=== PATIENT | male | born 1970 | race Caucasian/White ===

== ENCOUNTER 2016-06-28 08:13 | Emergency (ER) | payer OTHER ==
[~2016-06-28] VITALS: Ht 172.7 cm; Wt 60.0 kg
[~2016-06-28 08:13] MED LIST: ATV5X PO; BISM262S7 PO; BUPR-79 PO; CMPS25 PR; ERGO500037 PO; INSPMPHMLG; LANS30CA12 PO; METO-157 PO; ONDA4TAB46 PO; OXYC-57 PO
[2016-06-28 08:15] VITALS: TEMP 36.3; Ht 172.7 cm; Wt 60.0 kg
[2016-06-28] MEDS ORDERED: SODIUM CHLORIDE 0.9% 1000ML 1,000 ML IV STA ×2 (08:26→09:30)
[2016-06-28] MEDS ORDERED: DIAZEPAM INJ 5 MG/ML 2 ML CARP IV STA ×2 (08:26→10:10)
--- NOTE | 2016-06-28 08:32 | EMERGENCY ROOM VISIT NOTE ---
History Report prepared by Moni: Luana Monet Under the Supervision of: Dr. Cuong Burrows M.D. First contact with patient: 08:20 Chief Complaint: VOMITING Stated Complaint: VOMITING UP DUE TO GASTROPERESIS Nursing Triage Summary: pt c/o vomiting started at 0330 this am. feels weak. pt has cramping across abd. denies any diarrhea History of Present Illness The patient is a 45 year old male who presents to the Emergency Room with complaints of persistent vomiting that started around 0330 this morning. He has a history of gastroparesis and was seen here in the ED and hospital last month for the same symptoms. He complains of some crampy abdominal pain but denies any diarrhea. He notes he feels weak currently. He denies any recent sick contacts. The patient is diabetic and states his blood sugar was 227 when he checked last night. He denies any recent syncopal episodes, headaches, shortness of breath or chest pain. Source of History: patient Onset: 0330 this morning Position: other (global) Timing: other (persistent) Associated Symptoms: + abdominal pain, + nausea, No SOB, No chest pain, No diarrhea, No headache Note: The patient denies any recent syncopal episodes. Review of Systems See HPI for pertinent positives & negatives. A total of 10 systems reviewed and were otherwise negative. Past Medical & Surgical Medical Problems: (1) Abdominal pain (2) Acute appendicitis (3) Diabetes (4) DKA (diabetic ketoacidoses) (5) Hyperglycemia due to type 1 diabetes mellitus (6) Nausea & vomiting Family History Diabetes mellitus Social History Smoking Status: Never Smoker Alcohol Use: none Drug Use: none Marital Status: Housing Status: lives with family Occupation Status: employed Current/Historical Medications Scheduled Bupropion (Wellbutrin Sr), 150 MG PO BID Ergocalciferol (Vitamin D 84388 Unit), 50,000 UNIT PO WK Insulin Human Lispro (Insulin Humalog Pump ), 1 EA N/A UD Lansoprazole (Prevacid), 30 MG PO DAILY Metoclopramide (Reglan), 10 MG PO AC Scheduled PRN Bismuth Subsalicylate (Pepto-Bismol), 15 ML PO UD PRN for GI Upset Diazepam (Valium), 1 TAB PO TID PRN for Nausea Lorazepam (Lorazepam), 0.25-0.5 MG PO TID PRN for Anxiety Ondansetron Hcl (Zofran), 4 MG PO for Nausea Oxycodone/Acetaminophen 5MG/325MG (Percocet 5MG/325MG), 1-2 TABLETS PO Q4H PRN for Pain Miscellaneous Medications Prochlorperazine (Compazine Supp), 25 MG AK Allergies Coded Allergies: Shellfish (Verified Allergy, Severe, anaphylaxis, 06/28/16) Promethazine (Verified Allergy, Intermediate, itchy/hives, 06/28/16) Physical Exam Vital Signs Date Time Temp Pulse Resp B/P Pulse Ox O2 Delivery O2 Flow Rate FiO2 06/28/16 12:31 101 20 137/80 99 06/28/16 11:41 109 20 150/87 99 Room Air 06/28/16 10:39 100 12 151/86 95 Room Air 06/28/16 10:00 102 14 148/84 98 Room Air 06/28/16 09:00 91 16 159/91 96 Room Air 06/28/16 09:00 98 Room Air 06/28/16 08:15 36.3 95 18 122/73 99 Room Air Physical Exam GENERAL: Patient appears to be in moderate distress and is nauseous and dehydrated appearing. He is holding a vomit bag on exam. HEENT: No acute trauma, normocephalic atraumatic, mucous membranes dry, no nasal congestion, no scleral icterus. NECK: No stridor, no adenopathy, no meningismus, trachea is midline. LUNGS: No dyspnea. Clear to auscultation and equal bilaterally. No wheeze, no rhonchi. HEART: Mildly tachycardic heart rate, regular rhythm. No murmurs, rubs, gallops appreciated. ABDOMEN: Soft, nontender, bowel sounds positive, no masses appreciated, no peritonitis. BACK: No midline tenderness, no CVA tenderness EXTREMITIES: Normal motion all extremities, no cyanosis, no edema. NEUROLOGIC: Alert and oriented, no acute motor or sensory deficits, no focal weakness, cranial nerves grossly intact. SKIN: No rash, no jaundice, no diaphoresis. Medical Decision & Procedures Laboratory Results 06/28/16 08:51 Red Blood Count 4.22, Mean Corpuscular Volume 87.9, Mean Corpuscular Hemoglobin 31.0, Mean Corpuscular Hemoglobin Concent 35.3, Mean Platelet Volume 9.0, Neutrophils (%) (Auto) 86.5, Lymphocytes (%) (Auto) 9.3, Monocytes (%) (Auto) 3.5, Eosinophils (%) (Auto) 0.1, Basophils (%) (Auto) 0.2, Neutrophils # (Auto) 13.12, Lymphocytes # (Auto) 1.41, Monocytes # (Auto) 0.53, Eosinophils # (Auto) 0.01, Basophils # (Auto) 0.03 06/28/16 08:51 Test 06/28/16 08:32 06/28/16 08:51 Bedside Glucose 216 mg/dl (70-99) White Blood Count 15.16 K/uL (4.8-10.8) Red Blood Count 4.22 M/uL (4.7-6.1) Hemoglobin 13.1 g/dL (14.0-18.0) Hematocrit 37.1 % (42-52) Mean Corpuscular Volume 87.9 fL (80-100) Mean Corpuscular Hemoglobin 31.0 pg (25-34) Mean Corpuscular Hemoglobin Concent 35.3 g/dl (32-36) Platelet Count 328 K/uL (130-400) Mean Platelet Volume 9.0 fL (7.4-10.4) Neutrophils (%) (Auto) 86.5 % Lymphocytes (%) (Auto) 9.3 % Monocytes (%) (Auto) 3.5 % Eosinophils (%) (Auto) 0.1 % Basophils (%) (Auto) 0.2 % Neutrophils # (Auto) 13.12 K/uL (1.4-6.5) Lymphocytes # (Auto) 1.41 K/uL (1.2-3.4) Monocytes # (Auto) 0.53 K/uL (0.11-0.59) Eosinophils # (Auto) 0.01 K/uL (0-0.5) Basophils # (Auto) 0.03 K/uL (0-0.2) RDW Standard Deviation 39.4 fL (36.4-46.3) RDW Coefficient of Variation 12.3 % (11.5-14.5) Immature Granulocyte % (Auto) 0.4 % Immature Granulocyte # (Auto) 0.06 K/uL (0.00-0.02) Anion Gap 14.0 mmol/L (3-11) Est Creatinine Clear Calc Drug Dose 114.7 ml/min Estimated GFR () 132.9 Estimated GFR (Non- 114.7 BUN/Creatinine Ratio 21.6 (10-20) Calcium Level 8.7 mg/dl (8.5-10.1) Total Bilirubin 0.7 mg/dl (0.2-1) Direct Bilirubin 0.1 mg/dl (0-0.2) Aspartate Amino Transf (AST/SGOT) 12 U/L (15-37) Alanine Aminotransferase (ALT/SGPT) 14 U/L (12-78) Alkaline Phosphatase 97 U/L (45-117) Total Protein 6.9 gm/dl (6.4-8.2) Albumin 3.5 gm/dl (3.4-5.0) Lipase 75 U/L (73-393) Laboratory results as reviewed by me. Medications Administered Medications (Trade) Dose Ordered Sig/Guerrero Route Start Time Stop Time Status Last Admin Dose Admin Sodium Chloride (Nss 1000ml) 1,000 ml @ 999 mls/hr Q1H1M STAT IV 06/28/16 08:26 06/28/16 09:26 DC 06/28/16 08:43 999 MLS/HR Diazepam 5 mg 5 mg NOW STAT IV 06/28/16 08:26 06/28/16 08:27 DC 06/28/16 08:26 5 MG Sodium Chloride (Nss 1000ml) 1,000 ml @ 999 mls/hr Q1H1M STAT IV 06/28/16 09:30 06/28/16 10:30 DC 06/28/16 09:59 999 MLS/HR Diazepam (Valium Inj) 5 mg NOW STAT IV 06/28/16 10:10 06/28/16 10:11 DC 06/28/16 10:28 5 MG ED Course 0823: The patient was evaluated in room B5. A complete history and physical exam was performed. 0826: Valium 5 mg IV, NSS 1000 ml @ 999 mls/hr IV. 0925: I reevaluated the patient. He is feeling much better. 0930: NSS 1000 ml @ 999 mls/hr IV. 1007: I reassessed the patient. He is feeling pretty well and would like to go home. He does complain of some mild nausea. I will order medications before he leaves. 1010: Valium 5 mg IV. 1200: I reevaluated the patient. He is feeling well and ready to go home. I discussed his results and discharge instructions with him and his father and they verbalized complete understanding and agreement. Medical Decision Differential: Gastroenteritis, Food Borne, Esophageal Perforation, , Electrolyte Abnormality, Dehydration, Intraabdominal Infection, UTI/ Pyelonephritis, Bowel Obstruction, Biliary Pathology, amongst other pathology entertained. 45 yr old male well known to department for his chronic nausea/vomiting disorder from gastroparesis. He has no abdominal TTP nor evidence of sepsis. No fevers. Does have mild bump in WBC though his is always a bit elevated. Likely this is dehydration related. BG is mildly bumped as well though he has no evidence of DKA at this time. He was somewhat tachycardic on arrival which improved with fluids and valium. Valium worked well for controlling nausea and was given second dose prior to discharge. Feeling well and wants to go home. Father agrees with this plan. Aware RTED at any time if worsening or other concerns. Nothing found in PMDP when checked thus will give a short supply valium with instructions regarding this. [place] Drug Monitoring Program Search Results: patient reviewed within database, no issues identified Impression Primary Impression: Vomiting Additional Impressions: Dehydration Gastroparesis Scribe Attestation The scribe's documentation has been prepared under my direction and personally reviewed by me in its entirety. I confirm that the note above accurately reflects all work, treatment, procedures, and medical decision making performed by me. Departure Information Dispostion Home / Self-Care Prescriptions Diazepam (VALIUM) 5 Mg Tab 1 TAB PO TID Y for Nausea, #10 TAB Prov: Cuong Burrows M.D. 06/28/16 Referrals [facility] Provider Patient Instructions ED Nausea Vomiting, My [facility] Additional Instructions You have received a benzodiazepine medication prescription. These medications may cause drowsiness and should not be used with other sedative medications. Do not drive, drink alcohol, perform dangerous activities, nor make important decisions after taking these medications. MCC use or inappropriate use may lead to addiction. Problem Qualifiers Primary Impression: Vomiting Vomiting type: unspecified Vomiting Intractability: non-intractable Nausea presence: with nausea Qualified Codes: R11.2 - Nausea with vomiting, unspecified
[2016-06-28 09:00] VITALS: O2SAT 98
[2016-06-28 09:08] LABS: BASO % 0.2 %; BASO ABS # 0.03 K/uL (0-0.2); COMPLETE YES; EOS % 0.1 %; HEMATOCRIT 37.1 % (42-52); IG% 0.4 %; LYMPH % 9.3 %; LYMPH ABS # 1.41 K/uL (1.2-3.4); MEAN CELL VOLUME 87.9 fL (80-100); MEAN CORPUSCULAR HGB CONC 35.3 g/dl (32-36); MONO % 3.5 %; NEUT % 86.5 %; PLATELET COUNT 328 K/uL (130-400); RED BLOOD COUNT 4.22 M/uL (4.7-6.1); WHITE BLOOD COUNT 15.16 K/uL (4.8-10.8)
[2016-06-28 09:26] LABS: BUN/CREATININE RATIO 21.6 (10-20); CALCIUM 8.7 mg/dl (8.5-10.1); CREATININE 0.69 mg/dl (0.60-1.40); POTASSIUM 3.4 mmol/L (3.5-5.1)
[2016-06-28] MEDS ORDERED: DIAZ5TAB3 PO (10:19)
[2016-06-28 12:31] VITALS: BP 137/80; PULSE 101; O2SAT 99
== END 2016-06-28 12:32 | disposition home or self-care (01) ==
LOC: C.EDB 08:14
DX: E10.43 Type 1 diabetes mellitus with diabetic autonomic (poly)neuropathy (principal); R11.2 Nausea with vomiting, unspecified; Z83.3 Family history of diabetes mellitus; Z79.4 Long term (current) use of insulin; Z79.899 Other long term (current) drug therapy; E86.0 Dehydration

== ENCOUNTER 2017-04-27 21:59 | Emergency (ER) | payer OTHER ==
[~2017-04-27] VITALS: Ht 170.2 cm; Wt 60.0 kg
[2017-04-27 22:03] VITALS: TEMP 36.4; Ht 170.2 cm; Wt 60.0 kg
[2017-04-27] MEDS ORDERED: ONDANSETRON INJ 8 MG in DEXTROSE 5% 50ML 50 ML IV SCH (22:21)
[2017-04-27] MEDS ORDERED: ONDANSETRON 8 MG/54 ML D5W IV STA (22:21)
[2017-04-27] MEDS ORDERED: SODIUM CHLORIDE 0.9% 1000ML 1,000 ML IV STA (22:21)
[2017-04-27] MEDS ORDERED: METOCLOPRAMIDE HCL INJ 20 MG in SODIUM CHLORIDE 0.9% 50ML 50 ML IV STA (22:30)
[2017-04-27 22:33] LABS: BASO % 0.4 %; BASO ABS # 0.04 K/uL (0-0.2); COMPLETE YES; EOS % 0.3 %; HEMATOCRIT 37.3 % (42-52); IG% 0.6 %; LYMPH % 15.1 %; LYMPH ABS # 1.64 K/uL (1.2-3.4); MEAN CELL VOLUME 87.4 fL (80-100); MEAN CORPUSCULAR HEMOGLOBIN 30.7 pg (25-34); MEAN CORPUSCULAR HGB CONC 35.1 g/dl (32-36); MEAN PLATELET VOLUME 9.3 fL (7.4-10.4); MONO % 4.1 %; NEUT % 79.5 %; PLATELET COUNT 331 K/uL (130-400); RED BLOOD COUNT 4.27 M/uL (4.7-6.1); WHITE BLOOD COUNT 10.86 K/uL (4.8-10.8)
--- NOTE | 2017-04-27 22:37 | EMERGENCY ROOM VISIT NOTE ---
History Report prepared by Moni: Milind Soliz Under the Supervision of: Dr. Demarcus Salmeron M.D. First contact with patient: 22:18 Chief Complaint: VOMITING Stated Complaint: DIABETEIC, GASTROPERESIS- THROWING UP History of Present Illness The patient is a 46 year old male with a past medical history of diabetes and gastroparesis who presents to the ED with a cc of intermittent vomiting beginning 6 hours ago. Positive for nausea. Negative for abdominal pain , fever, chills, cough, diarrhea, urinary symptoms, and sore throat. Per dad, the patient has been experiencing symptoms of nausea for the past 6. He notes that he took the patient to [place] emergency room 4 hours ago, but spent 2 hours waiting. He reports that he then took the patient to the emergency room at [facility]. He states that the patient's sugars were at 195 when they arrived here today. The patient states that he took medication for his nausea with no relief to his symptoms. He denies any recent travel, antibiotic use, and known sick contacts. Source of History: patient, parent Onset: 6 hours ago Position: abdomen Quality: other (vomiting) Timing: intermittent Associated Symptoms: + nausea, No fevers, No chills, No sorethroat, No cough , No abdominal pain, No diarrhea, No urinary symptoms Review of Systems See HPI for pertinent positives and negatives. A total of ten systems were reviewed and were otherwise negative. Past Medical & Surgical Medical Problems: (1) Abdominal pain (2) Acute appendicitis (3) Diabetes (4) DKA (diabetic ketoacidoses) (5) Hyperglycemia due to type 1 diabetes mellitus (6) Nausea & vomiting Family History Diabetes mellitus Social History Smoking Status: Never Smoker Alcohol Use: none Drug Use: none Marital Status: Housing Status: lives with family Occupation Status: employed Current/Historical Medications Scheduled Insulin Human Lispro (Insulin Humalog Pump ), 1 EA N/A UD Lansoprazole (Prevacid), 30 MG PO DAILY Metoclopramide (Reglan), 10 MG PO AC Scheduled PRN Bismuth Subsalicylate (Pepto-Bismol), 15 ML PO UD PRN for GI Upset Lorazepam (Lorazepam), 0.25-0.5 MG PO TID PRN for Anxiety Metoclopramide (Reglan), 10 MG PO Q6H PRN for Nausea Ondansetron Hcl (Zofran), 4 MG PO for Nausea Oxycodone/Acetaminophen 5MG/325MG (Percocet 5MG/325MG), 1-2 TABLETS PO Q4H PRN for Pain Miscellaneous Medications Prochlorperazine (Compazine Supp), 25 MG [place] Allergies Coded Allergies: Shellfish (Verified Allergy, Severe, anaphylaxis, 04/27/17) Promethazine (Verified Allergy, Intermediate, itchy/hives, 04/27/17) Physical Exam Vital Signs Date Time Temp Pulse Resp B/P (MAP) Pulse Ox O2 Delivery O2 Flow Rate FiO2 04/28/17 01:10 95 16 151/90 97 Room Air 04/27/17 23:43 97 179/111 95 04/27/17 23:42 95 177/107 97 04/27/17 23:40 95 181/109 95 04/27/17 23:01 98 17 192/102 99 04/27/17 22:43 95 04/27/17 22:42 95 179/105 94 04/27/17 22:03 36.4 98 18 160/92 99 Room Air Physical Exam GENERAL: Awake, alert, ill appearing, NAD HENT: Normocephalic, atraumatic. Dry MM. EYES: Normal conjunctiva. Sclera non-icteric. NECK: Supple. No nuchal rigidity. FROM. RESPIRATORY: CTAB, no rhonchi, wheezing, crackles CARDIAC: RRR, no MRG ABDOMEN: Soft, NTND, BS+. No tenderness to palpation MSK: No chest wall TTP, no LE edema, no CVA tenderness to palpation. NEURO: GCS 15, CN 2-12 intact, moves all 4s on command SKIN: No rash or jaundice noted. Insulin pump insertion site to the right abdomen, no tenderness to palpation. Medical Decision & Procedures ER Provider Diagnostic Interpretation: Radiology results as stated below per my review and interpretation. CHEST X-RAY: Trachea is midline. Costophrenic angles are well demarcated. No air under diaphragm. No evidence of pneumothorax or pleural effusion. No definitive consolidation scene. Prominent vasculature. Bony structures appear grossly normal. Laboratory Results 04/27/17 22:23 Red Blood Count 4.27, Mean Corpuscular Volume 87.4, Mean Corpuscular Hemoglobin 30.7, Mean Corpuscular Hemoglobin Concent 35.1, Mean Platelet Volume 9.3, Neutrophils (%) (Auto) 79.5, Lymphocytes (%) (Auto) 15.1, Monocytes (%) (Auto) 4.1, Eosinophils (%) (Auto) 0.3, Basophils (%) (Auto) 0.4, Neutrophils # (Auto) 8.64, Lymphocytes # (Auto) 1.64, Monocytes # (Auto) 0.45, Eosinophils # (Auto) 0.03, Basophils # (Auto) 0.04 Test 04/27/17 22:07 04/27/17 22:23 04/27/17 22:43 04/27/17 22:56 Bedside Glucose 195 mg/dl (70-99) White Blood Count 10.86 K/uL (4.8-10.8) Red Blood Count 4.27 M/uL (4.7-6.1) Hemoglobin 13.1 g/dL (14.0-18.0) Hematocrit 37.3 % (42-52) Mean Corpuscular Volume 87.4 fL (80-100) Mean Corpuscular Hemoglobin 30.7 pg (25-34) Mean Corpuscular Hemoglobin Concent 35.1 g/dl (32-36) Platelet Count 331 K/uL (130-400) Mean Platelet Volume 9.3 fL (7.4-10.4) Neutrophils (%) (Auto) 79.5 % Lymphocytes (%) (Auto) 15.1 % Monocytes (%) (Auto) 4.1 % Eosinophils (%) (Auto) 0.3 % Basophils (%) (Auto) 0.4 % Neutrophils # (Auto) 8.64 K/uL (1.4-6.5) Lymphocytes # (Auto) 1.64 K/uL (1.2-3.4) Monocytes # (Auto) 0.45 K/uL (0.11-0.59) Eosinophils # (Auto) 0.03 K/uL (0-0.5) Basophils # (Auto) 0.04 K/uL (0-0.2) RDW Standard Deviation 38.4 fL (36.4-46.3) RDW Coefficient of Variation 12.1 % (11.5-14.5) Immature Granulocyte % (Auto) 0.6 % Immature Granulocyte # (Auto) 0.06 K/uL (0.00-0.02) Total Bilirubin 0.6 mg/dl (0.2-1) Direct Bilirubin < 0.1 mg/dl (0-0.2) Aspartate Amino Transf (AST/SGOT) 19 U/L (15-37) Alanine Aminotransferase (ALT/SGPT) 21 U/L (12-78) Alkaline Phosphatase 107 U/L (45-117) Total Protein 7.3 gm/dl (6.4-8.2) Albumin 3.5 gm/dl (3.4-5.0) Lipase 88 U/L (73-393) Bedside Lactic Acid Venous 1.75 mmol/L (0.90-1.70) Venous Blood pH 7.46 (7.36-7.41) Venous Blood Partial Pressure CO2 43 mmHg (38.0-50.0) Venous Blood Partial Pressure O2 47 mmHg Venous Blood HCO3 30 mmol/L Venous Blood Oxygen Saturation 76.7 % Venous Blood Base Excess 5.3 mEq/L Test 04/27/17 23:19 Bedside Hemoglobin 13.3 g/dl (14.0-18.0) Bedside Hematocrit 39 % (42-52) Bedside Sodium 138 mEq/L (135-144) Bedside Potassium 3.7 mEq/L (3.3-5.0) Bedside Chloride 96 mEq/L (101-112) Bedside Total CO2 27 mEq/l (24-31) Anion Gap 19.0 mmol/L (16-25) Bedside Blood Urea Nitrogen 18 mg/dl (7-18) Bedside Creatinine 0.9 mg/dl (0.6-1.3) Bedside Glucose (other) 206 mg/dl (70-99) Bedside Ionized Calcium (Peterson) 1.12 mmol/l (1.12-1.32) Laboratory results reviewed by me Medications Administered Medications (Trade) Dose Ordered Sig/Guerrero Route Start Time Stop Time Status Last Admin Dose Admin Sodium Chloride 1,000 ml @ 999 mls/hr Q1H1M STAT IV 04/27/17 22:21 04/27/17 23:21 DC 04/27/17 23:07 999 MLS/HR Metoclopramide HCl 20 mg/Sodium Chloride 54 ml @ 162 mls/hr ONE STAT IV 04/27/17 22:30 04/27/17 22:49 DC 04/27/17 23:12 162 MLS/HR Ondansetron HCl 8 mg/Dextrose 54 ml @ 216 mls/hr 2221 IV 04/27/17 22:21 04/27/17 23:30 DC 04/27/17 23:26 216 MLS/HR Haloperidol Lactate (Haldol Inj) 5 mg NOW STAT IV 04/28/17 00:14 04/28/17 00:16 DC 04/28/17 00:20 5 MG ECG Indication: vomiting Rate (beats per minute): 93 Rhythm: normal sinus Findings: no ectopy, other (Normal intervals, right axis deviation, no STS or TWI) ED Course 2224: The patient was evaluated in room C4. A complete history and physical exam was performed. 0016: I reevaluated and updated the patient. He is feeling a little better. 0047: I reevaluated and updated the patient. I gave him some dragan brandon that he was able to keep down. 0104: I reevaluated and updated the patient. I talked to the father. He lives in [place]. The patient will be able to stay with him where he can be monitored. 0106: I reevaluated the patient. Discussed results and discharge instructions: He verbalized understanding and agreement. The patient is ready for discharge. Medical Decision The patient is a 46 year old male with a past medical history of diabetes and gastroparesis who presents to the ED with a cc of intermittent vomiting beginning 6 hours ago. Positive for nausea. Negative for abdominal pain , fever, chills, cough, diarrhea, urinary symptoms, and sore throat. Differential diagnosis: Etiologies such as appendicitis, diverticulitis, PUD, biliary pathology, UTI, pancreatitis, obstruction, mesenteric ischemia, aortic pathology, infections, inflammatory bowel disease, renal colic, as well as others were entertained. Patient was seen and evaluated the bedside. Patient is a thin and history of Diabetes and Does Have an Insulin Pump. Patient Has Comparison Nausea but without Any Other Infectious Symptoms. Patient Denies Any Abdominal Pain, Cough , Fevers, Chills, Sore Throat. Patient denies any recent changes in medications. Patient was waiting in triage at [place] for possible referral but they left as he was not receiving care very quickly. Patient did have blood work that was completed. Patient's anion gap was 15 but had a normal bicarbonate and normal pH less likely to be DKA. Patient received fluids. Patient did receive anti-medics and his nausea improved. Patient is feeling improved but did receive a second round of anti-emetics. He was able tolerate 8 ounces of dragan brandon with eyes. I did discuss with the patient and the father who is at the bedside. The patient would stay with the father currently lives in [facility] so he would be watched. Told that he may not be very hungry but that if he can tolerate liquids that would be best. He was then told to slowly advance his diet as tolerated and start with broths soups. Father and patient are agreeable with plan of care. Patient was given a home pack and was given an additional prescription for anti nausea medication. Patient is suitable for outpatient follow-up and treatment. Patient does not have a surgical abdomen nor does he require any more advanced imaging at this time given that he is tolerated by mouth as well. Patient was given strict follow-up, discharge, and return precautions. All questions were answered. Patient was deemed suitable for outpatient follow-up at this time. Patient agreed with the plan of care and was safely discharged home. Medication Reconcilliation Current Medication List: was personally reviewed by me Blood Pressure Screening Patient's blood pressure: Elevated blood pressure Blood pressure disposition: Referred to PCP Impression Primary Impression: Nausea & vomiting Additional Impressions: Hyperglycemia due to type 1 diabetes mellitus Gastroparesis Scribe Attestation The scribe's documentation has been prepared under my direction and personally reviewed by me in its entirety. I confirm that the note above accurately reflects all work, treatment, procedures, and medical decision making performed by me. Departure Information Dispostion Home / Self-Care Prescriptions Metoclopramide (Reglan) 10 Mg Tab 10 MG PO Q6H Y for Nausea, #15 TAB Prov: Demarcus Salmeron M.D. 04/28/17 Referrals No Doctor, Assigned (PCP) Forms HOME CARE DOCUMENTATION FORM, IMPORTANT VISIT INFORMATION Patient Instructions ED Diabetic Gastroparesis, ED Nausea Vomiting, My [facility] Additional Instructions Please return to the emergency department if you have worsening or recurrent symptoms not amenable to at-home treatment. Please call for a follow-up appointment with her primary care physician. Please take your medications as prescribed. If you have other concerns and/or complaints please feel free to also call your primary care physician's office or return the ED for further evaluation, management, and treatment. Take your medications as prescribed. If taking an antibiotic consider taking a probiotic and/or eating yogurt, but at the least, please take with food as it can cause upset stomach. If culture results are not available at discharge, if they are positive for concern of infection, you will be informed of the results as soon as they are available. If you were seen between 11pm and 7AM all radiology reads will be re-read by our in house staff. If any major discrepancies are discovered, you will be notified. You have been examined and treated today on an emergency basis only. This is not a substitute for, or an effort to provide, complete comprehensive medical care. It is impossible to recognize and treat all injuries or illnesses in a single emergency department visit. It is therefore important that you follow up closely with [facility], your PCP, and/or your specialist(s). Call as soon as possible for an appointment. Thank you for your time and consideration. I look forward to speaking with you again soon. Please don't hesitate to call us if you have any questions. Problem Qualifiers Primary Impression: Nausea & vomiting Vomiting type: unspecified Vomiting Intractability: unspecified Qualified Codes: R11.2 - Nausea with vomiting, unspecified
[2017-04-27 22:55] LABS: ALKALINE PHOSPHATASE 107 U/L (45-117); ALT/SGPT 21 U/L (12-78); AST/SGOT 19 U/L (15-37)
[2017-04-27] MEDS ORDERED: METOCLOPRAMIDE HCL INJ 5 MG/ML 2 ML VIAL ONE ×2 (23:06→23:09)
[2017-04-27 23:09] LABS: VEN BLD GAS O2 SATURATION 76.7 %; VEN BLOOD GAS BASE EXCESS 5.3 mEq/L
[2017-04-27 23:36] LABS: ISTAT CREATININE 0.9 mg/dl (0.6-1.3); ISTAT HEMOGLOBIN 13.3 g/dl (14.0-18.0); ISTAT IONIZED CALCIUM 1.12 mmol/l (1.12-1.32)
[2017-04-28] MEDS ORDERED: HALOPERIDOL LACTATE 5 MG/ML 1 ML VIAL IV STA (00:14)
[2017-04-28] MEDS ORDERED: METO-157 PO (01:00)
[2017-04-28] MEDS ORDERED: METOCLOPRAMIDE HCL 10 MG TAB PO STA (01:05)
[2017-04-28] MEDS ORDERED: METOCLOPRAMIDE HCL 5 MG TAB PO ONE (01:11)
[2017-04-28 01:15] VITALS: BP 151/90; PULSE 95; O2SAT 97
--- NOTE | 2017-04-28 06:28 | DIAGNOSTIC IMAGING REPORT ---
CHEST ONE VIEW PORTABLE CLINICAL HISTORY: Pain, radiating to the abdomen. COMPARISON STUDY: February 02, 2016 FINDINGS: The cardiac and mediastinal contours are normal. There is no evidence of focal pulmonary consolidation. There is no evidence of failure. No pleural effusions are visualized.[ No free intraperitoneal air is visualized. IMPRESSION: No active disease in the chest. Electronically signed by: Geovanny Moncada M.D. 04/28/2017 6:26 AM Dictated Date/Time: 04/28/2017 6:26 AM
== END 2017-04-28 01:15 | disposition home or self-care (01) ==
LOC: C.EDB 22:01 → C.EDC 04-28 01:15
DX: R11.2 Nausea with vomiting, unspecified (principal); E10.65 Type 1 diabetes mellitus with hyperglycemia; E10.43 Type 1 diabetes mellitus with diabetic autonomic (poly)neuropathy; Z96.41 Presence of insulin pump (external) (internal); Z83.3 Family history of diabetes mellitus; Z79.899 Other long term (current) drug therapy

== ENCOUNTER 2017-05-04 17:07 | Inpatient (IN) | payer OTHER ==
[~2017-05-04] VITALS: Ht 172.7 cm; Wt 59.5 kg
[~2017-05-04 17:07] MED LIST changes: -BUPR-79 PO; -ERGO500037 PO
[2017-05-04] MEDS ORDERED: SODIUM CHLORIDE 0.9% 1000ML 1,000 ML IV STA ×2 (18:08→20:16)
[2017-05-04] MEDS ORDERED: ONDANSETRON 8 MG/54 ML D5W IV ONE (18:15)
[2017-05-04] MEDS ORDERED: ONDANSETRON INJ 8 MG in DEXTROSE 5% 50ML 50 ML IV STA (18:23)
--- NOTE | 2017-05-04 18:25 | EMERGENCY ROOM VISIT NOTE ---
History First contact with patient: 18:03 Chief Complaint: VOMITING Stated Complaint: VOMITING, NAUSEA, PT IS DIABETIC Nursing Triage Summary: nausea and vomiting started today about 2 pm. was here recently for similar episode. patient is a diabetic History of Present Illness The patient is a 46 year old male who presents to the Emergency Room with complaints of nausea and vomiting that started around 2 PM today. He states he has not been able to keep anything down since that time. He denies any pain associated with his nausea and vomiting, he does have associated chills, but denies any known fevers. He was feeling well earlier in the day and feeling well yesterday. He reports having a normal bowel movement this morning, and states he has been passing gas. 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 Patient is a type I diabetic, on an insulin pump, with history of DKA in the past. He states that his sugars have been fine and his pump has not had any errors in function. He changed his site today. His blood sugar prior to arrival today was 309. He denies any symptoms of cough, congestion, sore throat, he denies any headaches, chest pain, shortness of breath, abdominal pain , back pain, diarrhea, blood in his stool, dysuria or urinary frequency, rash. He states he was seen in the emergency department about one week ago for similar symptoms but he was not this bad, they were able to treat him in the emergency department and send him home. Review of Systems A complete 10 point review of systems was reviewed with the patient with pertinent positives and negatives as per history of present illness. All else were negative. Past Medical/Surgical History Medical Problems: (1) Abdominal pain (2) Acute appendicitis (3) Diabetes (4) DKA (diabetic ketoacidoses) (5) Hyperglycemia due to type 1 diabetes mellitus (6) Nausea & vomiting Family History Diabetes mellitus Social History Smoking Status: Never Smoker Alcohol Use: none Drug Use: none Marital Status: Housing Status: lives with family Occupation Status: employed Current/Historical Medications Scheduled Insulin Human Lispro (Insulin Humalog Pump ), 1 EA N/A UD Lansoprazole (Prevacid), 30 MG PO DAILY Scheduled PRN Bismuth Subsalicylate (Pepto-Bismol), 15 ML PO UD PRN for GI Upset Lorazepam (Lorazepam), 0.25-0.5 MG PO TID PRN for Anxiety Metoclopramide (Reglan), 10 MG PO Q6H PRN for Nausea Ondansetron Hcl (Zofran), 4 MG PO for Nausea Oxycodone/Acetaminophen 5MG/325MG (Percocet 5MG/325MG), 1-2 TABLETS PO Q4H PRN for Pain Miscellaneous Medications Prochlorperazine (Compazine Supp), 25 MG WI Physical Exam Vital Signs Date Time Temp Pulse Resp B/P (MAP) Pulse Ox O2 Delivery O2 Flow Rate FiO2 05/04/17 23:21 97 20 173/99 98 Room Air 05/04/17 22:01 89 20 165/92 96 Room Air 05/04/17 20:41 89 20 165/89 98 Room Air 05/04/17 19:57 86 20 182/101 96 Room Air 05/04/17 19:37 91 05/04/17 19:10 95 20 184/106 98 05/04/17 17:18 36.8 107 18 178/100 99 Room Air Physical Exam CONSTITUTIONAL: No acute distress, but in obvious discomfort and actively vomiting. Dehydrated. Alert and oriented X 4 with normal affect. HEENT: Normocephalic, atraumatic. Pupils equal, round and reactive to light, EOMI. TMs normal. Pharynx normal. Dry mucous membranes. NECK: Supple, full active range of motion without discomfort. RESPIRATORY: Clear to auscultation bilaterally with no wheezing, crackles, rhonchi or stridor. Equal expansion bilaterally. CARDIOVASCULAR: Regular rate and rhythm with no murmurs, rubs or gallops. Normal peripheral perfusion. No edema. GASTROINTESTINAL: Soft, nontender, nondistended. No palpable masses, no hepatosplenomegaly, no guarding. No CVA tenderness. Hypoactive bowel sounds present in all quadrants. MUSCULOSKELETAL: Full range of motion of all joints without discomfort. INTEGUMENTARY: No rash or other significant dermatologic conditions noted. NEUROLOGIC: Cranial nerves II-XII grossly intact. No focal neurologic deficits noted. Normal strength and sensation, normal speech. Medical Decision & Procedures Laboratory Results Test 05/04/17 17:53 05/04/17 19:33 Total Bilirubin 0.6 mg/dl (0.2-1) Direct Bilirubin 0.1 mg/dl (0-0.2) Aspartate Amino Transf (AST/SGOT) 19 U/L (15-37) Alanine Aminotransferase (ALT/SGPT) 23 U/L (12-78) Alkaline Phosphatase 116 U/L (45-117) Total Protein 7.3 gm/dl (6.4-8.2) Albumin 3.4 gm/dl (3.4-5.0) Lipase 137 U/L (73-393) Beta-Hydroxybutyric Acid 5.18 mg/dL (0.2-2.81) Venous Blood pH 7.49 (7.36-7.41) Venous Blood Partial Pressure CO2 34 mmHg (38.0-50.0) Venous Blood Partial Pressure O2 74 mmHg Venous Blood HCO3 25 mmol/L Venous Blood Oxygen Saturation 94.5 % Venous Blood Base Excess 2.2 mEq/L Lactic Acid Level 1.0 mmol/L (0.4-2.0) Medications Administered Medications (Trade) Dose Ordered Sig/Guerrero Route Start Time Stop Time Status Last Admin Dose Admin Sodium Chloride 1,000 ml @ 999 mls/hr Q1H1M STAT IV 05/04/17 18:08 05/04/17 19:08 DC 05/04/17 18:47 999 MLS/HR Ondansetron HCl 8 mg/Dextrose 54 ml @ 200 mls/hr ONE STAT IV 05/04/17 18:23 05/04/17 18:39 DC 05/04/17 18:48 200 MLS/HR Metoclopramide HCl (Reglan Inj) 10 mg NOW STAT IV 05/04/17 20:10 05/04/17 20:11 DC 05/04/17 20:39 10 MG Sodium Chloride 1,000 ml @ 999 mls/hr Q1H1M STAT IV 05/04/17 20:16 05/04/17 21:16 DC 05/04/17 20:39 999 MLS/HR Prochlorperazine Edisylate (Compazine Inj) 10 mg NOW STAT IV 05/04/17 21:42 05/04/17 21:44 DC 05/04/17 22:01 10 MG Famotidine (Pepcid 20mg Iv Push) 20 mg NOW STAT IV 05/04/17 23:09 05/04/17 23:10 DC 05/04/17 23:17 20 MG Medical Decision CC: Patient presenting with complaint of vomiting Interpretation of Labs: Mild leukocytosis, mild anemia, hyperglycemia, no other significant electrolyte abnormalities, and gap is closed, renal function upper limits of normal (favors dehydration), normal liver enzymes and lipase. Lactic acid normal. Slightly elevated beta-hydroxybutyric acid level. No acidosis on venous blood gas. UA pending. Differential Diagnosis: Includes, but not limited to DKA, dehydration, hyperglycemia, other electrolyte abnormalities, gastroenteritis, food poisoning , small bowel obstruction, bowel perforation, gastritis, ulcer disease, among others. Medication Reconciliation: I attest that I have personally reviewed the patient' s current medication list. Vital signs review: I reviewed the patient's vital signs and interpret them as follows: T: Afebrile; BP: Hypertensive; HR: Tachycardic; RR: Within normal limits; Pulse Ox: Within normal limits on room air. Blood pressure screening: The patient was found to have an elevated blood pressure and was referred to their primary doctor for recheck and further treatment. Summary: Patient was evaluated at bedside, history and physical exam performed. Patient is alert and oriented, actively vomiting multiple times during my exam. The abdomen is soft and completely nontender, no hepatosplenomegaly or palpable masses. Patient denies any complaints of pain. His neurologic exam is intact with no focal deficits and he is oriented. Orders were placed at bedside for labs, UA, IV fluids for hydration, IV Zofran for nausea and vomiting, acute abdominal series to evaluate for bowel obstruction or free air. Patient discussed with Dr. Godoy, who agrees with my assessment and plan. Labs reviewed as above, no significant abnormalities, specifically no evidence of severe DKA today. Patient reassessed multiple times throughout ED stay, patient continues to have persistent vomiting and dry heaving, given 8 mg IV Zofran, as well as 10 mg IV Reglan, 10 mg IV Compazine. 2 L IV fluids. Nursing notified me the patient has refused to go to x-ray multiple times due to his persistent vomiting/dry heaves and discomfort. I did reevaluate the patient and expressed the importance of performing the abdominal x-ray to rule out concern for surgical problems, patient does agree to do this. X-ray radiology read pending. Nonobstructive bowel gas pattern and no free air by my read. Given patient's intractable vomiting after multiple antiemetics, I feel that he is not safe to be discharged home, as he will not be able to tolerate by mouth and he is a diabetic. Also concern for developing DKA, given slightly elevated beta-hydroxybutyric acid, however he is not acidotic at this time. I spoke on the phone with Dr. England, hospitalist, who agrees to evaluate the patient for admission. Patient and his family members were updated on all results and the plan for admission, they verbalized understanding and were agreeable to this. Head Trauma GCS Score: 15 Medication Reconcilliation Current Medication List: was personally reviewed by me Blood Pressure Screening Patient's blood pressure: Elevated blood pressure (pt to be admitted) Impression Primary Impression: Vomiting Additional Impression: Dehydration Departure Information Dispostion Being Evaluated By Hospitalist Condition FAIR Referrals No Doctor, Assigned (PCP) Patient Instructions [facility] Problem Qualifiers Primary Impression: Vomiting Vomiting type: unspecified Vomiting Intractability: intractable Nausea presence: with nausea Qualified Codes: R11.2 - Nausea with vomiting, unspecified
[2017-05-04 18:32] LABS: BASO % 0.3 %; BASO ABS # 0.03 K/uL (0-0.2); COMPLETE YES; EOS % 0.9 %; HEMATOCRIT 37.4 % (42-52); IG% 0.4 %; LYMPH % 17.3 %; LYMPH ABS # 2.02 K/uL (1.2-3.4); MEAN CELL VOLUME 87.6 fL (80-100); MEAN CORPUSCULAR HEMOGLOBIN 30.9 pg (25-34); MEAN CORPUSCULAR HGB CONC 35.3 g/dl (32-36); MEAN PLATELET VOLUME 9.4 fL (7.4-10.4); MONO % 6.8 %; NEUT % 74.3 %; PLATELET COUNT 377 K/uL (130-400); RED BLOOD COUNT 4.27 M/uL (4.7-6.1); WHITE BLOOD COUNT 11.65 K/uL (4.8-10.8)
[2017-05-04 18:44] LABS: BUN/CREATININE RATIO 21.7 (10-20); CALCIUM 9.2 mg/dl (8.5-10.1); CREATININE 1.28 mg/dl (0.60-1.40); POTASSIUM 4.2 mmol/L (3.5-5.1)
[2017-05-04 18:46] LABS: BETA-HYDROXYBUTYRATE 5.18 mg/dL (0.2-2.81)
[2017-05-04 19:47] LABS: VEN BLD GAS O2 SATURATION 94.5 %; VEN BLOOD GAS BASE EXCESS 2.2 mEq/L
[2017-05-04] MEDS ORDERED: METOCLOPRAMIDE HCL INJ 5 MG/ML 2 ML VIAL IV STA (20:10)
[2017-05-04] MEDS ORDERED: PROCHLORPERAZINE 5 MG/ML 2 ML VIAL IV STA (21:42)
[2017-05-04] MEDS ORDERED: FAMOTIDINE 20MG/5ML IV PUSH IV STA (23:09)
[2017-05-04] MEDS ORDERED: BISACODYL 10 MG SUPP PR STA (23:38)
[2017-05-04] MEDS ORDERED: ACETAMINOPHEN 325 MG TAB PO PRN (23:45)
[2017-05-04] MEDS ORDERED: ACETAMINOPHEN IV 100 ML IV PRN (23:45)
[2017-05-04] MEDS ORDERED: GLUCOSE 10 TABS/TUBE PO PRN (23:45)
[2017-05-04] MEDS ORDERED: DEXTROSE 50% 50 ML SYR IV PRN (23:45)
[2017-05-04] MEDS ORDERED: BISACODYL 10 MG SUPP PR PRN (23:45)
[2017-05-04] MEDS ORDERED: PROCHLORPERAZINE 25 MG SUPP PR PRN (23:45)
[2017-05-04] MEDS ORDERED: DiphenhydrAMINE HCL 50 MG/ML VIAL IV PRN (23:45)
[2017-05-04] MEDS ORDERED: METOCLOPRAMIDE HCL INJ 5 MG/ML 2 ML VIAL IV PRN (23:45)
[2017-05-04] MEDS ORDERED: GLUCOSE 40% GEL 15 GM TUBE PO PRN (23:45)
[2017-05-04] MEDS ORDERED: GLUCAGON FOR INJ 1 MG VIAL SQ PRN (23:45)
[2017-05-04] MEDS ORDERED: FAMOTIDINE IV INJ 20 MG in DEXTROSE 5% 100ML 100 ML IV SCH (23:45)
[2017-05-04] MEDS ORDERED: BISACODYL 10 MG SUPP ONE (23:48)
[2017-05-05] MEDS: NSS + 20MEQ KCL 1000ML 1,000 ML IV SCH ×2 (00:58→07:40)
[2017-05-05 01:10] VITALS: BP 172/96; PULSE 99; TEMP 36.5; O2SAT 98; BMI 19.9
[2017-05-05] MEDS ORDERED: PNEUMOCOCCAL ADMINISTRATION CHARGE ONE (01:30)
[2017-05-05] MEDS ORDERED: PNEUMOCOCCAL POLYSACCHARIDES 25 MCG/0.5 ML VIAL/SYR IM. ONE (01:30)
[2017-05-05] MEDS ORDERED: INSULIN HUMAN LISPRO (humaLOG) 100 UNITS/ML VIAL SC PRN (01:30)
--- NOTE | 2017-05-05 02:53 | History and Physical ---
History & Physical Date & Time of Service: May 05, 2017 at 02:44. The patient was seen and examined on 05/04/2017 Chief Complaint: Hyperglycemia Due To Dm Type 1, Nausea/Vomiting Primary Care Physician: No Doctor, Assigned History of Present Illness Source: patient, family, hospital records The patient is a 46-year-old male type I diabetic on insulin pump reports a sudden onset of nausea and vomiting and chills without fever, about 2:00 in the afternoon prior to arrival. He reports being unable to keep any foods or liquids down since that time. 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 He reports being seen in the emergency department one week ago for similar symptoms , which were not as bad, and was able to be sent home. Past Medical/Surgical History Medical Problems: (1) Diabetes Status: Chronic Family History Diabetes mellitus Social History Smoking Status: Never Smoker Smokeless Tobacco Use: No Alcohol Use: none Drug Use: none Marital Status: Housing status: lives with family Occupational Status: employed Immunizations History of Influenza Vaccine: Unknown History of Tetanus Vaccine?: Unknown History of Pneumococcal: Unknown History of Hepatitis B Vaccine: Unknown Multi-Drug Resistant Organisms History of MDRO: No Allergies Coded Allergies: Shellfish (Verified Allergy, Severe, anaphylaxis, 05/04/17) Promethazine (Verified Allergy, Intermediate, itchy/hives, 05/04/17) Home Medications Scheduled Insulin Human Lispro (Insulin Humalog Pump ), 1 EA N/A UD Lansoprazole (Prevacid), 30 MG PO DAILY Scheduled PRN Bismuth Subsalicylate (Pepto-Bismol), 15 ML PO UD PRN for GI Upset Lorazepam (Lorazepam), 0.25-0.5 MG PO TID PRN for Anxiety Metoclopramide (Reglan), 10 MG PO Q6H PRN for Nausea Ondansetron Hcl (Zofran), 4 MG PO for Nausea Oxycodone/Acetaminophen 5MG/325MG (Percocet 5MG/325MG), 1-2 TABLETS PO Q4H PRN for Pain Miscellaneous Medications Prochlorperazine (Compazine Supp), 25 MG [place] Review of Systems The patient denies chest pain, palpitations, shortness of breath, cough, lower extremity swelling, vision change, hearing change, sore throat, fevers, sweats, weight change, diarrhea or constipation, abdominal pain, pelvic pain, blood in urine or stool, dysuria, urinary frequency or urgency, memory loss, loss of consciousness, rash, abnormal bruising or bleeding, imbalance, focal weakness, numbness or tingling in arms or legs, generalized arthralgias or myalgias, back or neck pain, or night sweats. The review of systems is otherwise negative other than for that already noted above, and at least 10 systems have been reviewed. Physical Exam Vital Signs Date Time Temp Pulse Resp B/P (MAP) Pulse Ox O2 Delivery O2 Flow Rate FiO2 05/05/17 01:10 36.5 99 18 172/96 98 Room Air 05/04/17 23:55 70 20 181/93 96 Room Air 05/04/17 23:21 97 20 173/99 98 Room Air 05/04/17 22:01 89 20 165/92 96 Room Air 05/04/17 20:41 89 20 165/89 98 Room Air 05/04/17 19:57 86 20 182/101 96 Room Air 05/04/17 19:37 91 05/04/17 19:10 95 20 184/106 98 05/04/17 17:18 36.8 107 18 178/100 99 Room Air The patient is awake, well-developed and adequately nourished, alert and oriented 3, normocephalic and atraumatic, lying in bed on his right side, with vomit bucket present , but otherwise in no acute distress. HEENT--PERRL, EOMI, mucous membranes and oropharynx dry. Neck--supple, no JVD or bruits, thyroid normal, trachea midline, no adenopathy. Heart--normal S1 and S2, no extra beats, no murmurs, rubs or gallops. Lungs--clear bilaterally with good air movement, no respiratory distress, no accessory muscle use. Abdomen--decreased bowel sounds, mildly firm, generalized tenderness, nondistended, no hernias or masses, no organomegaly. Extremities--no cyanosis, clubbing or edema. There are good distal pulses b/l. Dermatologic--normal skin turgor, normal color, warm and dry, no abnormal lymph nodes, no rash. Neurologic--cranial nerves II through XII grossly intact. Rheumatologic--normal range of motion. Psychiatric--normal affect. Diagnostics Laboratory Results Results Past 24 Hours Test 05/04/17 17:53 05/04/17 19:08 05/04/17 19:33 05/04/17 23:20 Range/Units White Blood Count 11.65 4.8-10.8 K/uL Red Blood Count 4.27 4.7-6.1 M/uL Hemoglobin 13.2 14.0-18.0 g/dL Hematocrit 37.4 42-52 % Mean Corpuscular Volume 87.6 80-100 fL Mean Corpuscular Hemoglobin 30.9 25-34 pg Mean Corpuscular Hemoglobin Concent 35.3 32-36 g/dl Platelet Count 377 130-400 K/uL Mean Platelet Volume 9.4 7.4-10.4 fL Neutrophils (%) (Auto) 74.3 % Lymphocytes (%) (Auto) 17.3 % Monocytes (%) (Auto) 6.8 % Eosinophils (%) (Auto) 0.9 % Basophils (%) (Auto) 0.3 % Neutrophils # (Auto) 8.66 1.4-6.5 K/uL Lymphocytes # (Auto) 2.02 1.2-3.4 K/uL Monocytes # (Auto) 0.79 0.11-0.59 K/uL Eosinophils # (Auto) 0.10 0-0.5 K/uL Basophils # (Auto) 0.03 0-0.2 K/uL RDW Standard Deviation 38.4 36.4-46.3 fL RDW Coefficient of Variation 12.1 11.5-14.5 % Immature Granulocyte % (Auto) 0.4 % Immature Granulocyte # (Auto) 0.05 0.00-0.02 K/uL Sodium Level 134 136-145 mmol/L Potassium Level 4.2 3.5-5.1 mmol/L Chloride Level 97 98-107 mmol/L Carbon Dioxide Level 28 21-32 mmol/L Anion Gap 8.0 3-11 mmol/L Blood Urea Nitrogen 28 7-18 mg/dl Creatinine 1.28 0.60-1.40 mg/dl Est Creatinine Clear Calc Drug Dose 62.2 ml/min Estimated GFR () 77.3 Estimated GFR (Non- 66.7 BUN/Creatinine Ratio 21.7 10-20 Random Glucose 249 70-99 mg/dl Calcium Level 9.2 8.5-10.1 mg/dl Total Bilirubin 0.6 0.2-1 mg/dl Direct Bilirubin 0.1 0-0.2 mg/dl Aspartate Amino Transf (AST/SGOT) 19 15-37 U/L Alanine Aminotransferase (ALT/SGPT) 23 12-78 U/L Alkaline Phosphatase 116 45-117 U/L Total Protein 7.3 6.4-8.2 gm/dl Albumin 3.4 3.4-5.0 gm/dl Lipase 137 73-393 U/L Beta-Hydroxybutyric Acid 5.18 0.2-2.81 mg/dL Bedside Glucose 206 158 70-99 mg/dl Venous Blood pH 7.49 7.36-7.41 Venous Blood Partial Pressure CO2 34 38.0-50.0 mmHg Venous Blood Partial Pressure O2 74 mmHg Venous Blood HCO3 25 mmol/L Venous Blood Oxygen Saturation 94.5 % Venous Blood Base Excess 2.2 mEq/L Lactic Acid Level 1.0 0.4-2.0 mmol/L Test 05/05/17 00:45 Range/Units Bedside Glucose 208 70-99 mg/dl Impression Assessment and Plan Intractable nausea, vomiting, dehydration, mild DKA with elevated beta hydroxybutyric acid-- Patient will let to continue his own insulin pump and adjust for measured blood sugars. Diabetic diet as tolerated Normal saline with KCl 20 mEq 150 ML's per hour Repeat BMP and magnesium in the a.m. Zofran 4 mg IV every 6 hours when necessary Famotidine 20 mg IV every 12 hours Compazine suppository 25 mg every 6 hours when necessary Benadryl 25 mg IV every 4 hours when necessary. Reglan 10 mg IV every 6 hours when necessary. Dulcolax suppository now and daily when necessary for fecal load Hold Percocet Lorazepam 0.5 mg IV every 6 hours when necessary Level of Care Med/Surg Advanced Directives Existing Advance Directive: No Existing Living Will: No Existing Power of Cans Vacuum Tester: No Resuscitation Status FULL RESUSCITATION VTE Prophylaxis VTE Risk Assessment Done? Y/N: Yes Risk Level: Moderate Given or contraindicated: SCD's Social Service Consult None Apply
[2017-05-05] MEDS ORDERED: LORAZEPAM 2 MG/ML 1 ML VIAL IV PRN (03:00)
[2017-05-05 05:39] LABS: BASO % 0.2 %; BASO ABS # 0.02 K/uL (0-0.2); COMPLETE YES; EOS % 0.1 %; HEMATOCRIT 36.3 % (42-52); IG% 0.3 %; LYMPH % 12.8 %; LYMPH ABS # 1.56 K/uL (1.2-3.4); MEAN CELL VOLUME 88.5 fL (80-100); MEAN CORPUSCULAR HGB CONC 33.9 g/dl (32-36); MONO % 6.1 %; NEUT % 80.5 %; PLATELET COUNT 352 K/uL (130-400); WHITE BLOOD COUNT 12.15 K/uL (4.8-10.8)
[2017-05-05 06:03] LABS: BUN/CREATININE RATIO 23.2 (10-20); CALCIUM 8.3 mg/dl (8.5-10.1); CREATININE 1.04 mg/dl (0.60-1.40); MAGNESIUM 1.9 mg/dl (1.8-2.4); POTASSIUM 4.2 mmol/L (3.5-5.1)
[2017-05-05] MEDS ORDERED: INSULIN ASPART 100 UNITS/ML 3 ML PEN SC SCH (06:30)
--- NOTE | 2017-05-05 07:15 | DIAGNOSTIC IMAGING REPORT ---
PA CHEST WITH ABDOMINAL SERIES CLINICAL HISTORY: Vomiting. FINDINGS: A PA chest radiograph is compared to study dated 04/27/2017. Examination is degraded by patient rotation. The cardiomediastinal silhouette is unremarkable. The lungs and pleural spaces are clear. No pneumothorax is seen. The bony thorax is grossly intact. Supine and erect abdominal radiographs are correlated with abdominal CT dated 05/20/2016. There is a nonobstructed abdominal bowel gas pattern. No evidence of intraperitoneal free air is seen. There is an 8 mm nonobstructing right renal calculus. Phleboliths are observed in the pelvis. The lumbosacral spine and bony pelvis appear intact. IMPRESSION: 1. No active disease in the chest. 2. Nonobstructed abdominal bowel gas pattern. 3. Right-sided nephrolithiasis. Electronically signed by: Dev Burden M.D. 05/05/2017 7:13 AM Dictated Date/Time: 05/05/2017 7:12 AM
[2017-05-05 07:22] VITALS: BP 121/77; PULSE 91; TEMP 36.8; O2SAT 97
[2017-05-05 08:00] VITALS: O2SAT 97
[2017-05-05] MEDS ORDERED: FAMOTIDINE IV INJ 20 MG in SYRINGE 3 ML IV SCH (12:00)
[2017-05-05 12:14] VITALS: Ht 172.7 cm; Wt 59.5 kg
--- NOTE | 2017-05-05 12:46 | Discharge Instructions ---
Discharge Instructions Date of Service May 05, 2017. Admission Reason for Admission: Intractable Nausea/Vomiting Discharge Discharge Diagnosis / Problem: Intractable nausea/vomiting Discharge Goals Goal(s): Improve disease control, Diagnostic testing, Therapeutic intervention Activity Recommendations Activity Limitations: resume your previous activity Exercise/Sports Limitations: gradually increase as tolerated Shower/Bathe: no limitations Driving or Machine Use: no limitations . Instructions / Follow-Up Instructions / Follow-Up You were admitted with intractable nausea/vomiting which may have been due to a viral gastroenteritis. You were tolerating regular food by the time of discharge. Please follow up with your family doctor within 1-2 weeks after discharge. Try to drink plenty of fluids to stay hydrated. Current Hospital Diet Patient's current hospital diet: Diabetes Type 2 Diet, AHA Diet (Heart Healthy) Discharge Diet Recommended Diet: Diabetes Type 1 Diet Procedures Procedures Performed: Abdomen xray Pending Studies Studies pending at discharge: no Medical Emergencies . Who to Call and When: Medical Emergencies: If at any time you feel your situation is an emergency, please call 911 immediately. . Non-Emergent Contact Non-Emergency issues call your: Primary Care Provider Call Non-Emergent contact if: you have a fever, temperature is above 100.5, you have any medication questions you have return of your symptoms, fevers, or high or low blood sugars. . . "Provider Documentation" section prepared by Mireille Ponce. . VTE Core Measure Inpt VTE Proph given/why not?: SCD's
--- NOTE | 2017-05-05 12:52 | Discharge Summary ---
Discharge Summary Date of Service May 05, 2017. Discharge Summary Admission Date: May 04, 2017 at 23:31 Discharge Date: May 05, 2017 Discharge Disposition: Home Principal Diagnosis: Intractable nausea/vomiting Problems/Secondary Diagnoses: DMI Gastroparesis Chronic pain syndrome GERD Anxiety Immunizations: Have You Had Influenza Vaccine: Unknown History of Tetanus Vaccine?: Unknown History of Pneumococcal: Unknown History of Hepatitis B Vaccine: Unknown Procedures: Abdomen xray Consultations: None Medication Reconciliation Continued Medications: Bismuth Subsalicylate (Pepto-Bismol) 262 Mg/15 Ml [place] 15 ML PO UD PRN for GI Upset Insulin Human Lispro (Insulin Humalog Pump ) Pump 1 EA N/A UD, EA use carb rtio 1 unit/10 grams of carbs, use correction factor of 20 for high blood sugar (start at blood sugar of 150 or higher) new basal rate Lansoprazole (Prevacid) 30 Mg Capcr 30 MG PO DAILY, CAP Lorazepam (Lorazepam) 0.5 Mg Tab 0.25-0.5 MG PO TID PRN for Anxiety Metoclopramide (Reglan) 10 Mg Tab 10 MG PO Q6H PRN for Nausea, #15 TAB Ondansetron Hcl (Zofran) 4 Mg Tab 4 MG PO PRN for Nausea, TAB Oxycodone/Acetaminophen 5MG/325MG (Percocet 5MG/325MG) Tab 1-2 TABLETS PO Q4H PRN for Pain, TAB PAIN Prochlorperazine (Compazine Supp) 25 Mg Supp 25 MG ID for Nausea or Vomiting, SUPP Discharge Exam Pt feeling much better, tolerating regular diet. Labs within acceptable ranges. Denies fevers, headache, no CP or SOB, no N/V, no abd pain, no diarrhea, not lightheaded. Has been ambulating without difficulty. Ready for discharge. Review of Systems: Constitutional: No fever, No chills Eyes: No problem reported ENT: No problem reported Respiratory: No problem reported Cardiovascular: No problem reported Abdomen: No problem reported Musculoskeletal: No problem reported Genitourinary - Male: No problem reported Neurologic: No problem reported Psychiatric: No problem reported Endocrine: No problem reported Hematologic / Lymphatic: No problem reported Integumentary: No problem reported Physical Exam: General Appearance: no apparent distress, + thin Eyes: normal inspection, sclerae normal ENT: hearing grossly normal, + pertinent finding (pharynx clear, moist mucus membranes) Neck: trachea midline Respiratory/Chest: lungs clear, normal breath sounds, no respiratory distress, no accessory muscle use Cardiovascular: regular rate, rhythm, no edema, no gallop, no murmur Abdomen / GI: normal bowel sounds, non tender, soft, no organomegaly Extremities: normal inspection, no calf tenderness, normal capillary refill , no pedal edema Neurologic/Psychiatric: alert, normal mood/affect, oriented x 3 Skin: normal color, warm/dry, no rash Hospital Course Pt is a 46 yo male with a h/o DM type 1, gastroparesis, chronic pain syndrome, here with intractable nausea/vomiting x 1 day. He was given three different antiemetics and IVFs in the ER and was still unable to tolerate po. He was admitted overnight, given IVFs and had complete resolution of his symptoms by the next day. Abd xray was normal, glucose remained fairly normal, no DKA present. He was tolerating a regular diet by the next day and was stable for discharge to home. Because he had recently been around other people with similar symptoms, this is likely a viral gastroenteritis and is self-limiting. He was encouraged to continue po fluid intake and to f/u with PCP. Total Time Spent: Greater than 30 minutes This includes examination of the patient, discharge planning, medication reconciliation, and communication with other providers. Discharge Instructions Please refer to the electronic Patient Visit Report (Discharge Instructions) for additional information. Follow-Up PCP within 1-2 weeks
[2017-05-05 13:39] VITALS: BP 121/77; PULSE 91; TEMP 36.8; O2SAT 97
== END 2017-05-05 14:39 | disposition home or self-care (01) | DRG 391 ==
LOC: C.EDB 17:08 → C.4E 23:31 → ENRESERV 23:55
PROVIDERS: ADMIT Hospitalist; ATTEND Family Medicine
DX: R11.2 Nausea with vomiting, unspecified (principal); E10.10 Type 1 diabetes mellitus with ketoacidosis without coma; E86.0 Dehydration; E10.43 Type 1 diabetes mellitus with diabetic autonomic (poly)neuropathy; G89.4 Chronic pain syndrome; K21.9 Gastro-esophageal reflux disease without esophagitis; F41.9 Anxiety disorder, unspecified; Z96.41 Presence of insulin pump (external) (internal); Z83.3 Family history of diabetes mellitus

== ENCOUNTER 2017-08-01 21:22 | Inpatient (IN) | payer OTHER ==
[~2017-08-01] VITALS: Ht 172.7 cm; Wt 60.0 kg
[2017-08-01] MEDS ORDERED: ONDANSETRON INJ 2 MG/ML 2 ML VIAL IV STA ×2 (21:43→22:37)
[2017-08-01] MEDS ORDERED: SODIUM CHLORIDE 0.9% 1000ML 1,000 ML IV STA (21:43)
[2017-08-01 21:58] LABS: BASO % 0.3 %; BASO ABS # 0.03 K/uL (0-0.2); EOS % 0.3 %; EOS ABS # 0.03 K/uL (0-0.5); HEMOGLOBIN 13.8 g/dL (14.0-18.0); IG# 0.03 K/uL (0.00-0.02); LYMPH % 18.4 %; LYMPH ABS # 1.91 K/uL (1.2-3.4); MEAN CELL VOLUME 86.1 fL (80-100); MEAN CORPUSCULAR HEMOGLOBIN 30.5 pg (25-34); MEAN CORPUSCULAR HGB CONC 35.4 g/dl (32-36); MEAN PLATELET VOLUME 10.2 fL (7.4-10.4); MONO % 5.5 %; MONO ABS # 0.57 K/uL (0.11-0.59); NEUT % 75.2 %; NEUT ABS # 7.81 K/uL (1.4-6.5); PLATELET COUNT 354 K/uL (130-400); RED CELL DISTRIBUTION WIDTH CV 12.2 % (11.5-14.5); RED CELL DISTRIBUTION WIDTH SD 38.4 fL (36.4-46.3); WHITE BLOOD COUNT 10.38 K/uL (4.8-10.8)
[2017-08-01 22:16] LABS: CALCIUM 9.1 mg/dl (8.5-10.1); CREATININE 1.59 mg/dl (0.60-1.40); POTASSIUM 3.8 mmol/L (3.5-5.1)
[2017-08-01] MEDS ORDERED: SODIUM CHLORIDE 0.9% 500ML 500 ML IV STA (22:37)
[2017-08-01] MEDS ORDERED: SODIUM CHLORIDE 0.9% 1000ML 500 ML IV STA (22:37)
--- NOTE | 2017-08-01 22:44 | EMERGENCY ROOM VISIT NOTE ---
History Report prepared by Moni: Brynn Olmedo Under the Supervision of: Dr. Clyde Vaz M.D. First contact with patient: 21:34 Chief Complaint: VOMITING Stated Complaint: VOMITING History of Present Illness The patient is a 46 year old male who presents to the Emergency Room with complaints of constant vomiting beginning two hours ago. The patient denies eating any "strange" foods or drinking any alcohol. The patient has a history of diabetes and gastroparesis. The patient states his insulin pump is turned on. He denies any recent flare ups of his gastroparesis. He denies any blood in his vomit. Source of History: patient Onset: two hours ago Position: other (generalized) Quality: other (vomiting) Timing: constant Associated Symptoms: + vomiting Review of Systems See HPI for pertinent positives and negatives. A total of ten systems were reviewed and were otherwise negative. Past Medical & Surgical Medical Problems: (1) Abdominal pain (2) Acute appendicitis (3) Diabetes (4) DKA (diabetic ketoacidoses) (5) Gastroparesis (6) Hyperglycemia due to type 1 diabetes mellitus (7) Nausea & vomiting Family History Diabetes mellitus Social History Smoking Status: Former Smoker Alcohol Use: none Drug Use: none Marital Status: Housing Status: lives with family Occupation Status: employed Current/Historical Medications Scheduled Insulin Human Lispro (Insulin Humalog Pump ), 1 EA N/A UD Lansoprazole (Prevacid), 30 MG PO DAILY Scheduled PRN Bismuth Subsalicylate (Pepto-Bismol), 15 ML PO UD PRN for GI Upset Lorazepam (Lorazepam), 0.25-0.5 MG PO TID PRN for Anxiety Metoclopramide (Reglan), 10 MG PO Q6H PRN for Nausea Ondansetron Hcl (Zofran), 4 MG PO for Nausea Miscellaneous Medications Prochlorperazine (Compazine Supp), 25 MG [place] Allergies Coded Allergies: Shellfish (Verified Allergy, Severe, anaphylaxis, 08/01/17) Promethazine (Verified Allergy, Intermediate, itchy/hives, 08/01/17) Physical Exam Vital Signs Date Time Temp Pulse Resp B/P (MAP) Pulse Ox O2 Delivery O2 Flow Rate FiO2 08/01/17 21:54 93 22 150/92 100 08/01/17 21:30 36.5 79 18 114/68 97 Room Air Physical Exam Physical Exam GENERAL: He is oriented to person, place, and time. He appears well-developed and well-nourished. He does not appear distressed. ____ HENT: Exam performed. Head: Normocephalic and atraumatic. Right Ear: External ear normal. No mastoid tenderness. Left Ear: External ear normal. No mastoid tenderness. Mouth/Throat: The oropharynx is clear and moist. No trismus in the jaw. No dental abscesses or uvula swelling. No oropharyngeal exudate or tonsillar abscesses. ____ EYES: Conjunctivae and EOM are normal. Pupils are equal, round, and reactive to light. Right eye exhibits no discharge. Left eye exhibits no discharge. No scleral icterus. ____ NECK: Normal range of motion. Neck supple. No JVD present. No spinous process tenderness present. No carotid bruit present. No rigidity. No tracheal deviation and normal range of motion present. No Brudzinski's sign and no Kernig 's sign noted. ____ CV: Normal rate, regular rhythm, normal heart sounds and intact distal pulses. There is no peripheral edema. Palpable radial pulses bue. ____ PULM/CHEST: Effort normal and breath sounds normal. No respiratory distress. No stridor. He has no wheezes. He has no rales. Chest Wall: He exhibits no tenderness. ____ ABD: Insulin pump attached. The abdomen is soft. Bowel sounds are normal. He has no distension. No mass is present. There is no tenderness. There is no rebound, no guarding, no Prescott's sign and no tenderness at McBurney's point. Rovsig negative MUSC/SKEL: Normal range of motion. There is no peripheral edema, tenderness or deformity. LYMPH: No cervical adenopathy. ____ NEURO: He is alert and oriented to person, place, and time. He has normal strength. No cranial nerve deficit or sensory deficit. Coordination and gait normal. GCS eye subscore is 4. GCS verbal subscore is 5. GCS motor subscore is 6. Cerebellar tests wnl. ____ SKIN: Skin is warm and dry. He is not diaphoretic. ____ PSYCH: He has a normal mood and affect. His behavior is normal. Judgment and thought content normal. ____ Medical Decision & Procedures ER Provider Diagnostic Interpretation: 0023: X-ray interpreted by me show no air-fluid levels concerning for SBO, no free air under diaphragm. Laboratory Results 08/01/17 21:45 Red Blood Count 4.53, Mean Corpuscular Volume 86.1, Mean Corpuscular Hemoglobin 30.5, Mean Corpuscular Hemoglobin Concent 35.4, Mean Platelet Volume 10.2, Neutrophils (%) (Auto) 75.2, Lymphocytes (%) (Auto) 18.4, Monocytes (%) (Auto) 5.5, Eosinophils (%) (Auto) 0.3, Basophils (%) (Auto) 0.3, Neutrophils # (Auto) 7.81, Lymphocytes # (Auto) 1.91, Monocytes # (Auto) 0.57, Eosinophils # (Auto) 0.03, Basophils # (Auto) 0.03 08/01/17 21:45 Test 08/01/17 21:43 08/01/17 21:45 08/02/17 00:11 08/02/17 00:16 Bedside Glucose 142 mg/dl (70-99) White Blood Count 10.38 K/uL (4.8-10.8) Red Blood Count 4.53 M/uL (4.7-6.1) Hemoglobin 13.8 g/dL (14.0-18.0) Hematocrit 39.0 % (42-52) Mean Corpuscular Volume 86.1 fL (80-100) Mean Corpuscular Hemoglobin 30.5 pg (25-34) Mean Corpuscular Hemoglobin Concent 35.4 g/dl (32-36) Platelet Count 354 K/uL (130-400) Mean Platelet Volume 10.2 fL (7.4-10.4) Neutrophils (%) (Auto) 75.2 % Lymphocytes (%) (Auto) 18.4 % Monocytes (%) (Auto) 5.5 % Eosinophils (%) (Auto) 0.3 % Basophils (%) (Auto) 0.3 % Neutrophils # (Auto) 7.81 K/uL (1.4-6.5) Lymphocytes # (Auto) 1.91 K/uL (1.2-3.4) Monocytes # (Auto) 0.57 K/uL (0.11-0.59) Eosinophils # (Auto) 0.03 K/uL (0-0.5) Basophils # (Auto) 0.03 K/uL (0-0.2) RDW Standard Deviation 38.4 fL (36.4-46.3) RDW Coefficient of Variation 12.2 % (11.5-14.5) Immature Granulocyte % (Auto) 0.3 % Immature Granulocyte # (Auto) 0.03 K/uL (0.00-0.02) Anion Gap 12.0 mmol/L (3-11) Est Creatinine Clear Calc Drug Dose 49.3 ml/min Estimated GFR () 59.5 Estimated GFR (Non- 51.3 BUN/Creatinine Ratio 14.3 (10-20) Calcium Level 9.1 mg/dl (8.5-10.1) Test 08/02/17 00:21 Laboratory results reviewed by me Medications Administered Medications (Trade) Dose Ordered Sig/Guerrero Route Start Time Stop Time Status Last Admin Dose Admin Sodium Chloride 1,000 ml @ 999 mls/hr Q1H1M STAT IV 08/01/17 21:43 08/01/17 22:43 DC 08/01/17 21:53 999 MLS/HR Ondansetron HCl (Zofran Inj) 4 mg NOW STAT IV 08/01/17 21:43 08/01/17 21:44 DC 08/01/17 21:52 4 MG Sodium Chloride 500 ml @ 999 mls/hr Q31M STAT IV 08/01/17 22:37 08/01/17 23:07 DC 08/01/17 22:42 999 MLS/HR Sodium Chloride 500 ml @ 125 mls/hr Q4H STAT IV 08/01/17 22:37 08/02/17 02:36 08/01/17 22:37 125 MLS/HR Ondansetron HCl (Zofran Inj) 4 mg NOW STAT IV 08/01/17 22:37 08/01/17 22:39 DC 08/01/17 22:49 4 MG Ondansetron HCl (Zofran Inj) 4 mg NOW STAT IV 08/02/17 00:03 08/02/17 00:04 DC 08/02/17 00:03 4 MG ED Course 2140: The patient was evaluated in room C4. A complete history and physical exam was performed. 2142: Ordered Zofran Inj 4 mg IV, Sodium Chloride 1000 ml @ 999 mls/hr IV. 5: Vitals stable. Patient continues to have nausea and vomiting will continue fluid bolus antiemetic and obtain X-ray. 2236: Ordered Zofran Inj 4 mg IV, Sodium Chloride 500 ml @ 125 mls/hr IV, Sodium Chloride 500 ml @ 999 mls/hr IV. 2359:Vitals stable. Labs within normal limits. X-ray interpreted by me show no air-fluid levels concerning for SBO, no free air under diaphragm. Patient continues to have vomiting despite multiple doses of Zofran. Will admit to the hospitalist service. 0003: Ordered Zofran Inj 4 mg IV. 0020: Discussed the patient's case with Dr. Callejas. The patient will be evaluated for further treatment and disposition. Medical Decision Vitals stable. Labs within normal limits. X-ray interpreted by me show no air- fluid levels concerning for SBO, no free air under diaphragm. Patient continues to have vomiting despite multiple doses of Zofran. Will admit to the hospitalist service. Medication Reconcilliation Current Medication List: was personally reviewed by me Blood Pressure Screening Patient's blood pressure: Normal blood pressure Consults Time Called: 13 Consulting Physician: Dr. Callejas Returned Call: 19 Discussed the patient's case with Dr. Callejas. The patient will be evaluated for further treatment and disposition. Impression Primary Impression: Intractable nausea and vomiting Scribe Attestation The scribe's documentation has been prepared under my direction and personally reviewed by me in its entirety. I confirm that the note above accurately reflects all work, treatment, procedures, and medical decision making performed by me. The chart was completed utilizing [employer] Speech voice recognition software. Grammatical errors, random word insertions, pronoun errors, and incomplete sentences are an occasional consequence of this system due to software limitations, ambient noise, and hardware issues. Any formal questions or concerns about the content, text, or information contained within the body of this dictation should be directly addressed to the physician for clarification. Departure Information Dispostion Being Evaluated By Hospitalist Referrals Andrew Li MD (PCP) Patient Instructions My [facility]
[2017-08-02] VITALS (7 sets, daily range): BP systolic 138–176; BP diastolic 75–93; PULSE 99–102; TEMP 36.6–37.6; O2SAT 97–98; BMI 20.1
[2017-08-02] MEDS ORDERED: ONDANSETRON INJ 2 MG/ML 2 ML VIAL IV STA (00:03)
[2017-08-02] MEDS ORDERED: PROCHLORPERAZINE 5 MG/ML 2 ML VIAL IV STA (00:37)
[2017-08-02] MEDS ORDERED: METOCLOPRAMIDE HCL INJ 5 MG/ML 2 ML VIAL IM STA (00:40)
[2017-08-02] MEDS ORDERED: GLUCOSE 10 TABS/TUBE PO PRN ×2 (00:45→18:00)
[2017-08-02] MEDS ORDERED: DEXTROSE 50% 50 ML SYR IV PRN ×2 (00:45→18:00)
[2017-08-02] MEDS ORDERED: GLUCAGON FOR INJ 1 MG VIAL SQ PRN ×2 (00:45→18:00)
--- NOTE | 2017-08-02 00:52 | DIAGNOSTIC IMAGING REPORT ---
AP CHEST WITH ABDOMINAL SERIES CLINICAL HISTORY: Vomiting. FINDINGS: 2 AP chest radiographs are compared to study dated 05/04/2017. The examination is degraded by patient rotation. The cardiomediastinal silhouette is unremarkable. The lungs and pleural spaces are clear. No pneumothorax is seen. The bony thorax is grossly intact. Supine and decubitus abdominal radiographs are compared to study dated 05/04/2017. There is a nonobstructed abdominal bowel gas pattern. No evidence of intraperitoneal free air is seen. There is an 8 mm nonobstructing right renal calculus. Phleboliths are observed in the pelvis. The lumbosacral spine and bony pelvis appear intact. IMPRESSION: 1. No active disease in the chest. 2. Nonobstructed abdominal bowel gas pattern. 3. Right-sided nephrolithiasis. Electronically signed by: Dev Burden M.D. 08/02/2017 12:51 AM Dictated Date/Time: 08/02/2017 12:49 AM
[2017-08-02] MEDS ORDERED: IV FLUIDS COMPLETED PRN (01:00)
[2017-08-02 01:03] LABS: ALBUMIN 3.6 gm/dl (3.4-5.0); TOTAL PROTEIN 7.4 gm/dl (6.4-8.2)
[2017-08-02] MEDS ORDERED: METOCLOPRAMIDE HCL INJ 5 MG/ML 2 ML VIAL IV STA (01:03)
--- NOTE | 2017-08-02 01:35 | History and Physical ---
History & Physical Date & Time of Service: Aug 02, 2017 at 01:22 Chief Complaint: Vomiting Primary Care Physician: Andrew Li MD History of Present Illness Source: patient, family Patient is a 46 year old male with a past medical history of type 1 diabetes that presents with uncontrollable nausea and vomiting. The patient has been feeling unwell since Thursday, complaining of chills and sweats with no documented fevers. The patients daughter was diagnosed with flu, although the patients Flu swab was negative. Despite being a high risk patient the patient was not placed on flu prophylaxis. The patient began having nausea and vomiting this evening that was uncontrollable despite home mediations including zofran and reglan. The patient denies any abdominal pain, diarrhea, chest pain, shortness of breath, or any other acute complaints. Family History Diabetes mellitus Social History Smoking Status: Former Smoker Smokeless Tobacco Use: No Alcohol Use: none Drug Use: none Marital Status: Housing status: lives with family Occupational Status: employed Immunizations History of Influenza Vaccine: Unknown History of Tetanus Vaccine?: Unknown History of Pneumococcal: Unknown History of Hepatitis B Vaccine: Unknown Multi-Drug Resistant Organisms History of MDRO: No Allergies Coded Allergies: Shellfish (Verified Allergy, Severe, anaphylaxis, 08/01/17) Promethazine (Verified Allergy, Intermediate, itchy/hives, 08/01/17) Home Medications Scheduled Insulin Human Lispro (Insulin Humalog Pump ), 1 EA N/A UD Lansoprazole (Prevacid), 30 MG PO DAILY Scheduled PRN Bismuth Subsalicylate (Pepto-Bismol), 15 ML PO UD PRN for GI Upset Lorazepam (Lorazepam), 0.25-0.5 MG PO TID PRN for Anxiety Metoclopramide (Reglan), 10 MG PO Q6H PRN for Nausea Ondansetron Hcl (Zofran), 4 MG PO for Nausea Miscellaneous Medications Prochlorperazine (Compazine Supp), 25 MG [place] Review of Systems Constitutional: + fatigue, No fever, No chills, No sweats Respiratory: No cough, No sputum, No wheezing, No shortness of breath, No dyspnea on exertion, No dyspnea at rest Cardiovascular: No chest pain, No orthopnea, No palpitations Abdomen: + nausea, + vomiting, + constipation, No pain, No diarrhea Musculoskeletal: No muscle pain Endocrine: No fatigue, No excessive thirst, No excessive urination Physical Exam Vital Signs Date Time Temp Pulse Resp B/P (MAP) Pulse Ox O2 Delivery O2 Flow Rate FiO2 08/01/17 23:50 81 22 143/82 99 Room Air 08/01/17 21:54 93 22 150/92 100 08/01/17 21:30 36.5 79 18 114/68 97 Room Air General Appearance: + moderate distress (dry heaving and vomiting) Head: normocephalic, atraumatic Respiratory/Chest: chest non-tender, lungs clear, normal breath sounds, no respiratory distress, no accessory muscle use Cardiovascular: regular rate, rhythm, no edema, no murmur Abdomen/GI: normal bowel sounds, non tender, soft Extremities/Musculoskelatal: normal inspection, no calf tenderness, no pedal edema Diagnostics Laboratory Results Results Past 24 Hours Test 08/01/17 21:43 08/01/17 21:45 08/02/17 01:17 Range/Units Bedside Glucose 142 70-99 mg/dl White Blood Count 10.38 4.8-10.8 K/uL Red Blood Count 4.53 4.7-6.1 M/uL Hemoglobin 13.8 14.0-18.0 g/dL Hematocrit 39.0 42-52 % Mean Corpuscular Volume 86.1 80-100 fL Mean Corpuscular Hemoglobin 30.5 25-34 pg Mean Corpuscular Hemoglobin Concent 35.4 32-36 g/dl Platelet Count 354 130-400 K/uL Mean Platelet Volume 10.2 7.4-10.4 fL Neutrophils (%) (Auto) 75.2 % Lymphocytes (%) (Auto) 18.4 % Monocytes (%) (Auto) 5.5 % Eosinophils (%) (Auto) 0.3 % Basophils (%) (Auto) 0.3 % Neutrophils # (Auto) 7.81 1.4-6.5 K/uL Lymphocytes # (Auto) 1.91 1.2-3.4 K/uL Monocytes # (Auto) 0.57 0.11-0.59 K/uL Eosinophils # (Auto) 0.03 0-0.5 K/uL Basophils # (Auto) 0.03 0-0.2 K/uL RDW Standard Deviation 38.4 36.4-46.3 fL RDW Coefficient of Variation 12.2 11.5-14.5 % Immature Granulocyte % (Auto) 0.3 % Immature Granulocyte # (Auto) 0.03 0.00-0.02 K/uL Sodium Level 135 136-145 mmol/L Potassium Level 3.8 3.5-5.1 mmol/L Chloride Level 98 98-107 mmol/L Carbon Dioxide Level 26 21-32 mmol/L Anion Gap 12.0 3-11 mmol/L Blood Urea Nitrogen 23 7-18 mg/dl Creatinine 1.59 0.60-1.40 mg/dl Est Creatinine Clear Calc Drug Dose 49.3 ml/min Estimated GFR () 59.5 Estimated GFR (Non- 51.3 BUN/Creatinine Ratio 14.3 10-20 Random Glucose 125 70-99 mg/dl Calcium Level 9.1 8.5-10.1 mg/dl Total Bilirubin 0.6 0.2-1 mg/dl Direct Bilirubin 0.1 0-0.2 mg/dl Aspartate Amino Transf (AST/SGOT) 18 15-37 U/L Alanine Aminotransferase (ALT/SGPT) 20 12-78 U/L Alkaline Phosphatase 92 45-117 U/L Total Protein 7.4 6.4-8.2 gm/dl Albumin 3.6 3.4-5.0 gm/dl Lipase 72 73-393 U/L Beta-Hydroxybutyric Acid 31.24 0.2-2.81 mg/dL Impression Assessment and Plan Intractable Vomiting - Compazine 10mg IV q6h PRN - Reglan 10mg IV q6h PRN - Zofran 4mg q6h PRN - AVOID PHENERGAN DUE TO ALLERGY - NS @ 150mls/hr - Repeat labs in morning - NPO - Lipase wnl Influenza - Tamiflu 75mg PO BID - Did not repeat Flu swab due to presumed illness, symptoms, h/o contacts and bring high risk Type 1 Diabetes - Continue use of Insulin pump - BSG q4h - Hypoglycemic precautions - Elevated Beta-Hydroxybutyrate and Anion Gap 2/2 volume contraction and hyperglycemia KRYSTAL - Creatinine 1.59 - Most likely 2/2 acute illness/ dehydration - IV fluids - Daily BMP DVT - SCDs Code Status - Full Resuscitation Attending addendum: I have physically seen this patient, have supervised the medical residents activities, and agree with the H&P unless as otherwise noted. Assessment and Plan: Influenza/intractable nausea vomiting-- Tamiflu 75 mg p.o. twice daily. NSS 150 mils per hour. Zofran 4 mg IV every 6 hours as needed, repeat in 30 minutes if needed. Reglan IV and Compazine IV as backup to be used as needed Diabetes mellitus-- Patient feels comfortable continuing to use his own insulin pump for coverage. Acute kidney injury-- Creatinine 1.59 upon admission NSS 150 mg/h. Daily BMP and magnesium level Level of Care Med/Surg Advanced Directives Existing Advance Directive: No Existing Living Will: No Existing Power of Calciner Operator Helper: No Resuscitation Status FULL RESUSCITATION VTE Prophylaxis VTE Risk Assessment Done? Y/N: Yes Risk Level: Moderate Given or contraindicated: SCD's Social Service Consult None Apply Resident Tracking Resident Involvement: Resident Care Provided Care Provided: Adult Hospital Medicine
[2017-08-02] MEDS ORDERED: INSULIN HUMAN LISPRO (humaLOG) 100 UNITS/ML VIAL SC PRN (02:30)
[2017-08-02] MEDS: SODIUM CHLORIDE 0.9% 1000ML 1,000 ML IV SCH ×3 (02:43→17:03)
[2017-08-02] MEDS ORDERED: PNEUMOCOCCAL ADMINISTRATION CHARGE ONE (03:45)
[2017-08-02] MEDS ORDERED: PNEUMOCOCCAL POLYSACCHARIDES 25 MCG/0.5 ML VIAL/SYR IM. ONE (03:45)
[2017-08-02] MEDS ORDERED: PROCHLORPERAZINE 5 MG/ML 2 ML VIAL IV PRN (06:30)
[2017-08-02] MEDS: ONDANSETRON INJ 2 MG/ML 2 ML VIAL IV PRN (08:04)
[2017-08-02] MEDS: OSELTAMIVIR PHOSPHATE SUSP 30 MG/5 ML UDP PO SCH ×2 (08:11→20:40)
[2017-08-02] MEDS: METOCLOPRAMIDE HCL INJ 5 MG/ML 2 ML VIAL IV PRN (09:05)
[2017-08-02] MEDS: PANTOprazole INJ 40 MG in SYRINGE 0 ML IV SCH (11:37)
[2017-08-02] MEDS ORDERED: DiphenhydrAMINE INJ 25 MG in SYRINGE 0 ML IV STA (12:42)
[2017-08-02] MEDS ORDERED: DiphenhydrAMINE HCL 50 MG/ML VIAL IV ONE (12:45)
[2017-08-02 13:13] LABS: CALCIUM 7.9 mg/dl (8.5-10.1); CREATININE 1.28 mg/dl (0.60-1.40); POTASSIUM 3.8 mmol/L (3.5-5.1)
[2017-08-02] MEDS: GLUCOSE 40% GEL 15 GM TUBE PO PRN ×2 (16:59→17:36)
[2017-08-02] MEDS ORDERED: NURSING VERBAL MED ORDER ONE (17:48)
[2017-08-02] MEDS ORDERED: GLUCOSE 40% GEL 15 GM TUBE PO PRN (18:00)
--- NOTE | 2017-08-02 18:05 | Family Medicine Progress Note ---
Progress Note Date of Service Aug 02, 2017. Subjective Pt evaluation today including: conversation w/ patient, physical exam, chart review, lab review, review of inpatient medication list Pain: none reported PO Intake: NPO Voiding: no voiding problems Patient continues to feel nauseated despite 3 anti-nausea meds on board. Retching in room during our visit. Constitutional: + chills, + sweats, No fever, No weight loss, No weakness, No fatigue, No problem reported Abdomen: + nausea, + vomiting All Other Systems: Reviewed and Negative Medications Current Inpatient Medications Medications (Trade) Dose Ordered Sig/Guerrero Route Start Time Stop Time Status Last Admin Dose Admin Glucose (Glucose 40% Gel) 15-30 GRAMS 15 GRAMS... UD PRN PO 08/02/17 00:45 09/01/17 00:44 08/02/17 17:36 15 GM Glucose (Glucose Chew Tab) 4-8 Tablets 4 Tabl... UD PRN PO 08/02/17 00:45 09/01/17 00:44 Dextrose (Dextrose 50% 50ML Syringe) 25-50ML OF 50% DW IV FOR... UD PRN IV 08/02/17 00:45 09/01/17 00:44 08/02/17 17:57 25 ML Glucagon (Glucagon Inj) 1 mg UD PRN SQ 08/02/17 00:45 09/01/17 00:44 Pantoprazole Sodium 40 mg/ Syringe 10 ml @ 5 mls/min DAILY@11 IV 08/02/17 11:00 09/01/17 10:59 08/02/17 11:37 5 MLS/MIN Metoclopramide HCl (Reglan Inj) 10 mg Q6H PRN IV 08/02/17 06:45 09/01/17 06:44 08/02/17 09:05 10 MG Ondansetron HCl (Zofran Inj) 4 mg Q6H PRN IV 08/02/17 06:00 09/01/17 05:59 08/02/17 08:04 4 MG Prochlorperazine Edisylate (Compazine Inj) 10 mg NOW PRN IV 08/02/17 06:30 09/01/17 06:29 Miscellaneous (Iv Fluids Completed) 1 ea PRN PRN N/A 08/02/17 01:00 08/02/18 00:59 Oseltamivir Phosphate (Tamiflu Susp) 30 mg BID PO 08/02/17 09:00 08/07/17 08:59 08/02/17 20:40 30 MG Insulin Human Lispro (HumaLOG INSULIN PUMP) 1 ea ACHS N/A 08/02/17 06:30 09/01/17 06:29 Future Hold 08/02/17 17:04 1 EA Insulin Human Lispro (humaLOG) SLIDING SCALE PRN PRN SC 08/02/17 02:30 09/01/17 02:29 Future Hold Insulin Aspart (novoLOG ASPART) SLIDING SCALE If C... ACHS SC 08/02/17 21:00 09/01/17 20:59 08/02/17 20:48 3 UNITS Potassium Chloride/Dextrose/ Sod Cl 1,000 ml @ 125 mls/hr Q8H IV 08/02/17 19:00 09/01/17 18:59 08/02/17 19:17 125 MLS/HR Objective Vital Signs Date Time Temp Pulse Resp B/P (MAP) Pulse Ox O2 Delivery O2 Flow Rate FiO2 08/02/17 19:00 98 Room Air 08/02/17 16:00 98 Room Air 08/02/17 15:12 36.8 102 18 138/75 (96) 98 Room Air 08/02/17 08:00 98 Room Air 08/02/17 07:06 36.6 99 16 161/88 (112) 98 08/02/17 02:10 36.6 100 18 176/93 Room Air 08/02/17 01:43 86 22 156/86 100 08/01/17 23:50 81 22 143/82 99 Room Air 08/01/17 21:54 93 22 150/92 100 Physical Exam General Appearance: WD/WN, + mild distress (Patient curled up, continuously retching during our conversation) Eyes: normal inspection, PERRL, EOMI, sclerae normal ENT: hearing grossly normal Neck: no carotid bruits, trachea midline Respiratory/Chest: chest non-tender, lungs clear, normal breath sounds, no respiratory distress, no accessory muscle use Cardiovascular: regular rate, rhythm, no edema, no gallop, no murmur Abdomen: normal bowel sounds, non tender, soft Extremities: non-tender, normal inspection, no pedal edema Neurologic/Psychiatric: videographer II-XII nml as tested, no motor/sensory deficits, alert, oriented x 3 Skin: normal color, warm/dry Laboratory Results Last Resulted 08/01/17 21:45 Red Blood Count 4.53, Mean Corpuscular Volume 86.1, Mean Corpuscular Hemoglobin 30.5, Mean Corpuscular Hemoglobin Concent 35.4, Mean Platelet Volume 10.2, Neutrophils (%) (Auto) 75.2, Lymphocytes (%) (Auto) 18.4, Monocytes (%) (Auto) 5.5, Eosinophils (%) (Auto) 0.3, Basophils (%) (Auto) 0.3, Neutrophils # (Auto) 7.81, Lymphocytes # (Auto) 1.91, Monocytes # (Auto) 0.57, Eosinophils # (Auto) 0.03, Basophils # (Auto) 0.03 Last Resulted 08/02/17 12:44 Assessment and Plan 46yo M with PMH of T1DM and gastroparesis who presented with uncontrollable nausea and vomiting. The patient has been feeling unwell for 6 days, complaining of chills and sweats with no documented fevers. The patient's daughter was diagnosed with flu, although the patients Flu swab was negative. He began having nausea and vomiting on 08/01 that was uncontrollable despite home mediation use including zofran and reglan Intractable Vomiting - Likely related to viral illness triggering gastroparesis flare - Compazine 10mg IV q6h PRN - Reglan 10mg IV q6h PRN - Zofran 4mg q6h PRN - one dose of benadryl given today - AVOID PHENERGAN DUE TO ALLERGY - NS @ 150mls/hr - Repeat labs show downward trend of nausea/vomiting - NPO except ice chips/sips - Lipase wnl - Patient previously seen by [facility] for gastroparesis and was recommended to transfer to clinic at [place]; Case mgmt assistance to re- establish Influenza - Tamiflu 30mg PO BID, renally dosed - Did not repeat Flu swab, treated due to presumed illness, symptoms, h/o contacts and bring high risk Type 1 Diabetes - Continue use of Insulin pump, discontinued later in day due to NPO status and subsequent hypoglycemia. - Started on D50 drip and ISS - BSG q4h - Hypoglycemic precautions - Elevated Beta-Hydroxybutyrate and Anion Gap 2/2 volume contraction and hyperglycemia KRYSTAL - Creatinine 1.59 - Most likely 2/2 acute illness/ dehydration - IV fluids - Daily BMP - Repeat BMP trended down to 1.27 DVT - SCDs Code Status - Full Resuscitation Resident Physician Supervision Note: I interviewed and examined the patient. Discussed with Dr. Munoz and agree with findings and plan as documented in the note. Any exceptions or clarifications are listed here: None Documented By: Obie Argueta ongoign nausea/vomiting jaquilas noted laying on side emesis bag nearby vomits even during interview intractable nausea/vomiting -suspect flare of gastroparesis likely flu related -continue hydration and symptomatic care -he notes was working on motility clinic referral (he believes was affiliated with [facility] - had been seen at [facility] and they referred up to [facility]) DM1 -supportive care -add D5 to fluids to provide buffer against lows Resident Tracking Resident Involvement: Resident Care Provided Care Provided: Adult Hospital Medicine
[2017-08-02] MEDS: D5W AND 1/2NSS + 20MEQ KCL 1,000 ML IV SCH (19:17)
[2017-08-02] MEDS ORDERED: INSULIN ASPART 100 UNITS/ML 3 ML PEN SC SCH (21:00)
[2017-08-02] MEDS ORDERED: ACETAMINOPHEN 325 MG TAB PO PRN (22:30)
[2017-08-03] VITALS: O2SAT 98
[2017-08-03] MEDS: ONDANSETRON INJ 2 MG/ML 2 ML VIAL IV PRN ×4 (01:29→21:30)
[2017-08-03] MEDS: D5W AND 1/2NSS + 20MEQ KCL 1,000 ML IV SCH (03:15)
[2017-08-03] MEDS ORDERED: DKA GOAL RANGE 150-250 mg/dl 1 EA ONE (05:00)
[2017-08-03] MEDS ORDERED: MODERATE STRESS LEVEL ONE (05:00)
[2017-08-03] MEDS ORDERED: INSULIN IV INFUSION PROTOCOL SCH (05:04)
[2017-08-03] MEDS ORDERED: INSULIN HUMAN REGULAR IV BOLUS 1.5 UNIT in SYRINGE 0 ML IV SCH (05:30)
[2017-08-03] MEDS ORDERED: SODIUM CHLOR 0.45% + 20MEQ KCL 1,000 ML IV SCH (05:45)
[2017-08-03] MEDS: INSULIN REGULAR 250 UNITS in SODIUM CHLORIDE 0.9% 250ML 250 ML IV SCH ×6 (05:45→10:53)
[2017-08-03 07:17] LABS: HEMOGLOBIN A1C 10.4 % (4.5-5.6)
[2017-08-03 07:36] VITALS: BP 172/92; PULSE 100; TEMP 36.5; O2SAT 97
[2017-08-03 07:36] LABS: HEMATOCRIT 33.8 % (42-52); HEMOGLOBIN 11.5 g/dL (14.0-18.0); MEAN CELL VOLUME 89.9 fL (80-100); MEAN CORPUSCULAR HEMOGLOBIN 30.6 pg (25-34); MEAN PLATELET VOLUME 9.9 fL (7.4-10.4); PLATELET COUNT 323 K/uL (130-400); RED CELL DISTRIBUTION WIDTH CV 12.3 % (11.5-14.5); RED CELL DISTRIBUTION WIDTH SD 40.2 fL (36.4-46.3); WHITE BLOOD COUNT 15.87 K/uL (4.8-10.8)
[2017-08-03 08:00] VITALS: O2SAT 97
[2017-08-03 08:05] LABS: CALCIUM 7.6 mg/dl (8.5-10.1); CREATININE 1.49 mg/dl (0.60-1.40); POTASSIUM 3.9 mmol/L (3.5-5.1)
[2017-08-03] MEDS: INSULIN ASPART 100 UNITS/ML 3 ML PEN SC SCH ×2 (09:34→13:00)
[2017-08-03] MEDS: OSELTAMIVIR PHOSPHATE SUSP 30 MG/5 ML UDP PO SCH ×2 (09:34→21:51)
[2017-08-03] MEDS: NSS + 20MEQ KCL 1000ML 1,000 ML IV SCH ×2 (10:28→17:22)
[2017-08-03] MEDS: METOCLOPRAMIDE HCL INJ 5 MG/ML 2 ML VIAL IV PRN ×2 (10:32→23:20)
[2017-08-03] MEDS: PANTOprazole INJ 40 MG in SYRINGE 0 ML IV SCH (10:32)
[2017-08-03 11:59] LABS: CALCIUM 7.3 mg/dl (8.5-10.1); CREATININE 1.42 mg/dl (0.60-1.40); POTASSIUM 3.8 mmol/L (3.5-5.1)
[2017-08-03] MEDS ORDERED: NURSING VERBAL MED ORDER ONE ×2 (13:00→16:00)
[2017-08-03 14:36] VITALS: BP 190/91; PULSE 90; TEMP 36.7; O2SAT 98
[2017-08-03] MEDS ORDERED: LORAZEPAM INJ 1 MG in SYRINGE 0.5 ML IV SCH (15:00)
[2017-08-03 15:05] VITALS: BMI 20.1
[2017-08-03] MEDS ORDERED: PROCHLORPERAZINE INJ 10 MG in SYRINGE 8 ML IV ONE (15:30)
[2017-08-03 16:00] VITALS: O2SAT 95
[2017-08-03 16:26] VITALS: BP 143/84; PULSE 89; TEMP 36.8; O2SAT 95
--- NOTE | 2017-08-03 18:20 | Family Medicine Progress Note ---
Progress Note Date of Service Aug 03, 2017. Subjective Pt is retching during our conversation. Emesis is clear, minimal. Pt is nauseated, but denies abdominal pain, constipation. Is passing gas without difficulty. Denies difficulty breathing or chest pain or abdominal pain. Is NPO. ROS See HPI for pertinent positives and negatives. Objective Vital Signs Last Vital Signs Documentation Date Time Temp Pulse Resp B/P (MAP) Pulse Ox O2 Delivery O2 Flow Rate FiO2 08/03/17 16:26 36.8 89 18 143/84 (103) 95 Room Air Physical Exam Notes: GENERAL: Awake, alert, in moderate distress, retching intermittently. HENT: Normocephalic, atraumatic. EYES: Normal conjunctiva. Sclera non-icteric. RESPIRATORY: Clear to auscultation. CARDIAC: Regular rate, normal rhythm. Extremities warm and well perfused. Pulses equal. ABDOMEN: Soft, non-distended. No tenderness to palpation. No rebound or guarding. No masses. LOWER EXTREMITIES: Calves are equal size bilaterally and non-tender. No edema. No discoloration. NEURO: No motor deficits noted. SKIN: No rash or jaundice noted. Laboratory Results 08/03/17 06:50 08/03/17 11:25 Test 08/03/17 06:50 08/03/17 11:25 08/03/17 16:36 Red Blood Count 3.76 M/uL (4.7-6.1) Mean Corpuscular Volume 89.9 fL (80-100) Mean Corpuscular Hemoglobin 30.6 pg (25-34) Mean Corpuscular Hemoglobin Concent 34.0 g/dl (32-36) RDW Standard Deviation 40.2 fL (36.4-46.3) RDW Coefficient of Variation 12.3 % (11.5-14.5) Mean Platelet Volume 9.9 fL (7.4-10.4) Beta-Hydroxybutyric Acid 37.79 mg/dL (0.2-2.81) Anion Gap 8.0 mmol/L (3-11) Est Creatinine Clear Calc Drug Dose 55.2 ml/min Estimated GFR () 68.2 Estimated GFR (Non- 58.8 BUN/Creatinine Ratio 12.9 (10-20) Calcium Level 7.3 mg/dl (8.5-10.1) Magnesium Level 1.9 mg/dl (1.8-2.4) Bedside Glucose 127 mg/dl (70-99) Assessment and Plan 46yo M with PMH of T1DM and gastroparesis who presented with uncontrollable nausea and vomiting. 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 The patient's daughter was diagnosed with flu. He began having nausea and vomiting on 08/01 that was uncontrollable despite home mediation use including zofran and reglan Intractable Vomiting - Likely related to viral illness triggering gastroparesis flare - Reglan 10mg IV q6h PRN - Zofran 4mg q6h PRN - one dose of ATIVAN 1mg given today, with symptomatic benefit - AVOID PHENERGAN DUE TO ALLERGY - NSS + 20meq K+ @ 150mls/hr running - advancing diet as tolerated. Tolerating clears. - Lipase wnl - Patient previously seen by [facility] for gastroparesis and was recommended to transfer to clinic at [place]; Case mgmt aware. Influenza - Tamiflu 30mg PO BID, renally dosed - Did not repeat Flu swab, treated due to presumed illness, symptoms, h/o contacts and bring high risk - may be contributing to nausea, however weighing the risks and benefits, will continue for now. Type 1 Diabetes - Discontinued pump initially due to NPO status and subsequent hypoglycemia. Started on D50 drip and ISS, then pt was briefly converted to an insulin drip overnight, however is back on insulin pump TODAY and tolerating clears. Pump has setting for "sick" days, for lower amount of insulin. Following. - BSG AC and HS. Last BSG 127. - Hypoglycemic precautions - AG 11 wnl. KRYSTAL - Most likely 2/2 acute illness/ dehydration - IV fluids - Daily BMP - Trending down to 1.27 DVT - SCDs Code Status - Full Resuscitation Resident Physician Supervision Note: I interviewed and examined the patient. Discussed with Dr. Blankenship and agree with findings and plan as documented in the note. When I saw the patient, he was sleeping. Given his nausea earlier in the day, I chose to to awaken him. I discussed the case with the resident team as well as the floor nurse. He has bowel sounds and flatus, so no signs of obstruction. I would consider discontinuing Tamiflu tomorrow if he has persistent nausea. Documented By: Doni Guillermo Resident Tracking Resident Involvement: Resident Care Provided Care Provided: Adult [facility]
[2017-08-04] MEDS: NSS + 20MEQ KCL 1000ML 1,000 ML IV SCH ×3 (00:03→13:11)
[2017-08-04 00:15] VITALS: BP 152/80; PULSE 99; TEMP 37.1; O2SAT 96
[2017-08-04] MEDS ORDERED: PROCHLORPERAZINE INJ 10 MG in SYRINGE 8 ML IV STA (01:03)
[2017-08-04 06:53] LABS: HEMATOCRIT 29.4 % (42-52); HEMOGLOBIN 10.1 g/dL (14.0-18.0); MEAN CELL VOLUME 89.1 fL (80-100); MEAN CORPUSCULAR HEMOGLOBIN 30.6 pg (25-34); MEAN CORPUSCULAR HGB CONC 34.4 g/dl (32-36); MEAN PLATELET VOLUME 9.8 fL (7.4-10.4); PLATELET COUNT 278 K/uL (130-400); RED CELL DISTRIBUTION WIDTH CV 12.1 % (11.5-14.5); RED CELL DISTRIBUTION WIDTH SD 39.3 fL (36.4-46.3)
[2017-08-04 07:17] VITALS: BP 156/90; PULSE 88; TEMP 36.9; O2SAT 97
[2017-08-04 07:29] LABS: CALCIUM 7.3 mg/dl (8.5-10.1); CREATININE 1.12 mg/dl (0.60-1.40); POTASSIUM 3.7 mmol/L (3.5-5.1)
[2017-08-04] MEDS: ONDANSETRON INJ 2 MG/ML 2 ML VIAL IV PRN (07:39)
[2017-08-04] MEDS: OSELTAMIVIR PHOSPHATE SUSP 30 MG/5 ML UDP PO SCH (07:40)
[2017-08-04 08:00] VITALS: O2SAT 97
[2017-08-04 08:23] LABS: BASO % 0.2 %; BASO ABS # 0.03 K/uL (0-0.2); EOS % 0.4 %; EOS ABS # 0.05 K/uL (0-0.5); IG# 0.04 K/uL (0.00-0.02); LYMPH % 22.7 %; LYMPH ABS # 2.89 K/uL (1.2-3.4); MONO % 8.9 %; MONO ABS # 1.13 K/uL (0.11-0.59); NEUT % 67.5 %; NEUT ABS # 8.57 K/uL (1.4-6.5)
[2017-08-04 09:06] LABS: ALBUMIN 2.5 gm/dl (3.4-5.0); TOTAL PROTEIN 5.1 gm/dl (6.4-8.2)
[2017-08-04] MEDS: PANTOprazole INJ 40 MG in SYRINGE 0 ML IV SCH (10:35)
[2017-08-04 11:30] VITALS: BP 135/75; PULSE 85; TEMP 36.9; O2SAT 96
[2017-08-04 13:21] VITALS: Ht 172.7 cm; Wt 60.0 kg
--- NOTE | 2017-08-04 15:00 | Discharge Instructions ---
Discharge Instructions Date of Service Aug 04, 2017. Admission Reason for Admission: Intractable Nausea And Vomiting Discharge Discharge Diagnosis / Problem: intractable nausea and vomiting Discharge Goals Goal(s): Decrease discomfort, Improve function, Improve nutritional status, Diagnostic testing, Therapeutic intervention Activity Recommendations Activity Limitations: resume your previous activity Lifting Limitations: none Exercise/Sports Limitations: as tolerated May Resume Sexual Activity: when tolerated Shower/Bathe: no limitations Driving or Machine Use: no limitations . Current Hospital Diet Patient's current hospital diet: Full Liquid Diet, Diabetes Type 1 Diet. Gradually advance diet. Smaller, more frequent meals. Discharge Diet Recommended Diet: Diabetes Type 1 Diet (Small, more frequent meals. ) Pending Studies Studies pending at discharge: no Laboratory Results Hemoglobin A1c Test 08/02/17 12:44 Range/Units Estimated Average Glucose 252 mg/dl Hemoglobin A1c 10.4 H 4.5-5.6 % Medical Emergencies . Who to Call and When: Medical Emergencies: If at any time you feel your situation is an emergency, please call 911 immediately. . Non-Emergent Contact Non-Emergency issues call your: Primary Care Provider Call Non-Emergent contact if: temperature is above 100.5, your pain is not controlled, your pain is worsening, your pain is unusual for you, your pain is concerning you, you have any medication questions . . "Provider Documentation" section prepared by Doni Guillermo. . VTE Core Measure Inpt VTE Proph given/why not?: SCD's
[2017-08-04 15:18] VITALS: BP 135/75; PULSE 85; TEMP 36.9; O2SAT 97
[2017-08-04] MEDS ORDERED: OSELTAMIVIR PHOSPHATE 75 MG CAP PO SCH (21:00)
--- NOTE | 2017-08-04 22:25 | Discharge Summary ---
Discharge Summary Date of Service Aug 04, 2017. Discharge Summary Admission Date: Aug 03, 2017 at 11:31 Discharge Date: Aug 04, 2017 Discharge Disposition: Home Principal Diagnosis: Intractable nausea and vomiting Problems/Secondary Diagnoses: Type I Diabetes Hypoglycemia Immunizations: Have You Had Influenza Vaccine: Unknown History of Tetanus Vaccine?: Unknown History of Pneumococcal: Unknown History of Hepatitis B Vaccine: Unknown Medication Reconciliation Continued Medications: Bismuth Subsalicylate (Pepto-Bismol) 262 Mg/15 Ml Anabell 15 ML PO UD PRN for GI Upset Insulin Human Lispro (Insulin Humalog Pump ) Pump 1 EA N/A UD, EA use carb rtio 1 unit/10 grams of carbs, use correction factor of 20 for high blood sugar (start at blood sugar of 150 or higher) new basal rate Lansoprazole (Prevacid) 30 Mg Capcr 30 MG PO DAILY, CAP Lorazepam (Lorazepam) 0.5 Mg Tab 0.25-0.5 MG PO TID PRN for Anxiety Metoclopramide (Reglan) 10 Mg Tab 10 MG PO Q6H PRN for Nausea, #15 TAB Ondansetron Hcl (Zofran) 4 Mg Tab 4 MG PO PRN for Nausea, TAB Prochlorperazine (Compazine Supp) 25 Mg Supp 25 MG KS for Nausea or Vomiting, SUPP Discharge Exam Pt resting comfortably in bed today. Throughout the day, is gradually tolerating advancing diet from liquid to solid low fiber. Is stooling regularly. Denies abdominal pain, chest pain, shortness of breath, diarrhea, constipation. ROS See HPI for pertinent positives and negatives. Physical Exam GENERAL: Awake, in no distress. Somnolent. HENT: Normocephalic, atraumatic. EYES: Normal conjunctiva. Sclera non-icteric. RESPIRATORY: Clear to auscultation. CARDIAC: Regular rate, normal rhythm. Extremities warm and well perfused. Pulses equal. ABDOMEN: Soft, non-distended. No tenderness to palpation. No rebound or guarding. No masses. LOWER EXTREMITIES: Calves are equal size bilaterally and non-tender. No edema. No discoloration. NEURO: No motor deficits noted. SKIN: No rash or jaundice noted. Hospital Course Mr. Vega is a 46yo male with PMH of T1DM and gastroparesis who presented with uncontrollable nausea and vomiting. 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 The patient's daughter was diagnosed with flu. Prior to admission, nausea and vomiting was uncontrollable despite home mediation use including zofran and reglan. NPO here, with gentle hydration. Gradually advanced diet. Some difficulty with titrating insulin pump, was dc'ed for a day, then reapplied. Supplemented with dextrose when npo. BSG stable on day of discharge. Discussed at length need to eat smaller frequent meals, and to avoid large meals so as not to exacerbate this gastroparesis flare. Case management also made arrangements for referral to gastric motility clinic at [place]. For more details of hospital stay, please see below. Intractable Vomiting - Likely related to viral illness triggering gastroparesis flare - Reglan 10mg IV q6h PRN - Zofran 4mg q6h PRN - one dose of ATIVAN 1mg given, with symptomatic benefit - AVOIDED PHENERGAN DUE TO ALLERGY - NSS + 20meq K+ @ 150mls/hr for gentle hydration when NPO - advanced diet as tolerated. - Lipase wnl - Patient previously seen by [facility] for gastroparesis and was recommended to transfer to clinic at [place]; Case mgmt arranging referral.. Influenza, presumed. afebrile throughout admission - Tamiflu 30mg PO BID, renally dosed. - No repeat Flu swab done, treated due to presumed illness, symptoms, h/o contacts and bring high risk - may be contributing to nausea, discussed risks and benefits with pt on day of discharge, joint decision made to DC this med. Type 1 Diabetes - Discontinued pump initially due to NPO status and subsequent hypoglycemia. Started on D50 drip and ISS, then pt was briefly converted to an insulin drip overnight, however placed back on insulin pump following day when tolerating clears. Pump has setting for "sick" days, for lower amount of insulin, per pt. - BSG AC and HS. - Hypoglycemic precautions - AG 11 wnl. KRYSTAL - Most likely 2/2 acute illness/ dehydration - IV fluids - Daily BMP - Linoleum Mechanic normal on day of discharge. No further labs needed. DVT - SCDs Code Status - Full Resuscitation Thank you for allowing us to participate in Mr. Vega's care. .Resident Physician Supervision Note: I was present with Dr. Pattie during the history and exam. I discussed the case with the resident and agree with the findings and plan as documented in the note. The patient was tolerating a bland diet without nausea and vomiting and desired discharge. Discussed small, frequent meals as his advances his diet. Also recommended discontinuation of Tamiflu, as this may be contributing to his nausea and I am not convinced he had influenza . Documented By: Doni Guillermo Total Time Spent: Less than 30 minutes This includes examination of the patient, discharge planning, medication reconciliation, and communication with other providers. Discharge Instructions Please refer to the electronic Patient Visit Report (Discharge Instructions) for additional information. Follow-Up Gastric motility clinic, [place]. Additional Copies To Andrew Li MD Resident Tracking Resident Involvement: Resident Care Provided Care Provided: Adult Hospital Medicine
== END 2017-08-04 15:50 | disposition home or self-care (01) | DRG 74 ==
LOC: C.EDB 21:23 → C.MS2W 08-02 00:54 → CANRESERV 08-02 01:16 → ENRESERV 08-02 01:16 → CANRESERV 08-02 01:17 → ENRESERV 08-02 01:17 → OBSVTOIN 08-03 11:31
PROVIDERS: ADMIT Student in an Organized Health Care Education/Training Program; ATTEND Family Medicine
DX: E10.43 Type 1 diabetes mellitus with diabetic autonomic (poly)neuropathy (principal); N17.9 Acute kidney failure, unspecified; J11.2 Influenza due to unidentified influenza virus with gastrointestinal manifestations; R11.2 Nausea with vomiting, unspecified; E10.65 Type 1 diabetes mellitus with hyperglycemia; E10.649 Type 1 diabetes mellitus with hypoglycemia without coma; Z87.891 Personal history of nicotine dependence; Z88.8 Allergy status to other drugs, medicaments and biological substances; Z91.013 Allergy to seafood; Z83.3 Family history of diabetes mellitus

== ENCOUNTER 2018-06-02 07:27 | Inpatient (IN) ==
[2018-06-02] MEDS ORDERED: LORazepam 0.5 MG/1 ML VIAL IV STA (07:44)
[2018-06-02] MEDS ORDERED: SODIUM CHLORIDE 0.9% 1000ML 2,000 ML IV ONE (07:44)
[2018-06-02] MEDS ORDERED: PROCHLORPERAZINE 5 MG/ML 2 ML VIAL IV STA (07:44)
[2018-06-02 08:15] LABS: Basophils # (auto) 0.03 K/uL (0-0.2); Basophils % (auto) 0.2 %; Hematocrit (blood only) 34.8 % (42-52); Hemoglobin 11.8 g/dL (14.0-18.0); Immature Granulocytes # (auto) 0.06 K/uL (0.00-0.02); Immature Granulocytes % (auto) 0.5 %; Lymphocytes # (auto) 1.14 K/uL (1.2-3.4); Lymphocytes % (auto) 8.7 %; Mean Corpuscular Hgb Conc 33.9 g/dL (32-36); Monocytes # (auto) 0.25 K/uL (0.11-0.59); Monocytes % (auto) 1.9 %; Neutrophils # (auto) 11.67 K/uL (1.4-6.5); Neutrophils % (auto) 88.7 %; Platelet Count 317 K/uL (130-400); RDW Coefficient of Variation 12.8 % (11.5-14.5); RDW Standard Deviation 40.9 fL (36.4-46.3); Red Blood Count 3.91 M/uL (4.7-6.1); White Blood Count 13.15 K/uL (4.8-10.8)
[2018-06-02 08:32] LABS: Albumin Level 2.9 gm/dl (3.4-5.0); BUN Creatinine Ratio 13.5 (10-20); Calcium 8.9 mg/dl (8.5-10.1); Creatinine Clr Calc Pharmacy 32.9 ml/min; Est GFR (Non-African American) 29.3; Potassium 3.4 mmol/L (3.5-5.1)
[2018-06-02 08:35] LABS: Albumin Globulin Ratio 0.7 (0.9-2); Bilirubin,Total 0.5 mg/dl (0.1-1); Globulin 4.1 gm/dl (2.5-4.0)
--- NOTE | 2018-06-02 09:34 | XRay Report ---
PA CHEST RADIOGRAPH AND LEFT LATERAL DECUBITUS AND SUPINE AP RADIOGRAPHS OF THE ABDOMEN CLINICAL HISTORY: N/V, h/o T1DM, gastroparesis COMPARISON STUDY: CT of the abdomen and pelvis November 26, 2017 and chest radiograph April 30, 2018. FINDINGS: Lung volumes are normal. Lungs are clear. There is no consolidation or evidence for pulmon abdirizak edema. Cardiac size is normal. Mediastinal contours are normal. There is no free air. A 6 mm righ t renal calculus is present. Pelvic calcifications reflect phlebolith. An insulin pump is incidentall y noted. IMPRESSION: 1. No free air or evidence of bowel obstruction. 2. No acute cardiopulmonary findings. Electronically signed by: Gabino Cool M.D. 06/02/2018 9:32 AM
[2018-06-02] MEDS ORDERED: LABETALOL HCL IV 5 MG/ML 20ML IV STA (10:28)
--- NOTE | 2018-06-02 11:53 | History & Physical Report ---
Date of Service June 02, 2018 Assessment & Plan (1) Nausea & vomitinM with DM1 on insulin pump, gastroparesis, CKD, HTN presents with a one day history of Nausea and Vomiting. Pt received IV Labetalol, 0.5mg Ativan, 10mg Compazine and 1L NSS bolus in the ER with improvement of symptoms. Pt was admitted continued inability to tolerate PO and KRYSTAL on CKD. #Nausea and Vomiting 2/2 to known Gastroparesis Known gastroparesis with multiple admissions here and in [facility], typically resolves after 48hrs IVF & meds, has an evaluation for Gastroparesis at [facility] in the new year. States he takes Valium 5mg BID and Compazine Per Rectum for nausea (didn't take any Compazine before coming in) NPO with IVF as below for KRYSTAL. Normal QTc (Apr 2018 was 460) 4mg ODT Zofran Q4H PRN Nausea 5mg IV Compazine Q4H PRN Nausea or Vomiting 5mg Valium IV BID Defer to [facility] for outpatient treatment. #KRYSTAL on CKD Stage 3 (Creatinine 2.5 today, baseline 1.5-1.8) Creatinine 2.09 Apr 2018 for KRYSTAL, nephro consulted, 2.5 today, baseline 1.5-1.8. 1L NSS in the ER, will start with 1/2NSS + 20meqKCL at 80mls/hr. (64kg, pt previously edematous at [place] from too many fluids. ) # HTN Doesn't measure BPs at home. Hold Lisinopril 5mg PO Daily. Will add on 5mg PRN Q4H Hydralazine for SBP >170 and DBP >100. #CKD Stage 3 Pt and dad wasn't aware he was supposed to get plugged into nephrology near [facility]. Emphasized pt should see a concrete float maker on [place]. #DM1 On insulin pump, will use for DM1 coverage, pt knowledgeable about disease course, reports sugars 120-150 before coming to hospital. HBA1C was 10.5 in 02/2018. Will get HBA1C in AM. #Diabetic Retinopathy Pt gets regular eye injections for detached retina. Just got an injection on Thursday that made his eye red. This is part for the course for his injections. No visual changes or difficulties. #Anxiety Med rec states 5mg BID Valium, will hold and treat with Ativan as above. c/w Sertraline daily. # FEN IVF as above NPO Obs to Med Surg. #Dispo Lives in [place], here visiting family. FULL CODE. (2) CKD stage 3 due to type 1 diabetes mellitus: (3) HTN (hypertension): (4) KRYSTAL (acute kidney injury): (5) DVT prophylaxis: heparin SQ History of Present Illness Primary Care Provider: Andrew ManasaMonica Li 47M with DM1 on insulin pump, gastroparesis, CKD, HTN presents with a one day history of Nausea and Vomiting. Pt has multiple hospital admits in the past for gastroparesis. Pt lives in [place] and is here visiting family. He was here in Feb 2018 for similar issues and then in April for edema after a hospitalization in [place] for gastroparesis. Pt last vomited 30 min ago and again during my exam, vomit was dark and bile colored. Pt states that he didn' t take any of his compazine per rectum. He states that he takes Valium twice a day and compazine per rectum as needed for nausea and vomiting. He does also take Reglan PO QID. Pt states that he has not had diarrhea, nobody else in the family has GI symtpoms (dad confirms this). His symptoms started after eating eggs and hull for breakfast and he did not partake in any meals. Denies eating too much on . Woke up yesterday morning () feeling normal. Pt present today with dad. ROS: No fevers, +cosntantly cold, no diarrhea, no chest pain ,no SOB, no skin rashes, no edema, + RED eye from recent injection, no eye pain, no vision changes, no joint pains, no muscle pain, no anxiety. SHx: Denies ETOH use. Allergies Allergy/AdvReac Type Severity Reaction Status Date / Time shellfish derived Allergy Severe anaphylaxis Verified 06/02/18 08:04 promethazine Allergy Intermediate itchy/hives Verified 06/02/18 08:04 Home Medications Home Medications Medication Instructions Recorded Confirmed Type ondansetron HCl [Zofran] 4 mg PO QID PRN #0 tab 10/05/15 06/02/18 History prochlorperazine [Compazine] 25 mg HI Q12H #0 supp 10/05/15 06/02/18 History insulin pump-infus. set-meter 1 dose NOT APPLICABLE UD #0 dose 05/20/16 History metoclopramide HCl [Reglan] 10 mg PO QID PRN #6 tab 11/26/17 06/02/18 History sertraline 50 mg PO DAILY 02/11/18 06/02/18 History diazepam 5 mg PO BID 06/02/18 06/02/18 History lisinopril 5 mg PO DAILY 06/02/18 06/02/18 History Past Med/Surg History Social History marital status: Single Current Living Situation: Alone Other Information That Helps Us Care for You: No Feels Safe at Home: Yes Safety Concerns: Feels Safe At This Time Smoking Status: Never smoker Do You Dip or Chew Tobacco: No Second Hand Exposure: No Tobacco Cessation Education Requested by Patient: No Hx Alcohol Use: No Hx Substance Use: No Beliefs That Will Affect Care: None Preferred Language: Belizean Communication Ability: Effective Business Services Representative Required: No Physical Exam 2 Vital Signs (Past 24 Hours): Last Vital Signs Temp 36.6 C 06/02/18 07:32 Pulse 85 06/02/18 11:18 Resp 16 06/02/18 11:18 BP 154/91 H 06/02/18 11:18 Pulse Ox 98 06/02/18 08:52 Physical Exam: Gen: Pt is ill appearing. HEENT: Head - normocephalic and atraumatic. Pupils are equal, round, and reactive to light. Extraocular eye muscles are intact and sclera are anicteric. R. Eye: Diffuse conjunctival injection. Nose - moist nasal mucosa without discharge. Mouth - moist buccal mucosa. Oropharynx is nonerythematous and there is no tonsillar exudate or edema noted. Neck: Supple; no JVD, nuchal rigidity, cervical lymphadenopathy, or auscultated bruits. Heart: Regular rate and rhythm. There is a normal S1 and S2 with no murmurs, clicks, or gallops appreciated. Lungs: Clear to auscultation bilaterally with no wheezes, rales, or rhonchi. Abdomen: Soft, completely nontender, nondistended, with good bowel sounds. There are no palpable pulsatile masses or hepatosplenomegaly. There is no guarding, rigidity, or rebound noted. When patient sat up for lung ausculation he did throw up. Extremities: No evidence of cyanosis, clubbing, or edema. There are easily palpable peripheral pulses. Neuro:The patient is awake and alert, oriented to day, time, and place. Muscle strength is 5/5 in all 4 extremities. The patient has equal head cashier strength and equal pedal push and pull. There are no cerebellar signs. Supervising Physician Co-Signing Physician Notes I personally examined the patient and verified all julien points of history and exam, discussed case, and agree with decision making with Dr Oviedo. Intractable nausea and vomiting, no diarrhea, no sick contacts. He notes this feels almost identical to when his gastroparesis is flared up in the past. He does ask for ice chips when I see him. Vitals noted, in general he is laying on his right side very still but in no distress just appearing uncomfortable. HEENT normocephalic atraumatic mucous membranes slightly dry. Breathing is unlabored no accessory muscle use good effort. Abdomen is soft nondistended nontender no masses or organomegaly, no guarding no rebound no rigidity. Skin shows no rashes. Intractable nausea and vomitingmost likely represents gastroparesis flare. Follow closely, but I suspect his leukocytosis is demargination from the vomiting. Supportive care, IV fluids, time. Uncontrolled type 1 diabetesinsulin management, await his current A1c. Otherwise as above.
[2018-06-02] MEDS ORDERED: LORazepam 0.5 MG/1 ML VIAL IV PRN (13:10)
[2018-06-02] MEDS ORDERED: [UNRECOGNIZED DRUG - OTHER] SCH (13:10)
[2018-06-02] MEDS ORDERED: ZOLPIDEM TARTRATE 5 MG TAB PO PRN (13:10)
[2018-06-02] MEDS ORDERED: GLUCOSE 40% GEL 15 GM TUBE PO PRN (13:28)
[2018-06-02] MEDS ORDERED: GLUCOSE 10 TABS/TUBE PO PRN (13:28)
[2018-06-02] MEDS ORDERED: INSULIN HUMAN LISPRO (humaLOG) 100 UNITS/ML VIAL SC PRN (13:28)
[2018-06-02] MEDS ORDERED: DEXTROSE 50% 50 ML SYRINGE IV PRN (13:28)
[2018-06-02] MEDS ORDERED: GLUCAGON FOR INJ 1 MG VIAL SQ PRN (13:28)
[2018-06-02] MEDS ORDERED: INSULIN HUMAN REGULAR PER UNIT 6 UNITS in SYRINGE 5.94 ML IV STA (14:27)
[2018-06-02] MEDS: LORazepam 0.5 MG/1 ML VIAL IV SCH ×2 (14:29→20:48)
[2018-06-02] MEDS: SODIUM CHLOR 0.45% + 20MEQ KCL 20 MEQ/1,000 ML BAG IV SCH (14:30)
[2018-06-02] MEDS: METOCLOPRAMIDE HCL INJ 5 MG/ML 2 ML VIAL IV SCH ×3 (14:30→20:40)
[2018-06-02 16:06] LABS: Prothrombin Time 10.2 Seconds (9.0-12.0)
[2018-06-02] MEDS: INSULIN ASPART 100 UNITS/ML 3 ML PEN SC SCH ×2 (17:06→20:46)
--- NOTE | 2018-06-02 18:53 | Emergency Department Note ---
History of Present Illness General Chief complaint: Illness Time Seen by Provider: 06/02/18 07:35 History of Present Illness 47-year-old male, significant history of type 1 diabetes and gastroparesis, who presents to the emergency department for evaluation of a 12-hour period of uncontrollable nausea and vomiting. The patient reports that he has been admitted in the past with similar symptoms. The patient denies eating any unusual foods yesterday. He also denies any known sick contacts. The patient usually uses Compazine and Reglan at home to prevent nausea, but has unable to keep his medications down. He denies any significant abdominal pain, fever or chills. He reports mild pain radiating into the back. He denies shortness of breath, chest pain or headache. Home Medications Home Medications Medication Instructions Recorded Confirmed Type ondansetron HCl [Zofran] 4 mg PO QID PRN #0 tab 10/05/15 06/02/18 History prochlorperazine [Compazine] 25 mg NC Q12H #0 supp 10/05/15 06/02/18 History insulin pump-infus. set-meter 1 dose NOT APPLICABLE UD #0 dose 05/20/16 History metoclopramide HCl [Reglan] 10 mg PO QID PRN #6 tab 11/26/17 06/02/18 History sertraline 50 mg PO DAILY 02/11/18 06/02/18 History diazepam 5 mg PO BID 06/02/18 06/02/18 History lisinopril 5 mg PO DAILY 06/02/18 06/02/18 History Allergies Allergy/AdvReac Type Severity Reaction Status Date / Time shellfish derived Allergy Severe anaphylaxis Verified 06/02/18 08:04 promethazine Allergy Intermediate itchy/hives Verified 06/02/18 08:04 Past Med/Surg History Medical History Gastroparesis due to DM Acid reflux Hypertension Type I diabetes mellitus Surgical History H/O shoulder surgery History of appendectomy History of hip surgery Social History marital status: Single Current Living Situation: Alone Other Information That Helps Us Care for You: No Feels Safe at Home: Yes Safety Concerns: Feels Safe At This Time Smoking Status: Never smoker Do You Dip or Chew Tobacco: No Second Hand Exposure: No Tobacco Cessation Education Requested by Patient: No Hx Alcohol Use: No Hx Substance Use: No Beliefs That Will Affect Care: None Preferred Language: Italian Communication Ability: Effective Tower Switch Operator Required: No Review of Systems HEENT: Denies dizziness, visual problems, hearing loss, tinnitus. Denies difficulty swallowing or oral lesions. PULMONARY: Denies cough, shortness of breath, sputum production or hemoptysis. CARDIOVASCULAR: Denies chest pain, palpitations, dyspnea on exertion, orthopnea or peripheral edema. GASTROINTESTINAL: Denies diarrhea or constipation, otherwise see HPI. GENITOURINARY: Denies dysuria, frequency, urgency or nocturia. NEUROLOGIC: Denies history of epilepsy, CVA, TIA or chronic headaches. MUSCULOSKELETAL: Denies history of joint tenderness/swelling. SKIN: Denies rashes or lesions. PSYCHIATRIC: History of anxiety. ENDOCRINE: History of diabetes. Denies thyroid disorder. Physical Exam Vital Signs Vital Signs - 24 hr 06/02/18 07:32 06/02/18 08:52 06/02/18 09:51 Temperature 36.6 C Temperature Source Oral Sepsis Recent Fever Within 48 Hours No Sepsis New/Unexplained Change in Mental Status No Sepsis Action Taken by Nursing No Action Required Pulse Rate 94 H Pulse Rate [Apical] 93 H 91 H Pulse Rhythm [Apical] Pulse Strength [Apical] Respiratory Rate 16 16 16 Respiratory Effort / Characteristics Respiratory Depth Respiratory Pattern Blood Pressure 180/123 H Blood Pressure [Left Arm] 211/119 H 198/112 H Blood Pressure [Right Arm] Blood Pressure Mean 142 Blood Pressure Mean [Left Arm] 149 140 Blood Pressure Mean [Right Arm] Blood Pressure Position [Left Arm] Blood Pressure Position [Right Arm] Pulse Oximetry 100 98 Oxygen Delivery Method Room Air 06/02/18 11:05 06/02/18 11:18 06/02/18 11:48 Temperature Temperature Source Sepsis Recent Fever Within 48 Hours Sepsis New/Unexplained Change in Mental Status Sepsis Action Taken by Nursing Pulse Rate Pulse Rate [Apical] 87 85 88 Pulse Rhythm [Apical] Regular Pulse Strength [Apical] Normal Respiratory Rate 16 16 18 Respiratory Effort / Characteristics Non-Labored Spontaneous Respiratory Depth Normal Respiratory Pattern Regular Blood Pressure Blood Pressure [Left Arm] 193/111 H 154/91 H 182/106 H Blood Pressure [Right Arm] Blood Pressure Mean Blood Pressure Mean [Left Arm] 138 112 131 Blood Pressure Mean [Right Arm] Blood Pressure Position [Left Arm] Lying Blood Pressure Position [Right Arm] Pulse Oximetry 96 Oxygen Delivery Method Room Air 06/02/18 12:05 06/02/18 15:37 Temperature 36.6 C Temperature Source Oral Sepsis Recent Fever Within 48 Hours Sepsis New/Unexplained Change in Mental Status Sepsis Action Taken by Nursing Pulse Rate Pulse Rate [Apical] 86 99 H Pulse Rhythm [Apical] Regular Pulse Strength [Apical] Normal Respiratory Rate 16 16 Respiratory Effort / Characteristics Non-Labored Spontaneous Respiratory Depth Normal Respiratory Pattern Regular Blood Pressure Blood Pressure [Left Arm] 161/92 H Blood Pressure [Right Arm] 177/93 H Blood Pressure Mean Blood Pressure Mean [Left Arm] 115 Blood Pressure Mean [Right Arm] 121 Blood Pressure Position [Left Arm] Lying Blood Pressure Position [Right Arm] Lying Pulse Oximetry 97 98 Oxygen Delivery Method Room Air Room Air CONSTITUTIONAL: Healthy and well nourished. Alert and oriented X 3. PSYCHIATRIC: Flat affect, and does not engage in any significant communication secondary to nausea symptoms. HEENT: Normocephalic, atraumatic. Pupils equal, round and reactive. Ears and nares are clear. No scleral icterus or conjunctival injection/pallor. Patient does have a small right subconjunctival hemorrhage from persistent vomiting. Mucous membranes are dry. NECK: Full active range of motion without discomfort. RESPIRATORY: Clear to auscultation bilaterally with no wheezing, crackles, rhonchi or stridor. CARDIOVASCULAR: Regular rate and rhythm with no murmurs, rubs or gallops. GASTROINTESTINAL: Bowel sounds present in all quadrants. Patient has minimal abdominal tenderness to palpation. Surgical incision is noted for prior appendectomy. Negative Prescott sign. Negative CVA tenderness. MUSCULOSKELETAL: Full range of motion of all joints without discomfort. INTEGUMENTARY: No rash or other significant dermatologic conditions noted. HEMATOLOGIC: No ecchymosis or petechiae. NEUROLOGIC: No focal neurologic deficits noted. Course Patient history and physical exam were performed. Nurse's notes were reviewed. Vital signs were reviewed, showing a blood pressure 180/123. Patient is currently afebrile and not tachycardic. He appears in moderate discomfort from nausea. I also reviewed a portion of prior medical records, showing an admission in February 2018 showing an admission for gastroparesis. IV access was established, and labs were drawn. The patient was administered normal saline 2 L bolus. The patient was also administered IV Compazine and Ativan for nausea. This did provide initial moderate relief of his nausea. He continued to deny any significant abdominal pain, and abdominal exam was otherwise unremarkable without focal findings. Labs were reviewed and showed a creatinine of 2.6. A leukocytosis which is usually elevated with gastroparesis. Hemoglobin is 11.8 and higher than his usual baseline. Coagulation studies are normal. Patient's glucose was 274. Albumin is low at 2.9. Lipase is normal. Obstruction series did not show any obstructive pattern or free air. Upon reevaluation, the patient reported that he was having some mildly worsening nausea, rated a 4 out of 10. He did not feel that he needed any further antiemetics. Repeat blood pressure was still elevated. The case was further discussed with Dr. Morgan, ED attending physician, who recommended administering labetalol 10 mg IVP, and consult the hospitalist service for acute renal failure, hypertension and gastroparesis secondary to diabetes. I did discuss the case further with Dr. Ponce, [facility] hospitalist who will evaluate the patient for further admission and treatment. Please see the dictation for further treatment and final disposition. Administered Medications Potassium Chloride/Sodium Chloride (1/2 Nss + 20meq Kcl 1000ml) 20 meq in 1, 000 mls @ 80 mls/hr IV .[id number] JACKI Stop: 07/02/18 13:29 Last Admin: 06/02/18 14:30 Dose: 80 mls/hr Lorazepam (Ativan) 0.5 mg in 1 mls @ 1 mls/min IV TID JACKI Stop: 07/02/18 14:14 Last Admin: 06/02/18 14:29 Dose: Not Given Insulin Aspart (Novolog Flexpen) 0 units SC ACHS JACKI Stop: 07/02/18 16:29 Last Admin: 06/02/18 17:06 Dose: 8 units Metoclopramide HCl (Reglan) 5 mg IV QID JACKI Stop: 07/02/18 14:14 Last Admin: 06/02/18 17:06 Dose: 5 mg Admin: 06/02/18 14:30 Dose: 5 mg Discontinued Medications Sodium Chloride (Nss 1000ml) 2,000 mls @ 999 mls/hr IV .Q2H1M ONE Stop: 06/02/18 09:44 Last Infusion: 06/02/18 10:10 Dose: 0 mls/hr Admin: 06/02/18 08:17 Dose: 999 mls/hr Lorazepam (Ativan) 0.5 mg in 1 mls @ 1 mls/min IV NOW STA Stop: 06/02/18 07:45 Last Admin: 06/02/18 08:19 Dose: 1 mls/min Insulin Human Regular 6 units/ (Syringe) 6 mls @ 0 mls/hr IV ONE STA Stop: 06/02/18 14:28 Last Admin: 06/02/18 15:12 Dose: 6 mls/hr Labetalol HCl (Normodyne) 20 mg IV NOW STA Stop: 06/02/18 10:29 Last Admin: 06/02/18 11:01 Dose: 20 mg Prochlorperazine (Compazine) 10 mg IV NOW STA Stop: 06/02/18 07:45 Last Admin: 06/02/18 08:18 Dose: 10 mg Medical Decision Making Medical Records Attestation: I reviewed the patient's medical records. Home Medications Current Medication List: was personally reviewed by me Laboratory Data Attestation: I reviewed the patient's lab results. Result diagrams: 06/02/18 08:05 06/02/18 08:05 Lab Results 06/02/18 06/02/18 06/02/18 Range/Units 08:05 08:05 14:10 WBC 13.15 H (4.8-10.8) K/uL RBC 3.91 L (4.7-6.1) M/uL Hgb 11.8 L (14.0-18.0) g/dL Hct 34.8 L (42-52) % MCV 89.0 (80-100) fL MCH 30.2 (25-34) pg MCHC 33.9 (32-36) g/dL RDW Std Deviation 40.9 (36.4-46.3) fL RDW Coeff of Kami 12.8 (11.5-14.5) % Plt Count 317 (130-400) K/uL MPV 9.0 (7.4-10.4) fL Immature Gran % (Auto) 0.5 % Neut % (Auto) 88.7 % Lymph % (Auto) 8.7 % [place] % (Auto) 1.9 % Eos % (Auto) 0.0 % Baso % (Auto) 0.2 % Immature Gran # (Auto) 0.06 H (0.00-0.02) K/uL Neut # (Auto) 11.67 H (1.4-6.5) K/uL Lymph # (Auto) 1.14 L (1.2-3.4) K/uL [place] # (Auto) 0.25 (0.11-0.59) K/uL Eos # (Auto) 0.00 (0-0.5) K/uL Baso # (Auto) 0.03 (0-0.2) K/uL PT (9.0-12.0) Seconds INR (0.9-1.1) Sodium 138 (136-145) mmol/L Potassium 3.4 L (3.5-5.1) mmol/L Chloride 102 (98-107) mmol/L Carbon Dioxide 21 (21-32) mmol/L Anion Gap 15.0 H (3-11) BUN 34 H (7-18) mg/dl Creatinine 2.51 H (0.6-1.4) mg/dl Est Cr Clr Drug Dosing 32.9 ml/min Est GFR ( Amer) 34.0 Est GFR (Non-Af Amer) 29.3 BUN/Creatinine Ratio 13.5 (10-20) Glucose 274 H (70-99) mg/dl POC Glucose 397 H* (70-99) Calcium 8.9 (8.5-10.1) mg/dl Total Bilirubin 0.5 (0.1-1) mg/dl AST 20 (15-37) U/L ALT 19 (12-78) U/L Alkaline Phosphatase 126 H (45-117) U/L Total Protein 7.0 (6.4-8.2) gm/dl Albumin 2.9 L (3.4-5.0) gm/dl Globulin 4.1 H (2.5-4.0) gm/dl Albumin/Globulin Ratio 0.7 L (0.9-2) Lipase 131 (73-393) U/L 06/02/18 06/02/18 06/02/18 Range/Units 14:12 15:19 16:29 WBC (4.8-10.8) K/uL RBC (4.7-6.1) M/uL Hgb (14.0-18.0) g/dL Hct (42-52) % MCV (80-100) fL MCH (25-34) pg MCHC (32-36) g/dL RDW Std Deviation (36.4-46.3) fL RDW Coeff of Kami (11.5-14.5) % Plt Count (130-400) K/uL MPV (7.4-10.4) fL Immature Gran % (Auto) % Neut % (Auto) % Lymph % (Auto) % [place] % (Auto) % Eos % (Auto) % Baso % (Auto) % Immature Gran # (Auto) (0.00-0.02) K/uL Neut # (Auto) (1.4-6.5) K/uL Lymph # (Auto) (1.2-3.4) K/uL [place] # (Auto) (0.11-0.59) K/uL Eos # (Auto) (0-0.5) K/uL Baso # (Auto) (0-0.2) K/uL PT 10.2 (9.0-12.0) Seconds INR 1.0 (0.9-1.1) Sodium (136-145) mmol/L Potassium (3.5-5.1) mmol/L Chloride (98-107) mmol/L Carbon Dioxide (21-32) mmol/L Anion Gap (3-11) BUN (7-18) mg/dl Creatinine (0.6-1.4) mg/dl Est Cr Clr Drug Dosing ml/min Est GFR ( Amer) Est GFR (Non-Af Amer) BUN/Creatinine Ratio (10-20) Glucose (70-99) mg/dl POC Glucose 389 H* 386 H* (70-99) Calcium (8.5-10.1) mg/dl Total Bilirubin (0.1-1) mg/dl AST (15-37) U/L ALT (12-78) U/L Alkaline Phosphatase (45-117) U/L Total Protein (6.4-8.2) gm/dl Albumin (3.4-5.0) gm/dl Globulin (2.5-4.0) gm/dl Albumin/Globulin Ratio (0.9-2) Lipase (73-393) U/L Imaging Data Attestation: I personally reviewed and interpreted this imaging study as follows : My Impression: My interpretation of an abdomen obstruction series does not show any free air, obstructive bowel pattern or lung consolidations. Radiologist report was also reviewed. Radiologist's Impression: PA CHEST RADIOGRAPH AND LEFT LATERAL DECUBITUS AND SUPINE AP RADIOGRAPHS OF THE ABDOMEN CLINICAL HISTORY: N/V, h/o T1DM, gastroparesis COMPARISON STUDY: CT of the abdomen and pelvis November 26, 2017 and chest radiograph April 30, 2018. FINDINGS: Lung volumes are normal. Lungs are clear. There is no consolidation or evidence for pulmonary edema. Cardiac size is normal. Mediastinal contours are normal. There is no free air. A 6 mm right renal calculus is present. Pelvic calcifications reflect phlebolith. An insulin pump is incidentally noted. IMPRESSION: 1. No free air or evidence of bowel obstruction. 2. No acute cardiopulmonary findings. Blood Pressure Blood Pressure Findings: Elevated blood pressure Blood Pressure Disposition: further management by hospitalist DAVID Newberry The patient does not appear to be in DKA at this point. He is markedly hypertensive and is responding to IV labetalol. Patient presents with symptoms of nausea and vomiting secondary to gastroparesis. The patient does not have any significant abdominal pain or tenderness to palpation, therefore I do not feel that further CT imaging is warranted. An x-ray does not show any obstructive pattern or free air. It is noted that the patient has a prior history of appendectomy. Laboratory studies are not suggestive of pancreatitis , hepatitis or cholecystitis. The patient does have an elevated creatinine concerning for acute kidney injury. The patient does have history of chronic kidney disease stage III. Impression & Plan Nausea and vomiting, Acute kidney injury, Hypertension, Diabetic gastroparesis , Chronic kidney disease (CKD), stage III (moderate) Discharge Plan Visit Data *Final* Discharge Date/Time: 06/02/18 12:18 Chief Complaint: Illness ED Provider: Dev Morgan ED Midlevel Provider: Wagner Patel Discharge Problem: Nausea and vomiting, Acute kidney injury, Hypertension, Diabetic gastroparesis , Chronic kidney disease (CKD), stage III (moderate) Patient Disposition: Admitted As Inpatient Discharge Instructions Interventions: ED Discharge Assessment Last Done: 06/02/18 12:18
[2018-06-02] MEDS ORDERED: INSULIN GLARGINE SOLOSTAR 100 UNITS/ML 3 ML PEN SC STA (19:39)
[2018-06-02] MEDS ORDERED: INSULIN HUMAN REGULAR PER UNIT 8 UNITS in SYRINGE 0 ML IV STA (20:24)
[2018-06-02] MEDS: HydrALAZINE HCL 20 MG/ML VIAL IV PRN (20:36)
[2018-06-02] MEDS: INSULIN GLARGINE SOLOSTAR 100 UNITS/ML 3 ML PEN SQ SCH (20:38)
[2018-06-02] MEDS: HEPARIN SOD 5,000 UNIT/0.5 ML VIAL SQ SCH (20:47)
[2018-06-02] MEDS: PROCHLORPERAZINE 5 MG in SYRINGE 4 ML IV PRN (20:51)
[2018-06-02] MEDS ORDERED: diazePAM INJ 5 MG/ML 2 ML CARP IV SCH (21:00)
[2018-06-02] MEDS ORDERED: HEPARIN SOD 5,000 UNIT/0.5 ML VIAL SQ SCH (21:00)
[2018-06-02] MEDS: ONDANSETRON 4 MG OD TAB PO PRN (23:26)
[2018-06-03] MEDS: SODIUM CHLOR 0.45% + 20MEQ KCL 20 MEQ/1,000 ML BAG IV SCH ×2 (02:10→15:16)
[2018-06-03] MEDS: INSULIN ASPART 100 UNITS/ML 3 ML PEN SC SCH ×4 (05:59→23:26)
[2018-06-03] MEDS: ONDANSETRON 4 MG OD TAB PO PRN ×2 (06:24→15:15)
[2018-06-03 06:35] LABS: Appearance Urine Clear (Clear); Bacteria Urine Automated Negative (Negative); Bilirubin Urine Negative (Negative); Color Urine Yellow; Epithelial Cell Urine Auto >30 /lpf (0-5); Glucose Urine UA 3+ (Negative); Ketones Urine Negative (Negative); Leukocyte Esterase Urine Negative (Negative); Nitrite Urine Negative (Negative); Protein Urine 4+ (Negative); Specific Gravity Urine 1.021 (1.000-1.030); Urobilinogen Urine Negative (Negative); pH Urine 5.5 (4.5-7.5)
--- NOTE | 2018-06-03 07:08 | Family Medicine Progress Note ---
Date of Service June 03, 2018 Assessment & Plan (1) Nausea & vomitinM with DM1 on insulin pump, gastroparesis, CKD, HTN presents with a one day history of Nausea and Vomiting. Pt received IV Labetalol, 0.5mg Ativan, 10mg Compazine and 1L NSS bolus in the ER with improvement of symptoms. Pt was admitted continued inability to tolerate PO and KRYSTAL on CKD. #Nausea and Vomiting 2/2 to known Gastroparesis Known gastroparesis with multiple admissions here and in [facility], typically resolves after 48hrs IVF & meds, has an evaluation for Gastroparesis at [facility] on July 10. States he takes Valium 5mg BID and Compazine Per Rectum for nausea (didn't take any Compazine before coming in) NPO with IVF as below for KRYSTAL advance diet as tolerated Normal QTc (Apr 2018 was 460) 4mg ODT Zofran Q4H PRN Nausea 5mg IV Compazine Q4H PRN Nausea or Vomiting 0.5mg Ativan IV BID PRN 0.5mg Ativan IV TID JACKI Defer to [facility] for outpatient treatment. #KRYSTAL on CKD Stage 3 (Creatinine 2.5 today, baseline 1.5-1.8) Creatinine 2.09 Apr 2018 for KRYSTAL, 2.7 today, baseline 1.5-1.8. given 1L NSS in the ER, -nephro consulted appreciate recs -1/2NSS + 20meqKCL at 80mls/hr. (64kg, pt previously edematous at [place] from too many fluids. ) #Leukocytosis (active) pt arrived with a wbc 13.5 today it is 22.50 likely 2/2 to desquamation from vomiting, pt firly denies si/syx of acute infectious process. -continue to trend consider abx therapy if still elevated tomorrow # HTN Doesn't measure BPs at home. Hold Lisinopril 5mg PO Daily 2/2 krystal Will add on 5mg PRN Q4H Hydralazine for SBP >170 and DBP >100. #CKD Stage 3 Pt and dad wasn't aware he was supposed to get plugged into nephrology near [facility]. -will obtain outpt followup #DM1 On insulin pump, will use for DM1 coverage, pt knowledgeable about disease course, reports sugars 120-150 before coming to hospital. HBA1C was 10.5 on 02/2018, 8.1 today -if sugars are wacky consider glycemic consult #Diabetic Retinopathy Pt gets regular eye injections for detached retina. Just got an injection on Thursday that made his eye red. This is par for the course for his injections. No visual changes or difficulties. #Anxiety Med rec states 5mg BID Valium, will hold and treat with Ativan as above. c/w Sertraline daily. FENA: IVF as above NPO for now DVT PPX: Dispo:Obs to Med Surg. Lives in [place], here visiting family. FULL CODE. Supervising Physician Co-Signing Physician Notes I personally examined the patient and verified all julien points of history and exam, discussed case, and agree with decision making with Dr Cervantes. No new problems noted. Patient resting comfortably. Vitals noted, in general he is in no distress. Breathing is unlabored no accessory muscle use, skin shows no rashes, pallor, or icterus. Intractable nausea and vomiting related to diabetic gastroparesiscontinue supportive care Acute kidney injury superimposed on CKDlikely related to dehydration from above , continue IV fluids and follow closely. Otherwise as above Subjective Pt was resting in bed this morning throughout my exam. He was very tired this morning and reports not sleeping well. Pt denies any recent symptoms of acute infectious process, cough, congestion, fever, chills, runny nose, abd pain, urinary pain and frequency. Pt reports he still feels nautious this morning. States in the past pt has achieved syx resolution with compazine and ativan. Pt currently NPO, reports voiding and stooling appropriately. 06/02 HPI:47M with DM1 on insulin pump, gastroparesis, CKD, HTN presents with a one day history of Nausea and Vomiting. Pt has multiple hospital admits in the past for gastroparesis. Pt lives in [place] and is here visiting family. He was here in Feb 2018 for similar issues and then in April for edema after a hospitalization in [place] for gastroparesis. Pt last vomited 30 min ago and again during my exam, vomit was dark and bile colored. Pt states that he didn't take any of his compazine per rectum. He states that he takes Valium twice a day and compazine per rectum as needed for nausea and vomiting. He does also take Reglan PO QID. Pt states that he has not had diarrhea, nobody else in the family has GI symtpoms (dad confirms this). His symptoms started after eating eggs and hull for breakfast and he did not partake in any meals. Denies eating too much on . Woke up yesterday morning () feeling normal. Pt present today with dad. ROS: No fevers, +cosntantly cold, no diarrhea, no chest pain ,no SOB, no skin rashes, no edema, + RED eye from recent injection, no eye pain, no vision changes, no joint pains, no muscle pain, no anxiety. SHx: Denies ETOH use. Physical Exam 2 Vital Signs (Past 24 Hours): Last Vital Signs Temp 36.8 C 06/02/18 22:42 Pulse 98 H 06/02/18 22:42 Resp 20 06/02/18 22:42 BP 112/62 06/02/18 22:42 Pulse Ox 96 06/02/18 22:42 Constitutional: well developed, well nourished, + ill appearing, + thin and cooperative Eyes: normal visual garcia by confrontation Neck: trachea midline, no thyromegaly Thyroid: normal thyroid Respiratory: normal respiratory effort, lungs clear to auscultation Auscultation: lungs clear to auscultation bilaterally Cardiovascular: RRR, no murmur, no edema Heart Sounds: normal S1 and normal S2 Vessels: no JVD Extremities: no calf tenderness Gastrointestinal (Abdomen): normal bowel sounds, soft, nontender, no hepatosplenomegaly Skin: no rashes, warm and dry Psychiatric: A+Ox3, euthymic affect Affect: + flat affect Lymphatic: no cervical or axillary lymphadenopathy Results & Data Laboratory Results 06/03/18 06/03/18 06/02/18 Range/Units 06:15 05:58 23:59 WBC (4.8-10.8) K/uL RBC (4.7-6.1) M/uL Hgb (14.0-18.0) g/dL Hct (42-52) % MCV (80-100) fL MCH (25-34) pg MCHC (32-36) g/dL RDW Std Deviation (36.4-46.3) fL RDW Coeff of Kami (11.5-14.5) % Plt Count (130-400) K/uL MPV (7.4-10.4) fL Immature Gran % (Auto) % Neut % (Auto) % Lymph % (Auto) % [place] % (Auto) % Eos % (Auto) % Baso % (Auto) % Immature Gran # (Auto) (0.00-0.02) K/uL Neut # (Auto) (1.4-6.5) K/uL Lymph # (Auto) (1.2-3.4) K/uL [place] # (Auto) (0.11-0.59) K/uL Eos # (Auto) (0-0.5) K/uL Baso # (Auto) (0-0.2) K/uL PT (9.0-12.0) Seconds INR (0.9-1.1) Sodium (136-145) mmol/L Potassium (3.5-5.1) mmol/L Chloride (98-107) mmol/L Carbon Dioxide (21-32) mmol/L Anion Gap (3-11) BUN (7-18) mg/dl Creatinine (0.6-1.4) mg/dl Est Cr Clr Drug Dosing ml/min Est GFR ( Amer) Est GFR (Non-Af Amer) BUN/Creatinine Ratio (10-20) Glucose (70-99) mg/dl POC Glucose 147 H 233 H (70-99) Calcium (8.5-10.1) mg/dl Total Bilirubin (0.1-1) mg/dl AST (15-37) U/L ALT (12-78) U/L Alkaline Phosphatase (45-117) U/L Total Protein (6.4-8.2) gm/dl Albumin (3.4-5.0) gm/dl Globulin (2.5-4.0) gm/dl Albumin/Globulin Ratio (0.9-2) Lipase (73-393) U/L Urine Color Yellow Urine Appearance Clear (Clear) Urine pH 5.5 (4.5-7.5) Ur Specific Diamond 1.021 (1.000-1.030) Urine Protein 4+ H (Negative) Urine Glucose (UA) 3+ H (Negative) Urine Ketones Negative (Negative) Urine Blood 1+ H (Negative) Urine Nitrite Negative (Negative) Urine Bilirubin Negative (Negative) Urine Urobilinogen Negative (Negative) Ur Leukocyte Esterase Negative (Negative) Urine WBC (Auto) 1-5 (0-5) /hpf Urine RBC (Auto) 0-4 (0-4) /hpf U Hyaline Cast (Auto) 1-5 (0-5) /lpf U Epithel Cells (Auto) >30 H (0-5) /lpf Urine Bacteria (Auto) Negative (Negative) Ur Renal Epithelial Cell Not Reportable 06/02/18 06/02/18 06/02/18 Range/Units 22:26 18:43 16:29 WBC (4.8-10.8) K/uL RBC (4.7-6.1) M/uL Hgb (14.0-18.0) g/dL Hct (42-52) % MCV (80-100) fL MCH (25-34) pg MCHC (32-36) g/dL RDW Std Deviation (36.4-46.3) fL RDW Coeff of Kami (11.5-14.5) % Plt Count (130-400) K/uL MPV (7.4-10.4) fL Immature Gran % (Auto) % Neut % (Auto) % Lymph % (Auto) % [place] % (Auto) % Eos % (Auto) % Baso % (Auto) % Immature Gran # (Auto) (0.00-0.02) K/uL Neut # (Auto) (1.4-6.5) K/uL Lymph # (Auto) (1.2-3.4) K/uL [place] # (Auto) (0.11-0.59) K/uL Eos # (Auto) (0-0.5) K/uL Baso # (Auto) (0-0.2) K/uL PT (9.0-12.0) Seconds INR (0.9-1.1) Sodium (136-145) mmol/L Potassium (3.5-5.1) mmol/L Chloride (98-107) mmol/L Carbon Dioxide (21-32) mmol/L Anion Gap (3-11) BUN (7-18) mg/dl Creatinine (0.6-1.4) mg/dl Est Cr Clr Drug Dosing ml/min Est GFR ( Amer) Est GFR (Non-Af Amer) BUN/Creatinine Ratio (10-20) Glucose (70-99) mg/dl POC Glucose 266 H 349 H 386 H* (70-99) Calcium (8.5-10.1) mg/dl Total Bilirubin (0.1-1) mg/dl AST (15-37) U/L ALT (12-78) U/L Alkaline Phosphatase (45-117) U/L Total Protein (6.4-8.2) gm/dl Albumin (3.4-5.0) gm/dl Globulin (2.5-4.0) gm/dl Albumin/Globulin Ratio (0.9-2) Lipase (73-393) U/L Urine Color Urine Appearance (Clear) Urine pH (4.5-7.5) Ur Specific Diamond (1.000-1.030) Urine Protein (Negative) Urine Glucose (UA) (Negative) Urine Ketones (Negative) Urine Blood (Negative) Urine Nitrite (Negative) Urine Bilirubin (Negative) Urine Urobilinogen (Negative) Ur Leukocyte Esterase (Negative) Urine WBC (Auto) (0-5) /hpf Urine RBC (Auto) (0-4) /hpf U Hyaline Cast (Auto) (0-5) /lpf U Epithel Cells (Auto) (0-5) /lpf Urine Bacteria (Auto) (Negative) Ur Renal Epithelial Cell 06/02/18 06/02/18 06/02/18 Range/Units 15:19 14:12 14:10 WBC (4.8-10.8) K/uL RBC (4.7-6.1) M/uL Hgb (14.0-18.0) g/dL Hct (42-52) % MCV (80-100) fL MCH (25-34) pg MCHC (32-36) g/dL RDW Std Deviation (36.4-46.3) fL RDW Coeff of Kami (11.5-14.5) % Plt Count (130-400) K/uL MPV (7.4-10.4) fL Immature Gran % (Auto) % Neut % (Auto) % Lymph % (Auto) % [place] % (Auto) % Eos % (Auto) % Baso % (Auto) % Immature Gran # (Auto) (0.00-0.02) K/uL Neut # (Auto) (1.4-6.5) K/uL Lymph # (Auto) (1.2-3.4) K/uL [place] # (Auto) (0.11-0.59) K/uL Eos # (Auto) (0-0.5) K/uL Baso # (Auto) (0-0.2) K/uL PT 10.2 (9.0-12.0) Seconds INR 1.0 (0.9-1.1) Sodium (136-145) mmol/L Potassium (3.5-5.1) mmol/L Chloride (98-107) mmol/L Carbon Dioxide (21-32) mmol/L Anion Gap (3-11) BUN (7-18) mg/dl Creatinine (0.6-1.4) mg/dl Est Cr Clr Drug Dosing ml/min Est GFR ( Amer) Est GFR (Non-Af Amer) BUN/Creatinine Ratio (10-20) Glucose (70-99) mg/dl POC Glucose 389 H* 397 H* (70-99) Calcium (8.5-10.1) mg/dl Total Bilirubin (0.1-1) mg/dl AST (15-37) U/L ALT (12-78) U/L Alkaline Phosphatase (45-117) U/L Total Protein (6.4-8.2) gm/dl Albumin (3.4-5.0) gm/dl Globulin (2.5-4.0) gm/dl Albumin/Globulin Ratio (0.9-2) Lipase (73-393) U/L Urine Color Urine Appearance (Clear) Urine pH (4.5-7.5) Ur Specific Diamond (1.000-1.030) Urine Protein (Negative) Urine Glucose (UA) (Negative) Urine Ketones (Negative) Urine Blood (Negative) Urine Nitrite (Negative) Urine Bilirubin (Negative) Urine Urobilinogen (Negative) Ur Leukocyte Esterase (Negative) Urine WBC (Auto) (0-5) /hpf Urine RBC (Auto) (0-4) /hpf U Hyaline Cast (Auto) (0-5) /lpf U Epithel Cells (Auto) (0-5) /lpf Urine Bacteria (Auto) (Negative) Ur Renal Epithelial Cell 06/02/18 06/02/18 Range/Units 08:05 08:05 WBC 13.15 H (4.8-10.8) K/uL RBC 3.91 L (4.7-6.1) M/uL Hgb 11.8 L (14.0-18.0) g/dL Hct 34.8 L (42-52) % MCV 89.0 (80-100) fL MCH 30.2 (25-34) pg MCHC 33.9 (32-36) g/dL RDW Std Deviation 40.9 (36.4-46.3) fL RDW Coeff of Kami 12.8 (11.5-14.5) % Plt Count 317 (130-400) K/uL MPV 9.0 (7.4-10.4) fL Immature Gran % (Auto) 0.5 % Neut % (Auto) 88.7 % Lymph % (Auto) 8.7 % [place] % (Auto) 1.9 % Eos % (Auto) 0.0 % Baso % (Auto) 0.2 % Immature Gran # (Auto) 0.06 H (0.00-0.02) K/uL Neut # (Auto) 11.67 H (1.4-6.5) K/uL Lymph # (Auto) 1.14 L (1.2-3.4) K/uL [place] # (Auto) 0.25 (0.11-0.59) K/uL Eos # (Auto) 0.00 (0-0.5) K/uL Baso # (Auto) 0.03 (0-0.2) K/uL PT (9.0-12.0) Seconds INR (0.9-1.1) Sodium 138 (136-145) mmol/L Potassium 3.4 L (3.5-5.1) mmol/L Chloride 102 (98-107) mmol/L Carbon Dioxide 21 (21-32) mmol/L Anion Gap 15.0 H (3-11) BUN 34 H (7-18) mg/dl Creatinine 2.51 H (0.6-1.4) mg/dl Est Cr Clr Drug Dosing 32.9 ml/min Est GFR ( Amer) 34.0 Est GFR (Non-Af Amer) 29.3 BUN/Creatinine Ratio 13.5 (10-20) Glucose 274 H (70-99) mg/dl POC Glucose (70-99) Calcium 8.9 (8.5-10.1) mg/dl Total Bilirubin 0.5 (0.1-1) mg/dl AST 20 (15-37) U/L ALT 19 (12-78) U/L Alkaline Phosphatase 126 H (45-117) U/L Total Protein 7.0 (6.4-8.2) gm/dl Albumin 2.9 L (3.4-5.0) gm/dl Globulin 4.1 H (2.5-4.0) gm/dl Albumin/Globulin Ratio 0.7 L (0.9-2) Lipase 131 (73-393) U/L Urine Color Urine Appearance (Clear) Urine pH (4.5-7.5) Ur Specific Diamond (1.000-1.030) Urine Protein (Negative) Urine Glucose (UA) (Negative) Urine Ketones (Negative) Urine Blood (Negative) Urine Nitrite (Negative) Urine Bilirubin (Negative) Urine Urobilinogen (Negative) Ur Leukocyte Esterase (Negative) Urine WBC (Auto) (0-5) /hpf Urine RBC (Auto) (0-4) /hpf U Hyaline Cast (Auto) (0-5) /lpf U Epithel Cells (Auto) (0-5) /lpf Urine Bacteria (Auto) (Negative) Ur Renal Epithelial Cell Medications Administered Current Inpatient Medications Dextrose (Dextrose 50%) 25 - 50 ml IV UD PRN; Protocol PRN Reason: Hypoglycemia Protocol Stop: 07/02/18 13:27 Glucagon (Glucagen) 1 mg SQ UD PRN; Protocol PRN Reason: Hypoglycemia Protocol Stop: 07/02/18 13:27 Glucose (Glucose 40%) 15 - 30 gm PO UD PRN; Protocol PRN Reason: Hypoglycemia Protocol Stop: 07/02/18 13:27 Glucose (Dex4 Glucose) 4 - 8 tabs PO UD PRN; Protocol PRN Reason: Hypoglycemia Protocol Stop: 07/02/18 13:27 Heparin Sodium (Porcine) (Heparin Sodium (Porcine)) 5,000 units SQ Q12 JACKI Stop: 07/02/18 20:59 Last Admin: 06/02/18 20:47 Dose: Not Given Hydralazine HCl (Hydralazine Hcl) 5 mg IV Q4H PRN PRN Reason: Hypertension Stop: 07/02/18 13:09 Last Admin: 06/02/18 20:36 Dose: 5 mg Prochlorperazine 5 mg/ Syringe 5 mls @ 5 mls/min IV Q4H PRN PRN Reason: Nausea And Vomiting Stop: 07/02/18 13:09 Last Admin: 06/02/18 20:51 Dose: 5 mls/min Lorazepam (Ativan) 0.5 mg in 1 mls @ 1 mls/min IV BID PRN PRN Reason: Anxiety Stop: 07/02/18 13:09 Potassium Chloride/Sodium Chloride (1/2 Nss + 20meq Kcl 1000ml) 20 meq in 1, 000 mls @ 80 mls/hr IV .[id number] [facility] Stop: 07/02/18 13:29 Last Admin: 06/03/18 02:10 Dose: 80 mls/hr Lorazepam (Ativan) 0.5 mg in 1 mls @ 1 mls/min IV TID [facility] Stop: 07/02/18 14:14 Last Admin: 06/02/18 20:48 Dose: 1 mls/min Insulin Aspart (Novolog Flexpen) 0 units SC ACHS [facility] Stop: 07/02/18 16:29 Last Admin: 06/03/18 05:59 Dose: Not Given Insulin Glargine (Lantus Solostar Pen) 5 units SQ BID [facility] Stop: 07/02/18 20:59 Last Admin: 06/02/18 20:38 Dose: 5 units Insulin Human Lispro (Humalog Insulin Pump) 1 ea N/A Q6 [facility]; Protocol Stop: 07/02/18 17:59 Insulin Human Lispro (Humalog) 0 units SC PRN PRN PRN Reason: REFILL Stop: 07/02/18 13:27 Metoclopramide HCl (Reglan) 5 mg IV QID [facility] Stop: 07/02/18 14:14 Last Admin: 06/02/18 20:40 Dose: 5 mg Miscellaneous (Carbohydrates For Hypoglycemia) 15 - 30 gm PO UD PRN PRN Reason: Hypoglycemia Treatment Stop: 07/02/18 13:27 Ondansetron HCl (Zofran Odt) 4 mg PO Q4H PRN PRN Reason: Nausea Stop: 07/02/18 13:09 Last Admin: 06/03/18 06:24 Dose: 4 mg Sertraline HCl (Zoloft) 50 mg PO DAILY JACKI Stop: 07/03/18 08:59 Zolpidem Tartrate (Ambien) 5 mg PO HS PRN PRN Reason: Sleep Stop: 07/02/18 13:09 Resident Activity Tracking Resident Involvement: Resident Care Provided Care Provided: Adult Hospital Medicine
[2018-06-03 07:09] LABS: Estimated Average Glucose 194 mg/dl
[2018-06-03 07:15] LABS: Hematocrit (blood only) 26.8 % (42-52); Mean Corpuscular Hgb Conc 33.6 g/dL (32-36); Mean Corpuscular Volume 91.2 fL (80-100); Mean Platelet Volume 8.8 fL (7.4-10.4); Platelet Count 286 K/uL (130-400); RDW Coefficient of Variation 13.1 % (11.5-14.5); RDW Standard Deviation 43.6 fL (36.4-46.3); Red Blood Count 2.94 M/uL (4.7-6.1)
[2018-06-03 07:40] LABS: Calcium 7.6 mg/dl (8.5-10.1); Creatinine Clr Calc Pharmacy 30.5 ml/min; Est GFR (Non-African American) 26.7; Potassium 3.4 mmol/L (3.5-5.1)
[2018-06-03 07:58] LABS: Basophils # (auto) 0.02 K/uL (0-0.2); Basophils % (auto) 0.1 %; Eosinophils # (auto) 0.01 K/uL (0-0.5); Immature Granulocytes # (auto) 0.08 K/uL (0.00-0.02); Immature Granulocytes % (auto) 0.4 %; Lymphocytes # (auto) 2.09 K/uL (1.2-3.4); Lymphocytes % (auto) 9.3 %; Monocytes # (auto) 1.91 K/uL (0.11-0.59); Monocytes % (auto) 8.5 %; Neutrophils # (auto) 18.39 K/uL (1.4-6.5); Neutrophils % (auto) 81.7 %; RBC Morphology Unremarkable
[2018-06-03] MEDS: HEPARIN SOD 5,000 UNIT/0.5 ML VIAL SQ SCH ×2 (08:22→20:19)
[2018-06-03] MEDS: SERTRALINE HCL 50 MG TABLET PO SCH (08:26)
[2018-06-03] MEDS: METOCLOPRAMIDE HCL INJ 5 MG/ML 2 ML VIAL IV SCH ×4 (08:26→20:29)
[2018-06-03] MEDS: LORazepam 0.5 MG/1 ML VIAL IV SCH ×3 (08:26→20:29)
[2018-06-03] MEDS: INSULIN GLARGINE SOLOSTAR 100 UNITS/ML 3 ML PEN SQ SCH ×2 (08:27→20:30)
[2018-06-03] MEDS: HydrALAZINE HCL 20 MG/ML VIAL IV PRN ×2 (10:08→22:52)
[2018-06-03] MEDS ORDERED: CARBOHYDRATES FOR HYPOGLYCEMIA PO PRN (12:44)
[2018-06-03] MEDS ORDERED: DEXTROSE 50% 50 ML SYRINGE IV PRN (12:44)
[2018-06-03] MEDS ORDERED: GLUCOSE 40% GEL 15 GM TUBE PO PRN (12:44)
[2018-06-03] MEDS ORDERED: GLUCOSE 10 TABS/TUBE PO PRN (12:44)
[2018-06-03] MEDS ORDERED: GLUCAGON FOR INJ 1 MG VIAL SQ PRN ×2 (12:44→18:50)
[2018-06-03] MEDS: PROCHLORPERAZINE 5 MG in SYRINGE 4 ML IV PRN ×2 (12:46→19:17)
[2018-06-03] MEDS ORDERED: SODIUM CHLORIDE 0.9% 1000ML 1,000 ML IV ONE (16:50)
[2018-06-03] MEDS ORDERED: Nursing to Pharmacy Communication ONE (23:30)
[2018-06-04] MEDS: PROCHLORPERAZINE 5 MG in SYRINGE 4 ML IV PRN ×2 (00:07→06:18)
[2018-06-04] MEDS: SODIUM CHLOR 0.45% + 20MEQ KCL 20 MEQ/1,000 ML BAG IV SCH ×3 (03:57→21:46)
[2018-06-04] MEDS: INSULIN ASPART 100 UNITS/ML 3 ML PEN SC SCH ×3 (05:57→18:00)
[2018-06-04 06:33] LABS: Basophils # (auto) 0.03 K/uL (0-0.2); Basophils % (auto) 0.2 %; Eosinophils # (auto) 0.03 K/uL (0-0.5); Eosinophils % (auto) 0.2 %; Hematocrit (blood only) 29.8 % (42-52); Hemoglobin 9.8 g/dL (14.0-18.0); Immature Granulocytes % (auto) 0.6 %; Lymphocytes # (auto) 2.47 K/uL (1.2-3.4); Lymphocytes % (auto) 14.1 %; Mean Corpuscular Hgb Conc 32.9 g/dL (32-36); Mean Platelet Volume 8.7 fL (7.4-10.4); Monocytes # (auto) 1.67 K/uL (0.11-0.59); Monocytes % (auto) 9.5 %; Neutrophils # (auto) 13.24 K/uL (1.4-6.5); Neutrophils % (auto) 75.4 %; Platelet Count 316 K/uL (130-400); RDW Coefficient of Variation 12.9 % (11.5-14.5); RDW Standard Deviation 43.8 fL (36.4-46.3); Red Blood Count 3.24 M/uL (4.7-6.1); White Blood Count 17.54 K/uL (4.8-10.8)
--- NOTE | 2018-06-04 06:53 | Family Medicine Progress Note ---
Date of Service June 04, 2018 Assessment & Plan (1) Nausea & vomitinM with DM1 on insulin pump, gastroparesis, CKD, HTN presents with a one day history of Nausea and Vomiting. Pt received IV Labetalol, 0.5mg Ativan, 10mg Compazine and 1L NSS bolus in the ER with improvement of symptoms. Pt was admitted continued inability to tolerate PO and KRYSTAL on CKD. #Nausea and Vomiting 2/2 to known Gastroparesis vs cyclic vomiting syndrome Known gastroparesis with multiple admissions here and in [facility], typically resolves after 48hrs IVF & meds, has an evaluation for Gastroparesis at [facility] on July 10. States he takes Valium 5mg BID and Compazine Per Rectum for nausea (didn't take any Compazine before coming in). Per patient last episode lasted a week and nothing made him feel better besides supportive therapy and time. NPO with IVF as below for KRYSTAL advance diet as tolerated Normal QTc (Apr 2018 was 460) 4mg ODT Zofran Q4H PRN Nausea 5mg IV Compazine Q4H PRN Nausea or Vomiting 0.5mg Ativan IV BID PRN 0.5mg Ativan IV TID JACKI Defer to [facility] for outpatient treatment. per uptodate could consider a trial of triptan abortive therapy for cvs If this is [facility] supportive therapy we may have to let the episode run its course #KRYSTAL on CKD Stage 3 (Creatinine 2.5 today, baseline 1.5-1.8) Creatinine 2.09 Apr 2018 for KRYSTAL, 2.5 today, baseline 1.5-1.8. given 1L NSS in the ER, -nephro consulted appreciate recs -1/2NSS + 20meqKCL at 80mls/hr. (64kg, pt previously edematous at [place] from too many fluids. ) #Leukocytosis (active) pt arrived with a wbc 13.5 peaked to 22.50 today 17.5 likely 2/2 to demargination from vomiting, pt firmly denies si/syx of acute infectious process. -Resolving, continue to trend cbc # HTN Doesn't measure BPs at home. Continue holding Lisinopril 5mg PO Daily 2/2 krystal Will add on 5mg PRN Q4H Hydralazine for SBP >170 and DBP >100. #CKD Stage 3 Pt and dad wasn't aware he was supposed to get plugged into nephrology near [facility]. -will obtain outpt followup #DM1 On insulin pump, will use for DM1 coverage, pt knowledgeable about disease course, reports sugars 120-150 before coming to hospital. HBA1C was 10.5 on 02/2018, 8.1 today -placed glycemic consult following recs #Diabetic Retinopathy Pt gets regular eye injections for detached retina. Just got an injection on Thursday that made his eye red. This is par for the course for his injections. No visual changes or difficulties. #Anxiety Med rec states 5mg BID Valium, will hold and treat with Ativan as above. c/w Sertraline daily. FENA: IVF as above NPO for now DVT PPX: Dispo:Obs to Med Surg. Lives in [place], here visiting family. FULL CODE. Subjective Pt dry heaving in bed when, this a.m. Pt reports not having a good night last night, multiple episodes of N/V. Appears to be relieved by compazine and ativan , pt recieved this am while i was in the room and dry heaving resolved. I asked the patient how long his previous episodes lasted and he stated up to a week. Reports the only effective treatment is compazine and valium. Pt currently npo with fluids, reports bm yesterday and voiding appropriately. Physical Exam 2 Vital Signs (Past 24 Hours): Last Vital Signs Temp 37.1 C 06/03/18 22:00 Pulse 91 H 06/04/18 00:09 Resp 18 06/03/18 22:00 BP 155/83 H 06/04/18 00:09 Pulse Ox 95 06/03/18 22:00 Constitutional: well developed, well nourished, + ill appearing, + thin and cooperative Eyes: normal visual garcia by confrontation Neck: trachea midline, no thyromegaly Thyroid: normal thyroid Respiratory: normal respiratory effort, lungs clear to auscultation Auscultation: lungs clear to auscultation bilaterally Cardiovascular: RRR, no murmur, no edema Heart Sounds: normal S1 and normal S2 Vessels: no JVD Extremities: no calf tenderness Gastrointestinal (Abdomen): normal bowel sounds, soft, nontender, no hepatosplenomegaly Skin: no rashes, warm and dry Psychiatric: A+Ox3, euthymic affect Affect: + flat affect Lymphatic: no cervical or axillary lymphadenopathy Results & Data Laboratory Results 06/04/18 06/04/18 06/04/18 Range/Units 05:54 05:54 05:54 WBC 17.54 H (4.8-10.8) K/uL RBC 3.24 L (4.7-6.1) M/uL Hgb 9.8 L (14.0-18.0) g/dL Hct 29.8 L (42-52) % MCV 92.0 (80-100) fL MCH 30.2 (25-34) pg MCHC 32.9 (32-36) g/dL RDW Std Deviation 43.8 (36.4-46.3) fL RDW Coeff of Kami 12.9 (11.5-14.5) % Plt Count 316 (130-400) K/uL MPV 8.7 (7.4-10.4) fL Immature Gran % (Auto) 0.6 % Neut % (Auto) 75.4 % Lymph % (Auto) 14.1 % Daniels % (Auto) 9.5 % Eos % (Auto) 0.2 % Baso % (Auto) 0.2 % Immature Gran # (Auto) 0.10 H (0.00-0.02) K/uL Neut # (Auto) 13.24 H (1.4-6.5) K/uL Lymph # (Auto) 2.47 (1.2-3.4) K/uL Daniels # (Auto) 1.67 H (0.11-0.59) K/uL Eos # (Auto) 0.03 (0-0.5) K/uL Baso # (Auto) 0.03 (0-0.2) K/uL RBC Morphology Sodium Pending (136-145) mmol/L Potassium Pending (3.5-5.1) mmol/L Chloride Pending (98-107) mmol/L Carbon Dioxide Pending (21-32) mmol/L Anion Gap Pending (3-11) BUN Pending (7-18) mg/dl Creatinine Pending (0.6-1.4) mg/dl Est Cr Clr Drug Dosing Pending ml/min Est GFR ( Amer) Pending Est GFR (Non-Af Amer) Pending BUN/Creatinine Ratio Pending (10-20) Glucose Pending (70-99) mg/dl POC Glucose 202 H (70-99) Estimat Average Glucose mg/dl Hemoglobin A1c (4.5-5.6) % Calcium Pending (8.5-10.1) mg/dl C-Reactive Protein (0-0.29) mg/dl Ur Renal Epithelial Cell 06/04/18 06/03/18 06/03/18 Range/Units 00:18 23:24 18:12 WBC (4.8-10.8) K/uL RBC (4.7-6.1) M/uL Hgb (14.0-18.0) g/dL Hct (42-52) % MCV (80-100) fL MCH (25-34) pg MCHC (32-36) g/dL RDW Std Deviation (36.4-46.3) fL RDW Coeff of Kami (11.5-14.5) % Plt Count (130-400) K/uL MPV (7.4-10.4) fL Immature Gran % (Auto) % Neut % (Auto) % Lymph % (Auto) % Daniels % (Auto) % Eos % (Auto) % Baso % (Auto) % Immature Gran # (Auto) (0.00-0.02) K/uL Neut # (Auto) (1.4-6.5) K/uL Lymph # (Auto) (1.2-3.4) K/uL Daniels # (Auto) (0.11-0.59) K/uL Eos # (Auto) (0-0.5) K/uL Baso # (Auto) (0-0.2) K/uL RBC Morphology Sodium (136-145) mmol/L Potassium (3.5-5.1) mmol/L Chloride (98-107) mmol/L Carbon Dioxide (21-32) mmol/L Anion Gap (3-11) BUN (7-18) mg/dl Creatinine (0.6-1.4) mg/dl Est Cr Clr Drug Dosing ml/min Est GFR ( Amer) Est GFR (Non-Af Amer) BUN/Creatinine Ratio (10-20) Glucose (70-99) mg/dl POC Glucose 193 H 192 H 170 H (70-99) Estimat Average Glucose mg/dl Hemoglobin A1c (4.5-5.6) % Calcium (8.5-10.1) mg/dl C-Reactive Protein (0-0.29) mg/dl Ur Renal Epithelial Cell 06/03/18 06/03/18 06/03/18 Range/Units 11:42 07:37 06:54 WBC (4.8-10.8) K/uL RBC (4.7-6.1) M/uL Hgb (14.0-18.0) g/dL Hct (42-52) % MCV (80-100) fL MCH (25-34) pg MCHC (32-36) g/dL RDW Std Deviation (36.4-46.3) fL RDW Coeff of Kami (11.5-14.5) % Plt Count (130-400) K/uL MPV (7.4-10.4) fL Immature Gran % (Auto) % Neut % (Auto) % Lymph % (Auto) % Daniels % (Auto) % Eos % (Auto) % Baso % (Auto) % Immature Gran # (Auto) (0.00-0.02) K/uL Neut # (Auto) (1.4-6.5) K/uL Lymph # (Auto) (1.2-3.4) K/uL Daniels # (Auto) (0.11-0.59) K/uL Eos # (Auto) (0-0.5) K/uL Baso # (Auto) (0-0.2) K/uL RBC Morphology Sodium (136-145) mmol/L Potassium (3.5-5.1) mmol/L Chloride (98-107) mmol/L Carbon Dioxide (21-32) mmol/L Anion Gap (3-11) BUN (7-18) mg/dl Creatinine (0.6-1.4) mg/dl Est Cr Clr Drug Dosing ml/min Est GFR ( Amer) Est GFR (Non-Af Amer) BUN/Creatinine Ratio (10-20) Glucose (70-99) mg/dl POC Glucose 199 H 165 H (70-99) Estimat Average Glucose mg/dl Hemoglobin A1c (4.5-5.6) % Calcium (8.5-10.1) mg/dl C-Reactive Protein < 0.29 (0-0.29) mg/dl Ur Renal Epithelial Cell 06/03/18 06/03/18 06/03/18 Range/Units 06:54 06:54 06:54 WBC 22.50 H (4.8-10.8) K/uL RBC 2.94 L (4.7-6.1) M/uL Hgb 9.0 L (14.0-18.0) g/dL Hct 26.8 L (42-52) % MCV 91.2 (80-100) fL MCH 30.6 (25-34) pg MCHC 33.6 (32-36) g/dL RDW Std Deviation 43.6 (36.4-46.3) fL RDW Coeff of Kami 13.1 (11.5-14.5) % Plt Count 286 (130-400) K/uL MPV 8.8 (7.4-10.4) fL Immature Gran % (Auto) 0.4 % Neut % (Auto) 81.7 % Lymph % (Auto) 9.3 % Daniels % (Auto) 8.5 % Eos % (Auto) 0.0 % Baso % (Auto) 0.1 % Immature Gran # (Auto) 0.08 H (0.00-0.02) K/uL Neut # (Auto) 18.39 H (1.4-6.5) K/uL Lymph # (Auto) 2.09 (1.2-3.4) K/uL Daniels # (Auto) 1.91 H (0.11-0.59) K/uL Eos # (Auto) 0.01 (0-0.5) K/uL Baso # (Auto) 0.02 (0-0.2) K/uL RBC Morphology Unremarkable Sodium 141 (136-145) mmol/L Potassium 3.4 L (3.5-5.1) mmol/L Chloride 109 H (98-107) mmol/L Carbon Dioxide 23 (21-32) mmol/L Anion Gap 9.0 (3-11) BUN 43 H (7-18) mg/dl Creatinine 2.71 H (0.6-1.4) mg/dl Est Cr Clr Drug Dosing 30.5 ml/min Est GFR ( Amer) 31.0 Est GFR (Non-Af Amer) 26.7 BUN/Creatinine Ratio 16.0 (10-20) Glucose 158 H (70-99) mg/dl POC Glucose (70-99) Estimat Average Glucose 194 mg/dl Hemoglobin A1c 8.4 H (4.5-5.6) % Calcium 7.6 L (8.5-10.1) mg/dl C-Reactive Protein (0-0.29) mg/dl Ur Renal Epithelial Cell 06/03/18 Range/Units 06:15 WBC (4.8-10.8) K/uL RBC (4.7-6.1) M/uL Hgb (14.0-18.0) g/dL Hct (42-52) % MCV (80-100) fL MCH (25-34) pg MCHC (32-36) g/dL RDW Std Deviation (36.4-46.3) fL RDW Coeff of Kami (11.5-14.5) % Plt Count (130-400) K/uL MPV (7.4-10.4) fL Immature Gran % (Auto) % Neut % (Auto) % Lymph % (Auto) % Daniels % (Auto) % Eos % (Auto) % Baso % (Auto) % Immature Gran # (Auto) (0.00-0.02) K/uL Neut # (Auto) (1.4-6.5) K/uL Lymph # (Auto) (1.2-3.4) K/uL Daniels # (Auto) (0.11-0.59) K/uL Eos # (Auto) (0-0.5) K/uL Baso # (Auto) (0-0.2) K/uL RBC Morphology Sodium (136-145) mmol/L Potassium (3.5-5.1) mmol/L Chloride (98-107) mmol/L Carbon Dioxide (21-32) mmol/L Anion Gap (3-11) BUN (7-18) mg/dl Creatinine (0.6-1.4) mg/dl Est Cr Clr Drug Dosing ml/min Est GFR ( Amer) Est GFR (Non-Af Amer) BUN/Creatinine Ratio (10-20) Glucose (70-99) mg/dl POC Glucose (70-99) Estimat Average Glucose mg/dl Hemoglobin A1c (4.5-5.6) % Calcium (8.5-10.1) mg/dl C-Reactive Protein (0-0.29) mg/dl Ur Renal Epithelial Cell Not Reportable Medications Administered Current Inpatient Medications Dextrose (Dextrose 50%) 25 - 50 ml IV UD PRN; Protocol PRN Reason: Hypoglycemia Protocol Stop: 07/02/18 13:27 Glucagon (Glucagen) 1 mg SQ UD PRN; Protocol PRN Reason: Hypoglycemia Protocol Stop: 07/02/18 13:27 Glucagon (Glucagen) 1 mg SQ UD PRN; Protocol PRN Reason: Hypoglycemia Protocol Stop: 07/03/18 18:49 Glucose (Glucose 40%) 15 - 30 gm PO UD PRN; Protocol PRN Reason: Hypoglycemia Protocol Stop: 07/02/18 13:27 Glucose (Dex4 Glucose) 4 - 8 tabs PO UD PRN; Protocol PRN Reason: Hypoglycemia Protocol Stop: 07/02/18 13:27 Heparin Sodium (Porcine) (Heparin Sodium (Porcine)) 5,000 units SQ Q12 JACKI Stop: 07/02/18 20:59 Last Admin: 06/03/18 20:19 Dose: Not Given Hydralazine HCl (Hydralazine Hcl) 5 mg IV Q4H PRN PRN Reason: Hypertension Stop: 07/02/18 13:09 Last Admin: 06/03/18 22:52 Dose: 5 mg Prochlorperazine 5 mg/ Syringe 5 mls @ 5 mls/min IV Q4H PRN PRN Reason: Nausea And Vomiting Stop: 07/02/18 13:09 Last Admin: 06/04/18 06:18 Dose: 5 mls/min Lorazepam (Ativan) 0.5 mg in 1 mls @ 1 mls/min IV BID PRN PRN Reason: Anxiety Stop: 07/02/18 13:09 Potassium Chloride/Sodium Chloride (1/2 Nss + 20meq Kcl 1000ml) 20 meq in 1, 000 mls @ 120 mls/hr IV .Q8H20M JACKI Stop: 07/02/18 13:29 Last Infusion: 06/04/18 05:04 Dose: 120 mls/hr Lorazepam (Ativan) 0.5 mg in 1 mls @ 1 mls/min IV TID JACKI Stop: 07/02/18 14:14 Last Admin: 06/03/18 20:29 Dose: 1 mls/min Insulin Aspart (Novolog Flexpen) 0 units SC Q6 JACKI Stop: 07/04/18 05:59 Last Admin: 06/04/18 05:57 Dose: 2 units Insulin Glargine (Lantus Solostar Pen) 5 units SQ BID JACKI Stop: 07/02/18 20:59 Last Admin: 06/03/18 20:30 Dose: 5 units Insulin Human Lispro (Humalog Insulin Pump) 1 ea N/A Q6 [facility]; Protocol Stop: 07/02/18 17:59 Insulin Human Lispro (Humalog) 0 units SC PRN PRN PRN Reason: REFILL Stop: 07/02/18 13:27 Metoclopramide HCl (Reglan) 5 mg IV QID [facility] Stop: 07/02/18 14:14 Last Admin: 06/03/18 20:29 Dose: 5 mg Miscellaneous (Carbohydrates For Hypoglycemia) 15 - 30 gm PO UD PRN PRN Reason: Hypoglycemia Treatment Stop: 07/02/18 13:27 Ondansetron HCl (Zofran Odt) 4 mg PO Q4H PRN PRN Reason: Nausea Stop: 07/02/18 13:09 Last Admin: 06/03/18 15:15 Dose: 4 mg Sertraline HCl (Zoloft) 50 mg PO DAILY [facility] Stop: 07/03/18 08:59 Last Admin: 06/03/18 08:26 Dose: 50 mg Zolpidem Tartrate (Ambien) 5 mg PO HS PRN PRN Reason: Sleep Stop: 07/02/18 13:09 Resident Activity Tracking Resident Involvement: Resident Care Provided Care Provided: Adult Hospital Medicine
[2018-06-04] MEDS: ONDANSETRON 4 MG OD TAB PO PRN ×2 (06:58→23:12)
[2018-06-04] MEDS: HydrALAZINE HCL 20 MG/ML VIAL IV PRN ×2 (06:59→23:12)
[2018-06-04 07:11] LABS: BUN Creatinine Ratio 15.8 (10-20); Calcium 7.4 mg/dl (8.5-10.1); Creatinine Clr Calc Pharmacy 32.7 ml/min; Est GFR (African American) 33.7
[2018-06-04] MEDS: LORazepam 0.5 MG/1 ML VIAL IV SCH ×3 (08:23→21:45)
[2018-06-04] MEDS: METOCLOPRAMIDE HCL INJ 5 MG/ML 2 ML VIAL IV SCH ×4 (08:23→21:46)
[2018-06-04] MEDS: HEPARIN SOD 5,000 UNIT/0.5 ML VIAL SQ SCH ×2 (08:25→22:12)
[2018-06-04] MEDS: SERTRALINE HCL 50 MG TABLET PO SCH (08:26)
[2018-06-04] MEDS: INSULIN GLARGINE SOLOSTAR 100 UNITS/ML 3 ML PEN SQ SCH (08:26)
[2018-06-04] MEDS ORDERED: PHARMACY GLYCEMIC MGMT CONSULT PRN (09:00)
[2018-06-04] MEDS ORDERED: INSULIN GLARGINE SOLOSTAR 100 UNITS/ML 3 ML PEN SC STA (10:19)
[2018-06-04] MEDS ORDERED: DRONABINOL 2.5 MG CAP PO PRN (12:35)
[2018-06-04] MEDS: DRONABINOL 2.5 MG CAP PO SCH ×2 (13:20→23:13)
--- NOTE | 2018-06-04 14:13 | Gastrointestinal Consultation ---
Date of Consultation June 04, 2018 Assessment & Plan (1) Nausea and vomitin47 year old male with known gastroparesis re-admitted with nausea/ vomiting no abdominal pain. He has had resolution of his emesis with current dosing regimen but continues to dry heave. No coffee ground emesis or hematemesis. No black/bloody stools. Recent EGD 05/17 w/ resolution of esophagitis but with a large amount of residual food. - IVF maintenance hydration - Continue Zofran as scheduled - Continue Compazine as scheduled - Would recommend to increase Reglan to 10 mg IV QID - Consider e-mycin 250 mg every 6 hours if we are able to obtain from pharmacy if symptoms persist despite increase in Reglan - If symptoms persist would then recommend a single dose of IV Emend - No role for repeat EGD at current time Thank you for allowing us to participate in the care of this patient. Please call with any acute changes, questions or concerns. Please see addendum below with additional recommendation from my supervising physician. Attg add: I interviewed and examined pt, reviewed chart and labs. Pt with DM1 h /o refractory gastroparesis admitted with intractable n/v. Imaging does not show bowelobstruction, labs sig for leukocytosis. Glycemic control 300's on admit, 200's. Would recommend scheduled IV reglan 10 QID and plan for Emend; of note, IV emycin is unavailable. Would d/c Marinol; would reserve if his sypmtoms are refactory to Emend, emycin. Of note, if Marinol is needed, would begin at 2.5 BID. Please check LFT's, lipase. Cont aggressive glycemic control. Present on Admission?: Yes History of Present Illness Reason for Consultation: N/V, hx gastroparesis Requesting Physician: Kendall Attending Physician: Obie Argueta, DO History of Present Illness 47 YO male with history of poorly controlled T1DM, gastroparesis who follows with [facility] in [place] presenting through the ED w/ N/V since 06/01/18. He notes his been having worsening symptoms over the past few months. Was recently admitted in February had EGD at that time. Repeated as an OP less than two weeks ago. Notes since Allie, had had more persistent nausea, vomiting. Denies any black/bloody emesis. He notes his emesis is typically food he just ate but currently is just clear liquids/bile. No abdominal pain. Passing gas, last BM was prior to admission. No diarrhea. No fever, chills, CP, SOB. No sick contacts, no international travel. Since arrival at [facility], he continues with dry heaving but per nursing there has been no vomiting today. Currently on Reglan IV, compazine, zofran, marinol KUB 06/02/18: nonobstructive EGD 05/17/18: Normal esophagus.A large amount of food (residue) in the stomach. Pylorus wide open. Normal duodenal bulb and second portion of the duodenum. No specimens collected. EGD 02/15/18: LA Grade D reflux esophagitis. Z-line, 40 cm from the incisors.Normal stomach. Pylorus was Injected with botulinum toxin. Normal duodenal bulb and second portion of the duodenum. No specimens collected. Allergies Allergy/AdvReac Type Severity Reaction Status Date / Time shellfish derived Allergy Severe anaphylaxis Verified 06/02/18 08:04 promethazine Allergy Intermediate itchy/hives Verified 06/02/18 08:04 Home Medications Home Medications Medication Instructions Recorded Confirmed Type ondansetron HCl [Zofran] 4 mg PO QID PRN #0 tab 10/05/15 06/02/18 History prochlorperazine [Compazine] 25 mg CA Q12H #0 supp 10/05/15 06/02/18 History insulin pump-infus. set-meter 1 dose NOT APPLICABLE UD #0 dose 05/20/16 History metoclopramide HCl [Reglan] 10 mg PO QID PRN #6 tab 11/26/17 06/02/18 History sertraline 50 mg PO DAILY 02/11/18 06/02/18 History diazepam 5 mg PO BID 06/02/18 06/02/18 History lisinopril 5 mg PO DAILY 06/02/18 06/02/18 History Patient History Medical History Gastroparesis due to DM Acid reflux Hypertension Type I diabetes mellitus Surgical History H/O shoulder surgery History of appendectomy History of hip surgery Social History marital status: Single Current Living Situation: Alone Other Information That Helps Us Care for You: No Feels Safe at Home: Yes Safety Concerns: Feels Safe At This Time Smoking Status: Never smoker Do You Dip or Chew Tobacco: No Second Hand Exposure: No Tobacco Cessation Education Requested by Patient: No Hx Alcohol Use: No Hx Substance Use: No Beliefs That Will Affect Care: None Communication Ability: Effective Review of Systems Constitutional: + weight loss; no fever and no chills Respiratory: no cough, no chest congestion and no wheezing Cardiovascular: no chest pain, no chest pain at rest and no claudication Gastrointestinal: + nausea; no abdominal pain, no belching, no bloating, no early satiety, no heartburn, no vomiting, no coffee ground emesis, no hematemesis, no pain with swallowing, no dysphagia, no cramping, no change in bowel habits, no change in stools, no constipation, no diarrhea/loose stools, no fecal incontinence, no blood in stools and no melena Physical Exam 2 Vital Signs (Past 24 Hours): Last Vital Signs Temp 36.7 C 06/04/18 07:09 Pulse 92 H 06/04/18 08:35 Resp 20 06/04/18 07:09 BP 176/88 H 06/04/18 08:35 Pulse Ox 96 06/04/18 07:09 Constitutional: + acute distress (pt started dry-heaving during discssion but no vomiting), cooperative and comfortable Respiratory: normal respiratory effort, lungs clear to auscultation Cardiovascular: RRR, no murmur, no edema Gastrointestinal (Abdomen): normal bowel sounds, soft, nontender, no hepatosplenomegaly Skin: no rashes, warm and dry Results & Data Laboratory Results 06/04/18 06/04/18 06/04/18 Range/Units 12:47 12:18 05:54 WBC (4.8-10.8) K/uL RBC (4.7-6.1) M/uL Hgb (14.0-18.0) g/dL Hct (42-52) % MCV (80-100) fL MCH (25-34) pg MCHC (32-36) g/dL RDW Std Deviation (36.4-46.3) fL RDW Coeff of Kami (11.5-14.5) % Plt Count (130-400) K/uL MPV (7.4-10.4) fL Immature Gran % (Auto) % Neut % (Auto) % Lymph % (Auto) % Newberry % (Auto) % Eos % (Auto) % Baso % (Auto) % Immature Gran # (Auto) (0.00-0.02) K/uL Neut # (Auto) (1.4-6.5) K/uL Lymph # (Auto) (1.2-3.4) K/uL Newberry # (Auto) (0.11-0.59) K/uL Eos # (Auto) (0-0.5) K/uL Baso # (Auto) (0-0.2) K/uL Sodium (136-145) mmol/L Potassium (3.5-5.1) mmol/L Chloride (98-107) mmol/L Carbon Dioxide (21-32) mmol/L Anion Gap (3-11) BUN (7-18) mg/dl Creatinine (0.6-1.4) mg/dl Est Cr Clr Drug Dosing ml/min Est GFR ( Amer) Est GFR (Non-Af Amer) BUN/Creatinine Ratio (10-20) Glucose (70-99) mg/dl POC Glucose 253 H 227 H 202 H (70-99) Calcium (8.5-10.1) mg/dl 06/04/18 06/04/18 06/04/18 Range/Units 05:54 05:54 00:18 WBC 17.54 H (4.8-10.8) K/uL RBC 3.24 L (4.7-6.1) M/uL Hgb 9.8 L (14.0-18.0) g/dL Hct 29.8 L (42-52) % MCV 92.0 (80-100) fL MCH 30.2 (25-34) pg MCHC 32.9 (32-36) g/dL RDW Std Deviation 43.8 (36.4-46.3) fL RDW Coeff of Kami 12.9 (11.5-14.5) % Plt Count 316 (130-400) K/uL MPV 8.7 (7.4-10.4) fL Immature Gran % (Auto) 0.6 % Neut % (Auto) 75.4 % Lymph % (Auto) 14.1 % Newberry % (Auto) 9.5 % Eos % (Auto) 0.2 % Baso % (Auto) 0.2 % Immature Gran # (Auto) 0.10 H (0.00-0.02) K/uL Neut # (Auto) 13.24 H (1.4-6.5) K/uL Lymph # (Auto) 2.47 (1.2-3.4) K/uL Newberry # (Auto) 1.67 H (0.11-0.59) K/uL Eos # (Auto) 0.03 (0-0.5) K/uL Baso # (Auto) 0.03 (0-0.2) K/uL Sodium 141 (136-145) mmol/L Potassium 4.0 D (3.5-5.1) mmol/L Chloride 111 H (98-107) mmol/L Carbon Dioxide 21 (21-32) mmol/L Anion Gap 9.0 (3-11) BUN 40 H (7-18) mg/dl Creatinine 2.53 H (0.6-1.4) mg/dl Est Cr Clr Drug Dosing 32.7 ml/min Est GFR ( Amer) 33.7 Est GFR (Non-Af Amer) 29.0 BUN/Creatinine Ratio 15.8 (10-20) Glucose 193 H (70-99) mg/dl POC Glucose 193 H (70-99) Calcium 7.4 L (8.5-10.1) mg/dl 06/03/18 06/03/18 Range/Units 23:24 18:12 WBC (4.8-10.8) K/uL RBC (4.7-6.1) M/uL Hgb (14.0-18.0) g/dL Hct (42-52) % MCV (80-100) fL MCH (25-34) pg MCHC (32-36) g/dL RDW Std Deviation (36.4-46.3) fL RDW Coeff of Kami (11.5-14.5) % Plt Count (130-400) K/uL MPV (7.4-10.4) fL Immature Gran % (Auto) % Neut % (Auto) % Lymph % (Auto) % Newberry % (Auto) % Eos % (Auto) % Baso % (Auto) % Immature Gran # (Auto) (0.00-0.02) K/uL Neut # (Auto) (1.4-6.5) K/uL Lymph # (Auto) (1.2-3.4) K/uL Newberry # (Auto) (0.11-0.59) K/uL Eos # (Auto) (0-0.5) K/uL Baso # (Auto) (0-0.2) K/uL Sodium (136-145) mmol/L Potassium (3.5-5.1) mmol/L Chloride (98-107) mmol/L Carbon Dioxide (21-32) mmol/L Anion Gap (3-11) BUN (7-18) mg/dl Creatinine (0.6-1.4) mg/dl Est Cr Clr Drug Dosing ml/min Est GFR ( Amer) Est GFR (Non-Af Amer) BUN/Creatinine Ratio (10-20) Glucose (70-99) mg/dl POC Glucose 192 H 170 H (70-99) Calcium (8.5-10.1) mg/dl _ (1) Nausea and vomiting Vomiting Intractability: Vomiting type:
--- NOTE | 2018-06-04 15:26 | Pharmacy Report ---
Glycemic Control Consultation - Date of Service June 04, 2018 - Scope Scope: Glycemic Pharmacist consulted by Dr Cervantes on 06/04/18 for glycemic control and to write orders per [facility] inpatient glycemic control protocol - Objective Weight: 78 kg Accuchecks BSG (last 24hrs): 06/03/18 06/03/18 06/04/18 18:12 23:24 00:18 Glucose POC Glucose 170 H 192 H 193 H 06/04/18 06/04/18 06/04/18 05:54 05:54 12:18 Glucose 193 H POC Glucose 202 H 227 H 06/04/18 12:47 Glucose POC Glucose 253 H Laboratory Data (last 24hrs): 06/04/18 05:54 Potassium 4.0 D Carbon Dioxide 21 Anion Gap 9.0 Creatinine 2.53 H Est Cr Clr Drug Dosing 32.7 HbA1c: Hemoglobin A1c 8.4 % (4.5-5.6) H 06/03/18 06:54 - Recent Pertinent Medications Outpatient Anti-diabetic Regimen: * Humalog insulin pump, please see previous glycemic notes for Mr. De Los Santos's settings. * A1c = 8.4 % 06/03/18 - Assessment & Plan Assessment & Plan: ASSESSMENT: * Mr. De Los Santos is a 47yo M known to the pharmacy glycemic service from previous admissions. His PMHx is consistent for gastroparesis, recurrent N/V, KRYSTAL, HTN, CKD. His pump is currently on hold due to his N/V and NPO status. * He is a very brittle type 1 diabetic and BSGs bt 100-250mg/dL are acceptable while in the hospital * He tends to go low with large doses of lantus given in the AM. Will trial a split lantus regimen * CO2/ bicarbonate/ AG WNL PLAN FOR INPATIENT GLYCEMIC CONTROL: * Basal insulin * Lantus scale SQ BID * BSGs <160mg/dL give 5 units * BSGs >/=160mg/dL give 10 units * Bolus insulin * NovoLog per scale ACHS or Q6hrs while NPO * Goal Range: Low 110 mg/dL - High 140 mg/dL * Correction Factor: 25 mg/dL/unit * Nutritional / Prandial insulin per carb ratio of 1 unit per 10 grams CHO consumed * adding 00,04 checks * Please note that the plan above was derived based on current level of insulin resistance and hospital stress. These recommendations are appropriate for inpatient admission only. Plan of care upon discharge will need to be reassessed to avoid potential outpatient hypo/hyperglycemia. Thank you.
[2018-06-04] MEDS ORDERED: FOSAPREPITANT DIMEGLUMINE 150 MG in SODIUM CHLORIDE 0.9% 145 ML IV ONE (16:45)
[2018-06-04 17:58] LABS: Alanine Aminotransferase 14 U/L (12-78); Albumin Level 2.2 gm/dl (3.4-5.0); Alkaline Phosphatase 95 U/L (45-117); Aspartate Aminotransferase 13 U/L (15-37); Bilirubin Direct < 0.1 mg/dl (0-0.2); Bilirubin,Total 0.3 mg/dl (0.1-1); Total Protein 5.4 gm/dl (6.4-8.2)
[2018-06-04] MEDS: INSULIN GLARGINE SOLOSTAR 100 UNITS/ML 3 ML PEN SC SCH (22:11)
[2018-06-05] MEDS: INSULIN ASPART 100 UNITS/ML 3 ML PEN SC SCH ×6 (00:46→20:50)
[2018-06-05] MEDS ORDERED: INSULIN ASPART 100 UNITS/ML 3 ML PEN SC ONE (04:00)
[2018-06-05] MEDS: SODIUM CHLOR 0.45% + 20MEQ KCL 20 MEQ/1,000 ML BAG IV SCH ×4 (05:57→22:11)
[2018-06-05] MEDS: HydrALAZINE HCL 20 MG/ML VIAL IV PRN ×3 (07:06→22:56)
[2018-06-05 07:24] LABS: Basophils # (auto) 0.02 K/uL (0-0.2); Basophils % (auto) 0.1 %; Eosinophils # (auto) 0.01 K/uL (0-0.5); Eosinophils % (auto) 0.1 %; Hematocrit (blood only) 33.1 % (42-52); Hemoglobin 10.8 g/dL (14.0-18.0); Immature Granulocytes # (auto) 0.09 K/uL (0.00-0.02); Immature Granulocytes % (auto) 0.6 %; Lymphocytes # (auto) 1.45 K/uL (1.2-3.4); Lymphocytes % (auto) 9.9 %; Mean Corpuscular Hgb Conc 32.6 g/dL (32-36); Mean Corpuscular Volume 91.9 fL (80-100); Mean Platelet Volume 10.2 fL (7.4-10.4); Monocytes # (auto) 0.62 K/uL (0.11-0.59); Monocytes % (auto) 4.2 %; Neutrophils # (auto) 12.51 K/uL (1.4-6.5); Neutrophils % (auto) 85.1 %; Platelet Count 287 K/uL (130-400); RDW Standard Deviation 43.8 fL (36.4-46.3)
[2018-06-05 08:02] LABS: BUN Creatinine Ratio 16.7 (10-20); Calcium 7.8 mg/dl (8.5-10.1); Creatinine Clr Calc Pharmacy 34.2 ml/min; Est GFR (African American) 32.9; Est GFR (Non-African American) 28.4; Potassium 4.6 mmol/L (3.5-5.1)
[2018-06-05] MEDS: DRONABINOL 2.5 MG CAP PO SCH (08:46)
[2018-06-05] MEDS: LORazepam 0.5 MG/1 ML VIAL IV SCH ×3 (08:47→20:20)
[2018-06-05] MEDS: HEPARIN SOD 5,000 UNIT/0.5 ML VIAL SQ SCH ×2 (08:47→20:46)
[2018-06-05] MEDS: METOCLOPRAMIDE HCL INJ 5 MG/ML 2 ML VIAL IV SCH ×3 (08:48→20:22)
[2018-06-05] MEDS: INSULIN GLARGINE SOLOSTAR 100 UNITS/ML 3 ML PEN SC SCH ×2 (08:49→20:50)
[2018-06-05] MEDS: SERTRALINE HCL 50 MG TABLET PO SCH (08:49)
[2018-06-05] MEDS ORDERED: INSULIN GLARGINE SOLOSTAR 100 UNITS/ML 3 ML PEN SC STA (10:05)
--- NOTE | 2018-06-05 11:05 | Family Medicine Progress Note ---
Date of Service June 05, 2018 Assessment & Plan (1) Nausea & vomitinM with DM1 on insulin pump, gastroparesis, CKD, HTN presents with a one day history of Nausea and Vomiting. Pt received IV Labetalol, 0.5mg Ativan, 10mg Compazine and 1L NSS bolus in the ER with improvement of symptoms. Pt was admitted continued inability to tolerate PO and KRYSTAL on CKD. #Nausea and Vomiting 2/2 to known Gastroparesis vs cyclic vomiting syndrome Known gastroparesis with multiple admissions here and in [facility], typically resolves after 48hrs IVF & meds, has an evaluation for Gastroparesis at [facility] on July 10. States he takes Valium 5mg BID and Compazine Per Rectum for nausea (didn't take any Compazine before coming in). Per patient last episode lasted a week and nothing made him feel better besides supportive therapy and time. NPO with IVF as below for KRYSTAL advance diet as tolerated Normal QTc (Apr 2018 was 460) 4mg ODT Zofran Q4H PRN Nausea 5mg IV Compazine Q4H PRN Nausea or Vomiting 0.5mg Ativan IV BID PRN 0.5mg Ativan IV TID JACKI Defer to [facility] for outpatient treatment. per uptodate could consider a trial of triptan abortive therapy for cvs If this is [facility] supportive therapy we may have to let the episode run its course - will not make any changes today as he is improving, will stay the course with current treatment plan - will trial clear liquids and advance as tolerated #KRYSTAL on CKD Stage 3 (Creatinine 2.5 today, baseline 1.5-1.8) Creatinine 2.09 Apr 2018 for KRYSTAL, 2.59 today, baseline 1.5-1.8. given 1L NSS in the ER, -nephro consulted appreciate recs -1/2NSS + 20meqKCL at 120mls/hr. (64kg, pt previously edematous at [place] from too many fluids. ) #Leukocytosis (active) pt arrived with a wbc 13.5 peaked to 22.50 today 14.7 likely 2/2 to demargination from vomiting, pt firmly denies si/syx of acute infectious process. -Resolving, continue to trend cbc # HTN Doesn't measure BPs at home. Continue holding Lisinopril 5mg PO Daily 2/2 krystal Will add on 5mg PRN Q4H Hydralazine for SBP >170 and DBP >100. #CKD Stage 3 Pt and dad wasn't aware he was supposed to get plugged into nephrology near [address]. -will obtain outpt followup #DM1 On insulin pump, will use for DM1 coverage, pt knowledgeable about disease course, reports sugars 120-150 before coming to hospital. HBA1C was 10.5 on 02/2018, 8.1 today -placed glycemic consult following recs #Diabetic Retinopathy Pt gets regular eye injections for detached retina. Just got an injection on Thursday that made his eye red. This is par for the course for his injections. No visual changes or difficulties. #Anxiety Med rec states 5mg BID Valium, will hold and treat with Ativan as above. c/w Sertraline daily. FENA: IVF as above NPO for now DVT PPX: Dispo:Obs to Med Surg. Lives in [place], here visiting family. FULL CODE. Supervising Physician Co-Signing Physician Notes I personally examined the patient and verified all julien points of history and exam, discussed case, and agree with decision making with Dr Garg. Resting comfortably, it sounds like he would like to try clears. Vitals noted, in general he is resting comfortably no distress. Breathing is unlabored without accessory muscle use. Skin shows no rashes no pallor or icterus. Intractable nausea and vomiting related to diabetic gastroparesiscontinue supportive care, seems to hopefully be turning the corner. Trial of clear liquids and slowly advance as tolerated. Acute kidney injury superimposed on CKDlikely related to dehydration from above , continue IV fluids and follow closely. It has been improving ongoing, will continue fluids as such, his current creatinines have been higher than his baseline earlier this fall, but the same as they have been for the last month or 2. Otherwise as above Subjective Mr. De Los Santos states he feels better today and has less nausea with vomiting. He states he had a BM last night and has been passing gas. He states he was able to tolerate sips of water. He denies diarrhea, chest pain, shortness of breath, fever, chills. Physical Exam 2 Vital Signs (Past 24 Hours): Last Vital Signs Temp 36.6 C 06/05/18 07:24 Pulse 93 H 06/05/18 09:04 Resp 16 06/05/18 07:24 BP 178/94 H 06/05/18 09:04 Pulse Ox 95 06/05/18 07:24 Constitutional: + thin, cooperative and comfortable Eyes: + anicteric sclerae and EOM intact bilaterally Neck: normal visual inspection and trachea midline Respiratory: normal respiratory effort, lungs clear to auscultation Cardiovascular: RRR, no murmur, no edema Gastrointestinal (Abdomen): Inspection/Auscultation: normal bowel sounds Percussion/Palpation: abdomen soft; abdomen nontender, no guarding and abdomen not rigid Musculoskeletal: Head/Neck/Chest: normocephalic and head atraumatic Skin: no rashes, warm and dry Neurologic: moves all extremities and awake Psychiatric: Orientation: oriented x 3 Results & Data Laboratory Results Laboratory Results - last 24 hr 06/04/18 06/04/18 06/04/18 12:18 12:47 17:20 WBC RBC Hgb Hct MCV MCH MCHC RDW Std Deviation RDW Coeff of Kami Plt Count MPV Immature Gran % (Auto) Neut % (Auto) Lymph % (Auto) Atlantic % (Auto) Eos % (Auto) Baso % (Auto) Immature Gran # (Auto) Neut # (Auto) Lymph # (Auto) [place] # (Auto) Eos # (Auto) Baso # (Auto) Sodium Potassium Chloride Carbon Dioxide Anion Gap BUN Creatinine Est Cr Clr Drug Dosing Est GFR ( Amer) Est GFR (Non-Af Amer) BUN/Creatinine Ratio Glucose POC Glucose 227 H 253 H Calcium Total Bilirubin 0.3 Direct Bilirubin < 0.1 AST 13 L ALT 14 Alkaline Phosphatase 95 Total Protein 5.4 L Albumin 2.2 L Lipase 62 L Specimen Hemolysis 06/04/18 06/04/18 06/05/18 17:55 22:04 00:51 WBC RBC Hgb Hct MCV MCH MCHC RDW Std Deviation RDW Coeff of Kami Plt Count MPV Immature Gran % (Auto) Neut % (Auto) Lymph % (Auto) [place] % (Auto) Eos % (Auto) Baso % (Auto) Immature Gran # (Auto) Neut # (Auto) Lymph # (Auto) [place] # (Auto) Eos # (Auto) Baso # (Auto) Sodium Potassium Chloride Carbon Dioxide Anion Gap BUN Creatinine Est Cr Clr Drug Dosing Est GFR ( Amer) Est GFR (Non-Af Amer) BUN/Creatinine Ratio Glucose POC Glucose 151 H 111 H 160 H Calcium Total Bilirubin Direct Bilirubin AST ALT Alkaline Phosphatase Total Protein Albumin Lipase Specimen Hemolysis 06/05/18 06/05/18 06/05/18 06:12 06:40 06:40 WBC 14.70 H RBC 3.60 L Hgb 10.8 L Hct 33.1 L MCV 91.9 MCH 30.0 MCHC 32.6 RDW Std Deviation 43.8 RDW Coeff of Kami 13.0 Plt Count 287 MPV 10.2 Immature Gran % (Auto) 0.6 Neut % (Auto) 85.1 Lymph % (Auto) 9.9 Atlantic % (Auto) 4.2 Eos % (Auto) 0.1 Baso % (Auto) 0.1 Immature Gran # (Auto) 0.09 H Neut # (Auto) 12.51 H Lymph # (Auto) 1.45 Atlantic # (Auto) 0.62 H Eos # (Auto) 0.01 Baso # (Auto) 0.02 Sodium 135 L Potassium 4.6 Chloride 107 Carbon Dioxide 15 L Anion Gap 13.0 H BUN 43 H Creatinine 2.58 H Est Cr Clr Drug Dosing 34.2 Est GFR ( Amer) 32.9 Est GFR (Non-Af Amer) 28.4 BUN/Creatinine Ratio 16.7 Glucose 231 H POC Glucose 238 H Calcium 7.8 L Total Bilirubin Direct Bilirubin AST ALT Alkaline Phosphatase Total Protein Albumin Lipase Specimen Hemolysis Medications Administered Dronabinol (Marinol) 5 mg PO BID [facility] Stop: 07/04/18 12:59 Last Admin: 06/05/18 08:46 Dose: 5 mg Admin: 06/04/18 23:13 Dose: 5 mg Admin: 06/04/18 13:20 Dose: 5 mg Heparin Sodium (Porcine) (Heparin Sodium (Porcine)) 5,000 units SQ Q12 JACKI Stop: 07/02/18 20:59 Last Admin: 06/05/18 08:47 Dose: 5,000 units Admin: 06/04/18 22:12 Dose: 5,000 units Admin: 06/04/18 08:25 Dose: 5,000 units Admin: 06/03/18 20:19 Dose: Not Given Admin: 06/03/18 08:22 Dose: Not Given Admin: 06/02/18 20:47 Dose: Not Given Hydralazine HCl (Hydralazine Hcl) 5 mg IV Q4H PRN PRN Reason: Hypertension Stop: 07/02/18 13:09 Last Admin: 06/05/18 07:06 Dose: 5 mg Admin: 06/04/18 23:12 Dose: 5 mg Admin: 06/04/18 06:59 Dose: 5 mg Admin: 06/03/18 22:52 Dose: 5 mg Admin: 06/03/18 10:08 Dose: 5 mg Admin: 06/02/18 20:36 Dose: 5 mg Prochlorperazine 5 mg/ Syringe 5 mls @ 5 mls/min IV Q4H PRN PRN Reason: Nausea And Vomiting Stop: 07/02/18 13:09 Last Admin: 06/04/18 06:18 Dose: 5 mls/min Admin: 06/04/18 00:07 Dose: 5 mls/min Admin: 06/03/18 19:17 Dose: 5 mls/min Admin: 06/03/18 12:46 Dose: 5 mls/min Admin: 06/02/18 20:51 Dose: 5 mls/min Potassium Chloride/Sodium Chloride (1/2 Nss + 20meq Kcl 1000ml) 20 meq in 1, 000 mls @ 120 mls/hr IV .Q8H20M JACKI Stop: 07/02/18 13:29 Last Admin: 06/05/18 05:57 Dose: 120 mls/hr Infusion: 06/05/18 05:57 Dose: 120 mls/hr Admin: 06/04/18 21:46 Dose: 120 mls/hr Infusion: 06/04/18 20:35 Dose: 120 mls/hr Admin: 06/04/18 12:15 Dose: 120 mls/hr Infusion: 06/04/18 12:15 Dose: 120 mls/hr Infusion: 06/04/18 05:04 Dose: 120 mls/hr Admin: 06/04/18 03:57 Dose: 120 mls/hr Infusion: 06/04/18 03:46 Dose: 80 mls/hr Admin: 06/03/18 15:16 Dose: 80 mls/hr Infusion: 06/03/18 15:15 Dose: Admin: 06/03/18 02:10 Dose: 80 mls/hr Infusion: 06/03/18 02:10 Dose: 80 mls/hr Admin: 06/02/18 14:30 Dose: 80 mls/hr Lorazepam (Ativan) 0.5 mg in 1 mls @ 1 mls/min IV TID [facility] Stop: 07/02/18 14:14 Last Admin: 06/05/18 08:47 Dose: 1 mls/min Admin: 06/04/18 21:45 Dose: 1 mls/min Admin: 06/04/18 15:03 Dose: 1 mls/min Admin: 06/04/18 08:23 Dose: 1 mls/min Admin: 06/03/18 20:29 Dose: 1 mls/min Admin: 06/03/18 14:09 Dose: 1 mls/min Admin: 06/03/18 08:26 Dose: 1 mls/min Admin: 06/02/18 20:48 Dose: 1 mls/min Admin: 06/02/18 14:29 Dose: Not Given Insulin Aspart (Novolog Flexpen) 0 units SC Q6 [facility] Stop: 07/04/18 05:59 Last Admin: 06/05/18 06:15 Dose: 4 units Admin: 06/05/18 00:59 Dose: 1 units Admin: 06/04/18 18:00 Dose: 1 units Admin: 06/04/18 12:25 Dose: 4 units Admin: 06/04/18 05:57 Dose: 2 units Insulin Glargine (Lantus Solostar Pen) 0 units SC BID [facility]; Protocol Stop: 07/04/18 20:59 Last Admin: 06/05/18 08:49 Dose: 10 units Admin: 06/04/18 22:11 Dose: 5 units Metoclopramide HCl (Reglan) 5 mg IV QID [facility] Stop: 07/02/18 14:14 Last Admin: 06/05/18 08:48 Dose: 5 mg Admin: 06/04/18 21:46 Dose: 5 mg Admin: 06/04/18 17:26 Dose: 5 mg Admin: 06/04/18 13:22 Dose: 5 mg Admin: 06/04/18 08:23 Dose: 5 mg Admin: 06/03/18 20:29 Dose: 5 mg Admin: 06/03/18 17:00 Dose: 5 mg Admin: 06/03/18 12:46 Dose: 5 mg Admin: 06/03/18 08:26 Dose: 5 mg Admin: 06/02/18 20:40 Dose: 5 mg Admin: 06/02/18 17:06 Dose: 5 mg Admin: 06/02/18 14:30 Dose: 5 mg Ondansetron HCl (Zofran Odt) 4 mg PO Q4H PRN PRN Reason: Nausea Stop: 07/02/18 13:09 Last Admin: 06/04/18 23:12 Dose: 4 mg Admin: 06/04/18 06:58 Dose: 4 mg Admin: 06/03/18 15:15 Dose: 4 mg Admin: 06/03/18 06:24 Dose: 4 mg Admin: 06/02/18 23:26 Dose: 4 mg Sertraline HCl (Zoloft) 50 mg PO DAILY JACKI Stop: 07/03/18 08:59 Last Admin: 06/05/18 08:49 Dose: 50 mg Admin: 06/04/18 08:26 Dose: 50 mg Admin: 06/03/18 08:26 Dose: 50 mg
--- NOTE | 2018-06-05 12:33 | Pharmacy Report ---
Pharmacy Glycemic Short Note 2 - Date of Service June 05, 2018 - Glycemic Short BSG Results (Last 24 hours): 06/04/18 06/04/18 06/04/18 12:47 17:55 22:04 Glucose POC Glucose 253 H 151 H 111 H 06/05/18 06/05/18 06/05/18 00:51 06:12 06:40 Glucose 231 H POC Glucose 160 H 238 H 06/05/18 11:55 Glucose POC Glucose 242 H ASSESSMENT: * Mr. De Los Santos received 26 units of insulin yesterday, 06/04/18. BSGs over the previous 24hrs have largely been uncontrolled: [phone]/dL. He is still NPO, I surmise the hyperglycemia is due to a basal deficiency. Prior to the pharmacy glycemic consult, he was receiving 5 units of lantus BID for 2 days. He likely requires 10-15units BID lantus. * Pursuant to previous admissions, he *does not* tolerate large doses of once daily lantus. Ergo, attempting the split lantus dose PLAN FOR INPATIENT GLYCEMIC CONTROL: * Basal insulin * Lantus scale SQ BID * BSGs <160mg/dL give 5 units * BSGs >/=160mg/dL give 10 units * Bolus insulin * NovoLog per scale ACHS or Q6hrs while NPO * Goal Range: Low 110 mg/dL - High 140 mg/dL * Correction Factor: 25 mg/dL/unit * Nutritional / Prandial insulin per carb ratio of 1 unit per 10 grams CHO consumed
--- NOTE | 2018-06-05 17:25 | Gastroenterology Progress Note ---
Date of Service June 05, 2018 Subjective Pt reports prompt improvement with IV emend. No retching today, agustín clears. No abd pain. On exam, he is visibly more comfortable. A/P: Cont IV reglan 10 TID. Hold Marinol. May use IV macrolide if persistent symptoms. IV PPI Physical Exam 2 Vital Signs (Past 24 Hours): Last Vital Signs Temp 37.1 C 06/05/18 15:06 Pulse 71 06/05/18 16:44 Resp 16 06/05/18 15:06 BP 146/80 H 06/05/18 16:44 Pulse Ox 94 06/05/18 15:06
[2018-06-05] MEDS: PANTOprazole 40 MG in SYRINGE 0 ML IV SCH (20:22)
[2018-06-06] MEDS: CARBOHYDRATES FOR HYPOGLYCEMIA PO PRN ×2 (05:28→05:45)
[2018-06-06] MEDS: SODIUM CHLOR 0.45% + 20MEQ KCL 20 MEQ/1,000 ML BAG IV SCH ×2 (06:35→15:40)
--- NOTE | 2018-06-06 07:01 | Family Medicine Progress Note ---
Date of Service June 06, 2018 Assessment & Plan (1) Nausea & vomitinM with DM1 on insulin pump, gastroparesis, CKD, HTN presents with a one day history of Nausea and Vomiting. Pt received IV Labetalol, 0.5mg Ativan, 10mg Compazine and 1L NSS bolus in the ER with improvement of symptoms. Pt was admitted continued inability to tolerate PO and KRYSTAL on CKD. #Nausea and Vomiting 2/2 to known Gastroparesis vs cyclic vomiting syndrome Known gastroparesis with multiple admissions here and in [facility], typically resolves after 48hrs IVF & meds, has an evaluation for Gastroparesis at [facility] on July 10. States he takes Valium 5mg BID and Compazine Per Rectum for nausea (didn't take any Compazine before coming in). Per patient last episode lasted a week and nothing made him feel better besides supportive therapy and time. NPO with IVF as below for KRYSTAL advance diet as tolerated Normal QTc (Apr 2018 was 460) 4mg ODT Zofran Q4H PRN Nausea 5mg IV Compazine Q4H PRN Nausea or Vomiting 0.5mg Ativan IV BID PRN 0.5mg Ativan IV TID JACKI Defer to [facility] for outpatient treatment. per uptodate could consider a trial of triptan abortive therapy for cvs If this is [facility] supportive therapy we may have to let the episode run its course - diet advanced to full liquids on 06/06/2018 and continue to advance as tolerated - currently on Reglan 10mg IV TID per GI recs - Marinol Discontinued per GI recs #KRYSTAL on CKD Stage 3 (Creatinine 2.5 today, baseline 1.5-1.8) Creatinine 2.09 Apr 2018 for KRYSTAL, 2.82 today, baseline 1.5-1.8. given 1L NSS in the ER, -nephro consulted appreciate recs -1/2NSS + 20meqKCL and increased rate from 120mls/hr to 150mls/hr. (64kg, pt previously edematous at [place] from too many fluids. ) -Creat today 2.82, most likely pre-renal in setting of loss of fluids from emesis, will treat with 1L NSS Bolus and increasing rate as mentioned above -will continue to trend -Renal U/S and UA ordered #Leukocytosis (active) pt arrived with a wbc 13.5 peaked to 22.50, today 14.19 likely 2/2 to demargination from vomiting, pt firmly denies si/syx of acute infectious process. -Resolving, continue to trend cbc # HTN Doesn't measure BPs at home. Continue holding Lisinopril 5mg PO Daily 2/2 krystal Will add on 5mg PRN Q4H Hydralazine for SBP >170 and DBP >100. #CKD Stage 3 Pt and dad wasn't aware he was supposed to get plugged into nephrology near [address]. -will obtain outpt followup #DM1 On insulin pump, will use for DM1 coverage, pt knowledgeable about disease course, reports sugars 120-150 before coming to hospital. HBA1C was 10.5 on 02/2018, 8.1 today -placed glycemic consult following recs #Diabetic Retinopathy Pt gets regular eye injections for detached retina. Just got an injection on Thursday that made his eye red. This is par for the course for his injections. No visual changes or difficulties. #Anxiety Med rec states 5mg BID Valium, will hold and treat with Ativan as above. c/w Sertraline daily. FENA: IVF as above NPO for now DVT PPX: Dispo:Obs to Med Surg. Lives in [place], here visiting family. FULL CODE. Supervising Physician Co-Signing Physician Notes I personally examined the patient and verified all julien points of history and exam, discussed case, and agree with decision making with Dr Garg. He is tolerating clears fairly well, and believes he could tolerate a full liquid diet. He believes he starting to turn the corner. We discussed his creatinine, renal ultrasound, and plan Vitals noted, in general he is resting comfortably no distress. Breathing is unlabored without accessory muscle use. Skin shows no rashes no pallor or icterus. Intractable nausea and vomiting related to diabetic gastroparesisthe Emend seems to have helped quite a bit. Continue additional meds as ordered per GI ( input greatly appreciated), continue supportive care, slowly advance diet. Acute kidney injury superimposed on CKDmost likely related to dehydration from above, given that he worsens today, renal ultrasound and urinalysis were checked , urinalysis still pending but renal ultrasound without much of any significant telling findings. I did discuss with him the full bladder, although it is not clear he is really having any urinary retention since there was no hydronephrosis and he does not seem to show symptoms of BPH. We discussed following post void residuals via bladder scan and ensuring he feels like he is clearing his bladder well. That said, it still most likely related to volume depletion given his nausea vomiting and poor oral intake. We have given him an additional bolus of saline and increased his maintenance rate to 150 an hour. We will follow-up a basic metabolic panel tomorrow. He is not on any nephrotoxins there are no other clear root causes of this, so if it is not corrected with additional volume, and it is not clear that its any sort of BPH related obstruction, then a nephrology consult tomorrow may be needed. DVT prophylaxisheparin subcu Otherwise as above Subjective Mr. De Los Santos states he feels better today and has less nausea with no episodes of vomiting. He states he was able to tolerate clear liquids. He denies diarrhea, chest pain, shortness of breath, fever, chills. Physical Exam 2 Vital Signs (Past 24 Hours): Last Vital Signs Temp 37.1 C 06/05/18 22:44 Pulse 88 06/06/18 04:00 Resp 18 06/05/18 22:44 BP 156/82 H 06/06/18 04:00 Pulse Ox 95 06/05/18 22:44 Constitutional: + thin, cooperative and comfortable Eyes: + anicteric sclerae and EOM intact bilaterally Neck: normal visual inspection and trachea midline Respiratory: normal respiratory effort, lungs clear to auscultation Cardiovascular: RRR, no murmur, no edema Gastrointestinal (Abdomen): Inspection/Auscultation: normal bowel sounds Percussion/Palpation: abdomen soft; abdomen nontender, no guarding and abdomen not rigid Musculoskeletal: Head/Neck/Chest: normocephalic and head atraumatic Skin: no rashes, warm and dry Neurologic: moves all extremities and awake Psychiatric: Orientation: oriented x 3 Results & Data Laboratory Results Laboratory Results - last 24 hr 06/05/18 06/05/18 06/05/18 11:55 16:42 20:19 WBC RBC Hgb Hct MCV MCH MCHC RDW Std Deviation RDW Coeff of Kami Plt Count MPV Immature Gran % (Auto) Neut % (Auto) Lymph % (Auto) [place] % (Auto) Eos % (Auto) Baso % (Auto) Immature Gran # (Auto) Neut # (Auto) Lymph # (Auto) [place] # (Auto) Eos # (Auto) Baso # (Auto) Sodium Potassium Chloride Carbon Dioxide Anion Gap BUN Creatinine Est Cr Clr Drug Dosing Est GFR ( Amer) Est GFR (Non-Af Amer) BUN/Creatinine Ratio Glucose POC Glucose 242 H 211 H 163 H Calcium 06/06/18 06/06/18 06/06/18 05:23 05:24 05:43 WBC RBC Hgb Hct MCV MCH MCHC RDW Std Deviation RDW Coeff of Kami Plt Count MPV Immature Gran % (Auto) Neut % (Auto) Lymph % (Auto) [place] % (Auto) Eos % (Auto) Baso % (Auto) Immature Gran # (Auto) Neut # (Auto) Lymph # (Auto) [place] # (Auto) Eos # (Auto) Baso # (Auto) Sodium Potassium Chloride Carbon Dioxide Anion Gap BUN Creatinine Est Cr Clr Drug Dosing Est GFR ( Amer) Est GFR (Non-Af Amer) BUN/Creatinine Ratio Glucose POC Glucose 35 L* 35 L* 54 L* Calcium 06/06/18 06/06/18 06/06/18 06:02 06:53 06:53 WBC 14.19 H RBC 3.53 L Hgb 10.5 L Hct 32.5 L MCV 92.1 MCH 29.7 MCHC 32.3 RDW Std Deviation 43.6 RDW Coeff of Kami 12.9 Plt Count 332 MPV 8.9 Immature Gran % (Auto) 0.4 Neut % (Auto) 82.1 Lymph % (Auto) 9.9 [place] % (Auto) 7.3 Eos % (Auto) 0.2 Baso % (Auto) 0.1 Immature Gran # (Auto) 0.06 H Neut # (Auto) 11.66 H Lymph # (Auto) 1.40 [place] # (Auto) 1.03 H Eos # (Auto) 0.03 Baso # (Auto) 0.01 Sodium 138 Potassium 4.1 Chloride 107 Carbon Dioxide 19 L Anion Gap 11.0 BUN 41 H Creatinine 2.82 H Est Cr Clr Drug Dosing 31.3 Est GFR ( Amer) 29.5 Est GFR (Non-Af Amer) 25.5 BUN/Creatinine Ratio 14.6 Glucose 139 H POC Glucose 91 Calcium 7.6 L 06/06/18 07:25 WBC RBC Hgb Hct MCV MCH MCHC RDW Std Deviation RDW Coeff of Kami Plt Count MPV Immature Gran % (Auto) Neut % (Auto) Lymph % (Auto) [place] % (Auto) Eos % (Auto) Baso % (Auto) Immature Gran # (Auto) Neut # (Auto) Lymph # (Auto) [place] # (Auto) Eos # (Auto) Baso # (Auto) Sodium Potassium Chloride Carbon Dioxide Anion Gap BUN Creatinine Est Cr Clr Drug Dosing Est GFR ( Amer) Est GFR (Non-Af Amer) BUN/Creatinine Ratio Glucose POC Glucose 140 H Calcium Medications Administered Heparin Sodium (Porcine) (Heparin Sodium (Porcine)) 5,000 units SQ Q12 JACKI Stop: 07/02/18 20:59 Last Admin: 06/05/18 20:46 Dose: 5,000 units Admin: 06/05/18 08:47 Dose: 5,000 units Admin: 06/04/18 22:12 Dose: 5,000 units Admin: 06/04/18 08:25 Dose: 5,000 units Admin: 06/03/18 20:19 Dose: Not Given Admin: 06/03/18 08:22 Dose: Not Given Admin: 06/02/18 20:47 Dose: Not Given Hydralazine HCl (Hydralazine Hcl) 5 mg IV Q4H PRN PRN Reason: Hypertension Stop: 07/02/18 13:09 Last Admin: 06/05/18 22:56 Dose: 5 mg Admin: 06/05/18 15:24 Dose: 5 mg Admin: 06/05/18 07:06 Dose: 5 mg Admin: 06/04/18 23:12 Dose: 5 mg Admin: 06/04/18 06:59 Dose: 5 mg Admin: 06/03/18 22:52 Dose: 5 mg Admin: 06/03/18 10:08 Dose: 5 mg Admin: 06/02/18 20:36 Dose: 5 mg Prochlorperazine 5 mg/ Syringe 5 mls @ 5 mls/min IV Q4H PRN PRN Reason: Nausea And Vomiting Stop: 07/02/18 13:09 Last Admin: 06/04/18 06:18 Dose: 5 mls/min Admin: 06/04/18 00:07 Dose: 5 mls/min Admin: 06/03/18 19:17 Dose: 5 mls/min Admin: 06/03/18 12:46 Dose: 5 mls/min Admin: 06/02/18 20:51 Dose: 5 mls/min Potassium Chloride/Sodium Chloride (1/2 Nss + 20meq Kcl 1000ml) 20 meq in 1, 000 mls @ 120 mls/hr IV .Q8H20M JACKI Stop: 07/02/18 13:29 Last Admin: 06/06/18 06:35 Dose: 120 mls/hr Infusion: 06/06/18 06:31 Dose: 120 mls/hr Admin: 06/05/18 22:11 Dose: 120 mls/hr Infusion: 06/05/18 22:11 Dose: 120 mls/hr Admin: 06/05/18 14:50 Dose: 120 mls/hr Infusion: 06/05/18 14:50 Dose: 120 mls/hr Admin: 06/05/18 14:49 Dose: 120 mls/hr Infusion: 06/05/18 14:17 Dose: 120 mls/hr Admin: 06/05/18 05:57 Dose: 120 mls/hr Infusion: 06/05/18 05:57 Dose: 120 mls/hr Admin: 06/04/18 21:46 Dose: 120 mls/hr Infusion: 06/04/18 20:35 Dose: 120 mls/hr Admin: 06/04/18 12:15 Dose: 120 mls/hr Infusion: 06/04/18 12:15 Dose: 120 mls/hr Infusion: 06/04/18 05:04 Dose: 120 mls/hr Admin: 06/04/18 03:57 Dose: 120 mls/hr Infusion: 06/04/18 03:46 Dose: 80 mls/hr Admin: 06/03/18 15:16 Dose: 80 mls/hr Infusion: 06/03/18 15:15 Dose: Admin: 06/03/18 02:10 Dose: 80 mls/hr Infusion: 06/03/18 02:10 Dose: 80 mls/hr Admin: 06/02/18 14:30 Dose: 80 mls/hr Lorazepam (Ativan) 0.5 mg in 1 mls @ 1 mls/min IV TID JACKI Stop: 07/02/18 14:14 Last Admin: 06/05/18 20:20 Dose: 1 mls/min Admin: 06/05/18 13:48 Dose: 1 mls/min Admin: 06/05/18 08:47 Dose: 1 mls/min Admin: 06/04/18 21:45 Dose: 1 mls/min Admin: 06/04/18 15:03 Dose: 1 mls/min Admin: 06/04/18 08:23 Dose: 1 mls/min Admin: 06/03/18 20:29 Dose: 1 mls/min Admin: 06/03/18 14:09 Dose: 1 mls/min Admin: 06/03/18 08:26 Dose: 1 mls/min Admin: 06/02/18 20:48 Dose: 1 mls/min Admin: 06/02/18 14:29 Dose: Not Given Pantoprazole Sodium 40 mg/ (Syringe) 10 mls @ 5 mls/min IV BID [facility] Stop: 07/05/18 20:59 Last Admin: 06/05/18 20:22 Dose: 5 mls/min Insulin Aspart (Novolog Flexpen) [address] [facility] Stop: 07/05/18 16:59 Last Admin: 06/06/18 08:42 Dose: Not Given Admin: 06/05/18 20:50 Dose: 1 units Admin: 06/05/18 17:58 Dose: 3 units Metoclopramide HCl (Reglan) [address] [facility] Stop: 07/05/18 20:59 Last Admin: 06/05/18 20:22 Dose: 10 mg Miscellaneous (Carbohydrates For Hypoglycemia) 15 - 30 gm PO UD PRN PRN Reason: Hypoglycemia Treatment Stop: 07/02/18 13:27 Last Admin: 06/06/18 05:45 Dose: 15 gm Admin: 06/06/18 05:28 Dose: 30 gm Ondansetron HCl (Zofran Odt) 4 mg PO Q4H PRN PRN Reason: Nausea Stop: 07/02/18 13:09 Last Admin: 06/04/18 23:12 Dose: 4 mg Admin: 06/04/18 06:58 Dose: 4 mg Admin: 06/03/18 15:15 Dose: 4 mg Admin: 06/03/18 06:24 Dose: 4 mg Admin: 06/02/18 23:26 Dose: 4 mg Sertraline HCl (Zoloft) 50 mg PO DAILY JACKI Stop: 07/03/18 08:59 Last Admin: 06/05/18 08:49 Dose: 50 mg Admin: 06/04/18 08:26 Dose: 50 mg Admin: 06/03/18 08:26 Dose: 50 mg
[2018-06-06 07:05] LABS: Basophils # (auto) 0.01 K/uL (0-0.2); Basophils % (auto) 0.1 %; Eosinophils # (auto) 0.03 K/uL (0-0.5); Eosinophils % (auto) 0.2 %; Hematocrit (blood only) 32.5 % (42-52); Hemoglobin 10.5 g/dL (14.0-18.0); Immature Granulocytes # (auto) 0.06 K/uL (0.00-0.02); Immature Granulocytes % (auto) 0.4 %; Lymphocytes % (auto) 9.9 %; Mean Corpuscular Hgb Conc 32.3 g/dL (32-36); Mean Corpuscular Volume 92.1 fL (80-100); Mean Platelet Volume 8.9 fL (7.4-10.4); Monocytes # (auto) 1.03 K/uL (0.11-0.59); Monocytes % (auto) 7.3 %; Neutrophils # (auto) 11.66 K/uL (1.4-6.5); Neutrophils % (auto) 82.1 %; Platelet Count 332 K/uL (130-400); RDW Coefficient of Variation 12.9 % (11.5-14.5); RDW Standard Deviation 43.6 fL (36.4-46.3); Red Blood Count 3.53 M/uL (4.7-6.1); White Blood Count 14.19 K/uL (4.8-10.8)
[2018-06-06 07:42] LABS: BUN Creatinine Ratio 14.6 (10-20); Calcium 7.6 mg/dl (8.5-10.1); Creatinine Clr Calc Pharmacy 31.3 ml/min; Est GFR (African American) 29.5; Est GFR (Non-African American) 25.5; Potassium 4.1 mmol/L (3.5-5.1)
[2018-06-06] MEDS: INSULIN ASPART 100 UNITS/ML 3 ML PEN SC SCH ×4 (08:42→21:03)
[2018-06-06] MEDS: METOCLOPRAMIDE HCL INJ 5 MG/ML 2 ML VIAL IV SCH ×3 (09:09→21:04)
[2018-06-06] MEDS: PANTOprazole 40 MG in SYRINGE 0 ML IV SCH ×2 (09:09→21:04)
[2018-06-06] MEDS: LORazepam 0.5 MG/1 ML VIAL IV SCH ×3 (09:09→21:02)
[2018-06-06] MEDS: SERTRALINE HCL 50 MG TABLET PO SCH (09:10)
[2018-06-06] MEDS: HEPARIN SOD 5,000 UNIT/0.5 ML VIAL SQ SCH ×2 (09:11→21:02)
--- NOTE | 2018-06-06 09:43 | Ultrasound Report ---
US renal/blad retro comp HISTORY: 47 years-old Male worsening renal failure acute renal failure COMPARISON: Renal ultrasound 04/30/2018, CT abdomen and pelvis 11/26/2017 TECHNIQUE: Multiple real-time sonographic images of the kidneys and urinary bladder were obtained ass essing grayscale appearance and color flow FINDINGS: Right kidney measures 12.7 cm in length. 7 mm nonobstructing calculus of the interpolar right kidney. Slightly increased echogenicity of the right renal parenchyma redemonstrated. Trace perinephric cristhian a. The left kidney also demonstrates mildly increased echogenicity measuring up to 11.9 cm in length. 8 mm cyst of the inferior pole left kidney. No left-sided renal calculi or hydronephrosis. Bilateral ureteral jets noted. Urinary bladder is unremarkable. IMPRESSION: 1. Increased echogenicity of the bilateral kidneys redemonstrated suggestive of chronic medical renal disease. 2. 7 mm nonobstructing calculus of the inferior pole right kidney. 3. Mild urinary bladder distention. The above report was generated using voice recognition software. It may contain grammatical, syntax o r spelling errors. Electronically signed by: Ti Martinez M.D. 06/06/2018 9:41 AM
[2018-06-06] MEDS ORDERED: SODIUM CHLORIDE 0.9% 1000ML 1,000 ML IV ONE (09:52)
[2018-06-06] MEDS: HydrALAZINE HCL 20 MG/ML VIAL IV PRN (10:16)
--- NOTE | 2018-06-06 15:24 | Pharmacy Report ---
Glycemic Control Progress Note - Date of Service June 06, 2018 - Scope Glycemic Pharmacist consulted for glycemic control to write orders per [facility] inpatient glycemic control protocol. - Objective Accuchecks BSG(last 24 hours):: 06/05/18 06/05/18 06/06/18 16:42 20:19 05:23 Glucose POC Glucose 211 H 163 H 35 L* 06/06/18 06/06/18 06/06/18 05:24 05:43 06:02 Glucose POC Glucose 35 L* 54 L* 91 06/06/18 06/06/18 06/06/18 06:53 07:25 11:41 Glucose 139 H POC Glucose 140 H 117 H HbA1c:: Hemoglobin A1c 8.4 % (4.5-5.6) H 06/03/18 06:54 - Recent Pertinent Medications The patient is currently receiving: * Basal insulin: Lantus 15 units in the morning and then 10 units in the evening * Correctional Insulin: Novolog Correction per scale ACHS Goal Range: Low 110 mg/dL - High 140 mg/dL Correction Factor: 25 mg/dL/unit * Prandial insulin: Per carb ratio of 1 unit per 10 grams CHO consumed - Outpatient Anti-Diabetic Meds Humalog pump - Assessment & Plan ASSESSMENT: * See progress note from 06/04/18 for more background info, in short: * Pt receiving SQ basal bolus insulin regimen for hyperglycemia secondary to baseline DM (outpatient regimen on hold) and stress from gastroparesis/cyclic vomiting syndrome - patient not consuming much food. * Patient is currently receiving an average of 38 units of insulin per day * 25 units of basal insulin * 13 units of prandial/correctional insulin * BSGs ranging 163 - 238 mg/dl over the past 24hrs * Changes needed to insulin regimen: * AM Fasting BSG = 35 mg/dl. This is significantly below goal range for patient based on inpatient targets and co-morbidities. Therefore Basal will be held currently to allow for patient to recover. Patient consumed 6 OJs and blood sugar did increase to 140 mg/dL. HOWEVER, lunch blood sugar was only 117 mg/dL. Will provide two scales for this evening for Lantus- MAX dose is 15 units. Min is 5 units. * Post-prandial BSGs cannot truly be evaluated continue current regimen. Did speak with resident about perhaps starting dextrose infusion if patient does not consume much food in next 24 hours. PLAN FOR INPATIENT GLYCEMIC CONTROL: * START Lantus 5 units with dinner (10 units if blood sugar over 160 mg/dL) and 5 units with bedtime if blood sugar over 200 mg/dL. * Continuing correction factor 25 mg/dl/unit * Continuing carb ratio of 1 unit per 10 grams CHO consumed * Continuing goal range to Low 110 mg/dL - High 140 mg/dL * Please note that the plan above was derived based on current level of insulin resistance and hospital stress. These recommendations are appropriate for inpatient admission only. Plan of care upon discharge will need to be reassessed to avoid potential outpatient hypo/hyperglycemia. Thank you.
[2018-06-06] MEDS ORDERED: INSULIN GLARGINE SOLOSTAR 100 UNITS/ML 3 ML PEN SC SCH ×2 (16:30→21:00)
[2018-06-07] MEDS: SODIUM CHLOR 0.45% + 20MEQ KCL 20 MEQ/1,000 ML BAG IV SCH ×4 (00:14→22:06)
[2018-06-07] MEDS ORDERED: INSULIN ASPART 100 UNITS/ML 3 ML PEN SC SCH (02:00)
[2018-06-07 06:22] LABS: Basophils # (auto) 0.02 K/uL (0-0.2); Basophils % (auto) 0.2 %; Eosinophils # (auto) 0.26 K/uL (0-0.5); Eosinophils % (auto) 2.5 %; Hemoglobin 9.2 g/dL (14.0-18.0); Immature Granulocytes # (auto) 0.05 K/uL (0.00-0.02); Immature Granulocytes % (auto) 0.5 %; Lymphocytes # (auto) 2.12 K/uL (1.2-3.4); Lymphocytes % (auto) 20.1 %; Mean Corpuscular Hgb Conc 32.9 g/dL (32-36); Mean Corpuscular Volume 91.2 fL (80-100); Mean Platelet Volume 9.1 fL (7.4-10.4); Monocytes % (auto) 11.4 %; Neutrophils % (auto) 65.3 %; Platelet Count 291 K/uL (130-400); RDW Coefficient of Variation 12.6 % (11.5-14.5); RDW Standard Deviation 42.3 fL (36.4-46.3); Red Blood Count 3.07 M/uL (4.7-6.1); White Blood Count 10.55 K/uL (4.8-10.8)
[2018-06-07 06:43] LABS: BUN Creatinine Ratio 12.9 (10-20); Calcium 7.3 mg/dl (8.5-10.1); Creatinine Clr Calc Pharmacy 38.4 ml/min; Est GFR (African American) 37.8; Est GFR (Non-African American) 32.6; Potassium 4.6 mmol/L (3.5-5.1)
[2018-06-07] MEDS ORDERED: INSULIN GLARGINE SOLOSTAR 100 UNITS/ML 3 ML PEN SC ONE (08:00)
[2018-06-07] MEDS: PANTOprazole 40 MG in SYRINGE 0 ML IV SCH ×2 (09:04→20:39)
[2018-06-07] MEDS: LORazepam 0.5 MG/1 ML VIAL IV SCH ×3 (09:04→20:39)
[2018-06-07] MEDS: HEPARIN SOD 5,000 UNIT/0.5 ML VIAL SQ SCH ×2 (09:10→20:45)
[2018-06-07] MEDS: INSULIN ASPART 100 UNITS/ML 3 ML PEN SC SCH ×4 (09:11→20:41)
--- NOTE | 2018-06-07 09:47 | Gastroenterology Progress Note ---
Date of Service June 07, 2018 Assessment & Plan (1) Diabetic gastroparesis: Pt is a 47 y/o male admitted w gastroparesis flare. Hx of esophagitis ( seen on EGD 02/2018, resolved after re-evaluated in 05/17/18). N/V symptoms have resolved, he responded well to Emend IV. - Continue present meds, convert Reglan back to PO form at home dose upon DC - Advance diet as tolerated - No new GI plans, will sign off; call if new questions/concerns arise. Present on Admission?: Yes Supervising Physician Co-Signing Physician Notes I have seen and examined the patient with RADHIKA Vaughn. 47 yo male with a gastoparesis flare that appears to be improving. Benign belly exam today. Agree with further plan of care as above. Subjective Pt feels well, denies any more n/v, no abd pain. Tolerating [place] diet now. Respiratory: no cough Cardiovascular: no chest pain Gastrointestinal: as per Subjective / HPI Physical Exam 2 Vital Signs (Past 24 Hours): Last Vital Signs Temp 36.4 C L 06/07/18 08:00 Pulse 90 06/07/18 08:00 Resp 18 06/07/18 08:00 BP 196/96 H 06/07/18 08:00 Pulse Ox 95 06/07/18 08:00 Constitutional: WD/WN, vitals as above well groomed, cooperative and comfortable Eyes: R sclera redness; pt reported just had surgery (Avastin injection) ENMT: external ear and nose normal, oropharynx normal Respiratory: normal respiratory effort, lungs clear to auscultation Cardiovascular: RRR, no murmur, no edema Gastrointestinal (Abdomen): normal bowel sounds, soft, nontender, no hepatosplenomegaly Skin: no rashes, warm and dry no jaundice Neurologic: Motor/Sensory: no asterixis Psychiatric: A+Ox3, euthymic affect Lymphatic: no lymphedema Results & Data Laboratory Results Laboratory Results - last 48 hr 06/05/18 06/05/18 06/05/18 11:55 16:42 20:19 WBC RBC Hgb Hct MCV MCH MCHC RDW Std Deviation RDW Coeff of Kami Plt Count MPV Immature Gran % (Auto) Neut % (Auto) Lymph % (Auto) [place] % (Auto) Eos % (Auto) Baso % (Auto) Immature Gran # (Auto) Neut # (Auto) Lymph # (Auto) [place] # (Auto) Eos # (Auto) Baso # (Auto) Sodium Potassium Chloride Carbon Dioxide Anion Gap BUN Creatinine Est Cr Clr Drug Dosing Est GFR ( Amer) Est GFR (Non-Af Amer) BUN/Creatinine Ratio Glucose POC Glucose 242 H 211 H 163 H Calcium 06/06/18 06/06/18 06/06/18 05:23 05:24 05:43 WBC RBC Hgb Hct MCV MCH MCHC RDW Std Deviation RDW Coeff of Kami Plt Count MPV Immature Gran % (Auto) Neut % (Auto) Lymph % (Auto) [place] % (Auto) Eos % (Auto) Baso % (Auto) Immature Gran # (Auto) Neut # (Auto) Lymph # (Auto) [place] # (Auto) Eos # (Auto) Baso # (Auto) Sodium Potassium Chloride Carbon Dioxide Anion Gap BUN Creatinine Est Cr Clr Drug Dosing Est GFR ( Amer) Est GFR (Non-Af Amer) BUN/Creatinine Ratio Glucose POC Glucose 35 L* 35 L* 54 L* Calcium 06/06/18 06/06/18 06/06/18 06:02 06:53 06:53 WBC 14.19 H RBC 3.53 L Hgb 10.5 L Hct 32.5 L MCV 92.1 MCH 29.7 MCHC 32.3 RDW Std Deviation 43.6 RDW Coeff of Kami 12.9 Plt Count 332 MPV 8.9 Immature Gran % (Auto) 0.4 Neut % (Auto) 82.1 Lymph % (Auto) 9.9 [place] % (Auto) 7.3 Eos % (Auto) 0.2 Baso % (Auto) 0.1 Immature Gran # (Auto) 0.06 H Neut # (Auto) 11.66 H Lymph # (Auto) 1.40 [place] # (Auto) 1.03 H Eos # (Auto) 0.03 Baso # (Auto) 0.01 Sodium 138 Potassium 4.1 Chloride 107 Carbon Dioxide 19 L Anion Gap 11.0 BUN 41 H Creatinine 2.82 H Est Cr Clr Drug Dosing 31.3 Est GFR ( Amer) 29.5 Est GFR (Non-Af Amer) 25.5 BUN/Creatinine Ratio 14.6 Glucose 139 H POC Glucose 91 Calcium 7.6 L 06/06/18 06/06/18 06/06/18 07:25 11:41 16:49 WBC RBC Hgb Hct MCV MCH MCHC RDW Std Deviation RDW Coeff of Kami Plt Count MPV Immature Gran % (Auto) Neut % (Auto) Lymph % (Auto) [place] % (Auto) Eos % (Auto) Baso % (Auto) Immature Gran # (Auto) Neut # (Auto) Lymph # (Auto) [place] # (Auto) Eos # (Auto) Baso # (Auto) Sodium Potassium Chloride Carbon Dioxide Anion Gap BUN Creatinine Est Cr Clr Drug Dosing Est GFR ( Amer) Est GFR (Non-Af Amer) BUN/Creatinine Ratio Glucose POC Glucose 140 H 117 H 133 H Calcium 06/06/18 06/07/18 06/07/18 20:25 02:07 06:07 WBC 10.55 RBC 3.07 L Hgb 9.2 L Hct 28.0 L MCV 91.2 MCH 30.0 MCHC 32.9 RDW Std Deviation 42.3 RDW Coeff of Kami 12.6 Plt Count 291 MPV 9.1 Immature Gran % (Auto) 0.5 Neut % (Auto) 65.3 Lymph % (Auto) 20.1 [place] % (Auto) 11.4 Eos % (Auto) 2.5 Baso % (Auto) 0.2 Immature Gran # (Auto) 0.05 H Neut # (Auto) 6.90 H Lymph # (Auto) 2.12 [place] # (Auto) 1.20 H Eos # (Auto) 0.26 Baso # (Auto) 0.02 Sodium Potassium Chloride Carbon Dioxide Anion Gap BUN Creatinine Est Cr Clr Drug Dosing Est GFR ( Amer) Est GFR (Non-Af Amer) BUN/Creatinine Ratio Glucose POC Glucose 130 H 94 Calcium 06/07/18 06/07/18 06:07 07:30 WBC RBC Hgb Hct MCV MCH MCHC RDW Std Deviation RDW Coeff of Kami Plt Count MPV Immature Gran % (Auto) Neut % (Auto) Lymph % (Auto) [place] % (Auto) Eos % (Auto) Baso % (Auto) Immature Gran # (Auto) Neut # (Auto) Lymph # (Auto) [place] # (Auto) Eos # (Auto) Baso # (Auto) Sodium 135 L Potassium 4.6 Chloride 108 H Carbon Dioxide 22 Anion Gap 5.0 BUN 30 H Creatinine 2.30 H D Est Cr Clr Drug Dosing 38.4 Est GFR ( Amer) 37.8 Est GFR (Non-Af Amer) 32.6 BUN/Creatinine Ratio 12.9 Glucose 153 H POC Glucose 192 H Calcium 7.3 L
--- NOTE | 2018-06-07 09:51 | Pharmacy Report ---
Pharmacy Glycemic Short Note 2 - Date of Service June 07, 2018 - Glycemic Short BSG Results (Last 24 hours): 06/06/18 06/06/18 06/06/18 11:41 16:49 20:25 Glucose POC Glucose 117 H 133 H 130 H 06/07/18 06/07/18 06/07/18 02:07 06:07 07:30 Glucose 153 H POC Glucose 94 192 H ASSESSMENT: 06/07 * Mr. De Los Santos received only 5 units of insulin yesterday (compared to 37 units the day prior) * He has not had any further episodes of hypoglycemia, but I'm concerned that BSGs will start to rise drastically if insulin is not increased. Fasting BSG is already up to 153 mg/dL this AM vs. 35 mg/dL yesterday. * Will aim for a basal dose of ~14 units/day, with a max of 17 units given today if BSGs are elevated. This is compared to 25 units of basal that caused the hypoglycemic episode. Of note, RN just called me and said that BSG up to 193 mg/dL - Lantus is being administered late d/t patient sleeping earlier. * He continues on full liquid diet (did not eat breakfast) and SCr has improved further today 06/06 * Pt receiving SQ basal bolus insulin regimen for hyperglycemia secondary to baseline DM (outpatient regimen on hold) and stress from gastroparesis/cyclic vomiting syndrome - patient not consuming much food. * Patient is currently receiving an average of 38 units of insulin per day * 25 units of basal insulin * 13 units of prandial/correctional insulin * BSGs ranging 163 - 238 mg/dl over the past 24hrs * Changes needed to insulin regimen: * AM Fasting BSG = 35 mg/dl. This is significantly below goal range for patient based on inpatient targets and co-morbidities. Therefore Basal will be held currently to allow for patient to recover. Patient consumed 6 OJs and blood sugar did increase to 140 mg/dL. HOWEVER, lunch blood sugar was only 117 mg/dL. Will provide two scales for this evening for Lantus- MAX dose is 15 units. Min is 5 units. * Post-prandial BSGs cannot truly be evaluated continue current regimen. Did speak with resident about perhaps starting dextrose infusion if patient does not consume much food in next 24 hours. PLAN FOR INPATIENT GLYCEMIC CONTROL: * Basal insulin * Lantus 7 units x 1 now, then * Lantus per scale SQ BID * BSG < 110, give 5 units * BSG 110 - 160, give 7 units * BSG > 160, give 10 units * Bolus insulin * NovoLog per scale ACHS or Q6hrs while NPO * Goal Range: Low 110 mg/dL - High 140 mg/dL * Correction Factor: 25 mg/dL/unit * Nutritional / Prandial insulin per carb ratio of 1 unit per 10 grams CHO consumed * Can plan to resume insulin pump prior to discharge
[2018-06-07] MEDS: METOCLOPRAMIDE HCL INJ 5 MG/ML 2 ML VIAL IV SCH ×3 (09:52→20:40)
[2018-06-07] MEDS: SERTRALINE HCL 50 MG TABLET PO SCH (12:14)
[2018-06-07] MEDS: HydrALAZINE HCL 20 MG/ML VIAL IV PRN (15:44)
--- NOTE | 2018-06-07 15:47 | Family Medicine Progress Note ---
Date of Service June 07, 2018 Assessment & Plan (1) Nausea & vomitinM with DM1 on insulin pump, gastroparesis, CKD, HTN presents with a one day history of Nausea and Vomiting. Pt received IV Labetalol, 0.5mg Ativan, 10mg Compazine and 1L NSS bolus in the ER with improvement of symptoms. Pt was admitted continued inability to tolerate PO and KRYSTAL on CKD. 1) Nausea and Vomiting - Known gastroparesis with multiple admissions here and in [facility] - typically resolves after 48hrs IVF & meds, has an evaluation for Gastroparesis at [place] on July 10. - States he takes Valium 5mg BID and Compazine Per Rectum for nausea (didn't take any Compazine before coming in). - Per patient last episode lasted a week and nothing made him feel better besides supportive therapy and time. - NPO with IVF as below for KRYSTAL advance diet as tolerated -Normal QTc (Apr 2018 was 460) 4mg ODT Zofran Q4H PRN Nausea 5mg IV Compazine Q4H PRN Nausea or Vomiting 0.5mg Ativan IV BID PRN 0.5mg Ativan IV TID JACKI - Defer to [facility] for outpatient treatment. per uptodate could consider a trial of triptan abortive therapy for cvs If this is CVS supportive therapy we may have to let the episode run its course - diet advanced to full liquids on 06/06/2018 and continue to advance as tolerated - currently on Reglan 10mg IV TID per GI recs 2)KRYSTAL on CKD Stage 3 Creatinine improving 2.39 today -1/2NSS + 20meqKCL and increased rate from 120mls/hr to 150mls/hr. (64kg, pt previously edematous at [place] from too many fluids. ) -will continue to trend 3) HTN Doesn't measure BPs at home. Continue holding Lisinopril 5mg PO Daily 2/2 krystal 5mg Hydralazine for SBP >170 and DBP >100. 4) CKD Stage 3 Spoke to patient about outpatient nephrology follow up 5) DM1 On insulin pump, will use for DM1 coverage, pt knowledgeable about disease course, reports sugars 120-150 before coming to hospital. HBA1C was 10.5 on 02/2018, 8.1 today -placed glycemic consult following recs 6) Anxiety Med rec states 5mg BID Valium, will hold and treat with Ativan as above. c/w Sertraline daily. FENA: IVF as above NPO for now DVT PPX: Dispo:Obs to Med Surg. Lives in [place], here visiting family. FULL CODE. Supervising Physician Co-Signing Physician Notes Attending attestation Pt seen and examined in concert with Dr. Núñez. In agreement with the documented findings as noted in the resident documentation with any exceptions or additions as noted here. Gradually improving malaise, nausea and vomiting. Tolerating present diet without complaint. Without abdominal pain at present. On examination, S1/S2 nl RRR no MCG, CTAB. Abd NT/ND BS +ve throughout. 47M with DM1 on insulin pump, gastroparesis, CKD, HTN presents with a one day history of Nausea and Vomiting. Pt received IV Labetalol, 0.5mg Ativan, 10mg Compazine and 1L NSS bolus in the ER with improvement of symptoms. Pt was admitted continued inability to tolerate PO and KRYSTAL on CKD. Intractable N/V in the setting of IDDM and gastroparesis - continue antiemetic regimen, glycemic control KRYSTAL on CKD III - baseline Cr ~1.6 - continue hydration, monitor BMP HTN - likely restart antihypertensives in AM if BMP improving IDDMI - continue glycemic monitoring with insulin pump for control Else as noted in resident documentation Subjective Mr. De Los Santos states he feels better today and has less nausea with no episodes of vomiting. He states he was able to tolerate clear liquids. He denies diarrhea, chest pain, shortness of breath, fever, chills, numbness/tingling, weakness. He is only taking his zofran PRN now and instead of every 4 hours he says he only needs it once or twice a day now. He feels he is improving similar to how his previous admissions have been. Physical Exam 2 Vital Signs (Past 24 Hours): Last Vital Signs Temp 36.9 C 06/07/18 15:00 Pulse 85 06/07/18 15:39 Resp 18 06/07/18 15:39 BP 183/105 H 06/07/18 15:39 Pulse Ox 93 06/07/18 15:39 Constitutional: well developed, well nourished, + ill appearing, + thin, cooperative and comfortable Eyes: normal visual garcia by confrontation, + anicteric sclerae and EOM intact bilaterally Neck: trachea midline, no thyromegaly normal visual inspection and trachea midline Thyroid: normal thyroid Respiratory: normal respiratory effort, lungs clear to auscultation Auscultation: lungs clear to auscultation bilaterally Cardiovascular: RRR, no murmur, no edema Heart Sounds: normal S1 and normal S2 Vessels: no JVD Extremities: no calf tenderness Gastrointestinal (Abdomen): normal bowel sounds, soft, nontender, no hepatosplenomegaly Inspection/Auscultation: normal bowel sounds Percussion /Palpation: abdomen soft; abdomen nontender, no guarding and abdomen not rigid Musculoskeletal: Head/Neck/Chest: normocephalic and head atraumatic Skin: no rashes, warm and dry Neurologic: moves all extremities and awake Psychiatric: A+Ox3, euthymic affect Orientation: oriented x 3 Affect: + flat affect Lymphatic: no cervical or axillary lymphadenopathy
[2018-06-07] MEDS: CARBOHYDRATES FOR HYPOGLYCEMIA PO PRN (16:49)
[2018-06-07] MEDS ORDERED: INSULIN GLARGINE SOLOSTAR 100 UNITS/ML 3 ML PEN SQ SCH (21:00)
[2018-06-08] MEDS: CARBOHYDRATES FOR HYPOGLYCEMIA PO PRN (03:04)
[2018-06-08] MEDS: SODIUM CHLOR 0.45% + 20MEQ KCL 20 MEQ/1,000 ML BAG IV SCH ×3 (04:03→11:14)
--- NOTE | 2018-06-08 07:12 | Family Medicine Progress Note ---
Date of Service June 08, 2018 Assessment & Plan (1) Nausea & vomitinM with DM1 on insulin pump, gastroparesis, CKD, HTN presents with a one day history of Nausea and Vomiting. Pt received IV Labetalol, 0.5mg Ativan, 10mg Compazine and 1L NSS bolus in the ER with improvement of symptoms. Pt was admitted continued inability to tolerate PO and KRYSTAL on CKD. 1) Nausea and Vomiting - Known gastroparesis with multiple admissions here and in [facility] - typically resolves after 48hrs IVF & meds, has an evaluation for Gastroparesis at [place] on July 10. - States he takes Valium 5mg BID and Compazine Per Rectum for nausea (didn't take any Compazine before coming in). - Per patient last episode lasted a week and nothing made him feel better besides supportive therapy and time. - NPO with IVF as below for KRYSTAL advance diet as tolerated -Normal QTc (Apr 2018 was 460) 4mg ODT Zofran Q4H PRN Nausea 5mg IV Compazine Q4H PRN Nausea or Vomiting 0.5mg Ativan IV BID PRN 0.5mg Ativan IV TID JACKI - Defer to [facility] for outpatient treatment. per uptodate could consider a trial of triptan abortive therapy for cvs If this is CVS supportive therapy we may have to let the episode run its course - diet advanced to full liquids on 06/06/2018 and continue to advance as tolerated - currently on Reglan 10mg IV TID per GI recs 2)KRYSTAL on CKD Stage 3 Creatinine improving 2.39 today -1/2NSS + 20meqKCL and increased rate from 120mls/hr to 150mls/hr. (64kg, pt previously edematous at [place] from too many fluids. ) -will continue to trend 3) HTN Doesn't measure BPs at home. Continue holding Lisinopril 5mg PO Daily 2/2 krystal 5mg Hydralazine for SBP >170 and DBP >100. 4) CKD Stage 3 Spoke to patient about outpatient nephrology follow up 5) DM1 On insulin pump, will use for DM1 coverage, pt knowledgeable about disease course, reports sugars 120-150 before coming to hospital. HBA1C was 10.5 on 02/2018, 8.1 today -placed glycemic consult following recs 6) Anxiety Med rec states 5mg BID Valium, will hold and treat with Ativan as above. c/w Sertraline daily. FENA: IVF as above NPO for now DVT PPX: Dispo:Obs to Med Surg. Lives in [place], here visiting family. FULL CODE. Subjective Mr. De Los Santos states he feels better today and has less nausea with no episodes of vomiting. He states he was able to tolerate clear liquids. He denies diarrhea, chest pain, shortness of breath, fever, chills. He is only taking his zofran PRN now and instead of every 4 hours he says he only needs it once or twice a day now. He feels he is improving similar to how his previous admissions have been. Physical Exam 2 Vital Signs (Past 24 Hours): Last Vital Signs Temp 36.8 C 06/07/18 23:33 Pulse 86 06/07/18 23:33 Resp 18 06/07/18 23:33 BP 136/70 06/07/18 23:33 Pulse Ox 95 06/07/18 23:33 Constitutional: well developed, well nourished, + ill appearing, + thin, cooperative and comfortable Eyes: normal visual garcia by confrontation, + anicteric sclerae and EOM intact bilaterally Neck: trachea midline, no thyromegaly normal visual inspection and trachea midline Thyroid: normal thyroid Respiratory: normal respiratory effort, lungs clear to auscultation Auscultation: lungs clear to auscultation bilaterally Cardiovascular: RRR, no murmur, no edema Heart Sounds: normal S1 and normal S2 Vessels: no JVD Extremities: no calf tenderness Gastrointestinal (Abdomen): normal bowel sounds, soft, nontender, no hepatosplenomegaly Inspection/Auscultation: normal bowel sounds Percussion /Palpation: abdomen soft; abdomen nontender, no guarding and abdomen not rigid Musculoskeletal: Head/Neck/Chest: normocephalic and head atraumatic Skin: no rashes, warm and dry Neurologic: moves all extremities and awake Psychiatric: A+Ox3, euthymic affect Orientation: oriented x 3 Affect: + flat affect Lymphatic: no cervical or axillary lymphadenopathy
[2018-06-08 07:31] LABS: Hematocrit (blood only) 27.4 % (42-52); Hemoglobin 9.4 g/dL (14.0-18.0); Mean Corpuscular Hgb Conc 34.3 g/dL (32-36); Mean Corpuscular Volume 89.5 fL (80-100); Mean Platelet Volume 8.7 fL (7.4-10.4); Platelet Count 304 K/uL (130-400); RDW Coefficient of Variation 12.6 % (11.5-14.5); RDW Standard Deviation 40.6 fL (36.4-46.3); Red Blood Count 3.06 M/uL (4.7-6.1); White Blood Count 11.41 K/uL (4.8-10.8)
[2018-06-08 07:59] LABS: BUN Creatinine Ratio 11.3 (10-20); Calcium 7.1 mg/dl (8.5-10.1); Creatinine Clr Calc Pharmacy 40.7 ml/min; Est GFR (African American) 40.5; Potassium 4.9 mmol/L (3.5-5.1)
[2018-06-08] MEDS: HEPARIN SOD 5,000 UNIT/0.5 ML VIAL SQ SCH (08:15)
[2018-06-08] MEDS: LORazepam 0.5 MG/1 ML VIAL IV SCH ×2 (08:15→13:56)
[2018-06-08] MEDS: METOCLOPRAMIDE HCL INJ 5 MG/ML 2 ML VIAL IV SCH ×2 (08:16→13:56)
[2018-06-08] MEDS: SERTRALINE HCL 50 MG TABLET PO SCH (08:16)
[2018-06-08] MEDS: PANTOprazole 40 MG in SYRINGE 0 ML IV SCH (08:16)
[2018-06-08] MEDS: INSULIN ASPART 100 UNITS/ML 3 ML PEN SC SCH ×2 (08:23→12:06)
[2018-06-08] MEDS ORDERED: AMLODIPINE BESYLATE 5 MG TAB PO ONE (10:38)
[2018-06-08] MEDS: HydrALAZINE HCL 20 MG/ML VIAL IV PRN (12:06)
--- NOTE | 2018-06-08 14:28 | Discharge Summary ---
Date of Service June 08, 2018 Admission HPI Per Admitting Provider 47M with DM1 on insulin pump, gastroparesis, CKD, HTN presents with a one day history of Nausea and Vomiting. Pt has multiple hospital admits in the past for gastroparesis. Pt lives in [place] and is here visiting family. He was here in Feb 2018 for similar issues and then in April for edema after a hospitalization in [place] for gastroparesis. Pt last vomited 30 min ago and again during my exam, vomit was dark and bile colored. Pt states that he didn' t take any of his compazine per rectum. He states that he takes Valium twice a day and compazine per rectum as needed for nausea and vomiting. He does also take Reglan PO QID. Pt states that he has not had diarrhea, nobody else in the family has GI symptoms (dad confirms this). His symptoms started after eating eggs and hull for breakfast and he did not partake in any meals. Denies eating too much on . Woke up yesterday morning () feeling normal. Pt present today with dad. ROS: No fevers, +cosntantly cold, no diarrhea, no chest pain ,no SOB, no skin rashes, no edema, + RED eye from recent injection, no eye pain, no vision changes, no joint pains, no muscle pain, no anxiety. SHx: Denies ETOH use. Admission Exam Per Admitting Provider Temp 36.6 C 06/02/18 07:32 Pulse 85 06/02/18 11:18 Resp 16 06/02/18 11:18 BP 154/91 H 06/02/18 11:18 Pulse Ox 98 06/02/18 08:52 Physical Exam: Gen: Pt is ill appearing. HEENT: Head - normocephalic and atraumatic. Pupils are equal, round, and reactive to light. Extraocular eye muscles are intact and sclera are anicteric. R. Eye: Diffuse conjunctival injection. Nose - moist nasal mucosa without discharge. Mouth - moist buccal mucosa. Oropharynx is nonerythematous and there is no tonsillar exudate or edema noted. Neck: Supple; no JVD, nuchal rigidity, cervical lymphadenopathy, or auscultated bruits. Heart: Regular rate and rhythm. There is a normal S1 and S2 with no murmurs, clicks, or gallops appreciated. Lungs: Clear to auscultation bilaterally with no wheezes, rales, or rhonchi. Abdomen: Soft, completely nontender, nondistended, with good bowel sounds. There are no palpable pulsatile masses or hepatosplenomegaly. There is no guarding, rigidity, or rebound noted. When patient sat up for lung ausculation he did throw up. Extremities: No evidence of cyanosis, clubbing, or edema. There are easily palpable peripheral pulses. Neuro:The patient is awake and alert, oriented to day, time, and place. Muscle strength is 5/5 in all 4 extremities. 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 There are no cerebellar signs. Principal Diagnosis Gastroparesis Discharge Exam Constitutional well developed, well nourished, + ill appearing, + thin, cooperative and comfortable Eyes normal visual garcia by confrontation, + anicteric sclerae and EOM intact bilaterally Neck trachea midline, no thyromegaly normal visual inspection and trachea midline Thyroid: normal thyroid Respiratory normal respiratory effort, lungs clear to auscultation Auscultation: lungs clear to auscultation bilaterally Cardiovascular RRR, no murmur, no edema Heart Sounds: normal S1 and normal S2 Vessels: no JVD Extremities: no calf tenderness Gastrointestinal (Abdomen) normal bowel sounds, soft, nontender, no hepatosplenomegaly Inspection/Auscultation: normal bowel sounds Percussion/Palpation: abdomen soft; abdomen nontender, no guarding and abdomen not rigid Musculoskeletal Head/Neck/Chest: normocephalic and head atraumatic Skin no rashes, warm and dry Neurologic moves all extremities and awake Psychiatric A+Ox3, euthymic affect Orientation: oriented x 3 Affect: + flat affect Lymphatic no cervical or axillary lymphadenopathy Discharge Data Allergies Allergy/AdvReac Type Severity Reaction Status Date / Time shellfish derived Allergy Severe anaphylaxis Verified 06/02/18 08:04 promethazine Allergy Intermediate itchy/hives Verified 06/02/18 08:04 Consultations 06/02/18 10:57 ED Decision to Admit Stat 06/04/18 12:59 Consult Gastroenterology Routine Ordered Studies 06/06/18 08:18 US renal/blad retro comp Routine Hospital Course (1) Nausea & vomitinM with DM1 on insulin pump, gastroparesis, CKD, HTN presented with a one day history of Nausea and Vomiting. Pt received IV Labetalol, 0.5mg Ativan , 10mg Compazine and 1L NSS bolus in the ER with improvement of symptoms. Pt was admitted continued inability to tolerate PO and KRYSTAL on CKD. 1) Nausea and Vomiting - Known gastroparesis with multiple admissions here and in [facility] - typically resolves after 48hrs IVF & meds, has an evaluation for Gastroparesis at [place] on July 10. - States he takes Valium 5mg BID and Compazine Per Rectum for nausea (didn't take any Compazine before coming in). - Per patient last episode lasted a week and nothing made him feel better besides supportive therapy and time. - NPO with IVF as below for KRYSTAL advance diet as tolerated -Normal QTc (Apr 2018 was 460) 4mg ODT Zofran Q4H PRN Nausea 5mg IV Compazine Q4H PRN Nausea or Vomiting 0.5mg Ativan IV BID PRN 0.5mg Ativan IV TID JACKI - Defer to [facility] for outpatient treatment. - diet advanced to full liquids on 06/06/2018 and normal diet on 06/08 -Was put on Reglan 10mg IV TID per GI recs 2)KRYSTAL on CKD Stage 3 Creatinine improved over the course of his stay 2.19 today 3) HTN Doesn't measure BPs at home. Held lisinopril due to his renal function Patient with high blood pressure requiring hydralazine at least daily Gave 5mg Hydralazine for SBP >170 and DBP >100. Started amlodipine today, will leave choice of antihypertensive agent up to Primary care physician but strongly recommend aggressive outpatient management of hypertension on discharge. Sending home with one week supply of 5 mg of amlodipine 4) CKD Stage 3 Spoke to patient about outpatient nephrology follow up 5) DM1 On insulin pump, will use for DM1 coverage, pt knowledgeable about disease course, reports sugars 120-150 before coming to hospital. HBA1C was 10.5 on 02/2018, 8.1 today 6) Anxiety Med rec states 5mg BID Valium, will hold and treat with Ativan as above. c/w Sertraline daily. Total Time Total Time Spent Total Time Spent (In Minutes): 60 Discharge Plan Discharge Items Patient Disposition: Home - Self-Care Reason For Visit: ILLNESS Discharge Diagnosis: Gastroparesis Condition: Good Discharge Goals: Improve disease control and Prevent disease Activity: Resume your previous activity Non-emergency contact: Primary Care Provider Call non-emergency contact if: you have any medication questions and your symptoms worsen Follow-up/Referrals: Andrew iL MD [Primary Care Provider] - 06/09/18 10:30 am (Please, follow up at Dr. Li's office with his associate, Dr. Reyes, on ThursdayJune 09 at at 10:30 am. *If you need to change this appointment, call their office at [phone].) Diet: Carb Count or DM1 Addtl Provider Instructions: Mr. De Los Santos, We had the pleasure of evaluating and treating you for your nausea and vomiting at [facility] this week. We feel that this is likely due to your gastroparesis and it appears that you have resolved. We strongly recommend you follow up with your primary care provider in the next week to discuss this issue and keep your appointment at [place] where you are currently followed for it. If your vomiting returns and you are unable to keep down liquids, please return immediately to the ER. We also recommend getting your blood pressure under control. Due to your kidney function we recommend stopping the losartan and talking to your primary care doctor about starting you on a different class of medication. We will be sending you home with a calcium channel deidre amlodipine in the mean time. Prescriptions: New amlodipine [Norvasc] 5 mg Tablet 5 mg PO QAM 10 Days Qty: 10 RF: 0 Continue ondansetron HCl [Zofran] 4 mg Tablet 4 mg PO QID PRN (Reason: Nausea) Qty: 0 RF: 0 prochlorperazine [Compazine] 25 mg Suppository 25 mg LA Q12H Qty: 0 RF: 0 insulin pump-infus. set-meter PUMP 1 dose Not Applicable UD Qty: 0 RF: 0 metoclopramide HCl [Reglan] 10 mg Tablet 10 mg PO QID PRN (Reason: Nausea) Qty: 6 RF: 0 sertraline 50 mg Tablet 50 mg PO DAILY RF: 0 diazepam 5 mg tablet 5 mg PO BID RF: 0 Discontinued lisinopril 5 mg tablet 5 mg PO DAILY RF: 0 Visit Report Forms: My [facility] Stand-Alone Forms: [facility] Discharge Orders: Discharge Order (Routine); Ordered 06/08/18 Ordered By: Luis Núñez Admission Data Admit Date/Time: 06/04/18 12:59 Attending Provider: Manny Hayes Admit Provider: Rick Oviedo Primary Care Provider: Andrew Li Other Providers: Tremaine Martinez Service: Medical Other Interventions: Discharge Summary Assessment (RN) Last Done: 06/08/18 16:10 Pending Studies at Discharge: No DC Date/Time DO NOT enter until pt leaves facility: 06/08/18 17:26 Supervising Physician Co-Signing Physician Notes Attending attestation Pt seen and examined in concert with Dr. Núñez. In agreement with the documented findings as noted in the resident documentation with any exceptions or additions as noted here. Pt reports feeling well at time of examination without nausea/vomiting and tolerating full liquid diet without complaint On examination, S1/S2 nl RRR no MCG, CTAB. Abd NT/ND BS+ve Intractable N/V in the setting of gastroparesis and DMI on insulin pump - glucose has been stable with rare episode of hypoglycemia which rapidly corrected and were connected to extended periods of fasting. Resume home regimen , follow up with gastroparesis specialists. KRYSTAL on CKD III - improving, d/c IVF and encourage PO hydration. HTN - persistently elevated in hospital to the 200s/100s. Holding lisinopril 2/ 2 resolving KRYSTAL. Will d/c on amlodipine to outpatient f/u.
[2018-06-08 15:07] LABS: BUN Creatinine Ratio 9.7 (10-20); Calcium 7.2 mg/dl (8.5-10.1); Creatinine Clr Calc Pharmacy 38.6 ml/min; Est GFR (Non-African American) 32.8
[2018-06-08 15:50] VITALS: BP 158/88; TEMP 97.5; O2SAT 93
[2018-06-08 16:12] VITALS: PULSE 85
[2018-06-08] MEDS ORDERED: INSULIN GLARGINE SOLOSTAR 100 UNITS/ML 3 ML PEN SQ SCH (21:00)
[2018-06-09] MEDS ORDERED: INSULIN ASPART 100 UNITS/ML 3 ML PEN SC SCH
[2018-06-09] MEDS ORDERED: AMLODIPINE BESYLATE 5 MG TAB PO SCH (09:00)
== END 2018-06-08 17:26 | disposition home or self-care (01) | DRG 74 ==
LOC: ED 07:27 → 2N 12:18 → INTOOBSV 12:45 → 2N 12:45 → SUATTDRO 06-04 12:59
DX: E86.0 Dehydration; F41.9 Anxiety disorder, unspecified; K31.89 Other diseases of stomach and duodenum; N17.9 Acute kidney failure, unspecified; Z96.41 Presence of insulin pump (external) (internal); E10.319 Type 1 diabetes mellitus with unspecified diabetic retinopathy without macular edema; K21.9 Gastro-esophageal reflux disease without esophagitis; Z79.4 Long term (current) use of insulin; I12.9 Hypertensive chronic kidney disease with stage 1 through stage 4 chronic kidney disease, or unspecified chronic kidney disease; N18.3 Chronic kidney disease, stage 3 (moderate); E10.43 Type 1 diabetes mellitus with diabetic autonomic (poly)neuropathy; Z79.899 Other long term (current) drug therapy; K31.84 Gastroparesis; E10.22 Type 1 diabetes mellitus with diabetic chronic kidney disease

== ENCOUNTER 2018-07-09 13:11 | Inpatient (IN) ==
[2018-07-09 14:42] LABS: Basophils # (auto) 0.02 K/uL (0-0.2); Basophils % (auto) 0.1 %; Eosinophils # (auto) 0.06 K/uL (0-0.5); Eosinophils % (auto) 0.3 %; Hematocrit (blood only) 31.4 % (42-52); Hemoglobin 11.4 g/dL (14.0-18.0); Immature Granulocytes # (auto) 0.07 K/uL (0.00-0.02); Immature Granulocytes % (auto) 0.4 %; Lymphocytes # (auto) 2.34 K/uL (1.2-3.4); Lymphocytes % (auto) 13.5 %; Mean Corpuscular Hgb Conc 36.3 g/dL (32-36); Mean Platelet Volume 8.8 fL (7.4-10.4); Monocytes # (auto) 1.01 K/uL (0.11-0.59); Monocytes % (auto) 5.8 %; Neutrophils # (auto) 13.82 K/uL (1.4-6.5); Neutrophils % (auto) 79.9 %; Platelet Count 489 K/uL (130-400); RDW Coefficient of Variation 12.4 % (11.5-14.5); RDW Standard Deviation 37.9 fL (36.4-46.3); Red Blood Count 3.74 M/uL (4.7-6.1); White Blood Count 17.32 K/uL (4.8-10.8)
[2018-07-09 14:56] LABS: Albumin Level 2.4 gm/dl (3.4-5.0); BUN Creatinine Ratio 19.8 (10-20); Calcium 8.1 mg/dl (8.5-10.1); Est GFR (African American) 27.2; Est GFR (Non-African American) 23.5; Potassium 3.1 mmol/L (3.5-5.1)
[2018-07-09 14:59] LABS: Acetaminophen 3 ug/ml (10-30); Salicylate < 1.7 mg/dl (2.8-20)
[2018-07-09 15:07] LABS: Albumin Globulin Ratio 0.7 (0.9-2); Bilirubin,Total 0.3 mg/dl (0.2-1); Globulin 3.5 gm/dl (2.5-4.0); Total Protein 5.9 gm/dl (6.4-8.2)
[2018-07-09] MEDS ORDERED: SODIUM CHLORIDE 0.9% 1000ML 1,000 ML IV ONE ×2 (15:08→15:41)
[2018-07-09 15:27] LABS: Appearance Urine Cloudy (Clear); Bilirubin Urine Negative (Negative); Color Urine Yellow; Glucose Urine UA 3+ (Negative); Ketones Urine Negative (Negative); Leukocyte Esterase Urine Negative (Negative); Nitrite Urine Negative (Negative); Protein Urine 3+ (Negative); Specific Gravity Urine 1.019 (1.000-1.030); Urobilinogen Urine Negative (Negative)
[2018-07-09 15:38] LABS: Bacteria Urine Automated 1+ (Negative); Epithelial Cell Urine Auto >30 /lpf (0-5); Renal Epithelial Cells Urine 0-5 /lpf (0-5)
[2018-07-09 15:48] LABS: Amphetamines+Metham, Urine Neg (Neg); Barbiturates, Urine Neg (Neg); Benzodiazepine, Urine Pos (Neg); Cocaine, Urine Neg (Neg); MDMA (Ecstacy), Urine Neg (Neg); Methadone, Urine Neg (Neg); Opiate, Urine Neg (Neg); Phencyclidine, Urine Neg (Neg)
[2018-07-09] MEDS ORDERED: DEXTROSE 50% 50 ML SYRINGE IV STA (17:54)
--- NOTE | 2018-07-09 18:26 | Emergency Department Note ---
Entered by Abel Nunn acting as a scribe for Demarcus Salmeron MD History of Present Illness General Chief complaint: Psychiatric Symptoms/Problems Stated complaint: DEPRESSION,NAUSEA Time Seen by Provider: 07/09/18 13:26 Source: patient and family Limitations: no limitations History of Present Illness Provider complaint: Depression/Anxiety Onset (ago): month(s) Location: head (Psych) Pain Consistency: + other (worsening) Quality: + other (Depression/anxiety) Treatments prior to arrival: other (Zoloft) The patient is a 47 year old white male with a past medical history of KRYSTAL, diabetes, HTN, and gastroparesis who presents to the Emergency Room with complaints of worsening depression and anxiety over the past couple of months. The patient's mother at bedside states that the Holidays this past year seemed to trigger his worsening depression and the father adds that he was admitted to [address] [place] [address] on - Jun.08. The mother adds that he has not been showing much emotion recently and has not left his bed in the past 2-3 days. He is not eating or drinking either. The patient is on Zoloft for depression/anxiety which is managed by his primary care physician. The patient adds that his filed for a divorce yesterday, which could be contributing to his acute depression. He denies any suicidal or homicidal ideations as well as AVH. Home Medications Home Medications Medication Instructions Recorded Confirmed Type ondansetron HCl [Zofran] 4 mg PO QID PRN #0 tab 10/05/15 07/09/18 History prochlorperazine [Compazine] 25 mg HI Q12H #0 supp 10/05/15 07/09/18 History insulin pump-infus. set-meter 1 dose NOT APPLICABLE UD #0 dose 05/20/16 History metoclopramide HCl [Reglan] 10 mg PO QID PRN #6 tab 11/26/17 07/09/18 History diazepam 5 mg PO BID 06/02/18 07/09/18 History amlodipine 10 mg PO QAM 07/09/18 07/09/18 History sertraline 100 mg PO QAM 07/09/18 07/09/18 History Allergies Allergy/AdvReac Type Severity Reaction Status Date / Time shellfish derived Allergy Severe anaphylaxis Verified 07/09/18 14:57 promethazine Allergy Intermediate itchy/hives Verified 07/09/18 14:57 Past Med/Surg History Medical History Acid reflux Gastroparesis due to DM Hypertension Type I diabetes mellitus Surgical History H/O shoulder surgery History of appendectomy History of hip surgery Family History Grandfather Heart attack Other No significant family history Social History marital status: Single Current Living Situation: Alone Feels Safe at Home: Yes Smoking Status: Never smoker Tobacco Type: smokeless tobacco Hx Alcohol Use: No Hx Substance Use: No Beliefs That Will Affect Care: None Preferred Language: Kiswahili Review of Systems See HPI for pertinent positives & negatives. and A total of 10 systems reviewed and were otherwise negative Physical Exam Vital Signs Vital Signs - 24 hr 07/09/18 13:20 07/09/18 15:10 07/09/18 17:10 Temperature 36.5 C Temperature Source Oral Sepsis Recent Fever Within 48 Hours No Sepsis Action Taken by Nursing No Action Required Pulse Rate 84 Pulse Rate [Finger] 86 89 Pulse Rhythm [Finger] Regular Regular Pulse Strength [Finger] Normal Normal Respiratory Rate 19 16 18 Respiratory Effort / Characteristics Non-Labored Spontaneous Non-Labored Spontaneous Respiratory Depth Normal Normal Respiratory Pattern Regular Regular Blood Pressure 123/75 Blood Pressure [Left Arm] 206/108 H 199/109 H Blood Pressure Mean 91 Blood Pressure Mean [Left Arm] 140 139 Blood Pressure Position Sitting Blood Pressure Position [Left Arm] Lying Lying Pulse Oximetry 99 98 100 Oxygen Delivery Method Room Air Room Air Room Air GENERAL: Depressed appearing, NAD, non-toxic. EYE EXAM: Normal conjunctiva. PERRL, no anisocoria and EOM's grossly intact w/o pain. OROPHARYNX: No exudate, posterior pharynx is clear, no tonsillar/uvular deviation or swelling. NECK: Supple, no nuchal rigidity, no adenopathy, non-tender. no signs of meningismus. LUNGS: Clear to auscultation. Normal chest wall mechanics. HEART: NSR, no MRG. ABDOMEN: Abdomen soft, non-tender, normo-active bowel sounds, no masses, no rebound or guarding. BACK: No CVA TTP. SKIN: No rashes and no bruising. UPPER EXTREMITIES: Upper extremities are grossly normal. LOWER EXTREMITIES: No pitting edema. No calf pain. NEURO EXAM: Cranial nerves II-XII grossly intact, normal speech, moves all 4 extremities on command w/o issue. PSYCH: Depressed mood, apathy present. NO SI/HI, no AVH. Course 1351: Past medical records reviewed. The patient was evaluated in room A7, and a complete history and physical examination were performed. 1604: The psychiatric outpatient case manager states that the patient will need a medical admission if he needs an IV for any treatments. 1644: I reviewed the patient's case with Dr. Cervantes - [facility] [place] Hospitalist. She will evaluate the patient for further management. Administered Medications Discontinued Medications Dextrose (Dextrose 50%) 25 ml IV NOW STA Stop: 07/09/18 17:55 Last Admin: 07/09/18 18:06 Dose: 25 ml Sodium Chloride (Nss 1000ml) 1,000 mls @ 999 mls/hr IV .Q1H1M ONE Stop: 07/09/18 16:08 Last Infusion: 07/09/18 16:56 Dose: 0 mls/hr Admin: 07/09/18 15:32 Dose: 999 mls/hr Sodium Chloride (Nss 1000ml) 1,000 mls @ 999 mls/hr IV .Q1H1M ONE Stop: 07/09/18 16:41 Last Admin: 07/09/18 16:55 Dose: 999 mls/hr Medical Decision Making Medical Records Attestation: I reviewed the patient's medical records. Home Medications Current Medication List: was personally reviewed by me Laboratory Data Attestation: I reviewed the patient's lab results. Result diagrams: 07/09/18 14:21 07/09/18 14:21 Lab Results 07/09/18 07/09/18 07/09/18 Range/Units 14:21 14:21 14:21 WBC 17.32 H (4.8-10.8) K/uL RBC 3.74 L (4.7-6.1) M/uL Hgb 11.4 L (14.0-18.0) g/dL Hct 31.4 L (42-52) % MCV 84.0 (80-100) fL MCH 30.5 (25-34) pg MCHC 36.3 H (32-36) g/dL RDW Std Deviation 37.9 (36.4-46.3) fL RDW Coeff of Kami 12.4 (11.5-14.5) % Plt Count 489 H (130-400) K/uL MPV 8.8 (7.4-10.4) fL Immature Gran % (Auto) 0.4 % Neut % (Auto) 79.9 % Lymph % (Auto) 13.5 % [place] % (Auto) 5.8 % Eos % (Auto) 0.3 % Baso % (Auto) 0.1 % Immature Gran # (Auto) 0.07 H (0.00-0.02) K/uL Neut # (Auto) 13.82 H (1.4-6.5) K/uL Lymph # (Auto) 2.34 (1.2-3.4) K/uL [place] # (Auto) 1.01 H (0.11-0.59) K/uL Eos # (Auto) 0.06 (0-0.5) K/uL Baso # (Auto) 0.02 (0-0.2) K/uL Sodium 126 L (136-145) mmol/L Potassium 3.1 L (3.5-5.1) mmol/L Chloride 91 L (98-107) mmol/L Carbon Dioxide 27 (21-32) mmol/L Anion Gap 8.0 (3-11) BUN 60 H (7-18) mg/dl Creatinine 3.02 H (0.6-1.4) mg/dl Est Cr Clr Drug Dosing 25.0 ml/min Est GFR ( Amer) 27.2 Est GFR (Non-Af Amer) 23.5 BUN/Creatinine Ratio 19.8 (10-20) Glucose 70 (70-99) mg/dl POC Glucose (70-99) Calcium 8.1 L (8.5-10.1) mg/dl Total Bilirubin 0.3 (0.2-1) mg/dl AST 23 (15-37) U/L ALT 46 (12-78) U/L Alkaline Phosphatase 152 H (45-117) U/L Total Protein 5.9 L (6.4-8.2) gm/dl Albumin 2.4 L (3.4-5.0) gm/dl Globulin 3.5 (2.5-4.0) gm/dl Albumin/Globulin Ratio 0.7 L (0.9-2) TSH 2.380 (0.300-4.500) uIu/ml Urine Color Urine Appearance (Clear) Urine pH (4.5-7.5) Ur Specific [place] (1.000-1.030) Urine Protein (Negative) Urine Glucose (UA) (Negative) Urine Ketones (Negative) Urine Blood (Negative) Urine Nitrite (Negative) Urine Bilirubin (Negative) Urine Urobilinogen (Negative) Ur Leukocyte Esterase (Negative) Urine WBC (Auto) (0-5) /hpf Urine RBC (Auto) (0-4) /hpf U Hyaline Cast (Auto) (0-5) /lpf U Epithel Cells (Auto) (0-5) /lpf Urine Bacteria (Auto) (Negative) Ur Renal Epithelial Cell (0-5) /lpf Granular Casts (0) /lpf Salicylates < 1.7 L (2.8-20) mg/dl Urine Opiates Screen (Neg) Ur Methadone, Qual (Neg) Acetaminophen 3 L (10-30) ug/ml Urine Barbiturates (Neg) Ur Phencyclidine (PCP) (Neg) U Amphetamin/Meth Scrn (Neg) MDMA (Ecstasy) Screen (Neg) U Benzodiazepines Scrn (Neg) Ur Cocaine Metabolite (Neg) U Marijuana (THC) Screen (Neg) Ethyl Alcohol mg/dL (0-3) mg/dl 07/09/18 07/09/18 07/09/18 Range/Units 14:21 14:21 14:21 WBC (4.8-10.8) K/uL RBC (4.7-6.1) M/uL Hgb (14.0-18.0) g/dL Hct (42-52) % MCV (80-100) fL MCH (25-34) pg MCHC (32-36) g/dL RDW Std Deviation (36.4-46.3) fL RDW Coeff of Kami (11.5-14.5) % Plt Count (130-400) K/uL MPV (7.4-10.4) fL Immature Gran % (Auto) % Neut % (Auto) % Lymph % (Auto) % [place] % (Auto) % Eos % (Auto) % Baso % (Auto) % Immature Gran # (Auto) (0.00-0.02) K/uL Neut # (Auto) (1.4-6.5) K/uL Lymph # (Auto) (1.2-3.4) K/uL [place] # (Auto) (0.11-0.59) K/uL Eos # (Auto) (0-0.5) K/uL Baso # (Auto) (0-0.2) K/uL Sodium (136-145) mmol/L Potassium (3.5-5.1) mmol/L Chloride (98-107) mmol/L Carbon Dioxide (21-32) mmol/L Anion Gap (3-11) BUN (7-18) mg/dl Creatinine (0.6-1.4) mg/dl Est Cr Clr Drug Dosing ml/min Est GFR ( Amer) Est GFR (Non-Af Amer) BUN/Creatinine Ratio (10-20) Glucose (70-99) mg/dl POC Glucose (70-99) Calcium (8.5-10.1) mg/dl Total Bilirubin (0.2-1) mg/dl AST (15-37) U/L ALT (12-78) U/L Alkaline Phosphatase (45-117) U/L Total Protein (6.4-8.2) gm/dl Albumin (3.4-5.0) gm/dl Globulin (2.5-4.0) gm/dl Albumin/Globulin Ratio (0.9-2) TSH (0.300-4.500) uIu/ml Urine Color Yellow Urine Appearance Cloudy H (Clear) Urine pH 5.0 (4.5-7.5) Ur Specific [place] 1.019 (1.000-1.030) Urine Protein 3+ H (Negative) Urine Glucose (UA) 3+ H (Negative) Urine Ketones Negative (Negative) Urine Blood 1+ H (Negative) Urine Nitrite Negative (Negative) Urine Bilirubin Negative (Negative) Urine Urobilinogen Negative (Negative) Ur Leukocyte Esterase Negative (Negative) Urine WBC (Auto) 10-30 H (0-5) /hpf Urine RBC (Auto) 0-4 (0-4) /hpf U Hyaline Cast (Auto) 10-30 H (0-5) /lpf U Epithel Cells (Auto) >30 H (0-5) /lpf Urine Bacteria (Auto) 1+ H (Negative) Ur Renal Epithelial Cell 0-5 (0-5) /lpf Granular Casts 10-20 H (0) /lpf Salicylates (2.8-20) mg/dl Urine Opiates Screen Neg (Neg) Ur Methadone, Qual Neg (Neg) Acetaminophen (10-30) ug/ml Urine Barbiturates Neg (Neg) Ur Phencyclidine (PCP) Neg (Neg) U Amphetamin/Meth Scrn Neg (Neg) MDMA (Ecstasy) Screen Neg (Neg) U Benzodiazepines Scrn Pos H (Neg) Ur Cocaine Metabolite Neg (Neg) U Marijuana (THC) Screen Neg (Neg) Ethyl Alcohol mg/dL < 3.0 (0-3) mg/dl 07/09/18 Range/Units 17:46 WBC (4.8-10.8) K/uL RBC (4.7-6.1) M/uL Hgb (14.0-18.0) g/dL Hct (42-52) % MCV (80-100) fL MCH (25-34) pg MCHC (32-36) g/dL RDW Std Deviation (36.4-46.3) fL RDW Coeff of Kami (11.5-14.5) % Plt Count (130-400) K/uL MPV (7.4-10.4) fL Immature Gran % (Auto) % Neut % (Auto) % Lymph % (Auto) % [place] % (Auto) % Eos % (Auto) % Baso % (Auto) % Immature Gran # (Auto) (0.00-0.02) K/uL Neut # (Auto) (1.4-6.5) K/uL Lymph # (Auto) (1.2-3.4) K/uL [place] # (Auto) (0.11-0.59) K/uL Eos # (Auto) (0-0.5) K/uL Baso # (Auto) (0-0.2) K/uL Sodium (136-145) mmol/L Potassium (3.5-5.1) mmol/L Chloride (98-107) mmol/L Carbon Dioxide (21-32) mmol/L Anion Gap (3-11) BUN (7-18) mg/dl Creatinine (0.6-1.4) mg/dl Est Cr Clr Drug Dosing ml/min Est GFR ( Amer) Est GFR (Non-Af Amer) BUN/Creatinine Ratio (10-20) Glucose (70-99) mg/dl POC Glucose 54 L* (70-99) Calcium (8.5-10.1) mg/dl Total Bilirubin (0.2-1) mg/dl AST (15-37) U/L ALT (12-78) U/L Alkaline Phosphatase (45-117) U/L Total Protein (6.4-8.2) gm/dl Albumin (3.4-5.0) gm/dl Globulin (2.5-4.0) gm/dl Albumin/Globulin Ratio (0.9-2) TSH (0.300-4.500) uIu/ml Urine Color Urine Appearance (Clear) Urine pH (4.5-7.5) Ur Specific [place] (1.000-1.030) Urine Protein (Negative) Urine Glucose (UA) (Negative) Urine Ketones (Negative) Urine Blood (Negative) Urine Nitrite (Negative) Urine Bilirubin (Negative) Urine Urobilinogen (Negative) Ur Leukocyte Esterase (Negative) Urine WBC (Auto) (0-5) /hpf Urine RBC (Auto) (0-4) /hpf U Hyaline Cast (Auto) (0-5) /lpf U Epithel Cells (Auto) (0-5) /lpf Urine Bacteria (Auto) (Negative) Ur Renal Epithelial Cell (0-5) /lpf Granular Casts (0) /lpf Salicylates (2.8-20) mg/dl Urine Opiates Screen (Neg) Ur Methadone, Qual (Neg) Acetaminophen (10-30) ug/ml Urine Barbiturates (Neg) Ur Phencyclidine (PCP) (Neg) U Amphetamin/Meth Scrn (Neg) MDMA (Ecstasy) Screen (Neg) U Benzodiazepines Scrn (Neg) Ur Cocaine Metabolite (Neg) U Marijuana (THC) Screen (Neg) Ethyl Alcohol mg/dL (0-3) mg/dl MDM Narrative The patient is a 47 year old white male with a past medical history of KRYSTAL, diabetes, HTN, and gastroparesis who presents to the Emergency Room with complaints of worsening depression and anxiety over the past couple of months. Differential diagnosis: Etiologies such as psychiatric disorder, infection, hypoglycemia, electrolyte abnormalities, cardiac sources, intracerebral event, toxicological process, neurologic disorder, as well as others were entertained. Patient was seen and evaluated the bedside. The patient was presenting with his parents. The patient was complaining of worsening depression and apathy. Patient was recently admitted over the New Year's holiday. The patient states that he has been on Zoloft for history of major depressive disorder. Of note the patient's recently filed for divorce. Per the patient's parents were present they were concerned as the patient does have employment but is currently not working. The patient is also not eating or drinking. The patient is not participating in daily activities nor caring for himself. Given this concern the patient had blood work completed along with a urine drug screen and tox screen. Patient's blood work did show a white count of 17. The patient denies any other acute symptoms. The patient does have some acute on chronic CKD as the patient's most recent creatinine was in the lower twos but is today greater than 3. The patient was given IV fluids. The patient did have a urine drug screen positive for benzos. Patient's salicylate Tylenol and alcohol are unremarkable. Given the medical clearance that is required the patient was admitted to the medicine service with a psychiatric consult. Impression & Plan Dehydration, KRYSTAL (acute kidney injury), Depression, Hyponatremia, Encounter for tobacco use cessation counseling Discharge Plan Visit Data Chief Complaint: Psychiatric Symptoms/Problems Stated Complaint: DEPRESSION,NAUSEA ED Provider: Deamrcus Salmeron Discharge Problem: Dehydration, KRYSTAL (acute kidney injury), Depression, Hyponatremia, Encounter for tobacco use cessation counseling Patient Disposition: Being Evaluated by Hospitalist Forms Stand Alone Forms: [employer] Prescriptions Prescriptions: No Action ondansetron HCl [Zofran] 4 mg Tablet 4 mg PO QID PRN (Reason: Nausea) Qty: 0 RF: 0 prochlorperazine [Compazine] 25 mg Suppository 25 mg HI Q12H Qty: 0 RF: 0 insulin pump-infus. set-meter PUMP 1 dose Not Applicable UD Qty: 0 RF: 0 metoclopramide HCl [Reglan] 10 mg Tablet 10 mg PO QID PRN (Reason: Nausea) Qty: 6 RF: 0 diazepam 5 mg tablet 5 mg PO BID RF: 0 sertraline 100 mg tablet 100 mg PO QAM RF: 0 amlodipine 10 mg tablet 10 mg PO QAM RF: 0 Referrals Referrals: Andrew Li MD [Primary Care Provider] - The scribe's documentation has been prepared under my direction and personally reviewed by me in its entirety. I confirm that the note above accurately reflects all work, treatment, procedures, and medical decision making performed by me.
[2018-07-09] MEDS ORDERED: HydrALAZINE HCL 20 MG/ML VIAL IV ONE (18:46)
[2018-07-09] MEDS ORDERED: ACETAMINOPHEN 325 MG TAB PO PRN (19:27)
[2018-07-09] MEDS ORDERED: METOCLOPRAMIDE HCL 10 MG TABLET PO PRN (19:27)
[2018-07-09] MEDS ORDERED: POTASSIUM CHLORIDE 10 MEQ TABCR PO STA (19:27)
[2018-07-09] MEDS ORDERED: GLUCOSE 40% GEL 15 GM TUBE PO PRN (19:27)
[2018-07-09] MEDS ORDERED: ONDANSETRON 4 MG TAB PO PRN (19:27)
[2018-07-09] MEDS ORDERED: [UNRECOGNIZED DRUG - OTHER] SCH (19:27)
[2018-07-09] MEDS ORDERED: DEXTROSE 50% 50 ML SYRINGE IV PRN (19:27)
[2018-07-09] MEDS ORDERED: GLUCOSE 10 TABS/TUBE PO PRN (19:27)
[2018-07-09] MEDS ORDERED: GLUCAGON FOR INJ 1 MG VIAL SQ PRN (19:27)
[2018-07-09] MEDS ORDERED: PHARMACY GLYCEMIC MGMT CONSULT PRN (19:48)
[2018-07-09] MEDS: SODIUM CHLORIDE 0.9% 1000ML 1,000 ML IV SCH (19:59)
--- NOTE | 2018-07-09 20:01 | History & Physical Report ---
Date of Service July 09, 2018 Assessment & Plan (1) Nausea and vomiting: Patient reports severe, persistent nausea and vomiting since April, poor po intake and a 10# unintentional weight loss. Symptoms are similar to his gastroparesis most likely worsened by his KRYSTAL on CKD. -Admit to medical floor -Zofran 4mg IV q 6 hours PRN -Reglan 10mg IV q 6 hours PRN -Continue Diazepam 5mg po BID -Continue Compazine 25mg po BID -NSS at 125mL/hr x 2 liters -Daily EKG to assess QT interval with above medications Present on Admission?: Yes (2) KRYSTAL (acute kidney injury): KRYSTAL in CKD-III. Patient with BUN=60, Cr=3.02 which is increased from baseline of appx BUN of 40 and Cr of 2.5. Suspect prerenal azotemia as patient has not been tolerating PO intake. -IVF as above -Monitor daily labs, BUN, Cr and electrolytes -Monitor I/Os -renal dosing where appropriate -Avoid nephrotoxic agents -Consider renal consultation if renal function fails to improve Present on Admission?: Yes (3) Diabetes: Patient with DM-I, insulin pump in place. He reports that his blood sugars have been adequately controlled lately. Last HgAIC=8.4 on 06/03/18. Patient with low blood sugar in ER. BS=55. He was administered 1/2 amp of d50 with improvement. -Continue fingersticks -Will continue insulin pump for now. Compromised renal function and poor po intake pose risk for hypoglycemia. If patient has additional low blood sugar readings will hold insulin pump and manage with basal bolus regimen -Glycemic management consult - appreciate assistance -Diabetic diet as tolerated (4) Gastroparesis: Nausea and vomiting, most likely secondary to gastroparesis. -Plan as above (5) Hypertension: Blood pressure poorly controlled at present -Continue Amlodipine 10mg po daily -Hydralazine PRN -Continue to monitor (6) CKD stage 3 due to type 1 diabetes mellitus: As above, most likely secondary to DM and HTN -renal dosing where appropriate -Avoid nephrotoxic medications -Monitor BUN, Cr electrolytes and UOP (7) Hyponatremia: Zl=814. was 133 in June. He was administered IVF in ER -Continue to monitor Na levels (8) Depression: Patient reports poorly controlled depression, increase in psychosocial stressors -Continue Sertraline 100mg po daily -Psychiatry consultation - appreciate assistance with this case (9) Leukocytosis: Elevated WBC count = 17.32, neutrophil predominant. Patient is afebrile, no overt evidence of infection. Possibly reactive in setting of severe nausea/ vomiting -Continue to watch for developing infection -Check Lipase -Follow urine culture F/E/N - NSS at 125mL/hr x 2 liters, KCL 40MEq PO x 1 dose, follow electrolytes, Renal/DM-I diet as tolerated. PT and OT assessment for possible rehab needs Ppx - Heparin for DVT prophylaxis Code - Full per discussion with patient Dispo - Admit to medical floor History of Present Illness Chief Complaint: Depression, nausea Primary Care Provider: Andrew Li Patient's parents at bedside at time of interview. Mr. De Los Santos is a 47yo C male with history of DM type I with insulin pump in place, with diabetic gastroparesis and retinopathy, CKD stage III, Depression/ Anxiety presenting with increase in depression symptoms as well as nausea, vomiting, fatigue and poor appetite. He reports 12 episodes of non-bloody, non- bilious vomiting, last episode in the ER. He denies abdominal pain, diarrhea. Nausea and vomiting are similar to his gastroparesis symptoms, however he states that feelilng fatigued is new. He has had an increase in his depression symptoms lately as well as an increase in psychosocial stressors as he is recently from his and she has filed for divorce. He reports compliance with his home medications. No recent medication changes. Patient was admitted to a hospital in [place] in April for 12 days for similar symptoms. He was also admitted to [facility] from 06/02 - 06/08 with similar symptoms. Symptoms typically resolve with IVF and medications. Patient states that he has had persistent nausea since his discharge 06/08/18. He reports a 10# unintention weight loss since April. Reports that his blood sugars have been adequately controlled with his pump. No additional complaints at this time. ER Course: NSS x 2L, Hydralazine 5mg IV, 1/2amp D50 Allergies Allergy/AdvReac Type Severity Reaction Status Date / Time shellfish derived Allergy Severe anaphylaxis Verified 07/09/18 14:57 promethazine Allergy Intermediate itchy/hives Verified 07/09/18 14:57 Home Medications Home Medications Medication Instructions Recorded Confirmed Type ondansetron HCl [Zofran] 4 mg PO QID PRN #0 tab 10/05/15 07/09/18 History prochlorperazine [Compazine] 25 mg NM Q12H #0 supp 10/05/15 07/09/18 History insulin pump-infus. set-meter 1 dose NOT APPLICABLE UD #0 dose 05/20/16 History metoclopramide HCl [Reglan] 10 mg PO QID PRN #6 tab 11/26/17 07/09/18 History diazepam 5 mg PO BID 06/02/18 07/09/18 History amlodipine 10 mg PO QAM 07/09/18 07/09/18 History sertraline 100 mg PO QAM 07/09/18 07/09/18 History Past Med/Surg History Medical History CKD (chronic kidney disease) Depression Acid reflux Gastroparesis due to DM Hypertension Type I diabetes mellitus Surgical History H/O shoulder surgery History of appendectomy History of hip surgery Family History Grandfather Heart attack Other No significant family history Social History marital status: Single Current Living Situation: Alone Other Information That Helps Us Care for You: No Feels Safe at Home: Yes Safety Concerns: Feels Safe At This Time Smoking Status: Never smoker Tobacco Type: smokeless tobacco Do You Dip or Chew Tobacco: Yes Smoking End Date: 1/3 can per day Tobacco Cessation Education Requested by Patient: No Hx Alcohol Use: No Hx Substance Use: No Beliefs That Will Affect Care: None Preferred Language: Portuguese Communication Ability: Effective Art Historian Required: No Review of Systems All systems reviewed & are unremarkable except as noted in HPI & below Patient reports occasional dizziness and loss of balance. Physical Exam 2 Vital Signs (Past 24 Hours): Last Vital Signs Temp 36.6 C 07/09/18 19:39 Pulse 55 L 07/09/18 19:39 Resp 18 07/09/18 19:39 BP 143/81 H 07/09/18 19:39 Pulse Ox 98 07/09/18 19:39 Physical Exam: General: patient resting comfortably, NAD, non-toxic in appearance, AA&O x 4 Skin: warm, dry, intact, no rashes or lesions HEENT: NC/AT, PERRL, EOMI, anicteric sclera, conjunctiva without injection, external ear normal to inspection and nontender, nares patent, dry mucus membranes, dentition intact, no oropharyngeal lesions, neck supple, trachea midline, no LAD, no thyromegaly, no JVD Heart: +S1/S2, regular, no m/r/g Lungs: equal air entry bilaterally, no rales/rhonchi/wheezes Abd: +BS, soft, NT/ND, no masses/organomegaly/ascites, insulin pump in place Ext: warm, 2+ pulses in UE/LE bilaterally, no clubbing/cyanosis or edema Neuro: nonfocal, patient AA&O x 4, speech intact, no facial droop, moving all extremities on command with equal strength 5/5 Results & Data Laboratory Results Lab Results 07/09/18 07/09/18 07/09/18 Range/Units 14:21 14:21 14:21 WBC 17.32 H (4.8-10.8) K/uL RBC 3.74 L (4.7-6.1) M/uL Hgb 11.4 L (14.0-18.0) g/dL Hct 31.4 L (42-52) % MCV 84.0 (80-100) fL MCH 30.5 (25-34) pg MCHC 36.3 H (32-36) g/dL RDW Std Deviation 37.9 (36.4-46.3) fL RDW Coeff of Kami 12.4 (11.5-14.5) % Plt Count 489 H (130-400) K/uL MPV 8.8 (7.4-10.4) fL Immature Gran % (Auto) 0.4 % Neut % (Auto) 79.9 % Lymph % (Auto) 13.5 % [place] % (Auto) 5.8 % Eos % (Auto) 0.3 % Baso % (Auto) 0.1 % Immature Gran # (Auto) 0.07 H (0.00-0.02) K/uL Neut # (Auto) 13.82 H (1.4-6.5) K/uL Lymph # (Auto) 2.34 (1.2-3.4) K/uL [place] # (Auto) 1.01 H (0.11-0.59) K/uL Eos # (Auto) 0.06 (0-0.5) K/uL Baso # (Auto) 0.02 (0-0.2) K/uL Sodium 126 L (136-145) mmol/L Potassium 3.1 L (3.5-5.1) mmol/L Chloride 91 L (98-107) mmol/L Carbon Dioxide 27 (21-32) mmol/L Anion Gap 8.0 (3-11) BUN 60 H (7-18) mg/dl Creatinine 3.02 H (0.6-1.4) mg/dl Est Cr Clr Drug Dosing 25.0 ml/min Est GFR ( Amer) 27.2 Est GFR (Non-Af Amer) 23.5 BUN/Creatinine Ratio 19.8 (10-20) Glucose 70 (70-99) mg/dl POC Glucose (70-99) Calcium 8.1 L (8.5-10.1) mg/dl Total Bilirubin 0.3 (0.2-1) mg/dl AST 23 (15-37) U/L ALT 46 (12-78) U/L Alkaline Phosphatase 152 H (45-117) U/L Total Protein 5.9 L (6.4-8.2) gm/dl Albumin 2.4 L (3.4-5.0) gm/dl Globulin 3.5 (2.5-4.0) gm/dl Albumin/Globulin Ratio 0.7 L (0.9-2) TSH 2.380 (0.300-4.500) uIu/ml Urine Color Urine Appearance (Clear) Urine pH (4.5-7.5) Ur Specific [place] (1.000-1.030) Urine Protein (Negative) Urine Glucose (UA) (Negative) Urine Ketones (Negative) Urine Blood (Negative) Urine Nitrite (Negative) Urine Bilirubin (Negative) Urine Urobilinogen (Negative) Ur Leukocyte Esterase (Negative) Urine WBC (Auto) (0-5) /hpf Urine RBC (Auto) (0-4) /hpf U Hyaline Cast (Auto) (0-5) /lpf U Epithel Cells (Auto) (0-5) /lpf Urine Bacteria (Auto) (Negative) Ur Renal Epithelial Cell (0-5) /lpf Granular Casts (0) /lpf Salicylates < 1.7 L (2.8-20) mg/dl Urine Opiates Screen (Neg) Ur Methadone, Qual (Neg) Acetaminophen 3 L (10-30) ug/ml Urine Barbiturates (Neg) Ur Phencyclidine (PCP) (Neg) U Amphetamin/Meth Scrn (Neg) MDMA (Ecstasy) Screen (Neg) U Benzodiazepines Scrn (Neg) Ur Cocaine Metabolite (Neg) U Marijuana (THC) Screen (Neg) Ethyl Alcohol mg/dL (0-3) mg/dl 07/09/18 07/09/18 07/09/18 Range/Units 14:21 14:21 14:21 WBC (4.8-10.8) K/uL RBC (4.7-6.1) M/uL Hgb (14.0-18.0) g/dL Hct (42-52) % MCV (80-100) fL MCH (25-34) pg MCHC (32-36) g/dL RDW Std Deviation (36.4-46.3) fL RDW Coeff of Kami (11.5-14.5) % Plt Count (130-400) K/uL MPV (7.4-10.4) fL Immature Gran % (Auto) % Neut % (Auto) % Lymph % (Auto) % [place] % (Auto) % Eos % (Auto) % Baso % (Auto) % Immature Gran # (Auto) (0.00-0.02) K/uL Neut # (Auto) (1.4-6.5) K/uL Lymph # (Auto) (1.2-3.4) K/uL [place] # (Auto) (0.11-0.59) K/uL Eos # (Auto) (0-0.5) K/uL Baso # (Auto) (0-0.2) K/uL Sodium (136-145) mmol/L Potassium (3.5-5.1) mmol/L Chloride (98-107) mmol/L Carbon Dioxide (21-32) mmol/L Anion Gap (3-11) BUN (7-18) mg/dl Creatinine (0.6-1.4) mg/dl Est Cr Clr Drug Dosing ml/min Est GFR ( Amer) Est GFR (Non-Af Amer) BUN/Creatinine Ratio (10-20) Glucose (70-99) mg/dl POC Glucose (70-99) Calcium (8.5-10.1) mg/dl Total Bilirubin (0.2-1) mg/dl AST (15-37) U/L ALT (12-78) U/L Alkaline Phosphatase (45-117) U/L Total Protein (6.4-8.2) gm/dl Albumin (3.4-5.0) gm/dl Globulin (2.5-4.0) gm/dl Albumin/Globulin Ratio (0.9-2) TSH (0.300-4.500) uIu/ml Urine Color Yellow Urine Appearance Cloudy H (Clear) Urine pH 5.0 (4.5-7.5) Ur Specific [place] 1.019 (1.000-1.030) Urine Protein 3+ H (Negative) Urine Glucose (UA) 3+ H (Negative) Urine Ketones Negative (Negative) Urine Blood 1+ H (Negative) Urine Nitrite Negative (Negative) Urine Bilirubin Negative (Negative) Urine Urobilinogen Negative (Negative) Ur Leukocyte Esterase Negative (Negative) Urine WBC (Auto) 10-30 H (0-5) /hpf Urine RBC (Auto) 0-4 (0-4) /hpf U Hyaline Cast (Auto) 10-30 H (0-5) /lpf U Epithel Cells (Auto) >30 H (0-5) /lpf Urine Bacteria (Auto) 1+ H (Negative) Ur Renal Epithelial Cell 0-5 (0-5) /lpf Granular Casts 10-20 H (0) /lpf Salicylates (2.8-20) mg/dl Urine Opiates Screen Neg (Neg) Ur Methadone, Qual Neg (Neg) Acetaminophen (10-30) ug/ml Urine Barbiturates Neg (Neg) Ur Phencyclidine (PCP) Neg (Neg) U Amphetamin/Meth Scrn Neg (Neg) MDMA (Ecstasy) Screen Neg (Neg) U Benzodiazepines Scrn Pos H (Neg) Ur Cocaine Metabolite Neg (Neg) U Marijuana (THC) Screen Neg (Neg) Ethyl Alcohol mg/dL < 3.0 (0-3) mg/dl 02/01/19 02/01/19 02/01/19 Range/Units 17:46 18:43 19:35 WBC (4.8-10.8) K/uL RBC (4.7-6.1) M/uL Hgb (14.0-18.0) g/dL Hct (42-52) % MCV (80-100) fL MCH (25-34) pg MCHC (32-36) g/dL RDW Std Deviation (36.4-46.3) fL RDW Coeff of Kami (11.5-14.5) % Plt Count (130-400) K/uL MPV (7.4-10.4) fL Immature Gran % (Auto) % Neut % (Auto) % Lymph % (Auto) % [place] % (Auto) % Eos % (Auto) % Baso % (Auto) % Immature Gran # (Auto) (0.00-0.02) K/uL Neut # (Auto) (1.4-6.5) K/uL Lymph # (Auto) (1.2-3.4) K/uL [place] # (Auto) (0.11-0.59) K/uL Eos # (Auto) (0-0.5) K/uL Baso # (Auto) (0-0.2) K/uL Sodium (136-145) mmol/L Potassium (3.5-5.1) mmol/L Chloride (98-107) mmol/L Carbon Dioxide (21-32) mmol/L Anion Gap (3-11) BUN (7-18) mg/dl Creatinine (0.6-1.4) mg/dl Est Cr Clr Drug Dosing ml/min Est GFR ( Amer) Est GFR (Non-Af Amer) BUN/Creatinine Ratio (10-20) Glucose (70-99) mg/dl POC Glucose 54 L* 89 71 (70-99) Calcium (8.5-10.1) mg/dl Total Bilirubin (0.2-1) mg/dl AST (15-37) U/L ALT (12-78) U/L Alkaline Phosphatase (45-117) U/L Total Protein (6.4-8.2) gm/dl Albumin (3.4-5.0) gm/dl Globulin (2.5-4.0) gm/dl Albumin/Globulin Ratio (0.9-2) TSH (0.300-4.500) uIu/ml Urine Color Urine Appearance (Clear) Urine pH (4.5-7.5) Ur Specific [place] (1.000-1.030) Urine Protein (Negative) Urine Glucose (UA) (Negative) Urine Ketones (Negative) Urine Blood (Negative) Urine Nitrite (Negative) Urine Bilirubin (Negative) Urine Urobilinogen (Negative) Ur Leukocyte Esterase (Negative) Urine WBC (Auto) (0-5) /hpf Urine RBC (Auto) (0-4) /hpf U Hyaline Cast (Auto) (0-5) /lpf U Epithel Cells (Auto) (0-5) /lpf Urine Bacteria (Auto) (Negative) Ur Renal Epithelial Cell (0-5) /lpf Granular Casts (0) /lpf Salicylates (2.8-20) mg/dl Urine Opiates Screen (Neg) Ur Methadone, Qual (Neg) Acetaminophen (10-30) ug/ml Urine Barbiturates (Neg) Ur Phencyclidine (PCP) (Neg) U Amphetamin/Meth Scrn (Neg) MDMA (Ecstasy) Screen (Neg) U Benzodiazepines Scrn (Neg) Ur Cocaine Metabolite (Neg) U Marijuana (THC) Screen (Neg) Ethyl Alcohol mg/dL (0-3) mg/dl Code Status & VTE Plan Code Status FULL VTE Prophylaxis Plan VTE Prophylaxis will be ordered: Yes Critical Care Time Critical Care Time: No _ (1) Diabetes Diabetes mellitus type: type 1 Diabetes mellitus complication status: with kidney complications Diabetes mellitus complication detail: with nephropathy Qualified Code(s): E10.21 - Type 1 diabetes mellitus with diabetic nephropathy (2) Hypertension Hypertension type: essential hypertension Qualified Code(s): I10 - Essential (primary) hypertension (3) Nausea and vomiting Vomiting Intractability: intractable Vomiting type: unspecified Qualified Code(s): R11.2 - Nausea with vomiting, unspecified (4) Depression Active/Remission status: currently active Depression Type: major depressive disorder Major depression episode severity: moderate Major depression recurrence: unspecified whether recurrent Psychotic features: Trimester: Qualified Code(s): F32.1 - Major depressive disorder, single episode, moderate
[2018-07-09] MEDS: PROCHLORPERAZINE 25 MG SUPP PR SCH (20:44)
[2018-07-09 20:52] LABS: Phosphorus 2.7 mg/dl (2.5-4.9)
[2018-07-09] MEDS: CARBOHYDRATES FOR HYPOGLYCEMIA PO PRN (20:52)
[2018-07-09 21:16] LABS: Partial Thromboplastin Ratio 0.9; Prothrombin Time 9.7 Seconds (9.0-12.0)
[2018-07-09] MEDS ORDERED: INSULIN GLARGINE SOLOSTAR 100 UNITS/ML 3 ML PEN SC ONE (21:45)
[2018-07-09] MEDS: diazePAM 5 MG TABLET PO SCH (22:06)
[2018-07-09] MEDS: HEPARIN SOD 5,000 UNIT/0.5 ML VIAL SQ SCH (22:10)
[2018-07-10] MEDS: INSULIN ASPART 100 UNITS/ML 3 ML PEN SC SCH ×6 (00:07→20:11)
[2018-07-10] MEDS: SODIUM CHLORIDE 0.9% 1000ML 1,000 ML IV SCH (03:44)
[2018-07-10] MEDS: HEPARIN SOD 5,000 UNIT/0.5 ML VIAL SQ SCH ×4 (05:23→20:11)
[2018-07-10 06:14] LABS: Basophils # (auto) 0.02 K/uL (0-0.2); Basophils % (auto) 0.2 %; Eosinophils # (auto) 0.07 K/uL (0-0.5); Eosinophils % (auto) 0.7 %; Hematocrit (blood only) 26.4 % (42-52); Hemoglobin 9.3 g/dL (14.0-18.0); Immature Granulocytes # (auto) 0.03 K/uL (0.00-0.02); Immature Granulocytes % (auto) 0.3 %; Lymphocytes # (auto) 2.09 K/uL (1.2-3.4); Lymphocytes % (auto) 20.7 %; Mean Corpuscular Hgb Conc 35.2 g/dL (32-36); Mean Corpuscular Volume 86.3 fL (80-100); Mean Platelet Volume 8.6 fL (7.4-10.4); Monocytes # (auto) 0.75 K/uL (0.11-0.59); Monocytes % (auto) 7.4 %; Neutrophils # (auto) 7.14 K/uL (1.4-6.5); Neutrophils % (auto) 70.7 %; Platelet Count 377 K/uL (130-400); RDW Coefficient of Variation 12.7 % (11.5-14.5); RDW Standard Deviation 40.5 fL (36.4-46.3); Red Blood Count 3.06 M/uL (4.7-6.1)
[2018-07-10 06:52] LABS: Alanine Aminotransferase 30 U/L (12-78); Albumin Level 1.8 gm/dl (3.4-5.0); Aspartate Aminotransferase 19 U/L (15-37); BUN Creatinine Ratio 18.3 (10-20); Bilirubin Direct < 0.1 mg/dl (0-0.2); Blood Urea Nitrogen 51 mg/dl (7-18); Calcium 7.4 mg/dl (8.5-10.1); Carbon Dioxide 26 mmol/L (21-32); Chloride 100 mmol/L (98-107); Creatinine Clr Calc Pharmacy 26.7 ml/min; Est GFR (African American) 29.5; Est GFR (Non-African American) 25.5; Glucose 160 mg/dl (70-99); Potassium 3.5 mmol/L (3.5-5.1); Sodium 133 mmol/L (136-145)
[2018-07-10 07:05] LABS: Alkaline Phosphatase 108 U/L (45-117); Bilirubin,Total 0.2 mg/dl (0.2-1); Prealbumin 19.1 mg/dl (20-40); Total Protein 4.5 gm/dl (6.4-8.2)
[2018-07-10] MEDS: PROCHLORPERAZINE 25 MG SUPP PR SCH ×2 (08:49→20:11)
[2018-07-10] MEDS: AMLODIPINE BESYLATE 5 MG TAB PO SCH (08:51)
[2018-07-10] MEDS: diazePAM 5 MG TABLET PO SCH ×2 (08:51→20:10)
[2018-07-10] MEDS ORDERED: SERTRALINE HCL 100 MG TABLET PO SCH (09:00)
[2018-07-10] MEDS: INSULIN GLARGINE SOLOSTAR 100 UNITS/ML 3 ML PEN SC SCH (09:11)
--- NOTE | 2018-07-10 12:22 | Pharmacy Report ---
Glycemic Control Consultation - Date of Service July 10, 2018 - Scope Scope: Glycemic Pharmacist consulted by Dr Teodora Cervantes on 07/09/18 for glycemic control and to write orders per [facility] inpatient glycemic control protocol - Objective Weight: 58.4 kg Accuchecks BSG (last 24hrs): 07/09/18 07/09/18 07/09/18 14:21 17:46 18:43 Glucose 70 POC Glucose 54 L* 89 07/09/18 07/09/18 07/09/18 19:35 20:48 21:11 Glucose POC Glucose 71 65 L* 66 L* 07/09/18 07/10/18 07/10/18 21:31 00:04 04:55 Glucose POC Glucose 143 H 134 H 160 H 07/10/18 07/10/18 07/10/18 05:54 08:04 11:27 Glucose 160 H POC Glucose 140 H 112 H Laboratory Data (last 24hrs): 07/09/18 07/10/18 14:21 05:54 Potassium 3.1 L 3.5 Carbon Dioxide 27 26 Anion Gap 8.0 7.0 Creatinine 3.02 H 2.82 H Est Cr Clr Drug Dosing 25.0 26.7 HbA1c: 8.4% on 06/03/18 - Recent Pertinent Medications Outpatient Anti-diabetic Regimen: * Humalog Pump * Basal rate = ~1 unit/hr * CF = 20mg/dl/unit for BSG > 150 * CR = 1 unit for every 10g CHO - Assessment & Plan Assessment & Plan: ASSESSMENT: * 47yo Type 1 diabetic male with near adequate outpatient control. * Pt known to pharmacy from previous admissions/glycemic consults * Pt admitted with long-standing hypoglycemia on admission secondary to N/V, decreased PO intake with insulin pump * Insulin pump removed on admission and pt treated with juice/D50 for hypo * Will change to low SQ basal bolus insulin regimen for inpatient use and transition back to insulin pump at discharge PLAN FOR INPATIENT GLYCEMIC CONTROL: * Holding outpatient insulin pump * Basal insulin * Lantus 10 units SQ daily - will increase back towards outpatient dosing of ~ 20 units/day based on PO intake and BSG trends. * Bolus insulin * NovoLog per scale ACHS or Q6hrs while NPO * Goal Range: Low 110 mg/dL - High 140 mg/dL * Correction Factor: 30 mg/dL/unit * Nutritional / Prandial insulin per carb ratio of 1 unit per 10 grams CHO consumed * Please note that the plan above was derived based on current level of insulin resistance and hospital stress. These recommendations are appropriate for inpatient admission only. Plan of care upon discharge will need to be reassessed to avoid potential outpatient hypo/hyperglycemia. Thank you.
--- NOTE | 2018-07-10 15:20 | Psychiatric Consultation ---
Date of Consultation July 10, 2018 Impression / Recommendations Impression Reviewed with Mr. De Los Santos that the treatment of his depression is complicated significantly by his medical condition. Reviewed that SSRIs and many other psych meds can contribute to hyponatremia and QTc prolongation, particularly in combination with metoclopramide. Though he denies side effects and notes benefit from Zoloft, he remains quite depressed and N has only worsened and dose cannot be titrated. Patient's belief is that Valium helps his anxiety but is mainly for gastroparesis so I defer to primary team on dosing. As longer acting benzo, I suspect given his KRYSTAL that he is not clearing it well and it is contributing to his excessive fatigue in days leading up to hospitalization. (1) Depression: Reviewed with patient that I would advise decreasing Zoloft, at least acutely, given possibility of 1 contributing factor to hyponatremia and prolonged QTc. Monitor N. As medical status improved, may need to be tapered further in favor of a trial of another antidepressant if can't retitrate. Remeron would be less likely to affect QTc and Na and may help appetite but I would not want to exacerbate sedation at this time (see comments re: valium, can have combined effects). BP is elevated at baseline so an SNRI such as Effexor not ideal and in my experience, Cymbalta has a fair amount of N. Wellbutrin would likely worsen appetite. He has not been experiencing SI. He is agreeable to continue therapy and gave permission for liaison nurse to speak with his mother to gain additional collateral re: his ability to care for self at home. Active/Remission status: currently active Depression Type: major depressive disorder Major depression episode severity: moderate Major depression recurrence: unspecified whether recurrent Psychotic features: Trimester: Qualified Code(s): F32.1 - Major depressive disorder, single episode, moderate (2) Hyponatremia: decrease SSRI, monitor (3) KRYSTAL (acute kidney injury): suspect resulting in poor clearance of long acting benzo (which seems for anxiety but primary gastroparesis by his report). Use of benzo for that indication is outside the scope of my practice and liaison to notify medical team of suggestion to taper dose acutely and/or consolidate to bedtime. If sedation persists, would switch to shorter acting benzo prior to meals for example. Risk Factors Assessment Do You Have Access To A Gun?: No Protective Factors Assessment Employed: Yes (Has not been to work since Allie time) CPT Code 72937 Psych History Identifying Data 47 yo male from [place], consult by Dr. Cervantes for depression. Admit 07/09. Chief Complaint "My medical condition makes me depressed and anxious". History of Present Illness Mr. De Los Santos is a 47yo C male with history of DM type I with insulin pump in place, with diabetic gastroparesis and retinopathy, CKD stage III, Depression/ Anxiety presenting with increase in depression symptoms as well as nausea, vomiting, fatigue and poor appetite. He was admitted with [facility] following a period of recurrent emesis. He has been from his for 2 years but she filed for divorce on 07/08/18. Family reported sleeping up to 15 hours a day for few days prior to admission and poor PO. He denied purposely restricting but simply has no appetite. 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 He has 2 similar admissions since April. He reports improvement in anxiety, "I'm alot calmer" since starting Zoloft 1 month ago. PHQ 9=22 but no SI. Past Psychiatric History Previous Psych History: no formal other than therapy Current Psychiatric Diagnosis: Major Depressive Disorder Outpatient Services: [facility] Previous Psych Admissions: none Do You Have Access To A Gun?: No History of Previous Suicide Attempt: No Past Medication Trials: current meds only, reports Valium is for gastroparesis, last fill #60 on 05/14. Allergies Allergy/AdvReac Type Severity Reaction Status Date / Time shellfish derived Allergy Severe anaphylaxis Verified 07/09/18 14:57 promethazine Allergy Intermediate itchy/hives Verified 07/09/18 14:57 Home Medications Home Medications Medication Instructions Recorded Confirmed Type ondansetron HCl [Zofran] 4 mg PO QID PRN #0 tab 10/05/15 07/09/18 History prochlorperazine [Compazine] 25 mg DC Q12H #0 supp 10/05/15 07/09/18 History insulin pump-infus. set-meter 1 dose NOT APPLICABLE UD #0 dose 05/20/16 History metoclopramide HCl [Reglan] 10 mg PO QID PRN #6 tab 11/26/17 07/09/18 History diazepam 5 mg PO BID 06/02/18 07/09/18 History amlodipine 10 mg PO QAM 07/09/18 07/09/18 History sertraline 100 mg PO QAM 07/09/18 07/09/18 History Family History no family psych hx Substance Abuse History denied Personal History Living Arrangements: Home Highest Grade Completed: High School Graduate and Vocational Training ([employer]) Employment Status: Other (medical leave) Marital Status: Number Of Children: 2--15 yo boy and 13 yo girl Beliefs That Will Affect Care: None History of Legal Problems: none Psychological Trauma History Comment: denied Patient History Medical History CKD (chronic kidney disease) Depression Acid reflux Gastroparesis due to DM Hypertension Type I diabetes mellitus Surgical History H/O shoulder surgery History of appendectomy History of hip surgery Family History Grandfather Heart attack Other No significant family history Social History marital status: Single Current Living Situation: Alone Other Information That Helps Us Care for You: No Feels Safe at Home: Yes Safety Concerns: Feels Safe At This Time Smoking Status: Never smoker Tobacco Type: smokeless tobacco Do You Dip or Chew Tobacco: Yes Smoking End Date: 1/3 can per day Tobacco Cessation Education Requested by Patient: No Hx Alcohol Use: No Hx Substance Use: No Beliefs That Will Affect Care: None Preferred Language: Yi Communication Ability: 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 Physical Exam Psychiatric Orientation: alert and oriented x 3 Apperance: appropriately groomed Eye Contact: + fair eye contact Speech: normal rate/rhythm/volume of speech Affect: + depressed affect Mood: + depressed mood Thought Process: linear/logical thought process Thought Content: reality based without delusions Suicidal Thoughts: denies suicidal thoughts Homicidal Thoughts: denies homicidal thoughts Hallucinations: no auditory hallucinations and no visual hallucinations Cognition: recent memory grossly intact and language grossly intact Estimated Intelligence: consistent with education level Insight: + fair insight Judgement: + fair judgement Vital Signs (Past 24 Hours) Last Vital Signs Temp 36.5 C 07/10/18 14:54 Pulse 84 07/10/18 14:54 Resp 20 07/10/18 14:54 BP 148/90 H 07/10/18 14:54 Pulse Ox 97 07/10/18 14:54 Review of Systems Other defer to medicine, complex medical, currently denies pain, poor appetite noted Results & Data Medications Administered Amlodipine Besylate (Norvasc) 10 mg PO QAM [facility] Stop: 08/09/18 08:59 Last Admin: 07/10/18 08:51 Dose: 10 mg Dextrose (Dextrose 50%) 25 - 50 ml IV UD PRN; Protocol PRN Reason: Hypoglycemia Protocol Stop: 08/08/18 19:26 Last Admin: 07/09/18 21:22 Dose: 25 ml Diazepam (Valium) 5 mg PO BID [facility] Stop: 08/08/18 20:59 Last Admin: 07/10/18 08:51 Dose: 5 mg Admin: 07/09/18 22:06 Dose: 5 mg Heparin Sodium (Porcine) (Heparin Sodium (Porcine)) 5,000 units SQ Q8 [facility] Stop: 08/08/18 21:59 Last Admin: 07/10/18 13:24 Dose: Not Given Admin: 07/10/18 05:30 Dose: Not Given Admin: 07/09/18 22:10 Dose: Not Given Insulin Aspart (Novolog Flexpen) 0 units SC ACHS [facility]; Protocol Stop: 08/09/18 07:29 Last Admin: 07/10/18 13:10 Dose: Not Given Admin: 07/10/18 09:10 Dose: 2 units Insulin Aspart (Novolog Flexpen) 0 units SC 0000,0400 [facility]; Protocol Stop: 08/09/18 00:00 Last Admin: 07/10/18 05:22 Dose: 1 units Admin: 07/10/18 00:07 Dose: Not Given Insulin Glargine (Lantus Solostar Pen) 10 units SC DAILY [facility]; Protocol Stop: 08/09/18 08:59 Last Admin: 07/10/18 09:11 Dose: 10 units Miscellaneous (Carbohydrates For Hypoglycemia) 15 - 30 gm PO UD PRN PRN Reason: Hypoglycemia Treatment Stop: 08/08/18 19:26 Last Admin: 07/09/18 20:52 Dose: 15 gm Prochlorperazine (Compazine) 25 mg DC Q12H [facility] Stop: 08/08/18 19:59 Last Admin: 07/10/18 08:49 Dose: Not Given Admin: 07/09/18 20:44 Dose: 25 mg
--- NOTE | 2018-07-10 19:11 | Family Medicine Progress Note ---
Date of Service July 10, 2018 Assessment & Plan (1) Nausea and vomiting: likely secondary to diabetic gastroparesis - currently resolved with prn Reglan, Zofran - Continue to monitor (2) [id number] kidney injury: likely secondary to dehydration in the setting of N/V, CKD secondary to Diabetic nephropathy - Cr improved with IV hydration, nearing Baseline around 2.5 - Avoid nephrotoxic agents (3) Diabetic gastroparesis: likely contributor to nausea/vomiting Continue Diazepam, ZOfran, Reglan (4) Depression: Depression in setting of recent decision on part of to get a divorce , denies suicidal ideation - reports he has emotional support from his parents - Psychiatry consulted, F/u report (5) Hypertension: Continue Amlodipine 10 mg daily (6) Hyponatremia: (7) Diabetes: Continue insulin pump glycemic consult on board (8) DVT prophylaxis: Heparin Supervising Physician Co-Signing Physician Notes Attending attestation Pt seen and examined in concert with Dr. Linn. In agreement with the documented findings as noted in the resident documentation with any exceptions or additions as noted here. Tolerating solid POI without abdominal pain or nausea. 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 Has been increasing chewing tobacco use, hypersomnolence and fatigue up to 16 hours per day, anhedonia, appetite loss. The latter and the former he attributes his recent exacerbation. Family is the predominance of his support system, chiefly mother and father, though he does have a counselor which he reliably sees On examination, S1/S2 nl RRR no MCG. CTAB. Abd NT/ND BS +ve. No LE edema appreciated. CNII-XII grossly intact. Denies SI/HI at this time or historically. Intractable N/V in the setting of gastroparesis - continue zofran, reglan, diazepam, compazine and IVF. Will D/C fluids in AM w/ improved BMP. Advance diet as tolerated KRYSTAL on CKD-III - continue IVF and recheck in AM. Encourage POI Type I diabetes on insulin pump - glycemic mgmt consultation appreciated - continue pump Depression - psychiatry consultation appreciated, continue sertraline Hyponatremia - returned to baseline 133 HTN - continue home medications Tobacco use - encourage cessation, defers NRT at present. Subjective NO acute events overnight. Patient reports N/V resolved. He continues to report depressed mood in the setting of recent decision on the part of his to file for divorce. Patient reports he sees therapist regularly and finds it some what helpful. He denies suicidal ideation. Constitutional: no fever and no chills Respiratory: no dyspnea Cardiovascular: no chest pain, no dyspnea and no edema Gastrointestinal: no nausea, no vomiting, no constipation and no diarrhea/loose stools Psychiatric: + depression and + hopelessness; no suicidal ideation and no homicidal ideation Physical Exam 2 Vital Signs (Past 24 Hours): Last Vital Signs Temp 36.5 C 07/10/18 14:54 Pulse 84 07/10/18 14:54 Resp 20 07/10/18 14:54 BP 148/90 H 07/10/18 14:54 Pulse Ox 97 07/10/18 14:54 Constitutional: WD/WN, vitals as above no acute distress Eyes: PERRL and EOM intact bilaterally ENMT: external ear and nose normal, oropharynx normal Neck: trachea midline, no thyromegaly Respiratory: normal respiratory effort, lungs clear to auscultation Cardiovascular: RRR, no murmur, no edema Gastrointestinal (Abdomen): normal bowel sounds, soft, nontender, no hepatosplenomegaly Musculoskeletal: no cyanosis or clubbing, extremities motor strength 5/5 Skin: no rashes, warm and dry Neurologic: PERRL, EOMI, accommodation nl, no face palsy, no dysarthria CN' s II-XI intact bilaterally and awake Psychiatric: Orientation: alert and oriented x 3 Eye Contact: good eye contact Motor Behavior: no abnormal motor movements Speech: normal rate/ rhythm/volume of speech Affect: + depressed affect Mood: + depressed mood Thought Process: clear/coherent thought process Suicidal Thoughts: denies suicidal thoughts Homicidal Thoughts: denies homicidal thoughts Results & Data Laboratory Results Laboratory Results WBC 10.10 K/uL (4.8-10.8) 07/10/18 05:54 RBC 3.06 M/uL (4.7-6.1) L 07/10/18 05:54 Hgb 9.3 g/dL (14.0-18.0) L 07/10/18 05:54 Hct 26.4 % (42-52) L 07/10/18 05:54 MCV 86.3 fL (80-100) 07/10/18 05:54 MCH 30.4 pg (25-34) 07/10/18 05:54 MCHC 35.2 g/dL (32-36) 07/10/18 05:54 RDW Std Deviation 40.5 fL (36.4-46.3) 07/10/18 05:54 RDW Coeff of Kami 12.7 % (11.5-14.5) 07/10/18 05:54 Plt Count 377 K/uL (130-400) 07/10/18 05:54 MPV 8.6 fL (7.4-10.4) 07/10/18 05:54 Immature Gran % (Auto) 0.3 % 07/10/18 05:54 Neut % (Auto) 70.7 % 07/10/18 05:54 Lymph % (Auto) 20.7 % 07/10/18 05:54 [place] % (Auto) 7.4 % 07/10/18 05:54 Eos % (Auto) 0.7 % 07/10/18 05:54 Baso % (Auto) 0.2 % 07/10/18 05:54 Immature Gran # (Auto) 0.03 K/uL (0.00-0.02) H 07/10/18 05:54 Neut # (Auto) 7.14 K/uL (1.4-6.5) H 07/10/18 05:54 Lymph # (Auto) 2.09 K/uL (1.2-3.4) 07/10/18 05:54 [place] # (Auto) 0.75 K/uL (0.11-0.59) H 07/10/18 05:54 Eos # (Auto) 0.07 K/uL (0-0.5) 07/10/18 05:54 Baso # (Auto) 0.02 K/uL (0-0.2) 07/10/18 05:54 PT 9.7 Seconds (9.0-12.0) 07/09/18 20:56 INR 1.0 (0.9-1.1) 07/09/18 20:56 APTT 23.0 Seconds (21.0-31.0) 07/09/18 20:56 PTT Ratio 0.9 07/09/18 20:56 Sodium 133 mmol/L (136-145) L D 07/10/18 05:54 Potassium 3.5 mmol/L (3.5-5.1) 07/10/18 05:54 Chloride 100 mmol/L (98-107) 07/10/18 05:54 Carbon Dioxide 26 mmol/L (21-32) 07/10/18 05:54 Anion Gap 7.0 (3-11) 07/10/18 05:54 BUN 51 mg/dl (7-18) H 07/10/18 05:54 Creatinine 2.82 mg/dl (0.6-1.4) H 07/10/18 05:54 Est Cr Clr Drug Dosing 26.7 ml/min 07/10/18 05:54 Est GFR ( Amer) 29.5 07/10/18 05:54 Est GFR (Non-Af Amer) 25.5 07/10/18 05:54 BUN/Creatinine Ratio 18.3 (10-20) 07/10/18 05:54 Glucose 160 mg/dl (70-99) H 07/10/18 05:54 POC Glucose 171 (70-99) H 07/10/18 19:58 Calcium 7.4 mg/dl (8.5-10.1) L 07/10/18 05:54 Phosphorus 2.7 mg/dl (2.5-4.9) 07/09/18 19:54 Magnesium 2.0 mg/dl (1.8-2.4) 07/09/18 19:54 Total Bilirubin 0.2 mg/dl (0.2-1) 07/10/18 05:54 Direct Bilirubin < 0.1 mg/dl (0-0.2) 07/10/18 05:54 AST 19 U/L (15-37) 07/10/18 05:54 ALT 30 U/L (12-78) 07/10/18 05:54 Alkaline Phosphatase 108 U/L (45-117) 07/10/18 05:54 Total Protein 4.5 gm/dl (6.4-8.2) L D 07/10/18 05:54 Albumin 1.8 gm/dl (3.4-5.0) L 07/10/18 05:54 Globulin 3.5 gm/dl (2.5-4.0) 07/09/18 14:21 Albumin/Globulin Ratio 0.7 (0.9-2) L 07/09/18 14:21 Prealbumin 19.1 mg/dl (20-40) L 07/10/18 05:54 Lipase 78 U/L (73-393) 07/09/18 19:54 TSH 2.380 uIu/ml (0.300-4.500) 07/09/18 14:21 Urine Color Yellow 07/09/18 14:21 Urine Appearance Cloudy (Clear) H 07/09/18 14:21 Urine pH 5.0 (4.5-7.5) 07/09/18 14:21 Ur Specific [place] 1.019 (1.000-1.030) 07/09/18 14:21 Urine Protein 3+ (Negative) H 07/09/18 14:21 Urine Glucose (UA) 3+ (Negative) H 07/09/18 14:21 Urine Ketones Negative (Negative) 07/09/18 14:21 Urine Blood 1+ (Negative) H 07/09/18 14:21 Urine Nitrite Negative (Negative) 07/09/18 14:21 Urine Bilirubin Negative (Negative) 07/09/18 14:21 Urine Urobilinogen Negative (Negative) 07/09/18 14:21 Ur Leukocyte Esterase Negative (Negative) 07/09/18 14:21 Urine WBC (Auto) 10-30 /hpf (0-5) H 07/09/18 14:21 Urine RBC (Auto) 0-4 /hpf (0-4) 07/09/18 14:21 U Hyaline Cast (Auto) 10-30 /lpf (0-5) H 07/09/18 14:21 U Epithel Cells (Auto) >30 /lpf (0-5) H 07/09/18 14:21 Urine Bacteria (Auto) 1+ (Negative) H 07/09/18 14:21 Ur Renal Epithelial Cell 0-5 /lpf (0-5) 07/09/18 14:21 Granular Casts 10-20 /lpf (0) H 07/09/18 14:21 Salicylates < 1.7 mg/dl (2.8-20) L 07/09/18 14:21 Urine Opiates Screen Neg (Neg) 07/09/18 14:21 Ur Methadone, Qual Neg (Neg) 07/09/18 14:21 Acetaminophen 3 ug/ml (10-30) L 07/09/18 14:21 Urine Barbiturates Neg (Neg) 07/09/18 14:21 Ur Phencyclidine (PCP) Neg (Neg) 07/09/18 14:21 U Amphetamin/Meth Scrn Neg (Neg) 07/09/18 14:21 MDMA (Ecstasy) Screen Neg (Neg) 07/09/18 14:21 U Benzodiazepines Scrn Pos (Neg) H 07/09/18 14:21 Ur Cocaine Metabolite Neg (Neg) 07/09/18 14:21 U Marijuana (THC) Screen Neg (Neg) 07/09/18 14:21 Ethyl Alcohol mg/dL < 3.0 mg/dl (0-3) 07/09/18 14:21 Medications Administered Amlodipine Besylate (Norvasc) 10 mg PO QAM [facility] Stop: 08/09/18 08:59 Last Admin: 07/10/18 08:51 Dose: 10 mg Dextrose (Dextrose 50%) 25 - 50 ml IV UD PRN; Protocol PRN Reason: Hypoglycemia Protocol Stop: 08/08/18 19:26 Last Admin: 07/09/18 21:22 Dose: 25 ml Diazepam (Valium) 5 mg PO BID [facility] Stop: 08/08/18 20:59 Last Admin: 07/10/18 20:10 Dose: 5 mg Admin: 07/10/18 08:51 Dose: 5 mg Admin: 07/09/18 22:06 Dose: 5 mg Heparin Sodium (Porcine) (Heparin Sodium (Porcine)) 5,000 units SQ Q8 [facility] Stop: 08/08/18 21:59 Last Admin: 07/10/18 20:11 Dose: Not Given Admin: 07/10/18 13:24 Dose: Not Given Admin: 07/10/18 05:30 Dose: Not Given Admin: 07/09/18 22:10 Dose: Not Given Insulin Aspart (Novolog Flexpen) 0 units SC ACHS [facility]; Protocol Stop: 08/09/18 07:29 Last Admin: 07/10/18 20:11 Dose: 2 units Admin: 07/10/18 18:11 Dose: 2 units Admin: 07/10/18 13:10 Dose: Not Given Admin: 07/10/18 09:10 Dose: 2 units Insulin Aspart (Novolog Flexpen) 0 units SC 0000,0400 [facility]; Protocol Stop: 08/09/18 00:00 Last Admin: 07/10/18 05:22 Dose: 1 units Admin: 07/10/18 00:07 Dose: Not Given Insulin Glargine (Lantus Solostar Pen) 10 units SC DAILY [facility]; Protocol Stop: 08/09/18 08:59 Last Admin: 07/10/18 09:11 Dose: 10 units Miscellaneous (Carbohydrates For Hypoglycemia) 15 - 30 gm PO UD PRN PRN Reason: Hypoglycemia Treatment Stop: 08/08/18 19:26 Last Admin: 07/09/18 20:52 Dose: 15 gm Prochlorperazine (Compazine) 25 mg OK Q12H [facility] Stop: 08/08/18 19:59 Last Admin: 07/10/18 20:11 Dose: Not Given Admin: 07/10/18 08:49 Dose: Not Given Admin: 07/09/18 20:44 Dose: 25 mg Discontinued Medications Dextrose (Dextrose 50%) 25 ml IV NOW STA Stop: 07/09/18 17:55 Last Admin: 07/09/18 18:06 Dose: 25 ml Hydralazine HCl (Hydralazine Hcl) 5 mg IV NOW ONE Stop: 07/09/18 18:47 Last Admin: 07/09/18 18:51 Dose: 5 mg Sodium Chloride (Nss 1000ml) 1,000 mls @ 999 mls/hr IV .Q1H1M ONE Stop: 07/09/18 16:08 Last Infusion: 07/09/18 16:56 Dose: 0 mls/hr Admin: 07/09/18 15:32 Dose: 999 mls/hr Sodium Chloride (Nss 1000ml) 1,000 mls @ 999 mls/hr IV .Q1H1M ONE Stop: 07/09/18 16:41 Last Infusion: 07/09/18 17:56 Dose: 0 mls/hr Admin: 07/09/18 16:55 Dose: 999 mls/hr Sodium Chloride (Nss 1000ml) 1,000 mls @ 125 mls/hr IV .Q8H [facility] Stop: 07/10/18 11:49 Last Infusion: 07/10/18 11:49 Dose: 0 mls/hr Admin: 07/10/18 03:44 Dose: 125 mls/hr Infusion: 07/10/18 03:44 Dose: 125 mls/hr Admin: 07/09/18 19:59 Dose: 125 mls/hr Insulin Glargine (Lantus Solostar Pen) 5 units SC NOW ONE; Protocol Stop: 07/09/18 21:46 Last Admin: 07/09/18 22:06 Dose: 5 units Potassium Chloride (Klor-Con M10) 40 meq PO NOW STA Stop: 07/09/18 19:28 Last Admin: 07/09/18 20:43 Dose: 40 meq Sertraline HCl (Zoloft) 100 mg PO QAM [facility] Stop: 08/09/18 08:59 Last Admin: 07/10/18 08:52 Dose: 100 mg Resident Activity Tracking Resident Involvement: Resident Care Provided Care Provided: Adult [facility] Medicine _ (1) Nausea and vomiting Vomiting Intractability: intractable Vomiting type: unspecified Qualified Code(s): R11.2 - Nausea with vomiting, unspecified (2) Hypertension Hypertension type: essential hypertension Qualified Code(s): I10 - Essential (primary) hypertension (3) Depression Active/Remission status: currently active Depression Type: major depressive disorder Major depression episode severity: moderate Major depression recurrence: unspecified whether recurrent Psychotic features: Trimester: Qualified Code(s): F32.1 - Major depressive disorder, single episode, moderate (4) Diabetes Diabetes mellitus type: type 1 Diabetes mellitus fpc insulin use: Diabetes mellitus complication status: with kidney complications Diabetes mellitus complication detail: with nephropathy Diabetic retinopathy severity: Proliferative retinopathy type: Diabetes mellitus macular edema: Laterality: Chronic kidney disease stage: Qualified Code(s): E10.21 - Type 1 diabetes mellitus with diabetic nephropathy
[2018-07-11] MEDS: SODIUM CHLORIDE 0.9% 1000ML 1,000 ML IV SCH ×2 (00:05→10:15)
[2018-07-11] MEDS: INSULIN ASPART 100 UNITS/ML 3 ML PEN SC SCH ×6 (00:11→20:47)
[2018-07-11] MEDS: HEPARIN SOD 5,000 UNIT/0.5 ML VIAL SQ SCH ×4 (04:40→21:38)
[2018-07-11 06:55] LABS: Basophils # (auto) 0.02 K/uL (0-0.2); Basophils % (auto) 0.2 %; Eosinophils # (auto) 0.16 K/uL (0-0.5); Eosinophils % (auto) 1.5 %; Hematocrit (blood only) 29.4 % (42-52); Hemoglobin 9.9 g/dL (14.0-18.0); Immature Granulocytes # (auto) 0.05 K/uL (0.00-0.02); Immature Granulocytes % (auto) 0.5 %; Lymphocytes # (auto) 2.43 K/uL (1.2-3.4); Lymphocytes % (auto) 22.6 %; Mean Corpuscular Hgb Conc 33.7 g/dL (32-36); Mean Corpuscular Volume 89.9 fL (80-100); Mean Platelet Volume 8.5 fL (7.4-10.4); Monocytes # (auto) 0.93 K/uL (0.11-0.59); Monocytes % (auto) 8.6 %; Neutrophils # (auto) 7.17 K/uL (1.4-6.5); Neutrophils % (auto) 66.6 %; Platelet Count 357 K/uL (130-400); RDW Coefficient of Variation 12.9 % (11.5-14.5); RDW Standard Deviation 41.8 fL (36.4-46.3); Red Blood Count 3.27 M/uL (4.7-6.1); White Blood Count 10.76 K/uL (4.8-10.8)
[2018-07-11 07:27] LABS: Calcium 7.6 mg/dl (8.5-10.1); Est GFR (African American) 28.5; Est GFR (Non-African American) 24.6; Potassium 3.7 mmol/L (3.5-5.1)
[2018-07-11] MEDS: AMLODIPINE BESYLATE 5 MG TAB PO SCH (08:41)
[2018-07-11] MEDS: PROCHLORPERAZINE 25 MG SUPP PR SCH ×2 (08:41→19:35)
[2018-07-11] MEDS: SERTRALINE HCL 50 MG TABLET PO SCH (08:41)
[2018-07-11] MEDS: INSULIN GLARGINE SOLOSTAR 100 UNITS/ML 3 ML PEN SC SCH (08:42)
[2018-07-11] MEDS: diazePAM 5 MG TABLET PO SCH ×2 (08:46→20:44)
[2018-07-11] MEDS: ONDANSETRON INJ 2 MG/ML 2 ML VIAL IV PRN ×2 (10:14→17:06)
[2018-07-11] MEDS ORDERED: INSULIN GLARGINE SOLOSTAR 100 UNITS/ML 3 ML PEN SC SCH (11:30)
--- NOTE | 2018-07-11 13:01 | Pharmacy Report ---
Pharmacy Glycemic Short Note 2 - Date of Service July 11, 2018 - Glycemic Short BSG Results (Last 24 hours): 07/10/18 07/10/18 07/10/18 16:38 17:02 17:22 Glucose POC Glucose 74 73 98 07/10/18 07/11/18 07/11/18 19:58 00:02 04:29 Glucose POC Glucose 171 H 102 H 70 07/11/18 07/11/18 07/11/18 06:35 08:00 11:20 Glucose 116 H POC Glucose 164 H 173 H OUTPATIENT ANTIDIABETIC REGIMEN: * Humalog Pump * Basal rate = ~1 unit/hr * CF = 20mg/dl/unit for BSG > 150 * CR = 1 unit for every 10g CHO ASSESSMENT: * 47yo Type 1 diabetic male with near adequate outpatient control per A1c. * Target A1c likely closer to 7-8% based on age/co-morbidities * Pt known to pharmacy from previous admissions/glycemic consults * Pt admitted with long-standing hypoglycemia on admission secondary to N/V, decreased PO intake with insulin pump * Insulin pump removed on admission and pt changed to low dose SQ basal bolus insulin regimen for inpatient use. Will transition back to insulin pump at discharge * Currently titrating insulin doses based on BSG trends. * 15 units of basal insulin * 7 units of prandial/correctional insulin (but poor PO intake) * BSGs ranging 98-173 mg/dl over the past 24hrs * Changes needed to insulin regimen : * AM Fasting BSG = 164mg/dl, slightly above target range--> therefore Basal insulin needs increased * Post-prandial BSGs are near goal range --> no changes needed to CF/CR PLAN FOR INPATIENT GLYCEMIC CONTROL: * Holding outpatient insulin pump * Basal insulin: increase dosing * Lantus 15 units SQ daily - continue to increase back towards outpatient dosing of ~ 20 units/day based on PO intake and BSG trends. * Bolus insulin: no change * NovoLog per scale ACHS or Q6hrs while NPO * Goal Range: Low 110 mg/dL - High 140 mg/dL * Correction Factor: 30 mg/dL/unit * Nutritional / Prandial insulin per carb ratio of 1 unit per 10 grams CHO consumed
[2018-07-11] MEDS: METOCLOPRAMIDE HCL INJ 5 MG/ML 2 ML VIAL IV PRN ×2 (13:16→21:42)
[2018-07-11 16:50] LABS: BUN Creatinine Ratio 14.3 (10-20); Calcium 7.3 mg/dl (8.5-10.1); Creatinine Clr Calc Pharmacy 25.8 ml/min; Est GFR (African American) 28.3; Est GFR (Non-African American) 24.4; Potassium 3.9 mmol/L (3.5-5.1)
[2018-07-11] MEDS: D5W AND NSS 1,000 ML IV SCH (17:35)
--- NOTE | 2018-07-11 17:57 | Family Medicine Progress Note ---
Date of Service July 11, 2018 Assessment & Plan (1) Nausea and vomiting: likely secondary to diabetic gastroparesis - currently resolved with prn Reglan, Zofran - Continue to monitor (2) Rqswy-bb-vhhyigm kidney injury: likely secondary to dehydration in the setting of N/V, CKD secondary to Diabetic nephropathy - Cr slightly elevated from baseline - Continue IV hydration, Baseline around 2.5 - Avoid nephrotoxic agents (3) Diabetic gastroparesis: likely contributor to nausea/vomiting Continue Diazepam, Zofran, Reglan (4) Depression: Depression in setting of recent decision on part of to get a divorce , denies suicidal ideation - reports he has emotional support from his parents - Psychiatry consulted, decision made to Decreases Zoloft given possible contribution to Hyponatremia per psychiatry (5) Hypertension: Continue Amlodipine 10 mg daily Consider additional agent prior to discharge if needed (6) Hyponatremia: (7) Diabetes: Continue insulin pump glycemic consult on board (8) DVT prophylaxis: Heparin Supervising Physician Co-Signing Physician Notes Attending attestation Pt seen and examined in concert with Dr. Linn. In agreement with the documented findings as noted in the resident documentation with any exceptions or additions as noted here. Worsening in nausea and vomiting today which is somewhat improved with regimen. On examination, S1/S2 nl RRR no MCG. CTAB. Abd NT/ND, BS +ve Intractable N/V in the setting of gastroparesis - continue zofran, reglan, diazepam, compazine and IVF. Advance diet as tolerated KRYSTAL on CKD-III - continue IVF and recheck in AM. Type I diabetes on insulin pump - glycemic mgmt consultation appreciated - continue pump Depression tolerating decreased sertraline dose, mood stable Else per resident documentation Subjective Patient complaining of Nausea this morning, Had episode of vomiting in the morning. He denies, fevers, chills, abdominal pain, diarrhea. MOod is still depressed but patient denies suicidal ideation Constitutional: no fever, no chills, no fatigue and no weakness Respiratory: no cough and no dyspnea Cardiovascular: no chest pain, no palpitations, no edema and no calf pain Gastrointestinal: + nausea and + vomiting; no abdominal pain and no change in stools Musculoskeletal: no back pain and no body aches Integumentary: no rash, no lesions and no change in skin color Neurologic: + headache(s); no localized weakness, no tingling and no numbness Psychiatric: + depression and + anxiety; no suicidal ideation and no homicidal ideation Physical Exam 2 Vital Signs (Past 24 Hours): Last Vital Signs Temp 36.9 C 07/11/18 15:33 Pulse 84 07/11/18 15:33 Resp 18 07/11/18 15:33 BP 138/68 07/11/18 15:33 Pulse Ox 93 07/11/18 15:33 Constitutional: WD/WN, vitals as above no acute distress Eyes: PERRL and EOM intact bilaterally ENMT: external ear and nose normal, oropharynx normal Neck: trachea midline, no thyromegaly Respiratory: normal respiratory effort, lungs clear to auscultation Cardiovascular: RRR, no murmur, no edema Gastrointestinal (Abdomen): normal bowel sounds, soft, nontender, no hepatosplenomegaly Skin: no rashes, warm and dry Neurologic: PERRL, EOMI, accommodation nl, no face palsy, no dysarthria CN' s II-XI intact bilaterally and awake Results & Data Laboratory Results Laboratory Results WBC 10.76 K/uL (4.8-10.8) 07/11/18 06:35 RBC 3.27 M/uL (4.7-6.1) L 07/11/18 06:35 Hgb 9.9 g/dL (14.0-18.0) L 07/11/18 06:35 Hct 29.4 % (42-52) L 07/11/18 06:35 MCV 89.9 fL (80-100) 07/11/18 06:35 MCH 30.3 pg (25-34) 07/11/18 06:35 MCHC 33.7 g/dL (32-36) 07/11/18 06:35 RDW Std Deviation 41.8 fL (36.4-46.3) 07/11/18 06:35 RDW Coeff of Kami 12.9 % (11.5-14.5) 07/11/18 06:35 Plt Count 357 K/uL (130-400) 07/11/18 06:35 MPV 8.5 fL (7.4-10.4) 07/11/18 06:35 Immature Gran % (Auto) 0.5 % 07/11/18 06:35 Neut % (Auto) 66.6 % 07/11/18 06:35 Lymph % (Auto) 22.6 % 07/11/18 06:35 [place] % (Auto) 8.6 % 07/11/18 06:35 Eos % (Auto) 1.5 % 07/11/18 06:35 Baso % (Auto) 0.2 % 07/11/18 06:35 Immature Gran # (Auto) 0.05 K/uL (0.00-0.02) H 07/11/18 06:35 Neut # (Auto) 7.17 K/uL (1.4-6.5) H 07/11/18 06:35 Lymph # (Auto) 2.43 K/uL (1.2-3.4) 07/11/18 06:35 [place] # (Auto) 0.93 K/uL (0.11-0.59) H 07/11/18 06:35 Eos # (Auto) 0.16 K/uL (0-0.5) 07/11/18 06:35 Baso # (Auto) 0.02 K/uL (0-0.2) 07/11/18 06:35 PT 9.7 Seconds (9.0-12.0) 07/09/18 20:56 INR 1.0 (0.9-1.1) 07/09/18 20:56 APTT 23.0 Seconds (21.0-31.0) 07/09/18 20:56 PTT Ratio 0.9 07/09/18 20:56 Sodium 136 mmol/L (136-145) 07/11/18 16:07 Potassium 3.9 mmol/L (3.5-5.1) 07/11/18 16:07 Chloride 104 mmol/L (98-107) 07/11/18 16:07 Carbon Dioxide 25 mmol/L (21-32) 07/11/18 16:07 Anion Gap 8.0 (3-11) 07/11/18 16:07 BUN 42 mg/dl (7-18) H 07/11/18 16:07 Creatinine 2.92 mg/dl (0.6-1.4) H 07/11/18 16:07 Est Cr Clr Drug Dosing 25.8 ml/min 07/11/18 16:07 Est GFR ( Amer) 28.3 07/11/18 16:07 Est GFR (Non-Af Amer) 24.4 07/11/18 16:07 BUN/Creatinine Ratio 14.3 (10-20) 07/11/18 16:07 Glucose 103 mg/dl (70-99) H 07/11/18 16:07 POC Glucose 84 (70-99) 07/11/18 16:45 Calcium 7.3 mg/dl (8.5-10.1) L 07/11/18 16:07 Phosphorus 2.7 mg/dl (2.5-4.9) 07/09/18 19:54 Magnesium 2.0 mg/dl (1.8-2.4) 07/09/18 19:54 Total Bilirubin 0.2 mg/dl (0.2-1) 07/10/18 05:54 Direct Bilirubin < 0.1 mg/dl (0-0.2) 07/10/18 05:54 AST 19 U/L (15-37) 07/10/18 05:54 ALT 30 U/L (12-78) 07/10/18 05:54 Alkaline Phosphatase 108 U/L (45-117) 07/10/18 05:54 Total Protein 4.5 gm/dl (6.4-8.2) L D 07/10/18 05:54 Albumin 1.8 gm/dl (3.4-5.0) L 07/10/18 05:54 Globulin 3.5 gm/dl (2.5-4.0) 07/09/18 14:21 Albumin/Globulin Ratio 0.7 (0.9-2) L 07/09/18 14:21 Prealbumin 19.1 mg/dl (20-40) L 07/10/18 05:54 Lipase 78 U/L (73-393) 07/09/18 19:54 TSH 2.380 uIu/ml (0.300-4.500) 07/09/18 14:21 Specimen Hemolysis 07/11/18 16:07 Urine Color Yellow 07/09/18 14:21 Urine Appearance Cloudy (Clear) H 07/09/18 14:21 Urine pH 5.0 (4.5-7.5) 07/09/18 14:21 Ur Specific [place] 1.019 (1.000-1.030) 07/09/18 14:21 Urine Protein 3+ (Negative) H 07/09/18 14:21 Urine Glucose (UA) 3+ (Negative) H 07/09/18 14:21 Urine Ketones Negative (Negative) 07/09/18 14:21 Urine Blood 1+ (Negative) H 07/09/18 14:21 Urine Nitrite Negative (Negative) 07/09/18 14:21 Urine Bilirubin Negative (Negative) 07/09/18 14:21 Urine Urobilinogen Negative (Negative) 07/09/18 14:21 Ur Leukocyte Esterase Negative (Negative) 07/09/18 14:21 Urine WBC (Auto) 10-30 /hpf (0-5) H 07/09/18 14:21 Urine RBC (Auto) 0-4 /hpf (0-4) 07/09/18 14:21 U Hyaline Cast (Auto) 10-30 /lpf (0-5) H 07/09/18 14:21 U Epithel Cells (Auto) >30 /lpf (0-5) H 07/09/18 14:21 Urine Bacteria (Auto) 1+ (Negative) H 07/09/18 14:21 Ur Renal Epithelial Cell 0-5 /lpf (0-5) 07/09/18 14:21 Granular Casts 10-20 /lpf (0) H 07/09/18 14:21 Salicylates < 1.7 mg/dl (2.8-20) L 07/09/18 14:21 Urine Opiates Screen Neg (Neg) 07/09/18 14:21 Ur Methadone, Qual Neg (Neg) 07/09/18 14:21 Acetaminophen 3 ug/ml (10-30) L 07/09/18 14:21 Urine Barbiturates Neg (Neg) 07/09/18 14:21 Ur Phencyclidine (PCP) Neg (Neg) 07/09/18 14:21 U Amphetamin/Meth Scrn Neg (Neg) 07/09/18 14:21 MDMA (Ecstasy) Screen Neg (Neg) 07/09/18 14:21 U Benzodiazepines Scrn Pos (Neg) H 07/09/18 14:21 Ur Cocaine Metabolite Neg (Neg) 07/09/18 14:21 U Marijuana (THC) Screen Neg (Neg) 07/09/18 14:21 Ethyl Alcohol mg/dL < 3.0 mg/dl (0-3) 07/09/18 14:21 Medications Administered Amlodipine Besylate (Norvasc) 10 mg PO QAM [facility] Stop: 08/09/18 08:59 Last Admin: 07/11/18 08:41 Dose: 10 mg Admin: 07/10/18 08:51 Dose: 10 mg Dextrose (Dextrose 50%) 25 - 50 ml IV UD PRN; Protocol PRN Reason: Hypoglycemia Protocol Stop: 08/08/18 19:26 Last Admin: 07/09/18 21:22 Dose: 25 ml Diazepam (Valium) 5 mg PO BID [facility] Stop: 08/08/18 20:59 Last Admin: 07/11/18 08:46 Dose: 5 mg Admin: 07/10/18 20:10 Dose: 5 mg Admin: 07/10/18 08:51 Dose: 5 mg Admin: 07/09/18 22:06 Dose: 5 mg Heparin Sodium (Porcine) (Heparin Sodium (Porcine)) 5,000 units SQ Q8 [facility] Stop: 08/08/18 21:59 Last Admin: 07/11/18 13:21 Dose: Not Given Admin: 07/11/18 04:40 Dose: Not Given Admin: 07/10/18 20:11 Dose: Not Given Admin: 07/10/18 13:24 Dose: Not Given Admin: 07/10/18 05:30 Dose: Not Given Admin: 07/09/18 22:10 Dose: Not Given Dextrose/Sodium Chloride (D5w And Nss) 1,000 mls @ 100 mls/hr IV .Q10H [facility] Stop: 08/10/18 17:29 Last Admin: 07/11/18 17:35 Dose: 100 mls/hr Insulin Aspart (Novolog Flexpen) 0 units SC ACHS [facility]; Protocol Stop: 08/09/18 07:29 Last Admin: 07/11/18 17:58 Dose: Not Given Admin: 07/11/18 13:10 Dose: 3 units Admin: 07/11/18 08:43 Dose: 3 units Admin: 07/10/18 20:11 Dose: 2 units Admin: 07/10/18 18:11 Dose: 2 units Admin: 07/10/18 13:10 Dose: Not Given Admin: 07/10/18 09:10 Dose: 2 units Metoclopramide HCl (Reglan) 10 mg IV Q6H PRN PRN Reason: Nausea Stop: 08/08/18 20:14 Last Admin: 07/11/18 13:16 Dose: 10 mg Miscellaneous (Carbohydrates For Hypoglycemia) 15 - 30 gm PO UD PRN PRN Reason: Hypoglycemia Treatment Stop: 08/08/18 19:26 Last Admin: 07/09/18 20:52 Dose: 15 gm Ondansetron HCl (Zofran) 4 mg IV Q6H PRN PRN Reason: Nausea Stop: 08/08/18 20:12 Last Admin: 07/11/18 17:06 Dose: 4 mg Admin: 07/11/18 10:14 Dose: 4 mg Prochlorperazine (Compazine) 25 mg [place] Q12H JACKI Stop: 08/08/18 19:59 Last Admin: 07/11/18 08:41 Dose: Not Given Admin: 07/10/18 20:11 Dose: Not Given Admin: 07/10/18 08:49 Dose: Not Given Admin: 07/09/18 20:44 Dose: 25 mg Sertraline HCl (Zoloft) 50 mg PO QAM JACKI Stop: 08/10/18 08:59 Last Admin: 07/11/18 08:41 Dose: 50 mg Discontinued Medications Dextrose (Dextrose 50%) 25 ml IV NOW STA Stop: 07/09/18 17:55 Last Admin: 07/09/18 18:06 Dose: 25 ml Hydralazine HCl (Hydralazine Hcl) 5 mg IV NOW ONE Stop: 07/09/18 18:47 Last Admin: 07/09/18 18:51 Dose: 5 mg Sodium Chloride (Nss 1000ml) 1,000 mls @ 999 mls/hr IV .Q1H1M ONE Stop: 07/09/18 16:08 Last Infusion: 07/09/18 16:56 Dose: 0 mls/hr Admin: 07/09/18 15:32 Dose: 999 mls/hr Sodium Chloride (Nss 1000ml) 1,000 mls @ 999 mls/hr IV .Q1H1M ONE Stop: 07/09/18 16:41 Last Infusion: 07/09/18 17:56 Dose: 0 mls/hr Admin: 07/09/18 16:55 Dose: 999 mls/hr Sodium Chloride (Nss 1000ml) 1,000 mls @ 125 mls/hr IV .Q8H JACKI Stop: 07/10/18 11:49 Last Infusion: 07/10/18 11:49 Dose: 0 mls/hr Admin: 07/10/18 03:44 Dose: 125 mls/hr Infusion: 07/10/18 03:44 Dose: 125 mls/hr Admin: 07/09/18 19:59 Dose: 125 mls/hr Sodium Chloride (Nss 1000ml) 1,000 mls @ 100 mls/hr IV .Q10H JACKI Stop: 08/09/18 21:44 Last Infusion: 07/11/18 17:35 Dose: 0 mls/hr Admin: 07/11/18 10:15 Dose: 100 mls/hr Infusion: 07/11/18 10:05 Dose: 100 mls/hr Admin: 07/11/18 00:05 Dose: 100 mls/hr Insulin Aspart (Novolog Flexpen) 0 units SC 0000,0400 JACKI; Protocol Stop: 08/09/18 00:00 Last Admin: 07/11/18 04:39 Dose: Not Given Admin: 07/11/18 00:11 Dose: Not Given Admin: 07/10/18 05:22 Dose: 1 units Admin: 07/10/18 00:07 Dose: Not Given Insulin Glargine (Lantus Solostar Pen) 5 units SC NOW ONE; Protocol Stop: 07/09/18 21:46 Last Admin: 07/09/18 22:06 Dose: 5 units Insulin Glargine (Lantus Solostar Pen) 10 units SC DAILY [facility]; Protocol Stop: 08/09/18 08:59 Last Admin: 07/11/18 08:42 Dose: 10 units Admin: 07/10/18 09:11 Dose: 10 units Insulin Glargine (Lantus Solostar Pen) 5 units SC 07/11/18 JACKI; Protocol Stop: 07/11/18 11:31 Last Admin: 07/11/18 13:10 Dose: 5 units Potassium Chloride (Klor-Con M10) 40 meq PO NOW STA Stop: 07/09/18 19:28 Last Admin: 07/09/18 20:43 Dose: 40 meq Sertraline HCl (Zoloft) 100 mg PO QAM JACKI Stop: 08/09/18 08:59 Last Admin: 07/10/18 08:52 Dose: 100 mg Resident Activity Tracking Resident Involvement: Resident Care Provided Care Provided: [facility] Medicine _ (1) Diabetes Chronic kidney disease stage: Diabetes mellitus complication detail: with nephropathy Diabetes mellitus complication status: with kidney complications 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: Diabetes mellitus macular edema: Diabetes mellitus type: type 1 Diabetic retinopathy severity: Laterality: Proliferative retinopathy type: Qualified Code(s): E10.21 - Type 1 diabetes mellitus with diabetic nephropathy (2) Depression Active/Remission status: currently active Depression Type: major depressive disorder Major depression episode severity: moderate Major depression recurrence: unspecified whether recurrent Psychotic features: Trimester: Qualified Code(s): F32.1 - Major depressive disorder, single episode, moderate (3) Nausea and vomiting Vomiting Intractability: intractable Vomiting type: unspecified Qualified Code(s): R11.2 - Nausea with vomiting, unspecified (4) Hypertension Hypertension type: essential hypertension Qualified Code(s): I10 - Essential (primary) hypertension
[2018-07-12] MEDS: ONDANSETRON INJ 2 MG/ML 2 ML VIAL IV PRN ×3 (00:08→13:14)
[2018-07-12] MEDS: HydrALAZINE HCL 20 MG/ML VIAL IV PRN ×2 (00:08→10:52)
[2018-07-12] MEDS: D5W AND NSS 1,000 ML IV SCH (03:14)
[2018-07-12] MEDS: HEPARIN SOD 5,000 UNIT/0.5 ML VIAL SQ SCH ×3 (05:36→21:51)
[2018-07-12] MEDS: SERTRALINE HCL 50 MG TABLET PO SCH (08:12)
[2018-07-12] MEDS: PROCHLORPERAZINE 25 MG SUPP PR SCH ×2 (08:13→21:42)
[2018-07-12] MEDS: AMLODIPINE BESYLATE 5 MG TAB PO SCH (08:13)
[2018-07-12] MEDS: INSULIN ASPART 100 UNITS/ML 3 ML PEN SC SCH ×4 (08:17→21:47)
[2018-07-12] MEDS: diazePAM 5 MG TABLET PO SCH ×2 (08:21→21:45)
[2018-07-12] MEDS: SODIUM CHLORIDE 0.9% 1000ML 1,000 ML IV SCH ×2 (08:33→19:44)
[2018-07-12] MEDS ORDERED: INSULIN GLARGINE SOLOSTAR 100 UNITS/ML 3 ML PEN SC SCH ×2 (09:00)
--- NOTE | 2018-07-12 09:36 | Family Medicine Progress Note ---
Date of Service July 12, 2018 Assessment & Plan (1) Nausea and vomiting: Mr. De Los Santos is a 47 year old male with history of DM type I with insulin pump in place, with diabetic gastroparesis and retinopathy, CKD stage III, depression/Anxiety presenting with increase in depression symptoms as well as nausea, vomiting, fatigue and poor appetite. - likely secondary to diabetic gastroparesis, in the setting of increased social stressors - continue compazine and diazepam, as well as prn Reglan and Zofran - Given patient's symptoms are not improving, trial of 7.5 mg of Remeron qhs - Patient is scheduled on July [address] Mackay at [facility] (2) Kgvuy-[id number] kidney injury: likely secondary to dehydration in the setting of N/V, CKD secondary to Diabetic nephropathy - Cr slightly elevated from baseline - Continue IV hydration w/NS at 100 mls/hr, Baseline around 2.5 - Creatinine 2.8 today - Avoid nephrotoxic agents (3) Diabetic gastroparesis: - likely contributor to nausea/vomiting - Continue Diazepam, Compazine, Zofran, Reglan - trial of remeron (4) Depression: Depression, worsened by recent divorce from . Denies suicidal ideation - reports he has emotional support from his parents & counsellor - Psychiatry consulted -> decision made to decreases Zoloft given possible contribution to hyponatremia per psychiatry (5) Hypertension: - Continue Amlodipine 10 mg daily - patient's BPs have been on the higher side while here - however likely worsened by repeated vomiting - continue to monitor (6) Hyponatremia: (7) Diabetes: - Continue insulin pump - glycemic consult on board - Sugar spiked this morning to 352 -> Discontinue D5 normal saline and start fluids with just normal saline (8) DVT prophylaxis: - 5,000 units of Heparin SQ Q8H Supervising Physician Co-Signing Physician Notes I personally examined the patient and verified all julien points of history and exam, discussed case, and agree with decision making with Dr Dominguez. Still having lots of dry heaves. Is not really been able to take anything meaningful p.o. No new complaints otherwise. Vitals noted, in general he is appearing miserable due to nausea he has an emesis bag with him and is dry heaving at times while we talk. The remainder of his exam is fortunately benign Intractable nausea and vomiting related to gastroparesiscontinue IV fluids and supportive care for now, he has an appointment at the motility clinic at [place] on July 20, the goal will be to get him to be on to get to the clinic if at all possible. KRYSTAL on CKDcontinue IV fluids and follow its uncertain what his new baseline is , given his rising creatinine over the last 3 or 4 months, but given that he is been nearly constantly acute over the last 3-4 months. Subjective Mr. De Los Santos reports he continues to feel poorly today. He remains with nausea , states that he has had multiple episodes of dry heaves this morning. He also reports a headache. He denies any abdominal pain, fever, chills. He states his last bowel movement was yesterday and normal. He reports when he has flareups of his gastroparesis, this generally takes about 2-3 days to resolve. He continues to remain with a depressed mood. Constitutional: + fatigue; no fever and no chills Respiratory: no cough Cardiovascular: no chest pain Gastrointestinal: + nausea and + vomiting; no abdominal pain Physical Exam 2 Vital Signs (Past 24 Hours): Last Vital Signs Temp 36.5 C 07/12/18 07:23 Pulse 95 H 07/12/18 08:11 Resp 16 07/12/18 07:23 BP 176/92 H 07/12/18 08:11 Pulse Ox 97 07/12/18 07:23 Constitutional: WD/WN, vitals as above appears uncomfortable, laying on side clutching basin Respiratory: normal respiratory effort, lungs clear to auscultation Cardiovascular: RRR, no murmur, no edema Gastrointestinal (Abdomen): Percussion/Palpation: abdomen soft; abdomen nontender, no guarding and abdomen not rigid Skin: no rashes, warm and dry Psychiatric: Orientation: alert Affect: + depressed affect Mood: + depressed mood Results & Data Laboratory Results Laboratory Results - last 24 hr 07/09/18 07/11/18 07/11/18 14:21 16:07 16:45 Sodium 136 Potassium 3.9 Chloride 104 Carbon Dioxide 25 Anion Gap 8.0 BUN 42 H Creatinine 2.92 H Est Cr Clr Drug Dosing 25.8 Est GFR ( Amer) 28.3 Est GFR (Non-Af Amer) 24.4 BUN/Creatinine Ratio 14.3 Glucose 103 H POC Glucose 84 Calcium 7.3 L Beta-Hydroxybutyric Acd Specimen Hemolysis U OH-Alprazolam Confrm NEGATIVE 7-Amino Clonazepam NEGATIVE Ur Nordiazepam Confirm 178 A U OH-ethylflurazepam NEGATIVE U Lorazepam Cnf GC/MS NEGATIVE U Oxazepam Confm GC/MS 214 A Ur Temazepam Confirm 216 A U OH-Triazolam Confirm NEGATIVE U OH-Midazolam Confirm NEGATIVE 07/11/18 07/12/18 07/12/18 20:14 00:04 04:13 Sodium Potassium Chloride Carbon Dioxide Anion Gap BUN Creatinine Est Cr Clr Drug Dosing Est GFR ( Amer) Est GFR (Non-Af Amer) BUN/Creatinine Ratio Glucose POC Glucose 85 107 H 233 H Calcium Beta-Hydroxybutyric Acd Specimen Hemolysis U OH-Alprazolam Confrm 7-Amino Clonazepam Ur Nordiazepam Confirm U OH-ethylflurazepam U Lorazepam Cnf GC/MS U Oxazepam Confm GC/MS Ur Temazepam Confirm U OH-Triazolam Confirm U OH-Midazolam Confirm 07/12/18 07/12/18 07/12/18 06:36 07:38 09:20 Sodium 136 Potassium 3.8 Chloride 102 Carbon Dioxide 23 Anion Gap 11.0 BUN 38 H Creatinine 2.88 H Est Cr Clr Drug Dosing 26.2 Est GFR ( Amer) 28.8 Est GFR (Non-Af Amer) 24.8 BUN/Creatinine Ratio 13.1 Glucose 352 H* POC Glucose 276 H 310 H Calcium 7.8 L Beta-Hydroxybutyric Acd 19.76 H Specimen Hemolysis U OH-Alprazolam Confrm 7-Amino Clonazepam Ur Nordiazepam Confirm U OH-ethylflurazepam U Lorazepam Cnf GC/MS U Oxazepam Confm GC/MS Ur Temazepam Confirm U OH-Triazolam Confirm U OH-Midazolam Confirm 07/12/18 11:30 Sodium Potassium Chloride Carbon Dioxide Anion Gap BUN Creatinine Est Cr Clr Drug Dosing Est GFR ( Amer) Est GFR (Non-Af Amer) BUN/Creatinine Ratio Glucose POC Glucose 299 H Calcium Beta-Hydroxybutyric Acd Specimen Hemolysis U OH-Alprazolam Confrm 7-Amino Clonazepam Ur Nordiazepam Confirm U OH-ethylflurazepam U Lorazepam Cnf GC/MS U Oxazepam Confm GC/MS Ur Temazepam Confirm U OH-Triazolam Confirm U OH-Midazolam Confirm Medications Administered Current Inpatient Medications Acetaminophen (Tylenol) 650 mg PO Q4H PRN PRN Reason: pain/fever Stop: 08/08/18 19:26 Amlodipine Besylate (Norvasc) 10 mg PO QAM [facility] Stop: 08/09/18 08:59 Last Admin: 07/12/18 08:13 Dose: 10 mg Dextrose (Dextrose 50%) 25 - 50 ml IV UD PRN; Protocol PRN Reason: Hypoglycemia Protocol Stop: 08/08/18 19:26 Last Admin: 07/09/18 21:22 Dose: 25 ml Diazepam (Valium) 5 mg PO BID JACKI Stop: 08/08/18 20:59 Last Admin: 07/12/18 08:21 Dose: 5 mg Glucagon (Glucagen) 1 mg SQ UD PRN; Protocol PRN Reason: Hypoglycemia Protocol Stop: 08/08/18 19:26 Glucose (Glucose 40%) 15 - 30 gm PO UD PRN; Protocol PRN Reason: Hypoglycemia Protocol Stop: 08/08/18 19:26 Glucose (Dex4 Glucose) 4 - 8 tabs PO UD PRN; Protocol PRN Reason: Hypoglycemia Protocol Stop: 08/08/18 19:26 Heparin Sodium (Porcine) (Heparin Sodium (Porcine)) 5,000 units SQ Q8 JACKI Stop: 08/08/18 21:59 Last Admin: 07/12/18 13:09 Dose: Not Given Hydralazine HCl (Hydralazine Hcl) 5 mg IV Q4H PRN PRN Reason: hypertension Stop: 08/08/18 19:26 Last Admin: 07/12/18 10:52 Dose: 5 mg Sodium Chloride (Nss 1000ml) 1,000 mls @ 100 mls/hr IV .Q10H JACKI Stop: 08/11/18 08:29 Last Admin: 07/12/18 08:33 Dose: 100 mls/hr Insulin Aspart (Novolog Flexpen) 0 units SC ACHS [facility]; Protocol Stop: 08/09/18 07:29 Last Admin: 07/12/18 13:10 Dose: 7 units Insulin Aspart (Novolog Flexpen) 0 units SC 0000,0400 JACKI; Protocol Stop: 07/13/18 04:01 Insulin Glargine (Lantus Solostar Pen) 18 units SC DAILY [facility]; Protocol Stop: 08/11/18 08:59 Last Admin: 07/12/18 08:24 Dose: 18 units Metoclopramide HCl (Reglan) 10 mg IV Q6H PRN PRN Reason: Nausea Stop: 08/08/18 20:14 Last Admin: 07/12/18 10:52 Dose: 10 mg Mirtazapine (Remeron) 7.5 mg PO HS JACKI Stop: 08/11/18 20:59 Miscellaneous (Carbohydrates For Hypoglycemia) 15 - 30 gm PO UD PRN PRN Reason: Hypoglycemia Treatment Stop: 08/08/18 19:26 Last Admin: 07/09/18 20:52 Dose: 15 gm Miscellaneous Information (Consult Glycemic Management Pharmacy) 1 ea N/A UD PRN PRN Reason: Consult Stop: 08/08/18 19:47 Ondansetron HCl (Zofran) 4 mg IV Q6H PRN PRN Reason: Nausea Stop: 08/08/18 20:12 Last Admin: 07/12/18 13:14 Dose: 4 mg Prochlorperazine (Compazine) 25 mg [place] Q12H JACKI Stop: 08/08/18 19:59 Last Admin: 07/12/18 08:13 Dose: 25 mg Sertraline HCl (Zoloft) 50 mg PO QAM [facility] Stop: 08/10/18 08:59 Last Admin: 07/12/18 08:12 Dose: 50 mg Resident Activity Tracking Resident Involvement: Resident Care Provided Care Provided: [facility] Medicine _ (1) Diabetes Chronic kidney disease stage: Diabetes mellitus complication detail: with nephropathy Diabetes mellitus complication status: with kidney complications 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: Diabetes mellitus macular edema: Diabetes mellitus type: type 1 Diabetic retinopathy severity: Laterality: Proliferative retinopathy type: Qualified Code(s): E10.21 - Type 1 diabetes mellitus with diabetic nephropathy (2) Depression Active/Remission status: currently active Depression Type: major depressive disorder Major depression episode severity: moderate Major depression recurrence: unspecified whether recurrent Psychotic features: Trimester: Qualified Code(s): F32.1 - Major depressive disorder, single episode, moderate (3) Nausea and vomiting Vomiting Intractability: intractable Vomiting type: unspecified Qualified Code(s): R11.2 - Nausea with vomiting, unspecified (4) Hypertension Hypertension type: essential hypertension Qualified Code(s): I10 - Essential (primary) hypertension
[2018-07-12 10:10] LABS: BUN Creatinine Ratio 13.1 (10-20); Calcium 7.8 mg/dl (8.5-10.1); Creatinine Clr Calc Pharmacy 26.2 ml/min; Est GFR (African American) 28.8; Est GFR (Non-African American) 24.8; Potassium 3.8 mmol/L (3.5-5.1)
[2018-07-12] MEDS: METOCLOPRAMIDE HCL INJ 5 MG/ML 2 ML VIAL IV PRN (10:52)
[2018-07-12 13:53] LABS: 7-Aminoclonaz, Confirm NEGATIVE NG/ML (CUTOFF=25); Hydro-Alp Ur, GC/MS NEGATIVE NG/ML (CUTOFF=25); Hydroxyethylflurazepam, Conf NEGATIVE NG/ML (CUTOFF=50); Hydroxytriazolam NEGATIVE NG/ML (CUTOFF=50); Lorazepam, Ur GC/MS NEGATIVE NG/ML (CUTOFF=50); Nordiazepam, Confirm 178 NG/ML (CUTOFF=50); Oxazepam Ur, GC/MS 214 NG/ML (CUTOFF=50); Temazepam, Confirm 216 NG/ML (CUTOFF=50)
[2018-07-12] MEDS: CARBOHYDRATES FOR HYPOGLYCEMIA PO PRN ×3 (20:42→21:20)
[2018-07-12] MEDS: MIRTAZAPINE TAB 15 MG TAB PO SCH (21:43)
[2018-07-13] MEDS: INSULIN ASPART 100 UNITS/ML 3 ML PEN SC SCH ×5 (00:23→17:39)
[2018-07-13] MEDS: SODIUM CHLORIDE 0.9% 1000ML 1,000 ML IV SCH ×3 (05:38→19:53)
[2018-07-13] MEDS: HEPARIN SOD 5,000 UNIT/0.5 ML VIAL SQ SCH ×3 (06:33→21:02)
--- NOTE | 2018-07-13 06:57 | Family Medicine Progress Note ---
Date of Service July 13, 2018 Assessment & Plan (1) Nausea and vomiting: Mr. De Los Santos is a 47 year old male with history of DM type I with insulin pump in place, with diabetic gastroparesis and retinopathy, CKD stage III, depression/Anxiety presenting with increase in depression symptoms as well as nausea, vomiting, fatigue and poor appetite. - likely secondary to diabetic gastroparesis, in the setting of increased social stressors - patient's symptoms improving -> transition IV medications (zofran and reglan) to PO and continue to monitor - continue compazine and diazepam, as well as prn Reglan and Zofran - continue trial of 7.5 mg of Remeron qhs -> unsure if symptoms improved due to addition of remeron vs. normal turnaround time - Patient is scheduled on July [address] Mackay [facility] (2) Jryrp-dy-[id number] kidney injury: likely secondary to dehydration in the setting of N/V, CKD secondary to Diabetic nephropathy - Cr elevated from baseline - baseline during last few visits has been 2.5, however review of prior admissions shows a lower baseline around 1.5 - ?acute worsening of kidney function or is 2.5 his new baseline - increased IV hydration from 100 mls/hr of NS to 150 mls/hr - trend BMP - Creatinine 2.9 today - patient may require outpt nephro f/u on d/c - Avoid nephrotoxic agents (3) Diabetic gastroparesis: - likely contributor to nausea/vomiting -> improving - Continue Diazepam, Compazine, Zofran, Reglan - trial of remeron (4) Depression: Depression, worsened by recent divorce from . Denies suicidal ideation - reports he has emotional support from his parents & counsellor - Psychiatry consulted -> decision made to decreases Zoloft given possible contribution to hyponatremia per psychiatry (5) Hypertension: - Continue Amlodipine 10 mg daily - continue to monitor (6) Hyponatremia: (7) Diabetes: - Continue insulin pump - glycemic consult on board - Had a low last night of 48 which corrected w/administration of orange juice - anticipate improvement in hypoglycemic events w/improved appetite (8) DVT prophylaxis: - 5,000 units of Heparin SQ Q8H Supervising Physician Co-Signing Physician Notes I personally examined the patient and verified all julien points of history and exam, discussed case, and agree with decision making with Dr Dominguez. He is actually feeling a good deal better, and was able to eat eggs for breakfast. He has not vomited since dry heaving yesterday. Vitals noted, in general he is awake and alert appears comfortable and in no distress. HEENT normocephalic atraumatic mucous membranes moist. Skin shows no rashes no pallor or icterus. Intractable nausea and vomiting related to gastroparesishe appears to be showing improvement, continue supportive care and slowly transition to oral regimen, the goal will be to get him to the motility clinic next week. KRYSTAL on CKDcontinue IV fluids, increase for now and repeat BMP in the a.m., it' s uncertain what his new baseline is, given his rising creatinine over the last 3 or 4 months, but given that he is been nearly constantly acute over the last 3 -4 months. Subjective Mr. De Los Santos reports his symptoms are improved today. He denies nausea or vomiting. He states he was able to eat dinner last night and breakfast this morning and had no nausea afterwards. He denies abdominal pain and diarrhea. He states his mood is alright. He was able to ambulate in the halls with PT. Constitutional: no fever and no chills Respiratory: no cough Cardiovascular: no chest pain Gastrointestinal: no abdominal pain, no nausea, no vomiting and no change in bowel habits Physical Exam 2 Vital Signs (Past 24 Hours): Last Vital Signs Temp 36.8 C 07/13/18 06:44 Pulse 64 07/13/18 06:44 Resp 18 07/13/18 06:44 BP 135/76 07/13/18 06:44 Pulse Ox 92 07/13/18 06:44 Constitutional: WD/WN, vitals as above + well hydrated Appears brighter and more energetic today than before. Respiratory: normal respiratory effort, lungs clear to auscultation Cardiovascular: RRR, no murmur, no edema Gastrointestinal (Abdomen): normal bowel sounds, soft, nontender, no hepatosplenomegaly Results & Data Laboratory Results Laboratory Results - last 24 hr 07/12/18 07/12/18 07/12/18 16:57 20:33 20:35 Sodium Potassium Chloride Carbon Dioxide Anion Gap BUN Creatinine Est Cr Clr Drug Dosing Est GFR ( Amer) Est GFR (Non-Af Amer) BUN/Creatinine Ratio Glucose POC Glucose 102 H 48 L* 52 L* Calcium 07/12/18 07/12/18 07/12/18 20:57 21:17 21:42 Sodium Potassium Chloride Carbon Dioxide Anion Gap BUN Creatinine Est Cr Clr Drug Dosing Est GFR ( Amer) Est GFR (Non-Af Amer) BUN/Creatinine Ratio Glucose POC Glucose 48 L* 57 L* 76 Calcium 07/12/18 07/13/18 07/13/18 23:54 00:09 03:58 Sodium Potassium Chloride Carbon Dioxide Anion Gap BUN Creatinine Est Cr Clr Drug Dosing Est GFR ( Amer) Est GFR (Non-Af Amer) BUN/Creatinine Ratio Glucose POC Glucose 84 77 89 Calcium 07/13/18 07/13/18 07/13/18 06:52 07:32 11:36 Sodium 141 Potassium 3.7 Chloride 109 H Carbon Dioxide 26 Anion Gap 6.0 BUN 39 H Creatinine 2.98 H Est Cr Clr Drug Dosing 25.3 Est GFR ( Amer) 27.6 Est GFR (Non-Af Amer) 23.8 BUN/Creatinine Ratio 13.1 Glucose 96 POC Glucose 108 H 306 H Calcium 7.2 L 07/13/18 16:25 Sodium Potassium Chloride Carbon Dioxide Anion Gap BUN Creatinine Est Cr Clr Drug Dosing Est GFR ( Amer) Est GFR (Non-Af Amer) BUN/Creatinine Ratio Glucose POC Glucose 223 H Calcium Medications Administered Current Inpatient Medications Acetaminophen (Tylenol) 650 mg PO Q4H PRN PRN Reason: pain/fever Stop: 08/08/18 19:26 Amlodipine Besylate (Norvasc) 10 mg PO QAM [facility] Stop: 08/09/18 08:59 Last Admin: 07/13/18 08:57 Dose: 10 mg Dextrose (Dextrose 50%) 25 - 50 ml IV UD PRN; Protocol PRN Reason: Hypoglycemia Protocol Stop: 08/08/18 19:26 Last Admin: 07/09/18 21:22 Dose: 25 ml Diazepam (Valium) 5 mg PO BID [facility] Stop: 08/08/18 20:59 Last Admin: 07/13/18 09:02 Dose: 5 mg Glucagon (Glucagen) 1 mg SQ UD PRN; Protocol PRN Reason: Hypoglycemia Protocol Stop: 08/08/18 19:26 Glucose (Glucose 40%) 15 - 30 gm PO UD PRN; Protocol PRN Reason: Hypoglycemia Protocol Stop: 08/08/18 19:26 Glucose (Dex4 Glucose) 4 - 8 tabs PO UD PRN; Protocol PRN Reason: Hypoglycemia Protocol Stop: 08/08/18 19:26 Heparin Sodium (Porcine) (Heparin Sodium (Porcine)) 5,000 units SQ Q8 JACKI Stop: 08/08/18 21:59 Last Admin: 07/13/18 14:38 Dose: 5,000 units Hydralazine HCl (Hydralazine Hcl) 5 mg IV Q4H PRN PRN Reason: hypertension Stop: 08/08/18 19:26 Last Admin: 07/12/18 10:52 Dose: 5 mg Sodium Chloride (Nss 1000ml) 1,000 mls @ 150 mls/hr IV .[id number] JACKI Stop: 08/11/18 08:29 Last Admin: 07/13/18 14:39 Dose: 100 mls/hr Insulin Aspart (Novolog Flexpen) 0 units SC ACHS JACKI; Protocol Stop: 08/09/18 07:29 Last Admin: 07/13/18 12:53 Dose: 8 units Insulin Aspart (Novolog Flexpen) 0 units SC 0000 JACKI; Protocol Stop: 07/14/18 00:01 Insulin Glargine (Lantus Solostar Pen) 14 units SC DAILY JACKI; Protocol Stop: 08/12/18 08:59 Last Admin: 07/13/18 08:57 Dose: 14 units Metoclopramide HCl (Reglan) 10 mg PO Q6 PRN PRN Reason: Nausea Stop: 08/12/18 17:59 Mirtazapine (Remeron) 7.5 mg PO HS JACKI Stop: 08/11/18 20:59 Last Admin: 07/12/18 21:43 Dose: 7.5 mg Miscellaneous (Carbohydrates For Hypoglycemia) 15 - 30 gm PO UD PRN PRN Reason: Hypoglycemia Treatment Stop: 08/08/18 19:26 Last Admin: 07/12/18 21:20 Dose: 15 gm Miscellaneous Information (Consult Glycemic Management Pharmacy) 1 ea N/A UD PRN PRN Reason: Consult Stop: 08/08/18 19:47 Ondansetron HCl (Zofran Odt) 4 mg PO Q6H PRN PRN Reason: Nausea Stop: 08/12/18 16:27 Prochlorperazine (Compazine) 25 mg HI Q12H [facility] Stop: 08/08/18 19:59 Last Admin: 07/13/18 08:59 Dose: 25 mg Sertraline HCl (Zoloft) 50 mg PO QAM [facility] Stop: 08/10/18 08:59 Last Admin: 07/13/18 08:58 Dose: 50 mg Resident Activity Tracking Resident Involvement: Resident Care Provided Care Provided: [facility] _ (1) Diabetes Chronic kidney disease stage: Diabetes mellitus complication detail: with nephropathy Diabetes mellitus complication status: with kidney complications Diabetes mellitus 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 accountant insulin use: Diabetes mellitus macular edema: Diabetes mellitus type: type 1 Diabetic retinopathy severity: Laterality: Proliferative retinopathy type: Qualified Code(s): E10.21 - Type 1 diabetes mellitus with diabetic nephropathy (2) Depression Active/Remission status: currently active Depression Type: major depressive disorder Major depression episode severity: moderate Major depression recurrence: unspecified whether recurrent Psychotic features: Trimester: Qualified Code(s): F32.1 - Major depressive disorder, single episode, moderate (3) Nausea and vomiting Vomiting Intractability: intractable Vomiting type: unspecified Qualified Code(s): R11.2 - Nausea with vomiting, unspecified (4) Hypertension Hypertension type: essential hypertension Qualified Code(s): I10 - Essential (primary) hypertension
[2018-07-13 07:42] LABS: BUN Creatinine Ratio 13.1 (10-20); Calcium 7.2 mg/dl (8.5-10.1); Creatinine Clr Calc Pharmacy 25.3 ml/min; Est GFR (African American) 27.6; Est GFR (Non-African American) 23.8; Potassium 3.7 mmol/L (3.5-5.1)
[2018-07-13] MEDS: AMLODIPINE BESYLATE 5 MG TAB PO SCH (08:57)
[2018-07-13] MEDS: SERTRALINE HCL 50 MG TABLET PO SCH (08:58)
[2018-07-13] MEDS: PROCHLORPERAZINE 25 MG SUPP PR SCH ×2 (08:59→20:45)
[2018-07-13] MEDS ORDERED: INSULIN GLARGINE SOLOSTAR 100 UNITS/ML 3 ML PEN SC SCH ×2 (09:00)
[2018-07-13] MEDS: diazePAM 5 MG TABLET PO SCH ×2 (09:02→20:49)
--- NOTE | 2018-07-13 09:12 | Pharmacy Report ---
Pharmacy Glycemic Short Note 2 - Date of Service July 13, 2018 - Glycemic Short BSG Results (Last 24 hours): 07/12/18 07/12/18 07/12/18 09:20 11:30 16:57 Glucose 352 H* POC Glucose 299 H 102 H 07/12/18 07/12/18 07/12/18 20:33 20:35 20:57 Glucose POC Glucose 48 L* 52 L* 48 L* 07/12/18 07/12/18 07/12/18 21:17 21:42 23:54 Glucose POC Glucose 57 L* 76 84 07/13/18 07/13/18 07/13/18 00:09 03:58 06:52 Glucose 96 POC Glucose 77 89 07/13/18 07:32 Glucose POC Glucose 108 H OUTPATIENT ANTIDIABETIC REGIMEN: * Humalog Pump * Basal rate = ~1 unit/hr * CF = 20mg/dl/unit for BSG > 150 * CR = 1 unit for every 10g CHO ASSESSMENT: * 47yo Type 1 diabetic male with near adequate outpatient control per A1c. * Target A1c likely closer to 7-8% based on age/co-morbidities * Pt known to pharmacy from previous admissions/glycemic consults * Pt admitted with long-standing hypoglycemia on admission secondary to N/V, decreased PO intake with insulin pump * Insulin pump removed on admission and pt changed to low dose SQ basal bolus insulin regimen for inpatient use. Will transition back to insulin pump at discharge * Currently titrating insulin doses based on BSG trends. 07-13-18: * Fasting BSG this am was 108 mg/dL - Patient received higher insulin dosing yesterday of Lantus 18 units due to being started on dextrose infusion the night before. BSGs trended down quickly yesterday down to 52 mg/dL - therefore will use decreased dosing of Lantus for this am of Lantus 14 units * Received total of 33 units of insulin yesterday, of which 18 units were basal - will decrease for this am * CF/CR loosed overnight due to lower BSGs - will continue same for today and trend PLAN FOR INPATIENT GLYCEMIC CONTROL: * Holding outpatient insulin pump * Basal insulin: decrease * Lantus 14 units SQ daily - po intake still poor at this time * Bolus insulin: adjusted last night * NovoLog per scale ACHS or Q6hrs while NPO * Goal Range: Low 100 mg/dL - High 140 mg/dL * Correction Factor: 30 mg/dL/unit * Nutritional / Prandial insulin per carb ratio of 1 unit per 12 grams CHO consumed
[2018-07-13] MEDS ORDERED: ONDANSETRON 4 MG OD TAB PO PRN (16:28)
[2018-07-13] MEDS ORDERED: METOCLOPRAMIDE HCL 10 MG TABLET PO PRN (16:29)
[2018-07-13] MEDS: MIRTAZAPINE TAB 15 MG TAB PO SCH (20:46)
[2018-07-13] MEDS ORDERED: INSULIN ASPART 100 UNITS/ML 3 ML PEN SC SCH (21:00)
[2018-07-14] MEDS: SODIUM CHLORIDE 0.9% 1000ML 1,000 ML IV SCH ×2 (03:07→10:09)
[2018-07-14] MEDS: CARBOHYDRATES FOR HYPOGLYCEMIA PO PRN (04:15)
[2018-07-14] MEDS: HEPARIN SOD 5,000 UNIT/0.5 ML VIAL SQ SCH ×2 (06:08→14:57)
[2018-07-14] MEDS: PROCHLORPERAZINE 25 MG SUPP PR SCH (08:36)
[2018-07-14] MEDS: AMLODIPINE BESYLATE 5 MG TAB PO SCH (08:37)
[2018-07-14] MEDS: SERTRALINE HCL 50 MG TABLET PO SCH (08:37)
[2018-07-14] MEDS: diazePAM 5 MG TABLET PO SCH (08:41)
[2018-07-14] MEDS: INSULIN ASPART 100 UNITS/ML 3 ML PEN SC SCH ×2 (08:45→13:09)
[2018-07-14 08:51] LABS: BUN Creatinine Ratio 13.9 (10-20); Calcium 7.3 mg/dl (8.5-10.1); Creatinine Clr Calc Pharmacy 24.7 ml/min; Est GFR (African American) 26.8; Est GFR (Non-African American) 23.1; Potassium 3.9 mmol/L (3.5-5.1)
[2018-07-14] MEDS ORDERED: INSULIN GLARGINE SOLOSTAR 100 UNITS/ML 3 ML PEN SC SCH (09:00)
[2018-07-14] MEDS ORDERED: INSULIN ASPART 100 UNITS/ML 3 ML PEN SC SCH ×3 (11:30→21:00)
--- NOTE | 2018-07-14 13:30 | Discharge Summary ---
Date of Service July 14, 2018 Admission HPI Per Admitting Provider Mr. De Los Santos is a 47yo C male with history of DM type I with insulin pump in place, with diabetic gastroparesis and retinopathy, CKD stage III, Depression/ Anxiety presenting with increase in depression symptoms as well as nausea, vomiting, fatigue and poor appetite. He was admitted with HIEU following a period of recurrent emesis. He has been from his for 2 years but she filed for divorce on 07/08/18. Family reported sleeping up to 15 hours a day for few days prior to admission and poor PO. He denied purposely restricting but simply has no appetite. 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 He has 2 similar admissions since April. He reports improvement in anxiety, "I'm alot calmer" since starting Zoloft 1 month ago. PHQ 9=22 but no SI. Principal Diagnosis Diabetic Gastroparesis Discharge Exam Constitutional WD/WN, vitals as above + well hydrated; no acute distress Respiratory normal respiratory effort, lungs clear to auscultation Cardiovascular RRR, no murmur, no edema Gastrointestinal (Abdomen) normal bowel sounds, soft, nontender, no hepatosplenomegaly Psychiatric Orientation: alert mood improved today compared w/prior days. pt smiling and interactive Discharge Data Allergies Allergy/AdvReac Type Severity Reaction Status Date / Time shellfish derived Allergy Severe anaphylaxis Verified 07/09/18 14:57 promethazine Allergy Intermediate itchy/hives Verified 07/09/18 14:57 Consultations 07/09/18 16:29 ED Decision to Admit Stat 07/09/18 19:27 Consult Psychiatry Routine Hospital Course (1) Nausea and vomiting: Mr. De Los Santos is a 47 year old male with history of DM type I with insulin pump in place, with diabetic gastroparesis and retinopathy, CKD stage III, depression/Anxiety presenting with increase in depression symptoms as well as nausea, vomiting, fatigue and poor appetite. - likely secondary to diabetic gastroparesis, in the setting of increased social stressors - patient's symptoms improving -> back on home regimen of compazine and diazepam , as well as prn Reglan and Zofran - pt was started on 7.5 mg of Remeron qhs which he tolerated well. Continue this on discharge - Patient is scheduled with Dr. Mackay at the [facility] for further management (2) Lxnrv-wa-ojjyhvh kidney injury: - CKD secondary to Diabetic nephropathy - baseline during last few visits has been 2.5, however review of prior admissions shows a lower baseline around 1.5 - initially thought that worsening creatinine was KRYSTAL in the setting of nausea and vomiting, however despite aggressive fluid resuscitation, pt's creatinine is 3 on day of discharge. - FeNa suggestive of intrinsic disease, pt likely has progression of underlying CKD - recommend outpatient nephrology f/u - Avoid nephrotoxic agents (3) Diabetic gastroparesis: (4) Depression: Depression, worsened by recent divorce from . Denies suicidal or homicidal ideation - reports he has emotional support from his parents & counsellor - Psychiatry consulted -> decision made to decrease Zoloft given possible contribution to hyponatremia per psychiatry (5) Hypertension: (6) Hyponatremia: (7) Diabetes: (8) DVT prophylaxis: Total Time Total Time Spent Total Time Spent (In Minutes): <30 Discharge Plan Discharge Items Patient Disposition: Home - Self-Care Reason For Visit: KRYSTAL,ELECTROLYTE DERANGEMENTS Discharge Diagnosis: Diabetic Gastroparesis Discharge Goals: Decrease discomfort and Improve disease control Activity: Resume your previous activity Non-emergency contact: Primary Care Provider Call non-emergency contact if: you have any medication questions, your symptoms worsen and you have a fever Follow-up/Referrals: Dr. Prashanth Mackay [Other] - 07/20/18 1:30 pm (Please, follow up at [facility] with Dr. Prashanth Mackay on ThursdayJuly 20 at 1:30 pm. *If you have any questions or need to change this appointment, call the office at [phone].) Dr. Carmine Ho [Other] - 07/29/18 1:00 pm (Please, follow up with Dr. Carmine Ho at [facility] on July 29 at 1:00 pm. *This office is located in [facility] at [address] [place] [address] in [place]. You will use the Jeanna Entrance and take the F elevator to the 8th floor. If you need to change this appointment, call the office at [phone]. ) BRADLEY Luu [Outside] - 07/19/18 12:30 pm (intake appt at [facility] on ThursdayJul 19 1230 with Kiana Short) Andrew Li MD [Primary Care Provider] - 07/23/18 9:00 am (Please, follow up at Dr. Li's office on ThursdayJuly 23 at 9:00 am. *If you need to change this appointment, call the office at [phone].) Diet: Carb Count or DM1 Addtl Provider Instructions: Mr. De Los Santos, you were admitted to [facility] due to intractable nausea and vomiting, likely related to your gastroparesis. Nausea and Vomiting - continue to take your regular home medications - you have an appointment with the motility clinic at [facility] [place] (details listed above) - we did start you on another medication called mirtazapine (remeron) which can help with your symptoms. Please continue to take this at nighttime Kidney Function - your kidney function has unfortunately declined over your past few hospital admissions - we recommend that you see a kidney doctor (on site construction superintendent) in clinic. We will arrange an appointment for you. Depression - you were seen by the psychiatric team, who were concerned that your zoloft was causing low levels of sodium - they decreased your dose of zoloft in half If you have fever, chills, worsening nausea/vomiting, or have any thoughts or harming yourself or others, please call your doctor. Prescriptions: New sertraline 50 mg Tablet 50 mg PO QAM 30 Days Qty: 30 RF: 0 mirtazapine 15 mg Tablet 7.5 mg PO HS 30 Days Qty: 30 RF: 0 Continue ondansetron HCl [Zofran] 4 mg Tablet 4 mg PO QID PRN (Reason: Nausea) Qty: 0 RF: 0 prochlorperazine [Compazine] 25 mg Suppository 25 mg LA Q12H Qty: 0 RF: 0 insulin pump-infus. set-meter PUMP 1 dose Not Applicable UD Qty: 0 RF: 0 metoclopramide HCl [Reglan] 10 mg Tablet 10 mg PO QID PRN (Reason: Nausea) Qty: 6 RF: 0 diazepam 5 mg tablet 5 mg PO BID RF: 0 amlodipine 10 mg tablet 10 mg PO QAM RF: 0 Discontinued sertraline 100 mg tablet 100 mg PO QAM RF: 0 Stand-Alone Forms: My [facility] Discharge Orders: Discharge Order (Routine); Ordered 07/14/18 Ordered By: Deborah Dominguez Admission Data Admit Date/Time: 07/09/18 18:12 Attending Provider: Obie Argueta Admit Provider: Marielos Cervantes Primary Care Provider: Andrew Li Other Providers: Marielos Cervantes ; Estefania Sutton ; Manny Hayes Service: Medical Other Interventions: Discharge Summary Assessment (RN) Last Done: 07/14/18 16:31 Supervising Physician Co-Signing Physician Notes I personally examined the patient and verified all julien points of history and exam, discussed case, and agree with decision making with Dr Dominguez. Feeling better, very much wants to go home. We discussed his elevated creatinine in depth. He expresses understanding. Vitals noted, in general he is awake alert oriented x3 pleasant no acute distress. HEENT normal cephalic atraumatic mucous membranes are moist. Skin shows no rashes no pallor or icterus. Intractable nausea and vomiting related to diabetic gastroparesisnow intractable, he is able to eat and drink well and very much wants to go home. He has an appointment at the [facility] clinic in 6 days. We implored him on the importance of making this appointment Acute versus chronic kidney diseasewe discussed this at length, and he has been on IV fluids for several days without any meaningful improvement in his creatinine. He very much wants to go home, we discussed whether or not there was still any degree of a prerenal component to it, and check fractional excretion of sodium. This was well over 1%, suggesting that he does not have a prerenal state at play. Unfortunately this, combined with his recent trend of creatinine over the last several months, combined with his renal ultrasound around New Year's suggests that he probably has deteriorated to more of a baseline stage IV CKD. Avoid nephrotoxins, avoid NSAIDs, outpatient nephrology follow-up. Stable for home Resident Activity Tracking Resident Involvement: Resident Care Provided Care Provided: Adult Hospital Medicine
--- NOTE | 2018-07-14 14:22 | Pharmacy Report ---
Pharmacy Glycemic Short Note 2 - Date of Service July 14, 2018 - Glycemic Short BSG Results (Last 24 hours): 07/13/18 07/13/18 07/13/18 16:25 17:03 20:15 Glucose POC Glucose 223 H 229 H 208 H 07/13/18 07/14/18 07/14/18 23:46 04:09 04:11 Glucose POC Glucose 107 H 68 L* 64 L* 07/14/18 07/14/18 07/14/18 04:28 04:30 07:30 Glucose POC Glucose 69 L* 70 102 H 07/14/18 07/14/18 07:53 11:22 Glucose 120 H POC Glucose 125 H OUTPATIENT ANTIDIABETIC REGIMEN: * Humalog Pump * Basal rate = ~1 unit/hr * CF = 20mg/dl/unit for BSG > 150 * CR = 1 unit for every 10g CHO ASSESSMENT: * 47yo Type 1 diabetic male with near adequate outpatient control per A1c. * Target A1c likely closer to 7-8% based on age/co-morbidities * Pt known to pharmacy from previous admissions/glycemic consults * Pt admitted with long-standing hypoglycemia on admission secondary to N/V, decreased PO intake with insulin pump * Insulin pump removed on admission and pt changed to low dose SQ basal bolus insulin regimen for inpatient use. Will transition back to insulin pump at discharge * Currently titrating insulin doses based on BSG trends. 07-14-18: * Fasting BSG this am 70 mg/dL - had low overnight around 0400 of 64 mg/dL - followed hypoglycemia protocol * Decreased Lantus dosing this am to 13 units daily as patient tends to drop fairly quickly throughout the day * Spoke with patient today in regards to his blood sugar management since he has been fluctuating and having lows * Patient typically has tighter coverage with breakfast and looser CR with lunch and dinner. States that his basal sometimes changes but usually around 15 units/day. Patient denies any lows at home and states his BSGs are fairly well controlled * With reduced Lantus dose this morning and adjusted CF/CR coverage - lunchtime BSG much improved from days prior at 125 mg/dL * Will try and utilize different CF/CR throughout the day to help decrease lows at night 07-13-18: * Fasting BSG this am was 108 mg/dL - Patient received higher insulin dosing yesterday of Lantus 18 units due to being started on dextrose infusion the night before. BSGs trended down quickly yesterday down to 52 mg/dL - therefore will use decreased dosing of Lantus for this am of Lantus 14 units * Received total of 33 units of insulin yesterday, of which 18 units were basal - will decrease for this am * CF/CR loosed overnight due to lower BSGs - will continue same for today and trend PLAN FOR INPATIENT GLYCEMIC CONTROL: * Holding outpatient insulin pump * Basal insulin: decrease this morning * Lantus 13 units SQ daily * Bolus insulin: * NovoLog per scale ACHS or Q6hrs while NPO * Goal Range: Low 100 mg/dL - High 140 mg/dL * CF/CR adjusted for time of the day as below: -for 0730 check: CF = 30; CR = 1 unit per 8 grams CHO consumed -for 1130 and 1630 check: CF = 30; CR = 1 unit per 10 grams CHO consumed -for 2100 check: CF = 40; CR = 1 unit per 13 grams CHO consumed added overnight 0200 check: this check is to ensure patient does not become hypoglycemic No insulin will be given
[2018-07-15] MEDS ORDERED: INSULIN ASPART 100 UNITS/ML 3 ML PEN SC SCH (02:00)
== END 2018-07-14 17:15 | disposition home or self-care (01) | DRG 74 ==
LOC: ED 13:11 → SUATTDRO 18:12 → 4E 18:12

== ENCOUNTER 2018-07-17 11:30 | Inpatient (IN) ==
--- NOTE | 2018-07-17 12:11 | Emergency Department Note ---
Entered by Belinda Whtie acting as a scribe for Jorge Alberto Mae DO History of Present Illness General Chief complaint: Hyperglycemia Stated complaint: SLEEPS, CAN'T KEEP AWAKE, TYPE 1 DIABETIC- 200+ Time Seen by Provider: 07/17/18 11:48 Source: patient Mode of arrival: ambulatory Limitations: no limitations History of Present Illness Provider complaint: Hyperglycemia Onset (ago): hour(s) (this morning) Pain Consistency: + other (worsening) Maximum Pain Intensity: 0 Quality: + other (hyperglycemia) Relieved By: + none Associated symptoms: + other (Additional symptoms: lethargy, slurred speech, depression, leg swelling); no fever/chills, no headaches and no nausea/vomiting Treatments prior to arrival: none The patient is a 47 year old male with a history of type 1 diabetes, hypertension, and stage III chronic kidney disease, and gastroparesis who presents to the Emergency Room with complaints of worsening hyperglycemia starting this morning. The patient reports that his blood sugar was 220 and that he has been feeling especially lethargic today. His family adds that his speech has been slurred and that he has been sleeping excessively and not interacting. Per family, the patient was discharged 2 days ago for nausea, vomiting, and depression. The patient reports that he is currently still depressed but is no longer nauseous and vomiting. He notes that he has been taking his medication as usual and has not tried to take any extra to hurt himself. He further complains of leg swelling but denies any headaches, fevers, and chills. He states that he recently started taking a new blood pressure medication. Home Medications Home Medications Medication Instructions Recorded Confirmed Type ondansetron HCl [Zofran] 4 mg PO QID PRN #0 tab 10/05/15 07/17/18 History prochlorperazine [Compazine] 25 mg [place] Q12H #0 supp 10/05/15 07/17/18 History insulin pump-infus. set-meter 1 dose NOT APPLICABLE UD #0 dose 05/20/16 History metoclopramide HCl [Reglan] 10 mg PO QID PRN #6 tab 11/26/17 07/17/18 History diazepam 5 mg PO BID 06/02/18 07/17/18 History amlodipine 10 mg PO QAM 07/09/18 07/17/18 History mirtazapine 7.5 mg PO HS 30 Days #30 tab 07/14/18 07/17/18 Rx sertraline 50 mg PO QAM 30 Days #30 tab 07/14/18 07/17/18 Rx Allergies Allergy/AdvReac Type Severity Reaction Status Date / Time shellfish derived Allergy Severe anaphylaxis Verified 07/17/18 12:21 promethazine Allergy Intermediate itchy/hives Verified 07/17/18 12:21 Past Med/Surg History Medical History Diabetic nephropathy CKD stage 3 due to type 1 diabetes mellitus Anxiety HTN (hypertension) Gastroparesis (Chronic) Mr. De Los Santos is a 47 yr old male with diabetic gastroparesis. Plan: EGD today if endoscopy can accomodate, if not, this will need to be done tomorrow. Will continue IV fluids, antiemetics and will change Reglan from prn to Q6hrs. May also try e-mycin 250mg Q6hrs if able to obtain as on short supply. Diabetes (Chronic) Acid reflux CKD (chronic kidney disease) Depression Gastroparesis due to DM Hypertension Type I diabetes mellitus Surgical History H/O shoulder surgery History of appendectomy History of hip surgery Family History Grandfather Heart attack Other No significant family history Social History marital status: Legally Current Living Situation: Alone current occupational status: employed Other Information That Helps Us Care for You: No Feels Safe at Home: Yes Safety Concerns: Feels Safe At This Time Smoking Status: Never smoker Tobacco Type: smokeless tobacco Do You Dip or Chew Tobacco: Yes Hx Alcohol Use: No Hx Substance Use: No Beliefs That Will Affect Care: None Preferred Language: Romansh Communication Ability: Effective Pipe Installer Required: No Review of Systems See HPI for pertinent positives & negatives. and A total of 10 systems reviewed and were otherwise negative Physical Exam Vital Signs Vital Signs - 24 hr 07/17/18 11:33 07/17/18 11:56 07/17/18 11:57 Temperature 36.5 C Temperature Source Oral Sepsis Recent Fever Within 48 Hours No Sepsis New/Unexplained Change in Mental Status No Sepsis Action Taken by Nursing No Action Required Pulse Rate 99 H Pulse Rate [Apical] 92 H Pulse Rhythm [Apical] Respiratory Rate 16 11 L Respiratory Effort / Characteristics Non-Labored Non-Labored Spontaneous Respiratory Depth Normal Normal Respiratory Pattern Regular Blood Pressure 150/87 H Blood Pressure [Right Arm] 199/118 H Blood Pressure Mean 108 Blood Pressure Mean [Right Arm] 145 Pulse Oximetry 95 96 95 Oxygen Delivery Method Room Air Room Air Room Air 07/17/18 12:00 07/17/18 13:34 07/17/18 14:00 Temperature Temperature Source Sepsis Recent Fever Within 48 Hours Sepsis New/Unexplained Change in Mental Status Sepsis Action Taken by Nursing Pulse Rate 91 H Pulse Rate [Apical] 94 H 90 Pulse Rhythm [Apical] Regular Respiratory Rate 10 L 10 L 9 L Respiratory Effort / Characteristics Non-Labored Spontaneous Respiratory Depth Normal Respiratory Pattern Regular Blood Pressure 190/104 H Blood Pressure [Right Arm] 202/118 H 187/109 H Blood Pressure Mean 132 Blood Pressure Mean [Right Arm] 146 135 Pulse Oximetry 96 94 93 Oxygen Delivery Method Room Air Room Air Room Air 07/17/18 14:30 07/17/18 15:00 07/17/18 15:30 Temperature Temperature Source Sepsis Recent Fever Within 48 Hours Sepsis New/Unexplained Change in Mental Status Sepsis Action Taken by Nursing Pulse Rate 89 89 87 Pulse Rate [Apical] Pulse Rhythm [Apical] Respiratory Rate 10 L 11 L 11 L Respiratory Effort / Characteristics Respiratory Depth Respiratory Pattern Blood Pressure 183/106 H 201/109 H 179/104 H Blood Pressure [Right Arm] Blood Pressure Mean 131 139 129 Blood Pressure Mean [Right Arm] Pulse Oximetry 95 Oxygen Delivery Method Room Air Room Air 07/17/18 16:00 07/17/18 16:23 Temperature 36.6 C Temperature Source Oral Sepsis Recent Fever Within 48 Hours Sepsis New/Unexplained Change in Mental Status Sepsis Action Taken by Nursing Pulse Rate 86 Pulse Rate [Apical] 88 Pulse Rhythm [Apical] Respiratory Rate 10 L 18 Respiratory Effort / Characteristics Respiratory Depth Respiratory Pattern Blood Pressure 186/105 H Blood Pressure [Right Arm] 160/93 H Blood Pressure Mean 132 Blood Pressure Mean [Right Arm] 115 Pulse Oximetry 95 Oxygen Delivery Method GENERAL: Patient is listless but responds to verbal questioning. He does not appear to be in pain. EYES: The conjunctivae are clear. The pupils are round and reactive. EARS, NOSE, MOUTH AND THROAT: The nose is without any evidence of any deformity. Mucous membranes are moist tongue is midline NECK: The neck is nontender and supple. RESPIRATORY: Normal respiratory effort is noted there is no evidence of wheezing rhonchi or rales CARDIOVASCULAR: Regular rate and rhythm noted there no murmurs rubs or gallops normal S1 normal S2 GASTROINTESTINAL: The abdomen is soft. Bowel sounds are present in all quadrants. Abdomen is nontender MUSCULOSKELETAL/EXTREMITIES: There is no evidence of gross deformity full range of motion is noted in the hips and shoulders SKIN: There is no obvious evidence of any rash. Pedal edema was noted bilaterally. NEUROLOGIC: Patient is oriented to person place and time. Strength was symmetric but diminished. Course 1151: Past medical records reviewed. The patient was evaluated in room C5, and a complete history and physical examination were performed. 1314: I checked on the patient and updated him on his results. 1326: I reviewed the patient's case with Dr. Rey - Tea Cuenca. Dr. Rey will evaluate the patient for further management. Consultations Consultation #1: I reviewed the patient's case with Dr. Candido Cuenca, Tea Lozano. Dr. Rey will evaluate the patient for further management. Time: 13:26 Administered Medications Glucose (Dex4 Glucose) 4 - 8 tabs PO UD PRN; Protocol PRN Reason: Hypoglycemia Protocol Stop: 08/16/18 16:41 Last Admin: 07/17/18 17:48 Dose: 4 tabs Ampicillin Sodium/Sulbactam Sodium 3,000 mg/ Sodium Chloride 108 mls @ 200 mls/ hr IV Q12H JACKI Stop: 07/24/18 17:59 Last Infusion: 07/17/18 18:38 Dose: 0 mls/hr Admin: 07/17/18 18:04 Dose: 200 mls/hr Insulin Aspart (Novolog Flexpen) 0 units SC Q6 JACKI Stop: 08/16/18 17:59 Last Admin: 07/17/18 18:04 Dose: Not Given Discontinued Medications Piperacillin Sod/Tazobactam Sod (Zosyn) 4.5 gm in 120 mls @ 240 mls/hr IV NOW ONE Stop: 07/17/18 13:48 Last Infusion: 07/17/18 15:05 Dose: 0 mls/hr Admin: 07/17/18 14:34 Dose: 240 mls/hr Medical Decision Making Differential Diagnosis Differential diagnoses includes but is not limited to toxic, metabolic, infectious, traumatic, cardiac, neurologic, hematologic, psychiatric and inflammatory etiologies. Medical Records Attestation: I reviewed the patient's medical records. Home Medications Current Medication List: was personally reviewed by me Laboratory Data Attestation: I reviewed the patient's lab results. Result diagrams: 07/17/18 12:05 07/17/18 12:05 Lab Results 07/17/18 07/17/18 07/17/18 Range/Units 11:50 11:50 11:53 WBC (4.8-10.8) K/uL RBC (4.7-6.1) M/uL Hgb (14.0-18.0) g/dL Hct (42-52) % MCV (80-100) fL MCH (25-34) pg MCHC (32-36) g/dL RDW Std Deviation (36.4-46.3) fL RDW Coeff of Kami (11.5-14.5) % Plt Count (130-400) K/uL MPV (7.4-10.4) fL Immature Gran % (Auto) % Neut % (Auto) % Lymph % (Auto) % [place] % (Auto) % Eos % (Auto) % Baso % (Auto) % Immature Gran # (Auto) (0.00-0.02) K/uL Neut # (Auto) (1.4-6.5) K/uL Lymph # (Auto) (1.2-3.4) K/uL [place] # (Auto) (0.11-0.59) K/uL Eos # (Auto) (0-0.5) K/uL Baso # (Auto) (0-0.2) K/uL PT (9.0-12.0) Seconds INR (0.9-1.1) VBG pH (7.36-7.41) VBG pCO2 (38-50) mmHg VBG pO2 mmHg VBG HCO3 mmol/L VBG O2 Saturation % VBG Base Excess mEq/L Barometric Pressure mm/Hg Sodium (136-145) mmol/L Potassium (3.5-5.1) mmol/L Chloride (98-107) mmol/L Carbon Dioxide (21-32) mmol/L Anion Gap (3-11) BUN (7-18) mg/dl Creatinine (0.6-1.4) mg/dl Est Cr Clr Drug Dosing ml/min Est GFR ( Amer) Est GFR (Non-Af Amer) BUN/Creatinine Ratio (10-20) Glucose (70-99) mg/dl POC Glucose 131 H (70-99) Calcium (8.5-10.1) mg/dl Magnesium (1.8-2.4) mg/dl Total Bilirubin (0.2-1) mg/dl AST (15-37) U/L ALT (12-78) U/L Alkaline Phosphatase (45-117) U/L Ammonia (11-32) umol/L Troponin I (0-0.045) ng/ml Total Protein (6.4-8.2) gm/dl Albumin (3.4-5.0) gm/dl Globulin (2.5-4.0) gm/dl Albumin/Globulin Ratio (0.9-2) TSH (0.300-4.500) uIu/ml Free T4 (0.8-1.6) ng/dl Urine Color Yellow Urine Appearance Clear (Clear) Urine pH 5.0 (4.5-7.5) Ur Specific [place] 1.014 (1.000-1.030) Urine Protein 3+ H (Negative) Urine Glucose (UA) Trace H (Negative) Urine Ketones Negative (Negative) Urine Blood Negative (Negative) Urine Nitrite Negative (Negative) Urine Bilirubin Negative (Negative) Urine Urobilinogen Negative (Negative) Ur Leukocyte Esterase Negative (Negative) Urine WBC (Auto) 1-5 (0-5) /hpf Urine RBC (Auto) 0-4 (0-4) /hpf U Hyaline Cast (Auto) 1-5 (0-5) /lpf U Epithel Cells (Auto) 20-30 H (0-5) /lpf Urine Bacteria (Auto) Negative (Negative) Urine Opiates Screen Neg (Neg) Ur Methadone, Qual Neg (Neg) Urine Barbiturates Neg (Neg) Ur Phencyclidine (PCP) Neg (Neg) U Amphetamin/Meth Scrn Neg (Neg) MDMA (Ecstasy) Screen Neg (Neg) U Benzodiazepines Scrn Pos H (Neg) Ur Cocaine Metabolite Neg (Neg) U Marijuana (THC) Screen Neg (Neg) 07/17/18 07/17/18 07/17/18 Range/Units 12:05 12:05 12:05 WBC 12.69 H (4.8-10.8) K/uL RBC 3.61 L (4.7-6.1) M/uL Hgb 10.8 L (14.0-18.0) g/dL Hct 33.3 L (42-52) % MCV 92.2 (80-100) fL MCH 29.9 (25-34) pg MCHC 32.4 (32-36) g/dL RDW Std Deviation 44.2 (36.4-46.3) fL RDW Coeff of Kami 13.1 (11.5-14.5) % Plt Count 379 (130-400) K/uL MPV 8.8 (7.4-10.4) fL Immature Gran % (Auto) 0.9 % Neut % (Auto) 69.4 % Lymph % (Auto) 17.3 % [place] % (Auto) 9.3 % Eos % (Auto) 2.5 % Baso % (Auto) 0.6 % Immature Gran # (Auto) 0.12 H (0.00-0.02) K/uL Neut # (Auto) 8.80 H (1.4-6.5) K/uL Lymph # (Auto) 2.19 (1.2-3.4) K/uL [place] # (Auto) 1.18 H (0.11-0.59) K/uL Eos # (Auto) 0.32 (0-0.5) K/uL Baso # (Auto) 0.08 (0-0.2) K/uL PT 9.1 (9.0-12.0) Seconds INR 0.9 (0.9-1.1) VBG pH (7.36-7.41) VBG pCO2 (38-50) mmHg VBG pO2 mmHg VBG HCO3 mmol/L VBG O2 Saturation % VBG Base Excess mEq/L Barometric Pressure mm/Hg Sodium 139 (136-145) mmol/L Potassium 4.2 (3.5-5.1) mmol/L Chloride 106 (98-107) mmol/L Carbon Dioxide 28 (21-32) mmol/L Anion Gap 5.0 (3-11) BUN 56 H (7-18) mg/dl Creatinine 3.12 H (0.6-1.4) mg/dl Est Cr Clr Drug Dosing 28.3 ml/min Est GFR ( Amer) 26.1 Est GFR (Non-Af Amer) 22.5 BUN/Creatinine Ratio 17.8 (10-20) Glucose 125 H (70-99) mg/dl POC Glucose (70-99) Calcium 8.0 L (8.5-10.1) mg/dl Magnesium 1.9 (1.8-2.4) mg/dl Total Bilirubin 0.2 (0.2-1) mg/dl AST 16 (15-37) U/L ALT 24 (12-78) U/L Alkaline Phosphatase 137 H (45-117) U/L Ammonia (11-32) umol/L Troponin I < 0.015 (0-0.045) ng/ml Total Protein 5.9 L (6.4-8.2) gm/dl Albumin 2.1 L (3.4-5.0) gm/dl Globulin 3.8 (2.5-4.0) gm/dl Albumin/Globulin Ratio 0.5 L (0.9-2) TSH 4.560 H (0.300-4.500) uIu/ml Free T4 (0.8-1.6) ng/dl Urine Color Urine Appearance (Clear) Urine pH (4.5-7.5) Ur Specific [place] (1.000-1.030) Urine Protein (Negative) Urine Glucose (UA) (Negative) Urine Ketones (Negative) Urine Blood (Negative) Urine Nitrite (Negative) Urine Bilirubin (Negative) Urine Urobilinogen (Negative) Ur Leukocyte Esterase (Negative) Urine WBC (Auto) (0-5) /hpf Urine RBC (Auto) (0-4) /hpf U Hyaline Cast (Auto) (0-5) /lpf U Epithel Cells (Auto) (0-5) /lpf Urine Bacteria (Auto) (Negative) Urine Opiates Screen (Neg) Ur Methadone, Qual (Neg) Urine Barbiturates (Neg) Ur Phencyclidine (PCP) (Neg) U Amphetamin/Meth Scrn (Neg) MDMA (Ecstasy) Screen (Neg) U Benzodiazepines Scrn (Neg) Ur Cocaine Metabolite (Neg) U Marijuana (THC) Screen (Neg) 07/17/18 07/17/18 07/17/18 Range/Units 12:05 12:14 12:14 WBC (4.8-10.8) K/uL RBC (4.7-6.1) M/uL Hgb (14.0-18.0) g/dL Hct (42-52) % MCV (80-100) fL MCH (25-34) pg MCHC (32-36) g/dL RDW Std Deviation (36.4-46.3) fL RDW Coeff of Kami (11.5-14.5) % Plt Count (130-400) K/uL MPV (7.4-10.4) fL Immature Gran % (Auto) % Neut % (Auto) % Lymph % (Auto) % [place] % (Auto) % Eos % (Auto) % Baso % (Auto) % Immature Gran # (Auto) (0.00-0.02) K/uL Neut # (Auto) (1.4-6.5) K/uL Lymph # (Auto) (1.2-3.4) K/uL [place] # (Auto) (0.11-0.59) K/uL Eos # (Auto) (0-0.5) K/uL Baso # (Auto) (0-0.2) K/uL PT (9.0-12.0) Seconds INR (0.9-1.1) VBG pH 7.37 (7.36-7.41) VBG pCO2 47 (38-50) mmHg VBG pO2 35 mmHg VBG HCO3 27 mmol/L VBG O2 Saturation 66.1 % VBG Base Excess 0.9 mEq/L Barometric Pressure 748.7 mm/Hg Sodium (136-145) mmol/L Potassium (3.5-5.1) mmol/L Chloride (98-107) mmol/L Carbon Dioxide (21-32) mmol/L Anion Gap (3-11) BUN (7-18) mg/dl Creatinine (0.6-1.4) mg/dl Est Cr Clr Drug Dosing ml/min Est GFR ( Amer) Est GFR (Non-Af Amer) BUN/Creatinine Ratio (10-20) Glucose (70-99) mg/dl POC Glucose (70-99) Calcium (8.5-10.1) mg/dl Magnesium (1.8-2.4) mg/dl Total Bilirubin (0.2-1) mg/dl AST (15-37) U/L ALT (12-78) U/L Alkaline Phosphatase (45-117) U/L Ammonia < 10.0 L (11-32) umol/L Troponin I (0-0.045) ng/ml Total Protein (6.4-8.2) gm/dl Albumin (3.4-5.0) gm/dl Globulin (2.5-4.0) gm/dl Albumin/Globulin Ratio (0.9-2) TSH (0.300-4.500) uIu/ml Free T4 0.80 (0.8-1.6) ng/dl Urine Color Urine Appearance (Clear) Urine pH (4.5-7.5) Ur Specific [place] (1.000-1.030) Urine Protein (Negative) Urine Glucose (UA) (Negative) Urine Ketones (Negative) Urine Blood (Negative) Urine Nitrite (Negative) Urine Bilirubin (Negative) Urine Urobilinogen (Negative) Ur Leukocyte Esterase (Negative) Urine WBC (Auto) (0-5) /hpf Urine RBC (Auto) (0-4) /hpf U Hyaline Cast (Auto) (0-5) /lpf U Epithel Cells (Auto) (0-5) /lpf Urine Bacteria (Auto) (Negative) Urine Opiates Screen (Neg) Ur Methadone, Qual (Neg) Urine Barbiturates (Neg) Ur Phencyclidine (PCP) (Neg) U Amphetamin/Meth Scrn (Neg) MDMA (Ecstasy) Screen (Neg) U Benzodiazepines Scrn (Neg) Ur Cocaine Metabolite (Neg) U Marijuana (THC) Screen (Neg) 07/17/18 07/17/18 07/17/18 Range/Units 17:17 17:18 17:35 WBC (4.8-10.8) K/uL RBC (4.7-6.1) M/uL Hgb (14.0-18.0) g/dL Hct (42-52) % MCV (80-100) fL MCH (25-34) pg MCHC (32-36) g/dL RDW Std Deviation (36.4-46.3) fL RDW Coeff of Kami (11.5-14.5) % Plt Count (130-400) K/uL MPV (7.4-10.4) fL Immature Gran % (Auto) % Neut % (Auto) % Lymph % (Auto) % [place] % (Auto) % Eos % (Auto) % Baso % (Auto) % Immature Gran # (Auto) (0.00-0.02) K/uL Neut # (Auto) (1.4-6.5) K/uL Lymph # (Auto) (1.2-3.4) K/uL [place] # (Auto) (0.11-0.59) K/uL Eos # (Auto) (0-0.5) K/uL Baso # (Auto) (0-0.2) K/uL PT (9.0-12.0) Seconds INR (0.9-1.1) VBG pH (7.36-7.41) VBG pCO2 (38-50) mmHg VBG pO2 mmHg VBG HCO3 mmol/L VBG O2 Saturation % VBG Base Excess mEq/L Barometric Pressure mm/Hg Sodium (136-145) mmol/L Potassium (3.5-5.1) mmol/L Chloride (98-107) mmol/L Carbon Dioxide (21-32) mmol/L Anion Gap (3-11) BUN (7-18) mg/dl Creatinine (0.6-1.4) mg/dl Est Cr Clr Drug Dosing ml/min Est GFR ( Amer) Est GFR (Non-Af Amer) BUN/Creatinine Ratio (10-20) Glucose (70-99) mg/dl POC Glucose 44 L* 44 L* 46 L* (70-99) Calcium (8.5-10.1) mg/dl Magnesium (1.8-2.4) mg/dl Total Bilirubin (0.2-1) mg/dl AST (15-37) U/L ALT (12-78) U/L Alkaline Phosphatase (45-117) U/L Ammonia (11-32) umol/L Troponin I (0-0.045) ng/ml Total Protein (6.4-8.2) gm/dl Albumin (3.4-5.0) gm/dl Globulin (2.5-4.0) gm/dl Albumin/Globulin Ratio (0.9-2) TSH (0.300-4.500) uIu/ml Free T4 (0.8-1.6) ng/dl Urine Color Urine Appearance (Clear) Urine pH (4.5-7.5) Ur Specific [place] (1.000-1.030) Urine Protein (Negative) Urine Glucose (UA) (Negative) Urine Ketones (Negative) Urine Blood (Negative) Urine Nitrite (Negative) Urine Bilirubin (Negative) Urine Urobilinogen (Negative) Ur Leukocyte Esterase (Negative) Urine WBC (Auto) (0-5) /hpf Urine RBC (Auto) (0-4) /hpf U Hyaline Cast (Auto) (0-5) /lpf U Epithel Cells (Auto) (0-5) /lpf Urine Bacteria (Auto) (Negative) Urine Opiates Screen (Neg) Ur Methadone, Qual (Neg) Urine Barbiturates (Neg) Ur Phencyclidine (PCP) (Neg) U Amphetamin/Meth Scrn (Neg) MDMA (Ecstasy) Screen (Neg) U Benzodiazepines Scrn (Neg) Ur Cocaine Metabolite (Neg) U Marijuana (THC) Screen (Neg) 07/17/18 07/17/18 07/17/18 Range/Units 17:35 17:47 18:03 WBC (4.8-10.8) K/uL RBC (4.7-6.1) M/uL Hgb (14.0-18.0) g/dL Hct (42-52) % MCV (80-100) fL MCH (25-34) pg MCHC (32-36) g/dL RDW Std Deviation (36.4-46.3) fL RDW Coeff of Kami (11.5-14.5) % Plt Count (130-400) K/uL MPV (7.4-10.4) fL Immature Gran % (Auto) % Neut % (Auto) % Lymph % (Auto) % [place] % (Auto) % Eos % (Auto) % Baso % (Auto) % Immature Gran # (Auto) (0.00-0.02) K/uL Neut # (Auto) (1.4-6.5) K/uL Lymph # (Auto) (1.2-3.4) K/uL [place] # (Auto) (0.11-0.59) K/uL Eos # (Auto) (0-0.5) K/uL Baso # (Auto) (0-0.2) K/uL PT (9.0-12.0) Seconds INR (0.9-1.1) VBG pH (7.36-7.41) VBG pCO2 (38-50) mmHg VBG pO2 mmHg VBG HCO3 mmol/L VBG O2 Saturation % VBG Base Excess mEq/L Barometric Pressure mm/Hg Sodium (136-145) mmol/L Potassium (3.5-5.1) mmol/L Chloride (98-107) mmol/L Carbon Dioxide (21-32) mmol/L Anion Gap (3-11) BUN (7-18) mg/dl Creatinine (0.6-1.4) mg/dl Est Cr Clr Drug Dosing ml/min Est GFR ( Amer) Est GFR (Non-Af Amer) BUN/Creatinine Ratio (10-20) Glucose (70-99) mg/dl POC Glucose 46 L* 58 L* 84 (70-99) Calcium (8.5-10.1) mg/dl Magnesium (1.8-2.4) mg/dl Total Bilirubin (0.2-1) mg/dl AST (15-37) U/L ALT (12-78) U/L Alkaline Phosphatase (45-117) U/L Ammonia (11-32) umol/L Troponin I (0-0.045) ng/ml Total Protein (6.4-8.2) gm/dl Albumin (3.4-5.0) gm/dl Globulin (2.5-4.0) gm/dl Albumin/Globulin Ratio (0.9-2) TSH (0.300-4.500) uIu/ml Free T4 (0.8-1.6) ng/dl Urine Color Urine Appearance (Clear) Urine pH (4.5-7.5) Ur Specific [place] (1.000-1.030) Urine Protein (Negative) Urine Glucose (UA) (Negative) Urine Ketones (Negative) Urine Blood (Negative) Urine Nitrite (Negative) Urine Bilirubin (Negative) Urine Urobilinogen (Negative) Ur Leukocyte Esterase (Negative) Urine WBC (Auto) (0-5) /hpf Urine RBC (Auto) (0-4) /hpf U Hyaline Cast (Auto) (0-5) /lpf U Epithel Cells (Auto) (0-5) /lpf Urine Bacteria (Auto) (Negative) Urine Opiates Screen (Neg) Ur Methadone, Qual (Neg) Urine Barbiturates (Neg) Ur Phencyclidine (PCP) (Neg) U Amphetamin/Meth Scrn (Neg) MDMA (Ecstasy) Screen (Neg) U Benzodiazepines Scrn (Neg) Ur Cocaine Metabolite (Neg) U Marijuana (THC) Screen (Neg) Imaging Data Radiologist's Impression: Radiology results as stated below per my review and the radiologist's interpretation: SINGLE VIEW CHEST CLINICAL HISTORY: Generalized weakness. FINDINGS: An AP, portable, upright chest radiograph is compared to study dated 06/02/2018. The examination is degraded by portable technique and patient rotation. The heart is enlarged. The pulmonary vasculature is noncongested. There is a left pleural effusion with left basilar consolidation. The right lung appears clear. No pneumothorax is seen. The skeletal structures are osteopenic. The bony thorax is grossly intact. IMPRESSION: 1. Cardiomegaly without radiographic evidence of congestive failure. 2. There is a left pleural effusion with associated left basilar consolidation. This is new from 06/02/2018 and could represent atelectasis versus pneumonia. Clinical correlation will be required and radiographic follow-up to resolution is recommended. Electronically signed by: Dev Burden M.D. 07/17/2018 12:[address] SCAN OF THE BRAIN WITHOUT IV CONTRAST CLINICAL HISTORY: Change in mental status. COMPARISON STUDY: CT of the brain dated 05/20/2016. TECHNIQUE: Unenhanced axial CT scan of the brain is performed from the vertex to the skull base. A dose lowering technique was utilized adhering to the principles of ALARA. CT DOSE: 537.48 mGy.cm FINDINGS: Brain parenchyma: The brain parenchyma is normal in appearance. There is no hemorrhage, mass effect, or evidence of acute territorial ischemia by CT criteria. Mello-white matter differentiation is preserved. No extra-axial fluid collection is seen. Ventricles, sulci, cisterns: Normal in configuration. Intracranial vasculature: The visualized intracranial vasculature at the skull base is normal in appearance. Calvarium: Unremarkable. Sinuses and mastoids: The visualized paranasal sinuses are clear. The mastoid air cells are well pneumatized. Orbits: The bony orbits are grossly intact. IMPRESSION: No acute intracranial abnormality. Electronically signed by: Dev Burden M.D. 07/17/2018 12:47 PM ECG Data Attestation: I personally reviewed and interpreted this ECG as follows: Indication: other (hyperglycemia) Rate (beats per minute): 78 Rhythm: normal sinus Findings: + other (no ST segments); no ectopy Comparison ECG Date: from (07/10/18) Change: no significant change Blood Pressure Blood Pressure Findings: Elevated blood pressure Blood Pressure Disposition: further management by hospitalist MDM Narrative The patient is a 47-year-old male who presented to the emergency department for an evaluation of altered mental status. The patient has a history of diabetes. He was recently seen in our facility for similar complaints. Initially his blood pressure was very high but on subsequent reevaluation is improved. The patient appeared to be more obtunded and I do feel this could be related to either his medications or his current pneumonia that was noted on chest x-ray. I discussed the patient's laboratory and radiographic studies with him as well as his father. I also discussed his case with the on-call [facility] hospitalist. They have agreed to evaluate the patient in the emergency department for further management and disposition. The patient was treated with IV antibiotics. Impression & Plan Altered mental status, Pneumonia Discharge Plan Visit Data *Final* Discharge Date/Time: 07/17/18 16:07 Chief Complaint: Hyperglycemia Stated Complaint: SLEEPS, CAN'T KEEP AWAKE, TYPE 1 DIABETIC- 200+ ED Provider: Jorge Alberto Mae Discharge Problem: Altered mental status, Pneumonia Patient Disposition: Admitted As Inpatient Discharge Instructions Interventions: ED Discharge Assessment Last Done: 07/17/18 16:07 The scribe's documentation has been prepared under my direction and personally reviewed by me in its entirety. I confirm that the note above accurately reflects all work, treatment, procedures, and medical decision making performed by me.
[2018-07-17 12:24] LABS: Appearance Urine Clear (Clear); Bacteria Urine Automated Negative (Negative); Bilirubin Urine Negative (Negative); Color Urine Yellow; Epithelial Cell Urine Auto 20-30 /lpf (0-5); Glucose Urine UA Trace (Negative); Ketones Urine Negative (Negative); Leukocyte Esterase Urine Negative (Negative); Nitrite Urine Negative (Negative); Protein Urine 3+ (Negative); Specific Gravity Urine 1.014 (1.000-1.030); Urobilinogen Urine Negative (Negative)
[2018-07-17 12:27] LABS: Basophils # (auto) 0.08 K/uL (0-0.2); Basophils % (auto) 0.6 %; Eosinophils # (auto) 0.32 K/uL (0-0.5); Eosinophils % (auto) 2.5 %; Hematocrit (blood only) 33.3 % (42-52); Hemoglobin 10.8 g/dL (14.0-18.0); Immature Granulocytes # (auto) 0.12 K/uL (0.00-0.02); Immature Granulocytes % (auto) 0.9 %; Lymphocytes # (auto) 2.19 K/uL (1.2-3.4); Lymphocytes % (auto) 17.3 %; Mean Corpuscular Hgb Conc 32.4 g/dL (32-36); Mean Corpuscular Volume 92.2 fL (80-100); Mean Platelet Volume 8.8 fL (7.4-10.4); Monocytes # (auto) 1.18 K/uL (0.11-0.59); Monocytes % (auto) 9.3 %; Neutrophils % (auto) 69.4 %; Platelet Count 379 K/uL (130-400); RDW Coefficient of Variation 13.1 % (11.5-14.5); RDW Standard Deviation 44.2 fL (36.4-46.3); Red Blood Count 3.61 M/uL (4.7-6.1); White Blood Count 12.69 K/uL (4.8-10.8)
[2018-07-17 12:32] LABS: Base Excess VBG 0.9 mEq/L; Oxygen Saturation VBG 66.1 %; pH VBG 7.37 (7.36-7.41)
[2018-07-17 12:34] LABS: INR 0.9 (0.9-1.1); Prothrombin Time 9.1 Seconds (9.0-12.0)
[2018-07-17 12:42] LABS: Alanine Aminotransferase 24 U/L (12-78); Albumin Level 2.1 gm/dl (3.4-5.0); Aspartate Aminotransferase 16 U/L (15-37); BUN Creatinine Ratio 17.8 (10-20); Blood Urea Nitrogen 56 mg/dl (7-18); Carbon Dioxide 28 mmol/L (21-32); Chloride 106 mmol/L (98-107); Creatinine Clr Calc Pharmacy 28.3 ml/min; Est GFR (African American) 26.1; Est GFR (Non-African American) 22.5; Glucose 125 mg/dl (70-99); Magnesium 1.9 mg/dl (1.8-2.4); Potassium 4.2 mmol/L (3.5-5.1); Sodium 139 mmol/L (136-145)
--- NOTE | 2018-07-17 12:50 | CT Scan Report ---
CT SCAN OF THE BRAIN WITHOUT IV CONTRAST CLINICAL HISTORY: Change in mental status. COMPARISON STUDY: CT of the brain dated 05/20/2016. TECHNIQUE: Unenhanced axial CT scan of the brain is performed from the vertex to the skull base. A d ose lowering technique was utilized adhering to the principles of ALARA. CT DOSE: 537.48 mGy.cm FINDINGS: Brain parenchyma: The brain parenchyma is normal in appearance. There is no hemorrhage, mass effect, or evidence of acute territorial ischemia by CT criteria. Mello-white matter differentiation is preser camden. No extra-axial fluid collection is seen. Ventricles, sulci, cisterns: Normal in configuration. Intracranial vasculature: The visualized intracranial vasculature at the skull base is normal in appe arance. Calvarium: Unremarkable. Sinuses and mastoids: The visualized paranasal sinuses are clear. The mastoid air cells are well pneu matized. Orbits: The bony orbits are grossly intact. IMPRESSION: No acute intracranial abnormality. Electronically signed by: Dev Burden M.D. 07/17/2018 12:47 PM
--- NOTE | 2018-07-17 12:50 | XRay Report ---
SINGLE VIEW CHEST CLINICAL HISTORY: Generalized weakness. FINDINGS: An AP, portable, upright chest radiograph is compared to study dated 06/02/2018. The examin ation is degraded by portable technique and patient rotation. The heart is enlarged. The pulmonary v asculature is noncongested. There is a left pleural effusion with left basilar consolidation. The rig ht lung appears clear. No pneumothorax is seen. The skeletal structures are osteopenic. The bony thor ax is grossly intact. IMPRESSION: 1. Cardiomegaly without radiographic evidence of congestive failure. 2. There is a left pleural effusion with associated left basilar consolidation. This is new from 05/09 and could represent atelectasis versus pneumonia. Clinical correlation will be required and ra diographic follow-up to resolution is recommended. Electronically signed by: Dev Burden M.D. 07/17/2018 12:49 PM
[2018-07-17 12:53] LABS: Albumin Globulin Ratio 0.5 (0.9-2); Alkaline Phosphatase 137 U/L (45-117); Bilirubin,Total 0.2 mg/dl (0.2-1); Globulin 3.8 gm/dl (2.5-4.0); Total Protein 5.9 gm/dl (6.4-8.2); Troponin I < 0.015 ng/ml (0-0.045)
[2018-07-17] MEDS ORDERED: PIPERACILLIN/TAZOBACTAM 4.5 GM/120 ML BAG IV ONE (13:19)
[2018-07-17] MEDS ORDERED: PIPERACILL/TAZOBAC CONSULT ACTIVE PRN (13:19)
[2018-07-17 13:50] LABS: Amphetamines+Metham, Urine Neg (Neg); Barbiturates, Urine Neg (Neg); Benzodiazepine, Urine Pos (Neg); Cocaine, Urine Neg (Neg); MDMA (Ecstacy), Urine Neg (Neg); Methadone, Urine Neg (Neg); Opiate, Urine Neg (Neg); Phencyclidine, Urine Neg (Neg)
--- NOTE | 2018-07-17 16:03 | History & Physical Report ---
Date of Service July 17, 2018 Assessment & Plan (1) Altered mental status: Ddx includes mirtazapine or other medication side effect (started last admission, so only about 5 days worth of dosing), infection (specifically pneumonia), or uremia. TSH is elevated also, but FT4 is 0.8 which is low- normal. Additionally, a TSH one week ago was 2.4, so will refrain from treating for hypothyroidism. Finally, illicit or inappropriate drug use is also possible. Utox showed benzos, but he has script for diazepam, so this is not surprising. It was negative for all other substances. - Hold mirtazapine and other sedating medications - Start Unasyn for possible aspiration pneumonia - Nephrology consult (2) Pneumonia: CXR on 07/17 showed left pleural effusion with associated left basilar consolidation which is new from 06/02/2018. Possibly atelectasis (given his lethargy, very possible) vs. pneumonia. Patient reports no shortness of breath and no cough. Family reports some choking episodes (see HPI), but supports patient's response. - Unasyn for aspiration pneumonia - Procalcitonin - Monitor respiratory status - NPO until he wakes up more, then bedside swallow eval (3) CKD stage 3 due to type 1 diabetes mellitus: From prior admission, appears Cr of ~3 is his new baseline. Has an outpatient appointment to see [facility], but given his current mental status, will see if they have other recs. - Nephrology consult - Avoid IV fluids as family reports continued swelling from prior admission - Avoid nephrotoxic medications (4) Gastroparesis due to DM: Severe from long-standing DM. Home regimen was not overly changed during prior admission. - Holding all but PRN Zofran for now given his NPO status - Restart when taking more oral food. - Hopefully, will be able to see [facility] specialist on Thursday, 07/20 (5) Type I diabetes mellitus: Per father, sugars have been in the 300-range at home. Patient reports basal rate is 20 units/day. Discussed with glycemic pharmacist. - Stop home insulin pump - Lantus 18 units SC now, then daily - Sliding scale with carb correction during meals when eating (6) Hypertension: BP running 160/90 in the hospital so far. - Continue home amlodipine (7) Depression: During prior admission, patient had high PHQ-9, but no SI. At present, he denies SI, but is really too sleepy to answer much regarding depression. Mirtazapine was added during prior admission. - Holding mirtazapine - Continue home sertraline (8) DVT prophylaxis: SCDs - Low risk patient per calculator History of Present Illness Primary Care Provider: Andrew GoelMonica Guillermo 47yo M w/ hx of DM1 and gastroparesis who presents for altered mental status and lethargy. He reports that he's been very tired since being discharged from the hospital 3 days ago for gastroparesis. His father is in the room as well and answers many questions as the patient drifts off to sleep after answering your initial question. Father denies any fevers, chills, shortness of breath, chest pain, or other focal complaints at home, just that he quickly falls asleep and has therefore not been eating as much as usual. The father does report that 2 or 3 times, he has had little hacking/coughing fits like something went down the airway instead of swallowing. The patient denies any dysuria, polyuria, melena, or hematochezia. Allergies Allergy/AdvReac Type Severity Reaction Status Date / Time shellfish derived Allergy Severe anaphylaxis Verified 07/17/18 12:21 promethazine Allergy Intermediate itchy/hives Verified 07/17/18 12:21 Home Medications Home Medications Medication Instructions Recorded Confirmed Type ondansetron HCl [Zofran] 4 mg PO QID PRN #0 tab 10/05/15 07/17/18 History prochlorperazine [Compazine] 25 mg VT Q12H #0 supp 10/05/15 07/17/18 History insulin pump-infus. set-meter 1 dose NOT APPLICABLE UD #0 dose 05/20/16 History metoclopramide HCl [Reglan] 10 mg PO QID PRN #6 tab 11/26/17 07/17/18 History diazepam 5 mg PO BID 06/02/18 07/17/18 History amlodipine 10 mg PO QAM 07/09/18 07/17/18 History mirtazapine 7.5 mg PO HS 30 Days #30 tab 07/14/18 07/17/18 Rx sertraline 50 mg PO QAM 30 Days #30 tab 07/14/18 07/17/18 Rx Past Med/Surg History Medical History Diabetic nephropathy CKD stage 3 due to type 1 diabetes mellitus Anxiety HTN (hypertension) Gastroparesis (Chronic) Mr. De Los Santos is a 47 yr old male with diabetic gastroparesis. Plan: EGD today if endoscopy can accomodate, if not, this will need to be done tomorrow. Will continue IV fluids, antiemetics and will change Reglan from prn to Q6hrs. May also try e-mycin 250mg Q6hrs if able to obtain as on short supply. Diabetes (Chronic) Acid reflux CKD (chronic kidney disease) Depression Gastroparesis due to DM Hypertension Type I diabetes mellitus Surgical History H/O shoulder surgery History of appendectomy History of hip surgery Family History Grandfather Heart attack Other No significant family history Social History marital status: Legally Current Living Situation: Alone current occupational status: employed Other Information That Helps Us Care for You: No Feels Safe at Home: Yes Safety Concerns: Feels Safe At This Time Smoking Status: Never smoker Tobacco Type: smokeless tobacco Do You Dip or Chew Tobacco: Yes Hx Alcohol Use: No Hx Substance Use: No Beliefs That Will Affect Care: None Preferred Language: Thai Communication Ability: Effective Cash Applications Specialist Required: No Review of Systems Constitutional: + fatigue and + weakness; no fever, no chills and no sweats Eyes: no diplopia Ear, Nose, Mouth, Throat: no ear trauma, no nasal discharge and no dental pain Respiratory: no cough, no chest congestion and no dyspnea Cardiovascular: no chest pain, no dyspnea on exertion, no palpitations and no syncope Gastrointestinal: no abdominal pain, no belching, no constipation, no diarrhea/ loose stools, no blood in stools and no melena Musculoskeletal: no back pain, no joint pain and no muscle weakness Integumentary: no rash, no skin ulcer and no erythema Neurologic: no generalized weakness, no loss of sensation, no numbness and no paresthesia Psychiatric: no depression and no anxiety Endocrine: no fatigue, no polydipsia and no polyphagia Physical Exam 2 Vital Signs (Past 24 Hours): Last Vital Signs Temp 36.5 C 07/17/18 11:33 Pulse 87 07/17/18 15:30 Resp 11 L 07/17/18 15:30 BP 179/104 H 07/17/18 15:30 Pulse Ox 95 07/17/18 14:30 Constitutional: WD/WN, vitals as above + lethargic Eyes: EOM intact bilaterally; no conjunctival abnormality ENMT: external ear and nose normal, oropharynx normal Neck: trachea midline, no thyromegaly normal visual inspection Respiratory: normal respiratory effort, lungs clear to auscultation no respiratory distress Cardiovascular: RRR, no murmur, no edema Gastrointestinal (Abdomen): Inspection/Auscultation: abdomen normal to inspection; abdomen not distended Musculoskeletal: no cyanosis or clubbing, extremities motor strength 5/5 Skin: no rashes, warm and dry Neurologic: moves all extremities and awake Psychiatric: Orientation: alert, oriented to person and cooperative _ (1) Altered mental status Altered mental status type: unspecified Coma depth: Coma timing: Qualified Code(s): R41.82 - Altered mental status, unspecified (2) Pneumonia Aspiration pneumonia type: Laterality: left Lung location: lower lobe of lung Pneumonia type: due to unspecified organism Qualified Code(s): J18.1 - Lobar pneumonia, unspecified organism
[2018-07-17] MEDS ORDERED: GLUCAGON FOR INJ 1 MG VIAL SQ PRN (16:42)
[2018-07-17] MEDS ORDERED: ONDANSETRON 4 MG TAB PO PRN (16:42)
[2018-07-17] MEDS ORDERED: ACETAMINOPHEN 325 MG TAB PO PRN (16:42)
[2018-07-17] MEDS ORDERED: CARBOHYDRATES FOR HYPOGLYCEMIA PO PRN (16:42)
[2018-07-17] MEDS ORDERED: ONDANSETRON INJ 2 MG/ML 2 ML VIAL IV PRN (16:42)
[2018-07-17] MEDS ORDERED: DEXTROSE 50% 50 ML SYRINGE IV PRN (16:42)
[2018-07-17] MEDS ORDERED: GLUCOSE 40% GEL 15 GM TUBE PO PRN (16:42)
[2018-07-17] MEDS ORDERED: PHARMACY GLYCEMIC MGMT CONSULT PRN (17:09)
[2018-07-17] MEDS ORDERED: INSULIN GLARGINE SOLOSTAR 100 UNITS/ML 3 ML PEN SC ONE (17:15)
[2018-07-17] MEDS ORDERED: INSULIN ASPART 100 UNITS/ML 3 ML PEN SC SCH ×2 (17:30→18:00)
[2018-07-17] MEDS: GLUCOSE 10 TABS/TUBE PO PRN (17:48)
[2018-07-17] MEDS: AMPICILLIN/SULBACTAM SOD 3,000 MG in 0.9 % SODIUM CHLORIDE 100 ML IV SCH (18:04)
[2018-07-17] MEDS: INSULIN ASPART 100 UNITS/ML 3 ML PEN SC SCH (21:18)
[2018-07-17] MEDS ORDERED: LISINOPRIL 20 MG TAB PO STA (23:43)
[2018-07-18] MEDS: INSULIN ASPART 100 UNITS/ML 3 ML PEN SC SCH ×6 (00:34→21:59)
[2018-07-18] MEDS ORDERED: INSULIN GLARGINE SOLOSTAR 100 UNITS/ML 3 ML PEN SC STA (00:47)
[2018-07-18] MEDS: AMPICILLIN/SULBACTAM SOD 3,000 MG in 0.9 % SODIUM CHLORIDE 100 ML IV SCH ×2 (04:42→17:41)
[2018-07-18 07:21] LABS: Hematocrit (blood only) 27.2 % (42-52); Hemoglobin 8.8 g/dL (14.0-18.0); Mean Corpuscular Hgb Conc 32.4 g/dL (32-36); Mean Corpuscular Volume 93.2 fL (80-100); Mean Platelet Volume 8.6 fL (7.4-10.4); Platelet Count 325 K/uL (130-400); RDW Coefficient of Variation 13.2 % (11.5-14.5); RDW Standard Deviation 44.6 fL (36.4-46.3); Red Blood Count 2.92 M/uL (4.7-6.1); White Blood Count 11.42 K/uL (4.8-10.8)
[2018-07-18 07:55] LABS: BUN Creatinine Ratio 17.9 (10-20); Calcium 7.7 mg/dl (8.5-10.1); Est GFR (African American) 25.7; Est GFR (Non-African American) 22.2; Magnesium 1.8 mg/dl (1.8-2.4); Potassium 4.6 mmol/L (3.5-5.1)
[2018-07-18] MEDS: LISINOPRIL 10 MG TAB PO SCH (08:01)
[2018-07-18] MEDS: SERTRALINE HCL 50 MG TABLET PO SCH (08:02)
[2018-07-18] MEDS: AMLODIPINE BESYLATE 5 MG TAB PO SCH (08:02)
[2018-07-18] MEDS ORDERED: PROCHLORPERAZINE 5 MG in SYRINGE 4 ML IV PRN (09:42)
[2018-07-18] MEDS ORDERED: diazePAM 5 MG TABLET PO ONE (09:42)
[2018-07-18] MEDS: CARVEDILOL 12.5 MG TAB PO SCH ×2 (09:52→21:59)
[2018-07-18] MEDS: ONDANSETRON INJ 2 MG/ML 2 ML VIAL IV SCH ×3 (09:56→21:59)
[2018-07-18] MEDS ORDERED: SODIUM CHLORIDE 0.45 % 1,000 ML IV SCH (10:00)
[2018-07-18] MEDS: METOCLOPRAMIDE HCL INJ 5 MG/ML 2 ML VIAL IV PRN ×2 (10:53→17:39)
--- NOTE | 2018-07-18 11:31 | Nephrology Consultation ---
Date of Consultation July 18, 2018 Assessment & Plan (1) KRYSTAL (acute kidney injury): Patient with acute kidney injury on CKD. Baseline creatinine of 2 now creatinine up to 3.1. Patient with Cr in 1.5 range between November and Apr 2018, cr in the 2's in Jun 2018 and now up to 3.1. Etiology is likely multifactorial including pre renal azotemia in setting of GI fluid losses and rapidly progressive diabetic nephropathy. UA does not show an active sediment. he had a kidney stone on previous ultrasound. Will repeat renal U/S to rule out obstruction. Agree with gentle IV fluids given continued vomiting. Will obtain a urine protein to creatinine ratio. The leaflets are stable and no indication for renal replacement therapy at the moment. We will monitor renal function with daily BMPs. (2) Hypertension: Blood pressure is above target today. Patient is on amlodipine 10 mg daily home dose. 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 Will check iron panel. No indication for transfusion at the moment. History of Present Illness Reason for Consultation: KRYSTAL on CKD Requesting Physician: Candido Trotter MD Attending Physician: Obie Argueta DO History of Present Illness This is a 47-year-old male with type 1 diabetes, hypertension, diabetic gastroparesis, depression and CKD stage III with baseline creatinine of 2 was admitted on 07/17/2018 with altered mental status. He has been found to have worsening renal function with a creatinine now at 3.1. He had a creatinine of 1.5 in November - April 2018. Creatinine in the toes in June 2018. His blood pressure is also high with a systolic between 177-200. He denied NSAID use. He has had on and off nausea and vomiting due to gastroparesis. He does not eat or drink well. Blood sugars have been erratic. He had a renal ultrasound about 2 months ago which showed 12.7 cm right kidney and 11.9 cm left kidney with a 7 mm stone which was nonobstructive. This morning patient was retching and not giving much history as he was in moderate distress. Allergies Allergy/AdvReac Type Severity Reaction Status Date / Time shellfish derived Allergy Severe anaphylaxis Verified 07/17/18 12:21 promethazine Allergy Intermediate itchy/hives Verified 07/17/18 12:21 Home Medications Home Medications Medication Instructions Recorded Confirmed Type ondansetron HCl [Zofran] 4 mg PO QID PRN #0 tab 10/05/15 07/17/18 History prochlorperazine [Compazine] 25 mg DC Q12H #0 supp 10/05/15 07/17/18 History insulin pump-infus. set-meter 1 dose NOT APPLICABLE UD #0 dose 05/20/16 History metoclopramide HCl [Reglan] 10 mg PO QID PRN #6 tab 11/26/17 07/17/18 History diazepam 5 mg PO BID 06/02/18 07/17/18 History amlodipine 10 mg PO QAM 07/09/18 07/17/18 History mirtazapine 7.5 mg PO HS 30 Days #30 tab 07/14/18 07/17/18 Rx sertraline 50 mg PO QAM 30 Days #30 tab 07/14/18 07/17/18 Rx Patient History Medical History Diabetic nephropathy CKD stage 3 due to type 1 diabetes mellitus Anxiety HTN (hypertension) Gastroparesis (Chronic) Mr. De Los Santos is a 47 yr old male with diabetic gastroparesis. Plan: EGD today if endoscopy can accomodate, if not, this will need to be done tomorrow. Will continue IV fluids, antiemetics and will change Reglan from prn to Q6hrs. May also try e-mycin 250mg Q6hrs if able to obtain as on short supply. Diabetes (Chronic) Acid reflux CKD (chronic kidney disease) Depression Gastroparesis due to DM Hypertension Type I diabetes mellitus Surgical History H/O shoulder surgery History of appendectomy History of hip surgery Family History Grandfather Heart attack Other No significant family history Social History marital status: Legally Current Living Situation: Alone current occupational status: employed Other Information That Helps Us Care for You: No Feels Safe at Home: Yes Safety Concerns: Feels Safe At This Time Smoking Status: Never smoker Tobacco Type: smokeless tobacco Do You Dip or Chew Tobacco: Yes Hx Alcohol Use: No Hx Substance Use: No Beliefs That Will Affect Care: None Preferred Language: Syrian Communication Ability: Effective Otolaryngologist Required: No Review of Systems Constitutional: + fatigue, + weakness and + anorexia Respiratory: no dyspnea Cardiovascular: no chest pain with activity Gastrointestinal: + abdominal pain, + nausea and + vomiting Genitourinary (Male): no urinary frequency, no urinary hesitancy, no nocturia, no hematuria and no flank pain Neurologic: + generalized weakness Physical Exam 2 Vital Signs (Past 24 Hours): Last Vital Signs Temp 36.6 C 07/18/18 07:24 Pulse 87 07/18/18 07:24 Resp 16 07/18/18 07:24 BP 177/99 H 07/18/18 07:24 Pulse Ox 96 07/18/18 07:24 Physical Exam: General exam: In moderate distress due to vomiting HEENT: Pupils are equal and reactive to light Neck: No JVD, neck is supple trachea is midline Respiratory system: Clear breath sounds bilaterally. Gastrointestinal: Abdomen is soft, non distended, non tender, bowel sounds are present CVS: Regular rate and rhythm. No murmurs, rubs or gallops Musculoskeletal: No joint or muscle tenderness Extremities: Non tender, 2+ edema, peripheral pulses are present Neuro: Oriented, no tremors, no focal neurological deficits Skin: No rashes Results & Data Laboratory Results Labs reviewed including potassium of 4.6, creatinine of 3.1. Urinalysis showing 3+ protein and about 5 WBCs per high-power field and 1-4 red blood cells per high-power field _ (1) Hypertension Hypertension type: essential hypertension Qualified Code(s): I10 - Essential (primary) hypertension
--- NOTE | 2018-07-18 12:33 | Ultrasound Report ---
RENAL ULTRASOUND HISTORY: KRYSTAL on CKD ? obstruction COMPARISON: Renal ultrasound 06/06/2018. FINDINGS: Right kidney: 12.7 cm. There is a 7 mm stone within the lower pole, unchanged. No hydronephrosis. Inc reased cortical echogenicity is again noted, unchanged. Left kidney: 11.9 cm. An 8 mm cyst within the lower pole. No hydronephrosis. Increased cortical echog enicity is again noted, unchanged. Bladder: No bladder wall thickening. The bilateral ureteral jets were identified. The bladder is over ly distended with a volume of 710 cc. IMPRESSION: 1. No hydronephrosis. 2. Right-sided nephrolithiasis, unchanged. 3. Echogenic kidneys consistent with medical renal disease. 4. Distended bladder. Electronically signed by: Cristiano Brown M.D. 07/18/2018 12:31 PM
[2018-07-18] MEDS: GLUCOSE 10 TABS/TUBE PO PRN (14:01)
[2018-07-18] MEDS: D5W AND 1/2NSS 1,000 ML IV SCH (14:37)
[2018-07-18 15:19] LABS: Creatinine Urine Random 30.2 mg/dl; Total Protein Urine Random 247.6 mg/dl (0-11.9)
--- NOTE | 2018-07-18 15:19 | Pharmacy Report ---
Glycemic Control Consultation - Date of Service July 18, 2018 - Scope Scope: Glycemic Pharmacist consulted by Dr Rey on 07/17/18 for glycemic control and to write orders per [facility] inpatient glycemic control protocol - Objective Weight: 71 kg Accuchecks BSG (last 24hrs): 07/17/18 07/17/18 07/17/18 17:17 17:18 17:35 Glucose POC Glucose 44 L* 44 L* 46 L* 07/17/18 07/17/18 07/17/18 17:35 17:47 18:03 Glucose POC Glucose 46 L* 58 L* 84 07/17/18 07/18/18 07/18/18 19:48 00:25 04:09 Glucose POC Glucose 117 H 277 H 195 H 07/18/18 07/18/18 07/18/18 06:36 07:40 11:17 Glucose 123 H POC Glucose 100 H 73 07/18/18 07/18/18 07/18/18 13:30 13:31 13:55 Glucose POC Glucose 64 L* 68 L* 62 L* 07/18/18 14:25 Glucose POC Glucose 87 Laboratory Data (last 24hrs): 07/18/18 06:36 Potassium 4.6 Carbon Dioxide 27 Anion Gap 6.0 Creatinine 3.16 H Est Cr Clr Drug Dosing 28.0 - Recent Pertinent Medications Outpatient Anti-diabetic Regimen: * Insulin pump * carb ratio 1 unit per 10 grams of carb * correction factor of 20 mg/dL/unit (start at blood sugar of 150 or higher) * A1c = 8.4 % 06/03/18 The patient is currently receiving: * Basal insulin: Lantus 18 units x 1 ordered for 210 am * Correctional Insulin: Novolog Correction per scale ACHS Goal Range: Low 100 mg/dL - High 140 mg/dL Correction Factor: 30 mg/dL/unit * Prandial insulin: Per carb ratio of 1 unit per 12 grams CHO consumed - Assessment & Plan Assessment & Plan: ASSESSMENT: * Mr. De Los Santos is a 47 yr old male admitted with AMS, possible pneumonia and acute on chronic kidney impairment. * He is known to the glycemic service from previous admissions. He was most recently here 07/09-07/14. He was taken off his pump and managed with SQ basal + bolus insulin and required ~20-37 units of insulin per day (basal dose ranged from 10-18 units). * His pump was also removed this admission. A dose of Lantus 18 units SQ was ordered for 2/10 AM (given @ 0215). He is ordered a diet but oral intake has been poor so far today. His BSGs have been trending downward throughout the day ; 100, 73, 64 mg/dL. Hospitalist service started D5 1/2 NS at 80 ml/hr. I will hold Lantus until evidence of BSG recovery. PLAN FOR INPATIENT GLYCEMIC CONTROL * Basal insulin * Lantus 18 units SQ given at 0215 * Further Lantus doses to be determined on 07/19 once fasting BSG is available * Bolus insulin - loosen carb ratio * NovoLog per scale ACHS or Q6hrs while NPO * Goal Range: Low 100 mg/dL - High 140 mg/dL * Correction Factor: 30 mg/dL/unit * Nutritional / Prandial insulin per carb ratio of 1 unit per 15 grams CHO consumed * Please note that the plan above was derived based on current level of insulin resistance and hospital stress. These recommendations are appropriate for inpatient admission only. Plan of care upon discharge will need to be reassessed to avoid potential outpatient hypo/hyperglycemia. Thank you.
--- NOTE | 2018-07-18 17:50 | Hospitalist Progress Note ---
Date of Service July 18, 2018 Assessment & Plan (1) Altered mental status: Seems to be multifactorial -Mirtazapine recently started, he tolerated it well for several days in the hospital, but certainly it can be sedating. This is on hold. -He was also on Valium at baseline, this was on hold, but given that his nausea has returned we will resume this. -Effects from the pneumonia are likely at play as well. -Fortunately his mental status appears to have returned to baseline. (2) Pneumonia: CXR on 07/17 showed left pleural effusion with associated left basilar consolidation which is new from 06/02/2018. -Certainly with all of his vomiting and aspiration pneumonia would be quite probable -Continue Unasyn, transition to Augmentin when it is time for discharge. -Continue supportive care, he is oxygenating okay, and does not septic. (3) CKD stage 3 due to type 1 diabetes mellitus: From prior admission, appears Cr of ~3 is his new baseline. Continue hydration, certainly prerenal contributions are likely large. Nephrology input appreciated. Continue to follow closely. (4) Gastroparesis due to DM: Severe from long-standing DM. Home regimen was not overly changed during prior admission. -Resume home meds, as well as IV support for his nausea based off of what was helping him during his last admission. -If at all possible it is imperative to get him home in the next day or so because on the he has an appointment with the motility clinic in [place]. -In addition to his gastroparesis, significant life stressors are likely playing a role in why his nausea and vomiting is been so much worse recently (5) Type I diabetes mellitus: -Continue insulin management (6) Hypertension: -Continue to follow blood pressures - Continue home amlodipine (7) Depression: During prior admission, patient had high PHQ-9, but no SI. At present, he denies SI, but is really too sleepy to answer much regarding depression. Mirtazapine was added during prior admission. - Holding mirtazapine due to possible contribution of sedation, however given that it seemed to be helping with sleep and seemed to be helping with his appetite, I would wonder if his current sedation was not a "perfect storm" of medication side effect with the mirtazapine as well as effect from the pneumonia. - Continue home sertraline (8) DVT prophylaxis: SCDs - Low risk patient per calculator Subjective Mentally feeling better and more awake. He is not confused anymore, he knows where he is and what is going on. Unfortunately he has started to feel nauseated and have a little bit of dry heaves again No significant cough chest pain or shortness of breath. Review of Systems All systems reviewed & are unremarkable except as noted in HPI & below Physical Exam 2 Vital Signs (Past 24 Hours): Last Vital Signs Temp 36.4 C L 07/18/18 15:22 Pulse 82 07/18/18 15:22 Resp 19 07/18/18 15:22 BP 160/90 H 07/18/18 15: Pulse Ox 96 07/18/18 15:22 Physical Exam: General he is awake and alert and oriented x3 pleasant laying on the side of the bed hanging over the garbage can appearing nauseated. HEENT normocephalic atraumatic mucous membranes are moist. Cardio is regular without rubs murmurs gallops. Lungs show diminished air entry base right, with a E to a egophony present. No rales rhonchi or wheezes otherwise abdomen is soft nondistended nontender no masses or organomegaly. Skin shows no rashes no pallor or icterus. Neuro shows no focal deficits. Cranial nerves II through XII are grossly intact gross motor and sensory are intact. Mental status appears to be around normal _ (1) Altered mental status Altered mental status type: unspecified Coma depth: Coma timing: Qualified Code(s): R41.82 - Altered mental status, unspecified (2) Pneumonia Aspiration pneumonia type: Laterality: left Lung location: lower lobe of lung Pneumonia type: due to unspecified organism Qualified Code(s): J18.1 - Lobar pneumonia, unspecified organism
[2018-07-18] MEDS: diazePAM 5 MG TABLET PO SCH (22:05)
[2018-07-19] MEDS: D5W AND 1/2NSS 1,000 ML IV SCH (03:05)
[2018-07-19] MEDS: ONDANSETRON INJ 2 MG/ML 2 ML VIAL IV SCH (03:05)
[2018-07-19] MEDS: AMPICILLIN/SULBACTAM SOD 3,000 MG in 0.9 % SODIUM CHLORIDE 100 ML IV SCH (05:04)
[2018-07-19 05:55] LABS: Basophils # (auto) 0.06 K/uL (0-0.2); Basophils % (auto) 0.6 %; Eosinophils # (auto) 0.13 K/uL (0-0.5); Eosinophils % (auto) 1.2 %; Hematocrit (blood only) 25.2 % (42-52); Hemoglobin 8.3 g/dL (14.0-18.0); Immature Granulocytes # (auto) 0.07 K/uL (0.00-0.02); Immature Granulocytes % (auto) 0.6 %; Lymphocytes % (auto) 20.3 %; Mean Corpuscular Hgb Conc 32.9 g/dL (32-36); Mean Corpuscular Volume 93.3 fL (80-100); Mean Platelet Volume 8.5 fL (7.4-10.4); Monocytes # (auto) 0.98 K/uL (0.11-0.59); Neutrophils # (auto) 7.42 K/uL (1.4-6.5); Neutrophils % (auto) 68.3 %; Platelet Count 318 K/uL (130-400); RDW Coefficient of Variation 13.3 % (11.5-14.5); RDW Standard Deviation 44.6 fL (36.4-46.3); White Blood Count 10.86 K/uL (4.8-10.8)
[2018-07-19 06:25] LABS: RBC Morphology Unremarkable
[2018-07-19 06:29] LABS: BUN Creatinine Ratio 15.6 (10-20); Calcium 7.3 mg/dl (8.5-10.1); Est GFR (African American) 25.7; Est GFR (Non-African American) 22.2; Potassium 4.1 mmol/L (3.5-5.1)
[2018-07-19] MEDS: CARVEDILOL 12.5 MG TAB PO SCH (08:45)
[2018-07-19] MEDS: INSULIN ASPART 100 UNITS/ML 3 ML PEN SC SCH (08:45)
[2018-07-19] MEDS: LISINOPRIL 10 MG TAB PO SCH (08:45)
[2018-07-19] MEDS: SERTRALINE HCL 50 MG TABLET PO SCH (08:45)
[2018-07-19] MEDS: AMLODIPINE BESYLATE 5 MG TAB PO SCH (08:46)
[2018-07-19] MEDS: diazePAM 5 MG TABLET PO SCH (08:49)
[2018-07-19] MEDS ORDERED: INSULIN GLARGINE SOLOSTAR 100 UNITS/ML 3 ML PEN SC SCH (09:00)
[2018-07-19] MEDS ORDERED: ONDANSETRON INJ 2 MG/ML 2 ML VIAL IV PRN (09:45)
--- NOTE | 2018-07-19 10:07 | Discharge Summary ---
Date of Service July 19, 2018 Admission HPI Per Admitting Provider 47yo M w/ hx of DM1 and gastroparesis who presents for altered mental status and lethargy. He reports that he's been very tired since being discharged from the hospital 3 days ago for gastroparesis. His father is in the room as well and answers many questions as the patient drifts off to sleep after answering your initial question. Father denies any fevers, chills, shortness of breath, chest pain, or other focal complaints at home, just that he quickly falls asleep and has therefore not been eating as much as usual. The father does report that 2 or 3 times, he has had little hacking/coughing fits like something went down the airway instead of swallowing. The patient denies any dysuria, polyuria, melena, or hematochezia. Principal Diagnosis PNA Discharge Exam Constitutional WD/WN, vitals as above Eyes PERRL, conjunctivae normal, anicteric sclerae ENMT external ear and nose normal, oropharynx normal Respiratory normal respiratory effort, lungs clear to auscultation Cardiovascular RRR, no murmur, no edema Gastrointestinal (Abdomen) normal bowel sounds, soft, nontender, no hepatosplenomegaly Skin no rashes, warm and dry Psychiatric A+Ox3, euthymic affect Discharge Data Allergies Allergy/AdvReac Type Severity Reaction Status Date / Time shellfish derived Allergy Severe anaphylaxis Verified 07/17/18 12:21 promethazine Allergy Intermediate itchy/hives Verified 07/17/18 12:21 Consultations 07/17/18 13:30 ED Decision to Admit Stat 07/17/18 16:42 Consult Nephrology Routine Ordered Studies 07/17/18 11:55 CT head/brain wo con Stat 07/18/18 11:14 US renal/blad retro comp Routine Hospital Course (1) Pneumonia: 47yo M with PMH of DM1, HTN, CKD III, and gastroparesis presented to [facility] om 07/17 for altered mental status and lethargy. Had been here previously 3 days prior with gastroparesis and reported that he'd been very tired since being discharged. His father answered most of the initial questions since patient drifted off to sleep many times. Reported worsening hyperglycemia ( BSGs in 220s range), slurred speech, increased speech, and coughing/hacking. In ER, CXR showed a left pleural effusion with associated left basilar consolidation, new from 06/02/2018. CT brain was negative. Pt was admitted and the following was his medical course for his stay here. For pt's altered mental status: likely was multifactorial. Mirtazapine was recently started, and he tolerated it well for several days in the hospital, but it was held here because it can be sedating. Same for valium. Both valium and mirtazapine will be held until after his appt at [place] [facility] tomorrow and until he f/ u with his PCP. Fortunately his mental status appeared to have returned to baseline shortly after admission. Pt's gastroparesis is long-standing from DM was managed with home regimen ( Compro, Reglan, Zofran) and was not overly changed during prior admission. Pt has an appointment with the motility clinic in [place] on 07/20. In addition to his gastroparesis, significant life stressors are likely playing a role in why his nausea and vomiting is been so much worse recently Pt's Type I diabetes mellitus was continued with insulin management. Pt's pneumonia likely aspirtation PNA given all of his vomiting. Pt was on Unasyn, and will be transitioned to Augmentin on d/c. Nursing noted a normal swallow eval at bedside. Pt's CKD stage 3 likely due to type 1 diabetes mellitus was managed with hydration, pre-renal contributions likely a player. From prior admission, appears Cr of ~3 is his new baseline. Nephrology (Dr. Montilla) noted kidney stone on previous ultrasound and recommended repeat renal U/S to rule out obstruction. Pt was noted to have anemia during stay, hgb ranging in 8 range. Likely anemia due to renal disease. Will need to f/u with PCP and check iron panel. No indication for transfusion during stay. Pt's Hypertension was stable during stay and pt was continued on home amlodipine 10 mg and added on Coreg 12.5 mg twice daily. Pt's Depression was stable during stay, denied SI. As stated prior, mirtazapine was held due to possible contribution of sedation. Home sertraline was continued. DVT prophylaxis with SCDs. At time of d/c, pt had no other acute concerns or complaints. Total Time Total Time Spent Total Time Spent (In Minutes): 30 min Discharge Plan Discharge Items Patient Disposition: Home - Self-Care Reason For Visit: LETHARGY Discharge Diagnosis: PNA Discharge Goals: Decrease discomfort and Improve disease control Activity: Per 'Additional Instructions' section Non-emergency contact: Primary Care Provider Call non-emergency contact if: you have any medication questions and your symptoms worsen Diet: Carb Count or DM1 Addtl Provider Instructions: You were admitted for Pneumonia and altered mental status, which was likely multifactorial. You were given Unasyn antibiotic to treat your pneumonia and will continue Augmentin on discharge for 1 week. Please also follow these instructions: -Please attend motility clinic at [place] on 07/20 -Do not take your Valium or Mirtazepine until seeing your PCP after discharge -Follow up with your PCP within one week from discharge. PCP will work up your anemia -Please follow-up with a rate analyst as well. Your PCP can help set this up. They want an ultrasound as an outpatient. Prescriptions: New amoxicillin-pot clavulanate [Augmentin] 875-125 mg tablet 1 tab PO BID Qty: 14 RF: 0 Continue ondansetron HCl [Zofran] 4 mg Tablet 4 mg PO QID PRN (Reason: Nausea) Qty: 0 RF: 0 prochlorperazine [Compazine] 25 mg Suppository 25 mg FL Q12H Qty: 0 RF: 0 insulin pump-infus. set-meter PUMP 1 dose Not Applicable UD Qty: 0 RF: 0 metoclopramide HCl [Reglan] 10 mg Tablet 10 mg PO QID PRN (Reason: Nausea) Qty: 6 RF: 0 amlodipine 10 mg tablet 10 mg PO QAM RF: 0 sertraline 50 mg Tablet 50 mg PO QAM 30 Days Qty: 30 RF: 0 Discontinued diazepam 5 mg tablet 5 mg PO BID RF: 0 mirtazapine 15 mg Tablet 7.5 mg PO HS 30 Days Qty: 30 RF: 0 Stand-Alone Forms: [facility] Discharge Orders: Discharge Order (Routine); Ordered 07/19/18 Ordered By: Joseph Angel Admission Data Admit Date/Time: 07/17/18 14:47 Attending Provider: Tessa Mckay Admit Provider: Sergo Rey Primary Care Provider: Andrew Li Other Providers: Sergo Rey ; Suman Montilla ; Obie Argueta ; Home, Nursing Agency Service: Medical Other Interventions: Discharge Summary Assessment (RN) Last Done: 07/19/18 11:05 DC Date/Time DO NOT enter until pt leaves facility: 07/19/18 12:15 Supervising Physician Co-Signing Physician Notes Resident Physician Supervision Note: I independently interviewed and examined the patient and verified the julien history and physical, reviewed labs and image studies, discussed the case with the resident Dr. Angel and agree with the findings and care plan. Time spent in discharge 35 min Resident Activity Tracking Resident Involvement: Resident Care Provided Care Provided: Adult Hospital Medicine
--- NOTE | 2018-07-19 10:18 | Pharmacy Report ---
Pharmacy Glycemic Short Note 2 - Date of Service July 19, 2018 - Glycemic Short BSG Results (Last 24 hours): 07/18/18 07/18/18 07/18/18 11:17 13:30 13:31 Glucose POC Glucose 73 64 L* 68 L* 07/18/18 07/18/18 07/18/18 13:55 14:25 16:40 Glucose POC Glucose 62 L* 87 124 H 07/18/18 07/19/18 07/19/18 20:07 00:40 04:34 Glucose POC Glucose 167 H 200 H 162 H 07/19/18 07/19/18 05:32 07:31 Glucose 175 H POC Glucose 189 H Assessment & Plan: ASSESSMENT: 07-19: * Patient received total of 28 units of insulin yesterday, of which 18 units were basal insulin * Patient did have lower BSG yesterday of 64 mg/dL - hypoglycemia protocol ordered. At that time D51/2 NS ordered and has been continued overnight. * Fasting BSG this am 175 mg/dL - will trial slightly lower Lantus dosing this am due to hypoglycemia yesterday. Previous data from other admissions suggest this dosing is appropriate. At this time, Lantus likely wearing off as last dose given at 0215 on 07/18 * Previous data shows patient tends to have increased BSG at lunchtime and tends to drop quickly at dinner and at bedtime - will add tightened CR for breakfast, and loosened CR for lunchtime and the rest of day -: * Mr. De Los Santos is a 47 yr old male admitted with AMS, possible pneumonia and acute on chronic kidney impairment. * He is known to the glycemic service from previous admissions. He was most recently here 07/09-07/14. He was taken off his pump and managed with SQ basal + bolus insulin and required ~20-37 units of insulin per day (basal dose ranged from 10-18 units). * His pump was also removed this admission. A dose of Lantus 18 units SQ was ordered for 07/18 AM (given @ 0215). He is ordered a diet but oral intake has been poor so far today. His BSGs have been trending downward throughout the day ; 100, 73, 64 mg/dL. Hospitalist service started D5 1/2 NS at 80 ml/hr. I will hold Lantus until evidence of BSG recovery. PLAN FOR INPATIENT GLYCEMIC CONTROL * Basal insulin - decrease * Lantus 15 units daily * Bolus insulin - tighten CR with breakfast, loosen CR all other times of day * NovoLog per scale ACHS or Q6hrs while NPO * Goal Range: Low 100 mg/dL - High 140 mg/dL * Correction Factor: 30 mg/dL/unit * Nutritional / Prandial insulin per carb ratio of 1 unit per 10 grams CHO consumed - 0730 check * Nutritional / Prandial insulin per carb ratio of 1 unit per 12 grams CHO consumed - 1130,1630,2100 check * Please note that the plan above was derived based on current level of insulin resistance and hospital stress. These recommendations are appropriate for inpatient admission only. Plan of care upon discharge will need to be reassessed to avoid potential outpatient hypo/hyperglycemia.
[2018-07-19] MEDS ORDERED: INSULIN ASPART 100 UNITS/ML 3 ML PEN SC SCH ×2 (11:30)
--- NOTE | 2018-07-19 14:07 | Nephrology Progress Note ---
Date of Service July 19, 2018 Assessment & Plan (1) KRYSTAL (acute kidney injury): Patient with acute kidney injury on CKD. Baseline creatinine of 2 now creatinine stable at 3.1. Patient with Cr in 1.5 range between November and Apr 2018 , cr in the 2's in Jun 2018 and now up to 3.1. 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 He has 8g proteinuria. His DM has been poorly controlled. he had a kidney stone on previous ultrasound but no hydronephrosis on repeat U/S. Will need renal follow up as an outpatient. (2) Hypertension: Blood pressure is above target today. Patient is on amlodipine 10 mg daily home dose. Continue Coreg 12.5 mg twice daily (3) Anemia: Patient with anemia due to renal disease. No indication for transfusion at the moment. He might need FLOR if iron replete but this can done as an outpatient Subjective Patient with CKD admitted with vomiting. He feels better this morning, denies any SOB or vomiting. No abdominal pain. he is eager to be discharged. has appointment at [facility] tomorrow. Review of Systems All systems reviewed & are unremarkable except as noted in HPI & below Physical Exam 2 Vital Signs (Past 24 Hours): Last Vital Signs Temp 36.5 C 07/19/18 11:05 Pulse 76 07/19/18 11:05 Resp 18 07/19/18 11:05 BP 160/90 H 07/19/18 11:05 Pulse Ox 96 07/19/18 11:05 Physical Exam: General exam: Appears comfortable, no acute distress HEENT: Pupils are equal and reactive to light Neck: No JVD, neck is supple trachea is midline Respiratory system: Clear breath sounds bilaterally. Gastrointestinal: Abdomen is soft, non distended, non tender, bowel sounds are present CVS: Regular rate and rhythm. No murmurs, rubs or gallops Musculoskeletal: No joint or muscle tenderness Extremities: Non tender, no edema, peripheral pulses are present Neuro: Oriented, no tremors, no focal neurological deficits Skin: No rashes Results & Data Laboratory Results cr 3.1, k 4.1 Urine protein 8g _ (1) Hypertension Hypertension type: essential hypertension Qualified Code(s): I10 - Essential (primary) hypertension
[2018-07-20] MEDS ORDERED: INSULIN ASPART 100 UNITS/ML 3 ML PEN SC SCH (07:30)
[2018-07-21 16:28] LABS: 7-Aminoclonaz, Confirm NEGATIVE NG/ML (CUTOFF=25); Hydro-Alp Ur, GC/MS NEGATIVE NG/ML (CUTOFF=25); Hydroxyethylflurazepam, Conf NEGATIVE NG/ML (CUTOFF=50); Hydroxytriazolam NEGATIVE NG/ML (CUTOFF=50); Lorazepam, Ur GC/MS NEGATIVE NG/ML (CUTOFF=50); Nordiazepam, Confirm 259 NG/ML (CUTOFF=50); Oxazepam Ur, GC/MS 1030 NG/ML (CUTOFF=50); Temazepam, Confirm 701 NG/ML (CUTOFF=50)
== END 2018-07-19 12:15 | disposition home or self-care (01) | DRG 179 ==
LOC: ED 11:30 → 4W 14:47 → SUATTDRO 14:47 → 4W 16:07

== ENCOUNTER 2018-08-06 09:49 | Inpatient (IN) ==
--- NOTE | 2018-08-06 10:12 | Emergency Department Note ---
Entered by Shannon Joaquin acting as a scribe for History of Present Illness General Chief complaint: Shortness of Breath/Dyspnea Stated complaint: SOB Time Seen by Provider: 08/06/18 10:03 Source: patient Mode of arrival: EMS Limitations: no limitations History of Present Illness Onset (ago): hour(s) (this morning) Location: chest Pain Consistency: + constant Quality: + other ("cant catch my breath") Exacerbated By: + other (lying down) Associated symptoms: + chest pain, + shortness of breath and + other (The patient complains of swelling in his legs.The patient denies melena and hematochezia.); no cough and no fever/chills (The patient denies fever.) The patient is a 47 year old male with a history of Type 1 diabetes, an appendectomy, renal stones, hypertension, and gastroparesis who presents to the ED with complaints of constant shortness of breath that onset this morning. The patient states that he felt fine last night but just cant catch his breath since he work up. He notes that the pain is exacerbated with lying down. He states that his blood sugar was [address] in via EMS. The patient complains of chest pain, difficult breathing, and swelling in his legs. The patient denies coughing, melena, hematochezia, and fevers. He notes that he is on Lasix. Home Medications Home Medications Medication Instructions Recorded Confirmed Type ondansetron HCl [Zofran] 4 mg PO QID PRN #0 tab 10/05/15 08/06/18 History prochlorperazine [Compazine] 25 mg OH Q12H #0 supp 10/05/15 08/06/18 History insulin pump-infus. set-meter 1 dose NOT APPLICABLE UD #0 dose 05/20/16 08/06/18 History metoclopramide HCl [Reglan] 10 mg PO QID PRN #6 tab 11/26/17 08/06/18 History amlodipine 10 mg PO QAM 07/09/18 08/06/18 History sertraline 50 mg PO QAM 30 Days #30 tab 07/14/18 08/06/18 Rx Allergies Allergy/AdvReac Type Severity Reaction Status Date / Time shellfish derived Allergy Severe anaphylaxis Verified 08/06/18 10:26 promethazine Allergy Intermediate itchy/hives Verified 08/06/18 10:26 Past Med/Surg History Medical History Diabetic nephropathy CKD stage 3 due to type 1 diabetes mellitus Anxiety HTN (hypertension) Gastroparesis (Chronic) Mr. De Los Santos is a 47 yr old male with diabetic gastroparesis. Plan: EGD today if endoscopy can accomodate, if not, this will need to be done tomorrow. Will continue IV fluids, antiemetics and will change Reglan from prn to Q6hrs. May also try e-mycin 250mg Q6hrs if able to obtain as on short supply. Diabetes (Chronic) Acid reflux CKD (chronic kidney disease) Depression Gastroparesis due to DM Hypertension Type I diabetes mellitus Surgical History H/O shoulder surgery History of appendectomy History of hip surgery Family History Grandfather Heart attack Social History Preferred Language: Romanian Communication Ability: Effective Bracelet Former Required: No Beliefs That Will Affect Care: None marital status: Legally Current Living Situation: Parent current occupational status: employed Other Information That Helps Us Care for You: No Feels Safe at Home: Yes Safety Concerns: Feels Safe At This Time Smoking Status: Never smoker Hx Alcohol Use: No Hx Substance Use: No Review of Systems See HPI for pertinent positives & negatives. and A total of 10 systems reviewed and were otherwise negative Physical Exam Vital Signs Vital Signs - 24 hr 08/06/18 09:57 08/06/18 10:02 08/06/18 10:13 Temperature 36.6 C Temperature Source Oral Sepsis Recent Fever Within 48 Hours No Sepsis New/Unexplained Change in Mental Status No Sepsis Action Taken by Nursing No Action Required Pulse Rate 86 Pulse Rate [Right Finger] Pulse Rate from SpO2 Sensor Respiratory Rate 22 Respiratory Effort / Characteristics Respiratory Depth Respiratory Pattern Blood Pressure 180/95 H Blood Pressure [Right Arm] Blood Pressure Mean 123 Blood Pressure Mean [Right Arm] Blood Pressure Position [Right Arm] Pulse Oximetry 88 L 88 L 93 Oxygen Delivery Method Room Air Nasal Cannula Nasal Cannula Nasal Cannula Oxygen Flow Rate 0 2 4 08/06/18 10:14 08/06/18 10:51 08/06/18 11:00 Temperature Temperature Source Sepsis Recent Fever Within 48 Hours Sepsis New/Unexplained Change in Mental Status Sepsis Action Taken by Nursing Pulse Rate 85 79 82 Pulse Rate [Right Finger] Pulse Rate from SpO2 Sensor 85 79 Respiratory Rate 17 18 19 Respiratory Effort / Characteristics Respiratory Depth Respiratory Pattern Blood Pressure 146/89 H 152/85 H 168/92 H Blood Pressure [Right Arm] Blood Pressure Mean 108 107 117 Blood Pressure Mean [Right Arm] Blood Pressure Position [Right Arm] Pulse Oximetry 94 91 Oxygen Delivery Method Oxygen Flow Rate 08/06/18 11:30 08/06/18 12:00 08/06/18 12:10 Temperature Temperature Source Sepsis Recent Fever Within 48 Hours Sepsis New/Unexplained Change in Mental Status Sepsis Action Taken by Nursing Pulse Rate 83 82 Pulse Rate [Right Finger] Pulse Rate from SpO2 Sensor 83 82 Respiratory Rate 15 14 Respiratory Effort / Characteristics Non-Labored Spontaneous Respiratory Depth Normal Respiratory Pattern Blood Pressure 158/87 H 146/86 H Blood Pressure [Right Arm] Blood Pressure Mean 110 106 Blood Pressure Mean [Right Arm] Blood Pressure Position [Right Arm] Pulse Oximetry 95 96 Oxygen Delivery Method Nasal Cannula Oxygen Flow Rate 4 08/06/18 12:30 08/06/18 14:17 08/06/18 15:20 Temperature 36.5 C Temperature Source Oral Sepsis Recent Fever Within 48 Hours Sepsis New/Unexplained Change in Mental Status Sepsis Action Taken by Nursing Pulse Rate 83 83 Pulse Rate [Right Finger] 90 Pulse Rate from SpO2 Sensor 83 Respiratory Rate 14 19 Respiratory Effort / Characteristics Non-Labored SOB on Exertion Respiratory Depth Normal Respiratory Pattern Regular Blood Pressure 149/90 H Blood Pressure [Right Arm] 152/78 H Blood Pressure Mean 109 Blood Pressure Mean [Right Arm] 102 Blood Pressure Position [Right Arm] Lying Pulse Oximetry 97 90 Oxygen Delivery Method Nasal Cannula Nasal Cannula Oxygen Flow Rate 2 2 08/06/18 16:30 Temperature Temperature Source Sepsis Recent Fever Within 48 Hours Sepsis New/Unexplained Change in Mental Status Sepsis Action Taken by Nursing Pulse Rate 85 Pulse Rate [Right Finger] Pulse Rate from SpO2 Sensor Respiratory Rate Respiratory Effort / Characteristics Respiratory Depth Respiratory Pattern Blood Pressure Blood Pressure [Right Arm] Blood Pressure Mean Blood Pressure Mean [Right Arm] Blood Pressure Position [Right Arm] Pulse Oximetry Oxygen Delivery Method Oxygen Flow Rate GENERAL: Patient is listless and slow to respond to questioning. He does not appear to be in pain. EYES: The conjunctivae are clear. The pupils are round and reactive. EARS, NOSE, MOUTH AND THROAT: The nose is without any evidence of any deformity. Mucous membranes are moist tongue is midline NECK: The neck is nontender and supple. RESPIRATORY: Shallow respirations were noted throughout. There are rales at both bases. CARDIOVASCULAR: Regular rate and rhythm was noted to auscultation. There was a systolic murmur suggested. GASTROINTESTINAL: The abdomen is soft. Bowel sounds are present in all quadrants. Abdomen is nontender. RECTAL: light brown stool, heme negative. MUSCULOSKELETAL/EXTREMITIES: There is no evidence of gross deformity full range of motion is noted in the hips and shoulders SKIN: There is no obvious evidence of any rash. Pedal edema was noted bilat erally. NEUROLOGIC: Patient is oriented to person place and situation. Strength was symmetric. Course 1006: Past medical records reviewed. The patient was evaluated in room B02, and a complete history and physical examination were performed. 1044: I updated the patient. Upon reevaluation, the patient is resting comfortably. 1112: I reviewed the patient's case with Valerie Downs PA-C. She will evaluate the patient for further management. Consultations Consultation #1: 1112: I reviewed the patient's case with Valerie Downs PA-C. She will evaluate the patient for further management. Time: 11:12 Administered Medications Insulin Aspart (Novolog Flexpen) 0 units SC [facility]; Protocol Stop: 09/05/18 16:29 Last Admin: 08/06/18 17:04 Dose: 6 units Documented by: [id number] Cosigned by: [id number] Miscellaneous (Carbohydrates For Hypoglycemia) 15 - 30 gm PO UD PRN PRN Reason: Hypoglycemia Treatment Stop: 09/05/18 12:13 Last Admin: 08/06/18 13:48 Dose: 15 gm Documented by: [id number] Discontinued Medications Bumetanide (Bumex) Confirm Administered Dose 2 mg IV .STK-MED ONE Stop: 08/06/18 13:03 Last Admin: 08/06/18 13:06 Dose: 2 mg Documented by: [id number] Dextrose (Dextrose 50%) Confirm Administered Dose 50 ml IV .STK-MED ONE Stop: 08/06/18 10:44 Last Admin: 08/06/18 10:48 Dose: 50 ml Documented by: [id number] Dextrose (Dextrose 50%) 50 ml IV NOW Stop: 08/06/18 10:47 Last Admin: 08/06/18 10:48 Dose: Not Given Documented by: [id number] Bumetanide 2 mg/ Syringe 8 mls @ 4 mls/min IV ONE STA Stop: 08/06/18 12:27 Last Admin: 08/06/18 13:12 Dose: Not Given Documented by: [id number] Insulin Glargine (Lantus Solostar Pen) 10 units SC NOW STA; Protocol Stop: 08/06/18 14:40 Last Admin: 08/06/18 15:04 Dose: 10 units Documented by: [id number] Cosigned by: [id number] Medical Decision Making Differential Diagnosis Differential diagnosis: Etiologies such as infections, reactive airway disease, COPD, pneumonia, pleural effusion, pulmonary edema, ARDS, pneumothorax, CHF, cardiac ischemia, cardiac tamponade, dysrhythmia, anemia, pulmonary embolism, musculoskeletal, gastrointestinal process, as well as others were entertained. Medical Records Attestation: I reviewed the patient's medical records. Home Medications Current Medication List: was personally reviewed by me Laboratory Data Attestation: I reviewed the patient's lab results. Result diagrams: 08/06/18 10:00 08/06/18 15:54 Lab Results 08/06/18 08/06/18 08/06/18 Range/Units 09:53 10:00 10:00 WBC 11.03 H (4.8-10.8) K/uL RBC 2.90 L (4.7-6.1) M/uL Hgb 8.7 L (14.0-18.0) g/dL POC Hgb (14.0-18.0) g/dl Hct 27.1 L (42-52) % POC Hct (42-52) % MCV 93.4 (80-100) fL MCH 30.0 (25-34) pg MCHC 32.1 (32-36) g/dL RDW Std Deviation 44.7 (36.4-46.3) fL RDW Coeff of Kami 13.1 (11.5-14.5) % Plt Count 555 H (130-400) K/uL MPV 8.2 (7.4-10.4) fL Immature Gran % (Auto) 0.9 % Neut % (Auto) 72.9 % Lymph % (Auto) 11.9 % Lanier % (Auto) 9.8 % Eos % (Auto) 4.0 % Baso % (Auto) 0.5 % Immature Gran # (Auto) 0.10 H (0.00-0.02) K/uL Neut # (Auto) 8.05 H (1.4-6.5) K/uL Lymph # (Auto) 1.31 (1.2-3.4) K/uL Lanier # (Auto) 1.08 H (0.11-0.59) K/uL Eos # (Auto) 0.44 (0-0.5) K/uL Baso # (Auto) 0.05 (0-0.2) K/uL RBC Morphology Unremarkable PT 9.8 (9.0-12.0) Seconds INR 1.0 (0.9-1.1) APTT 25.5 (21.0-31.0) Seconds PTT Ratio 0.9 VBG pH (7.36-7.41) VBG pCO2 (38-50) mmHg VBG pO2 mmHg VBG HCO3 mmol/L VBG O2 Saturation % VBG Base Excess mEq/L Carboxyhemoglobin % THgb Barometric Pressure mm/Hg POC Sodium (135-144) mEq/L Sodium (136-145) mmol/L POC Potassium (3.3-5.0) mEq/L Potassium (3.5-5.1) mmol/L POC Chloride (101-112) mEq/L Chloride (98-107) mmol/L Carbon Dioxide (21-32) mmol/L POC Total CO2 (24-31) mEq/l Anion Gap (3-11) POC Anion Gap (16-25) mmol/L POC BUN (7-18) mg/dl BUN (7-18) mg/dl Creatinine (0.6-1.4) mg/dl POC Creatinine (0.6-1.3) mg/dl Est Cr Clr Drug Dosing ml/min Est GFR ( Amer) Est GFR (Non-Af Amer) BUN/Creatinine Ratio (10-20) Glucose (70-99) mg/dl POC Glucose 82 (70-99) POC Glucose (other) (70-99) mg/dl Calcium (8.5-10.1) mg/dl POC Ioniz Calcium Peterson (1.12-1.32) mmol/l Magnesium (1.8-2.4) mg/dl Total Bilirubin (0.2-1) mg/dl AST (15-37) U/L ALT (12-78) U/L Alkaline Phosphatase (45-117) U/L Ammonia (11-32) umol/L Troponin I (0-0.045) ng/ml Total Protein (6.4-8.2) gm/dl Albumin (3.4-5.0) gm/dl Globulin (2.5-4.0) gm/dl Albumin/Globulin Ratio (0.9-2) TSH (0.300-4.500) uIu/ml Ethyl Alcohol mg/dL (0-3) mg/dl Influenza Type A (PCR) (Neg) Influenza Type B (PCR) (Neg) Blood Type Antibody Screen 08/06/18 08/06/18 08/06/18 Range/Units 10:00 10:18 10:18 WBC (4.8-10.8) K/uL RBC (4.7-6.1) M/uL Hgb (14.0-18.0) g/dL POC Hgb (14.0-18.0) g/dl Hct (42-52) % POC Hct (42-52) % MCV (80-100) fL MCH (25-34) pg MCHC (32-36) g/dL RDW Std Deviation (36.4-46.3) fL RDW Coeff of Kami (11.5-14.5) % Plt Count (130-400) K/uL MPV (7.4-10.4) fL Immature Gran % (Auto) % Neut % (Auto) % Lymph % (Auto) % Lanier % (Auto) % Eos % (Auto) % Baso % (Auto) % Immature Gran # (Auto) (0.00-0.02) K/uL Neut # (Auto) (1.4-6.5) K/uL Lymph # (Auto) (1.2-3.4) K/uL Lanier # (Auto) (0.11-0.59) K/uL Eos # (Auto) (0-0.5) K/uL Baso # (Auto) (0-0.2) K/uL RBC Morphology PT (9.0-12.0) Seconds INR (0.9-1.1) APTT (21.0-31.0) Seconds PTT Ratio VBG pH (7.36-7.41) VBG pCO2 (38-50) mmHg VBG pO2 mmHg VBG HCO3 mmol/L VBG O2 Saturation % VBG Base Excess mEq/L Carboxyhemoglobin % THgb Barometric Pressure mm/Hg POC Sodium (135-144) mEq/L Sodium 133 L (136-145) mmol/L POC Potassium (3.3-5.0) mEq/L Potassium 4.5 (3.5-5.1) mmol/L POC Chloride (101-112) mEq/L Chloride 99 (98-107) mmol/L Carbon Dioxide 24 (21-32) mmol/L POC Total CO2 (24-31) mEq/l Anion Gap 10.0 (3-11) POC Anion Gap (16-25) mmol/L POC BUN (7-18) mg/dl BUN 98 H (7-18) mg/dl Creatinine 4.56 H* (0.6-1.4) mg/dl POC Creatinine (0.6-1.3) mg/dl Est Cr Clr Drug Dosing 19.4 ml/min Est GFR ( Amer) 16.5 Est GFR (Non-Af Amer) 14.3 BUN/Creatinine Ratio 21.6 H (10-20) Glucose 59 L (70-99) mg/dl POC Glucose (70-99) POC Glucose (other) (70-99) mg/dl Calcium 7.7 L (8.5-10.1) mg/dl POC Ioniz Calcium Peterson (1.12-1.32) mmol/l Magnesium 2.8 H (1.8-2.4) mg/dl Total Bilirubin 0.1 L (0.2-1) mg/dl AST 24 (15-37) U/L ALT 46 (12-78) U/L Alkaline Phosphatase 138 H (45-117) U/L Ammonia 16.0 (11-32) umol/L Troponin I < 0.015 (0-0.045) ng/ml Total Protein 6.4 (6.4-8.2) gm/dl Albumin 2.1 L (3.4-5.0) gm/dl Globulin 4.3 H (2.5-4.0) gm/dl Albumin/Globulin Ratio 0.5 L (0.9-2) TSH (0.300-4.500) uIu/ml Ethyl Alcohol mg/dL < 3.0 (0-3) mg/dl Influenza Type A (PCR) (Neg) Influenza Type B (PCR) (Neg) Blood Type Antibody Screen 08/06/18 08/06/18 08/06/18 Range/Units 10:18 10:18 10:35 WBC (4.8-10.8) K/uL RBC (4.7-6.1) M/uL Hgb (14.0-18.0) g/dL POC Hgb 7.8 L (14.0-18.0) g/dl Hct (42-52) % POC Hct 23 L (42-52) % MCV (80-100) fL MCH (25-34) pg MCHC (32-36) g/dL RDW Std Deviation (36.4-46.3) fL RDW Coeff of Kami (11.5-14.5) % Plt Count (130-400) K/uL MPV (7.4-10.4) fL Immature Gran % (Auto) % Neut % (Auto) % Lymph % (Auto) % Lanier % (Auto) % Eos % (Auto) % Baso % (Auto) % Immature Gran # (Auto) (0.00-0.02) K/uL Neut # (Auto) (1.4-6.5) K/uL Lymph # (Auto) (1.2-3.4) K/uL Lanier # (Auto) (0.11-0.59) K/uL Eos # (Auto) (0-0.5) K/uL Baso # (Auto) (0-0.2) K/uL RBC Morphology PT (9.0-12.0) Seconds INR (0.9-1.1) APTT (21.0-31.0) Seconds PTT Ratio VBG pH 7.42 H (7.36-7.41) VBG pCO2 38 (38-50) mmHg VBG pO2 52 mmHg VBG HCO3 24 mmol/L VBG O2 Saturation 84.3 % VBG Base Excess -0.2 mEq/L Carboxyhemoglobin 0.0 % THgb Barometric Pressure 737.0 mm/Hg POC Sodium 133 L (135-144) mEq/L Sodium (136-145) mmol/L POC Potassium 4.6 (3.3-5.0) mEq/L Potassium (3.5-5.1) mmol/L POC Chloride 99 L (101-112) mEq/L Chloride (98-107) mmol/L Carbon Dioxide (21-32) mmol/L POC Total CO2 26 (24-31) mEq/l Anion Gap (3-11) POC Anion Gap 14.0 L (16-25) mmol/L POC BUN 95 H (7-18) mg/dl BUN (7-18) mg/dl Creatinine (0.6-1.4) mg/dl POC Creatinine 4.7 H* (0.6-1.3) mg/dl Est Cr Clr Drug Dosing ml/min Est GFR ( Amer) Est GFR (Non-Af Amer) BUN/Creatinine Ratio (10-20) Glucose (70-99) mg/dl POC Glucose (70-99) POC Glucose (other) 50 L* (70-99) mg/dl Calcium (8.5-10.1) mg/dl POC Ioniz Calcium Peterson 0.99 L (1.12-1.32) mmol/l Magnesium (1.8-2.4) mg/dl Total Bilirubin (0.2-1) mg/dl AST (15-37) U/L ALT (12-78) U/L Alkaline Phosphatase (45-117) U/L Ammonia (11-32) umol/L Troponin I (0-0.045) ng/ml Total Protein (6.4-8.2) gm/dl Albumin (3.4-5.0) gm/dl Globulin (2.5-4.0) gm/dl Albumin/Globulin Ratio (0.9-2) TSH (0.300-4.500) uIu/ml Ethyl Alcohol mg/dL (0-3) mg/dl Influenza Type A (PCR) (Neg) Influenza Type B (PCR) (Neg) Blood Type Antibody Screen 08/06/18 08/06/18 08/06/18 Range/Units 11:09 11:27 13:45 WBC (4.8-10.8) K/uL RBC (4.7-6.1) M/uL Hgb (14.0-18.0) g/dL POC Hgb (14.0-18.0) g/dl Hct (42-52) % POC Hct (42-52) % MCV (80-100) fL MCH (25-34) pg MCHC (32-36) g/dL RDW Std Deviation (36.4-46.3) fL RDW Coeff of Kami (11.5-14.5) % Plt Count (130-400) K/uL MPV (7.4-10.4) fL Immature Gran % (Auto) % Neut % (Auto) % Lymph % (Auto) % Lanier % (Auto) % Eos % (Auto) % Baso % (Auto) % Immature Gran # (Auto) (0.00-0.02) K/uL Neut # (Auto) (1.4-6.5) K/uL Lymph # (Auto) (1.2-3.4) K/uL Lanier # (Auto) (0.11-0.59) K/uL Eos # (Auto) (0-0.5) K/uL Baso # (Auto) (0-0.2) K/uL RBC Morphology PT (9.0-12.0) Seconds INR (0.9-1.1) APTT (21.0-31.0) Seconds PTT Ratio VBG pH (7.36-7.41) VBG pCO2 (38-50) mmHg VBG pO2 mmHg VBG HCO3 mmol/L VBG O2 Saturation % VBG Base Excess mEq/L Carboxyhemoglobin % THgb Barometric Pressure mm/Hg POC Sodium (135-144) mEq/L Sodium (136-145) mmol/L POC Potassium (3.3-5.0) mEq/L Potassium (3.5-5.1) mmol/L POC Chloride (101-112) mEq/L Chloride (98-107) mmol/L Carbon Dioxide (21-32) mmol/L POC Total CO2 (24-31) mEq/l Anion Gap (3-11) POC Anion Gap (16-25) mmol/L POC BUN (7-18) mg/dl BUN (7-18) mg/dl Creatinine (0.6-1.4) mg/dl POC Creatinine (0.6-1.3) mg/dl Est Cr Clr Drug Dosing ml/min Est GFR ( Amer) Est GFR (Non-Af Amer) BUN/Creatinine Ratio (10-20) Glucose (70-99) mg/dl POC Glucose 98 69 L* (70-99) POC Glucose (other) (70-99) mg/dl Calcium (8.5-10.1) mg/dl POC Ioniz Calcium Peterson (1.12-1.32) mmol/l Magnesium (1.8-2.4) mg/dl Total Bilirubin (0.2-1) mg/dl AST (15-37) U/L ALT (12-78) U/L Alkaline Phosphatase (45-117) U/L Ammonia (11-32) umol/L Troponin I (0-0.045) ng/ml Total Protein (6.4-8.2) gm/dl Albumin (3.4-5.0) gm/dl Globulin (2.5-4.0) gm/dl Albumin/Globulin Ratio (0.9-2) TSH (0.300-4.500) uIu/ml Ethyl Alcohol mg/dL (0-3) mg/dl Influenza Type A (PCR) (Neg) Influenza Type B (PCR) (Neg) Blood Type B Negative Antibody Screen NEGATIVE 08/06/18 08/06/18 08/06/18 Range/Units 13:46 14:07 14:35 WBC (4.8-10.8) K/uL RBC (4.7-6.1) M/uL Hgb (14.0-18.0) g/dL POC Hgb (14.0-18.0) g/dl Hct (42-52) % POC Hct (42-52) % MCV (80-100) fL MCH (25-34) pg MCHC (32-36) g/dL RDW Std Deviation (36.4-46.3) fL RDW Coeff of Kami (11.5-14.5) % Plt Count (130-400) K/uL MPV (7.4-10.4) fL Immature Gran % (Auto) % Neut % (Auto) % Lymph % (Auto) % Lanier % (Auto) % Eos % (Auto) % Baso % (Auto) % Immature Gran # (Auto) (0.00-0.02) K/uL Neut # (Auto) (1.4-6.5) K/uL Lymph # (Auto) (1.2-3.4) K/uL Lanier # (Auto) (0.11-0.59) K/uL Eos # (Auto) (0-0.5) K/uL Baso # (Auto) (0-0.2) K/uL RBC Morphology PT (9.0-12.0) Seconds INR (0.9-1.1) APTT (21.0-31.0) Seconds PTT Ratio VBG pH (7.36-7.41) VBG pCO2 (38-50) mmHg VBG pO2 mmHg VBG HCO3 mmol/L VBG O2 Saturation % VBG Base Excess mEq/L Carboxyhemoglobin % THgb Barometric Pressure mm/Hg POC Sodium (135-144) mEq/L Sodium (136-145) mmol/L POC Potassium (3.3-5.0) mEq/L Potassium (3.5-5.1) mmol/L POC Chloride (101-112) mEq/L Chloride (98-107) mmol/L Carbon Dioxide (21-32) mmol/L POC Total CO2 (24-31) mEq/l Anion Gap (3-11) POC Anion Gap (16-25) mmol/L POC BUN (7-18) mg/dl BUN (7-18) mg/dl Creatinine (0.6-1.4) mg/dl POC Creatinine (0.6-1.3) mg/dl Est Cr Clr Drug Dosing ml/min Est GFR ( Amer) Est GFR (Non-Af Amer) BUN/Creatinine Ratio (10-20) Glucose (70-99) mg/dl POC Glucose 58 L* 85 (70-99) POC Glucose (other) (70-99) mg/dl Calcium (8.5-10.1) mg/dl POC Ioniz Calcium Peterson (1.12-1.32) mmol/l Magnesium (1.8-2.4) mg/dl Total Bilirubin (0.2-1) mg/dl AST (15-37) U/L ALT (12-78) U/L Alkaline Phosphatase (45-117) U/L Ammonia (11-32) umol/L Troponin I (0-0.045) ng/ml Total Protein (6.4-8.2) gm/dl Albumin (3.4-5.0) gm/dl Globulin (2.5-4.0) gm/dl Albumin/Globulin Ratio (0.9-2) TSH (0.300-4.500) uIu/ml Ethyl Alcohol mg/dL (0-3) mg/dl Influenza Type A (PCR) Neg for Influ A (Neg) Influenza Type B (PCR) Neg for Influ B (Neg) Blood Type Antibody Screen 08/06/18 08/06/18 Range/Units 15:54 16:28 WBC (4.8-10.8) K/uL RBC (4.7-6.1) M/uL Hgb (14.0-18.0) g/dL POC Hgb (14.0-18.0) g/dl Hct (42-52) % POC Hct (42-52) % MCV (80-100) fL MCH (25-34) pg MCHC (32-36) g/dL RDW Std Deviation (36.4-46.3) fL RDW Coeff of Kami (11.5-14.5) % Plt Count (130-400) K/uL MPV (7.4-10.4) fL Immature Gran % (Auto) % Neut % (Auto) % Lymph % (Auto) % Lanier % (Auto) % Eos % (Auto) % Baso % (Auto) % Immature Gran # (Auto) (0.00-0.02) K/uL Neut # (Auto) (1.4-6.5) K/uL Lymph # (Auto) (1.2-3.4) K/uL Lanier # (Auto) (0.11-0.59) K/uL Eos # (Auto) (0-0.5) K/uL Baso # (Auto) (0-0.2) K/uL RBC Morphology PT (9.0-12.0) Seconds INR (0.9-1.1) APTT (21.0-31.0) Seconds PTT Ratio VBG pH (7.36-7.41) VBG pCO2 (38-50) mmHg VBG pO2 mmHg VBG HCO3 mmol/L VBG O2 Saturation % VBG Base Excess mEq/L Carboxyhemoglobin % THgb Barometric Pressure mm/Hg POC Sodium (135-144) mEq/L Sodium 133 L (136-145) mmol/L POC Potassium (3.3-5.0) mEq/L Potassium 4.8 (3.5-5.1) mmol/L POC Chloride (101-112) mEq/L Chloride 99 (98-107) mmol/L Carbon Dioxide 25 (21-32) mmol/L POC Total CO2 (24-31) mEq/l Anion Gap 9.0 (3-11) POC Anion Gap (16-25) mmol/L POC BUN (7-18) mg/dl BUN 103 H (7-18) mg/dl Creatinine 4.70 H* (0.6-1.4) mg/dl POC Creatinine (0.6-1.3) mg/dl Est Cr Clr Drug Dosing 18.8 ml/min Est GFR ( Amer) 15.9 Est GFR (Non-Af Amer) 13.7 BUN/Creatinine Ratio 21.9 H (10-20) Glucose 181 H (70-99) mg/dl POC Glucose 219 H (70-99) POC Glucose (other) (70-99) mg/dl Calcium 7.8 L (8.5-10.1) mg/dl POC Ioniz Calcium Peterson (1.12-1.32) mmol/l Magnesium (1.8-2.4) mg/dl Total Bilirubin (0.2-1) mg/dl AST (15-37) U/L ALT (12-78) U/L Alkaline Phosphatase (45-117) U/L Ammonia (11-32) umol/L Troponin I < 0.015 (0-0.045) ng/ml Total Protein (6.4-8.2) gm/dl Albumin (3.4-5.0) gm/dl Globulin (2.5-4.0) gm/dl Albumin/Globulin Ratio (0.9-2) TSH 3.960 (0.300-4.500) uIu/ml Ethyl Alcohol mg/dL (0-3) mg/dl Influenza Type A (PCR) (Neg) Influenza Type B (PCR) (Neg) Blood Type Antibody Screen Imaging Data Radiologist's Impression: Radiology results as stated below per my review and the radiologist's interpretation: XR chest 1V portable CLINICAL HISTORY: 47 years-old Male presenting with Dyspnea. TECHNIQUE: Portable upright AP view of the chest was obtained. COMPARISON: 07/17/2018. FINDINGS: Cardiac silhouette moderately enlarged. Pulmonary vascular prominence. Central bibasilar hazy opacities. Prominent lung markings. Small bilateral pleural effusions, left greater than right. No pneumothorax. Osseous structures normal. Upper abdomen normal. IMPRESSION: 1. Cardiomegaly with significant congestive change and pulmonary edema. 2. Small bilateral pleural effusions, left greater than right. Electronically signed by: Jose Zaldivar M.D. 08/06/2018 10:36 AM Dictated: 08/06/18 1035 Transcribed: 08/06/18 1035 ECG Data Attestation: I personally reviewed and interpreted this ECG as follows: Indication: SOB/dyspnea Rate (beats per minute): 87 Rhythm: normal sinus Findings: + other (No acute ST segments); no ectopy Blood Pressure Blood Pressure Findings: Elevated blood pressure Blood Pressure Disposition: further management by hospitalist [facility] Narrative The patient is a 47-year-old male who has a history of diabetes who presented to the emergency department with his father for an evaluation of shortness of breath. The patient has been describing shortness of breath as well as orthopnea. He was found to have some degree of hypoxia but responded well to supplemental oxygen. His exam appear to be consistent with pulmonary edema. He was found to have renal insufficiency on his laboratory workup. I discussed the patient's laboratory and radiographic studies with him and his father. I also discussed his case with the on-call [facility] hospitalist group. They have agreed to evaluate the patient in the emergency department for further management and disposition. The patient was found to have low blood sugar. This was treated with dextrose infusion. Impression & Plan Pulmonary edema, Altered mental state, Anemia, Hypoxia, Hypoglycemia, Renal failure Discharge Plan Visit Data *Final* Discharge Date/Time: 08/06/18 13:08 Chief Complaint: Shortness of Breath/Dyspnea Stated Complaint: SOB ED Provider: Jorge Alberto Mae Discharge Problem: Pulmonary edema, Altered mental state, Anemia, Hypoxia, Hypoglycemia, Renal failure Patient Disposition: Admitted As Inpatient Discharge Instructions Interventions: ED Discharge Assessment Last Done: 08/06/18 13:08 Discharge Problem: Pulmonary edema Qualifiers: Chronicity: acute Qualified Code(s): J81.0 - Acute pulmonary edema Altered mental state Qualifiers: Altered mental status type: unspecified Qualified Code(s): R41.82 - Altered mental status, unspecified Anemia Qualifiers: Anemia type: unspecified type Qualified Code(s): D64.9 - Anemia, unspecified Renal failure Qualifiers: Renal failure chronicity: unspecified chronicity Qualified Code(s): N19 - Unspecified kidney failure The eliazaribe's documentation has been prepared under my direction and personally reviewed by me in its entirety. I confirm that the note above accurately reflects all work, treatment, procedures, and medical decision making performed by me.
[2018-08-06 10:23] LABS: Basophils # (auto) 0.05 K/uL (0-0.2); Basophils % (auto) 0.5 %; Eosinophils # (auto) 0.44 K/uL (0-0.5); Hematocrit (blood only) 27.1 % (42-52); Hemoglobin 8.7 g/dL (14.0-18.0); Immature Granulocytes % (auto) 0.9 %; Lymphocytes # (auto) 1.31 K/uL (1.2-3.4); Lymphocytes % (auto) 11.9 %; Mean Corpuscular Hgb Conc 32.1 g/dL (32-36); Mean Corpuscular Volume 93.4 fL (80-100); Mean Platelet Volume 8.2 fL (7.4-10.4); Monocytes # (auto) 1.08 K/uL (0.11-0.59); Monocytes % (auto) 9.8 %; Neutrophils # (auto) 8.05 K/uL (1.4-6.5); Neutrophils % (auto) 72.9 %; Platelet Count 555 K/uL (130-400); RDW Coefficient of Variation 13.1 % (11.5-14.5); RDW Standard Deviation 44.7 fL (36.4-46.3); White Blood Count 11.03 K/uL (4.8-10.8)
--- NOTE | 2018-08-06 10:38 | XRay Report ---
XR chest 1V portable CLINICAL HISTORY: 47 years-old Male presenting with Dyspnea. TECHNIQUE: Portable upright AP view of the chest was obtained. COMPARISON: 07/17/2018. FINDINGS: Cardiac silhouette moderately enlarged. Pulmonary vascular prominence. Central bibasilar hazy opaciti es. Prominent lung markings. Small bilateral pleural effusions, left greater than right. No pneumotho rax. Osseous structures normal. Upper abdomen normal. IMPRESSION: 1. Cardiomegaly with significant congestive change and pulmonary edema. 2. Small bilateral pleural effusions, left greater than right. Electronically signed by: Jose Zaldivar M.D. 08/06/2018 10:36 AM
[2018-08-06 10:39] LABS: Partial Thromboplastin Ratio 0.9; Partial Thromboplastin Time 25.5 Seconds (21.0-31.0); Prothrombin Time 9.8 Seconds (9.0-12.0)
[2018-08-06 10:40] LABS: Base Excess VBG -0.2 mEq/L; Oxygen Saturation VBG 84.3 %; pH VBG 7.42 (7.36-7.41)
[2018-08-06] MEDS ORDERED: DEXTROSE 50% 50 ML SYRINGE IV ONE (10:43)
[2018-08-06 10:44] LABS: RBC Morphology Unremarkable
[2018-08-06] MEDS ORDERED: DEXTROSE 50% 50 ML SYRINGE IV STA (10:46)
[2018-08-06 10:49] LABS: iSTAT Creatinine 4.7 mg/dl (0.6-1.3); iSTAT Hemoglobin 7.8 g/dl (14.0-18.0); iSTAT Ionized Calcium 0.99 mmol/l (1.12-1.32); iSTAT Potassium 4.6 mEq/L (3.3-5.0)
[2018-08-06 10:51] LABS: Alanine Aminotransferase 46 U/L (12-78); Albumin Globulin Ratio 0.5 (0.9-2); Albumin Level 2.1 gm/dl (3.4-5.0); Alkaline Phosphatase 138 U/L (45-117); Aspartate Aminotransferase 24 U/L (15-37); BUN Creatinine Ratio 21.6 (10-20); Bilirubin,Total 0.1 mg/dl (0.2-1); Blood Urea Nitrogen 98 mg/dl (7-18); Calcium 7.7 mg/dl (8.5-10.1); Carbon Dioxide 24 mmol/L (21-32); Chloride 99 mmol/L (98-107); Creatinine Clr Calc Pharmacy 19.4 ml/min; Est GFR (African American) 16.5; Est GFR (Non-African American) 14.3; Globulin 4.3 gm/dl (2.5-4.0); Glucose 59 mg/dl (70-99); Magnesium 2.8 mg/dl (1.8-2.4); Potassium 4.5 mmol/L (3.5-5.1); Sodium 133 mmol/L (136-145); Total Protein 6.4 gm/dl (6.4-8.2); Troponin I < 0.015 ng/ml (0-0.045)
[2018-08-06] MEDS ORDERED: POLYETHYLENE (MIRALAX) 17 GM PACK PO PRN (12:09)
[2018-08-06] MEDS ORDERED: MAGNESIUM HYDROXIDE SUSP 30 ML UDC PO PRN (12:09)
[2018-08-06] MEDS ORDERED: ALUMINUM/MAGNESIUM SUSP 30 ML UDC PO PRN (12:09)
[2018-08-06] MEDS ORDERED: ACETAMINOPHEN 325 MG TAB PO PRN (12:09)
[2018-08-06] MEDS ORDERED: GLUCOSE 10 TABS/TUBE PO PRN (12:14)
[2018-08-06] MEDS ORDERED: GLUCOSE 40% GEL 15 GM TUBE PO PRN (12:14)
[2018-08-06] MEDS ORDERED: CARBOHYDRATES FOR HYPOGLYCEMIA PO PRN (12:14)
[2018-08-06] MEDS ORDERED: GLUCAGON FOR INJ 1 MG VIAL SQ PRN (12:14)
[2018-08-06] MEDS ORDERED: DEXTROSE 50% 50 ML SYRINGE IV PRN (12:14)
[2018-08-06] MEDS ORDERED: BUMETANIDE 2 MG in SYRINGE 0 ML IV STA (12:26)
--- NOTE | 2018-08-06 12:32 | History & Physical Report ---
Date of Service August 06, 2018 Assessment & Plan (1) Acute encephalopathy: - Suspect this is toxic encephalopathy in the setting of poor renal clearance of Valium/Mirtazapine/Sertraline/anti-emetics? vs infectious (no clear source) vs hypoglycemia vs severe depression - No clear source of infection - urine unremarkable, CXR with volume overload, no obvious skin issues, denies acute GI issues but will monitor - Was advised to hold Valium and Mirtazapine on previous admission until assessed by PCP and was resumed and patient and father reports he is still taking this even though not on med rec - on a previous admission his Sertraline was reduced to 50 mg daily from 100 mg daily - Hold Valium and Mirtazapine for now; will continue Sertraline 50 mg daily - Hold insulin pump and place on a sliding scale and monitor - Check TSH with reflex T4 - Consider repeat CXR in AM to assess for any PNA findings - had recent admission for suggested aspiration and treated with Unasyn and converted to Augmentin which he finished on Thursday - Recommend to hold food/medicines unless completely awake Present on Admission?: Yes (2) KRYSTAL (acute kidney injury): - This is superimposed on CKD III - appears new baseline is around 2-3 and follows with [facility] - Consult nephrology - electrolytes are stable and no emergent needs for dialysis consideration but appreciate recommendations pending response to Bumex - Avoid nephrotoxins and repeat BMP this afternoon Present on Admission?: Yes (3) Volume overload: - Will obtain an echocardiogram to assess cardiac function - Will repeat troponin in the setting of CP complaints - currently negative and EKG without ischemic findings - Bumex 2 mg IV x 1 dose and monitor renal function before further dosing - given underlying renal function may need increased dosage to obtain adequate diuresis - patient reports minimal change in lower extremity edema - Maybe some underlying diastolic dysfunction? Maybe induced by his psychiatric medications? As well slower renal clearance - Was recently started on Lasix 20 mg BID last week - Also on Norvasc 10 mg daily - maybe contributing to lower extremity edema? Present on Admission?: Yes (4) Type 1 diabetes: - Hold insulin pump - will monitor BSGs given lethargy and place a liberal sliding scale - Will consult glycemic management to assist - would recommend resumption of pump when more awake/alert prior to discharge Present on Admission?: Yes (5) Diabetic gastroparesis: - Abdomen is distended but denies current complaints - Zofran PRN, Reglan 10 mg QID PRN, Compazine rectally BID PRN (some of these medications could be contributing to lethargy) Present on Admission?: Yes (6) Essential hypertension: - Norvasc 10 mg daily Present on Admission?: Yes (7) Depression: - Suspect this is playing a large role in lethargy as patient is oriented when awake and will answer questions on his terms with appropriate answers - Father states this has been progressive, largely sleeping majority of the day and becoming rather dependent on others - Between medical conditions and social stressors this is likely contributing - Consult psychiatry - appreciate any further recommendations or adjustments - patient was to F/U with [facility] today however now is hospitalized Present on Admission?: Yes (8) Anemia: - Chronic - baseline around 8-11 - likely of chronic disease - Will monitor - appreciate nephrology input for any medicinal approaches Present on Admission?: Yes (9) DVT prophylaxis: Heparin History of Present Illness Chief Complaint: SOB Primary Care Provider: Andrew Li Mr. De Los Santos is a 47 y/o male with PMHx of T1DM (insulin pump), CKD III, HTN, Anemia, and Gastroparesis who presents to the ED c/o lethargy and SOB. Most of HPI obtained by father at bedside as patient mostly sleeping. However, when awake patient is alert and oriented and answers questions appropriately. Occasionally would answer questions asked even though eyes are closed. He states he was in his normal state of health yesterday but had some worsening SOB from baseline. Father states this AM they tried to wake him up and he only complained of SOB but denies appearing in distress. They stated they could barely awaken him and had to call 911 because they could not lift him. Pt and father denies any other URI symptoms or appearing ill. They do note he has had progressive edema since needing IVF for a previous admission with gastroparesis. He was started on Lasix 20 mg BID last week and reports only minimal change in lower extremity edema and patient denies increased urine output since starting Lasix. Per ED note, there was complaints of CP but patient denied that during my exam. On last admission (mid July) he was advised to stop Mirtazapine and Valium until F/U with PCP as it was likely contributing to lethargy. Pt was also noted to have hypoglycemia this AM in the 50-60s and his insulin pump has been removed at this time. Father did pull me aside to state the lethargy has been a progressive thing. They notice he will act more lethargic this them but more awake/alert with home health. He went from being an independent person with a job to nearly dependent on his parents. Father states he will sleep majority of the day. Pt's filed for divorce approx. 3 weeks ago and reports multiple social stressors on top of medical stessors. Father feels his lethargy likely has something to do with his mental health. Pt was due to start seeing a the rapist today however will miss this appointment due to hospitalization. Allergies Allergy/AdvReac Type Severity Reaction Status Date / Time shellfish derived Allergy Severe anaphylaxis Verified 08/06/18 10:26 promethazine Allergy Intermediate itchy/hives Verified 08/06/18 10:26 Home Medications Home Medications Medication Instructions Recorded Confirmed Type ondansetron HCl [Zofran] 4 mg PO QID PRN #0 tab 10/05/15 08/06/18 History prochlorperazine [Compazine] 25 mg GA Q12H #0 supp 10/05/15 08/06/18 History insulin pump-infus. set-meter 1 dose NOT APPLICABLE UD #0 dose 05/20/16 08/06/18 History metoclopramide HCl [Reglan] 10 mg PO QID PRN #6 tab 11/26/17 08/06/18 History amlodipine 10 mg PO QAM 07/09/18 08/06/18 History sertraline 50 mg PO QAM 30 Days #30 tab 07/14/18 08/06/18 Rx Past Med/Surg History Medical History Diabetic nephropathy CKD stage 3 due to type 1 diabetes mellitus Anxiety HTN (hypertension) Gastroparesis (Chronic) Mr. De Los Santos is a 47 yr old male with diabetic gastroparesis. Plan: EGD today if endoscopy can accomodate, if not, this will need to be done tomorrow. Will continue IV fluids, antiemetics and will change Reglan from prn to Q6hrs. May also try e-mycin 250mg Q6hrs if able to obtain as on short supply. 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 [employer] Required: No Beliefs That Will Affect Care: None marital status: Legally Current Living Situation: Parent current occupational status: employed Other Information That Helps Us Care for You: No Feels Safe at Home: Yes Safety Concerns: Feels Safe At This Time Smoking Status: Never smoker Hx Alcohol Use: No Hx Substance Use: No Review of Systems Unobtainable due to cognitive status (limited - mostly falls asleep) Constitutional: + fatigue and + weakness; no fever and no chills Respiratory: + cough and + dyspnea Cardiovascular: + edema; no chest pain Gastrointestinal: no abdominal pain, no nausea and no vomiting Physical Exam Vital Signs (Past 24 Hours): Last Vital Signs Temp 36.6 C 08/06/18 09:57 Pulse 85 08/06/18 10:14 Resp 17 08/06/18 10:14 BP 146/89 H 08/06/18 10:14 Pulse Ox 94 08/06/18 10:14 Constitutional: well developed, well nourished and + altered mental status (please disregard as system will not let me unclick this option); no acute distress ENMT: Ears: no hearing impairment Neck: trachea midline Respiratory: normal respiratory effort Auscultation: + crackles some limited assessment due to snoring Cardiovascular: Rate/Rhythm: regular rate and regular rhythm Extremities: + edema (1-2+ b/l lower extremities) Gastrointestinal (Abdomen): Inspection/Auscultation: + abdomen distended and normal bowel sounds Percussion/Palpation: abdomen soft; abdomen nontender Musculoskeletal: Head/Neck/Chest: normocephalic, head atraumatic and neck supple Skin: no rashes, warm and dry Neurologic: moves all extremities Psychiatric: Orientation: oriented x 3 Affect: + flat affect awake when I first entered the room. Largely remains asleep and snoring but will intermittently answer a question when talking with his father. Code Status & VTE Plan Code Status FULL CODE Supervising Physician Co-Signing Physician Notes Attending Attestation - Pt seen/examined, chart reviewed, care plan d/w CAROL Lacey. I agree w/ the julien components of her documentation. 47yo male with T1DM on insulin pump, CKD stage 3 with prior baseline Cr in 2 to 2.5 range, and recent depression with significant psychosocial stressors who presents with lethargy, ongoing depression, and dyspnea. He has evidence of volume overload clinically and radiographically. During my bedside rounds he openly admits to ongoing depression. He is now living with his parents in [place]; he previously was living in [place]. He reports progressive swelling in his abdomen and his legs. PMH, PSH, allergies, meds, sochx, famhx, ros - reviewed VSS, afebrile gen - depressed affect, a/o x 3, lying relatively flat in bed neck - JVD present (mild) mouth - MMM heart - RRR, s1, s2, 1/6 GOKUL lungs - bibasilar rales, no wheeze, no increased work of breathing abd - soft, probable body wall edema or ascites, NT, BS+ ext - 2+ edema labs, cxr, EKG reviewed A/P: 1. ARF/KRYSTAL in setting of CKD stage 3 - nephrology to be consulted. 2. volume overload - either 2nd to #1 or acute/chronic diastolic CHF; bumex 2mg IV x 1 now and follow response. 3. echo with pericardial effusion - moderate; no tamponade physiology seen; suspect due to progressive renal disease; cannot rule out inflammatory condition that could cause such but less likely. Will ask cardiology for their opinion. 4. T1DM with hypoglycemia - pump removed; pharmacy to manage basal-bolus SC insulin regimen. 5. depression - consider adding wellbutrin or effexor to his SSRI; agree w/ holding remeron. 6. lethargy/altered MS - improved. I suspect lethargy is due to depression. Progressive renal disease could be playing a role. Will check records to see if TSH, b12, etc has been checked prior. Guevara Townsend MD (1) Depression Active/Remission status: currently active Depression Type: major depressive disorder Major depression episode severity: moderate Major depression recurrence: unspecified whether recurrent Qualified Code(s): F32.1 - Major depressive disorder, single episode, moderate
[2018-08-06] MEDS ORDERED: BUMETANIDE SOLN 1 MG/4 ML VIAL IV ONE (13:02)
[2018-08-06] MEDS ORDERED: ONDANSETRON 4 MG TAB PO PRN (13:58)
[2018-08-06] MEDS ORDERED: PROCHLORPERAZINE 25 MG SUPP PR PRN (13:58)
[2018-08-06] MEDS ORDERED: METOCLOPRAMIDE HCL 10 MG TABLET PO PRN (13:58)
[2018-08-06] MEDS ORDERED: PHARMACY GLYCEMIC MGMT CONSULT PRN (14:32)
[2018-08-06] MEDS ORDERED: INSULIN GLARGINE SOLOSTAR 100 UNITS/ML 3 ML PEN SC STA (14:39)
--- NOTE | 2018-08-06 14:51 | Pharmacy Report ---
Glycemic Control Consultation - Date of Service August 06, 2018 - Scope Scope: Glycemic Pharmacist consulted by Ebonie Lacey on 08/06/18 for glycemic control and to write orders per [facility] inpatient glycemic control protocol - Objective Weight: 80 kg Accuchecks BSG (last 24hrs): 08/06/18 08/06/18 08/06/18 09:53 10:00 10:35 Glucose 59 L POC Glucose 82 POC Glucose (other) 50 L* 08/06/18 08/06/18 08/06/18 11:27 13:45 13:46 Glucose POC Glucose 98 69 L* 58 L* POC Glucose (other) 08/06/18 14:07 Glucose POC Glucose 85 POC Glucose (other) Laboratory Data (last 24hrs): 08/06/18 10:00 Potassium 4.5 Carbon Dioxide 24 Anion Gap 10.0 Creatinine 4.56 H* Est Cr Clr Drug Dosing 19.4 - Recent Pertinent Medications Outpatient Anti-diabetic Regimen: * Humalog pump * A1c = 8.4 % 06/03/18 - Assessment & Plan Assessment & Plan: ASSESSMENT: * Mr. De Los Santos is a 47yo M p/w acute encephalopathy. He had some concerning lows in the ER; humalog pump was removed a few hours ago, necessitating metabolic insulin sanjana. He is known to the pharmacy glycemic service from previous admissions. PMHx: consistent with DM-I, CKD-III, HTN, GERD, gastroparesis. * If he starts having lows post-prandially, consider novolog---> SQ regular ins ulin to help mimic his impaired carb absorption. PLAN FOR INPATIENT GLYCEMIC CONTROL: * Basal insulin * Lantus 10 x1 STAT, given that his humalog pump is no longer infusing. * Bolus insulin * NovoLog per scale ACHS or Q6hrs while NPO * Goal Range: Low 120 mg/dL - High 160 mg/dL * Correction Factor: 30 mg/dL/unit * Nutritional / Prandial insulin per carb ratio of 1 unit per 10 grams CHO consumed * Please note that the plan above was derived based on current level of insulin resistance and hospital stress. These recommendations are appropriate for inpatient admission only. Plan of care upon discharge will need to be reassessed to avoid potential outpatient hypo/hyperglycemia. Thank you.
[2018-08-06 15:33] LABS: Influenza A virus by PCR Neg for Influ A (Neg); Influenza B virus by PCR Neg for Influ B (Neg)
[2018-08-06 16:36] LABS: BUN Creatinine Ratio 21.9 (10-20); Blood Urea Nitrogen 103 mg/dl (7-18); Calcium 7.8 mg/dl (8.5-10.1); Carbon Dioxide 25 mmol/L (21-32); Chloride 99 mmol/L (98-107); Creatinine Clr Calc Pharmacy 18.8 ml/min; Est GFR (African American) 15.9; Est GFR (Non-African American) 13.7; Glucose 181 mg/dl (70-99); Potassium 4.8 mmol/L (3.5-5.1); Sodium 133 mmol/L (136-145); Troponin I < 0.015 ng/ml (0-0.045)
[2018-08-06] MEDS: INSULIN ASPART 100 UNITS/ML 3 ML PEN SC SCH ×2 (17:04→21:41)
--- NOTE | 2018-08-06 19:55 | Nephrology Consultation ---
Date of Consultation August 06, 2018 Assessment & Plan (1) KRYSTAL (acute kidney injury): rapidly progressive renal insufficiency now w/ plm edema, pericardial effusion, HTN and (only to me apparently ) c/o R flank pain; all of that said, he responded well to one dose of IV bumex w/ UOP and looks comfortable currently -may well need dialysis this admission, emergently if he decompensates w/ diuresis alone -check renal u/s, get UA-ordered renal diet; doubt acute obstruction w/ stone but will r/o -daily bmp -strict I/O -diuretics as below -anemia may improve w/ diuresis; no indication for emergent transfusion -chemistries acceptable for now -BP elevated but better than prior admissions when he ran sbp 180-190s >> monitor overnight Present on Admission?: Yes (2) Pulmonary edema: -will give another 2 mg bumex IV now -limited sodium and started FR 1.5L -will reassess in am for need for further diuretics -agree w/ cardiology eval Present on Admission?: Yes History of Present Illness Reason for Consultation: KRYSTAL on CKD Requesting Physician: Dr Townsend Attending Physician: Guevara Townsend History of Present Illness 47 y/o M whom I'm asked to see for KRYSTAL on CKD after he was admitted earlier today for same in setting of acute encephalopathy and concern for severe depression. this is his 4th admission here since May 2018, w/ most recent d/c on 07/19 for aspiration PNA. PMH includes DM1 dx'd approx 2001 w/ retinopathy, on insulin pump and c/b severe gastroparesis, HTN dx'd summer 2017, anemia, remote hx of calcium oxalate kidney stones (last one w2013). He does have a hx of taking naproxen tid prn abd pain last used a few months back per OP [facility] note. He denies any recent naproxen or nsaid use to me. His lisinopril was held after recent hospital stays. at 07/27 OP eval w/ [facility], he was started on lasix 20 mg daily. He was brought to ER by ambulance after family could not waken him this am. He did have low BG in 50s . He had also been taking mirtazepine and valium which he'd been previously advised to stop. Several severe psychosocial stressors recently including job loss, divorce. He was seen by our group last month here during admission for HTN, KRYSTAL, altered MS. His presenting creatinine was 4.6, up to 4.7 this evening. he was 3.2 at most recent d/c on 07/19; in late may/ early june 2018 was running mid to high 2's. from November through april 2018, his creatinine ran in mid 1's. HE had a 5 day admission at that time for mgt of gastroparesis. He has been seen by our group on previous admissions and thought to have rapidly progressive renal failure from uncontrolled DM. he had 8 gm proteinuria on spot ratio. His CXR showed congestive failure pulmonary edema >> he had 2 mg IV bumex at 1300, a one time dose. He is on 2L 02NC; a TTE showed pericardial effusion w/o concern for tamponade. Allergies Allergy/AdvReac Type Severity Reaction Status Date / Time shellfish derived Allergy Severe anaphylaxis Verified 08/06/18 10:26 promethazine Allergy Intermediate itchy/hives Verified 08/06/18 10:26 Home Medications Home Medications Medication Instructions Recorded Confirmed Type ondansetron HCl [Zofran] 4 mg PO QID PRN #0 tab 10/05/15 08/06/18 History prochlorperazine [Compazine] 25 mg [place] Q12H #0 supp 10/05/15 08/06/18 History insulin pump-infus. set-meter 1 dose NOT APPLICABLE UD #0 dose 05/20/16 08/06/18 History metoclopramide HCl [Reglan] 10 mg PO QID PRN #6 tab 11/26/17 08/06/18 History amlodipine 10 mg PO QAM 07/09/18 08/06/18 History sertraline 50 mg PO QAM 30 Days #30 tab 07/14/18 08/06/18 Rx Patient History Medical History Diabetic nephropathy CKD stage 3 due to type 1 diabetes mellitus Anxiety HTN (hypertension) Gastroparesis (Chronic) Mr. De Los Santos is a 47 yr old male with diabetic gastroparesis. Plan: EGD today if endoscopy can accomodate, if not, this will need to be done tomorrow. Will continue IV fluids, antiemetics and will change Reglan from prn to Q6hrs. May also try e-mycin 250mg Q6hrs if able to obtain as on short supply. Diabetes (Chronic) Acid reflux CKD (chronic kidney disease) Depression Gastroparesis due to DM Hypertension Type I diabetes mellitus Surgical History H/O shoulder surgery History of appendectomy History of hip surgery Family History Grandfather Heart attack Social History Preferred Language: Greenlandic Communication Ability: Effective Lace Stripper Required: No Beliefs That Will Affect Care: None marital status: Legally Current Living Situation: Parent current occupational status: employed Other Information That Helps Us Care for You: No Feels Safe at Home: Yes Safety Concerns: Feels Safe At This Time Smoking Status: Never smoker Hx Alcohol Use: No Hx Substance Use: No Review of Systems Constitutional: + fatigue, + weakness and + daytime sleepiness Eyes: no worsening vision Ear, Nose, Mouth, Throat: no dry mouth Respiratory: + dyspnea and + dyspnea on exertion; no cough Cardiovascular: + dyspnea, + dyspnea on exertion, + orthopnea and + edema; no chest pain and no palpitations Additional Comments: no scapular pain Gastrointestinal: + abdominal pain, + early satiety, + nausea and + vomiting c/o flank pain R side Genitourinary (Male): + urinary frequency and + flank pain; no dysuria, no difficulty urinating, no urinary hesitancy, no urinary incontinence, no post- void dribbling, no nocturia and no hematuria Musculoskeletal: no myalgia, no muscle weakness and no body aches Integumentary: no rash Neurologic: no localized weakness, no generalized weakness and no confusion Psychiatric: + behavioral changes Endocrine: + fatigue Hematologic / Lymphatic: no easy bleeding Physical Exam Vital Signs (Past 24 Hours): Last Vital Signs Temp 36.5 C 08/06/18 15:20 Pulse 85 08/06/18 16:30 Resp 19 08/06/18 15:20 BP 152/78 H 08/06/18 15:20 Pulse Ox 90 08/06/18 15:20 Constitutional: well developed and well nourished on 02nc, maneuvers readily for exam Eyes: EOM intact bilaterally ENMT: Ears: no external ear abnormality Nose: no external nose abnormality Mouth: + dry oral mucous membranes Neck: no nuchal rigidity Respiratory: normal respiratory effort Auscultation: + diminished lung sounds and + crackles (R base) Cardiovascular: Rate/Rhythm: regular rate and regular rhythm Heart Sounds: no murmur and no cardiac rub Extremities: + edema (2+ BL distal LE) Gastrointestinal (Abdomen): Inspection/Auscultation: normal bowel sounds Percussion/Palpation: abdomen soft; abdomen nontender Musculoskeletal: Extremities: strength 5/5 throughout Skin: no rashes, warm and dry Neurologic: spicer, fluent speech, no tremor Psychiatric: Orientation: alert and oriented x 3 Eye Contact: + fair eye contact Affect: + blunted affect Genitourinary: no parker Results & Data Laboratory Results Abnormal lab results 08/06/18 08/06/18 08/06/18 Range/Units 10:00 10:00 10:18 WBC 11.03 H (4.8-10.8) K/uL RBC 2.90 L (4.7-6.1) M/uL Hgb 8.7 L (14.0-18.0) g/dL POC Hgb (14.0-18.0) g/dl Hct 27.1 L (42-52) % POC Hct (42-52) % Plt Count 555 H (130-400) K/uL Immature Gran # (Auto) 0.10 H (0.00-0.02) K/uL Neut # (Auto) 8.05 H (1.4-6.5) K/uL Hubbard # (Auto) 1.08 H (0.11-0.59) K/uL VBG pH 7.42 H (7.36-7.41) POC Sodium (135-144) mEq/L Sodium 133 L (136-145) mmol/L POC Chloride (101-112) mEq/L POC Anion Gap (16-25) mmol/L POC BUN (7-18) mg/dl BUN 98 H (7-18) mg/dl Creatinine 4.56 H* (0.6-1.4) mg/dl POC Creatinine (0.6-1.3) mg/dl BUN/Creatinine Ratio 21.6 H (10-20) Glucose 59 L (70-99) mg/dl POC Glucose (70-99) POC Glucose (other) (70-99) mg/dl Calcium 7.7 L (8.5-10.1) mg/dl POC Ioniz Calcium Peterson (1.12-1.32) mmol/l Magnesium 2.8 H (1.8-2.4) mg/dl Total Bilirubin 0.1 L (0.2-1) mg/dl Alkaline Phosphatase 138 H (45-117) U/L Albumin 2.1 L (3.4-5.0) gm/dl Globulin 4.3 H (2.5-4.0) gm/dl Albumin/Globulin Ratio 0.5 L (0.9-2) 08/06/18 08/06/18 08/06/18 Range/Units 10:35 13:45 13:46 WBC (4.8-10.8) K/uL RBC (4.7-6.1) M/uL Hgb (14.0-18.0) g/dL POC Hgb 7.8 L (14.0-18.0) g/dl Hct (42-52) % POC Hct 23 L (42-52) % Plt Count (130-400) K/uL Immature Gran # (Auto) (0.00-0.02) K/uL Neut # (Auto) (1.4-6.5) K/uL Hubbard # (Auto) (0.11-0.59) K/uL VBG pH (7.36-7.41) POC Sodium 133 L (135-144) mEq/L Sodium (136-145) mmol/L POC Chloride 99 L (101-112) mEq/L POC Anion Gap 14.0 L (16-25) mmol/L POC BUN 95 H (7-18) mg/dl BUN (7-18) mg/dl Creatinine (0.6-1.4) mg/dl POC Creatinine 4.7 H* (0.6-1.3) mg/dl BUN/Creatinine Ratio (10-20) Glucose (70-99) mg/dl POC Glucose 69 L* 58 L* (70-99) POC Glucose (other) 50 L* (70-99) mg/dl Calcium (8.5-10.1) mg/dl POC Ioniz Calcium Peterson 0.99 L (1.12-1.32) mmol/l Magnesium (1.8-2.4) mg/dl Total Bilirubin (0.2-1) mg/dl Alkaline Phosphatase (45-117) U/L Albumin (3.4-5.0) gm/dl Globulin (2.5-4.0) gm/dl Albumin/Globulin Ratio (0.9-2) 08/06/18 08/06/18 Range/Units 15:54 16:28 WBC (4.8-10.8) K/uL RBC (4.7-6.1) M/uL Hgb (14.0-18.0) g/dL POC Hgb (14.0-18.0) g/dl Hct (42-52) % POC Hct (42-52) % Plt Count (130-400) K/uL Immature Gran # (Auto) (0.00-0.02) K/uL Neut # (Auto) (1.4-6.5) K/uL Hubbard # (Auto) (0.11-0.59) K/uL VBG pH (7.36-7.41) POC Sodium (135-144) mEq/L Sodium 133 L (136-145) mmol/L POC Chloride (101-112) mEq/L POC Anion Gap (16-25) mmol/L POC BUN (7-18) mg/dl BUN 103 H (7-18) mg/dl Creatinine 4.70 H* (0.6-1.4) mg/dl POC Creatinine (0.6-1.3) mg/dl BUN/Creatinine Ratio 21.9 H (10-20) Glucose 181 H (70-99) mg/dl POC Glucose 219 H (70-99) POC Glucose (other) (70-99) mg/dl Calcium 7.8 L (8.5-10.1) mg/dl POC Ioniz Calcium Peterson (1.12-1.32) mmol/l Magnesium (1.8-2.4) mg/dl Total Bilirubin (0.2-1) mg/dl Alkaline Phosphatase (45-117) U/L Albumin (3.4-5.0) gm/dl Globulin (2.5-4.0) gm/dl Albumin/Globulin Ratio (0.9-2) Diagnostic Findings TTE unremarkable except for moderate pericardial effusion w/ tamponade CXR 1. Cardiomegaly with significant congestive change and pulmonary edema. 2. Small bilateral pleural effusions, left greater than right. (1) Pulmonary edema Chronicity: acute Qualified Code(s): J81.0 - Acute pulmonary edema
[2018-08-06] MEDS ORDERED: BUMETANIDE 2 MG in SYRINGE 0 ML IV ONE (21:00)
--- NOTE | 2018-08-06 21:29 | Ultrasound Report ---
US renal/blad retro comp HISTORY: 47 years-old Male rule out obstruction; rapidly renal failure acute renal failure COMPARISON: Renal ultrasound 07/18/2018 TECHNIQUE: Multiple real-time sonographic images of the kidneys and urinary bladder were obtained ass essing grayscale appearance and color flow FINDINGS: Right kidney measures 13.0 cm in length and again appears mildly echogenic. Nonobstructing 5 mm calcu caesar of the inferior pole right kidney. No right-sided hydronephrosis or suspicious mass lesions. Left kidney measures 11.6 cm in length. Suggestion of left renal cysts, largest of which measures up to 1.5 cm. No left-sided renal calculi or hydronephrosis. Left kidney also appears to be mildly echog enic. Mild urinary bladder distention with internal urinary bladder debris. Ureteral jets are unremarkable. IMPRESSION: 1. 5 mm nonobstructing calculus of the inferior pole right kidney. No hydronephrosis. 2. Mild urinary bladder distention with urinary bladder debris. Correlate with urinalysis. 3. Increased echogenicity of the bilateral kidneys redemonstrated suggestive of underlying medical re nal disease. The above report was generated using voice recognition software. It may contain grammatical, syntax o r spelling errors. Electronically signed by: Ti Martinez M.D. 08/06/2018 9:27 PM
[2018-08-06] MEDS: HEPARIN SOD 5,000 UNIT/0.5 ML VIAL SQ SCH (21:42)
[2018-08-07 05:55] LABS: Hematocrit (blood only) 24.4 % (42-52); Hemoglobin 7.9 g/dL (14.0-18.0); Mean Corpuscular Hgb Conc 32.4 g/dL (32-36); Mean Corpuscular Volume 92.8 fL (80-100); Mean Platelet Volume 8.1 fL (7.4-10.4); Platelet Count 495 K/uL (130-400); RDW Standard Deviation 44.3 fL (36.4-46.3); Red Blood Count 2.63 M/uL (4.7-6.1); White Blood Count 9.18 K/uL (4.8-10.8)
[2018-08-07 06:40] LABS: BUN Creatinine Ratio 20.6 (10-20); Calcium 7.4 mg/dl (8.5-10.1); Creatinine Clr Calc Pharmacy 16.9 ml/min; Potassium 4.5 mmol/L (3.5-5.1)
[2018-08-07] MEDS: SERTRALINE HCL 50 MG TABLET PO SCH (08:54)
[2018-08-07] MEDS: AMLODIPINE BESYLATE 5 MG TAB PO SCH (08:54)
[2018-08-07] MEDS: HEPARIN SOD 5,000 UNIT/0.5 ML VIAL SQ SCH ×2 (08:54→20:52)
[2018-08-07] MEDS: INSULIN ASPART 100 UNITS/ML 3 ML PEN SC SCH ×4 (08:55→20:51)
[2018-08-07] MEDS ORDERED: FUROSEMIDE 100 MG in SYRINGE 0 ML IV ONE (09:45)
[2018-08-07] MEDS: FUROSEMIDE 100 MG in DEXTROSE 5% 90 ML IV SCH ×3 (10:35→23:50)
[2018-08-07 11:37] LABS: Appearance Urine Clear (Clear); Bacteria Urine Automated Negative (Negative); Bilirubin Urine Negative (Negative); Blood Urine Negative (Negative); Color Urine Yellow; Epithelial Cell Urine Auto >30 /lpf (0-5); Glucose Urine UA Negative (Negative); Ketones Urine Negative (Negative); Leukocyte Esterase Urine Negative (Negative); Nitrite Urine Negative (Negative); Protein Urine 2+ (Negative); RBC Urine Automated 0-4 /hpf (0-4); Specific Gravity Urine 1.014 (1.000-1.030); Urobilinogen Urine Negative (Negative); pH Urine 5.5 (4.5-7.5)
[2018-08-07 11:52] LABS: Amphetamines+Metham, Urine Neg (Neg); Barbiturates, Urine Neg (Neg); Benzodiazepine, Urine Pos (Neg); Cocaine, Urine Neg (Neg); MDMA (Ecstacy), Urine Neg (Neg); Methadone, Urine Neg (Neg); Opiate, Urine Neg (Neg); Phencyclidine, Urine Neg (Neg)
[2018-08-07 12:14] LABS: Amorphous Sediment Urine Present (None Prsent)
--- NOTE | 2018-08-07 14:06 | Psychiatric Consultation ---
Date of Consultation August 07, 2018 Impression / Recommendations Impression 47 yo male with reactive depression to both divorce and his physical condition. I continue to feel that sedating meds are not being cleared well due to kidney function related to DM, particularly common in longer acting benzos being prescribed and once sedated, self care becomes an issue given Type I DM. If he truly was taking 10 mg total daily dose of Valium again, it may need to be tapered rather than stopped abruptly due to withdrawal risk. Ideally a non- benzodiazpine could be found for his gastroparesis as benzos are depressants on the nervous system. If needs to continue benzo for that condition (as I am not recommending from a psych standpoint) then a shorter acting agent such as Ativan may be less likely to cause excessive sedation when there are fluctuations in renal clearance. I'd be hesitant to resume Remeron given sedation could worsen respiratory status at night. There is no immediate indication for inpatient mental health treatment. Risk Factors Assessment Do You Have Access To A Gun?: No Psych History Identifying Data 47 yo male from [place] who was last seen during his last inpatient stay on 07/09/18. He was seen individually and with his parents. Chief Complaint reports feeling much better today History of Present Illness Mr. De Los Santos is a 47 y/o male with PMHx of T1DM (insulin pump), CKD III, HTN, Anemia, and Gastroparesis who presented to the ED with similar presentation--c/o lethargy and SOB. On last admission (mid July) he was advised to stop Mirtazapine and Valium until follow-up with PCP due to lethargy. Today he confirms that he did resume at least the Valium between hospitalizations and parents also confirm that his GI specialist in [facility] was aware. He essentially endorses same low mood and anxiety as last stay due to recurrent health issues. His anemia continues and Creatinine increased >5 today. He did receive IV Bumex over night and is no longer requiring oxygen. He and his parents state that he has "good days and bad", for whatever reason this quickly changes and when he doesn't eat and drink as well he becomes more lethargic that then makes it harder to attend to ADLs. He does have change in li festyle that is stressful in that more dependent on his parents, filed for divorce last month, and he is unable to work. He was to start therapy at [facility] but he was hospitalized during 1 appointment and another a few weeks later was cancelled by the therapist. Past Psychiatric History Previous Psych History: Ariana Jenkins Current Psychiatric Diagnosis: MDD Outpatient Services: starting therapy with [facility] [employer] Previous Psych Admissions: none Do You Have Access To A Gun?: No History of Previous Suicide Attempt: No Past Medication Trials: Valium for gastroparesis, Remeron, Zoloft Allergies Allergy/AdvReac Type Severity Reaction Status Date / Time shellfish derived Allergy Severe anaphylaxis Verified 08/06/18 10:26 promethazine Allergy Intermediate itchy/hives Verified 08/06/18 10:26 Home Medications Home Medications Medication Instructions Recorded Confirmed Type ondansetron HCl [Zofran] 4 mg PO QID PRN #0 tab 10/05/15 08/06/18 History prochlorperazine [Compazine] 25 mg [place] Q12H #0 supp 10/05/15 08/06/18 History insulin pump-infus. set-meter 1 dose NOT APPLICABLE UD #0 dose 05/20/16 08/06/18 History metoclopramide HCl [Reglan] 10 mg PO QID PRN #6 tab 11/26/17 08/06/18 History amlodipine 10 mg PO QAM 07/09/18 08/06/18 History sertraline 50 mg PO QAM 30 Days #30 tab 07/14/18 08/06/18 Rx Family History denied Substance Abuse History denied Personal History Highest Grade Completed: High School Graduate and Vocational Training ([employer]) Employment Status: Other (medical leave from work as a [employer]) Marital Status: Beliefs That Will Affect Care: None History of Legal Problems: no Patient History Medical History Diabetic nephropathy CKD stage 3 due to type 1 diabetes mellitus Anxiety HTN (hypertension) Gastroparesis (Chronic) Mr. De Los Santos is a 47 yr old male with diabetic gastroparesis. Plan: EGD today if endoscopy can accomodate, if not, this will need to be done tomorrow. Will continue IV fluids, antiemetics and will change Reglan from prn to Q6hrs. May also try e-mycin 250mg Q6hrs if able to obtain as on short supply. Diabetes (Chronic) Acid reflux CKD (chronic kidney disease) Depression Gastroparesis due to DM Hypertension Type I diabetes mellitus Surgical History H/O shoulder surgery History of appendectomy History of hip surgery Family History Grandfather Heart attack Social History Communication Ability: Effective Beliefs That Will Affect Care: None marital status: Legally Current Living Situation: Parent current occupational status: employed Other Information That Helps Us Care for You: No Feels Safe at Home: Yes Safety Concerns: Feels Safe At This Time Smoking Status: Never smoker Hx Alcohol Use: No Hx Substance Use: No Physical Exam Psychiatric Orientation: alert and oriented x 3 Apperance: appropriately groomed Eye Contact: + fair eye contact Motor Behavior: no abnormal motor movements Speech: normal rate/rhythm/volume of speech (not particularly spontaneous) Affect: + depressed affect Mood: + depressed mood Thought Process: linear/logical thought process Thought Content: + preoccupation Suicidal Thoughts: denies suicidal thoughts Homicidal Thoughts: denies homicidal thoughts Hallucinations: no auditory hallucinations and no visual hallucinations Cognition: attention grossly intact and language grossly intact Insight: + fair insight Judgement: + fair judgement Vital Signs (Past 24 Hours) Last Vital Signs Temp 37 C 08/07/18 12:22 Pulse 84 08/07/18 12:22 Resp 16 08/07/18 12:22 BP 162/84 H 08/07/18 12:22 Pulse Ox 93 08/07/18 12:22 Review of Systems All systems reviewed & are unremarkable except as noted in HPI & below Results & Data Medications Administered Amlodipine Besylate (Norvasc) 10 mg PO QAM [facility] Stop: 09/06/18 08:59 Last Admin: 08/07/18 08:54 Dose: 10 mg Documented by: [id number] Heparin Sodium (Porcine) (Heparin Sodium (Porcine)) 5,000 units SQ Q12 [facility] Stop: 09/05/18 20:59 Last Admin: 08/07/18 08:54 Dose: 5,000 units Documented by: [id number] Cosigned by: [id number] Admin: 08/06/18 21:42 Dose: 5,000 units Documented by: [id number] Cosigned by: [id number] Furosemide 100 mg/ Dextrose 100 mls @ 15 mls/hr IV .[id number] [facility] Stop: 09/06/18 09:44 Last Admin: 08/07/18 10:35 Dose: 15 mg/hr, 15 mls/hr Documented by: [id number] Insulin Aspart (Novolog Flexpen) 0 units SC [facility]; Protocol Stop: 09/05/18 16:29 Last Admin: 08/07/18 12:12 Dose: 6 units Documented by: [id number] Cosigned by: [id number] Admin: 08/07/18 08:55 Dose: 4 units Documented by: [id number] Cosigned by: [id number] Admin: 08/06/18 21:41 Dose: 1 units Documented by: [id number] Cosigned by: [id number] Admin: 08/06/18 17:04 Dose: 6 units Documented by: [id number] Cosigned by: [id number] Miscellaneous (Carbohydrates For Hypoglycemia) 15 - 30 gm PO UD PRN PRN Reason: Hypoglycemia Treatment Stop: 09/05/18 12:13 Last Admin: 08/06/18 13:48 Dose: 15 gm Documented by: [id number] Sertraline [facility] (Zoloft) [facility] [place] Stop: 09/06/18 08:59 Last Admin: 08/07/18 08:54 Dose: 50 mg Documented by: [id number]
[2018-08-07] MEDS ORDERED: INSULIN GLARGINE SOLOSTAR 100 UNITS/ML 3 ML PEN SC ONE (14:30)
--- NOTE | 2018-08-07 14:43 | Pharmacy Report ---
Pharmacy Glycemic Short Note 2 - Date of Service August 07, 2018 - Glycemic Short BSG Results (Last 24 hours): 08/06/18 08/06/18 08/06/18 15:54 16:28 21:41 Glucose 181 H POC Glucose 219 H 168 H 08/07/18 08/07/18 08/07/18 05:32 07:17 10:52 Glucose 116 H POC Glucose 140 H 183 H 08/07/18 11:24 Glucose POC Glucose 191 H OUTPATIENT ANTIDIABETIC REGIMEN: Humalog pump * A1c = 8.4 % 06/03/18 ASSESSMENT: 08/07/18 * Hypoglycemia resolved * Fasting BSG is at goal. I will order a one time dose of 15 units of Lantus for today then per scale. During previous admissions he has required Lantus 10-18 units per day. Continue current Novolog coverage 08/06/18 * Mr. De Los Santos is a 47yo M p/w acute encephalopathy. He had some concerning lows in the ER; humalog pump was removed a few hours ago, necessitating metabolic insulin sanjana. He is known to the pharmacy glycemic service from previous admissions. PMHx: consistent with DM-I, CKD-III, HTN, GERD, gastroparesis. * If he starts having lows post-prandially, consider novolog---> SQ regular insulin to help mimic his impaired carb absorption. PLAN FOR INPATIENT GLYCEMIC CONTROL: * Basal insulin * Lantus 15 x1, then per scale qAM * 12 units for BSG less than 120 * 15 units for BSG 120 or greater * Bolus insulin * NovoLog per scale ACHS or Q6hrs while NPO * Goal Range: Low 120 mg/dL - High 160 mg/dL * Correction Factor: 30 mg/dL/unit * Nutritional / Prandial insulin per carb ratio of 1 unit per 10 grams CHO consumed
--- NOTE | 2018-08-07 15:14 | Cardiology Consultation ---
Date of Consultation August 07, 2018 Assessment & Plan (1) Pericardial effusion: Echocardiogram was personally reviewed. Feel that this effusion is only small in degree. There is no evidence of cardiac tamponade. Suspect this is on the basis of his renal failure. No further cardiac evaluation necessary at this time. (2) Volume overload: The patient has evidence of peripheral edema on physical examination, and pulmonary edema by his admission chest x-ray. He has responded well to intravenous diuretics. Again, suspect this on the basis of his acute on chronic renal failure. (3) Abnormal ECG: Low-voltage noted on EKG likely secondary to the pericardial effusion. History of Present Illness Attending Physician: Guevara Townsend History of Present Illness Mr. De Los Santos is a 47-year-old male admitted yesterday with an acute encephalopathy, volume overload, and a mild pericardial effusion. This consultation was ordered to of systems cardiac management. The patient presented yesterday with acute mental status changes felt secondary to acute on chronic renal failure and an inability to properly clear his Valium and mirtazapine. He is also noted to be significantly hypoglycemic at the time of his presentation. There was evidence of significant volume overload and pulmonary edema noted on his chest x-ray. Fortunately, the patient has responded well to the use of intravenous diuretics. As part of his workup, an echocardiogram was performed which noted normal left ventricular systolic function and no evidence of diastolic dysfunction. There was a moderate pericardial effusion as interpreted by Dr. Spivey. The patient does admit to progressive exertional dyspnea and lower extremity edema leading up to this admission. He has never experienced exertional chest pain. He further denies syncope, presyncope, PND, orthopnea, palpitations, and claudication. The patient has never known of a cardiac event. He has never had a cardiac catheterization or stress test. The patient has been under a great deal of emotional stress. He has recently lost his job and his has filed for divorce. Currently, patient is resting comfortably in bed. He explains that his dyspnea has improved dramatically. Past medical history 1. Hypertension 2. Chronic renal failure 3. Diabetes mellitus-2001 4. Diabetic gastroparesis 5. Nephrolithiasis 6. GERD 7. Depression 8. History of shoulder surgery 9. Appendectomy Social history Currently out of work. 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 Family history No early coronary artery disease Review of systems A 10 point review of systems was negative except for that described above. Allergies Allergy/AdvReac Type Severity Reaction Status Date / Time shellfish derived Allergy Severe anaphylaxis Verified 08/06/18 10:26 promethazine Allergy Intermediate itchy/hives Verified 08/06/18 10:26 Home Medications Home Medications Medication Instructions Recorded Confirmed Type ondansetron HCl [Zofran] 4 mg PO QID PRN #0 tab 10/05/15 08/06/18 History prochlorperazine [Compazine] [address] Q12H #0 supp 10/05/15 08/06/18 History insulin pump-infus. set-meter 1 dose NOT APPLICABLE UD #0 dose 05/20/16 08/06/18 History metoclopramide HCl [Reglan] 10 mg PO QID PRN #6 tab 11/26/17 08/06/18 History amlodipine 10 mg PO QAM 07/09/18 08/06/18 History sertraline 50 mg PO QAM 30 Days #30 tab 07/14/18 08/06/18 Rx Patient History Medical History Diabetic nephropathy CKD stage 3 due to type 1 diabetes mellitus Anxiety HTN (hypertension) Gastroparesis (Chronic) Mr. De Los Santos is a 47 yr old male with diabetic gastroparesis. Plan: EGD today if endoscopy can accomodate, if not, this will need to be done tomorrow. Will continue IV fluids, antiemetics and will change Reglan from prn to Q6hrs. May also try e-mycin 250mg Q6hrs if able to obtain as on short supply. Diabetes (Chronic) Acid reflux CKD (chronic kidney disease) Depression Gastroparesis due to DM Hypertension Type I diabetes mellitus Surgical History H/O shoulder surgery History of appendectomy History of hip surgery Family History Grandfather Heart attack Social History Communication Ability: Effective Beliefs That Will Affect Care: None marital status: Legally Current Living Situation: Parent current occupational status: employed Other Information That Helps Us Care for You: No Feels Safe at Home: Yes Safety Concerns: Feels Safe At This Time Smoking Status: Never smoker Hx Alcohol Use: No Hx Substance Use: No Physical Exam Vital Signs (Past 24 Hours): Last Vital Signs Temp 37 C 08/07/18 12:22 Pulse 84 08/07/18 12:22 Resp 16 08/07/18 12:22 BP 162/84 H 08/07/18 12:22 Pulse Ox 93 08/07/18 12:22 Physical Exam: In general this is a well-developed well-nourished white male in no acute distress. HEENT exam is negative. Neck is supple with full carotid upstrokes. There are no carotid bruits. Jugular venous pressure is flat at 90. There is no thyromegaly. Cardiovascular exam reveals a regular rhythm with a normal S1 and S2. No S3, S4, or murmurs are noted. Lungs are clear without rales, rhonchi, or wheezes. Abdomen is soft and nontender without bruits. Extremities reveal intact radial artery and posterior tibial pulses bilaterally. There is trace pretibial edema. Results & Data Laboratory Results CBC notes hemoglobin 7.9, crit 24.4, white count 9.18, platelet count [id number]. Electrolytes notice sodium 135, potassium 4.5, chloride 101, bicarb 26, BUN 106, creatinine 5.24, and glucose of 116. Troponin I levels less than 0.015 x 2. Diagnostic Findings EKG notes sinus rhythm and low voltage throughout. Echocardiogram was personally reviewed which noted normal left ventricular systolic function and a small circumferential pericardial effusion without echocardiographic evidence of tamponade. Chest x-ray notes cardiomegaly and congestive changes.
--- NOTE | 2018-08-07 19:40 | Nephrology Progress Note ---
Date of Service August 07, 2018 Assessment & Plan (1) KRYSTAL (acute kidney injury): rapidly progressive renal insufficiency. Cr uptrending to 5.2 today. w/ plm edema, pericardial effusion, HTN Did not respond well to o IV bumex w/ UOP 900ml -may well need dialysis this admission, emergently if he decompensates w/ diuresis alone -daily bmp -strict I/O -anemia may improve w/ diuresis; no indication for emergent transfusion (2) Pulmonary edema: -will give lasix 80mg bolus and lasix drip with goal net negative 2litres daily -limited sodium and started FR 1.5L -will reassess in am for need for further diuretics Subjective Seen in f/u for KRYSTAL and volume overload. He feels better today. No SOB. Has leg swelling. urine output only 900ml. Cr uptrending to 5.2 today Review of Systems All systems reviewed & are unremarkable except as noted in HPI & below Physical Exam Vital Signs (Past 24 Hours): Last Vital Signs Temp 37.1 C 08/07/18 15:58 Pulse 83 08/07/18 16:00 Resp 18 08/07/18 15:58 BP 150/78 H 08/07/18 15:58 Pulse Ox 90 08/07/18 15:58 Physical Exam: General exam: Appears comfortable, no acute distress HEENT: Pupils are equal and reactive to light Neck: JVD+, neck is supple trachea is midline Respiratory system: Crackles bilaterally. Gastrointestinal: Abdomen is soft, non distended, non tender, bowel sounds are present CVS: Regular rate and rhythm. No murmurs, rubs or gallops Musculoskeletal: No joint or muscle tenderness Extremities: Non tender, 2+ edema, peripheral pulses are present Neuro: Oriented, no tremors, no focal neurological deficits Skin: No rashes Results & Data Laboratory Results cr 5.2, k 4.5 (1) Pulmonary edema Chronicity: acute Qualified Code(s): J81.0 - Acute pulmonary edema
--- NOTE | 2018-08-07 20:18 | Hospitalist Progress Note ---
Date of Service August 07, 2018 Assessment & Plan (1) Acute encephalopathy: Resolved. May have been toxic from remeron. May have been metabolic from worsening renal function. No evidence of any infectious process. Present on Admission?: Yes (2) KRYSTAL (acute kidney injury): In setting of CKD stage 3. The acute kidney injury has worsened overnight with attempts at diuresis. Despite the worsening in his renal function he actually feels better today. Agree with nephrology recommendations for lasix infusion. Repeat BMP in am. Present on Admission?: Yes (3) Volume overload: This is likely due to his acute renal failure rather than diastolic CHF. Echo with preserved EF. s/p 2 doses of IV bumex overnight with nearly 1000cc of diuresis. Agree with IV lasix bolus followed by drip. Present on Admission?: Yes (4) Type 1 diabetes: Insulin pump on hold. Pharmacy consulted for glycemic management of basal-bolus SC regimen. Control adequate today. Appreciate pharmacy efforts. (5) Diabetic gastroparesis: no issues today (6) Essential hypertension: controlled with current regimen of meds (7) Depression: Numerous psychosocial stressors including separation from his , not seeing his 2 kids (only 1x/week), move to [place] from [place], etc. Remeron on hold due to sedation. Appreciate any psychiatry recommendations. Cont SSRI. (8) Anemia: Likely due to ACD from CKD. CBC in am. (9) DVT prophylaxis: Heparin q12h. (10) Pericardial effusion: mild-moderate. seen by cardiology today, Dr. Romero. I agree w/ him this is likely due to progressive renal disease. It is not causing any tamponade physiology. Ok to monitor. appreciate cardiology consultation. (11) Chronic kidney disease (CKD), stage III (moderate): baseline Cr 2 to 2.5. renal u/s today w/o obstruction. (12) Urinary retention: patient had significant retention and did not have the sensation to void. if this was chronic there should be hydronephrosis on renal u/s (ultrasound did not show any hydro). acute retention - cause? does he have neurogenic bladder from diabetic neuropathy? BPH? prostatitis? other? at some point needs DAVIS. parker now in place. Subjective upon entering the pt's room he stated "I feel better today." he was lying at about 10 degrees in bed and was quite comfortable. denied any orthopnea/PND overnight. tele stable through the night as well. denies cough. he is more awake/alert than yesterday again admits to depression & psychosocial stressors apparently had urinary retention overnight bladder scan for nearly 1000cc did not have sensation to void he then voided 500cc only parker was placed, and >700cc was obtained upon catheterization has been diabetic for 15+ years Respiratory: no cough and no dyspnea Cardiovascular: + edema; no chest pain Gastrointestinal: no abdominal pain, no nausea and no vomiting Physical Exam Vital Signs (Past 24 Hours): Last Vital Signs Temp 36.8 C 08/07/18 19:37 Pulse 84 08/07/18 19:37 Resp 18 08/07/18 19:37 BP 154/76 H 08/07/18 19:37 Pulse Ox 91 08/07/18 19:37 Constitutional: well developed and well nourished; no acute distress looks better today ENMT: external ear and nose normal, oropharynx normal Respiratory: normal respiratory effort; no respiratory distress Auscultation: + rales (bases); no rhonchi and no wheezes Cardiovascular: Rate/Rhythm: regular rate and regular rhythm Heart Sounds: normal S1, normal S2 and + murmur (1/6 GOKUL) Vessels: posterior tibial pulses present and dorsalis pedis pulses present; no JVD Extremities: + edema (1-2+ b/l ) Gastrointestinal (Abdomen): normal bowel sounds, soft, nontender, no hepatosplenomegaly probable body wall edema vs mild ascites Psychiatric: Orientation: alert and oriented x 3 Mood: + depressed mood Results & Data Laboratory Results Laboratory Results - last 24 hr 08/06/18 08/07/18 08/07/18 21:41 05:32 05:32 WBC 9.18 RBC 2.63 L Hgb 7.9 L Hct 24.4 L MCV 92.8 MCH 30.0 MCHC 32.4 RDW Std Deviation 44.3 RDW Coeff of Kami 13.0 Plt Count 495 H MPV 8.1 Sodium 135 L Potassium 4.5 Chloride 101 Carbon Dioxide 26 Anion Gap 8.0 BUN 106 H Creatinine 5.24 H* D Est Cr Clr Drug Dosing 16.9 Est GFR ( Amer) 14.0 Est GFR (Non-Af Amer) 12.0 BUN/Creatinine Ratio 20.6 H Glucose 116 H POC Glucose 168 H Calcium 7.4 L Urine Color Urine Appearance Urine pH Ur Specific Willard Urine Protein Urine Glucose (UA) Urine Ketones Urine Blood Urine Nitrite Urine Bilirubin Urine Urobilinogen Ur Leukocyte Esterase Urine WBC (Auto) Urine RBC (Auto) U Hyaline Cast (Auto) U Epithel Cells (Auto) Urine Bacteria (Auto) Ur Renal Epithelial Cell Amorphous Sediment Urine Creatinine 2 Urine Opiates Screen Ur Opiates Confirm Ur Oxycodone Screen Ur Methadone, Qual Ur Methadone Urine Barbiturates Ur Barbiturate Confirm Ur Phencyclidine Scrn Ur Phencyclidine (PCP) Urine PCP Confirm Ur Amphetamines Screen U Amphetamines Confirm U Amphetamin/Meth Scrn MDMA (Ecstasy) Screen U Benzodiazepines Scrn U Benzodiazepine Confm Urine Cocaine Ur Cocaine Metabolite U Cocaine Metab Confirm U Marijuana (THC) Screen U Marijuana (THC) Confirm U THC/Creatinine Ratio Ur Drug Screen Comment 08/07/18 08/07/18 08/07/18 07:17 10:35 10:35 WBC RBC Hgb Hct MCV MCH MCHC RDW Std Deviation RDW Coeff of Kami Plt Count MPV Sodium Potassium Chloride Carbon Dioxide Anion Gap BUN Creatinine Est Cr Clr Drug Dosing Est GFR ( Amer) Est GFR (Non-Af Amer) BUN/Creatinine Ratio Glucose POC Glucose 140 H Calcium Urine Color Yellow Urine Appearance Clear Urine pH 5.5 Ur Specific Willard 1.014 Urine Protein 2+ H Urine Glucose (UA) Negative Urine Ketones Negative Urine Blood Negative Urine Nitrite Negative Urine Bilirubin Negative Urine Urobilinogen Negative Ur Leukocyte Esterase Negative Urine WBC (Auto) 1-5 Urine RBC (Auto) 0-4 U Hyaline Cast (Auto) 1-5 U Epithel Cells (Auto) >30 H Urine Bacteria (Auto) Negative Ur Renal Epithelial Cell Not Reportable Amorphous Sediment Present H Urine Creatinine 2 Urine Opiates Screen Neg Ur Opiates Confirm Ur Oxycodone Screen Ur Methadone, Qual Neg Ur Methadone Urine Barbiturates Neg Ur Barbiturate Confirm Ur Phencyclidine Scrn Ur Phencyclidine (PCP) Neg Urine PCP Confirm Ur Amphetamines Screen U Amphetamines Confirm U Amphetamin/Meth Scrn Neg MDMA (Ecstasy) Screen Neg U Benzodiazepines Scrn Pos H U Benzodiazepine Confm Urine Cocaine Ur Cocaine Metabolite Neg U Cocaine Metab Confirm U Marijuana (THC) Screen Neg U Marijuana (THC) Confirm U THC/Creatinine Ratio Ur Drug Screen Comment 08/07/18 08/07/18 08/07/18 10:35 10:52 11:24 WBC RBC Hgb Hct MCV MCH MCHC RDW Std Deviation RDW Coeff of Kami Plt Count MPV Sodium Potassium Chloride Carbon Dioxide Anion Gap BUN Creatinine Est Cr Clr Drug Dosing Est GFR ( Amer) Est GFR (Non-Af Amer) BUN/Creatinine Ratio Glucose POC Glucose 183 H 191 H Calcium Urine Color Urine Appearance Urine pH Ur Specific Willard Urine Protein Urine Glucose (UA) Urine Ketones Urine Blood Urine Nitrite Urine Bilirubin Urine Urobilinogen Ur Leukocyte Esterase Urine WBC (Auto) Urine RBC (Auto) U Hyaline Cast (Auto) U Epithel Cells (Auto) Urine Bacteria (Auto) Ur Renal Epithelial Cell Amorphous Sediment Urine Creatinine 2 Cancelled Urine Opiates Screen Cancelled Ur Opiates Confirm Cancelled Ur Oxycodone Screen Cancelled Ur Methadone, Qual Cancelled Ur Methadone Cancelled Urine Barbiturates Cancelled Ur Barbiturate Confirm Cancelled Ur Phencyclidine Scrn Cancelled Ur Phencyclidine (PCP) Urine PCP Confirm Cancelled Ur Amphetamines Screen Cancelled U Amphetamines Confirm Cancelled U Amphetamin/Meth Scrn MDMA (Ecstasy) Screen U Benzodiazepines Scrn Cancelled U Benzodiazepine Confm Cancelled Urine Cocaine Cancelled Ur Cocaine Metabolite U Cocaine Metab Confirm Cancelled U Marijuana (THC) Screen Cancelled U Marijuana (THC) Confirm Cancelled U THC/Creatinine Ratio Cancelled Ur Drug Screen Comment Cancelled 08/07/18 16:31 WBC RBC Hgb Hct MCV MCH MCHC RDW Std Deviation RDW Coeff of Kami Plt Count MPV Sodium Potassium Chloride Carbon Dioxide Anion Gap BUN Creatinine Est Cr Clr Drug Dosing Est GFR ( Amer) Est GFR (Non-Af Amer) BUN/Creatinine Ratio Glucose POC Glucose 169 H Calcium Urine Color Urine Appearance Urine pH Ur Specific Willard Urine Protein Urine Glucose (UA) Urine Ketones Urine Blood Urine Nitrite Urine Bilirubin Urine Urobilinogen Ur Leukocyte Esterase Urine WBC (Auto) Urine RBC (Auto) U Hyaline Cast (Auto) U Epithel Cells (Auto) Urine Bacteria (Auto) Ur Renal Epithelial Cell Amorphous Sediment Urine Creatinine 2 Urine Opiates Screen Ur Opiates Confirm Ur Oxycodone Screen Ur Methadone, Qual Ur Methadone Urine Barbiturates Ur Barbiturate Confirm Ur Phencyclidine Scrn Ur Phencyclidine (PCP) Urine PCP Confirm Ur Amphetamines Screen U Amphetamines Confirm U Amphetamin/Meth Scrn MDMA (Ecstasy) Screen U Benzodiazepines Scrn U Benzodiazepine Confm Urine Cocaine Ur Cocaine Metabolite U Cocaine Metab Confirm U Marijuana (THC) Screen U Marijuana (THC) Confirm U THC/Creatinine Ratio Ur Drug Screen Comment (1) Depression Active/Remission status: currently active Depression Type: major depressive disorder Major depression episode severity: moderate Major depression recurrence: unspecified whether recurrent Qualified Code(s): F32.1 - Major depressive disorder, single episode, moderate (2) Volume overload Hypervolemia type: unspecified Qualified Code(s): E87.70 - Fluid overload, unspecified
[2018-08-08 05:45] LABS: Hematocrit (blood only) 25.7 % (42-52); Hemoglobin 8.3 g/dL (14.0-18.0); Mean Corpuscular Hgb Conc 32.3 g/dL (32-36); Mean Corpuscular Volume 92.4 fL (80-100); Mean Platelet Volume 8.4 fL (7.4-10.4); Platelet Count 570 K/uL (130-400); RDW Coefficient of Variation 12.9 % (11.5-14.5); RDW Standard Deviation 43.9 fL (36.4-46.3); Red Blood Count 2.78 M/uL (4.7-6.1); White Blood Count 10.21 K/uL (4.8-10.8)
[2018-08-08 06:26] LABS: BUN Creatinine Ratio 19.8 (10-20); Calcium 7.5 mg/dl (8.5-10.1); Creatinine Clr Calc Pharmacy 16.2 ml/min; Est GFR (African American) 13.3; Est GFR (Non-African American) 11.5; Potassium 4.3 mmol/L (3.5-5.1)
[2018-08-08] MEDS: FUROSEMIDE 100 MG in DEXTROSE 5% 90 ML IV SCH ×3 (08:13→19:51)
[2018-08-08] MEDS: HEPARIN SOD 5,000 UNIT/0.5 ML VIAL SQ SCH ×2 (08:13→21:22)
[2018-08-08] MEDS: AMLODIPINE BESYLATE 5 MG TAB PO SCH (08:14)
[2018-08-08] MEDS: SERTRALINE HCL 50 MG TABLET PO SCH (08:14)
[2018-08-08] MEDS: INSULIN GLARGINE SOLOSTAR 100 UNITS/ML 3 ML PEN SC SCH (08:14)
[2018-08-08] MEDS: INSULIN ASPART 100 UNITS/ML 3 ML PEN SC SCH ×4 (08:15→21:24)
[2018-08-08] MEDS: ONDANSETRON INJ 2 MG/ML 2 ML VIAL IV PRN (11:11)
[2018-08-08] MEDS ORDERED: INSULIN GLARGINE SOLOSTAR 100 UNITS/ML 3 ML PEN SC ONE (11:30)
--- NOTE | 2018-08-08 12:02 | Nephrology Progress Note ---
Date of Service August 08, 2018 Assessment & Plan (1) KRYSTAL (acute kidney injury): rapidly progressive renal insufficiency. Cr uptrending to 5.4 today. w/ plm edema, pericardial effusion, HTN. Did not respond well to o IV bumex. Now responding to Lasix drip and was net -2.6 L. Electrolytes are stable. No indications for renal replacement therapy. -Continue Lasix drip at 15 mg/h -daily bmp -strict I/O -anemia may improve w/ diuresis; no indication for emergent transfusion (2) Pulmonary edema: Improving on diuresis. Monitor daily weight -limited sodium and started FR 1.5L -will reassess in am for need for further diuretics (3) Essential hypertension: His blood pressure is above target today. Anticipate improvement with diuresis. If systolic is consistently above 60, will add calcium channel bloc ker. Subjective Seen in f/u for KRYSTAL and volume overload. He feels better today. No SOB. Has leg swelling. urine output 4.3 L and net -2.6 L on Lasix drip. Review of Systems All systems reviewed & are unremarkable except as noted in HPI & below Physical Exam Vital Signs (Past 24 Hours): Last Vital Signs Temp 36.6 C 08/08/18 11:04 Pulse 85 08/08/18 11:04 Resp 19 08/08/18 11:04 BP 172/84 H 08/08/18 11:04 Pulse Ox 93 08/08/18 11:04 Physical Exam: General exam: Appears comfortable, no acute distress HEENT: Pupils are equal and reactive to light Neck: No JVD, neck is supple trachea is midline Respiratory system: Crackles bilaterally. Gastrointestinal: Abdomen is soft, non distended, non tender, bowel sounds are present CVS: Regular rate and rhythm. No murmurs, rubs or gallops Musculoskeletal: No joint or muscle tenderness Extremities: Non tender, 1+ edema, peripheral pulses are present Neuro: Oriented, no tremors, no focal neurological deficits Skin: No rashes Results & Data Laboratory Results Reviewed including creatinine of 5.4 and potassium of 4.3 (1) Pulmonary edema Chronicity: acute Qualified Code(s): J81.0 - Acute pulmonary edema
[2018-08-08] MEDS: METOCLOPRAMIDE HCL 10 MG TABLET PO SCH ×3 (14:00→21:26)
--- NOTE | 2018-08-08 17:13 | Hospitalist Progress Note ---
Date of Service August 08, 2018 Assessment & Plan (1) Acute encephalopathy: Resolved. Likely due to side effects from remeron. The remeron has been discontinued. (2) KRYSTAL (acute kidney injury): In setting of CKD stage 3. Creatinine continues to worsen in face of diuresis. Despite the worsening in the Creatinine his acid/base status is acceptable, potassium is normal, and volume status has significantly improved. Appreciate nephrology assistance. (3) Volume overload: This is likely due to his acute renal failure rather than diastolic CHF. Echo with preserved EF. Has had COPIOUS diuresis overnight with the lasix infusion. Already today he is net negative 4 liters. He is on 15mg/hour of lasix infusion. Consider decreasing to 10mg/hour given his very large diuresis already today. (4) Type 1 diabetes: Insulin pump on hold. Pharmacy consulted for glycemic management of basal-bolus SC regimen. Control adequate. Appreciate pharmacy assistance. (5) Diabetic gastroparesis: Nausea today likely due to gastroparesis. He usually takes reglan 10mg ac/hs at home. Will resume such. (6) Essential hypertension: uncontrolled in the face of his acute kidney injury. agree we may need to add another agent. would add low-dose beta deidre. (7) Depression: Numerous psychosocial stressors including separation from his , not seeing his 2 kids (only 1x/week), move to [place] from [place], etc. Remeron on hold due to sedation. Appreciate any psychiatry recommendations. Cont SSRI. Titrate the SSRI? (8) Anemia: Likely due to ACD from CKD. CBC acceptable today. (9) DVT prophylaxis: Heparin q12h. (10) Pericardial effusion: mild. seen by cardiology - Dr. Romero. I agree w/ him this is likely due to progressive renal disease. It is not causing any tamponade physiology. Monitor/follow. (11) Chronic kidney disease (CKD), stage III (moderate): baseline Cr 2 to 2.5. renal u/s w/o obstruction. (12) Urinary retention: patient had significant retention and did not have the sensation to void prior to parker insertion. if this was chronic there should have been hydronephrosis on renal u/s (ultrasound did not show any hydro). acute retention - cause? does he have neurogenic bladder from diabetic neuropathy? BPH? prostatitis? other? at some point needs DAVIS. parker now in place. (13) Hyponatremia: 2nd to acute renal failure. bmp in am. request PT, OT evals. Subjective patient feels better no orthopnea, PND, or PICHARDO today no chest pain he has had some nausea no change in mental status tele stable overnight with NSR Constitutional: + fatigue and + anorexia; no fever and no chills Respiratory: no cough and no dyspnea Cardiovascular: no chest pain Gastrointestinal: no abdominal pain and no vomiting Physical Exam Vital Signs (Past 24 Hours): Last Vital Signs Temp 36.7 C 08/08/18 15:43 Pulse 84 08/08/18 15:43 Resp 17 08/08/18 15:43 BP 151/81 H 08/08/18 15:43 Pulse Ox 90 08/08/18 15:43 Constitutional: well developed, well nourished and average body habitus; no acute distress and not lethargic flat affect ENMT: external ear and nose normal, oropharynx normal Respiratory: normal respiratory effort; no respiratory distress Auscultation: + diminished lung sounds (bases); no rales, no rhonchi and no wheezes Cardiovascular: Rate/Rhythm: regular rate and regular rhythm Heart Sounds: normal S1, normal S2 and + murmur (1/6 GOKUL) Vessels: posterior tibial pulses present and dorsalis pedis pulses present; no JVD Extremities: no edema Gastrointestinal (Abdomen): normal bowel sounds, soft, nontender, no hepatosplenomegaly less body wall edema Psychiatric: Orientation: alert and oriented x 3 Mood: + depressed mood Results & Data Laboratory Results Laboratory Results - last 24 hr 08/07/18 08/08/18 08/08/18 20:20 05:15 05:15 WBC 10.21 RBC 2.78 L Hgb 8.3 L Hct 25.7 L MCV 92.4 MCH 29.9 MCHC 32.3 RDW Std Deviation 43.9 RDW Coeff of Kami 12.9 Plt Count 570 H MPV 8.4 Sodium Potassium Chloride Carbon Dioxide Anion Gap BUN Creatinine Est Cr Clr Drug Dosing Est GFR ( Amer) Est GFR (Non-Af Amer) BUN/Creatinine Ratio Glucose POC Glucose 168 H Calcium Vitamin B12 412 08/08/18 08/08/18 08/08/18 05:15 07:08 10:59 WBC RBC Hgb Hct MCV MCH MCHC RDW Std Deviation RDW Coeff of Kami Plt Count MPV Sodium 133 L Potassium 4.3 Chloride 97 L Carbon Dioxide 27 Anion Gap 9.0 BUN 108 H Creatinine 5.44 H* Est Cr Clr Drug Dosing 16.2 Est GFR ( Amer) 13.3 Est GFR (Non-Af Amer) 11.5 BUN/Creatinine Ratio 19.8 Glucose 223 H POC Glucose 236 H 232 H Calcium 7.5 L Vitamin B12 08/08/18 16:18 WBC RBC Hgb Hct MCV MCH MCHC RDW Std Deviation RDW Coeff of Kami Plt Count MPV Sodium Potassium Chloride Carbon Dioxide Anion Gap BUN Creatinine Est Cr Clr Drug Dosing Est GFR ( Amer) Est GFR (Non-Af Amer) BUN/Creatinine Ratio Glucose POC Glucose 118 H Calcium Vitamin B12 (1) Volume overload Hypervolemia type: unspecified Qualified Code(s): E87.70 - Fluid overload, unspecified (2) Depression Active/Remission status: currently active Depression Type: major depressive disorder Major depression episode severity: moderate Major depression recurrence: unspecified whether recurrent Qualified Code(s): F32.1 - Major depressive disorder, single episode, moderate
[2018-08-09] MEDS: FUROSEMIDE 100 MG in DEXTROSE 5% 90 ML IV SCH (05:31)
[2018-08-09 05:44] LABS: Hematocrit (blood only) 25.5 % (42-52); Hemoglobin 8.3 g/dL (14.0-18.0); Mean Corpuscular Hgb Conc 32.5 g/dL (32-36); Mean Corpuscular Volume 90.7 fL (80-100); Mean Platelet Volume 8.4 fL (7.4-10.4); Platelet Count 555 K/uL (130-400); RDW Coefficient of Variation 12.7 % (11.5-14.5); RDW Standard Deviation 42.5 fL (36.4-46.3); Red Blood Count 2.81 M/uL (4.7-6.1); White Blood Count 10.83 K/uL (4.8-10.8)
[2018-08-09 06:25] LABS: BUN Creatinine Ratio 18.1 (10-20); Calcium 7.5 mg/dl (8.5-10.1); Est GFR (African American) 13.1; Est GFR (Non-African American) 11.3; Potassium 3.9 mmol/L (3.5-5.1)
[2018-08-09] MEDS: METOCLOPRAMIDE HCL 10 MG TABLET PO SCH ×4 (08:31→20:31)
[2018-08-09] MEDS: AMLODIPINE BESYLATE 5 MG TAB PO SCH (08:31)
[2018-08-09] MEDS: HEPARIN SOD 5,000 UNIT/0.5 ML VIAL SQ SCH ×2 (08:32→20:28)
[2018-08-09] MEDS: SERTRALINE HCL 50 MG TABLET PO SCH (08:32)
[2018-08-09] MEDS: INSULIN GLARGINE SOLOSTAR 100 UNITS/ML 3 ML PEN SC SCH (08:33)
[2018-08-09] MEDS: INSULIN ASPART 100 UNITS/ML 3 ML PEN SC SCH ×4 (08:35→20:29)
--- NOTE | 2018-08-09 10:42 | Medical Student Progress Note ---
Date of Service August 09, 2018 Assessment & Plan (1) Acute encephalopathy: Resolved. Believed to be secondary to remeron (2) KRYSTAL (acute kidney injury): In setting of CKD stage 3. Creatinine continues to worsen in light of diuresis, today's reading was 5.51, His BUN is 100, and BUN/Cr is 18.1. Also his pre-renal albumin is 2 with a daily protein excretion of 8g. Also his hct is 25.5% Considering Volume Depletion Secondary to Diabetic Nephropathy? Despite the worsening Creatinine levels, his acid/base status remains acceptable, potassium is normal, and volume status has significantly improved. Though this is true, I am concerned about aggressively diuresing him. His Cr clearance has been poor and rapidly attempting to remove the fluid while still having issues with urinary retention may result in increased renal stress, and considering him being Stage III CKD, this may increase strain on his kidneys to keep up with demand to filter with a poor GFR of 13.1. I am concerned that he may have a pre-renal azethemia and would consider using an JARRETT or ARB to control his BP and d/c diuretics. Appreciate nephrology's assistance. (3) Volume overload: This is likely due to his acute renal failure rather than diastolic CHF. Echo with preserved EF helps support this assessment. His SOB has been subjectively nonexistent, his lungs are clear to auscultation, minimal hypoacoustic percusssion and there is no trace edema in extremities. Has had copious diuresis overnight with the lasix infusion. Already today he is net negative 4 liters. His parker cath has about 400ml of urine, adequately assisting with draining bladder. He his extremities are non-edematous. He has been on 15mg/hour of lasix infusion. This seems aggressive. To preserve remaining kidney function, I suggest d/c lasix and monitor his Switch Operator levels to see how they respond. It isn't anticipated that he will return to his original baseline of 2-2.5, but if he is able to get down to 4, ideally 3.5, that would be a more stable level for management. Monitor CMP in the am. Hypervolemia type: unspecified Qualified Code(s): E87.70 - Fluid overload, unspecified (4) Type 1 diabetes: Had mildly elevated glucose levels this morning, off his Insulin pump. Pharmacy consulted for glycemic management of basal-bolus SC regimen. Control adequate. Appreciate pharmacy note (5) Diabetic gastroparesis: Had bowel mov't Nausea has been intermittent. He has not had much of an appetite either. May likely due to gastroparesis. Continue reglan 10mg ac/hs at home. (6) Essential hypertension: uncontrolled in light of his KRYSTAL. d/c Norvask I would consider introducing an JARRETT or ARB, that's renally protective to address his hypertensive state. However, I am concerned with how long it may take to have desired effects. If he remains hypertensive with such an elevated Switch Operator, that still places immense damage on his kidneys. Metoprolol is fast acting and can be favorable in decreasing his BP sooner. (7) Depression: Numerous psychosocial stressors including separation from his , not seeing his 2 kids (only 1x/week), move to [place] from [place], etc. Remeron on hold due to sedation. Appreciate any psychiatry recommendations. Cont SSRI. Active/Remission status: currently active Depression Type: major depressive disorder Major depression episode severity: moderate Major depression recurrence: unspecified whether recurrent Qualified Code(s): F32.1 - Major depressive disorder, single episode, moderate (8) Anemia: Likely due to ACD from CKD. CBC still in acceptable range. (9) DVT prophylaxis: Heparin q12h. (10) Pericardial effusion: mild- clinically improving. No SOB, PICHARDO, PND seen by cardiology - Dr. Romero. likely due to progressive renal disease. It is not causing any tamponade physiology, has renained in NSR Monitor/follow on telemetry (11) Chronic kidney disease (CKD), stage III (moderate): baseline Cr 2 to 2.5. Today's is 5.51 renal u/s w/o obstruction. Appreciate Nephrology's note- fistula and dialysis may be required depending on the progression of his course. (12) Urinary retention: patient had significant retention and did not have the sensation to void prior to parker insertion. ultrasound did not show any hydronephrosis acute retention- may have neurogenic bladder from diabetic neuropathy? BPH? prostatitis? at some point needs DAVIS. Improving with parker Keep parker Goal is to have him be able to urinate on his own consult urology if voiding issues persist or either progresses (13) Hyponatremia: 2nd to acute renal failure. Still remains hypernatremic, slightly improving. Repeat BMP in am. continue PT, OT Subjective Remained afebrile, had a hypertensive episode this morning (172/83) he was given Norvask and vitals were pending. He remained in NSR as per Telemetry Unit. Morning nurse reported that he felt nauseated after his PT session, but denied Zofran. Pt was recently awoken. He states that he was "feeling okay" and is no longer nauseous. He reports having one normal bowel movement this morning Denies any orthopnea, PND, or PICHARDO today Denies any chest pain, headaches, myalgia, lower back pain, calf pain Physical Exam Vital Signs (Past 24 Hours): Last Vital Signs Temp 36.8 C 08/09/18 07:35 Pulse 88 08/09/18 07:35 Resp 18 08/09/18 07:35 BP 172/83 H 08/09/18 07:35 Pulse Ox 91 08/09/18 07:35 Constitutional: WD/WN, vitals as above average body habitus Pt was supine initially and then sat uprightly for the remaining exam. ENMT: external ear and nose normal, oropharynx normal Mouth: + poor dentition Neck: trachea midline, no thyromegaly + facial hair Thyroid: normal thyroid Respiratory: normal respiratory effort, + dullness to percussion (left lower lobe) and able to speak in complete sentences Auscultation: lungs clear to auscultation bilaterally Cardiovascular: RRR, no murmur, no edema Heart Sounds: normal S1, normal S2 and normal, physiologic split S2 Palpation: normal PMI Vessels: dorsalis pedis pulses present, brachial pulses present and popliteal pulses present Extremities: normal capillary refill Chest (Breasts): normal inspection/palpation of breasts Chest: normal inspection of chest Gastrointestinal (Abdomen): normal bowel sounds, soft, nontender, no hepatosplenomegaly Musculoskeletal: no cyanosis or clubbing, extremities motor strength 5/5 Head/Neck/Chest: + head abnormal to inspection, normocephalic, head atraumatic, neck supple and + abnormal inspection of chest wall Extremities: extremities normal to inspection and strength 5/5 throughout Skin: no rashes, warm and dry Neurologic: patellar DTR's 2+ bilat, sensation intact CN's II-XI intact bilaterally and awake Cranial Nerves: PERRL, normal accommodation, EOM intact bilaterally, tongue midline, able to rotate head bilaterally, able to elevate shoulders bilaterally and no nystagmus Psychiatric: Affect: + constricted affect Thought Process: goal directed thought process and clear/coherent thought process Cognition: recent memory grossly intact and remote memory grossly intact Lymphatic: no cervical or axillary lymphadenopathy
[2018-08-09] MEDS: ONDANSETRON INJ 2 MG/ML 2 ML VIAL IV PRN (13:06)
[2018-08-09] MEDS: METOPROLOL TARTRATE 25 MG TAB PO SCH ×2 (15:27→20:28)
--- NOTE | 2018-08-09 15:42 | Nephrology Progress Note ---
Date of Service August 09, 2018 Assessment & Plan (1) KRYSTAL (acute kidney injury): Patient with rapidly progressive renal insufficiency. Cr uptrending to 5.5 today. w/ plm edema, pericardial effusion, HTN. Did not respond well to o IV bumex. Now responding to Lasix drip and was net -3 L. Electrolytes are stable. No indications for renal replacement therapy. I discussed with the patient and the mother that given fairly advanced and rapidly progressive CKD patient might need dialysis soon. Hopefully is not this admission. Is making a lot of urine which is a good sign. We briefly discussed different types of dialysis. Patient will continue to think about dialysis options. -We will discontinue Lasix drip. -daily bmp -strict I/O -He will likely start bolus Lasix tomorrow -We will assess daily for dialysis need Treatment plan discussed with primary team (2) Pulmonary edema: Improving on diuresis. Monitor daily weight -limited sodium and started FR 1.5L -will reassess in am for need for further diuretics (3) Essential hypertension: His blood pressure is above target today. Anticipate improvement with diuresis. If systolic is consistently above 60, will add calcium channel deidre. Subjective Seen in f/u for KRYSTAL and volume overload. He feels better today. No SOB. His leg swelling has subsided. urine output 4.3 L and net - 3 L on Lasix drip. Mother was at the bedside. All questions were answered. Physical Exam Vital Signs (Past 24 Hours): Last Vital Signs Temp 37.1 C 08/09/18 11:38 Pulse 81 08/09/18 15:09 Resp 18 08/09/18 11:38 BP 165/82 H 08/09/18 11:38 Pulse Ox 92 08/09/18 11:38 Physical Exam: General exam: Appears comfortable, no acute distress HEENT: Pupils are equal and reactive to light Neck: No JVD, neck is supple trachea is midline Respiratory system: Clear breath sounds bilaterally. Gastrointestinal: Abdomen is soft, non distended, non tender, bowel sounds are present CVS: Regular rate and rhythm. No murmurs, rubs or gallops Musculoskeletal: No joint or muscle tenderness Extremities: Non tender, no edema, peripheral pulses are present Neuro: Oriented, no tremors, no focal neurological deficits Skin: No rashes Results & Data Laboratory Results Hemoglobin 8.3, creatinine 5.5, BUN 100 (1) Pulmonary edema Chronicity: acute Qualified Code(s): J81.0 - Acute pulmonary edema
--- NOTE | 2018-08-09 19:48 | Hospitalist Progress Note ---
Date of Service August 09, 2018 Assessment & Plan (1) Volume overload: Marked improvement/resolved. 10kg weight loss since admisson. appears euvolemic today. STOP lasix infusion today. Repeat labs in am. Volume overload was likely due to his acute renal failure rather than diastolic CHF. Echo with preserved EF. Appreciate nephrology assistance. Present on Admission?: Yes (2) KRYSTAL (acute kidney injury): In setting of CKD stage 3. Creatinine has worsened in the face of diuresis but he has lost 10kg of weight with lasix infusion and feels markedly better. Some of the worsening creatinine is certainly to his copious diuresis on the lasix drip. Lasix drip to be stopped. I am hopeful that his creatinine will improve in the next few days off of the lasix infusion. Despite the worsening in the creatinine, his acid/base status is acceptable, potassium continues to be normal, he has no symptoms of uremia, and volume status is normal. Thus, emergent or urgent dialysis is not needed at this time. With that said he may need HD in the next few weeks/months if renal function continues to worsen as it has done in the last 1-2 months. Defer to nephrology when an AV fistula should be created. Appreciate nephrology assistance. Present on Admission?: Yes (3) Acute encephalopathy: Resolved. Was likely due to side effects from remeron. Remeron was d/c at admission. (4) Type 1 diabetes: Insulin pump on hold. Pharmacy continues to manage his basal-bolus SC regimen. Control adequate. Appreciate pharmacy assistance. (5) Diabetic gastroparesis: Cont reglan 10mg ac/hs as previous. Eating ok. (6) Essential hypertension: uncontrolled in the face of his acute kidney injury. cont norvasc. add metoprolol 25mg BID. follow. (7) Depression: Numerous psychosocial stressors including separation from his , not seeing his 2 kids (only 1x/week), move to [place] from [place], etc. Remeron on hold due to sedation. Appreciate any psychiatry recommendations. Cont SSRI. Titrate the SSRI? (8) Anemia: Likely due to ACD from CKD. CBC again acceptable today. (9) DVT prophylaxis: Heparin q12h. (10) Pericardial effusion: mild. seen by cardiology - Dr. Romero. I agree w/ him this is likely due to progressive renal disease. It is not causing any tamponade physiology. No Rx needed. Diurese. (11) Chronic kidney disease (CKD), stage III (moderate): baseline Cr 2 to 2.5. renal u/s w/o obstruction. has had progression of his diabetic nephropathy over the last 5-6 months. has significant proteinuria. appreciate nephrology assistance. followed by [facility]. (12) Urinary retention: patient had significant retention and did not have the sensation to void prior to parker insertion this admission. if this was chronic there should have been hydronephrosis on renal u/s (ultrasound did not show any hydro). acute retention - cause? does he have neurogenic bladder from diabetic neuropathy? BPH? prostatitis? other? at some point needs DAVIS. parker now in place. since lasix drip has been d/c and we will simply be monitoring him would d/c the parker and give him a spontaneous voiding trial. if he fails then simply reinsert parker. (13) Hyponatremia: 2nd to acute renal failure and diuretics. stable Na level. did well with PT/OT - no need for rehab. mother updated at bedside today. Subjective during the visit the [facility] heel layer was present as was his mother. he reports feeling much better - no cough, dyspnea, PICHARDO or orthopnea. tele with NSR overnight like previous he has had marked diuresis -- has lost 10kg of weight since admission. no recurrent sedation or mental status changes. Constitutional: no fever Respiratory: no dyspnea, no dyspnea on exertion and no wheezing Cardiovascular: no chest pain Gastrointestinal: + nausea (intermittent - improved from prior days); no abdominal pain Physical Exam Vital Signs (Past 24 Hours): Last Vital Signs Temp 36.9 C 08/09/18 18:45 Pulse 73 08/09/18 18:45 Resp 17 08/09/18 18:45 BP 150/77 H 08/09/18 18:45 Pulse Ox 92 08/09/18 18:45 Constitutional: well developed, well nourished and average body habitus; no acute distress and not lethargic ENMT: external ear and nose normal, oropharynx normal Respiratory: normal respiratory effort; no respiratory distress Auscultation: + diminished lung sounds (left base only); no rales, no rhonchi and no wheezes Cardiovascular: Rate/Rhythm: regular rate and regular rhythm Heart Sounds: normal S1, normal S2 and + murmur (1/6 GOKUL) Vessels: posterior tibial pulses present and dorsalis pedis pulses present; no JVD Extremities: no edema Gastrointestinal (Abdomen): normal bowel sounds, soft, nontender, no hepatosplenomegaly Psychiatric: Orientation: alert and oriented x 3 Mood: + depressed mood Results & Data Laboratory Results Laboratory Results - last 24 hr 08/08/18 08/09/18 08/09/18 20:11 05:18 05:18 WBC 10.83 H RBC 2.81 L Hgb 8.3 L Hct 25.5 L MCV 90.7 MCH 29.5 MCHC 32.5 RDW Std Deviation 42.5 RDW Coeff of Kami 12.7 Plt Count 555 H MPV 8.4 Sodium 134 L Potassium 3.9 Chloride 96 L Carbon Dioxide 28 Anion Gap 10.0 BUN 100 H Creatinine 5.51 H* Est Cr Clr Drug Dosing 16.0 Est GFR ( Amer) 13.1 Est GFR (Non-Af Amer) 11.3 BUN/Creatinine Ratio 18.1 Glucose 138 H POC Glucose 100 H Calcium 7.5 L 08/09/18 08/09/18 08/09/18 07:25 11:27 16:24 WBC RBC Hgb Hct MCV MCH MCHC RDW Std Deviation RDW Coeff of Kami Plt Count MPV Sodium Potassium Chloride Carbon Dioxide Anion Gap BUN Creatinine Est Cr Clr Drug Dosing Est GFR ( Amer) Est GFR (Non-Af Amer) BUN/Creatinine Ratio Glucose POC Glucose 192 H 287 H 157 H Calcium (1) Depression Active/Remission status: currently active Depression Type: major depressive disorder Major depression episode severity: moderate Major depression recurrence: unspecified whether recurrent Qualified Code(s): F32.1 - Major depressive disorder, single episode, moderate (2) Volume overload Hypervolemia type: unspecified Qualified Code(s): E87.70 - Fluid overload, unspecified
[2018-08-10 05:33] LABS: Hemoglobin 8.7 g/dL (14.0-18.0); Mean Corpuscular Hgb Conc 33.5 g/dL (32-36); Mean Corpuscular Volume 90.6 fL (80-100); Mean Platelet Volume 8.4 fL (7.4-10.4); Platelet Count 579 K/uL (130-400); RDW Coefficient of Variation 12.8 % (11.5-14.5); RDW Standard Deviation 42.1 fL (36.4-46.3); Red Blood Count 2.87 M/uL (4.7-6.1); White Blood Count 12.61 K/uL (4.8-10.8)
[2018-08-10 06:18] LABS: BUN Creatinine Ratio 17.1 (10-20); Calcium 7.5 mg/dl (8.5-10.1); Creatinine Clr Calc Pharmacy 15.7 ml/min; Est GFR (African American) 12.8; Magnesium 2.2 mg/dl (1.8-2.4); Potassium 3.9 mmol/L (3.5-5.1)
[2018-08-10] MEDS: ONDANSETRON INJ 2 MG/ML 2 ML VIAL IV PRN (08:19)
[2018-08-10] MEDS: INSULIN ASPART 100 UNITS/ML 3 ML PEN SC SCH ×4 (08:23→22:00)
[2018-08-10] MEDS: METOPROLOL TARTRATE 25 MG TAB PO SCH ×2 (08:24→22:04)
[2018-08-10] MEDS: INSULIN GLARGINE SOLOSTAR 100 UNITS/ML 3 ML PEN SC SCH (08:24)
[2018-08-10] MEDS: SERTRALINE HCL 50 MG TABLET PO SCH (08:24)
[2018-08-10] MEDS: METOCLOPRAMIDE HCL 10 MG TABLET PO SCH ×4 (08:24→22:04)
[2018-08-10] MEDS: HEPARIN SOD 5,000 UNIT/0.5 ML VIAL SQ SCH ×2 (08:25→22:02)
[2018-08-10] MEDS: AMLODIPINE BESYLATE 5 MG TAB PO SCH (08:26)
--- NOTE | 2018-08-10 14:31 | Pharmacy Report ---
Pharmacy Glycemic Short Note 2 - Date of Service August 10, 2018 - Glycemic Short BSG Results (Last 24 hours): 08/09/18 08/09/18 08/10/18 16:24 20:20 05:09 Glucose 103 H POC Glucose 157 H 122 H 08/10/18 08/10/18 07:19 11:21 Glucose POC Glucose 228 H 246 H OUTPATIENT ANTIDIABETIC REGIMEN: Humalog pump * A1c = 8.4 % 06/03/18 ASSESSMENT: 08/10/18 * Will add a small HS lantus dose tonight: over the preceding 48hrs his FBS and lunch BSG have all been elevated. dinner BSGs and HS BSGs all euglycemic. 08/07/18 * Hypoglycemia resolved * Fasting BSG is at goal. I will order a one time dose of 15 units of Lantus for today then per scale. During previous admissions he has required Lantus 10-18 units per day. Continue current Novolog coverage 08/06/18 * Mr. De Los Santos is a 47yo M p/w acute encephalopathy. He had some concerning lows in the ER; humalog pump was removed a few hours ago, necessitating metabolic insulin sanjana. He is known to the pharmacy glycemic service from previous admissions. PMHx: consistent with DM-I, CKD-III, HTN, GERD, gastroparesis. * If he starts having lows post-prandially, consider novolog---> SQ regular insulin to help mimic his impaired carb absorption. PLAN FOR INPATIENT GLYCEMIC CONTROL: * Basal insulin QAM * 12 units for BSG less than 120 * 15 units for BSG 120 or greater HS x1 * 3 units, historically he is prone to extreme AM lows with doses >5units at HS * Bolus insulin * NovoLog per scale ACHS or Q6hrs while NPO * Goal Range: Low 120 mg/dL - High 160 mg/dL * Correction Factor: 30 mg/dL/unit * Nutritional / Prandial insulin per carb ratio of 1 unit per 10 grams CHO consumed
--- NOTE | 2018-08-10 17:16 | Nephrology Progress Note ---
Date of Service August 10, 2018 Assessment & Plan (1) KRYSTAL (acute kidney injury): Patient with rapidly progressive renal insufficiency. Cr uptrending to 5.6 today. Responded well to Lasix drip. Volume status is now euvolemic. Electrolytes are stable. No indications for renal replacement therapy. I discussed with the patient and the mother that given fairly advanced and rapidly progressive CKD patient might need dialysis soon. Hopefully is not this admission. Is making a lot of urine which is a good sign. -daily bmp -strict I/O -He will likely start bolus Lasix tomorrow, depending on urine output and labs -We will assess daily for dialysis need (2) Pulmonary edema: Improving, still good diuresis even of Lasix. Monitor daily weight -limited sodium and started FR 1.5L -will reassess in am for need for further diuretics (3) Essential hypertension: His blood pressure is above target today. I have started hydralazine 25 mg twice daily. Subjective Seen in f/u for KRYSTAL and volume overload. He feels better today. No SOB. His leg swelling has subsided. urine output 3 L and net - 2 L off Lasix. Is complaining of nausea but no vomiting. Review of Systems All systems reviewed & are unremarkable except as noted in HPI & below Physical Exam Vital Signs (Past 24 Hours): Last Vital Signs Temp 36.6 C 08/10/18 14:54 Pulse 74 08/10/18 14:54 Resp 18 08/10/18 14:54 BP 160/78 H 08/10/18 14:54 Pulse Ox 91 08/10/18 14:54 Physical Exam: General exam: Appears comfortable, no acute distress HEENT: Pupils are equal and reactive to light Neck: No JVD, neck is supple trachea is midline Respiratory system: Clear breath sounds bilaterally. Gastrointestinal: Abdomen is soft, non distended, non tender, bowel sounds are present CVS: Regular rate and rhythm. No murmurs, rubs or gallops Musculoskeletal: No joint or muscle tenderness Extremities: Non tender, no edema, peripheral pulses are present Neuro: Oriented, no tremors, no focal neurological deficits Skin: No rashes Results & Data Laboratory Results Creatinine of 5.6, potassium 3.9, BUN of 95 (1) Pulmonary edema Chronicity: acute Qualified Code(s): J81.0 - Acute pulmonary edema
[2018-08-10] MEDS ORDERED: INSULIN GLARGINE SOLOSTAR 100 UNITS/ML 3 ML PEN SC ONE (21:00)
--- NOTE | 2018-08-11 07:32 | Hospitalist Progress Note ---
Date of Service August 10, 2018 Assessment & Plan (1) Volume overload: Marked improvement/resolved. 11.1kg weight loss since admisson. appears euvolemic today. Have since stopped the Lasix drip Creatinine stable Volume overload was likely due to his acute renal failure rather than diastolic CHF. Echo with preserved EF. Will possibly start Lasix IV boluses tomorrow as per nephrology Appreciate nephrology assistance. (2) KRYSTAL (acute kidney injury): In setting of CKD stage 3. Creatinine has worsened in the face of diuresis but he has lost 11kg of weight with lasix infusion and feels markedly better. Some of the worsening creatinine is certainly to his copious diuresis on the lasix drip. Lasix drip has since been stopped as above and likely starting Lasix bolus dosing tomorrow. I am hopeful that his creatinine will improve in the next few days off of the lasix infusion. Despite the worsening in the creatinine, his acid/base status is acceptable, potassium continues to be normal, he has no symptoms of uremia except some mild nausea, and volume status is normal. Thus, emergent or urgent dialysis is not needed at this time. With that said he may need HD in the next few weeks/months if renal function continues to worsen as it has done in the last 1-2 months. Defer to nephrology when an AV fistula should be created. Appreciate nephrology assistance. (3) Acute encephalopathy: Resolved. Was likely due to side effects from remeron. Remeron was d/c at admission. (4) Type 1 diabetes: Insulin pump on hold. Pharmacy continues to manage his basal-bolus SC regimen. Control adequate. Appreciate pharmacy assistance. (5) Diabetic gastroparesis: Cont reglan 10mg ac/hs as previous. Eating ok. (6) Essential hypertension: uncontrolled in the face of his acute kidney injury. cont norvasc 10 mg daily -Added metoprolol 25mg BID. -Nephrology added hydralazine 25 mg p.o. twice daily today follow. (7) Depression: Numerous psychosocial stressors including separation from his , not seeing his 2 kids (only 1x/week), move to [address] from [place], etc. Remeron on hold due to sedation. Appreciate any psychiatry recommendations. Cont SSRI. Titrate the SSRI? (8) Anemia: Likely due to ACD from CKD. CBC again acceptable today with hemoglobin stable at 8.7 With thrombocytosis-likely reactive secondary to acute stress. (9) Pericardial effusion: mild. seen by cardiology - Dr. Romero. I agree w/ him this is likely due to progressive renal disease. It is not causing any tamponade physiology. No Rx needed. Diurese. (10) Chronic kidney disease (CKD), stage III (moderate): baseline Cr 2 to 2.5. renal u/s w/o obstruction. has had progression of his diabetic nephropathy over the last 5-6 months. has significant proteinuria. appreciate nephrology assistance. followed by [facility]. (11) Urinary retention: patient had significant retention and did not have the sensation to void prior to parker insertion this admission. if this was chronic there should have been hydronephrosis on renal u/s (ultrasound did not show any hydro). acute retention - cause? does he have neurogenic bladder from diabetic neuropathy? BPH? prostatitis? other? at some point needs DAVIS. parker now in place. since lasix drip has been d/c and we will simply be monitoring him would d/c the parker and give him a spontaneous voiding trial. if he fails then simply reinsert parker. (12) Hyponatremia: 2nd to acute renal failure and diuretics. stable Na level at 134. did well with PT/OT - no need for rehab. (13) DVT prophylaxis: Heparin q12h. Disposition-remain on telemetry Subjective Patient had some nausea today. Denies shortness of breath or chest pain. Otherwise feels well. Has been ambulating around the room but not in the halls. Review of Systems All systems reviewed & are unremarkable except as noted in HPI & below Physical Exam Vital Signs (Past 24 Hours): Last Vital Signs Temp 36.7 C 08/11/18 07:07 Pulse 79 08/11/18 07:07 Resp 16 08/11/18 07:07 BP 169/80 H 08/11/18 07:07 Pulse Ox 92 08/11/18 07:07 Constitutional: + ill appearing (Appears older than given age); no acute distress Eyes: PERRL, conjunctivae normal, anicteric sclerae ENMT: external ear and nose normal, oropharynx normal Neck: trachea midline, no thyromegaly Respiratory: normal respiratory effort, lungs clear to auscultation Cardiovascular: RRR, no murmur, no edema Gastrointestinal (Abdomen): normal bowel sounds, soft, nontender, no hepatosplenomegaly Musculoskeletal: Extremities: extremities normal to inspection; no cyanosis and no clubbing Skin: no rashes, warm and dry (With nails bitten down with dried blood) Neurologic: moves all extremities and awake; no focal motor deficits Psychiatric: A+Ox3, euthymic affect Genitourinary: Parker catheter in place Results & Data Laboratory Results 08/10/18 08/10/18 08/10/18 Range/Units 20:44 16:15 11:21 POC Glucose 155 H 164 H 246 H (70-99) 08/10/18 Range/Units 07:19 POC Glucose 228 H (70-99) Creatinine 5.63 Other electrolytes okay WBC 12, hemoglobin 8.7, platelets 579 Urine culture negative ECG Additional Comments: Telemetry with normal sinus rhythm with rates in the 70s (1) Volume overload Hypervolemia type: unspecified Qualified Code(s): E87.70 - Fluid overload, unspecified (2) Depression Active/Remission status: currently active Depression Type: major depressive disorder Major depression episode severity: moderate Major depression recurrence: unspecified whether recurrent Qualified Code(s): F32.1 - Major depressive disorder, single episode, moderate
[2018-08-11 07:56] LABS: Basophils # (auto) 0.05 K/uL (0-0.2); Basophils % (auto) 0.4 %; Eosinophils # (auto) 0.25 K/uL (0-0.5); Hematocrit (blood only) 27.2 % (42-52); Immature Granulocytes # (auto) 0.15 K/uL (0.00-0.02); Immature Granulocytes % (auto) 1.2 %; Lymphocytes # (auto) 1.79 K/uL (1.2-3.4); Lymphocytes % (auto) 14.6 %; Mean Corpuscular Hgb Conc 33.1 g/dL (32-36); Mean Corpuscular Volume 90.7 fL (80-100); Mean Platelet Volume 8.4 fL (7.4-10.4); Monocytes # (auto) 1.31 K/uL (0.11-0.59); Monocytes % (auto) 10.7 %; Neutrophils # (auto) 8.73 K/uL (1.4-6.5); Neutrophils % (auto) 71.1 %; Platelet Count 580 K/uL (130-400); RDW Coefficient of Variation 12.9 % (11.5-14.5); RDW Standard Deviation 42.3 fL (36.4-46.3); White Blood Count 12.28 K/uL (4.8-10.8)
[2018-08-11] MEDS: INSULIN ASPART 100 UNITS/ML 3 ML PEN SC SCH ×4 (08:16→21:16)
[2018-08-11] MEDS: METOCLOPRAMIDE HCL 10 MG TABLET PO SCH ×4 (08:18→21:07)
[2018-08-11] MEDS: HEPARIN SOD 5,000 UNIT/0.5 ML VIAL SQ SCH ×2 (08:19→21:07)
[2018-08-11] MEDS: INSULIN GLARGINE SOLOSTAR 100 UNITS/ML 3 ML PEN SC SCH ×3 (08:20→21:11)
[2018-08-11] MEDS: AMLODIPINE BESYLATE 5 MG TAB PO SCH (08:22)
[2018-08-11] MEDS: METOPROLOL TARTRATE 25 MG TAB PO SCH ×2 (08:22→21:07)
[2018-08-11] MEDS: SERTRALINE HCL 50 MG TABLET PO SCH (08:23)
[2018-08-11 08:36] LABS: BUN Creatinine Ratio 17.2 (10-20); Creatinine Clr Calc Pharmacy 15.8 ml/min; Est GFR (African American) 13.1; Est GFR (Non-African American) 11.3; Potassium 3.9 mmol/L (3.5-5.1)
--- NOTE | 2018-08-11 10:54 | Medical Student Progress Note ---
Date of Service August 11, 2018 Assessment & Plan (1) Volume overload: Marked improvement/resolved. 12.2kg weight loss since admission. appears euvolemic today. Has improved since stopped the Lasix drip Creatinine stabilizing, it decreased to 5.53 Volume overload was likely due to his acute renal failure rather than diastolic CHF. Echo with preserved EF. His electrolytes appear stable. Consult Nephrology regarding indications for renal replacement therapy. Even with diuretics discontinued, he continues to make urine. Therefore, I suggest not restarting Lasix today, but depending on the progress of his quantity of urine output, potentially restart diuretic? Consult Nephrology as well. Continue daily BMP & Follow I/OS Dialysis need? Appreciate nephrology assistance and refer for areas of questioning. Hypervolemia type: unspecified Qualified Code(s): E87.70 - Fluid overload, unspecified (2) KRYSTAL (acute kidney injury): In setting of CKD stage 3. Creatinine originally worsened in light of copious diuresis, however he has lost 11kg of weight with lasix drip and feels markedly better. Lasix drip has since been stopped as abover, no bolus was given today. Cr level clinically improving off Lasix, but minimal improvement. Despite state of creatinine, his acid/base status is acceptable, potassium continues to be normal, he has no symptoms of uremia except some mild nausea, and volume status is normal- No emergent/urgent dialysis is needed at this time. Hemodialysis may be required within the next few weeks/months, depending on renal function. AV fistula? Appreciate Nephrology Assistance in management. (3) Acute encephalopathy: Resolved. Was likely due to side effects from remeron. Remeron was d/c at admission. (4) Type 1 diabetes: Insulin pump on hold. Pharmacy continues to manage his basal-bolus SC regimen. Control adequate. Appreciate pharmacy assistance. (5) Diabetic gastroparesis: Cont reglan 10mg ac/hs as previous. Eating ok. (6) Essential hypertension: uncontrolled in the face of his acute kidney injury. cont norvasc 10 mg daily cont metoprolol 25mg BID. Nephrology added hydralazine 25 mg p.o. twice daily yesterday follow. (7) Depression: Numerous psychosocial stressors including separation from his , not seeing his 2 kids (only 1x/week), move to [place] from [place], etc. Remeron on hold due to sedation. Appreciate any psychiatry recommendations. Cont SSRI. Titrate the SSRI? Active/Remission status: currently active Depression Type: major depressive disorder Major depression episode severity: moderate Major depression recurrence: unspecified whether recurrent Qualified Code(s): F32.1 - Major depressive disorder, single episode, moderate (8) Anemia: Likely due to ACD from CKD. CBC again acceptable today with hemoglobin stable at 8.7 (9) Pericardial effusion: mild. seen by cardiology - Dr. Romero. I agree w/ him this is likely due to progressive renal disease. It is not causing any tamponade physiology. No Rx needed. Diurese. (10) Chronic kidney disease (CKD), stage III (moderate): baseline Cr 2 to 2.5. renal u/s w/o obstruction. has had progression of his diabetic nephropathy over the last 5-6 months. has significant proteinuria. appreciate nephrology assistance. followed by [facility]. (11) Urinary retention: patient had significant retention and did not have the sensation to void prior to parker insertion this admission. if this was chronic there should have been hydronephrosis on renal u/s (ultrasound did not show any hydro). acute retention - cause? does he have neurogenic bladder from diabetic neuropathy? BPH? prostatitis? other? at some point needs DAVIS. parker was in place, I would remove it to see if he is capable of voiding on his own (12) Hyponatremia: 2nd to acute renal failure and diuretics. stable Na level at 134. did well with PT/OT - no need for rehab. (13) DVT prophylaxis: Heparin q12h. Disposition-remain on telemetry (14) Leukocytosis: WBC count remains at 12 He has a history of frequent leukocytosis, neutrophilia and monocytosis present which is nonspecific Also with thrombocytosis (pancytopenia?)- Secondary to inflammation? daily CBC (15) Thrombocytosis: Platelets in the 500s, as above Subjective No N/V Denies shortness of breath or chest pain. No orthopnea. Appetite is restored, ate all of his breakfast. Normal Bowel Movement Mood is 8/10 Has been ambulating around the room but not in the halls. Wondering about necessity of parker Remained afebrile Normal Sinus Rhythm per tele Physical Exam Vital Signs (Past 24 Hours): Last Vital Signs Temp 36.7 C 03/06/19 07:07 Pulse 75 08/11/18 08:00 Resp 16 08/11/18 07:07 BP 169/80 H 08/11/18 07:07 Pulse Ox 92 08/11/18 07:07 Constitutional: WD/WN, vitals as above average body habitus ENMT: external ear and nose normal, oropharynx normal Mouth: + dry oral mucous membranes and + poor dentition Neck: trachea midline, no thyromegaly + facial hair Thyroid: normal thyroid Respiratory: normal respiratory effort, lungs clear to auscultation normal respiratory effort, + dullness to percussion (left lower lobe) and able to speak in complete sentences Auscultation: lungs clear to auscultation bilaterally Cardiovascular: RRR, no murmur, no edema Heart Sounds: normal S1, normal S2 and normal, physiologic split S2 Palpation: normal PMI Vessels: dorsalis pedis pulses present, brachial pulses present and popliteal pulses present E xtremities: normal capillary refill Chest (Breasts): normal inspection/palpation of breasts Chest: normal inspection of chest Gastrointestinal (Abdomen): normal bowel sounds, soft, nontender, no hepatosplenomegaly Musculoskeletal: no cyanosis or clubbing, extremities motor strength 5/5 Head/Neck/Chest: + head abnormal to inspection, normocephalic, head atraumatic and neck supple; normal inspection of chest wall Extremities: extremities normal to inspection and strength 5/5 throughout Skin: no rashes, warm and dry + nail abnormality (dry blood at fingernails where he bit them) Neurologic: patellar DTR's 2+ bilat, sensation intact CN's II-XI intact bilaterally and awake Cranial Nerves: PERRL, normal accommodation, EOM intact bilaterally, tongue midline, able to rotate head bilaterally, able to elevate shoulders bilaterally and no nystagmus Psychiatric: Affect: + constricted affect Thought Process: goal directed thought process and clear/coherent thought process Cognition: recent memory grossly intact and remote memory grossly intact Lymphatic: no cervical or axillary lymphadenopathy Results & Data Labs Labs: Short CBC 08/11/18 Range/Units 07:40 WBC 12.28 H (4.8-10.8) K/uL Hgb 9.0 L (14.0-18.0) g/dL Hct 27.2 L (42-52) % Plt Count 580 H (130-400) K/uL BMP 08/11/18 07:40 Sodium 134 L Potassium 3.9 Chloride 96 L Carbon Dioxide 27 BUN 94 H Creatinine 5.53 H* Glucose 172 H Calcium 8.0 L Urine 08/11/18 Range/Units 21:00 Urine Color Yellow Urine Appearance Clear (Clear) Urine pH 5.5 (4.5-7.5) Ur Specific [place] 1.017 (1.000-1.030) Urine Protein 3+ H (Negative) Urine Glucose (UA) Trace H (Negative)
[2018-08-11 12:22] LABS: 7-Aminoclonaz, Confirm NEGATIVE NG/ML (CUTOFF=25); Hydro-Alp Ur, GC/MS NEGATIVE NG/ML (CUTOFF=25); Hydroxyethylflurazepam, Conf NEGATIVE NG/ML (CUTOFF=50); Hydroxytriazolam NEGATIVE NG/ML (CUTOFF=50); Lorazepam, Ur GC/MS NEGATIVE NG/ML (CUTOFF=50); Nordiazepam, Confirm 96 NG/ML (CUTOFF=50); Oxazepam Ur, GC/MS 475 NG/ML (CUTOFF=50); Temazepam, Confirm 276 NG/ML (CUTOFF=50)
--- NOTE | 2018-08-11 13:41 | Nephrology Progress Note ---
Date of Service August 11, 2018 Assessment & Plan (1) KRYSTAL (acute kidney injury): Patient with rapidly progressive renal insufficiency. Cr uptrending to 5.6 today. Responded well to Lasix drip. Volume status is now euvolemic. Electrolytes are stable. No indications for renal replacement therapy. He continues to make urine even without diuretics. Creatinine has stagnated at 5.5. Will hold off Lasix today. -daily bmp -strict I/O -He will likely start bolus Lasix tomorrow, depending on urine output and labs -We will assess daily for dialysis need (2) Pulmonary edema: Improving, still good diuresis even of Lasix. Monitor daily weight -limited sodium and started FR 1.5L -will reassess in am for need for further diuretics (3) Essential hypertension: His blood pressure is above target today. Increased hydralazine 25 mg 3 times daily. Subjective Seen in f/u for KRYSTAL and volume overload. He feels better today. No SOB. His leg swelling has subsided. urine output 2 L and net - 0.4L off Lasix. No nausea or vomiting. He is lying in bed. Review of Systems All systems reviewed & are unremarkable except as noted in HPI & below Physical Exam Vital Signs (Past 24 Hours): Last Vital Signs Temp 36.4 C L 08/11/18 11:29 Pulse 72 08/11/18 11:29 Resp 18 08/11/18 11:29 BP 164/80 H 08/11/18 11:29 Pulse Ox 95 08/11/18 11:29 Physical Exam: General exam: Appears comfortable, no acute distress HEENT: Pupils are equal and reactive to light Neck: No JVD, neck is supple trachea is midline Respiratory system: Clear breath sounds bilaterally. Gastrointestinal: Abdomen is soft, non distended, non tender, bowel sounds are present CVS: Regular rate and rhythm. No murmurs, rubs or gallops Musculoskeletal: No joint or muscle tenderness Extremities: Non tender, no edema, peripheral pulses are present Neuro: Oriented, no tremors, no focal neurological deficits Skin: No rashes Results & Data Laboratory Results Creatinine 5.5, BUN of 94, potassium 3.9 (1) Pulmonary edema Chronicity: acute Qualified Code(s): J81.0 - Acute pulmonary edema
--- NOTE | 2018-08-11 13:56 | Pharmacy Report ---
Pharmacy Glycemic Short Note 2 - Date of Service August 11, 2018 - Glycemic Short BSG Results (Last 24 hours): 08/10/18 08/10/18 08/11/18 16:15 20:44 07:35 Glucose POC Glucose 164 H 155 H 182 H 08/11/18 08/11/18 07:40 11:19 Glucose 172 H POC Glucose 222 H OUTPATIENT ANTIDIABETIC REGIMEN: Humalog pump * A1c = 8.4 % 06/03/18 ASSESSMENT: 08/11/18 * 3 units of HS lantus have improved FBS and lunch BSGs. Will increase Mr. De Los Santos's HS lantus from 3---> 4 units. I am cautious in titrating his HS dose due to the labile nature of his DM-I and his propensity of fasting lows. 08/10/18 * Will add a small HS lantus dose tonight: over the preceding 48hrs his FBS and lunch BSG have all been elevated. dinner BSGs and HS BSGs all euglycemic. 08/07/18 * Hypoglycemia resolved * Fasting BSG is at goal. I will order a one time dose of 15 units of Lantus for today then per scale. During previous admissions he has required Lantus 10-18 units per day. Continue current Novolog coverage 08/06/18 * Mr. De Los Santos is a 47yo M p/w acute encephalopathy. He had some concerning lows in the ER; humalog pump was removed a few hours ago, necessitating metabolic insulin sanjana. He is known to the pharmacy glycemic service from previous admissions. PMHx: consistent with DM-I, CKD-III, HTN, GERD, gastroparesis. * If he starts having lows post-prandially, consider novolog---> SQ regular insulin to help mimic his impaired carb absorption. PLAN FOR INPATIENT GLYCEMIC CONTROL: * Basal insulin QAM * 12 units for BSG less than 120 * 15 units for BSG 120 or greater HS x1 * 4 units, historically he is prone to extreme AM lows with doses >5units at HS * Bolus insulin * NovoLog per scale ACHS or Q6hrs while NPO * Goal Range: Low 120 mg/dL - High 160 mg/dL * Correction Factor: 30 mg/dL/unit * Nutritional / Prandial insulin per carb ratio of 1 unit per 10 grams CHO consumed
[2018-08-11] MEDS: ONDANSETRON INJ 2 MG/ML 2 ML VIAL IV PRN (15:13)
--- NOTE | 2018-08-11 17:56 | Hospitalist Progress Note ---
Date of Service August 11, 2018 Assessment & Plan (1) Volume overload: Marked improvement/resolved. Has now had a 12.2 kg weight loss since admisson with being on a Lasix drip. Continues to appear euvolemic Have since stopped the Lasix drip Creatinine stable to slightly improved today Volume overload was likely due to his acute renal failure rather than diastolic CHF. Echo with preserved EF. Will possibly start Lasix IV boluses tomorrow as per nephrology Appreciate nephrology assistance. (2) KRYSTAL (acute kidney injury): In setting of CKD stage 3. Creatinine has worsened in the face of diuresis but he has lost 12.2 kg of weight with lasix infusion and feels markedly better. Some of the worsening creatinine is certainly to his copious diuresis on the lasix drip. Lasix drip has since been stopped as above and likely starting Lasix bolus d osing tomorrow. I am hopeful that his creatinine will improve in the next few days off of the lasix infusion. Creatinine is improved today down to 5.53 Despite the worsening in the creatinine, his acid/base status is acceptable, potassium continues to be normal, he has no symptoms of uremia except some mild nausea, and volume status is normal. Thus, emergent or urgent dialysis is not needed at this time. With that said he may need HD in the next few weeks/months if renal function continues to worsen as it has done in the last 1-2 months. Defer to nephrology when an AV fistula should be created. Appreciate nephrology assistance. (3) Acute encephalopathy: Resolved. Was likely due to side effects from remeron. Remeron was d/c at admission. (4) Type 1 diabetes: Insulin pump on hold. Hemoglobin A1c 8.4% in 05/2018 Pharmacy continues to manage his basal-bolus SC regimen. Appreciate pharmacy assistance. With some hyperglycemia-now increasing Lantus to 15 units in the morning and 4 units at nighttime -Continue NovoLog with meals and at bedtime (5) Diabetic gastroparesis: Cont reglan 10mg ac/hs as previous. Eating ok. (6) Essential hypertension: uncontrolled in the face of his acute kidney injury. cont norvasc 10 mg daily -Added metoprolol 25mg BID. -Nephrology added hydralazine and increase the dose today to 25 mg p.o. 3 times daily follow. (7) Depression: Numerous psychosocial stressors including separation from his , not seeing his 2 kids (only 1x/week), move to [place] from [place], etc. Remeron on hold due to sedation. Appreciate any psychiatry recommendations. Cont Zoloft 50 mill grams daily Titrate the SSRI? (8) Anemia: Likely due to ACD from CKD. CBC again acceptable today with hemoglobin stable at 9.0 (9) Pericardial effusion: mild. seen by cardiology - Dr. Romero. I agree w/ him this is likely due to progressive renal disease. It is not causing any tamponade physiology. No Rx needed. Diurese. (10) Chronic kidney disease (CKD), stage III (moderate): baseline Cr 2 to 2.5. renal u/s w/o obstruction. has had progression of his diabetic nephropathy over the last 5-6 months. has significant proteinuria. appreciate nephrology assistance. followed by [facility]. (11) Urinary retention: -Had significant retention and did not have the sensation to void prior to parker insertion this admission. if this was chronic there should have been hydronephrosis on renal u/s (ultrasound did not show any hydro). acute retention -unclear cause-could have neurogenic bladder from diabetic neuropathy Less likely that he has BPH given his young age but is possible Urinalysis not indicative of infection but could have prostatitis regardless -Consider voiding trial, but will consult urology for further evaluation (12) Hyponatremia: 2nd to acute renal failure and diuretics. stable Na level at 134. -Follow BMP in the morning (13) Leukocytosis: WBC count remains at 12-historically he frequently has a leukocytosis, neutrophilia and monocytosis present which is nonspecific Also with thrombocytosis Most likely secondary to inflammation from stress and inflammation -Follow CBC (14) Thrombocytosis: Platelets in the 500s, as above (15) DVT prophylaxis: Heparin q12h. Disposition-remain on telemetry Subjective Patient denies any complaints. He denies nausea or abdominal pain today. He is feeling well. Denies chest pain or shortness of breath. No headache or lightheadedness. Denies sore throat or cough. He is eating today. Review of Systems All systems reviewed & are unremarkable except as noted in HPI & below Physical Exam Vital Signs (Past 24 Hours): Last Vital Signs Temp 36.8 C 08/11/18 15:02 Pulse 73 08/11/18 15:02 Resp 18 08/11/18 15:02 BP 95/61 L 08/11/18 15:02 Pulse Ox 94 08/11/18 15:02 Constitutional: no acute distress Eyes: PERRL, conjunctivae normal, anicteric sclerae ENMT: external ear and nose normal, oropharynx normal Neck: trachea midline, no thyromegaly Respiratory: normal respiratory effort, lungs clear to auscultation Cardiovascular: RRR, no murmur, no edema Gastrointestinal (Abdomen): normal bowel sounds, soft, nontender, no hepatosplenomegaly Musculoskeletal: Extremities: extremities normal to inspection; no cyanosis and no clubbing Skin: no rashes, warm and dry (With nails bitten down with dried blood) Neurologic: moves all extremities and awake; no focal motor deficits Psychiatric: A+Ox3, euthymic affect Results & Data Laboratory Results 08/11/18 08/11/18 08/11/18 Range/Units 15:55 11:19 07:40 WBC (4.8-10.8) K/uL RBC (4.7-6.1) M/uL Hgb (14.0-18.0) g/dL Hct (42-52) % MCV (80-100) fL MCH (25-34) pg MCHC (32-36) g/dL RDW Std Deviation (36.4-46.3) fL RDW Coeff of Kami (11.5-14.5) % Plt Count (130-400) K/uL MPV (7.4-10.4) fL Immature Gran % (Auto) % Neut % (Auto) % Lymph % (Auto) % [place] % (Auto) % Eos % (Auto) % Baso % (Auto) % Immature Gran # (Auto) (0.00-0.02) K/uL Neut # (Auto) (1.4-6.5) K/uL Lymph # (Auto) (1.2-3.4) K/uL [place] # (Auto) (0.11-0.59) K/uL Eos # (Auto) (0-0.5) K/uL Baso # (Auto) (0-0.2) K/uL Sodium 134 L (136-145) mmol/L Potassium 3.9 (3.5-5.1) mmol/L Chloride 96 L (98-107) mmol/L Carbon Dioxide 27 (21-32) mmol/L Anion Gap 11.0 (3-11) BUN 94 H (7-18) mg/dl Creatinine 5.53 H* (0.6-1.4) mg/dl Est Cr Clr Drug Dosing 15.8 ml/min Est GFR ( Amer) 13.1 Est GFR (Non-Af Amer) 11.3 BUN/Creatinine Ratio 17.2 (10-20) Glucose 172 H (70-99) mg/dl POC Glucose 85 222 H (70-99) Calcium 8.0 L (8.5-10.1) mg/dl U OH-Alprazolam Confrm (CUTOFF=25) NG/ML 7-Amino Clonazepam (CUTOFF=25) NG/ML Ur Nordiazepam Confirm (CUTOFF=50) NG/ML U OH-ethylflurazepam (CUTOFF=50) NG/ML U Lorazepam Cnf GC/MS (CUTOFF=50) NG/ML U Oxazepam Confm GC/MS (CUTOFF=50) NG/ML Ur Temazepam Confirm (CUTOFF=50) NG/ML U OH-Triazolam Confirm (CUTOFF=50) NG/ML U OH-Midazolam Confirm (CUTOFF=50) NG/ML 08/11/18 08/11/18 08/10/18 Range/Units 07:40 07:35 20:44 WBC 12.28 H (4.8-10.8) K/uL RBC 3.00 L (4.7-6.1) M/uL Hgb 9.0 L (14.0-18.0) g/dL Hct 27.2 L (42-52) % MCV 90.7 (80-100) fL MCH 30.0 (25-34) pg MCHC 33.1 (32-36) g/dL RDW Std Deviation 42.3 (36.4-46.3) fL RDW Coeff of Kami 12.9 (11.5-14.5) % Plt Count 580 H (130-400) K/uL MPV 8.4 (7.4-10.4) fL Immature Gran % (Auto) 1.2 % Neut % (Auto) 71.1 % Lymph % (Auto) 14.6 % [place] % (Auto) 10.7 % Eos % (Auto) 2.0 % Baso % (Auto) 0.4 % Immature Gran # (Auto) 0.15 H (0.00-0.02) K/uL Neut # (Auto) 8.73 H (1.4-6.5) K/uL Lymph # (Auto) 1.79 (1.2-3.4) K/uL [place] # (Auto) 1.31 H (0.11-0.59) K/uL Eos # (Auto) 0.25 (0-0.5) K/uL Baso # (Auto) 0.05 (0-0.2) K/uL Sodium (136-145) mmol/L Potassium (3.5-5.1) mmol/L Chloride (98-107) mmol/L Carbon Dioxide (21-32) mmol/L Anion Gap (3-11) BUN (7-18) mg/dl Creatinine (0.6-1.4) mg/dl Est Cr Clr Drug Dosing ml/min Est GFR ( Amer) Est GFR (Non-Af Amer) BUN/Creatinine Ratio (10-20) Glucose (70-99) mg/dl POC Glucose 182 H 155 H (70-99) Calcium (8.5-10.1) mg/dl U OH-Alprazolam Confrm (CUTOFF=25) NG/ML 7-Amino Clonazepam (CUTOFF=25) NG/ML Ur Nordiazepam Confirm (CUTOFF=50) NG/ML U OH-ethylflurazepam (CUTOFF=50) NG/ML U Lorazepam Cnf GC/MS (CUTOFF=50) NG/ML U Oxazepam Confm GC/MS (CUTOFF=50) NG/ML Ur Temazepam Confirm (CUTOFF=50) NG/ML U OH-Triazolam Confirm (CUTOFF=50) NG/ML U OH-Midazolam Confirm (CUTOFF=50) NG/ML 08/07/18 Range/Units 10:35 WBC (4.8-10.8) K/uL RBC (4.7-6.1) M/uL Hgb (14.0-18.0) g/dL Hct (42-52) % MCV (80-100) fL MCH (25-34) pg MCHC (32-36) g/dL RDW Std Deviation (36.4-46.3) fL RDW Coeff of Kami (11.5-14.5) % Plt Count (130-400) K/uL MPV (7.4-10.4) fL Immature Gran % (Auto) % Neut % (Auto) % Lymph % (Auto) % [place] % (Auto) % Eos % (Auto) % Baso % (Auto) % Immature Gran # (Auto) (0.00-0.02) K/uL Neut # (Auto) (1.4-6.5) K/uL Lymph # (Auto) (1.2-3.4) K/uL [place] # (Auto) (0.11-0.59) K/uL Eos # (Auto) (0-0.5) K/uL Baso # (Auto) (0-0.2) K/uL Sodium (136-145) mmol/L Potassium (3.5-5.1) mmol/L Chloride (98-107) mmol/L Carbon Dioxide (21-32) mmol/L Anion Gap (3-11) BUN (7-18) mg/dl Creatinine (0.6-1.4) mg/dl Est Cr Clr Drug Dosing ml/min Est GFR ( Amer) Est GFR (Non-Af Amer) BUN/Creatinine Ratio (10-20) Glucose (70-99) mg/dl POC Glucose (70-99) Calcium (8.5-10.1) mg/dl U OH-Alprazolam Confrm NEGATIVE (CUTOFF=25) NG/ML 7-Amino Clonazepam NEGATIVE (CUTOFF=25) NG/ML Ur Nordiazepam Confirm 96 A (CUTOFF=50) NG/ML U OH-ethylflurazepam NEGATIVE (CUTOFF=50) NG/ML U Lorazepam Cnf GC/MS NEGATIVE (CUTOFF=50) NG/ML U Oxazepam Confm GC/MS 475 A (CUTOFF=50) NG/ML Ur Temazepam Confirm 276 A (CUTOFF=50) NG/ML U OH-Triazolam Confirm NEGATIVE (CUTOFF=50) NG/ML U OH-Midazolam Confirm NEGATIVE (CUTOFF=50) NG/ML (1) Volume overload Hypervolemia type: unspecified Qualified Code(s): E87.70 - Fluid overload, unspecified (2) Depression Active/Remission status: currently active Depression Type: major depressive disorder Major depression episode severity: moderate Major depression recurrence: unspecified whether recurrent Qualified Code(s): F32.1 - Major depressive disorder, single episode, moderate
[2018-08-11] MEDS ORDERED: INSULIN GLARGINE SOLOSTAR 100 UNITS/ML 3 ML PEN SC SCH (21:00)
[2018-08-11 21:19] LABS: Appearance Urine Clear (Clear); Bacteria Urine Automated Negative (Negative); Bilirubin Urine Negative (Negative); Blood Urine 1+ (Negative); Cast Urine Automated 0 /lpf (0-5); Color Urine Yellow; Glucose Urine UA Trace (Negative); Ketones Urine Negative (Negative); Leukocyte Esterase Urine Trace (Negative); Nitrite Urine Negative (Negative); Protein Urine 3+ (Negative); Specific Gravity Urine 1.017 (1.000-1.030); Urobilinogen Urine Negative (Negative); pH Urine 5.5 (4.5-7.5)
[2018-08-12 05:39] LABS: Basophils # (auto) 0.04 K/uL (0-0.2); Basophils % (auto) 0.3 %; Eosinophils # (auto) 0.35 K/uL (0-0.5); Eosinophils % (auto) 2.9 %; Hematocrit (blood only) 24.4 % (42-52); Hemoglobin 8.1 g/dL (14.0-18.0); Immature Granulocytes # (auto) 0.15 K/uL (0.00-0.02); Immature Granulocytes % (auto) 1.2 %; Lymphocytes # (auto) 2.12 K/uL (1.2-3.4); Lymphocytes % (auto) 17.6 %; Mean Corpuscular Hgb Conc 33.2 g/dL (32-36); Mean Corpuscular Volume 91.7 fL (80-100); Monocytes % (auto) 9.9 %; Neutrophils # (auto) 8.21 K/uL (1.4-6.5); Neutrophils % (auto) 68.1 %; Platelet Count 515 K/uL (130-400); RDW Coefficient of Variation 12.9 % (11.5-14.5); Red Blood Count 2.66 M/uL (4.7-6.1); White Blood Count 12.07 K/uL (4.8-10.8)
[2018-08-12 06:16] LABS: RBC Morphology Unremarkable
[2018-08-12 06:23] LABS: Alanine Aminotransferase 19 U/L (12-78); Alkaline Phosphatase 98 U/L (45-117); Aspartate Aminotransferase 12 U/L (15-37); BUN Creatinine Ratio 16.3 (10-20); Bilirubin Direct < 0.1 mg/dl (0-0.2); Bilirubin,Total 0.2 mg/dl (0.2-1); Blood Urea Nitrogen 89 mg/dl (7-18); Calcium 7.5 mg/dl (8.5-10.1); Carbon Dioxide 29 mmol/L (21-32); Chloride 99 mmol/L (98-107); Creatinine Clr Calc Pharmacy 15.9 ml/min; Est GFR (African American) 13.4; Est GFR (Non-African American) 11.6; Glucose 133 mg/dl (70-99); Magnesium 2.1 mg/dl (1.8-2.4); Potassium 3.8 mmol/L (3.5-5.1); Sodium 138 mmol/L (136-145); Total Protein 5.5 gm/dl (6.4-8.2)
[2018-08-12] MEDS: METOCLOPRAMIDE HCL 10 MG TABLET PO SCH ×4 (07:45→20:56)
--- NOTE | 2018-08-12 08:06 | Medical Student Progress Note ---
Date of Service August 12, 2018 Assessment & Plan (1) Volume overload: Marked improvement/resolved. 12.2kg weight loss since admission. appears euvolemic today. Has improved since stopped the Lasix drip Creatinine stabilizing, it decreased to 5.53 Volume overload was likely due to his acute renal failure rather than diastolic CHF. Echo with preserved EF. His electrolytes appear stable. Consult Nephrology regarding indications for renal replacement therapy. Even with diuretics discontinued, he continues to make urine. Therefore, I suggest not restarting Lasix today, but depending on the progress of his quantity of urine output, potentially restart diuretic? Consult Nephrology as well. Continue daily BMP & Follow I/OS Dialysis need? Appreciate nephrology assistance and refer for areas of questioning. Disposition: hosptilization as we monitor [employer] and appreciate insight from Nephro logy. Hypervolemia type: unspecified Qualified Code(s): E87.70 - Fluid overload, unspecified (2) KRYSTAL (acute kidney injury): In setting of CKD stage 3. Creatinine originally worsened in light of copious diuresis, however he has lost 13.2kg of weight with lasix drip and feels markedly better. Lasix drip has since been stopped as abover, no bolus was given today. Cr level clinically improving off Lasix, but minimal improvement. Despite state of creatinine, his acid/base status is acceptable, potassium continues to be normal, he has no symptoms of uremia except some mild nausea, and volume status is normal- No emergent/urgent dialysis is needed at this time. Hemodialysis may be required within the next few weeks/months, depending on renal function. AV fistula? Appreciate Nephrology Assistance in management. (3) Acute encephalopathy: Resolved. Was likely due to side effects from remeron. Remeron was d/c at admission. (4) Type 1 diabetes: Insulin pump on hold. Pharmacy continues to manage his basal-bolus SC regimen. Control adequate. Appreciate pharmacy assistance. (5) Diabetic gastroparesis: Cont reglan 10mg ac/hs as previous. Eating ok. (6) Essential hypertension: uncontrolled in the face of his acute kidney injury. cont norvasc 10 mg daily cont metoprolol 25mg BID. Nephrology added hydralazine 25 mg p.o. twice daily yesterday follow. (7) Depression: Numerous psychosocial stressors including separation from his , not seeing his 2 kids (only 1x/week), move to [place] from [place], etc. Remeron on hold due to sedation. Appreciate any psychiatry recommendations. Cont SSRI. Titrate the SSRI? Active/Remission status: currently active Depression Type: major depressive disorder Major depression episode severity: moderate Major depression recurrence: unspecified whether recurrent Qualified Code(s): F32.1 - Major depressive disorder, single episode, moderate (8) Anemia: Likely due to ACD from CKD. CBC again acceptable today with hemoglobin stable at 8.7 (9) Pericardial effusion: mild. seen by cardiology - Dr. Romero. I agree w/ him this is likely due to progressive renal disease. It is not causing any tamponade physiology. No Rx needed. Diurese. (10) Chronic kidney disease (CKD), stage III (moderate): baseline Cr 2 to 2.5. renal u/s w/o obstruction. has had progression of his diabetic nephropathy over the last 5-6 months. has significant proteinuria. appreciate nephrology assistance. followed by [facility]. (11) Urinary retention: patient had significant retention and did not have the sensation to void prior to parker insertion this admission. if this was chronic there should have been hydronephrosis on renal u/s (ultrasound did not show any hydro). acute retention - cause? does he have neurogenic bladder from diabetic neuropathy? BPH? prostatitis? other? at some point needs DAVIS. parker was in place, we are referring to nephrology to monitor and guide the care of this concern. Potentially in an outpatient setting. (12) Hyponatremia: 2nd to acute renal failure and diuretics. stable Na level at 134. did well with PT/OT - no need for rehab. (13) DVT prophylaxis: Heparin q12h. Disposition-remain on telemetry (14) Leukocytosis: WBC count remains at 12 He has a history of frequent leukocytosis, neutrophilia and monocytosis present which is nonspecific Also with thrombocytosis (pancytopenia?)- Secondary to inflammation? daily CBC (15) Thrombocytosis: Platelets have decreased from 581 to 515. Still in 500's, but improving. Subjective No N/V Denies shortness of breath or chest pain. No orthopnea. Appetite is restored, ate all of his breakfast. Normal Bowel Movement Mood is 8/10 Has been ambulating around the room but not in the halls. Wondering about necessity of parker Remained afebrile Normal Sinus Rhythm per tele Reports 2 brief episodes off feeling light-headed: one upon standing up and another during ambulation of the hallways last night. Physical Exam Vital Signs (Past 24 Hours): Last Vital Signs Temp 36.9 C 08/12/18 07:22 Pulse 77 08/12/18 07:22 Resp 17 08/12/18 07:22 BP 169/78 H 08/12/18 07:22 Pulse Ox 94 08/12/18 07:22 Constitutional: WD/WN, vitals as above average body habitus ENMT: external ear and nose normal, oropharynx normal Mouth: + dry oral mucous membranes and + poor dentition Neck: trachea midline, no thyromegaly + facial hair Thyroid: normal thyroid Respiratory: normal respiratory effort, lungs clear to auscultation normal respiratory effort, + dullness to percussion (left lower lobe) and able to speak in complete sentences Auscultation: lungs clear to auscultation bilaterally Cardiovascular: RRR, no murmur, no edema Heart Sounds: normal S1, normal S2 and normal, physiologic split S2 Palpation: normal PMI Vessels: dorsalis pedis pulses present, brachial pulses present and popliteal pulses present Extremities: normal capillary refill Chest (Breasts): normal inspection/palpation of breasts Chest: normal inspection of chest Gastrointestinal (Abdomen): normal bowel sounds, soft, nontender, no hepatosplenomegaly Musculoskeletal: no cyanosis or clubbing, extremities motor strength 5/5 Head/Neck/Chest: + head abnormal to inspection, normocephalic, head atraumatic and neck supple; normal inspection of chest wall Extremities: extremities normal to inspection and strength 5/5 throughout Skin: no rashes, warm and dry + nail abnormality (dry blood at fingernails where he bit them) Neurologic: patellar DTR's 2+ bilat, sensation intact CN's II-XI intact bilaterally and awake Cranial Nerves: PERRL, normal accommodation, EOM intact bilaterally, tongue midline, able to rotate head bilaterally, able to elevate shoulders bilaterally and no nystagmus Psychiatric: Affect: + constricted affect Thought Process: goal directed thought process and clear/coherent thought process Cognition: recent memory grossly intact and remote memory grossly intact Lymphatic: no cervical or axillary lymphadenopathy
[2018-08-12] MEDS: INSULIN ASPART 100 UNITS/ML 3 ML PEN SC SCH ×4 (08:25→20:59)
[2018-08-12] MEDS: AMLODIPINE BESYLATE 5 MG TAB PO SCH (08:28)
[2018-08-12] MEDS: METOPROLOL TARTRATE 25 MG TAB PO SCH ×2 (08:28→20:55)
[2018-08-12] MEDS: INSULIN GLARGINE SOLOSTAR 100 UNITS/ML 3 ML PEN SC SCH ×2 (08:29→21:00)
[2018-08-12] MEDS: SERTRALINE HCL 50 MG TABLET PO SCH (08:29)
[2018-08-12] MEDS: HEPARIN SOD 5,000 UNIT/0.5 ML VIAL SQ SCH ×2 (08:30→20:55)
[2018-08-12 08:32] LABS: Folate (Folic Acid) 17.61 ng/ml (>5.38)
--- NOTE | 2018-08-12 11:23 | Urology Consultation ---
Date of Consultation August 12, 2018 Assessment & Plan (1) Urinary retention: 47yo M with TIDM with gastroparesis and CKDIII presents with urinary retention, concurrently with other medical issues. Renal US reveals no sign of chronic PERRY. KRYSTAL managed by nephrology. Parker catheter draining clear yellow. 08/07 UC&S no growth. Pt has had catheter x7d during this admission, okay to attempt voiding trial in AM. Please replace parker catheter if unable to void within 6 hours. Patient will require thorough urologic evaluation to determine cause of bladder dysfunction as outpatient, agree that DM is likely playing significant role. Patient will likely need to learn CIC, we briefly discussed this and he feels open to this vs indwelling catheter emt intermediate. Thank you for the consultation, we will continue to follow. History of Present Illness Reason for Consultation: UR Requesting Physician: Dr Ponce Attending Physician: Mireille Ponce MD History of Present Illness 47yo M with many hospitalizations related to his PMHx of TIDM, gastroparesis, CKD III presented to ED on 08/06/18 with lethargy and shortness of breath. Diagnosed with encephalopathy, KRYSTAL, volume overload, and hypoglycemia. At time of admission, patient was found to also be in urinary retention, with catheterized for large volume without sensation. We were consulted regarding urinary retention and catheter management. Renal US from 08/06 reviewed - R renal stone, L renal cyst, no hydronephrosis. KRYSTAL management per tearoom hostess. Pt resting but easily arousable and conversive at time of evaluation. Tolerating catheter well. Denies flank or suprapubic pain or bladder spasms. Denies hematuria or catheter irritation. Denies LUTS including frequency, urgency, nocturia or incontinence at baseline. Denies home medications for BPH. PMHx per patient includes nephrolithiasis. Distantly evaluated by [facility] many years ago. He has not had problems with stones in many years. He relates that he has only required catheters during surgeries, but denies need for catheter for extended periods of time. Allergies Allergy/AdvReac Type Severity Reaction Status Date / Time shellfish derived Allergy Severe anaphylaxis Verified 08/06/18 10:26 promethazine Allergy Intermediate itchy/hives Verified 08/06/18 10:26 Home Medications Home Medications Medication Instructions Recorded Confirmed Type ondansetron HCl [Zofran] 4 mg PO QID PRN #0 tab 10/05/15 08/06/18 History prochlorperazine [Compazine] 25 mg MS Q12H #0 supp 10/05/15 08/06/18 History insulin pump-infus. set-meter 1 dose NOT APPLICABLE UD #0 dose 05/20/16 08/06/18 History metoclopramide HCl [Reglan] 10 mg PO QID PRN #6 tab 11/26/17 08/06/18 History amlodipine 10 mg PO QAM 07/09/18 08/06/18 History sertraline 50 mg PO QAM 30 Days #30 tab 07/14/18 08/06/18 Rx Patient History Medical History Diabetic nephropathy CKD stage 3 due to type 1 diabetes mellitus Anxiety HTN (hypertension) Gastroparesis (Chronic) Mr. De Los Santos is a 47 yr old male with diabetic gastroparesis. Plan: EGD today if endoscopy can accomodate, if not, this will need to be done tomorrow. Will continue IV fluids, antiemetics and will change Reglan from prn to Q6hrs. May also try e-mycin 250mg Q6hrs if able to obtain as on short supply. Diabetes (Chronic) Acid reflux CKD (chronic kidney disease) Depression Gastroparesis due to DM Hypertension Type I diabetes mellitus Surgical History H/O shoulder surgery History of appendectomy History of hip surgery Family History Grandfather Heart attack Social History Communication Ability: Effective Beliefs That Will Affect Care: None marital status: Legally Current Living Situation: Parent current occupational status: employed Other Information That Helps Us Care for You: No Feels Safe at Home: Yes Safety Concerns: Feels Safe At This Time Smoking Status: Never smoker Hx Alcohol Use: No Hx Substance Use: No Review of Systems Constitutional: no fever and no chills Eyes: no problem reported Ear, Nose, Mouth, Throat: no ear pain and no tinnitus Respiratory: no cough and no dyspnea Cardiovascular: no chest pain Gastrointestinal: no abdominal pain, no nausea and no vomiting Genitourinary (Male): no dysuria and no hematuria Physical Exam Vital Signs (Past 24 Hours): Last Vital Signs Temp 36.9 C 08/12/18 07:22 Pulse 77 08/12/18 07:22 Resp 17 08/12/18 07:22 BP 169/78 H 08/12/18 07:22 Pulse Ox 94 08/12/18 07:22 Constitutional: + not well nourished and no acute distress Eyes: no nystagmus ENMT: Ears: no hearing impairment Neck: trachea midline Respiratory: no respiratory distress, does not use accessory muscles and no cough Cardiovascular: Vessels: no JVD Gastrointestinal (Abdomen): Inspection/Auscultation: abdomen not distended and no abdominal edema Percussion/Palpation: abdomen soft; abdomen nontender Skin: no rashes and no ulcers Neurologic: Motor/Sensory: no tremor Psychiatric: Orientation: alert and oriented x 3 Eye Contact: good eye contact Mood: + depressed mood Genitourinary: no CVA tenderness Lymphatic: no lymphadenopathy Results & Data Laboratory Results Laboratory Results - last 48 hr 08/07/18 08/10/18 08/10/18 10:35 16:15 20:44 WBC RBC Hgb Hct MCV MCH MCHC RDW Std Deviation RDW Coeff of Kami Plt Count MPV Immature Gran % (Auto) Neut % (Auto) Lymph % (Auto) Weber % (Auto) Eos % (Auto) Baso % (Auto) Immature Gran # (Auto) Neut # (Auto) Lymph # (Auto) Weber # (Auto) Eos # (Auto) Baso # (Auto) RBC Morphology Sodium Potassium Chloride Carbon Dioxide Anion Gap BUN Creatinine Est Cr Clr Drug Dosing Est GFR ( Amer) Est GFR (Non-Af Amer) BUN/Creatinine Ratio Glucose POC Glucose 164 H 155 H Calcium Magnesium Total Bilirubin Direct Bilirubin AST ALT Alkaline Phosphatase Total Protein Albumin Vitamin B12 Folate Urine Color Urine Appearance Urine pH Ur Specific [place] Urine Protein Urine Glucose (UA) Urine Ketones Urine Blood Urine Nitrite Urine Bilirubin Urine Urobilinogen Ur Leukocyte Esterase Urine WBC (Auto) Urine RBC (Auto) U Hyaline Cast (Auto) U Epithel Cells (Auto) Urine Bacteria (Auto) U OH-Alprazolam Confrm NEGATIVE 7-Amino Clonazepam NEGATIVE Ur Nordiazepam Confirm 96 A U OH-ethylflurazepam NEGATIVE U Lorazepam Cnf GC/MS NEGATIVE U Oxazepam Confm GC/MS 475 A Ur Temazepam Confirm 276 A U OH-Triazolam Confirm NEGATIVE U OH-Midazolam Confirm NEGATIVE 08/11/18 08/11/18 08/11/18 07:35 07:40 07:40 WBC 12.28 H RBC 3.00 L Hgb 9.0 L Hct 27.2 L MCV 90.7 MCH 30.0 MCHC 33.1 RDW Std Deviation 42.3 RDW Coeff of Kami 12.9 Plt Count 580 H MPV 8.4 Immature Gran % (Auto) 1.2 Neut % (Auto) 71.1 Lymph % (Auto) 14.6 Weber % (Auto) 10.7 Eos % (Auto) 2.0 Baso % (Auto) 0.4 Immature Gran # (Auto) 0.15 H Neut # (Auto) 8.73 H Lymph # (Auto) 1.79 Weber # (Auto) 1.31 H Eos # (Auto) 0.25 Baso # (Auto) 0.05 RBC Morphology Sodium 134 L Potassium 3.9 Chloride 96 L Carbon Dioxide 27 Anion Gap 11.0 BUN 94 H Creatinine 5.53 H* Est Cr Clr Drug Dosing 15.8 Est GFR ( Amer) 13.1 Est GFR (Non-Af Amer) 11.3 BUN/Creatinine Ratio 17.2 Glucose 172 H POC Glucose 182 H Calcium 8.0 L Magnesium Total Bilirubin Direct Bilirubin AST ALT Alkaline Phosphatase Total Protein Albumin Vitamin B12 Folate Urine Color Urine Appearance Urine pH Ur Specific [place] Urine Protein Urine Glucose (UA) Urine Ketones Urine Blood Urine Nitrite Urine Bilirubin Urine Urobilinogen Ur Leukocyte Esterase Urine WBC (Auto) Urine RBC (Auto) U Hyaline Cast (Auto) U Epithel Cells (Auto) Urine Bacteria (Auto) U OH-Alprazolam Confrm 7-Amino Clonazepam Ur Nordiazepam Confirm U OH-ethylflurazepam U Lorazepam Cnf GC/MS U Oxazepam Confm GC/MS Ur Temazepam Confirm U OH-Triazolam Confirm U OH-Midazolam Confirm 08/11/18 08/11/18 08/11/18 11:19 15:55 20:14 WBC RBC Hgb Hct MCV MCH MCHC RDW Std Deviation RDW Coeff of Kami Plt Count MPV Immature Gran % (Auto) Neut % (Auto) Lymph % (Auto) Weber % (Auto) Eos % (Auto) Baso % (Auto) Immature Gran # (Auto) Neut # (Auto) Lymph # (Auto) Weber # (Auto) Eos # (Auto) Baso # (Auto) RBC Morphology Sodium Potassium Chloride Carbon Dioxide Anion Gap BUN Creatinine Est Cr Clr Drug Dosing Est GFR ( Amer) Est GFR (Non-Af Amer) BUN/Creatinine Ratio Glucose POC Glucose 222 H 85 95 Calcium Magnesium Total Bilirubin Direct Bilirubin AST ALT Alkaline Phosphatase Total Protein Albumin Vitamin B12 Folate Urine Color Urine Appearance Urine pH Ur Specific [place] Urine Protein Urine Glucose (UA) Urine Ketones Urine Blood Urine Nitrite Urine Bilirubin Urine Urobilinogen Ur Leukocyte Esterase Urine WBC (Auto) Urine RBC (Auto) U Hyaline Cast (Auto) U Epithel Cells (Auto) Urine Bacteria (Auto) U OH-Alprazolam Confrm 7-Amino Clonazepam Ur Nordiazepam Confirm U OH-ethylflurazepam U Lorazepam Cnf GC/MS U Oxazepam Confm GC/MS Ur Temazepam Confirm U OH-Triazolam Confirm U OH-Midazolam Confirm 08/11/18 08/12/18 08/12/18 21:00 05:21 05:21 WBC 12.07 H RBC 2.66 L Hgb 8.1 L Hct 24.4 L MCV 91.7 MCH 30.5 MCHC 33.2 RDW Std Deviation 43.0 RDW Coeff of Kami 12.9 Plt Count 515 H MPV 8.0 Immature Gran % (Auto) 1.2 Neut % (Auto) 68.1 Lymph % (Auto) 17.6 Weber % (Auto) 9.9 Eos % (Auto) 2.9 Baso % (Auto) 0.3 Immature Gran # (Auto) 0.15 H Neut # (Auto) 8.21 H Lymph # (Auto) 2.12 Weber # (Auto) 1.20 H Eos # (Auto) 0.35 Baso # (Auto) 0.04 RBC Morphology Unremarkable Sodium 138 Potassium 3.8 Chloride 99 Carbon Dioxide 29 Anion Gap 10.0 BUN 89 H Creatinine 5.42 H* Est Cr Clr Drug Dosing 15.9 Est GFR ( Amer) 13.4 Est GFR (Non-Af Amer) 11.6 BUN/Creatinine Ratio 16.3 Glucose 133 H POC Glucose Calcium 7.5 L Magnesium 2.1 Total Bilirubin 0.2 Direct Bilirubin < 0.1 AST 12 L ALT 19 Alkaline Phosphatase 98 Total Protein 5.5 L Albumin 2.0 L Vitamin B12 Folate Urine Color Yellow Urine Appearance Clear Urine pH 5.5 Ur Specific [place] 1.017 Urine Protein 3+ H Urine Glucose (UA) Trace H Urine Ketones Negative Urine Blood 1+ H Urine Nitrite Negative Urine Bilirubin Negative Urine Urobilinogen Negative Ur Leukocyte Esterase Trace H Urine WBC (Auto) 1-5 Urine RBC (Auto) 5-10 H U Hyaline Cast (Auto) 0 U Epithel Cells (Auto) 10-20 H Urine Bacteria (Auto) Negative U OH-Alprazolam Confrm 7-Amino Clonazepam Ur Nordiazepam Confirm U OH-ethylflurazepam U Lorazepam Cnf GC/MS U Oxazepam Confm GC/MS Ur Temazepam Confirm U OH-Triazolam Confirm U OH-Midazolam Confirm 08/12/18 08/12/18 08/12/18 05:21 07:30 11:18 WBC RBC Hgb Hct MCV MCH MCHC RDW Std Deviation RDW Coeff of Kami Plt Count MPV Immature Gran % (Auto) Neut % (Auto) Lymph % (Auto) Weber % (Auto) Eos % (Auto) Baso % (Auto) Immature Gran # (Auto) Neut # (Auto) Lymph # (Auto) Weber # (Auto) Eos # (Auto) Baso # (Auto) RBC Morphology Sodium Potassium Chloride Carbon Dioxide Anion Gap BUN Creatinine Est Cr Clr Drug Dosing Est GFR ( Amer) Est GFR (Non-Af Amer) BUN/Creatinine Ratio Glucose POC Glucose 165 H 219 H Calcium Magnesium Total Bilirubin Direct Bilirubin AST ALT Alkaline Phosphatase Total Protein Albumin Vitamin B12 465 Folate 17.61 Urine Color Urine Appearance Urine pH Ur Specific [place] Urine Protein Urine Glucose (UA) Urine Ketones Urine Blood Urine Nitrite Urine Bilirubin Urine Urobilinogen Ur Leukocyte Esterase Urine WBC (Auto) Urine RBC (Auto) U Hyaline Cast (Auto) U Epithel Cells (Auto) Urine Bacteria (Auto) U OH-Alprazolam Confrm 7-Amino Clonazepam Ur Nordiazepam Confirm U OH-ethylflurazepam U Lorazepam Cnf GC/MS U Oxazepam Confm GC/MS Ur Temazepam Confirm U OH-Triazolam Confirm U OH-Midazolam Confirm
--- NOTE | 2018-08-12 14:31 | Pharmacy Report ---
Pharmacy Glycemic Short Note 2 - Date of Service August 12, 2018 - Glycemic Short BSG Results (Last 24 hours): 08/11/18 08/11/18 08/12/18 15:55 20:14 05:21 Glucose 133 H POC Glucose 85 95 08/12/18 08/12/18 07:30 11:18 Glucose POC Glucose 165 H 219 H OUTPATIENT ANTIDIABETIC REGIMEN: Humalog pump * A1c = 8.4 % 06/03/18 ASSESSMENT: 08/12/18 * 4 units of HS lantus yields improved am FBS. I did adjust the AM lantus dose: give 12 units for BSGs <180mg/dL, give 14 units for BSGs >/=180mg/dL bc of some borderline BSGs yesterday evening. 08/11/18 * 3 units of HS lantus have improved FBS and lunch BSGs. Will increase Mr. De Los Santos's HS lantus from 3---> 4 units. I am cautious in titrating his HS dose due to the labile nature of his DM-I and his propensity of fasting lows. 08/10/18 * Will add a small HS lantus dose tonight: over the preceding 48hrs his FBS and lunch BSG have all been elevated. dinner BSGs and HS BSGs all euglycemic. 08/07/18 * Hypoglycemia resolved * Fasting BSG is at goal. I will order a one time dose of 15 units of Lantus for today then per scale. During previous admissions he has required Lantus 10-18 units per day. Continue current Novolog coverage 08/06/18 * Mr. De Los Santos is a 47yo M p/w acute encephalopathy. He had some concerning lows in the ER; humalog pump was removed a few hours ago, necessitating metabolic insulin sanjana. He is known to the pharmacy glycemic service from previous admissions. PMHx: consistent with DM-I, CKD-III, HTN, GERD, gastroparesis. * If he starts having lows post-prandially, consider novolog---> SQ regular insulin to help mimic his impaired carb absorption. PLAN FOR INPATIENT GLYCEMIC CONTROL: * Basal insulin QAM * 12 units for BSG less than 120 * 15 units for BSG 120 or greater HS x1 * 4 units, historically he is prone to extreme AM lows with doses >5units at HS * Bolus insulin * NovoLog per scale ACHS or Q6hrs while NPO * Goal Range: Low 120 mg/dL - High 160 mg/dL * Correction Factor: 30 mg/dL/unit * Nutritional / Prandial insulin per carb ratio of 1 unit per 10 grams CHO consumed
--- NOTE | 2018-08-12 22:45 | Hospitalist Progress Note ---
Date of Service August 12, 2018 Assessment & Plan (1) Volume overload: Marked improvement/resolved. Continues to autodiurese off all lasix x 3 days now Has now had a 13 kg weight loss since admisson after being on a Lasix drip. Continues to appear euvolemic Have since stopped the Lasix drip Creatinine continues to be improved today Volume overload was likely due to his acute renal failure rather than diastolic CHF. Echo with preserved EF. Will possibly start Lasix IV boluses if not diuresing on own Appreciate nephrology assistance. (2) KRYSTAL (acute kidney injury): In setting of CKD stage 3. Creatinine worsened in the face of diuresis but he has lost 13 kg of weight with lasix infusion and feels markedly better. Some of the worsening creatinine is certainly to his copious diuresis on the lasix drip which is now discontinued. Foundation Assistant continues to improve down to 5.42 Despite the worsening in the creatinine, his acid/base status is acceptable, potassium continues to be normal, he has no symptoms of uremia, and volume status is normal. Thus, emergent or urgent dialysis is not needed at this time. With that said he may need HD in the next few weeks/months if renal function continues to worsen as it has done in the last 1-2 months. Defer to nephrology when an AV fistula should be created. Appreciate nephrology assistance. (3) Acute encephalopathy: Resolved. Was likely due to side effects from remeron. Remeron was d/c at admission. (4) Type 1 diabetes: Insulin pump on hold. Hemoglobin A1c 8.4% in 05/2018 Pharmacy continues to manage his basal-bolus SC regimen. Appreciate pharmacy assistance. With some hyperglycemia which is now improved with increasing Lantus to 15 units in the morning and 4 units at nighttime -Continue NovoLog with meals and at bedtime (5) Diabetic gastroparesis: Cont reglan 10mg ac/hs as previous. Eating ok. (6) Essential hypertension: uncontrolled in the face of his acute kidney injury, but improved today cont norvasc 10 mg daily -continue metoprolol 25mg BID. -Nephrology added hydralazine 25 mg p.o. 3 times daily follow. (7) Depression: Numerous psychosocial stressors including separation from his , not seeing his 2 kids (only 1x/week), move to [place] from [place], etc. Remeron on hold due to sedation. Appreciate any psychiatry recommendations. Cont Zoloft 50mg daily (8) Anemia: Likely due to ACD from CKD. CBC again acceptable today with hemoglobin stable at 8.1 B12 and folate normal (9) Pericardial effusion: mild. seen by cardiology - Dr. Romero. - likely due to progressive renal disease. It is not causing any tamponade physiology. No Rx needed. Diurese. (10) Chronic kidney disease (CKD), stage III (moderate): baseline Cr 2 to 2.5. renal u/s w/o obstruction. has had progression of his diabetic nephropathy over the last 5-6 months. has significant proteinuria. appreciate nephrology assistance. followed by [facility]. (11) Urinary retention: -Had significant retention and did not have the sensation to void prior to parker insertion this admission. if this was chronic there should have been hydronephrosis on renal u/s (ultrasound did not show any hydro). acute retention -unclear cause-could have neurogenic bladder from diabetic neuropathy Less likely that he has BPH given his young age but is possible Urinalysis not indicative of infection but could have prostatitis regardless - consulted urology for further evaluation--> pulled Parker today and trial of void, replace Parker if needed (12) Hyponatremia: 2nd to acute renal failure and diuretics. Now resolved, Na+ 138 -Follow BMP in the morning (13) Leukocytosis: WBC count remains at 12 but slighjtly lower than yesterday-historically he frequently has a leukocytosis, neutrophilia and monocytosis present which is nonspecific Also with thrombocytosis which is improving today Most likely secondary to inflammatory response due to illness and KRYSTAL given both WBCs and plts elevated No source of infection found -Follow CBC (14) Thrombocytosis: Platelets in the 500s, as above, improving (15) DVT prophylaxis: Heparin q12h. Disposition-remain on telemetry, expect at least 3-4 more days here Subjective Pt feels very well today. No N/V, no abd pain, no CP or SOB. Feels his mood is down a bit just from being in the hospital for so long. Continues to autodiurese. BPs still high at times. Does have some lightheadedness when he first stands up sometimes today. Had Parker removed today Review of Systems All systems reviewed & are unremarkable except as noted in HPI & below Physical Exam Vital Signs (Past 24 Hours): Last Vital Signs Temp 36.7 C 08/12/18 18:57 Pulse 76 08/12/18 18:57 Resp 20 08/12/18 18:57 BP 153/80 H 08/12/18 18:57 Pulse Ox 94 08/12/18 18:57 Constitutional: no acute distress Eyes: PERRL, conjunctivae normal, anicteric sclerae ENMT: external ear and nose normal, oropharynx normal Neck: trachea midline, no thyromegaly Respiratory: normal respiratory effort, lungs clear to auscultation Cardiovascular: RRR, no murmur, no edema Gastrointestinal (Abdomen): normal bowel sounds, soft, nontender, no hepatosplenomegaly Musculoskeletal: Extremities: extremities normal to inspection; no cyanosis and no clubbing Skin: no rashes, warm and dry (With nails bitten down with dried blood) Neurologic: moves all extremities and awake; no focal motor deficits Psychiatric: A+Ox3, euthymic affect Results & Data Laboratory Results 08/12/18 08/12/18 08/12/18 Range/Units 20:22 16:26 11:18 WBC (4.8-10.8) K/uL RBC (4.7-6.1) M/uL Hgb (14.0-18.0) g/dL Hct (42-52) % MCV (80-100) fL MCH (25-34) pg MCHC (32-36) g/dL RDW Std Deviation (36.4-46.3) fL RDW Coeff of Kami (11.5-14.5) % Plt Count (130-400) K/uL MPV (7.4-10.4) fL Immature Gran % (Auto) % Neut % (Auto) % Lymph % (Auto) % Price % (Auto) % Eos % (Auto) % Baso % (Auto) % Immature Gran # (Auto) (0.00-0.02) K/uL Neut # (Auto) (1.4-6.5) K/uL Lymph # (Auto) (1.2-3.4) K/uL Price # (Auto) (0.11-0.59) K/uL Eos # (Auto) (0-0.5) K/uL Baso # (Auto) (0-0.2) K/uL RBC Morphology Sodium (136-145) mmol/L Potassium (3.5-5.1) mmol/L Chloride (98-107) mmol/L Carbon Dioxide (21-32) mmol/L Anion Gap (3-11) BUN (7-18) mg/dl Creatinine (0.6-1.4) mg/dl Est Cr Clr Drug Dosing ml/min Est GFR ( Amer) Est GFR (Non-Af Amer) BUN/Creatinine Ratio (10-20) Glucose (70-99) mg/dl POC Glucose 136 H 96 219 H (70-99) Calcium (8.5-10.1) mg/dl Magnesium (1.8-2.4) mg/dl Total Bilirubin (0.2-1) mg/dl Direct Bilirubin (0-0.2) mg/dl AST (15-37) U/L ALT (12-78) U/L Alkaline Phosphatase (45-117) U/L Total Protein (6.4-8.2) gm/dl Albumin (3.4-5.0) gm/dl Vitamin B12 (211-911) pg/ml Folate (>5.38) ng/ml 08/12/18 08/12/18 08/12/18 Range/Units 07:30 05:21 05:21 WBC (4.8-10.8) K/uL RBC (4.7-6.1) M/uL Hgb (14.0-18.0) g/dL Hct (42-52) % MCV (80-100) fL MCH (25-34) pg MCHC (32-36) g/dL RDW Std Deviation (36.4-46.3) fL RDW Coeff of Kami (11.5-14.5) % Plt Count (130-400) K/uL MPV (7.4-10.4) fL Immature Gran % (Auto) % Neut % (Auto) % Lymph % (Auto) % Price % (Auto) % Eos % (Auto) % Baso % (Auto) % Immature Gran # (Auto) (0.00-0.02) K/uL Neut # (Auto) (1.4-6.5) K/uL Lymph # (Auto) (1.2-3.4) K/uL Price # (Auto) (0.11-0.59) K/uL Eos # (Auto) (0-0.5) K/uL Baso # (Auto) (0-0.2) K/uL RBC Morphology Sodium 138 (136-145) mmol/L Potassium 3.8 (3.5-5.1) mmol/L Chloride 99 (98-107) mmol/L Carbon Dioxide 29 (21-32) mmol/L Anion Gap 10.0 (3-11) BUN 89 H (7-18) mg/dl Creatinine 5.42 H* (0.6-1.4) mg/dl Est Cr Clr Drug Dosing 15.9 ml/min Est GFR ( Amer) 13.4 Est GFR (Non-Af Amer) 11.6 BUN/Creatinine Ratio 16.3 (10-20) Glucose 133 H (70-99) mg/dl POC Glucose 165 H (70-99) Calcium 7.5 L (8.5-10.1) mg/dl Magnesium 2.1 (1.8-2.4) mg/dl Total Bilirubin 0.2 (0.2-1) mg/dl Direct Bilirubin < 0.1 (0-0.2) mg/dl AST 12 L (15-37) U/L ALT 19 (12-78) U/L Alkaline Phosphatase 98 (45-117) U/L Total Protein 5.5 L (6.4-8.2) gm/dl Albumin 2.0 L (3.4-5.0) gm/dl Vitamin B12 465 (211-911) pg/ml Folate 17.61 (>5.38) ng/ml 08/12/18 Range/Units 05:21 WBC 12.07 H (4.8-10.8) K/uL RBC 2.66 L (4.7-6.1) M/uL Hgb 8.1 L (14.0-18.0) g/dL Hct 24.4 L (42-52) % MCV 91.7 (80-100) fL MCH 30.5 (25-34) pg MCHC 33.2 (32-36) g/dL RDW Std Deviation 43.0 (36.4-46.3) fL RDW Coeff of Kami 12.9 (11.5-14.5) % Plt Count 515 H (130-400) K/uL MPV 8.0 (7.4-10.4) fL Immature Gran % (Auto) 1.2 % Neut % (Auto) 68.1 % Lymph % (Auto) 17.6 % Price % (Auto) 9.9 % Eos % (Auto) 2.9 % Baso % (Auto) 0.3 % Immature Gran # (Auto) 0.15 H (0.00-0.02) K/uL Neut # (Auto) 8.21 H (1.4-6.5) K/uL Lymph # (Auto) 2.12 (1.2-3.4) K/uL Price # (Auto) 1.20 H (0.11-0.59) K/uL Eos # (Auto) 0.35 (0-0.5) K/uL Baso # (Auto) 0.04 (0-0.2) K/uL RBC Morphology Unremarkable Sodium (136-145) mmol/L Potassium (3.5-5.1) mmol/L Chloride (98-107) mmol/L Carbon Dioxide (21-32) mmol/L Anion Gap (3-11) BUN (7-18) mg/dl Creatinine (0.6-1.4) mg/dl Est Cr Clr Drug Dosing ml/min Est GFR ( Amer) Est GFR (Non-Af Amer) BUN/Creatinine Ratio (10-20) Glucose (70-99) mg/dl POC Glucose (70-99) Calcium (8.5-10.1) mg/dl Magnesium (1.8-2.4) mg/dl Total Bilirubin (0.2-1) mg/dl Direct Bilirubin (0-0.2) mg/dl AST (15-37) U/L ALT (12-78) U/L Alkaline Phosphatase (45-117) U/L Total Protein (6.4-8.2) gm/dl Albumin (3.4-5.0) gm/dl Vitamin B12 (211-911) pg/ml Folate (>5.38) ng/ml (1) Volume overload Hypervolemia type: unspecified Qualified Code(s): E87.70 - Fluid overload, unspecified (2) Depression Active/Remission status: currently active Depression Type: major depressive disorder Major depression episode severity: moderate Major depression recurrence: unspecified whether recurrent Qualified Code(s): F32.1 - Major depressive disorder, single episode, moderate
[2018-08-13 06:04] LABS: Basophils # (auto) 0.06 K/uL (0-0.2); Basophils % (auto) 0.5 %; Eosinophils # (auto) 0.33 K/uL (0-0.5); Eosinophils % (auto) 2.7 %; Hematocrit (blood only) 26.3 % (42-52); Hemoglobin 8.7 g/dL (14.0-18.0); Immature Granulocytes # (auto) 0.12 K/uL (0.00-0.02); Lymphocytes # (auto) 1.96 K/uL (1.2-3.4); Lymphocytes % (auto) 16.3 %; Mean Corpuscular Hgb Conc 33.1 g/dL (32-36); Mean Platelet Volume 8.4 fL (7.4-10.4); Neutrophils # (auto) 8.36 K/uL (1.4-6.5); Neutrophils % (auto) 69.5 %; Platelet Count 569 K/uL (130-400); RDW Coefficient of Variation 12.9 % (11.5-14.5); RDW Standard Deviation 43.3 fL (36.4-46.3); Red Blood Count 2.86 M/uL (4.7-6.1); White Blood Count 12.03 K/uL (4.8-10.8)
[2018-08-13 06:51] LABS: BUN Creatinine Ratio 14.1 (10-20); Calcium 7.5 mg/dl (8.5-10.1); Creatinine Clr Calc Pharmacy 15.7 ml/min; Est GFR (African American) 13.3; Est GFR (Non-African American) 11.5; Potassium 3.9 mmol/L (3.5-5.1)
[2018-08-13] MEDS ORDERED: INSULIN ASPART 100 UNITS/ML 3 ML PEN SC SCH ×2 (07:30→11:30)
--- NOTE | 2018-08-13 08:17 | Medical Student Progress Note ---
Date of Service August 13, 2018 Assessment & Plan (1) Volume overload: Marked improvement/resolved. Continues to autodiurese off all lasix x 4 days now Has now had a 13.7 kg weight loss since admission after being on a Lasix drip. Continues to appear euvolemic since stopped the Lasix drip Creatinine continues to be improved today, but not by much () Volume overload was likely due to his acute renal failure rather than diastolic CHF. Echo with preserved EF. Will possibly start Lasix IV boluses if not diuresing on own Appreciate nephrology assistance. Hypervolemia type: unspecified Qualified Code(s): E87.70 - Fluid overload, unspecified (2) KRYSTAL (acute kidney injury): In setting of CKD stage 3. Creatinine worsened in the face of diuresis but he has lost 13 kg of weight with lasix infusion and feels markedly better. Some of the worsening creatinine is certainly to his copious diuresis on the lasix drip which is now discontinued. Chief Development Officer appears stagnant today increased from 5.42 to 5.46 Despite the worsening in the creatinine, his acid/base status is acceptable, potassium continues to be normal, he has no symptoms of uremia, and volume status is normal. Thus, emergent or urgent dialysis is not needed at this time. With that said he may need HD in the next few weeks/months if renal function continues to worsen as it has done in the last 1-2 months. Defer to nephrology when an AV fistula should be created. Appreciate nephrology assistance. (3) Acute encephalopathy: Resolved. Was likely due to side effects from remeron. Remeron was d/c at admission. (4) Type 1 diabetes: Insulin pump on hold. Hemoglobin A1c 8.4% in 05/2018 Pharmacy continues to manage his basal-bolus SC regimen. Appreciate pharmacy assistance. With some hyperglycemia which is now improved with increasing Lantus he received 28 units yesterday (16 was bolus) Continue NovoLog with meals and at bedtime (5) Diabetic gastroparesis: Cont reglan 10mg ac/hs as previous. Eatign well, having normal bowel movements. (6) Essential hypertension: uncontrolled in the face of his acute kidney injury, slightly higher today than yesterday (sys 170s instead of 160s) cont norvasc 10 mg daily continue metoprolol 25mg BID. Nephrology added hydralazine 25 mg p.o. 3 TID- continue. (7) Depression: Numerous psychosocial stressors including separation from his , not seeing his 2 kids (only 1x/week), move to [place] from [place], etc. Remeron on hold due to sedation. Appreciate any psychiatry recommendations. Yesterday, parents inquired about psychiatric consult in regard to his worsening mood. Cont Zoloft 50mg daily Active/Remission status: currently active Depression Type: major depressive disorder Major depression episode severity: moderate Major depression recurrence: unspecified whether recurrent Qualified Code(s): F32.1 - Major depressive disorder, single episode, moderate (8) Anemia: Likely due to ACD from CKD. CBC acceptable today with hgb stable at 8.1 B12 and folate are nomrmal (9) Pericardial effusion: mild. seen by cardiology - Dr. Romero. likely due to progressive renal disease as oposed to cardiac etiology It is not causing any tamponade physiology. He is in NSR No Rx needed. Diurese not needed at the moment (10) Chronic kidney disease (CKD), stage III (moderate): baseline Cr 2 to 2.5. renal u/s w/o obstruction. has had progression of his diabetic nephropathy over the last 5-6 months. has significant proteinuria. appreciate nephrology assistance. followed by [facility]. (11) Urinary retention: -Had significant retention and did not have the sensation to void prior to pakrer insertion this admission. if this was chronic there should have been hydronephrosis on renal u/s (ultrasound did not show any hydro). acute retention -unclear cause-could have neurogenic bladder from diabetic neuropathy Less likely that he has BPH given his young age but is possible Urinalysis not indicative of infection but could have prostatitis regardless Catheter was removed this morning per order of Urology. He was able to spontaneously void bladder scan qshift and PRN- If post void retention is >500cc, replace indwelling catheter. Orders adjusted to reflect this recommendations. Will need outpt Urology f/u and evaluation to determine cause of bladder dysfunction. Urology agrees that DM to likely play significant role. Patient will likely need to learn CIC, we briefly discussed this and he feels open to this vs indwelling catheter residential. They will arrange appt (12) Hyponatremia: 2nd to acute renal failure and diuretics. Now resolved, Na+ dipped back to 135, but is still acceptable Follow BMP in am (13) Leukocytosis: WBC count remains at 12 but slighjtly lower than yesterday-historically he frequently has a leukocytosis, neutrophilia and monocytosis present which is nonspecific Also with thrombocytosis which is improving today Most likely secondary to inflammatory response due to illness and KRYSTAL given both WBCs and plts elevated No source of infection found Follow CBC (14) Thrombocytosis: Platelets in the 500s, increased to 569 from 515 (15) DVT prophylaxis: Heparin q12h. Disposition-remain on telemetry, expect at least 2-3 more days here Subjective Pt feels very well today. No N/V no abd pain no CP or SOB. Parents concerned about worsening mood and would like to inquire another psych consult and potentially adding another rx to assist with mood Continues to autodiurese, parker was removed this morning and he was able to urinate on his own BPs higher than what he has been averaging Denies further lightheadedness Physical Exam Vital Signs (Past 24 Hours): Last Vital Signs Temp 36.7 C 08/13/18 07:17 Pulse 81 08/13/18 07:27 Resp 18 08/13/18 07:17 BP 177/86 H 08/13/18 07:17 Pulse Ox 95 08/13/18 07:17 Constitutional: WD/WN, vitals as above average body habitus ENMT: external ear and nose normal, oropharynx normal Mouth: + dry oral mucous membranes and + poor dentition Neck: trachea midline, no thyromegaly + facial hair Thyroid: normal thyroid Respiratory: normal respiratory effort, lungs clear to auscultation normal respiratory effort, + dullness to percussion (left lower lobe) and able to speak in complete sentences Auscultation: lungs clear to auscultation bilaterally Cardiovascular: RRR, no murmur, no edema Heart Sounds: normal S1, normal S2 and normal, physiologic split S2 Palpation: normal PMI Vessels: dorsalis pedis pulses present, brachial pulses present and popliteal pulses present Extremities: normal capillary refill Chest (Breasts): normal inspection/palpation of breasts Chest: normal inspection of chest Gastrointestinal (Abdomen): normal bowel sounds, soft, nontender, no hepatosplenomegaly Musculoskeletal: no cyanosis or clubbing, extremities motor strength 5/5 Head/Neck/Chest: + head abnormal to inspection, normocephalic, head atraumatic and neck supple; normal inspection of chest wall Extremities: extremities normal to inspection and strength 5/5 throughout Skin: no rashes, warm and dry + nail abnormality (dry blood at fingernails where he bit them) Neurologic: patellar DTR's 2+ bilat, sensation intact CN's II-XI intact bi laterally and awake Cranial Nerves: PERRL, normal accommodation, EOM intact bilaterally, tongue midline, able to rotate head bilaterally, able to elevate shoulders bilaterally and no nystagmus Psychiatric: Affect: + constricted affect Thought Process: goal directed thought process and clear/coherent thought process Cognition: recent memory grossly intact and remote memory grossly intact Lymphatic: no cervical or axillary lymphadenopathy Results & Data Labs Labs: Short CBC 08/06/18 08/06/18 08/06/18 Range/Units 09:53 10:00 10:00 WBC (4.8-10.8) K/uL RBC 2.90 L (4.7-6.1) M/uL Hgb (14.0-18.0) g/dL POC Hgb (14.0-18.0) g/dl Hct (42-52) % POC Hct (42-52) % MCV 93.4 (80-100) fL MCH 30.0 (25-34) pg MCHC 32.1 (32-36) g/dL RDW Std Deviation 44.7 (36.4-46.3) fL RDW Coeff of Kami 13.1 (11.5-14.5) % Plt Count (130-400) K/uL MPV 8.2 (7.4-10.4) fL Immature Gran % (Auto) 0.9 % Neut % (Auto) 72.9 % Lymph % (Auto) 11.9 % Dyer % (Auto) 9.8 % Eos % (Auto) 4.0 % Baso % (Auto) 0.5 % Immature Gran # (Auto) 0.10 H (0.00-0.02) K/uL Neut # (Auto) 8.05 H (1.4-6.5) K/uL Lymph # (Auto) 1.31 (1.2-3.4) K/uL Dyer # (Auto) 1.08 H (0.11-0.59) K/uL Eos # (Auto) 0.44 (0-0.5) K/uL Baso # (Auto) 0.05 (0-0.2) K/uL Hypersegmented Neuts RBC Morphology Unremarkable PT 9.8 (9.0-12.0) Seconds INR 1.0 (0.9-1.1) APTT 25.5 (21.0-31.0) Seconds PTT Ratio 0.9 VBG pH (7.36-7.41) VBG pCO2 (38-50) mmHg VBG pO2 mmHg VBG HCO3 mmol/L VBG O2 Saturation % VBG Base Excess mEq/L Carboxyhemoglobin % THgb Barometric Pressure mm/Hg POC Sodium (135-144) mEq/L Sodium (136-145) mmol/L POC Potassium (3.3-5.0) mEq/L Potassium (3.5-5.1) mmol/L POC Chloride (101-112) mEq/L Chloride (98-107) mmol/L Carbon Dioxide (21-32) mmol/L POC Total CO2 (24-31) mEq/l Anion Gap (3-11) POC Anion Gap (16-25) mmol/L POC BUN (7-18) mg/dl BUN (7-18) mg/dl Creatinine (0.6-1.4) mg/dl POC Creatinine (0.6-1.3) mg/dl Est Cr Clr Drug Dosing ml/min Est GFR ( Amer) Est GFR (Non-Af Amer) BUN/Creatinine Ratio (10-20) Glucose (70-99) mg/dl POC Glucose 82 (70-99) POC Glucose (other) (70-99) mg/dl Calcium (8.5-10.1) mg/dl POC Ioniz Calcium Peterson (1.12-1.32) mmol/l Magnesium (1.8-2.4) mg/dl Total Bilirubin (0.2-1) mg/dl Direct Bilirubin (0-0.2) mg/dl AST (15-37) U/L ALT (12-78) U/L Alkaline Phosphatase (45-117) U/L Ammonia (11-32) umol/L Troponin I (0-0.045) ng/ml Total Protein (6.4-8.2) gm/dl Albumin (3.4-5.0) gm/dl Globulin (2.5-4.0) gm/dl Albumin/Globulin Ratio (0.9-2) Vitamin B12 (211-911) pg/ml Folate (>5.38) ng/ml TSH (0.300-4.500) uIu/ml Urine Color Urine Appearance (Clear) Urine pH (4.5-7.5) Ur Specific Campbell (1.000-1.030) Urine Protein (Negative) Urine Glucose (UA) (Negative) Urine Ketones (Negative) Urine Blood (Negative) Urine Nitrite (Negative) Urine Bilirubin (Negative) Urine Urobilinogen (Negative) Ur Leukocyte Esterase (Negative) Urine WBC (Auto) (0-5) /hpf Urine RBC (Auto) (0-4) /hpf U Hyaline Cast (Auto) (0-5) /lpf U Epithel Cells (Auto) (0-5) /lpf Urine Bacteria (Auto) (Negative) Ur Renal Epithelial Cell Amorphous Sediment (None Prsent) Urine Creatinine 2 Urine Opiates Screen (Neg) Ur Opiates Confirm Ur Oxycodone Screen Ur Methadone, Qual (Neg) Ur Methadone Urine Barbiturates (Neg) Ur Barbiturate Confirm Ur Phencyclidine Scrn Ur Phencyclidine (PCP) (Neg) Urine PCP Confirm Ur Amphetamines Screen U Amphetamines Confirm U Amphetamin/Meth Scrn (Neg) MDMA (Ecstasy) Screen (Neg) U OH-Alprazolam Confrm (CUTOFF=25) NG/ML U Benzodiazepines Scrn (Neg) U Benzodiazepine Confm 7-Amino Clonazepam (CUTOFF=25) NG/ML Ur Nordiazepam Confirm (CUTOFF=50) NG/ML U OH-ethylflurazepam (CUTOFF=50) NG/ML U Lorazepam Cnf GC/MS (CUTOFF=50) NG/ML U Oxazepam Confm GC/MS (CUTOFF=50) NG/ML Ur Temazepam Confirm (CUTOFF=50) NG/ML U OH-Triazolam Confirm (CUTOFF=50) NG/ML U OH-Midazolam Confirm (CUTOFF=50) NG/ML Urine Cocaine Ur Cocaine Metabolite (Neg) U Cocaine Metab Confirm U Marijuana (THC) Screen (Neg) U Marijuana (THC) Confirm U THC/Creatinine Ratio Ur Drug Screen Comment Ethyl Alcohol mg/dL (0-3) mg/dl Influenza Type A (PCR) (Neg) Influenza Type B (PCR) (Neg) Blood Type Antibody Screen 08/06/18 08/06/18 08/06/18 Range/Units 10:00 10:18 10:18 WBC (4.8-10.8) K/uL RBC (4.7-6.1) M/uL Hgb (14.0-18.0) g/dL POC Hgb (14.0-18.0) g/dl Hct (42-52) % POC Hct (42-52) % MCV (80-100) fL MCH (25-34) pg MCHC (32-36) g/dL RDW Std Deviation (36.4-46.3) fL RDW Coeff of Kami (11.5-14.5) % Plt Count (130-400) K/uL MPV (7.4-10.4) fL Immature Gran % (Auto) % Neut % (Auto) % Lymph % (Auto) % Dyer % (Auto) % Eos % (Auto) % Baso % (Auto) % Immature Gran # (Auto) (0.00-0.02) K/uL Neut # (Auto) (1.4-6.5) K/uL Lymph # (Auto) (1.2-3.4) K/uL Dyer # (Auto) (0.11-0.59) K/uL Eos # (Auto) (0-0.5) K/uL Baso # (Auto) (0-0.2) K/uL Hypersegmented Neuts RBC Morphology PT (9.0-12.0) Seconds INR (0.9-1.1) APTT (21.0-31.0) Seconds PTT Ratio VBG pH (7.36-7.41) VBG pCO2 (38-50) mmHg VBG pO2 mmHg VBG HCO3 mmol/L VBG O2 Saturation % VBG Base Excess mEq/L Carboxyhemoglobin % THgb Barometric Pressure mm/Hg POC Sodium (135-144) mEq/L Sodium 133 L (136-145) mmol/L POC Potassium (3.3-5.0) mEq/L Potassium 4.5 (3.5-5.1) mmol/L POC Chloride (101-112) mEq/L Chloride 99 (98-107) mmol/L Carbon Dioxide 24 (21-32) mmol/L POC Total CO2 (24-31) mEq/l Anion Gap 10.0 (3-11) POC Anion Gap (16-25) mmol/L POC BUN (7-18) mg/dl BUN 98 H (7-18) mg/dl Creatinine 4.56 H* (0.6-1.4) mg/dl POC Creatinine (0.6-1.3) mg/dl Est Cr Clr Drug Dosing 19.4 ml/min Est GFR ( Amer) 16.5 Est GFR (Non-Af Amer) 14.3 BUN/Creatinine Ratio 21.6 H (10-20) Glucose 59 L (70-99) mg/dl POC Glucose (70-99) POC Glucose (other) (70-99) mg/dl Calcium 7.7 L (8.5-10.1) mg/dl POC Ioniz Calcium Peterson (1.12-1.32) mmol/l Magnesium 2.8 H (1.8-2.4) mg/dl Total Bilirubin 0.1 L (0.2-1) mg/dl Direct Bilirubin (0-0.2) mg/dl AST 24 (15-37) U/L ALT 46 (12-78) U/L Alkaline Phosphatase 138 H (45-117) U/L Ammonia 16.0 (11-32) umol/L Troponin I < 0.015 (0-0.045) ng/ml Total Protein 6.4 (6.4-8.2) gm/dl Albumin 2.1 L (3.4-5.0) gm/dl Globulin 4.3 H (2.5-4.0) gm/dl Albumin/Globulin Ratio 0.5 L (0.9-2) Vitamin B12 (211-911) pg/ml Folate (>5.38) ng/ml TSH (0.300-4.500) uIu/ml Urine Color Urine Appearance (Clear) Urine pH (4.5-7.5) Ur Specific Campbell (1.000-1.030) Urine Protein (Negative) Urine Glucose (UA) (Negative) Urine Ketones (Negative) Urine Blood (Negative) Urine Nitrite (Negative) Urine Bilirubin (Negative) Urine Urobilinogen (Negative) Ur Leukocyte Esterase (Negative) Urine WBC (Auto) (0-5) /hpf Urine RBC (Auto) (0-4) /hpf U Hyaline Cast (Auto) (0-5) /lpf U Epithel Cells (Auto) (0-5) /lpf Urine Bacteria (Auto) (Negative) Ur Renal Epithelial Cell Amorphous Sediment (None Prsent) Urine Creatinine 2 Urine Opiates Screen (Neg) Ur Opiates Confirm Ur Oxycodone Screen Ur Methadone, Qual (Neg) Ur Methadone Urine Barbiturates (Neg) Ur Barbiturate Confirm Ur Phencyclidine Scrn Ur Phencyclidine (PCP) (Neg) Urine PCP Confirm Ur Amphetamines Screen U Amphetamines Confirm U Amphetamin/Meth Scrn (Neg) MDMA (Ecstasy) Screen (Neg) U OH-Alprazolam Confrm (CUTOFF=25) NG/ML U Benzodiazepines Scrn (Neg) U Benzodiazepine Confm 7-Amino Clonazepam (CUTOFF=25) NG/ML Ur Nordiazepam Confirm (CUTOFF=50) NG/ML U OH-ethylflurazepam (CUTOFF=50) NG/ML U Lorazepam Cnf GC/MS (CUTOFF=50) NG/ML U Oxazepam Confm GC/MS (CUTOFF=50) NG/ML Ur Temazepam Confirm (CUTOFF=50) NG/ML U OH-Triazolam Confirm (CUTOFF=50) NG/ML U OH-Midazolam Confirm (CUTOFF=50) NG/ML Urine Cocaine Ur Cocaine Metabolite (Neg) U Cocaine Metab Confirm U Marijuana (THC) Screen (Neg) U Marijuana (THC) Confirm U THC/Creatinine Ratio Ur Drug Screen Comment Ethyl Alcohol mg/dL < 3.0 (0-3) mg/dl Influenza Type A (PCR) (Neg) Influenza Type B (PCR) (Neg) Blood Type Antibody Screen 08/06/18 08/06/18 08/06/18 Range/Units 10:18 10:18 10:35 WBC (4.8-10.8) K/uL RBC (4.7-6.1) M/uL Hgb (14.0-18.0) g/dL POC Hgb 7.8 L (14.0-18.0) g/dl Hct (42-52) % POC Hct 23 L (42-52) % MCV (80-100) fL MCH (25-34) pg MCHC (32-36) g/dL RDW Std Deviation (36.4-46.3) fL RDW Coeff of Kami (11.5-14.5) % Plt Count (130-400) K/uL MPV (7.4-10.4) fL Immature Gran % (Auto) % Neut % (Auto) % Lymph % (Auto) % Dyer % (Auto) % Eos % (Auto) % Baso % (Auto) % Immature Gran # (Auto) (0.00-0.02) K/uL Neut # (Auto) (1.4-6.5) K/uL Lymph # (Auto) (1.2-3.4) K/uL Dyer # (Auto) (0.11-0.59) K/uL Eos # (Auto) (0-0.5) K/uL Baso # (Auto) (0-0.2) K/uL Hypersegmented Neuts RBC Morphology PT (9.0-12.0) Seconds INR (0.9-1.1) APTT (21.0-31.0) Seconds PTT Ratio VBG pH 7.42 H (7.36-7.41) VBG pCO2 38 (38-50) mmHg VBG pO2 52 mmHg VBG HCO3 24 mmol/L VBG O2 Saturation 84.3 % VBG Base Excess -0.2 mEq/L Carboxyhemoglobin 0.0 % THgb Barometric Pressure 737.0 mm/Hg POC Sodium 133 L (135-144) mEq/L Sodium (136-145) mmol/L POC Potassium 4.6 (3.3-5.0) mEq/L Potassium (3.5-5.1) mmol/L POC Chloride 99 L (101-112) mEq/L Chloride (98-107) mmol/L Carbon Dioxide (21-32) mmol/L POC Total CO2 26 (24-31) mEq/l Anion Gap (3-11) POC Anion Gap 14.0 L (16-25) mmol/L POC BUN 95 H (7-18) mg/dl BUN (7-18) mg/dl Creatinine (0.6-1.4) mg/dl POC Creatinine 4.7 H* (0.6-1.3) mg/dl Est Cr Clr Drug Dosing ml/min Est GFR ( Amer) Est GFR (Non-Af Amer) BUN/Creatinine Ratio (10-20) Glucose (70-99) mg/dl POC Glucose (70-99) POC Glucose (other) 50 L* (70-99) mg/dl Calcium (8.5-10.1) mg/dl POC Ioniz Calcium Peterson 0.99 L (1.12-1.32) mmol/l Magnesium (1.8-2.4) mg/dl Total Bilirubin (0.2-1) mg/dl Direct Bilirubin (0-0.2) mg/dl AST (15-37) U/L ALT (12-78) U/L Alkaline Phosphatase (45-117) U/L Ammonia (11-32) umol/L Troponin I (0-0.045) ng/ml Total Protein (6.4-8.2) gm/dl Albumin (3.4-5.0) gm/dl Globulin (2.5-4.0) gm/dl Albumin/Globulin Ratio (0.9-2) Vitamin B12 (211-911) pg/ml Folate (>5.38) ng/ml TSH (0.300-4.500) uIu/ml Urine Color Urine Appearance (Clear) Urine pH (4.5-7.5) Ur Specific Campbell (1.000-1.030) Urine Protein (Negative) Urine Glucose (UA) (Negative) Urine Ketones (Negative) Urine Blood (Negative) Urine Nitrite (Negative) Urine Bilirubin (Negative) Urine Urobilinogen (Negative) Ur Leukocyte Esterase (Negative) Urine WBC (Auto) (0-5) /hpf Urine RBC (Auto) (0-4) /hpf U Hyaline Cast (Auto) (0-5) /lpf U Epithel Cells (Auto) (0-5) /lpf Urine Bacteria (Auto) (Negative) Ur Renal Epithelial Cell Amorphous Sediment (None Prsent) Urine Creatinine 2 Urine Opiates Screen (Neg) Ur Opiates Confirm Ur Oxycodone Screen Ur Methadone, Qual (Neg) Ur Methadone Urine Barbiturates (Neg) Ur Barbiturate Confirm Ur Phencyclidine Scrn Ur Phencyclidine (PCP) (Neg) Urine PCP Confirm Ur Amphetamines Screen U Amphetamines Confirm U Amphetamin/Meth Scrn (Neg) MDMA (Ecstasy) Screen (Neg) U OH-Alprazolam Confrm (CUTOFF=25) NG/ML U Benzodiazepines Scrn (Neg) U Benzodiazepine Confm 7-Amino Clonazepam (CUTOFF=25) NG/ML Ur Nordiazepam Confirm (CUTOFF=50) NG/ML U OH-ethylflurazepam (CUTOFF=50) NG/ML U Lorazepam Cnf GC/MS (CUTOFF=50) NG/ML U Oxazepam Confm GC/MS (CUTOFF=50) NG/ML Ur Temazepam Confirm (CUTOFF=50) NG/ML U OH-Triazolam Confirm (CUTOFF=50) NG/ML U OH-Midazolam Confirm (CUTOFF=50) NG/ML Urine Cocaine Ur Cocaine Metabolite (Neg) U Cocaine Metab Confirm U Marijuana (THC) Screen (Neg) U Marijuana (THC) Confirm U THC/Creatinine Ratio Ur Drug Screen Comment Ethyl Alcohol mg/dL (0-3) mg/dl Influenza Type A (PCR) (Neg) Influenza Type B (PCR) (Neg) Blood Type Antibody Screen 08/06/18 08/06/18 08/06/18 Range/Units 11:09 11:27 13:45 WBC (4.8-10.8) K/uL RBC (4.7-6.1) M/uL Hgb (14.0-18.0) g/dL POC Hgb (14.0-18.0) g/dl Hct (42-52) % POC Hct (42-52) % MCV (80-100) fL MCH (25-34) pg MCHC (32-36) g/dL RDW Std Deviation (36.4-46.3) fL RDW Coeff of Kami (11.5-14.5) % Plt Count (130-400) K/uL MPV (7.4-10.4) fL Immature Gran % (Auto) % Neut % (Auto) % Lymph % (Auto) % Dyer % (Auto) % Eos % (Auto) % Baso % (Auto) % Immature Gran # (Auto) (0.00-0.02) K/uL Neut # (Auto) (1.4-6.5) K/uL Lymph # (Auto) (1.2-3.4) K/uL Dyer # (Auto) (0.11-0.59) K/uL Eos # (Auto) (0-0.5) K/uL Baso # (Auto) (0-0.2) K/uL Hypersegmented Neuts RBC Morphology PT (9.0-12.0) Seconds INR (0.9-1.1) APTT (21.0-31.0) Seconds PTT Ratio VBG pH (7.36-7.41) VBG pCO2 (38-50) mmHg VBG pO2 mmHg VBG HCO3 mmol/L VBG O2 Saturation % VBG Base Excess mEq/L Carboxyhemoglobin % THgb Barometric Pressure mm/Hg POC Sodium (135-144) mEq/L Sodium (136-145) mmol/L POC Potassium (3.3-5.0) mEq/L Potassium (3.5-5.1) mmol/L POC Chloride (101-112) mEq/L Chloride (98-107) mmol/L Carbon Dioxide (21-32) mmol/L POC Total CO2 (24-31) mEq/l Anion Gap (3-11) POC Anion Gap (16-25) mmol/L POC BUN (7-18) mg/dl BUN (7-18) mg/dl Creatinine (0.6-1.4) mg/dl POC Creatinine (0.6-1.3) mg/dl Est Cr Clr Drug Dosing ml/min Est GFR ( Amer) Est GFR (Non-Af Amer) BUN/Creatinine Ratio (10-20) Glucose (70-99) mg/dl POC Glucose 98 69 L* (70-99) POC Glucose (other) (70-99) mg/dl Calcium (8.5-10.1) mg/dl POC Ioniz Calcium Peterson (1.12-1.32) mmol/l Magnesium (1.8-2.4) mg/dl Total Bilirubin (0.2-1) mg/dl Direct Bilirubin (0-0.2) mg/dl AST (15-37) U/L ALT (12-78) U/L Alkaline Phosphatase (45-117) U/L Ammonia (11-32) umol/L Troponin I (0-0.045) ng/ml Total Protein (6.4-8.2) gm/dl Albumin (3.4-5.0) gm/dl Globulin (2.5-4.0) gm/dl Albumin/Globulin Ratio (0.9-2) Vitamin B12 (211-911) pg/ml Folate (>5.38) ng/ml TSH (0.300-4.500) uIu/ml Urine Color Urine Appearance (Clear) Urine pH (4.5-7.5) Ur Specific Campbell (1.000-1.030) Urine Protein (Negative) Urine Glucose (UA) (Negative) Urine Ketones (Negative) Urine Blood (Negative) Urine Nitrite (Negative) Urine Bilirubin (Negative) Urine Urobilinogen (Negative) Ur Leukocyte Esterase (Negative) Urine WBC (Auto) (0-5) /hpf Urine RBC (Auto) (0-4) /hpf U Hyaline Cast (Auto) (0-5) /lpf U Epithel Cells (Auto) (0-5) /lpf Urine Bacteria (Auto) (Negative) Ur Renal Epithelial Cell Amorphous Sediment (None Prsent) Urine Creatinine 2 Urine Opiates Screen (Neg) Ur Opiates Confirm Ur Oxycodone Screen Ur Methadone, Qual (Neg) Ur Methadone Urine Barbiturates (Neg) Ur Barbiturate Confirm Ur Phencyclidine Scrn Ur Phencyclidine (PCP) (Neg) Urine PCP Confirm Ur Amphetamines Screen U Amphetamines Confirm U Amphetamin/Meth Scrn (Neg) MDMA (Ecstasy) Screen (Neg) U OH-Alprazolam Confrm (CUTOFF=25) NG/ML U Benzodiazepines Scrn (Neg) U Benzodiazepine Confm 7-Amino Clonazepam (CUTOFF=25) NG/ML Ur Nordiazepam Confirm (CUTOFF=50) NG/ML U OH-ethylflurazepam (CUTOFF=50) NG/ML U Lorazepam Cnf GC/MS (CUTOFF=50) NG/ML U Oxazepam Confm GC/MS (CUTOFF=50) NG/ML Ur Temazepam Confirm (CUTOFF=50) NG/ML U OH-Triazolam Confirm (CUTOFF=50) NG/ML U OH-Midazolam Confirm (CUTOFF=50) NG/ML Urine Cocaine Ur Cocaine Metabolite (Neg) U Cocaine Metab Confirm U Marijuana (THC) Screen (Neg) U Marijuana (THC) Confirm U THC/Creatinine Ratio Ur Drug Screen Comment Ethyl Alcohol mg/dL (0-3) mg/dl Influenza Type A (PCR) (Neg) Influenza Type B (PCR) (Neg) Blood Type B Negative Antibody Screen NEGATIVE 08/06/18 08/06/1808/06/19 Range/Units 13:46 14:07 14:35 WBC (4.8-10.8) K/uL RBC (4.7-6.1) M/uL Hgb (14.0-18.0) g/dL POC Hgb (14.0-18.0) g/dl Hct (42-52) % POC Hct (42-52) % MCV (80-100) fL MCH (25-34) pg MCHC (32-36) g/dL RDW Std Deviation (36.4-46.3) fL RDW Coeff of Kami (11.5-14.5) % Plt Count (130-400) K/uL MPV (7.4-10.4) fL Immature Gran % (Auto) % Neut % (Auto) % Lymph % (Auto) % Dyer % (Auto) % Eos % (Auto) % Baso % (Auto) % Immature Gran # (Auto) (0.00-0.02) K/uL Neut # (Auto) (1.4-6.5) K/uL Lymph # (Auto) (1.2-3.4) K/uL Dyer # (Auto) (0.11-0.59) K/uL Eos # (Auto) (0-0.5) K/uL Baso # (Auto) (0-0.2) K/uL Hypersegmented Neuts RBC Morphology PT (9.0-12.0) Seconds INR (0.9-1.1) APTT (21.0-31.0) Seconds PTT Ratio VBG pH (7.36-7.41) VBG pCO2 (38-50) mmHg VBG pO2 mmHg VBG HCO3 mmol/L VBG O2 Saturation % VBG Base Excess mEq/L Carboxyhemoglobin % THgb Barometric Pressure mm/Hg POC Sodium (135-144) mEq/L Sodium (136-145) mmol/L POC Potassium (3.3-5.0) mEq/L Potassium (3.5-5.1) mmol/L POC Chloride (101-112) mEq/L Chloride (98-107) mmol/L Carbon Dioxide (21-32) mmol/L POC Total CO2 (24-31) mEq/l Anion Gap (3-11) POC Anion Gap (16-25) mmol/L POC BUN (7-18) mg/dl BUN (7-18) mg/dl Creatinine (0.6-1.4) mg/dl POC Creatinine (0.6-1.3) mg/dl Est Cr Clr Drug Dosing ml/min Est GFR ( Amer) Est GFR (Non-Af Amer) BUN/Creatinine Ratio (10-20) Glucose (70-99) mg/dl POC Glucose 58 L* 85 (70-99) POC Glucose (other) (70-99) mg/dl Calcium (8.5-10.1) mg/dl POC Ioniz Calcium Peterson (1.12-1.32) mmol/l Magnesium (1.8-2.4) mg/dl Total Bilirubin (0.2-1) mg/dl Direct Bilirubin (0-0.2) mg/dl AST (15-37) U/L ALT (12-78) U/L Alkaline Phosphatase (45-117) U/L Ammonia (11-32) umol/L Troponin I (0-0.045) ng/ml Total Protein (6.4-8.2) gm/dl Albumin (3.4-5.0) gm/dl Globulin (2.5-4.0) gm/dl Albumin/Globulin Ratio (0.9-2) Vitamin B12 (211-911) pg/ml Folate (>5.38) ng/ml TSH (0.300-4.500) uIu/ml Urine Color Urine Appearance (Clear) Urine pH (4.5-7.5) Ur Specific Campbell (1.000-1.030) Urine Protein (Negative) Urine Glucose (UA) (Negative) Urine Ketones (Negative) Urine Blood (Negative) Urine Nitrite (Negative) Urine Bilirubin (Negative) Urine Urobilinogen (Negative) Ur Leukocyte Esterase (Negative) Urine WBC (Auto) (0-5) /hpf Urine RBC (Auto) (0-4) /hpf U Hyaline Cast (Auto) (0-5) /lpf U Epithel Cells (Auto) (0-5) /lpf Urine Bacteria (Auto) (Negative) Ur Renal Epithelial Cell Amorphous Sediment (None Prsent) Urine Creatinine 2 Urine Opiates Screen (Neg) Ur Opiates Confirm Ur Oxycodone Screen Ur Methadone, Qual (Neg) Ur Methadone Urine Barbiturates (Neg) Ur Barbiturate Confirm Ur Phencyclidine Scrn Ur Phencyclidine (PCP) (Neg) Urine PCP Confirm Ur Amphetamines Screen U Amphetamines Confirm U Amphetamin/Meth Scrn (Neg) MDMA (Ecstasy) Screen (Neg) U OH-Alprazolam Confrm (CUTOFF=25) NG/ML U Benzodiazepines Scrn (Neg) U Benzodiazepine Confm 7-Amino Clonazepam (CUTOFF=25) NG/ML Ur Nordiazepam Confirm (CUTOFF=50) NG/ML U OH-ethylflurazepam (CUTOFF=50) NG/ML U Lorazepam Cnf GC/MS (CUTOFF=50) NG/ML U Oxazepam Confm GC/MS (CUTOFF=50) NG/ML Ur Temazepam Confirm (CUTOFF=50) NG/ML U OH-Triazolam Confirm (CUTOFF=50) NG/ML U OH-Midazolam Confirm (CUTOFF=50) NG/ML Urine Cocaine Ur Cocaine Metabolite (Neg) U Cocaine Metab Confirm U Marijuana (THC) Screen (Neg) U Marijuana (THC) Confirm U THC/Creatinine Ratio Ur Drug Screen Comment Ethyl Alcohol mg/dL (0-3) mg/dl Influenza Type A (PCR) Neg for Influ A (Neg) Influenza Type B (PCR) Neg for Influ B (Neg) Blood Type Antibody Screen 08/06/18 08/06/18 08/06/18 Range/Units 15:54 16:28 21:41 WBC (4.8-10.8) K/uL RBC (4.7-6.1) M/uL Hgb (14.0-18.0) g/dL POC Hgb (14.0-18.0) g/dl Hct (42-52) % POC Hct (42-52) % MCV (80-100) fL MCH (25-34) pg MCHC (32-36) g/dL RDW Std Deviation (36.4-46.3) fL RDW Coeff of Kami (11.5-14.5) % Plt Count (130-400) K/uL MPV (7.4-10.4) fL Immature Gran % (Auto) % Neut % (Auto) % Lymph % (Auto) % Dyer % (Auto) % Eos % (Auto) % Baso % (Auto) % Immature Gran # (Auto) (0.00-0.02) K/uL Neut # (Auto) (1.4-6.5) K/uL Lymph # (Auto) (1.2-3.4) K/uL Dyer # (Auto) (0.11-0.59) K/uL Eos # (Auto) (0-0.5) K/uL Baso # (Auto) (0-0.2) K/uL Hypersegmented Neuts RBC Morphology PT (9.0-12.0) Seconds INR (0.9-1.1) APTT (21.0-31.0) Seconds PTT Ratio VBG pH (7.36-7.41) VBG pCO2 (38-50) mmHg VBG pO2 mmHg VBG HCO3 mmol/L VBG O2 Saturation % VBG Base Excess mEq/L Carboxyhemoglobin % THgb Barometric Pressure mm/Hg POC Sodium (135-144) mEq/L Sodium 133 L (136-145) mmol/L POC Potassium (3.3-5.0) mEq/L Potassium 4.8 (3.5-5.1) mmol/L POC Chloride (101-112) mEq/L Chloride 99 (98-107) mmol/L Carbon Dioxide 25 (21-32) mmol/L POC Total CO2 (24-31) mEq/l Anion Gap 9.0 (3-11) POC Anion Gap (16-25) mmol/L POC BUN (7-18) mg/dl BUN 103 H (7-18) mg/dl Creatinine 4.70 H* (0.6-1.4) mg/dl POC Creatinine (0.6-1.3) mg/dl Est Cr Clr Drug Dosing 18.8 ml/min Est GFR ( Amer) 15.9 Est GFR (Non-Af Amer) 13.7 BUN/Creatinine Ratio 21.9 H (10-20) Glucose 181 H (70-99) mg/dl POC Glucose 219 H 168 H (70-99) POC Glucose (other) (70-99) mg/dl Calcium 7.8 L (8.5-10.1) mg/dl POC Ioniz Calcium Peterson (1.12-1.32) mmol/l Magnesium (1.8-2.4) mg/dl Total Bilirubin (0.2-1) mg/dl Direct Bilirubin (0-0.2) mg/dl AST (15-37) U/L ALT (12-78) U/L Alkaline Phosphatase (45-117) U/L Ammonia (11-32) umol/L Troponin I < 0.015 (0-0.045) ng/ml Total Protein (6.4-8.2) gm/dl Albumin (3.4-5.0) gm/dl Globulin (2.5-4.0) gm/dl Albumin/Globulin Ratio (0.9-2) Vitamin B12 (211-911) pg/ml Folate (>5.38) ng/ml TSH 3.960 (0.300-4.500) uIu/ml Urine Color Urine Appearance (Clear) Urine pH (4.5-7.5) Ur Specific Campbell (1.000-1.030) Urine Protein (Negative) Urine Glucose (UA) (Negative) Urine Ketones (Negative) Urine Blood (Negative) Urine Nitrite (Negative) Urine Bilirubin (Negative) Urine Urobilinogen (Negative) Ur Leukocyte Esterase (Negative) Urine WBC (Auto) (0-5) /hpf Urine RBC (Auto) (0-4) /hpf U Hyaline Cast (Auto) (0-5) /lpf U Epithel Cells (Auto) (0-5) /lpf Urine Bacteria (Auto) (Negative) Ur Renal Epithelial Cell Amorphous Sediment (None Prsent) Urine Creatinine 2 Urine Opiates Screen (Neg) Ur Opiates Confirm Ur Oxycodone Screen Ur Methadone, Qual (Neg) Ur Methadone Urine Barbiturates (Neg) Ur Barbiturate Confirm Ur Phencyclidine Scrn Ur Phencyclidine (PCP) (Neg) Urine PCP Confirm Ur Amphetamines Screen U Amphetamines Confirm U Amphetamin/Meth Scrn (Neg) MDMA (Ecstasy) Screen (Neg) U OH-Alprazolam Confrm (CUTOFF=25) NG/ML U Benzodiazepines Scrn (Neg) U Benzodiazepine Confm 7-Amino Clonazepam (CUTOFF=25) NG/ML Ur Nordiazepam Confirm (CUTOFF=50) NG/ML U OH-ethylflurazepam (CUTOFF=50) NG/ML U Lorazepam Cnf GC/MS (CUTOFF=50) NG/ML U Oxazepam Confm GC/MS (CUTOFF=50) NG/ML Ur Temazepam Confirm (CUTOFF=50) NG/ML U OH-Triazolam Confirm (CUTOFF=50) NG/ML U OH-Midazolam Confirm (CUTOFF=50) NG/ML Urine Cocaine Ur Cocaine Metabolite (Neg) U Cocaine Metab Confirm U Marijuana (THC) Screen (Neg) U Marijuana (THC) Confirm U THC/Creatinine Ratio Ur Drug Screen Comment Ethyl Alcohol mg/dL (0-3) mg/dl Influenza Type A (PCR) (Neg) Influenza Type B (PCR) (Neg) Blood Type Antibody Screen 08/07/18 08/07/18 08/07/18 Range/Units 05:32 05:32 07:17 WBC (4.8-10.8) K/uL RBC 2.63 L (4.7-6.1) M/uL Hgb (14.0-18.0) g/dL POC Hgb (14.0-18.0) g/dl Hct (42-52) % POC Hct (42-52) % MCV 92.8 (80-100) fL MCH 30.0 (25-34) pg MCHC 32.4 (32-36) g/dL RDW Std Deviation 44.3 (36.4-46.3) fL RDW Coeff of Kami 13.0 (11.5-14.5) % Plt Count (130-400) K/uL MPV 8.1 (7.4-10.4) fL Immature Gran % (Auto) % Neut % (Auto) % Lymph % (Auto) % Dyer % (Auto) % Eos % (Auto) % Baso % (Auto) % Immature Gran # (Auto) (0.00-0.02) K/uL Neut # (Auto) (1.4-6.5) K/uL Lymph # (Auto) (1.2-3.4) K/uL Dyer # (Auto) (0.11-0.59) K/uL Eos # (Auto) (0-0.5) K/uL Baso # (Auto) (0-0.2) K/uL Hypersegmented Neuts RBC Morphology PT (9.0-12.0) Seconds INR (0.9-1.1) APTT (21.0-31.0) Seconds PTT Ratio VBG pH (7.36-7.41) VBG pCO2 (38-50) mmHg VBG pO2 mmHg VBG HCO3 mmol/L VBG O2 Saturation % VBG Base Excess mEq/L Carboxyhemoglobin % THgb Barometric Pressure mm/Hg POC Sodium (135-144) mEq/L Sodium 135 L (136-145) mmol/L POC Potassium (3.3-5.0) mEq/L Potassium 4.5 (3.5-5.1) mmol/L POC Chloride (101-112) mEq/L Chloride 101 (98-107) mmol/L Carbon Dioxide 26 (21-32) mmol/L POC Total CO2 (24-31) mEq/l Anion Gap 8.0 (3-11) POC Anion Gap (16-25) mmol/L POC BUN (7-18) mg/dl BUN 106 H (7-18) mg/dl Creatinine 5.24 H* D (0.6-1.4) mg/dl POC Creatinine (0.6-1.3) mg/dl Est Cr Clr Drug Dosing 16.9 ml/min Est GFR ( Amer) 14.0 Est GFR (Non-Af Amer) 12.0 BUN/Creatinine Ratio 20.6 H (10-20) Glucose 116 H (70-99) mg/dl POC Glucose 140 H (70-99) POC Glucose (other) (70-99) mg/dl Calcium 7.4 L (8.5-10.1) mg/dl POC Ioniz Calcium Peterson (1.12-1.32) mmol/l Magnesium (1.8-2.4) mg/dl Total Bilirubin (0.2-1) mg/dl Direct Bilirubin (0-0.2) mg/dl AST (15-37) U/L ALT (12-78) U/L Alkaline Phosphatase (45-117) U/L Ammonia (11-32) umol/L Troponin I (0-0.045) ng/ml Total Protein (6.4-8.2) gm/dl Albumin (3.4-5.0) gm/dl Globulin (2.5-4.0) gm/dl Albumin/Globulin Ratio (0.9-2) Vitamin B12 (211-911) pg/ml Folate (>5.38) ng/ml TSH (0.300-4.500) uIu/ml Urine Color Urine Appearance (Clear) Urine pH (4.5-7.5) Ur Specific Campbell (1.000-1.030) Urine Protein (Negative) Urine Glucose (UA) (Negative) Urine Ketones (Negative) Urine Blood (Negative) Urine Nitrite (Negative) Urine Bilirubin (Negative) Urine Urobilinogen (Negative) Ur Leukocyte Esterase (Negative) Urine WBC (Auto) (0-5) /hpf Urine RBC (Auto) (0-4) /hpf U Hyaline Cast (Auto) (0-5) /lpf U Epithel Cells (Auto) (0-5) /lpf Urine Bacteria (Auto) (Negative) Ur Renal Epithelial Cell Amorphous Sediment (None Prsent) Urine Creatinine 2 Urine Opiates Screen (Neg) Ur Opiates Confirm Ur Oxycodone Screen Ur Methadone, Qual (Neg) Ur Methadone Urine Barbiturates (Neg) Ur Barbiturate Confirm Ur Phencyclidine Scrn Ur Phencyclidine (PCP) (Neg) Urine PCP Confirm Ur Amphetamines Screen U Amphetamines Confirm U Amphetamin/Meth Scrn (Neg) MDMA (Ecstasy) Screen (Neg) U OH-Alprazolam Confrm (CUTOFF=25) NG/ML U Benzodiazepines Scrn (Neg) U Benzodiazepine Confm 7-Amino Clonazepam (CUTOFF=25) NG/ML Ur Nordiazepam Confirm (CUTOFF=50) NG/ML U OH-ethylflurazepam (CUTOFF=50) NG/ML U Lorazepam Cnf GC/MS (CUTOFF=50) NG/ML U Oxazepam Confm GC/MS (CUTOFF=50) NG/ML Ur Temazepam Confirm (CUTOFF=50) NG/ML U OH-Triazolam Confirm (CUTOFF=50) NG/ML U OH-Midazolam Confirm (CUTOFF=50) NG/ML Urine Cocaine Ur Cocaine Metabolite (Neg) U Cocaine Metab Confirm U Marijuana (THC) Screen (Neg) U Marijuana (THC) Confirm U THC/Creatinine Ratio Ur Drug Screen Comment Ethyl Alcohol mg/dL (0-3) mg/dl Influenza Type A (PCR) (Neg) Influenza Type B (PCR) (Neg) Blood Type Antibody Screen 08/07/18 08/07/18 08/07/18 Range/Units 10:35 10:35 10:35 WBC (4.8-10.8) K/uL RBC (4.7-6.1) M/uL Hgb (14.0-18.0) g/dL POC Hgb (14.0-18.0) g/dl Hct (42-52) % POC Hct (42-52) % MCV (80-100) fL MCH (25-34) pg MCHC (32-36) g/dL RDW Std Deviation (36.4-46.3) fL RDW Coeff of Kami (11.5-14.5) % Plt Count (130-400) K/uL MPV (7.4-10.4) fL Immature Gran % (Auto) % Neut % (Auto) % Lymph % (Auto) % Dyer % (Auto) % Eos % (Auto) % Baso % (Auto) % Immature Gran # (Auto) (0.00-0.02) K/uL Neut # (Auto) (1.4-6.5) K/uL Lymph # (Auto) (1.2-3.4) K/uL Dyer # (Auto) (0.11-0.59) K/uL Eos # (Auto) (0-0.5) K/uL Baso # (Auto) (0-0.2) K/uL Hypersegmented Neuts RBC Morphology PT (9.0-12.0) Seconds INR (0.9-1.1) APTT (21.0-31.0) Seconds PTT Ratio VBG pH (7.36-7.41) VBG pCO2 (38-50) mmHg VBG pO2 mmHg VBG HCO3 mmol/L VBG O2 Saturation % VBG Base Excess mEq/L Carboxyhemoglobin % THgb Barometric Pressure mm/Hg POC Sodium (135-144) mEq/L Sodium (136-145) mmol/L POC Potassium (3.3-5.0) mEq/L Potassium (3.5-5.1) mmol/L POC Chloride (101-112) mEq/L Chloride (98-107) mmol/L Carbon Dioxide (21-32) mmol/L POC Total CO2 (24-31) mEq/l Anion Gap (3-11) POC Anion Gap (16-25) mmol/L POC BUN (7-18) mg/dl BUN (7-18) mg/dl Creatinine (0.6-1.4) mg/dl POC Creatinine (0.6-1.3) mg/dl Est Cr Clr Drug Dosing ml/min Est GFR ( Amer) Est GFR (Non-Af Amer) BUN/Creatinine Ratio (10-20) Glucose (70-99) mg/dl POC Glucose (70-99) POC Glucose (other) (70-99) mg/dl Calcium (8.5-10.1) mg/dl POC Ioniz Calcium Peterson (1.12-1.32) mmol/l Magnesium (1.8-2.4) mg/dl Total Bilirubin (0.2-1) mg/dl Direct Bilirubin (0-0.2) mg/dl AST (15-37) U/L ALT (12-78) U/L Alkaline Phosphatase (45-117) U/L Ammonia (11-32) umol/L Troponin I (0-0.045) ng/ml Total Protein (6.4-8.2) gm/dl Albumin (3.4-5.0) gm/dl Globulin (2.5-4.0) gm/dl Albumin/Globulin Ratio (0.9-2) Vitamin B12 (211-911) pg/ml Folate (>5.38) ng/ml TSH (0.300-4.500) uIu/ml Urine Color Yellow Urine Appearance Clear (Clear) Urine pH 5.5 (4.5-7.5) Ur Specific Campbell 1.014 (1.000-1.030) Urine Protein 2+ H (Negative) Urine Glucose (UA) Negative (Negative) Urine Ketones Negative (Negative) Urine Blood Negative (Negative) Urine Nitrite Negative (Negative) Urine Bilirubin Negative (Negative) Urine Urobilinogen Negative (Negative) Ur Leukocyte Esterase Negative (Negative) Urine WBC (Auto) 1-5 (0-5) /hpf Urine RBC (Auto) 0-4 (0-4) /hpf U Hyaline Cast (Auto) 1-5 (0-5) /lpf U Epithel Cells (Auto) >30 H (0-5) /lpf Urine Bacteria (Auto) Negative (Negative) Ur Renal Epithelial Cell Not Reportable Amorphous Sediment Present H (None Prsent) Urine Creatinine 2 Cancelled Urine Opiates Screen Neg Cancelled (Neg) Ur Opiates Confirm Cancelled Ur Oxycodone Screen Cancelled Ur Methadone, Qual Neg Cancelled (Neg) Ur Methadone Cancelled Urine Barbiturates Neg Cancelled (Neg) Ur Barbiturate Confirm Cancelled Ur Phencyclidine Scrn Cancelled Ur Phencyclidine (PCP) Neg (Neg) Urine PCP Confirm Cancelled Ur Amphetamines Screen Cancelled U Amphetamines Confirm Cancelled U Amphetamin/Meth Scrn Neg (Neg) MDMA (Ecstasy) Screen Neg (Neg) U OH-Alprazolam Confrm (CUTOFF=25) NG/ML U Benzodiazepines Scrn Pos H Cancelled (Neg) U Benzodiazepine Confm Cancelled 7-Amino Clonazepam (CUTOFF=25) NG/ML Ur Nordiazepam Confirm (CUTOFF=50) NG/ML U OH-ethylflurazepam (CUTOFF=50) NG/ML U Lorazepam Cnf GC/MS (CUTOFF=50) NG/ML U Oxazepam Confm GC/MS (CUTOFF=50) NG/ML Ur Temazepam Confirm (CUTOFF=50) NG/ML U OH-Triazolam Confirm (CUTOFF=50) NG/ML U OH-Midazolam Confirm (CUTOFF=50) NG/ML Urine Cocaine Cancelled Ur Cocaine Metabolite Neg (Neg) U Cocaine Metab Confirm Cancelled U Marijuana (THC) Screen Neg Cancelled (Neg) U Marijuana (THC) Confirm Cancelled U THC/Creatinine Ratio Cancelled Ur Drug Screen Comment Cancelled Ethyl Alcohol mg/dL (0-3) mg/dl Influenza Type A (PCR) (Neg) Influenza Type B (PCR) (Neg) Blood Type Antibody Screen 08/07/18 08/07/18 08/07/18 Range/Units 10:35 10:52 11:24 WBC (4.8-10.8) K/uL RBC (4.7-6.1) M/uL Hgb (14.0-18.0) g/dL POC Hgb (14.0-18.0) g/dl Hct (42-52) % POC Hct (42-52) % MCV (80-100) fL MCH (25-34) pg MCHC (32-36) g/dL RDW Std Deviation (36.4-46.3) fL RDW Coeff of Kami (11.5-14.5) % Plt Count (130-400) K/uL MPV (7.4-10.4) fL Immature Gran % (Auto) % Neut % (Auto) % Lymph % (Auto) % Dyer % (Auto) % Eos % (Auto) % Baso % (Auto) % Immature Gran # (Auto) (0.00-0.02) K/uL Neut # (Auto) (1.4-6.5) K/uL Lymph # (Auto) (1.2-3.4) K/uL Dyer # (Auto) (0.11-0.59) K/uL Eos # (Auto) (0-0.5) K/uL Baso # (Auto) (0-0.2) K/uL Hypersegmented Neuts RBC Morphology PT (9.0-12.0) Seconds INR (0.9-1.1) APTT (21.0-31.0) Seconds PTT Ratio VBG pH (7.36-7.41) VBG pCO2 (38-50) mmHg VBG pO2 mmHg VBG HCO3 mmol/L VBG O2 Saturation % VBG Base Excess mEq/L Carboxyhemoglobin % THgb Barometric Pressure mm/Hg POC Sodium (135-144) mEq/L Sodium (136-145) mmol/L POC Potassium (3.3-5.0) mEq/L Potassium (3.5-5.1) mmol/L POC Chloride (101-112) mEq/L Chloride (98-107) mmol/L Carbon Dioxide (21-32) mmol/L POC Total CO2 (24-31) mEq/l Anion Gap (3-11) POC Anion Gap (16-25) mmol/L POC BUN (7-18) mg/dl BUN (7-18) mg/dl Creatinine (0.6-1.4) mg/dl POC Creatinine (0.6-1.3) mg/dl Est Cr Clr Drug Dosing ml/min Est GFR ( Amer) Est GFR (Non-Af Amer) BUN/Creatinine Ratio (10-20) Glucose (70-99) mg/dl POC Glucose 183 H 191 H (70-99) POC Glucose (other) (70-99) mg/dl Calcium (8.5-10.1) mg/dl POC Ioniz Calcium Peterson (1.12-1.32) mmol/l Magnesium (1.8-2.4) mg/dl Total Bilirubin (0.2-1) mg/dl Direct Bilirubin (0-0.2) mg/dl AST (15-37) U/L ALT (12-78) U/L Alkaline Phosphatase (45-117) U/L Ammonia (11-32) umol/L Troponin I (0-0.045) ng/ml Total Protein (6.4-8.2) gm/dl Albumin (3.4-5.0) gm/dl Globulin (2.5-4.0) gm/dl Albumin/Globulin Ratio (0.9-2) Vitamin B12 (211-911) pg/ml Folate (>5.38) ng/ml TSH (0.300-4.500) uIu/ml Urine Color Urine Appearance (Clear) Urine pH (4.5-7.5) Ur Specific Campbell (1.000-1.030) Urine Protein (Negative) Urine Glucose (UA) (Negative) Urine Ketones (Negative) Urine Blood (Negative) Urine Nitrite (Negative) Urine Bilirubin (Negative) Urine Urobilinogen (Negative) Ur Leukocyte Esterase (Negative) Urine WBC (Auto) (0-5) /hpf Urine RBC (Auto) (0-4) /hpf U Hyaline Cast (Auto) (0-5) /lpf U Epithel Cells (Auto) (0-5) /lpf Urine Bacteria (Auto) (Negative) Ur Renal Epithelial Cell Amorphous Sediment (None Prsent) Urine Creatinine 2 Urine Opiates Screen (Neg) Ur Opiates Confirm Ur Oxycodone Screen Ur Methadone, Qual (Neg) Ur Methadone Urine Barbiturates (Neg) Ur Barbiturate Confirm Ur Phencyclidine Scrn Ur Phencyclidine (PCP) (Neg) Urine PCP Confirm Ur Amphetamines Screen U Amphetamines Confirm U Amphetamin/Meth Scrn (Neg) MDMA (Ecstasy) Screen (Neg) U OH-Alprazolam Confrm NEGATIVE (CUTOFF=25) NG/ML U Benzodiazepines Scrn (Neg) U Benzodiazepine Confm 7-Amino Clonazepam NEGATIVE (CUTOFF=25) NG/ML Ur Nordiazepam Confirm 96 A (CUTOFF=50) NG/ML U OH-ethylflurazepam NEGATIVE (CUTOFF=50) NG/ML U Lorazepam Cnf GC/MS NEGATIVE (CUTOFF=50) NG/ML U Oxazepam Confm GC/MS 475 A (CUTOFF=50) NG/ML Ur Temazepam Confirm 276 A (CUTOFF=50) NG/ML U OH-Triazolam Confirm NEGATIVE (CUTOFF=50) NG/ML U OH-Midazolam Confirm NEGATIVE (CUTOFF=50) NG/ML Urine Cocaine Ur Cocaine Metabolite (Neg) U Cocaine Metab Confirm U Marijuana (THC) Screen (Neg) U Marijuana (THC) Confirm U THC/Creatinine Ratio Ur Drug Screen Comment Ethyl Alcohol mg/dL (0-3) mg/dl Influenza Type A (PCR) (Neg) Influenza Type B (PCR) (Neg) Blood Type Antibody Screen 08/07/18 08/07/18 08/08/18 Range/Units 16:31 20:20 05:15 WBC (4.8-10.8) K/uL RBC (4.7-6.1) M/uL Hgb (14.0-18.0) g/dL POC Hgb (14.0-18.0) g/dl Hct (42-52) % POC Hct (42-52) % MCV (80-100) fL MCH (25-34) pg MCHC (32-36) g/dL RDW Std Deviation (36.4-46.3) fL RDW Coeff of Kami (11.5-14.5) % Plt Count (130-400) K/uL MPV (7.4-10.4) fL Immature Gran % (Auto) % Neut % (Auto) % Lymph % (Auto) % Dyer % (Auto) % Eos % (Auto) % Baso % (Auto) % Immature Gran # (Auto) (0.00-0.02) K/uL Neut # (Auto) (1.4-6.5) K/uL Lymph # (Auto) (1.2-3.4) K/uL Dyer # (Auto) (0.11-0.59) K/uL Eos # (Auto) (0-0.5) K/uL Baso # (Auto) (0-0.2) K/uL Hypersegmented Neuts RBC Morphology PT (9.0-12.0) Seconds INR (0.9-1.1) APTT (21.0-31.0) Seconds PTT Ratio VBG pH (7.36-7.41) VBG pCO2 (38-50) mmHg VBG pO2 mmHg VBG HCO3 mmol/L VBG O2 Saturation % VBG Base Excess mEq/L Carboxyhemoglobin % THgb Barometric Pressure mm/Hg POC Sodium (135-144) mEq/L Sodium (136-145) mmol/L POC Potassium (3.3-5.0) mEq/L Potassium (3.5-5.1) mmol/L POC Chloride (101-112) mEq/L Chloride (98-107) mmol/L Carbon Dioxide (21-32) mmol/L POC Total CO2 (24-31) mEq/l Anion Gap (3-11) POC Anion Gap (16-25) mmol/L POC BUN (7-18) mg/dl BUN (7-18) mg/dl Creatinine (0.6-1.4) mg/dl POC Creatinine (0.6-1.3) mg/dl Est Cr Clr Drug Dosing ml/min Est GFR ( Amer) Est GFR (Non-Af Amer) BUN/Creatinine Ratio (10-20) Glucose (70-99) mg/dl POC Glucose 169 H 168 H (70-99) POC Glucose (other) (70-99) mg/dl Calcium (8.5-10.1) mg/dl POC Ioniz Calcium Peterson (1.12-1.32) mmol/l Magnesium (1.8-2.4) mg/dl Total Bilirubin (0.2-1) mg/dl Direct Bilirubin (0-0.2) mg/dl AST (15-37) U/L ALT (12-78) U/L Alkaline Phosphatase (45-117) U/L Ammonia (11-32) umol/L Troponin I (0-0.045) ng/ml Total Protein (6.4-8.2) gm/dl Albumin (3.4-5.0) gm/dl Globulin (2.5-4.0) gm/dl Albumin/Globulin Ratio (0.9-2) Vitamin B12 412 (211-911) pg/ml Folate (>5.38) ng/ml TSH (0.300-4.500) uIu/ml Urine Color Urine Appearance (Clear) Urine pH (4.5-7.5) Ur Specific Campbell (1.000-1.030) Urine Protein (Negative) Urine Glucose (UA) (Negative) Urine Ketones (Negative) Urine Blood (Negative) Urine Nitrite (Negative) Urine Bilirubin (Negative) Urine Urobilinogen (Negative) Ur Leukocyte Esterase (Negative) Urine WBC (Auto) (0-5) /hpf Urine RBC (Auto) (0-4) /hpf U Hyaline Cast (Auto) (0-5) /lpf U Epithel Cells (Auto) (0-5) /lpf Urine Bacteria (Auto) (Negative) Ur Renal Epithelial Cell Amorphous Sediment (None Prsent) Urine Creatinine 2 Urine Opiates Screen (Neg) Ur Opiates Confirm Ur Oxycodone Screen Ur Methadone, Qual (Neg) Ur Methadone Urine Barbiturates (Neg) Ur Barbiturate Confirm Ur Phencyclidine Scrn Ur Phencyclidine (PCP) (Neg) Urine PCP Confirm Ur Amphetamines Screen U Amphetamines Confirm U Amphetamin/Meth Scrn (Neg) MDMA (Ecstasy) Screen (Neg) U OH-Alprazolam Confrm (CUTOFF=25) NG/ML U Benzodiazepines Scrn (Neg) U Benzodiazepine Confm 7-Amino Clonazepam (CUTOFF=25) NG/ML Ur Nordiazepam Confirm (CUTOFF=50) NG/ML U OH-ethylflurazepam (CUTOFF=50) NG/ML U Lorazepam Cnf GC/MS (CUTOFF=50) NG/ML U Oxazepam Confm GC/MS (CUTOFF=50) NG/ML Ur Temazepam Confirm (CUTOFF=50) NG/ML U OH-Triazolam Confirm (CUTOFF=50) NG/ML U OH-Midazolam Confirm (CUTOFF=50) NG/ML Urine Cocaine Ur Cocaine Metabolite (Neg) U Cocaine Metab Confirm U Marijuana (THC) Screen (Neg) U Marijuana (THC) Confirm U THC/Creatinine Ratio Ur Drug Screen Comment Ethyl Alcohol mg/dL (0-3) mg/dl Influenza Type A (PCR) (Neg) Influenza Type B (PCR) (Neg) Blood Type Antibody Screen 08/08/18 08/08/18 08/08/18 Range/Units 05:15 05:15 07:08 WBC (4.8-10.8) K/uL RBC 2.78 L (4.7-6.1) M/uL Hgb (14.0-18.0) g/dL POC Hgb (14.0-18.0) g/dl Hct (42-52) % POC Hct (42-52) % MCV 92.4 (80-100) fL MCH 29.9 (25-34) pg MCHC 32.3 (32-36) g/dL RDW Std Deviation 43.9 (36.4-46.3) fL RDW Coeff of Kami 12.9 (11.5-14.5) % Plt Count (130-400) K/uL MPV 8.4 (7.4-10.4) fL Immature Gran % (Auto) % Neut % (Auto) % Lymph % (Auto) % Dyer % (Auto) % Eos % (Auto) % Baso % (Auto) % Immature Gran # (Auto) (0.00-0.02) K/uL Neut # (Auto) (1.4-6.5) K/uL Lymph # (Auto) (1.2-3.4) K/uL Dyer # (Auto) (0.11-0.59) K/uL Eos # (Auto) (0-0.5) K/uL Baso # (Auto) (0-0.2) K/uL Hypersegmented Neuts RBC Morphology PT (9.0-12.0) Seconds INR (0.9-1.1) APTT (21.0-31.0) Seconds PTT Ratio VBG pH (7.36-7.41) VBG pCO2 (38-50) mmHg VBG pO2 mmHg VBG HCO3 mmol/L VBG O2 Saturation % VBG Base Excess mEq/L Carboxyhemoglobin % THgb Barometric Pressure mm/Hg POC Sodium (135-144) mEq/L Sodium 133 L (136-145) mmol/L POC Potassium (3.3-5.0) mEq/L Potassium 4.3 (3.5-5.1) mmol/L POC Chloride (101-112) mEq/L Chloride 97 L (98-107) mmol/L Carbon Dioxide 27 (21-32) mmol/L POC Total CO2 (24-31) mEq/l Anion Gap 9.0 (3-11) POC Anion Gap (16-25) mmol/L POC BUN (7-18) mg/dl BUN 108 H (7-18) mg/dl Creatinine 5.44 H* (0.6-1.4) mg/dl POC Creatinine (0.6-1.3) mg/dl Est Cr Clr Drug Dosing 16.2 ml/min Est GFR ( Amer) 13.3 Est GFR (Non-Af Amer) 11.5 BUN/Creatinine Ratio 19.8 (10-20) Glucose 223 H (70-99) mg/dl POC Glucose 236 H (70-99) POC Glucose (other) (70-99) mg/dl Calcium 7.5 L (8.5-10.1) mg/dl POC Ioniz Calcium Peterson (1.12-1.32) mmol/l Magnesium (1.8-2.4) mg/dl Total Bilirubin (0.2-1) mg/dl Direct Bilirubin (0-0.2) mg/dl AST (15-37) U/L ALT (12-78) U/L Alkaline Phosphatase (45-117) U/L Ammonia (11-32) umol/L Troponin I (0-0.045) ng/ml Total Protein (6.4-8.2) gm/dl Albumin (3.4-5.0) gm/dl Globulin (2.5-4.0) gm/dl Albumin/Globulin Ratio (0.9-2) Vitamin B12 (211-911) pg/ml Folate (>5.38) ng/ml TSH (0.300-4.500) uIu/ml Urine Color Urine Appearance (Clear) Urine pH (4.5-7.5) Ur Specific Campbell (1.000-1.030) Urine Protein (Negative) Urine Glucose (UA) (Negative) Urine Ketones (Negative) Urine Blood (Negative) Urine Nitrite (Negative) Urine Bilirubin (Negative) Urine Urobilinogen (Negative) Ur Leukocyte Esterase (Negative) Urine WBC (Auto) (0-5) /hpf Urine RBC (Auto) (0-4) /hpf U Hyaline Cast (Auto) (0-5) /lpf U Epithel Cells (Auto) (0-5) /lpf Urine Bacteria (Auto) (Negative) Ur Renal Epithelial Cell Amorphous Sediment (None Prsent) Urine Creatinine 2 Urine Opiates Screen (Neg) Ur Opiates Confirm Ur Oxycodone Screen Ur Methadone, Qual (Neg) Ur Methadone Urine Barbiturates (Neg) Ur Barbiturate Confirm Ur Phencyclidine Scrn Ur Phencyclidine (PCP) (Neg) Urine PCP Confirm Ur Amphetamines Screen U Amphetamines Confirm U Amphetamin/Meth Scrn (Neg) MDMA (Ecstasy) Screen (Neg) U OH-Alprazolam Confrm (CUTOFF=25) NG/ML U Benzodiazepines Scrn (Neg) U Benzodiazepine Confm 7-Amino Clonazepam (CUTOFF=25) NG/ML Ur Nordiazepam Confirm (CUTOFF=50) NG/ML U OH-ethylflurazepam (CUTOFF=50) NG/ML U Lorazepam Cnf GC/MS (CUTOFF=50) NG/ML U Oxazepam Confm GC/MS (CUTOFF=50) NG/ML Ur Temazepam Confirm (CUTOFF=50) NG/ML U OH-Triazolam Confirm (CUTOFF=50) NG/ML U OH-Midazolam Confirm (CUTOFF=50) NG/ML Urine Cocaine Ur Cocaine Metabolite (Neg) U Cocaine Metab Confirm U Marijuana (THC) Screen (Neg) U Marijuana (THC) Confirm U THC/Creatinine Ratio Ur Drug Screen Comment Ethyl Alcohol mg/dL (0-3) mg/dl Influenza Type A (PCR) (Neg) Influenza Type B (PCR) (Neg) Blood Type Antibody Screen 08/08/18 08/08/18 08/08/18 Range/Units 10:59 16:18 20:11 WBC (4.8-10.8) K/uL RBC (4.7-6.1) M/uL Hgb (14.0-18.0) g/dL POC Hgb (14.0-18.0) g/dl Hct (42-52) % POC Hct (42-52) % MCV (80-100) fL MCH (25-34) pg MCHC (32-36) g/dL RDW Std Deviation (36.4-46.3) fL RDW Coeff of Kami (11.5-14.5) % Plt Count (130-400) K/uL MPV (7.4-10.4) fL Immature Gran % (Auto) % Neut % (Auto) % Lymph % (Auto) % Dyer % (Auto) % Eos % (Auto) % Baso % (Auto) % Immature Gran # (Auto) (0.00-0.02) K/uL Neut # (Auto) (1.4-6.5) K/uL Lymph # (Auto) (1.2-3.4) K/uL Dyer # (Auto) (0.11-0.59) K/uL Eos # (Auto) (0-0.5) K/uL Baso # (Auto) (0-0.2) K/uL Hypersegmented Neuts RBC Morphology PT (9.0-12.0) Seconds INR (0.9-1.1) APTT (21.0-31.0) Seconds PTT Ratio VBG pH (7.36-7.41) VBG pCO2 (38-50) mmHg VBG pO2 mmHg VBG HCO3 mmol/L VBG O2 Saturation % VBG Base Excess mEq/L Carboxyhemoglobin % THgb Barometric Pressure mm/Hg POC Sodium (135-144) mEq/L Sodium (136-145) mmol/L POC Potassium (3.3-5.0) mEq/L Potassium (3.5-5.1) mmol/L POC Chloride (101-112) mEq/L Chloride (98-107) mmol/L Carbon Dioxide (21-32) mmol/L POC Total CO2 (24-31) mEq/l Anion Gap (3-11) POC Anion Gap (16-25) mmol/L POC BUN (7-18) mg/dl BUN (7-18) mg/dl Creatinine (0.6-1.4) mg/dl POC Creatinine (0.6-1.3) mg/dl Est Cr Clr Drug Dosing ml/min Est GFR ( Amer) Est GFR (Non-Af Amer) BUN/Creatinine Ratio (10-20) Glucose (70-99) mg/dl POC Glucose 232 H 118 H 100 H (70-99) POC Glucose (other) (70-99) mg/dl Calcium (8.5-10.1) mg/dl POC Ioniz Calcium Peterson (1.12-1.32) mmol/l Magnesium (1.8-2.4) mg/dl Total Bilirubin (0.2-1) mg/dl Direct Bilirubin (0-0.2) mg/dl AST (15-37) U/L ALT (12-78) U/L Alkaline Phosphatase (45-117) U/L Ammonia (11-32) umol/L Troponin I (0-0.045) ng/ml Total Protein (6.4-8.2) gm/dl Albumin (3.4-5.0) gm/dl Globulin (2.5-4.0) gm/dl Albumin/Globulin Ratio (0.9-2) Vitamin B12 (211-911) pg/ml Folate (>5.38) ng/ml TSH (0.300-4.500) uIu/ml Urine Color Urine Appearance (Clear) Urine pH (4.5-7.5) Ur Specific Campbell (1.000-1.030) Urine Protein (Negative) Urine Glucose (UA) (Negative) Urine Ketones (Negative) Urine Blood (Negative) Urine Nitrite (Negative) Urine Bilirubin (Negative) Urine Urobilinogen (Negative) Ur Leukocyte Esterase (Negative) Urine WBC (Auto) (0-5) /hpf Urine RBC (Auto) (0-4) /hpf U Hyaline Cast (Auto) (0-5) /lpf U Epithel Cells (Auto) (0-5) /lpf Urine Bacteria (Auto) (Negative) Ur Renal Epithelial Cell Amorphous Sediment (None Prsent) Urine Creatinine 2 Urine Opiates Screen (Neg) Ur Opiates Confirm Ur Oxycodone Screen Ur Methadone, Qual (Neg) Ur Methadone Urine Barbiturates (Neg) Ur Barbiturate Confirm Ur Phencyclidine Scrn Ur Phencyclidine (PCP) (Neg) Urine PCP Confirm Ur Amphetamines Screen U Amphetamines Confirm U Amphetamin/Meth Scrn (Neg) MDMA (Ecstasy) Screen (Neg) U OH-Alprazolam Confrm (CUTOFF=25) NG/ML U Benzodiazepines Scrn (Neg) U Benzodiazepine Confm 7-Amino Clonazepam (CUTOFF=25) NG/ML Ur Nordiazepam Confirm (CUTOFF=50) NG/ML U OH-ethylflurazepam (CUTOFF=50) NG/ML U Lorazepam Cnf GC/MS (CUTOFF=50) NG/ML U Oxazepam Confm GC/MS (CUTOFF=50) NG/ML Ur Temazepam Confirm (CUTOFF=50) NG/ML U OH-Triazolam Confirm (CUTOFF=50) NG/ML U OH-Midazolam Confirm (CUTOFF=50) NG/ML Urine Cocaine Ur Cocaine Metabolite (Neg) U Cocaine Metab Confirm U Marijuana (THC) Screen (Neg) U Marijuana (THC) Confirm U THC/Creatinine Ratio Ur Drug Screen Comment Ethyl Alcohol mg/dL (0-3) mg/dl Influenza Type A (PCR) (Neg) Influenza Type B (PCR) (Neg) Blood Type Antibody Screen 0308/09/18 08/09/18 Range/Units 05:18 05:18 07:25 WBC (4.8-10.8) K/uL RBC 2.81 L (4.7-6.1) M/uL Hgb (14.0-18.0) g/dL POC Hgb (14.0-18.0) g/dl Hct (42-52) % POC Hct (42-52) % MCV 90.7 (80-100) fL MCH 29.5 (25-34) pg MCHC 32.5 (32-36) g/dL RDW Std Deviation 42.5 (36.4-46.3) fL RDW Coeff of Kami 12.7 (11.5-14.5) % Plt Count (130-400) K/uL MPV 8.4 (7.4-10.4) fL Immature Gran % (Auto) % Neut % (Auto) % Lymph % (Auto) % Dyer % (Auto) % Eos % (Auto) % Baso % (Auto) % Immature Gran # (Auto) (0.00-0.02) K/uL Neut # (Auto) (1.4-6.5) K/uL Lymph # (Auto) (1.2-3.4) K/uL Dyer # (Auto) (0.11-0.59) K/uL Eos # (Auto) (0-0.5) K/uL Baso # (Auto) (0-0.2) K/uL Hypersegmented Neuts RBC Morphology PT (9.0-12.0) Seconds INR (0.9-1.1) APTT (21.0-31.0) Seconds PTT Ratio VBG pH (7.36-7.41) VBG pCO2 (38-50) mmHg VBG pO2 mmHg VBG HCO3 mmol/L VBG O2 Saturation % VBG Base Excess mEq/L Carboxyhemoglobin % THgb Barometric Pressure mm/Hg POC Sodium (135-144) mEq/L Sodium 134 L (136-145) mmol/L POC Potassium (3.3-5.0) mEq/L Potassium 3.9 (3.5-5.1) mmol/L POC Chloride (101-112) mEq/L Chloride 96 L (98-107) mmol/L Carbon Dioxide 28 (21-32) mmol/L POC Total CO2 (24-31) mEq/l Anion Gap 10.0 (3-11) POC Anion Gap (16-25) mmol/L POC BUN (7-18) mg/dl BUN 100 H (7-18) mg/dl Creatinine 5.51 H* (0.6-1.4) mg/dl POC Creatinine (0.6-1.3) mg/dl Est Cr Clr Drug Dosing 16.0 ml/min Est GFR ( Amer) 13.1 Est GFR (Non-Af Amer) 11.3 BUN/Creatinine Ratio 18.1 (10-20) Glucose 138 H (70-99) mg/dl POC Glucose 192 H (70-99) POC Glucose (other) (70-99) mg/dl Calcium 7.5 L (8.5-10.1) mg/dl POC Ioniz Calcium Peterson (1.12-1.32) mmol/l Magnesium (1.8-2.4) mg/dl Total Bilirubin (0.2-1) mg/dl Direct Bilirubin (0-0.2) mg/dl AST (15-37) U/L ALT (12-78) U/L Alkaline Phosphatase (45-117) U/L Ammonia (11-32) umol/L Troponin I (0-0.045) ng/ml Total Protein (6.4-8.2) gm/dl Albumin (3.4-5.0) gm/dl Globulin (2.5-4.0) gm/dl Albumin/Globulin Ratio (0.9-2) Vitamin B12 (211-911) pg/ml Folate (>5.38) ng/ml TSH (0.300-4.500) uIu/ml Urine Color Urine Appearance (Clear) Urine pH (4.5-7.5) Ur Specific Campbell (1.000-1.030) Urine Protein (Negative) Urine Glucose (UA) (Negative) Urine Ketones (Negative) Urine Blood (Negative) Urine Nitrite (Negative) Urine Bilirubin (Negative) Urine Urobilinogen (Negative) Ur Leukocyte Esterase (Negative) Urine WBC (Auto) (0-5) /hpf Urine RBC (Auto) (0-4) /hpf U Hyaline Cast (Auto) (0-5) /lpf U Epithel Cells (Auto) (0-5) /lpf Urine Bacteria (Auto) (Negative) Ur Renal Epithelial Cell Amorphous Sediment (None Prsent) Urine Creatinine 2 Urine Opiates Screen (Neg) Ur Opiates Confirm Ur Oxycodone Screen Ur Methadone, Qual (Neg) Ur Methadone Urine Barbiturates (Neg) Ur Barbiturate Confirm Ur Phencyclidine Scrn Ur Phencyclidine (PCP) (Neg) Urine PCP Confirm Ur Amphetamines Screen U Amphetamines Confirm U Amphetamin/Meth Scrn (Neg) MDMA (Ecstasy) Screen (Neg) U OH-Alprazolam Confrm (CUTOFF=25) NG/ML U Benzodiazepines Scrn (Neg) U Benzodiazepine Confm 7-Amino Clonazepam (CUTOFF=25) NG/ML Ur Nordiazepam Confirm (CUTOFF=50) NG/ML U OH-ethylflurazepam (CUTOFF=50) NG/ML U Lorazepam Cnf GC/MS (CUTOFF=50) NG/ML U Oxazepam Confm GC/MS (CUTOFF=50) NG/ML Ur Temazepam Confirm (CUTOFF=50) NG/ML U OH-Triazolam Confirm (CUTOFF=50) NG/ML U OH-Midazolam Confirm (CUTOFF=50) NG/ML Urine Cocaine Ur Cocaine Metabolite (Neg) U Cocaine Metab Confirm U Marijuana (THC) Screen (Neg) U Marijuana (THC) Confirm U THC/Creatinine Ratio Ur Drug Screen Comment Ethyl Alcohol mg/dL (0-3) mg/dl Influenza Type A (PCR) (Neg) Influenza Type B (PCR) (Neg) Blood Type Antibody Screen 08/09/18 08/09/18 08/09/18 Range/Units 11:27 16:24 20:20 WBC (4.8-10.8) K/uL RBC (4.7-6.1) M/uL Hgb (14.0-18.0) g/dL POC Hgb (14.0-18.0) g/dl Hct (42-52) % POC Hct (42-52) % MCV (80-100) fL MCH (25-34) pg MCHC (32-36) g/dL RDW Std Deviation (36.4-46.3) fL RDW Coeff of Kami (11.5-14.5) % Plt Count (130-400) K/uL MPV (7.4-10.4) fL Immature Gran % (Auto) % Neut % (Auto) % Lymph % (Auto) % Dyer % (Auto) % Eos % (Auto) % Baso % (Auto) % Immature Gran # (Auto) (0.00-0.02) K/uL Neut # (Auto) (1.4-6.5) K/uL Lymph # (Auto) (1.2-3.4) K/uL Dyer # (Auto) (0.11-0.59) K/uL Eos # (Auto) (0-0.5) K/uL Baso # (Auto) (0-0.2) K/uL Hypersegmented Neuts RBC Morphology PT (9.0-12.0) Seconds INR (0.9-1.1) APTT (21.0-31.0) Seconds PTT Ratio VBG pH (7.36-7.41) VBG pCO2 (38-50) mmHg VBG pO2 mmHg VBG HCO3 mmol/L VBG O2 Saturation % VBG Base Excess mEq/L Carboxyhemoglobin % THgb Barometric Pressure mm/Hg POC Sodium (135-144) mEq/L Sodium (136-145) mmol/L POC Potassium (3.3-5.0) mEq/L Potassium (3.5-5.1) mmol/L POC Chloride (101-112) mEq/L Chloride (98-107) mmol/L Carbon Dioxide (21-32) mmol/L POC Total CO2 (24-31) mEq/l Anion Gap (3-11) POC Anion Gap (16-25) mmol/L POC BUN (7-18) mg/dl BUN (7-18) mg/dl Creatinine (0.6-1.4) mg/dl POC Creatinine (0.6-1.3) mg/dl Est Cr Clr Drug Dosing ml/min Est GFR ( Amer) Est GFR (Non-Af Amer) BUN/Creatinine Ratio (10-20) Glucose (70-99) mg/dl POC Glucose 287 H 157 H 122 H (70-99) POC Glucose (other) (70-99) mg/dl Calcium (8.5-10.1) mg/dl POC Ioniz Calcium Peterson (1.12-1.32) mmol/l Magnesium (1.8-2.4) mg/dl Total Bilirubin (0.2-1) mg/dl Direct Bilirubin (0-0.2) mg/dl AST (15-37) U/L ALT (12-78) U/L Alkaline Phosphatase (45-117) U/L Ammonia (11-32) umol/L Troponin I (0-0.045) ng/ml Total Protein (6.4-8.2) gm/dl Albumin (3.4-5.0) gm/dl Globulin (2.5-4.0) gm/dl Albumin/Globulin Ratio (0.9-2) Vitamin B12 (211-911) pg/ml Folate (>5.38) ng/ml TSH (0.300-4.500) uIu/ml Urine Color Urine Appearance (Clear) Urine pH (4.5-7.5) Ur Specific Campbell (1.000-1.030) Urine Protein (Negative) Urine Glucose (UA) (Negative) Urine Ketones (Negative) Urine Blood (Negative) Urine Nitrite (Negative) Urine Bilirubin (Negative) Urine Urobilinogen (Negative) Ur Leukocyte Esterase (Negative) Urine WBC (Auto) (0-5) /hpf Urine RBC (Auto) (0-4) /hpf U Hyaline Cast (Auto) (0-5) /lpf U Epithel Cells (Auto) (0-5) /lpf Urine Bacteria (Auto) (Negative) Ur Renal Epithelial Cell Amorphous Sediment (None Prsent) Urine Creatinine 2 Urine Opiates Screen (Neg) Ur Opiates Confirm Ur Oxycodone Screen Ur Methadone, Qual (Neg) Ur Methadone Urine Barbiturates (Neg) Ur Barbiturate Confirm Ur Phencyclidine Scrn Ur Phencyclidine (PCP) (Neg) Urine PCP Confirm Ur Amphetamines Screen U Amphetamines Confirm U Amphetamin/Meth Scrn (Neg) MDMA (Ecstasy) Screen (Neg) U OH-Alprazolam Confrm (CUTOFF=25) NG/ML U Benzodiazepines Scrn (Neg) U Benzodiazepine Confm 7-Amino Clonazepam (CUTOFF=25) NG/ML Ur Nordiazepam Confirm (CUTOFF=50) NG/ML U OH-ethylflurazepam (CUTOFF=50) NG/ML U Lorazepam Cnf GC/MS (CUTOFF=50) NG/ML U Oxazepam Confm GC/MS (CUTOFF=50) NG/ML Ur Temazepam Confirm (CUTOFF=50) NG/ML U OH-Triazolam Confirm (CUTOFF=50) NG/ML U OH-Midazolam Confirm (CUTOFF=50) NG/ML Urine Cocaine Ur Cocaine Metabolite (Neg) U Cocaine Metab Confirm U Marijuana (THC) Screen (Neg) U Marijuana (THC) Confirm U THC/Creatinine Ratio Ur Drug Screen Comment Ethyl Alcohol mg/dL (0-3) mg/dl Influenza Type A (PCR) (Neg) Influenza Type B (PCR) (Neg) Blood Type Antibody Screen 08/10/18 08/10/18 08/10/18 Range/Units 05:09 05:09 07:19 WBC (4.8-10.8) K/uL RBC 2.87 L (4.7-6.1) M/uL Hgb (14.0-18.0) g/dL POC Hgb (14.0-18.0) g/dl Hct (42-52) % POC Hct (42-52) % MCV 90.6 (80-100) fL MCH 30.3 (25-34) pg MCHC 33.5 (32-36) g/dL RDW Std Deviation 42.1 (36.4-46.3) fL RDW Coeff of Kami 12.8 (11.5-14.5) % Plt Count (130-400) K/uL MPV 8.4 (7.4-10.4) fL Immature Gran % (Auto) % Neut % (Auto) % Lymph % (Auto) % Dyer % (Auto) % Eos % (Auto) % Baso % (Auto) % Immature Gran # (Auto) (0.00-0.02) K/uL Neut # (Auto) (1.4-6.5) K/uL Lymph # (Auto) (1.2-3.4) K/uL Dyer # (Auto) (0.11-0.59) K/uL Eos # (Auto) (0-0.5) K/uL Baso # (Auto) (0-0.2) K/uL Hypersegmented Neuts RBC Morphology PT (9.0-12.0) Seconds INR (0.9-1.1) APTT (21.0-31.0) Seconds PTT Ratio VBG pH (7.36-7.41) VBG pCO2 (38-50) mmHg VBG pO2 mmHg VBG HCO3 mmol/L VBG O2 Saturation % VBG Base Excess mEq/L Carboxyhemoglobin % THgb Barometric Pressure mm/Hg POC Sodium (135-144) mEq/L Sodium 134 L (136-145) mmol/L POC Potassium (3.3-5.0) mEq/L Potassium 3.9 (3.5-5.1) mmol/L POC Chloride (101-112) mEq/L Chloride 95 L (98-107) mmol/L Carbon Dioxide 30 (21-32) mmol/L POC Total CO2 (24-31) mEq/l Anion Gap 9.0 (3-11) POC Anion Gap (16-25) mmol/L POC BUN (7-18) mg/dl BUN 95 H (7-18) mg/dl Creatinine 5.63 H* (0.6-1.4) mg/dl POC Creatinine (0.6-1.3) mg/dl Est Cr Clr Drug Dosing 15.7 ml/min Est GFR ( Amer) 12.8 Est GFR (Non-Af Amer) 11.0 BUN/Creatinine Ratio 17.1 (10-20) Glucose 103 H (70-99) mg/dl POC Glucose 228 H (70-99) POC Glucose (other) (70-99) mg/dl Calcium 7.5 L (8.5-10.1) mg/dl POC Ioniz Calcium Peterson (1.12-1.32) mmol/l Magnesium 2.2 (1.8-2.4) mg/dl Total Bilirubin (0.2-1) mg/dl Direct Bilirubin (0-0.2) mg/dl AST (15-37) U/L ALT (12-78) U/L Alkaline Phosphatase (45-117) U/L Ammonia (11-32) umol/L Troponin I (0-0.045) ng/ml Total Protein (6.4-8.2) gm/dl Albumin (3.4-5.0) gm/dl Globulin (2.5-4.0) gm/dl Albumin/Globulin Ratio (0.9-2) Vitamin B12 (211-911) pg/ml Folate (>5.38) ng/ml TSH (0.300-4.500) uIu/ml Urine Color Urine Appearance (Clear) Urine pH (4.5-7.5) Ur Specific Campbell (1.000-1.030) Urine Protein (Negative) Urine Glucose (UA) (Negative) Urine Ketones (Negative) Urine Blood (Negative) Urine Nitrite (Negative) Urine Bilirubin (Negative) Urine Urobilinogen (Negative) Ur Leukocyte Esterase (Negative) Urine WBC (Auto) (0-5) /hpf Urine RBC (Auto) (0-4) /hpf U Hyaline Cast (Auto) (0-5) /lpf U Epithel Cells (Auto) (0-5) /lpf Urine Bacteria (Auto) (Negative) Ur Renal Epithelial Cell Amorphous Sediment (None Prsent) Urine Creatinine 2 Urine Opiates Screen (Neg) Ur Opiates Confirm Ur Oxycodone Screen Ur Methadone, Qual (Neg) Ur Methadone Urine Barbiturates (Neg) Ur Barbiturate Confirm Ur Phencyclidine Scrn Ur Phencyclidine (PCP) (Neg) Urine PCP Confirm Ur Amphetamines Screen U Amphetamines Confirm U Amphetamin/Meth Scrn (Neg) MDMA (Ecstasy) Screen (Neg) U OH-Alprazolam Confrm (CUTOFF=25) NG/ML U Benzodiazepines Scrn (Neg) U Benzodiazepine Confm 7-Amino Clonazepam (CUTOFF=25) NG/ML Ur Nordiazepam Confirm (CUTOFF=50) NG/ML U OH-ethylflurazepam (CUTOFF=50) NG/ML U Lorazepam Cnf GC/MS (CUTOFF=50) NG/ML U Oxazepam Confm GC/MS (CUTOFF=50) NG/ML Ur Temazepam Confirm (CUTOFF=50) NG/ML U OH-Triazolam Confirm (CUTOFF=50) NG/ML U OH-Midazolam Confirm (CUTOFF=50) NG/ML Urine Cocaine Ur Cocaine Metabolite (Neg) U Cocaine Metab Confirm U Marijuana (THC) Screen (Neg) U Marijuana (THC) Confirm U THC/Creatinine Ratio Ur Drug Screen Comment Ethyl Alcohol mg/dL (0-3) mg/dl Influenza Type A (PCR) (Neg) Influenza Type B (PCR) (Neg) Blood Type Antibody Screen 08/10/18 08/10/18 08/10/18 Range/Units 11:21 16:15 20:44 WBC (4.8-10.8) K/uL RBC (4.7-6.1) M/uL Hgb (14.0-18.0) g/dL POC Hgb (14.0-18.0) g/dl Hct (42-52) % POC Hct (42-52) % MCV (80-100) fL MCH (25-34) pg MCHC (32-36) g/dL RDW Std Deviation (36.4-46.3) fL RDW Coeff of Kami (11.5-14.5) % Plt Count (130-400) K/uL MPV (7.4-10.4) fL Immature Gran % (Auto) % Neut % (Auto) % Lymph % (Auto) % Dyer % (Auto) % Eos % (Auto) % Baso % (Auto) % Immature Gran # (Auto) (0.00-0.02) K/uL Neut # (Auto) (1.4-6.5) K/uL Lymph # (Auto) (1.2-3.4) K/uL Dyer # (Auto) (0.11-0.59) K/uL Eos # (Auto) (0-0.5) K/uL Baso # (Auto) (0-0.2) K/uL Hypersegmented Neuts RBC Morphology PT (9.0-12.0) Seconds INR (0.9-1.1) APTT (21.0-31.0) Seconds PTT Ratio VBG pH (7.36-7.41) VBG pCO2 (38-50) mmHg VBG pO2 mmHg VBG HCO3 mmol/L VBG O2 Saturation % VBG Base Excess mEq/L Carboxyhemoglobin % THgb Barometric Pressure mm/Hg POC Sodium (135-144) mEq/L Sodium (136-145) mmol/L POC Potassium (3.3-5.0) mEq/L Potassium (3.5-5.1) mmol/L POC Chloride (101-112) mEq/L Chloride (98-107) mmol/L Carbon Dioxide (21-32) mmol/L POC Total CO2 (24-31) mEq/l Anion Gap (3-11) POC Anion Gap (16-25) mmol/L POC BUN (7-18) mg/dl BUN (7-18) mg/dl Creatinine (0.6-1.4) mg/dl POC Creatinine (0.6-1.3) mg/dl Est Cr Clr Drug Dosing ml/min Est GFR ( Amer) Est GFR (Non-Af Amer) BUN/Creatinine Ratio (10-20) Glucose (70-99) mg/dl POC Glucose 246 H 164 H 155 H (70-99) POC Glucose (other) (70-99) mg/dl Calcium (8.5-10.1) mg/dl POC Ioniz Calcium Peterson (1.12-1.32) mmol/l Magnesium (1.8-2.4) mg/dl Total Bilirubin (0.2-1) mg/dl Direct Bilirubin (0-0.2) mg/dl AST (15-37) U/L ALT (12-78) U/L Alkaline Phosphatase (45-117) U/L Ammonia (11-32) umol/L Troponin I (0-0.045) ng/ml Total Protein (6.4-8.2) gm/dl Albumin (3.4-5.0) gm/dl Globulin (2.5-4.0) gm/dl Albumin/Globulin Ratio (0.9-2) Vitamin B12 (211-911) pg/ml Folate (>5.38) ng/ml TSH (0.300-4.500) uIu/ml Urine Color Urine Appearance (Clear) Urine pH (4.5-7.5) Ur Specific Campbell (1.000-1.030) Urine Protein (Negative) Urine Glucose (UA) (Negative) Urine Ketones (Negative) Urine Blood (Negative) Urine Nitrite (Negative) Urine Bilirubin (Negative) Urine Urobilinogen (Negative) Ur Leukocyte Esterase (Negative) Urine WBC (Auto) (0-5) /hpf Urine RBC (Auto) (0-4) /hpf U Hyaline Cast (Auto) (0-5) /lpf U Epithel Cells (Auto) (0-5) /lpf Urine Bacteria (Auto) (Negative) Ur Renal Epithelial Cell Amorphous Sediment (None Prsent) Urine Creatinine 2 Urine Opiates Screen (Neg) Ur Opiates Confirm Ur Oxycodone Screen Ur Methadone, Qual (Neg) Ur Methadone Urine Barbiturates (Neg) Ur Barbiturate Confirm Ur Phencyclidine Scrn Ur Phencyclidine (PCP) (Neg) Urine PCP Confirm Ur Amphetamines Screen U Amphetamines Confirm U Amphetamin/Meth Scrn (Neg) MDMA (Ecstasy) Screen (Neg) U OH-Alprazolam Confrm (CUTOFF=25) NG/ML U Benzodiazepines Scrn (Neg) U Benzodiazepine Confm 7-Amino Clonazepam (CUTOFF=25) NG/ML Ur Nordiazepam Confirm (CUTOFF=50) NG/ML U OH-ethylflurazepam (CUTOFF=50) NG/ML U Lorazepam Cnf GC/MS (CUTOFF=50) NG/ML U Oxazepam Confm GC/MS (CUTOFF=50) NG/ML Ur Temazepam Confirm (CUTOFF=50) NG/ML U OH-Triazolam Confirm (CUTOFF=50) NG/ML U OH-Midazolam Confirm (CUTOFF=50) NG/ML Urine Cocaine Ur Cocaine Metabolite (Neg) U Cocaine Metab Confirm U Marijuana (THC) Screen (Neg) U Marijuana (THC) Confirm U THC/Creatinine Ratio Ur Drug Screen Comment Ethyl Alcohol mg/dL (0-3) mg/dl Influenza Type A (PCR) (Neg) Influenza Type B (PCR) (Neg) Blood Type Antibody Screen 08/11/18 08/11/18 08/11/18 Range/Units 07:35 07:40 07:40 WBC (4.8-10.8) K/uL RBC 3.00 L (4.7-6.1) M/uL Hgb (14.0-18.0) g/dL POC Hgb (14.0-18.0) g/dl Hct (42-52) % POC Hct (42-52) % MCV 90.7 (80-100) fL MCH 30.0 (25-34) pg MCHC 33.1 (32-36) g/dL RDW Std Deviation 42.3 (36.4-46.3) fL RDW Coeff of Kami 12.9 (11.5-14.5) % Plt Count (130-400) K/uL MPV 8.4 (7.4-10.4) fL Immature Gran % (Auto) 1.2 % Neut % (Auto) 71.1 % Lymph % (Auto) 14.6 % Dyer % (Auto) 10.7 % Eos % (Auto) 2.0 % Baso % (Auto) 0.4 % Immature Gran # (Auto) 0.15 H (0.00-0.02) K/uL Neut # (Auto) 8.73 H (1.4-6.5) K/uL Lymph # (Auto) 1.79 (1.2-3.4) K/uL Dyer # (Auto) 1.31 H (0.11-0.59) K/uL Eos # (Auto) 0.25 (0-0.5) K/uL Baso # (Auto) 0.05 (0-0.2) K/uL Hypersegmented Neuts RBC Morphology PT (9.0-12.0) Seconds INR (0.9-1.1) APTT (21.0-31.0) Seconds PTT Ratio VBG pH (7.36-7.41) VBG pCO2 (38-50) mmHg VBG pO2 mmHg VBG HCO3 mmol/L VBG O2 Saturation % VBG Base Excess mEq/L Carboxyhemoglobin % THgb Barometric Pressure mm/Hg POC Sodium (135-144) mEq/L Sodium 134 L (136-145) mmol/L POC Potassium (3.3-5.0) mEq/L Potassium 3.9 (3.5-5.1) mmol/L POC Chloride (101-112) mEq/L Chloride 96 L (98-107) mmol/L Carbon Dioxide 27 (21-32) mmol/L POC Total CO2 (24-31) mEq/l Anion Gap 11.0 (3-11) POC Anion Gap (16-25) mmol/L POC BUN (7-18) mg/dl BUN 94 H (7-18) mg/dl Creatinine 5.53 H* (0.6-1.4) mg/dl POC Creatinine (0.6-1.3) mg/dl Est Cr Clr Drug Dosing 15.8 ml/min Est GFR ( Amer) 13.1 Est GFR (Non-Af Amer) 11.3 BUN/Creatinine Ratio 17.2 (10-20) Glucose 172 H (70-99) mg/dl POC Glucose 182 H (70-99) POC Glucose (other) (70-99) mg/dl Calcium 8.0 L (8.5-10.1) mg/dl POC Ioniz Calcium Peterson (1.12-1.32) mmol/l Magnesium (1.8-2.4) mg/dl Total Bilirubin (0.2-1) mg/dl Direct Bilirubin (0-0.2) mg/dl AST (15-37) U/L ALT (12-78) U/L Alkaline Phosphatase (45-117) U/L Ammonia (11-32) umol/L Troponin I (0-0.045) ng/ml Total Protein (6.4-8.2) gm/dl Albumin (3.4-5.0) gm/dl Globulin (2.5-4.0) gm/dl Albumin/Globulin Ratio (0.9-2) Vitamin B12 (211-911) pg/ml Folate (>5.38) ng/ml TSH (0.300-4.500) uIu/ml Urine Color Urine Appearance (Clear) Urine pH (4.5-7.5) Ur Specific Campbell (1.000-1.030) Urine Protein (Negative) Urine Glucose (UA) (Negative) Urine Ketones (Negative) Urine Blood (Negative) Urine Nitrite (Negative) Urine Bilirubin (Negative) Urine Urobilinogen (Negative) Ur Leukocyte Esterase (Negative) Urine WBC (Auto) (0-5) /hpf Urine RBC (Auto) (0-4) /hpf U Hyaline Cast (Auto) (0-5) /lpf U Epithel Cells (Auto) (0-5) /lpf Urine Bacteria (Auto) (Negative) Ur Renal Epithelial Cell Amorphous Sediment (None Prsent) Urine Creatinine 2 Urine Opiates Screen (Neg) Ur Opiates Confirm Ur Oxycodone Screen Ur Methadone, Qual (Neg) Ur Methadone Urine Barbiturates (Neg) Ur Barbiturate Confirm Ur Phencyclidine Scrn Ur Phencyclidine (PCP) (Neg) Urine PCP Confirm Ur Amphetamines Screen U Amphetamines Confirm U Amphetamin/Meth Scrn (Neg) MDMA (Ecstasy) Screen (Neg) U OH-Alprazolam Confrm (CUTOFF=25) NG/ML U Benzodiazepines Scrn (Neg) U Benzodiazepine Confm 7-Amino Clonazepam (CUTOFF=25) NG/ML Ur Nordiazepam Confirm (CUTOFF=50) NG/ML U OH-ethylflurazepam (CUTOFF=50) NG/ML U Lorazepam Cnf GC/MS (CUTOFF=50) NG/ML U Oxazepam Confm GC/MS (CUTOFF=50) NG/ML Ur Temazepam Confirm (CUTOFF=50) NG/ML U OH-Triazolam Confirm (CUTOFF=50) NG/ML U OH-Midazolam Confirm (CUTOFF=50) NG/ML Urine Cocaine Ur Cocaine Metabolite (Neg) U Cocaine Metab Confirm U Marijuana (THC) Screen (Neg) U Marijuana (THC) Confirm U THC/Creatinine Ratio Ur Drug Screen Comment Ethyl Alcohol mg/dL (0-3) mg/dl Influenza Type A (PCR) (Neg) Influenza Type B (PCR) (Neg) Blood Type Antibody Screen 08/11/18 08/11/18 08/11/18 Range/Units 11:19 15:55 20:14 WBC (4.8-10.8) K/uL RBC (4.7-6.1) M/uL Hgb (14.0-18.0) g/dL POC Hgb (14.0-18.0) g/dl Hct (42-52) % POC Hct (42-52) % MCV (80-100) fL MCH (25-34) pg MCHC (32-36) g/dL RDW Std Deviation (36.4-46.3) fL RDW Coeff of Kami (11.5-14.5) % Plt Count (130-400) K/uL MPV (7.4-10.4) fL Immature Gran % (Auto) % Neut % (Auto) % Lymph % (Auto) % Dyer % (Auto) % Eos % (Auto) % Baso % (Auto) % Immature Gran # (Auto) (0.00-0.02) K/uL Neut # (Auto) (1.4-6.5) K/uL Lymph # (Auto) (1.2-3.4) K/uL Dyer # (Auto) (0.11-0.59) K/uL Eos # (Auto) (0-0.5) K/uL Baso # (Auto) (0-0.2) K/uL Hypersegmented Neuts RBC Morphology PT (9.0-12.0) Seconds INR (0.9-1.1) APTT (21.0-31.0) Seconds PTT Ratio VBG pH (7.36-7.41) VBG pCO2 (38-50) mmHg VBG pO2 mmHg VBG HCO3 mmol/L VBG O2 Saturation % VBG Base Excess mEq/L Carboxyhemoglobin % THgb Barometric Pressure mm/Hg POC Sodium (135-144) mEq/L Sodium (136-145) mmol/L POC Potassium (3.3-5.0) mEq/L Potassium (3.5-5.1) mmol/L POC Chloride (101-112) mEq/L Chloride (98-107) mmol/L Carbon Dioxide (21-32) mmol/L POC Total CO2 (24-31) mEq/l Anion Gap (3-11) POC Anion Gap (16-25) mmol/L POC BUN (7-18) mg/dl BUN (7-18) mg/dl Creatinine (0.6-1.4) mg/dl POC Creatinine (0.6-1.3) mg/dl Est Cr Clr Drug Dosing ml/min Est GFR ( Amer) Est GFR (Non-Af Amer) BUN/Creatinine Ratio (10-20) Glucose (70-99) mg/dl POC Glucose 222 H 85 95 (70-99) POC Glucose (other) (70-99) mg/dl Calcium (8.5-10.1) mg/dl POC Ioniz Calcium Peterson (1.12-1.32) mmol/l Magnesium (1.8-2.4) mg/dl Total Bilirubin (0.2-1) mg/dl Direct Bilirubin (0-0.2) mg/dl AST (15-37) U/L ALT (12-78) U/L Alkaline Phosphatase (45-117) U/L Ammonia (11-32) umol/L Troponin I (0-0.045) ng/ml Total Protein (6.4-8.2) gm/dl Albumin (3.4-5.0) gm/dl Globulin (2.5-4.0) gm/dl Albumin/Globulin Ratio (0.9-2) Vitamin B12 (211-911) pg/ml Folate (>5.38) ng/ml TSH (0.300-4.500) uIu/ml Urine Color Urine Appearance (Clear) Urine pH (4.5-7.5) Ur Specific Campbell (1.000-1.030) Urine Protein (Negative) Urine Glucose (UA) (Negative) Urine Ketones (Negative) Urine Blood (Negative) Urine Nitrite (Negative) Urine Bilirubin (Negative) Urine Urobilinogen (Negative) Ur Leukocyte Esterase (Negative) Urine WBC (Auto) (0-5) /hpf Urine RBC (Auto) (0-4) /hpf U Hyaline Cast (Auto) (0-5) /lpf U Epithel Cells (Auto) (0-5) /lpf Urine Bacteria (Auto) (Negative) Ur Renal Epithelial Cell Amorphous Sediment (None Prsent) Urine Creatinine 2 Urine Opiates Screen (Neg) Ur Opiates Confirm Ur Oxycodone Screen Ur Methadone, Qual (Neg) Ur Methadone Urine Barbiturates (Neg) Ur Barbiturate Confirm Ur Phencyclidine Scrn Ur Phencyclidine (PCP) (Neg) Urine PCP Confirm Ur Amphetamines Screen U Amphetamines Confirm U Amphetamin/Meth Scrn (Neg) MDMA (Ecstasy) Screen (Neg) U OH-Alprazolam Confrm (CUTOFF=25) NG/ML U Benzodiazepines Scrn (Neg) U Benzodiazepine Confm 7-Amino Clonazepam (CUTOFF=25) NG/ML Ur Nordiazepam Confirm (CUTOFF=50) NG/ML U OH-ethylflurazepam (CUTOFF=50) NG/ML U Lorazepam Cnf GC/MS (CUTOFF=50) NG/ML U Oxazepam Confm GC/MS (CUTOFF=50) NG/ML Ur Temazepam Confirm (CUTOFF=50) NG/ML U OH-Triazolam Confirm (CUTOFF=50) NG/ML U OH-Midazolam Confirm (CUTOFF=50) NG/ML Urine Cocaine Ur Cocaine Metabolite (Neg) U Cocaine Metab Confirm U Marijuana (THC) Screen (Neg) U Marijuana (THC) Confirm U THC/Creatinine Ratio Ur Drug Screen Comment Ethyl Alcohol mg/dL (0-3) mg/dl Influenza Type A (PCR) (Neg) Influenza Type B (PCR) (Neg) Blood Type Antibody Screen 08/11/18 08/12/18 08/12/18 Range/Units 21:00 05:21 05:21 WBC (4.8-10.8) K/uL RBC 2.66 L (4.7-6.1) M/uL Hgb (14.0-18.0) g/dL POC Hgb (14.0-18.0) g/dl Hct (42-52) % POC Hct (42-52) % MCV 91.7 (80-100) fL MCH 30.5 (25-34) pg MCHC 33.2 (32-36) g/dL RDW Std Deviation 43.0 (36.4-46.3) fL RDW Coeff of Kami 12.9 (11.5-14.5) % Plt Count (130-400) K/uL MPV 8.0 (7.4-10.4) fL Immature Gran % (Auto) 1.2 % Neut % (Auto) 68.1 % Lymph % (Auto) 17.6 % Dyer % (Auto) 9.9 % Eos % (Auto) 2.9 % Baso % (Auto) 0.3 % Immature Gran # (Auto) 0.15 H (0.00-0.02) K/uL Neut # (Auto) 8.21 H (1.4-6.5) K/uL Lymph # (Auto) 2.12 (1.2-3.4) K/uL Dyer # (Auto) 1.20 H (0.11-0.59) K/uL Eos # (Auto) 0.35 (0-0.5) K/uL Baso # (Auto) 0.04 (0-0.2) K/uL Hypersegmented Neuts RBC Morphology Unremarkable PT (9.0-12.0) Seconds INR (0.9-1.1) APTT (21.0-31.0) Seconds PTT Ratio VBG pH (7.36-7.41) VBG pCO2 (38-50) mmHg VBG pO2 mmHg VBG HCO3 mmol/L VBG O2 Saturation % VBG Base Excess mEq/L Carboxyhemoglobin % THgb Barometric Pressure mm/Hg POC Sodium (135-144) mEq/L Sodium 138 (136-145) mmol/L POC Potassium (3.3-5.0) mEq/L Potassium 3.8 (3.5-5.1) mmol/L POC Chloride (101-112) mEq/L Chloride 99 (98-107) mmol/L Carbon Dioxide 29 (21-32) mmol/L POC Total CO2 (24-31) mEq/l Anion Gap 10.0 (3-11) POC Anion Gap (16-25) mmol/L POC BUN (7-18) mg/dl BUN 89 H (7-18) mg/dl Creatinine 5.42 H* (0.6-1.4) mg/dl POC Creatinine (0.6-1.3) mg/dl Est Cr Clr Drug Dosing 15.9 ml/min Est GFR ( Amer) 13.4 Est GFR (Non-Af Amer) 11.6 BUN/Creatinine Ratio 16.3 (10-20) Glucose 133 H (70-99) mg/dl POC Glucose (70-99) POC Glucose (other) (70-99) mg/dl Calcium 7.5 L (8.5-10.1) mg/dl POC Ioniz Calcium Peterson (1.12-1.32) mmol/l Magnesium 2.1 (1.8-2.4) mg/dl Total Bilirubin 0.2 (0.2-1) mg/dl Direct Bilirubin < 0.1 (0-0.2) mg/dl AST 12 L (15-37) U/L ALT 19 (12-78) U/L Alkaline Phosphatase 98 (45-117) U/L Ammonia (11-32) umol/L Troponin I (0-0.045) ng/ml Total Protein 5.5 L (6.4-8.2) gm/dl Albumin 2.0 L (3.4-5.0) gm/dl Globulin (2.5-4.0) gm/dl Albumin/Globulin Ratio (0.9-2) Vitamin B12 (211-911) pg/ml Folate (>5.38) ng/ml TSH (0.300-4.500) uIu/ml Urine Color Yellow Urine Appearance Clear (Clear) Urine pH 5.5 (4.5-7.5) Ur Specific Campbell 1.017 (1.000-1.030) Urine Protein 3+ H (Negative) Urine Glucose (UA) Trace H (Negative) Urine Ketones Negative (Negative) Urine Blood 1+ H (Negative) Urine Nitrite Negative (Negative) Urine Bilirubin Negative (Negative) Urine Urobilinogen Negative (Negative) Ur Leukocyte Esterase Trace H (Negative) Urine WBC (Auto) 1-5 (0-5) /hpf Urine RBC (Auto) 5-10 H (0-4) /hpf U Hyaline Cast (Auto) 0 (0-5) /lpf U Epithel Cells (Auto) 10-20 H (0-5) /lpf Urine Bacteria (Auto) Negative (Negative) Ur Renal Epithelial Cell Amorphous Sediment (None Prsent) Urine Creatinine 2 Urine Opiates Screen (Neg) Ur Opiates Confirm Ur Oxycodone Screen Ur Methadone, Qual (Neg) Ur Methadone Urine Barbiturates (Neg) Ur Barbiturate Confirm Ur Phencyclidine Scrn Ur Phencyclidine (PCP) (Neg) Urine PCP Confirm Ur Amphetamines Screen U Amphetamines Confirm U Amphetamin/Meth Scrn (Neg) MDMA (Ecstasy) Screen (Neg) U OH-Alprazolam Confrm (CUTOFF=25) NG/ML U Benzodiazepines Scrn (Neg) U Benzodiazepine Confm 7-Amino Clonazepam (CUTOFF=25) NG/ML Ur Nordiazepam Confirm (CUTOFF=50) NG/ML U OH-ethylflurazepam (CUTOFF=50) NG/ML U Lorazepam Cnf GC/MS (CUTOFF=50) NG/ML U Oxazepam Confm GC/MS (CUTOFF=50) NG/ML Ur Temazepam Confirm (CUTOFF=50) NG/ML U OH-Triazolam Confirm (CUTOFF=50) NG/ML U OH-Midazolam Confirm (CUTOFF=50) NG/ML Urine Cocaine Ur Cocaine Metabolite (Neg) U Cocaine Metab Confirm U Marijuana (THC) Screen (Neg) U Marijuana (THC) Confirm U THC/Creatinine Ratio Ur Drug Screen Comment Ethyl Alcohol mg/dL (0-3) mg/dl Influenza Type A (PCR) (Neg) Influenza Type B (PCR) (Neg) Blood Type Antibody Screen 08/12/18 08/12/18 08/12/18 Range/Units 05:21 07:30 11:18 WBC (4.8-10.8) K/uL RBC (4.7-6.1) M/uL Hgb (14.0-18.0) g/dL POC Hgb (14.0-18.0) g/dl Hct (42-52) % POC Hct (42-52) % MCV (80-100) fL MCH (25-34) pg MCHC (32-36) g/dL RDW Std Deviation (36.4-46.3) fL RDW Coeff of Kami (11.5-14.5) % Plt Count (130-400) K/uL MPV (7.4-10.4) fL Immature Gran % (Auto) % Neut % (Auto) % Lymph % (Auto) % Dyer % (Auto) % Eos % (Auto) % Baso % (Auto) % Immature Gran # (Auto) (0.00-0.02) K/uL Neut # (Auto) (1.4-6.5) K/uL Lymph # (Auto) (1.2-3.4) K/uL Dyer # (Auto) (0.11-0.59) K/uL Eos # (Auto) (0-0.5) K/uL Baso # (Auto) (0-0.2) K/uL Hypersegmented Neuts RBC Morphology PT (9.0-12.0) Seconds INR (0.9-1.1) APTT (21.0-31.0) Seconds PTT Ratio VBG pH (7.36-7.41) VBG pCO2 (38-50) mmHg VBG pO2 mmHg VBG HCO3 mmol/L VBG O2 Saturation % VBG Base Excess mEq/L Carboxyhemoglobin % THgb Barometric Pressure mm/Hg POC Sodium (135-144) mEq/L Sodium (136-145) mmol/L POC Potassium (3.3-5.0) mEq/L Potassium (3.5-5.1) mmol/L POC Chloride (101-112) mEq/L Chloride (98-107) mmol/L Carbon Dioxide (21-32) mmol/L POC Total CO2 (24-31) mEq/l Anion Gap (3-11) POC Anion Gap (16-25) mmol/L POC BUN (7-18) mg/dl BUN (7-18) mg/dl Creatinine (0.6-1.4) mg/dl POC Creatinine (0.6-1.3) mg/dl Est Cr Clr Drug Dosing ml/min Est GFR ( Amer) Est GFR (Non-Af Amer) BUN/Creatinine Ratio (10-20) Glucose (70-99) mg/dl POC Glucose 165 H 219 H (70-99) POC Glucose (other) (70-99) mg/dl Calcium (8.5-10.1) mg/dl POC Ioniz Calcium Peterson (1.12-1.32) mmol/l Magnesium (1.8-2.4) mg/dl Total Bilirubin (0.2-1) mg/dl Direct Bilirubin (0-0.2) mg/dl AST (15-37) U/L ALT (12-78) U/L Alkaline Phosphatase (45-117) U/L Ammonia (11-32) umol/L Troponin I (0-0.045) ng/ml Total Protein (6.4-8.2) gm/dl Albumin (3.4-5.0) gm/dl Globulin (2.5-4.0) gm/dl Albumin/Globulin Ratio (0.9-2) Vitamin B12 465 (211-911) pg/ml Folate 17.61 (>5.38) ng/ml TSH (0.300-4.500) uIu/ml Urine Color Urine Appearance (Clear) Urine pH (4.5-7.5) Ur Specific Campbell (1.000-1.030) Urine Protein (Negative) Urine Glucose (UA) (Negative) Urine Ketones (Negative) Urine Blood (Negative) Urine Nitrite (Negative) Urine Bilirubin (Negative) Urine Urobilinogen (Negative) Ur Leukocyte Esterase (Negative) Urine WBC (Auto) (0-5) /hpf Urine RBC (Auto) (0-4) /hpf U Hyaline Cast (Auto) (0-5) /lpf U Epithel Cells (Auto) (0-5) /lpf Urine Bacteria (Auto) (Negative) Ur Renal Epithelial Cell Amorphous Sediment (None Prsent) Urine Creatinine 2 Urine Opiates Screen (Neg) Ur Opiates Confirm Ur Oxycodone Screen Ur Methadone, Qual (Neg) Ur Methadone Urine Barbiturates (Neg) Ur Barbiturate Confirm Ur Phencyclidine Scrn Ur Phencyclidine (PCP) (Neg) Urine PCP Confirm Ur Amphetamines Screen U Amphetamines Confirm U Amphetamin/Meth Scrn (Neg) MDMA (Ecstasy) Screen (Neg) U OH-Alprazolam Confrm (CUTOFF=25) NG/ML U Benzodiazepines Scrn (Neg) U Benzodiazepine Confm 7-Amino Clonazepam (CUTOFF=25) NG/ML Ur Nordiazepam Confirm (CUTOFF=50) NG/ML U OH-ethylflurazepam (CUTOFF=50) NG/ML U Lorazepam Cnf GC/MS (CUTOFF=50) NG/ML U Oxazepam Confm GC/MS (CUTOFF=50) NG/ML Ur Temazepam Confirm (CUTOFF=50) NG/ML U OH-Triazolam Confirm (CUTOFF=50) NG/ML U OH-Midazolam Confirm (CUTOFF=50) NG/ML Urine Cocaine Ur Cocaine Metabolite (Neg) U Cocaine Metab Confirm U Marijuana (THC) Screen (Neg) U Marijuana (THC) Confirm U THC/Creatinine Ratio Ur Drug Screen Comment Ethyl Alcohol mg/dL (0-3) mg/dl Influenza Type A (PCR) (Neg) Influenza Type B (PCR) (Neg) Blood Type Antibody Screen 08/12/18 08/12/18 08/13/18 Range/Units 16:26 20:22 05:15 WBC 12.03 H (4.8-10.8) K/uL RBC 2.86 L (4.7-6.1) M/uL Hgb 8.7 L (14.0-18.0) g/dL POC Hgb (14.0-18.0) g/dl Hct 26.3 L (42-52) % POC Hct (42-52) % MCV 92.0 (80-100) fL MCH 30.4 (25-34) pg MCHC 33.1 (32-36) g/dL RDW Std Deviation 43.3 (36.4-46.3) fL RDW Coeff of Kami 12.9 (11.5-14.5) % Plt Count 569 H (130-400) K/uL MPV 8.4 (7.4-10.4) fL Immature Gran % (Auto) 1.0 % Neut % (Auto) 69.5 % Lymph % (Auto) 16.3 % Dyer % (Auto) 10.0 % Eos % (Auto) 2.7 % Baso % (Auto) 0.5 % Immature Gran # (Auto) 0.12 H (0.00-0.02) K/uL Neut # (Auto) 8.36 H (1.4-6.5) K/uL Lymph # (Auto) 1.96 (1.2-3.4) K/uL Dyer # (Auto) 1.20 H (0.11-0.59) K/uL Eos # (Auto) 0.33 (0-0.5) K/uL Baso # (Auto) 0.06 (0-0.2) K/uL Hypersegmented Neuts 1+ RBC Morphology PT (9.0-12.0) Seconds INR (0.9-1.1) APTT (21.0-31.0) Seconds PTT Ratio VBG pH (7.36-7.41) VBG pCO2 (38-50) mmHg VBG pO2 mmHg VBG HCO3 mmol/L VBG O2 Saturation % VBG Base Excess mEq/L Carboxyhemoglobin % THgb Barometric Pressure mm/Hg POC Sodium (135-144) mEq/L Sodium (136-145) mmol/L POC Potassium (3.3-5.0) mEq/L Potassium (3.5-5.1) mmol/L POC Chloride (101-112) mEq/L Chloride (98-107) mmol/L Carbon Dioxide (21-32) mmol/L POC Total CO2 (24-31) mEq/l Anion Gap (3-11) POC Anion Gap (16-25) mmol/L POC BUN (7-18) mg/dl BUN (7-18) mg/dl Creatinine (0.6-1.4) mg/dl POC Creatinine (0.6-1.3) mg/dl Est Cr Clr Drug Dosing ml/min Est GFR ( Amer) Est GFR (Non-Af Amer) BUN/Creatinine Ratio (10-20) Glucose (70-99) mg/dl POC Glucose 96 136 H (70-99) POC Glucose (other) (70-99) mg/dl Calcium (8.5-10.1) mg/dl POC Ioniz Calcium Peterson (1.12-1.32) mmol/l Magnesium (1.8-2.4) mg/dl Total Bilirubin (0.2-1) mg/dl Direct Bilirubin (0-0.2) mg/dl AST (15-37) U/L ALT (12-78) U/L Alkaline Phosphatase (45-117) U/L Ammonia (11-32) umol/L Troponin I (0-0.045) ng/ml Total Protein (6.4-8.2) gm/dl Albumin (3.4-5.0) gm/dl Globulin (2.5-4.0) gm/dl Albumin/Globulin Ratio (0.9-2) Vitamin B12 (211-911) pg/ml Folate (>5.38) ng/ml TSH (0.300-4.500) uIu/ml Urine Color Urine Appearance (Clear) Urine pH (4.5-7.5) Ur Specific Campbell (1.000-1.030) Urine Protein (Negative) Urine Glucose (UA) (Negative) Urine Ketones (Negative) Urine Blood (Negative) Urine Nitrite (Negative) Urine Bilirubin (Negative) Urine Urobilinogen (Negative) Ur Leukocyte Esterase (Negative) Urine WBC (Auto) (0-5) /hpf Urine RBC (Auto) (0-4) /hpf U Hyaline Cast (Auto) (0-5) /lpf U Epithel Cells (Auto) (0-5) /lpf Urine Bacteria (Auto) (Negative) Ur Renal Epithelial Cell Amorphous Sediment (None Prsent) Urine Creatinine 2 Urine Opiates Screen (Neg) Ur Opiates Confirm Ur Oxycodone Screen Ur Methadone, Qual (Neg) Ur Methadone Urine Barbiturates (Neg) Ur Barbiturate Confirm Ur Phencyclidine Scrn Ur Phencyclidine (PCP) (Neg) Urine PCP Confirm Ur Amphetamines Screen U Amphetamines Confirm U Amphetamin/Meth Scrn (Neg) MDMA (Ecstasy) Screen (Neg) U OH-Alprazolam Confrm (CUTOFF=25) NG/ML U Benzodiazepines Scrn (Neg) U Benzodiazepine Confm 7-Amino Clonazepam (CUTOFF=25) NG/ML Ur Nordiazepam Confirm (CUTOFF=50) NG/ML U OH-ethylflurazepam (CUTOFF=50) NG/ML U Lorazepam Cnf GC/MS (CUTOFF=50) NG/ML U Oxazepam Confm GC/MS (CUTOFF=50) NG/ML Ur Temazepam Confirm (CUTOFF=50) NG/ML U OH-Triazolam Confirm (CUTOFF=50) NG/ML U OH-Midazolam Confirm (CUTOFF=50) NG/ML Urine Cocaine Ur Cocaine Metabolite (Neg) U Cocaine Metab Confirm U Marijuana (THC) Screen (Neg) U Marijuana (THC) Confirm U THC/Creatinine Ratio Ur Drug Screen Comment Ethyl Alcohol mg/dL (0-3) mg/dl Influenza Type A (PCR) (Neg) Influenza Type B (PCR) (Neg) Blood Type Antibody Screen 08/13/18 08/13/18 08/13/18 Range/Units 05:15 07:16 10:45 WBC (4.8-10.8) K/uL RBC (4.7-6.1) M/uL Hgb (14.0-18.0) g/dL POC Hgb (14.0-18.0) g/dl Hct (42-52) % POC Hct (42-52) % MCV (80-100) fL MCH (25-34) pg MCHC (32-36) g/dL RDW Std Deviation (36.4-46.3) fL RDW Coeff of Kami (11.5-14.5) % Plt Count (130-400) K/uL MPV (7.4-10.4) fL Immature Gran % (Auto) % Neut % (Auto) % Lymph % (Auto) % Dyer % (Auto) % Eos % (Auto) % Baso % (Auto) % Immature Gran # (Auto) (0.00-0.02) K/uL Neut # (Auto) (1.4-6.5) K/uL Lymph # (Auto) (1.2-3.4) K/uL Dyer # (Auto) (0.11-0.59) K/uL Eos # (Auto) (0-0.5) K/uL Baso # (Auto) (0-0.2) K/uL Hypersegmented Neuts RBC Morphology PT (9.0-12.0) Seconds INR (0.9-1.1) APTT (21.0-31.0) Seconds PTT Ratio VBG pH (7.36-7.41) VBG pCO2 (38-50) mmHg VBG pO2 mmHg VBG HCO3 mmol/L VBG O2 Saturation % VBG Base Excess mEq/L Carboxyhemoglobin % THgb Barometric Pressure mm/Hg POC Sodium (135-144) mEq/L Sodium 135 L (136-145) mmol/L POC Potassium (3.3-5.0) mEq/L Potassium 3.9 (3.5-5.1) mmol/L POC Chloride (101-112) mEq/L Chloride 98 (98-107) mmol/L Carbon Dioxide 26 (21-32) mmol/L POC Total CO2 (24-31) mEq/l Anion Gap 11.0 (3-11) POC Anion Gap (16-25) mmol/L POC BUN (7-18) mg/dl BUN 77 H (7-18) mg/dl Creatinine 5.46 H* (0.6-1.4) mg/dl POC Creatinine (0.6-1.3) mg/dl Est Cr Clr Drug Dosing 15.7 ml/min Est GFR ( Amer) 13.3 Est GFR (Non-Af Amer) 11.5 BUN/Creatinine Ratio 14.1 (10-20) Glucose 146 H (70-99) mg/dl POC Glucose 201 H 257 H (70-99) POC Glucose (other) (70-99) mg/dl Calcium 7.5 L (8.5-10.1) mg/dl POC Ioniz Calcium Peterson (1.12-1.32) mmol/l Magnesium (1.8-2.4) mg/dl Total Bilirubin (0.2-1) mg/dl Direct Bilirubin (0-0.2) mg/dl AST (15-37) U/L ALT (12-78) U/L Alkaline Phosphatase (45-117) U/L Ammonia (11-32) umol/L Troponin I (0-0.045) ng/ml Total Protein (6.4-8.2) gm/dl Albumin (3.4-5.0) gm/dl Globulin (2.5-4.0) gm/dl Albumin/Globulin Ratio (0.9-2) Vitamin B12 (211-911) pg/ml Folate (>5.38) ng/ml TSH (0.300-4.500) uIu/ml Urine Color Urine Appearance (Clear) Urine pH (4.5-7.5) Ur Specific Campbell (1.000-1.030) Urine Protein (Negative) Urine Glucose (UA) (Negative) Urine Ketones (Negative) Urine Blood (Negative) Urine Nitrite (Negative) Urine Bilirubin (Negative) Urine Urobilinogen (Negative) Ur Leukocyte Esterase (Negative) Urine WBC (Auto) (0-5) /hpf Urine RBC (Auto) (0-4) /hpf U Hyaline Cast (Auto) (0-5) /lpf U Epithel Cells (Auto) (0-5) /lpf Urine Bacteria (Auto) (Negative) Ur Renal Epithelial Cell Amorphous Sediment (None Prsent) Urine Creatinine 2 Urine Opiates Screen (Neg) Ur Opiates Confirm Ur Oxycodone Screen Ur Methadone, Qual (Neg) Ur Methadone Urine Barbiturates (Neg) Ur Barbiturate Confirm Ur Phencyclidine Scrn Ur Phencyclidine (PCP) (Neg) Urine PCP Confirm Ur Amphetamines Screen U Amphetamines Confirm U Amphetamin/Meth Scrn (Neg) MDMA (Ecstasy) Screen (Neg) U OH-Alprazolam Confrm (CUTOFF=25) NG/ML U Benzodiazepines Scrn (Neg) U Benzodiazepine Confm 7-Amino Clonazepam (CUTOFF=25) NG/ML Ur Nordiazepam Confirm (CUTOFF=50) NG/ML U OH-ethylflurazepam (CUTOFF=50) NG/ML U Lorazepam Cnf GC/MS (CUTOFF=50) NG/ML U Oxazepam Confm GC/MS (CUTOFF=50) NG/ML Ur Temazepam Confirm (CUTOFF=50) NG/ML U OH-Triazolam Confirm (CUTOFF=50) NG/ML U OH-Midazolam Confirm (CUTOFF=50) NG/ML Urine Cocaine Ur Cocaine Metabolite (Neg) U Cocaine Metab Confirm U Marijuana (THC) Screen (Neg) U Marijuana (THC) Confirm U THC/Creatinine Ratio Ur Drug Screen Comment Ethyl Alcohol mg/dL (0-3) mg/dl Influenza Type A (PCR) (Neg) Influenza Type B (PCR) (Neg) Blood Type Antibody Screen BMP 08/13/18 05:15 Sodium 135 L Potassium 3.9 Chloride 98 Carbon Dioxide 26 BUN 77 H Creatinine 5.46 H* Glucose 146 H Calcium 7.5 L
[2018-08-13] MEDS: METOPROLOL TARTRATE 25 MG TAB PO SCH (08:37)
[2018-08-13] MEDS: METOCLOPRAMIDE HCL 10 MG TABLET PO SCH ×2 (08:37→12:12)
[2018-08-13] MEDS: SERTRALINE HCL 50 MG TABLET PO SCH (08:38)
[2018-08-13] MEDS: ONDANSETRON INJ 2 MG/ML 2 ML VIAL IV PRN ×2 (08:43→15:43)
[2018-08-13] MEDS ORDERED: INSULIN GLARGINE SOLOSTAR 100 UNITS/ML 3 ML PEN SC SCH (09:00)
--- NOTE | 2018-08-13 09:30 | Pharmacy Report ---
Pharmacy Glycemic Short Note 2 - Date of Service August 13, 2018 - Glycemic Short BSG Results (Last 24 hours): 08/12/18 08/12/18 08/12/18 11:18 16:26 20:22 Glucose POC Glucose 219 H 96 136 H 08/13/18 08/13/18 05:15 07:16 Glucose 146 H POC Glucose 201 H OUTPATIENT ANTIDIABETIC REGIMEN: Humalog pump * A1c = 8.4 % 06/03/18 ASSESSMENT: 08/13/18 * Mr. De Los Santos received 28 units of insulin yesterday (16 of this was basal). Fasting on PRP was 146 mg/dL; however, point of care was 201 mg/dL. I'm hesitant to react to this high BSG until we start to see a trend. * A trend we are consistently seeing is a high pre-lunch BSG. Will plan to tighten CR for breakfast only to combat this. 08/12/18 * 4 units of HS lantus yields improved am FBS. I did adjust the AM lantus dose: give 12 units for BSGs <180mg/dL, give 14 units for BSGs >/=180mg/dL bc of some borderline BSGs yesterday evening. 08/11/18 * 3 units of HS lantus have improved FBS and lunch BSGs. Will increase Mr. De Los Santos's HS lantus from 3---> 4 units. I am cautious in titrating his HS dose due to the labile nature of his DM-I and his propensity of fasting lows. 08/10/18 * Will add a small HS lantus dose tonight: over the preceding 48hrs his FBS and lunch BSG have all been elevated. dinner BSGs and HS BSGs all euglycemic. 08/07/18 * Hypoglycemia resolved * Fasting BSG is at goal. I will order a one time dose of 15 units of Lantus for today then per scale. During previous admissions he has required Lantus 10-18 units per day. Continue current Novolog coverage 08/06/18 * Mr. De Los Santos is a 47yo M p/w acute encephalopathy. He had some concerning lows in the ER; humalog pump was removed a few hours ago, necessitating metabolic insulin sanjana. He is known to the pharmacy glycemic service from previous admissions. PMHx: consistent with DM-I, CKD-III, HTN, GERD, gastroparesis. * If he starts having lows post-prandially, consider novolog---> SQ regular insulin to help mimic his impaired carb absorption. PLAN FOR INPATIENT GLYCEMIC CONTROL: * Basal insulin - remove scale for AM dose to continue with total basal of 16 units Lantus 12 units qAM Lantus 4 units qHS, historically he is prone to extreme AM lows with doses >5units at HS * Bolus insulin - tighten CR w/ breakfast only * NovoLog per scale ACHS or Q6hrs while NPO * Goal Range: Low 120 mg/dL - High 160 mg/dL * Correction Factor: 30 mg/dL/unit * Nutritional / Prandial insulin per carb ratio of 1 unit per 10 grams CHO consumed (1 unit per 8 grams CHO with breakfast only)
--- NOTE | 2018-08-13 09:32 | XRay Report ---
XR chest 2V routine CLINICAL HISTORY: 47 years-old Male presenting with f/u pleural effusions. TECHNIQUE: PA and lateral views of the chest were obtained. COMPARISON: 08/06/2018. FINDINGS: Cardiac silhouette moderately enlarged. Significantly decreased pulmonary vascular prominence and bib asilar opacities. Persistent small left pleural effusion, which is stable to slight increased from pr ior. Some degree of left basilar opacity persists. Right lung and pleural space now clear. No pneumot horax. Several overlying external leads degrade evaluation of the thorax. Osseous structures normal. Upper abdomen normal. IMPRESSION: 1. Significantly improved pulmonary edema and volume overload with persistent small left pleural eff usion and left basilar atelectasis. Electronically signed by: Jose Zaldivar M.D. 08/13/2018 9:30 AM
[2018-08-13] MEDS: AMLODIPINE BESYLATE 5 MG TAB PO SCH (09:44)
[2018-08-13] MEDS: HEPARIN SOD 5,000 UNIT/0.5 ML VIAL SQ SCH (09:45)
--- NOTE | 2018-08-13 09:59 | Urology Progress Note ---
Date of Service August 13, 2018 Assessment & Plan (1) Urinary retention: 47yo M with TIDM with gastroparesis and CKDIII presents with urinary retention, concurrently with other medical issues. Catheter removed this AM per order. Okay to replace indwelling parker catheter if no spontaneous void in 6 hours. If able to spontaneously void, please bladder scan qshift and PRN. If PVR >500cc, please replace indwelling catheter. Orders adjusted to reflect this recommendations. Patient will require thorough urologic evaluation to determine cause of bladder dysfunction as outpatient, agree that DM is likely playing significant role. 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 We will arrange for close outpatient f/u to be arranged by our office. If requires replacement of indwelling catheter, please maintain upon discharge. Thank you for the consultation. Please reconsult us with additional questions, concerns or changes in patient status . Subjective 47yo M with TIDM with gastroparesis and CKDIII presents with urinary retention, concurrently with other medical issues. Parker catheter removed per order this AM. Patient has not voided yet. Denies any new issues or concerns for me today. Denies n/v/f/c. Review of Systems All systems reviewed & are unremarkable except as noted in HPI & below Physical Exam Vital Signs (Past 24 Hours): Last Vital Signs Temp 36.7 C 08/13/18 07:17 Pulse 81 08/13/18 07:27 Resp 18 08/13/18 07:17 BP 177/86 H 08/13/18 07:17 Pulse Ox 95 08/13/18 07:17 Physical Exam: A&Ox3 RRR abd soft, nontender no suprapubic tenderness on palpation Results & Data Laboratory Results Laboratory Results - last 48 hr 08/07/18 08/11/18 08/11/18 10:35 11:19 15:55 WBC RBC Hgb Hct MCV MCH MCHC RDW Std Deviation RDW Coeff of Kami Plt Count MPV Immature Gran % (Auto) Neut % (Auto) Lymph % (Auto) Person % (Auto) Eos % (Auto) Baso % (Auto) Immature Gran # (Auto) Neut # (Auto) Lymph # (Auto) Person # (Auto) Eos # (Auto) Baso # (Auto) Hypersegmented Neuts RBC Morphology Sodium Potassium Chloride Carbon Dioxide Anion Gap BUN Creatinine Est Cr Clr Drug Dosing Est GFR ( Amer) Est GFR (Non-Af Amer) BUN/Creatinine Ratio Glucose POC Glucose 222 H 85 Calcium Magnesium Total Bilirubin Direct Bilirubin AST ALT Alkaline Phosphatase Total Protein Albumin Vitamin B12 Folate Urine Color Urine Appearance Urine pH Ur Specific [place] Urine Protein Urine Glucose (UA) Urine Ketones Urine Blood Urine Nitrite Urine Bilirubin Urine Urobilinogen Ur Leukocyte Esterase Urine WBC (Auto) Urine RBC (Auto) U Hyaline Cast (Auto) U Epithel Cells (Auto) Urine Bacteria (Auto) U OH-Alprazolam Confrm NEGATIVE 7-Amino Clonazepam NEGATIVE Ur Nordiazepam Confirm 96 A U OH-ethylflurazepam NEGATIVE U Lorazepam Cnf GC/MS NEGATIVE U Oxazepam Confm GC/MS 475 A Ur Temazepam Confirm 276 A U OH-Triazolam Confirm NEGATIVE U OH-Midazolam Confirm NEGATIVE 08/11/18 08/11/18 08/12/18 20:14 21:00 05:21 WBC 12.07 H RBC 2.66 L Hgb 8.1 L Hct 24.4 L MCV 91.7 MCH 30.5 MCHC 33.2 RDW Std Deviation 43.0 RDW Coeff of Kami 12.9 Plt Count 515 H MPV 8.0 Immature Gran % (Auto) 1.2 Neut % (Auto) 68.1 Lymph % (Auto) 17.6 Person % (Auto) 9.9 Eos % (Auto) 2.9 Baso % (Auto) 0.3 Immature Gran # (Auto) 0.15 H Neut # (Auto) 8.21 H Lymph # (Auto) 2.12 Person # (Auto) 1.20 H Eos # (Auto) 0.35 Baso # (Auto) 0.04 Hypersegmented Neuts RBC Morphology Unremarkable Sodium Potassium Chloride Carbon Dioxide Anion Gap BUN Creatinine Est Cr Clr Drug Dosing Est GFR ( Amer) Est GFR (Non-Af Amer) BUN/Creatinine Ratio Glucose POC Glucose 95 Calcium Magnesium Total Bilirubin Direct Bilirubin AST ALT Alkaline Phosphatase Total Protein Albumin Vitamin B12 Folate Urine Color Yellow Urine Appearance Clear Urine pH 5.5 Ur Specific [place] 1.017 Urine Protein 3+ H Urine Glucose (UA) Trace H Urine Ketones Negative Urine Blood 1+ H Urine Nitrite Negative Urine Bilirubin Negative Urine Urobilinogen Negative Ur Leukocyte Esterase Trace H Urine WBC (Auto) 1-5 Urine RBC (Auto) 5-10 H U Hyaline Cast (Auto) 0 U Epithel Cells (Auto) 10-20 H Urine Bacteria (Auto) Negative U OH-Alprazolam Confrm 7-Amino Clonazepam Ur Nordiazepam Confirm U OH-ethylflurazepam U Lorazepam Cnf GC/MS U Oxazepam Confm GC/MS Ur Temazepam Confirm U OH-Triazolam Confirm U OH-Midazolam Confirm 08/12/18 08/12/18 08/12/18 05:21 05:21 07:30 WBC RBC Hgb Hct MCV MCH MCHC RDW Std Deviation RDW Coeff of Kami Plt Count MPV Immature Gran % (Auto) Neut % (Auto) Lymph % (Auto) Person % (Auto) Eos % (Auto) Baso % (Auto) Immature Gran # (Auto) Neut # (Auto) Lymph # (Auto) Person # (Auto) Eos # (Auto) Baso # (Auto) Hypersegmented Neuts RBC Morphology Sodium 138 Potassium 3.8 Chloride 99 Carbon Dioxide 29 Anion Gap 10.0 BUN 89 H Creatinine 5.42 H* Est Cr Clr Drug Dosing 15.9 Est GFR ( Amer) 13.4 Est GFR (Non-Af Amer) 11.6 BUN/Creatinine Ratio 16.3 Glucose 133 H POC Glucose 165 H Calcium 7.5 L Magnesium 2.1 Total Bilirubin 0.2 Direct Bilirubin < 0.1 AST 12 L ALT 19 Alkaline Phosphatase 98 Total Protein 5.5 L Albumin 2.0 L Vitamin B12 465 Folate 17.61 Urine Color Urine Appearance Urine pH Ur Specific [place] Urine Protein Urine Glucose (UA) Urine Ketones Urine Blood Urine Nitrite Urine Bilirubin Urine Urobilinogen Ur Leukocyte Esterase Urine WBC (Auto) Urine RBC (Auto) U Hyaline Cast (Auto) U Epithel Cells (Auto) Urine Bacteria (Auto) U OH-Alprazolam Confrm 7-Amino Clonazepam Ur Nordiazepam Confirm U OH-ethylflurazepam U Lorazepam Cnf GC/MS U Oxazepam Confm GC/MS Ur Temazepam Confirm U OH-Triazolam Confirm U OH-Midazolam Confirm 08/12/18 08/12/18 08/12/18 11:18 16:26 20:22 WBC RBC Hgb Hct MCV MCH MCHC RDW Std Deviation RDW Coeff of Kami Plt Count MPV Immature Gran % (Auto) Neut % (Auto) Lymph % (Auto) Person % (Auto) Eos % (Auto) Baso % (Auto) Immature Gran # (Auto) Neut # (Auto) Lymph # (Auto) Person # (Auto) Eos # (Auto) Baso # (Auto) Hypersegmented Neuts RBC Morphology Sodium Potassium Chloride Carbon Dioxide Anion Gap BUN Creatinine Est Cr Clr Drug Dosing Est GFR ( Amer) Est GFR (Non-Af Amer) BUN/Creatinine Ratio Glucose POC Glucose 219 H 96 136 H Calcium Magnesium Total Bilirubin Direct Bilirubin AST ALT Alkaline Phosphatase Total Protein Albumin Vitamin B12 Folate Urine Color Urine Appearance Urine pH Ur Specific [place] Urine Protein Urine Glucose (UA) Urine Ketones Urine Blood Urine Nitrite Urine Bilirubin Urine Urobilinogen Ur Leukocyte Esterase Urine WBC (Auto) Urine RBC (Auto) U Hyaline Cast (Auto) U Epithel Cells (Auto) Urine Bacteria (Auto) U OH-Alprazolam Confrm 7-Amino Clonazepam Ur Nordiazepam Confirm U OH-ethylflurazepam U Lorazepam Cnf GC/MS U Oxazepam Confm GC/MS Ur Temazepam Confirm U OH-Triazolam Confirm U OH-Midazolam Confirm 08/13/18 08/13/18 08/13/18 05:15 05:15 07:16 WBC 12.03 H RBC 2.86 L Hgb 8.7 L Hct 26.3 L MCV 92.0 MCH 30.4 MCHC 33.1 RDW Std Deviation 43.3 RDW Coeff of Kami 12.9 Plt Count 569 H MPV 8.4 Immature Gran % (Auto) 1.0 Neut % (Auto) 69.5 Lymph % (Auto) 16.3 Person % (Auto) 10.0 Eos % (Auto) 2.7 Baso % (Auto) 0.5 Immature Gran # (Auto) 0.12 H Neut # (Auto) 8.36 H Lymph # (Auto) 1.96 Person # (Auto) 1.20 H Eos # (Auto) 0.33 Baso # (Auto) 0.06 Hypersegmented Neuts 1+ RBC Morphology Sodium 135 L Potassium 3.9 Chloride 98 Carbon Dioxide 26 Anion Gap 11.0 BUN 77 H Creatinine 5.46 H* Est Cr Clr Drug Dosing 15.7 Est GFR ( Amer) 13.3 Est GFR (Non-Af Amer) 11.5 BUN/Creatinine Ratio 14.1 Glucose 146 H POC Glucose 201 H Calcium 7.5 L Magnesium Total Bilirubin Direct Bilirubin AST ALT Alkaline Phosphatase Total Protein Albumin Vitamin B12 Folate Urine Color Urine Appearance Urine pH Ur Specific [place] Urine Protein Urine Glucose (UA) Urine Ketones Urine Blood Urine Nitrite Urine Bilirubin Urine Urobilinogen Ur Leukocyte Esterase Urine WBC (Auto) Urine RBC (Auto) U Hyaline Cast (Auto) U Epithel Cells (Auto) Urine Bacteria (Auto) U OH-Alprazolam Confrm 7-Amino Clonazepam Ur Nordiazepam Confirm U OH-ethylflurazepam U Lorazepam Cnf GC/MS U Oxazepam Confm GC/MS Ur Temazepam Confirm U OH-Triazolam Confirm U OH-Midazolam Confirm
--- NOTE | 2018-08-13 14:18 | Nephrology Progress Note ---
Date of Service August 13, 2018 Assessment & Plan (1) KRYSTAL (acute kidney injury): Patient with rapidly progressive renal insufficiency. Cr stable at 5.4 today. Responded well to Lasix drip. Volume status is now euvolemic. Electrolytes are stable. No indications for renal replacement therapy. He continues to make urine even without diuretics. Creatinine has stagnated at 5.5. Patient would like to go home. Agree with discharge. He will take Lasix 40 mg daily as needed. I have asked him to monitor his weight. He will check today's weight at home as his baseline. And he will only take Lasix if he gains more than 2 pounds in a day. He will need renal follow-up in 1-2 weeks. He w ould like to switch to a stitcher hand in the area. I offered to see him or 1 of my partners either in [place] or [place]. (2) Pulmonary edema: Improving, still good diuresis even of Lasix. Monitor daily weight -limited sodium and started FR 1.5L -We will give Lasix as needed if patient starts gaining weight. (3) Essential hypertension: His blood pressure is above target today. Increased hydralazine 50 mg 3 times daily. Subjective Seen in f/u for KRYSTAL and volume overload. He feels better today. No SOB. His leg swelling has subsided. urine output 2 L and net - 0.6L off Lasix. No nausea or vomiting. He is lying in bed. He would like to be discharged home and promises to follow-up with outpatient physicians Review of Systems All systems reviewed & are unremarkable except as noted in HPI & below Physical Exam Vital Signs (Past 24 Hours): Last Vital Signs Temp 36.5 C 08/13/18 10:42 Pulse 79 08/13/18 10:42 Resp 18 08/13/18 10:42 BP 176/83 H 08/13/18 10:42 Pulse Ox 97 08/13/18 10:42 Physical Exam: General exam: Appears comfortable, no acute distress HEENT: Pupils are equal and reactive to light Neck: No JVD, neck is supple trachea is midline Respiratory system: Clear breath sounds bilaterally. Gastrointestinal: Abdomen is soft, non distended, non tender, bowel sounds are present CVS: Regular rate and rhythm. No murmurs, rubs or gallops Musculoskeletal: No joint or muscle tenderness Extremities: Non tender, no edema, peripheral pulses are present Neuro: Oriented, no tremors, no focal neurological deficits Skin: No rashes Results & Data Laboratory Results 3.9, creatinine 5.4, BUN of 97 (1) Pulmonary edema Chronicity: acute Qualified Code(s): J81.0 - Acute pulmonary edema
[2018-08-13] MEDS ORDERED: INSULIN HUMAN LISPRO (humaLOG) 100 UNITS/ML VIAL SC PRN (14:30)
--- NOTE | 2018-08-13 14:34 | Pharmacy Report ---
Pharmacy Glycemic Short Note 2 - Date of Service August 13, 2018 - Glycemic Short BSG Results (Last 24 hours): 08/12/18 08/12/18 08/13/18 16:26 20:22 05:15 Glucose 146 H POC Glucose 96 136 H 08/13/18 08/13/18 07:16 10:45 Glucose POC Glucose 201 H 257 H OUTPATIENT ANTIDIABETIC REGIMEN: Humalog pump * A1c = 8.4 % 06/03/18 DISCHARGE RECOMMENDATIONS: Resume home humalog insulin pump Pump basal settings will require adjustment from now until 08/14/18 AM (this is because Jorge Alberto was given a dose of Lantus 12 units on 08/13 in the morning) * Home basal rate should be reduced by 50% (0.05 units/hr) * Blood glucose should be checked at least every 4 hours to monitor for hypoglycemia * If you experience signs/symptoms of hypoglycemia, recheck blood sugar sooner 39 AM @ 0800: * Resume basal pump settings determined by your outpatient physician that manages your diabetes (Dr. Vincent) Recommend prompt follow up with outpatient provider to determine if settings remain appropriate
--- NOTE | 2018-08-13 15:09 | Discharge Summary ---
Date of Service August 13, 2018 Admission HPI Per Admitting Provider Mr. De Los Santos is a 47 y/o male with PMHx of T1DM (insulin pump), CKD III, HTN, Anemia, and Gastroparesis who presents to the ED c/o lethargy and SOB. Most of HPI obtained by father at bedside as patient mostly sleeping. However, when awake patient is alert and oriented and answers questions appropriately. Occasionally would answer questions asked even though eyes are closed. He states he was in his normal state of health yesterday but had some worsening SOB from baseline. Father states this AM they tried to wake him up and he only complained of SOB but denies appearing in distress. They stated they could barely awaken him and had to call 911 because they could not lift him. Pt and father denies any other URI symptoms or appearing ill. They do note he has had progressive edema since needing IVF for a previous admission with gastroparesis. He was started on Lasix 20 mg BID last week and reports only minimal change in lower extremity edema and patient denies increased urine output since starting Lasix. Per ED note, there was complaints of CP but patient denied that during my exam. On last admission (mid July) he was advised to stop Mirtazapine and Valium until F/U with PCP as it was likely contributing to lethargy. Pt was also noted to have hypoglycemia this AM in the 50-60s and his insulin pump has been removed at this time. Father did pull me aside to state the lethargy has been a progressive thing. They notice he will act more lethargic this them but more awake/alert with home health. He went from being an independent person with a job to nearly dependent on his parents. Father states he will sleep majority of the day. Pt's filed for divorce approx. 3 weeks ago and reports multiple social stressors on top of medical stessors. Father feels his lethargy likely has something to do with his mental health. Pt was due to start seeing a therapist today however will miss this appointment due to hospitalization. Principal Diagnosis Acute kidney injury in the setting of CKD Stage III, Volume overload Discharge Exam Constitutional no acute distress Eyes PERRL, conjunctivae normal, anicteric sclerae ENMT external ear and nose normal, oropharynx normal Neck trachea midline, no thyromegaly Respiratory normal respiratory effort, lungs clear to auscultation Cardiovascular RRR, no murmur, no edema Gastrointestinal (Abdomen) normal bowel sounds, soft, nontender, no hepatosplenomegaly Musculoskeletal Extremities: extremities normal to inspection; no cyanosis and no clubbing Skin no rashes, warm and dry (With nails bitten down with dried blood) Neurologic moves all extremities and awake; no focal motor deficits Psychiatric A+Ox3, euthymic affect Discharge Data Allergies Allergy/AdvReac Type Severity Reaction Status Date / Time shellfish derived Allergy Severe anaphylaxis Verified 08/06/18 10:26 promethazine Allergy Intermediate itchy/hives Verified 08/06/18 10:26 Consultations 08/06/18 12:09 Consult Nephrology Routine 08/06/18 12:14 Consult Psychiatry Routine 08/07/18 09:09 Consult Cardiology Routine 08/11/18 18:04 Consult Urology Routine Procedures Performed ECHO Ordered Studies 08/06/18 20:24 US renal/blad retro comp Routine CXRs Hospital Course (1) Volume overload: Marked improvement/resolved. Continues to autodiurese off all lasix x 4 days now Has now had a 13.7 kg weight loss since admisson after being on a Lasix drip. Continues to appear euvolemic Have since stopped the Lasix drip Creatinine continues to be improved/stable today Volume overload was likely due to his acute renal failure rather than diastolic CHF. Echo with preserved EF. Appreciate nephrology assistance. Discussed with Nephro--> pt anxious for discharge--> will dc to home with close f/u with daily weights, fluid restriction of 1500 mL/day, prn lasix for weight gain>2 lbs, repeat BMP in 5 days and f/u with Nephrology within 1 week (2) KRYSTAL (acute kidney injury): In setting of CKD stage 3. Creatinine worsened in the face of diuresis but he has lost 13 kg of weight with lasix infusion and feels markedly better. Some of the worsening creatinine is certainly to his copious diuresis on the lasix drip which is now discontinued. Lead Portfolio Manager has improved down to 5.46 on day of discharge Despite the worsening in the creatinine, his acid/base status is acceptable, potassium continues to be normal, he has no symptoms of uremia, and volume status is normal. Thus, emergent or urgent dialysis is not needed at this time. With that said he may need HD in the next few weeks/months if renal function continues to worsen as it has done in the last 1-2 months. Defer to nephrology when an AV fistula should be created. Appreciate nephrology assistance. (3) Acute encephalopathy: Resolved. Was likely due to side effects from remeron in setting of renal failure. Remeron was d/c at admission. (4) Type 1 diabetes: Insulin pump on hold during admission and restarted upon discharge. Hemoglobin A1c 8.4% in 05/2018 He received basal-bolus SC insulin while here--> restart insulin pump at half normal dosing as received Lantus the day of dc--> check glucose q4 hrs until tomorrow, then can increase to usual pump dosing (5) Diabetic gastroparesis: Cont reglan 10mg ac/hs as previous. Eating ok. (6) Essential hypertension: uncontrolled in the face of his acute kidney injury, but improved somewhat, still in 160s-170s systolic at times, others in the 130s systolic cont norvasc 10 mg daily -added metoprolol 25mg BID. -Nephrology added hydralazine 25 mg p.o. 3 times daily follow as outpt (7) Depression: Numerous psychosocial stressors including separation from his , not seeing his 2 kids (only 1x/week), move to [place] from [place], etc. Remeron discontinued to excessive sedation Appreciate psychiatry recommendations. Cont Zoloft 50mg daily -arrangements made by Psych for [facility] to contact pt for Psych intake (8) Anemia: Likely due to ACD from CKD. CBC again acceptable today with hemoglobin stable at 8.7 B12 and folate normal (9) Pericardial effusion: Called moderate on ECHO by one Real Estate Office Supervisor and another reviewed and thought was mild seen by cardiology - Dr. Romero. - likely due to progressive renal disease. It is not causing any tamponade physiology. No Rx needed. Diurese. (10) Chronic kidney disease (CKD), stage III (moderate): baseline Cr 2 to 2.5. renal u/s w/o obstruction. has had progression of his diabetic nephropathy over the last 5-6 months. has significant proteinuria. appreciate nephrology assistance. followed by [facility]. (11) Urinary retention: -Had significant retention and did not have the sensation to void prior to parker insertion this admission. if this was chronic there should have been hydronephrosis on renal u/s (ultrasound did not show any hydro). acute retention -unclear cause-could have neurogenic bladder from diabetic neuropathy Less likely that he has BPH given his young age but is possible Urinalysis not indicative of infection but could have prostatitis regardless - consulted urology for further evaluation--> removed Parker on 08/12 and passed trial of void -may end up needing CIC at home if recurs if from neurogenic bladder-f/u with Urology as outpt (12) Hyponatremia: 2nd to acute renal failure and diuretics. Now resolved, Na+ 135 -Follow BMP in 5 days as outpt (13) Leukocytosis: WBC count remains at 12 for several days--> historically he frequently has a leukocytosis, neutrophilia and monocytosis present which is nonspecific Also with thrombocytosis persistently in the 500s Most likely secondary to inflammatory response due to illness and KRYTSAL given both WBCs and plts elevated No source of infection found -Follow CBC as outpt and if not improving, consider referral to Heme (14) Thrombocytosis: Platelets in the 500s, as above (15) DVT prophylaxis: Heparin q12 was provided Disposition-stable for dc to home today with close follow up Total Time Total Time Spent Total Time Spent (In Minutes): >30 min Total Time Includes: Examination of the Patient, Discharge Planning, Medication Reconciliation and Communication With Other Providers (Nephrology) Discharge Plan Discharge Items Patient Disposition: Home - Self-Care Reason For Visit: SHORTNESS OF BREATH; METABOLIC ENCEPHALOPATHY Discharge Diagnosis: Acute on chronic kidney disease Condition: Good Discharge Goals: Decrease discomfort, Diagnostic testing, Improve disease control and Therapeutic intervention Activity: Resume your previous activity Lifting: Gradually increase as tolerated Bathing: No limitations Non-emergency contact: Primary Care Provider and Computer Terminal Operator Call non-emergency contact if: you have any medication questions and your symptoms worsen Follow-up/Referrals: Andrew Li MD [Primary Care Provider] - 08/18/18 11:00 am (follow up primary care appointment) Suman Montilla MD [Physician] - (Follow up appointment with kidney specialist within 1 week The office will call you with an appointment date and time) Diet: Carb Count or DM1, Dialysis Renal and Low Sodium (2gm) Fluids: 1500ml (6 cups) Other Ambulatory Orders: Basic Metabolic Panel (Routine) Timeframe: 5 Days Location: Determined by Patient Ordered By: Mireille Ponce Complete Blood Count with Diff (Routine) Timeframe: 5 Days Location: Determined by Patient Ordered By: Mireille Mcguire Provider Instructions: You were admitted with volume overload secondary to acute kidney failure. You were treated with IV lasix and lost approximately 30 lbs of water weight. Your kidney function is still quite poor but seems to have stabilized. Please weigh yourself every day and if you gain more than 2 lbs from one day to the next, please take the lasix 40mg tablet. Your blood pressure was quite elevated due to your kidney failure. You were started on 2 new medications for this called hydralazine and metoprolol. You should check your blood pressure every day and keep a record of the readings. If you develop worsening shortness of breath, chest pain, or your urine amount decreases, please call your doctor right away. Also, if you are unable to void, please call the Urologist or come to the ER. Please follow up with the Urologist within 1-2 weeks, the Computer Terminal Operator in 1 week, and your PCP as scheduled. For your insulin pump: DISCHARGE RECOMMENDATIONS: Resume home humalog insulin pump Pump basal settings will require adjustment from now until 08/14/18 AM (this is because Jorge Alberto was given a dose of Lantus 12 units on 08/13 in the morning) Home basal rate should be reduced by 50% Blood glucose should be checked at least every 4 hours to monitor for hypoglycemia If you experience signs/symptoms of hypoglycemia, recheck blood sugar sooner 39 AM @ 0800: Resume basal pump settings determined by your outpatient physician that manages your diabetes Recommend prompt follow up with outpatient provider to determine if settings remain appropriate Prescriptions: New hydralazine 25 mg Tablet 25 mg PO TID Qty: 90 RF: 0 sertraline 50 mg Tablet 50 mg PO QAM Qty: 30 RF: 0 metoprolol tartrate 25 mg Tablet 25 mg PO BID Qty: 60 RF: 0 furosemide [Lasix] 40 mg tablet 40 mg PO DAILY PRN (Reason: weight gain > 2 lbs/24hrs) Qty: 30 RF: 0 Continued ondansetron HCl [Zofran] 4 mg Tablet 4 mg PO QID PRN (Reason: Nausea) Qty: 0 RF: 0 prochlorperazine [Compazine] 25 mg [address]ository [address] Q12H Qty: 0 RF: 0 insulin pump-infus. set-meter PUMP 1 dose Not Applicable UD Qty: 0 RF: 0 metoclopramide HCl [Reglan] 10 mg Tablet 10 mg PO QID PRN (Reason: Nausea) Qty: 6 RF: 0 amlodipine 10 mg tablet 10 mg PO QAM RF: 0 Stand-Alone Forms: [facility] Discharge Orders: Discharge Order (Routine); Ordered 08/13/18 Ordered By: Mireille Ponce Admission Data Admit Date/Time: 08/06/18 12:09 Attending Provider: Mireille Ponce Admit Provider: Guevara Townsend Primary Care Provider: Andrew Li Other Providers: Guevara Townsend ; Jorge Alberto Romero ; Ethel Ocampo ; Lor Guadalupe ; Home,Nursing Agency ; Alex Fontenot Service: Telemetry Other Interventions: Discharge Summary Assessment (RN) Last Done: 08/13/18 15:33 Pending Studies at Discharge: No DC Date/Time DO NOT enter until pt leaves facility: 08/13/18 16:00
== END 2018-08-13 16:00 | disposition home health service (06) | DRG 682 ==
LOC: ED 09:49 → SUATTDRO 12:09 → 2S 12:09

== ENCOUNTER 2018-09-10 18:37 | Inpatient (IN) ==
[2018-09-10] MEDS ORDERED: ONDANSETRON INJ 2 MG/ML 2 ML VIAL IV STA (19:36)
[2018-09-10] MEDS ORDERED: SODIUM CHLORIDE 0.9% 1000ML 2,000 ML IV SCH (19:45)
[2018-09-10 20:01] LABS: Basophils # (auto) 0.04 K/uL (0-0.2); Basophils % (auto) 0.2 %; Eosinophils # (auto) 0.04 K/uL (0-0.5); Eosinophils % (auto) 0.2 %; Hematocrit (blood only) 28.1 % (42-52); Hemoglobin 9.2 g/dL (14.0-18.0); Immature Granulocytes # (auto) 0.08 K/uL (0.00-0.02); Immature Granulocytes % (auto) 0.5 %; Lymphocytes # (auto) 1.17 K/uL (1.2-3.4); Lymphocytes % (auto) 6.6 %; Mean Corpuscular Hgb Conc 32.7 g/dL (32-36); Mean Corpuscular Volume 91.5 fL (80-100); Mean Platelet Volume 8.9 fL (7.4-10.4); Monocytes # (auto) 0.69 K/uL (0.11-0.59); Monocytes % (auto) 3.9 %; Neutrophils # (auto) 15.64 K/uL (1.4-6.5); Neutrophils % (auto) 88.6 %; Platelet Count 457 K/uL (130-400); RDW Coefficient of Variation 13.4 % (11.5-14.5); RDW Standard Deviation 44.6 fL (36.4-46.3); Red Blood Count 3.07 M/uL (4.7-6.1); White Blood Count 17.66 K/uL (4.8-10.8)
[2018-09-10 20:12] LABS: Partial Thromboplastin Ratio 0.8; Partial Thromboplastin Time 22.2 Seconds (21.0-31.0); Prothrombin Time 10.3 Seconds (9.0-12.0)
[2018-09-10 20:46] LABS: Base Excess VBG -7.6 mEq/L; Oxygen Saturation VBG 92.5 %; pH VBG 7.36 (7.36-7.41)
[2018-09-10 20:59] LABS: Alanine Aminotransferase 28 U/L (12-78); Albumin Globulin Ratio 0.8 (0.9-2); Alkaline Phosphatase 104 U/L (45-117); BUN Creatinine Ratio 17.2 (10-20); Bilirubin,Total 0.4 mg/dl (0.2-1); Blood Urea Nitrogen 81 mg/dl (7-18); Calcium 9.3 mg/dl (8.5-10.1); Carbon Dioxide 18 mmol/L (21-32); Chloride 106 mmol/L (98-107); Creatinine Clr Calc Pharmacy 17.8 ml/min; Est GFR (African American) 15.7; Est GFR (Non-African American) 13.5; Glucose 236 mg/dl (70-99); Sodium 137 mmol/L (136-145); Troponin I < 0.015 ng/ml (0-0.045)
[2018-09-10 21:08] LABS: Aspartate Aminotransferase 12 U/L (15-37); Potassium 4.5 mmol/L (3.5-5.1)
--- NOTE | 2018-09-10 21:22 | XRay Report ---
XR abdomen 2V w PA chest CLINICAL HISTORY: 48 years-old Male presenting with vomiting. TECHNIQUE: PA view of the chest and supine and upright views of the abdomen were obtained. COMPARISON: Chest x-ray from 09/09/2018 and plain radiograph from 06/02/2018. FINDINGS: Cardiac silhouette top normal in size. Lungs and pleural spaces clear. Punctate hyperdensities in the region of the ascending colon likely related to medication menstruatio n. Mild stool burden noted throughout the colon. Nonobstructive bowel gas pattern. No gross pneumoper itoneum. Calcification projects over the lower pole of the right kidney correlating to the known right renal c alculus. Osseous structures normal. IMPRESSION: 1. No acute cardiopulmonary disease. 2. Right nephrolithiasis. 3. Mild stool burden. No other evidence of acute intra-abdominal pathology. Electronically signed by: Jose Zaldivar M.D. 09/10/2018 9:21 PM
--- NOTE | 2018-09-10 23:21 | Emergency Department Note ---
Entered by Belinda White acting as a scribe for History of Present Illness General Chief complaint: Vomiting Stated complaint: vomiting Source: patient and family Mode of arrival: ambulatory Limitations: no limitations History of Present Illness Provider complaint: Vomiting Onset (ago): hour(s) (a few hours prior to arrival) Location: mouth Radiation: non-radiation Pain Consistency: + other (persistent) Maximum Pain Intensity: 7 Quality: + other (vomiting) Associated symptoms: + other (Additional symptoms: hyperglycemia, low back pain. Denies: abdominal pain, abdominal distension, melena, hematochezia); no fever/chills The patient is a 48 year old male with a history of an appendectomy, CKD, gastroparesis due to type 1 diabetes, anxiety, hypertension, and acid reflux who presents to the Emergency Room with complaints of persistent vomiting starting a few hours prior to arrival. Per family, the patient was here yesterday for s imilar symptoms. The patient has reportedly been nauseous since discharge and began heaving this evening. The family member reports that the patient was instructed to return to the ER if his symptoms worsened, so the patient was brought to the ER tonight rather than to his PCP. The patient notes that his blood sugar levels have been elevated in the 300 range. He also complains of low back pain secondary to a fall 3 days ago, but he denies any abdominal pain, abdominal distention, melena, hematochezia, and fevers. Home Medications Home Medications Medication Instructions Recorded Confirmed Type metoclopramide HCl [Reglan] 10 mg PO QID PRN #6 tab 11/26/17 09/10/18 History metoprolol tartrate 25 mg PO BID #60 tab 08/13/18 09/10/18 Rx sertraline 50 mg PO QAM #30 tab 08/13/18 09/10/18 Rx ondansetron 4 mg PO Q8H PRN #10 tab 09/09/18 09/10/18 Rx amlodipine 10 mg PO QAM 09/10/18 09/10/18 History atorvastatin 10 mg PO DAILY 09/10/18 09/10/18 History cholecalciferol (vitamin D3) 2,000 units PO QAM 09/10/18 09/10/18 History [Vitamin D3] furosemide 20 mg PO BID PRN 09/10/18 09/10/18 History hydralazine 25 mg PO TID 09/10/18 09/10/18 History insulin lispro [Humalog U-100 1 sliding scale dose SUBCUT 09/10/18 09/10/18 History Insulin] CONTINOUS Allergies Allergy/AdvReac Type Severity Reaction Status Date / Time shellfish derived Allergy Severe anaphylaxis Verified 09/10/18 20:39 promethazine Allergy Intermediate itchy/hives Verified 09/10/18 20:39 codeine Allergy Unknown Hives Verified 09/10/18 20:39 Past Med/Surg History Medical History Acid reflux (Chronic) Hypertension (Chronic) Type I diabetes mellitus (Chronic) Gastroparesis due to DM (Chronic) CKD (chronic kidney disease) (Chronic) Depression (Chronic) Anemia (Chronic) Diabetic nephropathy (Chronic) CKD stage 3 due to type 1 diabetes mellitus (Chronic) Anxiety (Chronic) Surgical History History of appendectomy (Resolved) H/O shoulder surgery (Resolved) History of hip surgery (Resolved) Social History Communication Ability: Effective Wire Tinner Required: No Beliefs That Will Affect Care: None marital status: Legally Current Living Situation: Parent current occupational status: employed Other Information That Helps Us Care for You: No Feels Safe at Home: Yes Smoking Status: Never smoker Hx Alcohol Use: Yes Hx Substance Use: No Review of Systems See HPI for pertinent positives & negatives. and A total of 10 systems reviewed and were otherwise negative Physical Exam Vital Signs Vital Signs - 24 hr 09/10/18 18:41 09/10/18 20:14 09/10/18 20:37 Temperature 36.5 C Temperature Source Oral Sepsis Recent Fever Within 48 Hours No Sepsis Action Taken by Nursing No Action Required Pulse Rate 80 Pulse Rate [Apical] 82 Pulse Rhythm Regular Pulse Rhythm [Apical] Pulse Strength Normal Pulse Strength [Apical] Respiratory Rate 20 20 Respiratory Effort / Characteristics Non-Labored Respiratory Depth Normal Respiratory Pattern Regular Blood Pressure 152/80 H Blood Pressure [Left Arm] Blood Pressure [Right Arm] 180/95 H Blood Pressure Mean 104 Blood Pressure Mean [Left Arm] Blood Pressure Mean [Right Arm] 123 Blood Pressure Position Sitting Blood Pressure Position [Left Arm] Blood Pressure Position [Right Arm] Pulse Oximetry 98 97 98 Oxygen Delivery Method Room Air Room Air Room Air 09/10/18 23:00 09/11/18 00:52 09/11/18 01:06 Temperature 36.5 C Temperature Source Oral Sepsis Recent Fever Within 48 Hours Sepsis Action Taken by Nursing Pulse Rate 88 Pulse Rate [Apical] 86 88 Pulse Rhythm Pulse Rhythm [Apical] Pulse Strength Pulse Strength [Apical] Respiratory Rate 19 19 18 Respiratory Effort / Characteristics Non-Labored Spontaneous Respiratory Depth Normal Respiratory Pattern Regular Blood Pressure 178/89 H Blood Pressure [Left Arm] Blood Pressure [Right Arm] 178/95 H 161/85 H Blood Pressure Mean Blood Pressure Mean [Left Arm] Blood Pressure Mean [Right Arm] 122 110 Blood Pressure Position Blood Pressure Position [Left Arm] Blood Pressure Position [Right Arm] Pulse Oximetry 97 97 98 Oxygen Delivery Method Room Air Room Air 09/11/18 04:15 09/11/18 08:00 09/11/18 12:00 Temperature 36.7 C Temperature Source Oral Sepsis Recent Fever Within 48 Hours Sepsis Action Taken by Nursing Pulse Rate Pulse Rate [Apical] 87 86 Pulse Rhythm Pulse Rhythm [Apical] Regular Pulse Strength Pulse Strength [Apical] Normal Respiratory Rate 12 Respiratory Effort / Characteristics Non-Labored Spontaneous Respiratory Depth Normal Respiratory Pattern Regular Blood Pressure Blood Pressure [Left Arm] 192/90 H Blood Pressure [Right Arm] 161/74 H 168/84 H Blood Pressure Mean Blood Pressure Mean [Left Arm] 124 Blood Pressure Mean [Right Arm] 103 112 Blood Pressure Position Blood Pressure Position [Left Arm] Lying Blood Pressure Position [Right Arm] Lying Lying Pulse Oximetry 97 Oxygen Delivery Method Room Air 09/11/18 12:05 09/11/18 12:50 09/11/18 15:50 Temperature 36.9 C 36.9 C Temperature Source Oral Oral Sepsis Recent Fever Within 48 Hours Sepsis Action Taken by Nursing Pulse Rate Pulse Rate [Apical] 85 89 Pulse Rhythm Pulse Rhythm [Apical] Regular Regular Pulse Strength Pulse Strength [Apical] Normal Normal Respiratory Rate 12 12 Respiratory Effort / Characteristics Non-Labored Spontaneous Non-Labored Spontaneous Respiratory Depth Normal Normal Respiratory Pattern Regular Regular Blood Pressure Blood Pressure [Left Arm] 195/91 H 165/82 H 192/102 H Blood Pressure [Right Arm] Blood Pressure Mean Blood Pressure Mean [Left Arm] 125 109 132 Blood Pressure Mean [Right Arm] Blood Pressure Position Blood Pressure Position [Left Arm] Lying Lying Blood Pressure Position [Right Arm] Pulse Oximetry 94 91 Oxygen Delivery Method Room Air Room Air GENERAL: Patient is awake, alert, and somewhat listless appearing. Patient is resting comfortably and showing no signs of anxiety EYES: The conjunctivae are clear. The pupils are round and reactive. EARS, NOSE, MOUTH AND THROAT: The nose is without any evidence of any deformity. Mucous membranes are dry. Tongue is midline NECK: The neck is nontender and supple. RESPIRATORY: Normal respiratory effort is noted. There is no evidence of wheezing rhonchi or rales to auscultation. CARDIOVASCULAR: Tachycardic rate and regular rhythm noted. There no murmurs rubs or gallops normal S1 normal S2 GASTROINTESTINAL: The abdomen is soft. Bowel sounds are present in all quadrants. Abdomen is nontender. MUSCULOSKELETAL/EXTREMITIES: There is no evidence of gross deformity. Full range of motion is noted in the hips and shoulders. SKIN: There is no obvious evidence of any rash. There are no petechiae, pallor or cyanosis noted. NEUROLOGIC: Patient is awake alert and oriented x3. Patellar tendon reflexes are 1+ bilaterally. Course 1936: Past medical records reviewed. The patient was evaluated in room A11B, and a complete history and physical examination were performed. 2215: Upon reevaluation, the patient is resting. I discussed the findings and the treatment plan with the patient. He expresses agreement and understanding. [facility] The patient will be evaluated for further management. Consultations Consultation #1: [facility] The patient will be evaluated for further management. Time: 22:15 Administered Medications Hydralazine HCl (Hydralazine Hcl) 10 mg IV Q6H PRN PRN Reason: SBP >180 Stop: 10/11/18 01:11 Last Admin: 09/11/18 12:12 Dose: 10 mg Documented by: [id number] Prochlorperazine 5 mg/ Syringe 5 mls @ 5 mls/min IV Q6H JACKI Stop: 10/11/18 01:11 Last Admin: 09/11/18 09:20 Dose: 5 mls/min Documented by: [id number] Admin: 09/11/18 01:48 Dose: 5 mls/min Documented by: [id number] Acetaminophen (Ofirmev) 1,000 mg in 100 mls @ 400 mls/hr IV Q8H PRN PRN Reason: Pain Stop: 10/11/18 09:24 Last Infusion: 09/11/18 10:13 Dose: 0 mls/hr Documented by: [id number] Admin: 09/11/18 09:54 Dose: 400 mls/hr Documented by: [id number] Insulin Human Regular 250 (units/ Sodium Chloride) 250 mls @ 0.8 mls/hr IV .Q24H JACKI; Protocol Stop: 10/11/18 11:59 Last Titration: 09/11/18 15:12 Dose: 0.8 units/hr, 0.8 mls/hr Documented by: [id number] Cosigned by: [id number] Titration: 09/11/18 14:09 Dose: 1 units/hr, 1 mls/hr Documented by: [id number] Cosigned by: [id number] Titration: 09/11/18 13:15 Dose: 1.3 units/hr, 1.3 mls/hr Documented by: [id number] Cosigned by: [id number] Admin: 09/11/18 11:56 Dose: 1.6 units/hr, 1.6 mls/hr Documented by: [id number] Cosigned by: [id number] Potassium Chloride/Dextrose/Sod Cl (D5w And 1/2nss + 20meq Kcl) 20 meq in 1,000 mls @ 125 mls/hr IV .Q8H JACKI Stop: 10/11/18 11:59 Last Admin: 09/11/18 12:15 Dose: 125 mls/hr Documented by: [id number] Insulin Aspart (Novolog Flexpen) 0 units SC PCHS JACKI Stop: 10/11/18 12:59 Last Admin: 09/11/18 12:41 Dose: Not Given Documented by: [id number] Cosigned by: [id number] Ondansetron HCl (Zofran) 4 mg IV Q6H PRN PRN Reason: Nausea Stop: 10/11/18 01:11 Last Admin: 09/11/18 08:49 Dose: 4 mg Documented by: [id number] Admin: 09/11/18 04:38 Dose: 4 mg Documented by: [id number] Discontinued Medications Sodium Chloride (Nss 1000ml) 2,000 mls @ 999 mls/hr IV .Q2H1M JACKI Stop: 09/10/18 21:45 Last Infusion: 09/10/18 23:15 Dose: 0 mls/hr Documented by: [id number] Admin: 09/10/18 20:33 Dose: 999 mls/hr Documented by: [id number] Sodium Chloride (Nss 1000ml) 1,000 mls @ 125 mls/hr IV .Q8H JACKI Stop: 10/11/18 01:11 Last Infusion: 09/11/18 12:15 Dose: 0 mls/hr Documented by: [id number] Admin: 09/11/18 08:49 Dose: 125 mls/hr Documented by: [id number] Infusion: 09/11/18 08:49 Dose: 125 mls/hr Documented by: [id number] Infusion: 09/11/18 02:04 Dose: 125 mls/hr Documented by: [id number] Infusion: 09/11/18 01:27 Dose: 0 mls/hr Documented by: [id number] Admin: 09/11/18 01:23 Dose: 125 mls/hr Documented by: [id number] Insulin Human Regular 1.5 (units/ Syringe) 1.5 mls @ 0 mls/min IV TODAY@1200 ONE Stop: 09/11/18 12:01 Last Admin: 09/11/18 11:58 Dose: 1 mls/min Documented by: [id number] Cosigned by: [id number] Insulin Aspart (Novolog Flexpen) 0 units SC Q6 JACKI Stop: 10/11/18 05:59 Last Admin: 09/11/18 06:14 Dose: 5 units Documented by: [id number] Cosigned by: [id number] Insulin Aspart (Novolog Flexpen) 0 units SC NOW STA Stop: 09/11/18 01:46 Last Admin: 09/11/18 02:09 Dose: 3 units Documented by: [id number] Cosigned by: [id number] Insulin Glargine (Lantus Solostar Pen) 15 units SC NOW STA Stop: 09/11/18 06:36 Last Admin: 09/11/18 07:18 Dose: 15 units Documented by: [id number] Cosigned by: [id number] Miscellaneous (Insulin Protocol Dka Goal Range) 1 ea N/A ONE ONE Stop: 09/11/18 10:52 Last Admin: 09/11/18 12:00 Dose: 1 ea Documented by: [id number] Miscellaneous (Insulin Protocol Moderate Stress Level) 1 ea N/A ONE ONE Stop: 09/11/18 10:52 Last Admin: 09/11/18 12:00 Dose: 1 ea Documented by: [id number] Miscellaneous Information (Dc All Previously Ordered Diabetes Meds) 1 ea N/A ONE ONE Stop: 09/11/18 10:52 Last Admin: 09/11/18 12:00 Dose: 1 ea Documented by: [id number] Ondansetron HCl (Zofran) 4 mg IV NOW STA Stop: 09/10/18 19:37 Last Admin: 09/10/18 20:33 Dose: 4 mg Documented by: [id number] Medical Decision Making Differential Diagnosis Differential diagnosis: Etiologies such as gastroenteritis, food borne illness, infections, appendicitis, diverticulitis, inflammatory bowel disease, obstruction, GI bleed, biliary pathology, cardiac process, intracranial process, as well as others were entertained. Medical Records Attestation: I reviewed the patient's medical records. Home Medications Current Medication List: was personally reviewed by me Laboratory Data Attestation: I reviewed the patient's lab results. Result diagrams: 09/10/18 19:51 09/11/18 15:03 Lab Results 09/10/18 09/10/18 09/10/18 Range/Units 18:44 19:51 19:51 WBC 17.66 H (4.8-10.8) K/uL RBC 3.07 L (4.7-6.1) M/uL Hgb 9.2 L (14.0-18.0) g/dL Hct 28.1 L (42-52) % MCV 91.5 (80-100) fL MCH 30.0 (25-34) pg MCHC 32.7 (32-36) g/dL RDW Std Deviation 44.6 (36.4-46.3) fL RDW Coeff of Kami 13.4 (11.5-14.5) % Plt Count 457 H (130-400) K/uL MPV 8.9 (7.4-10.4) fL Immature Gran % (Auto) 0.5 % Neut % (Auto) 88.6 % Lymph % (Auto) 6.6 % Mccracken % (Auto) 3.9 % Eos % (Auto) 0.2 % Baso % (Auto) 0.2 % Immature Gran # (Auto) 0.08 H (0.00-0.02) K/uL Neut # (Auto) 15.64 H (1.4-6.5) K/uL Lymph # (Auto) 1.17 L (1.2-3.4) K/uL M[place]racken # (Auto) 0.69 H (0.11-0.59) K/uL Eos # (Auto) 0.04 (0-0.5) K/uL Baso # (Auto) 0.04 (0-0.2) K/uL PT 10.3 (9.0-12.0) Seconds INR 1.0 (0.9-1.1) APTT 22.2 (21.0-31.0) Seconds PTT Ratio 0.8 VBG pH (7.36-7.41) VBG pCO2 (38-50) mmHg VBG pO2 mmHg VBG HCO3 mmol/L VBG O2 Saturation % VBG Base Excess mEq/L Barometric Pressure mm/Hg Sodium (136-145) mmol/L Potassium (3.5-5.1) mmol/L Chloride (98-107) mmol/L Carbon Dioxide (21-32) mmol/L Anion Gap (3-11) BUN (7-18) mg/dl Creatinine (0.6-1.4) mg/dl Est Cr Clr Drug Dosing ml/min Est GFR ( Amer) Est GFR (Non-Af Amer) BUN/Creatinine Ratio (10-20) Glucose (70-99) mg/dl POC Glucose 199 H (70-99) Calcium (8.5-10.1) mg/dl Phosphorus (2.5-4.9) mg/dl Magnesium (1.8-2.4) mg/dl Total Bilirubin (0.2-1) mg/dl AST (15-37) U/L ALT (12-78) U/L Alkaline Phosphatase (45-117) U/L Troponin I (0-0.045) ng/ml Total Protein (6.4-8.2) gm/dl Albumin (3.4-5.0) gm/dl Globulin (2.5-4.0) gm/dl Albumin/Globulin Ratio (0.9-2) Lipase (73-393) U/L Beta-Hydroxybutyric Acd (0.2-2.81) mg/dl Urine Color Urine Appearance (Clear) Urine pH (4.5-7.5) Ur Specific [place] (1.000-1.030) Urine Protein (Negative) Urine Glucose (UA) (Negative) Urine Ketones (Negative) Urine Blood (Negative) Urine Nitrite (Negative) Urine Bilirubin (Negative) Urine Urobilinogen (Negative) Ur Leukocyte Esterase (Negative) Urine WBC (Auto) (0-5) /hpf Urine RBC (Auto) (0-4) /hpf U Hyaline Cast (Auto) (0-5) /lpf U Epithel Cells (Auto) (0-5) /lpf Urine Bacteria (Auto) (Negative) Nasal Screen MRSA (PCR) (Negative) 09/10/18 09/10/18 09/11/18 Range/Units 19:51 20:35 01:41 WBC (4.8-10.8) K/uL RBC (4.7-6.1) M/uL Hgb (14.0-18.0) g/dL Hct (42-52) % MCV (80-100) fL MCH (25-34) pg MCHC (32-36) g/dL RDW Std Deviation (36.4-46.3) fL RDW Coeff of Kami (11.5-14.5) % Plt Count (130-400) K/uL MPV (7.4-10.4) fL Immature Gran % (Auto) % Neut % (Auto) % Lymph % (Auto) % Mccracken % (Auto) % Eos % (Auto) % Baso % (Auto) % Immature Gran # (Auto) (0.00-0.02) K/uL Neut # (Auto) (1.4-6.5) K/uL Lymph # (Auto) (1.2-3.4) K/uL M[place]racken # (Auto) (0.11-0.59) K/uL Eos # (Auto) (0-0.5) K/uL Baso # (Auto) (0-0.2) K/uL PT (9.0-12.0) Seconds INR (0.9-1.1) APTT (21.0-31.0) Seconds PTT Ratio VBG pH 7.36 (7.36-7.41) VBG pCO2 30 L (38-50) mmHg VBG pO2 74 mmHg VBG HCO3 17 mmol/L VBG O2 Saturation 92.5 % VBG Base Excess -7.6 mEq/L Barometric Pressure 737.2 mm/Hg Sodium 137 (136-145) mmol/L Potassium 4.5 (3.5-5.1) mmol/L Chloride 106 (98-107) mmol/L Carbon Dioxide 18 L (21-32) mmol/L Anion Gap 14.0 H (3-11) BUN 81 H (7-18) mg/dl Creatinine 4.74 H* (0.6-1.4) mg/dl Est Cr Clr Drug Dosing 17.8 ml/min Est GFR ( Amer) 15.7 Est GFR (Non-Af Amer) 13.5 BUN/Creatinine Ratio 17.2 (10-20) Glucose 236 H (70-99) mg/dl POC Glucose 235 H (70-99) Calcium 9.3 (8.5-10.1) mg/dl Phosphorus (2.5-4.9) mg/dl Magnesium (1.8-2.4) mg/dl Total Bilirubin 0.4 (0.2-1) mg/dl AST 12 L (15-37) U/L ALT 28 (12-78) U/L Alkaline Phosphatase 104 (45-117) U/L Troponin I < 0.015 (0-0.045) ng/ml Total Protein 7.0 (6.4-8.2) gm/dl Albumin 3.0 L (3.4-5.0) gm/dl Globulin 4.0 (2.5-4.0) gm/dl Albumin/Globulin Ratio 0.8 L (0.9-2) Lipase 62 L (73-393) U/L Beta-Hydroxybutyric Acd 43.60 H (0.2-2.81) mg/dl Urine Color Urine Appearance (Clear) Urine pH (4.5-7.5) Ur Specific [place] (1.000-1.030) Urine Protein (Negative) Urine Glucose (UA) (Negative) Urine Ketones (Negative) Urine Blood (Negative) Urine Nitrite (Negative) Urine Bilirubin (Negative) Urine Urobilinogen (Negative) Ur Leukocyte Esterase (Negative) Urine WBC (Auto) (0-5) /hpf Urine RBC (Auto) (0-4) /hpf U Hyaline Cast (Auto) (0-5) /lpf U Epithel Cells (Auto) (0-5) /lpf Urine Bacteria (Auto) (Negative) Nasal Screen MRSA (PCR) (Negative) 09/11/18 09/11/18 09/11/18 Range/Units 02:38 04:17 06:12 WBC (4.8-10.8) K/uL RBC (4.7-6.1) M/uL Hgb (14.0-18.0) g/dL Hct (42-52) % MCV (80-100) fL MCH (25-34) pg MCHC (32-36) g/dL RDW Std Deviation (36.4-46.3) fL RDW Coeff of Kami (11.5-14.5) % Plt Count (130-400) K/uL MPV (7.4-10.4) fL Immature Gran % (Auto) % Neut % (Auto) % Lymph % (Auto) % M[place]racken % (Auto) % Eos % (Auto) % Baso % (Auto) % Immature Gran # (Auto) (0.00-0.02) K/uL Neut # (Auto) (1.4-6.5) K/uL Lymph # (Auto) (1.2-3.4) K/uL M[place]rack[place] # (Auto) (0.11-0.59) K/uL Eos # (Auto) (0-0.5) K/uL Baso # (Auto) (0-0.2) K/uL PT (9.0-12.0) Seconds INR (0.9-1.1) APTT (21.0-31.0) Seconds PTT Ratio VBG pH (7.36-7.41) VBG pCO2 (38-50) mmHg VBG pO2 mmHg VBG HCO3 mmol/L VBG O2 Saturation % VBG Base Excess mEq/L Barometric Pressure mm/Hg Sodium (136-145) mmol/L Potassium (3.5-5.1) mmol/L Chloride (98-107) mmol/L Carbon Dioxide (21-32) mmol/L Anion Gap (3-11) BUN (7-18) mg/dl Creatinine (0.6-1.4) mg/dl Est Cr Clr Drug Dosing ml/min Est GFR ( Amer) Est GFR (Non-Af Amer) BUN/Creatinine Ratio (10-20) Glucose (70-99) mg/dl POC Glucose 256 H 285 H (70-99) Calcium (8.5-10.1) mg/dl Phosphorus (2.5-4.9) mg/dl Magnesium (1.8-2.4) mg/dl Total Bilirubin (0.2-1) mg/dl AST (15-37) U/L ALT (12-78) U/L Alkaline Phosphatase (45-117) U/L Troponin I (0-0.045) ng/ml Total Protein (6.4-8.2) gm/dl Albumin (3.4-5.0) gm/dl Globulin (2.5-4.0) gm/dl Albumin/Globulin Ratio (0.9-2) Lipase (73-393) U/L Beta-Hydroxybutyric Acd (0.2-2.81) mg/dl Urine Color Yellow Urine Appearance Clear (Clear) Urine pH 5.0 (4.5-7.5) Ur Specific [place] 1.020 (1.000-1.030) Urine Protein 4+ H (Negative) Urine Glucose (UA) 2+ H (Negative) Urine Ketones Trace H (Negative) Urine Blood Negative (Negative) Urine Nitrite Negative (Negative) Urine Bilirubin Negative (Negative) Urine Urobilinogen Negative (Negative) Ur Leukocyte Esterase Negative (Negative) Urine WBC (Auto) 1-5 (0-5) /hpf Urine RBC (Auto) 0-4 (0-4) /hpf U Hyaline Cast (Auto) 1-5 (0-5) /lpf U Epithel Cells (Auto) 10-20 H (0-5) /lpf Urine Bacteria (Auto) Negative (Negative) Nasal Screen MRSA (PCR) (Negative) 09/11/18 09/11/18 09/11/18 Range/Units 06:27 09:02 11:13 WBC (4.8-10.8) K/uL RBC (4.7-6.1) M/uL Hgb (14.0-18.0) g/dL Hct (42-52) % MCV (80-100) fL MCH (25-34) pg MCHC (32-36) g/dL RDW Std Deviation (36.4-46.3) fL RDW Coeff of Kami (11.5-14.5) % Plt Count (130-400) K/uL MPV (7.4-10.4) fL Immature Gran % (Auto) % Neut % (Auto) % Lymph % (Auto) % [place]rack[place] % (Auto) % Eos % (Auto) % Baso % (Auto) % Immature Gran # (Auto) (0.00-0.02) K/uL Neut # (Auto) (1.4-6.5) K/uL Lymph # (Auto) (1.2-3.4) K/uL [place] # (Auto) (0.11-0.59) K/uL Eos # (Auto) (0-0.5) K/uL Baso # (Auto) (0-0.2) K/uL PT (9.0-12.0) Seconds INR (0.9-1.1) APTT (21.0-31.0) Seconds PTT Ratio VBG pH (7.36-7.41) VBG pCO2 (38-50) mmHg VBG pO2 mmHg VBG HCO3 mmol/L VBG O2 Saturation % VBG Base Excess mEq/L Barometric Pressure mm/Hg Sodium 142 142 (136-145) mmol/L Potassium 4.4 4.3 (3.5-5.1) mmol/L Chloride 113 H 112 H (98-107) mmol/L Carbon Dioxide 18 L 19 L (21-32) mmol/L Anion Gap 11.0 11.0 (3-11) BUN 77 H 77 H (7-18) mg/dl Creatinine 4.38 H D 4.53 H* (0.6-1.4) mg/dl Est Cr Clr Drug Dosing 18.9 18.3 ml/min Est GFR ( Amer) 17.2 16.5 Est GFR (Non-Af Amer) 14.9 14.3 BUN/Creatinine Ratio 16.9 16.9 (10-20) Glucose 218 H 174 H (70-99) mg/dl POC Glucose (70-99) Calcium 8.5 7.9 L (8.5-10.1) mg/dl Phosphorus 5.3 H (2.5-4.9) mg/dl Magnesium 2.3 (1.8-2.4) mg/dl Total Bilirubin (0.2-1) mg/dl AST (15-37) U/L ALT (12-78) U/L Alkaline Phosphatase (45-117) U/L Troponin I (0-0.045) ng/ml Total Protein (6.4-8.2) gm/dl Albumin (3.4-5.0) gm/dl Globulin (2.5-4.0) gm/dl Albumin/Globulin Ratio (0.9-2) Lipase (73-393) U/L Beta-Hydroxybutyric Acd (0.2-2.81) mg/dl Urine Color Urine Appearance (Clear) Urine pH (4.5-7.5) Ur Specific [place] (1.000-1.030) Urine Protein (Negative) Urine Glucose (UA) (Negative) Urine Ketones (Negative) Urine Blood (Negative) Urine Nitrite (Negative) Urine Bilirubin (Negative) Urine Urobilinogen (Negative) Ur Leukocyte Esterase (Negative) Urine WBC (Auto) (0-5) /hpf Urine RBC (Auto) (0-4) /hpf U Hyaline Cast (Auto) (0-5) /lpf U Epithel Cells (Auto) (0-5) /lpf Urine Bacteria (Auto) (Negative) Nasal Screen MRSA (PCR) Negative (Negative) 09/11/18 09/11/18 09/11/18 Range/Units 11:13 11:26 13:00 WBC (4.8-10.8) K/uL RBC (4.7-6.1) M/uL Hgb (14.0-18.0) g/dL Hct (42-52) % MCV (80-100) fL MCH (25-34) pg MCHC (32-36) g/dL RDW Std Deviation (36.4-46.3) fL RDW Coeff of Kami (11.5-14.5) % Plt Count (130-400) K/uL MPV (7.4-10.4) fL Immature Gran % (Auto) % Neut % (Auto) % Lymph % (Auto) % [place] % (Auto) % Eos % (Auto) % Baso % (Auto) % Immature Gran # (Auto) (0.00-0.02) K/uL Neut # (Auto) (1.4-6.5) K/uL Lymph # (Auto) (1.2-3.4) K/uL [place] # (Auto) (0.11-0.59) K/uL Eos # (Auto) (0-0.5) K/uL Baso # (Auto) (0-0.2) K/uL PT (9.0-12.0) Seconds INR (0.9-1.1) APTT (21.0-31.0) Seconds PTT Ratio VBG pH 7.35 L (7.36-7.41) VBG pCO2 (38-50) mmHg VBG pO2 mmHg VBG HCO3 mmol/L VBG O2 Saturation % VBG Base Excess mEq/L Barometric Pressure mm/Hg Sodium (136-145) mmol/L Potassium (3.5-5.1) mmol/L Chloride (98-107) mmol/L Carbon Dioxide (21-32) mmol/L Anion Gap (3-11) BUN (7-18) mg/dl Creatinine (0.6-1.4) mg/dl Est Cr Clr Drug Dosing ml/min Est GFR ( Amer) Est GFR (Non-Af Amer) BUN/Creatinine Ratio (10-20) Glucose (70-99) mg/dl POC Glucose 175 H 146 H (70-99) Calcium (8.5-10.1) mg/dl Phosphorus (2.5-4.9) mg/dl Magnesium (1.8-2.4) mg/dl Total Bilirubin (0.2-1) mg/dl AST (15-37) U/L ALT (12-78) U/L Alkaline Phosphatase (45-117) U/L Troponin I (0-0.045) ng/ml Total Protein (6.4-8.2) gm/dl Albumin (3.4-5.0) gm/dl Globulin (2.5-4.0) gm/dl Albumin/Globulin Ratio (0.9-2) Lipase (73-393) U/L Beta-Hydroxybutyric Acd (0.2-2.81) mg/dl Urine Color Urine Appearance (Clear) Urine pH (4.5-7.5) Ur Specific [place] (1.000-1.030) Urine Protein (Negative) Urine Glucose (UA) (Negative) Urine Ketones (Negative) Urine Blood (Negative) Urine Nitrite (Negative) Urine Bilirubin (Negative) Urine Urobilinogen (Negative) Ur Leukocyte Esterase (Negative) Urine WBC (Auto) (0-5) /hpf Urine RBC (Auto) (0-4) /hpf U Hyaline Cast (Auto) (0-5) /lpf U Epithel Cells (Auto) (0-5) /lpf Urine Bacteria (Auto) (Negative) Nasal Screen MRSA (PCR) (Negative) 09/11/18 09/11/18 09/11/18 Range/Units 14:00 15:03 15:03 WBC (4.8-10.8) K/uL RBC (4.7-6.1) M/uL Hgb (14.0-18.0) g/dL Hct (42-52) % MCV (80-100) fL MCH (25-34) pg MCHC (32-36) g/dL RDW Std Deviation (36.4-46.3) fL RDW Coeff of Kami (11.5-14.5) % Plt Count (130-400) K/uL MPV (7.4-10.4) fL Immature Gran % (Auto) % Neut % (Auto) % Lymph % (Auto) % [place]rack[place] % (Auto) % Eos % (Auto) % Baso % (Auto) % Immature Gran # (Auto) (0.00-0.02) K/uL Neut # (Auto) (1.4-6.5) K/uL Lymph # (Auto) (1.2-3.4) K/uL [place]rack[place] # (Auto) (0.11-0.59) K/uL Eos # (Auto) (0-0.5) K/uL Baso # (Auto) (0-0.2) K/uL PT (9.0-12.0) Seconds INR (0.9-1.1) APTT (21.0-31.0) Seconds PTT Ratio VBG pH 7.40 (7.36-7.41) VBG pCO2 (38-50) mmHg VBG pO2 mmHg VBG HCO3 mmol/L VBG O2 Saturation % VBG Base Excess mEq/L Barometric Pressure mm/Hg Sodium 141 (136-145) mmol/L Potassium (3.5-5.1) mmol/L Chloride 113 H (98-107) mmol/L Carbon Dioxide 21 (21-32) mmol/L Anion Gap 7.0 (3-11) BUN 73 H (7-18) mg/dl Creatinine 4.49 H (0.6-1.4) mg/dl Est Cr Clr Drug Dosing 18.5 ml/min Est GFR ( Amer) 16.7 Est GFR (Non-Af Amer) 14.4 BUN/Creatinine Ratio 16.2 (10-20) Glucose 122 H (70-99) mg/dl POC Glucose 134 H (70-99) Calcium 7.7 L (8.5-10.1) mg/dl Phosphorus 5.2 H (2.5-4.9) mg/dl Magnesium (1.8-2.4) mg/dl Total Bilirubin (0.2-1) mg/dl AST (15-37) U/L ALT (12-78) U/L Alkaline Phosphatase (45-117) U/L Troponin I (0-0.045) ng/ml Total Protein (6.4-8.2) gm/dl Albumin (3.4-5.0) gm/dl Globulin (2.5-4.0) gm/dl Albumin/Globulin Ratio (0.9-2) Lipase (73-393) U/L Beta-Hydroxybutyric Acd (0.2-2.81) mg/dl Urine Color Urine Appearance (Clear) Urine pH (4.5-7.5) Ur Specific [place] (1.000-1.030) Urine Protein (Negative) Urine Glucose (UA) (Negative) Urine Ketones (Negative) Urine Blood (Negative) Urine Nitrite (Negative) Urine Bilirubin (Negative) Urine Urobilinogen (Negative) Ur Leukocyte Esterase (Negative) Urine WBC (Auto) (0-5) /hpf Urine RBC (Auto) (0-4) /hpf U Hyaline Cast (Auto) (0-5) /lpf U Epithel Cells (Auto) (0-5) /lpf Urine Bacteria (Auto) (Negative) Nasal Screen MRSA (PCR) (Negative) 09/11/18 Range/Units 15:04 WBC (4.8-10.8) K/uL RBC (4.7-6.1) M/uL Hgb (14.0-18.0) g/dL Hct (42-52) % MCV (80-100) fL MCH (25-34) pg MCHC (32-36) g/dL RDW Std Deviation (36.4-46.3) fL RDW Coeff of Kami (11.5-14.5) % Plt Count (130-400) K/uL MPV (7.4-10.4) fL Immature Gran % (Auto) % Neut % (Auto) % Lymph % (Auto) % M[place]racken % (Auto) % Eos % (Auto) % Baso % (Auto) % Immature Gran # (Auto) (0.00-0.02) K/uL Neut # (Auto) (1.4-6.5) K/uL Lymph # (Auto) (1.2-3.4) K/uL M[place]racken # (Auto) (0.11-0.59) K/uL Eos # (Auto) (0-0.5) K/uL Baso # (Auto) (0-0.2) K/uL PT (9.0-12.0) Seconds INR (0.9-1.1) APTT (21.0-31.0) Seconds PTT Ratio VBG pH (7.36-7.41) VBG pCO2 (38-50) mmHg VBG pO2 mmHg VBG HCO3 mmol/L VBG O2 Saturation % VBG Base Excess mEq/L Barometric Pressure mm/Hg Sodium (136-145) mmol/L Potassium (3.5-5.1) mmol/L Chloride (98-107) mmol/L Carbon Dioxide (21-32) mmol/L Anion Gap (3-11) BUN (7-18) mg/dl Creatinine (0.6-1.4) mg/dl Est Cr Clr Drug Dosing ml/min Est GFR ( Amer) Est GFR (Non-Af Amer) BUN/Creatinine Ratio (10-20) Glucose (70-99) mg/dl POC Glucose 129 H (70-99) Calcium (8.5-10.1) mg/dl Phosphorus (2.5-4.9) mg/dl Magnesium (1.8-2.4) mg/dl Total Bilirubin (0.2-1) mg/dl AST (15-37) U/L ALT (12-78) U/L Alkaline Phosphatase (45-117) U/L Troponin I (0-0.045) ng/ml Total Protein (6.4-8.2) gm/dl Albumin (3.4-5.0) gm/dl Globulin (2.5-4.0) gm/dl Albumin/Globulin Ratio (0.9-2) Lipase (73-393) U/L Beta-Hydroxybutyric Acd (0.2-2.81) mg/dl Urine Color Urine Appearance (Clear) Urine pH (4.5-7.5) Ur Specific [place] (1.000-1.030) Urine Protein (Negative) Urine Glucose (UA) (Negative) Urine Ketones (Negative) Urine Blood (Negative) Urine Nitrite (Negative) Urine Bilirubin (Negative) Urine Urobilinogen (Negative) Ur Leukocyte Esterase (Negative) Urine WBC (Auto) (0-5) /hpf Urine RBC (Auto) (0-4) /hpf U Hyaline Cast (Auto) (0-5) /lpf U Epithel Cells (Auto) (0-5) /lpf Urine Bacteria (Auto) (Negative) Nasal Screen MRSA (PCR) (Negative) Imaging Data Radiologist's Impression: Radiology results as stated below per my review and the radiologist's interpretation: XR abdomen 2V w PA chest CLINICAL HISTORY: 48 years-old Male presenting with vomiting. TECHNIQUE: PA view of the chest and supine and upright views of the abdomen were obtained. COMPARISON: Chest x-ray from 09/09/2018 and plain radiograph from 06/02/2018. FINDINGS: Cardiac silhouette top normal in size. Lungs and pleural spaces clear. Punctate hyperdensities in the region of the ascending colon likely related to medication menstruation. Mild stool burden noted throughout the colon. Nonobstructive bowel gas pattern. No gross pneumoperitoneum. Calcification projects over the lower pole of the right kidney correlating to the known right renal calculus. Osseous structures normal. IMPRESSION: 1. No acute cardiopulmonary disease. 2. Right nephrolithiasis. 3. Mild stool burden. No other evidence of acute intra-abdominal pathology. Electronically signed by: Jose Zaldivar M.D. 09/10/2018 9:21 PM ECG Data Attestation: I personally reviewed and interpreted this ECG as follows: Indication: vomiting Rate (beats per minute): 77 Rhythm: normal sinus Findings: no ST depression, no ST elevation and no ectopy Comparison ECG Date: from (09/09/18) Change: no significant change Blood Pressure Blood Pressure Findings: Elevated blood pressure Blood Pressure Disposition: further management by hospitalist DAVID Narrative The patient is a 48-year-old male who presented to the emergency department for an evaluation of nausea vomiting and dehydration. The patient is a history of diabetes as well as renal insufficiency. He was found to have an elevated white blood cell count as well as signs of metabolic acidosis. The patient was treated with IV fluids and IV antiemetics. On subsequent reevaluation he was not feeling much better. The patient was seen in our facility yesterday for similar complaints. I was concerned that this may represent an intractable vomiting situation and given his diabetes I felt he had significant potential to worsen. For this reason I discussed his case with the on-call [facility] hospitalist. The patient is to be evaluated in the emergency department for further management and disposition. Impression & Plan Gastroparesis, Intractable vomiting, Metabolic acidosis, Elevated white blood cell count Discharge Plan Visit Data *Final* Discharge Date/Time: 09/11/18 00:52 Chief Complaint: Vomiting Stated Complaint: vomiting ED Provider: Jorge Alberto Mae Discharge Problem: Gastroparesis, Intractable vomiting, Metabolic acidosis, Elevated white blood cell count Patient Disposition: Admitted As Inpatient Discharge Instructions Interventions: ED Discharge Assessment Last Done: 09/11/18 00:52 Discharge Problem: Intractable vomiting Qualifiers: Vomiting type: unspecified Nausea presence: unspecified Qualified Code(s): R11.10 - Vomiting, unspecified Elevated white blood cell count Qualifiers: Leukocytosis type: unspecified Qualified Code(s): D72.829 - Elevated white blood cell count, unspecified The scribe's documentation has been prepared under my direction and personally reviewed by me in its entirety. I confirm that the note above accurately reflects all work, treatment, procedures, and medical decision making performed by me.
--- NOTE | 2018-09-11 00:17 | History & Physical Report ---
Date of Service September 11, 2018 Assessment & Plan (1) Intractable vomiting: - Secondary to Diabetic Gastroparesis --> Does not appear that his renal function is the major contributer as his creatinine has been significantly elevated for quite a long period of time with improvement over the last month - Abdominal XR: Mild stool burden. No other evidence of acute intra-abdominal pathology. - IV Zofran 4mg q6h - IV Compazine 5mg IV q6h - Holding home PO Reglan and Zofran - NPO - IV NS @ 125 mls/hr (2) Type I diabetes mellitus: - Insulin Pump on admission - SSI with BSG AC/HS - Last Hemoglobin A1c 8.4% (05/2018) (3) Hypertension: - Holding home PO antihypertensives - IV Hydralazine 10mg PRN (4) CKD (chronic kidney disease): - Baseline Cr of 2-2.5 --> Current Cr (4.74( is improved from discharge roughly 1 month ago (5.46 at that time) - Recent worsening of diabetic nephropathy when evaluated and discharged 08/13 (had significant diuresis with Lasix during that admission) - At that time had a renal US wnl and was evaluated by nephrology who had discussed HD if his nephropathy continued to worsen (5) Anemia: - Hgb of 9.2 - Most likely anemia of chronic diseases secondary to his CKD - At baseline hemoglobin (6) DVT prophylaxis: SCDs History of Present Illness Primary Care Provider: Yoshi Reyes DO Patient is a 48 year old male with a past medical history of Type 1 diabetes with recurrent episodes of gastroparesis, hypertension, and CKD that presents with nausea and dry heaves. The patient began having these symptoms yesterday with persistent nausea and was evaluated in the ER. He was treated with a dose of IV Zofran and had an improvement of symptoms. Once home he began to have a recurrence of these symptoms that have persisted throughout today. He has also had a difficult time controlling his blood sugars with persistent readings in the 300s. He denies any other symptoms including diarrhea, fevers, chills, abdominal pain, chest pain, shortness of breath, or any other acute complaints. Allergies Allergy/AdvReac Type Severity Reaction Status Date / Time shellfish derived Allergy Severe anaphylaxis Verified 09/10/18 20:39 codeine Allergy Intermediate Hives Verified 09/11/18 16:32 promethazine Allergy Intermediate itchy/hives Verified 09/10/18 20:39 Home Medications Home Medications Medication Instructions Recorded Confirmed Type metoclopramide HCl [Reglan] 10 mg PO QID PRN #6 tab 11/26/17 09/10/18 History metoprolol tartrate 25 mg PO BID #60 tab 08/13/18 09/10/18 Rx sertraline 50 mg PO QAM #30 tab 08/13/18 09/10/18 Rx ondansetron 4 mg PO Q8H PRN #10 tab 09/09/18 09/10/18 Rx amlodipine 10 mg PO QAM 09/10/18 09/10/18 History atorvastatin 10 mg PO DAILY 09/10/18 09/10/18 History cholecalciferol (vitamin D3) 2,000 units PO QAM 09/10/18 09/10/18 History [Vitamin D3] furosemide 20 mg PO BID PRN 09/10/18 09/10/18 History hydralazine 25 mg PO TID 09/10/18 09/10/18 History insulin lispro [Humalog U-100 1 sliding scale dose SUBCUT 09/10/18 09/10/18 History Insulin] CONTINOUS Past Med/Surg History Medical History Acid reflux (Chronic) Hypertension (Chronic) Type I diabetes mellitus (Chronic) Gastroparesis due to DM (Chronic) CKD (chronic kidney disease) (Chronic) Depression (Chronic) Anemia (Chronic) Diabetic nephropathy (Chronic) CKD stage 3 due to type 1 diabetes mellitus (Chronic) Anxiety (Chronic) Surgical History History of appendectomy (Resolved) H/O shoulder surgery (Resolved) History of hip surgery (Resolved) Social History Communication Ability: Effective Special Police Officer Required: No Beliefs That Will Affect Care: None marital status: Legally Current Living Situation: Parent current occupational status: employed Other Information That Helps Us Care for You: No Feels Safe at Home: Yes Smoking Status: Never smoker Hx Alcohol Use: Yes Hx Substance Use: No Review of Systems See HPI for pertinent positives and negatives. A total of ten systems were reviewed and were otherwise negative. Physical Exam Vital Signs (Past 24 Hours): Last Vital Signs Temp 36.5 C 09/10/18 18:41 Pulse 86 09/10/18 23:00 Resp 19 09/10/18 23:00 BP 178/95 H 09/10/18 23:00 Pulse Ox 97 09/10/18 23:00 GENERAL: Awake, al ert, dry heaving H ENT: Normocephalic , atraumatic. Orop harynx unremarkabl e. EYES: Normal co njunctiva. Sclera non-icteric. NECK: Supple. RESPIRAT ORY: Clear to ausc ultation. CARDIAC: Regular rate, nor mal rhythm. ABDOM EN: Soft, non-dist ended. No tenderne ss to palpation. N o rebound or guard ing. RECTAL: Defe rred. MUSCULOSKELE RADHA: Chest examina tion reveals no te nderness. The back is symmetrical on inspection withou t obvious abnormal ity. There is no C VA tenderness to p alpation. Mild ten derness over L4 ve rtebrae secondary to fall last week. LOWER EXTREMITIES : Calves are equal size bilaterally and non-tender. No edema. No discolo ration. NEURO: No rmal sensorium. S KIN: No rash or ja undice noted. Supervising Physician Co-Signing Physician Notes Attending addendum: I have physically seen this patient, have supervised the medical residents activities, and agree with the H&P unless as otherwise noted. Assessment and Plan: Intractable vomiting/history of severe diabetic gastroparesis-- Placed in nonmonitored bed. Zofran 4 mg IV every 6 hours as needed. Compazine 10 mg IV every 6 hours as needed. NPO. NSS and 125 mL's per hour. Patient is scheduled to have follow-up visit with gastroparesis specialist at [place] next week. There appears to be an anxiety/depression component. It would certainly be reasonable that dealing with his gastroparesis has him depressed, but also appears that just having a conversation about his problem promotes vomiting episodes as happened during my conversation with him tonight. Remainder of orders and notations as noted. Resident Activity Tracking Resident Involvement: Resident Care Provided Care Provided: Adult Hospital Medicine (1) Anemia Anemia type: unspecified type Qualified Code(s): D64.9 - Anemia, unspecified (2) Intractable vomiting Nausea presence: unspecified Vomiting type: unspecified Qualified Code(s): R11.10 - Vomiting, unspecified
[2018-09-11] MEDS ORDERED: GLUCAGON FOR INJ 1 MG VIAL SQ PRN (01:12)
[2018-09-11] MEDS ORDERED: CARBOHYDRATES FOR HYPOGLYCEMIA PO PRN (01:12)
[2018-09-11] MEDS ORDERED: DEXTROSE 50% 50 ML SYRINGE IV PRN (01:12)
[2018-09-11] MEDS ORDERED: GLUCOSE 40% GEL 15 GM TUBE PO PRN (01:12)
[2018-09-11] MEDS ORDERED: GLUCOSE 10 TABS/TUBE PO PRN (01:12)
[2018-09-11] MEDS: SODIUM CHLORIDE 0.9% 1000ML 1,000 ML IV SCH ×2 (01:23→08:49)
[2018-09-11] MEDS ORDERED: INSULIN ASPART 100 UNITS/ML 3 ML PEN SC STA (01:45)
[2018-09-11] MEDS: PROCHLORPERAZINE 5 MG in SYRINGE 4 ML IV SCH ×4 (01:48→21:14)
[2018-09-11 02:48] LABS: Appearance Urine Clear (Clear); Bacteria Urine Automated Negative (Negative); Bilirubin Urine Negative (Negative); Blood Urine Negative (Negative); Color Urine Yellow; Glucose Urine UA 2+ (Negative); Ketones Urine Trace (Negative); Leukocyte Esterase Urine Negative (Negative); Nitrite Urine Negative (Negative); Protein Urine 4+ (Negative); RBC Urine Automated 0-4 /hpf (0-4); Urobilinogen Urine Negative (Negative)
[2018-09-11] MEDS: ONDANSETRON INJ 2 MG/ML 2 ML VIAL IV PRN ×2 (04:38→08:49)
[2018-09-11] MEDS ORDERED: INSULIN ASPART 100 UNITS/ML 3 ML PEN SC SCH ×2 (06:00→13:00)
[2018-09-11] MEDS ORDERED: INSULIN GLARGINE SOLOSTAR 100 UNITS/ML 3 ML PEN SC STA (06:35)
--- NOTE | 2018-09-11 08:53 | Hospitalist Progress Note ---
Date of Service September 11, 2018 Assessment & Plan (1) Intractable vomiting: - Secondary to Diabetic Gastroparesis --> Does not appear that his renal function is the major contributer as his creatinine has been significantly elevated for quite a long period of time with improvement over the last month - Abdominal XR: Mild stool burden. No other evidence of acute intra-abdominal pathology. LFT changes - IV Zofran 4mg q6h - IV Compazine 5mg IV q6h - Holding home PO Reglan and Zofran - IV NS @ 125 mls/hr Treating reverse acidosis (2) Type I diabetes mellitus: - Insulin Pump on admission will transition insulin drip today - Last Hemoglobin A1c 8.4% (05/2018) (3) Hypertension: - Holding home PO antihypertensives, typically takes amlodipine and metoprolol - IV Hydralazine 10mg PRN (4) CKD (chronic kidney disease): - Baseline Cr of 2-2.5 --> Current Cr (4.74( is improved from discharge roughly 1 month ago (5.46 at that time) - Recent worsening of diabetic nephropathy when evaluated and discharged 08/13 (had significant diuresis with Lasix during that admission) - At that time had a renal US wnl and was evaluated by nephrology who had discussed HD if his nephropathy continued to worsen (5) Anemia: - Hgb of 9.2 - Most likely anemia of chronic diseases secondary to his CKD (6) DVT prophylaxis: SCDs Subjective Patient is lethargic mildly nauseated with back pain which is been relieved with Tylenol. He did have improvement of his anion gap is bicarbonate stools in the teen range. Glucoses are however in the 200s. Did receive a dose of Lantus this a.m. however after discussion with glycemic pharmacy and the patient will pursue a short run of an insulin drip to try to reverse his acidosis of his glucose control and then return him to the basal rate of his insulin pump Patient states that he generally feels horrible however his back pain is improved. He has persistent problems with nausea due to the significant gastroparesis. He denies any on any known reason why he may have had some issues with good glucose management currently Review of Systems ROS: Patient is appears chronically ill lethargic No double vision blurry vision No problems with speech or swallowing No palpitations, chest pain or pressure No Wheezing or breathing issues Generalized diffuse abdominal pain mild nausea and occasional vomiting without diarrhea No burning urine does have some urine frequency No focal joint pain or muscle pain No skin rashes or oral lesions No unusual bruising or bleeding No focused back pain or numbness or loss of strength No changes in memory or confusion Physical Exam Vital Signs (Past 24 Hours): Last Vital Signs Temp 36.7 C 09/11/18 08:00 Pulse 86 09/11/18 08:00 Resp 12 09/11/18 08:00 BP 168/84 H 09/11/18 08:00 Pulse Ox 97 09/11/18 08:00 The patient appeared well nourished and in mild distress Vital signs as documented. Head exam is unremarkable. normocephalic, atraumatic Neck is without jugular venous distension, thyromegaly, or lymphademopathy Lungs are clear to auscultation and percussion. Cardiac exam reveals Rhythm is regular. First and second heart sounds normal. Abdominal exam reveals hypoactive bowel sounds, soft mildly tender no masses, no organomegaly Extremities are nonedematous and both pedal pulses are present Neurologic exam is A&Ox3, no focal deficits, strength is equal bilateral Psychologically seems depressed Skin is warm Dry without bruises or lesions (1) Anemia Anemia type: unspecified type Qualified Code(s): D64.9 - Anemia, unspecified (2) Intractable vomiting Nausea presence: unspecified Vomiting type: unspecified Qualified Code(s): R11.10 - Vomiting, unspecified
[2018-09-11] MEDS ORDERED: ACETAMINOPHEN 1,000 MG/100 ML VIAL IV PRN (09:25)
[2018-09-11 09:50] LABS: BUN Creatinine Ratio 16.9 (10-20); Calcium 8.5 mg/dl (8.5-10.1); Creatinine Clr Calc Pharmacy 18.9 ml/min; Est GFR (African American) 17.2; Est GFR (Non-African American) 14.9; Potassium 4.4 mmol/L (3.5-5.1)
[2018-09-11] MEDS ORDERED: DKA GOAL RANGE 150-250 mg/dl ONE (10:51)
[2018-09-11] MEDS ORDERED: DC ALL PREVIOUSLY ORDERED DIABETES MEDS ONE (10:51)
[2018-09-11] MEDS ORDERED: MODERATE STRESS LEVEL ONE (10:51)
[2018-09-11] MEDS ORDERED: PENDING D5 1/2NS+20mEq KCL IVF SCH (11:00)
[2018-09-11] MEDS ORDERED: PENDING NSS+20mEq KCL IVF SCH (11:00)
[2018-09-11] MEDS ORDERED: PHARMACY GLYCEMIC MGMT CONSULT PRN (11:08)
[2018-09-11 11:57] LABS: BUN Creatinine Ratio 16.9 (10-20); Calcium 7.9 mg/dl (8.5-10.1); Creatinine Clr Calc Pharmacy 18.3 ml/min; Est GFR (African American) 16.5; Est GFR (Non-African American) 14.3; Magnesium 2.3 mg/dl (1.8-2.4); Phosphorus 5.3 mg/dl (2.5-4.9); Potassium 4.3 mmol/L (3.5-5.1)
[2018-09-11] MEDS ORDERED: INSULIN HUMAN REGULAR IV BOLUS 1.5 UNITS in SYRINGE 0 ML IV ONE (12:00)
[2018-09-11] MEDS ORDERED: INSULIN REGULAR 250 UNITS in SODIUM CHLORIDE 0.9% 247.5 ML IV SCH (12:00)
[2018-09-11] MEDS: HydrALAZINE HCL 20 MG/ML VIAL IV PRN ×2 (12:12→22:29)
[2018-09-11] MEDS: D5W AND 1/2NSS + 20MEQ KCL 20 MEQ/1,000 ML BAG IV SCH ×2 (12:15→20:13)
--- NOTE | 2018-09-11 14:21 | Pharmacy Report ---
Glycemic Control Consultation - Date of Service September 11, 2018 - Scope Scope: Glycemic Pharmacist consulted by Dr Haro on 09/11/18 for glycemic control and to write orders per [facility] inpatient glycemic control protocol - Objective Weight: 64.9 kg Accuchecks BSG (last 24hrs): 09/10/18 09/10/18 09/11/18 18:44 19:51 01:41 Glucose 236 H POC Glucose 199 H 235 H 09/11/18 09/11/18 09/11/18 04:17 06:12 09:02 Glucose 218 H POC Glucose 256 H 285 H 09/11/18 09/11/18 09/11/18 11:13 11:26 13:00 Glucose 174 H POC Glucose 175 H 146 H 09/11/18 14:00 Glucose POC Glucose 134 H Laboratory Data (last 24hrs): 09/10/18 09/11/18 09/11/18 19:51 09:02 11:13 Potassium 4.5 4.4 4.3 Carbon Dioxide 18 L 18 L 19 L Anion Gap 14.0 H 11.0 11.0 Creatinine 4.74 H* 4.38 H D 4.53 H* Est Cr Clr Drug Dosing 17.8 18.9 18.3 Beta-Hydroxybutyric Acd 43.60 H - Recent Pertinent Medications Outpatient Anti-diabetic Regimen: * Insulin pump * A1c = 8.4 % 06/03/18 The patient is currently receiving: * Basal insulin: Lantus 15 units x 1 * Correctional Insulin: Novolog Correction per scale ACHS Goal Range: Low 120 mg/dL - High 180 mg/dL Correction Factor: 25 mg/dL/unit * Prandial insulin: Per carb ratio of 1 unit per 10 grams CHO consumed Risk Factors for Insulin Resistance: * Diet: NPO - Assessment & Plan Assessment & Plan: ASSESSMENT: * Mr De Los Santos is a 48 y/o M with a PMH of T1DM maintained on insulin pump who presents with N/V. 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 A one time dose of 15 units of Lantus was given. Patient had mild electrolyte abnormalities and trace ketones in urine. He is not eating anything. * Concern for possible development of DKA. Hospitalist contacted glycemic pharmacist to ask for background on patient and then wanted to start insulin infusion. * Will not give additional Lantus at this point since patient is NPO. Maintain per drip protocol. PLAN FOR INPATIENT GLYCEMIC CONTROL: * Starting IV insulin infusion per moderate (moderate/severe) stress protocol * Goal Range 150 - 250 mg/dl * In the critical care setting, continuous IV insulin infusion has been shown to be the best method for achieving glycemic targets. * Please note that the plan above was derived based on current level of insulin resistance and hospital stress. These recommendations are appropriate for inpatient admission only. Plan of care upon discharge will need to be reassessed to avoid potential outpatient hypo/hyperglycemia. Thank you.
[2018-09-11 15:44] LABS: BUN Creatinine Ratio 16.2 (10-20); Calcium 7.7 mg/dl (8.5-10.1); Creatinine Clr Calc Pharmacy 18.5 ml/min; Est GFR (African American) 16.7; Est GFR (Non-African American) 14.4; Phosphorus 5.2 mg/dl (2.5-4.9)
[2018-09-11] MEDS ORDERED: cloNIDine HCl 0.1 MG TAB PO PRN (16:21)
[2018-09-11] MEDS ORDERED: MoRPHine SULFATE 2 MG/ML CARP IV PRN (16:21)
[2018-09-11 16:29] LABS: Potassium 4.3 mmol/L (3.5-5.1)
[2018-09-11 16:30] LABS: Magnesium 2.2 mg/dl (1.8-2.4)
[2018-09-11] MEDS ORDERED: AMLODIPINE BESYLATE 5 MG TAB PO ONE (16:45)
[2018-09-11] MEDS: INSULIN ASPART 100 UNITS/ML 3 ML PEN SC SCH (18:09)
[2018-09-11] MEDS: ACETAMINOPHEN 65 ML IV SCH (18:16)
[2018-09-11 19:33] LABS: BUN Creatinine Ratio 16.1 (10-20); Calcium 7.7 mg/dl (8.5-10.1); Creatinine Clr Calc Pharmacy 18.7 ml/min; Est GFR (African American) 16.9; Est GFR (Non-African American) 14.6; Magnesium 2.1 mg/dl (1.8-2.4); Phosphorus 4.9 mg/dl (2.5-4.9); Potassium 4.4 mmol/L (3.5-5.1)
[2018-09-11 23:47] LABS: BUN Creatinine Ratio 15.2 (10-20); Calcium 7.7 mg/dl (8.5-10.1); Creatinine Clr Calc Pharmacy 18.7 ml/min; Est GFR (African American) 16.9; Est GFR (Non-African American) 14.6; Magnesium 2.1 mg/dl (1.8-2.4); Phosphorus 4.7 mg/dl (2.5-4.9); Potassium 4.5 mmol/L (3.5-5.1)
[2018-09-12] MEDS: INSULIN ASPART 100 UNITS/ML 3 ML PEN SC SCH ×4 (00:32→18:38)
[2018-09-12] MEDS: ACETAMINOPHEN 65 ML IV SCH ×4 (00:39→17:49)
[2018-09-12] MEDS: PROCHLORPERAZINE 5 MG in SYRINGE 4 ML IV SCH ×4 (03:11→21:42)
[2018-09-12] MEDS: D5W AND 1/2NSS + 20MEQ KCL 20 MEQ/1,000 ML BAG IV SCH ×3 (03:11→18:35)
[2018-09-12 03:42] LABS: BUN Creatinine Ratio 14.4 (10-20); Calcium 7.4 mg/dl (8.5-10.1); Creatinine Clr Calc Pharmacy 18.6 ml/min; Est GFR (African American) 16.8; Est GFR (Non-African American) 14.5; Phosphorus 4.4 mg/dl (2.5-4.9); Potassium 4.5 mmol/L (3.5-5.1)
[2018-09-12 07:37] LABS: BUN Creatinine Ratio 14.7 (10-20); Calcium 7.6 mg/dl (8.5-10.1); Creatinine Clr Calc Pharmacy 18.7 ml/min; Est GFR (Non-African American) 14.7; Magnesium 2.1 mg/dl (1.8-2.4); Phosphorus 4.4 mg/dl (2.5-4.9); Potassium 4.5 mmol/L (3.5-5.1)
[2018-09-12] MEDS: AMLODIPINE BESYLATE 5 MG TAB PO SCH (08:12)
[2018-09-12] MEDS: INSULIN GLARGINE SOLOSTAR 100 UNITS/ML 3 ML PEN SC SCH (08:13)
--- NOTE | 2018-09-12 13:06 | Hospitalist Progress Note ---
Date of Service September 12, 2018 Assessment & Plan (1) Intractable vomiting: - Secondary to Diabetic Gastroparesis --> Does not appear that his renal function is the major contributer as his creatinine has been significantly elevated for quite a long period of time with improvement over the last month - Abdominal XR: Mild stool burden. No other evidence of acute intra-abdominal pathology. LFT changes - IV Zofran 4mg q6h - We will reintroduce motility promoting agents when able (2) Type I diabetes mellitus: - Insulin Pump on admission did transition insulin drip, was transitioned back to basal bolus been on his insulin drip - Last Hemoglobin A1c 8.4% (05/2018) Acidosis has reversed (3) Hypertension: - amlodipine and metoprolol - IV Hydralazine 10mg PRN (4) CKD (chronic kidney disease): - Baseline Cr of 2-2.5 --> Current Cr (4.74( is improved from discharge roughly 1 month ago (5.46 at that time) - Recent worsening of diabetic nephropathy when evaluated and discharged 08/13 (had significant diuresis with Lasix during that admission) - At that time had a renal US wnl and was evaluated by nephrology who had discussed HD if his nephropathy continued to worsen (5) Anemia: - Hgb of 9.2 - Most likely anemia of chronic diseases secondary to his CKD (6) DVT prophylaxis: SCDs (7) Depression: Patient is requesting to speak to psychiatric counseling likely instituting medication other than his Zoloft therapy Subjective Patient feels much better he still has some centralized back pain mostly in the lower thoracic upper lumbar area. His diabetes is in better control and he is on basal bolus insulin. His nausea is relieved Review of Systems ROS: Patient feels weak tired and fatigued No double vision blurry vision No problems with speech or swallowing No palpitations, chest pain or pressure No Wheezing or breathing issues No abdominal pain resolved nausea vomiting No burning urine urine frequency or changes in color No focal joint pain or muscle pain No skin rashes or oral lesions No unusual bruising or bleeding Upper lumbar focused back pain but no numbness or loss of strength or radicular symptoms No changes in memory or confusion Physical Exam Vital Signs (Past 24 Hours): Last Vital Signs Temp 36.6 C 09/12/18 07:44 Pulse 77 09/12/18 07:44 Resp 16 09/12/18 07:44 BP 170/87 H 09/12/18 07:44 tpulse Ox 95 09/12/18 07:44 he patient appeared chronically ill fatigued and withdrawn Vital signs as documented. Head exam is unremarkable. normocephalic, atraumatic Neck is without jugular venous distension, thyromegaly, or lymphademopathy Lungs are clear to auscultation and percussion. Cardiac exam reveals Rhythm is regular. First and second heart sounds normal. Abdominal exam reveals normal bowel sounds, no masses, no organomegaly Extremities are nonedematous and both pedal pulses are present Neurologic exam is A&Ox3, no focal deficits, strength is equal bilateral Is focused lower lumbar back pain which is reproducible with palpation no loss of sensation distally and intact patellar reflexes Psychologically seems neither anxious or depressed (1) Intractable vomiting Nausea presence: unspecified Vomiting type: unspecified Qualified Code(s): R11.10 - Vomiting, unspecified (2) Anemia Anemia type: unspecified type Qualified Code(s): D64.9 - Anemia, unspecified
[2018-09-12] MEDS ORDERED: OXYCODONE HCL IR 5 MG TAB (IMMEDIATE RELEASE) PO PRN (13:26)
--- NOTE | 2018-09-12 13:47 | Pharmacy Report ---
Glycemic Control Progress Note - Date of Service September 12, 2018 - Scope Glycemic Pharmacist consulted for glycemic control to write orders per [facility] inpatient glycemic control protocol. - Objective Accuchecks BSG(last 24 hours):: 09/11/18 09/11/18 09/11/18 14:00 15:03 15:04 Glucose 122 H POC Glucose 134 H 129 H 09/11/18 09/11/18 09/11/18 15:58 17:58 18:54 Glucose 125 H POC Glucose 118 H 125 H 09/11/18 09/12/18 09/12/18 23:10 00:30 03:15 Glucose 159 H 176 H POC Glucose 195 H 09/12/18 09/12/18 09/12/18 06:19 07:10 12:01 Glucose 204 H POC Glucose 207 H 209 H - Recent Pertinent Medications The patient is currently receiving: * Basal insulin: Lantus 15 units every 24 hours * Correctional Insulin: Novolog Correction per scale ACHS Goal Range: Low 120 mg/dL - High 160 mg/dL Correction Factor: 30 mg/dL/unit * Prandial insulin: Per carb ratio of 1 unit per 10 grams CHO consumed - Outpatient Anti-Diabetic Meds Novolog Pump - Assessment & Plan ASSESSMENT: * See progress note from 09/11/18 for more background info, in short: * Pt receiving SQ basal bolus insulin regimen for hyperglycemia secondary to baseline DM (outpatient regimen on hold) and currently NPO * Patient is currently receiving an average of 25 units of insulin per day + IV infusion from around 1100 to 1600 * 15 units of basal insulin * 10 units of prandial/correctional insulin * BSGs ranging 125 - 285 mg/dl over the past 24hrs * Changes needed to insulin regimen: * AM Fasting BSG = 207 mg/dl. This is slightly above goal range for patient based on inpatient targets and co-morbidities. This is reasonable for a type 1 diabetic who is NPO and on a dextrose infusion. Monitor. * Post-prandial BSGs are elevated. Attempting to use a slightly tighter CF of 25. * Total daily dose = ~30 units when eating. PLAN FOR INPATIENT GLYCEMIC CONTROL: * Continuing Lantus 15 units SQ daily * Tightening correction factor to 25 mg/dl/unit * Continuing carb ratio of 1 unit per 10 grams CHO consumed * Continuing goal range to Low 120 mg/dL - High 160 mg/dL * Please note that the plan above was derived based on current level of insulin resistance and hospital stress. These recommendations are appropriate for inpatient admission only. Plan of care upon discharge will need to be reassessed to avoid potential outpatient hypo/hyperglycemia. Thank you.
[2018-09-12] MEDS: LIDOCAINE 5% 1 PATCH TD SCH (14:07)
--- NOTE | 2018-09-12 14:35 | XRay Report ---
XR lumbar spine 2-3V CLINICAL HISTORY: 48 years-old Male presenting with lower back pain, fall at home. TECHNIQUE: Frontal, lateral, and cone-down lateral views of the lumbar spine were obtained. COMPARISON: Correlation made to CT of abdomen and pelvis from 11/26/2017. FINDINGS: No scoliosis. Normal lumbar lordosis. Mild anterior vertebral body height loss of T12 and to a minima l extent at L1. The appearance is unchanged since recent CT. Remaining vertebral bodies maintain norm al height. Intervertebral disc heights preserved. No radiographic evidence of osseous neural foramina l narrowing. No advanced degenerative change. No radiographic evidence of a new compression deformity or subluxation. Atherosclerotic calcification noted. Nonobstructive bowel gas pattern. IMPRESSION: 1. No acute osseous injury or advanced degenerative changes of the lumbar spine. Electronically signed by: Jose Zaldivar M.D. 09/12/2018 2:34 PM
[2018-09-12] MEDS: METOPROLOL TARTRATE 25 MG TAB PO SCH (21:42)
[2018-09-13] MEDS: ACETAMINOPHEN 65 ML IV SCH ×2 (00:30→06:38)
[2018-09-13] MEDS: INSULIN ASPART 100 UNITS/ML 3 ML PEN SC SCH ×4 (00:57→17:47)
[2018-09-13] MEDS: D5W AND 1/2NSS + 20MEQ KCL 20 MEQ/1,000 ML BAG IV SCH (02:24)
[2018-09-13] MEDS: PROCHLORPERAZINE 5 MG in SYRINGE 4 ML IV SCH ×2 (02:24→09:07)
[2018-09-13] MEDS: ONDANSETRON INJ 2 MG/ML 2 ML VIAL IV PRN (06:39)
[2018-09-13] MEDS ORDERED: SERTRALINE HCL 50 MG TABLET PO SCH (09:00)
[2018-09-13] MEDS ORDERED: INSULIN GLARGINE SOLOSTAR 100 UNITS/ML 3 ML PEN SC ONE (09:00)
[2018-09-13 09:09] LABS: Hematocrit (blood only) 28.2 % (42-52); Hemoglobin 9.1 g/dL (14.0-18.0); Mean Corpuscular Hgb Conc 32.3 g/dL (32-36); Mean Corpuscular Volume 92.8 fL (80-100); Mean Platelet Volume 8.6 fL (7.4-10.4); Platelet Count 361 K/uL (130-400); RDW Coefficient of Variation 13.3 % (11.5-14.5); RDW Standard Deviation 44.9 fL (36.4-46.3); Red Blood Count 3.04 M/uL (4.7-6.1); White Blood Count 10.82 K/uL (4.8-10.8)
[2018-09-13] MEDS: LIDOCAINE 5% 1 PATCH TD SCH (09:11)
[2018-09-13 09:38] LABS: BUN Creatinine Ratio 13.2 (10-20); Calcium 7.7 mg/dl (8.5-10.1); Creatinine Clr Calc Pharmacy 19.9 ml/min; Est GFR (African American) 18.3; Est GFR (Non-African American) 15.8; Magnesium 1.9 mg/dl (1.8-2.4); Potassium 5.2 mmol/L (3.5-5.1)
[2018-09-13] MEDS: D5W AND 1/2NSS 1,000 ML IV SCH ×2 (10:29→20:24)
[2018-09-13] MEDS: METOPROLOL TARTRATE 25 MG TAB PO SCH ×2 (10:56→20:24)
[2018-09-13] MEDS: AMLODIPINE BESYLATE 5 MG TAB PO SCH (10:57)
[2018-09-13] MEDS ORDERED: ACETAMINOPHEN 65 ML IV PRN (11:40)
[2018-09-13] MEDS ORDERED: METOCLOPRAMIDE HCL INJ 5 MG/ML 2 ML VIAL IV SCH ×2 (11:45→18:00)
[2018-09-13] MEDS ORDERED: PROCHLORPERAZINE 10 MG in SYRINGE 8 ML IV PRN (12:02)
[2018-09-13] MEDS: METOCLOPRAMIDE HCL INJ 5 MG/ML 2 ML VIAL IV SCH ×2 (12:29→17:46)
--- NOTE | 2018-09-13 13:15 | Psychiatric Consultation ---
Date of Consultation September 13, 2018 Impression / Recommendations Impression 48-year-old male admitted medically with intractable nausea and vomiting in the setting of gastroparesis. We are consulted to evaluate depression. The patient has had a trial of Remeron which was too sedating in the past. He has been started on Zoloft 50 mg by his PCP and so will titrate this to 100 mg daily. He was scheduled to start therapy at [facility] in [place] today but our liaison nurse has taken the liberty of rescheduling that for next week. He is agreeable to increasing medications and follow-up at [facility]. He meets no criteria for inpatient mental health treatment at this time (1) Depression: 09/13 - Increase Zoloft to 100 mg daily - Follow up with [facility] for therapy, appt has been rescheduled Present on Admission?: Yes Inventory Assets Strengths: Good support from parents Risk Factors Assessment Male: Yes : Yes Do You Have Access To A Gun?: Yes (Brother has guns, locked) Health Problems: Yes Mental Health Diagnoses: Yes Substance Use Disorders: No Previous Attempt: No Family History of Suicide: No Previous Psychiatric Hospitalization: No Protective Factors Assessment : No Responsible for Young Children: No Employed: No Supportive Family: Yes CPT Code 12705 Psych History Identifying Data 48-year-old male with diabetes, hypertension, chronic kidney disease and gastroparesis, admitted with intractable nausea and vomiting. We are consulted to evaluate depression and medications. Information is gathered from the patient and considered to be reliable. Chief Complaint "Loneliness". History of Present Illness Patient is a 48 year old male with a past medical history of Type 1 diabetes with recurrent episodes of gastroparesis, hypertension, and CKD that presents with nausea and dry heaves in the setting of gastroparesis.. He was last seen by our service in August of this year for similar complaints of depression. At that time it was recommended that Valium be tapered in favor of a shorter acting medication for GI purposes, and that Remeron be discontinued due to sedation as well. The patient is currently on Zoloft 50 mg as prescribed by his PCP, Dr. Moreno. The patient feels unwell at the time of my interview. He is lying on his side with nausea and hanging over the garbage can. He is nonetheless cooperative with the interview. He admits to depression since he and his 3 years ago. He describes feeling lonely, "no attachments" to anything. He currently resides with his parents who are very supportive as he can no longer work due to his medical conditions. He denies that he has ever been suicidal but admits to depressed mood with impaired sleep both difficulty falling asleep as well as staying asleep. He will get 3 hours of broken sleep per night usually. He reports variable energy, "up and down". He endorses chronic anxiety "forever" but denies panic attacks. He denies ever having had any auditory or visual hallucinations, denies self-injurious behaviors, eating disorder behaviors or any symptoms that would be congruent with a bipolar disorder. He would like some adjustments to his medications to help improve his mood. Past Psychiatric History Previous Psych History: Denies Current Psychiatric Diagnosis: Depression Do You Have Access To A Gun?: Yes (Brother has guns, locked) History of Previous Suicide Attempt: No Past Medication Trials: Lexapro 8 or 10 years ago, did not work Remerontoo sedating Allergies Allergy/AdvReac Type Severity Reaction Status Date / Time shellfish derived Allergy Severe anaphylaxis Verified 09/10/18 20:39 codeine Allergy Intermediate Hives Verified 09/11/18 16:32 promethazine Allergy Intermediate itchy/hives Verified 09/10/18 20:39 Home Medications Home Medications Medication Instructions Recorded Confirmed Type metoclopramide HCl [Reglan] 10 mg PO QID PRN #6 tab 11/26/17 09/10/18 History metoprolol tartrate 25 mg PO BID #60 tab 08/13/18 09/10/18 Rx sertraline 50 mg PO QAM #30 tab 08/13/18 09/10/18 Rx ondansetron 4 mg PO Q8H PRN #10 tab 09/09/18 09/10/18 Rx amlodipine 10 mg PO QAM 09/10/18 09/10/18 History atorvastatin 10 mg PO DAILY 09/10/18 09/10/18 History cholecalciferol (vitamin D3) 2,000 units PO QAM 09/10/18 09/10/18 History [Vitamin D3] furosemide 20 mg PO BID PRN 09/10/18 09/10/18 History hydralazine 25 mg PO TID 09/10/18 09/10/18 History insulin lispro [Humalog U-100 1 sliding scale dose SUBCUT 09/10/18 09/10/18 History Insulin] CONTINOUS Family History Denies for psychiatric issues substance use or suicide Substance Abuse History Occasional alcohol. Tried marijuana in college. 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 Employment Status: Disabled Marital Status: Number Of Children: 2, ages 15 and 13 Beliefs That Will Affect Care: None History of Legal Problems: Denies Psychological Trauma History Comment: Denies Patient History Medical History Acid reflux (Chronic) Hypertension (Chronic) Type I diabetes mellitus (Chronic) Gastroparesis due to DM (Chronic) CKD (chronic kidney disease) (Chronic) Depression (Chronic) Anemia (Chronic) Diabetic nephropathy (Chronic) CKD stage 3 due to type 1 diabetes mellitus (Chronic) Anxiety (Chronic) Surgical History History of appendectomy (Resolved) H/O shoulder surgery (Resolved) History of hip surgery (Resolved) Social History Communication Ability: Effective Teletypesetter Required: No Beliefs That Will Affect Care: None marital status: Legally Current Living Situation: Parent current occupational status: employed Other Information That Helps Us Care for You: No Feels Safe at Home: Yes Smoking Status: Never smoker Hx Alcohol Use: Yes Hx Substance Use: No Physical Exam Psychiatric Orientation: alert and cooperative Apperance: appropriately dressed and + disheveled [place] Motor Behavior: no abnormal motor movements Speech: normal rate/rhythm/volume of speech (Dry mouth) Affect: + depressed affect and + flat affect Mood: + depressed mood Thought Process: goal directed thought process Thought Content: reality based without delusions Suicidal Thoughts: denies suicidal thoughts Homicidal Thoughts: denies homicidal thoughts Hallucinations: no auditory hallucinations and no visual hallucinations Cognition: recent memory grossly intact, remote memory grossly intact, attention grossly intact and language grossly intact Estimated Intelligence: average estimated intelligence Insight: + fair insight Judgement: + fair judgement Vital Signs (Past 24 Hours) Last Vital Signs Temp 36.7 C 09/13/18 07:16 Pulse 67 09/13/18 07:16 Resp 18 09/13/18 07:16 BP 159/82 H 09/13/18 07:16 Pulse Ox 93 09/13/18 07:16 Review of Systems All systems reviewed & are unremarkable except as noted in HPI & below Constitutional: + malaise Gastrointestinal: + nausea and + vomiting Results & Data Medications Administered Amlodipine Besylate (Norvasc) 10 mg PO QAM [facility] Stop: 10/12/18 08:59 Last Admin: 09/13/18 10:57 Dose: 10 mg Documented by: [id number] Admin: 09/12/18 08:12 Dose: 10 mg Documented by: [id number] Hydralazine HCl (Hydralazine Hcl) 10 mg IV Q6H PRN PRN Reason: SBP >180 Stop: 10/11/18 01:11 Last Admin: 09/11/18 22:29 Dose: 10 mg Documented by: [id number] Admin: 09/11/18 12:12 Dose: 10 mg Documented by: [id number] Dextrose/Sodium Chloride (D5w And 1/2nss) 1,000 mls @ 125 mls/hr IV .Q8H [facility] Stop: 10/13/18 10:14 Last Admin: 09/13/18 10:29 Dose: 125 mls/hr Documented by: [id number] Insulin Aspart (Novolog Flexpen) 0 units SC Q6 [facility] Stop: 10/11/18 17:59 Last Admin: 09/13/18 12:32 Dose: 2 units Documented by: [id number] Cosigned by: [id number] Admin: 09/13/18 06:10 Dose: Not Given Documented by: [id number] Cosigned by: [id number] Admin: 09/13/18 00:57 Dose: Not Given Documented by: [id number] Cosigned by: [id number] Admin: 09/12/18 18:38 Dose: 1 units Documented by: [id number] Cosigned by: [id number] Admin: 09/12/18 12:04 Dose: 2 units Documented by: [id number] Cosigned by: [id number] Admin: 09/12/18 06:22 Dose: 2 units Documented by: [id number] Cosigned by: [id number] Admin: 09/12/18 00:32 Dose: 2 units Documented by: [id number] Cosigned by: [id number] Admin: 09/11/18 18:09 Dose: Not Given Documented by: [id number] Cosigned by: [id number] Insulin Glargine (Lantus Solostar Pen) 15 units SC DAILY [facility] Stop: 10/12/18 07:59 Last Admin: 09/12/18 08:13 Dose: 15 units Documented by: [id number] Cosigned by: [id number] [facility] ([facility]oderm 5%) [facility] Stop: 10/12/18 13:29 Last Admin: 09/13/18 09:11 Dose: Not Given Documented by: [id number] Admin: 09/12/18 14:07 Dose: 1 patch Documented by: [id number] Metoclopramide HCl (Reglan) 5 mg IV Q6 [facility] Stop: 10/13/18 11:59 Last Admin: 09/13/18 12:29 Dose: 5 mg Documented by: [id number] Metoprolol Tartrate (Lopressor) 25 mg PO BID [facility] Stop: 10/12/18 20:59 Last Admin: 09/13/18 10:56 Dose: 25 mg Documented by: [id number] Admin: 09/12/18 21:42 Dose: 25 mg Documented by: [id number] Miscellaneous (Remove Lidoderm Patch) 1 ea N/A DAILY@2100 [facility] Stop: 10/12/18 20:59 Last Admin: 09/12/18 21:42 Dose: 1 ea Documented by: [id number] Oxycodone HCl (Roxicodone Immediate Rel) 10 mg PO Q6H PRN PRN Reason: Pain Stop: 09/26/18 13:25 Last Admin: 09/13/18 05:18 Dose: 10 mg Documented by: [id number] Sertraline HCl (Zoloft) [facility] Stop: 10/13/18 08:59 Last Admin: 09/13/18 10:57 Dose: 50 mg Documented by: [id number]
--- NOTE | 2018-09-13 14:19 | Pharmacy Report ---
Pharmacy Glycemic Short Note 2 - Date of Service September 13, 2018 - Glycemic Short BSG Results (Last 24 hours): 09/12/18 09/13/18 09/13/18 18:26 00:29 06:02 Glucose POC Glucose 161 H 94 80 09/13/18 09/13/18 08:39 11:44 Glucose 130 H POC Glucose 205 H OUTPATIENT ANTIDIABETIC REGIMEN: * Humalog insulin pump * A1c 8.4% (06/03/18) ASSESSMENT: * See progress note from 09/11/18 for more background info, in short: * Pt admitted with intractable nausea and vomiting. He is currently NPO and on a D5 1/2 NS infusion @ 125 ml/hr. * Jorge Alberto received 20 units of insulin yesterday * 15 units of basal insulin * 5 units of prandial/correctional insulin * BSGs ranging 94 - 209 mg/dl over the past 24hrs * Changes needed to insulin regimen: * AM Fasting BSG = 80 mg/dl. This is below goal range for patient based on inpatient targets and co-morbidities. Decrease Lantus dose by 20%. * Post-prandial BSGs are mostly at goal. No changes to Novolog at this time. PLAN FOR INPATIENT GLYCEMIC CONTROL: * Basal insulin - decrease * Lantus 12 units SQ qAM * Bolus insulin * NovoLog per scale ACHS or Q6hrs while NPO * Goal Range: Low 120 mg/dL - High 160 mg/dL * Correction Factor: 25 mg/dL/unit * Nutritional / Prandial insulin per carb ratio of 1 unit per 10 grams CHO consumed Thank you.
--- NOTE | 2018-09-13 16:01 | CT Scan Report ---
CT lumbar spine wo con HISTORY: 48 years-old Male Rule out compression fracture acute low back pain status post fall COMPARISON: Lumbar spine radiographs 09/12/2018, CT abdomen and pelvis 11/26/2017 TECHNIQUE: Multiple axial CT images of the lumbar spine were obtained without the use of IV contrast. A dose lowering technique was used consistent with the principals of АННА. FINDINGS: There is no acute fracture or subluxation of the lumbar spine identified. There is only minimal multi level spondylitic spurring with facet arthrosis. Evaluation of the central canal and neuroforamina is better assessed by MRI. There is no significant central canal or foraminal narrowing identified. The re is a small posterior annular disc bulge noted at the L4-L5 level which flattens the ventral thecal sac. No significant central canal or foraminal narrowing. There is marked urinary bladder distention with bilateral perinephric stranding and suggestion of uro thelial thickening. There is mild right-sided hydroureter. Perivesicular stranding is noted. Nonspeci fic body wall edema. IMPRESSION: 1. No acute fracture or subluxation of the lumbar spine. 2. Marked urinary bladder distention with perivesicular stranding is noted. Additionally, there is mo derate bilateral perinephric stranding with urothelial thickening and mild right-sided hydroureter. C hronic clinically to exclude urinary bladder outlet obstruction. The above report was generated using voice recognition software. It may contain grammatical, syntax o r spelling errors. Electronically signed by: Ti Martinez M.D. 09/13/2018 3:59 PM
--- NOTE | 2018-09-13 16:14 | Hospitalist Progress Note ---
Date of Service September 13, 2018 Assessment & Plan (1) Intractable vomiting: - Likely related to diabetic gastroparesis; has had frequent re-admissions for similar symptoms. - Abd XR showed mild stool burden, no other acute finding. - Start Reglan 5 mg IV q6hr scheduled with Compazine prn N/V. - NPO; on IV fluids at 125 cc/hr. - Has been evaluated at [facility] for symptoms -- was started on ?medication but discontinued at home due to side effect of fatigue. (2) Lumbar spine pain: - Developed lumbar spine pain following fall at home. - L-spine XR was negative for acute findings. - L-spine CT showed no acute fracture. - Lidocaine patch ordered; Roxicodone and Morphine prn pain. (3) Urinary retention: - Significant urinary retention noted on CT A/P; does not have sensation to void, will void >1000 cc. - Bladder scan q6hr, straight cath for PVR >350 cc. - Will consult urology for evaluation -- required parker during last admission for urinary retention. - May be neurogenic bladder from diabetic neuropathy. (4) Type I diabetes mellitus: - Most recent A1C was 8.4 in May 2018. - On insulin pump at home -- was transitioned to insulin drip at admission. - Pharmacy consulted, on basal/bolus insulin regimen. (5) Hypertension: - Continue home Amlodipine and Metoprolol as prescribed - has had issues with PO meds due to N/V. - Start Hydralazine 10 mg IV q6hr prn SBP >180. (6) CKD (chronic kidney disease) stage 4, GFR 15-29 ml/min: - Baseline creatinine was 2-2.5, increased to 5.4 ~1 month ago. - Creatinine is now trending down, was 4.4 on morning labs. - Will need nephrology consulted for worsening renal function. - Renally dose all meds. (7) Anemia: - Anemia of chronic disease in setting of CKD. - Monitor CBC as inpatient. - B12 and Folate were WNL during last admission. (8) Depression: - Psych consulted per patient request. Has multiple psychosocial stressors over last year. - Will increase Zoloft to 100 mg daily. - Will need to follow up as outpatient. (9) Electrolyte abnormality: - K level increasd to 5.2 on morning labs. - Removed KCl from IV fluids; repeat level was 5.1. - Will monitor qAM. (10) DVT prophylaxis: - SCDs. Dispo: Med/surg for treatment of N/V. Supervising Physician Co-Signing Physician Notes PA Supervision Note: I did not personally see or examine the patient today, but I verified all julien points of CAROL Gibson's assessment and plan with the following exception s/additions: None Subjective Pt. has ongoing nausea and vomiting this morning. He states nausea/vomiting was improving starting yesterday afternoon but was recurrent after taking Roxicodone this morning. Had vomiting throughout the course of the morning. He has ongoing low back pain (reason for taking Oxycodone). He fell at home on Thu -- back pain started after fall. Lumbar spine XR was negative, will obtain CT of L-spine. Denies radiation of pain down legs, numbness or tingling. BG now well controlled, pharmacy is managing. In regards to diabetic gastroparesis, pt. states he was evaluated at [facility] and placed on a medication. He discontinued med due to side effect of fatigue. Review of Systems All systems reviewed & are unremarkable except as noted in HPI & below Constitutional: + fatigue, + weakness and + anorexia; no fever and no chills Respiratory: no cough and no dyspnea Cardiovascular: no chest pain, no palpitations and no edema Gastrointestinal: + nausea and + vomiting; no abdominal pain, no constipation and no diarrhea/loose stools Genitourinary (Male): no difficulty urinating Musculoskeletal: + back pain (Lumbar spine pain ); no radicular pain Psychiatric: + depression Allergy / Immunological: no rash Physical Exam Vital Signs (Past 24 Hours): Last Vital Signs Temp 36.7 C 09/13/18 07:16 Pulse 67 09/13/18 07:16 Resp 18 09/13/18 07:16 BP 159/82 H 09/13/18 07:16 Pulse Ox 93 09/13/18 07:16 Physical Exam: General: Resting comfortably in no apparent distress; A&OX3 HEENT: NC/AT; PERRLA with EOMI; [place] conjunctiva, MMM. Neck: Supple and nontender Cardiac: RRR w/o murmurs, gallops or rubs Lungs: CTA bilaterally; No rhonchi, wheezing, or rales Abdomen: Bowel normoactive X 4; Nontender to palpation Back: No tenderness noted over lumbar spine. Extremities: Warm. No edema present Neuro: No focal weakness Skin: No rash Results & Data Laboratory Results 09/13/18 09/13/18 09/13/18 Range/Units 14:04 11:44 08:39 WBC (4.8-10.8) K/uL RBC (4.7-6.1) M/uL Hgb (14.0-18.0) g/dL Hct (42-52) % MCV (80-100) fL MCH (25-34) pg MCHC (32-36) g/dL RDW Std Deviation (36.4-46.3) fL RDW Coeff of Kami (11.5-14.5) % Plt Count (130-400) K/uL MPV (7.4-10.4) fL Sodium 137 (136-145) mmol/L Potassium 5.1 5.2 H D (3.5-5.1) mmol/L Chloride 111 H (98-107) mmol/L Carbon Dioxide 21 (21-32) mmol/L Anion Gap 5.0 (3-11) BUN 55 H (7-18) mg/dl Creatinine 4.17 H (0.6-1.4) mg/dl Est Cr Clr Drug Dosing 19.9 ml/min Est GFR ( Amer) 18.3 Est GFR (Non-Af Amer) 15.8 BUN/Creatinine Ratio 13.2 (10-20) Glucose 130 H (70-99) mg/dl POC Glucose 205 H (70-99) Calcium 7.7 L (8.5-10.1) mg/dl Magnesium 1.9 (1.8-2.4) mg/dl 09/13/18 09/13/18 09/13/18 Range/Units 08:39 06:02 00:29 WBC 10.82 H (4.8-10.8) K/uL RBC 3.04 L (4.7-6.1) M/uL Hgb 9.1 L (14.0-18.0) g/dL Hct 28.2 L (42-52) % MCV 92.8 (80-100) fL MCH 29.9 (25-34) pg MCHC 32.3 (32-36) g/dL RDW Std Deviation 44.9 (36.4-46.3) fL RDW Coeff of Kami 13.3 (11.5-14.5) % Plt Count 361 (130-400) K/uL MPV 8.6 (7.4-10.4) fL Sodium (136-145) mmol/L Potassium (3.5-5.1) mmol/L Chloride (98-107) mmol/L Carbon Dioxide (21-32) mmol/L Anion Gap (3-11) BUN (7-18) mg/dl Creatinine (0.6-1.4) mg/dl Est Cr Clr Drug Dosing ml/min Est GFR ( Amer) Est GFR (Non-Af Amer) BUN/Creatinine Ratio (10-20) Glucose (70-99) mg/dl POC Glucose 80 94 (70-99) Calcium (8.5-10.1) mg/dl Magnesium (1.8-2.4) mg/dl 09/12/18 Range/Units 18:26 WBC (4.8-10.8) K/uL RBC (4.7-6.1) M/uL Hgb (14.0-18.0) g/dL Hct (42-52) % MCV (80-100) fL MCH (25-34) pg MCHC (32-36) g/dL RDW Std Deviation (36.4-46.3) fL RDW Coeff of Kami (11.5-14.5) % Plt Count (130-400) K/uL MPV (7.4-10.4) fL Sodium (136-145) mmol/L Potassium (3.5-5.1) mmol/L Chloride (98-107) mmol/L Carbon Dioxide (21-32) mmol/L Anion Gap (3-11) BUN (7-18) mg/dl Creatinine (0.6-1.4) mg/dl Est Cr Clr Drug Dosing ml/min Est GFR ( Amer) Est GFR (Non-Af Amer) BUN/Creatinine Ratio (10-20) Glucose (70-99) mg/dl POC Glucose 161 H (70-99) Calcium (8.5-10.1) mg/dl Magnesium (1.8-2.4) mg/dl (1) Anemia Anemia type: unspecified type Qualified Code(s): D64.9 - Anemia, unspecified (2) Intractable vomiting Nausea presence: unspecified Vomiting type: unspecified Qualified Code(s): R11.10 - Vomiting, unspecified
[2018-09-13] MEDS ORDERED: HydrALAZINE HCL 20 MG/ML VIAL IV PRN (16:31)
[2018-09-14] MEDS: METOCLOPRAMIDE HCL INJ 5 MG/ML 2 ML VIAL IV SCH ×4 (00:26→18:01)
[2018-09-14] MEDS: INSULIN ASPART 100 UNITS/ML 3 ML PEN SC SCH ×5 (00:26→21:01)
[2018-09-14] MEDS: D5W AND 1/2NSS 1,000 ML IV SCH (04:57)
[2018-09-14 07:49] LABS: BUN Creatinine Ratio 12.7 (10-20); Calcium 7.5 mg/dl (8.5-10.1); Creatinine Clr Calc Pharmacy 20.9 ml/min; Est GFR (African American) 19.5; Est GFR (Non-African American) 16.8; Magnesium 1.7 mg/dl (1.8-2.4); Potassium 4.8 mmol/L (3.5-5.1)
[2018-09-14] MEDS: METOPROLOL TARTRATE 25 MG TAB PO SCH ×2 (08:30→20:58)
[2018-09-14] MEDS: LIDOCAINE 5% 1 PATCH TD SCH (08:31)
[2018-09-14] MEDS: SERTRALINE HCL 100 MG TABLET PO SCH (08:31)
[2018-09-14] MEDS: AMLODIPINE BESYLATE 5 MG TAB PO SCH (08:31)
[2018-09-14] MEDS: INSULIN GLARGINE SOLOSTAR 100 UNITS/ML 3 ML PEN SC SCH (08:34)
--- NOTE | 2018-09-14 09:45 | Pharmacy Report ---
Pharmacy Glycemic Short Note 2 - Date of Service September 14, 2018 - Glycemic Short BSG Results (Last 24 hours): 09/13/18 09/13/18 09/14/18 11:44 17:45 00:18 Glucose POC Glucose 205 H 219 H 186 H 09/14/18 09/14/18 06:00 07:17 Glucose 244 H POC Glucose 239 H OUTPATIENT ANTIDIABETIC REGIMEN: * Humalog insulin pump * A1c 8.4% (06/03/18) ASSESSMENT: * See progress note from 09/11/18 for more background info, in short: * Pt admitted with intractable nausea and vomiting. Diet advanced to clear liquids today. * Jorge Alberto received 19 units of insulin yesterday * 12 units of basal insulin * 7 units of prandial/correctional insulin * BSGs ranging 80 - 219 mg/dl over the past 24hrs * Changes needed to insulin regimen: * AM Fasting BSG = 239 mg/dl. This is above goal range for patient based on inpatient targets and co-morbidities. I will resume previous dose of Lantus 15 units daily. * Post-prandial BSGs are above goal. I suspect lower dose of Lantus given yesterday contributed to persistent hyperglycemia yesterday since patient was not eating during this time. I will lower goal range so that the patient received more correctional insulin. If BSG continues to spike at lunchtime, I will consider tightening carb coverage with breakfast only. PLAN FOR INPATIENT GLYCEMIC CONTROL: * Basal insulin - increase * Lantus 15 units SQ qAM * Bolus insulin * NovoLog per scale ACHS or Q6hrs while NPO * Lower Goal Range: Low 120 mg/dL - High 140 mg/dL * Correction Factor: 25 mg/dL/unit * Nutritional / Prandial insulin per carb ratio of 1 unit per 10 grams CHO consumed Thank you.
[2018-09-14] MEDS: LACTATED RINGER'S 1,000 ML IV SCH (10:33)
[2018-09-14] MEDS: SODIUM BICARBONATE 650 MG TAB PO SCH ×2 (10:33→20:58)
--- NOTE | 2018-09-14 11:00 | Urology Consultation ---
Date of Consultation September 14, 2018 Assessment & Plan (1) Urinary retention: Continues to void spontaneously, has required straight cath x 1. Continue to monitor PVR q6 hours and straight cath PRN >350ml. Discussed with patient, if straight cath needed repeatedly will likely benefit from indwelling Lee -- understandably, he would like to avoid this if possible. Tamsulosin QHS ordered. Will arrange outpatient urology follow up. Thank you for allowing us to participate in the care of this patient. Please contact our service with any additional questions or concerns. History of Present Illness Reason for Consultation: Urinary retention Attending Physician: Guevara Townsend History of Present Illness 48YO male with urinary retention. Patient recently evaluated by our service last month while inpatient, required indwelling Lee at that time. Unfortunately has been admitted again before able to follow up at our outpatient clinic. Patient reports that his urination is not bothersome, continues to void spontaneously. Has required straight cath x 1. No dysuria, no hematuria. No fever/chills. No flank pain. Allergies Allergy/AdvReac Type Severity Reaction Status Date / Time shellfish derived Allergy Severe anaphylaxis Verified 09/10/18 20:39 codeine Allergy Intermediate Hives Verified 09/11/18 16:32 promethazine Allergy Intermediate itchy/hives Verified 09/10/18 20:39 Home Medications Home Medications Medication Instructions Recorded Confirmed Type metoclopramide HCl [Reglan] 10 mg PO QID PRN #6 tab 11/26/17 09/10/18 History metoprolol tartrate 25 mg PO BID #60 tab 08/13/18 09/10/18 Rx sertraline 50 mg PO QAM #30 tab 08/13/18 09/10/18 Rx ondansetron 4 mg PO Q8H PRN #10 tab 09/09/18 09/10/18 Rx amlodipine 10 mg PO QAM 09/10/18 09/10/18 History atorvastatin 10 mg PO DAILY 09/10/18 09/10/18 History cholecalciferol (vitamin D3) 2,000 units PO QAM 09/10/18 09/10/18 History [Vitamin D3] furosemide 20 mg PO BID PRN 09/10/18 09/10/18 History hydralazine 25 mg PO TID 09/10/18 09/10/18 History insulin lispro [Humalog U-100 1 sliding scale dose SUBCUT 09/10/18 09/10/18 History Insulin] CONTINOUS Patient History Medical History Acid reflux (Chronic) Hypertension (Chronic) Type I diabetes mellitus (Chronic) Gastroparesis due to DM (Chronic) Depression (Chronic) Anemia (Chronic) Diabetic nephropathy (Chronic) CKD stage 3 due to type 1 diabetes mellitus (Chronic) Anxiety (Chronic) Surgical History History of appendectomy (Resolved) H/O shoulder surgery (Resolved) History of hip surgery (Resolved) Family History Grandfather Heart attack Social History Communication Ability: Effective Beliefs That Will Affect Care: None marital status: Legally Current Living Situation: Parent current occupational status: employed Other Information That Helps Us Care for You: No Feels Safe at Home: Yes Smoking Status: Never smoker Hx Alcohol Use: Yes Hx Substance Use: No Review of Systems Constitutional: no fever and no chills Eyes: + corrective lenses Ear, Nose, Mouth, Throat: no ear pain Respiratory: no dyspnea Cardiovascular: no chest pain Gastrointestinal: + nausea and + vomiting; no abdominal pain Genitourinary (Male): no dysuria, no difficulty urinating, no hematuria and no flank pain Musculoskeletal: no back pain Neurologic: no tingling and no numbness Psychiatric: + anxiety Physical Exam Vital Signs (Past 24 Hours): Last Vital Signs Temp 37.0 C 09/14/18 07:24 Pulse 79 09/14/18 07:24 Resp 18 09/14/18 07:24 BP 177/88 H 09/14/18 10:40 Pulse Ox 94 09/14/18 07:24 Constitutional: WD/WN, vitals as above Neck: normal visual inspection Respiratory: normal respiratory effort Cardiovascular: Vessels: no JVD Gastrointestinal (Abdomen): Percussion/Palpation: abdomen soft; abdomen nontender Psychiatric: A+Ox3, euthymic affect Genitourinary: bladder normal to palpation
[2018-09-14] MEDS: MAGNESIUM SULFATE / D5W 1 GM/100 ML BAG IV SCH ×2 (11:35→12:47)
--- NOTE | 2018-09-14 13:14 | Hospitalist Progress Note ---
Date of Service September 14, 2018 Assessment & Plan (1) Intractable vomiting: - Likely related to diabetic gastroparesis; has had frequent re-admissions for similar symptoms. - Abd XR showed mild stool burden, no other acute finding. - Reglan 5 mg IV q6hr scheduled with Compazine prn N/V. - Advance to clear liquid diet; decrease IV fluids to 50 cc/hr due to fluid overload. - Has been evaluated at [facility] for symptoms -- was started on Diazepam but discontinued at home due to side effect of fatigue. (2) Lumbar spine pain: - Developed lumbar spine pain following fall at home. - L-spine XR was negative for acute findings. - L-spine CT showed no acute fracture. - L-spine MRI results as noted below -- has acute T12 compression fracture. - Lidocaine patch ordered; Roxicodone prn pain -- has not been requiring. (3) T12 compression fracture: - MRI of L-spine showed T12 compression fracture -- likely related to recent fall at home prior to admission. - Pain control as noted above with Lidocaine patch. - Will consult orthopedics for evaluation. (4) Urinary retention: - Significant urinary retention noted on CT A/P;. - Can void if prompted to do so but otherwise will hold urine due to lack of sensation to void. - Bladder scan q6hr, straight cath for PVR >350 cc. - Consulted urology, appreciate input. Will need to follow up as outpatient. - May be neurogenic bladder from diabetic neuropathy. (5) Metabolic acidosis: - Non anion gap, noted on labs this morning in setting of CKD. - Will change IV fluids to lactated ringers at 50 cc/hr. - Start sodium bicarb 650 BID. - Repeat BMP at 17:00 to monitor for improvement. (6) Anasarca: - Noted on L-spine MRI; related to aggressive IV fluid hydration in setting of CKD. - Will decrease IV fluids to 50 cc/hr; avoid discontinuation due to very poor PO intake. - Monitor daily weights closely -- has not had significant weight gain but weights are likely measured via bedscale. (7) Type I diabetes mellitus: - Most recent A1C was 8.4 in May 2018. - On insulin pump at home -- was transitioned to insulin drip at admission. - Pharmacy consulted, on basal/bolus insulin regimen. (8) Hypertension: - Continue home Amlodipine and Metoprolol as prescribed. - Has had ongoing uncontrolled HTN -- Hydralazine 10 mg IV q6hr prn SBP >180. (9) CKD (chronic kidney disease) stage 4, GFR 15-29 ml/min: - Baseline creatinine was 2-2.5, increased to 5.4 ~1 month ago. - Creatinine is now trending down, was 3.96 on morning labs. - Consider nephrology consulted for worsening renal function. - Renally dose all meds. (10) Anemia: - Anemia of chronic disease in setting of CKD. - Monitor CBC as inpatient. - B12 and Folate were WNL during last admission. (11) Depression: - Psych consulted per patient request. Has multiple psychosocial stressors over last year. - Increased Zoloft to 100 mg daily. - Will need to follow up as outpatient. (12) Electrolyte abnormality: - Mag level 1.7 - ordered mag sulfate 2 gm IV. (13) DVT prophylaxis: - SCDs. Dispo: Med/surg for treatment of N/V. Supervising Physician Co-Signing Physician Notes Attending Attestation- Chart reviewed in detail, care plan d/w CAROL Diggs. I agree w/ the julien components of her documentation. Patient's vomiting 2nd to gastroparesis improving. T1DM w/ acceptable control. Appreciate ortho-spine consult and recommendations. Guevara Townsend MD Subjective Review of Systems All systems reviewed & are unremarkable except as noted in HPI & below Pt. is improved overall. Continues to have nausea but denies vomiting over the last 12 hours. He would like to attempt advancing to a clear liquid diet. Lumbar pain now improved, has lidocaine patch in place and has not required Oxycodone dose over last 24 hours. He has urinary retention -- voided [address] scan yesterday afternoon. Pt. voided 500 cc with small <60 cc post void residual this morning. He states he does not have the urgency to urinate at home, therefore he has large volume of urine when he chooses to void. Denies hematuria, dysuria. Has not required straight cath during this admission but did require parker cath during last admission for retention. Urology is consulted. Constitutional: + fatigue, + weakness and + anorexia; no fever and no chills Respiratory: no cough and no dyspnea Cardiovascular: no chest pain, no palpitations, no lightheadedness, no syncope and no edema Gastrointestinal: + nausea; no abdominal pain, no vomiting, no constipation and no diarrhea/loose stools Genitourinary (Male): + difficulty urinating; no dysuria and no hematuria Musculoskeletal: + back pain; no joint pain Integumentary: no non- healing lesions Allergy / Immunological: no rash Physical Exam Vital Signs (Past 24 Hours): Last Vital Signs Temp 37.0 C 09/14/18 07:24 Pulse 79 09/14/18 07:24 Resp 18 09/14/18 07:24 BP 177/88 H 09/14/18 10:40 Pulse Ox 94 09/14/18 07:24 Physical Exam: General: Resting comfortably in no apparent distress; A&OX3 HEENT: NC/AT; PERRLA with EOMI; [place] conjunctiva, MMM. Neck: Supple and nontender Cardiac: RRR w/o murmurs, gallops or rubs Lungs: CTA bilaterally; No rhonchi, wheezing, or rales Abdomen: Bowel normoactive X 4; Nontender to palpation Back: No tenderness noted over lumbar spine. Extremities: Warm. No edema present Neuro: No focal weakness Skin: No rash Results & Data Laboratory Results 09/14/18 09/14/18 09/14/18 Range/Units 11:54 07:17 06:00 Sodium 135 L (136-145) mmol/L Potassium 4.8 (3.5-5.1) mmol/L Chloride 111 H (98-107) mmol/L Carbon Dioxide 17 L (21-32) mmol/L Anion Gap 7.0 (3-11) BUN 50 H (7-18) mg/dl Creatinine 3.96 H (0.6-1.4) mg/dl Est Cr Clr Drug Dosing 20.9 ml/min Est GFR ( Amer) 19.5 Est GFR (Non-Af Amer) 16.8 BUN/Creatinine Ratio 12.7 (10-20) Glucose 244 H (70-99) mg/dl POC Glucose 211 H 239 H (70-99) Calcium 7.5 L (8.5-10.1) mg/dl Phosphorus 4.0 (2.5-4.9) mg/dl Magnesium 1.7 L (1.8-2.4) mg/dl 09/14/18 09/13/1819 Range/Units 00:18 17:45 14:04 Sodium (136-145) mmol/L Potassium 5.1 (3.5-5.1) mmol/L Chloride (98-107) mmol/L Carbon Dioxide (21-32) mmol/L Anion Gap (3-11) BUN (7-18) mg/dl Creatinine (0.6-1.4) mg/dl Est Cr Clr Drug Dosing ml/min Est GFR ( Amer) Est GFR (Non-Af Amer) BUN/Creatinine Ratio (10-20) Glucose (70-99) mg/dl POC Glucose 186 H 219 H (70-99) Calcium (8.5-10.1) mg/dl Phosphorus (2.5-4.9) mg/dl Magnesium (1.8-2.4) mg/dl (1) Anemia Anemia type: unspecified type Qualified Code(s): D64.9 - Anemia, unspecified (2) Intractable vomiting Nausea presence: unspecified Vomiting type: unspecified Qualified Code(s): R11.10 - Vomiting, unspecified
[2018-09-14] MEDS ORDERED: Nursing to Pharmacy Communication ONE (15:47)
--- NOTE | 2018-09-14 16:25 | Magnetic Resonance Report ---
MR lumbar spine wo con CLINICAL HISTORY: 48 years-old Male presenting with fall last day in the shower, low back pain, now with nausea and vomiting, concern for spinal cord compression. TECHNIQUE: Multisequence, multiplanar MR imaging of the lumbar spine was performed without the use of intravenous contrast. IV contrast: None. COMPARISON: CT from 09/13/2018. FINDINGS: Localizer images: Diffuse body wall edema. Normal lumbar lordosis. Bony edema and mild anterior vertebral body height loss at T11 consistent wit h an acute compression fracture. Superior endplate concavity with mild to moderate anterior vertebral body height loss of T12 consistent with a compression deformity. There is no associated bony edema t o suggest acuity of this injury. Lumbar vertebral bodies maintain normal height, alignment, and bone marrow signal intensity. Intervertebral discs normal. No evidence of spinal canal or neural foraminal narrowing. Spinal cord terminates in good position at the superior endplate of L1. Cauda equina normal in morpho logy allowing for mild degradation of image quality on axial T2-weighted imaging. No gross evidence o f an epidural collection. Paraspinal muscle edema is evident though there is also more diffuse retrop eritoneal and body wall edema. This is nonspecific. Remaining visualized soft tissues within normal l imits. T2 flow voids within the vasculature preserved. IMPRESSION: 1. Acute mild compression fracture of T11. 2. Chronic appearing mild to moderate compression fracture of T12. 3. Normal lumbar spine. No spinal canal narrowing. No evidence of spinal cord compression cauda equi na syndrome. 4. Volume overload is suggested by anasarca. Electronically signed by: Jose Zaldivar M.D. 09/14/2018 4:24 PM
[2018-09-14 18:21] LABS: BUN Creatinine Ratio 11.9 (10-20); Creatinine Clr Calc Pharmacy 20.8 ml/min; Est GFR (African American) 19.3; Est GFR (Non-African American) 16.6; Potassium 4.8 mmol/L (3.5-5.1)
[2018-09-14] MEDS ORDERED: TAMSULOSIN HCL 0.4 MG CAP PO SCH (21:00)
[2018-09-15] MEDS: METOCLOPRAMIDE HCL INJ 5 MG/ML 2 ML VIAL IV SCH ×2 (00:20→05:32)
[2018-09-15] MEDS: LACTATED RINGER'S 1,000 ML IV SCH (00:21)
[2018-09-15 05:40] LABS: Hematocrit (blood only) 28.1 % (42-52); Hemoglobin 9.2 g/dL (14.0-18.0); Mean Corpuscular Hgb Conc 32.7 g/dL (32-36); Mean Corpuscular Volume 90.9 fL (80-100); Mean Platelet Volume 8.2 fL (7.4-10.4); Platelet Count 308 K/uL (130-400); RDW Coefficient of Variation 13.2 % (11.5-14.5); RDW Standard Deviation 43.9 fL (36.4-46.3); Red Blood Count 3.09 M/uL (4.7-6.1); White Blood Count 8.79 K/uL (4.8-10.8)
[2018-09-15 05:59] LABS: Calcium 7.6 mg/dl (8.5-10.1); Creatinine Clr Calc Pharmacy 21.5 ml/min; Est GFR (African American) 20.1; Est GFR (Non-African American) 17.4; Magnesium 2.2 mg/dl (1.8-2.4); Potassium 4.4 mmol/L (3.5-5.1)
[2018-09-15] MEDS ORDERED: METOPROLOL TARTRATE 25 MG TAB PO SCH ×2 (09:00→21:00)
[2018-09-15] MEDS: LIDOCAINE 5% 1 PATCH TD SCH (09:04)
[2018-09-15] MEDS: SODIUM BICARBONATE 650 MG TAB PO SCH (09:04)
[2018-09-15] MEDS: SERTRALINE HCL 100 MG TABLET PO SCH (09:04)
[2018-09-15] MEDS: INSULIN GLARGINE SOLOSTAR 100 UNITS/ML 3 ML PEN SC SCH (09:04)
[2018-09-15] MEDS: AMLODIPINE BESYLATE 5 MG TAB PO SCH (09:04)
[2018-09-15] MEDS: INSULIN ASPART 100 UNITS/ML 3 ML PEN SC SCH ×2 (09:05→13:25)
--- NOTE | 2018-09-15 09:31 | Consultation ---
Date of Consultation September 15, 2018 Assessment & Plan (1) T12 compression fracture: Acute T11 superior endplate compression fracture status post fall 1 week ago Plan is to treat this conservatively. Images have been reviewed with Dr. Vitale. I will order an Alpine TLSO to be worn at all times. May remove when bathing. Ambulate ad anita. No lifting over 5 pounds. We will follow him in the office in about 2 weeks. [phone] for appointment Supervising Physician Co-Signing Physician Notes Dr. Julian Vitale History of Present Illness Reason for Consultation: Thoracic compression fracture Attending Physician: Guevara Townsend History of Present Illness This is a pleasant 48-year-old gentleman we are asked to see in consultation regarding an acute T11 compression deformity. Patient reports 1 week ago he was getting out of the shower and he slipped and fell. He reports landing on his buttock. He had immediate pain. He was able to get up on his own but went to the emergency room due to above-mentioned complaints. He has an extensive medical history. He reports he lives with his parents. Normally ambulates independently. Denies any radicular complaints. Does have a history of urinary retention. Denies any saddle paresthesia. Patient has a history of a known compression fracture 2 or 3 years ago. This healed with conservative treatment. Allergies Allergy/AdvReac Type Severity Reaction Status Date / Time shellfish derived Allergy Severe anaphylaxis Verified 09/10/18 20:39 codeine Allergy Intermediate Hives Verified 09/11/18 16:32 promethazine Allergy Intermediate itchy/hives Verified 09/10/18 20:39 Home Medications Home Medications Medication Instructions Recorded Confirmed Type metoprolol tartrate 25 mg PO BID #60 tab 08/13/18 09/10/18 Rx Humalog U-100 Insulin 1 sliding scale dose SUBCUT 09/10/18 09/10/18 History CONTINOUS amlodipine 10 mg PO QAM 09/10/18 09/10/18 History atorvastatin 10 mg PO DAILY 09/10/18 09/10/18 History cholecalciferol (vitamin D3) 2,000 units PO QAM 09/10/18 09/10/18 History [Vitamin D3] furosemide 20 mg PO BID PRN 09/10/18 09/10/18 History hydralazine 25 mg PO TID 09/10/18 09/10/18 History metoclopramide HCl 5 mg PO Q6 30 Days #120 tab 09/15/18 Rx sertraline 100 mg PO QAM 30 Days #30 tab 09/15/18 Rx sodium bicarbonate 650 mg PO BID #60 tab 09/15/18 Rx tamsulosin 0.4 mg PO HS 30 Days #30 cap 09/15/18 Rx Patient History Medical History Acid reflux (Chronic) Hypertension (Chronic) Type I diabetes mellitus (Chronic) Gastroparesis due to DM (Chronic) Depression (Chronic) Anemia (Chronic) Diabetic nephropathy (Chronic) CKD stage 3 due to type 1 diabetes mellitus (Chronic) Anxiety (Chronic) Surgical History History of appendectomy (Resolved) H/O shoulder surgery (Resolved) History of hip surgery (Resolved) Family History Grandfather Heart attack Social History Preferred Language: Syriac Beliefs That Will Affect Care: None marital status: Legally Current Living Situation: Parent current occupational status: employed Other Information That Helps Us Care for You: No Feels Safe at Home: Yes Smoking Status: Never smoker Hx Alcohol Use: Yes Hx Substance Use: No Review of Systems Nausea and vomiting Thoracolumbar pain Physical Exam Vital Signs (Past 24 Hours): Last Vital Signs Temp 36.5 C 09/15/18 07:52 Pulse 77 09/15/18 07:52 Resp 18 09/15/18 07:52 BP 187/97 H 09/15/18 07:52 Pulse Ox 96 09/15/18 07:52 Physical Exam: Alert and oriented x3. Cooperative with exam. He is able to roll over in bed for me. There is no ecchymosis or lacerations across the thoracolumbar spine. No palpable step-offs. He is tender to palpation to the midline thoracolumbar region. Lower extremities are neurovascular intact bilaterally. Calves are soft nontender bilaterally. Negative logrolling bilaterally. Strength is 5/5 bilateral EHL, dorsiflexion, plantarflexion, quadriceps hamstrings. Constitutional: + cachectic, cooperative and comfortable Eyes: normal visual garcia by confrontation ENMT: external ear and nose normal, oropharynx normal Neck: trachea midline Respiratory: normal respiratory effort and able to speak in complete sentences Cardiovascular: Extremities: normal capillary refill Musculoskeletal: Spine: + pain with thoraco-lumbar ROM, + thoracic spinal tenderness and + lumbar spinal tenderness Extremities: strength 5/5 throughout Skin: no rashes, warm and dry Neurologic: patellar DTR's 2+ bilat, sensation intact Psychiatric: A+Ox3, euthymic affect Eye Contact: good eye contact Results & Data Diagnostic Findings Magnetic Resonance Report Patient: JERARDO PEREZ RAdmit Date: 09/12/18 MR#: [id number]: [address] Acct ID:[id number]: Date: 1970[facility] Zip: [place] [address] Age: 48Location: 4E Sex: M Room/Bed: [facility] Att Phy: Guevara Townsend, MDDiagnosis: NAUSEA, VOMITING, GASTROPARESIS Pascale Phy: Yoshi Reyes, DOService Date: 09/14/18 Fam Phy: Interpreting Phy: Jose Zaldivar MD Admit Phy: Justus Conti MD Ordering Phy: Antonina Gibson PA-C cc: ~ MR lumbar spine wo con CLINICAL HISTORY: 48 years-old Male presenting with fall last day in the shower, low back pain, now with nausea and vomiting, concern for spinal cord compression. TECHNIQUE: Multisequence, multiplanar MR imaging of the lumbar spine was performed without the use of intravenous contrast. IV contrast: None. COMPARISON: CT from 09/13/2018. FINDINGS: Localizer images: Diffuse body wall edema. Normal lumbar lordosis. Bony edema and mild anterior vertebral body height loss at T11 consistent with an acute compression fracture. Superior endplate concavity with mild to moderate anterior vertebral body height loss of T12 consistent with a compression deformity. There is no associated bony edema to suggest acuity of this injury. Lumbar vertebral bodies maintain normal height, alignment, and bone marrow signal intensity. Intervertebral discs normal. No evidence of spinal canal or neural foraminal narrowing. Spinal cord terminates in good position at the superior endplate of L1. Cauda equina normal in morphology allowing for mild degradation of image quality on axial T2-weighted imaging. No gross evidence of an epidural collection. Paraspinal muscle edema is evident though there is also more diffuse retroperitoneal and body wall edema. This is nonspecific. Remaining visualized soft tissues within normal limits. T2 flow voids within the vasculature preserved. IMPRESSION: 1. Acute mild compression fracture of T11. 2. Chronic appearing mild to moderate compression fracture of T12. 3. Normal lumbar spine. No spinal canal narrowing. No evidence of spinal cord compression cauda equina syndrome. 4. Volume overload is suggested by anasarca. Electronically signed
[2018-09-15] MEDS ORDERED: METOCLOPRAMIDE HCL 5 MG TABLET PO SCH (12:00)
--- NOTE | 2018-09-15 12:16 | Pharmacy Report ---
Pharmacy Glycemic Short Note 2 - Date of Service September 15, 2018 - Glycemic Short BSG Results (Last 24 hours): 09/14/18 09/14/18 09/14/18 11:54 16:45 17:48 Glucose 213 H POC Glucose 211 H 229 H 09/14/18 09/15/18 09/15/18 19:57 05:26 07:41 Glucose 67 L POC Glucose 228 H 101 H 09/15/18 11:32 Glucose POC Glucose 167 H OUTPATIENT ANTIDIABETIC REGIMEN: * A1c 8.4% (06/03/18) * Humalog via Medtronic 670G insulin pump with basal settings: 4200-4398 0.6 units/hr, 4466-9466 0.7 units/hr, 6773-3941 0.9 units/hr (19.9 units/24hrs) and bolus settings: 1:10 (7579-3452)/1:7 (6547-9606) plus SF: 35 with BG goal of 100-130 ASSESSMENT: * See progress note from 09/11/18 for more background info, in short: * Pt admitted with intractable nausea and vomiting. Diet advanced to clear liquids today. * Jorge Alberto received 19 units of insulin yesterday * 12 units of basal insulin * 7 units of prandial/correctional insulin * BSGs ranging 80 - 219 mg/dl over the past 24hrs * Changes needed to insulin regimen: * AM Fasting BSG = 101 mg/dl. This is at goal for patient based on inpatient targets and co-morbidities. * Post-prandial BSGs rewere above goal over the past 24 hours. I will tighten Novolog CF and CR. PLAN FOR INPATIENT GLYCEMIC CONTROL: * Basal insulin * Lantus 15 units SQ qAM * Bolus insulin - tighten * NovoLog per scale ACHS or Q6hrs while NPO * Lower Goal Range: Low 120 mg/dL - High 140 mg/dL * Correction Factor: 20 mg/dL/unit * Nutritional / Prandial insulin per carb ratio of 1 unit per 8 grams CHO consumed DISCHARGE RECOMMENDATIONS: * Resume humalog insulin pump at home settings on 09/16 at 8:00 AM * Jorge Alberto was given 15 units of Lantus this morning which will cover his basal insulin requirements until then * Patient will need to administer SQ Novolog with dinner and at bedtime (today only) * Meal coverage: 1 unit of Novolog for every 7 grams of carbohydrate * Sensitivity factor: 35 * CDE provided patient with written instructions for Novolog Thank you.
--- NOTE | 2018-09-15 16:12 | Discharge Summary ---
Date of Service September 15, 2018 Admission HPI Per Admitting Provider Patient is a 48 year old male with a past medical history of Type 1 diabetes with recurrent episodes of gastroparesis, hypertension, and CKD that presents with nausea and dry heaves in the setting of gastroparesis.. He was last seen by our service in August of this year for similar complaints of depression. At that time it was recommended that Valium be tapered in favor of a shorter acting medication for GI purposes, and that Remeron be discontinued due to sedation as well. The patient is currently on Zoloft 50 mg as prescribed by his PCP, Dr. Moreno. The patient feels unwell at the time of my interview. He is lying on his side with nausea and hanging over the garbage can. He is nonetheless cooperative with the interview. He admits to depression since he and his 3 years ago. He describes feeling lonely, "no attachments" to anything. He currently resides with his parents who are very supportive as he can no longer work due to his medical conditions. He denies that he has ever been suicidal but admits to depressed mood with impaired sleep both difficulty falling asleep as well as staying asleep. He will get 3 hours of broken sleep per night usually. He reports variable energy, "up and down". He endorses chronic anxiety "forever" but denies panic attacks. He denies ever having had any auditory or visual hallucinations, denies self-injurious behaviors, eating disorder behaviors or any symptoms that would be congruent with a bipolar disorder. He would like some adjustments to his medications to help improve his mood. Admission Exam Per Admitting Provider GENERAL: Awake, al ert, dry heaving H ENT: Normocephalic , atraumatic. Orop harynx unremarkabl e. EYES: Normal co njunctiva. Sclera non-icteric. NECK: Supple. RESPIRAT ORY: Clear to ausc ultation. CARDIAC: Regular rate, nor mal rhythm. ABDOM EN: Soft, non-dist ended. No tenderne ss to palpation. N o rebound or guard ing. RECTAL: Defe rred. MUSCULOSKELE RADHA: Chest examina tion reveals no te nderness. The back is symmetrical on inspection withou t obvious abnormal ity. There is no C VA tenderness to p alpation. Mild ten derness over L4 ve rtebrae secondary to fall last week. LOWER EXTREMITIES : Calves are equal size bilaterally and non-tender. No edema. No discolo ration. NEURO: No rmal sensorium. S KIN: No rash or ja undice noted. Principal Diagnosis Nausea/Vomiting, T11 Compression Fracture Discharge Exam General: Resting comfortably in no apparent distress; A&OX3 HEENT: NC/AT; PERRLA with EOMI; [place] conjunctiva, MMM. Neck: Supple and nontender Cardiac: RRR w/o murmurs, gallops or rubs Lungs: CTA bilaterally; No rhonchi, wheezing, or rales Abdomen: Bowel normoactive X 4; Nontender to palpation Back: No tenderness noted over lumbar spine. Extremities: Warm. No edema present Neuro: No focal weakness Skin: No rash Discharge Data Allergies Allergy/AdvReac Type Severity Reaction Status Date / Time shellfish derived Allergy Severe anaphylaxis Verified 09/10/18 20:39 codeine Allergy Intermediate Hives Verified 09/11/18 16:32 promethazine Allergy Intermediate itchy/hives Verified 09/10/18 20:39 Consultations 09/10/18 22:15 ED Decision to Admit Stat 09/12/18 13:07 Consult Psychiatry Routine 09/14/18 08:45 Consult Urology Routine 09/14/18 17:49 Consult Orthopedic Surgery Routine Ordered Studies 09/13/18 14:35 CT lumbar spine wo con Routine 09/14/18 14:38 MR lumbar spine wo con Routine Ribs/CXR/Thoracic Spine XR on 09/08/18 CXR 09/09/18 CXR/Abd XR 09/10/18 Lumbar Spine XR 09/12/18 Hospital Course (1) Intractable vomiting: Likely related to diabetic gastroparesis; has had frequent re-admissions for similar symptoms. Abd XR neg for obstruction. IV anti-emetics were initially ordered. He was strict NPO. Reglan 5 mg IV q6hr scheduled was ordered and N/V significantly improved. He was advanced to a CLD then FLD. He will f/u at [facility] on 09/16/18 for evaluation. N/V had resolved by time of discharge. (2) Lumbar spine pain: Developed lumbar spine pain following fall at home. L-spine XR was negative for acute findings. L-spine CT showed no acute fracture. L-spine MRI results as noted below -- has acute T11 compression fracture following fall at home. Lidocaine patch was ordered. Orthopedics consulted, recommended a TLSO brace at all times. Will need to follow up with ortho in 2 weeks. (3) Urinary retention: Significant urinary retention noted on CT A/P. Pt. can void if prompted to but does not have sensation to void. Urology consulted, recommended starting Flomax. He did not require straight cath during this admission. May be neurogenic bladder from diabetic neuropathy. . (4) Metabolic acidosis: Non anion gap, noted on labs this morning in setting of CKD. Sodium bicarb 650 mg BID ordered with improvement. He will continue this medication at home. Will need to f/u with nephrology in 2-3 weeks. Script for labs provided at discharge. (5) Anasarca: Noted on L-spine MRI; related to aggressive IV fluid hydration in setting of CKD. IV fluids were d/c'ed. (6) Type I diabetes mellitus: Most recent A1C was 8.4 in May 2018. Insulin pump was held during admissio n. Pharmacy consulted for management. Will resume insulin pump at discharge - was educated on management by community educator and pharmacist prior to discharge. (7) Hypertension: Continued home Amlodipine and Metoprolol as prescribed. BP was elevated -- home Hydralazine was held. Med was restarted on discharge at home dose of 25 mg TID. (8) CKD (chronic kidney disease) stage 4, GFR 15-29 ml/min: Baseline creatinine was 2-2.5, increased to 5.4 ~1 month ago. Creatinine trended down, is improving overall. Renally dosed all meds. (9) Anemia: Anemia of chronic disease in setting of CKD. (10) Depression: Psych consulted per patient request. Has multiple psychosocial stressors over last year. Increased Zoloft to 100 mg daily. Will need to follow up as outpatient. (11) Electrolyte abnormality: Replaced as needed. (12) DVT prophylaxis: SCDs. He was stable for discharge to home on 09/15/18. Total Time Total Time Spent Total Time Spent (In Minutes): >30 minutes Total Time Includes: Examination of the Patient, Discharge Planning, Medication Reconciliation, Communication With Other Providers and Other Discharge Plan Discharge Items Patient Disposition: Home - Home Health Services Reason For Visit: NAUSEA, VOMITING, GASTROPARESIS Discharge Diagnosis: Nausea/Vomiting, T11 Compression Fracture Condition: Fair Discharge Goals: Decrease discomfort, Diagnostic testing, Improve disease control, Improve function, Increase independence, Improve nutritional status and Prevent disease Activity: As commented below Activity Comment: Please wear TLSO brace at all times. Lifting: No more than 5 pounds Bathing Comment: May remove brace during showers. Exercise/Sports: As tolerated Non-emergency contact: Primary Care Provider Call non-emergency contact if: you have any medication questions, your symptoms worsen, your pain is not controlled, your pain is worsening, your pain is unusual for you, your pain is concerning for you and you have a fever Follow-up/Referrals: Yoshi Moreno, [Primary Care Provider] - Diet: Full liquid Diet Comment: Advance diet as tolerated. Other Ambulatory Orders: Basic Metabolic Panel (Routine) Timeframe: 7 Days Location: Determined by Patient Ordered By: Antonina Diggs Magnesium (Routine) Timeframe: 7 Days Location: Determined by Patient Ordered By: Antonina Diggs Phosphorus (Routine) Timeframe: 7 Days Location: Determined by Patient Ordered By: Antonina Diggs Addtl Provider Instructions: 1. Nausea/Vomiting in setting of diabetic gastroparesis * Please continue Reglan 5 mg every 6 hours scheduled. * Please advance diet very slowly at home following discharge. * Please follow up at [facility] as scheduled tomorrow. 2. Thoracic compression fracture * Please continue to wear a TLSO brace at all times -- you can remove brace when bathing. * Please schedule a follow up with orthopedics in 2 weeks -- you will need to call [phone] to schedule an appointment. * A prescription was sent to your pharmacy for Lidocaine patches; topical pain relief patches are also available over the counter. * Do not lift more than 5 pounds at home. 3. Urinary Retention * Please continue to attempt to void every 4-5 hours at home. * You will need to call your primary care provider if you develop urinary retention. * Please take Flomax 0.4 mg daily. 4. Type I Diabetes Mellitus * Please use short acting insulin this evening (you were provided with a Novolog pen at discharge). * Please resume insulin pump on 09/16/18 -- please follow directions provided by the community educator and pharmacist. * You will need to follow up with endocrinology as an outpatient. 5. Depression * Zoloft has been increased to 100 mg daily. * Please follow up with [facility] as scheduled. 6. Chronic Kidney Disease and Non-Anion Gap Metabolic Acidosis * Please continue sodium bicarbonate 650 mg twice daily. * A script was provided for lab work in 5-7 days to monitor your renal function and electrolytes. * Please schedule a follow up with nephrology in 2-3 weeks. 7. Please schedule a follow up appointment with your primary care provider in 1- 2 weeks to discuss this hospital admission. 8. Prescriptions for new medications were sent to your pharmacy. Prescriptions: New sertraline 100 mg Tablet 100 mg PO QAM 30 Days Qty: 30 RF: 0 tamsulosin 0.4 mg Capsule 0.4 mg PO HS 30 Days Qty: 30 RF: 0 metoclopramide HCl 5 mg Tablet 5 mg PO Q6 30 Days Qty: 120 RF: 0 sodium bicarbonate 650 mg tablet 650 mg PO BID Qty: 60 RF: 0 Continued metoprolol tartrate 25 mg Tablet 25 mg PO BID Qty: 60 RF: 0 atorvastatin 10 mg tablet 10 mg PO DAILY RF: 0 hydralazine 25 mg tablet 25 mg PO TID RF: 0 amlodipine 10 mg tablet 10 mg PO QAM RF: 0 furosemide 20 mg tablet 20 mg PO BID PRN (Reason: Fluid Retention) RF: 0 cholecalciferol (vitamin D3) [Vitamin D3] 2,000 unit capsule 2,000 units PO QAM RF: 0 Humalog U-100 Insulin 100 unit/mL Cartridge 1 sliding scale dose SUBCUT CONTINOUS RF: 0 Discontinued metoclopramide HCl [Reglan] 10 mg Tablet 10 mg PO QID PRN (Reason: Nausea) Qty: 6 RF: 0 ondansetron 4 mg tablet,disintegrating 4 mg PO Q8H PRN (Reason: nausea and vomiting) Qty: 10 RF: 0 sertraline 50 mg Tablet 50 mg PO QAM Qty: 30 RF: 0 Stand-Alone Forms: [facility] Discharge Orders: Discharge Order (Routine); Ordered 09/15/18 Ordered By: Antonina Diggs Admission Data Admit Date/Time: 09/12/18 15:50 Attending Provider: Guevara Townsend Admit Provider: Justus Conti Primary Care Provider: Yoshi Moreno Other Providers: Colton Guajardo ; Estefania Sutton ; Home,Nursing Agency ; Manny Goode ; Julian Vitale Service: Medical Other Interventions: Discharge Summary Assessment (RN) Last Done: 09/15/18 16:25 PSY Interdisciplinary Discharge Planning Last Done: 09/13/18 08:43 Pending Studies at Discharge: No DC Date/Time DO NOT enter until pt leaves facility: 09/15/18 17:08 Supervising Physician Co-Signing Physician Notes Attending Attestation - Pt seen/examined, chart reviewed, discharge care plan d/w CAROL Diggs. I agree w/ the julien components of her discharge summary. 48yo male with T1DM on insulin pump and CKD stage 4 presenting with intractable vomiting - presumably from gastroparesis - along with back pain 2nd to acute T11 compression fracture. Vomiting ultimately resolved with IV reglan. Back pain was treated conservatively with TLSO brace, pain meds, etc. Advised patient to obtain bone density scan in several weeks post-discharge. Creatinine at d/c was 3.8; peak Cr was 4.8 during this stay. Discharge exam: gen - NAD, thin mouth - MMM neck - no JVD heart - RRR, s1, s2 lungs - CTA b/l abd - soft, NT, ND, BS+ back - mild tenderness to palpation over t-spine lower segments ext - DPs 2+b/l, minimal edema Guevara Townsend MD
== END 2018-09-15 17:08 | disposition home health service (06) | DRG 74 ==
LOC: 4E 18:37 → ED 18:37 → SUATTDRO 09-11 00:18 → 4E 09-11 00:52 → SUATTDRO 09-12 15:50
DX: Z88.5 Allergy status to narcotic agent; F32.9 Major depressive disorder, single episode, unspecified; Z79.4 Long term (current) use of insulin; E10.22 Type 1 diabetes mellitus with diabetic chronic kidney disease; E10.40 Type 1 diabetes mellitus with diabetic neuropathy, unspecified; R11.10 Vomiting, unspecified; E10.43 Type 1 diabetes mellitus with diabetic autonomic (poly)neuropathy; Z88.8 Allergy status to other drugs, medicaments and biological substances; D63.1 Anemia in chronic kidney disease; N18.4 Chronic kidney disease, stage 4 (severe); S22.080A Wedge compression fracture of T11-T12 vertebra, initial encounter for closed fracture; W19.XXXA Unspecified fall, initial encounter

== ENCOUNTER 2018-10-20 22:34 | Inpatient (IN) ==
--- OUTSIDE RECORDS SUMMARY | 2018-10-20 22:36 | External Medical Summary | Continuity of Care Document ---
:1970 Author Name Alisa Ortega Address Unavailable Unavailable , Care Team Providers Name Role Phone Adam [email or web address] [place] PCP, UNKNOWN Unavailable Unavailable Problems Acute appendicitis (540.9) (K35.80) Abdominal pain (789.00) (R10.9) Gastroparesis (536.3) (K31.84) Insulin dependent diabetes mellitus (250.00) (E11.9) Allergies and Adverse Reactions Phenergan (Allergy) Shellfish (Allergy) Medications HumuLIN N 100 UNIT/ML Subcutaneous Suspe nsion; INJECT TWICE DAILY PER SLIDING SCALE. Start: 28-May-2016 Refills: 0 NovoLIN N 100 UNIT/ML Subcutaneous Suspe nsion; INJECT TWICE DAILY PER SLIDING SCALE. Start: 28-May-2016 Refills: 0 Reglan 5 MG Oral Tablet; TAKE 1 TABLET TWICE DAILY. Start: 28-May-2016 Refills: 0 Ondansetron HCl - 4 MG Oral Tablet; One tablet every 6 hours as needed for nausea Start: 28-May-2016 Quantity: 20 Refills: 0 Procedures History of Shoulder Surgery Status: Comp leted History of Renal Lithotripsy Status: Com pleted History of Laparoscopic Appendectomy Sta tus: Completed 18-May-2016 0:00 History of Hip Surgery Status: Completed Immunizations Immunizations not documented Plan of Treatment Planned Observations Planned Goals not documented Results No Known Results Results not documented
[2018-10-20 23:44] LABS: Basophils # (auto) 0.06 K/uL (0-0.2); Basophils % (auto) 0.5 %; Eosinophils # (auto) 0.05 K/uL (0-0.5); Eosinophils % (auto) 0.5 %; Hematocrit (blood only) 22.4 % (42-52); Hemoglobin 7.3 g/dL (14.0-18.0); Immature Granulocytes # (auto) 0.05 K/uL (0.00-0.02); Immature Granulocytes % (auto) 0.5 %; Lymphocytes # (auto) 0.93 K/uL (1.2-3.4); Lymphocytes % (auto) 8.4 %; Mean Corpuscular Hgb Conc 32.6 g/dL (32-36); Mean Corpuscular Volume 93.7 fL (80-100); Mean Platelet Volume 8.6 fL (7.4-10.4); Monocytes % (auto) 7.2 %; Neutrophils # (auto) 9.16 K/uL (1.4-6.5); Neutrophils % (auto) 82.9 %; Platelet Count 384 K/uL (130-400); RDW Standard Deviation 47.9 fL (36.4-46.3); Red Blood Count 2.39 M/uL (4.7-6.1); White Blood Count 11.05 K/uL (4.8-10.8)
[2018-10-20 23:48] LABS: Base Excess VBG -2.9 mEq/L; HCO3 VBG 22 mmol/L; Oxygen Saturation VBG 82.1 %; PCO2 VBG 39 mmHg (38-50); PO2 VBG 50 mmHg; pH VBG 7.37 (7.36-7.41)
[2018-10-20 23:54] LABS: Partial Thromboplastin Time 26.1 Seconds (21.0-31.0); Prothrombin Time 9.9 Seconds (9.0-12.0)
[2018-10-21 00:13] LABS: Albumin Level 2.8 gm/dl (3.4-5.0); BUN Creatinine Ratio 17.9 (10-20); Bilirubin,Total 0.2 mg/dl (0.2-1); Calcium 7.9 mg/dl (8.5-10.1); Est GFR (African American) 12.7; Magnesium 2.6 mg/dl (1.8-2.4); Potassium 5.3 mmol/L (3.5-5.1); Total Protein 6.3 gm/dl (6.4-8.2); Troponin I 0.021 ng/ml (0-0.045)
[2018-10-21 00:14] LABS: Bilirubin Direct 0.1 mg/dl (0-0.2)
[2018-10-21 00:19] LABS: RBC Morphology Unremarkable
[2018-10-21] MEDS ORDERED: SODIUM CHLORIDE 0.9% 250 ML IV PRN ×2 (00:22→10:37)
[2018-10-21] MEDS ORDERED: FUROSEMIDE 40 MG in SYRINGE 0 ML IV ONE (00:31)
[2018-10-21] MEDS ORDERED: INSULIN HUMAN REGULAR IV STA (00:31)
[2018-10-21] MEDS ORDERED: INSULIN HUMAN REGULAR PER UNIT 10 UNITS in SYRINGE 9.9 ML IV STA (00:49)
[2018-10-21 00:59] LABS: HCO3 ABG 23 mmol/L (19-24); Oxygen Saturation ABG 92.9 % (90-95); PCO2 ABG 39 mmHg (35-46); PO2 ABG 76 mm/Hg (80-95)
[2018-10-21 01:01] LABS: Allen Test Pos (Pos)
[2018-10-21] MEDS ORDERED: GLUCAGON FOR INJ 1 MG VIAL SQ PRN (03:17)
[2018-10-21] MEDS ORDERED: GLUCOSE 40% GEL 15 GM TUBE PO PRN (03:17)
[2018-10-21] MEDS ORDERED: ICU PROTOCOL FOR HYPERGLYCEMIA PRN (03:17)
[2018-10-21] MEDS ORDERED: GLUCOSE 10 TABS/TUBE PO PRN (03:17)
[2018-10-21] MEDS ORDERED: SODIUM CHLORIDE 0.9% 1000ML 1,000 ML IV SCH (03:17)
[2018-10-21] MEDS ORDERED: PHARMACY GLYCEMIC MGMT CONSULT PRN (03:24)
[2018-10-21] MEDS ORDERED: INSULIN REGULAR 250 UNITS in SODIUM CHLORIDE 0.9% 247.5 ML IV SCH (03:30)
[2018-10-21] MEDS ORDERED: NovoLIN-R BOLUS FROM BAG IV ONE (03:30)
--- NOTE | 2018-10-21 03:41 | History & Physical Report ---
Date of Service October 21, 2018 Assessment & Plan (1) Admitted to intensive care unit: Admission to the intensive care unit due to symptomatic anemia, acute renal failure, anasarca. Consult soldering machine operator automatic Dr. Ford. Present on Admission?: Yes (2) Acute renal failure: Creatinine was 5.63 upon admission. Patient has a known history of chronic kidney disease stage IV, and has had his creatinine previously up to a peak of 5.63, but has more recently been in the 3.85-3.99 range. Nephrology had discussions with him in the past regarding possible need for dialysis. With his combination of acute renal failure, anasarca, hypoxia, his etiology may be that of cardiorenal syndrome. We will order a complete echocardiogram to further assess. Consult nephrology. Present on Admission?: Yes (3) Anasarca: He was given Lasix 40 mg IV in the ED, and will assess further after above response. Present on Admission?: Yes (4) Hypoxia: As noted above. Present on Admission?: Yes (5) Anemia: Hemoglobin is decreased to 7.3, with recent hemoglobins being in the range of 8.3-9.2. May be multifactorial, associated with progressive anemia chronic disease, decreased oral intake, possible GI blood loss to be assessed. Patient is typed and screened, and his father signed blood consent. We will repeat hemoglobin serially, and transfuse as needed to maintain appropriate blood pressure and heart rate. Present on Admission?: Yes (6) Type I diabetes mellitus: His diabetes has been very brittle. His father reports his glucose was 45 yesterday while in the ED today is 536. He will undergo glycemic pharmacologic management while in the ICU. We will hold his usual diabetic medications. Present on Admission?: Yes (7) Hypertension: Will hold metoprolol tartrate 25 mg p.o. twice daily, hydralazine 25 mg p.o. 3 times daily and amlodipine 10 mg p.o. every morning, while patient is n.p.o., and until he becomes more alert. Will have available Lopressor 5 mg IV every 4 hours as needed systolic blood pre ssure greater than 160 Present on Admission?: Yes (8) Depression: Will hold sertraline 100 mg p.o. daily, until patient is more alert and no longer n.p.o. Present on Admission?: Yes History of Present Illness Chief Complaint: The patient is brought to emergency department by family, due to increasing confusion, decreasing energy level, increased need for sleep and decreased urine output. Primary Care Provider: Yoshi Reyes DO The patient is a 48-year-old male with a past medical history including acute kidney injury on chronic kidney disease stage IV, depression, gastroparesis, intractable vomiting, acid reflux, GERD, CHF, anemia who presents to the emergency department due to insistence of his father, due to above symptoms, and found to be in significant overall body edema, with worsening creatinine, worsening anemia, increasing blood sugar, and worsening liver enzymes. Allergies Allergy/AdvReac Type Severity Reaction Status Date / Time shellfish derived Allergy Severe anaphylaxis Verified 10/21/18 00:26 codeine Allergy Intermediate Hives Verified 10/21/18 00:26 promethazine Allergy Intermediate itchy/hives Verified 10/21/18 00:26 Home Medications Home Medications Medication Instructions Recorded Confirmed Type metoprolol tartrate 25 mg PO BID #60 tab 08/13/18 10/21/18 Rx Humalog U-100 Insulin 1 sliding scale dose SUBCUT CONT 09/10/18 10/21/18 History amlodipine 10 mg PO QAM 09/10/18 10/21/18 History atorvastatin 10 mg PO DAILY 09/10/18 10/21/18 History cholecalciferol (vitamin D3) 2,000 units PO QAM 09/10/18 10/21/18 History [Vitamin D3] furosemide 20 mg PO BID PRN 09/10/18 10/21/18 History hydralazine 25 mg PO TID 09/10/18 10/21/18 History sodium bicarbonate 650 mg PO BID #60 tab 09/15/18 10/21/18 Rx sertraline 100 mg PO DAILY 10/21/18 10/21/18 History Past Med/Surg History Medical History Acid reflux (Chronic) Hypertension (Chronic) Type I diabetes mellitus (Chronic) Gastroparesis due to DM (Chronic) Depression (Chronic) Anemia (Chronic) Diabetic nephropathy (Chronic) CKD stage 3 due to type 1 diabetes mellitus (Chronic) Anxiety (Chronic) Surgical History History of appendectomy (Resolved) H/O shoulder surgery (Resolved) History of hip surgery (Resolved) Family History Grandfather Myocardial infarction Social History Preferred Language: Lao Communication Ability: Effective Seismometer Operator Required: No Beliefs That Will Affect Care: None marital status: Legally Current Living Situation: Parent current occupational status: employed Other Information That Helps Us Care for You: No Feels Safe at Home: Yes Safety Concerns: Feels Safe At This Time Smoking Status: Never smoker Tobacco Type: smokeless tobacco Do You Dip or Chew Tobacco: No Second Hand Exposure: No Tobacco Cessation Education Requested by Patient: No Hx Alcohol Use: No Hx Substance Use: No Review of Systems Review of Systems: Review of systems is very limited due to patient's debbie rgy, is primarily provided by his father was in attendance. Physical Exam Physical Exam: The patient is intermittently awake, but lethargic, normocephalic and atraumatic, lying in bed and in no acute distress. HEENT--PERRL, EOMI, mucous membranes and oropharynx dry. Neck--supple. No JVD. No bruits. Thyroid normal, trachea midline, no adenopathy. Heart--normal S1 and S2. No murmurs, rubs or gallops. Lungs--clear bilaterally, no respiratory distress, no accessory muscle use. Abdomen--normal bowel sounds and soft. Nontender. Nondistended, no hernias or masses, no organomegaly. Extremities--no cyanosis or clubbing. bilateral pretibial pitting upper and lower extremity edema. Dermatologic--normal skin turgor, normal color, no abnormal lymph nodes, no rash. Neurologic--cranial nerves II through XII grossly intact. Limited exam Rheumatologic--limited exam Psychiatric--lethargic Results & Data Vital Signs (Past 12 Hours) Vital Signs Temp Pulse Pulse Resp BP BP Pulse Ox 10/21/18 03:14 98.2 F 87 16 147/84 H 95 10/21/18 03:08 98.2 F 90 14 147/85 H 91 10/21/18 02:15 87 18 150/94 H 93 10/21/18 02:02 59 L 16 118/88 100 10/21/18 01:09 82 16 157/81 H 98 10/21/18 00:34 87 18 172/87 H 10/20/18 22:41 98.6 F 91 H 18 148/72 H 91 Laboratory Results Laboratory Results WBC 11.05 K/uL (4.8-10.8) H 10/20/18 23:29 RBC 2.39 M/uL (4.7-6.1) L 10/20/18 23:29 Hgb 7.3 g/dL (14.0-18.0) L 10/20/18 23:29 Hct 22.4 % (42-52) L 10/20/18 23: MCV 93.7 fL (80-100) 10/20/18 23: MCH 30.5 pg (25-34) 10/20/18 23: MCHC 32.6 g/dL (32-36) 10/20/18 23: RDW Std Deviation 47.9 fL (36.4-46.3) H 10/20/18 23: RDW Coeff of Kami 14.0 % (11.5-14.5) 10/20/18: Plt Count 384 K/uL (130-400) 10/20/18 23: MPV 8.6 fL (7.4-10.4) 10/20/18 23: Immature Gran % (Auto) 0.5 % 10/20/18 23: Neut % (Auto) 82.9 % 10/20/18 23: Lymph % (Auto) 8.4 % 10/20/18 23: Chambers % (Auto) 7.2 % 10/20/18 23: Eos % (Auto) 0.5 % 10/20/18 23: Baso % (Auto) 0.5 % 10/20/18 23: Immature Gran # (Auto) 0.05 K/uL (0.00-0.02) H 10/20/18 23: Neut # (Auto) 9.16 K/uL (1.4-6.5) H 10/20/18 23: Lymph # (Auto) 0.93 K/uL (1.2-3.4) L 10/20/18 23: Chambers # (Auto) 0.80 K/uL (0.11-0.59) H 10/20/18 23:29 Eos # (Auto) 0.05 K/uL (0-0.5) 10/20/18 23: Baso # (Auto) 0.06 K/uL (0-0.2) 10/20/18 23: RBC Morphology Unremarkable 10/20/18 23: PT 9.9 Seconds (9.0-12.0) 10/20/18: INR 1.0 (0.9-1.1) 10/20/18: APTT 26.1 Seconds (21.0-31.0) 10/20/18: PTT Ratio 1.0 10/20/18: ABG pH 7.40 (7.35-7.45) 10/21/18 00:49 ABG pCO2 39 mmHg (35-46) 10/21/18 00:49 ABG pO2 76 mm/Hg (80-95) L 10/21/18 00:49 ABG HCO3 23 mmol/L (19-24) 10/21/18 00:49 ABG O2 Saturation 92.9 % (90-95) 10/21/18 00:49 ABG Base Excess -1.2 mEq/L (-9-1.8) 10/21/18 00:49 Pos (Pos) 10/21/18 00:49 VBG pH 7.37 (7.36-7.41) 10/20/18 23:29 VBG pCO2 39 mmHg (38-50) 10/20/18 23:29 VBG pO2 50 mmHg 10/20/18 23: VBG HCO3 22 mmol/L 10/20/18 23:29 VBG O2 Saturation 82.1 % 10/20/18 23:29 VBG Base Excess -2.9 mEq/L 10/20/18 23:29 Oxygen Given 4L 10/21/18 00:49 Sodium 132 mmol/L (136-145) L 10/20/18: Potassium 5.3 mmol/L (3.5-5.1) H 10/20/18 23: Chloride 97 mmol/L (98-107) L 10/20/18 23: Carbon Dioxide 22 mmol/L (21-32) 10/20/18 23: 13.0 (3-11) H 10/20/18 23:29 BUN 101 mg/dl (7-18) H 10/20/18 23:29 5.63 mg/dl (0.6-1.4) H* 10/20/18 23:29 Est Cr Clr Drug Dosing 16.0 ml/min 10/20/18 23:29 Est GFR ( Amer) 12.7 10/20/18 23: Est GFR (Non-Af Amer) 11.0 10/20/18 23:29 17.9 (10-20) 10/20/18 23:29 Glucose 536 mg/dl (70-99) H* 10/20/18 23: POC Glucose 336 (70-99) H* 10/21/18 03:16 0.8 mmol/L (0.4-2.0) 10/20/18 23:46 Calcium 7.9 mg/dl (8.5-10.1) L 10/20/18: Magnesium 2.6 mg/dl (1.8-2.4) H 10/20/18 23:29 0.2 mg/dl (0.2-1) 10/20/18 23:29 0.1 mg/dl (0-0.2) 10/20/18 23:29 AST 106 U/L (15-37) H 10/20/18 23:29 ALT 97 U/L (12-78) H 10/20/18 23:29 157 U/L (45-117) H 10/20/18 23:29 0.021 ng/ml (0-0.045) 10/20/18 23: NT-Pro-B Natriuret Pep 15812 pg/ml (0-450) H 10/20/18 23:29 6.3 gm/dl (6.4-8.2) L 10/20/18 23:29 2.8 gm/dl (3.4-5.0) L 10/20/18 23:29 761 U/L (73-393) H 10/20/18 23:29 Beta-Hydroxybutyric Acd mg/dl (0.2-2.81) 10/20/18 23:29 Specimen Hemolysis 10/20/18 23: Blood Type B Negative 10/21/18 00:49 Antibody Screen NEGATIVE 10/21/18 00:49 Crossmatch See Detail 10/21/18 00:49 Code Status & VTE Plan Code Status Full code VTE Prophylaxis Plan VTE Prophylaxis will be ordered: Yes Critical Care Time Critical Care Time: Yes Total Critical Care Time: 45 Prolonged Care Time Prolonged Care Time: No Total Time: Total critical care time was 45 minutes. (1) Acute renal failure Acute renal failure type: unspecified Qualified Code(s): N17.9 - Acute kidney failure, unspecified (2) Anemia Anemia type: unspecified type Qualified Code(s): D64.9 - Anemia, unspecified
[2018-10-21 05:10] LABS: Partial Thromboplastin Ratio 0.9; Partial Thromboplastin Time 25.5 Seconds (21.0-31.0); Prothrombin Time 10.3 Seconds (9.0-12.0)
--- NOTE | 2018-10-21 05:14 | Emergency Department Note ---
Entered by Ayden Hamilton acting as a scribe for Cuong Burrows MD ED Provider Note Name: Jorge Alberto De Los Santos Age: 48 Arrives Via: triage Informant: self CC: Constant elevated sugars HPI: 48 y/o male arrives for evaluation of a constant elevation in his blood sugar levels beginning this afternoon. The patient states he has also been experiencing fluid building up on his legs the past few days. He reports he is a diabetic and has been for 16 years. The patient notes he has an insulin pump, and he replaced the cartridge today. He states his sugars have been over 600, and nothing makes it better or worse. The patient reports he has a history of fluid building up on his lungs but not in his legs, and it has been attributed to his renal insufficiency. He notes he has been on Lasix for the past 5 days and has been producing a fair amount of urine the past few days. The patient states he is also experiencing some mild abdominal swelling with intermittent shortness of breath. He reports he was recently hospitalized for a recent broken back at [facility]. The patient notes he has been taking Tylenol and using Lidocaine patches for his pain. He denies fevers, current SOB, LOC, chest pain, urinary burning, a history of heart failure, abdominal pain, runny nose, black stool, blood in his stools, headache, neck pain, and bruising easily. The patient also denies a history of: heart failure, liver trouble, smoking, using drugs, and using alcohol. ROS: See above HPI for pertinent positives & negatives. A total of 10 systems reviewed and were otherwise negative. Past Medical History: GERD, HTN, DM, depression, CKD, anxiety Past Surgical History: appendectomy Family History: [place] Social History: Lives with family Home Medications: Lasix, Tylenol, Lidocaine Allergies Shellfish, codeine, promethazine Physical: Vitals: BP 148/72, Pulse 91, Resp 18, Temp 98.6 F, O2 Sat 91 Exam: GENERAL: Patient is weak and pale appearing and in mild distress. EYES: No scleral icterus, unremarkable pupils. ENT: Mucous membranes moist, no nasal congestion. NECK: No masses appreciated, no meningismus, trachea is midline. RESPIRATORY: Diminished breath sounds in the left lung field, crackles through the right lung field. CARDIOVASCULAR: Regular rate and rhythm. No murmurs, rubs, gallops appreciated. GASTROINTESTINAL: Abdomen soft, non-tender, no peritonitis. Bowel sounds positive. No masses appreciated. BACK: No midline tenderness, no CVA tenderness EXTREMITIES: Normal motion all extremities, no cyanosis, 3+ pitting edema in bilateral lower legs. NEUROLOGIC: Alert and oriented, no acute motor or sensory deficits, no focal weakness, cranial nerves grossly intact. SKIN: No rash, no jaundice, no diaphoresis. ED Course: Prior Medical Record, Triage/Nursing Notes, Medications, Allergies reviewed by Me Vital Signs: reviewed and remarkable for hypoxia Labs: Reviewed and remarkable for anemia, hyperglycemia, hyperkalemia, renal failure, bnp elevation amongst others Interventions: Saline Lock, Lasix 40mg IV, Insulin 10U IV Imaging: X ray results are stated below per my interpretation: Chest: 1 view: LLL effusion/infiltrate with moderate congestive failure. Acute change from CXR. EKG: Per My interpretation: Indication Weakness: NSR 89 bpm RBBB no ectopy no ischemia. Similar to previous. Consults: Dr Ford of [facility] and Dr Guajardo Hospitalist Reassessments/Times: 2303: The patient was evaluated in room A04B. A complete history and physical exam was performed. 2340: I re-evaluated the patient and he is breathing more comfortably on oxygen. 0023: I discussed with Dr. Guajardo, [facility] hospitalist, he states that the patient needs an ABG. 0025: I discussed the patients case with Dr. Ford, trim setter. He recommends giving the patient IV insulin and IV Lasix. 0041: I spoke again with Dr. Guajardo and he will evaluate the patient for further management. Blood pressure: Normal. No Referral necessary Disposition: Hospitalization Differentials: Dehydration, stroke, anemia, hypoglycemia, hyponatremia, hypernatremia, urinary tract infection, pneumonia, bronchitis, sepsis, gastroenteritis, additional abdominal pathology, metabolic abnormalities and infections amongst other pathologies. Medical Decision Makin yr old male arrives for evaluation of hyperglycemia. He is clearly quiet weak on exam on when walking in to room he was initially sleeping and sating 56% on RA. Woke up and talking sats to 70s then sat up and placed on NC O2 with sats in 90s. CHF by exam. CXR consistent with congestive failure along with left lower effusion. Can't rule out infiltrate though without fever nor wbc elevation seems more likely fluid related. Labs reveal acute on chronic renal failure, anemia, elevated bnp, elevated K, hyperglycemia. Suspect much of this is due to acute on chronic CHF and low flow state to kidneys. As for Hype rglycemia he notes that he is concerned the pump is not working. He has essentially normal vbg, lactate and no bicarb drop thus I do not feel this is DKA. Reviewed case with CCM who feel treating CHF indicated with Lasix. Patient and father aware risks that this may further worsen renal function, leading to need for dialysis. Will hold on transfusion as this would place him in further chf and if we can get some fluid off him he may bump his hgb. Denies bloody stools. HyperK without EKG t wave peaking thus will stick to insulin and lasix for temp treatment of this. CCM will evaluate with US the left lung and possibility of fluid and if drainable. Multiple repeat evaluations over the s emely in ED. Impression: Hyperglycemia Congestive heart failure Hypoxia Hyperkalemia Acute renal failure Anemia Cuong Burrows MD The scribe's documentation has been prepared under my direction and personally reviewed by me in its entirety. I confirm that the note above accurately reflects all work, treatment, procedures, and medical decision making performed by me. Impression & Plan Acute hyperglycemia, Anemia, CHF (congestive heart failure), Hypoxia, Hyperkalemia, Acute renal failure Past Med/Surg History Medical History Acid reflux (Chronic) Hypertension (Chronic) Type I diabetes mellitus (Chronic) Gastroparesis due to DM (Chronic) Depression (Chronic) Anemia (Chronic) Diabetic nephropathy (Chronic) CKD stage 3 due to type 1 diabetes mellitus (Chronic) Anxiety (Chronic) Surgical History History of appendectomy (Resolved) H/O shoulder surgery (Resolved) History of hip surgery (Resolved) Family History Grandfather Myocardial infarction Social History Preferred Language: Fijian Communication Ability: Effective [employer] Supervisor Required: No Beliefs That Will Affect Care: None marital status: Legally Current Living Situation: Parent current occupational status: employed Other Information That Helps Us Care for You: No Feels Safe at Home: Yes Safety Concerns: Feels Safe At This Time Smoking Status: Never smoker Tobacco Type: smokeless tobacco Do You Dip or Chew Tobacco: No Second Hand Exposure: No Tobacco Cessation Education Requested by Patient: No Hx Alcohol Use: No Hx Substance Use: No Results & Data Vital Signs Vital Signs - 24 hr 10/20/18 22:41 10/20/18 23:21 10/20/18 23:53 Temperature 37 C Temperature Source Oral Sepsis Recent Fever Within 48 Hours No Sepsis New/Unexplained Change in Mental Status No Sepsis Action Taken by Nursing No Action Required Pulse Rate 91 H 90 88 Pulse Rate [Apical] Pulse Rate from SpO2 Sensor 91 H 88 Pulse Rhythm [Apical] Pulse Strength [Apical] Respiratory Rate 18 12 20 Respiratory Effort / Characteristics Respiratory Depth Blood Pressure 148/72 H 172/87 H Blood Pressure [Left Arm] Blood Pressure Mean 97 115 Blood Pressure Mean [Left Arm] Blood Pressure Position [Left Arm] Pulse Oximetry 91 96 92 Oxygen Delivery Method Oxygen Flow Rate 10/21/18 00:00 10/21/18 00:34 10/21/18 00:54 Temperature Temperature Source Sepsis Recent Fever Within 48 Hours Sepsis New/Unexplained Change in Mental Status Sepsis Action Taken by Nursing Pulse Rate 88 86 Pulse Rate [Apical] 87 Pulse Rate from SpO2 Sensor 85 Pulse Rhythm [Apical] Regular Pulse Strength [Apical] Normal Respiratory Rate 16 18 15 Respiratory Effort / Characteristics Respiratory Depth Shallow Blood Pressure 159/90 H Blood Pressure [Left Arm] 172/87 H Blood Pressure Mean 113 Blood Pressure Mean [Left Arm] 115 Blood Pressure Position [Left Arm] Sitting Pulse Oximetry 95 Oxygen Delivery Method Nasal Cannula Oxygen Flow Rate 3.5 10/21/18 01:01 10/21/18 01:09 10/21/18 01:31 Temperature Temperature Source Sepsis Recent Fever Within 48 Hours Sepsis New/Unexplained Change in Mental Status Sepsis Action Taken by Nursing Pulse Rate 85 85 Pulse Rate [Apical] 82 Pulse Rate from SpO2 Sensor 86 86 Pulse Rhythm [Apical] Regular Pulse Strength [Apical] Normal Respiratory Rate 16 16 14 Respiratory Effort / Characteristics Non-Labored Spontaneous Respiratory Depth Shallow Blood Pressure 157/81 H 166/83 H Blood Pressure [Left Arm] 157/81 H Blood Pressure Mean 106 110 Blood Pressure Mean [Left Arm] 106 Blood Pressure Position [Left Arm] Sitting Pulse Oximetry 94 98 95 Oxygen Delivery Method Nasal Cannula Oxygen Flow Rate 4 Home Medications Current Medication List: was personally reviewed by me Laboratory Data Attestation: I reviewed the patient's lab results. Result diagrams: 10/20/18 23:29 10/20/18 23:29 Lab Results 10/20/18 10/20/18 10/20/18 Range/Units 23:29 23:29 23:29 WBC 11.05 H (4.8-10.8) K/uL RBC 2.39 L (4.7-6.1) M/uL Hgb 7.3 L (14.0-18.0) g/dL Hct 22.4 L (42-52) % MCV 93.7 (80-100) fL MCH 30.5 (25-34) pg MCHC 32.6 (32-36) g/dL RDW Std Deviation 47.9 H (36.4-46.3) fL RDW Coeff of Kami 14.0 (11.5-14.5) % Plt Count 384 (130-400) K/uL MPV 8.6 (7.4-10.4) fL Immature Gran % (Auto) 0.5 % Neut % (Auto) 82.9 % Lymph % (Auto) 8.4 % Bell % (Auto) 7.2 % Eos % (Auto) 0.5 % Baso % (Auto) 0.5 % Immature Gran # (Auto) 0.05 H (0.00-0.02) K/uL Neut # (Auto) 9.16 H (1.4-6.5) K/uL Lymph # (Auto) 0.93 L (1.2-3.4) K/uL Bell # (Auto) 0.80 H (0.11-0.59) K/uL Eos # (Auto) 0.05 (0-0.5) K/uL Baso # (Auto) 0.06 (0-0.2) K/uL RBC Morphology Unremarkable PT 9.9 (9.0-12.0) Seconds INR 1.0 (0.9-1.1) APTT 26.1 (21.0-31.0) Seconds PTT Ratio 1.0 ABG pH (7.35-7.45) ABG pCO2 (35-46) mmHg ABG pO2 (80-95) mm/Hg ABG HCO3 (19-24) mmol/L ABG O2 Saturation (90-95) % ABG Base Excess (-9-1.8) mEq/L Eder Test (Pos) VBG pH (7.36-7.41) VBG pCO2 (38-50) mmHg VBG pO2 mmHg VBG HCO3 mmol/L VBG O2 Saturation % VBG Base Excess mEq/L Oxygen Given Sodium 132 L (136-145) mmol/L Potassium 5.3 H (3.5-5.1) mmol/L Chloride 97 L (98-107) mmol/L Carbon Dioxide 22 (21-32) mmol/L Anion Gap 13.0 H (3-11) BUN 101 H (7-18) mg/dl Creatinine 5.63 H* (0.6-1.4) mg/dl Est Cr Clr Drug Dosing 16.0 ml/min Est GFR ( Amer) 12.7 Est GFR (Non-Af Amer) 11.0 BUN/Creatinine Ratio 17.9 (10-20) Glucose 536 H* (70-99) mg/dl POC Glucose (70-99) Lactate (0.4-2.0) mmol/L Calcium 7.9 L (8.5-10.1) mg/dl Magnesium 2.6 H (1.8-2.4) mg/dl Total Bilirubin 0.2 (0.2-1) mg/dl Direct Bilirubin 0.1 (0-0.2) mg/dl AST 106 H (15-37) U/L ALT 97 H (12-78) U/L Alkaline Phosphatase 157 H (45-117) U/L Troponin I 0.021 (0-0.045) ng/ml NT-Pro-B Natriuret Pep 71767 H (0-450) pg/ml Total Protein 6.3 L (6.4-8.2) gm/dl Albumin 2.8 L (3.4-5.0) gm/dl Lipase 761 H (73-393) U/L Beta-Hydroxybutyric Acd (0.2-2.81) mg/dl Specimen Hemolysis Blood Type Antibody Screen Crossmatch 10/20/18 10/20/18 10/20/18 Range/Units 23:29 23:45 23:46 WBC (4.8-10.8) K/uL RBC (4.7-6.1) M/uL Hgb (14.0-18.0) g/dL Hct (42-52) % MCV (80-100) fL MCH (25-34) pg MCHC (32-36) g/dL RDW Std Deviation (36.4-46.3) fL RDW Coeff of Kami (11.5-14.5) % Plt Count (130-400) K/uL MPV (7.4-10.4) fL Immature Gran % (Auto) % Neut % (Auto) % Lymph % (Auto) % Bell % (Auto) % Eos % (Auto) % Baso % (Auto) % Immature Gran # (Auto) (0.00-0.02) K/uL Neut # (Auto) (1.4-6.5) K/uL Lymph # (Auto) (1.2-3.4) K/uL Bell # (Auto) (0.11-0.59) K/uL Eos # (Auto) (0-0.5) K/uL Baso # (Auto) (0-0.2) K/uL RBC Morphology PT (9.0-12.0) Seconds INR (0.9-1.1) APTT (21.0-31.0) Seconds PTT Ratio ABG pH (7.35-7.45) ABG pCO2 (35-46) mmHg ABG pO2 (80-95) mm/Hg ABG HCO3 (19-24) mmol/L ABG O2 Saturation (90-95) % ABG Base Excess (-9-1.8) mEq/L Eder Test (Pos) VBG pH 7.37 (7.36-7.41) VBG pCO2 39 (38-50) mmHg VBG pO2 50 mmHg VBG HCO3 22 mmol/L VBG O2 Saturation 82.1 % VBG Base Excess -2.9 mEq/L Oxygen Given Sodium (136-145) mmol/L Potassium (3.5-5.1) mmol/L Chloride (98-107) mmol/L Carbon Dioxide (21-32) mmol/L Anion Gap (3-11) BUN (7-18) mg/dl Creatinine (0.6-1.4) mg/dl Est Cr Clr Drug Dosing ml/min Est GFR ( Amer) Est GFR (Non-Af Amer) BUN/Creatinine Ratio (10-20) Glucose (70-99) mg/dl POC Glucose 552 H* (70-99) Lactate 0.8 (0.4-2.0) mmol/L Calcium (8.5-10.1) mg/dl Magnesium (1.8-2.4) mg/dl Total Bilirubin (0.2-1) mg/dl Direct Bilirubin (0-0.2) mg/dl AST (15-37) U/L ALT (12-78) U/L Alkaline Phosphatase (45-117) U/L Troponin I (0-0.045) ng/ml NT-Pro-B Natriuret Pep (0-450) pg/ml Total Protein (6.4-8.2) gm/dl Albumin (3.4-5.0) gm/dl Lipase (73-393) U/L Beta-Hydroxybutyric Acd (0.2-2.81) mg/dl Specimen Hemolysis Blood Type Antibody Screen Crossmatch 10/21/18 10/21/18 Range/Units 00:49 00:49 WBC (4.8-10.8) K/uL RBC (4.7-6.1) M/uL Hgb (14.0-18.0) g/dL Hct (42-52) % MCV (80-100) fL MCH (25-34) pg MCHC (32-36) g/dL RDW Std Deviation (36.4-46.3) fL RDW Coeff of Kami (11.5-14.5) % Plt Count (130-400) K/uL MPV (7.4-10.4) fL Immature Gran % (Auto) % Neut % (Auto) % Lymph % (Auto) % Bell % (Auto) % Eos % (Auto) % Baso % (Auto) % Immature Gran # (Auto) (0.00-0.02) K/uL Neut # (Auto) (1.4-6.5) K/uL Lymph # (Auto) (1.2-3.4) K/uL Bell # (Auto) (0.11-0.59) K/uL Eos # (Auto) (0-0.5) K/uL Baso # (Auto) (0-0.2) K/uL RBC Morphology PT (9.0-12.0) Seconds INR (0.9-1.1) APTT (21.0-31.0) Seconds PTT Ratio ABG pH 7.40 (7.35-7.45) ABG pCO2 39 (35-46) mmHg ABG pO2 76 L (80-95) mm/Hg ABG HCO3 23 (19-24) mmol/L ABG O2 Saturation 92.9 (90-95) % ABG Base Excess -1.2 (-9-1.8) mEq/L Eder Test Pos (Pos) VBG pH (7.36-7.41) VBG pCO2 (38-50) mmHg VBG pO2 mmHg VBG HCO3 mmol/L VBG O2 Saturation % VBG Base Excess mEq/L Oxygen Given 4L Sodium (136-145) mmol/L Potassium (3.5-5.1) mmol/L Chloride (98-107) mmol/L Carbon Dioxide (21-32) mmol/L Anion Gap (3-11) BUN (7-18) mg/dl Creatinine (0.6-1.4) mg/dl Est Cr Clr Drug Dosing ml/min Est GFR ( Amer) Est GFR (Non-Af Amer) BUN/Creatinine Ratio (10-20) Glucose (70-99) mg/dl POC Glucose (70-99) Lactate (0.4-2.0) mmol/L Calcium (8.5-10.1) mg/dl Magnesium (1.8-2.4) mg/dl Total Bilirubin (0.2-1) mg/dl Direct Bilirubin (0-0.2) mg/dl AST (15-37) U/L ALT (12-78) U/L Alkaline Phosphatase (45-117) U/L Troponin I (0-0.045) ng/ml NT-Pro-B Natriuret Pep (0-450) pg/ml Total Protein (6.4-8.2) gm/dl Albumin (3.4-5.0) gm/dl Lipase (73-393) U/L Beta-Hydroxybutyric Acd (0.2-2.81) mg/dl Specimen Hemolysis Blood Type B Negative Antibody Screen NEGATIVE Crossmatch See Detail Administered Medications Insulin Human Regular 250 (units/ Sodium Chloride) 250 mls @ 2.8 mls/hr IV .Q24H JACKI; Protocol Stop: 11/20/18 03:29 Last Admin: 10/21/18 03:47 Dose: 2.8 units/hr, 2.8 mls/hr Documented by: [id number] Cosigned by: [id number] Discontinued Medications Sodium Chloride (Nss) 250 mls @ 15 mls/hr IV .[id number] PRN PRN Reason: For Transfusion Stop: 11/20/18 00:21 Last Infusion: 10/21/18 03:18 Dose: 0 mls/hr Documented by: [id number] Admin: 10/21/18 01:01 Dose: 15 mls/hr Documented by: [id number] Furosemide 40 mg/ Syringe 4 mls @ 4 mls/min IV ONE ONE Stop: 10/21/18 00:32 Last Admin: 10/21/18 01:00 Dose: 4 mls/min Documented by: [id number] Insulin Human Regular 10 units (/ Syringe) 10 mls @ 30 mls/min IV NOW STA Stop: 10/21/18 00:50 Last Admin: 10/21/18 01:00 Dose: 30 mls/min Documented by: [id number] Cosigned by: [id number] Sodium Chloride (Nss 1000ml) 1,000 mls @ 100 mls/hr IV .Q10H JACKI Stop: 11/20/18 03:16 Last Admin: 10/21/18 04:17 Dose: Not Given Documented by: [id number] Insulin Human Regular (Novolin R Bolus From Bag) 3 units IV ONE ONE Stop: 10/21/18 03:31 Last Admin: 10/21/18 03:48 Dose: 3 units Documented by: [id number] Cosigned by: [id number] Blood Pressure Blood Pressure Findings: Elevated blood pressure Blood Pressure Disposition: further management by hospitalist Discharge Plan Visit Data *Final* Discharge Date/Time: 10/21/18 03:14 Chief Complaint: Hyperglycemia Stated Complaint: HIGH SUGAR; +600, FILLING UP WITH FLUID ED Provider: Cuong Burrows Discharge Problem: Acute hyperglycemia, Anemia, CHF (congestive heart failure), Hypoxia, Hyperkalemia, Acute renal failure Patient Disposition: Admitted As Inpatient Discharge Instructions Interventions: ED Discharge Assessment Last Done: 10/21/18 03:14 Discharge Problem: Anemia Qualifiers: Anemia type: unspecified type Qualified Code(s): D64.9 - Anemia, unspecified CHF (congestive heart failure) Qualifiers: Heart failure type: unspecified Heart failure chronicity: acute Qualified Code(s): I50.9 - Heart failure, unspecified Acute renal failure Qualifiers: Acute renal failure type: unspecified Qualified Code(s): N17.9 - Acute kidney failure, unspecified The scribe's documentation has been prepared under my direction and personally reviewed by me in its entirety. I confirm that the note above accurately reflects all work, treatment, procedures, and medical decision making performed by me.
[2018-10-21 05:16] LABS: Alanine Aminotransferase 79 U/L (12-78); Albumin Level 2.7 gm/dl (3.4-5.0); Alkaline Phosphatase 135 U/L (45-117); Aspartate Aminotransferase 59 U/L (15-37); Bilirubin Direct < 0.1 mg/dl (0-0.2); Bilirubin,Total 0.2 mg/dl (0.2-1); Blood Urea Nitrogen 103 mg/dl (7-18); Calcium 7.7 mg/dl (8.5-10.1); Carbon Dioxide 25 mmol/L (21-32); Chloride 100 mmol/L (98-107); Creatinine Clr Calc Pharmacy 15.7 ml/min; Est GFR (African American) 12.4; Est GFR (Non-African American) 10.7; Glucose 228 mg/dl (70-99); Magnesium 2.7 mg/dl (1.8-2.4); Potassium 4.5 mmol/L (3.5-5.1); Sodium 134 mmol/L (136-145); Total Protein 6.1 gm/dl (6.4-8.2)
[2018-10-21 05:25] LABS: Hematocrit (blood only) 21.2 % (42-52); Mean Corpuscular Volume 91.4 fL (80-100); Mean Platelet Volume 7.8 fL (7.4-10.4); Platelet Count 303 K/uL (130-400); RDW Coefficient of Variation 13.7 % (11.5-14.5); RDW Standard Deviation 44.6 fL (36.4-46.3); Red Blood Count 2.32 M/uL (4.7-6.1); White Blood Count 9.49 K/uL (4.8-10.8)
[2018-10-21 06:01] LABS: Basophilic Stippling Occasional; Basophils # (auto) 0.05 K/uL (0-0.2); Basophils % (auto) 0.5 %; Eosinophils # (auto) 0.06 K/uL (0-0.5); Eosinophils % (auto) 0.6 %; Immature Granulocytes # (auto) 0.05 K/uL (0.00-0.02); Immature Granulocytes % (auto) 0.5 %; Lymphocytes # (auto) 1.31 K/uL (1.2-3.4); Lymphocytes % (auto) 13.8 %; Monocytes # (auto) 1.44 K/uL (0.11-0.59); Monocytes % (auto) 15.2 %; Neutrophils # (auto) 6.58 K/uL (1.4-6.5); Neutrophils % (auto) 69.4 %; Schistocytes Occasional
--- NOTE | 2018-10-21 06:52 | XRay Report ---
XR chest 1V portable CLINICAL HISTORY: 48 years-old Male presenting with Hypoxia. TECHNIQUE: Portable upright AP view of the chest was obtained. COMPARISON: 09/10/2018. FINDINGS: Cardiac silhouette moderately enlarged. Double density along the right retrocardiac region may sugges t the presence of right atrial enlargement. Moderate left pleural effusion and poor aeration of the l eft lower lobe new from prior exam. Right lung and pleural space clear. Osseous structures normal. Up per abdomen normal. IMPRESSION: 1. Moderate left pleural effusion and extensive left basilar consolidation, likely atelectasis. Unde rlying infection cannot be excluded. 2. Cardiomegaly. No jahaira pulmonary edema. Electronically signed by: Jose Zaldivar M.D. 10/21/2018 6:51 AM
[2018-10-21 06:54] LABS: Appearance Urine Clear (Clear); Bacteria Urine Automated Negative (Negative); Bilirubin Urine Negative (Negative); Blood Urine Negative (Negative); Color Urine Yellow; Epithelial Cell Urine Auto >30 /lpf (0-5); Glucose Urine UA 3+ (Negative); Ketones Urine Negative (Negative); Leukocyte Esterase Urine Negative (Negative); Nitrite Urine Negative (Negative); Protein Urine 3+ (Negative); RBC Urine Automated 0-4 /hpf (0-4); Specific Gravity Urine 1.021 (1.000-1.030); Urobilinogen Urine Negative (Negative)
[2018-10-21 07:16] LABS: Estimated Average Glucose 140 mg/dl; Hemoglobin A1C 6.5 % (4.5-5.6)
--- NOTE | 2018-10-21 07:24 | Hospitalist Progress Note ---
Date of Service October 21, 2018 Assessment & Plan (1) Admitted to intensive care unit: symptomatic anemia, acute renal failure, anasarca. Consult city auditor Dr. Ford., Consult commercial driver Dr. Scales Patient had a liter of urine out after 80 mg of Lasix however his oxygen requirements have escalated since a therapeutic thoracentesis on the left lung revealed 1300 mL's of fluid. The patient has no postprocedural pneumothorax but does have evidence of pulmonary edema.. The pulmonary edema is not felt to be cardiogenic but likely from renal failure (2) Acute renal failure: Creatinine was 5.63 upon admission. Patient has a known history of chronic kidney disease stage IV, Nephrology had discussions with him in the past regarding possible need for dialysis. With his combination of acute renal failure, anasarca, hypoxia, his etiology may be that of cardiorenal syndrome. (3) Anasarca: He was given Lasix 40 mg IV in the ED, nephrology has ordered Lasix 80 3 times daily (4) Hypoxia: As noted above. (5) Anemia: Hemoglobin is decreased to 7.3, with recent hemoglobins being in the range of 8.3-9.2. Patient was given 1 unit of blood but with his progressive respiratory need this and support on hold at this time Patient is typed and screened, and his father signed blood consent. (6) Type I diabetes mellitus: His diabetes has been very brittle. His father reports his glucose was 45 yesterday while in the ED today is 536. He will undergo glycemic pharmacologic management while in the ICU. Has been hypoglycemic despite holding his usual diabetic medications. Patient is required dextrose infusions to support his hypoglycemia (7) Hypertension: Patient has been awake enough to take some oral medications given his hypertension has been escalated likely from fluid overload will attempt to use his metoprolol with a small sip and watch for aspiration. Will also have available Lopressor 5 mg IV every 4 hours as needed systolic blood pressure greater than 160 (8) Depression: Continue to hold sertraline 100 mg p.o. daily, until patient is more alert and no longer n.p.o. Subjective Patient is lethargic he does awaken to stimulation but quickly goes back to sleep he moans with his exam and he is in mild to moderate respiratory distress with hypoxia without significant oxygen supplementation his peripheral body wall edema Review of Systems Review of Systems: Unobtainable due to cognitive status Physical Exam Physical Exam: The patient appeared lethargic and difficult to arouse Vital signs as documented. Head exam is unremarkable. normocephalic, atraumatic Neck is with jugular venous distension, thyromegaly, or lymphademopathy Lungs are rales bilaterally to the apex Cardiac exam reveals Rhythm is regular. First and second heart sounds normal. Abdominal exam reveals hypoactive bowel sounds, no masses, no organomegaly, no bruits Extremities are mild to moderately edematous and both pedal pulses are present Neurologic exam is obtunded Skin is warm / Dry Results & Data Vital Signs (Past 12 Hours) Vital Signs Temp Pulse Pulse Resp BP BP Pulse Ox 10/21/18 06:00 84 14 155/88 H 93 10/21/18 05:01 85 14 159/89 H 93 10/21/18 04:01 86 19 149/91 H 92 10/21/18 03:14 36.8 C 87 16 147/84 H 95 10/21/18 03:08 36.8 C 90 14 147/85 H 91 10/21/18 03:03 36.8 C 91 H 17 147/85 H 10/21/18 02:15 87 18 150/94 H 93 10/21/18 02:02 59 L 16 118/88 100 10/21/18 02:01 87 14 150/94 H 95 10/21/18 01:31 85 14 166/83 H 95 10/21/18 01:09 82 16 157/81 H 98 10/21/18 01:01 85 16 157/81 H 94 10/21/18 00:54 86 15 159/90 H 95 10/21/18 00:34 87 18 172/87 H 10/21/18 00:00 88 16 10/20/18 23:53 88 20 172/87 H 92 10/20/18 23:21 90 12 96 10/20/18 22:41 37 C 91 H 18 148/72 H 91 (1) Acute renal failure Acute renal failure type: unspecified Qualified Code(s): N17.9 - Acute kidney failure, unspecified (2) Anemia Anemia type: unspecified type Qualified Code(s): D64.9 - Anemia, unspecified
[2018-10-21] MEDS ORDERED: INSULIN ASPART 100 UNITS/ML 3 ML PEN SC SCH ×2 (09:00→16:30)
[2018-10-21] MEDS ORDERED: INSULIN GLARGINE SOLOSTAR 100 UNITS/ML 3 ML PEN SC SCH (09:00)
[2018-10-21] MEDS: HEPARIN SOD 5,000 UNIT/0.5 ML VIAL SQ SCH ×2 (09:26→20:36)
[2018-10-21] MEDS: FAMOTIDINE 20 MG in SYRINGE 3 ML IV SCH ×2 (09:32→20:37)
--- NOTE | 2018-10-21 09:49 | Pharmacy Report ---
Pharmacy Glycemic Short Note 2 - Date of Service October 21, 2018 - Glycemic Short BSG Results (Last 24 hours): 10/20/18 10/20/18 10/21/18 23:29 23:45 02:12 Glucose 536 H* POC Glucose 552 H* 381 H* 10/21/18 10/21/18 10/21/18 03:16 04:38 04:39 Glucose 228 H POC Glucose 336 H* 255 H 10/21/18 10/21/18 10/21/18 05:45 06:42 07:52 Glucose POC Glucose 191 H 139 H 135 H 10/21/18 09:21 Glucose POC Glucose 112 H OUTPATIENT ANTIDIABETIC REGIMEN: * Humalog insulin pump: * basal rates: 0000 0.5units/hr; 0300 0.6units/hr; 0700 1 unit/hr * correction factor: 35mg/dL/unit * carb coverage: 1 unit per 10 gm CHO from [id number], then 1 unit per 7gm CHO from [id number] * A1c = 6.5% ASSESSMENT: * Type 1 diabetic admitted for KRYSTAL, hypoxemia, confusion and worsening edema * Patient usually manages his diabetes with insulin pump * He was placed on an insulin drip to quickly gain control of hyperglycemia. This AM, insulin drip is running at 1.1 units/hr and BSGs in low 100s. Patient did eat a little breakfast this AM however he remains drowsy. Pt is too drowsy to manage his own pump at this time. BUN is greater than 100 * This patient is known to our glycemic control service from prior admissions * Will resume a basal insulin regimen that performed well for him in August * His BSGs pattern last admission seemed to show he required more prandial insulin with breakfast meal only - will trial a regimen with larger breakfast dose * Will need to be vigilant for both impaired / delayed insulin absorption to to edema as well as increased risk for insulin accumulation due to impaired renal elimination PLAN FOR INPATIENT GLYCEMIC CONTROL: * Hold outpatient oral diabetes medications * Basal insulin * Lantus 15 units SQ Q AM * DC insulin drip ~ 5 hrs after first dose of Lantus given (or sooner if rate change calculator instructs RN to hold infusion) * Bolus insulin * NovoLog per scale ACHS or Q6hrs while NPO * Goal Range: Low 120 mg/dL - High 150 mg/dL * Correction Factor: 30 mg/dL/unit * Nutritional / Prandial insulin per carb ratio of 1 unit per 8 grams CHO consumed with breakfast only * Nutritional / Prandial insulin per carb ratio of 1 unit per 10 grams CHO consumed with lunch and dinner PLAN FOR DISCHARGE: * May resume insulin pump on discharge
[2018-10-21] MEDS: DEXTROSE 50% 50 ML SYRINGE IV PRN ×4 (10:48→17:10)
[2018-10-21] MEDS: FUROSEMIDE 80 MG in SYRINGE 0 ML IV SCH ×3 (11:03→20:35)
--- NOTE | 2018-10-21 11:03 | Consultation Report ---
DATE OF CONSULTATION: 10/21/2018 REASON FOR CONSULT: Acute renal failure on background CKD IV with anasarca and shortness of breath assessment. HISTORY OF PRESENT ILLNESS: The patient is a 48-year-old male with more than 20 years history of type 1 diabetes on chronic insulin therapy with associated CKD and nephrotic range proteinuria. His creatinine lately at baseline is around 4, he presented to the hospital yesterday with a chief complaint of. Because of increasing confusion, decreasing energy level, sleepiness and decreasing urine output, he was also complaining of some shortness of breath as well as lower extremity edema. In the Emergency Department, he was felt to be in fluid overload and did get 40 mg IV Lasix one time and after that he made 800 mL of urine. He is a poor historian as he is slightly mentally challenged and he lives with his parents. His BUN was 103 and creatinine was 5.75 at the time of admission. Sodium was 134. He does have some shortness of breath and is requiring oxygen, which he normally does not use. ALLERGIES: Reviewed in detail. HOME MEDICATIONS: Includes insulin, metoprolol, amlodipine, atorvastatin, Lasix 20 mg twice daily, hydralazine, sodium bicarbonate, Zoloft. PAST MEDICAL AND SURGICAL HISTORY: Acid reflux, hypertension, type 1 diabetes, gastroparesis secondary to diabetes, depression, anemia, diabetic nephropathy, chronic anxiety, mentally challenged. History of appendicectomy, shoulder surgery, hip surgery. FAMILY HISTORY: Negative for renal disease or dialysis. REVIEW OF SYSTEMS: Very limited due to the patient's lethargy, sleepiness as well as his mentally challenged status. PHYSICAL EXAMINATION: GENERAL: Awake, alert and oriented x3, but he is very sleepy and lethargic and unable to give me detailed history. HEENT: Mucous membrane is moist. NECK: Supple. No jugular venous distention. HEART: Normal S1 and S2. No murmur, rubs or gallops. LUNGS: Bilateral decreased breath sounds especially on the left lung. He did not have good inspiratory effort, so the quality is pretty limited. ABDOMEN: Soft, nontender. Slight edema of the abdominal wall. EXTREMITIES: Shows bilateral pretibial pitting edema. VITAL SIGNS: Blood pressure 147/85, pulse oximeter 91% on room air and 95% on 2 liter oxygen, pulse rate 87 per minute, afebrile. LABORATORY TEST: BUN 103, creatinine 5.75, sodium 134, potassium 4.5. Urinalysis shows 3+ proteinuria, negative for blood. ASSESSMENT AND PLAN: A 48-year-old male with type 1 diabetes of more than 20 years duration with established chronic kidney disease IV to V with nephrotic range proteinuria, now presenting with worsening kidney function as well as worsening fluid retention. It appears he has entered into the end-stage renal disease category. The patient has been quite hesitant to do dialysis in the outpatient setting; however, it appears he is in need of dialysis, but not today. I would like to diurese him a little bit more. We will give Lasix 80 mg IV 3 times a day. We do need to monitor his input and output accurately, but eventually he does need to be started on dialysis and that could happen within the next few days. If we decide to start dialysis, I will go ahead and put tunneled dialysis catheter straight away if possible and practically feasible. Case was discussed with document review specialist. We do need to do cardiac evaluation as he is also at incredibly high risk for cardiac problems given his correction diabetes history. . MTDD
[2018-10-21] MEDS ORDERED: ONDANSETRON INJ 2 MG/ML 2 ML VIAL ONE (11:18)
[2018-10-21] MEDS ORDERED: ONDANSETRON INJ 2 MG/ML 2 ML VIAL IV STA (11:19)
[2018-10-21] MEDS: INSULIN ASPART 100 UNITS/ML 3 ML PEN SC SCH ×3 (11:50→20:35)
--- NOTE | 2018-10-21 11:56 | Critical Care Consultation ---
Date of Consultation October 21, 2018 Assessment & Plan (1) Hypoxia: Impression: 1. Fluid overload secondary to nephrotic syndrome. 2. Acute on chronic kidney disease. 3. Left-sided pleural effusion. Appears to be transudate by gross examination. 4. Type 1 diabetes. 5. History of depression. 6. Diabetic nephropathy. Plan: 1. Continue glucose control, change insulin drip to NovoLog. 2. The patient has nausea and likely related to gastroparesis given his advanced kidney disease, continue Zofran as needed. 3. Thoracentesis was done, 1300 mL of light yellow fluid was removed. 4. Agree with aggressive diuresis, appreciate Dr. Ortiz. 5. Pleural fluid analysis, likely transudative. 6. Once the patient diuresed the excessive amount of fluid, likely his respiratory status will improve. 7. Continue to follow glucose closely. 8. DVT and GI prophylaxis. 9. Oral intake once his nausea is improved. 10. Discussed with Dr. Ortiz, highly appreciate his input. 11. Discussed with the staff on rounds and details. 12. Disposition plan to telemetry floor if agreeable by the hospital service. Critical care time spent with the patient was 45 minutes excluding procedure time. History of Present Illness Reason for Consultation: Acute respiratory failure Requesting Physician: Dr. Haro Attending Physician: Dionicio Haro MD History of Present Illness Dear Dr. Haro: Thank you for the kind referral Mr. De Los Santos to critical care service. This is 48-year-old gentleman with history of type 1 diabetes for the past 20 years, history of chronic kidney disease with escalating nephrotic syndrome, has been followed by nephrology as an outpatient, the patient presented to the hospital with increasing shortness of breath and confusion. The patient on arrival to the ED was found to have glucose of 600 and without anion gap and his bicarb was maintained. The patient has been maintained also on the bicarb at home. The patient was lethargic when I saw him, he was on oxygen mask to maintain his O2 sat 93%. The patient denies any chest pain, no nausea or vomiting at that time. He did have a nausea while we were doing thoracentesis on him. However he did not have any vomiting. No change in bowel movements and urine habits. He does have significant edema in the lower extremities. And his upper torso. He had a dry mucosa. No hemoptysis no hematemesis no hematochezia. No dizziness or loss consciousness. And his confusion appears to be metabolic. Allergies Allergy/AdvReac Type Severity Reaction Status Date / Time shellfish derived Allergy Severe anaphylaxis Verified 10/21/18 00:26 codeine Allergy Intermediate Hives Verified 10/21/18 00:26 promethazine Allergy Intermediate itchy/hives Verified 10/21/18 00:26 Home Medications Home Medications Medication Instructions Recorded Confirmed Type metoprolol tartrate 25 mg PO BID #60 tab 08/13/18 10/21/18 Rx Humalog U-100 Insulin 1 sliding scale dose SUBCUT CONT 09/10/18 10/21/18 History amlodipine 10 mg PO QAM 09/10/18 10/21/18 History atorvastatin 10 mg PO DAILY 09/10/18 10/21/18 History cholecalciferol (vitamin D3) 2,000 units PO QAM 09/10/18 10/21/18 History [Vitamin D3] furosemide 20 mg PO BID PRN 09/10/18 10/21/18 History hydralazine 25 mg PO TID 09/10/18 10/21/18 History sodium bicarbonate 650 mg PO BID #60 tab 09/15/18 10/21/18 Rx sertraline 100 mg PO DAILY 10/21/18 10/21/18 History Patient History Medical History Acid reflux (Chronic) Hypertension (Chronic) Type I diabetes mellitus (Chronic) Gastroparesis due to DM (Chronic) Depression (Chronic) Anemia (Chronic) Diabetic nephropathy (Chronic) CKD stage 3 due to type 1 diabetes mellitus (Chronic) Anxiety (Chronic) Surgical History History of appendectomy (Resolved) H/O shoulder surgery (Resolved) History of hip surgery (Resolved) Family History Grandfather Myocardial infarction Social History Preferred Language: Liberian Communication Ability: Effective Gaming Host Required: No Beliefs That Will Affect Care: None marital status: Legally Current Living Situation: Parent current occupational status: employed Other Information That Helps Us Care for You: No Feels Safe at Home: Yes Safety Concerns: Feels Safe At This Time Smoking Status: Never smoker Tobacco Type: smokeless tobacco Do You Dip or Chew Tobacco: No Second Hand Exposure: No Tobacco Cessation Education Requested by Patient: No Hx Alcohol Use: No Hx Substance Use: No Review of Systems Review of Systems: Review of system including 14 systems as mentioned above in the first section. Physical Exam Physical Exam: Vital signs are stable except for blood pressure elevated at 160/88. O2 saturation currently is 96% on room air after thoracentesis. S1-S2, diminished breath sounds in the left base, abdomen is benign, edema 3+ with a nasarca. Neurologically he is lethargic. No skin rash. Oral mucosa is dry. Results & Data Vital Signs (Past 12 Hours) Vital Signs Temp Pulse Pulse Resp BP BP Pulse Ox 10/21/18 10:59 36.7 C 84 15 165/88 H 94 10/21/18 09:01 81 15 153/84 H 92 10/21/18 08:01 81 14 154/85 H 92 10/21/18 07:16 85 16 149/89 H 93 10/21/18 06:00 84 14 155/88 H 93 10/21/18 05:01 85 14 159/89 H 93 10/21/18 04:01 86 19 149/91 H 92 10/21/18 03:14 36.8 C 87 16 147/84 H 95 10/21/18 03:08 36.8 C 90 14 147/85 H 91 10/21/18 03:03 36.8 C 91 H 17 147/85 H 10/21/18 02:15 87 18 150/94 H 93 10/21/18 02:02 59 L 16 118/88 100 10/21/18 02:01 87 14 150/94 H 95 10/21/18 01:31 85 14 166/83 H 95 10/21/18 01:09 82 16 157/81 H 98 10/21/18 01:01 85 16 157/81 H 94 10/21/18 00:54 86 15 159/90 H 95 10/21/18 00:34 87 18 172/87 H 10/21/18 00:00 88 16 10/20/18 23:53 88 20 172/87 H 92 Laboratory Results Labs were reviewed which showed hyperglycemia, elevated BUN and creatinine above his baseline from a month ago, no leukocytosis. Diagnostic Findings Chest x-ray showed left-sided pleural effusion, mild pulmonary vascular congestion.
--- NOTE | 2018-10-21 12:01 | Procedure Note ---
Procedure Note Date of Service October 21, 2018 Note Thoracentesis was done at the bedside due to the presence of large left-sided pleural effusion interfering with his respiratory status, consent obtained from the patient, risk and benefit explained, agreed to the procedure. The patient was placed in upright position, under strict sterile field, the skin was prepped with chlorhexidine on the left side, under ultrasound guidance, noted the fluid to be significant, the skin was prepped with 1% lidocaine of 10 mL, using Seldinger technique and scalpel, the catheter introduced into the left pleural cavity at the 11th intercostal space. The needle was removed and the catheter connected to the bag, manual aspiration was done, 1300 mL of light yellow fluid was removed, the catheter was removed, pressure was applied for 2 minutes at the insertion site, no immediate complication, the patient tolerated the procedure very well, fluid sent for analysis, chest x-ray is pending. Thank you for the assistance of my colleagues. Coding
--- NOTE | 2018-10-21 12:15 | XRay Report ---
XR chest 1V portable CLINICAL HISTORY: 48 years-old Male presenting with thoracentesis left sided. TECHNIQUE: Portable upright AP view of the chest was obtained. COMPARISON: 10/20/2018. FINDINGS: Cardiac silhouette moderately enlarged. Pulmonary vasculature borderline prominent. Bronchial wall cu ffing asymmetrically on the right. There is also asymmetric right perihilar and infrahilar opacity. I mproved aeration of the left lung base due to the left thoracentesis. Small left pleural effusion rem ains. No large left pneumothorax. Osseous structures normal. Upper abdomen normal. IMPRESSION: 1. No significant pneumothorax status post left thoracentesis with expected decreased volume of left pleural effusion. 2. Improved aeration of the left lung base. 3. Right basilar/infrahilar infiltrate may represent edema or pneumonia. Consider PA and lateral vie ws for better assessment. Electronically signed by: Jose Zaldivar M.D. 10/21/2018 12:14 PM
[2018-10-21 13:11] LABS: Appearance Pleural Fluid CLEAR; Color Pleural Fluid COLORLESS; Mononuclear WBC Pleural 71.8 %; Polynuclear WBC Pleural 28.2 %; RBC Pleural Fluid (A) < 3000 /uL; Source Pleural Fluid LEFT LUNG; WBC Pleural Fluid (A) 325 /uL
[2018-10-21] MEDS: METOPROLOL TARTRATE 1 MG/ML VIAL IV PRN ×3 (13:50→23:42)
[2018-10-21] MEDS ORDERED: STOP ORDER: D/C INSULIN DRIP ONE (14:00)
[2018-10-21] MEDS ORDERED: CHLOROTHIAZIDE SODIUM 500 MG in DEXTROSE 5% 50 ML IV ONE (15:00)
[2018-10-21] MEDS ORDERED: DEXTROSE 10% 1,000 ML IV SCH (15:15)
[2018-10-21 15:26] LABS: iSTAT Allen Test Pass; iSTAT Arterial Blood Gas HCO3 26 meg/L (19-24); iSTAT Arterial Blood Gas pCO2 40 mmHg (35-46); iSTAT Arterial Blood Gas pH 7.42 (7.35-7.45); iSTAT Carbon Dioxide 27 mEq/l (24-31); iSTAT Site R Radial
[2018-10-21] MEDS ORDERED: FUROSEMIDE 80 MG in SYRINGE 0 ML IV ONE (15:30)
[2018-10-21 15:45] LABS: BUN Creatinine Ratio 18.2 (10-20); Calcium 7.7 mg/dl (8.5-10.1); Creatinine Clr Calc Pharmacy 17.1 ml/min; Est GFR (African American) 13.7; Est GFR (Non-African American) 11.9; Potassium 4.6 mmol/L (3.5-5.1)
[2018-10-21] MEDS: METOPROLOL TARTRATE 25 MG TAB PO SCH (20:35)
[2018-10-22] MEDS: METOPROLOL TARTRATE 1 MG/ML VIAL IV PRN ×4 (04:38→23:49)
[2018-10-22 05:33] LABS: Basophils # (auto) 0.06 K/uL (0-0.2); Basophils % (auto) 0.4 %; Eosinophils # (auto) 0.17 K/uL (0-0.5); Eosinophils % (auto) 1.1 %; Hematocrit (blood only) 26.1 % (42-52); Hemoglobin 8.7 g/dL (14.0-18.0); Immature Granulocytes # (auto) 0.04 K/uL (0.00-0.02); Immature Granulocytes % (auto) 0.3 %; Lymphocytes # (auto) 1.23 K/uL (1.2-3.4); Lymphocytes % (auto) 8.3 %; Mean Corpuscular Hgb Conc 33.3 g/dL (32-36); Mean Corpuscular Volume 87.9 fL (80-100); Mean Platelet Volume 8.6 fL (7.4-10.4); Monocytes # (auto) 1.53 K/uL (0.11-0.59); Monocytes % (auto) 10.3 %; Neutrophils # (auto) 11.82 K/uL (1.4-6.5); Neutrophils % (auto) 79.6 %; Platelet Count 344 K/uL (130-400); RDW Coefficient of Variation 14.6 % (11.5-14.5); RDW Standard Deviation 47.1 fL (36.4-46.3); Red Blood Count 2.97 M/uL (4.7-6.1); White Blood Count 14.85 K/uL (4.8-10.8)
[2018-10-22 05:49] LABS: Partial Thromboplastin Time 27.1 Seconds (21.0-31.0); Prothrombin Time 10.3 Seconds (9.0-12.0)
[2018-10-22 06:12] LABS: Alanine Aminotransferase 51 U/L (12-78); Albumin Level 2.5 gm/dl (3.4-5.0); Alkaline Phosphatase 110 U/L (45-117); Aspartate Aminotransferase 24 U/L (15-37); BUN Creatinine Ratio 17.1 (10-20); Bilirubin Direct < 0.1 mg/dl (0-0.2); Bilirubin,Total 0.3 mg/dl (0.2-1); Blood Urea Nitrogen 98 mg/dl (7-18); Calcium 7.8 mg/dl (8.5-10.1); Carbon Dioxide 29 mmol/L (21-32); Chloride 99 mmol/L (98-107); Creatinine Clr Calc Pharmacy 15.4 ml/min; Est GFR (African American) 12.4; Est GFR (Non-African American) 10.7; Glucose 92 mg/dl (70-99); Magnesium 2.4 mg/dl (1.8-2.4); Phosphorus 6.3 mg/dl (2.5-4.9); Potassium 3.8 mmol/L (3.5-5.1); Sodium 135 mmol/L (136-145); Total Protein 5.8 gm/dl (6.4-8.2)
[2018-10-22] MEDS ORDERED: INSULIN ASPART 100 UNITS/ML 3 ML PEN SC SCH (07:30)
[2018-10-22] MEDS: INSULIN ASPART 100 UNITS/ML 3 ML PEN SC SCH ×4 (07:42→20:22)
[2018-10-22] MEDS: METOPROLOL TARTRATE 25 MG TAB PO SCH (07:45)
[2018-10-22] MEDS: FAMOTIDINE 20 MG in SYRINGE 3 ML IV SCH (07:48)
[2018-10-22] MEDS ORDERED: METOPROLOL TARTRATE 25 MG TAB PO ONE (08:30)
[2018-10-22] MEDS: FUROSEMIDE 80 MG in SYRINGE 0 ML IV SCH ×3 (08:33→20:20)
[2018-10-22] MEDS: HEPARIN SOD 5,000 UNIT/0.5 ML VIAL SQ SCH ×2 (08:33→20:22)
[2018-10-22] MEDS ORDERED: INSULIN GLARGINE SOLOSTAR 100 UNITS/ML 3 ML PEN SC ONE (09:00)
[2018-10-22] MEDS ORDERED: ACETAMINOPHEN 325 MG TAB ONE (10:05)
[2018-10-22] MEDS ORDERED: ACETAMINOPHEN 325 MG TAB PO PRN (10:05)
--- NOTE | 2018-10-22 10:30 | Progress Note ---
DATE: 10/22/2018 NEPHROLOGY PROGRESS NOTE SUBJECTIVE: Overnight, the patient diuresed quite well with about 4 liters of urine. He feels better from a breathing standpoint, although he is still requiring oxygen. His vital signs are stable. He did have a pleural tap and fluid was obtained. His labs have remained stable despite vigorous diuresis. OBJECTIVE: VITAL SIGNS: Blood pressure 185/99, pulse ox 93% on 4-liter nasal cannula, respiratory rate 14 per minute, pulse rate 82 per minute, afebrile. CHEST: Bilateral decreased breath sound especially on the right. CARDIOVASCULAR: S1 and S2, regular. ABDOMEN: Soft, nontender. EXTREMITIES: Significantly less edema today, although he does have slight edema in the upper thigh. LABORATORY TESTS: Blood work from this morning shows BUN of 98 and creatinine of 5.75, so essentially similar to yesterday. Sodium 135, potassium 3.8, calcium 7.8. Phosphorus 6.3, albumin 2.5. ASSESSMENT AND PLAN: A 48-year-old male with type 1 diabetes of more than 20 years duration with established chronic kidney disease stage IV to stage V with nephrotic range proteinuria, now presenting with worsening kidney function as well as worsening fluid retention. It appears he has entered into the end-stage renal disease category. RECOMMENDATIONS: 1. Continue Lasix 80 IV t.i.d. for now. His blood pressure is still high, so I do not think he is over diuresed as of now. 2. Continue daily labs. 3. Continue monitoring input and output. 4. The plan is to continue to diurese over the weekend and then based on his labs on Thursday, we will decide whether he needs to do dialysis or not. If he needs dialysis, the plan is to go directly to a tunneled dialysis catheter as he is ESRD and will need dialysis for the foreseeable future. Blood pressure is still high, most of it is related with fluid overload.
--- NOTE | 2018-10-22 11:06 | Pharmacy Report ---
Pharmacy Glycemic Short Note 2 - Date of Service October 22, 2018 - Glycemic Short BSG Results (Last 24 hours): 10/21/18 10/21/18 10/21/18 10:46 11:07 13:11 Glucose POC Glucose 79 116 H 58 L* 10/21/18 10/21/18 10/21/18 13:13 13:46 15:05 Glucose 60 L POC Glucose 59 L* 100 H 10/21/18 10/21/18 10/21/18 16:07 16:08 17:07 Glucose POC Glucose 69 L* 70 53 L* 10/21/18 10/21/18 10/21/18 17:08 17:26 18:25 Glucose POC Glucose 50 L* 134 H 98 10/21/18 10/21/18 10/21/18 19:22 20:29 21:29 Glucose POC Glucose 82 86 93 10/21/18 10/21/18 10/21/18 22:46 23:36 23:37 Glucose POC Glucose 85 67 L* 71 10/22/18 10/22/18 10/22/18 00:42 01:35 02:32 Glucose POC Glucose 101 H 125 H 109 H 10/22/18 10/22/18 10/22/18 04:25 04:32 07:22 Glucose 92 POC Glucose 107 H 122 H OUTPATIENT ANTIDIABETIC REGIMEN: * Humalog insulin pump * Basal rates: 0000 0.5units/hr; 0300 0.6units/hr; 0700 1 unit/hr * Correction factor: 35mg/dL/unit * Carb coverage: 1 unit per 10 gm CHO from 5981-7659, then 1 unit per 7gm CHO from 9968-9331 * A1c = 6.5% on 10/21/18 ASSESSMENT: * Type 1 diabetic admitted for KRYSTAL, hypoxemia, confusion and worsening edema * Patient usually manages his diabetes with insulin pump * This admission, he was placed on an insulin drip to quickly gain control of hyperglycemia and was also administered a Lantus dose that performed well for him in a recent admission * Basal insulin * Patient became hypoglycemic x2 separate occasions yesterday, possibly as a result of KRYSTAL this admission * Will decrease Lantus by 20% (hesitant to be more aggressive with decrease in a type 1 diabetic). Of note, this dose administered on a previous admission yielded an AM fasting BSG of 239 mg/dL, but patient had better renal function that visit * Bolus insulin * His BSGs pattern last admission seemed to show he required more prandial insulin with breakfast meal only - was going to trial a regimen with larger breakfast dose, but will instead use one CHO ratio for all checks today to prevent repeat hypoglycemia. Will consider this again in the future based on trend in BSG's * Patient consumed 49 g CHO with breakfast today * Will need to be vigilant for both impaired / delayed insulin absorption to to edema as well as increased risk for insulin accumulation due to impaired renal elimination PLAN FOR INPATIENT GLYCEMIC CONTROL: * Basal insulin - Lantus 12 units x1 now then ongoing qAM based on BSG * 10 units for BSG less than 80 mg/dL * 12 units for BSG 80-160 mg/dL * 14 units for BSG greater than 160 mg/dL * Bolus insulin * NovoLog per scale ACHS or Q6hrs while NPO and one overnight check * Goal Range: Low 120 mg/dL - High 150 mg/dL * Correction Factor: 30 mg/dL/unit * Nutritional / Prandial insulin per carb ratio of 1 unit per 10 grams CHO consumed PLAN FOR DISCHARGE: * May resume insulin pump on discharge
--- NOTE | 2018-10-22 11:43 | Nuclear Medicine Report ---
NM pul vent and perfuse CLINICAL HISTORY: Atypical chest pain. Hypoxia. Suspected pulmonary embolism. History of nephrotic sy ndrome. COMPARISON STUDY: Chest x-ray dated 10/21/2018 FINDINGS: The patient was ventilated utilizing 32.2 mCi of technetium 99m DTPA aerosol. The patient was perfuse d utilizing 5.4 mCi of technetium 99m MAA. There is very slight in image and 80 in the perfusion jonnathan arnaldo. There are no significant VQ mismatches. This examination is of low probability for pulmonary emb olism. IMPRESSION: Low probability of pulmonary embolism. Electronically signed by: Geovanny Moncada M.D. 10/22/2018 11:42 AM
--- NOTE | 2018-10-22 11:48 | Hospitalist Progress Note ---
Date of Service October 22, 2018 Assessment & Plan (1) Admitted to intensive care unit: Patient admitted 10/21/2018 for symptomatic anemia with acute on chronic renal failure and anasarca Primary complaint in ICU was fluid overload secondary to nephrotic syndrome * Associated left pleural fluid effusion - s/p thoracentesis 10/21/2018 * Continue with aggressive diuresis * We will hold off on dialysis per nephrology at this time * Continue diuresis over the weekend * Based on labs on Thursday, determination of need for dialysis to be made * If patient requires dialysis Dr. Bullock recommends a tunneled catheter as this will be a long-term decision Oxygenation has improved Patient is stable to be transferred to the telemetry unit (2) Acute worsening of stage 4 chronic kidney disease: Patient admitted with nephrotic syndrome Nephrology consulted and following -appreciate Dr. Ortiz's input Continue to evaluate for need for dialysis with serial labs Currently 4 L negative cumulatively since admission Continue with furosemide per nephrology (3) Hypertension: Patient started on hydralazine Lopressor increased to 50 mg p.o. twice daily Continue with aggressive diuretics Echocardiogram as above Continue to follow on telemetry (4) Anemia: Drop in hemoglobin yesterday to 7.3 Baseline hemoglobin has been 8.3-9.2 Received 1 unit of packed red blood cells yesterday Hemoglobin is 8.7 today No signs of active bleeding Continue to follow serial labs Transfuse judiciously (5) Hypoxia: Multifactorial to fluid overload, large pleural effusion Check a ventilation/perfusion scan today to rule out pulmonary embolus Continue with prophylactic heparin Oxygen requirements have decreased to 4 L/min via nasal cannula SaO2 continues to remain in the low 90s Continue to follow on telemetry Treat underlying nephrotic syndrome Continue diuresis (6) Type I diabetes mellitus: Brittle diabetic BSG better controlled today Glycemic consult placed Hemoglobin A1c is 6.5 Continue to follow closely (7) Depression: Flat affect on examination Uses sertraline 100 mg p.o. daily at home Restart now the patient is no longer n.p.o. (8) DVT prophylaxis: No asymmetrical edema Continue heparin subcu Ambulate as tolerated Please refer to Dr. Haro's addendum for any further recommendations. Supervising Physician Co-Signing Physician Notes CUSTOMER EXPERIENCE STRATEGIST Physician Supervision Note: I discussed with Dev MEDINA and agree with findings and plan as documented in the note. Any exceptions or clarifications are listed here: None Patient was independently seen and examined. He is feeling much better than yesterday. He did have a significant diuresis. He still has a significant oxygen requirement. He has no chest pain some peripheral swelling there remains along with some anasarca Cardiac exam is regular JVD is present lungs have crackles at the bases he has 1+ edema to his legs Continue aggressive diuresis blood pressure slightly up we will re-add some of his home medications including hydralazine 3 times daily and will add Zoloft for his depression Documented By: Dionicio Haro Subjective Attending: Dr. Haro Patient seen in exam at the bedside. Difficulty sleeping last night. Denies any acute chest pain, shortness of breath, nausea, vomiting, fever, chills, sweats, rigors. Oxygenation requirements have decreased since thoracentesis yesterday and with increased diuresis. Patient is now negative 4454 mL's since admission. Denies flank or back pain. Review of Systems Constitutional: + malaise and + insomnia; no fever, no chills and no sweats Eyes: no diplopia, no worsening vision and no problem reported Ear, Nose, Mouth, Throat: no dizziness, no epistaxis, no sore throat and no dysphagia Respiratory: no cough, no dyspnea, no sputum production and no wheezing Cardiovascular: no chest pain, no dyspnea, no palpitations and no lightheadedness Gastrointestinal: no nausea, no vomiting and no diarrhea/loose stools Genitourinary: no hematuria Musculoskeletal: no back pain Integumentary: no rash Neurologic: no dizziness, no headache(s) and no problem reported Endocrine: no problem reported Hematologic / Lymphatic: no easy bleeding and no problem reported Allergy / Immunological: no tongue swelling and no cough Physical Exam Physical Exam: GENERAL : No acute distress. Flat affect EYES: No icterus, gaze conjugate. Pupils equal and reactive to light NOSE: No evidence of epistaxis MOUTH: No lesions or candidiasis. Mucosa moist. Appears to have some dental caries in the molars NECK: Supple. No JVD LUNGS: Decreased breath sounds. No wheezes or rhonchi appreciated HEART: Regular, rate controlled. No appreciation of ectopy ABDOMEN: Soft, NT, ND, BS Present EXTREMITIES: No LE edema, pedal pulses intact and equal bilaterally NEURO: A&OX3. Flat affect Results & Data Vital Signs (Past 12 Hours) Vital Signs Pulse Resp BP Pulse Ox 10/22/18 10:00 72 14 160/82 H 95 10/22/18 09:01 83 16 171/89 H 95 10/22/18 08:01 82 14 185/99 H 93 10/22/18 08:00 79 10/22/18 07:31 81 8 L 173/98 H 93 10/22/18 07:01 80 15 178/102 H 93 10/22/18 05:31 79 5 L 171/94 H 93 10/22/18 05:01 79 5 L 173/98 H 92 10/22/18 05:00 78 5 L 93 10/22/18 04:38 83 176/107 H 10/22/18 04:30 82 11 L 176/107 H 96 10/22/18 04:01 82 11 L 170/101 H 93 10/22/18 04:00 82 16 93 10/22/18 03:31 80 22 177/96 H 91 10/22/18 03:01 81 14 172/93 H 93 10/22/18 02:31 80 16 179/94 H 90 10/22/18 02:01 79 13 175/101 H 91 10/22/18 02:00 79 16 92 10/22/18 01:31 78 14 163/91 H 88 L 10/22/18 01:01 78 14 162/82 H 95 10/22/18 01:00 77 15 94 10/22/18 00:37 81 14 161/85 H 93 10/22/18 00:01 79 16 151/93 H 88 L 10/22/18 00:00 79 22 88 L 10/21/18 23:47 86 10/21/18 23:42 86 169/92 H 10/21/18 23:32 87 16 88 L 10/21/18 23:31 86 14 169/92 H 88 L Laboratory Results 10/22/18 04:25 10/22/18 04:25 Diagnostic Findings XR chest 1V portable CLINICAL HISTORY: 48 years-old Male presenting with thoracentesis left sided. TECHNIQUE: Portable upright AP view of the chest was obtained. COMPARISON: 10/20/2018. FINDINGS: Cardiac silhouette moderately enlarged. Pulmonary vasculature borderline prominent. Bronchial wall cuffing asymmetrically on the right. There is also asymmetric right perihilar and infrahilar opacity. Improved aeration of the left lung base due to the left thoracentesis. Small left pleural effusion remains. No large left pneumothorax. Osseous structures normal. Upper abdomen normal. IMPRESSION: 1. No significant pneumothorax status post left thoracentesis with expected decreased volume of left pleural effusion. 2. Improved aeration of the left lung base. 3. Right basilar/infrahilar infiltrate may represent edema or pneumonia. Consider PA and lateral views for better assessment. Electronically signed by: Jose Zaldivar M.D. 10/21/2018 12:14 PM Echocardiogram performed 10/21/2018 INTERPRETATION SUMMARY: Left ventricular systolic function is mildly reduced Left atrium is mildly dilated There is mild to moderate mitral regurgitation Moderate sized pericardial effusion Compared to study from 08/2018 the LV function appears slightly worse and there is evidence of mitral regurgitation. The pericardial effusion is unchanged. Left ventricular ejection fraction is 45 to 50% There appears to be mild hypokinesis involving the septum and anterior wall No hemodynamically significant valvular aortic stenosis The tricuspid valve anatomy is normal. There is no evidence of gross pulmonary hypertension (1) Anemia Anemia type: unspecified type Qualified Code(s): D64.9 - Anemia, unspecified
--- NOTE | 2018-10-22 12:14 | Critical Care Progress Note ---
Date of Service October 22, 2018 Assessment & Plan (1) Metabolic acidosis: Impression: 1. Nephrotic syndrome with acute on chronic kidney disease. 2. Left-sided pleural effusion, transudate in nature. 3. Dyspnea secondary to fluid overload, ruled out for VTE by VQ scan. 4. Diabetes type 1. Now is better controlled. 5. History of depression. Plan: 1. Continue with diuresis plan per Dr. Ortiz, appreciate his input. 2. Plan for future dialysis. 3. Start oral intake. 4. Obtain VQ scan to rule out PE given his hypoxia, low probability for PE which is normal. 5. DVT and GI prophylaxis. 6. Start hydralazine 25 mg p.o. 3 times daily for blood pressure control. 7. Change Lopressor to 50 mg p.o. twice daily for blood pressure control. 8. Out of bed as tolerated. 9. disposition plan to telemetry floor. 10. Glucose control per pharmacy, appreciate input. 11. Discussed with the staff on rounds and details. Critical care time spent with the patient was 45 minutes. Subjective The patient is clinically improving, he did have interrupted sleep overnight, likely from patient care rather than shortness of breath, he does not have orthopnea, no chest pain reported, swelling in his lower extremities has improved significantly. Review of Systems Review of Systems: Review of system including 10 systems were unremarkable except for the above mentioned in the first section. Physical Exam Physical Exam: Vital signs are stable, O2 sats 92% on 2 L, S1-S2 regular rate and rhythm, blood pressure slightly elevated, crackles mainly at the bases were audible, no JVD, abdomen is benign, edema in the periphery but much less. Neurologically he is still lethargic but nonfocal. No rash. No oral lesion. Results & Data Vital Signs (Past 12 Hours) Vital Signs Temp Pulse Pulse Resp BP BP Pulse Ox 10/22/18 12:00 36.6 C 72 14 176/96 H 92 10/22/18 10:00 72 14 160/82 H 95 10/22/18 09:01 83 16 171/89 H 95 10/22/18 08:01 82 14 185/99 H 93 10/22/18 08:00 79 10/22/18 07:31 81 8 L 173/98 H 93 10/22/18 07:01 80 15 178/102 H 93 10/22/18 05:31 79 5 L 171/94 H 93 10/22/18 05:01 79 5 L 173/98 H 92 10/22/18 05:00 78 5 L 93 10/22/18 04:38 83 176/107 H 10/22/18 04:30 82 11 L 176/107 H 96 10/22/18 04:01 82 11 L 170/101 H 93 10/22/18 04:00 82 16 93 10/22/18 03:31 80 22 177/96 H 91 10/22/18 03:01 81 14 172/93 H 93 10/22/18 02:31 80 16 179/94 H 90 10/22/18 02:01 79 13 175/101 H 91 10/22/18 02:00 79 16 92 10/22/18 01:31 78 14 163/91 H 88 L 10/22/18 01:01 78 14 162/82 H 95 10/22/18 01:00 77 15 94 10/22/18 00:37 81 14 161/85 H 93 Laboratory Results BUN and creatinine remained stable after 4 L of urine output. Pleural fluid are transudate in nature. Diagnostic Findings VQ scan was done due to hypoxia in a patient who had nephrotic syndrome to rule out PE, and it turns out to be low probability for PE.
[2018-10-22] MEDS: METOPROLOL TARTRATE 50 MG TAB PO SCH (20:21)
[2018-10-23] MEDS ORDERED: INSULIN ASPART 100 UNITS/ML 3 ML PEN SC SCH ×2 (02:00→02:15)
[2018-10-23 06:43] LABS: Basophils # (auto) 0.05 K/uL (0-0.2); Basophils % (auto) 0.5 %; Eosinophils % (auto) 3.1 %; Hematocrit (blood only) 26.2 % (42-52); Immature Granulocytes # (auto) 0.04 K/uL (0.00-0.02); Immature Granulocytes % (auto) 0.4 %; Lymphocytes # (auto) 1.29 K/uL (1.2-3.4); Lymphocytes % (auto) 13.1 %; Mean Corpuscular Hgb Conc 34.4 g/dL (32-36); Mean Corpuscular Volume 87.3 fL (80-100); Mean Platelet Volume 8.2 fL (7.4-10.4); Monocytes # (auto) 1.51 K/uL (0.11-0.59); Monocytes % (auto) 15.4 %; Neutrophils # (auto) 6.63 K/uL (1.4-6.5); Neutrophils % (auto) 67.5 %; Platelet Count 328 K/uL (130-400); RDW Coefficient of Variation 14.3 % (11.5-14.5); RDW Standard Deviation 45.6 fL (36.4-46.3); White Blood Count 9.82 K/uL (4.8-10.8)
[2018-10-23 06:51] LABS: Partial Thromboplastin Time 27.1 Seconds (21.0-31.0); Prothrombin Time 10.1 Seconds (9.0-12.0)
[2018-10-23 07:15] LABS: Alanine Aminotransferase 38 U/L (12-78); Albumin Level 2.3 gm/dl (3.4-5.0); Alkaline Phosphatase 114 U/L (45-117); Aspartate Aminotransferase 15 U/L (15-37); BUN Creatinine Ratio 15.6 (10-20); Bilirubin Direct < 0.1 mg/dl (0-0.2); Bilirubin,Total 0.2 mg/dl (0.2-1); Blood Urea Nitrogen 99 mg/dl (7-18); Calcium 7.7 mg/dl (8.5-10.1); Carbon Dioxide 28 mmol/L (21-32); Chloride 97 mmol/L (98-107); Creatinine Clr Calc Pharmacy 13.5 ml/min; Est GFR (African American) 11.2; Est GFR (Non-African American) 9.7; Glucose 204 mg/dl (70-99); Magnesium 2.4 mg/dl (1.8-2.4); Phosphorus 6.1 mg/dl (2.5-4.9); Potassium 3.6 mmol/L (3.5-5.1); Sodium 135 mmol/L (136-145); Total Protein 5.8 gm/dl (6.4-8.2)
--- NOTE | 2018-10-23 07:26 | Hospitalist Progress Note ---
Date of Service October 23, 2018 Assessment & Plan (1) Acute worsening of stage 4 chronic kidney disease: Patient had a liter of urine out after 80 mg of Lasix however his oxygen requirements have escalated since a therapeutic thoracentesis on the left lung revealed 1300 mL's of fluid. The patient has no postprocedural pneumothorax but does have evidence of pulmonary edema.. The pulmonary edema is not felt to be cardiogenic but likely from renal failure pt had great urine production from diuretics and on 10/23 nephrology did decrease dosing interval to BID with eyes toward beginning renal replacement therapy on wednesday 10/25 BUN and Cr remain markedly elevated (2) Hypertension: has had his hydralazine increased and will re add amlodipine Will also have available Lopressor 5 mg IV every 4 hours as needed systolic blood pressure greater than 160 (3) Anemia: Hemoglobin is decreased to 7.3, with recent hemoglobins being in the range of 8.3-9.2., hgb has stabilized Patient was given 1 unit of blood Patient is typed and screened, and his father signed blood consent. (4) Hypoxia: improved with diuresis (5) Type I diabetes mellitus: His diabetes has been very brittle. undergo glycemic pharmacologic management. Has been hypoglycemic despite holding his usual diabetic medications. Patient is required dextrose infusions to support his hypoglycemia (6) Depression: pt does have a very flat affect, starting dialysis may exacerbate this (7) DVT prophylaxis: heparin sc Subjective Patient has no complaints he is awake and oriented he recalls his visit with nephrology. There is consideration for renal replacement therapy beginning on the . Patient is otherwise tolerating the diet pressure remains difficult to control remains on diuresis with intravenous Lasix Review of Systems Review of Systems: ROS: well nourished well developed. No double vision blurry vision No problems with speech or swallowing No palpitations, chest pain or pressure does have some peripheral edema persisting No Wheezing or breathing issues No abdominal pain nausea vomiting diarrhea No burning urine urine frequency or changes in color No focal joint pain or muscle pain No skin rashes or oral lesions No unusual bruising or bleeding No focused back pain or numbness or loss of strength No changes in memory or confusion Physical Exam Physical Exam: The patient appeared chronically ill Vital signs as documented. Head exam is unremarkable. normocephalic, atraumatic Neck is with minimal jugular venous distension, thyromegaly, or lymphademopathy Lungs diminished at the bases Cardiac exam reveals Rhythm is regular. Systolic ejection murmur Abdominal exam reveals normal bowel sounds, no masses, no organomegaly Extremities are mildly edematous and both pedal pulses are diminished Neurologic exam is A&Ox3, peripheral neuropathy, strength is equal bilateral Psychologically seems depressed Skin is warm / Dry Results & Data Vital Signs (Past 12 Hours) Vital Signs Temp Pulse Pulse Pulse Resp BP BP 10/23/18 05:12 72 128/71 10/23/18 03:23 36.9 C 75 16 168/87 H 10/23/18 02:06 176/87 H 10/23/18 00:00 79 10/22/18 23:49 80 10/22/18 23:34 37.0 C 78 18 168/87 H Pulse Ox 10/23/18 05:12 10/23/18 03:23 93 10/23/18 02:06 10/23/18 00:00 10/22/18 23:49 10/22/18 23:34 90 (1) Anemia Anemia type: unspecified type Qualified Code(s): D64.9 - Anemia, unspecified
[2018-10-23] MEDS: SERTRALINE HCL 100 MG TABLET PO SCH (08:40)
[2018-10-23] MEDS: FUROSEMIDE 80 MG in SYRINGE 0 ML IV SCH ×2 (08:40→19:58)
[2018-10-23] MEDS: HEPARIN SOD 5,000 UNIT/0.5 ML VIAL SQ SCH ×2 (08:40→19:58)
[2018-10-23] MEDS: INSULIN GLARGINE SOLOSTAR 100 UNITS/ML 3 ML PEN SC SCH (08:41)
[2018-10-23] MEDS: METOPROLOL TARTRATE 50 MG TAB PO SCH ×2 (08:41→19:59)
[2018-10-23] MEDS: INSULIN ASPART 100 UNITS/ML 3 ML PEN SC SCH ×4 (08:42→19:59)
--- NOTE | 2018-10-23 09:44 | Nephrology Progress Note ---
Date of Service October 23, 2018 Assessment & Plan (1) CKD (chronic kidney disease) stage 5, GFR less than 15 ml/min: Patient with CKD stage V due to diabetic nephropathy. He has progressively worsening renal function now complicated with volume overload. Patient is likely going to be end-stage renal disease. His electrolytes acceptable today and no indication for urgent dialysis. He will likely need dialysis in the next couple of days. We will continue Lasix for volume management. He will need a tunneled dialysis catheter sometime next week. I discussed dialysis modalities and he is agreeable to in center hemodialysis. Patient has been resistant to dialysis in the outpatient and has no dialysis access planned. Monitor renal function with daily BMP and strict input output (2) Anemia: Patient with anemia of renal disease. Hemoglobin is 9 today. Will check iron studies. He might require iron supplements and FLOR. (3) CHF (congestive heart failure): Patient with volume overload due to CHF and renal failure. He will continue IV Lasix. I am reducing the dose to Lasix 80 mg twice daily. We will aim to make him -1 to 2 L daily. Monitor daily weight. (4) Hypertension: His blood pressure is above target today. Will increase hydralazine to 50 mg 3 times daily Subjective Patient is a 48-year-old male with type 1 diabetes with diabetic nephropathy was admitted with confusion and volume overload in setting of worsening renal function. He is responding well to IV diuresis but creatinine is up trending to 6.25 today. He reports improvement in his breathing reporting only shortness of breath with exertion. He has no leg swelling. No confusion. He reports good appetite, no vomiting or diarrhea. Review of Systems Review of Systems: All systems reviewed & are unremarkable except as noted in HPI & below Physical Exam Physical Exam: General exam: Appears comfortable, no acute distress HEENT: Pupils are equal and reactive to light Neck: No JVD, neck is supple trachea is midline Respiratory system: Crackles in the bases bilaterally. Gastrointestinal: Abdomen is soft, non distended, non tender, bowel sounds are present CVS: Regular rate and rhythm. No murmurs, rubs or gallops Musculoskeletal: No joint or muscle tenderness Extremities: Non tender, no edema, peripheral pulses are present Neuro: Oriented x3, no tremors, no focal neurological deficits Skin: No rashes Results & Data Vital Signs (Past 12 Hours) Vital Signs Temp Pulse Pulse Pulse Resp BP BP 10/23/18 07:50 36.5 C 75 18 182/90 H 10/23/18 05:12 72 128/71 10/23/18 03:23 36.9 C 75 16 168/87 H 10/23/18 02:06 176/87 H 10/23/18 00:00 79 10/22/18 23:49 80 10/22/18 23:34 37.0 C 78 18 168/87 H Pulse Ox 10/23/18 07:50 95 10/23/18 05:12 10/23/18 03:23 93 10/23/18 02:06 10/23/18 00:00 10/22/18 23:49 10/22/18 23:34 90 Laboratory Results Laboratory Results - last 24 hr 10/22/18 10/22/18 10/22/18 11:29 17:34 20:20 WBC RBC Hgb Hct MCV MCH MCHC RDW Std Deviation RDW Coeff of Kami Plt Count MPV Immature Gran % (Auto) Neut % (Auto) Lymph % (Auto) Ector % (Auto) Eos % (Auto) Baso % (Auto) Immature Gran # (Auto) Neut # (Auto) Lymph # (Auto) Ector # (Auto) Eos # (Auto) Baso # (Auto) PT INR APTT PTT Ratio Sodium Potassium Chloride Carbon Dioxide Anion Gap BUN Creatinine Est Cr Clr Drug Dosing Est GFR ( Amer) Est GFR (Non-Af Amer) BUN/Creatinine Ratio Glucose POC Glucose 145 H 186 H 140 H Calcium Phosphorus Magnesium Total Bilirubin Direct Bilirubin AST ALT Alkaline Phosphatase Total Protein Albumin Lipase 10/23/18 10/23/18 10/23/18 02:04 04:56 06:23 WBC 9.82 RBC 3.00 L Hgb 9.0 L Hct 26.2 L MCV 87.3 MCH 30.0 MCHC 34.4 RDW Std Deviation 45.6 RDW Coeff of Kami 14.3 Plt Count 328 MPV 8.2 Immature Gran % (Auto) 0.4 Neut % (Auto) 67.5 Lymph % (Auto) 13.1 Ector % (Auto) 15.4 Eos % (Auto) 3.1 Baso % (Auto) 0.5 Immature Gran # (Auto) 0.04 H Neut # (Auto) 6.63 H Lymph # (Auto) 1.29 Ector # (Auto) 1.51 H Eos # (Auto) 0.30 Baso # (Auto) 0.05 PT INR APTT PTT Ratio Sodium Potassium Chloride Carbon Dioxide Anion Gap BUN Creatinine Est Cr Clr Drug Dosing Est GFR ( Amer) Est GFR (Non-Af Amer) BUN/Creatinine Ratio Glucose POC Glucose 322 H* 220 H Calcium Phosphorus Magnesium Total Bilirubin Direct Bilirubin AST ALT Alkaline Phosphatase Total Protein Albumin Lipase 10/23/18 10/23/18 10/23/18 06:23 06:23 07:22 WBC RBC Hgb Hct MCV MCH MCHC RDW Std Deviation RDW Coeff of Kami Plt Count MPV Immature Gran % (Auto) Neut % (Auto) Lymph % (Auto) Ector % (Auto) Eos % (Auto) Baso % (Auto) Immature Gran # (Auto) Neut # (Auto) Lymph # (Auto) Ector # (Auto) Eos # (Auto) Baso # (Auto) PT 10.1 INR 1.0 APTT 27.1 PTT Ratio 1.0 Sodium 135 L Potassium 3.6 Chloride 97 L Carbon Dioxide 28 Anion Gap 10.0 BUN 99 H Creatinine 6.25 H* D Est Cr Clr Drug Dosing 13.5 Est GFR ( Amer) 11.2 Est GFR (Non-Af Amer) 9.7 BUN/Creatinine Ratio 15.6 Glucose 204 H POC Glucose 248 H Calcium 7.7 L Phosphorus 6.1 H Magnesium 2.4 Total Bilirubin 0.2 Direct Bilirubin < 0.1 AST 15 ALT 38 Alkaline Phosphatase 114 Total Protein 5.8 L Albumin 2.3 L Lipase 248 (1) Anemia Anemia type: unspecified type Qualified Code(s): D64.9 - Anemia, unspecified (2) CHF (congestive heart failure) Heart failure chronicity: acute Heart failure type: unspecified Qualified Code(s): I50.9 - Heart failure, unspecified
--- NOTE | 2018-10-23 14:36 | Pharmacy Report ---
Pharmacy Glycemic Short Note 2 - Date of Service October 23, 2018 - Glycemic Short BSG Results (Last 24 hours): 10/22/18 10/22/18 10/23/18 17:34 20:20 02:04 Glucose POC Glucose 186 H 140 H 322 H* 10/23/18 10/23/18 10/23/18 04:56 06:23 07:22 Glucose 204 H POC Glucose 220 H 248 H 10/23/18 11:27 Glucose POC Glucose 309 H* OUTPATIENT ANTIDIABETIC REGIMEN: * Humalog insulin pump * Basal rates: 0000 0.5units/hr; 0300 0.6units/hr; 0700 1 unit/hr * Correction factor: 35mg/dL/unit * Carb coverage: 1 unit per 10 gm CHO from 7004-8819, then 1 unit per 7gm CHO from 4872-3006 * A1c = 6.5% on 10/21/18 ASSESSMENT: * Mr. De Los Santos is known to the pharmacy glycemic service from previous admissions. FBS this AM was 220mg/dL and lunch BSG of 309mg/dL. He had some concerning lows on 10/21 and insulin orders were subsequently loosened on 10/22. Today's hyperglycemic FBS partially attributable to yesterday's reduction in metabolic coverage. * I did tighten up his correctional insulin but I hesitate to make too many changes due to the brittle nature of his type 1 diabetes. PLAN FOR INPATIENT GLYCEMIC CONTROL: * Basal insulin - Lantus 12 units x1 now then ongoing qAM based on BSG * 10 units for BSG less than 80 mg/dL * 12 units for BSG 80-160 mg/dL * 14 units for BSG greater than 160 mg/dL * Bolus insulin * NovoLog per scale ACHS or Q6hrs while NPO and one overnight check * Goal Range: Low 120 mg/dL - High 150 mg/dL * Correction Factor: 30 mg/dL/unit * Nutritional / Prandial insulin per carb ratio of 1 unit per 10 grams CHO consumed PLAN FOR DISCHARGE: * May resume insulin pump on discharge
[2018-10-23] MEDS: ONDANSETRON INJ 2 MG/ML 2 ML VIAL IV PRN (16:38)
[2018-10-23] MEDS ORDERED: ONDANSETRON INJ 2 MG/ML 2 ML VIAL IV STA (19:48)
[2018-10-24] MEDS: METOPROLOL TARTRATE 1 MG/ML VIAL IV PRN (00:54)
[2018-10-24 09:58] LABS: BUN Creatinine Ratio 15.9 (10-20); Creatinine Clr Calc Pharmacy 12.8 ml/min; Est GFR (African American) 10.9; Est GFR (Non-African American) 9.4; Potassium 4.1 mmol/L (3.5-5.1)
[2018-10-24] MEDS: INSULIN ASPART 100 UNITS/ML 3 ML PEN SC SCH ×4 (10:06→20:38)
[2018-10-24] MEDS: METOPROLOL TARTRATE 50 MG TAB PO SCH (10:07)
[2018-10-24] MEDS: SERTRALINE HCL 100 MG TABLET PO SCH (10:07)
[2018-10-24] MEDS: AMLODIPINE BESYLATE 5 MG TAB PO SCH (10:07)
[2018-10-24] MEDS: INSULIN GLARGINE SOLOSTAR 100 UNITS/ML 3 ML PEN SC SCH (10:07)
[2018-10-24] MEDS: FUROSEMIDE 80 MG in SYRINGE 0 ML IV SCH (10:08)
[2018-10-24] MEDS: HEPARIN SOD 5,000 UNIT/0.5 ML VIAL SQ SCH ×2 (10:08→20:36)
[2018-10-24 10:13] LABS: Beta-Hydroxybutyrate 14.65 mg/dl (0.2-2.81)
--- NOTE | 2018-10-24 11:54 | Nephrology Progress Note ---
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 He has progressively worsening renal function now complicated with volume overload. Patient is likely going to be end-stage renal disease. His electrolytes acceptable today and no indication for urgent dialysis. He will likely need dialysis in the next couple of days. We will reduce Lasix to 40 mg IV twice daily. He will need a tunneled dialysis catheter sometime next week. I discussed dialysis modalities and he is agreeable to in center hemodialysis. Patient has been resistant to dialysis in the outpatient and has no dialysis access planned. Monitor renal function with daily BMP and strict input output (2) Anemia: Patient with anemia of renal disease. Hemoglobin of 9 recently. check iron studies. He might require iron supplements and FLOR. (3) CHF (congestive heart failure): Patient with volume overload due to CHF and renal failure. He will continue IV Lasix. I am reducing the dose to Lasix 40 mg twice daily. We will aim to make him -1 to 2 L daily. Monitor daily weight. (4) Hypertension: His blood pressure is above target today. Will stop metoprolol and start Coreg 12.5 mg twice daily. Continue amlodipine 10 mg daily and hydralazine to 50 mg 3 times daily Subjective Patient with the CKD stage V seen in follow-up. He is complaining of fatigue. He had nausea yesterday but no vomiting today. No shortness of breath. He continues to diurese well and was net -2 L yesterday. Creatinine and BUN uptrending Review of Systems Review of Systems: All systems reviewed & are unremarkable except as noted in HPI & below Physical Exam Physical Exam: General exam: Appears comfortable, no acute distress HEENT: Pupils are equal and reactive to light Neck: No JVD, neck is supple trachea is midline Respiratory system: Clear breath sounds bilaterally. Gastrointestinal: Abdomen is soft, non distended, non tender, bowel sounds are present CVS: Regular rate and rhythm. No murmurs, rubs or gallops Musculoskeletal: No joint or muscle tenderness Extremities: Non tender, no edema, peripheral pulses are present Neuro: Oriented, has mild asterixis, no focal neurological deficits Skin: No rashes Results & Data Vital Signs (Past 12 Hours) Vital Signs Temp Pulse Pulse Pulse Resp BP BP 10/24/18 11:19 36.6 C 73 18 153/87 H 10/24/18 08:00 69 10/24/18 07:21 36.9 C 71 18 180/89 H 10/24/18 06:42 68 147/86 H 10/24/18 04:00 36.4 C L 70 16 166/88 H 10/24/18 00:54 75 10/24/18 00:52 176/85 H 10/24/18 00:00 77 Pulse Ox 10/24/18 11:19 90 10/24/18 08:00 10/24/18 07:21 91 10/24/18 06:42 10/24/18 04:00 94 10/24/18 00:54 10/24/18 00:52 10/24/18 00:00 Laboratory Results Laboratory Results - last 24 hr 10/21/18 10/23/18 10/23/18 00:49 16:18 19:32 Sodium Potassium Chloride Carbon Dioxide Anion Gap BUN Creatinine Est Cr Clr Drug Dosing Est GFR ( Amer) Est GFR (Non-Af Amer) BUN/Creatinine Ratio Glucose POC Glucose 78 101 H Calcium Beta-Hydroxybutyric Acd Crossmatch See Detail 10/23/18 10/24/18 10/24/18 23:39 07:19 09:14 Sodium 136 Potassium 4.1 Chloride 97 L Carbon Dioxide 28 Anion Gap 11.0 BUN 102 H Creatinine 6.40 H* Est Cr Clr Drug Dosing 12.8 Est GFR ( Amer) 10.9 Est GFR (Non-Af Amer) 9.4 BUN/Creatinine Ratio 15.9 Glucose 308 H* POC Glucose 158 H 269 H Calcium 8.0 L Beta-Hydroxybutyric Acd 14.65 H Crossmatch 10/24/18 11:27 Sodium Potassium Chloride Carbon Dioxide Anion Gap BUN Creatinine Est Cr Clr Drug Dosing Est GFR ( Amer) Est GFR (Non-Af Amer) BUN/Creatinine Ratio Glucose POC Glucose 372 H* Calcium Beta-Hydroxybutyric Acd Crossmatch (1) Anemia Anemia type: unspecified type Qualified Code(s): D64.9 - Anemia, unspecified (2) CHF (congestive heart failure) Heart failure chronicity: acute Heart failure type: unspecified Qualified Code(s): I50.9 - Heart failure, unspecified
[2018-10-24] MEDS: CARVEDILOL 12.5 MG TAB PO SCH ×2 (12:48→20:31)
--- NOTE | 2018-10-24 13:48 | Pharmacy Report ---
Pharmacy Glycemic Short Note 2 - Date of Service October 24, 2018 - Glycemic Short BSG Results (Last 24 hours): 10/23/18 10/23/18 10/23/18 16:18 19:32 23:39 Glucose POC Glucose 78 101 H 158 H 10/24/18 10/24/18 10/24/18 07:19 09:14 11:27 Glucose 308 H* POC Glucose 269 H 372 H* OUTPATIENT ANTIDIABETIC REGIMEN: * Humalog insulin pump * Basal rates: 0000 0.5units/hr; 0300 0.6units/hr; 0700 1 unit/hr * Correction factor: 35mg/dL/unit * Carb coverage: 1 unit per 10 gm CHO from 9372-6856, then 1 unit per 7gm CHO from 3786-0021 * A1c = 6.5% on 10/21/18 ASSESSMENT: * AM hyperglycemia trend continues. Yesterday he required 35 units of insulin. BSGs ranging from 78 - 372mg/dL over the previous 24 hrs. In an effort to mitigate AM and lunch hyperglycemia, I will trial with a small dose of lantus this evening. His type 1 diabetes if very brittle. Will ere on the side of conservatism. PLAN FOR INPATIENT GLYCEMIC CONTROL: * Basal insulin QAM * 10 units for BSG less than 80 mg/dL * 12 units for BSG 80-160 mg/dL * 14 units for BSG greater than 160 mg/dL * Lantus 4 units HS x1 * Bolus insulin * NovoLog per scale ACHS or Q6hrs while NPO and one overnight check * Goal Range: Low 120 mg/dL - High 150 mg/dL * Correction Factor: 30 mg/dL/unit * Nutritional / Prandial insulin per carb ratio of 1 unit per 10 grams CHO consumed PLAN FOR DISCHARGE: * May resume insulin pump on discharge
--- NOTE | 2018-10-24 13:51 | Hospitalist Progress Note ---
Date of Service October 24, 2018 Assessment & Plan (1) Acute worsening of stage 4 chronic kidney disease: Patient continues with good diuresis and reduction of his insulin, he previous has had a therapeutic thoracentesis on the left lung revealed 1300 mL's of fluid. The patient has no postprocedural pneumothorax The pulmonary edema is not felt to be cardiogenic but likely from renal failure Nephrology is reduce his Lasix once again from 80 twice daily to 40 twice daily, and their note they are discussing beginning renal replacement therapy this week and on wednesday 10/25 evaluation for vascular access BUN and Cr remain markedly elevated but no hyperkalemia or acidemia (2) Hypertension: has had his hydralazine increased and added amlodipine Hydralazine and has been escalated to 50 3 times daily and nephrology is converted from metoprolol to carvedilol in hopes of having better systemic blood pressure effect Will also have available Lopressor 5 mg IV every 4 hours as needed systolic blood pressure greater than 160 (3) Anemia: Hemoglobin was decreased to 7.3, with recent hemoglobins being in the range of 8.3-9.2. Transfuse 1 unit packed red blood cells, hgb has stabilized Nephrology is considering iron supplementation and evaluation of erythropoietin (4) Hypoxia: Continues to be improved with diuresis (5) Type I diabetes mellitus: His diabetes has been very brittle. undergo glycemic pharmacologic management. Glucoses have been elevated I personally called pharmacy and we are discussing the appropriate treatment course Has been hypoglycemic despite holding his usual diabetic medications. Patient is required dextrose infusions to support his hypoglycemia (6) Depression: pt does have a very flat affect, starting dialysis may exacerbate this have discussed treatment his depression more aggressively (7) DVT prophylaxis: heparin sc Results & Data Vital Signs (Past 12 Hours) Vital Signs Temp Pulse Pulse Pulse Resp BP BP 10/24/18 11:19 36.6 C 73 18 153/87 H 10/24/18 08:00 69 10/24/18 07:21 36.9 C 71 18 180/89 H 10/24/18 06:42 68 147/86 H 10/24/18 04:00 36.4 C L 70 16 166/88 H Pulse Ox 10/24/18 11:19 90 10/24/18 08:00 10/24/18 07:21 91 10/24/18 06:42 10/24/18 04:00 94 (1) Anemia Anemia type: unspecified type Qualified Code(s): D64.9 - Anemia, unspecified
[2018-10-24] MEDS: FUROSEMIDE 40 MG in SYRINGE 0 ML IV SCH (17:57)
[2018-10-24] MEDS: CARBOHYDRATES FOR HYPOGLYCEMIA PO PRN ×2 (20:35→20:52)
[2018-10-24] MEDS ORDERED: INSULIN GLARGINE SOLOSTAR 100 UNITS/ML 3 ML PEN SC ONE (21:00)
[2018-10-24] MEDS: DEXTROSE 50% 50 ML SYRINGE IV PRN (21:16)
[2018-10-25 07:27] LABS: BUN Creatinine Ratio 15.9 (10-20); Calcium 7.7 mg/dl (8.5-10.1); Creatinine Clr Calc Pharmacy 12.8 ml/min; Est GFR (African American) 10.6; Est GFR (Non-African American) 9.1; Potassium 4.3 mmol/L (3.5-5.1)
--- NOTE | 2018-10-25 08:49 | Nephrology Progress Note ---
Date of Service October 25, 2018 Assessment & Plan (1) CKD (chronic kidney disease) stage 5, GFR less than 15 ml/min: CKD stage V due to diabetic nephropathy; now ESRD w/ complications of volume overload and failure to thrive/ multiple admissions here/ pt historically not doing OP follow up at previous admissions. s/p thoracentesis earlier this admission w/ transudative effusion from renal failure/ vol OL. While there is no indication for emergent dialysis, he needs to start treatment > recommend working this admission toward setting him up for outpt dialysis and initiating therapy. Given challenges of OP f/u and self care, not an immediate PD candidate though that could be discussed as OP. my partner has discussed dialysis w/ pt who is agreeable to incenter HD. -needs tunnelled dialysis catheter; unfortunately we have no ability to place TDC here d/t staffing issues; will d/w hospitalist whether pt can be transferred for same day procedure (prefer [facility] [place] [facility] or could consider [facility] or [facility]) then return here for initial txs. Alternative would be simply to transfer to OSH, initiate dialysis there after tdc placement and d/c home; or to arrange OP TDC this week > he has not done follow through on prior admissions however and I have concerns this OP plan will more likley lead to readmission. -chemistries, volume status, anemia, BP all acceptable for now -cont daily bmp -cont strict I/0 >>after d/w Dr Townsend, plan tentatively for transfer to [facility], TDC placement and initiation of chronic dialysis, then d/c home to start OP HD at [facility] (2) Anemia: Patient with anemia of ESRD. Hemoglobin of 9 on 10/23. -ordered transferrin sat and repeat hgb for am as he may require iron supplements and FLOR. (3) Hypertension: His blood pressure is improving and for now acceptable on lasix 40 mg iv bid, amlodipine 10 mg daily, coreg 12.5 mg daily, hydralazine 50 mg tid >> cont same Subjective seen on rounds this am 0900; no c/o fatigue, sob, chest or abdominal discomfort or swelling; no voiding concerns. remains willing to start chronic ICHD> rationale for this -- ESRD now w/ vol OL -- explained. lives w/ his parents. Review of Systems Review of Systems: All systems reviewed & are unremarkable except as noted in HPI & below Physical Exam Constitutional: well developed and well nourished on RA, maneuvers readily for exam Eyes: EOM intact bilaterally ENMT: Ears: no external ear abnormality Nose: no external nose abnormality Mouth: + dry oral mucous membranes Neck: no nuchal rigidity Respiratory: normal respiratory effort Auscultation: + diminished lung sounds (silvino on R lung garcia) and + crackles (L lung garcia) Cardiovascular: RRR, no murmur, no edema Gastrointestinal (Abdomen): Inspection/Auscultation: normal bowel sounds Percussion/Palpation: abdomen soft; abdomen nontender Musculoskeletal: Extremities: strength 5/5 throughout spicer, fluent speech Skin: no rashes, warm and dry Neurologic: spicer, fluent speech, no tremor Psychiatric: Orientation: alert and oriented x 3 Eye Contact: good eye contact Speech: normal rate/rhythm/volume of speech Affect: + flat affect Genitourinary: parker w/ ample urine Results & Data Vital Signs (Past 12 Hours) Vital Signs Temp Pulse Pulse Resp BP Pulse Ox 10/25/18 07:16 37.2 C 76 14 147/74 H 92 10/25/18 03:41 36.9 C 69 16 119/61 95 10/25/18 00:00 63 10/24/18 23:57 36.4 C L 65 16 149/80 H 94 (1) Anemia Anemia type: unspecified type Qualified Code(s): D64.9 - Anemia, unspecified (2) Hypertension Hypertension type: essential hypertension Qualified Code(s): I10 - Essential (primary) hypertension
[2018-10-25] MEDS: CARVEDILOL 12.5 MG TAB PO SCH ×2 (09:01→21:13)
[2018-10-25] MEDS: FUROSEMIDE 40 MG in SYRINGE 0 ML IV SCH ×2 (09:01→17:06)
[2018-10-25] MEDS: HEPARIN SOD 5,000 UNIT/0.5 ML VIAL SQ SCH ×2 (09:02→21:13)
[2018-10-25] MEDS: AMLODIPINE BESYLATE 5 MG TAB PO SCH (09:02)
[2018-10-25] MEDS: SERTRALINE HCL 100 MG TABLET PO SCH (09:02)
[2018-10-25] MEDS: INSULIN GLARGINE SOLOSTAR 100 UNITS/ML 3 ML PEN SC SCH (09:03)
[2018-10-25] MEDS: INSULIN ASPART 100 UNITS/ML 3 ML PEN SC SCH ×4 (09:03→21:13)
--- NOTE | 2018-10-25 14:35 | Pharmacy Report ---
Glycemic Control Progress Note - Date of Service October 25, 2018 - Scope Glycemic Pharmacist consulted for glycemic control to write orders per [facility] inpatient glycemic control protocol. - Objective Accuchecks BSG(last 24 hours):: 10/24/18 10/24/18 10/24/18 16:21 20:31 20:36 Glucose POC Glucose 121 H 38 L* 35 L* 10/24/18 10/24/18 10/24/18 20:52 21:06 21:31 Glucose POC Glucose 50 L* 53 L* 114 H 10/24/18 10/25/18 10/25/18 23:55 04:08 06:30 Glucose 233 H POC Glucose 124 H 213 H 10/25/18 10/25/18 10/25/18 07:21 11:29 11:32 Glucose POC Glucose 284 H 308 H* 303 H* HbA1c:: 6.5 % (4.5-5.6) H 10/21/18 04:39 - Recent Pertinent Medications The patient is currently receiving: * Basal insulin: Lantus 14 units every 24 hours * Correctional Insulin: Novolog Correction per scale ACHS Goal Range: Low 120 mg/dL - High 150 mg/dL Correction Factor: 25 mg/dL/unit * Prandial insulin: Per carb ratio of 1 unit per 10 grams CHO consumed - Outpatient Anti-Diabetic Meds Humalog insulin pump (~21 units of basal per day) CF = 35 CR = 1:10 (midnight-0700); 1: 7 (11- midnight) - Assessment & Plan ASSESSMENT: * See progress note from 10/21/18 for more background info, in short: * Pt receiving SQ basal bolus insulin regimen for hyperglycemia secondary to baseline DM (outpatient regimen on hold). * Patient is currently receiving an average of 43 units of insulin per day * 14 units of basal insulin * 29 units of prandial/correctional insulin * BSGs ranging 38 - 372 mg/dl over the past 24hrs * Changes needed to insulin regimen: * AM Fasting BSG = 233 mg/dl. This is above goal range for patient based on inpatient targets and co-morbidities. The patient trends downwards throughout the day and then upwards during the night. Estimate that patient may benefit from twice daily Lantus dosing... Will give 10 units this morning and then 4 units at dinner. This will hopefully allow Lantus to have a more steady effect. * Post-prandial BSGs trend everywhere. Will continue this current regimen as it has worked in the past. Will establish a 10 unit / meal maximum. This should help prevent stacking. * Total daily dose = 30-40 units. PLAN FOR INPATIENT GLYCEMIC CONTROL: * Changing Lantus to 10 units in the morning and 4 units in the evening * Continuing correction factor of 25 mg/dl/unit * Continuing carb ratio of 1 unit per 10 grams CHO consumed * Continuing goal range of Low 120 mg/dL - High 150 mg/dL * Please note that the plan above was derived based on current level of insulin resistance and hospital stress. These recommendations are appropriate for inpatient admission only. Plan of care upon discharge will need to be reassessed to avoid potential outpatient hypo/hyperglycemia. Thank you.
[2018-10-25] MEDS ORDERED: INSULIN GLARGINE SOLOSTAR 100 UNITS/ML 3 ML PEN SC SCH (16:30)
--- NOTE | 2018-10-25 20:43 | Hospitalist Progress Note ---
Date of Service October 25, 2018 Assessment & Plan (1) ESRD (end stage renal disease): Patient has had progressive worsening of his baseline CKD and now BUN is about 100 and Cr is 6.5. He has been followed by [facility] closely this admission and on previous admissions. He presented with volume overload/anasarca along with mild hyperkalemia earlier this stay. Fortunately he has diuresed enough over the last 5-6 days to improve his volume status (net negative 10 liters). He also underwent thoracentesis yielding 1300cc of transudative fluid. Despite his volume status improvement the nephrology team is now categorizing him as ESRD. Thus, dialysis catheter placement is needed along with initiation of HD to avoid volume overload again. Unfortunately Dr Henry is not available to place this catheter and no other surgeon on staff performs this procedure. I called and spoke with IR at [facility] in [place] and they advised this procedure via their IR staff at [facility]. After multiple calls to [facility] (speaking with their lead hospitalist, radiology staff, and others) we have Mr De Los Santos on the schedule for Thursday at approximately 10-11am. [facility] remain admitted to [facility], transfer to Center for his catheter placement, and then return to [facility] as an inpatient. I spoke with the clinical supervisor shop who will set up transportation for the morning. He will need to leave early tomorrow AM in order to be there on time for his procedure. Total time spent over 5-10 different phone calls today -- at least [address] Higgins of the nephrology team kept abreast of the above. Repeat BMP in am. (2) Acute worsening of stage 4 chronic kidney disease: baseline Cr high 3's/low 4's now with BUN of about 100 and Cr about 6.5 see "ESRD" above Present on Admission?: Yes (3) Volume overload: on the basis of worsening CKD and development of ESRD rather than CHF volume status improved see "ESRD" above Present on Admission?: Yes (4) Chronic systolic (congestive) heart failure: EF 45-50% on echo this admission. EF was 55-60% on echo in August of this year. This may be due to ischemic cardiomyopathy as there are now regional wall motion abnormalities. He will need cardiology follow-up for this. Continue coreg. Should be on aspirin therapy in light of wall motion abnormalities. (5) Gastroparesis: resume erythromycin during the stay Present on Admission?: Yes (6) Anemia: defer iron therapy to nephrology H/H acceptable Present on Admission?: Yes (7) Depression: continue SSRI numerous stressors last over the last year -- divorce, move from [place] hometown of [place] to [place], worsening health status, etc Present on Admission?: Yes (8) Type I diabetes mellitus: appreciate pharmacy glycemic control consultation & management defer to their team consider checking cortisol during the stay to r/o haylie's (9) Hypertension: continue home medications controlled Present on Admission?: Yes (10) DVT prophylaxis: heparin SC, but hold tomorrow AM's dose due to procedure. father updated at bedside today total time today over several visits to patient, NUMEROUS phone calls and care coordination, etc -- 90 minutes Subjective tele stable overnight. patient sleeping upon my arrival. after waking him up he denied any complaints other than being fatigued. he understands the situation surrounding his kidneys and is agreeable to proceeding with permcath placement for ESRD. denies any dyspnea this am, abd pain, nausea, vomiting. reports that during the recent visit to motility clinic in [place] he was placed on erythromycin for gastroparesis. multiple calls today to [facility] and [facility] to coordinate placement of dialysis catheter tomorrow. Review of Systems Constitutional: no fever Respiratory: no cough and no dyspnea Cardiovascular: no chest pain Gastrointestinal: no abdominal pain, no nausea and no vomiting Physical Exam Constitutional: no acute distress, not ill appearing and no altered mental status ENMT: external ear and nose normal, oropharynx normal Respiratory: no respiratory distress Auscultation: + diminished lung sounds (bases); no crackles, no rhonchi and no wheezes Cardiovascular: Rate/Rhythm: regular rate and regular rhythm Heart Sounds: normal S1 and normal S2; no murmur Vessels: posterior tibial pulses present and dorsalis pedis pulses present; no JVD Gastrointestinal (Abdomen): normal bowel sounds, soft, nontender, no hepatosplenomegaly Psychiatric: Orientation: alert and oriented x 3 Mood: + depressed mood Results & Data Vital Signs (Past 12 Hours) Vital Signs Temp Pulse Pulse Pulse Resp BP Pulse Ox 10/25/18 19:48 37.5 C 71 18 124/69 95 10/25/18 16:00 36.8 C 72 73 18 142/76 H 93 10/25/18 15:15 36.4 C L 75 18 139/78 95 10/25/18 11:27 37.4 C 74 16 164/82 H 94 Laboratory Results Laboratory Results - last 24 hr 10/25/18 10/25/18 10/25/18 06:30 07:21 11:29 Sodium 132 L Potassium 4.3 Chloride 93 L Carbon Dioxide 27 Anion Gap 12.0 H BUN 102 H Creatinine 6.55 H* Est Cr Clr Drug Dosing 12.8 Est GFR ( Amer) 10.6 Est GFR (Non-Af Amer) 9.1 BUN/Creatinine Ratio 15.9 Glucose 233 H POC Glucose 284 H 308 H* Calcium 7.7 L Iron 96 TIBC 202 L 10/25/18 10/25/18 10/25/18 11:32 16:15 20:14 Sodium Potassium Chloride Carbon Dioxide Anion Gap BUN Creatinine Est Cr Clr Drug Dosing Est GFR ( Amer) Est GFR (Non-Af Amer) BUN/Creatinine Ratio Glucose POC Glucose 303 H* 132 H 95 Calcium Iron TIBC 10/25/18 10/26/18 23:40 02:39 Sodium Potassium Chloride Carbon Dioxide Anion Gap BUN Creatinine Est Cr Clr Drug Dosing Est GFR ( Amer) Est GFR (Non-Af Amer) BUN/Creatinine Ratio Glucose POC Glucose 95 145 H Calcium Iron TIBC (1) Volume overload Hypervolemia type: unspecified Qualified Code(s): E87.70 - Fluid overload, unspecified (2) Anemia Anemia type: unspecified type Qualified Code(s): D64.9 - Anemia, unspecified (3) Depression Depression Type: other depression Qualified Code(s): F32.89 - Other specified depressive episodes (4) Type I diabetes mellitus Diabetes mellitus complication status: with kidney complications Diabetes mellitus complication detail: with chronic kidney disease Chronic kidney disease stage: stage 4 (severe) Qualified Code(s): E10.22 - Type 1 diabetes mellitus with diabetic chronic kidney disease; N18.4 - Chronic kidney disease, stage 4 (severe) (5) Hypertension Hypertension type: essential hypertension Qualified Code(s): I10 - Essential (primary) hypertension
[2018-10-25] MEDS: ONDANSETRON INJ 2 MG/ML 2 ML VIAL IV PRN (21:22)
[2018-10-26 07:36] LABS: Hematocrit (blood only) 26.1 % (42-52); Hemoglobin 8.9 g/dL (14.0-18.0); Mean Corpuscular Hgb Conc 34.1 g/dL (32-36); Mean Corpuscular Volume 88.2 fL (80-100); Mean Platelet Volume 8.5 fL (7.4-10.4); Platelet Count 329 K/uL (130-400); RDW Coefficient of Variation 13.9 % (11.5-14.5); RDW Standard Deviation 44.5 fL (36.4-46.3); Red Blood Count 2.96 M/uL (4.7-6.1); White Blood Count 10.41 K/uL (4.8-10.8)
[2018-10-26] MEDS: AMLODIPINE BESYLATE 5 MG TAB PO SCH (07:47)
[2018-10-26] MEDS: CARVEDILOL 12.5 MG TAB PO SCH ×2 (07:47→20:47)
[2018-10-26] MEDS: ONDANSETRON INJ 2 MG/ML 2 ML VIAL IV PRN (07:53)
[2018-10-26] MEDS: INSULIN GLARGINE SOLOSTAR 100 UNITS/ML 3 ML PEN SC SCH (07:54)
[2018-10-26] MEDS: FUROSEMIDE 40 MG in SYRINGE 0 ML IV SCH ×2 (07:54→20:47)
[2018-10-26] MEDS: INSULIN ASPART 100 UNITS/ML 3 ML PEN SC SCH ×4 (07:55→20:48)
[2018-10-26 08:22] LABS: BUN Creatinine Ratio 14.6 (10-20); Calcium 8.3 mg/dl (8.5-10.1); Est GFR (African American) 10.3; Est GFR (Non-African American) 8.9; Potassium 4.4 mmol/L (3.5-5.1)
--- NOTE | 2018-10-26 08:43 | Nephrology Progress Note ---
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 s/p thoracentesis earlier this admission w/ transudative effusion from renal failure/ vol OL. We are setting him up for outpt dialysis and initiating chronic dialysis therapy: he needs outpt dialysis access. Given challenges of OP f/u and self care and very symptomatic gastroparesis, not an immediate PD candidate though that could be discussed as OP. my partner has discussed dialysis w/ pt who is agreeable to [facility] HD. -for placement this am at [facility] of tunnelled dialysis catheter; unfortunately we have no ability to place TDC here d/t staffing issues and w/ adherence concerns not a candidate for OP procedure -chemistries, volume status, anemia, BP all acceptable for now -cont daily bmp -cont strict I/0 >>he is too ill right now w/ N / emesis to do HD consent > form is on chart and have instructed dialysis RNs to call me later in day so that pt and I can discuss by phone; note he has been in verbal agreement w/ me and multiple providers to start HD; will do consent when he feels well enough to discuss but before starting tx >plan first HD tx later this afternoon assuming he is back here by 1630 >plan 2 hr tx today, 3 hr tx tomorrow, ideally then start OP dialysis chronically at [facility] on 10/29>>pls have case mgt assist w/ this admissions process >>Dr Townsend's help much appreciated >plan after one successful tx here to start OP HD at [facility] (2) Anemia: Patient with anemia of ESRD. Hemoglobin of 9 on 10/23. -ordered transferrin sat and repeat hgb added to am labs as he may require iron supplements and FLOR. (3) Hypertension: His blood pressure is somewhat labile but overall acceptable on lasix 40 mg iv bid, amlodipine 10 mg daily, coreg 12.5 mg daily, hydralazine 50 mg tid >> cont same; will look to scale back bp meds as we start dialysis Subjective severe N and some anxiety this am. having emesis NBNB at time of my eval. denies sob, chest pain/palpitations, edema, constipation/abd pain, musc/skel pain, rash. Review of Systems Review of Systems: All systems reviewed & are unremarkable except as noted in HPI & below Genitourinary: no decreased urination Psychiatric: + anxiety Physical Exam Constitutional: well developed and well nourished lying flat on RA A& 0 x 3 but quite symptomatic w/ N and active emesis in interview Eyes: EOM intact bilaterally ENMT: Ears: no external ear abnormality Nose: no external nose abnormality Mouth: + dry oral mucous membranes Neck: no nuchal rigidity Respiratory: normal respiratory effort Auscultation: + diminished lung sounds Cardiovascular: RRR, no murmur, no edema Gastrointestinal (Abdomen): Inspection/Auscultation: normal bowel sounds Percussion/Palpation: abdomen soft; abdomen nontender Musculoskeletal: Extremities: strength 5/5 throughout Skin: no rashes, warm and dry Neurologic: spicer, fluent speech Psychiatric: Orientation: alert and oriented x 3 Eye Contact: good eye contact Speech: normal rate/rhythm/volume of speech Affect: + depressed affect, + anxious affect and + flat affect Genitourinary: parker present w/ scant urine Results & Data Vital Signs (Past 12 Hours) Vital Signs Temp Pulse Pulse Resp BP Pulse Ox 10/26/18 07:01 36.5 C 74 16 118/63 96 10/26/18 03:05 37.3 C 74 16 113/49 L 95 10/25/18 23:38 37.1 C 73 18 152/74 H 94 10/25/18 23:21 67 Laboratory Results Abnormal lab results 10/25/18 10/25/18 10/25/18 Range/Units 11:29 11:32 16:15 RBC (4.7-6.1) M/uL Hgb (14.0-18.0) g/dL Hct (42-52) % Sodium (136-145) mmol/L Chloride (98-107) mmol/L Anion Gap (3-11) BUN (7-18) mg/dl Creatinine (0.6-1.4) mg/dl Glucose (70-99) mg/dl POC Glucose 308 H* 303 H* 132 H (70-99) Calcium (8.5-10.1) mg/dl Transferrin (200-360) mg/dl Cortisol AM Sample (4.3-22.4) mcg/dl 10/26/18 10/26/18 10/26/18 Range/Units 02:39 07:05 07:05 RBC 2.96 L (4.7-6.1) M/uL Hgb 8.9 L (14.0-18.0) g/dL Hct 26.1 L (42-52) % Sodium 134 L (136-145) mmol/L Chloride 94 L (98-107) mmol/L Anion Gap 13.0 H (3-11) BUN 98 H (7-18) mg/dl Creatinine 6.70 H* (0.6-1.4) mg/dl Glucose 255 H (70-99) mg/dl POC Glucose 145 H (70-99) Calcium 8.3 L (8.5-10.1) mg/dl Transferrin (200-360) mg/dl Cortisol AM Sample (4.3-22.4) mcg/dl 10/26/18 10/26/18 10/26/18 Range/Units 07:05 07:05 07:36 RBC (4.7-6.1) M/uL Hgb (14.0-18.0) g/dL Hct (42-52) % Sodium (136-145) mmol/L Chloride (98-107) mmol/L Anion Gap (3-11) BUN (7-18) mg/dl Creatinine (0.6-1.4) mg/dl Glucose (70-99) mg/dl POC Glucose 308 H* (70-99) Calcium (8.5-10.1) mg/dl Transferrin 155 L (200-360) mg/dl Cortisol AM Sample 23.32 H (4.3-22.4) mcg/dl 10/26/18 Range/Units 07:38 RBC (4.7-6.1) M/uL Hgb (14.0-18.0) g/dL Hct (42-52) % Sodium (136-145) mmol/L Chloride (98-107) mmol/L Anion Gap (3-11) BUN (7-18) mg/dl Creatinine (0.6-1.4) mg/dl Glucose (70-99) mg/dl POC Glucose 294 H (70-99) Calcium (8.5-10.1) mg/dl Transferrin (200-360) mg/dl Cortisol AM Sample (4.3-22.4) mcg/dl (1) Anemia Anemia type: unspecified type Qualified Code(s): D64.9 - Anemia, unspecified (2) Hypertension Hypertension type: essential hypertension Qualified Code(s): I10 - Essential (primary) hypertension
[2018-10-26] MEDS ORDERED: DEXTROSE 5% 1,000 ML IV SCH (08:45)
[2018-10-26] MEDS ORDERED: METOCLOPRAMIDE HCL INJ 5 MG/ML 2 ML VIAL IV SCH (09:00)
[2018-10-26] MEDS ORDERED: EPOETIN ALFA 4,000 UNIT/ML VIAL IV SCH (09:00)
[2018-10-26 09:01] LABS: Iron 73 mcg/dl (35-175); Transferrin 155 mg/dl (200-360); Transferrin Percent Saturation 34 % (20-50)
[2018-10-26] MEDS ORDERED: SODIUM CHLORIDE 0.9% 1000ML 1,000 ML IV PRN (09:06)
--- NOTE | 2018-10-26 09:11 | Hospitalist Progress Note ---
Date of Service October 26, 2018 Assessment & Plan (1) ESRD (end stage renal disease): Patient has had progressive worsening of his baseline CKD and now BUN is about 100 and Cr is 6.7. He has been followed by [facility] closely this admission and on previous admissions. He presented with volume overload/anasarca along with mild hyperkalemia earlier this stay. Fortunately he has diuresed enough over the last 5-6 days to improve his volume status (net negative 10 liters). He also underwent thoracentesis yielding 1300cc of transudative fluid. Despite his volume status improvement the nephrology team is now categorizing him as ESRD. Thus, dialysis catheter placement is needed along with initiation of HD to avoid volume overload again. Patient to transfer to [facility] today for tunneled HD catheter placement by IR. He will then return to [facility] and receive his first HD session today. Appreciate Dr Higgins's assistance. (2) Acute worsening of stage 4 chronic kidney disease: baseline Cr high 3's/low 4's now with BUN of about 100 and Cr about 6.7 see "ESRD" above (3) Volume overload: on the basis of worsening CKD and development of ESRD rather than CHF volume status improved see "ESRD" above stop IV lasix since HD to be started today can d/c keith as well (4) Chronic systolic (congestive) heart failure: EF 45-50% on echo this admission. EF was 55-60% on echo in August of this year. This may be due to ischemic cardiomyopathy as there are now regional wall motion abnormalities. He will need cardiology follow-up for this. Continue coreg. Should be on aspirin therapy in light of wall motion abnormalities. (5) Gastroparesis: resume erythromycin today before meals (6) Anemia: defer iron therapy to nephrology H/H acceptable (7) Depression: continue SSRI numerous stressors last over the last year -- divorce, move from his hometown of [place] to [place], worsening health status, etc (8) Type I diabetes mellitus: appreciate pharmacy glycemic control consultation & management defer to their team cortisol level wnl STOP dextrose infusion after return from [place] (9) Hypertension: continue home medications controlled (10) DVT prophylaxis: heparin SC Subjective patient w/ nausea this am despite zofran thinks he is anxious about procedure today tele overnight normal no abd pain no dyspnea or orthopnea Review of Systems Constitutional: no fever Respiratory: no cough and no dyspnea Cardiovascular: no chest pain Gastrointestinal: no abdominal pain Physical Exam Constitutional: dry heaving during visit ENMT: external ear and nose normal, oropharynx normal Respiratory: no respiratory distress Auscultation: + diminished lung sounds (bases); no crackles, no rhonchi and no wheezes Cardiovascular: Rate/Rhythm: regular rate and regular rhythm Heart Sounds: normal S1 and normal S2; no murmur Vessels: posterior tibial pulses present and dorsalis pedis pulses present; no JVD Gastrointestinal (Abdomen): normal bowel sounds, soft, nontender, no hepatosplenomegaly Psychiatric: Orientation: alert and oriented x 3 Mood: + depressed mood Results & Data Vital Signs (Past 12 Hours) Vital Signs Temp Pulse Pulse Resp BP Pulse Ox 10/26/18 07:01 36.5 C 74 16 118/63 96 10/26/18 03:05 37.3 C 74 16 113/49 L 95 10/25/18 23:38 37.1 C 73 18 152/74 H 94 10/25/18 23:21 67 (1) Type I diabetes mellitus Chronic kidney disease stage: stage 4 (severe) Diabetes mellitus complication detail: with chronic kidney disease Diabetes mellitus complication status: with kidney complications Qualified Code(s): E10.22 - Type 1 diabetes mellitus with diabetic chronic kidney disease; N18.4 - Chronic kidney disease, stage 4 (severe) (2) Anemia Anemia type: unspecified type Qualified Code(s): D64.9 - Anemia, unspecified (3) Depression Depression Type: other depression Qualified Code(s): F32.89 - Other specified depressive episodes (4) Hypertension Hypertension type: essential hypertension Qualified Code(s): I10 - Essential (primary) hypertension (5) Volume overload Hypervolemia type: unspecified Qualified Code(s): E87.70 - Fluid overload, unspecified
[2018-10-26 13:15] LABS: Hepatitis B Surface Antibody Immune
[2018-10-26 13:26] LABS: Hepatitis B Surface Antigen Neg (Neg)
--- NOTE | 2018-10-26 14:03 | Pharmacy Report ---
Glycemic Control Progress Note - Date of Service October 26, 2018 - Scope Glycemic Pharmacist consulted for glycemic control to write orders per [facility] inpatient glycemic control protocol. - Objective Accuchecks BSG(last 24 hours):: 10/25/18 10/25/18 10/25/18 16:15 20:14 23:40 Glucose POC Glucose 132 H 95 95 10/26/18 10/26/18 10/26/18 02:39 07:05 07:36 Glucose 255 H POC Glucose 145 H 308 H* 10/26/18 07:38 Glucose POC Glucose 294 H HbA1c:: 6.5 % (4.5-5.6) H 10/21/18 04:39 - Recent Pertinent Medications The patient is currently receiving: * Basal insulin: Lantus 10 units in the morning and 4 units at dinner * Correctional Insulin: Novolog Correction per scale ACHS Goal Range: Low 120 mg/dL - High 150 mg/dL Correction Factor: 25 mg/dL/unit * Prandial insulin: Per carb ratio of 1 unit per 10 grams CHO consumed * Oral Agents: - Outpatient Anti-Diabetic Meds humalog pump - Assessment & Plan ASSESSMENT: * See progress note from 10/21/18 for more background info, in short: * Pt receiving SQ basal bolus insulin regimen for hyperglycemia secondary to baseline DM (outpatient regimen on hold),stress (now ESRD requiring dialysis), and POD 0 for permcath placement at [facility]. * Patient is currently receiving an average of 32 units of insulin per day * 14 units of basal insulin * 18 units of prandial/correctional insulin * BSGs ranging 95 - 308 mg/dl over the past 24hrs * Changes needed to insulin regimen: * AM Fasting BSG = 292 mg/dl. This is above goal range for patient based on inpatient targets and co-morbidities. 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 The patient's blood sugar at 0200 was 145 mg/dL and then at 0800 was 292 mg/dL. This is indicative that around 0400 the patient's blood sugar spikes significantly. Switch to NPH to attempt to curtail this. Continue twice daily dosing (AM and HS - not dinner). Since patient will be receiving dialysis at some point (either tonight or tomorrow - depending on when patient returns to hospital), plan to reduce evening dose of insulin by slight amount. If patient does NOT receive dialysis, continue 5 units. If he DOES receive dialysis, reduce evening dose to 3 or 4 units. * Post-prandial BSGs are in range therefore no changes needed to CF/CR. Will extend goal range to 120-180 mg/dL. The patient appears to overcorrect whenever his blood sugars are very high but he does require the carbohydrate coverage. Extend this range in hopes of preventing highs and lows that have been occurring this entire hospitalization. * Total daily dose = currently unknown - will depend on if patient receives dialysis. PLAN FOR INPATIENT GLYCEMIC CONTROL: * SWITCH to NPH to 10 units SQ qAM + 5 units SQ qHS * Continuing correction factor of 25 mg/dl/unit * Continuing carb ratio of 1 unit per 10 grams CHO consumed * Continuing goal range of Low 110 mg/dL - High 140 mg/dL RECOMMENDATIONS FOR DISCHARGE: * Recommend patient follow-up closely with outpatient provider. Now that he is on dialysis his needs will change. * Please note that the plan above was derived based on current level of insulin resistance and hospital stress. These recommendations are appropriate for inpatient admission only. Plan of care upon discharge will need to be reassessed to avoid potential outpatient hypo/hyperglycemia. Thank you.
[2018-10-26] MEDS ORDERED: INSULIN GLARGINE SOLOSTAR 100 UNITS/ML 3 ML PEN SC SCH (16:30)
[2018-10-26] MEDS: SERTRALINE HCL 100 MG TABLET PO SCH (19:53)
[2018-10-26] MEDS ORDERED: INSULIN HUMAN NPH SC SCH ×2 (21:00)
[2018-10-27] MEDS ORDERED: SODIUM CHLORIDE 0.9% 1000ML 1,000 ML IV PRN (07:29)
[2018-10-27 07:51] LABS: BUN Creatinine Ratio 13.4 (10-20); Calcium 7.9 mg/dl (8.5-10.1); Creatinine Clr Calc Pharmacy 14.3 ml/min; Est GFR (African American) 12.9; Est GFR (Non-African American) 11.2; Potassium 4.2 mmol/L (3.5-5.1)
[2018-10-27] MEDS ORDERED: EPOETIN ALFA 4,000 UNIT/ML VIAL IV SCH (08:00)
[2018-10-27] MEDS ORDERED: HEPARIN SOD (PORCINE) 1000 UNIT/ML 10 ML VIAL IV SCH (08:00)
[2018-10-27 08:01] LABS: Beta-Hydroxybutyrate 12.97 mg/dl (0.2-2.81)
[2018-10-27] MEDS: SERTRALINE HCL 100 MG TABLET PO SCH (08:11)
[2018-10-27] MEDS: CARVEDILOL 12.5 MG TAB PO SCH ×2 (08:11→23:49)
[2018-10-27] MEDS: ERYTHROMYCIN ETHYLSUCCINATE 400 MG TAB PO SCH ×3 (08:11→17:32)
[2018-10-27] MEDS: INSULIN ASPART 100 UNITS/ML 3 ML PEN SC SCH ×4 (08:12→21:49)
[2018-10-27] MEDS: AMLODIPINE BESYLATE 5 MG TAB PO SCH (08:12)
[2018-10-27] MEDS: INSULIN HUMAN NPH SC SCH (08:13)
[2018-10-27] MEDS ORDERED: INSULIN HUMAN REGULAR PER UNIT 3 UNITS in SYRINGE 2.97 ML IV SCH (08:15)
--- NOTE | 2018-10-27 09:09 | Dialysis Progress Note ---
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 s/p thoracentesis earlier this admission w/ transudative effusion from renal failure/ vol OL. Pt getting set up at [facility] for outpt dialysis: s/p 10/26 TDC placement at [facility]. Given challenges of OP f/u and self care and very symptomatic gastroparesis, not an immediate PD candidate though that could be discussed as OP. my partner has discussed dialysis w/ pt who is agreeable to [facility]. -chemistries, volume status, anemia, BP all acceptable for now -cont daily bmp -cont strict I/0 >first HD tx on 10/26; next one today 3hr; plan next HD 10/29 as inpt or OP >ideally then start OP dialysis chronically at [facility] on 10/29>>pls have case mgt assist w/ this admissions process >>Dr Townsend's help much appreciated (2) Anemia: Patient with anemia of ESRD. Hemoglobin of 9 on 10/23. Iron stores adequate -started low dose FLOR. (3) Hypertension: His blood pressure is somewhat labile but overall acceptable on lasix 40 mg iv bid, amlodipine 10 mg daily, coreg 12.5 mg daily, hydralazine 50 mg tid >> cont same; will look to scale back bp meds as we start dialysis Subjective elevated betahydroxybutyrate and BG (414) this am; tolerated first hd yesterday w/ some concerns about clotting in line -- will run w/ low dose heparin today; marked N this am and emesis - resolved w/ meds; teams monitoring bg closely Review of Systems Review of Systems: All systems reviewed & are unremarkable except as noted in HPI & below Respiratory: no dyspnea Cardiovascular: no chest pain, no palpitations and no edema Genitourinary: no dysuria and no difficulty urinating Physical Exam Constitutional: well developed and well nourished on RA A& 0 x 3 Eyes: EOM intact bilaterally ENMT: Ears: no external ear abnormality Nose: no external nose abnormality Mouth: + dry oral mucous membranes Neck: no nuchal rigidity Respiratory: normal respiratory effort Auscultation: + diminished lung sounds Cardiovascular: RRR, no murmur, no edema Gastrointestinal (Abdomen): Inspection/Auscultation: normal bowel sounds Percussion/Palpation: abdomen soft; abdomen nontender Musculoskeletal: Extremities: strength 5/5 throughout Skin: no rashes, warm and dry Neurologic: spicer, fluent speech Psychiatric: Orientation: alert and oriented x 3 Eye Contact: good eye contact Speech: normal rate/rhythm/volume of speech Affect: + depressed affect and + flat affect Results & Data Vital Signs (Past 12 Hours) Vital Signs Temp Pulse Pulse Resp BP Pulse Ox 10/27/18 07:06 36.8 C 73 17 189/89 H 94 10/27/18 03:07 36.4 C L 73 17 161/74 H 94 10/27/18 00:00 74 10/26/18 23:23 37.0 C 76 18 144/71 H 94 Laboratory Results Abnormal lab results 10/26/18 10/26/18 10/27/18 Range/Units 16:21 19:59 06:26 Sodium 134 L (136-145) mmol/L Chloride 95 L (98-107) mmol/L BUN 74 H (7-18) mg/dl Creatinine 5.55 H* D (0.6-1.4) mg/dl Glucose 414 H* (70-99) mg/dl POC Glucose 190 H 282 H (70-99) Calcium 7.9 L (8.5-10.1) mg/dl Beta-Hydroxybutyric Acd 12.97 H (0.2-2.81) mg/dl 10/27/18 10/27/18 Range/Units 07:30 07:31 Sodium (136-145) mmol/L Chloride (98-107) mmol/L BUN (7-18) mg/dl Creatinine (0.6-1.4) mg/dl Glucose (70-99) mg/dl POC Glucose 458 H* 480 H* (70-99) Calcium (8.5-10.1) mg/dl Beta-Hydroxybutyric Acd (0.2-2.81) mg/dl (1) Anemia Anemia type: unspecified type Qualified Code(s): D64.9 - Anemia, unspecified (2) Hypertension Hypertension type: essential hypertension Qualified Code(s): I10 - Essential (primary) hypertension
[2018-10-27] MEDS: HEPARIN SOD (PORCINE) 1000 UNIT/ML 10 ML VIAL IV SCH ×3 (10:00→11:11)
--- NOTE | 2018-10-27 13:48 | Pharmacy Report ---
Glycemic Control Progress Note - Date of Service October 27, 2018 - Scope Glycemic Pharmacist consulted for glycemic control to write orders per [facility] inpatient glycemic control protocol. - Objective Accuchecks BSG(last 24 hours):: 10/26/18 10/26/18 10/27/18 16:21 19:59 06:26 Glucose 414 H* POC Glucose 190 H 282 H 10/27/18 10/27/18 10/27/18 07:30 07:31 10:10 Glucose POC Glucose 458 H* 480 H* 331 H* 10/27/18 12:28 Glucose POC Glucose 182 H HbA1c:: 6.5 % (4.5-5.6) H 10/21/18 04:39 - Recent Pertinent Medications The patient is currently receiving: * Basal insulin: NPH 10 units in the morning and 3 units in the evening * Correctional Insulin: Novolog Correction per scale ACHS Goal Range: Low 120 mg/dL - High 180 mg/dL Correction Factor: 25 mg/dL/unit * Prandial insulin: Per carb ratio of 1 unit per 10 grams CHO consumed - Outpatient Anti-Diabetic Meds Humalog pump - Assessment & Plan ASSESSMENT: * See progress note from 10/21/18 for more background info, in short: * Pt receiving SQ basal bolus insulin regimen for hyperglycemia secondary to baseline DM (outpatient regimen on hold) and start of dialysis * Patient is currently receiving an average of 18 units of insulin per day * 13 units of basal insulin * 5 units of prandial/correctional insulin * BSGs ranging 145 - 292 mg/dl over the past 24hrs * Changes needed to insulin regimen: * AM Fasting BSG = 480 mg/dl. This is above goal range for patient based on inpatient targets and co-morbidities. The patient was snacking all night long so this is grossly elevated. Continued with previous regimen. Give small bolus of insulin (0.05 units/kg) then sent to dialysis. Patient's blood sugar decreased nicely. Increase NPH tonight back to previous basal rate of 14 units. * Post-prandial BSGs have not been elevated. Continue current regimen. * Total daily dose = ~30 units. PLAN FOR INPATIENT GLYCEMIC CONTROL: * Increasing NPH to 10 units in the morning and 4 units in the evening SQ * Continuing correction factor of 25 mg/dl/unit * Continuing carb ratio of 1 unit per 10 grams CHO consumed * Continuing goal range of Low 120 mg/dL - High 180 mg/dL RECOMMENDATIONS FOR DISCHARGE: * phone call into [facility] in [place] (endocrinology clinic) to establish new home regimen with dialysis. * Please note that the plan above was derived based on current level of insulin resistance and hospital stress. These recommendations are appropriate for inpatient admission only. Plan of care upon discharge will need to be reassessed to avoid potential outpatient hypo/hyperglycemia. Thank you.
[2018-10-27] MEDS: ONDANSETRON INJ 2 MG/ML 2 ML VIAL IV PRN ×2 (16:48→19:17)
[2018-10-27] MEDS ORDERED: METOCLOPRAMIDE HCL INJ 5 MG/ML 2 ML VIAL IV ONE (17:20)
--- NOTE | 2018-10-27 20:05 | XRay Report ---
XR abdomen 2V w PA chest CLINICAL HISTORY: Persistent vomiting. Possible small bowel obstruction. COMPARISON STUDY: 10/21/2018 FINDINGS: Erect chest reveals a dual lumen right-sided central venous catheter. The heart is enlarged . There is improving pulmonary vascular congestion. There are left lower lobe pulmonary airspace opac ities. There is a layering left pleural effusion. A small right pleural effusion is also suspected. T here are no abnormally dilated loops of large or small bowel. There are no transition zones indicate bowel obstruction. There is a persistent calcification projected over the right renal shadow. IMPRESSION: 1. Resolving congestive failure 2. Persistent bilateral pleural effusions left larger than right with associated left basilar airspac e opacities 3. No evidence of bowel obstruction. No evidence of free air 4. Suspected right renal calculus Electronically signed by: Geovanny Moncada M.D. 10/27/2018 8:03 PM
[2018-10-27 20:29] LABS: Basophils # (auto) 0.02 K/uL (0-0.2); Basophils % (auto) 0.2 %; Eosinophils # (auto) 0.03 K/uL (0-0.5); Eosinophils % (auto) 0.2 %; Hematocrit (blood only) 31.6 % (42-52); Hemoglobin 10.7 g/dL (14.0-18.0); Immature Granulocytes # (auto) 0.04 K/uL (0.00-0.02); Immature Granulocytes % (auto) 0.3 %; Lymphocytes # (auto) 0.96 K/uL (1.2-3.4); Lymphocytes % (auto) 7.2 %; Mean Corpuscular Hgb Conc 33.9 g/dL (32-36); Mean Corpuscular Volume 87.1 fL (80-100); Mean Platelet Volume 8.9 fL (7.4-10.4); Monocytes # (auto) 0.81 K/uL (0.11-0.59); Monocytes % (auto) 6.1 %; Neutrophils # (auto) 11.41 K/uL (1.4-6.5); Platelet Count 324 K/uL (130-400); RDW Coefficient of Variation 13.6 % (11.5-14.5); RDW Standard Deviation 43.4 fL (36.4-46.3); Red Blood Count 3.63 M/uL (4.7-6.1); White Blood Count 13.27 K/uL (4.8-10.8)
[2018-10-27] MEDS ORDERED: METOCLOPRAMIDE HCL INJ 5 MG/ML 2 ML VIAL IV PRN (20:41)
--- NOTE | 2018-10-27 20:49 | Hospitalist Progress Note ---
Date of Service October 27, 2018 Assessment & Plan (1) Nausea and vomiting: Following his HD session today. Etiology? Due to pulling of fluid and decreased flow to his stomach leading to nausea? Due to cardiac causes? Anginal equivalent? Other? Check cbc, cmp, lipase and troponin now. Check abd x-rays now. Check EKG. Re-eval after these results have returned. For symptom relief - reglan 5mg IV q6h prn. Continue his EES for his gastroparesis. Watch QTc on monitor carefully. If nausea/emesis is intractable despite various meds he may need NG tube placement. (2) ESRD (end stage renal disease): Patient has had progressive worsening of his baseline CKD and now BUN is about 100 and Cr is 6.7. He has been followed by [facility] closely this admission and on previous admissions. He presented with volume overload/anasarca along with mild hyperkalemia earlier this stay. Fortunately he has diuresed enough over the last 5-6 days to improve his volume status (net negative 10 liters). He also underwent thoracentesis yielding 1300cc of transudative fluid. Despite his volume status improvement the nephrology team is now categorizing him as ESRD. POD #1 s/p dialysis catheter placement at [facility] yesterday. s/p HD session yesterday and again today. Appreciate nephrology assistance. (3) Acute worsening of stage 4 chronic kidney disease: baseline Cr high 3's/low 4's now with development of ESRD (4) Volume overload: on the basis of worsening CKD and development of ESRD rather than CHF volume status improved see "ESRD" above (5) Chronic systolic (congestive) heart failure: EF 45-50% on echo this admission. EF was 55-60% on echo in August of this year. This may be due to ischemic cardiomyopathy as there are now regional wall motion abnormalities. He will need cardiology follow-up for this. Continue coreg. Should be on aspirin therapy in light of wall motion abnormalities. (6) Gastroparesis: resumed erythromycin before meals. despite such he has had refractory nausea/emesis today - see discussion above. (7) Anemia: defer iron therapy to nephrology H/H acceptable (8) Depression: continue SSRI numerous stressors last over the last year -- divorce, move from his hometown of [place] to [place], worsening health status, etc (9) Type I diabetes mellitus: appreciate pharmacy glycemic control consultation & management defer to their team cortisol level wnl no evidence of DKA at this time (10) Hypertension: continue home medications (11) DVT prophylaxis: heparin SC Subjective Patient received HD again today. 1000cc removed. Following HD he felt very nauseaous requiring reglan x 1 and zofran. Still had nausea despite these along with scheduled erythromycin. Upon entering his room he was holding an emesis basis. He felt warm/sweaty/feverish. I checked his temp - it was 37.1. He denied any chest pain, sob, or abd pain. Symptoms were different than his usual gastroparesis. Tele stable overnight. Review of Systems Constitutional: + chills, + sweats and + anorexia Respiratory: no cough and no dyspnea Cardiovascular: no chest pain, no orthopnea and no paroxysmal nocturnal dyspnea Gastrointestinal: + nausea and + vomiting; no abdominal pain, no constipation and no diarrhea/loose stools Physical Exam Constitutional: + acute distress (due to nausea/vomiting), + ill appearing and average body habitus; no altered mental status ENMT: external ear and nose normal, oropharynx normal Respiratory: no respiratory distress Auscultation: + crackles (left base); no rhonchi and no wheezes Cardiovascular: Rate/Rhythm: regular rate and regular rhythm Heart Sounds: normal S1 and normal S2; no murmur Vessels: posterior tibial pulses present and dorsalis pedis pulses present; no JVD Gastrointestinal (Abdomen): normal bowel sounds, soft, nontender, no hepatosplenomegaly Psychiatric: Orientation: alert and oriented x 3 Mood: + depressed mood Results & Data Vital Signs (Past 12 Hours) Vital Signs Temp Pulse Pulse Pulse Pulse Resp BP 10/27/18 19:11 37.1 C 75 23 10/27/18 15:27 37.1 C 72 17 10/27/18 14:29 37.3 C 70 22 10/27/18 12:15 36.9 C 69 10/27/18 12:00 67 130/70 10/27/18 11:40 66 130/68 10/27/18 11:20 65 138/71 10/27/18 11:00 67 139/77 10/27/18 10:40 71 142/86 H 10/27/18 10:20 71 137/74 05/22/19 10:00 71 129/76 10/27/18 09:40 72 136/84 10/27/18 09:20 76 167/94 H 10/27/18 09:06 75 155/84 H 10/27/18 08:59 36.8 C 78 BP BP Pulse Ox 10/27/18 19:11 147/73 H 97 10/27/18 15:27 153/75 H 95 10/27/18 14:29 127/69 93 10/27/18 12:15 145/76 H 10/27/18 12:00 10/27/18 11:40 10/27/18 11:20 10/27/18 11:00 10/27/18 10:40 10/27/18 10:20 10/27/18 10:00 10/27/18 09:40 10/27/18 09:20 10/27/18 09:06 10/27/18 08:59 Laboratory Results Laboratory Results - last 24 hr 10/27/18 10/27/18 10/27/18 06:26 07:30 07:31 WBC RBC Hgb Hct MCV MCH MCHC RDW Std Deviation RDW Coeff of Kami Plt Count MPV Immature Gran % (Auto) Neut % (Auto) Lymph % (Auto) [place] % (Auto) Eos % (Auto) Baso % (Auto) Immature Gran # (Auto) Neut # (Auto) Lymph # (Auto) [place] # (Auto) Eos # (Auto) Baso # (Auto) Sodium 134 L Potassium 4.2 Chloride 95 L Carbon Dioxide 28 Anion Gap 11.0 BUN 74 H Creatinine 5.55 H* D Est Cr Clr Drug Dosing 14.3 Est GFR ( Amer) 12.9 Est GFR (Non-Af Amer) 11.2 BUN/Creatinine Ratio 13.4 Glucose 414 H* POC Glucose 458 H* 480 H* Calcium 7.9 L Total Bilirubin AST ALT Alkaline Phosphatase Troponin I Total Protein Albumin Globulin Albumin/Globulin Ratio Lipase Beta-Hydroxybutyric Acd 12.97 H 10/27/18 10/27/18 10/27/18 10:10 12:28 16:40 WBC RBC Hgb Hct MCV MCH MCHC RDW Std Deviation RDW Coeff of Kami Plt Count MPV Immature Gran % (Auto) Neut % (Auto) Lymph % (Auto) [place] % (Auto) Eos % (Auto) Baso % (Auto) Immature Gran # (Auto) Neut # (Auto) Lymph # (Auto) [place] # (Auto) Eos # (Auto) Baso # (Auto) Sodium Potassium Chloride Carbon Dioxide Anion Gap BUN Creatinine Est Cr Clr Drug Dosing Est GFR ( Amer) Est GFR (Non-Af Amer) BUN/Creatinine Ratio Glucose POC Glucose 331 H* 182 H 121 H Calcium Total Bilirubin AST ALT Alkaline Phosphatase Troponin I Total Protein Albumin Globulin Albumin/Globulin Ratio Lipase Beta-Hydroxybutyric Acd 10/27/18 10/27/18 10/27/18 19:16 20:10 20:10 WBC 13.27 H RBC 3.63 L Hgb 10.7 L Hct 31.6 L MCV 87.1 MCH 29.5 MCHC 33.9 RDW Std Deviation 43.4 RDW Coeff of Kami 13.6 Plt Count 324 MPV 8.9 Immature Gran % (Auto) 0.3 Neut % (Auto) 86.0 Lymph % (Auto) 7.2 [place] % (Auto) 6.1 Eos % (Auto) 0.2 Baso % (Auto) 0.2 Immature Gran # (Auto) 0.04 H Neut # (Auto) 11.41 H Lymph # (Auto) 0.96 L [place] # (Auto) 0.81 H Eos # (Auto) 0.03 Baso # (Auto) 0.02 Sodium Pending Potassium Pending Chloride Pending Carbon Dioxide Pending Anion Gap Pending BUN Pending Creatinine Pending Est Cr Clr Drug Dosing Pending Est GFR ( Amer) Pending Est GFR (Non-Af Amer) Pending BUN/Creatinine Ratio Pending Glucose Pending POC Glucose 142 H Calcium Pending Total Bilirubin Pending AST Pending ALT Pending Alkaline Phosphatase Pending Troponin I Pending Total Protein Pending Albumin Pending Globulin Pending Albumin/Globulin Ratio Pending Lipase Pending Beta-Hydroxybutyric Acd 10/27/18 10/27/18 20:10 20:23 WBC RBC Hgb Hct MCV MCH MCHC RDW Std Deviation RDW Coeff of Kami Plt Count MPV Immature Gran % (Auto) Neut % (Auto) Lymph % (Auto) [place] % (Auto) Eos % (Auto) Baso % (Auto) Immature Gran # (Auto) Neut # (Auto) Lymph # (Auto) [place] # (Auto) Eos # (Auto) Baso # (Auto) Sodium Potassium Chloride Carbon Dioxide Anion Gap BUN Creatinine Est Cr Clr Drug Dosing Est GFR ( Amer) Est GFR (Non-Af Amer) BUN/Creatinine Ratio Glucose POC Glucose 165 H Calcium Total Bilirubin AST ALT Alkaline Phosphatase Troponin I Cancelled Total Protein Albumin Globulin Albumin/Globulin Ratio Lipase Beta-Hydroxybutyric Acd (1) Type I diabetes mellitus Chronic kidney disease stage: stage 4 (severe) Diabetes mellitus complication detail: with chronic kidney disease Diabetes mellitus complication status: with kidney complications Qualified Code(s): E10.22 - Type 1 diabetes mellitus with diabetic chronic kidney disease; N18.4 - Chronic kidney disease, stage 4 (severe) (2) Anemia Anemia type: unspecified type Qualified Code(s): D64.9 - Anemia, unspecified (3) Depression Depression Type: other depression Qualified Code(s): F32.89 - Other specified depressive episodes (4) Hypertension Hypertension type: essential hypertension Qualified Code(s): I10 - Essential (primary) hypertension (5) Volume overload Hypervolemia type: unspecified Qualified Code(s): E87.70 - Fluid overload, unspecified (6) Nausea and vomiting Vomiting type: unspecified Vomiting Intractability: intractable Qualified Code(s): R11.2 - Nausea with vomiting, unspecified
[2018-10-27 21:00] LABS: BUN Creatinine Ratio 11.1 (10-20); Calcium 8.2 mg/dl (8.5-10.1); Creatinine Clr Calc Pharmacy 21.1 ml/min; Est GFR (African American) 21.6; Est GFR (Non-African American) 18.6; Potassium 3.7 mmol/L (3.5-5.1)
[2018-10-27] MEDS ORDERED: INSULIN HUMAN NPH SC SCH (21:00)
[2018-10-27 21:17] LABS: Albumin Globulin Ratio 0.7 (0.9-2); Bilirubin,Total 0.4 mg/dl (0.2-1); Globulin 4.1 gm/dl (2.5-4.0); Total Protein 7.1 gm/dl (6.4-8.2); Troponin I 0.225 ng/ml (0-0.045)
[2018-10-27] MEDS: METOPROLOL TARTRATE 1 MG/ML VIAL IV PRN (23:48)
[2018-10-28 02:14] LABS: Hematocrit (blood only) 31.7 % (42-52); Hemoglobin 10.6 g/dL (14.0-18.0); Mean Corpuscular Hgb Conc 33.4 g/dL (32-36); Mean Corpuscular Volume 88.8 fL (80-100); Platelet Count 317 K/uL (130-400); RDW Coefficient of Variation 13.7 % (11.5-14.5); RDW Standard Deviation 44.4 fL (36.4-46.3); Red Blood Count 3.57 M/uL (4.7-6.1); White Blood Count 13.65 K/uL (4.8-10.8)
[2018-10-28 02:43] LABS: BUN Creatinine Ratio 11.9 (10-20); Calcium 8.3 mg/dl (8.5-10.1); Creatinine Clr Calc Pharmacy 19.6 ml/min; Est GFR (African American) 19.8; Potassium 3.9 mmol/L (3.5-5.1)
[2018-10-28 02:44] LABS: Troponin I 0.21 ng/ml (0-0.045)
[2018-10-28] MEDS ORDERED: INSULIN HUMAN REGULAR PER UNIT 5 UNITS in SYRINGE 4.95 ML IV SCH (02:55)
[2018-10-28 03:18] LABS: Beta-Hydroxybutyrate 53.67 mg/dl (0.2-2.81)
[2018-10-28] MEDS: INSULIN HUMAN NPH SC SCH (04:02)
--- NOTE | 2018-10-28 07:42 | Nephrology Progress Note ---
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 s/p thoracentesis earlier this admission w/ transudative effusion from renal failure/ vol OL. Pt getting set up at [facility] for outpt dialysis: s/p 10/26 TDC placement at [facility]. Given challenges of OP f/u and self care and very symptomatic gastroparesis, not an immediate PD candidate though that could be discussed as OP. [facility] -bp elevated today see below -cont daily bmp -cont strict I/0 >first HD tx on 10/26; next one 10/27 3hr; plan next HD 10/29 as inpt or OP >ideally then start OP dialysis chronically at [facility] on 10/29>>pls have case mgt assist w/ this admissions process >>Dr Townsend's help much appreciated (2) Anemia: Patient with anemia of ESRD. Hemoglobin of 9 on 10/23. Iron stores adequate -started low dose joao 10/27. (3) Hypertension: His blood pressure is high today on amlodipine 10 mg daily, coreg 12.5 mg daily >> -start hydralazine 50 mg bid (4) Nausea and vomiting: defer to primary service on this; has been an issue prior to hd but txs can certainly complicate N mgt Present on Admission?: Yes Subjective tolerated HD yesterday w/ 1L fluid removal; htn today; beta hyroxybutyrate trending up; lots of N >> post HD yesterday, before starting HD yesterday, before TDC placement few days back; pt worries HD worsening N Review of Systems Review of Systems: All systems reviewed & are unremarkable except as noted in HPI & below Constitutional: + fatigue and + anorexia; no fever Respiratory: no dyspnea Cardiovascular: no chest pain, no palpitations and no edema Gastrointestinal: + nausea and + vomiting Physical Exam Constitutional: well developed and + thin on RA, holding emesis basin, A& 0 x 3 Eyes: EOM intact bilaterally ENMT: Ears: no external ear abnormality Nose: no external nose abnormality Mouth: + dry oral mucous membranes Neck: no nuchal rigidity Respiratory: normal respiratory effort Auscultation: + diminished lung sounds Cardiovascular: RRR, no murmur, no edema Gastrointestinal (Abdomen): Inspection/Auscultation: normal bowel sounds Percussion/Palpation: abdomen soft; abdomen nontender Musculoskeletal: Extremities: strength 5/5 throughout Skin: no rashes, warm and dry Neurologic: spicer, fluent speech Psychiatric: Orientation: alert and oriented x 3 Eye Contact: good eye contact Speech: normal rate/rhythm/volume of speech Affect: + depressed affect, + anxious affect and + flat affect Results & Data Vital Signs (Past 12 Hours) Vital Signs Temp Pulse Pulse Pulse Pulse Resp BP 10/28/18 07:05 36.9 C 80 18 10/28/18 03:05 36.8 C 77 18 10/27/18 23:48 76 176/80 H 10/27/18 23:01 36.5 C 76 24 BP BP Pulse Ox 10/28/18 07:05 191/96 H 95 10/28/18 03:05 161/79 H 96 10/27/18 23:48 10/27/18 23:01 176/80 H 98 Laboratory Results Abnormal lab results 10/27/18 10/27/18 10/27/18 Range/Units 06:26 07:30 07:31 WBC (4.8-10.8) K/uL RBC (4.7-6.1) M/uL Hgb (14.0-18.0) g/dL Hct (42-52) % Immature Gran # (Auto) (0.00-0.02) K/uL Neut # (Auto) (1.4-6.5) K/uL Lymph # (Auto) (1.2-3.4) K/uL [place] # (Auto) (0.11-0.59) K/uL Sodium 134 L (136-145) mmol/L Chloride 95 L (98-107) mmol/L Anion Gap (3-11) BUN 74 H (7-18) mg/dl Creatinine 5.55 H* D (0.6-1.4) mg/dl Glucose 414 H* (70-99) mg/dl POC Glucose 458 H* 480 H* (70-99) Calcium 7.9 L (8.5-10.1) mg/dl AST (15-37) U/L Troponin I (0-0.045) ng/ml Albumin (3.4-5.0) gm/dl Globulin (2.5-4.0) gm/dl Albumin/Globulin Ratio (0.9-2) Beta-Hydroxybutyric Acd 12.97 H (0.2-2.81) mg/dl 10/27/18 10/27/18 10/27/18 Range/Units 10:10 12:28 16:40 WBC (4.8-10.8) K/uL RBC (4.7-6.1) M/uL Hgb (14.0-18.0) g/dL Hct (42-52) % Immature Gran # (Auto) (0.00-0.02) K/uL Neut # (Auto) (1.4-6.5) K/uL Lymph # (Auto) (1.2-3.4) K/uL [place] # (Auto) (0.11-0.59) K/uL Sodium (136-145) mmol/L Chloride (98-107) mmol/L Anion Gap (3-11) BUN (7-18) mg/dl Creatinine (0.6-1.4) mg/dl Glucose (70-99) mg/dl POC Glucose 331 H* 182 H 121 H (70-99) Calcium (8.5-10.1) mg/dl AST (15-37) U/L Troponin I (0-0.045) ng/ml Albumin (3.4-5.0) gm/dl Globulin (2.5-4.0) gm/dl Albumin/Globulin Ratio (0.9-2) Beta-Hydroxybutyric Acd (0.2-2.81) mg/dl 10/27/18 10/27/18 10/27/18 Range/Units 19:16 20:10 20:10 WBC 13.27 H (4.8-10.8) K/uL RBC 3.63 L (4.7-6.1) M/uL Hgb 10.7 L (14.0-18.0) g/dL Hct 31.6 L (42-52) % Immature Gran # (Auto) 0.04 H (0.00-0.02) K/uL Neut # (Auto) 11.41 H (1.4-6.5) K/uL Lymph # (Auto) 0.96 L (1.2-3.4) K/uL [place] # (Auto) 0.81 H (0.11-0.59) K/uL Sodium 134 L (136-145) mmol/L Chloride 97 L (98-107) mmol/L Anion Gap 13.0 H (3-11) BUN 40 H (7-18) mg/dl Creatinine 3.63 H D (0.6-1.4) mg/dl Glucose 144 H (70-99) mg/dl POC Glucose 142 H (70-99) Calcium 8.2 L (8.5-10.1) mg/dl AST 14 L (15-37) U/L Troponin I 0.225 H* (0-0.045) ng/ml Albumin 3.0 L (3.4-5.0) gm/dl Globulin 4.1 H (2.5-4.0) gm/dl Albumin/Globulin Ratio 0.7 L (0.9-2) Beta-Hydroxybutyric Acd (0.2-2.81) mg/dl 10/27/18 10/28/18 10/28/18 Range/Units 20:23 01:54 01:54 WBC 13.65 H (4.8-10.8) K/uL RBC 3.57 L (4.7-6.1) M/uL Hgb 10.6 L (14.0-18.0) g/dL Hct 31.7 L (42-52) % Immature Gran # (Auto) (0.00-0.02) K/uL Neut # (Auto) (1.4-6.5) K/uL Lymph # (Auto) (1.2-3.4) K/uL [place] # (Auto) (0.11-0.59) K/uL Sodium 134 L (136-145) mmol/L Chloride 96 L (98-107) mmol/L Anion Gap 15.0 H (3-11) BUN 46 H (7-18) mg/dl Creatinine 3.91 H (0.6-1.4) mg/dl Glucose 347 H* (70-99) mg/dl POC Glucose 165 H (70-99) Calcium 8.3 L (8.5-10.1) mg/dl AST (15-37) U/L Troponin I 0.210 H* (0-0.045) ng/ml Albumin (3.4-5.0) gm/dl Globulin (2.5-4.0) gm/dl Albumin/Globulin Ratio (0.9-2) Beta-Hydroxybutyric Acd 53.67 H (0.2-2.81) mg/dl 10/28/18 10/28/18 10/28/18 Range/Units 03:47 03:48 07:12 WBC (4.8-10.8) K/uL RBC (4.7-6.1) M/uL Hgb (14.0-18.0) g/dL Hct (42-52) % Immature Gran # (Auto) (0.00-0.02) K/uL Neut # (Auto) (1.4-6.5) K/uL Lymph # (Auto) (1.2-3.4) K/uL [place] # (Auto) (0.11-0.59) K/uL Sodium (136-145) mmol/L Chloride (98-107) mmol/L Anion Gap (3-11) BUN (7-18) mg/dl Creatinine (0.6-1.4) mg/dl Glucose (70-99) mg/dl POC Glucose 393 H* 385 H* 320 H* (70-99) Calcium (8.5-10.1) mg/dl AST (15-37) U/L Troponin I (0-0.045) ng/ml Albumin (3.4-5.0) gm/dl Globulin (2.5-4.0) gm/dl Albumin/Globulin Ratio (0.9-2) Beta-Hydroxybutyric Acd (0.2-2.81) mg/dl 10/28/18 Range/Units 07:14 WBC (4.8-10.8) K/uL RBC (4.7-6.1) M/uL Hgb (14.0-18.0) g/dL Hct (42-52) % Immature Gran # (Auto) (0.00-0.02) K/uL Neut # (Auto) (1.4-6.5) K/uL Lymph # (Auto) (1.2-3.4) K/uL [place] # (Auto) (0.11-0.59) K/uL Sodium (136-145) mmol/L Chloride (98-107) mmol/L Anion Gap (3-11) BUN (7-18) mg/dl Creatinine (0.6-1.4) mg/dl Glucose (70-99) mg/dl POC Glucose 325 H* (70-99) Calcium (8.5-10.1) mg/dl AST (15-37) U/L Troponin I (0-0.045) ng/ml Albumin (3.4-5.0) gm/dl Globulin (2.5-4.0) gm/dl Albumin/Globulin Ratio (0.9-2) Beta-Hydroxybutyric Acd (0.2-2.81) mg/dl (1) Anemia Anemia type: unspecified type Qualified Code(s): D64.9 - Anemia, unspecified (2) Hypertension Hypertension type: essential hypertension Qualified Code(s): I10 - Essential (primary) hypertension (3) Nausea and vomiting Vomiting type: unspecified Vomiting Intractability: intractable Qualified Code(s): R11.2 - Nausea with vomiting, unspecified
[2018-10-28] MEDS: ONDANSETRON INJ 2 MG/ML 2 ML VIAL IV PRN ×2 (08:06→16:44)
[2018-10-28] MEDS: INSULIN ASPART 100 UNITS/ML 3 ML PEN SC SCH ×4 (08:10→21:25)
[2018-10-28 08:30] LABS: BUN Creatinine Ratio 11.2 (10-20); Calcium 8.6 mg/dl (8.5-10.1); Creatinine Clr Calc Pharmacy 16.6 ml/min; Est GFR (African American) 17.8; Est GFR (Non-African American) 15.4; Potassium 3.7 mmol/L (3.5-5.1)
[2018-10-28] MEDS ORDERED: INSULIN HUMAN NPH SC ONE (08:30)
[2018-10-28 08:45] LABS: Beta-Hydroxybutyrate 30.2 mg/dl (0.2-2.81)
--- NOTE | 2018-10-28 10:25 | Pharmacy Report ---
Glycemic Control Progress Note - Date of Service October 28, 2018 - Scope Glycemic Pharmacist consulted for glycemic control to write orders per [facility] inpatient glycemic control protocol. - Objective Accuchecks BSG(last 24 hours):: 10/27/18 10/27/18 10/27/18 12:28 16:40 19:16 Glucose POC Glucose 182 H 121 H 142 H 10/27/18 10/27/18 10/28/18 20:10 20:23 01:54 Glucose 144 H 347 H* POC Glucose 165 H 10/28/18 10/28/18 10/28/18 03:47 03:48 07:12 Glucose POC Glucose 393 H* 385 H* 320 H* 10/28/18 10/28/18 10/28/18 07:14 07:46 10:11 Glucose 320 H* POC Glucose 325 H* 230 H HbA1c:: 6.5 % (4.5-5.6) H 10/21/18 04:39 - Recent Pertinent Medications The patient is currently receiving: * Basal insulin: NPH 10 units in the morning and 4 units in the evening * Correctional Insulin: Novolog Correction per scale ACHS Goal Range: Low 120 mg/dL - High 180 mg/dL Correction Factor: 25 mg/dL/unit * Prandial insulin: Per carb ratio of 1 unit per 10 grams CHO consumed * Oral Agents: - Outpatient Anti-Diabetic Meds Humalog pump - Assessment & Plan ASSESSMENT: * See progress note from 10/21/18 for more background info, in short: * Pt receiving SQ basal bolus insulin regimen for hyperglycemia secondary to baseline DM (outpatient regimen on hold), currently not eating * Patient is currently receiving an average of 22 units of insulin per day * 10 units of basal insulin * 12 units of prandial/correctional insulin * BSGs ranging 121 - 480 mg/dl over the past 24hrs * Changes needed to insulin regimen: * AM Fasting BSG = 320 mg/dl. This is above goal range for patient based on inpatient targets and co-morbidities. Patient's blood sugar this morning was elevated because 4 units of NPH was held last night. The 10 units of NPH was given at 0400. Since the patient technically was lacking 4 units from yesterday an additional 4 units was given this morning. Patient does have extensive N/V and has not eaten in about [address] Tonwsend would like an insulin infusion started. Asked about dextrose in fluids and he declined for now. * Post-prandial BSGs are not able to evaluated at this time as patient's blood sugars fluctuate wildly and he is not eating. Placed fixed carbohydrate ratio of 10 for Novolog. * Total daily dose = ? units. * Additional notes / comments: PLAN FOR INPATIENT GLYCEMIC CONTROL: * Starting IV insulin infusion per moderate (moderate/severe) stress protocol * Goal Range 120 - 180 mg/dl * In the critical care setting, continuous IV insulin infusion has been shown to be the best method for achieving glycemic targets. RECOMMENDATIONS FOR DISCHARGE: * Spoke with nurse from [facility]'s office to make them aware that patient was receiving dialysis now. * They wanted the patient to continue on "automatic mode" in order to have the best control. Upload data to them later. Nurse requested to have patient or h is parents call Thursday. * The patient has not really been using automatic mode therefore recommend placing patient on the pump while hospitalized so that we can see if this will work. Patient's parents are able to bring the pump supplies in. * Please note that the plan above was derived based on current level of insulin resistance and hospital stress. These recommendations are appropriate for inpatient admission only. Plan of care upon discharge will need to be reassessed to avoid potential outpatient hypo/hyperglycemia. Thank you.
--- NOTE | 2018-10-28 10:58 | Hospitalist Progress Note ---
Date of Service October 28, 2018 Assessment & Plan (1) Nausea and vomiting: Etiology still uncertain. abd x-rays wnl. gall bladder u/s ordered today and was normal. lipase/lfts wnl. mild troponin elevation overnight but EKGs unchanged. recent echo with wall motion abnormality. no evidence of DKA. erythromycin had been TID for gastroparesis - clearly not helping. changed to reglan 5mg IV q6h. check u/a and urine cx -- r/o UTI. etiology again uncertain. cardiac ? other ? observe overnight. clear liquids as tolerated. continue reglan. consider GI consult. (2) ESRD (end stage renal disease): Patient has had progressive worsening of his baseline CKD and now BUN is about 100 and Cr is 6.7. He has been followed by [facility] closely this admission and on previous admissions. He presented with volume overload/anasarca along with mild hyperkalemia earlier this stay. Fortunately he has diuresed enough over the last 5-6 days to improve his volume status (net negative 10 liters). He also underwent thoracentesis yielding 1300cc of transudative fluid. He is now labeled as ESRD. s/p HD sessions x 2 this week. Appreciate nephrology assistance. HD tomorrow? (3) Acute worsening of stage 4 chronic kidney disease: baseline Cr high 3's/low 4's now with development of ESRD (4) Volume overload: on the basis of worsening CKD and development of ESRD rather than CHF volume status improved s/p diuresis and 2 HD sessions see "ESRD" above (5) Chronic systolic (congestive) heart failure: EF 45-50% on echo this admission. EF was 55-60% on echo in August of this year. This may be due to ischemic cardiomyopathy as there are now regional wall motion abnormalities. Cardiology consult appreciated today. To have cath tomorrow by Dr Spivey. Continue coreg. Should be on aspirin therapy especially if cath reveals CAD. (6) Gastroparesis: resumed erythromycin before meals but had prolific emesis/nausea since yesterday. HOLD EES. start reglan 5mg IV q6h. (7) Anemia: defer iron therapy to nephrology H/H acceptable (8) Depression: continue SSRI numerous stressors last over the last year -- divorce, move from [place] hometown of [place] to [place], worsening health status, etc consider psych consult (9) Type I diabetes mellitus: appreciate pharmacy glycemic control consultation & management no DKA on labs today but essentially NPO change to IV insulin drip pharmacy to manage (10) Hypertension: continue home medications (11) Elevated troponin: uncertain if myocardial demand ischemia in setting of vomiting and ESRD or small NSTEMI. favor former. cath tomorrow by Dr Spivey. (12) DVT prophylaxis: heparin SC Subjective patient had nausea and/or dry heaves all night. upon my arrival he was holding an emesis basin. this nausea started post-dialysis yesterday afternoon. no dyspnea. no cough. no chest pain or abdominal pain. just "feels terrible." tele w/o dysrhythmia overnight. Review of Systems Constitutional: no fever and no chills Respiratory: no cough and no dyspnea Cardiovascular: no chest pain, no orthopnea, no paroxysmal nocturnal dyspnea and no edema Gastrointestinal: + nausea and + vomiting; no abdominal pain, no constipation and no diarrhea/loose stools Genitourinary: + difficulty urinating and + decreased urination Physical Exam Constitutional: + acute distress (due to nausea/vomiting), + ill appearing and average body habitus; no altered mental status ENMT: external ear and nose normal, oropharynx normal Respiratory: no respiratory distress Auscultation: no rales, no rhonchi and no wheezes Cardiovascular: Rate/Rhythm: regular rate and regular rhythm Heart Sounds: normal S1 and normal S2; no murmur Vessels: posterior tibial pulses present and dorsalis pedis pulses present; no JVD Gastrointestinal (Abdomen): normal bowel sounds, soft, nontender, no hepatosplenomegaly Skin: right upper chest permcath clean Psychiatric: Orientation: alert and oriented x 3 Mood: + depressed mood Results & Data Vital Signs (Past 12 Hours) Vital Signs Temp Pulse Pulse Pulse Pulse Resp BP 10/28/18 07:05 36.9 C 80 18 10/28/18 03:05 36.8 C 77 18 10/27/18 23:48 76 176/80 H 10/27/18 23:01 36.5 C 76 24 BP BP Pulse Ox 10/28/18 07:05 191/96 H 95 10/28/18 03:05 161/79 H 96 10/27/18 23:48 10/27/18 23:01 176/80 H 98 Laboratory Results Laboratory Results - last 24 hr 10/27/18 10/27/18 10/27/18 12:28 16:40 19:16 WBC RBC Hgb Hct MCV MCH MCHC RDW Std Deviation RDW Coeff of Kami Plt Count MPV Immature Gran % (Auto) Neut % (Auto) Lymph % (Auto) [place] % (Auto) Eos % (Auto) Baso % (Auto) Immature Gran # (Auto) Neut # (Auto) Lymph # (Auto) [place] # (Auto) Eos # (Auto) Baso # (Auto) Sodium Potassium Chloride Carbon Dioxide Anion Gap BUN Creatinine Est Cr Clr Drug Dosing Est GFR ( Amer) Est GFR (Non-Af Amer) BUN/Creatinine Ratio Glucose POC Glucose 182 H 121 H 142 H Calcium Total Bilirubin AST ALT Alkaline Phosphatase Troponin I Total Protein Albumin Globulin Albumin/Globulin Ratio Lipase Beta-Hydroxybutyric Acd 10/27/18 10/27/18 10/27/18 20:10 20:10 20:10 WBC 13.27 H RBC 3.63 L Hgb 10.7 L Hct 31.6 L MCV 87.1 MCH 29.5 MCHC 33.9 RDW Std Deviation 43.4 RDW Coeff of Kami 13.6 Plt Count 324 MPV 8.9 Immature Gran % (Auto) 0.3 Neut % (Auto) 86.0 Lymph % (Auto) 7.2 [place] % (Auto) 6.1 Eos % (Auto) 0.2 Baso % (Auto) 0.2 Immature Gran # (Auto) 0.04 H Neut # (Auto) 11.41 H Lymph # (Auto) 0.96 L [place] # (Auto) 0.81 H Eos # (Auto) 0.03 Baso # (Auto) 0.02 Sodium 134 L Potassium 3.7 Chloride 97 L Carbon Dioxide 24 Anion Gap 13.0 H BUN 40 H Creatinine 3.63 H D Est Cr Clr Drug Dosing 21.1 Est GFR ( Amer) 21.6 Est GFR (Non-Af Amer) 18.6 BUN/Creatinine Ratio 11.1 Glucose 144 H POC Glucose Calcium 8.2 L Total Bilirubin 0.4 AST 14 L ALT 25 Alkaline Phosphatase 109 Troponin I 0.225 H* Cancelled Total Protein 7.1 Albumin 3.0 L Globulin 4.1 H Albumin/Globulin Ratio 0.7 L Lipase 182 Beta-Hydroxybutyric Acd 05/22/19 05/23/19 05/23/19 20:23 01:54 01:54 WBC 13.65 H RBC 3.57 L Hgb 10.6 L Hct 31.7 L MCV 88.8 MCH 29.7 MCHC 33.4 RDW Std Deviation 44.4 RDW Coeff of Kami 13.7 Plt Count 317 MPV 9.0 Immature Gran % (Auto) Neut % (Auto) Lymph % (Auto) [place] % (Auto) Eos % (Auto) Baso % (Auto) Immature Gran # (Auto) Neut # (Auto) Lymph # (Auto) [place] # (Auto) Eos # (Auto) Baso # (Auto) Sodium 134 L Potassium 3.9 Chloride 96 L Carbon Dioxide 23 Anion Gap 15.0 H BUN 46 H Creatinine 3.91 H Est Cr Clr Drug Dosing 19.6 Est GFR ( Amer) 19.8 Est GFR (Non-Af Amer) 17.0 BUN/Creatinine Ratio 11.9 Glucose 347 H* POC Glucose 165 H Calcium 8.3 L Total Bilirubin AST ALT Alkaline Phosphatase Troponin I 0.210 H* Total Protein Albumin Globulin Albumin/Globulin Ratio Lipase Beta-Hydroxybutyric Acd 53.67 H 10/28/18 10/28/18 10/28/18 03:47 03:48 07:12 WBC RBC Hgb Hct MCV MCH MCHC RDW Std Deviation RDW Coeff of Kami Plt Count MPV Immature Gran % (Auto) Neut % (Auto) Lymph % (Auto) [place] % (Auto) Eos % (Auto) Baso % (Auto) Immature Gran # (Auto) Neut # (Auto) Lymph # (Auto) [place] # (Auto) Eos # (Auto) Baso # (Auto) Sodium Potassium Chloride Carbon Dioxide Anion Gap BUN Creatinine Est Cr Clr Drug Dosing Est GFR ( Amer) Est GFR (Non-Af Amer) BUN/Creatinine Ratio Glucose POC Glucose 393 H* 385 H* 320 H* Calcium Total Bilirubin AST ALT Alkaline Phosphatase Troponin I Total Protein Albumin Globulin Albumin/Globulin Ratio Lipase Beta-Hydroxybutyric Acd 10/28/18 10/28/18 10/28/18 07:14 07:46 07:46 WBC RBC Hgb Hct MCV MCH MCHC RDW Std Deviation RDW Coeff of Kami Plt Count MPV Immature Gran % (Auto) Neut % (Auto) Lymph % (Auto) [place] % (Auto) Eos % (Auto) Baso % (Auto) Immature Gran # (Auto) Neut # (Auto) Lymph # (Auto) [place] # (Auto) Eos # (Auto) Baso # (Auto) Sodium 135 L Potassium 3.7 Chloride 98 Carbon Dioxide 25 Anion Gap 12.0 H BUN 48 H Creatinine 4.26 H D Est Cr Clr Drug Dosing 16.6 Est GFR ( Amer) 17.8 Est GFR (Non-Af Amer) 15.4 BUN/Creatinine Ratio 11.2 Glucose 320 H* POC Glucose 325 H* Calcium 8.6 Total Bilirubin AST ALT Alkaline Phosphatase Troponin I 0.196 H* Total Protein Albumin Globulin Albumin/Globulin Ratio Lipase Beta-Hydroxybutyric Acd 30.20 H 10/28/18 10:11 WBC RBC Hgb Hct MCV MCH MCHC RDW Std Deviation RDW Coeff of Kami Plt Count MPV Immature Gran % (Auto) Neut % (Auto) Lymph % (Auto) [place] % (Auto) Eos % (Auto) Baso % (Auto) Immature Gran # (Auto) Neut # (Auto) Lymph # (Auto) [place] # (Auto) Eos # (Auto) Baso # (Auto) Sodium Potassium Chloride Carbon Dioxide Anion Gap BUN Creatinine Est Cr Clr Drug Dosing Est GFR ( Amer) Est GFR (Non-Af Amer) BUN/Creatinine Ratio Glucose POC Glucose 230 H Calcium Total Bilirubin AST ALT Alkaline Phosphatase Troponin I Total Protein Albumin Globulin Albumin/Globulin Ratio Lipase Beta-Hydroxybutyric Acd (1) Type I diabetes mellitus Chronic kidney disease stage: stage 4 (severe) Diabetes mellitus complication detail: with chronic kidney disease Diabetes mellitus complication status: with kidney complications Qualified Code(s): E10.22 - Type 1 diabetes mellitus with diabetic chronic kidney disease; N18.4 - Chronic kidney disease, stage 4 (severe) (2) Anemia Anemia type: unspecified type Qualified Code(s): D64.9 - Anemia, unspecified (3) Depression Depression Type: other depression Qualified Code(s): F32.89 - Other specified depressive episodes (4) Nausea and vomiting Vomiting Intractability: intractable Vomiting type: unspecified Qualified Code(s): R11.2 - Nausea with vomiting, unspecified (5) Hypertension Hypertension type: essential hypertension Qualified Code(s): I10 - Essential (primary) hypertension (6) Volume overload Hypervolemia type: unspecified Qualified Code(s): E87.70 - Fluid overload, unspecified
[2018-10-28] MEDS ORDERED: INSULIN REGULAR 250 UNITS in SODIUM CHLORIDE 0.9% 247.5 ML IV SCH (11:00)
[2018-10-28] MEDS: METOCLOPRAMIDE HCL INJ 5 MG/ML 2 ML VIAL IV SCH ×3 (11:26→23:59)
--- NOTE | 2018-10-28 16:04 | Cardiology Consultation ---
Date of Consultation October 28, 2018 Assessment & Plan (1) Elevated troponin: Patient has had several biomarkers evaluations over the past few months. Curiously, he has mild elevations in his cardiac troponin over the past 24 hours. He did not describe a change in his symptoms of abdominal complaints. Did not describe any new symptoms of chest discomfort. He does not have a history of exertional angina or chest discomfort but is somewhat limited by orthopedic disease. Given his diabetes and significant renal disease I think he is at high risk for coronary disease as well. Seems curious that his biomarkers are elevated now verses evaluations over the past few months. Perhaps this is related to dialysis itself. I do not believe his current symptoms are anginal in nature but I think it would be important to know the has severe coronary disease in order to avoid complications associated with dialysis. This is also important given the recent echocardiogram with mildly reduced LV function regional wall motion abnormalities. I did describe the risks benefits and alternatives to coronary angiography with the patient today. He is in favor proceeding with the procedure. I think we can proceed tomorrow. I do not believe any additional intervention is required currently. He is on a beta-deidre and we will consider anti-platelet therapy depending on the results of his angiography. He reportedly has an allergy to shellfish but has received contrast in the past for CT scans and not had reactions. History of Present Illness Reason for Consultation: Abnormal troponin Requesting Physician: Kristian Attending Physician: Guevara Townsend History of Present Illness The patient is a 40-year-old gentleman with a history of type 1 diabetes mellitus, severe gastroparesis and admission for progressive renal failure. He was admitted primarily for mental status changes and metabolic derangements in the setting of severe volume overload. His hospitalization has involved progressive diuresis and eventual initiation of dialysis. During this hospitalization the patient has had frequent episodes of abdominal discomfort, nausea and vomiting. Over the past 2 days he has had significant nausea and vomiting. Evaluation during these episodes as involve both an EKG, periodic echocardiography and serum biomarker evaluations. Currently the patient is feeling poorly. He continues to have significant nausea, retching and vomiting. He states that this waxes and wanes in severity. This is been a chronic problem for him. He will have good days and bad days but can go a couple of days on occasion without significant symptom. He cannot recall any specific remedy. When he is feeling well he is able to ambulate for some distance. He is limited primarily by hip pain. He does not describe exertional symptoms such as chest pain or limiting shortness of breath. He did not describe orthopnea or paroxysmal nocturnal dyspnea. He has not had palpitations. He does occasionally have dizziness and has suffered syncope. He relates these episodes to changes in position and associated hypotension. Allergies Allergy/AdvReac Type Severity Reaction Status Date / Time shellfish derived Allergy Severe anaphylaxis Verified 10/21/18 00:26 codeine Allergy Intermediate Hives Verified 10/21/18 00:26 promethazine Allergy Intermediate itchy/hives Verified 10/21/18 00:26 Home Medications Home Medications Medication Instructions Recorded Confirmed Type metoprolol tartrate 25 mg PO BID #60 tab 08/13/18 10/21/18 Rx Humalog U-100 Insulin 1 sliding scale dose SUBCUT CONT 09/10/18 10/21/18 History amlodipine 10 mg PO QAM 09/10/18 10/21/18 History atorvastatin 10 mg PO DAILY 09/10/18 10/21/18 History cholecalciferol (vitamin D3) 2,000 units PO QAM 09/10/18 10/21/18 History [Vitamin D3] furosemide 20 mg PO BID PRN 09/10/18 10/21/18 History hydralazine 25 mg PO TID 09/10/18 10/21/18 History sodium bicarbonate 650 mg PO BID #60 tab 09/15/18 10/21/18 Rx sertraline 100 mg PO DAILY 10/21/18 10/21/18 History Patient History Medical History Acid reflux (Chronic) Hypertension (Chronic) Type I diabetes mellitus (Chronic) Gastroparesis due to DM (Chronic) Depression (Chronic) Anemia (Chronic) Diabetic nephropathy (Chronic) CKD stage 3 due to type 1 diabetes mellitus (Chronic) Anxiety (Chronic) Surgical History History of appendectomy (Resolved) H/O shoulder surgery (Resolved) History of hip surgery (Resolved) Family History Grandfather Myocardial infarction Social History Preferred Language: Y[place]ut Communication Ability: Effective Tube Cleaning Operator Required: No Beliefs That Will Affect Care: None marital status: Legally Current Living Situation: Parent current occupational status: employed Other Information That Helps Us Care for You: No Feels Safe at Home: Yes Safety Concerns: Feels Safe At This Time Smoking Status: Never smoker Tobacco Type: smokeless tobacco Do You Dip or Chew Tobacco: No Second Hand Exposure: No Tobacco Cessation Education Requested by Patient: No Hx Alcohol Use: No Hx Substance Use: No Review of Systems Review of Systems: All systems reviewed & are unremarkable except as noted in HPI & below No recent fevers or chills. Hip pain as noted above. Back pain related to thoracic spine fracture. Physical Exam Physical Exam: The patient is alert and oriented. He is in some mild distress with abdominal discomfort and vomiting. He answered all questions appropriately. HEENT: Pupils are equal and reactive to light and accommodation. Extraocular movements are intact. The sclerae are anicteric. Neuro: Cranial nerves intact Neck: Patient's neck is supple. He has palpable carotid pulses bilaterally without bruits on auscultation. There is no evidence of jugular venous distention. The thyroid is not enlarged. Lungs: Clear to auscultation bilaterally. He has good air movement without use of accessory muscles. No rales wheezes or rhonchi. Cardiac: Heart demonstrates a regular rate and rhythm. Normal S1 and S2. No murmurs on examination. Pulses: The patient has palpable radial pulses bilaterally that are equal in intensity Extremities: There was no evidence of hypoperfusion. There is no cyanosis or clubbing. Skin: I did not appreciate any rashes on examination today. Results & Data Vital Signs (Past 12 Hours) Vital Signs Temp Pulse Resp BP Pulse Ox 10/28/18 11:42 37.1 C 78 16 174/88 H 98 10/28/18 07:05 36.9 C 80 18 191/96 H 95 Laboratory Results Abnormal Lab Results 10/27/18 10/27/18 10/27/18 16:40 19:16 20:10 WBC 13.27 H RBC 3.63 L Hgb 10.7 L Hct 31.6 L MCV 87.1 MCH 29.5 MCHC 33.9 RDW Std Deviation 43.4 RDW Coeff of Kami 13.6 Plt Count 324 MPV 8.9 Immature Gran % (Auto) 0.3 Neut % (Auto) 86.0 Lymph % (Auto) 7.2 [place] % (Auto) 6.1 Eos % (Auto) 0.2 Baso % (Auto) 0.2 Immature Gran # (Auto) 0.04 H Neut # (Auto) 11.41 H Lymph # (Auto) 0.96 L [place] # (Auto) 0.81 H Eos # (Auto) 0.03 Baso # (Auto) 0.02 Sodium Potassium Chloride Carbon Dioxide Anion Gap BUN Creatinine Est Cr Clr Drug Dosing Est GFR ( Amer) Est GFR (Non-Af Amer) BUN/Creatinine Ratio Glucose POC Glucose 121 H 142 H Calcium Total Bilirubin AST ALT Alkaline Phosphatase Troponin I Total Protein Albumin Globulin Albumin/Globulin Ratio Lipase Beta-Hydroxybutyric Acd 10/27/18 10/27/18 10/27/18 20:10 20:10 20:23 WBC RBC Hgb Hct MCV MCH MCHC RDW Std Deviation RDW Coeff of Kami Plt Count MPV Immature Gran % (Auto) Neut % (Auto) Lymph % (Auto) [place] % (Auto) Eos % (Auto) Baso % (Auto) Immature Gran # (Auto) Neut # (Auto) Lymph # (Auto) [place] # (Auto) Eos # (Auto) Baso # (Auto) Sodium 134 L Potassium 3.7 Chloride 97 L Carbon Dioxide 24 Anion Gap 13.0 H BUN 40 H Creatinine 3.63 H D Est Cr Clr Drug Dosing 21.1 Est GFR ( Amer) 21.6 Est GFR (Non-Af Amer) 18.6 BUN/Creatinine Ratio 11.1 Glucose 144 H POC Glucose 165 H Calcium 8.2 L Total Bilirubin 0.4 AST 14 L ALT 25 Alkaline Phosphatase 109 Troponin I 0.225 H* Cancelled Total Protein 7.1 Albumin 3.0 L Globulin 4.1 H Albumin/Globulin Ratio 0.7 L Lipase 182 Beta-Hydroxybutyric Acd 10/28/18 10/28/18 10/28/18 01:54 01:54 03:47 WBC 13.65 H RBC 3.57 L Hgb 10.6 L Hct 31.7 L MCV 88.8 MCH 29.7 MCHC 33.4 RDW Std Deviation 44.4 RDW Coeff of Kami 13.7 Plt Count 317 MPV 9.0 Immature Gran % (Auto) Neut % (Auto) Lymph % (Auto) [place] % (Auto) Eos % (Auto) Baso % (Auto) Immature Gran # (Auto) Neut # (Auto) Lymph # (Auto) [place] # (Auto) Eos # (Auto) Baso # (Auto) Sodium 134 L Potassium 3.9 Chloride 96 L Carbon Dioxide 23 Anion Gap 15.0 H BUN 46 H Creatinine 3.91 H Est Cr Clr Drug Dosing 19.6 Est GFR ( Amer) 19.8 Est GFR (Non-Af Amer) 17.0 BUN/Creatinine Ratio 11.9 Glucose 347 H* POC Glucose 393 H* Calcium 8.3 L Total Bilirubin AST ALT Alkaline Phosphatase Troponin I 0.210 H* Total Protein Albumin Globulin Albumin/Globulin Ratio Lipase Beta-Hydroxybutyric Acd 53.67 H 10/28/18 10/28/18 10/28/18 03:48 07:12 07:14 WBC RBC Hgb Hct MCV MCH MCHC RDW Std Deviation RDW Coeff of Kami Plt Count MPV Immature Gran % (Auto) Neut % (Auto) Lymph % (Auto) [place] % (Auto) Eos % (Auto) Baso % (Auto) Immature Gran # (Auto) Neut # (Auto) Lymph # (Auto) [place] # (Auto) Eos # (Auto) Baso # (Auto) Sodium Potassium Chloride Carbon Dioxide Anion Gap BUN Creatinine Est Cr Clr Drug Dosing Est GFR ( Amer) Est GFR (Non-Af Amer) BUN/Creatinine Ratio Glucose POC Glucose 385 H* 320 H* 325 H* Calcium Total Bilirubin AST ALT Alkaline Phosphatase Troponin I Total Protein Albumin Globulin Albumin/Globulin Ratio Lipase Beta-Hydroxybutyric Acd 10/28/18 10/28/18 10/28/18 07:46 07:46 10:11 WBC RBC Hgb Hct MCV MCH MCHC RDW Std Deviation RDW Coeff of Kami Plt Count MPV Immature Gran % (Auto) Neut % (Auto) Lymph % (Auto) [place] % (Auto) Eos % (Auto) Baso % (Auto) Immature Gran # (Auto) Neut # (Auto) Lymph # (Auto) [place] # (Auto) Eos # (Auto) Baso # (Auto) Sodium 135 L Potassium 3.7 Chloride 98 Carbon Dioxide 25 Anion Gap 12.0 H BUN 48 H Creatinine 4.26 H D Est Cr Clr Drug Dosing 16.6 Est GFR ( Amer) 17.8 Est GFR (Non-Af Amer) 15.4 BUN/Creatinine Ratio 11.2 Glucose 320 H* POC Glucose 230 H Calcium 8.6 Total Bilirubin AST ALT Alkaline Phosphatase Troponin I 0.196 H* Total Protein Albumin Globulin Albumin/Globulin Ratio Lipase Beta-Hydroxybutyric Acd 30.20 H 10/28/18 10/28/18 10/28/18 11:26 12:25 13:40 WBC RBC Hgb Hct MCV MCH MCHC RDW Std Deviation RDW Coeff of Kami Plt Count MPV Immature Gran % (Auto) Neut % (Auto) Lymph % (Auto) [place] % (Auto) Eos % (Auto) Baso % (Auto) Immature Gran # (Auto) Neut # (Auto) Lymph # (Auto) [place] # (Auto) Eos # (Auto) Baso # (Auto) Sodium Potassium Chloride Carbon Dioxide Anion Gap BUN Creatinine Est Cr Clr Drug Dosing Est GFR ( Amer) Est GFR (Non-Af Amer) BUN/Creatinine Ratio Glucose POC Glucose 205 H 159 H 129 H Calcium Total Bilirubin AST ALT Alkaline Phosphatase Troponin I Total Protein Albumin Globulin Albumin/Globulin Ratio Lipase Beta-Hydroxybutyric Acd Diagnostic Findings Patient's most recent echocardiogram demonstrated slightly reduced LV systolic function with very mild regional wall motion abnormalities involving the anterior and septal ocampo. ECG Additional Comments: Normal
[2018-10-28] MEDS: HydrALAZINE TAB 50 MG TAB PO SCH ×2 (16:05→21:25)
[2018-10-28] MEDS: AMLODIPINE BESYLATE 5 MG TAB PO SCH (16:05)
[2018-10-28] MEDS: CARVEDILOL 12.5 MG TAB PO SCH ×2 (16:05→21:24)
[2018-10-28] MEDS: SERTRALINE HCL 100 MG TABLET PO SCH (16:06)
[2018-10-28] MEDS: METOPROLOL TARTRATE 1 MG/ML VIAL IV SCH ×2 (16:36→18:20)
[2018-10-28] MEDS: NITROGLYCERIN 2% OINTMENT 30GM TUBE EXT SCH ×2 (16:44→21:26)
--- NOTE | 2018-10-28 17:29 | Ultrasound Report ---
US gallbladder HISTORY: Nausea. Vomiting. persistent nausea/emesis COMPARISON: None. FINDINGS: Ultrasonic evaluation of the right upper quadrant shows the gallbladder to be normal. Common bile jazmin t is 5 mm. Moderate fatty infiltration of liver. Pancreas and right kidney appear unremarkable. There is a nonobstructing lower pole right renal calcification. IMPRESSION: 1. No acute process. 2. Normal gallbladder and bile ducts. 3. 5 mm nonobstructing lower pole right renal calcification. The above report was generated using voice recognition software. It may contain grammatical, syntax or spelling errors. Electronically signed by: Rick Nguyen M.D. 10/28/2018 5:28 PM
[2018-10-28] MEDS: ERYTHROMYCIN ETHYLSUCCINATE 400 MG TAB PO SCH (17:39)
[2018-10-28 19:48] LABS: Appearance Urine Clear (Clear); Bacteria Urine Automated Negative (Negative); Bilirubin Urine Negative (Negative); Blood Urine Trace (Negative); Color Urine Yellow; Epithelial Cell Urine Auto >30 /lpf (0-5); Glucose Urine UA 2+ (Negative); Ketones Urine Trace (Negative); Leukocyte Esterase Urine Negative (Negative); Nitrite Urine Negative (Negative); Protein Urine 4+ (Negative); Urobilinogen Urine Negative (Negative); pH Urine 6.5 (4.5-7.5)
[2018-10-28 19:56] LABS: Amorphous Sediment Urine Present (None Prsent); Sperm Urine Present (None Prsent)
[2018-10-29] MEDS: ONDANSETRON INJ 2 MG/ML 2 ML VIAL IV PRN ×2 (03:08→10:13)
[2018-10-29] MEDS: NITROGLYCERIN 2% OINTMENT 30GM TUBE EXT SCH ×3 (05:03→19:16)
[2018-10-29] MEDS: METOCLOPRAMIDE HCL INJ 5 MG/ML 2 ML VIAL IV SCH ×3 (06:10→19:23)
[2018-10-29] MEDS: METOPROLOL TARTRATE 1 MG/ML VIAL IV SCH ×4 (06:12→19:23)
[2018-10-29 07:12] LABS: Basophils # (auto) 0.02 K/uL (0-0.2); Basophils % (auto) 0.1 %; Hematocrit (blood only) 29.7 % (42-52); Hemoglobin 10.1 g/dL (14.0-18.0); Immature Granulocytes # (auto) 0.08 K/uL (0.00-0.02); Immature Granulocytes % (auto) 0.4 %; Lymphocytes # (auto) 1.11 K/uL (1.2-3.4); Lymphocytes % (auto) 5.3 %; Mean Corpuscular Volume 88.4 fL (80-100); Mean Platelet Volume 8.9 fL (7.4-10.4); Monocytes # (auto) 1.24 K/uL (0.11-0.59); Monocytes % (auto) 5.9 %; Neutrophils % (auto) 88.3 %; Platelet Count 314 K/uL (130-400); RDW Coefficient of Variation 14.2 % (11.5-14.5); RDW Standard Deviation 45.8 fL (36.4-46.3); Red Blood Count 3.36 M/uL (4.7-6.1); White Blood Count 20.85 K/uL (4.8-10.8)
[2018-10-29 07:23] LABS: BUN Creatinine Ratio 10.8 (10-20); Calcium 7.7 mg/dl (8.5-10.1); Creatinine Clr Calc Pharmacy 15.5 ml/min; Est GFR (African American) 15.2; Est GFR (Non-African American) 13.1; Potassium 3.5 mmol/L (3.5-5.1)
[2018-10-29] MEDS ORDERED: FAMOTIDINE 20MG/5ML IV PUSH IV STA (08:21)
[2018-10-29] MEDS ORDERED: PROCHLORPERAZINE 5 MG in SYRINGE 4 ML IV ONE (08:30)
[2018-10-29] MEDS ORDERED: FAMOTIDINE 20 MG in SYRINGE 3 ML IV ONE (08:30)
[2018-10-29] MEDS ORDERED: INSULIN ASPART 100 UNITS/ML 3 ML PEN SC ONE (09:00)
[2018-10-29] MEDS ORDERED: IOVERSOL 100ml IV PRN (09:15)
[2018-10-29] MEDS ORDERED: MIDAZOLAM HCL 1 MG/ML 2ML VIAL ONE (09:22)
[2018-10-29] MEDS ORDERED: fentaNYL citrate 100 MCG/2 ML VIAL ONE (09:22)
[2018-10-29] MEDS ORDERED: HEPARIN (PORCINE) 1000 UNIT/ML 10 ML (CATH LAB USE ONLY) ONE (09:22)
[2018-10-29] MEDS ORDERED: NiCARDipine HCL INJ 2.5 MG/ML 10 ML AMP ONE (09:22)
[2018-10-29] MEDS ORDERED: NITROGLYCERIN/D5W 100MCG/ML 20ML SYR ONE (09:23)
--- NOTE | 2018-10-29 09:32 | CT Scan Report ---
CT abd pelvis IV con only CLINICAL HISTORY: 48 years-old Male presenting with persistent vomiting, etiology uncertain; ESRD. TECHNIQUE: Multidetector CT of the abdomen and pelvis was performed after the administration of intra venous contrast. IV contrast: 93 mL of Optiray 320. One or more dose lowering techniques were used co nsistent with the principles of ALARA (as low as reasonably achievable), including automatic exposure control, mA or kV adjustment to individual patient size, and/or use of iterative reconstruction. COMPARISON: 11/26/2017. CT DOSE (mGy.cm): The estimated cumulative dose is 385.13 mGycm. 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 Lung bases: Normal heart size. Small to moderate pericardial effusion new from prior. Arthe-oh-gdutoe te left pleural effusion, which is simple appearing, new from prior. Volume loss and consolidation in the left lower lobe likely atelectasis, new from prior. Right lung base clear. Liver: Normal morphology. No liver lesion. Patent hepatic vasculature. Periportal edema suggested. Biliary: No intrahepatic or extrahepatic biliary ductal dilatation. Normal gallbladder. Pancreas: Normal. Spleen: Normal. Adrenal glands: Normal. Kidneys and ureters: Nonobstructing 7 mm calculus at the lower pole of the right kidney. No additiona l calculus. Few well-defined hypodensities noted within the left kidney likely simple cysts. Mild non specific perinephric fat infiltration asymmetrically worse on the left. No hydronephrosis. Trace urot helial thickening may be present. Ureters nondistended. Bladder: Circumferential bladder wall thickening. Gas noted in the urinary bladder lumen possibly ind icating recent instrumentation or catheterization. Pelvic organs: Mild prostate enlargement likely secondary to benign prostatic hyperplasia. Bowel: Postsurgical changes of appendectomy. No bowel obstruction. Peritoneal cavity: Trace fluid in the abdomen and pelvis. No free intraperitoneal gas. Diffuse mild m esenteric edema. Lymph nodes: No enlarged lymph nodes in the abdomen or pelvis. Vasculature: Atherosclerosis of the normal caliber abdominal aorta. IVC patent. Abdominal wall: Diffuse body wall edema. Musculoskeletal: Prominent Schmorl's node with endplate deformity in the lower thoracic spine. IMPRESSION: 1. Interval development of a small to moderate pericardial effusion and small to moderate left pleur al effusion. Associated left basilar atelectasis. 2. Volume overload evidenced by effusions, anasarca, trace ascites and periportal edema. 3. Bladder wall thickening with subtle urothelial thickening suggests cystitis with upper tract invo lvement of infection. The focus of gas within the bladder lumen is suspected to relate to catheteriza tion. Correlate with urinalysis. 4. Asymmetric left greater than right perinephric fat infiltration could raise concern for developin g pyelonephritis. No other convincing evidence of pyelonephritis at this time. 5. Mild prostatomegaly. Correlate with rectal exam to exclude prostatitis as prostatomegaly may not be expected in a patient of this age. 6. Nonobstructing 7 mm right renal calculus. No hydronephrosis. Electronically signed by: Jose Zaldivar M.D. 10/29/2018 9:30 AM
--- NOTE | 2018-10-29 09:55 | Nephrology Progress Note ---
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 s/p thoracentesis earlier this admission w/ transudative effusion from renal failure/ vol OL. Pt getting set up at [facility] for outpt dialysis: s/p 10/26 TDC placement at [facility]. Given challenges of OP f/u and self care and very symptomatic gastroparesis, not an immediate PD candidate though that could be discussed as OP. pt agreeable to [facility]ccity hospital HD. -cont daily bmp -cont strict I/0 >first HD tx on 10/26; next one 10/27 3hr; plan next HD 10/29 as bedside >> will do lower flows/minimal uf to minimize hemodynamic changes >ideally then start OP dialysis chronically at [facility] on 10/29>>pls have case mgt assist w/ this admissions process >>Dr Townsend's help much appreciated (2) Anemia: Patient with anemia of ESRD. Hemoglobin of 9 on 10/23. Iron stores adequate -started low dose joao 10/27. (3) Hypertension: His blood pressure is high today on amlodipine 10 mg daily, coreg 12.5 mg daily >> -started hydralazine 50 mg bid; bp meds for now as per cardiology (4) Nausea and vomiting: defer to primary service on this; has been an issue prior to hd but txs can certainly complicate N mgt; cardiac/ GI eval in process > may need GI eval if all negative Subjective seen on rounds this am about 0750; states he feels "terrible" d/t ongoing N/ dry heaving. states it is qualitatively different than customary/chronic N. no chest pain, no sob, no joint/mm pain. no AR on tele; cardiology following > for c cath today to evaluate new WMA on TTE; also w/ ongoing abd pain/ N/V, CT w/ con planned Review of Systems Review of Systems: All systems reviewed & are unremarkable except as noted in HPI & below Gastrointestinal: + belching, + heartburn, + nausea and + vomiting Physical Exam Constitutional: well developed and + thin lying flat on RA, A& 0 x 3, miserable, basin at head of bed Eyes: EOM intact bilaterally ENMT: Ears: no external ear abnormality Nose: no external nose abnormality Mouth: + dry oral mucous membranes Neck: no nuchal rigidity Respiratory: normal respiratory effort Auscultation: + diminished lung sounds Cardiovascular: RRR, no murmur, no edema Gastrointestinal (Abdomen): Inspection/Auscultation: normal bowel sounds Percussion/Palpation: abdomen soft; abdomen nontender Musculoskeletal: Extremities: strength 5/5 throughout Skin: no rashes, warm and dry Neurologic: spicer, fluent speech Psychiatric: Orientation: alert and oriented x 3 Eye Contact: good eye contact Speech: normal rate/rhythm/volume of speech Affect: + depressed affect, + anxious affect and + flat affect Results & Data Vital Signs (Past 12 Hours) Vital Signs Temp Pulse Pulse Resp BP BP BP 10/29/18 07:00 36.9 C 77 16 160/79 H 10/29/18 06:12 77 160/75 H 10/29/18 03:01 36.4 C L 79 18 148/72 H 10/29/18 00:00 80 168/85 H 10/28/18 23:00 37.4 C 82 16 164/85 H 10/28/18 22:41 170/87 H 10/28/18 22:20 80 Pulse Ox 10/29/18 07:00 95 10/29/18 06:12 10/29/18 03:01 93 10/29/18 00:00 10/28/18 23:00 95 10/28/18 22:41 10/28/18 22:20 Laboratory Results Abnormal lab results 10/28/18 10/28/18 10/28/18 Range/Units 10:11 11:26 12:25 WBC (4.8-10.8) K/uL RBC (4.7-6.1) M/uL Hgb (14.0-18.0) g/dL Hct (42-52) % Immature Gran # (Auto) (0.00-0.02) K/uL Neut # (Auto) (1.4-6.5) K/uL Lymph # (Auto) (1.2-3.4) K/uL Grant # (Auto) (0.11-0.59) K/uL Sodium (136-145) mmol/L BUN (7-18) mg/dl Creatinine (0.6-1.4) mg/dl Glucose (70-99) mg/dl POC Glucose 230 H 205 H 159 H (70-99) Calcium (8.5-10.1) mg/dl Urine Protein (Negative) Urine Glucose (UA) (Negative) Urine Ketones (Negative) Urine Blood (Negative) Urine WBC (Auto) (0-5) /hpf Urine RBC (Auto) (0-4) /hpf U Epithel Cells (Auto) (0-5) /lpf Amorphous Sediment (None Prsent) Urine Sperm (None Prsent) 10/28/18 10/28/18 10/28/18 Range/Units 13:40 14:59 16:02 WBC (4.8-10.8) K/uL RBC (4.7-6.1) M/uL Hgb (14.0-18.0) g/dL Hct (42-52) % Immature Gran # (Auto) (0.00-0.02) K/uL Neut # (Auto) (1.4-6.5) K/uL Lymph # (Auto) (1.2-3.4) K/uL Grant # (Auto) (0.11-0.59) K/uL Sodium (136-145) mmol/L BUN (7-18) mg/dl Creatinine (0.6-1.4) mg/dl Glucose (70-99) mg/dl POC Glucose 129 H 116 H 112 H (70-99) Calcium (8.5-10.1) mg/dl Urine Protein (Negative) Urine Glucose (UA) (Negative) Urine Ketones (Negative) Urine Blood (Negative) Urine WBC (Auto) (0-5) /hpf Urine RBC (Auto) (0-4) /hpf U Epithel Cells (Auto) (0-5) /lpf Amorphous Sediment (None Prsent) Urine Sperm (None Prsent) 10/28/18 10/28/18 10/28/18 Range/Units 17:03 18:00 18:03 WBC (4.8-10.8) K/uL RBC (4.7-6.1) M/uL Hgb (14.0-18.0) g/dL Hct (42-52) % Immature Gran # (Auto) (0.00-0.02) K/uL Neut # (Auto) (1.4-6.5) K/uL Lymph # (Auto) (1.2-3.4) K/uL Grant # (Auto) (0.11-0.59) K/uL Sodium (136-145) mmol/L BUN (7-18) mg/dl Creatinine (0.6-1.4) mg/dl Glucose (70-99) mg/dl POC Glucose 117 H 123 H (70-99) Calcium (8.5-10.1) mg/dl Urine Protein 4+ H (Negative) Urine Glucose (UA) 2+ H (Negative) Urine Ketones Trace H (Negative) Urine Blood Trace H (Negative) Urine WBC (Auto) 5-10 H (0-5) /hpf Urine RBC (Auto) 5-10 H (0-4) /hpf U Epithel Cells (Auto) >30 H (0-5) /lpf Amorphous Sediment Present A (None Prsent) Urine Sperm Present A (None Prsent) 10/28/18 10/28/18 10/28/18 Range/Units 19:04 20:17 21:17 WBC (4.8-10.8) K/uL RBC (4.7-6.1) M/uL Hgb (14.0-18.0) g/dL Hct (42-52) % Immature Gran # (Auto) (0.00-0.02) K/uL Neut # (Auto) (1.4-6.5) K/uL Lymph # (Auto) (1.2-3.4) K/uL Grant # (Auto) (0.11-0.59) K/uL Sodium (136-145) mmol/L BUN (7-18) mg/dl Creatinine (0.6-1.4) mg/dl Glucose (70-99) mg/dl POC Glucose 148 H 145 H 169 H (70-99) Calcium (8.5-10.1) mg/dl Urine Protein (Negative) Urine Glucose (UA) (Negative) Urine Ketones (Negative) Urine Blood (Negative) Urine WBC (Auto) (0-5) /hpf Urine RBC (Auto) (0-4) /hpf U Epithel Cells (Auto) (0-5) /lpf Amorphous Sediment (None Prsent) Urine Sperm (None Prsent) 10/28/18 10/28/18 10/29/18 Range/Units 23:02 23:55 01:05 WBC (4.8-10.8) K/uL RBC (4.7-6.1) M/uL Hgb (14.0-18.0) g/dL Hct (42-52) % Immature Gran # (Auto) (0.00-0.02) K/uL Neut # (Auto) (1.4-6.5) K/uL Lymph # (Auto) (1.2-3.4) K/uL Grant # (Auto) (0.11-0.59) K/uL Sodium (136-145) mmol/L BUN (7-18) mg/dl Creatinine (0.6-1.4) mg/dl Glucose (70-99) mg/dl POC Glucose 194 H 188 H 180 H (70-99) Calcium (8.5-10.1) mg/dl Urine Protein (Negative) Urine Glucose (UA) (Negative) Urine Ketones (Negative) Urine Blood (Negative) Urine WBC (Auto) (0-5) /hpf Urine RBC (Auto) (0-4) /hpf U Epithel Cells (Auto) (0-5) /lpf Amorphous Sediment (None Prsent) Urine Sperm (None Prsent) 10/29/18 10/29/18 10/29/18 Range/Units 01:55 02:59 04:00 WBC (4.8-10.8) K/uL RBC (4.7-6.1) M/uL Hgb (14.0-18.0) g/dL Hct (42-52) % Immature Gran # (Auto) (0.00-0.02) K/uL Neut # (Auto) (1.4-6.5) K/uL Lymph # (Auto) (1.2-3.4) K/uL Grant # (Auto) (0.11-0.59) K/uL Sodium (136-145) mmol/L BUN (7-18) mg/dl Creatinine (0.6-1.4) mg/dl Glucose (70-99) mg/dl POC Glucose 245 H 261 H 235 H (70-99) Calcium (8.5-10.1) mg/dl Urine Protein (Negative) Urine Glucose (UA) (Negative) Urine Ketones (Negative) Urine Blood (Negative) Urine WBC (Auto) (0-5) /hpf Urine RBC (Auto) (0-4) /hpf U Epithel Cells (Auto) (0-5) /lpf Amorphous Sediment (None Prsent) Urine Sperm (None Prsent) 10/29/18 10/29/18 10/29/18 Range/Units 04:58 06:10 06:18 WBC 20.85 H (4.8-10.8) K/uL RBC 3.36 L (4.7-6.1) M/uL Hgb 10.1 L (14.0-18.0) g/dL Hct 29.7 L (42-52) % Immature Gran # (Auto) 0.08 H (0.00-0.02) K/uL Neut # (Auto) 18.40 H (1.4-6.5) K/uL Lymph # (Auto) 1.11 L (1.2-3.4) K/uL Grant # (Auto) 1.24 H (0.11-0.59) K/uL Sodium (136-145) mmol/L BUN (7-18) mg/dl Creatinine (0.6-1.4) mg/dl Glucose (70-99) mg/dl POC Glucose 251 H 257 H (70-99) Calcium (8.5-10.1) mg/dl Urine Protein (Negative) Urine Glucose (UA) (Negative) Urine Ketones (Negative) Urine Blood (Negative) Urine WBC (Auto) (0-5) /hpf Urine RBC (Auto) (0-4) /hpf U Epithel Cells (Auto) (0-5) /lpf Amorphous Sediment (None Prsent) Urine Sperm (None Prsent) 10/29/18 10/29/18 10/29/18 Range/Units 06:18 06:58 08:02 WBC (4.8-10.8) K/uL RBC (4.7-6.1) M/uL Hgb (14.0-18.0) g/dL Hct (42-52) % Immature Gran # (Auto) (0.00-0.02) K/uL Neut # (Auto) (1.4-6.5) K/uL Lymph # (Auto) (1.2-3.4) K/uL Grant # (Auto) (0.11-0.59) K/uL Sodium 135 L (136-145) mmol/L BUN 53 H (7-18) mg/dl Creatinine 4.86 H* D (0.6-1.4) mg/dl Glucose 248 H (70-99) mg/dl POC Glucose 227 H 218 H (70-99) Calcium 7.7 L (8.5-10.1) mg/dl Urine Protein (Negative) Urine Glucose (UA) (Negative) Urine Ketones (Negative) Urine Blood (Negative) Urine WBC (Auto) (0-5) /hpf Urine RBC (Auto) (0-4) /hpf U Epithel Cells (Auto) (0-5) /lpf Amorphous Sediment (None Prsent) Urine Sperm (None Prsent) (1) Anemia Anemia type: unspecified type Qualified Code(s): D64.9 - Anemia, unspecified (2) Hypertension Hypertension type: essential hypertension Qualified Code(s): I10 - Essential (primary) hypertension (3) Nausea and vomiting Vomiting type: unspecified Vomiting Intractability: intractable Qualified Code(s): R11.2 - Nausea with vomiting, unspecified
[2018-10-29] MEDS ORDERED: HEPARIN SOD (PORCINE) 1000 UNIT/ML 10 ML VIAL IV ONE (09:58)
[2018-10-29] MEDS ORDERED: SODIUM CHLORIDE 0.9% 1000ML 1,000 ML IV PRN (09:58)
[2018-10-29] MEDS ORDERED: ONDANSETRON INJ 2 MG/ML 2 ML VIAL ONE (10:00)
--- NOTE | 2018-10-29 10:03 | Pre Anesthesia Assessment ---
Date of Service October 29, 2018 Pre Sedation Assessment Vital Signs Temp Pulse Pulse Pulse Resp BP BP 10/29/18 07:00 36.9 C 77 16 10/29/18 06:12 77 160/75 H 10/29/18 03:01 36.4 C L 79 18 10/29/18 00:00 80 168/85 H 10/28/18 23:00 37.4 C 82 16 164/85 H 10/28/18 22:41 170/87 H 10/28/18 22:20 80 10/28/18 19:02 37.6 C H 75 16 166/83 H 10/28/18 18:20 74 189/94 H 10/28/18 16:36 74 184/94 H 10/28/18 16:00 37.3 C 79 16 184/94 H 10/28/18 11:42 37.1 C 78 16 174/88 H BP Pulse Ox 10/29/18 07:00 160/79 H 95 10/29/18 06:12 10/29/18 03:01 148/72 H 93 10/29/18 00:00 10/28/18 23:00 95 10/28/18 22:41 10/28/18 22:20 10/28/18 19:02 93 10/28/18 18:20 10/28/18 16:36 10/28/18 16:00 97 10/28/18 11:42 98 Cardiovascular + regular rate Respiratory + respiratory effort normal Pre-Sedation Airway Assessment Smoking Status: Never smoker Hx Sleep Apnea: No Hx Difficult Intubation: No Short, Thick Neck: No Thyromental Distance: > or= 3.5 Finger Breadths Oral Cavity: + WNL Mallampati Class: III ASA: ASA3 Procedure Planning Contraindications for Sedation: none Current Medications Reviewed: Yes Notes The planned sedation has been discussed with the patient. Informed Consent was obtained. I have identified the patient, determined the appropriateness of sedation and have assessed the patient immediately prior to the procedure. All medicine(s) and interventions are by my order.
--- NOTE | 2018-10-29 10:27 | Cardiac Catheterization ---
Cardiac Cath Procedure: Brief Procedure Date October 29, 2018 Pre-Procedure Diagnosis Pre-Procedure Diagnosis: Non STEMI AUC Score AUC Score: 7 Post-Procedure Diagnosis Post-Procedure Diagnosis: Mild CAD Procedure(s) Performed Procedure(s) Performed: Coronary Angiography and Left Heart Cath Collections Curator Dewayne Spivey MD Crop Or Livestock Tenant Farmer(s) none Estimated Blood Loss Estimated Blood Loss: 10cc Medication(s) Medication(s): Fentanyl, Heparin, Nicardipine, Nitroglycerin and Versed Preliminary Findings Mild, non-obstructive CAD. Right dominant system. Normal LV filling pressures. Recommendations Recommendations: Medical Therapy and/or Counseling Specimens Specimens: None Procedural Complication(s) None Disposition PCU
[2018-10-29] MEDS ORDERED: CEFEPIME CONSULT ACTIVE PRN (10:48)
[2018-10-29] MEDS: INSULIN GLARGINE SOLOSTAR 100 UNITS/ML 3 ML PEN SC SCH (12:11)
[2018-10-29] MEDS: CEFEPIME 1,000 MG in SYRINGE 0 ML IV SCH ×2 (12:13→19:38)
[2018-10-29] MEDS: INSULIN ASPART 100 UNITS/ML 3 ML PEN SC SCH ×4 (12:13→20:59)
--- NOTE | 2018-10-29 13:14 | Pharmacy Report ---
Pharmacy Glycemic Short Note 2 - Date of Service October 29, 2018 - Glycemic Short BSG Results (Last 24 hours): 10/28/18 10/28/18 10/28/18 13:40 14:59 16:02 Glucose POC Glucose 129 H 116 H 112 H 10/28/18 10/28/18 10/28/18 17:03 18:03 19:04 Glucose POC Glucose 117 H 123 H 148 H 10/28/18 10/28/18 10/28/18 20:17 21:17 23:02 Glucose POC Glucose 145 H 169 H 194 H 10/28/18 10/29/18 10/29/18 23:55 01:05 01:55 Glucose POC Glucose 188 H 180 H 245 H 10/29/18 10/29/18 10/29/18 02:59 04:00 04:58 Glucose POC Glucose 261 H 235 H 251 H 10/29/18 10/29/18 10/29/18 06:10 06:18 06:58 Glucose 248 H POC Glucose 257 H 227 H 10/29/18 10/29/18 08:02 11:25 Glucose POC Glucose 218 H 247 H OUTPATIENT ANTIDIABETIC REGIMEN: * Humalog insulin pump * Basal rates: 0000 0.5units/hr; 0300 0.6units/hr; 0700 1 unit/hr * Correction factor: 35mg/dL/unit * Carb coverage: 1 unit per 10 gm CHO from 7564-0604, then 1 unit per 7gm CHO from 3907-5982 * A1c = 6.5% on 10/21/18 ASSESSMENT: * Pt currently receiving IV insulin infusion for sustained hyperglycemia with poor PO intake * Pt with new onset pyelonephritis. May be contributing to hyperglycemia. * Original plan was to transition off of IV insulin infusion to patient's outpatient insulin pump. However, with new UTI, cardiac cath, and ongoing abdominal pain will transition to SQ basal bolus insulin of insulin pump. Pt is not able to manage his own pump reliably without his parent's help, therefore, will wait to resume pump closer to discharge when pt more stabiliz ed. * Pt went to ear mold laboratory technician and CT this morning - gave 2 units of SQ NovoLog to cover patient while IV insulin on hold for these procedures. PLAN FOR INPATIENT GLYCEMIC CONTROL: * Transition from IV insulin to SQ basal bolus insulin regimen. * Basal insulin * Lantus 14 units SQ Q24hrs - doses given in the morning. * This dosing is consistent with previous admissions * This is less than outpatient basal insulin dosing per pump settings. Pt with reduced PO intake * Bolus insulin * NovoLog per scale ACHS or Q6hrs while NPO * Goal Range: Low 100 mg/dL - High 150 mg/dL * Correction Factor: 30 mg/dL/unit * Nutritional / Prandial insulin per carb ratio of 1 unit per 10 grams CHO consumed PLAN FOR DISCHARGE: * May resume insulin pump on discharge
[2018-10-29] MEDS: HEPARIN SOD (PORCINE) 1000 UNIT/ML 10 ML VIAL IV SCH (16:52)
[2018-10-29] MEDS: CARVEDILOL 12.5 MG TAB PO SCH ×2 (18:16→20:58)
[2018-10-29] MEDS: HydrALAZINE TAB 50 MG TAB PO SCH ×2 (18:16→20:58)
[2018-10-29] MEDS: AMLODIPINE BESYLATE 5 MG TAB PO SCH (18:16)
[2018-10-29] MEDS: SERTRALINE HCL 100 MG TABLET PO SCH (18:16)
--- NOTE | 2018-10-29 19:22 | Cardiology Progress Note ---
Date of Service October 29, 2018 Assessment & Plan (1) Elevated troponin: I does appear to be high risk for coronary disease, angiography today did not demonstrate any obstructive disease. It is unclear why he has some mild elevations in his biomarkers, but it did not appear to require any intervention other than continue preventive measures. Will continue on atorvastatin. I do not believe he requires a daily aspirin. Adequate control of blood pressure and other cardiac risk factors according to published guidelines would be recommended. Subjective This afternoon the patient felt much better. It seems that his nausea and retching have resolved. He was on dialysis and did not complain of breathing trouble or chest discomfort. Review of Systems Review of Systems: Per HPI Physical Exam Physical Exam: The patient is alert and oriented. Mood and affect appeared normal. He answered all questions appropriately. Neuro: Cranial nerves intact Evaluation of the right radial access site did not reveal any evidence of hematoma. This appears to be good perfusion of the hand. No ecchymosis. Results & Data Vital Signs (Past 12 Hours) Vital Signs Temp Pulse Pulse Pulse Pulse Resp BP 10/29/18 18:16 73 132/68 10/29/18 18:00 73 134/70 10/29/18 17:48 36.9 C 76 10/29/18 17:40 73 146/81 H 10/29/18 17:21 76 168/94 H 10/29/18 16:56 73 157/90 H 10/29/18 16:42 74 151/88 H 10/29/18 16:20 73 157/91 H 10/29/18 16:00 78 183/96 H 10/29/18 15:45 73 182/97 H 10/29/18 15:30 36.5 C 79 19 10/29/18 15:15 36.9 C 78 10/29/18 12:14 78 194/94 H 10/29/18 10:44 37 C 78 18 BP Pulse Ox 10/29/18 18:16 10/29/18 18:00 10/29/18 17:48 146/81 H 10/29/18 17:40 10/29/18 17:21 10/29/18 16:56 10/29/18 16:42 10/29/18 16:20 10/29/18 16:00 10/29/18 15:45 10/29/18 15:30 177/92 H 95 10/29/18 15:15 10/29/18 12:14 10/29/18 10:44 200/96 H 93 Laboratory Results Abnormal Lab Results 10/28/18 10/28/18 10/28/18 18:00 20:17 21:17 WBC RBC Hgb Hct MCV MCH MCHC RDW Std Deviation RDW Coeff of Kami Plt Count MPV Immature Gran % (Auto) Neut % (Auto) Lymph % (Auto) [place] % (Auto) Eos % (Auto) Baso % (Auto) Immature Gran # (Auto) Neut # (Auto) Lymph # (Auto) [place] # (Auto) Eos # (Auto) Baso # (Auto) Sodium Potassium Chloride Carbon Dioxide Anion Gap BUN Creatinine Est Cr Clr Drug Dosing Est GFR ( Amer) Est GFR (Non-Af Amer) BUN/Creatinine Ratio Glucose POC Glucose 145 H 169 H Calcium Urine Color Yellow Urine Appearance Clear Urine pH 6.5 Ur Specific [place] 1.020 Urine Protein 4+ H Urine Glucose (UA) 2+ H Urine Ketones Trace H Urine Blood Trace H Urine Nitrite Negative Urine Bilirubin Negative Urine Urobilinogen Negative Ur Leukocyte Esterase Negative Urine WBC (Auto) 5-10 H Urine RBC (Auto) 5-10 H U Hyaline Cast (Auto) 1-5 U Epithel Cells (Auto) >30 H Urine Bacteria (Auto) Negative Ur Renal Epithelial Cell Not Reportable Amorphous Sediment Present A Urine Sperm Present A 10/28/18 10/28/18 10/29/18 23:02 23:55 01:05 WBC RBC Hgb Hct MCV MCH MCHC RDW Std Deviation RDW Coeff of Kami Plt Count MPV Immature Gran % (Auto) Neut % (Auto) Lymph % (Auto) [place] % (Auto) Eos % (Auto) Baso % (Auto) Immature Gran # (Auto) Neut # (Auto) Lymph # (Auto) [place] # (Auto) Eos # (Auto) Baso # (Auto) Sodium Potassium Chloride Carbon Dioxide Anion Gap BUN Creatinine Est Cr Clr Drug Dosing Est GFR ( Amer) Est GFR (Non-Af Amer) BUN/Creatinine Ratio Glucose POC Glucose 194 H 188 H 180 H Calcium Urine Color Urine Appearance Urine pH Ur Specific [place] Urine Protein Urine Glucose (UA) Urine Ketones Urine Blood Urine Nitrite Urine Bilirubin Urine Urobilinogen Ur Leukocyte Esterase Urine WBC (Auto) Urine RBC (Auto) U Hyaline Cast (Auto) U Epithel Cells (Auto) Urine Bacteria (Auto) Ur Renal Epithelial Cell Amorphous Sediment Urine Sperm 10/29/18 10/29/18 10/29/18 01:55 02:59 04:00 WBC RBC Hgb Hct MCV MCH MCHC RDW Std Deviation RDW Coeff of Kami Plt Count MPV Immature Gran % (Auto) Neut % (Auto) Lymph % (Auto) [place] % (Auto) Eos % (Auto) Baso % (Auto) Immature Gran # (Auto) Neut # (Auto) Lymph # (Auto) [place] # (Auto) Eos # (Auto) Baso # (Auto) Sodium Potassium Chloride Carbon Dioxide Anion Gap BUN Creatinine Est Cr Clr Drug Dosing Est GFR ( Amer) Est GFR (Non-Af Amer) BUN/Creatinine Ratio Glucose POC Glucose 245 H 261 H 235 H Calcium Urine Color Urine Appearance Urine pH Ur Specific [place] Urine Protein Urine Glucose (UA) Urine Ketones Urine Blood Urine Nitrite Urine Bilirubin Urine Urobilinogen Ur Leukocyte Esterase Urine WBC (Auto) Urine RBC (Auto) U Hyaline Cast (Auto) U Epithel Cells (Auto) Urine Bacteria (Auto) Ur Renal Epithelial Cell Amorphous Sediment Urine Sperm 10/29/18 10/29/18 10/29/18 04:58 06:10 06:18 WBC 20.85 H RBC 3.36 L Hgb 10.1 L Hct 29.7 L MCV 88.4 MCH 30.1 MCHC 34.0 RDW Std Deviation 45.8 RDW Coeff of Kami 14.2 Plt Count 314 MPV 8.9 Immature Gran % (Auto) 0.4 Neut % (Auto) 88.3 Lymph % (Auto) 5.3 [place] % (Auto) 5.9 Eos % (Auto) 0.0 Baso % (Auto) 0.1 Immature Gran # (Auto) 0.08 H Neut # (Auto) 18.40 H Lymph # (Auto) 1.11 L [place] # (Auto) 1.24 H Eos # (Auto) 0.00 Baso # (Auto) 0.02 Sodium Potassium Chloride Carbon Dioxide Anion Gap BUN Creatinine Est Cr Clr Drug Dosing Est GFR ( Amer) Est GFR (Non-Af Amer) BUN/Creatinine Ratio Glucose POC Glucose 251 H 257 H Calcium Urine Color Urine Appearance Urine pH Ur Specific [place] Urine Protein Urine Glucose (UA) Urine Ketones Urine Blood Urine Nitrite Urine Bilirubin Urine Urobilinogen Ur Leukocyte Esterase Urine WBC (Auto) Urine RBC (Auto) U Hyaline Cast (Auto) U Epithel Cells (Auto) Urine Bacteria (Auto) Ur Renal Epithelial Cell Amorphous Sediment Urine Sperm 10/29/18 10/29/18 10/29/18 06:18 06:58 08:02 WBC RBC Hgb Hct MCV MCH MCHC RDW Std Deviation RDW Coeff of Kami Plt Count MPV Immature Gran % (Auto) Neut % (Auto) Lymph % (Auto) [place] % (Auto) Eos % (Auto) Baso % (Auto) Immature Gran # (Auto) Neut # (Auto) Lymph # (Auto) [place] # (Auto) Eos # (Auto) Baso # (Auto) Sodium 135 L Potassium 3.5 Chloride 98 Carbon Dioxide 27 Anion Gap 10.0 BUN 53 H Creatinine 4.86 H* D Est Cr Clr Drug Dosing 15.5 Est GFR ( Amer) 15.2 Est GFR (Non-Af Amer) 13.1 BUN/Creatinine Ratio 10.8 Glucose 248 H POC Glucose 227 H 218 H Calcium 7.7 L Urine Color Urine Appearance Urine pH Ur Specific [place] Urine Protein Urine Glucose (UA) Urine Ketones Urine Blood Urine Nitrite Urine Bilirubin Urine Urobilinogen Ur Leukocyte Esterase Urine WBC (Auto) Urine RBC (Auto) U Hyaline Cast (Auto) U Epithel Cells (Auto) Urine Bacteria (Auto) Ur Renal Epithelial Cell Amorphous Sediment Urine Sperm 10/29/18 10/29/18 11:25 16:34 WBC RBC Hgb Hct MCV MCH MCHC RDW Std Deviation RDW Coeff of Kami Plt Count MPV Immature Gran % (Auto) Neut % (Auto) Lymph % (Auto) [place] % (Auto) Eos % (Auto) Baso % (Auto) Immature Gran # (Auto) Neut # (Auto) Lymph # (Auto) [place] # (Auto) Eos # (Auto) Baso # (Auto) Sodium Potassium Chloride Carbon Dioxide Anion Gap BUN Creatinine Est Cr Clr Drug Dosing Est GFR ( Amer) Est GFR (Non-Af Amer) BUN/Creatinine Ratio Glucose POC Glucose 247 H 131 H Calcium Urine Color Urine Appearance Urine pH Ur Specific [place] Urine Protein Urine Glucose (UA) Urine Ketones Urine Blood Urine Nitrite Urine Bilirubin Urine Urobilinogen Ur Leukocyte Esterase Urine WBC (Auto) Urine RBC (Auto) U Hyaline Cast (Auto) U Epithel Cells (Auto) Urine Bacteria (Auto) Ur Renal Epithelial Cell Amorphous Sediment Urine Sperm Diagnostic Findings Patient underwent coronary angiography today which did not reveal any evidence of obstructive disease. Normal left ventricular filling pressures.
--- NOTE | 2018-10-29 19:54 | Hospitalist Progress Note ---
Date of Service October 29, 2018 Assessment & Plan (1) Pyelonephritis: Suspected. Low-grade temp last evening along with worsening WBC count in the last [address] of abd/pelvis with suggestion of pyelo along with BPH & cystitis. Send urine cx. Check blood cultures including 1 set from [facility] (ok to obtain per nephrology). Start cefepime as he is at risk of more serious gram negatives). Low threshold for vanco to cover MRSA/enterococcus. If he indeed has UTI/pyelo this may explain some of his refractory nausea/emesis. Present on Admission?: No (2) Nausea and vomiting: Extensive w/u to date led to no etiology. Thus, obtained CT abd/pelvis this AM showing possible pyelonephritis. Findings concerning for prostatitis/cystitis also seen. No hydronephrosis/obstruction. Thus, perhaps urinary infection was contributing to these GI symptoms. He remains on scheduled IV reglan. If nausea/emesis recur then formal GI consultation. (3) Neurogenic bladder: This has been observed on prior hospital stays and this stay. He may require intermittent I/O catheterization since he still makes about a liter of urine each day. Due to diabetic neuropathy? Lumbar spine issues? other? Recommend formal urological evaluation after d/c. DAVIS tomorrow to check prostate. (4) ESRD (end stage renal disease): Patient had progressive worsening of his baseline CKD over the last 12 months. He has been followed by [facility] closely this admission and on previous admissions. He presented with volume overload/anasarca along with mild hyperkalemia earlier this stay. He did indeed diurese well enough to improve his volume status but it was felt he had reached ESRD status. He also underwent thoracentesis yielding 1300cc of transudative fluid. He is now labeled as ESRD. s/p HD sessions x 2 this week. Scheduled for HD today. Appreciate nephrology assistance. (5) Acute worsening of stage 4 chronic kidney disease: baseline Cr high 3's/low 4's now with development of ESRD and need for HD (6) Volume overload: on the basis of worsening CKD and development of ESRD rather than CHF volume status improved s/p diuresis and 2 prior HD sessions see "ESRD" above (7) Chronic systolic (congestive) heart failure: EF 45-50% on echo this admission. EF was 55-60% on echo in August of this year. There were regional wall motion abnormalities on most recent echo but cath today ruled out significant CAD. Cardiology consult appreciated Continue coreg. Needs statin. Cardiology stated we can defer on aspirin for now. (8) Gastroparesis: resumed erythromycin before meals but had prolific emesis/nausea this week despite using the EES. EES now on hold reglan q6h IV being used in its place. (9) Anemia: defer iron therapy, if needed, to nephrology H/H acceptable (10) Depression: continue SSRI numerous stressors last over the last year -- divorce, move from his hometown of [place] to [place], worsening health status, etc consider psych consult - patient agreeable (11) Type I diabetes mellitus: appreciate pharmacy glycemic control consultation & management no DKA on labs was on IV insulin drip due to NPO status in setting of nausea/emesis now back to SC basal-bolus regimen pharmacy managing and efforts appreciated (12) Hypertension: continue home medications stop IV lopressor stop nitropaste (13) Elevated troponin: likely myocardial demand ischemia in setting of vomiting and ESRD cath today with mild, nonobstructive CAD only (14) Nonobstructive atherosclerosis of coronary artery: as seen on cath today. statin, BB. no aspirin for now per Dr Spivey. (15) DVT prophylaxis: heparin SC q12h PT, OT evals will get psychiatry involved this weekend Subjective patient still with ongoing nausea and emesis along with dry heaves. had low grade temp last pm. he has had minimal amount of b/l flank pain last few days. he stated "I thought it was my compression fracture." still denies any abdominal pain, chest pain, or dyspnea. no orthopnea today. admits to feeling very depressed. only sees his 2 kids every 2 weeks for a couple of hours. 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 Review of Systems Constitutional: no chills and no anorexia Respiratory: no cough, no dyspnea, no dyspnea on exertion, no sputum production and no wheezing Cardiovascular: no chest pain Gastrointestinal: no abdominal pain, no nausea, no vomiting, no constipation and no diarrhea/loose stools Genitourinary: + difficulty urinating; no dysuria Integumentary: no rash Physical Exam Constitutional: + ill appearing and average body habitus; no altered mental status depressed/flat affect ENMT: external ear and nose normal, oropharynx normal Respiratory: no respiratory distress Auscultation: no rales, no rhonchi and no wheezes Cardiovascular: Rate/Rhythm: regular rate and regular rhythm Heart Sounds: normal S1 and normal S2; no murmur Vessels: posterior tibial pulses present and dorsalis pedis pulses present; no JVD Gastrointestinal (Abdomen): normal bowel sounds, soft, nontender, no hepatosplenomegaly minimal b/l flank tenderness Skin: no rash; permcath, right upper chest, clean/dry Psychiatric: Orientation: alert and oriented x 3 Mood: + depressed mood Results & Data Vital Signs (Past 12 Hours) Vital Signs Temp Pulse Pulse Pulse Pulse Resp BP 10/29/18 19:23 78 183/94 H 10/29/18 18:16 73 132/68 10/29/18 18:00 73 134/70 10/29/18 17:48 36.9 C 76 10/29/18 17:40 73 146/81 H 10/29/18 17:21 76 168/94 H 10/29/18 16:56 73 157/90 H 10/29/18 16:42 74 151/88 H 10/29/18 16:20 73 157/91 H 10/29/18 16:00 78 183/96 H 10/29/18 15:45 73 182/97 H 10/29/18 15:30 36.5 C 79 19 10/29/18 15:15 36.9 C 78 10/29/18 12:14 78 194/94 H 10/29/18 10:44 37 C 78 18 BP Pulse Ox 10/29/18 19:23 10/29/18 18:16 10/29/18 18:00 10/29/18 17:48 146/81 H 10/29/18 17:40 10/29/18 17:21 10/29/18 16:56 10/29/18 16:42 10/29/18 16:20 10/29/18 16:00 10/29/18 15:45 10/29/18 15:30 177/92 H 95 10/29/18 15:15 10/29/18 12:14 10/29/18 10:44 200/96 H 93 Laboratory Results Laboratory Results - last 24 hr 10/28/18 10/28/18 10/28/18 18:00 20:17 21:17 WBC RBC Hgb Hct MCV MCH MCHC RDW Std Deviation RDW Coeff of Kami Plt Count MPV Immature Gran % (Auto) Neut % (Auto) Lymph % (Auto) [place] % (Auto) Eos % (Auto) Baso % (Auto) Immature Gran # (Auto) Neut # (Auto) Lymph # (Auto) [place] # (Auto) Eos # (Auto) Baso # (Auto) Sodium Potassium Chloride Carbon Dioxide Anion Gap BUN Creatinine Est Cr Clr Drug Dosing Est GFR ( Amer) Est GFR (Non-Af Amer) BUN/Creatinine Ratio Glucose POC Glucose 145 H 169 H Calcium Ur Renal Epithelial Cell Not Reportable Amorphous Sediment Present A Urine Sperm Present A 10/28/18 10/28/18 10/29/18 23:02 23:55 01:05 WBC RBC Hgb Hct MCV MCH MCHC RDW Std Deviation RDW Coeff of Kami Plt Count MPV Immature Gran % (Auto) Neut % (Auto) Lymph % (Auto) [place] % (Auto) Eos % (Auto) Baso % (Auto) Immature Gran # (Auto) Neut # (Auto) Lymph # (Auto) [place] # (Auto) Eos # (Auto) Baso # (Auto) Sodium Potassium Chloride Carbon Dioxide Anion Gap BUN Creatinine Est Cr Clr Drug Dosing Est GFR ( Amer) Est GFR (Non-Af Amer) BUN/Creatinine Ratio Glucose POC Glucose 194 H 188 H 180 H Calcium Ur Renal Epithelial Cell Amorphous Sediment Urine Sperm 10/29/18 10/29/18 10/29/18 01:55 02:59 04:00 WBC RBC Hgb Hct MCV MCH MCHC RDW Std Deviation RDW Coeff of Kami Plt Count MPV Immature Gran % (Auto) Neut % (Auto) Lymph % (Auto) [place] % (Auto) Eos % (Auto) Baso % (Auto) Immature Gran # (Auto) Neut # (Auto) Lymph # (Auto) [place] # (Auto) Eos # (Auto) Baso # (Auto) Sodium Potassium Chloride Carbon Dioxide Anion Gap BUN Creatinine Est Cr Clr Drug Dosing Est GFR ( Amer) Est GFR (Non-Af Amer) BUN/Creatinine Ratio Glucose POC Glucose 245 H 261 H 235 H Calcium Ur Renal Epithelial Cell Amorphous Sediment Urine Sperm 10/29/18 10/29/18 10/29/18 04:58 06:10 06:18 WBC 20.85 H RBC 3.36 L Hgb 10.1 L Hct 29.7 L MCV 88.4 MCH 30.1 MCHC 34.0 RDW Std Deviation 45.8 RDW Coeff of Kami 14.2 Plt Count 314 MPV 8.9 Immature Gran % (Auto) 0.4 Neut % (Auto) 88.3 Lymph % (Auto) 5.3 [place] % (Auto) 5.9 Eos % (Auto) 0.0 Baso % (Auto) 0.1 Immature Gran # (Auto) 0.08 H Neut # (Auto) 18.40 H Lymph # (Auto) 1.11 L [place] # (Auto) 1.24 H Eos # (Auto) 0.00 Baso # (Auto) 0.02 Sodium Potassium Chloride Carbon Dioxide Anion Gap BUN Creatinine Est Cr Clr Drug Dosing Est GFR ( Amer) Est GFR (Non-Af Amer) BUN/Creatinine Ratio Glucose POC Glucose 251 H 257 H Calcium Ur Renal Epithelial Cell Amorphous Sediment Urine Sperm 10/29/18 10/29/18 10/29/18 06:18 06:58 08:02 WBC RBC Hgb Hct MCV MCH MCHC RDW Std Deviation RDW Coeff of Kami Plt Count MPV Immature Gran % (Auto) Neut % (Auto) Lymph % (Auto) [place] % (Auto) Eos % (Auto) Baso % (Auto) Immature Gran # (Auto) Neut # (Auto) Lymph # (Auto) [place] # (Auto) Eos # (Auto) Baso # (Auto) Sodium 135 L Potassium 3.5 Chloride 98 Carbon Dioxide 27 Anion Gap 10.0 BUN 53 H Creatinine 4.86 H* D Est Cr Clr Drug Dosing 15.5 Est GFR ( Amer) 15.2 Est GFR (Non-Af Amer) 13.1 BUN/Creatinine Ratio 10.8 Glucose 248 H POC Glucose 227 H 218 H Calcium 7.7 L Ur Renal Epithelial Cell Amorphous Sediment Urine Sperm 10/29/18 10/29/18 11:25 16:34 WBC RBC Hgb Hct MCV MCH MCHC RDW Std Deviation RDW Coeff of Kami Plt Count MPV Immature Gran % (Auto) Neut % (Auto) Lymph % (Auto) [place] % (Auto) Eos % (Auto) Baso % (Auto) Immature Gran # (Auto) Neut # (Auto) Lymph # (Auto) [place] # (Auto) Eos # (Auto) Baso # (Auto) Sodium Potassium Chloride Carbon Dioxide Anion Gap BUN Creatinine Est Cr Clr Drug Dosing Est GFR ( Amer) Est GFR (Non-Af Amer) BUN/Creatinine Ratio Glucose POC Glucose 247 H 131 H Calcium Ur Renal Epithelial Cell Amorphous Sediment Urine Sperm Diagnostic Findings CT abd/pelvis - IMPRESSION: 1. Interval development of a small to moderate pericardial effusion and small to moderate left pleural effusion. Associated left basilar atelectasis. 2. Volume overload evidenced by effusions, anasarca, trace ascites and periportal edema. 3. Bladder wall thickening with subtle urothelial thickening suggests cystitis with upper tract involvement of infection. The focus of gas within the bladder lumen is suspected to relate to catheterization. Correlate with urinalysis. 4. Asymmetric left greater than right perinephric fat infiltration could raise concern for developing pyelonephritis. No other convincing evidence of pyelonephritis at this time. 5. Mild prostatomegaly. Correlate with rectal exam to exclude prostatitis as prostatomegaly may not be expected in a patient of this age. 6. Nonobstructing 7 mm right renal calculus. No hydronephrosis. (1) Nausea and vomiting Vomiting type: unspecified Vomiting Intractability: intractable Qualified Code(s): R11.2 - Nausea with vomiting, unspecified (2) Volume overload Hypervolemia type: unspecified Qualified Code(s): E87.70 - Fluid overload, unspecified (3) Anemia Anemia type: unspecified type Qualified Code(s): D64.9 - Anemia, unspecified (4) Depression Depression Type: other depression Qualified Code(s): F32.89 - Other specified depressive episodes (5) Type I diabetes mellitus Diabetes mellitus complication status: with kidney complications Diabetes mellitus complication detail: with chronic kidney disease Chronic kidney disease stage: stage 4 (severe) Qualified Code(s): E10.22 - Type 1 diabetes mellitus with diabetic chronic kidney disease; N18.4 - Chronic kidney disease, stage 4 (severe) (6) Hypertension Hypertension type: essential hypertension Qualified Code(s): I10 - Essential (primary) hypertension
[2018-10-29] MEDS: HEPARIN SOD 5,000 UNIT/0.5 ML VIAL SQ SCH (22:51)
[2018-10-30] MEDS: INSULIN ASPART 100 UNITS/ML 3 ML PEN SC SCH ×7 (00:40→20:40)
[2018-10-30] MEDS: METOCLOPRAMIDE HCL INJ 5 MG/ML 2 ML VIAL IV SCH ×4 (01:23→18:08)
[2018-10-30] MEDS: ONDANSETRON INJ 2 MG/ML 2 ML VIAL IV PRN (04:21)
[2018-10-30] MEDS: METOPROLOL TARTRATE 1 MG/ML VIAL IV PRN ×2 (04:24→10:14)
[2018-10-30 06:07] LABS: Hematocrit (blood only) 30.4 % (42-52); Mean Corpuscular Hgb Conc 32.9 g/dL (32-36); Mean Corpuscular Volume 90.5 fL (80-100); Mean Platelet Volume 8.9 fL (7.4-10.4); Platelet Count 304 K/uL (130-400); RDW Coefficient of Variation 14.1 % (11.5-14.5); RDW Standard Deviation 46.6 fL (36.4-46.3); Red Blood Count 3.36 M/uL (4.7-6.1); White Blood Count 18.85 K/uL (4.8-10.8)
[2018-10-30 06:38] LABS: BUN Creatinine Ratio 8.6 (10-20); Est GFR (African American) 19.7; Potassium 3.9 mmol/L (3.5-5.1)
[2018-10-30] MEDS: INSULIN GLARGINE SOLOSTAR 100 UNITS/ML 3 ML PEN SC SCH (08:13)
[2018-10-30] MEDS ORDERED: PROCHLORPERAZINE 5 MG in SYRINGE 4 ML IV ONE (08:15)
[2018-10-30] MEDS: HydrALAZINE TAB 50 MG TAB PO SCH ×2 (08:16→20:32)
[2018-10-30] MEDS: AMLODIPINE BESYLATE 5 MG TAB PO SCH (08:17)
[2018-10-30] MEDS: SERTRALINE HCL 100 MG TABLET PO SCH (08:17)
[2018-10-30] MEDS: CARVEDILOL 12.5 MG TAB PO SCH ×2 (08:17→20:32)
--- NOTE | 2018-10-30 10:09 | CT Scan Report ---
CT head/brain wo con CT DOSE: 614.27 mGy.cm HISTORY: intractable nausea/emesis; eval ICH, tumor, etc TECHNIQUE: Multiaxial CT images of the head were performed without the use of intravenous contrast. A dose lowering technique was utilized adhering to the principles of ALARA. Comparison: 07/17/2018 Findings: The paranasal sinuses and mastoid air cells are clear. The calvarium and skull base are int act. The ventricles and sulci are within normal limits. There is no mass, hematoma, midline shift, or acute infarct. Impression: No acute intracranial abnormality. Normal study The above report was generated using voice recognition software. It may contain grammatical, syntax or spelling errors. Electronically signed by: Rick Nguyen M.D. 10/30/2018 10:08 AM
[2018-10-30] MEDS ORDERED: CEFEPIME 500 MG in SYRINGE 0 ML IV SCH (11:00)
[2018-10-30] MEDS ORDERED: VANCOMYCIN CONSULT ACTIVE PRN (11:32)
[2018-10-30] MEDS: HEPARIN SOD 5,000 UNIT/0.5 ML VIAL SQ SCH ×2 (11:40→20:33)
[2018-10-30] MEDS ORDERED: INSULIN PROTOCOL GOAL RANGE ONE (11:44)
[2018-10-30] MEDS ORDERED: VANCOMYCIN HCL 1,250 MG in SODIUM CHLORIDE 0.9% 250 ML IV ONE (12:00)
[2018-10-30] MEDS ORDERED: INSULIN HUMAN REGULAR IV BOLUS 2 UNITS in SYRINGE 0 ML IV ONE (12:00)
[2018-10-30] MEDS ORDERED: INSULIN REGULAR 250 UNITS in SODIUM CHLORIDE 0.9% 247.5 ML IV SCH (12:00)
[2018-10-30] MEDS: FAMOTIDINE 20 MG in SYRINGE 3 ML IV SCH (12:05)
--- NOTE | 2018-10-30 12:21 | Consultation Report ---
DATE OF CONSULTATION: 10/30/2018 GI CONSULT NOTE REASON FOR EVALUATION: Persistent nausea and vomiting. HISTORY OF PRESENT ILLNESS: The patient is a 48-year-old male with end-stage renal disease, hospitalized on October 20 with anemia, acute renal failure on top of chronic renal failure, anasarca, weakness, anorexia, nausea and vomiting. The patient has been followed as an outpatient by the [facility] and had an EGD in May, which he reports was done at the [facility] and was negative. The patient has diabetes with gastroparesis and has been seen in [place] as well. He has been placed on erythromycin as an outpatient which has been only marginally helpful in the last month. The patient has been vomiting about every other day. He has been eating less and has lost weight, but the amount is unknown. He presented to the hospital with worsening renal failure, dehydration, anasarca, malnutrition and was started on renal hemodialysis this past week and has received 3 dialysis, which have made him feel a little bit better, but he still has intractable nausea and vomiting. A CT scan just showed calcification in one of his kidneys and some thickening of the bladder. There is some air in the bladder, but he has had urinary tract catheterizations recently. Ultrasound of the gallbladder was normal. Brain CT was negative. PAST MEDICAL HISTORY: Remarkable for chronic renal failure, anemia, type 1 diabetes, hypertension, depression and anxiety. He has had an appendectomy, history of shoulder surgery and hip surgery. HOME MEDICATIONS: Metoprolol, Humalog, amlodipine, atorvastatin, vitamin D, furosemide, hydralazine, sodium bicarbonate and sertraline. ALLERGIES: SHELLFISH, CODEINE, PROMETHAZINE. FAMILY HISTORY: Remarkable for HI in his grandfather. SOCIAL HISTORY: The patient is legally . He does not smoke, does not drink alcohol. He is employed outside the home. REVIEW OF SYSTEMS: Positive for lethargy and intractable nausea. PHYSICAL EXAMINATION: GENERAL: The patient is lying in bed with his head next to a vomiting bucket. He is awake and conversant. ABDOMEN: Soft. There were no masses or hepatosplenomegaly. No tenderness. RECTAL: Showed a smooth prostate which was not particularly enlarged or tender at all. IMPRESSION: The patient has intractable nausea and vomiting for the past month. He does have several factors that could be contributing to this including his renal failure, diabetes, gastroparesis and possibly an infection. The patient has been tried on multiple medications which so far have been unsuccessful. I think it is probably prudent to check an EGD at some point maybe on Thursday after to make sure that there is no evidence of gastric ulcer or gastric outlet obstruction. Sometimes taking a benzodiazepine in this situation can be helpful with the nausea as well if it has not been tried previously. I will follow the patient during his hospitalization. MTDD
--- NOTE | 2018-10-30 13:51 | Pharmacy Report ---
Pharmacy Glycemic Short Note 2 - Date of Service October 30, 2018 - Glycemic Short BSG Results (Last 24 hours): 10/29/18 10/29/18 10/29/18 16:34 20:17 23:52 Glucose POC Glucose 131 H 145 H 113 H 10/30/18 10/30/18 10/30/18 04:17 05:51 07:19 Glucose 265 H POC Glucose 219 H 305 H* 10/30/18 10/30/18 10/30/18 07:20 10:56 10:59 Glucose POC Glucose 314 H* 445 H* 463 H* 10/30/18 10/30/18 13:16 13:17 Glucose POC Glucose 457 H* 424 H* OUTPATIENT ANTIDIABETIC REGIMEN: * Humalog insulin pump * Basal rates: 0000 0.5units/hr; 0300 0.6units/hr; 0700 1 unit/hr * Correction factor: 35mg/dL/unit * Carb coverage: 1 unit per 10 gm CHO from 0206-8711, then 1 unit per 7gm CHO from 7935-2017 * A1c = 6.5% on 10/21/18 ASSESSMENT: * Pt with new onset pyelonephritis- urine cultures growing staph. May be contributing to hyperglycemia. * Pt was on IV insulin infusion 10/28-10/29 for sustained hyperglycemia. Pt transitioned off of infusion to SQ basal bolus yesterday prior to construction laborer, CT, HD etc. Original plan was to transition off of IV insulin infusion to patient's outpatient insulin pump. However, with new UTI, cardiac cath, and ongoing abdominal pain will transition to SQ basal bolus insulin of insulin pump. Pt is not able to manage his own pump reliably without his parent's help, therefore, will wait to resume pump closer to discharge when pt more stabilized. * BSGs all in goal range yesterday afternoon and evening. It seems that patient has pretty significant edgard phenomenon. * BSG @ 0000 = 113 * BSG @ 0400 = 219 (3 units of NovoLog given) * BSG @ 0700 = 305 (6 units of NovoLog + 14 units of Lantus given) * BSG @ 1100 = 445 (started back on IV insulin infusion) * Discussed hyperglycemia with hospitalist- will restart IV insulin infusion for severe hyperglycemia. Critical to control hyperglycemia d/t infection * May dc IV insulin infusion when the following criteria met: * 1. BSG below 180 mg/dl x 2 checks * 2. IV insulin infusion rate is 1 unit or below * BOTH criteria must be met to stop infusion PLAN FOR INPATIENT GLYCEMIC CONTROL: * Re-start IV insulin infusion * Outpatient basal rate is ~ 0.6-0.9 units/hr depending on the time of day. Will start IV insulin infusion at 2x outpatient dosing (start @ 2 units/hr) and titrate per IV insulin infusion adjustment calculator to maintain BSGs 140-180mg/dl. * Basal insulin * Lantus 14 units SQ Q24hrs - doses given in the morning. Will re-evaluate dosing tomorrow morning * NPH 5 units SQ HS for edgard phenomenon * Bolus insulin * NovoLog per scale ACHS or Q6hrs while NPO * Goal Range: Low 100 mg/dL - High 150 mg/dL * Correction Factor: 30 mg/dL/unit * Nutritional / Prandial insulin per carb ratio of 1 unit per 10 grams CHO consumed PLAN FOR DISCHARGE: * May resume insulin pump on discharge * Needs to be set up with [facility]
--- NOTE | 2018-10-30 14:52 | Pharmacy Report ---
Pharmacy Abx Initial Consult - Date of Service October 30, 2018 - Pharmacy Dosing Scope Date of Consult: 10/30/18 Consultation requested by: Dr. Townsend Pharmacy is consulted to initiate vancomycin IV dosing therapy, order appropriate labs and adjust drug dose/frequency. - Subjective The patient is a 48 year old M admitted on 10/21/18 02:01. - Objective Height: 5 ft 9 in Weight: 58.4 kg Vital Signs (Past 12hrs): Vital Signs Temp Pulse Pulse Resp BP BP Pulse Ox 10/30/18 11:24 175/75 H 10/30/18 10:51 36.7 C 63 15 96 10/30/18 10:14 87 198/84 H 10/30/18 08:09 36.5 C 82 18 196/89 H 94 10/30/18 08:00 80 10/30/18 05:03 180/83 H 10/30/18 04:00 36.7 C 80 16 190/95 H 94 Lab Results (24hrs): Laboratory Tests (24 Hours) 10/30/18 10/30/18 05:51 05:51 WBC 18.85 H Creatinine 3.92 H D Est Cr Clr Drug Dosing 19.0 Micro Results: 10/29/18 15:34 Aerobic Blood Culture - Pending Blood Anaerobic Blood Culture - Pending 10/20/18 23:46 Aerobic Blood Culture - Final Blood No growth in Aerobic bottle after 5 days. Anaerobic Blood Culture - Final No growth in Anaerobic bottle after 5 days. 10/20/18 23:29 Aerobic Blood Culture - Final Blood No growth in Aerobic bottle after 5 days. Anaerobic Blood Culture - Final No growth in Anaerobic bottle after 5 days. - Risk Factors for Resistance * Hospitalization for 48 hours or more within the past 90 days * Current hospitalization > 5 days * Chronic dialysis within the past 30 days - Assessment & Plan Assessment 48 year old M receiving empiric vancomycin for treatment of complicated UTI (pyelonephritis) * Urine culture prelim reveals Staphylococcus species Plan Vancomycin IV * Loading dose: 1250 mg (21 mg/kg) * Random level ordered for morning of 10/31/18 due to residual urine output * Will give supplemental dose tomorrow if needed and then dose as needed with dialysis sessions * Aiming to achieve a vanco trough of at least 10-15 Will follow urine culture and narrow therapy further if possible Pharmacy will continue to follow and will adjust dose/frequency as necessary. Thank you.
[2018-10-30] MEDS: DC IV INSULIN INFUSION 1 EA DEVI SCH ×2 (16:25→17:26)
--- NOTE | 2018-10-30 18:20 | Progress Note ---
DATE: 10/30/2018 NEPHROLOGY PROGRESS NOTE SUBJECTIVE: Overnight, no new issues. He has nausea and vomiting but seems somewhat less today. He was earlier seen by parts counter salesperson. He has had 3 sessions of dialysis so far without any problem. Last session being yesterday. He appears comfortable. Denies any respiratory distress. OBJECTIVE: VITAL SIGNS: Blood pressure 151/80, pulse rate 76, temperature 36.7, 94% on room air. HEENT: Mucous membranes moist. NECK: Supple. CHEST: Bilaterally clear to auscultation. CARDIOVASCULAR: S1, S2 regular. ABDOMEN: Soft, nontender. EXTREMITIES: Show no edema. LABORATORY TESTS: Reviewed in detail. ASSESSMENT AND PLAN: 1. A 48-year-old male with longstanding diabetes, now with end-stage renal disease, requiring chronic maintenance hemodialysis, which he will continue even after the hospital discharge. He is being set up at [facility] unit. 2. Nausea and vomiting, multifactorial as per gastrointestinal. Basically at this time from renal standpoint, we do not have any further advice other than he will continue his chronic maintenance hemodialysis as an outpatient.
[2018-10-30] MEDS ORDERED: INSULIN HUMAN NPH SC SCH (21:00)
--- NOTE | 2018-10-30 21:26 | Hospitalist Progress Note ---
Date of Service October 30, 2018 Assessment & Plan (1) Pyelonephritis: 2nd to staph species. STOP cefepime; change to IV vanco. blood cx's neg to date. CT of abd/pelvis with suggestion of pyelo along with BPH & cystitis. nausea/dry heaves/vomiting - some of this may be due to pyelo. Dr Juárez performed DAVIS today and reported prostate was not tender. (2) Nausea and vomiting: Extensive w/u to date led to no etiology. CT head w/o pathology. RUQ u/s negative for gallstones or other biliary issues. Thus, obtained CT abd/pelvis showing possible pyelonephritis. Findings concerning for prostatitis/cystitis also seen. No hydronephrosis/obstruction. Thus, perhaps urinary infection was contributing to these GI symptoms. He remains on scheduled IV reglan. GI consultation requested today due to refractoriness of his symptoms. May need EGD later in his stay. (3) Neurogenic bladder: This has been observed on prior hospital stays and this stay. He may require intermittent I/O catheterization since he still makes about a liter of urine each day. Due to diabetic neuropathy? Lumbar spine issues? other? Recommend formal urological evaluation after d/c. Consider flomax for prostate. (4) ESRD (end stage renal disease): Patient had progressive worsening of his baseline CKD over the last 12 months. He has been followed by [facility] closely this admission and on previous admissions. He presented with volume overload/anasarca along with mild hyperkalemia earlier this stay. He did indeed diurese well enough to improve his volume status but it was felt he had reached ESRD status. He also underwent thoracentesis yielding 1300cc of transudative fluid. He is now labeled as ESRD. s/p HD sessions x 3 this past week. Will follow m/w/f schedule. Appreciate nephrology assistance. (5) Acute worsening of stage 4 chronic kidney disease: baseline Cr high 3's/low 4's now with development of ESRD and need for HD (6) Volume overload: resolved on the basis of worsening CKD and development of ESRD rather than CHF volume status improved s/p diuresis and 3 prior HD sessions see "ESRD" above (7) Chronic systolic (congestive) heart failure: EF 45-50% on echo this admission. EF was 55-60% on echo in August of this year. There were regional wall motion abnormalities on most recent echo but cath this admission ruled out significant CAD. Cardiology consult appreciated Continue coreg. Needs statin. Cardiology stated we can defer on aspirin for now. (8) Gastroparesis: resumed erythromycin before meals but had prolific emesis/nausea this week despite using the EES. EES now on hold reglan q6h IV being used in its place. (9) Anemia: defer iron therapy, if needed, to nephrology H/H acceptable (10) Depression: continue SSRI numerous stressors last over the last year -- divorce, move from his hometown of [place] to [place], worsening health status, etc consider psych consult - patient agreeable (11) Type I diabetes mellitus: appreciate pharmacy glycemic control consultation & management no DKA on labs uncontrolled - likely due to stress of UTI/pyelo spoke with pharmacy - will restart insulin drip today (12) Hypertension: continue home medications adjust as needed (13) Elevated troponin: likely myocardial demand ischemia in setting of vomiting and ESRD cardiac cath with mild, nonobstructive CAD only (14) Nonobstructive atherosclerosis of coronary artery: as seen on cath. statin, BB. no aspirin for now per Dr Spivey. (15) DVT prophylaxis: heparin SC q12h PT, OT maryanne will get psychiatry involved this weekend Subjective called by nursing staff this am that patient once again was having nausea and dry heaves. this was despite scheduled reglan IV. compazine given x [address] head obtained to r/o FUEL OPERATOR cause of GI sx's - normal. upon my arrival during bedside rounds (afternoon) he was resting comfortably. he said he felt better than earlier in the morning. he was able to eat a little today. BSGs have been quite high. insulin drip renewed. tele stable overnight. Review of Systems Constitutional: no fever, no chills and no fatigue Respiratory: no cough and no dyspnea Cardiovascular: no chest pain Physical Exam Constitutional: + ill appearing and average body habitus; no altered mental status ENMT: external ear and nose normal, oropharynx normal Respiratory: no respiratory distress Auscultation: no rales, no rhonchi and no wheezes Cardiovascular: Rate/Rhythm: regular rate and regular rhythm Heart Sounds: normal S1 and normal S2; no murmur Vessels: posterior tibial pulses present and dorsalis pedis pulses present; no JVD Gastrointestinal (Abdomen): normal bowel sounds, soft, nontender, no hepatosplenomegaly minimal flank tenderness bl Psychiatric: Orientation: alert and oriented x 3 Mood: + depressed mood Results & Data Vital Signs (Past 12 Hours) Vital Signs Temp Pulse Pulse Pulse Resp BP BP 10/30/18 19:02 36.9 C 73 20 136/72 10/30/18 16:00 73 10/30/18 15:23 36.7 C 76 18 10/30/18 11:24 10/30/18 10:51 36.7 C 63 15 10/30/18 10:14 87 198/84 H BP Pulse Ox 10/30/18 19:02 96 10/30/18 16:00 10/30/18 15:23 151/80 H 94 10/30/18 11:24 175/75 H 10/30/18 10:51 96 10/30/18 10:14 Laboratory Results Laboratory Results - last 24 hr 10/29/18 10/30/18 10/30/18 23:52 04:17 05:51 WBC RBC Hgb Hct MCV MCH MCHC RDW Std Deviation RDW Coeff of Kami Plt Count MPV Sodium 135 L Potassium 3.9 Chloride 98 Carbon Dioxide 27 Anion Gap 10.0 BUN 34 H Creatinine 3.92 H D Est Cr Clr Drug Dosing 19.0 Est GFR ( Amer) 19.7 Est GFR (Non-Af Amer) 17.0 BUN/Creatinine Ratio 8.6 L Glucose 265 H POC Glucose 113 H 219 H Calcium 8.0 L 10/30/18 10/30/18 10/30/18 05:51 07:19 07:20 WBC 18.85 H RBC 3.36 L Hgb 10.0 L Hct 30.4 L MCV 90.5 MCH 29.8 MCHC 32.9 RDW Std Deviation 46.6 H RDW Coeff of Kami 14.1 Plt Count 304 MPV 8.9 Sodium Potassium Chloride Carbon Dioxide Anion Gap BUN Creatinine Est Cr Clr Drug Dosing Est GFR ( Amer) Est GFR (Non-Af Amer) BUN/Creatinine Ratio Glucose POC Glucose 305 H* 314 H* Calcium 10/30/18 10/30/18 10/30/18 10:56 10:59 13:16 WBC RBC Hgb Hct MCV MCH MCHC RDW Std Deviation RDW Coeff of Kami Plt Count MPV Sodium Potassium Chloride Carbon Dioxide Anion Gap BUN Creatinine Est Cr Clr Drug Dosing Est GFR ( Amer) Est GFR (Non-Af Amer) BUN/Creatinine Ratio Glucose POC Glucose 445 H* 463 H* 457 H* Calcium 10/30/18 10/30/18 10/30/18 13:17 14:21 15:22 WBC RBC Hgb Hct MCV MCH MCHC RDW Std Deviation RDW Coeff of Kami Plt Count MPV Sodium Potassium Chloride Carbon Dioxide Anion Gap BUN Creatinine Est Cr Clr Drug Dosing Est GFR ( Amer) Est GFR (Non-Af Amer) BUN/Creatinine Ratio Glucose POC Glucose 424 H* 403 H* 366 H* Calcium 10/30/18 10/30/18 10/30/18 16:22 17:25 18:41 WBC RBC Hgb Hct MCV MCH MCHC RDW Std Deviation RDW Coeff of Kami Plt Count MPV Sodium Potassium Chloride Carbon Dioxide Anion Gap BUN Creatinine Est Cr Clr Drug Dosing Est GFR ( Amer) Est GFR (Non-Af Amer) BUN/Creatinine Ratio Glucose POC Glucose 369 H* 267 H 230 H Calcium 10/30/18 10/30/18 19:21 20:22 WBC RBC Hgb Hct MCV MCH MCHC RDW Std Deviation RDW Coeff of Kami Plt Count MPV Sodium Potassium Chloride Carbon Dioxide Anion Gap BUN Creatinine Est Cr Clr Drug Dosing Est GFR ( Amer) Est GFR (Non-Af Amer) BUN/Creatinine Ratio Glucose POC Glucose 219 H 170 H Calcium Diagnostic Findings urine cx - staph species, >100,000 CFU blood cx's negative CT head - normal (1) Type I diabetes mellitus Chronic kidney disease stage: stage 4 (severe) Diabetes mellitus complication detail: with chronic kidney disease Diabetes mellitus complication status: with kidney complications Qualified Code(s): E10.22 - Type 1 diabetes mellitus with diabetic chronic kidney disease; N18.4 - Chronic kidney disease, stage 4 (severe) (2) Anemia Anemia type: unspecified type Qualified Code(s): D64.9 - Anemia, unspecified (3) Depression Depression Type: other depression Qualified Code(s): F32.89 - Other specified depressive episodes (4) Nausea and vomiting Vomiting Intractability: intractable Vomiting type: unspecified Qualified Code(s): R11.2 - Nausea with vomiting, unspecified (5) Hypertension Hypertension type: essential hypertension Qualified Code(s): I10 - Essential (primary) hypertension (6) Volume overload Hypervolemia type: unspecified Qualified Code(s): E87.70 - Fluid overload, unspecified
[2018-10-31] MEDS ORDERED: INSULIN ASPART 100 UNITS/ML 3 ML PEN SC SCH
[2018-10-31] MEDS: METOCLOPRAMIDE HCL INJ 5 MG/ML 2 ML VIAL IV SCH ×5 (00:16→23:20)
[2018-10-31] MEDS: DC IV INSULIN INFUSION 1 EA DEVI SCH ×5 (03:31→09:20)
[2018-10-31 05:58] LABS: Hematocrit (blood only) 28.7 % (42-52); Hemoglobin 9.5 g/dL (14.0-18.0); Mean Corpuscular Hgb Conc 33.1 g/dL (32-36); Mean Platelet Volume 9.1 fL (7.4-10.4); Platelet Count 306 K/uL (130-400); RDW Standard Deviation 45.9 fL (36.4-46.3); Red Blood Count 3.19 M/uL (4.7-6.1); White Blood Count 15.48 K/uL (4.8-10.8)
[2018-10-31 06:45] LABS: BUN Creatinine Ratio 10.1 (10-20); Calcium 7.5 mg/dl (8.5-10.1); Creatinine Clr Calc Pharmacy 14.1 ml/min; Est GFR (African American) 13.2; Est GFR (Non-African American) 11.4
[2018-10-31] MEDS: AMLODIPINE BESYLATE 5 MG TAB PO SCH (08:59)
[2018-10-31] MEDS: FAMOTIDINE 20 MG in SYRINGE 3 ML IV SCH (08:59)
[2018-10-31] MEDS: CARVEDILOL 12.5 MG TAB PO SCH ×2 (08:59→21:36)
[2018-10-31] MEDS: INSULIN GLARGINE SOLOSTAR 100 UNITS/ML 3 ML PEN SC SCH (09:00)
[2018-10-31] MEDS: HEPARIN SOD 5,000 UNIT/0.5 ML VIAL SQ SCH ×2 (09:00→21:36)
[2018-10-31] MEDS: HydrALAZINE TAB 50 MG TAB PO SCH ×2 (09:00→21:36)
[2018-10-31] MEDS: SERTRALINE HCL 100 MG TABLET PO SCH (09:00)
[2018-10-31] MEDS: INSULIN ASPART 100 UNITS/ML 3 ML PEN SC SCH ×4 (09:02→21:39)
--- NOTE | 2018-10-31 09:36 | Pharmacy Report ---
Pharmacy Glycemic Short Note 2 - Date of Service October 31, 2018 - Glycemic Short BSG Results (Last 24 hours): 10/30/18 10/30/18 10/30/18 10:56 10:59 13:16 Glucose POC Glucose 445 H* 463 H* 457 H* 10/30/18 10/30/18 10/30/18 13:17 14:21 15:22 Glucose POC Glucose 424 H* 403 H* 366 H* 10/30/18 10/30/18 10/30/18 16:22 17:25 18:41 Glucose POC Glucose 369 H* 267 H 230 H 10/30/18 10/30/18 10/30/18 19:21 20:22 21:32 Glucose POC Glucose 219 H 170 H 109 H 10/30/18 10/31/18 10/31/18 22:31 00:01 01:04 Glucose POC Glucose 124 H 200 H 168 H 10/31/18 10/31/18 10/31/18 02:10 03:10 05:30 Glucose 132 H POC Glucose 141 H 109 H 10/31/18 07:30 Glucose POC Glucose 206 H OUTPATIENT ANTIDIABETIC REGIMEN: * Humalog insulin pump * Basal rates: 0000 0.5units/hr; 0300 0.6units/hr; 0700 1 unit/hr * Correction factor: 35mg/dL/unit * Carb coverage: 1 unit per 10 gm CHO from 6906-2592, then 1 unit per 7gm CHO from 0563-0798 * A1c = 6.5% on 10/21/18 ASSESSMENT: * IV insulin infusion restarted yesterday for sustained, severe hyperglycemia secondary to infection (UTI/pyelo w/staph sp- IV abx changed to vanco) * Pt was on IV insulin infusion 10/28-10/29 for sustained hyperglycemia. 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 Original plan was to transition off of IV insulin infusion to patient's outpatient insulin pump. However, with new UTI, cardiac cath, and ongoing abdominal pain will transition to SQ basal bolus insulin of insulin pump. Pt is not able to manage his own pump reliably without his parent's help, therefore, will wait to resume pump closer to discharge when pt more stabilized. * IV insulin infusion d/c'ed this morning ~0300 when the following criteria met: * 1. BSG below 180 mg/dl x 2 checks * 2. IV insulin infusion rate is 1 unit or below * BOTH criteria must be met to stop infusion * It seems that patient has pretty significant edgard phenomenon, typical HS --> AM bsgs below. * BSG @ 1700 = ~120's * BSG @ 0000 = ~140's * BSG @ 0400 = 200-250's * BSG @ 0700 = 250-300's * Started NPH 5 units at bedtime 10/30/18 to combat edgard phenomenon. Will continue to titrate based on BSG trends. PLAN FOR INPATIENT GLYCEMIC CONTROL: Continue with SQ basal bolus insulin regimen. Will try to transition to insulin pump prior to dc * Stop IV insulin infusion - done @ 0300 when criteria met * Basal insulin * Lantus 14 units SQ Q24hrs - doses given in the morning. * Pt required IV insulin infusion + 1 unit of correction in addition to NPH 5 units SQ HS for edgard phenomenon. Will increase NPH to 6 units this evening. * Bolus insulin * NovoLog per scale ACHS or Q6hrs while NPO * Goal Range: Low 100 mg/dL - High 150 mg/dL * Correction Factor: 30 mg/dL/unit * Nutritional / Prandial insulin per carb ratio of 1 unit per 9 grams CHO consumed PLAN FOR DISCHARGE: * May resume insulin pump the day prior to discharge. Goal is to start getting stabilized on pump to facilitate automode dosing * Needs to be set up with [facility]
[2018-10-31] MEDS ORDERED: VANCOMYCIN HCL 1,000 MG in SODIUM CHLORIDE 0.9% 250 ML IV SCH (10:00)
--- NOTE | 2018-10-31 10:03 | Progress Note ---
DATE: 10/31/2018 SUBJECTIVE: The patient reports no nausea or vomiting today and he has eaten a diabetic diet for breakfast. He is now being treated for a presumed pyelonephritis based on a CT scan which seems to be making the difference in his symptoms. His prostate exam yesterday was unremarkable without any enlargement, nodularity or tenderness. OBJECTIVE: VITAL SIGNS: Normal. He is afebrile. ABDOMEN: Soft and nontender. IMPRESSION: The patient's nausea and vomiting are improving with treatment of a presumed pyelonephritis. We will continue this treatment and as long as he continues to remain asymptomatic, then we may not need to do an EGD this coming week. We will continue to follow the patient.
[2018-10-31] MEDS ORDERED: VANCOMYCIN HCL 750 MG in SODIUM CHLORIDE 0.9% 250 ML IV SCH (10:30)
[2018-10-31] MEDS ORDERED: INSULIN ASPART 100 UNITS/ML 3 ML PEN SC ONE (12:00)
--- NOTE | 2018-10-31 12:25 | Pharmacy Report ---
Pharmacy Abx Dose Short Note - Date of Service October 31, 2018 - Assessment & Plan Assessment 48 year old M receiving empiric vancomycin for treatment of complicated UTI (pyelonephritis) * Urine culture prelim reveals Staphylococcus species Plan Vancomycin * Random level of 16 mcg/mL this morning * Will give follow-up one-time dose of 750 mg IV today based on residual urine output (200-300 mLs/shift per nursing) * Aiming to achieve a vanco serum level of at least 10-15 * Random level to be obtained prior to hemodialysis (MWF schedule) Pharmacy will continue to follow and will adjust dose/frequency as necessary. Thank you.
[2018-10-31] MEDS: ONDANSETRON INJ 2 MG/ML 2 ML VIAL IV PRN ×2 (13:40→20:31)
[2018-10-31] MEDS ORDERED: LORazepam 1 MG TAB SL STA (14:16)
[2018-10-31] MEDS ORDERED: INSULIN HUMAN REGULAR IV BOLUS 3 UNITS in SYRINGE 0 ML IV ONE (15:30)
[2018-10-31] MEDS ORDERED: INSULIN REGULAR 250 UNITS in SODIUM CHLORIDE 0.9% 247.5 ML IV SCH (15:30)
--- NOTE | 2018-10-31 19:09 | Hospitalist Progress Note ---
Date of Service October 31, 2018 Assessment & Plan (1) Pyelonephritis: 2nd to staph species. Day #2 IV vanco. WBC count improving and appetite improving. Still no final culture result - seems to be taking a long time to return. Concern that this could be VRE and he would need daptomycin? blood cx's neg to date. CT of abd/pelvis with suggestion of pyelo along with BPH & cystitis. nausea/dry heaves/vomiting - some of this may be due to pyelo. (2) Nausea and vomiting: Extensive w/u to date led to no etiology. CT head w/o pathology. RUQ u/s negative for gallstones or other biliary issues. Thus, obtained CT abd/pelvis showing possible pyelonephritis. Findings concerning for prostatitis/cystitis also seen. No hydronephrosis/obstruction. Thus, perhaps urinary infection was contributing to these GI symptoms. He remains on scheduled IV reglan. Even with this he is still having nausea. GI consulted - May need EGD later in his stay. After my visit today I gave ativan 0.5mg SL x 1 for anxiety/nausea. (3) Neurogenic bladder: This has been observed on prior hospital stays and this stay. He may require intermittent I/O catheterization since he still makes about a liter of urine each day. Due to diabetic neuropathy? Lumbar spine issues? other? Recommend formal urological evaluation after d/c. Consider flomax for prostate. (4) ESRD (end stage renal disease): Patient had progressive worsening of his baseline CKD over the last 12 months. He has been followed by [facility] closely this admission and on previous admissions. He presented with volume overload/anasarca along with mild hyperkalemia earlier this stay. He did indeed diurese well enough to improve his volume status but it was felt he had reached ESRD status. He also underwent thoracentesis yielding 1300cc of transudative fluid. He is now labeled as ESRD. s/p HD sessions x 3 this past week. Will follow m/w/ schedule. Appreciate nephrology assistance. Volume status acceptable today. (5) Acute worsening of stage 4 chronic kidney disease: baseline Cr high 3's/low 4's now with development of ESRD and need for HD (6) Volume overload: resolved on the basis of worsening CKD and development of ESRD rather than CHF volume status improved s/p diuresis and 3 prior HD sessions see "ESRD" above (7) Chronic systolic (congestive) heart failure: EF 45-50% on echo this admission. EF was 55-60% on echo in August of this year. There were regional wall motion abnormalities on most recent echo but cath this admission ruled out significant CAD. Cardiology consult appreciated Continue coreg. Start lipitor 20mg daily. Cardiology stated we can defer on aspirin for now. (8) Gastroparesis: resumed erythromycin before meals but had prolific emesis/nausea this week despite using the EES. EES now on hold. reglan q6h IV being used in its place. (9) Anemia: defer iron therapy, if needed, to nephrology H/H acceptable (10) Depression: continue SSRI numerous stressors last over the last year -- divorce, move from [place] to [place], worsening health status, etc I consulted psychiatry formally. (11) Type I diabetes mellitus: appreciate pharmacy glycemic control consultation & management no DKA on labs uncontrolled with persistent BSGs in the 500+ range. consider going back to insulin infusion. (12) Hypertension: continue home medications adjust as needed (13) Elevated troponin: likely myocardial demand ischemia in setting of vomiting and ESRD cardiac cath with mild, nonobstructive CAD only (14) Nonobstructive atherosclerosis of coronary artery: as seen on cath. statin, BB. no aspirin for now per Dr Spivey. (15) DVT prophylaxis: heparin SC q12h PT, OT psych consult HD tomorrow Subjective during the visit today the pt's mother was at bedside. he stated he ate decently today and felt better than yesterday. has had some mild intermittent nausea throughout the day. we were talking about his depression when suddenly he turned, grabbed the emesis basin, and started dry heaving again. his mother reported that he was anxious because his teenage daughters were going to visit today. denies any dyspnea, orthopnea, abd pain. is voiding spontaneously without need for I/O catheterization. Review of Systems Constitutional: no fever and no chills Respiratory: no dyspnea and no dyspnea on exertion Cardiovascular: no chest pain, no orthopnea and no paroxysmal nocturnal dyspnea Gastrointestinal: + nausea and + vomiting; no abdominal pain Physical Exam Constitutional: + ill appearing and average body habitus; no altered mental status ENMT: external ear and nose normal, oropharynx normal Respiratory: no respiratory distress Auscultation: no rales, no rhonchi and no wheezes Cardiovascular: Rate/Rhythm: regular rate and regular rhythm Heart Sounds: normal S1 and normal S2; no murmur Vessels: posterior tibial pulses present and dorsalis pedis pulses present; no JVD Gastrointestinal (Abdomen): normal bowel sounds, soft, nontender, no hepatosplenomegaly Psychiatric: Orientation: alert and oriented x 3 Affect: + flat affect Mood: + depressed mood Results & Data Vital Signs (Past 12 Hours) Vital Signs Temp Pulse Pulse Resp BP BP Pulse Ox 10/31/18 15:30 81 18 170/88 H 97 10/31/18 11:27 36.5 C 74 15 131/69 93 10/31/18 07:01 36.7 C 77 16 123/86 94 Laboratory Results Laboratory Results - last 24 hr 10/30/18 10/30/18 10/30/18 19:21 20:22 21:32 WBC RBC Hgb Hct MCV MCH MCHC RDW Std Deviation RDW Coeff of Kami Plt Count MPV Sodium Potassium Chloride Carbon Dioxide Anion Gap BUN Creatinine Est Cr Clr Drug Dosing Est GFR ( Amer) Est GFR (Non-Af Amer) BUN/Creatinine Ratio Glucose POC Glucose 219 H 170 H 109 H Calcium Random Vancomycin 10/30/18 10/31/18 10/31/18 22:31 00:01 01:04 WBC RBC Hgb Hct MCV MCH MCHC RDW Std Deviation RDW Coeff of Kami Plt Count MPV Sodium Potassium Chloride Carbon Dioxide Anion Gap BUN Creatinine Est Cr Clr Drug Dosing Est GFR ( Amer) Est GFR (Non-Af Amer) BUN/Creatinine Ratio Glucose POC Glucose 124 H 200 H 168 H Calcium Random Vancomycin 10/31/18 10/31/18 10/31/18 02:10 03:10 05:30 WBC RBC Hgb Hct MCV MCH MCHC RDW Std Deviation RDW Coeff of Kami Plt Count MPV Sodium Potassium Chloride Carbon Dioxide Anion Gap BUN Creatinine Est Cr Clr Drug Dosing Est GFR ( Amer) Est GFR (Non-Af Amer) BUN/Creatinine Ratio Glucose POC Glucose 141 H 109 H Calcium Random Vancomycin 16.0 10/31/18 10/31/18 10/31/18 05:30 05:30 07:30 WBC 15.48 H RBC 3.19 L Hgb 9.5 L Hct 28.7 L MCV 90.0 MCH 29.8 MCHC 33.1 RDW Std Deviation 45.9 RDW Coeff of Kami 14.0 Plt Count 306 MPV 9.1 Sodium 134 L Potassium 4.0 Chloride 98 Carbon Dioxide 27 Anion Gap 9.0 BUN 55 H D Creatinine 5.45 H* D Est Cr Clr Drug Dosing 14.1 Est GFR ( Amer) 13.2 Est GFR (Non-Af Amer) 11.4 BUN/Creatinine Ratio 10.1 Glucose 132 H POC Glucose 206 H Calcium 7.5 L Random Vancomycin 10/31/18 10/31/18 10/31/18 11:32 11:34 15:02 WBC RBC Hgb Hct MCV MCH MCHC RDW Std Deviation RDW Coeff of Kami Plt Count MPV Sodium Potassium Chloride Carbon Dioxide Anion Gap BUN Creatinine Est Cr Clr Drug Dosing Est GFR ( Amer) Est GFR (Non-Af Amer) BUN/Creatinine Ratio Glucose POC Glucose 522 H* 555 H* 543 H* Calcium Random Vancomycin 10/31/18 10/31/18 10/31/18 15:04 16:57 18:01 WBC RBC Hgb Hct MCV MCH MCHC RDW Std Deviation RDW Coeff of Kami Plt Count MPV Sodium Potassium Chloride Carbon Dioxide Anion Gap BUN Creatinine Est Cr Clr Drug Dosing Est GFR ( Amer) Est GFR (Non-Af Amer) BUN/Creatinine Ratio Glucose POC Glucose 531 H* 465 H* 402 H* Calcium Random Vancomycin (1) Type I diabetes mellitus Chronic kidney disease stage: stage 4 (severe) Diabetes mellitus complication detail: with chronic kidney disease Diabetes mellitus complication status: with kidney complications Qualified Code(s): E10.22 - Type 1 diabetes mellitus with diabetic chronic kidney disease; N18.4 - Chronic kidney disease, stage 4 (severe) (2) Anemia Anemia type: unspecified type Qualified Code(s): D64.9 - Anemia, unspecified (3) Depression Depression Type: other depression Qualified Code(s): F32.89 - Other specified depressive episodes (4) Nausea and vomiting Vomiting Intractability: intractable Vomiting type: unspecified Qualified Code(s): R11.2 - Nausea with vomiting, unspecified (5) Hypertension Hypertension type: essential hypertension Qualified Code(s): I10 - Essential (primary) hypertension (6) Volume overload Hypervolemia type: unspecified Qualified Code(s): E87.70 - Fluid overload, unspecified
[2018-10-31] MEDS ORDERED: INSULIN HUMAN NPH SC SCH (21:00)
[2018-11-01] MEDS ORDERED: INSULIN ASPART 100 UNITS/ML 3 ML PEN SC SCH
[2018-11-01] MEDS ORDERED: INSULIN HUMAN REGULAR SC SCH
[2018-11-01] MEDS: CARBOHYDRATES FOR HYPOGLYCEMIA PO PRN ×2 (01:00→02:00)
[2018-11-01] MEDS: DC IV INSULIN INFUSION 1 EA DEVI SCH ×2 (01:00→07:49)
[2018-11-01] MEDS: METOCLOPRAMIDE HCL INJ 5 MG/ML 2 ML VIAL IV SCH ×4 (05:43→23:04)
[2018-11-01] MEDS: INSULIN HUMAN REGULAR SC SCH ×5 (07:56→23:12)
[2018-11-01] MEDS: HydrALAZINE TAB 50 MG TAB PO SCH ×2 (07:58→21:02)
[2018-11-01] MEDS: AMLODIPINE BESYLATE 5 MG TAB PO SCH (07:59)
[2018-11-01] MEDS: CARVEDILOL 12.5 MG TAB PO SCH ×2 (07:59→21:55)
[2018-11-01] MEDS: SERTRALINE HCL 100 MG TABLET PO SCH (07:59)
[2018-11-01] MEDS: ATORVASTATIN 20 MG TAB PO SCH (07:59)
[2018-11-01] MEDS: FAMOTIDINE 20 MG TAB PO SCH (07:59)
[2018-11-01] MEDS: HEPARIN SOD 5,000 UNIT/0.5 ML VIAL SQ SCH ×2 (08:02→21:03)
[2018-11-01] MEDS ORDERED: INSULIN GLARGINE SOLOSTAR 100 UNITS/ML 3 ML PEN SC SCH (09:00)
--- NOTE | 2018-11-01 09:21 | Pharmacy Report ---
Pharmacy Abx Dose Short Note - Date of Service November 01, 2018 - Assessment & Plan Microbiology 10/29/18 11:00 Urine,Straight Cath Urine Culture - Final Coag negative Staphylococcus 10/29/18 15:34 Blood Aerobic Blood Culture - Preliminary 10/29/18 15:34 Blood Anaerobic Blood Culture - Preliminary No growth in Aerobic bottle after 48 hours. No growth in Anaerobic bottle after 48 hours. 10/29/18 12:45 Blood Aerobic Blood Culture - Preliminary 10/29/18 12:45 Blood Anaerobic Blood Culture - Preliminary No growth in Aerobic bottle after 48 hours. No growth in Anaerobic bottle after 48 hours. Laboratory Tests 11/01/18 05:20 Random Vancomycin 23.0 Assessment 48 year old M receiving empiric vancomycin for treatment of complicated UTI (pyelonephritis) * Urine culture reveals Coag Neg Staph * Blood cultures still pending, Dr Townsend has concern for VRE? would need IV Daptomycin if VRE Plan Vancomycin * Random level of 23 mcg/mL this morning * Will give one-time dose of 500 mg IV today AFTER HD for pre-HD random level in 20-25mcg/ml range. * Due to some urine output (400 mLs/ this morning shift), will order random level with AM labs * Aiming to achieve a vanco serum level of at least 10-15 * Random level tomorrow morning with AM Labs * HD MWF Pharmacy will continue to follow and will adjust dose/frequency as necessary. Thank you.
--- NOTE | 2018-11-01 09:35 | Pharmacy Report ---
Pharmacy Glycemic Short Note 2 - Date of Service November 01, 2018 - Glycemic Short BSG Results (Last 24 hours): 10/31/18 10/31/18 10/31/18 11:32 11:34 15:02 POC Glucose 522 H* 555 H* 543 H* 10/31/18 10/31/18 10/31/18 15:04 16:57 18:01 POC Glucose 531 H* 465 H* 402 H* 10/31/18 10/31/18 10/31/18 19:04 20:08 21:04 POC Glucose 340 H* 239 H 162 H 10/31/18 10/31/18 11/01/18 22:03 23:02 00:00 POC Glucose 137 H 123 H 89 11/01/18 11/01/18 11/01/18 00:26 00:57 01:14 POC Glucose 89 69 L* 71 11/01/18 11/01/18 11/01/18 01:34 01:59 02:19 POC Glucose 71 65 L* 72 11/01/18 11/01/18 04:07 06:01 POC Glucose 74 104 H OUTPATIENT ANTIDIABETIC REGIMEN: * Humalog insulin pump * Basal rates: 0000 0.5units/hr; 0300 0.6units/hr; 0700 1 unit/hr * Correction factor: 35mg/dL/unit * Carb coverage: 1 unit per 10 gm CHO from 6799-7694, then 1 unit per 7gm CHO from 9898-8627 * A1c = 6.5% on 10/21/18 ASSESSMENT: 11/01 * Mr. De Los Santos was titrated off his insulin drip again overnight. BSGs dropped to below goal ~midnight and insulin drip was placed on hold. Patient was treated with CHO per protocol and BSGs subsequently increased but were only 104 mg/dL this AM after having the drip off since midnight. * Quite a few changes were made with his insulin regimen yesterday (increased Lantus and NPH doses; Novolog was changed to Regular) so I hesitated to make any changes this AM until I had a better feel for where BSGs were going. BSG when patient returned from dialysis is only 90 mg/dL. I will loosen CR slightly. My initial plan was to reduce NPH dose since he already received 18 units of basal this AM; however, will hold this altogether in light of updated changes -> Dr. Rey plans to discharge either later today or tomorrow (most likely tomorrow). Patient has just returned from dialysis and nursing reports he's pretty exhausted so he had no po intake for lunch. Since he had lows overnight last night, received a higher dose of Lantus this AM and has an impending discharge, I have elected to hold the NPH altogether. 10/31 * IV insulin infusion restarted yesterday for sustained, severe hyperglycemia secondary to infection (UTI/pyelo w/staph sp- IV abx changed to vanco) * Pt was on IV insulin infusion 10/28-10/29 for sustained hyperglycemia. Pt transitioned off of infusion to SQ basal bolus yesterday prior to lab support tech, CT, HD etc. Original plan was to transition off of IV insulin infusion to patient's outpatient insulin pump. However, with new UTI, cardiac cath, and ongoing abdominal pain will transition to SQ basal bolus insulin of insulin pump. Pt is not able to manage his own pump reliably without his parent's help, therefore, will wait to resume pump closer to discharge when pt more stabilized. * IV insulin infusion d/c'ed this morning ~0300 when the following criteria met: * 1. BSG below 180 mg/dl x 2 checks * 2. IV insulin infusion rate is 1 unit or below * BOTH criteria must be met to stop infusion * It seems that patient has pretty significant edgard phenomenon, typical HS --> AM bsgs below. * BSG @ 1700 = ~120's * BSG @ 0000 = ~140's * BSG @ 0400 = 200-250's * BSG @ 0700 = 250-300's * Started NPH 5 units at bedtime 10/30/18 to combat edgard phenomenon. Will continue to titrate based on BSG trends. PLAN FOR INPATIENT GLYCEMIC CONTROL: Continue with SQ basal bolus insulin regimen. Will try to transition to insulin pump prior to dc * Discontinue IV insulin infusion - has been on hold since midnight * Basal insulin - d/c NPH * Lantus 18 units SQ qAM - tomorrow's dose placed on hold in preparation for discharge * HOLD NPH dose for reasons noted above * Bolus insulin - loosen CR * NovoLog per scale ACHS or Q6hrs while NPO * Goal Range: Low 100 mg/dL - High 150 mg/dL * Correction Factor: 30 mg/dL/unit * Nutritional / Prandial insulin per carb ratio of 1 unit per 10 grams CHO consumed PLAN FOR DISCHARGE: * Plan was to resume the insulin pump prior to discharge to facilitate automode dosing; however, patient already received his Lantus dose this AM and BSGs have been on the lower side all day today (drastic change from yesterday). I'm hesitant to have him resume his pump until BSGs are on the upper end/above goal range. * At this point, will wait until the AM to resume his pump (he has his supplies with him in the hospital). * Needs to be set up with [facility] for f/u as well
[2018-11-01] MEDS: METOPROLOL TARTRATE 1 MG/ML VIAL IV PRN (13:11)
--- NOTE | 2018-11-01 14:21 | Progress Note ---
DATE: 11/01/2018 NEPHROLOGY PROGRESS NOTE SUBJECTIVE: Overnight, no new issues. He just came back from dialysis and had it without any problem. It appears he does not have any nausea or vomiting and he is eating his lunch without any problem. PHYSICAL EXAMINATION: VITAL SIGNS: Blood pressure 165/82, pulse rate 74, temperature 37, 94% on room air. HEENT: Mucous membranes moist. NECK: Supple. No jugular venous distention. CHEST: Bilateral clear to auscultation. CARDIOVASCULAR: S1, S2 regular. ABDOMEN: Soft and nontender. EXTREMITIES: Shows no edema. LABORATORY TESTS: From this morning, not available. ASSESSMENT AND PLAN: 1. A 48-year-old male with longstanding complicated diabetes, now with progression to end-stage renal disease and requiring dialysis. He will continue dialysis as an outpatient at the [facility] unit. Arrangements have already been made. 2. Nausea, vomiting. He does not complain of any nausea, vomiting at this time, so it is quite possible that this was caused by the combination of end-stage renal disease/uremia as well as gastroparesis. He is eating his meal without any problem. Defer to GI and primary service.
--- NOTE | 2018-11-01 14:32 | Hospitalist Progress Note ---
Date of Service November 01, 2018 Assessment & Plan (1) Pyelonephritis: Urine cx from 10/29 grew coag(-) Staph species. Blood cx's neg to date. CT of abd/pelvis with suggestion of pyelo along with BPH & cystitis. - Vanc started on 10/30 (2) Nausea and vomiting: Extensive w/u to date led to no etiology. CT head w/o pathology. RUQ u/s negative for gallstones or other biliary issues. Thus, obtained CT abd/pelvis showing possible pyelonephritis. - GI consulted - May need EGD later in his stay. (3) Neurogenic bladder: This has been observed on prior hospital stays and this stay. Due to diabetic neuropathy? - Recommend formal urological evaluation after d/c. - Consider flomax for prostate. (4) ESRD (end stage renal disease): Patient had progressive worsening of his baseline CKD over the last 12 months. He has been followed by [facility] closely this admission and on previous admissions. He presented with volume overload/anasarca along with mild hyperkalemia earlier this stay. He did indeed diurese well enough to improve his volume status but it was felt he had reached ESRD status. He also underwent thoracentesis yielding 1300cc of transudative fluid. - S/p HD sessions x 3 this past week. - Will follow m/w/f schedule. - Appreciate nephrology assistance - Will follow up with [facility] on discharge on Thursday. (5) Chronic systolic (congestive) heart failure: EF 45-50% on echo this admission. EF was 55-60% on echo in August of this year. - There were regional wall motion abnormalities on most recent echo but cath this admission ruled out significant CAD. - Cardiology consult appreciated - Continue coreg. - Start lipitor 20mg daily. - Cardiology stated we can defer on aspirin for now. (6) Gastroparesis: Resumed erythromycin before meals but had prolific emesis/nausea this week despite using the EES. EES now on hold. - Reglan q6h IV being used in its place. (7) Depression: Numerous stressors last over the last year -- divorce, move from his hometown of [place] to [place], worsening health status, etc - Continue SSRI (8) Type I diabetes mellitus: No DKA on labs. - Has been off/on insulin gtt for uncontrolled with persistent BSGs in the 500+ range. - Appreciate pharmacy glycemic control consultation & management (9) Hypertension: BP high/normal inpatient presently. - Continue home medications - Adjust as needed (10) Nonobstructive atherosclerosis of coronary artery: Had troponin elevated to 0.2 on admission in setting of hypervolemia. Cardiac cath on 10/[address] Spivey showed only mild, non-obstructive CAD. Likely myocardial demand ischemia in setting of vomiting and ESRD. - No need for ASA per cardiology - Continue beta-deidre & statin (11) DVT prophylaxis: Heparin SC q12h Subjective No major concerns at present. He lives with his parents. Review of Systems Review of Systems: All systems reviewed & are unremarkable except as noted in HPI & below Physical Exam Constitutional: WD/WN, vitals as above Eyes: EOM intact bilaterally; no conjunctival abnormality ENMT: external ear and nose normal, oropharynx normal Neck: trachea midline, no thyromegaly normal visual inspection Respiratory: normal respiratory effort, lungs clear to auscultation no respiratory distress Cardiovascular: RRR, no murmur, no edema Gastrointestinal (Abdomen): Inspection/Auscultation: abdomen normal to inspection; abdomen not distended Musculoskeletal: no cyanosis or clubbing, extremities motor strength 5/5 Skin: no rashes, warm and dry Neurologic: moves all extremities and awake Psychiatric: Orientation: alert, oriented to person and cooperative Results & Data Vital Signs (Past 12 Hours) Vital Signs Temp Pulse Pulse Resp BP BP Pulse Ox 11/01/18 13:11 74 165/82 H 11/01/18 13:09 37.3 C 74 18 165/82 H 94 11/01/18 12:57 37.2 C 76 181/93 H 11/01/18 12:00 76 194/96 H 11/01/18 11:40 80 184/96 H 11/01/18 11:20 82 185/98 H 11/01/18 11:00 75 161/95 H 11/01/18 10:40 77 162/88 H 11/01/18 10:20 76 162/88 H 11/01/18 10:00 81 185/100 H 11/01/18 09:40 82 175/96 H 11/01/18 09:28 75 162/76 H 11/01/18 09:20 37.1 C 76 11/01/18 06:57 36.7 C 73 18 160/83 H 96 11/01/18 04:08 36.8 C 74 17 159/85 H 96 (1) Nausea and vomiting Vomiting type: unspecified Vomiting Intractability: intractable Qualified Code(s): R11.2 - Nausea with vomiting, unspecified (2) Depression Depression Type: other depression Qualified Code(s): F32.89 - Other specified depressive episodes (3) Type I diabetes mellitus Diabetes mellitus complication status: with kidney complications Diabetes mellitus complication detail: with chronic kidney disease Chronic kidney disease stage: stage 4 (severe) Qualified Code(s): E10.22 - Type 1 diabetes mellitus with diabetic chronic kidney disease; N18.4 - Chronic kidney disease, stage 4 (severe) (4) Hypertension Hypertension type: essential hypertension Qualified Code(s): I10 - Essential (primary) hypertension
--- NOTE | 2018-11-01 15:44 | Psychiatric Consultation ---
Date of Consultation November 01, 2018 Impression / Recommendations Impression The patient is a 48yo WM pending divorce who has a multitude of medical concerns at this time to include current infection, and blood sugars > 300 at this time on top of recent start of dialysis. He had intractable nausea and vomitting, and at least until this week it was relenteless likely mediated by gastroparesis, as well as his ESRD, and worsened by his anxiety. He has ongoing vomitting yesterday with anxiety and states he is a longstanding worrier, and he continues to feel depressed over the last 6+ months as well. He is taking and as best we can tell tolerating the sertraline 100mg with partial response He has established a relationship with a local therapist and is doing some of the exercises she has asked him to do. These are good prognostic signs. Plan: 1. Safety - patient is no considered imminent danger to self or others at this time. Outpatient care is least restrictive and most appropriate seeting for psychiatric care once medically cleared. 2. Depression and Anxiety - agree with primary teams treatment of ESRD with dialysis, I agree with Dr Ortiz that this seems to be helpful not olnly for patient's n/v but also for his general wellbeing - agree with primary team's treatment of elevated blood sugars as cognition and mood and anxiety can be radically worsened by blood sugars > 300 - agree with ongoing therapy wt Ms Walls, encouraged patient to continue to practice behavioral actions she has taught him and to ask for CBT worksheet type homework to do in between sessions given he is highly motivated - agree with sertraline will increase to 150mg and if not full effective at 4 weeks PCM can increase to 200mg, watching bowel loosening and sweating. Note to PCM: -- If ongoing anxiety after that would consider adding buspar, -- if ongoing derpression would consider cautious augmentation with trintellex (e.g. 5-10mg) if accessible (watching for nausea) , OR cautious trial of wellbutrin SR 100mg/AM alongside sertraline watching the latter for anxiety, activation. - encouraged patient to fight all or nothing thinking and to get out to golf course with kids even if he only drives the cart and they do less number of holes prior to needing a rest to keep him active and engaged in prior activities of enjoyment - agree with support from parents and attending aroldo community where he can hopefully make friends Will as [facility] nurse to request GONZALES for this note to be sent to patient's therapist and PCM. Thank you for this consult, please call with quesitons or concerns (1) Depression: Risk Factors Assessment Male: Yes : Yes Do You Have Access To A Gun?: No Health Problems: Yes Mental Health Diagnoses: Yes Substance Use Disorders: No Previous Attempt: No Family History of Suicide: No Hopelessness: Yes Smoker: No Protective Factors Assessment Christian Beliefs: Yes : No Responsible for Young Children: Yes Employed: No Stable Relationships: Yes Supportive Family: Yes Good Rapport with Provider: Yes CPT Code 26284 Psych History Chief Complaint "I am down and anxious". History of Present Illness The patient is a 48-year-old male with a past medical history including acute kidney injury on chronic kidney disease stage IV recently placed on M/W/F dialysis, depression, gastroparesis, intractable vomiting, acid reflux, GERD, CHF, anemia who presented to the emergency department due to insistence of his father, due to above symptoms, and found to be in significant overall body edema, with worsening creatinine, worsening anemia, increasing blood sugar, and worsening liver enzymes. He has been continued on dialysis, and in treatment for pyelonephritis and persists in having very high blood sugars. Psychiatry was consulted to address ongoing depression as well anxiety. Review of the record reveals that Mr De Los Santos is well known to psychiatry having been seen by Dr yeung 07/10/18, 08/07/18 and Clarisa GARRIDO 09/13/18. The patient was seen by our behavioral health liaison nurse and this provider. The patient notes he feels he is depressed at this time, "I usually am in good spirits and I have lost my sense of humor" He notes he has not felt like himself for 6-8months. He reports poor sleep is okay at this time, he has low energy, low interest, feels weak. He has limited desire to do things he enjoys and limited opportunity as he enjoys golfing (mini-golf and regular golf) and visiting his kids whom he now gets to see qoweek due to separation from for 3 years and now pending divorce (she filed 06/2018). He states he feels h/h/w and lonely. He denies si, intention or plan. He denies s/sx of bipolar disorder, or thought disordered symptoms. He notes he has always been an anxious person feeling that he does not like new things, and dislikes large crowds. He denies h/o panic attacks, but about 5- 6months ago around the holidays he started to have anxiety with subsequent vomitting in that order. He states he feels nervous and worries. He denies agoraphobia or social anxiety, OCD, or h/o trauma or s/sx of PTSD. He was previously on remeron from PCM and valium from GI MD and recommended to taper valium at iniital 07/10/18 consult, then at his 08/07/18 consult remeron was stopped and sertraline started, he was on 50mg for about 4 weeks when seen by Clarisa AGUILAR 09/13/18 it was increased to 100mg. He denies CHANEL, GI upset that he can tell given his comorbid issues, but does have slightly softer stool but not diarrhea. He feels his energy is no worse on this medication. He feels it has been "somewhat helpful....I have been in some situations that I would have f elt anxious in before and don't know" but he does continue to have anxiety and as recently as yesterday vomitting with anxiety. He is also seeing Stephanie Walls 3 times at [facility] in the last 6-8 weeks and states he is practicing his breathing techniques 1-3 times a day and his muscle relaxation 1 time a day. He feels this is a good fit but he notes his hospitalizations have at times gotten in the way of f/u appt. He notes he is living with his parents and feels that is a good thing as they are supportive, he is attending alevism which is new for him but feels very welcome there. He has limited other supports at this time. Past Psych history Dr King [facility] prescribes his medication ([place]) sees about once a month; h/o Jose C Dawn but now seeing Stephanie Walls at [facility] for therapy Past medications: lexapro about 8 years ago, not effective; h/o remeron (poosibly too sedation), valium for gastropareiss, zoloft 100mg as of 09/13/18 partial response Denies past SA, or SIB< denies psychiatric admission; no access to weapons Substances: denies tobacco, alcohol or drugs Family psych history: negative for mental health, addiction or suicide, GF with CAD and [place] Social HIstory: Past Psychiatric History Do You Have Access To A Gun?: No Allergies Allergy/AdvReac Type Severity Reaction Status Date / Time shellfish derived Allergy Severe anaphylaxis Verified 10/21/18 00:26 codeine Allergy Intermediate Hives Verified 10/21/18 00:26 promethazine Allergy Intermediate itchy/hives Verified 10/21/18 00:26 Home Medications Home Medications Medication Instructions Recorded Confirmed Type metoprolol tartrate 25 mg PO BID #60 tab 08/13/18 10/21/18 Rx Humalog U-100 Insulin 1 sliding scale dose SUBCUT CONT 09/10/18 10/21/18 History amlodipine 10 mg PO QAM 09/10/18 10/21/18 History atorvastatin 10 mg PO DAILY 09/10/18 10/21/18 History cholecalciferol (vitamin D3) 2,000 units PO QAM 09/10/18 10/21/18 History [Vitamin D3] furosemide 20 mg PO BID PRN 09/10/18 10/21/18 History hydralazine 25 mg PO TID 09/10/18 10/21/18 History sodium bicarbonate 650 mg PO BID #60 tab 09/15/18 10/21/18 Rx sertraline 100 mg PO DAILY 10/21/18 10/21/18 History Personal History Living Arrangements: with parents Marital Status: (pending divorce filed by 06/2018) Beliefs That Will Affect Care: None and Christian (hindu alevism in [place]) Psychological Trauma History Comment: denies Patient History Medical History Acid reflux (Chronic) Hypertension (Chronic) Type I diabetes mellitus (Chronic) Gastroparesis due to DM (Chronic) Depression (Chronic) Anemia (Chronic) Diabetic nephropathy (Chronic) CKD stage 3 due to type 1 diabetes mellitus (Chronic) Anxiety (Chronic) Surgical History History of appendectomy (Resolved) H/O shoulder surgery (Resolved) History of hip surgery (Resolved) Family History Grandfather Myocardial infarction Social History Preferred Language: Georgian Communication Ability: Effective Shuttle Hand Required: No Beliefs That Will Affect Care: None marital status: Legally Current Living Situation: Parent current occupational status: employed Other Information That Helps Us Care for You: No Feels Safe at Home: Yes Safety Concerns: Feels Safe At This Time Smoking Status: Never smoker Tobacco Type: smokeless tobacco Do You Dip or Chew Tobacco: No Second Hand Exposure: No Tobacco Cessation Education Requested by Patient: No Hx Alcohol Use: No Hx Substance Use: No Physical Exam Psychiatric: Orientation: alert, oriented x 3 and cooperative laying in bed on his side in hospital gown covered by blankets, remains on his side but makes good EC Eye Contact: good eye contact Motor Behavior: no abnormal motor movements; no psychomotor agitation and no psychomotor retardation Speech: normal rate/rhythm/volume of speech Affect: + blunted affect Mood: + depressed mood and + anxious mood Thought Process: goal directed thought process and linear/logical thought process Thought Content: reality based without delusions Suicidal Thoughts: denies suicidal thoughts and denies suicidal plan Homicidal Thoughts: denies homicidal thoughts Halluci nations: no auditory hallucinations and no visual hallucinations Cognition: recent memory grossly intact Estimated Intelligence: average estimated intelligence Insight: good insight Judgement: good judgement Vital Signs (Past 24 Hours): Last Vital Signs Temp 37.2 C 11/01/18 15:13 Pulse 76 11/01/18 15:13 Resp 20 11/01/18 15:13 BP 129/69 11/01/18 15:13 Pulse Ox 96 11/01/18 15:13 Results & Data Medications Administered Acetaminophen (Tylenol) 650 mg PO Q4H PRN PRN Reason: Pain Stop: 11/21/18 10:04 Last Admin: 10/27/18 00:37 Dose: 650 mg Documented by: [id number] Amlodipine Besylate (Norvasc) 10 mg PO QAM JACKI Stop: 11/23/18 08:59 Last Admin: 11/01/18 07:59 Dose: 10 mg Documented by: [id number] Admin: 10/31/18 08:59 Dose: 10 mg Documented by: [id number] Admin: 10/30/18 08:17 Dose: 10 mg Documented by: [id number] Admin: 10/29/18 18:16 Dose: Not Given Documented by: [id number] Admin: 10/28/18 16:05 Dose: Not Given Documented by: [id number] Admin: 10/27/18 08:12 Dose: 10 mg Documented by: [id number] Admin: 10/26/18 07:47 Dose: 10 mg Documented by: [id number] Admin: 10/25/18 09:02 Dose: 10 mg Documented by: [id number] Admin: 10/24/18 10:07 Dose: 10 mg Documented by: [id number] Atorvastatin Calcium (Lipitor) 20 mg PO QAM JACKI Stop: 12/01/18 08:59 Last Admin: 11/01/18 07:59 Dose: 20 mg Documented by: [id number] Carvedilol (Coreg) 12.5 mg PO BID [facility] Stop: 11/23/18 10:29 Last Admin: 11/01/18 07:59 Dose: 12.5 mg Documented by: [id number] Admin: 10/31/18 21:36 Dose: 12.5 mg Documented by: [id number] Admin: 10/31/18 08:59 Dose: 12.5 mg Documented by: [id number] Admin: 10/30/18 20:32 Dose: 12.5 mg Documented by: [id number] Admin: 10/30/18 08:17 Dose: 12.5 mg Documented by: [id number] Admin: 10/29/18 20:58 Dose: 12.5 mg Documented by: [id number] Admin: 10/29/18 18:16 Dose: Not Given Documented by: [id number] Admin: 10/28/18 21:24 Dose: 12.5 mg Documented by: [id number] Admin: 10/28/18 16:05 Dose: Not Given Documented by: [id number] Admin: 10/27/18 23:49 Dose: Not Given Documented by: [id number] Admin: 10/27/18 08:11 Dose: 12.5 mg Documented by: [id number] Admin: 10/26/18 20:47 Dose: 12.5 mg Documented by: [id number] Admin: 10/26/18 07:47 Dose: 12.5 mg Documented by: [id number] Admin: 10/25/18 21:13 Dose: 12.5 mg Documented by: [id number] Admin: 10/25/18 09:01 Dose: 12.5 mg Documented by: [id number] Admin: 10/24/18 20:31 Dose: 12.5 mg Documented by: [id number] Admin: 10/24/18 12:48 Dose: 12.5 mg Documented by: [id number] Dextrose (Dextrose 50%) 25 - 50 ml IV UD PRN; Protocol PRN Reason: Hypoglycemia Protocol Stop: 11/20/18 03:16 Last Admin: 10/24/18 21:16 Dose: 25 ml Documented by: [id number] Admin: 10/21/18 17:10 Dose: 50 ml Documented by: [id number] Admin: 10/21/18 13:17 Dose: 25 ml Documented by: [id number] Admin: 10/21/18 13:15 Dose: 25 ml Documented by: [id number] Admin: 10/21/18 10:48 Dose: 25 ml Documented by: [id number] Famotidine (Pepcid) 20 mg PO QAM [facility] Stop: 12/01/18 08:59 Last Admin: 11/01/18 07:59 Dose: 20 mg Documented by: [id number] Heparin Sodium (Porcine) (Heparin Sodium (Porcine)) 5,000 units SQ Q12 [facility] Stop: 11/20/18 08:59 Last Admin: 11/01/18 08:02 Dose: Not Given Documented by: [id number] Admin: 10/31/18 21:36 Dose: Not Given Documented by: [id number] Admin: 10/31/18 09:00 Dose: Not Given Documented by: [id number] Admin: 10/30/18 20:33 Dose: Not Given Documented by: [id number] Admin: 10/30/18 11:40 Dose: Not Given Documented by: [id number] Admin: 10/29/18 22:51 Dose: Not Given Documented by: [id number] Admin: 10/25/18 21:13 Dose: 5,000 units Documented by: [id number] Cosigned by: [id number] Admin: 10/25/18 09:02 Dose: 5,000 units Documented by: [id number] Cosigned by: [id number] Admin: 10/24/18 20:36 Dose: 5,000 units Documented by: [id number] Cosigned by: [id number] Admin: 10/24/18 10:08 Dose: 5,000 units Documented by: [id number] Cosigned by: [id number] Admin: 10/23/18 19:58 Dose: 5,000 units Documented by: [id number] Cosigned by: [id number] Admin: 10/23/18 08:40 Dose: 5,000 units Documented by: [id number] Cosigned by: [id number] Admin: 10/22/18 20:22 Dose: 5,000 units Documented by: [id number] Cosigned by: [id number] Admin: 10/22/18 08:33 Dose: 5,000 units Documented by: [id number] Cosigned by: [id number] Admin: 10/21/18 20:36 Dose: 5,000 units Documented by: [id number] Cosigned by: [id number] Admin: 10/21/18 09:26 Dose: 5,000 units Documented by: [id number] Cosigned by: [id number] Hydralazine HCl (Apresoline) 25 mg PO TID PRN PRN Reason: Hypertension Stop: 11/22/18 13:59 Last Admin: 10/27/18 08:11 Dose: 25 mg Documented by: [id number] Hydralazine HCl (Apresoline) 50 mg PO BID JACKI Stop: 11/27/18 08:59 Last Admin: 11/01/18 07:58 Dose: 50 mg Documented by: [id number] Admin: 10/31/18 21:36 Dose: 50 mg Documented by: [id number] Admin: 10/31/18 09:00 Dose: 50 mg Documented by: [id number] Admin: 10/30/18 20:32 Dose: 50 mg Documented by: [id number] Admin: 10/30/18 08:16 Dose: 50 mg Documented by: [id number] Admin: 10/29/18 20:58 Dose: 50 mg Documented by: [id number] Admin: 10/29/18 18:16 Dose: Not Given Documented by: [id number] Admin: 10/28/18 21:25 Dose: 50 mg Documented by: [id number] Admin: 10/28/18 16:05 Dose: Not Given Documented by: [id number] Insulin Glargine (Lantus Solostar Pen) 18 units SC DAILY JACKI; Protocol Stop: 12/01/18 08:59 Last Admin: 11/01/18 08:03 Dose: 18 units Documented by: [id number] Cosigned by: [id number] Insulin Human Regular (Novolin R) 0 units SC ACHS JACKI Stop: 11/30/18 16:29 Last Admin: 11/01/18 14:29 Dose: Not Given Documented by: [id number] Admin: 11/01/18 07:56 Dose: 7 units Documented by: [id number] Cosigned by: [id number] Ioversol (Optiray 320 100ml) 93 ml IV ONCE PRN PRN Reason: Interaction Checking Stop: 11/02/18 09:14 Last Admin: 10/29/18 09:15 Dose: 93 ml Documented by: [id number] Metoclopramide HCl (Reglan) 5 mg IV Q6 JACKI Stop: 11/27/18 10:59 Last Admin: 11/01/18 13:10 Dose: 5 mg Documented by: [id number] Admin: 11/01/18 05:43 Dose: 5 mg Documented by: [id number] Admin: 10/31/18 23:20 Dose: 5 mg Documented by: [id number] Admin: 10/31/18 16:59 Dose: 5 mg Documented by: [id number] Admin: 10/31/18 12:40 Dose: 5 mg Documented by: [id number] Admin: 10/31/18 05:32 Dose: 5 mg Documented by: [id number] Admin: 10/31/18 00:16 Dose: 5 mg Documented by: [id number] Admin: 10/30/18 18:08 Dose: 5 mg Documented by: [id number] Admin: 10/30/18 12:06 Dose: 5 mg Documented by: [id number] Admin: 10/30/18 05:50 Dose: 5 mg Documented by: [id number] Admin: 10/30/18 01:23 Dose: 5 mg Documented by: [id number] Admin: 10/29/18 19:23 Dose: 5 mg Documented by: [id number] Admin: 10/29/18 12:14 Dose: 5 mg Documented by: [id number] Admin: 10/29/18 06:10 Dose: 5 mg Documented by: [id number] Admin: 10/28/18 23:59 Dose: 5 mg Documented by: [id number] Admin: 10/28/18 18:19 Dose: 5 mg Documented by: [id number] Admin: 10/28/18 11:26 Dose: 5 mg Documented by: [id number] Metoprolol Tartrate (Lopressor) 5 mg IV Q4 PRN PRN Reason: Blood Pressure - High Stop: 11/20/18 07:59 Last Admin: 11/01/18 13:11 Dose: 5 mg Documented by: [id number] Admin: 10/30/18 10:14 Dose: 5 mg Documented by: [id number] Admin: 10/30/18 04:24 Dose: 5 mg Documented by: [id number] Admin: 10/27/18 23:48 Dose: 5 mg Documented by: [id number] Admin: 10/24/18 00:54 Dose: 5 mg Documented by: [id number] Admin: 10/22/18 23:49 Dose: 5 mg Documented by: [id number] Admin: 10/22/18 18:18 Dose: 5 mg Documented by: [id number] Admin: 10/22/18 12:17 Dose: 5 mg Documented by: [id number] Admin: 10/22/18 04:38 Dose: 5 mg Documented by: [id number] Admin: 10/21/18 23:42 Dose: 5 mg Documented by: [id number] Admin: 10/21/18 17:35 Dose: 5 mg Documented by: [id number] Admin: 10/21/18 13:50 Dose: 5 mg Documented by: [id number] Miscellaneous (Carbohydrates For Hypoglycemia) 15 - 30 gm PO UD PRN PRN Reason: Hypoglycemia Treatment Stop: 11/20/18 03:16 Last Admin: 11/01/18 02:00 Dose: 15 gm Documented by: [id number] Admin: 11/01/18 01:00 Dose: 15 gm Documented by: [id number] Admin: 10/24/18 20:52 Dose: 15 gm Documented by: [id number] Admin: 10/24/18 20:35 Dose: 30 gm Documented by: [id number] Ondansetron HCl (Zofran) 4 mg IV Q6H PRN PRN Reason: Nausea Stop: 11/22/18 16:21 Last Admin: 10/31/18 20:31 Dose: 4 mg Documented by: [id number] Admin: 10/31/18 13:40 Dose: 4 mg Documented by: [id number] Admin: 10/30/18 04:21 Dose: 4 mg Documented by: [id number] Admin: 10/29/18 10:13 Dose: 4 mg Documented by: [id number] Admin: 10/29/18 03:08 Dose: 4 mg Documented by: [id number] Admin: 10/28/18 16:44 Dose: 4 mg Documented by: [id number] Admin: 10/28/18 08:06 Dose: 4 mg Documented by: [id number] Admin: 10/27/18 19:17 Dose: 4 mg Documented by: [id number] Admin: 10/27/18 16:48 Dose: 4 mg Documented by: [id number] Admin: 10/26/18 07:53 Dose: 4 mg Documented by: [id number] Admin: 10/25/18 21:22 Dose: 4 mg Documented by: [id number] Admin: 10/23/18 16:38 Dose: 4 mg Documented by: [id number] Sertraline HCl (Zoloft) 100 mg PO DAILY JACKI Stop: 11/22/18 08:59 Last Admin: 11/01/18 07:59 Dose: 100 mg Documented by: [id number] Admin: 10/31/18 09:00 Dose: 100 mg Documented by: [id number] Admin: 10/30/18 08:17 Dose: 100 mg Documented by: [id number] Admin: 10/29/18 18:16 Dose: Not Given Documented by: [id number] Admin: 10/28/18 16:06 Dose: Not Given Documented by: [id number] Admin: 10/27/18 08:11 Dose: 100 mg Documented by: [id number] Admin: 10/26/18 19:53 Dose: Not Given Documented by: [id number] Admin: 10/25/18 09:02 Dose: 100 mg Documented by: [id number] Admin: 10/24/18 10:07 Dose: 100 mg Documented by: [id number] Admin: 10/23/18 08:40 Dose: 100 mg Documented by: [id number]
[2018-11-01] MEDS ORDERED: VANCOMYCIN HCL 500 MG in SODIUM CHLORIDE 0.9% 250 ML IV SCH (16:00)
--- NOTE | 2018-11-01 19:59 | Progress Note ---
DATE: 11/01/2018 SUBJECTIVE: The patient vomited once yesterday afternoon, but none since then. He is tolerating regular food. He reports no abdominal pain, was seen by Psychiatry, which believes that the symptoms may be a component of his anxiety and depression. PHYSICAL EXAMINATION: VITAL SIGNS: Normal. He is afebrile. He was dialyzed today without incident. I think that being dialyzed may also be helping some of his nausea and vomiting. ABDOMEN: Soft. There are no masses, tenderness, or hepatosplenomegaly. IMPRESSION: The patient's nausea and vomiting is improving. This may be the result of treatment of a possible pyelonephritis, may be that his anxiety is improving. The dialysis may also be helping improve his uremia and electrolyte abnormalities. I plan on scheduling him for an EGD tomorrow afternoon on a nondialysis day just to rule out any potential other cause for his nausea and vomiting.
[2018-11-01] MEDS ORDERED: INSULIN HUMAN NPH SC SCH (21:00)
[2018-11-02] MEDS: DEXTROSE 50% 50 ML SYRINGE IV PRN (06:29)
[2018-11-02] MEDS: METOCLOPRAMIDE HCL INJ 5 MG/ML 2 ML VIAL IV SCH ×3 (06:37→18:14)
[2018-11-02] MEDS: INSULIN HUMAN REGULAR SC SCH ×2 (06:59→16:13)
[2018-11-02] MEDS: ATORVASTATIN 20 MG TAB PO SCH (07:48)
[2018-11-02] MEDS: AMLODIPINE BESYLATE 5 MG TAB PO SCH (07:48)
[2018-11-02] MEDS: SERTRALINE HCL 100 MG TABLET PO SCH (07:48)
[2018-11-02] MEDS: FAMOTIDINE 20 MG TAB PO SCH (07:49)
[2018-11-02] MEDS: HEPARIN SOD 5,000 UNIT/0.5 ML VIAL SQ SCH ×2 (07:49→20:08)
[2018-11-02] MEDS: HydrALAZINE TAB 50 MG TAB PO SCH ×2 (07:49→20:07)
[2018-11-02] MEDS: CARVEDILOL 12.5 MG TAB PO SCH ×2 (07:49→20:07)
--- NOTE | 2018-11-02 08:54 | Anesthesiology Consultation ---
Date of Service November 02, 2018 Assessment & Plan (1) Encounter for pre-operative examination: Chart Review Chart Review: Acceptable Risk for Surgery and Patient NOT seen in Pre Admission Testing Consults Requested none History Surgery Operation Date: 10/29/18 09:30 Proposed Procedures p Cardiac Cath Procedure - Manny Spivey MD Operation Date: 11/02/18 09:15 Proposed Procedures p Esophagogastroduodenoscopy Dr Juárez - Pancho Juárez Height/Weight Height: 5 ft 9 in Weight: 61.2 kg Allergies Allergy/AdvReac Type Severity Reaction Status Date / Time shellfish derived Allergy Severe anaphylaxis Verified 10/21/18 00:26 codeine Allergy Intermediate Hives Verified 10/21/18 00:26 promethazine Allergy Intermediate itchy/hives Verified 10/21/18 00:26 Medications Home Medications Medication Instructions Recorded Confirmed Last Taken metoprolol tartrate 25 mg PO BID #60 tab 08/13/18 10/21/18 09/10/18 AM DOSE Humalog U-100 Insulin 1 sliding scale dose SUBCUT CONT 09/10/18 10/21/18 Unknown amlodipine 10 mg PO QAM 09/10/18 10/21/18 09/10/18 atorvastatin 10 mg PO DAILY 09/10/18 10/21/18 09/10/18 cholecalciferol (vitamin D3) 2,000 units PO QAM 09/10/18 10/21/18 09/10/18 [Vitamin D3] furosemide 20 mg PO BID PRN 09/10/18 10/21/18 Unknown hydralazine 25 mg PO TID 09/10/18 10/21/18 09/10/18 AM DOSE sodium bicarbonate 650 mg PO BID #60 tab 09/15/18 10/21/18 Unknown sertraline 100 mg PO DAILY 10/21/18 10/21/18 Unknown Active Medications Generic Name Dose Route Start Last Admin Trade Name Freq PRN Reason Stop Dose Admin Acetaminophen 650 mg 10/22/18 10:05 10/27/18 00:37 Tylenol PO 11/21/18 10:04 650 mg Q4H PRN Administration Pain Amlodipine Besylate 10 mg 10/24/18 09:00 11/02/18 07:48 Norvasc PO 11/23/18 08:59 10 mg QAM JACKI Administration Atorvastatin Calcium 20 mg 11/01/18 09:00 05/28/19 07:48 Lipitor PO 12/01/18 08:59 20 mg QAM JACKI Administration Carvedilol 12.5 mg 10/24/18 10:30 11/02/18 07:49 Coreg PO 11/23/18 10:29 12.5 mg BID JACKI Administration Dextrose 25 - 50 ml 10/21/18 03:17 11/02/18 06:29 Dextrose 50% IV 11/20/18 03:16 25 ml UD PRN Administration Hypoglycemia Protocol Protocol Famotidine 20 mg 11/01/18 09:00 11/02/18 07:49 Pepcid PO 12/01/18 08:59 20 mg QAM JACKI Administration Heparin Sodium (Porcine) 5,000 units 10/21/18 09:00 11/02/18 07:49 Heparin Sodium (Porcine) SQ 11/20/18 08:59 Not Given Q12 JACKI Hydralazine HCl 25 mg 10/26/18 09:08 10/27/18 08:11 Apresoline PO 11/22/18 13:59 25 mg TID PRN Administration Hypertension Hydralazine HCl 50 mg 10/28/18 09:00 11/02/18 07:49 Apresoline PO 11/27/18 08:59 50 mg BID JACKI Administration Insulin Human Lispro 1 ea 11/02/18 12:45 11/02/18 14:49 Humalog Insulin Pump N/A 12/02/18 12:44 Not Given Q1H JACKI Protocol Metoclopramide HCl 5 mg 10/28/18 11:00 11/02/18 13:01 Reglan IV 11/27/18 10:59 5 mg Q6 JACKI Administration Metoprolol Tartrate 5 mg 10/21/18 07:01 11/01/18 13:11 Lopressor IV 11/20/18 07:59 5 mg Q4 PRN Administration Blood Pressure - High Miscellaneous 15 - 30 gm 10/21/18 03:17 11/01/18 02:00 Carbohydrates For Hypoglycemia PO 11/20/18 03:16 15 gm UD PRN Administration Hypoglycemia Treatment Ondansetron HCl 4 mg 10/23/18 16:22 10/31/18 20:31 Zofran IV 11/22/18 16:21 4 mg Q6H PRN Administration Nausea Sertraline HCl 150 mg 11/02/18 09:00 11/02/18 07:48 Zoloft PO 12/02/18 08:59 150 mg DAILY JACKI Administration NPO Date Last Intake of Fluids: 11/01/18 Time Last Intake of Fluids: 23:45 Date Last Intake of Solids: 11/01/18 Time Last Intake of Solids: 23:45 Past Medical History Medical History Acid reflux (Chronic) Hypertension (Chronic) Type I diabetes mellitus (Chronic) Gastroparesis due to DM (Chronic) Depression (Chronic) Anemia (Chronic) Diabetic nephropathy (Chronic) CKD stage 3 due to type 1 diabetes mellitus (Chronic) Anxiety (Chronic) Exercise / Class Metabolic Activity II 4-5 Yardwork/Stairs/Walk up hill Past Family History Family History Grandfather Myocardial infarction Past Surgical History Surgical History History of appendectomy (Resolved) H/O shoulder surgery (Resolved) History of hip surgery (Resolved) Past Anesthesia History No Hx of Anesthesia Complications and No Family Hx of Anesthesia Complications History of PONV No Hx of PONV and No Hx of Motion Sickness Social History Smoking Status: Never smoker tobacco type: smokeless tobacco Do You Dip or Chew Tobacco: No Hx Alcohol Use: No alcohol intake frequency: holidays/special occasions only Hx Substance Use: No substance use type: unknown Physical Exam Vital Signs Last Vital Signs Temp 37.3 C 11/02/18 14:40 Pulse 83 11/02/18 14:40 Resp 18 11/02/18 14:40 BP 144/81 H 11/02/18 14:40 Pulse Ox 94 11/02/18 14:40 Testing Laboratory Results 10/31/18 05:30 10/31/18 05:30 10/20/18 10/20/18 10/21/18 05:53 23:29 00:49 PT 9.9 INR 1.0 APTT 26.1 Hemoglobin A1c Urine Color Yellow Urine Appearance Clear Urine pH 5.0 Ur Specific [place] 1.021 Urine Protein 3+ H Urine Glucose (UA) 3+ H Urine Ketones Negative Urine Nitrite Negative Ur Leukocyte Esterase Negative Urine WBC (Auto) 5-10 H Urine RBC (Auto) 0-4 U Hyaline Cast (Auto) 1-5 U Epithel Cells (Auto) >30 H Urine Bacteria (Auto) Negative Blood Type B Negative Antibody Screen NEGATIVE 10/21/18 10/21/18 10/22/18 04:39 04:39 04:25 PT 10.3 10.3 INR 1.0 1.0 APTT 25.5 27.1 Hemoglobin A1c 6.5 H Urine Color Urine Appearance Urine pH Ur Specific [place] Urine Protein Urine Glucose (UA) Urine Ketones Urine Nitrite Ur Leukocyte Esterase Urine WBC (Auto) Urine RBC (Auto) U Hyaline Cast (Auto) U Epithel Cells (Auto) Urine Bacteria (Auto) Blood Type Antibody Screen 10/23/18 10/28/18 06:23 18:00 PT 10.1 INR 1.0 APTT 27.1 Hemoglobin A1c Urine Color Yellow Urine Appearance Clear Urine pH 6.5 Ur Specific [place] 1.020 Urine Protein 4+ H Urine Glucose (UA) 2+ H Urine Ketones Trace H Urine Nitrite Negative Ur Leukocyte Esterase Negative Urine WBC (Auto) 5-10 H Urine RBC (Auto) 5-10 H U Hyaline Cast (Auto) 1-5 U Epithel Cells (Auto) >30 H Urine Bacteria (Auto) Negative Blood Type Antibody Screen 10/29/18 11:00 Urine Culture - Final Urine,Straight Cath Coag negative Staphylococcus 10/29/18 15:34 Aerobic Blood Culture - Preliminary Blood No growth in Aerobic bottle after 48 hours. Anaerobic Blood Culture - Preliminary No growth in Anaerobic bottle after 48 hours. 10/29/18 12:45 Aerobic Blood Culture - Preliminary Blood No growth in Aerobic bottle after 48 hours. Anaerobic Blood Culture - Preliminary No growth in Anaerobic bottle after 48 hours. 10/20/18 23:46 Aerobic Blood Culture - Final Blood No growth in Aerobic bottle after 5 days. Anaerobic Blood Culture - Final No growth in Anaerobic bottle after 5 days. 10/20/18 23:29 Aerobic Blood Culture - Final Blood No growth in Aerobic bottle after 5 days. Anaerobic Blood Culture - Final No growth in Anaerobic bottle after 5 days. Electrocardiogram Date: 10/21/18 Findings: + NSR @ (80 bpm) Normal sinus rhythm Possible Left atrial enlargement Borderline ECG When compared with ECG of 27-OCT-2018 19:22, (unconfirmed) No significant change was found Confirmed by Dewayne Spivey ([id number]) on 10/28/2018 9:01:18 PM Chest X-Ray Date: 10/21/18 FINDINGS: Cardiac silhouette moderately enlarged. Pulmonary vasculature borderline prominent. Bronchial wall cuffing asymmetrically on the right. There is also asymmetric right perihilar and infrahilar opacity. Improved aeration of the left lung base due to the left thoracentesis. Small left pleural effusion remains. No large left pneumothorax. Osseous structures normal. Upper abdomen normal. IMPRESSION: 1. No significant pneumothorax status post left thoracentesis with expected decreased volume of left pleural effusion. 2. Improved aeration of the left lung base. 3. Right basilar/infrahilar infiltrate may represent edema or pneumonia. Consider PA and lateral views for better assessment. Echocardiogram Date: 10/21/18 EF: 45-50% LV systolic function is mildly reduced The LA is mildly dilated There is mild to moderate MR Moderate size pericardial effusion Compared to study from 08/2018, the LV function appears slightly worse and there is evidence of MR. The pericardial effusion is unchanged Cardiac Catheterization Date: 10/29/18 Preliminary Findings Mild, non-obstructive CAD. Right dominant system. Normal LV filling pressures.
[2018-11-02] MEDS ORDERED: INSULIN HUMAN NPH SC ONE (09:15)
[2018-11-02] MEDS ORDERED: INSULIN HUMAN LISPRO (humaLOG) 100 UNITS/ML VIAL SC PRN (12:00)
--- NOTE | 2018-11-02 12:46 | Hospitalist Progress Note ---
Date of Service November 02, 2018 Assessment & Plan (1) Pyelonephritis: Urine cx from 10/29 grew coag(-) Staph species. Blood cx's neg to date. CT of abd/pelvis with suggestion of pyelo along with BPH & cystitis. - Vanc started on 10/30 - Will switch to PO Bactrim once ready for discharge - Per pharm, Bactrim DS PO daily x 14 day total course. (2) Nausea and vomiting: Extensive w/u to date led to no etiology. CT head w/o pathology. RUQ u/s negative for gallstones or other biliary issues. Thus, obtained CT abd/pelvis showing possible pyelonephritis. - GI consulted - Plan for EGD today. (3) Neurogenic bladder: This has been observed on prior hospital stays and this stay. Due to diabetic neuropathy? - Recommend formal urological evaluation after d/c. - Consider Flomax for prostate. (4) ESRD (end stage renal disease): Patient had progressive worsening of his baseline CKD over the last 12 months. He has been followed by [facility] closely this admission and on previous admissions. He presented with volume overload/anasarca along with mild hyperkalemia earlier this stay. He did indeed diurese well enough to improve his volume status but it was felt he had reached ESRD status. He also underwent thoracentesis yielding 1300cc of transudative fluid. - S/p HD sessions x 3 this past week. - Will follow m/w/f schedule. - Appreciate nephrology assistance - Will follow up with [facility] on discharge on Thursday. (5) Chronic systolic (congestive) heart failure: EF 45-50% on echo this admission. EF was 55-60% on echo in August of this year. - There were regional wall motion abnormalities on most recent echo but cath this admission ruled out significant CAD. - Cardiology consult appreciated - Continue coreg. - Start lipitor 20mg daily. - Cardiology stated we can defer on aspirin for now. (6) Gastroparesis: Resumed erythromycin before meals but had prolific emesis/nausea this week despite using the EES. EES now on hold. - Reglan q6h IV being used in its place -> Switch to PO on 11/02 (7) Depression: Numerous stressors last over the last year -- divorce, move from his hometown of [place] to [place], worsening health status, etc - Seen by psychiatry who recommended continued sertraline at 150mg PO daily with increase to 200mg PO daily in 4 weeks if still having symptoms. (8) Type I diabetes mellitus: No DKA on labs. - Has been off/on insulin gtt for uncontrolled with persistent BSGs in the 500+ range. - Restarted insulin pump on 11/02 in preparation for discharge today or tomorrow - Appreciate pharmacy glycemic control consultation & management (9) Hypertension: BP high/normal inpatient presently. - Continue home medications - Adjust as needed (10) Nonobstructive atherosclerosis of coronary artery: Had troponin elevated to 0.2 on admission in setting of hypervolemia. Cardiac cath on 10/[address] Spivey showed only mild, non-obstructive CAD. Likely myocardial demand ischemia in setting of vomiting and ESRD. - No need for ASA per cardiology - Continue beta-deidre & statin (11) DVT prophylaxis: Heparin SC q12h Subjective Feels well. Wants to go home today, but plan for EGD. Review of Systems Review of Systems: All systems reviewed & are unremarkable except as noted in HPI & below Physical Exam Constitutional: WD/WN, vitals as above Eyes: EOM intact bilaterally; no conjunctival abnormality ENMT: external ear and nose normal, oropharynx normal Neck: trachea midline, no thyromegaly normal visual inspection Respiratory: normal respiratory effort, lungs clear to auscultation no respiratory distress Cardiovascular: RRR, no murmur, no edema Gastrointestinal (Abdomen): Inspection/Auscultation: abdomen normal to ins pection; abdomen not distended Musculoskeletal: no cyanosis or clubbing, extremities motor strength 5/5 Skin: no rashes, warm and dry Neurologic: moves all extremities and awake Psychiatric: Orientation: alert, oriented to person and cooperative Results & Data Vital Signs (Past 12 Hours) Vital Signs Temp Pulse Resp BP Pulse Ox 11/02/18 07:30 36.7 C 81 18 164/80 H 94 (1) Nausea and vomiting Vomiting type: unspecified Vomiting Intractability: intractable Qualified Code(s): R11.2 - Nausea with vomiting, unspecified (2) Depression Depression Type: other depression Qualified Code(s): F32.89 - Other specified depressive episodes (3) Type I diabetes mellitus Diabetes mellitus complication status: with kidney complications Diabetes mellitus complication detail: with chronic kidney disease Chronic kidney disease stage: stage 4 (severe) Qualified Code(s): E10.22 - Type 1 diabetes mellitus with diabetic chronic kidney disease; N18.4 - Chronic kidney disease, stage 4 (severe) (4) Hypertension Hypertension type: essential hypertension Qualified Code(s): I10 - Essential (primary) hypertension
--- NOTE | 2018-11-02 14:47 | Pharmacy Report ---
Pharm Abx/Gly Prg Nt - Date of Service November 02, 2018 - Scope Pharmacy has been consulted to manage vancomycin and glycemic control for this patient as per the Pharmacy & Therapeutics Committee approved dosing protocols. - Objective Height: 5 ft 9 in Weight: 58 kg Vital Signs (Past 12hrs): Vital Signs Temp Pulse Resp BP Pulse Ox 11/02/18 07:30 36.7 C 81 18 164/80 H 94 Lab Results: Laboratory Tests (24 Hours) 11/02/18 05:31 Random Vancomycin 20.5 Micro Results: 10/29/18 11:00 Urine Culture - Final Urine,Straight Cath Coag negative Staphylococcus 10/20/18 23:46 Aerobic Blood Culture - Final Blood No growth in Aerobic bottle after 5 days. Anaerobic Blood Culture - Final No growth in Anaerobic bottle after 5 days. 10/20/18 23:29 Aerobic Blood Culture - Final Blood No growth in Aerobic bottle after 5 days. Anaerobic Blood Culture - Final No growth in Anaerobic bottle after 5 days. Accuchecks BSG (last 24 hours):: 11/01/18 11/01/18 11/01/18 16:19 20:25 23:08 POC Glucose 104 H 174 H 192 H 11/02/18 11/02/18 11/02/18 06:19 06:21 06:45 POC Glucose 68 L* 65 L* 103 H 11/02/18 11/02/18 11/02/18 08:11 09:07 10:11 POC Glucose 88 96 102 H 11/02/18 11/02/18 11/02/18 11:35 12:50 13:46 POC Glucose 146 H 174 H 227 H HbA1C: 6.5 % (4.5-5.6) H 10/21/18 04:39 - Outpatient Anti-Diabetic Regimen Recent Pertinent Medications: Outpatient Anti-diabetic Regimen: * Humalog pump The patient is currently receiving: * Basal insulin: Lantus 18 units every 24 hours (last dose 11/01 in the morning) * Correctional Insulin: Novolog Correction per scale ACHS Goal Range: Low 100 mg/dL - High 150 mg/dL Correction Factor: 30 mg/dL/unit * Prandial insulin: Per carb ratio of 1 unit per 9 grams CHO consumed Risk Factors for Insulin Resistance: * Infection: vancomycin for UTI * Diet: NPO for EGD - Assessment & Plan Assessment: ID: * 48 year old M receiving vancomycin for treatment of UTI * Day # 09/19 of antimicrobial therapy Glycemic: Plan: ANTIMICROBIAL THERAPY Vancomycin * Random level of 20.5 mcg/mL is therapeutic * Continue dose of 500 mg IV after dialysis (no dialysis today) * Goal trough level: 15 to 20 mcg/mL * Random level ordered for: 11/03/18 to see if patient clears any vancomycin by himself INPATIENT GLYCEMIC CONTROL * Patient last received Lantus yesterday morning. There was interest in sending the patient home today so concern about providing exogenous insulin at this point. Instructed by endocrine office to place patient on automatic settings for pump so allow for some information gathering while starting HD. Desirable to place patient back on pump 24 hours prior to discharge to sample of he will respond. * Patient's father came in around 11 am and he helps with pump. Physician, Fariba, and SUJEY [place] worked with patient and father to place pump back on. Temporary basal rate set while NPO plus one hour checks. Patient can eat after EGD. * Patient will bolus himself. Basal Insulin * Humalog pump per settings Glycemic Control Discharge Recommendations: follow-up with [facility] end[facility]. Appointment being set up currently. Pharmacy will follow patient and adjust orders on a daily basis. Thank you for allowing us to participate in this patient�s care.
--- NOTE | 2018-11-02 14:51 | History & Physical Report ---
Date of Service November 02, 2018 History of Present Illness Chief Complaint: Nausea and vomiting Primary Care Provider: Yoshi Reyes DO For EGD Allergies Allergy/AdvReac Type Severity Reaction Status Date / Time shellfish derived Allergy Severe anaphylaxis Verified 10/21/18 00:26 codeine Allergy Intermediate Hives Verified 10/21/18 00:26 promethazine Allergy Intermediate itchy/hives Verified 10/21/18 00:26 Home Medications Home Medications Medication Instructions Recorded Confirmed Type metoprolol tartrate 25 mg PO BID #60 tab 08/13/18 10/21/18 Rx Humalog U-100 Insulin 1 sliding scale dose SUBCUT CONT 09/10/18 10/21/18 History amlodipine 10 mg PO QAM 09/10/18 10/21/18 History atorvastatin 10 mg PO DAILY 09/10/18 10/21/18 History cholecalciferol (vitamin D3) 2,000 units PO QAM 09/10/18 10/21/18 History [Vitamin D3] furosemide 20 mg PO BID PRN 09/10/18 10/21/18 History hydralazine 25 mg PO TID 09/10/18 10/21/18 History sodium bicarbonate 650 mg PO BID #60 tab 09/15/18 10/21/18 Rx sertraline 100 mg PO DAILY 10/21/18 10/21/18 History Past Med/Surg History Medical History Acid reflux (Chronic) Hypertension (Chronic) Type I diabetes mellitus (Chronic) Gastroparesis due to DM (Chronic) Depression (Chronic) Anemia (Chronic) Diabetic nephropathy (Chronic) CKD stage 3 due to type 1 diabetes mellitus (Chronic) Anxiety (Chronic) Surgical History History of appendectomy (Resolved) H/O shoulder surgery (Resolved) History of hip surgery (Resolved) Family History Grandfather Myocardial infarction Social History Preferred Language: Palestinian Communication Ability: Effective 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 Power Tool 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 Required: No Beliefs That Will Affect Care: None and Judaism (islam congregation in [place]) marital status: Legally Current Living Situation: Parent current occupational status: employed Other Information That Helps Us Care for You: No Feels Safe at Home: Yes Safety Concerns: Feels Safe At This Time Smoking Status: Never smoker Tobacco Type: smokeless tobacco Do You Dip or Chew Tobacco: No Second Hand Exposure: No Tobacco Cessation Education Requested by Patient: No Hx Alcohol Use: No Hx Substance Use: No Physical Exam Vital Signs (Past 24 Hours): Last Vital Signs Temp 37.3 C 11/02/18 14:40 Pulse 83 11/02/18 14:40 Resp 18 11/02/18 14:40 BP 144/81 H 11/02/18 14:40 Pulse Ox 94 11/02/18 14:40 Constitutional: well developed and well nourished Respiratory: normal respiratory effort Cardiovascular: Rate/Rhythm: regular rate and regular rhythm Gastrointestinal (Abdomen): Percussion/Palpation: abdomen soft Code Status & VTE Plan VTE Prophylaxis Plan VTE Prophylaxis will be ordered: Yes
[2018-11-02] MEDS ORDERED: LIDOCAINE HCL 2% 2 ML VIAL/AMP(20MG/ML) INFIL ONE (14:54)
[2018-11-02] MEDS ORDERED: PROPOFOL IV EMULSION 10 MG/ML 20 ML VIAL IV ONE (14:54)
[2018-11-02] MEDS ORDERED: SODIUM CHLORIDE 0.9% 1000ML 1,000 ML IV SCH (15:00)
--- NOTE | 2018-11-02 15:14 | GI REPORT ---
Patient Name: Jorge Alberto De Los Santos Procedure Date: 11/02/2018 2:54 PM Date of : 1970 Admit Type: Inpatient Age: 48 Gender: Male Attending MD: Pancho Juárez MD Procedure: Upper GI endoscopy Providers: Pancho Juárez MD Referring MD: Sergo Rey Md Indications: Nausea with vomiting Medicines: Propofol total dose 150 mg IV, Lidocaine 80 mg IV Complications: No immediate complications. Estimated Blood Loss: Estimated blood loss: none. Procedure: Pre-Anesthesia Assessment: - Prior to the procedure, a History and Physical was performed, and patient medications, allergies and sensitivities were reviewed. The patient's tolerance of previous anesthesia was reviewed. - The risks and benefits of the procedure and the sedation options and risks were discussed with the patient. All questions were answered and informed consent was obtained. After obtaining informed consent, the endoscope was passed under direct vision. Throughout the procedure, the patient's blood pressure, pulse, and oxygen saturations were monitored continuously. The Endoscope was introduced through the mouth, and advanced to the second part of duodenum. The upper GI endoscopy was accomplished without difficulty. The patient tolerated the procedure well. Findings: Patchy, white plaques were found in the entire esophagus. Cells for cytology were obtained by brushing. Estimated blood loss: none. The entire examined stomach was normal. The examined duodenum was normal. Impression: - Esophageal plaques were found, consistent with candidiasis. Cells for cytology obtained. - Normal stomach. - Normal examined duodenum. Recommendation: - [facility]. - Resume previous diet today. - Continue present medications. Pancho Juárez M.D. Pancho Juárez MD 11/02/2018 3:13:42 PM This report has been signed electronically. Note Initiated On: 11/02/2018 2:54 PM Number of Addenda: 0 I attest to the content of the Intraoperative Record and orders documented therein, exceptions below {[id number]}
--- NOTE | 2018-11-02 15:53 | Progress Note ---
DATE: 11/02/2018 The patient has had no vomiting today, but he has not had anything to eat. He underwent an EGD today to evaluate his nausea and vomiting. He did have mild Manuela esophagitis in his esophagus which was evaluated with brush cytology, but I recommend that be treated. There was no esophagitis from reflux. His stomach did not have a significant amount of residual food or fluid in it and appeared normal. I was able to go through the pylorus into the small bowel which also appeared normal. IMPRESSION: The patient has mild Manuela esophagitis which I would recommend treating. I will leave the decision to the primary care hospitalist as there may be some interactions with some of the medications with his dialysis or other medications that he is taking. No significant pathology was found to explain his nausea and vomiting endoscopically.
--- NOTE | 2018-11-02 15:53 | Anesthesiology Progress Note ---
Date of Service November 02, 2018 Anesthesia Post Procedure Vital Signs Vital Signs: Temp Pulse Pulse Resp BP BP Pulse Ox 11/02/18 15:39 83 16 131/81 94 11/02/18 15:24 78 16 125/69 93 11/02/18 15:12 71 16 110/62 96 11/02/18 14:40 37.3 C 83 18 144/81 H 94 11/02/18 07:30 36.7 C 81 18 164/80 H 94 11/01/18 23:10 36.7 C 86 16 129/73 94 11/01/18 18:14 96 11/01/18 18:11 36.9 C 79 18 118/65 Pain Intensity Back: Pain Intensity: 0 Transfer of Care Handoff Completed per policy Notes Mental Status: alert / awake / arousable and participated in evaluation Patient Amnestic to Procedure: Yes Nausea / Vomiting: adequately controlled Pain: adequately controlled Airway Patency, RR, SpO2: stable & adequate BP & HR: stable & adequate Hydration State: stable & adequate Anesthetic Complications: no major complications apparent and Pt Satisfied with anesthetic care
--- NOTE | 2018-11-02 20:05 | Nephrology Progress Note ---
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 s/p thoracentesis earlier this admission w/ transudative effusion from renal failure/ vol OL. Pt getting set up at [facility] for outpt dialysis: s/p 10/26 TDC placement at [facility]. Given challenges of OP f/u and self care and very symptomatic gastroparesis, not an immediate PD candidate though that could be discussed as OP. [facility]. -cont daily bmp -cont strict I/0 >first HD tx on 10/26; next one 10/27 3hr; plan next HD 11/03 as bedside >> will do lower flows/minimal uf to minimize hemodynamic changes >ideally then start OP dialysis chronically at [facility] [place] on 11/05>>pls have case mgt assist w/ this admissions process (2) Anemia: Patient with anemia of ESRD. Hemoglobin of 9.5 today. Iron stores adequate -started low dose joao 10/27. Will continue JOAO with HD (3) Hypertension: His blood pressure is high today but acceptable. No changes (4) Nausea and vomiting: defer to primary service on this; has been an issue prior to hd but txs can certainly complicate N mgt; cardiac/ GI eval in process > may need GI eval if all negative Subjective ESRD patient seen in f/u. Feels well denies any SOB. Eating well. Intermittent nausea. Has depression Review of Systems Review of Systems: All systems reviewed & are unremarkable except as noted in HPI & below Physical Exam Physical Exam: General exam: Appears comfortable, no acute distress HEENT: Pupils are equal and reactive to light Neck: No JVD, neck is supple trachea is midline Respiratory system: Clear breath sounds bilaterally. Gastrointestinal: Abdomen is soft, non distended, non tender, bowel sounds are present CVS: Regular rate and rhythm. No murmurs, rubs or gallops Musculoskeletal: No joint or muscle tenderness Extremities: Non tender, no edema, peripheral pulses are present Neuro: Oriented, no tremors, no focal neurological deficits Skin: No rashes Results & Data Vital Signs (Past 12 Hours) Vital Signs Temp Pulse Pulse Resp BP BP Pulse Ox 11/02/18 16:02 36.7 C 80 18 152/85 H 95 11/02/18 15:39 83 16 131/81 94 11/02/18 15:24 78 16 125/69 93 11/02/18 15:12 71 16 110/62 96 11/02/18 14:40 37.3 C 83 18 144/81 H 94 Laboratory Results Laboratory Results - last 24 hr 11/01/18 11/01/18 11/02/18 20:25 23:08 05:31 POC Glucose 174 H 192 H Random Vancomycin 20.5 11/02/18 11/02/18 11/02/18 06:19 06:21 06:45 POC Glucose 68 L* 65 L* 103 H Random Vancomycin 11/02/18 11/02/18 11/02/18 08:11 09:07 10:11 POC Glucose 88 96 102 H Random Vancomycin 11/02/18 11/02/18 11/02/18 11:35 12:50 13:46 POC Glucose 146 H 174 H 227 H Random Vancomycin 11/02/18 15:59 POC Glucose 161 H Random Vancomycin (1) Anemia Anemia type: unspecified type Qualified Code(s): D64.9 - Anemia, unspecified (2) Hypertension Hypertension type: essential hypertension Qualified Code(s): I10 - Essential (primary) hypertension (3) Nausea and vomiting Vomiting type: unspecified Vomiting Intractability: intractable Qualified Code(s): R11.2 - Nausea with vomiting, unspecified
[2018-11-03] MEDS: METOCLOPRAMIDE HCL INJ 5 MG/ML 2 ML VIAL IV SCH ×3 (00:29→14:01)
[2018-11-03 05:42] LABS: Hematocrit (blood only) 25.9 % (42-52); Hemoglobin 8.7 g/dL (14.0-18.0); Mean Corpuscular Hgb Conc 33.6 g/dL (32-36); Mean Corpuscular Volume 89.6 fL (80-100); Mean Platelet Volume 8.8 fL (7.4-10.4); Platelet Count 272 K/uL (130-400); RDW Standard Deviation 45.5 fL (36.4-46.3); Red Blood Count 2.89 M/uL (4.7-6.1); White Blood Count 11.14 K/uL (4.8-10.8)
[2018-11-03 06:24] LABS: BUN Creatinine Ratio 10.2 (10-20); Calcium 7.5 mg/dl (8.5-10.1); Creatinine Clr Calc Pharmacy 13.2 ml/min; Est GFR (African American) 12.7; Magnesium 2.3 mg/dl (1.8-2.4); Potassium 4.1 mmol/L (3.5-5.1)
[2018-11-03] MEDS: AMLODIPINE BESYLATE 5 MG TAB PO SCH (08:17)
[2018-11-03] MEDS: FAMOTIDINE 20 MG TAB PO SCH (08:18)
[2018-11-03] MEDS: SERTRALINE HCL 100 MG TABLET PO SCH (08:18)
[2018-11-03] MEDS: CARVEDILOL 12.5 MG TAB PO SCH (08:18)
[2018-11-03] MEDS: ATORVASTATIN 20 MG TAB PO SCH (08:18)
[2018-11-03] MEDS: HydrALAZINE TAB 50 MG TAB PO SCH (08:18)
[2018-11-03] MEDS: HEPARIN SOD 5,000 UNIT/0.5 ML VIAL SQ SCH (08:19)
[2018-11-03] MEDS ORDERED: SODIUM CHLORIDE 0.9% 1000ML 1,000 ML IV PRN (08:30)
[2018-11-03] MEDS ORDERED: HEPARIN SOD (PORCINE) 1000 UNIT/ML 10 ML VIAL IV SCH (09:00)
[2018-11-03] MEDS ORDERED: EPOETIN ALFA 10,000 UNITS/ML VIAL IV SCH (09:00)
--- NOTE | 2018-11-03 11:40 | Nephrology Progress Note ---
Date of Service November 03, 2018 Assessment & Plan (1) CKD (chronic kidney disease) stage 5, GFR less than 15 ml/min: CKD stage V due to diabetic nephropathy; now ESRD w/ complications of volume overload and failure to thrive/ multiple admissions here/ pt historically not doing OP follow up at previous admissions. s/p thoracentesis earlier this admission w/ transudative effusion from renal failure/ vol OL. Pt getting set up at [facility] for outpt dialysis: s/p 10/26 TDC placement at [facility]. Given challenges of OP f/u and self care and very symptomatic gastroparesis, not an immediate PD candidate though that could be discussed as OP. [facility] -[facility] daily bmp -cont strict I/0 >first HD tx on 10/26; next one 10/27 3hr. > Patient is being dialyzed this morning for 3-1/2 hours and to get UF of 2 L. He is tolerating dialysis well. Next dialysis will be on Thursday > From renal standpoint patient can be discharged to start OP dialysis chronically at [facility] on 11/05>>pls have case mgt assist w/ this admissions process (2) Anemia: Patient with anemia of ESRD. Hemoglobin of 9.5 today. Iron stores adequate -started low dose jooa 10/27. Will give 10,000 units of Epogen with HD (3) Hypertension: His blood pressure is high today but acceptable. No changes (4) Nausea and vomiting: Less likely due to uremia as patient has been adequately dialyzed now. Patient was found to have mild candidiasis on EGD yesterday. Will defer to primary service for treatment. Subjective ESRD patient seen in follow-up. He was seen and examined on dialysis. No shortness of breath or lower extremity swelling. No vomiting or diarrhea. He had EGD yesterday which showed mild candidiasis. He is tolerating dialysis well this morning. Review of Systems Review of Systems: All systems reviewed & are unremarkable except as noted in HPI & below Physical Exam Physical Exam: General exam: Appears comfortable, no acute distress HEENT: Pupils are equal and reactive to light Neck: No JVD, neck is supple trachea is midline Respiratory system: Clear breath sounds bilaterally. Gastrointestinal: Abdomen is soft, non distended, non tender, bowel sounds are present CVS: Regular rate and rhythm. No murmurs, rubs or gallops Musculoskeletal: No joint or muscle tenderness Extremities: Non tender, no edema, peripheral pulses are present Neuro: Oriented, no tremors, no focal neurological deficits Skin: No rashes Vascular access: Tunneled dialysis catheter Results & Data Vital Signs (Past 12 Hours) Vital Signs Temp Pulse Resp BP Pulse Ox 11/03/18 07:53 36.7 C 79 18 166/88 H 96 Laboratory Results Laboratory Results - last 24 hr 11/02/18 11/02/18 11/02/18 11:35 12:50 13:46 WBC RBC Hgb Hct MCV MCH MCHC RDW Std Deviation RDW Coeff of Kami Plt Count MPV Sodium Potassium Chloride Carbon Dioxide Anion Gap BUN Creatinine Est Cr Clr Drug Dosing Est GFR ( Amer) Est GFR (Non-Af Amer) BUN/Creatinine Ratio Glucose POC Glucose 146 H 174 H 227 H Calcium Magnesium Random Vancomycin 11/02/18 11/02/18 11/02/18 15:59 20:11 23:58 WBC RBC Hgb Hct MCV MCH MCHC RDW Std Deviation RDW Coeff of Kami Plt Count MPV Sodium Potassium Chloride Carbon Dioxide Anion Gap BUN Creatinine Est Cr Clr Drug Dosing Est GFR ( Amer) Est GFR (Non-Af Amer) BUN/Creatinine Ratio Glucose POC Glucose 161 H 261 H 165 H Calcium Magnesium Random Vancomycin 11/03/18 11/03/18 11/03/18 03:53 05:17 05:17 WBC 11.14 H RBC 2.89 L Hgb 8.7 L Hct 25.9 L MCV 89.6 MCH 30.1 MCHC 33.6 RDW Std Deviation 45.5 RDW Coeff of Kami 14.0 Plt Count 272 MPV 8.8 Sodium Potassium Chloride Carbon Dioxide Anion Gap BUN Creatinine Est Cr Clr Drug Dosing Est GFR ( Amer) Est GFR (Non-Af Amer) BUN/Creatinine Ratio Glucose POC Glucose 230 H Calcium Magnesium Random Vancomycin 16.6 11/03/18 11/03/18 05:17 07:35 WBC RBC Hgb Hct MCV MCH MCHC RDW Std Deviation RDW Coeff of Kami Plt Count MPV Sodium 135 L Potassium 4.1 Chloride 99 Carbon Dioxide 27 Anion Gap 9.0 BUN 57 H Creatinine 5.63 H* Est Cr Clr Drug Dosing 13.2 Est GFR ( Amer) 12.7 Est GFR (Non-Af Amer) 11.0 BUN/Creatinine Ratio 10.2 Glucose 169 H POC Glucose 126 H Calcium 7.5 L Magnesium 2.3 Random Vancomycin (1) Anemia Anemia type: unspecified type Qualified Code(s): D64.9 - Anemia, unspecified (2) Hypertension Hypertension type: essential hypertension Qualified Code(s): I10 - Essential (primary) hypertension (3) Nausea and vomiting Vomiting type: unspecified Vomiting Intractability: intractable Qualified Code(s): R11.2 - Nausea with vomiting, unspecified
[2018-11-03] MEDS: HEPARIN SOD (PORCINE) 1000 UNIT/ML 10 ML VIAL IV SCH (13:05)
[2018-11-03] MEDS ORDERED: AMOXICILLIN 500 MG CAP PO STA (14:01)
[2018-11-03] MEDS ORDERED: FLUCONAZOLE 200 MG/5 ML UDP PO STA (14:30)
--- NOTE | 2018-11-03 14:32 | Discharge Summary ---
Date of Service November 03, 2018 Admission HPI Per Admitting Provider For EGD Principal Diagnosis Pyelonephritis Esophageal candidiasis Discharge Exam Constitutional WD/WN, vitals as above Eyes EOM intact bilaterally; no conjunctival abnormality ENMT external ear and nose normal, oropharynx normal Neck trachea midline, no thyromegaly normal visual inspection Respiratory normal respiratory effort, lungs clear to auscultation no respiratory distress Cardiovascular RRR, no murmur, no edema Gastrointestinal (Abdomen) Inspection/Auscultation: abdomen normal to inspection; abdomen not distended Musculoskeletal no cyanosis or clubbing, extremities motor strength 5/5 Skin no rashes, warm and dry Neurologic moves all extremities and awake Psychiatric Orientation: alert, oriented to person and cooperative Discharge Data Allergies Allergy/AdvReac Type Severity Reaction Status Date / Time shellfish derived Allergy Severe anaphylaxis Verified 10/21/18 00:26 codeine Allergy Intermediate Hives Verified 10/21/18 00:26 promethazine Allergy Intermediate itchy/hives Verified 10/21/18 00:26 Consultations 10/21/18 00:32 Consult Impregnator Operator Routine ED Decision to Admit Stat 10/21/18 03:17 Consult Case Management - Discharge Planning Routine Consult Impregnator Operator Routine 10/21/18 07:05 Consult Nephrology Routine 10/28/18 14:15 Consult Cardiology Routine 10/30/18 09:21 Consult Gastroenterology Routine 10/31/18 16:06 Consult Psychiatry Routine 11/02/18 15:08 Consult Impregnator Operator Routine Procedures Performed Operation Date: 10/29/18 09:30 Actual Procedures p Cath, Left with Cors and Vent - Manny Spivey MD s Cineradiography w/Routine Exam(Not Applicable) - Manny Spivey MD Operation Date: 11/02/18 09:15 Actual Procedures p Esophagogastroduodenoscopy - Pancho Juárez Ordered Studies 10/28/18 10:57 US gallbladder Urgent 10/29/18 08:18 CT abd pelvis IV con only Stat 10/29/18 08:32 CL Cath Imgs for PACS use only Routine 10/30/18 09:17 CT head/brain wo con Routine Hospital Course (1) Pyelonephritis: Urine cx from 10/29 grew coag(-) Staph species. Blood cx's neg to date. CT of abd/pelvis with suggestion of pyelo along with BPH & cystitis. - Vanc started on 10/30 - Switched to PO amoxicillin for discharge. Will need 7 more days: Will need 500mg on non-HD days and 2 doses (one before and one after HD) on dialsyis days. Discussed this with the patient. (2) Nausea and vomiting: Extensive w/u to date led to no etiology. CT head w/o pathology. RUQ u/s negative for gallstones or other biliary issues. Thus, obtained CT abd/pelvis showing possible pyelonephritis. - GI consulted - EGD on 11/02 showed candidal esophagitis. - Discharged on 2 weeks of fluconazole 200mg PO daily. Will need to follow up with GI on discharge. (3) Neurogenic bladder: This has been observed on prior hospital stays, but no major issues toward the end of his admission this time. Due to diabetic neuropathy? - Recommend formal urological evaluation as outpatient. (4) ESRD (end stage renal disease): Patient had progressive worsening of his baseline CKD over the last 12 months. He has been followed by [facility] closely this admission and on previous admissions. He presented with volume overload/anasarca along with mild hyperkalemia earlier this stay. He did indeed diurese well enough to improve his volume status but it was felt he had reached ESRD status. He also underwent thoracentesis yielding 1300cc of transudative fluid. - S/p HD sessions x 2 this past week. - Will follow m/w/f schedule. - Appreciate nephrology assistance - Will follow up with [facility] on discharge on Thursday. (5) Chronic systolic (congestive) heart failure: EF 45-50% on echo this admission. EF was 55-60% on echo in August of this year. - There were regional wall motion abnormalities on most recent echo but left heart cath this admission ruled out significant CAD. - Continued coreg. - Started atorvastatin 10mg daily. - Cardiology stated we can defer on aspirin for now. (6) Gastroparesis: Resumed erythromycin before meals but had prolific emesis/nausea this week despite using the EES. EES now on hold. - Reglan q6h IV being used in its place -> [facility] - Hopefully fluconazole will help his nausea and vomiting. (7) Depression: Numerous stressors last over the last year -- divorce, move from his hometown of [place] to [place], worsening health status, etc - Seen by psychiatry who recommended continued sertraline at 150mg PO daily with increase to 200mg PO daily in 4 weeks if still having symptoms. (8) Type I diabetes mellitus: No DKA on labs. - Has been off/on insulin gtt for uncontrolled with persistent BSGs in the 500+ range. - Restarted insulin pump on 11/02 in preparation for discharge - Sugars were in good control on discharge. - Appreciate pharmacy glycemic control consultation & management (9) Hypertension: BP high/normal inpatient presently. - Continue home medications - Adjust as needed (10) Nonobstructive atherosclerosis of coronary artery: Had troponin elevated to 0.2 on admission in setting of hypervolemia. Cardiac cath on 10/[address] Spivey showed only mild, non-obstructive CAD. Likely myocardial demand ischemia in setting of vomiting and ESRD. - No need for ASA per cardiology - Continue beta-deidre & statin (11) DVT prophylaxis: Heparin SC q12h Total Time Total Time Spent Total Time Spent (In Minutes): 35 Total Time Includes: Examination of the Patient, Discharge Planning, Medication Reconciliation and Communication With Other Providers Discharge Plan Discharge Items Patient Disposition: Home - Home Health Services Reason For Visit: ACUTE RENAL FAILURE,ANASARCA,SYMPTOMATIC ANEMIA,HY Discharge Diagnosis: Kidney infection, renal failure with need for ongoing dialysis Discharge Goals: Decrease discomfort, Diagnostic testing and Improve function Activity: Resume your previous activity Non-emergency contact: Primary Care Provider and Railway Station Manager Call non-emergency contact if: you have any medication questions, your symptoms worsen and your temperature is above 100.5 Follow-up/Referrals: Suman Montilla MD [Physician] - Yoshi Reyes DO [Primary Care Provider] - Diet: Carb Count or DM1 and Dialysis Renal Addtl Provider Instructions: Mr. De Los Santos, You were in the hospital for several reasons. First, you had a kidney infection that caused nausea and vomiting. We have the bacteria that caused this, and we have started you on an antibiotic that you will take for 6 more days. You will take it one time per day on non-HD days, then 2 times on days with hemodialysis. On dialysis days, take one pill before you go to hemodialysis and then take the second tablet after you get home. You also had some nausea and vomiting from the kidney infection. The GI doctors did a scope that found some Manuela infection in your esophagus. We are going to treat this with fluconazole which will help kill the yeast. This will hopefully improve any remaining nausea. Please follow up with the nephrology doctors and go to hemodialysis on Thursday morning. Prescriptions: New carvedilol 12.5 mg Tablet 12.5 mg PO BID Qty: 60 RF: 0 sertraline 100 mg Tablet 150 mg PO DAILY Qty: 60 RF: 0 hydralazine 50 mg Tablet 50 mg PO BID Qty: 60 RF: 0 amoxicillin 500 mg capsule 500 mg PO DAILY Qty: 10 RF: 0 fluconazole 200 mg tablet 200 mg PO DAILY Qty: 14 RF: 0 insulin lispro [Humalog U-100 Insulin] 100 unit/mL Solution 1 dose Not Applicable ACHS Qty: 1 RF: 0 Continued atorvastatin 10 mg tablet 10 mg PO DAILY RF: 0 amlodipine 10 mg tablet 10 mg PO QAM RF: 0 furosemide 20 mg tablet 20 mg PO BID PRN (Reason: Fluid Retention) RF: 0 cholecalciferol (vitamin D3) [Vitamin D3] 2,000 unit capsule 2,000 units PO QAM RF: 0 Humalog U-100 Insulin 100 unit/mL Cartridge 1 sliding scale dose SUBCUT CONT RF: 0 sodium bicarbonate 650 mg tablet 650 mg PO BID Qty: 60 RF: 0 sertraline 100 mg Tablet 100 mg PO DAILY RF: 0 Discontinued metoprolol tartrate 25 mg Tablet 25 mg PO BID Qty: 60 RF: 0 hydralazine 25 mg tablet 25 mg PO TID RF: 0 Stand-Alone Forms: [facility] Discharge Orders: Discharge Order (Routine); Ordered 11/03/18 Ordered By: Sergo Rey Admission Data Admit Date/Time: 10/21/18 02:01 Attending Provider: Sergo Rey Admit Provider: Colton Guajardo Primary Care Provider: Yoshi Reyes Other Providers: Candelaria Ford ; Home,Nursing Agency ; Pancho Juárez ; Colton Guajardo ; Suman Montilla ; Manny Spivey ; Estefania Sutton Service: Medical
--- NOTE | 2018-11-28 20:51 | Cardiac Catheterization ---
Date of Service October 29, 2018 Cardiac Cath Report Cardiac Cath Report Procedure performed: Left heart catheterization, coronary angiography Staff educational institution curator: Dewayne Spivey MD Indication: The patient is a 48-year-old gentleman with multiple risk factors for coronary disease. He has symptoms of chest discomfort and elevated cardiac biomarkers. Procedure in detail: The patient was informed of the risks benefits and alternatives to the intended procedure, he understood such and wished to proceed. He was taken to the cardiac catheterization suite in a fasting state. Conscious sedation was administered per protocol and the patient was monitored electrocardiographically throughout today's procedure. The right wrist area was prepped and draped in usual sterile fashion. This area was anesthetized using subcutaneous administration of a lidocaine solution. The right radial artery was then accessed using Seldinger technique, and a arterial sheath was placed at this site over a guidewire. The sheath was used to facilitate passage of the cardiac catheter for coronary angiography and left heart catheterization. Coronary angiogram was then obtained in multiple orthogonal views prior to removal of the catheter. At the conclusion of the procedure the sheath was removed and hemostasis was achieved at the access site using manual pressure. The patient tolerated procedure well, there were no immediate complications. Equipment used: 5 [place] 4 Findings: Opening aortic pressure: 117/64 mmHg Left ventricular end-diastolic pressure 12 mmHg Left ventricular pressure 109/ 5 mmHg Coronary angiography: Left main: The left main coronary artery is normal in size and caliber and effectively trifurcated into left anterior descending, ramus intermedius and left circumflex branch. Left anterior descending: Left anterior descending was a large transapical ves prakash which wraps around the apex. It produced a single large diagonal system. There is no obstructive disease in the left anterior descending system. Left circumflex artery: Left circumflex artery was a nondominant vessel. It produced a very diminutive first OM branch and a medium sized second OM. The ongoing AV groove vessel was small. There was no obstructive disease in left circumflex system. Ramus intermedius: Ramus intermedius was a medium sized vessel without obstructive disease. Right coronary artery: Coronary was a large dominant vessel. It was very tortuous in its midportion. There is no obstructive disease in the right coronary artery. Impression: Right dominant coronary system No evidence of aortic stenosis Normal left ventricular pressures No obstructive coronary disease
== END 2018-11-03 15:41 | disposition home health service (06) ==
LOC: ED 22:34 → 1E 10-21 02:01 → SUATTDRO 10-21 02:01 → 1E 10-21 03:14 → 2S 10-22 14:11 → 4E 11-01 16:11

== ENCOUNTER 2018-12-19 19:03 | Inpatient (IN) ==
[2018-12-19] MEDS ORDERED: DEXTROSE 50% 50 ML SYRINGE IV ONE (19:11)
[2018-12-19] MEDS ORDERED: ONDANSETRON INJ 2 MG/ML 2 ML VIAL ONE (19:18)
[2018-12-19] MEDS ORDERED: DEXTROSE 50% 50 ML SYRINGE IV PRN ×2 (19:30→23:56)
[2018-12-19] MEDS ORDERED: SODIUM CHLORIDE 0.9% 500 ML IV SCH (19:30)
[2018-12-19] MEDS ORDERED: ONDANSETRON INJ 2 MG/ML 2 ML VIAL IV STA (19:30)
[2018-12-19 19:37] LABS: Basophils # (auto) 0.05 K/uL (0-0.2); Basophils % (auto) 0.4 %; Eosinophils # (auto) 0.06 K/uL (0-0.5); Eosinophils % (auto) 0.5 %; Hematocrit (blood only) 37.4 % (42-52); Hemoglobin 12.5 g/dL (14.0-18.0); Immature Granulocytes # (auto) 0.05 K/uL (0.00-0.02); Immature Granulocytes % (auto) 0.4 %; Lymphocytes # (auto) 1.48 K/uL (1.2-3.4); Lymphocytes % (auto) 11.1 %; Mean Corpuscular Hgb Conc 33.4 g/dL (32-36); Mean Corpuscular Volume 89.9 fL (80-100); Mean Platelet Volume 9.2 fL (7.4-10.4); Monocytes # (auto) 1.01 K/uL (0.11-0.59); Monocytes % (auto) 7.6 %; Neutrophils # (auto) 10.64 K/uL (1.4-6.5); Platelet Count 362 K/uL (130-400); RDW Coefficient of Variation 13.8 % (11.5-14.5); RDW Standard Deviation 45.1 fL (36.4-46.3); Red Blood Count 4.16 M/uL (4.7-6.1); White Blood Count 13.29 K/uL (4.8-10.8)
[2018-12-19 19:53] LABS: Gastric Occult Blood Positive (Negative); pH Gastric Fluid 1
[2018-12-19] MEDS ORDERED: DiphenhydrAMINE HCL 50 MG/ML VIAL IV STA (20:03)
[2018-12-19] MEDS ORDERED: PROCHLORPERAZINE 5 MG in SYRINGE 4 ML IV PRN (20:03)
[2018-12-19] MEDS ORDERED: PROCHLORPERAZINE 5 MG/ML 2 ML VIAL ONE ×2 (20:06→22:49)
[2018-12-19 20:07] LABS: Albumin Globulin Ratio 1.1 (0.9-2); BUN Creatinine Ratio 9.4 (10-20); Bilirubin,Total 0.4 mg/dl (0.2-1); Calcium 9.2 mg/dl (8.5-10.1); Creatinine Clr Calc Pharmacy 13.7 ml/min; Est GFR (African American) 11.8; Est GFR (Non-African American) 10.2; Globulin 3.6 gm/dl (2.5-4.0); Potassium 3.1 mmol/L (3.5-5.1); Total Protein 7.6 gm/dl (6.4-8.2)
[2018-12-19] MEDS ORDERED: IOVERSOL 100ml IV PRN (20:56)
--- NOTE | 2018-12-19 21:42 | CT Scan Report ---
CT SCAN OF THE ABDOMEN AND PELVIS WITH IV CONTRAST CLINICAL HISTORY: Vomiting. COMPARISON STUDY: Prior abdominal CT scans, most recently dated 10/29/2018. TECHNIQUE: Following the IV administration of 94 cc of Optiray 320, CT scan of the abdomen and pelvi s is performed from the lung bases to the proximal femora. Images are reviewed in the axial, sagittal , and coronal planes. IV contrast was administered without complication. Enteric contrast was attempt ed but the patient vomiting.. A dose lowering technique was utilized adhering to the principles of AL CACHORRO. CT DOSE: 258.32 mGy.cm FINDINGS: Lung bases: The heart is top normal in size and there is a small pericardial effusion. The lung bases are clear. There is a small hiatal hernia. Liver: The contrast-enhanced liver is normal in size, contour, and attenuation. There is no intrahepa tic biliary ductal dilatation. The hepatic veins and portal veins are patent. Gallbladder: Unremarkable. Spleen: Normal in size and attenuation. Pancreas: Unremarkable. Adrenal glands: Unremarkable. Kidneys: The contrast enhanced kidneys are normal in size and without hydronephrosis. The kidneys enh ance symmetrically. There is a 6 mm nonobstructing calculus in the lower pole of the right kidney. Th ere are 2 cortical hypodensities in the left kidney. These likely represent cysts but are too small f or definitive characterization, and are similar to previous. Abdominal vasculature: The abdominal aorta is normal in course and caliber noting mild atheroscleroti c calcification. Bowel: Fecal retention is noted in the rectosigmoid colon. There is mild diffuse colonic wall thicken ing and edema with pericolonic infiltration. The appearance suggests a nonspecific proctocolitis. No bowel obstruction is seen. The appendix is not identified and reported surgically absent Peritoneum: There is no intraperitoneal free air or abdominal ascites. Lymphadenopathy: None. Pelvic viscera: The prostate gland is mildly enlarged and heterogeneous. The bladder wall is thickene d and hyperemic and there is pericystic stranding. Calcification of the penile tunica suggests Peyron ie's disease. Skeletal structures: The skeletal structures are osteopenic. There are chronic compression deformitie s of T11 and T12. A bone island is noted in the right iliac wing. No lytic or blastic lesions are see n. IMPRESSION: 1. Findings are consistent with a nonspecific proctocolitis, likely on an infectious or inflammatory basis in this age group. Clinical correlation will be required. 2. There is fecal retention in the rectosigmoid colon. 3. Right-sided nephrolithiasis. 4. The bladder wall appears thickened and hyperemic and there is pericystic inflammation. Correlate c linically and with urinalysis for evidence of cystitis. 5. Pericardial effusion. 6. Additional findings as above. Electronically signed by: Dev Burden M.D. 12/19/2018 9:41 PM
[2018-12-19] MEDS ORDERED: FAMOTIDINE 20MG/5ML IV PUSH IV STA (22:26)
[2018-12-19] MEDS ORDERED: PROCHLORPERAZINE 5 MG in SYRINGE 4 ML IV ONE (22:45)
--- NOTE | 2018-12-19 23:21 | History & Physical Report ---
Date of Service December 19, 2018 Assessment & Plan (1) Nausea and vomiting: Unclear how much of this is related to gastroparesis and how much is related to anxiety of family not being home, suspect more of the latter. He has been given Zofran IV and Compazine IV in the ED, both of which will be continued. Present on Admission?: Yes (2) Diabetes mellitus type 1, with complication, on retirement insulin pump: Discontinue his insulin pump at this time. Placed on D5 half-normal saline x1 L at 80 mL's per hour. Follow serial Accu-Cheks with NovoLog coverage. Check hemoglobin A1c. Present on Admission?: Yes (3) Hypoglycemia due to type 1 diabetes mellitus: See above. Present on Admission?: Yes (4) End-stage renal disease on hemodialysis: Will consult his molding engineer Dr. Suman Montilla. He was given IV dye by the ED for CT of abdomen and pelvis,, and will likely dialyze in the morning. Present on Admission?: Yes (5) Anxiety with depression: Placed on Lorazepam 1 mg IV every 4 hours as needed. Hold sertraline 150 mg p.o. daily for now until taking p.o. Present on Admission?: Yes (6) HTN (hypertension): Hold amlodipine. Blood pressure elevated in ED due to anxiety. We will give lorazepam 1 mg IV, blood pressure still elevated, will give IV Lopressor or hydralazine. Present on Admission?: Yes (7) Gastroparesis: On metoclopramide 5 mg p.o. twice daily, which will be held for now due to n.p.o. state. CT of abdomen and pelvis suggest possible proctocolitis, which is more likely stercoral colitis due to inadequate oral intake and fluid loss. We will place on IV fluids and follow. Present on Admission?: Yes History of Present Illness Chief Complaint: The patient presents to the emergency department after his parents found him at home in a decreased responsive state. Primary Care Provider: Yoshi Reyes, DO The patient is a 48-year-old male with a past medical history including ESRD on HD, diabetes mellitus poorly controlled by insulin pump, hypertension, history of anasarca, depression who was found by his family at home when they returned from being away. Upon arrival in the emergency department, his glucose was found to be 58, his insulin pump was removed, and he was given an amp of D50. Patient while in the ED has had intermittent nausea and vomiting, amplified significantly by anxiety and depression, as he is presented in the past. Allergies Allergy/AdvReac Type Severity Reaction Status Date / Time shellfish derived Allergy Severe anaphylaxis Verified 12/19/18 19:59 codeine Allergy Intermediate Hives Verified 12/19/18 19:59 promethazine Allergy Intermediate itchy/hives Verified 12/19/18 19:59 Home Medications Home Medications Medication Instructions Recorded Confirmed Type Humalog U-100 Insulin 1 sliding scale dose SUBCUT CONT 09/10/18 12/19/18 History atorvastatin 10 mg PO DAILY 09/10/18 12/19/18 History cholecalciferol (vitamin D3) 2,000 units PO QAM 09/10/18 12/19/18 History [Vitamin D3] sertraline 150 mg PO DAILY #60 tab 11/03/18 12/19/18 Rx B complex with C#20-folic acid 1 cap PO DAILY 12/19/18 12/19/18 History [Chris Caps] amlodipine 10 mg PO QAM 12/19/18 12/19/18 History calcium acetate See Rx Instructions .ROUTE 12/19/18 12/19/18 History .COMPLEX MDD 7 CAPSULES/DAY erythromycin See Rx Instructions .ROUTE .COMPLEX 12/19/18 12/19/18 History metoclopramide HCl 5 mg PO BID 12/19/18 12/19/18 History Past Med/Surg History Medical History Acid reflux (Chronic) Hypertension (Chronic) Type I diabetes mellitus (Chronic) Gastroparesis due to DM (Chronic) Depression (Chronic) Anemia (Chronic) Diabetic nephropathy (Chronic) CKD stage 3 due to type 1 diabetes mellitus (Chronic) Anxiety (Chronic) Surgical History History of appendectomy (Resolved) H/O shoulder surgery (Resolved) History of hip surgery (Resolved) Family History Grandfather Myocardial infarction Social History Preferred Language: Kazakh Communication Ability: Effective Beliefs That Will Affect Care: None and [employer] ([employer] in [facility] marital status: Legally Current Living Situation: Parent current occupational status: employed Feels Safe at Home: Yes Smoking Status: Never smoker Tobacco Type: smokeless tobacco Second Hand Exposure: No Hx Alcohol Use: No Hx Substance Use: No Review of Systems Review of Systems: Limited review of systems due to patient lack of responsiveness Physical Exam Physical Exam: The patient is awake, lying on his right side, looks depressed, normocephalic and atraumatic, lying in bed and in no acute distress. HEENT--PERRL, EOMI, mucous membranes and oropharynx dry. Neck--supple. No JVD. No bruits. Thyroid normal, trachea midline, no adenopathy. Heart--mildly tachycardic. No murmurs, rubs or gallops. Lungs--clear bilaterally, no respiratory distress, no accessory muscle use. Abdomen--normal bowel sounds and soft. Nontender. Nondistended, no hernias or masses, no organomegaly. Extremities--no cyanosis or clubbing. No edema. There are good distal pulses b/l. Dermatologic--normal skin turgor, normal color, no abnormal lymph nodes, no rash. Neurologic--cranial nerves II through XII grossly intact. Rheumatologic--normal range of motion. Psychiatric-depressed Results & Data Vital Signs (Past 12 Hours) Vital Signs Temp Pulse Pulse Resp BP BP Pulse Ox 12/19/18 23:05 93 H 17 189/105 H 98 12/19/18 22:01 92 H 13 12/19/18 22:00 93 H 9 L 190/107 H 12/19/18 21:01 93 H 15 12/19/18 21:00 92 H 14 191/99 H 12/19/18 20:58 93 H 19 180/98 H 12/19/18 20:09 87 14 199/116 H 12/19/18 20:00 87 10 L 12/19/18 19:34 90 15 12/19/18 19:21 98 12/19/18 19:04 97.3 F L 84 20 173/79 H 100 Laboratory Results Laboratory Results WBC 13.29 K/uL (4.8-10.8) H 12/19/18 19:10 RBC 4.16 M/uL (4.7-6.1) L 12/19/18 19:10 Hgb 12.5 g/dL (14.0-18.0) L 12/19/18 19:10 Hct 37.4 % (42-52) L 12/19/18 19:10 MCV 89.9 fL (80-100) 12/19/18 19:10 MCH 30.0 pg (25-34) 12/19/18 19:10 MCHC 33.4 g/dL (32-36) 12/19/18 19:10 RDW Std Deviation 45.1 fL (36.4-46.3) 12/19/18 19:10 RDW Coeff of Kami 13.8 % (11.5-14.5) 12/19/18 19:10 Plt Count 362 K/uL (130-400) 12/19/18 19:10 MPV 9.2 fL (7.4-10.4) 12/19/18 19:10 Immature Gran % (Auto) 0.4 % 12/19/18 19:10 Neut % (Auto) 80.0 % 12/19/18 19:10 Lymph % (Auto) 11.1 % 12/19/18 19:10 [place] % (Auto) 7.6 % 12/19/18 19:10 Eos % (Auto) 0.5 % 12/19/18 19:10 Baso % (Auto) 0.4 % 12/19/18 19:10 Immature Gran # (Auto) 0.05 K/uL (0.00-0.02) H 12/19/18 19:10 Neut # (Auto) 10.64 K/uL (1.4-6.5) H 12/19/18 19:10 Lymph # (Auto) 1.48 K/uL (1.2-3.4) 12/19/18 19:10 [place] # (Auto) 1.01 K/uL (0.11-0.59) H 12/19/18 19:10 Eos # (Auto) 0.06 K/uL (0-0.5) 12/19/18 19:10 Baso # (Auto) 0.05 K/uL (0-0.2) 12/19/18 19:10 Sodium 136 mmol/L (136-145) 12/19/18 19:10 Potassium 3.1 mmol/L (3.5-5.1) L 12/19/18 19:10 Chloride 100 mmol/L (98-107) 12/19/18 19:10 Carbon Dioxide 23 mmol/L (21-32) 12/19/18 19:10 Anion Gap 13.0 (3-11) H 12/19/18 19:10 BUN 57 mg/dl (7-18) H 12/19/18 19:10 Creatinine 5.99 mg/dl (0.6-1.4) H* 12/19/18 19:10 Est Cr Clr Drug Dosing 13.7 ml/min 12/19/18 19:10 Est GFR ( Amer) 11.8 12/19/18 19:10 Est GFR (Non-Af Amer) 10.2 12/19/18 19:10 BUN/Creatinine Ratio 9.4 (10-20) L 12/19/18 19:10 Glucose 58 mg/dl (70-99) L 12/19/18 19:10 POC Glucose 168 (70-99) H 12/19/18 22:53 Calcium 9.2 mg/dl (8.5-10.1) 12/19/18 19:10 Total Bilirubin 0.4 mg/dl (0.2-1) 12/19/18 19:10 AST 15 U/L (15-37) 12/19/18 19:10 ALT 22 U/L (12-78) 12/19/18 19:10 Alkaline Phosphatase 127 U/L (45-117) H 12/19/18 19:10 Total Protein 7.6 gm/dl (6.4-8.2) 12/19/18 19:10 Albumin 4.0 gm/dl (3.4-5.0) 12/19/18 19:10 Globulin 3.6 gm/dl (2.5-4.0) 12/19/18 19:10 Albumin/Globulin Ratio 1.1 (0.9-2) 12/19/18 19:10 Lipase 263 U/L (73-393) 12/19/18 19:10 Gastric Fluid pH 1 12/19/18 19:40 Gastric Occult Blood Positive (Negative) A 12/19/18 19:40 Diagnostic Findings [facility], [place] [phone] CT Scan Report Patient: JERARDO PEREZ Date: 12/19/18 MR#: [id number]: [address] Acct ID:[id number]: Date: 1970City Zip: [place] [address] Age: 48Location: ED Sex: M Room/Bed: Att Phy: Diagnosis: VOMITING,BLOOD SUGAR DROPPING Pascale Phy: Yoshi Reyes, DOService Date: 12/19/18 Fam Phy: Interpreting Phy: Dev Burden MD Admit Phy: Ordering Phy: Obie Lancaster, DO cc: ~ CT SCAN OF THE ABDOMEN AND PELVIS WITH IV CONTRAST CLINICAL HISTORY: Vomiting. COMPARISON STUDY: Prior abdominal CT scans, most recently dated 10/29/2018. TECHNIQUE: Following the IV administration of 94 cc of Optiray 320, CT scan of the abdomen and pelvis is performed from the lung bases to the proximal femora. Images are reviewed in the axial, sagittal, and coronal planes. IV contrast was administered without complication. Enteric contrast was attempted but the patient vomiting.. A dose lowering technique was utilized adhering to the principles of ALARA. CT DOSE: 258.32 mGy.cm FINDINGS: Lung bases: The heart is top normal in size and there is a small pericardial effusion. The lung bases are clear. There is a small hiatal hernia. Liver: The contrast-enhanced liver is normal in size, contour, and attenuation. There is no intrahepatic biliary ductal dilatation. The hepatic veins and portal veins are patent. Gallbladder: Unremarkable. Spleen: Normal in size and attenuation. Pancreas: Unremarkable. Adrenal glands: Unremarkable. Kidneys: The contrast enhanced kidneys are normal in size and without hydronephrosis. The kidneys enhance symmetrically. There is a 6 mm nonobstructing calculus in the lower pole of the right kidney. There are 2 cortical hypodensities in the left kidney. These likely represent cysts but are too small for definitive characterization, and are similar to previous. Abdominal vasculature: The abdominal aorta is normal in course and caliber noting mild atherosclerotic calcification. Bowel: Fecal retention is noted in the rectosigmoid colon. There is mild diffuse colonic wall thickening and edema with pericolonic infiltration. The appearance suggests a nonspecific proctocolitis. No bowel obstruction is seen. The appendix is not identified and reported surgically absent Peritoneum: There is no intraperitoneal free air or abdominal ascites. Lymphadenopathy: None. Pelvic viscera: The prostate gland is mildly enlarged and heterogeneous. The bladder wall is thickened and hyperemic and there is pericystic stranding. Calcification of the penile tunica suggests Peyronie's disease. Skeletal structures: The skeletal structures are osteopenic. There are chronic compression deformities of T11 and T12. A bone island is noted in the right iliac wing. No lytic or blastic lesions are seen. IMPRESSION: 1. Findings are consistent with a nonspecific proctocolitis, likely on an inf ectious or inflammatory basis in this age group. Clinical correlation will be required. 2. There is fecal retention in the rectosigmoid colon. 3. Right-sided nephrolithiasis. 4. The bladder wall appears thickened and hyperemic and there is pericystic inflammation. Correlate clinically and with urinalysis for evidence of cystitis. 5. Pericardial effusion. 6. Additional findings as above. Electronically signed by: Dev Burden M.D. 12/19/2018 9:41 PM Dictated: 12/19/182131 Transcribed: 12/19/182131 Code Status & VTE Plan Code Status Full code VTE Prophylaxis Plan VTE Prophylaxis will be ordered: Yes PG Care Time/CCT Total # of Minutes Spent Total Time Spent with Patient: Total time spent is greater than 50% in coordination of care (as documented) at patient's floor/unit and/or counseling patient: (1) Nausea and vomiting Vomiting type: unspecified Vomiting Intractability: intractable Qualified Code(s): R11.2 - Nausea with vomiting, unspecified
[2018-12-19] MEDS ORDERED: GLUCOSE 40% GEL 15 GM TUBE PO PRN (23:56)
[2018-12-19] MEDS ORDERED: D5W AND 1/2NSS 1,000 ML IV SCH (23:56)
[2018-12-19] MEDS ORDERED: GLUCAGON FOR INJ 1 MG VIAL SQ PRN (23:56)
[2018-12-19] MEDS ORDERED: GLUCOSE 10 TABS/TUBE PO PRN (23:56)
[2018-12-19] MEDS ORDERED: PROCHLORPERAZINE 10 MG in SYRINGE 8 ML IV PRN (23:56)
[2018-12-19] MEDS ORDERED: ACETAMINOPHEN 325 MG TAB PO PRN (23:56)
[2018-12-20] MEDS ORDERED: LORazepam 1 MG/2 ML VIAL IV PRN (00:05)
--- NOTE | 2018-12-20 01:15 | Emergency Department Note ---
Entered by Edgar Angel acting as a scribe for History of Present Illness General Chief complaint: Hypoglycemia Stated complaint: VOMITING,BLOOD SUGAR DROPPING Source: patient and family Limitations: no limitations History of Present Illness Onset (ago): hour(s) 5 Location: abdomen Pain Consistency: + intermittent Quality: + other (brown vomit) Associated symptoms: + denies other symptoms (blurred vision, pain with urination, abdominal pain) and + nausea/vomiting; no chest pain, no headaches and no shortness of breath The patient is a 48 white male w/ PMHx CHF, ESRD, gastroparesis, HTN, diabetes, and anemia who presents to the ED w/ CC of intermittent vomiting beginning 5 hours ago. The patient's mother states the patient had breakfast at 1000. The p atient states he has been having nausea. He notes his vomit has been brown. He notes he is on dialysis because of poorly controlled diabetes. He notes he gets dialysis every Thursday, Thursday, and Thursday. The patient states he last received dialysis 2 days ago. He notes he has been able to urinate. He states his last bowel movement was this morning. He denies abdominal pain, chest pain, SOB, pain with urination, headaches, blurred vision, blood in the vomit, and anyone else being sick in his family. The patient notes he got a new insulin pump in July. He notes this does not feel like gastroparesis. Home Medications Home Medications Medication Instructions Recorded Confirmed Type Humalog U-100 Insulin 1 sliding scale dose SUBCUT CONT 09/10/18 12/19/18 History atorvastatin 10 mg PO DAILY 09/10/18 12/19/18 History cholecalciferol (vitamin D3) 2,000 units PO QAM 09/10/18 12/19/18 History [Vitamin D3] sertraline 150 mg PO DAILY #60 tab 11/03/18 12/19/18 Rx B complex with C#20-folic acid 1 cap PO DAILY 12/19/18 12/19/18 History [Ramsey Caps] amlodipine 10 mg PO QAM 12/19/18 12/19/18 History calcium acetate See Rx Instructions .ROUTE 12/19/18 12/19/18 History .COMPLEX MDD 7 CAPSULES/DAY erythromycin See Rx Instructions .ROUTE .COMPLEX 12/19/18 12/19/18 History metoclopramide HCl 5 mg PO BID 12/19/18 12/19/18 History Allergies Allergy/AdvReac Type Severity Reaction Status Date / Time shellfish derived Allergy Severe anaphylaxis Verified 12/19/18 19:59 codeine Allergy Intermediate Hives Verified 12/19/18 19:59 promethazine Allergy Intermediate itchy/hives Verified 12/19/18 19:59 Past Med/Surg History Medical History Acid reflux (Chronic) Hypertension (Chronic) Type I diabetes mellitus (Chronic) Gastroparesis due to DM (Chronic) Depression (Chronic) Anemia (Chronic) Diabetic nephropathy (Chronic) CKD stage 3 due to type 1 diabetes mellitus (Chronic) Anxiety (Chronic) Surgical History History of appendectomy (Resolved) H/O shoulder surgery (Resolved) History of hip surgery (Resolved) Family History Grandfather Myocardial infarction Social History Preferred Language: Azeri Communication Ability: Effective Insert Operator Required: No Beliefs That Will Affect Care: None marital status: Legally Current Living Situation: Parent current occupational status: employed Other Information That Helps Us Care for You: No Feels Safe at Home: Yes Safety Concerns: Feels Safe At This Time Smoking Status: Never smoker Tobacco Type: smokeless tobacco Do You Dip or Chew Tobacco: No Second Hand Exposure: No Tobacco Cessation Education Requested by Patient: No Hx Alcohol Use: No Hx Substance Use: No Review of Systems See HPI for pertinent positives & negatives. and A total of 10 systems reviewed and were otherwise negative Physical Exam Vital Signs Vital Signs - 24 hr 12/19/18 19:04 12/19/18 19:21 12/19/18 19:34 Temperature 36.3 C L Temperature Source Oral Sepsis Recent Fever Within 48 Hours No Sepsis Action Taken by Nursing No Action Required Pulse Rate 84 90 Pulse Rate [Apical] Respiratory Rate 20 15 Respiratory Effort / Characteristics Non-Labored Spontaneous Respiratory Depth Normal Blood Pressure 173/79 H Blood Pressure [Right Arm] Blood Pressure Mean 110 Blood Pressure Mean [Right Arm] Pulse Oximetry 100 98 Oxygen Delivery Method Room Air Room Air 12/19/18 20:00 12/19/18 20:09 07/14/19 20:58 Temperature Temperature Source Sepsis Recent Fever Within 48 Hours Sepsis Action Taken by Nursing Pulse Rate 87 87 93 H Pulse Rate [Apical] Respiratory Rate 10 L 14 19 Respiratory Effort / Characteristics Respiratory Depth Blood Pressure 199/116 H 180/98 H Blood Pressure [Right Arm] Blood Pressure Mean 143 125 Blood Pressure Mean [Right Arm] Pulse Oximetry Oxygen Delivery Method 12/19/18 21:00 12/19/18 21:01 12/19/18 22:00 Temperature Temperature Source Sepsis Recent Fever Within 48 Hours Sepsis Action Taken by Nursing Pulse Rate 92 H 93 H 93 H Pulse Rate [Apical] Respiratory Rate 14 15 9 L Respiratory Effort / Characteristics Respiratory Depth Blood Pressure 191/99 H 190/107 H Blood Pressure [Right Arm] Blood Pressure Mean 129 134 Blood Pressure Mean [Right Arm] Pulse Oximetry Oxygen Delivery Method 12/19/18 22:01 12/19/18 23:05 Temperature Temperature Source Sepsis Recent Fever Within 48 Hours Sepsis Action Taken by Nursing Pulse Rate 92 H Pulse Rate [Apical] 93 H Respiratory Rate 13 17 Respiratory Effort / Characteristics Respiratory Depth Blood Pressure Blood Pressure [Right Arm] 189/105 H Blood Pressure Mean Blood Pressure Mean [Right Arm] 133 Pulse Oximetry 98 Oxygen Delivery Method Room Air GENERAL: alert. Chronically-ill appearing. Holding emesis bag with coffee grounds present. Mild distress. EYE EXAM: normal conjunctiva OROPHARYNX: no exudate, no erythema, lips, buccal mucosa, and tongue normal and mucous membranes are dry. NECK: supple, no nuchal rigidity, no adenopathy, non-tender LUNGS: Clear to auscultation. Normal chest wall mechanics. CHEST: Central axis in right upper chest wall appears clean, dry, and intact. Sutures in place. HEART: no murmurs, S1 normal and S2 normal. Tachycardic. ABDOMEN: abdomen soft, non-tender, normo-active bowel sounds, no masses, no rebound or guarding. Insulin device in place on mid-abdomen. BACK: Back is symmetrical on inspection and there is no deformity, no midline tenderness, no CVA tenderness. SKIN: no rashes and no bruising UPPER EXTREMITIES: upper extremities are grossly normal. LOWER EXTREMITIES: No pitting edema. NEURO EXAM: Normal sensorium, cranial nerves II-XII grossly intact, normal speech, no gross weakness of arms, no gross weakness of legs. Course ED COURSE: Vital signs were reviewed and showed hypertension. The patients medical record was reviewed The above diagnostic studies were performed and reviewed. ED treatments and interventions as stated above. 1924: The patient was evaluated in room A12. A complete history and physical examination was performed. 1999: I reevaluated the patient. He is still vomiting. 2239: I discussed the patient's case with Dr. Guajardo - [facility] Hospitalist. He will evaluate the patient for further management 2244: Upon reevaluation, the patient is getting admitted and is still nauseous. I discussed my findings with the patient and he understands and agrees with the treatment plan. Based on the patients age, coexisting illnesses, exam and lab findings the decision to treat as an inpatient was made. The patient remained stable while under my care. The patient will be evaluated for further management. Administered Medications Dextrose/Sodium Chloride (D5w And 1/2nss) 1,000 mls @ 80 mls/hr IV .[id number] JACKI Stop: 12/20/18 12:25 Last Admin: 12/20/18 00:33 Dose: 80 mls/hr Documented by: [id number] Lorazepam (Ativan) 1 mg in 2 mls @ 2 mls/min IV Q4H PRN PRN Reason: Anxiety Stop: 01/19/19 00:04 Last Admin: 12/20/18 00:33 Dose: 2 mls/min Documented by: [id number] Discontinued Medications Dextrose (Dextrose 50%) Confirm Administered Dose 50 ml IV .STK-MED ONE Stop: 12/19/18 19:12 Last Admin: 12/19/18 19:25 Dose: 50 ml Documented by: [id number] Diphenhydramine HCl (Benadryl) 25 mg IV NOW STA Stop: 12/19/18 20:04 Last Admin: 12/19/18 20:10 Dose: 25 mg Documented by: [id number] Famotidine (Pepcid 20mg Iv Push) 20 mg IV ONE STA Stop: 12/19/18 22:27 Last Admin: 12/19/18 22:42 Dose: 20 mg Documented by: [id number] Sodium Chloride (Nss) 500 mls @ 999 mls/hr IV .Q31M JACKI Stop: 12/19/18 20:00 Last Infusion: 12/19/18 20:51 Dose: 0 mls/hr Documented by: [id number] Admin: 12/19/18 20:10 Dose: 999 mls/hr Documented by: [id number] Prochlorperazine 5 mg/ Syringe 5 mls @ 5 mls/min IV ONE ONE Stop: 12/19/18 22:46 Last Admin: 12/19/18 22:50 Dose: Not Given Documented by: [id number] Ioversol (Optiray 320 100ml) 94 ml IV ONCE PRN PRN Reason: Interaction Checking Stop: 12/23/18 20:55 Last Admin: 12/19/18 20:56 Dose: 94 ml Documented by: [id number] Ondansetron HCl (Zofran) Confirm Administered Dose 4 mg .ROUTE .STK-MED ONE Stop: 12/19/18 19:19 Last Admin: 12/19/18 19:25 Dose: 4 mg Documented by: [id number] Ondansetron HCl (Zofran) 4 mg IV NOW STA Stop: 12/19/18 19:31 Last Admin: 12/19/18 19:54 Dose: Not Given Documented by: [id number] Prochlorperazine (Compazine) Confirm Administered Dose 10 mg .ROUTE .STK-MED ONE Stop: 12/19/18 20:07 Last Admin: 12/19/18 20:09 Dose: 5 mg Documented by: [id number] Prochlorperazine (Compazine) Confirm Administered Dose 10 mg .ROUTE .STK-MED ONE Stop: 12/19/18 22:50 Last Admin: 12/19/18 22:50 Dose: 5 mg Documented by: [id number] Medical Decision Making Differential Diagnosis Differential diagnoses includes but is not limited to gastritis, peptic ulcer disease, GERD, gallbladder disease, pancreatitis, small bowel obstruction, acute coronary syndrome, pericarditis, ischemic bowel, irritable bowel disease, irritable bowel syndrome, appendicitis, diverticulitis, malignancy, hernia, urinary tract infection, torsion, perforation, trauma, infectious. Medical Records Attestation: I reviewed the patient's medical records. Home Medications Current Medication List: was personally reviewed by me Laboratory Data Attestation: I reviewed the patient's lab results. Result diagrams: 12/19/18 19:10 12/19/18 19:10 Lab Results 12/19/18 12/19/18 12/19/18 Range/Units 19:10 19:10 19:12 WBC 13.29 H (4.8-10.8) K/uL RBC 4.16 L (4.7-6.1) M/uL Hgb 12.5 L (14.0-18.0) g/dL Hct 37.4 L (42-52) % MCV 89.9 (80-100) fL MCH 30.0 (25-34) pg MCHC 33.4 (32-36) g/dL RDW Std Deviation 45.1 (36.4-46.3) fL RDW Coeff of Kami 13.8 (11.5-14.5) % Plt Count 362 (130-400) K/uL MPV 9.2 (7.4-10.4) fL Immature Gran % (Auto) 0.4 % Neut % (Auto) 80.0 % Lymph % (Auto) 11.1 % [place] % (Auto) 7.6 % Eos % (Auto) 0.5 % Baso % (Auto) 0.4 % Immature Gran # (Auto) 0.05 H (0.00-0.02) K/uL Neut # (Auto) 10.64 H (1.4-6.5) K/uL Lymph # (Auto) 1.48 (1.2-3.4) K/uL [place] # (Auto) 1.01 H (0.11-0.59) K/uL Eos # (Auto) 0.06 (0-0.5) K/uL Baso # (Auto) 0.05 (0-0.2) K/uL Sodium 136 (136-145) mmol/L Potassium 3.1 L (3.5-5.1) mmol/L Chloride 100 (98-107) mmol/L Carbon Dioxide 23 (21-32) mmol/L Anion Gap 13.0 H (3-11) BUN 57 H (7-18) mg/dl Creatinine 5.99 H* (0.6-1.4) mg/dl Est Cr Clr Drug Dosing 13.7 ml/min Est GFR ( Amer) 11.8 Est GFR (Non-Af Amer) 10.2 BUN/Creatinine Ratio 9.4 L (10-20) Glucose 58 L (70-99) mg/dl POC Glucose 55 L* (70-99) Calcium 9.2 (8.5-10.1) mg/dl Total Bilirubin 0.4 (0.2-1) mg/dl AST 15 (15-37) U/L ALT 22 (12-78) U/L Alkaline Phosphatase 127 H (45-117) U/L Total Protein 7.6 (6.4-8.2) gm/dl Albumin 4.0 (3.4-5.0) gm/dl Globulin 3.6 (2.5-4.0) gm/dl Albumin/Globulin Ratio 1.1 (0.9-2) Lipase 263 (73-393) U/L Gastric Fluid pH Gastric Occult Blood (Negative) 12/19/18 12/19/18 12/19/18 Range/Units 19:40 20:14 22:53 WBC (4.8-10.8) K/uL RBC (4.7-6.1) M/uL Hgb (14.0-18.0) g/dL Hct (42-52) % MCV (80-100) fL MCH (25-34) pg MCHC (32-36) g/dL RDW Std Deviation (36.4-46.3) fL RDW Coeff of Kami (11.5-14.5) % Plt Count (130-400) K/uL MPV (7.4-10.4) fL Immature Gran % (Auto) % Neut % (Auto) % Lymph % (Auto) % [place] % (Auto) % Eos % (Auto) % Baso % (Auto) % Immature Gran # (Auto) (0.00-0.02) K/uL Neut # (Auto) (1.4-6.5) K/uL Lymph # (Auto) (1.2-3.4) K/uL [place] # (Auto) (0.11-0.59) K/uL Eos # (Auto) (0-0.5) K/uL Baso # (Auto) (0-0.2) K/uL Sodium (136-145) mmol/L Potassium (3.5-5.1) mmol/L Chloride (98-107) mmol/L Carbon Dioxide (21-32) mmol/L Anion Gap (3-11) BUN (7-18) mg/dl Creatinine (0.6-1.4) mg/dl Est Cr Clr Drug Dosing ml/min Est GFR ( Amer) Est GFR (Non-Af Amer) BUN/Creatinine Ratio (10-20) Glucose (70-99) mg/dl POC Glucose 152 H 168 H (70-99) Calcium (8.5-10.1) mg/dl Total Bilirubin (0.2-1) mg/dl AST (15-37) U/L ALT (12-78) U/L Alkaline Phosphatase (45-117) U/L Total Protein (6.4-8.2) gm/dl Albumin (3.4-5.0) gm/dl Globulin (2.5-4.0) gm/dl Albumin/Globulin Ratio (0.9-2) Lipase (73-393) U/L Gastric Fluid pH 1 Gastric Occult Blood Positive A (Negative) Imaging Data Radiologist's Impression: Radiology results as stated below per my review and the radiologist's interpretation: CT SCAN OF THE ABDOMEN AND PELVIS WITH IV CONTRAST CLINICAL HISTORY: Vomiting. COMPARISON STUDY: Prior abdominal CT scans, most recently dated 10/29/2018. TECHNIQUE: Following the IV administration of 94 cc of Optiray 320, CT scan of the abdomen and pelvis is performed from the lung bases to the proximal femora. Images are reviewed in the axial, sagittal, and coronal planes. IV contrast was administered without complication. Enteric contrast was attempted but the patient vomiting.. A dose lowering technique was utilized adhering to the principles of ALARA. CT DOSE: 258.32 mGy.cm FINDINGS: Lung bases: The heart is top normal in size and there is a small pericardial effusion. The lung bases are clear. There is a small hiatal hernia. Liver: The contrast-enhanced liver is normal in size, contour, and attenuation. There is no intrahepatic biliary ductal dilatation. The hepatic veins and portal veins are patent. Gallbladder: Unremarkable. Spleen: Normal in size and attenuation. Pancreas: Unremarkable. Adrenal glands: Unremarkable. Kidneys: The contrast enhanced kidneys are normal in size and without hydronephrosis. The kidneys enhance symmetrically. There is a 6 mm nonobstructing calculus in the lower pole of the right kidney. There are 2 cortical hypodensities in the left kidney. These likely represent cysts but are too small for definitive characterization, and are similar to previous. Abdominal vasculature: The abdominal aorta is normal in course and caliber noting mild atherosclerotic calcification. Bowel: Fecal retention is noted in the rectosigmoid colon. There is mild diffuse colonic wall thickening and edema with pericolonic infiltration. The appearance suggests a nonspecific proctocolitis. No bowel obstruction is seen. The appendix is not identified and reported surgically absent Peritoneum: There is no intraperitoneal free air or abdominal ascites. Lymphadenopathy: None. Pelvic viscera: The prostate gland is mildly enlarged and heterogeneous. The bladder wall is thickened and hyperemic and there is pericystic stranding. Calci fication of the penile tunica suggests Peyronie's disease. Skeletal structures: The skeletal structures are osteopenic. There are chronic compression deformities of T11 and T12. A bone island is noted in the right iliac wing. No lytic or blastic lesions are seen. IMPRESSION: 1. Findings are consistent with a nonspecific proctocolitis, likely on an infectious or inflammatory basis in this age group. Clinical correlation will be required. 2. There is fecal retention in the rectosigmoid colon. 3. Right-sided nephrolithiasis. 4. The bladder wall appears thickened and hyperemic and there is pericystic inflammation. Correlate clinically and with urinalysis for evidence of cystitis. 5. Pericardial effusion. 6. Additional findings as above. Electronically signed by: Dev Burden M.D. 12/19/2018 9:41 PM Blood Pressure Blood Pressure Findings: Elevated blood pressure Blood Pressure Disposition: further management by hospitalist DAVID Narrative Patient is a 48-year-old male with PMHx CHF, ESRD, gastroparesis, HTN, diabetes, and anemia who presents the ER for persistent nausea and vomiting. He does have a history of gastroparesis as well. He was found to be hypoglycemic and had his insulin pump in place. Insulin pump was placed on hold. He was given an amp of D50 has BSG was 50. Emesis is coffee grounds and was Hemoccult positive. He was hypertensive with systolic blood pressures in the 190s. Takes no blood thinners. IV was established blood work shows a mild leukocytosis with 13,000. No significant anemia. BMP with mild hypokalemia 3.1. Creatinine was elevated at 5.6. Glucose was slightly elevated at 162 status post amputee 50. T bili a nd LFTs were normal. CT abdomen pelvis shows no acute pathology. Patient was given small bolus of IV fluids. Patient was also given IV famotidine. Updated bedside. Patient was given multiple doses of Compazine and Zofran. Patient family were updated bedside. Discussed with the hospitalist and will be observed. Impression & Plan Chronic kidney disease, HTN (hypertension), Hematemesis Discharge Plan Visit Data *Final* Discharge Date/Time: 12/19/18 23:48 Chief Complaint: Hypoglycemia Stated Complaint: VOMITING,BLOOD SUGAR DROPPING ED Provider: Obie Lancaster Discharge Problem: Chronic kidney disease, HTN (hypertension), Hematemesis Patient Disposition: Admitted As Inpatient Discharge Instructions Interventions: ED Discharge Assessment Last Done: 12/19/18 23:48 The scribe's documentation has been prepared under my direction and personally reviewed by me in its entirety. I confirm that the note above accurately reflects all work, treatment, procedures, and medical decision making performed by me.
[2018-12-20 06:44] LABS: Basophils # (auto) 0.01 K/uL (0-0.2); Basophils % (auto) 0.1 %; Hematocrit (blood only) 36.1 % (42-52); Hemoglobin 11.6 g/dL (14.0-18.0); Immature Granulocytes # (auto) 0.05 K/uL (0.00-0.02); Immature Granulocytes % (auto) 0.4 %; Lymphocytes # (auto) 0.63 K/uL (1.2-3.4); Lymphocytes % (auto) 5.3 %; Mean Corpuscular Hgb Conc 32.1 g/dL (32-36); Mean Corpuscular Volume 92.3 fL (80-100); Mean Platelet Volume 9.1 fL (7.4-10.4); Monocytes # (auto) 0.62 K/uL (0.11-0.59); Monocytes % (auto) 5.2 %; Neutrophils # (auto) 10.68 K/uL (1.4-6.5); Platelet Count 312 K/uL (130-400); RDW Coefficient of Variation 14.3 % (11.5-14.5); RDW Standard Deviation 47.6 fL (36.4-46.3); Red Blood Count 3.91 M/uL (4.7-6.1); White Blood Count 11.99 K/uL (4.8-10.8)
[2018-12-20 07:26] LABS: Albumin Globulin Ratio 1.1 (0.9-2); Albumin Level 3.5 gm/dl (3.4-5.0); BUN Creatinine Ratio 9.9 (10-20); Bilirubin,Total 0.4 mg/dl (0.2-1); Calcium 8.4 mg/dl (8.5-10.1); Creatinine Clr Calc Pharmacy 12.5 ml/min; Est GFR (African American) 11.4; Est GFR (Non-African American) 9.9; Globulin 3.2 gm/dl (2.5-4.0); Potassium 3.7 mmol/L (3.5-5.1); Total Protein 6.7 gm/dl (6.4-8.2)
[2018-12-20] MEDS ORDERED: INSULIN ASPART 100 UNITS/ML 3 ML PEN SC SCH ×2 (07:30→11:30)
[2018-12-20 07:42] LABS: Beta-Hydroxybutyrate 23.23 mg/dl (0.2-2.81)
[2018-12-20 07:52] LABS: Estimated Average Glucose 143 mg/dl; Hemoglobin A1C 6.6 % (4.5-5.6)
[2018-12-20] MEDS ORDERED: SODIUM CHLORIDE 0.9% 1000ML 1,000 ML IV PRN (08:33)
[2018-12-20] MEDS ORDERED: HEPARIN SOD (PORCINE) 1000 UNIT/ML 10 ML VIAL IV ONE (08:33)
--- NOTE | 2018-12-20 08:33 | Nephrology Consultation ---
Date of Consultation December 20, 2018 Assessment & Plan (1) End-stage renal disease on hemodialysis: for routine HD today; 4 hr tx, 3 K bath; given HTN and NPO status and first tx of week, will be aggressive w/ fluid removal as tolerated up to 2.5L; next HD on 12/22 or as clinical status dictates Present on Admission?: Yes (2) Hypoglycemia due to type 1 diabetes mellitus: per primary service; currently ordered D51/2 NS at 80 mL/hr; D5W would have less effect on volume status and recommend this if fluid must be continued instead of current fluid<<IVF now stopped when I saw pt at 11 AM and agree w/ that; BG this am in 300-400 range Present on Admission?: Yes (3) Nausea and vomiting: per primary service (4) Anemia due to end stage renal disease: hgb 11.5; no indication for FLOR or Fe therapy currently Present on Admission?: Yes (5) HTN (hypertension): SBP in 170-180 range since admission; at least some situational component most likely. takes max dose amlodipine as OP, currently on hold d/t NPO status and w/ no other meds for HTN currently. if sbp same range post tx and pt still NPO, consider prn hydralazine q4 h 10 mg IV Present on Admission?: Yes History of Present Illness Reason for Consultation: ESRD on HD Requesting Physician: Dr Guajardo Attending Physician: Colton Guajardo MD History of Present Illness 48 y/o M w/ ESRD on HD MWF and DM1 admitted overnight with N/V/acute on chronic abdominal pain. I am asked to see him for dialysis needs; he dialyzes under my care at [facility] on MWF via [facility]. He had a CT scan w/ IV contrast in ER of abdomen showing nonspecific proctocolitis, infectious versus inflammatory likeliest cause. Also some clinical impression from admitting team that n/v multifactorial from gastroparesis as much potentially as anxiety from family not being home. He had low BG in ER ON and was started on D5W at 80 mL/hr but this has since been turned off; his insulin pump was stopped. he is NPO for now. Remains w/ significant N x 72 hrs approx; also w/ some diarrhea. no f/c; no abd pain specifically at this time. he has schedule for 01/04 AVF placement. Allergies Allergy/AdvReac Type Severity Reaction Status Date / Time shellfish derived Allergy Severe anaphylaxis Verified 12/19/18 19:59 codeine Allergy Intermediate Hives Verified 12/19/18 19:59 promethazine Allergy Intermediate itchy/hives Verified 12/19/18 19:59 Home Medications Home Medications Medication Instructions Recorded Confirmed Type Humalog U-100 Insulin 1 sliding scale dose SUBCUT CONT 09/10/18 12/19/18 History atorvastatin 10 mg PO DAILY 09/10/18 12/19/18 History cholecalciferol (vitamin D3) 2,000 units PO QAM 09/10/18 12/19/18 History [Vitamin D3] sertraline 150 mg PO DAILY #60 tab 11/03/18 12/19/18 Rx B complex with C#20-folic acid 1 cap PO DAILY 12/19/18 12/19/18 History [[place] Caps] amlodipine 10 mg PO QAM 12/19/18 12/19/18 History calcium acetate See Rx Instructions .ROUTE 12/19/18 12/19/18 History .COMPLEX MDD 7 CAPSULES/DAY erythromycin See Rx Instructions .ROUTE .COMPLEX 12/19/18 12/19/18 History metoclopramide HCl 5 mg PO BID 12/19/18 12/19/18 History Patient History Medical History Acid reflux (Chronic) Hypertension (Chronic) Type I diabetes mellitus (Chronic) Gastroparesis due to DM (Chronic) Depression (Chronic) Anemia (Chronic) Diabetic nephropathy (Chronic) CKD stage 3 due to type 1 diabetes mellitus (Chronic) Anxiety (Chronic) Surgical History History of appendectomy (Resolved) H/O shoulder surgery (Resolved) History of hip surgery (Resolved) Family History Grandfather Myocardial infarction Social History Preferred Language: French Communication Ability: Effective Senior Clinical Data Analyst Required: No Beliefs That Will Affect Care: None marital status: Legally Current Living Situation: Parent current occupational status: employed Other Information That Helps Us Care for You: No Feels Safe at Home: Yes Safety Concerns: Feels Safe At This Time Smoking Status: Never smoker Tobacco Type: smokeless tobacco Do You Dip or Chew Tobacco: No Second Hand Exposure: No Tobacco Cessation Education Requested by Patient: No Hx Alcohol Use: No Hx Substance Use: No Review of Systems Review of Systems: All systems reviewed & are unremarkable except as noted in HPI & below Cardiovascular: no chest pain, no palpitations and no edema Gastrointestinal: as per Subjective / HPI, + nausea and + vomiting Genitourinary: + problem reported (no change in chronic voiding habits) Integumentary: no rash and no non-healing lesions Neurologic: + generalized weakness; no localized weakness and no confusion Psychiatric: + anxiety Physical Exam Constitutional: well developed, well nourished and + acute distress lying flat on RA, mild distress from N Eyes: EOM intact bilaterally ENMT: Ears: no external ear abnormality Nose: no external nose abnormality Mouth: + dry oral mucous membranes Neck: no nuchal rigidity Respiratory: normal respiratory effort Auscultation: + diminished lung sounds Cardiovascular: Rate/Rhythm: regular rate and regular rhythm Extremities: no edema Gastrointestinal (Abdomen): Inspection/Auscultation: normal bowel sounds Percussion/Palpation: + abdomen tender (epigastric to moderate palpation) and abdomen soft Musculoskeletal: Extremities: strength 5/5 throughout Skin: no rashes, warm and dry + pallor Neurologic: spicer, fluent speech, no tremor Psychiatric: Orientation: alert and oriented x 3 Eye Contact: good eye contact Speech: normal rate/rhythm/volume of speech Affect: + depressed af fect Genitourinary: no parker Results & Data Vital Signs (Past 12 Hours) Vital Signs Temp Pulse Pulse Resp BP BP Pulse Ox 12/20/18 07:35 36.8 C 92 H 18 181/101 H 98 12/20/18 04:13 37.0 C 92 H 17 187/104 H 97 12/20/18 02:17 191/107 H 12/19/18 23:48 91 H 14 200/113 H 96 12/19/18 23:35 36.6 C 93 H 20 195/106 H 99 12/19/18 23:05 93 H 17 189/105 H 98 12/19/18 22:01 92 H 13 12/19/18 22:00 93 H 9 L 190/107 H 12/19/18 21:01 93 H 15 12/19/18 21:00 92 H 14 191/99 H 0714/19 20:58 93 H 19 180/98 H Laboratory Results Abnormal lab results 12/19/18 12/19/18 12/19/18 Range/Units 19:10 19:10 19:12 WBC 13.29 H (4.8-10.8) K/uL RBC 4.16 L (4.7-6.1) M/uL Hgb 12.5 L (14.0-18.0) g/dL Hct 37.4 L (42-52) % RDW Std Deviation (36.4-46.3) fL Immature Gran # (Auto) 0.05 H (0.00-0.02) K/uL Neut # (Auto) 10.64 H (1.4-6.5) K/uL Lymph # (Auto) (1.2-3.4) K/uL [place] # (Auto) 1.01 H (0.11-0.59) K/uL Sodium (136-145) mmol/L Potassium 3.1 L (3.5-5.1) mmol/L Chloride (98-107) mmol/L Anion Gap 13.0 H (3-11) BUN 57 H (7-18) mg/dl Creatinine 5.99 H* (0.6-1.4) mg/dl BUN/Creatinine Ratio 9.4 L (10-20) Glucose 58 L (70-99) mg/dl POC Glucose 55 L* (70-99) Hemoglobin A1c (4.5-5.6) % Calcium (8.5-10.1) mg/dl Alkaline Phosphatase 127 H (45-117) U/L Beta-Hydroxybutyric Acd (0.2-2.81) mg/dl Gastric Occult Blood (Negative) 12/19/18 12/19/18 12/19/18 Range/Units 19:40 20:14 22:53 WBC (4.8-10.8) K/uL RBC (4.7-6.1) M/uL Hgb (14.0-18.0) g/dL Hct (42-52) % RDW Std Deviation (36.4-46.3) fL Immature Gran # (Auto) (0.00-0.02) K/uL Neut # (Auto) (1.4-6.5) K/uL Lymph # (Auto) (1.2-3.4) K/uL [place] # (Auto) (0.11-0.59) K/uL Sodium (136-145) mmol/L Potassium (3.5-5.1) mmol/L Chloride (98-107) mmol/L Anion Gap (3-11) BUN (7-18) mg/dl Creatinine (0.6-1.4) mg/dl BUN/Creatinine Ratio (10-20) Glucose (70-99) mg/dl POC Glucose 152 H 168 H (70-99) Hemoglobin A1c (4.5-5.6) % Calcium (8.5-10.1) mg/dl Alkaline Phosphatase (45-117) U/L Beta-Hydroxybutyric Acd (0.2-2.81) mg/dl Gastric Occult Blood Positive A (Negative) 12/20/18 12/20/18 12/20/18 Range/Units 00:12 05:48 06:28 WBC 11.99 H (4.8-10.8) K/uL RBC 3.91 L (4.7-6.1) M/uL Hgb 11.6 L (14.0-18.0) g/dL Hct 36.1 L (42-52) % RDW Std Deviation 47.6 H (36.4-46.3) fL Immature Gran # (Auto) 0.05 H (0.00-0.02) K/uL Neut # (Auto) 10.68 H (1.4-6.5) K/uL Lymph # (Auto) 0.63 L (1.2-3.4) K/uL [place] # (Auto) 0.62 H (0.11-0.59) K/uL Sodium (136-145) mmol/L Potassium (3.5-5.1) mmol/L Chloride (98-107) mmol/L Anion Gap (3-11) BUN (7-18) mg/dl Creatinine (0.6-1.4) mg/dl BUN/Creatinine Ratio (10-20) Glucose (70-99) mg/dl POC Glucose 162 H 389 H* (70-99) Hemoglobin A1c (4.5-5.6) % Calcium (8.5-10.1) mg/dl Alkaline Phosphatase (45-117) U/L Beta-Hydroxybutyric Acd (0.2-2.81) mg/dl Gastric Occult Blood (Negative) 12/20/18 12/20/18 12/20/18 Range/Units 06:28 06:28 08:10 WBC (4.8-10.8) K/uL RBC (4.7-6.1) M/uL Hgb (14.0-18.0) g/dL Hct (42-52) % RDW Std Deviation (36.4-46.3) fL Immature Gran # (Auto) (0.00-0.02) K/uL Neut # (Auto) (1.4-6.5) K/uL Lymph # (Auto) (1.2-3.4) K/uL [place] # (Auto) (0.11-0.59) K/uL Sodium 132 L (136-145) mmol/L Potassium (3.5-5.1) mmol/L Chloride 97 L (98-107) mmol/L Anion Gap 13.0 H (3-11) BUN 61 H (7-18) mg/dl Creatinine 6.14 H* (0.6-1.4) mg/dl BUN/Creatinine Ratio 9.9 L (10-20) Glucose 461 H* (70-99) mg/dl POC Glucose 375 H* (70-99) Hemoglobin A1c 6.6 H (4.5-5.6) % Calcium 8.4 L (8.5-10.1) mg/dl Alkaline Phosphatase (45-117) U/L Beta-Hydroxybutyric Acd 23.23 H (0.2-2.81) mg/dl Gastric Occult Blood (Negative) Diagnostic Findings CT abd/pelvis w/ IV Lung bases: The heart is top normal in size and there is a small pericardial effusion. The lung bases are clear. There is a small hiatal hernia. Liver: The contrast-enhanced liver is normal in size, contour, and attenuation. There is no intrahepatic biliary ductal dilatation. The hepatic veins and portal veins are patent. Gallbladder: Unremarkable. Spleen: Normal in size and attenuation. Pancreas: Unremarkable. Adrenal glands: Unremarkable. Kidneys: The contrast enhanced kidneys are normal in size and without hydronephrosis. The kidneys enhance symmetrically. There is a 6 mm nonobstructing calculus in the lower pole of the right kidney. There are 2 cortical hypodensities in the left kidney. These likely represent cysts but are too small for definitive characterization, and are similar to previous. Abdominal vasculature: The abdominal aorta is normal in course and caliber noting mild atherosclerotic calcification. Bowel: Fecal retention is noted in the rectosigmoid colon. There is mild diffuse colonic wall thickening and edema with pericolonic infiltration. The appearance suggests a nonspecific proctocolitis. No bowel obstruction is seen. The appendix is not identified and reported surgically absent Peritoneum: There is no intraperitoneal free air or abdominal ascites. Lymphadenopathy: None. Pelvic viscera: The prostate gland is mildly enlarged and heterogeneous. The bladder wall is thickened and hyperemic and there is pericystic stranding. Calcification of the penile tunica suggests Peyronie's disease. Skeletal structures: The skeletal structures are osteopenic. There are chronic compression deformities of T11 and T12. A bone island is noted in the right iliac wing. No lytic or blastic lesions are seen. IMPRESSION: 1. Findings are consistent with a nonspecific proctocolitis, likely on an infectious or inflammatory basis in this age group. Clinical correlation will be required. 2. There is fecal retention in the rectosigmoid colon. 3. Right-sided nephrolithiasis. 4. The bladder wall appears thickened and hyperemic and there is pericystic inflammation. Correlate clinically and with urinalysis for evidence of cystitis. 5. Pericardial effusion. (1) Nausea and vomiting Vomiting Intractability: intractable Vomiting type: unspecified Qualified Code(s): R11.2 - Nausea with vomiting, unspecified (2) HTN (hypertension) Hypertension type: essential hypertension Qualified Code(s): I10 - Essential (primary) hypertension
[2018-12-20] MEDS ORDERED: MODERATE STRESS LEVEL ONE (08:34)
[2018-12-20] MEDS ORDERED: INSULIN PROTOCOL GOAL RANGE ONE (08:34)
[2018-12-20] MEDS ORDERED: DC ALL PREVIOUSLY ORDERED DIABETES MEDS ONE (08:34)
[2018-12-20] MEDS: FAMOTIDINE 20 MG in SYRINGE 3 ML IV SCH ×2 (08:37→21:01)
[2018-12-20] MEDS ORDERED: INSULIN HUMAN REGULAR IV BOLUS 1.5 UNITS in SYRINGE 0 ML IV ONE (09:30)
[2018-12-20] MEDS: INSULIN REGULAR 250 UNITS in SODIUM CHLORIDE 0.9% 247.5 ML IV SCH (10:02)
[2018-12-20] MEDS: METOPROLOL TARTRATE 1 MG/ML VIAL IV SCH ×4 (11:04→23:50)
[2018-12-20] MEDS: INSULIN ASPART 100 UNITS/ML 3 ML PEN SC SCH ×3 (13:12→20:55)
[2018-12-20] MEDS: METOCLOPRAMIDE HCL INJ 5 MG/ML 2 ML VIAL IV SCH ×2 (14:07→20:53)
[2018-12-20] MEDS ORDERED: PHARMACY GLYCEMIC MGMT CONSULT PRN (21:26)
--- NOTE | 2018-12-21 00:59 | Hospitalist Progress Note ---
Date of Service December 20, 2018 Assessment & Plan (1) Nausea and vomiting: The patient had numerous episodes of this during his prior hospitalization. Some of it was felt to be due to gastroparesis, some due to infection (pyelonephritis, UTI), and some due to anxiety. He had poor response to all anti-emetics but compazine worked best. He had nausea/emesis with use of erythromycin. No evidence of DKA on labs today despite hyperglycemia. CT abd/pelvis with ?proctocolitis but not having pain to suggest such and not having active diarrhea. Rectal exam without evidence of proctitis. In light of previous UTI during last hospital stay and given CT findings of bladder will check u/a and urine cx to r/o recurrent UTI. Since vomiting has stopped will start clear liquid diet and advance as tolerated. Cont H2 deidre. (2) Diabetes mellitus type 1, with complication, on senior living insulin pump: Insulin pump on hold. Had hypoglycemia at time of admission but now he is considerably hyperglycemic. During his prior hospital stay we employed an insulin infusion during times of poor oral intake and fluctuating sugars. Thus, will start insulin infusion now. Stop the dextrose-containing fluids. (3) Hypoglycemia due to type 1 diabetes mellitus: See above. Resolved. (4) End-stage renal disease on hemodialysis: Appreciate [facility] consultation. Typical HD schedule M/W/. Volume status - euvolemic or slightly on dry side. (5) Anxiety with depression: Resume zoloft in am if keeping liquids down. (6) HTN (hypertension): uncontrolled. Since po intake not reliable yet will start metoprolol 5mg IV q6h. (7) Gastroparesis: Resume reglan; schedule 5mg TID. Compazine or zofran prn for refractory nausea/vomiting. Of note - patient had normal head imaging during prior hospitalization. Subjective patient with less nausea today. last episode of vomiting was previous evening. occasional dry heaves. no abd pain. had 2 episodes of diarrhea at home - now resolved. no rectal pain or pain with defecation. states he had been feeling well following his last hospital stay and only got sick on day of admission yesterday. has been seeing psych in [place]. Review of Systems Constitutional: no fever and no chills Respiratory: no cough and no dyspnea Cardiovascular: no chest pain Gastrointestinal: no abdominal pain Genitourinary: + problem reported (makes urine 1-2 times each day); no dysuria Physical Exam Constitutional: + acute distress (had brief episode of dry heaves then it resolved) and + thin; no altered mental status ENMT: Mouth: + dry oral mucous membranes Respiratory: normal respiratory effort, lungs clear to auscultation Cardiovascular: Rate/Rhythm: regular rate and regular rhythm Heart Sounds: normal S1 and normal S2; no murmur Vessels: posterior tibial pulses present and dorsalis pedis pulses present; no JVD Gastrointestinal (Abdomen): normal bowel sounds, soft, nontender, no hepatosplenomegaly Rectal Exam: normal visual inspection of rectum; normal sphincter tone, no rectal mass, no hemorrhoids, no fecal impaction, no rectal tenderness, no rectal fissure and no rectal lesions prostate enlarged but no tenderness, not boggy, no nodules Skin: permcath, right upper chest, with no erythema or drainage Psychiatric: Orientation: alert and oriented x 3 Affect: + flat affect Results & Data Vital Signs (Past 12 Hours) Vital Signs Temp Pulse Pulse Resp BP BP Pulse Ox 12/21/18 00:00 36.8 C 76 17 170/104 H 95 12/20/18 23:50 72 168/90 H 12/20/18 19:31 37.2 C 78 18 170/97 H 94 12/20/18 17:21 88 166/104 H 12/20/18 15:46 86 12/20/18 15:00 37.2 C 84 22 165/106 H 94 Laboratory Results Laboratory Results - last 24 hr 12/20/18 12/20/18 12/20/18 01:28 05:48 06:28 WBC 11.99 H RBC 3.91 L Hgb 11.6 L Hct 36.1 L MCV 92.3 MCH 29.7 MCHC 32.1 RDW Std Deviation 47.6 H RDW Coeff of Kami 14.3 Plt Count 312 MPV 9.1 Immature Gran % (Auto) 0.4 Neut % (Auto) 89.0 Lymph % (Auto) 5.3 [place] % (Auto) 5.2 Eos % (Auto) 0.0 Baso % (Auto) 0.1 Immature Gran # (Auto) 0.05 H Neut # (Auto) 10.68 H Lymph # (Auto) 0.63 L [place] # (Auto) 0.62 H Eos # (Auto) 0.00 Baso # (Auto) 0.01 Sodium Potassium Chloride Carbon Dioxide Anion Gap BUN Creatinine Est Cr Clr Drug Dosing Est GFR ( Amer) Est GFR (Non-Af Amer) BUN/Creatinine Ratio Glucose POC Glucose 389 H* Estimat Average Glucose Hemoglobin A1c Calcium Total Bilirubin AST ALT Alkaline Phosphatase Total Protein Albumin Globulin Albumin/Globulin Ratio Beta-Hydroxybutyric Acd Nasal Screen MRSA (PCR) Negative 12/20/18 12/20/18 12/20/18 06:28 06:28 08:10 WBC RBC Hgb Hct MCV MCH MCHC RDW Std Deviation RDW Coeff of Kami Plt Count MPV Immature Gran % (Auto) Neut % (Auto) Lymph % (Auto) [place] % (Auto) Eos % (Auto) Baso % (Auto) Immature Gran # (Auto) Neut # (Auto) Lymph # (Auto) [place] # (Auto) Eos # (Auto) Baso # (Auto) Sodium 132 L Potassium 3.7 D Chloride 97 L Carbon Dioxide 22 Anion Gap 13.0 H BUN 61 H Creatinine 6.14 H* Est Cr Clr Drug Dosing 12.5 Est GFR ( Amer) 11.4 Est GFR (Non-Af Amer) 9.9 BUN/Creatinine Ratio 9.9 L Glucose 461 H* POC Glucose 375 H* Estimat Average Glucose 143 Hemoglobin A1c 6.6 H Calcium 8.4 L Total Bilirubin 0.4 AST 15 ALT 19 Alkaline Phosphatase 113 Total Protein 6.7 Albumin 3.5 Globulin 3.2 Albumin/Globulin Ratio 1.1 Beta-Hydroxybutyric Acd 23.23 H Nasal Screen MRSA (PCR) 12/20/18 12/20/18 12/20/18 10:03 11:01 12:03 WBC RBC Hgb Hct MCV MCH MCHC RDW Std Deviation RDW Coeff of Kami Plt Count MPV Immature Gran % (Auto) Neut % (Auto) Lymph % (Auto) [place] % (Auto) Eos % (Auto) Baso % (Auto) Immature Gran # (Auto) Neut # (Auto) Lymph # (Auto) [place] # (Auto) Eos # (Auto) Baso # (Auto) Sodium Potassium Chloride Carbon Dioxide Anion Gap BUN Creatinine Est Cr Clr Drug Dosing Est GFR ( Amer) Est GFR (Non-Af Amer) BUN/Creatinine Ratio Glucose POC Glucose 352 H* 335 H* 296 H Estimat Average Glucose Hemoglobin A1c Calcium Total Bilirubin AST ALT Alkaline Phosphatase Total Protein Albumin Globulin Albumin/Globulin Ratio Beta-Hydroxybutyric Acd Nasal Screen MRSA (PCR) 12/20/18 12/20/18 12/20/18 12:58 14:00 14:58 WBC RBC Hgb Hct MCV MCH MCHC RDW Std Deviation RDW Coeff of Kami Plt Count MPV Immature Gran % (Auto) Neut % (Auto) Lymph % (Auto) [place] % (Auto) Eos % (Auto) Baso % (Auto) Immature Gran # (Auto) Neut # (Auto) Lymph # (Auto) [place] # (Auto) Eos # (Auto) Baso # (Auto) Sodium Potassium Chloride Carbon Dioxide Anion Gap BUN Creatinine Est Cr Clr Drug Dosing Est GFR ( Amer) Est GFR (Non-Af Amer) BUN/Creatinine Ratio Glucose POC Glucose 258 H 222 H 187 H Estimat Average Glucose Hemoglobin A1c Calcium Total Bilirubin AST ALT Alkaline Phosphatase Total Protein Albumin Globulin Albumin/Globulin Ratio Beta-Hydroxybutyric Acd Nasal Screen MRSA (PCR) 12/20/18 12/20/18 12/20/18 17:01 18:06 18:35 WBC RBC Hgb Hct MCV MCH MCHC RDW Std Deviation RDW Coeff of Kami Plt Count MPV Immature Gran % (Auto) Neut % (Auto) Lymph % (Auto) [place] % (Auto) Eos % (Auto) Baso % (Auto) Immature Gran # (Auto) Neut # (Auto) Lymph # (Auto) [place] # (Auto) Eos # (Auto) Baso # (Auto) Sodium Potassium Chloride Carbon Dioxide Anion Gap BUN Creatinine Est Cr Clr Drug Dosing Est GFR ( Amer) Est GFR (Non-Af Amer) BUN/Creatinine Ratio Glucose POC Glucose 114 H 79 163 H Estimat Average Glucose Hemoglobin A1c Calcium Total Bilirubin AST ALT Alkaline Phosphatase Total Protein Albumin Globulin Albumin/Globulin Ratio Beta-Hydroxybutyric Acd Nasal Screen MRSA (PCR) 12/20/18 12/20/18 12/20/18 19:41 20:41 21:39 WBC RBC Hgb Hct MCV MCH MCHC RDW Std Deviation RDW Coeff of Kami Plt Count MPV Immature Gran % (Auto) Neut % (Auto) Lymph % (Auto) [place] % (Auto) Eos % (Auto) Baso % (Auto) Immature Gran # (Auto) Neut # (Auto) Lymph # (Auto) [place] # (Auto) Eos # (Auto) Baso # (Auto) Sodium Potassium Chloride Carbon Dioxide Anion Gap BUN Creatinine Est Cr Clr Drug Dosing Est GFR ( Amer) Est GFR (Non-Af Amer) BUN/Creatinine Ratio Glucose POC Glucose 172 H 133 H 179 H Estimat Average Glucose Hemoglobin A1c Calcium Total Bilirubin AST ALT Alkaline Phosphatase Total Protein Albumin Globulin Albumin/Globulin Ratio Beta-Hydroxybutyric Acd Nasal Screen MRSA (PCR) 12/20/18 12/20/18 12/21/18 22:45 23:47 00:46 WBC RBC Hgb Hct MCV MCH MCHC RDW Std Deviation RDW Coeff of Kami Plt Count MPV Immature Gran % (Auto) Neut % (Auto) Lymph % (Auto) [place] % (Auto) Eos % (Auto) Baso % (Auto) Immature Gran # (Auto) Neut # (Auto) Lymph # (Auto) [place] # (Auto) Eos # (Auto) Baso # (Auto) Sodium Potassium Chloride Carbon Dioxide Anion Gap BUN Creatinine Est Cr Clr Drug Dosing Est GFR ( Amer) Est GFR (Non-Af Amer) BUN/Creatinine Ratio Glucose POC Glucose 126 H 136 H 119 H Estimat Average Glucose Hemoglobin A1c Calcium Total Bilirubin AST ALT Alkaline Phosphatase Total Protein Albumin Globulin Albumin/Globulin Ratio Beta-Hydroxybutyric Acd Nasal Screen MRSA (PCR) PG Care Time/CCT Total # of Minutes Spent Total Time Spent with Patient: Total time spent is greater than 50% in coordination of care (as documented) at patient's floor/unit and/or counseling patient: (1) Nausea and vomiting Vomiting type: unspecified Vomiting Intractability: intractable Qualified Code(s): R11.2 - Nausea with vomiting, unspecified (2) HTN (hypertension) Hypertension type: essential hypertension Qualified Code(s): I10 - Essential (primary) hypertension
[2018-12-21] MEDS: METOPROLOL TARTRATE 1 MG/ML VIAL IV SCH ×2 (05:40→11:12)
[2018-12-21 05:46] LABS: Basophils # (auto) 0.06 K/uL (0-0.2); Basophils % (auto) 0.4 %; Eosinophils # (auto) 0.13 K/uL (0-0.5); Eosinophils % (auto) 0.9 %; Hematocrit (blood only) 35.4 % (42-52); Hemoglobin 11.6 g/dL (14.0-18.0); Immature Granulocytes # (auto) 0.08 K/uL (0.00-0.02); Immature Granulocytes % (auto) 0.5 %; Lymphocytes # (auto) 2.25 K/uL (1.2-3.4); Lymphocytes % (auto) 15.2 %; Mean Corpuscular Hgb Conc 32.8 g/dL (32-36); Mean Corpuscular Volume 92.9 fL (80-100); Mean Platelet Volume 8.9 fL (7.4-10.4); Monocytes # (auto) 1.46 K/uL (0.11-0.59); Monocytes % (auto) 9.9 %; Neutrophils % (auto) 73.1 %; Platelet Count 237 K/uL (130-400); RDW Coefficient of Variation 14.6 % (11.5-14.5); RDW Standard Deviation 48.4 fL (36.4-46.3); Red Blood Count 3.81 M/uL (4.7-6.1); White Blood Count 14.78 K/uL (4.8-10.8)
[2018-12-21] MEDS: HEPARIN SOD (PORCINE) 1000 UNIT/ML 10 ML VIAL IV SCH ×2 (06:30→06:31)
[2018-12-21 06:36] LABS: Albumin Level 3.2 gm/dl (3.4-5.0); Bilirubin,Total 0.3 mg/dl (0.2-1); Calcium 7.9 mg/dl (8.5-10.1); Creatinine Clr Calc Pharmacy 14.6 ml/min; Est GFR (Non-African American) 12.1; Globulin 3.2 gm/dl (2.5-4.0); Potassium 3.5 mmol/L (3.5-5.1); Total Protein 6.4 gm/dl (6.4-8.2)
[2018-12-21] MEDS: METOCLOPRAMIDE HCL INJ 5 MG/ML 2 ML VIAL IV SCH ×2 (07:48→12:55)
[2018-12-21] MEDS: INSULIN ASPART 100 UNITS/ML 3 ML PEN SC SCH ×3 (07:48→20:51)
[2018-12-21] MEDS: FAMOTIDINE 20 MG in SYRINGE 3 ML IV SCH (07:49)
[2018-12-21] MEDS ORDERED: INSULIN GLARGINE SOLOSTAR 100 UNITS/ML 3 ML PEN SC SCH (09:00)
[2018-12-21] MEDS: INSULIN REGULAR 250 UNITS in SODIUM CHLORIDE 0.9% 247.5 ML IV SCH (11:26)
[2018-12-21] MEDS ORDERED: INSULIN ASPART 100 UNITS/ML 3 ML PEN SC SCH (11:30)
[2018-12-21] MEDS ORDERED: INSULIN GLARGINE SOLOSTAR 100 UNITS/ML 3 ML PEN SC ONE (12:15)
--- NOTE | 2018-12-21 13:37 | Pharmacy Report ---
Glycemic Control Consultation - Date of Service December 21, 2018 - Scope Scope: Glycemic Pharmacist consulted for glycemic control and to write orders per [facility] inpatient glycemic control protocol - Objective Weight: 59.6 kg Accuchecks BSG (last 24hrs): 12/20/18 12/20/18 12/20/18 12:58 14:00 14:58 Glucose POC Glucose 258 H 222 H 187 H 12/20/18 12/20/18 12/20/18 17:01 18:06 18:35 Glucose POC Glucose 114 H 79 163 H 12/20/18 12/20/18 12/20/18 19:41 20:41 21:39 Glucose POC Glucose 172 H 133 H 179 H 12/20/18 12/20/18 12/21/18 22:45 23:47 00:46 Glucose POC Glucose 126 H 136 H 119 H 12/21/18 12/21/18 12/21/18 01:52 02:43 03:44 Glucose POC Glucose 98 127 H 239 H 12/21/18 12/21/18 12/21/18 03:46 04:48 05:26 Glucose 197 H POC Glucose 226 H 207 H 12/21/18 12/21/18 12/21/18 05:49 06:38 07:32 Glucose POC Glucose 168 H 161 H 157 H 12/21/18 12/21/18 12/21/18 09:28 10:33 11:31 Glucose POC Glucose 345 H* 284 H 234 H 12/21/18 12:30 Glucose POC Glucose 223 H Laboratory Data (last 24hrs): 12/21/18 05:26 Potassium 3.5 Carbon Dioxide 26 Anion Gap 10.0 Creatinine 5.20 H* D Est Cr Clr Drug Dosing 14.6 HbA1c: Hemoglobin A1c 6.6 % (4.5-5.6) H 12/20/18 06:28 - Recent Pertinent Medications Outpatient Anti-diabetic Regimen: * Insulin pump * Basal ~ 20 units/day (with lower rate overnight noted) * Carb ratio: 7=10 g CHO/unit * Correction factor: 35 mg/dL/unit * Goal range 100-130 mg/dL * A1c = 6.6% on 12/20/18 * However, this result is likely somewhat unreliable in ESRD patients d/t interactions between the A1c analyzing technique and high levels of urea in ESRD, reduced RBC life span, iron deficiency anemia, and EPO administration. HbA1c > 7.5% in ESRD patient may overestimate the extent of hyperglycemia in ESRD patients. The patient is currently receiving: * Insulin drip @ 0.8 units/hr Risk Factors for Insulin Resistance: * Diet: T1DM - Assessment & Plan Assessment & Plan: ASSESSMENT: * 48 yo M with T1DM admitted with N/V. He is a very brittle Type 1 diabetic known to us from previous hospitalizations - significant fluctuations in BSG's are common for him. His last admission, he went on and off an insulin drip on 4 separate occasions and eventually transitioned to his home insulin pump prior to discharge * Spoke w Dr. Townsend this AM - OK to transition off of drip to basal/bolus today. Discharge later today possible, but more likely tomorrow. Plan is to start the patient back on his pump close to discharge. Dr. Townsend to discuss with patient and request that his parents bring in the necessary supplies * Lantus 10 units x1 this AM. Will add an additional 4 units x1 now based on information from previous admissions * Will resume Novolog parameters from previous recent admission, including 2 overnight checks * Stop insulin drip 6 hours after Lantus admin this AM PLAN FOR INPATIENT GLYCEMIC CONTROL: * Discontinue insulin drip @ 1500 * Basal insulin * Lantus 10 units SQ x1 this AM with additional 4 units at lunch * Bolus insulin * NovoLog per scale ACHS or Q6hrs while NPO * Goal Range: Low 120 mg/dL - High 150 mg/dL * Correction Factor: 30 mg/dL/unit * Nutritional / Prandial insulin per carb ratio of 1 unit per 10 grams CHO consumed * Please note that the plan above was derived based on current level of insulin resistance and hospital stress. These recommendations are appropriate for inpatient admission only. Plan of care upon discharge will need to be reassessed to avoid potential outpatient hypo/hyperglycemia. Thank you.
[2018-12-21 14:36] LABS: Appearance Urine Cloudy (Clear); Bacteria Urine Automated Negative (Negative); Bilirubin Urine Negative (Negative); Blood Urine Negative (Negative); Color Urine Yellow; Epithelial Cell Urine Auto >30 /lpf (0-5); Glucose Urine UA 2+ (Negative); Ketones Urine Negative (Negative); Leukocyte Esterase Urine Trace (Negative); Nitrite Urine Negative (Negative); Protein Urine 4+ (Negative); RBC Urine Automated 0-4 /hpf (0-4); Specific Gravity Urine 1.028 (1.000-1.030); Urobilinogen Urine Negative (Negative)
[2018-12-21] MEDS ORDERED: AMLODIPINE BESYLATE 5 MG TAB PO ONE (16:22)
[2018-12-21] MEDS: METOCLOPRAMIDE HCL 5 MG TABLET PO SCH (16:38)
[2018-12-21] MEDS: ONDANSETRON INJ 2 MG/ML 2 ML VIAL IV PRN (16:58)
[2018-12-21] MEDS: CARBOHYDRATES FOR HYPOGLYCEMIA PO PRN ×3 (20:45→21:25)
--- NOTE | 2018-12-21 22:45 | Hospitalist Progress Note ---
Date of Service December 21, 2018 Assessment & Plan (1) Nausea and vomiting: RESOLVED. Advance diet to T1DM/renal diet today. The patient had numerous episodes of this during his prior hospitalization. Some of it was felt to be due to gastroparesis, some due to infection (pyelonephritis, UTI), and some due to anxiety. He had poor response to all anti-emetics but compazine worked best. He had nausea/emesis with use of erythromycin. CT abd/pelvis this admission with ?proctocolitis but not having pain to suggest such and not having active diarrhea. Rectal exam without evidence of proctitis either (DAVIS performed yesterday). u/a not highly suggestive of UTI. He had been taking reglan at home BID -- I have increased this to TID w/ meals. Change IV to PO formulation. (2) Gastroparesis: Cont reglan at 5mg TID prior to meals. Change IV to PO today. Compazine or zofran prn for refractory nausea/vomiting. (3) Diabetes mellitus type 1, with complication, on tank terminal gauger insulin pump: Transition from IV insulin drip to SC regimen today. Give lantus 10 units SC x 1 this am and cover meals w/ novolog. I did not realize pharmacy had been consulted for glycemic management. I spoke with pharmacy this am and they will provide glycemic assistance including transitioning back to his pump tomorrow AM (anticipated date of d/c). Appreciate their assistance. Patient states pump IS already at the hospital. (4) Hypoglycemia due to type 1 diabetes mellitus: See above. Resolved. (5) End-stage renal disease on hemodialysis: Appreciate [facility] consultation. Typical HD schedule M/W/F. Volume status - euvolemic today. (6) Anxiety with depression: Resume zoloft. (7) HTN (hypertension): uncontrolled. Resume normal norvasc dosing. Stop IV lopressor. Consider alpha deidre for BPH; this will also help BPs. 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 He has BPH on examination. Start alpha deidre - this may help with his urine flow as he does make urine 1- 2x's daily despite ESRD status. (9) Neurogenic bladder: as above (10) DVT prophylaxis: if patient stays beyond tomorrow then start heparin 5000 BID hopefully can d/c home on Thursday Subjective feeling much better today. during AM rounds he stated he did NOT have any nausea/emesis overnight. denies any abdominal pain. finally voided 950cc x 1 on his own accord and able to send u/a. tele stable overnight. had dialysis last evening with 3000cc removed. Review of Systems Constitutional: no fever and no chills Respiratory: no cough and no dyspnea Cardiovascular: no chest pain, no orthopnea, no paroxysmal nocturnal dyspnea and no edema Gastrointestinal: no abdominal pain, no nausea, no vomiting, no diarrhea/loose stools and no blood in stools Physical Exam Constitutional: + thin; no altered mental status looks much better today ENMT: external ear and nose normal, oropharynx normal Mouth: oral mucous membranes not dry Respiratory: normal respiratory effort, lungs clear to auscultation Cardiovascular: Rate/Rhythm: regular rate and regular rhythm Heart Sounds: normal S1 and normal S2; no murmur Vessels: posterior tibial pulses present and dorsalis pedis pulses present; no JVD Gastrointestinal (Abdomen): normal bowel sounds, soft, nontender, no hepatosplenomegaly Psychiatric: Orientation: alert and oriented x 3 Affect: + flat affect Results & Data Vital Signs (Past 12 Hours) Vital Signs Temp Pulse Pulse Pulse Resp BP BP 12/21/18 20:37 36.9 C 79 19 176/105 H 12/21/18 16:24 37.3 C 75 19 169/101 H 12/21/18 11:49 36.8 C 81 16 167/99 H 12/21/18 11:12 79 167/99 H Pulse Ox 12/21/18 20:37 96 12/21/18 16:24 97 12/21/18 11:49 97 12/21/18 11:12 Laboratory Results Laboratory Results - last 24 hr 12/20/18 12/20/18 12/21/18 22:45 23:47 00:46 WBC RBC Hgb Hct MCV MCH MCHC RDW Std Deviation RDW Coeff of Kami Plt Count MPV Immature Gran % (Auto) Neut % (Auto) Lymph % (Auto) Day % (Auto) Eos % (Auto) Baso % (Auto) Immature Gran # (Auto) Neut # (Auto) Lymph # (Auto) Day # (Auto) Eos # (Auto) Baso # (Auto) Sodium Potassium Chloride Carbon Dioxide Anion Gap BUN Creatinine Est Cr Clr Drug Dosing Est GFR ( Amer) Est GFR (Non-Af Amer) BUN/Creatinine Ratio Glucose POC Glucose 126 H 136 H 119 H Calcium Total Bilirubin AST ALT Alkaline Phosphatase Total Protein Albumin Globulin Albumin/Globulin Ratio Urine Color Urine Appearance Urine pH Ur Specific [place] Urine Protein Urine Glucose (UA) Urine Ketones Urine Blood Urine Nitrite Urine Bilirubin Urine Urobilinogen Ur Leukocyte Esterase Urine WBC (Auto) Urine RBC (Auto) U Hyaline Cast (Auto) U Epithel Cells (Auto) Urine Bacteria (Auto) Ur Renal Epithelial Cell Granular Casts Waxy Casts WBC Casts 12/21/18 12/21/18 12/21/18 01:52 02:43 03:44 WBC RBC Hgb Hct MCV MCH MCHC RDW Std Deviation RDW Coeff of Kami Plt Count MPV Immature Gran % (Auto) Neut % (Auto) Lymph % (Auto) Day % (Auto) Eos % (Auto) Baso % (Auto) Immature Gran # (Auto) Neut # (Auto) Lymph # (Auto) Day # (Auto) Eos # (Auto) Baso # (Auto) Sodium Potassium Chloride Carbon Dioxide Anion Gap BUN Creatinine Est Cr Clr Drug Dosing Est GFR ( Amer) Est GFR (Non-Af Amer) BUN/Creatinine Ratio Glucose POC Glucose 98 127 H 239 H Calcium Total Bilirubin AST ALT Alkaline Phosphatase Total Protein Albumin Globulin Albumin/Globulin Ratio Urine Color Urine Appearance Urine pH Ur Specific [place] Urine Protein Urine Glucose (UA) Urine Ketones Urine Blood Urine Nitrite Urine Bilirubin Urine Urobilinogen Ur Leukocyte Esterase Urine WBC (Auto) Urine RBC (Auto) U Hyaline Cast (Auto) U Epithel Cells (Auto) Urine Bacteria (Auto) Ur Renal Epithelial Cell Granular Casts Waxy Casts WBC Casts 12/21/18 12/21/18 12/21/18 03:46 04:48 05:26 WBC 14.78 H RBC 3.81 L Hgb 11.6 L Hct 35.4 L MCV 92.9 MCH 30.4 MCHC 32.8 RDW Std Deviation 48.4 H RDW Coeff of Kami 14.6 H Plt Count 237 MPV 8.9 Immature Gran % (Auto) 0.5 Neut % (Auto) 73.1 Lymph % (Auto) 15.2 Day % (Auto) 9.9 Eos % (Auto) 0.9 Baso % (Auto) 0.4 Immature Gran # (Auto) 0.08 H Neut # (Auto) 10.80 H Lymph # (Auto) 2.25 Day # (Auto) 1.46 H Eos # (Auto) 0.13 Baso # (Auto) 0.06 Sodium Potassium Chloride Carbon Dioxide Anion Gap BUN Creatinine Est Cr Clr Drug Dosing Est GFR ( Amer) Est GFR (Non-Af Amer) BUN/Creatinine Ratio Glucose POC Glucose 226 H 207 H Calcium Total Bilirubin AST ALT Alkaline Phosphatase Total Protein Albumin Globulin Albumin/Globulin Ratio Urine Color Urine Appearance Urine pH Ur Specific [place] Urine Protein Urine Glucose (UA) Urine Ketones Urine Blood Urine Nitrite Urine Bilirubin Urine Urobilinogen Ur Leukocyte Esterase Urine WBC (Auto) Urine RBC (Auto) U Hyaline Cast (Auto) U Epithel Cells (Auto) Urine Bacteria (Auto) Ur Renal Epithelial Cell Granular Casts Waxy Casts WBC Casts 12/21/18 12/21/18 12/21/18 05:26 05:49 06:38 WBC RBC Hgb Hct MCV MCH MCHC RDW Std Deviation RDW Coeff of Kami Plt Count MPV Immature Gran % (Auto) Neut % (Auto) Lymph % (Auto) Day % (Auto) Eos % (Auto) Baso % (Auto) Immature Gran # (Auto) Neut # (Auto) Lymph # (Auto) Day # (Auto) Eos # (Auto) Baso # (Auto) Sodium 136 Potassium 3.5 Chloride 100 Carbon Dioxide 26 Anion Gap 10.0 BUN 42 H Creatinine 5.20 H* D Est Cr Clr Drug Dosing 14.6 Est GFR ( Amer) 14.0 Est GFR (Non-Af Amer) 12.1 BUN/Creatinine Ratio 8.0 L Glucose 197 H POC Glucose 168 H 161 H Calcium 7.9 L Total Bilirubin 0.3 AST 15 ALT 17 Alkaline Phosphatase 109 Total Protein 6.4 Albumin 3.2 L Globulin 3.2 Albumin/Globulin Ratio 1.0 Urine Color Urine Appearance Urine pH Ur Specific [place] Urine Protein Urine Glucose (UA) Urine Ketones Urine Blood Urine Nitrite Urine Bilirubin Urine Urobilinogen Ur Leukocyte Esterase Urine WBC (Auto) Urine RBC (Auto) U Hyaline Cast (Auto) U Epithel Cells (Auto) Urine Bacteria (Auto) Ur Renal Epithelial Cell Granular Casts Waxy Casts WBC Casts 12/21/18 12/21/18 12/21/18 07:32 09:28 10:33 WBC RBC Hgb Hct MCV MCH MCHC RDW Std Deviation RDW Coeff of Kami Plt Count MPV Immature Gran % (Auto) Neut % (Auto) Lymph % (Auto) Day % (Auto) Eos % (Auto) Baso % (Auto) Immature Gran # (Auto) Neut # (Auto) Lymph # (Auto) Day # (Auto) Eos # (Auto) Baso # (Auto) Sodium Potassium Chloride Carbon Dioxide Anion Gap BUN Creatinine Est Cr Clr Drug Dosing Est GFR ( Amer) Est GFR (Non-Af Amer) BUN/Creatinine Ratio Glucose POC Glucose 157 H 345 H* 284 H Calcium Total Bilirubin AST ALT Alkaline Phosphatase Total Protein Albumin Globulin Albumin/Globulin Ratio Urine Color Urine Appearance Urine pH Ur Specific [place] Urine Protein Urine Glucose (UA) Urine Ketones Urine Blood Urine Nitrite Urine Bilirubin Urine Urobilinogen Ur Leukocyte Esterase Urine WBC (Auto) Urine RBC (Auto) U Hyaline Cast (Auto) U Epithel Cells (Auto) Urine Bacteria (Auto) Ur Renal Epithelial Cell Granular Casts Waxy Casts WBC Casts 12/21/18 12/21/18 12/21/18 11:31 12:30 13:34 WBC RBC Hgb Hct MCV MCH MCHC RDW Std Deviation RDW Coeff of Kami Plt Count MPV Immature Gran % (Auto) Neut % (Auto) Lymph % (Auto) Day % (Auto) Eos % (Auto) Baso % (Auto) Immature Gran # (Auto) Neut # (Auto) Lymph # (Auto) Day # (Auto) Eos # (Auto) Baso # (Auto) Sodium Potassium Chloride Carbon Dioxide Anion Gap BUN Creatinine Est Cr Clr Drug Dosing Est GFR ( Amer) Est GFR (Non-Af Amer) BUN/Creatinine Ratio Glucose POC Glucose 234 H 223 H 206 H Calcium Total Bilirubin AST ALT Alkaline Phosphatase Total Protein Albumin Globulin Albumin/Globulin Ratio Urine Color Urine Appearance Urine pH Ur Specific [place] Urine Protein Urine Glucose (UA) Urine Ketones Urine Blood Urine Nitrite Urine Bilirubin Urine Urobilinogen Ur Leukocyte Esterase Urine WBC (Auto) Urine RBC (Auto) U Hyaline Cast (Auto) U Epithel Cells (Auto) Urine Bacteria (Auto) Ur Renal Epithelial Cell Granular Casts Waxy Casts WBC Casts 12/21/18 12/21/18 12/21/18 16:28 20:40 20:41 WBC RBC Hgb Hct MCV MCH MCHC RDW Std Deviation RDW Coeff of Kami Plt Count MPV Immature Gran % (Auto) Neut % (Auto) Lymph % (Auto) Day % (Auto) Eos % (Auto) Baso % (Auto) Immature Gran # (Auto) Neut # (Auto) Lymph # (Auto) Day # (Auto) Eos # (Auto) Baso # (Auto) Sodium Potassium Chloride Carbon Dioxide Anion Gap BUN Creatinine Est Cr Clr Drug Dosing Est GFR ( Amer) Est GFR (Non-Af Amer) BUN/Creatinine Ratio Glucose POC Glucose 134 H 63 L* 60 L* Calcium Total Bilirubin AST ALT Alkaline Phosphatase Total Protein Albumin Globulin Albumin/Globulin Ratio Urine Color Urine Appearance Urine pH Ur Specific [place] Urine Protein Urine Glucose (UA) Urine Ketones Urine Blood Urine Nitrite Urine Bilirubin Urine Urobilinogen Ur Leukocyte Esterase Urine WBC (Auto) Urine RBC (Auto) U Hyaline Cast (Auto) U Epithel Cells (Auto) Urine Bacteria (Auto) Ur Renal Epithelial Cell Granular Casts Waxy Casts WBC Casts 12/21/18 12/21/18 12/21/18 21:06 21:07 21:26 WBC RBC Hgb Hct MCV MCH MCHC RDW Std Deviation RDW Coeff of Kami Plt Count MPV Immature Gran % (Auto) Neut % (Auto) Lymph % (Auto) Day % (Auto) Eos % (Auto) Baso % (Auto) Immature Gran # (Auto) Neut # (Auto) Lymph # (Auto) Day # (Auto) Eos # (Auto) Baso # (Auto) Sodium Potassium Chloride Carbon Dioxide Anion Gap BUN Creatinine Est Cr Clr Drug Dosing Est GFR ( Amer) Est GFR (Non-Af Amer) BUN/Creatinine Ratio Glucose POC Glucose 57 L* 59 L* 68 L* Calcium Total Bilirubin AST ALT Alkaline Phosphatase Total Protein Albumin Globulin Albumin/Globulin Ratio Urine Color Urine Appearance Urine pH Ur Specific [place] Urine Protein Urine Glucose (UA) Urine Ketones Urine Blood Urine Nitrite Urine Bilirubin Urine Urobilinogen Ur Leukocyte Esterase Urine WBC (Auto) Urine RBC (Auto) U Hyaline Cast (Auto) U Epithel Cells (Auto) Urine Bacteria (Auto) Ur Renal Epithelial Cell Granular Casts Waxy Casts WBC Casts 12/21/18 12/21/18 21:59 Unknown WBC RBC Hgb Hct MCV MCH MCHC RDW Std Deviation RDW Coeff of Kami Plt Count MPV Immature Gran % (Auto) Neut % (Auto) Lymph % (Auto) Day % (Auto) Eos % (Auto) Baso % (Auto) Immature Gran # (Auto) Neut # (Auto) Lymph # (Auto) Day # (Auto) Eos # (Auto) Baso # (Auto) Sodium Potassium Chloride Carbon Dioxide Anion Gap BUN Creatinine Est Cr Clr Drug Dosing Est GFR ( Amer) Est GFR (Non-Af Amer) BUN/Creatinine Ratio Glucose POC Glucose 139 H Calcium Total Bilirubin AST ALT Alkaline Phosphatase Total Protein Albumin Globulin Albumin/Globulin Ratio Urine Color Yellow Urine Appearance Cloudy A Urine pH 5.0 Ur Specific [place] 1.028 Urine Protein 4+ H Urine Glucose (UA) 2+ H Urine Ketones Negative Urine Blood Negative Urine Nitrite Negative Urine Bilirubin Negative Urine Urobilinogen Negative Ur Leukocyte Esterase Trace H Urine WBC (Auto) 10-30 H Urine RBC (Auto) 0-4 U Hyaline Cast (Auto) 5-10 H U Epithel Cells (Auto) >30 H Urine Bacteria (Auto) Negative Ur Renal Epithelial Cell Not Reportable Granular Casts 1-5 H Waxy Casts 1-5 H WBC Casts 1-5 H PG Care Time/CCT Total # of Minutes Spent Total Time Spent with Patient: Total time spent is greater than 50% in coordination of care (as documented) at patient's floor/unit and/or counseling patient: (1) Nausea and vomiting Vomiting Intractability: intractable Vomiting type: unspecified Qualified Code(s): R11.2 - Nausea with vomiting, unspecified (2) HTN (hypertension) Hypertension type: essential hypertension Qualified Code(s): I10 - Essential (primary) hypertension (3) BPH (benign prostatic hyperplasia) Lower urinary tract symptom presence: symptoms present Lower urinary tract symptom detail: incomplete bladder emptying Qualified Code(s): N40.1 - Benign prostatic hyperplasia with lower urinary tract symptoms; R39.14 - Feeling of incomplete bladder emptying
[2018-12-22] MEDS: ONDANSETRON INJ 2 MG/ML 2 ML VIAL IV PRN ×2 (00:24→08:21)
[2018-12-22] MEDS: INSULIN ASPART 100 UNITS/ML 3 ML PEN SC SCH ×3 (00:24→08:22)
[2018-12-22] MEDS ORDERED: METOPROLOL TARTRATE 1 MG/ML VIAL IV PRN (00:31)
[2018-12-22] MEDS ORDERED: METOPROLOL TARTRATE 1 MG/ML VIAL IV ONE (01:05)
[2018-12-22 06:00] LABS: Basophils # (auto) 0.09 K/uL (0-0.2); Basophils % (auto) 0.8 %; Eosinophils % (auto) 1.9 %; Hematocrit (blood only) 36.8 % (42-52); Hemoglobin 11.8 g/dL (14.0-18.0); Immature Granulocytes # (auto) 0.06 K/uL (0.00-0.02); Immature Granulocytes % (auto) 0.6 %; Lymphocytes # (auto) 2.13 K/uL (1.2-3.4); Lymphocytes % (auto) 19.8 %; Mean Corpuscular Hgb Conc 32.1 g/dL (32-36); Mean Corpuscular Volume 93.9 fL (80-100); Monocytes # (auto) 1.79 K/uL (0.11-0.59); Monocytes % (auto) 16.7 %; Neutrophils # (auto) 6.48 K/uL (1.4-6.5); Neutrophils % (auto) 60.2 %; Platelet Count 232 K/uL (130-400); RDW Coefficient of Variation 14.3 % (11.5-14.5); RDW Standard Deviation 48.7 fL (36.4-46.3); Red Blood Count 3.92 M/uL (4.7-6.1); White Blood Count 10.75 K/uL (4.8-10.8)
[2018-12-22 06:57] LABS: Albumin Globulin Ratio 0.9 (0.9-2); BUN Creatinine Ratio 8.8 (10-20); Bilirubin,Total 0.3 mg/dl (0.2-1); Calcium 7.8 mg/dl (8.5-10.1); Creatinine Clr Calc Pharmacy 10.7 ml/min; Est GFR (African American) 9.6; Est GFR (Non-African American) 8.3; Globulin 3.2 gm/dl (2.5-4.0); Potassium 3.6 mmol/L (3.5-5.1); Total Protein 6.2 gm/dl (6.4-8.2)
[2018-12-22] MEDS ORDERED: SODIUM CHLORIDE 0.9% 1000ML 1,000 ML IV PRN (07:25)
[2018-12-22] MEDS ORDERED: HEPARIN SOD (PORCINE) 1000 UNIT/ML 10 ML VIAL IV ONE (07:25)
--- NOTE | 2018-12-22 08:04 | Nephrology Progress Note ---
Date of Service December 22, 2018 Assessment & Plan (1) End-stage renal disease on hemodialysis: for routine HD today; 4 hr tx, 3 K bath; given HTN, will be aggressive w/ fluid removal as tolerated up to 2.5L; next HD on 12/24 or as clinical status dictates (2) Hypoglycemia due to type 1 diabetes mellitus: per primary service; some low BG last evening in 50-60s; this am in high 100s (3) Nausea and vomiting: per primary service (4) Anemia due to end stage renal disease: hgb 11.8; no indication for FLOR or Fe therapy currently (5) HTN (hypertension): SBP in 170-180 range since admission; at least some situational component most likely. takes max dose amlodipine as OP, to be restarted this am and w/ prn metoprolol for HTN currently. he has had 1 dose prn medication so far. if sbp same range post tx, consider prn hydralazine q4 h 10 mg IV Subjective c/o N; no abd pain, no diarrhea, no musculoskeletal pain, no sob, no edema Review of Systems Review of Systems: All systems reviewed & are unremarkable except as noted in HPI & below Physical Exam Constitutional: well developed and well nourished; no acute distress lying hob 30 degrees on ra w/ emesis bag Eyes: EOM intact bilaterally ENMT: Ears: no external ear abnormality Nose: no external nose abnormality Mouth: + dry oral mucous membranes Neck: no nuchal rigidity Respiratory: normal respiratory effort Auscultation: + diminished lung sounds Cardiovascular: Rate/Rhythm: regular rate and regular rhythm Extremities: no edema Gastrointestinal (Abdomen): Inspection/Auscultation: normal bowel sounds Percussion/Palpation: + abdomen tender (epigastric to moderate palpation) and abdomen soft Musculoskeletal: Extremities: strength 5/5 throughout Skin: no rashes, warm and dry + pallor Neurologic: spicer, fluen tspeech no tremor Psychiatric: Orientation: alert and oriented x 3 Eye Contact: good eye contact Speech: normal rate/rhythm/volume of speech Affect: + depressed affect Results & Data Vital Signs (Past 12 Hours) Vital Signs Temp Pulse Pulse Resp BP BP Pulse Ox 12/22/18 07:35 36.6 C 83 16 185/115 H 97 12/22/18 04:00 36.6 C 67 17 177/103 H 96 12/22/18 01:30 68 16 152/92 H 12/22/18 01:08 73 186/112 H 12/22/18 00:05 79 12/22/18 00:00 36.8 C 83 17 186/112 H 98 12/21/18 20:45 79 12/21/18 20:37 36.9 C 79 19 176/105 H 96 Laboratory Results Abnormal lab results 12/21/18 12/21/18 12/21/18 Range/Units 09:28 10:33 11:31 RBC (4.7-6.1) M/uL Hgb (14.0-18.0) g/dL Hct (42-52) % RDW Std Deviation (36.4-46.3) fL Immature Gran # (Auto) (0.00-0.02) K/uL Saunders # (Auto) (0.11-0.59) K/uL BUN (7-18) mg/dl Creatinine (0.6-1.4) mg/dl BUN/Creatinine Ratio (10-20) Glucose (70-99) mg/dl POC Glucose 345 H* 284 H 234 H (70-99) Calcium (8.5-10.1) mg/dl AST (15-37) U/L Total Protein (6.4-8.2) gm/dl Albumin (3.4-5.0) gm/dl Urine Appearance (Clear) Urine Protein (Negative) Urine Glucose (UA) (Negative) Ur Leukocyte Esterase (Negative) Urine WBC (Auto) (0-5) /hpf U Hyaline Cast (Auto) (0-5) /lpf U Epithel Cells (Auto) (0-5) /lpf Granular Casts (0) /lpf Waxy Casts (0) /lpf WBC Casts (0) /lpf 12/21/18 12/21/18 12/21/18 Range/Units 12:30 13:34 16:28 RBC (4.7-6.1) M/uL Hgb (14.0-18.0) g/dL Hct (42-52) % RDW Std Deviation (36.4-46.3) fL Immature Gran # (Auto) (0.00-0.02) K/uL Saunders # (Auto) (0.11-0.59) K/uL BUN (7-18) mg/dl Creatinine (0.6-1.4) mg/dl BUN/Creatinine Ratio (10-20) Glucose (70-99) mg/dl POC Glucose 223 H 206 H 134 H (70-99) Calcium (8.5-10.1) mg/dl AST (15-37) U/L Total Protein (6.4-8.2) gm/dl Albumin (3.4-5.0) gm/dl Urine Appearance (Clear) Urine Protein (Negative) Urine Glucose (UA) (Negative) Ur Leukocyte Esterase (Negative) Urine WBC (Auto) (0-5) /hpf U Hyaline Cast (Auto) (0-5) /lpf U Epithel Cells (Auto) (0-5) /lpf Granular Casts (0) /lpf Waxy Casts (0) /lpf WBC Casts (0) /lpf 12/21/18 12/21/18 12/21/18 Range/Units 20:40 20:41 21:06 RBC (4.7-6.1) M/uL Hgb (14.0-18.0) g/dL Hct (42-52) % RDW Std Deviation (36.4-46.3) fL Immature Gran # (Auto) (0.00-0.02) K/uL Saunders # (Auto) (0.11-0.59) K/uL BUN (7-18) mg/dl Creatinine (0.6-1.4) mg/dl BUN/Creatinine Ratio (10-20) Glucose (70-99) mg/dl POC Glucose 63 L* 60 L* 57 L* (70-99) Calcium (8.5-10.1) mg/dl AST (15-37) U/L Total Protein (6.4-8.2) gm/dl Albumin (3.4-5.0) gm/dl Urine Appearance (Clear) Urine Protein (Negative) Urine Glucose (UA) (Negative) Ur Leukocyte Esterase (Negative) Urine WBC (Auto) (0-5) /hpf U Hyaline Cast (Auto) (0-5) /lpf U Epithel Cells (Auto) (0-5) /lpf Granular Casts (0) /lpf Waxy Casts (0) /lpf WBC Casts (0) /lpf 12/21/18 12/21/18 12/21/18 Range/Units 21:07 21:26 21:59 RBC (4.7-6.1) M/uL Hgb (14.0-18.0) g/dL Hct (42-52) % RDW Std Deviation (36.4-46.3) fL Immature Gran # (Auto) (0.00-0.02) K/uL Saunders # (Auto) (0.11-0.59) K/uL BUN (7-18) mg/dl Creatinine (0.6-1.4) mg/dl BUN/Creatinine Ratio (10-20) Glucose (70-99) mg/dl POC Glucose 59 L* 68 L* 139 H (70-99) Calcium (8.5-10.1) mg/dl AST (15-37) U/L Total Protein (6.4-8.2) gm/dl Albumin (3.4-5.0) gm/dl Urine Appearance (Clear) Urine Protein (Negative) Urine Glucose (UA) (Negative) Ur Leukocyte Esterase (Negative) Urine WBC (Auto) (0-5) /hpf U Hyaline Cast (Auto) (0-5) /lpf U Epithel Cells (Auto) (0-5) /lpf Granular Casts (0) /lpf Waxy Casts (0) /lpf WBC Casts (0) /lpf 12/21/18 12/22/18 12/22/18 Range/Units Unknown 00:06 04:26 RBC (4.7-6.1) M/uL Hgb (14.0-18.0) g/dL Hct (42-52) % RDW Std Deviation (36.4-46.3) fL Immature Gran # (Auto) (0.00-0.02) K/uL Saunders # (Auto) (0.11-0.59) K/uL BUN (7-18) mg/dl Creatinine (0.6-1.4) mg/dl BUN/Creatinine Ratio (10-20) Glucose (70-99) mg/dl POC Glucose 231 H 135 H (70-99) Calcium (8.5-10.1) mg/dl AST (15-37) U/L Total Protein (6.4-8.2) gm/dl Albumin (3.4-5.0) gm/dl Urine Appearance Cloudy A (Clear) Urine Protein 4+ H (Negative) Urine Glucose (UA) 2+ H (Negative) Ur Leukocyte Esterase Trace H (Negative) Urine WBC (Auto) 10-30 H (0-5) /hpf U Hyaline Cast (Auto) 5-10 H (0-5) /lpf U Epithel Cells (Auto) >30 H (0-5) /lpf Granular Casts 1-5 H (0) /lpf Waxy Casts 1-5 H (0) /lpf WBC Casts 1-5 H (0) /lpf 12/22/18 12/22/18 12/22/18 Range/Units 05:36 05:36 07:32 RBC 3.92 L (4.7-6.1) M/uL Hgb 11.8 L (14.0-18.0) g/dL Hct 36.8 L (42-52) % RDW Std Deviation 48.7 H (36.4-46.3) fL Immature Gran # (Auto) 0.06 H (0.00-0.02) K/uL Saunders # (Auto) 1.79 H (0.11-0.59) K/uL BUN 63 H (7-18) mg/dl Creatinine 7.12 H* D (0.6-1.4) mg/dl BUN/Creatinine Ratio 8.8 L (10-20) Glucose 144 H (70-99) mg/dl POC Glucose 184 H (70-99) Calcium 7.8 L (8.5-10.1) mg/dl AST 13 L (15-37) U/L Total Protein 6.2 L (6.4-8.2) gm/dl Albumin 3.0 L (3.4-5.0) gm/dl Urine Appearance (Clear) Urine Protein (Negative) Urine Glucose (UA) (Negative) Ur Leukocyte Esterase (Negative) Urine WBC (Auto) (0-5) /hpf U Hyaline Cast (Auto) (0-5) /lpf U Epithel Cells (Auto) (0-5) /lpf Granular Casts (0) /lpf Waxy Casts (0) /lpf WBC Casts (0) /lpf (1) Nausea and vomiting Vomiting Intractability: intractable Vomiting type: unspecified Qualified Code(s): R11.2 - Nausea with vomiting, unspecified (2) HTN (hypertension) Hypertension type: essential hypertension Qualified Code(s): I10 - Essential (primary) hypertension
--- NOTE | 2018-12-22 10:01 | Pharmacy Report ---
Pharmacy Glycemic Short Note 2 - Date of Service December 22, 2018 - Glycemic Short BSG Results (Last 24 hours): 12/21/18 12/21/18 12/21/18 10:33 11:31 12:30 Glucose POC Glucose 284 H 234 H 223 H 12/21/18 12/21/18 12/21/18 13:34 16:28 20:40 Glucose POC Glucose 206 H 134 H 63 L* 12/21/18 12/21/18 12/21/18 20:41 21:06 21:07 Glucose POC Glucose 60 L* 57 L* 59 L* 12/21/18 12/21/18 12/22/18 21:26 21:59 00:06 Glucose POC Glucose 68 L* 139 H 231 H 12/22/18 12/22/18 12/22/18 04:26 05:36 07:32 Glucose 144 H POC Glucose 135 H 184 H Outpatient Anti-diabetic Regimen: * Humalog insulin pump * Basal ~ 20 units/day (with lower rate overnight noted) * Carb ratio: 7-10 g CHO/unit * Correction factor: 35 mg/dL/unit * Goal range 100-130 mg/dL * A1c = 6.6% on 12/20/18 * However, this result is likely somewhat unreliable in ESRD patients d/t interactions between the A1c analyzing technique and high levels of urea in ESRD, reduced RBC life span, iron deficiency anemia, and EPO admi nistration. HbA1c > 7.5% in ESRD patient may overestimate the extent of hyperglycemia in ESRD patients. The patient is currently receiving: * Basal insulin * Lantus 10 units SQ x1 yesterday AM with additional 4 units at lunch. No Lantus today (12/22) * Bolus insulin * NovoLog per scale ACHS or Q6hrs while NPO * Goal Range: Low 120 mg/dL - High 150 mg/dL * Correction Factor: 30 mg/dL/unit * Nutritional / Prandial insulin per carb ratio of 1 unit per 10 grams CHO consumed Risk Factors for Insulin Resistance: * Diet: T1DM ASSESSMENT: * 48 yo M with T1DM admitted with N/V. He is a very brittle Type 1 diabetic known to us from previous hospitalizations - significant fluctuations in BSG's are common for him. His last admission, he went on and off an insulin drip on 4 separate occasions and eventually transitioned to his home insulin pump prior to discharge * Spoke w Dr. Townsend yesterday - discussed transitioning patient back to his home insulin pump today. * Spoke king Loomis (RN) - discussed resuming pump today. Ebonie noted patient is currently at dialysis and will be back ~1300. Therefore I will start pump orders at that time. Last dose of Lantus was yesterday at lunch. PLAN FOR INPATIENT GLYCEMIC CONTROL: * Patient to resume home insulin pump after HD today and follow hospital policy number [id number] PLAN FOR DISCHARGE: * Resume/continue home regimen/insulin pump
[2018-12-22] MEDS ORDERED: INSULIN HUMAN LISPRO (humaLOG) 100 UNITS/ML VIAL SC PRN (13:00)
[2018-12-22] MEDS: METOCLOPRAMIDE HCL 5 MG TABLET PO SCH ×3 (14:11→17:16)
[2018-12-22] MEDS: AMLODIPINE BESYLATE 5 MG TAB PO SCH (14:29)
[2018-12-22] MEDS: SERTRALINE HCL 100 MG TABLET PO SCH (14:31)
[2018-12-22] MEDS: FAMOTIDINE 20 MG TAB PO SCH (14:31)
[2018-12-22] MEDS ORDERED: INSULIN ASPART 100 UNITS/ML 3 ML PEN SC STA (14:48)
[2018-12-22] MEDS: HEPARIN SOD (PORCINE) 1000 UNIT/ML 10 ML VIAL IV SCH (14:50)
--- NOTE | 2018-12-22 21:04 | Hospitalist Progress Note ---
Date of Service December 22, 2018 Assessment & Plan (1) Nausea and vomiting: RESOLVED. ETIOLOGY ?? Suspect combination of gastroparesis with psychogenic factors as well. The patient had numerous episodes of this during his prior hospitalization. Some of it was felt to be due to gastroparesis, some due to infection (pyelonephritis, UTI), and some due to anxiety. He had poor response to all anti-emetics but compazine worked best. He had nausea/emesis despite use of erythromycin. He sometimes had emesis despite scheduled reglan. CT abd/pelvis this admission with ?proctocolitis but has not had rectal pain or abd pain to suggest such and not having active diarrhea. Rectal exam without evidence of proctitis either. Urine cx negative. Cont reglan TID (ac). Tolerating T1DM/Renal diet at this time. (2) Gastroparesis: Cont reglan at 5mg TID prior to meals. Compazine or zofran prn for refractory nausea/vomiting. 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 appreciate pharmacy glycemic assistance. adjust pump settings if he has persistent hyperglycemia. (4) Hypoglycemia due to type 1 diabetes mellitus: See above. Resolved. (5) End-stage renal disease on hemodialysis: Appreciate [facility] Nephrology consultation. Cont HD schedule M//. (6) Anxiety with depression: Resumed zoloft. Depression is severe, major depression. He needs to see psychiatry. Spoke with father - recommended [facility] in [place]. (7) HTN (hypertension): Was high but BPs now improved s/p HD today. Cont same meds. Follow. 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 He has BPH on examination. Consider starting alpha deidre - this may help with his urine flow as he does make urine 1-2x's daily despite ESRD status. (9) Neurogenic bladder: as above (10) DVT prophylaxis: father updated 12/22/18 hopefully home tomorrow encouraged him to ambulate more today in preparation for going home Subjective tele stable overnight (NSR). able to eat breakfast and lunch today w/o nausea or vomiting. no diarrhea. no abd pain. no rectal pain. no cough, dyspnea, cp. spoke with pt's father -- he is VERY concerned about pt's depression. most days patient spends a lot of time sleeping or if he is awake he does little activity. father states his insulin pump "Could be beeping and he will do nothing to fix it." they recently decided he would switch counselors because they were having access issues to that counselor. hadn't seen the counselor since early October. has not seen psychiatry. Review of Systems Constitutional: no fever Respiratory: no cough and no dyspnea Cardiovascular: no chest pain Gastrointestinal: no abdominal pain, no nausea and no vomiting Genitourinary: + difficulty urinating; no dysuria Physical Exam Constitutional: + thin; no acute distress and no altered mental status ENMT: external ear and nose normal, oropharynx normal Respiratory: normal respiratory effort, lungs clear to auscultation Cardiovascular: Rate/Rhythm: regular rate and regular rhythm Heart Sounds: normal S1 and normal S2; no murmur Vessels: posterior tibial pulses present and dorsalis pedis pulses present; no JVD Gastrointestinal (Abdomen): normal bowel sounds, soft, nontender, no hepatosplenomegaly Skin: right chest - permcath - clean Psychiatric: Orientation: alert and oriented x 3 Affect: + flat affect Results & Data Vital Signs (Past 12 Hours) Vital Signs Temp Pulse Pulse Resp BP BP Pulse Ox 12/22/18 19:08 36.5 C 77 18 139/88 97 12/22/18 16:00 78 12/22/18 15:04 36.6 C 80 18 143/84 H 94 12/22/18 14:46 75 173/108 H 168/103 H 12/22/18 13:20 36.9 C 75 173/108 H 12/22/18 13:00 76 165/105 H 12/22/18 12:40 75 145/103 H 12/22/18 12:20 73 157/102 H 12/22/18 12:00 72 166/108 H 12/22/18 11:40 75 171/109 H 12/22/18 11:20 72 173/112 H 12/22/18 11:00 76 175/119 H 12/22/18 10:40 73 176/117 H 12/22/18 10:20 73 160/108 H 12/22/18 10:00 71 168/107 H 12/22/18 09:40 72 158/99 H 12/22/18 09:20 36.8 C 76 76 188/114 H Laboratory Results Laboratory Results - last 24 hr 12/21/18 12/21/18 12/21/18 21:06 21:07 21:26 WBC RBC Hgb Hct MCV MCH MCHC RDW Std Deviation RDW Coeff of Kami Plt Count MPV Immature Gran % (Auto) Neut % (Auto) Lymph % (Auto) Holmes % (Auto) Eos % (Auto) Baso % (Auto) Immature Gran # (Auto) Neut # (Auto) Lymph # (Auto) Holmes # (Auto) Eos # (Auto) Baso # (Auto) Sodium Potassium Chloride Carbon Dioxide Anion Gap BUN Creatinine Est Cr Clr Drug Dosing Est GFR ( Amer) Est GFR (Non-Af Amer) BUN/Creatinine Ratio Glucose POC Glucose 57 L* 59 L* 68 L* Calcium Total Bilirubin AST ALT Alkaline Phosphatase Total Protein Albumin Globulin Albumin/Globulin Ratio 12/21/18 12/22/18 12/22/18 21:59 00:06 04:26 WBC RBC Hgb Hct MCV MCH MCHC RDW Std Deviation RDW Coeff of Kami Plt Count MPV Immature Gran % (Auto) Neut % (Auto) Lymph % (Auto) Holmes % (Auto) Eos % (Auto) Baso % (Auto) Immature Gran # (Auto) Neut # (Auto) Lymph # (Auto) Holmes # (Auto) Eos # (Auto) Baso # (Auto) Sodium Potassium Chloride Carbon Dioxide Anion Gap BUN Creatinine Est Cr Clr Drug Dosing Est GFR ( Amer) Est GFR (Non-Af Amer) BUN/Creatinine Ratio Glucose POC Glucose 139 H 231 H 135 H Calcium Total Bilirubin AST ALT Alkaline Phosphatase Total Protein Albumin Globulin Albumin/Globulin Ratio 12/22/18 12/22/18 12/22/18 05:36 05:36 07:32 WBC 10.75 RBC 3.92 L Hgb 11.8 L Hct 36.8 L MCV 93.9 MCH 30.1 MCHC 32.1 RDW Std Deviation 48.7 H RDW Coeff of Kami 14.3 Plt Count 232 MPV 9.0 Immature Gran % (Auto) 0.6 Neut % (Auto) 60.2 Lymph % (Auto) 19.8 Holmes % (Auto) 16.7 Eos % (Auto) 1.9 Baso % (Auto) 0.8 Immature Gran # (Auto) 0.06 H Neut # (Auto) 6.48 Lymph # (Auto) 2.13 Holmes # (Auto) 1.79 H Eos # (Auto) 0.20 Baso # (Auto) 0.09 Sodium 136 Potassium 3.6 Chloride 101 Carbon Dioxide 25 Anion Gap 10.0 BUN 63 H Creatinine 7.12 H* D Est Cr Clr Drug Dosing 10.7 Est GFR ( Amer) 9.6 Est GFR (Non-Af Amer) 8.3 BUN/Creatinine Ratio 8.8 L Glucose 144 H POC Glucose 184 H Calcium 7.8 L Total Bilirubin 0.3 AST 13 L ALT 16 Alkaline Phosphatase 103 Total Protein 6.2 L Albumin 3.0 L Globulin 3.2 Albumin/Globulin Ratio 0.9 12/22/18 12/22/18 12/22/18 13:57 16:12 16:13 WBC RBC Hgb Hct MCV MCH MCHC RDW Std Deviation RDW Coeff of Kami Plt Count MPV Immature Gran % (Auto) Neut % (Auto) Lymph % (Auto) Holmes % (Auto) Eos % (Auto) Baso % (Auto) Immature Gran # (Auto) Neut # (Auto) Lymph # (Auto) Holmes # (Auto) Eos # (Auto) Baso # (Auto) Sodium Potassium Chloride Carbon Dioxide Anion Gap BUN Creatinine Est Cr Clr Drug Dosing Est GFR ( Amer) Est GFR (Non-Af Amer) BUN/Creatinine Ratio Glucose POC Glucose 204 H 344 H* 324 H* Calcium Total Bilirubin AST ALT Alkaline Phosphatase Total Protein Albumin Globulin Albumin/Globulin Ratio Diagnostic Findings urine culture negative PG Care Time/CCT Total # of Minutes Spent Total Time Spent with Patient: Total time spent is greater than 50% in coordination of care (as documented) at patient's floor/unit and/or counseling patient: (1) BPH (benign prostatic hyperplasia) Lower urinary tract symptom detail: incomplete bladder emptying Lower urinary tract symptom presence: symptoms present Qualified Code(s): N40.1 - Benign prostatic hyperplasia with lower urinary tract symptoms; R39.14 - Feeling of incomplete bladder emptying (2) Nausea and vomiting Vomiting Intractability: intractable Vomiting type: unspecified Qualified Code(s): R11.2 - Nausea with vomiting, unspecified (3) HTN (hypertension) Hypertension type: essential hypertension Qualified Code(s): I10 - Essential (primary) hypertension
[2018-12-23] MEDS: SERTRALINE HCL 100 MG TABLET PO SCH (07:52)
[2018-12-23] MEDS: AMLODIPINE BESYLATE 5 MG TAB PO SCH (07:52)
[2018-12-23] MEDS: METOCLOPRAMIDE HCL 5 MG TABLET PO SCH (07:53)
[2018-12-23] MEDS: FAMOTIDINE 20 MG TAB PO SCH (07:53)
--- NOTE | 2018-12-23 19:40 | Discharge Summary ---
Date of Service date of admission - December 19, 2018 date of discharge - December 23, 2018 Admission HPI Per Admitting Provider The patient is a 48-year-old male with a past medical history including ESRD on HD, type 1 diabetes mellitus poorly controlled by insulin pump, hypertension, gastroparesis, and depression who presented with nausea and emesis beginning 5 hours prior to ER arrival. Upon arrival in the emergency department, his glucose was found to be 58, his insulin pump was removed, and he was given an amp of D50. Patient while in the ED had intermittent nausea and vomiting, amplified significantly by anxiety and depression. Principal Diagnosis nausea with vomiting - resolved, exact etiology uncertain, suspect combination of gastroparesis and psychogenic factors Discharge Exam Constitutional + thin; no acute distress and no altered mental status ENMT external ear and nose normal, oropharynx normal Respiratory normal respiratory effort, lungs clear to auscultation Cardiovascular Rate/Rhythm: regular rate and regular rhythm Heart Sounds: normal S1 and normal S2; no murmur Vessels: posterior tibial pulses present and dorsalis pedis pulses present; no JVD Gastrointestinal (Abdomen) normal bowel sounds, soft, nontender, no hepatosplenomegaly Skin right sided IJ dialysis catheter, clean, no erythema or drainage Psychiatric Orientation: alert and oriented x 3 Affect: + flat affect Discharge Data Allergies Allergy/AdvReac Type Severity Reaction Status Date / Time shellfish derived Allergy Severe anaphylaxis Verified 12/23/18 16:46 codeine Allergy Intermediate Hives Verified 12/23/18 16:46 promethazine Allergy Intermediate itchy/hives Verified 12/23/18 16:46 Consultations [facility] for glycemic management Ordered Studies CT abd/pelvis - IMPRESSION: 1. Findings are consistent with a nonspecific proctocolitis, likely on an infectious or inflammatory basis in this age group. Clinical correlation will be required. 2. There is fecal retention in the rectosigmoid colon. 3. Right-sided nephrolithiasis. 4. The bladder wall appears thickened and hyperemic and there is pericystic inflammation. Correlate clinically and with urinalysis for evidence of cystitis. 5. Small Pericardial effusion. Hospital Course (1) Nausea and vomiting: RESOLVED. NO NAUSEA OR EMESIS FOR 48 HOURS PRIOR TO DISCHARGE. Tolerated diet on 12/22 and 12/23. ETIOLOGY ?? Suspect combination of gastroparesis with psychogenic factors as well. There were times that the patient, while speaking with him, would grab an emesis basin and start to dry heave. It would stop on its own, and he would then say he was fine. Nothing seemed to precipitate these episodes. CT abd/pelvis this admission with ?proctocolitis but he did not have diarrhea, rectal pain, or abdominal pain to suggest such. Rectal exam showed prostate enlargement but no prostatitis, no proctitis, and no fecal impaction. The patient had numerous episodes of nausea/emesis/dry heaves during his prior hospitalization in October 2018. Some of it was felt to be due to gastroparesis, some due to infection (pyelonephritis, UTI), and some due to severe anxiety/depression. He had poor response to all anti-emetics but compazine worked best. He had nausea/emesis despite use of erythromycin. He sometimes had emesis despite scheduled reglan as well. During that admission he had an extensive work-up for the vomiting including heart catheterization (normal), head CT (normal), CT abd/pelvis, EGD which showed candidal esophagitis, and gall bladder ultrasound (normal). Cortisol level and TSH were both normal during the October 2018 admission. He has previously seen a gastroparesis specialist in [place] and they prescribed erythromycin for him in the past. Again, during the October 2018 hospital stay, the erythromycin was ineffective. Urine culture this admission was negative. I increased his reglan from BID to TID dosing, and added pepcid 20mg daily during this stay. He did well on this and tolerated a T1DM/Renal diet in the 48 hours prior to discharge. (2) Gastroparesis: Cont reglan at 5mg TID prior to meals. Compazine or zofran prn for refractory nausea/vomiting. See discussion above in nausea/vomiting. (3) Anxiety with depression: Depression is major/severe. It has been ongoing for 6+ months or longer. He has had numerous psychosocial stressors and life changes including a recent divorce, loss of employment, he has moved into his parent's home in [place], has initiated dialysis in the last 2 months, does not see his children as much as he would like, etc. During the October 2018 stay he was seen by psychiatry. Zoloft was increased to 150mg during that stay. He was also seen by psych during other admissions earlier this year. He was previously followed by psychology in [place] but the patient's father states he has had difficult time gaining access to that clinic for regular appointments. They are attempting to switch his counseling to a therapist in [place]. I highly advised that Ivan link with a psychiatrist for medication management and recommended [facility] in [place]. The pt's father called [facility] and unfortunately they do not take his insurance. Nurse navigator for the hospitalist team was going to investigate other possibilities for outpatient psychiatric treatment. I believe that the patient's SEVERE depression and anxiety contributes to his vomiting. I also believe his depression prevents him from practicing good DM care. (4) Diabetes mellitus type 1, with complication, on assisted insulin pump: Required insulin infusion while here. Managed by pharmacy glycemic team. Was then transitioned to SC injections, and then ultimately was placed back on his pump. He was back on his home insulin pump for about 24 hours prior to discharge. Glycemic control on his home pump was fair. (5) Hypoglycemia due to type 1 diabetes mellitus: See above. Resolved. Again cortisol level in October was normal. (6) End-stage renal disease on hemodialysis: Managed by [facility] team. Received HD services on his usual schedule of M/W/. He is getting ready to have AV fistula creation in the next few weeks. (7) HTN (hypertension): Labile, but typically improved s/p dialysis sessions. Remains on amlodipine. 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 He has BPH on examination. Consider starting alpha deidre - this may help with his urine flow as he does make urine 1-2x's daily despite ESRD status. Defer this decision to his outpatient physicians. (9) Neurogenic bladder: as above Total Time Total Time Spent Total Time Spent (In Minutes): 45 Total Time Includes: Examination of the Patient, Discharge Planning, Medication Reconciliation and Communication With Other Providers Discharge Plan Discharge Items Patient Disposition: Home - Self-Care Reason For Visit: HYPOGLYCEMIA, NAUSEA WITH VOMITING Discharge Diagnosis: NAUSEA WITH VOMITING - RESOLVED. DUE TO GASTROPARESIS? STOMACH VIRUS? HYPOGLYCEMIA - RESOLVED. Discharge Goals: Diagnostic testing and Therapeutic intervention Activity: Resume your previous activity Non-emergency contact: Primary Care Provider, Rn Imaging and Psychiatrist Call non-emergency contact if: you have any medication questions, your symptoms worsen and your temperature is above 100.5 Follow-up/Referrals: Suman Montilla MD [Physician] - (please resume your normal dialysis s chedule of Thursday, Thursday, and Thursday.) Yoshi Moreno, [Primary Care Provider] - 12/27/18 1:30 pm (Please, follow up with Dr. Yoshi Moreno on ThursdayDecember 27 at 1:30 pm. *If you need to change this appointment, call the office at [phone].) Diet: Carb Count or DM1 and Dialysis Renal Fluids: 1500ml (6 cups) Addtl Provider Instructions: You were admitted for low blood sugar, nausea, and vomiting. All issues gradually improved and then fully resolved while here. It was uncertain what caused the nausea and vomiting. It is possible that your gastroparesis contributed to the symptoms. We did not find any infections (no urinary tract infection, etc). Your rectal exam revealed an enlarged prostate but NO prostate infection or evidence of proctitis (inflammation/infection of rectum). We are heavily concerned about your depression and we are attempting to find a local psychiatrist that accepts your insurance and can treat your depression. Recommendations - 1. Increase your reglan (metoclopramide) to 5mg before meals three times daily. 2. I would STOP your erythromycin for now since we are increasing the reglan. 3. Take pepcid (famotidine) 20mg once daily for acid reflux. 4. Resume your normal dialysis schedule. Follow-up - see [facility] dialysis this Thursday as scheduled. We are working on a psychiatry referral for you. Return to [facility] if -- * you have fevers over 100.5 degrees * you have severe, persistent hypoglycemia or hyperglycemia (lows or highs) * you have nausea and/or vomiting that is not responding to your medications * you have suicidal thoughts or thoughts of hurting someone else * any other concerns Prescriptions: New famotidine 20 mg Tablet 20 mg PO QAM Qty: 30 RF: 5 Continued atorvastatin 10 mg tablet 10 mg PO QAM RF: 0 Humalog U-100 Insulin 100 unit/mL Cartridge 1 sliding scale dose SUBCUT CONT RF: 0 amlodipine 10 mg tablet 10 mg PO QAM RF: 0 Bowie Caps 1 mg capsule 1 cap PO DAILY RF: 0 calcium acetate 667 mg capsule See Rx Instructions .ROUTE .COMPLEX MDD 7 CAPSULES/DAY RF: 0 Discontinued erythromycin 250 mg tablet See Rx Instructions .ROUTE .COMPLEX RF: 0 metoclopramide HCl 5 mg tablet 5 mg PO BID RF: 0 No Action hydralazine 25 mg Tablet 25 mg PO TID RF: 0 furosemide [Lasix] 20 mg Tablet 20 mg PO DAILY PRN (Reason: Edema) RF: 0 cholecalciferol (vitamin D3) [Vitamin D3] 2,000 unit Capsule 2,000 unit PO QAM RF: 0 sertraline 100 mg tablet 150 mg PO QAM RF: 0 metoclopramide HCl 5 mg tablet 5 mg PO TID RF: 0 prochlorperazine [Compazine] 25 mg Suppository 25 mg NC DAILY PRN (Reason: Nausea) RF: 0 ondansetron 4 mg tablet,disintegrating 4 mg PO Q6H PRN (Reason: nausea and vomiting) Qty: 14 RF: 0 Stand-Alone Forms: [facility] Discharge Orders: Discharge Order (Routine); Ordered 12/23/18 Ordered By: Guevara Townsend Admission Data Admit Date/Time: 12/19/18 23:15 Attending Provider: Guevara Townsend Admit Provider: Colton Guajardo Primary Care Provider: Yoshi Moreno Other Providers: Colton Guajardo ; Suman Montilla Service: Telemetry Other Interventions: Discharge Summary Assessment (RN) Last Done: 12/23/18 11:22 Pending Studies at Discharge: No DC Date/Time DO NOT enter until pt leaves facility: 12/23/18 11:42
== END 2018-12-23 11:42 | disposition home or self-care (01) | DRG 391 ==
LOC: ED 19:03 → 2E 23:15 → SUATTDRO 23:15 → 2E 23:48

== ENCOUNTER 2018-12-23 16:17 | Inpatient (IN) ==
[2018-12-23] MEDS ORDERED: ONDANSETRON INJ 2 MG/ML 2 ML VIAL IV STA ×2 (16:29→18:39)
[2018-12-23] MEDS ORDERED: SODIUM CHLORIDE 0.9% 1000ML 1,000 ML IV SCH (16:30)
[2018-12-23 16:47] LABS: Basophils # (auto) 0.04 K/uL (0-0.2); Basophils % (auto) 0.4 %; Eosinophils # (auto) 0.05 K/uL (0-0.5); Eosinophils % (auto) 0.5 %; Hematocrit (blood only) 40.9 % (42-52); Hemoglobin 13.7 g/dL (14.0-18.0); Immature Granulocytes # (auto) 0.03 K/uL (0.00-0.02); Immature Granulocytes % (auto) 0.3 %; Lymphocytes # (auto) 0.98 K/uL (1.2-3.4); Lymphocytes % (auto) 9.7 %; Mean Corpuscular Hgb Conc 33.5 g/dL (32-36); Mean Corpuscular Volume 89.7 fL (80-100); Mean Platelet Volume 9.7 fL (7.4-10.4); Monocytes # (auto) 0.88 K/uL (0.11-0.59); Monocytes % (auto) 8.7 %; Neutrophils # (auto) 8.16 K/uL (1.4-6.5); Neutrophils % (auto) 80.4 %; Platelet Count 167 K/uL (130-400); RDW Coefficient of Variation 14.1 % (11.5-14.5); RDW Standard Deviation 46.1 fL (36.4-46.3); Red Blood Count 4.56 M/uL (4.7-6.1); White Blood Count 10.14 K/uL (4.8-10.8)
--- NOTE | 2018-12-23 16:56 | Emergency Department Note ---
Entered by Dev Winkler acting as a scribe for Galen Ng DO History of Present Illness General Chief complaint: Vomiting Stated complaint: VOMITING, NAUSEA Time Seen by Provider: 12/23/18 16:22 Source: patient History of Present Illness Provider complaint: Nausea/vomiting Onset (ago): hour(s) 4 Location: left and right Maximum Pain Intensity: 2 Current Pain Intensity: 2 Quality: + other (worsening) Relieved By: + none Associated symptoms: + denies other symptoms (abd pain) and + nausea/vomiting; no chest pain and no shortness of breath The patient is a 48 year old male with a hx of diabetes, CKD (on dialysis), and depression who presents to the Emergency Room with complaints of vomiting that began approximately 4 hours ago. The patient states that he had 3-4 episodes of vomiting and has been nauseous for several hours. The patient rates his overall discomfort as a 2/10. The patient denies abd pain, chest pain, and shortness of breath. The patient notes that he was discarded from [facility] this morning, several hours ago. The patient was admitted December 20 and discharged December 23. Gastroparesis with psychogenic factors was noted at that time. Per the patients father outside of the room where the patient could not hear, the patient has not been self lately and has been lethargic. The father of the patient sates the patient has not paying attention to his health. He states that the patient was set up for counseling during a hospital stay 2-3 months ago, but never went to see the counselor. He describes the patient as "noncompliant". Home Medications Home Medications Medication Instructions Recorded Confirmed Type Humalog U-100 Insulin 1 sliding scale dose SUBCUT CONT 09/10/18 12/23/18 History atorvastatin 10 mg PO QAM 09/10/18 12/23/18 History [place] Caps 1 cap PO DAILY 12/19/18 12/23/18 History amlodipine 10 mg PO QAM 12/19/18 12/23/18 History calcium acetate See Rx Instructions .ROUTE 12/19/18 12/23/18 History .COMPLEX MDD 7 CAPSULES/DAY cholecalciferol (vitamin D3) 2,000 unit PO QAM 12/23/18 12/23/18 History [Vitamin D3] famotidine 20 mg PO QAM #30 tab 12/23/18 12/23/18 Rx furosemide [Lasix] 20 mg PO DAILY PRN 12/23/18 12/23/18 History hydralazine 25 mg PO TID 12/23/18 12/23/18 History metoclopramide HCl 5 mg PO TID 12/23/18 12/23/18 History ondansetron 4 mg PO Q6H PRN #14 tab 12/23/18 Rx prochlorperazine [Compazine] 25 mg AR DAILY PRN 12/23/18 12/23/18 History sertraline 150 mg PO QAM 12/23/18 12/23/18 History Allergies Allergy/AdvReac Type Severity Reaction Status Date / Time shellfish derived Allergy Severe anaphylaxis Verified 12/23/18 16:46 codeine Allergy Intermediate Hives Verified 12/23/18 16:46 promethazine Allergy Intermediate itchy/hives Verified 12/23/18 16:46 Past Med/Surg History Medical History Acid reflux Hypertension Type I diabetes mellitus Insulin pump (diagnosed at age 31) Gastroparesis due to DM Depression Anemia Anxiety CAD (coronary artery disease) mild, non-obstructive CAD per 10/2018 cardiac cath ESRD (end stage renal disease) Hemodialysis M,W,F (Follows with Dr. Taylor Higgins; [facility]/[place]). Kidney stones Peripheral neuropathy Retinopathy due to secondary diabetes Surgical History History of appendectomy H/O shoulder surgery RIGHT History of hip surgery LEFT HIP ARTHROSCOPY History of cardiac cath 10/2018= no stents, no obstructive disease (at [facility]) History of lithotripsy Permanent central venous catheter in place Permacath Family History Grandfather Myocardial infarction Grandfather (Maternal) Family history of diabetes mellitus Social History Preferred Language: Mongolian Communication Ability: Effective Beliefs That Will Affect Care: None marital status: Legally Current Living Situation: Family current occupational status: employed Feels Safe at Home: Yes Smoking Status: Never smoker Tobacco Type: smokeless tobacco Second Hand Exposure: No Hx Alcohol Use: No Hx Substance Use: No Review of Systems See HPI for pertinent positives & negatives. and A total of 10 systems reviewed and were otherwise negative Physical Exam Vital Signs Vital Signs - 24 hr 12/23/18 16:20 12/23/18 16:30 Temperature 36.4 C L Temperature Source Oral Sepsis Recent Fever Within 48 Hours No Sepsis Action Taken by Nursing No Action Required Pulse Rate 95 H Respiratory Rate 19 Respiratory Effort / Characteristics Non-Labored Respiratory Depth Normal Blood Pressure 143/93 H Blood Pressure Mean 109 Pulse Oximetry 99 97 Oxygen Delivery Method Room Air Room Air CONSTITUTIONAL/VITAL SIGNS: Reviewed / noted above. GENERAL: Non-toxic in appearance. INTEGUMENTARY: Warm, dry, and [place]. HEAD: Normocephalic. EYES: without scleral icterus or trauma. ENT/OROPHARYNX: clear and moist. LYMPHADENOPATHY/NECK: Is supple without lymphadenopathy or meningismus. RESPIRATORY: Lungs clear and equal. CARDIOVASCULAR: Regular rate and rhythm. GI/ABDOMEN: Soft and nontender. No organomegaly or pulsatile mass. No rebound or guarding. Normal bowel sounds. EXTREMITIES: Warm and well perfused. BACK: No CVA tenderness. NEUROLOGICAL: Intact without focal deficits. PSYCHIATRIC: normal affect. MUSCULOSKELETAL: Normally developed with good muscle tone. Course 1628: The patient was evaluated in room A03. A complete history and physical exam was performed. 1752: Upon reevaluation, the patient appeared to have improvement of his symptoms. I discussed findings with him. He verbalized agreement of the treatment plan. He was discharged home. Administered Medications Discontinued Medications Sodium Chloride (Nss 1000ml) 1,000 mls @ 999 mls/hr IV .Q1H1M [facility] Stop: 12/23/18 17:30 Last Infusion: 12/23/18 18:12 Dose: 0 mls/hr Documented by: [id number] Admin: 12/23/18 16:54 Dose: 999 mls/hr Documented by: [id number] Ondansetron HCl (Zofran) 4 mg IV NOW STA Stop: 12/23/18 16:30 Last Admin: 12/23/18 16:54 Dose: 4 mg Documented by: [id number] Medical Decision Making Differential Diagnosis Differential diagnosis: Etiologies such as gastroenteritis, food borne illness, infections, appendic itis, diverticulitis, inflammatory bowel disease, obstruction, GI bleed, biliary pathology, as well as others were entertained. Medical Records Attestation: I reviewed the patient's medical records. Home Medications Current Medication List: was personally reviewed by me Laboratory Data Attestation: I reviewed the patient's lab results. Result diagrams: 12/23/18 16:40 12/23/18 16:40 Lab Results 12/23/18 12/23/18 Range/Units 16:40 16:40 WBC 10.14 (4.8-10.8) K/uL RBC 4.56 L (4.7-6.1) M/uL Hgb 13.7 L (14.0-18.0) g/dL Hct 40.9 L (42-52) % MCV 89.7 (80-100) fL MCH 30.0 (25-34) pg MCHC 33.5 (32-36) g/dL RDW Std Deviation 46.1 (36.4-46.3) fL RDW Coeff of Kami 14.1 (11.5-14.5) % Plt Count 167 (130-400) K/uL MPV 9.7 (7.4-10.4) fL Immature Gran % (Auto) 0.3 % Neut % (Auto) 80.4 % Lymph % (Auto) 9.7 % [place] % (Auto) 8.7 % Eos % (Auto) 0.5 % Baso % (Auto) 0.4 % Immature Gran # (Auto) 0.03 H (0.00-0.02) K/uL Neut # (Auto) 8.16 H (1.4-6.5) K/uL Lymph # (Auto) 0.98 L (1.2-3.4) K/uL [place] # (Auto) 0.88 H (0.11-0.59) K/uL Eos # (Auto) 0.05 (0-0.5) K/uL Baso # (Auto) 0.04 (0-0.2) K/uL Sodium 131 L (136-145) mmol/L Potassium 4.0 (3.5-5.1) mmol/L Chloride 96 L (98-107) mmol/L Carbon Dioxide 21 (21-32) mmol/L Anion Gap 14.0 H (3-11) BUN 57 H (7-18) mg/dl Creatinine 6.49 H* D (0.6-1.4) mg/dl Est Cr Clr Drug Dosing 13.4 ml/min Est GFR ( Amer) 10.7 Est GFR (Non-Af Amer) 9.2 BUN/Creatinine Ratio 8.8 L (10-20) Glucose 295 H (70-99) mg/dl Calcium 8.1 L (8.5-10.1) mg/dl Total Bilirubin 0.4 (0.2-1) mg/dl AST 15 (15-37) U/L ALT 19 (12-78) U/L Alkaline Phosphatase 121 H (45-117) U/L Total Protein 7.6 D (6.4-8.2) gm/dl Albumin 3.8 (3.4-5.0) gm/dl Globulin 3.8 (2.5-4.0) gm/dl Albumin/Globulin Ratio 1.0 (0.9-2) Lipase 274 (73-393) U/L Imaging Data Radiologist's Impression: Radiology results as stated below per my review and the radiologist's interpretation: SINGLE VIEW CHEST CLINICAL HISTORY: Nausea and vomiting. FINDINGS: An AP, portable, upright chest radiograph is compared to study performed earlier the same day 12/23/2018. The examination is degraded by portable technique and patient rotation. A right subclavian central venous catheter is unchanged in position. The heart is top normal for projection. The pulmonary vasculature is noncongested. Emphysematous change is suspected. No airspace consolidation or large pleural effusion is identified. No pneumothorax is seen. The skeletal structures are osteopenic. The bony thorax is grossly intact. IMPRESSION: 1. No acute cardiopulmonary abnormality is identified and there has been no significant change from today's earlier examination. 2. Suspect emphysema. Electronically signed by: Dev Burden M.D. 12/23/2018 4:59 PM Blood Pressure Blood Pressure Findings: Elevated blood pressure Blood Pressure Disposition: Referred to patients primary care provider [facility] Narrative This is a 48-year-old male who presents the ED with a chief complaint of nausea/vomiting. The patient was in the hospital for 3 days and discharged this morning for the same. The father feels that it is psychiatric related. He was not discharged with any medications for his nausea. The patient denies any abdominal pains, back pains or shortness of breath. His last episode of vomiting was around 2 PM. He states that he vomited 3-4 times since that time. He has had nausea all day. The patient's blood work was relatively unremarkable and at the patient's baseline. His CBC is normal, BUN is 57 and creatinine is 6.49. He is a dialysis dependent renal failure patient. Glucose was 295. Lipase was negative and a chest x-ray was negative for acute disease. He was hydrated with IV fluids. 1 L normal saline was provided and Zofran 4 mg IV. The patient will be discharged with a prescription for Zofran. The patient was seen by [facility] case assembler. Impression & Plan Vomiting Discharge Plan Visit Data Chief Complaint: Vomiting Stated Complaint: VOMITING, NAUSEA ED Provider: Galen Ng Discharge Problem: Vomiting Patient Disposition: Home - Self-Care Condition: Good Discharge Instructions Activity Restrictions/Additional Instructions: Zofran: Allow one tablet to dissolve under the tongue every 6 hours as needed for nausea or vomiting. Follow-up with your doctor for further care and evaluation in 1-2 days if symptoms persist. Return to the emergency department for worsening or new symptoms or any concerns. You have been examined and treated today on an emergency basis only. This is not a substitute for, or an effort to provide, complete comprehensive medical care. It is impossible to recognize and treat all injuries or illnesses in a single emergency department visit. It is therefore important that you follow up closely with your doctor. Call as soon as possible for an appointment. Forms Stand Alone Forms: My [facility], Important Visit Information Prescriptions Prescriptions: New ondansetron 4 mg tablet,disintegrating 4 mg PO Q6H PRN (Reason: nausea and vomiting) Qty: 14 RF: 0 No Action atorvastatin 10 mg tablet 10 mg PO QAM RF: 0 Humalog U-100 Insulin 100 unit/mL Cartridge 1 sliding scale dose SUBCUT CONT RF: 0 hydralazine 25 mg Tablet 25 mg PO TID RF: 0 furosemide [Lasix] 20 mg Tablet 20 mg PO DAILY PRN (Reason: Edema) RF: 0 cholecalciferol (vitamin D3) [Vitamin D3] 2,000 unit Capsule 2,000 unit PO QAM RF: 0 sertraline 100 mg tablet 150 mg PO QAM RF: 0 metoclopramide HCl 5 mg tablet 5 mg PO TID RF: 0 prochlorperazine [Compazine] 25 mg Suppository 25 mg AR DAILY PRN (Reason: Nausea) RF: 0 amlodipine 10 mg tablet 10 mg PO QAM RF: 0 [place] Caps 1 mg capsule 1 cap PO DAILY RF: 0 calcium acetate 667 mg capsule See Rx Instructions .ROUTE .COMPLEX MDD 7 CAPSULES/DAY RF: 0 famotidine 20 mg Tablet 20 mg PO QAM Qty: 30 RF: 5 Referrals Referrals: Yoshi Reyes DO [Primary Care Provider] - Discharge Problem: Vomiting Qualifiers: Vomiting type: unspecified Vomiting Intractability: non-intractable Nausea presence: with nausea Qualified Code(s): R11.2 - Nausea with vomiting, unspecified The scribe's documentation has been prepared under my direction and personally reviewed by me in its entirety. I confirm that the note above accurately reflects all work, treatment, procedures, and medical decision making performed by me.
--- NOTE | 2018-12-23 17:00 | XRay Report ---
SINGLE VIEW CHEST CLINICAL HISTORY: Nausea and vomiting. FINDINGS: An AP, portable, upright chest radiograph is compared to study performed earlier the same d ay 12/23/2018. The examination is degraded by portable technique and patient rotation. A right subcl melanie central venous catheter is unchanged in position. The heart is top normal for projection. The p ulmonary vasculature is noncongested. Emphysematous change is suspected. No airspace consolidation or large pleural effusion is identified. No pneumothorax is seen. The skeletal structures are osteopeni c. The bony thorax is grossly intact. IMPRESSION: 1. No acute cardiopulmonary abnormality is identified and there has been no significant change from opal ivan's earlier examination. 2. Suspect emphysema. Electronically signed by: Dve Burden M.D. 12/23/2018 4:59 PM
[2018-12-23 17:44] LABS: Albumin Level 3.8 gm/dl (3.4-5.0); BUN Creatinine Ratio 8.8 (10-20); Bilirubin,Total 0.4 mg/dl (0.2-1); Calcium 8.1 mg/dl (8.5-10.1); Creatinine Clr Calc Pharmacy 13.4 ml/min; Est GFR (African American) 10.7; Est GFR (Non-African American) 9.2; Globulin 3.8 gm/dl (2.5-4.0); Total Protein 7.6 gm/dl (6.4-8.2)
[2018-12-23] MEDS ORDERED: ONDANSETRON INJ 2 MG/ML 2 ML VIAL ONE (18:40)
--- NOTE | 2018-12-23 20:53 | History & Physical Report ---
Date of Service December 23, 2018 Assessment & Plan (1) Intractable vomiting: This is an unfortunate 48 y/o m with a history of DMI, HTN, HLD, systolic CHF, ESRD, severe gastroparesis with intractable vomiting, severe depression. The pt was discharged earlier in the day after being admitted for nausea and vomiting. He has been admitted for the same multiple times this year. He follows with a gastroparesis specialist in [place]. Consideration was being given to a gastric pacer, however, the latest data on these devices is apparently unfavorable. He has failed a multitude of medications including Erythromycin and Reglan although he sometimes gains some relief with antiemetics. He is being considered for experimental nonsurgical treatment. He is a poor historian. He denies fevers, diarrhea or significant abdominal pain. 1) Intractable vomiting - NPO, scheduled Reglan provided - can consider IVF if his BP is low, although he has a tendency toward volume overload. We may not have much to offer him here if he is at the point where he was being considered for experimental treatment. Therefore, it may be prudent to stabilize him and discharge to [place] or transfer if his current vomiting cannot be controlled in a reasonable amount of time. 2) ESRD - due for dialysis Fri AM - nephrology consulted 3) DM - has a pump and is reasonably controlled 4) CHF - he is clinically euvolemic on admission and take Lasix PRN only. 5) HTN - will add PRN IV Hydralizine as he could not comply with his meds 6) HLD - statin when tolerating Full code - SCDs Total time for this admission including review of labs, meds, imaging, records - discussion with pt and ER attending 45 min Present on Admission?: Yes History of Present Illness Chief Complaint: Intractable nausea and vomiting. Primary Care Provider: Yoshi Reyes, DO This is an unfortunate 48 y/o m with a history of DMI, HTN, HLD, systolic CHF, ESRD, severe gastroparesis with intractable vomiting, severe depression. The pt was discharged earlier in the day after being admitted for nausea and vomiting. He has been admitted for the same multiple times this year. He follows with a gastroparesis specialist in [place]. Consideration was being given to a gastric pacer, however, the latest data on these devices is apparently unfavorable. He has failed a multitude of medications including Erythromycin and Reglan although he sometimes gains some relief with antiemetics. He is being considered for experimental nonsurgical treatment. He is a poor historian. He denies fevers, diarrhea or significant abdominal pain. PMH: 1) ESRD - HD - due to DM - he follows with [facility] nephrology. He suffered acute kidney injury 08/15. He had CKD III at the time and did not recover. 2) DMI - insulin pump 3) CHF - EF 40-45% 4) Nonocclusive CAD 5) HTN 6) HLD 7) Major depression Surgical: Appendectomy, hip surgery Social: Denies smoking or drinking - recently moved in with elderly parents Family: Grandfather with CAD Allergies Allergy/AdvReac Type Severity Reaction Status Date / Time shellfish derived Allergy Severe anaphylaxis Verified 12/23/18 16:46 codeine Allergy Intermediate Hives Verified 12/23/18 16:46 promethazine Allergy Intermediate itchy/hives Verified 12/23/18 16:46 Home Medications Home Medications Medication Instructions Recorded Confirmed Type Humalog U-100 Insulin 1 sliding scale dose SUBCUT CONT 09/10/18 12/23/18 History atorvastatin 10 mg PO QAM 09/10/18 12/23/18 History Chris Caps 1 cap PO DAILY 12/19/18 12/23/18 History amlodipine 10 mg PO QAM 12/19/18 12/23/18 History calcium acetate See Rx Instructions .ROUTE 12/19/18 12/23/18 History .COMPLEX MDD 7 CAPSULES/DAY cholecalciferol (vitamin D3) 2,000 unit PO QAM 12/23/18 12/23/18 History [Vitamin D3] famotidine 20 mg PO QAM #30 tab 12/23/18 12/23/18 Rx furosemide [Lasix] 20 mg PO DAILY PRN 12/23/18 12/23/18 History hydralazine 25 mg PO TID 12/23/18 12/23/18 History metoclopramide HCl 5 mg PO TID 12/23/18 12/23/18 History ondansetron 4 mg PO Q6H PRN #14 tab 12/23/18 Rx prochlorperazine [Compazine] 25 mg MA DAILY PRN 12/23/18 12/23/18 History sertraline 150 mg PO QAM 12/23/18 12/23/18 History Past Med/Surg History Medical History Acid reflux Hypertension Type I diabetes mellitus Insulin pump (diagnosed at age 31) Gastroparesis due to DM Depression Anemia Anxiety CAD (coronary artery disease) mild, non-obstructive CAD per 10/2018 cardiac cath ESRD (end stage renal disease) Hemodialysis M,W,F (Follows with Dr. Taylor Higgins; [facility]). Kidney stones Peripheral neuropathy Retinopathy due to secondary diabetes Surgical History History of appendectomy H/O shoulder surgery RIGHT History of hip surgery LEFT HIP ARTHROSCOPY History of cardiac cath 10/2018= no stents, no obstructive disease (at [facility]) History of lithotripsy Permanent central venous catheter in place Permacath Family History Grandfather Myocardial infarction Grandfather (Maternal) Family history of diabetes mellitus Social History Preferred Language: Turkmen Communication Ability: Effective Beliefs That Will Affect Care: None marital status: Legally Current Living Situation: Family current occupational status: employed Feels Safe at Home: Yes Smoking Status: Never smoker Tobacco Type: smokeless tobacco Second Hand Exposure: No Hx Alcohol Use: No Hx Substance Use: No Review of Systems Review of Systems: Gen: Denies fevers, night sweats, rigors, fatigue, malaise, weight loss/gain ENT: Denies congestion, throat pain, hearing loss Eyes: Denies acute visual changes CV: Denies CP, palpitations Pulmonary: Denies SOB, cough, wheezing GI: Intractable vomiting as above Neuro: Denies acute or unilateral weakness, acute gait impairment, headache or acute visual changes Musculoskeletal: Denies joint pain, inflammation Endocrine: Denies polydipsia, polyuria Skin: Denies acute rashes or ulcers Psych: He has been lying in bed mostly as of late Physical Exam Physical Exam: General: Flat affect, AAO x 3, no distress ENT: No erythema or exudates, no thrush Eyes: DWIGHT, EOMI Head and neck: Normocephalic, atraumatic, No JVD, neck is supple. Chest/heart: Nontender, S1,2, RRR, no murmurs, no gallops - dialysis cath in R chest Lungs: CTAB, no wheezing or crackles Abdomen: Nontender, nondistended Neuro: AAO x 3, speech is clear, no unilateral weakness or loss of sensation, coordination intact Musculoskeletal: No joint inflammation, muscle tenderness, FROM Skin: No acute rashes or ulcers Extremities: No clubbing, cyanosis, edema Results & Data Vital Signs (Past 12 Hours) Vital Signs Temp Pulse Pulse Resp BP BP Pulse Ox 12/23/18 20:33 78 20 183/108 H 99 12/23/18 18:49 72 12 190/108 H 98 12/23/18 16:30 97 12/23/18 16:20 97.5 F L 95 H 19 143/93 H 99 PG Care Time/CCT Total # of Minutes Spent Total Time Spent with Patient: Total time spent is greater than 50% in coordination of care (as documented) at patient's floor/unit and/or counseling patient: (1) Intractable vomiting Nausea presence: unspecified Vomiting type: unspecified Qualified Code(s): R11.10 - Vomiting, unspecified
[2018-12-23] MEDS ORDERED: ACETAMINOPHEN 325 MG TAB PO PRN (22:18)
[2018-12-23] MEDS ORDERED: NON-FORMULARY MEDICATION (Insulin Lispro [Humalog U-100 Insulin] 1 sliding scale dose) SQ SCH (22:18)
[2018-12-23] MEDS ORDERED: METOCLOPRAMIDE HCL 5 MG TABLET PO SCH (22:18)
[2018-12-23] MEDS: METOCLOPRAMIDE HCL INJ 5 MG/ML 2 ML VIAL IV SCH (22:51)
[2018-12-23] MEDS ORDERED: GLUCAGON FOR INJ 1 MG VIAL SQ PRN (23:00)
[2018-12-23] MEDS ORDERED: CARBOHYDRATES FOR HYPOGLYCEMIA PO PRN (23:00)
[2018-12-23] MEDS ORDERED: GLUCOSE 10 TABS/TUBE PO PRN (23:00)
[2018-12-23] MEDS ORDERED: INSULIN HUMAN LISPRO (humaLOG) 100 UNITS/ML VIAL SC PRN (23:00)
[2018-12-23] MEDS ORDERED: DEXTROSE 50% 50 ML SYRINGE IV PRN (23:00)
[2018-12-23] MEDS ORDERED: GLUCOSE 40% GEL 15 GM TUBE PO PRN (23:00)
[2018-12-23] MEDS: PROCHLORPERAZINE 25 MG SUPP PR PRN (23:37)
[2018-12-24] MEDS: HydrALAZINE HCL 20 MG/ML VIAL IV PRN ×2 (00:30→11:46)
[2018-12-24] MEDS: ONDANSETRON INJ 2 MG/ML 2 ML VIAL IV PRN ×3 (00:30→13:54)
[2018-12-24] MEDS: METOCLOPRAMIDE HCL INJ 5 MG/ML 2 ML VIAL IV SCH ×4 (05:42→21:59)
[2018-12-24 07:44] LABS: BUN Creatinine Ratio 9.3 (10-20); Calcium 7.8 mg/dl (8.5-10.1); Creatinine Clr Calc Pharmacy 11.4 ml/min; Est GFR (African American) 10.5; Est GFR (Non-African American) 9.1; Magnesium 2.4 mg/dl (1.8-2.4); Potassium 3.6 mmol/L (3.5-5.1)
[2018-12-24] MEDS ORDERED: SODIUM CHLORIDE 0.9% 1000ML 1,000 ML IV PRN (07:52)
[2018-12-24] MEDS ORDERED: HEPARIN SOD (PORCINE) 1000 UNIT/ML 10 ML VIAL IV SCH (08:00)
[2018-12-24] MEDS: CALCIUM ACETATE 667 MG CAP PO SCH ×4 (08:30→20:20)
[2018-12-24] MEDS ORDERED: SERTRALINE HCL 100 MG TABLET PO SCH (09:00)
[2018-12-24] MEDS: FAMOTIDINE 20 MG TAB PO SCH (09:27)
[2018-12-24] MEDS: ATORVASTATIN 10 MG TAB PO SCH (09:27)
[2018-12-24] MEDS: AMLODIPINE BESYLATE 5 MG TAB PO SCH (09:27)
[2018-12-24] MEDS: NEPHROCAPS PO SCH (09:28)
--- NOTE | 2018-12-24 13:12 | Psychiatric Consultation ---
Date of Consultation December 24, 2018 Impression / Recommendations Impression 48-year-old male admitted medically on 12/23/2018 due to nausea, vomiting, and abdominal pain. Patient presented to the ED only hours after he was discharged from the medical floor for similar concerns. Psychiatric consultation was requested due to concerns for severe depression. Patient is well-known to our service from several previous consultations, most recently on 11/01/18. Recommendations at that time were for further titration of sertraline if increase to 150mg was beneficial in managing his anxiety and improving mood. Other suggestions included augmentation with bupropion 100mg qAM with cautious titration or Trintellix. Given favorable response to previous titration of sertraline and no reported side effects to dose adjustment, would recommend titrating to the maximum recommended dosing of 200mg daily. Risks, benefits, and potential side effects of the dose change were reviewed with the patient who verbalized understanding and is agreeable with plan. Pt denies SI/HI, A/V hallucinations, and other psychiatric concerns at this time, meaning there is no criteria for inpatient psychiatric admission. Pt to follow-up with outpatient prescriber for further medication adjustments. Dr. Rome Kim was directly involved in review and discussion of the patient's case and participated in medical decision making regarding treatment recommendations. Plan: 12/24 - Titrate sertraline to 200mg daily to target low mood and anxiety - Following as scheduled with outpatient prescriber and therapist - No criteria for inpatient psychiatric admission - Pt denies other needs from our service at this time Risk Factors Assessment Do You Have Access To A Gun?: No CPT Code Initial Consultation: 54316 Psych History Identifying Data 48-year-old male admitted medically on 12/23/2018 due to nausea, vomiting, and abdominal pain. Patient has been discharged from the medical floor only hours prior to re-presenting to the ED with similar concerns. Patient has a history of diabetes, gastroparesis, and depression. Psychiatric consultation was requested to address severe depression that, he is well-known to our service. Information provided by the patient is limited as he is reporting fatigue; however, is considered to be reliable. Chief Complaint "On a scale of 10, as had probably about a 7 (indicating this is a positive)." History of Present Illness Jorge Alberto De Los Santos is a 48-year-old male admitted medically on 12/23/2018 for nausea, vomiting, and abdominal pain. Patient also had inpatient admissions on 12/20/2018, having just been discharged the day he represented to the emergency room. Past medical history is significant for type 1 diabetes with gastroparesis, hypertension, chronic kidney disease. Patient has been seen multiple times on our service since August 2018 for complaints of depression. Patient had been started on sertraline, which has been titrated with each ps ychiatric consultation. Psychiatric consultation is requested this admission to evaluate for severe depression, and recommend medication adjustments as indicated. This provider attempted multiple times today to meet with the patient, who had a rather busy day with imaging. This provider was eventually able to speak with the patient; however, at that point in the day the patient verbalized fatigue. Despite being awoken from a nap, the patient is agreeable to participating in his psychiatric assessment. Patient states that his mood has improved slightly since his sertraline was titrated to a dose of 150 mg in October 2018. Patient feels that he has noticed lower anxiety and a "little mood lift" since having this dose adjusted. Patient does verbalize some ongoing depressive symptoms, difficulty sleeping, low energy, and some ongoing anxiety. Recommendation as of his last psychiatric consultation was for further titration of his sertraline as needed. This was reviewed with the patient, who is agreeable to medication changes. Risks, benefits, and possible side effects of the titration were reviewed with the patient who verbalized understanding and was agreeable with the medication change. Patient denies suicidality or any symptoms consistent with a diagnosis other than depression and anxiety. Patient denies any other psychiatric concerns at this time. Past Psychiatric History Previous Psych History: Patient has been seen several times on her psychiatric consult service for reports of depression. Has been referred for therapy, though unclear if able to maintain consistency with appointments due to chronic medical concerns. Current Psychiatric Diagnosis: Depression Previous Psych Admissions: None Do You Have Access To A Gun?: No History of Previous Suicide Attempt: No Past Medication Trials: Per previous documentation: 1. Lexapro - ineffective 2. Remeron - too sedating 3. Zoloft 4. Valium - reportedly for gastroparesis Allergies Allergy/AdvReac Type Severity Reaction Status Date / Time shellfish derived Allergy Severe anaphylaxis Verified 12/23/18 16:46 codeine Allergy Intermediate Hives Verified 12/23/18 16:46 promethazine Allergy Intermediate itchy/hives Verified 12/23/18 16:46 Home Medications Home Medications Medication Instructions Recorded Confirmed Type Humalog U-100 Insulin 1 sliding scale dose SUBCUT CONT 09/10/18 12/23/18 History atorvastatin 10 mg PO QAM 09/10/18 12/23/18 History [place] Caps 1 cap PO DAILY 12/19/18 12/23/18 History amlodipine 10 mg PO QAM 12/19/18 12/23/18 History calcium acetate See Rx Instructions .ROUTE 12/19/18 12/23/18 History .COMPLEX MDD 7 CAPSULES/DAY cholecalciferol (vitamin D3) 2,000 unit PO QAM 12/23/18 12/23/18 History [Vitamin D3] famotidine 20 mg PO QAM #30 tab 12/23/18 12/23/18 Rx furosemide [Lasix] 20 mg PO DAILY PRN 12/23/18 12/23/18 History hydralazine 25 mg PO TID 12/23/18 12/23/18 History metoclopramide HCl 5 mg PO TID 12/23/18 12/23/18 History ondansetron 4 mg PO Q6H PRN #14 tab 12/23/18 Rx prochlorperazine [Compazine] 25 mg MA DAILY PRN 12/23/18 12/23/18 History sertraline 150 mg PO QAM 12/23/18 12/23/18 History Family History Denies family history of psychiatric issues substance use or suicide Personal History Living Arrangements: Home (With his parents) 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 Taylor Higgins; [facility]). Kidney stones Peripheral neuropathy Retinopathy due to secondary diabetes Surgical History History of appendectomy H/O shoulder surgery RIGHT History of hip surgery LEFT HIP ARTHROSCOPY History of cardiac cath 10/2018= no stents, no obstructive disease (at [facility]) History of lithotripsy Permanent central venous catheter in place Permacath Family History Grandfather Myocardial infarction Grandfather (Maternal) Family history of diabetes mellitus Social History Preferred Language: Welsh Communication Ability: Effective Beliefs That Will Affect Care: None marital status: Legally Current Living Situation: Family current occupational status: employed Feels Safe at Home: Yes Smoking Status: Never smoker Tobacco Type: smokeless tobacco Second Hand Exposure: No Hx Alcohol Use: No Hx Substance Use: No Physical Exam Psychiatric: Orientation: alert, oriented x 3 and cooperative (Participation somewhat limited by fatigue) Apperance: appropriately dressed (In hospital gown) and + disheveled Thin-appearing, male tightly curled up in bed with blanket held up to his chin. Patient appears somewhat disheveled; however, level of hygiene and hydration appears adequate. Patient appears mildly uncomfortable, but no obvious distress. Eye Contact: + poor eye contact (Keeps his eyes closed for the majority of conversation) Motor Behavior: no a bnormal motor movements (Observed while laying in bed) Speech: normal rate/rhythm/volume of speech (Soft tone) Affect: + depressed affect (Also fa tigued) Mood: + depressed mood ("A little better") Thought Process: goal directed thought process and clear/coherent thought process Thought Content: reality based without delusions Suicidal Thoughts: denies suicidal thoughts and denies suicidal intent Homicidal Thoughts: denies homicidal thoughts Hallucinations: no auditory hallucinations and no visual hallucinations Cognition: attention grossly intact and language grossly intact Estimated Intelligence: consistent with education level Insight: + fair insight Judgement: + fair judgement Vital Signs (Past 24 Hours): Last Vital Signs Temp 37.0 C 12/24/18 11:44 Pulse 90 12/24/18 11:44 Resp 18 12/24/18 11:44 BP 178/90 H 12/24/18 11:44 Pulse Ox 98 12/24/18 11:44 Review of Systems Constitutional: fatigue Cardiovascular: denied Respiratory: denied Gastrointestinal: mild abdominal pain Neurological: denied Psychiatric: denies symptoms other than stated above Total of at least 10 systems reviewed, pertinent positives as above and in HPI. Results & Data Medications Administered Amlodipine Besylate (Norvasc) 10 mg PO [facility] Stop: 01/23/19 08:59 Last Admin: 12/24/18 09:27 Dose: 10 mg Documented by: [id number] Atorvastatin Calcium (Lipitor) 10 mg PO [facility] Stop: 01/23/19 08:59 Last Admin: 12/24/18 09:27 Dose: 10 mg Documented by: [id number] Calcium Acetate (Phoslo) 667 mg PO [facility] Stop: 01/23/19 07:29 Last Admin: 12/24/18 11:36 Dose: Not Given Documented by: [id number] Admin: 12/24/18 08:30 Dose: 667 mg Documented by: [id number] Famotidine (Pepcid) 20 mg PO [facility] Stop: 01/23/19 08:59 Last Admin: 12/24/18 09:27 Dose: 20 mg Documented by: [id number] Hydralazine HCl (Apresoline) 25 mg PO TID [facility] Stop: 01/22/19 22:17 Last Admin: 12/24/18 09:27 Dose: 25 mg Documented by: [id number] Admin: 12/23/18 22:49 Dose: 25 mg Documented by: [id number] Hydralazine HCl (Hydralazine Hcl) 5 mg IV Q4H PRN PRN Reason: Hypertension Stop: 01/23/19 00:17 Last Admin: 12/24/18 11:46 Dose: 5 mg Documented by: [id number] Admin: 12/24/18 00:30 Dose: 5 mg Documented by: [id number] Insulin Human Lispro (Humalog Insulin Pump) 1 ea N/A [facility]; Protocol Stop: 01/23/19 07:29 Last Admin: 12/24/18 08:30 Dose: 1 ea Documented by: [id number] Metoclopramide HCl (Reglan) 5 mg IV Q6H [facility] Stop: 01/22/19 22:59 Last Admin: 12/24/18 11:35 Dose: 5 mg Documented by: [id number] Admin: 12/24/18 05:42 Dose: 5 mg Documented by: [id number] Admin: 12/23/18 22:51 Dose: 5 mg Documented by: [id number] Ondansetron HCl (Zofran) 4 mg IV Q6H PRN PRN Reason: Nausea Stop: 01/23/19 00:16 Last Admin: 12/24/18 07:41 Dose: 4 mg Documented by: [id number] Admin: 12/24/18 00:30 Dose: 4 mg Documented by: [id number] Prochlorperazine (Compazine) 25 mg MA DAILY PRN PRN Reason: Nausea Stop: 01/22/19 22:17 Last Admin: 12/23/18 23:37 Dose: 25 mg Documented by: [id number] Sertraline HCl (Zoloft) 150 mg PO QAM [facility] Stop: 01/23/19 08:59 Last Admin: 12/24/18 09:25 Dose: 150 mg Documented by: [id number] Vitamin B Complex/Folic Acid (Nephrocaps) 1 cap PO DAILY [facility] Stop: 01/23/19 08:59 Last Admin: 12/24/18 09:28 Dose: 1 cap Documented by: [id number]
--- NOTE | 2018-12-24 15:17 | Nuclear Medicine Report ---
NM hepatobiliary CLINICAL HISTORY: intractable vomiting/nausea COMPARISON STUDY: CT scan dated 12/19/2018 FINDINGS: The patient was injected with 5.4 mCi of technetium 99m Choletec. Anterior imaging was perf ormed. Hepatic excretion appeared unremarkable. There is normal passage of activity into small bowel. The ga llbladder was first visualized on the 20 minute image. IMPRESSION: Normal study. No evidence of cystic duct obstruction Electronically signed by: Geovanny Moncada M.D. 12/24/2018 3:16 PM
[2018-12-24] MEDS ORDERED: Nursing to Pharmacy Communication ONE ×2 (16:21→16:59)
[2018-12-24] MEDS: LORazepam 0.5 MG/1 ML VIAL IV PRN (16:32)
[2018-12-24] MEDS: PROCHLORPERAZINE 25 MG SUPP PR PRN (16:32)
--- NOTE | 2018-12-24 16:56 | Consultation Report ---
DATE OF CONSULTATION: 12/24/2018 REASON FOR EVALUATION: Intractable nausea and vomiting. HISTORY OF PRESENT ILLNESS: The patient is a 48-year-old who I had seen previously with similar condition. This has been a chronic condition and problem for the patient. He has longstanding diabetes with complications including end-stage renal disease on hemodialysis and gastroparesis. The patient has had multiple evaluations at multiple medical centers, most recently at [facility]. He was judged not to be a good candidate for a gastric pacemaker and has been on erythromycin at home on a daily basis for 3 weeks and then off for a week. He feels that this was helping his nausea and vomiting, but despite this, he presents with vomiting and depression and some dehydration. There appears to be possible psychiatric overlay as well to his condition. He was endoscoped from above on 11/02/2018 and he was found to have a mild case of Manuela esophagitis, which was treated. Interestingly, the stomach was empty without any food or fluid retained there. CAT scan and HIDA scan since hospitalization here just showed some stool in the rectum and a normal gallbladder function. PAST MEDICAL HISTORY: Remarkable for end-stage renal disease from diabetes, congestive heart failure, hypertension, hyperlipidemia, depression, anxiety, has had kidney stones, peripheral neuropathy, retinopathy. He has had an appendectomy, right shoulder surgery, left hip surgery, kidney stone, lithotripsy. MEDICATIONS: At home are insulin, atorvastatin, renal caps, amlodipine, calcium, vitamin D, famotidine, Lasix, hydralazine, metoclopramide, ondansetron, Compazine and sertraline. ALLERGIES: SHELLFISH, CODEINE AND PROMETHAZINE. FAMILY HISTORY: Negative for GI disease. SOCIAL HISTORY: The patient is legally . He does not smoke. He does not use alcohol. REVIEW OF SYSTEMS: Positive for nausea and vomiting. The remainder is negative. PHYSICAL EXAMINATION: GENERAL: The patient is lying on his right side with an emesis basin under his chin, retching. He is thin and disheveled. VITAL SIGNS: Show blood pressure 180/100, pulse 70, respirations 20. He is afebrile. ABDOMEN: Shows an umbilical scar and he has insulin pump implanted in the left side of the abdomen. Bowel sounds are hypoactive at this time. There are no discrete areas of tenderness. IMPRESSION AND PLAN: The patient has intractable vomiting which is a chronic problem for him. He has been through multiple evaluations and therapeutic trials. At home he is on Compazine, Zofran and erythromycin. He is not keeping any of these medications down currently and is getting IV Reglan currently and Compazine as needed as well as Zofran as needed IV. Unfortunately, I do not really have any easy solutions to this problem. Sometimes using a benzodiazepine will sometimes relax the patient and break some of the nausea cycle. I am curious as to the results of his psychiatric evaluation. I believe there is probably some psychiatric component to his symptoms as well. I do not think repeating an endoscopy at this time would be of any benefit.
--- NOTE | 2018-12-24 19:17 | Nephrology Progress Note ---
Date of Service December 24, 2018 Assessment & Plan (1) ESRD (end stage renal disease): I was reconsulted on this pt who came back to hospital w/ N/V shortly after d/c yesterday after admission for same N/V. I discussed his care w/ Dr Townsend and arranged for his dialysis to be moved to tomorrow to accommodate HIDA scan today. I went by the pt's room 3 times between 215 -320 this afternoon but he was still at the HIDA scan. Will defer consult to my partner for tomorrow as I was unable to evaluate pt in person today. Present on Admission?: Yes Results & Data Vital Signs (Past 12 Hours) Vital Signs Temp Pulse Pulse Pulse Resp BP Pulse Ox 12/24/18 16:38 148/79 H 12/24/18 15:33 36.5 C 96 H 18 172/96 H 97 12/24/18 13:55 91 H 166/87 H 12/24/18 11:44 37.0 C 90 18 178/90 H 98 12/24/18 08:19 36.6 C 79 16 178/90 H 97
--- NOTE | 2018-12-24 20:43 | Hospitalist Progress Note ---
Date of Service December 24, 2018 Assessment & Plan (1) Intractable vomiting: acute/chronic. This issue has been recurrent for some time. Had significant difficulties with nausea/emesis/dry heaves in October 2018 admission and his most recent admission. During the prior admission he had no nausea/emesis for 2 days prior to discharge. I am unclear what precipitated the recurrent vomiting. His most pressing symptom is the nausea. It is refractory to most anti-emetics. He has seen a gastroparesis specialist in [place] and was placed on erythromycin. This has been marginally effective. He does not have a migraine history to suggest cyclic vomiting syndrome. Work-up to date - multiple CTs, RUQ u/s, CT head, cortisol, TSH, cardiac cath, EGD (10/2018), etc. All negative or normal. HIDA scan today NORMAL. He remains on IV reglan q6h. For refractory symptoms will use IV ativan. Allow clears if tolerated. I suspect a strong psychogenic component to his symptoms. He appears to be suffering from major depression - see below. Anxiety also playing a role. Consider remeron? Appreciate GI, nephrology and psychiatry consults. Present on Admission?: Yes (2) Gastroparesis: see discussion above in "intractable vomiting" Present on Admission?: Yes (3) Depression: Appreciate psych consultation. Increase zoloft to 200mg daily per their recommendations. Present on Admission?: Yes (4) ESRD (end stage renal disease): On HD //. Spoke with Dr Higgins from [facility] nephrology -- HD deferred until tomorrow AM so that we can obtain his HIDA scan today. Present on Admission?: Yes (5) HTN (hypertension): added hydralazine TID to his daily amlodipine. Present on Admission?: Yes (6) Diabetes mellitus type 1, with complication, on long term care administrator insulin pump: Remains on his insulin pump. Glycemic control is adequate at this time. No evidence of DKA. Present on Admission?: Yes (7) DVT prophylaxis: add heparin 5000 BID tomorrow will obtain PT, OT evals observe Subjective upon entering the room the patient was sleeping. it was the middle of the day and the blinds were drawn. he awoke easily. when I asked him about the events of yesterday (was d/c from the hospital, he then went to a pre-op appt for upcoming dialysis fistula creation, and then proceeded home) he stated "I had a relapse." he stated when he arrived home at his parent's house in [place] he had nausea, then proceeded to vomit profusely. he was only home 2 hours. he admits to some anxiety during the preop appt for the fistula creation. denies any abdominal pain, chest pain, dyspnea, cough. Review of Systems Constitutional: + anorexia; no fever and no chills Respiratory: no cough Gastrointestinal: + belching and + vomiting; no abdominal pain, no hematemesis, no cramping, no excessive flatulence, no change in stools, no diarrhea/loose stools, no fecal incontinence, no blood in stools and no melena Physical Exam Constitutional: + thin; no acute distress and no altered mental status flat affect ENMT: Mouth: + dry oral mucous membranes Respiratory: normal respiratory effort, lungs clear to auscultation Cardiovascular: Rate/Rhythm: regular rate and regular rhythm Heart Sounds: normal S1 and normal S2; no murmur Vessels: posterior tibial pulses present and dorsalis pedis pulses present; no JVD Extremities: no edema Gastrointestinal (Abdomen): normal bowel sounds, soft, nontender, no hepatosplenomegaly Skin: dialysis catheter right upper chest - clean, no drainage Psychiatric: Orientation: alert and oriented x 3 Affect: + depressed affect and + flat affect Results & Data Vital Signs (Past 12 Hours) Vital Signs Temp Pulse Pulse Pulse Resp BP Pulse Ox 12/24/18 16:38 148/79 H 12/24/18 15:33 36.5 C 96 H 18 172/96 H 97 12/24/18 13:55 91 H 166/87 H 12/24/18 11:44 37.0 C 90 18 178/90 H 98 Laboratory Results Laboratory Results - last 24 hr 12/24/18 12/24/18 12/24/18 06:17 08:28 12:03 Sodium 134 L Potassium 3.6 Chloride 101 Carbon Dioxide 21 Anion Gap 12.0 H BUN 61 H Creatinine 6.58 H* Est Cr Clr Drug Dosing 11.4 Est GFR ( Amer) 10.5 Est GFR (Non-Af Amer) 9.1 BUN/Creatinine Ratio 9.3 L Glucose 152 H POC Glucose 175 H 119 H Calcium 7.8 L Magnesium 2.4 12/24/18 12/24/18 12/24/18 12:50 17:06 20:32 Sodium Potassium Chloride Carbon Dioxide Anion Gap BUN Creatinine Est Cr Clr Drug Dosing Est GFR ( Amer) Est GFR (Non-Af Amer) BUN/Creatinine Ratio Glucose POC Glucose 118 H 187 H 113 H Calcium Magnesium PG Care Time/CCT Total # of Minutes Spent Total Time Spent with Patient: Total time spent is greater than 50% in coordination of care (as documented) at patient's floor/unit and/or counseling patient: (1) Intractable vomiting Nausea presence: unspecified Vomiting type: unspecified Qualified Code(s): R11.10 - Vomiting, unspecified (2) Depression Depression Type: major depressive disorder Major depression recurrence: unspecified whether recurrent Active/Remission status: currently active Major depression episode severity: severe Psychotic features: without psychotic features Qualified Code(s): F32.2 - Major depressive disorder, single episode, severe without psychotic features (3) HTN (hypertension) Hypertension type: essential hypertension Qualified Code(s): I10 - Essential (primary) hypertension
[2018-12-24] MEDS: HEPARIN SOD (PORCINE) 1000 UNIT/ML 10 ML VIAL IV SCH ×2 (22:22→22:23)
[2018-12-25] MEDS: METOCLOPRAMIDE HCL INJ 5 MG/ML 2 ML VIAL IV SCH ×2 (04:46→14:07)
[2018-12-25] MEDS ORDERED: HEPARIN SOD (PORCINE) 1000 UNIT/ML 10 ML VIAL IV SCH (08:00)
[2018-12-25] MEDS: CALCIUM ACETATE 667 MG CAP PO SCH ×4 (08:33→21:00)
--- NOTE | 2018-12-25 10:57 | Progress Note ---
DATE: 12/25/2018 REASON FOR EVALUATION: Nausea and vomiting. HISTORY OF PRESENT ILLNESS: The patient was seen in dialysis today. The patient reports that he went all night without any nausea or vomiting and ate solid food for breakfast today without any adverse effects. He was seen by Psychiatry, who recommended increasing his sertraline to 200 mg a day which is the maximum dose. He also received a dose of lorazepam last night, which helped him sleep. Currently, he is awake, alert and not complaining of any nausea or abdominal pain. PHYSICAL EXAMINATION: GENERAL: The patient appears in no acute distress. VITAL SIGNS: Show blood pressure 141/85, pulse 82 and regular, respirations 15, temperature is 37.1, O2 saturation on room air is 96%. NEUROLOGIC: Nonfocal. IMPRESSION AND PLAN: The patient has no nausea or vomiting today and ate a normal breakfast, not sure this is related to the medication or just a better sense of well-being psychologically. We will continue to follow him, but do not have any obvious other suggestions at this time.
[2018-12-25] MEDS: NEPHROCAPS PO SCH (14:02)
[2018-12-25] MEDS: FAMOTIDINE 20 MG TAB PO SCH (14:02)
[2018-12-25] MEDS: SERTRALINE HCL 100 MG TABLET PO SCH (14:04)
[2018-12-25] MEDS: AMLODIPINE BESYLATE 5 MG TAB PO SCH (14:04)
[2018-12-25] MEDS: ATORVASTATIN 10 MG TAB PO SCH (14:04)
[2018-12-25] MEDS: HEPARIN SOD (PORCINE) 1000 UNIT/ML 10 ML VIAL IV SCH ×2 (14:05→14:08)
--- NOTE | 2018-12-25 14:51 | Nephrology Progress Note ---
Date of Service December 25, 2018 Assessment & Plan (1) ESRD (end stage renal disease): I was reconsulted on this pt who came back to hospital w/ N/V shortly after d/c yesterday after admission for same N/V. I discussed his care w/ Dr Townsend and arranged for his dialysis to be moved to tomorrow to accommodate HIDA scan today. I went by the pt's room 3 times between 215 -320 this afternoon but he was still at the HIDA scan. Will defer consult to my partner for tomorrow as I was unable to evaluate pt in person today. Subjective ESRD patient seen and examined while on dialysis. He denies any SOB. No vomiting this morning. He is tolerating HD well. BP stable Review of Systems Review of Systems: All systems reviewed & are unremarkable except as noted in HPI & below Physical Exam Physical Exam: General exam: Appears comfortable, no acute distress HEENT: Pupils are equal and reactive to light Neck: No JVD, neck is supple trachea is midline Respiratory system: Clear breath sounds bilaterally. Gastrointestinal: Abdomen is soft, non distended, non tender, bowel sounds are present CVS: Regular rate and rhythm. No murmurs, rubs or gallops Musculoskeletal: No joint or muscle tenderness Extremities: Non tender, no edema, peripheral pulses are present Neuro: Oriented, no tremors, no focal neurological deficits Skin: No rashes Access: right CVC Results & Data Vital Signs (Past 12 Hours) Vital Signs Temp Pulse Pulse Resp BP Pulse Ox 12/25/18 13:59 37 C 83 16 162/90 H 97 12/25/18 13:32 37.1 C 63 109/56 L 12/25/18 07:07 37.1 C 82 15 141/85 H 96 Laboratory Results Laboratory Results - last 24 hr 12/24/18 12/24/18 12/25/18 17:06 20:32 08:16 POC Glucose 187 H 113 H 69 L* 12/25/18 12/25/18 12/25/18 08:17 08:32 13:52 POC Glucose 68 L* 112 H 137 H
--- NOTE | 2018-12-25 14:58 | Nephrology Consultation ---
Date of Consultation December 25, 2018 Assessment & Plan (1) ESRD (end stage renal disease): Patient with ESRD on HD MWF at [facility]. Last HD was on thursday uneventful. He is tolerating HD well this morning. BP is stable. Target UF 2 litres. Next HD Thursday. (2) Anemia: Patient with anemia of renal disease. Hb is at target. No role for FLOR (3) Nausea and vomiting: Likely due to gastroparesis. Ongoing work up for other etiologies. Will minimize UF during HD. Conitnue supportive management for GI symptoms (4) HTN (hypertension): BP is above target likely due to discomfort with GI symptoms. Continue amloc and hydralazine History of Present Illness Reason for Consultation: ESRD and vomiting Requesting Physician: Guevara Townsend Attending Physician: Guevara Townsend History of Present Illness This is a 48 y/o m with a history of DMI, HTN, HLD, systolic CHF, ESRD on HD MWF at [facility], severe gastroparesis with intractable vomiting, severe depression who was readmitted on 12/23 for vomiting. The pt was discharged on 12/23 and readmitted the same day. His last HD was on Thursday. he has a CVC. He is being worked for cholecystitis. This morning, he feels better. No vomiting. No SOB or abdominal pain. I initially saw the patient in his room in consultation. I later returned to see the patient in the dialysis unit. He was seen and examined while on dialysis. Tolerating HD well. BP stable. Allergies Allergy/AdvReac Type Severity Reaction Status Date / Time shellfish derived Allergy Severe anaphylaxis Verified 12/23/18 16:46 codeine Allergy Intermediate Hives Verified 12/23/18 16:46 promethazine Allergy Intermediate itchy/hives Verified 12/23/18 16:46 Home Medications Home Medications Medication Instructions Recorded Confirmed Type Humalog U-100 Insulin 1 sliding scale dose SUBCUT CONT 09/10/18 12/23/18 History atorvastatin 10 mg PO QAM 09/10/18 12/23/18 History Chris Caps 1 cap PO DAILY 12/19/18 12/23/18 History amlodipine 10 mg PO QAM 12/19/18 12/23/18 History calcium acetate See Rx Instructions .ROUTE 12/19/18 12/23/18 History .COMPLEX MDD 7 CAPSULES/DAY cholecalciferol (vitamin D3) 2,000 unit PO QAM 12/23/18 12/23/18 History [Vitamin D3] famotidine 20 mg PO QAM #30 tab 12/23/18 12/23/18 Rx furosemide [Lasix] 20 mg PO DAILY PRN 12/23/18 12/23/18 History hydralazine 25 mg PO TID 12/23/18 12/23/18 History metoclopramide HCl 5 mg PO TID 12/23/18 12/23/18 History ondansetron 4 mg PO Q6H PRN #14 tab 12/23/18 Rx prochlorperazine [Compazine] 25 mg [place] DAILY PRN 12/23/18 12/23/18 History sertraline 150 mg PO QAM 12/23/18 12/23/18 History Patient History Medical History Acid reflux Hypertension Type I diabetes mellitus Insulin pump (diagnosed at age 31) Gastroparesis due to DM Depression Anemia Anxiety CAD (coronary artery disease) mild, non-obstructive CAD per 10/2018 cardiac cath ESRD (end stage renal disease) Hemodialysis M,W,F (Follows with Dr. Taylor Higgins; [facility]). Kidney stones Peripheral neuropathy Retinopathy due to secondary diabetes Surgical History History of appendectomy H/O shoulder surgery RIGHT History of hip surgery LEFT HIP ARTHROSCOPY History of cardiac cath 10/2018= no stents, no obstructive disease (at [facility]) History of lithotripsy Permanent central venous catheter in place Permacath Family History Grandfather Myocardial infarction Grandfather (Maternal) Family history of diabetes mellitus Social History Preferred Language: [place]ib[place]ian Communication Ability: Effective Beliefs That Will Affect Care: Episcopal (Confucianism, attends catholic when physically able) marital status: Legally Current Living Situation: Family current occupational status: employed Feels Safe at Home: Yes Smoking Status: Never smoker Tobacco Type: smokeless tobacco Second Hand Exposure: No Hx Alcohol Use: No Hx Substance Use: No Review of Systems Review of Systems: All systems reviewed & are unremarkable except as noted in HPI & below Physical Exam Physical Exam: General exam: Appears comfortable, no acute distress HEENT: Pupils are equal and reactive to light Neck: No JVD, neck is supple trachea is midline Respiratory system: Clear breath sounds bilaterally. Gastrointestinal: Abdomen is soft, non distended, non tender, bowel sounds are present CVS: Regular rate and rhythm. No murmurs, rubs or gallops Musculoskeletal: No joint or muscle tenderness Extremities: Non tender, no edema, peripheral pulses are present Neuro: Oriented, no tremors, no focal neurological deficits Skin: No rashes Access: right CVC Results & Data Vital Signs (Past 12 Hours) Vital Signs Temp Pulse Pulse Resp BP Pulse Ox 12/25/18 13:59 37 C 83 16 162/90 H 97 12/25/18 13:32 37.1 C 63 109/56 L 12/25/18 07:07 37.1 C 82 15 141/85 H 96 Laboratory Results Laboratory Results - last 24 hr 12/24/18 12/24/18 12/25/18 17:06 20:32 08:16 POC Glucose 187 H 113 H 69 L* 12/25/18 12/25/18 12/25/18 08:17 08:32 13:52 POC Glucose 68 L* 112 H 137 H (1) Anemia Anemia type: due to chronic kidney disease Chronic kidney disease stage: on chronic dialysis Qualified Code(s): N18.6 - End stage renal disease; D63.1 - Anemia in chronic kidney disease; Z99.2 - Dependence on renal dialysis (2) Nausea and vomiting Vomiting type: unspecified Vomiting Intractability: intractable Qualified Code(s): R11.2 - Nausea with vomiting, unspecified (3) HTN (hypertension) Hypertension type: essential hypertension Qualified Code(s): I10 - Essential (primary) hypertension
[2018-12-25] MEDS: METOCLOPRAMIDE HCL 5 MG TABLET PO SCH (18:18)
--- NOTE | 2018-12-25 18:26 | Hospitalist Progress Note ---
Date of Service December 25, 2018 Assessment & Plan (1) Intractable vomiting: acute/chronic. RESOLVED. IV reglan and supportive care measures was all it took. He is markedly better today. This issue has been recurrent for some time. Had significant difficulties with nausea/emesis/dry heaves in October 2018 admission and his most recent admission. During the prior admission he had no nausea/emesis for 2 days prior to discharge. I am unclear what precipitated the recurrent vomiting leading to this re- admission. His most pressing symptom is the nausea. It is refractory to most anti-emetics. He has seen a gastroparesis specialist in [place] and was placed on erythromycin. This has been marginally effective. He does not have a migraine history to suggest cyclic vomiting syndrome. Work-up to date - multiple CTs, RUQ u/s, CT head, cortisol, TSH, cardiac cath, EGD (10/2018), etc. All negative or normal. HIDA scan also NORMAL. I suspect a strong psychogenic component to his symptoms. He is suffering from major depression and anxiety. Appreciate GI, nephrology and psychiatry consults. Since N/V are resolved --- advance diet to regular T1DM diet. Change IV reglan back to PO reglan 5mg AC. Ativan prn. counseled him ativan will be for short term use only -- it is NOT a good long- term solution to his GI issues & anxiety. (2) Gastroparesis: see discussion above in "intractable vomiting" (3) Depression: Appreciate psych consultation. Increased zoloft to 200mg daily per their recommendations. Has f/u with [facility] in the next 2 weeks post-discharge -- parents confirmed such. Also has counseling scheduled for sometime this week. (4) ESRD (end stage renal disease): On HD M/W/F. Appreciate [facility] nephrology assistance. Yesterday's HD session was deferred until this AM so he could complete his HIDA scan. Volume status is normal today. (5) HTN (hypertension): added hydralazine TID to his daily amlodipine this admission. BPs improving. (6) Diabetes mellitus type 1, with complication, on continuous churn buttermaker insulin pump: Remains on his insulin pump. Glycemic control is adequate at this time. Had low this am - now resolved. If he has recurrent lows then adjust basal settings. No evidence of DKA. (7) DVT prophylaxis: ambulation, SCDs hopefully d/c home in am on Thursday Subjective I saw the patient post-HD today in his room. He was in EXCELLENT spirits -- the best I have ever seen him in months -- and asked to go home. He ate 100% of his lunch tray (full liquids) following HD. He did not have nausea or emesis. His BSGs have been <200 on his pump. He was quite talkative today, telling me about his children and life in general. I spoke with his parents earlier today. They confirmed that [facility] is setting up an appointment for him in the next 1-2 weeks for his depression management. They both agree he is severely depressed. Patient also reports he slept very well last night. Review of Systems Respiratory: no cough, no dyspnea and no dyspnea on exertion Cardiovascular: no chest pain Gastrointestinal: no abdominal pain, no nausea, no vomiting, no constipation and no diarrhea/loose stools Physical Exam Constitutional: + thin; no acute distress and no altered mental status best I have seen him in months ! ENMT: external ear and nose normal, oropharynx normal Respiratory: normal respiratory effort, lungs clear to auscultation Cardiovascular: Rate/Rhythm: regular rate and regular rhythm Heart Sounds: normal S1 and normal S2; no murmur Vessels: posterior tibial pulses present and dorsalis pedis pulses present; no JVD Extremities: no edema Gastrointestinal (Abdomen): normal bowel sounds, soft, nontender, no hepatosplenomegaly Psychiatric: Orientation: alert and oriented x 3 affect improved today Results & Data Vital Signs (Past 12 Hours) Vital Signs Temp Pulse Pulse Pulse Resp BP Pulse Ox 12/25/18 16:39 84 151/82 H 12/25/18 16:02 36.9 C 92 H 20 170/95 H 97 12/25/18 13:59 37 C 83 16 162/90 H 97 12/25/18 13:32 37.1 C 63 109/56 L 12/25/18 07:07 37.1 C 82 15 141/85 H 96 Laboratory Results Laboratory Results - last 24 hr 12/24/18 12/25/18 12/25/18 20:32 08:16 08:17 POC Glucose 113 H 69 L* 68 L* 12/25/18 12/25/18 08:32 13:52 POC Glucose 112 H 137 H Diagnostic Findings HIDA scan negative PG Care Time/CCT Total # of Minutes Spent Total Time Spent with Patient: Total time spent is greater than 50% in coordination of care (as documented) at patient's floor/unit and/or counseling patient: (1) Depression Active/Remission status: currently active Depression Type: major depressive disorder Major depression episode severity: severe Major depression recurrence: unspecified whether recurrent Psychotic features: without psychotic features Qualified Code(s): F32.2 - Major depressive disorder, single episode, severe without psychotic features (2) Intractable vomiting Nausea presence: unspecified Vomiting type: unspecified Qualified Code(s): R11.10 - Vomiting, unspecified (3) HTN (hypertension) Hypertension type: essential hypertension Qualified Code(s): I10 - Essential (primary) hypertension
[2018-12-26] MEDS: ONDANSETRON INJ 2 MG/ML 2 ML VIAL IV PRN (06:15)
[2018-12-26] MEDS: PROCHLORPERAZINE 25 MG SUPP PR PRN (07:07)
[2018-12-26] MEDS: LORazepam 0.5 MG/1 ML VIAL IV PRN (07:56)
--- NOTE | 2018-12-26 10:17 | Nephrology Progress Note ---
Date of Service December 26, 2018 Assessment & Plan (1) ESRD (end stage renal disease): Patient with ESRD on HD MWF at [facility]. Patient tolerated dialysis well yesterday. Next dialysis will be on Thursday. We will plan 4 hours of dialysis and target UF of 1-2 L. (2) Anemia: Patient with anemia of renal disease. Hb is at target. No role for FLOR (3) Nausea and vomiting: Likely due to gastroparesis. Ongoing work up for other etiologies. Will minimize UF during HD. Continue supportive management for GI symptoms (4) HTN (hypertension): BP is above target likely due to discomfort with GI symptoms. Continue amloc and hydralazine Subjective ESRD patient seen in follow-up. He is complaining of nausea and vomiting this morning. He was actively vomiting during my visit. He tolerated dialysis yesterday. No shortness of breath. Blood pressure is on the high side. Review of Systems Review of Systems: All systems reviewed & are unremarkable except as noted in HPI & below Physical Exam Physical Exam: General exam: Appears comfortable, no acute distress HEENT: Pupils are equal and reactive to light Neck: No JVD, neck is supple trachea is midline Respiratory system: Clear breath sounds bilaterally. Gastrointestinal: Abdomen is soft, non distended, non tender, bowel sounds are present CVS: Regular rate and rhythm. No murmurs, rubs or gallops Musculoskeletal: No joint or muscle tenderness Extremities: Non tender, no edema, peripheral pulses are present Neuro: Oriented, no tremors, no focal neurological deficits Skin: No rashes Access: Tunneled dialysis catheter. Results & Data Vital Signs (Past 12 Hours) Vital Signs Temp Pulse Pulse Resp BP Pulse Ox 12/26/18 09:19 168/93 H 12/26/18 07:17 37.2 C 93 H 16 214/116 H 95 12/25/18 23:01 37.2 C 60 16 161/90 H 93 Laboratory Results Laboratory Results - last 24 hr 12/25/18 12/25/18 12/26/18 13:52 20:43 08:04 POC Glucose 137 H 239 H 191 H (1) Anemia Anemia type: due to chronic kidney disease Chronic kidney disease stage: on chronic dialysis Qualified Code(s): N18.6 - End stage renal disease; D63.1 - Anemia in chronic kidney disease; Z99.2 - Dependence on renal dialysis (2) Nausea and vomiting Vomiting type: unspecified Vomiting Intractability: intractable Qualified Code(s): R11.2 - Nausea with vomiting, unspecified (3) HTN (hypertension) Hypertension type: essential hypertension Qualified Code(s): I10 - Essential (primary) hypertension
[2018-12-26] MEDS ORDERED: LORazepam 0.5 MG/1 ML VIAL IV ONE (10:45)
[2018-12-26] MEDS: METOCLOPRAMIDE HCL 5 MG TABLET PO SCH ×3 (11:33→19:09)
[2018-12-26] MEDS: CALCIUM ACETATE 667 MG CAP PO SCH ×4 (11:33→20:27)
[2018-12-26] MEDS: ATORVASTATIN 10 MG TAB PO SCH (11:34)
[2018-12-26] MEDS: FAMOTIDINE 20 MG TAB PO SCH (11:34)
[2018-12-26] MEDS: AMLODIPINE BESYLATE 5 MG TAB PO SCH (11:34)
[2018-12-26] MEDS: SERTRALINE HCL 100 MG TABLET PO SCH (11:34)
[2018-12-26] MEDS: NEPHROCAPS PO SCH (11:34)
--- NOTE | 2018-12-26 13:32 | XRay Report ---
XR abdomen 2V w PA chest CLINICAL HISTORY: intractable vomiting nausea COMPARISON STUDY: 12/23/2018 FINDINGS: The soft tissues, psoas shadows, renal outlines and intestinal gas pattern appear normal. T here is no evidence for bowel obstruction. There is no evidence for free intraperitoneal air. No abno rmal abdominal calcifications are seen. A frontal view of the chest was performed and is unremarkable . IMPRESSION: Normal study. The above report was generated using voice recognition software. It may contain grammatical, syntax or spelling errors. Electronically signed by: Rick Nguyen M.D. 12/26/2018 1:31 PM
[2018-12-26] MEDS: HEPARIN SOD 5,000 UNIT/0.5 ML VIAL SQ SCH ×2 (13:41→20:27)
[2018-12-26] MEDS ORDERED: FOSAPREPITANT DIMEGLUMINE 150 MG in SODIUM CHLORIDE 0.9% 145 ML IV SCH (14:30)
--- NOTE | 2018-12-26 15:08 | Progress Note ---
DATE: 12/26/2018 SUBJECTIVE: The patient after doing well yesterday and eating without vomiting or nausea, today is nauseated and retching again. I spoke with Dr. Townsend, the hospitalist and he was in conversation with a parts person at [facility] where he has been seen before and they recommended a different form of antiemetic that was given over 20 minutes IV and supposed to last for 5 days. We will give this a try and see if it works. There are willing to follow up with the patient in [facility] either as an inpatient or outpatient if it is not successful. I went to see the patient and on physical exam, he was sleeping, but awoke easily. He was complaining of nausea. His blood pressure is 168/93, pulse 93. Abdomen is mildly diffusely tender. IMPRESSION AND PLAN: The patient has recurrent nausea and vomiting. We will try the new version of antiemetic and see if it offers any relief.
--- NOTE | 2018-12-26 15:43 | Hospitalist Progress Note ---
Date of Service December 26, 2018 Assessment & Plan (1) Intractable vomiting: Acute/chronic. Yesterday all GI symptoms had RESOLVED. He felt "great" on 12/25/18, ate dinner w/o nausea/emesis, etc. This AM he has recurrent symptoms once again without any specific inciting factor. He had the exact same pattern last admission - ate/drank well for 2 days prior to admission, and on day of discharge began to have nausea/emesis/dry heaves again. This issue has been recurrent for some time. Had significant difficulties with nausea/emesis/dry heaves in October 2018 admission and his most recent admission earlier this month. His nausea/vomiting is refractory to most anti-emetics. He saw Dr Prashanth Martin, gastroparesis specialist at [facility] in [place], earlier this spring and was placed on erythromycin. This was marginally effective. He does not have a migraine history to suggest cyclic vomiting syndrome. Work-up to date - multiple CTs, RUQ u/s, CT head, cortisol, TSH, cardiac cath, EGD (10/2018), HIDA scan, x-rays. All negative or normal. I suspect a strong psychogenic component to his symptoms. He is suffering from major depression and anxiety. I spoke with Dr Juárez this am; we both agreed we are beginning to exhaust his treatment options. Thus, I called [facility] and spoke with the on-call GI physician, Dr Guevara Hurst. He recommended aprepitant. Called and spoke with our pharmacist - we have IV and PO formulations of such. Will give fosaprepitant 150mg IV x 1. It is not renally excreted so no dose adjustment needed for his ESRD status. It lasts 3-[address] Hurst recommended the following - 1. if symptoms rowan with fosaprepitant then Ivan can f/u with Dr Martin in the GI clinic at [facility] in the next week as outpatient 2. if symptoms DO NOT rowan or worsen we can call back to [facility] and discuss his care further with their GI team Fosaprepitant does NOT cause QT prolongation. Abdominal x-rays today did NOT show ileus, gastric outlet obstruction or SBO. Change diet back to clears. (2) Gastroparesis: see discussion above in "intractable vomiting" GI physician at [facility] -- Dr Prashanth Martin I do not believe that all of his nausea/dry heaves/etc is due to gastroparesis as he has these symptoms even when he is fasting. Will obtain MRI brain to r/o [employer] causes of his nausea/emesis. CT head in recent admission, however, was normal. (3) Depression: Appreciate psych consultation. Increased zoloft to 200mg daily per their recommendations. Has f/u with [facility] in the next 2 weeks post-discharge -- parents confirmed such. Also has counseling scheduled for sometime this week as well. I am heavily concerned that depression/anxiety is playing large role in his symptoms. Await MRI brain. (4) ESRD (end stage renal disease): On HD M//. Appreciate [facility] nephrology assistance. Thursday's HD session was deferred until yesterday so he could complete his HIDA scan. Volume status today -- looks mildly volume contracted. (5) HTN (hypertension): Hydralazine TID added to his daily amlodipine this admission. However, BPs continue to be quite high. Uncertain if PO meds are absorbing well. Consider nitropatch or catapress patch to ensure steady state of BP meds. (6) Diabetes mellitus type 1, with complication, on shelter insulin pump: Remains on his insulin pump. Glycemic control is adequate at this time. No evidence of DKA to date. (7) Dehydration: give 500cc of NS over 10 hours only. patient appears clinically volume contracted. (8) DVT prophylaxis: heparin 5000 BID total time today coordinating care, calling [facility], speaking with pharmacy, etc -- 75 minutes. Subjective Ivan had a very good day yesterday. Was in excellent spirits, ate dinner last night (Had some sort of beef dinner) in its entirety, and had no nausea/emesis following that meal. Went to bed feeling great. Slept well last night. He states he woke up at 0600 and then at 0630 developed nausea. This was followed by dry heaves. The dry heaves have lasted all day today despite compazine, reglan, zofran and 2 doses of IV ativan. His BP was quite elevated this am -- the BPs improved following ativan administration. I asked Ivan this am he felt anxious about leaving the hospital and he stated "a little bit." He continues to deny headache, chest pain, dyspnea, cough, abdominal pain, diarrhea. Last bowel movement was yesterday. He states the nausea "comes on when I move" but he denies vertigo. Review of Systems Constitutional: no fever and no chills Respiratory: no cough Cardiovascular: no chest pain Gastrointestinal: + nausea, + vomiting and + hematemesis (emesis bag contains slightly pink clear fluid); no constipation and no blood in stools Psychiatric: + depression and + anxiety Physical Exam Constitutional: + acute distress (dry heaving ), + ill appearing and + thin; + not appropriately hydrated and no altered mental status ENMT: external ear and nose normal, oropharynx normal Mouth: + dry oral mucous membranes Respiratory: normal respiratory effort, lungs clear to auscultation Cardiovascular: Rate/Rhythm: regular rate and regular rhythm Heart Sounds: normal S1 and normal S2; no murmur Vessels: posterior tibial pulses present and dorsalis pedis pulses present; no JVD Extremities: no edema Gastrointestinal (Abdomen): normal bowel sounds, soft, nontender, no hepatosplenomegaly Psychiatric: Orientation: alert and oriented x 3 Affect: + depressed affect and + flat affect Results & Data Vital Signs (Past 12 Hours) Vital Signs Temp Pulse Resp BP Pulse Ox 12/26/18 15:31 37.2 C 93 H 16 199/112 H 95 12/26/18 09:19 168/93 H 12/26/18 07:17 37.2 C 93 H 16 214/116 H 95 Laboratory Results Laboratory Results - last 24 hr 12/25/18 12/26/18 12/26/18 20:43 08:04 12:21 POC Glucose 239 H 191 H 121 H Diagnostic Findings abdominal x-rays -- normal bowel gas pattern PG Care Time/CCT Total # of Minutes Spent Total Time Spent with Patient: Total time spent is greater than 50% in coordination of care (as documented) at patient's floor/unit and/or counseling patient: (1) Intractable vomiting Nausea presence: unspecified Vomiting type: unspecified Qualified Code(s): R11.10 - Vomiting, unspecified (2) Depression Depression Type: major depressive disorder Major depression recurrence: unspecified whether recurrent Active/Remission status: currently active Major depression episode severity: severe Psychotic features: without psychotic features Qualified Code(s): F32.2 - Major depressive disorder, single episode, severe without psychotic features (3) HTN (hypertension) Hypertension type: essential hypertension Qualified Code(s): I10 - Essential (primary) hypertension
[2018-12-26] MEDS ORDERED: SODIUM CHLORIDE 0.9% 500 ML IV SCH ×2 (16:00→23:45)
[2018-12-26] MEDS ORDERED: LORazepam 0.5 MG/1 ML VIAL IV PRN (16:50)
[2018-12-26] MEDS ORDERED: Nursing to Pharmacy Communication ONE (17:30)
[2018-12-26 17:55] LABS: Hematocrit (blood only) 39.5 % (42-52); Hemoglobin 13.3 g/dL (14.0-18.0); Mean Corpuscular Hgb Conc 33.7 g/dL (32-36); Mean Corpuscular Volume 91.6 fL (80-100); Mean Platelet Volume 9.8 fL (7.4-10.4); Platelet Count 213 K/uL (130-400); RDW Coefficient of Variation 13.9 % (11.5-14.5); RDW Standard Deviation 46.4 fL (36.4-46.3); Red Blood Count 4.31 M/uL (4.7-6.1); White Blood Count 10.06 K/uL (4.8-10.8)
[2018-12-26 18:22] LABS: BUN Creatinine Ratio 7.8 (10-20); Calcium 8.6 mg/dl (8.5-10.1); Creatinine Clr Calc Pharmacy 12.7 ml/min; Est GFR (African American) 12.3; Est GFR (Non-African American) 10.6; Magnesium 2.3 mg/dl (1.8-2.4); Potassium 3.7 mmol/L (3.5-5.1)
[2018-12-26] MEDS: METOCLOPRAMIDE HCL INJ 5 MG/ML 2 ML VIAL IV SCH (19:10)
[2018-12-27] MEDS: METOCLOPRAMIDE HCL INJ 5 MG/ML 2 ML VIAL IV SCH ×5 (00:21→23:16)
[2018-12-27 07:29] LABS: Basophils # (auto) 0.03 K/uL (0-0.2); Basophils % (auto) 0.2 %; Eosinophils # (auto) 0.01 K/uL (0-0.5); Eosinophils % (auto) 0.1 %; Hematocrit (blood only) 37.5 % (42-52); Hemoglobin 11.9 g/dL (14.0-18.0); Immature Granulocytes # (auto) 0.06 K/uL (0.00-0.02); Immature Granulocytes % (auto) 0.5 %; Lymphocytes # (auto) 1.46 K/uL (1.2-3.4); Lymphocytes % (auto) 11.2 %; Mean Corpuscular Hgb Conc 31.7 g/dL (32-36); Mean Corpuscular Volume 95.4 fL (80-100); Mean Platelet Volume 10.6 fL (7.4-10.4); Monocytes # (auto) 1.27 K/uL (0.11-0.59); Monocytes % (auto) 9.7 %; Neutrophils # (auto) 10.24 K/uL (1.4-6.5); Neutrophils % (auto) 78.3 %; Platelet Count 228 K/uL (130-400); RDW Coefficient of Variation 14.1 % (11.5-14.5); RDW Standard Deviation 49.4 fL (36.4-46.3); Red Blood Count 3.93 M/uL (4.7-6.1); White Blood Count 13.07 K/uL (4.8-10.8)
[2018-12-27 08:14] LABS: BUN Creatinine Ratio 9.6 (10-20); Calcium 8.1 mg/dl (8.5-10.1); Creatinine Clr Calc Pharmacy 11.3 ml/min; Est GFR (African American) 10.6; Est GFR (Non-African American) 9.2; Potassium 4.5 mmol/L (3.5-5.1)
[2018-12-27] MEDS ORDERED: SODIUM CHLORIDE 0.9% 1000ML 1,000 ML IV PRN (08:28)
[2018-12-27] MEDS: NEPHROCAPS PO SCH (08:30)
[2018-12-27] MEDS: AMLODIPINE BESYLATE 5 MG TAB PO SCH (08:30)
[2018-12-27] MEDS: HEPARIN SOD 5,000 UNIT/0.5 ML VIAL SQ SCH ×2 (08:30→20:38)
[2018-12-27] MEDS: ATORVASTATIN 10 MG TAB PO SCH (08:30)
[2018-12-27] MEDS: FAMOTIDINE 20 MG TAB PO SCH (08:30)
[2018-12-27] MEDS: SERTRALINE HCL 100 MG TABLET PO SCH (08:30)
[2018-12-27] MEDS ORDERED: HEPARIN SOD (PORCINE) 1000 UNIT/ML 10 ML VIAL IV SCH (09:00)
[2018-12-27] MEDS: CALCIUM ACETATE 667 MG CAP PO SCH ×4 (09:06→20:39)
[2018-12-27] MEDS: MIDODRINE HCL 2.5 MG TAB PO SCH ×3 (09:06→17:30)
[2018-12-27 09:14] LABS: Beta-Hydroxybutyrate 93.28 mg/dl (0.2-2.81)
[2018-12-27] MEDS ORDERED: PHARMACY GLYCEMIC MGMT CONSULT PRN (09:17)
[2018-12-27] MEDS ORDERED: MODERATE STRESS LEVEL ONE (09:52)
[2018-12-27] MEDS ORDERED: INSULIN REGULAR 250 UNITS in SODIUM CHLORIDE 0.9% 247.5 ML IV SCH (10:00)
[2018-12-27] MEDS ORDERED: INSULIN HUMAN REGULAR IV BOLUS 5 UNITS in SYRINGE 0 ML IV ONE (10:00)
--- NOTE | 2018-12-27 10:42 | Pharmacy Report ---
Glycemic Control Consultation - Date of Service December 27, 2018 - Scope Scope: Glycemic Pharmacist consulted by Dr Rey on 12/27/18 for glycemic control and to write orders per [facility] inpatient glycemic control protocol - Objective Weight: 57.6 kg Accuchecks BSG (last 24hrs): 12/26/18 12/26/18 12/26/18 12:21 16:30 17:39 Glucose 150 H POC Glucose 121 H 126 H 12/26/18 12/27/18 12/27/18 20:25 06:56 07:43 Glucose 442 H* POC Glucose 278 H 448 H* 12/27/18 12/27/18 12/27/18 07:44 08:55 08:58 Glucose POC Glucose 429 H* 517 H* 490 H* Laboratory Data (last 24hrs): 12/26/18 12/27/18 17:39 06:56 Potassium 3.7 4.5 D Carbon Dioxide 24 12 L Anion Gap 13.0 H 25.0 H Creatinine 5.78 H* 6.53 H* D Est Cr Clr Drug Dosing 12.7 11.3 Beta-Hydroxybutyric Acd 93.28 H - Recent Pertinent Medications Outpatient Anti-diabetic Regimen: * Insulin pump: 00-03: .5u/hr, 03-07 .6u/hr, 07-00 1u/hr. CF/CR 35/10. Goal Range 100-130 - Assessment & Plan Assessment & Plan: ASSESSMENT: * Mr. De Los Santos is a 48yo M, type 1 diabetic known to the pharmacy glycemic service. He received his own insulin pump yesterday and this AM. However, BSGs today in the 500s. CO2/HCO3 low today: potentially indicative of early DKA. AG, BHB both elevated. Will initiate insulin infsn per DKA protocol. PLAN FOR INPATIENT GLYCEMIC CONTROL: * Starting IV insulin infusion per moderate stress protocol * Goal Range 150 - 250 mg/dl * In the critical care setting, continuous IV insulin infusion has been shown to be the best method for achieving glycemic targets. * Please note that the plan above was derived based on current level of insulin resistance and hospital stress. These recommendations are appropriate for inpatient admission only. Plan of care upon discharge will need to be reassessed to avoid potential outpatient hypo/hyperglycemia. Thank you.
[2018-12-27] MEDS: HEPARIN SOD (PORCINE) 1000 UNIT/ML 10 ML VIAL IV SCH (12:28)
[2018-12-27] MEDS ORDERED: INSULIN ASPART 100 UNITS/ML 3 ML PEN SC SCH (13:00)
--- NOTE | 2018-12-27 16:29 | Magnetic Resonance Report ---
Brain MRI WITHOUT CONTRAST HISTORY: intractable nausea/emesis; eval intracranial path TECHNIQUE: Multiplanar multisequence MRI of the brain was performed without the use of contrast. COMPARISON STUDY: Head CT 07/17/2018. FINDINGS: There are no areas of restricted diffusion to suggest acute infarction. The midline structu res are intact. The paranasal sinuses are clear. The mastoid air cells are clear. The ventricles and sulci are within normal limits for age. There is no mass, hematoma, midline shift. The major vascular flow-voids at the skull base are well maintained. IMPRESSION: No acute intracranial abnormality. Electronically signed by: Cristiano Brown M.D. 12/27/2018 4:27 PM
--- NOTE | 2018-12-27 17:32 | Hospitalist Progress Note ---
Date of Service December 27, 2018 Assessment & Plan (1) Intractable vomiting: Acute on chronic. Possibly due to gastroparesis with psychogenic component. - He felt "great" on 12/25/18, ate dinner w/o nausea/emesis, etc. - On 12/26, felt significantly worse without any specific inciting factor. - His nausea/vomiting is refractory to most anti-emetics. He saw Dr. Prasahnth Martin, gastroparesis specialist at [facility] in [place], earlier this spring and was placed on erythromycin. - Work-up to date - multiple CTs, RUQ u/s, CT head, cortisol, TSH, cardiac cath, EGD (10/2018), HIDA scan, x-rays which are all negative or normal. - Dr. James called [facility] and spoke with the on-call GI physician, Dr Guevara Hurst. - He recommended aprepitant. - Gave fosaprepitant 150mg IV x 1. It is not renally excreted so no dose adjustment needed for his ESRD status. It lasts 3-5 days in duration. = Will discharge tomorrow if symptoms remain stable. (2) Gastroparesis: See discussion above in "intractable vomiting". (3) Depression: Very downcast due to divorce. - Appreciate psych consultation. - Increased zoloft to 200mg daily per their recommendations. - Has f/u with [facility] in the next 2 weeks post-discharge -- parents confirmed such. Also has counseling scheduled for sometime this week as well. (4) ESRD (end stage renal disease): On HD M/W/F. - Appreciate [facility] nephrology assistance. (5) HTN (hypertension): Hydralazine stopped due to severe orthostasis. - Continue amlodipine - Was on midodrine 2.5mg TID shortly, but now will hold. (6) Diabetes mellitus type 1, with complication, on assisted insulin pump: Remains on his insulin pump. - On 12/27, his blood sugars were out of control due to getting a regular can of soda. - Blood sugar was dialized down. Now back to fairly normal control - No evidence of DKA to date. (7) DVT prophylaxis: Heparin 5000 BID Subjective Only two episodes of dry heaving today. Feeling better and sleeping some. Otherwise no complaints. Review of Systems Review of Systems: All systems reviewed & are unremarkable except as noted in HPI & below Physical Exam Constitutional: + ill appearing and + thin; no altered mental status ENMT: external ear and nose normal, oropharynx normal Mouth: + dry oral mucous membranes Respiratory: normal respiratory effort, lungs clear to auscultation Cardiovascular: Rate/Rhythm: regular rate and regular rhythm Heart Sounds: normal S1 and normal S2; no murmur Vessels: posterior tibial pulses present and dorsalis pedis pulses present; no JVD Extremities: no edema Gastrointestinal (Abdomen): normal bowel sounds, soft, nontender, no hepatosplenomegaly Psychiatric: Orientation: alert and oriented x 3 Affect: + depressed affect and + flat affect Results & Data Vital Signs (Past 12 Hours) Vital Signs Temp Pulse Pulse Pulse Resp BP BP 12/27/18 14:38 37.1 C 77 18 143/71 H 12/27/18 14:19 37.4 C 90 110/72 12/27/18 13:56 90 110/72 12/27/18 13:40 92 H 96/63 L 12/27/18 13:20 91 H 89/57 L 12/27/18 13:00 88 94/55 L 12/27/18 12:40 88 83/48 L 12/27/18 12:26 86 75/49 L 12/27/18 12:00 85 77/49 L 12/27/18 11:40 88 74/54 L 12/27/18 11:20 90 92/61 L 12/27/18 11:00 90 96/63 L 12/27/18 10:40 90 125/73 12/27/18 10:26 36.6 C 92 H 92 H 125/64 12/27/18 06:41 36.7 C 89 17 118/69 Pulse Ox 12/27/18 14:38 96 12/27/18 14:19 12/27/18 13:56 12/27/18 13:40 12/27/18 13:20 12/27/18 13:00 12/27/18 12:40 12/27/18 12:26 12/27/18 12:00 12/27/18 11:40 12/27/18 11:20 12/27/18 11:00 12/27/18 10:40 12/27/18 10:26 12/27/18 06:41 96 PG Care Time/CCT Total # of Minutes Spent Total Time Spent with Patient: Total time spent is greater than 50% in coordination of care (as documented) at patient's floor/unit and/or counseling patient: (1) Intractable vomiting Nausea presence: unspecified Vomiting type: unspecified Qualified Code(s): R11.10 - Vomiting, unspecified (2) Depression Depression Type: major depressive disorder Major depression recurrence: un specified whether recurrent Active/Remission status: currently active Major depression episode severity: severe Psychotic features: without psychotic features Qualified Code(s): F32.2 - Major depressive disorder, single episode, severe without psychotic features (3) HTN (hypertension) Hypertension type: essential hypertension Qualified Code(s): I10 - Essential (primary) hypertension
--- NOTE | 2018-12-27 21:56 | Nephrology Progress Note ---
Date of Service December 27, 2018 Assessment & Plan (1) ESRD (end stage renal disease): Patient with ESRD on HD MWF at [facility]. Patient tolerated dialysis well today with no UF. Next dialysis will be on Thursday. We will plan 4 hours of dialysis and target UF of 1 L. (2) Anemia: Patient with anemia of renal disease. Hb is at target. No role for FLOR (3) Nausea and vomiting: Likely due to gastroparesis. Ongoing work up for other etiologies. Will minimize UF during HD. Continue supportive management for GI symptoms (4) HTN (hypertension): BP is at target. Continue amloc and hydralazine Subjective Patient seen and examined while on dialysis in the morning. No SOB. Had hyperglycemia this morning. Nausea is better. Review of Systems Review of Systems: All systems reviewed & are unremarkable except as noted in HPI & below Physical Exam Physical Exam: General exam: Appears comfortable, no acute distress HEENT: Pupils are equal and reactive to light Neck: No JVD, neck is supple trachea is midline Respiratory system: Clear breath sounds bilaterally. Gastrointestinal: Abdomen is soft, non distended, non tender, bowel sounds are present CVS: Regular rate and rhythm. No murmurs, rubs or gallops Musculoskeletal: No joint or muscle tenderness Extremities: Non tender, no edema, peripheral pulses are present Neuro: Oriented, no tremors, no focal neurological deficits Skin: No rashes Results & Data Vital Signs (Past 12 Hours) Vital Signs Temp Pulse Pulse Pulse Resp BP BP 12/27/18 19:00 37.2 C 97 H 16 133/68 12/27/18 14:38 37.1 C 77 18 143/71 H 12/27/18 14:19 37.4 C 90 110/72 12/27/18 13:56 90 110/72 12/27/18 13:40 92 H 96/63 L 12/27/18 13:20 91 H 89/57 L 12/27/18 13:00 88 94/55 L 12/27/18 12:40 88 83/48 L 12/27/18 12:26 86 75/49 L 12/27/18 12:00 85 77/49 L 12/27/18 11:40 88 74/54 L 12/27/18 11:20 90 92/61 L 12/27/18 11:00 90 96/63 L 12/27/18 10:40 90 125/73 12/27/18 10:26 36.6 C 92 H 92 H 125/64 Pulse Ox 12/27/18 19:00 95 12/27/18 14:38 96 12/27/18 14:19 12/27/18 13:56 12/27/18 13:40 12/27/18 13:20 12/27/18 13:00 12/27/18 12:40 12/27/18 12:26 12/27/18 12:00 12/27/18 11:40 12/27/18 11:20 12/27/18 11:00 12/27/18 10:40 12/27/18 10:26 Laboratory Results Laboratory Results - last 24 hr 12/26/18 12/27/18 12/27/18 21:45 06:56 06:56 WBC 13.07 H RBC 3.93 L Hgb 11.9 L Hct 37.5 L MCV 95.4 MCH 30.3 MCHC 31.7 L RDW Std Deviation 49.4 H RDW Coeff of Kami 14.1 Plt Count 228 MPV 10.6 H Immature Gran % (Auto) 0.5 Neut % (Auto) 78.3 Lymph % (Auto) 11.2 [place] % (Auto) 9.7 Eos % (Auto) 0.1 Baso % (Auto) 0.2 Immature Gran # (Auto) 0.06 H Neut # (Auto) 10.24 H Lymph # (Auto) 1.46 [place] # (Auto) 1.27 H Eos # (Auto) 0.01 Baso # (Auto) 0.03 Sodium 133 L Potassium 4.5 D Chloride 96 L Carbon Dioxide 12 L Anion Gap 25.0 H BUN 63 H Creatinine 6.53 H* D Est Cr Clr Drug Dosing 11.3 Est GFR ( Amer) 10.6 Est GFR (Non-Af Amer) 9.2 BUN/Creatinine Ratio 9.6 L Glucose 442 H* POC Glucose Calcium 8.1 L Beta-Hydroxybutyric Acd 93.28 H Nasal Screen MRSA (PCR) Negative 12/27/18 12/27/18 12/27/18 07:43 07:44 08:55 WBC RBC Hgb Hct MCV MCH MCHC RDW Std Deviation RDW Coeff of Kami Plt Count MPV Immature Gran % (Auto) Neut % (Auto) Lymph % (Auto) [place] % (Auto) Eos % (Auto) Baso % (Auto) Immature Gran # (Auto) Neut # (Auto) Lymph # (Auto) [place] # (Auto) Eos # (Auto) Baso # (Auto) Sodium Potassium Chloride Carbon Dioxide Anion Gap BUN Creatinine Est Cr Clr Drug Dosing Est GFR ( Amer) Est GFR (Non-Af Amer) BUN/Creatinine Ratio Glucose POC Glucose 448 H* 429 H* 517 H* Calcium Beta-Hydroxybutyric Acd Nasal Screen MRSA (PCR) 12/27/18 12/27/18 12/27/18 08:58 11:44 12:46 WBC RBC Hgb Hct MCV MCH MCHC RDW Std Deviation RDW Coeff of Kami Plt Count MPV Immature Gran % (Auto) Neut % (Auto) Lymph % (Auto) [place] % (Auto) Eos % (Auto) Baso % (Auto) Immature Gran # (Auto) Neut # (Auto) Lymph # (Auto) [place] # (Auto) Eos # (Auto) Baso # (Auto) Sodium Potassium Chloride Carbon Dioxide Anion Gap BUN Creatinine Est Cr Clr Drug Dosing Est GFR ( Amer) Est GFR (Non-Af Amer) BUN/Creatinine Ratio Glucose POC Glucose 490 H* 326 H* 286 H Calcium Beta-Hydroxybutyric Acd Nasal Screen MRSA (PCR) 12/27/18 12/27/18 12/27/18 14:02 16:24 20:07 WBC RBC Hgb Hct MCV MCH MCHC RDW Std Deviation RDW Coeff of Kami Plt Count MPV Immature Gran % (Auto) Neut % (Auto) Lymph % (Auto) [place] % (Auto) Eos % (Auto) Baso % (Auto) Immature Gran # (Auto) Neut # (Auto) Lymph # (Auto) [place] # (Auto) Eos # (Auto) Baso # (Auto) Sodium Potassium Chloride Carbon Dioxide Anion Gap BUN Creatinine Est Cr Clr Drug Dosing Est GFR ( Amer) Est GFR (Non-Af Amer) BUN/Creatinine Ratio Glucose POC Glucose 215 H 242 H 252 H Calcium Beta-Hydroxybutyric Acd Nasal Screen MRSA (PCR) (1) Anemia Anemia type: due to chronic kidney disease Chronic kidney disease stage: on chronic dialysis Qualified Code(s): N18.6 - End stage renal disease; D63.1 - Anemia in chronic kidney disease; Z99.2 - Dependence on renal dialysis (2) Nausea and vomiting Vomiting type: unspecified Vomiting Intractability: intractable Qualified Code(s): R11.2 - Nausea with vomiting, unspecified (3) HTN (hypertension) Hypertension type: essential hypertension Qualified Code(s): I10 - Essential (primary) hypertension
[2018-12-28] MEDS ORDERED: INSULIN HUMAN REGULAR PER UNIT 5 UNITS in SYRINGE 4.95 ML IV ONE (00:45)
[2018-12-28] MEDS: METOCLOPRAMIDE HCL INJ 5 MG/ML 2 ML VIAL IV SCH ×2 (05:37→11:18)
[2018-12-28] MEDS: HEPARIN SOD 5,000 UNIT/0.5 ML VIAL SQ SCH ×2 (07:58→08:03)
[2018-12-28] MEDS: CALCIUM ACETATE 667 MG CAP PO SCH ×2 (07:58→11:17)
[2018-12-28] MEDS: SERTRALINE HCL 100 MG TABLET PO SCH (07:58)
[2018-12-28] MEDS: AMLODIPINE BESYLATE 5 MG TAB PO SCH (07:58)
[2018-12-28] MEDS: FAMOTIDINE 20 MG TAB PO SCH (07:58)
[2018-12-28] MEDS: ATORVASTATIN 10 MG TAB PO SCH (07:58)
[2018-12-28] MEDS: NEPHROCAPS PO SCH (07:58)
[2018-12-28] MEDS ORDERED: INSULIN REGULAR 250 UNITS in SODIUM CHLORIDE 0.9% 247.5 ML IV SCH (09:00)
[2018-12-28] MEDS ORDERED: INSULIN ASPART 100 UNITS/ML 3 ML PEN SC SCH (11:30)
[2018-12-28] MEDS ORDERED: [UNRECOGNIZED DRUG - REMARK] ONE (12:00)
--- NOTE | 2018-12-29 07:12 | Discharge Summary ---
Date of Service December 28, 2018 Admission HPI Per Admitting Provider Jorge Alberto De Los Santos is a 48-year-old male admitted medically on 12/23/2018 for nausea, vomiting, and abdominal pain. Patient also had inpatient admissions on 12/20/2018, having just been discharged the day he represented to the emergency room. Past medical history is significant for type 1 diabetes with gastroparesis, hypertension, chronic kidney disease. Patient has been seen multiple times on our service since August 2018 for complaints of depression. Patient had been started on sertraline, which has been titrated with each psychiatric consultation. Psychiatric consultation is requested this admission to evaluate for severe depression, and recommend medication adjustments as indicated. This provider attempted multiple times today to meet with the patient, who had a rather busy day with imaging. This provider was eventually able to speak with the patient; however, at that point in the day the patient verbalized fatigue. Despite being awoken from a nap, the patient is agreeable to participating in his psychiatric assessment. Patient states that his mood has improved slightly since his sertraline was titrated to a dose of 150 mg in October 2018. Patient feels that he has noticed lower anxiety and a "little mood lift" since having this dose adjusted. Patient does verbalize some ongoing depressive symptoms, difficulty sleeping, low energy, and some ongoing anxiety. Recommendation as of his last psychiatric consultation was for further titration of his sertraline as needed. This was reviewed with the patient, who is agreeable to medication changes. Risks, benefits, and possible side effects of the titration were reviewed with the patient who verbalized understanding and was agreeable with the medication change. Patient denies suicidality or any symptoms consistent with a diagnosis other than depression and anxiety. Patient denies any other psychiatric concerns at this time. Principal Diagnosis Nausea and vomiting Discharge Exam Constitutional + ill appearing and + thin; no altered mental status ENMT external ear and nose normal, oropharynx normal Mouth: + dry oral mucous membranes Respiratory normal respiratory effort, lungs clear to auscultation Cardiovascular Rate/Rhythm: regular rate and regular rhythm Heart Sounds: normal S1 and normal S2; no murmur Vessels: posterior tibial pulses present and dorsalis pedis pulses present; no JVD Extremities: no edema Gastrointestinal (Abdomen) normal bowel sounds, soft, nontender, no hepatosplenomegaly Psychiatric Orientation: alert and oriented x 3 Affect: + depressed affect and + flat affect Discharge Data Allergies Allergy/AdvReac Type Severity Reaction Status Date / Time shellfish derived Allergy Severe anaphylaxis Verified 12/29/18 00:59 codeine Allergy Intermediate Hives Verified 12/29/18 00:59 promethazine Allergy Intermediate itchy/hives Verified 12/29/18 00:59 Consultations 12/23/18 19:53 ED Decision to Admit Stat 12/23/18 22:18 Consult Nephrology Routine 12/23/18 22:32 Consult Psychiatry Routine 12/24/18 10:23 Consult Gastroenterology Routine Ordered Studies 12/27/18 00:32 MR brain wo con Routine Hospital Course (1) Intractable vomiting: Acute on chronic. Possibly due to gastroparesis with psychogenic component. - He felt "great" on 12/25/18, ate dinner w/o nausea/emesis, etc. - On 12/26, felt significantly worse without any specific inciting factor. - His nausea/vomiting is refractory to most anti-emetics. He saw Dr. Prashanth Martin, gastroparesis specialist at [facility] in [place], earlier this spring and was placed on erythromycin. - Work-up to date - multiple CTs, RUQ u/s, CT head, cortisol, TSH, cardiac cath, EGD (10/2018), HIDA scan, x-rays which are all negative or normal. - Dr. James called [facility] and spoke with the on-call GI physician, Dr uGevara Hurst. - He recommended aprepitant. - Gave fosaprepitant 150mg IV x 1. It is not renally excreted so no dose adjustment needed for his ESRD status. It lasts 3-5 days in duration. = Discharged with minimal symptoms. (2) Gastroparesis: See discussion above in "intractable vomiting". (3) Depression: Very downcast due to divorce. - Appreciate psych consultation. - Increased zoloft to 200mg daily per their recommendations. - Has f/u with [facility] in the next 2 weeks post-discharge -- parents confirmed such. Also has counseling scheduled for sometime this week as well. (4) ESRD (end stage renal disease): On HD M/W/F. - Appreciate [facility] nephrology assistance. (5) HTN (hypertension): Hydralazine stopped due to severe orthostasis. - Continue amlodipine - Was on midodrine 2.5mg TID shortly, but now will hold. (6) Diabetes mellitus type 1, with complication, on [facility] insulin pump: Remains on his insulin pump. - On 12/27, his blood sugars were out of control due to getting a regular can of soda. - Blood sugar was dialized down. Now back to fairly normal control - No evidence of DKA to date. (7) DVT prophylaxis: Heparin 5000 BID Total Time Total Time Spent Total Time Spent (In Minutes): 35 Discharge Plan Discharge Items Patient Disposition: Home - Self-Care Reason For Visit: NAUSEA,VOMITING,DEPRESSION Discharge Diagnosis: Nausea and vomiting Condition: Good Discharge Goals: Decrease discomfort Activity: Resume your previous activity Non-emergency contact: Primary Care Provider Call non-emergency contact if: you have any medication questions and your symptoms worsen Follow-up/Referrals: Dr. Prashanth Martin [Other] - 01/04/19 11:40 am (Please, follow up with Dr. Prashanth Martin on ThursdayJanuary 04 at 11:40 am. *The address is [address] [place] [address] ([address] 3[address] floor) in [place]. If you need to change this appointment, call his office at [phone]. ) Nika Hill PA-C [Physician Marketing Community Liaison] - 12/30/18 3:10 pm (Please, follow up at [facility] with Nika Hill PA-C on December 30 at 3:30 pm (arrive 3:10 pm). *Sharlene is the physician assistant store manager operations working with Dr. Celestin. He will be your new primary care provider. The office is located in [address] of [facility]. This is the big building next to the hospital. If you need to change this appointment, call the office at [phone].) Diet: Carb Count or DM1 and Dialysis Renal Addtl Provider Instructions: Mr. De Los Santos, You were admitted to the hospital with nausea and vomiting. We believe your gastroparesis is partially responsible for this; however, depression and anxiety can also worsen physical symptoms, and we feel this may be contributing to it as well. We gave you a medication called fosaprepitant which can also be prescribed as an oral medication by Dr. Martin when you see him in the office. We will also have you keep taking your Reglan as this may help as well. We are simplifying your medication list as best we can to prevent further nausea. We stopped your Lasix (furosemide) because you do not make any urine and does not have any effect. We also held your hydralazine because your blood pressure was actually mildly low in the hospital. Finally, please follow up with [facility] to continue treating your depression and anxiety. We increased your sertraline to 200 mg (up from 150 mg) and sent a renewed script to your pharmacy. Prescriptions: Continued atorvastatin 10 mg tablet 10 mg PO QAM RF: 0 Humalog U-100 Insulin 100 unit/mL Cartridge 1 sliding scale dose SUBCUT CONT RF: 0 cholecalciferol (vitamin D3) [Vitamin D3] 2,000 unit Capsule 2,000 unit PO QAM RF: 0 metoclopramide HCl 5 mg tablet 5 mg PO TID RF: 0 prochlorperazine [Compazine] 25 mg Suppository 25 mg MI DAILY PRN (Reason: Nausea) RF: 0 amlodipine 10 mg tablet 10 mg PO QAM RF: 0 Chris Caps 1 mg capsule 1 cap PO DAILY RF: 0 calcium acetate 667 mg capsule See Rx Instructions .ROUTE .COMPLEX MDD 7 CAPSULES/DAY RF: 0 famotidine 20 mg Tablet 20 mg PO QAM Qty: 30 RF: 5 Changed sertraline 100 mg tablet 200 mg PO QAM Qty: 60 RF: 0 Discontinued hydralazine 25 mg Tablet 25 mg PO TID RF: 0 furosemide [Lasix] 20 mg Tablet 20 mg PO DAILY PRN (Reason: Edema) RF: 0 Stand-Alone Forms: [facility] Discharge Orders: Discharge Order (Routine); Ordered 12/28/18 Ordered By: Sergo Rey Admission Data Admit Date/Time: 12/26/18 12:40 Attending Provider: Sergo Rey Admit Provider: Stanley Mackey Primary Care Provider: Cory Celestin Other Providers: Sergo Rey ; Stanley Mackey ; Lor Guadalupe ; Ethel Ocampo ; Pancho Juárez Service: Medical Other Interventions: Discharge Summary Assessment (RN) Last Done: 12/28/18 12:48 DC Date/Time DO NOT enter until pt leaves facility: 12/28/18 13:20
== END 2018-12-28 13:20 | disposition home or self-care (01) | DRG 391 ==
LOC: ED 16:17 → 3W 16:17 → SUATTDRO 20:37 → 3W 21:55 → SUATTDRO 12-26 12:40 → 2S 12-26 17:21 → 4W 12-27 17:33

== ENCOUNTER 2018-12-28 22:46 | Observation (INO) ==
[2018-12-28] MEDS ORDERED: METOCLOPRAMIDE HCL INJ 5 MG/ML 2 ML VIAL IV STA (22:56)
--- NOTE | 2018-12-28 23:21 | Emergency Department Note ---
History of Present Illness General Chief complaint: Hyperglycemia Stated complaint: HYPERGLYCEMIA 600+ History of Present Illness This 48-year-old with type 1 diabetes end-stage renal disease presents to the ER complaining of intractable vomiting with diarrhea Location: Abdomen Quality: Nauseous Severity: Severe Duration: Today Timing: Today Context: Patient was just discharged this afternoon and has been vomiting since Modifying factors: better with nothing; worse with nothing Patient states he cannot keep any fluids down. He is also been having diarrhea. He states he was not feeling great at discharge today. Patient denies chest pain, dyspnea, fevers, abdominal pain, cough, congestion. He still makes urine. Home Medications Home Medications Medication Instructions Recorded Confirmed Type Humalog U-100 Insulin 1 sliding scale dose SUBCUT CONT 09/10/18 12/29/18 History atorvastatin 10 mg PO QAM 09/10/18 12/29/18 History Chris Caps 1 cap PO DAILY 12/19/18 12/29/18 History amlodipine 10 mg PO QAM 12/19/18 12/29/18 History calcium acetate See Rx Instructions .ROUTE 12/19/18 12/29/18 History .COMPLEX MDD 7 CAPSULES/DAY cholecalciferol (vitamin D3) 2,000 unit PO QAM 12/23/18 12/29/18 History [Vitamin D3] famotidine 20 mg PO QAM #30 tab 12/23/18 12/29/18 Rx metoclopramide HCl 5 mg PO TID 12/23/18 12/29/18 History prochlorperazine [Compazine] 25 mg ID DAILY PRN 12/23/18 12/29/18 History sertraline 200 mg PO QAM #60 tab 12/28/18 12/29/18 Rx Allergies Allergy/AdvReac Type Severity Reaction Status Date / Time shellfish derived Allergy Severe anaphylaxis Verified 12/29/18 00:59 codeine Allergy Intermediate Hives Verified 12/29/18 00:59 promethazine Allergy Intermediate itchy/hives Verified 12/29/18 00:59 Past Med/Surg History Medical History Acid reflux Hypertension Type I diabetes mellitus Insulin pump (diagnosed at age 31) Gastroparesis due to DM Depression Anemia Anxiety CAD (coronary artery disease) mild, non-obstructive CAD per 10/2018 cardiac cath ESRD (end stage renal disease) Hemodialysis M,W,F (Follows with Dr. Taylor Higgins; [facility]/[place]). Kidney stones Peripheral neuropathy Retinopathy due to secondary diabetes Surgical History History of appendectomy H/O shoulder surgery RIGHT History of hip surgery LEFT HIP ARTHROSCOPY History of cardiac cath 10/2018= no stents, no obstructive disease (at [facility]) History of lithotripsy Permanent central venous catheter in place Permacath Family History Grandfather Myocardial infarction Grandfather (Maternal) Family history of diabetes mellitus Social History Preferred Language: Setswana Communication Ability: Effective Beliefs That Will Affect Care: None marital status: Legally Current Living Situation: Family current occupational status: employed Feels Safe at Home: Yes Smoking Status: Never smoker Tobacco Type: smokeless tobacco Second Hand Exposure: No Hx Alcohol Use: No Hx Substance Use: No Review of Systems All systems reviewed & are unremarkable except as noted in HPI & below Physical Exam Vital Signs Vital Signs - 24 hr 12/28/18 22:49 12/28/18 23:01 12/28/18 23:25 Temperature 36.3 C L Temperature Source Oral Sepsis Recent Fever Within 48 Hours No Sepsis New/Unexplained Change in Mental Status No Sepsis Action Taken by Nursing No Action Required Pulse Rate 93 H 94 H 93 H Pulse Rate from SpO2 Sensor 94 H Respiratory Rate 20 19 Blood Pressure 120/52 L 158/76 H Blood Pressure Mean 74 103 Pulse Oximetry 98 97 Oxygen Delivery Method Room Air 12/28/18 23:30 12/29/18 00:00 12/29/18 00:01 Temperature Temperature Source Sepsis Recent Fever Within 48 Hours Sepsis New/Unexplained Change in Mental Status Sepsis Action Taken by Nursing Pulse Rate 95 H 95 H 95 H Pulse Rate from SpO2 Sensor 95 H 95 H 95 H Respiratory Rate 14 18 17 Blood Pressure 170/86 H Blood Pressure Mean 114 Pulse Oximetry 97 98 98 Oxygen Delivery Method Room Air Room Air Room Air VITALS: Vitals are noted on the nurse's note and reviewed by myself. Vital s igns stable. GENERAL: White male dehydrated appearing, in no acute distress, nondiaphoretic, well-developed well-nourished. SKIN: The skin was without rashes, erythema, edema, or bruising. There is no tenting of the skin. Capillary reflex less than 2 seconds. HEAD: Normocephalic atraumatic. EARS: External auditory canals clear, tympanic membranes pearly henry without erythema or effusion bilaterally. EYES: Pupils equal round and reactive to light and accommodation. Conjunctivae without injection, sclerae without icterus. Extraocular movements intact. NOSE: Patent, turbinates without inflammation or discharge. No sinus tenderness. MOUTH: Mucous membranes dry. Pharynx without erythema or exudate. Uvula midline. Airway patent. Tongue does not deviate. NECK: Supple without nuchal rigidity. No lymphadenopathy. No thyromegaly. Cervical spine is nontender. No JVD. HEART: Regular rate and rhythm LUNGS: Clear to auscultation bilaterally without wheezes, rales or rhonchi. No retractions or accessory muscle use. ABDOMEN: Positive bowel sounds x 4. Normal tympanic percussion. Soft, nontender, without masses or organomegaly. Prescott sign negative. No guarding or rebound tenderness. No CVA tenderness MUSCULOSKELETAL: No muscle atrophy, erythema, or edema noted. NEURO: Patient was alert and oriented to person place and time. Normal sensation to light and sharp touch. No focal neurological deficits. Course Administered Medications Discontinued Medications Sodium Chloride (Nss 1000ml) 250 mls @ 999 mls/hr IV .Q16M ONE Stop: 12/28/18 23:39 Last Infusion: 12/29/18 00:10 Dose: 0 mls/hr Documented by: [id number] Admin: 12/28/18 23:37 Dose: 999 mls/hr Documented by: [id number] Sodium Chloride (Nss 1000ml) 250 mls @ 999 mls/hr IV .Q16M ONE Stop: 12/29/18 00:39 Last Admin: 12/29/18 00:33 Dose: 999 mls/hr Documented by: [id number] Insulin Human Regular (Novolin R U-100 Per Unit) 10 units IV NOW STA Stop: 12/29/18 00:25 Last Admin: 12/29/18 00:33 Dose: 10 units Documented by: [id number] Cosigned by: [id number] Metoclopramide HCl (Reglan) 10 mg IV NOW STA Stop: 12/28/18 22:57 Last Admin: 12/28/18 23:15 Dose: 10 mg Documented by: [id number] Medical Decision Making Medical Records Attestation: I reviewed the patient's medical records. Home Medications Current Medication List: was personally reviewed by me Laboratory Data Attestation: I reviewed the patient's lab results. Result diagrams: 12/28/18 23:13 12/28/18 23:13 Lab Results 12/28/18 12/28/18 12/28/18 Range/Units 22:51 22:52 23:13 WBC 18.52 H (4.8-10.8) K/uL RBC 3.72 L (4.7-6.1) M/uL Hgb 11.2 L (14.0-18.0) g/dL Hct 36.7 L (42-52) % MCV 98.7 (80-100) fL MCH 30.1 (25-34) pg MCHC 30.5 L (32-36) g/dL RDW Std Deviation 51.6 H (36.4-46.3) fL RDW Coeff of Kami 14.5 (11.5-14.5) % Plt Count 241 (130-400) K/uL MPV 10.1 (7.4-10.4) fL Immature Gran % (Auto) 0.4 % Neut % (Auto) 92.4 % Lymph % (Auto) 4.0 % Barron % (Auto) 3.0 % Eos % (Auto) 0.0 % Baso % (Auto) 0.2 % Immature Gran # (Auto) 0.08 H (0.00-0.02) K/uL Neut # (Auto) 17.10 H (1.4-6.5) K/uL Lymph # (Auto) 0.75 L (1.2-3.4) K/uL Barron # (Auto) 0.56 (0.11-0.59) K/uL Eos # (Auto) 0.00 (0-0.5) K/uL Baso # (Auto) 0.03 (0-0.2) K/uL PT (9.0-12.0) Seconds INR (0.9-1.1) APTT (21.0-31.0) Seconds PTT Ratio VBG pH (7.36-7.41) VBG pCO2 (38-50) mmHg VBG pO2 mmHg VBG HCO3 mmol/L VBG O2 Saturation % VBG Base Excess mEq/L Sodium (136-145) mmol/L Potassium (3.5-5.1) mmol/L Chloride (98-107) mmol/L Carbon Dioxide (21-32) mmol/L Anion Gap (3-11) BUN (7-18) mg/dl Creatinine (0.6-1.4) mg/dl Est Cr Clr Drug Dosing Est GFR ( Amer) Est GFR (Non-Af Amer) BUN/Creatinine Ratio (10-20) Glucose (70-99) mg/dl POC Glucose 575 H* 566 H* (70-99) POC Lactic Acid Evan (0.90-1.70) mmol/L Calcium (8.5-10.1) mg/dl Magnesium (1.8-2.4) mg/dl Total Bilirubin (0.2-1) mg/dl AST (15-37) U/L ALT (12-78) U/L Alkaline Phosphatase (45-117) U/L Troponin I (0-0.045) ng/ml Total Protein (6.4-8.2) gm/dl Albumin (3.4-5.0) gm/dl Globulin (2.5-4.0) gm/dl Albumin/Globulin Ratio (0.9-2) Beta-Hydroxybutyric Acd (0.2-2.81) mg/dl 12/28/18 12/28/18 12/28/18 Range/Units 23:13 23:13 23:13 WBC (4.8-10.8) K/uL RBC (4.7-6.1) M/uL Hgb (14.0-18.0) g/dL Hct (42-52) % MCV (80-100) fL MCH (25-34) pg MCHC (32-36) g/dL RDW Std Deviation (36.4-46.3) fL RDW Coeff of Kami (11.5-14.5) % Plt Count (130-400) K/uL MPV (7.4-10.4) fL Immature Gran % (Auto) % Neut % (Auto) % Lymph % (Auto) % Barron % (Auto) % Eos % (Auto) % Baso % (Auto) % Immature Gran # (Auto) (0.00-0.02) K/uL Neut # (Auto) (1.4-6.5) K/uL Lymph # (Auto) (1.2-3.4) K/uL Barron # (Auto) (0.11-0.59) K/uL Eos # (Auto) (0-0.5) K/uL Baso # (Auto) (0-0.2) K/uL PT 11.8 (9.0-12.0) Seconds INR 1.2 H (0.9-1.1) APTT 30.5 (21.0-31.0) Seconds PTT Ratio 1.1 VBG pH 7.11 L (7.36-7.41) VBG pCO2 20 L (38-50) mmHg VBG pO2 108 mmHg VBG HCO3 6 mmol/L VBG O2 Saturation 92.3 % VBG Base Excess -21.5 mEq/L Sodium 128 L (136-145) mmol/L Potassium 4.4 (3.5-5.1) mmol/L Chloride 88 L (98-107) mmol/L Carbon Dioxide 5 L* (21-32) mmol/L Anion Gap 35.0 H (3-11) BUN 63 H (7-18) mg/dl Creatinine 6.13 H* D (0.6-1.4) mg/dl Est Cr Clr Drug Dosing Not Reportable Est GFR ( Amer) 11.5 Est GFR (Non-Af Amer) 9.9 BUN/Creatinine Ratio 10.2 (10-20) Glucose 607 H* (70-99) mg/dl POC Glucose (70-99) POC Lactic Acid Evan (0.90-1.70) mmol/L Calcium 8.2 L (8.5-10.1) mg/dl Magnesium 2.4 (1.8-2.4) mg/dl Total Bilirubin 0.4 (0.2-1) mg/dl AST 17 (15-37) U/L ALT 20 (12-78) U/L Alkaline Phosphatase 109 (45-117) U/L Troponin I < 0.015 (0-0.045) ng/ml Total Protein 6.8 (6.4-8.2) gm/dl Albumin 3.6 (3.4-5.0) gm/dl Globulin 3.2 (2.5-4.0) gm/dl Albumin/Globulin Ratio 1.1 (0.9-2) Beta-Hydroxybutyric Acd 146.79 H (0.2-2.81) mg/dl 12/28/18 12/29/18 12/29/18 Range/Units 23:47 00:04 00:05 WBC (4.8-10.8) K/uL RBC (4.7-6.1) M/uL Hgb (14.0-18.0) g/dL Hct (42-52) % MCV (80-100) fL MCH (25-34) pg MCHC (32-36) g/dL RDW Std Deviation (36.4-46.3) fL RDW Coeff of Kami (11.5-14.5) % Plt Count (130-400) K/uL MPV (7.4-10.4) fL Immature Gran % (Auto) % Neut % (Auto) % Lymph % (Auto) % Barron % (Auto) % Eos % (Auto) % Baso % (Auto) % Immature Gran # (Auto) (0.00-0.02) K/uL Neut # (Auto) (1.4-6.5) K/uL Lymph # (Auto) (1.2-3.4) K/uL Barron # (Auto) (0.11-0.59) K/uL Eos # (Auto) (0-0.5) K/uL Baso # (Auto) (0-0.2) K/uL PT (9.0-12.0) Seconds INR (0.9-1.1) APTT (21.0-31.0) Seconds PTT Ratio VBG pH (7.36-7.41) VBG pCO2 (38-50) mmHg VBG pO2 mmHg VBG HCO3 mmol/L VBG O2 Saturation % VBG Base Excess mEq/L Sodium (136-145) mmol/L Potassium (3.5-5.1) mmol/L Chloride (98-107) mmol/L Carbon Dioxide (21-32) mmol/L Anion Gap (3-11) BUN (7-18) mg/dl Creatinine (0.6-1.4) mg/dl Est Cr Clr Drug Dosing Est GFR ( Amer) Est GFR (Non-Af Amer) BUN/Creatinine Ratio (10-20) Glucose (70-99) mg/dl POC Glucose 581 H* 520 H* (70-99) POC Lactic Acid Evan 2.86 H (0.90-1.70) mmol/L Calcium (8.5-10.1) mg/dl Magnesium (1.8-2.4) mg/dl Total Bilirubin (0.2-1) mg/dl AST (15-37) U/L ALT (12-78) U/L Alkaline Phosphatase (45-117) U/L Troponin I (0-0.045) ng/ml Total Protein (6.4-8.2) gm/dl Albumin (3.4-5.0) gm/dl Globulin (2.5-4.0) gm/dl Albumin/Globulin Ratio (0.9-2) Beta-Hydroxybutyric Acd (0.2-2.81) mg/dl 12/29/18 12/29/18 Range/Units 01:11 01:13 WBC (4.8-10.8) K/uL RBC (4.7-6.1) M/uL Hgb (14.0-18.0) g/dL Hct (42-52) % MCV (80-100) fL MCH (25-34) pg MCHC (32-36) g/dL RDW Std Deviation (36.4-46.3) fL RDW Coeff of Kami (11.5-14.5) % Plt Count (130-400) K/uL MPV (7.4-10.4) fL Immature Gran % (Auto) % Neut % (Auto) % Lymph % (Auto) % Barron % (Auto) % Eos % (Auto) % Baso % (Auto) % Immature Gran # (Auto) (0.00-0.02) K/uL Neut # (Auto) (1.4-6.5) K/uL Lymph # (Auto) (1.2-3.4) K/uL Barron # (Auto) (0.11-0.59) K/uL Eos # (Auto) (0-0.5) K/uL Baso # (Auto) (0-0.2) K/uL PT (9.0-12.0) Seconds INR (0.9-1.1) APTT (21.0-31.0) Seconds PTT Ratio VBG pH (7.36-7.41) VBG pCO2 (38-50) mmHg VBG pO2 mmHg VBG HCO3 mmol/L VBG O2 Saturation % VBG Base Excess mEq/L Sodium (136-145) mmol/L Potassium (3.5-5.1) mmol/L Chloride (98-107) mmol/L Carbon Dioxide (21-32) mmol/L Anion Gap (3-11) BUN (7-18) mg/dl Creatinine (0.6-1.4) mg/dl Est Cr Clr Drug Dosing Est GFR ( Amer) Est GFR (Non-Af Amer) BUN/Creatinine Ratio (10-20) Glucose (70-99) mg/dl POC Glucose 465 H* 507 H* (70-99) POC Lactic Acid Evan (0.90-1.70) mmol/L Calcium (8.5-10.1) mg/dl Magnesium (1.8-2.4) mg/dl Total Bilirubin (0.2-1) mg/dl AST (15-37) U/L ALT (12-78) U/L Alkaline Phosphatase (45-117) U/L Troponin I (0-0.045) ng/ml Total Protein (6.4-8.2) gm/dl Albumin (3.4-5.0) gm/dl Globulin (2.5-4.0) gm/dl Albumin/Globulin Ratio (0.9-2) Beta-Hydroxybutyric Acd (0.2-2.81) mg/dl MDM Narrative Prior records/ancillary studies reviewed and summarized above. Nursing notes reviewed. Additional history obtained from family. The patient's history was concerning for vomiting and diarrhea who is a type I diabetic with end-stage renal disease. Differential diagnosis: Etiologies such as DKA, diarrheal illness, psychiatric, metabolic, infection, hypo/hyperglycemia, electrolyte abnormalities, cardiac sources, intracerebral event, toxicologic, neurologic, as well as others were entertained. Physical examination: As above. ER treatment provided: IV Lock Reglan IV, IV fluids, insulin On reassessment the patient felt better. Diagnostics interpretation by me: EKG: Reason: Weak and vomiting in a diabetic patient ECG: Normal sinus, normal intervals, T wave inversions in V3 and V4, poor baseline, rate of 95. EKG compared to prior EKG from December 24 with new T wave inversions. Impression normal sinus rhythm with T wave inversions interpreted by myself. I think arrhythmia is unlikely. EKG shows normal sinus rhythm with no interval abnormalities such as QT prolongation or WPW. There are no findings to suggest Brugada syndrome. Cardiac monitoring in the emergency department reveals no tachycardic or bradycardic dysrhythmia. Hypertrophic cardiomyopathy was considered but there are no clear historical elements pointing toward this. EKG is not suggestive. The QRS voltage is not extremely large and there are no suggestive Q waves. The labs revealed hyperglycemia. pH is 7.1. Concerns for DKA. Elevated anion gap. Extremely low bicarb Blood sugar 566 Leukocytosis Consultation: A consultation was placed with the hospitalist, Dr. Loyola. The case was discussed and diagnostics were reviewed. The patient was evaluated in the ER for further treatment. Exam and history seem consistent with DKA with vomiting and dehydration. Patient is a type I diabetic with end-stage renal disease. He was dialyzed yesterday morning. No repeat labs. He was discharged yesterday afternoon. He states once he was discharged he kept on vomiting and was feeling weak with diarrhea. Patient was gently hydrated as above. He was given insulin. Medicine was consulted. Patient is agreeable treatment plan of admission. Patient was reassessed multiple times. Blood sugar was checked multiple times. AG Is quite high. pH is low on VBG and ABG was ordered. Bicarb is extremely low. With patient having end-stage renal disease, he was gently hydrated. He was given insulin. By the evaluation outlined above emergent etiologies such as cardiac sources, intracerebral event, neurologic, as well as others were deemed relatively unlikely. The pt informed about the findings as listed above. All questions were answered and pleased with the treatment. Case reviewed with my attending The chart was completed utilizing [employer] voice recognition software. Grammatical errors, random word insertions, pronoun errors, and incomplete sentences are an occassional consequence of this system due to software limitations, ambient noise, and hardware issues. Any formal questions or concerns about the content, text, or information contained within the body of this dictation should be directly addressed to the physician assistant professor of life sciences for clarification. Impression & Plan DKA, type 1, Vomiting Critical Care Time Critical Care Time: Yes Total Critical Care Time: 30 I have personally spent greater than 30 minutes of critical care time in the direct management of this patient. This includes bedside care, interpretation of diagnostic studies, and testing, discussion with consultants, patient, and family members, and other required patient management activities. This 30 minutes is in excess of all separately billable procedures. Discharge Plan Visit Data Chief Complaint: Hyperglycemia Stated Complaint: HYPERGLYCEMIA 600+ ED Provider: Galen Ng ED Midlevel Provider: Nika Christiansen Discharge Problem: DKA, type 1, Vomiting Patient Disposition: Admitted As Inpatient Condition: Fair Forms Stand Alone Forms: My [facility] Prescriptions Prescriptions: No Action atorvastatin 10 mg tablet 10 mg PO QAM RF: 0 Humalog U-100 Insulin 100 unit/mL Cartridge 1 sliding scale dose SUBCUT CONT RF: 0 cholecalciferol (vitamin D3) [Vitamin D3] 2,000 unit Capsule 2,000 unit PO QAM RF: 0 metoclopramide HCl 5 mg tablet 5 mg PO TID RF: 0 prochlorperazine [Compazine] 25 mg Suppository 25 mg ID DAILY PRN (Reason: Nausea) RF: 0 amlodipine 10 mg tablet 10 mg PO QAM RF: 0 Chris Caps 1 mg capsule 1 cap PO DAILY RF: 0 calcium acetate 667 mg capsule See Rx Instructions .ROUTE .COMPLEX MDD 7 CAPSULES/DAY RF: 0 famotidine 20 mg Tablet 20 mg PO QAM Qty: 30 RF: 5 sertraline 100 mg tablet 200 mg PO QAM Qty: 60 RF: 0 Referrals Referrals: Cory Celestin MD [Primary Care Provider] - Discharge Problem: DKA, type 1 Qualifiers: Diabetes mellitus complication detail: without coma Qualified Code(s): E10.10 - Type 1 diabetes mellitus with ketoacidosis without coma
[2018-12-28] MEDS ORDERED: SODIUM CHLORIDE 0.9% 1000ML 250 ML IV ONE (23:24)
[2018-12-28 23:25] LABS: Hematocrit (blood only) 36.7 % (42-52); Hemoglobin 11.2 g/dL (14.0-18.0); Mean Corpuscular Hgb Conc 30.5 g/dL (32-36); Mean Corpuscular Volume 98.7 fL (80-100); Mean Platelet Volume 10.1 fL (7.4-10.4); Platelet Count 241 K/uL (130-400); RDW Coefficient of Variation 14.5 % (11.5-14.5); RDW Standard Deviation 51.6 fL (36.4-46.3); Red Blood Count 3.72 M/uL (4.7-6.1); White Blood Count 18.52 K/uL (4.8-10.8)
[2018-12-28 23:38] LABS: INR 1.2 (0.9-1.1); Partial Thromboplastin Ratio 1.1; Partial Thromboplastin Time 30.5 Seconds (21.0-31.0); Prothrombin Time 11.8 Seconds (9.0-12.0)
[2018-12-28 23:41] LABS: Base Excess VBG -21.5 mEq/L; HCO3 VBG 6 mmol/L; Oxygen Saturation VBG 92.3 %; PCO2 VBG 20 mmHg (38-50); PO2 VBG 108 mmHg; pH VBG 7.11 (7.36-7.41)
[2018-12-29 00:03] LABS: Alanine Aminotransferase 20 U/L (12-78); Albumin Globulin Ratio 1.1 (0.9-2); Albumin Level 3.6 gm/dl (3.4-5.0); Alkaline Phosphatase 109 U/L (45-117); Aspartate Aminotransferase 17 U/L (15-37); BUN Creatinine Ratio 10.2 (10-20); Basophils # (auto) 0.03 K/uL (0-0.2); Basophils % (auto) 0.2 %; Bilirubin,Total 0.4 mg/dl (0.2-1); Blood Urea Nitrogen 63 mg/dl (7-18); Calcium 8.2 mg/dl (8.5-10.1); Carbon Dioxide 5 mmol/L (21-32); Chloride 88 mmol/L (98-107); Est GFR (African American) 11.5; Est GFR (Non-African American) 9.9; Globulin 3.2 gm/dl (2.5-4.0); Glucose 607 mg/dl (70-99); Immature Granulocytes # (auto) 0.08 K/uL (0.00-0.02); Immature Granulocytes % (auto) 0.4 %; Lymphocytes # (auto) 0.75 K/uL (1.2-3.4); Magnesium 2.4 mg/dl (1.8-2.4); Monocytes # (auto) 0.56 K/uL (0.11-0.59); Neutrophils % (auto) 92.4 %; Potassium 4.4 mmol/L (3.5-5.1); Sodium 128 mmol/L (136-145); Total Protein 6.8 gm/dl (6.4-8.2); Troponin I < 0.015 ng/ml (0-0.045)
[2018-12-29] MEDS ORDERED: NovoLIN-R INSULIN PER UNIT CHARGE IV STA ×2 (00:24→02:31)
[2018-12-29] MEDS ORDERED: SODIUM CHLORIDE 0.9% 1000ML 250 ML IV ONE (00:24)
--- NOTE | 2018-12-29 00:55 | Emergency Department Note ---
ED Visit Note The patient presents with hyperglycemia findings concerning for DKA. The patient has issues with vomiting. He has been here previously. Laboratory studies suggest a metabolic acidosis with hyperglycemia. I have personally seen and evaluated the patient with the physician insurance claims assistant. I agree with the diagnostic/management decisions and have personally been involved in these decisions and agree with the diagnosis. .
[2018-12-29 01:02] LABS: Beta-Hydroxybutyrate 146.79 mg/dl (0.2-2.81)
[2018-12-29 01:36] LABS: Base Excess ABG -16.5 mEq/L (-9-1.8); HCO3 ABG 9 mmol/L (19-24); PCO2 ABG 22 mmHg (35-46); PO2 ABG 120 mm/Hg (80-95); pH ABG 7.24 (7.35-7.45)
[2018-12-29 01:37] LABS: Allen Test Pos (Pos)
[2018-12-29] MEDS ORDERED: SODIUM CHLORIDE 0.9% 1000ML 500 ML IV ONE (02:32)
--- NOTE | 2018-12-29 02:45 | History & Physical Report ---
Date of Service December 29, 2018 Assessment & Plan (1) DKA, type 1: pH 7.24, PCO2 22, PO2 120 and O2 sat 98%. Bicarb 5, sodium 128. Glucose initially 607, improved to 433 after 10 units of regular insulin IV and 500 cc normal saline provided by the ED. I have ordered an additional 10 units of regular insulin IV and 500 cc of normal saline to be given in the ED prior to transfer to the PCU. We will place the patient on Accu-Cheks with Humalog coverage. Will continue to hold his insulin pump. Will continue to pulse regular insulin IV as needed. We will repeat ABG in the a.m. The patient has demonstrated that he is not a good candidate for an insulin pump. His outpatient physician should consider him for long-acting insulin with short acting coverage until he can demonstrate appropriate control. In the interim, the patient should be transferred to a senior care facility upon discharge after this visit, as he was only able to stay out of the hospital for less than 12 hours. Present on Admission?: Yes (2) Gastroparesis: Continue metoclopramide 5 mg p.o. 3 times daily. As I explained to his father, there is a long-term issue with gastroparesis in diabetics. There is also a short-term exacerbation that occurs when glucose is above 200, and therefore it is very important that his sugars be maintained below 200. Present on Admission?: Yes (3) End-stage renal disease on hemodialysis: Last dialysis was on Thursday, 12/27. His next dialysis date was scheduled for Thursday, 12/29. We will consult his senior ux designer Suman Montilla MD. for dialysis in the a.m. Present on Admission?: Yes (4) HTN (hypertension): Continue amlodipine 10 mg p.o. every morning. Present on Admission?: Yes (5) Anxiety with depression: Continue sertraline 20 mg every morning. Should consider a psychiatry consult while in hospital. Present on Admission?: Yes (6) History of noncompliance with medical treatment, presenting hazards to health: Patient has recurrent issue of dietary noncompliance. Noted in last admissions records and intake of a can of soda which brought her sugar up to over 420. Suspect that this is also involvement with his lack of control at home. He should be considered for discharge to a nursing facility at least short-term to help with his medical care. Do not consider him to be an appropriate candidate for insulin pump. Present on Admission?: Yes (7) Hyperlipidemia LDL goal <70: Continue atorvastatin 10 mg every morning Present on Admission?: Yes (8) Acid reflux: Increase famotidine 20 mg to twice daily Present on Admission?: Yes History of Present Illness Chief Complaint: The patient presents to the emergency department with his usual complaints of abdominal discomfort, intractable nausea and vomiting with diarrhea. Primary Care Provider: Cory Celestin MD The patient is a 48-year-old noncompliant diabetic male, who was just discharged from the hospital less than 12 hours ago, who returns with his usual complaints of intractable nausea, vomiting and loose stools. He is accompanied by his father, who admits to not being able to help his son with his insulin pump and dietary choices. Work-up in the emergency department included laboratories suggestive of DKA, with glucose of 607, bicarb of 5, sodium 128, BUN 63 and creatinine 6.13. ABG was added onto my request with the following results pH 7.24 PCO2 22 PO2 120 bicarb 9 and O2 sat 98.0. The patient was given a total of 500 cc of normal saline and 10 units of regular insulin IV, with an improvement of glucose to 433. I have given him an additional 10 units of regular insulin IV and 500 cc of normal saline to be given while in the ED, and the patient will then be admitted to full telemetry bed. Allergies Allergy/AdvReac Type Severity Reaction Status Date / Time shellfish derived Allergy Severe anaphylaxis Verified 12/29/18 00:59 codeine Allergy Intermediate Hives Verified 12/29/18 00:59 promethazine Allergy Intermediate itchy/hives Verified 12/29/18 00:59 Home Medications Home Medications Medication Instructions Recorded Confirmed Type Humalog U-100 Insulin 1 sliding scale dose SUBCUT CONT 09/10/18 12/29/18 History atorvastatin 10 mg PO QAM 09/10/18 12/29/18 History Chris Caps 1 cap PO DAILY 12/19/18 12/29/18 History amlodipine 10 mg PO QAM 12/19/18 12/29/18 History calcium acetate See Rx Instructions .ROUTE 12/19/18 12/29/18 History .COMPLEX MDD 7 CAPSULES/DAY cholecalciferol (vitamin D3) 2,000 unit PO QAM 12/23/18 12/29/18 History [Vitamin D3] famotidine 20 mg PO QAM #30 tab 12/23/18 12/29/18 Rx metoclopramide HCl 5 mg PO TID 12/23/18 12/29/18 History prochlorperazine [Compazine] 25 mg AR DAILY PRN 12/23/18 12/29/18 History sertraline 200 mg PO QAM #60 tab 12/28/18 12/29/18 Rx Past Med/Surg History Medical History Acid reflux Hypertension Type I diabetes mellitus Insulin pump (diagnosed at age 31) Gastroparesis due to DM Depression Anemia Anxiety CAD (coronary artery disease) mild, non-obstructive CAD per 10/2018 cardiac cath ESRD (end stage renal disease) Hemodialysis M,W,F (Follows with Dr. Taylor Higgins; [facility]). Kidney stones Peripheral neuropathy Retinopathy due to secondary diabetes Surgical History History of appendectomy H/O shoulder surgery RIGHT History of hip surgery LEFT HIP ARTHROSCOPY History of cardiac cath 10/2018= no stents, no obstructive disease (at [facility]) History of lithotripsy Permanent central venous catheter in place Permacath Family History Grandfather Myocardial infarction Grandfather (Maternal) Family history of diabetes mellitus Social History Preferred Language: Somali Communication Ability: Effective Beliefs That Will Affect Care: None marital status: Legally Current Living Situation: Family current occupational status: employed Feels Safe at Home: Yes Smoking Status: Never smoker Tobacco Type: smokeless tobacco Second Hand Exposure: No Hx Alcohol Use: No Hx Substance Use: No Review of Systems Review of Systems: Unobtainable due to cognitive status Physical Exam Physical Exam: The patient is nonresponsive, normocephalic and atraumatic, lying in bed and in no acute distress. HEENT--PERRL, EOMI, mucous membranes and oropharynx dry. Neck--supple. No JVD. No bruits. Thyroid normal, trachea midline, no adenopathy. Heart--tachycardic and regular. Normal S1 and S2. No murmurs, rubs or gallops. Lungs--clear bilaterally, no respiratory distress, no accessory muscle use. Abdomen--normal bowel sounds and soft. Nontender. Nondistended, no hernias or masses, no organomegaly. Extremities--no cyanosis or clubbing. No edema. Dermatologic--normal skin turgor, normal color, no abnormal lymph nodes, no rash. Neurologic--cranial nerves II through XII grossly intact. Rheumatologic--limited exam Psychiatric--nonresponsive Results & Data Vital Signs (Past 12 Hours) Vital Signs Temp Pulse Resp BP Pulse Ox 12/29/18 02:01 93 H 97 12/29/18 02:00 93 H 185/96 H 97 12/29/18 01:30 93 H 97 12/29/18 01:01 93 H 21 97 12/29/18 01:00 93 H 19 177/90 H 97 12/29/18 00:30 94 H 15 98 12/29/18 00:01 95 H 17 98 12/29/18 00:00 95 H 18 170/86 H 98 12/28/18 23:30 95 H 14 97 12/28/18 23:25 93 H 158/76 H 97 12/28/18 23:01 94 H 19 12/28/18 22:49 97.3 F L 93 H 20 120/52 L 98 Laboratory Results Laboratory Results WBC 18.52 K/uL (4.8-10.8) H 12/28/18 23:13 RBC 3.72 M/uL (4.7-6.1) L 12/28/18 23:13 Hgb 11.2 g/dL (14.0-18.0) L 12/28/18 23:13 Hct 36.7 % (42-52) L 12/28/18 23:13 MCV 98.7 fL (80-100) 12/28/18 23:13 MCH 30.1 pg (25-34) 12/28/18 23:13 MCHC 30.5 g/dL (32-36) L 12/28/18 23:13 RDW Std Deviation 51.6 fL (36.4-46.3) H 12/28/18 23:13 RDW Coeff of Kami 14.5 % (11.5-14.5) 12/28/18 23:13 Plt Count 241 K/uL (130-400) 12/28/18 23:13 MPV 10.1 fL (7.4-10.4) 12/28/18 23:13 Immature Gran % (Auto) 0.4 % 12/28/18 23:13 Neut % (Auto) 92.4 % 12/28/18 23:13 Lymph % (Auto) 4.0 % 12/28/18 23:13 Mesa % (Auto) 3.0 % 12/28/18 23:13 Eos % (Auto) 0.0 % 12/28/18 23:13 Baso % (Auto) 0.2 % 12/28/18 23:13 Immature Gran # (Auto) 0.08 K/uL (0.00-0.02) H 12/28/18 23:13 Neut # (Auto) 17.10 K/uL (1.4-6.5) H 12/28/18 23:13 Lymph # (Auto) 0.75 K/uL (1.2-3.4) L 12/28/18 23:13 Mesa # (Auto) 0.56 K/uL (0.11-0.59) 12/28/18 23:13 Eos # (Auto) 0.00 K/uL (0-0.5) 12/28/18 23:13 Baso # (Auto) 0.03 K/uL (0-0.2) 12/28/18 23:13 PT 11.8 Seconds (9.0-12.0) 12/28/18 23:13 INR 1.2 (0.9-1.1) H 12/28/18 23:13 APTT 30.5 Seconds (21.0-31.0) 12/28/18 23:13 PTT Ratio 1.1 12/28/18 23:13 ABG pH 7.24 (7.35-7.45) L 12/29/18 01:19 ABG pCO2 22 mmHg (35-46) L 12/29/18 01:19 ABG pO2 120 mm/Hg (80-95) H 12/29/18 01:19 ABG HCO3 9 mmol/L (19-24) L 12/29/18 01:19 ABG O2 Saturation 98.0 % (90-95) H 12/29/18 01:19 ABG Base Excess -16.5 mEq/L (-9-1.8) L 12/29/18 01:19 Eder Test Pos (Pos) 12/29/18 01:19 VBG pH 7.11 (7.36-7.41) L 12/28/18 23:13 VBG pCO2 20 mmHg (38-50) L 12/28/18 23:13 VBG pO2 108 mmHg 12/28/18 23:13 VBG HCO3 6 mmol/L 12/28/18 23:13 VBG O2 Saturation 92.3 % 12/28/18 23:13 VBG Base Excess -21.5 mEq/L 12/28/18 23:13 Oxygen Given RA 12/29/18 01:19 Sodium 128 mmol/L (136-145) L 12/28/18 23:13 Potassium 4.4 mmol/L (3.5-5.1) 12/28/18 23:13 Chloride 88 mmol/L (98-107) L 12/28/18 23:13 Carbon Dioxide 5 mmol/L (21-32) L* 12/28/18 23:13 Anion Gap 35.0 (3-11) H 12/28/18 23:13 BUN 63 mg/dl (7-18) H 12/28/18 23:13 Creatinine 6.13 mg/dl (0.6-1.4) H* D 12/28/18 23:13 Est Cr Clr Drug Dosing Not Reportable 12/28/18 23:13 Est GFR ( Amer) 11.5 12/28/18 23:13 Est GFR (Non-Af Amer) 9.9 12/28/18 23:13 BUN/Creatinine Ratio 10.2 (10-20) 12/28/18 23:13 Glucose 607 mg/dl (70-99) H* 12/28/18 23:13 POC Glucose 433 (70-99) H* 12/29/18 02:26 POC Lactic Acid Evan 2.86 mmol/L (0.90-1.70) H 12/28/18 23:47 Calcium 8.2 mg/dl (8.5-10.1) L 12/28/18 23:13 Magnesium 2.4 mg/dl (1.8-2.4) 12/28/18 23:13 Total Bilirubin 0.4 mg/dl (0.2-1) 12/28/18 23:13 AST 17 U/L (15-37) 12/28/18 23:13 ALT 20 U/L (12-78) 12/28/18 23:13 Alkaline Phosphatase 109 U/L (45-117) 12/28/18 23:13 Troponin I < 0.015 ng/ml (0-0.045) 12/28/18 23:13 Total Protein 6.8 gm/dl (6.4-8.2) 12/28/18 23:13 Albumin 3.6 gm/dl (3.4-5.0) 12/28/18 23:13 Globulin 3.2 gm/dl (2.5-4.0) 12/28/18 23:13 Albumin/Globulin Ratio 1.1 (0.9-2) 12/28/18 23:13 Beta-Hydroxybutyric Acd 146.79 mg/dl (0.2-2.81) H 12/28/18 23:13 Code Status & VTE Plan Code Status Full code VTE Prophylaxis Plan VTE Prophylaxis will be ordered: Yes PG Care Time/CCT Total # of Minutes Spent Total Time Spent with Patient: Total time spent is greater than 50% in coordination of care (as documented) at patient's floor/unit and/or counseling patient: (1) DKA, type 1 Diabetes mellitus complication detail: without coma Qualified Code(s): E10.10 - Type 1 diabetes mellitus with ketoacidosis without coma (2) HTN (hypertension) Hypertension type: essential hypertension Qualified Code(s): I10 - Essential (primary) hypertension
[2018-12-29] MEDS ORDERED: GLUCOSE 40% GEL 15 GM TUBE PO PRN (03:56)
[2018-12-29] MEDS ORDERED: GLUCAGON FOR INJ 1 MG VIAL SQ PRN (03:56)
[2018-12-29] MEDS ORDERED: DEXTROSE 50% 50 ML SYRINGE IV PRN (03:56)
[2018-12-29] MEDS ORDERED: CARBOHYDRATES FOR HYPOGLYCEMIA PO PRN (03:56)
[2018-12-29] MEDS ORDERED: ACETAMINOPHEN 1000 MG/100 ML IV IV PRN (03:56)
[2018-12-29] MEDS ORDERED: GLUCOSE 10 TABS/TUBE PO PRN (03:56)
[2018-12-29] MEDS ORDERED: ACETAMINOPHEN 325 MG TAB PO PRN (03:56)
[2018-12-29] MEDS ORDERED: CALCIUM ACETATE 667 MG CAP PO PRN (04:03)
[2018-12-29] MEDS ORDERED: INSULIN ASPART 100 UNITS/ML 3 ML PEN SC SCH (07:30)
[2018-12-29] MEDS ORDERED: PHARMACY GLYCEMIC MGMT CONSULT PRN (07:51)
[2018-12-29] MEDS: INSULIN REGULAR 250 UNITS in SODIUM CHLORIDE 0.9% 247.5 ML IV SCH (08:17)
[2018-12-29] MEDS: INSULIN ASPART 100 UNITS/ML 3 ML PEN SC SCH ×4 (08:21→20:24)
[2018-12-29] MEDS: CALCIUM ACETATE 667 MG CAP PO SCH ×3 (08:22→16:10)
[2018-12-29] MEDS: ONDANSETRON INJ 2 MG/ML 2 ML VIAL IV PRN ×2 (08:24→15:42)
[2018-12-29 08:25] LABS: Albumin Level 3.4 gm/dl (3.4-5.0); BUN Creatinine Ratio 10.2 (10-20); Calcium 8.1 mg/dl (8.5-10.1); Est GFR (African American) 11.2; Est GFR (Non-African American) 9.7; Phosphorus 6.7 mg/dl (2.5-4.9); Potassium 4.3 mmol/L (3.5-5.1)
[2018-12-29 09:20] LABS: Beta-Hydroxybutyrate 110.83 mg/dl (0.2-2.81)
[2018-12-29] MEDS: AMLODIPINE BESYLATE 5 MG TAB PO SCH (09:39)
[2018-12-29] MEDS: METOCLOPRAMIDE HCL 5 MG TABLET PO SCH ×3 (09:39→20:25)
[2018-12-29] MEDS: NEPHROCAPS PO SCH (09:40)
[2018-12-29] MEDS: FAMOTIDINE 20 MG TAB PO SCH (09:40)
[2018-12-29] MEDS: CHOLECALCIFEROL 1,000 UNITS TAB PO SCH (09:40)
[2018-12-29] MEDS: SERTRALINE HCL 100 MG TABLET PO SCH (09:40)
[2018-12-29] MEDS: HEPARIN SOD 5,000 UNIT/0.5 ML VIAL SQ SCH ×4 (09:41→20:31)
[2018-12-29] MEDS: ATORVASTATIN 10 MG TAB PO SCH (09:42)
[2018-12-29] MEDS ORDERED: INSULIN GLARGINE SOLOSTAR 100 UNITS/ML 3 ML PEN SC ONE (10:30)
--- NOTE | 2018-12-29 13:17 | Pharmacy Report ---
Glycemic Control Consultation - Date of Service December 29, 2018 - Scope Scope: Glycemic Pharmacist consulted by Dr Rey on 12/29/18 for glycemic control and to write orders per [facility] inpatient glycemic control protocol - Objective Weight: 58.9 kg Accuchecks BSG (last 24hrs): 12/28/18 12/28/18 12/28/18 22:51 22:52 23:13 Glucose 607 H* POC Glucose 575 H* 566 H* 12/29/18 12/29/18 12/29/18 00:04 00:05 01:11 Glucose POC Glucose 581 H* 520 H* 465 H* 12/29/18 12/29/18 12/29/18 01:13 02:25 02:26 Glucose POC Glucose 507 H* 431 H* 433 H* 12/29/18 12/29/18 12/29/18 03:17 03:19 05:03 Glucose POC Glucose 399 H* 429 H* 330 H* 12/29/18 12/29/18 12/29/18 06:08 07:17 07:31 Glucose 373 H* POC Glucose 331 H* 358 H* 12/29/18 12/29/18 12/29/18 07:32 09:18 09:19 Glucose POC Glucose 380 H* 377 H* 349 H* 12/29/18 12/29/18 12/29/18 10:18 10:19 11:17 Glucose POC Glucose 322 H* 343 H* 300 H 12/29/18 12:20 Glucose POC Glucose 244 H Laboratory Data (last 24hrs): 12/28/18 12/29/18 23:13 07:17 Potassium 4.4 4.3 Carbon Dioxide 5 L* 11 L Anion Gap 35.0 H 27.0 H Creatinine 6.13 H* D 6.25 H* Est Cr Clr Drug Dosing Not Reportable 12.0 Beta-Hydroxybutyric Acd 146.79 H 110.83 H - Recent Pertinent Medications Outpatient Anti-diabetic Regimen: * Insulin pump: 0585-1771: .5u/hr, [id number]: .6u/hr, [id number]: 1u/hr. Roughly 20units of basal insulin/D. CF/CR 35/10 respectively. Goal range 100-130 * A1c = unreliable in ESRD - Assessment & Plan Assessment & Plan: ASSESSMENT: * Mr De Los Santos readmitted yesterday evening, after he was d/c'd in the afternoon . P/w DKA, BSGs in the 600s. HCO3/CO2 below goal range. At this juncture there is a question of his (or family's) ability to manage the insulin pump at home. CDE met with pt this morning to ensure pump was not malfunctioning. It is working properly. Pt rotates injection site correctly. There will be a f/u to see if he would be willing/able to try a simplified basal/bolus regimen. Pos sibly consisting of lantus and regular insulin. * At this point in time, we will maintain him on an insulin infsn. His current insulin requirements differ vastly from his pump settings. Gastroparesis continues. PLAN FOR INPATIENT GLYCEMIC CONTROL: * Starting IV insulin infusion per moderate stress protocol * Goal Range - 150 - 250 mg/dl * In the critical care setting, continuous IV insulin infusion has been shown to be the best method for achieving glycemic targets. * Will provide lantus 10units X1 * Please note that the plan above was derived based on current level of insulin resistance and hospital stress. These recommendations are appropriate for inpatient admission only. Plan of care upon discharge will need to be reassessed to avoid potential outpatient hypo/hyperglycemia. Thank you.
--- NOTE | 2018-12-29 15:38 | History & Physical Bridge Note ---
Date of Service December 29, 2018 History & Physical Bridge Note Patient seen and examined today. Still with significant nausea and vomiting. Blood sugar is coming down on an insulin infusion. Seen by DM educator with thought that perhaps his insulin pump is not a workable solution for his DM at this time. - Repeat BMP this afternoon to check anion gap - Work on nausea control - Try to determine long-term insulin needs via infusion
[2018-12-29 16:33] LABS: BUN Creatinine Ratio 10.5 (10-20); Calcium 8.5 mg/dl (8.5-10.1); Creatinine Clr Calc Pharmacy 11.7 ml/min; Est GFR (African American) 10.8; Est GFR (Non-African American) 9.3; Magnesium 2.3 mg/dl (1.8-2.4); Potassium 3.8 mmol/L (3.5-5.1)
[2018-12-29] MEDS ORDERED: METOCLOPRAMIDE HCL INJ 5 MG/ML 2 ML VIAL IV ONE (19:43)
[2018-12-29] MEDS ORDERED: METOPROLOL TARTRATE 1 MG/ML VIAL IV STA (23:43)
[2018-12-30] MEDS: ONDANSETRON INJ 2 MG/ML 2 ML VIAL IV PRN ×2 (03:11→14:17)
[2018-12-30] MEDS: INSULIN ASPART 100 UNITS/ML 3 ML PEN SC SCH ×4 (07:57→21:00)
[2018-12-30] MEDS: HEPARIN SOD 5,000 UNIT/0.5 ML VIAL SQ SCH ×2 (08:06→21:00)
[2018-12-30] MEDS: CALCIUM ACETATE 667 MG CAP PO SCH ×3 (08:07→16:58)
[2018-12-30] MEDS: METOCLOPRAMIDE HCL 5 MG TABLET PO SCH ×3 (08:07→21:07)
[2018-12-30] MEDS: AMLODIPINE BESYLATE 5 MG TAB PO SCH (08:09)
[2018-12-30] MEDS: ATORVASTATIN 10 MG TAB PO SCH (08:09)
[2018-12-30] MEDS: CHOLECALCIFEROL 1,000 UNITS TAB PO SCH (08:10)
[2018-12-30] MEDS: SERTRALINE HCL 100 MG TABLET PO SCH (08:10)
[2018-12-30] MEDS: NEPHROCAPS PO SCH (08:10)
[2018-12-30] MEDS: FAMOTIDINE 20 MG TAB PO SCH (08:11)
[2018-12-30] MEDS ORDERED: INSULIN GLARGINE SOLOSTAR 100 UNITS/ML 3 ML PEN SC SCH (09:00)
--- NOTE | 2018-12-30 09:49 | Pharmacy Report ---
Pharmacy Glycemic Short Note 2 - Date of Service December 30, 2018 - Glycemic Short BSG Results (Last 24 hours): 12/29/18 12/29/18 12/29/18 10:18 10:19 11:17 Glucose POC Glucose 322 H* 343 H* 300 H 12/29/18 12/29/18 12/29/18 12:20 13:17 14:18 Glucose POC Glucose 244 H 218 H 160 H 12/29/18 12/29/18 12/29/18 15:42 16:06 17:05 Glucose 147 H POC Glucose 149 H 135 H 12/29/18 12/29/18 12/29/18 18:01 19:17 20:10 Glucose POC Glucose 126 H 90 94 12/29/18 12/29/18 12/30/18 22:09 23:07 00:06 Glucose POC Glucose 198 H 182 H 147 H 12/30/18 12/30/18 12/30/18 01:04 02:01 03:03 Glucose POC Glucose 124 H 109 H 136 H 12/30/18 12/30/18 12/30/18 04:03 04:56 06:05 Glucose POC Glucose 186 H 203 H 175 H 12/30/18 12/30/18 07:07 08:04 Glucose POC Glucose 154 H 122 H OUTPATIENT ANTIDIABETIC REGIMEN: * Humalog insulin pump * Basal rates: 9528-1032: .5u/hr, 7179-1959: .6u/hr, 3232-5738: 1u/hr. Roughly 20units of basal insulin/D. CF/CR 35/10 respectively. Goal range 100-130 * A1c = unreliable in ESRD ASSESSMENT: * 48yo brittle T1DM male well known to pharmacy from previous admissions/glyc emic consults * Pt initiated on IV insulin infusion for DKA; insulin infusion was overlapped with Lantus 10 units * Pt meets criteria for transitioning off of IV insulin infusion this morning. Will dose SQ basal bolus similar to outpatient pump settings and previous admission dosing. * PO intake is poor- will reduce dosing slightly PLAN FOR INPATIENT GLYCEMIC CONTROL: * Hold outpatient insulin pump until DC * Basal insulin * Lantus 14 units SQ Q24hrs given in the morning * Bolus insulin * NovoLog per scale ACHS or Q6hrs while NPO * Goal Range: Low 120 mg/dL - High 150 mg/dL * Correction Factor: 30 mg/dL/unit * Nutritional / Prandial insulin per carb ratio of 1 unit per 9 grams CHO consumed
--- NOTE | 2018-12-30 10:20 | Nephrology Consultation ---
Date of Consultation December 30, 2018 Assessment & Plan (1) ESRD (end stage renal disease): ESRD patient on dialysis Thursday. His last dialysis was on Thursday while admitted early in the week. He missed dialysis yesterday due to hypoglycemia and vomiting. His electrolytes are stable. Due to excessive vomiting, his intake has been poor. We will hold off on dialysis today. We will plan to do dialysis tomorrow. (2) DKA, type 1: Patient currently on insulin drip per primary team. Blood sugars are improving. We will hold off dialysis due to ongoing vomiting and poor p.o. intake. (3) Anemia: Hemoglobin of 11.2 which is at target. No need for Epogen (4) HTN (hypertension): Blood pressure is above target today but could to be in setting of vomiting his oral meds. Please give IV hydralazine as needed until able to tolerate oral meds. Continue current regimen. History of Present Illness Reason for Consultation: ESRD complicated by DKA Requesting Physician: Sergo eRy MD Attending Physician: Sergo Rey MD History of Present Illness This is a 48 y/o m with a history of DMI, HTN, HLD, systolic CHF, ESRD on HD MWF at [facility], severe gastroparesis with intractable vomiting, severe depression who was readmitted on 12/29 for vomiting found to have DKA. Patient was discharged on 12/28 only to be readmitted 12 hours later. It appears his insulin pump is not working well. His blood sugars when the 600s on once daily early intervention specialist. He was having abdominal pain and vomiting which prompted ER visit. His last dialysis was on Thursday while he was admitted here. He has a tunneled dialysis catheter. This morning is complaining of nausea and vomiting. No shortness of breath. No leg swelling. His blood pressure is on the high side. He is on an insulin drip. I have been asked to provide dialysis support. Allergies Allergy/AdvReac Type Severity Reaction Status Date / Time shellfish derived Allergy Severe anaphylaxis Verified 12/29/18 00:59 codeine Allergy Intermediate Hives Verified 12/29/18 00:59 promethazine Allergy Intermediate itchy/hives Verified 12/29/18 00:59 Home Medications Home Medications Medication Instructions Recorded Confirmed Type Humalog U-100 Insulin 1 sliding scale dose SUBCUT CONT 09/10/18 12/29/18 History atorvastatin 10 mg PO QAM 09/10/18 12/29/18 History K[place]haw Caps 1 cap PO DAILY 12/19/18 12/29/18 History amlodipine 10 mg PO QAM 12/19/18 12/29/18 History calcium acetate See Rx Instructions .ROUTE 12/19/18 12/29/18 History .COMPLEX MDD 7 CAPSULES/DAY cholecalciferol (vitamin D3) 2,000 unit PO QAM 12/23/18 12/29/18 History [Vitamin D3] famotidine 20 mg PO QAM #30 tab 12/23/18 12/29/18 Rx metoclopramide HCl 5 mg PO TID 12/23/18 12/29/18 History prochlorperazine [Compazine] 25 mg WI DAILY PRN 12/23/18 12/29/18 History sertraline 200 mg PO QAM #60 tab 12/28/18 12/29/18 Rx Patient History Medical History Acid reflux Hypertension Type I diabetes mellitus Insulin pump (diagnosed at age 31) Gastroparesis due to DM Depression Anemia Anxiety CAD (coronary artery disease) mild, non-obstructive CAD per 10/2018 cardiac cath ESRD (end stage renal disease) Hemodialysis M,W,F (Follows with Dr. Taylor Higgins; [facility] Kidney stones Peripheral neuropathy Retinopathy due to secondary diabetes Surgical History History of appendectomy H/O shoulder surgery RIGHT History of hip surgery LEFT HIP ARTHROSCOPY History of cardiac cath 10/2018= no stents, no obstructive disease (at [facility]) History of lithotripsy Permanent central venous catheter in place Permacath Family History Grandfather Myocardial infarction Grandfather (Maternal) Family history of diabetes mellitus Social History Preferred Language: Panamanian Communication Ability: Effective Beliefs That Will Affect Care: None marital status: Single Current Living Situation: Parent current occupational status: employed Feels Safe at Home: Yes Smoking Status: Never smoker Tobacco Type: smokeless tobacco Second Hand Exposure: No Hx Alcohol Use: No Hx Substance Use: No Review of Systems Review of Systems: All systems reviewed & are unremarkable except as noted in HPI & below Physical Exam Physical Exam: General exam: Appears comfortable, no acute distress HEENT: Pupils are equal and reactive to light Neck: No JVD, neck is supple trachea is midline Respiratory system: Clear breath sounds bilaterally. Gastrointestinal: Abdomen is soft, non distended, non tender, bowel sounds are present CVS: Regular rate and rhythm. No murmurs, rubs or gallops Musculoskeletal: No joint or muscle tenderness Extremities: Non tender, no edema, peripheral pulses are present Neuro: Oriented, no tremors, no focal neurological deficits Skin: No rashes Results & Data Vital Signs (Past 12 Hours) Vital Signs Temp Pulse Pulse Resp BP Pulse Ox Pulse Ox 12/30/18 07:09 36.6 C 93 H 19 195/109 H 99 12/30/18 04:00 97 12/30/18 03:21 36.5 C 85 17 180/90 H 98 12/30/18 01:00 184/98 H 12/30/18 00:40 83 203/103 H 12/29/18 23:23 36.7 C 100 H 19 182/91 H 97 12/29/18 23:14 36.8 C 98 H 18 194/100 H 97 12/29/18 22:30 95 H Laboratory Results Laboratory Results - last 24 hr 12/29/18 12/29/18 12/29/18 10:18 10:19 11:17 Sodium Potassium Chloride Carbon Dioxide Anion Gap BUN Creatinine Est Cr Clr Drug Dosing Est GFR ( Amer) Est GFR (Non-Af Amer) BUN/Creatinine Ratio Glucose POC Glucose 322 H* 343 H* 300 H Calcium Phosphorus Magnesium 12/29/18 12/29/18 12/29/18 12:20 13:17 14:18 Sodium Potassium Chloride Carbon Dioxide Anion Gap BUN Creatinine Est Cr Clr Drug Dosing Est GFR ( Amer) Est GFR (Non-Af Amer) BUN/Creatinine Ratio Glucose POC Glucose 244 H 218 H 160 H Calcium Phosphorus Magnesium 12/29/18 12/29/18 12/29/18 15:42 16:06 17:05 Sodium 135 L Potassium 3.8 Chloride 99 Carbon Dioxide 18 L Anion Gap 19.0 H BUN 68 H Creatinine 6.45 H* Est Cr Clr Drug Dosing 11.7 Est GFR ( Amer) 10.8 Est GFR (Non-Af Amer) 9.3 BUN/Creatinine Ratio 10.5 Glucose 147 H POC Glucose 149 H 135 H Calcium 8.5 Phosphorus 5.0 H D Magnesium 2.3 12/29/18 12/29/18 12/29/18 18:01 19:17 20:10 Sodium Potassium Chloride Carbon Dioxide Anion Gap BUN Creatinine Est Cr Clr Drug Dosing Est GFR ( Amer) Est GFR (Non-Af Amer) BUN/Creatinine Ratio Glucose POC Glucose 126 H 90 94 Calcium Phosphorus Magnesium 12/29/18 12/29/18 12/30/18 22:09 23:07 00:06 Sodium Potassium Chloride Carbon Dioxide Anion Gap BUN Creatinine Est Cr Clr Drug Dosing Est GFR ( Amer) Est GFR (Non-Af Amer) BUN/Creatinine Ratio Glucose POC Glucose 198 H 182 H 147 H Calcium Phosphorus Magnesium 12/30/18 12/30/18 12/30/18 01:04 02:01 03:03 Sodium Potassium Chloride Carbon Dioxide Anion Gap BUN Creatinine Est Cr Clr Drug Dosing Est GFR ( Amer) Est GFR (Non-Af Amer) BUN/Creatinine Ratio Glucose POC Glucose 124 H 109 H 136 H Calcium Phosphorus Magnesium 12/30/18 12/30/18 12/30/18 04:03 04:56 06:05 Sodium Potassium Chloride Carbon Dioxide Anion Gap BUN Creatinine Est Cr Clr Drug Dosing Est GFR ( Amer) Est GFR (Non-Af Amer) BUN/Creatinine Ratio Glucose POC Glucose 186 H 203 H 175 H Calcium Phosphorus Magnesium 12/30/18 12/30/18 12/30/18 07:07 08:04 08:21 Sodium Potassium Chloride Carbon Dioxide Anion Gap BUN Creatinine Est Cr Clr Drug Dosing Est GFR ( Amer) Est GFR (Non-Af Amer) BUN/Creatinine Ratio Glucose POC Glucose 154 H 122 H 124 H Calcium Phosphorus Magnesium 12/30/18 12/30/18 08:37 09:03 Sodium Potassium Chloride Carbon Dioxide Anion Gap BUN Creatinine Est Cr Clr Drug Dosing Est GFR ( Amer) Est GFR (Non-Af Amer) BUN/Creatinine Ratio Glucose POC Glucose 119 H 126 H Calcium Phosphorus Magnesium (1) DKA, type 1 Diabetes mellitus complication detail: without coma Qualified Code(s): E10.10 - Type 1 diabetes mellitus with ketoacidosis without coma (2) Anemia Anemia type: due to chronic kidney disease Chronic kidney disease stage: on chronic dialysis Qualified Code(s): N18.6 - End stage renal disease; D63.1 - Anemia in chronic kidney disease; Z99.2 - Dependence on renal dialysis (3) HTN (hypertension) Hypertension type: essential hypertension Qualified Code(s): I10 - Essential (primary) hypertension
[2018-12-30 10:46] LABS: Hematocrit (blood only) 36.5 % (42-52); Hemoglobin 12.4 g/dL (14.0-18.0); Mean Corpuscular Volume 90.6 fL (80-100); Mean Platelet Volume 9.6 fL (7.4-10.4); Platelet Count 262 K/uL (130-400); RDW Coefficient of Variation 14.2 % (11.5-14.5); RDW Standard Deviation 46.8 fL (36.4-46.3); Red Blood Count 4.03 M/uL (4.7-6.1); White Blood Count 15.61 K/uL (4.8-10.8)
[2018-12-30] MEDS: INSULIN REGULAR 250 UNITS in SODIUM CHLORIDE 0.9% 247.5 ML IV SCH (10:46)
[2018-12-30 11:01] LABS: BUN Creatinine Ratio 10.4 (10-20); Calcium 8.8 mg/dl (8.5-10.1); Creatinine Clr Calc Pharmacy 10.9 ml/min; Est GFR (Non-African American) 8.7; Potassium 3.5 mmol/L (3.5-5.1)
--- NOTE | 2018-12-30 14:25 | Hospitalist Progress Note ---
Date of Service December 30, 2018 Assessment & Plan (1) Diabetes mellitus type 1, with complication, on moth exterminator insulin pump: Was discharged, and returned within 12 hours with blood sugar >600. Insulin pump and sensor were examined by the inclusion paraeducator (Paris Hernandez) and found to be in good working order. - Concern from family and staff is that he is not currently able to manage his DM due to his depression - Glycemic pharmacist is now managing his insulin. He was initially on an i nsulin drip. - Now on long-acting insulin with sliding scale - Will work with pharmacist to find a good regimen. (2) Gastroparesis: Ongoing issue. - Continue metoclopramide 5 mg p.o. 3 times daily. - On 12/30, got a dose of fosaprepitant 150mg IV x 1. (3) End-stage renal disease on hemodialysis: Follows with [facility] nephrology. - Consulted on admission. - HD per nephrology (4) Anxiety with depression: Discussed with psychiatry on 12/30. - Continue sertraline 200 mg every morning. - Will consider adding Wellbutrin (they will get back to me). (5) HTN (hypertension): BP elevated inpatient. - Continue amlodipine 10 mg p.o. every morning. - Hydralazine PRN (6) Hyperlipidemia LDL goal <70: Continue atorvastatin 10 mg every morning (7) Acid reflux: Increase famotidine 20 mg to twice daily (8) DVT prophylaxis: Heparin 5000 units BID Subjective Still reports intractable nausea and vomiting. Review of Systems Review of Systems: All systems reviewed & are unremarkable except as noted in HPI & below Physical Exam Constitutional: WD/WN, vitals as above + acute distress, + cachectic, + frail appearing and + lethargic Eyes: EOM intact bilaterally; no conjunctival abnormality ENMT: external ear and nose normal, oropharynx normal Neck: trachea midline, no thyromegaly normal visual inspection Respiratory: normal respiratory effort, lungs clear to auscultation no respiratory distress Cardiovascular: RRR, no murmur, no edema Gastrointestinal (Abdomen): Inspection/Auscultation: abdomen normal to inspection; abdomen not distended Musculoskeletal: no cyanosis or clubbing, extremities motor strength 5/5 Skin: no rashes, warm and dry Neurologic: moves all extremities and awake Psychiatric: Orientation: alert, oriented to person and cooperative Results & Data Vital Signs (Past 12 Hours) Vital Signs Temp Pulse Pulse Resp BP Pulse Ox Pulse Ox 12/30/18 11:04 36.4 C L 94 H 19 187/109 H 97 12/30/18 08:00 94 H 12/30/18 07:09 36.6 C 93 H 19 195/109 H 99 12/30/18 04:00 97 12/30/18 03:21 36.5 C 85 17 180/90 H 98 PG Care Time/CCT Total # of Minutes Spent Total Time Spent with Patient: Total time spent is greater than 50% in coordination of care (as documented) at patient's floor/unit and/or counseling patient: (1) HTN (hypertension) Hypertension type: essential hypertension Qualified Code(s): I10 - Essential (primary) hypertension
[2018-12-30] MEDS ORDERED: FOSAPREPITANT DIMEGLUMINE 150 MG in SODIUM CHLORIDE 0.9% 145 ML IV ONE (15:00)
[2018-12-30] MEDS: HydrALAZINE HCL 20 MG/ML VIAL IV PRN (15:58)
[2018-12-31] MEDS: ONDANSETRON INJ 2 MG/ML 2 ML VIAL IV PRN (03:43)
[2018-12-31] MEDS: HydrALAZINE HCL 20 MG/ML VIAL IV PRN (03:43)
[2018-12-31 06:33] LABS: Hematocrit (blood only) 36.4 % (42-52); Hemoglobin 12.2 g/dL (14.0-18.0); Mean Corpuscular Hgb Conc 33.5 g/dL (32-36); Mean Corpuscular Volume 90.8 fL (80-100); Mean Platelet Volume 9.5 fL (7.4-10.4); Platelet Count 240 K/uL (130-400); RDW Coefficient of Variation 14.1 % (11.5-14.5); RDW Standard Deviation 46.3 fL (36.4-46.3); Red Blood Count 4.01 M/uL (4.7-6.1); White Blood Count 13.02 K/uL (4.8-10.8)
[2018-12-31 07:26] LABS: BUN Creatinine Ratio 10.5 (10-20); Calcium 8.4 mg/dl (8.5-10.1); Creatinine Clr Calc Pharmacy 10.7 ml/min; Est GFR (Non-African American) 8.6; Magnesium 2.2 mg/dl (1.8-2.4); Potassium 3.5 mmol/L (3.5-5.1)
[2018-12-31] MEDS ORDERED: HEPARIN SOD (PORCINE) 1000 UNIT/ML 10 ML VIAL IV ONE (08:32)
[2018-12-31] MEDS ORDERED: SODIUM CHLORIDE 0.9% 1000ML 1,000 ML IV PRN (08:32)
[2018-12-31] MEDS: SERTRALINE HCL 100 MG TABLET PO SCH (08:41)
[2018-12-31] MEDS: FAMOTIDINE 20 MG TAB PO SCH (08:41)
[2018-12-31] MEDS: METOCLOPRAMIDE HCL 5 MG TABLET PO SCH ×3 (08:41→19:57)
[2018-12-31] MEDS: NEPHROCAPS PO SCH (08:41)
[2018-12-31] MEDS: ATORVASTATIN 10 MG TAB PO SCH (08:42)
[2018-12-31] MEDS: CHOLECALCIFEROL 1,000 UNITS TAB PO SCH (08:42)
[2018-12-31] MEDS: INSULIN ASPART 100 UNITS/ML 3 ML PEN SC SCH ×4 (08:43→21:25)
[2018-12-31] MEDS: INSULIN GLARGINE SOLOSTAR 100 UNITS/ML 3 ML PEN SC SCH (08:43)
[2018-12-31] MEDS: CALCIUM ACETATE 667 MG CAP PO SCH ×3 (08:44→16:47)
[2018-12-31] MEDS: HEPARIN SOD 5,000 UNIT/0.5 ML VIAL SQ SCH ×2 (08:47→20:57)
[2018-12-31] MEDS ORDERED: ALTEPLASE, RECOMBINANT 1 MG/ML 2ML VIAL IV ONE ×2 (09:45→10:30)
--- NOTE | 2018-12-31 12:02 | Psychiatric Consultation ---
Date of Consultation December 31, 2018 Impression / Recommendations Impression 78-year-old male admitted medically on 12/29/18, less than 12-hours after discharge from this facility. Pt frequently presents to the ED with complaints of intractable nausea, vomiting, and loose stools as it relates to gastroparesis. He has difficulty remaining compliant with his diabetes treatment - having been admitted with a glucose of 607 only hours after being discharged from this facility. We have been involved in the patient's case for several months, and he is well-known to our service. Unfortunately, patient was unavailable for a large portion of the day due to scheduled dialysis treatment - therefore was not directly assessed. Recommendations made below have not been reviewed with the patient, and additional follow-up will be necessary. Pt has historically appeared uncomfortable, withdrawn, and displays a flat affect. There is reason to believe he may be minimizing his depressive symptoms, but he is also quite medically compromised as well. From a psychiatric standpoint, the patient has historically verbalized noticeable improvement with titration of sertraline over the past few months. 1 week ago, patient's dose was titrated to 200mg daily. It is not clear that the adjustment of this dosage has been further contributing to his intractable nausea. Of course, it may be several more weeks before the noticeable benefits of this medication adjustment are apparent. Pt remains highly anergic, which may be a result of both his medical comorbidities and his depressive symptoms. Once able to review with the patient, may consider initiation of bupropion SR 100mg to target depression and ideally improve energy level - could titrate dose as tolerated. Pt may also be a candidate for a stimulant medication to target low energy, which may be contributing to non-compliance with his diabetes regimen. In regard to more intensive psychiatric treatment, criteria for inpatient admission is complicated. Certainly patient has proven non-compliance with his diabetes treatment, but he has not given any evidence that this is done as an attempt to harm himself or end his life. He consistently denies suicidal ideation or SIB. It is not uncommon for patient's with diabetes to find treatment compliance difficult - and while this is concerning, it does not clearly indicate that the patient should be admitted psychiatrically. This also begs the question of if the patient is able to be appropriately managed on a psychiatric unit given the complexity of his medical needs. At this time, we are not suggesting an inpatient psychiatric admission but will work closely with hospitalist team to attempt to treat depressive symptoms with a more robust medication regimen if patient is agreeable. Dr. Rome Kim was directly involved in review and discussion of the patient's case and participated in medical decision making regarding treatment recommendations. Risk Factors Assessment Do You Have Access To A Gun?: No CPT Code Pt unavailable today, as he was scheduled for a dialysis treatment which was delayed. Psych History Identifying Data 48-year-old male admitted medically on 12/29/18 with usual complaints of intractable nausea, vomiting, and loose stools - admitted less than 12-hours a fter being discharged from this facility with a glucose of 607. Pt's case was discussed prior to consultation with patient's attending physician - to review possibility of depression complicating his current medical conditions and compliance with outpatient treatment. Recommended psychiatric consultation be placed for use to further evaluation medication regimen. History of Present Illness Jorge Alberto De Los Santos is a 48-year-old male admitted medically on 12/29/18, less than 12-hours after discharge from this facility. Pt re-presented with usual co mplaints of intractable nausea, vomiting, and loose stools. His glucose was 607 on admission. Pt was last seen on our consult service for depression on 12/24/18 - and sertraline was titrated to 200mg. Pt did not verbalize significant anxiety or depression, but continues to appear rather flat and withdrawn. After re-admission, patient's case was presented by attending physician, to discuss interplay of his psychiatric and medical conditions. Formal consultation was placed, in order for medications to be reviewed and allow for other recommendations. This provider attempted on three separate, spaced-out occasions to meet with the patient - who was scheduled for dialysis today. Notes indicate that his treatment was delayed, and unfortunately he remained out of his room nearing the end of this provider's shift. As unable to formally speak with the patient, there is little collateral information available at this time. Suggesting patient be reassessed tomorrow for further medication discussion. He had indicated to psychiatric nurse liaisons that there was no suicidal ideation or acute psychiatric concerns. Past Psychiatric History Previous Psych History: Patient has been seen several times on her psychiatric consult service for reports of depression. Has been referred for therapy, though unclear if able to maintain consistency with appointments due to chronic medical concerns. Current Psychiatric Diagnosis: Depression Outpatient Services: Pt has been referred multiple times for outpatient psychaitric services, he has been unable to remain out of the hospital long enough to follow-up with outpatient treatment. Previous Psych Admissions: None Do You Have Access To A Gun?: No History of Previous Suicide Attempt: No Past Medication Trials: Per previous documentation: 1. Lexapro - ineffective 2. Remeron - too sedating 3. Zoloft 4. Valium - reportedly for gastroparesis Allergies Allergy/AdvReac Type Severity Reaction Status Date / Time shellfish derived Allergy Severe anaphylaxis Verified 12/29/18 00:59 codeine Allergy Intermediate Hives Verified 12/29/18 00:59 promethazine Allergy Intermediate itchy/hives Verified 12/29/18 00:59 Home Medications Home Medications Medication Instructions Recorded Confirmed Type Humalog U-100 Insulin 1 sliding scale dose SUBCUT CONT 09/10/18 12/29/18 History atorvastatin 10 mg PO QAM 09/10/18 12/29/18 History [place] Caps 1 cap PO DAILY 12/19/18 12/29/18 History amlodipine 10 mg PO QAM 12/19/18 12/29/18 History calcium acetate See Rx Instructions .ROUTE 12/19/18 12/29/18 History .COMPLEX MDD 7 CAPSULES/DAY cholecalciferol (vitamin D3) 2,000 unit PO QAM 12/23/18 12/29/18 History [Vitamin D3] famotidine 20 mg PO QAM #30 tab 12/23/18 12/29/18 Rx metoclopramide HCl 5 mg PO TID 12/23/18 12/29/18 History prochlorperazine [Compazine] 25 mg MD DAILY PRN 12/23/18 12/29/18 History sertraline 200 mg PO QAM #60 tab 12/28/18 12/29/18 Rx Family History Denies family history of psychiatric issues substance use or suicide Personal History Living Arrangements: Home (with care provided by parents) 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 Taylor Higgins; [facility]). Kidney stones Peripheral neuropathy Retinopathy due to secondary diabetes Surgical History History of appendectomy H/O shoulder surgery RIGHT History of hip surgery LEFT HIP ARTHROSCOPY History of cardiac cath 10/2018= no stents, no obstructive disease (at [facility]) History of lithotripsy Permanent central venous catheter in place Permacath Family History Grandfather Myocardial infarction Grandfather (Maternal) Family history of diabetes mellitus Social History Preferred Language: Nepalese Communication Ability: Effective Beliefs That Will Affect Care: Sabianism (Jehovah'S Witness, attends jehovah's witness when physically able) marital status: Single Current Living Situation: Parent current occupational status: employed Feels Safe at Home: Yes Smoking Status: Never smoker Tobacco Type: smokeless tobacco Second Hand Exposure: No Hx Alcohol Use: No Hx Substance Use: No Physical Exam Vital Signs (Past 24 Hours): Last Vital Signs Temp 37.0 C 12/31/18 11:13 Pulse 95 H 12/31/18 11:40 Resp 20 12/31/18 06:56 BP 169/115 H 12/31/18 11:40 Pulse Ox 97 12/31/18 06:56 Results & Data Medications Administered Amlodipine Besylate (Norvasc) 10 mg PO [facility] Stop: 01/28/19 08:59 Last Admin: 12/30/18 08:09 Dose: 10 mg Documented by: [id number] Admin: 12/29/18 09:39 Dose: 10 mg Documented by: [id number] Atorvastatin Calcium (Lipitor) 10 mg PO [facility] Stop: 01/28/19 08:59 Last Admin: 12/31/18 08:42 Dose: 10 mg Documented by: [id number] Admin: 12/30/18 08:09 Dose: 10 mg Documented by: [id number] Admin: 12/29/18 09:42 Dose: 10 mg Documented by: [id number] Calcium Acetate (Phoslo) 667 mg PO TIDM [facility] Stop: 01/28/19 07:59 Last Admin: 12/31/18 11:30 Dose: Not Given Documented by: [id number] Admin: 12/31/18 08:44 Dose: Not Given Documented by: [id number] Admin: 12/30/18 16:58 Dose: Not Given Documented by: [id number] Admin: 12/30/18 12:47 Dose: 667 mg Documented by: [id number] Admin: 12/30/18 08:07 Dose: 667 mg Documented by: [id number] Admin: 12/29/18 16:10 Dose: Not Given Documented by: [id number] Admin: 12/29/18 12:22 Dose: Not Given Documented by: [id number] Admin: 12/29/18 08:22 Dose: Not Given Documented by: [id number] Famotidine (Pepcid) 20 mg PO QAM [facility] Stop: 01/28/19 08:59 Last Admin: 12/31/18 08:41 Dose: 20 mg Documented by: [id number] Admin: 12/30/18 08:11 Dose: 20 mg Documented by: [id number] Admin: 12/29/18 09:40 Dose: 20 mg Documented by: [id number] Heparin Sodium (Porcine) (Heparin Sodium (Porcine)) 5,000 units SQ Q12 [facility] Stop: 01/28/19 08:59 Last Admin: 12/31/18 08:47 Dose: Not Given Documented by: [id number] Admin: 12/30/18 21:00 Dose: Not Given Documented by: [id number] Admin: 12/30/18 08:06 Dose: Not Given Documented by: [id number] Admin: 12/29/18 20:31 Dose: Not Given Documented by: [id number] Admin: 12/29/18 09:45 Dose: Not Given Documented by: [id number] Hydralazine HCl (Hydralazine Hcl) 10 mg IV Q6H PRN PRN Reason: SBP > 180 or DBP > 110 Stop: 01/29/19 14:12 Last Admin: 12/31/18 03:43 Dose: 10 mg Documented by: [id number] Admin: 12/30/18 15:58 Dose: 10 mg Documented by: [id number] Insulin Aspart (Novolog Flexpen) 0 units SC ACHS [facility] Stop: 01/29/19 11:29 Last Admin: 12/31/18 11:30 Dose: Not Given Documented by: [id number] Cosigned by: [id number] Admin: 12/31/18 08:43 Dose: 1 units Documented by: [id number] Cosigned by: [id number] Admin: 12/30/18 21:00 Dose: Not Given Documented by: [id number] Cosigned by: [id number] Admin: 12/30/18 16:58 Dose: Not Given Documented by: [id number] Cosigned by: [id number] Admin: 12/30/18 12:07 Dose: Not Given Documented by: [id number] Cosigned by: [id number] Insulin Glargine (Lantus Solostar Pen) 15 units SC DAILY JACKI; Protocol Stop: 01/30/19 08:59 Last Admin: 12/31/18 08:43 Dose: 15 units Documented by: [id number] Cosigned by: [id number] Metoclopramide HCl (Reglan) 5 mg PO TID JACKI Stop: 01/28/19 08:59 Last Admin: 12/31/18 08:41 Dose: 5 mg Documented by: [id number] Admin: 12/30/18 21:07 Dose: 5 mg Documented by: [id number] Admin: 12/30/18 12:47 Dose: 5 mg Documented by: [id number] Admin: 12/30/18 08:07 Dose: 5 mg Documented by: [id number] Admin: 12/29/18 20:25 Dose: Not Given Documented by: [id number] Admin: 12/29/18 15:18 Dose: 5 mg Documented by: [id number] Admin: 12/29/18 09:39 Dose: 5 mg Documented by: [id number] Ondansetron HCl (Zofran) 4 mg IV Q6H PRN PRN Reason: NAUSEA/VOMITING Stop: 01/28/19 03:55 Last Admin: 12/31/18 03:43 Dose: 4 mg Documented by: [id number] Admin: 12/30/18 14:17 Dose: 4 mg Documented by: [id number] Admin: 12/30/18 03:11 Dose: 4 mg Documented by: [id number] Admin: 12/29/18 15:42 Dose: 4 mg Documented by: [id number] Admin: 12/29/18 08:24 Dose: 4 mg Documented by: [id number] Sertraline HCl (Zoloft) 200 mg PO QAM [facility] Stop: 01/28/19 08:59 Last Admin: 12/31/18 08:41 Dose: 200 mg Documented by: [id number] Admin: 12/30/18 08:10 Dose: 200 mg Documented by: [id number] Admin: 12/29/18 09:40 Dose: 200 mg Documented by: [id number] Vitamin B Complex/Folic Acid (Nephrocaps) 1 cap PO DAILY [facility] Stop: 01/28/19 08:59 Last Admin: 12/31/18 08:41 Dose: 1 cap Documented by: [id number] Admin: 12/30/18 08:10 Dose: 1 cap Documented by: [id number] Admin: 12/29/18 09:40 Dose: 1 cap Documented by: [id number] Vitamin D (Vitamin D3) [facility] [place] Stop: 01/28/19 08:59 Last Admin: 12/31/18 08:42 Dose: 2,000 units Documented by: [id number] Admin: 12/30/18 08:10 Dose: 2,000 units Documented by: [id number] Admin: 12/29/18 09:40 Dose: 2,000 units Documented by: [id number]
[2018-12-31] MEDS: HEPARIN SOD (PORCINE) 1000 UNIT/ML 10 ML VIAL IV SCH ×2 (13:23→13:24)
--- NOTE | 2018-12-31 16:32 | Hospitalist Progress Note ---
Date of Service December 31, 2018 Assessment & Plan (1) Diabetes mellitus type 1, with complication, on sample book maker insulin pump: Was discharged, and returned within 12 hours with blood sugar >600. Insulin pump and sensor were examined by the hospital educator (Paris Hernandez) and found to be in good working order. - Concern from family and staff is that he is not currently able to manage his DM due to his depression - Glycemic pharmacist is now managing his insulin. He was initially on an i nsulin drip. - Now on long-acting insulin with sliding scale - Will work with pharmacist to find a good regimen -> In conjunction with Ivan, the family, and DM team, it seems he may switch back to his basal-bolus insulin regimen. (2) Gastroparesis: Ongoing issue. - Continue metoclopramide 5 mg p.o. 3 times daily. - On 12/30, got a dose of fosaprepitant 150mg IV x 1. - On 12/31, nausea and vomiting are improving. Asking for food. (3) End-stage renal disease on hemodialysis: Follows with [facility] nephrology. - Consulted on admission. - HD per nephrology (4) Anxiety with depression: Discussed with psychiatry on 12/30. - Continue sertraline 200 mg every morning. - Will consider adding Wellbutrin in discussion with the family. (5) HTN (hypertension): BP elevated inpatient. - Continue amlodipine 10 mg p.o. every morning. - Hydralazine PRN (6) Hyperlipidemia LDL goal <70: Continue atorvastatin 10 mg every morning (7) Acid reflux: Increase famotidine 20 mg to twice daily (8) DVT prophylaxis: Heparin 5000 units BID Subjective Nausea has improved. A few episodes of dry heaving, but otherwise no major concerns. Blood sugars have been under good control given his status is essentially n.p.o. He remains withdrawn and depressed with a flat affect; however, he was somewhat more upbeat today while talking with the hospital educator about changes in his insulin regimen that may result in better control of blood sugars. Review of Systems Review of Systems: All systems reviewed & are unremarkable except as noted in HPI & below Physical Exam Constitutional: WD/WN, vitals as above + acute distress, + cachectic, + frail appearing and + lethargic Eyes: EOM intact bilaterally; no conjunctival abnormality ENMT: external ear and nose normal, oropharynx normal Neck: trachea midline, no thyromegaly normal visual inspection Respiratory: normal respiratory effort, lungs clear to auscultation no respiratory distress Cardiovascular: RRR, no murmur, no edema Gastrointestinal (Abdomen): Inspection/Auscultation: abdomen normal to inspection; abdomen not distended Musculoskeletal: no cyanosis or clubbing, extremities motor strength 5/5 Skin: no rashes, warm and dry Neurologic: moves all extremities and awake Psychiatric: Orientation: alert, oriented to person and cooperative Results & Data Vital Signs (Past 12 Hours) Vital Signs Temp Pulse Pulse Pulse Resp BP BP 12/31/18 16:14 36.9 C 91 H 22 178/113 H 12/31/18 15:15 36.5 C 91 H 91 H 152/105 H 152/105 H 12/31/18 15:00 90 105/73 12/31/18 14:40 88 115/83 12/31/18 14:20 92 H 91/70 L 12/31/18 14:00 91 H 107/79 12/31/18 13:40 90 119/83 12/31/18 13:20 92 H 114/78 12/31/18 13:00 95 H 118/81 12/31/18 12:40 93 H 120/86 12/31/18 12:20 93 H 119/87 12/31/18 12:00 93 H 144/105 H 12/31/18 11:40 95 H 169/115 H 12/31/18 11:20 95 H 191/125 H 12/31/18 11:13 37.0 C 94 H 94 H 179/121 H 12/31/18 06:56 36.4 C L 99 H 20 179/109 H 12/31/18 04:44 168/85 H Pulse Ox 12/31/18 16:14 98 12/31/18 15:15 12/31/18 15:00 12/31/18 14:40 12/31/18 14:20 12/31/18 14:00 12/31/18 13:40 12/31/18 13:20 12/31/18 13:00 12/31/18 12:40 12/31/18 12:20 12/31/18 12:00 12/31/18 11:40 12/31/18 11:20 12/31/18 11:13 12/31/18 06:56 97 12/31/18 04:44 PG Care Time/CCT Total # of Minutes Spent Total Time Spent with Patient: Total time spent is greater than 50% in co ordination of care (as documented) at patient's floor/unit and/or counseling patient: 45 (1) HTN (hypertension) Hypertension type: essential hypertension Qualified Code(s): I10 - Essential (primary) hypertension
[2018-12-31] MEDS: AMLODIPINE BESYLATE 5 MG TAB PO SCH (16:47)
--- NOTE | 2018-12-31 20:04 | Nephrology Progress Note ---
Date of Service December 31, 2018 Assessment & Plan (1) ESRD (end stage renal disease): ESRD patient on dialysis Thursday. He tolerated HD well today. CVC did not work initially but worked well after alteplase. Next HD Thursday (2) DKA, type 1: Patient required insulin drip. Blood sugars are improving. Continue supportive management for vomiting and poor p.o. intake. (3) Anemia: Recent Hemoglobin of 11.2 which is at target. No need for Epogen (4) HTN (hypertension): Blood pressure is above target today but could to be in setting of vomiting his oral meds. Please give IV hydralazine as needed until able to tolerate oral meds. Continue current regimen. Subjective Patient seen and examined while on dialysis. He is complaining of vomiting. No SOB or leg swelling. CVC did not work initially, required alteplase Review of Systems Review of Systems: All systems reviewed & are unremarkable except as noted in HPI & below Physical Exam Physical Exam: General exam: Appears comfortable, no acute distress HEENT: Pupils are equal and reactive to light Neck: No JVD, neck is supple trachea is midline Respiratory system: Clear breath sounds bilaterally. Gastrointestinal: Abdomen is soft, non distended, non tender, bowel sounds are present CVS: Regular rate and rhythm. No murmurs, rubs or gallops Musculoskeletal: No joint or muscle tenderness Extremities: Non tender, no edema, peripheral pulses are present Neuro: Oriented, no tremors, no focal neurological deficits Skin: No rashes Access: CVC Results & Data Vital Signs (Past 12 Hours) Vital Signs Temp Pulse Pulse Resp BP BP Pulse Ox 12/31/18 18:19 37.0 C 95 H 15 157/97 H 95 12/31/18 16:14 36.9 C 91 H 22 178/113 H 98 12/31/18 15:15 36.5 C 91 H 91 H 152/105 H 152/105 H 12/31/18 15:00 90 105/73 12/31/18 14:40 88 115/83 12/31/18 14:20 92 H 91/70 L 12/31/18 14:00 91 H 107/79 12/31/18 13:40 90 119/83 12/31/18 13:20 92 H 114/78 12/31/18 13:00 95 H 118/81 12/31/18 12:40 93 H 120/86 12/31/18 12:20 93 H 119/87 12/31/18 12:00 93 H 144/105 H 12/31/18 11:40 95 H 169/115 H 12/31/18 11:20 95 H 191/125 H 12/31/18 11:13 37.0 C 94 H 94 H 179/121 H Laboratory Results Laboratory Results - last 24 hr 12/30/18 12/31/18 12/31/18 20:21 06:12 06:12 WBC 13.02 H RBC 4.01 L Hgb 12.2 L Hct 36.4 L MCV 90.8 MCH 30.4 MCHC 33.5 RDW Std Deviation 46.3 RDW Coeff of Kami 14.1 Plt Count 240 MPV 9.5 Sodium 137 Potassium 3.5 Chloride 102 Carbon Dioxide 18 L Anion Gap 17.0 H BUN 72 H Creatinine 6.88 H* Est Cr Clr Drug Dosing 10.7 Est GFR ( Amer) 10.0 Est GFR (Non-Af Amer) 8.6 BUN/Creatinine Ratio 10.5 Glucose 183 H POC Glucose 118 H Calcium 8.4 L Magnesium 2.2 12/31/18 12/31/18 07:30 16:23 WBC RBC Hgb Hct MCV MCH MCHC RDW Std Deviation RDW Coeff of Kami Plt Count MPV Sodium Potassium Chloride Carbon Dioxide Anion Gap BUN Creatinine Est Cr Clr Drug Dosing Est GFR ( Amer) Est GFR (Non-Af Amer) BUN/Creatinine Ratio Glucose POC Glucose 179 H 74 Calcium Magnesium (1) DKA, type 1 Diabetes mellitus complication detail: without coma Qualified Code(s): E10.10 - Type 1 diabetes mellitus with ketoacidosis without coma (2) Anemia Anemia type: due to chronic kidney disease Chronic kidney disease stage: on chronic dialysis Qualified Code(s): N18.6 - End stage renal disease; D63.1 - Anemia in chronic kidney disease; Z99.2 - Dependence on renal dialysis (3) HTN (hypertension) Hypertension type: essential hypertension Qualified Code(s): I10 - Essential (primary) hypertension
[2019-01-01] MEDS: ONDANSETRON INJ 2 MG/ML 2 ML VIAL IV PRN ×3 (00:09→16:34)
[2019-01-01 07:52] LABS: Hematocrit (blood only) 33.8 % (42-52); Hemoglobin 11.5 g/dL (14.0-18.0); Mean Corpuscular Volume 89.7 fL (80-100); Mean Platelet Volume 9.7 fL (7.4-10.4); Platelet Count 149 K/uL (130-400); RDW Coefficient of Variation 13.9 % (11.5-14.5); RDW Standard Deviation 45.8 fL (36.4-46.3); Red Blood Count 3.77 M/uL (4.7-6.1); White Blood Count 8.64 K/uL (4.8-10.8)
[2019-01-01] MEDS: AMLODIPINE BESYLATE 5 MG TAB PO SCH (08:09)
[2019-01-01 08:28] LABS: BUN Creatinine Ratio 8.6 (10-20); Calcium 7.7 mg/dl (8.5-10.1); Creatinine Clr Calc Pharmacy 17.2 ml/min; Est GFR (African American) 19.2; Est GFR (Non-African American) 16.6; Potassium 3.5 mmol/L (3.5-5.1)
[2019-01-01] MEDS ORDERED: INSULIN GLARGINE SOLOSTAR 100 UNITS/ML 3 ML PEN SC SCH (09:00)
[2019-01-01] MEDS: HEPARIN SOD 5,000 UNIT/0.5 ML VIAL SQ SCH ×2 (09:25→21:08)
[2019-01-01] MEDS: NEPHROCAPS PO SCH (09:25)
[2019-01-01] MEDS: CALCIUM ACETATE 667 MG CAP PO SCH ×3 (09:25→18:19)
[2019-01-01] MEDS: CHOLECALCIFEROL 1,000 UNITS TAB PO SCH (09:26)
[2019-01-01] MEDS: METOCLOPRAMIDE HCL 5 MG TABLET PO SCH ×3 (09:26→21:08)
[2019-01-01] MEDS: FAMOTIDINE 20 MG TAB PO SCH (09:26)
[2019-01-01] MEDS: ATORVASTATIN 10 MG TAB PO SCH (09:26)
[2019-01-01] MEDS: SERTRALINE HCL 100 MG TABLET PO SCH (09:27)
[2019-01-01] MEDS: INSULIN ASPART 100 UNITS/ML 3 ML PEN SC SCH ×4 (09:39→21:12)
--- NOTE | 2019-01-01 10:51 | Pharmacy Report ---
Pharmacy Glycemic Short Note 2 - Date of Service January 01, 2019 - Glycemic Short BSG Results (Last 24 hours): 12/31/18 12/31/18 01/01/19 16:23 20:48 07:29 Glucose 85 POC Glucose 74 105 H 01/01/19 08:26 Glucose POC Glucose 86 OUTPATIENT ANTIDIABETIC REGIMEN: * Humalog insulin pump * Basal rates: 1529-5550: .5u/hr, 9286-9048: .6u/hr, 7916-0755: 1u/hr. Roughly 20units of basal insulin/D. CF/CR 35/10 respectively. Goal range 100-130 * A1c = unreliable in ESRD ASSESSMENT: * 48yo brittle T1DM male well known to pharmacy from previous admissions/glycemic consults * 12/29/18: Pt initiated on IV insulin infusion for DKA; transitioned to SQ basal bolus on 12/30/18 * PO intake still remains poor but appetite is slowly increasing. * Patient is currently receiving 14-15 units of basal insulin per day with adequate control. * BSGs [id number] * Will decrease basal from 15 units to 15 units this morning for AM fasting BSG of 86 mg/dl * Anticipating discharge today to home with parents. Met with patient, his parents, MD, & Seal Mixer to discuss post-discharge plan of resuming pump vs switching to sq basal bolus regimen. * Either option is feasible but important to pick safest/easiest regimen to prevent BSG swings/DKA/hospital admissions. Family has little understanding of pump functions and rely on Ivan to make his own adjustments/bolus for CHO (which may not always happen). Family was all in agreement that going back to injections at discharge would be the most feasible option. * Discussed different options of pre-set doses of rapid acting insulin based on meal size versus carb counting. Mom/pt feel carb counting is best option to prevent over/under dosing of insulin leading to BSG swings. * Per DM educator: Insurance company called to check formulary. Basaglar and Admelog are covered at $3. Pt states he has been getting his Humalog from a friend, who gets samples for free. Pt is agreeable to switch to other insulins post-discharge. SMBG frequency/goals discussed. Discussed working with Endo team to obtain a CGM that can be used without insulin pump. Additional information on carbs reviewed. Encouraged measuring foods and creating a carb count cheat sheet to help. BD discharge kit and handouts provided. PLAN FOR INPATIENT GLYCEMIC CONTROL: * Basal insulin * Lantus 14 units SQ Q24hrs given in the morning * Bolus insulin * NovoLog per scale ACHS or Q6hrs while NPO * Goal Range: Low 120 mg/dL - High 150 mg/dL * Correction Factor: 30 mg/dL/unit * Nutritional / Prandial insulin per carb ratio of 1 unit per 9 grams CHO consumed PLAN FOR DISCHARGE: Check your blood sugar before each meal and before bed or when feeling funny BASAL INSULIN: Basaglar 14 units in the morning (Basaglar is a slow acting/24 hour insulin; helps cover the sugar your body makes) (take your Basaglar at the same time every day) (you do not need to take Basaglar with food) RAPID ACTING INSULIN (Bolus): Carb coverage: Admelog 1 unit for every 10 grams of carbohydrate (Admelog is a rapid-acting insulin; helps covers the carbohydrates you eat) (take immediately before eating) (do not take, if you do not eat any carbohydrates) Coverage for high blood sugar: Admelog 1unit of insulin will lower your blood sugar approximately 35 points (additional Admelog is needed to help correct high blood sugar values) (add this to your Ademelog carbohydrate coverage when your blood sugar is above target) Blood Sugar Ademlog coverage for High Blood Sugar less than 150 no extra 151 185 + 1 unit 186 220 + 2 units 221 255 + 3 units 256 290 + 4 units 291 325 + 5 units 326 360 + 6 units 361 395 + 7 units 395 and above + 8 units and call provider
[2019-01-01] MEDS: INSULIN GLARGINE SOLOSTAR 100 UNITS/ML 3 ML PEN SC SCH (11:33)
--- NOTE | 2019-01-01 16:55 | Psychiatric Progress Note ---
Date of Service January 01, 2019 Impression / Recommendations Impression 48-year-old male admitted medically on 12/29/18 who has many medical and social challenges, to include mutliple recurrent hospitalizations in the last 4+ months due to diabetes and related complications. He denies being depressed but does seems to have some ongoing anxiety that on retrospect is at least in part responding to ongoing medical treatment of underlying concerns, and the sertraline 200mg. 1. Safety - patient is not an imminent danger to self or others. Outpatient care s/p medical discharge is least restrictive and most appropriate setting for care once medically cleared. 2. Mood - Depression Unspecified - continue sertraline 200mg he appears more bright than when I saw him in October 2018, It is not clear to what extent his residual low energy, lack of umph and volition is from fatigue of ESRD and how much could be microvascular changes causing apathy but he denies some of the negative cognitions and h/h/w and ruminations I would expect of depression. If anergia, and low motivation are a concern could trial low dose stimulant or wellbutrin SR 100mg as noted by Ms Jackson If after 6-8 weeks on sertraline 200mg there is still concern for low motivation, low interest a trial of desvenlafaxine 25mg/day could be initiated in place of sertraline or as adjunct at first to assess tolerabiltiy prior to sertraline taper. 3. Sleep - I cannot rule out that sertraline may or may not be impacting his increased sleep latency. However since he is tolerating and seems to have partial benefit, will continue and offer options of melatonin 3mg/hs (there are 3 small studies showing improved sleep quality in ESRD patients). Trazodone would be my next option although with caution given patient has orthostasis at baseline, so starting low and slow at 25mg advancing by 25mg every 4-7 days until at 100mg. I have discussed both medications with patient, he is agreeable to trial melatonin. He will need to access over the counter. 3. Anxiety - improvement on sertraline 200mg but remains present give ful 6-8 weeks at this new dose and . Agree with his plan to see Jaqu[facility] local therapist, first appt upcoming. Future options for treatment would be buspirone or desvenlafaxine as noted above if already moving in that direction. Thank you for allowing us to participate in Mr De Los Santos's care. Please assure patient's PCM /outpatient psychotropic prescriber receives this psychiatric progress note. Risk Factors Assessment Do You Have Access To A Gun?: No Interval History Identifying Information Mr De Los Santos is a 48yo male with multiple medical concerts to include ESRD and DM with intractable nausea and vomitting who has been readmitted to medical service this week psychiatry was consulted to assess depression. Chief Complaint "I feel okay, I don't feel depressed, I do worry about the divorce". Subjective Subjective Please see my consultation note dated 11/01/18 for full history, at that time patient was very unwell and pending start of dialysis with hope that would help his overall wellbeing, mental status, and mood and anxiety alongside upward titration of sertraline to 150mg, and recommendation for ongoing therapy. Psychiatry has had several additional contacts with the patient at his subsequent hospitalizations so we have been able to track serial evaluations overtime which although unusual is helpful. Our most recent contact was one week ago when belkys's sertraline was increased from 150mg to 200mg. Please see our Psychiatric PA note dated 12/31/18, as she was able to iterate history and options for possible treatment but due to patient being unavailable was physically unable to interview the patient. I met with the patient today at the bedside. He was alert and participatory and states his mood is a 5/10 (10 best, 0 most depressed) and denies feeling h/h/w or safety concerns. He is future oriented noting he appreciates his parents, loves his children and feels although dialysis is draining it has helped him. He does not feel nauseated today and he is unsure why but is grateful. 'I just take one day at a time" He reports his appetite is fair on the days he is not nauseated. He has limited activities of interest and limited socialization outside of his medical appointments, spending time with his parents with whom he lives, and time with his kids whom he shares custody of with his (pending divorce finalization). He states he has accepted his divorce whereas before he had not. He is not happy about it but not depressed. He states he can get anxious when he thinks about medical bills but denies panic symptoms or constant worry. at an average moment anxiety is low, but can peak to a 7/10 (10 worst, 0 none)if he thinks too long about bills. He nots he is at baseline a worrier and feels perhaps on reflection that setraline may be keeping him from worrying as often or ask intensely. He is taking sertraline 200mg since last week and denies changes in sleep, energy, appetite. He does not know if it contributed to his nausea or not, he denies loose bowels. He is not nauseated at this time. He is uncertain if it has helped. When provider reminded him of the anxiety he presented in 10/2018 when I met him he states he is feeling less anxious than he felt then, and less physically unwell although we both speculate the latter may be his dialysis helping him. His concern at this time when provider prompted him is difficulty falling asleep, has been happening for several months, does not know if it correlates with sertraline or not he does not remember the timeline. He denies RLS, and states he has incrased sleep latency but once asleep is able to stay asleep okay. He has orthostasis at baseline due to his other medical illnesses and meds. He denies other symptoms on psychiatric ROS. He denies historical s/sx of elevated or mixed states or psychosis. Denies h/o SA or safety concerns. Past med trials include lexapro (no help), remeron (too tired), and wellbutrin (used for smoking cessation without help for that was not depressed at the time so does not know if it helped mood, energy,umph), and valium (for GI upset/gastroparesis). Physical Exam Psychiatric Orientation: alert and oriented x 3 laying in bed good EC, in hospital gown, hair greasy but o/w clean no incrase or decrease in PMA Speech: normal rate/rhythm/volume of speech Affect: + constricted affect (smiles to social humor) denies anxious or depressed mood at this time, mood is "okay, not good or bad" Thought Process: goal directed thought process and linear/logical thought process Thought Content: reality based without delusions Suicidal Thoughts: denies suicidal thoughts and denies suicidal plan Homicidal Thoughts: denies homicidal thoughts and denies homicidal plan Hallucinations: no auditory hallucinations Cognition: recent memory grossly intact Estimated Intelligence: average estimated intelligence Insight: + fair insight Judgement: + fair judgement Vital Signs (Past 24 Hours) Last Vital Signs Temp 36.9 C 01/01/19 15:53 Pulse 90 01/01/19 15:53 Resp 16 01/01/19 15:53 BP 151/92 H 01/01/19 15:53 Pulse Ox 97 01/01/19 15:53 Results & Data Laboratory Results Laboratory Results - last 24 hr 12/31/18 01/01/19 01/01/19 20:48 07:29 07:29 WBC 8.64 RBC 3.77 L Hgb 11.5 L Hct 33.8 L MCV 89.7 MCH 30.5 MCHC 34.0 RDW Std Deviation 45.8 RDW Coeff of Kami 13.9 Plt Count 149 MPV 9.7 Sodium 136 Potassium 3.5 Chloride 101 Carbon Dioxide 28 Anion Gap 7.0 BUN 35 H D Creatinine 4.00 H D Est Cr Clr Drug Dosing 17.2 Est GFR ( Amer) 19.2 Est GFR (Non-Af Amer) 16.6 BUN/Creatinine Ratio 8.6 L Glucose 85 POC Glucose 105 H Calcium 7.7 L 01/01/19 01/01/19 08:26 12:19 WBC RBC Hgb Hct MCV MCH MCHC RDW Std Deviation RDW Coeff of Kami Plt Count MPV Sodium Potassium Chloride Carbon Dioxide Anion Gap BUN Creatinine Est Cr Clr Drug Dosing Est GFR ( Amer) Est GFR (Non-Af Amer) BUN/Creatinine Ratio Glucose POC Glucose 86 110 H Calcium Current Inpatient Medications Current Inpatient Medications: Current Inpatient Medications Acetaminophen (Tylenol) 650 mg PO Q4H PRN PRN Reason: Pain or Fever Stop: 01/28/19 03:55 Last Admin: 01/01/19 12:41 Dose: 650 mg Documented by: Amlodipine Besylate ([facility]asc) [facility] [place] Stop: 01/28/19 08:59 Last Admin: 01/01/19 08:09 Dose: 10 mg Documented by: Atorvastatin Calcium (Lipitor) 10 mg PO QAM [facility] Stop: 01/28/19 08:59 Last Admin: 01/01/19 09:26 Dose: 10 mg Documented by: Calcium Acetate (Phoslo) 667 mg PO TIWW [facility] [place] Stop: 01/28/19 07:59 Last Admin: 01/01/19 12:42 Dose: 667 mg Documented by: Calcium Acetate (Phoslo) 667 mg PO TIDM PRN PRN Reason: .SNACKS Stop: 01/28/19 04:02 Dextrose (Dextrose 50%) 25 - 50 ml IV UD PRN; Protocol PRN Reason: Hypoglycemia Protocol Stop: 01/28/19 03:55 Famotidine (Pepcid) 20 mg PO QAM JACKI Stop: 01/28/19 08:59 Last Admin: 01/01/19 09:26 Dose: 20 mg Documented by: Glucagon (Glucagen) 1 mg SQ UD PRN; Protocol PRN Reason: Hypoglycemia Protocol Stop: 01/28/19 03:55 Glucose (Glucose 40%) 15 - 30 gm PO UD PRN; Protocol PRN Reason: Hypoglycemia Protocol Stop: 01/28/19 03:55 Glucose (Dex4 Glucose) 4 - 8 tabs PO UD PRN; Protocol PRN Reason: Hypoglycemia Protocol Stop: 01/28/19 03:55 Heparin Sodium (Porcine) (Heparin Sodium (Porcine)) 5,000 units SQ Q12 JACKI Stop: 01/28/19 08:59 Last Admin: 01/01/19 09:25 Dose: Not Given Documented by: Hydralazine HCl (Hydralazine Hcl) 10 mg IV Q6H PRN PRN Reason: SBP > 180 or DBP > 110 Stop: 01/29/19 14:12 Last Admin: 12/31/18 03:43 Dose: 10 mg Documented by: Insulin Aspart (Novolog Flexpen) 0 units SC ACHS [facility] Stop: 01/29/19 11:29 Last Admin: 01/01/19 13:32 Dose: 3 units Documented by: Insulin Glargine (Lantus Solostar Pen) 14 units SC DAILY [facility]; Protocol Stop: 01/31/19 08:59 Last Admin: 01/01/19 09:39 Dose: 14 units Documented by: Metoclopramide HCl (Reglan) 5 mg PO TID [facility] Stop: 01/28/19 08:59 Last Admin: 01/01/19 13:30 Dose: 5 mg Documented by: Miscellaneous (Carbohydrates For Hypoglycemia) 15 - 30 gm PO UD PRN PRN Reason: Hypoglycemia Treatment Stop: 01/28/19 03:55 Miscellaneous Information (Consult Glycemic Management Pharmacy) 1 ea N/A UD PRN PRN Reason: Consult Stop: 01/28/19 07:50 Ondansetron HCl (Zofran) 4 mg IV Q6H PRN PRN Reason: NAUSEA/VOMITING Stop: 01/28/19 03:55 Last Admin: 01/01/19 10:40 Dose: 4 mg Documented by: Sertraline HCl (Zoloft) 200 mg PO QAM [facility] Stop: 01/28/19 08:59 Last Admin: 01/01/19 09:27 Dose: 200 mg Documented by: Vitamin B Complex/Folic Acid (Nephrocaps) 1 cap PO DAILY [facility] Stop: 01/28/19 08:59 Last Admin: 01/01/19 09:25 Dose: 1 cap Documented by: Vitamin D (Vitamin D3) 2,000 units PO QAM [facility] Stop: 01/28/19 08:59 Last Admin: 01/01/19 09:26 Dose: 2,000 units Documented by: CPT Code CPT Code 71930
--- NOTE | 2019-01-01 18:03 | Hospitalist Progress Note ---
Date of Service January 01, 2019 Assessment & Plan (1) Diabetes mellitus type 1, with complication, on ocean transportation intermediary insulin pump: Was discharged, and returned within 12 hours with blood sugar >600. Insulin pump and sensor were examined by the community nutrition educator (Paris Hernandez) and found to be in good working order. - Concern from family and staff is that he is not currently able to manage his DM due to his depression - Glycemic pharmacist is now managing his insulin. He was initially on an i nsulin drip. - Now on long-acting insulin with sliding scale - Will work with pharmacist to find a good regimen -> In conjunction with Ivan, the family, and DM team, it seems he may switch back to his basal-bolus insulin regimen. - On 01/01, blood sugars are in good control. Mostly 85-110. His nausea is also much improved. (2) Gastroparesis: Ongoing issue. - Continue metoclopramide 5 mg p.o. 3 times daily. - On 12/30, got a dose of fosaprepitant 150mg IV x 1. - On 12/31, nausea and vomiting are improving. Asking for food. - By 01/01, his nausea is almost entirely gone. I feel that when his blood sugars get out of control, this really exacerbates his nausea. (3) End-stage renal disease on hemodialysis: Follows with [facility] nephrology. - Consulted on admission. - HD per nephrology (4) Anxiety with depression: Discussed with psychiatry on 12/30. - Continue sertraline 200 mg every morning. - Will add Wellbutrin tomorrow morning. (5) HTN (hypertension): BP elevated inpatient. - Continue amlodipine 10 mg p.o. every morning. - Hydralazine PRN (6) Hyperlipidemia LDL goal <70: Continue atorvastatin 10 mg every morning (7) Acid reflux: Increase famotidine 20 mg to twice daily (8) DVT prophylaxis: Heparin 5000 units BID Subjective Feeling great today. Only one episode of nausea in the morning, but ate a lot of lunch and is feeling well. Family is here with him. Review of Systems Review of Systems: All systems reviewed & are unremarkable except as noted in HPI & below Physical Exam Constitutional: WD/WN, vitals as above + cachectic, + frail appearing and + lethargic; no acute distress Eyes: EOM intact bilaterally; no conjunctival abnormality ENMT: external ear and nose normal, oropharynx normal Neck: trachea midline, no thyromegaly normal visual inspection Respiratory: normal respiratory effort, lungs clear to auscultation no respiratory distress Cardiovascular: RRR, no murmur, no edema Gastrointestinal (Abdomen): Inspection/Auscultation: abdomen normal to inspection; abdomen not distended Musculoskeletal: no cyanosis or clubbing, extremities motor strength 5/5 Skin: no rashes, warm and dry Neurologic: moves all extremities and awake Psychiatric: Orientation: alert, oriented to person and cooperative Results & Data Vital Signs (Past 12 Hours) Vital Signs Temp Pulse Pulse Pulse Resp BP Pulse Ox 01/01/19 16:34 90 150/96 H 01/01/19 15:53 36.9 C 90 16 151/92 H 97 01/01/19 11:04 166/102 H 01/01/19 09:33 167/103 H 01/01/19 07:39 36.4 C L 90 16 181/108 H 97 PG Care Time/CCT Total # of Minutes Spent Total Time Spent with Patient: Total time spent is greater than 50% in coordination of care (as documented) at patient's floor/unit and/or counseling patient: (1) HTN (hypertension) Hypertension type: essential hypertension Qualified Code(s): I10 - Essential (primary) hypertension
[2019-01-02 06:59] LABS: Calcium 8.1 mg/dl (8.5-10.1); Creatinine Clr Calc Pharmacy 13.5 ml/min; Est GFR (African American) 16.2; Potassium 3.3 mmol/L (3.5-5.1)
[2019-01-02] MEDS: AMLODIPINE BESYLATE 5 MG TAB PO SCH (08:14)
[2019-01-02] MEDS: METOCLOPRAMIDE HCL 5 MG TABLET PO SCH (08:15)
[2019-01-02] MEDS ORDERED: INSULIN GLARGINE SOLOSTAR 100 UNITS/ML 3 ML PEN SC SCH (09:00)
[2019-01-02] MEDS ORDERED: BuPROPion SR 100 MG TABCR PO SCH (09:00)
[2019-01-02] MEDS: SERTRALINE HCL 100 MG TABLET PO SCH (09:39)
[2019-01-02] MEDS: HEPARIN SOD 5,000 UNIT/0.5 ML VIAL SQ SCH (09:40)
[2019-01-02] MEDS: ATORVASTATIN 10 MG TAB PO SCH (09:40)
[2019-01-02] MEDS: NEPHROCAPS PO SCH (09:40)
[2019-01-02] MEDS: CHOLECALCIFEROL 1,000 UNITS TAB PO SCH (09:40)
[2019-01-02] MEDS: CALCIUM ACETATE 667 MG CAP PO SCH (09:41)
[2019-01-02] MEDS: INSULIN ASPART 100 UNITS/ML 3 ML PEN SC SCH (09:43)
[2019-01-02] MEDS: FAMOTIDINE 20 MG TAB PO SCH (10:26)
--- NOTE | 2019-01-02 14:50 | Pharmacy Report ---
Pharmacy Glycemic Short Note 2 - Date of Service January 02, 2019 - Glycemic Short BSG Results (Last 24 hours): 01/01/19 01/01/19 01/02/19 17:02 20:44 05:46 Glucose 70 POC Glucose 86 100 H 01/02/19 01/02/19 08:10 10:43 Glucose POC Glucose 87 169 H Discharge instructions given to patient: Check your blood sugar in the morning and before each meal and at bedtime or when feeling funny Basaglar Blood Sugar below 120 mg/dl give 13 units Blood Sugar 120-220 mg/dl give 14 units Blood Sugar above 220 mg/dl give 15 units (Basaglar is a slow acting/24 hour insulin; helps cover the sugar your body makes) (take your Basaglar at the same time every day) (you do not need to take Basaglar with food) Admelog 1 unit for every 10 grams of carbohydrate (Admelog is a rapid-acting insulin; helps covers the carbohydrates you eat) (take immediately before eating) (do not take, if you do not eat any carbohydrates) Admelog 1 unit of insulin will lower your blood sugar approximately 35 points (Additional Admelog is needed to help correct high blood sugar values) (Add scale below to your Ademelog carbohydrate coverage when your blood sugar is above target of 150mg/dl) Blood Sugar Ademlog coverage for High Blood Sugar less than 150 no extra 151 185 + 1 unit 186 220 + 2 units 221 255 + 3 units 256 290 + 4 units 291 325 + 5 units 326 360 + 6 units 361 395 + 7 units 395 and above + 8 units and call provider
--- NOTE | 2019-01-02 17:29 | Discharge Summary ---
Date of Service January 02, 2019 Admission HPI Per Admitting Provider Jorge Alberto De Los Santos is a 48-year-old male admitted medically on 12/29/18, less than 12-hours after discharge from this facility. Pt re-presented with usual complaints of intractable nausea, vomiting, and loose stools. His glucose was 607 on admission. Pt was last seen on our consult service for depression on 12/24/18 - and sertraline was titrated to 200mg. Pt did not verbalize significant anxiety or depression, but continues to appear rather flat and withdrawn. After re-admission, patient's case was presented by attending physician, to discuss interplay of his psychiatric and medical conditions. Formal consultation was placed, in order for medications to be reviewed and allow for other recommendations. This provider attempted on three separate, spaced-out occasions to meet with the patient - who was scheduled for dialysis today. Notes indicate that his treatment was delayed, and unfortunately he remained out of his room nearing the end of this provider's shift. As unable to formally speak with the patient, there is little collateral information available at this time. Suggesting patient be reassessed tomorrow for further medication discussion. He had indicated to psychiatric nurse liaisons that there was no suicidal ideation or acute psychiatric concerns. Principal Diagnosis DKA Discharge Exam Constitutional WD/WN, vitals as above + cachectic, + frail appearing and + lethargic; no acute distress Eyes EOM intact bilaterally; no conjunctival abnormality ENMT external ear and nose normal, oropharynx normal Neck trachea midline, no thyromegaly normal visual inspection Respiratory normal respiratory effort, lungs clear to auscultation no respiratory distress Cardiovascular RRR, no murmur, no edema Gastrointestinal (Abdomen) Inspection/Auscultation: abdomen normal to inspection; abdomen not distended Musculoskeletal no cyanosis or clubbing, extremities motor strength 5/5 Skin no rashes, warm and dry Neurologic moves all extremities and awake Psychiatric Orientation: alert, oriented to person and cooperative Discharge Data Allergies Allergy/AdvReac Type Severity Reaction Status Date / Time shellfish derived Allergy Severe anaphylaxis Verified 12/29/18 00:59 codeine Allergy Intermediate Hives Verified 12/29/18 00:59 promethazine Allergy Intermediate itchy/hives Verified 12/29/18 00:59 Consultations 12/29/18 00:51 ED Decision to Admit Stat 12/29/18 03:56 Consult Case Management - Discharge Planning Routine 12/29/18 15:34 Consult Nephrology Routine 12/31/18 10:17 Consult Psychiatry Routine Hospital Course (1) Diabetes mellitus type 1, with complication, on long term care administrator insulin pump: Was discharged, and returned within 12 hours with blood sugar >600. Insulin pump and sensor were examined by the patient educator (Paris Hernandez) and found to be in good working order. - Concern from family and staff is that he is not currently able to manage his DM due to his depression - Glycemic pharmacist is now managing his insulin. He was initially on an insulin drip. - In conjunction with Ivan, the family, and DM team, he was switched back to his basal-bolus insulin regimen. - Patient and family extensively counseled on insulin administration. (2) Gastroparesis: Ongoing issue. - Continue metoclopramide 5 mg p.o. 3 times daily. - On 12/30, got a dose of fosaprepitant 150mg IV x 1. - On 12/31, nausea and vomiting are improving. Asking for food. - By 01/01, his nausea is almost entirely gone. I feel that when his blood sugars get out of control, this really exacerbates his nausea. (3) Anxiety with depression: Discussed with psychiatry on 12/30. - Continue sertraline 200 mg every morning. - Added Wellbutrin SR 100mg PO daily -> Can titrate with outpatient psychiatry. (4) HTN (hypertension): BP elevated inpatient, though he was once again orthostatic at times. - Continue amlodipine 10 mg p.o. every morning. - Hydralazine PRN (5) End-stage renal disease on hemodialysis: Follows with [facility] nephrology. - Consulted on admission. - HD per nephrology (6) Hyperlipidemia LDL goal <70: Continue atorvastatin 10 mg every morning (7) Acid reflux: Increase famotidine 20 mg to twice daily (8) DVT prophylaxis: Heparin 5000 units BID Total Time Total Time Spent Total Time Spent (In Minutes): 30 Discharge Plan Discharge Items Patient Disposition: Home - Self-Care Reason For Visit: HYPERGLYCEMIA 600+ Discharge Diagnosis: Diabetic ketoacidosis Condition: Fair Discharge Goals: Decrease discomfort, Improve disease control and Improve function Activity: Resume your previous activity Non-emergency contact: Primary Care Provider and Specialist Call non-emergency contact if: your symptoms worsen Follow-up/Referrals: Cory Celestin MD [Primary Care Provider] - Diet: Carb Count or DM1 and Dialysis Renal Addtl Provider Instructions: Mr. De Los Santos, You were admitted to the hospital with nausea, vomiting, and a blood sugar elevated to over 600. As you know, with your Type 1 diabetes, this could be fatal. We have your blood sugars under control, and your nausea has improved as well. We switched you to basal-bolus insulin and will give your pump a break for now. We also started a second depression medication which is meant to improve your depression and possibly give you a bit more energy as part of your depression is feeling very tired. Check your blood sugar before each meal and before bed or when feeling funny BASAL INSULIN: Basaglar 13 units in the morning (Basaglar is a slow acting/24 hour insulin; helps cover the sugar your body makes) (take your Basaglar at the same time every day) (you do not need to take Basaglar with food) RAPID ACTING INSULIN (Bolus): Carb coverage: Admelog 1 unit for every 10 grams of carbohydrate (Admelog is a rapid-acting insulin; helps covers the carbohydrates you eat) (take immediately before eating) (do not take, if you do not eat any carbohydrates) Coverage for high blood sugar: Admelog 1 unit of insulin will lower your blood sugar approximately 35 points (additional Admelog is needed to help correct high blood sugar values) (add this to your Ademelog carbohydrate coverage when your blood sugar is above target) Blood Sugar Ademlog coverage for High Blood Sugar less than 150 -> no extra 151 - 185 -> + 1 unit 186 - 220 -> + 2 units 221 - 255 -> + 3 units 256 - 290 -> + 4 units 291 - 325 -> + 5 units 326 - 360 -> + 6 units 361 - 395 -> + 7 units 395 and above -> + 8 units and call provider Prescriptions: New bupropion HCl 100 mg Tablet Sustained-Release 12 Hr 100 mg PO DAILY Qty: 30 RF: 0 insulin lispro [Admelog SoloStar U-100 Insulin] 100 unit/mL insulin pen See Rx Instructions .ROUTE .COMPLEX Qty: 15 RF: 0 Basaglar KwikPen U-100 Insulin 100 unit/mL (3 mL) insulin pen 13 units SQ DAILY Qty: 15 RF: 0 aprepitant 80 mg capsule 80 mg PO .weekly PRN (Reason: nausea and vomiting) 28 Days Qty: 5 RF: 0 Continued atorvastatin 10 mg tablet 10 mg PO QAM RF: 0 cholecalciferol (vitamin D3) [Vitamin D3] 2,000 unit Capsule 2,000 unit PO QAM RF: 0 metoclopramide HCl 5 mg tablet 5 mg PO TID RF: 0 prochlorperazine [Compazine] 25 mg Suppository 25 mg RI DAILY PRN (Reason: Nausea) RF: 0 amlodipine 10 mg tablet 10 mg PO QAM RF: 0 Maries Caps 1 mg capsule 1 cap PO DAILY RF: 0 calcium acetate 667 mg capsule See Rx Instructions .ROUTE .COMPLEX MDD 7 CAPSULES/DAY RF: 0 famotidine 20 mg Tablet 20 mg PO QAM Qty: 30 RF: 5 sertraline 100 mg tablet 200 mg PO QAM Qty: 60 RF: 0 Discontinued Humalog U-100 Insulin 100 unit/mL Cartridge 1 sliding scale dose SUBCUT CONT RF: 0 Stand-Alone Forms: [facility]/Other Patient Handouts: Hyperglycemia Discharge Orders: Discharge Order (Routine); Ordered 01/02/19 Ordered By: Sergo Rey Admission Data Admit Date/Time: 12/29/18 02:44 Attending Provider: Sergo Rey Admit Provider: Colton Guajardo Primary Care Provider: Cory Celestin Other Providers: Sergo Rey ; Colton Guajardo ; Suman Montilla ; Estefania Sutton Service: Medical Other Interventions: Discharge Summary Assessment (RN) Last Done: 01/02/19 11:51 DC Date/Time DO NOT enter until pt leaves facility: 01/02/19 12:40
== END 2019-01-02 12:40 | disposition home or self-care (01) ==
LOC: 2S 22:46 → ED 22:46 → SUATTDRO 12-29 02:44 → 2S 12-29 03:29 → 3N 12-31 16:33

== ENCOUNTER 2019-01-31 09:07 | Inpatient (IN) ==
[2019-01-31] MEDS ORDERED: ONDANSETRON INJ 2 MG/ML 2 ML VIAL IV STA ×2 (09:32→13:02)
[2019-01-31] MEDS ORDERED: SODIUM CHLORIDE 0.9% 500 ML IV SCH (09:45)
[2019-01-31 10:19] LABS: Hematocrit (blood only) 41.4 % (42-52); Hemoglobin 14.2 g/dL (14.0-18.0); Mean Corpuscular Hgb Conc 34.3 g/dL (32-36); Mean Corpuscular Volume 93.2 fL (80-100); Mean Platelet Volume 8.4 fL (7.4-10.4); Platelet Count 279 K/uL (130-400); RDW Coefficient of Variation 17.1 % (11.5-14.5); RDW Standard Deviation 58.4 fL (36.4-46.3); Red Blood Count 4.44 M/uL (4.7-6.1); White Blood Count 15.94 K/uL (4.8-10.8)
[2019-01-31 10:29] LABS: Prothrombin Time 10.2 Seconds (9.0-12.0)
[2019-01-31 10:35] LABS: Albumin Level 3.5 gm/dl (3.4-5.0); BUN Creatinine Ratio 7.7 (10-20); Creatinine Clr Calc Pharmacy 18.8 ml/min; Est GFR (African American) 27.3; Est GFR (Non-African American) 23.6; Potassium 3.8 mmol/L (3.5-5.1)
[2019-01-31 10:36] LABS: Basophils # (auto) 0.07 K/uL (0-0.2); Basophils % (auto) 0.4 %; Eosinophils # (auto) 0.06 K/uL (0-0.5); Eosinophils % (auto) 0.4 %; Immature Granulocytes # (auto) 0.13 K/uL (0.00-0.02); Immature Granulocytes % (auto) 0.8 %; Lymphocytes % (auto) 5.6 %; Monocytes # (auto) 1.26 K/uL (0.11-0.59); Monocytes % (auto) 7.9 %; Neutrophils # (auto) 13.52 K/uL (1.4-6.5); Neutrophils % (auto) 84.9 %
[2019-01-31 10:38] LABS: Albumin Globulin Ratio 0.9 (0.9-2); Bilirubin,Total 0.6 mg/dl (0.2-1); Globulin 3.7 gm/dl (2.5-4.0); Total Protein 7.2 gm/dl (6.4-8.2)
[2019-01-31] MEDS ORDERED: PROCHLORPERAZINE 2 ML IV ONE (11:23)
[2019-01-31] MEDS ORDERED: IOVERSOL 100ml IV PRN (11:43)
--- NOTE | 2019-01-31 12:24 | CT Scan Report ---
ABDOMEN AND PELVIS CT WITH IV CONTRAST CT DOSE: 269.30 mGy.cm HISTORY: Nausea. Vomiting. Generalized abdominal pain TECHNIQUE: Multiaxial CT images of the abdomen and pelvis were performed following the use of intrave nous contrast. A dose lowering technique was utilized adhering to the principles of ALARA. COMPARISON STUDY: Abdomen and pelvis CT 12/19/2018. FINDINGS: The lung bases are clear. No pneumoperitoneum. No pneumatosis. Old mild superior endplate c ompression fractures at T11 and T12, unchanged. The liver, gallbladder, pancreas, spleen, and adrenal glands are unremarkable. No retroperitoneal lymphadenopathy. Stable right-sided nephrolithiasis. No hydronephrosis. Mesenteric and bilateral perinephric edema, unchanged. Stable 1.3 cm hypodense lesion within the upper pole the left kidney. This favors a cyst. Best seen on image 117 there is focal hyp odensity within the distal splenic vein near the portal splenic confluence. This could be due to mixi ng artifact versus a small partial thrombus. The portal vein and superior mesenteric veins are patent . Bladder wall thickening, unchanged. Questionable thickening of the descending colon proximal sigmoi d colon is likely due to underdistention. Otherwise, no definite bowel wall thickening or obstruction . The appendix appears surgically absent. IMPRESSION: 1. Focal hypodensity within the splenic vein near the portal splenic confluence. This could be due to mixing artifact or a nonocclusive thrombus. Splenic vein ultrasound is recommended for further evalu ation. 2. No definite bowel wall thickening or obstruction. 3. Right-sided nephrolithiasis. No hydronephrosis. 4. Chronic bladder wall thickening, unchanged. Recommend correlation with urinalysis to exclude a cys titis. 5. Additional stable findings as described above. Electronically signed by: Cristiano Brown M.D. 01/31/2019 12:23 PM
[2019-01-31] MEDS ORDERED: LABETALOL HCL IV 5 MG/ML 20ML IV STA ×2 (13:02→13:47)
--- NOTE | 2019-01-31 14:38 | Emergency Department Note ---
Entered by Damien Becker acting as a scribe for Obie Lancaster DO History of Present Illness General Chief complaint: Illness Source: patient and family (father) History of Present Illness Onset (ago): minute(s) (prior to arrival) Location: head Pain Consistency: + other (2 episodes) Quality: + other (syncope) Associated symptoms: + diaphoresis, + nausea/vomiting (+dry heaving) and + other (+elevated BP; +feeling soft; -abdominal pain; -urinary symptoms ) The patient is a 48 year old male who presents to the Emergency Room with complaints of two episodes of syncope that occurred prior to arrival, per the patient's father. The father reports the patient finished a full course dialysis treatment at [facility] when the patient's blood pressure went up and then experienced the episodes of syncope. The father also notes the patient was sweaty and soft during the episodes of syncope. The patient states he felt nauseous beginning last night, and he notes he has been dry heaving. The patient denies abdominal pain or urinary symptoms. The patient does not have a catheter. The patient notes he had an appendectomy, but he states he still has his gallbladder. The father also states that the patient's sugar levels have been in the 130s. The father of the patient reports that no one around them has been sick. He also reports the patient is scheduled to have an US for fistula on 01/04. Home Medications Home Medications Medication Instructions Recorded Confirmed Type [place] Caps 1 cap PO QAM 12/19/18 01/31/19 History calcium acetate 667 mg PO TIDM MDD 7 CAPSULES/DAY 12/19/18 01/31/19 History cholecalciferol (vitamin D3) 2,000 unit PO QAM 12/23/18 01/31/19 History [Vitamin D3] famotidine 20 mg PO QAM #30 tab 12/23/18 01/31/19 Rx metoclopramide HCl 5 mg PO TID 12/23/18 01/31/19 History sertraline 200 mg PO QAM #60 tab 12/28/18 01/31/19 Rx amlodipine 10 mg tablet 10 mg PO QAM tab 01/06/19 01/31/19 History atorvastatin 10 mg tablet 10 mg PO QAM tab 01/06/19 01/31/19 History prochlorperazine 25 mg rectal 25 mg MI BID PRN ea 01/06/19 01/31/19 History suppository ondansetron HCl 4 mg tablet 4 mg PO TID PRN 01/12/19 01/31/19 History aprepitant 80 mg PO WK 01/31/19 01/31/19 History bupropion HCl 100 mg PO QAM 01/31/19 01/31/19 History insulin glargine [Basaglar KwikPen 13 units SQ DAILY@0930 01/31/19 01/31/19 History U-100 Insulin] insulin lispro [Admelog SoloStar See Rx Instructions SUBCUT DAILY 01/31/19 01/31/19 History U-100 Insulin] PRN Allergies Allergy/AdvReac Type Severity Reaction Status Date / Time shellfish derived Allergy Severe anaphylaxis Verified 01/31/19 11:20 codeine Allergy Intermediate Hives Verified 01/31/19 11:20 promethazine Allergy Intermediate itchy/hives Verified 01/31/19 11:20 Past Med/Surg History Medical History Acid reflux Hypertension Type I diabetes mellitus Insulin pump (diagnosed at age 31) Gastroparesis due to DM Depression Anemia Anxiety CAD (coronary artery disease) mild, non-obstructive CAD per 10/2018 cardiac cath ESRD (end stage renal disease) Hemodialysis M,W,F (Follows with Dr. Taylor Higgins; [facility]). Kidney stones Peripheral neuropathy Retinopathy due to secondary diabetes Surgical History History of appendectomy H/O shoulder surgery RIGHT History of hip surgery LEFT HIP ARTHROSCOPY History of cardiac cath 10/2018= no stents, no obstructive disease (at [facility]) History of lithotripsy Permanent central venous catheter in place Permacath Family History Grandfather Myocardial infarction Grandfather (Maternal) Family history of diabetes mellitus Uncle Myocardial infarction Social History Preferred Language: Tamaz[place] Communication Ability: Effective Visual Impairment: No Limitations Hearing Ability: Normal Sql Engineer Required: No Beliefs That Will Affect Care: None marital status: Legally Current Living Situation: Family current occupational status: unemployed Other Information That Helps Us Care for You: No Feels Safe at Home: Yes Safety Concerns: Feels Safe At This Time Smoking Status: Never smoker Tobacco Type: smokeless tobacco ; Second Hand Exposure: No ; Hx Alcohol Use: No Hx Substance Use: No Childhood Exposure to Second-Hand Smoke: Yes Dental Care, Regularly: No Physical Activity Frequency: 1-2 Times per Week Seatbelt Use: always Sunscreen Use: No Review of Systems See HPI for pertinent positives & negatives. and A total of 10 systems reviewed and were otherwise negative Physical Exam Vital Signs Vital Signs - 24 hr 01/31/19 09:09 01/31/19 09:12 01/31/19 09:25 Temperature 36.4 C L Temperature Source Oral Sepsis Recent Fever Within 48 Hours No Sepsis New/Unexplained Change in Mental Status No Sepsis Action Taken by Nursing No Action Required Pulse Rate 99 H 106 H 98 H Pulse Rate from SpO2 Sensor 98 H Pulse Rhythm Regular Pulse Strength Normal Respiratory Rate 20 22 20 Respiratory Effort / Characteristics Non-Labored Spontaneous Respiratory Depth Normal Respiratory Pattern Regular Blood Pressure 199/116 H 199/116 H 212/126 H Blood Pressure Mean 143 143 154 Blood Pressure Position Lying Pulse Oximetry 100 100 Oxygen Delivery Method Room Air 01/31/19 09:30 01/31/19 09:32 01/31/19 09:52 Temperature Temperature Source Sepsis Recent Fever Within 48 Hours Sepsis New/Unexplained Change in Mental Status Sepsis Action Taken by Nursing Pulse Rate 94 H 97 H Pulse Rate from SpO2 Sensor 94 H 97 H Pulse Rhythm Pulse Strength Respiratory Rate 10 L 15 Respiratory Effort / Characteristics Respiratory Depth Respiratory Pattern Blood Pressure 201/138 H 221/129 H Blood Pressure Mean 159 159 Blood Pressure Position Pulse Oximetry 100 100 100 Oxygen Delivery Method Room Air 01/31/19 10:00 01/31/19 10:15 01/31/19 10:30 Temperature Temperature Source Sepsis Recent Fever Within 48 Hours Sepsis New/Unexplained Change in Mental Status Sepsis Action Taken by Nursing Pulse Rate 96 H 97 H 100 H Pulse Rate from SpO2 Sensor 96 H 98 H 100 H Pulse Rhythm Pulse Strength Respiratory Rate 13 10 L 9 L Respiratory Effort / Characteristics Respiratory Depth Respiratory Pattern Blood Pressure 227/129 H 231/125 H 224/136 H Blood Pressure Mean 161 160 165 Blood Pressure Position Pulse Oximetry 100 100 100 Oxygen Delivery Method 01/31/19 10:45 01/31/19 11:00 01/31/19 11:15 Temperature Temperature Source Sepsis Recent Fever Within 48 Hours Sepsis New/Unexplained Change in Mental Status Sepsis Action Taken by Nursing Pulse Rate 98 H 97 H 100 H Pulse Rate from SpO2 Sensor 98 H 97 H 100 H Pulse Rhythm Pulse Strength Respiratory Rate 14 14 19 Respiratory Effort / Characteristics Respiratory Depth Respiratory Pattern Blood Pressure 213/121 H 218/119 H 216/124 H Blood Pressure Mean 151 152 154 Blood Pressure Position Pulse Oximetry 100 100 100 Oxygen Delivery Method 01/31/19 11:30 01/31/19 12:01 01/31/19 12:15 Temperature Temperature Source Sepsis Recent Fever Within 48 Hours Sepsis New/Unexplained Change in Mental Status Sepsis Action Taken by Nursing Pulse Rate 100 H 97 H 96 H Pulse Rate from SpO2 Sensor 100 H 97 H 96 H Pulse Rhythm Pulse Strength Respiratory Rate 14 13 11 L Respiratory Effort / Characteristics Respiratory Depth Respiratory Pattern Blood Pressure 213/128 H 215/137 H Blood Pressure Mean 156 163 Blood Pressure Position Pulse Oximetry 100 100 99 Oxygen Delivery Method Room Air 01/31/19 12:30 01/31/19 12:45 01/31/19 13:00 Temperature Temperature Source Sepsis Recent Fever Within 48 Hours Sepsis New/Unexplained Change in Mental Status Sepsis Action Taken by Nursing Pulse Rate 94 H 97 H 103 H Pulse Rate from SpO2 Sensor 94 H Pulse Rhythm Pulse Strength Respiratory Rate 7 L 15 13 Respiratory Effort / Characteristics Respiratory Depth Respiratory Pattern Blood Pressure 216/133 H 214/131 H 207/127 H Blood Pressure Mean 160 158 153 Blood Pressure Position Pulse Oximetry 99 100 100 Oxygen Delivery Method Room Air Room Air Room Air 01/31/19 13:13 01/31/19 13:15 01/31/19 13:20 Temperature Temperature Source Sepsis Recent Fever Within 48 Hours Sepsis New/Unexplained Change in Mental Status Sepsis Action Taken by Nursing Pulse Rate 101 H 97 H Pulse Rate from SpO2 Sensor Pulse Rhythm Pulse Strength Respiratory Rate 16 13 Respiratory Effort / Characteristics Respiratory Depth Respiratory Pattern Blood Pressure 207/125 H 188/114 H Blood Pressure Mean 152 138 Blood Pressure Position Pulse Oximetry 100 100 Oxygen Delivery Method Room Air Room Air Room Air 01/31/19 13:29 01/31/19 13:30 01/31/19 13:32 Temperature Temperature Source Sepsis Recent Fever Within 48 Hours Sepsis New/Unexplained Change in Mental Status Sepsis Action Taken by Nursing Pulse Rate 94 H 94 H 94 H Pulse Rate from SpO2 Sensor 95 H 94 H Pulse Rhythm Pulse Strength Respiratory Rate 20 18 20 Respiratory Effort / Characteristics Respiratory Depth Respiratory Pattern Blood Pressure 203/115 H 207/115 H Blood Pressure Mean 144 145 Blood Pressure Position Pulse Oximetry 100 100 100 Oxygen Delivery Method Room Air 01/31/19 13:45 01/31/19 13:57 Temperature Temperature Source Sepsis Recent Fever Within 48 Hours Sepsis New/Unexplained Change in Mental Status Sepsis Action Taken by Nursing Pulse Rate 91 H 92 H Pulse Rate from SpO2 Sensor 91 H 92 H Pulse Rhythm Pulse Strength Respiratory Rate 21 16 Respiratory Effort / Characteristics Respiratory Depth Respiratory Pattern Blood Pressure 221/123 H 212/123 H Blood Pressure Mean 155 152 Blood Pressure Position Pulse Oximetry 98 100 Oxygen Delivery Method GENERAL: sitting up in bed, chronically-ill appearing, dry heaving, in mild distress EYE EXAM: normal conjunctiva, PERRL and EOM's grossly intact OROPHARYNX: no exudate, no erythema, lips, buccal mucosa, and tongue normal and mucous membranes are moist NECK: supple, no nuchal rigidity, no adenopathy, non-tender CHEST: Central catheter located along right chest wall LUNGS: Clear to auscultation. Normal chest wall mechanics HEART: no murmurs, S1 normal and S2 normal ABDOMEN: abdomen soft, non-tender, normo-active bowel sounds, no masses, no rebound or guarding. BACK: Back is symmetrical on inspection and there is no deformity, no midline tenderness, no CVA tenderness. SKIN: no rashes and no bruising UPPER EXTREMITIES: incision in left forearm, no thrill or bruit LOWER EXTREMITIES: No pitting edema. NEURO EXAM: Normal sensorium, cranial nerves II-XII grossly intact, normal speech, no gross weakness of arms, no gross weakness of legs. Course ED COURSE: Vital signs were reviewed and showed hypertensive. The patients medical record was reviewed The above diagnostic studies were performed and reviewed. ED treatments and interventions as stated above. 0925: The patient was evaluated in room A11B. A complete history and physical examination was performed. 1344: I discussed the patient's case with Dr. Wahl [facility]. Dr. Koroma will further evaluate the patient. Based on the patients age, coexisting illnesses, exam and lab findings the decision to treat as an inpatient was made. The patient remained stable while under my care. The patient will be evaluated for further management. Consultations Consultation #1: I discussed the patient's case with Dr. Koroma-Joellen [facility]. Dr. Koroma will further evaluate the patient. Time: 13:44 Administered Medications Ioversol (Optiray 320 100ml) 94 ml IV ONCE PRN PRN Reason: Interaction Checking Stop: 02/04/19 11:42 Last Admin: 01/31/19 11:44 Dose: 94 ml Documented by: [id number] Discontinued Medications Sodium Chloride (Nss) 500 mls @ 999 mls/hr IV .Q31M JACKI Stop: 01/31/19 10:15 Last Infusion: 01/31/19 10:56 Dose: 0 mls/hr Documented by: [id number] Admin: 01/31/19 09:55 Dose: 999 mls/hr Documented by: [id number] Prochlorperazine (Compazine) 2 mls @ 1 mls/min IV ONE ONE Stop: 01/31/19 11:24 Last Admin: 01/31/19 11:33 Dose: 1 mls/min Documented by: [id number] Labetalol HCl (Normodyne) 10 mg IV NOW STA Stop: 01/31/19 13:03 Last Admin: 01/31/19 13:16 Dose: 10 mg Documented by: [id number] Cosigned by: [id number] Labetalol HCl (Normodyne) 10 mg IV NOW STA Stop: 01/31/19 13:48 Last Admin: 01/31/19 13:51 Dose: 10 mg Documented by: [id number] Cosigned by: [id number] Ondansetron HCl (Zofran) 4 mg IV NOW STA Stop: 01/31/19 09:33 Last Admin: 01/31/19 09:55 Dose: 4 mg Documented by: [id number] Ondansetron HCl (Zofran) 4 mg IV NOW STA Stop: 01/31/19 13:03 Last Admin: 01/31/19 13:14 Dose: 4 mg Documented by: [id number] Medical Decision Making Differential Diagnosis Differential diagnosis: Etiologies such as vasovagal event, infection, hypoglycemia, electrolyte abnormalities, cardiac sources, intracerebral event, toxicologic, neurologic, as well as others were entertained. Medical Records Attestation: I reviewed the patient's medical records. Home Medications Current Medication List: was personally reviewed by me Laboratory Data Attestation: I reviewed the patient's lab results. Result diagrams: 01/31/19 10:04 01/31/19 10:04 Lab Results 01/31/19 01/31/19 01/31/19 Range/Units 10:04 10:04 10:04 WBC 15.94 H (4.8-10.8) K/uL RBC 4.44 L (4.7-6.1) M/uL Hgb 14.2 (14.0-18.0) g/dL Hct 41.4 L (42-52) % MCV 93.2 (80-100) fL MCH 32.0 (25-34) pg MCHC 34.3 (32-36) g/dL RDW Std Deviation 58.4 H (36.4-46.3) fL RDW Coeff of Kami 17.1 H (11.5-14.5) % Plt Count 279 (130-400) K/uL MPV 8.4 (7.4-10.4) fL Immature Gran % (Auto) 0.8 % Neut % (Auto) 84.9 % Lymph % (Auto) 5.6 % Wilson % (Auto) 7.9 % Eos % (Auto) 0.4 % Baso % (Auto) 0.4 % Immature Gran # (Auto) 0.13 H (0.00-0.02) K/uL Neut # (Auto) 13.52 H (1.4-6.5) K/uL Lymph # (Auto) 0.90 L (1.2-3.4) K/uL Wilson # (Auto) 1.26 H (0.11-0.59) K/uL Eos # (Auto) 0.06 (0-0.5) K/uL Baso # (Auto) 0.07 (0-0.2) K/uL PT 10.2 (9.0-12.0) Seconds INR 1.0 (0.9-1.1) Sodium 132 L (136-145) mmol/L Potassium 3.8 (3.5-5.1) mmol/L Chloride 95 L (98-107) mmol/L Carbon Dioxide 25 (21-32) mmol/L Anion Gap 12.0 H (3-11) BUN 23 H (7-18) mg/dl Creatinine 2.99 H (0.6-1.4) mg/dl Est Cr Clr Drug Dosing 18.8 ml/min Est GFR ( Amer) 27.3 Est GFR (Non-Af Amer) 23.6 BUN/Creatinine Ratio 7.7 L (10-20) Glucose 238 H (70-99) mg/dl Calcium 9.0 (8.5-10.1) mg/dl Total Bilirubin 0.6 (0.2-1) mg/dl AST 21 (15-37) U/L ALT 24 (12-78) U/L Alkaline Phosphatase 117 (45-117) U/L Total Protein 7.2 (6.4-8.2) gm/dl Albumin 3.5 (3.4-5.0) gm/dl Globulin 3.7 (2.5-4.0) gm/dl Albumin/Globulin Ratio 0.9 (0.9-2) Lipase 195 (73-393) U/L Imaging Data Radiologist's Impression: ABDOMEN AND PELVIS CT WITH IV CONTRAST CT DOSE: 269.30 mGy.cm HISTORY: Nausea. Vomiting. Generalized abdominal pain TECHNIQUE: Multiaxial CT images of the abdomen and pelvis were performed following the use of intravenous contrast. A dose lowering technique was utilized adhering to the principles of ALARA. COMPARISON STUDY: Abdomen and pelvis CT 12/19/2018. FINDINGS: The lung bases are clear. No pneumoperitoneum. No pneumatosis. Old mild superior endplate compression fractures at T11 and T12, unchanged. The l iver, gallbladder, pancreas, spleen, and adrenal glands are unremarkable. No retroperitoneal lymphadenopathy. Stable right-sided nephrolithiasis. No hydronephrosis. Mesenteric and bilateral perinephric edema, unchanged. Stable 1.3 cm hypodense lesion within the upper pole the left kidney. This favors a cyst. Best seen on image 117 there is focal hypodensity within the distal splenic vein near the portal splenic confluence. This could be due to mixing artifact versus a small partial thrombus. The portal vein and superior mesenteric veins are patent. Bladder wall thickening, unchanged. Questionable thickening of the descending colon proximal sigmoid colon is likely due to underdistention. Otherwise, no definite bowel wall thickening or obstruction. The appendix appears surgically absent. IMPRESSION: 1. Focal hypodensity within the splenic vein near the portal splenic confluence. This could be due to mixing artifact or a nonocclusive thrombus. Splenic vein ultrasound is recommended for further evaluation. 2. No definite bowel wall thickening or obstruction. 3. Right-sided nephrolithiasis. No hydronephrosis. 4. Chronic bladder wall thickening, unchanged. Recommend correlation with u rinalysis to exclude a cystitis. 5. Additional stable findings as described above. Electronically signed by: Cristiano Brown M.D. 01/31/2019 12:23 PM ECG Data Attestation: I personally reviewed and interpreted this ECG as follows: Indication: syncope Rate (beats per minute): 97 Rhythm: sinus rhythm Findings: + other (normal axis, ST wave changes in lateral lead ) and + prolonged QT Comparison ECG Date: from (12/30/18) Change: the following changes noted (QTC has lengthened ) Blood Pressure Blood Pressure Findings: Elevated blood pressure Blood Pressure Disposition: further management by hospitalist DAVID Narrative Patient is a 48-year-old male who presents the ER for persistent nausea vomiting following dialysis. He is dialysis Thursday. Dry heaving has been unable to keep down. He gets dialysis at [facility] and there was report that he passed out twice with vomiting. IV was established blood work was obtained and showed a dose of 15,000 which I favor secondary to the vomiting. No significant anemia.. BMP with mild hyponatremia. Creatinine is at 2.9. LFTs bilirubin and lipase is unremarkable. CT abdomen pelvis showed questionable clot in the splenic vein. Ultrasound was ordered. EKG with a prolonged QTC but patient was given Zofran and Phenergan prior to this along with IV fluids. Bedside. With the persistent vomiting discussed with the hospitalist. Ultrasound splenic vein was performed as well and pending on admission. Patient was given 2 doses of IV labetalol as blood pressures were 230s systolically. They did trend down to the high 100s. He is not taking any of his medications as he is been sick all morning. Impression & Plan Nausea, Hypertension, Vomiting, End-stage renal disease on hemodialysis Critical Care Time Critical Care Time: Yes Total Critical Care Time: 30 I have personally spent 30 minutes of critical care time in the direct management of this patient. This includes bedside care, interpretation of diagnostic studies, and testing, discussion with consultants, patient, and family members, and other required patient management activities. This 30 minutes is in excess of all separately billable procedures. Discharge Plan Visit Data Chief Complaint: Illness ED Provider: Obie Lancaster Discharge Problem: Nausea, Hypertension, Vomiting, End-stage renal disease on hemodialysis Patient Disposition: Being Evaluated by Hospitalist Forms Stand Alone Forms: My [facility] Prescriptions Prescriptions: No Action ondansetron HCl [Zofran] 4 mg tablet 4 mg PO TID PRN (Reason: Nausea And Vomiting) RF: 0 atorvastatin 10 mg tablet 10 mg PO QAM RF: 0 cholecalciferol (vitamin D3) [Vitamin D3] 2,000 unit Capsule 2,000 unit PO QAM RF: 0 metoclopramide HCl 5 mg tablet 5 mg PO TID RF: 0 prochlorperazine [Compazine] 25 mg suppository 25 mg MI BID PRN (Reason: Nausea) RF: 0 Chris Caps 1 mg capsule 1 cap PO QAM RF: 0 calcium acetate 667 mg capsule 667 mg PO TIDM MDD 7 CAPSULES/DAY RF: 0 famotidine 20 mg Tablet 20 mg PO QAM Qty: 30 RF: 5 amlodipine 10 mg tablet 10 mg PO QAM RF: 0 sertraline 100 mg tablet 200 mg PO QAM Qty: 60 RF: 0 aprepitant 80 mg capsule 80 mg PO WK RF: 0 bupropion HCl 100 mg tablet sustained-release 12 hr 100 mg PO QAM RF: 0 insulin lispro [Admelog SoloStar U-100 Insulin] 100 unit/mL insulin pen See Rx Instructions subcut DAILY PRN (Reason: sliding scale) RF: 0 Basaglar KwikPen U-100 Insulin 100 unit/mL (3 mL) insulin pen 13 units SQ DAILY@0930 RF: 0 Referrals Referrals: Cory Celestin MD [Primary Care Provider] - Discharge Problem: Hypertension Qualifiers: Hypertension type: unspecified Qualified Code(s): I10 - Essential (primary) hypertension Vomiting Qualifiers: Vomiting type: unspecified Vomiting Intractability: unspecified Nausea presence: with nausea Qualified Code(s): R11.2 - Nausea with vomiting, unspecified The scribe's documentation has been prepared under my direction and personally reviewed by me in its entirety. I confirm that the note above accurately reflects all work, treatment, procedures, and medical decision making performed by me.
--- NOTE | 2019-01-31 14:40 | Ultrasound Report ---
US duplex portal hepatic veins CLINICAL HISTORY: 48 years-old Male presenting with ? splenic venous clot. TECHNIQUE: Real-time grayscale and color and spectral Doppler ultrasound imaging of the liver was per formed. COMPARISON: CT from earlier today. FINDINGS: Spleen: Normal echogenicity and echotexture. The spleen is normal in size measuring 11.1 cm in philip l sagittal dimension. Vasculature: Portal veins: The portal venous confluence is patent. Main portal vein with normal antegrade flow and gentle undulating waveforms. Peak velocity 21 cm/s. Right and left portal veins with normal directio nal flow. Hepatic arteries: Proper hepatic artery with normal parenchymal arterial waveforms. Peak systolic linus ocity 100 cm/s, which is top normal. Hepatic veins: Right, middle, and left hepatic veins with normal triphasic waveforms. Splenic vein: Patent. No thrombus is evident. Velocity within the splenic vein measures 21 cm/s. Norm al color Doppler flow within the splenic hilum. IVC: Not interrogated. Ascites: None. Other: None. IMPRESSION: Patent splenic vein. No evidence of splenic vein thrombosis. Electronically signed by: Jose Zaldivar M.D. 01/31/2019 2:39 PM
[2019-01-31] MEDS ORDERED: METOPROLOL TARTRATE 1 MG/ML VIAL IV STA (15:57)
--- NOTE | 2019-01-31 15:59 | History & Physical Report ---
Date of Service January 31, 2019 Assessment & Plan (1) Nausea: inability to tolerate PO due to n/v, uncertain etiology Hx of gastroparesis vs acute GE seem most likely PRN meds CTAP as noted, US neg for thrombosis CBC, PRP WNL for pt UA pending collection, possible cystitis noted on CTAP (2) Hypertension: Missed AM meds today Monitor metoprolol 5mg IV x1 (3) End stage renal disease on dialysis: Completed session today M/W/F HD Follows with [facility], c/s pending (4) Dyslipidemia: Holding given above (5) Gastroparesis: Meds as at home (6) Depression: continue home meds (7) Anxiety: continue home meds (8) DM type 1 (diabetes mellitus, type 1): SSI PRN Holding home regimen given inability to tolerate PO (9) DVT prophylaxis: SCDs History of Present Illness Primary Care Provider: Cory Celestin MD 48 y/o M c/o n/v starting yesterday. Pt states he has not been able to keep anything down for about 24 hours. He states that this is usually how he feels when his BS are elevated or when his gastroparesis is an issue. His BS yesterday were in the 130s though. He was able to go to HD today and they were able to complete his session, but he did have n/v during this. His BP was high there, but he generally takes his medications after HD. His last meds were yesterday AM. No abd pain. Pt denies fever, SOB, chest pain, c/d, LE pain or swelling. Pt states he does feel a bit improved s/p IVF in the ED, but still with ongoing n/v. Allergies Allergy/AdvReac Type Severity Reaction Status Date / Time shellfish derived Allergy Severe anaphylaxis Verified 01/31/19 11:20 codeine Allergy Intermediate Hives Verified 01/31/19 11:20 promethazine Allergy Intermediate itchy/hives Verified 01/31/19 11:20 Home Medications Home Medications Medication Instructions Recorded Confirmed Type [place] Caps 1 cap PO QAM 12/19/18 01/31/19 History calcium acetate 667 mg PO TIDM MDD 7 CAPSULES/DAY 12/19/18 01/31/19 History cholecalciferol (vitamin D3) 2,000 unit PO QAM 12/23/18 01/31/19 History [Vitamin D3] famotidine 20 mg PO QAM #30 tab 12/23/18 01/31/19 Rx metoclopramide HCl 5 mg PO TID 12/23/18 01/31/19 History sertraline 200 mg PO QAM #60 tab 12/28/18 01/31/19 Rx amlodipine 10 mg tablet 10 mg PO QAM tab 01/06/19 01/31/19 History atorvastatin 10 mg tablet 10 mg PO QAM tab 01/06/19 01/31/19 History prochlorperazine 25 mg rectal 25 mg [place] BID PRN ea 01/06/19 01/31/19 History suppository ondansetron HCl 4 mg tablet 4 mg PO TID PRN 01/12/19 01/31/19 History aprepitant 80 mg PO WK 01/31/19 01/31/19 History bupropion HCl 100 mg PO QAM 01/31/19 01/31/19 History insulin glargine [Chingaglfrancy Mayers 13 units SQ DAILY@0930 01/31/19 01/31/19 History U-100 Insulin] insulin lispro [elvincent E[place]aoStfrancy See Rx Instructions SUBCUT DAILY 01/31/19 01/31/19 History U-100 Insulin] PRN Past Med/Surg History Medical History Acid reflux Hypertension Type I diabetes mellitus Insulin pump (diagnosed at age 31) Gastroparesis due to DM Depression Anemia Anxiety CAD (coronary artery disease) mild, non-obstructive CAD per 10/2018 cardiac cath ESRD (end stage renal disease) Hemodialysis M,W,F (Follows with Dr. Taylor Higgins; [facility]/[place]). Kidney stones Peripheral neuropathy Retinopathy due to secondary diabetes Surgical History History of appendectomy H/O shoulder surgery RIGHT History of hip surgery LEFT HIP ARTHROSCOPY History of cardiac cath 10/2018= no stents, no obstructive disease (at [facility]) History of lithotripsy Permanent central venous catheter in place Permacath Family History Grandfather Myocardial infarction Grandfather (Maternal) Family history of diabetes mellitus Uncle Myocardial infarction Social History Preferred Language: Ukrainian Communication Ability: Effective Visual Impairment: No Limitations Hearing Ability: Normal Youth Services Specialist Required: No Beliefs That Will Affect Care: None marital status: Legally Current Living Situation: Family current occupational status: unemployed Other Information That Helps Us Care for You: No Feels Safe at Home: Yes Safety Concerns: Feels Safe At This Time Smoking Status: Never smoker Tobacco Type: smokeless tobacco ; Second Hand Exposure: No ; Hx Alcohol Use: No Hx Substance Use: No Childhood Exposure to Second-Hand Smoke: Yes Dental Care, Regularly: No Physical Activity Frequency: 1-2 Times per Week Seatbelt Use: always Sunscreen Use: No Review of Systems Review of Systems: Pertinent positives and negatives reviewed in HPI--all others negative Physical Exam Constitutional: WD/WN, vitals as above Eyes: normal visual garcia by confrontation and + anicteric sclerae Neck: normal visual inspection and trachea midline Respiratory: normal respiratory effort, lungs clear to auscultation Cardiovascular: Rate/Rhythm: regular rate and regular rhythm Gastrointestinal (Abdomen): Inspection/Auscultation: abdomen not distended Percussion/Palpation: abdomen soft; abdomen nontender Musculoskeletal: Head/Neck/Chest: normocephalic and head atraumatic negative for edema, peripheral pulses intact Skin: no rashes, warm and dry Neurologic: awake; not confused Speech / Cognition: normal speech Psychiatric: Orientation: oriented x 3 ill appearing Results & Data Vital Signs (Past 12 Hours) Vital Signs Temp Pulse Resp BP Pulse Ox 01/31/19 15:00 93 H 15 227/131 H 98 01/31/19 14:45 92 H 17 216/122 H 100 01/31/19 14:39 95 H 15 209/115 H 100 01/31/19 13:57 92 H 16 212/123 H 100 01/31/19 13:45 91 H 21 221/123 H 98 01/31/19 13:32 94 H 20 100 01/31/19 13:30 94 H 18 207/115 H 100 01/31/19 13:29 94 H 20 203/115 H 100 01/31/19 13:20 97 H 13 188/114 H 100 01/31/19 13:15 101 H 16 207/125 H 100 01/31/19 13:00 103 H 13 207/127 H 100 01/31/19 12:45 97 H 15 214/131 H 100 01/31/19 12:30 94 H 7 L 216/133 H 99 01/31/19 12:15 96 H 11 L 215/137 H 99 01/31/19 12:01 97 H 13 213/128 H 01/31/19 11:30 100 H 14 100 01/31/19 11:15 100 H 19 216/124 H 01/31/19 11:00 97 H 14 218/119 H 100 01/31/19 10:45 98 H 14 213/121 H 01/31/19 10:30 100 H 9 L 224/136 H 01/31/19 10:15 97 H 10 L 231/125 H 01/31/19 10:00 96 H 13 227/129 H 01/31/19 09:52 97 H 15 221/129 H 01/31/19 09:32 100 01/31/19 09:30 94 H 10 L 201/138 H 01/31/19 09:25 98 H 20 212/126 H 01/31/19 09:12 36.4 C L 106 H 22 199/116 H 01/31/19 09:09 99 H 20 199/116 H Diagnostic Findings CTAP:1. Focal hypodensity within the splenic vein near the portal splenic confluence. This could be due to mixing artifact or a nonocclusive thrombus. Splenic vein ultrasound is recommended for further evaluation. 2. No definite bowel wall thickening or obstruction. 3. Right-sided nephrolithiasis. No hydronephrosis. 4. Chronic bladder wall thickening, unchanged. Recommend correlation with urinalysis to exclude a cystitis. Code Status & VTE Plan Code Status Full code VTE Prophylaxis Plan VTE Prophylaxis will be ordered: Yes PG Care Time/CCT Total # of Minutes Spent Total Time Spent with Patient: Total time spent is greater than 50% in coordination of care (as documented) at patient's floor/unit and/or counseling patient: (1) Hypertension Hypertension type: unspecified Qualified Code(s): I10 - Essential (primary) hypertension (2) Depression Depression Type: major depressive disorder Major depression recurrence: unspecified whether recurrent Active/Remission status: currently active Major depression episode severity: severe Psychotic features: without psychotic features Qualified Code(s): F32.2 - Major depressive disorder, single episode, severe without psychotic features
[2019-01-31] MEDS ORDERED: PROCHLORPERAZINE 25 MG SUPP PR PRN (17:55)
[2019-01-31] MEDS ORDERED: ONDANSETRON 4 MG TAB PO PRN (17:55)
[2019-01-31] MEDS ORDERED: DEXTROSE 50% 50 ML SYRINGE IV PRN (17:55)
[2019-01-31] MEDS ORDERED: GLUCOSE 40% GEL 15 GM TUBE PO PRN (17:55)
[2019-01-31] MEDS ORDERED: GLUCOSE 10 TABS/TUBE PO PRN (17:55)
[2019-01-31] MEDS ORDERED: MAGNESIUM HYDROXIDE SUSP 30 ML UDC PO PRN (17:55)
[2019-01-31] MEDS ORDERED: GLUCAGON FOR INJ 1 MG VIAL SQ PRN (17:55)
[2019-01-31] MEDS ORDERED: ACETAMINOPHEN 325 MG TAB PO PRN (17:55)
[2019-01-31] MEDS ORDERED: SODIUM CHLORIDE 0.45 % 1,000 ML IV SCH (19:00)
[2019-01-31] MEDS: INSULIN ASPART 100 UNITS/ML 3 ML PEN SC SCH ×2 (19:49→21:17)
[2019-01-31] MEDS: CALCIUM ACETATE 667 MG CAP PO SCH (19:54)
[2019-01-31] MEDS ORDERED: INSULIN GLARGINE SOLOSTAR 100 UNITS/ML 3 ML PEN SC ONE (21:00)
[2019-01-31] MEDS: ONDANSETRON INJ 2 MG/ML 2 ML VIAL IV PRN (21:35)
[2019-02-01] MEDS ORDERED: INSULIN GLARGINE SOLOSTAR 100 UNITS/ML 3 ML PEN SC STA (00:26)
[2019-02-01] MEDS: ONDANSETRON INJ 2 MG/ML 2 ML VIAL IV PRN ×4 (03:32→23:58)
[2019-02-01 07:17] LABS: Basophils # (auto) 0.07 K/uL (0-0.2); Basophils % (auto) 0.6 %; Eosinophils # (auto) 0.06 K/uL (0-0.5); Eosinophils % (auto) 0.5 %; Hematocrit (blood only) 37.3 % (42-52); Hemoglobin 12.3 g/dL (14.0-18.0); Immature Granulocytes # (auto) 0.06 K/uL (0.00-0.02); Immature Granulocytes % (auto) 0.5 %; Lymphocytes # (auto) 2.62 K/uL (1.2-3.4); Lymphocytes % (auto) 22.4 %; Mean Corpuscular Hemoglobin 31.4 pg (25-34); Mean Corpuscular Volume 95.2 fL (80-100); Mean Platelet Volume 8.9 fL (7.4-10.4); Monocytes # (auto) 1.66 K/uL (0.11-0.59); Monocytes % (auto) 14.2 %; Neutrophils # (auto) 7.24 K/uL (1.4-6.5); Neutrophils % (auto) 61.8 %; Platelet Count 292 K/uL (130-400); RDW Standard Deviation 61.9 fL (36.4-46.3); Red Blood Count 3.92 M/uL (4.7-6.1); White Blood Count 11.71 K/uL (4.8-10.8)
[2019-02-01] MEDS: CARBOHYDRATES FOR HYPOGLYCEMIA PO PRN (07:27)
[2019-02-01] MEDS: METOCLOPRAMIDE HCL 5 MG TABLET PO SCH ×3 (07:28→17:38)
[2019-02-01 08:07] LABS: Calcium 8.1 mg/dl (8.5-10.1); Creatinine Clr Calc Pharmacy 15.7 ml/min; Est GFR (African American) 15.5; Est GFR (Non-African American) 13.4; Magnesium 2.3 mg/dl (1.8-2.4); Phosphorus 5.7 mg/dl (2.5-4.9); Potassium 4.4 mmol/L (3.5-5.1)
[2019-02-01] MEDS: CALCIUM ACETATE 667 MG CAP PO SCH ×3 (09:18→17:38)
[2019-02-01] MEDS: INSULIN ASPART 100 UNITS/ML 3 ML PEN SC SCH ×4 (09:30→21:12)
--- NOTE | 2019-02-01 10:05 | Nephrology Consultation ---
Date of Consultation February 01, 2019 Assessment & Plan (1) End stage renal disease on dialysis: Patient with ESRD due to diabetic nephropathy on dialysis Thursday using right tunneled IJ catheter. He is last dialysis was yesterday for 4 hours. His electrolytes are stable with no signs of volume overload. No indication for dialysis today. We will plan dialysis tomorrow 02/02/2019 for 4 hours to get UF 1-2 L. (2) Hypertension: Blood pressure is above target partly due to nausea and vomiting, unable to tolerate p.o. meds. He is GI symptoms are improving. Recommend resuming home medications for blood pressure. (3) DM type 1 (diabetes mellitus, type 1): Patient with type I DM and fluctuating blood sugars. He is on insulin per primary team. Recommend stopping IV fluids as he is a dialysis patient. (4) Vomiting: Patient with a history of gastroparesis. Continue conservative management per primary care team with anti emetics. Will avoid aggressive ultrafiltration at dialysis. History of Present Illness Reason for Consultation: ESRD complicated by vomiting Requesting Physician: Ga Hope DO Attending Physician: Lisa Collier MD History of Present Illness This is a 48 y/o m with a history of DMI, HTN, HLD, systolic CHF, ESRD on HD MWF at [facility], severe gastroparesis with intractable vomiting, severe depression who was admitted on 01/31/2019 with nausea and vomiting. Patient is dialyzed using a tunneled dialysis catheter in the right IJ. His last dialysis was on 01/31/2019. Patient reports feeling sick the whole day with nausea and vomiting. In the emergency room his blood sugars were initially high but later dropped. He denies any shortness of breath or leg swelling. He feels better this morning denying any nausea or vomiting. He had breakfast. He has normal saline running at 50 mL/h. No abdominal pain no confusion. Patient also has a left upper arm AV fistula which was placed on 01/04/2019 which appears not to be maturing well. He was supposed to see vascular surgery yesterday but canceled due to ill health. Allergies Allergy/AdvReac Type Severity Reaction Status Date / Time shellfish derived Allergy Severe anaphylaxis Verified 01/31/19 11:20 codeine Allergy Intermediate Hives Verified 01/31/19 11:20 promethazine Allergy Intermediate itchy/hives Verified 01/31/19 11:20 Home Medications Home Medications Medication Instructions Recorded Confirmed Type [place] Caps 1 cap PO QAM 12/19/18 01/31/19 History calcium acetate 667 mg PO TIDM MDD 7 CAPSULES/DAY 12/19/18 01/31/19 History cholecalciferol (vitamin D3) 2,000 unit PO QAM 12/23/18 01/31/19 History [Vitamin D3] famotidine 20 mg PO QAM #30 tab 12/23/18 01/31/19 Rx metoclopramide HCl 5 mg PO TID 12/23/18 01/31/19 History sertraline 200 mg PO QAM #60 tab 12/28/18 01/31/19 Rx amlodipine 10 mg tablet 10 mg PO QAM tab 01/06/19 01/31/19 History atorvastatin 10 mg tablet 10 mg PO QAM tab 01/06/19 01/31/19 History prochlorperazine 25 mg rectal 25 mg [place] BID PRN ea 01/06/19 01/31/19 History suppository ondansetron HCl 4 mg tablet 4 mg PO TID PRN 01/12/19 01/31/19 History aprepitant 80 mg PO WK 01/31/19 01/31/19 History bupropion HCl 100 mg PO QAM 01/31/19 01/31/19 History insulin glargine [Chingaglfrancy Mayers 13 units SQ DAILY@0930 01/31/19 01/31/19 History U-100 Insulin] insulin lispro [Rafiq Salgado See Rx Instructions SUBCUT DAILY 01/31/19 01/31/19 History U-100 Insulin] PRN Patient History Medical History Acid reflux Hypertension Type I diabetes mellitus Insulin pump (diagnosed at age 31) Gastroparesis due to DM Depression Anemia Anxiety CAD (coronary artery disease) mild, non-obstructive CAD per 10/2018 cardiac cath ESRD (end stage renal disease) Hemodialysis M,W,F (Follows with Dr. Taylor Higgins; [facility]/[place]). Kidney stones Peripheral neuropathy Retinopathy due to secondary diabetes Surgical History History of appendectomy H/O shoulder surgery RIGHT History of hip surgery LEFT HIP ARTHROSCOPY History of cardiac cath 10/2018= no stents, no obstructive disease (at [facility]) History of lithotripsy Permanent central venous catheter in place Permacath Family History Grandfather Myocardial infarction Grandfather (Maternal) Family history of diabetes mellitus Uncle Myocardial infarction Social History Preferred Language: Lithuanian Communication Ability: Effective Visual Impairment: No Limitations Hearing Ability: Normal Technical Systems Architect Required: No Beliefs That Will Affect Care: None marital status: Legally Current Living Situation: Family current occupational status: unemployed Feels Safe at Home: Yes Smoking Status: Never smoker Tobacco Type: smokeless tobacco ; Second Hand Exposure: No ; Hx Alcohol Use: No Hx Substance Use: No Childhood Exposure to Second-Hand Smoke: Yes Dental Care, Regularly: No Physical Activity Frequency: 1-2 Times per Week Seatbelt Use: always Sunscreen Use: No Review of Systems Review of Systems: All systems reviewed & are unremarkable except as noted in HPI & below Physical Exam Physical Exam: General exam: Appears comfortable, no acute distress HEENT: Pupils are equal and reactive to light Neck: No JVD, neck is supple trachea is midline Respiratory system: Clear breath sounds bilaterally. Gastrointestinal: Abdomen is soft, non distended, non tender, bowel sounds are present CVS: Regular rate and rhythm. No murmurs, rubs or gallops Musculoskeletal: No joint or muscle tenderness Extremities: Non tender, no edema, peripheral pulses are present Neuro: Oriented, no tremors, no focal neurological deficits Skin: No rashes Access: Right tunneled IJ catheter. Results & Data Vital Signs (Past 12 Hours) Vital Signs Temp Pulse Pulse Resp BP Pulse Ox 02/01/19 07:39 36.8 C 82 16 159/91 H 97 02/01/19 07:36 79 02/01/19 05:03 37.0 C 80 18 150/90 H 97 01/31/19 22:58 37.0 C 86 18 80/47 L 95 01/31/19 22:51 91 H Laboratory Results Laboratory Results - last 24 hr 01/31/19 01/31/19 01/31/19 10:04 10:04 10:04 WBC 15.94 H RBC 4.44 L Hgb 14.2 Hct 41.4 L MCV 93.2 MCH 32.0 MCHC 34.3 RDW Std Deviation 58.4 H RDW Coeff of Kami 17.1 H Plt Count 279 MPV 8.4 Immature Gran % (Auto) 0.8 Neut % (Auto) 84.9 Lymph % (Auto) 5.6 [place] % (Auto) 7.9 Eos % (Auto) 0.4 Baso % (Auto) 0.4 Immature Gran # (Auto) 0.13 H Neut # (Auto) 13.52 H Lymph # (Auto) 0.90 L [place] # (Auto) 1.26 H Eos # (Auto) 0.06 Baso # (Auto) 0.07 PT 10.2 INR 1.0 Sodium 132 L Potassium 3.8 Chloride 95 L Carbon Dioxide 25 Anion Gap 12.0 H BUN 23 H Creatinine 2.99 H Est Cr Clr Drug Dosing 18.8 Est GFR ( Amer) 27.3 Est GFR (Non-Af Amer) 23.6 BUN/Creatinine Ratio 7.7 L Glucose 238 H POC Glucose Calcium 9.0 Phosphorus Magnesium Total Bilirubin 0.6 AST 21 ALT 24 Alkaline Phosphatase 117 Total Protein 7.2 Albumin 3.5 Globulin 3.7 Albumin/Globulin Ratio 0.9 Lipase 195 01/31/19 01/31/19 01/31/19 19:06 19:07 20:33 WBC RBC Hgb Hct MCV MCH MCHC RDW Std Deviation RDW Coeff of Kami Plt Count MPV Immature Gran % (Auto) Neut % (Auto) Lymph % (Auto) [place] % (Auto) Eos % (Auto) Baso % (Auto) Immature Gran # (Auto) Neut # (Auto) Lymph # (Auto) [place] # (Auto) Eos # (Auto) Baso # (Auto) PT INR Sodium Potassium Chloride Carbon Dioxide Anion Gap BUN Creatinine Est Cr Clr Drug Dosing Est GFR ( Amer) Est GFR (Non-Af Amer) BUN/Creatinine Ratio Glucose POC Glucose 414 H* 427 H* 394 H* Calcium Phosphorus Magnesium Total Bilirubin AST ALT Alkaline Phosphatase Total Protein Albumin Globulin Albumin/Globulin Ratio Lipase 01/31/19 01/31/19 01/31/19 20:37 20:57 21:33 WBC RBC Hgb Hct MCV MCH MCHC RDW Std Deviation RDW Coeff of Kami Plt Count MPV Immature Gran % (Auto) Neut % (Auto) Lymph % (Auto) [place] % (Auto) Eos % (Auto) Baso % (Auto) Immature Gran # (Auto) Neut # (Auto) Lymph # (Auto) [place] # (Auto) Eos # (Auto) Baso # (Auto) PT INR Sodium Potassium Chloride Carbon Dioxide Anion Gap BUN Creatinine Est Cr Clr Drug Dosing Est GFR ( Amer) Est GFR (Non-Af Amer) BUN/Creatinine Ratio Glucose POC Glucose 399 H* 357 H* 333 H* Calcium Phosphorus Magnesium Total Bilirubin AST ALT Alkaline Phosphatase Total Protein Albumin Globulin Albumin/Globulin Ratio Lipase 01/31/19 01/31/19 02/01/19 22:12 23:33 06:50 WBC 11.71 H RBC 3.92 L Hgb 12.3 L Hct 37.3 L MCV 95.2 MCH 31.4 MCHC 33.0 RDW Std Deviation 61.9 H RDW Coeff of Kami 18.0 H Plt Count 292 MPV 8.9 Immature Gran % (Auto) 0.5 Neut % (Auto) 61.8 Lymph % (Auto) 22.4 [place] % (Auto) 14.2 Eos % (Auto) 0.5 Baso % (Auto) 0.6 Immature Gran # (Auto) 0.06 H Neut # (Auto) 7.24 H Lymph # (Auto) 2.62 [place] # (Auto) 1.66 H Eos # (Auto) 0.06 Baso # (Auto) 0.07 PT INR Sodium Potassium Chloride Carbon Dioxide Anion Gap BUN Creatinine Est Cr Clr Drug Dosing Est GFR ( Amer) Est GFR (Non-Af Amer) BUN/Creatinine Ratio Glucose POC Glucose 281 H 182 H Calcium Phosphorus Magnesium Total Bilirubin AST ALT Alkaline Phosphatase Total Protein Albumin Globulin Albumin/Globulin Ratio Lipase 02/01/19 02/01/19 02/01/19 06:50 07:20 07:22 WBC RBC Hgb Hct MCV MCH MCHC RDW Std Deviation RDW Coeff of Kami Plt Count MPV Immature Gran % (Auto) Neut % (Auto) Lymph % (Auto) [place] % (Auto) Eos % (Auto) Baso % (Auto) Immature Gran # (Auto) Neut # (Auto) Lymph # (Auto) [place] # (Auto) Eos # (Auto) Baso # (Auto) PT INR Sodium 134 L Potassium 4.4 D Chloride 99 Carbon Dioxide 26 Anion Gap 9.0 BUN 43 H D Creatinine 4.77 H* D Est Cr Clr Drug Dosing 15.7 Est GFR ( Amer) 15.5 Est GFR (Non-Af Amer) 13.4 BUN/Creatinine Ratio 9.0 L Glucose 66 L POC Glucose 60 L* 58 L* Calcium 8.1 L Phosphorus 5.7 H Magnesium 2.3 Total Bilirubin AST ALT Alkaline Phosphatase Total Protein Albumin Globulin Albumin/Globulin Ratio Lipase 02/01/19 07:52 WBC RBC Hgb Hct MCV MCH MCHC RDW Std Deviation RDW Coeff of Kami Plt Count MPV Immature Gran % (Auto) Neut % (Auto) Lymph % (Auto) [place] % (Auto) Eos % (Auto) Baso % (Auto) Immature Gran # (Auto) Neut # (Auto) Lymph # (Auto) [place] # (Auto) Eos # (Auto) Baso # (Auto) PT INR Sodium Potassium Chloride Carbon Dioxide Anion Gap BUN Creatinine Est Cr Clr Drug Dosing Est GFR ( Amer) Est GFR (Non-Af Amer) BUN/Creatinine Ratio Glucose POC Glucose 101 H Calcium Phosphorus Magnesium Total Bilirubin AST ALT Alkaline Phosphatase Total Protein Albumin Globulin Albumin/Globulin Ratio Lipase (1) Hypertension Hypertension type: unspecified Qualified Code(s): I10 - Essential (primary) hypertension (2) Vomiting Nausea presence: with nausea Vomiting Intractability: unspecified Vomiting type: unspecified Qualified Code(s): R11.2 - Nausea with vomiting, unspecified
[2019-02-01] MEDS: NEPHROCAPS PO SCH (10:44)
[2019-02-01] MEDS: BuPROPion SR 100 MG TABCR PO SCH (10:44)
[2019-02-01] MEDS: SERTRALINE HCL 100 MG TABLET PO SCH (10:44)
[2019-02-01] MEDS: FAMOTIDINE 20 MG TAB PO SCH (10:44)
[2019-02-01] MEDS: AMLODIPINE BESYLATE 5 MG TAB PO SCH (10:44)
[2019-02-01] MEDS ORDERED: PHARMACY GLYCEMIC MGMT CONSULT PRN (12:10)
--- NOTE | 2019-02-01 15:08 | Pharmacy Report ---
Pharmacy Glycemic Short Note 2 - Date of Service February 01, 2019 - Glycemic Short BSG Results (Last 24 hours): 01/31/19 01/31/19 01/31/19 19:06 19:07 20:33 Glucose POC Glucose 414 H* 427 H* 394 H* 01/31/19 01/31/19 01/31/19 20:37 20:57 21:33 Glucose POC Glucose 399 H* 357 H* 333 H* 01/31/19 01/31/19 02/01/19 22:12 23:33 06:50 Glucose 66 L POC Glucose 281 H 182 H 02/01/19 02/01/19 02/01/19 07:20 07:22 07:52 Glucose POC Glucose 60 L* 58 L* 101 H 02/01/19 11:23 Glucose POC Glucose 181 H OUTPATIENT ANTIDIABETIC REGIMEN: * Basaglar 13 units daily * Admelog carb ratio 1 unit per 10gm CHO * A1c = ? ASSESSMENT: * Brittle type 1 diabetic admitted for NV, gastroparesis possible viral gastroenteritis * BSGs in the 400's on admission, however BSGs dropped into the 58-60 range this AM. Upon review of insulin doses, he was given two 10 unit doses of Novolog in close proximity last evening along with two 5 unit doses of Lantus. I'm m ore inclined to believe the low BSG observed this AM was due to excessive Novolog at bedtime in the setting of poor PO intake. * Pharmacy has followed this patient on multiple past admissions. Will utilize data gathered from prior admits to drive treatment choices. * Given his uncertain insulin needs and PO intake, will give lesser Lantus doses at this time than prior admits and utilize more correctional insulin PLAN FOR INPATIENT GLYCEMIC CONTROL: * Basal insulin * Lantus 5 units SQ x 1 this evening * Starting 02/02, Lantus 7 units Q AM * Bolus insulin * NovoLog per scale ACHS or Q6hrs while NPO, will also utilize checks at 0000 + 0400 tonight * Goal Range: Low 120 mg/dL - High 140 mg/dL * Correction Factor: 30 mg/dL/unit (40mg/dL/unit for overnight checks) * Nutritional / Prandial insulin per carb ratio of 1 unit per 9 grams CHO consumed PLAN FOR DISCHARGE: * to be determined
--- NOTE | 2019-02-01 19:33 | Hospitalist Progress Note ---
Date of Service February 01, 2019 Assessment & Plan (1) Nausea: Slowly improving Glycemic control per pharmacy decrease the dose of Lantus from 10-5. Continue Accu-Cheks before meals and at bedtime. Hx of gastroparesis vs acute GE seem most likely PRN meds CTAP as noted, US neg for thrombosis CBC, PRP WNL for pt UA pending collection, possible cystitis noted on CTAP (2) Hypertension: Missed AM meds today Monitor metoprolol 5mg IV x1 (3) End stage renal disease on dialysis: Completed session today M/W/F HD Follows with [facility], c/s pending (4) Dyslipidemia: Holding given above (5) Gastroparesis: Meds as at home (6) Depression: continue home meds (7) Anxiety: continue home meds (8) DM type 1 (diabetes mellitus, type 1): SSI PRN Holding home regimen given inability to tolerate PO (9) DVT prophylaxis: SCDs Subjective Patient seen and examined at the bedside. He had hemodialysis yesterday(Thursday and Thursday) patient said his nausea is somewhat improving but his sugar is poorly controlled and he was hypoglycemic to 60. Patient he can tolerate clears. Patient denies fever chills chest pain shortness of breath abdominal pain frequency urgency. Review of Systems Review of Systems: All systems reviewed & are unremarkable except as noted in HPI & below Physical Exam Constitutional: WD/WN, vitals as above Eyes: PERRL, conjunctivae normal, anicteric sclerae ENMT: external ear and nose normal, oropharynx normal Neck: trachea midline, no thyromegaly Respiratory: normal respiratory effort, lungs clear to auscultation Cardiovascular: RRR, no murmur, no edema Chest (Breasts): normal inspection/palpation of breasts Gastrointestinal (Abdomen): normal bowel sounds, soft, nontender, no hepatosplenomegaly Musculoskeletal: no cyanosis or clubbing, extremities motor strength 5/5 Skin: no rashes, warm and dry Neurologic: patellar DTR's 2+ bilat, sensation intact Psychiatric: A+Ox3, euthymic affect Results & Data Vital Signs (Past 12 Hours) Vital Signs Temp Pulse Pulse Resp BP Pulse Ox 02/01/19 18:25 37.0 C 95 H 18 137/80 97 02/01/19 15:38 37.1 C 85 18 166/87 H 97 02/01/19 11:35 36.7 C 86 16 174/93 H 98 02/01/19 07:39 36.8 C 82 16 159/91 H 97 02/01/19 07:36 79 PG Care Time/CCT Total # of Minutes Spent Total Time Spent with Patient: Total time spent is greater than 50% in coordination of care (as documented) at patient's floor/unit and/or counseling patient: (1) Hypertension Hypertension type: unspecified Qualified Code(s): I10 - Essential (primary) hypertension (2) Depression Depression Type: major depressive disorder Major depression recurrence: unspecified whether recurrent Active/Remission status: currently active Major depression episode severity: severe Psychotic features: without psychotic features Qualified Code(s): F32.2 - Major depressive disorder, single episode, severe without psychotic features
[2019-02-01] MEDS ORDERED: INSULIN GLARGINE SOLOSTAR 100 UNITS/ML 3 ML PEN SC SCH (21:00)
[2019-02-01] MEDS ORDERED: INSULIN GLARGINE SOLOSTAR 100 UNITS/ML 3 ML PEN SC ONE (21:00)
[2019-02-01] MEDS: PROCHLORPERAZINE 5 MG in SYRINGE 4 ML IV PRN (22:24)
[2019-02-02] MEDS: INSULIN ASPART 100 UNITS/ML 3 ML PEN SC SCH ×6 (00:09→21:06)
[2019-02-02] MEDS ORDERED: LORazepam 0.5 MG/1 ML VIAL IV ONE ×2 (00:15→23:45)
[2019-02-02] MEDS: PROCHLORPERAZINE 5 MG in SYRINGE 4 ML IV PRN ×2 (03:56→18:58)
[2019-02-02 06:39] LABS: Basophils # (auto) 0.03 K/uL (0-0.2); Basophils % (auto) 0.2 %; Hematocrit (blood only) 37.5 % (42-52); Hemoglobin 12.7 g/dL (14.0-18.0); Immature Granulocytes # (auto) 0.09 K/uL (0.00-0.02); Immature Granulocytes % (auto) 0.6 %; Lymphocytes # (auto) 1.29 K/uL (1.2-3.4); Lymphocytes % (auto) 8.7 %; Mean Corpuscular Hemoglobin 31.4 pg (25-34); Mean Corpuscular Hgb Conc 33.9 g/dL (32-36); Mean Corpuscular Volume 92.6 fL (80-100); Mean Platelet Volume 8.6 fL (7.4-10.4); Monocytes # (auto) 1.02 K/uL (0.11-0.59); Monocytes % (auto) 6.9 %; Neutrophils # (auto) 12.34 K/uL (1.4-6.5); Neutrophils % (auto) 83.6 %; Platelet Count 296 K/uL (130-400); RDW Standard Deviation 57.9 fL (36.4-46.3); Red Blood Count 4.05 M/uL (4.7-6.1); White Blood Count 14.77 K/uL (4.8-10.8)
[2019-02-02 07:33] LABS: Albumin Globulin Ratio 1.1 (0.9-2); Albumin Level 3.7 gm/dl (3.4-5.0); BUN Creatinine Ratio 8.9 (10-20); Bilirubin,Total 0.5 mg/dl (0.2-1); Calcium 8.1 mg/dl (8.5-10.1); Creatinine Clr Calc Pharmacy 11.5 ml/min; Est GFR (African American) 10.6; Est GFR (Non-African American) 9.1; Globulin 3.5 gm/dl (2.5-4.0); Potassium 4.8 mmol/L (3.5-5.1); Total Protein 7.2 gm/dl (6.4-8.2)
[2019-02-02] MEDS: METOCLOPRAMIDE HCL 5 MG TABLET PO SCH ×3 (08:00→18:52)
[2019-02-02] MEDS: FAMOTIDINE 20 MG TAB PO SCH (08:54)
[2019-02-02] MEDS: AMLODIPINE BESYLATE 5 MG TAB PO SCH (08:54)
[2019-02-02] MEDS: CALCIUM ACETATE 667 MG CAP PO SCH ×3 (08:54→18:52)
[2019-02-02] MEDS: BuPROPion SR 100 MG TABCR PO SCH (08:55)
[2019-02-02] MEDS: NEPHROCAPS PO SCH (08:55)
[2019-02-02] MEDS ORDERED: SODIUM CHLORIDE 0.9% 1000ML 1,000 ML IV PRN (08:56)
[2019-02-02] MEDS ORDERED: HEPARIN SOD (PORCINE) 1000 UNIT/ML 10 ML VIAL IV ONE (08:56)
[2019-02-02] MEDS: SERTRALINE HCL 100 MG TABLET PO SCH (08:56)
[2019-02-02] MEDS ORDERED: INSULIN GLARGINE SOLOSTAR 100 UNITS/ML 3 ML PEN SC SCH ×2 (09:00→16:30)
[2019-02-02] MEDS: ONDANSETRON INJ 2 MG/ML 2 ML VIAL IV PRN ×2 (10:44→21:54)
--- NOTE | 2019-02-02 12:58 | Nephrology Progress Note ---
Date of Service February 02, 2019 Assessment & Plan (1) End stage renal disease on dialysis: Patient with ESRD due to diabetic nephropathy on dialysis Thursday using right tunneled IJ catheter. He is last dialysis was yesterday for 4 hours. His electrolytes are stable with no signs of volume overload. We will plan dialysis today02/02/2019 for 4 hours to get UF 1 L. (2) Hypertension: Blood pressure is above target partly due to nausea and vomiting, unable to tolerate p.o. meds. His GI symptoms are improving. Continue current medications for blood pressure. (3) DM type 1 (diabetes mellitus, type 1): Patient with type I DM and fluctuating blood sugars. He is on insulin per primary team. Recommend stopping IV fluids as he is a dialysis patient. (4) Vomiting: Patient with a history of gastroparesis. Continue conservative management per primary care team with anti emetics. Will avoid aggressive ultrafiltration at dialysis. Subjective Patient seen in follow up for ESRD complicated by vomiting. he still has nausea and vomiting today. No SOB. No leg swelling. Review of Systems Review of Systems: All systems reviewed & are unremarkable except as noted in HPI & below Physical Exam Physical Exam: General exam: Appears comfortable, no acute distress HEENT: Pupils are equal and reactive to light Neck: No JVD, neck is supple trachea is midline Respiratory system: Clear breath sounds bilaterally. Gastrointestinal: Abdomen is soft, non distended, non tender, bowel sounds are present CVS: Regular rate and rhythm. No murmurs, rubs or gallops Musculoskeletal: No joint or muscle tenderness Extremities: Non tender, no edema, peripheral pulses are present Neuro: Oriented, no tremors, no focal neurological deficits Skin: No rashes Access: right IJ Results & Data Vital Signs (Past 12 Hours) Vital Signs Temp Pulse Pulse Resp BP Pulse Ox 02/02/19 11:30 36.6 C 97 H 18 168/92 H 96 02/02/19 08:15 180/87 H 02/02/19 07:24 91 H 02/02/19 07:05 36.6 C 90 18 194/104 H 98 02/02/19 03:00 36.8 C 92 H 22 131/90 99 Laboratory Results Laboratory Results - last 24 hr 02/01/19 02/01/19 02/01/19 16:59 20:55 23:57 WBC RBC Hgb Hct MCV MCH MCHC RDW Std Deviation RDW Coeff of Kami Plt Count MPV Immature Gran % (Auto) Neut % (Auto) Lymph % (Auto) [place] % (Auto) Eos % (Auto) Baso % (Auto) Immature Gran # (Auto) Neut # (Auto) Lymph # (Auto) [place] # (Auto) Eos # (Auto) Baso # (Auto) Sodium Potassium Chloride Carbon Dioxide Anion Gap BUN Creatinine Est Cr Clr Drug Dosing Est GFR ( Amer) Est GFR (Non-Af Amer) BUN/Creatinine Ratio Glucose POC Glucose 392 H* 297 H 135 H Calcium Total Bilirubin AST ALT Alkaline Phosphatase Total Protein Albumin Globulin Albumin/Globulin Ratio Specimen Hemolysis 02/02/19 02/02/19 02/02/19 03:48 06:28 06:28 WBC 14.77 H RBC 4.05 L Hgb 12.7 L Hct 37.5 L MCV 92.6 MCH 31.4 MCHC 33.9 RDW Std Deviation 57.9 H RDW Coeff of Kami 17.0 H Plt Count 296 MPV 8.6 Immature Gran % (Auto) 0.6 Neut % (Auto) 83.6 Lymph % (Auto) 8.7 [place] % (Auto) 6.9 Eos % (Auto) 0.0 Baso % (Auto) 0.2 Immature Gran # (Auto) 0.09 H Neut # (Auto) 12.34 H Lymph # (Auto) 1.29 [place] # (Auto) 1.02 H Eos # (Auto) 0.00 Baso # (Auto) 0.03 Sodium 131 L Potassium 4.8 Chloride 94 L Carbon Dioxide 21 Anion Gap 16.0 H BUN 58 H Creatinine 6.56 H* D Est Cr Clr Drug Dosing 11.5 Est GFR ( Amer) 10.6 Est GFR (Non-Af Amer) 9.1 BUN/Creatinine Ratio 8.9 L Glucose 211 H POC Glucose 250 H Calcium 8.1 L Total Bilirubin 0.5 AST 23 ALT 24 Alkaline Phosphatase 106 Total Protein 7.2 Albumin 3.7 Globulin 3.5 Albumin/Globulin Ratio 1.1 Specimen Hemolysis 02/02/19 02/02/19 07:29 11:38 WBC RBC Hgb Hct MCV MCH MCHC RDW Std Deviation RDW Coeff of Kami Plt Count MPV Immature Gran % (Auto) Neut % (Auto) Lymph % (Auto) [place] % (Auto) Eos % (Auto) Baso % (Auto) Immature Gran # (Auto) Neut # (Auto) Lymph # (Auto) [place] # (Auto) Eos # (Auto) Baso # (Auto) Sodium Potassium Chloride Carbon Dioxide Anion Gap BUN Creatinine Est Cr Clr Drug Dosing Est GFR ( Amer) Est GFR (Non-Af Amer) BUN/Creatinine Ratio Glucose POC Glucose 231 H 294 H Calcium Total Bilirubin AST ALT Alkaline Phosphatase Total Protein Albumin Globulin Albumin/Globulin Ratio Specimen Hemolysis (1) Hypertension Hypertension type: unspecified Qualified Code(s): I10 - Essential (primary) hypertension (2) Vomiting Nausea presence: with nausea Vomiting Intractability: unspecified Vomiting type: unspecified Qualified Code(s): R11.2 - Nausea with vomiting, unspecified
[2019-02-02] MEDS: HEPARIN SOD (PORCINE) 1000 UNIT/ML 10 ML VIAL IV SCH (14:28)
--- NOTE | 2019-02-02 14:53 | Pharmacy Report ---
Glycemic Control Progress Note - Date of Service February 02, 2019 - Scope Glycemic Pharmacist consulted for glycemic control to write orders per [facility] inpatient glycemic control protocol. - Objective Accuchecks BSG(last 24 hours):: 02/01/19 02/01/19 02/01/19 16:59 20:55 23:57 Glucose POC Glucose 392 H* 297 H 135 H 02/02/19 02/02/19 02/02/19 03:48 06:28 07:29 Glucose 211 H POC Glucose 250 H 231 H 02/02/19 11:38 Glucose POC Glucose 294 H - Recent Pertinent Medications The patient is currently receiving: * Basal insulin: Lantus 7 units every 24 hours * Correctional Insulin: Novolog Correction per scale ACHS Goal Range: Low 120 mg/dL - High 140 mg/dL Correction Factor: 30 mg/dL/unit * Prandial insulin: Per carb ratio of 1 unit per 9 grams CHO consumed - Outpatient Anti-Diabetic Meds BASALGAR 13 UNITS DAILY PLUS ADEMLOG 1 UNIT PER 10 GRAMS OF CARBOHYDRATES - Assessment & Plan ASSESSMENT: * See progress note from 02/01/19 for more background info, in short: * Pt receiving SQ basal bolus insulin regimen for hyperglycemia secondary to baseline DM (outpatient regimen on hold); DECREASED PO INTAKE WITH GASTROPARESIS. * Patient is currently receiving an average of 33 units of insulin per day * 10 units of basal insulin * 23 units of prandial/correctional insulin * BSGs ranging 58 - 392 mg/dl over the past 24hrs * Changes needed to insulin regimen: * AM Fasting BSG = 231 mg/dl. This is slightly above goal range for patient based on inpatient targets and co-morbidities. The patient required an additional 3 units overnight. Will add this to the patient's total dose since the patient continues in the high 200s. Will give additional 3 units at dinner time today and start 10 units daily tomorrow. * Post-prandial BSGs are controlled via a regimen utilized in the past. Will not adjust at this point. Will increase goal range so patient does not overcorrect. * Total daily dose = ? units. PLAN FOR INPATIENT GLYCEMIC CONTROL: * Starting Lantus 3 units SQ with dinner and then 10 units SQ daily starting tomorrow * Continuing correction factor of 30 mg/dl/unit * Continuing carb ratio of 1 unit per 9 grams CHO consumed * Continuing goal range of Low 120 mg/dL - High 180 mg/dL RECOMMENDATIONS FOR DISCHARGE: * continue to follow-up with outpatient endo. * Please note that the plan above was derived based on current level of insulin resistance and hospital stress. These recommendations are appropriate for inpatient admission only. Plan of care upon discharge will need to be reassessed to avoid potential outpatient hypo/hyperglycemia. Thank you.
--- NOTE | 2019-02-02 20:49 | Hospitalist Progress Note ---
Date of Service February 02, 2019 Assessment & Plan (1) Nausea: had emesis this am but overall feels much better than at admission. he states that during this admission his GI symptoms have been much less than the prior admission. after d/c from last hospital stay he did f/u with motility clinic in [place]. they encouraged him to go back on erythromycin but after attempting such it gave him side effects and thus he stopped it. he remains on reglan 5mg AC advance diet to full liquids if he has good night tonight and tolerates fulls then can d/c home tomorrow patient DOES admit that anxiety plays large role in his GI symptoms (2) Gastroparesis: as above in "nausea" (3) Hypertension: cont amlodipine if he needs additional BP control then add beta deidre (4) End stage renal disease on dialysis: s/p HD today schedule - M/W/F appreciate [facility] nephrology assistance (5) Dyslipidemia: usually on statin resume at d/c (6) Depression: continue home meds including zoloft (and wellbutrin??) latter not on med list - need to confirm dose (7) Anxiety: continue home meds this is improved from prior (8) DM type 1 (diabetes mellitus, type 1): appreciate pharmacy assistance resume pump at d/c control improved today (9) DVT prophylaxis: SCDs hopefully home tomorrow if he has good night Subjective had emesis this am - liquid only - about 0600. admits he felt anxious and thinks that is what caused the emesis. none since then. tolerating clears. tolerated HD today. stated "this time around has been much better than the last one". reports seeing a new counselor and "that is going really well" admits his depression has improved recently placed on wellbutrin and "that has helped alot" "I'm actually smiling now!" Review of Systems Constitutional: no fever Respiratory: no dyspnea Cardiovascular: no chest pain Gastrointestinal: + nausea and + vomiting; no abdominal pain, no bloating, no constipation and no diarrhea/loose stools Physical Exam Constitutional: no acute distress affect is the best I've seen in 12+ months ENMT: external ear and nose normal, oropharynx normal Respiratory: normal respiratory effort, lungs clear to auscultation Cardiovascular: Rate/Rhythm: regular rate and regular rhythm Heart Sounds: normal S1 and normal S2; no murmur Vessels: posterior tibial pulses present and dorsalis pedis pulses present; no JVD Extremities: no edema Chest (Breasts): Additional Comments: HD catheter right upper chest clean Gastrointestinal (Abdomen): normal bowel sounds, soft, nontender, no hepatosplenomegaly Skin: no rashes, warm and dry Psychiatric: Orientation: alert and oriented x 3 Affect: no depressed affect and no anxious affect Results & Data Vital Signs (Past 12 Hours) Vital Signs Temp Pulse Pulse Pulse Resp BP BP 02/02/19 19:08 36.6 C 100 H 18 190/92 H 02/02/19 17:57 36.8 C 92 H 20 174/88 H 02/02/19 17:40 36.9 C 91 H 163/77 H 02/02/19 17:20 88 171/93 H 02/02/19 17:00 90 170/93 H 02/02/19 16:40 91 H 163/92 H 02/02/19 16:20 92 H 169/96 H 02/02/19 16:00 93 H 160/92 H 02/02/19 15:40 94 H 170/92 H 02/02/19 15:20 92 H 118/77 02/02/19 15:00 90 100/60 02/02/19 14:45 89 100/59 L 02/02/19 14:40 89 74/46 L 02/02/19 14:20 93 H 86/52 L 02/02/19 14:00 91 H 108/66 02/02/19 13:40 93 H 160/88 H 02/02/19 13:32 36.9 C 97 H 02/02/19 11:30 36.6 C 97 H 18 168/92 H Pulse Ox 02/02/19 19:08 97 02/02/19 17:57 96 02/02/19 17:40 02/02/19 17:20 02/02/19 17:00 02/02/19 16:40 02/02/19 16:20 02/02/19 16:00 02/02/19 15:40 02/02/19 15:20 02/02/19 15:00 02/02/19 14:45 02/02/19 14:40 02/02/19 14:20 02/02/19 14:00 02/02/19 13:40 02/02/19 13:32 02/02/19 11:30 96 Laboratory Results Laboratory Results - last 24 hr 02/01/19 02/01/19 02/02/19 20:55 23:57 03:48 WBC RBC Hgb Hct MCV MCH MCHC RDW Std Deviation RDW Coeff of Kami Plt Count MPV Immature Gran % (Auto) Neut % (Auto) Lymph % (Auto) [place] % (Auto) Eos % (Auto) Baso % (Auto) Immature Gran # (Auto) Neut # (Auto) Lymph # (Auto) [place] # (Auto) Eos # (Auto) Baso # (Auto) Sodium Potassium Chloride Carbon Dioxide Anion Gap BUN Creatinine Est Cr Clr Drug Dosing Est GFR ( Amer) Est GFR (Non-Af Amer) BUN/Creatinine Ratio Glucose POC Glucose 297 H 135 H 250 H Calcium Total Bilirubin AST ALT Alkaline Phosphatase Total Protein Albumin Globulin Albumin/Globulin Ratio Specimen Hemolysis 02/02/19 02/02/19 02/02/19 06:28 06:28 07:29 WBC 14.77 H RBC 4.05 L Hgb 12.7 L Hct 37.5 L MCV 92.6 MCH 31.4 MCHC 33.9 RDW Std Deviation 57.9 H RDW Coeff of Kami 17.0 H Plt Count 296 MPV 8.6 Immature Gran % (Auto) 0.6 Neut % (Auto) 83.6 Lymph % (Auto) 8.7 [place] % (Auto) 6.9 Eos % (Auto) 0.0 Baso % (Auto) 0.2 Immature Gran # (Auto) 0.09 H Neut # (Auto) 12.34 H Lymph # (Auto) 1.29 [place] # (Auto) 1.02 H Eos # (Auto) 0.00 Baso # (Auto) 0.03 Sodium 131 L Potassium 4.8 Chloride 94 L Carbon Dioxide 21 Anion Gap 16.0 H BUN 58 H Creatinine 6.56 H* D Est Cr Clr Drug Dosing 11.5 Est GFR ( Amer) 10.6 Est GFR (Non-Af Amer) 9.1 BUN/Creatinine Ratio 8.9 L Glucose 211 H POC Glucose 231 H Calcium 8.1 L Total Bilirubin 0.5 AST 23 ALT 24 Alkaline Phosphatase 106 Total Protein 7.2 Albumin 3.7 Globulin 3.5 Albumin/Globulin Ratio 1.1 Specimen Hemolysis 02/02/19 02/02/19 02/02/19 11:38 18:30 19:39 WBC RBC Hgb Hct MCV MCH MCHC RDW Std Deviation RDW Coeff of Kami Plt Count MPV Immature Gran % (Auto) Neut % (Auto) Lymph % (Auto) [place] % (Auto) Eos % (Auto) Baso % (Auto) Immature Gran # (Auto) Neut # (Auto) Lymph # (Auto) [place] # (Auto) Eos # (Auto) Baso # (Auto) Sodium Potassium Chloride Carbon Dioxide Anion Gap BUN Creatinine Est Cr Clr Drug Dosing Est GFR ( Amer) Est GFR (Non-Af Amer) BUN/Creatinine Ratio Glucose POC Glucose 294 H 119 H 175 H Calcium Total Bilirubin AST ALT Alkaline Phosphatase Total Protein Albumin Globulin Albumin/Globulin Ratio Specimen Hemolysis PG Care Time/CCT Total # of Minutes Spent Total Time Spent with Patient: Total time spent is greater than 50% in coordination of care (as documented) at patient's floor/unit and/or counseling patient: (1) Hypertension Hypertension type: unspecified Qualified Code(s): I10 - Essential (primary) hypertension (2) Depression Depression Type: major depressive disorder Major depression recurrence: unspecified whether recurrent Active/Remission status: currently active Major depression episode severity: severe Psychotic features: without psychotic features Qualified Code(s): F32.2 - Major depressive disorder, single episode, severe without psychotic features (3) DM type 1 (diabetes mellitus, type 1) Diabetes mellitus complication status: with kidney complications Diabetes mellitus complication detail: with chronic kidney disease Chronic kidney disease stage: on chronic dialysis Qualified Code(s): E10.22 - Type 1 diabetes mellitus with diabetic chronic kidney disease; N18.6 - End stage renal disease; Z99.2 - Dependence on renal dialysis
[2019-02-03] MEDS: PROCHLORPERAZINE 5 MG in SYRINGE 4 ML IV PRN ×2 (05:30→14:20)
[2019-02-03 07:05] LABS: Basophils # (auto) 0.03 K/uL (0-0.2); Basophils % (auto) 0.3 %; Eosinophils # (auto) 0.02 K/uL (0-0.5); Eosinophils % (auto) 0.2 %; Hematocrit (blood only) 37.8 % (42-52); Hemoglobin 12.3 g/dL (14.0-18.0); Immature Granulocytes # (auto) 0.06 K/uL (0.00-0.02); Immature Granulocytes % (auto) 0.6 %; Lymphocytes # (auto) 0.94 K/uL (1.2-3.4); Lymphocytes % (auto) 8.8 %; Mean Corpuscular Hemoglobin 31.3 pg (25-34); Mean Corpuscular Hgb Conc 32.5 g/dL (32-36); Mean Corpuscular Volume 96.2 fL (80-100); Mean Platelet Volume 9.2 fL (7.4-10.4); Monocytes # (auto) 0.88 K/uL (0.11-0.59); Monocytes % (auto) 8.3 %; Neutrophils # (auto) 8.71 K/uL (1.4-6.5); Neutrophils % (auto) 81.8 %; Platelet Count 210 K/uL (130-400); RDW Coefficient of Variation 16.9 % (11.5-14.5); RDW Standard Deviation 59.6 fL (36.4-46.3); Red Blood Count 3.93 M/uL (4.7-6.1); White Blood Count 10.64 K/uL (4.8-10.8)
[2019-02-03 07:56] LABS: Albumin Globulin Ratio 1.1 (0.9-2); Albumin Level 3.4 gm/dl (3.4-5.0); BUN Creatinine Ratio 7.6 (10-20); Bilirubin,Total 0.4 mg/dl (0.2-1); Calcium 8.3 mg/dl (8.5-10.1); Creatinine Clr Calc Pharmacy 16.6 ml/min; Est GFR (African American) 16.3; Est GFR (Non-African American) 14.1; Globulin 3.2 gm/dl (2.5-4.0); Potassium 4.7 mmol/L (3.5-5.1); Total Protein 6.6 gm/dl (6.4-8.2)
[2019-02-03] MEDS ORDERED: INSULIN HUMAN REGULAR PER UNIT 10 UNITS in SYRINGE 9.9 ML IV ONE (08:00)
[2019-02-03] MEDS: ONDANSETRON INJ 2 MG/ML 2 ML VIAL IV PRN (08:20)
[2019-02-03] MEDS: METOCLOPRAMIDE HCL 5 MG TABLET PO SCH ×3 (08:21→16:30)
[2019-02-03] MEDS: INSULIN ASPART 100 UNITS/ML 3 ML PEN SC SCH ×2 (08:26→12:25)
[2019-02-03] MEDS ORDERED: INSULIN GLARGINE SOLOSTAR 100 UNITS/ML 3 ML PEN SC SCH (09:00)
[2019-02-03] MEDS: CALCIUM ACETATE 667 MG CAP PO SCH ×3 (10:07→17:00)
[2019-02-03] MEDS: NEPHROCAPS PO SCH (10:07)
[2019-02-03] MEDS: BuPROPion SR 100 MG TABCR PO SCH (10:07)
[2019-02-03] MEDS: AMLODIPINE BESYLATE 5 MG TAB PO SCH ×2 (10:07→10:34)
[2019-02-03] MEDS: FAMOTIDINE 20 MG TAB PO SCH (10:07)
[2019-02-03] MEDS: SERTRALINE HCL 100 MG TABLET PO SCH (10:08)
[2019-02-03] MEDS: CARVEDILOL 3.125 MG TAB PO SCH ×2 (10:34→20:33)
--- NOTE | 2019-02-03 13:01 | Pharmacy Report ---
Pharmacy Glycemic Short Note 2 - Date of Service February 03, 2019 - Glycemic Short BSG Results (Last 24 hours): 02/02/19 02/02/19 02/03/19 18:30 19:39 06:30 Glucose 402 H* POC Glucose 119 H 175 H 02/03/19 02/03/19 02/03/19 07:37 07:39 11:40 Glucose POC Glucose 428 H* 395 H* 230 H OUTPATIENT ANTIDIABETIC REGIMEN: * Basaglar 13 units daily * Admelog carb ratio 1 unit per 10gm CHO * A1c = ? ASSESSMENT: 02/03/19: * Mr De Los Santos has been receiving ~20-30 units of insulin per day, with very labile BSGs. * He struggles with significant nausea/vomiting with gastroparesis, so his dietary intake is often very unpredictable. * Managing patient on basal/bolus SQ insulin has not been especially successful during his admission history. Suspect that this is largely due to the intermittent/unpredictable intake of juices, snacks, etc when patient is feeling able to eat. This slow, intermittent carb intake leads to insufficient carb coverage throughout the day. * In an effort to provide a small amount of "carb coverage" throughout the day, will transition from traditional basal insulin to a q6h regimen with Novolin- R. This should provide patient with basal insulin, but also some faster ac ting insulin to aid with carb coverage. Patient will also receive correctional insulin for BSGs above goal range. Will trial this new regimen and adjust frequently! 02/01/19 * Brittle type 1 diabetic admitted for NV, gastroparesis possible viral gastroenteritis * BSGs in the 400's on admission, however BSGs dropped into the 58-60 range this AM. Upon review of insulin doses, he was given two 10 unit doses of Novolog in close proximity last evening along with two 5 unit doses of Lantus. I'm more inclined to believe the low BSG observed this AM was due to excessive Novolog at bedtime in the setting of poor PO intake. * Pharmacy has followed this patient on multiple past admissions. Will utilize data gathered from prior admits to drive treatment choices. * Given his uncertain insulin needs and PO intake, will give lesser Lantus doses at this time than prior admits and utilize more correctional insulin PLAN FOR INPATIENT GLYCEMIC CONTROL: * Basal insulin * Novolin-R 4 units SQ q6h - suspect that this will require titration * Bolus insulin * Novolin-R per scale Q6hrs * Goal Range: Low 100 mg/dL - High 150 mg/dL * Correction Factor: 30 mg/dL/unit * Nutritional / Prandial insulin - provided with scheduled Novolin-R PLAN FOR DISCHARGE: * to be determined
[2019-02-03] MEDS: INSULIN HUMAN REGULAR SC SCH ×2 (14:02→18:17)
[2019-02-03] MEDS ORDERED: LORazepam 1 MG TAB SL STA (14:58)
[2019-02-03] MEDS: CARBOHYDRATES FOR HYPOGLYCEMIA PO PRN ×2 (16:29→16:59)
--- NOTE | 2019-02-03 17:15 | Nephrology Progress Note ---
Date of Service February 03, 2019 Assessment & Plan (1) End stage renal disease on dialysis: Patient with ESRD due to diabetic nephropathy on dialysis Thursday using right tunneled IJ catheter. He tolerated dialysis 02/02/2019 for 4 hours. Electrolytes are stable with no signs of volume overload. No need for dialysis today. Next dialysis will be tomorrow no need for (2) Hypertension: Blood pressure is above target partly due to nausea and vomiting, unable to tolerate p.o. meds. His GI symptoms are improving. Continue current medications for blood pressure. (3) DM type 1 (diabetes mellitus, type 1): Patient with type I DM and fluctuating blood sugars. He is on insulin per primary team. No need for IV fluids as he is a dialysis patient. (4) Vomiting: Patient with a history of gastroparesis. Continue conservative management per primary care team with anti emetics. Will avoid aggressive ultrafiltration at dialysis. Subjective ESRD patient seen in follow-up during morning rounds. He continues to have nausea and vomiting. He tolerated dialysis well yesterday. No shortness of breath or leg swelling. Review of Systems Review of Systems: All systems reviewed & are unremarkable except as noted in HPI & below Physical Exam Physical Exam: General exam: Appears comfortable, no acute distress HEENT: Pupils are equal and reactive to light Neck: No JVD, neck is supple trachea is midline Respiratory system: Clear breath sounds bilaterally. Gastrointestinal: Abdomen is soft, non distended, non tender, bowel sounds are present CVS: Regular rate and rhythm. No murmurs, rubs or gallops Musculoskeletal: No joint or muscle tenderness Extremities: Non tender, no edema, peripheral pulses are present Neuro: Oriented, no tremors, no focal neurological deficits Skin: No rashes Access: Right IJ Results & Data Vital Signs (Past 12 Hours) Vital Signs Temp Pulse Pulse Resp BP Pulse Ox 02/03/19 15:24 36.9 C 87 19 163/90 H 90 02/03/19 11:48 37.0 C 66 18 143/74 H 93 02/03/19 07:49 36.8 C 100 H 18 184/92 H 97 02/03/19 07:30 99 H Laboratory Results Laboratory Results - last 24 hr 02/02/19 02/02/19 02/03/19 18:30 19:39 06:30 WBC 10.64 RBC 3.93 L Hgb 12.3 L Hct 37.8 L MCV 96.2 MCH 31.3 MCHC 32.5 RDW Std Deviation 59.6 H RDW Coeff of Kami 16.9 H Plt Count 210 MPV 9.2 Immature Gran % (Auto) 0.6 Neut % (Auto) 81.8 Lymph % (Auto) 8.8 [place] % (Auto) 8.3 Eos % (Auto) 0.2 Baso % (Auto) 0.3 Immature Gran # (Auto) 0.06 H Neut # (Auto) 8.71 H Lymph # (Auto) 0.94 L [place] # (Auto) 0.88 H Eos # (Auto) 0.02 Baso # (Auto) 0.03 Sodium Potassium Chloride Carbon Dioxide Anion Gap BUN Creatinine Est Cr Clr Drug Dosing Est GFR ( Amer) Est GFR (Non-Af Amer) BUN/Creatinine Ratio Glucose POC Glucose 119 H 175 H Calcium Total Bilirubin AST ALT Alkaline Phosphatase Total Protein Albumin Globulin Albumin/Globulin Ratio Beta-Hydroxybutyric Acd 02/03/19 02/03/19 02/03/19 06:30 07:37 07:39 WBC RBC Hgb Hct MCV MCH MCHC RDW Std Deviation RDW Coeff of Kami Plt Count MPV Immature Gran % (Auto) Neut % (Auto) Lymph % (Auto) [place] % (Auto) Eos % (Auto) Baso % (Auto) Immature Gran # (Auto) Neut # (Auto) Lymph # (Auto) [place] # (Auto) Eos # (Auto) Baso # (Auto) Sodium 131 L Potassium 4.7 Chloride 95 L Carbon Dioxide 21 Anion Gap 16.0 H BUN 35 H Creatinine 4.58 H* D Est Cr Clr Drug Dosing 16.6 Est GFR ( Amer) 16.3 Est GFR (Non-Af Amer) 14.1 BUN/Creatinine Ratio 7.6 L Glucose 402 H* POC Glucose 428 H* 395 H* Calcium 8.3 L Total Bilirubin 0.4 AST 22 ALT 20 Alkaline Phosphatase 100 Total Protein 6.6 Albumin 3.4 Globulin 3.2 Albumin/Globulin Ratio 1.1 Beta-Hydroxybutyric Acd 02/03/19 02/03/19 02/03/19 11:40 16:23 16:25 WBC RBC Hgb Hct MCV MCH MCHC RDW Std Deviation RDW Coeff of Kami Plt Count MPV Immature Gran % (Auto) Neut % (Auto) Lymph % (Auto) [place] % (Auto) Eos % (Auto) Baso % (Auto) Immature Gran # (Auto) Neut # (Auto) Lymph # (Auto) [place] # (Auto) Eos # (Auto) Baso # (Auto) Sodium Potassium Chloride Carbon Dioxide Anion Gap BUN Creatinine Est Cr Clr Drug Dosing Est GFR ( Amer) Est GFR (Non-Af Amer) BUN/Creatinine Ratio Glucose POC Glucose 230 H 58 L* 56 L* Calcium Total Bilirubin AST ALT Alkaline Phosphatase Total Protein Albumin Globulin Albumin/Globulin Ratio Beta-Hydroxybutyric Acd (1) Hypertension Hypertension type: unspecified Qualified Code(s): I10 - Essential (primary) hypertension (2) DM type 1 (diabetes mellitus, type 1) Diabetes mellitus complication status: with kidney complications Diabetes mellitus complication detail: with chronic kidney disease Chronic kidney disease stage: on chronic dialysis Qualified Code(s): E10.22 - Type 1 diabetes mellitus with diabetic chronic kidney disease; N18.6 - End stage renal disease; Z99.2 - Dependence on renal dialysis (3) Vomiting Nausea presence: with nausea Vomiting Intractability: unspecified Vomiting type: unspecified Qualified Code(s): R11.2 - Nausea with vomiting, unspecified
[2019-02-03 18:20] LABS: Appearance Urine Cloudy (Clear); Bacteria Urine Automated Negative (Negative); Bilirubin Urine Negative (Negative); Blood Urine 1+ (Negative); Color Urine Yellow; Glucose Urine UA 3+ (Negative); Ketones Urine Trace (Negative); Leukocyte Esterase Urine Negative (Negative); Nitrite Urine Negative (Negative); Protein Urine 4+ (Negative); Urobilinogen Urine Negative (Negative); WBC Urine Automated >30 /hpf (0-5)
[2019-02-03] MEDS ORDERED: SODIUM CHLORIDE 0.9% 500 ML IV SCH (19:30)
--- NOTE | 2019-02-03 20:38 | Hospitalist Progress Note ---
Date of Service February 03, 2019 Assessment & Plan (1) Nausea: felt great yesterday. was tolerating clears/full liquids. had ZERO GI symptoms yesterday. was doing well on his usual reglan TID. developed anxiety overnight - promptly developed nausea w/ emesis. he asked for ativan during the encounter today - gave ativan 1mg SL x 1. this will help anxiety and nausea. clearly his mood issues/anxiety contributes to his nausea in the setting of severe gastroparesis. will give 500cc of NS overnight as he looks volume contracted. recheck u/a and urine cx to ensure no infectious process - had UTI several months ago when he had persistent nausea. should we schedule ativan BID?? (2) Gastroparesis: as above in "nausea" will need to go back to [facility] post-d/c for further guidance has had numerous hospitalizations related to his GI symptoms (3) Hypertension: cont amlodipine uncontrolled - add coreg BID (4) End stage renal disease on dialysis: schedule - M/W/F appreciate [facility] / ?.?? nephrology assistance (5) Dyslipidemia: usually on statin resume at d/c (6) Depression: continue home meds including zoloft and wellbutrin (7) Anxiety: sertraline checked w/ pharmacy - buspar contraindicated with ESRD/CKD ativan prn?? clearly the anxiety contributes to GI symptoms (8) DM type 1 (diabetes mellitus, type 1): appreciate pharmacy assistance no longer on pump - after last hospitalization he was resumed back on SC basal- bolus regimen BSGs spiked overnight - stress of vomiting? some other infectious process brewing? other? (9) DVT prophylaxis: SCDs parents updated NOT ready for d/c Subjective Patient was feeling well until about 2200 last pm when he got anxious about various issues (was thinking about his children, etc) and then developed nausea followed by emesis. This has continued into today. It is now dry heaves. He admits to ongoing anxiety. Both parents at bedside today - they report that last Thursday the pt's ex- called him requesting additional monies to support their children - this caused stress for Ivan. He also got a phone call from [facility] / ?.?? asking him questions about renal transplant - this, too, caused stress. He denies any abd pain. Passing flatus. Review of Systems Constitutional: no fever Respiratory: no cough and no dyspnea Cardiovascular: no chest pain Gastrointestinal: no abdominal pain Genitourinary: no dysuria and no problem reported (no foul-smelling urine ) Physical Exam Constitutional: + frail appearing; no acute distress (but looks considerably worse today) and + not appropriately hydrated ENMT: Mouth: + dry oral mucous membranes Respiratory: normal respiratory effort, lungs clear to auscultation Cardiovascular: Rate/Rhythm: regular rate and regular rhythm Heart Sounds: normal S1 and normal S2; no murmur Vessels: posterior tibial pulses present a nd dorsalis pedis pulses present; no JVD Extremities: no edema Gastrointestinal (Abdomen): normal bowel sounds, soft, nontender, no hepatosplenomegaly Skin: no rashes, warm and dry right chest HD catheter clean Psychiatric: Orientation: alert and oriented x 3 Results & Data Vital Signs (Past 12 Hours) Vital Signs Temp Pulse Pulse Resp BP Pulse Ox 02/03/19 19:10 37.3 C 91 H 18 175/94 H 95 02/03/19 15:24 36.9 C 87 19 163/90 H 90 02/03/19 11:48 37.0 C 66 18 143/74 H 93 Laboratory Results Laboratory Results - last 24 hr 02/03/19 02/03/19 02/03/19 06:30 06:30 07:37 WBC 10.64 RBC 3.93 L Hgb 12.3 L Hct 37.8 L MCV 96.2 MCH 31.3 MCHC 32.5 RDW Std Deviation 59.6 H RDW Coeff of Kami 16.9 H Plt Count 210 MPV 9.2 Immature Gran % (Auto) 0.6 Neut % (Auto) 81.8 Lymph % (Auto) 8.8 Gila % (Auto) 8.3 Eos % (Auto) 0.2 Baso % (Auto) 0.3 Immature Gran # (Auto) 0.06 H Neut # (Auto) 8.71 H Lymph # (Auto) 0.94 L Gila # (Auto) 0.88 H Eos # (Auto) 0.02 Baso # (Auto) 0.03 Sodium 131 L Potassium 4.7 Chloride 95 L Carbon Dioxide 21 Anion Gap 16.0 H BUN 35 H Creatinine 4.58 H* D Est Cr Clr Drug Dosing 16.6 Est GFR ( Amer) 16.3 Est GFR (Non-Af Amer) 14.1 BUN/Creatinine Ratio 7.6 L Glucose 402 H* POC Glucose 428 H* Calcium 8.3 L Total Bilirubin 0.4 AST 22 ALT 20 Alkaline Phosphatase 100 Total Protein 6.6 Albumin 3.4 Globulin 3.2 Albumin/Globulin Ratio 1.1 Beta-Hydroxybutyric Acd Urine Color Urine Appearance Urine pH Ur Specific [place] Urine Protein Urine Glucose (UA) Urine Ketones Urine Blood Urine Nitrite Urine Bilirubin Urine Urobilinogen Ur Leukocyte Esterase Urine WBC (Auto) Urine RBC (Auto) U Hyaline Cast (Auto) U Epithel Cells (Auto) Urine Bacteria (Auto) 02/03/19 02/03/19 02/03/19 07:39 11:40 16:23 WBC RBC Hgb Hct MCV MCH MCHC RDW Std Deviation RDW Coeff of Kami Plt Count MPV Immature Gran % (Auto) Neut % (Auto) Lymph % (Auto) [place] % (Auto) Eos % (Auto) Baso % (Auto) Immature Gran # (Auto) Neut # (Auto) Lymph # (Auto) [place] # (Auto) Eos # (Auto) Baso # (Auto) Sodium Potassium Chloride Carbon Dioxide Anion Gap BUN Creatinine Est Cr Clr Drug Dosing Est GFR ( Amer) Est GFR (Non-Af Amer) BUN/Creatinine Ratio Glucose POC Glucose 395 H* 230 H 58 L* Calcium Total Bilirubin AST ALT Alkaline Phosphatase Total Protein Albumin Globulin Albumin/Globulin Ratio Beta-Hydroxybutyric Acd Urine Color Urine Appearance Urine pH Ur Specific [place] Urine Protein Urine Glucose (UA) Urine Ketones Urine Blood Urine Nitrite Urine Bilirubin Urine Urobilinogen Ur Leukocyte Esterase Urine WBC (Auto) Urine RBC (Auto) U Hyaline Cast (Auto) U Epithel Cells (Auto) Urine Bacteria (Auto) 02/03/19 02/03/19 02/03/19 16:25 16:55 17:13 WBC RBC Hgb Hct MCV MCH MCHC RDW Std Deviation RDW Coeff of Kami Plt Count MPV Immature Gran % (Auto) Neut % (Auto) Lymph % (Auto) [place] % (Auto) Eos % (Auto) Baso % (Auto) Immature Gran # (Auto) Neut # (Auto) Lymph # (Auto) [place] # (Auto) Eos # (Auto) Baso # (Auto) Sodium Potassium Chloride Carbon Dioxide Anion Gap BUN Creatinine Est Cr Clr Drug Dosing Est GFR ( Amer) Est GFR (Non-Af Amer) BUN/Creatinine Ratio Glucose POC Glucose 56 L* 50 L* 84 Calcium Total Bilirubin AST ALT Alkaline Phosphatase Total Protein Albumin Globulin Albumin/Globulin Ratio Beta-Hydroxybutyric Acd Urine Color Urine Appearance Urine pH Ur Specific [place] Urine Protein Urine Glucose (UA) Urine Ketones Urine Blood Urine Nitrite Urine Bilirubin Urine Urobilinogen Ur Leukocyte Esterase Urine WBC (Auto) Urine RBC (Auto) U Hyaline Cast (Auto) U Epithel Cells (Auto) Urine Bacteria (Auto) 02/03/19 02/03/19 02/03/19 17:55 18:02 20:04 WBC RBC Hgb Hct MCV MCH MCHC RDW Std Deviation RDW Coeff of Kami Plt Count MPV Immature Gran % (Auto) Neut % (Auto) Lymph % (Auto) [place] % (Auto) Eos % (Auto) Baso % (Auto) Immature Gran # (Auto) Neut # (Auto) Lymph # (Auto) [place] # (Auto) Eos # (Auto) Baso # (Auto) Sodium Potassium Chloride Carbon Dioxide Anion Gap BUN Creatinine Est Cr Clr Drug Dosing Est GFR ( Amer) Est GFR (Non-Af Amer) BUN/Creatinine Ratio Glucose POC Glucose 219 H 230 H Calcium Total Bilirubin AST ALT Alkaline Phosphatase Total Protein Albumin Globulin Albumin/Globulin Ratio Beta-Hydroxybutyric Acd Urine Color Yellow Urine Appearance Cloudy A Urine pH 6.0 Ur Specific [place] 1.030 Urine Protein 4+ H Urine Glucose (UA) 3+ H Urine Ketones Trace H Urine Blood 1+ H Urine Nitrite Negative Urine Bilirubin Negative Urine Urobilinogen Negative Ur Leukocyte Esterase Negative Urine WBC (Auto) >30 H Urine RBC (Auto) 5-10 H U Hyaline Cast (Auto) 5-10 H U Epithel Cells (Auto) 10-20 H Urine Bacteria (Auto) Negative PG Care Time/CCT Total # of Minutes Spent Total Time Spent with Patient: Total time spent is greater than 50% in coordination of care (as documented) at patient's floor/unit and/or counseling patient: (1) DM type 1 (diabetes mellitus, type 1) Chronic kidney disease stage: on chronic dialysis Diabetes mellitus complication detail: with chronic kidney disease Diabetes mellitus complication status: with kidney complications Qualified Code(s): E10.22 - Type 1 diabetes mellitus with diabetic chronic kidney disease; N18.6 - End stage renal disease; Z99.2 - Dependence on renal dialysis (2) Depression Active/Remission status: currently active Depression Type: major depressive disorder Major depression episode severity: severe Major depression recurrence: unspecified whether recurrent Psychotic features: without psychotic features Qualified Code(s): F32.2 - Major depressive disorder, single episode, severe without psychotic features (3) Hypertension Hypertension type: unspecified Qualified Code(s): I10 - Essential (primary) hypertension
[2019-02-03] MEDS ORDERED: LORazepam 1 MG TAB SL PRN (20:39)
[2019-02-04] MEDS: INSULIN HUMAN REGULAR SC SCH ×6 (00:03→13:53)
[2019-02-04 06:58] LABS: Basophils # (auto) 0.03 K/uL (0-0.2); Basophils % (auto) 0.3 %; Eosinophils # (auto) 0.08 K/uL (0-0.5); Eosinophils % (auto) 0.8 %; Hematocrit (blood only) 33.6 % (42-52); Hemoglobin 11.3 g/dL (14.0-18.0); Immature Granulocytes # (auto) 0.05 K/uL (0.00-0.02); Immature Granulocytes % (auto) 0.5 %; Lymphocytes # (auto) 1.75 K/uL (1.2-3.4); Lymphocytes % (auto) 16.5 %; Mean Corpuscular Hemoglobin 31.7 pg (25-34); Mean Corpuscular Hgb Conc 33.6 g/dL (32-36); Mean Corpuscular Volume 94.4 fL (80-100); Mean Platelet Volume 8.8 fL (7.4-10.4); Monocytes # (auto) 1.13 K/uL (0.11-0.59); Monocytes % (auto) 10.7 %; Neutrophils # (auto) 7.54 K/uL (1.4-6.5); Neutrophils % (auto) 71.2 %; Platelet Count 192 K/uL (130-400); RDW Coefficient of Variation 16.7 % (11.5-14.5); RDW Standard Deviation 58.2 fL (36.4-46.3); Red Blood Count 3.56 M/uL (4.7-6.1); White Blood Count 10.58 K/uL (4.8-10.8)
[2019-02-04] MEDS: CALCIUM ACETATE 667 MG CAP PO SCH ×2 (07:18→13:47)
[2019-02-04] MEDS: METOCLOPRAMIDE HCL 5 MG TABLET PO SCH ×3 (07:18→17:02)
[2019-02-04 07:38] LABS: Albumin Globulin Ratio 1.1 (0.9-2); Albumin Level 3.1 gm/dl (3.4-5.0); BUN Creatinine Ratio 7.9 (10-20); Bilirubin,Total 0.3 mg/dl (0.2-1); Calcium 7.6 mg/dl (8.5-10.1); Creatinine Clr Calc Pharmacy 12.7 ml/min; Est GFR (African American) 11.8; Est GFR (Non-African American) 10.2; Globulin 2.9 gm/dl (2.5-4.0); Potassium 3.7 mmol/L (3.5-5.1)
[2019-02-04] MEDS ORDERED: SODIUM CHLORIDE 0.9% 1000ML 1,000 ML IV PRN (07:39)
[2019-02-04] MEDS ORDERED: HEPARIN SOD (PORCINE) 1000 UNIT/ML 10 ML VIAL IV ONE (07:39)
[2019-02-04] MEDS: CARVEDILOL 3.125 MG TAB PO SCH (08:34)
[2019-02-04] MEDS: HEPARIN SOD (PORCINE) 1000 UNIT/ML 10 ML VIAL IV SCH (10:42)
[2019-02-04] MEDS: AMLODIPINE BESYLATE 5 MG TAB PO SCH (13:47)
[2019-02-04] MEDS: BuPROPion SR 100 MG TABCR PO SCH (13:47)
[2019-02-04] MEDS: SERTRALINE HCL 100 MG TABLET PO SCH (13:47)
[2019-02-04] MEDS: FAMOTIDINE 20 MG TAB PO SCH (13:47)
--- NOTE | 2019-02-04 17:50 | Nephrology Progress Note ---
Date of Service February 04, 2019 Assessment & Plan (1) End stage renal disease on dialysis: Patient with ESRD due to diabetic nephropathy on dialysis Thursday using right tunneled IJ catheter. He tolerated dialysis 02/02/2019 for 4 hours. Electrolytes are stable with no signs of volume overload. Patient tolerated dialysis this morning for 4 hours and target UF of 1 L. Next dialysis will be on Thursday (2) Hypertension: Blood pressure is above target partly due to nausea and vomiting, unable to tolerate p.o. meds. His GI symptoms are improving. Continue current medications for blood pressure. (3) DM type 1 (diabetes mellitus, type 1): Patient with type I DM and fluctuating blood sugars. He is on insulin per primary team. No need for IV fluids as he is a dialysis patient. (4) Vomiting: Patient with a history of gastroparesis. Continue conservative management per primary care team with anti emetics. Will avoid aggressive ultrafiltration at dialysis. Subjective ESRD patient seen in follow-up. Patient was seen and examined while on dialysis. He is tolerating dialysis well.vomiting has subsided. No shortness of breath and no leg swelling. Blood pressure is on the high side Review of Systems Review of Systems: All systems reviewed & are unremarkable except as noted in HPI & below Physical Exam Physical Exam: General exam: Appears comfortable, no acute distress HEENT: Pupils are equal and reactive to light Neck: No JVD, neck is supple trachea is midline Respiratory system: Clear breath sounds bilaterally. Gastrointestinal: Abdomen is soft, non distended, non tender, bowel sounds are present CVS: Regular rate and rhythm. No murmurs, rubs or gallops Musculoskeletal: No joint or muscle tenderness Extremities: Non tender, no edema, peripheral pulses are present Neuro: Oriented, no tremors, no focal neurological deficits Skin: No rashes Results & Data Vital Signs (Past 12 Hours) Vital Signs Temp Pulse Pulse Pulse Resp BP BP 02/04/19 17:04 36.7 C 87 81 18 164/95 H 02/04/19 15:50 36.7 C 87 18 164/95 H 02/04/19 13:10 36.9 C 81 166/100 H 02/04/19 13:08 81 168/100 H 02/04/19 13:00 87 188/119 H 02/04/19 12:43 88 192/114 H 02/04/19 12:20 80 199/117 H 02/04/19 12:00 81 190/116 H 02/04/19 11:42 81 118/118 H 02/04/19 11:20 81 158/111 H 02/04/19 11:00 78 170/104 H 02/04/19 10:43 83 185/112 H 02/04/19 10:04 81 168/109 H 02/04/19 09:40 81 171/102 H 02/04/19 09:20 82 172/99 H 02/04/19 09:08 81 150/95 H 02/04/19 09:00 36.9 C 82 02/04/19 07:47 36.8 C 87 18 173/96 H 02/04/19 07:38 90 Pulse Ox 02/04/19 17:04 96 02/04/19 15:50 96 02/04/19 13:10 02/04/19 13:08 02/04/19 13:00 02/04/19 12:43 02/04/19 12:20 02/04/19 12:00 02/04/19 11:42 02/04/19 11:20 02/04/19 11:00 02/04/19 10:43 02/04/19 10:04 02/04/19 09:40 02/04/19 09:20 02/04/19 09:08 02/04/19 09:00 02/04/19 07:47 94 02/04/19 07:38 Laboratory Results Laboratory Results - last 24 hr 02/03/19 02/03/19 02/03/19 17:55 18:02 20:04 WBC RBC Hgb Hct MCV MCH MCHC RDW Std Deviation RDW Coeff of Kami Plt Count MPV Immature Gran % (Auto) Neut % (Auto) Lymph % (Auto) [place] % (Auto) Eos % (Auto) Baso % (Auto) Immature Gran # (Auto) Neut # (Auto) Lymph # (Auto) [place] # (Auto) Eos # (Auto) Baso # (Auto) Sodium Potassium Chloride Carbon Dioxide Anion Gap BUN Creatinine Est Cr Clr Drug Dosing Est GFR ( Amer) Est GFR (Non-Af Amer) BUN/Creatinine Ratio Glucose POC Glucose 219 H 230 H Calcium Total Bilirubin AST ALT Alkaline Phosphatase Total Protein Albumin Globulin Albumin/Globulin Ratio Urine Color Yellow Urine Appearance Cloudy A Urine pH 6.0 Ur Specific [place] 1.030 Urine Protein 4+ H Urine Glucose (UA) 3+ H Urine Ketones Trace H Urine Blood 1+ H Urine Nitrite Negative Urine Bilirubin Negative Urine Urobilinogen Negative Ur Leukocyte Esterase Negative Urine WBC (Auto) >30 H Urine RBC (Auto) 5-10 H U Hyaline Cast (Auto) 5-10 H U Epithel Cells (Auto) 10-20 H Urine Bacteria (Auto) Negative 02/04/19 02/04/19 02/04/19 00:07 06:11 06:45 WBC 10.58 RBC 3.56 L Hgb 11.3 L Hct 33.6 L MCV 94.4 MCH 31.7 MCHC 33.6 RDW Std Deviation 58.2 H RDW Coeff of Kami 16.7 H Plt Count 192 MPV 8.8 Immature Gran % (Auto) 0.5 Neut % (Auto) 71.2 Lymph % (Auto) 16.5 [place] % (Auto) 10.7 Eos % (Auto) 0.8 Baso % (Auto) 0.3 Immature Gran # (Auto) 0.05 H Neut # (Auto) 7.54 H Lymph # (Auto) 1.75 [place] # (Auto) 1.13 H Eos # (Auto) 0.08 Baso # (Auto) 0.03 Sodium Potassium Chloride Carbon Dioxide Anion Gap BUN Creatinine Est Cr Clr Drug Dosing Est GFR ( Amer) Est GFR (Non-Af Amer) BUN/Creatinine Ratio Glucose POC Glucose 120 H 215 H Calcium Total Bilirubin AST ALT Alkaline Phosphatase Total Protein Albumin Globulin Albumin/Globulin Ratio Urine Color Urine Appearance Urine pH Ur Specific [place] Urine Protein Urine Glucose (UA) Urine Ketones Urine Blood Urine Nitrite Urine Bilirubin Urine Urobilinogen Ur Leukocyte Esterase Urine WBC (Auto) Urine RBC (Auto) U Hyaline Cast (Auto) U Epithel Cells (Auto) Urine Bacteria (Auto) 02/04/19 02/04/19 02/04/19 06:45 13:51 16:45 WBC RBC Hgb Hct MCV MCH MCHC RDW Std Deviation RDW Coeff of Kami Plt Count MPV Immature Gran % (Auto) Neut % (Auto) Lymph % (Auto) [place] % (Auto) Eos % (Auto) Baso % (Auto) Immature Gran # (Auto) Neut # (Auto) Lymph # (Auto) [place] # (Auto) Eos # (Auto) Baso # (Auto) Sodium 133 L Potassium 3.7 D Chloride 97 L Carbon Dioxide 24 Anion Gap 12.0 H BUN 47 H Creatinine 6.00 H* D Est Cr Clr Drug Dosing 12.7 Est GFR ( Amer) 11.8 Est GFR (Non-Af Amer) 10.2 BUN/Creatinine Ratio 7.9 L Glucose 211 H POC Glucose 112 H 140 H Calcium 7.6 L Total Bilirubin 0.3 AST 15 ALT 21 Alkaline Phosphatase 92 Total Protein 6.0 L Albumin 3.1 L Globulin 2.9 Albumin/Globulin Ratio 1.1 Urine Color Urine Appearance Urine pH Ur Specific [place] Urine Protein Urine Glucose (UA) Urine Ketones Urine Blood Urine Nitrite Urine Bilirubin Urine Urobilinogen Ur Leukocyte Esterase Urine WBC (Auto) Urine RBC (Auto) U Hyaline Cast (Auto) U Epithel Cells (Auto) Urine Bacteria (Auto) (1) Hypertension Hypertension type: unspecified Qualified Code(s): I10 - Essential (primary) hypertension (2) DM type 1 (diabetes mellitus, type 1) Diabetes mellitus complication status: with kidney complications Diabetes mellitus complication detail: with chronic kidney disease Chronic kidney disease stage: on chronic dialysis Qualified Code(s): E10.22 - Type 1 diabetes mellitus with diabetic chronic kidney disease; N18.6 - End stage renal disease; Z99.2 - Dependence on renal dialysis (3) Vomiting Nausea presence: with nausea Vomiting Intractability: unspecified Vomiting type: unspecified Qualified Code(s): R11.2 - Nausea with vomiting, unspecified
--- NOTE | 2019-02-10 22:06 | Discharge Summary ---
Date of Service date of admission - 01/31/2019 date of discharge - 02/04/2019 Admission HPI Per Admitting Provider 48 y/o male with ESRD on HD who presented c/o n/v starting yesterday. Pt states he has not been able to keep anything down for about 24 hours. He states that this is usually how he feels when his BS are elevated or when his gastroparesis is an issue. His BS yesterday were in the 130s though. He was able to go to HD today and they were able to complete his session, but he did have n/v during this. His BP was high there, but he generally takes his medications after HD. His last meds were yesterday AM. No abd pain. Pt denies fever, SOB, chest pain, c/d, LE pain or swelling. Pt states he does feel a bit improved s/p IVF in the ED, but still with ongoing n/v. Principal Diagnosis nausea/vomiting - likely 2nd to gastroparesis and anxiety Discharge Exam Constitutional + thin and + frail appearing; no acute distress ENMT external ear and nose normal, oropharynx normal Respiratory normal respiratory effort, lungs clear to auscultation Cardiovascular Rate/Rhythm: regular rate and regular rhythm Heart Sounds: normal S1 and normal S2; no murmur Vessels: posterior tibial pulses present and dorsalis pedis pulses present; no JVD Extremities: no edema Chest (Breasts) Additional Comments: right sided HD catheter clean Gastrointestinal (Abdomen) normal bowel sounds, soft, nontender, no hepatosplenomegaly Musculoskeletal AV fistula - left arm - no thrill or bruit Skin no rashes, warm and dry Psychiatric Orientation: alert and oriented x 3 Affect: no depressed affect and no anxious affect Discharge Data Allergies Allergy/AdvReac Type Severity Reaction Status Date / Time shellfish derived Allergy Severe anaphylaxis Verified 02/10/19 12:11 codeine Allergy Intermediate Hives Verified 02/10/19 12:11 promethazine Allergy Intermediate itchy/hives Verified 02/10/19 12:11 Consultations [facility] Nephrology Ordered Studies 1. CT abd/pelvis - IMPRESSION: 1. Focal hypodensity within the splenic vein near the portal splenic confluence. This could be due to mixing artifact or a nonocclusive thrombus. Splenic vein ultrasound is recommended for further evaluation. 2. No definite bowel wall thickening or obstruction. 3. Right-sided nephrolithiasis. No hydronephrosis. 4. Chronic bladder wall thickening, unchanged. Recommend correlation with urinalysis to exclude a cystitis. 5. Additional stable findings as described above. 2. US duplex portal hepatic veins - IMPRESSION: Patent splenic vein. No evidence of splenic vein thrombosis. Hospital Course (1) Nausea: Patient's symptoms waxed and waned during the stay. At times he felt great with NO GI symptoms and at other times, without warning and without any obvious reason, he had recurrent symptoms. This pattern was quite similar to past hospitalizations. His episodes of nausea/emesis often were provoked by anxiety. We used ativan sparingly with improvement of the anxiety as well as the nausea/emesis. Overall it was felt that his mood issues/anxiety contributed heavily to his nausea in the setting of severe gastroparesis. At discharge he will continue his reglan TID and a small amount of ativan SL was given to use sparingly for nausea/emesis/anxiety. He was also encouraged to follow-up with his gastroparesis provider at [facility] in [place] in the next few weeks to discuss other treatment options. (2) Gastroparesis: as above in "nausea" will need to go back to [facility] post-d/c for further guidance has had numerous hospitalizations related to his GI symptoms (3) Hypertension: was uncontrolled for much of his stay. he will cont amlodipine. added coreg BID as well. (4) End stage renal disease on dialysis: schedule - M/W/F dialysis services were managed by the [facility] nephrology team (5) Dyslipidemia: cont statin (6) Depression: continue home meds including zoloft and wellbutrin the wellbutrin was recently added and has helped him tremendously with his moods he is also in counseling and will continue such post-discharge his depression has been severe over the last 12-18 months (7) Anxiety: cont sertraline ativan SPARINGLY for severe symptoms (8) DM type 1 (diabetes mellitus, type 1): the pharmacy glycemic team provided DM assistance while here he was labile, with some lows and some highs about 24 hours prior to discharge most BSGs were <200 he will continue on a SC basal-bolus schedule at home Total Time Total Time Spent Total Time Spent (In Minutes): 40 Total Time Includes: Examination of the Patient, Discharge Planning, Medication Reconciliation and Communication With Other Providers Discharge Plan Discharge Items Patient Disposition: Home - Self-Care Reason For Visit: Nausea, vomiting Discharge Diagnosis: nausea/vomiting likely due to combination of gastroparesis and anxiety Discharge Goals: Diagnostic testing and Therapeutic intervention Activity: Resume your previous activity Non-emergency contact: Primary Care Provider and [employer] Call non-emergency contact if: you have any medication questions, your symptoms worsen and your temperature is above 100.5 Follow-up/Referrals: Cory Celestin MD [Primary Care Provider] - 02/08/19 2:30 pm (Please, follow up at Dr. Celestin's office with his associate, Sharlene Proctor, on ThursdayFebruary 08 at 2:30 pm. *If you need to change this appointment, call the office at [phone].) Diet: Carb Count or DM1 and Full liquid Fluids: 1500ml (6 cups) Addtl Provider Instructions: You were admitted for nausea and vomiting - likely due to a combination of your gastroparesis and anxiety. Recommendations - 1. please continue on your reglan (metoclopramide) 5mg before meals for PREVENTION of nausea/vomiting 2. may take ativan (lorazepam) 0.5mg under the tongue every 6 hours for nausea, vomiting and/or anxiety; please use these sparingly; do not drink alcohol with this medication. Do not drive with this medication. You can become dependent on ativan if you use them for long periods of time. 3. please START carvedilol 3.125mg twice daily for your blood pressure. Take your first dose tonight. Prescription called to your pharmacy for you. 4. please contact your GI specialist at [place] to discuss further treatment options for your gastroparesis. 5. please continue ongoing therapy with your counselor. 6. please report for regular dialysis on Thursday as scheduled. 7. gradually increase your diet over the next 1-2 days; start with full liquids (all liquids including dairy) and gradually re-introduce solids into your diet. Best to eat frequent, small meals. follow-up - see your family doctor in 1 week return to [facility] if - * you have fever over 100.5 degrees * you have vomiting that is not responding to your zofran, reglan, ativan, etc * you have severely high (or low) blood sugars * you have suicidal thoughts or thoughts of hurting someone else * any other concerns Prescriptions: New carvedilol 3.125 mg Tablet 3.125 mg PO BID Qty: 60 RF: 5 Continued ondansetron HCl [Zofran] 4 mg tablet 4 mg PO TID PRN (Reason: Nausea And Vomiting) RF: 0 atorvastatin 10 mg tablet 10 mg PO QAM RF: 0 cholecalciferol (vitamin D3) [Vitamin D3] 2,000 unit Capsule 2,000 unit PO QAM RF: 0 metoclopramide HCl 5 mg tablet 5 mg PO TID RF: 0 prochlorperazine [Compazine] 25 mg suppository 25 mg MT BID PRN (Reason: Nausea) RF: 0 Major Caps 1 mg capsule 1 cap PO QAM RF: 0 calcium acetate 667 mg capsule 667 mg PO TIDM MDD 7 CAPSULES/DAY RF: 0 famotidine 20 mg Tablet 20 mg PO QAM Qty: 30 RF: 5 amlodipine 10 mg tablet 10 mg PO DAILY RF: 0 sertraline 100 mg tablet 200 mg PO QAM Qty: 60 RF: 0 aprepitant 80 mg capsule 80 mg PO WK RF: 0 bupropion HCl 100 mg tablet sustained-release 12 hr 100 mg PO QAM RF: 0 insulin lispro [Admelog SoloStar U-100 Insulin] 100 unit/mL insulin pen See Rx Instructions subcut DAILY PRN (Reason: sliding scale) RF: 0 Basaglar KwikPen U-100 Insulin 100 unit/mL (3 mL) insulin pen 13 units SQ DAILY@0930 RF: 0 No Action lorazepam [Ativan] 0.5 mg Tablet 0.5 mg PO UD PRN (Reason: Anxiety) RF: 0 Stand-Alone Forms: [facility] Discharge Orders: Discharge Order (Routine); Ordered 02/04/19 Ordered By: Guevara Townsend Admission Data Admit Date/Time: 01/31/19 15:57 Attending Provider: Guevara Townsend Admit Provider: Herminia Koroma Primary Care Provider: oCry Celestin Other Providers: Herminia Koroma ; Suman Montilla Service: Telemetry Medical Other Interventions: Discharge Summary Assessment (RN) Last Done: 02/04/19 17:04 Pending Studies at Discharge: No DC Date/Time DO NOT enter until pt leaves facility: 02/04/19 18:00
== END 2019-02-04 18:00 | disposition home or self-care (01) | DRG 391 ==
LOC: ED 09:07 → SUATTDRO 15:57 → 2N 15:57
DX: R11.2 Nausea with vomiting, unspecified; Z91.013 Allergy to seafood; Z82.49 Family history of ischemic heart disease and other diseases of the circulatory system; K31.84 Gastroparesis; Z99.2 Dependence on renal dialysis; E10.43 Type 1 diabetes mellitus with diabetic autonomic (poly)neuropathy; Z90.49 Acquired absence of other specified parts of digestive tract; I12.0 Hypertensive chronic kidney disease with stage 5 chronic kidney disease or end stage renal disease; Z88.5 Allergy status to narcotic agent; Z79.4 Long term (current) use of insulin; E78.5 Hyperlipidemia, unspecified; Z83.3 Family history of diabetes mellitus; N18.6 End stage renal disease; F41.8 Other specified anxiety disorders

== ENCOUNTER 2019-02-10 10:01 | Inpatient (IN) ==
[2019-02-10] MEDS ORDERED: OXYCODONE HCL IR 5 MG TAB (IMMEDIATE RELEASE) PO STA (11:11)
--- NOTE | 2019-02-10 11:47 | XRay Report ---
SINGLE VIEW PELVIS; 2 VIEWS RIGHT HIP; 2 VIEWS RIGHT FEMUR CLINICAL HISTORY: Fall with right leg injury. FINDINGS: An AP supine view of the pelvis with AP and crosstable lateral views of the right hip and A P and frog-leg views of the right femur are obtained. Correlation is made with pelvic CT dated 019. The skeletal structures are osteopenic. There is a nondistracted fracture through the greater tr ochanter of the right femur. No additional fracture is identified involving the hips or bony pelvis. There is no radiographic evidence of additional right femoral fracture. Minimal degenerative joint sp camilo narrowing is seen in the hips. The sacroiliac joints are normal as imaged. The right knee joint i s grossly intact. The overlying soft tissues are normal in appearance. Advanced atherosclerotic calci fication is noted in the femoral arteries. Phleboliths are observed in the pelvis. Suture material is seen in the right mid abdomen. A nonobstructing right renal calculus is again noted. IMPRESSION: 1. There is a nondistracted fracture through the greater trochanter of the right femur. 2. No additional fracture is identified involving the hips or bony pelvis. 3. No additional fracture is seen involving the right femur. Electronically signed by: Dev Burden M.D. 02/10/2019 11:46 AM
--- NOTE | 2019-02-10 11:50 | Emergency Department Note ---
History of Present Illness General Chief complaint: Hip Pain Stated complaint: fall/ R hip pain Time Seen by Provider: 02/10/19 11:02 History of Present Illness Maximum Pain Intensity: 8 48-year-old male, history of end-stage kidney disease on dialysis, type 1 diabetes, gastroparesis and CHF, who presents to the emergency department for evaluation of right hip pain after falling at home. The patient reports a history of chronic dizziness. He was admitted to the hospital last week with similar symptoms, and does not feel that he needs any further work-up for his dizziness. The patient reports falling directly onto the right hip, and complains of pain with ambulation. He denies any pain extending into the back. He denies head injury, neck pain or other extremity injuries except for mild abrasions to the right hand. Tetanus immunization is up-to-date. The patient rated his discomfort an 8 out of 10. Home Medications Home Medications Medication Instructions Recorded Confirmed Type [place] Caps 1 cap PO QAM 12/19/18 02/10/19 History calcium acetate 667 mg PO TIDM MDD 7 CAPSULES/DAY 12/19/18 02/10/19 History cholecalciferol (vitamin D3) 2,000 unit PO QAM 12/23/18 02/10/19 History [Vitamin D3] famotidine 20 mg PO QAM #30 tab 12/23/18 02/10/19 Rx metoclopramide HCl 5 mg PO TID 12/23/18 02/10/19 History sertraline 200 mg PO QAM #60 tab 12/28/18 02/10/19 Rx atorvastatin 10 mg tablet 10 mg PO QAM tab 01/06/19 02/10/19 History prochlorperazine 25 mg rectal 25 mg [place] BID PRN ea 01/06/19 02/10/19 History suppository ondansetron HCl 4 mg tablet 4 mg PO TID PRN 01/12/19 02/10/19 History Marj Mayers U-100 Insulin 13 units SQ DAILY@0930 01/31/19 02/10/19 History aprepitant 80 mg PO WK 01/31/19 02/10/19 History bupropion HCl 100 mg PO QAM 01/31/19 02/10/19 History insulin lispro [Admelog SoloStar See Rx Instructions SUBCUT DAILY 01/31/19 02/10/19 History U-100 Insulin] PRN amlodipine 10 mg tablet 10 mg PO DAILY tab 02/04/19 02/10/19 History carvedilol 3.125 mg PO BID #60 tab 02/04/19 02/10/19 Rx lorazepam [Ativan] 0.5 mg PO UD PRN 02/10/19 02/10/19 History Allergies Allergy/AdvReac Type Severity Reaction Status Date / Time shellfish derived Allergy Severe anaphylaxis Verified 02/10/19 12:11 codeine Allergy Intermediate Hives Verified 02/10/19 12:11 promethazine Allergy Intermediate itchy/hives Verified 02/10/19 12:11 Past Med/Surg History Medical History Acid reflux Hypertension Type I diabetes mellitus Insulin pump (diagnosed at age 31) Gastroparesis due to DM Depression Anemia Anxiety CAD (coronary artery disease) mild, non-obstructive CAD per 10/2018 cardiac cath ESRD (end stage renal disease) Hemodialysis M,W,F (Follows with Dr. Taylor Higgins; [facility]). Kidney stones Peripheral neuropathy Retinopathy due to secondary diabetes Surgical History History of appendectomy H/O shoulder surgery RIGHT History of hip surgery LEFT HIP ARTHROSCOPY History of cardiac cath 10/2018= no stents, no obstructive disease (at [facility]) History of lithotripsy Permanent central venous catheter in place Permacath Family History Grandfather Myocardial infarction Grandfather (Maternal) Family history of diabetes mellitus Uncle Myocardial infarction Social History Preferred Language: British Communication Ability: Effective Visual Impairment: No Limitations Hearing Ability: Normal Millroom Supervisor Required: No Beliefs That Will Affect Care: None marital status: Legally Current Living Situation: Parent current occupational status: unemployed Other Information That Helps Us Care for You: No Feels Safe at Home: Yes Safety Concerns: Feels Safe At This Time Smoking Status: Never smoker Tobacco Type: smokeless tobacco ; Second Hand Exposure: No ; Hx Alcohol Use: No Hx Substance Use: No Childhood Exposure to Second-Hand Smoke: Yes Dental Care, Regularly: No Physical Activity Frequency: 1-2 Times per Week Seatbelt Use: always Sunscreen Use: No Review of Systems 10 system review was performed and was negative except for pertinent positives and negatives as indicated in history of present illness Physical Exam Vital Signs Vital Signs - 24 hr 02/10/19 10:05 02/10/19 11:01 02/10/19 13:30 Temperature 36.8 C Temperature Source Oral Sepsis Recent Fever Within 48 Hours No Sepsis New/Unexplained Change in Mental Status No Sepsis Action Taken by Nursing No Action Required Pulse Rate 92 H Pulse Rate [Finger] 87 85 Respiratory Rate 20 18 18 Respiratory Effort / Characteristics Non-Labored Non-Labored Spontaneous Respiratory Depth Normal Normal Respiratory Pattern Regular Regular Blood Pressure 178/111 H Blood Pressure [Right Arm] 145/91 H 119/76 Blood Pressure Mean 133 Blood Pressure Mean [Right Arm] 109 90 Pulse Oximetry 98 97 99 Oxygen Delivery Method Room Air Room Air Room Air 02/10/19 15:01 Temperature Temperature Source Sepsis Recent Fever Within 48 Hours Sepsis New/Unexplained Change in Mental Status Sepsis Action Taken by Nursing Pulse Rate Pulse Rate [Finger] 76 Respiratory Rate 18 Respiratory Effort / Characteristics Respiratory Depth Respiratory Pattern Blood Pressure Blood Pressure [Right Arm] 122/78 Blood Pressure Mean Blood Pressure Mean [Right Arm] 92 Pulse Oximetry 96 Oxygen Delivery Method Room Air CONSTITUTIONAL: Healthy and well nourished. Alert and oriented X 3. Patient appears in mild discomfort. HEENT: Normocephalic, atraumatic. Pupils equal, round and reactive. NECK: Full active range of motion without discomfort. RESPIRATORY: Clear to auscultation bilaterally with no wheezing, crackles, rhonchi or stridor. CARDIOVASCULAR: Regular rate and rhythm with no murmurs, rubs or gallops. GASTROINTESTINAL: Bowel sounds present in all quadrants. Soft and nontender to palpation. MUSCULOSKELETAL: Examination of the right hip does not show any open wounds, abrasions, erythema or ecchymosis. The patient has discomfort with logroll. Pelvis stable with rock. Distal pulses are intact. INTEGUMENTARY: No rash or other significant dermatologic conditions noted. HEMATOLOGIC: No ecchymosis or petechiae. PSYCHIATRIC: Positive affect. NEUROLOGIC: No focal neurologic deficits noted. Course Patient history and physical exam were performed. Nurse's notes were reviewed. Vital signs were reviewed, showing an elevated blood pressure of 178/111. The patient was administered OxyIR 5 mg for pain. X-rays of the pelvis, right hip and femur shows a non-distracted greater trochanteric fracture. X-rays were discussed with Davis Vega PA-C with [facility]. He reviewed x- rays with his attending surgeon, and recommended an MRI of the hip to rule out intertrochanteric component. The patient was in agreement with this plan as well. Noncontrast CT of the hip does confirm an intertrochanteric fracture. I spoke again with Mr. Vega who indicated that if the patient is cleared medically, would undergo surgical management. Patient was in agreement with admission for a preoperative medical clearance and possible surgical intervention. The case will be assigned to Dr. Luevano, orthopedic surgeon who is risk control field representative, and Mr. Vega stated that he would text him of the situation. The case was then discussed with Dr. Collier, [facility] hospitalist, who will further evaluate the patient. Please see her and orthopedics dictations for further treatment and final disposition. In preparation for possible surgical intervention, I did place orders for baseline lab work, ECG and portable chest x-ray. Labs were reviewed and pretty much baseline with prior historical labs. BNP is markedly elevated over 35,000. A portable chest x-ray did not show any acute findings or evidence of heart failure. An ECG shows a normal sinus rhythm with prolonged QT which has shortened since the patient's last ECG dated 01/31/2019. The patient is also had some changes in T waves laterally, with improvement of inverted T waves in anterior leads that were noted in his prior ECG. Administered Medications Discontinued Medications Morphine Sulfate (Morphine Sulfate) 8 mg IM NOW STA Stop: 02/10/19 12:55 Last Admin: 02/10/19 13:03 Dose: 8 mg Documented by: [id number] Morphine Sulfate (Morphine Sulfate) 4 mg IV NOW STA Stop: 02/10/19 15:15 Last Admin: 02/10/19 15:52 Dose: 4 mg Documented by: [id number] Oxycodone HCl (Roxicodone Immediate Rel) 5 mg PO NOW STA Stop: 02/10/19 11:12 Last Admin: 02/10/19 11:45 Dose: 5 mg Documented by: [id number] Medical Decision Making Medical Records Attestation: I reviewed the patient's medical records. Home Medications Current Medication List: was personally reviewed by Laboratory Data Attestation: I reviewed the patient's lab results. Result diagrams: 02/10/19 15:36 02/10/19 15:36 Lab Results 02/10/19 Range/Units 14:28 POC Glucose 157 H (70-99) Imaging Data Attestation: I personally reviewed and interpreted this imaging study as follows: My Impression: My interpretation of pelvis, right hip and right femur x-ray shows a non-distracted greater trochanteric fracture without any additional findings noted within the pelvis, hip joint or femur. Radiologist report was also reviewed. Noncontrast MRI of the right hip confirms an intertrochanteric fracture with bilateral femoral bone infarcts. Radiologist also makes mention of a probable small tear of the anterosuperior labrum. My interpretation of a portable chest x-ray does not show any consolidations, pneumothorax, cardiomegaly or evidence for failure. Radiologist reports were reviewed. Radiologist's Impression: SINGLE VIEW PELVIS; 2 VIEWS RIGHT HIP; 2 VIEWS RIGHT FEMUR CLINICAL HISTORY: Fall with right leg injury. FINDINGS: An AP supine view of the pelvis with AP and crosstable lateral views of the right hip and AP and frog-leg views of the right femur are obtained. Correlation is made with pelvic CT dated 01/31/2019. The skeletal structures are osteopenic. There is a nondistracted fracture through the greater trochanter of the right femur. No additional fracture is identified involving the hips or bony pelvis. There is no radiographic evidence of additional right femoral fracture. Minimal degenerative joint space narrowing is seen in the hips. The sacroiliac joints are normal as imaged. The right knee joint is grossly intact. The ove rlying soft tissues are normal in appearance. Advanced atherosclerotic calcification is noted in the femoral arteries. Phleboliths are observed in the pelvis. Suture material is seen in the right mid abdomen. A nonobstructing right renal calculus is again noted. IMPRESSION: 1. There is a nondistracted fracture through the greater trochanter of the right femur. 2. No additional fracture is identified involving the hips or bony pelvis. 3. No additional fracture is seen involving the right femur. MR hip RT wo con HISTORY: 48 years-old Male R hip fracture - R/O intertroch fx acute right hip pain COMPARISON: Right femur and right hip radiographs of same day TECHNIQUE: Multiplanar multisequence MRI of the right hip was obtained without the use of IV contrast FINDINGS: Motion degraded exam. There is acute nondisplaced intratrochanteric fracture of the right femur with extension into the right greater trochanter. Moderate bone marrow and adjacent soft tissue edema. Bone marrow edema of the bilateral fe moral shafts suggests bone infarcts. Mild osteoarthritis of the bilateral femoral acetabular joints. No acute abnormality of the imaged intrapelvic structures. Trace right hip joint effusion. Probable small tear of the anterosuperior labrum. No additional acute fracture or dislocation. Large stool ball the rectum. IMPRESSION: 1. Acute nondisplaced intertrochanteric fracture of the right femur with reactive bone marrow and adjacent soft tissue edema. 2. Trace right hip joint effusion. 3. Bone infarcts about the bilateral femoral shafts. ECG Data Attestation: I personally reviewed and interpreted this ECG as follows: Indication: other (Preoperative ECG) Rate (beats per minute): 76 Rhythm: normal sinus Findings: + ST depression, + T-wave inversion and + prolonged QT Comparison ECG Date: from (01/31/2019) Change: the following changes noted (QT interval has shortened since his previous ECG; nonspecific T wave abnormalities now evident in inferior leads; T wave inversions are no longer evident in anterior leads.) Blood Pressure Blood Pressure Findings: Normal blood pressure MDM Narrative Patient presents the emergency department for evaluation of injuries after becoming dizzy and falling. The patient initially refused any work-up for his dizziness. Initial x-rays of the right hip showed a non-distracted greater trochanteric fracture. Orthopedics recommended an MRI of the hip, which was performed and showed an intratrochanteric fracture that is amenable to surgical management. The patient will require preoperative medical clearance given his history. His ECG does show some ST-T wave abnormalities in inferolateral leads, concerning for ischemic changes. He also has a prolonged QT which has improved from his last ECG. The hospital service can further work-up these changes. Based on the patient's history and physical exam, I do not feel that further CT imaging of the head or spine is warranted. Impression & Plan Closed intertrochanteric fracture of right hip, DM type 1 (diabetes mellitus, type 1), End stage renal disease on dialysis, Status post fall Discharge Plan Visit Data *Final* Discharge Date/Time: 02/10/19 16:47 Chief Complaint: Hip Pain Stated Complaint: fall/ R hip pain ED Provider: Galen Ng ED Midlevel Provider: Wagner Patel Discharge Problem: Closed intertrochanteric fracture of right hip, DM type 1 (diabetes mellitus, type 1), End stage renal disease on dialysis, Status post fall Patient Disposition: Admitted As Inpatient Discharge Instructions Interventions: ED Discharge Assessment Last Done: 02/10/19 16:47
[2019-02-10] MEDS ORDERED: MoRPHine SULFATE 10 MG/ML CARP/VIAL IM STA (12:54)
--- NOTE | 2019-02-10 14:40 | Magnetic Resonance Report ---
MR hip RT wo con HISTORY: 48 years-old Male R hip fracture - R/O intertroch fx acute right hip pain COMPARISON: Right femur and right hip radiographs of same day TECHNIQUE: Multiplanar multisequence MRI of the right hip was obtained without the use of IV contrast FINDINGS: Motion degraded exam. There is acute nondisplaced intratrochanteric fracture of the right femur with extension into the right greater trochanter. Moderate bone marrow and adjacent soft tissue edema. Bon e marrow edema of the bilateral femoral shafts suggests bone infarcts. Mild osteoarthritis of the ginette ateral femoral acetabular joints. No acute abnormality of the imaged intrapelvic structures. Trace ri ght hip joint effusion. Probable small tear of the anterosuperior labrum. No additional acute fractur e or dislocation. Large stool ball the rectum. IMPRESSION: 1. Acute nondisplaced intertrochanteric fracture of the right femur with reactive bone marrow and adj acent soft tissue edema. 2. Trace right hip joint effusion. 3. Bone infarcts about the bilateral femoral shafts. The above report was generated using voice recognition software. It may contain grammatical, syntax o r spelling errors. Electronically signed by: Ti Martinez M.D. 02/10/2019 2:39 PM
[2019-02-10] MEDS ORDERED: MoRPHine SULFATE 4 MG/ML 1 ML CARP\\VIAL IV STA (15:14)
[2019-02-10] MEDS ORDERED: ZOLPIDEM TARTRATE 5 MG TAB PO PRN (15:28)
[2019-02-10] MEDS ORDERED: ACETAMINOPHEN 325 MG TAB PO PRN (15:28)
[2019-02-10] MEDS ORDERED: POLYETHYLENE (MIRALAX) 17 GM PACK PO PRN (15:28)
--- NOTE | 2019-02-10 15:36 | XRay Report ---
SINGLE VIEW CHEST CLINICAL HISTORY: Preoperative examination. FINDINGS: 2 AP, portable, supine chest radiographs are compared to study dated 12/26/2018. The examina tion is degraded by portable technique and patient rotation. A right subclavian dialysis catheter is in place. The cardiomediastinal silhouette is unremarkable. The lungs appear hyperinflated. No airspa ce consolidation or pleural effusion is identified. No pneumothorax is seen. The skeletal structures are osteopenic. The bony thorax is grossly intact. IMPRESSION: No active disease in the chest. Electronically signed by: Dev Burden M.D. 02/10/2019 3:35 PM
[2019-02-10 15:47] LABS: Basophils # (auto) 0.04 K/uL (0-0.2); Basophils % (auto) 0.2 %; Eosinophils # (auto) 0.07 K/uL (0-0.5); Eosinophils % (auto) 0.4 %; Hematocrit (blood only) 39.4 % (42-52); Hemoglobin 13.1 g/dL (14.0-18.0); Immature Granulocytes # (auto) 0.11 K/uL (0.00-0.02); Immature Granulocytes % (auto) 0.6 %; Lymphocytes # (auto) 2.53 K/uL (1.2-3.4); Lymphocytes % (auto) 13.6 %; Mean Corpuscular Hgb Conc 33.2 g/dL (32-36); Mean Corpuscular Volume 95.6 fL (80-100); Mean Platelet Volume 9.8 fL (7.4-10.4); Monocytes # (auto) 1.74 K/uL (0.11-0.59); Monocytes % (auto) 9.4 %; Neutrophils # (auto) 14.07 K/uL (1.4-6.5); Neutrophils % (auto) 75.8 %; Platelet Count 287 K/uL (130-400); RDW Coefficient of Variation 16.2 % (11.5-14.5); RDW Standard Deviation 56.5 fL (36.4-46.3); Red Blood Count 4.12 M/uL (4.7-6.1); White Blood Count 18.56 K/uL (4.8-10.8)
[2019-02-10 16:20] LABS: Alanine Aminotransferase 26 U/L (12-78); Albumin Level 3.5 gm/dl (3.4-5.0); Alkaline Phosphatase 87 U/L (45-117); Aspartate Aminotransferase 19 U/L (15-37); BUN Creatinine Ratio 8.3 (10-20); Bilirubin,Total 0.3 mg/dl (0.2-1); Blood Urea Nitrogen 41 mg/dl (7-18); Calcium 8.3 mg/dl (8.5-10.1); Carbon Dioxide 31 mmol/L (21-32); Chloride 97 mmol/L (98-107); Creatinine Clr Calc Pharmacy 15.3 ml/min; Est GFR (Non-African American) 12.9; Globulin 3.4 gm/dl (2.5-4.0); Glucose 120 mg/dl (70-99); NT Pro B Type Natriuretic Pept > 35000 pg/ml (0-450); Potassium 4.2 mmol/L (3.5-5.1); Sodium 135 mmol/L (136-145); Total Protein 6.9 gm/dl (6.4-8.2)
[2019-02-10] MEDS ORDERED: LORazepam 0.5 MG TAB PO PRN (16:54)
[2019-02-10] MEDS ORDERED: CALCIUM ACETATE 667 MG CAP PO PRN (17:02)
[2019-02-10] MEDS ORDERED: OXYCODONE HCL IR 5 MG TAB (IMMEDIATE RELEASE) PO PRN (17:14)
[2019-02-10] MEDS ORDERED: GLUCOSE 40% GEL 15 GM TUBE PO PRN (17:15)
[2019-02-10] MEDS ORDERED: CARBOHYDRATES FOR HYPOGLYCEMIA PO PRN (17:15)
[2019-02-10] MEDS ORDERED: GLUCOSE 10 TABS/TUBE PO PRN (17:15)
[2019-02-10] MEDS ORDERED: GLUCAGON FOR INJ 1 MG VIAL IM PRN (17:15)
[2019-02-10] MEDS ORDERED: PHARMACY GLYCEMIC MGMT CONSULT PRN (17:45)
[2019-02-10] MEDS: CALCIUM ACETATE 667 MG CAP PO SCH (18:16)
[2019-02-10] MEDS: APREPITANT 80 MG CAP PO SCH (18:17)
[2019-02-10] MEDS: METOCLOPRAMIDE HCL 5 MG TABLET PO SCH (18:17)
[2019-02-10] MEDS: INSULIN HUMAN REGULAR SC SCH (18:18)
[2019-02-10] MEDS ORDERED: MoRPHine SULFATE 4 MG/ML 1 ML CARP\\VIAL IV PRN (19:29)
--- NOTE | 2019-02-10 20:00 | History & Physical Report ---
Date of Service February 10, 2019 Assessment & Plan (1) Closed intertrochanteric fracture of right hip: Admit to inpatient on telemetry Vital signs every 4 hours Pain management Started ceftriaxone for possible urinary tract infection, patient still produces some urine We will do straight cath. Elevated white blood cell count could be due to intratrochanteric fracture as result of the stress related to the injury If urine analysis normal would stop ceftriaxone. No other source of infection. [facility] consulted They requested patient to be cleared for the possible surgery tomorrow BNP 35,000, most likely related to CHF as well as end-stage renal disease and poor clearance. Pending TTE Possibly conservative treatment of the intertrochanteric fracture should be discussed with Ortho as well due to patient's multiple comorbidities pending cardiac evaluation Cardiac consult placed Replenish electrolytes, follow CBC CMP daily. Patient is due hemodialysis on Thursday Consulted nephrology Hold medical DVT prophylaxis SCDs and teds Full code (2) End stage renal disease on dialysis: Dialysis Thursday and Thursday. Patient is due dialysis tomorrow. Nephrology consulted Present on Admission?: Yes (3) DM type 1 (diabetes mellitus, type 1): AC and at bedtime, glycemic control per pharmacy Present on Admission?: Yes (4) Hypertension: Hold carvedilol and amlodipine since blood pressure is below 100. Restart when blood pressure improves. Present on Admission?: Yes (5) CHF (congestive heart failure): Chest x-ray did not show pulmonary edema. BNP most likely elevated due to end-stage renal disease. TTE pending. Placed cardiology consult for evaluation for possible clearance for the surgery. Present on Admission?: Yes History of Present Illness Chief Complaint: Right hip pain status post fall Primary Care Provider: Cory Celestin MD Patient is a 48 years old male with past medical history of type 1 diabetes mellitus, hypertension, CHF, end-stage renal disease, on dialysis Thursday and Thursday, dyslipidemia, gastroparesis, depression, presents to the emergency room for evaluation of the right hip pain after falling at home. Patient states that he was dizzy and he had chronic dizziness. He was admitted to the hospital last week for similar symptoms. Patient reports falling directly onto his right hip and complains of pain with ambulation. Movements are increasing pain. And the pain is extended to his back. Nothing relieves the pain. Patient denies head injury, fever chills chest pain shortness of breath abdominal pain frequency urgency dysuria hematuria hematemesis melena syncope near syncope. Patient has some abrasion on his right hand. His tetanus immunization is up-to-date. Patient reports discomfort 8 out of 10. Labs are reviewed: Which shows white blood cell count of 18.56 which is significantly increased increased in comparison to February 04 when they were 10.58. Hemoglobin 13.1 hematocrit 39.4 platelets 287. 135, potassium 4.2, chloride 97, anion gap 7, BUN 41, creatinine 4.91 GFR 12.9, glucose 120, calcium 8.3 AST 19 ALT 26 alkaline phosphatase 87, BNP 18901. MRI findings: Acute nondisplaced intratrochanteric fracture of the right femur with reactive bone marrow and adjacent soft tissue edema. Trace right hip joint effusion. Bone infarcts about the bilateral femoral shaft. Allergies Allergy/AdvReac Type Severity Reaction Status Date / Time shellfish derived Allergy Severe anaphylaxis Verified 02/10/19 12:11 codeine Allergy Intermediate Hives Verified 02/10/19 12:11 promethazine Allergy Intermediate itchy/hives Verified 02/10/19 12:11 Home Medications Home Medications Medication Instructions Recorded Confirmed Type [place] Caps 1 cap PO QAM 12/19/18 02/10/19 History calcium acetate 667 mg PO TIDM MDD 7 CAPSULES/DAY 12/19/18 02/10/19 History cholecalciferol (vitamin D3) 2,000 unit PO QAM 12/23/18 02/10/19 History [Vitamin D3] famotidine 20 mg PO QAM #30 tab 12/23/18 02/10/19 Rx metoclopramide HCl 5 mg PO TID 12/23/18 02/10/19 History sertraline 200 mg PO QAM #60 tab 12/28/18 02/10/19 Rx atorvastatin 10 mg tablet 10 mg PO QAM tab 01/06/19 02/10/19 History prochlorperazine 25 mg rectal 25 mg [place] BID PRN ea 01/06/19 02/10/19 History suppository ondansetron HCl 4 mg tablet 4 mg PO TID PRN 01/12/19 02/10/19 History Marj Mayers U-100 Insulin 13 units SQ DAILY@0930 01/31/19 02/10/19 History aprepitant 80 mg PO WK 01/31/19 02/10/19 History bupropion HCl 100 mg PO QAM 01/31/19 02/10/19 History insulin lispro [Admelog SoloStar See Rx Instructions SUBCUT DAILY 01/31/19 02/10/19 History U-100 Insulin] PRN amlodipine 10 mg tablet 10 mg PO DAILY tab 02/04/19 02/10/19 History carvedilol 3.125 mg PO BID #60 tab 02/04/19 02/10/19 Rx lorazepam [Ativan] 0.5 mg PO UD PRN 02/10/19 02/10/19 History Past Med/Surg History Medical History Acid reflux Hypertension Type I diabetes mellitus Insulin pump (diagnosed at age 31) Gastroparesis due to DM Depression Anemia Anxiety CAD (coronary artery disease) mild, non-obstructive CAD per 10/2018 cardiac cath ESRD (end stage renal disease) Hemodialysis M,W,F (Follows with Dr. Taylor Higgins; [facility]). Kidney stones Peripheral neuropathy Retinopathy due to secondary diabetes Surgical History History of appendectomy H/O shoulder surgery RIGHT History of hip surgery LEFT HIP ARTHROSCOPY History of cardiac cath 10/2018= no stents, no obstructive disease (at [facility]) History of lithotripsy Permanent central venous catheter in place Permacath Family History Grandfather Myocardial infarction Grandfather (Maternal) Family history of diabetes mellitus Uncle Myocardial infarction Social History Preferred Language: Thai Communication Ability: Effective Visual Impairment: No Limitations Hearing Ability: Normal Hog Sticker Required: No Beliefs That Will Affect Care: None marital status: Legally Current Living Situation: Parent current occupational status: unemployed Other Information That Helps Us Care for You: No Feels Safe at Home: Yes Safety Concerns: Feels Safe At This Time Smoking Status: Never smoker Tobacco Type: smokeless tobacco ; Second Hand Exposure: No ; Hx Alcohol Use: No Hx Substance Use: No Childhood Exposure to Second-Hand Smoke: Yes Dental Care, Regularly: No Physical Activity Frequency: 1-2 Times per Week Seatbelt Use: always Sunscreen Use: No Review of Systems Review of Systems: All systems reviewed & are unremarkable except as noted in HPI & below Physical Exam Constitutional: WD/WN, vitals as above well developed Eyes: PERRL, conjunctivae normal, anicteric sclerae ENMT: external ear and nose normal, oropharynx normal Neck: trachea midline, no thyromegaly Respiratory: normal respiratory effort, lungs clear to auscultation Cardiovascular: Heart Sounds: normal S1 and normal S2 Palpation: + palpable S3 Gastrointestinal (Abdomen): normal bowel sounds, soft, nontender, no hepatosplenomegaly Musculoskeletal: no cyanosis or clubbing, extremities motor strength 5/5 Skin: no rashes, warm and dry Neurologic: patellar DTR's 2+ bilat, sensation intact Psychiatric: A+Ox3, euthymic affect Genitourinary: Patient still produces some urine Lymphatic: no cervical or axillary lymphadenopathy Results & Data Vital Signs (Past 12 Hours) Vital Signs Temp Pulse Pulse Resp BP BP Pulse Ox 02/10/19 15:01 76 18 122/78 96 02/10/19 13:30 85 18 119/76 99 02/10/19 11:01 87 18 145/91 H 97 02/10/19 10:05 36.8 C 92 H 20 178/111 H 98 Code Status & VTE Plan Code Status Full code VTE Prophylaxis Plan VTE Prophylaxis will be ordered: No PG Care Time/CCT Total # of Minutes Spent Total Time Spent with Patient: Total time spent is greater than 50% in coordination of care (as documented) at patient's floor/unit and/or counseling patient: (1) Hypertension Hypertension type: unspecified Qualified Code(s): I10 - Essential (primary) hypertension (2) CHF (congestive heart failure) Heart failure chronicity: acute Heart failure type: unspecified Qualified Code(s): I50.9 - Heart failure, unspecified
--- NOTE | 2019-02-10 20:29 | Pharmacy Report ---
Glycemic Control Consultation - Date of Service February 10, 2019 - Scope Scope: Glycemic Pharmacist consulted by Dr Collier on 02/10 for glycemic control and to write orders per [facility] inpatient glycemic control protocol - Objective Weight: 58.7 kg Accuchecks BSG (last 24hrs): 02/10/19 02/10/19 02/10/19 14:28 15:36 17:03 Glucose 120 H POC Glucose 157 H 87 02/10/19 18:18 Glucose POC Glucose 104 H Laboratory Data (last 24hrs): 02/10/19 15:36 Potassium 4.2 Carbon Dioxide 31 Anion Gap 7.0 Creatinine 4.91 H* Est Cr Clr Drug Dosing 15.3 - Recent Pertinent Medications Outpatient Anti-diabetic Regimen: * Basaglar 13 units daily * Admelog using CR 1:10 + SS * A1c - Patient's A1c likely somewhat unreliable in ESRD patients d/t interactions between the A1c analyzing technique and high levels of urea in ESRD, reduced RBC life span, iron deficiency anemia, and EPO administration. HbA1c > 7.5% in ESRD patient may overestimate the extent of hyperglycemia in ESRD patients. Risk Factors for Insulin Resistance/Sensitivity: * Diet: type 1 diabetes -> will be made NPO overnight - Assessment & Plan Assessment & Plan: ASSESSMENT: * Mr. De Los Santos has been admitted for a hip fracture s/p fall. He is a brittle type 1 diabetic, well known to the pharmacy glycemic service. He is typically managed with basal/bolus insulin in the form of Lantus + Novolog but tends to be quite labile due to his gastroparesis and ESRD. On the day prior to his last discharge, we had trialed moving to Regular insulin only (4 units q6h) to manage basal + prandial + correctional needs. Other than an initial low after Novolog administration as well, BSGs looked to be well controlled by discharge. Will plan to trial this again, especially since patient currently with reduced po intake and will be NPO after midnight tonight. PLAN FOR INPATIENT GLYCEMIC CONTROL: * Basal + prandial insulin * Regular 2 units q6h - Starting with this lower dose d/t patient already receiving Lantus 13 units this AM and will be NPO after midnight * Correctional insulin * Regular per scale Q6hrs * Goal Range: Low 100 mg/dL - High 150 mg/dL * Correction Factor: 30 mg/dL/unit * Please note that the plan above was derived based on current level of insulin resistance and hospital stress. These recommendations are appropriate for inpatient admission only. Plan of care upon discharge will need to be reassessed to avoid potential outpatient hypo/hyperglycemia. Thank you.
[2019-02-10] MEDS ORDERED: CARVEDILOL 3.125 MG TAB PO SCH (21:00)
[2019-02-10] MEDS ORDERED: fentaNYL 25 MCG/HR TDSY TD SCH (21:13)
[2019-02-10] MEDS: HYDROmorphone INJ 0.5 MG/0.5 ML SYR IV PRN (22:21)
[2019-02-10] MEDS: cefTRIAXone SODIUM 1,000 MG/50 ML BAG IV SCH (22:21)
[2019-02-10] MEDS ORDERED: LACTATED RINGER'S 250 ML IV ONE (22:44)
[2019-02-11] MEDS ORDERED: CHECK FENTANYL PATCH PLACEMENT SCH
[2019-02-11] MEDS: INSULIN HUMAN REGULAR SC SCH ×9 (01:09→20:19)
[2019-02-11] MEDS: HYDROmorphone INJ 0.5 MG/0.5 ML SYR IV PRN ×3 (03:26→14:39)
[2019-02-11] MEDS: DEXTROSE 50% 50 ML SYRINGE IV PRN ×2 (04:16→19:20)
[2019-02-11] MEDS ORDERED: HEPARIN SOD (PORCINE) 1000 UNIT/ML 10 ML VIAL IV ONE (07:59)
[2019-02-11] MEDS ORDERED: SODIUM CHLORIDE 0.9% 1000ML 1,000 ML IV PRN (07:59)
[2019-02-11 08:03] LABS: Partial Thromboplastin Time 25.9 Seconds (21.0-31.0); Prothrombin Time 10.2 Seconds (9.0-12.0)
[2019-02-11] MEDS: CALCIUM ACETATE 667 MG CAP PO SCH ×3 (08:22→17:10)
[2019-02-11] MEDS: METOCLOPRAMIDE HCL 5 MG TABLET PO SCH ×3 (08:22→17:10)
[2019-02-11] MEDS: NEPHROCAPS PO SCH (08:34)
[2019-02-11] MEDS: CHOLECALCIFEROL 1,000 UNITS TAB PO SCH (08:34)
[2019-02-11] MEDS: ATORVASTATIN 10 MG TAB PO SCH (08:34)
[2019-02-11] MEDS: FAMOTIDINE 20 MG TAB PO SCH (08:34)
[2019-02-11] MEDS: SERTRALINE HCL 100 MG TABLET PO SCH (08:35)
[2019-02-11] MEDS: BuPROPion SR 100 MG TABCR PO SCH (08:35)
[2019-02-11] MEDS ORDERED: AMLODIPINE BESYLATE 5 MG TAB PO SCH (09:00)
[2019-02-11] MEDS ORDERED: INSULIN GLARGINE SOLOSTAR 100 UNITS/ML 3 ML PEN SQ SCH (09:30)
--- NOTE | 2019-02-11 11:04 | Pharmacy Report ---
Glycemic Control Progress Note - Date of Service February 11, 2019 - Scope Glycemic Pharmacist consulted for glycemic control to write orders per [facility] inpatient glycemic control protocol. - Objective Accuchecks BSG(last 24 hours):: 02/10/19 02/10/19 02/10/19 14:28 15:36 17:03 Glucose 120 H POC Glucose 157 H 87 02/10/19 02/10/19 02/11/19 18:18 21:26 00:29 Glucose POC Glucose 104 H 89 79 02/11/19 02/11/19 02/11/19 04:07 04:10 04:32 Glucose POC Glucose 41 L* 43 L* 169 H 02/11/19 06:10 Glucose POC Glucose 109 H - Recent Pertinent Medications The patient is currently receiving: * Basal insulin: REGULAR INSULIN 2 UNITS Q6 HOURS * Correctional Insulin: Novolog Correction per scale ACHS Goal Range: Low 100 mg/dL - High 150 mg/dL Correction Factor: 30 mg/dL/unit * Prandial insulin: Per carb ratio of 1 unit per --- grams CHO consumed - Outpatient Anti-Diabetic Meds Basaglar 13 units daily Admelog CR of 1 unit per 10 grams of carbohydrates - Assessment & Plan ASSESSMENT: * See progress note from 02/10/19 for more background info, in short: * Pt receiving SQ basal bolus insulin regimen for hyperglycemia secondary to baseline DM (outpatient regimen on hold) and stress (currently NPO for hip surgery) * Patient is currently receiving an average of 2 units of insulin per day * 13 units of basal insulin (received 13 units of basal insulin yesterday at home) * 2 units of prandial/correctional insulin * BSGs ranging 79 - 120 mg/dl over the past 24hrs * Changes needed to insulin regimen: * AM Fasting BSG = 109 mg/dl. This is in goal range for patient based on inpatient targets and co-morbidities. The patient had a serious hypoglycemic episode last night (BSG = 49 mg/dL) --- he refused his regular insulin this morning. Regular insulin was chosen due to patient's difficulty controlling while inpatient. * Post-prandial BSGs are okay. Patient's blood sugar at noon was 90 mg/dL. Belkis Rowe contacted since patient is still NPO. He requires insulin as he is a type 1 and could enter into DKA without insulin. Nervous to give insulin with blood sugar of 90 mg/dL. Therefore start D10 @ 15 cc/hr to provide a small amount of dextrose plus regular insulin. * Patient going to surgery tonight for hip fracture. If given steroids during surgery, start insulin infusion if okay with hospitalist. PLAN FOR INPATIENT GLYCEMIC CONTROL: * Continuing Regular insulin 2 units Q6 while NPO * Continuing correction factor to 30 mg/dl/unit * Continuing goal range to Low 110 mg/dL - High 150 mg/dL RECOMMENDATIONS FOR DISCHARGE: * follow-up with endocrinology * Please note that the plan above was derived based on current level of insulin resistance and hospital stress. These recommendations are appropriate for inpatient admission only. Plan of care upon discharge will need to be reassessed to avoid potential outpatient hypo/hyperglycemia. Thank you.
--- NOTE | 2019-02-11 12:00 | Hospitalist Progress Note ---
Date of Service February 11, 2019 Assessment & Plan (1) Closed intertrochanteric fracture of right hip: Pain management Continue ceftriaxone for possible urinary tract infection, patient still produces some urine Elevated white blood cell count could be due to intratrochanteric fracture as r esult of the stress related to the injury If urine analysis normal would stop ceftriaxone. No other source of infection. [facility] consulted BNP 35,000, most likely related to CHF as well as end-stage renal disease and poor clearance. Pending TTE Due for dialysis today Consulted nephrology Patient denies any chest pain or sob. He generally has good exercise tolerance, walks regularly, can ascend a flight of stairs without becoming sob. Electrolytes are wnl, cxr without acute process. RCRI is 10.1%. Awaiting cardiology consult for further risk stratification. (2) End stage renal disease on dialysis: Dialysis Thursday and Thursday. Patient is due dialysis tomorrow. Nephrology consulted (3) DM type 1 (diabetes mellitus, type 1): BSG achs, glycemic control per pharmacy (4) Hypertension: Hold carvedilol and amlodipine since blood pressure is below 100. Restart when blood pressure improves. (5) CHF (congestive heart failure): Chest x-ray did not show pulmonary edema. BNP most likely elevated due to end-stage renal disease. TTE pending. Placed cardiology consult for evaluation for possible clearance for the surgery. Most recent echo 10/24 showing mildly reduced EF 45% (6) DVT prophylaxis: SCDs, will start chemoprophylaxis this evening if not taken to surgery today Subjective Mr. De Los Santos is having pain in his hip but otherwise has no complaints. Review of Systems Review of Systems: All systems reviewed & are unremarkable except as noted in HPI & below Physical Exam Physical Exam: General: no distress Eyes: normal inspection, PERLL Respiratory: chest non tender, clear to auscultation, normal breath sounds, no respiratory distress, no accessory muscle use Cardiac: regular rate and rhythm, no rub or gallop, no murmur, no edema, no jvd GI/: active bowel sounds, no abd pain or tenderness, soft, non distended Extremities: normal range of motion, normal strength, non tender Neuro/Psych: alert and oriented x 3, normal mood and affect Skin: normal color, dry Results & Data Vital Signs (Past 12 Hours) Vital Signs Temp Pulse Pulse Resp BP Pulse Ox 02/11/19 07:52 36.6 C 75 18 109/69 97 02/11/19 03:30 36.8 C 74 17 105/68 98 02/11/19 00:01 73 PG Care Time/CCT Total # of Minutes Spent Total Time Spent with Patient: Total time spent is greater than 50% in coordination of care (as documented) at patient's floor/unit and/or counseling patient: (1) Hypertension Hypertension type: unspecified Qualified Code(s): I10 - Essential (primary) hypertension (2) CHF (congestive heart failure) Heart failure chronicity: acute Heart failure type: unspecified Qualified Code(s): I50.9 - Heart failure, unspecified
--- NOTE | 2019-02-11 13:40 | History & Physical Report ---
Date of Service February 11, 2019 Assessment & Plan (1) Closed intertrochanteric fracture of right hip: The patient has been NPO. Plan for right hip trochanteric nailing of the intertroch fx later today. Consent has been placed on the chart. All potential risks, benefits, complications, alternatives, and rehab have been discussed with the patient and he wishes to proceed. History of Present Illness Chief Complaint: right hip pain Primary Care Provider: Cory Celestin MD This is a patient who sustained a fall and landed on the right hip. He had difficulty with ambulation secondary to right hip pain. He came to [facility] where he was noted to have a right intertroch fx. He is being set up for surgical management. Allergies Allergy/AdvReac Type Severity Reaction Status Date / Time shellfish derived Allergy Severe anaphylaxis Verified 02/10/19 12:11 codeine Allergy Intermediate Hives Verified 02/10/19 12:11 promethazine Allergy Intermediate itchy/hives Verified 02/10/19 12:11 Home Medications Home Medications Medication Instructions Recorded Confirmed Type [place] Caps 1 cap PO QAM 12/19/18 02/10/19 History calcium acetate 667 mg PO TIDM MDD 7 CAPSULES/DAY 12/19/18 02/10/19 History cholecalciferol (vitamin D3) 2,000 unit PO QAM 12/23/18 02/10/19 History [Vitamin D3] famotidine 20 mg PO QAM #30 tab 12/23/18 02/10/19 Rx metoclopramide HCl 5 mg PO TID 12/23/18 02/10/19 History sertraline 200 mg PO QAM #60 tab 12/28/18 02/10/19 Rx atorvastatin 10 mg tablet 10 mg PO QAM tab 01/06/19 02/10/19 History prochlorperazine 25 mg rectal 25 mg [place] BID PRN ea 01/06/19 02/10/19 History suppository ondansetron HCl 4 mg tablet 4 mg PO TID PRN 01/12/19 02/10/19 History Marj Mayers U-100 Insulin 13 units SQ DAILY@0930 01/31/19 02/10/19 History aprepitant 80 mg PO WK 01/31/19 02/10/19 History bupropion HCl 100 mg PO QAM 01/31/19 02/10/19 History insulin lispro [Admelog SoloStar See Rx Instructions SUBCUT DAILY 01/31/19 02/10/19 History U-100 Insulin] PRN amlodipine 10 mg tablet 10 mg PO DAILY tab 02/04/19 02/10/19 History carvedilol 3.125 mg PO BID #60 tab 02/04/19 02/10/19 Rx lorazepam [Ativan] 0.5 mg PO UD PRN 02/10/19 02/10/19 History Past Med/Surg History Medical History Acid reflux Hypertension Type I diabetes mellitus Insulin pump (diagnosed at age 31) Gastroparesis due to DM Depression Anemia Anxiety CAD (coronary artery disease) mild, non-obstructive CAD per 10/2018 cardiac cath ESRD (end stage renal disease) Hemodialysis M,W,F (Follows with Dr. Taylor Higgins; [facility]). Kidney stones Peripheral neuropathy Retinopathy due to secondary diabetes Surgical History History of appendectomy H/O shoulder surgery RIGHT History of hip surgery LEFT HIP ARTHROSCOPY History of cardiac cath 10/2018= no stents, no obstructive disease (at [facility]) History of lithotripsy Permanent central venous catheter in place Permacath Family History Grandfather Myocardial infarction Grandfather (Maternal) Family history of diabetes mellitus Uncle Myocardial infarction Social History Preferred Language: Polish Communication Ability: Effective Visual Impairment: No Limitations Hearing Ability: Normal Collections Rep Required: No Beliefs That Will Affect Care: None marital status: Current Living Situation: Parent current occupational status: unemployed Other Information That Helps Us Care for You: No Feels Safe at Home: Yes Safety Concerns: Feels Safe At This Time Smoking Status: Never smoker Tobacco Type: smokeless tobacco ; Second Hand Exposure: No ; Hx Alcohol Use: No Hx Substance Use: No Childhood Exposure to Second-Hand Smoke: Yes Dental Care, Regularly: No Physical Activity Frequency: 1-2 Times per Week Seatbelt Use: always Sunscreen Use: No Physical Exam Constitutional: + thin, cooperative and comfortable (lying comfortably in his bed during dialysis); no acute distress ENMT: external ear and nose normal, oropharynx normal Neck: trachea midline, no thyromegaly Respiratory: normal respiratory effort, lungs clear to auscultation Cardiovascular: Rate/Rhythm: regular rate and regular rhythm Gastrointestinal (Abdomen): normal bowel sounds, soft, nontender, no hepatosplenomegaly Musculoskeletal: Hip: + limited ROM of hip (right hip secondary to pain), + joint line tenderness (right greater troch and groin) and + log roll test positive (right hip); no skin erythema and no ecchymosis Skin: no rashes, warm and dry Psychiatric: A+Ox3, euthymic affect Lymphatic: no cervical or axillary lymphadenopathy Results & Data Vital Signs (Past 12 Hours) Vital Signs Temp Pulse Pulse Pulse Resp BP BP 02/11/19 13:20 73 82/52 L 02/11/19 13:00 74 83/58 L 02/11/19 12:40 79 83/54 L 02/11/19 12:20 74 99/58 L 02/11/19 12:00 73 87/58 L 02/11/19 11:40 73 86/56 L 02/11/19 11:20 72 79/59 L 02/11/19 11:00 74 91/67 L 02/11/19 10:44 36.9 C 78 02/11/19 07:52 36.6 C 75 18 109/69 02/11/19 03:30 36.8 C 74 17 105/68 Pulse Ox 02/11/19 13:20 02/11/19 13:00 02/11/19 12:40 02/11/19 12:20 02/11/19 12:00 02/11/19 11:40 02/11/19 11:20 02/11/19 11:00 02/11/19 10:44 02/11/19 07:52 97 02/11/19 03:30 98 Code Status & VTE Plan VTE Prophylaxis Plan VTE Prophylaxis will be ordered: No
[2019-02-11] MEDS ORDERED: DEXTROSE 10% 1,000 ML IV SCH (14:15)
[2019-02-11] MEDS: HEPARIN SOD (PORCINE) 1000 UNIT/ML 10 ML VIAL IV SCH ×2 (15:14→15:15)
[2019-02-11] MEDS ORDERED: SCOPOLAMINE 1.5 MG TDSY ONE (16:12)
[2019-02-11] MEDS ORDERED: BUPIVACAINE 0.5 % 5 MG/1 ML MPF 30ML VIAL ONE (16:15)
[2019-02-11] MEDS ORDERED: LIDOCAINE HCL 2% 2 ML VIAL/AMP(20MG/ML) INFIL ONE (16:28)
[2019-02-11] MEDS ORDERED: NEOSTIGMINE METHYLSULFATE 5 MG/5 ML SYR ONE (16:28)
[2019-02-11] MEDS ORDERED: GLYCOPYRROLATE 0.2 MG/ML VIAL ONE (16:28)
[2019-02-11] MEDS ORDERED: ONDANSETRON INJ 2 MG/ML 2 ML VIAL ONE ×2 (16:28→18:41)
[2019-02-11] MEDS ORDERED: fentaNYL citrate 100 MCG/2 ML VIAL ONE (16:28)
[2019-02-11] MEDS ORDERED: CISATRACURIUM BESYLATE IV SOLN 2 MG/ML 10 ML VIAL IV ONE (16:28)
[2019-02-11] MEDS ORDERED: PROPOFOL IV EMULSION 10 MG/ML 20 ML VIAL IV ONE (16:28)
--- NOTE | 2019-02-11 16:30 | History & Physical Bridge Note ---
Date of Service February 11, 2019 History & Physical Bridge Note I have examined the patient, reviewed the History & Physical and in the interval since the performance of the History & Physical I have noted the following changes of clinical significance: no changes noted
--- NOTE | 2019-02-11 17:30 | Nephrology Consultation ---
Date of Consultation February 11, 2019 Assessment & Plan (1) End stage renal disease on dialysis: on MWF HD via [facility] -tolerated HD today but only 500 ml UF d/t hypotension -his amlodipine is on hold and agree w/ same -next HD planned tentatively for 02/15 or as clinical status dictates; not ov erloaded on exam -recommend bmp, hgb at least every other day Present on Admission?: Yes (2) Closed intertrochanteric fracture of right hip: per ortho and admitting service Present on Admission?: Yes (3) Anemia due to end stage renal disease: above criteria for epo today -will check transferrin sat in am for mgt of future anemia Present on Admission?: Yes (4) Anxiety: just had crisis intervention called 48 hrs ago after dialysis; low threshold for psych consultation as inpatient and will need care coordination on this after d/c Present on Admission?: Yes History of Present Illness Reason for Consultation: ESRD on hemodialysis Requesting Physician: Dr Collier Attending Physician: Sergo Rey MD History of Present Illness 48 y/o M whom I 'm asked to see for dialysis care after he was admitted last evening for R hip fracture. He dialyzes under my care MWF at [facility] via [facility]; has maturing AVF. He has fairly severe depression and on 02/09 after dialysis staff called crisis to come to the dialysis unit to assess him. Psychiatric care was recommended as OP. He was going to [employer] yesterday and walking w/ his cane to enter when he fell w/ immediate shooting R hip pain. Other PMH includes DM1 w/ severely symptomatic gastroparesis, severe/ symptomati c anxiety and depression, htn, chronic systolic HF w/ EF today 35-40%, calcium oxalate nephrolithiasis. He has had multiple admissions here this summer, most recently 01/31-02/04 for N/V attributed to gastrparesis and anxiety. He is for OR today for hip frx repair. Allergies Allergy/AdvReac Type Severity Reaction Status Date / Time shellfish derived Allergy Severe anaphylaxis Verified 02/10/19 12:11 codeine Allergy Intermediate Hives Verified 02/10/19 12:11 promethazine Allergy Intermediate itchy/hives Verified 02/10/19 12:11 Home Medications Home Medications Medication Instructions Recorded Confirmed Type Swift Caps 1 cap PO QAM 12/19/18 02/10/19 History calcium acetate 667 mg PO TIDM MDD 7 CAPSULES/DAY 12/19/18 02/10/19 History cholecalciferol (vitamin D3) 2,000 unit PO QAM 12/23/18 02/10/19 History [Vitamin D3] famotidine 20 mg PO QAM #30 tab 12/23/18 02/10/19 Rx metoclopramide HCl 5 mg PO TID 12/23/18 02/10/19 History sertraline 200 mg PO QAM #60 tab 12/28/18 02/10/19 Rx atorvastatin 10 mg tablet 10 mg PO QAM tab 01/06/19 02/10/19 History prochlorperazine 25 mg rectal 25 mg [place] BID PRN ea 01/06/19 02/10/19 History suppository ondansetron HCl 4 mg tablet 4 mg PO TID PRN 01/12/19 02/10/19 History Basaglar KwikPen U-100 Insulin 13 units SQ DAILY@0930 01/31/19 02/10/19 History aprepitant 80 mg PO WK 01/31/19 02/10/19 History bupropion HCl 100 mg PO QAM 01/31/19 02/10/19 History insulin lispro [Admelog SoloStar See Rx Instructions SUBCUT DAILY 01/31/19 02/10/19 History U-100 Insulin] PRN amlodipine 10 mg tablet 10 mg PO DAILY tab 02/04/19 02/10/19 History carvedilol 3.125 mg PO BID #60 tab 02/04/19 02/10/19 Rx lorazepam [Ativan] 0.5 mg PO UD PRN 02/10/19 02/10/19 History Patient History Medical History Acid reflux Hypertension Type I diabetes mellitus Insulin pump (diagnosed at age 31) Gastroparesis due to DM Depression Anemia Anxiety CAD (coronary artery disease) mild, non-obstructive CAD per 10/2018 cardiac cath ESRD (end stage renal disease) Hemodialysis M,W,F (Follows with Dr. Taylor Higgins; [facility]). Kidney stones Peripheral neuropathy Retinopathy due to secondary diabetes Surgical History History of appendectomy H/O shoulder surgery RIGHT History of hip surgery LEFT HIP ARTHROSCOPY History of cardiac cath 10/2018= no stents, no obstructive disease (at [facility]) History of lithotripsy Permanent central venous catheter in place Permacath Family History Grandfather Myocardial infarction Grandfather (Maternal) Family history of diabetes mellitus Uncle Myocardial infarction Social History Preferred Language: Frisian Communication Ability: Effective Visual Impairment: No Limitations Hearing Ability: Normal 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 Beliefs That Will Affect Care: None marital status: Current Living Situation: Parent current occupational status: unemployed Other Information That Helps Us Care for You: No Feels Safe at Home: Yes Safety Concerns: Feels Safe At This Time Smoking Status: Never smoker Tobacco Type: smokeless tobacco ; Second Hand Exp osure: No ; Hx Alcohol Use: No Hx Substance Use: No Childhood Exposure to Second-Hand Smoke: Yes Dental Care, Regularly: No Physical Activity Frequency: 1-2 Times per Week Seatbelt Use: always Sunscreen Use: No Review of Systems Constitutional: + fatigue, + weakness and + weight loss Eyes: no worsening vision Ear, Nose, Mouth, Throat: no dry mouth Respiratory: no cough and no dyspnea Cardiovascular: no dyspnea on exertion, no palpitations and no edema Gastrointestinal: as per Subjective / HPI and + nausea (w/ dry heaves); no change in bowel habits Genitourinary: + problem reported (no change in chronic voiding habits) Musculoskeletal: severe hip pain Integumentary: no rash and no non-healing lesions Neurologic: + gait abnormality (uses cane he states per PT recs when out/ about ), + unsteadiness (chronic) and + dizziness Psychiatric: + behavioral changes, + depression, + anhedonia and + anxiety Endocrine: + fatigue Hematologic / Lymphatic: no easy bleeding Physical Exam Constitutional: well developed, + cachectic and cooperative on RA Eyes: EOM intact bilaterally ENMT: Ears: no external ear abnormality Nose: no external nose abnormality Mouth: + dry oral mucous membranes Neck: no nuchal rigidity Respiratory: normal respiratory effort Auscultation: lungs clear to auscultation bilaterally and + diminished lung sounds Cardiovascular: RRR, no murmur, no edema Extremities: + AV fistula (t/b undetectable as at previous exams) Gastrointestinal (Abdomen): Inspection/Auscultation: normal bowel sounds Percussion/Palpation: + abdomen tender and abdomen soft Musculoskeletal: Extremities: strength 5/5 throughout R hip sore Skin: no rashes, warm and dry Neurologic: spicer, fluent speech, no tremor Psychiatric: Orientation: alert and oriented x 3 Eye Contact: + fair eye contact Speech: normal rate/rhythm/volume of speech Affect: + depressed affect and + anxious affect Results & Data Vital Signs (Past 12 Hours) Vital Signs Temp Pulse Pulse Pulse Resp BP BP 02/11/19 15:52 37.1 C 87 16 106/71 02/11/19 15:08 36.6 C 82 18 105/65 02/11/19 14:40 36.9 C 77 126/77 02/11/19 14:20 68 79/42 L 02/11/19 14:00 60 83/40 L 02/11/19 13:40 74 77/51 L 02/11/19 13:20 73 82/52 L 02/11/19 13:00 74 83/58 L 02/11/19 12:40 79 83/54 L 02/11/19 12:20 74 99/58 L 02/11/19 12:00 73 87/58 L 02/11/19 11:40 73 86/56 L 02/11/19 11:20 72 79/59 L 02/11/19 11:00 74 91/67 L 02/11/19 10:44 36.9 C 78 02/11/19 07:52 36.6 C 75 18 109/69 Pulse Ox 02/11/19 15:52 100 02/11/19 15:08 97 02/11/19 14:40 02/11/19 14:20 02/11/19 14:00 02/11/19 13:40 02/11/19 13:20 02/11/19 13:00 02/11/19 12:40 02/11/19 12:20 02/11/19 12:00 02/11/19 11:40 02/11/19 11:20 02/11/19 11:00 02/11/19 10:44 02/11/19 07:52 97 Laboratory Results Abnormal lab results 02/10/19 02/11/19 02/11/19 Range/Units 18:18 04:07 04:10 POC Glucose 104 H 41 L* 43 L* (70-99) 02/11/19 02/11/19 Range/Units 04:32 06:10 POC Glucose 169 H 109 H (70-99)
[2019-02-11] MEDS ORDERED: PHENYLEPHRINE HCL 10 MG/ML VIAL ONE (17:34)
[2019-02-11] MEDS ORDERED: SUCCINYLCHOLINE CHLORIDE 20 MG/ML 10 ML VIAL ONE (17:34)
--- NOTE | 2019-02-11 18:02 | Fluoroscopy Report ---
INTRAOPERATIVE RADIOGRAPHS CLINICAL HISTORY: Open reduction and internal fixation of the right femur. Fluoroscopy time: 67 seconds. FINDINGS: 4 spot fluoroscopic views of the right proximal femur are correlated with radiographs dated 02/10/2019. Intertrochanteric and intramedullary nails have been placed transfixing a nondisplaced tro chanteric fracture. A single cortical lag screw transfixes the distal end of the intramedullary nail. The orthopedic hardware is intact. IMPRESSION: Intraoperative images from open reduction and internal fixation of the right femur. Electronically signed by: Dev Burden M.D. 02/11/2019 6:00 PM
--- NOTE | 2019-02-11 18:02 | Post Operative Brief Note ---
Immediate Post Op Note v1 Date of Surgery February 11, 2019 Pre & Post Diagnosis Operation Date: 02/11/19 09:20 Pre-Op Diagnosis: INTERTROCHANTERIC FRACTURE RIGHT HIP Post-Op Diagnosis: INTERTROCHANTERIC FRACTURE RIGHT HIP Procedure Operation Date: 02/11/19 09:20 Actual Procedures p Right hip open reduction internal fixation with intermedullary Trochanteric Nailing; Bone biopsy right proximal femur(Right) - Sean Luevano DO Surgeon Sean Luevano DO Pricer Bagger Robby Francisco PA-C Estimated Blood Loss 75 Findings Consistent with Post-Op Diagnosis Specimens Bone biopsy right proximal femur Anesthesia Type General Complications none Disposition Accompanied Patient To Recovery: No Disposition: Recovery Room Overlapping Procedure I was present for: the critical portions of procedure. I was immediately available: during the entire case.
[2019-02-11] MEDS ORDERED: ONDANSETRON INJ 2 MG/ML 2 ML VIAL IV STA (18:46)
--- NOTE | 2019-02-11 19:00 | Anesthesiology Progress Note ---
Date of Service February 11, 2019 Anesthesia Post Procedure Vital Signs Vital Signs: Temp Pulse Pulse Pulse Pulse Resp BP 02/11/19 18:55 75 16 02/11/19 18:45 36.6 C 78 16 02/11/19 18:35 78 14 02/11/19 18:25 80 14 02/11/19 18:15 76 14 02/11/19 18:06 36.7 C 75 17 02/11/19 15:52 37.1 C 87 16 02/11/19 15:08 36.6 C 82 18 02/11/19 14:40 36.9 C 77 02/11/19 14:20 68 79/42 L 02/11/19 14:00 60 83/40 L 02/11/19 13:40 74 77/51 L 02/11/19 13:20 73 82/52 L 02/11/19 13:00 74 83/58 L 02/11/19 12:40 79 83/54 L 02/11/19 12:20 74 99/58 L 02/11/19 12:00 73 87/58 L 02/11/19 11:40 73 86/56 L 02/11/19 11:20 72 79/59 L 02/11/19 11:00 74 91/67 L 02/11/19 10:44 36.9 C 78 02/11/19 07:52 36.6 C 75 18 02/11/19 03:30 36.8 C 74 17 02/11/19 00:01 73 02/10/19 23:06 36.7 C 69 17 02/10/19 22:20 75 02/10/19 21:05 36.7 C 71 16 02/10/19 20:13 02/10/19 19:42 36.9 C 72 20 BP Pulse Ox 02/11/19 18:55 116/69 100 02/11/19 18:45 106/67 96 02/11/19 18:35 101/69 100 02/11/19 18:25 95/64 L 100 02/11/19 18:15 94/70 L 100 02/11/19 18:06 100/60 100 02/11/19 15:52 106/71 100 02/11/19 15:08 105/65 97 02/11/19 14:40 126/77 02/11/19 14:20 02/11/19 14:00 02/11/19 13:40 02/11/19 13:20 02/11/19 13:00 02/11/19 12:40 02/11/19 12:20 02/11/19 12:00 02/11/19 11:40 02/11/19 11:20 02/11/19 11:00 02/11/19 10:44 02/11/19 07:52 109/69 97 02/11/19 03:30 105/68 98 02/11/19 00:01 02/10/19 23:06 100/64 97 02/10/19 22:20 89/54 L 02/10/19 21:05 79/53 L 97 02/10/19 20:13 82/60 L 02/10/19 19:42 81/55 L 96 Pain Intensity Right Hip: Pain Intensity: 5 Transfer of Care Handoff Completed per policy Notes Mental Status: alert / awake / arousable Patient Amnestic to Procedure: Yes Nausea / Vomiting: adequately controlled Pain: adequately controlled Airway Patency, RR, SpO2: stable & adequate BP & HR: stable & adequate Hydration State: stable & adequate Anesthetic Complications: no major complications apparent
[2019-02-11] MEDS ORDERED: NALOXONE HCL 0.4 MG/1 ML VIAL/CARP IV PRN (19:18)
[2019-02-11] MEDS ORDERED: HYDROmorphone INJ 0.5 MG/0.5 ML SYR IV PRN (19:18)
[2019-02-11] MEDS: CEFAZOLIN 1000MG 1,000 MG/7.5 ML SYR IV SCH (20:44)
[2019-02-11] MEDS: ENOXAPARIN INJ 30 MG/0.3 ML SYR SQ SCH (20:44)
[2019-02-11] MEDS: cefTRIAXone SODIUM 1,000 MG/50 ML BAG IV SCH (20:44)
--- NOTE | 2019-02-11 23:32 | XRay Report ---
RIGHT HIP 2 VIEWS CLINICAL HISTORY: Postoperative examination. FINDINGS: AP and crosstable lateral views of the right hip are compared to study dated 02/10/2019. Inte rtrochanteric and intramedullary nails have been placed in the right femur transfixing an intertrocha nteric fracture. The fracture is in near anatomic alignment. The orthopedic hardware appears intact. Fracture line is visualized in the intertrochanteric region on the crosstable lateral view. The visua lized right hemipelvis appears intact. Skin clips, subcutaneous gas, and soft tissue swelling are exp ected postoperative findings. Advanced atherosclerotic calcification is noted in the right femoral ar mega. IMPRESSION: Expected postoperative findings status post open reduction and internal fixation of a rig ht femoral fracture. Electronically signed by: Dev Burden M.D. 02/11/2019 11:31 PM
--- NOTE | 2019-02-11 23:34 | Operative Report ---
DATE OF OPERATION: 02/11/2019 PREOPERATIVE DIAGNOSIS: Right intertrochanteric hip fracture. POSTOPERATIVE DIAGNOSIS: Right intertrochanteric hip fracture. PROCEDURES: 1. Open reduction internal fixation, right intertrochanteric hip fracture with Synthes trochanteric nail, size 12 mm x 235 mm in length with an 11 mm titanium helical blade, 100 mm in length and a 5 mm x 38 mm locking screw. 2. Bone biopsy, right proximal femur. SURGEON: Sean Luevano DO COLORIST DYER: Robby Francisco PA-C, who was present for patient positioning, sterile prep and drape, management of retractors and instruments. He was present through the critical portions of the case including wound closure, application of sterile dressing and transport of the patient to recovery. ANESTHESIA: General with local. SPECIMENS: Bone biopsy, right proximal femur. DRAINS: None. COMPLICATIONS: None. BLOOD LOSS: 75 mL. PERTINENT HISTORY: This is a 48-year-old gentleman who sustained a fall on his right hip. He had immediate pain, difficulty ambulating. He was then taken to [facility] where he was evaluated. He had radiographs which demonstrated a greater trochanteric fracture; however, he had an MRI which then demonstrated an intertrochanteric hip fracture. The patient was then scheduled for surgery as indicated after medically stabilized. All potential risks, benefits, complications, alternatives, rehab, potential for incomplete relief of symptoms, need for further surgery, DVT, PE, , persistent pain, swelling, scarring, weakness, neurovascular injury, wound complications, hardware failure, nonunion, malunion, and bone fracture were discussed with the patient. The patient decided to proceed with procedure as indicated. DESCRIPTION OF PROCEDURE: The patient was transferred to the operative suite. The proper site was identified. The consent was reviewed, the patient was then administered sedation and spinal anesthetic. Once appropriate, the patient then transferred to the fracture table where the lower extremity was placed in fracture table traction and the nonoperative leg was placed in the well leg gallardo. All bony prominences were properly padded and protected. The padded post was placed in the peroneal and the patient was positioned appropriately. Next the left leg was placed on traction and reduction of the fracture was performed under fluoroscopic control. Next the operative hip was then sterilely prepped and draped in the usual fashion. Next a 10-blade scalpel incision was used to make an incision proximal to the greater trochanter. The incision was deep in the subcutaneous tissue and fascia and the tip of the greater trochanter was then palpated followed by placement of a guide pin under fluoroscopic control driven into the greater trochanter down to the level of the less trochanter. This was confirmed in AP and lateral projections followed by placement of the proximal reamer over the cannulated guide pin. Next the reamer was then removed using the soft tissue protector, which was also removed. Next the ball tip guide per was placed into the proximal femur under fluoroscopic control confirmed with AP and lateral fluoroscope projections. Next the trochanteric nail was then passed over the guide per into the femur, the guide per was removed and then under fluoroscopic control appropriate level of the femoral nail was then placed in AP projections. Bone material was collected from the proximal femur and passed off as specimen for pathology. Next the targeting device was then fixed to the driving handle and 10-blade scalpel incision was made in the lateral aspect of the thigh. Next the tissue protector and cannulated guide system was then passed into the soft tissue until it was securely fixed against a lateral aspect of the femoral cortex. This was also confirmed under C-arm. Next the guide pin for the spiral blade was driven into the lateral aspect of the femur confirming this with AP lateral projections until the guide pin was in the center of the femoral neck and head approximately 5 mm from the subcortical bone of the femur. Next the spiral blade was then measured and then the lateral cortex was then drilled with the cortex reamer followed by use of the triple reamer with the depth stop set at appropriate depth. In this case, a 12 mm x 235 mm in length with an 11 mm titanium helical blade was then inserted over the cannulated guide per under fluoroscopic control. This was seated appropriately then traction was reduced from the limb and the fracture was then gently compressed and then locked proximally with the flexible screwdriver. Next the spiral blade was then disengaged from its insertion handle, insertion handle was then removed and the guide pin was removed from the femoral neck and head. Next the lateral targeting arm was used to insert the distal locking screw. First a 10-blade scalpel incision was made in the lateral aspect of the thigh, captured drill sleeves were then tamped gently to the lateral aspect of the femoral cortex then the locking screw hole was then drilled, measured and then an appropriate length screw was placed to lock the distal aspect of the nail. Next targeting sleeves were then removed. The insertion arm was then removed from the nail and final x-rays were obtained in AP and lateral projections. All incisions were then copiously irrigated with sterile normal saline. The proximal gluteus fascia was then closed using interrupted #1 Vicryl, the dermis was closed using buried interrupted 2-0 Vicryl sutures in all three incisions and the skin was then closed using skin parminder. A sterile compressive dressing consisting of Xeroform gauze, sterile 4 x 4's and Tegaderm was applied. The patient was then awakened and taken to recovery in stable condition. I attest to the content of the Intraoperative Record and any orders documented therein. Any exception s are noted below.
[2019-02-12] MEDS: ONDANSETRON 4 MG TAB PO PRN ×2 (00:03→11:32)
[2019-02-12] MEDS: INSULIN HUMAN REGULAR SC SCH ×8 (00:04→18:05)
[2019-02-12] MEDS: CEFAZOLIN 1000MG 1,000 MG/7.5 ML SYR IV SCH (04:34)
[2019-02-12 07:45] LABS: Partial Thromboplastin Time 27.7 Seconds (21.0-31.0); Prothrombin Time 10.5 Seconds (9.0-12.0)
[2019-02-12 08:09] LABS: Iron 16 mcg/dl (35-175); Transferrin 122 mg/dl (200-360); Transferrin Percent Saturation 10 % (20-50)
--- NOTE | 2019-02-12 08:14 | Orthopedic Progress Note ---
Date of Service February 12, 2019 Assessment & Plan (1) Closed intertrochanteric fracture of right hip: 48 yo male stable POD #1 s/p right hip troch nail 1. Med management 2. DVT prophylaxis- Lovenox, SCDs 3. PT/OT 4. D/C planning- Subjective Pt resting in bed, nauseous, mild pain right hip Physical Exam Physical Exam: Dressing intact right hip, thigh soft, toes mobile Results & Data Vital Signs (Past 12 Hours) Vital Signs Temp Pulse Pulse Pulse Resp BP Pulse Ox 02/12/19 07:21 36.3 C L 83 16 130/72 100 02/12/19 03:48 36.8 C 91 H 19 111/68 99 02/12/19 00:00 81 02/11/19 22:43 36.7 C 80 16 112/67 100 02/11/19 21:43 36.5 C 79 16 117/71 100 02/11/19 20:43 36.6 C 78 18 114/70 100 Laboratory Results 02/12/19 02/12/19 02/12/19 Range/Units 07:17 07:17 06:00 PT 10.5 (9.0-12.0) Seconds INR 1.0 (0.9-1.1) APTT 27.7 (21.0-31.0) Seconds PTT Ratio 1.0 POC Glucose 145 H (70-99) Iron 16 L (35-175) mcg/dl Transferrin 122 L (200-360) mg/dl Transferrin % Sat 10 L (20-50) % 02/12/19 02/11/19 02/11/19 Range/Units 00:02 19:37 19:13 PT (9.0-12.0) Seconds INR (0.9-1.1) APTT (21.0-31.0) Seconds PTT Ratio POC Glucose 142 H 143 H 50 L* (70-99) Iron (35-175) mcg/dl Transferrin (200-360) mg/dl Transferrin % Sat (20-50) % 02/11/19 02/11/19 02/11/19 Range/Units 19:12 18:22 15:50 PT (9.0-12.0) Seconds INR (0.9-1.1) APTT (21.0-31.0) Seconds PTT Ratio POC Glucose 49 L* 45 L* 83 (70-99) Iron (35-175) mcg/dl Transferrin (200-360) mg/dl Transferrin % Sat (20-50) % 02/11/19 02/11/19 Range/Units 14:43 12:33 PT (9.0-12.0) Seconds INR (0.9-1.1) APTT (21.0-31.0) Seconds PTT Ratio POC Glucose 74 90 (70-99) Iron (35-175) mcg/dl Transferrin (200-360) mg/dl Transferrin % Sat (20-50) %
[2019-02-12 09:09] LABS: Basophils # (auto) 0.03 K/uL (0-0.2); Basophils % (auto) 0.2 %; Eosinophils # (auto) 0.05 K/uL (0-0.5); Eosinophils % (auto) 0.3 %; Hematocrit (blood only) 33.9 % (42-52); Hemoglobin 10.8 g/dL (14.0-18.0); Immature Granulocytes % (auto) 0.7 %; Lymphocytes # (auto) 1.11 K/uL (1.2-3.4); Lymphocytes % (auto) 7.3 %; Mean Corpuscular Hgb Conc 31.9 g/dL (32-36); Mean Corpuscular Volume 98.3 fL (80-100); Mean Platelet Volume 9.9 fL (7.4-10.4); Monocytes # (auto) 1.86 K/uL (0.11-0.59); Monocytes % (auto) 12.2 %; Neutrophils # (auto) 12.04 K/uL (1.4-6.5); Neutrophils % (auto) 79.3 %; Platelet Count 230 K/uL (130-400); RDW Coefficient of Variation 16.5 % (11.5-14.5); RDW Standard Deviation 59.2 fL (36.4-46.3); Red Blood Count 3.45 M/uL (4.7-6.1); White Blood Count 15.19 K/uL (4.8-10.8)
--- NOTE | 2019-02-12 09:45 | Pharmacy Report ---
Pharmacy Glycemic Short Note 2 - Date of Service February 12, 2019 - Glycemic Short BSG Results (Last 24 hours): 02/11/19 02/11/19 02/11/19 12:33 14:43 15:50 POC Glucose 90 74 83 02/11/19 02/11/19 02/11/19 18:22 19:12 19:13 POC Glucose 45 L* 49 L* 50 L* 02/11/19 02/12/19 02/12/19 19:37 00:02 06:00 POC Glucose 143 H 142 H 145 H OUTPATIENT ANTIDIABETIC REGIMEN: * Basaglar 13 units daily * Admelog using CR 1:10 + SS * A1c - Patient's A1c likely somewhat unreliable in ESRD patients d/t interactions between the A1c analyzing technique and high levels of urea in ESRD, reduced RBC life span, iron deficiency anemia, and EPO administration. HbA1c > 7.5% in ESRD patient may overestimate the extent of hyperglycemia in ESRD patients. ASSESSMENT: * POD#1 s/p hip fracture surgery. * Pt is a brittle type 1 diabetic well known to pharmacy from previous admissions/glycemic consults. * Typically, we dose him with Lantus + Novolog SQ basal bolus but he has dramatic BSG swings and fluctuations secondary to N/V. Last admission, we trialed using scheduled Regular insulin SQ Q6hrs instead of basal bolus to allow for easier real time adjustments. Continued this again on admission 02/10/19. * Pt with LOW BSG 9/6 over night - pt typically goes low overnight. Regular insulin + glargine given at home may have contributed to this low * may need to lower overnight regular insulin doses to 1 unit if hypoglycemic re-occurs * Pt with another LOW BSG 9/6 prior to dinner. Most likely resulted from HD. Pt typically goes low after HD. No regular insulin was given prior to HD and glargine should have worn off by then. * Will lower insulin doses the night prior to HD to prevent low after HD PLAN FOR INPATIENT GLYCEMIC CONTROL: * Basal insulin * Regular insulin 2 units SQ Q6hrs scheduled * This is also serving as prandial insulin since it is given with meals - regular insulin preferred with gastroparesis * Bolus insulin * NovoLog per scale ACHS or Q6hrs while NPO * Goal Range: Low 110 mg/dL - High 150 mg/dL * Correction Factor: 30 mg/dL/unit * Nutritional / Prandial insulin per carb ratio of 1 unit per -- grams CHO consumed
[2019-02-12 09:49] LABS: BUN Creatinine Ratio 5.9 (10-20); Calcium 7.6 mg/dl (8.5-10.1); Creatinine Clr Calc Pharmacy 14.8 ml/min; Est GFR (African American) 14.7; Est GFR (Non-African American) 12.7; Potassium 3.8 mmol/L (3.5-5.1)
[2019-02-12] MEDS: CALCIUM ACETATE 667 MG CAP PO SCH ×3 (10:34→16:31)
[2019-02-12] MEDS: ATORVASTATIN 10 MG TAB PO SCH (11:32)
[2019-02-12] MEDS: FAMOTIDINE 20 MG TAB PO SCH (11:32)
[2019-02-12] MEDS: FERROUS SULFATE 325 MG TAB PO SCH (11:32)
[2019-02-12] MEDS: NEPHROCAPS PO SCH (11:32)
[2019-02-12] MEDS: CHOLECALCIFEROL 1,000 UNITS TAB PO SCH (11:33)
[2019-02-12] MEDS: BuPROPion SR 100 MG TABCR PO SCH (11:33)
[2019-02-12] MEDS: SERTRALINE HCL 100 MG TABLET PO SCH (11:33)
[2019-02-12] MEDS: METOCLOPRAMIDE HCL 5 MG TABLET PO SCH ×3 (11:33→16:51)
[2019-02-12] MEDS: OXYCODONE HCL IR 5 MG TAB (IMMEDIATE RELEASE) PO PRN (13:33)
--- NOTE | 2019-02-12 14:46 | Hospitalist Progress Note ---
Date of Service February 12, 2019 Assessment & Plan (1) Closed intertrochanteric fracture of right hip: Pain management Continue ceftriaxone for possible urinary tract infection, patient still produces some urine - does not appear urine culture was able to be collected, previous hospital stay 02/03 without mixed bipin grown in culture. Will discontinue ceftriaxone tonight - will have had 3 days treatment Elevated white blood cell count could be due to intratrochanteric fracture as result of the stress related to the injury No other source of infection. [facility] consulted BNP 35,000 on admission - most likely related to CHF as well as end-stage renal disease and poor clearance. (2) End stage renal disease on dialysis: Dialysis Thursday and Thursday. Patient is due dialysis tomorrow. Nephrology consulted (3) DM type 1 (diabetes mellitus, type 1): BSG achs, glycemic control per pharmacy (4) Hypertension: Hold carvedilol and amlodipine since blood pressures running low normal (5) CHF (congestive heart failure): Systolic - Most recent echo 10/24 showing mildly reduced EF 45% - now EF with further mild reduction to 35% (6) DVT prophylaxis: SCDs, enoxaparin (7) Anxiety: and depression - severe consult psych Subjective Mr. De Los Santos reports pain is much improved since surgery. Nauseas this morning but resolved. No other complaints Review of Systems Review of Systems: All systems reviewed & are unremarkable except as noted in HPI & below Physical Exam Physical Exam: General: no distress Eyes: normal inspection, PERLL Respiratory: chest non tender, clear to auscultation, normal breath sounds, no respiratory distress, no accessory muscle use Cardiac: regular rate and rhythm, no rub or gallop, no murmur, no edema, no jvd GI/: active bowel sounds, no abd pain or tenderness, soft, non distended Extremities: normal range of motion, normal strength, non tender Neuro/Psych: alert and oriented x 3, normal mood and affect Skin: normal color, dry Results & Data Vital Signs (Past 12 Hours) Vital Signs Temp Pulse Pulse Pulse Resp BP Pulse Ox 02/12/19 11:12 36.9 C 84 18 122/74 100 02/12/19 08:00 83 02/12/19 07:21 36.3 C L 83 16 130/72 100 02/12/19 03:48 36.8 C 91 H 19 111/68 99 PG Care Time/CCT Total # of Minutes Spent Total Time Spent with Patient: Total time spent is greater than 50% in coordination of care (as documented) at patient's floor/unit and/or counseling patient: (1) Hypertension Hypertension type: unspecified Qualified Code(s): I10 - Essential (primary) hypertension (2) CHF (congestive heart failure) Heart failure chronicity: acute Heart failure type: unspecified Qualified Code(s): I50.9 - Heart failure, unspecified
--- NOTE | 2019-02-12 15:10 | Psychiatric Consultation ---
Date of Consultation February 12, 2019 Psych History Chief Complaint "[]" Psychiatry consult was cancelled by primary attending morning of Feb 12 2019 Allergies Allergy/AdvReac Type Severity Reaction Status Date / Time shellfish derived Allergy Severe anaphylaxis Verified 02/10/19 12:11 codeine Allergy Intermediate Hives Verified 02/10/19 12:11 promethazine Allergy Intermediate itchy/hives Verified 02/10/19 12:11 Home Medications Home Medications Medication Instructions Recorded Confirmed Type Garden Caps 1 cap PO QAM 12/19/18 02/10/19 History calcium acetate 667 mg PO TIDM MDD 7 CAPSULES/DAY 12/19/18 02/10/19 History cholecalciferol (vitamin D3) 2,000 unit PO QAM 12/23/18 02/10/19 History [Vitamin D3] famotidine 20 mg PO QAM #30 tab 12/23/18 02/10/19 Rx metoclopramide HCl 5 mg PO TID 12/23/18 02/10/19 History sertraline 200 mg PO QAM #60 tab 12/28/18 02/10/19 Rx atorvastatin 10 mg tablet 10 mg PO QAM tab 01/06/19 02/10/19 History prochlorperazine 25 mg rectal 25 mg ME BID PRN ea 01/06/19 02/10/19 History suppository ondansetron HCl 4 mg tablet 4 mg PO TID PRN 01/12/19 02/10/19 History Basaglar KwikPen U-100 Insulin 13 units SQ DAILY@0930 01/31/19 02/10/19 History aprepitant 80 mg PO WK 01/31/19 02/10/19 History bupropion HCl 100 mg PO QAM 01/31/19 02/10/19 History insulin lispro [Admelog SoloStar See Rx Instructions SUBCUT DAILY 01/31/19 02/10/19 History U-100 Insulin] PRN amlodipine 10 mg tablet 10 mg PO DAILY tab 02/04/19 02/10/19 History carvedilol 3.125 mg PO BID #60 tab 02/04/19 02/10/19 Rx lorazepam [Ativan] 0.5 mg PO UD PRN 02/10/19 02/10/19 History Personal History Beliefs That Will Affect Care: None Patient History Medical History Acid reflux Hypertension Type I diabetes mellitus Insulin pump (diagnosed at age 31) Gastroparesis due to DM Depression Anemia Anxiety CAD (coronary artery disease) mild, non-obstructive CAD per 10/2018 cardiac cath ESRD (end stage renal disease) Hemodialysis M,W,F (Follows with Dr. Taylor Higgins; [facility]). Kidney stones Peripheral neuropathy Retinopathy due to secondary diabetes Surgical History History of appendectomy H/O shoulder surgery RIGHT History of hip surgery LEFT HIP ARTHROSCOPY History of cardiac cath 10/2018= no stents, no obstructive disease (at [facility]) History of lithotripsy Permanent central venous catheter in place Permacath Family History Grandfather Myocardial infarction Grandfather (Maternal) Family history of diabetes mellitus Uncle Myocardial infarction Social History Preferred Language: Gambian Communication Ability: Effective Visual Impairment: No Limitations Hearing Ability: Normal 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 Beliefs That Will Affect Care: None marital status: Current Living Situation: Parent current occupational status: unemployed Other Information That Helps Us Care for You: No Feels Safe at Home: Yes Safety Concerns: Feels Safe At This Time Smoking Status: Never smoker Tobacco Type: smokeless tobacco ; Second Hand Exposure: No ; Hx Alcohol Use: No Hx Substance Use: No Childhood Exposure to Second-Hand Smoke: Yes Dental Care, Regularly: No Physical Activity Frequency: 1-2 Times per Week Seatbelt Use: always Sunscreen Use: No Physical Exam Vital Signs (Past 24 Hours): Last Vital Signs Temp 36.9 C 02/12/19 11:12 Pulse 84 02/12/19 11:12 Resp 18 02/12/19 11:12 BP 122/74 02/12/19 11:12 Pulse Ox 100 02/12/19 11:12 Results & Data Medications Administered Aprepitant (Emend) 80 mg PO Th@0900 JACKI Stop: 03/12/19 18:29 Last Admin: 02/10/19 18:17 Dose: 80 mg Documented by: [id number] Atorvastatin Calcium [facility]) [facility] Stop: 03/13/19 08:59 Last Admin: 02/12/19 11:32 Dose: 10 mg Documented by: [id number] Admin: 02/11/19 08:34 Dose: Not Given Documented by: [id number] Bupropion HCl (Wellbutrin-Sr) 100 [facility] Stop: 03/13/19 08:59 Last Admin: 02/12/19 11:33 Dose: 100 mg Documented by: [id number] Admin: 02/11/19 08:35 Dose: Not Given Documented by: [id number] Calcium Acetate (Phoslo) 667 [facility] Stop: 03/12/19 16:59 Last Admin: 02/12/19 13:25 Dose: Not Given Documented by: [id number] Admin: 02/12/19 10:34 Dose: Not Given Documented by: [id number] Admin: 02/11/19 17:10 Dose: Not Given Documented by: [id number] Admin: 02/11/19 13:05 Dose: Not Given Documented by: [id number] Admin: 02/11/19 08:22 Dose: Not Given Documented by: [id number] Admin: 02/10/19 18:16 Dose: Not Given Documented by: [id number] Dextrose (Dextrose 50%) 25 - 50 ml IV UD PRN; Protocol PRN Reason: Hypoglycemia Protocol Stop: 03/12/19 17:14 Last Admin: 02/11/19 19:20 Dose: 50 ml Documented by: [id number] Admin: 02/11/19 04:16 Dose: 50 ml Documented by: [id number] Enoxaparin Sodium (Lovenox) 30 mg SQ Q24H JACKI Stop: 03/13/19 20:59 Last Admin: 02/11/19 20:44 Dose: 30 mg Documented by: [id number] Famotidine (Pepcid) [facility] Stop: 03/13/19 08:59 Last Admin: 02/12/19 11:32 Dose: 20 mg Documented by: [id number] Admin: 02/11/19 08:34 Dose: Not Given Documented by: [id number] Ferrous Sulfate (Feosol) 325 mg PO QAM [facility] Stop: 03/14/19 10:29 Last Admin: 02/12/19 11:32 Dose: 325 mg Documented by: [id number] Ceftriaxone Sodium (Rocephin) 1,000 mg in 50 mls @ 100 mls/hr IV DAILY@2000 JACKI; Protocol Stop: 02/12/19 19:59 Last Infusion: 02/11/19 21:45 Dose: 0 mls/hr Documented by: [id number] Admin: 02/11/19 20:44 Dose: 100 mls/hr Documented by: [id number] Infusion: 02/10/19 23:31 Dose: 0 mls/hr Documented by: [id number] Admin: 02/10/19 22:21 Dose: 100 mls/hr Documented by: [id number] Insulin Human Regular (Novolin R) 0 units SC Q6 JACKI; Protocol Stop: 03/13/19 00:00 Last Admin: 02/12/19 13:27 Dose: Not Given Documented by: [id number] Admin: 02/12/19 06:38 Dose: Not Given Documented by: [id number] Admin: 02/12/19 00:04 Dose: Not Given Documented by: [id number] Admin: 02/11/19 20:19 Dose: Not Given Documented by: [id number] Admin: 02/11/19 13:05 Dose: Not Given Documented by: [id number] Admin: 02/11/19 06:48 Dose: Not Given Documented by: [id number] Admin: 02/11/19 01:10 Dose: Not Given Documented by: [id number] Insulin Human Regular (Novolin R) 2 units SC Q6 JACKI Stop: 03/13/19 14:29 Last Admin: 02/12/19 13:30 Dose: 2 units Documented by: [id number] Cosigned by: [id number] Admin: 02/12/19 06:38 Dose: 2 units Documented by: [id number] Cosigned by: [id number] Admin: 02/12/19 00:04 Dose: 2 units Documented by: [id number] Cosigned by: [id number] Admin: 02/11/19 20:19 Dose: Not Given Documented by: [id number] Admin: 02/11/19 15:20 Dose: 2 units Documented by: [id number] Cosigned by: [id number] Lorazepam (Ativan) 0.5 mg PO DAILY PRN PRN Reason: Anxiety Stop: 03/12/19 16:53 Last Admin: 02/11/19 09:46 Dose: 0.5 mg Documented by: [id number] Metoclopramide HCl (Reglan) 5 mg PO AC [facility] Stop: 03/12/19 16:59 Last Admin: 02/12/19 13:47 Dose: Not Given Documented by: [id number] Admin: 02/12/19 11:33 Dose: 5 mg Documented by: [id number] Admin: 02/11/19 17:10 Dose: Not Given Documented by: [id number] Admin: 02/11/19 12:39 Dose: Not Given Documented by: [id number] Admin: 02/11/19 08:22 Dose: Not Given Documented by: [id number] Admin: 02/10/19 18:17 Dose: Not Given Documented by: [id number] Miscellaneous (Pending Order) 1 ea N/A DAILY@1000 [facility] Stop: 03/13/19 09:59 Last Admin: 02/12/19 10:34 Dose: Not Given Documented by: [id number] Admin: 02/11/19 12:38 Dose: Not Given Documented by: [id number] Ondansetron HCl (Zofran Tab) 4 mg PO TID PRN PRN Reason: Nausea And Vomiting Stop: 03/12/19 16:53 Last Admin: 02/12/19 11:32 Dose: 4 mg Documented by: [id number] Admin: 02/12/19 00:03 Dose: 4 mg Documented by: [id number] Oxycodone HCl (Roxicodone Immediate Rel) 5 - 10 mg PO Q4H PRN PRN Reason: Breakthrough Pain Stop: 02/25/19 19:17 Last Admin: 02/12/19 13:33 Dose: 10 mg Documented by: [id number] Sertraline [facility] (Zoloft) [facility] Stop: 03/13/19 08:59 Last Admin: 02/12/19 11:33 Dose: 200 mg Documented by: [id number] Admin: 02/11/19 08:35 Dose: Not Given Documented by: [id number] Vitamin B Complex/Folic Acid (Nephrocaps) 1 [facility] Stop: 03/13/19 08:59 Last Admin: 02/12/19 11:32 Dose: 1 cap Documented by: [id number] Admin: 02/11/19 08:34 Dose: Not Given Documented by: [id number] Vitamin D (Vitamin D3) 2,000 units [facility] Stop: 03/13/19 08:59 Last Admin: 02/12/19 11:33 Dose: 2,000 units Documented by: [id number] Admin: 02/11/19 08:34 Dose: Not Given Documented by: [id number]
[2019-02-12] MEDS: ENOXAPARIN INJ 30 MG/0.3 ML SYR SQ SCH (22:47)
[2019-02-13] MEDS: INSULIN HUMAN REGULAR SC SCH ×10 (00:26→23:13)
[2019-02-13] MEDS: ONDANSETRON 4 MG TAB PO PRN (03:19)
[2019-02-13] MEDS: PROCHLORPERAZINE 25 MG SUPP PR PRN ×2 (06:27→22:57)
--- NOTE | 2019-02-13 08:43 | Orthopedic Progress Note ---
Date of Service February 13, 2019 Assessment & Plan (1) Closed intertrochanteric fracture of right hip: 48 yo male stable POD #2 s/p right hip troch nail 1. Med management 2. DVT prophylaxis- Lovenox, SCDs 3. PT/OT 4. D/C planning- Subjective Pt resting in bed, nauseous, mild pain right hip Physical Exam Physical Exam: Dressing removed, incision C/D/I, thigh soft, toes mobile, NVI Results & Data Vital Signs (Past 12 Hours) Vital Signs Temp Pulse Pulse Resp BP Pulse Ox 02/13/19 07:27 36.9 C 89 16 145/70 H 98 02/13/19 03:27 36.8 C 95 H 22 154/74 H 98 02/13/19 00:17 37.2 C 91 H 16 155/74 H 98 Laboratory Results 02/13/19 02/13/19 02/12/19 Range/Units 06:19 00:22 21:43 WBC (4.8-10.8) K/uL RBC (4.7-6.1) M/uL Hgb (14.0-18.0) g/dL Hct (42-52) % MCV (80-100) fL MCH (25-34) pg MCHC (32-36) g/dL RDW Std Deviation (36.4-46.3) fL RDW Coeff of Kami (11.5-14.5) % Plt Count (130-400) K/uL MPV (7.4-10.4) fL Immature Gran % (Auto) % Neut % (Auto) % Lymph % (Auto) % [place] % (Auto) % Eos % (Auto) % Baso % (Auto) % Immature Gran # (Auto) (0.00-0.02) K/uL Neut # (Auto) (1.4-6.5) K/uL Lymph # (Auto) (1.2-3.4) K/uL [place] # (Auto) (0.11-0.59) K/uL Eos # (Auto) (0-0.5) K/uL Baso # (Auto) (0-0.2) K/uL Sodium (136-145) mmol/L Potassium (3.5-5.1) mmol/L Chloride (98-107) mmol/L Carbon Dioxide (21-32) mmol/L Anion Gap (3-11) BUN (7-18) mg/dl Creatinine (0.6-1.4) mg/dl Est Cr Clr Drug Dosing ml/min Est GFR ( Amer) Est GFR (Non-Af Amer) BUN/Creatinine Ratio (10-20) Glucose (70-99) mg/dl POC Glucose 197 H 204 H 131 H (70-99) Calcium (8.5-10.1) mg/dl 02/12/19 02/12/19 02/12/19 Range/Units 17:51 12:10 08:43 WBC (4.8-10.8) K/uL RBC (4.7-6.1) M/uL Hgb (14.0-18.0) g/dL Hct (42-52) % MCV (80-100) fL MCH (25-34) pg MCHC (32-36) g/dL RDW Std Deviation (36.4-46.3) fL RDW Coeff of Kami (11.5-14.5) % Plt Count (130-400) K/uL MPV (7.4-10.4) fL Immature Gran % (Auto) % Neut % (Auto) % Lymph % (Auto) % [place] % (Auto) % Eos % (Auto) % Baso % (Auto) % Immature Gran # (Auto) (0.00-0.02) K/uL Neut # (Auto) (1.4-6.5) K/uL Lymph # (Auto) (1.2-3.4) K/uL [place] # (Auto) (0.11-0.59) K/uL Eos # (Auto) (0-0.5) K/uL Baso # (Auto) (0-0.2) K/uL Sodium 138 (136-145) mmol/L Potassium 3.8 (3.5-5.1) mmol/L Chloride 102 (98-107) mmol/L Carbon Dioxide 28 (21-32) mmol/L Anion Gap 8.0 (3-11) BUN 30 H (7-18) mg/dl Creatinine 5.00 H* (0.6-1.4) mg/dl Est Cr Clr Drug Dosing 14.8 ml/min Est GFR ( Amer) 14.7 Est GFR (Non-Af Amer) 12.7 BUN/Creatinine Ratio 5.9 L (10-20) Glucose 123 H (70-99) mg/dl POC Glucose 82 127 H (70-99) Calcium 7.6 L (8.5-10.1) mg/dl 02/12/19 Range/Units 08:43 WBC 15.19 H (4.8-10.8) K/uL RBC 3.45 L (4.7-6.1) M/uL Hgb 10.8 L (14.0-18.0) g/dL Hct 33.9 L (42-52) % MCV 98.3 (80-100) fL MCH 31.3 (25-34) pg MCHC 31.9 L (32-36) g/dL RDW Std Deviation 59.2 H (36.4-46.3) fL RDW Coeff of Kami 16.5 H (11.5-14.5) % Plt Count 230 (130-400) K/uL MPV 9.9 (7.4-10.4) fL Immature Gran % (Auto) 0.7 % Neut % (Auto) 79.3 % Lymph % (Auto) 7.3 % [place] % (Auto) 12.2 % Eos % (Auto) 0.3 % Baso % (Auto) 0.2 % Immature Gran # (Auto) 0.10 H (0.00-0.02) K/uL Neut # (Auto) 12.04 H (1.4-6.5) K/uL Lymph # (Auto) 1.11 L (1.2-3.4) K/uL [place] # (Auto) 1.86 H (0.11-0.59) K/uL Eos # (Auto) 0.05 (0-0.5) K/uL Baso # (Auto) 0.03 (0-0.2) K/uL Sodium (136-145) mmol/L Potassium (3.5-5.1) mmol/L Chloride (98-107) mmol/L Carbon Dioxide (21-32) mmol/L Anion Gap (3-11) BUN (7-18) mg/dl Creatinine (0.6-1.4) mg/dl Est Cr Clr Drug Dosing ml/min Est GFR ( Amer) Est GFR (Non-Af Amer) BUN/Creatinine Ratio (10-20) Glucose (70-99) mg/dl POC Glucose (70-99) Calcium (8.5-10.1) mg/dl
[2019-02-13 09:05] LABS: Hematocrit (blood only) 30.5 % (42-52); Mean Corpuscular Hgb Conc 32.8 g/dL (32-36); Mean Corpuscular Volume 95.6 fL (80-100); Mean Platelet Volume 9.4 fL (7.4-10.4); Platelet Count 257 K/uL (130-400); RDW Coefficient of Variation 16.1 % (11.5-14.5); RDW Standard Deviation 56.9 fL (36.4-46.3); Red Blood Count 3.19 M/uL (4.7-6.1); White Blood Count 16.68 K/uL (4.8-10.8)
[2019-02-13 09:47] LABS: BUN Creatinine Ratio 6.6 (10-20); Calcium 7.6 mg/dl (8.5-10.1); Creatinine Clr Calc Pharmacy 11.3 ml/min; Est GFR (African American) 10.4; Est GFR (Non-African American) 8.9; Potassium 4.4 mmol/L (3.5-5.1)
--- NOTE | 2019-02-13 09:50 | Pharmacy Report ---
Pharmacy Glycemic Short Note 2 - Date of Service February 13, 2019 - Glycemic Short BSG Results (Last 24 hours): 02/12/19 02/12/19 02/12/19 08:43 12:10 17:51 Glucose 123 H POC Glucose 127 H 82 02/12/19 02/13/19 02/13/19 21:43 00:22 06:19 Glucose POC Glucose 131 H 204 H 197 H OUTPATIENT ANTIDIABETIC REGIMEN: * Basaglar 13 units daily * Admelog using CR 1:10 + SS * A1c - Patient's A1c likely somewhat unreliable in ESRD patients d/t interactions between the A1c analyzing technique and high levels of urea in ESRD, reduced RBC life span, iron deficiency anemia, and EPO administration. HbA1c > 7.5% in ESRD patient may overestimate the extent of hyperglycemia in ESRD patients. ASSESSMENT: * POD#2 s/p hip fracture surgery. * Pt is a brittle type 1 diabetic well known to pharmacy from previous admissions/glycemic consults. * Typically, we dose him with Lantus + Novolog SQ basal bolus but he has dramatic BSG swings and fluctuations secondary to N/V. Last admission, we trialed using scheduled Regular insulin SQ Q6hrs instead of basal bolus to allow for easier real time adjustments. Continued this again on admission 02/10/19. * Glycemic control has been excellent over the past 24hrs with current orders. Goal for Ivan is to maintain BSGs 100-250 mg/dl since he is so brittle. * His BSG dropped to 82 units prior to dinner- therefore, scheduled dosed of regular insulin (2 units) was held appropriately. Santhosh tends to drop his BSG overnight so scheduled dosing was reduced to 1 units SQ Q6hrs. Ironically, his BSG was a little elevated but the correctional insulin supplemented additional needs. * Will change his scheduled regular insulin dosing to 1-2 units based on BSG. No changes needed to his correctional insulin. PLAN FOR INPATIENT GLYCEMIC CONTROL: * Basal insulin * Regular insulin 1-2 units SQ Q6hrs scheduled * If BSG is below 110 mg/dl --> give 1 unit * If BSG is 110 mg/dl or above --> give 2 units * This is also serving as prandial insulin since it is given with meals - regular insulin preferred with gastroparesis * Bolus insulin * NovoLog per scale ACHS or Q6hrs while NPO * Goal Range: Low 110 mg/dL - High 150 mg/dL * Correction Factor: 30 mg/dL/unit * Nutritional / Prandial insulin per carb ratio of 1 unit per -- grams CHO consumed
[2019-02-13] MEDS: CALCIUM ACETATE 667 MG CAP PO SCH ×3 (09:53→17:47)
[2019-02-13] MEDS: METOCLOPRAMIDE HCL 5 MG TABLET PO SCH ×3 (09:53→17:55)
--- NOTE | 2019-02-13 11:12 | Hospitalist Progress Note ---
Date of Service February 13, 2019 Assessment & Plan (1) Closed intertrochanteric fracture of right hip: Secondary to fall due to dizziness which patient says he has had worked up in the past Pain management Possible urinary tract infection, patient still produces some urine - does not appear urine culture was able to be collected, previous hospital stay 02/03 without mixed bipin grown in culture. Will discontinue ceftriaxone tonight - will have had 3 days treatment Elevated white blood cell count could be due to intratrochanteric fracture as result of the stress related to the injury No other source of infection. [facility] consulted BNP 35,000 on admission - most likely related to CHF as well as end-stage renal disease and poor clearance. Orthostatics (2) End stage renal disease on dialysis: Dialysis Thursday and Thursday. Nephrology consulted (3) DM type 1 (diabetes mellitus, type 1): BSG achs, glycemic control per pharmacy (4) Anxiety: and depression - severe Per nephro: just had crisis intervention a couple days ago after dialysis; low threshold for psych consultation as inpatient and will need care coordination on this after d/c - held off on psych consult for now as patient had just been to his home psychiatrist prior to admit (5) Hypertension: Hold carvedilol and amlodipine since blood pressures running low normal (6) CHF (congestive heart failure): Systolic - Most recent echo 10/24 showing mildly reduced EF 45% - now EF with further mild reduction to 35% Not in exacerbation (7) DVT prophylaxis: SCDs, enoxaparin PT/OT evals - ok to return home at discharge Results & Data Vital Signs (Past 12 Hours) Vital Signs Temp Pulse Pulse Pulse Resp BP Pulse Ox 02/13/19 08:00 86 02/13/19 07:27 36.9 C 89 16 145/70 H 98 02/13/19 03:27 36.8 C 95 H 22 154/74 H 98 02/13/19 00:17 37.2 C 91 H 16 155/74 H 98 PG Care Time/CCT Total # of Minutes Spent Total Time Spent with Patient: Total time spent is greater than 50% in coordination of care (as documented) at patient's floor/unit and/or counseling patient: (1) Hypertension Hypertension type: unspecified Qualified Code(s): I10 - Essential (primary) hypertension (2) CHF (congestive heart failure) Heart failure chronicity: acute Heart failure type: unspecified Qualified Code(s): I50.9 - Heart failure, unspecified
[2019-02-13] MEDS: ATORVASTATIN 10 MG TAB PO SCH (12:32)
[2019-02-13] MEDS: BuPROPion SR 100 MG TABCR PO SCH (12:32)
[2019-02-13] MEDS: CHOLECALCIFEROL 1,000 UNITS TAB PO SCH (12:32)
[2019-02-13] MEDS: FAMOTIDINE 20 MG TAB PO SCH (12:33)
[2019-02-13] MEDS: FERROUS SULFATE 325 MG TAB PO SCH (12:33)
[2019-02-13] MEDS: NEPHROCAPS PO SCH (12:33)
[2019-02-13] MEDS: SERTRALINE HCL 100 MG TABLET PO SCH (12:33)
[2019-02-13] MEDS: ENOXAPARIN INJ 30 MG/0.3 ML SYR SQ SCH (20:31)
[2019-02-13] MEDS: OXYCODONE HCL IR 5 MG TAB (IMMEDIATE RELEASE) PO PRN (22:02)
[2019-02-14] MEDS: INSULIN HUMAN REGULAR SC SCH ×6 (06:27→18:03)
[2019-02-14 07:57] LABS: Hematocrit (blood only) 29.5 % (42-52); Hemoglobin 9.7 g/dL (14.0-18.0); Mean Corpuscular Hgb Conc 32.9 g/dL (32-36); Mean Corpuscular Volume 95.8 fL (80-100); Mean Platelet Volume 9.3 fL (7.4-10.4); Platelet Count 307 K/uL (130-400); RDW Standard Deviation 56.6 fL (36.4-46.3); Red Blood Count 3.08 M/uL (4.7-6.1); White Blood Count 16.37 K/uL (4.8-10.8)
[2019-02-14] MEDS: BuPROPion SR 100 MG TABCR PO SCH (07:57)
[2019-02-14] MEDS: NEPHROCAPS PO SCH (07:57)
[2019-02-14] MEDS: CHOLECALCIFEROL 1,000 UNITS TAB PO SCH (07:57)
[2019-02-14] MEDS: METOCLOPRAMIDE HCL 5 MG TABLET PO SCH ×3 (07:57→16:05)
[2019-02-14] MEDS: FAMOTIDINE 20 MG TAB PO SCH (07:58)
[2019-02-14] MEDS: SERTRALINE HCL 100 MG TABLET PO SCH (07:58)
[2019-02-14] MEDS: FERROUS SULFATE 325 MG TAB PO SCH (07:58)
[2019-02-14] MEDS: ONDANSETRON 4 MG TAB PO PRN (07:58)
[2019-02-14] MEDS: ATORVASTATIN 10 MG TAB PO SCH (07:58)
[2019-02-14] MEDS: OXYCODONE HCL IR 5 MG TAB (IMMEDIATE RELEASE) PO PRN (08:00)
[2019-02-14] MEDS ORDERED: HEPARIN SOD (PORCINE) 1000 UNIT/ML 10 ML VIAL IV ONE (08:15)
[2019-02-14] MEDS ORDERED: SODIUM CHLORIDE 0.9% 1000ML 1,000 ML IV PRN (08:15)
[2019-02-14] MEDS: CALCIUM ACETATE 667 MG CAP PO SCH ×3 (08:29→18:03)
[2019-02-14 09:14] LABS: BUN Creatinine Ratio 7.3 (10-20); Calcium 7.5 mg/dl (8.5-10.1); Creatinine Clr Calc Pharmacy 9.2 ml/min; Est GFR (African American) 8.4; Est GFR (Non-African American) 7.2; Potassium 4.5 mmol/L (3.5-5.1)
--- NOTE | 2019-02-14 10:53 | Orthopedic Progress Note ---
Date of Service February 14, 2019 Assessment & Plan (1) Closed intertrochanteric fracture of right hip: 48 yo male stable POD #3 s/p right hip troch nail 1. Med management 2. DVT prophylaxis- Lovenox, SCDs 3. PT/OT 4. D/C planning- per medicine. Ortho to sign off at this time and follow up in Dr. Luevano's office at 2 weeks post op. Supervising Physician Co-Signing Physician Notes Patient seen and examined, agree with above assessment and plan. Subjective Pain is controlled in the right hip. States he's been up walking a little bit. No other hip complaints. Physical Exam Constitutional: + thin, cooperative and comfortable (lying comfortably in his bed during dialysis); no acute distress ENMT: external ear and nose normal, oropharynx normal Neck: trachea midline, no thyromegaly Respiratory: normal respiratory effort, lungs clear to auscultation Cardiovascular: Rate/Rhythm: regular rate and regular rhythm Gastrointestinal (Abdomen): normal bowel sounds, soft, nontender, no hepatosplenomegaly Musculoskeletal: Hip: + surgical incision (Well approximated right hip incisions. Thigh is soft. ) and + limited ROM of hip; no deformity, no skin eryt colleen and no ecchymosis Skin: no rashes, warm and dry Psychiatric: A+Ox3, euthymic affect Lymphatic: no cervical or axillary lymphadenopathy Results & Data Vital Signs (Past 12 Hours) Vital Signs Temp Pulse Pulse Pulse Pulse Resp BP 02/14/19 10:40 82 121/70 02/14/19 10:20 83 97/74 L 02/14/19 10:00 82 115/72 02/14/19 09:40 85 124/72 02/14/19 09:20 81 158/81 H 02/14/19 09:15 36.9 C 89 89 153/90 H 02/14/19 07:00 36.3 C L 87 16 02/14/19 04:20 37.1 C 84 16 02/13/19 23:38 92 H 02/13/19 23:05 37.6 C H 92 H 16 BP Pulse Ox 02/14/19 10:40 02/14/19 10:20 02/14/19 10:00 02/14/19 09:40 02/14/19 09:20 02/14/19 09:15 02/14/19 07:00 149/78 H 95 02/14/19 04:20 146/78 H 96 02/13/19 23:38 02/13/19 23:05 178/87 H 97
[2019-02-14] MEDS ORDERED: EPOETIN ALFA 10,000 UNITS/ML VIAL IV SCH (11:00)
[2019-02-14] MEDS ORDERED: IRON SUCROSE 100 MG in SYRINGE 0 ML IV SCH (11:00)
[2019-02-14] MEDS: HEPARIN SOD (PORCINE) 1000 UNIT/ML 10 ML VIAL IV SCH (11:49)
[2019-02-14] MEDS: LORazepam 0.5 MG TAB SL SCH ×2 (16:05→21:33)
--- NOTE | 2019-02-14 17:18 | Nephrology Progress Note ---
Date of Service February 14, 2019 Assessment & Plan (1) End stage renal disease on dialysis: on MWF HD via [facility] -tolerated HD today but only 1000 ml UF -his amlodipine is on hold and agree w/ same -next HD planned tentatively for 02/17 or as clinical status dictates; not overloaded on exam -recommend bmp, hgb at least every other day (2) Closed intertrochanteric fracture of right hip: per ortho and admitting service > s/p OR (3) Anemia due to end stage renal disease: above criteria for epo today -low iron stores and getting venofer on HD (4) Anxiety: just had crisis intervention called 48 hrs prior to admission after dialysis; has not seen psych as OP; literally fell while walking in to that appt. -low threshold for psych consultation as inpatient and will need care coordination on this after d/c Subjective seen on rounds this am 0830; no sob, struggling w/ pain control b/c meds nauseate him; ongoing N; ate per RN who covered for weekend nearly nothing Review of Systems Review of Systems: All systems reviewed & are unremarkable except as noted in HPI & below Physical Exam Constitutional: well developed, + cachectic, + frail appearing and cooperative Eyes: EOM intact bilaterally ENMT: Ears: no external ear abnormality Nose: no external nose abnormality Mouth: + dry oral mucous membranes Neck: no nuchal rigidity Respiratory: normal respiratory effort Auscultation: lungs clear to auscultation bilaterally and + diminished lung sounds Cardiovascular: RRR, no murmur, no edema Extremities: + AV fistula (t/b undetectable as at previous exams) Gastrointestinal (Abdomen): Inspection/Auscultation: normal bowel sounds Percussion/Palpation: + abdomen tender and abdomen soft Musculoskeletal: Extremities: strength 5/5 throughout Skin: no rashes, warm and dry Neurologic: spicer, fluent speech, no tremor Psychiatric: Orientation: alert and oriented x 3 Eye Contact: + fair eye contact Speech: normal rate/rhythm/volume of speech Affect: + depressed affect and + anxious affect Results & Data Vital Signs (Past 12 Hours) Vital Signs Temp Pulse Pulse Pulse Resp BP BP 02/14/19 16:00 90 02/14/19 15:57 37.0 C 94 H 16 151/79 H 02/14/19 13:17 37.1 C 84 84 136/69 136/69 02/14/19 13:00 82 112/68 02/14/19 12:40 84 134/74 02/14/19 12:20 83 132/73 02/14/19 12:00 82 119/74 02/14/19 11:40 85 116/72 02/14/19 11:20 82 127/75 02/14/19 11:00 58 L 124/73 02/14/19 10:40 82 121/70 02/14/19 10:20 83 97/74 L 02/14/19 10:00 82 115/72 02/14/19 09:40 85 124/72 02/14/19 09:20 81 158/81 H 02/14/19 09:15 36.9 C 89 89 153/90 H 02/14/19 07:00 36.3 C L 87 16 149/78 H Pulse Ox 02/14/19 16:00 02/14/19 15:57 98 02/14/19 13:17 02/14/19 13:00 02/14/19 12:40 02/14/19 12:20 02/14/19 12:00 02/14/19 11:40 02/14/19 11:20 02/14/19 11:00 02/14/19 10:40 02/14/19 10:20 02/14/19 10:00 02/14/19 09:40 02/14/19 09:20 02/14/19 09:15 02/14/19 07:00 95 Laboratory Results 02/14/19 07:36 02/14/19 07:36
--- NOTE | 2019-02-14 21:04 | Hospitalist Progress Note ---
Date of Service February 14, 2019 Assessment & Plan (1) Closed intertrochanteric fracture of right hip: POD #3 s/p ORIF by Dr Luevano. stable, doing well from ortho standpoint. bone biopsy w/o signs of malignancy. presumably osteoporotic fracture in context of long-standing T1DM. check 25-OH vitamin D level in am. cont pain control. (2) End stage renal disease on dialysis: HD Thursday and Thursday. [facility] Nephrology assistance appreciated (3) DM type 1 (diabetes mellitus, type 1): glycemic control per pharmacy appreciate their assistance (4) Anxiety: severe, with concomitant depression on zoloft and wellbutrin ativan has worked well on past admission not ideal long-term for him but it helps his nausea/emesis scheduled 0.5mg BID psych consult (5) Hypertension: in light of depressed EF will resume coreg tomorrow (6) CHF (congestive heart failure): Systolic - Most recent echo 10/24 showing mildly reduced EF 45% - now EF with further mild reduction to 35% Not in exacerbation Resume coreg in am if BPs will allow (7) Depression: severe, MDD. will ask psych to see in light of recent crisis intervention call. cont zoloft cont wellbutrin NUMEROUS psychosocial stressors (8) Gastroparesis: severe, refractory to numerous meds tried in the last 1-2 years. follows with motility clinic at [place] [facility]. cont reglan ativan will help to a degree his anxiety makes his symptoms much worse (9) Severe protein-calorie malnutrition: has lost 20+ kg since August 2018. much of the weight loss is in context of severe gastroparesis, depression, advancing CKD/ESRD, potentially other issues. (10) DVT prophylaxis: lovenox 30mg daily PT/OT evals -- rehab recommended -- he is agreeable Subjective patient reports ongoing anxiety and ongoing nausea with emesis he has eaten very little since his surgery for the hip denies abd pain passing flatus had bowel movement yesterday apparently last week at hemodialysis he had a panic attack and was acting depressed HD staff called crisis intervention (psychiatry) on way to the psych office he fell in the parking lot leading to the hip fracture he is open to rehab for his hip fracture Review of Systems Constitutional: no fever and no chills Respiratory: no cough and no dyspnea Cardiovascular: no chest pain Gastrointestinal: no abdominal pain Physical Exam Constitutional: + thin; no acute distress ENMT: external ear and nose normal, oropharynx normal Mouth: + dry oral mucous membranes Respiratory: normal respiratory effort, lungs clear to auscultation Cardiovascular: Rate/Rhythm: regular rate and regular rhythm Heart Sounds: normal S1 and normal S2; no murmur Vessels: posterior tibial pulses present and dorsalis pedis pulses present; no JVD Extremities: no edema Gastrointestinal (Abdomen): normal bowel sounds, soft, nontender, no hepatosplenomegaly Skin: right upper chest HD catheter clean; right hip parminder clean Psychiatric: Orientation: alert and oriented x 3 Affect: + flat affect Results & Data Vital Signs (Past 12 Hours) Vital Signs Temp Pulse Pulse Pulse Pulse Resp BP 02/14/19 19:58 37.1 C 84 17 02/14/19 16:00 90 02/14/19 15:57 37.0 C 94 H 16 02/14/19 13:17 37.1 C 84 84 136/69 02/14/19 13:00 82 112/68 02/14/19 12:40 84 134/74 02/14/19 12:20 83 132/73 02/14/19 12:00 82 119/74 02/14/19 11:40 85 116/72 02/14/19 11:20 82 127/75 02/14/19 11:00 58 L 124/73 02/14/19 10:40 82 121/70 02/14/19 10:20 83 97/74 L 02/14/19 10:00 82 115/72 02/14/19 09:40 85 124/72 02/14/19 09:20 81 158/81 H 02/14/19 09:15 36.9 C 89 89 153/90 H BP Pulse Ox 02/14/19 19:58 136/73 94 02/14/19 16:00 02/14/19 15:57 151/79 H 98 02/14/19 13:17 136/69 02/14/19 13:00 02/14/19 12:40 02/14/19 12:20 02/14/19 12:00 02/14/19 11:40 02/14/19 11:20 02/14/19 11:00 02/14/19 10:40 02/14/19 10:20 02/14/19 10:00 02/14/19 09:40 02/14/19 09:20 02/14/19 09:15 Laboratory Results Laboratory Results - last 24 hr 02/13/19 02/14/19 02/14/19 23:08 06:14 06:26 WBC RBC Hgb Hct MCV MCH MCHC RDW Std Deviation RDW Coeff of Kami Plt Count MPV Sodium Potassium Chloride Carbon Dioxide Anion Gap BUN Creatinine Est Cr Clr Drug Dosing Est GFR ( Amer) Est GFR (Non-Af Amer) BUN/Creatinine Ratio Glucose POC Glucose 96 183 H 184 H Calcium 02/14/19 02/14/19 02/14/19 07:36 07:36 13:56 WBC 16.37 H RBC 3.08 L Hgb 9.7 L Hct 29.5 L MCV 95.8 MCH 31.5 MCHC 32.9 RDW Std Deviation 56.6 H RDW Coeff of Kami 16.0 H Plt Count 307 MPV 9.3 Sodium 130 L Potassium 4.5 Chloride 92 L Carbon Dioxide 21 Anion Gap 17.0 H BUN 58 H Creatinine 7.95 H* D Est Cr Clr Drug Dosing 9.2 Est GFR ( Amer) 8.4 Est GFR (Non-Af Amer) 7.2 BUN/Creatinine Ratio 7.3 L Glucose 161 H POC Glucose 131 H Calcium 7.5 L 02/14/19 16:10 WBC RBC Hgb Hct MCV MCH MCHC RDW Std Deviation RDW Coeff of Kami Plt Count MPV Sodium Potassium Chloride Carbon Dioxide Anion Gap BUN Creatinine Est Cr Clr Drug Dosing Est GFR ( Amer) Est GFR (Non-Af Amer) BUN/Creatinine Ratio Glucose POC Glucose 94 Calcium PG Care Time/CCT Total # of Minutes Spent Total Time Spent with Patient: Total time spent is greater than 50% in coordination of care (as documented) at patient's floor/unit and/or counseling patient: (1) Closed intertrochanteric fracture of right hip Encounter type: subsequent encounter Fracture alignment: nondisplaced Fracture healing: with routine healing Qualified Code(s): S72.144D - Nondisplaced intertrochanteric fracture of right femur, subsequent encounter for closed fracture with routine healing (2) DM type 1 (diabetes mellitus, type 1) Diabetes mellitus complication status: with kidney complications Diabetes mellitus complication detail: with chronic kidney disease Chronic kidney disease stage: on chronic dialysis Qualified Code(s): E10.22 - Type 1 diabetes mellitus with diabetic chronic kidney disease; N18.6 - End stage renal disease; Z99.2 - Dependence on renal dialysis (3) Hypertension Hypertension type: unspecified Qualified Code(s): I10 - Essential (primary) hypertension (4) CHF (congestive heart failure) Heart failure chronicity: acute Heart failure type: unspecified Qualified Code(s): I50.9 - Heart failure, unspecified (5) Depression Depression Type: other depression Qualified Code(s): F32.89 - Other specified depressive episodes
[2019-02-14] MEDS: ENOXAPARIN INJ 30 MG/0.3 ML SYR SQ SCH (21:34)
[2019-02-15] MEDS: INSULIN HUMAN REGULAR SC SCH ×10 (00:25→22:25)
[2019-02-15] MEDS: OXYCODONE HCL IR 5 MG TAB (IMMEDIATE RELEASE) PO PRN ×3 (03:24→22:26)
[2019-02-15] MEDS: ONDANSETRON 4 MG TAB PO PRN ×3 (03:43→22:29)
[2019-02-15 07:36] LABS: Hematocrit (blood only) 28.8 % (42-52); Hemoglobin 9.5 g/dL (14.0-18.0); Mean Corpuscular Volume 97.3 fL (80-100); Mean Platelet Volume 9.4 fL (7.4-10.4); Platelet Count 282 K/uL (130-400); RDW Coefficient of Variation 15.8 % (11.5-14.5); RDW Standard Deviation 55.8 fL (36.4-46.3); Red Blood Count 2.96 M/uL (4.7-6.1); White Blood Count 15.17 K/uL (4.8-10.8)
[2019-02-15] MEDS: SERTRALINE HCL 100 MG TABLET PO SCH (08:00)
[2019-02-15] MEDS: METOCLOPRAMIDE HCL 5 MG TABLET PO SCH ×3 (08:01→16:55)
[2019-02-15] MEDS: BuPROPion SR 100 MG TABCR PO SCH (08:01)
[2019-02-15] MEDS: ATORVASTATIN 10 MG TAB PO SCH (08:01)
[2019-02-15] MEDS: FERROUS SULFATE 325 MG TAB PO SCH (08:02)
[2019-02-15] MEDS: FAMOTIDINE 20 MG TAB PO SCH (08:02)
[2019-02-15] MEDS: CHOLECALCIFEROL 1,000 UNITS TAB PO SCH (08:02)
[2019-02-15] MEDS: NEPHROCAPS PO SCH (08:02)
[2019-02-15] MEDS: CALCIUM ACETATE 667 MG CAP PO SCH ×3 (08:03→16:55)
[2019-02-15] MEDS: LORazepam 0.5 MG TAB SL SCH (08:06)
[2019-02-15 08:16] LABS: BUN Creatinine Ratio 7.7 (10-20); Calcium 8.2 mg/dl (8.5-10.1); Creatinine Clr Calc Pharmacy 12.9 ml/min; Est GFR (African American) 12.7; Est GFR (Non-African American) 10.9; Potassium 4.1 mmol/L (3.5-5.1)
--- NOTE | 2019-02-15 15:41 | Pharmacy Report ---
Pharmacy Glycemic Short Note 2 - Date of Service February 15, 2019 - Glycemic Short BSG Results (Last 24 hours): 02/14/19 02/15/19 02/15/19 16:10 00:17 06:12 Glucose POC Glucose 94 232 H 145 H 02/15/19 02/15/19 07:00 11:37 Glucose 159 H POC Glucose 254 H OUTPATIENT ANTIDIABETIC REGIMEN: * Basaglar 13 units daily * Admelog using CR 1:10 + SS * A1c - Patient's A1c likely somewhat unreliable in ESRD patients d/t interactions between the A1c analyzing technique and high levels of urea in ESRD, reduced RBC life span, iron deficiency anemia, and EPO administration. HbA1c > 7.5% in ESRD patient may overestimate the extent of hyperglycemia in ESRD patients. ASSESSMENT: 02/15 * patient required a total of 12 units of insulin yesterday with relatively good BSGs despite receiving dialysis. Lunch BSG today is elevated however, is acceptable for now given very labile history. Of note patient is PO intake is very poor per nurse. Insulin needs may increase slightly if PO intake improve s. Will continue current regimen for now. 02/13 * POD#2 s/p hip fracture surgery. * Pt is a brittle type 1 diabetic well known to pharmacy from previous admissions/glycemic consults. * Typically, we dose him with Lantus + Novolog SQ basal bolus but he has dramatic BSG swings and fluctuations secondary to N/V. Last admission, we trialed using scheduled Regular insulin SQ Q6hrs instead of basal bolus to allow for easier real time adjustments. Continued this again on admission 02/10/19. * Glycemic control has been excellent over the past 24hrs with current orders. Goal for Ivan is to maintain BSGs 100-250 mg/dl since he is so brittle. * His BSG dropped to 82 units prior to dinner- therefore, scheduled dosed of regular insulin (2 units) was held appropriately. Pt tends to drop his BSG overnight so scheduled dosing was reduced to 1 units SQ Q6hrs. Ironically, his BSG was a little elevated but the correctional insulin supplemented additional needs. * Will change his scheduled regular insulin dosing to 1-2 units based on BSG. No changes needed to his correctional insulin. PLAN FOR INPATIENT GLYCEMIC CONTROL: * Basal insulin * Regular insulin 1-2 units SQ Q6hrs scheduled * If BSG is below 110 mg/dl --> give 1 unit * If BSG is 110 mg/dl or above --> give 2 units * This is also serving as prandial insulin since it is given with meals - regular insulin preferred with gastroparesis * Bolus insulin * NovoLog per scale ACHS or Q6hrs while NPO * Goal Range: Low 110 mg/dL - High 150 mg/dL * Correction Factor: 30 mg/dL/unit * Nutritional / Prandial insulin per carb ratio of 1 unit per -- grams CHO consumed
--- NOTE | 2019-02-15 17:14 | Psychiatric Consultation ---
Date of Consultation February 15, 2019 Impression / Recommendations Impression This patient has had multiple psychiatric consultations, including one that was provided by Dr. Kasper 3 days ago. He has a fairly long history of depression, anxiety, and periodic panic episodes. Although we were asked to see the patient today because of her report of "severe anxiety," the patient, himself, tells me that he does not feel his anxiety is "severe" and, to the contrary, he notes that it has been improving-in response, he notes, to his learning and applying breathing exercises as a way of managing anxiety as it occurs. He does continue to have panic attacks at various rates her frequency, estimated by the patient to be every week or twp. These episodes are fairly short-lived and respond favorably to lorazepam. He is being followed regularly on an outpatient basis by a psychiatric nurse practitioner and tells me that he has a trusting relationship with the nurse practitioner. There have also been questions of nonadherence with his type 1 diabetes regimen, and certain symptoms associated with gastroparesis of thought possibly to be secondary to a psychiatric overlay in the past. On mental status examination, the patient is found to be cooperative, pleasant, and fairly engaged. His speech is spontaneous and delivered at a normal rate and volume. He avoids eye contact and periodically closes his eyes, within the context of having had recent hip surgery. His thought processes demonstrate tight associations and there is no delusional material and the patient's thought content. He does acknowledge that he episodically experiences auditory hallucinations. Episodic auditory hallucinations can be a benign for finding and occurring up to 10% of the population, particularly hypnopompic and hypnagogic hallucinations. In this case, the patient says that the hallucinations are "dreamlike," pleasant, and he is not troubled by them. Patient is not suicidal nor is a homicidal. We would not make any recommendations for change in his medication regimen at this time. Should he present with more generalized anxiety that does not respond to breathing exercises and other self soothing techniques, an option might be to use a longer acting benzodiazepine, such as diazepam. Risk Factors Assessment Male: Yes : No Do You Have Access To A Gun?: No Health Problems: Yes Mental Health Diagnoses: Yes Substance Use Disorders: No Previous Attempt: No Previous Psychiatric Hospitalization: No Hopelessness: No Smoker: No Protective Factors Assessment : No Responsible for Young Children: No Employed: No Stable Relationships: Yes Supportive Family: Yes Good Rapport with Provider: Yes Absence of Any Risk Factors Above: No CPT Code 24904 Psych History Chief Complaint "I have anxiety, but it's getting better". History of Present Illness This is a patient who sustained a fall and landed on the right hip. He had difficulty with ambulation secondary to right hip pain. He came to [facility] ER where he was noted to have a right intertroch fx. He is being set up for surgical management. He tells me that the fall was simply a matter of his losing his balance while walking to a parking lot, and notes that he had been using a cane because he had existing right hip pain. Psychiatry has been consulted because of a complaint of "severe anxiety." The patient tells us that he has been anxious for a number years, primarily subsequent to his divorce. He is currently being treated on an outpatient basis for psychiatric complaints that include depression, anxiety, and panic episodes at a mental health group known as "[facility]." As noted above, when I asked the patient about his anxiety he did not describe "severe" anxiety but, instead, says that he can become generally anxious intermittently, and that he has found that he is able to manage his anxiety fairly well through the use of deep breathing exercises ("and through the nose, out through the mouth slowly") and demonstrates the exercise for me. The patient also demonstrates how he does a Valsalva maneuver as a way of relieving tension and anxiety. He reports that he has occasional panic episodes, perhaps once every week or two, and they consist of shortness of b reath without palpitations, but with diaphoresis and occasionally with paresthesias (both hands and both feet). The episodes last a matter of several minutes, but he may continue to feel uneasy for as long as 40 minutes because of his tendency to perspire during these episodes. He takes lorazepam 0.5 mg up to twice a day for panic episodes, but generally does not use them for other purposes. We discussed the option of sublingual use of lorazepam as a intervention for panic episodes. We also discussed options that can include a longer acting benzodiazepine for generalized anxiety, but the patient says that he feels that he only needs lorazepam at 0.5 mg when he is having a panic episode, or is beginning to have one. Further, the patient reports favorable response in terms of depression and anxiety to a combination of Zoloft and Wellbutrin. It has been reported that the patient has certain complaints consistent with depression, such as apathy and marriage, but today the patient tells me that he is not feeling depressed, his mood has generally been "good," and although he has periodically experience mood alterations these, as described, would not be consistent with clinical depression nor with chetan or hypomania. A history of adherence with his psychiatric medications is noted. He is able to tell me the correct dose and purpose of each of his 3 psychiatric medications (sertraline, Wellbutrin, and lorazepam). We discussed the fact that he is likely to be transferred to a rehab facility for physical therapy while recovering from surgery for his right hip fracture. The patient says that he understands that this will be necessary and he is hoping for a full recovery. He reports that currently he is not experiencing any pain and says that his mood has been "good" and "calm." Past Psychiatric History Do You Have Access To A Gun?: No Allergies Allergy/AdvReac Type Severity Reaction Status Date / Time shellfish derived Allergy Severe anaphylaxis Verified 02/10/19 12:11 codeine Allergy Intermediate Hives Verified 02/10/19 12:11 promethazine Allergy Intermediate itchy/hives Verified 02/10/19 12:11 Home Medications Home Medications Medication Instructions Recorded Confirmed Type [place] Caps 1 cap PO QAM 12/19/18 02/10/19 History calcium acetate 667 mg PO TIDM MDD 7 CAPSULES/DAY 12/19/18 02/10/19 History cholecalciferol (vitamin D3) 2,000 unit PO QAM 12/23/18 02/10/19 History [Vitamin D3] famotidine 20 mg PO QAM #30 tab 12/23/18 02/10/19 Rx metoclopramide HCl 5 mg PO TID 12/23/18 02/10/19 History sertraline 200 mg PO QAM #60 tab 12/28/18 02/10/19 Rx atorvastatin 10 mg tablet 10 mg PO QAM tab 01/06/19 02/10/19 History prochlorperazine 25 mg rectal 25 mg UT BID PRN ea 01/06/19 02/10/19 History suppository ondansetron HCl 4 mg tablet 4 mg PO TID PRN 01/12/19 02/10/19 History Basaglar LivanPen U-100 Insulin 13 units SQ DAILY@0930 01/31/19 02/10/19 History aprepitant 80 mg PO WK 01/31/19 02/10/19 History bupropion HCl 100 mg PO QAM 01/31/19 02/10/19 History insulin lispro [Admelog SoloStar See Rx Instructions SUBCUT DAILY 01/31/19 02/10/19 History U-100 Insulin] PRN amlodipine 10 mg tablet 10 mg PO DAILY tab 02/04/19 02/10/19 History carvedilol 3.125 mg PO BID #60 tab 02/04/19 02/10/19 Rx lorazepam [Ativan] 0.5 mg PO UD PRN 02/10/19 02/10/19 History Personal History Beliefs That Will Affect Care: None Patient History Medical History Acid reflux Hypertension Type I diabetes mellitus Insulin pump (diagnosed at age 31) Gastroparesis due to DM Depression Anemia Anxiety CAD (coronary artery disease) mild, non-obstructive CAD per 10/2018 cardiac cath ESRD (end stage renal disease) Hemodialysis M,W,F (Follows with Dr. Taylor iHggins; [facility]). Kidney stones Peripheral neuropathy Retinopathy due to secondary diabetes Surgical History History of appendectomy H/O shoulder surgery RIGHT History of hip surgery LEFT HIP ARTHROSCOPY History of cardiac cath 10/2018= no stents, no obstructive disease (at [facility]) History of lithotripsy Permanent central venous catheter in place Permacath Family History Grandfather Myocardial infarction Grandfather (Maternal) Family history of diabetes mellitus Uncle Myocardial infarction Social History Preferred Language: Croatian Communication Ability: Effective Visual Impairment: No Limitations Hearing Ability: Normal Protective Signal Superintendent Required: No Beliefs That Will Affect Care: None marital status: Current Living Situation: Parent current occupational status: unemployed Other Information That Helps Us Care for You: No Feels Safe at Home: Yes Safety Concerns: Feels Safe At This Time Smoking Status: Never smoker Tobacco Type: smokeless tobacco ; Second Hand Exposure: No ; Hx Alcohol Use: No Hx Substance Use: No Childhood Exposure to Second-Hand Smoke: Yes Dental Care, Regularly: No Physical Activity Frequency: 1-2 Times per Week Seatbelt Use: always Sunscreen Use: No Physical Exam Psychiatric: Orientation: alert and oriented x 3 Apperance: appeared stated age Found in a hospital gown in bed. Eye Contact: + poor eye contact Motor Behavior: no abnormal motor movements Speech: normal rate/rhythm/volume of speech (He occasionally closes his eyes and does not engage, but when asked if he would prefer to be left alone his response each time was, "no. At least not yet.") Affect: + constricted affect "It is okay. Thought Process: goal directed thought process Thought Content: reality based without delusions Suicidal Thoughts: denies suicidal thoughts Homicidal Thoughts: denies homicidal thoughts Hallucinations: + auditory hallucinations (The patient reports that he infrequently hears voices. He understands that these are hallucinations, and says that they are not disturbing to him. In fact, he notes that he experiences them as being friendly and something like "a dream.") Cognition: recent memory grossly intact, remote memory grossly intact, attention grossly intact and language grossly intact Estimated Intelligence: average estimated intelligence Insight: + fair insight Judgement: good judgement Vital Signs (Past 24 Hours): Last Vital Signs Temp 36.5 C 02/15/19 15:37 Pulse 87 02/15/19 16:00 Resp 16 02/15/19 15:37 BP 159/79 H 02/15/19 15:37 Pulse Ox 96 02/15/19 15:37 Results & Data Medications Administered Aprepitant (Emend) 80 mg PO Th@0900 [facility] Stop: 03/12/19 18:29 Last Admin: 02/10/19 18:17 Dose: 80 mg Documented by: [id number] Atorvastatin Calcium (Lipitor) 10 mg PO QAM [facility] Stop: 03/13/19 08:59 Last Admin: 02/15/19 08:01 Dose: 10 mg Documented by: [id number] Admin: 02/14/19 07:58 Dose: 10 mg Documented by: [id number] Admin: 02/13/19 12:32 Dose: 10 mg Documented by: [id number] Admin: 02/12/19 11:32 Dose: 10 mg Documented by: [id number] Admin: 02/11/19 08:34 Dose: Not Given Documented by: [id number] Bupropion HCl (Wellbutrin-Sr) 100 mg PO QAM [facility] Stop: 03/13/19 08:59 Last Admin: 02/15/19 08:01 Dose: 100 mg Documented by: [id number] Admin: 02/14/19 07:57 Dose: 100 mg Documented by: [id number] Admin: 02/13/19 12:32 Dose: 100 mg Documented by: [id number] Admin: 02/12/19 11:33 Dose: 100 mg Documented by: [id number] Admin: 02/11/19 08:35 Dose: Not Given Documented by: [id number] Calcium Acetate (Phoslo) 667 mg PO TIDM [facility] Stop: 03/12/19 16:59 Last Admin: 02/15/19 12:39 Dose: Not Given Documented by: [id number] Admin: 02/15/19 08:03 Dose: 667 mg Documented by: [id number] Admin: 02/14/19 18:03 Dose: Not Given Documented by: [id number] Admin: 02/14/19 15:08 Dose: Not Given Documented by: [id number] Admin: 02/14/19 08:29 Dose: Not Given Documented by: [id number] Admin: 02/13/19 17:47 Dose: Not Given Documented by: [id number] Admin: 02/13/19 12:36 Dose: Not Given Documented by: [id number] Admin: 02/13/19 09:53 Dose: Not Given Documented by: [id number] Admin: 02/12/19 16:31 Dose: Not Given Documented by: [id number] Admin: 02/12/19 13:25 Dose: Not Given Documented by: [id number] Admin: 02/12/19 10:34 Dose: Not Given Documented by: [id number] Admin: 02/11/19 17:10 Dose: Not Given Documented by: [id number] Admin: 02/11/19 13:05 Dose: Not Given Documented by: [id number] Admin: 02/11/19 08:22 Dose: Not Given Documented by: [id number] Admin: 02/10/19 18:16 Dose: Not Given Documented by: [id number] Dextrose (Dextrose 50%) 25 - 50 ml IV UD PRN; Protocol PRN Reason: Hypoglycemia Protocol Stop: 03/12/19 17:14 Last Admin: 02/11/19 19:20 Dose: 50 ml Documented by: [id number] Admin: 02/11/19 04:16 Dose: 50 ml Documented by: [id number] Enoxaparin Sodium (Lovenox) 30 mg SQ Q24H [facility] Stop: 03/13/19 20:59 Last Admin: 02/14/19 21:34 Dose: Not Given Documented by: [id number] Admin: 02/13/19 20:31 Dose: Not Given Documented by: [id number] Admin: 02/12/19 22:47 Dose: Not Given Documented by: [id number] Admin: 02/11/19 20:44 Dose: 30 mg Documented by: [id number] [facility]) [facility] Stop: 03/13/19 08:59 Last Admin: 02/15/19 08:02 Dose: 20 mg Documented by: [id number] Admin: 02/14/19 07:58 Dose: 20 mg Documented by: [id number] Admin: 02/13/19 12:33 Dose: 20 mg Documented by: [id number] Admin: 02/12/19 11:32 Dose: 20 mg Documented by: [id number] Admin: 02/11/19 08:34 Dose: Not Given Documented by: [id number] Ferrous Sulfate (Feosol) [facility] Stop: 03/14/19 10:29 Last Admin: 02/15/19 08:02 Dose: 325 mg Documented by: [id number] Admin: 02/14/19 07:58 Dose: 325 mg Documented by: [id number] Admin: 02/13/19 12:33 Dose: 325 mg Documented by: [id number] Admin: 02/12/19 11:32 Dose: 325 mg Documented by: [id number] Insulin Human Regular (Novolin R) 0 units SC Q6 [facility]; Protocol Stop: 03/13/19 00:00 Last Admin: 02/15/19 12:36 Dose: 4 units Documented by: [id number] Cosigned by: [id number] Admin: 02/15/19 06:34 Dose: Not Given Documented by: [id number] Admin: 02/15/19 00:25 Dose: 3 units Documented by: [id number] Cosigned by: [id number] Admin: 02/14/19 18:03 Dose: Not Given Documented by: [id number] Admin: 02/14/19 15:07 Dose: Not Given Documented by: [id number] Admin: 02/14/19 06:27 Dose: 2 units Documented by: [id number] Cosigned by: [id number] Admin: 02/13/19 23:10 Dose: Not Given Documented by: [id number] Admin: 02/13/19 17:48 Dose: Not Given Documented by: [id number] Admin: 02/13/19 12:36 Dose: Not Given Documented by: [id number] Admin: 02/13/19 06:24 Dose: 2 units Documented by: [id number] Cosigned by: [id number] Admin: 02/13/19 00:26 Dose: 2 units Documented by: [id number] Cosigned by: [id number] Admin: 02/12/19 17:55 Dose: Not Given Documented by: [id number] Admin: 02/12/19 13:27 Dose: Not Given Documented by: [id number] Admin: 02/12/19 06:38 Dose: Not Given Documented by: [id number] Admin: 02/12/19 00:04 Dose: Not Given Documented by: [id number] Admin: 02/11/19 20:19 Dose: Not Given Documented by: [id number] Admin: 02/11/19 13:05 Dose: Not Given Documented by: [id number] Admin: 02/11/19 06:48 Dose: Not Given Documented by: [id number] Admin: 02/11/19 01:10 Dose: Not Given Documented by: [id number] Insulin Human Regular (Novolin R) 0 units SC Q6 [facility]; Protocol Stop: 03/15/19 11:59 Last Admin: 02/15/19 12:38 Dose: 2 units Documented by: [id number] Cosigned by: [id number] Admin: 02/15/19 06:33 Dose: 2 units Documented by: [id number] Cosigned by: [id number] Admin: 02/15/19 00:26 Dose: 2 units Documented by: [id number] Cosigned by: [id number] Admin: 02/14/19 18:02 Dose: 1 units Documented by: [id number] Cosigned by: [id number] Admin: 02/14/19 13:52 Dose: 2 units Documented by: [id number] Cosigned by: [id number] Admin: 02/14/19 06:28 Dose: 2 units Documented by: [id number] Cosigned by: [id number] Admin: 02/13/19 23:13 Dose: 1 units Documented by: [id number] Cosigned by: [id number] Admin: 02/13/19 17:55 Dose: 2 units Documented by: [id number] Cosigned by: [id number] Admin: 02/13/19 12:35 Dose: 2 units Documented by: [id number] Cosigned by: [id number] Metoclopramide HCl (Reglan) 5 mg PO AC [facility] Stop: 03/12/19 16:59 Last Admin: 02/15/19 12:39 Dose: 5 mg Documented by: [id number] Cosigned by: [id number] Admin: 02/15/19 08:01 Dose: 5 mg Documented by: [id number] Admin: 02/14/19 16:05 Dose: 5 mg Documented by: [id number] Admin: 02/14/19 13:51 Dose: 5 mg Documented by: [id number] Admin: 02/14/19 07:57 Dose: 5 mg Documented by: [id number] Admin: 02/13/19 17:55 Dose: 5 mg Documented by: [id number] Admin: 02/13/19 12:32 Dose: 5 mg Documented by: [id number] Admin: 02/13/19 09:53 Dose: Not Given Documented by: [id number] Admin: 02/12/19 16:51 Dose: Not Given Documented by: [id number] Admin: 02/12/19 13:47 Dose: Not Given Documented by: [id number] Admin: 02/12/19 11:33 Dose: 5 mg Documented by: [id number] Admin: 02/11/19 17:10 Dose: Not Given Documented by: [id number] Admin: 02/11/19 12:39 Dose: Not Given Documented by: [id number] Admin: 02/11/19 08:22 Dose: Not Given Documented by: [id number] Admin: 02/10/19 18:17 Dose: Not Given Documented by: [id number] Ondansetron HCl (Zofran Tab) 4 mg PO TID PRN PRN Reason: Nausea And Vomiting Stop: 03/12/19 16:53 Last Admin: 02/15/19 08:02 Dose: 4 mg Documented by: [id number] Admin: 02/15/19 03:43 Dose: 4 mg Documented by: [id number] Admin: 02/14/19 07:58 Dose: 4 mg Documented by: [id number] Admin: 02/13/19 03:19 Dose: 4 mg Documented by: [id number] Admin: 02/12/19 11:32 Dose: 4 mg Documented by: [id number] Admin: 02/12/19 00:03 Dose: 4 mg Documented by: [id number] Oxycodone HCl (Roxicodone Immediate Rel) 5 - 10 mg PO Q4H PRN PRN Reason: Breakthrough Pain Stop: 02/25/19 19:17 Last Admin: 02/15/19 03:24 Dose: 5 mg Documented by: [id number] Admin: 02/14/19 08:00 Dose: 10 mg Documented by: [id number] Admin: 02/13/19 22:02 Dose: 10 mg Documented by: [id number] Admin: 02/12/19 13:33 Dose: 10 mg Documented by: [id number] Prochlorperazine (Compazine) 25 mg UT BID PRN PRN Reason: Nausea Stop: 03/12/19 16:53 Last Admin: 02/13/19 22:57 Dose: 25 mg Documented by: [id number] Admin: 02/13/19 06:27 Dose: 25 mg Documented by: [id number] Sertraline HCl (Zoloft) 200 mg PO QAM [facility] Stop: 03/13/19 08:59 Last Admin: 02/15/19 08:00 Dose: 200 mg Documented by: [id number] Admin: 02/14/19 07:58 Dose: 200 mg Documented by: [id number] Admin: 02/13/19 12:33 Dose: 200 mg Documented by: [id number] Admin: 02/12/19 11:33 Dose: 200 mg Documented by: [id number] Admin: 02/11/19 08:35 Dose: Not Given Documented by: [id number] Vitamin B Complex/Folic Acid (Nephrocaps) 1 cap PO QAM [facility] Stop: 03/13/19 08:59 Last Admin: 02/15/19 08:02 Dose: 1 cap Documented by: [id number] Admin: 02/14/19 07:57 Dose: 1 cap Documented by: [id number] Admin: 02/13/19 12:33 Dose: 1 cap Documented by: [id number] Admin: 02/12/19 11:32 Dose: 1 cap Documented by: [id number] Admin: 02/11/19 08:34 Dose: Not Given Documented by: [id number] Vitamin D (Vitamin D3) 2,[facility] Stop: 03/13/19 08:59 Last Admin: 02/15/19 08:02 Dose: 2,000 units Documented by: [id number] Admin: 02/14/19 07:57 Dose: 2,000 units Documented by: [id number] Admin: 02/13/19 12:32 Dose: 2,000 units Documented by: [id number] Admin: 02/12/19 11:33 Dose: 2,000 units Documented by: [id number] Admin: 02/11/19 08:34 Dose: Not Given Documented by: [id number]
[2019-02-15] MEDS ORDERED: INSULIN HUMAN REGULAR SC SCH (21:00)
--- NOTE | 2019-02-15 22:16 | Hospitalist Progress Note ---
Date of Service February 15, 2019 Assessment & Plan (1) Toxic encephalopathy: During previous hospital stay and now this stay the ativan has worked very well for his nausea and his anxiety. Unfortunately I believe it is causing sedation & delirium/confusion. We will have to stop it because of the risks of him falling again, the confusion, etc while using it. I suspect the confusion will resolve by tomorrow by simply stopping the ativan. If his confusion persists then will look for alternative causes of the confusion (repeat u/a and urine cx, etc). (2) Closed intertrochanteric fracture of right hip: POD #4 s/p ORIF by Dr Luevano. stable, doing well from ortho standpoint. bone biopsy w/o signs of malignancy. presumably osteoporotic fracture in context of long-standing T1DM. 25-OH vitamin D level wnl. cont pain control. WBAT. needs rehab. (3) End stage renal disease on dialysis: HD Thursday and Thursday. [facility] assistance appreciated (4) DM type 1 (diabetes mellitus, type 1): glycemic control per pharmacy appreciate their assistance no DKA at this time control adequate (5) Anxiety: severe, with concomitant depression on zoloft and wellbutrin ativan has worked well on past admission not ideal long-term for him but it helps his nausea/emesis as well the scheduled ativan 0.5mg BID did indeed help him but led to side effects (see above) need to stop ativan unfortunately psych consult requested for additional med recommendations cont counseling (6) Hypertension: in light of depressed EF needs low-dose BB consider metoprolol xl low-dose in divya of coreg (former tends to cause less effect on BPs than latter) (7) CHF (congestive heart failure): Systolic - Most recent echo 10/24 showing mildly reduced EF 45% - now EF with further mild reduction to 35% Not in exacerbation Resume beta deidre if BPs will allow (8) Depression: severe, MDD. will ask psych to see in light of recent crisis intervention call. cont zoloft cont wellbutrin NUMEROUS psychosocial stressors cont outpatient counseling (9) Gastroparesis: severe, refractory to numerous meds tried in the last 1-2 years. follows with motility clinic at [place] in [facility]. cont reglan his anxiety makes his symptoms much worse consider call to [facility] if symptoms return during the stay (10) Severe protein-calorie malnutrition: has lost 20+ kg since August 2018. much of the weight loss is in context of severe gastroparesis, depression, advancing CKD/ESRD, potentially other issues. (11) DVT prophylaxis: lovenox 30mg daily PT/OT emperatrizals -- rehab recommended -- he is agreeable mother/father updated today Subjective during the visit the patient was sleepy/groggy but would awaken easily to name being called and questions being posed to him. he knew he was in the hospital and that it was Thursday. his mother was at bedside. some time late last pm he became delirious, trying to get out of bed in the middle of the night, etc. following initiation of SL ativan yesterday afternoon his nausea resolved and he ate a full dinner last night and ate again today w/o any limiting GI symptoms. he denies any new complaints. he denies any hip pain. Review of Systems Constitutional: no fever Respiratory: no cough and no dyspnea Cardiovascular: no chest pain Gastrointestinal: no abdominal pain, no nausea, no vomiting and no diarrhea/loose stools Physical Exam Constitutional: + thin; no acute distress mildly confused; mildly sleepy ENMT: Mouth: + dry oral mucous membranes Respiratory: normal respiratory effort, lungs clear to auscultation Cardiovascular: Rate/Rhythm: regular rate and regular rhythm Heart Sounds: normal S1 and normal S2; no murmur Vessels: posterior tibial pulses present and dorsalis pedis pulses present; no JVD Extremities: no edema Gastrointestinal (Abdomen): normal bowel sounds, soft, nontender, no hepa tosplenomegaly Skin: right hip parminder intact; no drainage; no erythema Psychiatric: Orientation: alert and oriented x 3 although he is oriented he was mildly confused, reaching for things in air, etc Results & Data Vital Signs (Past 12 Hours) Vital Signs Temp Pulse Pulse Pulse Resp BP Pulse Ox 02/15/19 20:51 36.7 C 91 H 18 153/82 H 94 02/15/19 16:00 87 02/15/19 15:37 36.5 C 80 16 159/79 H 96 02/15/19 12:58 36.6 C 83 20 151/81 H 98 Laboratory Results Laboratory Results - last 24 hr 02/15/19 02/15/19 02/15/19 00:17 06:12 07:00 WBC 15.17 H RBC 2.96 L Hgb 9.5 L Hct 28.8 L MCV 97.3 MCH 32.1 MCHC 33.0 RDW Std Deviation 55.8 H RDW Coeff of Kami 15.8 H Plt Count 282 MPV 9.4 Sodium Potassium Chloride Carbon Dioxide Anion Gap BUN Creatinine Est Cr Clr Drug Dosing Est GFR ( Amer) Est GFR (Non-Af Amer) BUN/Creatinine Ratio Glucose POC Glucose 232 H 145 H Calcium 25-OH Vitamin D Total 02/15/19 02/15/19 02/15/19 07:00 07:00 11:37 WBC RBC Hgb Hct MCV MCH MCHC RDW Std Deviation RDW Coeff of Kami Plt Count MPV Sodium 130 L Potassium 4.1 Chloride 92 L Carbon Dioxide 20 L Anion Gap 18.0 H BUN 43 H Creatinine 5.65 H* D Est Cr Clr Drug Dosing 12.9 Est GFR ( Amer) 12.7 Est GFR (Non-Af Amer) 10.9 BUN/Creatinine Ratio 7.7 L Glucose 159 H POC Glucose 254 H Calcium 8.2 L 25-OH Vitamin D Total 34.1 02/15/19 18:16 WBC RBC Hgb Hct MCV MCH MCHC RDW Std Deviation RDW Coeff of Kami Plt Count MPV Sodium Potassium Chloride Carbon Dioxide Anion Gap BUN Creatinine Est Cr Clr Drug Dosing Est GFR ( Amer) Est GFR (Non-Af Amer) BUN/Creatinine Ratio Glucose POC Glucose 265 H Calcium 25-OH Vitamin D Total PG Care Time/CCT Total # of Minutes Spent Total Time Spent with Patient: Total time spent is greater than 50% in coordination of care (as documented) at patient's floor/unit and/or counseling patient: (1) DM type 1 (diabetes mellitus, type 1) Chronic kidney disease stage: on chronic dialysis Diabetes mellitus complication detail: with chronic kidney disease Diabetes mellitus complication status: with kidney complications Qualified Code(s): E10.22 - Type 1 diabetes mellitus with diabetic chronic kidney disease; N18.6 - End stage renal disease; Z99.2 - Dependence on renal dialysis (2) CHF (congestive heart failure) Heart failure chronicity: acute Heart failure type: unspecified Qualified Code(s): I50.9 - Heart failure, unspecified (3) Depression Depression Type: other depression Qualified Code(s): F32.89 - Other specified depressive episodes (4) Hypertension Hypertension type: unspecified Qualified Code(s): I10 - Essential (primary) hypertension (5) Closed intertrochanteric fracture of right hip Encounter type: subsequent encounter Fracture alignment: nondisplaced Fracture healing: with routine healing Qualified Code(s): S72.144D - Nondisplaced intertrochanteric fracture of right femur, subsequent encounter for closed fracture with routine healing
[2019-02-15] MEDS: ENOXAPARIN INJ 30 MG/0.3 ML SYR SQ SCH (22:25)
[2019-02-16 04:44] LABS: Hemoglobin 9.9 g/dL (14.0-18.0); Mean Corpuscular Volume 94.6 fL (80-100); Mean Platelet Volume 8.6 fL (7.4-10.4); Platelet Count 266 K/uL (130-400); RDW Standard Deviation 52.1 fL (36.4-46.3); Red Blood Count 3.17 M/uL (4.7-6.1); White Blood Count 11.63 K/uL (4.8-10.8)
[2019-02-16 05:22] LABS: BUN Creatinine Ratio 7.4 (10-20); Calcium 8.3 mg/dl (8.5-10.1); Creatinine Clr Calc Pharmacy 10.2 ml/min; Est GFR (African American) 9.5; Est GFR (Non-African American) 8.2; Potassium 4.1 mmol/L (3.5-5.1)
[2019-02-16] MEDS: INSULIN HUMAN REGULAR SC SCH ×6 (06:22→18:47)
[2019-02-16] MEDS ORDERED: HEPARIN SOD (PORCINE) 1000 UNIT/ML 10 ML VIAL IV ONE (07:53)
[2019-02-16] MEDS ORDERED: SODIUM CHLORIDE 0.9% 1000ML 1,000 ML IV PRN (07:53)
[2019-02-16] MEDS ORDERED: IRON SUCROSE 100 MG in SYRINGE 0 ML IV SCH (08:00)
[2019-02-16] MEDS ORDERED: EPOETIN ALFA 10,000 UNITS/ML VIAL IV SCH (08:00)
[2019-02-16] MEDS ORDERED: INSULIN HUMAN REGULAR SC ONE (08:01)
[2019-02-16] MEDS: METOCLOPRAMIDE HCL 5 MG TABLET PO SCH ×3 (09:12→18:46)
[2019-02-16] MEDS: FERROUS SULFATE 325 MG TAB PO SCH ×2 (09:13→11:30)
[2019-02-16] MEDS: CHOLECALCIFEROL 1,000 UNITS TAB PO SCH ×2 (09:13→11:30)
[2019-02-16] MEDS: NEPHROCAPS PO SCH ×2 (09:13→11:28)
[2019-02-16] MEDS: CALCIUM ACETATE 667 MG CAP PO SCH ×3 (09:29→18:46)
[2019-02-16] MEDS: FAMOTIDINE 20 MG TAB PO SCH (11:26)
[2019-02-16] MEDS: BuPROPion SR 100 MG TABCR PO SCH (11:28)
[2019-02-16] MEDS: ATORVASTATIN 10 MG TAB PO SCH (11:28)
[2019-02-16] MEDS: SERTRALINE HCL 100 MG TABLET PO SCH (11:28)
--- NOTE | 2019-02-16 14:45 | Pharmacy Report ---
Pharmacy Glycemic Short Note 2 - Date of Service February 16, 2019 - Glycemic Short BSG Results (Last 24 hours): 02/15/19 02/15/19 02/16/19 18:16 22:21 04:32 Glucose 139 H POC Glucose 265 H 190 H 02/16/19 02/16/19 06:17 11:51 Glucose POC Glucose 212 H 209 H OUTPATIENT ANTIDIABETIC REGIMEN: * Basaglar 13 units daily * Admelog using CR 1:10 + SS * A1c - Patient's A1c likely somewhat unreliable in ESRD patients d/t interactions between the A1c analyzing technique and high levels of urea in ESRD, reduced RBC life span, iron deficiency anemia, and EPO administration. HbA1c > 7.5% in ESRD patient may overestimate the extent of hyperglycemia in ESRD patients. ASSESSMENT: 02/16 * Patient received 14 units of insulin yesterday- BSGs in in mid 200s/high 100s, within his goal * BSGs today in low 200s, for hemodialysis today, missed correction this morning * will continue current regimen 02/15 * patient required a total of 12 units of insulin yesterday with relatively good BSGs despite receiving dialysis. Lunch BSG today is elevated however, is acceptable for now given very labile history. Of note patient is PO intake is very poor per nurse. Insulin needs may increase slightly if PO intake improves. Will continue current regimen for now. 02/13 * POD#2 s/p hip fracture surgery. * Pt is a brittle type 1 diabetic well known to pharmacy from previous admissions/glycemic consults. * Typically, we dose him with Lantus + Novolog SQ basal bolus but he has dramatic BSG swings and fluctuations secondary to N/V. Last admission, we trialed using scheduled Regular insulin SQ Q6hrs instead of basal bolus to allow for easier real time adjustments. Continued this again on admission 02/10/19. * Glycemic control has been excellent over the past 24hrs with current orders. Goal for Ivan is to maintain BSGs 100-250 mg/dl since he is so brittle. * His BSG dropped to 82 units prior to dinner- therefore, scheduled dosed of regular insulin (2 units) was held appropriately. Pt tends to drop his BSG overnight so scheduled dosing was reduced to 1 units SQ Q6hrs. Ironically, his BSG was a little elevated but the correctional insulin supplemented additional needs. * Will change his scheduled regular insulin dosing to 1-2 units based on BSG. No changes needed to his correctional insulin. PLAN FOR INPATIENT GLYCEMIC CONTROL: * Basal insulin * Regular insulin 1-2 units SQ Q6hrs scheduled * If BSG is below 110 mg/dl --> give 1 unit * If BSG is 110 mg/dl or above --> give 2 units * This is also serving as prandial insulin since it is given with meals - regular insulin preferred with gastroparesis * Bolus insulin * NovoLog per scale ACHS or Q6hrs while NPO * Goal Range: Low 110 mg/dL - High 150 mg/dL * Correction Factor: 30 mg/dL/unit * Nutritional / Prandial insulin per carb ratio of 1 unit per -- grams CHO consumed
[2019-02-16] MEDS: HEPARIN SOD (PORCINE) 1000 UNIT/ML 10 ML VIAL IV SCH (15:59)
[2019-02-16] MEDS: OXYCODONE HCL IR 5 MG TAB (IMMEDIATE RELEASE) PO PRN (18:45)
[2019-02-16] MEDS: ENOXAPARIN INJ 30 MG/0.3 ML SYR SQ SCH (18:46)
--- NOTE | 2019-02-16 20:08 | XRay Report ---
XR chest 1V portable CLINICAL HISTORY: 48 years-old Male presenting with LLL wheeze/rales; eval LLL pneumonia. TECHNIQUE: Portable upright AP view of the chest was obtained. COMPARISON: 02/10/2019. FINDINGS: Dual lumen tunneled right internal jugular or right subclavian dialysis catheter terminates at the roman perior cavoatrial junction. Cardiac silhouette top normal in size. No focal opacity. No large effusio n or pneumothorax. Osseous structures normal. IMPRESSION: 1. No acute cardiopulmonary disease. Electronically signed by: Jose Zaldivar M.D. 02/16/2019 8:07 PM
--- NOTE | 2019-02-16 20:22 | Hospitalist Progress Note ---
Date of Service February 16, 2019 Assessment & Plan (1) Toxic encephalopathy: Resolved. likely due to prior ativan use and oxycodone use. ativan has been stopped. change oxycodone to hydrocodone. mental status back to baseline today. (2) Closed intertrochanteric fracture of right hip: POD #5 s/p ORIF by Dr Luevano. stable, doing well from ortho standpoint. bone biopsy w/o signs of malignancy. presumably osteoporotic fracture in context of long-standing T1DM. 25-OH vitamin D level wnl. cont pain control (see above in encephalopathy). WBAT. needs rehab. (3) End stage renal disease on dialysis: HD Thursday and Thursday. [facility] assistance appreciated (4) DM type 1 (diabetes mellitus, type 1): glycemic control per pharmacy appreciate their assistance no DKA at this time control adequate (5) Anxiety: severe, with concomitant depression on zoloft and wellbutrin ativan has worked well on past admission not ideal long-term for him but it helps his nausea/emesis as well the scheduled ativan 0.5mg BID did indeed help him but led to side effects (see above) ativan thus stopped psych consult appreciated consideration towards different benzo entertained otherwise no other changes cont outpatient counseling (6) Hypertension: in light of depressed EF needs low-dose BB consider metoprolol xl low-dose in divya of coreg (former tends to cause less effect on BPs than latter) however patient has severe orthostasis following dialysis and even on non-HD days would have to use cautiously in light of recent fall (7) CHF (congestive heart failure): Systolic - Most recent echo 10/24 showing mildly reduced EF 45% - now EF with further mild reduction to 35% Not in exacerbation Resume beta deidre if BPs will allow (8) Depression: severe, MDD. cont zoloft cont wellbutrin NUMEROUS psychosocial stressors cont outpatient counseling psych consult appreciated; no new recs (9) Gastroparesis: severe, refractory to numerous meds tried in the last 1-2 years. follows with motility clinic at [place] in [facility]. cont reglan his anxiety makes his symptoms much worse consider call to [place] if symptoms return during the stay (10) Severe protein-calorie malnutrition: has lost 20+ kg since August 2018. much of the weight loss is in context of severe gastroparesis, depression, advancing CKD/ESRD, potentially other issues. cont nephrocaps consider remeron (11) DVT prophylaxis: lovenox 30mg daily PT/OT evals -- rehab recommended -- he is agreeable rehab referral in progress due to focal left lung exam findings chest x-ray ordered; will follow-up on such Subjective pt's confusion resolved a/o x 3 able to recite correctly all the months of the years backward he admits that the ativan and the oxycodone make him drowsy and confused didn't have any nausea/emesis today but "didn't feel well" was able to eat some breakfast/lunch and kept it down had HD today -2 L fluid removed felt dizzy during my assessment Review of Systems Constitutional: + fatigue; no fever and no chills Respiratory: no cough and no dyspnea Cardiovascular: no chest pain Gastrointestinal: no abdominal pain, no nausea, no vomiting, no constipation and no diarrhea/loose stools Physical Exam Constitutional: + thin; no acute distress ENMT: external ear and nose normal, oropharynx normal Mouth: + dry oral mucous membranes Respiratory: Auscultation: + crackles (focal, left base - with wheeze; rest of lung exam wnl) Cardiovascular: Rate/Rhythm: regular rate and regular rhythm Heart Sounds: normal S1 and normal S2; no murmur Vessels: posterior tibial pulses present and dorsalis pedis pulses present; no JVD Extremities: no edema Gastrointestinal (Abdomen): normal bowel sounds, soft, nontender, no hepatosplenomegaly Psychiatric: Orientation: alert and oriented x 3 Affect: + flat affect Results & Data Vital Signs (Past 12 Hours) Vital Signs Temp Pulse Pulse Pulse Pulse Resp BP 02/16/19 19:00 36.8 C 96 H 20 02/16/19 18:08 36.6 C 86 86 112/61 02/16/19 17:40 81 84/40 L 02/16/19 17:20 84 81/47 L 02/16/19 17:00 78 104/44 L 02/16/19 16:40 85 91/54 L 02/16/19 16:20 84 101/54 L 02/16/19 16:00 83 92/55 L 02/16/19 15:40 78 103/55 L 02/16/19 15:20 83 103/53 L 02/16/19 15:00 82 106/61 02/16/19 14:40 82 106/56 L 02/16/19 14:20 81 107/58 L 02/16/19 14:08 36.9 C 84 84 136/83 02/16/19 13:20 83 92/55 L 02/16/19 11:53 36.5 C 83 18 BP Pulse Ox 02/16/19 19:00 90/55 L 96 02/16/19 18:08 112/61 02/16/19 17:40 02/16/19 17:20 02/16/19 17:00 02/16/19 16:40 02/16/19 16:20 02/16/19 16:00 02/16/19 15:40 02/16/19 15:20 02/16/19 15:00 02/16/19 14:40 02/16/19 14:20 02/16/19 14:08 02/16/19 13:20 02/16/19 11:53 119/69 93 Laboratory Results Laboratory Results - last 24 hr 02/15/19 02/16/19 02/16/19 22:21 04:32 04:32 WBC 11.63 H RBC 3.17 L Hgb 9.9 L Hct 30.0 L MCV 94.6 MCH 31.2 MCHC 33.0 RDW Std Deviation 52.1 H RDW Coeff of Kami 15.0 H Plt Count 266 MPV 8.6 Sodium 128 L Potassium 4.1 Chloride 89 L Carbon Dioxide 27 Anion Gap 12.0 H BUN 53 H Creatinine 7.15 H* D Est Cr Clr Drug Dosing 10.2 Est GFR ( Amer) 9.5 Est GFR (Non-Af Amer) 8.2 BUN/Creatinine Ratio 7.4 L Glucose 139 H POC Glucose 190 H Calcium 8.3 L 02/16/19 02/16/19 02/16/19 06:17 11:51 18:39 WBC RBC Hgb Hct MCV MCH MCHC RDW Std Deviation RDW Coeff of Kami Plt Count MPV Sodium Potassium Chloride Carbon Dioxide Anion Gap BUN Creatinine Est Cr Clr Drug Dosing Est GFR ( Amer) Est GFR (Non-Af Amer) BUN/Creatinine Ratio Glucose POC Glucose 212 H 209 H 121 H Calcium PG Care Time/CCT Total # of Minutes Spent Total Time Spent with Patient: Total time spent is greater than 50% in coordination of care (as documented) at patient's floor/unit and/or counseling patient: (1) DM type 1 (diabetes mellitus, type 1) Chronic kidney disease stage: on chronic dialysis Diabetes mellitus complication detail: with chronic kidney disease Diabetes mellitus complication status: with kidney complications Qualified Code(s): E10.22 - Type 1 diabetes mellitus with diabetic chronic kidney disease; N18.6 - End stage renal disease; Z99.2 - Dependence on renal dialysis (2) CHF (congestive heart failure) Heart failure chronicity: acute Heart failure type: unspecified Qualified Code(s): I50.9 - Heart failure, unspecified (3) Depression Depression Type: other depression Qualified Code(s): F32.89 - Other specified depressive episodes (4) Hypertension Hypertension type: unspecified Qualified Code(s): I10 - Essential (primary) hypertension (5) Closed intertrochanteric fracture of right hip Encounter type: subsequent encounter Fracture alignment: nondisplaced Fracture healing: with routine healing Qualified Code(s): S72.144D - Non displaced intertrochanteric fracture of right femur, subsequent encounter for closed fracture with routine healing
--- NOTE | 2019-02-16 21:50 | Nephrology Progress Note ---
Date of Service February 16, 2019 Assessment & Plan (1) End stage renal disease on dialysis: on MWF HD via [facility] -for HD today > tolerated 2L fluid off as sbp was high this am -his amlodipine is on hold and agree w/ same -next HD planned tentatively for 02/19 or as clinical status dictates; not overloaded on exam -recommend bmp, hgb at least every other day (2) Closed intertrochanteric fracture of right hip: per ortho and admitting service > s/p OR (3) Anemia due to end stage renal disease: gave 10K units epo on hd -low iron stores and getting venofer on HD as well (4) Anxiety: just had crisis intervention called 48 hrs prior to admission after dialysis; psych aware/eval'd Subjective seen on rounds at about 1015 am; pain well controlled; still minimal po d/t N; denies sob, denies constipation; denies edema Review of Systems Review of Systems: All systems reviewed & are unremarkable except as noted in HPI & below Physical Exam Constitutional: well developed, + cachectic, + frail appearing and cooperative lying in darkened room on RA Eyes: EOM intact bilaterally ENMT: Ears: no external ear abnormality Nose: no external nose abnormality Mouth: + dry oral mucous membranes Neck: no nuchal rigidity Respiratory: normal respiratory effort Auscultation: lungs clear to auscultation bilaterally and + diminished lung sounds Cardiovascular: RRR, no murmur, no edema Extremities: + AV fistula (t/b undetectable as at previous exams) Gastrointestinal (Abdomen): Inspection/Auscultation: normal bowel sounds Percussion/Palpation: + abdomen tender and abdomen soft Musculoskeletal: Extremities: strength 5/5 throughout Skin: no rashes, warm and dry Neurologic: spicer, fluent speech, no tremor Psychiatric: Orientation: alert and oriented x 3 Eye Contact: + fair eye contact Speech: normal rate/rhythm/volume of speech Affect: + depressed affect and + anxious affect Results & Data Vital Signs (Past 12 Hours) Vital Signs Temp Pulse Pulse Pulse Pulse Resp BP 02/16/19 20:39 02/16/19 19:00 36.8 C 96 H 20 02/16/19 18:08 36.6 C 86 86 112/61 02/16/19 17:40 81 84/40 L 02/16/19 17:20 84 81/47 L 02/16/19 17:00 78 104/44 L 02/16/19 16:40 85 91/54 L 02/16/19 16:20 84 101/54 L 02/16/19 16:00 83 92/55 L 02/16/19 15:40 78 103/55 L 02/16/19 15:20 83 103/53 L 02/16/19 15:00 82 106/61 02/16/19 14:40 82 106/56 L 02/16/19 14:20 81 107/58 L 02/16/19 14:08 36.9 C 84 84 136/83 02/16/19 13:20 83 92/55 L 02/16/19 11:53 36.5 C 83 18 BP Pulse Ox 02/16/19 20:39 103/64 02/16/19 19:00 90/55 L 96 02/16/19 18:08 112/61 02/16/19 17:40 02/16/19 17:20 02/16/19 17:00 02/16/19 16:40 02/16/19 16:20 02/16/19 16:00 02/16/19 15:40 02/16/19 15:20 02/16/19 15:00 02/16/19 14:40 02/16/19 14:20 02/16/19 14:08 02/16/19 13:20 02/16/19 11:53 119/69 93 Laboratory Results 02/16/19 04:32 02/16/19 04:32 (1) Closed intertrochanteric fracture of right hip Encounter type: subsequent encounter Fracture alignment: nondisplaced Fracture healing: with routine healing Qualified Code(s): S72.144D - Nondisplaced intertrochanteric fracture of right femur, subsequent encounter for closed fracture with routine healing
[2019-02-17] MEDS ORDERED: HYDROCODONE/ACETAMOPHEN 5/325MG TAB PO PRN
[2019-02-17] MEDS: INSULIN HUMAN REGULAR SC SCH ×10 (00:07→23:36)
[2019-02-17 07:42] LABS: Hematocrit (blood only) 30.6 % (42-52); Hemoglobin 9.7 g/dL (14.0-18.0); Mean Corpuscular Hgb Conc 31.7 g/dL (32-36); Mean Corpuscular Volume 97.5 fL (80-100); Platelet Count 249 K/uL (130-400); RDW Coefficient of Variation 15.3 % (11.5-14.5); RDW Standard Deviation 54.5 fL (36.4-46.3); Red Blood Count 3.14 M/uL (4.7-6.1); White Blood Count 12.48 K/uL (4.8-10.8)
[2019-02-17] MEDS: METOCLOPRAMIDE HCL 5 MG TABLET PO SCH ×3 (07:59→17:26)
[2019-02-17] MEDS: NEPHROCAPS PO SCH (07:59)
[2019-02-17] MEDS: SERTRALINE HCL 100 MG TABLET PO SCH (08:00)
[2019-02-17] MEDS: CALCIUM ACETATE 667 MG CAP PO SCH ×3 (08:00→17:26)
[2019-02-17] MEDS: APREPITANT 80 MG CAP PO SCH (08:00)
[2019-02-17] MEDS: BuPROPion SR 100 MG TABCR PO SCH (08:00)
[2019-02-17] MEDS: ATORVASTATIN 10 MG TAB PO SCH (08:00)
[2019-02-17] MEDS: CHOLECALCIFEROL 1,000 UNITS TAB PO SCH (08:00)
[2019-02-17] MEDS: FAMOTIDINE 20 MG TAB PO SCH (08:01)
[2019-02-17] MEDS: FERROUS SULFATE 325 MG TAB PO SCH (08:01)
[2019-02-17] MEDS: TRIAMCINOLONE ACET 0.1% CR 15 GM TUBE EXT SCH ×2 (17:25→20:35)
[2019-02-17] MEDS: ENOXAPARIN INJ 30 MG/0.3 ML SYR SQ SCH (20:37)
--- NOTE | 2019-02-17 21:14 | Hospitalist Progress Note ---
Date of Service February 17, 2019 Assessment & Plan (1) Toxic encephalopathy: Resolved. likely due to prior ativan use and oxycodone use. ativan was stopped; oxycodone changed to hydrocodone. mental status at baseline. no evidence of metabolic etiology. cxr w/o pneumonia. recent urine cx negative. (2) Closed intertrochanteric fracture of right hip: POD #6 s/p ORIF by Dr Luevano. stable, doing well from ortho standpoint. bone biopsy w/o signs of malignancy. presumably osteoporotic fracture in context of long-standing T1DM. 25-OH vitamin D level wnl. cont pain control (see above in encephalopathy). WBAT. needs rehab - approved for [facility]. (3) End stage renal disease on dialysis: HD schedule - Thursday. [facility] assistance appreciated had left arm fistula placed recently - did not take/mature. follows with Dr Henry. (4) DM type 1 (diabetes mellitus, type 1): glycemic control per pharmacy appreciate their assistance no DKA at this time control adequate/acceptable (5) Anxiety: severe, with concomitant depression on zoloft and wellbutrin ativan worked well on past admission for anxiety/nausea he took scheduled ativan 0.5mg BID several days ago -- did indeed help him but led to side effects including confusion/sedation ativan thus stopped psych consult appreciated consideration towards different benzo entertained otherwise no other changes cont outpatient counseling (6) Hypertension: in light of depressed EF needs low-dose BB consider metoprolol xl low-dose in divya of coreg (former tends to cause less effect on BPs than latter) however patient has severe orthostasis following dialysis and even on non-HD days check orthostatics first before re-trialing low-dose BB (7) CHF (congestive heart failure): Systolic - echo 10/24 showed mildly reduced EF 45% repeat echo now with EF of 35% Not in exacerbation Resume beta deidre if BPs will allow (8) Depression: severe, MDD. cont zoloft cont wellbutrin NUMEROUS psychosocial stressors cont outpatient counseling psych consult appreciated; no new recs (9) Gastroparesis: severe, refractory to numerous meds tried in the last 1-2 years. follows with motility clinic at [facility] in [facility]. cont reglan his anxiety makes his symptoms much worse (10) Severe protein-calorie malnutrition: has lost 20+ kg since August 2018. much of the weight loss is in context of severe gastroparesis, depression, advancing CKD/ESRD, potentially other issues. cont nephrocaps consider remeron would supplement thiamine, etc (11) DVT prophylaxis: lovenox 30mg daily PT/OT evals -- rehab recommended -- he is agreeable accepted at [facility] hopefully d/c tomorrow on Thursday d/c tele transfer to med/surg Subjective tele stable overnight he has been able to eat w/o nausea or emesis since my visit with him yesterday. denies abd pain. confusion improved but he states "he still doesn't feel like himself." with that said he is a/o x 3 and can still recite months of the year backwards. denies significant anxiety today. denies cp, dyspnea, cough, dysuria. Review of Systems Constitutional: + fatigue; no fever and no chills Respiratory: no cough, no dyspnea and no dyspnea on exertion Cardiovascular: no chest pain Gastrointestinal: no abdominal pain and no diarrhea/loose stools Physical Exam Constitutional: + thin; no acute distress ENMT: external ear and nose normal, oropharynx normal Mouth: + dry oral mucous membranes Respiratory: normal respiratory effort, lungs clear to auscultation Cardiovascular: Rate/Rhythm: regular rate and regular rhythm Heart Sounds: normal S1 and normal S2; no murmur Vessels: posterior tibial pulses present and dorsalis pedis pulses present; no JVD Extremities: no edema Gastrointestinal (Abdomen): normal bowel sounds, soft, nontender, no hepatosplenomegaly Skin: dialysis catheter right upper chest clean, no erythema Psychiatric: Orientation: alert and oriented x 3 Affect: + flat affect Results & Data Vital Signs (Past 12 Hours) Vital Signs Temp Pulse Pulse Resp BP Pulse Ox 02/17/19 18:00 36.6 C 87 15 134/76 97 02/17/19 11:55 37.3 C 84 20 129/74 97 Laboratory Results Laboratory Results - last 24 hr 02/17/19 02/17/19 02/17/19 00:05 06:07 06:10 WBC RBC Hgb Hct MCV MCH MCHC RDW Std Deviation RDW Coeff of Kami Plt Count MPV POC Glucose 119 H 268 H 257 H 02/17/19 02/17/19 02/17/19 07:22 11:50 17:56 WBC 12.48 H RBC 3.14 L Hgb 9.7 L Hct 30.6 L MCV 97.5 MCH 30.9 MCHC 31.7 L RDW Std Deviation 54.5 H RDW Coeff of Kami 15.3 H Plt Count 249 MPV 9.0 POC Glucose 205 H 193 H PG Care Time/CCT Total # of Minutes Spent Total Time Spent with Patient: Total time spent is greater than 50% in coordination of care (as documented) at patient's floor/unit and/or counseling patient: (1) DM type 1 (diabetes mellitus, type 1) Chronic kidney disease stage: on chronic dialysis Diabetes mellitus complication detail: with chronic kidney disease Diabetes mellitus complication status: with kidney complications Qualified Code(s): E10.22 - Type 1 diabetes mellitus with diabetic chronic kidney disease; N18.6 - End stage renal disease; Z99.2 - Dependence on renal dialysis (2) CHF (congestive heart failure) Heart failure chronicity: acute Heart failure type: unspecified Qualified Code(s): I50.9 - Heart failure, unspecified (3) Depression Depression Type: other depression Qualified Code(s): F32.89 - Other specified depressive episodes (4) Hypertension Hypertension type: unspecified Qualified Code(s): I10 - Essential (primary) hypertension (5) Closed intertrochanteric fracture of right hip Encounter type: subsequent encounter Fracture alignment: nondisplaced Fracture healing: with routine healing Qualified Code(s): S72.144D - Nondisplaced intertrochanteric fracture of right femur, subsequent encounter for closed fracture with routine healing
[2019-02-18] MEDS: INSULIN HUMAN REGULAR SC SCH ×6 (05:56→17:51)
[2019-02-18] MEDS ORDERED: SODIUM CHLORIDE 0.9% 1000ML 1,000 ML IV PRN (08:56)
--- NOTE | 2019-02-18 09:41 | Pharmacy Report ---
Pharmacy Glycemic Short Note 2 - Date of Service February 18, 2019 - Glycemic Short BSG Results (Last 24 hours): 02/17/19 02/17/19 02/17/19 11:50 17:56 23:25 POC Glucose 205 H 193 H 134 H 02/18/19 05:49 POC Glucose 161 H OUTPATIENT ANTIDIABETIC REGIMEN: * Basaglar 13 units daily * Admelog using CR 1:10 + SS * A1c - Patient's A1c likely somewhat unreliable in ESRD patients d/t interactions between the A1c analyzing technique and high levels of urea in ESRD, reduced RBC life span, iron deficiency anemia, and EPO administration. HbA1c > 7.5% in ESRD patient may overestimate the extent of hyperglycemia in ESRD patients. ASSESSMENT: Mr. De Los Santos's BSGs have remained reasonably controlled over the previous 24hrs: [phone]/dL. Plan is for HD today. We will continue with current ins ulin regimen. PLAN FOR INPATIENT GLYCEMIC CONTROL: * Basal insulin * Regular insulin 1-2 units SQ Q6hrs scheduled * If BSG is below 110 mg/dl --> give 1 unit * If BSG is 110 mg/dl or above --> give 2 units * This is also serving as prandial insulin since it is given with meals - regular insulin preferred with gastroparesis * Bolus insulin * NovoLog per scale ACHS or Q6hrs while NPO * Goal Range: Low 110 mg/dL - High 150 mg/dL * Correction Factor: 30 mg/dL/unit * Nutritional / Prandial insulin per carb ratio of 1 unit per -- grams CHO consumed
[2019-02-18] MEDS: METOCLOPRAMIDE HCL 5 MG TABLET PO SCH ×3 (09:42→16:55)
[2019-02-18] MEDS: CALCIUM ACETATE 667 MG CAP PO SCH ×3 (09:42→16:55)
[2019-02-18] MEDS: FERROUS SULFATE 325 MG TAB PO SCH (09:42)
[2019-02-18] MEDS: ATORVASTATIN 10 MG TAB PO SCH (09:43)
[2019-02-18] MEDS: FAMOTIDINE 20 MG TAB PO SCH (09:43)
[2019-02-18] MEDS: CHOLECALCIFEROL 1,000 UNITS TAB PO SCH (09:44)
[2019-02-18] MEDS: BuPROPion SR 100 MG TABCR PO SCH (09:44)
[2019-02-18] MEDS: SERTRALINE HCL 100 MG TABLET PO SCH (09:44)
[2019-02-18] MEDS ORDERED: IRON SUCROSE 100 MG in SYRINGE 0 ML IV SCH (10:00)
[2019-02-18] MEDS ORDERED: HEPARIN SOD (PORCINE) 1000 UNIT/ML 10 ML VIAL IV SCH (10:00)
[2019-02-18] MEDS ORDERED: EPOETIN ALFA 10,000 UNITS/ML VIAL IV SCH (10:00)
[2019-02-18] MEDS: HEPARIN SOD (PORCINE) 1000 UNIT/ML 10 ML VIAL IV SCH ×2 (11:16→16:54)
[2019-02-18] MEDS: NEPHROCAPS PO SCH (14:26)
[2019-02-18] MEDS: TRIAMCINOLONE ACET 0.1% CR 15 GM TUBE EXT SCH ×2 (14:26→21:26)
--- NOTE | 2019-02-18 15:26 | Dialysis Progress Note ---
Date of Service February 18, 2019 Assessment & Plan (1) End stage renal disease on dialysis: on MWF HD via [facility] -seen on HD today > backed down on goal fluid removal d/t emesis > sbp was high this am -his amlodipine is on hold and agree w/ same -next HD planned tentatively for 02/21 or as clinical status dictates; not overloaded on exam -recommend bmp, hgb at least every other day >eval of N/V worse today right as we talk about d/c per Dr Townsend who is aware/following (2) Closed intertrochanteric fracture of right hip: per ortho and admitting service > s/p OR (3) Anemia due to end stage renal disease: gave 10K units epo on hd -low iron stores and getting venofer on HD as well (4) Anxiety: just had crisis intervention called 48 hrs prior to admission after dialysis; psych aware/eval'd; Dr Townsend plans to approach again > I believe that this pt's rehab will be limited possibly severely so by his depression/anxiety Subjective seen on dialysis at 1325 approx; he was having N and dry heaves on tx; did have transient bp drop but not severe and fluid removal off. d/c for today cancelled until n/v and anxiety improve Review of Systems Review of Systems: All systems reviewed & are unremarkable except as noted in HPI & below Physical Exam Constitutional: well developed, + cachectic, + frail appearing, + in distress (dry heaving, anxious) and + malnourished on RA Eyes: EOM intact bilaterally ENMT: Ears: no external ear abnormality Nose: no external nose abnormality Mouth: + dry oral mucous membranes Neck: no nuchal rigidity Respiratory: normal respiratory effort Auscultation: lungs clear to auscultation bilaterally and + diminished lung sounds Cardiovascular: Rate/Rhythm: regular rhythm and + tachycardic Extremities: + AV fistula (t/b undetectable as at previous exams); no edema Gastrointestinal (Abdomen): Inspection/Auscultation: normal bowel sounds Percussion/Palpation: + abdomen tender and abdomen soft Musculoskeletal: Extremities: strength 5/5 throughout Skin: no rashes, warm and dry + turgor decreased Neurologic: spicer, limited speech d/t dry heaves, no tremor Psychiatric: Orientation: alert and oriented x 3 Eye Contact: + fair eye contact Affect: + depressed affect and + anxious affect Results & Data Vital Signs (Past 12 Hours) Vital Signs Temp Pulse Pulse Pulse Pulse Resp BP 02/18/19 15:11 37 C 91 H 16 02/18/19 13:30 37.1 C 89 02/18/19 13:20 89 117/73 02/18/19 13:19 90 112/67 02/18/19 13:01 87 111/65 02/18/19 12:40 86 108/69 02/18/19 12:20 87 86/65 L 02/18/19 12:00 85 133/79 02/18/19 11:40 85 106/72 02/18/19 11:20 85 104/59 L 02/18/19 11:00 83 86/50 L 02/18/19 10:40 87 111/65 02/18/19 10:25 36.9 C 87 02/18/19 10:22 84 131/81 02/18/19 07:51 36.5 C 84 18 BP Pulse Ox 02/18/19 15:11 152/82 H 98 02/18/19 13:30 111/73 02/18/19 13:20 02/18/19 13:19 02/18/19 13:01 02/18/19 12:40 02/18/19 12:20 02/18/19 12:00 02/18/19 11:40 02/18/19 11:20 02/18/19 11:00 02/18/19 10:40 02/18/19 10:25 02/18/19 10:22 02/18/19 07:51 164/88 H 98 Laboratory Results 02/17/19 07:22 02/16/19 04:32 (1) Closed intertrochanteric fracture of right hip Encounter type: subsequent encounter Fracture alignment: nondisplaced Fracture healing: with routine healing Qualified Code(s): S72.144D - Nondisplaced intertrochanteric fracture of right femur, subsequent encounter for closed fracture with routine healing
[2019-02-18] MEDS ORDERED: LORazepam 0.5 MG TAB PO PRN (20:22)
[2019-02-18] MEDS: ENOXAPARIN INJ 30 MG/0.3 ML SYR SQ SCH (20:37)
--- NOTE | 2019-02-18 20:47 | Hospitalist Progress Note ---
Date of Service February 18, 2019 Assessment & Plan (1) Anxiety: severe, with concomitant depression on zoloft and wellbutrin ativan worked well on past admission for anxiety/nausea he took scheduled ativan 0.5mg BID several days ago -- did indeed help him but led to side effects including confusion/sedation ativan thus stopped clearly his panic attacks/severe anxiety are incapacitating and create considerable dysfunction in his life psych consult appreciated from earlier this stay I called and spoke with psych liason and asked them to re-consult for any other additional recommendations in light of today's events I restarted the ativan albeit at a lower dose of 0.25mg q12h prn hopefully he can tolerat this (2) Toxic encephalopathy: Resolved. likely due to prior ativan use and oxycodone use. ativan was stopped; oxycodone changed to hydrocodone. mental status at baseline again today. no evidence of metabolic etiology. cxr w/o pneumonia. recent urine cx negative. (3) Closed intertrochanteric fracture of right hip: POD #7 s/p ORIF by Dr Luevano. stable, doing well from ortho standpoint. bone biopsy w/o signs of malignancy. presumably osteoporotic fracture in context of long-standing T1DM. 25-OH vitamin D level wnl. cont pain control (see above in encephalopathy). WBAT. needs rehab - approved for [facility]. (4) End stage renal disease on dialysis: HD schedule - Thursday. [facility] assistance appreciated had left arm fistula placed recently - did not take/mature. follows with Dr Henry. (5) DM type 1 (diabetes mellitus, type 1): glycemic control per pharmacy appreciate their assistance no DKA at this time control adequate/acceptable (6) Hypertension: in light of depressed EF needs low-dose BB consider metoprolol xl low-dose in divya of coreg (former tends to cause less effect on BPs than latter) however patient has severe orthostasis following dialysis and even on non-HD days (7) CHF (congestive heart failure): Systolic - echo 10/24 showed mildly reduced EF 45% repeat echo this admission with EF of 35% Not in exacerbation; volume status appropriate Resume beta deidre if BPs will allow (8) Depression: severe, MDD. cont zoloft cont wellbutrin NUMEROUS psychosocial stressors cont outpatient counseling psych consult appreciated I re-consulted them today in light of panic attack/severe anxiety (9) Gastroparesis: severe, refractory to numerous meds tried in the last 1-2 years. follows with motility clinic at [facility] in [facility]. cont reglan symptoms exacerbated by severe anxiety disorder (10) Severe protein-calorie malnutrition: has lost 20+ kg since August 2018. much of the weight loss is in context of severe gastroparesis, depression, advancing CKD/ESRD, potentially other issues. cont nephrocaps consider remeron would supplement thiamine, etc (11) DVT prophylaxis: lovenox 30mg daily PT/OT evals -- rehab recommended -- he is agreeable accepted at [facility] hold off on d/c today because of nausea/anxiety issues maybe d/c tomorrow left message for pt's parents via voicemail - 02/18/19 care d/w psych and nephrology Subjective went to see Mr Damian while he was receiving hemodialysis. he clearly looked unwell, pale, and was holding an emesis basis. he stated he was very anxious, had severe nausea, and felt like he had to have a bowel movement. he stated he was anxious about leaving to go to [facility]. "I know I need to go but I'm just worried about going there." he mentioned that how he felt currently was similar to past episodes of severe anxiety during outpatient HD sessions. prior to HD today he had eaten breakfast and kept it down. no other new issues. Review of Systems Constitutional: no fever and no chills Respiratory: no cough and no dyspnea Cardiovascular: no chest pain Gastrointestinal: no abdominal pain, no constipation and no diarrhea/loose stools Musculoskeletal: mild right hip pain only Physical Exam Constitutional: + ill appearing, + frail appearing and + in distress (due to anxiety attack and nausea ); no acute distress ENMT: Mouth: + dry oral mucous membranes Respiratory: normal respiratory effort, lungs clear to auscultation Cardiovascular: Rate/Rhythm: regular rate and regular rhythm Heart Sounds: normal S1 and normal S2; no murmur Vessels: posterior tibial pulses present and dorsalis pedis pulses present; no JVD Extremities: no edema Gastrointestinal (Abdomen): normal bowel sounds, soft, nontender, no hepatosplenomegaly Psychiatric: Orientation: alert and oriented x 3 Affect: + anxious affect and + flat affect Results & Data Vital Signs (Past 12 Hours) Vital Signs Temp Pulse Pulse Pulse Resp BP BP 02/18/19 15:11 37 C 91 H 16 152/82 H 02/18/19 13:30 37.1 C 89 111/73 02/18/19 13:20 89 117/73 02/18/19 13:19 90 112/67 02/18/19 13:01 87 111/65 02/18/19 12:40 86 108/69 02/18/19 12:20 87 86/65 L 02/18/19 12:00 85 133/79 02/18/19 11:40 85 106/72 02/18/19 11:20 85 104/59 L 02/18/19 11:00 83 86/50 L 02/18/19 10:40 87 111/65 02/18/19 10:25 36.9 C 87 02/18/19 10:22 84 131/81 Pulse Ox 02/18/19 15:11 98 02/18/19 13:30 02/18/19 13:20 02/18/19 13:19 02/18/19 13:01 02/18/19 12:40 02/18/19 12:20 02/18/19 12:00 02/18/19 11:40 02/18/19 11:20 02/18/19 11:00 02/18/19 10:40 02/18/19 10:25 02/18/19 10:22 Laboratory Results Laboratory Results - last 24 hr 02/17/19 02/18/19 02/18/19 23:25 05:49 14:23 POC Glucose 134 H 161 H 196 H 02/18/19 02/18/19 17:16 20:44 POC Glucose 168 H 163 H PG Care Time/CCT Total # of Minutes Spent Total Time Spent with Patient: Total time spent is greater than 50% in coordination of care (as documented) at patient's floor/unit and/or counseling patient: (1) DM type 1 (diabetes mellitus, type 1) Chronic kidney disease stage: on chronic dialysis Diabetes mellitus complication detail: with chronic kidney disease Diabetes mellitus complication status: with kidney complications Qualified Code(s): E10.22 - Type 1 diabetes mellitus with diabetic chronic kidney disease; N18.6 - End stage renal disease; Z99.2 - Dependence on renal dialysis (2) CHF (congestive heart failure) Heart failure chronicity: acute Heart failure type: unspecified Qualified Code(s): I50.9 - Heart failure, unspecified (3) Depression Depression Type: other depression Qualified Code(s): F32.89 - Other specified depressive episodes (4) Hypertension Hypertension type: unspecified Qualified Code(s): I10 - Essential (primary) hypertension (5) Closed intertrochanteric fracture of right hip Encounter type: subsequent encounter Fracture alignment: nondisplaced Fracture healing: with routine healing Qualified Code(s): S72.144D - Nondisplaced intertrochanteric fracture of right femur, subsequent encounter for closed fracture with routine healing
[2019-02-19] MEDS: INSULIN HUMAN REGULAR SC SCH ×5 (00:29→13:03)
[2019-02-19] MEDS: ONDANSETRON 4 MG TAB PO PRN (06:39)
[2019-02-19 07:14] LABS: BUN Creatinine Ratio 5.7 (10-20); Calcium 8.5 mg/dl (8.5-10.1); Creatinine Clr Calc Pharmacy 12.5 ml/min; Est GFR (African American) 13.5; Est GFR (Non-African American) 11.6; Potassium 3.6 mmol/L (3.5-5.1)
[2019-02-19] MEDS: CALCIUM ACETATE 667 MG CAP PO SCH ×2 (07:46→13:33)
[2019-02-19] MEDS: METOCLOPRAMIDE HCL 5 MG TABLET PO SCH ×2 (07:46→13:33)
[2019-02-19] MEDS ORDERED: THIAMINE HCL 100 MG TAB PO SCH (09:00)
[2019-02-19] MEDS: PROCHLORPERAZINE 25 MG SUPP PR PRN (09:51)
--- NOTE | 2019-02-19 09:59 | Nephrology Progress Note ---
Date of Service February 19, 2019 Assessment & Plan (1) End stage renal disease on dialysis: on MWF HD via [facility] -seen on HD today > backed down on goal fluid removal d/t emesis > sbp was high this am -Resume amlodipine -next HD planned tentatively for 02/21 or as clinical status dictates; not overloaded on exam -recommend bmp, hgb at least every other day -Patient can be allowed to eat regular diet since he has poor appetite. He can be allowed to bring food from home as well. (2) Closed intertrochanteric fracture of right hip: per ortho and admitting service > s/p OR (3) Anemia due to end stage renal disease: gave 10K units epo on hd -low iron stores and getting venofer on HD as well (4) Anxiety: just had crisis intervention called 48 hrs prior to admission after dialysis; psych aware/eval'd; Dr Townsend plans to approach again > I believe that this pt's rehab will be limited possibly severely so by his depression/anxiety Subjective Seen in follow-up for ESRD on dialysis. He tolerated dialysis well yesterday. No shortness of breath. He has pain in the right hip. No vomiting. He continues to have poor appetite and lethargy. Review of Systems Review of Systems: All systems reviewed & are unremarkable except as noted in HPI & below Physical Exam Physical Exam: General exam: Appears comfortable, no acute distress HEENT: Pupils are equal and reactive to light Neck: No JVD, neck is supple trachea is midline Respiratory system: Clear breath sounds bilaterally. Gastrointestinal: Abdomen is soft, non distended, non tender, bowel sounds are present CVS: Regular rate and rhythm. No murmurs, rubs or gallops Musculoskeletal: No joint or muscle tenderness Extremities: Non tender, no edema, peripheral pulses are present Neuro: Oriented, no tremors, no focal neurological deficits Skin: No rashes Access: Right IJ. Maturing left upper arm AV fistula Results & Data Vital Signs (Past 12 Hours) Vital Signs Temp Pulse Resp BP Pulse Ox 02/19/19 08:00 36.8 C 98 H 18 172/90 H 98 02/18/19 23:14 36.9 C 89 14 131/70 97 Laboratory Results Laboratory Results - last 24 hr 02/18/19 02/18/19 02/18/19 14:23 17:16 20:44 Peripher Smr Path Cons Sodium Potassium Chloride Carbon Dioxide Anion Gap BUN Creatinine Est Cr Clr Drug Dosing Est GFR ( Amer) Est GFR (Non-Af Amer) BUN/Creatinine Ratio Glucose POC Glucose 196 H 168 H 163 H Calcium 02/19/19 02/19/19 02/19/19 00:09 05:57 05:57 Peripher Smr Path Cons Pending Sodium 132 L Potassium 3.6 Chloride 94 L Carbon Dioxide 25 Anion Gap 13.0 H BUN 31 H Creatinine 5.36 H* Est Cr Clr Drug Dosing 12.5 Est GFR ( Amer) 13.5 Est GFR (Non-Af Amer) 11.6 BUN/Creatinine Ratio 5.7 L Glucose 165 H POC Glucose 234 H Calcium 8.5 02/19/19 06:02 Peripher Smr Path Cons Sodium Potassium Chloride Carbon Dioxide Anion Gap BUN Creatinine Est Cr Clr Drug Dosing Est GFR ( Amer) Est GFR (Non-Af Amer) BUN/Creatinine Ratio Glucose POC Glucose 171 H Calcium (1) Closed intertrochanteric fracture of right hip Encounter type: subsequent encounter Fracture alignment: nondisplaced Fracture healing: with routine healing Qualified Code(s): S72.144D - Nondisplaced intertrochanteric fracture of right femur, subsequent encounter for closed fracture with routine healing
--- NOTE | 2019-02-19 13:05 | Discharge Summary ---
Date of Service February 19, 2019 Admission HPI Per Admitting Provider This is a patient who sustained a fall and landed on the right hip. He had difficulty with ambulation secondary to right hip pain. He came to [facility] where he was noted to have a right intertroch fx. He is being set up for surgical management. He tells me that the fall was simply a matter of his losing his balance while walking to a parking lot, and notes that he had been using a cane because he had existing right hip pain. Psychiatry has been consulted because of a complaint of "severe anxiety." The patient tells us that he has been anxious for a number years, primarily subsequent to his divorce. He is currently being treated on an outpatient basis for psychiatric complaints that include depression, anxiety, and panic episodes at a mental health group known as "[place]." As noted above, when I asked the patient about his anxiety he did not describe "severe" anxiety but, instead, says that he can become generally anxious intermittently, and that he has found that he is able to manage his anxiety fairly well through the use of deep breathing exercises ("and through the nose, out through the mouth slowly") and demonstrates the exercise for me. The patient also demonstrates how he does a Valsalva maneuver as a way of relieving tension and anxiety. He reports that he has occasional panic episodes, perhaps once every week or two, and they consist of shortness of breath without palpitations, but with diaphoresis and occasionally with paresthesias (both hands and both feet). The episodes last a matter of several minutes, but he may continue to feel uneasy for as long as 40 minutes because of his tendency to perspire during these episodes. He takes lorazepam 0.5 mg up to twice a day for panic episodes, but generally does not use them for other purposes. We discussed the option of sublingual use of lorazepam as a intervention for panic episodes. We also discussed options that can include a longer acting benzodiazepine for generalized anxiety, but the patient says that he feels that he only needs lorazepam at 0.5 mg when he is having a panic episode, or is beginning to have one. Further, the patient reports favorable response in terms of depression and anxiety to a combination of Zoloft and Wellbutrin. It has been reported that the patient has certain complaints consistent with depression, such as apathy and marriage, but today the patient tells me that he is not feeling depressed, his mood has generally been "good," and although he has periodically experience mood alterations these, as described, would not be consistent with clinical depression nor with chetan or hypomania. A history of adherence with his psychiatric medications is noted. He is able to tell me the correct dose and purpose of each of his 3 psychiatric medications (sertraline, Wellbutrin, and lorazepam). We discussed the fact that he is likely to be transferred to a rehab facility for physical therapy while recovering from surgery for his right hip fracture. The patient says that he understands that this will be necessary and he is hoping for a full recovery. He reports that currently he is not experiencing any pain and says that his mood has been "good" and "calm." Discharge Exam Constitutional + ill appearing, + frail appearing and + in distress (due to anxiety attack and nausea ); no acute distress ENMT external ear and nose normal, oropharynx normal Mouth: + dry oral mucous membranes Respiratory normal respiratory effort, lungs clear to auscultation Auscultation: + crackles (focal, left base - with wheeze; rest of lung exam wnl) Cardiovascular Rate/Rhythm: regular rate and regular rhythm Heart Sounds: normal S1 and normal S2; no murmur Vessels: posterior tibial pulses present and dorsalis pedis pulses present; no JVD Extremities: no edema Gastrointestinal (Abdomen) normal bowel sounds, soft, nontender, no hepatosplenomegaly Psychiatric Orientation: alert and oriented x 3 Affect: + anxious affect and + flat affect Discharge Data Allergies Allergy/AdvReac Type Severity Reaction Status Date / Time shellfish derived Allergy Severe anaphylaxis Verified 02/10/19 12:11 codeine Allergy Intermediate Hives Verified 02/10/19 12:11 promethazine Allergy Intermediate itchy/hives Verified 02/10/19 12:11 Consultations 02/10/19 15:14 ED Decision to Admit Stat 02/10/19 15:28 Consult General Surgery Routine Consult Nephrology Routine 02/11/19 19:18 Consult Case Management - Discharge Planning Routine 02/15/19 09:04 Consult Psychiatry Routine Procedures Performed Operation Date: 02/11/19 09:20 Actual Procedures p Right Intermedullary Trochanteric Nailing and Bone biopsy right proximal femur(Right) - Sean Luevano, Ordered Studies 02/10/19 12:25 MR hip RT wo con Stat 02/11/19 FL fluoroscopy <1hr Routine FL hip RT 2-3V Routine Hospital Course (1) Anxiety: severe, with concomitant depression on zoloft and wellbutrin ativan worked well on past admission for anxiety/nausea he took scheduled ativan 0.5mg BID several days ago -- did indeed help him but led to side effects including confusion/sedation ativan thus stopped clearly his panic attacks/severe anxiety are incapacitating and create considerable dysfunction in his life psych consult appreciated from earlier this stay I called and spoke with psych liason and asked them to re-consult for any other additional recommendations in light of today's events I restarted the ativan albeit at a lower dose of 0.25mg q12h prn hopefully he can tolerat this (2) Toxic encephalopathy: Resolved. likely due to prior ativan use and oxycodone use. ativan was stopped; oxycodone changed to hydrocodone. mental status at baseline again today. no evidence of metabolic etiology. cxr w/o pneumonia. recent urine cx negative. (3) Closed intertrochanteric fracture of right hip: POD #7 s/p ORIF by Dr Luevano. stable, doing well from ortho standpoint. bone biopsy w/o signs of malignancy. presumably osteoporotic fracture in context of long-standing T1DM. 25-OH vitamin D level wnl. cont pain control (see above in encephalopathy). WBAT. needs rehab - approved for [facility]. (4) End stage renal disease on dialysis: HD schedule - Thursday. [facility] assistance appreciated had left arm fistula placed recently - did not take/mature. follows with Dr Henry. (5) DM type 1 (diabetes mellitus, type 1): glycemic control per pharmacy appreciate their assistance no DKA at this time control adequate/acceptable (6) Hypertension: in light of depressed EF needs low-dose BB consider metoprolol xl low-dose in divya of coreg (former tends to cause less effect on BPs than latter) however patient has severe orthostasis following dialysis and even on non-HD days (7) CHF (congestive heart failure): Systolic - echo 10/24 showed mildly reduced EF 45% repeat echo this admission with EF of 35% Not in exacerbation; volume status appropriate Resume beta deidre if BPs will allow (8) Depression: severe, MDD. cont zoloft cont wellbutrin NUMEROUS psychosocial stressors cont outpatient counseling psych consult appreciated I re-consulted them today in light of panic attack/severe anxiety (9) Gastroparesis: severe, refractory to numerous meds tried in the last 1-2 years. follows with motility clinic at [place] in [facility]. cont reglan symptoms exacerbated by severe anxiety disorder (10) Severe protein-calorie malnutrition: has lost 20+ kg since August 2018. much of the weight loss is in context of severe gastroparesis, depression, advancing CKD/ESRD, potentially other issues. cont nephrocaps consider remeron would supplement thiamine, etc (11) DVT prophylaxis: lovenox 30mg daily PT/OT evals -- rehab recommended -- he is agreeable accepted at [facility] hold off on d/c today because of nausea/anxiety issues maybe d/c tomorrow left message for pt's parents via voicemail - 02/18/19 care d/w psych and nephrology Discharge Plan Discharge Items Patient Disposition: Transfer Inpatient Rehab Fac Reason For Visit: INTRATROCHANTERIC FRACTURE of right hip Discharge Diagnosis: 1. right hip fracture s/p ORIF by Dr Rodríguez Luevano on 02/11/19 2. severe depression 3. severe anxiety disorder 4. severe gastroparesis 5. failure to thrive 6. ESRD on HD M// - coordinated by [facility] Goals: 1. repair broken right hip 2. treat anxiety 3. treat chronic nausea 4. hemodialysis Activity: Per Instructions section Bathing Comment: ok to shower Weightbearing: Right weightbearing Weightbearing Comment: as tolerated Non-emergency contact: Primary Care Provider, Surgeon, Loan Processor, Case Management Director and Psychiatrist Call non-emergency contact if: you have any medication questions, your symptoms worsen, your pain is not controlled, your pain is worsening, your pain is unusual for you, your pain is concerning for you, your wound has increased redness, your wound has increased drainage and your wound pain has increased Follow-up/Referrals: Manny Spivey MD [Physician] - (see Dr Spivey 2-3 weeks; dx - chronic systolic CHF) Cory Celestin MD [Primary Care Provider] - (see primary care physician after discharge from [facility] ) Sean Luevano DO [Surgeon] - (see Dr Luevano in 1 week for incision check (right hip)) Diet: Carb Count or DM1 and Dialysis Renal Fluids: 1500ml (6 cups) Addtl Attending Provider Instructions: 1. see Dr Spivey or any of his associates - [facility] cardiology - in 2-3 weeks for chronic systolic CHF 2. resume hemodialysis schedule of Thursday/Thursday/Thursday this coming Thursday 3. patient has scheduled appointment with Dr Jorge Henry - [facility] vascular surgery - this coming week for his left arm fistula 4. patient should be seen by his counselor for severe depression/anxiety as scheduled 5. check fingerstick blood sugar checks before meals and bedtime 6. check orthostatic blood pressures daily; if POSITIVE please inform medical voucher clerk 7. patient generally takes zofran and ativan prior to dialysis sessions due to severe anxiety and severe nausea return to [facility] if -- * you have fever over 100.5 degrees * you have worsening shortness of breath * you have intractable/persistent nausea and/or vomiting * you have anxiety/panic that won't remit despite taking ativan * any other concerns Addtl Pt Escort Provider Instructions: [facility] DISCHARGE INSTRUCTIONS: HIP FRACTURE SELF CARE INSTRUCTIONS: A. You are to ambulate with a walker or crutches for approximately 6 weeks. B. You are WEIGHT BEARING TOLERATED on your operative lower extremity for at least 6 weeks. C. Wear low heeled shoes with non-slip soles D. Be sure that your floors are free of things that could trip you throw rugs, electrical cords, and small objects. Avoid wet and waxed floors, especially with crutches/walker/cane. E. Try to walk several times a day with rest periods between. F. You may shower 48 hours after surgery and get the incision area wet, but DO NOT soak or submerge incision area in water. (No baths, swimming pools, hot tubs) G. You may have a large, band-aid like dressing over your incision (Aquacel). This will remain on your incision for 7 days, and then can be removed. You CAN shower with this on. If incision is leaking through the dressing, please call the office . H. Do NOT apply soap or any ointment/lotions directly over incision. I. You may use ice as needed to operative site. SPECIAL CARE INSTRUCTIONS: VERY IMPORTANT TO READ AND REVIEW A. You may be at risk for phlebitis or blood clots. a. Wear surgical stockings (NELLIE hose) for 2 weeks after surgery to improve circulation and reduce swelling. b. Take LOVENOX 30mg SQ daily for 4 weeks or as directed. This is your blood thinner. c. If you are on Coumadin- you will have daily/weekly blood work to monitor your levels. This will be done by either your family physician/cardroom hand (if you are on Coumadin chronically) versus your orthopedic surgeon. Expect a phone call the day of or the day after your blood work is drawn to adjust your dose accordingly. B. There are a few signs you need to watch for after you are home. Call [facility] at [phone] if you experience any of the following: a. If you have a temperature of 101 degrees or higher. b. Sudden increase in pain in your hip not relieved by rest or pain medication. c. Any fluid or drainage from the incision; redness of the incision. d. Shortness of breath or chest pain. C. Call your physician if: a. Temperature is greater than 101 degrees (F). b. Pain is not relieved by prescribed pain medications. c. Increase drainage or redness from incision. d. Unanswered questions or concerns. D. Pain Medication: a. You will be prescribed pain medication upon discha rge that should last till your first post-operative appointment. b. If you experience nausea and/or skin rash, discontinue this medication and contact our office for an alternative medication. c. Caution- narcotic pain medication can cause constipation. FOLLOW UP VISIT: Please call [facility] at [phone] to schedule a follow up appointment 10-14 days from the date of your surgery date. Pending Studies at Discharge: No Stand-Alone Forms: My [facility] [employer] Skilled Items Patient informed of condition?: Yes DNR: No Discharge Level of Care: Acute rehab Communicable Disease: No Discharge Prognosis: Stable Lines: Saline Lock Urinary Catheter: No Medications and DC Order Prescriptions: New hydrocodone-acetaminophen [Hamilton] 5-325 mg Tablet 1 tab PO Q6H PRN (Reason: pain) Qty: 10 RF: 0 thiamine HCl (vitamin B1) [Vitamin B-1] 100 mg Tablet 200 mg PO BID 30 Days Qty: 120 RF: 0 triamcinolone acetonide 0.1 % Cream 1 applic EXT TID Qty: 30 RF: 0 ferrous sulfate 325 mg (65 mg iron) Tablet,Delayed Release (Dr/Ec) 325 mg PO QAM Qty: 30 RF: 1 enoxaparin [Lovenox] 30 mg/0.3 mL Syringe 30 mg subcut Q24H 21 Days Qty: 6.3 RF: 0 metoprolol succinate [Toprol XL] 25 mg tablet extended release 24 hr 25 mg PO DAILY Qty: 30 RF: 5 Continued ondansetron HCl [Zofran] 4 mg tablet 4 mg PO TID PRN (Reason: Nausea And Vomiting) RF: 0 atorvastatin 10 mg tablet 10 mg PO QAM RF: 0 cholecalciferol (vitamin D3) [Vitamin D3] 2,000 unit Capsule 2,000 unit PO QAM RF: 0 metoclopramide HCl 5 mg tablet 5 mg PO TID RF: 0 prochlorperazine [Compazine] 25 mg suppository 25 mg OR BID PRN (Reason: Nausea) RF: 0 Averill Caps 1 mg capsule 1 cap PO QAM RF: 0 calcium acetate 667 mg capsule 667 mg PO TIDM MDD 7 CAPSULES/DAY RF: 0 famotidine 20 mg Tablet 20 mg PO QAM Qty: 30 RF: 5 sertraline 100 mg tablet 200 mg PO QAM Qty: 60 RF: 0 aprepitant 80 mg capsule 80 mg PO WK RF: 0 bupropion HCl 100 mg tablet sustained-release 12 hr 100 mg PO QAM RF: 0 insulin lispro [Admelog SoloStar U-100 Insulin] 100 unit/mL insulin pen See Rx Instructions subcut DAILY PRN (Reason: sliding scale) RF: 0 Basaglar KwikPen U-100 Insulin 100 unit/mL (3 mL) insulin pen 13 units SQ DAILY@0930 RF: 0 Changed lorazepam [Ativan] 0.5 mg Tablet 0.25 mg PO Q12H PRN (Reason: Anxiety) Qty: 30 RF: 0 Discontinued amlodipine 10 mg tablet 10 mg PO DAILY RF: 0 carvedilol 3.125 mg Tablet 3.125 mg PO BID Qty: 60 RF: 5 Discharge Orders: Discharge Order (Routine); Ordered 02/19/19 Ordered By: Guevara Townsend Admission Data Admit Date/Time: 02/10/19 15:23 Attending Provider: Guevara Townsend Admit Provider: Lisa Collier Primary Care Provider: Cory Celestin Other Providers: Sergo Rey ; Lisa Collier ; Sean Luevano ; Lor Guadalupe ; Estefania Sutton
[2019-02-19] MEDS: FERROUS SULFATE 325 MG TAB PO SCH (13:31)
[2019-02-19] MEDS: TRIAMCINOLONE ACET 0.1% CR 15 GM TUBE EXT SCH (13:31)
[2019-02-19] MEDS: FAMOTIDINE 20 MG TAB PO SCH (13:32)
[2019-02-19] MEDS: CHOLECALCIFEROL 1,000 UNITS TAB PO SCH (13:32)
[2019-02-19] MEDS: NEPHROCAPS PO SCH (13:32)
[2019-02-19] MEDS: BuPROPion SR 100 MG TABCR PO SCH (13:32)
[2019-02-19] MEDS: SERTRALINE HCL 100 MG TABLET PO SCH (13:32)
[2019-02-19] MEDS: ATORVASTATIN 10 MG TAB PO SCH (13:32)
== END 2019-02-19 14:29 | DRG 480 ==
LOC: ED 10:01 → 2N 15:23 → SUATTDRO 15:23 → 2N 16:47 → 2S 20:05 → 3W 02-17 15:38

== ENCOUNTER 2019-03-21 15:57 | Inpatient (IN) ==
[2019-03-21] MEDS ORDERED: DiphenhydrAMINE HCL 50 MG/ML VIAL IV STA (16:12)
[2019-03-21] MEDS ORDERED: LABETALOL HCL IV 5 MG/ML 20ML IV STA (16:12)
[2019-03-21] MEDS ORDERED: ONDANSETRON INJ 2 MG/ML 2 ML VIAL IV STA (16:12)
[2019-03-21] MEDS ORDERED: MoRPHine SULFATE 2 MG/ML CARP IV STA (16:14)
--- NOTE | 2019-03-21 16:25 | Emergency Department Note ---
Entered by Rhina Damon acting as a scribe for History of Present Illness General Chief complaint: Hypertension Stated complaint: HIGH BLOOD PRESSURE,DIABETIC,VOMITING,NAUSEA Time Seen by Provider: 03/21/19 16:04 Source: patient and family History of Present Illness Onset (ago): hour(s) 6 Location: head Pain Consistency: + constant Maximum Pain Intensity: 3 Current Pain Intensity: 3 Quality: + other (Headache) Relieved By: not by medication (Tylenol) Exacerbated By: + other (Bright light) Associated symptoms: + headaches and + nausea/vomiting; no chest pain, no short ness of breath and no other (Abdominal pain) Treatments prior to arrival: other (Ativan, Tylenol) The patient is a 48 year old male with a past medical history of ESRD, CAD and DM presenting to the Emergency Department complaining of a constant headache starting 6 hours ago. The patient reports that he has a headache towards the front of his head. He currently rates his pain 3/10. He explains that he is nauseous and has vomited. He notes that he took Tylenol at 1000 today for his headache that did not help relieve his headache. He adds that bright light worsens his headache. The patient reports that he received dialysis this morning and that his headache started after this treatment. He denies chest pain, shortness of breath, abdominal pain, history of migraines and regular use of blood thinners. The patients father reports that the patient did not take his Carvedilol this am but did take it after dialysis. He states that the patients blood glucose has been running a little high but that SAS PROGRAMMER ANALYST it was 92. He explains that the patient has had one of his blood pressure medications recently switched by Dr. Gracia (from Metoprolol to Coreg) Science Faculty Member. He notes that he gave the patient Ativan and Zofran SAS PROGRAMMER ANALYST. Home Medications Home Medications Medication Instructions Recorded Confirmed Type Yell Caps 1 cap PO QAM 12/19/18 03/21/19 History calcium acetate 667 mg PO TIDM MDD 7 CAPSULES/DAY 12/19/18 03/21/19 History atorvastatin 10 mg tablet 10 mg PO QAM tab 01/06/19 03/21/19 History ondansetron HCl 4 mg tablet 4 mg PO QID PRN 01/12/19 03/21/19 History Basaglfrancy Mayers U-100 Insulin 18 units SQ DAILY@0930 08/26/19 10/14/19 History aprepitant 80 mg PO UD PRN 01/31/19 03/21/19 History bupropion HCl 100 mg PO QAM 01/31/19 03/21/19 History insulin lispro [Admelog SoloStar See Rx Instructions SUBCUT DAILY 01/31/19 03/21/19 History U-100 Insulin] PRN triamcinolone acetonide 1 applic EXT TID #30 g 02/19/19 03/21/19 Rx acetaminophen 325 mg tablet 650 mg PO .COMPLEX PRN tab 03/10/19 03/21/19 History carvedilol 3.125 mg tablet 3.125 mg PO BID #60 tab 03/10/19 03/21/19 Rx famotidine 20 mg tablet 20 mg PO QAM tab 03/10/19 03/21/19 History metoclopramide 5 mg tablet 5 mg PO Q6H tab 03/10/19 03/21/19 History pen needle, diabetic 32 gauge x #200 ea 03/10/19 03/10/19 Rx " amlodipine 10 mg PO QAM 03/21/19 03/21/19 History cholecalciferol (vitamin D3) 2,000 unit PO QAM 03/21/19 03/21/19 History lorazepam 0.5 mg SUBLINGUAL Q6H PRN 03/21/19 03/21/19 History sertraline 100 mg PO QAM 03/21/19 03/21/19 History Allergies Allergy/AdvReac Type Severity Reaction Status Date / Time shellfish derived Allergy Severe anaphylaxis Verified 03/21/19 17:45 codeine Allergy Intermediate Hives Verified 03/21/19 17:45 promethazine Allergy Intermediate itchy/hives Verified 03/21/19 17:45 Past Med/Surg History Medical History DM (diabetes mellitus) CAD (coronary artery disease) mild, non-obstructive CAD per 10/2018 cardiac cath ESRD (end stage renal disease) Hemodialysis M,W,F (Follows with Dr. Taylor Higgins; [facility] Kidney stones Peripheral neuropathy Retinopathy due to secondary diabetes Surgical History H/O shoulder surgery RIGHT History of appendectomy History of cardiac cath 10/2018= no stents, no obstructive disease (at [facility]) History of hip surgery LEFT HIP ARTHROSCOPY History of lithotripsy Permanent central venous catheter in place Permacath Family History Grandfather Myocardial infarction Grandfather (Maternal) Family history of diabetes mellitus Uncle Myocardial infarction Social History Preferred Language: Macedonian Communication Ability: Effective Visual Impairment: No Limitations Hearing Ability: Normal Cloth Drier Required: No Beliefs That Will Affect Care: None marital status: Current Living Situation: Parent current occupational status: unemployed Feels Safe at Home: Yes Smoking Status: Never smoker Tobacco Type: smokeless tobacco ; Second Hand Exposure: No ; Hx Alcohol Use: No Hx Substance Use: No Childhood Exposure to Second-Hand Smoke: Yes Dental Care, Regularly: No Physical Activity Frequency: 1-2 Times per Week Seatbelt Use: always Sunscreen Use: No Review of Systems See HPI for pertinent positives & negatives. and A total of 10 systems reviewed and were otherwise negative Physical Exam Vital Signs Vital Signs - 24 hr 03/21/19 16:00 03/21/19 16:55 03/21/19 17:15 Temperature 36.5 C Temperature Source Oral Sepsis Recent Fever Within 48 Hours No Sepsis New/Unexplained Change in Mental Status No Sepsis Action Taken by Nursing No Action Required Pulse Rate 94 H Pulse Rate [Apical] 83 82 Respiratory Rate 20 12 18 Respiratory Effort / Characteristics Non-Labored Spontaneous Blood Pressure 208/115 H Blood Pressure [Left Arm] 216/126 H 196/118 H Blood Pressure Mean 146 Blood Pressure Mean [Left Arm] 156 144 Blood Pressure Position Sitting Pulse Oximetry 100 95 97 Oxygen Delivery Method Room Air Room Air GENERAL: Patient is in moderate distress. He is in pain and vomiting. HEENT: No acute trauma, normocephalic atraumatic, mucous membranes moist, no nasal congestion, no scleral icterus. NECK: No stridor, no adenopathy, no meningismus, trachea is midline. LUNGS: Clear to auscultation bilaterally, no wheeze, no rhonchi, breath sounds equal. HEART: 2/6 systolic murmur. Regular rate and rhythm. CHEST: Dialysis catheter in right chest wall. ABDOMEN: Soft, nontender, bowel sounds positive, no hernias, no peritonitis. EXTREMITIES: No cyanosis or edema, full range of motion of all the joints without pain or difficulty, no signs for acute trauma. NEUROLOGIC: Oriented x 3, no acute motor or sensory deficits, no focal weakness. SKIN: No rash, no jaundice, no diaphoresis. Course 1604: EMR reviewed. Patient received dialysis this morning. He now has a headache, high blood pressure and is sweating. It is reported that the patient is compliant with all of his blood pressure medications. 1606: The patient was evaluated in room B9, and a complete history and physical examination were performed. 1732: I reevaluated the patient at this time who reports that he is still very nauseated. He states that his headache has improved but that it is still present. His blood pressure is somewhat improved. 1738: I discussed the patients case with Dr. Maggy PLUMMER hospitalist. He will evaluate the patient for further management. Administered Medications Carvedilol (Coreg) 3.125 mg PO BID JACKI Stop: 04/20/19 21:17 Last Admin: 03/21/19 21:56 Dose: Not Given Documented by: [id number] Hydralazine HCl (Hydralazine Hcl) 10 mg IV Q4H PRN PRN Reason: SBP > 180 or DBP > 110 Stop: 04/20/19 21:17 Last Admin: 03/21/19 21:56 Dose: 10 mg Documented by: [id number] Sodium Chloride (Nss 1000ml) 1,000 mls @ 80 mls/hr IV .[id number] JACKI Stop: 03/22/19 09:47 Last Admin: 03/21/19 21:55 Dose: 80 mls/hr Documented by: [id number] Discontinued Medications Diphenhydramine HCl (Benadryl) 12.5 mg IV NOW STA Stop: 03/21/19 16:13 Last Admin: 03/21/19 16:44 Dose: 12.5 mg Documented by: [id number] Hydralazine HCl (Hydralazine Hcl) 10 mg IV NOW STA Stop: 03/21/19 17:16 Last Admin: 03/21/19 17:20 Dose: 10 mg Documented by: [id number] Prochlorperazine 5 mg/ Syringe 5 mls @ 5 mls/min IV UD PRN PRN Reason: Nausea And Vomiting Stop: 04/20/19 17:33 Last Admin: 03/21/19 18:16 Dose: 5 mls/min Documented by: [id number] Lorazepam (Ativan) 0.5 mg in 1 mls @ 1 mls/min IV NOW STA Stop: 03/21/19 17:35 Last Admin: 03/21/19 18:12 Dose: 1 mls/min Documented by: [id number] Labetalol HCl (Normodyne) 20 mg IV NOW STA Stop: 03/21/19 16:13 Last Admin: 03/21/19 16:44 Dose: 20 mg Documented by: [id number] Cosigned by: [id number] Miscellaneous (Patient's Height And/Or Weight Needed) 1 ea N/A Q2H JACKI Stop: 04/20/19 21:44 Last Admin: 03/21/19 22:13 Dose: 1 ea Documented by: [id number] Morphine Sulfate (Morphine Sulfate) 2 mg IV NOW STA Stop: 03/21/19 16:15 Last Admin: 03/21/19 16:43 Dose: 2 mg Documented by: [id number] Ondansetron HCl (Zofran) 4 mg IV NOW STA Stop: 03/21/19 16:13 Last Admin: 03/21/19 16:44 Dose: 4 mg Documented by: [id number] Prochlorperazine (Compazine) Confirm Administered Dose 10 mg .ROUTE .STK-MED ONE Stop: 03/21/19 18:08 Last Admin: 03/21/19 18:15 Dose: Not Given Documented by: [id number] Medical Decision Making Differential Diagnosis Differentials include intracranial bleeding, migraine headache, uncontrolled hypertension, CO, electrolyte imbalance, anemia, viral illness and missed medication amongst others. Medical Records Attestation: I reviewed the patient's medical records. Home Medications Current Medication List: was personally reviewed by me Laboratory Data Attestation: I reviewed the patient's lab results. Result diagrams: 03/21/19 16:38 03/21/19 16:38 Lab Results 03/21/19 03/21/19 03/21/19 Range/Units 16:36 16:38 16:38 WBC 10.92 H (4.8-10.8) K/uL RBC 4.08 L (4.7-6.1) M/uL Hgb 14.1 (14.0-18.0) g/dL Hct 41.3 L (42-52) % MCV 101.2 H (80-100) fL MCH 34.6 H (25-34) pg MCHC 34.1 (32-36) g/dL RDW Std Deviation 62.4 H (36.4-46.3) fL RDW Coeff of Kami 16.9 H (11.5-14.5) % Plt Count 376 (130-400) K/uL MPV 8.8 (7.4-10.4) fL Immature Gran % (Auto) 0.8 % Neut % (Auto) 76.2 % Lymph % (Auto) 10.9 % Ballard % (Auto) 10.3 % Eos % (Auto) 1.3 % Baso % (Auto) 0.5 % Immature Gran # (Auto) 0.09 H (0.00-0.02) K/uL Neut # (Auto) 8.32 H (1.4-6.5) K/uL Lymph # (Auto) 1.19 L (1.2-3.4) K/uL Ballard # (Auto) 1.12 H (0.11-0.59) K/uL Eos # (Auto) 0.14 (0-0.5) K/uL Baso # (Auto) 0.06 (0-0.2) K/uL Sodium 131 L (136-145) mmol/L Potassium 4.2 (3.5-5.1) mmol/L Chloride 97 L (98-107) mmol/L Carbon Dioxide 27 (21-32) mmol/L Anion Gap 7.0 (3-11) BUN 24 H (7-18) mg/dl Creatinine 2.59 H (0.6-1.4) mg/dl Est Cr Clr Drug Dosing Not Reportable Est GFR ( Amer) 32.5 Est GFR (Non-Af Amer) 28.0 BUN/Creatinine Ratio 9.1 L (10-20) Glucose 72 (70-99) mg/dl POC Glucose 77 (70-99) Calcium 9.4 (8.5-10.1) mg/dl Magnesium 2.2 (1.8-2.4) mg/dl Total Bilirubin 0.4 (0.2-1) mg/dl AST 22 (15-37) U/L ALT 30 (12-78) U/L Alkaline Phosphatase 207 H (45-117) U/L Troponin I < 0.015 (0-0.045) ng/ml Total Protein 8.4 H (6.4-8.2) gm/dl Albumin 4.0 (3.4-5.0) gm/dl Globulin 4.4 H (2.5-4.0) gm/dl Albumin/Globulin Ratio 0.9 (0.9-2) TSH 2.870 (0.300-4.500) uIu/ml Imaging Data Radiologist's Impression: Radiology results as stated below per my review and the radiologist's interpretation: CT head/brain wo con CLINICAL HISTORY: Headache, hypertension. COMPARISON STUDY: MRI dated 12/27/2018, CT scan dated 10/30/2018 TECHNIQUE: Axial CT of the brain is performed from the vertex to the skull base. IV contrast was not administered for this examination. A dose lowering technique was utilized adhering to the principles of ALARA. CT DOSE: 537.48 mGy.cm FINDINGS: No intra or extra-axial mass lesions are visualized. There is no CT evidence of acute cortical infarction. There is no evidence of midline shift. There is no acute hemorrhage. No calvarial fractures are visualized. There is no evidence of pathologic ventricular dilatation. There is no evidence of acute sinusitis IMPRESSION: Normal noncontrast head CT. Electronically signed by: Geovanny Moncada M.D. 03/21/2019 5:10 PM ECG Data Attestation: I personally reviewed and interpreted this ECG as follows: Indication: nausea and vomiting Rate (beats per minute): 93 Rhythm: normal sinus Findings: + other (QTC 504.); no ST elevation and no ectopy Blood Pressure Blood Pressure Findings: Elevated blood pressure Blood Pressure Disposition: further management by hospitalist DAVID Narrative There is a very mild leukocytosis, the patient has a history of the same. No concerning anemia. The patient has a normal platelet count. Renal panel testing shows a higher creatinine consistent with his dialysis need. No concerning electrolyte abnormality. Alk phos was slightly elevated, the bilirubin was normal. The patient appeared to be in a euthyroid state. EKG showed a sinus rhythm, no acute ischemia. Cardiac enzyme testing x1 is not consistent with acute cardiac injury. Brain CT shows no acute bleed or mass- effect. The patient presents with a very high blood pressure, headache and vomiting. He was given IV labetalol, IV Zofran and IV Benadryl. He also received IV hydralazine, IV morphine and IV Compazine. The patient is no longer vomiting but is still nauseated. He has a mild headache although the headache is improved from when he arrived. His blood pressure is still high but lower than when he first arrived. I do think the patient requires a hospital stay. He has uncontrolled high blood pressure. He is vomiting, he has a headache. He is not stable for discharge. I suspect the higher blood pressure is responsible for all his symptoms. I did speak with the patient and case management. The on-call hospitalist was consulted. Impression & Plan Uncontrolled hypertension, Headache, Vomiting Discharge Plan Visit Data *Final* Discharge Date/Time: 03/21/19 20:23 Chief Complaint: Hypertension Stated Complaint: HIGH BLOOD PRESSURE,DIABETIC,VOMITING,NAUSEA ED Provider: Dev Morgan Discharge Problem: Uncontrolled hypertension, Headache, Vomiting Patient Disposition: Admitted As Inpatient Discharge Instructions Interventions: ED Discharge Assessment Last Done: 03/21/19 20:23 Discharge Problem: Headache Qualifiers: Headache type: unspecified Headache chronicity pattern: acute headache Intractability: intractable Qualified Code(s): R51 - Headache Vomiting Qualifiers: Vomiting type: unspecified Vomiting Intractability: non-intractable Nausea presence: with nausea Qualified Code(s): R11.2 - Nausea with vomiting, unspecified The eliazariblorene's documentation has been prepared under my direction and personally reviewed by me in its entirety. I confirm that the note above accurately reflects all work, treatment, procedures, and medical decision making performed by me.
[2019-03-21 16:49] LABS: Basophils # (auto) 0.06 K/uL (0-0.2); Basophils % (auto) 0.5 %; Eosinophils # (auto) 0.14 K/uL (0-0.5); Eosinophils % (auto) 1.3 %; Hematocrit (blood only) 41.3 % (42-52); Hemoglobin 14.1 g/dL (14.0-18.0); Immature Granulocytes # (auto) 0.09 K/uL (0.00-0.02); Immature Granulocytes % (auto) 0.8 %; Lymphocytes # (auto) 1.19 K/uL (1.2-3.4); Lymphocytes % (auto) 10.9 %; Mean Corpuscular Hemoglobin 34.6 pg (25-34); Mean Corpuscular Hgb Conc 34.1 g/dL (32-36); Mean Corpuscular Volume 101.2 fL (80-100); Mean Platelet Volume 8.8 fL (7.4-10.4); Monocytes # (auto) 1.12 K/uL (0.11-0.59); Monocytes % (auto) 10.3 %; Neutrophils # (auto) 8.32 K/uL (1.4-6.5); Neutrophils % (auto) 76.2 %; Platelet Count 376 K/uL (130-400); RDW Coefficient of Variation 16.9 % (11.5-14.5); RDW Standard Deviation 62.4 fL (36.4-46.3); Red Blood Count 4.08 M/uL (4.7-6.1); White Blood Count 10.92 K/uL (4.8-10.8)
[2019-03-21 17:09] LABS: Alanine Aminotransferase 30 U/L (12-78); Aspartate Aminotransferase 22 U/L (15-37); BUN Creatinine Ratio 9.1 (10-20); Blood Urea Nitrogen 24 mg/dl (7-18); Calcium 9.4 mg/dl (8.5-10.1); Carbon Dioxide 27 mmol/L (21-32); Chloride 97 mmol/L (98-107); Est GFR (African American) 32.5; Glucose 72 mg/dl (70-99); Magnesium 2.2 mg/dl (1.8-2.4); Potassium 4.2 mmol/L (3.5-5.1); Sodium 131 mmol/L (136-145)
--- NOTE | 2019-03-21 17:11 | CT Scan Report ---
CT head/brain wo con CLINICAL HISTORY: Headache, hypertension. COMPARISON STUDY: MRI dated 12/27/2018, CT scan dated 10/30/2018 TECHNIQUE: Axial CT of the brain is performed from the vertex to the skull base. IV contrast was not administered for this examination. A dose lowering technique was utilized adhering to the principles of ALARA. CT DOSE: 537.48 mGy.cm FINDINGS: No intra or extra-axial mass lesions are visualized. There is no CT evidence of acute cortical infarc tion. There is no evidence of midline shift. There is no acute hemorrhage. No calvarial fractures ar e visualized. There is no evidence of pathologic ventricular dilatation. There is no evidence of acute sinusitis IMPRESSION: Normal noncontrast head CT. Electronically signed by: Geovanny Moncada M.D. 03/21/2019 5:10 PM
[2019-03-21] MEDS ORDERED: HydrALAZINE HCL 20 MG/ML VIAL IV STA (17:15)
[2019-03-21 17:20] LABS: Albumin Globulin Ratio 0.9 (0.9-2); Alkaline Phosphatase 207 U/L (45-117); Bilirubin,Total 0.4 mg/dl (0.2-1); Globulin 4.4 gm/dl (2.5-4.0); Total Protein 8.4 gm/dl (6.4-8.2); Troponin I < 0.015 ng/ml (0-0.045)
[2019-03-21] MEDS ORDERED: LORazepam 0.5 MG/1 ML VIAL IV STA (17:34)
[2019-03-21] MEDS ORDERED: PROCHLORPERAZINE 5 MG in SYRINGE 4 ML IV PRN (17:34)
[2019-03-21] MEDS ORDERED: PROCHLORPERAZINE 5 MG/ML 2 ML VIAL ONE (18:07)
--- NOTE | 2019-03-21 18:49 | History & Physical Report ---
Date of Service March 21, 2019 Assessment & Plan (1) Vomiting: Has had recurrent bouts of uncontrolled emesis. - Continue Zofran & Reglan IV - Monitor QTc - Will discuss starting another trial of his aprepitant (2) Uncontrolled hypertension: BP up to 215/120 in the ED. Usually runs low-normal on his BP meds. - Continue home meds as able with emesis - Hydralazine PRN (3) ESRD (end stage renal disease): Follows with Dr. Guadalupe. Reports he got his full HD the day of admission. - Nephrology consult (4) DM (diabetes mellitus): A1c was 6.6% in 12/2018 though this is not an ideal measure of his DM control given his ESRD. - Continue long-acting and sliding scale insulin - Glycemic pharmacist consult (5) Severe protein-calorie malnutrition: Multifactorial with DM, gastroparesis, poor PO intake all playing a role. - Monitor (6) Depression: Plays a large role in his admissions and how his nausea is doing. All symptoms seem to wax/wane simultaneously. - Continue home meds (7) DVT prophylaxis: SCDs - Low DVT risk per admission calculator History of Present Illness Primary Care Provider: Cory Celestin MD 48 yo M w/ hx of DM1 complicated by gastroparesis, depression, and ESRD who presents with emesis and hypertension. He is vomiting at the time of interview and can only answer a few questions. He reports the emesis began at approximately 10 AM this morning. He had finished his session of hemodialysis, and reports that nothing was different to this morning compared to priors. He denies any changes in his diet. He denies any one being sick around him. He denies any blood in his emesis. He does not know the number of times he has vomited. He denies any chest pain, shortness of breath, abdominal pain, pain in the arms legs hands feet. In the ED, he was noted to be hypertensive with a blood pressure over 200/120. He has been given morphine, Zofran, Ativan, and Compazine. Allergies Allergy/AdvReac Type Severity Reaction Status Date / Time shellfish derived Allergy Severe anaphylaxis Verified 03/21/19 17:45 codeine Allergy Intermediate Hives Verified 03/21/19 17:45 promethazine Allergy Intermediate itchy/hives Verified 03/21/19 17:45 Home Medications Home Medications Medication Instructions Recorded Confirmed Type Chris Caps 1 cap PO QAM 12/19/18 03/21/19 History calcium acetate 667 mg PO TIDM MDD 7 CAPSULES/DAY 12/19/18 03/21/19 History atorvastatin 10 mg tablet 10 mg PO QAM tab 01/06/19 03/21/19 History ondansetron HCl 4 mg tablet 4 mg PO QID PRN 01/12/19 03/21/19 History Basaglar LivanPen U-100 Insulin 18 units SQ DAILY@0930 01/31/19 03/21/19 History aprepitant 80 mg PO UD PRN 01/31/19 03/21/19 History bupropion HCl 100 mg PO QAM 01/31/19 03/21/19 History insulin lispro [Admelog SoloStar See Rx Instructions SUBCUT DAILY 01/31/19 03/21/19 History U-100 Insulin] PRN triamcinolone acetonide 1 applic EXT TID #30 g 02/19/19 03/21/19 Rx acetaminophen 325 mg tablet 650 mg PO .COMPLEX PRN tab 03/10/19 03/21/19 History carvedilol 3.125 mg tablet 3.125 mg PO BID #60 tab 03/10/19 03/21/19 Rx famotidine 20 mg tablet 20 mg PO QAM tab 03/10/19 03/21/19 History metoclopramide 5 mg tablet 5 mg PO Q6H tab 03/10/19 03/21/19 History pen needle, diabetic 32 gauge x #200 ea 03/10/19 03/10/19 Rx 5/32" amlodipine 10 mg PO QAM 03/21/19 03/21/19 History cholecalciferol (vitamin D3) 2,000 unit PO QAM 03/21/19 03/21/19 History lorazepam 0.5 mg SUBLINGUAL Q6H PRN 03/21/19 03/21/19 History sertraline 100 mg PO QAM 03/21/19 03/21/19 History Past Med/Surg History Medical History DM (diabetes mellitus) CAD (coronary artery disease) mild, non-obstructive CAD per 10/2018 cardiac cath ESRD (end stage renal disease) Hemodialysis M,W,F (Follows with Dr. Taylor Higgins; [facility]). Kidney stones Peripheral neuropathy Retinopathy due to secondary diabetes Surgical History H/O shoulder surgery RIGHT History of appendectomy History of cardiac cath 10/2018= no stents, no obstructive disease (at [facility]) History of hip surgery LEFT HIP ARTHROSCOPY History of lithotripsy Permanent central venous catheter in place Permacath Family History Grandfather Myocardial infarction Grandfather (Maternal) Family history of diabetes mellitus Uncle Myocardial infarction Social History Preferred Language: Greenlandic Communication Ability: Effective Visual Impairment: No Limitations Hearing Ability: Normal Superior Court Judge Required: No Beliefs That Will Affect Care: None marital status: Current Living Situation: Parent current occupational status: unemployed Feels Safe at Home: Yes Smoking Status: Never smoker Tobacco Type: smokeless tobacco ; Second Hand Exposure: No ; Hx Alcohol Use: No Hx Substance Use: No Childhood Exposure to Second-Hand Smoke: Yes Dental Care, Regularly: No Physical Activity Frequency: 1-2 Times per Week Seatbelt Use: always Sunscreen Use: No Review of Systems Review of Systems: All systems reviewed & are unremarkable except as noted in HPI & below Physical Exam Constitutional: + acute distress and + ill appearing Eyes: EOM intact bilaterally; no conjunctival abnormality ENMT: external ear and nose normal, oropharynx normal Neck: trachea midline, no thyromegaly normal visual inspection Respiratory: normal respiratory effort, lungs clear to auscultation no respiratory distress Cardiovascular: RRR, no murmur, no edema Gastrointestinal (Abdomen): Inspection/Auscultation: abdomen normal to inspe ction; abdomen not distended Musculoskeletal: no cyanosis or clubbing, extremities motor strength 5/5 Skin: no rashes, warm and dry Neurologic: moves all extremities and awake Psychiatric: Orientation: alert, oriented to person and cooperative Results & Data Vital Signs (Past 12 Hours) Vital Signs Temp Pulse Pulse Resp BP BP Pulse Ox 03/21/19 17:15 82 18 196/118 H 97 03/21/19 16:55 83 12 216/126 H 95 03/21/19 16:00 36.5 C 94 H 20 208/115 H 100 PG Care Time/CCT Total # of Minutes Spent Total Time Spent with Patient: Total time spent is greater than 50% in coordination of care (as documented) at patient's floor/unit and/or counseling patient: (1) Vomiting Nausea presence: with nausea Vomiting Intractability: non-intractable Vomiting type: unspecified Qualified Code(s): R11.2 - Nausea with vomiting, unspecified
[2019-03-21] MEDS ORDERED: INFLUENZA VIRUS QUAD VACCINE 0.5 ML SYR IM ONE (21:15)
[2019-03-21] MEDS ORDERED: INFLUENZA ADMINISTRATION CHARGE ONE (21:15)
[2019-03-21] MEDS ORDERED: ACETAMINOPHEN 325 MG TAB PO PRN (21:18)
[2019-03-21] MEDS ORDERED: GLUCOSE 10 TABS/TUBE PO PRN (21:18)
[2019-03-21] MEDS ORDERED: INSULIN ASPART 100 UNITS/ML 3 ML PEN SC SCH (21:18)
[2019-03-21] MEDS ORDERED: SODIUM CHLORIDE 0.9% 1000ML 1,000 ML IV SCH (21:18)
[2019-03-21] MEDS ORDERED: LORazepam 0.5 MG TAB SL PRN (21:18)
[2019-03-21] MEDS ORDERED: DEXTROSE 50% 50 ML SYRINGE IV PRN (21:18)
[2019-03-21] MEDS ORDERED: METOCLOPRAMIDE HCL INJ 5 MG/ML 2 ML VIAL IV PRN (21:18)
[2019-03-21] MEDS ORDERED: HydrALAZINE HCL 20 MG/ML VIAL IV PRN (21:18)
[2019-03-21] MEDS ORDERED: GLUCOSE 40% GEL 15 GM TUBE PO PRN (21:18)
[2019-03-21] MEDS ORDERED: ONDANSETRON INJ 2 MG/ML 2 ML VIAL IV PRN (21:18)
[2019-03-21] MEDS ORDERED: CARBOHYDRATES FOR HYPOGLYCEMIA PO PRN (21:18)
[2019-03-21] MEDS ORDERED: GLUCAGON FOR INJ 1 MG VIAL SQ PRN (21:18)
[2019-03-21] MEDS ORDERED: ondansetron HCL 8 MG in DEXTROSE 5% 50 ML IV PRN (21:38)
[2019-03-21] MEDS ORDERED: PHARMACY GLYCEMIC MGMT CONSULT PRN (21:39)
[2019-03-21] MEDS ORDERED: PATIENT'S HEIGHT AND/OR WEIGHT NEEDED SCH (21:45)
[2019-03-21] MEDS: carvediloL 3.125 MG TAB PO SCH (21:56)
[2019-03-22] MEDS: INSULIN HUMAN REGULAR SC SCH ×5 (00:37→12:03)
[2019-03-22 06:31] LABS: Hematocrit (blood only) 35.6 % (42-52); Hemoglobin 11.4 g/dL (14.0-18.0); Mean Corpuscular Hemoglobin 33.8 pg (25-34); Mean Corpuscular Volume 105.6 fL (80-100); Mean Platelet Volume 8.9 fL (7.4-10.4); Platelet Count 324 K/uL (130-400); RDW Coefficient of Variation 17.9 % (11.5-14.5); RDW Standard Deviation 66.6 fL (36.4-46.3); Red Blood Count 3.37 M/uL (4.7-6.1); White Blood Count 8.98 K/uL (4.8-10.8)
[2019-03-22 07:06] LABS: BUN Creatinine Ratio 9.6 (10-20); Calcium 8.3 mg/dl (8.5-10.1); Creatinine Clr Calc Pharmacy 21.5 ml/min; Est GFR (African American) 23.1; Est GFR (Non-African American) 19.9; Magnesium 2.2 mg/dl (1.8-2.4); Phosphorus 4.9 mg/dl (2.5-4.9); Potassium 4.2 mmol/L (3.5-5.1)
[2019-03-22] MEDS: carvediloL 3.125 MG TAB PO SCH (08:11)
[2019-03-22] MEDS ORDERED: BuPROPion SR 100 MG TABCR PO SCH (09:00)
[2019-03-22] MEDS ORDERED: AMLODIPINE BESYLATE 5 MG TAB PO SCH (09:00)
[2019-03-22] MEDS ORDERED: ATORVASTATIN 10 MG TAB PO SCH (09:00)
[2019-03-22] MEDS ORDERED: NEPHROCAPS PO SCH (09:00)
[2019-03-22] MEDS ORDERED: SERTRALINE HCL 100 MG TABLET PO SCH (09:00)
[2019-03-22] MEDS ORDERED: INSULIN GLARGINE SOLOSTAR 100 UNITS/ML 3 ML PEN SQ SCH (09:30)
--- NOTE | 2019-03-22 10:01 | Nephrology Consultation ---
Date of Consultation March 22, 2019 Assessment & Plan (1) ESRD (end stage renal disease): Patient with ESRD on dialysis Thursday. Was dialyzed yesterday outpatient. Electrolytes are stable with no signs of volume overload. We will dialyze him tomorrow for 3-1/2 hours, blood flow 350, dialysate flow 600 and no UF. (2) Uncontrolled hypertension: Patient admitted with elevated blood pressure likely due to vomiting his oral medications. Vomiting appears to be improving. Blood pressure is also downtrending. There is room to increase dose of Coreg if his systolic remains above 150. (3) Vomiting: Due to gastroparesis. This is a recurrent problem. Continue supportive management with antiemetics. I wonder if patient can benefit from more PEG tube for long-term management of his nutrition. Consider discussing with gastroenterology. History of Present Illness Reason for Consultation: ESRD Requesting Physician: Sergo Rey MD Attending Physician: Sergo Rey MD History of Present Illness This is a 48-year-old male with type 1 diabetes for many years, hypertension, depression, diabetic gastroparesis diabetic nephropathy with ESRD on dialysis Thursday using a tunneled right IJ catheter was admitted on 03/21/2019 with vomiting. This is a recurrent problem for him due to the gastroparesis. Patient reportedly completed his dialysis session yesterday. He presented to the ER due to intractable vomiting. In the ED he was found to be hypertensive with systolic in the 200s. Patient has left forearm AV fistula which has failed to mature and plan for intervention on 26 March. Patient is getting IV fluids. He does not eat much due to depression. His vomiting is better this morning and blood pressures improved to 150s systolic. He denies any diarrhea. I am seeing him for dialysis support and management of hypertension. Allergies Allergy/AdvReac Type Severity Reaction Status Date / Time shellfish derived Allergy Severe anaphylaxis Verified 03/21/19 17:45 codeine Allergy Intermediate Hives Verified 03/21/19 17:45 promethazine Allergy Intermediate itchy/hives Verified 03/21/19 17:45 Home Medications Home Medications Medication Instructions Recorded Confirmed Type [place] Caps 1 cap PO QAM 12/19/18 03/21/19 History calcium acetate 667 mg PO TIDM MDD 7 CAPSULES/DAY 12/19/18 03/21/19 History atorvastatin 10 mg tablet 10 mg PO QAM tab 01/06/19 03/21/19 History ondansetron HCl 4 mg tablet 4 mg PO QID PRN 01/12/19 03/21/19 History Basaglfrancy Mayers U-100 Insulin 18 units SQ DAILY@0930 01/31/19 03/21/19 History aprepitant 80 mg PO UD PRN 01/31/19 03/21/19 History bupropion HCl 100 mg PO QAM 01/31/19 03/21/19 History insulin lispro [Admelog SoloStar See Rx Instructions SUBCUT DAILY 01/31/19 03/21/19 History U-100 Insulin] PRN triamcinolone acetonide 1 applic EXT TID #30 g 02/19/19 03/21/19 Rx acetaminophen 325 mg tablet 650 mg PO .COMPLEX PRN tab 03/10/19 03/21/19 History carvedilol 3.125 mg tablet 3.125 mg PO BID #60 tab 03/10/19 03/21/19 Rx famotidine 20 mg tablet 20 mg PO QAM tab 03/10/19 03/21/19 History metoclopramide 5 mg tablet 5 mg PO Q6H tab 03/10/19 03/21/19 History pen needle, diabetic 32 gauge x #200 ea 03/10/19 03/10/19 Rx " amlodipine 10 mg PO QAM 03/21/19 03/21/19 History cholecalciferol (vitamin D3) 2,000 unit PO QAM 03/21/19 03/21/19 History lorazepam 0.5 mg SUBLINGUAL Q6H PRN 03/21/19 03/21/19 History sertraline 100 mg PO QAM 03/21/19 03/21/19 History Patient History Medical History DM (diabetes mellitus) CAD (coronary artery disease) mild, non-obstructive CAD per 10/2018 cardiac cath ESRD (end stage renal disease) Hemodialysis M,W,F (Follows with Dr. Taylor Higgins; [facility]). Kidney stones Peripheral neuropathy Retinopathy due to secondary diabetes Surgical History H/O shoulder surgery RIGHT History of appendectomy History of cardiac cath 10/2018= no stents, no obstructive disease (at [facility]) History of hip surgery LEFT HIP ARTHROSCOPY History of lithotripsy Permanent central venous catheter in place Permacath Family History Grandfather Myocardial infarction Grandfather (Maternal) Family history of diabetes mellitus Uncle Myocardial infarction Social History Preferred Language: Turkmen Communication Ability: Effective Visual Impairment: No Limitations Hearing Ability: Normal Evaporator Supervisor Required: No Beliefs That Will Affect Care: None marital status: Current Living Situation: Parent current occupational status: unemployed Feels Safe at Home: Yes Smoking Status: Never smoker Tobacco Type: smokeless tobacco ; Second Hand Exposure: No ; Hx Alcohol Use: No Hx Substance Use: No Childhood Exposure to Second-Hand Smoke: Yes Dental Care, Regularly: No Physical Activity Frequency: 1-2 Times per Week Seatbelt Use: always Sunscreen Use: No Review of Systems Review of Systems: All systems reviewed & are unremarkable except as noted in HPI & below Physical Exam Physical Exam: General exam: Cachectic, appears comfortable, no acute distress HEENT: Pupils are equal and reactive to light Neck: No JVD, neck is supple trachea is midline Respiratory system: Clear breath sounds bilaterally. Gastrointestinal: Abdomen is soft, non distended, non tender, bowel sounds are present CVS: Regular rate and rhythm. No murmurs, rubs or gallops Musculoskeletal: No joint or muscle tenderness Extremities: Non tender, no edema, peripheral pulses are present Neuro: Oriented, no tremors, no focal neurological deficits Skin: No rashes Access: Right tunneled IJ catheter Results & Data Vital Signs (Past 12 Hours) Vital Signs Temp Pulse Pulse Resp BP Pulse Ox 03/22/19 08:34 85 03/22/19 07:55 37.1 C 93 H 18 156/85 H 96 03/22/19 04:34 37.2 C 91 H 20 127/71 97 03/22/19 04:00 36.8 C 89 18 144/71 H 96 03/22/19 00:06 36.8 C 90 18 112/65 95 03/21/19 23:27 88 Laboratory Results Laboratory Results - last 24 hr 03/21/19 03/21/19 03/21/19 16:36 16:38 16:38 WBC 10.92 H RBC 4.08 L Hgb 14.1 Hct 41.3 L MCV 101.2 H MCH 34.6 H MCHC 34.1 RDW Std Deviation 62.4 H RDW Coeff of Kami 16.9 H Plt Count 376 MPV 8.8 Immature Gran % (Auto) 0.8 Neut % (Auto) 76.2 Lymph % (Auto) 10.9 [place] % (Auto) 10.3 Eos % (Auto) 1.3 Baso % (Auto) 0.5 Immature Gran # (Auto) 0.09 H Neut # (Auto) 8.32 H Lymph # (Auto) 1.19 L [place] # (Auto) 1.12 H Eos # (Auto) 0.14 Baso # (Auto) 0.06 Sodium 131 L Potassium 4.2 Chloride 97 L Carbon Dioxide 27 Anion Gap 7.0 BUN 24 H Creatinine 2.59 H Est Cr Clr Drug Dosing Not Reportable Est GFR ( Amer) 32.5 Est GFR (Non-Af Amer) 28.0 BUN/Creatinine Ratio 9.1 L Glucose 72 POC Glucose 77 Calcium 9.4 Phosphorus Magnesium 2.2 Total Bilirubin 0.4 AST 22 ALT 30 Alkaline Phosphatase 207 H Troponin I < 0.015 Total Protein 8.4 H Albumin 4.0 Globulin 4.4 H Albumin/Globulin Ratio 0.9 TSH 2.870 03/21/19 03/22/19 03/22/19 20:45 00:11 05:47 WBC RBC Hgb Hct MCV MCH MCHC RDW Std Deviation RDW Coeff of Kami Plt Count MPV Immature Gran % (Auto) Neut % (Auto) Lymph % (Auto) [place] % (Auto) Eos % (Auto) Baso % (Auto) Immature Gran # (Auto) Neut # (Auto) Lymph # (Auto) [place] # (Auto) Eos # (Auto) Baso # (Auto) Sodium Potassium Chloride Carbon Dioxide Anion Gap BUN Creatinine Est Cr Clr Drug Dosing Est GFR ( Amer) Est GFR (Non-Af Amer) BUN/Creatinine Ratio Glucose POC Glucose 127 H 149 H 74 Calcium Phosphorus Magnesium Total Bilirubin AST ALT Alkaline Phosphatase Troponin I Total Protein Albumin Globulin Albumin/Globulin Ratio TSH 03/22/19 03/22/19 03/22/19 06:03 06:03 07:41 WBC 8.98 RBC 3.37 L Hgb 11.4 L Hct 35.6 L MCV 105.6 H MCH 33.8 MCHC 32.0 RDW Std Deviation 66.6 H RDW Coeff of Kami 17.9 H Plt Count 324 MPV 8.9 Immature Gran % (Auto) Neut % (Auto) Lymph % (Auto) [place] % (Auto) Eos % (Auto) Baso % (Auto) Immature Gran # (Auto) Neut # (Auto) Lymph # (Auto) [place] # (Auto) Eos # (Auto) Baso # (Auto) Sodium 137 Potassium 4.2 Chloride 101 Carbon Dioxide 27 Anion Gap 9.0 BUN 33 H Creatinine 3.44 H D Est Cr Clr Drug Dosing 21.5 Est GFR ( Amer) 23.1 Est GFR (Non-Af Amer) 19.9 BUN/Creatinine Ratio 9.6 L Glucose 70 POC Glucose 80 Calcium 8.3 L Phosphorus 4.9 Magnesium 2.2 Total Bilirubin AST ALT Alkaline Phosphatase Troponin I Total Protein Albumin Globulin Albumin/Globulin Ratio TSH (1) Vomiting Nausea presence: with nausea Vomiting Intractability: non-intractable Vomiting type: unspecified Qualified Code(s): R11.2 - Nausea with vomiting, unspecified
--- NOTE | 2019-03-22 11:08 | Pharmacy Report ---
Glycemic Control Consultation - Date of Service March 22, 2019 - Scope Scope: Glycemic Pharmacist consulted by Dr Rey on 03/21/19 for glycemic control and to write orders per [facility] inpatient glycemic control protocol - Objective Weight: 57.9 kg Accuchecks BSG (last 24hrs): 03/21/19 03/21/19 03/21/19 16:36 16:38 20:45 Glucose 72 POC Glucose 77 127 H 03/22/19 03/22/19 03/22/19 00:11 05:47 06:03 Glucose 70 POC Glucose 149 H 74 03/22/19 07:41 Glucose POC Glucose 80 Laboratory Data (last 24hrs): 03/21/19 03/22/19 16:38 06:03 Potassium 4.2 4.2 Carbon Dioxide 27 27 Anion Gap 7.0 9.0 Creatinine 2.59 H 3.44 H D Est Cr Clr Drug Dosing Not Reportable 21.5 - Recent Pertinent Medications Outpatient Anti-diabetic Regimen: * Basaglar 18 units SC daily * Admelog CR 1:10 plus sliding scale * A1c = 6.6% (12/20/18) * However, this result is likely somewhat unreliable in ESRD patients d/t interactions between the A1c analyzing technique and high levels of urea in ESRD, reduced RBC life span, iron deficiency anemia, and EPO administration. HbA1c > 7.5% in ESRD patient may overestimate the extent of hyperglycemia in ESRD patients. - Assessment & Plan Assessment & Plan: ASSESSMENT: * GERBER is a 48 year-old male well known to the pharmacy glycemic service, admitted to [facility] on 03/21 with recurrent bouts of uncontrolled emesis and uncontrolled hypertension. Patient has ESRD and currently receives hemodialysis on Thursday, Thursday, Thursday schedule (last session on 03/21 prior to admission). Patient has significant gastroparesis and in the past has resulted in labile appetite and blood sugars with SC basal/bolus. Last admission on 02/10/19, patient was well-controlled with scheduled regular insulin q6h using a scale. Will continue with this regimen and adjust as needed. * Patient did receive home Lantus 18 units on day of admission * BSGs ranging 70-149 mg/dL since admission * Nephrology planning to dialyze again tomorrow (03/23) PLAN FOR INPATIENT GLYCEMIC CONTROL: * Will hold outpatient regimen and initiate SC regular insulin * Basal insulin + prandial insulin * Regular insulin per scale * - 1 unit: BSG less than 110 mg/dL * - 2 units: BSG 110 mg/dL or above * Correctional insulin * Regular insulin per scale Q6hrs * Goal Range: Low 100 mg/dL - High 150 mg/dL * Correction Factor: 30 mg/dL/unit * Please note that the plan above was derived based on current level of insulin resistance and hospital stress. These recommendations are appropriate for inpatient admission only. Plan of care upon discharge will need to be reassessed to avoid potential outpatient hypo/hyperglycemia. Thank you.
[2019-03-22 11:29] LABS: Hepatitis B Surface Ab Quant 137.76 mIU/mL (>or=10mIU/mL Immune); Hepatitis B Surface Antibody Immune
[2019-03-22 11:39] LABS: Hepatitis B Surface Antigen Neg (Neg)
--- NOTE | 2019-03-22 17:52 | Discharge Summary ---
Date of Service March 22, 2019 Admission HPI Per Admitting Provider 48 yo M w/ hx of DM1 complicated by gastroparesis, depression, and ESRD who presents with emesis and hypertension. He is vomiting at the time of interview and can only answer a few questions. He reports the emesis began at approximately 10 AM this morning. He had finished his session of hemodialysis, and reports that nothing was different to this morning compared to priors. He denies any changes in his diet. He denies any one being sick around him. He denies any blood in his emesis. He does not know the number of times he has vomited. He denies any chest pain, shortness of breath, abdominal pain, pain in the arms legs hands feet. In the ED, he was noted to be hypertensive with a blood pressure over 200/120. He has been given morphine, Zofran, Ativan, and Compazine. Principal Diagnosis Nausea and emesis Discharge Exam Constitutional + frail appearing; + not well nourished, no acute distress and not ill appearing Eyes EOM intact bilaterally; no conjunctival abnormality ENMT external ear and nose normal, oropharynx normal Neck trachea midline, no thyromegaly normal visual inspection Respiratory normal respiratory effort, lungs clear to auscultation no respiratory distress Cardiovascular RRR, no murmur, no edema Gastrointestinal (Abdomen) Inspection/Auscultation: abdomen normal to inspection; abdomen not distended Percussion/Palpation: abdomen soft; abdomen nontender, no guarding and abdomen not rigid Musculoskeletal no cyanosis or clubbing, extremities motor strength 5/5 Skin no rashes, warm and dry Neurologic moves all extremities and awake Psychiatric Orientation: alert, oriented to person and cooperative Discharge Data Allergies Allergy/AdvReac Type Severity Reaction Status Date / Time shellfish derived Allergy Severe anaphylaxis Verified 03/21/19 17:45 codeine Allergy Intermediate Hives Verified 03/21/19 17:45 promethazine Allergy Intermediate itchy/hives Verified 03/21/19 17:45 Consultations 03/21/19 17:40 ED Decision to Admit Stat 03/21/19 21:18 Consult Nephrology Routine Ordered Studies 03/21/19 16:12 CT head/brain wo con Stat Hospital Course (1) Vomiting: Has had recurrent bouts of uncontrolled emesis. - Zofran & Reglan IV were ordered, but he literally never used a single dose of either one outside of the ED. - The morning of discharge, he tolerated diet and requested to go home. I am not sure what precipitated this event or why it resolved within 12 hours without any medication. He will follow up with his outpatient physicians. - Nephrology posited that a PEG tube may be beneficial for him; however, he improved so rapidly that we did not address this while inpatient. (2) Uncontrolled hypertension: BP up to 215/120 in the ED. Usually runs low-normal on his BP meds. - Continue home meds as able with emesis - By the morning, his BP was back to normal when he was able to take his PO medications. Outpatient BP check in a week with his PCP. (3) ESRD (end stage renal disease): Follows with Dr. Guadalupe. Reports he got his full HD the day of admission. - Nephrology consulted, but he left prior to needing any HD. (4) DM (diabetes mellitus): A1c was 6.6% in 12/2018 though this is not an ideal measure of his DM control given his ESRD. - Continue long-acting and sliding scale insulin - Glycemic pharmacist consulted - Discharged on stable insulin. (5) Severe protein-calorie malnutrition: Multifactorial with DM, gastroparesis, poor PO intake all playing a role. - Monitor (6) Depression: Plays a large role in his admissions and how his nausea is doing. - Continue home meds - Affect was flat this admission, but no better/worse than his usual admissions. (7) DVT prophylaxis: SCDs - Low DVT risk per admission calculator Total Time Total Time Spent Total Time Spent (In Minutes): 35 Discharge Plan Discharge Items Patient Disposition: Home - Self-Care Reason For Visit: EMESIS Discharge Diagnosis: Nausea and vomiting; high blood pressure Activity: Resume your previous activity Non-emergency contact: Primary Care Provider Call non-emergency contact if: your symptoms worsen Follow-up/Referrals: Cory Celestin MD [Primary Care Provider] - 03/31/19 1:00 pm (Please, follow up with Dr. Celestin on March 31 at 1:00 pm. *If you need to change this appointment, call the office at [phone].) Diet: Carb Count or DM1 Addtl Attending Provider Instructions: Mr. De Los Santos, You were admitted to the hospital for nausea and emesis. I unfortunately am not sure why this occurred as it resolved by the next morning without any additional anti-nausea medications during your time in the hospital. Please call your PCP and arrange to follow up and also follow up with your normal dialysis treatments tomorrow. Please use your home Reglan and nausea medications if you have any further nausea. Pending Studies at Discharge: No Stand-Alone Forms: My [facility] Medications and DC Order Prescriptions: Continued pen needle, diabetic [BD Ultra-Fine Annalise Pen Needle] 32 gauge x 5/32" needle .ROUTE .MEDSUPPLY Qty: 200 RF: 5 famotidine 20 mg tablet 20 mg PO QAM RF: 0 acetaminophen 325 mg tablet 650 mg PO .COMPLEX PRN (Reason: fever or pain) RF: 0 carvedilol 3.125 mg tablet 3.125 mg PO BID Qty: 60 RF: 2 ondansetron HCl [Zofran] 4 mg tablet 4 mg PO QID PRN (Reason: Nausea And Vomiting) RF: 0 triamcinolone acetonide 0.1 % Cream 1 applic EXT TID Qty: 30 RF: 0 atorvastatin 10 mg tablet 10 mg PO QAM RF: 0 metoclopramide HCl 5 mg tablet 5 mg PO Q6H RF: 0 Chris Caps 1 mg capsule 1 cap PO QAM RF: 0 calcium acetate 667 mg capsule 667 mg PO TIDM MDD 7 CAPSULES/DAY RF: 0 aprepitant 80 mg capsule 80 mg PO UD PRN (Reason: Nausea) RF: 0 bupropion HCl 100 mg tablet sustained-release 12 hr 100 mg PO QAM RF: 0 insulin lispro [Admelog SoloStar U-100 Insulin] 100 unit/mL insulin pen See Rx Instructions subcut DAILY PRN (Reason: sliding scale) RF: 0 Basaglar KwikPen U-100 Insulin 100 unit/mL (3 mL) insulin pen 18 units SQ DAILY@0930 RF: 0 lorazepam 0.5 mg Tablet 0.5 mg SUBLINGUAL Q6H PRN (Reason: Anxiety) RF: 0 amlodipine 10 mg tablet 10 mg PO QAM RF: 0 sertraline 100 mg tablet 100 mg PO QAM RF: 0 cholecalciferol (vitamin D3) 2,000 unit capsule 2,000 unit PO QAM RF: 0 Discharge Orders: Discharge Order (Routine); Ordered 10/15/19 Ordered By: Sergo Rey Admission Data Admit Date/Time: 03/21/19 18:27 Attending Provider: Sergo Rey Admit Provider: Sergo Rey Primary Care Provider: Cory Celestin Other Providers: Ravi Winter ; Lor Guadalupe Other Interventions: Discharge Summary Assessment (RN) Last Done: 03/22/19 15:14 DC Date/Time DO NOT enter until pt leaves facility: 03/22/19 16:00
== END 2019-03-22 16:00 | disposition home or self-care (01) | DRG 73 ==
LOC: ED 15:57 → 2N 18:27

== ENCOUNTER 2019-03-23 11:47 | Inpatient (IN) ==
[2019-03-23] MEDS ORDERED: ONDANSETRON INJ 2 MG/ML 2 ML VIAL IV STA (12:38)
[2019-03-23 12:48] LABS: Basophils # (auto) 0.03 K/uL (0-0.2); Basophils % (auto) 0.3 %; Eosinophils # (auto) 0.09 K/uL (0-0.5); Eosinophils % (auto) 0.8 %; Hematocrit (blood only) 39.3 % (42-52); Immature Granulocytes # (auto) 0.06 K/uL (0.00-0.02); Immature Granulocytes % (auto) 0.5 %; Lymphocytes # (auto) 1.07 K/uL (1.2-3.4); Lymphocytes % (auto) 9.6 %; Mean Corpuscular Hemoglobin 33.9 pg (25-34); Mean Corpuscular Hgb Conc 33.1 g/dL (32-36); Mean Corpuscular Volume 102.6 fL (80-100); Mean Platelet Volume 8.8 fL (7.4-10.4); Monocytes % (auto) 9.9 %; Neutrophils # (auto) 8.76 K/uL (1.4-6.5); Neutrophils % (auto) 78.9 %; Platelet Count 314 K/uL (130-400); RDW Coefficient of Variation 17.3 % (11.5-14.5); RDW Standard Deviation 64.4 fL (36.4-46.3); Red Blood Count 3.83 M/uL (4.7-6.1); White Blood Count 11.11 K/uL (4.8-10.8)
[2019-03-23] MEDS ORDERED: SODIUM CHLORIDE 0.9% 1000ML 500 ML IV ONE ×2 (12:49→16:40)
[2019-03-23] MEDS ORDERED: LABETALOL HCL IV 5 MG/ML 20ML IV STA ×2 (12:49→14:54)
[2019-03-23 13:01] LABS: iSTAT Creatinine 2.2 mg/dl (0.6-1.3); iSTAT Hemoglobin 13.9 g/dl (14.0-18.0); iSTAT Ionized Calcium 1.01 mmol/l (1.12-1.32); iSTAT Potassium 4.3 mEq/L (3.3-5.0)
[2019-03-23] MEDS ORDERED: METOCLOPRAMIDE HCL INJ 5 MG/ML 2 ML VIAL IV STA (13:04)
[2019-03-23 13:06] LABS: Albumin Level 3.6 gm/dl (3.4-5.0); BUN Creatinine Ratio 7.9 (10-20); Blood Urea Nitrogen 18 mg/dl (7-18); Calcium 9.5 mg/dl (8.5-10.1); Carbon Dioxide 22 mmol/L (21-32); Chloride 95 mmol/L (98-107); Est GFR (African American) 39.2; Est GFR (Non-African American) 33.8; Glucose 196 mg/dl (70-99); Lipase 141 U/L (73-393); Sodium 129 mmol/L (136-145)
[2019-03-23 13:10] LABS: Alanine Aminotransferase 24 U/L (12-78); Albumin Globulin Ratio 0.9 (0.9-2); Alkaline Phosphatase 190 U/L (45-117); Aspartate Aminotransferase 20 U/L (15-37); Bilirubin,Total 0.4 mg/dl (0.2-1); Globulin 4.2 gm/dl (2.5-4.0); Total Protein 7.8 gm/dl (6.4-8.2); Troponin I < 0.015 ng/ml (0-0.045)
--- NOTE | 2019-03-23 13:29 | XRay Report ---
XR abdomen 2V w PA chest CLINICAL HISTORY: 48 years-old Male presenting with vomiting. TECHNIQUE: AP view of the chest and supine and left lateral decubitus views of the abdomen were obtai jennifer. COMPARISON: Chest x-ray from 02/16/[address] of the abdomen and pelvis from 01/31/2019. FINDINGS: Tunneled right internal jugular dialysis catheter terminates at the superior cavoatrial junction as o n prior exam. Cardiac silhouette top normal in size. Pulmonary vasculature normal. No focal opacity. No large effusion or pneumothorax. Prominence of small bowel folds suggested in the left mid abdomen. No bowel obstruction. No gross pne umoperitoneum. Calcification projects over the interpolar region of the right kidney as on recent CT. Few pelvic phl eboliths. Atherosclerotic calcification. Partially visualized intramedullary nail fixation in the right femur. IMPRESSION: 1. No acute cardiopulmonary disease. 2. Findings suggest small bowel wall thickening, which could indicate enteritis. 3. No bowel obstruction. Electronically signed by: Jose Zaldivar M.D. 03/23/2019 1:28 PM
[2019-03-23] MEDS ORDERED: LORazepam 1 MG/2 ML VIAL IV STA (13:41)
[2019-03-23] MEDS ORDERED: LABETALOL HCL IV 5 MG/ML 20ML IV PRN (14:55)
[2019-03-23] MEDS ORDERED: METOCLOPRAMIDE HCL INJ 5 MG/ML 2 ML VIAL IV ONE (14:55)
[2019-03-23] MEDS ORDERED: DIAZEPAM 5 MG/ML INJ 10ML VIAL IV STA (15:45)
--- NOTE | 2019-03-23 18:24 | Emergency Department Note ---
Entered by Rae Kowalski acting as a scribe for History of Present Illness General Chief complaint: Hypertension Stated complaint: HIGH BP, NAUSEA Time Seen by Provider: 03/23/19 12:34 Source: patient History of Present Illness Provider complaint: Hypertension Onset (ago): day(s) 1 Radiation: non-radiation Maximum Pain Intensity: 1 Relieved By: + none Exacerbated By: + none Associated symptoms: + cough (With clear phlegm ), + fever/chills and + nausea/vomiting The patient is a 48 year old male w/ PMHx of ESRD, HTN, DM, depression who presents to the ED w/ CC of hypertension beginning yesterday. The patient states the symptoms do not radiate anywhere else on his body and are not exacerbated nor relieved by anything specific. The patient reports experiencing nausea/vomiting, fever/chills, and a cough that is bringing up clear phlegm. The patient notes that he received his full dialysis treatment prior to arrival and took his blood pressure medication after his appointment. The patient was discharged from our ED yesterday for uncontrolled vomiting. Home Medications Home Medications Medication Instructions Recorded Confirmed Type [place] Caps 1 cap PO QAM 12/19/18 03/23/19 History calcium acetate 667 mg PO TIDM MDD 7 CAPSULES/DAY 12/19/18 03/23/19 History atorvastatin 10 mg tablet 10 mg PO QAM tab 01/06/19 03/23/19 History ondansetron HCl 4 mg tablet 4 mg PO QID PRN 01/12/19 03/23/19 History aprepitant 80 mg PO UD PRN 01/31/19 03/23/19 History bupropion HCl 100 mg PO QAM 01/31/19 03/23/19 History insulin lispro [Admelog SoloStar See Rx Instructions SUBCUT DAILY 01/31/19 03/23/19 History U-100 Insulin] PRN acetaminophen 325 mg tablet 650 mg PO UD PRN tab 03/10/19 03/23/19 History carvedilol 3.125 mg tablet 3.125 mg PO BID #60 tab 03/10/19 03/23/19 Rx famotidine 20 mg tablet 20 mg PO QAM tab 03/10/19 03/23/19 History metoclopramide 5 mg tablet 5 mg PO Q6H tab 03/10/19 03/23/19 History pen needle, diabetic 32 gauge x #200 ea 03/10/19 03/23/19 Rx 32" amlodipine 10 mg PO QAM 03/21/19 03/23/19 History cholecalciferol (vitamin D3) 2,000 unit PO QAM 03/21/19 03/23/19 History lorazepam 0.5 mg SUBLINGUAL Q6H PRN 03/21/19 03/23/19 History sertraline 100 mg PO QAM 03/21/19 03/23/19 History blood sugar diagnostic strips #600 ea 03/23/19 03/23/19 Rx insulin glargine (U-100) 100 18 units SQ DAILY@0930 #30 ml 03/23/19 03/23/19 Rx unit/mL (3 mL) subcutaneous pen triamcinolone acetonide 1 applic TOPICAL TID 03/23/19 03/23/19 History Allergies Allergy/AdvReac Type Severity Reaction Status Date / Time shellfish derived Allergy Severe anaphylaxis Verified 03/23/19 15:00 codeine Allergy Intermediate Hives Verified 03/23/19 15:00 promethazine Allergy Intermediate itchy/hives Verified 03/23/19 15:00 Past Med/Surg History Medical History DM (diabetes mellitus) CAD (coronary artery disease) mild, non-obstructive CAD per 10/2018 cardiac cath ESRD (end stage renal disease) Hemodialysis M,W,F (Follows with Dr. Taylor Higgins; [facility]). Kidney stones Peripheral neuropathy Retinopathy due to secondary diabetes Surgical History H/O shoulder surgery RIGHT History of appendectomy History of cardiac cath 10/2018= no stents, no obstructive disease (at [facility]) History of hip surgery LEFT HIP ARTHROSCOPY History of lithotripsy Permanent central venous catheter in place Permacath Family History Grandfather Myocardial infarction Grandfather (Maternal) Family history of diabetes mellitus Uncle Myocardial infarction Social History Preferred Language: Qatari Communication Ability: Effective Visual Impairment: No Limitations Hearing Ability: Normal Site Controller Required: No Beliefs That Will Affect Care: None marital status: Current Living Situation: Parent current occupational status: unemployed Other Information That Helps Us Care for You: No Feels Safe at Home: Yes Safety Concerns: Feels Safe At This Time Smoking Status: Never smoker Tobacco Type: smokeless tobacco ; Do You Dip or Chew Tobacco: No ; Second Hand Exposure: No ; Tobacco Cessation Education Reques sami by Patient: No Hx Alcohol Use: No Hx Substance Use: No Childhood Exposure to Second-Hand Smoke: Yes Dental Care, Regularly: No Physical Activity Frequency: 1-2 Times per Week Seatbelt Use: always Sunscreen Use: No Review of Systems See HPI for pertinent positives & negatives. and A total of 10 systems reviewed and were otherwise negative Physical Exam Vital Signs Vital Signs - 24 hr 03/23/19 11:59 03/23/19 12:18 03/23/19 12:19 Temperature 36.5 C Temperature Source Oral Sepsis Recent Fever Within 48 Hours No Sepsis Action Taken by Nursing No Action Required Pulse Rate 97 H 97 H Pulse Rate [Left Finger] Respiratory Rate 20 17 Respiratory Effort / Characteristics Non-Labored Spontaneous Respiratory Depth Normal Respiratory Pattern Blood Pressure 170/91 H 182/102 H Blood Pressure [Right Arm] Blood Pressure Mean 117 128 Blood Pressure Mean [Right Arm] Blood Pressure Position Sitting Pulse Oximetry 100 100 100 Oxygen Delivery Method Room Air Room Air Oxygen Flow Rate 03/23/19 12:20 03/23/19 12:30 03/23/19 12:36 Temperature Temperature Source Sepsis Recent Fever Within 48 Hours Sepsis Action Taken by Nursing Pulse Rate 96 H 94 H 93 H Pulse Rate [Left Finger] Respiratory Rate 15 12 12 Respiratory Effort / Characteristics Respiratory Depth Respiratory Pattern Blood Pressure 189/108 H Blood Pressure [Right Arm] Blood Pressure Mean 135 Blood Pressure Mean [Right Arm] Blood Pressure Position Pulse Oximetry 100 100 Oxygen Delivery Method Oxygen Flow Rate 03/23/19 13:00 03/23/19 13:25 03/23/19 14:09 Temperature Temperature Source Sepsis Recent Fever Within 48 Hours Sepsis Action Taken by Nursing Pulse Rate 93 H Pulse Rate [Left Finger] 93 H 82 Respiratory Rate 15 24 14 Respiratory Effort / Characteristics Respiratory Depth Respiratory Pattern Blood Pressure 178/95 H Blood Pressure [Right Arm] 178/95 H 191/107 H Blood Pressure Mean 122 Blood Pressure Mean [Right Arm] 122 135 Blood Pressure Position Pulse Oximetry 100 100 96 Oxygen Delivery Method Room Air Room Air Oxygen Flow Rate 03/23/19 15:13 03/23/19 15:25 03/23/19 15:51 Temperature Temperature Source Sepsis Recent Fever Within 48 Hours Sepsis Action Taken by Nursing Pulse Rate Pulse Rate [Left Finger] 92 H 90 88 Respiratory Rate 20 20 16 Respiratory Effort / Characteristics Respiratory Depth Respiratory Pattern Blood Pressure Blood Pressure [Right Arm] 198/116 H 195/106 H 190/110 H Blood Pressure Mean Blood Pressure Mean [Right Arm] 143 135 136 Blood Pressure Position Pulse Oximetry 100 100 100 Oxygen Delivery Method Room Air Room Air Room Air Oxygen Flow Rate 03/23/19 16:08 03/23/19 16:34 03/23/19 17:25 Temperature Temperature Source Sepsis Recent Fever Within 48 Hours Sepsis Action Taken by Nursing Pulse Rate Pulse Rate [Left Finger] 87 87 87 Respiratory Rate 14 16 16 Respiratory Effort / Characteristics Respiratory Depth Respiratory Pattern Blood Pressure Blood Pressure [Right Arm] 176/101 H 192/111 H 200/113 H Blood Pressure Mean Blood Pressure Mean [Right Arm] 126 138 142 Blood Pressure Position Pulse Oximetry 100 99 99 Oxygen Delivery Method Room Air Room Air Room Air Oxygen Flow Rate 03/23/19 17:33 03/23/19 17:36 03/23/19 17:37 Temperature Temperature Source Sepsis Recent Fever Within 48 Hours Sepsis Action Taken by Nursing Pulse Rate Pulse Rate [Left Finger] Respiratory Rate Respiratory Effort / Characteristics Non-Labored Spontaneous Respiratory Depth Normal Respiratory Pattern Regular Blood Pressure Blood Pressure [Right Arm] Blood Pressure Mean Blood Pressure Mean [Right Arm] Blood Pressure Position Pulse Oximetry 57 L 100 Oxygen Delivery Method Oxymask Room Air Oxymask Oxygen Flow Rate 10 10 03/23/19 17:46 Temperature 36.7 C Temperature Source Oral Sepsis Recent Fever Within 48 Hours Sepsis Action Taken by Nursing Pulse Rate Pulse Rate [Left Finger] 91 H Respiratory Rate 16 Respiratory Effort / Characteristics Respiratory Depth Respiratory Pattern Blood Pressure Blood Pressure [Right Arm] 191/111 H Blood Pressure Mean Blood Pressure Mean [Right Arm] 137 Blood Pressure Position Pulse Oximetry 100 Oxygen Delivery Method Room Air Oxygen Flow Rate GENERAL: Uncomfortable-appearing, well nourished, non-toxic. EYE EXAM: Normal conjunctiva. PERRL, no anisocoria and EOM's grossly intact w/o pain. OROPHARYNX: Moist mucous membranes. Grossly normal dentition. NECK: Supple, no nuchal rigidity, no adenopathy, non-tender. No signs of meningismus. CHEST: Subclavian permacath in the right chest. CDI. LUNGS: Clear to auscultation. Normal chest wall mechanics. Clear breath sounds. HEART: NSR, no MRG. ABDOMEN: Abdomen soft, non-tender, normo-active bowel sounds, no masses, no re bound or guarding. Mild epigastric discomfort not peritonitic. BACK: No CVA TTP. SKIN: No rashes and no bruising. UPPER EXTREMITIES: Upper extremities are grossly normal. LOWER EXTREMITIES: No pitting edema. No calf pain. NEURO EXAM: A&O x3, cranial nerves II-XII grossly intact, normal speech, moves all 4 extremities on command w/o issue. Course 1246: Past medical records reviewed. The patient was evaluated in room B11B. A complete history and physical exam was performed. 1252: Point of care potassium is 4.3. 1415: I reevaluated the patient and he has stopped vomiting. 1642: I spoke with Dr. Winter - Hospitalist about the patient's case and he will accept the patient for further evaluation. Administered Medications Labetalol HCl (Normodyne) 10 mg IV ONE PRN PRN Reason: Hypertension Stop: 04/22/19 14:54 Last Admin: 03/23/19 15:24 Dose: 10 mg Documented by: [id number] Cosigned by: [id number] Discontinued Medications Diazepam (Valium) 5 mg IV NOW STA Stop: 03/23/19 15:46 Last Admin: 03/23/19 15:51 Dose: 5 mg Documented by: [id number] Sodium Chloride (Nss 1000ml) 500 mls @ 999 mls/hr IV .Q31M ONE Stop: 03/23/19 13:19 Last Infusion: 03/23/19 13:46 Dose: 0 mls/hr Documented by: [id number] Admin: 03/23/19 13:22 Dose: 999 mls/hr Documented by: [id number] Lorazepam (Ativan) 1 mg in 2 mls @ 2 mls/min IV NOW STA Stop: 03/23/19 13:42 Last Admin: 03/23/19 13:45 Dose: 2 mls/min Documented by: [id number] Sodium Chloride (Nss 1000ml) 500 mls @ 999 mls/hr IV .Q31M ONE Stop: 03/23/19 17:10 Last Infusion: 03/23/19 17:24 Dose: 0 mls/hr Documented by: [id number] Admin: 03/23/19 16:47 Dose: 999 mls/hr Documented by: [id number] Labetalol HCl (Normodyne) 10 mg IV NOW STA Stop: 03/23/19 12:50 Last Admin: 03/23/19 13:22 Dose: 10 mg Documented by: [id number] Cosigned by: [id number] Labetalol HCl (Normodyne) 10 mg IV NOW STA Stop: 03/23/19 14:55 Last Admin: 03/23/19 15:12 Dose: 10 mg Documented by: [id number] Cosigned by: [id number] Metoclopramide HCl (Reglan) 5 mg IV NOW STA Stop: 03/23/19 13:05 Last Admin: 03/23/19 13:22 Dose: 5 mg Documented by: [id number] Metoclopramide HCl (Reglan) 5 mg IV ONE ONE Stop: 03/23/19 14:56 Last Admin: 03/23/19 15:15 Dose: 5 mg Documented by: [id number] Ondansetron HCl (Zofran) 4 mg IV NOW STA Stop: 03/23/19 12:39 Last Admin: 03/23/19 12:47 Dose: 4 mg Documented by: [id number] Medical Decision Making Differential Diagnosis The patient is a 48 year old male w/ PMHx of ESRD, HTN, DM, depression who presents to the ED w/ CC of hypertension beginning yesterday. Differential diagnosis: Etiologies such as gastroenteritis, food borne illness, infections, appendicitis, diverticulitis, inflammatory bowel disease, obstruction, GI bleed, biliary pathology, cardiac process, intracranial process, gastroparesis, as well as others were entertained. Medical Records Attestation: I reviewed the patient's medical records. Home Medications Current Medication List: was personally reviewed by me Laboratory Data Attestation: I reviewed the patient's lab results. Result diagrams: 03/23/19 12:35 03/23/19 12:35 Lab Results 03/23/19 03/23/19 03/23/19 Range/Units 12:35 12:35 12:47 WBC 11.11 H (4.8-10.8) K/uL RBC 3.83 L (4.7-6.1) M/uL Hgb 13.0 L (14.0-18.0) g/dL POC Hgb 13.9 L (14.0-18.0) g/dl Hct 39.3 L (42-52) % POC Hct 41 L (42-52) % MCV 102.6 H (80-100) fL MCH 33.9 (25-34) pg MCHC 33.1 (32-36) g/dL RDW Std Deviation 64.4 H (36.4-46.3) fL RDW Coeff of Kami 17.3 H (11.5-14.5) % Plt Count 314 (130-400) K/uL MPV 8.8 (7.4-10.4) fL Immature Gran % (Auto) 0.5 % Neut % (Auto) 78.9 % Lymph % (Auto) 9.6 % [place] % (Auto) 9.9 % Eos % (Auto) 0.8 % Baso % (Auto) 0.3 % Immature Gran # (Auto) 0.06 H (0.00-0.02) K/uL Neut # (Auto) 8.76 H (1.4-6.5) K/uL Lymph # (Auto) 1.07 L (1.2-3.4) K/uL [place] # (Auto) 1.10 H (0.11-0.59) K/uL Eos # (Auto) 0.09 (0-0.5) K/uL Baso # (Auto) 0.03 (0-0.2) K/uL POC Sodium 130 L (135-144) mEq/L Sodium 129 L D (136-145) mmol/L POC Potassium 4.3 (3.3-5.0) mEq/L Potassium 4.0 (3.5-5.1) mmol/L POC Chloride 95 L (101-112) mEq/L Chloride 95 L (98-107) mmol/L Carbon Dioxide 22 (21-32) mmol/L POC Total CO2 25 (24-31) mEq/l Anion Gap 12.0 H (3-11) POC Anion Gap 15.0 L (16-25) mmol/L POC BUN 20 H (7-18) mg/dl BUN 18 (7-18) mg/dl Creatinine 2.22 H D (0.6-1.4) mg/dl POC Creatinine 2.2 H (0.6-1.3) mg/dl Est Cr Clr Drug Dosing Not Reportable Est GFR ( Amer) 39.2 Est GFR (Non-Af Amer) 33.8 BUN/Creatinine Ratio 7.9 L (10-20) Glucose 196 H (70-99) mg/dl POC Glucose (70-99) POC Glucose (other) 199 H (70-99) mg/dl Calcium 9.5 (8.5-10.1) mg/dl POC Ioniz Calcium [place] 1.01 L (1.12-1.32) mmol/l Total Bilirubin 0.4 (0.2-1) mg/dl AST 20 (15-37) U/L ALT 24 (12-78) U/L Alkaline Phosphatase 190 H (45-117) U/L Troponin I < 0.015 (0-0.045) ng/ml Total Protein 7.8 (6.4-8.2) gm/dl Albumin 3.6 (3.4-5.0) gm/dl Globulin 4.2 H (2.5-4.0) gm/dl Albumin/Globulin Ratio 0.9 (0.9-2) Lipase 141 (73-393) U/L Specimen Hemolysis 03/23/19 Range/Units 17:50 WBC (4.8-10.8) K/uL RBC (4.7-6.1) M/uL Hgb (14.0-18.0) g/dL POC Hgb (14.0-18.0) g/dl Hct (42-52) % POC Hct (42-52) % MCV (80-100) fL MCH (25-34) pg MCHC (32-36) g/dL RDW Std Deviation (36.4-46.3) fL RDW Coeff of Kami (11.5-14.5) % Plt Count (130-400) K/uL MPV (7.4-10.4) fL Immature Gran % (Auto) % Neut % (Auto) % Lymph % (Auto) % [place] % (Auto) % Eos % (Auto) % Baso % (Auto) % Immature Gran # (Auto) (0.00-0.02) K/uL Neut # (Auto) (1.4-6.5) K/uL Lymph # (Auto) (1.2-3.4) K/uL [place] # (Auto) (0.11-0.59) K/uL Eos # (Auto) (0-0.5) K/uL Baso # (Auto) (0-0.2) K/uL POC Sodium (135-144) mEq/L Sodium (136-145) mmol/L POC Potassium (3.3-5.0) mEq/L Potassium (3.5-5.1) mmol/L POC Chloride (101-112) mEq/L Chloride (98-107) mmol/L Carbon Dioxide (21-32) mmol/L POC Total CO2 (24-31) mEq/l Anion Gap (3-11) POC Anion Gap (16-25) mmol/L POC BUN (7-18) mg/dl BUN (7-18) mg/dl Creatinine (0.6-1.4) mg/dl POC Creatinine (0.6-1.3) mg/dl Est Cr Clr Drug Dosing Est GFR ( Amer) Est GFR (Non-Af Amer) BUN/Creatinine Ratio (10-20) Glucose (70-99) mg/dl POC Glucose 147 H (70-99) POC Glucose (other) (70-99) mg/dl Calcium (8.5-10.1) mg/dl POC Ioniz Calcium [place] (1.12-1.32) mmol/l Total Bilirubin (0.2-1) mg/dl AST (15-37) U/L ALT (12-78) U/L Alkaline Phosphatase (45-117) U/L Troponin I (0-0.045) ng/ml Total Protein (6.4-8.2) gm/dl Albumin (3.4-5.0) gm/dl Globulin (2.5-4.0) gm/dl Albumin/Globulin Ratio (0.9-2) Lipase (73-393) U/L Specimen Hemolysis Imaging Data Radiologist's Impression: Radiology results as stated below per my review and the radiologist's interpretation: XR abdomen 2V w PA chest CLINICAL HISTORY: 48 years-old Male presenting with vomiting. TECHNIQUE: AP view of the chest and supine and left lateral decubitus views of the abdomen were obtained. COMPARISON: Chest x-ray from 02/16/[address] of the abdomen and pelvis from 01/31/2019. FINDINGS: Tunneled right internal jugular dialysis catheter terminates at the superior cavoatrial junction as on prior exam. Cardiac silhouette top normal in size. Pulmonary vasculature normal. No focal opacity. No large effusion or pneumothorax. Prominence of small bowel folds suggested in the left mid abdomen. No bowel obstruction. No gross pneumoperitoneum. Calcification projects over the interpolar region of the right kidney as on recent CT. Few pelvic phleboliths. Atherosclerotic calcification. Partially visualized intramedullary nail fixation in the right femur. IMPRESSION: 1. No acute cardiopulmonary disease. 2. Findings suggest small bowel wall thickening, which could indicate enteritis. 3. No bowel obstruction. Electronically signed by: Jose Zaldivar M.D. 03/23/2019 1:28 PM ECG Data Attestation: I personally reviewed and interpreted this ECG as follows: Indication: other (Hypertension) Rate (beats per minute): 96 Rhythm: normal sinus Findings: + other (Prolonged QTC, Normal axis) and + nonspecific-ST abn (Lateral leads) Comparison ECG Date: from (03/22/2019) Change: no significant change Blood Pressure Blood Pressure Findings: Elevated blood pressure Blood Pressure Disposition: further management by hospitalist DAVID Newberry Patient was seen and evaluated the bedside. The patient did relate that he was having some persistent vomiting that began shortly after his dialysis today. Patient does have a known history of ESRD. The patient does have an occluded left upper extremity AV fistula but does have a right subclavian permacath. The patient has complained of some mild clear cough. Patient is a non-smoker. Clear chest sounds. The patient did have blood work completed initial [id number] BMP shows potassium that is normal. Creatinine 2. The patient was given IV fluids. The patient does have prolonged QT. There was concern that the patient does suffer from labile blood pressures and associated vomiting. Patient denies any headache. Patient has a nonfocal neurologic exam at this time. Patient is not confused. Patient was ordered a one-time dose of labetalol initially had been given Zofran empirically. We will avoid any further given the prolonged QT. Patient was also given 500 cc of IV fluids. The patient does have dialysis on Thursday. Patient's blood work does show hyponatremia. This is acutely acute compared to yesterday. This may be related to the patient's vomiting as well as his recent hemodialysis. The patient did have improvement but then subsequently it feels there is good vomit again. The patient's blood pressure was treated again with 2 more doses of labetalol. He was given additional Reglan. To try the patient on multiple rounds of antiemetics as well as anxiety medications as there could be an anxiety component. The patient is acutely hyponatremic. The patient's potassium does not need acute treatment. Given the inability the patient to tolerate by mouth and persistent hypertension I did sp eak the on-call hospitalist agreed to further evaluate treat the patient. Patient was admitted to the medicine service. Impression & Plan Hypertension, Intractable nausea and vomiting, Acute hyponatremia, ESRD on dialysis Critical Care Time Critical Care Time: Yes Total Critical Care Time: 40 I have personally spent greater than 40 minutes of critical care time in direct management of this patient. This includes bedside care, interpretation of diagnostic studies, and testing, discussion with consultants, patient, and family members, and other require inpatient management activities. This 40 minutes is in excess of all separately billable procedures. Discharge Plan Visit Data Chief Complaint: Hypertension Stated Complaint: HIGH BP, NAUSEA ED Provider: Demarcus Salmeron Discharge Problem: Hypertension, Intractable nausea and vomiting, Acute hyponatremia, ESRD on dialysis Forms Stand Alone Forms: My [employer] Prescriptions Prescriptions: No Action pen needle, diabetic [BD Ultra-Fine Annalise Pen Needle] 32 gauge x 5/32" needle .ROUTE .MEDSUPPLY Qty: 200 RF: 5 Contour Next Test Strips strip .ROUTE .MEDSUPPLY Qty: 600 RF: 3 Basaglar DeangeloikPen U-100 Insulin 100 unit/mL (3 mL) insulin pen 18 units SQ DAILY@0930 Qty: 30 RF: 1 famotidine 20 mg tablet 20 mg PO QAM RF: 0 acetaminophen 325 mg tablet 650 mg PO UD PRN (Reason: fever or pain) RF: 0 carvedilol 3.125 mg tablet 3.125 mg PO BID Qty: 60 RF: 2 ondansetron HCl [Zofran] 4 mg tablet 4 mg PO QID PRN (Reason: Nausea And Vomiting) RF: 0 atorvastatin 10 mg tablet 10 mg PO QAM RF: 0 metoclopramide HCl 5 mg tablet 5 mg PO Q6H RF: 0 [place] Caps 1 mg capsule 1 cap PO QAM RF: 0 calcium acetate 667 mg capsule 667 mg PO TIDM MDD 7 CAPSULES/DAY RF: 0 aprepitant 80 mg capsule 80 mg PO UD PRN (Reason: Nausea) RF: 0 bupropion HCl 100 mg tablet sustained-release 12 hr 100 mg PO QAM RF: 0 insulin lispro [Admelog SoloStar U-100 Insulin] 100 unit/mL insulin pen See Rx Instructions subcut DAILY PRN (Reason: sliding scale) RF: 0 lorazepam 0.5 mg Tablet 0.5 mg SUBLINGUAL Q6H PRN (Reason: Anxiety) RF: 0 amlodipine 10 mg tablet 10 mg PO QAM RF: 0 sertraline 100 mg tablet 100 mg PO QAM RF: 0 cholecalciferol (vitamin D3) 2,000 unit capsule 2,000 unit PO QAM RF: 0 triamcinolone acetonide 0.1 % cream 1 applic topical TID RF: 0 Discharge Problem: Hypertension Qualifiers: Hypertension type: unspecified Qualified Code(s): I10 - Essential (primary) hypertension The scribe's documentation has been prepared under my direction and personally reviewed by me in its entirety. I confirm that the note above accurately reflects all work, treatment, procedures, and medical decision making performed by me.
[2019-03-23] MEDS: HydrALAZINE HCL 20 MG/ML VIAL IV PRN ×2 (18:25→20:33)
[2019-03-23] MEDS ORDERED: DEXTROSE 50% 50 ML SYRINGE IV PRN (19:56)
[2019-03-23] MEDS ORDERED: GLUCAGON FOR INJ 1 MG VIAL SQ PRN (19:56)
[2019-03-23] MEDS ORDERED: LORazepam 0.5 MG TAB SL PRN (19:56)
[2019-03-23] MEDS ORDERED: CARBOHYDRATES FOR HYPOGLYCEMIA PO PRN (19:56)
[2019-03-23] MEDS ORDERED: GLUCOSE 40% GEL 15 GM TUBE PO PRN (19:56)
[2019-03-23] MEDS ORDERED: ONDANSETRON HCL 8 MG in DEXTROSE 5% 50 ML IV PRN (19:56)
[2019-03-23] MEDS ORDERED: METOCLOPRAMIDE HCL INJ 5 MG/ML 2 ML VIAL IV PRN (19:56)
[2019-03-23] MEDS ORDERED: GLUCOSE 10 TABS/TUBE PO PRN (19:56)
[2019-03-23] MEDS ORDERED: PHARMACY GLYCEMIC MGMT CONSULT PRN (20:12)
[2019-03-23] MEDS ORDERED: HydrALAZINE HCL 20 MG/ML VIAL IV PRN (20:36)
[2019-03-23] MEDS ORDERED: HydrALAZINE HCL 20 MG/ML VIAL IV STA (20:36)
[2019-03-23] MEDS: carvediloL 3.125 MG TAB PO SCH (20:37)
--- NOTE | 2019-03-23 20:51 | History & Physical Report ---
Date of Service March 23, 2019 Assessment & Plan (1) Intractable nausea and vomiting: Occurring now twice in the setting of high blood pressure. - Zofran & Reglan PRN - Monitor QTc - Will not skip meds before HD which is what they have been doing (following physician instructions). Will keep him here long enough to run at least 1 HD session to see if HD has any relation to his nausea & vomiting. (2) Hypertension: In the ED, BP was as high as 200/110 despite multiple pushes of IV labetalol. - Continue home HTN meds - Hydralazine PRN (3) ESRD (end stage renal disease): Due to DM. - Consult nephrology; no urgent dialysis need - Continue NephroCaps - Renally-dose medications (4) DM (diabetes mellitus): DM1. Per father, he has been fairly well controlled in the last few weeks, and he had good blood sugar control while out of the hospital. Did get the morning Lantus dose. - Continue home Lantus - Sliding scale insulin - Glycemic pharmacist to assist (5) Severe protein-calorie malnutrition: Multifactorial from DM, ESRD, nausea and vomiting. - Monitor diet while inpatient (6) DVT prophylaxis: SCDs - Low DVT risk per admission calculator History of Present Illness Primary Care Provider: Cory Celestin MD 48yo M w/ hx of DM1 complicated by gastroparesis, ESRD, and HTN who presents with nausea and vomiting. He was in the hospital recently. During that admission, his BP started high and trended down. He experienced nausea on admission as well which resolved without any IV medications. He was discharged, and did well overnight, but notes that he had a return of his nausea and vomiting today. He reports that he attended his normal HD session. Once he was on the way home, he began to have more nausea and threw up once with subsequent dry heaving. At home, his home nurse checked his blood pressure and it was upwards of 190/110, and he was told to go to the Emergency Department. Of note, his father reports that he has been told to hold his blood pressure medications the morning of his HD sessions. He did so this morning, but took them at 10am when his BP was found to be very high. Allergies Allergy/AdvReac Type Severity Reaction Status Date / Time shellfish derived Allergy Severe anaphylaxis Verified 03/23/19 15:00 codeine Allergy Intermediate Hives Verified 03/23/19 15:00 promethazine Allergy Intermediate itchy/hives Verified 03/23/19 15:00 Home Medications Home Medications Medication Instructions Recorded Confirmed Type Chris Caps 1 cap PO QAM 12/19/18 03/23/19 History calcium acetate 667 mg PO TIDM MDD 7 CAPSULES/DAY 12/19/18 03/23/19 History atorvastatin 10 mg tablet 10 mg PO QAM tab 01/06/19 03/23/19 History ondansetron HCl 4 mg tablet 4 mg PO QID PRN 01/12/19 03/23/19 History aprepitant 80 mg PO UD PRN 01/31/19 03/23/19 History bupropion HCl 100 mg PO QAM 01/31/19 03/23/19 History insulin lispro [Admelog SoloStar See Rx Instructions SUBCUT DAILY 01/31/19 03/23/19 History U-100 Insulin] PRN acetaminophen 325 mg tablet 650 mg PO UD PRN tab 03/10/19 03/23/19 History carvedilol 3.125 mg tablet 3.125 mg PO BID #60 tab 03/10/19 03/23/19 Rx famotidine 20 mg tablet 20 mg PO QAM tab 03/10/19 03/23/19 History metoclopramide 5 mg tablet 5 mg PO Q6H tab 03/10/19 03/23/19 History pen needle, diabetic 32 gauge x #200 ea 03/10/19 03/23/19 Rx 5/32" amlodipine 10 mg PO QAM 03/21/19 03/23/19 History cholecalciferol (vitamin D3) 2,000 unit PO QAM 03/21/19 03/23/19 History lorazepam 0.5 mg SUBLINGUAL Q6H PRN 03/21/19 03/23/19 History sertraline 100 mg PO QAM 03/21/19 03/23/19 History blood sugar diagnostic strips #600 ea 03/23/19 03/23/19 Rx insulin glargine (U-100) 100 18 units SQ DAILY@0930 #30 ml 03/23/19 03/23/19 Rx unit/mL (3 mL) subcutaneous pen triamcinolone acetonide 1 applic TOPICAL TID 03/23/19 03/23/19 History Past Med/Surg History Medical History DM (diabetes mellitus) CAD (coronary artery disease) mild, non-obstructive CAD per 10/2018 cardiac cath ESRD (end stage renal disease) Hemodialysis M,W,F (Follows with Dr. Taylor Higgins; [facility]/[place]). Kidney stones Peripheral neuropathy Retinopathy due to secondary diabetes Surgical History H/O shoulder surgery RIGHT History of appendectomy History of cardiac cath 10/2018= no stents, no obstructive disease (at [facility]) History of hip surgery LEFT HIP ARTHROSCOPY History of lithotripsy Permanent central venous catheter in place Permacath Family History Grandfather Myocardial infarction Grandfather (Maternal) Family history of diabetes mellitus Uncle Myocardial infarction Social History Preferred Language: Stateless Communication Ability: Effective Visual Impairment: No Limitations Hearing Ability: Normal Motorcycle Deliverer Required: No Beliefs That Will Affect Care: None marital status: Current Living Situation: Parent current occupational status: unemployed Other Information That Helps Us Care for You: No Feels Safe at Home: Yes Safety Concerns: Feels Safe At This Time Smoking Status: Never smoker Tobacco Type: smokeless tobacco ; Do You Dip or Chew Tobacco: No ; Second Hand Exposure: No ; Tobacco Cessation Education Requested by Patient: No Hx Alcohol Use: No Hx Substance Use: No Childhood Exposure to Second-Hand Smoke: Yes Dental Care, Regularly: No Physical Activity Frequency: 1-2 Times per Week Seatbelt Use: always Sunscreen Use: No Physical Exam Constitutional: + acute distress, + cachectic and + frail appearing Eyes: EOM intact bilaterally; no conjunctival abnormality ENMT: external ear and nose normal, oropharynx normal Neck: trachea midline, no thyromegaly normal visual inspection Respiratory: normal respiratory effort, lungs clear to auscultation no respiratory distress Cardiovascular: RRR, no murmur, no edema Gastrointestinal (Abdomen): Inspection/Auscultation: abdomen normal to inspection; abdomen not distended Musculoskeletal: no cyanosis or clubbing, extremities motor strength 5/5 Skin: no rashes, warm and dry Neurologic: moves all extremities and awake Psychiatric: Orientation: alert, oriented to person and cooperative Results & Data Vital Signs (Past 12 Hours) Vital Signs Temp Pulse Pulse Resp BP BP Pulse Ox 03/23/19 20:07 37.3 C 93 H 22 202/110 H 98 03/23/19 19:15 89 18 198/106 H 98 03/23/19 18:27 90 16 194/126 H 100 03/23/19 17:46 36.7 C 91 H 16 191/111 H 100 03/23/19 17:37 100 03/23/19 17:36 57 L 03/23/19 17:25 87 16 200/113 H 99 03/23/19 16:34 87 16 192/111 H 99 03/23/19 16:08 87 14 176/101 H 100 03/23/19 15:51 88 16 190/110 H 100 03/23/19 15:25 90 20 195/106 H 100 03/23/19 15:13 92 H 20 198/116 H 100 03/23/19 14:09 82 14 191/107 H 96 03/23/19 13:25 93 H 24 178/95 H 100 03/23/19 13:00 93 H 15 178/95 H 100 03/23/19 12:36 93 H 12 189/108 H 100 03/23/19 12:30 94 H 12 03/23/19 12:20 96 H 15 100 03/23/19 12:19 100 03/23/19 12:18 97 H 17 182/102 H 100 03/23/19 11:59 36.5 C 97 H 20 170/91 H 100 PG Care Time/CCT Total # of Minutes Spent Total Time Spent with Patient: Total time spent is greater than 50% in coordination of care (as documented) at patient's floor/unit and/or counseling patient: (1) Hypertension Hypertension type: unspecified Qualified Code(s): I10 - Essential (primary) hypertension
[2019-03-23] MEDS ORDERED: PNEUMOCOCCAL ADMINISTRATION CHARGE ONE (21:00)
[2019-03-23] MEDS ORDERED: INSULIN ASPART 100 UNITS/ML 3 ML PEN SC SCH (21:00)
[2019-03-23] MEDS ORDERED: PNEUMOCOCCAL POLYSACCHARIDES 25 MCG/0.5 ML VIAL/SYR IM ONE (21:00)
[2019-03-24] MEDS: INSULIN HUMAN REGULAR SC SCH ×9 (00:06→23:48)
[2019-03-24] MEDS: PROCHLORPERAZINE 5 MG in SYRINGE 4 ML IV PRN ×2 (01:07→08:10)
[2019-03-24 05:56] LABS: Hematocrit (blood only) 36.3 % (42-52); Hemoglobin 11.7 g/dL (14.0-18.0); Mean Corpuscular Hemoglobin 33.9 pg (25-34); Mean Corpuscular Hgb Conc 32.2 g/dL (32-36); Mean Corpuscular Volume 105.2 fL (80-100); Mean Platelet Volume 8.8 fL (7.4-10.4); Platelet Count 310 K/uL (130-400); RDW Coefficient of Variation 17.7 % (11.5-14.5); Red Blood Count 3.45 M/uL (4.7-6.1); White Blood Count 10.69 K/uL (4.8-10.8)
[2019-03-24 06:31] LABS: BUN Creatinine Ratio 9.3 (10-20); Calcium 8.1 mg/dl (8.5-10.1); Creatinine Clr Calc Pharmacy 22.6 ml/min; Est GFR (African American) 24.6; Est GFR (Non-African American) 21.2; Magnesium 2.1 mg/dl (1.8-2.4); Phosphorus 4.7 mg/dl (2.5-4.9); Potassium 4.4 mmol/L (3.5-5.1)
[2019-03-24] MEDS: SERTRALINE HCL 100 MG TABLET PO SCH (08:11)
[2019-03-24] MEDS: FAMOTIDINE 20 MG TAB PO SCH (08:11)
[2019-03-24] MEDS: AMLODIPINE BESYLATE 5 MG TAB PO SCH (08:11)
[2019-03-24] MEDS: ATORVASTATIN 10 MG TAB PO SCH (08:11)
[2019-03-24] MEDS: NEPHROCAPS PO SCH (08:11)
[2019-03-24] MEDS: BuPROPion SR 100 MG TABCR PO SCH (08:11)
[2019-03-24] MEDS: carvediloL 3.125 MG TAB PO SCH (08:11)
--- NOTE | 2019-03-24 08:15 | Pharmacy Report ---
Glycemic Control Consultation - Date of Service March 24, 2019 - Scope Scope: Glycemic Pharmacist consulted by Dr Rey on 03/23 for glycemic control and to write orders per [facility] inpatient glycemic control protocol - Objective Weight: 57.7 kg Accuchecks BSG (last 24hrs): 03/23/19 03/23/19 03/23/19 12:35 12:47 17:50 Glucose 196 H POC Glucose 147 H POC Glucose (other) 199 H 03/23/19 03/23/19 03/24/19 19:28 21:06 00:03 Glucose POC Glucose 187 H 233 H 278 H POC Glucose (other) 03/24/19 03/24/19 03/24/19 05:29 05:50 07:23 Glucose 283 H POC Glucose 278 H 272 H POC Glucose (other) Laboratory Data (last 24hrs): 03/23/19 03/24/19 12:35 05:29 Potassium 4.0 4.4 Carbon Dioxide 22 20 L Anion Gap 12.0 H 14.0 H Creatinine 2.22 H D 3.26 H D Est Cr Clr Drug Dosing Not Reportable 22.6 - Recent Pertinent Medications Outpatient Anti-diabetic Regimen: * Basaglar 18 units daily * Humalog using CR 1:10 + SS * A1c unreliable d/t ESRD The patient is currently receiving: * Basal/prandial insulin: Regular insulin 1-2 units q6h * Correctional Insulin: Regular Correction per scale ACHS Goal Range: Low 110 mg/dL - High 150 mg/dL Correction Factor: 30 mg/dL/unit Risk Factors for Insulin Resistance: * Diet: T1DM, intractable N/V - Assessment & Plan Assessment & Plan: ASSESSMENT: * 48 y/o male with T1DM well known to the pharmacy glycemic service, admitted 1 day after previous discharge for intractable nausea/vomiting * Father reported that BSGs have been well controlled in the outpatient setting, he did receive his Lantus dose yesterday AM * During previous admissions, we have switched him to Regular insulin q6h to serve as basal/prandial/correctional due to his sporadic eating habits and severe gastroparesis. This has traditionally worked well so will continue to trial. * BSGs are currently elevated so will increase the "basal" scale to provide an additional 1 unit with each dose when BSG is elevated PLAN FOR INPATIENT GLYCEMIC CONTROL: * Basal/prandial insulin * Novolin R q6h per the following scale: * 1 unit for BSG < 110 * 2 units for BSG 110-150 * 3 units for BSG > 150 * Correctional insulin * Novolin R per scale q6h, to coincide with basal dosing * Goal Range: Low 110 mg/dL - High 150 mg/dL * Correction Factor: 30 mg/dL/unit Discharge Recommendations: * A1c is unreliable d/t ESRD * Per reports of outpatient control, he has been well controlled. Recommend to continue same regimen on discharge. Thank you.
[2019-03-24] MEDS ORDERED: INSULIN GLARGINE SOLOSTAR 100 UNITS/ML 3 ML PEN SQ SCH (09:30)
[2019-03-24] MEDS: carvediloL 6.25 MG TAB PO SCH ×2 (09:43→21:16)
--- NOTE | 2019-03-24 10:46 | Nephrology Consultation ---
Date of Consultation March 24, 2019 Assessment & Plan (1) ESRD on dialysis: Patient on HD MWF. Last HD was Thursday. His electrolytes are stable with no signs of volume overload. No need for HD today. Will plan HD tomorrow for 3.5hrs and target UF 1 litre. (2) Hypertension: BP is above target. Will increase coreg to 6.25mg bid. Hold coreg on morning of HD. Patient advised not to check BP while wretching and vomiting as it will be high (3) Intractable nausea and vomiting: Recurrent problem in setting of gastroparesis. Continue supportive management with zofran as needed (4) Acute hyponatremia: Patient admitted of Na of 129 which would correct to about 131 after correction for glucose. na better this morning. No need to make changes. Will optimize with dialysis tomorrow History of Present Illness Reason for Consultation: ESRD Requesting Physician: Sergo Rey MD Attending Physician: Sergo Rey MD History of Present Illness This is a 48-year-old male with type 1 diabetes for many years, hypertension, depression, diabetic gastroparesis diabetic nephropathy with ESRD on dialysis Thursday using a tunneled right IJ catheter was admitted on 03/23/2019 with vomiting and uncontrolled hypertension. Patient was just discharged the day before readmission. This is a recurrent problem for him due to the gastroparesis. Patient completed his dialysis session yesterday. On the way home he had wretching and vomiting. His BP at home was in the 190's and visiting RN sent patient to ER. In the ED BP was high but has improved now to the 160's. He feels a little better this morning. he has some nausea but no vomiting. he does not eat much. they took off 1.5 litres at HD yesterday. no IDH per patient. Allergies Allergy/AdvReac Type Severity Reaction Status Date / Time shellfish derived Allergy Severe anaphylaxis Verified 03/23/19 15:00 codeine Allergy Intermediate Hives Verified 03/23/19 15:00 promethazine Allergy Intermediate itchy/hives Verified 03/23/19 15:00 Home Medications Home Medications Medication Instructions Recorded Confirmed Type [place] Caps 1 cap PO QAM 12/19/18 03/23/19 History calcium acetate 667 mg PO TIDM MDD 7 CAPSULES/DAY 12/19/18 03/23/19 History atorvastatin 10 mg tablet 10 mg PO QAM tab 01/06/19 03/23/19 History ondansetron HCl 4 mg tablet 4 mg PO QID PRN 01/12/19 03/23/19 History aprepitant 80 mg PO UD PRN 01/31/19 03/23/19 History bupropion HCl 100 mg PO QAM 01/31/19 03/23/19 History insulin lispro [Admelog SoloStar See Rx Instructions SUBCUT DAILY 01/31/19 03/23/19 History U-100 Insulin] PRN acetaminophen 325 mg tablet 650 mg PO UD PRN tab 03/10/19 03/23/19 History carvedilol 3.125 mg tablet 3.125 mg PO BID #60 tab 03/10/19 03/23/19 Rx famotidine 20 mg tablet 20 mg PO QAM tab 03/10/19 03/23/19 History metoclopramide 5 mg tablet 5 mg PO Q6H tab 03/10/19 03/23/19 History pen needle, diabetic 32 gauge x #200 ea 03/10/19 03/23/19 Rx " amlodipine 10 mg PO QAM 03/21/19 03/23/19 History cholecalciferol (vitamin D3) 2,000 unit PO QAM 03/21/19 03/23/19 History lorazepam 0.5 mg SUBLINGUAL Q6H PRN 03/21/19 03/23/19 History sertraline 100 mg PO QAM 03/21/19 03/23/19 History blood sugar diagnostic strips #600 ea 03/23/19 03/23/19 Rx insulin glargine (U-100) 100 18 units SQ DAILY@0930 #30 ml 03/23/19 03/23/19 Rx unit/mL (3 mL) subcutaneous pen triamcinolone acetonide 1 applic TOPICAL TID 03/23/19 03/23/19 History Patient History Medical History DM (diabetes mellitus) CAD (coronary artery disease) mild, non-obstructive CAD per 10/2018 cardiac cath ESRD (end stage renal disease) Hemodialysis M,W,F (Follows with Dr. Taylor Higgins; [facility]/[place]). Kidney stones Peripheral neuropathy Retinopathy due to secondary diabetes Surgical History H/O shoulder surgery RIGHT History of appendectomy History of cardiac cath 10/2018= no stents, no obstructive disease (at [facility]) History of hip surgery LEFT HIP ARTHROSCOPY History of lithotripsy Permanent central venous catheter in place Permacath Family History Grandfather Myocardial infarction Grandfather (Maternal) Family history of diabetes mellitus Uncle Myocardial infarction Social History Preferred Language: Togolese Communication Ability: Effective Visual Impairment: No Limitations Hearing Ability: Normal Farm Agent Required: No Beliefs That Will Affect Care: None marital status: Current Living Situation: Parent current occupational status: unemployed Other Information That Helps Us Care for You: No Feels Safe at Home: Yes Safety Concerns: Feels Safe At This Time Smoking Status: Never smoker Tobacco Type: smokeless tobacco ; Do You Dip or Chew Tobacco: No ; Second Hand Exposure: No ; Tobacco Cessation Education Re quested by Patient: No Hx Alcohol Use: No Hx Substance Use: No Childhood Exposure to Second-Hand Smoke: Yes Dental Care, Regularly: No Physical Activity Frequency: 1-2 Times per Week Seatbelt Use: always Sunscreen Use: No Review of Systems Review of Systems: All systems reviewed & are unremarkable except as noted in HPI & below Physical Exam Physical Exam: General exam: Appears comfortable, no acute distress HEENT: Pupils are equal and reactive to light Neck: No JVD, neck is supple trachea is midline Respiratory system: Clear breath sounds bilaterally. Gastrointestinal: Abdomen is soft, non distended, non tender, bowel sounds are present CVS: Regular rate and rhythm. No murmurs, rubs or gallops Musculoskeletal: No joint or muscle tenderness Extremities: Non tender, no edema, peripheral pulses are present Neuro: Oriented, no tremors, no focal neurological deficits Skin: No rashes Access: CVC Results & Data Vital Signs (Past 12 Hours) Vital Signs Temp Pulse Pulse Resp BP Pulse Ox 03/24/19 07:00 36.5 C 97 H 18 161/80 H 97 03/24/19 04:17 37.0 C 101 H 20 164/85 H 97 03/24/19 04:15 95 H 03/23/19 23:27 36.7 C 97 H 20 155/85 H 97 Laboratory Results Laboratory Results - last 24 hr 03/23/19 03/23/19 03/23/19 12:35 12:35 12:47 WBC 11.11 H RBC 3.83 L Hgb 13.0 L POC Hgb 13.9 L Hct 39.3 L POC Hct 41 L MCV 102.6 H MCH 33.9 MCHC 33.1 RDW Std Deviation 64.4 H RDW Coeff of Kami 17.3 H Plt Count 314 MPV 8.8 Immature Gran % (Auto) 0.5 Neut % (Auto) 78.9 Lymph % (Auto) 9.6 [place] % (Auto) 9.9 Eos % (Auto) 0.8 Baso % (Auto) 0.3 Immature Gran # (Auto) 0.06 H Neut # (Auto) 8.76 H Lymph # (Auto) 1.07 L [place] # (Auto) 1.10 H Eos # (Auto) 0.09 Baso # (Auto) 0.03 POC Sodium 130 L Sodium 129 L D POC Potassium 4.3 Potassium 4.0 POC Chloride 95 L Chloride 95 L Carbon Dioxide 22 POC Total CO2 25 Anion Gap 12.0 H POC Anion Gap 15.0 L POC BUN 20 H BUN 18 Creatinine 2.22 H D POC Creatinine 2.2 H Est Cr Clr Drug Dosing Not Reportable Est GFR ( Amer) 39.2 Est GFR (Non-Af Amer) 33.8 BUN/Creatinine Ratio 7.9 L Glucose 196 H POC Glucose POC Glucose (other) 199 H Calcium 9.5 POC Ioniz Calcium Peterson 1.01 L Phosphorus Magnesium Total Bilirubin 0.4 AST 20 ALT 24 Alkaline Phosphatase 190 H Troponin I < 0.015 Total Protein 7.8 Albumin 3.6 Globulin 4.2 H Albumin/Globulin Ratio 0.9 Lipase 141 Specimen Hemolysis Nasal Screen MRSA (PCR) 03/23/19 03/23/19 03/23/19 17:50 18:42 19:28 WBC RBC Hgb POC Hgb Hct POC Hct MCV MCH MCHC RDW Std Deviation RDW Coeff of Kami Plt Count MPV Immature Gran % (Auto) Neut % (Auto) Lymph % (Auto) [place] % (Auto) Eos % (Auto) Baso % (Auto) Immature Gran # (Auto) Neut # (Auto) Lymph # (Auto) [place] # (Auto) Eos # (Auto) Baso # (Auto) POC Sodium Sodium POC Potassium Potassium POC Chloride Chloride Carbon Dioxide POC Total CO2 Anion Gap POC Anion Gap POC BUN BUN Creatinine POC Creatinine Est Cr Clr Drug Dosing Est GFR ( Amer) Est GFR (Non-Af Amer) BUN/Creatinine Ratio Glucose POC Glucose 147 H 187 H POC Glucose (other) Calcium POC Ioniz Calcium Peterson Phosphorus Magnesium Total Bilirubin AST ALT Alkaline Phosphatase Troponin I < 0.015 Total Protein Albumin Globulin Albumin/Globulin Ratio Lipase Specimen Hemolysis Nasal Screen MRSA (PCR) 03/23/19 03/23/19 03/24/19 21:06 21:15 00:03 WBC RBC Hgb POC Hgb Hct POC Hct MCV MCH MCHC RDW Std Deviation RDW Coeff of Kami Plt Count MPV Immature Gran % (Auto) Neut % (Auto) Lymph % (Auto) [place] % (Auto) Eos % (Auto) Baso % (Auto) Immature Gran # (Auto) Neut # (Auto) Lymph # (Auto) [place] # (Auto) Eos # (Auto) Baso # (Auto) POC Sodium Sodium POC Potassium Potassium POC Chloride Chloride Carbon Dioxide POC Total CO2 Anion Gap POC Anion Gap POC BUN BUN Creatinine POC Creatinine Est Cr Clr Drug Dosing Est GFR ( Amer) Est GFR (Non-Af Amer) BUN/Creatinine Ratio Glucose POC Glucose 233 H 278 H POC Glucose (other) Calcium POC Ioniz Calcium Peterson Phosphorus Magnesium Total Bilirubin AST ALT Alkaline Phosphatase Troponin I Total Protein Albumin Globulin Albumin/Globulin Ratio Lipase Specimen Hemolysis Nasal Screen MRSA (PCR) Negative 03/24/19 03/24/19 03/24/19 05:29 05:29 05:50 WBC 10.69 RBC 3.45 L Hgb 11.7 L POC Hgb Hct 36.3 L POC Hct MCV 105.2 H MCH 33.9 MCHC 32.2 RDW Std Deviation 67.0 H RDW Coeff of Kami 17.7 H Plt Count 310 MPV 8.8 Immature Gran % (Auto) Neut % (Auto) Lymph % (Auto) [place] % (Auto) Eos % (Auto) Baso % (Auto) Immature Gran # (Auto) Neut # (Auto) Lymph # (Auto) [place] # (Auto) Eos # (Auto) Baso # (Auto) POC Sodium Sodium 132 L POC Potassium Potassium 4.4 POC Chloride Chloride 98 Carbon Dioxide 20 L POC Total CO2 Anion Gap 14.0 H POC Anion Gap POC BUN BUN 30 H D Creatinine 3.26 H D POC Creatinine Est Cr Clr Drug Dosing 22.6 Est GFR ( Amer) 24.6 Est GFR (Non-Af Amer) 21.2 BUN/Creatinine Ratio 9.3 L Glucose 283 H POC Glucose 278 H POC Glucose (other) Calcium 8.1 L POC Ioniz Calcium Peterson Phosphorus 4.7 Magnesium 2.1 Total Bilirubin AST ALT Alkaline Phosphatase Troponin I Total Protein Albumin Globulin Albumin/Globulin Ratio Lipase Specimen Hemolysis Nasal Screen MRSA (PCR) 03/24/19 07:23 WBC RBC Hgb POC Hgb Hct POC Hct MCV MCH MCHC RDW Std Deviation RDW Coeff of Kami Plt Count MPV Immature Gran % (Auto) Neut % (Auto) Lymph % (Auto) [place] % (Auto) Eos % (Auto) Baso % (Auto) Immature Gran # (Auto) Neut # (Auto) Lymph # (Auto) [place] # (Auto) Eos # (Auto) Baso # (Auto) POC Sodium Sodium POC Potassium Potassium POC Chloride Chloride Carbon Dioxide POC Total CO2 Anion Gap POC Anion Gap POC BUN BUN Creatinine POC Creatinine Est Cr Clr Drug Dosing Est GFR ( Amer) Est GFR (Non-Af Amer) BUN/Creatinine Ratio Glucose POC Glucose 272 H POC Glucose (other) Calcium POC Ioniz Calcium Peterson Phosphorus Magnesium Total Bilirubin AST ALT Alkaline Phosphatase Troponin I Total Protein Albumin Globulin Albumin/Globulin Ratio Lipase Specimen Hemolysis Nasal Screen MRSA (PCR) (1) Hypertension Hypertension type: unspecified Qualified Code(s): I10 - Essential (primary) hypertension
--- NOTE | 2019-03-24 13:45 | Hospitalist Progress Note ---
Date of Service March 24, 2019 Assessment & Plan (1) Hypertension: In the ED, BP was as high as 200/110 despite multiple pushes of IV labetalol. His father notes that he was told by nephrology to hold his BP meds before his dialysis sessions, so they have been doing that; however, I think this may be contributing to his high BPs after HD and possibly exacerbating his nausea. - Continue home HTN meds - Hydralazine PRN - By 03/24, BP was 160/80. Nephrology increased his Coreg, but still recommended holding it before HD (2) Intractable nausea and vomiting: Occurring now twice in the setting of high blood pressure. - Zofran & Reglan PRN - Monitor QTc - 513 on 03/14 which is better than yesterday and stable from many priors. - Will not skip meds before HD which is what they have been doing (following physician instructions). Will keep him here long enough to run at least 1 HD session to see if HD has any relation to his nausea & vomiting. (3) ESRD (end stage renal disease): Due to DM. - Consult nephrology - Continue NephroCaps - Renally-dose medications - Electrolytes stable today. (4) DM (diabetes mellitus): DM1. Per father, he has been fairly well controlled in the last few weeks, and he had good blood sugar control while out of the hospital. Did get the morning Lantus dose. - Continue home Lantus - Sliding scale insulin - Glycemic pharmacist to assist (5) Severe protein-calorie malnutrition: Multifactorial from DM, ESRD, nausea and vomiting. - Monitor diet while inpatient (6) DVT prophylaxis: SCDs - Low DVT risk per admission calculator Subjective Feeling quite well today overall. Less nausea, no abdominal pain. Blood pressure has been better controlled overall. Reports no fevers/chills, chest pain, shortness of breath, abdominal pain, or vomiting. Physical Exam Constitutional: + cachectic and + frail appearing; no acute distress Eyes: EOM intact bilaterally; no conjunctival abnormality ENMT: external ear and nose normal, oropharynx normal Neck: trachea midline, no thyromegaly normal visual inspection Respiratory: normal respiratory effort, lungs clear to auscultation no respiratory distress Cardiovascular: RRR, no murmur, no edema Gastrointestinal (Abdomen): Inspection/Auscultation: abdomen normal to inspection; abdomen not distended Musculoskeletal: no cyanosis or clubbing, extremities motor strength 5/5 Skin: no rashes, warm and dry Neurologic: moves all extremities and awake Psychiatric: Orientation: alert, oriented to person and cooperative Results & Data Vital Signs (Past 12 Hours) Vital Signs Temp Pulse Pulse Resp BP Pulse Ox 03/24/19 11:13 97 03/24/19 11:00 36.4 C L 98 H 20 158/79 H 97 03/24/19 07:00 36.5 C 97 H 18 161/80 H 97 03/24/19 04:17 37.0 C 101 H 20 164/85 H 97 03/24/19 04:15 95 H PG Care Time/CCT Total # of Minutes Spent Total Time Spent with Patient: Total time spent is greater than 50% in coordination of care (as documented) at patient's floor/unit and/or counseling patient: (1) Hypertension Hypertension type: unspecified Qualified Code(s): I10 - Essential (primary) hypertension
[2019-03-25] MEDS: INSULIN HUMAN REGULAR SC SCH ×6 (05:36→17:28)
[2019-03-25] MEDS: carvediloL 6.25 MG TAB PO SCH ×2 (08:01→08:32)
[2019-03-25] MEDS: NEPHROCAPS PO SCH (08:13)
[2019-03-25] MEDS: FAMOTIDINE 20 MG TAB PO SCH (08:13)
[2019-03-25] MEDS: SERTRALINE HCL 100 MG TABLET PO SCH (08:13)
[2019-03-25] MEDS: BuPROPion SR 100 MG TABCR PO SCH (08:13)
[2019-03-25] MEDS: ATORVASTATIN 10 MG TAB PO SCH (08:13)
[2019-03-25] MEDS: AMLODIPINE BESYLATE 5 MG TAB PO SCH (08:32)
[2019-03-25] MEDS ORDERED: SODIUM CHLORIDE 0.9% 1000ML 1,000 ML IV PRN (09:14)
[2019-03-25] MEDS ORDERED: HEPARIN SOD (PORCINE) 1000 UNIT/ML 10 ML VIAL IV ONE (09:14)
--- NOTE | 2019-03-25 12:44 | Pharmacy Report ---
Pharmacy Glycemic Short Note 2 - Date of Service March 25, 2019 - Glycemic Short BSG Results (Last 24 hours): 03/24/19 03/24/19 03/24/19 16:43 18:08 23:20 POC Glucose 146 H 242 H 170 H 03/25/19 03/25/19 03/25/19 05:35 08:12 12:11 POC Glucose 175 H 155 H 129 H OUTPATIENT ANTIDIABETIC REGIMEN: * Basaglar 18 units daily * Humalog using CR 1:10 + SS * A1c unreliable d/t ESRD - Assessment & Plan ASSESSMENT: 03/25 * BSGs have been well controlled over the past 24 hours, ranging from 129-170 mg/dL * No change to causes of insulin resistance * He received 11 units of "basal" insulin and 10 units of correctional insulin yesterday * Current regimen works well as an inpatient, to allow for q6h titration of basal/prandial insulin when PO intake is sporadic 03/24 * 48 y/o male with T1DM well known to the pharmacy glycemic service, admitted 1 day after previous discharge for intractable nausea/vomiting * Father reported that BSGs have been well controlled in the outpatient setting, he did receive his Lantus dose yesterday AM * During previous admissions, we have switched him to Regular insulin q6h to serve as basal/prandial/correctional due to his sporadic eating habits and severe gastroparesis. This has traditionally worked well so will continue to trial. * BSGs are currently elevated so will increase the "basal" scale to provide an additional 1 unit with each dose when BSG is elevated PLAN FOR INPATIENT GLYCEMIC CONTROL: * Basal/prandial insulin - no change * Novolin R q6h per the following scale: * 1 unit for BSG < 110 * 2 units for BSG 110-150 * 3 units for BSG > 150 * Correctional insulin - no change * Novolin R per scale q6h, to coincide with basal dosing * Goal Range: Low 110 mg/dL - High 150 mg/dL * Correction Factor: 30 mg/dL/unit Discharge Recommendations: * A1c is unreliable d/t ESRD * Per reports of outpatient control, he has been well controlled. Recommend to continue same regimen on discharge.
[2019-03-25] MEDS: HEPARIN SOD (PORCINE) 1000 UNIT/ML 10 ML VIAL IV SCH (14:14)
[2019-03-25] MEDS ORDERED: Nursing to Pharmacy Communication ONE (15:32)
--- NOTE | 2019-03-25 16:22 | Hospitalist Progress Note ---
Date of Service March 25, 2019 Assessment & Plan (1) Hypertension: In the ED, BP was as high as 200/110 despite multiple pushes of IV labetalol. His father notes that he was told by nephrology to hold his BP meds before his dialysis sessions, so they have been doing that; however, I think this may be contributing to his high BPs after HD and possibly exacerbating his nausea. - Continue home HTN meds - Hydralazine PRN - By 03/25, BP was 190/110. Increased his Coreg to 12.5mg PO BID and continued his amlodipine. Reached out to [facility] nephrology, but haven't heard back yet regarding further titration of BP meds. (2) Intractable nausea and vomiting: Occurring now twice in the setting of high blood pressure. - Zofran & Reglan PRN - Monitor QTc - 513 on 03/14 which is better than yesterday and stable from many priors. - Will not skip meds before HD which is what they have been doing (following physician instructions). Will keep him here long enough to run at least 1 HD session to see if HD has any relation to his nausea & vomiting. (3) ESRD (end stage renal disease): Due to DM. - Consult nephrology - Continue NephroCaps - Renally-dose medications - Electrolytes like stable after HD today. Will check tomorrow. (4) DM (diabetes mellitus): DM1. Per father, he has been fairly well controlled in the last few weeks, and he had good blood sugar control while out of the hospital. Did get the morning Lantus dose. - Continue home Lantus - Sliding scale insulin - Glycemic pharmacist to assist (5) Severe protein-calorie malnutrition: Multifactorial from DM, ESRD, nausea and vomiting. - Monitor diet while inpatient (6) DVT prophylaxis: SCDs - Low DVT risk per admission calculator Subjective Actually feels quite well today. HD went without a problem. He is eating lunch without an issue. Reports no fevers/chills, chest pain, shortness of breath, abdominal pain, nausea, or vomiting. Physical Exam Constitutional: + cachectic and + frail appearing; no acute distress Eyes: EOM intact bilaterally; no conjunctival abnormality ENMT: external ear and nose normal, oropharynx normal Neck: trachea midline, no thyromegaly normal visual inspection Respiratory: normal respiratory effort, lungs clear to auscultation no respiratory distress Cardiovascular: RRR, no murmur, no edema Gastrointestinal (Abdomen): Inspection/Auscultation: abdomen normal to inspection; abdomen not distended Musculoskeletal: no cyanosis or clubbing, extremities motor strength 5/5 Skin: no rashes, warm and dry Neurologic: moves all extremities and awake Psychiatric: Orientation: alert, oriented to person and cooperative Results & Data Vital Signs (Past 12 Hours) Vital Signs Temp Pulse Pulse Pulse Resp BP BP 03/25/19 15:23 36.9 C 85 16 133/73 03/25/19 13:29 37.2 C 82 194/113 H 03/25/19 13:12 82 194/113 H 03/25/19 13:00 82 187/110 H 03/25/19 12:40 82 170/93 H 03/25/19 12:20 82 182/109 H 03/25/19 12:00 82 173/105 H 03/25/19 11:40 83 177/106 H 03/25/19 11:20 85 182/112 H 03/25/19 11:00 86 189/115 H 03/25/19 10:40 84 184/112 H 03/25/19 10:20 83 173/107 H 03/25/19 10:00 82 157/95 H 03/25/19 09:42 36.8 C 90 90 180/105 H 03/25/19 07:38 36.7 C 84 16 182/93 H 03/25/19 07:31 81 Pulse Ox 03/25/19 15:23 95 03/25/19 13:29 03/25/19 13:12 03/25/19 13:00 03/25/19 12:40 03/25/19 12:20 03/25/19 12:00 03/25/19 11:40 03/25/19 11:20 03/25/19 11:00 03/25/19 10:40 03/25/19 10:20 03/25/19 10:00 03/25/19 09:42 03/25/19 07:38 95 03/25/19 07:31 PG Care Time/CCT Total # of Minutes Spent Total Time Spent with Patient: Total time spent is greater than 50% in coordination of care (as documented) at patient's floor/unit and/or counseling patient: (1) Hypertension Hypertension type: unspecified Qualified Code(s): I10 - Essential (primary) hypertension
--- NOTE | 2019-03-25 17:42 | Nephrology Progress Note ---
Date of Service March 25, 2019 Assessment & Plan (1) ESRD on dialysis: Patient on HD MWF. Last HD was Thursday. Patient tolerated HD today for 3.5hrs and net UF 1 litre. Next HD Thursday (2) Hypertension: BP is above target. Continue coreg to 6.25mg bid. Hold coreg on morning of HD. Patient advised not to check BP while wretching and vomiting as it will be high (3) Intractable nausea and vomiting: Recurrent problem in setting of gastroparesis. Continue supportive management with zofran as needed (4) Acute hyponatremia: Patient admitted of Na of 129 which would correct to about 131 after correction for glucose. na better this morning. No need to make changes. Will optimize with dialysis tomorrow Subjective Patient seen and examined while on dialysis. No SOB or cramps. he is tolerating HD well. No vomiting Review of Systems Review of Systems: All systems reviewed & are unremarkable except as noted in HPI & below Physical Exam Physical Exam: General exam: Appears comfortable, no acute distress HEENT: Pupils are equal and reactive to light Neck: No JVD, neck is supple trachea is midline Respiratory system: Clear breath sounds bilaterally. Gastrointestinal: Abdomen is soft, non distended, non tender, bowel sounds are present CVS: Regular rate and rhythm. No murmurs, rubs or gallops Musculoskeletal: No joint or muscle tenderness Extremities: Non tender, no edema, peripheral pulses are present Neuro: Oriented, no tremors, no focal neurological deficits Skin: No rashes Results & Data Vital Signs (Past 12 Hours) Vital Signs Temp Pulse Pulse Pulse Resp BP BP 03/25/19 16:00 82 03/25/19 15:23 36.9 C 85 16 133/73 03/25/19 13:29 37.2 C 82 194/113 H 03/25/19 13:12 82 194/113 H 03/25/19 13:00 82 187/110 H 03/25/19 12:40 82 170/93 H 03/25/19 12:20 82 182/109 H 03/25/19 12:00 82 173/105 H 03/25/19 11:40 83 177/106 H 03/25/19 11:20 85 182/112 H 03/25/19 11:00 86 189/115 H 03/25/19 10:40 84 184/112 H 03/25/19 10:20 83 173/107 H 03/25/19 10:00 82 157/95 H 03/25/19 09:42 36.8 C 90 90 180/105 H 03/25/19 07:38 36.7 C 84 16 182/93 H 03/25/19 07:31 81 Pulse Ox 03/25/19 16:00 03/25/19 15:23 95 03/25/19 13:29 03/25/19 13:12 03/25/19 13:00 03/25/19 12:40 03/25/19 12:20 03/25/19 12:00 03/25/19 11:40 03/25/19 11:20 03/25/19 11:00 03/25/19 10:40 03/25/19 10:20 03/25/19 10:00 03/25/19 09:42 03/25/19 07:38 95 03/25/19 07:31 Laboratory Results Laboratory Results - last 24 hr 03/24/19 03/24/19 03/25/19 18:08 23:20 05:35 POC Glucose 242 H 170 H 175 H 03/25/19 03/25/19 03/25/19 08:12 12:11 16:37 POC Glucose 155 H 129 H 227 H (1) Hypertension Hypertension type: unspecified Qualified Code(s): I10 - Essential (primary) hypertension
[2019-03-25] MEDS: carvediloL 12.5 MG TAB PO SCH (20:58)
[2019-03-25] MEDS ORDERED: INSULIN HUMAN REGULAR PER UNIT 5 UNITS in SYRINGE 4.95 ML IV ONE (21:00)
[2019-03-26] MEDS: INSULIN HUMAN REGULAR SC SCH ×6 (00:35→13:18)
[2019-03-26] MEDS ORDERED: INSULIN HUMAN REGULAR SC SCH (02:00)
[2019-03-26] MEDS ORDERED: INSULIN HUMAN REGULAR PER UNIT 4 UNITS in SYRINGE 3.96 ML IV ONE ×2 (02:45→13:00)
[2019-03-26] MEDS ORDERED: INSULIN HUMAN REGULAR SC ONE (04:00)
[2019-03-26 06:49] LABS: Hemoglobin 11.5 g/dL (14.0-18.0); Mean Corpuscular Hemoglobin 33.9 pg (25-34); Mean Corpuscular Hgb Conc 31.9 g/dL (32-36); Mean Corpuscular Volume 106.2 fL (80-100); Mean Platelet Volume 8.9 fL (7.4-10.4); Platelet Count 219 K/uL (130-400); RDW Coefficient of Variation 17.1 % (11.5-14.5); RDW Standard Deviation 65.7 fL (36.4-46.3); Red Blood Count 3.39 M/uL (4.7-6.1); White Blood Count 9.31 K/uL (4.8-10.8)
[2019-03-26 07:26] LABS: BUN Creatinine Ratio 9.5 (10-20); Calcium 8.1 mg/dl (8.5-10.1); Creatinine Clr Calc Pharmacy 18.2 ml/min; Est GFR (African American) 18.9; Est GFR (Non-African American) 16.3; Potassium 3.9 mmol/L (3.5-5.1)
[2019-03-26] MEDS: carvediloL 12.5 MG TAB PO SCH (08:07)
[2019-03-26] MEDS: SERTRALINE HCL 100 MG TABLET PO SCH (08:08)
[2019-03-26] MEDS: ATORVASTATIN 10 MG TAB PO SCH (08:08)
[2019-03-26] MEDS: BuPROPion SR 100 MG TABCR PO SCH (08:08)
[2019-03-26] MEDS: AMLODIPINE BESYLATE 5 MG TAB PO SCH (08:08)
[2019-03-26] MEDS: FAMOTIDINE 20 MG TAB PO SCH (08:09)
[2019-03-26] MEDS: NEPHROCAPS PO SCH (08:09)
[2019-03-26] MEDS ORDERED: LOSARTAN POTASSIUM 25 MG TAB PO SCH (09:00)
[2019-03-26] MEDS: PROCHLORPERAZINE 5 MG in SYRINGE 4 ML IV PRN (10:31)
[2019-03-26] MEDS ORDERED: INSULIN HUMAN REGULAR SC STA (15:31)
--- NOTE | 2019-03-26 17:52 | Discharge Summary ---
Date of Service March 26, 2019 Admission HPI Per Admitting Provider 48yo M w/ hx of DM1 complicated by gastroparesis, ESRD, and HTN who presents with nausea and vomiting. He was in the hospital recently. During that admission, his BP started high and trended down. He experienced nausea on admission as well which resolved without any IV medications. He was discharged, and did well overnight, but notes that he had a return of his nausea and vomiting today. He reports that he attended his normal HD session. Once he was on the way home, he began to have more nausea and threw up once with subsequent dry heaving. At home, his home nurse checked his blood pressure and it was upwards of 190/110, and he was told to go to the Emergency Department. Of note, his father reports that he has been told to hold his blood pressure medications the morning of his HD sessions. He did so this morning, but took them at 10am when his BP was found to be very high. Principal Diagnosis Hypertension Discharge Exam Constitutional + cachectic and + frail appearing; no acute distress Eyes EOM intact bilaterally; no conjunctival abnormality ENMT external ear and nose normal, oropharynx normal Neck trachea midline, no thyromegaly normal visual inspection Respiratory normal respiratory effort, lungs clear to auscultation no respiratory distress Cardiovascular RRR, no murmur, no edema Gastrointestinal (Abdomen) Inspection/Auscultation: abdomen normal to inspection; abdomen not distended Musculoskeletal no cyanosis or clubbing, extremities motor strength 5/5 Skin no rashes, warm and dry Neurologic moves all extremities and awake Psychiatric Orientation: alert, oriented to person and cooperative Discharge Data Allergies Allergy/AdvReac Type Severity Reaction Status Date / Time shellfish derived Allergy Severe anaphylaxis Verified 03/23/19 15:00 codeine Allergy Intermediate Hives Verified 03/23/19 15:00 promethazine Allergy Intermediate itchy/hives Verified 03/23/19 15:00 Consultations 03/23/19 16:39 ED Decision to Admit Stat 03/23/19 19:56 Consult Nephrology Routine Hospital Course (1) Hypertension: In the ED, BP was as high as 200/110 despite multiple pushes of IV labetalol. His father notes that he was told by cardiology to hold his BP meds before his dialysis sessions, so they have been doing that; however, I think this may be contributing to his high BPs after HD and possibly exacerbating his nausea. - His BP remained quite high despite adjusting his meds and increasing doses. - On discharge, he was on amlodipine 10mg daily (same), carvedilol 12.5mg PO BID (increase dose), and losartan 25mg PO daily (new med). We talked over it, and he will take his meds on Thursday morning before dialysis and see Dr. Guadalupe at dialysis for further titration. (2) Intractable nausea and vomiting: Occurring now twice in the setting of high blood pressure. - Zofran & Reglan PRN - Monitor QTc - 513 on 03/14 which is better than yesterday and stable from many priors. - As with last admission, he had minimal nausea and vomiting here. He used about 1 dose of Compazine, and that was all. I am unclear why his nausea and vomiting are so bad outpatient that he comes to the ED, but then has minimal symptoms in the hospital. (3) ESRD (end stage renal disease): Due to DM. - Consulted nephrology - Continue NephroCaps - Had HD on 03/25. BP was high, but no nausea or vomiting. (4) DM (diabetes mellitus): DM1. Per father, he has been fairly well controlled in the last few weeks, and he had good blood sugar control while out of the hospital. Did get the morning Lantus dose. - Continue home Lantus - Sliding scale insulin - Glycemic pharmacist to assist - Blood sugars were overall well-controlled except after a few meals when they went over 300. Encouraged to follow up with his endocrinology clinic and PCP. (5) Severe protein-calorie malnutrition: Multifactorial from DM, ESRD, nausea and vomiting. - Monitor diet while inpatient (6) DVT prophylaxis: SCDs - Low DVT risk per admission calculator Total Time Total Time Spent Total Time Spent (In Minutes): 35 Discharge Plan Discharge Items Patient Disposition: Home - Self-Care Reason For Visit: HYPERTENSION Discharge Diagnosis: Hypertension and nausea/vomiting Activity: Resume your previous activity Non-emergency contact: Primary Care Provider and [facility] Call non-emergency contact if: your symptoms worsen Follow-up/Referrals: Cory Celestin MD [Primary Care Provider] - Diet: Carb Count or DM1 and Dialysis Renal Addtl Attending Provider Instructions: Mr. De Los Santos, You were admitted to the hospital for high blood pressure. We adjusted your medications, and it has come down. We are starting you on a new blood pressure medication called losartan that will hopefully help keep it getting better over the next day or two. Please follow up with Dr. Guadalupe at dialysis on Thursday to discuss any other changes that could help keep your blood pressure under control. Pending Studies at Discharge: No Stand-Alone Forms: My [facility] Medications and DC Order Prescriptions: New carvedilol 12.5 mg Tablet 12.5 mg PO BID Qty: 60 RF: 0 losartan 25 mg Tablet 25 mg PO QAM Qty: 30 RF: 0 Continued pen needle, diabetic [BD Ultra-Fine Annalise Pen Needle] 32 gauge x 5/32" needle .ROUTE .MEDSUPPLY Qty: 200 RF: 5 Contour Next Test Strips strip .ROUTE .MEDSUPPLY Qty: 600 RF: 3 Basaglar KwikPen U-100 Insulin 100 unit/mL (3 mL) insulin pen 18 units SQ DAILY@0930 Qty: 30 RF: 1 famotidine 20 mg tablet 20 mg PO QAM RF: 0 acetaminophen 325 mg tablet 650 mg PO UD PRN (Reason: fever or pain) RF: 0 ondansetron HCl [Zofran] 4 mg tablet 4 mg PO QID PRN (Reason: Nausea And Vomiting) RF: 0 atorvastatin 10 mg tablet 10 mg PO QAM RF: 0 metoclopramide HCl 5 mg tablet 5 mg PO Q6H RF: 0 Chris Caps 1 mg capsule 1 cap PO QAM RF: 0 calcium acetate 667 mg capsule 667 mg PO TIDM MDD 7 CAPSULES/DAY RF: 0 aprepitant 80 mg capsule 80 mg PO UD PRN (Reason: Nausea) RF: 0 bupropion HCl 100 mg tablet sustained-release 12 hr 100 mg PO QAM RF: 0 insulin lispro [Admelog SoloStar U-100 Insulin] 100 unit/mL insulin pen See Rx Instructions subcut DAILY PRN (Reason: sliding scale) RF: 0 lorazepam 0.5 mg Tablet 0.5 mg SUBLINGUAL Q6H PRN (Reason: Anxiety) RF: 0 amlodipine 10 mg tablet 10 mg PO QAM RF: 0 sertraline 100 mg tablet 100 mg PO QAM RF: 0 cholecalciferol (vitamin D3) 2,000 unit capsule 2,000 unit PO QAM RF: 0 triamcinolone acetonide 0.1 % cream 1 applic topical TID RF: 0 Discontinued carvedilol 3.125 mg tablet 3.125 mg PO BID Qty: 60 RF: 2 Discharge Orders: Discharge Order (Routine); Ordered 03/26/19 Ordered By: Sergo Rey Admission Data Admit Date/Time: 03/23/19 18:08 Attending Provider: Sergo Rey Admit Provider: Sergo Rey Primary Care Provider: Cory Celestin Other Providers: Ravi Winter ; Lor Guadalupe Other Interventions: Discharge Summary Assessment (RN) Last Done: 03/26/19 15:10 DC Date/Time DO NOT enter until pt leaves facility: 03/26/19 16:52
== END 2019-03-26 16:52 | disposition home health service (06) | DRG 682 ==
LOC: ED 11:47 → 2N 18:08

== ENCOUNTER 2019-03-27 18:49 | Inpatient (IN) ==
[2019-03-27] MEDS ORDERED: LABETALOL HCL IV 5 MG/ML 20ML IV STA (21:02)
[2019-03-27] MEDS ORDERED: LORazepam 0.5 MG/1 ML VIAL IV STA ×2 (21:02→23:11)
[2019-03-27] MEDS ORDERED: ONDANSETRON INJ 2 MG/ML 2 ML VIAL IV STA (21:02)
[2019-03-27] MEDS ORDERED: PROCHLORPERAZINE 10 MG in SYRINGE 8 ML IV PRN (21:05)
[2019-03-27] MEDS ORDERED: DiphenhydrAMINE HCL 50 MG/ML VIAL IV STA (21:05)
[2019-03-27] MEDS ORDERED: SODIUM CHLORIDE 0.9% 250 ML IV ONE (21:06)
[2019-03-27] MEDS ORDERED: PROCHLORPERAZINE 5 MG/ML 2 ML VIAL ONE (21:14)
[2019-03-27 21:56] LABS: Alanine Aminotransferase 19 U/L (12-78); Albumin Level 3.8 gm/dl (3.4-5.0); Alkaline Phosphatase 153 U/L (45-117); Aspartate Aminotransferase 13 U/L (15-37); BUN Creatinine Ratio 11.6 (10-20); Bilirubin,Total 0.5 mg/dl (0.2-1); Blood Urea Nitrogen 76 mg/dl (7-18); Carbon Dioxide 16 mmol/L (21-32); Chloride 98 mmol/L (98-107); Est GFR (African American) 10.6; Est GFR (Non-African American) 9.2; Globulin 3.6 gm/dl (2.5-4.0); Glucose 110 mg/dl (70-99); Potassium 4.5 mmol/L (3.5-5.1); Sodium 131 mmol/L (136-145); Total Protein 7.4 gm/dl (6.4-8.2)
[2019-03-27] MEDS ORDERED: HydrALAZINE HCL 20 MG/ML VIAL IV STA (22:12)
[2019-03-27 23:30] LABS: Hematocrit (blood only) 46.5 % (42-52); Hemoglobin 15.4 g/dL (14.0-18.0); Mean Corpuscular Hemoglobin 33.6 pg (25-34); Mean Corpuscular Hgb Conc 33.1 g/dL (32-36); Mean Corpuscular Volume 101.3 fL (80-100); Platelet Count 298 K/uL (130-400); Red Blood Count 4.59 M/uL (4.7-6.1); White Blood Count 13.29 K/uL (4.8-10.8)
--- NOTE | 2019-03-27 23:35 | Emergency Department Note ---
Entered by Godwin Chavez acting as a scribe for History of Present Illness General Chief complaint: Hypertension Stated complaint: VOMITTING Time Seen by Provider: 03/27/19 20:57 Source: patient History of Present Illness Provider complaint: Hypertension Onset (ago): hour(s) (Today) Location: abdomen Severity: similar to prior episodes Pain Consistency: + constant Exacerbated By: + none Associated symptoms: + nausea/vomiting The patient is a 48 year old male who presents to the Emergency Room after being sent by home health for constant hypertension that was noticed today. The patient was just hospitalized for a week for hypertension and while here his blood pressure was fairly stable. The patient was discharged yesterday and today his blood pressure increased back to where it was before his hospital stay. The patient also endorses constant nausea, vomiting and chills this time which is similar to how he presented to the ED the last time his blood pressure was elevated. The patient states his Carvedilol was tripled and he was started on Losartan upon discharge. The patient adds that he has been taking his medicat ions as instructed, but he has not taken his PM doses due to his nausea and vomiting. The patient denies any stressors at home that may cause the increase in blood pressure. Home Medications Home Medications Medication Instructions Recorded Confirmed Type Crhis Caps 1 cap PO QAM 12/19/18 03/27/19 History calcium acetate 667 mg PO TIDM MDD 7 CAPSULES/DAY 12/19/18 03/27/19 History atorvastatin 10 mg tablet 10 mg PO QAM tab 01/06/19 03/27/19 History ondansetron HCl 4 mg tablet 4 mg PO QID PRN 01/12/19 03/27/19 History aprepitant 80 mg PO UD PRN 01/31/19 03/27/19 History bupropion HCl 100 mg PO QAM 01/31/19 03/27/19 History insulin lispro [Admelog SoloStar See Rx Instructions SUBCUT DAILY 01/31/19 03/27/19 History U-100 Insulin] PRN acetaminophen 325 mg tablet 650 mg PO UD PRN tab 03/10/19 03/27/19 History famotidine 20 mg tablet 20 mg PO QAM tab 03/10/19 03/27/19 History metoclopramide 5 mg tablet 5 mg PO Q6H tab 03/10/19 03/27/19 History amlodipine 10 mg PO QAM 03/21/19 03/27/19 History cholecalciferol (vitamin D3) 2,000 unit PO QAM 03/21/19 03/27/19 History lorazepam 0.5 mg SUBLINGUAL Q6H PRN 03/21/19 03/27/19 History sertraline 100 mg PO QAM 03/21/19 03/27/19 History insulin glargine (U-100) 100 18 units SQ DAILY@0930 #30 ml 03/23/19 03/27/19 Rx unit/mL (3 mL) subcutaneous pen triamcinolone acetonide 1 applic TOPICAL TID 03/23/19 03/27/19 History carvedilol 12.5 mg PO BID #60 tab 03/26/19 03/27/19 Rx losartan 25 mg PO QAM #30 tab 03/26/19 03/27/19 Rx Allergies Allergy/AdvReac Type Severity Reaction Status Date / Time shellfish derived Allergy Severe anaphylaxis Verified 03/27/19 20:59 codeine Allergy Intermediate Hives Verified 03/27/19 20:59 promethazine Allergy Intermediate itchy/hives Verified 03/27/19 20:59 Past Med/Surg History Medical History DM (diabetes mellitus) CAD (coronary artery disease) mild, non-obstructive CAD per 10/2018 cardiac cath ESRD (end stage renal disease) Hemodialysis M,W,F (Follows with Dr. Taylor Higgins; [facility]). Kidney stones Peripheral neuropathy Retinopathy due to secondary diabetes Surgical History H/O shoulder surgery RIGHT History of appendectomy History of cardiac cath 10/2018= no stents, no obstructive disease (at [facility]) History of hip surgery LEFT HIP ARTHROSCOPY History of lithotripsy Permanent central venous catheter in place Permacath Family History Grandfather Myocardial infarction Grandfather (Maternal) Family history of diabetes mellitus Uncle Myocardial infarction Social History Preferred Language: Chinese Communication Ability: Effective Visual Impairment: No Limitations Hearing Ability: Normal [employer] Supervisor Required: No Beliefs That Will Affect Care: None marital status: Current Living Situation: Parent current occupational status: unemployed Feels Safe at Home: Yes Smoking Status: Never smoker Tobacco Type: smokeless tobacco ; Second Hand Exposure: No ; Hx Alcohol Use: No Hx Substance Use: No Childhood Exposure to Second-Hand Smoke: Yes Dental Care, Regularly: No Physical Activity Frequency: 1-2 Times per Week Seatbelt Use: always Sunscreen Use: No Review of Systems See HPI for pertinent positives & negatives. and A total of 10 systems reviewed and were otherwise negative Physical Exam Vital Signs Vital Signs - 24 hr 03/27/19 19:21 03/27/19 21:21 03/27/19 21:35 Temperature 36.4 C L Temperature Source Oral Sepsis Recent Fever Within 48 Hours No Sepsis Action Taken by Nursing No Action Required Pulse Rate 88 91 H Pulse Rate [Apical] Pulse Rate from SpO2 Sensor 91 H Respiratory Rate 18 Respiratory Effort / Characteristics Non-Labored Respiratory Depth Normal Respiratory Pattern Blood Pressure 199/102 H 222/123 H Blood Pressure [Right Arm] Blood Pressure Mean 134 156 Blood Pressure Mean [Right Arm] Blood Pressure Position [Right Arm] Pulse Oximetry 100 100 100 Oxygen Delivery Method Room Air Room Air 03/27/19 21:39 03/27/19 21:45 03/27/19 22:00 Temperature Temperature Source Sepsis Recent Fever Within 48 Hours Sepsis Action Taken by Nursing Pulse Rate 77 79 Pulse Rate [Apical] 91 H Pulse Rate from SpO2 Sensor 78 79 Respiratory Rate 16 12 Respiratory Effort / Characteristics Non-Labored Spontaneous Respiratory Depth Respiratory Pattern Regular Blood Pressure 204/114 H 205/113 H Blood Pressure [Right Arm] 222/123 H Blood Pressure Mean 144 143 Blood Pressure Mean [Right Arm] 156 Blood Pressure Position [Right Arm] Right Lateral Pulse Oximetry 100 99 100 Oxygen Delivery Method Room Air 03/27/19 22:15 03/27/19 22:30 03/27/19 22:45 Temperature Temperature Source Sepsis Recent Fever Within 48 Hours Sepsis Action Taken by Nursing Pulse Rate 77 78 78 Pulse Rate [Apical] Pulse Rate from SpO2 Sensor 77 78 78 Respiratory Rate 14 12 Respiratory Effort / Characteristics Respiratory Depth Respiratory Pattern Blood Pressure 192/108 H 179/103 H 157/91 H Blood Pressure [Right Arm] Blood Pressure Mean 136 128 113 Blood Pressure Mean [Right Arm] Blood Pressure Position [Right Arm] Pulse Oximetry 98 98 98 Oxygen Delivery Method 03/27/19 23:00 03/27/19 23:15 03/27/19 23:30 Temperature Temperature Source Sepsis Recent Fever Within 48 Hours Sepsis Action Taken by Nursing Pulse Rate 80 81 81 Pulse Rate [Apical] Pulse Rate from SpO2 Sensor 80 81 81 Respiratory Rate 16 Respiratory Effort / Characteristics Respiratory Depth Respiratory Pattern Blood Pressure 160/95 H 163/93 H 167/93 H Blood Pressure [Right Arm] Blood Pressure Mean 116 116 117 Blood Pressure Mean [Right Arm] Blood Pressure Position [Right Arm] Pulse Oximetry 97 97 97 Oxygen Delivery Method 03/27/19 23:45 03/28/19 00:00 03/28/19 00:15 Temperature Temperature Source Sepsis Recent Fever Within 48 Hours Sepsis Action Taken by Nursing Pulse Rate 82 83 82 Pulse Rate [Apical] Pulse Rate from SpO2 Sensor 82 83 82 Respiratory Rate 14 Respiratory Effort / Characteristics Respiratory Depth Respiratory Pattern Blood Pressure 156/94 H 176/98 H 166/95 H Blood Pressure [Right Arm] Blood Pressure Mean 114 124 118 Blood Pressure Mean [Right Arm] Blood Pressure Position [Right Arm] Pulse Oximetry 98 97 96 Oxygen Delivery Method GENERAL: Patient is in moderate distress, dry heaving on exam. HEENT: No acute trauma, normocephalic atraumatic, mucous membranes moist, no nasal congestion, no scleral icterus. NECK: No stridor, no adenopathy, no meningismus, trachea is midline. LUNGS: Clear to auscultation bilaterally, no wheeze, no rhonchi, breath sounds equal. HEART: Without murmurs gallops or rubs, regular rate and rhythm. ABDOMEN: Soft, nontender, bowel sounds positive, no hernias, no peritonitis. EXTREMITIES: No cyanosis or edema, full range of motion of all the joints wit hout pain or difficulty, no signs for acute trauma. NEUROLOGIC: Oriented x 3, no acute motor or sensory deficits, no focal weakness. SKIN: No rash, no jaundice, no diaphoresis. Course 2056: Past medical records reviewed. The patient was evaluated in room C02B, and a complete history and physical examination were performed. 2124: I spoke to Dr. Guajardo - [facility] Hospitalist about the patient's case given that he knows about the patient from his previous stay. 2299: I reevaluated the patient and he is stable. I updated him on results as well. We discussed the treatment plan and he agreed with the plan. 2307: I spoke to Dr. Guajardo about the patient's work up and results. He will be accepting the patient for further evaluation. Consultations Consultation #1: I spoke to Dr. Guajardo - [facility] Hospitalist about the patient's case given that he knows about the patient from his previous stay. Time: 21:25 Consultation #2: I spoke to Dr. Guajardo about the patient's work up and re sults. He will be accepting the patient for further evaluation. Time: 23:08 Administered Medications Prochlorperazine 10 mg/ (Syringe) 10 mls @ 5 mls/min IV UD PRN PRN Reason: Nausea And Vomiting Stop: 04/26/19 21:04 Last Admin: 03/27/19 21:29 Dose: 5 mls/min Documented by: [id number] Discontinued Medications Diphenhydramine HCl (Benadryl) 25 mg IV NOW STA Stop: 03/27/19 21:06 Last Admin: 03/27/19 21:22 Dose: 25 mg Documented by: [id number] Hydralazine HCl (Hydralazine Hcl) 10 mg IV NOW STA Stop: 03/27/19 22:13 Last Admin: 03/27/19 22:27 Dose: 10 mg Documented by: [id number] Lorazepam (Ativan) 0.5 mg in 1 mls @ 1 mls/min IV NOW STA Stop: 03/27/19 21:03 Last Admin: 03/27/19 21:29 Dose: 1 mls/min Documented by: [id number] Sodium Chloride (Nss) 250 mls @ 999 mls/hr IV .Q16M ONE Stop: 03/27/19 21:21 Last Infusion: 03/27/19 22:29 Dose: 0 mls/hr Documented by: [id number] Admin: 03/27/19 21:29 Dose: 999 mls/hr Documented by: [id number] Lorazepam (Ativan) 0.5 mg in 1 mls @ 1 mls/min IV NOW STA Stop: 03/27/19 23:12 Last Admin: 03/27/19 23:19 Dose: 1 mls/min Documented by: [id number] Labetalol HCl (Normodyne) 20 mg IV NOW STA Stop: 03/27/19 21:03 Last Admin: 03/27/19 21:36 Dose: 20 mg Documented by: [id number] Cosigned by: [id number] Ondansetron HCl (Zofran) 4 mg IV NOW STA Stop: 03/27/19 21:03 Last Admin: 03/27/19 21:23 Dose: 4 mg Documented by: [id number] Prochlorperazine (Compazine) Confirm Administered Dose 10 mg .ROUTE .STK-MED ONE Stop: 03/27/19 21:15 Last Admin: 03/27/19 21:30 Dose: Not Given Documented by: [id number] Medical Decision Making Differential Diagnosis Differential Diagnosis includes: Viral illness, electrolyte imbalance, anemia, dehydration, missed medication doses, uncontrolled hypertension, and MO, amongst others. Medical Records Attestation: I reviewed the patient's medical records. Home Medications Current Medication List: was personally reviewed by me Laboratory Data Attestation: I reviewed the patient's lab results. Result diagrams: 03/27/19 21:20 03/27/19 21:20 Lab Results 03/27/19 03/27/19 Range/Units 21:20 21:20 WBC 13.29 H (4.8-10.8) K/uL RBC 4.59 L (4.7-6.1) M/uL Hgb 15.4 D (14.0-18.0) g/dL Hct 46.5 (42-52) % MCV 101.3 H (80-100) fL MCH 33.6 (25-34) pg MCHC 33.1 (32-36) g/dL Plt Count 298 (130-400) K/uL Sodium 131 L (136-145) mmol/L Potassium 4.5 D (3.5-5.1) mmol/L Chloride 98 (98-107) mmol/L Carbon Dioxide 16 L (21-32) mmol/L Anion Gap 18.0 H (3-11) BUN 76 H D (7-18) mg/dl Creatinine 6.52 H* D (0.6-1.4) mg/dl Est Cr Clr Drug Dosing Not Reportable Est GFR ( Amer) 10.6 Est GFR (Non-Af Amer) 9.2 BUN/Creatinine Ratio 11.6 (10-20) Glucose 110 H (70-99) mg/dl Calcium 9.0 (8.5-10.1) mg/dl Total Bilirubin 0.5 (0.2-1) mg/dl AST 13 L (15-37) U/L ALT 19 (12-78) U/L Alkaline Phosphatase 153 H (45-117) U/L Total Protein 7.4 (6.4-8.2) gm/dl Albumin 3.8 (3.4-5.0) gm/dl Globulin 3.6 (2.5-4.0) gm/dl Albumin/Globulin Ratio 1.0 (0.9-2) ECG Data Attestation: I personally reviewed and interpreted this ECG as follows: Indication: nausea and vomiting Rate (beats per minute): 78 Rhythm: normal sinus Findings: + other (QTC of 497); no PAC, no PVC, no ST elevation and no ectopy Blood Pressure Blood Pressure Findings: Elevated blood pressure Blood Pressure Disposition: further management by hospitalist DAVID Narrative There is a mild leukocytosis, this could be from his vomiting and stress. No worrisome anemia. Patient had a normal platelet count. Renal panel testing shows a high creatinine consistent with his dialysis need. No worrisome electrolyte abnormality. Alk phos was mildly elevated, no bilirubin elevation. EKG shows a sinus rhythm, no acute ischemia. On exam, there were no focal neurologic deficits. The patient was not toxic. He was not febrile. He was dry heaving. Patient received multiple meds IV for his symptoms. He was given a small amount of IV saline. He received IV Compazine, IV Zofran, IV Ativan. He was given IV labetalol, IV hydralazine and IV Benadryl. He received a second dose of IV Ativan. The patient's blood pressure is now much better controlled. The value is 163 /93. He is still nauseated though. He does not feel he will be able to go home. He is afraid he will not be able to take his BP meds. I did speak with the patient and his family. I had case management talk with the family as well. The patient is likely going to require placement at a personal care facility. With all his issues and problems, his family does not currently seem able to continue to care for him. He has only been home from the hospital less than a day and is already back with the same symptoms that brought him to the hospital just a week ago. Patient has consented to more consistent and continued care. The family is in agreement as well. The on-call hospitalist has been consulted. Hospitalization is warranted, placement can be arranged tomorrow morning. Impression & Plan Uncontrolled hypertension, Vomiting, Failure of outpatient treatment Discharge Plan Visit Data Chief Complaint: Hypertension Stated Complaint: VOMITTING ED Provider: Dev Morgan Discharge Problem: Uncontrolled hypertension, Vomiting, Failure of outpatient treatment Patient Disposition: Being Evaluated by Hospitalist Discharge Instructions Interventions: ED Discharge Assessment Last Done: 03/28/19 00:22 Forms Stand Alone Forms: [facility] [employer] Prescriptions Prescriptions: No Action Basaglar KwikPen U-100 Insulin 100 unit/mL (3 mL) insulin pen 18 units SQ DAILY@0930 Qty: 30 RF: 1 famotidine 20 mg tablet 20 mg PO QAM RF: 0 acetaminophen 325 mg tablet 650 mg PO UD PRN (Reason: fever or pain) RF: 0 ondansetron HCl [Zofran] 4 mg tablet 4 mg PO QID PRN (Reason: Nausea And Vomiting) RF: 0 atorvastatin 10 mg tablet 10 mg PO QAM RF: 0 metoclopramide HCl 5 mg tablet 5 mg PO Q6H RF: 0 Chris Caps 1 mg capsule 1 cap PO QAM RF: 0 calcium acetate 667 mg capsule 667 mg PO TIDM MDD 7 CAPSULES/DAY RF: 0 aprepitant 80 mg capsule 80 mg PO UD PRN (Reason: Nausea) RF: 0 bupropion HCl 100 mg tablet sustained-release 12 hr 100 mg PO QAM RF: 0 insulin lispro [Admelog SoloStar U-100 Insulin] 100 unit/mL insulin pen See Rx Instructions subcut DAILY PRN (Reason: sliding scale) RF: 0 lorazepam 0.5 mg Tablet 0.5 mg SUBLINGUAL Q6H PRN (Reason: Anxiety) RF: 0 amlodipine 10 mg tablet 10 mg PO QAM RF: 0 sertraline 100 mg tablet 100 mg PO QAM RF: 0 cholecalciferol (vitamin D3) 2,000 unit capsule 2,000 unit PO QAM RF: 0 triamcinolone acetonide 0.1 % cream 1 applic topical TID RF: 0 carvedilol 12.5 mg Tablet 12.5 mg PO BID Qty: 60 RF: 0 losartan 25 mg Tablet 25 mg PO QAM Qty: 30 RF: 0 Referrals Referrals: Cory Celestin MD [Primary Care Provider] - Discharge Problem: Vomiting Qualifiers: Vomiting type: unspecified Vomiting Intractability: intractable Nausea presence: with nausea Qualified Code(s): R11.2 - Nausea with vomiting, unspecified The scribe's documentation has been prepared under my direction and personally reviewed by me in its entirety. I confirm that the note above accurately reflects all work, treatment, procedures, and medical decision making performed by me.
--- NOTE | 2019-03-28 00:16 | History & Physical Report ---
Date of Service March 28, 2019 Assessment & Plan (1) Intractable nausea and vomitin-year-old male past medical history of type 1 diabetes, end-stage renal disease on dialysis, gastroparesis, hypertension, depression presents with elevated blood pressure and intractable vomiting. [place] for observation and symptom control while awaiting placement for personal care facility. Intractable nausea/vomiting the setting of gastroparesis Providing antiemetics Admit for observation prior to placementpatient agrees to outpatient short- term personal care facility Mild leukocytosis, likely secondary to demargination Hypertensive urgency, hypertension Continue losartan, carvedilol, amlodipine Hydralazine as needed for pressures above 180/110 Type I diabetic, end-stage renal disease on dialysis Glycemic consult, continue insulin Patient is due for dialysis tomorrow, M, W, F regimen Depression/anxiety Continue Wellbutrin, sertraline, lorazepam DVT prophylaxisambulate, SCDs FENclear liquid diet CODE STATUSfull (2) Vomiting: (3) Hypertension: (4) Failure of outpatient treatment: (5) Acute hyponatremia: (6) ESRD on dialysis: (7) ESRD (end stage renal disease): (8) Depression: (9) Uncontrolled hypertension: (10) DM (diabetes mellitus): History of Present Illness Primary Care Provider: Cory Celestin MD 48-year-old male past medical history of type 1 diabetes, end-stage renal disease on dialysis, gastroparesis, hypertension, depression presents with elevated blood pressure and intractable vomiting. Patient has been in and out of the hospital over the past couple months. He has been unable to work since last May because of the symptoms. He lives at home with his parents and is on disability. The patient responds to questions primarily with yes or no answers. He is able to follow commands and open his eyes, but the medical his tory is limited. He denies any acute symptoms other than nausea at this time. Allergies Allergy/AdvReac Type Severity Reaction Status Date / Time shellfish derived Allergy Severe anaphylaxis Verified 03/27/19 20:59 codeine Allergy Intermediate Hives Verified 03/27/19 20:59 promethazine Allergy Intermediate itchy/hives Verified 03/27/19 20:59 Home Medications Home Medications Medication Instructions Recorded Confirmed Type [place] Caps 1 cap PO QAM 12/19/18 03/27/19 History calcium acetate 667 mg PO TIDM MDD 7 CAPSULES/DAY 12/19/18 03/27/19 History atorvastatin 10 mg tablet 10 mg PO QAM tab 01/06/19 03/27/19 History ondansetron HCl 4 mg tablet 4 mg PO QID PRN 01/12/19 03/27/19 History aprepitant 80 mg PO UD PRN 01/31/19 03/27/19 History bupropion HCl 100 mg PO QAM 01/31/19 03/27/19 History insulin lispro [Admelog SoloStar See Rx Instructions SUBCUT DAILY 01/31/19 03/27/19 History U-100 Insulin] PRN acetaminophen 325 mg tablet 650 mg PO UD PRN tab 03/10/19 03/27/19 History famotidine 20 mg tablet 20 mg PO QAM tab 03/10/19 03/27/19 History metoclopramide 5 mg tablet 5 mg PO Q6H tab 03/10/19 03/27/19 History amlodipine 10 mg PO QAM 03/21/19 03/27/19 History cholecalciferol (vitamin D3) 2,000 unit PO QAM 03/21/19 03/27/19 History lorazepam 0.5 mg SUBLINGUAL Q6H PRN 03/21/19 03/27/19 History sertraline 100 mg PO QAM 03/21/19 03/27/19 History insulin glargine (U-100) 100 18 units SQ DAILY@0930 #30 ml 03/23/19 03/27/19 Rx unit/mL (3 mL) subcutaneous pen triamcinolone acetonide 1 applic TOPICAL TID 03/23/19 03/27/19 History carvedilol 12.5 mg PO BID #60 tab 03/26/19 03/27/19 Rx losartan 25 mg PO QAM #30 tab 03/26/19 03/27/19 Rx Past Med/Surg History Medical History DM (diabetes mellitus) CAD (coronary artery disease) mild, non-obstructive CAD per 10/2018 cardiac cath ESRD (end stage renal disease) Hemodialysis M,W,F (Follows with Dr. Taylor Higgins; [facility]/[place]). Kidney stones Peripheral neuropathy Retinopathy due to secondary diabetes Surgical History H/O shoulder surgery RIGHT History of appendectomy History of cardiac cath 10/2018= no stents, no obstructive disease (at [facility]) History of hip surgery LEFT HIP ARTHROSCOPY History of lithotripsy Permanent central venous catheter in place Permacath Family History Grandfather Myocardial infarction Grandfather (Maternal) Family history of diabetes mellitus Uncle Myocardial infarction Social History Preferred Language: Montserratian Communication Ability: Effective Visual Impairment: No Limitations Hearing 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: 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 Beliefs That Will Affect Care: None marital status: Current Living Situation: Family current occupational status: unemployed Feels Safe at Home: Yes Safety Concerns: Feels Safe At This Time Smoking Status: Never smoker Tobacco Type: smokeless tobacco ; Second Hand Exposure: No ; Hx Alcohol Use: No Hx Substance Use: No Childhood Exposure to Second-Hand Smoke: Yes Dental Care, Regularly: No Physical Activity Frequency: 1-2 Times per Week Seatbelt Use: always Sunscreen Use: No Review of Systems Review of Systems: Unobtainable due to mental health condition History was limitedwith the patient denies any acute symptoms other than nausea Physical Exam Constitutional: WD/WN, vitals as above Eyes: PERRL, conjunctivae normal, anicteric sclerae ENMT: external ear and nose normal, oropharynx normal Neck: trachea midline, no thyromegaly Respiratory: normal respiratory effort, lungs clear to auscultation Cardiovascular: RRR, no murmur, no edema Gastrointestinal (Abdomen): normal bowel sounds, soft, nontender, no hepatosplenomegaly Musculoskeletal: no cyanosis or clubbing, extremities motor strength 5/5 Skin: no rashes, warm and dry Neurologic: PERRL, EOMI, accommodation nl, no face palsy, no dysarthria Psychiatric: Orientation: alert and oriented x 3 Eye Contact: + poor eye contact Mood: + depressed mood Results & Data Vital Signs (Past 12 Hours) Vital Signs Temp Pulse Pulse Resp BP BP Pulse Ox 03/27/19 23:45 82 156/94 H 98 03/27/19 23:30 81 167/93 H 97 03/27/19 23:15 81 16 163/93 H 97 03/27/19 23:00 80 160/95 H 97 03/27/19 22:45 78 12 157/91 H 98 03/27/19 22:30 78 179/103 H 98 03/27/19 22:15 77 14 192/108 H 98 03/27/19 22:00 79 12 205/113 H 100 03/27/19 21:45 77 204/114 H 99 03/27/19 21:39 91 H 16 222/123 H 100 03/27/19 21:35 91 H 222/123 H 100 03/27/19 21:21 100 03/27/19 19:21 36.4 C L 88 18 199/102 H 100 Code Status & VTE Plan Code Status Full code VTE Prophylaxis Plan VTE Prophylaxis will be ordered: Yes Supervising Physician Co-Signing Physician Notes Attending addendum: I have physically seen this patient, have supervised the medical residents activities, and agree with the H&P unless as otherwise noted. Assessment and Plan: Intractable nausea/vomiting/diabetic gastroparesis/question of medical noncompliance- Was discharged less than 24 hours ago, with multiple readmissions this year. 10 7 made to get him to go to a nursing facility, as he is obviously unable to take care of himself, and his parents in spite of best efforts are not able to take care of him either. At this point, he agrees to at least a short-term personal care facility, but likely should be in a long-term nursing care facility. Continue all medications as before. ESRD on HD- Consult nephrology. Dialysis on Thursday, Thursday and Thursday. Hypertension/volatility- Unsure if patient is actually compliant with his medication regimen. Continue losartan, carvedilol and amlodipine. Diabetes mellitus/volatility- Doubtful the patient is compliant with his diet with her out of hospital or in hospital. Placed on Accu-Cheks with NovoLog coverage. Remainder of orders and notations as noted. PG Care Time/CCT Total # of Minutes Spent Total Time Spent with Patient: Total time spent is greater than 50% in coordination of care (as documented) at patient's floor/unit and/or counseling patient: Resident Activity Tracking Resident Involvement: Resident Care Provided Care Provided: Adult Hospital Medicine (1) Hypertension Hypertension type: unspecified Qualified Code(s): I10 - Essential (primary) hypertension (2) Vomiting Nausea presence: with nausea Vomiting Intractability: intractable Vomiting type: unspecified Qualified Code(s): R11.2 - Nausea with vomiting, unspecified
[2019-03-28] MEDS ORDERED: DiphenhydrAMINE HCL 50 MG/ML VIAL IV PRN (01:07)
[2019-03-28] MEDS ORDERED: HydrALAZINE HCL 20 MG/ML VIAL IV PRN (01:07)
[2019-03-28] MEDS ORDERED: ACETAMINOPHEN 325 MG TAB PO PRN (01:07)
[2019-03-28] MEDS ORDERED: PHARMACY GLYCEMIC MGMT CONSULT PRN (01:17)
[2019-03-28] MEDS ORDERED: CALCIUM ACETATE 667 MG CAP PO PRN (01:18)
[2019-03-28] MEDS ORDERED: GLUCOSE 10 TABS/TUBE PO PRN (05:30)
[2019-03-28] MEDS ORDERED: CARBOHYDRATES FOR HYPOGLYCEMIA PO PRN (05:30)
[2019-03-28] MEDS ORDERED: DEXTROSE 50% 50 ML SYRINGE IV PRN (05:30)
[2019-03-28] MEDS ORDERED: GLUCAGON FOR INJ 1 MG VIAL SQ PRN (05:30)
[2019-03-28] MEDS ORDERED: GLUCOSE 40% GEL 15 GM TUBE PO PRN (05:30)
[2019-03-28] MEDS: ONDANSETRON INJ 2 MG/ML 2 ML VIAL IV PRN ×2 (06:20→11:26)
[2019-03-28] MEDS: INSULIN HUMAN REGULAR SC SCH ×8 (06:21→21:23)
--- NOTE | 2019-03-28 08:38 | Nephrology Consultation ---
Date of Consultation March 28, 2019 Assessment & Plan (1) ESRD on dialysis: HD today via [facility]; 4hr tx, 2K bath, miniheparin; goal 1.5L fluid off -no epo indicated -cont binders ac Present on Admission?: Yes (2) Hypertension: acceptable control at this time; labile and challenging to control at baseline; cont current meds/ HD; control depression and GI sx Present on Admission?: Yes History of Present Illness Reason for Consultation: ESRD on HD Requesting Physician: Dr Mckay Attending Physician: Tessa Mckay MD History of Present Illness 48 y/o M whom I'm asked to see for dialysis needs after he was admitted here yesterday w/ intractable N/V and uncontrolled HTN. PMH includes brittle diabetes, severe gastroparesis w/ chronic N/V, significant anxiety/depression, HTN, chronic systolic heart failure, R hip fracture february 2019, s/p ORIF. SBP was 190-220 systolic on presentation today for about 2 hrs >> brought down to 150s w/in 4 hrs; in 130s this am. He dialyzes under my care MWF at [facility], though he has been in and out of hospitals and acute rehab for much of the past several months. He had some dry heaves and emesis earlier today but these had resolved by the time I evaluated him. He had uneventful kimberly lysis today at my order. Allergies Allergy/AdvReac Type Severity Reaction Status Date / Time shellfish derived Allergy Severe anaphylaxis Verified 03/27/19 20:59 codeine Allergy Intermediate Hives Verified 03/27/19 20:59 promethazine Allergy Intermediate itchy/hives Verified 03/27/19 20:59 Home Medications Home Medications Medication Instructions Recorded Confirmed Type Chris Caps 1 cap PO QAM 12/19/18 03/27/19 History calcium acetate 667 mg PO TIDM MDD 7 CAPSULES/DAY 12/19/18 03/27/19 History atorvastatin 10 mg tablet 10 mg PO QAM tab 01/06/19 03/27/19 History ondansetron HCl 4 mg tablet 4 mg PO QID PRN 01/12/19 03/27/19 History aprepitant 80 mg PO UD PRN 01/31/19 03/27/19 History bupropion HCl 100 mg PO QAM 01/31/19 03/27/19 History insulin lispro [Admelog SoloStar See Rx Instructions SUBCUT DAILY 01/31/19 03/27/19 History U-100 Insulin] PRN acetaminophen 325 mg tablet 650 mg PO UD PRN tab 03/10/19 03/27/19 History famotidine 20 mg tablet 20 mg PO QAM tab 03/10/19 03/27/19 History metoclopramide 5 mg tablet 5 mg PO Q6H tab 03/10/19 03/27/19 History amlodipine 10 mg PO QAM 03/21/19 03/27/19 History cholecalciferol (vitamin D3) 2,000 unit PO QAM 03/21/19 03/27/19 History lorazepam 0.5 mg SUBLINGUAL Q6H PRN 03/21/19 03/27/19 History sertraline 100 mg PO QAM 03/21/19 03/27/19 History insulin glargine (U-100) 100 18 units SQ DAILY@0930 #30 ml 03/23/19 03/27/19 Rx unit/mL (3 mL) subcutaneous pen triamcinolone acetonide 1 applic TOPICAL TID 03/23/19 03/27/19 History carvedilol 12.5 mg PO BID #60 tab 03/26/19 03/27/19 Rx losartan 25 mg PO QAM #30 tab 03/26/19 03/27/19 Rx Patient History Medical History DM (diabetes mellitus) CAD (coronary artery disease) mild, non-obstructive CAD per 10/2018 cardiac cath ESRD (end stage renal disease) Hemodialysis M,W,F (Follows with Dr. Taylor Higgins; [facility]). Kidney stones Peripheral neuropathy Retinopathy due to secondary diabetes Surgical History H/O shoulder surgery RIGHT History of appendectomy History of cardiac cath 10/2018= no stents, no obstructive disease (at [facility]) History of hip surgery LEFT HIP ARTHROSCOPY History of lithotripsy Permanent central venous catheter in place Permacath Family History Grandfather Myocardial infarction Grandfather (Maternal) Family history of diabetes mellitus Uncle Myocardial infarction Social History Preferred Language: Nepali Communication Ability: Effective Visual Impairment: No Limitations Hearing Ability: Normal 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 Department Required: No Beliefs That Will Affect Care: None marital status: Current Living Situation: Family current occupational status: unemployed Feels Safe at Home: Yes Safety Concerns: Feels Safe At This Time Smoking Status: Never smoker Tobacco Type: smokeless tobacco ; Second Hand Exposure: No ; Hx Alcohol Use: No Hx Substance Use: No Childhood Exposure to Second-Hand Smoke: Yes Dental Care, Regularly: No Physical Activity Frequency: 1-2 Times per Week Seatbelt Use: always Sunscreen Use: No Review of Systems Review of Systems: All systems reviewed & are unremarkable except as noted in HPI & below Constitutional: + fatigue, + weakness, + anorexia and + weight loss Eyes: no worsening vision Ear, Nose, Mouth, Throat: no dry mouth Respiratory: no cough and no dyspnea Cardiovascular: no chest pain, no palpitations and no edema Gastrointestinal: as per Subjective / HPI, + abdominal pain, + early satiety, + nausea and + vomiting; no diarrhea/loose stools Genitourinary: + problem reported (no change to chronic voiding habits) Musculoskeletal: + muscle weakness Integumentary: no rash and no non-healing lesions Neurologic: + generalized weakness Psychiatric: + depression and + anxiety Endocrine: + fatigue Hematologic / Lymphatic: no easy bleeding Physical Exam Constitutional: well developed, + cachectic, + frail appearing and cooperative on RA A& 0 x 3 Eyes: EOM intact bilaterally ENMT: Ears: no external ear abnormality Nose: no external nose abnormality Mouth: + dry oral mucous membranes Neck: no nuchal rigidity Respiratory: normal respiratory effort Auscultation: + diminished lung sounds Cardiovascular: RRR, no murmur, no edema Extremities: + AV fistula (w/o (sic) t/b) Gastrointestinal (Abdomen): Inspection/Auscultation: normal bowel sounds Percussion/Palpation: abdomen soft; abdomen nontender Musculoskeletal: Extremities: strength 5/5 throughout Skin: no rashes, warm and dry Neurologic: spicer, fluent speech, no tremor Psychiatric: A+Ox3, euthymic affect Speech: normal rate/rhythm/volume of speech Results & Data Vital Signs (Past 12 Hours) Vital Signs Temp Pulse Pulse Pulse Resp BP BP 03/28/19 07:34 36.6 C 81 20 135/79 03/28/19 04:25 36.6 C 86 18 173/85 H 03/28/19 02:20 36.4 C L 81 16 161/80 H 03/28/19 00:15 82 14 166/95 H 03/28/19 00:00 83 176/98 H 03/27/19 23:45 82 156/94 H 03/27/19 23:30 81 167/93 H 03/27/19 23:15 81 16 163/93 H 03/27/19 23:00 80 160/95 H 03/27/19 22:45 78 12 157/91 H 03/27/19 22:30 78 179/103 H 03/27/19 22:15 77 14 192/108 H 03/27/19 22:00 79 12 205/113 H 03/27/19 21:45 77 204/114 H 03/27/19 21:39 91 H 16 222/123 H 03/27/19 21:35 91 H 222/123 H 03/27/19 21:21 Pulse Ox 03/28/19 07:34 96 03/28/19 04:25 98 03/28/19 02:20 96 03/28/19 00:15 96 03/28/19 00:00 97 03/27/19 23:45 98 03/27/19 23:30 97 03/27/19 23:15 97 03/27/19 23:00 97 03/27/19 22:45 98 03/27/19 22:30 98 03/27/19 22:15 98 03/27/19 22:00 100 03/27/19 21:45 99 03/27/19 21:39 100 03/27/19 21:35 100 03/27/19 21:21 100 Laboratory Results 03/27/19 21:20 03/27/19 21:[address] no acute i-c abnormality Abd/chest XR 1. No acute cardiopulmonary disease. 2. Findings suggest small bowel wall thickening, which could indicate enteritis. 3. No bowel obstruction. (1) Hypertension Hypertension type: unspecified Qualified Code(s): I10 - Essential (primary) hypertension
[2019-03-28] MEDS ORDERED: SODIUM CHLORIDE 0.9% 1000ML 1,000 ML IV PRN (08:42)
[2019-03-28] MEDS ORDERED: HEPARIN SOD (PORCINE) 1000 UNIT/ML 10 ML VIAL IV ONE (08:42)
[2019-03-28] MEDS: FAMOTIDINE 20 MG TAB PO SCH (08:51)
[2019-03-28] MEDS: SERTRALINE HCL 100 MG TABLET PO SCH (08:51)
[2019-03-28] MEDS: carvediloL 12.5 MG TAB PO SCH ×2 (08:51→21:25)
[2019-03-28] MEDS: CALCIUM ACETATE 667 MG CAP PO SCH ×3 (08:51→17:36)
[2019-03-28] MEDS: BuPROPion SR 100 MG TABCR PO SCH (08:52)
[2019-03-28] MEDS: ATORVASTATIN 10 MG TAB PO SCH (08:52)
[2019-03-28] MEDS: NEPHROCAPS PO SCH (08:52)
--- NOTE | 2019-03-28 11:19 | Family Medicine Progress Note ---
Date of Service March 28, 2019 Assessment & Plan (1) Intractable nausea and vomitin-year-old male past medical history of type 1 diabetes, end-stage renal disease on dialysis, gastroparesis, hypertension, depression presents with elevated blood pressure and intractable vomiting. Admitted for observation and symptom control while awaiting placement for personal care facility. Intractable nausea/vomiting the setting of gastroparesis Providing antiemetics, had received IV Compazine and Zofran while in the ED as well. -Zofran 4mg IV PRN nausea -Currently clear liquid diet, will advance as tolerated. Mild leukocytosis, likely secondary to demargination. -WBC 13.29 on initial presentation. -Will monitor with AM labs Hypertensive urgency, hypertension Continue losartan, carvedilol, amlodipine Hydralazine as needed for pressures above 180/110 -Current BP 135/99 - patient denying any headaches or visual changes. Type I diabetic, end-stage renal disease on dialysis Glycemic consult, continue insulin Nephrology consult placed - Patient received dialysis today. -Patient runs on a MWF dialysis schedule - next dialysis on 03/30/19. Depression/anxiety Continue Wellbutrin, sertraline, lorazepam DVT prophylaxisambulate, SCDs FENclear liquid diet CODE STATUSfull Dispo - Med/Surg w/ Tele. Admitted for observation prior to placementpatient agrees to outpatient short-term personal care facility. -Case Management spoke with [facility] -- bed available and willing to take patient once he has his dialysis completed and is medically stable. (2) Vomiting: (3) Hypertension: (4) Failure of outpatient treatment: (5) Acute hyponatremia: (6) ESRD on dialysis: (7) ESRD (end stage renal disease): (8) Depression: (9) Uncontrolled hypertension: (10) DM (diabetes mellitus): Supervising Physician Co-Signing Physician Notes Resident Physician Supervision Note: I independently interviewed and examined the patient and verified the julien history and physical, reviewed labs and image studies, discussed the case with the resident Dr. Mckinley and agree with the findings and care plan. Subjective Patient seen and examined at the bedside this AM. He was sleeping and had to be gently aroused. He awoke without distress and was able to answer questions appropriately this AM. He notes that other than feeling slightly tired, he has no other complaints at this time. He denies any vomiting since arrival, denies nausea, and denies abdominal pain currently. His only note is that he is feeling tired currently and that he requires dialysis today as he is scheduled for MWF dialysis. Review of Systems Constitutional: no fever, no chills, no body aches, no fatigue and no weakness Eyes: no photophobia and no worsening vision Ear, Nose, Mouth, Throat: no ear pain and no hearing loss Respiratory: no cough, no dyspnea, no pain on inspiration and no wheezing Cardiovascular: no chest pain, no dyspnea and no palpitations Gastrointestinal: no abdominal pain, no vomiting, no constipation, no diarrhea/loose stools and no melena Genitourinary: no dysuria Neurologic: no dizziness and no headache(s) Physical Exam Constitutional: well developed; no acute distress Eyes: normal visual garcia by confrontation and + anicteric sclerae ENMT: Ears: no hearing impairment and no external ear abnormality Nose: no external nose abnormality Mouth: no lip abnormality Respiratory: normal respiratory effort, lungs clear to auscultation Cardiovascular: RRR, no murmur, no edema Gastrointestinal (Abdomen): Inspection/Auscultation: abdomen normal to inspection and normal bowel sounds Percussion/Palpation: abdomen soft; abdomen nontender and no guarding Results & Data Vital Signs (Past 12 Hours) Vital Signs Temp Pulse Pulse Pulse Resp BP BP 03/28/19 08:00 86 03/28/19 07:34 36.6 C 81 20 135/79 03/28/19 04:25 36.6 C 86 18 173/85 H 03/28/19 02:20 36.4 C L 81 16 161/80 H 03/28/19 00:15 82 14 166/95 H 03/28/19 00:00 83 176/98 H 03/27/19 23:45 82 156/94 H 03/27/19 23:30 81 167/93 H Pulse Ox 03/28/19 08:00 03/28/19 07:34 96 03/28/19 04:25 98 03/28/19 02:20 96 03/28/19 00:15 96 03/28/19 00:00 97 03/27/19 23:45 98 03/27/19 23:30 97 Laboratory Results Abnormal lab results 03/27/19 03/27/19 03/28/19 Range/Units 21:20 21:20 00:45 WBC 13.29 H (4.8-10.8) K/uL RBC 4.59 L (4.7-6.1) M/uL MCV 101.3 H (80-100) fL Sodium 131 L (136-145) mmol/L Carbon Dioxide 16 L (21-32) mmol/L Anion Gap 18.0 H (3-11) BUN 76 H D (7-18) mg/dl Creatinine 6.52 H* D (0.6-1.4) mg/dl Glucose 110 H (70-99) mg/dl POC Glucose 137 H (70-99) AST 13 L (15-37) U/L Alkaline Phosphatase 153 H (45-117) U/L 03/28/19 03/28/19 Range/Units 05:59 07:46 WBC (4.8-10.8) K/uL RBC (4.7-6.1) M/uL MCV (80-100) fL Sodium (136-145) mmol/L Carbon Dioxide (21-32) mmol/L Anion Gap (3-11) BUN (7-18) mg/dl Creatinine (0.6-1.4) mg/dl Glucose (70-99) mg/dl POC Glucose 211 H 177 H (70-99) AST (15-37) U/L Alkaline Phosphatase (45-117) U/L Medications Administered Current Inpatient Medications Acetaminophen (Tylenol) 650 mg PO Q4H PRN PRN Reason: fever or pain Stop: 04/27/19 01:06 Amlodipine Besylate (Norvasc) 10 mg PO QAM [facility] Stop: 04/27/19 08:59 Atorvastatin Calcium (Lipitor) 10 mg PO QAM JACKI Stop: 04/27/19 08:59 Last Admin: 03/28/19 08:52 Dose: 10 mg Documented by: Bupropion HCl (Wellbutrin-Sr) 100 mg PO QAM JACKI Stop: 04/27/19 08:59 Last Admin: 03/28/19 08:52 Dose: 100 mg Documented by: Calcium Acetate (Phoslo) 667 mg PO TIDM JACKI Stop: 04/27/19 07:59 Last Admin: 03/28/19 08:51 Dose: 667 mg Documented by: Calcium Acetate (Phoslo) 667 mg PO TIDM PRN PRN Reason: .SNACKS Stop: 04/27/19 01:17 Carvedilol (Coreg) 12.5 mg PO BID JACKI Stop: 04/27/19 08:59 Last Admin: 03/28/19 08:51 Dose: 12.5 mg Documented by: Dextrose (Dextrose 50%) 25 - 50 ml IV UD PRN; Protocol PRN Reason: Hypoglycemia Protocol Stop: 04/27/19 05:29 Diphenhydramine HCl (Benadryl) 12.5 mg IV Q4H PRN PRN Reason: Nausea Stop: 04/27/19 01:06 Famotidine (Pepcid) 20 mg PO QAM JACKI Stop: 04/27/19 08:59 Last Admin: 03/28/19 08:51 Dose: 20 mg Documented by: Glucagon (Glucagen) 1 mg SQ UD PRN; Protocol PRN Reason: Hypoglycemia Protocol Stop: 04/27/19 05:29 Glucose (Glucose 40%) 15 - 30 gm PO UD PRN; Protocol PRN Reason: Hypoglycemia Protocol Stop: 04/27/19 05:29 Glucose (Dex4 Glucose) 4 - 8 tabs PO UD PRN; Protocol PRN Reason: Hypoglycemia Protocol Stop: 04/27/19 05:29 Hydralazine HCl (Hydralazine Hcl) 5 mg IV Q4H PRN PRN Reason: Hypertension Stop: 04/27/19 01:06 Sodium Chloride (Nss 1000ml) 1,000 mls @ 0 mls/hr IV .Q0M PRN PRN Reason: For Hemodialysis Use ONLY Stop: 03/28/19 14:41 Insulin Human Regular (Novolin R) 0 units SC Q6 JACKI; Protocol Stop: 04/27/19 05:59 Last Admin: 03/28/19 06:21 Dose: 2 units Documented by: Insulin Human Regular (Novolin R) 0 units SC Q6 JACKI; Protocol Stop: 04/27/19 05:59 Last Admin: 03/28/19 06:22 Dose: 4 units Documented by: Lorazepam (Ativan) 0.5 mg SL Q6H PRN PRN Reason: Anxiety Stop: 04/27/19 01:06 Losartan Potassium (Cozaar) 25 mg PO QAM JACKI Stop: 04/27/19 08:59 Miscellaneous (Carbohydrates For Hypoglycemia) 15 - 30 gm PO UD PRN PRN Reason: Hypoglycemia Treatment Stop: 04/27/19 05:29 Miscellaneous Information (Consult Glycemic Management Pharmacy) 1 ea N/A UD PRN PRN Reason: Consult Stop: 04/27/19 01:16 Ondansetron HCl (Zofran) 4 mg IV Q6H PRN PRN Reason: Nausea Stop: 04/27/19 01:06 Last Admin: 03/28/19 11:26 Dose: 4 mg Documented by: Sertraline HCl (Zoloft) 100 mg PO QAM JACKI Stop: 04/27/19 08:59 Last Admin: 03/28/19 08:51 Dose: 100 mg Documented by: Vitamin B Complex/Folic Acid (Nephrocaps) 1 cap PO QAM JACKI Stop: 04/27/19 08:59 Last Admin: 03/28/19 08:52 Dose: 1 cap Documented by: PG Care Time/CCT Total # of Minutes Spent Total Time Spent with Patient: Total time spent is greater than 50% in coordination of care (as documented) at patient's floor/unit and/or counseling patient: Resident Activity Tracking Resident Involvement: Resident Care Provided Care Provided: Adult Hospital Medicine (1) Hypertension Hypertension type: unspecified Qualified Code(s): I10 - Essential (primary) hypertension (2) Vomiting Nausea presence: with nausea Vomiting Intractability: intractable Vomiting type: unspecified Qualified Code(s): R11.2 - Nausea with vomiting, unspecified
[2019-03-28] MEDS: HEPARIN SOD (PORCINE) 1000 UNIT/ML 10 ML VIAL IV SCH ×3 (12:10→14:10)
[2019-03-28] MEDS: LOSARTAN POTASSIUM 25 MG TAB PO SCH (15:43)
[2019-03-28] MEDS: AMLODIPINE BESYLATE 5 MG TAB PO SCH (15:43)
--- NOTE | 2019-03-28 16:27 | Pharmacy Report ---
Pharmacy Glycemic Short Note 2 - Date of Service March 28, 2019 - Glycemic Short BSG Results (Last 24 hours): 03/27/19 03/28/19 03/28/19 21:20 00:45 05:59 Glucose 110 H POC Glucose 137 H 211 H 03/28/19 07:46 Glucose POC Glucose 177 H OUTPATIENT ANTIDIABETIC REGIMEN: * Basaglar 18 units daily * Humalog using CR 1:10 + SS * A1c unreliable d/t ESRD ASSESSMENT: * Mr De Los Santos is a 48 y/o male with T1DM well known to the pharmacy glycemic service from past admissions. * Pt is admitted 1 day after previous discharge for hypertensive urgency and intractable nausea/vomiting in the setting of gastroparesis. * During previous admissions, we have switched him to Regular insulin q6h to serve as basal/prandial/correctional due to his sporadic eating habits and severe gastroparesis. This has traditionally worked well so will continue to trial. * Patient was in dialysis today, so 1200 dose of regular insulin was omitted. Will adjust the remaining doses this evening to avoid missing the dose altogether. PLAN FOR INPATIENT GLYCEMIC CONTROL: * Basal/prandial insulin - no change * Novolin R q6h per the following scale: * 2 unit for BSG < 110 * 3 units for BSG 110-150 * 4 units for BSG > 150 * Correctional insulin - no change * Novolin R per scale q6h, to coincide with basal dosing * Goal Range: Low 110 mg/dL - High 150 mg/dL * Correction Factor: 30 mg/dL/unit Discharge Recommendations: * A1c is unreliable d/t ESRD * Per reports of outpatient control, he has been well controlled. Recommend to continue same regimen on discharge.
[2019-03-29] MEDS: INSULIN HUMAN REGULAR SC SCH ×6 (06:14→17:50)
[2019-03-29 07:23] LABS: Basophils # (auto) 0.05 K/uL (0-0.2); Basophils % (auto) 0.6 %; Eosinophils # (auto) 0.11 K/uL (0-0.5); Eosinophils % (auto) 1.3 %; Hematocrit (blood only) 36.3 % (42-52); Hemoglobin 11.8 g/dL (14.0-18.0); Immature Granulocytes # (auto) 0.04 K/uL (0.00-0.02); Immature Granulocytes % (auto) 0.5 %; Lymphocytes # (auto) 1.23 K/uL (1.2-3.4); Lymphocytes % (auto) 14.2 %; Mean Corpuscular Hemoglobin 33.8 pg (25-34); Mean Corpuscular Hgb Conc 32.5 g/dL (32-36); Mean Platelet Volume 9.6 fL (7.4-10.4); Monocytes # (auto) 1.23 K/uL (0.11-0.59); Monocytes % (auto) 14.2 %; Neutrophils # (auto) 5.98 K/uL (1.4-6.5); Neutrophils % (auto) 69.2 %; Platelet Count 222 K/uL (130-400); RDW Coefficient of Variation 16.2 % (11.5-14.5); Red Blood Count 3.49 M/uL (4.7-6.1); White Blood Count 8.64 K/uL (4.8-10.8)
[2019-03-29] MEDS ORDERED: INSULIN HUMAN REGULAR PER UNIT 5 UNITS in SYRINGE 4.95 ML IV ONE (07:30)
[2019-03-29] MEDS: CALCIUM ACETATE 667 MG CAP PO SCH ×3 (07:56→16:41)
[2019-03-29] MEDS: LOSARTAN POTASSIUM 25 MG TAB PO SCH (07:57)
[2019-03-29] MEDS: carvediloL 12.5 MG TAB PO SCH ×2 (07:57→20:58)
[2019-03-29] MEDS: NEPHROCAPS PO SCH (07:58)
[2019-03-29] MEDS: AMLODIPINE BESYLATE 5 MG TAB PO SCH (07:58)
[2019-03-29] MEDS: ATORVASTATIN 10 MG TAB PO SCH (07:58)
[2019-03-29] MEDS: BuPROPion SR 100 MG TABCR PO SCH (07:59)
[2019-03-29] MEDS: SERTRALINE HCL 100 MG TABLET PO SCH (07:59)
[2019-03-29] MEDS: FAMOTIDINE 20 MG TAB PO SCH (07:59)
[2019-03-29 08:00] LABS: BUN Creatinine Ratio 9.4 (10-20); Calcium 7.9 mg/dl (8.5-10.1); Est GFR (African American) 16.9; Est GFR (Non-African American) 14.6; Potassium 3.9 mmol/L (3.5-5.1)
[2019-03-29 08:11] LABS: Beta-Hydroxybutyrate 5.41 mg/dl (0.2-2.81)
[2019-03-29] MEDS: ONDANSETRON INJ 2 MG/ML 2 ML VIAL IV PRN ×2 (08:25→15:14)
[2019-03-29] MEDS ORDERED: LOSARTAN POTASSIUM 25 MG TAB PO SCH (09:00)
[2019-03-29] MEDS ORDERED: Nursing to Pharmacy Communication ONE (09:50)
[2019-03-29] MEDS ORDERED: LOSARTAN POTASSIUM 25 MG TAB PO STA (10:00)
[2019-03-29] MEDS ORDERED: PROCHLORPERAZINE 10 MG in SYRINGE 8 ML IV ONE (10:30)
[2019-03-29] MEDS: LORazepam 0.5 MG TAB SL PRN ×2 (11:29→12:57)
[2019-03-29] MEDS ORDERED: LORazepam 1 MG TAB SL STA (11:58)
--- NOTE | 2019-03-29 12:32 | Family Medicine Progress Note ---
Date of Service March 29, 2019 Assessment & Plan (1) Intractable nausea and vomitin-year-old male past medical history of type 1 diabetes, end-stage renal disease on dialysis, gastroparesis, hypertension, depression presents with elevated blood pressure and intractable vomiting. Admitted for observation and symptom control while awaiting placement for personal care facility. Intractable nausea/vomiting the setting of gastroparesis Providing antiemetics, had received IV Compazine and Zofran while in the ED as well. -Zofran 4mg IV PRN nausea -Received 1 dose of 10mg Compazine today, noted minimal improvement of his nausea. -Patient was advanced to full diet for dinner the previous night to which he did well, but return to NPO currently 2/2 intractable nausea/vomiting. -Will put patient on gentle hydration at NSS 80ml/hr due to NPO status and m onitor for overload due to ESRD requiring Dialysis. Mild leukocytosis, likely secondary to demargination appears to have resolved. -WBC 13.29 on initial presentation - currently 8.64 -Question whether or not there may be some psycho-social component to patient's symptoms. He was given 0.5mg Ativan SL on top of his 0.5mg Ativan PRN. Noted minimal decrease in his symptoms. -Patient does have an EGD from 11/02/18 which showed Esophageal Candidiasis and a Normal Stomach and Duodenum. Hypertensive urgency, hypertension Continue losartan, carvedilol, amlodipine Hydralazine as needed for pressures above 180/110 -Current BP 149/89 - patient denying any headaches or visual changes. Type I diabetic, end-stage renal disease on dialysis Glycemic consult, continue insulin Nephrology consult placed -Patient runs on a MWF dialysis schedule - next dialysis tomorrow 03/30/19. Depression/anxiety Continue Wellbutrin, sertraline, lorazepam DVT prophylaxisambulate, SCDs FENNPO, NSS 80ml/hr CODE STATUSfull Dispo - Med/Surg w/ Tele. -Patient was accepted to [facility] today pending medical clearance, however, at this time it was decided he would not leave today due to his symptoms. Will strive for better nausea control prior to d/c. (2) Vomiting: (3) Hypertension: (4) Failure of outpatient treatment: (5) Acute hyponatremia: (6) ESRD on dialysis: (7) ESRD (end stage renal disease): (8) Depression: (9) Uncontrolled hypertension: (10) DM (diabetes mellitus): Supervising Physician Co-Signing Physician Notes Resident Physician Supervision Note: I independently interviewed and examined the patient and verified the julien history and physical, reviewed labs and image studies, discussed the case with the resident Dr. Mckinley and agree with the findings and care plan. Subjective Patient seen and evaluated at the bedside this AM. He did note that he was having significant nausea with vomiting and retching that began this morning and has not subsided with Zofran. He currently requests Compazine as that has helped him in the past with his nausea. He notes that he is not having any abdominal pain or discomfort, and that his symptoms are primarily only the nausea. He denies having any symptoms during dinner yesterday or overnight. Review of Systems Constitutional: no fever, no chills and no weakness Eyes: no photophobia and no worsening vision Ear, Nose, Mouth, Throat: no dizziness Respiratory: no cough, no chest congestion, no dyspnea, no hemoptysis, no pain on inspiration and no wheezing Cardiovascular: no chest pain, no dyspnea, no palpitations and no edema Gastrointestinal: + nausea and + vomiting; no abdominal pain, no hematemesis, no constipation and no diarrhea/loose stools Genitourinary: no dysuria, no urinary frequency and no flank pain Physical Exam Constitutional: well developed and + in distress (mild distress 2/2 nausea and vomiting) Eyes: normal visual garcia by confrontation and + anicteric sclerae ENMT: Ears: no hearing impairment and no external ear abnormality Nose: no external nose abnormality Mouth: no lip abnormality Respiratory: normal respiratory effort, lungs clear to auscultation Cardiovascular: RRR, no murmur, no edema Gastrointestinal (Abdomen): Inspection/Auscultation: abdomen normal to inspection and normal bowel sounds Percussion/Palpation: abdomen soft; abdomen nontender and no guarding Psychiatric: Orientation: alert and oriented x 3 Eye Contact: + fair eye contact Affect: + flat affect Genitourinary: no CVA tenderness Results & Data Vital Signs (Past 12 Hours) Vital Signs Temp Pulse Pulse Resp BP Pulse Ox 03/29/19 11:00 36.4 C L 82 16 186/98 H 99 03/29/19 10:03 162/85 H 10/22/19 08:00 83 03/29/19 07:00 36.6 C 90 18 160/87 H 96 03/29/19 04:00 36.8 C 89 18 158/89 H 95 Laboratory Results Abnormal lab results 03/28/19 03/28/19 03/29/19 Range/Units 16:09 19:55 05:54 RBC (4.7-6.1) M/uL Hgb (14.0-18.0) g/dL Hct (42-52) % MCV (80-100) fL RDW Std Deviation (36.4-46.3) fL RDW Coeff of Kami (11.5-14.5) % Immature Gran # (Auto) (0.00-0.02) K/uL [place] # (Auto) (0.11-0.59) K/uL Sodium (136-145) mmol/L BUN (7-18) mg/dl Creatinine (0.6-1.4) mg/dl BUN/Creatinine Ratio (10-20) Glucose (70-99) mg/dl POC Glucose 107 H 171 H 410 H* (70-99) Calcium (8.5-10.1) mg/dl Beta-Hydroxybutyric Acd (0.2-2.81) mg/dl 03/29/19 03/29/19 03/29/19 Range/Units 05:55 06:37 06:37 RBC 3.49 L (4.7-6.1) M/uL Hgb 11.8 L D (14.0-18.0) g/dL Hct 36.3 L (42-52) % MCV 104.0 H (80-100) fL RDW Std Deviation 62.0 H (36.4-46.3) fL RDW Coeff of Kami 16.2 H (11.5-14.5) % Immature Gran # (Auto) 0.04 H (0.00-0.02) K/uL [place] # (Auto) 1.23 H (0.11-0.59) K/uL Sodium 132 L (136-145) mmol/L BUN 42 H (7-18) mg/dl Creatinine 4.45 H D (0.6-1.4) mg/dl BUN/Creatinine Ratio 9.4 L (10-20) Glucose 433 H* (70-99) mg/dl POC Glucose 432 H* (70-99) Calcium 7.9 L (8.5-10.1) mg/dl Beta-Hydroxybutyric Acd 5.41 H (0.2-2.81) mg/dl 03/29/19 03/29/19 03/29/19 Range/Units 07:18 07:26 09:55 RBC (4.7-6.1) M/uL Hgb (14.0-18.0) g/dL Hct (42-52) % MCV (80-100) fL RDW Std Deviation (36.4-46.3) fL RDW Coeff of Kami (11.5-14.5) % Immature Gran # (Auto) (0.00-0.02) K/uL [place] # (Auto) (0.11-0.59) K/uL Sodium (136-145) mmol/L BUN (7-18) mg/dl Creatinine (0.6-1.4) mg/dl BUN/Creatinine Ratio (10-20) Glucose (70-99) mg/dl POC Glucose 358 H* 367 H* 170 H (70-99) Calcium (8.5-10.1) mg/dl Beta-Hydroxybutyric Acd (0.2-2.81) mg/dl 03/29/19 Range/Units 11:04 RBC (4.7-6.1) M/uL Hgb (14.0-18.0) g/dL Hct (42-52) % MCV (80-100) fL RDW Std Deviation (36.4-46.3) fL RDW Coeff of Kami (11.5-14.5) % Immature Gran # (Auto) (0.00-0.02) K/uL [place] # (Auto) (0.11-0.59) K/uL Sodium (136-145) mmol/L BUN (7-18) mg/dl Creatinine (0.6-1.4) mg/dl BUN/Creatinine Ratio (10-20) Glucose (70-99) mg/dl POC Glucose 132 H (70-99) Calcium (8.5-10.1) mg/dl Beta-Hydroxybutyric Acd (0.2-2.81) mg/dl Medications Administered Current Inpatient Medications Acetaminophen (Tylenol) 650 mg PO Q4H PRN PRN Reason: fever or pain Stop: 04/27/19 01:06 Amlodipine Besylate ([facility]asc) [facility] Stop: 04/27/19 08:59 Last Admin: 03/29/19 07:58 Dose: 10 mg Documented by: Atorvastatin Calcium (Lipitor) 10 mg PO QAM [facility] Stop: 04/27/19 08:59 Last Admin: 03/29/19 07:58 Dose: 10 mg Documented by: Bupropion HCl (Wellbutrin-Sr) 100 mg [facility] Stop: 04/27/19 08:59 Last Admin: 03/29/19 07:59 Dose: 100 mg Documented by: Calcium Acetate (Phoslo) 667 mg PO TIDM [facility] Stop: 04/27/19 07:59 Last Admin: 03/29/19 11:21 Dose: Not Given Documented by: Calcium Acetate (Phoslo) 667 mg PO TIDM PRN PRN Reason: .SNACKS Stop: 04/27/19 01:17 Carvedilol (Coreg) 12.5 mg PO BID [facility] Stop: 04/27/19 08:59 Last Admin: 03/29/19 07:57 Dose: 12.5 mg Documented by: Dextrose (Dextrose 50%) 25 - 50 ml IV UD PRN; Protocol PRN Reason: Hypoglycemia Protocol Stop: 04/27/19 05:29 Diphenhydramine HCl (Benadryl) 12.5 mg IV Q4H PRN PRN Reason: Nausea Stop: 04/27/19 01:06 Famotidine (Pepcid) 20 mg PO [facility] Stop: 04/27/19 08:59 Last Admin: 03/29/19 07:59 Dose: 20 mg Documented by: Glucagon (Glucagen) 1 mg SQ UD PRN; Protocol PRN Reason: Hypoglycemia Protocol Stop: 04/27/19 05:29 Glucose (Glucose 40%) 15 - 30 gm PO UD PRN; Protocol PRN Reason: Hypoglycemia Protocol Stop: 04/27/19 05:29 Glucose (Dex4 Glucose) 4 - 8 tabs PO UD PRN; Protocol PRN Reason: Hypoglycemia Protocol Stop: 04/27/19 05:29 Hydralazine HCl (Hydralazine Hcl) 5 mg IV Q4H PRN PRN Reason: Hypertension Stop: 04/27/19 01:06 Last Admin: 03/29/19 11:23 Dose: 5 mg Documented by: Insulin Human Regular (Novolin R) 0 units SC Q6 [facility]; Protocol Stop: 04/27/19 05:59 Last Admin: 03/29/19 12:01 Dose: Not Given Documented by: Insulin Human Regular (Novolin R) 0 units SC Q6 [facility]; Protocol Stop: 04/27/19 05:59 Last Admin: 03/29/19 12:01 Dose: 3 units Documented by: Lorazepam (Ativan) 0.5 mg SL Q6H PRN PRN Reason: Anxiety Stop: 04/27/19 01:06 Last Admin: 03/29/19 12:57 Dose: 0.5 mg Documented by: Losartan Potassium (Cozaar) 50 mg [facility] Stop: 04/29/19 08:59 Miscellaneous (Carbohydrates For Hypoglycemia) 15 - 30 gm PO UD PRN PRN Reason: Hypoglycemia Treatment Stop: 04/27/19 05:29 Miscellaneous Information (Consult Glycemic Management Pharmacy) 1 ea N/A UD P RN PRN Reason: Consult Stop: 04/27/19 01:16 Ondansetron HCl (Zofran) 4 mg IV Q6H PRN PRN Reason: Nausea Stop: 04/27/19 01:06 Last Admin: 03/29/19 15:14 Dose: 4 mg Documented by: Sertraline HCl (Zoloft) 100 [facility] Stop: 04/27/19 08:59 Last Admin: 03/29/19 07:59 Dose: 100 mg Documented by: Vitamin B Complex/Folic Acid (Nephrocaps) 1 cap [facility] Stop: 04/27/19 08:59 Last Admin: 03/29/19 07:58 Dose: 1 cap Documented by: PG Care Time/CCT Total # of Minutes Spent Total Time Spent with Patient: Total time spent is greater than 50% in coordination of care (as documented) at patient's floor/unit and/or counseling patient: Resident Activity Tracking Resident Involvement: Resident Care Provided Care Provided: Adult Hospital Medicine (1) Hypertension Hypertension type: unspecified Qualified Code(s): I10 - Essential (primary) hypertension (2) Vomiting Nausea presence: with nausea Vomiting Intractability: intractable Vomiting type: unspecified Qualified Code(s): R11.2 - Nausea with vomiting, unspecified
[2019-03-29] MEDS: SODIUM CHLORIDE 0.9% 1000ML 1,000 ML IV SCH (16:43)
[2019-03-29] MEDS ORDERED: ONDANSETRON INJ 2 MG/ML 2 ML VIAL IV STA (17:22)
[2019-03-29] MEDS ORDERED: ONDANSETRON INJ 2 MG/ML 2 ML VIAL IV PRN (17:25)
[2019-03-29] MEDS ORDERED: PROCHLORPERAZINE 10 MG in SYRINGE 8 ML IV PRN (17:40)
[2019-03-30] MEDS: INSULIN HUMAN REGULAR SC SCH ×6 (00:01→13:39)
[2019-03-30] MEDS: SODIUM CHLORIDE 0.9% 1000ML 1,000 ML IV SCH (05:10)
[2019-03-30] MEDS ORDERED: SODIUM CHLORIDE 0.9% 1000ML 1,000 ML IV PRN (08:08)
[2019-03-30] MEDS ORDERED: HEPARIN SOD (PORCINE) 1000 UNIT/ML 10 ML VIAL IV SCH (08:30)
[2019-03-30] MEDS: CALCIUM ACETATE 667 MG CAP PO SCH ×2 (08:44→13:21)
[2019-03-30] MEDS ORDERED: LOSARTAN POTASSIUM 50 MG TAB PO SCH (09:00)
[2019-03-30 09:14] LABS: BUN Creatinine Ratio 9.6 (10-20); Calcium 8.1 mg/dl (8.5-10.1); Creatinine Clr Calc Pharmacy 14.8 ml/min; Est GFR (African American) 13.6; Est GFR (Non-African American) 11.7
[2019-03-30] MEDS: HEPARIN SOD (PORCINE) 1000 UNIT/ML 10 ML VIAL IV SCH ×3 (10:20→12:20)
--- NOTE | 2019-03-30 11:42 | Discharge Summary ---
Date of Service March 30, 2019 Admission HPI Per Admitting Provider 48-year-old male past medical history of type 1 diabetes, end-stage renal disease on dialysis, gastroparesis, hypertension, depression presents with elevated blood pressure and intractable vomiting. Patient has been in and out of the hospital over the past couple months. He has been unable to work since last May because of the symptoms. He lives at home with his parents and is on disability. The patient responds to questions primarily with yes or no answers. He is able to follow commands and open his eyes, but the medical history is limited. He denies any acute symptoms other than nausea at this formerly [facility]. Admission Exam Per Admitting Provider Constitutional: WD/WN, vitals as above Eyes: PERRL, conjunctivae normal, anicteric sclerae ENMT: external ear and nose normal, oropharynx normal Neck: trachea midline, no thyromegaly Respiratory: normal respiratory effort, lungs clear to auscultation Cardiovascular: RRR, no murmur, no edema Gastrointestinal (Abdomen): normal bowel sounds, soft, nontender, no hepatosplenomegaly Musculoskeletal: no cyanosis or clubbing, extremities motor strength 5/5 Skin: no rashes, warm and dry Neurologic: PERRL, EOMI, accommodation nl, no face palsy, no dysarthria Psychiatric: Orientation: alert and oriented x 3 Eye Contact: + poor eye contact Mood: + depressed mood Principal Diagnosis Intractable Vomiting Discharge Exam Constitutional well developed and well nourished; no acute distress Eyes normal visual garcia by confrontation and + anicteric sclerae ENMT Ears: no hearing impairment and no external ear abnormality Nose: no external nose abnormality Mouth: no lip abnormality Neck trachea midline, no thyromegaly Respiratory normal respiratory effort, lungs clear to auscultation Cardiovascular RRR, no murmur, no edema Gastrointestinal (Abdomen) Inspection/Auscultation: abdomen normal to inspection and normal bowel sounds Percussion/Palpation: abdomen soft; abdomen nontender and no guarding Skin normal turgor Psychiatric Orientation: alert and oriented x 3 Eye Contact: + fair eye contact Affect: + flat affect Genitourinary no CVA tenderness Discharge Data Allergies Allergy/AdvReac Type Severity Reaction Status Date / Time shellfish derived Allergy Severe anaphylaxis Verified 03/27/19 20:59 codeine Allergy Intermediate Hives Verified 03/27/19 20:59 promethazine Allergy Intermediate itchy/hives Verified 03/27/19 20:59 Consultations 03/27/19 23:10 ED Decision to Admit Stat 03/28/19 01:07 Consult Case Management - Discharge Planning Routine 03/28/19 06:54 Consult Nephrology Routine Hospital Course (1) Intractable nausea and vomitin-year-old male past medical history of type 1 diabetes, end-stage renal disease on dialysis, gastroparesis, hypertension, depression presents with elevated blood pressure and intractable vomiting. Admitted for observation and symptom control while awaiting placement for personal care facility. Intractable nausea/vomiting the setting of gastroparesis/probable hypertensive crisis Provided antiemetics including Zofran 4mg IV and Compazine 10mg IV. -Patient was advanced to full diet for dinner 03/28/19 to which he did well, but returned to NPO status 2/2 intractable nausea/vomiting the following morning. -Provided gentle hydration at NSS 80ml/hr during NPO status and monitored for overload due to ESRD requiring Dialysis. Mild leukocytosis, likely secondary to demargination resolved. -Patient does have an EGD from 11/02/18 which showed Esophageal Candidiasis and a Normal Stomach and Duodenum. -Patient currently doing well on Full Liquid diet. -DC to [facility]. Probable hypertensive crisis Continued losartan, carvedilol, amlodipine Hydralazine as needed for pressures above 180/110 Type I diabetic, end-stage renal disease on dialysis Glycemic consult was placed Nephrology consult placed, patient received dialysis while inpatient per his [facility] schedule Depression/anxiety Continued Wellbutrin, sertraline, lorazepam DVT prophylaxis while inpatient with SCDs CODE STATUSfull Dispo - [facility] (2) Vomiting: (3) Hypertension: (4) Failure of outpatient treatment: (5) Acute hyponatremia: (6) ESRD on dialysis: (7) ESRD (end stage renal disease): (8) Depression: (9) Uncontrolled hypertension: (10) DM (diabetes mellitus): Total Time Total Time Spent Total Time Spent (In Minutes): see attending attestation Discharge Plan Discharge Items Patient Disposition: Transfer [facility] Fac Reason For Visit: HTN URGENCY Discharge Diagnosis: Intractable Vomiting Condition on Discharge: Good Activity: Resume your previous activity Non-emergency contact: Primary Care Provider Call non-emergency contact if: you have any medication questions and your symptoms worsen Follow-up/Referrals: Cory Celestin MD [Primary Care Provider] - Diet: Carb Count or DM1 Addtl Attending Provider Instructions: Mr. De Los Santos, angela were admitted on 03/28/19 to [facility] after presenting to the ED with severely elevated blood pressure and intractable vomiting. It was discussed with you at that time that it may be best that you have a short stay at a personal care facility until your symptoms could be fully controlled in the outpatient setting and you agreed to be admitted so that your symptoms could be managed until a room could be found for you. During your stay, your nausea was controlled with anti-emetic medications including Zofran and Compazine and your blood pressure was controlled with your home medications. You also received dialysis while you were in the hospital at your regular schedule of MWF. We controlled your diabetes with insulin and continued your medications for depression and anxiety as prescribed. Today you have been noted to be feeling better and have had better control of your symptoms and are being discharged to [facility]. -Please continue your medications as they are prescribed to you. -Please follow up with your PCP within a week after you are discharged from [facility]. -If you have any medical questions concerning your medical conditions, please call your PCP. Pending Studies at Discharge: No Stand-Alone Forms: My [facility] Skilled Items Patient informed of condition?: Yes DNR: No Discharge Level of Care: Skilled Communicable Disease: No Discharge Prognosis: Stable Lines: None Urinary Catheter: No Medications and DC Order Prescriptions: Continued Basaglar KwikPen U-100 Insulin 100 unit/mL (3 mL) insulin pen 18 units SQ DAILY@0930 Qty: 30 RF: 1 famotidine 20 mg tablet 20 mg PO QAM RF: 0 acetaminophen 325 mg tablet 650 mg PO UD PRN (Reason: fever or pain) RF: 0 ondansetron HCl [Zofran] 4 mg tablet 4 mg PO QID PRN (Reason: Nausea And Vomiting) RF: 0 atorvastatin 10 mg tablet 10 mg PO QAM RF: 0 metoclopramide HCl 5 mg tablet 5 mg PO Q6H RF: 0 [place] Caps 1 mg capsule 1 cap PO QAM RF: 0 aprepitant 80 mg capsule 80 mg PO UD PRN (Reason: Nausea) RF: 0 bupropion HCl 100 mg tablet sustained-release 12 hr 100 mg PO QAM RF: 0 insulin lispro [Admelog SoloStar U-100 Insulin] 100 unit/mL insulin pen See Rx Instructions subcut DAILY PRN (Reason: sliding scale) RF: 0 lorazepam 0.5 mg Tablet 0.5 mg SUBLINGUAL Q6H PRN (Reason: Anxiety) RF: 0 amlodipine 10 mg tablet 10 mg PO QAM RF: 0 sertraline 100 mg tablet 100 mg PO QAM RF: 0 triamcinolone acetonide 0.1 % cream 1 applic topical TID RF: 0 carvedilol 12.5 mg Tablet 12.5 mg PO BID Qty: 60 RF: 0 losartan 25 mg Tablet 25 mg PO QAM Qty: 30 RF: 0 Discontinued calcium acetate 667 mg capsule 667 mg PO TIDM MDD 7 CAPSULES/DAY RF: 0 cholecalciferol (vitamin D3) 2,000 unit capsule 2,000 unit PO QAM RF: 0 Discharge Orders: Discharge Order (Routine); Ordered 03/30/19 Ordered By: Dionicio Mckinley Admission Data Admit Date/Time: 03/29/19 12:18 Attending Provider: Tessa Mckay Admit Provider: Cory Blankenship Primary Care Provider: Cory Celestin Other Providers: [facility] ; Colton Guajardo ; Lor Guadalupe Other Interventions: Discharge Summary Assessment (RN) Last Done: 03/30/19 13:42 DC Date/Time DO NOT enter until pt leaves facility: 03/30/19 14:34 Supervising Physician Co-Signing Physician Notes Resident Physician Supervision Note: I independently interviewed and examined the patient and verified the julien history and physical, reviewed labs and image studies, discussed the case with the resident Dr. Mckinley and agree with the findings and care plan. Time spent in discharge 35 min Resident Activity Tracking Resident Involvement: Resident Care Provided Care Provided: Adult Hospital Medicine
[2019-03-30] MEDS: carvediloL 12.5 MG TAB PO SCH (13:20)
[2019-03-30] MEDS: SERTRALINE HCL 100 MG TABLET PO SCH (13:20)
[2019-03-30] MEDS: AMLODIPINE BESYLATE 5 MG TAB PO SCH (13:21)
[2019-03-30] MEDS: BuPROPion SR 100 MG TABCR PO SCH (13:21)
[2019-03-30] MEDS: ATORVASTATIN 10 MG TAB PO SCH (13:21)
[2019-03-30] MEDS: FAMOTIDINE 20 MG TAB PO SCH (13:22)
[2019-03-30] MEDS: NEPHROCAPS PO SCH (13:22)
--- NOTE | 2019-03-30 13:36 | Pharmacy Report ---
Pharmacy Glycemic Short Note 2 - Date of Service March 30, 2019 - Glycemic Short BSG Results (Last 24 hours): 03/29/19 03/29/19 03/29/19 16:18 17:44 23:48 Glucose POC Glucose 127 H 248 H 189 H 03/30/19 03/30/19 06:07 07:50 Glucose 214 H POC Glucose 224 H OUTPATIENT ANTIDIABETIC REGIMEN: * Basaglar 18 units daily * Humalog using CR 1:10 + SS * A1c unreliable d/t ESRD ASSESSMENT: 03/30 * Mr. De Los Santos's BSGs ranged from 127-432 yesterday, he has been receiving regular insulin q6H per scale as basal insulin with additional doses for correction (he received an additional 21 units for correction) * HD planned for today * Fasting this morning improved from yesterday, will continue current regimen. 03/28 * Mr De Los Santos is a 48 y/o male with T1DM well known to the pharmacy glycemic service from past admissions. * Pt is admitted 1 day after previous discharge for hypertensive urgency and intractable nausea/vomiting in the setting of gastroparesis. * During previous admissions, we have switched him to Regular insulin q6h to serve as basal/prandial/correctional due to his sporadic eating habits and severe gastroparesis. This has traditionally worked well so will continue to trial. * Patient was in dialysis today, so 1200 dose of regular insulin was omitted. Will adjust the remaining doses this evening to avoid missing the dose altogether. PLAN FOR INPATIENT GLYCEMIC CONTROL: * Basal/prandial insulin - no change * Novolin R q6h per the following scale: * 2 unit for BSG < 110 * 3 units for BSG 110-150 * 4 units for BSG > 150 * Correctional insulin - no change * Novolin R per scale q6h, to coincide with basal dosing * Goal Range: Low 110 mg/dL - High 150 mg/dL * Correction Factor: 30 mg/dL/unit Discharge Recommendations: * A1c is unreliable d/t ESRD * Per reports of outpatient control, he has been well controlled. Recommend to continue same regimen on discharge.
--- NOTE | 2019-03-30 18:37 | Dialysis Progress Note ---
Date of Service March 30, 2019 Assessment & Plan (1) ESRD on dialysis: HD today via [facility]; 4hr tx, 2K bath, miniheparin; goal 2L fluid off>> at the tiem I saw him, thought we might go for more fluid off but only tolerated 1.4 L at last tx so left 2L goal; also he clotted off 30 min early and will increase his heparin on HD at next tx. -no epo indicated -cont binders ac (2) Hypertension: acceptable control at this time; labile and challenging to control at baseline; cont current meds/ HD; control depression and GI sx Subjective seen on HD today at 1030 am; tolerating tx well; bp w/ better control; no N/dry heaves; mood ok Review of Systems Review of Systems: All systems reviewed & are unremarkable except as noted in HPI & below Physical Exam Constitutional: well developed, + cachectic, + frail appearing and cooperative on RA nad Eyes: EOM intact bilaterally ENMT: Ears: no external ear abnormality Nose: no external nose abnormality Mouth: + dry oral mucous membranes Neck: no nuchal rigidity Respiratory: normal respiratory effort Auscultation: + diminished lung sounds Cardiovascular: RRR, no murmur, no edema Extremities: + AV fistula (w/o (sic) t/b) Gastrointestinal (Abdomen): Inspection/Auscultation: normal bowel sounds Percussion/Palpation: abdomen soft; abdomen nontender Musculoskeletal: Extremities: strength 5/5 throughout Skin: no rashes, warm and dry Neurologic: spicer, no tremor Psychiatric: A+Ox3, euthymic affect Speech: normal rate/rhythm/volume of speech Results & Data Vital Signs (Past 12 Hours) Vital Signs Temp Pulse Pulse Pulse Resp BP BP 03/30/19 13:42 36.5 C 86 85 20 161/99 H 03/30/19 13:19 36.5 C 85 161/99 H 03/30/19 12:40 81 167/96 H 03/30/19 12:20 80 157/101 H 03/30/19 12:00 79 161/100 H 03/30/19 11:40 77 160/97 H 03/30/19 11:20 82 161/96 H 03/30/19 11:00 78 166/96 H 03/30/19 10:40 78 173/98 H 03/30/19 10:20 81 183/106 H 03/30/19 10:00 83 165/105 H 03/30/19 09:40 86 178/111 H 03/30/19 09:27 80 156/100 H 03/30/19 09:21 36.3 C L 03/30/19 08:16 36.9 C 86 20 165/87 H 03/30/19 07:25 83 Pulse Ox 03/30/19 13:42 95 03/30/19 13:19 03/30/19 12:40 03/30/19 12:20 03/30/19 12:00 03/30/19 11:40 03/30/19 11:20 03/30/19 11:00 03/30/19 10:40 03/30/19 10:20 03/30/19 10:00 03/30/19 09:40 03/30/19 09:27 03/30/19 09:21 03/30/19 08:16 95 03/30/19 07:25 Laboratory Results 03/29/19 06:37 03/30/19 07:50 (1) Hypertension Hypertension type: unspecified Qualified Code(s): I10 - Essential (primary) hypertension
== END 2019-03-30 14:34 | DRG 304 ==
LOC: 2N 18:49 → ED 18:49 → SUATTDRO 23:51 → 2N 03-28 00:22

== ENCOUNTER 2019-06-02 13:41 | Observation (INO) ==
[2019-06-02] MEDS ORDERED: PROCHLORPERAZINE 2 ML IV ONE (14:16)
[2019-06-02] MEDS ORDERED: FAMOTIDINE 20MG/5ML IV PUSH IV STA (14:16)
[2019-06-02] MEDS ORDERED: SODIUM CHLORIDE 0.9% 1000ML 1,000 ML IV SCH (14:30)
[2019-06-02 14:45] LABS: Alanine Aminotransferase 36 U/L (12-78); Albumin Level 3.9 gm/dl (3.4-5.0); Alkaline Phosphatase 132 U/L (45-117); Aspartate Aminotransferase 26 U/L (15-37); BUN Creatinine Ratio 9.3 (10-20); Bilirubin,Total 0.3 mg/dl (0.2-1); Blood Urea Nitrogen 75 mg/dl (7-18); Calcium 9.3 mg/dl (8.5-10.1); Carbon Dioxide 22 mmol/L (21-32); Chloride 98 mmol/L (98-107); Est GFR (African American) 8.1; Globulin 3.8 gm/dl (2.5-4.0); Glucose 136 mg/dl (70-99); Lipase 88 U/L (73-393); Magnesium 2.8 mg/dl (1.8-2.4); Phosphorus 4.7 mg/dl (2.5-4.9); Potassium 4.6 mmol/L (3.5-5.1); Sodium 134 mmol/L (136-145); Total Protein 7.7 gm/dl (6.4-8.2); Troponin I < 0.015 ng/ml (0-0.045)
[2019-06-02 14:46] LABS: Basophils # (auto) 0.07 K/uL (0-0.2); Basophils % (auto) 0.6 %; Eosinophils # (auto) 0.08 K/uL (0-0.5); Eosinophils % (auto) 0.7 %; Hematocrit (blood only) 44.2 % (42-52); Hemoglobin 14.6 g/dL (14.0-18.0); Immature Granulocytes # (auto) 0.02 K/uL (0.00-0.02); Immature Granulocytes % (auto) 0.2 %; Lymphocytes # (auto) 2.19 K/uL (1.2-3.4); Lymphocytes % (auto) 18.8 %; Mean Corpuscular Hemoglobin 32.7 pg (25-34); Mean Corpuscular Volume 98.9 fL (80-100); Mean Platelet Volume 9.8 fL (7.4-10.4); Monocytes # (auto) 0.91 K/uL (0.11-0.59); Monocytes % (auto) 7.8 %; Neutrophils # (auto) 8.37 K/uL (1.4-6.5); Neutrophils % (auto) 71.9 %; Platelet Count 285 K/uL (130-400); RDW Coefficient of Variation 13.5 % (11.5-14.5); RDW Standard Deviation 48.7 fL (36.4-46.3); Red Blood Count 4.47 M/uL (4.7-6.1); White Blood Count 11.64 K/uL (4.8-10.8)
--- NOTE | 2019-06-02 14:51 | XRay Report ---
KUB CLINICAL HISTORY: nausea, vomiting COMPARISON STUDY: CT of the abdomen and pelvis January 31, 2019. Abdominal series and chest radiograp h March 23, 2019. FINDINGS: Dual lumen catheter is partially imaged on this examination. A 6 mm right renal calculus is unchanged. Internal fixation hardware within the right femur is partially imaged. The bowel gas jonnathan arnaldo is normal. Surgical staple line within the right lower quadrant is noted. Pelvic calcifications r epresent phleboliths. The amount of stool within the colon and rectum is within normal limits. A bone island within the right iliac bone is incidentally noted. IMPRESSION: 1. No evidence for a bowel obstruction. 2. 6 mm right renal calculus. ACT 112: Negative or not required by law. Electronically signed by: Gabino Cool M.D. 06/02/2019 2:49 PM
[2019-06-02] MEDS ORDERED: ONDANSETRON INJ 2 MG/ML 2 ML VIAL IV STA (15:39)
[2019-06-02] MEDS ORDERED: LABETALOL HCL IV 5 MG/ML 20ML IV STA (15:44)
--- NOTE | 2019-06-02 16:14 | Emergency Department Note ---
Entered by Belinda White acting as a scribe for Calderon Griffin M.D. History of Present Illness General Chief complaint: Vomiting Stated complaint: VOMITING, HIGH BP Time Seen by Provider: 06/02/19 14:04 Source: patient and family Mode of arrival: ambulatory Limitations: no limitations History of Present Illness Provider complaint: Vomiting Onset (ago): day(s) (several days ago) Location: mouth Radiation: non-radiation Severity: similar to prior episodes Pain Consistency: + other (persistent) Maximum Pain Intensity: 2 Quality: + other (vomiting) Relieved By: + none Associated symptoms: + fever/chills (negative fever, positive chills), + nausea/vomiting and + other (Additional symptoms: hyperglycemia. Denies: diarrhea, abdominal pain); no chest pain The patient is a 48 year old male with a history of end stage renal disease, type 1 diabetes, gastroparesis, CAD, diabetic neuropathy, heart failure, hypertension, kidney stones, cardiac catheterization, and permanent central venous catheter who presents to the Emergency Room with complaints of persistent vomiting starting several days ago. The patient reports that he was evaluated in the ED a few days ago for these symptoms but his vomiting still has not resolved. He states that he has been unable to eat and keep anything down and that he is no longer bringing anything up. He also complains of chills, nausea, and hyperglycemia. Per family, the patient's blood sugar was 256 at noon today. His family adds that Zofran and Ativan did not improve his symptoms. The patient currently denies any fevers, diarrhea, chest pain, and abdominal pain. His family also denies any recent sick contact. The patient indicates that he is on dialysis 3x/week and is due for dialysis tomorrow. Home Medications Home Medications Medication Instructions Recorded Confirmed Type [place] Caps 1 cap PO DAILY 12/19/18 06/02/19 History atorvastatin 10 mg tablet 10 mg PO DAILY tab 01/06/19 06/02/19 History famotidine 20 mg tablet 20 mg PO 3XWK tab 03/10/19 06/02/19 History metoclopramide HCl 5 mg tablet 5 mg PO ACHS tab 03/10/19 06/02/19 History sertraline 100 mg PO DAILY 03/21/19 06/02/19 History bupropion HCl 100 mg tablet,12 hr 100 mg PO DAILY ea 04/14/19 06/02/19 History sustained-release losartan 50 mg tablet 75 mg PO DAILY #90 tab 04/14/19 06/02/19 Rx aprepitant 80 mg capsule 80 mg PO DIRECTED PRN cap MDD 04/27/19 06/02/19 History 80 MG/WEEK carvedilol 25 mg tablet 50 mg PO BID #120 tab 04/27/19 06/02/19 Rx lorazepam 0.5 mg tablet 0.5 mg PO Q6H PRN 04/27/19 06/02/19 History ondansetron 4 mg disintegrating 4 mg PO Q6H PRN 04/27/19 06/02/19 History tablet insulin aspart U-100 100 100 See Rx Instructions SUBCUT UD ml 04/28/19 History unit/mL subcutaneous solution Contour Next Test Strips #240 ea NS 05/04/19 05/16/19 Rx Basaglar KwikPen U-100 Insulin 18 units SQ QAM 05/16/19 06/02/19 History calcium acetate See Rx Instructions .ROUTE .COMPLEX 05/31/19 06/02/19 History cholecalciferol (vitamin D3) 2,000 unit PO DAILY 05/31/19 06/02/19 History [Vitamin D3] Allergies Allergy/AdvReac Type Severity Reaction Status Date / Time shellfish derived Allergy Severe anaphylaxis Verified 06/02/19 15:12 codeine Allergy Intermediate Hives Verified 06/02/19 15:12 promethazine Allergy Intermediate itchy/hives Verified 06/02/19 15:12 Past Med/Surg History Medical History CAD (coronary artery disease) mild, non-obstructive CAD per 10/2018 cardiac cath Depression Diabetes mellitus type I (Chronic) Diabetic neuropathy Diabetic retinopathy ESRD (end stage renal disease) Hemodialysis via permacath M,W,F (Follows with Dr. Taylor Higgins; [facility]/[place]) Gastroparesis (Chronic) Heart failure with reduced ejection fraction (Chronic) Hypertension Kidney stones Surgical History H/O shoulder surgery RIGHT History of appendectomy History of cardiac cath 10/2018= no stents, no obstructive disease (at [facility]) History of hip surgery LEFT HIP ARTHROSCOPY History of lithotripsy Nausea and vomiting after administration of anesthetic agent Permanent central venous catheter in place Permacath Family History Grandfather Myocardial infarction Grandfather (Maternal) Family history of diabetes mellitus Uncle Myocardial infarction Social History Preferred Language: Telugu Communication Ability: Effective Visual Impairment: No Limitations Hearing Ability: Normal 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: No Beliefs That Will Affect Care: None marital status: Current Living Situation: Other Current Living Situation Comment: CURRENT : [facility] current occupational status: unemployed Other Information That Helps Us Care for You: No Feels Safe at Home: Yes Safety Concerns: Feels Safe At This Time Smoking Status: Unknown if ever smoked Hx Alcohol Use: No Hx Substance Use: No Childhood Exposure to Second-Hand Smoke: Yes Dental Care, Regularly: No Physical Activity Frequency: 1-2 Times per Week Seatbelt Use: always Sunscreen Use: No Review of Systems See HPI for pertinent positives & negatives. and A total of 10 systems reviewed and were otherwise negative Physical Exam Vital Signs Vital Signs - 24 hr 06/02/19 13:50 06/02/19 14:54 06/02/19 14:57 Temperature 36.5 C Temperature Source Oral Pulse Rate 78 78 78 Pulse Rhythm Regular Pulse Strength Normal Respiratory Rate 22 11 L 12 Respiratory Effort / Characteristics Non-Labored Spontaneous Respiratory Depth Normal Respiratory Pattern Regular Blood Pressure 152/84 H 220/107 H Blood Pressure Mean 106 150 Blood Pressure Position Sitting Pulse Oximetry 98 Oxygen Delivery Method Room Air Sepsis Recent Fever Within 48 Hours No Sepsis New/Unexplained Change in Mental Status No Sepsis Action Taken by Nursing No Action Required 06/02/19 15:00 06/02/19 15:23 06/02/19 15:24 Temperature Temperature Source Pulse Rate 77 78 75 Pulse Rhythm Pulse Strength Respiratory Rate 13 14 12 Respiratory Effort / Characteristics Respiratory Depth Respiratory Pattern Blood Pressure 215/115 H Blood Pressure Mean 147 Blood Pressure Position Pulse Oximetry Oxygen Delivery Method Sepsis Recent Fever Within 48 Hours Sepsis New/Unexplained Change in Mental Status Sepsis Action Taken by Nursing 06/02/19 15:30 06/02/19 15:31 06/02/19 16:00 Temperature Temperature Source Pulse Rate 78 76 78 Pulse Rhythm Pulse Strength Respiratory Rate 11 L 13 11 L Respiratory Effort / Characteristics Respiratory Depth Respiratory Pattern Blood Pressure 205/107 H 208/112 H Blood Pressure Mean 134 135 Blood Pressure Position Pulse Oximetry Oxygen Delivery Method Sepsis Recent Fever Within 48 Hours Sepsis New/Unexplained Change in Mental Status Sepsis Action Taken by Nursing 06/02/19 16:01 06/02/19 16:25 06/02/19 16:30 Temperature Temperature Source Pulse Rate 77 79 79 Pulse Rhythm Pulse Strength Respiratory Rate 13 11 L 13 Respiratory Effort / Characteristics Respiratory Depth Respiratory Pattern Blood Pressure 215/117 H 223/116 H Blood Pressure Mean 157 148 Blood Pressure Position Pulse Oximetry Oxygen Delivery Method Sepsis Recent Fever Within 48 Hours Sepsis New/Unexplained Change in Mental Status Sepsis Action Taken by Nursing 06/02/19 16:31 Temperature Temperature Source Pulse Rate 80 Pulse Rhythm Pulse Strength Respiratory Rate 12 Respiratory Effort / Characteristics Respiratory Depth Respiratory Pattern Blood Pressure Blood Pressure Mean Blood Pressure Position Pulse Oximetry Oxygen Delivery Method Sepsis Recent Fever Within 48 Hours Sepsis New/Unexplained Change in Mental Status Sepsis Action Taken by Nursing GENERAL: Awake, fatigued, weak-appearing, in no distress, retching HENT: Normocephalic, atraumatic. Dry mucous membranes. EYES: Normal conjunctiva. Sclera non-icteric. NECK: Supple. No nuchal rigidity. RESPIRATORY: Clear to auscultation. No wheezes. Normal respiratory effort. CARDIAC: Normal rate. Normal rhythm. Extremities warm and well perfused. GI: Soft, non-distended. No tenderness to palpation. No rebound or guarding. RECTAL: Deferred. MUSCULOSKELETAL: Atraumatic. Chest examination reveals no tenderness. There is no CVA tenderness to palpation. LUE fistula LOWER EXTREMITIES: Calves are equal size bilaterally and non-tender. No edema NEURO: Normal sensorium. No sensory or motor deficits noted. No facial droop. SKIN: Warm and dry. No rash or jaundice noted. Course Course 1411: The patient was evaluated in room C8, and a complete history and physical examination were performed. 1538: I checked on the patient and he had no improvement of his symptoms. The patient is agreeable to admission. 1606: I reviewed the patient's case with Dr. Gutierrez - Hospitalist, Tea Lozano. Dr. Gutierrez will evaluate the patient for further management. Consultations Consultation #1: I reviewed the patient's case with Dr. Gutierrez - [facility], Tea Lozano. Dr. Gutierrez will evaluate the patient for further management. Time: 16:06 Administered Medications Sodium Chloride (Nss 1000ml) 1,000 mls @ 100 mls/hr IV .Q10H JACKI Stop: 07/02/19 19:31 Last Admin: 06/02/19 19:48 Dose: 100 mls/hr Documented by: [id number] Prochlorperazine 5 mg/ Syringe 5 mls @ 5 mls/min IV Q6H PRN PRN Reason: Nausea Stop: 07/02/19 21:29 Last Admin: 06/02/19 21:56 Dose: 5 mls/min Documented by: [id number] Metoclopramide HCl (Reglan) 10 mg IV Q6H JACKI Stop: 07/02/19 19:59 Last Admin: 06/02/19 19:48 Dose: 10 mg Documented by: [id number] Ondansetron HCl (Zofran) 4 mg IV Q6H PRN PRN Reason: Nausea Stop: 07/02/19 19:31 Last Admin: 06/02/19 19:48 Dose: 4 mg Documented by: [id number] Discontinued Medications Bisacodyl (Dulcolax) 10 mg NE NOW STA Stop: 06/02/19 19:33 Last Admin: 06/02/19 21:22 Dose: Not Given Documented by: [id number] Famotidine (Pepcid 20mg Iv Push) 20 mg IV ONE STA Stop: 06/02/19 14:17 Last Admin: 06/02/19 14:26 Dose: 20 mg Documented by: [id number] Sodium Chloride (Nss 1000ml) 1,000 mls @ 999 mls/hr IV .Q1H1M JACKI Stop: 06/02/19 15:30 Last Infusion: 06/02/19 15:35 Dose: 0 mls/hr Documented by: [id number] Admin: 06/02/19 14:26 Dose: 999 mls/hr Documented by: [id number] Prochlorperazine (Compazine) 2 mls @ 1 mls/min IV ONE ONE Stop: 06/02/19 14:17 Last Admin: 06/02/19 14:26 Dose: 1 mls/min Documented by: [id number] Labetalol HCl (Normodyne) 10 mg IV NOW STA Stop: 06/02/19 15:45 Last Admin: 06/02/19 16:14 Dose: 10 mg Documented by: [id number] Cosigned by: [id number] Ondansetron HCl (Zofran) 4 mg IV NOW STA Stop: 06/02/19 15:40 Last Admin: 06/02/19 15:57 Dose: 4 mg Documented by: [id number] Medical Decision Making Differential Diagnosis Differential diagnosis: Etiologies such as gastroenteritis, food borne illness, infections, appendicitis, diverticulitis, inflammatory bowel disease, obstruction, GI bleed, biliary pathology, as well as others were entertained. Medical Records Attestation: I reviewed the patient's medical records. Home Medications Current Medication List: was personally reviewed by me Laboratory Data Attestation: I reviewed the patient's lab results. Result diagrams: 06/02/19 14:02 06/02/19 14:02 Lab Results 06/02/19 06/02/19 Range/Units 14:02 14:02 WBC 11.64 H (4.8-10.8) K/uL RBC 4.47 L (4.7-6.1) M/uL Hgb 14.6 (14.0-18.0) g/dL Hct 44.2 (42-52) % MCV 98.9 (80-100) fL MCH 32.7 (25-34) pg MCHC 33.0 (32-36) g/dL RDW Std Deviation 48.7 H (36.4-46.3) fL RDW Coeff of Kami 13.5 (11.5-14.5) % Plt Count 285 (130-400) K/uL MPV 9.8 (7.4-10.4) fL Immature Gran % (Auto) 0.2 % Neut % (Auto) 71.9 % Lymph % (Auto) 18.8 % [place] % (Auto) 7.8 % Eos % (Auto) 0.7 % Baso % (Auto) 0.6 % Immature Gran # (Auto) 0.02 (0.00-0.02) K/uL Neut # (Auto) 8.37 H (1.4-6.5) K/uL Lymph # (Auto) 2.19 (1.2-3.4) K/uL [place] # (Auto) 0.91 H (0.11-0.59) K/uL Eos # (Auto) 0.08 (0-0.5) K/uL Baso # (Auto) 0.07 (0-0.2) K/uL Sodium 134 L (136-145) mmol/L Potassium 4.6 (3.5-5.1) mmol/L Chloride 98 (98-107) mmol/L Carbon Dioxide 22 (21-32) mmol/L Anion Gap 13.0 H (3-11) BUN 75 H D (7-18) mg/dl Creatinine 8.14 H* D (0.6-1.4) mg/dl Est Cr Clr Drug Dosing 10.0 ml/min Est GFR ( Amer) 8.1 Est GFR (Non-Af Amer) 7.0 BUN/Creatinine Ratio 9.3 L (10-20) Glucose 136 H (70-99) mg/dl Calcium 9.3 (8.5-10.1) mg/dl Phosphorus 4.7 (2.5-4.9) mg/dl Magnesium 2.8 H (1.8-2.4) mg/dl Total Bilirubin 0.3 (0.2-1) mg/dl AST 26 (15-37) U/L ALT 36 (12-78) U/L Alkaline Phosphatase 132 H (45-117) U/L Troponin I < 0.015 (0-0.045) ng/ml Total Protein 7.7 (6.4-8.2) gm/dl Albumin 3.9 (3.4-5.0) gm/dl Globulin 3.8 (2.5-4.0) gm/dl Albumin/Globulin Ratio 1.0 (0.9-2) Lipase 88 (73-393) U/L Imaging Data Radiologist's Impression: Radiology results as stated below per my review and the radiologist's interpretation: KUB CLINICAL HISTORY: nausea, vomiting COMPARISON STUDY: CT of the abdomen and pelvis January 31, 2019. Abdominal series and chest radiograph March 23, 2019. FINDINGS: Dual lumen catheter is partially imaged on this examination. A 6 mm right renal calculus is unchanged. Internal fixation hardware within the right femur is partially imaged. The bowel gas pattern is normal. Surgical staple line within the right lower quadrant is noted. Pelvic calcifications represent phleboliths. The amount of stool within the colon and rectum is within normal limits. A bone island within the right iliac bone is incidentally noted. IMPRESSION: 1. No evidence for a bowel obstruction. 2. 6 mm right renal calculus. ACT 112: Negative or not required by law. Electronically signed by: Gabino Cool M.D. 06/02/2019 2:49 PM ECG Data Attestation: I personally reviewed and interpreted this ECG as follows: Indication: + vomiting Rate (beats per minute): 79 Rhythm: + normal sinus ECG ST segments: no ST depression and no ST elevation ECG Findings: + Other (QTc is 479); no PVCs Comparison ECG Date: from (05/31/19) Change: the following changes noted (QTc appears improved) Blood Pressure Blood Pressure Findings: Elevated blood pressure Blood Pressure Disposition: further management by hospitalist DAVID Newberry Patient is a 48-year-old gentleman with a past medical history of peripheral neuropathy, gastroparesis, ESRD, hypertension, and type 1 diabetes presenting here today reporting continued issues with his stomach. States he has been vomiting and not able to keep anything down over the last day and a half since being seen in the ER. Denies any pain or diarrhea. Denies any fever. States compliance with dialysis last had this 2 days ago. 2 days ago was in the emergency department received IV fluids, Compazine, Zofran, Benadryl and Ativan with improvement of his symptoms. Has been trying Zofran and Ativan at home with limited improvement not keeping anything down. Benign abdomen. Appears significantly fatigued and with dry mucous membranes/dehydrated on exam. Given IV fluids here. Given some Compazine to help with symptoms as this has helped in the past. Basic labs are completed. Abdominal x-ray obtained. Again no significant abdominal pain and I doubt perforation, cholecystitis, appendicitis, or diverticulitis. Not significantly consistent with hepatitis or pancreatitis at this time either. Patient has evidence of elevated creatinine consistent with his end-stage renal disease. Slight hyponatremia noted. Anion gap slightly elevated likely in relation to his need for dialysis but no emergent need at this time. No hypokalemia or hyperkalemia noted. No hypomagnesemia. White count 11.6 is non-specific. KUB without evidence of obstruction. On reevaluation the patient had no significant change of symptoms. EKG shows improved QTC and given additional Zofran here to try to help with symptoms. Given small labetalol as he has been significantly hypertensive here. Given his intractable nausea and dry heaving/vomiting as well as hypertension believe the patient requires admission and the patient agreed with this. Discussed with the hospitalist. Impression & Plan Intractable nausea and vomiting, Hypertensive urgency, Dehydration Discharge Plan Visit Data *Final* Discharge Date/Time: 06/02/19 18:52 Chief Complaint: Vomiting Stated Complaint: VOMITING, HIGH BP ED Provider: Calderon Griffin Discharge Problem: Intractable nausea and vomiting, Hypertensive urgency, Dehydration Patient Disposition: Admitted As Inpatient Discharge Instructions Interventions: ED Discharge Assessment Last Done: 06/02/19 18:52 The eliazaribe's documentation has been prepared under my direction and personally reviewed by me in its entirety. I confirm that the note above accurately reflects all work, treatment, procedures, and medical decision making performed by me.
[2019-06-02] MEDS ORDERED: APREPITANT 80 MG CAP PO PRN (16:39)
[2019-06-02] MEDS ORDERED: LORazepam 0.5 MG TAB PO PRN (16:39)
[2019-06-02] MEDS ORDERED: ONDANSETRON HOME PACK 4MG OD TAB PO PRN (16:39)
--- NOTE | 2019-06-02 16:39 | History & Physical Report ---
Date of Service June 02, 2019 Assessment & Plan (1) Gastroparesis: Patient has ongoing gastroparesis, may be a component of constipation which is causing his flare. Will place in observation. Did start IV [id number] Reglan along with Zofran as needed. Gentle IV hydration. Clear liquid diet as tolerated. We will also order a Dulcolax suppository, consider enema for bowel movement which may help. Patient is known to GI will consult in the for further recommendations. (2) ESRD (end stage renal disease): Patient is next dialysis session is tomorrow, will consult nephrology to evaluate and schedule accordingly. (3) Type 1 diabetes: Patient's blood sugar is acceptable now but he is currently not tolerating any sort of oral intake. Will order sliding scale along with half dosing of pat ient's Basaglar which is typically 18 units in the morning. As patient improves and starts tolerating diet better, can consider increasing the dose. (4) Hypertensive urgency: Patient's blood pressure significantly elevated to 208/112. The patient was just given IV labetalol prior to my arrival. We will monitor to see if this works. Can consider repeating dose versus adding a second agent such as hydralazine. He is on carvedilol 25 mg twice daily as well as losartan 75 mg daily, may not be able to tolerate these pills by mouth as of yet but will o rder. History of Present Illness Primary Care Provider: Cory Celestin MD This is a 48-year-old male with past medical history of brittle diabetes mellitus, end-stage renal disease on hemodialysis, and gastroparesis who presents today with intractable nausea vomiting. Patient does not really communicate with treatment with me as he appears very uncomfortable. There is another gentleman in the room who is able to give much more history. Patient apparently has been having several days worth of significant nausea and vomiting, consistent with his gastroparesis. He was actually seen in the emergency room on 05/31 and was offered admission at that time but improved with fluids and medication and decided to go home. However, several hours after returning home he started having significant more problems. The gentleman the room tells me that he tries Ativan, Reglan, and Emend which have not helped at all. He did tolerate a very small amount of an Beninese muffin this morning. His last bowel movement was 2 days ago. He is having no abdominal pain, fever, chills, or other symptoms at this time. Patient does appear to have ongoing nausea with dry heaving at this point and minimal gastric juices as vomitus. Patient typically gets hemodialysis at [facility], follows with Dr. Higgins. He also follows at the GI motility clinic in [place]. Allergies Allergy/AdvReac Type Severity Reaction Status Date / Time shellfish derived Allergy Severe anaphylaxis Verified 06/02/19 15:12 codeine Allergy Intermediate Hives Verified 06/02/19 15:12 promethazine Allergy Intermediate itchy/hives Verified 06/02/19 15:12 Home Medications Home Medications Medication Instructions Recorded Confirmed Type Chris Caps 1 cap PO DAILY 12/19/18 06/02/19 History atorvastatin 10 mg tablet 10 mg PO DAILY tab 01/06/19 06/02/19 History famotidine 20 mg tablet 20 mg PO 3XWK tab 03/10/19 06/02/19 History metoclopramide HCl 5 mg tablet 5 mg PO ACHS tab 03/10/19 06/02/19 History sertraline 100 mg PO DAILY 03/21/19 06/02/19 History bupropion HCl 100 mg tablet,12 hr 100 mg PO DAILY ea 04/14/19 06/02/19 History sustained-release losartan 50 mg tablet 75 mg PO DAILY #90 tab 04/14/19 06/02/19 Rx aprepitant 80 mg capsule 80 mg PO DIRECTED PRN cap MDD 04/27/19 06/02/19 History 80 MG/WEEK carvedilol 25 mg tablet 50 mg PO BID #120 tab 04/27/19 06/02/19 Rx lorazepam 0.5 mg tablet 0.5 mg PO Q6H PRN 04/27/19 06/02/19 History ondansetron 4 mg disintegrating 4 mg PO Q6H PRN 04/27/19 06/02/19 History tablet insulin aspart U-100 100 100 See Rx Instructions SUBCUT UD ml 04/28/19 06/02/19 History unit/mL subcutaneous solution Contour Next Test Strips #240 ea NS 05/04/19 05/16/19 Rx Basaglar KwikPen U-100 Insulin 18 units SQ QAM 05/16/19 06/02/19 History calcium acetate See Rx Instructions .ROUTE .COMPLEX 05/31/19 06/02/19 History cholecalciferol (vitamin D3) 2,000 unit PO DAILY 05/31/19 06/02/19 History [Vitamin D3] Past Med/Surg History Medical History CAD (coronary artery disease) mild, non-obstructive CAD per 10/2018 cardiac cath Depression Diabetes mellitus type I (Chronic) Diabetic neuropathy Diabetic retinopathy ESRD (end stage renal disease) Hemodialysis via permacath M,W,F (Follows with Dr. Taylor Higgins; [facility]) Gastroparesis (Chronic) Heart failure with reduced ejection fraction (Chronic) Hypertension Kidney stones Surgical History H/O shoulder surgery RIGHT History of appendectomy History of cardiac cath 10/2018= no stents, no obstructive disease (at [facility]) History of hip surgery LEFT HIP ARTHROSCOPY History of lithotripsy Nausea and vomiting after administration of anesthetic agent Permanent central venous catheter in place Permacath Family History Grandfather Myocardial infarction Grandfather (Maternal) Family history of diabetes mellitus Uncle Myocardial infarction Social History Preferred Language: Beninese Communication Ability: Effective Visual Impairment: No Limitations Hearing Ability: Normal Health Education Assistant Required: No Beliefs That Will Affect Care: None marital status: Current Living Situation: Family Current Living Situation Comment: CURRENT : [facility] current occupational status: unemployed Feels Safe at Home: Yes Smoking Status: Never smoker Tobacco Type: smokeless tobacco ; Second Hand Exposure: No (QUIT 02/2019) ; Hx Alcohol Use: No Hx Substance Use: No Childhood Exposure to Second-Hand Smoke: Yes Dental Care, Regularly: No Physical Activity Frequency: 1-2 Times per Week Seatbelt Use: always Sunscreen Use: No Review of Systems Review of Systems: Other Unobtainable other than what was noted above as patient was not communicating much with me. Physical Exam Constitutional: + ill appearing and average body habitus Respiratory: Auscultation: lungs clear to auscultation bilaterally; no crackles, no rales, no rhonchi and no wheezes Cardiovascular: Rate/Rhythm: regular rhythm and + tachycardic Heart Sounds: normal S1 and normal S2 Gastrointestinal (Abdomen): Percussion/Palpation: abdomen soft; abdomen nontender, no guarding and abdomen not rigid Very diminished bowel sounds Musculoskeletal: no cyanosis or clubbing, extremities motor strength 5/5 Skin: no rashes, warm and dry Results & Data Vital Signs (Past 12 Hours) Vital Signs Temp Pulse Resp BP Pulse Ox 06/02/19 16:01 77 13 06/02/19 16:00 78 11 L 208/112 H 06/02/19 15:31 76 13 06/02/19 15:30 78 11 L 205/107 H 06/02/19 15:24 75 12 06/02/19 15:23 78 14 215/115 H 06/02/19 15:00 77 13 06/02/19 14:57 78 12 06/02/19 14:54 78 11 L 220/107 H 06/02/19 13:50 36.5 C 78 22 152/84 H 98 Laboratory Results CBC is mildly elevated 11.64. Creatinine is 8.14 with a BUN of 75. Glucose is 136. Diagnostic Findings SINGLE VIEW CHEST CLINICAL HISTORY: Vomiting. End-stage renal disease. FINDINGS: 2 AP, portable, upright chest radiographs are compared to study dated 03/31/2019. The examination is degraded by portable technique and patient rotation. A double-lumen right subclavian central venous catheter is unchanged in position. The heart is top normal for projection. The pulmonary vasculature is noncongested. The lungs appear hyperinflated. Chronic interstitial thickening is similar to previous. No airspace consolidation or pleural effusion is identified. No pneumothorax is seen. The skeletal structures are osteopenic. The bony thorax is grossly intact. IMPRESSION: No active disease in the chest. --- KUB CLINICAL HISTORY: nausea, vomiting COMPARISON STUDY: CT of the abdomen and pelvis January 31, 2019. Abdominal series and chest radiograph March 23, 2019. FINDINGS: Dual lumen catheter is partially imaged on this examination. A 6 mm right renal calculus is unchanged. Internal fixation hardware within the right femur is partially imaged. The bowel gas pattern is normal. Surgical staple line within the right lower quadrant is noted. Pelvic calcifications represent phleboliths. The amount of stool within the colon and rectum is within normal limits. A bone island within the right iliac bone is incidentally noted. IMPRESSION: 1. No evidence for a bowel obstruction. 2. 6 mm right renal calculus. PG Care Time/CCT Total # of Minutes Spent Total Time Spent with Patient: Total time spent is greater than 50% in coordination of care (as documented) at patient's floor/unit and/or counseling patient: (1) Type 1 diabetes Diabetes mellitus complication status: with other specified complication Qualified Code(s): E10.69 - Type 1 diabetes mellitus with other specified complication
[2019-06-02] MEDS: METOCLOPRAMIDE HCL INJ 5 MG/ML 2 ML VIAL IV SCH (19:48)
[2019-06-02] MEDS: bisacodyL 10 MG SUPP PR STA ×2 (19:48→21:22)
[2019-06-02] MEDS: SODIUM CHLORIDE 0.9% 1000ML 1,000 ML IV SCH (19:48)
[2019-06-02] MEDS: ONDANSETRON INJ 2 MG/ML 2 ML VIAL IV PRN (19:48)
[2019-06-02] MEDS ORDERED: CALCIUM ACETATE 667 MG CAP PO PRN (20:05)
[2019-06-02] MEDS ORDERED: GLUCOSE 10 TABS/TUBE PO PRN (20:30)
[2019-06-02] MEDS ORDERED: GLUCOSE 40% GEL 15 GM TUBE PO PRN (20:30)
[2019-06-02] MEDS ORDERED: DEXTROSE 50% 50 ML SYRINGE IV PRN (20:30)
[2019-06-02] MEDS ORDERED: CARBOHYDRATES FOR HYPOGLYCEMIA PO PRN (20:30)
[2019-06-02] MEDS ORDERED: GLUCAGON FOR INJ 1 MG VIAL IM PRN (20:30)
[2019-06-02] MEDS: PROCHLORPERAZINE 5 MG in SYRINGE 4 ML IV PRN (21:56)
[2019-06-02] MEDS: HEPARIN SOD 5,000 UNIT/0.5 ML VIAL SQ SCH (22:22)
[2019-06-02] MEDS: carvediloL 25 MG TAB PO SCH (22:23)
[2019-06-02] MEDS: INSULIN ASPART 100 UNITS/ML 3 ML PEN SC SCH (22:24)
[2019-06-03] MEDS: ONDANSETRON INJ 2 MG/ML 2 ML VIAL IV PRN (03:19)
[2019-06-03] MEDS: METOCLOPRAMIDE HCL INJ 5 MG/ML 2 ML VIAL IV SCH ×4 (03:23→21:08)
[2019-06-03] MEDS: SODIUM CHLORIDE 0.9% 1000ML 1,000 ML IV SCH (05:14)
[2019-06-03] MEDS ORDERED: SODIUM CHLORIDE 0.9% 1000ML 1,000 ML IV PRN (07:00)
[2019-06-03] MEDS ORDERED: HEPARIN SOD (PORCINE) 1000 UNIT/ML 10 ML VIAL IV SCH (07:00)
[2019-06-03] MEDS: PROCHLORPERAZINE 5 MG in SYRINGE 4 ML IV PRN (07:12)
[2019-06-03 07:13] LABS: Basophils # (auto) 0.03 K/uL (0-0.2); Basophils % (auto) 0.3 %; Hematocrit (blood only) 40.7 % (42-52); Hemoglobin 13.2 g/dL (14.0-18.0); Immature Granulocytes # (auto) 0.02 K/uL (0.00-0.02); Immature Granulocytes % (auto) 0.2 %; Lymphocytes # (auto) 1.35 K/uL (1.2-3.4); Lymphocytes % (auto) 11.5 %; Mean Corpuscular Hgb Conc 32.4 g/dL (32-36); Mean Corpuscular Volume 98.8 fL (80-100); Mean Platelet Volume 9.5 fL (7.4-10.4); Monocytes % (auto) 6.8 %; Neutrophils # (auto) 9.58 K/uL (1.4-6.5); Neutrophils % (auto) 81.2 %; Platelet Count 255 K/uL (130-400); RDW Coefficient of Variation 13.3 % (11.5-14.5); RDW Standard Deviation 48.1 fL (36.4-46.3); Red Blood Count 4.12 M/uL (4.7-6.1); White Blood Count 11.78 K/uL (4.8-10.8)
[2019-06-03 07:50] LABS: BUN Creatinine Ratio 10.2 (10-20); Calcium 7.9 mg/dl (8.5-10.1); Creatinine Clr Calc Pharmacy 9.7 ml/min; Est GFR (Non-African American) 6.9; Magnesium 2.6 mg/dl (1.8-2.4); Potassium 4.5 mmol/L (3.5-5.1)
--- NOTE | 2019-06-03 08:32 | Nephrology Consultation ---
Date of Consultation June 03, 2019 Assessment & Plan (1) ESRD (end stage renal disease): -for routine HD today; next tx for 06/06 or as clinical needs dictate -access = TDC; has maturing AVF -continue binders, nephrocaps -agree w/ clear liquid diet and no fluid restriction for now Present on Admission?: Yes (2) Hypertensive urgency: -stopped NS at 100 ml hourly -dialysis will improve bp which is generally well controlled as OP -cont coreg 50 mg bid, losartan -- note though w/ n/v he may not keep these down, as hospitalist noted -will add IV hydralazine while having n/v standing and prn -should improve tx of N/V -has been running 170-210s past 12 hrs >> goal sbp today is 120-160s Present on Admission?: Yes (3) Intractable nausea and vomiting: -challenging chronic condition w/ periodic flares; per primary service Present on Admission?: Yes History of Present Illness Reason for Consultation: esrd Requesting Physician: Dr Gutierrez Attending Physician: Rhett Gutierrez, DO History of Present Illness 48 y/o M w/ ESRD on HD whom I'm asked to see for dialysis needs after he was admitted last evening for intractable N/v attributed to gastroparesis. PMH includes DM1, severe gastroparesis w/ chronic N/V, significant/severe anxiety/depression, ESRD on MWF HD via TDC, HTN, chronic systolic HF EF 35-40% 02/2019, nonischemic cardiomyopathy, R hip frx s/p ORIF 02/2019, stones w/ hx lithotripsy. He dialyzes under my care at [facility] MWF in center hemo via TDC; has maturing AVF. He is generally very adherent to dialysis treatments; has not missed any. He follows at [facility] and has had several admissions for intractable N/V, often in the setting of HTN urgency as was the case yesterday. Allergies Allergy/AdvReac Type Severity Reaction Status Date / Time shellfish derived Allergy Severe anaphylaxis Verified 06/02/19 15:12 codeine Allergy Intermediate Hives Verified 06/02/19 15:12 promethazine Allergy Intermediate itchy/hives Verified 06/02/19 15:12 Home Medications Home Medications Medication Instructions Recorded Confirmed Type Chris Caps 1 cap PO DAILY 12/19/18 06/02/19 History atorvastatin 10 mg tablet 10 mg PO DAILY tab 01/06/19 06/02/19 History famotidine 20 mg tablet 20 mg PO 3XWK tab 03/10/19 06/02/19 History metoclopramide HCl 5 mg tablet 5 mg PO ACHS tab 03/10/19 06/02/19 History sertraline 100 mg PO DAILY 03/21/19 06/02/19 History bupropion HCl 100 mg tablet,12 hr 100 mg PO DAILY ea 04/14/19 06/02/19 History sustained-release losartan 50 mg tablet 75 mg PO DAILY #90 tab 04/14/19 06/02/19 Rx aprepitant 80 mg capsule 80 mg PO DIRECTED PRN cap MDD 04/27/19 06/02/19 History 80 MG/WEEK carvedilol 25 mg tablet 50 mg PO BID #120 tab 04/27/19 06/02/19 Rx lorazepam 0.5 mg tablet 0.5 mg PO Q6H PRN 04/27/19 06/02/19 History ondansetron 4 mg disintegrating 4 mg PO Q6H PRN 04/27/19 06/02/19 History tablet insulin aspart U-100 100 100 See Rx Instructions SUBCUT UD ml 04/28/19 06/02/19 History unit/mL subcutaneous solution Contour Next Test Strips #240 ea NS 05/04/19 05/16/19 Rx Basaglar KwikPen U-100 Insulin 18 units SQ QAM 05/16/19 06/02/19 History calcium acetate See Rx Instructions .ROUTE .COMPLEX 05/31/19 06/02/19 History cholecalciferol (vitamin D3) 2,000 unit PO DAILY 05/31/19 06/02/19 History [Vitamin D3] Patient History Medical History CAD (coronary artery disease) mild, non-obstructive CAD per 10/2018 cardiac cath Depression Diabetes mellitus type I (Chronic) Diabetic neuropathy Diabetic retinopathy ESRD (end stage renal disease) Hemodialysis via permacath M,W,F (Follows with Dr. Taylor Higgins; [facility]) Gastroparesis (Chronic) Heart failure with reduced ejection fraction (Chronic) Hypertension Kidney stones Surgical History H/O shoulder surgery RIGHT History of appendectomy History of cardiac cath 10/2018= no stents, no obstructive disease (at [facility]) History of hip surgery LEFT HIP ARTHROSCOPY History of lithotripsy Nausea and vomiting after administration of anesthetic agent Permanent central venous catheter in place Permacath Family History Grandfather Myocardial infarction Grandfather (Maternal) Family history of diabetes mellitus Uncle Myocardial infarction Social History Preferred Language: Palestinian Communication Ability: Effective Visual Impairment: No Limitations Hearing Ability: Normal Plant Scientist Required: No Beliefs That Will Affect Care: None marital status: Current Living Situation: Other Current Living Situation Comment: CURRENT : [facility] current occupational status: unemployed Other Information That Helps Us Care for You: No Feels Safe at Home: Yes Safety Concerns: Feels Safe At This Time Smoking Status: Unknown if ever smoked Hx Alcohol Use: No Hx Substance Use: No Childhood Exposure to Second-Hand Smoke: Yes Dental Care, Regularly: No Physical Activity Frequency: 1-2 Times per Week Seatbelt Use: always Sunscreen Use: No Review of Systems Review of Systems: All systems reviewed & are unremarkable except as noted in HPI & below Cardiovascular: no chest pain, no dyspnea on exertion and no edema Gastrointestinal: cramping, pain , n, dry heaves earlier; controlled when I saw him Genitourinary: + problem reported (voids daily; no change to chronic voiding habits) Musculoskeletal: denies hip or other joint pain Physical Exam Constitutional: well developed, + thin and cooperative; no acute distress Eyes: EOM intact bilaterally ENMT: Ears: no external ear abnormality Nose: no external nose abnormality Mouth: + dry oral mucous membranes Neck: no nuchal rigidity Respiratory: normal respiratory effort Auscultation: lungs clear to auscultation bilaterally and + diminished lung sounds Cardiovascular: Rate/Rhythm: regular rate and regular rhythm Extremities: + AV fistula; no edema Gastrointestinal (Abdomen): Inspection/Auscultation: normal bowel sounds Percussion/Palpation: abdomen soft; abdomen nontender Musculoskeletal: Extremities: strength 5/5 throughout Skin: no rashes, warm and dry Neurologic: spicer, fluent speech, no tremor Psychiatric: A+Ox3, euthymic affect Speech: normal rate/rhythm/volume of speech Results & Data Vital Signs (Past 12 Hours) Vital Signs Temp Pulse Pulse Resp BP Pulse Ox 06/03/19 07:55 36.9 C 88 18 184/105 H 98 06/03/19 02:55 36.9 C 92 H 18 197/105 H 98 06/02/19 23:41 87 06/02/19 23:35 36.7 C 88 20 193/102 H 99 06/02/19 22:20 179/85 H 06/02/19 20:54 176/91 H Laboratory Results 06/03/19 06:33 06/03/19 06:33 Diagnostic Findings kub 1. No evidence for a bowel obstruction. 2. 6 mm right renal calculus.
[2019-06-03] MEDS ORDERED: HydrALAZINE HCL 20 MG/ML VIAL IV PRN (08:45)
[2019-06-03] MEDS: SERTRALINE HCL 100 MG TABLET PO SCH (08:46)
[2019-06-03] MEDS: LOSARTAN POTASSIUM 25 MG TAB PO SCH (08:46)
[2019-06-03] MEDS: ATORVASTATIN 10 MG TAB PO SCH (08:46)
[2019-06-03] MEDS: BuPROPion SR 100 MG TABCR PO SCH (08:46)
[2019-06-03] MEDS: CHOLECALCIFEROL 1,000 UNITS TAB PO SCH (08:46)
[2019-06-03] MEDS: NEPHROCAPS PO SCH (08:46)
[2019-06-03] MEDS: carvediloL 25 MG TAB PO SCH ×2 (08:46→16:45)
[2019-06-03] MEDS: INSULIN ASPART 100 UNITS/ML 3 ML PEN SC SCH ×4 (08:47→21:09)
[2019-06-03] MEDS: HEPARIN SOD 5,000 UNIT/0.5 ML VIAL SQ SCH ×2 (08:47→21:12)
[2019-06-03] MEDS: CALCIUM ACETATE 667 MG CAP PO SCH ×3 (08:47→16:45)
[2019-06-03] MEDS: INSULIN GLARGINE SOLOSTAR 100 UNITS/ML 3 ML PEN SQ SCH (08:48)
[2019-06-03] MEDS ORDERED: FAMOTIDINE 20 MG TAB PO SCH (09:00)
[2019-06-03] MEDS: HEPARIN SOD (PORCINE) 1000 UNIT/ML 10 ML VIAL IV SCH (10:02)
[2019-06-03] MEDS: HydrALAZINE HCL 20 MG/ML VIAL IV SCH ×2 (13:19→17:25)
--- NOTE | 2019-06-03 14:40 | Gastrointestinal Consultation ---
Date of Consultation June 03, 2019 Assessment & Plan (1) Intractable nausea and vomiting: Most likely seconary to gastroparesis with exacerbation from stress possibly explaining this admission. Pt doing well at present Gastroparesis--pt can follow up with [facility] ? splenic vein thrombosis on CT 01/2019 vs artifact--recommend Doppler of liver vessels at some point--could be done as outpt. Will order it in case it can be done prior to DC. History of Present Illness Reason for Consultation: n/v Requesting Physician: DR Rhett Gutierrez Attending Physician: Guevara Loomis MD History of Present Illness cc n/v HPI Pt with DM, ESRD on dialysis, gastroparesis with bouts of n/v requiring hopsitalization. Parents with patient and feel this attack may be stress as he is from his and this happended after his kids left. He does not have any outpt [facility] records as he follows with motility clinic at [facility]. He apparently has been on Emenda and Ativan in the past. His med list now has Zofran and Reglan on it. I did see an inpt EGD by DR Juárez 11/02/18 which showed possible esophageal candidiasis, o/w normal. KUb on admit 6 mm R renal calculus,. Head CT 03/31/19 neg. A/P CT 01/31/19 bladder wall thickening, artifact vs splenic vein thromobis. HIDA scan 12/2018 neg. Pt was in ER with n/v 05/31 and offered admit but received fluids and elected to go home. After going home had continued n/v and admitted 06/02. Pt denies abd pain. At time of H and P he was about senior living through eating solid lunch tolerating that well. Allergies Allergy/AdvReac Type Severity Reaction Status Date / Time shellfish derived Allergy Severe anaphylaxis Verified 06/02/19 15:12 codeine Allergy Intermediate Hives Verified 06/02/19 15:12 promethazine Allergy Intermediate itchy/hives Verified 06/02/19 15:12 Home Medications Home Medications Medication Instructions Recorded Confirmed Type [facility] Caps 1 cap PO DAILY 12/19/18 06/02/19 History atorvastatin 10 mg tablet 10 mg PO DAILY tab 01/06/19 06/02/19 History famotidine 20 mg tablet 20 mg PO 3XWK tab 03/10/19 06/02/19 History metoclopramide HCl 5 mg tablet 5 mg PO ACHS tab 03/10/19 06/02/19 History sertraline 100 mg PO DAILY 03/21/19 06/02/19 History bupropion HCl 100 mg tablet,12 hr 100 mg PO DAILY ea 04/14/19 06/02/19 History sustained-release losartan 50 mg tablet 75 mg PO DAILY #90 tab 04/14/19 06/02/19 Rx aprepitant 80 mg capsule 80 mg PO DIRECTED PRN cap MDD 04/27/19 06/02/19 History 80 MG/WEEK carvedilol 25 mg tablet 50 mg PO BID #120 tab 04/27/19 06/02/19 Rx lorazepam 0.5 mg tablet 0.5 mg PO Q6H PRN 04/27/19 06/02/19 History ondansetron 4 mg disintegrating 4 mg PO Q6H PRN 04/27/19 06/02/19 History tablet insulin aspart U-100 100 100 See Rx Instructions SUBCUT UD ml 04/28/19 06/02/19 History unit/mL subcutaneous solution Contour Next Test Strips #240 ea NS 05/04/19 05/16/19 Rx Basaglar KwikPen U-100 Insulin 18 units SQ QAM 05/16/19 06/02/19 History calcium acetate See Rx Instructions .ROUTE .COMPLEX 05/31/19 06/02/19 History cholecalciferol (vitamin D3) 2,000 unit PO DAILY 05/31/19 06/02/19 History [Vitamin D3] Patient History Medical History CAD (coronary artery disease) mild, non-obstructive CAD per 10/2018 cardiac cath Depression Diabetes mellitus type I (Chronic) Diabetic neuropathy Diabetic retinopathy ESRD (end stage renal disease) Hemodialysis via permacath M,W,F (Follows with Dr. Taylor Higgins; [facility]/[place]) Gastroparesis (Chronic) Heart failure with reduced ejection fraction (Chronic) Hypertension Kidney stones Surgical History H/O shoulder surgery RIGHT History of appendectomy History of cardiac cath 10/2018= no stents, no obstructive disease (at [facility]) History of hip surgery LEFT HIP ARTHROSCOPY History of lithotripsy Nausea and vomiting after administration of anesthetic agent Permanent central venous catheter in place Permacath Family History Grandfather Myocardial infarction Grandfather (Maternal) Family history of diabetes mellitus Uncle Myocardial infarction Social History Preferred Language: Cymraes Communication Ability: Effective Visual Impairment: No Limitations Hearing Ability: Normal Repairer Welding Systems And Equipment Required: No Beliefs That Will Affect Care: None marital status: Current Living Situation: Other Current Living Situation Comment: CURRENT : [facility] current occupational status: unemployed Other Information That Helps Us Care for You: No Feels Safe at Home: Yes Safety Concerns: Feels Safe At This Time Smoking Status: Unknown if ever smoked Hx Alcohol Use: No Hx Substance Use: No Childhood Exposure to Second-Hand Smoke: Yes Dental Care, Regularly: No Physical Activity Frequency: 1-2 Times per Week Seatbelt Use: always Sunscreen Use: No Review of Systems Review of Systems: All systems reviewed & are unremarkable except as noted in HPI & below Physical Exam Constitutional: WD/WN, vitals as above Eyes: PERRL, conjunctivae normal, anicteric sclerae ENMT: external ear and nose normal, oropharynx normal Neck: normal visual inspection and trachea midline Respiratory: normal respiratory effort, lungs clear to auscultation Cardiovascular: RRR, no murmur, no edema Gastrointestinal (Abdomen): normal bowel sounds, soft, nontender, no hepatosplenomegaly Neurologic: PERRL, EOMI, accommodation nl, no face palsy, no dysarthria Psychiatric: A+Ox3, euthymic affect Results & Data Vital Signs (Past 12 Hours) Vital Signs Temp Pulse Pulse Pulse Resp BP BP 06/03/19 13:20 36.6 C 73 121/65 06/03/19 13:00 73 85/52 L 06/03/19 12:41 73 101/54 L 06/03/19 12:22 72 89/49 L 06/03/19 11:50 78 83/46 L 06/03/19 11:20 76 86/53 L 06/03/19 11:00 76 98/57 L 06/03/19 10:40 78 111/72 06/03/19 10:20 82 127/70 06/03/19 10:00 81 141/82 H 06/03/19 09:40 82 159/80 H 06/03/19 09:20 82 175/94 H 06/03/19 09:05 82 173/94 H 06/03/19 09:00 36.5 C 85 06/03/19 08:15 82 06/03/19 07:55 36.9 C 88 18 184/105 H 06/03/19 02:55 36.9 C 92 H 18 197/105 H Pulse Ox 06/03/19 13:20 06/03/19 13:00 06/03/19 12:41 06/03/19 12:22 06/03/19 11:50 06/03/19 11:20 06/03/19 11:00 06/03/19 10:40 06/03/19 10:20 06/03/19 10:00 06/03/19 09:40 06/03/19 09:20 06/03/19 09:05 06/03/19 09:00 06/03/19 08:15 06/03/19 07:55 98 06/03/19 02:55 98
--- NOTE | 2019-06-03 19:03 | Dialysis Progress Note ---
Date of Service June 03, 2019 Assessment & Plan (1) ESRD (end stage renal disease): -finish routine HD today; next tx for 06/06 or as clinical needs dictate -access = TDC; has maturing AVF -continue binders, nephrocaps -agree w/ clear liquid diet and no fluid restriction for now (2) Hypertensive urgency: -dialysis will improve bp which is generally well controlled as OP -cont coreg 50 mg bid, losartan -- note though w/ n/v he may not keep these down, as hospitalist noted -will add IV hydralazine while having n/v standing and prn -should improve tx of N/V -has been running 170-210s past 12 hrs >> goal sbp today is 120-160s (3) Intractable nausea and vomiting: -challenging chronic condition w/ periodic flares; per primary service Subjective seen on dialysis at about 1025; bp remains elevated though improved; no active N or dry heaving at my eval. Review of Systems Review of Systems: All systems reviewed & are unremarkable except as noted in HPI & below Physical Exam Constitutional: well developed, + thin and cooperative; no acute distress Eyes: EOM intact bilaterally ENMT: Ears: no external ear abnormality Nose: no external nose abnormality Mouth: + dry oral mucous membranes Neck: no nuchal rigidity Respiratory: normal respiratory effort Auscultation: lungs clear to auscultation bilaterally and + diminished lung sounds Cardiovascular: Rate/Rhythm: regular rate and regular rhythm Extremities: + AV fistula; no edema Gastrointestinal (Abdomen): Inspection/Auscultation: normal bowel sounds Percussion/Palpation: abdomen soft; abdomen nontender Musculoskeletal: Extremities: strength 5/5 throughout Skin: no rashes, warm and dry Psychiatric: A+Ox3, euthymic affect Speech: normal rate/rhythm/volume of speech Results & Data Vital Signs (Past 12 Hours) Vital Signs Temp Pulse Pulse Pulse Resp BP BP 06/03/19 17:23 36.4 C L 76 20 160/81 H 06/03/19 15:27 36.9 C 72 20 147/75 H 06/03/19 13:20 36.6 C 73 121/65 06/03/19 13:00 73 85/52 L 06/03/19 12:41 73 101/54 L 06/03/19 12:22 72 89/49 L 06/03/19 11:50 78 83/46 L 06/03/19 11:20 76 86/53 L 06/03/19 11:00 76 98/57 L 06/03/19 10:40 78 111/72 06/03/19 10:20 82 127/70 06/03/19 10:00 81 141/82 H 06/03/19 09:40 82 159/80 H 06/03/19 09:20 82 175/94 H 06/03/19 09:05 82 173/94 H 06/03/19 09:00 36.5 C 85 06/03/19 08:15 82 06/03/19 07:55 36.9 C 88 18 184/105 H Pulse Ox 06/03/19 17:23 99 06/03/19 15:27 97 06/03/19 13:20 06/03/19 13:00 06/03/19 12:41 06/03/19 12:22 06/03/19 11:50 06/03/19 11:20 06/03/19 11:00 06/03/19 10:40 06/03/19 10:20 06/03/19 10:00 06/03/19 09:40 06/03/19 09:20 06/03/19 09:05 06/03/19 09:00 06/03/19 08:15 06/03/19 07:55 98
--- NOTE | 2019-06-03 21:52 | Hospitalist Progress Note ---
Date of Service June 03, 2019 Assessment & Plan (1) Gastroparesis: Patient has ongoing gastroparesis / cyclic vomiting syndrome. Previous issues with non-compliance but also clearly has longstanding autonomic dysfunction from poorly controlled T1DM while also on dialysis with controlled hypertension. Now N&V episode resolved will switch back to his outpatient metoclopramide regimen. Will avoid Compazine if possible due to risk of dystonia. Daily EKGs for QTc monitoring (2) ESRD (end stage renal disease): Appreciate nephrology management with dialysis (3) Type 1 diabetes: HbA1C in AM. Last performed in December. Will continue on 9 units of Lantus and give extra dose in AM if BSG start increasing. Novolog sliding scale (4) Hypertensive urgency: Appreciate renal management. Will switch to PO hydralazine to aim for discharge. (5) Discharge planning issues: Patient has had multiple admissions for the same. I'll be guided by patient and family to when they feel they can manage again at home. Subjective Patient seen after dialysis. Symptoms now completely resolved. This episode actually court monitor than others and more dry heaving than vomiting. Multiple admissions for similar presentations. When it starts he struggles to get take any pills. Tries Zofran ODT which is not effective. Feels compazine is most effective but does not have this at home. Suspect from risk of dystonia with concurrent use with metoclopramide. Currently tolerating all foods without is chucky. He and his family unable to link his episodes to certain foods or even dialysis sessions although he does note he always improves with dialysis. He was certainly was very uremic on this occasion although this is not always the case looking through prior admissions. He does not correlate his episodes with hypertension although this correlation has been noted on prior admissions. Review of Systems Review of Systems: All systems reviewed & are unremarkable except as noted in HPI & below Physical Exam Constitutional: + thin; no acute distress Eyes: + anicteric sclerae; normal pupil size ENMT: external ear and nose normal, oropharynx normal Neck: trachea midline Respiratory: normal respiratory effort, lungs clear to auscultation Cardiovascular: RRR, no murmur, no edema Gastrointestinal (Abdomen): Percussion/Palpation: abdomen soft; abdomen nontender, no guarding and abdomen not rigid Neurologic: moves all extremities and awake; not confused Psychiatric: A+Ox3, euthymic affect Results & Data Vital Signs (Past 12 Hours) Vital Signs Temp Pulse Pulse Resp BP BP Pulse Ox 06/03/19 19:46 36.8 C 78 18 104/61 95 06/03/19 17:23 36.4 C L 76 20 160/81 H 99 06/03/19 15:27 36.9 C 72 20 147/75 H 97 06/03/19 13:20 36.6 C 73 121/65 06/03/19 13:00 73 85/52 L 06/03/19 12:41 73 101/54 L 06/03/19 12:22 72 89/49 L 06/03/19 11:50 78 83/46 L 06/03/19 11:20 76 86/53 L 06/03/19 11:00 76 98/57 L 06/03/19 10:40 78 111/72 06/03/19 10:20 82 127/70 06/03/19 10:00 81 141/82 H PG Care Time/CCT Total # of Minutes Spent Total Time Spent with Patient: Total time spent is greater than 50% in coordination of care (as documented) at patient's floor/unit and/or counseling patient: (1) Type 1 diabetes Diabetes mellitus complication status: with other specified complication Qualified Code(s): E10.69 - Type 1 diabetes mellitus with other specified complication
[2019-06-04] MEDS: METOCLOPRAMIDE HCL INJ 5 MG/ML 2 ML VIAL IV SCH (02:21)
[2019-06-04] MEDS: METOCLOPRAMIDE HCL 5 MG TABLET PO SCH ×2 (08:44→11:34)
[2019-06-04] MEDS: CALCIUM ACETATE 667 MG CAP PO SCH ×2 (08:44→11:34)
[2019-06-04] MEDS: carvediloL 25 MG TAB PO SCH (08:44)
[2019-06-04] MEDS: LOSARTAN POTASSIUM 25 MG TAB PO SCH (08:44)
[2019-06-04] MEDS: SERTRALINE HCL 100 MG TABLET PO SCH (08:45)
[2019-06-04] MEDS: INSULIN GLARGINE SOLOSTAR 100 UNITS/ML 3 ML PEN SQ SCH (08:45)
[2019-06-04] MEDS: ATORVASTATIN 10 MG TAB PO SCH (08:45)
[2019-06-04] MEDS: NEPHROCAPS PO SCH (08:45)
[2019-06-04] MEDS: BuPROPion SR 100 MG TABCR PO SCH (08:45)
[2019-06-04] MEDS: HEPARIN SOD 5,000 UNIT/0.5 ML VIAL SQ SCH (08:45)
[2019-06-04] MEDS: CHOLECALCIFEROL 1,000 UNITS TAB PO SCH (08:45)
[2019-06-04] MEDS: INSULIN ASPART 100 UNITS/ML 3 ML PEN SC SCH ×2 (08:46→12:30)
[2019-06-04] MEDS ORDERED: INSULIN GLARGINE SOLOSTAR 100 UNITS/ML 3 ML PEN SC ONE (08:53)
[2019-06-04 09:07] LABS: Estimated Average Glucose 143 mg/dl; Hemoglobin A1C 6.6 % (4.5-5.6)
[2019-06-04 09:11] LABS: Basophils # (auto) 0.04 K/uL (0-0.2); Basophils % (auto) 0.5 %; Eosinophils # (auto) 0.06 K/uL (0-0.5); Eosinophils % (auto) 0.7 %; Hematocrit (blood only) 40.9 % (42-52); Hemoglobin 13.3 g/dL (14.0-18.0); Immature Granulocytes # (auto) 0.01 K/uL (0.00-0.02); Immature Granulocytes % (auto) 0.1 %; Lymphocytes # (auto) 1.58 K/uL (1.2-3.4); Lymphocytes % (auto) 18.8 %; Mean Corpuscular Hemoglobin 31.8 pg (25-34); Mean Corpuscular Volume 97.8 fL (80-100); Mean Platelet Volume 9.9 fL (7.4-10.4); Monocytes # (auto) 1.03 K/uL (0.11-0.59); Monocytes % (auto) 12.2 %; Neutrophils # (auto) 5.69 K/uL (1.4-6.5); Neutrophils % (auto) 67.7 %; Platelet Count 227 K/uL (130-400); RDW Coefficient of Variation 13.8 % (11.5-14.5); RDW Standard Deviation 48.9 fL (36.4-46.3); Red Blood Count 4.18 M/uL (4.7-6.1); White Blood Count 8.41 K/uL (4.8-10.8)
[2019-06-04 09:12] LABS: Mean Corpuscular Hgb Conc 32.5 g/dL (32-36)
[2019-06-04 09:17] LABS: Alanine Aminotransferase 30 U/L (12-78); Albumin Level 3.4 gm/dl (3.4-5.0); Alkaline Phosphatase 125 U/L (45-117); Aspartate Aminotransferase 18 U/L (15-37); BUN Creatinine Ratio 9.7 (10-20); Bilirubin,Total 0.3 mg/dl (0.2-1); Blood Urea Nitrogen 62 mg/dl (7-18); Calcium 8.2 mg/dl (8.5-10.1); Carbon Dioxide 21 mmol/L (21-32); Chloride 96 mmol/L (98-107); Creatinine Clr Calc Pharmacy 12.2 ml/min; Est GFR (African American) 10.9; Est GFR (Non-African American) 9.4; Globulin 3.3 gm/dl (2.5-4.0); Glucose 378 mg/dl (70-99); Potassium 4.2 mmol/L (3.5-5.1); Sodium 130 mmol/L (136-145); Total Protein 6.7 gm/dl (6.4-8.2)
--- NOTE | 2019-06-04 10:54 | Nephrology Progress Note ---
Date of Service June 04, 2019 Assessment & Plan (1) ESRD (end stage renal disease): -Patient tolerated HD yesterday; next tx for 06/06 or as clinical needs dictate -access = TDC; has maturing AVF -continue binders, nephrocaps -agree w/ clear liquid diet and no fluid restriction for now -From renal standpoint, patient can be discharged to continue dialysis outpatient. (2) Hypertensive urgency: -BP is better today -cont coreg 50 mg bid, losartan -- note though w/ n/v he may not keep these down, as hospitalist noted -will add IV hydralazine while having n/v standing and prn -should improve tx of N/V -has been running 170-210s past 12 hrs >> goal sbp today is 120-160s (3) Intractable nausea and vomiting: -challenging chronic condition w/ periodic flares; per primary service Subjective Patient on dialysis yesterday. He feels better today denies any shortness of breath or dizziness. No vomiting or diarrhea. Review of Systems Review of Systems: All systems reviewed & are unremarkable except as noted in HPI & below Physical Exam Physical Exam: General exam: Appears comfortable, no acute distress HEENT: Pupils are equal and reactive to light Neck: No JVD, neck is supple trachea is midline Respiratory system: Clear breath sounds bilaterally. Gastrointestinal: Abdomen is soft, non distended, non tender, bowel sounds are present CVS: Regular rate and rhythm. No murmurs, rubs or gallops Musculoskeletal: No joint or muscle tenderness Extremities: Non tender, no edema, peripheral pulses are present Neuro: Oriented, no tremors, no focal neurological deficits Skin: No rashes Access: AV fistula in the left arm and tunneled CVC Results & Data Vital Signs (Past 12 Hours) Vital Signs Temp Pulse Pulse Resp BP Pulse Ox 06/04/19 07:17 36.8 C 79 16 164/82 H 96 06/03/19 23:34 36.2 C L 84 18 119/62 95 Laboratory Results Laboratory Results - last 24 hr 06/03/19 06/03/19 06/03/19 13:23 16:10 20:09 WBC RBC Hgb Hct MCV MCH MCHC RDW Std Deviation RDW Coeff of Kami Plt Count MPV Immature Gran % (Auto) Neut % (Auto) Lymph % (Auto) Hartley % (Auto) Eos % (Auto) Baso % (Auto) Immature Gran # (Auto) Neut # (Auto) Lymph # (Auto) Hartley # (Auto) Eos # (Auto) Baso # (Auto) Absolute Nucleated RBC Nucleated RBC % (auto) Neutrophils % (Manual) Band Neutrophils % Lymphocytes % (Manual) Prolymphocyte % Reactive Lymphs % (Man) Monocytes % (Manual) Eosinophils % (Manual) Basophils % (Manual) Metamyelocytes % (Man) Myelocytes % (Man) Promyelocytes % (Man) Blast Cells % (Manual) Plasma Cell % (Manual) Other Cells % Nucleated RBC % Neutrophils # (Manual) Band Neutrophils # Total Absolute Neuts Lymphocytes # (Manual) Prolymphocyte # Reactive Lymphs # Total Abs Lymphocytes Monocytes # (Manual) Eosinophils # (Manual) Basophils # (Manual) Metamyelocytes # (Man) Myelocytes # (Manual) Promyelocytes # (Man) Blast Cells # (Man) Plasma Cell # (Manual) Other Cells # Nucleated RBCs # (Man) Hypersegmented Neuts Hyposegmented Neuts Hypogranular Neuts Large Granular Lymphs # Lrg Granular Lymphs Hairy Cells Smudge Cells Toxic Granulation Toxic Vacuolation Dohle Bodies Jennifer Rods Platelet Estimate Hypogranular Platelets Clumped Platelets Giant Platelets Platelet Satelliting RBC Morphology Polychromasia Hypochromasia Poikilocytosis Basophilic Stippling Anisocytosis Microcytosis Macrocytosis Spherocytes Pappenheimer Bodies Sickle Cells Target Cells Tear Drop Cells Ovalocytes Stomatocytes Avila-Clinton Bodies Echinocytes Acanthocytes (Spur) Rouleaux RBC Agglutinates Schistocytes RBC Morph Comment Sezary Cell Sodium Potassium Chloride Carbon Dioxide Anion Gap BUN Creatinine Est Cr Clr Drug Dosing Est GFR ( Amer) Est GFR (Non-Af Amer) BUN/Creatinine Ratio Glucose POC Glucose 71 93 171 H Estimat Average Glucose Hemoglobin A1c Calcium Total Bilirubin AST ALT Alkaline Phosphatase Total Protein Albumin Globulin Albumin/Globulin Ratio Beta-Hydroxybutyric Acd 06/04/19 06/04/19 06/04/19 07:25 07:27 08:30 WBC RBC Hgb Hct MCV MCH MCHC RDW Std Deviation RDW Coeff of Kami Plt Count MPV Immature Gran % (Auto) Neut % (Auto) Lymph % (Auto) Hartley % (Auto) Eos % (Auto) Baso % (Auto) Immature Gran # (Auto) Neut # (Auto) Lymph # (Auto) Hartley # (Auto) Eos # (Auto) Baso # (Auto) Absolute Nucleated RBC Nucleated RBC % (auto) Neutrophils % (Manual) Band Neutrophils % Lymphocytes % (Manual) Prolymphocyte % Reactive Lymphs % (Man) Monocytes % (Manual) Eosinophils % (Manual) Basophils % (Manual) Metamyelocytes % (Man) Myelocytes % (Man) Promyelocytes % (Man) Blast Cells % (Manual) Plasma Cell % (Manual) Other Cells % Nucleated RBC % Neutrophils # (Manual) Band Neutrophils # Total Absolute Neuts Lymphocytes # (Manual) Prolymphocyte # Reactive Lymphs # Total Abs Lymphocytes Monocytes # (Manual) Eosinophils # (Manual) Basophils # (Manual) Metamyelocytes # (Man) Myelocytes # (Manual) Promyelocytes # (Man) Blast Cells # (Man) Plasma Cell # (Manual) Other Cells # Nucleated RBCs # (Man) Hypersegmented Neuts Hyposegmented Neuts Hypogranular Neuts Large Granular Lymphs # Lrg Granular Lymphs Hairy Cells Smudge Cells Toxic Granulation Toxic Vacuolation Dohle Bodies Jennifer Rods Platelet Estimate Hypogranular Platelets Clumped Platelets Giant Platelets Platelet Satelliting RBC Morphology Polychromasia Hypochromasia Poikilocytosis Basophilic Stippling Anisocytosis Microcytosis Macrocytosis Spherocytes Pappenheimer Bodies Sickle Cells Target Cells Tear Drop Cells Ovalocytes Stomatocytes Avila-[place] Bodies Echinocytes Acanthocytes (Spur) Rouleaux RBC Agglutinates Schistocytes RBC Morph Comment Sezary Cell Sodium Potassium Chloride Carbon Dioxide Anion Gap BUN Creatinine Est Cr Clr Drug Dosing Est GFR ( Amer) Est GFR (Non-Af Amer) BUN/Creatinine Ratio Glucose POC Glucose 325 H* 378 H* Estimat Average Glucose 143 Hemoglobin A1c 6.6 H Calcium Total Bilirubin AST ALT Alkaline Phosphatase Total Protein Albumin Globulin Albumin/Globulin Ratio Beta-Hydroxybutyric Acd 06/04/19 06/04/19 06/04/19 08:30 08:30 09:04 WBC Cancelled 8.41 RBC Cancelled 4.18 L Hgb Cancelled 13.3 L Hct Cancelled 40.9 L MCV Cancelled 97.8 MCH Cancelled 31.8 MCHC Cancelled 32.5 RDW Std Deviation Cancelled 48.9 H RDW Coeff of Kami Cancelled 13.8 Plt Count Cancelled 227 MPV Cancelled 9.9 Immature Gran % (Auto) Cancelled 0.1 Neut % (Auto) Cancelled 67.7 Lymph % (Auto) Cancelled 18.8 Hartley % (Auto) Cancelled 12.2 Eos % (Auto) Cancelled 0.7 Baso % (Auto) Cancelled 0.5 Immature Gran # (Auto) Cancelled 0.01 Neut # (Auto) Cancelled 5.69 Lymph # (Auto) Cancelled 1.58 Hartley # (Auto) Cancelled 1.03 H Eos # (Auto) Cancelled 0.06 Baso # (Auto) Cancelled 0.04 Absolute Nucleated RBC Cancelled Nucleated RBC % (auto) Cancelled Neutrophils % (Manual) Cancelled Band Neutrophils % Cancelled Lymphocytes % (Manual) Cancelled Prolymphocyte % Cancelled Reactive Lymphs % (Man) Cancelled Monocytes % (Manual) Cancelled Eosinophils % (Manual) Cancelled Basophils % (Manual) Cancelled Metamyelocytes % (Man) Cancelled Myelocytes % (Man) Cancelled Promyelocytes % (Man) Cancelled Blast Cells % (Manual) Cancelled Plasma Cell % (Manual) Cancelled Other Cells % Cancelled Nucleated RBC % Cancelled Neutrophils # (Manual) Cancelled Band Neutrophils # Cancelled Total Absolute Neuts Cancelled Lymphocytes # (Manual) Cancelled Prolymphocyte # Cancelled Reactive Lymphs # Cancelled Total Abs Lymphocytes Cancelled Monocytes # (Manual) Cancelled Eosinophils # (Manual) Cancelled Basophils # (Manual) Cancelled Metamyelocytes # (Man) Cancelled Myelocytes # (Manual) Cancelled Promyelocytes # (Man) Cancelled Blast Cells # (Man) Cancelled Plasma Cell # (Manual) Cancelled Other Cells # Cancelled Nucleated RBCs # (Man) Cancelled Hypersegmented Neuts Cancelled Hyposegmented Neuts Cancelled Hypogranular Neuts Cancelled Large Granular Lymphs Cancelled # Lrg Granular Lymphs Cancelled Hairy Cells Cancelled Smudge Cells Cancelled Toxic Granulation Cancelled Toxic Vacuolation Cancelled Dohle Bodies Cancelled Jennifer Rods Cancelled Platelet Estimate Cancelled Hypogranular Platelets Cancelled Clumped Platelets Cancelled Giant Platelets Cancelled Platelet Satelliting Cancelled RBC Morphology Cancelled Polychromasia Cancelled Hypochromasia Cancelled Poikilocytosis Cancelled Basophilic Stippling Cancelled Anisocytosis Cancelled Microcytosis Cancelled Macrocytosis Cancelled Spherocytes Cancelled Pappenheimer Bodies Cancelled Sickle Cells Cancelled Target Cells Cancelled Tear Drop Cells Cancelled Ovalocytes Cancelled Stomatocytes Cancelled Avila-[place] Bodies Cancelled Echinocytes Cancelled Acanthocytes (Spur) Cancelled Rouleaux Cancelled RBC Agglutinates Cancelled Schistocytes Cancelled RBC Morph Comment Cancelled Sezary Cell Cancelled Sodium 130 L Potassium 4.2 Chloride 96 L Carbon Dioxide 21 Anion Gap 13.0 H BUN 62 H Creatinine 6.37 H* D Est Cr Clr Drug Dosing 12.2 Est GFR ( Amer) 10.9 Est GFR (Non-Af Amer) 9.4 BUN/Creatinine Ratio 9.7 L Glucose 378 H* POC Glucose Estimat Average Glucose Hemoglobin A1c Calcium 8.2 L Total Bilirubin 0.3 AST 18 ALT 30 Alkaline Phosphatase 125 H Total Protein 6.7 Albumin 3.4 Globulin 3.3 Albumin/Globulin Ratio 1.0 Beta-Hydroxybutyric Acd TNP
--- NOTE | 2019-06-07 18:23 | Discharge Summary ---
Date of Service June 04, 2019 Admission HPI Per Admitting Provider This is a 48-year-old male with past medical history of brittle diabetes mellitus, end-stage renal disease on hemodialysis, and gastroparesis who presents today with intractable nausea vomiting. Patient does not really communicate with treatment with me as he appears very uncomfortable. There is another gentleman in the room who is able to give much more history. Patient apparently has been having several days worth of significant nausea and vomiting, consistent with his gastroparesis. He was actually seen in the emergency room on 05/31 and was offered admission at that time but improved with fluids and medication and decided to go home. However, several hours after returning home he started having significant more problems. The gentleman the room tells me that he tries Ativan, Reglan, and Emend which have not helped at all. He did tolerate a very small amount of an Kinyarwanda muffin this morning. His last bowel movement was 2 days ago. He is having no abdominal pain, fever, chills, or other symptoms at this time. Patient does appear to have ongoing nausea with dry heaving at this point and minimal gastric juices as vomitus. Patient typically gets hemodialysis at [facility], follows with Dr. Higgins. He also follows at the GI motility clinic in [place]. Admission Exam Per Admitting Provider Constitutional: + ill appearing and average body habitus Respiratory: Auscultation: lungs clear to auscultation bilaterally; no crackles, no rales, no rhonchi and no wheezes Cardiovascular: Rate/Rhythm: regular rhythm and + tachycardic Heart Sounds: normal S1 and normal S2 Gastrointestinal (Abdomen): Percussion/Palpation: abdomen soft; abdomen nontender, no guarding and abdomen not rigid Very diminished bowel sounds Musculoskeletal: no cyanosis or clubbing, extremities motor strength 5/5 Skin: no rashes, warm and dry Principal Diagnosis Intractable nausea and vomiting Hypertensive Urgency Gastroparesis Discharge Exam Constitutional + thin; no acute distress Eyes + anicteric sclerae; normal pupil size ENMT external ear and nose normal, oropharynx normal Neck trachea midline Respiratory normal respiratory effort, lungs clear to auscultation Cardiovascular RRR, no murmur, no edema Gastrointestinal (Abdomen) Percussion/Palpation: abdomen soft; abdomen nontender, no guarding and abdomen not rigid Neurologic moves all extremities and awake; not confused Psychiatric A+Ox3, euthymic affect Discharge Data Allergies Allergy/AdvReac Type Severity Reaction Status Date / Time shellfish derived Allergy Severe anaphylaxis Verified 06/02/19 15:12 codeine Allergy Intermediate Hives Verified 06/02/19 15:12 promethazine Allergy Intermediate itchy/hives Verified 06/02/19 15:12 Consultations 06/02/19 15:59 ED Decision to Admit Stat 06/02/19 19:32 Consult Nephrology Routine 06/03/19 09:12 Consult Gastroenterology Routine Hospital Course (1) Gastroparesis: Jorge Alberto De Los Santos is a 48 year old male with recurrent admission for intractable nausea and vomiting. He was observed at [facility] from June 02 to 2018 due to the same with hypertensive urgency (suspect due to missing medications because of the vomiting). He has known gastroparesis and is under motility clinic therefore no medications were changed in relation to this. He was treated with intravenous antiemetics (compazine and metoclopramide) and underwent his usual dialysis which helped with his blood pressure. Discussed with nephrology and recommended adding hydralazine to his medication regimen on days he does not have dialysis. He will follow up with his PCP and motility clinic. (2) ESRD (end stage renal disease): (3) Type 1 diabetes: (4) Hypertensive urgency: Total Time Total Time Spent Total Time Spent (In Minutes): 45 Total Time Includes: Examination of the Patient, Discharge Planning, Medication Reconciliation and Communication With Other Providers Discharge Plan Discharge Items Patient Disposition: Home - Self-Care Reason For Visit: GASTROPARESIS,HTN URGENCY Discharge Diagnosis: Hypertensive Urgency Gastroparesis Activity: Resume your previous activity Non-emergency contact: Primary Care Provider Call non-emergency contact if: you have any medication questions, your symptoms worsen and your temperature is above 101 Follow-up/Referrals: Cory Celestin MD [Primary Care Provider] - Diet: Carb Count or DM1 Addtl Attending Provider Instructions: You were observed at [facility] from June 02 to 2018 due to intractable nausea and vomiting with hypertensive urgency. For this you were treated with intravenous antiemetics and you underwent dialysis as routinely scheduled. Hydralazine recommended to add to you hypertension regimen but you should not take this on dialysis days. Please follow up with your motility clinic regarding your gastroparesis. Consider clonidine at the onset of symptoms, not started at this time due to concerns of autonomic dysfunction and recommend this is started by your outpatient providers if required. No other medication changes were made at this time. Kind regards, Dr Guevara Loomis Pending Studies at Discharge: No Stand-Alone Forms: [facility], Smoking Cessation Medications and DC Order Prescriptions: New hydralazine 25 mg tablet 25 mg PO TID Qty: 90 RF: 0 Continued bupropion HCl 100 mg tablet sustained-release 12 hr 100 mg PO DAILY RF: 0 losartan 50 mg tablet 75 mg PO DAILY Qty: 90 RF: 1 (DME) Contour Next Test Strips strip See Dose Instructions .ROUTE .MEDSUPPLY Qty: 240 RF: 5 famotidine 20 mg tablet 20 mg PO 3XWK RF: 0 ondansetron 4 mg tablet,disintegrating 4 mg PO Q6H PRN (Reason: Nausea And Vomiting) RF: 0 aprepitant 80 mg capsule 80 mg PO DIRECTED MDD 80 MG/WEEK PRN (Reason: Nausea And Vomiting) RF: 0 carvedilol 25 mg tablet 50 mg PO BID Qty: 120 RF: 2 Basaglar KwikPen U-100 Insulin 100 unit/mL (3 mL) insulin pen 18 units SQ QAM RF: 0 atorvastatin 10 mg tablet 10 mg PO DAILY RF: 0 metoclopramide HCl 5 mg tablet 5 mg PO ACHS RF: 0 [place] Caps 1 mg capsule 1 cap PO DAILY RF: 0 sertraline 100 mg tablet 100 mg PO DAILY RF: 0 lorazepam 0.5 mg tablet 0.5 mg PO Q6H PRN (Reason: Anxiety) RF: 0 calcium acetate 667 mg capsule See Rx Instructions .ROUTE .COMPLEX RF: 0 cholecalciferol (vitamin D3) [Vitamin D3] 50 mcg (2,000 unit) capsule 2,000 unit PO DAILY RF: 0 No Action Novolog U-100 Insulin aspart 100 unit/mL solution See Rx Instructions SUBCUT UD Qty: 10 RF: 2 Discharge Orders: Discharge Order (Routine); Ordered 06/04/19 Ordered By: Guevara Loomis Admission Data Admit Date/Time: 06/02/19 16:45 Attending Provider: Guevara Loomis Admit Provider: Rhett Gutierrez Primary Care Provider: Cory Celestin Other Providers: Rhett Gutierrez ; Lor Guadalupe ; Terrance Ordaz Other Interventions: Discharge Summary Assessment (RN) Last Done: 06/04/19 14:48 DC Date/Time DO NOT enter until pt leaves facility: 06/04/19 15:24
== END 2019-06-04 15:24 | disposition home or self-care (01) ==
LOC: ED 13:41 → 2E 13:41 → SUATTDRO 16:45 → 2E 18:52 → 2W 06-03 15:46

== ENCOUNTER 2019-07-13 18:27 | Inpatient (IN) ==
[2019-07-13] MEDS ORDERED: METOCLOPRAMIDE HCL INJ 5 MG/ML 2 ML VIAL IV STA (18:38)
[2019-07-13] MEDS ORDERED: ONDANSETRON INJ 2 MG/ML 2 ML VIAL IV STA ×2 (18:38→20:30)
[2019-07-13] MEDS ORDERED: SODIUM CHLORIDE 0.9% 1000ML 1,000 ML IV SCH (18:45)
[2019-07-13 20:06] LABS: Basophils # (auto) 0.04 K/uL (0-0.2); Basophils % (auto) 0.4 %; Eosinophils # (auto) 0.05 K/uL (0-0.5); Eosinophils % (auto) 0.5 %; Hematocrit (blood only) 37.5 % (42-52); Hemoglobin 12.8 g/dL (14.0-18.0); Immature Granulocytes # (auto) 0.02 K/uL (0.00-0.02); Immature Granulocytes % (auto) 0.2 %; Lymphocytes # (auto) 1.07 K/uL (1.2-3.4); Lymphocytes % (auto) 11.6 %; Mean Corpuscular Hemoglobin 31.8 pg (25-34); Mean Corpuscular Hgb Conc 34.1 g/dL (32-36); Mean Corpuscular Volume 93.1 fL (80-100); Mean Platelet Volume 8.1 fL (7.4-10.4); Monocytes # (auto) 0.99 K/uL (0.11-0.59); Monocytes % (auto) 10.7 %; Neutrophils # (auto) 7.06 K/uL (1.4-6.5); Neutrophils % (auto) 76.6 %; Platelet Count 281 K/uL (130-400); RDW Coefficient of Variation 14.9 % (11.5-14.5); RDW Standard Deviation 48.6 fL (36.4-46.3); Red Blood Count 4.03 M/uL (4.7-6.1); White Blood Count 9.23 K/uL (4.8-10.8)
[2019-07-13 20:26] LABS: Albumin Level 3.9 gm/dl (3.4-5.0); BUN Creatinine Ratio 3.7 (10-20); Calcium 8.9 mg/dl (8.5-10.1); Creatinine Clr Calc Pharmacy 23.8 ml/min; Est GFR (African American) 22.4; Est GFR (Non-African American) 19.3; Potassium 3.3 mmol/L (3.5-5.1)
[2019-07-13 20:29] LABS: Albumin Globulin Ratio 1.1 (0.9-2); Bilirubin,Total 0.5 mg/dl (0.2-1); Globulin 3.5 gm/dl (2.5-4.0); Total Protein 7.4 gm/dl (6.4-8.2)
[2019-07-13] MEDS ORDERED: LABETALOL HCL IV 5 MG/ML 20ML IV STA ×2 (20:30→21:39)
--- NOTE | 2019-07-13 21:09 | XRay Report ---
XR chest 1V portable CLINICAL HISTORY: VOMITING COMPARISON STUDY: Chest radiograph May 31, 2019. FINDINGS: Right internal jugular dual lumen catheter is in place. There is no pneumothorax or pleural effusion. Mild cardiomegaly is noted without evidence for pulmonary edema. There is mild left basila r opacity. IMPRESSION: 1. Mild left basilar opacity. Atelectasis is favored however an infectious process could appear simil ar. 2. Mild cardiomegaly without evidence for pulmonary edema. ACT 112: Negative or not required by law. Electronically signed by: Gabino Cool M.D. 07/13/2019 9:08 PM
--- NOTE | 2019-07-13 22:23 | History & Physical Report ---
Date of Service July 13, 2019 Assessment & Plan (1) Intractable nausea and vomiting: Jorge Alberto De Los Santos is a 48-year-old male with past medical history of brittle diabetes mellitus, end-stage renal disease on hemodialysis, and gastroparesis who presents today with intractable nausea vomiting. - Known gastroparesis with multiple admissions here and in [facility], typically resolves after 48hrs IVF & meds - Zofran 4mg IV PRN q6h; Reglan 10mg IV PRN q6h with Benadryl 50mg IV PRN ordered if experiencing dystonia/tardive dyskinesia - Gentle IVF in setting of ESRD on dialysis NS @ 80ml/hr - NPO, aspiration precautions - GI consulted appreciate recs - Trend electrolytes in setting of active vomiting and recent colonoscopy requiring bowel prep - Hold home PO meds and restart once able to tolerate PO intake Code: Full DVT ppx: SCDs FENGI: NPO, will start diet once able to tolerate PO intake, Pepcid 20mg IV ordered, notes to take q2day Dispo: Full admit expect to be here over two midnights, PCU/tele (2) Hypertensive urgency: BPs in ED 190s-230/90-100, in setting of not being able to tolerate home BP meds PO because of N/V was given Labetalol 10mg IV in ED x 2 Will continue with Labetalol 10mg IV PRN for Systolic > 180 Will consider Hydralazine 10mg IV if needed if not improving with Labetalol. (3) Gastroparesis: Most likely cause of recurring N/V from DM damage to vagal nerves treatment noted as above (4) Acute hyponatremia: Mild in ED 134 Received 1L NSS Bolus in ED Gentle hydration with NSS 80ml/hr Trend in AM (5) Acute hypokalemia: In setting of GI loses from vomiting and also recent colonoscopy requiring bowel prep Although ESRD will give potassium 20meq IV as prior hx of heart disease and active further vomiting Review of old EMR showed no prior hyperkalemic crisis (6) Diabetes mellitus type I: Noted to be brittle diabetic and thus will consult Pharmacy to help with management as NPO Recent A1C from End of May 2019 noted to be at goal 6.6% (7) ESRD on dialysis: Gets dialysis MWF at [facility], follows with Dr. Higgins Consulted as expect will need while inpatient (8) Depression: unable to tolerate PO intake and will hold SSRI, okay to resume once able to tolerate PO History of Present Illness Chief Complaint: Intractable N/V; HTN Urgency Primary Care Provider: Abbi Ames MD Jorge Alberto De Los Santos is a 48-year-old male with past medical history of brittle diabetes mellitus, end-stage renal disease on hemodialysis, and gastroparesis who presents today with intractable nausea vomiting. He notes onset of N/V around 2:30pm today with about 10 episodes of Vomiting not relieved with outpatient medications. He notes having a colonoscopy performed earlier today as well as having dialysis today as well. He notes feeling at baseline this morning and denies any recent illness. He denies stomach pains, chest pains, abdominal pain, fever, chills. He has had numerous admissions for same. In the ED, his BP was found to be elevated 190-230s/90-100. He was treated with L abetalol 10mg IV x2, Reglan 10mg IV x1, Zofran 4mg IV x2, and NSS 1L Bolus. Family member notes usually symptoms typically last for 48 hours after start of treatment. Patient typically gets hemodialysis at [facility], follows with Dr. Higgins. He also follows at the GI motility clinic in [place]. Allergies Allergy/AdvReac Type Severity Reaction Status Date / Time shellfish derived Allergy Severe anaphylaxis Verified 07/13/19 14:46 codeine Allergy Intermediate Hives Verified 07/13/19 14:46 promethazine Allergy Intermediate itchy/hives Verified 07/13/19 14:46 Home Medications Home Medications Medication Instructions Recorded Confirmed Type Wasatch Caps 1 cap PO QAM 12/19/18 07/13/19 History sertraline 100 mg PO QAM 03/21/19 07/13/19 History bupropion HCl 100 mg tablet,12 hr 100 mg PO QAM ea 04/14/19 07/13/19 History sustained-release lorazepam 0.5 mg tablet 0.5 mg PO Q6H PRN 04/27/19 07/13/19 History ondansetron 4 mg disintegrating 4 mg PO Q6H PRN 04/27/19 07/13/19 History tablet Contour Next Test Strips #240 ea NS 05/04/19 07/05/19 Rx Basaglar KwikPen U-100 Insulin 18 units SQ QAM 05/16/19 07/13/19 History calcium acetate 667 mg PO DIRECTED MDD 7 05/31/19 07/13/19 History CAPSULES/DAILY famotidine 20 mg tablet 20 mg PO 3XWK #90 tab 06/10/19 07/13/19 Rx carvedilol 25 mg tablet 25 mg PO BID tab 06/16/19 07/13/19 History amlodipine 10 mg PO QAM 06/21/19 07/13/19 History atorvastatin 10 mg PO QAM 06/21/19 07/13/19 History losartan 75 mg PO QAM 06/21/19 07/13/19 History metoclopramide HCl 5 mg PO ACHS 06/21/19 07/13/19 History BD Ultra-Fine Annalise Pen Needle 32 #800 ea NS 07/11/19 Rx gauge x 5/32" acetaminophen [Acetaminophen Extra 500 mg PO Q6H PRN MDD 3000 MG/DAY 07/13/19 07/13/19 History Strength] polyethylene glycol 3350 17 g PO DAILY 07/13/19 07/13/19 History sennosides-docusate sodium [Senna 1 tab-cap PO BID 07/13/19 07/13/19 History with Docusate Sodium] Past Med/Surg History Medical History Anxiety AV fistula left arm CAD (coronary artery disease) mild, non-obstructive CAD per 10/2018 cardiac cath> FOLLOWS [facility] Depression Diabetes mellitus type I (Chronic) Diabetic neuropathy Diabetic retinopathy ESRD (end stage renal disease) Hemodialysis via permacath RIGHT CHEST M,W,F (Follows with Dr. Taylor Higgins; [facility]) Gastroparesis (Chronic) GERD (gastroesophageal reflux disease) Heart failure with reduced ejection fraction (Chronic) Hypertension Kidney stones Surgical History H/O shoulder surgery RIGHT History of appendectomy History of cardiac cath 10/2018= no stents, no obstructive disease (at [facility]) History of esophagogastroduodenoscopy (EGD) History of hip surgery LEFT HIP ARTHROSCOPY History of lithotripsy History of open reduction and internal fixation (ORIF) procedure right hip Nausea and vomiting after administration of anesthetic agent Permanent central venous catheter in place Permacath S/P arteriovenous (AV) fistula creation left arm Family History Grandfather Myocardial infarction Grandfather (Maternal) Family history of diabetes mellitus Uncle Myocardial infarction Social History Preferred Language: Luxembourgish Communication Ability: Effective Visual Impairment: No Limitations Hearing Ability: Normal Dirt Shoveler Required: No Beliefs That Will Affect Care: None marital status: Single Current Living Situation: Parent Current Living Situation Comment: CURRENT : [facility] current occupational status: unemployed Feels Safe at Home: Yes Smoking Status: Never smoker Tobacco Type: smokeless tobacco ; Second Hand Exposure: No (QUIT 02/2019) ; Hx Alcohol Use: No Hx Substance Use: No Childhood Exposure to Second-Hand Smoke: Yes Dental Care, Regularly: No Physical Activity Frequency: 1-2 Times per Week Seatbelt Use: always Sunscreen Use: No Review of Systems Review of Systems: All systems reviewed & are unremarkable except as noted in HPI & below Constitutional: no fever and no chills Eyes: no diplopia and no worsening vision Ear, Nose, Mouth, Throat: no nasal congestion and no sore throat Respiratory: no cough and no dyspnea Cardiovascular: no chest pain and no dyspnea Gastrointestinal: + nausea and + vomiting; no abdominal pain Genitourinary: no dysuria and no difficulty urinating Integumentary: no rash Neurologic: no numbness and no confusion Physical Exam Constitutional: actively vomiting causing uncomfortable appearance Eyes: PERRL, conjunctivae normal, anicteric sclerae Neck: normal visual inspection and trachea midline Respiratory: normal respiratory effort, lungs clear to auscultation Cardiovascular: RRR, no murmur, no edema Gastrointestinal (Abdomen): Percussion/Palpation: abdomen soft; abdomen nontender, no guarding and abdomen not rigid Musculoskeletal: Head/Neck/Chest: normocephalic and head atraumatic Skin: no rashes, warm and dry Neurologic: moves all extremities and awake Psychiatric: Orientation: alert and oriented x 3 Results & Data Vital Signs (Past 12 Hours) Vital Signs Temp Pulse Pulse Resp BP BP Pulse Ox 07/13/19 21:40 15 100 02/05/20 21:31 87 12 100 07/13/19 21:30 87 13 203/91 H 100 07/13/19 21:20 87 16 100 07/13/19 21:10 88 12 100 07/13/19 21:01 87 12 100 07/13/19 21:00 86 14 217/99 H 100 07/13/19 20:53 87 18 219/101 H 100 07/13/19 20:50 89 16 100 07/13/19 20:47 92 H 13 219/101 H 100 07/13/19 20:45 95 H 94 H 16 215/102 H 215/102 H 100 07/13/19 20:40 95 H 20 100 07/13/19 20:31 90 16 100 07/13/19 20:30 90 14 195/95 H 100 07/13/19 20:20 100 07/13/19 20:10 90 20 100 07/13/19 20:00 90 16 197/84 H 99 07/13/19 19:50 90 15 100 07/13/19 19:40 13 100 07/13/19 19:36 91 H 19 213/99 H 100 07/13/19 19:31 92 H 231/117 H 100 07/13/19 19:30 92 H 100 07/13/19 19:20 94 H 100 07/13/19 19:16 93 H 100 07/13/19 19:15 93 H 174/97 H 100 07/13/19 19:11 93 H 20 100 07/13/19 19:10 95 H 19 183/72 H 100 07/13/19 19:01 92 H 15 100 07/13/19 19:00 17 189/86 H 100 07/13/19 18:50 91 H 13 100 07/13/19 18:40 93 H 23 99 07/13/19 18:37 37.0 C 106 H 106 H 14 176/87 H 176/87 H 100 07/13/19 18:31 95 H 18 176/81 H 100 Code Status & VTE Plan Code Status Full Code VTE Prophylaxis Plan VTE Prophylaxis will be ordered: Yes Supervising Physician Co-Signing Physician Notes Attending addendum: I have physically seen this patient, have supervised the medical residents activities, and agree with the H&P unless as otherwise noted. Assessment and Plan: Intractable nausea and vomiting/diabetic gastroparesis- N.p.o. Gentle IV fluids, NS at 80 mils per hour x1 L. Zofran 4 mg IV every 6 hours as needed. Reglan 10 mg IV every 6 hours for nausea not relieved by Zofran. No infectious etiology suggested. Diabetes mellitus type 1- Placed on Accu-Cheks before meals and at bedtime with NovoLog coverage per scale. N.p.o. status above. ESRD on HD- Consult nephrology. Remainder of orders and notations as noted. Resident Activity Tracking Resident Involvement: Resident Care Provided Care Provided: Adult [facility]
--- NOTE | 2019-07-13 22:37 | Emergency Department Note ---
Entered by Dary Phillip acting as a scribe for History of Present Illness General Chief complaint: Hypertension Stated complaint: hypertension Source: patient History of Present Illness Onset (ago): hour(s) (1.5) Location: abdomen Pain Consistency: + constant Quality: + other (nausea and vomiting) Associated symptoms: + denies other symptoms (pain or burning with urination, abdominal pain) and + other (hypertension) The patient is a 48 year old male who presents to the Emergency Room with complaints of constant nausea and vomiting beginning 1.5 hours ago. He reports 6 bouts of vomiting. The patient reports the symptoms began after he had a colonoscopy for placement onto the transplant list for a new kidney. The patient reports hypertension but states he did not take his blood pressure medication today. He notes he is unable to keep any food or drink down. The patient denies pain and burning with urination and abdominal pain. He notes Zofran did not help the pain. The patient reports having dialysis three days a week, and notes he went earlier today. Patient denies any chest pain or shortness of breath. Home Medications Home Medications Medication Instructions Recorded Confirmed Type [place] Caps 1 cap PO QAM 12/19/18 07/13/19 History sertraline 100 mg PO QAM 03/21/19 07/13/19 History bupropion HCl 100 mg tablet,12 hr 100 mg PO QAM ea 04/14/19 07/13/19 History sustained-release lorazepam 0.5 mg tablet 0.5 mg PO Q6H PRN 04/27/19 07/13/19 History ondansetron 4 mg disintegrating 4 mg PO Q6H PRN 04/27/19 07/13/19 History tablet Contour Next Test Strips #240 ea NS 05/04/19 07/05/19 Rx Basaglar KwikPen U-100 Insulin 18 units SQ QAM 05/16/19 07/13/19 History calcium acetate 667 mg PO DIRECTED MDD 7 05/31/19 07/13/19 History CAPSULES/DAILY famotidine 20 mg tablet 20 mg PO 3XWK #90 tab 06/10/19 07/13/19 Rx carvedilol 25 mg tablet 25 mg PO BID tab 06/16/19 07/13/19 History amlodipine 10 mg PO QAM 06/21/19 07/13/19 History atorvastatin 10 mg PO QAM 06/21/19 07/13/19 History losartan 75 mg PO QAM 06/21/19 07/13/19 History metoclopramide HCl 5 mg PO ACHS 06/21/19 07/13/19 History BD Ultra-Fine Annalise Pen Needle 32 #800 ea NS 07/11/19 Rx gauge x " acetaminophen [Acetaminophen Extra 500 mg PO Q6H PRN MDD 3000 MG/DAY 07/13/19 07/13/19 History Strength] polyethylene glycol 3350 17 g PO DAILY 07/13/19 07/13/19 History sennosides-docusate sodium [Senna 1 tab-cap PO BID 07/13/19 07/13/19 History with Docusate Sodium] Allergies Allergy/AdvReac Type Severity Reaction Status Date / Time shellfish derived Allergy Severe anaphylaxis Verified 07/13/19 14:46 codeine Allergy Intermediate Hives Verified 07/13/19 14:46 promethazine Allergy Intermediate itchy/hives Verified 07/13/19 14:46 Past Med/Surg History Medical History Anxiety AV fistula left arm CAD (coronary artery disease) mild, non-obstructive CAD per 10/2018 cardiac cath> FOLLOWS [facility]ARD[facility] Depression Diabetes mellitus type I (Chronic) Diabetic neuropathy Diabetic retinopathy ESRD (end stage renal disease) Hemodialysis via permacath RIGHT CHEST M,W,F (Follows with Dr. Taylor Higgins; [facility]) Gastroparesis (Chronic) GERD (gastroesophageal reflux disease) Heart failure with reduced ejection fraction (Chronic) Hypertension Kidney stones Surgical History H/O shoulder surgery RIGHT History of appendectomy History of cardiac cath 10/2018= no stents, no obstructive disease (at [facility]) History of esophagogastroduodenoscopy (EGD) History of hip surgery LEFT HIP ARTHROSCOPY History of lithotripsy History of open reduction and internal fixation (ORIF) procedure right hip Nausea and vomiting after administration of anesthetic agent Permanent central venous catheter in place Permacath S/P arteriovenous (AV) fistula creation left arm Family History Grandfather Myocardial infarction Grandfather (Maternal) Family history of diabetes mellitus Uncle Myocardial infarction Social History Preferred Language: Croatian Communication Ability: Effective Visual Impairment: No Limitations Hearing Ability: Normal Dispatcher Maintenance Required: No Beliefs That Will Affect Care: None marital status: Current Living Situation: Other Current Living Situation Comment: CURRENT : [facility] current occupational status: unemployed Feels Safe at Home: Yes Smoking Status: Never smoker Tobacco Type: smokeless tobacco ; Second Hand Exposure: No (QUIT 02/2019) ; Hx Alcohol Use: Yes Hx Substance Use: No Childhood Exposure to Second-Hand Smoke: Yes Dental Care, Regularly: No Physical Activity Frequency: 1-2 Times per Week Seatbelt Use: always Sunscreen Use: No Review of Systems See HPI for pertinent positives & negatives. and A total of 10 systems reviewed and were otherwise negative Physical Exam Vital Signs Vital Signs - 24 hr 07/13/19 18:31 07/13/19 18:37 07/13/19 18:40 Temperature 37.0 C Temperature Source Oral Pulse Rate 95 H 106 H 93 H Pulse Rate [Finger] 106 H Pulse Rate from SpO2 Sensor 95 H 93 H 93 H Pulse Rhythm [Finger] Respiratory Rate 18 14 23 Respiratory Depth Blood Pressure 176/81 H 176/87 H Blood Pressure [Right Arm] 176/87 H Blood Pressure Mean 122 116 Blood Pressure Mean [Right Arm] 116 Pulse Oximetry 100 100 99 Oxygen Delivery Method Room Air Sepsis Recent Fever Within 48 Hours No Sepsis New/Unexplained Change in Mental Status No Sepsis Action Taken by Nursing No Action Required 07/13/19 18:42 07/13/19 18:50 07/13/19 19:00 Temperature Temperature Source Pulse Rate 91 H Pulse Rate [Finger] Pulse Rate from SpO2 Sensor 91 H 93 H Pulse Rhythm [Finger] Respiratory Rate 13 17 Respiratory Depth Blood Pressure 189/86 H Blood Pressure [Right Arm] Blood Pressure Mean 125 Blood Pressure Mean [Right Arm] Pulse Oximetry 100 100 Oxygen Delivery Method Room Air Sepsis Recent Fever Within 48 Hours Sepsis New/Unexplained Change in Mental Status Sepsis Action Taken by Nursing 07/13/19 19:01 07/13/19 19:10 07/13/19 19:11 Temperature Temperature Source Pulse Rate 92 H 95 H 93 H Pulse Rate [Finger] Pulse Rate from SpO2 Sensor 93 H 95 H 93 H Pulse Rhythm [Finger] Respiratory Rate 15 19 20 Respiratory Depth Blood Pressure 183/72 H Blood Pressure [Right Arm] Blood Pressure Mean 85 Blood Pressure Mean [Right Arm] Pulse Oximetry 100 100 100 Oxygen Delivery Method Sepsis Recent Fever Within 48 Hours Sepsis New/Unexplained Change in Mental Status Sepsis Action Taken by Nursing 07/13/19 19:15 07/13/19 19:16 07/13/19 19:20 Temperature Temperature Source Pulse Rate 93 H 93 H 94 H Pulse Rate [Finger] Pulse Rate from SpO2 Sensor 93 H 93 H 94 H Pulse Rhythm [Finger] Respiratory Rate Respiratory Depth Blood Pressure 174/97 H Blood Pressure [Right Arm] Blood Pressure Mean 133 Blood Pressure Mean [Right Arm] Pulse Oximetry 100 100 100 Oxygen Delivery Method Sepsis Recent Fever Within 48 Hours Sepsis New/Unexplained Change in Mental Status Sepsis Action Taken by Nursing 07/13/19 19:30 07/13/19 19:31 07/13/19 19:36 Temperature Temperature Source Pulse Rate 92 H 92 H 91 H Pulse Rate [Finger] Pulse Rate from SpO2 Sensor 92 H 92 H 91 H Pulse Rhythm [Finger] Respiratory Rate 19 Respiratory Depth Blood Pressure 231/117 H 213/99 H Blood Pressure [Right Arm] Blood Pressure Mean 173 152 Blood Pressure Mean [Right Arm] Pulse Oximetry 100 100 100 Oxygen Delivery Method Sepsis Recent Fever Within 48 Hours Sepsis New/Unexplained Change in Mental Status Sepsis Action Taken by Nursing 07/13/19 19:40 07/13/19 19:50 07/13/19 20:00 Temperature Temperature Source Pulse Rate 90 90 Pulse Rate [Finger] Pulse Rate from SpO2 Sensor 91 H 90 90 Pulse Rhythm [Finger] Respiratory Rate 13 15 16 Respiratory Depth Blood Pressure 197/84 H Blood Pressure [Right Arm] Blood Pressure Mean 121 Blood Pressure Mean [Right Arm] Pulse Oximetry 100 100 99 Oxygen Delivery Method Sepsis Recent Fever Within 48 Hours Sepsis New/Unexplained Change in Mental Status Sepsis Action Taken by Nursing 07/13/19 20:10 07/13/19 20:20 07/13/19 20:30 Temperature Temperature Source Pulse Rate 90 90 Pulse Rate [Finger] Pulse Rate from SpO2 Sensor 90 92 H 90 Pulse Rhythm [Finger] Respiratory Rate 20 14 Respiratory Depth Blood Pressure 195/95 H Blood Pressure [Right Arm] Blood Pressure Mean 166 Blood Pressure Mean [Right Arm] Pulse Oximetry 100 100 100 Oxygen Delivery Method Sepsis Recent Fever Within 48 Hours Sepsis New/Unexplained Change in Mental Status Sepsis Action Taken by Nursing 07/13/19 20:31 07/13/19 20:40 07/13/19 20:45 Temperature Temperature Source Pulse Rate 90 95 H 95 H Pulse Rate [Finger] 94 H Pulse Rate from SpO2 Sensor 91 H 94 H 95 H Pulse Rhythm [Finger] Regular Respiratory Rate 16 20 16 Respiratory Depth Shallow Blood Pressure 215/102 H Blood Pressure [Right Arm] 215/102 H Blood Pressure Mean 167 Blood Pressure Mean [Right Arm] 139 Pulse Oximetry 100 100 100 Oxygen Delivery Method Room Air Sepsis Recent Fever Within 48 Hours Sepsis New/Unexplained Change in Mental Status Sepsis Action Taken by Nursing 07/13/19 20:47 07/13/19 20:50 07/13/19 20:53 Temperature Temperature Source Pulse Rate 92 H 89 Pulse Rate [Finger] 87 Pulse Rate from SpO2 Sensor 92 H 89 Pulse Rhythm [Finger] Regular Respiratory Rate 13 16 18 Respiratory Depth Normal Blood Pressure 219/101 H Blood Pressure [Right Arm] 219/101 H Blood Pressure Mean 155 Blood Pressure Mean [Right Arm] 140 Pulse Oximetry 100 100 100 Oxygen Delivery Method Room Air Sepsis Recent Fever Within 48 Hours Sepsis New/Unexplained Change in Mental Status Sepsis Action Taken by Nursing 07/13/19 21:00 07/13/19 21:01 07/13/19 21:10 Temperature Temperature Source Pulse Rate 86 87 88 Pulse Rate [Finger] Pulse Rate from SpO2 Sensor 86 87 88 Pulse Rhythm [Finger] Respiratory Rate 14 12 12 Respiratory Depth Blood Pressure 217/99 H Blood Pressure [Right Arm] Blood Pressure Mean 150 Blood Pressure Mean [Right Arm] Pulse Oximetry 100 100 100 Oxygen Delivery Method Sepsis Recent Fever Within 48 Hours Sepsis New/Unexplained Change in Mental Status Sepsis Action Taken by Nursing 07/13/19 21:20 07/13/19 21:30 07/13/19 21:31 Temperature Temperature Source Pulse Rate 87 87 87 Pulse Rate [Finger] Pulse Rate from SpO2 Sensor 87 87 87 Pulse Rhythm [Finger] Respiratory Rate 16 13 12 Respiratory Depth Blood Pressure 203/91 H Blood Pressure [Right Arm] Blood Pressure Mean 152 Blood Pressure Mean [Right Arm] Pulse Oximetry 100 100 100 Oxygen Delivery Method Sepsis Recent Fever Within 48 Hours Sepsis New/Unexplained Change in Mental Status Sepsis Action Taken by Nursing 07/13/19 21:40 07/13/19 21:50 07/13/19 21:56 Temperature Temperature Source Pulse Rate 89 88 Pulse Rate [Finger] Pulse Rate from SpO2 Sensor 89 90 88 Pulse Rhythm [Finger] Respiratory Rate 15 16 15 Respiratory Depth Blood Pressure 203/92 H Blood Pressure [Right Arm] Blood Pressure Mean 132 Blood Pressure Mean [Right Arm] Pulse Oximetry 100 100 100 Oxygen Delivery Method Sepsis Recent Fever Within 48 Hours Sepsis New/Unexplained Change in Mental Status Sepsis Action Taken by Nursing 07/13/19 22:00 07/13/19 22:01 Temperature Temperature Source Pulse Rate 88 87 Pulse Rate [Finger] Pulse Rate from SpO2 Sensor 88 87 Pulse Rhythm [Finger] Respiratory Rate 19 16 Respiratory Depth Blood Pressure 207/95 H Blood Pressure [Right Arm] Blood Pressure Mean 149 Blood Pressure Mean [Right Arm] Pulse Oximetry 99 98 Oxygen Delivery Method Sepsis Recent Fever Within 48 Hours Sepsis New/Unexplained Change in Mental Status Sepsis Action Taken by Nursing GENERAL: lying in bed, chronically-ill appearing, disheveled EYE EXAM: normal conjunctiva OROPHARYNX: no exudate, no erythema, lips, buccal mucosa, and tongue normal and mucous membranes are moist NECK: supple, no nuchal rigidity, no adenopathy, non-tender LUNGS: Clear to auscultation. Normal chest wall mechanics HEART: no murmurs, S1 normal and S2 normal CHEST: Central access in right upper chest wall ABDOMEN: abdomen soft, non-tender, normo-active bowel sounds, no masses, no rebound or guarding. BACK: Back is symmetrical on inspection and there is no deformity, no midline tenderness, no CVA tenderness. SKIN: no rashes and no bruising UPPER EXTREMITIES: upper extremities are grossly normal. LOWER EXTREMITIES: No pitting edema. NEURO EXAM: Normal sensorium, cranial nerves II-XII grossly intact, normal speech, no gross weakness of arms, no gross weakness of legs. Course Course ED COURSE: Vital signs were reviewed and showed to be hypertensive situationally. The patients medical record was reviewed The above diagnostic studies were performed and reviewed. ED treatments and interventions as stated above. 1831: The patient was evaluated in room B04B. A complete history and physical examination was performed. 2014: Upon reevaluation, the patient was dry heaving. 2040: Upon reevaluation, the patient is resting more comfortably. I discussed my findings with the patient and he understands and agrees with the treatment plan. Based on the patients age, coexisting illnesses, exam and lab findings the decision to treat as an inpatient was made. I reviewed the patient's case with Dr. Guajardo - [facility] Hospitalist who will evaluate the patient for further management. The patient remained stable while under my care. The patient will be evaluated for further management. Administered Medications Discontinued Medications Sodium Chloride (Nss 1000ml) 1,000 mls @ 999 mls/hr IV .Q1H1M JACKI Stop: 07/13/19 19:45 Last Infusion: 07/13/19 20:14 Dose: 0 mls/hr Documented by: [id number] Admin: 07/13/19 19:11 Dose: 999 mls/hr Documented by: [id number] Labetalol HCl (Normodyne) 10 mg IV NOW STA Stop: 07/13/19 20:31 Last Admin: 07/13/19 20:44 Dose: 10 mg Documented by: [id number] Cosigned by: [id number] Labetalol HCl (Normodyne) 10 mg IV NOW STA Stop: 07/13/19 21:40 Last Admin: 07/13/19 21:46 Dose: 10 mg Documented by: [id number] Cosigned by: [id number] Metoclopramide HCl (Reglan) 10 mg IV NOW STA Stop: 07/13/19 18:39 Last Admin: 07/13/19 19:11 Dose: 10 mg Documented by: [id number] Ondansetron HCl (Zofran) 4 mg IV NOW STA Stop: 07/13/19 18:39 Last Admin: 07/13/19 19:11 Dose: 4 mg Documented by: [id number] Ondansetron HCl (Zofran) 4 mg IV NOW STA Stop: 07/13/19 20:31 Last Admin: 07/13/19 20:44 Dose: 4 mg Documented by: [id number] Critical Care Time Critical Care Time: Yes Total Critical Care Time: 34 I have personally spent 34 minutes of critical care time in the direct management of this patient. This includes bedside care, interpretation of di agnostic studies, and testing, discussion with consultants, patient, and family members, and other required patient management activities. This 34 minutes is in excess of all separately billable procedures. Medical Decision Making Differential Diagnosis Differential diagnoses includes but is not limited to gastritis, peptic ulcer disease, GERD, gallbladder disease, pancreatitis, small bowel obstruction, acute coronary syndrome, pericarditis, ischemic bowel, irritable bowel disease, irritable bowel syndrome, appendicitis, diverticulitis, malignancy, hernia, urinary tract infection, torsion, perforation, trauma, infectious. Medical Records Attestation: I reviewed the patient's medical records. Home Medications Current Medication List: was personally reviewed by me Laboratory Data Attestation: I reviewed the patient's lab results. Result diagrams: 07/13/19 19:49 07/13/19 19:49 Lab Results 07/13/19 07/13/19 Range/Units 19:49 19:49 WBC 9.23 (4.8-10.8) K/uL RBC 4.03 L (4.7-6.1) M/uL Hgb 12.8 L (14.0-18.0) g/dL Hct 37.5 L (42-52) % MCV 93.1 (80-100) fL MCH 31.8 (25-34) pg MCHC 34.1 (32-36) g/dL RDW Std Deviation 48.6 H (36.4-46.3) fL RDW Coeff of Kami 14.9 H (11.5-14.5) % Plt Count 281 (130-400) K/uL MPV 8.1 (7.4-10.4) fL Immature Gran % (Auto) 0.2 % Neut % (Auto) 76.6 % Lymph % (Auto) 11.6 % [place] % (Auto) 10.7 % Eos % (Auto) 0.5 % Baso % (Auto) 0.4 % Immature Gran # (Auto) 0.02 (0.00-0.02) K/uL Neut # (Auto) 7.06 H (1.4-6.5) K/uL Lymph # (Auto) 1.07 L (1.2-3.4) K/uL [place] # (Auto) 0.99 H (0.11-0.59) K/uL Eos # (Auto) 0.05 (0-0.5) K/uL Baso # (Auto) 0.04 (0-0.2) K/uL Sodium 134 L (136-145) mmol/L Potassium 3.3 L (3.5-5.1) mmol/L Chloride 97 L (98-107) mmol/L Carbon Dioxide 25 (21-32) mmol/L Anion Gap 11.0 (3-11) BUN 13 (7-18) mg/dl Creatinine 3.53 H (0.6-1.4) mg/dl Est Cr Clr Drug Dosing 23.8 ml/min Est GFR ( Amer) 22.4 Est GFR (Non-Af Amer) 19.3 BUN/Creatinine Ratio 3.7 L (10-20) Glucose 191 H (70-99) mg/dl Calcium 8.9 (8.5-10.1) mg/dl Total Bilirubin 0.5 (0.2-1) mg/dl AST 18 (15-37) U/L ALT 32 (12-78) U/L Alkaline Phosphatase 110 (45-117) U/L Total Protein 7.4 (6.4-8.2) gm/dl Albumin 3.9 (3.4-5.0) gm/dl Globulin 3.5 (2.5-4.0) gm/dl Albumin/Globulin Ratio 1.1 (0.9-2) Lipase 68 L (73-393) U/L Imaging Data Radiologist's Impression: Radiology results as stated below per my review and the radiologist's interpretation: XR chest 1V portable CLINICAL HISTORY: VOMITING COMPARISON STUDY: Chest radiograph May 31, 2019. FINDINGS: Right internal jugular dual lumen catheter is in place. There is no pneumothorax or pleural effusion. Mild cardiomegaly is noted without evidence for pulmonary edema. There is mild left basilar opacity. IMPRESSION: 1. Mild left basilar opacity. Atelectasis is favored however an infectious process could appear similar. 2. Mild cardiomegaly without evidence for pulmonary edema. ACT 112: Negative or not required by law. Electronically signed by: Gabino Cool M.D. 07/13/2019 9:08 PM Blood Pressure Blood Pressure Findings: Elevated blood pressure Blood Pressure Disposition: further management by hospitalist DAVID Narrative Patient is a 48-year-old male who presents the ER brought over from the endoscopy suite after being scoped for colonoscopy earlier today. He has had persistent nausea vomiting following this. He does receive dialysis Thursday and did obtain earlier today. He was given 10 mg of IV labetalol while over there. He had persistent dry heaving. He presents here and continues to have dry heaving. Of note it does occur immediately upon walking to the door and does resolve when he walk out but he is markedly hyperte nsive. Systolic blood pressures in the low 200s. He was given several dose of IV labetalol. Pressures did come down marginally. He was given IV Zofran and judicious fluids as he is dialysis dependent. He was also given Reglan. Vomiting did improve but he was still significantly hypertensive unable to take his oral home medications. Labs show no significant leukocytosis but mild anemia. BMP with mild hypokalemia. LFTs bilirubin and lipase is unremarkable. Chest x-ray showed with a questionable infiltrate. Patient was updated bedside discussed with the hospitalist for observation. Impression & Plan Hypertensive urgency, Vomiting, Nausea, Dialysis patient Discharge Plan Visit Data Chief Complaint: Hypertension Stated Complaint: hypertension ED Provider: Obie Lancaster Discharge Problem: Hypertensive urgency, Vomiting, Nausea, Dialysis patient Patient Disposition: Being Evaluated by Hospitalist Forms Stand Alone Forms: [facility] Prescriptions Prescriptions: No Action bupropion HCl 100 mg tablet sustained-release 12 hr 100 mg PO QAM RF: 0 (DME) Contour Next Test Strips strip See Dose Instructions .ROUTE .MEDSUPPLY Qty: 240 RF: 5 famotidine 20 mg tablet 20 mg PO 3XWK Qty: 90 RF: 1 (DME) pen needle, diabetic [BD Ultra-Fine Annalise Pen Needle] 32 gauge x 5/32" needle See Rx Instructions .ROUTE .MEDSUPPLY Qty: 800 RF: 3 carvedilol 25 mg tablet 25 mg PO BID RF: 0 ondansetron 4 mg tablet,disintegrating 4 mg PO Q6H PRN (Reason: Nausea And Vomiting) RF: 0 Basaglar KwikPen U-100 Insulin 100 unit/mL (3 mL) insulin pen 18 units SQ QAM RF: 0 losartan 50 mg tablet 75 mg PO QAM RF: 0 atorvastatin 10 mg tablet 10 mg PO QAM RF: 0 metoclopramide HCl 5 mg tablet 5 mg PO ACHS RF: 0 amlodipine 10 mg tablet 10 mg PO QAM RF: 0 acetaminophen [Acetaminophen Extra Strength] 500 mg Tablet 500 mg PO Q6H MDD 3000 MG/DAY PRN (Reason: Fever Or Pain) RF: 0 sennosides-docusate sodium [Senna with Docusate Sodium] 8.6-50 mg Tablet 1 tab-cap PO BID RF: 0 polyethylene glycol 3350 17 gram/dose Powder 17 g PO DAILY RF: 0 [place] Caps 1 mg capsule 1 cap PO QAM RF: 0 sertraline 100 mg tablet 100 mg PO QAM RF: 0 lorazepam 0.5 mg tablet 0.5 mg PO Q6H PRN (Reason: Anxiety) RF: 0 calcium acetate 667 mg capsule 667 mg PO DIRECTED MDD 7 CAPSULES/DAILY RF: 0 Referrals Referrals: Abbi Ames MD [Primary Care Provider] - Discharge Problem: Vomiting Qualifiers: Vomiting type: unspecified Vomiting Intractability: unspecified Nausea presence: unspecified Qualified Code(s): R11.10 - Vomiting, unspecified The scribe's documentation has been prepared under my direction and personally reviewed by me in its entirety. I confirm that the note above accurately reflects all work, treatment, procedures, and medical decision making performed by me.
[2019-07-13] MEDS ORDERED: PROMETHAZINE 12.5 MG/50.5 ML BAG IV STA (22:56)
[2019-07-13] MEDS ORDERED: PROCHLORPERAZINE 2 ML IV ONE (22:57)
[2019-07-14] MEDS ORDERED: GLUCOSE 10 TABS/TUBE PO PRN (00:05)
[2019-07-14] MEDS ORDERED: DiphenhydrAMINE HCL 50 MG/ML VIAL IV PRN (00:05)
[2019-07-14] MEDS ORDERED: GLUCAGON FOR INJ 1 MG VIAL SQ PRN (00:05)
[2019-07-14] MEDS ORDERED: DEXTROSE 50% 50 ML SYRINGE IV PRN (00:05)
[2019-07-14] MEDS ORDERED: LORazepam 0.5 MG/1 ML VIAL IV PRN (00:05)
[2019-07-14] MEDS ORDERED: GLUCOSE 40% GEL 15 GM TUBE PO PRN (00:05)
[2019-07-14] MEDS ORDERED: PHARMACY GLYCEMIC MGMT CONSULT STA (00:05)
[2019-07-14] MEDS: POTASSIUM CHLORIDE / WTR 10 MEQ/100 ML PLCT IV SCH ×2 (00:34→02:09)
[2019-07-14] MEDS: SODIUM CHLORIDE 0.9% 1000ML 1,000 ML IV SCH ×3 (00:34→23:40)
[2019-07-14] MEDS: FAMOTIDINE 20 MG in SYRINGE 3 ML IV SCH ×2 (00:35→21:45)
[2019-07-14] MEDS ORDERED: HydrALAZINE HCL 20 MG/ML VIAL IV STA (00:52)
[2019-07-14] MEDS ORDERED: PHARMACY GLYCEMIC MGMT CONSULT PRN (01:00)
[2019-07-14] MEDS ORDERED: INSULIN HUMAN REGULAR PER UNIT 4 UNITS in SYRINGE 3.96 ML IV ONE (01:15)
[2019-07-14] MEDS ORDERED: INSULIN ASPART 100 UNITS/ML 3 ML PEN SC SCH ×2 (03:00→06:00)
[2019-07-14] MEDS: ONDANSETRON INJ 2 MG/ML 2 ML VIAL IV PRN ×2 (03:29→10:38)
[2019-07-14] MEDS: LABETALOL HCL IV 5 MG/ML 20ML IV PRN (04:05)
--- NOTE | 2019-07-14 07:13 | Nephrology Consultation ---
Date of Consultation July 14, 2019 Assessment & Plan (1) Hypertensive urgency: Systolic blood pressures running the 180s to 220s since admission. This in the setting of intractable nausea and vomiting, so oral medications not a good option here. -Lowered rate of normal saline to 40 mL hourly to avoid worsening hypertension -Standing/prn orders in for enaliprilat and hydralazine both IV w/ hold parameters; continue PRN labetalol -Goal systolic blood pressure is 150s to 170s today >> note that through the day blood pressures have improved: Last blood pressure 140 systolic -Defer to primary service to continue efforts to control nausea and vomiting as well as anxiety which can also worsen his hypertension Present on Admission?: Yes (2) ESRD on dialysis: No indication for dialysis today: Volume status, chemistries acceptable. Note the potassium improved to 3.8 this morning and other chemistries remain acceptable. Believe that hypertension can be managed with medication. Mild anemia noted; will follow and manage on dialysis. Plan dialysis for tomorrow a.m. Present on Admission?: Yes History of Present Illness Reason for Consultation: ESRD on HD Requesting Physician: Dr Guajardo Attending Physician: Colton Guajardo MD History of Present Illness 48-year-old male with ESRD on Thursday hemodialysis was admitted overnight with hypertensive urgency and intractable nausea and vomiting. Medical history includes type 1 diabetes with chronic and severe gastroparesis multiple admissions for same, hypertension, significant/severe depression. Patient dialyzes under my care at [facility] on Thursday. He had routine dialysis yesterday. Also underwent a colonoscopy yesterday. Developed intractable nausea and vomiting mid afternoon. Systolic pressures in the ER in the 1 90-2 30 range, treated with labetalol. I arranged for IV blood pressure medications this morning. On evaluation this this evening, patient feels much better and was able to tolerate supper. Patient s een and evaluated at 1815. Allergies Allergy/AdvReac Type Severity Reaction Status Date / Time shellfish derived Allergy Severe anaphylaxis Verified 07/13/19 14:46 codeine Allergy Intermediate Hives Verified 07/13/19 14:46 promethazine Allergy Intermediate itchy/hives Verified 07/13/19 14:46 Home Medications Home Medications Medication Instructions Recorded Confirmed Type Thurston Caps 1 cap PO QAM 12/19/18 07/13/19 History sertraline 100 mg PO QAM 03/21/19 07/13/19 History bupropion HCl 100 mg tablet,12 hr 100 mg PO QAM ea 04/14/19 07/13/19 History sustained-release lorazepam 0.5 mg tablet 0.5 mg PO Q6H PRN 04/27/19 07/13/19 History ondansetron 4 mg disintegrating 4 mg PO Q6H PRN 04/27/19 07/13/19 History tablet Contour Next Test Strips #240 ea NS 05/04/19 07/05/19 Rx Basaglar KwikPen U-100 Insulin 18 units SQ QAM 05/16/19 07/13/19 History calcium acetate 667 mg PO DIRECTED MDD 7 05/31/19 07/13/19 History CAPSULES/DAILY famotidine 20 mg tablet 20 mg PO 3XWK #90 tab 06/10/19 07/13/19 Rx carvedilol 25 mg tablet 25 mg PO BID tab 06/16/19 07/13/19 History amlodipine 10 mg PO QAM 06/21/19 07/13/19 History atorvastatin 10 mg PO QAM 06/21/19 07/13/19 History losartan 75 mg PO QAM 06/21/19 07/13/19 History metoclopramide HCl 5 mg PO ACHS 06/21/19 07/13/19 History BD Ultra-Fine Annalise Pen Needle 32 #800 ea NS 07/11/19 Rx gauge x 5/32" acetaminophen [Acetaminophen Extra 500 mg PO Q6H PRN MDD 3000 MG/DAY 07/13/19 07/13/19 History Strength] polyethylene glycol 3350 17 g PO DAILY 07/13/19 07/13/19 History sennosides-docusate sodium [Senna 1 tab-cap PO BID 07/13/19 07/13/19 History with Docusate Sodium] Patient History Medical History Anxiety AV fistula left arm CAD (coronary artery disease) mild, non-obstructive CAD per 10/2018 cardiac cath> FOLLOWS [facility] Depression Diabetes mellitus type I (Chronic) Diabetic neuropathy Diabetic retinopathy ESRD (end stage renal disease) Hemodialysis via permacath RIGHT CHEST M,W,F (Follows with Dr. Taylor Higgins; [facility]/[place]) Gastroparesis (Chronic) GERD (gastroesophageal reflux disease) Heart failure with reduced ejection fraction (Chronic) Hypertension Kidney stones Surgical History H/O shoulder surgery RIGHT History of appendectomy History of cardiac cath 10/2018= no stents, no obstructive disease (at [facility]) History of esophagogastroduodenoscopy (EGD) History of hip surgery LEFT HIP ARTHROSCOPY History of lithotripsy History of open reduction and internal fixation (ORIF) procedure right hip Nausea and vomiting after administration of anesthetic agent Permanent central venous catheter in place Permacath S/P arteriovenous (AV) fistula creation left arm Family History Grandfather Myocardial infarction Grandfather (Maternal) Family history of diabetes mellitus Uncle Myocardial infarction Social History Preferred Language: Latvian Communication Ability: Effective Visual Impairment: No Limitations Hearing Ability: Normal Mortgage Advisor Required: No Beliefs That Will Affect Care: None marital status: Single Current Living Situation: Parent Current Living Situation Comment: CURRENT : [facility] current occupational status: unemployed Feels Safe at Home: Yes Smoking Status: Never smoker Tobacco Type: smokeless tobacco ; Second Hand Exposure: No (QUIT 02/2019) ; Hx Alcohol Use: No Hx Substance Use: No Childhood Exposure to Second-Hand Smoke: Yes Dental Care, Regularly: No Physical Activity Frequency: 1-2 Times per Week Seatbelt Use: always Sunscreen Use: No Review of Systems Review of Systems: All systems reviewed & are unremarkable except as noted in HPI & below Genitourinary: + problem reported (No change in chronic voiding habits; still makes a small amount of urine) Physical Exam Constitutional: well developed, well nourished, + thin and cooperative; no acute distress (On room air) Eyes: EOM intact bilaterally ENMT: Ears: no external ear abnormality Nose: no external nose abnormality Mouth: + dry oral mucous membranes Neck: no nuchal rigidity Respiratory: normal respiratory effort Auscultation: lungs clear to auscultation bilaterally and + diminished lung sounds Cardiovascular: RRR, no murmur, no edema Extremities: + AV fistula (Maturing) Gastrointestinal (Abdomen): Inspection/Auscultation: normal bowel sounds Percussion/Palpation: abdomen soft; abdomen nontender Musculoskeletal: Extremities: strength 5/5 throughout Skin: no rashes, warm and dry Neurologic: spicer, fluent speech, no tremor Psychiatric: A+Ox3, euthymic affect Results & Data Vital Signs (Past 12 Hours) Vital Signs Temp Pulse Pulse Resp BP BP Pulse Ox 07/14/19 04:10 37.0 C 96 H 20 180/88 H 100 07/14/19 00:05 07/13/19 23:45 91 H 07/13/19 23:30 36.6 C 92 H 16 196/86 H 100 07/13/19 22:51 95 H 16 202/96 H 07/13/19 22:50 94 H 12 07/13/19 22:40 87 16 100 07/13/19 22:31 85 14 99 07/13/19 22:30 87 16 192/81 H 100 07/13/19 22:20 90 17 100 07/13/19 22:10 86 23 100 07/13/19 22:01 87 16 98 07/13/19 22:00 88 19 207/95 H 99 07/13/19 21:56 88 15 203/92 H 100 07/13/19 21:50 89 16 100 07/13/19 21:40 15 100 07/13/19 21:31 87 12 100 07/13/19 21:30 87 13 203/91 H 100 07/13/19 21:20 87 16 100 07/13/19 21:10 88 12 100 07/13/19 21:01 87 12 100 07/13/19 21:00 86 14 217/99 H 100 07/13/19 20:53 87 18 219/101 H 100 07/13/19 20:50 89 16 100 07/13/19 20:47 92 H 13 219/101 H 100 07/13/19 20:45 95 H 94 H 16 215/102 H 215/102 H 100 07/13/19 20:40 95 H 20 100 07/13/19 20:31 90 16 100 07/13/19 20:30 90 14 195/95 H 100 07/13/19 20:20 100 07/13/19 20:10 90 20 100 07/13/19 20:00 90 16 197/84 H 99 07/13/19 19:50 90 15 100 07/13/19 19:40 13 100 07/13/19 19:36 91 H 19 213/99 H 100 07/13/19 19:31 92 H 231/117 H 100 07/13/19 19:30 92 H 100 07/13/19 19:20 94 H 100 07/13/19 19:16 93 H 100 07/13/19 19:15 93 H 174/97 H 100 07/13/19 19:11 93 H 20 100 07/13/19 19:10 95 H 19 183/72 H 100 Pulse Ox 07/14/19 04:10 07/14/19 00:05 100 07/13/19 23:45 07/13/19 23:30 07/13/19 22:51 07/13/19 22:50 07/13/19 22:40 07/13/19 22:31 07/13/19 22:30 07/13/19 22:20 07/13/19 22:10 07/13/19 22:01 07/13/19 22:00 07/13/19 21:56 07/13/19 21:50 07/13/19 21:40 07/13/19 21:31 07/13/19 21:30 07/13/19 21:20 07/13/19 21:10 07/13/19 21:01 07/13/19 21:00 07/13/19 20:53 07/13/19 20:50 07/13/19 20:47 07/13/19 20:45 07/13/19 20:40 07/13/19 20:31 07/13/19 20:30 07/13/19 20:20 07/13/19 20:10 07/13/19 20:00 07/13/19 19:50 07/13/19 19:40 07/13/19 19:36 07/13/19 19:31 07/13/19 19:30 07/13/19 19:20 07/13/19 19:16 07/13/19 19:15 07/13/19 19:11 07/13/19 19:10 Laboratory Results 07/13/19 19:49 07/13/19 19:49 Diagnostic Findings Chest x-ray 1. Mild left basilar opacity. Atelectasis is favored however an infectious process could appear similar. 2. Mild cardiomegaly without evidence for pulmonary edema.
[2019-07-14 07:19] LABS: Basophils # (auto) 0.01 K/uL (0-0.2); Basophils % (auto) 0.1 %; Hemoglobin 11.4 g/dL (14.0-18.0); Immature Granulocytes # (auto) 0.05 K/uL (0.00-0.02); Immature Granulocytes % (auto) 0.4 %; Lymphocytes % (auto) 7.4 %; Mean Corpuscular Hemoglobin 31.1 pg (25-34); Mean Corpuscular Hgb Conc 32.6 g/dL (32-36); Mean Corpuscular Volume 95.6 fL (80-100); Mean Platelet Volume 8.3 fL (7.4-10.4); Monocytes # (auto) 0.79 K/uL (0.11-0.59); Monocytes % (auto) 6.5 %; Neutrophils # (auto) 10.34 K/uL (1.4-6.5); Neutrophils % (auto) 85.6 %; Platelet Count 253 K/uL (130-400); RDW Coefficient of Variation 15.3 % (11.5-14.5); RDW Standard Deviation 50.5 fL (36.4-46.3); Red Blood Count 3.66 M/uL (4.7-6.1); White Blood Count 12.09 K/uL (4.8-10.8)
[2019-07-14] MEDS ORDERED: HydrALAZINE HCL 20 MG/ML VIAL IV PRN (07:20)
[2019-07-14 07:53] LABS: BUN Creatinine Ratio 4.6 (10-20); Calcium 8.6 mg/dl (8.5-10.1); Creatinine Clr Calc Pharmacy 19.2 ml/min; Est GFR (African American) 17.2; Est GFR (Non-African American) 14.9; Magnesium 1.9 mg/dl (1.8-2.4); Phosphorus 2.2 mg/dl (2.5-4.9); Potassium 3.8 mmol/L (3.5-5.1)
[2019-07-14] MEDS ORDERED: ENALAPRILAT 1.25 MG in DEXTROSE 5% 25 ML IV PRN (08:00)
[2019-07-14] MEDS: ENALAPRILAT 1.25 MG in DEXTROSE 5% 25 ML IV SCH ×3 (08:10→19:59)
[2019-07-14 11:33] LABS: Hepatitis B Surface Antibody Immune
[2019-07-14 11:43] LABS: Hepatitis B Surface Antigen Neg (Neg)
[2019-07-14] MEDS: INSULIN HUMAN REGULAR SC SCH ×4 (13:10→17:22)
--- NOTE | 2019-07-14 14:23 | Pharmacy Report ---
Pharmacy Glycemic Short Note 2 - Date of Service July 14, 2019 - Glycemic Short BSG Results (Last 24 hours): 07/13/19 07/14/19 07/14/19 19:49 00:32 03:03 Glucose 191 H POC Glucose 318 H* 305 H* 07/14/19 07/14/19 07/14/19 06:11 07:12 11:41 Glucose 246 H POC Glucose 238 H 271 H OUTPATIENT ANTIDIABETIC REGIMEN: * Basaglar 18 units Q AM * ASSESSMENT: * Type 1 diabetic, known to Glycemic Control Service from prior admissions, admitted for intractable nausea and vomiting, elevated BP * This AM's labs reviewed, pt is hyperglycemic however AG and Bicarb normal * Will utilize an insulin regimen that has performed well for this patient on prior admissions. Although this regimen is unconventional it seems to work for this patient. We utilize Q 6 hr Regular insulin 2-4 units to provide basal insulin needs rather than his usual basal insulin. On top of this scheduled dose, we will also provide correctional insulin. * Patient is currently NPO. If he remains NPO for a prolonged period of time, one may need to add dextrose to his IVFs to allow for continued insulin administration. PLAN FOR INPATIENT GLYCEMIC CONTROL: * Basal insulin: * REGULAR insulin Q 6 hrs * 2 units if BSG < 110 * 3 units if BSG 110-150 * 4 units if BSG > 150 * Bolus insulin * REGULAR insulin * Goal range: 110-150 * Correction factor: 30mg/dL/unit * Carb ratio: none (given pt's NV and inconsistent PO intake and grazing habits, counting carbs is difficult) * Consider addition of dextrose of maint IVFs if patient's NPO status precludes insulin administration PLAN FOR DISCHARGE: * to be determined
--- NOTE | 2019-07-14 15:30 | Gastrointestinal Consultation ---
Date of Consultation July 14, 2019 Assessment & Plan (1) Nausea: (2) Vomiting: At present, his Nausea and vomiting has resolved. He is asking for an advancement of his diet He is slightly anxious about getting his Hemodialysis tomorrow Will followup in AM for further evaluation. Advance diet as tolerated History of Present Illness Reason for Consultation: Nausea and vomiting Attending Physician: Maninder Greenberg DO History of Present Illness 48 yo CM who presented to the GI lab yesterday to undergo a screening colonoscopy for pre-operative evaluation for a renal transplant. He was having some nausea which he felt was secondary to his bowel prep, but also had significant anxiety about his procedure. He did well throughout the colonoscopy, and was found to only have small internal hemorrhoids, but no significant findings. Upon discharge from the GI lab, he was unable to eat dinner, and developed worsening symptoms of nausea and vomiting. He was also noted to have uncontrolled hypertension. He returned to the ER, and was subsequently admitted. He was given antiemetics and at the time I saw him this afternoon, he had a complete resolution of his nausea and vomiting. He was asking for something to eat. He denies any fevers, chills, abdominal pain, melena, hematochezia or hematemesis. He has no further complaints. Allergies Allergy/AdvReac Type Severity Reaction Status Date / Time shellfish derived Allergy Severe anaphylaxis Verified 07/13/19 14:46 codeine Allergy Intermediate Hives Verified 07/13/19 14:46 promethazine Allergy Intermediate itchy/hives Verified 07/13/19 14:46 Home Medications Home Medications Medication Instructions Recorded Confirmed Type Beals Caps 1 cap PO QAM 12/19/18 07/13/19 History sertraline 100 mg PO QAM 03/21/19 07/13/19 History bupropion HCl 100 mg tablet,12 hr 100 mg PO QAM ea 04/14/19 07/13/19 History sustained-release lorazepam 0.5 mg tablet 0.5 mg PO Q6H PRN 04/27/19 07/13/19 History ondansetron 4 mg disintegrating 4 mg PO Q6H PRN 04/27/19 07/13/19 History tablet Contour Next Test Strips #240 ea NS 05/04/19 07/05/19 Rx Basaglar KwikPen U-100 Insulin 18 units SQ QAM 05/16/19 07/13/19 History calcium acetate 667 mg PO DIRECTED MDD 7 05/31/19 07/13/19 History CAPSULES/DAILY famotidine 20 mg tablet 20 mg PO 3XWK #90 tab 06/10/19 07/13/19 Rx carvedilol 25 mg tablet 25 mg PO BID tab 06/16/19 07/13/19 History amlodipine 10 mg PO QAM 06/21/19 07/13/19 History atorvastatin 10 mg PO QAM 06/21/19 07/13/19 History losartan 75 mg PO QAM 06/21/19 07/13/19 History metoclopramide HCl 5 mg PO ACHS 06/21/19 07/13/19 History BD Ultra-Fine Annalise Pen Needle 32 #800 ea NS 07/11/19 Rx gauge x " acetaminophen [Acetaminophen Extra 500 mg PO Q6H PRN MDD 3000 MG/DAY 07/13/19 07/13/19 History Strength] polyethylene glycol 3350 17 g PO DAILY 07/13/19 07/13/19 History sennosides-docusate sodium [Senna 1 tab-cap PO BID 07/13/19 07/13/19 History with Docusate Sodium] Patient History Medical History Anxiety AV fistula left arm CAD (coronary artery disease) mild, non-obstructive CAD per 10/2018 cardiac cath> FOLLOWS [facility] Depression Diabetes mellitus type I (Chronic) Diabetic neuropathy Diabetic retinopathy ESRD (end stage renal disease) Hemodialysis via permacath RIGHT CHEST M,W,F (Follows with Dr. Taylor Higgins; [facility]) Gastroparesis (Chronic) GERD (gastroesophageal reflux disease) Heart failure with reduced ejection fraction (Chronic) Hypertension Kidney stones Surgical History H/O shoulder surgery RIGHT History of appendectomy History of cardiac cath 10/2018= no stents, no obstructive disease (at [facility]) History of esophagogastroduodenoscopy (EGD) History of hip surgery LEFT HIP ARTHROSCOPY History of lithotripsy History of open reduction and internal fixation (ORIF) procedure right hip Nausea and vomiting after administration of anesthetic agent Permanent central venous catheter in place Permacath S/P arteriovenous (AV) fistula creation left arm Family History Grandfather Myocardial infarction Grandfather (Maternal) Family history of diabetes mellitus Uncle Myocardial infarction Social History Preferred Language: Vietnamese Communication Ability: Effective Visual Impairment: No Limitations Hearing Ability: Normal Electrician Chief Required: No Beliefs That Will Affect Care: None marital status: Single Current Living Situation: Parent Current Living Situation Comment: CURRENT : [facility] current occupational status: unemployed Feels Safe at Home: Yes Smoking Status: Never smoker Tobacco Type: smokeless tobacco ; Second Hand Exposure: No (QUIT 02/2019) ; Hx Alcohol Use: No Hx Substance Use: No Childhood Exposure to Second-Hand Smoke: Yes Dental Care, Regularly: No Physical Activity Frequency: 1-2 Times per Week Seatbelt Use: always Sunscreen Use: No Review of Systems Review of Systems: All systems reviewed & are unremarkable except as noted in HPI & below Physical Exam Constitutional: + ill appearing (Chronic ill-appearing) Eyes: PERRL, conjunctivae normal, anicteric sclerae ENMT: external ear and nose normal, oropharynx normal Neck: trachea midline, no thyromegaly Respiratory: normal respiratory effort, lungs clear to auscultation Cardiovascular: RRR, no murmur, no edema Gastrointestinal (Abdomen): normal bowel sounds, soft, nontender, no hepatosplenomegaly Skin: no rashes, warm and dry Psychiatric: Orientation: alert and oriented x 3 Mood: + anxious mood Results & Data Vital Signs (Past 12 Hours) Vital Signs Temp Pulse Pulse Resp BP Pulse Ox Pulse Ox 07/14/19 15:21 36.8 C 91 H 16 140/74 97 07/14/19 11:39 37.1 C 101 H 19 168/95 H 100 07/14/19 08:07 37.0 C 96 H 17 191/86 H 98 07/14/19 08:00 93 H 98 07/14/19 04:10 37.0 C 96 H 20 180/88 H 100 PG Care Time/CCT Total # of Minutes Spent Total Time Spent with Patient: Total time spent is greater than 50% in coordination of care (as documented) at patient's floor/unit and/or counseling patient: Coding Level of Care Code 44073 Office/OBS Consult Lvl 3 Diagnoses Nausea R11.0 Vomiting R11.10 Nausea presence: unspecified Vomiting Intractability: unspecified Vomiting type: unspecified (1) Vomiting Nausea presence: unspecified Vomiting Intractability: unspecified Vomiting type: unspecified Qualified Code(s): R11.10 - Vomiting, unspecified
--- NOTE | 2019-07-14 15:54 | Hospitalist Progress Note ---
Date of Service July 14, 2019 Assessment & Plan (1) Hypertensive urgency: BP better on Enalaprit IV, continue today as not tolerating PO medications use additional Enalaprit PRN, Labetalol PRN BP 140/74 most recent check (2) Vomiting: due to well established gastroparesis due to diabetes continue Zofran, Reglan PRN (3) Acute hypokalemia: resolved, K up to 3.8 today will be managed with HD tomorrow (4) Severe protein-calorie malnutrition: due to repeated bouts of vomiting with gastroparesis encourage protein intake once he can eat advanced to renal diet this evening (5) ESRD (end stage renal disease): no indication for emergent HD plan for HD tomorrow Dr. Guadalupe following (6) Depression: mood stable (7) Diabetes mellitus type I: continue insulin regimen, sugars acceptable Subjective patient feeling a little better today, less nausea he is requesting to advance diet no abdominal pain, no chest pain, no dyspnea plan for HD tomorrow appreciate nephrology consultation, IV Enalaprit ordered for blood pressure, better today sugars are reasonable in the 200s Review of Systems Review of Systems: All systems reviewed & are unremarkable except as noted in HPI & below Constitutional: + fatigue and + weakness; no fever Respiratory: no cough and no dyspnea Cardiovascular: no chest pain and no edema Gastrointestinal: + nausea and + vomiting; no abdominal pain, no constipation and no diarrhea/loose stools Physical Exam Constitutional: well developed, + ill appearing and + thin; no acute distress Eyes: PERRL, conjunctivae normal, anicteric sclerae ENMT: external ear and nose normal, oropharynx normal Neck: trachea midline, no thyromegaly Respiratory: normal respiratory effort, lungs clear to auscultation Cardiovascular: RRR, no murmur, no edema Gastrointestinal (Abdomen): normal bowel sounds, soft, nontender, no hepatosplenomegaly Musculoskeletal: no cyanosis or clubbing, extremities motor strength 5/5 Skin: no rashes, warm and dry Neurologic: patellar DTR's 2+ bilat, sensation intact and PERRL, EOMI, accommodation nl, no face palsy, no dysarthria Psychiatric: Orientation: alert and oriented x 3 Affect: + depressed affect Mood: + depressed mood Lymphatic: no cervical or axillary lymphadenopathy Results & Data ([facility]) Vital Signs (Past 12 Hours) Vital Signs Temp Pulse Pulse Resp BP Pulse Ox Pulse Ox 07/14/19 15:31 96 H 07/14/19 15:21 36.8 C 91 H 16 140/74 97 07/14/19 11:39 37.1 C 101 H 19 168/95 H 100 07/14/19 08:07 37.0 C 96 H 17 191/86 H 98 07/14/19 08:00 93 H 98 07/14/19 04:10 37.0 C 96 H 20 180/88 H 100 Laboratory Results Laboratory Results - last 24 hr 07/13/19 07/13/19 07/14/19 19:49 19:49 00:32 WBC 9.23 RBC 4.03 L Hgb 12.8 L Hct 37.5 L MCV 93.1 MCH 31.8 MCHC 34.1 RDW Std Deviation 48.6 H RDW Coeff of Kami 14.9 H Plt Count 281 MPV 8.1 Immature Gran % (Auto) 0.2 Neut % (Auto) 76.6 Lymph % (Auto) 11.6 [place] % (Auto) 10.7 Eos % (Auto) 0.5 Baso % (Auto) 0.4 Immature Gran # (Auto) 0.02 Neut # (Auto) 7.06 H Lymph # (Auto) 1.07 L [place] # (Auto) 0.99 H Eos # (Auto) 0.05 Baso # (Auto) 0.04 Sodium 134 L Potassium 3.3 L Chloride 97 L Carbon Dioxide 25 Anion Gap 11.0 BUN 13 Creatinine 3.53 H Est Cr Clr Drug Dosing 23.8 Est GFR ( Amer) 22.4 Est GFR (Non-Af Amer) 19.3 BUN/Creatinine Ratio 3.7 L Glucose 191 H POC Glucose 318 H* Calcium 8.9 Phosphorus Magnesium Total Bilirubin 0.5 AST 18 ALT 32 Alkaline Phosphatase 110 Total Protein 7.4 Albumin 3.9 Globulin 3.5 Albumin/Globulin Ratio 1.1 Lipase 68 L Hep Bs Antigen Hep Bs Antibody Hep Bs Antibody, Quant 07/14/19 07/14/19 07/14/19 03:03 06:11 07:12 WBC 12.09 H RBC 3.66 L Hgb 11.4 L Hct 35.0 L MCV 95.6 MCH 31.1 MCHC 32.6 RDW Std Deviation 50.5 H RDW Coeff of Kami 15.3 H Plt Count 253 MPV 8.3 Immature Gran % (Auto) 0.4 Neut % (Auto) 85.6 Lymph % (Auto) 7.4 [place] % (Auto) 6.5 Eos % (Auto) 0.0 Baso % (Auto) 0.1 Immature Gran # (Auto) 0.05 H Neut # (Auto) 10.34 H Lymph # (Auto) 0.90 L [place] # (Auto) 0.79 H Eos # (Auto) 0.00 Baso # (Auto) 0.01 Sodium Potassium Chloride Carbon Dioxide Anion Gap BUN Creatinine Est Cr Clr Drug Dosing Est GFR ( Amer) Est GFR (Non-Af Amer) BUN/Creatinine Ratio Glucose POC Glucose 305 H* 238 H Calcium Phosphorus Magnesium Total Bilirubin AST ALT Alkaline Phosphatase Total Protein Albumin Globulin Albumin/Globulin Ratio Lipase Hep Bs Antigen Hep Bs Antibody Hep Bs Antibody, Quant 07/14/19 07/14/19 07/14/19 07:12 10:38 11:41 WBC RBC Hgb Hct MCV MCH MCHC RDW Std Deviation RDW Coeff of Kami Plt Count MPV Immature Gran % (Auto) Neut % (Auto) Lymph % (Auto) [place] % (Auto) Eos % (Auto) Baso % (Auto) Immature Gran # (Auto) Neut # (Auto) Lymph # (Auto) [place] # (Auto) Eos # (Auto) Baso # (Auto) Sodium 134 L Potassium 3.8 D Chloride 99 Carbon Dioxide 24 Anion Gap 11.0 BUN 20 H D Creatinine 4.38 H D Est Cr Clr Drug Dosing 19.2 Est GFR ( Amer) 17.2 Est GFR (Non-Af Amer) 14.9 BUN/Creatinine Ratio 4.6 L Glucose 246 H POC Glucose 271 H Calcium 8.6 Phosphorus 2.2 L Magnesium 1.9 Total Bilirubin AST ALT Alkaline Phosphatase Total Protein Albumin Globulin Albumin/Globulin Ratio Lipase Hep Bs Antigen Neg Hep Bs Antibody Immune Hep Bs Antibody, Quant 143.50 Medications Administered Current Inpatient Medications Dextrose (Dextrose 50%) 25 - 50 ml IV UD PRN; Protocol PRN Reason: Hypoglycemia Protocol Stop: 08/13/19 00:04 Diphenhydramine HCl (Benadryl) 50 mg IV Q8H PRN PRN Reason: Documentation Stop: 08/13/19 00:04 Glucagon (Glucagen) 1 mg SQ UD PRN; Protocol PRN Reason: Hypoglycemia Protocol Stop: 08/13/19 00:04 Glucose (Dex4 Glucose) 4 - 8 tabs PO UD PRN; Protocol PRN Reason: Hypoglycemia Protocol Stop: 08/13/19 00:04 Glucose (Glucose 40%) 15 - 30 gm PO UD PRN; Protocol PRN Reason: Hypoglycemia Protocol Stop: 08/13/19 00:04 Hydralazine HCl (Hydralazine Hcl) 10 mg IV Q4H PRN PRN Reason: Hypertension Stop: 08/13/19 07:19 Lorazepam (Ativan) 0.5 mg in 1 mls @ 1 mls/min IV Q6H PRN PRN Reason: Anxiety Stop: 08/13/19 00:04 Famotidine 20 mg/ Syringe 5 mls @ 2.5 mls/min IV Q2D@2200 JACKI Stop: 08/13/19 00:04 Last Admin: 07/14/19 00:35 Dose: 2.5 mls/min Documented by: Sodium Chloride (Nss 1000ml) 1,000 mls @ 40 mls/hr IV .Q24H JACKI Stop: 08/13/19 00:04 Last Infusion: 07/14/19 08:03 Dose: 40 mls/hr Documented by: Enalaprilat 1.25 mg/ Dextrose 26 mls @ 100 mls/hr IV Q6H JACKI Stop: 08/13/19 07:59 Last Infusion: 07/14/19 15:00 Dose: Infused Documented by: Enalaprilat 1.25 mg/ Dextrose 26 mls @ 100 mls/hr IV Q4H PRN PRN Reason: Hypertension Stop: 08/13/19 07:59 Insulin Human Regular (Novolin R) 0 units SC Q6 JACKI; Protocol Stop: 08/13/19 11:59 Last Admin: 07/14/19 13:10 Dose: 4 units Documented by: Insulin Human Regular (Novolin R) 0 units SC Q6 JACKI; Protocol Stop: 08/13/19 11:59 Last Admin: 07/14/19 13:10 Dose: 5 units Documented by: Labetalol HCl (Normodyne) 10 mg IV Q4H PRN PRN Reason: Blood Pressure - High Stop: 08/13/19 00:04 Last Admin: 02/06/20 04:05 Dose: 10 mg Documented by: Metoclopramide HCl (Reglan) 10 mg IV Q6H PRN PRN Reason: Nausea Stop: 08/13/19 00:04 Miscellaneous (Carbohydrates For Hypoglycemia) 15 - 30 gm PO UD PRN PRN Reason: Hypoglycemia Protocol Stop: 08/13/19 00:04 Miscellaneous Information (Consult Glycemic Management Pharmacy) 1 ea N/A UD PRN; Protocol PRN Reason: Consult Stop: 08/13/19 00:53 Ondansetron HCl (Zofran) 4 mg IV Q6H PRN PRN Reason: Nausea Stop: 08/13/19 00:04 Last Admin: 07/14/19 10:38 Dose: 4 mg Documented by: PG Care Time/CCT Total # of Minutes Spent Total Time Spent with Patient: Total time spent is greater than 50% in coordination of care (as documented) at patient's floor/unit and/or counseling patient: Coding Level of Care Code 83797 Subseq Hosp Care Lvl 3 Diagnoses Hypertensive urgency I16.0 Vomiting R11.10 Nausea presence: unspecified Vomiting Intractability: unspecified Vomiting type: unspecified Acute hypokalemia E87.6 Severe protein-calorie malnutrition E43 ESRD (end stage renal disease) N18.6 Depression F32.9 Diabetes mellitus type I E10.9 (1) Vomiting Nausea presence: unspecified Vomiting Intractability: unspecified Vomiting type: unspecified Qualified Code(s): R11.10 - Vomiting, unspecified
[2019-07-14] MEDS: CARBOHYDRATES FOR HYPOGLYCEMIA PO PRN ×2 (19:20→19:37)
[2019-07-14 20:22] LABS: Appearance Urine Clear (Clear); Bacteria Urine Automated Negative (Negative); Bilirubin Urine Negative (Negative); Blood Urine Trace (Negative); Cast Urine Automated 0 /lpf (0-5); Color Urine Yellow; Glucose Urine UA 2+ (Negative); Ketones Urine Trace (Negative); Leukocyte Esterase Urine Negative (Negative); Nitrite Urine Negative (Negative); RBC Urine Automated 0-4 /hpf (0-4); Specific Gravity Urine 1.013 (1.000-1.030); Urobilinogen Urine Negative (Negative)
[2019-07-14 20:26] LABS: Protein Urine 3+ (Negative)
[2019-07-14 20:28] LABS: Sulfosalicylic Acid Urine Positive (Negative)
[2019-07-15] MEDS: INSULIN HUMAN REGULAR SC SCH ×11 (00:16→21:04)
[2019-07-15] MEDS: ENALAPRILAT 1.25 MG in DEXTROSE 5% 25 ML IV SCH ×4 (02:02→20:10)
[2019-07-15] MEDS ORDERED: SODIUM CHLORIDE 0.9% 1000ML 1,000 ML IV PRN (06:54)
[2019-07-15] MEDS ORDERED: HEPARIN SOD (PORCINE) 1000 UNIT/ML 10 ML VIAL IV SCH (07:00)
[2019-07-15] MEDS: HEPARIN SOD (PORCINE) 1000 UNIT/ML 10 ML VIAL IV SCH ×3 (10:20→12:10)
[2019-07-15] MEDS: ONDANSETRON INJ 2 MG/ML 2 ML VIAL IV PRN ×2 (12:02→22:54)
[2019-07-15] MEDS: LABETALOL HCL IV 5 MG/ML 20ML IV PRN ×2 (12:02→17:39)
--- NOTE | 2019-07-15 13:10 | Pharmacy Report ---
Pharmacy Glycemic Short Note 2 - Date of Service July 15, 2019 - Glycemic Short BSG Results (Last 24 hours): 07/14/19 07/14/19 07/14/19 17:01 19:16 19:19 POC Glucose 142 H 41 L* 41 L* 07/14/19 07/14/19 07/15/19 19:35 20:01 00:02 POC Glucose 62 L* 95 290 H 07/15/19 07/15/19 07/15/19 01:57 06:02 07:23 POC Glucose 296 H 149 H 144 H 07/15/19 10:13 POC Glucose 162 H OUTPATIENT ANTIDIABETIC REGIMEN: * Basaglar 18 units Q AM * ASSESSMENT: 07/15 * Glycemic control improved thus far today * Patient did experience an episode of severe hypoglycemia yesterday following 1200 Regular insulin dose of 9 units, in retrospect pt should have received only 6 units (4 units scheduled Reg + 2 units correctional Reg insulin). * Of note, pt's diet has bee advanced * Will continue the current orders at this time - again, based upon past experience with the current regimen * Will reevaluate tomorrow 07/14 * Type 1 diabetic, known to Glycemic Control Service from prior admissions, ad mitted for intractable nausea and vomiting, elevated BP * This AM's labs reviewed, pt is hyperglycemic however AG and Bicarb normal * Will utilize an insulin regimen that has performed well for this patient on prior admissions. Although this regimen is unconventional it seems to work for this patient. We utilize Q 6 hr Regular insulin 2-4 units to provide basal insulin needs rather than his usual basal insulin. On top of this scheduled dose, we will also provide correctional insulin. * Patient is currently NPO. If he remains NPO for a prolonged period of time, one may need to add dextrose to his IVFs to allow for continued insulin administration. PLAN FOR INPATIENT GLYCEMIC CONTROL: * Basal insulin: * REGULAR insulin Q 6 hrs * 2 units if BSG < 110 * 3 units if BSG 110-150 * 4 units if BSG > 150 * Bolus insulin * REGULAR insulin * Goal range: 110-150 * Correction factor: 30mg/dL/unit * Carb ratio: none (given pt's NV and inconsistent PO intake and grazing habits, counting carbs is difficult) * Consider provision of dextrose in IVFs if patient's PO intake remains poor and BSG falling below goal PLAN FOR DISCHARGE: * to be determined
--- NOTE | 2019-07-15 13:19 | Dialysis Progress Note ---
Date of Service July 15, 2019 Assessment & Plan (1) Hypertensive urgency: Systolic blood pressures running the 180s to 220s at admission; then improved w/ iv meds and control of GI symptoms; then recurred with nausea and vomiting today. Hypertensive urgency in the setting of intractable nausea and vomiting, so oral medications not a good option here. -stopped NS as he is taking PO; pls restart at no more than 40 mL/hr if NPO again -Standing/prn orders in for enaliprilat and hydralazine both IV w/ hold parameters; continue PRN labetalol -Goal systolic blood pressure is 150s to 170s today >> note that through the day blood pressures have improved when not nauseous Aggressive fluid removal goal will also help with managing hypertension: Aiming for 2 L today -Defer to primary service to continue efforts to control nausea and vomiting as well as anxiety which can also worsen his hypertension (2) ESRD on dialysis: Routine hemodialysis today for 4 hours on a 3K bath with mini heparin. No anemia medications necessary. Next hemodialysis planned July 18 Subjective Seen on dialysis; had eaten a good breakfast and was doing well but developed nausea and dry heaves on treatment. Received medication: Waiting to see if it will have effect. Otherwise no musculoskeletal pain, shortness of breath, chest pain, acute visual changes, headache or confusion Review of Systems Review of Systems: All systems reviewed & are unremarkable except as noted in HPI & below Physical Exam Constitutional: well developed, well nourished, + acute distress (On room air; mild distress with nausea and dry heaves), + thin and cooperative Eyes: EOM intact bilaterally ENMT: Ears: no external ear abnormality Nose: no external nose abnormality Mouth: + dry oral mucous membranes Neck: no nuchal rigidity Respiratory: normal respiratory effort Auscultation: lungs clear to auscultation bilaterally and + diminished lung sounds Cardiovascular: RRR, no murmur, no edema Extremities: + AV fistula (Maturing) Gastrointestinal (Abdomen): Inspection/Auscultation: normal bowel sounds Percussion/Palpation: abdomen soft; abdomen nontender Musculoskeletal: Extremities: strength 5/5 throughout Skin: no rashes, warm and dry Neurologic: spicer, fluent speech, no tremor Psychiatric: A+Ox3, euthymic affect Results & Data Vital Signs (Past 12 Hours) Vital Signs Temp Pulse Pulse Pulse Resp BP BP 07/15/19 13:00 92 H 224/114 H 07/15/19 12:40 91 H 209/114 H 07/15/19 12:20 92 H 215/113 H 07/15/19 12:00 100 H 220/120 H 07/15/19 11:40 88 202/104 H 07/15/19 11:20 92 H 187/102 H 07/15/19 11:00 93 H 173/101 H 07/15/19 10:40 92 H 190/101 H 07/15/19 10:20 89 192/99 H 07/15/19 10:00 88 176/99 H 07/15/19 09:40 88 173/93 H 07/15/19 09:20 86 173/93 H 07/15/19 09:14 37.3 C 86 07/15/19 07:25 36.8 C 83 17 171/85 H 07/15/19 07:00 83 07/15/19 04:05 36.9 C 87 17 160/89 H Pulse Ox 07/15/19 13:00 07/15/19 12:40 07/15/19 12:20 07/15/19 12:00 07/15/19 11:40 07/15/19 11:20 07/15/19 11:00 07/15/19 10:40 07/15/19 10:20 07/15/19 10:00 07/15/19 09:40 07/15/19 09:20 07/15/19 09:14 07/15/19 07:25 92 07/15/19 07:00 07/15/19 04:05 95 Laboratory Results 07/14/19 07:12 07/14/19 07:12
[2019-07-15] MEDS: METOCLOPRAMIDE HCL INJ 5 MG/ML 2 ML VIAL IV PRN ×2 (13:36→20:07)
[2019-07-15] MEDS ORDERED: ONDANSETRON INJ 2 MG/ML 2 ML VIAL IV ONE (15:00)
[2019-07-15] MEDS ORDERED: LORazepam 1 MG/2 ML VIAL IV STA (16:30)
--- NOTE | 2019-07-15 16:31 | Hospitalist Progress Note ---
Date of Service July 15, 2019 Assessment & Plan (1) Hypertensive urgency: BP better on Enalaprit IV, continue today as not tolerating PO medications use additional Enalaprit PRN, Labetalol PRN BP was better in AM, then went up during HD use IV meds but requested RN try to resume PO medications, pre-medicate with Zofran provided a dose of Ativan IV since Reglan and Zofran not cutting it follow BP closely (2) Vomiting: due to well established gastroparesis due to diabetes continue Zofran, Reglan PRN will give a dose of Ativan 1mg IV and look for improvement (3) Acute hypokalemia: resolved, K managed via HD (4) Severe protein-calorie malnutrition: due to repeated bouts of vomiting with gastroparesis encourage protein intake once he can eat advanced to renal diet ongoing issue (5) ESRD (end stage renal disease): no indication for emergent HD on admission had HD on 07/15 with nausea/vomiting, hypertension Dr. Guadalupe following (6) Depression: mood stable (7) Diabetes mellitus type I: continue insulin regimen, sugars acceptable Subjective patient was doing well in the morning, ate his entire breakfast lali for HD and experienced nausea and vomiting, elevated blood pressures RN had to give him Zofran, Reglan, Labetalol could not keep food down this afternoon labs reviewed, stable wanted to try for oral BP meds, still with too much nausea no chest pain, no dyspnea Review of Systems Review of Systems: All systems reviewed & are unremarkable except as noted in HPI & below Gastrointestinal: + nausea and + vomiting (More dry heaves than emesis ); no abdominal pain, no constipation and no diarrhea/loose stools Physical Exam Constitutional: well developed, + ill appearing and + thin; no acute distress Eyes: PERRL, conjunctivae normal, anicteric sclerae ENMT: external ear and nose normal, oropharynx normal Neck: trachea midline, no thyromegaly Respiratory: normal respiratory effort, lungs clear to auscultation Cardiovascular: RRR, no murmur, no edema Gastrointestinal (Abdomen): normal bowel sounds, soft, nontender, no hepatosplenomegaly Musculoskeletal: no cyanosis or clubbing, extremities motor strength 5/5 Skin: no rashes, warm and dry Neurologic: patellar DTR's 2+ bilat, sensation intact and PERRL, EOMI, accommodation nl, no face palsy, no dysarthria Psychiatric: Orientation: alert and oriented x 3 Affect: + depressed affect Mood: + depressed mood Lymphatic: no cervical or axillary lymphadenopathy Results & Data ([facility]) Vital Signs (Past 12 Hours) Vital Signs Temp Pulse Pulse Pulse Resp BP BP 07/15/19 15:48 93 H 07/15/19 15:06 36.5 C 91 H 16 195/91 H 07/15/19 14:21 192/87 H 07/15/19 13:00 92 H 224/114 H 07/15/19 12:40 91 H 209/114 H 07/15/19 12:20 92 H 215/113 H 07/15/19 12:00 100 H 220/120 H 07/15/19 11:40 88 202/104 H 07/15/19 11:20 92 H 187/102 H 07/15/19 11:00 93 H 173/101 H 07/15/19 10:40 92 H 190/101 H 07/15/19 10:20 89 192/99 H 07/15/19 10:00 88 176/99 H 07/15/19 09:40 88 173/93 H 07/15/19 09:20 86 173/93 H 07/15/19 09:14 37.3 C 86 07/15/19 07:25 36.8 C 83 17 171/85 H 07/15/19 07:00 83 Pulse Ox 07/15/19 15:48 07/15/19 15:06 96 07/15/19 14:21 07/15/19 13:00 07/15/19 12:40 07/15/19 12:20 07/15/19 12:00 07/15/19 11:40 07/15/19 11:20 07/15/19 11:00 07/15/19 10:40 07/15/19 10:20 07/15/19 10:00 07/15/19 09:40 07/15/19 09:20 07/15/19 09:14 07/15/19 07:25 92 07/15/19 07:00 Laboratory Results Laboratory Results - last 24 hr 07/14/19 07/14/19 07/14/19 17:01 19:16 19:19 POC Glucose 142 H 41 L* 41 L* Urine Color Urine Appearance Urine pH Ur Specific [place] Urine Protein Urine Glucose (UA) Urine Ketones Urine Blood Urine Nitrite Urine Bilirubin Urine Urobilinogen Ur Leukocyte Esterase Urine WBC (Auto) Urine RBC (Auto) U Hyaline Cast (Auto) U Epithel Cells (Auto) Urine Bacteria (Auto) 07/14/19 07/14/19 07/14/19 19:35 20:00 20:01 POC Glucose 62 L* 95 Urine Color Yellow Urine Appearance Clear Urine pH 8.0 H Ur Specific [place] 1.013 Urine Protein 3+ H Urine Glucose (UA) 2+ H Urine Ketones Trace H Urine Blood Trace H Urine Nitrite Negative Urine Bilirubin Negative Urine Urobilinogen Negative Ur Leukocyte Esterase Negative Urine WBC (Auto) 1-5 Urine RBC (Auto) 0-4 U Hyaline Cast (Auto) 0 U Epithel Cells (Auto) 5-10 H Urine Bacteria (Auto) Negative 07/15/19 07/15/19 07/15/19 00:02 01:57 06:02 POC Glucose 290 H 296 H 149 H Urine Color Urine Appearance Urine pH Ur Specific [place] Urine Protein Urine Glucose (UA) Urine Ketones Urine Blood Urine Nitrite Urine Bilirubin Urine Urobilinogen Ur Leukocyte Esterase Urine WBC (Auto) Urine RBC (Auto) U Hyaline Cast (Auto) U Epithel Cells (Auto) Urine Bacteria (Auto) 07/15/19 07/15/19 07/15/19 07:23 10:13 13:44 POC Glucose 144 H 162 H 219 H Urine Color Urine Appearance Urine pH Ur Specific [place] Urine Protein Urine Glucose (UA) Urine Ketones Urine Blood Urine Nitrite Urine Bilirubin Urine Urobilinogen Ur Leukocyte Esterase Urine WBC (Auto) Urine RBC (Auto) U Hyaline Cast (Auto) U Epithel Cells (Auto) Urine Bacteria (Auto) 07/15/19 16:05 POC Glucose 210 H Urine Color Urine Appearance Urine pH Ur Specific [place] Urine Protein Urine Glucose (UA) Urine Ketones Urine Blood Urine Nitrite Urine Bilirubin Urine Urobilinogen Ur Leukocyte Esterase Urine WBC (Auto) Urine RBC (Auto) U Hyaline Cast (Auto) U Epithel Cells (Auto) Urine Bacteria (Auto) Medications Administered Current Inpatient Medications Amlodipine Besylate (Norvasc) 10 mg PO QAM [facility] Stop: 08/14/19 14:59 Carvedilol (Coreg) 25 mg PO BIDM [facility] Stop: 08/14/19 16:59 Dextrose (Dextrose 50%) 25 - 50 ml IV UD PRN; Protocol PRN Reason: Hypoglycemia Protocol Stop: 08/13/19 00:04 Diphenhydramine HCl (Benadryl) 50 mg IV Q8H PRN PRN Reason: Documentation Stop: 08/13/19 00:04 Glucagon (Glucagen) 1 mg SQ UD PRN; Protocol PRN Reason: Hypoglycemia Protocol Stop: 08/13/19 00:04 Glucose (Dex4 Glucose) 4 - 8 tabs PO UD PRN; Protocol PRN Reason: Hypoglycemia Protocol Stop: 08/13/19 00:04 Glucose (Glucose 40%) 15 - 30 gm PO UD PRN; Protocol PRN Reason: Hypoglycemia Protocol Stop: 08/13/19 00:04 Heparin Sodium (Porcine) (Heparin Iv Bolus) 1,000 units IV TODAY@0700 [facility] Stop: 07/15/19 23:59 Last Admin: 07/15/19 09:16 Dose: Not Given Documented by: Heparin Sodium (Porcine) (Heparin Iv Bolus) 400 units IV TODAY@0700,0800,0900 JACKI Stop: 07/15/19 23:59 Last Admin: 07/15/19 12:10 Dose: Not Given Documented by: Hydralazine HCl (Hydralazine Hcl) 10 mg IV Q4H PRN PRN Reason: Hypertension Stop: 08/13/19 07:19 Lorazepam (Ativan) 0.5 mg in 1 mls @ 1 mls/min IV Q6H PRN PRN Reason: Anxiety Stop: 08/13/19 00:04 Famotidine 20 mg/ Syringe 5 mls @ 2.5 mls/min IV Q2D@2200 JACKI Stop: 08/13/19 00:04 Last Admin: 07/14/19 21:45 Dose: 2.5 mls/min Documented by: Enalaprilat 1.25 mg/ Dextrose 26 mls @ 100 mls/hr IV Q6H JACKI Stop: 08/13/19 07:59 Last Infusion: 07/15/19 13:55 Dose: Infused Documented by: Enalaprilat 1.25 mg/ Dextrose 26 mls @ 100 mls/hr IV Q4H PRN PRN Reason: Hypertension Stop: 08/13/19 07:59 Lorazepam (Ativan) 1 mg in 2 mls @ 2 mls/min IV NOW STA Stop: 07/15/19 16:31 Insulin Human Regular (Novolin R) 0 units SC Q6 JACKI; Protocol Stop: 08/13/19 11:59 Last Admin: 07/15/19 13:54 Dose: Not Given Documented by: Insulin Human Regular (Novolin R) 0 units SC ACHS JACKI; Protocol Stop: 08/14/19 07:29 Last Admin: 07/15/19 13:52 Dose: 3 units Documented by: Labetalol HCl (Normodyne) 10 mg IV Q4H PRN PRN Reason: Blood Pressure - High Stop: 08/13/19 00:04 Last Admin: 07/15/19 12:02 Dose: 10 mg Documented by: Losartan Potassium (Cozaar) 75 mg PO QAM JACKI Stop: 08/14/19 14:59 Metoclopramide HCl (Reglan) 10 mg IV Q6H PRN PRN Reason: Nausea Stop: 08/13/19 00:04 Last Admin: 07/15/19 13:36 Dose: 10 mg Documented by: Miscellaneous (Carbohydrates For Hypoglycemia) 15 - 30 gm PO UD PRN PRN Reason: Hypoglycemia Protocol Stop: 08/13/19 00:04 Last Admin: 07/14/19 19:37 Dose: 15 gm Documented by: Miscellaneous Information (Consult Glycemic Management Pharmacy) 1 ea N/A UD PRN; Protocol PRN Reason: Consult Stop: 08/13/19 00:53 Ondansetron HCl (Zofran) 4 mg IV Q6H PRN PRN Reason: Nausea Stop: 08/13/19 00:04 Last Admin: 07/15/19 12:02 Dose: 4 mg Documented by: PG Care Time/CCT Total # of Minutes Spent Total Time Spent with Patient: Total time spent is greater than 50% in coordination of care (as documented) at patient's floor/unit and/or counseling patient: Coding Level of Care Code 50436 Subseq Hosp Care Lvl 2 Diagnoses Hypertensive urgency I16.0 Vomiting R11.10 Nausea presence: unspecified Vomiting Intractability: unspecified Vomiting type: unspecified Acute hypokalemia E87.6 Severe protein-calorie malnutrition E43 ESRD (end stage renal disease) N18.6 Depression F32.9 Diabetes mellitus type I E10.9 (1) Vomiting Nausea presence: unspecified Vomiting Intractability: unspecified Vomiting type: unspecified Qualified Code(s): R11.10 - Vomiting, unspecified
[2019-07-15] MEDS: AMLODIPINE BESYLATE 5 MG TAB PO SCH (16:52)
[2019-07-15] MEDS: LOSARTAN POTASSIUM 25 MG TAB PO SCH (16:52)
[2019-07-15] MEDS: carvediloL 25 MG TAB PO SCH (17:36)
[2019-07-16] MEDS: INSULIN HUMAN REGULAR SC SCH ×3 (00:09→08:14)
[2019-07-16] MEDS: ENALAPRILAT 1.25 MG in DEXTROSE 5% 25 ML IV SCH ×2 (01:59→08:11)
[2019-07-16] MEDS ORDERED: PROCHLORPERAZINE 5 MG in SYRINGE 4 ML IV PRN (04:37)
--- NOTE | 2019-07-16 04:40 | Billing Data ---
Date of Service July 16, 2019 Coding Level of Care Code 67262 Initial Inpt Care Lvl 3
[2019-07-16] MEDS: AMLODIPINE BESYLATE 5 MG TAB PO SCH (08:10)
[2019-07-16] MEDS: carvediloL 25 MG TAB PO SCH (08:11)
[2019-07-16] MEDS: LOSARTAN POTASSIUM 25 MG TAB PO SCH (08:12)
--- NOTE | 2019-07-16 11:16 | Pharmacy Report ---
Pharmacy Glycemic Short Note 2 - Date of Service July 16, 2019 - Glycemic Short BSG Results (Last 24 hours): 07/15/19 07/15/19 07/15/19 13:44 16:05 17:13 POC Glucose 219 H 210 H 197 H 07/15/19 07/15/19 07/16/19 20:25 22:51 00:03 POC Glucose 214 H 185 H 170 H 07/16/19 07/16/19 05:50 07:25 POC Glucose 249 H 225 H OUTPATIENT ANTIDIABETIC REGIMEN: * Basaglar 18 units Q AM * Novolog ASSESSMENT: 07/16 * Glycemic control continues to vary throughout the day * Pt received 13 units of regular insulin yesterday. He refused his scheduled dose of insulin at lunchtime (4 units) and dinnertime (4 units). This is likely the cause of BSGs > 200 mg/dL last evening. I am hesitant to increase insulin doses given this information. * Continue same regimen for now 07/15 * Glycemic control improved thus far today * Patient did experience an episode of severe hypoglycemia yesterday following 1200 Regular insulin dose of 9 units, in retrospect pt should have received only 6 units (4 units scheduled Reg + 2 units correctional Reg insulin). * Of note, pt's diet has bee advanced * Will continue the current orders at this time - again, based upon past experience with the current regimen * Will reevaluate tomorrow 07/14 * Type 1 diabetic, known to Glycemic Control Service from prior admissions, admitted for intractable nausea and vomiting, elevated BP * This AM's labs reviewed, pt is hyperglycemic however AG and Bicarb normal * Will utilize an insulin regimen that has performed well for this patient on prior admissions. Although this regimen is unconventional it seems to work for this patient. We utilize Q 6 hr Regular insulin 2-4 units to provide basal insulin needs rather than his usual basal insulin. On top of this scheduled dose, we will also provide correctional insulin. * Patient is currently NPO. If he remains NPO for a prolonged period of time, one may need to add dextrose to his IVFs to allow for continued insulin administration. PLAN FOR INPATIENT GLYCEMIC CONTROL: * Basal insulin: * REGULAR insulin Q 6 hrs * 2 units if BSG < 110 * 3 units if BSG 110-150 * 4 units if BSG > 150 * Bolus insulin * REGULAR insulin * Goal range: 110-150 * Correction factor: 30mg/dL/unit * Carb ratio: none (given pt's NV and inconsistent PO intake and grazing habits, counting carbs is difficult) * Consider provision of dextrose in IVFs if patient's PO intake remains poor and BSG falling below goal PLAN FOR DISCHARGE: * to be determined
--- NOTE | 2019-07-16 14:03 | Discharge Summary ---
Date of Service July 16, 2019 Admission HPI Per Admitting Provider Jorge Alberto De Los Santos is a 48-year-old male with past medical history of brittle diabetes mellitus, end-stage renal disease on hemodialysis, and gastroparesis who presents today with intractable nausea vomiting. He notes onset of N/V around 2:30pm today with about 10 episodes of Vomiting not relieved with outpatient medications. He notes having a colonoscopy performed earlier today as well as having dialysis today as well. He notes feeling at baseline this morning and denies any recent illness. He denies stomach pains, chest pains, abdominal pain, fever, chills. He has had numerous admissions for same. In the ED, his BP was found to be elevated 190-230s/90-100. He was treated with Labetalol 10mg IV x2, Reglan 10mg IV x1, Zofran 4mg IV x2, and NSS 1L Bolus. Family member notes usually symptoms typically last for 48 hours after start of treatment. Patient typically gets hemodialysis at [facility], follows with Dr. Higgins. He also follows at the GI motility clinic in [place]. Principal Diagnosis Hypertensive urgency Discharge Exam Constitutional well developed and + thin; no acute distress Eyes PERRL, conjunctivae normal, anicteric sclerae ENMT external ear and nose normal, oropharynx normal Neck trachea midline, no thyromegaly Respiratory normal respiratory effort, lungs clear to auscultation Cardiovascular RRR, no murmur, no edema Gastrointestinal (Abdomen) normal bowel sounds, soft, nontender, no hepatosplenomegaly Musculoskeletal no cyanosis or clubbing, extremities motor strength 5/5 Skin no rashes, warm and dry Neurologic patellar DTR's 2+ bilat, sensation intact and PERRL, EOMI, accommodation nl, no face palsy, no dysarthria Psychiatric Orientation: alert and oriented x 3 Lymphatic no cervical or axillary lymphadenopathy Discharge Data Allergies Allergy/AdvReac Type Severity Reaction Status Date / Time shellfish derived Allergy Severe anaphylaxis Verified 07/13/19 14:46 codeine Allergy Intermediate Hives Verified 07/13/19 14:46 promethazine Allergy Intermediate itchy/hives Verified 07/13/19 14:46 Consultations 07/13/19 20:32 ED Decision to Admit Stat 07/14/19 00:05 Consult Case Management - Discharge Planning Routine Consult Gastroenterology Routine Consult Nephrology Routine Hospital Course (1) Hypertensive urgency: BP much better after he was able to tolerate PO medications took Amlodipine, Coreg and Losartan this morning systolic BP 130-140, feeling much better feels ready for discharge (2) Vomiting: due to well established gastroparesis due to diabetes continue Zofran, Reglan PRN had a good response to Ativan 1mg IV yesterday when Zofran and Reglan not working no vomiting at all this morning, tolerated breakfast gave him the option of staying for lunch but he wanted to go home will provide script for Ativan 1mg SL to try as needed for nausea that does not respond to Zofran and Reglan (3) Acute hypokalemia: resolved, K managed via HD (4) Severe protein-calorie malnutrition: due to repeated bouts of vomiting with gastroparesis encourage protein intake once he can eat advanced to renal diet ongoing issue (5) ESRD (end stage renal disease): no indication for emergent HD on admission had HD on 07/15 with nausea/vomiting, hypertension Dr. Guadalupe following report for HD on Tuesday 07/18 (6) Depression: mood stable (7) Diabetes mellitus type I: continue insulin regimen, sugars acceptable Total Time Total Time Spent Total Time Spent (In Minutes): 31 minutes Total Time Includes: Examination of the Patient, Discharge Planning and Medication Reconciliation Discharge Plan Discharge Items Patient Disposition: Home - Self-Care Reason For Visit: INTRACTABLE N/V, HTN URGENCY Discharge Diagnosis: Intractable vomiting due to gastroparesis ESRD on hemodialysis Hypertensive urgency Condition on Discharge: Good Goals: improve blood pressure control improve control over nausea follow up for hemodialysis on Thursday Activity: Resume your previous activity Non-emergency contact: Primary Care Provider and Wrecker Driver Call non-emergency contact if: you have any medication questions, your symptoms worsen and you have a fever Follow-up/Referrals: Abbi Ames MD [Primary Care Provider] - Diet: Carb Count or DM1 and Dialysis Renal Addtl Attending Provider Instructions: Medications: - ATIVAN: 1mg sublingual, additional medication that you can use for nausea if Reglan not helping, received it here inpatient Hypertensive urgency: due to not being able to take PO blood pressure medications blood pressure better here today after taking medications ESRD: follow up for HD on Thursday as normally scheduled Vomiting due to gastroparesis continue to take Reglan with meals and at bedtime use Zofran ODT as needed will try Ativan sublingual to use as needed if the Zofran and Reglan do not work do not take more Ativan than prescribed, this dose intended for nausea, not anxiety Pending Studies at Discharge: No Stand-Alone Forms: My [facility] Who Can Fix My Car, Smoking Cessation Medications and DC Order Prescriptions: New lorazepam [Ativan] 1 mg tablet 1 mg SL Q12H PRN (Reason: nausea and vomiting) Qty: 14 RF: 0 Continued bupropion HCl 100 mg tablet sustained-release 12 hr 100 mg PO QAM RF: 0 (DME) Contour Next Test Strips strip See Dose Instructions .ROUTE .MEDSUPPLY Qty: 240 RF: 5 famotidine 20 mg tablet 20 mg PO 3XWK Qty: 90 RF: 1 (DME) pen needle, diabetic [BD Ultra-Fine Annalise Pen Needle] 32 gauge x 5/32" needle See Rx Instructions .ROUTE .MEDSUPPLY Qty: 800 RF: 3 carvedilol 25 mg tablet 25 mg PO BID RF: 0 ondansetron 4 mg tablet,disintegrating 4 mg PO Q6H PRN (Reason: Nausea And Vomiting) RF: 0 Basaglar KwikPen U-100 Insulin 100 unit/mL (3 mL) insulin pen 18 units SQ QAM RF: 0 losartan 50 mg tablet 75 mg PO QAM RF: 0 atorvastatin 10 mg tablet 10 mg PO QAM RF: 0 metoclopramide HCl 5 mg tablet 5 mg PO ACHS RF: 0 amlodipine 10 mg tablet 10 mg PO QAM RF: 0 acetaminophen [Acetaminophen Extra Strength] 500 mg Tablet 500 mg PO Q6H MDD 3000 MG/DAY PRN (Reason: Fever Or Pain) RF: 0 sennosides-docusate sodium [Senna with Docusate Sodium] 8.6-50 mg Tablet 1 tab-cap PO BID RF: 0 polyethylene glycol 3350 17 gram/dose Powder 17 g PO DAILY RF: 0 [place] Caps 1 mg capsule 1 cap PO QAM RF: 0 sertraline 100 mg tablet 100 mg PO QAM RF: 0 lorazepam 0.5 mg tablet 0.5 mg PO Q6H PRN (Reason: Anxiety) RF: 0 calcium acetate 667 mg capsule 667 mg PO DIRECTED MDD 7 CAPSULES/DAILY RF: 0 Discharge Orders: Discharge Order (Routine); Ordered 07/16/19 Ordered By: Maninder Dockery/Other Patient Handouts: Hyperglycemia, Hypoglycemia Admission Data Admit Date/Time: 07/13/19 22:00 Attending Provider: Maninder Greenberg Admit Provider: Elier Garg Primary Care Provider: Abbi Ames V. Other Providers: Colton Guajardo ; Madi Stephen ; Arcenio Ortiz Other Interventions: Discharge Summary Assessment (RN) Last Done: 07/16/19 11:08 DC Date/Time DO NOT enter until pt leaves facility: 07/16/19 11:53 Coding Level of Care Code D/C Day Management >30 mins Diagnoses Hypertensive urgency I16.0 Vomiting R11.10 Nausea presence: unspecified Vomiting Intractability: unspecified Vomiting type: unspecified Acute hypokalemia E87.6 Severe protein-calorie malnutrition E43 ESRD (end stage renal disease) N18.6 Depression F32.9 Diabetes mellitus type I E10.9
== END 2019-07-16 11:53 | disposition home or self-care (01) | DRG 73 ==
LOC: ED 18:27 → 2E 22:00 → SUATTDRO 22:00 → 2E 22:54

== ENCOUNTER 2019-09-26 00:43 | Inpatient (IN) ==
[2019-09-26] MEDS ORDERED: PROCHLORPERAZINE 2 ML IV ONE (00:55)
[2019-09-26] MEDS ORDERED: SODIUM CHLORIDE 0.9% 1000ML 1,000 ML IV ONE (00:55)
[2019-09-26] MEDS ORDERED: DiphenhydrAMINE HCL 50 MG/ML VIAL IV STA (00:55)
--- NOTE | 2019-09-26 00:58 | Emergency Department Note ---
Impression & Plan Hypertensive emergency, Intractable nausea and vomiting ED Provider Note Name: JERARDO PEREZ Age: 49 Sex: M Arrives Via: Walk-In Informant: Patient, ED Provider: Cuong Burrows MD Chief Complaint: Vomiting Impression: Hypertensive Emergency Intractable Nausea and Vomiting Medical Decision Makin yr old david hickman history of DMI, Gastroparesis, CAD, ESRD on dialysis, HTN, Depression arrives for acute vomiting. Hypertensive and very uncomfortable on arrival. Given compazine/benadryl and vomiting improving but BP remained high. Further reglan given for more symptom control. Multiple rounds labetalol and then hydralazine given with only mild improvement in BP. He is without evidence ACS and no neuro deficits nor headaache at this time to indicate neuroimaging. This has clearly happened previously. Patient is not in DKA currently and does not appear septic. Due to persistent HTN and nausea/vomiting felt that hospitalization indicated. While likely vomiting gastroparesis, it may also be symptom of his hypertensive emergency as well. Abdominal exam benign and without abodminal pain and with this clearly happening previously seems imaging not indicated of abdomen at this time. Prior Medical Record and Triage/Nursing Notes reviewed by Me Differentials:Gastroenteritis, food borne illness, infections, appendicitis, diverticulitis, inflammatory bowel disease, obstruction, GI bleed, biliary pathology, volvulus, as well as other pathologies. Vital Signs: reviewed and remarkable for no significant abnormalities Interventions: saline lock, nss bolus, compazine 10mg IV, benadryl 50mg IV, reglan 5mg IV, labetalol 10mg IV x2, labetalol 20mg IV, hyrdalazine 10mg IV Labs:Reviewed and remarkable for no significant abnormalities other than chronic renal failure Consults:Dr Billy MAYEN Hospitalist Plan: Disposition:Hospitalization. Condition: Fair Blood pressure:Elevated - Referred to Hospitalist Prescriptions:none History of Present Illness:49 / M arrives for evaluation of vomiting. History of severe vomiting secondary to diabetic gastroparesis with occasional ED visits for same. Onset tonight 9pm with severe nausea, vomiting. Associated feeling weak. No other symptoms. Zofran no effect at home. Nothing better nor worse. Similar to previous. No abdominal pain nor bowel movement changes. Denies headache, neck pain, neuro deficits, chest pain, fevers, chills, back pain, leg swelling nor other symptoms. Symptoms similar to previous gastroparesis and hypertensive issues. No trauma, falls, nor syncope. ROS: See above HPI for pertinent positives & negatives. A total of 10 systems reviewed and were otherwise negative. Past Medical History:See Below Past Surgical History:See Below Family History:See Below Social History:See Below Home Medications:See Below Allergies:See Below Vitals:Blood Pressure: 230/111 , Pulse 98, RR 20, T 36.4C, O2 93% on RA Physical Exam: GENERAL: Patient is very uncomfortable appearing and in moderate distress. Dehydrated appearing EYES: No scleral icterus, unremarkable pupils. ENT: Mucous membranes dry, no nasal congestion. NECK: No masses appreciated, nomeningismus, trachea is midline. RESPIRATORY: No dyspnea. Clear to auscultation and equal bilaterally. No wheeze, no rhonchi. CARDIOVASCULAR: tachy.No murmurs, rubs, gallops appreciated. GASTROINTESTINAL: Abdomen soft, non-tender, no peritonitis.Bowel sounds positive.No masses appreciated. BACK: No midline tenderness, no CVA tenderness EXTREMITIES: Normal motion all extremities, no cyanosis, no edema. NEUROLOGIC: Alert and oriented, no acute motor or sensory deficits, no focal weakness, cranial nerves grossly intact. SKIN: No rash, no jaundice, no diaphoresis. PSYCH: Appropriate GCS: 15 ED Course: Times/Reassessments: multiple, improved vomiting, still some nausea and persist ent hypertension Critical Care: I have personally spent 40 minutes of critical care time in the direct management of this patient. Hypertensive emergency with many repeat IV BP meds given. This was a life/limb threatening event. This 40 minutes is in excess of all separately billable procedures. Cuong Burrows MD Past Med/Surg History Medical History (Updated 09/26/19 @ 07:34 by Cuong Burrows MD) Acute hypokalemia Acute hyponatremia (Inactive) Anxiety AV fistula left arm CAD (coronary artery disease) mild, non-obstructive CAD per 10/2018 cardiac cath> FO[facility]OWS [facility] Dehydration (Inactive) Depression Diabetes mellitus type I (Chronic) Diabetic neuropathy Diabetic retinopathy Dialysis patient (Inactive) ESRD (end stage renal disease) Hemodialysis via permacath RIGHT CHEST M,W,F (Follows with Dr. Taylor Higgins; [facility]) Gastroparesis (Chronic) GERD (gastroesophageal reflux disease) Heart failure with reduced ejection fraction (Chronic) Hypertension Hypertensive urgency (Inactive) Kidney stones Surgical History H/O shoulder surgery RIGHT History of appendectomy History of cardiac cath 10/2018= no stents, no obstructive disease (at [facility]) History of esophagogastroduodenoscopy (EGD) History of hip surgery LEFT HIP ARTHROSCOPY History of lithotripsy History of open reduction and internal fixation (ORIF) procedure right hip Nausea and vomiting after administration of anesthetic agent Permanent central venous catheter in place Permacath S/P arteriovenous (AV) fistula creation left arm Social History Preferred Language: Sami Communication Ability: Effective Visual Impairment: No Limitations Hearing Ability: Normal Associate Product Manager Required: No Beliefs That Will Affect Care: None marital status: Single Current Living Situation: Parent Current Living Situation Comment: CURRENT : [facility] current occupational status: unemployed Feels Safe at Home: Yes Smoking Status: Never smoker Tobacco Type: smokeless tobacco ; Second Hand Expo sure: No (QUIT 02/2019) ; Hx Alcohol Use: No Hx Substance Use: No Childhood Exposure to Second-Hand Smoke: Yes Dental Care, Regularly: No Physical Activity Frequency: 1-2 Times per Week Seatbelt Use: always Sunscreen Use: No Allergies Allergies Allergy/AdvReac Type Severity Reaction Status Date / Time shellfish derived Allergy Severe anaphylaxis Verified 09/26/19 01:41 codeine Allergy Intermediate Hives Verified 09/26/19 01:41 promethazine Allergy Intermediate itchy/hives Verified 09/26/19 01:41 Home Meds Home Medications Medication Instructions Recorded Confirmed [place] Caps 1 cap PO QAM 12/19/18 09/26/19 sertraline 100 mg PO QAM 03/21/19 09/26/19 bupropion HCl 100 mg tablet,12 hr 100 mg PO QAM ea 04/14/19 09/26/19 sustained-release ondansetron 4 mg disintegrating 4 mg PO Q6H PRN 04/27/19 09/26/19 tablet Basaglar KwikPen U-100 Insulin 30 units SQ QAM 05/16/19 09/26/19 calcium acetate(phosphat bind) 667 mg PO DIRECTED MDD 7 12/24/19 04/20/20 CAPSULES/DAILY carvedilol 25 mg tablet 25 mg PO BID tab 06/16/19 09/26/19 atorvastatin 10 mg PO QAM 06/21/19 09/26/19 losartan 75 mg PO QAM 06/21/19 09/26/19 metoclopramide HCl 5 mg PO ACHS 06/21/19 09/26/19 acetaminophen [Acetaminophen Extra 500 mg PO Q6H PRN MDD 3000 MG/DAY 07/13/19 09/26/19 Strength] sennosides-docusate sodium [Senna 1 tab-cap PO BID 07/13/19 09/26/19 with Docusate Sodium] lorazepam 0.5 mg tablet 0.5 mg PO DAILY PRN tab 07/25/19 09/26/19 amlodipine 5 mg PO QAM 09/26/19 09/26/19 insulin aspart U-100 [Novolog 0 unit SUBCUT UD PRN 09/26/19 09/26/19 Flexpen U-100 Insulin] Previous Rx's Medication Instructions Recorded Contour Next Test Strips #240 ea NS 05/04/19 famotidine 20 mg tablet 20 mg PO 3XWK #90 tab 06/10/19 BD Ultra-Fine Annalise Pen Needle 32 #800 ea NS 07/11/19 gauge x " Results & Data (ED) Vital Signs Vital Signs - 24 hr 09/26/19 00:45 09/26/19 01:27 09/26/19 01:43 Temperature 36.4 C L Temperature Source Oral Pulse Rate 95 H Pulse Rate [Bilateral Apical] 98 H 91 H Respiratory Rate 19 20 18 Blood Pressure 189/78 H Blood Pressure [Right Arm] 230/111 H 226/105 H Blood Pressure Mean 115 Blood Pressure Mean [Right Arm] 150 145 Blood Pressure Position Sitting Pulse Oximetry 100 93 97 Oxygen Delivery Method Room Air Room Air Sepsis Recent Fever Within 48 Hours No Sepsis Action Taken by Nursing No Action Required 09/26/19 01:54 09/26/19 02:33 09/26/19 02:56 Temperature Temperature Source Pulse Rate Pulse Rate [Bilateral Apical] 91 H 88 84 Respiratory Rate 18 20 18 Blood Pressure Blood Pressure [Right Arm] 224/102 H 237/105 H 219/104 H Blood Pressure Mean Blood Pressure Mean [Right Arm] 142 149 142 Blood Pressure Position Pulse Oximetry 95 98 98 Oxygen Delivery Method Room Air Room Air Sepsis Recent Fever Within 48 Hours Sepsis Action Taken by Nursing 09/26/19 03:05 09/26/19 03:29 Temperature Temperature Source Pulse Rate Pulse Rate [Bilateral Apical] 85 86 Respiratory Rate 18 20 Blood Pressure Blood Pressure [Right Arm] 215/107 H 216/106 H Blood Pressure Mean Blood Pressure Mean [Right Arm] 143 142 Blood Pressure Position Pulse Oximetry 99 99 Oxygen Delivery Method Room Air Room Air Sepsis Recent Fever Within 48 Hours Sepsis Action Taken by Nursing Laboratory Data Result diagrams: 09/26/19 01:04 09/26/19 01:04 Lab Results 09/26/19 09/26/19 09/26/19 Range/Units 01:04 01:04 01:04 WBC 11.28 H (4.8-10.8) K/uL RBC 4.23 L (4.7-6.1) M/uL Hgb 14.4 (14.0-18.0) g/dL Hct 41.6 L (42-52) % MCV 98.3 (80-100) fL MCH 34.0 (25-34) pg MCHC 34.6 (32-36) g/dL RDW Std Deviation 43.3 (36.4-46.3) fL RDW Coeff of Kami 12.0 (11.5-14.5) % Plt Count 296 (130-400) K/uL MPV 9.1 (7.4-10.4) fL Immature Gran % (Auto) 0.4 % Neut % (Auto) 73.7 % Lymph % (Auto) 16.3 % [place] % (Auto) 7.6 % Eos % (Auto) 1.4 % Baso % (Auto) 0.6 % Immature Gran # (Auto) 0.05 H (0.00-0.02) K/uL Neut # (Auto) 8.30 H (1.4-6.5) K/uL Lymph # (Auto) 1.84 (1.2-3.4) K/uL [place] # (Auto) 0.86 H (0.11-0.59) K/uL Eos # (Auto) 0.16 (0-0.5) K/uL Baso # (Auto) 0.07 (0-0.2) K/uL Sodium 132 L (136-145) mmol/L Potassium 3.8 (3.5-5.1) mmol/L Chloride 98 (98-107) mmol/L Carbon Dioxide 23 (21-32) mmol/L Anion Gap 11.0 (3-11) BUN 79 H (7-18) mg/dl Creatinine 9.36 H* (0.6-1.4) mg/dl Est Cr Clr Drug Dosing Not Reportable Est GFR ( Amer) 6.8 Est GFR (Non-Af Amer) 5.9 BUN/Creatinine Ratio 8.4 L (10-20) Glucose 205 H (70-99) mg/dl POC Glucose (70-99) mg/dl Calcium 9.6 (8.5-10.1) mg/dl Phosphorus 3.7 (2.5-4.9) mg/dl Magnesium 2.6 H (1.8-2.4) mg/dl Total Bilirubin 0.4 (0.2-1) mg/dl Direct Bilirubin 0.1 (0-0.2) mg/dl AST 18 (15-37) U/L ALT 37 (12-78) U/L Alkaline Phosphatase 103 (45-117) U/L Troponin I < 0.015 (0-0.045) ng/ml Total Protein 8.1 (6.4-8.2) gm/dl Albumin 4.2 (3.4-5.0) gm/dl Lipase 102 (73-393) U/L 09/26/19 Range/Units 03:47 WBC (4.8-10.8) K/uL RBC (4.7-6.1) M/uL Hgb (14.0-18.0) g/dL Hct (42-52) % MCV (80-100) fL MCH (25-34) pg MCHC (32-36) g/dL RDW Std Deviation (36.4-46.3) fL RDW Coeff of Kami (11.5-14.5) % Plt Count (130-400) K/uL MPV (7.4-10.4) fL Immature Gran % (Auto) % Neut % (Auto) % Lymph % (Auto) % [place] % (Auto) % Eos % (Auto) % Baso % (Auto) % Immature Gran # (Auto) (0.00-0.02) K/uL Neut # (Auto) (1.4-6.5) K/uL Lymph # (Auto) (1.2-3.4) K/uL [place] # (Auto) (0.11-0.59) K/uL Eos # (Auto) (0-0.5) K/uL Baso # (Auto) (0-0.2) K/uL Sodium (136-145) mmol/L Potassium (3.5-5.1) mmol/L Chloride (98-107) mmol/L Carbon Dioxide (21-32) mmol/L Anion Gap (3-11) BUN (7-18) mg/dl Creatinine (0.6-1.4) mg/dl Est Cr Clr Drug Dosing Est GFR ( Amer) Est GFR (Non-Af Amer) BUN/Creatinine Ratio (10-20) Glucose (70-99) mg/dl POC Glucose 319 H* (70-99) mg/dl Calcium (8.5-10.1) mg/dl Phosphorus (2.5-4.9) mg/dl Magnesium (1.8-2.4) mg/dl Total Bilirubin (0.2-1) mg/dl Direct Bilirubin (0-0.2) mg/dl AST (15-37) U/L ALT (12-78) U/L Alkaline Phosphatase (45-117) U/L Troponin I (0-0.045) ng/ml Total Protein (6.4-8.2) gm/dl Albumin (3.4-5.0) gm/dl Lipase (73-393) U/L Administered Medications Sodium Chloride (Nss 1000ml) 1,000 mls @ 50 mls/hr IV .Q20H [facility] Stop: 09/27/19 01:08 Last Admin: 09/26/19 05:53 Dose: 50 mls/hr Documented by: [id number] Insulin Human Regular (Novolin R) 0 units SC Q6 JACKI Stop: 10/26/19 05:59 Last Admin: 09/26/19 06:00 Dose: 3 units Documented by: [id number] Cosigned by: [id number] Insulin Human Regular (Novolin R) 0 units SC Q6 JACKI; Protocol Stop: 10/26/19 05:59 Last Admin: 09/26/19 06:00 Dose: 4 units Documented by: [id number] Cosigned by: [id number] Ondansetron HCl (Zofran) 4 mg IV Q6H JACKI Stop: 10/26/19 05:59 Last Admin: 09/26/19 05:54 Dose: 4 mg Documented by: [id number] Discontinued Medications Diphenhydramine HCl (Benadryl) 50 mg IV NOW STA Stop: 09/26/19 00:56 Last Admin: 09/26/19 01:14 Dose: 50 mg Documented by: [id number] Hydralazine HCl (Hydralazine Hcl) 10 mg IV NOW STA Stop: 09/26/19 03:38 Last Admin: 09/26/19 03:41 Dose: 10 mg Documented by: [id number] Prochlorperazine (Compazine) 2 mls @ 1 mls/min IV ONE ONE Stop: 09/26/19 00:56 Last Admin: 09/26/19 01:14 Dose: 1 mls/min Documented by: [id number] Sodium Chloride (Nss 1000ml) 1,000 mls @ 999 mls/hr IV .Q1H1M ONE Stop: 09/26/19 01:55 Last Infusion: 09/26/19 02:08 Dose: 0 mls/hr Documented by: [id number] Admin: 09/26/19 01:14 Dose: 999 mls/hr Documented by: [id number] Insulin Human Regular (Novolin R) 6 units IV NOW STA Stop: 09/26/19 03:45 Last Admin: 09/26/19 03:52 Dose: 6 units Documented by: [id number] Cosigned by: [id number] Insulin Human Regular (Novolin R U-100 Per Unit) Confirm Administered Dose 6 units .ROUTE .STK-MED ONE Stop: 09/26/19 03:52 Last Admin: 09/26/19 03:57 Dose: Not Given Documented by: [id number] Labetalol HCl (Normodyne) 10 mg IV NOW STA Stop: 09/26/19 01:43 Last Admin: 09/26/19 01:47 Dose: 10 mg Documented by: [id number] Cosigned by: [id number] Labetalol HCl (Normodyne) 10 mg IV NOW STA Stop: 09/26/19 02:19 Last Admin: 09/26/19 02:27 Dose: 10 mg Documented by: [id number] Cosigned by: [id number] Labetalol HCl (Normodyne) 20 mg IV NOW STA Stop: 09/26/19 02:46 Last Admin: 09/26/19 03:00 Dose: 20 mg Documented by: [id number] Cosigned by: [id number] Metoclopramide HCl (Reglan) 5 mg IV NOW STA Stop: 09/26/19 03:01 Last Admin: 09/26/19 03:02 Dose: 5 mg Documented by: [id number] Discharge Plan Visit Data *Final* Discharge Date/Time: 09/26/19 04:44 Chief Complaint: Vomiting Stated Complaint: VOMITING ED Provider: Cuong Burrows Discharge Problem: Hypertensive emergency, Intractable nausea and vomiting Patient Disposition: Admitted As Inpatient Discharge Instructions Interventions: ED Discharge Assessment Last Done: 09/26/19 04:44
[2019-09-26 01:12] LABS: Basophils # (auto) 0.07 K/uL (0-0.2); Basophils % (auto) 0.6 %; Eosinophils # (auto) 0.16 K/uL (0-0.5); Eosinophils % (auto) 1.4 %; Hematocrit (blood only) 41.6 % (42-52); Hemoglobin 14.4 g/dL (14.0-18.0); Immature Granulocytes # (auto) 0.05 K/uL (0.00-0.02); Immature Granulocytes % (auto) 0.4 %; Lymphocytes # (auto) 1.84 K/uL (1.2-3.4); Lymphocytes % (auto) 16.3 %; Mean Corpuscular Hgb Conc 34.6 g/dL (32-36); Mean Corpuscular Volume 98.3 fL (80-100); Mean Platelet Volume 9.1 fL (7.4-10.4); Monocytes # (auto) 0.86 K/uL (0.11-0.59); Monocytes % (auto) 7.6 %; Neutrophils % (auto) 73.7 %; Platelet Count 296 K/uL (130-400); RDW Standard Deviation 43.3 fL (36.4-46.3); Red Blood Count 4.23 M/uL (4.7-6.1); White Blood Count 11.28 K/uL (4.8-10.8)
[2019-09-26] MEDS ORDERED: LABETALOL HCL IV 5 MG/ML 20ML IV STA ×3 (01:42→02:45)
[2019-09-26 01:51] LABS: Alanine Aminotransferase 37 U/L (12-78); Albumin Level 4.2 gm/dl (3.4-5.0); Alkaline Phosphatase 103 U/L (45-117); Aspartate Aminotransferase 18 U/L (15-37); BUN Creatinine Ratio 8.4 (10-20); Bilirubin Direct 0.1 mg/dl (0-0.2); Bilirubin,Total 0.4 mg/dl (0.2-1); Blood Urea Nitrogen 79 mg/dl (7-18); Calcium 9.6 mg/dl (8.5-10.1); Carbon Dioxide 23 mmol/L (21-32); Chloride 98 mmol/L (98-107); Est GFR (African American) 6.8; Est GFR (Non-African American) 5.9; Glucose 205 mg/dl (70-99); Lipase 102 U/L (73-393); Magnesium 2.6 mg/dl (1.8-2.4); Potassium 3.8 mmol/L (3.5-5.1); Sodium 132 mmol/L (136-145); Total Protein 8.1 gm/dl (6.4-8.2); Troponin I < 0.015 ng/ml (0-0.045)
[2019-09-26] MEDS ORDERED: METOCLOPRAMIDE HCL INJ 5 MG/ML 2 ML VIAL IV STA (03:00)
[2019-09-26] MEDS ORDERED: HydrALAZINE HCL 20 MG/ML VIAL IV STA (03:37)
[2019-09-26] MEDS ORDERED: INSULIN HUMAN REGULAR IV STA (03:44)
[2019-09-26] MEDS ORDERED: NovoLIN-R INSULIN PER UNIT CHARGE ONE (03:51)
[2019-09-26] MEDS ORDERED: GLUCOSE 10 TABS/TUBE PO PRN (05:09)
[2019-09-26] MEDS ORDERED: SODIUM CHLORIDE 0.9% 1000ML 1,000 ML IV SCH (05:09)
[2019-09-26] MEDS ORDERED: GLUCOSE 40% GEL 15 GM TUBE PO PRN (05:09)
[2019-09-26] MEDS ORDERED: bisacodyL 10 MG SUPP PR PRN (05:09)
[2019-09-26] MEDS ORDERED: LABETALOL HCL IV 5 MG/ML 20ML IV PRN (05:09)
[2019-09-26] MEDS ORDERED: GLUCAGON FOR INJ 1 MG VIAL SQ PRN (05:09)
[2019-09-26] MEDS ORDERED: METOCLOPRAMIDE HCL INJ 5 MG/ML 2 ML VIAL IV PRN (05:09)
[2019-09-26] MEDS ORDERED: HydrALAZINE HCL 20 MG/ML VIAL IV PRN (05:09)
[2019-09-26] MEDS ORDERED: CARBOHYDRATES FOR HYPOGLYCEMIA PO PRN (05:09)
[2019-09-26] MEDS ORDERED: LORazepam 0.5 MG/1 ML VIAL IV PRN (05:09)
[2019-09-26] MEDS ORDERED: ACETAMINOPHEN 500 MG TAB PO PRN (05:09)
[2019-09-26] MEDS ORDERED: DEXTROSE 50% 50 ML SYRINGE IV PRN (05:09)
--- NOTE | 2019-09-26 05:09 | History & Physical Report ---
Date of Service September 26, 2019 Assessment & Plan (1) Intractable nausea and vomiting: Most likely secondary to diabetic gastroparesis. +BS, abdomen is soft and non-tender -Admit to PCU -NPO, aspiration precautions -Zofran 4mg IV q 6 hours PRN -Reglan 5mg IV q 6 hours PRN -May consider Erythromycin as promotility agent if symptoms persist Present on Admission?: Yes (2) Hypertensive urgency: Patient with hypertensive urgency, no evidence of end-organ damage. Last took BP medications this AM and patient reports compliance with his home agents. -Continue Labetalol 10mg IV q 4 hours PRN SBP >190/110 -Hydralazine 10mg IV q 4 hours PRN SBP > 190/110 -Resume home medications as tolerated, Amlodipine 5mg po qAM, Carvedilol 25mg po BID and Losartan 75 mg po qAM -PCU monitoring with IV medications Present on Admission?: Yes (3) ESRD on dialysis: Patient with ESRD on HD q M/W/. Last treatment on 09/22 - completed without difficulty. Presently electrolytes are appropriate - no need for urgent HD. Patient reports still making a fair amount of urine. -Consult Dr. Guadalupe, appreciate assistance -Continue Phoslo, Chris Caps -Monitor electrolytes -HD dosing where necessary Present on Admission?: Yes (4) Diabetes mellitus type I: Patient with DM nephropathy, neuropathy, gastroparesis, retinopathy. BS elevated at 205. Last FqaQ1L=9.6 on 06/04/19 -Continue home insulin, Basaglar 30u qAM. Patient should receive 50% of dose this AM as he is NPO -ISS -Closely monitor - patient is brittle diabetic. Consider Pharmacy consultation Present on Admission?: Yes (5) CAD (coronary artery disease): Chronic. Stable. No acute issues -Continue Atorvastatin, Carvedilol, Losartan Present on Admission?: Yes (6) Depression: Chronic. -Continue Sertraline, Bupropion F/E/N - NSS at 50mL/hr x 1 liter. Monitor electrolytes. NPO for now, bowel regimen with Miralax, Dulcolax PRN Ppx - low risk for DVT, IVF and ambulation encouraged Code -Full per discussion with patient Dispo - Admit to PCU Present on Admission?: Yes Admission and Anticipated Discharge Date Admission Date: 09/26/19 Anticipated date of discharge: 09/28/19 History of Present Illness Chief Complaint: nausea/vomiting Primary Care Provider: Abbi Stauffer MD Jorge Alberto De Los Santos is a 49yo C male with history of ESRD on HD q M/W/F, DM/CAD/GERD/Gastroparesis. He presents to the ER this evening with complaint of acute onset nausea that started around 21:30 when he was watching TV. +Nausea with multiple episodes of non-bloody emesis. +loose stools. He denies fever/chills/CP/SOB/abdominal pain. Patient has gastroparesis requiring multiple hospital admissions in the past. He feels that his current sympoms are consistent with prior episodes of gastroparesis. In the ER he was found to be hypertensive, 216/106. He was administered multiple doses of IV Labetalol as well as IV Hydralazine with minimal improvement. Patient denies CHANEL, visual change, CP, palpitations, SOB or back pain. No additional complaints at this time. ER Course: Benadryl, Hydralazine, Labetalol, Reglan, Prochlorperazine Allergies Allergy/AdvReac Type Severity Reaction Status Date / Time shellfish derived Allergy Severe anaphylaxis Verified 09/26/19 01:41 codeine Allergy Intermediate Hives Verified 09/26/19 01:41 promethazine Allergy Intermediate itchy/hives Verified 09/26/19 01:41 Home Medications Home Medications Medication Instructions Recorded Confirmed Type Hubbard Caps 1 cap PO QAM 12/19/18 09/26/19 History sertraline 100 mg PO QAM 03/21/19 09/26/19 History bupropion HCl 100 mg tablet,12 hr 100 mg PO QAM ea 04/14/19 09/26/19 History sustained-release ondansetron 4 mg disintegrating 4 mg PO Q6H PRN 04/27/19 09/26/19 History tablet Contour Next Test Strips #240 ea NS 05/04/19 08/16/19 Rx Basaglar KwikPen U-100 Insulin 30 units SQ QAM 05/16/19 09/26/19 History calcium acetate(phosphat bind) 667 mg PO DIRECTED MDD 7 05/31/19 09/26/19 History CAPSULES/DAILY famotidine 20 mg tablet 20 mg PO 3XWK #90 tab 06/10/19 09/26/19 Rx carvedilol 25 mg tablet 25 mg PO BID tab 06/16/19 09/26/19 History atorvastatin 10 mg PO QAM 06/21/19 09/26/19 History losartan 75 mg PO QAM 06/21/19 09/26/19 History metoclopramide HCl 5 mg PO ACHS 06/21/19 09/26/19 History BD Ultra-Fine Annalise Pen Needle 32 #800 ea NS 07/11/19 08/16/19 Rx gauge x " acetaminophen [Acetaminophen Extra 500 mg PO Q6H PRN MDD 3000 MG/DAY 07/13/19 09/26/19 History Strength] sennosides-docusate sodium [Senna 1 tab-cap PO BID 07/13/19 09/26/19 History with Docusate Sodium] lorazepam 0.5 mg tablet 0.5 mg PO DAILY PRN tab 07/25/19 09/26/19 History amlodipine 5 mg PO QAM 09/26/19 09/26/19 History insulin aspart U-100 [Novolog 0 unit SUBCUT UD PRN 09/26/19 09/26/19 History Flexpen U-100 Insulin] Past Med/Surg History Medical History (Updated 09/26/19 @ 05:04 by Marielos Cervantes DO) Acute hypokalemia Acute hyponatremia (Inactive) Anxiety AV fistula left arm CAD (coronary artery disease) mild, non-obstructive CAD per 10/2018 cardiac cath> FOLLOWS [facility] Dehydration (Inactive) Depression Diabetes mellitus type I (Chronic) Diabetic neuropathy Diabetic retinopathy Dialysis patient (Inactive) ESRD (end stage renal disease) Hemodialysis via permacath RIGHT CHEST M,W,F (Follows with Dr. Taylor Higgins; [facility]/[place]) Gastroparesis (Chronic) GERD (gastroesophageal reflux disease) Heart failure with reduced ejection fraction (Chronic) Hypertension Hypertensive urgency (Inactive) Kidney stones Surgical History H/O shoulder surgery RIGHT History of appendectomy History of cardiac cath 10/2018= no stents, no obstructive disease (at [facility]) History of esophagogastroduodenoscopy (EGD) History of hip surgery LEFT HIP ARTHROSCOPY History of lithotripsy History of open reduction and internal fixation (ORIF) procedure right hip Nausea and vomiting after administration of anesthetic agent Permanent central venous catheter in place Permacath S/P arteriovenous (AV) fistula creation left arm Social History Preferred Language: South Korean Communication Ability: Effective Visual Impairment: No Limitations Hearing Ability: Normal Eligibility Clerk Required: No Beliefs That Will Affect Care: None marital status: Single Current Living Situation: Parent Current Living Situation Comment: CURRENT : [facility] current occupational status: unemployed Feels Safe at Home: Yes Smoking Status: Never smoker Tobacco Type: smokeless tobacco ; Second Hand Exposure: No (QUIT 02/2019) ; Hx Alcohol Use: No Hx Substance Use: No Childhood Exposure to Second-Hand Smoke: Yes Dental Care, Regularly: No Physical Activity Frequency: 1-2 Times per Week Seatbelt Use: always Sunscreen Use: No Review of Systems Review of Systems: All systems reviewed & are unremarkable except as noted in HPI & below Physical Exam Physical Exam: General: patient resting in bed, ill in appearance but NAD, AA&O x 4 Skin: warm, dry, intact, no rashes or lesions HEENT: NC/AT, PERRL, EOMI, anicteric sclera, conjunctiva without injection, external ear normal to inspection and nontender, nares patent, moist mucus membranes, dentition intact, no oropharyngeal lesions, neck supple, trachea midline, no LAD, no thyromegaly, no JVD Heart: +S1/S2, regular, no m/r/g Lungs: equal air entry bilaterally, no rales/rhonchi/wheezes Abd: +BS, soft, NT/ND, no masses/organomegaly/ascites Ext: warm, 2+ pulses in UE/LE bilaterally, no clubbing/cyanosis or edema, LUE AV fistula with palpable thrill Neuro: nonfocal, patient AA&O x 4, speech intact, no facial droop, moving all extremities on command with equal strength 5/5 Results & Data Results & Data ([facility]) Vital Signs (Past 12 Hours) Vital Signs Temp Pulse Pulse Resp BP BP Pulse Ox 09/26/19 04:26 90 20 192/90 H 100 09/26/19 04:16 89 18 202/97 H 100 09/26/19 03:29 86 20 216/106 H 99 09/26/19 03:05 85 18 215/107 H 99 09/26/19 02:56 84 18 219/104 H 98 09/26/19 02:33 88 20 237/105 H 98 09/26/19 01:54 91 H 18 224/102 H 95 09/26/19 01:43 91 H 18 226/105 H 97 09/26/19 01:27 98 H 20 230/111 H 93 09/26/19 00:45 36.4 C L 95 H 19 189/78 H 100 Laboratory Results Lab Results 09/26/19 09/26/19 09/26/19 Range/Units 01:04 01:04 03:47 WBC 11.28 H (4.8-10.8) K/uL RBC 4.23 L (4.7-6.1) M/uL Hgb 14.4 (14.0-18.0) g/dL Hct 41.6 L (42-52) % MCV 98.3 (80-100) fL MCH 34.0 (25-34) pg MCHC 34.6 (32-36) g/dL RDW Std Deviation 43.3 (36.4-46.3) fL RDW Coeff of Kami 12.0 (11.5-14.5) % Plt Count 296 (130-400) K/uL MPV 9.1 (7.4-10.4) fL Immature Gran % (Auto) 0.4 % Neut % (Auto) 73.7 % Lymph % (Auto) 16.3 % Stanley % (Auto) 7.6 % Eos % (Auto) 1.4 % Baso % (Auto) 0.6 % Immature Gran # (Auto) 0.05 H (0.00-0.02) K/uL Neut # (Auto) 8.30 H (1.4-6.5) K/uL Lymph # (Auto) 1.84 (1.2-3.4) K/uL Stanley # (Auto) 0.86 H (0.11-0.59) K/uL Eos # (Auto) 0.16 (0-0.5) K/uL Baso # (Auto) 0.07 (0-0.2) K/uL Sodium 132 L (136-145) mmol/L Potassium 3.8 (3.5-5.1) mmol/L Chloride 98 (98-107) mmol/L Carbon Dioxide 23 (21-32) mmol/L Anion Gap 11.0 (3-11) BUN 79 H (7-18) mg/dl Creatinine 9.36 H* (0.6-1.4) mg/dl Est Cr Clr Drug Dosing Not Reportable Est GFR ( Amer) 6.8 Est GFR (Non-Af Amer) 5.9 BUN/Creatinine Ratio 8.4 L (10-20) Glucose 205 H (70-99) mg/dl POC Glucose 319 H* (70-99) mg/dl Calcium 9.6 (8.5-10.1) mg/dl Magnesium 2.6 H (1.8-2.4) mg/dl Total Bilirubin 0.4 (0.2-1) mg/dl Direct Bilirubin 0.1 (0-0.2) mg/dl AST 18 (15-37) U/L ALT 37 (12-78) U/L Alkaline Phosphatase 103 (45-117) U/L Troponin I < 0.015 (0-0.045) ng/ml Total Protein 8.1 (6.4-8.2) gm/dl Albumin 4.2 (3.4-5.0) gm/dl Lipase 102 (73-393) U/L 04/20/20 Range/Units 04:24 WBC (4.8-10.8) K/uL RBC (4.7-6.1) M/uL Hgb (14.0-18.0) g/dL Hct (42-52) % MCV (80-100) fL MCH (25-34) pg MCHC (32-36) g/dL RDW Std Deviation (36.4-46.3) fL RDW Coeff of Kami (11.5-14.5) % Plt Count (130-400) K/uL MPV (7.4-10.4) fL Immature Gran % (Auto) % Neut % (Auto) % Lymph % (Auto) % Stanley % (Auto) % Eos % (Auto) % Baso % (Auto) % Immature Gran # (Auto) (0.00-0.02) K/uL Neut # (Auto) (1.4-6.5) K/uL Lymph # (Auto) (1.2-3.4) K/uL Stanley # (Auto) (0.11-0.59) K/uL Eos # (Auto) (0-0.5) K/uL Baso # (Auto) (0-0.2) K/uL Sodium (136-145) mmol/L Potassium (3.5-5.1) mmol/L Chloride (98-107) mmol/L Carbon Dioxide (21-32) mmol/L Anion Gap (3-11) BUN (7-18) mg/dl Creatinine (0.6-1.4) mg/dl Est Cr Clr Drug Dosing Est GFR ( Amer) Est GFR (Non-Af Amer) BUN/Creatinine Ratio (10-20) Glucose (70-99) mg/dl POC Glucose 261 H (70-99) mg/dl Calcium (8.5-10.1) mg/dl Magnesium (1.8-2.4) mg/dl Total Bilirubin (0.2-1) mg/dl Direct Bilirubin (0-0.2) mg/dl AST (15-37) U/L ALT (12-78) U/L Alkaline Phosphatase (45-117) U/L Troponin I (0-0.045) ng/ml Total Protein (6.4-8.2) gm/dl Albumin (3.4-5.0) gm/dl Lipase (73-393) U/L Code Status & VTE Plan Code Status FULL PG Care Time/CCT Total # of Minutes Spent Total Time Spent with Patient: Total time spent is greater than 50% in coordination of care (as documented) at patient's floor/unit and/or counseling patient: Coding Level of Care Code 52330 Initial Inpt Care Lvl 3 Diagnoses Intractable nausea and vomiting R11.2 Hypertensive urgency I16.0 ESRD on dialysis N18.6; Z99.2 Diabetes mellitus type I E10.69 Diabetes mellitus complication status: with other specified complication CAD (coronary artery disease) I25.10 Coronary Disease-Associated Artery/Lesion type: stebbins artery Robinson vs. transplanted heart: stebbins heart Associated angina: without angina Depression F33.9 Depression Type: major depressive disorder Major depression recurrence: recurrent Active/Remission status: remission status unspecified (1) Diabetes mellitus type I Diabetes mellitus complication status: with other specified complication Qualified Code(s): E10.69 - Type 1 diabetes mellitus with other specified complication (2) CAD (coronary artery disease) Coronary Disease-Associated Artery/Lesion type: stebbins artery Robinson vs. transplanted heart: stebbins heart Associated angina: without angina Qualified Code(s): I25.10 - Atherosclerotic heart disease of stebbins coronary artery without angina pectoris (3) Depression Depression Type: major depressive disorder Major depression recurrence: recurrent Active/Remission status: remission status unspecified Qualified Code(s): F33.9 - Major depressive disorder, recurrent, unspecified
[2019-09-26] MEDS ORDERED: Nursing to Pharmacy Communication ONE ×2 (05:16→14:29)
[2019-09-26] MEDS ORDERED: CALCIUM ACETATE 667 MG CAP/TAB PO PRN (05:41)
[2019-09-26] MEDS: ONDANSETRON INJ 2 MG/ML 2 ML VIAL IV SCH ×2 (05:54→14:38)
[2019-09-26] MEDS: INSULIN HUMAN REGULAR SC SCH ×8 (06:00→20:45)
[2019-09-26] MEDS ORDERED: INSULIN ASPART 100 UNITS/ML 3 ML PEN SC SCH (07:30)
[2019-09-26] MEDS: CALCIUM ACETATE 667 MG CAP/TAB PO SCH ×3 (07:53→17:38)
[2019-09-26] MEDS ORDERED: SODIUM CHLORIDE 0.9% 1000ML 1,000 ML IV PRN (08:38)
[2019-09-26] MEDS ORDERED: HEPARIN SOD (PORCINE) 1000 UNIT/ML 10 ML VIAL IV ONE (08:38)
[2019-09-26] MEDS ORDERED: FAMOTIDINE 20 MG TAB PO SCH (09:00)
[2019-09-26] MEDS ORDERED: INSULIN GLARGINE SOLOSTAR 100 UNITS/ML 3 ML PEN SQ SCH (09:00)
[2019-09-26] MEDS ORDERED: LORazepam 1 MG/2 ML VIAL IV PRN (09:23)
--- NOTE | 2019-09-26 11:19 | Electrocardiogram Report ---
Test Reason : Blood Pressure : / mmHG Vent. Rate : 101 BPM Atrial Rate : 101 BPM P-R Int : 110 ms QRS Dur : 102 ms QT Int : 396 ms P-R-T Axes : 000 056 046 degrees QTc Int : 513 ms Poor data quality, interpretation may be adversely affected Sinus tachycardia Nonspecific ST and T wave abnormality Abnormal ECG When compared with ECG of 04-JUN-2019 06:59, Non-specific change in ST segment in Inferior leads ST now depressed in Anterior leads Confirmed by Dewayne Spivey ([id number]) on 09/26/2019 11:19:10 AM Referred By: REFERRED SELF Confirmed By:Pee Spivey
[2019-09-26] MEDS: HEPARIN SOD (PORCINE) 1000 UNIT/ML 10 ML VIAL IV SCH ×2 (13:52→13:53)
[2019-09-26] MEDS: AMLODIPINE BESYLATE 5 MG TAB PO SCH (14:35)
[2019-09-26] MEDS: BuPROPion SR 100 MG TABCR PO SCH (14:35)
[2019-09-26] MEDS: ATORVASTATIN 10 MG TAB PO SCH (14:35)
[2019-09-26] MEDS: carvediloL 25 MG TAB PO SCH ×2 (14:35→20:44)
[2019-09-26] MEDS: NEPHROCAPS PO SCH (14:36)
[2019-09-26] MEDS: SERTRALINE HCL 100 MG TABLET PO SCH (14:36)
[2019-09-26] MEDS: LOSARTAN POTASSIUM 25 MG TAB PO SCH (14:36)
[2019-09-26] MEDS ORDERED: ONDANSETRON INJ 2 MG/ML 2 ML VIAL IV PRN (15:00)
--- NOTE | 2019-09-26 15:00 | History & Physical Bridge Note ---
Date of Service September 26, 2019 History & Physical Bridge Note I have examined the patient, reviewed the History & Physical and in the interval since the performance of the History & Physical I have noted the following changes of clinical significance: Was continuing to have nausea this AM despite Zofran and Reglan. I ordered him Ativan and this really helped. He also went for HD and BPs now much improved. Pt having hiccups after HD but otherwise feeling much better. No chest pain or SOB, no ab dpain, no further nausea. Moved his bowels semi-formed today. Vitals reviewed Tele with NSR, rates 80-90s NAD, sleeping but easily awoken RRR no mgr CTAB no wcr ABd +BS soft NT ND Ext no edema 49 yo male with complex medical history, here with hypertensive urgency and intractable N/V, secondary to his usual gastroparesis plus may be from his elevated bP. Now much improved -continue to adv diet as tolerated -continue home BP meds, routine HD MWF Appreciate Nephro consult Possible dc to home tomorrow if agustín po and BPs controlled
--- NOTE | 2019-09-26 15:13 | Nephrology Consultation ---
Date of Consultation September 26, 2019 Assessment & Plan (1) ESRD on dialysis: Patient with ESRD on HD MWF. Last HD was on Thursday which was un eventful. His electrolytes are stable. Will dialyze him today for 3.5hrs on a 3k bath and target UF 1 litre. (2) Hypertensive urgency: BP is high partly due to vomiting. His BP has improved after HD. Continue current regimen including amlodipine, coreg and losartan (3) Intractable nausea and vomiting: Due to gastroparesis from longstanding DM. Continue conservative management. Will avoid large UF today. Stop iv fluids. History of Present Illness Reason for Consultation: ESRD and vomiting Requesting Physician: Mireille Ponce MD Attending Physician: Mireille Ponce MD History of Present Illness 49-year-old male with ESRD on Thursday hemodialysis was admitted overnight with hypertensive urgency and intractable nausea and vomiting. Medical history includes type 1 diabetes with chronic and severe gastroparesis multiple admissions for same, hypertension, significant/severe depression. Last HD was Thursday. he has a left UA AV fistula. He is complaining of vomiting. No diarrhoea. No SOB. His po intake has improved and he has gained weight compared to previous admissions.His BP was high int he ED in the 190's. BP is better this morning Allergies Allergy/AdvReac Type Severity Reaction Status Date / Time shellfish derived Allergy Severe anaphylaxis Verified 09/26/19 01:41 codeine Allergy Intermediate Hives Verified 09/26/19 01:41 promethazine Allergy Intermediate itchy/hives Verified 09/26/19 01:41 Home Medications Home Medications Medication Instructions Recorded Confirmed Type [place] Caps 1 cap PO QAM 12/19/18 09/26/19 History sertraline 100 mg PO QAM 03/21/19 09/26/19 History bupropion HCl 100 mg tablet,12 hr 100 mg PO QAM ea 04/14/19 09/26/19 History sustained-release ondansetron 4 mg disintegrating 4 mg PO Q6H PRN 04/27/19 09/26/19 History tablet Contour Next Test Strips #240 ea NS 05/04/19 08/16/19 Rx Basaglar KwikPen U-100 Insulin 30 units SQ QAM 05/16/19 09/26/19 History calcium acetate(phosphat bind) 667 mg PO DIRECTED MDD 7 05/31/19 09/26/19 History CAPSULES/DAILY famotidine 20 mg tablet 20 mg PO 3XWK #90 tab 06/10/19 09/26/19 Rx carvedilol 25 mg tablet 25 mg PO BID tab 06/16/19 09/26/19 History atorvastatin 10 mg PO QAM 06/21/19 09/26/19 History losartan 75 mg PO QAM 06/21/19 09/26/19 History metoclopramide HCl 5 mg PO ACHS 06/21/19 09/26/19 History BD Ultra-Fine Annalise Pen Needle 32 #800 ea NS 07/11/19 08/16/19 Rx gauge x " acetaminophen [Acetaminophen Extra 500 mg PO Q6H PRN MDD 3000 MG/DAY 07/13/19 09/26/19 History Strength] sennosides-docusate sodium [Senna 1 tab-cap PO BID 07/13/19 09/26/19 History with Docusate Sodium] lorazepam 0.5 mg tablet 0.5 mg PO DAILY PRN tab 07/25/19 09/26/19 History amlodipine 5 mg PO QAM 09/26/19 09/26/19 History insulin aspart U-100 [Novolog 0 unit SUBCUT UD PRN 09/26/19 09/26/19 History Flexpen U-100 Insulin] Patient History Medical History (Updated 09/26/19 @ 07:34 by Cuong Burrows MD) Acute hypokalemia Acute hyponatremia (Inactive) Anxiety AV fistula left arm CAD (coronary artery disease) mild, non-obstructive CAD per 10/2018 cardiac cath> FOLLOWS [facility] Dehydration (Inactive) Depression Diabetes mellitus type I (Chronic) Diabetic neuropathy Diabetic retinopathy Dialysis patient (Inactive) ESRD (end stage renal disease) Hemodialysis via permacath RIGHT CHEST M,W,F (Follows with Dr. Taylor Higgins; [facility]) Gastroparesis (Chronic) GERD (gastroesophageal reflux disease) Heart failure with reduced ejection fraction (Chronic) Hypertension Hypertensive urgency (Inactive) Kidney stones Surgical History H/O shoulder surgery RIGHT History of appendectomy History of cardiac cath 10/2018= no stents, no obstructive disease (at [facility]) History of esophagogastroduodenoscopy (EGD) History of hip surgery LEFT HIP ARTHROSCOPY History of lithotripsy History of open reduction and internal fixation (ORIF) procedure right hip Nausea and vomiting after administration of anesthetic agent Permanent central venous catheter in place Permacath S/P arteriovenous (AV) fistula creation left arm Social History Preferred Language: Welsh Communication Ability: Effective Visual Impairment: No Limitations Hearing Ability: Normal Senior Architectural Designer Required: No Beliefs That Will Affect Care: None marital status: Single Current Living Situation: Parent Current Living Situation Comment: CURRENT : [facility] current occupational status: unemployed Feels Safe at Home: Yes Smoking Status: Never smoker Tobacco Type: smokeless tobacco ; Second Hand Exposure: No (QUIT 02/2019) ; Hx Alcohol Use: No Hx Substance Use: No Childhood Exposure to Second-Hand Smoke: Yes Dental Care, Regularly: No Physical Activity Frequency: 1-2 Times per Week Seatbelt Use: always Sunscreen Use: No Review of Systems Review of Systems: All systems reviewed & are unremarkable except as noted in HPI & below Physical Exam Physical Exam: General exam: Appears comfortable, no acute distress HEENT: Pupils are equal and reactive to light Neck: No JVD, neck is supple trachea is midline Respiratory system: Clear breath sounds bilaterally. Gastrointestinal: Abdomen is soft, non distended, non tender, bowel sounds are present CVS: Regular rate and rhythm. No murmurs, rubs or gallops Musculoskeletal: No joint or muscle tenderness Extremities: Non tender, no edema, peripheral pulses are present Neuro: Oriented, no tremors, no focal neurological deficits Skin: No rashes Access: left UA AVF with good bruit Results & Data Vital Signs (Past 12 Hours) Vital Signs Temp Pulse Pulse Pulse Pulse Resp BP 09/26/19 14:28 36.4 C L 97 H 18 09/26/19 13:59 37.1 C 92 H 92 H 174/94 H 09/26/19 13:40 93 H 145/84 H 09/26/19 13:20 94 H 150/80 H 09/26/19 13:00 93 H 141/75 H 09/26/19 12:40 92 H 152/77 H 09/26/19 12:20 92 H 140/85 09/26/19 12:00 92 H 131/71 09/26/19 11:40 92 H 133/84 09/26/19 11:00 92 H 159/78 H 09/26/19 10:41 92 H 09/26/19 10:40 92 H 163/82 H 09/26/19 10:22 88 173/84 H 09/26/19 10:15 37.2 C 89 09/26/19 07:49 93 H 09/26/19 06:56 36.6 C 94 H 22 09/26/19 04:50 36.4 C L 92 H 20 09/26/19 04:26 90 20 09/26/19 04:16 89 18 09/26/19 03:29 86 20 BP Pulse Ox 09/26/19 14:28 148/62 H 99 09/26/19 13:59 174/94 H 09/26/19 13:40 09/26/19 13:20 09/26/19 13:00 09/26/19 12:40 09/26/19 12:20 09/26/19 12:00 09/26/19 11:40 09/26/19 11:00 09/26/19 10:41 09/26/19 10:40 09/26/19 10:22 09/26/19 10:15 09/26/19 07:49 189/86 H 09/26/19 06:56 191/82 H 99 09/26/19 04:50 180/80 H 100 09/26/19 04:26 192/90 H 100 09/26/19 04:16 202/97 H 100 09/26/19 03:29 216/106 H 99 Laboratory Results 09/26/19 01:04 09/26/19 09/26/19 09/26/19 01:04 01:04 01:04 WBC 11.28 H RBC 4.23 L MCV 98.3 MCH 34.0 MCHC 34.6 RDW Std Deviation 43.3 RDW Coeff of Kami 12.0 Plt Count 296 MPV 9.1 Phosphorus 3.7 Albumin 4.2
[2019-09-27 07:35] LABS: Basophils # (auto) 0.03 K/uL (0-0.2); Basophils % (auto) 0.3 %; Eosinophils # (auto) 0.08 K/uL (0-0.5); Eosinophils % (auto) 0.7 %; Hematocrit (blood only) 36.8 % (42-52); Hemoglobin 11.9 g/dL (14.0-18.0); Immature Granulocytes # (auto) 0.01 K/uL (0.00-0.02); Immature Granulocytes % (auto) 0.1 %; Lymphocytes # (auto) 2.67 K/uL (1.2-3.4); Lymphocytes % (auto) 22.7 %; Mean Corpuscular Hemoglobin 33.1 pg (25-34); Mean Corpuscular Hgb Conc 32.3 g/dL (32-36); Mean Corpuscular Volume 102.2 fL (80-100); Monocytes # (auto) 1.36 K/uL (0.11-0.59); Monocytes % (auto) 11.6 %; Neutrophils # (auto) 7.59 K/uL (1.4-6.5); Neutrophils % (auto) 64.6 %; Platelet Count 255 K/uL (130-400); RDW Coefficient of Variation 12.3 % (11.5-14.5); RDW Standard Deviation 46.4 fL (36.4-46.3); White Blood Count 11.74 K/uL (4.8-10.8)
[2019-09-27 08:27] LABS: BUN Creatinine Ratio 6.5 (10-20); Calcium 8.8 mg/dl (8.5-10.1); Creatinine Clr Calc Pharmacy 12.7 ml/min; Est GFR (African American) 11.4; Est GFR (Non-African American) 9.9; Potassium 4.4 mmol/L (3.5-5.1)
[2019-09-27] MEDS: INSULIN HUMAN REGULAR SC SCH ×5 (09:00→12:16)
[2019-09-27] MEDS: CALCIUM ACETATE 667 MG CAP/TAB PO SCH ×2 (09:05→12:17)
[2019-09-27] MEDS: carvediloL 25 MG TAB PO SCH (09:06)
[2019-09-27] MEDS: LOSARTAN POTASSIUM 25 MG TAB PO SCH (09:06)
[2019-09-27] MEDS: AMLODIPINE BESYLATE 5 MG TAB PO SCH (09:06)
[2019-09-27] MEDS: SERTRALINE HCL 100 MG TABLET PO SCH (09:06)
[2019-09-27] MEDS: ATORVASTATIN 10 MG TAB PO SCH (09:06)
[2019-09-27] MEDS: NEPHROCAPS PO SCH (09:06)
[2019-09-27] MEDS: BuPROPion SR 100 MG TABCR PO SCH (09:06)
--- NOTE | 2019-09-27 10:04 | Nephrology Progress Note ---
Date of Service September 27, 2019 Assessment & Plan (1) ESRD on dialysis: Patient with ESRD on HD MWF. Last outpatient HD was on Thursday which was un eventful. His electrolytes are stable. He had dialysis 09/26/2019 for 3.5hrs on a 3k bath and target UF 1 litre. No indication for dialysis today. From renal standpoint patient can be discharged to continue dialysis outpatient. Next dialysis will be tomorrow. (2) Hypertensive urgency: BP has improved after HD. Continue current regimen including amlodipine, coreg and losartan (3) Intractable nausea and vomiting: Due to gastroparesis from longstanding DM. Continue conservative management. Will avoid large UF today. Encourage p.o. intake. Admission and Anticipated Discharge Date Admission Date: September 26, 2019 Anticipated date of discharge: 09/28/19 Subjective Patient feels better today. No vomiting today. He tolerated dialysis well yesterday. No shortness of breath. Review of Systems Review of Systems: All systems reviewed & are unremarkable except as noted in HPI & below Physical Exam Physical Exam: General exam: Appears comfortable, no acute distress HEENT: Pupils are equal and reactive to light Neck: No JVD, neck is supple trachea is midline Respiratory system: Clear breath sounds bilaterally. Gastrointestinal: Abdomen is soft, non distended, non tender, bowel sounds are present CVS: Regular rate and rhythm. No murmurs, rubs or gallops Musculoskeletal: No joint or muscle tenderness Extremities: Non tender, no edema, peripheral pulses are present Neuro: Oriented, no tremors, no focal neurological deficits Skin: No rashes Access: Left upper arm AV fistula with good bruit Results & Data ([facility]) Vital Signs (Past 12 Hours) Vital Signs Temp Pulse Pulse Resp BP Pulse Ox 09/27/19 07:53 36.7 C 79 17 148/68 H 95 09/27/19 03:56 36.7 C 84 19 124/60 94 09/26/19 23:12 36.8 C 80 17 103/61 96 Laboratory Results 09/27/19 07:18 09/27/19 07:18 WBC 11.74 H RBC 3.60 L MCV 102.2 H MCH 33.1 MCHC 32.3 RDW Std Deviation 46.4 H RDW Coeff of Kami 12.3 Plt Count 255 MPV 9.0
--- NOTE | 2019-09-27 14:51 | Discharge Summary ---
Date of Service September 27, 2019 Admission HPI Per Admitting Provider Jorge Alberto De Los Santos is a 49yo C male with history of ESRD on HD q M/W/F, DM/CAD/GERD/Gastroparesis. He presents to the ER this evening with complaint of acute onset nausea that started around 21:30 when he was watching TV. +Nausea with multiple episodes of non-bloody emesis. +loose stools. He denies fever/chills/CP/SOB/abdominal pain. Patient has gastroparesis requiring multiple hospital admissions in the past. He feels that his current sympoms are consistent with prior episodes of gastroparesis. In the ER he was found to be hypertensive, 216/106. He was administered multiple doses of IV Labetalol as well as IV Hydralazine with minimal improvement. Patient denies CHANEL, visual change, CP, palpitations, SOB or back pain. No additional complaints at this time. ER Course: Benadryl, Hydralazine, Labetalol, Reglan, Prochlorperazine Principal Diagnosis Intractable nausea/vomiting, hypertensive emergency Discharge Exam Constitutional WD/WN, vitals as above Eyes PERRL, conjunctivae normal, anicteric sclerae ENMT external ear and nose normal, oropharynx normal Neck trachea midline, no thyromegaly Respiratory normal respiratory effort, lungs clear to auscultation Cardiovascular RRR, no murmur, no edema Chest (Breasts) Chest: normal inspection of chest Gastrointestinal (Abdomen) normal bowel sounds, soft, nontender, no hepatosplenomegaly Musculoskeletal Extremities: extremities normal to inspection; no cyanosis and no clubbing Skin no rashes, warm and dry Neurologic moves all extremities and awake; no focal motor deficits Psychiatric A+Ox3, euthymic affect Lymphatic no lymphedema Discharge Data Allergies Allergy/AdvReac Type Severity Reaction Status Date / Time shellfish derived Allergy Severe anaphylaxis Verified 09/26/19 01:41 codeine Allergy Intermediate Hives Verified 09/26/19 01:41 promethazine Allergy Intermediate itchy/hives Verified 09/26/19 01:41 Consultations 09/26/19 03:37 ED Decision to Admit Stat 09/26/19 05:09 Consult Nephrology Routine Hospital Course (1) Intractable nausea and vomiting: This pt is a 49 yo male with complex medical history, here with hypertensive urgency and intractable N/V, secondary to his usual gastroparesis plus may be from his elevated BP. Now much improved, BPs much improved, tolerating regular diet -continue home BP meds, routine HD MWF Appreciate Nephro consult (2) Hypertensive urgency: Patient with hypertensive urgency, no evidence of end-organ damage. Received labetalol, hydralazine, and home BP meds Controlled nausea/vomiting -Resume home medications, Amlodipine 5mg po qAM, Carvedilol 25mg po BID and Losartan 75 mg po qAM -had hemodialysis here (3) ESRD on dialysis: Patient with ESRD on HD q M//. -receove HD here on usual days -Continue Phoslo, Rains Caps -HD dosing where necessary (4) Diabetes mellitus type I: Patient with DM nephropathy, neuropathy, gastroparesis, retinopathy. Last CtxK4A=6.6 on 06/04/19 -continue usual insulin at home (5) CAD (coronary artery disease): Chronic. Stable. No acute issues -Continue Atorvastatin, Carvedilol, Losartan (6) Depression: Chronic. -Continue Sertraline, Bupropion stable for dc to home Total Time Total Time Spent Total Time Spent (In Minutes): 40 min Total Time Includes: Examination of the Patient, Discharge Planning and Medication Reconciliation Discharge Plan Discharge Items Patient Disposition: Home - Self-Care Reason For Visit: HTN URGENCY Discharge Diagnosis: Hypertensive urgency, intractable nausea/vomiting Condition on Discharge: Good Activity: Resume your previous activity Non-emergency contact: Primary Care Provider Call non-emergency contact if: you have any medication questions and your symptoms worsen Follow-up/Referrals: Abbi Ames MD [Primary Care Provider] - (Please call to see if Dr. Ferrera wants to see you within 2 weeks.) Diet: Carb Count or DM1 and Dialysis Renal Addtl Attending Provider Instructions: Please continue your usual scheduled dialysis and all medications as before. Pending Studies at Discharge: No Stand-Alone Forms: [facility] Medications and DC Order Prescriptions: Continued bupropion HCl 100 mg tablet sustained-release 12 hr 100 mg PO QAM RF: 0 (DME) Contour Next Test Strips strip See Dose Instructions .ROUTE .MEDSUPPLY Qty: 240 RF: 5 famotidine 20 mg tablet 20 mg PO 3XWK Qty: 90 RF: 1 (DME) pen needle, diabetic [BD Ultra-Fine Annalise Pen Needle] 32 gauge x 5/32" needle See Rx Instructions .ROUTE .MEDSUPPLY Qty: 800 RF: 3 carvedilol 25 mg tablet 25 mg PO BID RF: 0 ondansetron 4 mg tablet,disintegrating 4 mg PO Q6H PRN (Reason: Nausea And Vomiting) RF: 0 lorazepam 0.5 mg tablet 0.5 mg PO DAILY PRN (Reason: Anxiety) RF: 0 losartan 50 mg tablet 75 mg PO QAM RF: 0 atorvastatin 10 mg tablet 10 mg PO QAM RF: 0 metoclopramide HCl 5 mg tablet 5 mg PO ACHS RF: 0 acetaminophen [Acetaminophen Extra Strength] 500 mg Tablet 500 mg PO Q6H MDD 3000 MG/DAY PRN (Reason: Fever Or Pain) RF: 0 sennosides-docusate sodium [Senna with Docusate Sodium] 8.6-50 mg Tablet 1 tab-cap PO BID RF: 0 Hold Instructions: does not need amlodipine 5 mg tablet 5 mg PO QAM RF: 0 insulin aspart U-100 [Novolog Flexpen U-100 Insulin] 100 unit/mL (3 mL) insulin pen 0 unit SUBCUT UD PRN (Reason: sliding scale) RF: 0 Chris Caps 1 mg capsule 1 cap PO QAM RF: 0 sertraline 100 mg tablet 100 mg PO QAM RF: 0 calcium acetate(phosphat bind) 667 mg capsule 667 mg PO DIRECTED MDD 7 CAPSULES/DAILY RF: 0 Changed Basaglar KwikPen U-100 Insulin 100 unit/mL (3 mL) insulin pen 15 units SQ QAM Qty: 0 RF: 0 Discharge Orders: Discharge Order (Routine); Ordered 09/27/19 Ordered By: Mireille Ponce Admission Data Admit Date/Time: 09/26/19 04:15 Attending Provider: Mireille Ponce Admit Provider: Marielos Cervantes Primary Care Provider: Abbi Ames V. Other Providers: Suman Montilla Other Interventions: Discharge Summary Assessment (RN) Last Done: 09/27/19 15:47 DC Date/Time DO NOT enter until pt leaves facility: 09/27/19 16:01 Coding Level of Care Code D/C Day Management >30 mins Diagnoses Intractable nausea and vomiting R11.2 Hypertensive urgency I16.0 ESRD on dialysis N18.6; Z99.2 Diabetes mellitus type I E10.69 Diabetes mellitus complication status: with other specified complication CAD (coronary artery disease) I25.10 Associated angina: without angina Coronary Disease-Associated Artery/Lesion type: mo[place]gan artery [place] vs. transplanted heart: mohegan heart Depression F33.9 Active/Remission status: remission status unspecified Depression Type: major depressive disorder Major depression recurrence: recurrent
== END 2019-09-27 16:01 | disposition home or self-care (01) | DRG 73 ==
LOC: ED 00:43 → 2S 04:15 → SUATTDRO 04:15 → 2S 04:44

== ENCOUNTER 2019-11-10 16:21 | Observation (INO) ==
[2019-11-10] MEDS ORDERED: MoRPHine SULFATE 4 MG/ML 1 ML CARP\\VIAL IM STA (16:37)
[2019-11-10] MEDS ORDERED: ONDANSETRON 4 MG OD TAB PO STA (16:37)
--- NOTE | 2019-11-10 16:42 | Emergency Department Note ---
Impression & Plan Vomiting, Gastroparesis, Fall, Lumbar radiculopathy ED Provider Note NAME: JERARDO PEREZ AGE: 49 SEX: M : 1970 ARRIVES VIA: Walk-In INFORMANT: Patient, ED PROVIDER(S): Obie Lancaster DO CHIEF COMPLAINT: back pain HPI: Patient is a 49-year-old male with CAD on dialysis Thursday, Thursday, Thursday the presents to the ER for lower back pain. He was in the shower yesterday and slipped and fell onto his butt and hurt his back. He denies hitting his head. No head or neck pain. No chest or belly pain. Patient admits to nausea secondary to the pain. Pain is a 9 out of 10. Notes that he has an old T11 and T12 fracture. Pain is mainly present when sitting. It goes into his back and into his butt. Denies any chest pain, shortness of breath, or diarrhea. No other exacerbating or remitting factors. He notes he did start with some dry heaves and vomiting midday today. ROS: See above HPI for pertinent positives & negatives. A total of 10 systems reviewed and were otherwise negative. PAST MEDICAL HISTORY:See Below PAST SURGICAL HISTORY:See Below FAMILY HISTORY:See Below SOCIAL HISTORY:See Below HOME MEDICATIONS:See Below ALLERGIES:See Below VITALS:See Below PHYSICAL EXAMINATION: GENERAL: Sitting up in bed, alert, chronically ill-appearing laying on the right side in the position EYE EXAM: normal conjunctiva. PERRL and EOM's grossly intact. OROPHARYNX: no exudate, no erythema, lips, buccal mucosa, and tongue normal and mucous membranes are moist NECK: supple, no nuchal rigidity, no adenopathy, non-tender LUNGS: Clear to auscultation. Normal chest wall mechanics HEART: no murmurs, S1 normal and S2 normal ABDOMEN: abdomen soft, non-tender, normo-active bowel sounds, no masses, no rebound or guarding. BACK: Back is symmetrical on inspection and there is no deformity, no midline tenderness, no CVA tenderness. SKIN: no rashes and no bruising UPPER EXTREMITIES: upper extremities are grossly normal. LOWER EXTREMITIES: No pitting edema. Flexion and extension of the hips, knees, ankles, and EHL 5/5 bilaterally. Gross sensation is intact. DPs are 2/4 bilateral. Patellar and Achilles reflexes are 2/4 bilateral NEURO EXAM: Normal sensorium, cranial nerves II-XII grossly intact, normal speech, no gross weakness of arms, no gross weakness of legs. MEDICAL DECISION MAKING: Patient is a 49-year-old male with a history of CAD, gastroparesis CHF diabetes that presents the ER for slip and fall and back pain. He is also having dry heaving. This is fairly typical for him. X-rays of his back were unremarkable. He was given a small dose of IM morphine and 2 dose of oral ODT Zofran. Foll owing this he continued to vomit. IV was established blood work was obtained. This gentleman is extremely difficult stick and took IV team nearly an hour to obtain an IV site. He will need a port as the next time he presents he will likely need a central line if there is no port present. Labs showed a leukocytosis of 14,000. No significant anemia. BMP with mild hyponatremia. Creatinine 6.5. He gets dialysis Thursday. Had dialysis yesterday. LFTs bilirubin and lipase was unremarkable. He was given IV Reglan with no improvement. Finally he was given a dose of Ativan upon review of his last note. He does appear to only vomit while someone is in the room as if you stand outside the room there is no vomiting. He was given a dose of Protonix as after multiple episodes of retching he has small amount of blood in his spit. He was also given IV labetalol has his blood pressures trended up but he did not take his normal medications. He was discussed with the hospitalist for admission. Triage Nursing notes reviewed. Prior medical records reviewed Vital Signs: reviewed and remarkable for htn Differential diagnosis: Differential diagnoses includes but is not limited to gastritis, peptic ulcer disease, GERD, gallbladder disease, pancreatitis, small bowel obstruction, acute coronary syndrome, pericarditis, ischemic bowel, irritable bowel disease, irritable bowel syndrome, appendicitis, diverticulitis, malignancy, hernia, urinary tract infection, torsion, [/ectopic (if female)], perforation, trauma, infectious. ER treatment provided: See below Diagnostics interpreted by me: Cardiac Monitoring: An order was placed for continuous cardiac monitoring. The monitor shows a rate of 82 with sinus rhythm. Laboratory studies: As stated above and show below. Imaging studies: X-rays of the lumbar spine were unremarkable. Consultation(s): Discussed with Dr. Cervantes for admission. ED COURSE: Procedures: none Critical Care: None Past Med/Surg History Medical History (Updated 11/10/19 @ 21:41 by Obie Lancaster DO) Acute hypokalemia Acute hyponatremia (Inactive) Anxiety AV fistula left arm CAD (coronary artery disease) mild, non-obstructive CAD per 10/2018 cardiac cath> [facility] Dehydration (Inactive) Depression Diabetes mellitus type I (Chronic) Diabetic neuropathy Diabetic retinopathy Dialysis patient (Inactive) ESRD (end stage renal disease) Hemodialysis via permacath RIGHT CHEST M,W,F (Follows with Dr. Taylor Higgins; S/[place]) Gastroparesis (Chronic) GERD (gastroesophageal reflux disease) Heart failure with reduced ejection fraction (Chronic) Hypertension Hypertensive emergency (Inactive) Hypertensive urgency (Inactive) Hypertensive urgency (Inactive) Kidney stones Surgical History H/O shoulder surgery RIGHT History of appendectomy History of cardiac cath 10/2018= no stents, no obstructive disease (at [facility]) History of esophagogastroduodenoscopy (EGD) History of hip surgery LEFT HIP ARTHROSCOPY History of lithotripsy History of open reduction and internal fixation (ORIF) procedure right hip Nausea and vomiting after administration of anesthetic agent Permanent central venous catheter in place Permacath S/P arteriovenous (AV) fistula creation left arm Social History Preferred Language: Khmer Communication Ability: Effective Visual Impairment: No Limitations Hearing Ability: Normal Program Analyst Required: No Beliefs That Will Affect Care: None marital status: Single Current Living Situation: Parent Current Living Situation Comment: CURRENT : [facility] current occupational status: unemployed Feels Safe at Home: Yes Smoking Status: Never smoker Tobacco Type: smokeless tobacco ; Second Hand Exposure: No (QUIT 02/2019) ; Hx Alcohol Use: No Hx Substance Use: No Childhood Exposure to Second-Hand Smoke: Yes Dental Care, Regularly: No Physical Activity Frequency: 1-2 Times per Week Seatbelt Use: always Sunscreen Use: No Allergies Allergies Allergy/AdvReac Type Severity Reaction Status Date / Time shellfish derived Allergy Severe anaphylaxis Verified 11/10/19 16:52 codeine Allergy Intermediate Hives Verified 11/10/19 16:52 promethazine Allergy Intermediate itchy/hives Verified 11/10/19 16:52 Home Meds Home Medications Medication Instructions Recorded Confirmed [place] Caps 1 cap PO QAM 12/19/18 11/10/19 sertraline 100 mg PO QAM 03/21/19 11/10/19 bupropion HCl 100 mg tablet,12 hr 100 mg PO QAM ea 04/14/19 11/10/19 sustained-release ondansetron 4 mg disintegrating 4 mg PO Q6H PRN 04/27/19 11/10/19 tablet calcium acetate(phosphat bind) 667 mg PO DIRECTED MDD 7 05/31/19 11/10/19 CAPSULES/DAILY carvedilol 25 mg tablet 25 mg PO BID tab 06/16/19 11/10/19 atorvastatin 10 mg PO QAM 06/21/19 11/10/19 losartan 75 mg PO QAM 06/21/19 11/10/19 metoclopramide HCl 5 mg PO ACHS 06/21/19 11/10/19 acetaminophen [Acetaminophen Extra 500 mg PO Q6H PRN MDD 3000 MG/DAY 07/13/19 11/10/19 Strength] lorazepam 0.5 mg tablet 0.5 mg PO DAILY PRN tab 07/25/19 11/10/19 insulin aspart U-100 [Novolog 0 unit SUBCUT UD PRN 09/26/19 11/10/19 Flexpen U-100 Insulin] Previous Rx's Medication Instructions Recorded famotidine 20 mg tablet 20 mg PO 3XWK #90 tab 06/10/19 BD Ultra-Fine Annalise Pen Needle 32 #800 ea NS 07/11/19 gauge x 5/32" Basaglar KwikPen U-100 Insulin 15 units SQ QAM #0 ml 09/27/19 Contour Next Test Strips #300 ea NS 10/26/19 Results & Data (ED) Vital Signs Vital Signs - 24 hr 11/10/19 16:24 11/10/19 18:00 11/10/19 19:46 Temperature 36.7 C Temperature Source Oral Pulse Rate 87 Pulse Rate [Apical] 75 99 H Respiratory Rate 20 18 22 Respiratory Effort / Characteristics Non-Labored Non-Labored Spontaneous Respiratory Depth Normal Normal Respiratory Pattern Regular Blood Pressure 180/79 H Blood Pressure [Right Arm] 209/103 H Blood Pressure Mean 112 Blood Pressure Mean [Right Arm] 138 Blood Pressure Position Sitting Pulse Oximetry 100 98 100 Oxygen Delivery Method Room Air Room Air Room Air Sepsis Recent Fever Within 48 Hours No Sepsis New/Unexplained Change in Mental Status No Sepsis Action Taken by Nursing No Action Required Oxygen Flow Rate - Titration Pulse Oximetry Post Tiitration 11/10/19 20:01 11/10/19 20:04 Temperature Temperature Source Pulse Rate Pulse Rate [Apical] 86 Respiratory Rate 18 Respiratory Effort / Characteristics Non-Labored Spontaneous Respiratory Depth Normal Respiratory Pattern Blood Pressure Blood Pressure [Right Arm] 228/94 H Blood Pressure Mean Blood Pressure Mean [Right Arm] 138 Blood Pressure Position Pulse Oximetry 94 84 L Oxygen Delivery Method Room Air Room Air Sepsis Recent Fever Within 48 Hours Sepsis New/Unexplained Change in Mental Status Sepsis Action Taken by Nursing Oxygen Flow Rate - Titration 2 Pulse Oximetry Post Tiitration 100 Laboratory Data Result diagrams: 11/10/19 19:35 11/10/19 19:35 Lab Results 11/10/19 11/10/19 Range/Units 19:35 19:35 WBC 14.96 H (4.8-10.8) K/uL RBC 4.05 L (4.7-6.1) M/uL Hgb 13.1 L (14.0-18.0) g/dL Hct 39.2 L (42-52) % MCV 96.8 (80-100) fL MCH 32.3 (25-34) pg MCHC 33.4 (32-36) g/dL RDW Std Deviation 46.4 H (36.4-46.3) fL RDW Coeff of Kami 13.3 (11.5-14.5) % Plt Count 345 (130-400) K/uL MPV 8.7 (7.4-10.4) fL Immature Gran % (Auto) 0.3 % Neut % (Auto) 83.7 % Lymph % (Auto) 8.7 % [place] % (Auto) 6.6 % Eos % (Auto) 0.5 % Baso % (Auto) 0.2 % Immature Gran # (Auto) 0.05 H (0.00-0.02) K/uL Neut # (Auto) 12.52 H (1.4-6.5) K/uL Lymph # (Auto) 1.30 (1.2-3.4) K/uL [place] # (Auto) 0.98 H (0.11-0.59) K/uL Eos # (Auto) 0.08 (0-0.5) K/uL Baso # (Auto) 0.03 (0-0.2) K/uL Sodium 133 L (136-145) mmol/L Potassium 3.5 (3.5-5.1) mmol/L Chloride 94 L (98-107) mmol/L Carbon Dioxide 23 (21-32) mmol/L Anion Gap 16.0 H (3-11) BUN 37 H (7-18) mg/dl Creatinine 6.53 H* (0.6-1.4) mg/dl Est Cr Clr Drug Dosing 12.2 ml/min Est GFR ( Amer) 10.6 Est GFR (Non-Af Amer) 9.1 BUN/Creatinine Ratio 5.7 L (10-20) Glucose 165 H (70-99) mg/dl Calcium 9.5 (8.5-10.1) mg/dl Total Bilirubin 0.9 (0.2-1) mg/dl AST 12 L (15-37) U/L ALT 25 (12-78) U/L Alkaline Phosphatase 90 (45-117) U/L Total Protein 7.9 (6.4-8.2) gm/dl Albumin 4.1 (3.4-5.0) gm/dl Globulin 3.8 (2.5-4.0) gm/dl Albumin/Globulin Ratio 1.1 (0.9-2) Lipase 135 (73-393) U/L Administered Medications Discontinued Medications Pantoprazole Sodium 40 mg/ (Syringe) 10 mls @ 5 mls/min IV NOW ONE Stop: 11/10/19 19:51 Last Admin: 11/10/19 20:13 Dose: 5 mls/min Documented by: [id number] Lorazepam (Ativan) 1 mg in 2 mls @ 2 mls/min IV NOW STA Stop: 11/10/19 19:51 Last Admin: 11/10/19 20:16 Dose: Not Given Documented by: [id number] Lorazepam (Ativan) 0.5 mg in 1 mls @ 1 mls/min IV NOW STA Stop: 11/10/19 20:16 Last Admin: 06/04/20 20:16 Dose: 1 mls/min Documented by: [id number] Labetalol HCl (Normodyne) 10 mg IV NOW STA Stop: 11/10/19 19:50 Last Admin: 11/10/19 19:58 Dose: 10 mg Documented by: [id number] Cosigned by: [id number] Metoclopramide HCl (Reglan) 10 mg IV NOW STA Stop: 11/10/19 17:44 Last Admin: 11/10/19 19:46 Dose: 10 mg Documented by: [id number] Morphine Sulfate (Morphine Sulfate) 4 mg IM NOW STA Stop: 11/10/19 16:38 Last Admin: 11/10/19 16:43 Dose: 4 mg Documented by: [id number] Ondansetron HCl (Zofran Odt) 4 mg PO NOW STA Stop: 11/10/19 16:38 Last Admin: 11/10/19 16:43 Dose: 4 mg Documented by: [id number] Discharge Plan Visit Data Chief Complaint: Back Injury/Pain Stated Complaint: BACK PAIN, NAUSEA ED Provider: Obie Lancaster Discharge Problem: Vomiting, Gastroparesis, Fall, Lumbar radiculopathy Forms Stand Alone Forms: [facility] [employer] Prescriptions Prescriptions: No Action bupropion HCl 100 mg tablet sustained-release 12 hr 100 mg PO QAM RF: 0 famotidine 20 mg tablet 20 mg PO 3XWK Qty: 90 RF: 1 (DME) pen needle, diabetic [BD Ultra-Fine Annalise Pen Needle] 32 gauge x 5/32" needle See Rx Instructions .ROUTE .MEDSUPPLY Qty: 800 RF: 3 (DME) Contour Next Test Strips Strip See Dose Instructions .ROUTE .MEDSUPPLY Qty: 300 RF: 3 carvedilol 25 mg tablet 25 mg PO BID RF: 0 ondansetron 4 mg tablet,disintegrating 4 mg PO Q6H PRN (Reason: Nausea And Vomiting) RF: 0 lorazepam 0.5 mg tablet 0.5 mg PO DAILY PRN (Reason: Anxiety) RF: 0 losartan 50 mg tablet 75 mg PO QAM RF: 0 atorvastatin 10 mg tablet 10 mg PO QAM RF: 0 metoclopramide HCl 5 mg tablet 5 mg PO ACHS RF: 0 acetaminophen [Acetaminophen Extra Strength] 500 mg Tablet 500 mg PO Q6H MDD 3000 MG/DAY PRN (Reason: Fever Or Pain) RF: 0 insulin aspart U-100 [Novolog Flexpen U-100 Insulin] 100 unit/mL (3 mL) insulin pen 0 unit SUBCUT UD PRN (Reason: sliding scale) RF: 0 Basaglar KwikPen U-100 Insulin 100 unit/mL (3 mL) insulin pen 15 units SQ QAM Qty: 0 RF: 0 Chris Caps 1 mg capsule 1 cap PO QAM RF: 0 sertraline 100 mg tablet 100 mg PO QAM RF: 0 calcium acetate(phosphat bind) 667 mg capsule 667 mg PO DIRECTED MDD 7 CAPSULES/DAILY RF: 0 Discharge Problem: Vomiting Qualifiers: Vomiting type: unspecified Vomiting Intractability: unspecified Nausea presence: with nausea Qualified Code(s): R11.2 - Nausea with vomiting, unspecified Fall Qualifiers: Encounter type: initial encounter Qualified Code(s): W19.XXXA - Unspecified fall, initial encounter
--- NOTE | 2019-11-10 17:21 | XRay Report ---
LUMBAR SPINE 3 VIEWS CLINICAL HISTORY: Low back pain. FINDINGS: 3 views of the lumbar spine are compared to study dated 09/12/2018 and correlated with MRI o f the lumbar spine dated 09/14/2018. The skeletal structures are well mineralized. There is no radiogra phic evidence of fracture or malalignment. Vertebral body height and alignment are maintained through out the lumbar spine. There are chronic compression deformities of T11 and T12. Small anterior osteop hytes are seen throughout. The transverse and spinous processes are intact. The intervertebral disc s paces are well-maintained. The visualized bony pelvis appears intact. There is a nonobstructed abdomi nal bowel gas pattern. Electronically projects over the right abdomen. IMPRESSION: No acute bony abnormality is identified. ACT 112: Negative or not required by law. Electronically signed by: Dev Burden M.D. 11/10/2019 5:20 PM
[2019-11-10] MEDS ORDERED: METOCLOPRAMIDE HCL INJ 5 MG/ML 2 ML VIAL IV STA (17:43)
[2019-11-10 19:49] LABS: Basophils # (auto) 0.03 K/uL (0-0.2); Basophils % (auto) 0.2 %; Eosinophils # (auto) 0.08 K/uL (0-0.5); Eosinophils % (auto) 0.5 %; Hematocrit (blood only) 39.2 % (42-52); Hemoglobin 13.1 g/dL (14.0-18.0); Immature Granulocytes # (auto) 0.05 K/uL (0.00-0.02); Immature Granulocytes % (auto) 0.3 %; Lymphocytes % (auto) 8.7 %; Mean Corpuscular Hemoglobin 32.3 pg (25-34); Mean Corpuscular Hgb Conc 33.4 g/dL (32-36); Mean Corpuscular Volume 96.8 fL (80-100); Mean Platelet Volume 8.7 fL (7.4-10.4); Monocytes # (auto) 0.98 K/uL (0.11-0.59); Monocytes % (auto) 6.6 %; Neutrophils # (auto) 12.52 K/uL (1.4-6.5); Neutrophils % (auto) 83.7 %; Platelet Count 345 K/uL (130-400); RDW Coefficient of Variation 13.3 % (11.5-14.5); RDW Standard Deviation 46.4 fL (36.4-46.3); Red Blood Count 4.05 M/uL (4.7-6.1); White Blood Count 14.96 K/uL (4.8-10.8)
[2019-11-10] MEDS ORDERED: LABETALOL HCL IV 5 MG/ML 20ML IV STA (19:49)
[2019-11-10] MEDS ORDERED: LORazepam 1 MG/2 ML VIAL IV STA (19:50)
[2019-11-10] MEDS ORDERED: PANTOprazole 40 MG in SYRINGE 0 ML IV ONE (19:50)
[2019-11-10] MEDS ORDERED: LORazepam 0.5 MG/1 ML VIAL IV STA (20:15)
[2019-11-10 20:22] LABS: Albumin Globulin Ratio 1.1 (0.9-2); Albumin Level 4.1 gm/dl (3.4-5.0); BUN Creatinine Ratio 5.7 (10-20); Bilirubin,Total 0.9 mg/dl (0.2-1); Calcium 9.5 mg/dl (8.5-10.1); Creatinine Clr Calc Pharmacy 12.2 ml/min; Est GFR (African American) 10.6; Est GFR (Non-African American) 9.1; Globulin 3.8 gm/dl (2.5-4.0); Potassium 3.5 mmol/L (3.5-5.1); Total Protein 7.9 gm/dl (6.4-8.2)
--- NOTE | 2019-11-10 21:05 | History & Physical Report ---
Date of Service November 10, 2019 Assessment & Plan (1) Fall: Patient is a 49 year male with PMHx ESRD on dialysis, DM Type 1, CAD, Gastroparesis, and HTN who presents after having slipped in his shower the previous evening, also noting increased nausea and vomiting. Fall -Likely mechanical in nature -Lumbar XR in ED negative for acute fracture or process -If patient continues to have pain can initially consider K-Pad or lidoderm patch Nausea and Vomiting, likely 2/2 chronic Gastroparesis vs Viral Gastritis -White count 14.96 on admission, from demargination vs gastritis -NPO -Zofran 4mg q6h PRN -Reglan 5mg q6h PRN -Ativan 0.5mg as it may assist in nausea control -Slight hyponatremia 133, NSS 100 ml/hr -EKG ordered to check for QT prolongation as patient will be on Zofran and Reglan DM Type 1 -Last Hgb A1C 10/25/19 was 7.9 -Will hold home insulin regiment while inpatient -Will resume insulin regiment that was developed with pharmacy at last visit -Regular insulin q6h 2u for BSG <110 3u for BSG 110-150 4u for BSG >150 -Correction Factor of 30 with goal range 100-150 HTN -Labetalol 10mg IV PRN q4h for Sys >190, Zaidi >110 -continue patients home PO medications once tolerating -Losartan 75mg PO qAM -Coreg 25mg BID ESRD on Dialysis -Has dialysis on MWF -Cr 6.53 -Nephrology consulted CAD -Continue Lipitor 10mg PO QAM -Continue Coreg 25mg BID Depression -Continue Sertraline 100mg PO -Continue Wellbutrin 100mg PO Dispo: Med/Surg Tele FEN: NPO, NSS 100ml/hr DVT: SCDs Code: Full (2) Hypertension: (3) ESRD on dialysis: (4) Gastroparesis: (5) Diabetes mellitus type I: (6) CAD (coronary artery disease): (7) Depression: History of Present Illness Chief Complaint: Fall, Nausea, Gastroparesis Primary Care Provider: Abbi Ames MD Patient is a 49 year male with PMHx ESRD on dialysis, DM Type 1, CAD, Gastropar esis, and HTN who presents after having slipped in his shower the previous evening, also noting increased nausea and vomiting. Patient states that he was showering last night after having had dialysis when he had a "twisting motion" which caused him to strain his lower back. He states that he has a history of fractures in his T11-T12. He denies having fallen, just twisting and straining his back. He notes that since then he has had increasing nausea and has vomited at least 10x, each producing a dark brown mucoid like emesis. He denies any coffee ground emesis or jahaira blood. He notes that his last bowel movement was loose stools yesterday without any dark tarry or bloody stools as well. He notes that he has tried eating applesauce, but that he vomits it back 15 or so minutes after ingestion. He has not taken any of his home medications today except for tylenol which has not helped his symptoms. He denies any tobacco use, states he quit drinking 3-4 years ago and had been having "a few beers a week," and denies any drug use. Currently he notes that his nausea is better controlled. He is not complaining of low back pain. He does not have any chest pain, SOB, abdominal pain, or dizziness. Allergies Allergy/AdvReac Type Severity Reaction Status Date / Time shellfish derived Allergy Severe anaphylaxis Verified 11/10/19 16:52 codeine Allergy Intermediate Hives Verified 11/10/19 16:52 promethazine Allergy Intermediate itchy/hives Verified 11/10/19 16:52 Home Medications Home Medications Medication Instructions Recorded Confirmed Type [place] Caps 1 cap PO QAM 12/19/18 11/10/19 History sertraline 100 mg PO QAM 03/21/19 11/10/19 History bupropion HCl 100 mg tablet,12 hr 100 mg PO QAM ea 04/14/19 11/10/19 History sustained-release ondansetron 4 mg disintegrating 4 mg PO Q6H PRN 04/27/19 11/10/19 History tablet calcium acetate(phosphat bind) 667 mg PO DIRECTED MDD 7 05/31/19 11/10/19 History CAPSULES/DAILY famotidine 20 mg tablet 20 mg PO 3XWK #90 tab 06/10/19 11/10/19 Rx carvedilol 25 mg tablet 25 mg PO BID tab 06/16/19 11/10/19 History atorvastatin 10 mg PO QAM 06/21/19 11/10/19 History losartan 75 mg PO QAM 06/21/19 11/10/19 History metoclopramide HCl 5 mg PO ACHS 06/21/19 11/10/19 History BD Ultra-Fine Annalise Pen Needle 32 #800 ea NS 07/11/19 10/25/19 Rx gauge x 32" acetaminophen [Acetaminophen Extra 500 mg PO Q6H PRN MDD 3000 MG/DAY 07/13/19 11/10/19 History Strength] lorazepam 0.5 mg tablet 0.5 mg PO DAILY PRN tab 07/25/19 11/10/19 History insulin aspart U-100 [Novolog 0 unit SUBCUT UD PRN 09/26/19 11/10/19 History Flexpen U-100 Insulin] Basaglar KwikPen U-100 Insulin 15 units SQ QAM #0 ml 09/27/19 11/10/19 Rx Contour Next Test Strips #300 ea NS 10/26/19 Rx Past Med/Surg History Medical History (Updated 11/10/19 @ 21:41 by Obie Lancaster DO) Acute hypokalemia Acute hyponatremia (Inactive) Anxiety AV fistula left arm CAD (coronary artery disease) mild, non-obstructive CAD per 10/2018 cardiac cath> [facility] Dehydration (Inactive) Depression Diabetes mellitus type I (Chronic) Diabetic neuropathy Diabetic retinopathy Dialysis patient (Inactive) ESRD (end stage renal disease) Hemodialysis via permacath RIGHT CHEST M,W,F (Follows with Dr. Taylor Higgins; [facility]) Gastroparesis (Chronic) GERD (gastroesophageal reflux disease) Heart failure with reduced ejection fraction (Chronic) Hypertension Hypertensive emergency (Inactive) Hypertensive urgency (Inactive) Hypertensive urgency (Inactive) Kidney stones Surgical History H/O shoulder surgery RIGHT History of appendectomy History of cardiac cath 10/2018= no stents, no obstructive disease (at [facility]) History of esophagogastroduodenoscopy (EGD) History of hip surgery LEFT HIP ARTHROSCOPY History of lithotripsy History of open reduction and internal fixation (ORIF) procedure right hip Nausea and vomiting after administration of anesthetic agent Permanent central venous catheter in place Permacath S/P arteriovenous (AV) fistula creation left arm Social History Preferred Language: Malagasy Communication Ability: Effective Visual Impairment: No Limitations Hearing Ability: Normal Commissioning Engineer Required: No Beliefs That Will Affect Care: None marital status: Single Current Living Situation: Parent Current Living Situation Comment: CURRENT : [facility] current occupational status: unemployed Feels Safe at Home: Yes Smoking Status: Never smoker Tobacco Type: smokeless tobacco ; Second Hand Exposure: No (QUIT 02/2019) ; Hx Alcohol Use: No Hx Substance Use: No Childhood Exposure to Second-Hand Smoke: Yes Dental Care, Regularly: No Physical Activity Frequency: 1-2 Times per Week Seatbelt Use: always Sunscreen Use: No Review of Systems Constitutional: + anorexia; no fever, no chills, no body aches, no fatigue and no weakness Eyes: no eye pain, no photophobia and no worsening vision Ear, Nose, Mouth, Throat: no tinnitus, no dizziness, no epistaxis, no dry mouth, no sore throat and no dysphagia Respiratory: no cough, no dyspnea, no dyspnea on exertion, no hemoptysis and no pain on inspiration Cardiovascular: no chest pain, no dyspnea, no dyspnea at rest, no palpitations and no lightheadedness Gastrointestinal: + nausea, + vomiting and + diarrhea/loose stools; no abdominal pain, no bloating, no coffee ground emesis, no hematemesis, no excessive flatulence, no constipation, no blood in stools and no melena Genitourinary: no dysuria, no difficulty urinating and no urinary frequency Musculoskeletal: + back pain Integumentary: no rash Neurologic: + falls; no localized weakness, no paralysis, no loss of sensation and no headache(s) Physical Exam Constitutional: well developed and cooperative; no acute distress, + not appropriately hydrated and not in distress Eyes: PERRL, conjunctivae normal, anicteric sclerae normal visual garcia by confrontation ENMT: external ear and nose normal, oropharynx normal Ears: no hearing impairment Neck: trachea midline, no thyromegaly Respiratory: normal respiratory effort, lungs clear to auscultation Cardiovascular: RRR, no murmur, no edema Gastrointestinal (Abdomen): Inspection/Auscultation: abdomen normal to inspection and + hypoactive bowel sounds; abdomen not distended Percussion/Palpation: + abdomen tender (slight TTP in epigastric region ) and abdomen soft; no guarding and abdomen not rigid Musculoskeletal: no cyanosis or clubbing, extremities motor strength 5/5 Skin: no rashes, warm and dry Neurologic: PERRL, EOMI, accommodation nl, no face palsy, no dysarthria Psychiatric: A+Ox3, euthymic affect Results & Data Results & Data ([place]) Vital Signs (Past 12 Hours) Vital Signs Temp Pulse Pulse Resp BP BP Pulse Ox 11/10/19 20:04 84 L 11/10/19 20:01 86 18 228/94 H 94 11/10/19 19:46 99 H 22 209/103 H 100 11/10/19 18:00 75 18 98 11/10/19 16:24 36.7 C 87 20 180/79 H 100 Code Status & VTE Plan VTE Prophylaxis Plan VTE Prophylaxis will be ordered: Yes Supervising Physician Co-Signing Physician Notes Patient seen and examined, chart reviewed, case discussed with Dr. Mckinley and I agree with his assessment and plan as documented above. Briefly, patient is a 49yo C male with history of ESRD on HD, Type-I DM, HTN/CHF/CAD presenting with back pain following a fall. Also with nausea/vomiting/po intolerance similar to prior episodes of gastroparesis On exam patient is chronically ill in appearance HEENT - NC/AT, PERRL, EOMI, dry MM, neck supple Heart - +S1/S2, regular, 3/6 GOKUL at LSB Lungs - CTA Abd - +BS, soft, NT/ND Ext - AV fistula LUE with palpable thrill Back - tenderness over spinous process of L5/L6 Neuro - intact Labs and images reviewed Assessment/Plan - 49yo C male with Type I DM, CAD/HTN/ESRD on HD presenting with nausea/vomiting/po intolerance, elevated BP in the ER, recent fall -treat nausea with Zofran, Reglan and Ativan PRN -NPO for now, advance diet as tolerated -Resume home BP meds - patient did not take his medications yet today. Lopressor/Hydralazine PRN HTN urgency -Renal consult for routine HD -Remainder of plan as above PG Care Time/CCT Total # of Minutes Spent Total Time Spent with Patient: Total time spent is greater than 50% in coordination of care (as documented) at patient's floor/unit and/or counseling patient: Coding Level of Care Code 76770 OBS Care - Level 3 Diagnoses Fall W19.XXXA Hypertension I10 Hypertension type: unspecified ESRD on dialysis N18.6; Z99.2 Gastroparesis K31.84 Diabetes mellitus type I E10.69 Diabetes mellitus complication status: with other specified complication CAD (coronary artery disease) I25.10 Associated angina: without angina Coronary Disease-Associated Artery/Lesion type: [place] artery [place] vs. transplanted heart: [place] heart Depression F33.9 Active/Remission status: remission status unspecified Depression Type: major depressive disorder Major depression recurrence: recurrent Resident Activity Tracking Resident Involvement: Resident Care Provided Care Provided: Adult Hospital Medicine (1) Diabetes mellitus type I Diabetes mellitus complication status: with other specified complication Qualified Code(s): E10.69 - Type 1 diabetes mellitus with other specified complication (2) CAD (coronary artery disease) Associated angina: without angina Coronary Disease-Associated Artery/Lesion type: [place] artery [place] vs. transplanted heart: [place] heart Qualified Code(s): I25.10 - Atherosclerotic heart disease of [place] coronary artery without angina pectoris (3) Depression Active/Remission status: remission status unspecified Depression Type: major depressive disorder Major depression recurrence: recurrent Qualified Code(s): F33.9 - Major depressive disorder, recurrent, unspecified (4) Hypertension Hypertension type: unspecified Qualified Code(s): I10 - Essential (primary) hypertension
[2019-11-10] MEDS ORDERED: GLUCAGON FOR INJ 1 MG VIAL SQ PRN (22:10)
[2019-11-10] MEDS ORDERED: CARBOHYDRATES FOR HYPOGLYCEMIA PO PRN (22:10)
[2019-11-10] MEDS ORDERED: LORazepam 0.5 MG TAB PO PRN (22:10)
[2019-11-10] MEDS ORDERED: DEXTROSE 50% 50 ML SYRINGE IV PRN (22:10)
[2019-11-10] MEDS ORDERED: METOCLOPRAMIDE HCL INJ 5 MG/ML 2 ML VIAL IV SCH (22:10)
[2019-11-10] MEDS ORDERED: GLUCOSE 10 TABS/TUBE PO PRN (22:10)
[2019-11-10] MEDS ORDERED: LABETALOL HCL IV 5 MG/ML 20ML IV PRN (22:10)
[2019-11-10] MEDS ORDERED: ONDANSETRON INJ 2 MG/ML 2 ML VIAL IV PRN (22:10)
[2019-11-10] MEDS ORDERED: GLUCOSE 40% GEL 15 GM TUBE PO PRN (22:10)
[2019-11-10] MEDS: SODIUM CHLORIDE 0.9% 1000ML 1,000 ML IV SCH (22:19)
[2019-11-10] MEDS ORDERED: METOCLOPRAMIDE HCL INJ 5 MG/ML 2 ML VIAL IV PRN (22:30)
[2019-11-10] MEDS: carvediloL 25 MG TAB PO SCH (22:47)
[2019-11-10] MEDS: INSULIN HUMAN REGULAR SC SCH ×2 (22:47→23:06)
[2019-11-11] MEDS: INSULIN HUMAN REGULAR SC SCH ×3 (05:57→20:29)
[2019-11-11] MEDS: carvediloL 25 MG TAB PO SCH ×3 (08:13→20:29)
[2019-11-11] MEDS: LOSARTAN POTASSIUM 25 MG TAB PO SCH ×2 (08:13→13:30)
[2019-11-11] MEDS: SERTRALINE HCL 100 MG TABLET PO SCH ×2 (08:14→13:30)
[2019-11-11] MEDS: ATORVASTATIN 10 MG TAB PO SCH ×2 (08:14→13:30)
[2019-11-11] MEDS: BuPROPion SR 100 MG TABCR PO SCH ×2 (08:14→13:30)
[2019-11-11] MEDS: SODIUM CHLORIDE 0.9% 1000ML 1,000 ML IV SCH (08:16)
[2019-11-11] MEDS ORDERED: SODIUM CHLORIDE 0.9% 1000ML 1,000 ML IV PRN (09:38)
[2019-11-11] MEDS ORDERED: HEPARIN SOD (PORCINE) 1000 UNIT/ML 10 ML VIAL IV ONE (09:38)
--- NOTE | 2019-11-11 10:23 | Hospitalist Progress Note ---
Date of Service November 11, 2019 Assessment & Plan (1) Fall: Patient is a 49 year male with PMHx ESRD on dialysis, DM Type 1, CAD, Gastroparesis, and HTN who presents after having slipped in his shower the previous evening, also noting increased nausea and vomiting. Fall -Mechanical in nature, slipped in shower, no loss of consciousness no head injury -Lumbar XR in ED negative -Pain Mostly Resolved adding tylenol for pain control Nausea and Vomiting, likely 2/2 chronic Gastroparesis vs Viral Gastritis -White count 14.96 on admission, from demargination vs gastritis -NPO -Zofran 4mg q6h PRN -Reglan 5mg q6h PRN -Ativan 0.5mg as it may assist in nausea control -NSS 100 ml/hr x2 bags appears euvolemic currently - As patient is feeling better and bowel sounds are present will advance diet as tolerated. DM Type 1 -Last Hgb A1C 10/25/19 was 7.9 -Will hold home insulin regiment while inpatient -Will resume insulin regiment that was developed with pharmacy at last visit -Regular insulin q6h 2u for BSG <110 3u for BSG 110-150 4u for BSG >150 -Correction Factor of 30 with goal range 100-150 HTN continuing home -Losartan 75mg PO qAM -Coreg 25mg BID ESRD on Dialysis Nephrology consulted, normally MWF dialysis will likely need dialysis today nonemergent CAD -Continue Lipitor 10mg PO QAM -Continue Coreg 25mg BID Depression -Continue Sertraline 100mg PO -Continue Wellbutrin 100mg PO Dispo: Will step down to med surg FEN: Advancing diet as tolerated DVT: SCDs Code: Full (2) Hypertension: (3) ESRD on dialysis: (4) Gastroparesis: (5) Diabetes mellitus type I: (6) CAD (coronary artery disease): (7) Depression: Admission and Anticipated Discharge Date Admission Date: November 10, 2019 Supervising Physician Co-Signing Physician Notes Resident Physician Supervision Note: I independently interviewed and examined the patient and verified the julien history and physical, reviewed labs and image studies, discussed the case with the resident Dr. Núñez and agree with the findings and care plan. Subjective Mr. De Los Santos is feeling much better this morning. He denies any abdominal pain, nausea, vomiting at present. His previous back pain is now mostly resolved he calls it a 1 or 2 out of ten. He has no complaints at present and feels that his gastroparesis is similar to his many other similar episodes. He is due for dialysis today. Review of Systems Review of Systems: All systems reviewed & are unremarkable except as noted in HPI & below Physical Exam Constitutional: WD/WN, vitals as above + thin; no acute distress and not ill appearing Eyes: PERRL, conjunctivae normal, anicteric sclerae ENMT: external ear and nose normal, oropharynx normal Respiratory: normal respiratory effort, lungs clear to auscultation Cardiovascular: RRR, no murmur, no edema Heart Sounds: normal S1 and normal S2 Vessels: normal peripheral pulses Extremities: no edema Gastrointestinal (Abdomen): Inspection/Auscultation: abdomen not distended Percussion/Palpation: abdomen soft; abdomen nontender and no guarding Skin: no rashes, warm and dry av fistula left arm Results & Data Results & Data ([facility]) Vital Signs (Past 12 Hours) Vital Signs Temp Pulse Pulse Resp BP Pulse Ox 11/11/19 08:00 36.6 C 86 16 155/82 H 99 11/11/19 07:03 81 11/10/19 23:50 84 Resident Activity Tracking Resident Involvement: Resident Care Provided Care Provided: Adult Hospital Medicine (1) Diabetes mellitus type I Diabetes mellitus complication status: with other specified complication Qualified Code(s): E10.69 - Type 1 diabetes mellitus with other specified complication (2) CAD (coronary artery disease) Associated angina: without angina Coronary Disease-Associated Artery/Lesion type: [place] artery [place] vs. transplanted heart: [place] heart Qualified Code(s): I25.10 - Atherosclerotic heart disease of [place] coronary artery without angina pectoris (3) Depression Active/Remission status: remission status unspecified Depression Type: major depressive disorder Major depression recurrence: recurrent Qualified Code(s): F33.9 - Major depressive disorder, recurrent, unspecified (4) Hypertension Hypertension type: unspecified Qualified Code(s): I10 - Essential (primary) hypertension (5) Fall Encounter type: initial encounter Qualified Code(s): W19.XXXA - Unspecified fall, initial encounter
[2019-11-11] MEDS ORDERED: ACETAMINOPHEN 325 MG TAB PO PRN (10:41)
[2019-11-11] MEDS ORDERED: CALCIUM ACETATE 667 MG CAP/TAB PO PRN (12:42)
[2019-11-11] MEDS: CALCIUM ACETATE 667 MG CAP/TAB PO SCH ×2 (13:24→19:07)
--- NOTE | 2019-11-11 16:28 | Nephrology Consultation ---
Date of Consultation November 11, 2019 Assessment & Plan (1) ESRD on dialysis: Patient with ESRD on dialysis Thursday using a left upper arm AV fistula. Last dialysis was on Thursday which was uneventful. His labs are stable and no signs of volume overload. Will dialyze him today for 3-1/2 hours on a 4K bath and target UF of 2 L. (2) Fall: Patient status post fall likely mechanical. Workup for other causes of syncope is ongoing. Will avoid large UF during dialysis. Patient will need PT eval before discharge. (3) Hypertension: Blood pressure is controlled on current regimen. Will continue the same. History of Present Illness Reason for Consultation: ESRD and fall Attending Physician: Tessa Mckay MD History of Present Illness This is a 49-year-old male with history of type 1 diabetes for many years com plicated by gastroparesis, recurrent vomiting, coronary artery disease, hypertension, depression and ESRD on dialysis Thursday who was admitted on 11/10/2019 with the fall and vomiting. He apparently slid while using the bathroom and twisted his back. He still complains of back pain. Vomiting has subsided. No shortness of breath. His last dialysis was on Thursday which was uneventful. In the emergency room his blood pressure was high and required labetalol. Blood pressure is better today. Allergies Allergy/AdvReac Type Severity Reaction Status Date / Time shellfish derived Allergy Severe anaphylaxis Verified 11/10/19 16:52 codeine Allergy Intermediate Hives Verified 11/10/19 16:52 promethazine Allergy Intermediate itchy/hives Verified 11/10/19 16:52 Home Medications Home Medications Medication Instructions Recorded Confirmed Type [place] Caps 1 cap PO QAM 12/19/18 11/10/19 History sertraline 100 mg PO QAM 03/21/19 11/10/19 History bupropion HCl 100 mg tablet,12 hr 100 mg PO QAM ea 04/14/19 11/10/19 History sustained-release ondansetron 4 mg disintegrating 4 mg PO Q6H PRN 04/27/19 11/10/19 History tablet calcium acetate(phosphat bind) 667 mg PO DIRECTED MDD 7 05/31/19 11/10/19 History CAPSULES/DAILY famotidine 20 mg tablet 20 mg PO 3XWK #90 tab 06/10/19 11/10/19 Rx carvedilol 25 mg tablet 25 mg PO BID tab 06/16/19 11/10/19 History atorvastatin 10 mg PO QAM 06/21/19 11/10/19 History losartan 75 mg PO QAM 06/21/19 11/10/19 History metoclopramide HCl 5 mg PO ACHS 06/21/19 11/10/19 History BD Ultra-Fine Annalise Pen Needle 32 #800 ea NS 07/11/19 10/25/19 Rx gauge x " acetaminophen [Acetaminophen Extra 500 mg PO Q6H PRN MDD 3000 MG/DAY 07/13/19 11/10/19 History Strength] lorazepam 0.5 mg tablet 0.5 mg PO DAILY PRN tab 07/25/19 11/10/19 History insulin aspart U-100 [Novolog 0 unit SUBCUT UD PRN 09/26/19 11/10/19 History Flexpen U-100 Insulin] Basaglar KwikPen U-100 Insulin 15 units SQ QAM #0 ml 09/27/19 11/10/19 Rx Contour Next Test Strips #300 ea NS 10/26/19 Rx Patient History Medical History (Updated 11/10/19 @ 21:41 by Obie Lancaster DO) Acute hypokalemia Acute hyponatremia (Inactive) Anxiety AV fistula left arm CAD (coronary artery disease) mild, non-obstructive CAD per 10/2018 cardiac cath> [facility] Dehydration (Inactive) Depression Diabetes mellitus type I (Chronic) Diabetic neuropathy Diabetic retinopathy Dialysis patient (Inactive) ESRD (end stage renal disease) Hemodialysis via permacath RIGHT CHEST M,W,F (Follows with Dr. Taylor Higgins; [facility]) Gastroparesis (Chronic) GERD (gastroesophageal reflux disease) Heart failure with reduced ejection fraction (Chronic) Hypertension Hypertensive emergency (Inactive) Hypertensive urgency (Inactive) Hypertensive urgency (Inactive) Kidney stones Surgical History H/O shoulder surgery RIGHT History of appendectomy History of cardiac cath 10/2018= no stents, no obstructive disease (at [facility]) History of esophagogastroduodenoscopy (EGD) History of hip surgery LEFT HIP ARTHROSCOPY History of lithotripsy History of open reduction and internal fixation (ORIF) procedure right hip Nausea and vomiting after administration of anesthetic agent Permanent central venous catheter in place Permacath S/P arteriovenous (AV) fistula creation left arm Social History Preferred Language: Bhutanese Communication Ability: Effective Visual Impairment: No Limitations Hearing Ability: Normal 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 Required: No Beliefs That Will Affect Care: None marital status: Single Current Living Situation: Family Current Living Situation Comment: CURRENT : [facility] current occupational status: unemployed Other Information That Helps Us Care for You: No Feels Safe at Home: Yes Safety Concerns: Feels Safe At This Time Smoking Status: Unknown if ever smoked Hx Alcohol Use: No Hx Substance Use: No Childhood Exposure to Second-Hand Smoke: Yes Dental Care, Regularly: No Physical Activity Frequency: 1-2 Times per Week Seatbelt Use: always Sunscreen Use: No Review of Systems Review of Systems: All systems reviewed & are unremarkable except as noted in HPI & below Physical Exam Physical Exam: General exam: Appears comfortable, no acute distress HEENT: Pupils are equal and reactive to light Neck: No JVD, neck is supple trachea is midline Respiratory system: Clear breath sounds bilaterally. Gastrointestinal: Abdomen is soft, non distended, non tender, bowel sounds are present CVS: Regular rate and rhythm. No murmurs, rubs or gallops Musculoskeletal: No joint or muscle tenderness Extremities: Non tender, no edema, peripheral pulses are present Neuro: Oriented, no tremors, no focal neurological deficits Skin: No rashes Access: Left upper arm AV fistula with good bruit Results & Data Vital Signs (Past 12 Hours) Vital Signs Temp Pulse Pulse Pulse Resp BP BP 11/11/19 15:40 73 144/79 H 11/11/19 15:20 71 134/75 11/11/19 15:00 72 133/77 11/11/19 14:40 72 148/85 H 11/11/19 14:19 36.6 C 75 11/11/19 11:24 36.5 C 75 16 151/74 H 11/11/19 08:00 36.6 C 86 16 155/82 H 11/11/19 07:03 81 Pulse Ox 11/11/19 15:40 11/11/19 15:20 11/11/19 15:00 11/11/19 14:40 11/11/19 14:19 11/11/19 11:24 96 11/11/19 08:00 99 11/11/19 07:03 Laboratory Results 11/10/19 19:35 11/10/19 11/10/19 19:35 19:35 WBC 14.96 H RBC 4.05 L MCV 96.8 MCH 32.3 MCHC 33.4 RDW Std Deviation 46.4 H RDW Coeff of Kami 13.3 Plt Count 345 MPV 8.7 Albumin 4.1 (1) Fall Encounter type: initial encounter Qualified Code(s): W19.XXXA - Unspecified fall, initial encounter (2) Hypertension Hypertension type: unspecified Qualified Code(s): I10 - Essential (primary) hypertension
[2019-11-11] MEDS: HEPARIN SOD (PORCINE) 1000 UNIT/ML 10 ML VIAL IV SCH (16:32)
[2019-11-11] MEDS ORDERED: TRAMADOL HCL 50 MG TABLET PO PRN (18:54)
[2019-11-12] MEDS: INSULIN HUMAN REGULAR SC SCH ×3 (00:08→12:05)
--- NOTE | 2019-11-12 06:44 | Electrocardiogram Report ---
Test Reason : Blood Pressure : / mmHG Vent. Rate : 076 BPM Atrial Rate : 076 BPM P-R Int : 214 ms QRS Dur : 096 ms QT Int : 428 ms P-R-T Axes : 071 064 064 degrees QTc Int : 481 ms Sinus rhythm with 1st degree A-V block Prolonged QT Abnormal ECG When compared with ECG of 26-SEP-2019 01:18, [place] interval has increased ST elevation has replaced ST depression in Anterior leads Confirmed by Travon Ayala ([id number]) on 11/12/2019 6:44:38 AM Referred By: REFERRED SELF Confirmed By:Travon Ayala
[2019-11-12] MEDS: SERTRALINE HCL 100 MG TABLET PO SCH (08:01)
[2019-11-12] MEDS: BuPROPion SR 100 MG TABCR PO SCH (08:01)
[2019-11-12] MEDS: LOSARTAN POTASSIUM 25 MG TAB PO SCH (08:01)
[2019-11-12] MEDS: ATORVASTATIN 10 MG TAB PO SCH (08:02)
[2019-11-12] MEDS: carvediloL 25 MG TAB PO SCH (08:02)
[2019-11-12] MEDS: CALCIUM ACETATE 667 MG CAP/TAB PO SCH ×2 (08:02→12:05)
[2019-11-12] MEDS ORDERED: NEPHROCAPS PO SCH (09:00)
--- NOTE | 2019-11-12 11:37 | Discharge Summary ---
Date of Service November 12, 2019 Admission HPI Per Admitting Provider Patient is a 49 year male with PMHx ESRD on dialysis, DM Type 1, CAD, Gastroparesis, and HTN who presents after having slipped in his shower the previous evening, also noting increased nausea and vomiting. Patient states that he was showering last night after having had dialysis when he had a "twisting motion" which caused him to strain his lower back. He states that he has a history of fractures in his T11-T12. He denies having fallen, just twisting and straining his back. He notes that since then he has had increasing nausea and has vomited at least 10x, each producing a dark brown mucoid like emesis. He denies any coffee ground emesis or jahaira blood. He notes that his last bowel movement was loose stools yesterday without any dark tarry or bloody stools as well. He notes that he has tried eating applesauce, but that he vomits it back 15 or so minutes after ingestion. He has not taken any of his home medications today except for tylenol which has not helped his symptoms. He denies any tobacco use, states he quit drinking 3-4 years ago and had been having "a few beers a week," and denies any drug use. Currently he notes that his nausea is better controlled. He is not complaining of low back pain. He does not have any chest pain, SOB, abdominal pain, or dizziness. Principal Diagnosis Gastroparesis Discharge Exam Constitutional WD/WN, vitals as above Eyes PERRL, conjunctivae normal, anicteric sclerae ENMT external ear and nose normal, oropharynx normal Neck normal visual inspection Respiratory normal respiratory effort, lungs clear to auscultation Cardiovascular Rate/Rhythm: regular rate and regular rhythm Heart Sounds: normal S1 and normal S2; no gallop, no murmur and no cardiac rub Vessels: no JVD Extremities: no edema Gastrointestinal (Abdomen) normal bowel sounds, soft, nontender, no hepatosplenomegaly Skin no rashes, warm and dry Lymphatic no cervical or axillary lymphadenopathy Discharge Data Allergies Allergy/AdvReac Type Severity Reaction Status Date / Time shellfish derived Allergy Severe anaphylaxis Verified 11/10/19 16:52 codeine Allergy Intermediate Hives Verified 11/10/19 16:52 promethazine Allergy Intermediate itchy/hives Verified 06/04/20 16:52 Consultations 11/10/19 20:22 ED Decision to Admit Stat 11/10/19 22:10 Consult Nephrology Routine Hospital Course (1) Fall: Jorge Alberto De Los Santos is a 49w/o M with PMH significant for ESRD on dialysis, DM Type 1, CAD, Gastroparesis, and HTN; who presented to the hospital after having slipped in his shower the previous evening, while also noting increased nausea and vomiting. Fall: - Mechanical in nature, slipped in shower, no loss of consciousness, no head injury - Lumbar XR in ED negative Nausea and Vomiting, likely 2/2 acute worsening from chronic Gastroparesis: - WBC 14.96 on admission - resolved prior to discharge; tolerating oral intake without nausea/vomiting DM Type 1: - Last Hgb A1C 10/25/19 was 7.9 - resume home insulin regimen HTN - continue Losartan 75mg PO qAM - continue Coreg 25mg BID CAD - continue Lipitor 10mg PO QAM - continue Coreg 25mg BID Depression - continue Sertraline 100mg PO - continue Wellbutrin 100mg PO Total Time Total Time Spent Total Time Spent (In Minutes): 30 Discharge Plan Discharge Items Patient Disposition: Home - Self-Care Reason For Visit: FALL,GASTROPARESIS Discharge Diagnosis: Gastroparesis Activity: Per Instructions section Non-emergency contact: Primary Care Provider Call non-emergency contact if: your symptoms worsen, your pain is worsening and your temperature is above 101 Follow-up/Referrals: Abbi Ames MD [Primary Care Provider] - Diet: Carb Count or DM1 Addtl Attending Provider Instructions: You were seen and admitted following a mechanical fall in the shower, with newly increased nausea and vomiting. During this admission, it was noted that your increased nausea and vomiting were likely from an exacerbation of your ga stroparesis, and after resting your bowels for a short period of time, you had significant improvement in your symptoms. Now that you have improved you are being discharged home on your regular medications without change. Pending Studies at Discharge: No Stand-Alone Forms: My [employer], Smoking Cessation Medications and DC Order Prescriptions: Continued bupropion HCl 100 mg tablet sustained-release 12 hr 100 mg PO QAM RF: 0 famotidine 20 mg tablet 20 mg PO 3XWK Qty: 90 RF: 1 (DME) pen needle, diabetic [BD Ultra-Fine Annalise Pen Needle] 32 gauge x 5/32" needle See Rx Instructions .ROUTE .MEDSUPPLY Qty: 800 RF: 3 (DME) Contour Next Test Strips Strip See Dose Instructions .ROUTE .MEDSUPPLY Qty: 300 RF: 3 carvedilol 25 mg tablet 25 mg PO BID RF: 0 ondansetron 4 mg tablet,disintegrating 4 mg PO Q6H PRN (Reason: Nausea And Vomiting) RF: 0 lorazepam 0.5 mg tablet 0.5 mg PO DAILY PRN (Reason: Anxiety) RF: 0 losartan 50 mg tablet 75 mg PO QAM RF: 0 atorvastatin 10 mg tablet 10 mg PO QAM RF: 0 metoclopramide HCl 5 mg tablet 5 mg PO ACHS RF: 0 acetaminophen [Acetaminophen Extra Strength] 500 mg Tablet 500 mg PO Q6H MDD 3000 MG/DAY PRN (Reason: Fever Or Pain) RF: 0 insulin aspart U-100 [Novolog Flexpen U-100 Insulin] 100 unit/mL (3 mL) ins ulin pen 0 unit SUBCUT UD PRN (Reason: sliding scale) RF: 0 Basaglar KwikPen U-100 Insulin 100 unit/mL (3 mL) insulin pen 15 units SQ QAM Qty: 0 RF: 0 [place] Caps 1 mg capsule 1 cap PO QAM RF: 0 sertraline 100 mg tablet 100 mg PO QAM RF: 0 calcium acetate(phosphat bind) 667 mg capsule 667 mg PO DIRECTED MDD 7 CAPSULES/DAILY RF: 0 Discharge Orders: Discharge Order (Routine); Ordered 11/12/19 Ordered By: Adelso Hardwick Admission Data Admit Date/Time: 11/10/19 21:03 Attending Provider: Tessa Mckay Admit Provider: Marielos Cervantes Primary Care Provider: Abbi Ames V. Other Providers: Marielos Cervantes ; Joseph Celaya. Other Interventions: Discharge Summary Assessment (RN) Last Done: 11/12/19 11:58 Supervising Physician Co-Signing Physician Notes Resident Physician Supervision Note: I independently interviewed and examined the patient and verified the julien history and physical, reviewed labs and image studies, discussed the case with the resident Dr. Hardwick and agree with the findings and care plan. Resident Activity Tracking Resident Involvement: Resident Care Provided Care Provided: Adult Hospital Medicine
[2019-11-12] MEDS ORDERED: ONDANSETRON 4 MG OD TAB PO STA (12:56)
--- NOTE | 2019-11-12 16:13 | Nephrology Progress Note ---
Date of Service November 12, 2019 Assessment & Plan (1) ESRD on dialysis: Patient with ESRD on dialysis Thursday using a left upper arm AV fistula. Last outpt dialysis was on Thursday which was uneventful. He had HD yesterday. His labs are stable and no signs of volume overload. No indication for HD today. Patient can go home from renal standpoint (2) Fall: Patient status post fall likely mechanical. Workup for other causes of syncope is unrevealing. Advised to be careful when ambulating (3) Hypertension: Blood pressure is controlled on current regimen. Will continue the same. Admission and Anticipated Discharge Date Admission Date: November 10, 2019 Subjective Patient seen in morning during rounds. No nausea or vomiting today. had HD yesterday. No SOB Review of Systems Review of Systems: All systems reviewed & are unremarkable except as noted in HPI & below Physical Exam Physical Exam: General exam: Appears comfortable, no acute distress HEENT: Pupils are equal and reactive to light Neck: No JVD, neck is supple trachea is midline Respiratory system: Clear breath sounds bilaterally. Gastrointestinal: Abdomen is soft, non distended, non tender, bowel sounds are present CVS: Regular rate and rhythm. No murmurs, rubs or gallops Musculoskeletal: No joint or muscle tenderness Extremities: Non tender, no edema, peripheral pulses are present Neuro: Oriented, no tremors, no focal neurological deficits Skin: No rashes Access: AVF, good bruit Results & Data ([facility]) Vital Signs (Past 12 Hours) Vital Signs Temp Pulse Pulse Pulse Resp BP Pulse Ox 11/12/19 11:58 36.4 C L 82 67 74 20 147/80 H 98 11/12/19 07:30 36.4 C L 67 20 147/80 H 98 Laboratory Results 11/10/19 19:35 (1) Fall Encounter type: initial encounter Qualified Code(s): W19.XXXA - Unspecified fall, initial encounter (2) Hypertension Hypertension type: unspecified Qualified Code(s): I10 - Essential (primary) hypertension
== END 2019-11-12 13:30 | disposition home or self-care (01) ==
LOC: ED 16:21 → 2N 16:21 → SUATTDRO 21:03 → 2N 21:51

== ENCOUNTER 2019-12-31 23:43 | Observation (INO) ==
[2020-01-01] MEDS ORDERED: METOCLOPRAMIDE HCL INJ 5 MG/ML 2 ML VIAL IV PRN (02:46)
[2020-01-01] MEDS ORDERED: SODIUM CHLORIDE 0.9% 1000ML 1,000 ML IV SCH (03:00)
--- NOTE | 2020-01-01 03:00 | History & Physical Report ---
Date of Service January 01, 2020 Assessment & Plan (1) Nausea & vomitin-year-old male with a past medical history of type 1 diabetes mellitus, gastroparesis, hypertension, end-stage renal disease with dialysis Thursday, coronary artery disease, depression presents as a direct admission from outside hospital with concerns of nausea and vomiting and diarrhea. N/V/D Secondary to chronic ongoing gastroparesis versus viral gastroenteritis in setting of hemodialysis -Will repeat gastric occult here. Positive at OSH. H/H Stable White blood cell 14.10 likely from demargination Will make patient n.p.o. PRN Zofran and Compazine for any nausea IVF NSS@100mls/hr EKG repeated upon admission checking for QT interval Hyponatremia/hypokalemia Sodium 133, potassium 3.4 on admission In setting of large volume emesis NSS as above. Will order additional K riders Daily BMP and replete electrolytes as necessary Elevated troponin at OSH Admit to telemetry Patient with troponin 287 at outside hospital [employer]. In setting of end-stage renal disease and a large volume depletion secondary to emesis. Likely error due to high sensitivity troponin labs at OSH Low concern for ACS. Patient denies any cardiac symptoms. Repeat troponin here on admission negative Repeat EKG on admission Defer cardiology consult at present Type 1 diabetes mellitus Last hemoglobin A1c October 2019 7.9 Hold home insulin regimen and place on SSI HTN -Hydralazine 10mg IV PRN q4h for Sys >190, Zaidi >110 -continue patients home PO medications once tolerating PO: Losartan 75mg PO qAM, Coreg 25mg BID ESRD on Dialysis -Has dialysis on MWF with left upper extremity AV fistula. Last received HD on Thu -Cr on admission 7.46. Baseline somewhere around ~5 it appears looking at previous labs NSS@100 -Appreciate nephrology consult to help manage HD needs moving forward CAD -Continue Lipitor 10mg PO QAM, Coreg 25mg BID once able Depression -Continue Sertraline 100mg PO, Wellbutrin 100mg PO once able FEN/GI: NSS 100ml/hr. NPO DVT prophylaxis: SCDs Full Code Dispo: Telemetry upon direct admission. Likely can be downgraded off telemetry moving forward with low suspicion for anything cardiac in etiology. Admission and Anticipated Discharge Date Admission Date: January 01, 2020 History of Present Illness Chief Complaint: n/v Primary Care Provider: Abbi Ames MD 49-year-old male with a past medical history of type 1 diabetes mellitus, gastroparesis, hypertension, end-stage renal disease with dialysis Thursday, coronary artery disease, depression presents as a direct admission from outside hospital with concerns of nausea and vomiting and diarrhea that has been going on for 1 day. Patient is well-known to hospitalist service with multiple admissions for the same. Patient notes that he had dialysis on Thursday and felt okay afterwards. Later on in the evening he started to feel nauseated with one small emesis. Patient went to bed and was able to sleep okay. Patient woke up during the night with ongoing nausea and vomiting along with diarrhea this time. Patient was able to tolerate is home p.o. medications without issue. Patient presented to [facility] with the symptoms. He was noted to have Gastroccult positive emesis with significant hypertension with systolic in the 200s. Patient states he has no history of GI bleeding and is not on any blood thinners. Patient was noted to have a significant troponin 287 and suspected to have an atypical acute coronary syndrome. EKG showed normal sinus rhythm and was not consistent with a STEMI. Decision was made to transfer patient to [facility] given lack of cardiac catheterization, dialysis, GI availability at outside hospital. Upon my examination patient notes ongoing nausea and vomiting. History limited 2/2 pt participation. Patient otherwise denies any fevers, chills, chest pain, shortness of breath, palpitations, syncope or near syncope, edema, abdominal pain, urinary symptoms, sick contacts or recent travel. Patient with no other acute concerns or complaints. Pertinent labs from outside hospital: Sodium 129, chloride 86, creatinine 6.9, BUN 30, glucose 156, troponin 287 ER course from outside hospital: IV Compazine 10 mg, IV Zofran 4 mg Allergies Allergy/AdvReac Type Severity Reaction Status Date / Time shellfish derived Allergy Severe anaphylaxis Verified 12/20/19 10:07 codeine Allergy Intermediate Hives Verified 12/20/19 10:07 promethazine Allergy Intermediate itchy/hives Verified 12/20/19 10:07 Home Medications Home Medications Medication Instructions Recorded Confirmed Type [place] Caps 1 cap PO QAM 12/19/18 12/20/19 History sertraline 100 mg PO QAM 03/21/19 12/20/19 History bupropion HCl 100 mg tablet,12 hr 100 mg PO QAM ea 04/14/19 12/20/19 History sustained-release ondansetron 4 mg disintegrating 4 mg PO Q6H PRN 04/27/19 12/20/19 History tablet calcium acetate(phosphat bind) 667 mg PO DIRECTED MDD 7 05/31/19 12/20/19 History CAPSULES/DAILY famotidine 20 mg tablet 20 mg PO 3XWK #90 tab 06/10/19 12/20/19 Rx carvedilol 25 mg tablet 25 mg PO BID tab 06/16/19 12/20/19 History atorvastatin 10 mg PO QAM 06/21/19 12/20/19 History losartan 75 mg PO QAM 06/21/19 12/20/19 History metoclopramide HCl 5 mg PO ACHS 06/21/19 12/20/19 History acetaminophen [Acetaminophen Extra 500 mg PO Q6H PRN MDD 3000 MG/DAY 07/13/19 12/20/19 History Strength] lorazepam 0.5 mg tablet 0.5 mg PO DAILY PRN tab 07/25/19 12/20/19 History Contour Next Test Strips #300 ea NS 10/26/19 11/16/19 Rx prochlorperazine maleate 5 mg 5 mg PO Q8H PRN #10 tab 11/12/19 11/16/19 Rx tablet insulin aspart U-100 100 unit/mL See Rx Instructions SUBCUT 11/24/19 12/20/19 Rx (3 mL) subcutaneous pen .COMPLEX PRN #15 ml insulin glargine 100 unit/mL (3 14 units SQ QAM ml 12/20/19 History mL) subcutaneous pen pen needle, diabetic 32 gauge x ea 12/20/19 History " Past Med/Surg History Medical History (Updated 01/01/20 @ 03:20 by Joseph Angel, ) Acute hypokalemia Acute hyponatremia (Inactive) Anxiety AV fistula left arm CAD (coronary artery disease) mild, non-obstructive CAD per 10/2018 cardiac cath> [facility] Dehydration (Inactive) Depression Diabetes mellitus type I (Chronic) Diabetic neuropathy Diabetic retinopathy Dialysis patient (Inactive) ESRD (end stage renal disease) Hemodialysis via permacath RIGHT CHEST M,W,F (Follows with Dr. Vazquez And ivy; [facility]/[place]) Fall (Inactive) Gastroparesis (Chronic) GERD (gastroesophageal reflux disease) Heart failure with reduced ejection fraction (Chronic) Hypertension Hypertensive emergency (Inactive) Hypertensive urgency (Inactive) Hypertensive urgency (Inactive) Kidney stones Nausea & vomiting (Inactive) Vomiting (Inactive) Surgical History H/O shoulder surgery RIGHT History of appendectomy History of cardiac cath 10/2018= no stents, no obstructive disease (at [facility]) History of esophagogastroduodenoscopy (EGD) History of hip surgery LEFT HIP ARTHROSCOPY History of lithotripsy History of open reduction and internal fixation (ORIF) procedure right hip Nausea and vomiting after administration of anesthetic agent Permanent central venous catheter in place Permacath S/P arteriovenous (AV) fistula creation left arm Social History Smoking Status: Unknown if ever smoked Second Hand Exposure: No (QUIT 02/2019); Hx Alcohol Use: No Hx Substance Use: No Preferred Language: Latvian Communication Ability: Effective Visual Impairment: No Limitations Hearing Ability: Normal Guard Supervisor Required: No Beliefs That Will Affect Care: None marital status: Single Current Living Situation: Parent Current Living Situation Comment: CURRENT : [facility] current occupational status: unemployed How many Children do You have: 2 Feels Safe at Home: Yes Safety Concerns: Feels Safe At This Time Childhood Exposure to Second-Hand Smoke: Yes Dental Care, Regularly: No Physical Activity Frequency: 1-2 Times per Week Seatbelt Use: always Sunscreen Use: No Review of Systems Review of Systems: All systems reviewed & are unremarkable except as noted in HPI & below Physical Exam Constitutional: + thin; + not appropriately hydrated Eyes: PERRL, conjunctivae normal, anicteric sclerae ENMT: external ear and nose normal, oropharynx normal Respiratory: normal respiratory effort, lungs clear to auscultation Cardiovascular: RRR, no murmur, no edema Gastrointestinal (Abdomen): normal bowel sounds, soft, nontender, no hepatosplenomegaly Inspection/Auscultation: abdomen not distended Percussion/Palpation: no guarding Skin: no rashes, warm and dry Psychiatric: A+Ox3, euthymic affect Code Status & VTE Plan Code Status Full Supervising Physician Co-Signing Physician Notes Attending addendum: I have physically seen this patient, have supervised the medical residents activities, and agree with the H&P unless as otherwise noted. Assessment and Plan: Elevated troponin- The patient will be admitted to telemetry for serial cardiac enzymes, serial EKG's, cardiac rhythm monitoring and a 2-D echocardiogram with Dopplers. Accepted in transfer from [facility] emergency department where his troponin was reported elevated at 287, with normal range of <12. Patient without any chest pain or shortness of breath. Primary symptoms are that of his usual nausea and vomiting. Repeating stat labs: CBC with differential, chemistry profile, magnesium, phosphorus, troponin, PT/PTT/INR. ESRD on HD- Consult nephrology Nausea/vomiting/diarrhea- Supportive treatment. Remaining orders and notations as noted Resident Activity Tracking Resident Involvement: Resident Care Provided Care Provided: Adult Hospital Medicine
[2020-01-01 03:04] LABS: Hematocrit (blood only) 40.2 % (42-52); Hemoglobin 13.3 g/dL (14.0-18.0); Immature Granulocytes # (auto) 0.05 K/uL (0.00-0.02); Immature Granulocytes % (auto) 0.4 %; Lymphocytes # (auto) 0.94 K/uL (1.2-3.4); Lymphocytes % (auto) 6.7 %; Mean Corpuscular Hemoglobin 32.8 pg (25-34); Mean Corpuscular Hgb Conc 33.1 g/dL (32-36); Mean Platelet Volume 9.1 fL (7.4-10.4); Monocytes # (auto) 0.37 K/uL (0.11-0.59); Monocytes % (auto) 2.6 %; Neutrophils # (auto) 12.74 K/uL (1.4-6.5); Neutrophils % (auto) 90.3 %; Platelet Count 439 K/uL (130-400); RDW Coefficient of Variation 12.9 % (11.5-14.5); RDW Standard Deviation 46.6 fL (36.4-46.3); Red Blood Count 4.06 M/uL (4.7-6.1)
[2020-01-01] MEDS ORDERED: HydrALAZINE HCL 20 MG/ML VIAL IV STA (03:04)
[2020-01-01] MEDS ORDERED: GLUCAGON FOR INJ 1 MG VIAL SQ PRN (03:31)
[2020-01-01] MEDS ORDERED: CARBOHYDRATES FOR HYPOGLYCEMIA PO PRN (03:31)
[2020-01-01] MEDS ORDERED: GLUCOSE 10 TABS/TUBE PO PRN (03:31)
[2020-01-01] MEDS ORDERED: DEXTROSE 50% 50 ML SYRINGE IV PRN (03:31)
[2020-01-01] MEDS ORDERED: HydrALAZINE HCL 20 MG/ML VIAL IV PRN (03:31)
[2020-01-01] MEDS: ONDANSETRON INJ 2 MG/ML 2 ML VIAL IV PRN ×2 (03:31→09:13)
[2020-01-01] MEDS ORDERED: GLUCOSE 40% GEL 15 GM TUBE PO PRN (03:31)
[2020-01-01 03:34] LABS: BUN Creatinine Ratio 5.3 (10-20); Blood Urea Nitrogen 39 mg/dl (7-18); Calcium 9.2 mg/dl (8.5-10.1); Carbon Dioxide 21 mmol/L (21-32); Chloride 94 mmol/L (98-107); Creatinine Clr Calc Pharmacy 9.8 ml/min; Est GFR (Non-African American) 7.7; Glucose 257 mg/dl (70-99); Potassium 3.4 mmol/L (3.5-5.1); Sodium 133 mmol/L (136-145); Troponin I < 0.015 ng/ml (0-0.045)
[2020-01-01] MEDS: POTASSIUM CHLORIDE / WTR 10 MEQ/100 ML PLCT IV SCH ×3 (04:08→06:17)
[2020-01-01 06:42] LABS: Gastric Occult Blood Positive (Negative); pH Gastric Fluid 2
[2020-01-01] MEDS: INSULIN ASPART 100 UNITS/ML 3 ML PEN SC SCH ×2 (08:12→11:48)
[2020-01-01] MEDS ORDERED: INSULIN GLARGINE SOLOSTAR 100 UNITS/ML 3 ML PEN SC SCH (09:00)
--- NOTE | 2020-01-01 09:08 | Nephrology Consultation ---
Date of Consultation January 01, 2020 Assessment & Plan (1) ESRD on dialysis: Patient with ESRD on dialysis Thursday. Last dialysis was on Thursday outpatient. Electrolytes acceptable. No signs of volume overload. -We will dialyze him tomorrow for 3-1/2 hours on a 3K bath and no UF. (2) Nausea & vomiting: Patient with vomiting likely due to gastroparesis and possibly gastroenteritis given diarrhea. Work-up for infectious causes of diarrhea is ongoing. Continue conservative management. -Recommend stopping IV fluids to avoid volume overload (3) Hypertension: Blood pressure was very high on admission with systolic in the 200s. Recommend restarting Coreg 25 mg twice daily. History of Present Illness Reason for Consultation: ESRD complicated by vomiting Requesting Physician: Herminia Krooma DO Attending Physician: Herminia Koroma DO History of Present Illness This is 49-year-old male with history of type 1 diabetes complicated by gastroparesis, hypertension, depression and ESRD on dialysis Thursday who was admitted on 12/31/2019 with vomiting. He has been having nausea after dialysis for the past couple of treatments. His last dialysis was on Thursday which was uneventful. He developed nausea Thursday evening and progressed into vomiting. Patient also reports having diarrhea. He now feels better denies any shortness of breath or vomiting this morning. He is getting IV fluids. He is dialyzed using a left upper arm AV fistula. His blood pressure is controlled. Allergies Allergy/AdvReac Type Severity Reaction Status Date / Time shellfish derived Allergy Severe anaphylaxis Verified 12/20/19 10:07 codeine Allergy Intermediate Hives Verified 12/20/19 10:07 promethazine Allergy Intermediate itchy/hives Verified 12/20/19 10:07 Home Medications Home Medications Medication Instructions Recorded Confirmed Type Chris Caps 1 cap PO QAM 12/19/18 12/20/19 History sertraline 100 mg PO QAM 03/21/19 12/20/19 History bupropion HCl 100 mg tablet,12 hr 100 mg PO QAM ea 04/14/19 12/20/19 History sustained-release ondansetron 4 mg disintegrating 4 mg PO Q6H PRN 04/27/19 12/20/19 History tablet calcium acetate(phosphat bind) 667 mg PO DIRECTED MDD 7 05/31/19 12/20/19 History CAPSULES/DAILY famotidine 20 mg tablet 20 mg PO 3XWK #90 tab 06/10/19 12/20/19 Rx carvedilol 25 mg tablet 25 mg PO BID tab 06/16/19 12/20/19 History atorvastatin 10 mg PO QAM 06/21/19 12/20/19 History losartan 75 mg PO QAM 06/21/19 12/20/19 History metoclopramide HCl 5 mg PO ACHS 06/21/19 12/20/19 History acetaminophen [Acetaminophen Extra 500 mg PO Q6H PRN MDD 3000 MG/DAY 07/13/19 12/20/19 History Strength] lorazepam 0.5 mg tablet 0.5 mg PO DAILY PRN tab 07/25/19 12/20/19 History Contour Next Test Strips #300 ea NS 10/26/19 11/16/19 Rx prochlorperazine maleate 5 mg 5 mg PO Q8H PRN #10 tab 11/12/19 11/16/19 Rx tablet insulin aspart U-100 100 unit/mL See Rx Instructions SUBCUT 11/24/19 12/20/19 Rx (3 mL) subcutaneous pen .COMPLEX PRN #15 ml insulin glargine 100 unit/mL (3 14 units SQ QAM ml 12/20/19 History mL) subcutaneous pen pen needle, diabetic 32 gauge x ea 12/20/19 History " Patient History Medical History (Updated 01/01/20 @ 03:20 by Joseph Angel DO) Acute hypokalemia Acute hyponatremia (Inactive) Anxiety AV fistula left arm CAD (coronary artery disease) mild, non-obstructive CAD per 10/2018 cardiac cath> [facility] Dehydration (Inactive) Depression Diabetes mellitus type I (Chronic) Diabetic neuropathy Diabetic retinopathy Dialysis patient (Inactive) ESRD (end stage renal disease) Hemodialysis via permacath RIGHT CHEST M,W,F (Follows with Dr. Taylor Higgins; [facility]/[place]) Fall (Inactive) Gastroparesis (Chronic) GERD (gastroesophageal reflux disease) Heart failure with reduced ejection fraction (Chronic) Hypertension Hypertensive emergency (Inactive) Hypertensive urgency (Inactive) Hypertensive urgency (Inactive) Kidney stones Nausea & vomiting (Inactive) Vomiting (Inactive) Surgical History H/O shoulder surgery RIGHT History of appendectomy History of cardiac cath 10/2018= no stents, no obstructive disease (at [facility]) History of esophagogastroduodenoscopy (EGD) History of hip surgery LEFT HIP ARTHROSCOPY History of lithotripsy History of open reduction and internal fixation (ORIF) procedure right hip Nausea and vomiting after administration of anesthetic agent Permanent central venous catheter in place Permacath S/P arteriovenous (AV) fistula creation left arm Social History Smoking Status: Unknown if ever smoked Second Hand Exposure: No (QUIT 02/2019); Hx Alcohol Use: No Hx Substance Use: No Preferred Language: Slovak Communication Ability: Effective Visual Impairment: No Limitations Hearing Ability: Normal 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 Required: No Beliefs That Will Affect Care: None marital status: Single Current Living Situation: Parent Current Living Situation Comment: CURRENT : [facility] current occupational status: unemployed How many Children do You have: 2 Feels Safe at Home: Yes Safety Concerns: Feels Safe At This Time Childhood Exposure to Second-Hand Smoke: Yes Dental Care, Regularly: No Physical Activity Frequency: 1-2 Times per Week Seatbelt Use: always Sunscreen Use: No Review of Systems Review of Systems: All systems reviewed & are unremarkable except as noted in HPI & below Physical Exam Physical Exam: General exam: Appears comfortable, no acute distress HEENT: Pupils are equal and reactive to light Neck: No JVD, neck is supple trachea is midline Respiratory system: Clear breath sounds bilaterally. Gastrointestinal: Abdomen is soft, non distended, non tender, bowel sounds are present CVS: Regular rate and rhythm. No murmurs, rubs or gallops Musculoskeletal: No joint or muscle tenderness Extremities: Non tender, no edema, peripheral pulses are present Neuro: Oriented, no tremors, no focal neurological deficits Skin: No rashes Access: Left upper arm AV fistula with good bruit Results & Data Vital Signs (Past 12 Hours) Vital Signs Temp Pulse Pulse Resp BP BP Pulse Ox 01/01/20 08:12 36.6 C 92 H 18 135/49 L 97 01/01/20 07:33 95 H 01/01/20 04:05 36.8 C 95 H 18 184/79 H 99 01/01/20 02:15 36.5 C 96 H 20 237/119 H 100 Laboratory Results 01/01/20 02:53 01/01/20 02:53 WBC 14.10 H RBC 4.06 L MCV 99.0 MCH 32.8 MCHC 33.1 RDW Std Deviation 46.6 H RDW Coeff of Kami 12.9 Plt Count 439 H MPV 9.1 (1) Hypertension Hypertension type: unspecified Qualified Code(s): I10 - Essential (primary) hypertension
[2020-01-01] MEDS ORDERED: carvediloL 25 MG TAB PO ONE (10:00)
[2020-01-01] MEDS: PROCHLORPERAZINE 5 MG in SYRINGE 4 ML IV PRN ×2 (13:29→22:33)
--- NOTE | 2020-01-01 16:27 | Hospitalist Progress Note ---
Date of Service January 01, 2020 Assessment & Plan (1) Nausea & vomitin-year-old male with a past medical history of type 1 diabetes mellitus, gastroparesis, hypertension, end-stage renal disease with dialysis Thursday, coronary artery disease, depression presents as a direct admission from outside hospital with concerns of nausea and vomiting and diarrhea. N/V/D Secondary to chronic ongoing gastroparesis versus viral gastroenteritis in setting of hemodialysis -Will repeat gastric occult here, positive for blood. Positive at OSH as well. Hb continues to be stable White blood cell 14.10 likely from demargination. PRN Zofran and Compazine for any nausea IVF, sips Hyponatremia/hypokalemia Sodium 133, potassium 3.4 on admission In setting of large volume emesis NSS as above Daily BMP and replete electrolytes as necessary Elevated troponin at OSH Patient with troponin 287 at outside hospital DRAFTER (CAD) ELECTRONIC. In setting of end-stage renal disease and a large volume depletion secondary to emesis. Likely error due to high sensitivity troponin labs at OSH Low concern for ACS. Patient denies any cardiac symptoms. Repeat troponin here on admission negative Repeat EKG on admission Defer cardiology consult at present Type 1 diabetes mellitus Last hemoglobin A1c October 2019 7.9 Pt is well known to pharmacology for DM management from multiple prior admissions HTN -Hydralazine 10mg IV PRN q4h for Sys >190, Zaidi >110 -continue patients home PO medications once tolerating PO: Losartan 75mg PO qAM, Coreg 25mg BID ESRD on Dialysis -Has dialysis on MWF with left upper extremity AV fistula. Last received HD on Thu -Cr on admission 7.46. Baseline somewhere around ~5 it appears looking at previous labs -Appreciate nephrology consult to help manage HD needs moving forward CAD -Continue Lipitor 10mg PO QAM, Coreg 25mg BID once able Depression -Continue Sertraline 100mg PO, Wellbutrin 100mg PO once able DVT prophylaxis: SCDs Full Code Dispo: Telemetry upon direct admission. Likely can be downgraded off telemetry moving forward with low suspicion for anything cardiac in etiology. Admission and Anticipated Discharge Date Admission Date: January 01, 2020 Subjective Called by nursing early as pt was asking for dragan brandon. He had no further n/v at that time. Pt seen after starting sips of dragan brandon only and pt was resting comfortably in bed, sleeping. He stated he was feeling better overall. No further n/v/d. No abd pain. No issues with dragan brandon. Called by nursing a few hours later as pt was with nausea and requesting compazine. No emesis. Pt denies fever, SOB, chest pain, LE pain or swelling. Review of Systems Review of Systems: Pertinent positives and negatives reviewed in HPI--all others negative Physical Exam Constitutional: WD/WN, vitals as above Eyes: normal visual garcia by confrontation and + anicteric sclerae Neck: normal visual inspection and trachea midline Respiratory: normal respiratory effort, lungs clear to auscultation Cardiovascular: Rate/Rhythm: regular rate and regular rhythm Gastrointestinal (Abdomen): Inspection/Auscultation: abdomen not distended Percussion/Palpation: abdomen soft; abdomen nontender Musculoskeletal: Head/Neck/Chest: normocephalic and head atraumatic negative for edema, peripheral pulses intact Skin: no rashes, warm and dry Neurologic: awake; not confused Speech / Cognition: normal speech Psychiatric: A+Ox3, euthymic affect Results & Data Results & Data ([facility]) Vital Signs (Past 12 Hours) Vital Signs Temp Pulse Pulse Resp BP BP Pulse Ox 01/01/20 14:55 80 01/01/20 11:45 36.6 C 88 18 141/61 H 97 01/01/20 11:01 94 H 162/71 H 01/01/20 08:12 36.6 C 92 H 18 135/49 L 97 01/01/20 07:33 95 H PG Care Time/CCT Total # of Minutes Spent Total Time Spent with Patient: Total time spent is greater than 50% in coordination of care (as documented) at patient's floor/unit and/or counseling patient: Coding Level of Care Code 69761 Subseq Hosp Care Lvl 3 Diagnoses Nausea & vomiting R11.2
[2020-01-01] MEDS: INSULIN HUMAN REGULAR SC SCH ×2 (17:16→21:11)
--- NOTE | 2020-01-01 19:16 | Billing Data ---
Date of Service January 01, 2020 Coding Level of Care Code 59184 Initial Inpt Care Lvl 3
[2020-01-01] MEDS: carvediloL 25 MG TAB PO SCH (21:10)
[2020-01-02] MEDS ORDERED: SODIUM CHLORIDE 0.9% 1000ML 1,000 ML IV PRN (07:00)
[2020-01-02] MEDS ORDERED: HEPARIN SOD (PORCINE) 1000 UNIT/ML 10 ML VIAL IV ONE (07:00)
[2020-01-02] MEDS: carvediloL 25 MG TAB PO SCH ×2 (08:23→20:55)
--- NOTE | 2020-01-02 08:26 | Hospitalist Progress Note ---
Date of Service January 02, 2020 Assessment & Plan (1) Nausea & vomitin-year-old male with a past medical history of type 1 diabetes mellitus, gastroparesis, hypertension, end-stage renal disease with dialysis Thursday, coronary artery disease, depression presents as a direct admission from outside hospital with concerns of nausea and vomiting and diarrhea. N/V/D Secondary to chronic ongoing diabetic gastroparesis, viral gastroenteritis seems to be ruled out and the fact of his quick resolution. 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 Repeat troponin has been negative at our facility Low concern for ACS. Patient denies any cardiac symptoms. Repeat troponin here on admission negative Repeat EKG on admission did not show any acute changes Type 1 diabetes mellitus Last hemoglobin A1c October 2019 7.9 Pt is well known to pharmacology for DM management from multiple prior admissions HTN -continue patients home PO medications once tolerating PO: Losartan 75mg PO qAM, Coreg 25mg BID ESRD on Dialysis -Has dialysis on MWF with left upper extremity AV fistula. Last received HD on Thu -Cr on admission 7.46. Baseline somewhere around ~5 it appears looking at previous labs -Appreciate nephrology consult to help manage HD needs moving forward CAD -Continue Lipitor 10mg PO QAM, Coreg 25mg BID once able Depression -Continue Sertraline 100mg PO, Wellbutrin 100mg PO once able DVT prophylaxis: SCDs Admission and Anticipated Discharge Date Admission Date: January 01, 2020 Subjective Patient was seen after dialysis he is feeling quite well he says he feels his nausea was from gastroparesis which was also brought on by him not having his typical Compazine medication at home. He wishes to advance his diet, he tolerated his dialysis session well without issues Review of Systems Review of Systems: Mild distress and fatigue no headache, blurry or double vision no speech or swallowing issues no chest pain, pressure or palpitations no shortness of breath, cough or wheezes no abdominal pain, nausea or vomiting, diarrhea or constipation no dysuria, hematuria or frequency no focal joint pain or swelling no back pain, CVA tenderness or radicular pain no bruising, bleeding or rashes no focal signs of weakness or numbness or altered sensation no complaints or anxiety or depression Physical Exam Physical Exam: The patient appeared well nourished and normally developed. Vital signs as documented. Head exam is normocephalic atraumatic no scleral icterus Neck is without JVD, thyromegaly, or carotid bruits. Lungs are clear to auscultation, no focal loss of breath sounds Cardiac exam, Rhythm is regular.. Systolic ejection murmur is heard Abdominal exam reveals normal bowel sounds, soft non tender, no masses Extremities are nonedematous and both pedal pulses are normal. Neurologic exam is alert and oriented, no focal loss of strength or sensation Skin is without bruises or rashes Psychologically is without concerns for anxiety or depression Results & Data Results & Data ([facility]) Vital Signs (Past 12 Hours) Vital Signs Temp Pulse Pulse Resp BP BP Pulse Ox 01/02/20 07:57 97.5 F L 64 18 132/62 96 01/02/20 07:20 67 01/02/20 04:53 97.5 F L 69 18 123/64 97 01/02/20 00:35 97.7 F 71 18 171/78 H 98 PG Care Time/CCT Total # of Minutes Spent Total Time Spent with Patient: Total time spent is greater than 50% in coordina tion of care (as documented) at patient's floor/unit and/or counseling patient: Coding Level of Care Code 33531 Subseq Hosp Care Lvl 3 Diagnoses Nausea & vomiting R11.2
[2020-01-02] MEDS ORDERED: PHARMACY GLYCEMIC MGMT CONSULT PRN (08:38)
[2020-01-02] MEDS: INSULIN HUMAN REGULAR SC SCH ×3 (08:41→20:55)
--- NOTE | 2020-01-02 10:54 | Pharmacy Report ---
Glycemic Control Consultation - Date of Service January 02, 2020 - Scope Scope: Glycemic Pharmacist consulted for glycemic control and to write orders per [facility] inpatient glycemic control protocol. - Objective Weight: 58.5 kg [place] BSG (last 24hrs): 01/01/20 01/01/20 01/01/20 11:44 16:52 20:42 POC Glucose 316 H* 225 H 138 H 01/02/20 01/02/20 01/02/20 00:13 00:44 07:22 POC Glucose 37 L* 151 H 244 H - Recent Pertinent Medications Outpatient Anti-diabetic Regimen: * Lantus 14 units SC qAM * Novolog SSI ACHS - CR of 12, MDD: 40 units * A1c = 7.9 % (10/25/19) - Assessment & Plan Assessment & Plan: ASSESSMENT: * GERBER is a 49 year old male who is well-known to the pharmacy glycemic service * Transferred to [facility] from outside hospital yesterday due to concerns of nausea and vomiting * Patient has longstanding history of nausea and vomiting secondary to gastroparesis * Patient with ESRD (HD MWF) - currently receiving HD now * Pharmacy discussed with managing provider yesterday and recommended regimen based on previous admission data (see below) * Recommendations accepted - pharmacy later consulted on 01/01 for glycemic management * Historically, patient has labile BSGs that are difficult to manage - better control has been achieved with the use of scheduled doses of regular insulin with a CF (see below) * Patient did not eat this morning, ordered for dialysis today, and had an episode of hypoglycemia last evening (BSG of 37 mg/dL) * BSG this morning of 244 mg/dL - will hold off on correctional insulin for now and just give 4 units based on scale PLAN FOR INPATIENT GLYCEMIC CONTROL: * Basal insulin * Regular insulin q6h * BSG 110 mg/dL or below - 2 units * BSG 111-150 mg/dL - 3 units * BSG 151 mg/dL or above - 4 units * Bolus insulin * Regular insulin * Goal Range: Low 110 mg/dL - High 150 mg/dL * Correction Factor: 30 mg/dL/unit * Please note that the plan above was derived based on current level of insulin resistance and hospital stress. These recommendations are appropriate for inpatient admission only. Plan of care upon discharge will need to be reassessed to avoid potential outpatient hypo/hyperglycemia. Thank you.
[2020-01-02] MEDS ORDERED: INSULIN HUMAN REGULAR SC SCH (12:00)
[2020-01-02] MEDS: HEPARIN SOD (PORCINE) 1000 UNIT/ML 10 ML VIAL IV SCH ×2 (15:33→15:34)
[2020-01-03] MEDS ORDERED: INSULIN HUMAN REGULAR SC SCH (07:30)
[2020-01-03] MEDS: carvediloL 25 MG TAB PO SCH (08:37)
--- NOTE | 2020-01-03 17:49 | Discharge Summary ---
Date of Service January 03, 2020 Admission HPI Per Admitting Provider 49-year-old male with a past medical history of type 1 diabetes mellitus, gastroparesis, hypertension, end-stage renal disease with dialysis Thursday, coronary artery disease, depression presents as a direct admission from outside hospital with concerns of nausea and vomiting and diarrhea that has been going on for 1 day. Patient is well-known to hospitalist service with multiple admissions for the same. Patient notes that he had dialysis on Thursday and felt okay afterwards. Later on in the evening he started to feel nauseated with one small emesis. Patient went to bed and was able to sleep okay. Patient woke up during the night with ongoing nausea and vomiting along with diarrhea this time. Patient was able to tolerate is home p.o. medications without issue. Patient presented to [facility] with the symptoms. He was noted to have Gastroccult positive emesis with significant hypertension with systolic in the 200s. Patient states he has no history of GI bleeding and is not on any blood thinners. Patient was noted to have a significant troponin 287 and suspected to have an atypical acute coronary syndrome. EKG showed normal sinus rhythm and was not consistent with a STEMI. Decision was made to transfer patient to [facility] given lack of cardiac catheterization, dialysis, GI availability at outside hospital. Upon my examination patient notes ongoing nausea and vomiting. History limited 2/2 pt participation. Patient otherwise denies any fevers, chills, chest pain, shortness of breath, palpitations, syncope or near syncope, edema, abdominal pain, urinary symptoms, sick contacts or recent travel. Patient with no other acute concerns or complaints. Pertinent labs from outside hospital: Sodium 129, chloride 86, creatinine 6.9, BUN 30, glucose 156, troponin 287 ER course from outside hospital: IV Compazine 10 mg, IV Zofran 4 mg Principal Diagnosis Nausea vomiting dehydration secondary to diabetic gastroparesis ->resolved Discharge Exam The patient appeared well Vital signs as documented. Lungs are clear to auscultation and appear unlabored Cardiac exam, Rhythm is regular.. No murmurs, rubs or gallops. Abdominal exam reveals normal bowel sounds, soft non tender, no masses Extremities are nonedematous and both pedal pulses are normal. Neurologic exam is alert and oriented, no focal loss of strength or sensation Skin is without bruises or rashes Psychologically is without concerns for anxiety or depression Discharge Data Allergies Allergy/AdvReac Type Severity Reaction Status Date / Time shellfish derived Allergy Severe anaphylaxis Verified 12/20/19 10:07 codeine Allergy Intermediate Hives Verified 12/20/19 10:07 promethazine Allergy Intermediate itchy/hives Verified 12/20/19 10:07 Consultations 01/01/20 08:32 Consult Nephrology Routine Hospital Course (1) Nausea & vomitin-year-old male with a past medical history of type 1 diabetes mellitus, gastroparesis, hypertension, end-stage renal disease with dialysis Thursday, coronary artery disease, depression presents as a direct admission from outside hospital with concerns of nausea and vomiting and diarrhea. N/V/D Secondary to chronic ongoing diabetic gastroparesis, viral gastroenteritis seems to be ruled out and the fact of his quick resolution. Patient feels this is because he did not have his typical Compazine which he takes when the symptoms flare he is completely returned back to his baseline including eating regular food prior to discharge. Anemia of chronic disease Hb continues to be stable Hyponatremia/hypokalemia Sodium 133, potassium 3.4 on admission In setting of large volume emesis Dialysis on 01/01 did electrolytes and continue his typical dialysis sessions Elevated troponin at OSH Patient with troponin .287 at outside hospital [employer]UFA[employer]. Repeat troponin has been negative at our facility Low concern for ACS. Patient denies any cardiac symptoms. Repeat troponin here on admission negative Repeat EKG on admission did not show any acute changes Type 1 diabetes mellitus Last hemoglobin A1c October 2019 7.9 Pt is comfortable with a very unique home regiment he crafts and manages himself HTN -continue Losartan 75mg PO qAM, Coreg 25mg BID ESRD on Dialysis -Has dialysis on MWF with left upper extremity AV fistula. Last received HD on Thu -Appreciate nephrology consult to help manage HD needs moving forward CAD -Continue Lipitor 10mg PO QAM, Coreg 25mg BID once able Depression -Continue Sertraline 100mg PO, Wellbutrin 100mg PO once able Total Time Total Time Spent Total Time Spent (In Minutes): Less than 30 minutes were required for this hospital discharge Discharge Plan Discharge Items Patient Disposition: Home - Self-Care Reason For Visit: N/V Discharge Diagnosis: vomiting, secondary to diabetic gastroparesis Activity: Resume your previous activity Non-emergency contact: Primary Care Provider Call non-emergency contact if: you have any medication questions and your symptoms worsen Follow-up/Referrals: Abbi Ames MD [Primary Care Provider] - 01/10/20 12:15 pm (Appointment with CAROL Argueta at Dr. Grove office) Diet: Carb Count or DM1 Addtl Attending Provider Instructions: please follow up with you primary care doctor please be attentive to your blood glucose level Pending Studies at Discharge: No Stand-Alone Forms: My [facility] [employer], Smoking Cessation Medications and DC Order Prescriptions: Continued bupropion HCl 100 mg tablet sustained-release 12 hr 100 mg PO QAM RF: 0 famotidine 20 mg tablet 20 mg PO [id number] Qty: 90 RF: 1 (DME) Contour Next Test Strips Strip See Dose Instructions .ROUTE .MEDSUPPLY Qty: 300 RF: 3 insulin aspart U-100 [Novolog Flexpen U-100 Insulin] 100 unit/mL (3 mL) insulin pen See Rx Instructions SUBCUT .COMPLEX PRN (Reason: sliding scale) Qty: 15 RF: 5 carvedilol 25 mg tablet 25 mg PO BID RF: 0 ondansetron 4 mg tablet,disintegrating 4 mg PO Q6H PRN (Reason: Nausea And Vomiting) RF: 0 lorazepam 0.5 mg tablet 0.5 mg PO DAILY PRN (Reason: Anxiety) RF: 0 Basaglar KwikPen U-100 Insulin 100 unit/mL (3 mL) insulin pen 14 units SQ QAM RF: 0 (DME) pen needle, diabetic [BD Ultra-Fine Annalise Pen Needle] 32 gauge x 5/32" needle See Rx Instructions .ROUTE .MEDSUPPLY RF: 0 losartan 50 mg tablet 75 mg PO QAM RF: 0 atorvastatin 10 mg tablet 10 mg PO QAM RF: 0 metoclopramide HCl 5 mg tablet 5 mg PO ACHS RF: 0 acetaminophen [Acetaminophen Extra Strength] 500 mg Tablet 500 mg PO Q6H MDD 3000 MG/DAY PRN (Reason: Fever Or Pain) RF: 0 prochlorperazine maleate 5 mg tablet 5 mg PO Q8H PRN (Reason: nausea and vomiting) Qty: 10 RF: 1 Chris Caps 1 mg capsule 1 cap PO QAM RF: 0 sertraline 100 mg tablet 100 mg PO QAM RF: 0 calcium acetate(phosphat bind) 667 mg capsule 667 mg PO DIRECTED MDD 7 CAPSULES/DAILY RF: 0 Discharge Orders: Discharge Order (Routine); Ordered 01/03/20 Ordered By: Dionicio Dockery/Other Patient Handouts: ED Dehydration (Adult) Admission Data Admit Date/Time: 01/01/20 02:47 Attending Provider: Dionicio Haro Admit Provider: Colton Guajardo Primary Care Provider: Abbi Ames V. Other Providers: Suman Montilla Other Interventions: Discharge Summary Assessment (RN) Last Done: 01/03/20 09:39 DC Date/Time DO NOT enter until pt leaves facility: 01/03/20 10:23 Coding Level of Care Code D/C Day Management <30 mins Diagnoses Nausea & vomiting R11.2
--- NOTE | 2020-01-04 16:28 | Electrocardiogram Report ---
Test Reason : Blood Pressure : / mmHG Vent. Rate : 072 BPM Atrial Rate : 072 BPM P-R Int : 190 ms QRS Dur : 094 ms QT Int : 444 ms P-R-T Axes : 064 054 073 degrees QTc Int : 486 ms Poor data quality, interpretation may be adversely affected Normal sinus rhythm Prolonged QT Abnormal ECG When compared with ECG of 11-NOV-2019 11:06, No significant change was found Confirmed by Alex Gracia ([id number] on 01/04/2020 4:28:06 PM Referred By: Colton Guajardo Confirmed By:Alex Gracia
== END 2020-01-03 10:23 | disposition home or self-care (01) ==
LOC: INTOOBSV 01-01 02:13 → 2S 01-01 02:13 → SUATTDRO 01-01 02:13

== ENCOUNTER 2020-03-07 12:11 | Inpatient (IN) ==
[2020-03-07] MEDS ORDERED: SODIUM CHLORIDE 0.9% 500 ML IV ONE (13:51)
[2020-03-07] MEDS ORDERED: ONDANSETRON INJ 2 MG/ML 2 ML VIAL IV STA (13:51)
[2020-03-07] MEDS ORDERED: METOCLOPRAMIDE HCL INJ 5 MG/ML 2 ML VIAL IV STA (13:51)
[2020-03-07] MEDS ORDERED: PANTOprazole 80 MG in DEXTROSE 5% 100 ML IV ONE (14:07)
[2020-03-07] MEDS ORDERED: PANTOPRAZOLE BOLUS/DRIP 1 EA IV STA (14:07)
--- NOTE | 2020-03-07 14:08 | Emergency Department Note ---
Impression & Plan DKA (diabetic ketoacidoses), Hypertension, ESRD on dialysis, Gastroparesis, Vomiting, Hematemesis ED Provider Note NAME: JERARDO PEREZ AGE: 49 SEX: M : 1970 ARRIVES VIA: Ambulance INFORMANT: Patient ED PROVIDER(S): Obie Lancaster DO CHIEF COMPLAINT: vomiting HPI: Patient is a 49-year-old male who presents the ER for vomiting. He has a past medical history of gastroparesis and type I diabetic, with CAD and hypertension. He notes the vomiting has been going on for the past 24 hours. He was seen here 2 times before this in the past 24 hours for the same complaint. Now he is vomiting up coffee-ground emesis. He had a complete dialysis treatment today. He denies any headache. No chest pain or shortness of breath. Stomach does feel upset. He denies any new pain. Does not make any urine. No other exacerbating or remitting factors. He is been unable to get his medications down today. ROS: See above HPI for pertinent positives & negatives. A total of 10 systems reviewed and were otherwise negative. PAST MEDICAL HISTORY:See Below PAST SURGICAL HISTORY:See Below FAMILY HISTORY:See Below SOCIAL HISTORY:See Below HOME MEDICATIONS:See Below ALLERGIES:See Below VITALS:See Below PHYSICAL EXAMINATION: GENERAL: Sitting up in bed, alert, ill-appearing, disheveled, intermittently dry heaving EYE EXAM: normal conjunctiva. OROPHARYNX: no exudate, no erythema, lips, buccal mucosa, and tongue normal and mucous membranes are moist NECK: supple, no nuchal rigidity, no adenopathy, non-tender LUNGS: Clear to auscultation. Normal chest wall mechanics HEART: no murmurs, S1 normal and S2 normal ABDOMEN: abdomen soft, non-tender, normo-active bowel sounds, no masses, no rebound or guarding. BACK: Back is symmetrical on inspection and there is no deformity, no midline tenderness, no CVA tenderness. SKIN: no rashes and no bruising UPPER EXTREMITIES: upper extremities are grossly normal. LOWER EXTREMITIES: No pitting edema. NEURO EXAM: Normal sensorium, cranial nerves II-XII grossly intact, normal speech, no gross weakness of arms, no gross weakness of legs. MEDICAL DECISION MAKING: Patient is a 41-year-old male who presents the ER for persistent vomiting. He was seen twice prior to this visit in the past 24 hours. He was at dialysis following which he received a full treatment and was having coffee-ground emesis. IV was established blood work was obtained. Labs showed a leukocytosis 25,000. Hemoglobin was stable at 13. BMP with a low sodium at 133 and a CO2 of 15. Creatinine was elevated at 9. He had a gap of 29. Sugar was 416. He was given a small bolus of IV fluids as he is a dialysis player. He was placed on a insulin drip and given a bolus of 6 units prior to the drip. LFTs bilirubin was unremarkable. Beta hydroxybutyric was elevated. He was typed and screened. CT abdomen pelvis shows no acute pathology. X-ray of the chest was unremarkable. He was placed on Protonix drip and bolus as well. Updated admitted for further work-up. He was also given IV labetalol in combination with Reglan and Zofran. Triage Nursing notes reviewed. Prior medical records reviewed Vital Signs: reviewed and remarkable for HTN Differential diagnosis: Differential diagnoses includes but is not limited to gastritis, peptic ulcer d isease, GERD, gallbladder disease, pancreatitis, small bowel obstruction, acute coronary syndrome, pericarditis, ischemic bowel, irritable bowel disease, irritable bowel syndrome, appendicitis, diverticulitis, malignancy, hernia, urinary tract infection, torsion, perforation, trauma, infectious. ER treatment provided: See below Diagnostics interpreted by me: ECG: none Cardiac Monitoring: An order was placed for continuous cardiac monitoring. The monitor shows a rate of 90 with sinus rhythm. Laboratory studies: As stated above and show below. Imaging studies: CT abdomen pelvis shows no acute pathology Chest x-ray was unremarkable Consultation(s): Discussed with Dr. Guevara Loomis for further evaluation ED COURSE: Procedures: none Critical Care: I have personally spent 32 minutes of critical care time in the direct management of this patient. This includes bedside care, interpretation of diagnostic studies, and testing, discussion with consultants, patient, and family members, and other required patient management activities. This 32 minutes is in excess of all separately billable procedures. Past Med/Surg History Medical History Anxiety AV fistula left arm CAD (coronary artery disease) mild, non-obstructive CAD per 10/2018 cardiac cath> [facility] Depression Diabetes mellitus type I Diabetic neuropathy Diabetic retinopathy Dialysis patient ESRD (end stage renal disease) M,W,F (Follows with Dr. Taylor Higgins; [facility]) Gastroparesis GERD (gastroesophageal reflux disease) Hypertension Kidney stones Surgical History H/O shoulder surgery RIGHT History of appendectomy History of cardiac cath 10/2018= no stents, no obstructive disease (at [facility]) History of esophagogastroduodenoscopy (EGD) History of hip surgery left HIP ARTHROSCOPY History of lithotripsy History of open reduction and internal fixation (ORIF) procedure right hip Nausea and vomiting after administration of anesthetic agent Permanent central venous catheter in place Permacath and since has been removed Family History Grandfather Myocardial infarction Grandfather (Maternal) Family history of diabetes mellitus Uncle Myocardial infarction Denies family history of Colon cancer Ovarian cancer Prostate cancer Breast cancer Social History Smoking Status: Never smoker Second Hand Exposure: No; Hx Alcohol Use: No Hx Substance Use: No Preferred Language: Malawian Communication Ability: Effective Visual Impairment: No Limitations Hearing Ability: Normal Case Management Associate Required: No Beliefs That Will Affect Care: None marital status: Single Current Living Situation: Parent current occupational status: disabled How many Children do You have: 2 Feels Safe at Home: Yes Childhood Exposure to Second-Hand Smoke: Yes Dental Care, Regularly: No Physical Activity Frequency: 1-2 Times per Week Seatbelt Use: always Sunscreen Use: No Assistive Devices: Glasses Allergies Allergies Allergy/AdvReac Type Severity Reaction Status Date / Time shellfish derived Allergy Severe anaphylaxis Verified 03/07/20 14:40 codeine Allergy Intermediate Hives Verified 03/07/20 14:40 promethazine Allergy Intermediate itchy/hives Verified 03/07/20 14:40 Home Meds Home Medications Medication Instructions Recorded Confirmed [place] Caps 1 cap PO QAM 12/19/18 03/07/20 sertraline 100 mg PO QAM 03/21/19 03/07/20 bupropion HCl 100 mg tablet,12 hr 100 mg PO QAM ea 04/14/19 03/07/20 sustained-release carvedilol 25 mg tablet 25 mg PO BID tab 06/16/19 03/07/20 atorvastatin 10 mg PO QAM 06/21/19 03/07/20 losartan 75 mg PO QAM 06/21/19 03/07/20 acetaminophen [Acetaminophen Extra 500 mg PO Q6H PRN MDD 3000 MG/DAY 07/13/19 03/07/20 Strength] lorazepam 0.5 mg tablet 0.5 mg PO Q12 PRN tab 07/25/19 03/07/20 insulin aspart U-100 [Novolog 1 unit SUBCUT UD PRN 02/01/20 03/07/20 Flexpen U-100 Insulin] sucroferric oxyhydroxide [Velphoro] 500 mg PO AC 02/01/20 03/07/20 insulin glargine [Basaglar KwikPen 14 unit SUBCUT DAILY 03/06/20 03/07/20 U-100 Insulin] famotidine 20 mg PO MOWEFR 03/07/20 03/07/20 Previous Rx's Medication Instructions Recorded Contour Next Test Strips #300 ea NS 10/26/19 prochlorperazine maleate 5 mg PO Q8H PRN #10 tab 01/03/20 pen needle, diabetic 32 gauge x #500 ea 01/25/20" Results & Data (ED) Vital Signs Vital Signs - 24 hr 03/07/20 12:28 03/07/20 13:49 03/07/20 14:28 Temperature 36.9 C Temperature Source Oral Pulse Rate 101 H Pulse Rate [Apical] 93 H Pulse Rate from SpO2 Sensor Respiratory Rate 18 18 Blood Pressure 197/93 H Blood Pressure [Right Arm] 159/76 H Blood Pressure Mean 127 Blood Pressure Mean [Right Arm] 103 Pulse Oximetry 98 98 98 Oxygen Delivery Method Room Air Room Air Room Air Sepsis Recent Fever Within 48 Hours No Sepsis New/Unexplained Change in Mental Status No Sepsis Action Taken by Nursing No Action Required 03/07/20 15:30 03/07/20 15:31 03/07/20 16:00 Temperature Temperature Source Pulse Rate 94 H 94 H 98 H Pulse Rate [Apical] Pulse Rate from SpO2 Sensor 94 H 94 H 98 H Respiratory Rate 16 17 12 Blood Pressure 170/81 H 188/89 H Blood Pressure [Right Arm] Blood Pressure Mean 97 117 Blood Pressure Mean [Right Arm] Pulse Oximetry 98 98 97 Oxygen Delivery Method Room Air Room Air Room Air Sepsis Recent Fever Within 48 Hours Sepsis New/Unexplained Change in Mental Status Sepsis Action Taken by Nursing 03/07/20 16:01 03/07/20 16:30 03/07/20 16:31 Temperature Temperature Source Pulse Rate 98 H Pulse Rate [Apical] Pulse Rate from SpO2 Sensor 98 H 95 H 95 H Respiratory Rate 14 14 16 Blood Pressure 171/84 H Blood Pressure [Right Arm] Blood Pressure Mean 111 Blood Pressure Mean [Right Arm] Pulse Oximetry 98 97 97 Oxygen Delivery Method Room Air Room Air Room Air Sepsis Recent Fever Within 48 Hours Sepsis New/Unexplained Change in Mental Status Sepsis Action Taken by Nursing Laboratory Data Result diagrams: 03/07/20 14:04 03/07/20 15:15 Lab Results 03/07/20 03/07/20 03/07/20 Range/Units 14:00 14:00 14:04 WBC 25.56 H D (4.8-10.8) K/uL RBC 4.02 L (4.7-6.1) M/uL Hgb 13.2 L (14.0-18.0) g/dL Hct 39.6 L (42-52) % MCV 98.5 (80-100) fL MCH 32.8 (25-34) pg MCHC 33.3 (32-36) g/dL RDW Std Deviation 46.0 (36.4-46.3) fL RDW Coeff of Kami 12.7 (11.5-14.5) % Plt Count 340 (130-400) K/uL MPV 9.3 (7.4-10.4) fL Immature Gran % (Auto) 0.4 % Neut % (Auto) 91.8 % Lymph % (Auto) 3.2 % [place] % (Auto) 4.6 % Eos % (Auto) 0.0 % Baso % (Auto) 0.0 % Neut # (Auto) 23.47 H (1.4-6.5) K/uL Lymph # (Auto) 0.81 L (1.2-3.4) K/uL [place] # (Auto) 1.18 H (0.11-0.59) K/uL Eos # (Auto) 0.00 (0-0.5) K/uL Baso # (Auto) 0.01 (0-0.2) K/uL Immature Gran # (Auto) 0.09 H (0.00-0.02) K/uL Sodium 133 L (136-145) mmol/L Potassium TNP Chloride 89 L (98-107) mmol/L Carbon Dioxide 15 L (21-32) mmol/L Anion Gap 29.0 H (3-11) BUN 76 H (7-18) mg/dl Creatinine 9.04 H* D (0.6-1.4) mg/dl Est Cr Clr Drug Dosing 8.7 ml/min Est GFR ( Amer) 7.1 Est GFR (Non-Af Amer) 6.1 BUN/Creatinine Ratio 8.4 L (10-20) Glucose 416 H* (70-99) mg/dl Calcium 9.0 (8.5-10.1) mg/dl Total Bilirubin 0.9 (0.2-1) mg/dl AST (15-37) U/L ALT 20 (12-78) U/L Alkaline Phosphatase 93 (45-117) U/L Total Protein 7.9 (6.4-8.2) gm/dl Albumin 4.1 (3.4-5.0) gm/dl Globulin 3.8 (2.5-4.0) gm/dl Albumin/Globulin Ratio 1.1 (0.9-2) Lipase 96 (73-393) U/L Beta-Hydroxybutyric Acd Cancelled Blood Type Cancelled Antibody Screen Cancelled 03/07/20 03/07/20 Range/Units 15:15 15:15 WBC (4.8-10.8) K/uL RBC (4.7-6.1) M/uL Hgb (14.0-18.0) g/dL Hct (42-52) % MCV (80-100) fL MCH (25-34) pg MCHC (32-36) g/dL RDW Std Deviation (36.4-46.3) fL RDW Coeff of Kami (11.5-14.5) % Plt Count (130-400) K/uL MPV (7.4-10.4) fL Immature Gran % (Auto) % Neut % (Auto) % Lymph % (Auto) % [place] % (Auto) % Eos % (Auto) % Baso % (Auto) % Neut # (Auto) (1.4-6.5) K/uL Lymph # (Auto) (1.2-3.4) K/uL [place] # (Auto) (0.11-0.59) K/uL Eos # (Auto) (0-0.5) K/uL Baso # (Auto) (0-0.2) K/uL Immature Gran # (Auto) (0.00-0.02) K/uL Sodium (136-145) mmol/L Potassium 3.8 Chloride (98-107) mmol/L Carbon Dioxide (21-32) mmol/L Anion Gap (3-11) BUN (7-18) mg/dl Creatinine (0.6-1.4) mg/dl Est Cr Clr Drug Dosing ml/min Est GFR ( Amer) Est GFR (Non-Af Amer) BUN/Creatinine Ratio (10-20) Glucose (70-99) mg/dl Calcium (8.5-10.1) mg/dl Total Bilirubin (0.2-1) mg/dl AST 13 L (15-37) U/L ALT (12-78) U/L Alkaline Phosphatase (45-117) U/L Total Protein (6.4-8.2) gm/dl Albumin (3.4-5.0) gm/dl Globulin (2.5-4.0) gm/dl Albumin/Globulin Ratio (0.9-2) Lipase (73-393) U/L Beta-Hydroxybutyric Acd 91.01 H Blood Type B Negative Antibody Screen NEGATIVE Administered Medications Insulin Human Regular 250 (units/ Sodium Chloride) 250 mls @ 6.2 mls/hr IV .Q24H [facility]; Protocol Stop: 04/06/20 16:44 Last Admin: 03/07/20 18:19 Dose: 1.5 units/hr, 1.5 mls/hr Documented by: [id number] Cosigned by: [id number] Discontinued Medications Sodium Chloride (Nss) 500 mls @ 999 mls/hr IV .Q31M ONE Stop: 03/07/20 14:21 Last Infusion: 03/07/20 14:49 Dose: 0 mls/hr Documented by: [id number] Admin: 03/07/20 14:16 Dose: 999 mls/hr Documented by: [id number] Pantoprazole Sodium (Protonix Bolus/Drip) 0 mls @ 1 mls/hr IV ONE STA Stop: 03/07/20 14:08 Last Admin: 03/07/20 15:42 Dose: Not Given Documented by: [id number] Pantoprazole Sodium 40 mg/ (Dextrose) 100 mls @ 20 mls/hr IV Q5H JACKI Stop: 04/06/20 14:22 Last Infusion: 03/07/20 19:09 Dose: 0 mg/hr, 0 mls/hr Documented by: [id number] Infusion: 03/07/20 18:22 Dose: 0 mg/hr, 0 mls/hr Documented by: [id number] Admin: 03/07/20 15:42 Dose: 8 mg/hr, 20 mls/hr Documented by: [id number] Pantoprazole Sodium 80 mg/ (Dextrose) 120 mls @ 400 mls/hr IV NOW ONE Stop: 03/07/20 14:24 Last Infusion: 03/07/20 14:50 Dose: 0 mls/hr Documented by: [id number] Admin: 03/07/20 14:32 Dose: 400 mls/hr Documented by: [id number] Insulin Human Regular (Novolin-R Bolus From Bag) 6 units IV ONE ONE Stop: 03/07/20 16:46 Last Admin: 03/07/20 18:20 Dose: 6 units Documented by: [id number] Cosigned by: [id number] Labetalol HCl (Labetalol Hcl Iv 5 Mg/Ml 20ml) 10 mg IV NOW STA Stop: 03/07/20 14:10 Last Admin: 03/07/20 14:15 Dose: 10 mg Documented by: [id number] Cosigned by: [id number] Metoclopramide HCl (Metoclopramide Hcl Inj 5 Mg/Ml 2 Ml Vial) 10 mg IV NOW STA Stop: 03/07/20 13:52 Last Admin: 03/07/20 14:15 Dose: 10 mg Documented by: [id number] Miscellaneous (Dka Goal Range 150-250 Mg/Dl) 1 ea N/A ONE ONE Stop: 03/07/20 16:33 Last Admin: 03/07/20 18:20 Dose: Not Given Documented by: [id number] Miscellaneous Information (Pharmacy Glycemic Mgmt Consult) 1 ea N/A NOW STA Stop: 03/07/20 16:45 Last Admin: 09/30/20 18:21 Dose: Not Given Documented by: [id number] Ondansetron HCl (Ondansetron Inj 2 Mg/Ml 2 Ml Vial) 4 mg IV NOW STA Stop: 03/07/20 13:52 Last Admin: 03/07/20 14:15 Dose: 4 mg Documented by: [id number] Discharge Plan Visit Data Chief Complaint: Vomiting Stated Complaint: VOMITING ED Provider: Obie Lancaster Discharge Problem: DKA (diabetic ketoacidoses), Hypertension, ESRD on dialysis, Gastroparesis, Vomiting, Hematemesis Patient Disposition: Admitted As Inpatient Discharge Instructions Interventions: ED Discharge Assessment Last Done: 03/07/20 18:33 Discharge Problem: DKA (diabetic ketoacidoses) Qualifiers: Diabetes mellitus type: other specified (including DIANE) Diabetes mellitus complication detail: without coma Qualified Code(s): E13.10 - Other specified diabetes mellitus with ketoacidosis without coma Hypertension Qualifiers: Hypertension type: unspecified Qualified Code(s): I10 - Essential (primary) hypertension Vomiting Qualifiers: Vomiting type: unspecified Vomiting Intractability: unspecified Nausea presence: unspecified Qualified Code(s): R11.10 - Vomiting, unspecified Hematemesis Qualifiers: Nausea presence: with nausea Qualified Code(s): K92.0 - Hematemesis
[2020-03-07] MEDS ORDERED: LABETALOL HCL IV 5 MG/ML 20ML IV STA (14:09)
[2020-03-07 14:20] LABS: Hematocrit (blood only) 39.6 % (42-52); Hemoglobin 13.2 g/dL (14.0-18.0); Mean Corpuscular Hemoglobin 32.8 pg (25-34); Mean Corpuscular Hgb Conc 33.3 g/dL (32-36); Mean Corpuscular Volume 98.5 fL (80-100); Mean Platelet Volume 9.3 fL (7.4-10.4); Platelet Count 340 K/uL (130-400); RDW Coefficient of Variation 12.7 % (11.5-14.5); Red Blood Count 4.02 M/uL (4.7-6.1); White Blood Count 25.56 K/uL (4.8-10.8)
[2020-03-07] MEDS ORDERED: PANTOprazole 40 MG in DEXTROSE 5% 100 ML IV SCH (14:23)
[2020-03-07 14:34] LABS: Basophils # (auto) 0.01 K/uL (0-0.2); Immature Granulocytes # (auto) 0.09 K/uL (0.00-0.02); Immature Granulocytes % (auto) 0.4 %; Lymphocytes # (auto) 0.81 K/uL (1.2-3.4); Lymphocytes % (auto) 3.2 %; Monocytes # (auto) 1.18 K/uL (0.11-0.59); Monocytes % (auto) 4.6 %; Neutrophils # (auto) 23.47 K/uL (1.4-6.5); Neutrophils % (auto) 91.8 %
[2020-03-07 14:54] LABS: Alanine Aminotransferase 20 U/L (12-78); Albumin Globulin Ratio 1.1 (0.9-2); Albumin Level 4.1 gm/dl (3.4-5.0); Alkaline Phosphatase 93 U/L (45-117); BUN Creatinine Ratio 8.4 (10-20); Bilirubin,Total 0.9 mg/dl (0.2-1); Blood Urea Nitrogen 76 mg/dl (7-18); Carbon Dioxide 15 mmol/L (21-32); Chloride 89 mmol/L (98-107); Creatinine Clr Calc Pharmacy 8.7 ml/min; Est GFR (African American) 7.1; Est GFR (Non-African American) 6.1; Globulin 3.8 gm/dl (2.5-4.0); Glucose 416 mg/dl (70-99); Lipase 96 U/L (73-393); Sodium 133 mmol/L (136-145); Total Protein 7.9 gm/dl (6.4-8.2)
[2020-03-07 15:54] LABS: Potassium 3.8 mmol/L (3.5-5.1)
--- NOTE | 2020-03-07 16:11 | XRay Report ---
XR chest 1V portable CLINICAL HISTORY: vomiting up blood COMPARISON STUDY: Chest radiograph July 13, 2019. FINDINGS: Lung volumes are normal. Lungs are clear. There is no pneumothorax or pleural effusion. Car diac size is normal. Mediastinal contours are normal. There is no evidence for pulmonary edema. IMPRESSION: No acute cardiopulmonary findings. ACT 112: Negative or not required by law. Electronically signed by: Gabino Cool M.D. 03/07/2020 4:09 PM
[2020-03-07 16:23] LABS: Beta-Hydroxybutyrate 91.01 mg/dl (0.2-2.81)
[2020-03-07] MEDS ORDERED: DKA GOAL RANGE 150-250 mg/dl ONE ×2 (16:32→19:45)
[2020-03-07] MEDS ORDERED: ED DKA INSULIN DRIP ONE (16:32)
[2020-03-07] MEDS ORDERED: PHARMACY GLYCEMIC MGMT CONSULT STA (16:44)
[2020-03-07] MEDS ORDERED: CARBOHYDRATES FOR HYPOGLYCEMIA PO PRN (16:45)
[2020-03-07] MEDS ORDERED: DEXTROSE 50% 50 ML SYRINGE IV PRN (16:45)
[2020-03-07] MEDS ORDERED: GLUCOSE 10 TABS/TUBE PO PRN (16:45)
[2020-03-07] MEDS ORDERED: GLUCOSE 40% GEL 15 GM TUBE PO PRN (16:45)
[2020-03-07] MEDS ORDERED: NovoLIN-R BOLUS FROM BAG IV ONE (16:45)
[2020-03-07] MEDS ORDERED: GLUCAGON FOR INJ 1 MG VIAL IM PRN (16:45)
--- NOTE | 2020-03-07 16:50 | History & Physical Report ---
Date of Service March 07, 2020 Assessment & Plan (1) Nausea and vomiting: Admit [facility] Patient with history of severe gastroparesis with frequent admission for nausea and vomiting. Now with coffee ground emesis. 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 No chest pain, sob, headache Continue home losartan, Coreg PRN hydralazine (5) Depression: Continue home sertraline and bupropion (6) ESRD on dialysis: Consult nephrology - patient sees Dr. Guadalupe from [facility]. Last dialysis 03/07 (7) Diabetes mellitus type I: Insulin gtt as above (8) CAD (coronary artery disease): Continue home Coreg, atorvastatin (9) DVT prophylaxis: SCDs, hold chemoprophylaxis due to coffee ground emesis. History of Present Illness Mr. De Los Santos presents for persistent nausea with coffee ground emesis. He presented to the emergency department for [place] and vomiting last evening and then presented again this morning for the same complaints. He went to dialysis but from dialysis was sent back to the emergency department. He appears to be in DKA as well. He denies aches, chills, fevers, sob, chest pain, or any abdominal pain. He does report occasional cough but feels this is from post nasal drip due to allergies. He is having some loose stools. He feels he is having some heartburn. Primary Care Provider: Abbi Ames MD Allergies Allergy/AdvReac Type Severity Reaction Status Date / Time shellfish derived Allergy Severe anaphylaxis Verified 03/07/20 14:40 codeine Allergy Intermediate Hives Verified 03/07/20 14:40 promethazine Allergy Intermediate itchy/hives Verified 03/07/20 14:40 Home Medications Home Medications Medication Instructions Recorded Confirmed Type [place] Caps 1 cap PO QAM 12/19/18 03/07/20 History sertraline 100 mg PO QAM 03/21/19 03/07/20 History bupropion HCl 100 mg tablet,12 hr 100 mg PO QAM ea 04/14/19 03/07/20 History sustained-release carvedilol 25 mg tablet 25 mg PO BID tab 06/16/19 03/07/20 History atorvastatin 10 mg PO QAM 06/21/19 03/07/20 History losartan 75 mg PO QAM 06/21/19 03/07/20 History acetaminophen [Acetaminophen Extra 500 mg PO Q6H PRN MDD 3000 MG/DAY 07/13/19 03/07/20 History Strength] lorazepam 0.5 mg tablet 0.5 mg PO Q12 PRN tab 07/25/19 03/07/20 History Contour Next Test Strips #300 ea NS 10/26/19 03/05/20 Rx prochlorperazine maleate 5 mg PO Q8H PRN #10 tab 01/03/20 03/07/20 Rx pen needle, diabetic 32 gauge x #500 ea 01/25/20 03/05/20 Rx 5/32" insulin aspart U-100 [Novolog 1 unit SUBCUT UD PRN 02/01/20 03/07/20 History Flexpen U-100 Insulin] sucroferric oxyhydroxide [Velphoro] 500 mg PO AC 02/01/20 03/07/20 History insulin glargine [Basaglar KwikPen 14 unit SUBCUT DAILY 03/06/20 03/07/20 History U-100 Insulin] famotidine 20 mg PO MOWEFR 03/07/20 03/07/20 History Past Med/Surg History Medical History Anxiety AV fistula left arm CAD (coronary artery disease) mild, non-obstructive CAD per 10/2018 cardiac cath> [facility] Depression Diabetes mellitus type I Diabetic neuropathy Diabetic retinopathy Dialysis patient ESRD (end stage renal disease) M,W,F (Follows with Dr. Taylor Higgins; [facility]) Gastroparesis GERD (gastroesophageal reflux disease) Hypertension Kidney stones Surgical History H/O shoulder surgery RIGHT History of appendectomy History of cardiac cath 10/2018= no stents, no obstructive disease (at [facility]) History of esophagogastroduodenoscopy (EGD) History of hip surgery left HIP ARTHROSCOPY History of lithotripsy History of open reduction and internal fixation (ORIF) procedure right hip Nausea and vomiting after administration of anesthetic agent Permanent central venous catheter in place Permacath and since has been removed Family History Grandfather Myocardial infarction Grandfather (Maternal) Family history of diabetes mellitus Uncle Myocardial infarction Denies family history of Colon cancer Ovarian cancer Prostate cancer Breast cancer Social History Smoking Status: Never smoker Second Hand Exposure: No; Do You Dip or Chew Tobacco: Yes; Hx Alcohol Use: No Hx Substance Use: No Preferred Language: Kosovan Communication Ability: Effective Visual Impairment: No Limitations Hearing Ability: Normal Swat Team Member Required: No Beliefs That Will Affect Care: None marital status: Single Current Living Situation: Family current occupational status: disabled How many Children do You have: 2 Feels Safe at Home: Yes Safety Concerns: Feels Safe At This Time Childhood Exposure to Second-Hand Smoke: Yes Dental Care, Regularly: No Physical Activity Frequency: 1-2 Times per Week Seatbelt Use: always Sunscreen Use: No Assistive Devices: Glasses Review of Systems Review of Systems: All systems reviewed & are unremarkable except as noted in HPI & below Physical Exam Physical Exam: General: no distress Eyes: normal inspection, PERLL Respiratory: chest non tender, clear to auscultation, normal breath sounds, no respiratory distress, no accessory muscle use Cardiac: regular rate and rhythm, no rub or gallop, no murmur, no edema, no jvd GI/: active bowel sounds, no abd pain or tenderness, soft, non distended Extremities: normal range of motion, normal strength, non tender Neuro/Psych: alert and oriented x 3, normal mood and affect Skin: normal color, dry Results & Data Results & Data ([facility]) Vital Signs (Past 12 Hours) Vital Signs Temp Pulse Pulse Resp BP BP Pulse Ox 03/07/20 14:28 93 H 18 159/76 H 98 03/07/20 13:49 98 09/30/20 12:28 36.9 C 101 H 18 197/93 H 98 Code Status & VTE Plan Code Status full Supervising Physician Co-Signing Physician Notes Patient seen and examined with Belkis GARRIDO. I agree with her exam findings, review of systems, assessment and plan. I personally reviewed the lab work and imaging as well. patient with nausea and vomiting started three days ago, he was able to get through HD on Thursday and a brief s ession today evidence of DKA on lab work, sugars in the 400's WBC 25k, unclear etiology, no clear sign of infection - DKA: insulin drip, management per pharmacy - Vomiting: he reports coffee ground emesis, says he has had that before vitals stable, Hb is 13, will order protonix drip, NPO after midnight, consult GI for recommendations - Leukocytosis: 25k, no fever, has vomiting, will place on Zosyn empirically for 48 hours, follow up cultures PG Care Time/CCT Total # of Minutes Spent Total Time Spent with Patient: Total time spent is greater than 50% in coordination of care (as documented) at patient's floor/unit and/or counseling patient: Coding Level of Care Code 43628 Initial Inpt Care Lvl 3 Diagnoses Nausea and vomiting R11.2 Gastroparesis K31.84 DKA (diabetic ketoacidoses) E13.10 Hypertension I10 Hypertension type: unspecified Depression F33.9 Active/Remission status: remission status unspecified Depression Type: major depressive disorder Major depression recurrence: recurrent ESRD on dialysis N18.6; Z99.2 Diabetes mellitus type I E10.9 CAD (coronary artery disease) I25.10 Associated angina: without angina Coronary Disease-Associated Artery/Lesion type: [place] artery [place] vs. transplanted heart: creek heart DVT prophylaxis Z29.9 (1) CAD (coronary artery disease) Associated angina: without angina Coronary Disease-Associated Artery/Lesion type: [place] artery [place] vs. transplanted heart: creek heart Qualified Code(s): I25.10 - Atherosclerotic heart disease of creek coronary artery without angina pectoris (2) Depression Active/Remission status: remission status unspecified Depression Type: major depressive disorder Major depression recurrence: recurrent Qualified Code(s): F33.9 - Major depressive disorder, recurrent, unspecified (3) Hypertension Hypertension type: unspecified Qualified Code(s): I10 - Essential (primary) hypertension
--- NOTE | 2020-03-07 17:11 | CT Scan Report ---
CT SCAN OF THE ABDOMEN AND PELVIS WITHOUT IV CONTRAST CLINICAL HISTORY: Vomiting. COMPARISON STUDY: Abdominal CT dated 01/31/2019. TECHNIQUE: CT scan of the abdomen and pelvis is performed from the lung bases to the proximal femora. Images are reviewed in the axial, sagittal, and coronal planes. IV contrast was not administered for this examination. Note that the examination was performed in suboptimal fashion without IV contrast. A dose lowering technique was utilized adhering to the principles of ALARA. The examination is degra ded by motion artifact. CT DOSE: 278.66 mGy.cm FINDINGS: Lung bases: The heart is top normal in size and without pericardial effusion. The lung bases are tracey r. There is a small hiatal hernia. Liver: The unenhanced liver is normal in size, contour, and attenuation. There is no intrahepatic ginette iary ductal dilatation. Gallbladder: Unremarkable. Spleen: Normal in size and attenuation. Pancreas: The unenhanced pancreas is moderately atrophic and grossly unremarkable. Adrenal glands: Unremarkable. Kidneys: The unenhanced kidneys demonstrate cortical atrophy and are without hydronephrosis. There is a millimeter nonobstructing calculus in the lower pole of the right kidney. No left renal calculi ar e identified. There is no evidence of contour deforming renal mass lesion. Abdominal vasculature: The abdominal aorta is normal in course and caliber noting mild atheroscleroti c calcification. Advanced atherosclerotic calcification is seen within the visualized lower extremity arteries. Bowel: There is no bowel obstruction. There are scattered colonic diverticula without CT evidence of acute diverticulitis. There is underdistention versus mild wall thickening of the colon. The appendix is surgically absent. Peritoneum: There is no intraperitoneal free air or abdominal ascites. Lymphadenopathy: None. Pelvic viscera: The prostate gland is mildly enlarged and heterogeneous. The bladder is distended. Th e bladder wall appears mildly thickened and trabeculated suggesting chronic outlet obstruction. Skeletal structures: The skeletal structures are osteopenic. There is an acute to subacute appearing compression fracture of L5 with mild to moderate loss of height. Chronic compression deformity is not ed involving T11 and T12. No lytic or blastic lesions are seen. Intertrochanteric and intramedullary nails are present in the right hip. IMPRESSION: 1. Suboptimal examination without IV contrast. The examination is also degraded by motion artifact. 2. There is an acute to subacute appearing compression fracture of L5 with [id number] loss of h eight. Correlate for point tenderness. 3. Right-sided nephrolithiasis. 4. There is no bowel obstruction. 5. There is underdistention versus mild wall thickening of the colon. Correlate clinically for eviden ce of a nonspecific colitis. 6. Bladder distention. 7. Additional findings as above. ACT 112: Negative or not required by law. Electronically signed by: Dev Burden M.D. 03/07/2020 5:10 PM
[2020-03-07] MEDS: INSULIN REGULAR 250 UNITS in SODIUM CHLORIDE 0.9% 247.5 ML IV SCH (18:19)
[2020-03-07] MEDS ORDERED: ACETAMINOPHEN 500 MG TAB PO PRN (19:07)
[2020-03-07] MEDS ORDERED: ACETAMINOPHEN 325 MG TAB PO PRN (19:07)
[2020-03-07] MEDS ORDERED: PIPERACILL/TAZOBAC CONSULT ACTIVE PRN (19:07)
[2020-03-07] MEDS ORDERED: INSULIN REGULAR 250 UNITS in SODIUM CHLORIDE 0.9% 247.5 ML IV SCH (19:07)
[2020-03-07] MEDS ORDERED: PROCHLORPERAZINE MALEATE 5 MG TAB PO PRN (19:07)
[2020-03-07] MEDS ORDERED: HydrALAZINE HCL 20 MG/ML VIAL IV PRN (19:07)
[2020-03-07] MEDS ORDERED: MODERATE STRESS LEVEL ONE (19:45)
[2020-03-07] MEDS ORDERED: INSULIN PROTOCOL GOAL RANGE ONE (19:45)
[2020-03-07] MEDS ORDERED: PHARMACY GLYCEMIC MGMT CONSULT PRN (19:49)
[2020-03-07] MEDS ORDERED: PIPERACILLIN/TAZOBACTAM 3.375 GM in DEXTROSE 5% 100 ML/100 ML BAG IV ONE (20:00)
[2020-03-07] MEDS ORDERED: PNEUMOCOCCAL ADMINISTRATION CHARGE ONE (20:02)
[2020-03-07] MEDS ORDERED: PNEUMOCOCCAL POLYSACCHARIDES 25 MCG/0.5 ML VIAL/SYR IM ONE (20:02)
[2020-03-07 20:36] LABS: BUN Creatinine Ratio 8.5 (10-20); Calcium 8.2 mg/dl (8.5-10.1); Est GFR (African American) 6.5; Est GFR (Non-African American) 5.6; Magnesium 2.7 mg/dl (1.8-2.4); Phosphorus 9.5 mg/dl (2.5-4.9); Potassium 3.8 mmol/L (3.5-5.1)
[2020-03-07] MEDS: METOCLOPRAMIDE HCL INJ 5 MG/ML 2 ML VIAL IV PRN (20:42)
[2020-03-07] MEDS: POTASSIUM CHLORIDE 40 MEQ in SODIUM CHLORIDE 0.9% 1000ML 1,000 ML IV SCH (20:42)
[2020-03-07 21:19] LABS: Beta-Hydroxybutyrate 84.45 mg/dl (0.2-2.81)
[2020-03-07] MEDS: carvediloL 25 MG TAB PO SCH (21:58)
[2020-03-07] MEDS: INSULIN ASPART 100 UNITS/ML 3 ML PEN SC SCH (21:59)
[2020-03-07] MEDS: PANTOprazole 40 MG TAB PO SCH (21:59)
[2020-03-07] MEDS: ONDANSETRON INJ 2 MG/ML 2 ML VIAL IV PRN (22:02)
[2020-03-07 23:41] LABS: BUN Creatinine Ratio 9.1 (10-20); Est GFR (African American) 6.5; Est GFR (Non-African American) 5.6; Magnesium 2.5 mg/dl (1.8-2.4); Phosphorus 8.6 mg/dl (2.5-4.9)
[2020-03-07 23:56] LABS: Beta-Hydroxybutyrate 23.28 mg/dl (0.2-2.81)
[2020-03-08 03:19] LABS: Hematocrit (blood only) 32.3 % (42-52); Hemoglobin 10.8 g/dL (14.0-18.0); Mean Corpuscular Hemoglobin 32.7 pg (25-34); Mean Corpuscular Hgb Conc 33.4 g/dL (32-36); Mean Corpuscular Volume 97.9 fL (80-100); Mean Platelet Volume 8.7 fL (7.4-10.4); Platelet Count 290 K/uL (130-400); RDW Coefficient of Variation 12.7 % (11.5-14.5); RDW Standard Deviation 45.1 fL (36.4-46.3); White Blood Count 20.37 K/uL (4.8-10.8)
[2020-03-08] MEDS: METOCLOPRAMIDE HCL INJ 5 MG/ML 2 ML VIAL IV PRN (03:22)
[2020-03-08 03:46] LABS: BUN Creatinine Ratio 8.6 (10-20); Calcium 7.4 mg/dl (8.5-10.1); Creatinine Clr Calc Pharmacy 7.9 ml/min; Est GFR (African American) 6.4; Est GFR (Non-African American) 5.5; Magnesium 2.4 mg/dl (1.8-2.4); Phosphorus 7.3 mg/dl (2.5-4.9); Potassium 4.3 mmol/L (3.5-5.1)
[2020-03-08] MEDS: PIPERACILLIN/TAZOBACTAM 3.375 GM in DEXTROSE 5% 100 ML IV SCH ×2 (04:52→16:50)
[2020-03-08] MEDS: POTASSIUM CHLORIDE 40 MEQ in SODIUM CHLORIDE 0.9% 1000ML 1,000 ML IV SCH (04:52)
--- NOTE | 2020-03-08 06:06 | Electrocardiogram Report ---
Test Reason : Blood Pressure : / mmHG Vent. Rate : 096 BPM Atrial Rate : 096 BPM P-R Int : 192 ms QRS Dur : 100 ms QT Int : 402 ms P-R-T Axes : 061 053 045 degrees QTc Int : 507 ms Normal sinus rhythm Possible Left atrial enlargement Nonspecific ST abnormality Prolonged QT Abnormal ECG When compared with ECG of 02-JAN-2020 06:38, Non-specific change in ST segment in Lateral leads Nonspecific T wave abnormality no longer evident in Lateral leads Confirmed by Travon Ayala ([id number]) on 03/08/2020 6:06:00 AM Referred By: REFERRED SELF Confirmed By:Travon Ayala
[2020-03-08] MEDS: INSULIN ASPART 100 UNITS/ML 3 ML PEN SC SCH ×4 (08:01→20:42)
[2020-03-08 08:31] LABS: BUN Creatinine Ratio 8.4 (10-20); Creatinine Clr Calc Pharmacy 7.7 ml/min; Est GFR (African American) 6.2; Est GFR (Non-African American) 5.3; Magnesium 2.5 mg/dl (1.8-2.4); Phosphorus 7.5 mg/dl (2.5-4.9); Potassium 4.4 mmol/L (3.5-5.1)
[2020-03-08] MEDS: NEPHROCAPS PO SCH (08:32)
[2020-03-08] MEDS: ATORVASTATIN 10 MG TAB PO SCH (08:32)
[2020-03-08] MEDS: PANTOprazole 40 MG TAB PO SCH (08:32)
[2020-03-08] MEDS: carvediloL 25 MG TAB PO SCH ×2 (08:32→20:41)
[2020-03-08] MEDS: BuPROPion SR 100 MG TABCR PO SCH (08:33)
[2020-03-08] MEDS: SERTRALINE HCL 100 MG TABLET PO SCH (08:33)
[2020-03-08] MEDS: ONDANSETRON INJ 2 MG/ML 2 ML VIAL IV PRN ×3 (08:51→19:47)
[2020-03-08] MEDS ORDERED: LOSARTAN POTASSIUM 25 MG TAB PO SCH (09:00)
--- NOTE | 2020-03-08 09:04 | Nephrology Consultation ---
Date of Consultation March 08, 2020 Assessment & Plan (1) ESRD on dialysis: MWF HD w/ acceptable chemistries and HTN urgency. while latter can reflect vol OL in HD, here would focus on managing medically. had full HD 02/25. -HD tomorrow per routine -pls work w/ case mgt to avoid day of d/c inpatient dialysis if possible Present on Admission?: Yes (2) Hypertensive urgency: Systolic blood pressures running the 170s to 200s since admission. This in the setting of intractable nausea and vomiting, so oral medications not a good option here, though jorge gacting BB not available IV -agree w/ holding/minimizing IV fluids in this anuric dialysis pt -stopped losartan for now -standing order in for enaliprilat 2.5 mg IV q6h hold for SBP < 110 and prn SBP >180 1.25 mg Q4h -ordered standing hydralazine 10 mg IV q8h hold for SBP <110 and cont current order prn sbp > 180 q6h -ordered prn labetalol for sbp >180, hold HR <60 q8h 10 mg -Goal systolic blood pressure is 140s to 160s today -Defer to primary service to continue efforts to control nausea and vomiting as well as anxiety which can also worsen his hypertension Present on Admission?: Yes (3) Anemia of chronic disease: manage at dialysis; pls check hgb daily at least w/ report of coffee ground emesis; f/u GI c/s Present on Admission?: Yes (4) DKA (diabetic ketoacidoses): per primary service -minimize IVF as above Present on Admission?: Yes History of Present Illness Reason for Consultation: ESRD on HD Requesting Physician: Dr Greenberg Attending Physician: Maninder Greenberg, DO History of Present Illness 49-year-old male whom I am asked to evaluate for dialysis needs after he was admitted yesterday for intractable nausea and vomiting with coffee-ground emesis in the setting of DKA. His systolic blood pressures have also been elevated in the 1 70-200 range. Past medical history includes diabetes complicated by gastroparesis and proliferative retinopathy, hypertension, depression/anxiety, ESRD on Thursday hemodialysis. He dialyzes under my care at [facility] via AV fistula. he reports coffee ground emesis x 3 episodes yesterday; still w/ N but reports it's improving a bit now. no sob, no diarrhea, no chest pain, no CHANEL, no focal numbness/weakness Allergies Allergy/AdvReac Type Severity Reaction Status Date / Time shellfish derived Allergy Severe anaphylaxis Verified 03/07/20 14:40 codeine Allergy Intermediate Hives Verified 03/07/20 14:40 promethazine Allergy Intermediate itchy/hives Verified 03/07/20 14:40 Home Medications Home Medications Medication Instructions Recorded Confirmed Type [place] Caps 1 cap PO QAM 12/19/18 03/07/20 History sertraline 100 mg PO QAM 03/21/19 03/07/20 History bupropion HCl 100 mg tablet,12 hr 100 mg PO QAM ea 04/14/19 03/07/20 History sustained-release carvedilol 25 mg tablet 25 mg PO BID tab 06/16/19 03/07/20 History atorvastatin 10 mg PO QAM 06/21/19 03/07/20 History losartan 75 mg PO QAM 06/21/19 03/07/20 History acetaminophen [Acetaminophen Extra 500 mg PO Q6H PRN MDD 3000 MG/DAY 07/13/19 03/07/20 History Strength] lorazepam 0.5 mg tablet 0.5 mg PO Q12 PRN tab 07/25/19 03/07/20 History Contour Next Test Strips #300 ea NS 10/26/19 03/05/20 Rx prochlorperazine maleate 5 mg PO Q8H PRN #10 tab 01/03/20 03/07/20 Rx pen needle, diabetic 32 gauge x #500 ea 01/25/20 03/05/20 Rx 5/32" insulin aspart U-100 [Novolog 1 unit SUBCUT UD PRN 02/01/20 03/07/20 History Flexpen U-100 Insulin] sucroferric oxyhydroxide [Velphoro] 500 mg PO AC 02/01/20 03/07/20 History insulin glargine [Basaglar KwikPen 14 unit SUBCUT DAILY 03/06/20 03/07/20 History U-100 Insulin] famotidine 20 mg PO MOWEFR 03/07/20 03/07/20 History Patient History Medical History Anxiety AV fistula left arm CAD (coronary artery disease) mild, non-obstructive CAD per 10/2018 cardiac cath> [facility] Depression Diabetes mellitus type I Diabetic neuropathy Diabetic retinopathy Dialysis patient ESRD (end stage renal disease) M,W,F (Follows with Dr. Taylor Higgins; [facility]/[place]) Gastroparesis GERD (gastroesophageal reflux disease) Hypertension Kidney stones Surgical History H/O shoulder surgery RIGHT History of appendectomy History of cardiac cath 10/2018= no stents, no obstructive disease (at [facility]) History of esophagogastroduodenoscopy (EGD) History of hip surgery left HIP ARTHROSCOPY History of lithotripsy History of open reduction and internal fixation (ORIF) procedure right hip Nausea and vomiting after administration of anesthetic agent Permanent central venous catheter in place Permacath and since has been removed Family History Grandfather Myocardial infarction Grandfather (Maternal) Family history of diabetes mellitus Uncle Myocardial infarction Denies family history of Colon cancer Ovarian cancer Prostate cancer Breast cancer Social History Smoking Status: Never smoker Second Hand Exposure: No; Do You Dip or Chew Tobacco: Yes; Hx Alcohol Use: No Hx Substance Use: No Preferred Language: Croatian Communication Ability: Effective Visual Impairment: No Limitations Hearing Ability: Normal 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 Required: No Beliefs That Will Affect Care: None marital status: Single Current Living Situation: Family current occupational status: disabled How many Children do You have: 2 Feels Safe at Home: Yes Safety Concerns: Feels Safe At This Time Childhood Exposure to Second-Hand Smoke: Yes Dental Care, Regularly: No Physical Activity Frequency: 1-2 Times per Week Seatbelt Use: always Sunscreen Use: No Assistive Devices: Glasses Review of Systems Review of Systems: All systems reviewed & are unremarkable except as noted in HPI & below Genitourinary: + problem reported (voids very small amount near daily/anuric) Physical Exam Constitutional: well developed, + thin and + in distress (slight w/ N) Eyes: EOM intact bilaterally ENMT: Ears: no external ear abnormality Nose: no external nose abnormality Mouth: + dry oral mucous membranes Neck: no nuchal rigidity Respiratory: normal respiratory effort Auscultation: lungs clear to auscultation bilaterally and + diminished lung sounds Cardiovascular: RRR, no murmur, no edema Extremities: + AV fistula (+t/b) Gastrointestinal (Abdomen): Inspection/Auscultation: normal bowel sounds Percussion/Palpation: abdomen soft; abdomen nontender Musculoskeletal: Extremities: strength 5/5 throughout Skin: no rashes, warm and dry Neurologic: spicer, fluent speech, no tremor Psychiatric: Orientation: alert and oriented x 3 Speech: normal rate/rhythm/volume of speech Affect: + flat affect Results & Data ([facility]) Vital Signs (Past 12 Hours) Vital Signs Temp Pulse Pulse Pulse Resp BP Pulse Ox 03/08/20 07:56 36.8 C 82 20 176/81 H 96 03/08/20 07:28 77 03/08/20 03:20 36.8 C 79 20 145/63 H 97 03/08/20 00:40 98 H 03/07/20 23:12 100 H 03/07/20 23:00 37.2 C 95 H 20 165/80 H 97 03/07/20 22:28 96 H 154/60 H Laboratory Results 03/08/20 03:10 03/08/20 07:24 Diagnostic Findings CXR > no acute CP ff CT abd/pelvis non con Lung bases: The heart is top normal in size and without pericardial effusion. The lung bases are clear. There is a small hiatal hernia. Liver: The unenhanced liver is normal in size, contour, and attenuation. There is no intrahepatic biliary ductal dilatation. Gallbladder: Unremarkable. Spleen: Normal in size and attenuation. Pancreas: The unenhanced pancreas is moderately atrophic and grossly unremarkable. Adrenal glands: Unremarkable. Kidneys: The unenhanced kidneys demonstrate cortical atrophy and are without hydronephrosis. There is a millimeter nonobstructing calculus in the lower pole of the right kidney. No left renal calculi are identified. There is no evidence of contour deforming renal mass lesion. Abdominal vasculature: The abdominal aorta is normal in course and caliber noting mild atherosclerotic calcification. Advanced atherosclerotic calcification is seen within the visualized lower extremity arteries. Bowel: There is no bowel obstruction. There are scattered colonic diverticula without CT evidence of acute diverticulitis. There is underdistention versus mild wall thickening of the colon. The appendix is surgically absent. Peritoneum: There is no intraperitoneal free air or abdominal ascites. Lymphadenopathy: None. Pelvic viscera: The prostate gland is mildly enlarged and heterogeneous. The bladder is distended. The bladder wall appears mildly thickened and trabeculated suggesting chronic outlet obstruction. Skeletal structures: The skeletal structures are osteopenic. There is an acute to subacute appearing compression fracture of L5 with mild to moderate loss of height. Chronic compression deformity is noted involving T11 and T12. No lytic or blastic lesions are seen. Intertrochanteric and intramedullary nails are present in the right hip. IMPRESSION: 1. Suboptimal examination without IV contrast. The examination is also degraded by motion artifact. 2. There is an acute to subacute appearing compression fracture of L5 with [id number] loss of height. Correlate for point tenderness. 3. Right-sided nephrolithiasis. 4. There is no bowel obstruction. 5. There is underdistention versus mild wall thickening of the colon. Correlate clinically for evidence of a nonspecific colitis. 6. Bladder distention. 7. Additional findings as above. (1) DKA (diabetic ketoacidoses) Diabetes mellitus complication detail: without coma Diabetes mellitus type: other specified (including DIANE) Qualified Code(s): E13.10 - Other specified diabetes mellitus with ketoacidosis without coma
[2020-03-08] MEDS: PANTOprazole 40 MG in SYRINGE 0 ML IV SCH ×2 (09:13→20:42)
[2020-03-08] MEDS ORDERED: ENALAPRILAT 1.25 MG in DEXTROSE 5% 25 ML IV PRN (09:30)
[2020-03-08] MEDS ORDERED: LABETALOL HCL IV 5 MG/ML 20ML IV PRN (09:30)
[2020-03-08] MEDS: ENALAPRILAT 2.5 MG in DEXTROSE 5% 25 ML IV SCH ×3 (09:34→21:33)
[2020-03-08] MEDS ORDERED: METOCLOPRAMIDE HCL INJ 5 MG/ML 2 ML VIAL IV STA (09:53)
--- NOTE | 2020-03-08 09:56 | Gastrointestinal Consultation ---
Date of Consultation March 08, 2020 Assessment & Plan (1) Acute blood loss anemia: (2) Hematemesis: (3) Gastroparesis: 1. NPO for now. 2. EGD with Dr. Tirado for further evaluation of symptoms. 3. Continue Pantoprazole 40 mg IV BID. 4. Additional recommendations pending results of testing. Thank you for allowing us to participate in the care of this pleasant patient. If you have any questions or concerns, please do not hesitate to contact us. Supervising Physician Co-Signing Physician Notes I personally evaluated the patient and agree with the findings as documented by RADHIKA Dee Exam: abd: soft, nt, nd Proceed with EGD. risks/benefits and procedure discussed with patient, who agrees to proceed History of Present Illness Reason for Consultation: Hematemesis Requesting Physician: RADHIKA Schulz Attending Physician: Maninder Greenberg DO History of Present Illness Patient is a pleasant 49 year-old male with a history of DM type I, ESRD on hemodialysis, GERD and gastroparesis admitted with n/v and hematemesis. States he did have a previous episode of coffee-ground emesis in the past without any identifiable source. In regard to the gastroparesis, states is fairly well controlled. Denies any significant n/v, early satiety or abdominal pain prior to arrival. Last emesis was last evening. Denies any diarrhea, constipation, melena or hematochezia. H&H on arrival was noted to be 13.2/39.6 and has since dropped to 10.8/32.3 this morning. Remains on Protonix 40 mg IV BID. Reglan 5 mg q 6 hours PRN has been ordered. Denies any dysphagia, odynophagia, chest pain, palpitations, shortness of breath, cough, fever, chills or malaise. Allergies Allergy/AdvReac Type Severity Reaction Status Date / Time shellfish derived Allergy Severe anaphylaxis Verified 03/07/20 14:40 codeine Allergy Intermediate Hives Verified 03/07/20 14:40 promethazine Allergy Intermediate itchy/hives Verified 03/07/20 14:40 Home Medications Home Medications Medication Instructions Recorded Confirmed Type [place] Caps 1 cap PO QAM 12/19/18 03/07/20 History sertraline 100 mg PO QAM 03/21/19 03/07/20 History bupropion HCl 100 mg tablet,12 hr 100 mg PO QAM ea 04/14/19 03/07/20 History sustained-release carvedilol 25 mg tablet 25 mg PO BID tab 06/16/19 03/07/20 History atorvastatin 10 mg PO QAM 06/21/19 03/07/20 History losartan 75 mg PO QAM 06/21/19 03/07/20 History acetaminophen [Acetaminophen Extra 500 mg PO Q6H PRN MDD 3000 MG/DAY 07/13/19 03/07/20 History Strength] lorazepam 0.5 mg tablet 0.5 mg PO Q12 PRN tab 07/25/19 03/07/20 History Contour Next Test Strips #300 ea NS 10/26/19 03/05/20 Rx prochlorperazine maleate 5 mg PO Q8H PRN #10 tab 01/03/20 03/07/20 Rx pen needle, diabetic 32 gauge x #500 ea 01/25/20 03/05/20 Rx 32" insulin aspart U-100 [Novolog 1 unit SUBCUT UD PRN 02/01/20 03/07/20 History Flexpen U-100 Insulin] sucroferric oxyhydroxide [Velphoro] 500 mg PO AC 02/01/20 03/07/20 History insulin glargine [Basaglar KwikPen 14 unit SUBCUT DAILY 03/06/20 03/07/20 History U-100 Insulin] famotidine 20 mg PO MOWEFR 03/07/20 03/07/20 History Patient History Medical History Anxiety AV fistula left arm CAD (coronary artery disease) mild, non-obstructive CAD per 10/2018 cardiac cath> [facility] Depression Diabetes mellitus type I Diabetic neuropathy Diabetic retinopathy Dialysis patient ESRD (end stage renal disease) M,W,F (Follows with Dr. Taylor Higgins; [facility]) Gastroparesis GERD (gastroesophageal reflux disease) Hypertension Kidney stones Surgical History H/O shoulder surgery RIGHT History of appendectomy History of cardiac cath 10/2018= no stents, no obstructive disease (at [facility]) History of esophagogastroduodenoscopy (EGD) History of hip surgery left HIP ARTHROSCOPY History of lithotripsy History of open reduction and internal fixation (ORIF) procedure right hip Nausea and vomiting after administration of anesthetic agent Permanent central venous catheter in place Permacath and since has been removed Family History Grandfather Myocardial infarction Grandfather (Maternal) Family history of diabetes mellitus Uncle Myocardial infarction Denies family history of Colon cancer Ovarian cancer Prostate cancer Breast cancer Social History Smoking Status: Never smoker Second Hand Exposure: No; Do You Dip or Chew Tobacco: Yes; Hx Alcohol Use: No Hx Substance Use: No Preferred Language: Nepali Communication Ability: Effective Visual Impairment: No Limitations Hearing Ability: Normal Harpsichord Maker Required: No Beliefs That Will Affect Care: None marital status: Single Current Living Situation: Family current occupational status: disabled How many Children do You have: 2 Feels Safe at Home: Yes Safety Concerns: Feels Safe At This Time Childhood Exposure to Second-Hand Smoke: Yes Dental Care, Regularly: No Physical Activity Frequency: 1-2 Times per Week Seatbelt Use: always Sunscreen Use: No Assistive Devices: Glasses Review of Systems Review of Systems: All systems reviewed & are unremarkable except as noted in HPI & below Physical Exam Constitutional: WD/WN, vitals as above well developed and well nourished Eyes: EOM intact bilaterally Neck: normal visual inspection Respiratory: normal respiratory effort, lungs clear to auscultation Cardiovascular: RRR, no murmur, no edema Gastrointestinal (Abdomen): normal bowel sounds, soft, nontender, no hepatosplenomegaly Musculoskeletal: Extremities: extremities normal to inspection Skin: no rashes, warm and dry Psychiatric: A+Ox3, euthymic affect Results & Data ([facility]) Vital Signs (Past 12 Hours) Vital Signs Temp Pulse Pulse Pulse Resp BP Pulse Ox 03/08/20 09:38 77 03/08/20 09:24 135/64 03/08/20 07:56 36.8 C 82 20 176/81 H 96 03/08/20 07:28 77 03/08/20 03:20 36.8 C 79 20 145/63 H 97 03/08/20 00:40 98 H 03/07/20 23:12 100 H 03/07/20 23:00 37.2 C 95 H 20 165/80 H 97 03/07/20 22:28 96 H 154/60 H Laboratory Results Abnormal lab results 03/07/20 03/07/20 03/07/20 Range/Units 14:00 14:04 15:15 WBC 25.56 H D (4.8-10.8) K/uL RBC 4.02 L (4.7-6.1) M/uL Hgb 13.2 L (14.0-18.0) g/dL Hct 39.6 L (42-52) % Neut # (Auto) 23.47 H (1.4-6.5) K/uL Lymph # (Auto) 0.81 L (1.2-3.4) K/uL [place] # (Auto) 1.18 H (0.11-0.59) K/uL Immature Gran # (Auto) 0.09 H (0.00-0.02) K/uL VBG pH (7.36-7.41) Sodium 133 L (136-145) mmol/L Chloride 89 L (98-107) mmol/L Carbon Dioxide 15 L (21-32) mmol/L Anion Gap 29.0 H (3-11) BUN 76 H (7-18) mg/dl Creatinine 9.04 H* D (0.6-1.4) mg/dl BUN/Creatinine Ratio 8.4 L (10-20) Glucose 416 H* (70-99) mg/dl POC Glucose (70-99) mg/dl Calcium (8.5-10.1) mg/dl Phosphorus (2.5-4.9) mg/dl Magnesium (1.8-2.4) mg/dl AST 13 L (15-37) U/L Beta-Hydroxybutyric Acd 91.01 H (0.2-2.81) mg/dl 03/07/20 03/07/20 03/07/20 Range/Units 18:02 19:15 19:16 WBC (4.8-10.8) K/uL RBC (4.7-6.1) M/uL Hgb (14.0-18.0) g/dL Hct (42-52) % Neut # (Auto) (1.4-6.5) K/uL Lymph # (Auto) (1.2-3.4) K/uL [place] # (Auto) (0.11-0.59) K/uL Immature Gran # (Auto) (0.00-0.02) K/uL VBG pH (7.36-7.41) Sodium (136-145) mmol/L Chloride (98-107) mmol/L Carbon Dioxide (21-32) mmol/L Anion Gap (3-11) BUN (7-18) mg/dl Creatinine (0.6-1.4) mg/dl BUN/Creatinine Ratio (10-20) Glucose (70-99) mg/dl POC Glucose 510 H* 505 H* 509 H* (70-99) mg/dl Calcium (8.5-10.1) mg/dl Phosphorus (2.5-4.9) mg/dl Magnesium (1.8-2.4) mg/dl AST (15-37) U/L Beta-Hydroxybutyric Acd (0.2-2.81) mg/dl 03/07/20 03/07/20 03/07/20 Range/Units 19:26 19:26 20:24 WBC (4.8-10.8) K/uL RBC (4.7-6.1) M/uL Hgb (14.0-18.0) g/dL Hct (42-52) % Neut # (Auto) (1.4-6.5) K/uL Lymph # (Auto) (1.2-3.4) K/uL [place] # (Auto) (0.11-0.59) K/uL Immature Gran # (Auto) (0.00-0.02) K/uL VBG pH 7.24 L (7.36-7.41) Sodium 133 L (136-145) mmol/L Chloride 92 L (98-107) mmol/L Carbon Dioxide 15 L (21-32) mmol/L Anion Gap 26.0 H (3-11) BUN 83 H (7-18) mg/dl Creatinine 9.77 H* D (0.6-1.4) mg/dl BUN/Creatinine Ratio 8.5 L (10-20) Glucose 484 H* (70-99) mg/dl POC Glucose 451 H* (70-99) mg/dl Calcium 8.2 L (8.5-10.1) mg/dl Phosphorus 9.5 H (2.5-4.9) mg/dl Magnesium 2.7 H (1.8-2.4) mg/dl AST (15-37) U/L Beta-Hydroxybutyric Acd 84.45 H (0.2-2.81) mg/dl 03/07/20 03/07/20 03/07/20 Range/Units 20:25 21:29 22:24 WBC (4.8-10.8) K/uL RBC (4.7-6.1) M/uL Hgb (14.0-18.0) g/dL Hct (42-52) % Neut # (Auto) (1.4-6.5) K/uL Lymph # (Auto) (1.2-3.4) K/uL [place] # (Auto) (0.11-0.59) K/uL Immature Gran # (Auto) (0.00-0.02) K/uL VBG pH (7.36-7.41) Sodium (136-145) mmol/L Chloride (98-107) mmol/L Carbon Dioxide (21-32) mmol/L Anion Gap (3-11) BUN (7-18) mg/dl Creatinine (0.6-1.4) mg/dl BUN/Creatinine Ratio (10-20) Glucose (70-99) mg/dl POC Glucose 454 H* 456 H* 375 H* (70-99) mg/dl Calcium (8.5-10.1) mg/dl Phosphorus (2.5-4.9) mg/dl Magnesium (1.8-2.4) mg/dl AST (15-37) U/L Beta-Hydroxybutyric Acd (0.2-2.81) mg/dl 03/07/20 03/07/20 03/08/20 Range/Units 22:50 23:37 00:30 WBC (4.8-10.8) K/uL RBC (4.7-6.1) M/uL Hgb (14.0-18.0) g/dL Hct (42-52) % Neut # (Auto) (1.4-6.5) K/uL Lymph # (Auto) (1.2-3.4) K/uL [place] # (Auto) (0.11-0.59) K/uL Immature Gran # (Auto) (0.00-0.02) K/uL VBG pH (7.36-7.41) Sodium 134 L (136-145) mmol/L Chloride 95 L (98-107) mmol/L Carbon Dioxide (21-32) mmol/L Anion Gap 19.0 H (3-11) BUN 89 H (7-18) mg/dl Creatinine 9.76 H* (0.6-1.4) mg/dl BUN/Creatinine Ratio 9.1 L (10-20) Glucose 380 H* (70-99) mg/dl POC Glucose 347 H* 323 H* (70-99) mg/dl Calcium 8.0 L (8.5-10.1) mg/dl Phosphorus 8.6 H (2.5-4.9) mg/dl Magnesium 2.5 H (1.8-2.4) mg/dl AST (15-37) U/L Beta-Hydroxybutyric Acd 23.28 H (0.2-2.81) mg/dl 03/08/20 03/08/20 03/08/20 Range/Units 01:36 03:10 03:10 WBC 20.37 H (4.8-10.8) K/uL RBC 3.30 L (4.7-6.1) M/uL Hgb 10.8 L (14.0-18.0) g/dL Hct 32.3 L (42-52) % Neut # (Auto) (1.4-6.5) K/uL Lymph # (Auto) (1.2-3.4) K/uL [place] # (Auto) (0.11-0.59) K/uL Immature Gran # (Auto) (0.00-0.02) K/uL VBG pH (7.36-7.41) Sodium (136-145) mmol/L Chloride (98-107) mmol/L Carbon Dioxide (21-32) mmol/L Anion Gap 12.0 H (3-11) BUN 85 H (7-18) mg/dl Creatinine 9.89 H* (0.6-1.4) mg/dl BUN/Creatinine Ratio 8.6 L (10-20) Glucose 183 H (70-99) mg/dl POC Glucose 272 H (70-99) mg/dl Calcium 7.4 L (8.5-10.1) mg/dl Phosphorus 7.3 H (2.5-4.9) mg/dl Magnesium (1.8-2.4) mg/dl AST (15-37) U/L Beta-Hydroxybutyric Acd (0.2-2.81) mg/dl 03/08/20 03/08/20 03/08/20 Range/Units 03:27 04:58 05:48 WBC (4.8-10.8) K/uL RBC (4.7-6.1) M/uL Hgb (14.0-18.0) g/dL Hct (42-52) % Neut # (Auto) (1.4-6.5) K/uL Lymph # (Auto) (1.2-3.4) K/uL [place] # (Auto) (0.11-0.59) K/uL Immature Gran # (Auto) (0.00-0.02) K/uL VBG pH (7.36-7.41) Sodium (136-145) mmol/L Chloride (98-107) mmol/L Carbon Dioxide (21-32) mmol/L Anion Gap (3-11) BUN (7-18) mg/dl Creatinine (0.6-1.4) mg/dl BUN/Creatinine Ratio (10-20) Glucose (70-99) mg/dl POC Glucose 153 H 111 H 184 H (70-99) mg/dl Calcium (8.5-10.1) mg/dl Phosphorus (2.5-4.9) mg/dl Magnesium (1.8-2.4) mg/dl AST (15-37) U/L Beta-Hydroxybutyric Acd (0.2-2.81) mg/dl 03/08/20 03/08/20 03/08/20 Range/Units 06:31 07:24 07:44 WBC (4.8-10.8) K/uL RBC (4.7-6.1) M/uL Hgb (14.0-18.0) g/dL Hct (42-52) % Neut # (Auto) (1.4-6.5) K/uL Lymph # (Auto) (1.2-3.4) K/uL [place] # (Auto) (0.11-0.59) K/uL Immature Gran # (Auto) (0.00-0.02) K/uL VBG pH (7.36-7.41) Sodium (136-145) mmol/L Chloride (98-107) mmol/L Carbon Dioxide (21-32) mmol/L Anion Gap 14.0 H (3-11) BUN 86 H (7-18) mg/dl Creatinine 10.20 H* D (0.6-1.4) mg/dl BUN/Creatinine Ratio 8.4 L (10-20) Glucose 169 H (70-99) mg/dl POC Glucose 173 H 165 H (70-99) mg/dl Calcium 8.0 L (8.5-10.1) mg/dl Phosphorus 7.5 H (2.5-4.9) mg/dl Magnesium 2.5 H (1.8-2.4) mg/dl AST (15-37) U/L Beta-Hydroxybutyric Acd (0.2-2.81) mg/dl 03/08/20 Range/Units 08:27 WBC (4.8-10.8) K/uL RBC (4.7-6.1) M/uL Hgb (14.0-18.0) g/dL Hct (42-52) % Neut # (Auto) (1.4-6.5) K/uL Lymph # (Auto) (1.2-3.4) K/uL [place] # (Auto) (0.11-0.59) K/uL Immature Gran # (Auto) (0.00-0.02) K/uL VBG pH (7.36-7.41) Sodium (136-145) mmol/L Chloride (98-107) mmol/L Carbon Dioxide (21-32) mmol/L Anion Gap (3-11) BUN (7-18) mg/dl Creatinine (0.6-1.4) mg/dl BUN/Creatinine Ratio (10-20) Glucose (70-99) mg/dl POC Glucose 158 H (70-99) mg/dl Calcium (8.5-10.1) mg/dl Phosphorus (2.5-4.9) mg/dl Magnesium (1.8-2.4) mg/dl AST (15-37) U/L Beta-Hydroxybutyric Acd (0.2-2.81) mg/dl PG Care Time/CCT Total # of Minutes Spent Total Time Spent with Patient: Total time spent is greater than 50% in coordination of care (as documented) at patient's floor/unit and/or counseling patient: Coding Level of Care Code 08666 Initial Inpt Care Lvl 3 Diagnoses Acute blood loss anemia D62 Hematemesis K92.0 Nausea presence: with nausea Gastroparesis K31.84 (1) Hematemesis Nausea presence: with nausea Qualified Code(s): K92.0 - Hematemesis
--- NOTE | 2020-03-08 11:49 | Anesthesiology Consultation ---
Date of Service March 08, 2020 Assessment & Plan Chart Review Chart Review: Acceptable Risk for Surgery Consults Requested none History Surgery Operation Date: 03/08/20 16:55 Proposed Procedures p Esophagogastroduodenoscopy Dr. Candida Tirado MD Height/Weight Height: 5 ft 9 in Weight: 62 kg Allergies Allergy/AdvReac Type Severity Reaction Status Date / Time shellfish derived Allergy Severe anaphylaxis Verified 03/07/20 14:40 codeine Allergy Intermediate Hives Verified 03/07/20 14:40 promethazine Allergy Intermediate itchy/hives Verified 03/07/20 14:40 Medications Home Medications Medication Instructions Recorded Confirmed Last Taken [place] Caps 1 cap PO QAM 12/19/18 03/07/20 03/05/20 sertraline 100 mg PO QAM 03/21/19 03/07/20 03/05/20 bupropion HCl 100 mg tablet,12 hr 100 mg PO QAM ea 04/14/19 03/07/20 03/05/20 sustained-release carvedilol 25 mg tablet 25 mg PO BID tab 06/16/19 03/07/20 03/05/20 atorvastatin 10 mg PO QAM 06/21/19 03/07/20 03/05/20 losartan 75 mg PO QAM 06/21/19 03/07/20 03/05/20 acetaminophen [Acetaminophen Extra 500 mg PO Q6H PRN MDD 3000 MG/DAY 07/13/19 03/07/20 11/11/19 Strength] lorazepam 0.5 mg tablet 0.5 mg PO Q12 PRN tab 07/25/19 03/07/20 11/11/19 Contour Next Test Strips #300 ea NS 10/26/19 03/05/20 Unknown prochlorperazine maleate 5 mg PO Q8H PRN #10 tab 01/03/20 03/07/20 03/07/20 pen needle, diabetic 32 gauge x #500 ea 01/25/20 03/05/20 Unknown " insulin aspart U-100 [Novolog 1 unit SUBCUT UD PRN 02/01/20 03/07/20 03/07/20 Flexpen U-100 Insulin] sucroferric oxyhydroxide [Velphoro] 500 mg PO AC 02/01/20 03/07/20 03/05/20 insulin glargine [Basaglar KwikPen 14 unit SUBCUT DAILY 03/06/20 03/07/20 03/07/20 U-100 Insulin] famotidine 20 mg PO MOWEFR 03/07/20 03/07/20 03/05/20 Active Medications Generic Name Dose Route Start Last Admin Trade Name Freq PRN Reason Stop Dose Admin Atorvastatin Calcium 10 mg 03/08/20 09:00 03/08/20 08:32 Atorvastatin 10 Mg Tab PO 04/07/20 08:59 10 mg QAM JACKI Administration Bupropion HCl 100 mg 03/08/20 09:00 03/08/20 08:33 Bupropion Sr 100 Mg Tabcr PO 04/07/20 08:59 100 mg QAM JACKI Administration Carvedilol 25 mg 03/07/20 21:00 03/08/20 08:32 Carvedilol 25 Mg Tab PO 04/06/20 20:59 25 mg BID JACKI Administration Dextrose 25 - 50 ml 03/07/20 16:45 03/08/20 05:33 Dextrose 50% 50 Ml Syringe IV 04/06/20 16:44 50 ml UD PRN Administration Hypoglycemia Protocol Protocol Insulin Human Regular 250 250 mls @ 1 mls/hr 03/07/20 16:45 03/08/20 10:40 units/ Sodium Chloride IV 04/06/20 16:44 1 units/hr .Q24H JACKI 1 mls/hr Titration Protocol 1 UNITS/HR Piperacillin Sod/Tazobactam 115 mls @ 28.75 mls/hr 03/08/20 05:00 03/08/20 09:01 Sod 3.375 gm/ Dextrose IV 03/10/20 04:59 Infused Q12H JACKI Infusion Protocol Pantoprazole Sodium 40 mg/ 10 mls @ 5 mls/min 03/08/20 09:00 03/08/20 09:13 Syringe IV 04/07/20 08:59 5 mls/min BID JACKI Administration Enalaprilat 2.5 mg/ Dextrose 27 mls @ 100 mls/hr 03/08/20 09:30 03/08/20 09:34 IV 04/07/20 09:29 Not Given Q6H JACKI Insulin Aspart 0 units 03/07/20 21:00 03/08/20 08:01 Insulin Aspart 100 Units/Ml 3 Ml Pen SC 04/06/20 20:59 Not Given ACHS JACKI Metoclopramide HCl 5 mg 03/07/20 19:07 03/08/20 03:22 Metoclopramide Hcl Inj 5 Mg/Ml 2 Ml Vial IV 04/06/20 19:06 5 mg Q6H PRN Administration nausea Miscellaneous 1 ea 03/08/20 00:00 03/08/20 08:01 Velphoro ~ Order Awaiting Action N/A 04/07/20 00:00 Not Given QS JACKI Ondansetron HCl 4 mg 03/07/20 21:21 03/08/20 08:51 Ondansetron Inj 2 Mg/Ml 2 Ml Vial IV 04/06/20 21:20 4 mg Q4H PRN Administration Nausea Sertraline HCl 100 mg 03/08/20 09:00 03/08/20 08:33 Sertraline Hcl 100 Mg Tablet PO 04/07/20 08:59 100 mg QAM JACKI Administration Vitamin B Complex/Folic Acid 1 cap 03/08/20 09:00 03/08/20 08:32 Nephrocaps PO 04/07/20 08:59 1 cap QAM JACKI Administration NPO Date Last Intake of Fluids: 03/07/20 Time Last Intake of Fluids: 23:30 Date Last Intake of Solids: 03/07/20 Time Last Intake of Solids: 23:30 Past Medical History Medical History Anxiety AV fistula left arm CAD (coronary artery disease) mild, non-obstructive CAD per 10/2018 cardiac cath> [facility] Depression Diabetes mellitus type I Diabetic neuropathy Diabetic retinopathy Dialysis patient ESRD (end stage renal disease) M,W,F (Follows with Dr. Taylor Higgins; [facility]) Gastroparesis GERD (gastroesophageal reflux disease) Hypertension Kidney stones Past Family History Family History Grandfather Myocardial infarction Grandfather (Maternal) Family history of diabetes mellitus Uncle Myocardial infarction Denies family history of Colon cancer Ovarian cancer Prostate cancer Breast cancer Past Surgical History Surgical History H/O shoulder surgery RIGHT History of appendectomy History of cardiac cath 10/2018= no stents, no obstructive disease (at [facility]) History of esophagogastroduodenoscopy (EGD) History of hip surgery left HIP ARTHROSCOPY History of lithotripsy History of open reduction and internal fixation (ORIF) procedure right hip Nausea and vomiting after administration of anesthetic agent Permanent central venous catheter in place Permacath and since has been removed Social History Smoking Status: Never smoker tobacco type: smokeless tobacco Do You Dip or Chew Tobacco: Yes Hx Alcohol Use: No alcohol intake frequency: holidays/special occasions only Hx Substance Use: No substance use type: does not use Physical Exam Vital Signs Last Vital Signs Temp 36.6 C 03/08/20 11:29 Pulse 73 03/08/20 11:29 Resp 18 03/08/20 11:29 BP 150/77 H 03/08/20 11:29 Pulse Ox 98 03/08/20 11:29 Testing Laboratory Results 03/08/20 03:10 Blood Type B Negative 03/07/20 15:15 Antibody Screen NEGATIVE 03/07/20 15:15 03/08/20 03/08/20 03/08/20 10:28 08:27 07:44 POC Glucose 152 H 158 H 165 H 03/08/20 03/08/20 03/08/20 06:31 05:48 05:24 POC Glucose 173 H 184 H 88 03/08/20 03/08/20 03/08/20 04:58 03:27 01:36 POC Glucose 111 H 153 H 272 H 03/08/20 00:30 POC Glucose 323 H*
[2020-03-08 12:02] LABS: BUN Creatinine Ratio 8.6 (10-20); Calcium 7.9 mg/dl (8.5-10.1); Creatinine Clr Calc Pharmacy 7.8 ml/min; Est GFR (African American) 6.2; Est GFR (Non-African American) 5.4; Magnesium 2.5 mg/dl (1.8-2.4); Phosphorus 6.8 mg/dl (2.5-4.9); Potassium 4.3 mmol/L (3.5-5.1)
--- NOTE | 2020-03-08 12:08 | Hospitalist Progress Note ---
Date of Service March 08, 2020 Assessment & Plan (1) Nausea and vomiting: Patient with history of severe gastroparesis with frequent admission for nausea and vomiting, presenting with coffee ground emesis prior to admission CT abd/pelvis performed in the ED showed nonspecific colitis and bladder distention Continue home prochlorperazine, will order reglan prn IV while npo Protonix 40 mg IV push bid Empiric Zosyn for wbcs 25.5 Consulted GI - for endoscopy today (2) Gastroparesis: As above (3) Acute blood loss anemia: With anemia of chronic disease associated with kidney disease Hgb decreased about 3g from admission EGD, pantoprazole as above (4) DKA (diabetic ketoacidoses): BSG 416, Bicarb 15, betahydroxybutyric acid 91 on admission. Now trending down. Continues to have anion gap, bicarb has normalized DKA order set - hold on further fluid due to ESRD Insulin gtt Consult pharmacy for glycemic management Last A1c was 6.7 (5) Hypertension: With hypertensive urgency in the ED - BP as high as 200s/100s - No chest pain, sob, headache Hold home losartan per nephrology and give IV enaliprilat 2.5 mg IV q6h, continue po Coreg PRN hydralazine, labetalol (6) Depression: Continue home sertraline and bupropion (7) ESRD on dialysis: Consulted nephrology- patient sees Dr. Guadalupe from [facility] - appreciate assistance Last dialysis 03/07 (8) Diabetes mellitus type I: Pharmacy diabetic consult, management as above (9) CAD (coronary artery disease): Continue home Coreg, atorvastatin (10) DVT prophylaxis: SCDs, hold chemoprophylaxis due to coffee ground emesis. Admission and Anticipated Discharge Date Admission Date: March 07, 2020 Subjective Mr. De Los Santos has not had any coffee ground emesis since yesterday. He reports nausea. No abdominal pain. ROS Constitutional: no chills, aches, sweats or fever Respiratory: no sob,cough, sputum, or wheezing Cardiac: no chest pain, palpitations, edema, orthopnea or lightheadedness GI:see HPI : no dysuria or hesitancy Extremities: no joint pain or weakness Skin: no rash All other systems reviewed and negative Physical Exam Physical Exam: General: no distress Eyes: normal inspection, PERLL Respiratory: chest non tender, clear to auscultation, normal breath sounds, no respiratory distress, no accessory muscle use Cardiac: regular rate and rhythm, no rub or gallop, no murmur, no edema, no jvd GI/: active bowel sounds, no abd pain or tenderness, soft, non distended Extremities: normal range of motion, normal strength, non tender Neuro/Psych: alert and oriented x 3, normal mood and affect Skin: normal color, dry Results & Data Results & Data ([facility]) Vital Signs (Past 12 Hours) Vital Signs Temp Pulse Pulse Resp BP Pulse Ox 03/08/20 11:29 36.6 C 73 18 150/77 H 98 03/08/20 11:15 36.6 C 74 20 120/63 98 03/08/20 09:38 77 03/08/20 09:24 135/64 03/08/20 07:56 36.8 C 82 20 176/81 H 96 03/08/20 07:28 77 03/08/20 03:20 36.8 C 79 20 145/63 H 97 03/08/20 00:40 98 H PG Care Time/CCT Total # of Minutes Spent Total Time Spent with Patient: Total time spent is greater than 50% in coordination of care (as documented) at patient's floor/unit and/or counseling patient: Coding Level of Care Code 22065 Subseq Hosp Care Lvl 3 Diagnoses Nausea and vomiting R11.2 Gastroparesis K31.84 Acute blood loss anemia D62 DKA (diabetic ketoacidoses) E13.10 Hypertension I10 Hypertension type: unspecified Depression F33.9 Depression Type: major depressive disorder Major depression recurrence: recurrent Active/Remission status: remission status unspecified ESRD on dialysis N18.6; Z99.2 Diabetes mellitus type I E10.9 CAD (coronary artery disease) I25.10 Coronary Disease-Associated Artery/Lesion type: [place] artery [place] vs. transplanted heart: [place] heart Associated angina: without angina DVT prophylaxis Z29.9 (1) Hypertension Hypertension type: unspecified Qualified Code(s): I10 - Essential (primary) hypertension (2) Depression Depression Type: major depressive disorder Major depression recurrence: recurrent Active/Remission status: remission status unspecified Qualified Code(s): F33.9 - Major depressive disorder, recurrent, unspecified (3) CAD (coronary artery disease) Coronary Disease-Associated Artery/Lesion type: [place] artery [place] vs. transplanted heart: [place] heart Associated angina: without angina Qualified Code(s): I25.10 - Atherosclerotic heart disease of [place] coronary artery without angina pectoris
[2020-03-08] MEDS ORDERED: LIDOCAINE HCL 2% 2 ML VIAL/AMP(20MG/ML) INFIL ONE (12:30)
[2020-03-08] MEDS ORDERED: PROPOFOL IV EMULSION 10 MG/ML 20 ML VIAL IV ONE (12:30)
--- NOTE | 2020-03-08 12:35 | Anesthesiology Progress Note ---
Date of Service March 08, 2020 Anesthesia Post Procedure Vital Signs Vital Signs: Temp Pulse Pulse Pulse Resp BP BP 03/08/20 11:29 36.6 C 73 18 150/77 H 03/08/20 11:15 36.6 C 74 20 120/63 03/08/20 09:38 77 03/08/20 09:24 135/64 03/08/20 07:56 36.8 C 82 20 176/81 H 03/08/20 07:28 77 03/08/20 03:20 36.8 C 79 20 145/63 H 03/08/20 00:40 98 H 03/07/20 23:12 100 H 03/07/20 23:00 37.2 C 95 H 20 165/80 H 03/07/20 22:28 96 H 154/60 H 03/07/20 19:24 36.4 C L 98 H 20 186/79 H 03/07/20 18:30 96 H 18 173/77 H 03/07/20 18:14 98 H 20 180/84 H 03/07/20 18:00 20 03/07/20 17:30 19 03/07/20 17:02 96 H 14 03/07/20 17:01 95 H 18 169/82 H 03/07/20 16:31 16 03/07/20 16:30 14 171/84 H 03/07/20 16:01 98 H 14 03/07/20 16:00 98 H 12 188/89 H 03/07/20 15:31 94 H 17 03/07/20 15:30 94 H 16 170/81 H 03/07/20 14:28 93 H 18 159/76 H 03/07/20 13:49 Pulse Ox 03/08/20 11:29 98 03/08/20 11:15 98 03/08/20 09:38 03/08/20 09:24 03/08/20 07:56 96 03/08/20 07:28 03/08/20 03:20 97 03/08/20 00:40 03/07/20 23:12 03/07/20 23:00 97 03/07/20 22:28 03/07/20 19:24 99 03/07/20 18:30 97 03/07/20 18:14 97 03/07/20 18:00 98 03/07/20 17:30 98 03/07/20 17:02 97 03/07/20 17:01 97 03/07/20 16:31 97 03/07/20 16:30 97 03/07/20 16:01 98 03/07/20 16:00 97 03/07/20 15:31 98 03/07/20 15:30 98 03/07/20 14:28 98 03/07/20 13:49 98 Transfer of Care Handoff Completed per policy Notes Mental Status: alert / awake / arousable and participated in evaluation Patient Amnestic to Procedure: Yes Nausea / Vomiting: adequately controlled Pain: adequately controlled Airway Patency, RR, SpO2: stable & adequate BP & HR: stable & adequate Hydration State: stable & adequate Anesthetic Complications: no major complications apparent
--- NOTE | 2020-03-08 12:58 | GI REPORT ---
Patient Name: Jorge Alberto De Los Santos Procedure Date: 03/08/2020 11:58 AM Date of : 1970 Admit Type: Inpatient Age: 49 Gender: Male Attending MD: Chip Tirado MD Procedure: Upper GI endoscopy Providers: Chip Tirado MD Referring MD: Maninder Greenberg Indications: Coffee-ground emesis Medicines: Monitored Anesthesia Care Complications: No immediate complications. Estimated blood loss: None. Estimated Blood Loss: Estimated blood loss: none. Procedure: Pre-Anesthesia Assessment: - Prior Anticoagulants: The patient has taken no previous anticoagulant or antiplatelet agents. - ASA Grade Assessment: II - A patient with mild systemic disease. After obtaining informed consent, the endoscope was passed under direct vision. Throughout the procedure, the patient's blood pressure, pulse, and oxygen saturations were monitored continuously. The Endoscope was introduced through the mouth, and advanced to the second part of duodenum. The upper GI endoscopy was accomplished without difficulty. The patient tolerated the procedure well. Findings: Severe esophagitis was found. Biopsies were taken with a cold forceps for histology. Estimated blood loss: none. Cells for cytology were obtained by brushing. Estimated blood loss: none. Mild inflammation characterized by erythema was found in the gastric antrum. The duodenal bulb and second portion of the duodenum were normal. No evidence of blood, ulcers, AVMs throughout entire exam. Impression: - Severe esophagitis. Biopsied. Cells for cytology obtained. - Gastritis. - Normal duodenal bulb and second portion of the duodenum. Recommendation: - Resume previous diet today. - Await pathology results. -if anemia persists/worsens will need colonoscopy, likely as an outpatient. - [facility]. Chip Tirado MD 03/08/2020 12:57:47 PM This report has been signed electronically. Note Initiated On: 03/08/2020 11:58 AM Number of Addenda: 0 I attest to the content of the Intraoperative Record and orders documented therein, exceptions below {[id number]}
[2020-03-08] MEDS: HydrALAZINE HCL 20 MG/ML VIAL IV SCH ×2 (13:42→22:03)
--- NOTE | 2020-03-08 15:03 | Pharmacy Report ---
Pharmacy Glycemic Short Note 2 - Date of Service March 08, 2020 - Glycemic Short BSG Results (Last 24 hours): 03/07/20 03/07/20 03/07/20 18:02 19:15 19:16 Glucose POC Glucose 510 H* 505 H* 509 H* 03/07/20 03/07/20 03/07/20 19:26 20:24 20:25 Glucose 484 H* POC Glucose 451 H* 454 H* 03/07/20 03/07/20 03/07/20 21:29 22:24 22:50 Glucose 380 H* POC Glucose 456 H* 375 H* 03/07/20 03/08/20 03/08/20 23:37 00:30 01:36 Glucose POC Glucose 347 H* 323 H* 272 H 03/08/20 03/08/20 03/08/20 03:10 03:27 04:58 Glucose 183 H POC Glucose 153 H 111 H 03/08/20 03/08/20 03/08/20 05:24 05:48 06:31 Glucose POC Glucose 88 184 H 173 H 03/08/20 03/08/20 03/08/20 07:24 07:44 08:27 Glucose 169 H POC Glucose 165 H 158 H 03/08/20 03/08/20 03/08/20 10:28 11:22 13:20 Glucose 130 H POC Glucose 152 H 134 H 03/08/20 14:43 Glucose POC Glucose 226 H OUTPATIENT ANTIDIABETIC REGIMEN: * Lantus 14 units Qam, novolog SSI ASSESSMENT: * Patient came in with N/V, severe gastroparesis, DKA and started on insulin drip * Pharmacy consulted for glycemic management. Patient known to service from other admissions. Typically has very labile BSGs * Continues on drip this AM, labs improved but continues NPO. Went for EGD this morning PLAN FOR INPATIENT GLYCEMIC CONTROL: * Continue insulin drip PLAN FOR DISCHARGE: * tbd
[2020-03-08 15:41] LABS: BUN Creatinine Ratio 8.7 (10-20); Calcium 7.4 mg/dl (8.5-10.1); Creatinine Clr Calc Pharmacy 7.9 ml/min; Est GFR (African American) 6.4; Est GFR (Non-African American) 5.5; Magnesium 2.3 mg/dl (1.8-2.4); Phosphorus 6.7 mg/dl (2.5-4.9); Potassium 4.5 mmol/L (3.5-5.1)
[2020-03-08] MEDS: INSULIN REGULAR 250 UNITS in SODIUM CHLORIDE 0.9% 247.5 ML IV SCH (17:12)
[2020-03-08] MEDS ORDERED: ACETAMINOPHEN 1,000 MG/100 ML VIAL IV PRN (20:07)
[2020-03-08] MEDS ORDERED: PROCHLORPERAZINE 10 MG in SYRINGE 8 ML IV ONE (22:28)
[2020-03-09] MEDS: ONDANSETRON INJ 2 MG/ML 2 ML VIAL IV PRN ×3 (01:10→19:49)
[2020-03-09] MEDS: METOCLOPRAMIDE HCL INJ 5 MG/ML 2 ML VIAL IV PRN ×3 (02:40→23:02)
[2020-03-09] MEDS: ENALAPRILAT 2.5 MG in DEXTROSE 5% 25 ML IV SCH ×4 (03:41→21:45)
[2020-03-09] MEDS: PIPERACILLIN/TAZOBACTAM 3.375 GM in DEXTROSE 5% 100 ML IV SCH (04:52)
[2020-03-09] MEDS: HydrALAZINE HCL 20 MG/ML VIAL IV SCH ×3 (05:49→22:22)
[2020-03-09] MEDS: INSULIN ASPART 100 UNITS/ML 3 ML PEN SC SCH ×2 (07:41→11:37)
[2020-03-09] MEDS ORDERED: HEPARIN SOD (PORCINE) 1000 UNIT/ML 10 ML VIAL IV ONE (07:41)
[2020-03-09] MEDS ORDERED: SODIUM CHLORIDE 0.9% 1000ML 1,000 ML IV PRN (07:41)
[2020-03-09] MEDS: carvediloL 25 MG TAB PO SCH ×2 (07:48→21:42)
[2020-03-09] MEDS: ATORVASTATIN 10 MG TAB PO SCH (07:48)
[2020-03-09] MEDS: NEPHROCAPS PO SCH (07:48)
[2020-03-09] MEDS: SERTRALINE HCL 100 MG TABLET PO SCH (07:49)
[2020-03-09] MEDS: PANTOprazole 40 MG in SYRINGE 0 ML IV SCH ×2 (07:49→19:52)
[2020-03-09] MEDS: FAMOTIDINE 20 MG TAB PO SCH (07:49)
[2020-03-09] MEDS: BuPROPion SR 100 MG TABCR PO SCH (07:49)
[2020-03-09 07:57] LABS: Hematocrit (blood only) 33.5 % (42-52); Hemoglobin 11.1 g/dL (14.0-18.0); Mean Corpuscular Hemoglobin 32.4 pg (25-34); Mean Corpuscular Hgb Conc 33.1 g/dL (32-36); Mean Corpuscular Volume 97.7 fL (80-100); Mean Platelet Volume 9.2 fL (7.4-10.4); Platelet Count 285 K/uL (130-400); RDW Coefficient of Variation 12.9 % (11.5-14.5); RDW Standard Deviation 45.5 fL (36.4-46.3); Red Blood Count 3.43 M/uL (4.7-6.1); White Blood Count 17.85 K/uL (4.8-10.8)
[2020-03-09 08:48] LABS: BUN Creatinine Ratio 9.5 (10-20); Calcium 8.2 mg/dl (8.5-10.1); Creatinine Clr Calc Pharmacy 7.1 ml/min; Est GFR (African American) 5.6; Est GFR (Non-African American) 4.8; Potassium 4.2 mmol/L (3.5-5.1)
[2020-03-09] MEDS ORDERED: LANTUS PER UNIT CHARGE SQ ONE (09:00)
--- NOTE | 2020-03-09 10:01 | Gastroenterology Progress Note ---
Date of Service March 09, 2020 Assessment & Plan (1) Acute blood loss anemia: (2) Hematemesis: (3) Gastroparesis: 1. Clear liquid diet with advancement to low fat, low fiber diabetic diet as tolerated. 2. Await pathology as pending. 3. Continue Pantoprazole 40 mg BID. 4. Outpatient follow up in 1-2 weeks. Can discuss utility of colonoscopy at that time as an outpatient. 5. Continue supportive care. Admission and Anticipated Discharge Date Admission Date: March 07, 2020 Supervising Physician Co-Signing Physician Notes I personally evaluated the patient and agree with the findings as documented by RADHIKA Dee Exam: abd: soft, nt, nd no further nausea/vomiting, hgb stable. EGD bx's are pending, cytology negative for fungal organisms. can follow up with me as an outpt in 1-2 weeks. Subjective Patient status post EGD yesterday with findings of gastritis and esophagitis. Pathology pending. Has been placed on clear liquids. Reports nausea but no vomiting. No further GIB sx. H&H has improved and was noted to be 11.1/33.5 today. Continues PPI BID. Review of Systems Constitutional: no fever and no chills Respiratory: no cough and no dyspnea Cardiovascular: no chest pain and no palpitations Gastrointestinal: as per Subjective / HPI Physical Exam Constitutional: WD/WN, vitals as above well developed and well nourished Neck: normal visual inspection Respiratory: normal respiratory effort, lungs clear to auscultation Cardiovascular: Rate/Rhythm: regular rate and regular rhythm Gastrointestinal (Abdomen): normal bowel sounds, soft, nontender, no hepatosplenomegaly Psychiatric: A+Ox3, euthymic affect Results & Data Results & Data ([facility]) Vital Signs (Past 12 Hours) Vital Signs Temp Pulse Pulse Resp BP Pulse Ox 03/09/20 09:25 89 03/09/20 08:05 36.7 C 90 20 160/70 H 95 03/09/20 04:00 36.6 C 83 16 184/78 H 96 03/09/20 00:40 81 03/08/20 22:10 36.6 C 81 20 171/72 H 96 Laboratory Results Abnormal lab results 03/08/20 03/08/20 03/08/20 Range/Units 10:28 11:22 11:22 WBC (4.8-10.8) K/uL RBC (4.7-6.1) M/uL Hgb (14.0-18.0) g/dL Hct (42-52) % VBG pH 7.43 H (7.36-7.41) Carbon Dioxide (21-32) mmol/L Anion Gap 14.0 H (3-11) BUN 87 H (7-18) mg/dl Creatinine 10.10 H* (0.6-1.4) mg/dl BUN/Creatinine Ratio 8.6 L (10-20) Glucose 130 H (70-99) mg/dl POC Glucose 152 H (70-99) mg/dl Calcium 7.9 L (8.5-10.1) mg/dl Phosphorus 6.8 H (2.5-4.9) mg/dl Magnesium 2.5 H (1.8-2.4) mg/dl 03/08/20 03/08/20 03/08/20 Range/Units 11:59 13:20 14:43 WBC (4.8-10.8) K/uL RBC (4.7-6.1) M/uL Hgb (14.0-18.0) g/dL Hct (42-52) % VBG pH (7.36-7.41) Carbon Dioxide (21-32) mmol/L Anion Gap (3-11) BUN (7-18) mg/dl Creatinine (0.6-1.4) mg/dl BUN/Creatinine Ratio (10-20) Glucose (70-99) mg/dl POC Glucose 112 H 134 H 226 H (70-99) mg/dl Calcium (8.5-10.1) mg/dl Phosphorus (2.5-4.9) mg/dl Magnesium (1.8-2.4) mg/dl 03/08/20 03/08/20 03/08/20 Range/Units 15:01 15:32 16:35 WBC (4.8-10.8) K/uL RBC (4.7-6.1) M/uL Hgb (14.0-18.0) g/dL Hct (42-52) % VBG pH (7.36-7.41) Carbon Dioxide (21-32) mmol/L Anion Gap 14.0 H (3-11) BUN 86 H (7-18) mg/dl Creatinine 9.92 H* (0.6-1.4) mg/dl BUN/Creatinine Ratio 8.7 L (10-20) Glucose 224 H (70-99) mg/dl POC Glucose 211 H 229 H (70-99) mg/dl Calcium 7.4 L (8.5-10.1) mg/dl Phosphorus 6.7 H (2.5-4.9) mg/dl Magnesium (1.8-2.4) mg/dl 03/08/20 03/08/20 03/08/20 Range/Units 17:28 18:30 19:36 WBC (4.8-10.8) K/uL RBC (4.7-6.1) M/uL Hgb (14.0-18.0) g/dL Hct (42-52) % VBG pH (7.36-7.41) Carbon Dioxide (21-32) mmol/L Anion Gap (3-11) BUN (7-18) mg/dl Creatinine (0.6-1.4) mg/dl BUN/Creatinine Ratio (03-27) Glucose (70-99) mg/dl POC Glucose 205 H 197 H 202 H (70-99) mg/dl Calcium (8.5-10.1) mg/dl Phosphorus (2.5-4.9) mg/dl Magnesium (1.8-2.4) mg/dl 03/08/20 03/08/20 03/08/20 Range/Units 20:31 21:26 22:47 WBC (4.8-10.8) K/uL RBC (4.7-6.1) M/uL Hgb (14.0-18.0) g/dL Hct (42-52) % VBG pH (7.36-7.41) Carbon Dioxide (21-32) mmol/L Anion Gap (3-11) BUN (7-18) mg/dl Creatinine (0.6-1.4) mg/dl BUN/Creatinine Ratio (03-27) Glucose (70-99) mg/dl POC Glucose 200 H 184 H 149 H (70-99) mg/dl Calcium (8.5-10.1) mg/dl Phosphorus (2.5-4.9) mg/dl Magnesium (1.8-2.4) mg/dl 03/08/20 03/09/20 03/09/20 Range/Units 23:31 00:32 01:34 WBC (4.8-10.8) K/uL RBC (4.7-6.1) M/uL Hgb (14.0-18.0) g/dL Hct (42-52) % VBG pH (7.36-7.41) Carbon Dioxide (21-32) mmol/L Anion Gap (3-11) BUN (7-18) mg/dl Creatinine (0.6-1.4) mg/dl BUN/Creatinine Ratio (10-20) Glucose (70-99) mg/dl POC Glucose 142 H 122 H 110 H (70-99) mg/dl Calcium (8.5-10.1) mg/dl Phosphorus (2.5-4.9) mg/dl Magnesium (1.8-2.4) mg/dl 03/09/20 03/09/20 03/09/20 Range/Units 02:30 03:32 04:32 WBC (4.8-10.8) K/uL RBC (4.7-6.1) M/uL Hgb (14.0-18.0) g/dL Hct (42-52) % VBG pH (7.36-7.41) Carbon Dioxide (21-32) mmol/L Anion Gap (3-11) BUN (7-18) mg/dl Creatinine (0.6-1.4) mg/dl BUN/Creatinine Ratio (-20) Glucose (70-99) mg/dl POC Glucose 116 H 157 H 215 H (70-99) mg/dl Calcium (8.5-10.1) mg/dl Phosphorus (2.5-4.9) mg/dl Magnesium (1.8-2.4) mg/dl 03/09/20 03/09/20 03/09/20 Range/Units 05:30 06:38 07:36 WBC 17.85 H (4.8-10.8) K/uL RBC 3.43 L (4.7-6.1) M/uL Hgb 11.1 L (14.0-18.0) g/dL Hct 33.5 L (42-52) % VBG pH (7.36-7.41) Carbon Dioxide (21-32) mmol/L Anion Gap (3-11) BUN (7-18) mg/dl Creatinine (0.6-1.4) mg/dl BUN/Creatinine Ratio (-20) Glucose (70-99) mg/dl POC Glucose 261 H 186 H (70-99) mg/dl Calcium (8.5-10.1) mg/dl Phosphorus (2.5-4.9) mg/dl Magnesium (1.8-2.4) mg/dl 03/09/20 03/09/20 03/09/20 Range/Units 07:37 07:37 08:33 WBC (4.8-10.8) K/uL RBC (4.7-6.1) M/uL Hgb (14.0-18.0) g/dL Hct (42-52) % VBG pH (7.36-7.41) Carbon Dioxide 18 L (21-32) mmol/L Anion Gap 16.0 H (3-11) BUN 104 H (7-18) mg/dl Creatinine 11.00 H* D (0.6-1.4) mg/dl BUN/Creatinine Ratio 9.5 L (-20) Glucose 166 H (70-99) mg/dl POC Glucose 159 H 146 H (70-99) mg/dl Calcium 8.2 L (8.5-10.1) mg/dl Phosphorus (2.5-4.9) mg/dl Magnesium (1.8-2.4) mg/dl 03/09/20 Range/Units 09:41 WBC (4.8-10.8) K/uL RBC (4.7-6.1) M/uL Hgb (14.0-18.0) g/dL Hct (42-52) % VBG pH (7.36-7.41) Carbon Dioxide (21-32) mmol/L Anion Gap (3-11) BUN (7-18) mg/dl Creatinine (0.6-1.4) mg/dl BUN/Creatinine Ratio (-20) Glucose (70-99) mg/dl POC Glucose 143 H (70-99) mg/dl Calcium (8.5-10.1) mg/dl Phosphorus (2.5-4.9) mg/dl Magnesium (1.8-2.4) mg/dl PG Care Time/CCT Total # of Minutes Spent Total Time Spent with Patient: Total time spent is greater than 50% in coordination of care (as documented) at patient's floor/unit and/or counseling patient: Coding Level of Care Code 72785 Subseq Hosp Care Lvl 2 Diagnoses Acute blood loss anemia D62 Hematemesis K92.0 Nausea presence: with nausea Gastroparesis K31.84 (1) Hematemesis Nausea presence: with nausea Qualified Code(s): K92.0 - Hematemesis
[2020-03-09] MEDS: HEPARIN SOD (PORCINE) 1000 UNIT/ML 10 ML VIAL IV SCH (10:41)
--- NOTE | 2020-03-09 10:57 | Dialysis Progress Note ---
Date of Service March 09, 2020 Assessment & Plan (1) ESRD on dialysis: MWF HD w/ acceptable chemistries and HTN urgency. while latter can reflect vol OL in HD, here would focus on managing medically. had full HD 02/25. -HD today goal UF 1.5L as tolerated -- has not tolerated much at HD lately -pls work w/ case mgt to avoid day of d/c inpatient dialysis if possible >> pls make plans for example for Thursday d/c in case he's ready (may not be) since dialysis unit closed after today about 1430 (2) Hypertensive urgency: Systolic blood pressures running the 170s to 200s at admission; down to 150-160s more now. This in the setting of intractable nausea and vomiting, so oral medications not a good option here, though long acting BB not available IV -agree w/ holding/minimizing IV fluids in this anuric dialysis pt -stopped losartan for now -standing order in for enaliprilat 2.5 mg IV q6h hold for SBP < 110 and prn SBP >180 1.25 mg Q4h -ordered standing hydralazine 10 mg IV q8h hold for SBP <110 and cont current order prn sbp > 180 q6h -ordered prn labetalol for sbp >180, hold HR <60 q8h 10 mg -Goal systolic blood pressure is 140s to 160s today -Defer to primary service to continue efforts to control nausea and vomiting as well as anxiety which can also worsen his hypertension (3) Anemia of chronic disease: manage at dialysis; pls check hgb daily at least w/ report of coffee ground emesis; f/u GI c/s (4) DKA (diabetic ketoacidoses): per primary service -minimize IVF as above Admission and Anticipated Discharge Date Admission Date: March 07, 2020 Subjective still w/ severe dry heaves; states he feels better but tired; no sob; no diarrhea; no edema; some chills this am; concerned about too much UF Review of Systems Review of Systems: All systems reviewed & are unremarkable except as noted in HPI & below Physical Exam Constitutional: well developed, + thin and + in distress (sleeping at first but marked dry heaves when he wakes; some ?rigors) Eyes: EOM intact bilaterally ENMT: Ears: no external ear abnormality Nose: no external nose abnormality Mouth: + dry oral mucous membranes Neck: no nuchal rigidity Respiratory: normal respiratory effort Auscultation: lungs clear to auscultation bilaterally and + diminished lung sounds Cardiovascular: RRR, no murmur, no edema Extremities: + AV fistula (+t/b) Gastrointestinal (Abdomen): Inspection/Auscultation: normal bowel sounds Percussion/Palpation: abdomen soft; abdomen nontender Musculoskeletal: Extremities: strength 5/5 throughout Skin: no rashes, warm and dry Psychiatric: Orientation: alert and oriented x 3 Speech: normal rate/rhythm/volume of speech Affect: + flat affect Results & Data ([facility]) Vital Signs (Past 12 Hours) Vital Signs Temp Pulse Pulse Resp BP Pulse Ox 03/09/20 09:25 89 03/09/20 08:05 36.7 C 90 20 160/70 H 95 03/09/20 04:00 36.6 C 83 16 184/78 H 96 03/09/20 00:40 81 Laboratory Results 03/09/20 07:36 03/09/20 07:37 (1) DKA (diabetic ketoacidoses) Diabetes mellitus complication detail: without coma Diabetes mellitus type: other specified (including DIANE) Qualified Code(s): E13.10 - Other specified diabetes mellitus with ketoacidosis without coma
--- NOTE | 2020-03-09 12:11 | Pharmacy Report ---
Pharmacy Glycemic Short Note 2 - Date of Service March 09, 2020 - Glycemic Short BSG Results (Last 24 hours): 03/08/20 03/08/20 03/08/20 11:59 13:20 14:43 Glucose POC Glucose 112 H 134 H 226 H 03/08/20 03/08/20 03/08/20 15:01 15:32 16:35 Glucose 224 H POC Glucose 211 H 229 H 03/08/20 03/08/20 03/08/20 17:28 18:30 19:36 Glucose POC Glucose 205 H 197 H 202 H 03/08/20 03/08/20 03/08/20 20:31 21:26 22:47 Glucose POC Glucose 200 H 184 H 149 H 03/08/20 03/09/20 03/09/20 23:31 00:32 01:34 Glucose POC Glucose 142 H 122 H 110 H 03/09/20 03/09/20 03/09/20 02:30 03:32 04:32 Glucose POC Glucose 116 H 157 H 215 H 03/09/20 03/09/20 03/09/20 05:30 06:38 07:37 Glucose POC Glucose 261 H 186 H 159 H 03/09/20 03/09/20 03/09/20 07:37 08:33 09:41 Glucose 166 H POC Glucose 146 H 143 H 03/09/20 03/09/20 10:37 11:33 Glucose POC Glucose 117 H 107 H OUTPATIENT ANTIDIABETIC REGIMEN: * Lantus 14 units Qam, novolog SSI ASSESSMENT: 03/09: * Patient continued on insulin drip overnight - running ~1 unit/hr. Had EGD done yesterday and insulin drip had been paused. BSGs in 200s, but then restarted yesterday afternoon after he got back * BSGs stable this morning - plan to transition off insulin drip. Patient averages about ~10-11 units of basal insulin on other admissions. Will give half of basal dose and utilize Q6 hr regular insulin dosing to make up basal needed/day. Patient has been on similar regimen in the past and it has produced better control than with CF/CR and Lantus combination * Insulin drip dc'ed this afternoon, plan to start regular insulin Q6 hr this evening. Patient still limited/no PO intake, plan to utilize dextrose infusion to help prevent hypoglycemia/ketosis. Talked with provider and okay with using low rate dextrose infusion PLAN FOR INPATIENT GLYCEMIC CONTROL: * Lantus 5 units x 1 (with drip overlap) * Basal insulin * Regular insulin q6h * BSG 110 mg/dL or below - 1 units * BSG 111-150 mg/dL - 2 units * BSG 151 mg/dL or above - 3 units * Correctional insulin - use goal range of 110-150 and CF of 30 for coverage PLAN FOR DISCHARGE: * tbd
--- NOTE | 2020-03-09 16:45 | Hospitalist Progress Note ---
Date of Service March 09, 2020 Assessment & Plan (1) Nausea and vomiting: Patient with history of severe gastroparesis with frequent admission for nausea and vomiting, presenting with coffee ground emesis prior to admission CT abd/pelvis performed in the ED showed nonspecific colitis and bladder distention Continue home prochlorperazine, will order reglan prn IV while npo Protonix 40 mg IV push bid Continue Cipro/Flagyl - leukocytosis improving Consulted GI - endoscopy showing severe esophagitis but no active bleeding. Advanced to clear liquids and advance as tolerated Outpatient follow up 1-2 weeks with GI, may need colonoscopy (2) Gastroparesis: As above (3) Acute blood loss anemia: With anemia of chronic disease associated with kidney disease Hgb stable at 11.1 EGD, pantoprazole as above (4) DKA (diabetic ketoacidoses): BSG 416, Bicarb 15, betahydroxybutyric acid 91 on admission. Now trending down. Continues to have anion gap, bicarb is 18 DKA order set - Will give gentle IVF 1/2 NSS dextrose 60 ml/hr Insulin gtt Consult pharmacy for glycemic management Last A1c was 6.7 (5) Hypertension: With hypertensive urgency in the ED - BP as high as 200s/100s, now systolic 160s -180s - No chest pain, sob, headache Hold home losartan per nephrology and give IV enaliprilat 2.5 mg IV q6h, cont inue po Coreg PRN hydralazine, labetalol (6) Depression: Continue home sertraline and bupropion (7) ESRD on dialysis: Consulted nephrology- patient sees Dr. Guadalupe from [facility] - appreciate assistance Last dialysis 03/09 (8) Diabetes mellitus type I: Pharmacy diabetic consult, management as above (9) CAD (coronary artery disease): Continue home Coreg, atorvastatin (10) DVT prophylaxis: SCDs, hold chemoprophylaxis due to coffee ground emesis. Admission and Anticipated Discharge Date Admission Date: March 07, 2020 Subjective Mr. De Los Santos continues to have nausea, no emesis, no abdominal pain. Denies other complaints. ROS Constitutional: no chills, aches, sweats or fever Respiratory: no sob,cough, sputum, or wheezing Cardiac: no chest pain, palpitations, edema, orthopnea or lightheadedness GI: see HPI, no diarrhea or constipation : no dysuria or hesitancy Extremities: no joint pain or weakness Skin: no rash All other systems reviewed and negative Physical Exam Physical Exam: General: no distress Eyes: normal inspection, PERLL Respiratory: chest non tender, clear to auscultation, normal breath sounds, no respiratory distress, no accessory muscle use Cardiac: regular rate and rhythm, no rub or gallop, no murmur, no edema, no jvd GI/: active bowel sounds, no abd pain or tenderness, soft, non distended Extremities: normal range of motion, normal strength, non tender Neuro/Psych: alert and oriented x 3, normal mood and affect Skin: normal color, dry Results & Data Results & Data ([facility]) Vital Signs (Past 12 Hours) Vital Signs Temp Pulse Pulse Pulse Resp BP BP 03/09/20 16:00 36.6 C 94 H 20 182/80 H 03/09/20 14:06 37 C 90 03/09/20 13:40 82 194/87 H 03/09/20 13:20 80 189/88 H 03/09/20 13:05 82 194/87 H 03/09/20 12:40 83 197/80 H 03/09/20 12:19 85 197/80 H 03/09/20 12:00 80 190/88 H 03/09/20 11:40 83 194/86 H 03/09/20 11:20 81 188/83 H 03/09/20 11:00 82 188/89 H 03/09/20 10:40 82 198/92 H 03/09/20 10:20 88 189/83 H 03/09/20 10:00 84 189/92 H 03/09/20 09:40 37.0 C 86 03/09/20 09:25 89 03/09/20 08:05 36.7 C 90 20 BP Pulse Ox 03/09/20 16:00 98 03/09/20 14:06 188/85 H 03/09/20 13:40 03/09/20 13:20 03/09/20 13:05 03/09/20 12:40 03/09/20 12:19 03/09/20 12:00 03/09/20 11:40 03/09/20 11:20 03/09/20 11:00 03/09/20 10:40 03/09/20 10:20 03/09/20 10:00 03/09/20 09:40 03/09/20 09:25 03/09/20 08:05 160/70 H 95 PG Care Time/CCT Total # of Minutes Spent Total Time Spent with Patient: Total time spent is greater than 50% in coordination of care (as documented) at patient's floor/unit and/or counseling patient: Coding Level of Care Code 33522 Subseq Hosp Care Lvl 3 Diagnoses Nausea and vomiting R11.2 Gastroparesis K31.84 Acute blood loss anemia D62 DKA (diabetic ketoacidoses) E13.10 Hypertension I10 Hypertension type: unspecified Depression F33.9 Depression Type: major depressive disorder Major depression recurrence: recurrent Active/Remission status: remission status unspecified ESRD on dialysis N18.6; Z99.2 Diabetes mellitus type I E10.9 CAD (coronary artery disease) I25.10 Coronary Disease-Associated Artery/Lesion type: [place] artery [place] vs. transplanted heart: [place] heart Associated angina: without angina DVT prophylaxis Z29.9 (1) Hypertension Hypertension type: unspecified Qualified Code(s): I10 - Essential (primary) hypertension (2) Depression Depression Type: major depressive disorder Major depression recurrence: recurrent Active/Remission status: remission status unspecified Qualified Code(s): F33.9 - Major depressive disorder, recurrent, unspecified (3) CAD (coronary artery disease) Coronary Disease-Associated Artery/Lesion type: [place] artery [place] vs. transplanted heart: [place] heart Associated angina: without angina Qualified Code(s): I25.10 - Atherosclerotic heart disease of [place] coronary artery without angina pectoris
[2020-03-09] MEDS: D5W AND 1/2NSS 1,000 ML IV SCH (17:57)
[2020-03-09] MEDS: INSULIN HUMAN REGULAR SC SCH (17:59)
[2020-03-09] MEDS: CIPROFLOXACIN / D5W 400 MG/200 ML BAG IV SCH (17:59)
[2020-03-09] MEDS: metroNIDAZOLE 500 MG/100 ML BAG IV SCH (22:22)
[2020-03-10] MEDS: INSULIN HUMAN REGULAR SC SCH ×4 (00:46→17:53)
[2020-03-10] MEDS: ENALAPRILAT 2.5 MG in DEXTROSE 5% 25 ML IV SCH ×4 (03:46→22:19)
[2020-03-10] MEDS: metroNIDAZOLE 500 MG/100 ML BAG IV SCH ×3 (06:04→22:52)
[2020-03-10] MEDS: HydrALAZINE HCL 20 MG/ML VIAL IV SCH ×3 (06:12→22:59)
[2020-03-10] MEDS: ONDANSETRON INJ 2 MG/ML 2 ML VIAL IV PRN (06:12)
[2020-03-10 06:39] LABS: Hematocrit (blood only) 34.9 % (42-52); Hemoglobin 11.5 g/dL (14.0-18.0); Mean Corpuscular Hemoglobin 32.6 pg (25-34); Mean Corpuscular Volume 98.9 fL (80-100); Mean Platelet Volume 9.4 fL (7.4-10.4); Platelet Count 315 K/uL (130-400); RDW Standard Deviation 46.8 fL (36.4-46.3); Red Blood Count 3.53 M/uL (4.7-6.1)
[2020-03-10 07:29] LABS: BUN Creatinine Ratio 7.1 (10-20); Blood Urea Nitrogen 46 mg/dl (7-18); Carbon Dioxide 25 mmol/L (21-32); Chloride 102 mmol/L (98-107); Creatinine Clr Calc Pharmacy 11.7 ml/min; Est GFR (African American) 10.5; Est GFR (Non-African American) 9.1; Glucose 193 mg/dl (70-99); Phosphorus 5.7 mg/dl (2.5-4.9); Sodium 137 mmol/L (136-145)
[2020-03-10] MEDS: ATORVASTATIN 10 MG TAB PO SCH (08:05)
[2020-03-10] MEDS: carvediloL 25 MG TAB PO SCH (08:05)
[2020-03-10] MEDS: NEPHROCAPS PO SCH (08:06)
[2020-03-10] MEDS: BuPROPion SR 100 MG TABCR PO SCH (08:06)
[2020-03-10] MEDS: SERTRALINE HCL 100 MG TABLET PO SCH (08:06)
[2020-03-10] MEDS: PANTOprazole 40 MG in SYRINGE 0 ML IV SCH ×2 (08:09→20:35)
[2020-03-10] MEDS: D5W AND 1/2NSS 1,000 ML IV SCH (09:21)
--- NOTE | 2020-03-10 12:11 | Hospitalist Progress Note ---
Date of Service March 10, 2020 Assessment & Plan (1) Nausea and vomiting: Patient with history of severe gastroparesis with frequent admission for nausea and vomiting, presenting with coffee ground emesis prior to admission CT abd/pelvis performed in the ED showed nonspecific colitis and bladder distention Continue home prochlorperazine, will keep reglan IV prn for now while not taking much po - will need to resume home ac dosing when eating consistently Protonix 40 mg IV push bid Continue Cipro/Flagyl - leukocytosis improving Consulted GI - endoscopy showing severe esophagitis but no active bleeding. Advanced to clear liquids and advance as tolerated - does not think he can eat m ore than clears for today Outpatient follow up 1-2 weeks with GI, may need colonoscopy (2) Gastroparesis: As above (3) Acute blood loss anemia: With anemia of chronic disease associated with kidney disease Hgb stable EGD, pantoprazole as above (4) DKA (diabetic ketoacidoses): BSG 416, Bicarb 15, betahydroxybutyric acid 91 on admission. Now trending down. labs improving overall DKA order set - Will give gentle IVF 1/2 NSS dextrose 60 ml/hr Insulin gtt Consulted pharmacy for glycemic management Last A1c was 6.7 (5) Hypertension: With hypertensive urgency - BP as high as 200s/100s, now systolic 160s - 180s - No chest pain, sob, headache Hold home losartan per nephrology and give IV enaliprilat 2.5 mg IV q6h, continue po Coreg PRN and scheduled hydralazine, will dc prn labetalol - patient has not had any labetalol administered yet this admission. Unable to take his coreg due to nausea. Will dc labetalol and put in for metoprolol IV 5 mg q6h for now (6) Depression: Continue home sertraline and bupropion (7) ESRD on dialysis: Consulted nephrology- patient sees Dr. Guadalupe from [facility] - appreciate assistance Last dialysis 03/09 (8) Diabetes mellitus type I: Pharmacy diabetic consult, management as above (9) CAD (coronary artery disease): Hold home coreg as above , atorvastatin (10) DVT prophylaxis: SCDs, hold chemoprophylaxis due to coffee ground emesis. Admission and Anticipated Discharge Date Admission Date: March 07, 2020 Subjective Mr. De Los Santos is feeling better today. No vomiting over the night or today. Still nauseas, no pain. Two loose stools since yesterday. ROS Constitutional: no chills, aches, sweats or fever Respiratory: no sob,cough, sputum, or wheezing Cardiac: no chest pain, palpitations, edema, orthopnea or lightheadedness GI: see HPI, no diarrhea or constipation : no dysuria or hesitancy Extremities: no joint pain or weakness Skin: no rash All other systems reviewed and negative Physical Exam Physical Exam: General: no distress Eyes: normal inspection, PERLL Respiratory: chest non tender, clear to auscultation, normal breath sounds, no respiratory distress, no accessory muscle use Cardiac: regular rate and rhythm, no rub or gallop, systolic murmur, no edema, no jvd GI/: active bowel sounds, no abd pain or tenderness, soft, non distended Extremities: normal range of motion, normal strength, non tender Neuro/Psych: alert and oriented x 3, normal mood and affect Skin: normal color, dry Results & Data Results & Data ([facility]) Vital Signs (Past 12 Hours) Vital Signs Temp Pulse Pulse Resp BP BP Pulse Ox 03/10/20 11:28 37.2 C 87 16 178/74 H 95 03/10/20 09:30 83 182/80 H 03/10/20 08:14 84 03/10/20 07:26 36.5 C 85 16 163/78 H 97 03/10/20 03:00 36.7 C 93 H 18 148/72 H 95 PG Care Time/CCT Total # of Minutes Spent Total Time Spent with Patient: Total time spent is greater than 50% in coordination of care (as documented) at patient's floor/unit and/or counseling patient: Coding Level of Care Code 64555 Subseq Hosp Care Lvl 3 Diagnoses Nausea and vomiting R11.2 Gastroparesis K31.84 Acute blood loss anemia D62 DKA (diabetic ketoacidoses) E13.10 Hypertension I10 Hypertension type: unspecified Depression F33.9 Active/Remission status: remission status unspecified Depression Type: major depressive disorder Major depression recurrence: recurrent ESRD on dialysis N18.6; Z99.2 Diabetes mellitus type I E10.9 CAD (coronary artery disease) I25.10 Associated angina: without angina Coronary Disease-Associated Artery/Lesion type: [place] artery [place] vs. transplanted heart: [place] heart DVT prophylaxis Z29.9 (1) CAD (coronary artery disease) Associated angina: without angina Coronary Disease-Associated Artery/Lesion type: [place] artery [place] vs. transplanted heart: [place] heart Qualified Code(s): I25.10 - Atherosclerotic heart disease of [place] coronary artery without angina pectoris (2) Depression Active/Remission status: remission status unspecified Depression Type: major depressive disorder Major depression recurrence: recurrent Qualified Code(s): F33.9 - Major depressive disorder, recurrent, unspecified (3) Hypertension Hypertension type: unspecified Qualified Code(s): I10 - Essential (primary) hypertension
--- NOTE | 2020-03-10 14:29 | Pharmacy Report ---
Pharmacy Glycemic Short Note 2 - Date of Service March 10, 2020 - Glycemic Short BSG Results (Last 24 hours): 03/09/20 03/09/20 03/10/20 17:56 23:53 05:52 Glucose POC Glucose 122 H 280 H 191 H 03/10/20 03/10/20 06:23 12:03 Glucose 193 H POC Glucose 194 H OUTPATIENT ANTIDIABETIC REGIMEN: * Lantus 14 units Qam, novolog SSI ASSESSMENT: 03/10: * BSG has been slightly elevated thus far today. * Last HD session was 10/2 PM. Patient states feeling a little better. Continues to have nausea. * Pt remains on D5 06/09 NS @ 60 ml/hr * Continue regular insulin scheduled q6 dosed per BSG scale -> increase doses * Tighten correction factor 03/09: * Patient continued on insulin drip overnight - running ~1 unit/hr. Had EGD done yesterday and insulin drip had been paused. BSGs in 200s, but then restarted yesterday afternoon after he got back * BSGs stable this morning - plan to transition off insulin drip. Patient averages about ~10-11 units of basal insulin on other admissions. Will give half of basal dose and utilize Q6 hr regular insulin dosing to make up basal needed/day. Patient has been on similar regimen in the past and it has produced better control than with CF/CR and Lantus combination * Insulin drip dc'ed this afternoon, plan to start regular insulin Q6 hr this evening. Patient still limited/no PO intake, plan to utilize dextrose infusion to help prevent hypoglycemia/ketosis. Talked with provider and okay with using low rate dextrose infusion PLAN FOR INPATIENT GLYCEMIC CONTROL: * Basal insulin * Regular insulin q6h * BSG 110 mg/dL or below -> 2 units * BSG 111-150 mg/dL -> 3 units * BSG 151 mg/dL or above -> 4 units * Correctional insulin * goal range of 110-150 * CF of 25 for coverage PLAN FOR DISCHARGE: * tbd
[2020-03-10] MEDS: CIPROFLOXACIN / D5W 400 MG/200 ML BAG IV SCH (17:52)
[2020-03-10] MEDS: METOPROLOL TARTRATE 1 MG/ML VIAL IV SCH (17:53)
[2020-03-10] MEDS: LORazepam 0.5 MG TAB PO PRN (23:20)
[2020-03-11] MEDS: METOPROLOL TARTRATE 1 MG/ML VIAL IV SCH
[2020-03-11] MEDS: INSULIN HUMAN REGULAR SC SCH ×5 (00:22→21:12)
[2020-03-11] MEDS: D5W AND 1/2NSS 1,000 ML IV SCH ×2 (01:36→21:20)
[2020-03-11] MEDS: ENALAPRILAT 2.5 MG in DEXTROSE 5% 25 ML IV SCH ×2 (03:16→09:55)
[2020-03-11] MEDS: metroNIDAZOLE 500 MG/100 ML BAG IV SCH ×3 (05:44→21:18)
[2020-03-11] MEDS: HydrALAZINE HCL 20 MG/ML VIAL IV SCH ×2 (05:48→14:46)
[2020-03-11] MEDS ORDERED: METOPROLOL TARTRATE 1 MG/ML VIAL IV SCH ×2 (06:00→12:00)
[2020-03-11 07:55] LABS: Hematocrit (blood only) 35.3 % (42-52); Hemoglobin 11.5 g/dL (14.0-18.0); Mean Corpuscular Hemoglobin 32.6 pg (25-34); Mean Corpuscular Hgb Conc 32.6 g/dL (32-36); Mean Platelet Volume 9.1 fL (7.4-10.4); Platelet Count 291 K/uL (130-400); RDW Coefficient of Variation 12.8 % (11.5-14.5); RDW Standard Deviation 46.8 fL (36.4-46.3); Red Blood Count 3.53 M/uL (4.7-6.1); White Blood Count 12.87 K/uL (4.8-10.8)
[2020-03-11] MEDS: PANTOprazole 40 MG in SYRINGE 0 ML IV SCH ×2 (08:21→20:35)
[2020-03-11] MEDS: ONDANSETRON INJ 2 MG/ML 2 ML VIAL IV PRN (08:21)
[2020-03-11] MEDS: NEPHROCAPS PO SCH (08:21)
[2020-03-11] MEDS: ATORVASTATIN 10 MG TAB PO SCH (08:21)
[2020-03-11] MEDS: SERTRALINE HCL 100 MG TABLET PO SCH (08:21)
[2020-03-11] MEDS: BuPROPion SR 100 MG TABCR PO SCH (08:21)
[2020-03-11 08:57] LABS: BUN Creatinine Ratio 6.6 (10-20); Calcium 7.4 mg/dl (8.5-10.1); Creatinine Clr Calc Pharmacy 9.9 ml/min; Est GFR (African American) 8.2; Est GFR (Non-African American) 7.1; Magnesium 1.9 mg/dl (1.8-2.4); Phosphorus 5.1 mg/dl (2.5-4.9); Potassium 3.2 mmol/L (3.5-5.1)
[2020-03-11] MEDS: POTASSIUM CHLORIDE / WTR 10 MEQ/100 ML PLCT IV SCH ×3 (10:41→13:05)
--- NOTE | 2020-03-11 12:37 | Hospitalist Progress Note ---
Date of Service March 11, 2020 Assessment & Plan (1) Nausea and vomiting: Patient with history of severe gastroparesis with frequent admission for nausea and vomiting, presenting with coffee ground emesis prior to admission CT abd/pelvis performed in the ED showed nonspecific colitis and bladder distention Antiemetics - will need to resume home Reglan dosing when eating consistently Protonix 40 mg IV push bid Continue Cipro/Flagyl - leukocytosis improving Consulted GI - endoscopy showing severe esophagitis but no active bleeding. Advanced to clear liquids and advance as tolerated - does not think he can eat more than clears for today Outpatient follow up 1-2 weeks with GI, may need colonoscopy (2) Gastroparesis: As above (3) Acute blood loss anemia: With anemia of chronic disease associated with kidney disease Hgb stable EGD, pantoprazole as above (4) DKA (diabetic ketoacidoses): BSG 416, Bicarb 15, betahydroxybutyric acid 91 on admission. Now trending down. labs improving overall DKA order set - Decrease IVF 1/2 NSS dextrose to 30 ml/hr Insulin gtt Consulted pharmacy for glycemic management Last A1c was 6.7 (5) Hypertension: With hypertensive urgency - BP as high as 200s/100s, now systolic 160s - 180s - No chest pain, sob, headache Hold home losartan per nephrology and give IV enaliprilat 2.5 mg IV q6h PRN and scheduled hydralazine,dc'd prn labetalol - patient has not had any labetalol administered yet this admission. Unable to take his coreg due to nausea. Continue metoprolol IV 5 mg q6h for now (6) Depression: Continue home sertraline and bupropion (7) ESRD on dialysis: Consulted nephrology- patient sees Dr. Guadalupe from [facility] - appreciate assistance Last dialysis 03/09 (8) Diabetes mellitus type I: Pharmacy diabetic consult, management as above (9) CAD (coronary artery disease): Hold home coreg as above , atorvastatin (10) DVT prophylaxis: SCDs, hold chemoprophylaxis due to coffee ground emesis. Admission and Anticipated Discharge Date Admission Date: March 07, 2020 Subjective Mr. De Los Santos continues to feel nauseas and is not eating. He has no pain ROS Constitutional: no chills, aches, sweats or fever Respiratory: no sob,cough, sputum, or wheezing Cardiac: no chest pain, palpitations, edema, orthopnea or lightheadedness GI: no abdominal pain, vomiting, diarrhea or constipation : no dysuria or hesitancy Extremities: no joint pain or weakness Skin: no rash All other systems reviewed and negative Physical Exam Physical Exam: General: no distress Eyes: normal inspection, PERLL Respiratory: chest non tender, clear to auscultation, normal breath sounds, no respiratory distress, no accessory muscle use Cardiac: regular rate and rhythm, no rub or gallop, no murmur, no edema, no jvd GI/: active bowel sounds, no abd pain or tenderness, soft, non distended Extremities: normal range of motion, normal strength, non tender Neuro/Psych: alert and oriented x 3, normal mood and affect Skin: normal color, dry Results & Data Results & Data ([facility]) Vital Signs (Past 12 Hours) Vital Signs Temp Pulse Pulse Resp BP BP Pulse Ox 03/11/20 11:52 90 175/81 H 03/11/20 11:19 36.6 C 90 16 175/81 H 96 03/11/20 09:57 87 163/78 H 03/11/20 07:06 83 03/11/20 06:37 36.8 C 85 18 137/67 95 03/11/20 05:59 87 175/77 H 03/11/20 05:47 87 175/77 H 03/11/20 03:08 36.9 C 83 18 165/77 H 96 PG Care Time/CCT Total # of Minutes Spent Total Time Spent with Patient: Total time spent is greater than 50% in coordination of care (as documented) at patient's floor/unit and/or counseling patient: Coding Level of Care Code 67924 Subseq Hosp Care Lvl 2 Diagnoses Nausea and vomiting R11.2 Gastroparesis K31.84 Acute blood loss anemia D62 DKA (diabetic ketoacidoses) E13.10 Hypertension I10 Hypertension type: unspecified Depression F33.9 Depression Type: major depressive disorder Major depression recurrence: recurrent Active/Remission status: remission status unspecified ESRD on dialysis N18.6; Z99.2 Diabetes mellitus type I E10.9 CAD (coronary artery disease) I25.10 Coronary Disease-Associated Artery/Lesion type: [place] artery [place] vs. transplanted heart: [place] heart Associated angina: without angina DVT prophylaxis Z29.9 (1) Hypertension Hypertension type: unspecified Qualified Code(s): I10 - Essential (primary) hypertension (2) Depression Depression Type: major depressive disorder Major depression recurrence: recurrent Active/Remission status: remission status unspecified Qualified Code(s): F33.9 - Major depressive disorder, recurrent, unspecified (3) CAD (coronary artery disease) Coronary Disease-Associated Artery/Lesion type: [place] artery [place] vs. transplanted heart: [place] heart Associated angina: without angina Qualified Code(s): I25.10 - Atherosclerotic heart disease of [place] coronary artery without angina pectoris
--- NOTE | 2020-03-11 13:30 | Pharmacy Report ---
Pharmacy Glycemic Short Note 2 - Date of Service March 11, 2020 - Glycemic Short BSG Results (Last 24 hours): 03/10/20 03/11/20 03/11/20 17:52 00:08 05:59 Glucose POC Glucose 253 H 153 H 214 H 03/11/20 03/11/20 07:46 11:46 Glucose 233 H POC Glucose 235 H OUTPATIENT ANTIDIABETIC REGIMEN: * Lantus 14 units Qam, novolog SSI ASSESSMENT: 03/11: * Pt continues to have hyperglycemia despite titrating regular insulin doses and tightening correction factor yesterday * Jorge Alberto received a total of 23 units of regular insulin yesterday. He remains on D5 1/2 NS @ 60 mL/hr. He continues to have very poor oral intake. * I will again increase regular insulin scale so that he will receive up to 5 units q6h instead of 4 units. * Fluid requirements discussed with provider. Plan to decrease infusion rate by 50% to see if this helps with hyperglycemia. 03/10: * BSG has been slightly elevated thus far today. * Last HD session was 10/2 PM. Patient states feeling a little better. Continues to have nausea. * Pt remains on D5 1/2 NS @ 60 ml/hr * Continue regular insulin scheduled q6 dosed per BSG scale -> increase doses * Tighten correction factor 03/09: * Patient continued on insulin drip overnight - running ~1 unit/hr. Had EGD done yesterday and insulin drip had been paused. BSGs in 200s, but then restarted yesterday afternoon after he got back * BSGs stable this morning - plan to transition off insulin drip. Patient averages about ~10-11 units of basal insulin on other admissions. Will give half of basal dose and utilize Q6 hr regular insulin dosing to make up basal needed/day. Patient has been on similar regimen in the past and it has produced better control than with CF/CR and Lantus combination * Insulin drip dc'ed this afternoon, plan to start regular insulin Q6 hr this evening. Patient still limited/no PO intake, plan to utilize dextrose infusion to help prevent hypoglycemia/ketosis. Talked with provider and okay with using low rate dextrose infusion PLAN FOR INPATIENT GLYCEMIC CONTROL: * Basal insulin - increase * Regular insulin q6h * BSG 110 mg/dL or below -> 3 units * BSG 111-150 mg/dL -> 4 units * BSG 151 mg/dL or above -> 5 units * Correctional insulin * goal range of 110-150 * CF of 25 for coverage PLAN FOR DISCHARGE: * A1c = 6.7% (03/05/20) * Insulin recommendations at time of discharge will depend on patients oral intake (currently with minimal intake and nausea)
--- NOTE | 2020-03-11 16:29 | Progress Notes ---
DATE: 03/11/2020 NEPHROLOGY PROGRESS NOTE SUBJECTIVE: The patient's diet has been advanced to clear liquids now and he is taking oral medication. Blood pressure remains high and he is still on significant amount of IV medication from the time of admission. He had dialysis on Thursday. OBJECTIVE: VITAL SIGNS: Blood pressure 170/82, pulse rate 87, 96% on room air. HEENT: Mucous membranes moist. NECK: Supple. No jugular venous distention. CHEST: Bilaterally clear to auscultation. CARDIOVASCULAR: S1, S2, regular rate and rhythm. ABDOMEN: Soft, nontender. EXTREMITIES: Show no edema. DATA: Laboratory test from this morning was reviewed. Sodium 132, potassium 3.2, BUN 53, creatinine 8.05, calcium 7.4, phosphorus 5.1, hemoglobin 11.5. ASSESSMENT AND PLAN: A 49-year-old male with end-stage renal disease, on hemodialysis Thursday, Thursday, Thursday and also has severe hypertension. 1. End-stage renal disease: He will have dialysis tomorrow on a 3K bath for 3 hours 30 minutes and we will take about 2-3 kilo of fluid off. 2. Hypertensive urgency: At this time, he is allowed to take oral medication, so we need to transition back to oral medication. Stop IV enalapril, use losartan 100 daily. Also add amlodipine 5 mg daily. He can have carvedilol 12.5 bid. Can stop IV metoprolol at this time. MTDD
[2020-03-11] MEDS: CIPROFLOXACIN / D5W 400 MG/200 ML BAG IV SCH (18:20)
[2020-03-11] MEDS: LORazepam 0.5 MG TAB PO PRN (20:41)
[2020-03-11] MEDS ORDERED: carvediloL 12.5 MG TAB PO SCH (21:00)
[2020-03-12] MEDS ORDERED: INSULIN HUMAN REGULAR SC SCH
[2020-03-12] MEDS: INSULIN HUMAN REGULAR SC SCH ×5 (00:21→17:50)
[2020-03-12] MEDS: metroNIDAZOLE 500 MG/100 ML BAG IV SCH ×3 (05:34→14:28)
[2020-03-12 07:57] LABS: Hematocrit (blood only) 33.6 % (42-52); Mean Corpuscular Hemoglobin 32.2 pg (25-34); Mean Corpuscular Hgb Conc 32.7 g/dL (32-36); Mean Corpuscular Volume 98.2 fL (80-100); Mean Platelet Volume 9.3 fL (7.4-10.4); Platelet Count 274 K/uL (130-400); RDW Coefficient of Variation 12.6 % (11.5-14.5); RDW Standard Deviation 44.9 fL (36.4-46.3); Red Blood Count 3.42 M/uL (4.7-6.1); White Blood Count 14.23 K/uL (4.8-10.8)
[2020-03-12] MEDS: PANTOprazole 40 MG in SYRINGE 0 ML IV SCH (08:24)
[2020-03-12] MEDS: FAMOTIDINE 20 MG TAB PO SCH (08:28)
[2020-03-12] MEDS: SERTRALINE HCL 100 MG TABLET PO SCH (08:28)
[2020-03-12] MEDS: ATORVASTATIN 10 MG TAB PO SCH (08:28)
[2020-03-12] MEDS: BuPROPion SR 100 MG TABCR PO SCH (08:28)
[2020-03-12] MEDS: LOSARTAN POTASSIUM 50 MG TAB PO SCH ×2 (08:28→13:10)
[2020-03-12] MEDS: NEPHROCAPS PO SCH (08:28)
[2020-03-12 08:40] LABS: Calcium 7.2 mg/dl (8.5-10.1); Creatinine Clr Calc Pharmacy 8.6 ml/min; Est GFR (African American) 6.7; Est GFR (Non-African American) 5.7; Potassium 3.4 mmol/L (3.5-5.1)
[2020-03-12] MEDS ORDERED: AMLODIPINE BESYLATE 5 MG TAB PO SCH (09:00)
--- NOTE | 2020-03-12 12:01 | Progress Notes ---
DATE: 03/12/2020 SUBJECTIVE: The patient is getting dialysis at this time and he was seen during dialysis, continues to have nausea and occasional vomiting with his severe gastroparesis. AV fistula worked fine. OBJECTIVE: VITAL SIGNS: Blood pressure is high at 194/97, pulse rate 95, 96% on room air. HEENT: Mucous membranes moist. NECK: Supple. No jugular venous distention. CHEST: Bilateral clear to auscultation. CARDIOVASCULAR: S1, S2 regular. ABDOMEN: Soft, nontender. EXTREMITIES: Shows no edema. LABORATORY TESTS: From this morning shows sodium 130, potassium 3.4, BUN 58, creatinine 9.55, calcium 7.2, hemoglobin is 11. ASSESSMENT AND PLAN: A 49-year-old male with endstage renal disease, on hemodialysis Thursday, Thursday, Thursday, admitted with severe gastroparesis, nausea, vomiting symptoms. 1. End-stage renal disease: Continue dialysis on a 3K bath for 3 hours 30 minutes today and we will take about 3 kilo of fluid off. 2. Hypertensive urgency: At this time, he is allowed to take oral medications, but he still has persistent nausea and vomiting, which makes it difficult to control blood pressure. However, at some point, we do have to transition him back to oral medication and I would have no problem to start transitioning him and give him as needed medication on top of standard oral medication.
--- NOTE | 2020-03-12 14:29 | Pharmacy Report ---
Pharmacy Glycemic Short Note 2 - Date of Service March 12, 2020 - Glycemic Short BSG Results (Last 24 hours): OUTPATIENT ANTIDIABETIC REGIMEN: * Lantus 14 units Qam, novolog SSI ASSESSMENT: 03/12: * Patient received a total of 40 units of regular insulin yesterday for his hyperglycemia (~ 75% increase from the day before). * He remains on D5 1/2 NS at 30 mL/hr. He ate very well yesterday but refused breakfast this morning and did not eat lunch. * Planning on continuing his current regular insulin scale but will loosen the CF. The CF was tightened last evening when patient was confirmed to be eating very well. 03/11: * Pt continues to have hyperglycemia despite titrating regular insulin doses and tightening correction factor yesterday * Jorge Alberto received a total of 23 units of regular insulin yesterday. He remains on D5 1/2 NS @ 60 mL/hr. He continues to have very poor oral intake. * I will again increase regular insulin scale so that he will receive up to 5 units q6h instead of 4 units. * Fluid requirements discussed with provider. Plan to decrease infusion rate by 50% to see if this helps with hyperglycemia. 03/10: * BSG has been slightly elevated thus far today. * Last HD session was 10/2 PM. Patient states feeling a little better. Continues to have nausea. * Pt remains on D5 1/2 NS @ 60 ml/hr * Continue regular insulin scheduled q6 dosed per BSG scale -> increase doses * Tighten correction factor 03/09: * Patient continued on insulin drip overnight - running ~1 unit/hr. Had EGD done yesterday and insulin drip had been paused. BSGs in 200s, but then restarted yesterday afternoon after he got back * BSGs stable this morning - plan to transition off insulin drip. Patient averages about ~10-11 units of basal insulin on other admissions. Will give half of basal dose and utilize Q6 hr regular insulin dosing to make up basal needed/day. Patient has been on similar regimen in the past and it has pro duced better control than with CF/CR and Lantus combination * Insulin drip dc'ed this afternoon, plan to start regular insulin Q6 hr this evening. Patient still limited/no PO intake, plan to utilize dextrose infusion to help prevent hypoglycemia/ketosis. Talked with provider and okay with using low rate dextrose infusion PLAN FOR INPATIENT GLYCEMIC CONTROL: * Basal insulin - no change * Regular insulin q6h * BSG 130 mg/dL or below -> 3 units * BSG 131-180 mg/dL -> 4 units * BSG 181 mg/dL or above -> 5 units * Correctional insulin - loosened * goal range of 110-150 * CF of 25 for coverage PLAN FOR DISCHARGE: * A1c = 6.7% (03/05/20) * Insulin recommendations at time of discharge will depend on patients oral intake (currently with minimal intake and nausea)
--- NOTE | 2020-03-12 16:09 | Discharge Summary ---
Date of Service March 12, 2020 Admission HPI Per Admitting Provider Mr. De Los Santos presents for persistent nausea with coffee ground emesis. He presented to the emergency department for nauasea and vomiting last evening and then presented again this morning for the same complaints. He went to dialysis but from dialysis was sent back to the emergency department. He appears to be in DKA as well. He denies aches, chills, fevers, sob, chest pain, or any abdominal pain. He does report occasional cough but feels this is from post nasal drip due to allergies. He is having some loose stools. He feels he is having some heartburn. Principal Diagnosis Intractable nausea/vomiting, gastroparesis, hematemesis, DKA Discharge Exam Constitutional + thin; no acute distress Eyes + anicteric sclerae ENMT external ear and nose normal, oropharynx normal Neck trachea midline, no thyromegaly Respiratory normal respiratory effort, lungs clear to auscultation Cardiovascular RRR, no murmur, no edema Chest (Breasts) Chest: normal inspection of chest Gastrointestinal (Abdomen) normal bowel sounds, soft, nontender, no hepatosplenomegaly Musculoskeletal Extremities: extremities normal to inspection; no cyanosis and no clubbing Skin no rashes, warm and dry Neurologic moves all extremities and awake; no focal motor deficits Psychiatric A+Ox3, euthymic affect Lymphatic no lymphedema Discharge Data Allergies Allergy/AdvReac Type Severity Reaction Status Date / Time shellfish derived Allergy Severe anaphylaxis Verified 03/07/20 14:40 codeine Allergy Intermediate Hives Verified 03/07/20 14:40 promethazine Allergy Intermediate itchy/hives Verified 03/07/20 14:40 Consultations 03/07/20 15:53 ED Decision to Admit Stat 03/07/20 19:07 Consult Case Management - Discharge Planning Routine Consult Nephrology Routine 03/08/20 08:32 Consult Gastroenterology Routine Procedures Performed Operation Date: 03/08/20 16:55 Actual Procedures p EGD Biopsy Cytology - Chip Tirado MD Ordered Studies 03/07/20 15:21 CT abd pelvis wo con Stat CXR Hospital Course (1) Nausea and vomiting: Patient with history of severe gastroparesis with frequent admission for nausea and vomiting, presenting with coffee ground emesis prior to admission CT abd/pelvis performed in the ED showed nonspecific colitis and bladder distention Antiemetics - will need to resume home Reglan dosing when eating consistently Protonix 40 mg IV push bid Continue Cipro/Flagyl - leukocytosis improving Consulted GI - endoscopy showing severe esophagitis but no active bleeding. Advanced to clear liquids and advance as tolerated - does not think he can eat more than clears for today Outpatient follow up 1-2 weeks with GI, may need colonoscopy (2) DKA (diabetic ketoacidoses): BSG 416, Bicarb 15, betahydroxybutyric acid 91 on admission. Now trending down. labs improving overall DKA order set - Decrease IVF 1/2 NSS dextrose to 30 ml/hr Insulin gtt Consulted pharmacy for glycemic management Last A1c was 6.7 (3) Esophagitis: (4) Hematemesis: p/w such, resolved secondary to severe ulcerative esophagitis on EGD dc on PPI Protonix 40mg bid, continue home Pepcid MWF f/u with GI in 2 weeks (5) DKA (diabetic ketoacidoses): p/w DKA, N/V AG closed on insulin gtt, transitioned back bibiana home insulin lyte and fluid management as per Nephro, hemodialysis (6) Hypertensive urgency: Secondary to vomiting, inability to take po meds restarted home meds and tolerating, BPs controlled (7) Gastroparesis: chronic, eats small meals (8) Hypertension: treated with IV labetalol and enalaprilat as needed restarted home po meds (9) Depression: Continue home sertraline and bupropion (10) ESRD on dialysis: Consulted nephrology- patient sees Dr. Guadalupe from [facility] - appreciate assistance Last dialysis was on day of discharge in the morning Pt adamant about going home after dialysis (same day) and was medically stable for discharge (11) Diabetes mellitus type I: Pharmacy diabetic consult, management as above (12) CAD (coronary artery disease): nonobstructive on cardiac cath 2018 -continue home coreg , atorvastatin not on aspirin (13) Lumbar compression fracture: noted on CT scan, L5 with mild-moderate heaight loss pt denies pain or focal neuro symptoms in legs, is able to walk treat for BMD secondary to ESRD as per Nephro (14) Anemia of chronic disease: hgb stable at 11, Nephro managing Stable for dc to home (15) DVT prophylaxis: SCDs, hold chemoprophylaxis due to coffee ground emesis. Total Time Total Time Spent Total Time Spent (In Minutes): 35 min Total Time Includes: Examination of the Patient, Discharge Planning and Medication Reconciliation Discharge Plan Discharge Items Patient Disposition: Home - Self-Care Reason For Visit: DKA, VOMITING Discharge Diagnosis: Intractable nausea/vomiting, DKA Condition on Discharge: Fair Activity: Resume your previous activity Non-emergency contact: Primary Care Provider and Rheumatology Nurse Call non-emergency contact if: you have any medication questions and your symptoms worsen Follow-up/Referrals: Abbi Ames MD [Primary Care Provider] - 03/26/20 11:20 am (Follow up within 1-2 weeks.) Diet: Carb Count or DM1 and Dialysis Renal Diet Comment: Gastroparesis diet, small meals often Addtl Attending Provider Instructions: Continue regular dialysis sessions. You had an EGD which showed inflammation in the esophagus-please continue taking the antacid Protonix twice a day for this. Your blood pressure medications were also changed by Nephrology to include increasing your losartan to 100mg daily, decreasing your Coreg to 12.5mg twice a day, and added on a new medication called amlodipine 5mg daily. You do not need to continue on antibiotics for colitis as this was ruled out. Follow up with your PCP within 1-2 weeks. Pending Studies at Discharge: No Stand-Alone Forms: My [facility] Medications and DC Order Prescriptions: New amlodipine [Norvasc] 5 mg Tablet 5 mg PO QAM Qty: 30 RF: 0 losartan 100 mg tablet 100 mg PO DAILY Qty: 30 RF: 0 pantoprazole 40 mg Tablet,Delayed Release (Dr/Ec) 40 mg PO BID Qty: 60 RF: 0 Continued bupropion HCl 100 mg tablet sustained-release 12 hr 100 mg PO QAM RF: 0 (DME) Contour Next Test Strips Strip See Dose Instructions .ROUTE .MEDSUPPLY Qty: 300 RF: 3 (DME) pen needle, diabetic [BD Ultra-Fine Annalise Pen Needle] 32 gauge x 5/32" needle See Rx Instructions .ROUTE .MEDSUPPLY Qty: 500 RF: 3 lorazepam 0.5 mg tablet 0.5 mg PO Q12 PRN (Reason: Anxiety) RF: 0 atorvastatin 10 mg tablet 10 mg PO QAM RF: 0 acetaminophen [Acetaminophen Extra Strength] 500 mg Tablet 500 mg PO Q6H MDD 3000 MG/DAY PRN (Reason: Fever Or Pain) RF: 0 Velphoro 500 mg Tablet,Chewable 500 mg PO AC RF: 0 insulin aspart U-100 [Novolog Flexpen U-100 Insulin] 100 unit/mL (3 mL) insulin pen 1 unit SUBCUT UD PRN (Reason: sliding scale) RF: 0 Basaglar KwikPen U-100 Insulin 100 unit/mL (3 mL) insulin pen 14 unit SUBCUT DAILY RF: 0 famotidine 20 mg tablet 20 mg PO MOWEFR RF: 0 Chris Caps 1 mg capsule 1 cap PO QAM RF: 0 sertraline 100 mg tablet 100 mg PO QAM RF: 0 Changed carvedilol 25 mg tablet 12.5 mg PO BID Qty: 0 RF: 0 Discontinued losartan 50 mg tablet 75 mg PO QAM RF: 0 No Action prochlorperazine maleate 5 mg tablet 5 mg PO Q8H PRN (Reason: nausea and vomiting) Qty: 10 RF: 1 Discharge Orders: Discharge Order (Routine); Ordered 03/12/20 Ordered By: Mireille Ponce Admission Data Admit Date/Time: 03/07/20 16:45 Attending Provider: Mireille Ponce Admit Provider: Maninder Greenberg Primary Care Provider: Abbi Ames V. Other Providers: Lor Guadalupe ; Chip Tirado Other Interventions: Discharge Summary Assessment (RN) Last Done: 03/12/20 17:17 Coding Level of Care Code D/C Day Management >30 mins Diagnoses Nausea and vomiting R11.2 DKA (diabetic ketoacidoses) E13.10 Esophagitis K20.90 Hematemesis K92.0 DKA (diabetic ketoacidoses) E11.10 Hypertensive urgency I16.0 Gastroparesis K31.84 Hypertension I10 Hypertension type: unspecified Depression F33.9 Active/Remission status: remission status unspecified Depression Type: major depressive disorder Major depression recurrence: recurrent ESRD on dialysis N18.6; Z99.2 Diabetes mellitus type I E10.9 CAD (coronary artery disease) I25.10 Associated angina: without angina Coronary Disease-Associated Artery/Lesion type: marshall artery [place] vs. transplanted heart: marshall heart Lumbar compression fracture S32.000A Anemia of chronic disease D63.8 DVT prophylaxis Z29.9
[2020-03-12] MEDS ORDERED: PANTOprazole 40 MG TAB PO SCH (21:00)
== END 2020-03-12 18:15 | disposition home or self-care (01) | DRG 380 ==
LOC: ED 12:11 → 2N 16:45 → SUATTDRO 16:45 → 2N 18:33

== ENCOUNTER 2020-06-16 12:00 | Inpatient (IN) ==
[2020-06-16] MEDS ORDERED: ONDANSETRON INJ 2 MG/ML 2 ML VIAL IV STA ×2 (12:49→14:17)
[2020-06-16] MEDS ORDERED: HYOSCYAMINE SULFATE 0.125 MG TAB SL STA (12:49)
--- NOTE | 2020-06-16 12:58 | Emergency Department Note ---
History of Present Illness General Chief complaint: Vomiting Stated complaint: NAUSEA/VOMITING,SWEATING Time Seen by Provider: 06/16/20 12:38 Source: patient History of Present Illness Provider complaint: Abdominal pain Onset (ago): hour(s) Location: abdomen Radiation: non-radiation Pain Consistency: + constant Quality: + other (Cramping) Relieved By: + none Associated symptoms: + nausea/vomiting; no chest pain, no cough, no fever/chills , no malaise and no shortness of breath This is a 49-year-old male with end-stage renal disease status post hemodialysis yesterday presenting with diffuse abdominal pain upon waking up this morning. He describes it as a diffuse crampy pain without radiation to his back. He states it is associated with dry heaving. He denies diarrhea. The pain is constant. He denies any modifying factors. He does not urinate. He has had no fever, cough or cold symptoms, chest pain, shortness of breath. He states this does not feel the same as when he came in earlier in the month for abdominal pain. Home Medications Medication Instructions Recorded Confirmed Type sertraline 100 mg PO QAM 03/21/19 06/16/20 History bupropion HCl 100 mg tablet,12 hr 100 mg PO QAM ea 04/14/19 06/16/20 History sustained-release acetaminophen [Acetaminophen Extra 500 mg PO Q6H PRN MDD 3000 MG/DAY 07/13/19 06/16/20 History Strength] lorazepam 0.5 mg tablet 0.5 mg PO Q12 PRN tab 07/25/19 06/16/20 History Contour Next Test Strips #300 ea NS 10/26/19 06/16/20 Rx pen needle, diabetic 32 gauge x #500 ea 01/25/20 06/16/20 Rx 5/32" insulin aspart U-100 [Novolog 1 unit SUBCUT UD PRN 02/01/20 06/16/20 History Flexpen U-100 Insulin] pantoprazole 40 mg PO BID #60 tab 03/12/20 06/16/20 Rx prochlorperazine maleate 5 mg 5 mg PO Q8H PRN #10 tab 04/06/20 06/16/20 Rx tablet amlodipine 10 mg tablet 10 mg PO QAM #1 tab 05/29/20 06/16/20 Rx carvedilol 25 mg tablet 37.5 mg PO BID #0 tab 05/29/20 06/16/20 Rx insulin glargine 100 unit/mL (3 12 unit SUBCUT QAM ml 06/13/20 06/16/20 History mL) subcutaneous pen metoclopramide HCl 5 mg tablet 5 mg PO BID tab 06/13/20 06/16/20 History sucroferric oxyhydroxide 500 mg 500 mg PO AC 06/13/20 06/16/20 History chewable tablet Allergies Allergy/AdvReac Type Severity Reaction Status Date / Time shellfish derived Allergy Severe anaphylaxis Verified 06/16/20 14:23 codeine Allergy Intermediate Hives Verified 06/16/20 14:23 promethazine Allergy Intermediate itchy/hives Verified 06/16/20 14:23 Past Med/Surg History Medical History Anemia of chronic disease Anxiety AV fistula left arm CAD (coronary artery disease) mild, non-obstructive CAD per 10/2018 cardiac cath> [facility] Depression Depression Diabetic neuropathy Diabetic retinopathy Dialysis patient DKA (diabetic ketoacidoses) DKA (diabetic ketoacidoses) Esophagitis ESRD (end stage renal disease) M,W,F (Follows with Dr. Taylor Higgins; [facility]) ESRD on dialysis Gastroparesis GERD (gastroesophageal reflux disease) Hematemesis Hypertension Hypertensive urgency Kidney stones Lumbar compression fracture Lumbar radiculopathy Peripheral neuropathy Retinopathy due to secondary diabetes Severe protein-calorie malnutrition Surgical History H/O shoulder surgery RIGHT History of appendectomy History of cardiac cath 10/2018= no stents, no obstructive disease (at [facility]) History of esophagogastroduodenoscopy (EGD) History of hip surgery left HIP ARTHROSCOPY History of lithotripsy History of open reduction and internal fixation (ORIF) procedure right hip Nausea and vomiting after administration of anesthetic agent Permanent central venous catheter in place Permacath and since has been removed Family History Grandfather Myocardial infarction Grandfather (Maternal) Family history of diabetes mellitus Uncle Myocardial infarction Denies family history of Colon cancer Ovarian cancer Prostate cancer Breast cancer Social History Smoking Status: Never smoker Second Hand Exposure: No; Hx Alcohol Use: No Hx Substance Use: No Preferred Language: Korean Communication Ability: Effective Visual Impairment: No Limitations Hearing Ability: Normal Crystalizer Required: No Beliefs That Will Affect Care: None marital status: Single Current Living Situation: Family current occupational status: disabled How many Children do You have: 2 Feels Safe at Home: Yes Childhood Exposure to Second-Hand Smoke: Yes Dental Care, Regularly: No Physical Activity Frequency: 1-2 Times per Week Seatbelt Use: always Sunscreen Use: No Assistive Devices: Glasses Review of Systems See HPI for pertinent positives & negatives. and A total of 10 systems reviewed and were otherwise negative Physical Exam Vital Signs Vital Signs - 24 hr 06/16/20 12:04 06/16/20 14:16 06/16/20 14:18 Temperature 36.6 C Temperature Source Temporal Artery Scan Pulse Rate 68 74 75 Pulse Rate from SpO2 Sensor 75 75 Respiratory Rate 20 18 17 Blood Pressure 168/74 H 198/79 H Blood Pressure Mean 105 131 Pulse Oximetry 100 100 100 Oxygen Delivery Method Room Air Sepsis Recent Fever Within 48 Hours No Sepsis New/Unexplained Change in Mental Status No Sepsis Action Taken by Nursing No Action Required 06/16/20 14:30 06/16/20 14:31 06/16/20 15:00 Temperature Temperature Source Pulse Rate 79 75 76 Pulse Rate from SpO2 Sensor 79 75 77 Respiratory Rate 19 13 10 L Blood Pressure 201/82 H 188/85 H Blood Pressure Mean 138 140 Pulse Oximetry 100 100 100 Oxygen Delivery Method Sepsis Recent Fever Within 48 Hours Sepsis New/Unexplained Change in Mental Status Sepsis Action Taken by Nursing 06/16/20 15:01 06/16/20 15:30 06/16/20 15:31 Temperature Temperature Source Pulse Rate 77 78 79 Pulse Rate from SpO2 Sensor 77 79 79 Respiratory Rate 12 13 20 Blood Pressure 208/92 H Blood Pressure Mean 155 Pulse Oximetry 100 100 100 Oxygen Delivery Method Sepsis Recent Fever Within 48 Hours Sepsis New/Unexplained Change in Mental Status Sepsis Action Taken by Nursing 06/16/20 16:00 06/16/20 16:01 06/16/20 16:30 Temperature Temperature Source Pulse Rate 81 81 84 Pulse Rate from SpO2 Sensor 81 81 85 Respiratory Rate 15 12 22 Blood Pressure 209/94 H 197/91 H Blood Pressure Mean 155 149 Pulse Oximetry 100 100 100 Oxygen Delivery Method Sepsis Recent Fever Within 48 Hours Sepsis New/Unexplained Change in Mental Status Sepsis Action Taken by Nursing 06/16/20 16:31 Temperature Temperature Source Pulse Rate 84 Pulse Rate from SpO2 Sensor 85 Respiratory Rate 19 Blood Pressure Blood Pressure Mean Pulse Oximetry 100 Oxygen Delivery Method Sepsis Recent Fever Within 48 Hours Sepsis New/Unexplained Change in Mental Status Sepsis Action Taken by Nursing Constitutional: Vital signs reviewed. Eyes: Pupils are equal round reactive to light. Conjunctiva are noninjected. ENT: Pharynx is clear without erythema or exudate. Mucous membranes are dry. Neck supple without meningeal signs. Respiratory: Clear to auscultation bilaterally. Breath sounds are equal bilaterally. Cardiovascular: Regular rate and rhythm. No rubs or gallops. GI: Soft, nondistended and nontender. Insulin pump in the right upper abdomen. Bowel sounds are present. Musculoskeletal: No peripheral edema. No lower extremity tenderness. Integumentary: No cyanosis. or jaundice. Neurological: The patient is awake and alert. Psychiatric: Slightly anxious appearing. Course Administered Medications Discontinued Medications Hydralazine HCl (Hydralazine Hcl 20 Mg/Ml Vial) 10 mg IV NOW STA Stop: 06/16/20 15:52 Last Admin: 06/16/20 16:32 Dose: 10 mg Documented by: [id number] Hyoscyamine (Hyoscyamine Sulfate 0.125 Mg Tab) 0.125 mg SL NOW STA Stop: 06/16/20 12:50 Last Admin: 06/16/20 13:35 Dose: 0.125 mg Documented by: [id number] Sodium Chloride (Nss) 250 mls @ 999 mls/hr IV .Q16M ONE Stop: 06/16/20 14:32 Last Infusion: 06/16/20 16:00 Dose: 0 mls/hr Documented by: [id number] Admin: 06/16/20 15:00 Dose: 999 mls/hr Documented by: [id number] Pantoprazole Sodium 40 mg/ (Syringe) 10 mls @ 5 mls/min IV ONE ONE Stop: 06/16/20 15:31 Last Admin: 06/16/20 16:33 Dose: 5 mls/min Documented by: [id number] Prochlorperazine 5 mg/ Syringe 5 mls @ 5 mls/min IV ONE STA Stop: 06/16/20 15:52 Last Admin: 06/16/20 16:41 Dose: Not Given Documented by: [id number] Lorazepam (Ativan) 0.5 mg in 1 mls @ 1 mls/min IV NOW STA Stop: 06/16/20 15:56 Last Admin: 06/16/20 16:32 Dose: 1 mls/min Documented by: [id number] Ondansetron HCl (Ondansetron Inj 2 Mg/Ml 2 Ml Vial) 4 mg IV NOW STA Stop: 06/16/20 12:50 Last Admin: 06/16/20 13:35 Dose: 4 mg Documented by: [id number] Ondansetron HCl (Ondansetron Inj 2 Mg/Ml 2 Ml Vial) 4 mg IV NOW STA Stop: 06/16/20 14:18 Last Admin: 06/16/20 15:00 Dose: 4 mg Documented by: [id number] Medical Decision Making Differential Diagnosis Gastritis, pancreatitis, dehydration, bowel obstruction, electrolyte abnormality Medical Records Attestation: I reviewed the patient's medical records. I did perform a limited focused review of portions of the patient's old chart o n the electronic medical record. The patient was seen here on June 10 for abdominal pain and vomiting. He was treated with Compazine, Zofran and normal saline and discharged home. He did follow-up with his doctor after that visit. Home Medications Current Medication List: was personally reviewed by me Laboratory Data Attestation: I reviewed the patient's lab results. Result diagrams: 06/16/20 13:20 06/16/20 13:20 Lab Results 06/16/20 06/16/20 06/16/20 Range/Units 13:20 13:20 14:45 WBC 10.96 H (4.8-10.8) K/uL RBC 4.20 L (4.7-6.1) M/uL Hgb 13.8 L (14.0-18.0) g/dL Hct 39.9 L (42-52) % MCV 95.0 (80-100) fL MCH 32.9 (25-34) pg MCHC 34.6 (32-36) g/dL RDW Std Deviation 42.6 (36.4-46.3) fL RDW Coeff of Kami 12.4 (11.5-14.5) % Plt Count 334 (130-400) K/uL MPV 9.2 (7.4-10.4) fL Immature Gran % (Auto) 0.4 % Neut % (Auto) 83.9 % Lymph % (Auto) 10.1 % Bates % (Auto) 4.4 % Eos % (Auto) 0.9 % Baso % (Auto) 0.3 % Neut # (Auto) 9.20 H (1.4-6.5) K/uL Lymph # (Auto) 1.11 L (1.2-3.4) K/uL Bates # (Auto) 0.48 (0.11-0.59) K/uL Eos # (Auto) 0.10 (0-0.5) K/uL Baso # (Auto) 0.03 (0-0.2) K/uL Immature Gran # (Auto) 0.04 H (0.00-0.02) K/uL Sodium 130 L (136-145) mmol/L Potassium 3.7 (3.5-5.1) mmol/L Chloride 96 L (98-107) mmol/L Carbon Dioxide 24 (21-32) mmol/L Anion Gap 10.0 (3-11) BUN 33 H (7-18) mg/dl Creatinine 5.85 H* (0.6-1.4) mg/dl Est Cr Clr Drug Dosing 13.8 ml/min Est GFR ( Amer) 12.1 Est GFR (Non-Af Amer) 10.4 BUN/Creatinine Ratio 5.5 L (10-20) Glucose 167 H (70-99) mg/dl Calcium 9.8 (8.5-10.1) mg/dl Total Bilirubin 0.7 (0.2-1) mg/dl AST 11 L (15-37) U/L ALT 25 (12-78) U/L Alkaline Phosphatase 100 (45-117) U/L Total Protein 7.8 (6.4-8.2) gm/dl Albumin 4.2 (3.4-5.0) gm/dl Globulin 3.6 (2.5-4.0) gm/dl Albumin/Globulin Ratio 1.2 (0.9-2) Lipase 107 (73-393) U/L COVID-19 Eval Order Covid19 IDNow [facility] SARS-CoV-2, RNA, NAAT (NEGATIVE) 06/16/20 Range/Units 14:45 WBC (4.8-10.8) K/uL RBC (4.7-6.1) M/uL Hgb (14.0-18.0) g/dL Hct (42-52) % MCV (80-100) fL MCH (25-34) pg MCHC (32-36) g/dL RDW Std Deviation (36.4-46.3) fL RDW Coeff of Kami (11.5-14.5) % Plt Count (130-400) K/uL MPV (7.4-10.4) fL Immature Gran % (Auto) % Neut % (Auto) % Lymph % (Auto) % Bates % (Auto) % Eos % (Auto) % Baso % (Auto) % Neut # (Auto) (1.4-6.5) K/uL Lymph # (Auto) (1.2-3.4) K/uL Bates # (Auto) (0.11-0.59) K/uL Eos # (Auto) (0-0.5) K/uL Baso # (Auto) (0-0.2) K/uL Immature Gran # (Auto) (0.00-0.02) K/uL Sodium (136-145) mmol/L Potassium (3.5-5.1) mmol/L Chloride (98-107) mmol/L Carbon Dioxide (21-32) mmol/L Anion Gap (3-11) BUN (7-18) mg/dl Creatinine (0.6-1.4) mg/dl Est Cr Clr Drug Dosing ml/min Est GFR ( Amer) Est GFR (Non-Af Amer) BUN/Creatinine Ratio (10-20) Glucose (70-99) mg/dl Calcium (8.5-10.1) mg/dl Total Bilirubin (0.2-1) mg/dl AST (15-37) U/L ALT (12-78) U/L Alkaline Phosphatase (45-117) U/L Total Protein (6.4-8.2) gm/dl Albumin (3.4-5.0) gm/dl Globulin (2.5-4.0) gm/dl Albumin/Globulin Ratio (0.9-2) Lipase (73-393) U/L COVID-19 Eval Order SARS-CoV-2, RNA, NAAT NEGATIVE (NEGATIVE) Imaging Data Radiologist's Impression: ABDOMEN AND PELVIS CT WITHOUT CONTRAST CT DOSE: 295.72 mGy.cm HISTORY: Acute generalized abdominal pain with nausea and vomiting pain eval for obstruction TECHNIQUE: Multiaxial CT images of the abdomen and pelvis were performed without contrast. A dose lowering technique was utilized adhering to the principles of ALARA. COMPARISON STUDY: CT abdomen and pelvis 03/07/2020 FINDINGS: Clear lung bases. There is no pneumatosis or pneumoperitoneum. The imaged inferior cardiac chambers are unremarkable with artery calcifications and trace pericardial effusion. The unenhanced spleen, pancreas, adrenal glands, gallbladder and liver appear unremarkable. Probable cyst of the superior pole left kidney, 1.4 cm. Mild nonspecific bilateral perinephric stranding. 6 mm nonobstructing calculus of the inferior pole right kidney. No ureteral calculi or obstructive uropathy. Mild prost amegaly. Urinary bladder wall thickening with partial distention. Mild calcified plaque of the abdominal aorta without aneurysm. There is no adenopathy. Mild nonspecific distal esophageal wall thickening. Appendectomy. No definite bowel obstruction or bowel wall thickening. No acute fracture. Intertrochanteric nail the right femur. Schmorl's nodes with remote compression deformities are noted at T11, T12 and L5 which appear unchanged from comparison. IMPRESSION: 1. Limited exam without the use of contrast. 2. No bowel obstruction or bowel wall thickening. 3. Prior appendectomy. 4. Nonobstructing right nephrolithiasis. 5. Prostamegaly with urinary bladder wall thickening. Correlate with urinalysis. 6. Additional findings as above. ACT 112: Negative or not required by law. The above report was generated using voice recognition software. It may contain grammatical, syntax or spelling errors. Electronically signed by: Ti Martinez M.D. 06/16/2020 2:06 PM MDM Narrative I did evaluate the patient as noted above. Patient is presenting with generalized weakness, vomiting and abdominal pain. On exam, however, he has no tenderness. IV access was established. I did treat the patient with Zofran IV and Levsin sublingually. I did place an order for continuous cardiac monitoring. The monitor showed normal sinus rhythm at a rate of 83 bpm. I did order and personally review the patient's 12-lead EKG as described above. I did order and personally reviewed the images of the patient's chest x-ray as described above. I did order a urine analysis. I did order and review the patient's blood work as noted in the electronic medical record. His white blood cell count is 10.9. Hemoglobin is stable at 13.8. Electrolytes demonstrate hyponatremia. His creatinine is 5.85 consistent with end-stage renal disease. Potassium is within normal limits. I did order a CT of the abdomen and pelvis. I did review the images myself as well as the radiology report as described above. There is no evidence of acute process within the abdomen. He has an enlarged prostate. He also has nonobstructing right nephrolithiasis. There is no evidence of bowel obstruction. I did reassess the patient. He still states that he feels extremely weak and nauseous. I did give him additional Zofran IV as well as normal saline IV. He continues to state that he cannot eat or drink anything and feels too weak. He will therefore be hospitalized for further care and evaluation. I did discuss the case with the hospitalist and lead case manager. COVID-19 testing was negative. Impression & Plan Abdominal pain, ESRD on dialysis, Intractable vomiting, Generalized weakness, H yponatremia Discharge Plan Visit Data Chief Complaint: Vomiting Stated Complaint: NAUSEA/VOMITING,SWEATING ED Provider: Dionicio Pappas Discharge Problem: Abdominal pain, ESRD on dialysis, Intractable vomiting, Generalized weakness, Hyponatremia Patient Disposition: Being Evaluated by Hospitalist Forms Stand Alone Forms: My [facility] Prescriptions Prescriptions: No Action bupropion HCl 100 mg tablet sustained-release 12 hr 100 mg PO QAM RF: 0 (DME) Contour Next Test Strips Strip See Dose Instructions .ROUTE .MEDSUPPLY Qty: 300 RF: 3 (DME) pen needle, diabetic [BD Ultra-Fine Annalise Pen Needle] 32 gauge x 5/32" needle See Rx Instructions .ROUTE .MEDSUPPLY Qty: 500 RF: 3 prochlorperazine maleate 5 mg tablet 5 mg PO Q8H PRN (Reason: nausea and vomiting) Qty: 10 RF: 1 metoclopramide HCl 5 mg tablet 5 mg PO BID RF: 0 lorazepam 0.5 mg tablet 0.5 mg PO Q12 PRN (Reason: Anxiety) RF: 0 carvedilol 25 mg tablet 37.5 mg PO BID Qty: 0 RF: 0 amlodipine 10 mg tablet 10 mg PO QAM Qty: 1 RF: 1 acetaminophen [Acetaminophen Extra Strength] 500 mg Tablet 500 mg PO Q6H MDD 3000 MG/DAY PRN (Reason: Fever Or Pain) RF: 0 insulin aspart U-100 [Novolog Flexpen U-100 Insulin] 100 unit/mL (3 mL) insulin pen 1 unit SUBCUT UD PRN (Reason: sliding scale) RF: 0 Velphoro 500 mg tablet,chewable 500 mg PO AC RF: 0 Basaglar KwikPen U-100 Insulin 100 unit/mL (3 mL) insulin pen 12 unit SUBCUT QAM RF: 0 pantoprazole 40 mg Tablet,Delayed Release (Dr/Ec) 40 mg PO BID Qty: 60 RF: 0 sertraline 100 mg tablet 100 mg PO QAM RF: 0 Referrals Referrals: Abbi Ames MD [Primary Care Provider] -
[2020-06-16 13:42] LABS: Basophils # (auto) 0.03 K/uL (0-0.2); Basophils % (auto) 0.3 %; Eosinophils % (auto) 0.9 %; Hematocrit (blood only) 39.9 % (42-52); Hemoglobin 13.8 g/dL (14.0-18.0); Immature Granulocytes # (auto) 0.04 K/uL (0.00-0.02); Immature Granulocytes % (auto) 0.4 %; Lymphocytes # (auto) 1.11 K/uL (1.2-3.4); Lymphocytes % (auto) 10.1 %; Mean Corpuscular Hemoglobin 32.9 pg (25-34); Mean Corpuscular Hgb Conc 34.6 g/dL (32-36); Mean Platelet Volume 9.2 fL (7.4-10.4); Monocytes # (auto) 0.48 K/uL (0.11-0.59); Monocytes % (auto) 4.4 %; Neutrophils % (auto) 83.9 %; Platelet Count 334 K/uL (130-400); RDW Coefficient of Variation 12.4 % (11.5-14.5); RDW Standard Deviation 42.6 fL (36.4-46.3); White Blood Count 10.96 K/uL (4.8-10.8)
--- NOTE | 2020-06-16 14:07 | CT Scan Report ---
ABDOMEN AND PELVIS CT WITHOUT CONTRAST CT DOSE: 295.72 mGy.cm HISTORY: Acute generalized abdominal pain with nausea and vomiting pain eval for obstruction TECHNIQUE: Multiaxial CT images of the abdomen and pelvis were performed without contrast. A dose lo wering technique was utilized adhering to the principles of ALARA. COMPARISON STUDY: CT abdomen and pelvis 03/07/2020 FINDINGS: Clear lung bases. There is no pneumatosis or pneumoperitoneum. The imaged inferior cardiac chambers are unremarkable with artery calcifications and trace pericardial effusion. The unenhanced s pleen, pancreas, adrenal glands, gallbladder and liver appear unremarkable. Probable cyst of the superior pole left kidney, 1.4 cm. Mild nonspecific bilateral perinephric strand ing. 6 mm nonobstructing calculus of the inferior pole right kidney. No ureteral calculi or obstructi ve uropathy. Mild prostamegaly. Urinary bladder wall thickening with partial distention. Mild calcifi ed plaque of the abdominal aorta without aneurysm. There is no adenopathy. Mild nonspecific distal esophageal wall thickening. Appendectomy. No definite bowel obstruction or hugo wel wall thickening. No acute fracture. Intertrochanteric nail the right femur. Schmorl's nodes with remote compression deformities are noted at T11, T12 and L5 which appear unchanged from comparison. IMPRESSION: 1. Limited exam without the use of contrast. 2. No bowel obstruction or bowel wall thickening. 3. Prior appendectomy. 4. Nonobstructing right nephrolithiasis. 5. Prostamegaly with urinary bladder wall thickening. Correlate with urinalysis. 6. Additional findings as above. ACT 112: Negative or not required by law. The above report was generated using voice recognition software. It may contain grammatical, syntax o r spelling errors. Electronically signed by: Ti Martinez M.D. 06/16/2020 2:06 PM
[2020-06-16 14:08] LABS: Albumin Globulin Ratio 1.2 (0.9-2); Albumin Level 4.2 gm/dl (3.4-5.0); BUN Creatinine Ratio 5.5 (10-20); Bilirubin,Total 0.7 mg/dl (0.2-1); Calcium 9.8 mg/dl (8.5-10.1); Creatinine Clr Calc Pharmacy 13.8 ml/min; Est GFR (African American) 12.1; Est GFR (Non-African American) 10.4; Globulin 3.6 gm/dl (2.5-4.0); Potassium 3.7 mmol/L (3.5-5.1); Total Protein 7.8 gm/dl (6.4-8.2)
[2020-06-16] MEDS ORDERED: SODIUM CHLORIDE 0.9% 250 ML IV ONE (14:17)
[2020-06-16] MEDS ORDERED: PANTOprazole 40 MG in SYRINGE 0 ML IV ONE (15:30)
--- NOTE | 2020-06-16 15:45 | History & Physical Report ---
Date of Service June 16, 2020 Assessment & Plan (1) Nausea and vomiting: Secondary to severe gastroparesis, although on this occasion vertigo also possibly driving this. Switch metoclopramide to scheduled IV dosing Continue compazine PRN as he usually finds this most helpful Continue his Velphoro for gastroparesis Switch pantoprazole to IV given history of severe esophagitis on last EGD Trial lorazepam for anxiety and vertigo to also see if this helps his nausea although his tiredness may limit this use. (2) Vertigo: CT head to assess for central cause. No hearing problems to suggest meniere's TM normal b/l, therefore no otitis media. (3) Diabetic gastroparesis associated with type 1 diabetes mellitus: HbA1C 6.7 in February Consult pharmacy for glycemic control (4) End stage renal disease on dialysis due to type 1 diabetes mellitus: Consult nephrology for dialysis management. No urgent need for this. (5) Anxiety: Continue his usual sertraline, bupropion and switch lorazepam to IV. (6) Hypertension: Hypertensive urgency in the ER. Continue amlodipine 10mg PO daily. Switch carvedilol for IV metoprolol due to limited ability to take PO meds Start Enalaprilat 2.5mg IV Q6H (previously advised on last admission by nephrology). (7) Severe protein-calorie malnutrition: Shaving Machine Operator consult once able to eat and drink. Admission and Anticipated Discharge Date Admission Date: Jun 16, 2020 History of Present Illness Chief Complaint: Intractable nausea and vomiting Primary Care Provider: Abbi Ames MD Jorge Alberto Vega is a 49-year-old male well-known to this service with end- stage renal disease on dialysis and severe gastroparesis secondary to type 1 diabetes. His current presentation with intractable nausea and vomiting is very similar to previous admissions although the patient notes a room spinning sensation that he does not usually have. He was able to undertake dialysis yesterday but is unsure how much fluid was taken off. He felt well after this. However, this morning he woke up with intractable nausea and vomiting with associated generalized abdominal pain. Abdominal pain is constant/cramping, no radiation. He denies any headache, chest pain, produces minimal amount of urine but no change in this, no cough, loss of taste or smell, ear pain, loss of hearing. With his vertigo he feels better when he closes his eyes. Allergies Allergy/AdvReac Type Severity Reaction Status Date / Time shellfish derived Allergy Severe anaphylaxis Verified 06/16/20 14:23 codeine Allergy Intermediate Hives Verified 06/16/20 14:23 promethazine Allergy Intermediate itchy/hives Verified 06/16/20 14:23 Home Medications Medication Instructions Recorded Confirmed Type sertraline 100 mg PO QAM 03/21/19 06/16/20 History bupropion HCl 100 mg tablet,12 hr 100 mg PO QAM ea 04/14/19 06/16/20 History sustained-release acetaminophen [Acetaminophen Extra 500 mg PO Q6H PRN MDD 3000 MG/DAY 07/13/19 06/16/20 History Strength] lorazepam 0.5 mg tablet 0.5 mg PO Q12 PRN tab 07/25/19 06/16/20 History Contour Next Test Strips #300 ea NS 10/26/19 06/16/20 Rx pen needle, diabetic 32 gauge x #500 ea 01/25/20 06/16/20 Rx 5/32" insulin aspart U-100 [Novolog 1 unit SUBCUT UD PRN 02/01/20 06/16/20 History Flexpen U-100 Insulin] pantoprazole 40 mg PO BID #60 tab 03/12/20 06/16/20 Rx prochlorperazine maleate 5 mg 5 mg PO Q8H PRN #10 tab 04/06/20 06/16/20 Rx tablet amlodipine 10 mg tablet 10 mg PO QAM #1 tab 05/29/20 06/16/20 Rx carvedilol 25 mg tablet 37.5 mg PO BID #0 tab 05/29/20 06/16/20 Rx insulin glargine 100 unit/mL (3 12 unit SUBCUT QAM ml 06/13/20 06/16/20 History mL) subcutaneous pen metoclopramide HCl 5 mg tablet 5 mg PO BID tab 06/13/20 06/16/20 History sucroferric oxyhydroxide 500 mg 500 mg PO AC 06/13/20 06/16/20 History chewable tablet Past Med/Surg History Medical History Anemia of chronic disease Anxiety AV fistula left arm CAD (coronary artery disease) mild, non-obstructive CAD per 10/2018 cardiac cath> [facility] Depression Depression Diabetic neuropathy Diabetic retinopathy Dialysis patient DKA (diabetic ketoacidoses) DKA (diabetic ketoacidoses) Esophagitis ESRD (end stage renal disease) M,W,F (Follows with Dr. Taylor Higgins; [facility]/[place]) ESRD on dialysis Gastroparesis GERD (gastroesophageal reflux disease) Hematemesis Hypertension Hypertensive urgency Kidney stones Lumbar compression fracture Lumbar radiculopathy Peripheral neuropathy Retinopathy due to secondary diabetes Severe protein-calorie malnutrition Surgical History H/O shoulder surgery RIGHT History of appendectomy History of cardiac cath 10/2018= no stents, no obstructive disease (at [facility]) History of esophagogastroduodenoscopy (EGD) History of hip surgery left HIP ARTHROSCOPY History of lithotripsy History of open reduction and internal fixation (ORIF) procedure right hip Nausea and vomiting after administration of anesthetic agent Permanent central venous catheter in place Permacath and since has been removed Family History Grandfather Myocardial infarction Grandfather (Maternal) Family history of diabetes mellitus Uncle Myocardial infarction Denies family history of Colon cancer Ovarian cancer Prostate cancer Breast cancer Social History Smoking Status: Never smoker Second Hand Exposure: No; Hx Alcohol Use: No Hx Substance Use: No Preferred Language: Estonian Communication Ability: Effective Visual Impairment: No Limitations Hearing Ability: Normal Assistant Teacher Required: No Beliefs That Will Affect Care: None marital status: Single Current Living Situation: Family current occupational status: disabled How many Children do You have: 2 Other Information That Helps Us Care for You: No Feels Safe at Home: Yes Safety Concerns: Feels Safe At This Time Childhood Exposure to Second-Hand Smoke: Yes Dental Care, Regularly: No Physical Activity Frequency: 1-2 Times per Week Seatbelt Use: always Sunscreen Use: No Assistive Devices: Glasses Review of Systems Review of Systems: All systems reviewed & are unremarkable except as noted in HPI & below Physical Exam Constitutional: well developed and + acute distress (nausea); + not well nourished Closing eyes Eyes: + anicteric sclerae; normal pupil size ENMT: Mouth: + dry oral mucous membranes Neck: trachea midline, no thyromegaly Respiratory: normal respiratory effort, lungs clear to auscultation Cardiovascular: Rate/Rhythm: regular rate and regular rhythm Heart Sounds: no murmur Extremities: normal capillary refill; no calf tenderness and no pedal edema Gastrointestinal (Abdomen): Inspection/Auscultation: abdomen normal to inspection and + hypoactive bowel sounds; abdomen not distended Percussion/Palpation: + abdomen tender (generalized) and abdomen soft; no guarding and abdomen not rigid Musculoskeletal: no cyanosis or clubbing, extremities motor strength 5/5 Skin: no rashes, warm and dry Neurologic: moves all extremities and awake; not confused Psychiatric: Orientation: alert and oriented x 3 Affect: euthymic affect (in pain with nausea) Results & Data Results & Data ([facility]) Vital Signs (Past 12 Hours) Vital Signs Temp Pulse Resp BP Pulse Ox 06/16/20 14:18 75 17 100 06/16/20 14:16 74 18 198/79 H 100 06/16/20 12:04 36.6 C 68 20 168/[address] head/brain wo con IMPRESSION: 1. No acute intracranial abnormality. 2. 5 mm lesion of the left vitreous space lateral to and possibly involving the optic disc. Ophthalmology follow-up recommended. XR chest 1V portable IMPRESSION: No acute process. ABDOMEN AND PELVIS CT WITHOUT CONTRAST IMPRESSION: 1. Limited exam without the use of contrast. 2. No bowel obstruction or bowel wall thickening. 3. Prior appendectomy. 4. Nonobstructing right nephrolithiasis. 5. Prostamegaly with urinary bladder wall thickening. Correlate with urinalysis. 6. Additional findings as above. ECG Indication: abdominal pain Rate (beats per minute): 84 Rhythm: normal sinus Findings: + prolonged QT (QTc 512ms); no acute ischemic change Comparison ECG Date: from (March 07, 2020) Change: no significant change Code Status & VTE Plan Code Status Full VTE Prophylaxis Plan VTE Prophylaxis will be ordered: No PG Care Time/CCT Total # of Minutes Spent Total Time Spent with Patient: Total time spent is greater than 50% in coordination of care (as documented) at patient's floor/unit and/or counseling patient: Coding Level of Care Code 99788 OBS Care - Level 2 Diagnoses Nausea and vomiting R11.2 Vertigo R42 Diabetic gastroparesis associated with type 1 diabetes mellitus E10.43; K31.84 End stage renal disease on dialysis due to type 1 diabetes mellitus E10.22; N18.6; Z99.2 Anxiety F41.9 Hypertension I10 Hypertension type: unspecified Severe protein-calorie malnutrition E43 (1) Hypertension Hypertension type: unspecified Qualified Code(s): I10 - Essential (primary) hypertension
[2020-06-16] MEDS ORDERED: PROCHLORPERAZINE 5 MG in SYRINGE 4 ML IV STA (15:51)
[2020-06-16] MEDS ORDERED: hydrALAZINE HCL 20 MG/ML VIAL IV STA (15:51)
[2020-06-16] MEDS ORDERED: LORazepam 0.5 MG/1 ML VIAL IV STA (15:55)
--- NOTE | 2020-06-16 16:31 | XRay Report ---
XR chest 1V portable HISTORY: 49 years-old Male shortness of breath acute shortness of breath COMPARISON: Chest radiograph 03/07/2020 TECHNIQUE: Portable AP view of the chest FINDINGS: Cardiomediastinal and hilar silhouettes are within normal limits. There is no pneumothorax, pleural e ffusion, airspace consolidation or overt pulmonary edema. Degenerative changes of the shoulders and s pine. Bones appear grossly intact. IMPRESSION: No acute process. ACT 112: Negative or not required by law. The above report was generated using voice recognition software. It may contain grammatical, syntax o r spelling errors. Electronically signed by: Ti Martinez M.D. 06/16/2020 4:30 PM
--- NOTE | 2020-06-16 17:03 | CT Scan Report ---
CT head/brain wo con CLINICAL HISTORY: 49 years-old Male with New onset vertigo. Acute new onset vertigo TECHNIQUE: Multiple axial CT images of the head were obtained without contrast. A dose lowering tech nique was utilized adhering to the principles of ALARA. CT DOSE: 537.48 mGy.cm COMPARISON: Head CT 03/31/2019 FINDINGS: No acute intracranial hemorrhage, midline shift, intracranial mass, hydrocephalus, territorial ischem ia or abnormal extra-axial collection. The calvarium is intact. Prior left-sided replacement. There is an ill-defined 5 mm ovoid lesion note d within the vitreous space of the left globe on image 5 series 3 just lateral to the optic disc. The paranasal sinuses, mastoid air cells, and middle ear cavities are clear. IMPRESSION: 1. No acute intracranial abnormality. 2. 5 mm lesion of the left vitreous space lateral to and possibly involving the optic disc. Ophthalmo logy follow-up recommended. ACT 112: Negative or not required by law. The above report was generated using voice recognition software. It may contain grammatical, syntax o r spelling errors. Electronically signed by: Ti Martinez M.D. 06/16/2020 5:01 PM
[2020-06-16] MEDS ORDERED: LORazepam 0.5 MG/1 ML VIAL IV PRN (19:14)
[2020-06-16] MEDS ORDERED: hydrALAZINE HCL 20 MG/ML VIAL IV PRN (19:14)
[2020-06-16] MEDS ORDERED: PHARMACY GLYCEMIC MGMT CONSULT PRN (19:20)
[2020-06-16] MEDS ORDERED: GLUCOSE 40% GEL 15 GM TUBE PO PRN (19:30)
[2020-06-16] MEDS ORDERED: GLUCAGON FOR INJ 1 MG VIAL IM PRN (19:30)
[2020-06-16] MEDS ORDERED: GLUCOSE 10 TABS/TUBE PO PRN (19:30)
[2020-06-16] MEDS: PROCHLORPERAZINE 5 MG in SYRINGE 4 ML IV PRN (19:40)
[2020-06-16] MEDS: ENALAPRILAT 2.5 MG in DEXTROSE 5% 25 ML IV SCH ×2 (19:46→23:53)
--- NOTE | 2020-06-16 19:55 | Pharmacy Report ---
Pharmacy Glycemic Short Note 2 - Date of Service June 16, 2020 - Glycemic Short BSG Results (Last 24 hours): 06/16/20 13:20 Glucose 167 H OUTPATIENT ANTIDIABETIC REGIMEN: * Lantus 12 units SC qAM * Novolog per sliding scale (1 unit for every 12 carbs, MDD 40 units) * HbA1c: 6.7% (03/05/20) * However, this result is likely somewhat unreliable in ESRD patients d/t interactions between the A1c analyzing technique and high levels of urea in ESRD, reduced RBC life span, iron deficiency anemia, and EPO administration. HbA1c > 7.5% in ESRD patient may overestimate the extent of hyperglycemia in ESRD patients. ASSESSMENT: * GERBER is a 49 year old male well known to the pharmacy glycemic service * Patient presents once again today with intractable nausea/vomiting secondary to long-standing gastroparesis * Pertinent PMH includes type 1 DM and ESRD (chronic HD on Thursday, Thursday, and Thursday) * BSG on presentation was 167 mg/dL, 231 mg/dL on the floor * Patient received 12 units of Lantus prior to admission * In the past, pharmacy has utilized q6h regular insulin rather than once daily basal doses due to extremely labile/unpredictable BSGs - will not utilize this evening as patient has already received Lantus PLAN FOR INPATIENT GLYCEMIC CONTROL: * Hold outpatient oral diabetes medications * Basal insulin * Lantus 12 units SC qAM - given prior to admission * Will need to reassess tomorrow (once/twice daily basal vs. q6h regular insulin) * Bolus insulin - Novolog for now * NovoLog per scale ACHS or Q6hrs while NPO * Goal Range: Low 110 mg/dL - High 150 mg/dL * Correction Factor: 40 mg/dL/unit * Nutritional / Prandial insulin per carb ratio of 1 unit per 12 grams CHO consumed
[2020-06-16] MEDS: METOCLOPRAMIDE HCL INJ 5 MG/ML 2 ML VIAL IV SCH (20:03)
[2020-06-16] MEDS: PANTOprazole 40 MG in SYRINGE 0 ML IV SCH (20:03)
[2020-06-16] MEDS: METOPROLOL TARTRATE 1 MG/ML VIAL IV SCH ×2 (20:08→23:55)
[2020-06-16] MEDS: INSULIN ASPART 100 UNITS/ML 3 ML PEN SC SCH (20:22)
[2020-06-16] MEDS: VELPHORO: ORDER AWAITING ACTION SCH (23:08)
[2020-06-17] MEDS: PROCHLORPERAZINE 5 MG in SYRINGE 4 ML IV PRN ×2 (00:19→04:19)
[2020-06-17] MEDS: INSULIN ASPART 100 UNITS/ML 3 ML PEN SC SCH ×2 (00:19→06:09)
[2020-06-17] MEDS: METOPROLOL TARTRATE 1 MG/ML VIAL IV SCH ×3 (03:48→12:42)
[2020-06-17] MEDS: ENALAPRILAT 2.5 MG in DEXTROSE 5% 25 ML IV SCH ×2 (06:09→12:42)
[2020-06-17] MEDS: VELPHORO: ORDER AWAITING ACTION SCH ×3 (08:40→23:56)
[2020-06-17] MEDS: PANTOprazole 40 MG in SYRINGE 0 ML IV SCH ×2 (09:30→22:13)
[2020-06-17] MEDS: METOCLOPRAMIDE HCL INJ 5 MG/ML 2 ML VIAL IV SCH ×3 (09:30→22:14)
[2020-06-17] MEDS: amLODIPine BESYLATE 5 MG TAB PO SCH (09:31)
[2020-06-17] MEDS: buPROPion SR 100 MG TABCR PO SCH (09:31)
[2020-06-17] MEDS: SERTRALINE HCL 100 MG TABLET PO SCH (09:32)
[2020-06-17] MEDS: INSULIN HUMAN REGULAR SC SCH ×4 (09:35→22:10)
--- NOTE | 2020-06-17 09:55 | Hospitalist Progress Note ---
Date of Service June 17, 2020 Assessment & Plan (1) Nausea and vomiting: Secondary to severe gastroparesis, although on this occasion vertigo also possibly driving this. Switch metoclopramide to scheduled IV dosing Continue compazine PRN as he usually finds this most helpful Continue his Velphoro for gastroparesis Switch pantoprazole to IV given history of severe esophagitis on last EGD Trial lorazepam for anxiety and vertigo to also see if this helps his nausea although his tiredness may limit this use. (2) Vertigo: CT head negative for central cause. No hearing problems to suggest meniere's TM normal b/l, therefore no otitis media. (3) Diabetic gastroparesis associated with type 1 diabetes mellitus: HbA1C 6.7 in February Consulted pharmacy for glycemic control (4) End stage renal disease on dialysis due to type 1 diabetes mellitus: Consult nephrology for dialysis management. No urgent need for this. (5) Anxiety: Continue his usual sertraline, bupropion and switch lorazepam to IV. (6) Hypertension: Hypertensive urgency in the ER. Continue amlodipine 10mg PO daily. 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 Admission and Anticipated Discharge Date Admission Date: June 16, 2020 Subjective Patient's vomiting has resolved he cannot describe an inciting event or changes in his routine or physical body prior to this occurring. He is on scheduled Reglan and is known to have some gastroparesis He ever feels well enough to begin taking liquid diet Review of Systems Review of Systems: Mild distress and fatigue no headache, blurry or double vision is having some crusting and redness to his eyes states he should be on Alphagan eyedrops no speech or swallowing issues no chest pain, pressure or palpitations no shortness of breath, cough or wheezes no abdominal pain, mild nausea without vomiting, no dysuria, hematuria or frequency no focal joint pain or swelling no back pain, CVA tenderness or radicular pain no bruising, bleeding or rashes no focal signs of weakness or numbness or altered sensation no complaints of anxiety or depression.. Physical Exam Physical Exam: The patient appeared chronically ill and weakened Vital signs as documented. Head exam is normocephalic atraumatic no scleral icterus Neck is without JVD, thyromegaly, or carotid bruits. Lungs are clear to auscultation, no focal loss of breath sounds Cardiac exam, Rhythm is regular.. No murmurs, rubs or gallops. Abdominal exam reveals normal bowel sounds, soft non tender, no masses Extremities are nonedematous and both pedal pulses are present Neurologic exam is alert and oriented, no focal loss of strength or sensation Skin is without bruises or rashes Psychologically is without concerns for anxiety or depression. Results & Data Results & Data ([facility]) Vital Signs (Past 12 Hours) Vital Signs Temp Pulse Pulse Resp BP BP BP 06/17/20 08:20 98.6 F 80 16 114/64 06/17/20 03:48 83 164/68 H 06/17/20 00:28 87 06/16/20 23:55 52 L 170/79 H 06/16/20 22:27 98.2 F 89 18 177/78 H Pulse Ox 06/17/20 08:20 97 06/17/20 03:48 06/17/20 00:28 06/16/20 23:55 06/16/20 22:27 99 PG Care Time/CCT Total # of Minutes Spent Total Time Spent with Patient: Total time spent is greater than 50% in coordination of care (as documented) at patient's floor/unit and/or counseling patient: Coding Level of Care Code 69440 Subseq Hosp Care Lvl 3 Diagnoses Nausea and vomiting R11.2 Vertigo R42 Diabetic gastroparesis associated with type 1 diabetes mellitus E10.43; K31.84 End stage renal disease on dialysis due to type 1 diabetes mellitus E10.22; N18.6; Z99.2 Anxiety F41.9 Hypertension I10 Hypertension type: unspecified Severe protein-calorie malnutrition E43 (1) Hypertension Hypertension type: unspecified Qualified Code(s): I10 - Essential (primary) hypertension
--- NOTE | 2020-06-17 10:57 | Nephrology Consultation ---
Date of Consultation June 17, 2020 Assessment & Plan (1) End stage renal disease on dialysis due to type 1 diabetes mellitus: Patient with ESRD on dialysis Thursday. His last outpatient dialysis was on Thursday which was uneventful. His electrolytes are stable and no signs of volume overload. No indication for dialysis today. -Next dialysis will be tomorrow for 3-1/2 hours to get UF 1 L (2) Diabetic gastroparesis associated with type 1 diabetes mellitus: Patient with the diabetic gastroparesis and recurrent hospitalizations for vomiting. Continue symptomatic management for vomiting and nausea. Will limit ultrafiltration during dialysis. History of Present Illness Reason for Consultation: ESRD on dialysis Requesting Physician: Dionicio Haro MD Attending Physician: Dionicio Haro MD History of Present Illness This is a 49-year-old male with history of hypertension, type 2 diabetes, g astroparesis and ESRD on dialysis Thursday using a left upper arm AV fistula who was admitted on 06/16/2020 with vomiting. He was managed conservatively with antiemetics. His blood pressure was high. He received IV antihypertensives. He feels better this morning denies any nausea or vomiting. No diarrhea. No shortness of breath. His last dialysis was on Thursday which was uneventful. Allergies Allergy/AdvReac Type Severity Reaction Status Date / Time shellfish derived Allergy Severe anaphylaxis Verified 06/16/20 14:23 codeine Allergy Intermediate Hives Verified 06/16/20 14:23 promethazine Allergy Intermediate itchy/hives Verified 06/16/20 14:23 Home Medications Medication Instructions Recorded Confirmed Type sertraline 100 mg PO QAM 03/21/19 06/16/20 History bupropion HCl 100 mg tablet,12 hr 100 mg PO QAM ea 04/14/19 06/16/20 History sustained-release acetaminophen [Acetaminophen Extra 500 mg PO Q6H PRN MDD 3000 MG/DAY 07/13/19 06/16/20 History Strength] lorazepam 0.5 mg tablet 0.5 mg PO Q12 PRN tab 07/25/19 06/16/20 History Contour Next Test Strips #300 ea NS 10/26/19 06/16/20 Rx pen needle, diabetic 32 gauge x #500 ea 01/25/20 06/16/20 Rx 5/32" insulin aspart U-100 [Novolog 1 unit SUBCUT UD PRN 02/01/20 06/16/20 History Flexpen U-100 Insulin] pantoprazole 40 mg PO BID #60 tab 03/12/20 06/16/20 Rx prochlorperazine maleate 5 mg 5 mg PO Q8H PRN #10 tab 04/06/20 06/16/20 Rx tablet amlodipine 10 mg tablet 10 mg PO QAM #1 tab 05/29/20 06/16/20 Rx carvedilol 25 mg tablet 37.5 mg PO BID #0 tab 05/29/20 06/16/20 Rx insulin glargine 100 unit/mL (3 12 unit SUBCUT QAM ml 06/13/20 06/16/20 History mL) subcutaneous pen metoclopramide HCl 5 mg tablet 5 mg PO BID tab 06/13/20 06/16/20 History sucroferric oxyhydroxide 500 mg 500 mg PO AC 06/13/20 06/16/20 History chewable tablet Patient History Medical History Anemia of chronic disease Anxiety AV fistula left arm CAD (coronary artery disease) mild, non-obstructive CAD per 10/2018 cardiac cath> [facility] Depression Depression Diabetic neuropathy Diabetic retinopathy Dialysis patient DKA (diabetic ketoacidoses) DKA (diabetic ketoacidoses) Esophagitis ESRD (end stage renal disease) M,W,F (Follows with Dr. Taylor Higgins; [facility]) ESRD on dialysis Gastroparesis GERD (gastroesophageal reflux disease) Hematemesis Hypertension Hypertensive urgency Kidney stones Lumbar compression fracture Lumbar radiculopathy Peripheral neuropathy Retinopathy due to secondary diabetes Severe protein-calorie malnutrition Surgical History H/O shoulder surgery RIGHT History of appendectomy History of cardiac cath 10/2018= no stents, no obstructive disease (at [facility]) History of esophagogastroduodenoscopy (EGD) History of hip surgery left HIP ARTHROSCOPY History of lithotripsy History of open reduction and internal fixation (ORIF) procedure right hip Nausea and vomiting after administration of anesthetic agent Permanent central venous catheter in place Permacath and since has been removed Family History Grandfather Myocardial infarction Grandfather (Maternal) Family history of diabetes mellitus Uncle Myocardial infarction Denies family history of Colon cancer Ovarian cancer Prostate cancer Breast cancer Social History Smoking Status: Never smoker Second Hand Exposure: No; Hx Alcohol Use: No Hx Substance Use: No Preferred Language: Sinhala Communication Ability: Effective Visual Impairment: No Limitations Hearing Ability: Normal Armhole Sewer Required: No Beliefs That Will Affect Care: None marital status: Single Current Living Situation: Family current occupational status: disabled How many Children do You have: 2 Other Information That Helps Us Care for You: No Feels Safe at Home: Yes Safety Concerns: Feels Safe At This Time Childhood Exposure to Second-Hand Smoke: Yes Dental Care, Regularly: No Physical Activity Frequency: 1-2 Times per Week Seatbelt Use: always Sunscreen Use: No Assistive Devices: Glasses Review of Systems Review of Systems: All systems reviewed & are unremarkable except as noted in HPI & below Physical Exam Physical Exam: General exam: Appears comfortable, no acute distress HEENT: Pupils are equal and reactive to light Neck: No JVD, neck is supple trachea is midline Respiratory system: Clear breath sounds bilaterally. Gastrointestinal: Abdomen is soft, non distended, non tender, bowel sounds are present CVS: Regular rate and rhythm. No murmurs, rubs or gallops Musculoskeletal: No joint or muscle tenderness Extremities: Non tender, no edema, peripheral pulses are present Neuro: Oriented, no tremors, no focal neurological deficits Skin: No rashes Access: Left upper arm AV fistula Results & Data ([facility]) Vital Signs (Past 12 Hours) Vital Signs Temp Pulse Pulse Resp BP BP Pulse Ox 06/17/20 08:20 37.0 C 80 16 114/64 97 06/17/20 03:48 83 164/68 H 06/17/20 00:28 87 06/16/20 23:55 52 L 170/79 H Laboratory Results 06/16/20 13:20 06/16/20 06/16/20 13:20 13:20 WBC 10.96 H RBC 4.20 L MCV 95.0 MCH 32.9 MCHC 34.6 RDW Std Deviation 42.6 RDW Coeff of Kami 12.4 Plt Count 334 MPV 9.2 Albumin 4.2
--- NOTE | 2020-06-17 11:03 | Electrocardiogram Report ---
Test Reason : Blood Pressure : / mmHG Vent. Rate : 084 BPM Atrial Rate : 084 BPM P-R Int : 178 ms QRS Dur : 102 ms QT Int : 434 ms P-R-T Axes : 056 072 067 degrees QTc Int : 512 ms Normal sinus rhythm Possible Left atrial enlargement Left ventricular hypertrophy Prolonged QT Abnormal ECG When compared with ECG of 07-MAR-2020 12:24, No significant change was found Confirmed by Dewayne Spivey ([id number]) on 06/17/2020 11:03:15 AM Referred By: REFERRED SELF Confirmed By:Pee Spivey
[2020-06-17] MEDS ORDERED: METOPROLOL TARTRATE 1 MG/ML VIAL IV PRN (12:47)
[2020-06-17] MEDS: CARBOHYDRATES FOR HYPOGLYCEMIA PO PRN (15:12)
--- NOTE | 2020-06-17 15:18 | Pharmacy Report ---
Pharmacy Glycemic Short Note 2 - Date of Service June 17, 2020 - Glycemic Short BSG Results (Last 24 hours): 06/16/20 06/16/20 06/17/20 19:43 23:54 05:57 POC Glucose 231 H 221 H 233 H 06/17/20 06/17/20 06/17/20 11:37 15:07 15:07 POC Glucose 158 H 37 L* 42 L* OUTPATIENT ANTIDIABETIC REGIMEN: * Lantus 12 units SC qAM * Novolog per sliding scale (1 unit for every 12 carbs, MDD 40 units) * HbA1c: 6.7% (03/05/20) * However, this result is likely somewhat unreliable in ESRD patients d/t interactions between the A1c analyzing technique and high levels of urea in ESRD, reduced RBC life span, iron deficiency anemia, and EPO administrat ion. HbA1c > 7.5% in ESRD patient may overestimate the extent of hyperglycemia in ESRD patients. ASSESSMENT: 06/17: * Patient hyperglycemic overnight * Remains NPO * Will transition from Lantus + Novolog to regular insulin scheduled q6h (based on previous admission data) 06/16: * GERBER is a 49 year old male well known to the pharmacy glycemic service * Patient presents once again today with intractable nausea/vomiting secondary to long-standing gastroparesis * Pertinent PMH includes type 1 DM and ESRD (chronic HD on Thursday, Thursday, and Thursday) * BSG on presentation was 167 mg/dL, 231 mg/dL on the floor * Patient received 12 units of Lantus prior to admission * In the past, pharmacy has utilized q6h regular insulin rather than once daily basal doses due to extremely labile/unpredictable BSGs - will not utilize this evening as patient has already received Lantus PLAN FOR INPATIENT GLYCEMIC CONTROL: * Hold outpatient oral diabetes medications * Basal insulin * d/c lantus * Regular insulin SQ q6h per scale: * 3 units for < 130 * 4 units for 130-180 * 5 units for > 180 * Bolus insulin - tighten * Regular insulin per scale ACHS or Q6hrs while NPO * Goal Range: Low 110 mg/dL - High 150 mg/dL * Correction Factor: 25 mg/dL/unit
[2020-06-17] MEDS: DEXTROSE 50% 50 ML SYRINGE IV PRN (15:29)
[2020-06-17] MEDS: BRIMONIDINE TARTRATE 0.2% 5ML OP SCH (22:15)
[2020-06-18] MEDS: CARBOHYDRATES FOR HYPOGLYCEMIA PO PRN (02:15)
[2020-06-18] MEDS: DEXTROSE 50% 50 ML SYRINGE IV PRN (02:35)
[2020-06-18] MEDS ORDERED: SODIUM CHLORIDE 0.9% 1000ML 1,000 ML IV PRN (07:00)
[2020-06-18] MEDS ORDERED: HEPARIN SOD (PORCINE) 1000 UNIT/ML 10 ML VIAL IV ONE (07:00)
[2020-06-18] MEDS: PANTOprazole 40 MG in SYRINGE 0 ML IV SCH ×2 (09:03→21:21)
[2020-06-18] MEDS: METOCLOPRAMIDE HCL INJ 5 MG/ML 2 ML VIAL IV SCH (09:04)
[2020-06-18] MEDS: BRIMONIDINE TARTRATE 0.2% 5ML OP SCH ×3 (09:05→21:21)
[2020-06-18] MEDS: VELPHORO: ORDER AWAITING ACTION SCH ×2 (09:05→16:20)
[2020-06-18] MEDS: INSULIN HUMAN REGULAR SC SCH ×4 (09:15→18:05)
[2020-06-18] MEDS: HEPARIN SOD (PORCINE) 1000 UNIT/ML 10 ML VIAL IV SCH (09:56)
--- NOTE | 2020-06-18 12:02 | Dialysis Progress Note ---
Date of Service June 18, 2020 Assessment & Plan (1) End stage renal disease on dialysis due to type 1 diabetes mellitus: Patient with ESRD on dialysis Thursday. His last out patient dialysis was on Thursday which was uneventful. His electrolytes are stable and no signs of volume overload. Not much UF tolerance today at dialysis and fluid removed will be 1L or less. chemistries and volume status acceptable -Next dialysis will be 06/20 or as clinically indicated (2) Diabetic gastroparesis associated with type 1 diabetes mellitus: Patient with the diabetic gastroparesis and recurrent hospitalizations for vomiting. Continue symptomatic management for vomiting and nausea. Will limit ultrafiltration during dialysis. Admission and Anticipated Discharge Date Admission Date: June 16, 2020 Subjective seen on dialysis at 1105; resting comfortably; no pain, no sob; sbp on lower side and uf target reduced Review of Systems Review of Systems: All systems reviewed & are unremarkable except as noted in Subjective Physical Exam Constitutional: well developed and + thin; no acute distress Eyes: EOM intact bilaterally ENMT: Ears: no external ear abnormality Nose: no external nose abnormality Mouth: + dry oral mucous membranes Neck: no nuchal rigidity Respiratory: normal respiratory effort Auscultation: lungs clear to auscult ation bilaterally and + diminished lung sounds Cardiovascular: RRR, no murmur, no edema Gastrointestinal (Abdomen): Inspection/Auscultation: normal bowel sounds Percussion/Palpation: abdomen soft; abdomen nontender Musculoskeletal: Extremities: strength 5/5 throughout Skin: no rashes, warm and dry Neurologic: spicer, fluent speech, no tremor Results & Data ([facility]) Vital Signs (Past 12 Hours) Vital Signs Temp Pulse Pulse Pulse Resp BP BP 06/18/20 11:20 81 86/50 L 06/18/20 11:00 81 82/52 L 06/18/20 10:40 81 80/49 L 06/18/20 10:20 82 86/49 L 06/18/20 10:00 80 92/52 L 06/18/20 09:40 79 109/60 06/18/20 09:35 36.7 C 82 06/18/20 07:28 36.7 C 80 20 119/63 06/18/20 04:25 36.5 C 69 16 115/62 Pulse Ox 06/18/20 11:20 06/18/20 11:00 06/18/20 10:40 06/18/20 10:20 06/18/20 10:00 06/18/20 09:40 06/18/20 09:35 06/18/20 07:28 95 06/18/20 04:25 97 Laboratory Results 06/16/20 13:20 06/16/20 13:20
--- NOTE | 2020-06-18 12:33 | Hospitalist Progress Note ---
Date of Service June 18, 2020 Assessment & Plan (1) Nausea and vomiting: Secondary to severe gastroparesis,plus vertigo, stopping scheduled metoclopramide 06/18/20 Continue compazine PRN as he usually finds this most helpful Continue his Velphoro for gastroparesis Switch pantoprazole to IV given history of severe esophagitis on last EGD lorazepam for anxiety and vertigo (2) Vertigo: CT head negative for central cause. No hearing problems to suggest meniere's TM normal b/l, therefore no otitis media. (3) Diabetic gastroparesis associated with type 1 diabetes mellitus: HbA1C 6.7 in February Consulted pharmacy for glycemic control (4) End stage renal disease on dialysis due to type 1 diabetes mellitus: Consult nephrology for dialysis management. No urgent need for this. (5) Anxiety: Continue his usual sertraline, bupropion and lorazepam to IV. (6) Hypertension: Hypertensive urgency in the ER. Continue amlodipine 10mg PO daily. (7) Severe protein-calorie malnutrition: Industrial Sociologist consult once able to eat and drink. Admission and Anticipated Discharge Date Admission Date: June 16, 2020 Subjective pt was much more awake and alert, encouraged to advance diet and going to dialysis today Review of Systems Review of Systems: Mild distress and fatigue no headache, blurry or double vision eyes have improved with eye drops no speech or swallowing issues no chest pain, pressure or palpitations no shortness of breath, cough or wheezes no abdominal pain, mild nausea without vomiting, no dysuria, hematuria or frequency no focal joint pain or swelling no back pain, CVA tenderness or radicular pain no bruising, bleeding or rashes no focal signs of weakness or numbness or altered sensation no complaints of anxiety or depression.. Physical Exam Physical Exam: The patient appeared to be more awake with more energy Vital signs as documented. Head exam is normocephalic atraumatic no scleral icterus Neck is without JVD, thyromegaly, or carotid bruits. Lungs are clear to auscultation, no focal loss of breath sounds Cardiac exam, Rhythm is regular.. No murmurs, rubs or gallops. Abdominal exam reveals normal bowel sounds, soft non tender, no masses Extremities are nonedematous and both pedal pulses are present Neurologic exam is alert and oriented, no focal loss of strength or sensation Skin is without bruises or rashes Psychologically is without concerns for anxiety or depression. Results & Data Results & Data ([facility]) Vital Signs (Past 12 Hours) Vital Signs Temp Pulse Pulse Pulse Resp BP BP 06/18/20 12:03 80 84/50 L 06/18/20 11:20 81 86/50 L 06/18/20 11:00 81 82/52 L 06/18/20 10:40 81 80/49 L 06/18/20 10:20 82 86/49 L 06/18/20 10:00 80 92/52 L 06/18/20 09:40 79 109/60 06/18/20 09:35 98.1 F 82 06/18/20 07:28 98.1 F 80 20 119/63 06/18/20 04:25 97.7 F 69 16 115/62 Pulse Ox 06/18/20 12:03 06/18/20 11:20 06/18/20 11:00 06/18/20 10:40 06/18/20 10:20 06/18/20 10:00 06/18/20 09:40 06/18/20 09:35 06/18/20 07:28 95 06/18/20 04:25 97 PG Care Time/CCT Total # of Minutes Spent Total Time Spent with Patient: Total time spent is greater than 50% in coordination of care (as documented) at patient's floor/unit and/or counseling patient: Coding Level of Care Code 40217 Subseq Hosp Care Lvl 2 Diagnoses Nausea and vomiting R11.2 Vertigo R42 Diabetic gastroparesis associated with type 1 diabetes mellitus E10.43; K31.84 End stage renal disease on dialysis due to type 1 diabetes mellitus E10.22; N18.6; Z99.2 Anxiety F41.9 Hypertension I10 Hypertension type: unspecified Severe protein-calorie malnutrition E43 (1) Hypertension Hypertension type: unspecified Qualified Code(s): I10 - Essential (primary) hypertension
[2020-06-18] MEDS: SERTRALINE HCL 100 MG TABLET PO SCH (14:03)
[2020-06-18] MEDS: buPROPion SR 100 MG TABCR PO SCH (14:04)
[2020-06-18] MEDS: amLODIPine BESYLATE 5 MG TAB PO SCH (14:04)
[2020-06-19] MEDS: INSULIN HUMAN REGULAR SC SCH ×5 (00:24→11:42)
[2020-06-19] MEDS: VELPHORO: ORDER AWAITING ACTION SCH ×2 (00:26→08:56)
[2020-06-19] MEDS: PANTOprazole 40 MG in SYRINGE 0 ML IV SCH (08:56)
[2020-06-19] MEDS: buPROPion SR 100 MG TABCR PO SCH (08:56)
[2020-06-19] MEDS: amLODIPine BESYLATE 5 MG TAB PO SCH (08:57)
[2020-06-19] MEDS: SERTRALINE HCL 100 MG TABLET PO SCH (08:57)
[2020-06-19] MEDS: BRIMONIDINE TARTRATE 0.2% 5ML OP SCH ×2 (08:57→14:20)
[2020-06-19] MEDS: PROCHLORPERAZINE 5 MG in SYRINGE 4 ML IV PRN (09:27)
--- NOTE | 2020-06-19 10:23 | Pharmacy Report ---
Pharmacy Glycemic Short Note 2 - Date of Service June 19, 2020 - Glycemic Short BSG Results (Last 24 hours): 06/18/20 06/18/20 06/19/20 14:00 17:55 00:22 POC Glucose 73 197 H 263 H OUTPATIENT ANTIDIABETIC REGIMEN: * Lantus 12 units SC qAM * Novolog per sliding scale (1 unit for every 12 carbs, MDD 40 units) * HbA1c: 6.7% (03/05/20) * However, this result is likely somewhat unreliable in ESRD patients d/t interactions between the A1c analyzing technique and high levels of urea in ESRD, reduced RBC life span, iron deficiency anemia, and EPO administration. HbA1c > 7.5% in ESRD patient may overestimate the extent of hyperglycemia in ESRD patients. ASSESSMENT: 06/18 * Patient received total of 10 units of regular scheduled insulin Q6 hr interval + additional 13 units of correctional insulin * Regular insulin scaled back yesterday as day prior BSGs dropping at dinner and overnight and patient becoming hypoglycemic * BSGs over last 24 hrs better controlled - plan to target total ~11-12 units of insulin of regular scheduled insulin. Appears setting fixed dose Q6 hr (vs using scale) has worked out better * Plan to use 3 units Q6 hr of regular insulin for basal needs. Continue with CF if needed during checks PLAN FOR INPATIENT GLYCEMIC CONTROL: * Hold outpatient oral diabetes medications * Basal insulin * Regular insulin 3 units Q 6 hr * Bolus insulin * Regular insulin per scale ACHS or Q6hrs while NPO * Goal Range: Low 110 mg/dL - High 150 mg/dL * Correction Factor: 25 mg/dL/unit
[2020-06-19] MEDS ORDERED: INSULIN HUMAN REGULAR SC SCH (12:00)
[2020-06-19] MEDS ORDERED: INSULIN HUMAN REGULAR PER UNIT 5 UNITS in SYRINGE 4.95 ML IV ONE ×2 (14:00→14:15)
--- NOTE | 2020-06-19 15:16 | Discharge Summary ---
Date of Service June 19, 2020 Admission HPI Per Admitting Provider Jorge Alberto Vega is a 49-year-old male well-known to this service with end- stage renal disease on dialysis and severe gastroparesis secondary to type 1 diabetes. His current presentation with intractable nausea and vomiting is very similar to previous admissions although the patient notes a room spinning sensation that he does not usually have. He was able to undertake dialysis yesterday but is unsure how much fluid was taken off. He felt well after this. However, this morning he woke up with intractable nausea and vomiting with associated generalized abdominal pain. Abdominal pain is constant/cramping, no radiation. He denies any headache, chest pain, produces minimal amount of urine but no change in this, no cough, loss of taste or smell, ear pain, loss of hearing. With his vertigo he feels better when he closes his eyes. Principal Diagnosis intractable Nausea and vomiting secondary to diabetic gastroparesis Discharge Exam The patient appeared well but is chronically ill Vital signs as documented. Lungs are clear to auscultation and appear unlabored Cardiac exam, Rhythm is regular.. No murmurs, rubs or gallops. Abdominal exam reveals normal bowel sounds, soft non tender, no masses Extremities are nonedematous and both pedal pulses are normal. Neurologic exam is alert and oriented, does have peripheral neuropathy along with his gastroparesis Skin is without bruises or rashes Psychologically is without concerns for anxiety or depression. Discharge Data Allergies Allergy/AdvReac Type Severity Reaction Status Date / Time shellfish derived Allergy Severe anaphylaxis Verified 06/16/20 14:23 codeine Allergy Intermediate Hives Verified 06/16/20 14:23 promethazine Allergy Intermediate itchy/hives Verified 06/16/20 14:23 Consultations 06/16/20 14:17 ED Decision to Admit Stat 06/16/20 19:14 Consult Nephrology Routine Ordered Studies 06/16/20 12:47 CT abd pelvis wo con Stat 06/16/20 15:59 CT head/brain wo con Stat Hospital Course (1) Nausea and vomiting: Secondary to severe gastroparesis,plus vertigo, continues to be resolved after stopping scheduled metoclopramide 06/18/20 Continue compazine NE prn and will be given home Rx (2) Vertigo: CT head negative for central cause. No hearing problems to suggest meniere's TM normal b/l, therefore no otitis media. (3) Diabetic gastroparesis associated with type 1 diabetes mellitus: HbA1C 6.7 in February pt had some issues with glycemic control but likely due to eating and insulin schedule being vastly different to his home schedule, pt is eager to go home and resume his outpt schedule that appears to be working as per his A1c (4) End stage renal disease on dialysis due to type 1 diabetes mellitus: continues with dialysis management. (5) Anxiety: Continue his usual sertraline, bupropion (6) Hypertension: Hypertensive urgency in the ER. Continue amlodipine 10mg PO daily. (7) Severe protein-calorie malnutrition: Swimming Professor consult once able to eat and drink. Total Time Total Time Spent Total Time Spent (In Minutes): It required greater than 30 minutes to prepare this patient for discharge Discharge Plan Discharge Items Patient Disposition: Home - Self-Care Reason For Visit: SEVERE GASTROPARESIS,INTRACTABLE NAUSEA AND VOMITI Discharge Diagnosis: intractable Nausea and vomiting due to gastroparesis-> resolved Activity: Resume your previous activity Non-emergency contact: Primary Care Provider Call non-emergency contact if: your symptoms worsen Follow-up/Referrals: Abbi Ames MD [Primary Care Provider] - 06/25/20 2:15 pm (You have an appt with Sharlene MontesMonica on 06/25 @ 215pm. Please arrive 15 minutes prior to your appt. It is important that you keep this appt, if for some reason this does not fit your schedule please call [phone] to reschedule. ) Diet: Carb Consistent or DM2 Addtl Attending Provider Instructions: small frequent low fat meals, continue your home diabetic regimen and follow with your outpt dialysis sessions Pending Studies at Discharge: No Stand-Alone Forms: My [employer], Smoking Cessation Medications and DC Order Prescriptions: New prochlorperazine [Compazine] 25 mg suppository 25 mg NE BID PRN (Reason: nausea and vomiting) Qty: 12 RF: 0 Continued bupropion HCl 100 mg tablet sustained-release 12 hr 100 mg PO QAM RF: 0 (DME) Contour Next Test Strips Strip See Dose Instructions .ROUTE .MEDSUPPLY Qty: 300 RF: 3 (DME) pen needle, diabetic [BD Ultra-Fine Annalise Pen Needle] 32 gauge x 5/32" needle See Rx Instructions .ROUTE .MEDSUPPLY Qty: 500 RF: 3 prochlorperazine maleate 5 mg tablet 5 mg PO Q8H PRN (Reason: nausea and vomiting) Qty: 10 RF: 1 Basaglar KwikPen U-100 Insulin 100 unit/mL (3 mL) insulin pen 12 unit SUBCUT QAM Qty: 15 RF: 3 metoclopramide HCl 5 mg tablet 5 mg PO BID RF: 0 lorazepam 0.5 mg tablet 0.5 mg PO Q12 PRN (Reason: Anxiety) RF: 0 carvedilol 25 mg tablet 37.5 mg PO BID Qty: 0 RF: 0 amlodipine 10 mg tablet 10 mg PO QAM Qty: 1 RF: 1 acetaminophen [Acetaminophen Extra Strength] 500 mg Tablet 500 mg PO Q6H MDD 3000 MG/DAY PRN (Reason: Fever Or Pain) RF: 0 insulin aspart U-100 [Novolog Flexpen U-100 Insulin] 100 unit/mL (3 mL) insulin pen 1 unit SUBCUT UD PRN (Reason: sliding scale) RF: 0 Velphoro 500 mg tablet,chewable 500 mg PO AC RF: 0 pantoprazole 40 mg Tablet,Delayed Release (Dr/Ec) 40 mg PO BID Qty: 60 RF: 0 sertraline 100 mg tablet 100 mg PO QAM RF: 0 Discharge Orders: Discharge Order (Routine); Ordered 06/19/20 Ordered By: Dionicio Haro Admission Data Admit Date/Time: 06/18/20 13:51 Attending Provider: Dionicio Haro Admit Provider: Guevara Loomis Primary Care Provider: Abbi Ames V. Other Providers: Guevara Loomis ; Suman Montilla Other Interventions: Discharge Summary Assessment (RN) Last Done: 06/19/20 11:07 Coding Level of Care Code D/C Day Management >30 mins Diagnoses Nausea and vomiting R11.2 Vertigo R42 Diabetic gastroparesis associated with type 1 diabetes mellitus E10.43; K31.84 End stage renal disease on dialysis due to type 1 diabetes mellitus E10.22; N18.6; Z99.2 Anxiety F41.9 Hypertension I10 Hypertension type: unspecified Severe protein-calorie malnutrition E43
[2020-06-19] MEDS ORDERED: INSULIN HUMAN REGULAR SC ONE (16:30)
--- NOTE | 2020-06-19 17:11 | Nephrology Progress Note ---
Date of Service June 19, 2020 Assessment & Plan (1) End stage renal disease on dialysis due to type 1 diabetes mellitus: Patient with ESRD on dialysis Thursday. His last out patient dialysis was on Thursday which was uneventful. His electrolytes are stable and no signs of severe volume overload> low Na suggests mild vol OL but bp does not tolerate more removal. for now volume status acceptable. 06/16/20 labs reviewed -Next dialysis will be 06/20 or as clinically indicated (2) Diabetic gastroparesis associated with type 1 diabetes mellitus: Patient with the diabetic gastroparesis and recurrent hospitalizations for vomiting. Continue symptomatic management for vomiting and nausea. Will limit ultrafiltration during dialysis. Admission and Anticipated Discharge Date Admission Date: June 18, 2020 Subjective seen on rounds at 1140 am; n/dry heaves have stabilized; pt hoping for d/c home today; tolerated HD well; 1L UF; sitting in dark d/t recent cataract procedure prefers darkness/+photophobia Review of Systems Review of Systems: All systems reviewed & are unremarkable except as noted in Subjective Physical Exam Constitutional: well developed and + thin; no acute distress Eyes: EOM intact bilaterally ENMT: Ears: no external ear abnormality Nose: no external nose abnormality Mouth: + dry oral mucous membranes Neck: no nuchal rigidity Respiratory: normal respiratory effort Auscultation: lungs clear to auscultation bilaterally and + diminished lung sounds Cardiovascular: RRR, no murmur, no edema Gastrointestinal (Abdomen): Inspection/Auscultation: normal bowel sounds Percussion/Palpation: abdomen soft; abdomen nontender Musculoskeletal: Extremities: strength 5/5 throughout Skin: no rashes, warm and dry Neurologic: spicer, fluent speech, no tremor Psychiatric: A+Ox3, euthymic affect Insight: good insight Judgement: good judgement Results & Data ([facility]) Vital Signs (Past 12 Hours) Vital Signs Temp Pulse Pulse Resp BP Pulse Ox 06/19/20 16:08 37.1 C 79 82 21 129/65 98 06/19/20 14:56 37.1 C 82 21 129/65 98 06/19/20 11:07 36.7 C 79 85 18 148/68 H 96 06/19/20 07:49 36.7 C 85 18 148/68 H 96 Laboratory Results 06/16/20 13:20 06/16/20 13:20
== END 2020-06-19 17:40 | disposition home or self-care (01) | DRG 73 ==
LOC: 2W 12:00 → ED 12:00 → SUATTDRO 15:39 → 2W 16:30

== ENCOUNTER 2020-07-09 18:32 | Observation (INO) ==
[2020-07-09] MEDS ORDERED: diphenhydrAMINE 50 MG/ML VIAL IV STA (18:46)
[2020-07-09] MEDS ORDERED: METOCLOPRAMIDE HCL INJ 5 MG/ML 2 ML VIAL IV STA (18:46)
[2020-07-09] MEDS ORDERED: ACETAMINOPHEN 1000 MG/100 ML IV IV STA (18:46)
[2020-07-09] MEDS ORDERED: KETOROLAC TROMETHAMINE 15 MG/ML VIAL IV STA (18:46)
[2020-07-09] MEDS ORDERED: SODIUM CHLORIDE 0.9% 1000ML 1,000 ML IV ONE (18:46)
--- NOTE | 2020-07-09 18:54 | Emergency Department Note ---
Impression & Plan Hypertension, Dialysis patient, Headache, Vomiting ED Provider Note NAME: JERARDO PEREZ AGE: 49 SEX: M : 1970 ARRIVES VIA: Walk-In INFORMANT: [Patient] ED PROVIDER(S): [Dev Morgan MD] CHIEF COMPLAINT: Vomiting HISTORY OF PRESENT ILLNESS: The patient is a 49-year-old male who presents with vomiting. He states that all day today, for 12 hours, he has had nausea. He states that several hours ago, he began vomiting. He tried Compazine but it did not help. He states that in the last 2 hours, he has developed a headache behind his eyes that is a 6 on a scale of 1 out of 10. The patient not had fever, chills, cough or congestion. No known Covid exp osures. He has no abdominal pain or urinary complaints. No diarrhea. The patient is a history of nausea and vomiting secondary to gastroparesis. He states this feels somewhat different though as, he typically has abdominal pain with a gastroparesis flare--he has no abdominal pain today. He has not had any bad food to eat, he has not had any sick contacts. He did have dialysis today and things went well. REVIEW OF SYSTEMS: See HPI for pertinent positives and negatives. A total of ten systems were reviewed and were otherwise negative. PMHx/PSHx: See Below SOCIAL HISTORY: See Below. PHYSICAL EXAM: GENERAL: Patient is in mild distress secondary to nausea and vomiting HEENT: No acute trauma, normocephalic atraumatic, mucous membranes moist, no nasal congestion, no scleral icterus. NECK: No stridor, no adenopathy, no meningismus, trachea is midline. LUNGS: Clear to auscultation bilaterally, no wheeze, no rhonchi, breath sounds equal. HEART: 2/6 systolic murmur, mildly tachycardic, regular rhythm. ABDOMEN: Soft, nontender, bowel sounds positive, no hernias, no peritonitis. EXTREMITIES: No cyanosis or edema, full range of motion of all the joints without pain or difficulty, no signs for acute trauma. NEUROLOGIC: Oriented x 3, no acute motor or sensory deficits, no focal weakness. SKIN: No rash, no jaundice, no diaphoresis. DIFFERENTIAL DIAGNOSIS: Infection, dehydration, metabolic abnormality, hypo/hyperglycemia, electrolyte disturbance, anemia, cardiac sources, intracerebral event, bowel obstruction, ileus, foodborne illness, viral illness, gastroparesis flare, toxicologic issues, as well as other pathologies. EMERGENCY DEPARTMENT COURSE/PROCEDURES: ECG: Indication was vomiting and tachycardia. The ECG shows a normal sinus rhythm with a rate of 95. There is no ST elevation, no PVCs. The QTc is 477. Continuous Cardiac Monitoring: An order was placed for continuous cardiac monitoring. The monitor shows a rate of 96 with normal sinus rhythm. MEDICAL DECISION MAKING: There is no leukocytosis or worrisome anemia. Creatinine is quite high con sistent with his dialysis need. No electrolyte abnormality requiring correction. No liver enzyme elevation. ECG shows a sinus rhythm, no acute ischemia. Cardiac enzyme testing x1 is not consistent with acute cardiac injury. Chest film does not show CHF, pneumonia or pneumothorax. On exam, the patient was dry heaving, he was not febrile. He was not toxic. Patient received IV Tylenol and IV Toradol for his headache. He received IV Reglan, IV Benadryl and IV saline. The patient was still nauseated and dry heaving. He was given a dose of IV Zofran. Patient's blood pressure has been persistently high. He received 10 mg of IV labetalol, a second dose of IV labetalol was given. His blood pressure is starting to come down since this medication has been administered. The patient is unable to tolerate oral intake despite numerous medications for nausea and vomiting. He has required 2 doses of IV medication to control his blood pressure. I do not think he is stable for discharge home. In the past, he has had similar presentations to today's presentation requiring hospitalizati on. I spoke to the patient, I talked with case management. The on-call hospitalist has been consulted. Past Med/Surg History Medical History Anemia of chronic disease Anxiety AV fistula left arm CAD (coronary artery disease) mild, non-obstructive CAD per 10/2018 cardiac cath> [facility] Depression Depression Diabetic neuropathy Diabetic retinopathy Dialysis patient DKA (diabetic ketoacidoses) DKA (diabetic ketoacidoses) Esophagitis ESRD (end stage renal disease) M,W,F (Follows with Dr. Taylor Higgins; [facility]/[place]) ESRD on dialysis Gastroparesis GERD (gastroesophageal reflux disease) Hematemesis Hypertension Hypertensive urgency Kidney stones Lumbar compression fracture Lumbar radiculopathy Peripheral neuropathy Retinopathy due to secondary diabetes Severe protein-calorie malnutrition Surgical History H/O shoulder surgery History of appendectomy History of cardiac cath History of cataract surgery History of esophagogastroduodenoscopy (EGD) History of hip surgery History of lithotripsy History of open reduction and internal fixation (ORIF) procedure Nausea and vomiting after administration of anesthetic agent Permanent central venous catheter in place Family History Grandfather Myocardial infarction Grandfather (Maternal) Family history of diabetes mellitus Uncle Myocardial infarction Denies family history of Colon cancer Ovarian cancer Prostate cancer Breast cancer Social History Smoking Status: Never smoker Second Hand Exposure: No; Hx Alcohol Use: No Hx Substance Use: No Preferred Language: Japanese Communication Ability: Effective Visual Impairment: No Limitations Hearing Ability: Normal Monitoring Manager Required: No Beliefs That Will Affect Care: None marital status: Single Current Living Situation: Family current occupational status: disabled How many Children do You have: 2 Feels Safe at Home: Yes Childhood Exposure to Second-Hand Smoke: Yes Dental Care, Regularly: No Physical Activity Frequency: 1-2 Times per Week Seatbelt Use: always Sunscreen Use: No Assistive Devices: Glasses Allergies Allergies Allergy/AdvReac Type Severity Reaction Status Date / Time shellfish derived Allergy Severe anaphylaxis Verified 07/09/20 19:42 codeine Allergy Intermediate Hives Verified 07/09/20 19:42 promethazine Allergy Intermediate itchy/hives Verified 07/09/20 19:42 Home Meds Home Medications Medication Instructions Recorded Confirmed bupropion HCl 100 mg tablet,12 hr 100 mg PO QAM ea 04/14/19 07/09/20 sustained-release lorazepam 0.5 mg tablet 0.5 mg PO Q12 PRN tab 07/25/19 07/09/20 insulin aspart U-100 [Novolog 1 unit SUBCUT UD PRN 02/01/20 07/09/20 Flexpen U-100 Insulin] metoclopramide HCl 5 mg tablet 0 mg PO BID tab 06/13/20 07/09/20 sucroferric oxyhydroxide 500 mg 0 mg PO AC 06/13/20 07/09/20 chewable tablet losartan 100 mg PO DAILY 07/09/20 07/09/20 pantoprazole 0 mg PO BID 07/09/20 07/09/20 Previous Rx's Medication Instructions Recorded Contour Next Test Strips #300 ea NS 10/26/19 pen needle, diabetic 32 gauge x #500 ea 01/25/20" carvedilol 25 mg tablet 37.5 mg PO BID #0 tab 05/29/20 Basaglar KwikPen U-100 Insulin 100 12 unit SUBCUT QAM #15 ml NS 06/19/20 unit/mL (3 mL) subcutaneous prochlorperazine [Compazine] 25 mg [place] BID PRN #12 ea 06/19/20 sertraline 100 mg tablet 100 mg PO QAM #90 tab 06/21/20 Results & Data (ED) Vital Signs Vital Signs - 24 hr 07/09/20 18:33 07/09/20 19:30 07/09/20 19:54 Temperature 36.4 C L Temperature Source Oral Pulse Rate 96 H 90 89 Respiratory Rate 18 16 20 Blood Pressure 227/98 H 238/110 H 214/96 H Blood Pressure Mean 141 152 135 Pulse Oximetry 99 97 99 Sepsis Recent Fever Within 48 Hours No Sepsis New/Unexplained Change in Mental Status No Sepsis Action Taken by Nursing No Action Required 07/09/20 20:00 07/09/20 20:16 07/09/20 20:30 Temperature Temperature Source Pulse Rate 88 91 H 86 Respiratory Rate 20 20 20 Blood Pressure 227/99 H 220/98 H 203/97 H Blood Pressure Mean 141 138 132 Pulse Oximetry 98 99 99 Sepsis Recent Fever Within 48 Hours Sepsis New/Unexplained Change in Mental Status Sepsis Action Taken by Nursing 07/09/20 20:43 Temperature Temperature Source Pulse Rate 79 Respiratory Rate 20 Blood Pressure 209/88 H Blood Pressure Mean 128 Pulse Oximetry 95 Sepsis Recent Fever Within 48 Hours Sepsis New/Unexplained Change in Mental Status Sepsis Action Taken by Long-Term Medications Current Medication List: was personally reviewed by me Laboratory Data Attestation: I reviewed the patient's lab results. Result diagrams: 07/09/20 19:10 07/09/20 19:10 Lab Results 07/09/20 07/09/20 Range/Units 19:10 19:10 WBC 7.47 (4.8-10.8) K/uL RBC 3.93 L (4.7-6.1) M/uL Hgb 13.1 L (14.0-18.0) g/dL Hct 37.2 L (42-52) % MCV 94.7 (80-100) fL MCH 33.3 (25-34) pg MCHC 35.2 (32-36) g/dL RDW Std Deviation 41.5 (36.4-46.3) fL RDW Coeff of Kami 12.0 (11.5-14.5) % Plt Count 298 (130-400) K/uL MPV 9.0 (7.4-10.4) fL Immature Gran % (Auto) 0.3 % Neut % (Auto) 74.0 % Lymph % (Auto) 15.9 % [place] % (Auto) 8.4 % Eos % (Auto) 0.9 % Baso % (Auto) 0.5 % Neut # (Auto) 5.52 (1.4-6.5) K/uL Lymph # (Auto) 1.19 L (1.2-3.4) K/uL [place] # (Auto) 0.63 H (0.11-0.59) K/uL Eos # (Auto) 0.07 (0-0.5) K/uL Baso # (Auto) 0.04 (0-0.2) K/uL Immature Gran # (Auto) 0.02 (0.00-0.02) K/uL Sodium 135 L (136-145) mmol/L Potassium 3.5 (3.5-5.1) mmol/L Chloride 99 (98-107) mmol/L Carbon Dioxide 27 (21-32) mmol/L Anion Gap 8.0 (3-11) BUN 31 H (7-18) mg/dl Creatinine 5.19 H* (0.6-1.4) mg/dl Est Cr Clr Drug Dosing 15.0 ml/min Est GFR ( Amer) 13.9 Est GFR (Non-Af Amer) 12.0 BUN/Creatinine Ratio 6.0 L (10-20) Glucose 84 (70-99) mg/dl Calcium 9.3 (8.5-10.1) mg/dl Magnesium 2.3 (1.8-2.4) mg/dl Total Bilirubin 0.5 (0.2-1) mg/dl AST 11 L (15-37) U/L ALT 25 (12-78) U/L Alkaline Phosphatase 104 (45-117) U/L Troponin I 0.015 (0-0.045) ng/ml Total Protein 7.6 (6.4-8.2) gm/dl Albumin 3.9 (3.4-5.0) gm/dl Globulin 3.7 (2.5-4.0) gm/dl Albumin/Globulin Ratio 1.0 (0.9-2) Administered Medications Discontinued Medications Acetaminophen (Acetaminophen 1000 Mg/100 Ml Iv) 1,000 mg IV NOW STA Stop: 07/09/20 18:47 Last Admin: 07/09/20 19:18 Dose: 1,000 mg Documented by: [id number] Diphenhydramine HCl (Diphenhydramine 50 Mg/Ml Vial) 25 mg IV NOW STA Stop: 07/09/20 18:47 Last Admin: 07/09/20 19:13 Dose: 25 mg Documented by: [id number] Sodium Chloride (Nss 1000ml) 1,000 mls @ 999 mls/hr IV .Q1H1M ONE Stop: 07/09/20 19:46 Last Infusion: 07/09/20 20:38 Dose: 0 mls/hr Documented by: [id number] Admin: 07/09/20 19:12 Dose: 999 mls/hr Documented by: [id number] Ketorolac Tromethamine (Ketorolac Tromethamine 15 Mg/Ml Vial) 15 mg IV NOW STA Stop: 07/09/20 18:47 Last Admin: 07/09/20 19:12 Dose: 15 mg Documented by: [id number] Labetalol HCl (Labetalol Hcl Iv 5 Mg/Ml 20ml) 10 mg IV NOW STA Stop: 07/09/20 20:21 Last Admin: 07/09/20 20:28 Dose: 10 mg Documented by: [id number] Cosigned by: [id number] Labetalol HCl (Labetalol Hcl Iv 5 Mg/Ml 20ml) 10 mg IV NOW STA Stop: 07/09/20 20:46 Last Admin: 07/09/20 20:55 Dose: 10 mg Documented by: [id number] Cosigned by: [id number] Metoclopramide HCl (Metoclopramide Hcl Inj 5 Mg/Ml 2 Ml Vial) 10 mg IV NOW STA Stop: 07/09/20 18:47 Last Admin: 07/09/20 19:17 Dose: 10 mg Documented by: [id number] Ondansetron HCl (Ondansetron Inj 2 Mg/Ml 2 Ml Vial) 4 mg IV NOW STA Stop: 07/09/20 20:46 Last Admin: 07/09/20 20:56 Dose: 4 mg Documented by: [id number] Imaging Data Radiologist's Impression: XR chest 1V portable HISTORY: 49 years-old Male abd pain . Acute chest and abdominal pain COMPARISON: Chest radiograph 06/16/2020 TECHNIQUE: Portable AP view of the chest FINDINGS: Cardiomediastinal and hilar silhouettes are within normal limits. There is no pneumothorax, pleural effusion, airspace consolidation or overt pulmonary edema. Bones of the chest appear grossly intact. IMPRESSION: No acute process. Discharge Plan Visit Data Chief Complaint: Vomiting Stated Complaint: VOMITING, HEADACHE ED Provider: Dev Morgan Discharge Problem: Hypertension, Dialysis patient, Headache, Vomiting Patient Disposition: Admitted As Inpatient Condition: Fair Forms Stand Alone Forms: [facility] Prescriptions Prescriptions: No Action bupropion HCl 100 mg tablet sustained-release 12 hr 100 mg PO QAM RF: 0 (DME) Contour Next Test Strips Strip See Dose Instructions .ROUTE .MEDSUPPLY Qty: 300 RF: 3 (DME) pen needle, diabetic [BD Ultra-Fine Annalise Pen Needle] 32 gauge x 5/32" needle See Rx Instructions .ROUTE .MEDSUPPLY Qty: 500 RF: 3 Basaglar KwikPen U-100 Insulin 100 unit/mL (3 mL) insulin pen 12 unit SUBCUT QAM Qty: 15 RF: 3 sertraline 100 mg tablet 100 mg PO QAM Qty: 90 RF: 0 metoclopramide HCl 5 mg tablet 0 mg PO BID RF: 0 lorazepam 0.5 mg tablet 0.5 mg PO Q12 PRN (Reason: Anxiety) RF: 0 carvedilol 25 mg tablet 37.5 mg PO BID Qty: 0 RF: 0 insulin aspart U-100 [Novolog Flexpen U-100 Insulin] 100 unit/mL (3 mL) insulin pen 1 unit SUBCUT UD PRN (Reason: sliding scale) RF: 0 Velphoro 500 mg tablet,chewable 0 mg PO AC RF: 0 prochlorperazine [Compazine] 25 mg suppository 25 mg [place] BID PRN (Reason: nausea and vomiting) Qty: 12 RF: 0 losartan 100 mg tablet 100 mg PO DAILY RF: 0 pantoprazole 40 mg tablet,delayed release (DR/EC) 0 mg PO BID RF: 0 Referrals Referrals: Abbi Ames MD [Primary Care Provider] - Discharge Problem: Hypertension Qualifiers: Hypertension type: unspecified Qualified Code(s): I10 - Essential (primary) hypertension Headache Qualifiers: Headache type: unspecified Headache chronicity pattern: acute headache Intractability: not intractable Qualified Code(s): R51.9 - Headache, unspecified Vomiting Qualifiers: Vomiting type: unspecified Vomiting Intractability: intractable Nausea presence: with nausea Qualified Code(s): R11.2 - Nausea with vomiting, unspecified
[2020-07-09 19:17] LABS: Basophils # (auto) 0.04 K/uL (0-0.2); Basophils % (auto) 0.5 %; Eosinophils # (auto) 0.07 K/uL (0-0.5); Eosinophils % (auto) 0.9 %; Hematocrit (blood only) 37.2 % (42-52); Hemoglobin 13.1 g/dL (14.0-18.0); Immature Granulocytes # (auto) 0.02 K/uL (0.00-0.02); Immature Granulocytes % (auto) 0.3 %; Lymphocytes # (auto) 1.19 K/uL (1.2-3.4); Lymphocytes % (auto) 15.9 %; Mean Corpuscular Hemoglobin 33.3 pg (25-34); Mean Corpuscular Hgb Conc 35.2 g/dL (32-36); Mean Corpuscular Volume 94.7 fL (80-100); Monocytes # (auto) 0.63 K/uL (0.11-0.59); Monocytes % (auto) 8.4 %; Neutrophils # (auto) 5.52 K/uL (1.4-6.5); Platelet Count 298 K/uL (130-400); RDW Standard Deviation 41.5 fL (36.4-46.3); Red Blood Count 3.93 M/uL (4.7-6.1); White Blood Count 7.47 K/uL (4.8-10.8)
[2020-07-09] MEDS ORDERED: LABETALOL HCL IV 5 MG/ML 20ML IV STA ×2 (20:20→20:45)
[2020-07-09 20:41] LABS: Albumin Level 3.9 gm/dl (3.4-5.0); Bilirubin,Total 0.5 mg/dl (0.2-1); Calcium 9.3 mg/dl (8.5-10.1); Est GFR (African American) 13.9; Globulin 3.7 gm/dl (2.5-4.0); Magnesium 2.3 mg/dl (1.8-2.4); Potassium 3.5 mmol/L (3.5-5.1); Total Protein 7.6 gm/dl (6.4-8.2); Troponin I 0.015 ng/ml (0-0.045)
[2020-07-09] MEDS ORDERED: ONDANSETRON INJ 2 MG/ML 2 ML VIAL IV STA (20:45)
--- NOTE | 2020-07-09 20:46 | XRay Report ---
XR chest 1V portable HISTORY: 49 years-old Male abd pain . Acute chest and abdominal pain COMPARISON: Chest radiograph 06/16/2020 TECHNIQUE: Portable AP view of the chest FINDINGS: Cardiomediastinal and hilar silhouettes are within normal limits. There is no pneumothorax, pleural e ffusion, airspace consolidation or overt pulmonary edema. Bones of the chest appear grossly intact. IMPRESSION: No acute process. ACT 112: Negative or not required by law. The above report was generated using voice recognition software. It may contain grammatical, syntax o r spelling errors. Electronically signed by: Ti Martinez M.D. 07/09/2020 8:44 PM
[2020-07-09] MEDS ORDERED: LORazepam 0.5 MG/1 ML VIAL IV STA (21:11)
[2020-07-09] MEDS ORDERED: PROCHLORPERAZINE 5 MG in SYRINGE 4 ML IV ONE (21:12)
[2020-07-09] MEDS ORDERED: PROCHLORPERAZINE 5 MG/ML 2 ML VIAL ONE (21:17)
[2020-07-09] MEDS ORDERED: hydrALAZINE HCL 20 MG/ML VIAL IV PRN (21:31)
[2020-07-09] MEDS ORDERED: METOPROLOL TARTRATE 1 MG/ML VIAL IV PRN (21:31)
--- NOTE | 2020-07-09 21:32 | History & Physical Report ---
Date of Service July 09, 2020 Assessment & Plan (1) Vomitin-year-old male past medical history significant for ESRD on HD, DM 1, HTN, anxiety, depression, CAD admitted for intractable nausea and vomiting, hypertensive emergency. Intractable nausea and vomiting: -On arrival patient appears dehydrated, which correlates with his history of vomiting x1 day. -Patient has had admissions in the past for similar symptoms suspected to be secondary to gastroparesis requiring multi therapy antiemetics. -Compazine, Zofran, Reglan, Benadryl as needed nausea/vomiting. -N.p.o. for now given multiple vomiting episodes. NSS at 100 cc/hr x 1 bag. -Advance diet as tolerated. Hypertensive emergency: -Patient does not recall if he took his BP medications this morning. -On arrival with BP systolic greater than 200 and symptoms of headache. -CT head performed without any acute findings. Headache improved with IV Lopressor. -Hydralazine 10 mg IV every 6 hours as needed SBP greater than 180. Continue home medications. Anxiety/depression: -Patient with significant symptoms of anxiety and depression at baseline, with worsening anxiety in ER somewhat contributory toward nausea. -On Ativan 0.5 mg twice daily, sertraline 100 daily, bupropion 100 daily. We will continue these. ESRD on HD: -Patient has hemodialysis on Thursday. Did have dialysis performed today. -Creatinine this admission 5.19, decreased as compared to last check. -Potassium 3.5. -Nephrology consult placed. DM1: -Patient does not recall if he took his insulin this morning. -SSI ordered, titrate and add basal as needed. -BSG 84 in ER. CODE STATUS: Full code FEN GI: N.p.o. at this time given nausea and vomiting, NSS at 100 cc/hr x 1 bag DVT prophylaxis: Heparin 5000 units subcu every 12 Dispo: MedSurg for antiemetics, IV fluids (2) Gastroparesis: (3) Depression: (4) 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, with long-term current use of insulin: (5) Anxiety: (6) Hypertensive emergency: History of Present Illness Chief Complaint: intractable nausea and vomiting Primary Care Provider: Abbi Ames MD 49-year-old male past medical history significant for ESRD on HD, DM 1, HTN, anxiety, depression, CAD presents to ED for intractable nausea, headache, vomiting x1 day. Spoke to patient's mother over the phone who also provided some history. This patient has been admitted in the past for similar complaints, has a described history of gastroparesis suspected to be secondary to DM 1 and does have Zofran and Compazine at home, which the patient took today without improvement. Patient did have dialysis today. Reports that he took "some of his medications today", but was unable to list which ones. At time of my interview patient is without chest pain, shortness of breath, abdominal pain, dizziness. Reports that he did have a headache on arrival to ER which has since improved. Still feels actively nauseous with dry heaves, however subjectively improved as compared to arrival. Allergies Allergy/AdvReac Type Severity Reaction Status Date / Time shellfish derived Allergy Severe anaphylaxis Verified 07/09/20 19:42 codeine Allergy Intermediate Hives Verified 07/09/20 19:42 promethazine Allergy Intermediate itchy/hives Verified 07/09/20 19:42 Home Medications Medication Instructions Recorded Confirmed Type bupropion HCl 100 mg tablet,12 hr 100 mg PO QAM ea 04/14/19 07/11/20 History sustained-release lorazepam 0.5 mg tablet 0.5 mg PO Q12 PRN tab 07/25/19 07/11/20 History Contour Next Test Strips #300 ea NS 10/26/19 07/11/20 Rx pen needle, diabetic 32 gauge x #500 ea 01/25/20 07/11/20 Rx 5/32" insulin aspart U-100 [Novolog 1 unit SUBCUT UD PRN 02/01/20 07/11/20 History Flexpen U-100 Insulin] carvedilol 25 mg tablet 37.5 mg PO BID #0 tab 05/29/20 07/11/20 Rx metoclopramide HCl 5 mg tablet 0 mg PO BID tab 06/13/20 07/11/20 History sucroferric oxyhydroxide 500 mg 0 mg PO AC 06/13/20 07/11/20 History chewable tablet Basaglar KwikPen U-100 Insulin 100 12 unit SUBCUT QAM #15 ml NS 06/19/20 07/11/20 Rx unit/mL (3 mL) subcutaneous prochlorperazine [Compazine] 25 mg [place] BID PRN #12 ea 06/19/20 07/11/20 Rx sertraline 100 mg tablet 100 mg PO QAM #90 tab 06/21/20 07/11/20 Rx losartan 100 mg PO DAILY 07/09/20 07/11/20 History pantoprazole 0 mg PO BID 07/09/20 07/11/20 History Past Med/Surg History Medical History Anemia of chronic disease Anxiety AV fistula left arm CAD (coronary artery disease) mild, non-obstructive CAD per 10/2018 cardiac cath> [facility] Depression Depression Diabetic neuropathy Diabetic retinopathy Dialysis patient DKA (diabetic ketoacidoses) DKA (diabetic ketoacidoses) Esophagitis ESRD (end stage renal disease) M,W,F (Follows with Dr. Taylor Higgins; [facility] ESRD on dialysis Gastroparesis GERD (gastroesophageal reflux disease) Headache Hematemesis Hypertension Hypertensive urgency Kidney stones Lumbar compression fracture Lumbar radiculopathy Peripheral neuropathy Retinopathy due to secondary diabetes Severe protein-calorie malnutrition Vomiting Surgical History H/O shoulder surgery RIGHT History of appendectomy History of cardiac cath 10/2018= no stents, no obstructive disease (at [facility]) History of cataract surgery History of esophagogastroduodenoscopy (EGD) History of hip surgery left HIP ARTHROSCOPY History of lithotripsy History of open reduction and internal fixation (ORIF) procedure right hip Nausea and vomiting after administration of anesthetic agent Permanent central venous catheter in place Permacath and since has been removed Family History Grandfather Myocardial infarction Grandfather (Maternal) Family history of diabetes mellitus Uncle Myocardial infarction Denies family history of Colon cancer Ovarian cancer Prostate cancer Breast cancer Social History Smoking Status: Never smoker Second Hand Exposure: No; Hx Alcohol Use: No Hx Substance Use: No Preferred Language: Kyrgyz Communication Ability: Effective Visual Impairment: No Limitations Hearing Ability: Normal Rigger Helper Required: No Beliefs That Will Affect Care: None marital status: Current Living Situation: Family current occupational status: disabled How many Children do You have: 2 Feels Safe at Home: Yes Childhood Exposure to Second-Hand Smoke: Yes Dental Care, Regularly: No Physical Activity Frequency: 1-2 Times per Week Seatbelt Use: always Sunscreen Use: No Assistive Devices: Glasses Review of Systems Review of Systems: All systems reviewed & are unremarkable except as noted in HPI & below Constitutional: no fever, no chills and no malaise Respiratory: no cough and no dyspnea Cardiovascular: no chest pain, no palpitations and no edema Gastrointestinal: + nausea and + vomiting; no abdominal pain, no constipation and no diarrhea/loose stools Physical Exam Constitutional: well developed, + ill appearing and + thin Eyes: PERRL, conjunctivae normal, anicteric sclerae ENMT: Nose: + dry nasal mucous membranes Neck: normal visual inspection Respiratory: normal respiratory effort, lungs clear to auscultation Cardiovascular: RRR, no murmur, no edema Gastrointestinal (Abdomen): normal bowel sounds, soft, nontender, no hepatosplenomegaly Musculoskeletal: No cyanosis or clubbing Skin: no rashes, warm and dry Neurologic: AAOx3, normal speech. Bilateral UE, LE, and face without sensory or motor deficits. No tremor. Psychiatric: Orientation: alert and oriented x 3 Affect: + anxious affect Results & Data Results & Data ([facility]) Vital Signs (Past 12 Hours) Vital Signs Temp Pulse Resp BP Pulse Ox 07/09/20 21:00 74 16 194/84 H 96 07/09/20 20:43 79 20 209/88 H 95 07/09/20 20:30 86 20 203/97 H 99 07/09/20 20:16 91 H 20 220/98 H 99 07/09/20 20:00 88 20 227/99 H 98 07/09/20 19:54 89 20 214/96 H 99 07/09/20 19:30 90 16 238/110 H 97 07/09/20 18:33 36.4 C L 96 H 18 227/98 H 99 Code Status & VTE Plan VTE Prophylaxis Plan VTE Prophylaxis will be ordered: Yes Supervising Physician Co-Signing Physician Notes Attending addendum: I have physically seen this patient, have supervised the medical residents activities, and agree with the H&P unless as otherwise noted. Assessment and Plan: Intractable nausea and vomiting/dehydration- Placed on Compazine, Zofran, Reglan and Benadryl as needed. NSS 100 mils per hour Uncontrolled high blood pressure- Likely did not take his medications this morning. Will be given the dosages now. Hydralazine 10 mg IV every 4 hours as needed systolic blood pressure greater than 160 Anxiety with depression- Large component of his medical noncompliance Continue Ativan, sertraline and bupropion ESRD on HD- Consult nephrology Remaining orders and notations as noted Resident Activity Tracking Resident Involvement: Resident Care Provided Care Provided: Adult Hospital Medicine (1) Depression Active/Remission status: remission status unspecified Depression Type: major depressive disorder Major depression recurrence: recurrent Qualified Code(s): F33.9 - Major depressive disorder, recurrent, unspecified (2) Vomiting Nausea presence: with nausea Vomiting Intractability: intractable Vomiting type: unspecified Qualified Code(s): R11.2 - Nausea with vomiting, unspecified
[2020-07-09] MEDS ORDERED: ACETAMINOPHEN 325 MG TAB PO PRN (23:37)
[2020-07-09] MEDS ORDERED: POLYETHYLENE (MIRALAX) 17 GM PACK PO PRN (23:37)
[2020-07-09] MEDS ORDERED: GLUCAGON FOR INJ 1 MG VIAL SQ PRN (23:37)
[2020-07-09] MEDS ORDERED: CARBOHYDRATES FOR HYPOGLYCEMIA PO PRN (23:37)
[2020-07-09] MEDS ORDERED: GLUCOSE 40% GEL 15 GM TUBE PO PRN (23:37)
[2020-07-09] MEDS ORDERED: PROCHLORPERAZINE 25 MG SUPP PR PRN (23:37)
[2020-07-09] MEDS ORDERED: GLUCOSE 10 TABS/TUBE PO PRN (23:37)
[2020-07-09] MEDS ORDERED: DEXTROSE 50% 50 ML SYRINGE IV PRN (23:37)
[2020-07-10] MEDS ORDERED: Nursing to Pharmacy Communication SCH ×3 (00:15→09:30)
[2020-07-10] MEDS: ONDANSETRON INJ 2 MG/ML 2 ML VIAL IV PRN ×2 (00:55→07:06)
[2020-07-10] MEDS ORDERED: SODIUM CHLORIDE 0.9% 1000ML 1,000 ML IV SCH (02:15)
[2020-07-10] MEDS ORDERED: PROCHLORPERAZINE 5 MG in SYRINGE 4 ML IV PRN (04:00)
[2020-07-10] MEDS ORDERED: INSULIN ASPART 100 UNITS/ML 3 ML PEN SC SCH ×3 (06:00→11:30)
[2020-07-10 08:30] LABS: Basophils # (auto) 0.01 K/uL (0-0.2); Basophils % (auto) 0.1 %; Hemoglobin 11.1 g/dL (14.0-18.0); Immature Granulocytes # (auto) 0.02 K/uL (0.00-0.02); Immature Granulocytes % (auto) 0.2 %; Lymphocytes # (auto) 0.61 K/uL (1.2-3.4); Mean Corpuscular Hemoglobin 32.3 pg (25-34); Mean Corpuscular Hgb Conc 33.6 g/dL (32-36); Mean Corpuscular Volume 95.9 fL (80-100); Mean Platelet Volume 8.8 fL (7.4-10.4); Monocytes # (auto) 0.66 K/uL (0.11-0.59); Monocytes % (auto) 5.5 %; Neutrophils # (auto) 10.78 K/uL (1.4-6.5); Neutrophils % (auto) 89.2 %; Platelet Count 273 K/uL (130-400); RDW Coefficient of Variation 12.3 % (11.5-14.5); Red Blood Count 3.44 M/uL (4.7-6.1); White Blood Count 12.08 K/uL (4.8-10.8)
[2020-07-10] MEDS ORDERED: carvediloL 12.5 MG TAB PO SCH (09:00)
[2020-07-10] MEDS ORDERED: buPROPion SR 100 MG TABCR PO SCH (09:00)
[2020-07-10] MEDS ORDERED: SERTRALINE HCL 100 MG TABLET PO SCH (09:00)
[2020-07-10] MEDS ORDERED: PANTOprazole 40 MG TAB PO SCH (09:00)
[2020-07-10] MEDS ORDERED: METOCLOPRAMIDE HCL 10 MG TABLET PO SCH (09:00)
[2020-07-10] MEDS ORDERED: LOSARTAN POTASSIUM 50 MG TAB PO SCH (09:00)
[2020-07-10 09:06] LABS: BUN Creatinine Ratio 7.1 (10-20); Calcium 8.4 mg/dl (8.5-10.1); Creatinine Clr Calc Pharmacy 12.4 ml/min; Est GFR (African American) 11.5; Est GFR (Non-African American) 9.9; Magnesium 2.3 mg/dl (1.8-2.4); Potassium 3.7 mmol/L (3.5-5.1)
[2020-07-10] MEDS: HEPARIN SOD 5,000 UNIT/0.5 ML VIAL SQ SCH ×2 (09:34→09:41)
[2020-07-10] MEDS ORDERED: INSULIN GLARGINE SOLOSTAR 100 UNITS/ML 3 ML PEN SC ONE (10:30)
--- NOTE | 2020-07-10 13:07 | Discharge Summary ---
Date of Service July 10, 2020 Admission HPI Per Admitting Provider 49-year-old male past medical history significant for ESRD on HD, DM 1, HTN, anxiety, depression, CAD presents to ED for intractable nausea, headache, vomiting x1 day. Spoke to patient's mother over the phone who also provided some history. This patient has been admitted in the past for similar complaints, has a described history of gastroparesis suspected to be secondary to DM 1 and does have Zofran and Compazine at home, which the patient took today without improvement. Patient did have dialysis today. Reports that he took "some of his medications today", but was unable to list which ones. At time of my interview patient is without chest pain, shortness of breath, abdominal pain, dizziness. Reports that he did have a headache on arrival to ER which has since improved. Still feels actively nauseous with dry heaves, however subjectively improved as compared to arrival. Admission Exam Per Admitting Provider Constitutional: well developed, + ill appearing and + thin Eyes: PERRL, conjunctivae normal, anicteric sclerae ENMT: Nose: + dry nasal mucous membranes Neck: normal visual inspection Respiratory: normal respiratory effort, lungs clear to auscultation Cardiovascular: RRR, no murmur, no edema Gastrointestinal (Abdomen): normal bowel sounds, soft, nontender, no hepatosplenomegaly Musculoskeletal: No cyanosis or clubbing Skin: no rashes, warm and dry Neurologic: AAOx3, normal speech. Bilateral UE, LE, and face without sensory or motor deficits. No tremor. Psychiatric: Orientation: alert and oriented x 3 Affect: + anxious affect Principal Diagnosis Hypertensive Urgency Discharge Exam General: A&Ox3. NAD. Cooperative. HEENT: Atraumatic, normocephalic. Pulm: CTAB A&P. -wheezes, -rales, -rhonchi. Symmetrical chest rise. No increase work of breathing. No respiratory distress. Cardiac: RRR, 1/6 systolic murmur at apex - does not radiate to axilla. Radial pulses intact and symmetrical. Abdominal: soft, non-tender, non-distended, BS x 4 Discharge Data Allergies Allergy/AdvReac Type Severity Reaction Status Date / Time shellfish derived Allergy Severe anaphylaxis Verified 07/09/20 19:42 codeine Allergy Intermediate Hives Verified 07/09/20 19:42 promethazine Allergy Intermediate itchy/hives Verified 07/09/20 19:42 Consultations 07/09/20 20:46 ED Decision to Admit Stat 07/10/20 02:05 Consult Nephrology Routine Hospital Course (1) Vomiting: Jorge Alberto De Los Santos is a 49 yo with PMHx significant for ESRD on HD, DM 1, HTN, anxiety, depression and CAD admitted for intractable nausea and vomiting as well as hypertensive urgency. Intractable nausea and vomiting - N/V x1 day, increased from baseline N/V twice per week due to gastroparesis, several past hospitalizations requiring anti-emetics and IVF - suspect current bout of vomiting triggered increased BPs, see below - Given IVF bolus + NSS 100cc/hr - Received PRN Compazine/Zofran/Reglan/Benadryl and improved to baseline nausea - Tolerated clear liquids and medications as of 07/10/2020 - continue home anti-emetic medications on discharge Hypertensive Urgency - severe headache, BPs 220s/130s, CT Head WNL and EKG/Trop WNL, suspect 07/10 medication non-compliance (missed 07/09 BP meds) - BP improved to 150s/80s after PRN Labetalol 10mg IV x2 and Hydralazine 10mg IV x1 - CHANEL resolved after PRN anti-hypertensives as well as Toradol 10mg IV x1 - continue home medications on discharge Anxiety/depression - Continue home meds: Ativan 0.5 mg twice daily, sertraline 100 daily, bupropion 100 daily ESRD on HD - HD on /, had HD on 07/09 - HD as scheduled after discharge T1DM - continue home insulin regimen (2) Gastroparesis: (3) Depression: (4) 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, with long-term current use of insulin: (5) Anxiety: (6) Hypertensive emergency: Total Time Total Time Spent Total Time Spent (In Minutes): <30 minutes Total Time Includes: Examination of the Patient, Discharge Planning and Medication Reconciliation Discharge Plan Discharge Items Reason For Visit: INTRACTABLE NAUSEA AND VOMITING Discharge Diagnosis: Hypertensive Urgency Condition on Discharge: Fair Activity: Per Instructions section Non-emergency contact: Primary Care Provider and Fleet Sales Manager Call non-emergency contact if: you have any medication questions, your symptoms worsen and you have a fever Follow-up/Referrals: Abbi Ames V., MD [Primary Care Provider] - Diet: Dialysis Renal Addtl Attending Provider Instructions: You were admitted to [facility] on 07/09/2020 for a headache, na usea and vomiting in the setting of very high blood pressures of 230/110 - this is known as hypertensive urgency. You were treated with several doses of IV blood pressure medications (Labetalol, Hydralazine) and your blood pressure appropriately went down to the 150s/70s. You were also treated with several doses of anti-emetic medications to help with your nausea and vomiting - you did well with these medications and did not vomit while hospitalized. You were also given a short bowel rest with no full meals and did well with this - you were able to tolerate liquids on 07/10. Lastly, you were given a medication called Toradol for your headache, and your headache completely resolved as of 07/10. You will be discharged in good, stable condition on 07/10/2020. You should continue to take all of your regular home medications, and you should continue to go to your hemodialysis sessions as scheduled. We hope you continue to feel better. It was a pleasure to help provide your care while you were hospitalized. Pending Studies at Discharge: No Stand-Alone Forms: My [facility], Smoking Cessation Medications and DC Order Prescriptions: Continued bupropion HCl 100 mg tablet sustained-release 12 hr 100 mg PO QAM RF: 0 (DME) Contour Next Test Strips Strip See Dose Instructions .ROUTE .MEDSUPPLY Qty: 300 RF: 3 (DME) pen needle, diabetic [BD Ultra-Fine Annalise Pen Needle] 32 gauge x 5/32" needle See Rx Instructions .ROUTE .MEDSUPPLY Qty: 500 RF: 3 Basaglar KwikPen U-100 Insulin 100 unit/mL (3 mL) insulin pen 12 unit SUBCUT QAM Qty: 15 RF: 3 sertraline 100 mg tablet 100 mg PO QAM Qty: 90 RF: 0 metoclopramide HCl 5 mg tablet 0 mg PO BID RF: 0 lorazepam 0.5 mg tablet 0.5 mg PO Q12 PRN (Reason: Anxiety) RF: 0 carvedilol 25 mg tablet 37.5 mg PO BID Qty: 0 RF: 0 insulin aspart U-100 [Novolog Flexpen U-100 Insulin] 100 unit/mL (3 mL) insulin pen 1 unit SUBCUT UD PRN (Reason: sliding scale) RF: 0 Velphoro 500 mg tablet,chewable 0 mg PO AC RF: 0 prochlorperazine [Compazine] 25 mg suppository 25 mg [place] BID PRN (Reason: nausea and vomiting) Qty: 12 RF: 0 losartan 100 mg tablet 100 mg PO DAILY RF: 0 pantoprazole 40 mg tablet,delayed release (DR/EC) 0 mg PO BID RF: 0 Admission Data Admit Date/Time: 07/09/20 21:28 Attending Provider: Obie Argueta Admit Provider: Rosa Isela Benjamin Primary Care Provider: Abbi Ames V. Other Providers: Colton Guajardo ; Arcenio Ortiz Other Interventions: Discharge Summary Assessment (RN) Last Done: 07/10/20 15:14 Supervising Physician Co-Signing Physician Notes I personally examined the patient and verified all julien points of history and exam, discussed case, and agree with decision making with Dr Lutz. feeling better, able to take PO able to take meds, feels up to going home vitals noted nad heent nc at mmm breathing unlabored no accessory muscles good effort skin no rashes no pallor or icterus no focal neuro deficits intractable nausea/vomiting has improved. uncontrolled BP from not being able to take BP meds has improved. stable for home. otherwise as above Resident Activity Tracking Resident Involvement: Resident Care Provided Care Provided: Adult Hospital Medicine
--- NOTE | 2020-07-10 14:07 | XCELERA ---
[id number]
--- NOTE | 2020-07-10 14:20 | Electrocardiogram Report ---
Test Reason : Blood Pressure : / mmHG Vent. Rate : 095 BPM Atrial Rate : 095 BPM P-R Int : 190 ms QRS Dur : 094 ms QT Int : 380 ms P-R-T Axes : 055 -29 069 degrees QTc Int : 477 ms Poor data quality, interpretation may be adversely affected Normal sinus rhythm Normal ECG When compared with ECG of 16-JUN-2020 16:29, QRS axis Shifted left Confirmed by Jorge Alberto Romero ([id number]) on 07/10/2020 2:20:30 PM Referred By: REFERRED SELF Confirmed By:Jorge Alberto Romero
--- NOTE | 2020-07-10 15:11 | Consultation Report ---
DATE OF CONSULTATION: 07/10/2020 NEPHROLOGY CONSULTATION NOTE REASON FOR CONSULT: Dialysis patient admitted with intractable nausea and vomiting. HISTORY OF PRESENT ILLNESS: The patient is a 49-year-old male with ESRD, on hemodialysis [id number], followed by Dr. Lor Guadalupe, type 1 diabetes, hypertension, anxiety, depression, who presented to the hospital after dialysis yesterday with intractable nausea and vomiting. He had high blood pressure in the Emergency Department; he was given normal saline overnight. At this point, he still has some nausea and vomiting, but it is better. He has been admitted numerous times with intractable nausea and vomiting attributed to gastroparesis. He has had detailed workup in the past for this with no other cause identified. He had full dialysis yesterday through his AV fistula. ALLERGIES: Reviewed and as per H and P. HOME MEDICATIONS: List was reviewed in detail and is as per H and P. PAST MEDICAL AND SURGICAL HISTORY: Includes type 1 diabetes, ESRD -- on hemodialysis [id number]-Rlexke, gastroparesis, which is quite severe. All the complications related with diabetes, coronary artery disease, AV fistula, anemia of chronic disease, lumbar compression fracture, history of kidney stones, hypertension, appendicectomy, shoulder surgery, lithotripsy, hip fracture surgery. FAMILY HISTORY: Positive for myocardial infarction in grandfather and grandmother. No renal disease or dialysis. SOCIAL HISTORY: The patient has never smoked. No alcohol. He is currently single and disabled. REVIEW OF SYSTEMS: Besides the nausea and vomiting, which is chronic, that was lot severe yesterday. Twelve systems reviewed and is otherwise negative. He did not have abdominal pain or diarrhea associated with nausea, vomiting. PHYSICAL EXAMINATION: GENERAL: Awake, alert, oriented x3. He is well developed, chronically ill appearing and thin. HEENT: Mucous membranes moist. NECK: Supple. No jugular venous distention. CHEST: Bilaterally clear to auscultation. CARDIOVASCULAR: S1, S2 regular. ABDOMEN: Soft, nontender. EXTREMITIES: Show no edema. AV fistula has good bruit and thrill. VITAL SIGNS: Most recently include blood pressure 153/68, 97% on room air, pulse rate 97, temperature 37.4. LABORATORY TEST: Done this morning shows creatinine is 6.07, BUN 43, sodium 135, potassium 3.7, hemoglobin 11.1, WBC count 12,000. Chest x-ray shows no acute process. ASSESSMENT AND PLAN: A 49-year-old male with end-stage renal disease, on hemodialysis [id number]-Eqggaj, type 1 diabetes with known severe gastroparesis with multiple admissions in the past with intractable nausea, vomiting, was admitted again with the same complaint yesterday. 1. End-stage renal disease: He does not have any evidence of volume depletion. In fact, he may have volume overload given his very high blood pressure, so I would like to stop the IV fluid. He is for dialysis tomorrow either as an inpatient or outpatient. No fluid or electrolyte imbalance at this time. He has a good arteriovenous fistula. 2. Intractable nausea, vomiting, most likely secondary to gastroparesis, which is not new. He has had numerous workups done in the past for this problem without any obvious other causes. If he is still in the hospital, we will do dialysis tomorrow.
--- NOTE | 2020-07-11 21:48 | Billing Data ---
Date of Service July 11, 2020 Coding Level of Care Code 79817 OBS Care - Level 3
== END 2020-07-10 16:04 | disposition home or self-care (01) ==
LOC: ED 18:32 → 3E 18:32 → SUATTDRO 21:28 → 3E 23:16 → UNDODISOB 07-10 15:15

== ENCOUNTER 2020-09-16 06:19 | Inpatient (IN) ==
[2020-09-16] MEDS ORDERED: diphenhydrAMINE 50 MG/ML VIAL IV STA (07:29)
[2020-09-16] MEDS ORDERED: ONDANSETRON INJ 2 MG/ML 2 ML VIAL IV STA (07:29)
[2020-09-16] MEDS ORDERED: PROCHLORPERAZINE 2 ML IV ONE (07:29)
[2020-09-16] MEDS ORDERED: SODIUM CHLORIDE 0.9% 500 ML IV STA (07:29)
[2020-09-16 07:53] LABS: Basophils # (auto) 0.01 K/uL (0-0.2); Basophils % (auto) 0.1 %; Eosinophils # (auto) 0.01 K/uL (0-0.5); Eosinophils % (auto) 0.1 %; Hematocrit (blood only) 36.1 % (42-52); Hemoglobin 12.3 g/dL (14.0-18.0); Immature Granulocytes # (auto) 0.05 K/uL (0.00-0.02); Immature Granulocytes % (auto) 0.3 %; Lymphocytes # (auto) 0.95 K/uL (1.2-3.4); Lymphocytes % (auto) 6.6 %; Mean Corpuscular Hemoglobin 34.3 pg (25-34); Mean Corpuscular Hgb Conc 34.1 g/dL (32-36); Mean Corpuscular Volume 100.6 fL (80-100); Mean Platelet Volume 8.9 fL (7.4-10.4); Monocytes # (auto) 0.77 K/uL (0.11-0.59); Monocytes % (auto) 5.4 %; Neutrophils # (auto) 12.52 K/uL (1.4-6.5); Neutrophils % (auto) 87.5 %; Platelet Count 491 K/uL (130-400); RDW Coefficient of Variation 13.4 % (11.5-14.5); RDW Standard Deviation 49.5 fL (36.4-46.3); Red Blood Count 3.59 M/uL (4.7-6.1); White Blood Count 14.31 K/uL (4.8-10.8)
[2020-09-16 08:17] LABS: Albumin Globulin Ratio 1.1 (0.9-2); Albumin Level 3.6 gm/dl (3.4-5.0); Bilirubin,Total 0.6 mg/dl (0.2-1); Calcium 8.3 mg/dl (8.5-10.1); Creatinine Clr Calc Pharmacy 8.2 ml/min; Est GFR (African American) 9.3; Globulin 3.4 gm/dl (2.5-4.0); Potassium 4.9 mmol/L (3.5-5.1)
--- NOTE | 2020-09-16 08:47 | Emergency Department Note ---
History of Present Illness General Chief complaint: Nausea Stated complaint: NAUSEA,VOMITING NOT GETTING BETTER, SUGAR LEVEL Time Seen by Provider: 09/16/20 07:19 History of Present Illness Maximum Pain Intensity: 0 50-year-old male, well-known to the emergency department with history of diabetic gastroparesis, end-stage renal disease on dialysis, and frequent nausea with vomiting, who presents to the emergency department this morning with complaint of persistent nausea and vomiting. The patient was seen in the emergency department 2 days ago with similar symptoms. The patient reports that he did not have any significant relief upon return home. The patient reports that he is dry heaving. He denies any abdominal pain, chest pain, shortness of breath, headache, back pain, urinary symptoms or diarrhea. The patient is due for his next dialysis tomorrow. Home Medications Medication Instructions Recorded Confirmed Type bupropion HCl 100 mg tablet,12 hr 100 mg PO QAM ea 04/14/19 09/16/20 History sustained-release lorazepam 0.5 mg tablet 0.5 mg PO Q12 PRN tab 07/25/19 09/16/20 History Contour Next Test Strips #300 ea NS 10/26/19 08/21/20 Rx pen needle, diabetic 32 gauge x #500 ea 01/25/20 09/05/20 Rx 5/32" insulin aspart U-100 [Novolog 1 unit SUBCUT UD PRN 02/01/20 09/16/20 History Flexpen U-100 Insulin] metoclopramide HCl 5 mg tablet 5 mg PO BIDM tab 06/13/20 09/16/20 History sertraline 100 mg tablet 100 mg PO QAM #90 tab 06/21/20 09/16/20 Rx pantoprazole 40 mg PO BID 07/09/20 09/16/20 History prochlorperazine maleate 5 mg 5 mg PO Q6H PRN #30 tab 07/12/20 09/16/20 Rx tablet carvedilol 25 mg tablet 25 mg PO BID tab 08/21/20 09/16/20 History sucroferric oxyhydroxide 500 mg 500 mg PO AC tab 08/21/20 09/16/20 History chewable tablet amlodipine 5 mg tablet 5 mg PO DAILY 09/05/20 09/16/20 History atorvastatin 10 mg tablet 10 mg PO DAILY 09/05/20 09/16/20 History famotidine 20 mg tablet 20 mg PO 3XWK 09/05/20 09/16/20 History insulin glargine 100 unit/mL (3 10 unit SUBCUT QAM ml 09/05/20 09/16/20 History mL) subcutaneous pen losartan 100 mg tablet 100 mg PO DAILY 09/05/20 09/16/20 History melatonin 3 mg tablet 3 mg PO DAILY tab 09/05/20 09/16/20 History quetiapine 25 mg tablet 12.5 mg PO DAILY tab 09/05/20 09/16/20 History Allergies Allergy/AdvReac Type Severity Reaction Status Date / Time shellfish derived Allergy Severe anaphylaxis Verified 09/16/20 07:17 codeine Allergy Intermediate Hives Verified 09/16/20 07:17 promethazine Allergy Intermediate itchy/hives Verified 09/16/20 07:17 Past Med/Surg History Medical History Anemia of chronic disease Anxiety AV fistula left arm CAD (coronary artery disease) mild, non-obstructive CAD per 10/2018 cardiac cath> [facility] Depression Depression Diabetic neuropathy Diabetic retinopathy Dialysis patient DKA (diabetic ketoacidoses) DKA (diabetic ketoacidoses) Esophagitis ESRD (end stage renal disease) M,W,F (Follows with Dr. Taylor Higgins; [facility]) ESRD on dialysis Gastroparesis GERD (gastroesophageal reflux disease) Headache Hematemesis Hypertension Hypertensive urgency Kidney stones Lumbar compression fracture Lumbar radiculopathy Peripheral neuropathy Retinopathy due to secondary diabetes Severe protein-calorie malnutrition Vomiting Surgical History H/O shoulder surgery RIGHT History of appendectomy History of cardiac cath 10/2018= no stents, no obstructive disease (at [facility]) History of cataract surgery History of esophagogastroduodenoscopy (EGD) History of hip surgery left HIP ARTHROSCOPY History of lithotripsy History of open reduction and internal fixation (ORIF) procedure right hip Nausea and vomiting after administration of anesthetic agent Permanent central venous catheter in place Permacath and since has been removed Family History Grandfather Myocardial infarction Grandfather (Maternal) Family history of diabetes mellitus Uncle Myocardial infarction Denies family history of Colon cancer Ovarian cancer Prostate cancer Breast cancer Social History Smoking Status: Never smoker Second Hand Exposure: No; Hx Alcohol Use: No Hx Substance Use: No Preferred Language: Yakut Communication Ability: Effective Visual Impairment: No Limitations Hearing Ability: Normal Dental Floss Packer Required: No Beliefs That Will Affect Care: None marital status: Current Living Situation: Parent current occupational status: disabled How many Children do You have: 2 Other Information That Helps Us Care for You: No Feels Safe at Home: Yes Safety Concerns: Feels Safe At This Time Childhood Exposure to Second-Hand Smoke: Yes Dental Care, Regularly: No Physical Activity Frequency: 1-2 Times per Week Seatbelt Use: always Sunscreen Use: No Assistive Devices: Glasses Review of Systems 10 system review was performed and was negative except for pertinent positives and negatives as indicated in history of present illness Physical Exam Vital Signs Vital Signs - 24 hr 09/16/20 06:24 09/16/20 06:50 09/16/20 06:51 Temperature 36.7 C Temperature Source Temporal Artery Scan Pulse Rate 72 76 78 Pulse Rate from SpO2 Sensor 76 77 Respiratory Rate 20 12 15 Blood Pressure 157/72 H 205/101 H Blood Pressure Mean 100 135 Pulse Oximetry 99 90 97 Oxygen Delivery Method Room Air Room Air Nasal Cannula Oxygen Flow Rate 2 Sepsis Recent Fever Within 48 Hours No Sepsis New/Unexplained Change in Mental Status N/A Sepsis Action Taken by Nursing No Action Required 09/16/20 06:52 09/16/20 07:00 09/16/20 07:01 Temperature Temperature Source Pulse Rate 76 76 77 Pulse Rate from SpO2 Sensor 76 76 78 Respiratory Rate 16 14 18 Blood Pressure 192/98 H 196/98 H Blood Pressure Mean 129 130 Pulse Oximetry 95 100 100 Oxygen Delivery Method Nasal Cannula Nasal Cannula Nasal Cannula Oxygen Flow Rate 2 2 2 Sepsis Recent Fever Within 48 Hours Sepsis New/Unexplained Change in Mental Status Sepsis Action Taken by Nursing 09/16/20 07:10 09/16/20 07:20 09/16/20 07:30 Temperature Temperature Source Pulse Rate 77 78 75 Pulse Rate from SpO2 Sensor 77 Respiratory Rate 20 17 16 Blood Pressure 198/89 H Blood Pressure Mean 125 Pulse Oximetry 100 99 Oxygen Delivery Method Nasal Cannula Nasal Cannula Oxygen Flow Rate 2 2 Sepsis Recent Fever Within 48 Hours Sepsis New/Unexplained Change in Mental Status Sepsis Action Taken by Nursing 09/16/20 07:31 09/16/20 07:40 09/16/20 07:50 Temperature Temperature Source Pulse Rate 73 77 78 Pulse Rate from SpO2 Sensor Respiratory Rate 14 20 17 Blood Pressure Blood Pressure Mean Pulse Oximetry Oxygen Delivery Method Oxygen Flow Rate Sepsis Recent Fever Within 48 Hours Sepsis New/Unexplained Change in Mental Status Sepsis Action Taken by Nursing 09/16/20 08:00 09/16/20 08:01 09/16/20 08:10 Temperature Temperature Source Pulse Rate 79 78 78 Pulse Rate from SpO2 Sensor Respiratory Rate 19 20 20 Blood Pressure 179/88 H Blood Pressure Mean 118 Pulse Oximetry 100 Oxygen Delivery Method Nasal Cannula Oxygen Flow Rate 2 Sepsis Recent Fever Within 48 Hours Sepsis New/Unexplained Change in Mental Status Sepsis Action Taken by Nursing 09/16/20 08:20 09/16/20 08:30 09/16/20 08:31 Temperature Temperature Source Pulse Rate 77 77 78 Pulse Rate from SpO2 Sensor Respiratory Rate 14 18 21 Blood Pressure 181/90 H Blood Pressure Mean 120 Pulse Oximetry 95 Oxygen Delivery Method Oxygen Flow Rate Sepsis Recent Fever Within 48 Hours Sepsis New/Unexplained Change in Mental Status Sepsis Action Taken by Nursing 09/16/20 08:40 09/16/20 08:50 09/16/20 09:00 Temperature Temperature Source Pulse Rate 77 78 79 Pulse Rate from SpO2 Sensor Respiratory Rate 19 19 21 Blood Pressure 180/89 H Blood Pressure Mean 119 Pulse Oximetry 97 Oxygen Delivery Method Room Air Oxygen Flow Rate Sepsis Recent Fever Within 48 Hours Sepsis New/Unexplained Change in Mental Status Sepsis Action Taken by Nursing 09/16/20 09:01 09/16/20 09:10 09/16/20 09:20 Temperature Temperature Source Pulse Rate 79 78 78 Pulse Rate from SpO2 Sensor Respiratory Rate 18 14 18 Blood Pressure Blood Pressure Mean Pulse Oximetry Oxygen Delivery Method Oxygen Flow Rate Sepsis Recent Fever Within 48 Hours Sepsis New/Unexplained Change in Mental Status Sepsis Action Taken by Nursing 09/16/20 09:30 09/16/20 09:31 09/16/20 09:40 Temperature Temperature Source Pulse Rate 79 79 79 Pulse Rate from SpO2 Sensor Respiratory Rate 19 16 18 Blood Pressure 190/83 H Blood Pressure Mean 118 Pulse Oximetry 96 Oxygen Delivery Method Room Air Oxygen Flow Rate Sepsis Recent Fever Within 48 Hours Sepsis New/Unexplained Change in Mental Status Sepsis Action Taken by Nursing 09/16/20 09:50 09/16/20 10:00 09/16/20 10:01 Temperature Temperature Source Pulse Rate 79 79 78 Pulse Rate from SpO2 Sensor Respiratory Rate 17 18 13 Blood Pressure 192/88 H Blood Pressure Mean 122 Pulse Oximetry 97 Oxygen Delivery Method Room Air Oxygen Flow Rate Sepsis Recent Fever Within 48 Hours Sepsis New/Unexplained Change in Mental Status Sepsis Action Taken by Nursing 09/16/20 10:10 09/16/20 10:20 09/16/20 10:30 Temperature Temperature Source Pulse Rate 79 79 80 Pulse Rate from SpO2 Sensor Respiratory Rate 19 18 17 Blood Pressure 191/92 H Blood Pressure Mean 125 Pulse Oximetry 98 Oxygen Delivery Method Room Air Oxygen Flow Rate Sepsis Recent Fever Within 48 Hours Sepsis New/Unexplained Change in Mental Status Sepsis Action Taken by Nursing 09/16/20 10:31 09/16/20 10:40 09/16/20 11:01 Temperature Temperature Source Pulse Rate 82 79 78 Pulse Rate from SpO2 Sensor 78 Respiratory Rate 20 18 18 Blood Pressure 213/87 H Blood Pressure Mean 129 Pulse Oximetry 99 Oxygen Delivery Method Oxygen Flow Rate Sepsis Recent Fever Within 48 Hours Sepsis New/Unexplained Change in Mental Status Sepsis Action Taken by Nursing 09/16/20 11:30 09/16/20 12:00 Temperature Temperature Source Pulse Rate 76 78 Pulse Rate from SpO2 Sensor 76 Respiratory Rate 16 21 Blood Pressure 188/86 H 192/83 H Blood Pressure Mean 120 119 Pulse Oximetry 99 Oxygen Delivery Method Oxygen Flow Rate Sepsis Recent Fever Within 48 Hours Sepsis New/Unexplained Change in Mental Status Sepsis Action Taken by Nursing CONSTITUTIONAL: Frail appealing male. Patient is dry heaving on my examination. HEENT: Normocephalic, atraumatic. No subconjunctival hemorrhage, scleral icterus or conjunctival injection/pallor. NECK: Full active range of motion without discomfort. LYMPHATICS: No cervical chain adenopathy. RESPIRATORY: Clear to auscultation bilaterally with no wheezing, crackles, rhonchi or stridor. CARDIOVASCULAR: Regular rate and rhythm with a grade 2 out of 6 systolic ejection murmur, best heard at the left lower sternal border. No rubs or gallops appreciated. GASTROINTESTINAL: Bowel sounds present in all quadrants. Patient has no abdominal tenderness to palpation. MUSCULOSKELETAL: Full range of motion of all joints without discomfort. INTEGUMENTARY: No rash or other significant dermatologic conditions noted. HEMATOLOGIC: No ecchymosis or petechiae. PSYCHIATRIC: Flat affect. NEUROLOGIC: No focal neurologic deficits noted. Course Course Patient history and physical exam were performed. Nurses notes were reviewed. Vital signs were reviewed, showing an elevated blood pressure of 157/72. The patient is not tachycardic, febrile or hypoxic. I also reviewed prior medical records, particularly looking at different treatment regimens that the patient has received in the past. IV access was established, and labs were drawn. The patient was hydrated with a normal saline 500 cc bolus. The patient was also administered IV Zofran, Compazine, Tylenol and Benadryl. Review of labs shows a leukocytosis and mild anemia, which is baseline for the patient. CMP shows a sodium of 132 which is somewhat on the low end of his normal sodium level. Creatinine is 7.22, consistent with end-stage renal disease. Carbon dioxide level is normal with an anion gap of 14. LFTs and lipase are normal. I did reevaluate the patient at 1 hour after medication administration, and reported feeling sleepy. He did report improvement of his nausea, but did still have some residual nausea. At this point, I allow the patient to rest for an additional 45 minutes. Upon reevaluation, the patient reported that his nausea was getting worse again. At this point, the case was also further discussed with Dr. Brooks, ED attending physician, who reviewed laboratory studies, as well as patient symptoms and history, and recommended hospitalist consultation. The case was then further discussed with the [facility] hospitalist group, who did come to the emergency department for further evaluation, and agreed to admission. Please see their dictation for further treatment and final disposition. COVID-19 test was also ordered and was negative. Administered Medications Heparin Sodium (Porcine) (Heparin Sod 5,000 Unit/0.5 Ml Vial) 5,000 units SQ Q8 JACKI Stop: 10/16/20 13:59 Last Admin: 09/16/20 15:05 Dose: 5,000 units Documented by: [id number] Erythromycin Lactobionate 100 (mg/ Sodium Chloride) 102 mls @ 102 mls/hr IV Q12H JACKI Stop: 09/17/20 00:29 Last Infusion: 09/16/20 14:43 Dose: 0 mls/hr Documented by: [id number] Admin: 09/16/20 12:11 Dose: 102 mls/hr Documented by: [id number] Dextrose/Electrolytes (D5w Normosol-R) 1,000 mls @ 75 mls/hr IV .[id number] ONE Stop: 09/17/20 01:06 Last Admin: 09/16/20 14:34 Dose: 75 mls/hr Documented by: [id number] Prochlorperazine 10 mg/ (Syringe) 10 mls @ 5 mls/min IV Q8H JACKI Stop: 09/17/20 07:01 Last Admin: 09/16/20 15:05 Dose: 5 mls/min Documented by: [id number] Ondansetron HCl (Ondansetron Inj 2 Mg/Ml 2 Ml Vial) 4 mg IV Q8 JACKI Stop: 10/16/20 13:59 Last Admin: 09/16/20 15:05 Dose: 4 mg Documented by: [id number] Discontinued Medications Diphenhydramine HCl (Diphenhydramine 50 Mg/Ml Vial) 50 mg IV NOW STA Stop: 09/16/20 07:30 Last Admin: 09/16/20 07:41 Dose: 50 mg Documented by: [id number] Sodium Chloride (Nss) 500 mls @ 999 mls/hr IV .Q31M STA Stop: 09/16/20 07:59 Last Infusion: 09/16/20 08:26 Dose: 0 mls/hr Documented by: [id number] Admin: 09/16/20 07:41 Dose: 999 mls/hr Documented by: [id number] Prochlorperazine (Compazine) 2 mls @ 1 mls/min IV ONE ONE Stop: 09/16/20 07:30 Last Admin: 09/16/20 07:41 Dose: 1 mls/min Documented by: [id number] Labetalol HCl (Labetalol Hcl Iv 5 Mg/Ml 20ml) 10 mg IV NOW ONE Stop: 09/16/20 10:46 Last Admin: 09/16/20 11:10 Dose: 10 mg Documented by: [id number] Cosigned by: [id number] Miscellaneous Information (Pharmacy Glycemic Mgmt Consult) 1 ea N/A NOW STA Stop: 09/16/20 12:35 Last Admin: 09/16/20 14:34 Dose: 1 ea Documented by: [id number] Ondansetron HCl (Ondansetron Inj 2 Mg/Ml 2 Ml Vial) 4 mg IV NOW STA Stop: 09/16/20 07:30 Last Admin: 09/16/20 07:41 Dose: 4 mg Documented by: [id number] Medical Decision Making Medical Records Attestation: I reviewed the patient's medical records. Home Medications Current Medication List: was personally reviewed by me Laboratory Data Attestation: I reviewed the patient's lab results. Result diagrams: 09/16/20 06:45 09/16/20 14:23 Lab Results 09/16/20 09/16/20 09/16/20 Range/Units 06:45 06:45 10:49 WBC 14.31 H (4.8-10.8) K/uL RBC 3.59 L (4.7-6.1) M/uL Hgb 12.3 L (14.0-18.0) g/dL Hct 36.1 L (42-52) % MCV 100.6 H (80-100) fL MCH 34.3 H (25-34) pg MCHC 34.1 (32-36) g/dL RDW Std Deviation 49.5 H (36.4-46.3) fL RDW Coeff of Kami 13.4 (11.5-14.5) % Plt Count 491 H (130-400) K/uL MPV 8.9 (7.4-10.4) fL Immature Gran % (Auto) 0.3 % Neut % (Auto) 87.5 % Lymph % (Auto) 6.6 % Calloway % (Auto) 5.4 % Eos % (Auto) 0.1 % Baso % (Auto) 0.1 % Neut # (Auto) 12.52 H (1.4-6.5) K/uL Lymph # (Auto) 0.95 L (1.2-3.4) K/uL Calloway # (Auto) 0.77 H (0.11-0.59) K/uL Eos # (Auto) 0.01 (0-0.5) K/uL Baso # (Auto) 0.01 (0-0.2) K/uL Immature Gran # (Auto) 0.05 H (0.00-0.02) K/uL Sodium 132 L (136-145) mmol/L Potassium 4.9 D (3.5-5.1) mmol/L Chloride 95 L (98-107) mmol/L Carbon Dioxide 22 (21-32) mmol/L Anion Gap 14.0 H (3-11) BUN 58 H D (7-18) mg/dl Creatinine 7.22 H* D (0.6-1.4) mg/dl Est Cr Clr Drug Dosing 8.2 ml/min Est GFR ( Amer) 9.3 Est GFR (Non-Af Amer) 8.0 BUN/Creatinine Ratio 8.0 L (10-20) Glucose 180 H (70-99) mg/dl Calcium 8.3 L (8.5-10.1) mg/dl Total Bilirubin 0.6 (0.2-1) mg/dl AST 8 L (15-37) U/L ALT 15 (12-78) U/L Alkaline Phosphatase 92 (45-117) U/L Total Protein 7.0 (6.4-8.2) gm/dl Albumin 3.6 (3.4-5.0) gm/dl Globulin 3.4 (2.5-4.0) gm/dl Albumin/Globulin Ratio 1.1 (0.9-2) Lipase 67 L (73-393) U/L COVID-19 Eval Order CovFluRsv at [facility] SARS-CoV-2 (PCR) (Negative) Influenza Type A (PCR) (Neg) Influenza Type B (PCR) (Neg) RSV (RT-PCR) (Neg) 09/16/20 Range/Units 10:49 WBC (4.8-10.8) K/uL RBC (4.7-6.1) M/uL Hgb (14.0-18.0) g/dL Hct (42-52) % MCV (80-100) fL MCH (25-34) pg MCHC (32-36) g/dL RDW Std Deviation (36.4-46.3) fL RDW Coeff of Kami (11.5-14.5) % Plt Count (130-400) K/uL MPV (7.4-10.4) fL Immature Gran % (Auto) % Neut % (Auto) % Lymph % (Auto) % Calloway % (Auto) % Eos % (Auto) % Baso % (Auto) % Neut # (Auto) (1.4-6.5) K/uL Lymph # (Auto) (1.2-3.4) K/uL Calloway # (Auto) (0.11-0.59) K/uL Eos # (Auto) (0-0.5) K/uL Baso # (Auto) (0-0.2) K/uL Immature Gran # (Auto) (0.00-0.02) K/uL Sodium (136-145) mmol/L Potassium (3.5-5.1) mmol/L Chloride (98-107) mmol/L Carbon Dioxide (21-32) mmol/L Anion Gap (3-11) BUN (7-18) mg/dl Creatinine (0.6-1.4) mg/dl Est Cr Clr Drug Dosing ml/min Est GFR ( Amer) Est GFR (Non-Af Amer) BUN/Creatinine Ratio (10-20) Glucose (70-99) mg/dl Calcium (8.5-10.1) mg/dl Total Bilirubin (0.2-1) mg/dl AST (15-37) U/L ALT (12-78) U/L Alkaline Phosphatase (45-117) U/L Total Protein (6.4-8.2) gm/dl Albumin (3.4-5.0) gm/dl Globulin (2.5-4.0) gm/dl Albumin/Globulin Ratio (0.9-2) Lipase (73-393) U/L COVID-19 Eval Order SARS-CoV-2 (PCR) NEGATIVE (Negative) Influenza Type A (PCR) Negative (Neg) Influenza Type B (PCR) Negative (Neg) RSV (RT-PCR) Negative (Neg) Imaging Data Radiologist's Impression: KUB X-Ray 09/16/20 10:29 KUB CLINICAL HISTORY: nausea/vomiting, gastroparesis COMPARISON STUDY: CT of the abdomen and pelvis June 16, 2020. FINDINGS: Right femoral internal fixation hardware is partially imaged. Electronic device projects of the right abdomen. The bowel gas pattern is normal. Amount of stool within the colon and rectum is within normal limits. M oderate vascular calcification is present. Pelvic calcifications reflect phleboliths. 6 mm right renal calculus is noted. This was shown on prior CT. Postoperative findings from appendectomy are noted. IMPRESSION: 1. No evidence for a bowel obstruction. 2. Right nephrolithiasis. No ureteral calculi. ACT 112: Negative or not required by law. Electronically signed by: Gabino Cool M.D. 09/16/2020 10:58 AM Blood Pressure Blood Pressure Findings: Elevated blood pressure MDM Narrative Patient presents to the emergency department with complaint of nausea and vomiting, likely secondary to diabetic gastroparesis. The patient has been dealing with these issues for quite some time. It is noted that the patient has had a prior Botox injections, and is scheduled in the near future. Patient also has a history of end-stage renal disease on dialysis. I was unable to control the patient's nausea and vomiting while in the emergency department, and do feel given the patient's medical history and fragility that he would benefit from hospitalist evaluation and management. The patient's work-up today is not suggestive of any major infectious etiology. I do not suspect diabetic ketoacidosis. Laboratory studies are not suggestive of pancreatitis, cholecystitis or hepatitis. The patient denies any abdominal pain, chest pain or shortness of breath to suggest other surgical abdomen, major cardiac event, pneumonia, pneumothorax or other similar etiologies. Impression & Plan Intractable vomiting with nausea, ESRD on dialysis, Diabetic gastroparesis Discharge Plan Visit Data Chief Complaint: Nausea Stated Complaint: NAUSEA,VOMITING NOT GETTING BETTER, SUGAR LEVEL ED Provider: Terrance Brooks ED Midlevel Provider: Wagner Patel Discharge Problem: Intractable vomiting with nausea, ESRD on dialysis, Diabetic gastroparesis Patient Disposition: Admitted As Inpatient Discharge Instructions Interventions: ED Discharge Assessment Last Done: 09/16/20 13:14
[2020-09-16] MEDS ORDERED: LABETALOL HCL IV 5 MG/ML 20ML IV ONE (10:45)
--- NOTE | 2020-09-16 11:00 | XRay Report ---
KUB CLINICAL HISTORY: nausea/vomiting, gastroparesis COMPARISON STUDY: CT of the abdomen and pelvis June 16, 2020. FINDINGS: Right femoral internal fixation hardware is partially imaged. Electronic device projects of the right abdomen. The bowel gas pattern is normal. Amount of stool within the colon and rectum is w ithin normal limits. Moderate vascular calcification is present. Pelvic calcifications reflect phlebo liths. 6 mm right renal calculus is noted. This was shown on prior CT. Postoperative findings from ap pendectomy are noted. IMPRESSION: 1. No evidence for a bowel obstruction. 2. Right nephrolithiasis. No ureteral calculi. ACT 112: Negative or not required by law. Electronically signed by: aGbino Cool M.D. 09/16/2020 10:58 AM
--- NOTE | 2020-09-16 11:02 | History & Physical Report ---
Date of Service September 16, 2020 Assessment & Plan (1) Diabetic gastroparesis: DX via CT scan with Botox injection and was discussion of this being pursued and per the dad is scheduled for the end of the month. - Will bring patient in for supportive care and get his n/v under control so that he may be able to start tolerating oral fluids. - Emycin x2 doses, short live benefit and Qtc prolongation will be monitored on telemetry - IV Compazine, Zofran, scheduled - Reglan vs. Amend if this remains intractable - Replete intravascular volume with [id number] at 75 ml/hour - Transition Oral Meds to IV if able - GI consult placed- appreciate multi-service approach Patient was being followed at [facility] in [place], it has been about a year since he was down there. At that time there was discussion for the antrum pump/nerve stimulator. Per the dad they were released from there secondary to being told the therapy was not very effective. (2) ESRD (end stage renal disease): Gets dialysis MWF - Nephrology [facility] consult placed for dialysis and fluid volume assitance as needed - Thank you for your recommendations and following this case with us. (3) HTN (hypertension): Labetlol IV 10 mg goal 140-180 on his BP - Re-introduce oral medications when able to tolerate (4) Nonischemic cardiomyopathy: ECHO 07/29 with normal LV function and no valvular abnormality - Continue Carvedilol when able to take PO. It is ordered, but may be unable to take - No acute needs - Continue ARB Losartan 100 mg PO daily- did not take medications today - Bp control as above (5) Anxiety: No acute needs at this time - PRN lorazepam is ok (6) Controlled type 1 diabetes mellitus with diabetic neuropathy, with long-term current use of insulin: HGB a1c inseptember 6.7- Pharmacy consult for glucose management until we can get his fluid volume status and nutritional status regulated - (7) Esophagitis: Re-introduce oral medications when tolerating - Famotidine daily now (8) Malnourished: Nutritional consult placed, ? psych as antagonist in this as well. - Small frequent foods, high density, shakes - Chronic support History of Present Illness Chief Complaint: nausea vomitting Primary Care Provider: Abbi Ames MD 50 YOM with history of, ORIF right femur, DM gastroparesis, CAD, diabetic neuropathy, esophagitis, ESRD dialysis dependant, malnutrition. Patient with nonobstructive gastroparesis with CT scan and BOTX injections in the past. he has been admitted to the hospital in July for similar presentation as today as well as EM visit at the end of last week for intractable nausea, vomiting, unable to keep his medications down, or maintain nutritional/fluid intake at home. He comes in today for continued nausea and vomiting and did not notice any significant relief of symptoms through the week. He has been having mostly dry heaves per the dad. The patient was treated in the [facility] IF Zofran, Compazine, Tylenol, Benadryl. Upon my evaluation the patient is sleeping and not really assisting with questioning, however he did repeat back to me what information I was talking to with his dad. His father reports that for the past 2 weeks his symptoms have gotten worse and his nutrition at home has declined especially over the past week. He is not able to keep majority of his medications down, gets full quickly even after a few bites, and oral intake of fluid has not been much. Patient's lab consistent with hemoconcentration as well. Will admit patient to PCU telemetry convert medications to IV that can be for BP control as well as monitoring of his QT level. Attempt addition prokinetic agent and symptom management as well as IV re-hydration until able to tolerate PO. Allergies Allergy/AdvReac Type Severity Reaction Status Date / Time shellfish derived Allergy Severe anaphylaxis Verified 09/16/20 07:17 codeine Allergy Intermediate Hives Verified 09/16/20 07:17 promethazine Allergy Intermediate itchy/hives Verified 09/16/20 07:17 Home Medications Medication Instructions Recorded Confirmed Type bupropion HCl 100 mg tablet,12 hr 100 mg PO QAM ea 04/14/19 09/16/20 History sustained-release lorazepam 0.5 mg tablet 0.5 mg PO Q12 PRN tab 07/25/19 09/16/20 History Contour Next Test Strips #300 ea NS 10/26/19 08/21/20 Rx pen needle, diabetic 32 gauge x #500 ea 01/25/20 09/05/20 Rx 5/32" insulin aspart U-100 [Novolog 1 unit SUBCUT UD PRN 02/01/20 09/16/20 History Flexpen U-100 Insulin] metoclopramide HCl 5 mg tablet 5 mg PO BIDM tab 06/13/20 09/16/20 History sertraline 100 mg tablet 100 mg PO QAM #90 tab 06/21/20 09/16/20 Rx pantoprazole 40 mg PO BID 07/09/20 09/16/20 History prochlorperazine maleate 5 mg 5 mg PO Q6H PRN #30 tab 07/12/20 09/16/20 Rx tablet carvedilol 25 mg tablet 25 mg PO BID tab 08/21/20 09/16/20 History sucroferric oxyhydroxide 500 mg 500 mg PO AC tab 08/21/20 09/16/20 History chewable tablet amlodipine 5 mg tablet 5 mg PO DAILY 09/05/20 09/16/20 History atorvastatin 10 mg tablet 10 mg PO DAILY 09/05/20 09/16/20 History famotidine 20 mg tablet 20 mg PO 3XWK 09/05/20 09/16/20 History insulin glargine 100 unit/mL (3 10 unit SUBCUT QAM ml 09/05/20 09/16/20 History mL) subcutaneous pen losartan 100 mg tablet 100 mg PO DAILY 09/05/20 09/16/20 History melatonin 3 mg tablet 3 mg PO DAILY tab 09/05/20 09/16/20 History quetiapine 25 mg tablet 12.5 mg PO DAILY tab 09/05/20 09/16/20 History Past Med/Surg History Medical History Anemia of chronic disease Anxiety AV fistula left arm CAD (coronary artery disease) mild, non-obstructive CAD per 10/2018 cardiac cath> [facility] Depression Depression Diabetic neuropathy Diabetic retinopathy Dialysis patient DKA (diabetic ketoacidoses) DKA (diabetic ketoacidoses) Esophagitis ESRD (end stage renal disease) M,W,F (Follows with Dr. Taylor Higgins; [facility]) ESRD on dialysis Gastroparesis GERD (gastroesophageal reflux disease) Headache Hematemesis Hypertension Hypertensive urgency Kidney stones Lumbar compression fracture Lumbar radiculopathy Peripheral neuropathy Retinopathy due to secondary diabetes Severe protein-calorie malnutrition Vomiting Surgical History H/O shoulder surgery RIGHT History of appendectomy History of cardiac cath 10/2018= no stents, no obstructive disease (at [facility]) History of cataract surgery History of esophagogastroduodenoscopy (EGD) History of hip surgery left HIP ARTHROSCOPY History of lithotripsy History of open reduction and internal fixation (ORIF) procedure right hip Nausea and vomiting after administration of anesthetic agent Permanent central venous catheter in place Permacath and since has been removed Family History Grandfather Myocardial infarction Grandfather (Maternal) Family history of diabetes mellitus Uncle Myocardial infarction Denies family history of Colon cancer Ovarian cancer Prostate cancer Breast cancer Social History Smoking Status: Never smoker Second Hand Exposure: No; Hx Alcohol Use: No Hx Substance Use: No Preferred Language: Turkish Communication Ability: Effective Visual Impairment: No Limitations Hearing Ability: Normal 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 Required: No Beliefs That Will Affect Care: None marital status: Current Living Situation: Family current occupational status: disabled How many Children do You have: 2 Feels Safe at Home: Yes Childhood Exposure to Second-Hand Smoke: Yes Dental Care, Regularly: No Physical Activity Frequency: 1-2 Times per Week Seatbelt Use: always Sunscreen Use: No Assistive Devices: Glasses Review of Systems Review of Systems: REVIEW OF SYSTEMS: Constitutional: No fever, sweats or chills Eyes: No diplopia, no worsening or blurred vision ENT: normal hearing, no trouble swallowing Respiratory: No cough, sputum, dyspnea at rest or on exertion Cardiovascular: No chest pain, tightness or palpitations Abdomen: (+) nausea, vomiting, No pain, diarrhea or constipation Musculoskeletal: No joint pain, calf pain, swelling Neurologic: (+) weakness fatigue, (-) numbness/tingling, or balance problems Psychiatric: No anxiety or depression Skin: No rash or itch Physical Exam Physical Exam: PHYSICAL EXAM: General: Drowsy, alert, no apparent distress Head: Normocephalic, atraumatic ENT: PERRL, EOMI, no pharyngeal exudate, mucous membranes dry Neuro: AAO x 3, speech clear and appropriate, Drowsy but aware of conversations and answers appropriately, strength intact bilaterally 5/5, sensation intact and equal all extremities and dermatomes, no pronator drift Chest: equal rise and fall of the chest, no accessory muscle use, no heaves or thrills, Clear to auscultation, on room air, Cardiac: Regular rate and rhythm, telemetry reviewed, skin warm dry, cap refill <3 seconds, peripheral pulses +2 no JVD, no murmur, no edema GI: NABS x 4 quadrants, soft, nontender to palpation, no rebound, guarding or tenderness : Spontaneously voiding, no pain, no CVA tenderness, Extremities: Normal inspection, no peripheral edema or erythema, calfs nontender to palpation, malnourished BMI 15 Psych: Normal mood and affect Skin: no rash or erythema Results & Data Results & Data ([facility]) Vital Signs (Past 12 Hours) Vital Signs Temp Pulse Resp BP Pulse Ox 09/16/20 10:40 79 18 09/16/20 10:31 82 20 09/16/20 10:30 80 17 191/92 H 98 09/16/20 10:20 79 18 09/16/20 10:10 79 19 09/16/20 10:01 78 13 09/16/20 10:00 79 18 192/88 H 97 09/16/20 09:50 79 17 09/16/20 09:40 79 18 09/16/20 09:31 79 16 09/16/20 09:30 79 19 190/83 H 96 09/16/20 09:20 78 18 09/16/20 09:10 78 14 09/16/20 09:01 79 18 09/16/20 09:00 79 21 180/89 H 97 09/16/20 08:50 78 19 09/16/20 08:40 77 19 09/16/20 08:31 78 21 09/16/20 08:30 77 18 181/90 H 95 09/16/20 08:20 77 14 09/16/20 08:10 78 20 09/16/20 08:01 78 20 09/16/20 08:00 79 19 179/88 H 100 09/16/20 07:50 78 17 09/16/20 07:40 77 20 09/16/20 07:31 73 14 09/16/20 07:30 75 16 198/89 H 99 09/16/20 07:20 78 17 09/16/20 07:10 77 20 100 09/16/20 07:01 77 18 100 09/16/20 07:00 76 14 196/98 H 100 09/16/20 06:52 76 16 192/98 H 95 09/16/20 06:51 78 15 97 09/16/20 06:50 76 12 205/101 H 90 09/16/20 06:24 36.7 C 72 20 157/72 H 99 Laboratory Results Abnormal lab results 09/16/20 09/16/20 Range/Units 06:45 06:45 WBC 14.31 H (4.8-10.8) K/uL RBC 3.59 L (4.7-6.1) M/uL Hgb 12.3 L (14.0-18.0) g/dL Hct 36.1 L (42-52) % MCV 100.6 H (80-100) fL MCH 34.3 H (25-34) pg RDW Std Deviation 49.5 H (36.4-46.3) fL Plt Count 491 H (130-400) K/uL Neut # (Auto) 12.52 H (1.4-6.5) K/uL Lymph # (Auto) 0.95 L (1.2-3.4) K/uL [place] # (Auto) 0.77 H (0.11-0.59) K/uL Immature Gran # (Auto) 0.05 H (0.00-0.02) K/uL Sodium 132 L (136-145) mmol/L Chloride 95 L (98-107) mmol/L Anion Gap 14.0 H (3-11) BUN 58 H D (7-18) mg/dl Creatinine 7.22 H* D (0.6-1.4) mg/dl BUN/Creatinine Ratio 8.0 L (10-20) Glucose 180 H (70-99) mg/dl Calcium 8.3 L (8.5-10.1) mg/dl AST 8 L (15-37) U/L Lipase 67 L (73-393) U/L Diagnostic Findings KUB CLINICAL HISTORY: nausea/vomiting, gastroparesis COMPARISON STUDY: CT of the abdomen and pelvis June 16, 2020. FINDINGS: Right femoral internal fixation hardware is partially imaged. Electronic device projects of the right abdomen. The bowel gas pattern is normal. Amount of stool within the colon and rectum is within normal limits. Moderate vascular calcification is present. Pelvic calcifications reflect phleboliths. 6 mm right renal calculus is noted. This was shown on prior CT. Postoperative findings from appendectomy are noted. IMPRESSION: 1. No evidence for a bowel obstruction. 2. Right nephrolithiasis. No ureteral calculi. XR chest 1V portable HISTORY: 49 years-old Male abd pain . Acute chest and abdominal pain COMPARISON: Chest radiograph 06/16/2020 TECHNIQUE: Portable AP view of the chest FINDINGS: Cardiomediastinal and hilar silhouettes are within normal limits. There is no pneumothorax, pleural effusion, airspace consolidation or overt pulmonary edema. Bones of the chest appear grossly intact. IMPRESSION: No acute process. Medications Administered Discontinued Medications Diphenhydramine HCl (Diphenhydramine 50 Mg/Ml Vial) 50 mg IV NOW STA Stop: 09/16/20 07:30 Last Admin: 09/16/20 07:41 Dose: 50 mg Documented by: [id number] Sodium Chloride (Nss) 500 mls @ 999 mls/hr IV .Q31M STA Stop: 09/16/20 07:59 Last Infusion: 09/16/20 08:26 Dose: 0 mls/hr Documented by: [id number] Admin: 09/16/20 07:41 Dose: 999 mls/hr Documented by: [id number] Prochlorperazine (Compazine) 2 mls @ 1 mls/min IV ONE ONE Stop: 09/16/20 07:30 Last Admin: 09/16/20 07:41 Dose: 1 mls/min Documented by: [id number] Labetalol HCl (Labetalol Hcl Iv 5 Mg/Ml 20ml) 10 mg IV NOW ONE Stop: 09/16/20 10:46 Last Admin: 09/16/20 11:10 Dose: 10 mg Documented by: [id number] Cosigned by: [id number] Ondansetron HCl (Ondansetron Inj 2 Mg/Ml 2 Ml Vial) 4 mg IV NOW STA Stop: 09/16/20 07:30 Last Admin: 09/16/20 07:41 Dose: 4 mg Documented by: [id number] Home Medications bupropion HCl 100 mg tablet,12 hr sustained-release 100 mg PO QAM ea 04/14/19 [History Confirmed 09/16/20] lorazepam 0.5 mg tablet 0.5 mg PO Q12 PRN tab 07/25/19 [History Confirmed 09/16/20] Contour Next Test Strips #300 ea NS 10/26/19 [Rx Confirmed 08/21/20] pen needle, diabetic 32 gauge x " #500 ea 01/25/20 [Rx Confirmed 09/05/20] insulin aspart U-100 [Novolog Flexpen U-100 Insulin] 1 unit SUBCUT UD PRN 02/01/20 [History Confirmed 09/16/20] metoclopramide HCl 5 mg tablet 5 mg PO BIDM tab 06/13/20 [History Confirmed 09/16/20] sertraline 100 mg tablet 100 mg PO QAM #90 tab 06/21/20 [Rx Confirmed 09/16/20] pantoprazole 40 mg PO BID 07/09/20 [History Confirmed 09/16/20] prochlorperazine maleate 5 mg tablet 5 mg PO Q6H PRN #30 tab 07/12/20 [Rx Confirmed 09/16/20] carvedilol 25 mg tablet 25 mg PO BID tab 08/21/20 [History Confirmed 09/16/20] sucroferric oxyhydroxide 500 mg chewable tablet 500 mg PO AC tab 08/21/20 [History Confirmed 09/16/20] amlodipine 5 mg tablet 5 mg PO DAILY 09/05/20 [History Confirmed 09/16/20] atorvastatin 10 mg tablet 10 mg PO DAILY 09/05/20 [History Confirmed 09/16/20] famotidine 20 mg tablet 20 mg PO 3XWK 09/05/20 [History Confirmed 09/16/20] insulin glargine 100 unit/mL (3 mL) subcutaneous pen 10 unit SUBCUT QAM ml 09/05/20 [History Confirmed 09/16/20] losartan 100 mg tablet 100 mg PO DAILY 09/05/20 [History Confirmed 09/16/20] melatonin 3 mg tablet 3 mg PO DAILY tab 09/05/20 [History Confirmed 09/16/20] quetiapine 25 mg tablet 12.5 mg PO DAILY tab 09/05/20 [History Confirmed 09/16/20] Active Medications Erythromycin Lactobionate 100 (mg/ Sodium Chloride) 102 mls @ 102 mls/hr IV Q12H JACKI Stop: 09/17/20 00:29 Dextrose/Electrolytes (D5w Normosol-R) 1,000 mls @ 75 mls/hr IV .[id number] ONE Stop: 09/17/20 01:06 ECG Additional Comments: Test Reason : Vent. Rate : 091 BPM Atrial Rate : 091 BPM P-R Int : 184 ms QRS Dur : 086 ms QT Int : 404 ms P-R-T Axes : 057 -59 086 degrees QTc Int : 496 ms Code Status & VTE Plan Code Status CODE: Full VTE: HEparin, SCDs VTE Prophylaxis Plan VTE Prophylaxis will be ordered: Yes PG Care Time/CCT Total # of Minutes Spent Total Time Spent with Patient: Total time spent is greater than 50% in coordination of care (as documented) at patient's floor/unit and/or counseling patient: Coding Level of Care Code 46937 Initial Inpt Care Lvl 3 Diagnoses Diabetic gastroparesis E11.43; K31.84 ESRD (end stage renal disease) N18.6 HTN (hypertension) I10 Hypertension type: unspecified Nonischemic cardiomyopathy I42.8 Anxiety F41.9 Controlled type 1 diabetes mellitus with diabetic neuropathy, with long-term current use of insulin E10.40 Esophagitis K20.90 Malnourished E44.0 Malnutrition type: protein-calorie malnutrition Protein-calorie malnutrition severity: moderate (1) Malnourished Malnutrition type: protein-calorie malnutrition Protein-calorie malnutrition severity: moderate Qualified Code(s): E44.0 - Moderate protein-calorie malnutrition (2) HTN (hypertension) Hypertension type: unspecified Qualified Code(s): I10 - Essential (primary) hypertension
[2020-09-16] MEDS ORDERED: D5W NORMOSOL-R 1,000 ML IV ONE (11:47)
[2020-09-16 11:53] LABS: Influenza A virus by PCR Negative (Neg); Influenza B virus by PCR Negative (Neg); RSV by PCR Negative (Neg); SARS CoV2 RNA(COVID-19) InHosp NEGATIVE (Negative)
[2020-09-16] MEDS: SODIUM CHLORIDE 0.9% IV SCH ×2 (12:11→23:20)
[2020-09-16] MEDS: ERYTHROMYCIN IV SCH ×2 (12:11→23:20)
[2020-09-16] MEDS ORDERED: PHARMACY GLYCEMIC MGMT CONSULT STA (12:34)
[2020-09-16] MEDS ORDERED: PHARMACY GLYCEMIC MGMT CONSULT PRN (13:30)
[2020-09-16] MEDS ORDERED: CARBOHYDRATES FOR HYPOGLYCEMIA PO PRN (13:45)
[2020-09-16] MEDS ORDERED: GLUCAGON FOR INJ 1 MG VIAL IM PRN (13:45)
[2020-09-16] MEDS ORDERED: DEXTROSE 50% 50 ML SYRINGE IV PRN (13:45)
[2020-09-16] MEDS ORDERED: GLUCOSE 10 TABS/TUBE PO PRN (13:45)
[2020-09-16] MEDS ORDERED: GLUCOSE 40% GEL 15 GM TUBE PO PRN (13:45)
[2020-09-16] MEDS ORDERED: PNEUMOCOCCAL Polysaccharide Vaccine 25mcg/0.5mL vial/Syr IM ONE (14:45)
[2020-09-16] MEDS: PROCHLORPERAZINE 10 MG in SYRINGE 8 ML IV SCH ×2 (15:05→23:20)
[2020-09-16] MEDS: HEPARIN SOD 5,000 UNIT/0.5 ML VIAL SQ SCH ×3 (15:05→21:52)
[2020-09-16] MEDS: ONDANSETRON INJ 2 MG/ML 2 ML VIAL IV SCH ×2 (15:05→21:04)
--- NOTE | 2020-09-16 15:08 | Pharmacy Report ---
Pharmacy Glycemic Short Note 2 - Date of Service September 16, 2020 - Glycemic Short BSG Results (Last 24 hours): 09/16/20 06:45 Glucose 180 H OUTPATIENT ANTIDIABETIC REGIMEN: * Basaglar 10 units Qam, Novolog SSI ASSESSMENT: * 50 year old type 1 diabetic admitted with N/V. History of gastroparesis, ESRD. Known to glycemic services from recent admissions * BSG in ED 180 this morning - patient now admitted and pending BSG this afternoon * Had RN confirm with patient that he did take his Basaglar dose this AM, plan to start regular insulin ACHS checks PLAN FOR INPATIENT GLYCEMIC CONTROL: * Hold outpatient oral diabetes medications * Basal insulin * Lantus 10 units daily * Bolus insulin * NovoLog per scale ACHS or Q6hrs while NPO * Goal Range: Low 110 mg/dL - High 140 mg/dL * Correction Factor: 40 mg/dL/unit * Nutritional / Prandial insulin per carb ratio of 1 unit per 12 grams CHO consumed PLAN FOR DISCHARGE: * tbd
[2020-09-16 15:37] LABS: Calcium 7.7 mg/dl (8.5-10.1); Creatinine Clr Calc Pharmacy 7.6 ml/min; Est GFR (African American) 8.5; Est GFR (Non-African American) 7.3; Magnesium 2.6 mg/dl (1.8-2.4); Potassium 5.1 mmol/L (3.5-5.1)
[2020-09-16] MEDS: INSULIN HUMAN REGULAR SC SCH ×2 (16:43→21:44)
--- NOTE | 2020-09-16 18:47 | Emergency Department Note ---
ED Visit Note Late entry: 09/14 the patient was taken in signout from Dr. Brooks at change of shift. The patient pending reevaluation following antiemetics and his home blood pressure medicine. In brief, the patient is a 50-year-old gentleman with a past medical history of diabetes, diabetic gastroparesis, end-stage renal disease on hemodialysis who presents emergency department with nausea and vomiting. Blood work was unremarkable without evidence of DKA. The patient's elevated blood pressure was thought to be related to not taking his medications. Upon reevaluation the patient and mother at the bedside did feel as though he was improved and he was able to drink water with his medications and did not have additional nausea or vomiting. Thus, they agree with plan for discharge and outpatient follow-up. .
[2020-09-16 21:33] LABS: Beta-Hydroxybutyrate 9.09 mg/dl (0.2-2.81)
[2020-09-16] MEDS: carvediloL 25 MG TAB PO SCH (21:44)
[2020-09-17 06:17] LABS: Basophils # (auto) 0.02 K/uL (0-0.2); Basophils % (auto) 0.2 %; Eosinophils # (auto) 0.04 K/uL (0-0.5); Eosinophils % (auto) 0.4 %; Hematocrit (blood only) 34.1 % (42-52); Hemoglobin 11.2 g/dL (14.0-18.0); Immature Granulocytes # (auto) 0.06 K/uL (0.00-0.02); Immature Granulocytes % (auto) 0.5 %; Lymphocytes # (auto) 1.65 K/uL (1.2-3.4); Lymphocytes % (auto) 14.6 %; Mean Corpuscular Hemoglobin 33.2 pg (25-34); Mean Corpuscular Hgb Conc 32.8 g/dL (32-36); Mean Corpuscular Volume 101.2 fL (80-100); Mean Platelet Volume 8.6 fL (7.4-10.4); Monocytes # (auto) 1.13 K/uL (0.11-0.59); Neutrophils # (auto) 8.42 K/uL (1.4-6.5); Neutrophils % (auto) 74.3 %; Platelet Count 369 K/uL (130-400); RDW Coefficient of Variation 13.3 % (11.5-14.5); RDW Standard Deviation 49.1 fL (36.4-46.3); Red Blood Count 3.37 M/uL (4.7-6.1); White Blood Count 11.32 K/uL (4.8-10.8)
[2020-09-17] MEDS: PROCHLORPERAZINE 10 MG in SYRINGE 8 ML IV SCH (06:20)
[2020-09-17] MEDS: ONDANSETRON INJ 2 MG/ML 2 ML VIAL IV SCH ×3 (06:20→21:55)
[2020-09-17] MEDS: HEPARIN SOD 5,000 UNIT/0.5 ML VIAL SQ SCH ×3 (06:21→21:57)
[2020-09-17 07:08] LABS: BUN Creatinine Ratio 9.6 (10-20); Calcium 6.9 mg/dl (8.5-10.1); Creatinine Clr Calc Pharmacy 6.8 ml/min; Est GFR (African American) 7.5; Est GFR (Non-African American) 6.5; Magnesium 2.8 mg/dl (1.8-2.4); Potassium 4.8 mmol/L (3.5-5.1)
[2020-09-17] MEDS ORDERED: SODIUM CHLORIDE 0.9% 1000ML 1,000 ML IV PRN (07:24)
[2020-09-17] MEDS ORDERED: HEPARIN SOD (PORCINE) 1000 UNIT/ML IV ONE ×2 (07:24)
[2020-09-17] MEDS: INSULIN HUMAN REGULAR SC SCH ×4 (07:39→21:55)
--- NOTE | 2020-09-17 08:02 | Gastrointestinal Consultation ---
Date of Consultation September 17, 2020 Assessment & Plan (1) Diabetic gastroparesis: This is a 50 y/o male with DM, ESRD on dialysis, gastroparesis and others, admitted with intractable n/v and GI asked to consult for severe gastroparesis. Today pt feeling somewhat improved, no further vomiting, abd soft. Labs reviewed and appear stable. Etiology of his flare unclear but his elevated glucose could be a contributing factor. - Will check urine tox screen (if specimen able to be obtained; per nursing staff pt is anuric) - Appreciate primary service mgmt of his co-morbidities including hyperglycemia - Agree with IV anti-emetics - Reglan BID as per his usual home dose - Supportive care with IVF - Continuing gastroparesis would be beneficial, low-fiber, small frequent meals as tolerated - He is scheduled for EGD +/- Botox on September 27 at [facility] which would be hopefully beneficial to him Thank you for allowing us to participate in the care of this patient. Please call with any acute changes, questions or concerns. Please see addendum below with additional recommendation from my supervising physician. Supervising Physician Co-Signing Physician Notes I saw and evaluated the patient. He has a history of gastroparesis likely related to his history of diabetes. He has a long history and has been seen at a tertiary [facility] as in the past such as [facility] and is presently maintained on Reglan twice daily he notes today that his nausea is much improved Physical examination Patient on dialysis somewhat fatigued this morning No abdominal tenderness Impression: Patient with a history of gastroparesis presented with nausea and vomiting in the setting of hyperglycemia. The patient's symptoms seem to be resolving significantly with improved glycemic control at the present time we would recommend continued use of his Reglan as an outpatient and a low residue diet. Please call with any additional questions or concerns, GI to sign History of Present Illness Reason for Consultation: severe gastroparesis Requesting Physician: RADHIKA Nash Attending Physician: Maninder Greenberg DO History of Present Illness This is a 50 y/o male with PMHx anxiety, T1DM on insulin, gastroparesis, ESRD on dialysis MWF, CAD, anxiety, and others, admitted with intractable n/v, poor PO intake. He was given Emycin x 2 and IV Compazine, IV Zofran and IVF. KUB with nonobstructive bowel pattern. Labs reviewed, he has stable chronic anemia, hyponatremia, normal LFTs, lipase. Of note, glucose was 354 on admission. GI consulted for severe gastroparesis. Today he tells me he is feeling improved; no further vomiting since yesterday. He tolerated some clear liquids for breakfast. Today glucose is 214. He's been having difficulties with recurrent n/v related to his gastroparesis. He had recent admission in Jul 2020 to [facility] for the same, symptoms managed with IV medications, and pt established with our outpt clinic. EGD +/- Botox injection of the pylorus is planned as pt had some success with this in the past. Previously was seen by specialist in [place] for this problem but not since last year. Pt tells me he follows a gastroparesis diet with low fiber, small frequent meals, and DM under fairly good control with last A1C 6.8% in Jul. His symptoms tend to wax and wane. Last week was able to tolerate meat/potatoes, however begun having a flare with postprandial vomiting up to 3-4 x a day and tolerating little PO and weight loss. Bowels move regularly, 2x a day, no melena, hematochezia. Denies hematemesis, fever, abd pain. He uses Reglan at home on a regular basis. Denies illicit drug use including marijuana; denies ETOH/tobacco use. Allergies Allergy/AdvReac Type Severity Reaction Status Date / Time shellfish derived Allergy Severe anaphylaxis Verified 09/16/20 07:17 codeine Allergy Intermediate Hives Verified 09/16/20 07:17 promethazine Allergy Intermediate itchy/hives Verified 09/16/20 07:17 Home Medications Medication Instructions Recorded Confirmed Type bupropion HCl 100 mg tablet,12 hr 100 mg PO QAM ea 04/14/19 09/16/20 History sustained-release lorazepam 0.5 mg tablet 0.5 mg PO Q12 PRN tab 07/25/19 09/16/20 History Contour Next Test Strips #300 ea NS 10/26/19 08/21/20 Rx pen needle, diabetic 32 gauge x #500 ea 01/25/20 09/05/20 Rx 5/32" insulin aspart U-100 [Novolog 1 unit SUBCUT UD PRN 02/01/20 09/16/20 History Flexpen U-100 Insulin] metoclopramide HCl 5 mg tablet 5 mg PO BIDM tab 06/13/20 09/16/20 History sertraline 100 mg tablet 100 mg PO QAM #90 tab 06/21/20 09/16/20 Rx pantoprazole 40 mg PO BID 07/09/20 09/16/20 History prochlorperazine maleate 5 mg 5 mg PO Q6H PRN #30 tab 07/12/20 09/16/20 Rx tablet carvedilol 25 mg tablet 25 mg PO BID tab 08/21/20 09/16/20 History sucroferric oxyhydroxide 500 mg 500 mg PO AC tab 08/21/20 09/16/20 History chewable tablet amlodipine 5 mg tablet 5 mg PO DAILY 09/05/20 09/16/20 History atorvastatin 10 mg tablet 10 mg PO DAILY 09/05/20 09/16/20 History famotidine 20 mg tablet 20 mg PO 3XWK 09/05/20 09/16/20 History insulin glargine 100 unit/mL (3 10 unit SUBCUT QAM ml 09/05/20 09/16/20 History mL) subcutaneous pen losartan 100 mg tablet 100 mg PO DAILY 09/05/20 09/16/20 History melatonin 3 mg tablet 3 mg PO DAILY tab 09/05/20 09/16/20 History quetiapine 25 mg tablet 12.5 mg PO DAILY tab 09/05/20 09/16/20 History Patient History Medical History Anemia of chronic disease Anxiety AV fistula left arm CAD (coronary artery disease) mild, non-obstructive CAD per 10/2018 cardiac cath> [facility] Depression Depression Diabetic neuropathy Diabetic retinopathy Dialysis patient DKA (diabetic ketoacidoses) DKA (diabetic ketoacidoses) Esophagitis ESRD (end stage renal disease) M,W,F (Follows with Dr. Tyalor Higgins; [facility]) ESRD on dialysis Gastroparesis GERD (gastroesophageal reflux disease) Headache Hematemesis Hypertension Hypertensive urgency Kidney stones Lumbar compression fracture Lumbar radiculopathy Peripheral neuropathy Retinopathy due to secondary diabetes Severe protein-calorie malnutrition Vomiting Surgical History H/O shoulder surgery RIGHT History of appendectomy History of cardiac cath 10/2018= no stents, no obstructive disease (at [facility]) History of cataract surgery History of esophagogastroduodenoscopy (EGD) History of hip surgery left HIP ARTHROSCOPY History of lithotripsy History of open reduction and internal fixation (ORIF) procedure right hip Nausea and vomiting after administration of anesthetic agent Permanent central venous catheter in place Permacath and since has been removed Family History Grandfather Myocardial infarction Grandfather (Maternal) Family history of diabetes mellitus Uncle Myocardial infarction Denies family history of Colon cancer Ovarian cancer Prostate cancer Breast cancer Social History Smoking Status: Never smoker Second Hand Exposure: No; Hx Alcohol Use: No Hx Substance Use: No Preferred Language: Yi Communication Ability: Effective Visual Impairment: No Limitations Hearing Ability: Normal Inside Tester Required: No Beliefs That Will Affect Care: None marital status: Current Living Situation: Parent current occupational status: disabled How many Children do You have: 2 Other Information That Helps Us Care for You: No Feels Safe at Home: Yes Safety Concerns: Feels Safe At This Time Childhood Exposure to Second-Hand Smoke: Yes Dental Care, Regularly: No Physical Activity Frequency: 1-2 Times per Week Seatbelt Use: always Sunscreen Use: No Assistive Devices: Glasses Review of Systems Constitutional: no fever and no chills Respiratory: no cough and no dyspnea Cardiovascular: no chest pain, no dyspnea and no edema Gastrointestinal: as per Subjective / HPI Psychiatric: as per Subjective / HPI Endocrine: as per Subjective / HPI Physical Exam Constitutional: WD/WN, vitals as above Resting in bed Eyes: + anicteric sclerae Respiratory: normal respiratory effort, lungs clear to auscultation Cardiovascular: Rate/Rhythm: regular rate and regular rhythm Heart Sounds: no murmur Gastrointestinal (Abdomen): Inspection/Auscultation: abdomen normal to inspection and normal bowel sounds; abdomen not distended Percussion/Palpation: abdomen soft; abdomen nontender Skin: no rashes, warm and dry Psychiatric: A+Ox3, euthymic affect Results & Data ([facility]) Vital Signs (Past 12 Hours) Vital Signs Temp Pulse Pulse Resp BP Pulse Ox 09/17/20 07:53 36.7 C 69 16 160/60 H 96 09/17/20 03:52 36.7 C 67 18 148/76 H 96 09/17/20 01:01 76 09/16/20 23:22 37.1 C 71 18 134/65 96 09/16/20 21:42 78 144/60 H Laboratory Results 09/17/20 09/17/20 09/17/20 Range/Units 07:20 06:03 06:03 WBC 11.32 H (4.8-10.8) K/uL RBC 3.37 L (4.7-6.1) M/uL Hgb 11.2 L (14.0-18.0) g/dL Hct 34.1 L (42-52) % MCV 101.2 H (80-100) fL MCH 33.2 (25-34) pg MCHC 32.8 (32-36) g/dL RDW Std Deviation 49.1 H (36.4-46.3) fL RDW Coeff of Kami 13.3 (11.5-14.5) % Plt Count 369 (130-400) K/uL MPV 8.6 (7.4-10.4) fL Immature Gran % (Auto) 0.5 % Neut % (Auto) 74.3 % Lymph % (Auto) 14.6 % Yates % (Auto) 10.0 % Eos % (Auto) 0.4 % Baso % (Auto) 0.2 % Neut # (Auto) 8.42 H (1.4-6.5) K/uL Lymph # (Auto) 1.65 (1.2-3.4) K/uL Yates # (Auto) 1.13 H (0.11-0.59) K/uL Eos # (Auto) 0.04 (0-0.5) K/uL Baso # (Auto) 0.02 (0-0.2) K/uL Immature Gran # (Auto) 0.06 H (0.00-0.02) K/uL Sodium 134 L (136-145) mmol/L Potassium 4.8 (3.5-5.1) mmol/L Chloride 100 (98-107) mmol/L Carbon Dioxide 21 (21-32) mmol/L Anion Gap 13.0 H (3-11) BUN 83 H (7-18) mg/dl Creatinine 8.60 H* D (0.6-1.4) mg/dl Est Cr Clr Drug Dosing 6.8 ml/min Est GFR ( Amer) 7.5 Est GFR (Non-Af Amer) 6.5 BUN/Creatinine Ratio 9.6 L (10-20) Glucose 214 H (70-99) mg/dl POC Glucose 233 H (70-99) mg/dl Calcium 6.9 L (8.5-10.1) mg/dl Magnesium 2.8 H Beta-Hydroxybutyric Acd (0.2-2.81) mg/dl COVID-19 Eval Order SARS-CoV-2 (PCR) (Negative) Influenza Type A (PCR) (Neg) Influenza Type B (PCR) (Neg) RSV (RT-PCR) (Neg) 09/16/20 09/16/20 09/16/20 Range/Units 20:45 20:27 20:27 WBC (4.8-10.8) K/uL RBC (4.7-6.1) M/uL Hgb (14.0-18.0) g/dL Hct (42-52) % MCV (80-100) fL MCH (25-34) pg MCHC (32-36) g/dL RDW Std Deviation (36.4-46.3) fL RDW Coeff of Kami (11.5-14.5) % Plt Count (130-400) K/uL MPV (7.4-10.4) fL Immature Gran % (Auto) % Neut % (Auto) % Lymph % (Auto) % Yates % (Auto) % Eos % (Auto) % Baso % (Auto) % Neut # (Auto) (1.4-6.5) K/uL Lymph # (Auto) (1.2-3.4) K/uL Yates # (Auto) (0.11-0.59) K/uL Eos # (Auto) (0-0.5) K/uL Baso # (Auto) (0-0.2) K/uL Immature Gran # (Auto) (0.00-0.02) K/uL Sodium (136-145) mmol/L Potassium (3.5-5.1) mmol/L Chloride (98-107) mmol/L Carbon Dioxide (21-32) mmol/L Anion Gap (3-11) BUN (7-18) mg/dl Creatinine (0.6-1.4) mg/dl Est Cr Clr Drug Dosing ml/min Est GFR ( Amer) Est GFR (Non-Af Amer) BUN/Creatinine Ratio (10-20) Glucose 354 H* (70-99) mg/dl POC Glucose 331 H* 336 H* (70-99) mg/dl Calcium (8.5-10.1) mg/dl Magnesium Beta-Hydroxybutyric Acd 9.09 H (0.2-2.81) mg/dl COVID-19 Eval Order SARS-CoV-2 (PCR) (Negative) Influenza Type A (PCR) (Neg) Influenza Type B (PCR) (Neg) RSV (RT-PCR) (Neg) 09/16/20 09/16/20 09/16/20 Range/Units 16:25 14:23 14:23 WBC (4.8-10.8) K/uL RBC (4.7-6.1) M/uL Hgb (14.0-18.0) g/dL Hct (42-52) % MCV (80-100) fL MCH (25-34) pg MCHC (32-36) g/dL RDW Std Deviation (36.4-46.3) fL RDW Coeff of Kami (11.5-14.5) % Plt Count (130-400) K/uL MPV (7.4-10.4) fL Immature Gran % (Auto) % Neut % (Auto) % Lymph % (Auto) % Yates % (Auto) % Eos % (Auto) % Baso % (Auto) % Neut # (Auto) (1.4-6.5) K/uL Lymph # (Auto) (1.2-3.4) K/uL Yates # (Auto) (0.11-0.59) K/uL Eos # (Auto) (0-0.5) K/uL Baso # (Auto) (0-0.2) K/uL Immature Gran # (Auto) (0.00-0.02) K/uL Sodium 131 L (136-145) mmol/L Potassium 5.1 (3.5-5.1) mmol/L Chloride 95 L (98-107) mmol/L Carbon Dioxide 19 L (21-32) mmol/L Anion Gap 17.0 H (3-11) BUN 70 H (7-18) mg/dl Creatinine 7.80 H* D (0.6-1.4) mg/dl Est Cr Clr Drug Dosing 7.6 ml/min Est GFR ( Amer) 8.5 Est GFR (Non-Af Amer) 7.3 BUN/Creatinine Ratio 9.0 L (10-20) Glucose 300 H (70-99) mg/dl POC Glucose 351 H* (70-99) mg/dl Calcium 7.7 L (8.5-10.1) mg/dl Magnesium 2.6 H Cancelled Beta-Hydroxybutyric Acd (0.2-2.81) mg/dl COVID-19 Eval Order SARS-CoV-2 (PCR) (Negative) Influenza Type A (PCR) (Neg) Influenza Type B (PCR) (Neg) RSV (RT-PCR) (Neg) 09/16/20 09/16/20 Range/Units 10:49 10:49 WBC (4.8-10.8) K/uL RBC (4.7-6.1) M/uL Hgb (14.0-18.0) g/dL Hct (42-52) % MCV (80-100) fL MCH (25-34) pg MCHC (32-36) g/dL RDW Std Deviation (36.4-46.3) fL RDW Coeff of Kami (11.5-14.5) % Plt Count (130-400) K/uL MPV (7.4-10.4) fL Immature Gran % (Auto) % Neut % (Auto) % Lymph % (Auto) % Yates % (Auto) % Eos % (Auto) % Baso % (Auto) % Neut # (Auto) (1.4-6.5) K/uL Lymph # (Auto) (1.2-3.4) K/uL Yates # (Auto) (0.11-0.59) K/uL Eos # (Auto) (0-0.5) K/uL Baso # (Auto) (0-0.2) K/uL Immature Gran # (Auto) (0.00-0.02) K/uL Sodium (136-145) mmol/L Potassium (3.5-5.1) mmol/L Chloride (98-107) mmol/L Carbon Dioxide (21-32) mmol/L Anion Gap (3-11) BUN (7-18) mg/dl Creatinine (0.6-1.4) mg/dl Est Cr Clr Drug Dosing ml/min Est GFR ( Amer) Est GFR (Non-Af Amer) BUN/Creatinine Ratio (10-20) Glucose (70-99) mg/dl POC Glucose (70-99) mg/dl Calcium (8.5-10.1) mg/dl Magnesium Beta-Hydroxybutyric Acd (0.2-2.81) mg/dl COVID-19 Eval Order CovFluRsv at [facility] SARS-CoV-2 (PCR) NEGATIVE (Negative) Influenza Type A (PCR) Negative (Neg) Influenza Type B (PCR) Negative (Neg) RSV (RT-PCR) Negative (Neg) Diagnostic Findings KUB: 1. No evidence for a bowel obstruction. 2. Right nephrolithiasis. No ureteral calculi.
[2020-09-17] MEDS: INSULIN GLARGINE SOLOSTAR 100 UNITS/ML 3 ML PEN SQ SCH (09:12)
--- NOTE | 2020-09-17 10:42 | Pharmacy Report ---
Pharmacy Glycemic Short Note 2 - Date of Service September 17, 2020 - Glycemic Short BSG Results (Last 24 hours): 09/16/20 09/16/20 09/16/20 14:23 16:25 20:27 Glucose 300 H POC Glucose 351 H* 336 H* 09/16/20 09/16/20 09/17/20 20:27 20:45 06:03 Glucose 354 H* 214 H POC Glucose 331 H* 09/17/20 07:20 Glucose POC Glucose 233 H OUTPATIENT ANTIDIABETIC REGIMEN: * Basaglar 10 units Qam, Novolog SSI ASSESSMENT: 09/17: * JG is well known to the pharmacy glycemic service - BSGs are historically very labile * More recently we have attempted to achieve better control with scheduled regular insulin doses (per scale) as opposed to Lantus * Will attempt to use once daily basal insulin this admission - low threshold to change back to scheduled regular insulin * Fasting BSG of 233 mg/dL this morning * HD today 09/16: * 50 year old type 1 diabetic admitted with N/V. History of gastroparesis, ESRD. Known to glycemic services from recent admissions * BSG in ED 180 this morning - patient now admitted and pending BSG this afternoon * Had RN confirm with patient that he did take his Basaglar dose this AM, plan to start regular insulin ACHS checks PLAN FOR INPATIENT GLYCEMIC CONTROL: * Basal insulin * Lantus 10 units daily * Bolus insulin * NovoLog per scale ACHS or Q6hrs while NPO * Goal Range: Low 110 mg/dL - High 140 mg/dL * Correction Factor: 40 mg/dL/unit * Nutritional / Prandial insulin per carb ratio of 1 unit per 12 grams CHO consumed PLAN FOR DISCHARGE: * tbd
[2020-09-17 11:51] LABS: Hepatitis B Surface Ab Quant 108.93 mIU/mL (>or=10mIU/mL Immune); Hepatitis B Surface Antibody Immune
[2020-09-17 12:01] LABS: Hepatitis B Surf Ag Rflx Conf Neg (Neg)
[2020-09-17] MEDS: HEPARIN SOD (PORCINE) 1000 UNIT/ML IV SCH (12:44)
[2020-09-17] MEDS: carvediloL 25 MG TAB PO SCH ×2 (14:25→21:54)
[2020-09-17] MEDS: QUEtiapine FUMARATE 25 MG TABLET PO SCH (14:25)
[2020-09-17] MEDS: MULTIVITAMIN CHEWABLE TAB PO SCH (14:26)
[2020-09-17] MEDS: LOSARTAN POTASSIUM 50 MG TAB PO SCH (14:27)
[2020-09-17] MEDS: THIAMINE HCL 100 MG TAB PO SCH (14:27)
[2020-09-17] MEDS: SERTRALINE HCL 100 MG TABLET PO SCH (14:27)
--- NOTE | 2020-09-17 16:52 | Nephrology Consultation ---
Date of Consultation September 17, 2020 Assessment & Plan (1) ESRD (end stage renal disease): cont MWF HD per routine; w/ labile bp and often tolerates only minimal fluid removal at HD -for HD today; next HD tentativley on 09/19 or as clinical needs dictate Present on Admission?: Yes (2) HTN (hypertension): labile BP and often high with marked orthostatic sx; attributed to autonomic dysfunction from longstanding dm -cont OP meds, changed to IV where necesssary d/t inability to take po Present on Admission?: Yes (3) Intractable vomiting with nausea: per primary service and GI Present on Admission?: Yes History of Present Illness Reason for Consultation: ESRD on dialysis Requesting Physician: Dr Greenberg Attending Physician: Maninder Greenberg, DO History of Present Illness 50 y/o M w/ ESRD on MWF HD whom I'm asked to see for dialysis needs was admitted yesterday w/ uncontrolled N/V. Other PMH includes DM 1 w/ esophagitis and severe gastroparesis, labile HTN, HL. He is compliant w/ HD txs, w/ last tx on 09/14. he was treated w/ emycin w/ QT monitoring, scheduled compazine and zofran; w/ reglan vs. amend planned if needed. GI c/s placed. diet advanced today to clear liquids. Today GI sx much improved. He had been started in D5W but this was stopped. Allergies Allergy/AdvReac Type Severity Reaction Status Date / Time shellfish derived Allergy Severe anaphylaxis Verified 09/16/20 07:17 codeine Allergy Intermediate Hives Verified 09/16/20 07:17 promethazine Allergy Intermediate itchy/hives Verified 09/16/20 07:17 Home Medications Medication Instructions Recorded Confirmed Type bupropion HCl 100 mg tablet,12 hr 100 mg PO QAM ea 04/14/19 09/16/20 History sustained-release lorazepam 0.5 mg tablet 0.5 mg PO Q12 PRN tab 07/25/19 09/16/20 History Contour Next Test Strips #300 ea NS 10/26/19 08/21/20 Rx pen needle, diabetic 32 gauge x #500 ea 01/25/20 09/05/20 Rx 5/32" insulin aspart U-100 [Novolog 1 unit SUBCUT UD PRN 02/01/20 09/16/20 History Flexpen U-100 Insulin] metoclopramide HCl 5 mg tablet 5 mg PO BIDM tab 06/13/20 09/16/20 History sertraline 100 mg tablet 100 mg PO QAM #90 tab 06/21/20 09/16/20 Rx pantoprazole 40 mg PO BID 07/09/20 09/16/20 History prochlorperazine maleate 5 mg 5 mg PO Q6H PRN #30 tab 07/12/20 09/16/20 Rx tablet carvedilol 25 mg tablet 25 mg PO BID tab 08/21/20 09/16/20 History sucroferric oxyhydroxide 500 mg 500 mg PO AC tab 08/21/20 09/16/20 History chewable tablet amlodipine 5 mg tablet 5 mg PO DAILY 09/05/20 09/16/20 History atorvastatin 10 mg tablet 10 mg PO DAILY 09/05/20 09/16/20 History famotidine 20 mg tablet 20 mg PO 3XWK 09/05/20 09/16/20 History insulin glargine 100 unit/mL (3 10 unit SUBCUT QAM ml 09/05/20 09/16/20 History mL) subcutaneous pen losartan 100 mg tablet 100 mg PO DAILY 09/05/20 09/16/20 History melatonin 3 mg tablet 3 mg PO DAILY tab 09/05/20 09/16/20 History quetiapine 25 mg tablet 12.5 mg PO DAILY tab 09/05/20 09/16/20 History Patient History Medical History Anemia of chronic disease Anxiety AV fistula left arm CAD (coronary artery disease) mild, non-obstructive CAD per 10/2018 cardiac cath> [facility] Depression Depression Diabetic neuropathy Diabetic retinopathy Dialysis patient DKA (diabetic ketoacidoses) DKA (diabetic ketoacidoses) Esophagitis ESRD (end stage renal disease) M,W,F (Follows with Dr. Taylor Higgins; [facility]) ESRD on dialysis Gastroparesis GERD (gastroesophageal reflux disease) Headache Hematemesis Hypertension Hypertensive urgency Kidney stones Lumbar compression fracture Lumbar radiculopathy Peripheral neuropathy Retinopathy due to secondary diabetes Severe protein-calorie malnutrition Vomiting Surgical History H/O shoulder surgery RIGHT History of appendectomy History of cardiac cath 10/2018= no stents, no obstructive disease (at [facility]) History of cataract surgery History of esophagogastroduodenoscopy (EGD) History of hip surgery left HIP ARTHROSCOPY History of lithotripsy History of open reduction and internal fixation (ORIF) procedure right hip Nausea and vomiting after administration of anesthetic agent Permanent central venous catheter in place Permacath and since has been removed Family History Grandfather Myocardial infarction Grandfather (Maternal) Family history of diabetes mellitus Uncle Myocardial infarction Denies family history of Colon cancer Ovarian cancer Prostate cancer Breast cancer Social History Smoking Status: Never smoker Second Hand Exposure: No; Hx Alcohol Use: No Hx Substance Use: No Preferred Language: Maori Communication Ability: Effective Visual Impairment: No Limitations Hearing Ability: Normal Computing Systems Mechanic Required: No Beliefs That Will Affect Care: None marital status: Current Living Situation: Parent current occupational status: disabled How many Children do You have: 2 Other Information That Helps Us Care for You: No Feels Safe at Home: Yes Safety Concerns: Feels Safe At This Time Childhood Exposure to Second-Hand Smoke: Yes Dental Care, Regularly: No Physical Activity Frequency: 1-2 Times per Week Seatbelt Use: always Sunscreen Use: No Assistive Devices: None Review of Systems Review of Systems: All systems reviewed & are unremarkable except as noted in Subjective Physical Exam Constitutional: well developed, + cachectic and cooperative; no acute distress Eyes: EOM intact bilaterally ENMT: Ears: no external ear abnormality Nose: no external nose abnormality Mouth: + dry oral mucous membranes Neck: no nuchal rigidity Respiratory: normal respiratory effort Auscultation: lungs clear to auscultation bilaterally and + diminished lung sounds Cardiovascular: RRR, no murmur, no edema Extremities: + AV fistula (LUE + t/b) Gastrointestinal (Abdomen): Inspection/Auscultation: normal bowel sounds and + scaphoid Percussion/Palpation: abdomen soft; abdomen nontender Musculoskeletal: Extremities: strength 5/5 throughout Skin: no rashes, warm and dry Neurologic: spicer, fluent speech, no tremor Psychiatric: A+Ox3, euthymic affect Insight: good insight Judgement: good judgement Results & Data ([facility]) Vital Signs (Past 12 Hours) Vital Signs Temp Pulse Pulse Pulse Pulse Resp BP 09/17/20 15:30 73 09/17/20 14:41 36.8 C 71 18 09/17/20 13:45 36.4 C L 72 72 200/89 H 09/17/20 13:40 72 208/86 H 09/17/20 13:20 70 176/76 H 09/17/20 13:12 79 09/17/20 13:00 70 147/74 H 09/17/20 12:40 74 168/70 H 09/17/20 12:20 70 187/72 H 09/17/20 12:00 69 168/66 H 09/17/20 11:40 68 172/69 H 09/17/20 11:20 69 154/67 H 09/17/20 11:00 68 177/81 H 09/17/20 10:40 68 153/76 H 09/17/20 10:20 67 139/72 09/17/20 10:00 65 157/73 H 09/17/20 09:45 36.6 C 68 68 120/66 09/17/20 08:00 67 09/17/20 07:53 36.7 C 69 16 BP Pulse Ox 09/17/20 15:30 09/17/20 14:41 180/71 H 97 09/17/20 13:45 200/89 H 09/17/20 13:40 09/17/20 13:20 09/17/20 13:12 09/17/20 13:00 09/17/20 12:40 09/17/20 12:20 09/17/20 12:00 09/17/20 11:40 09/17/20 11:20 09/17/20 11:00 09/17/20 10:40 09/17/20 10:20 09/17/20 10:00 09/17/20 09:45 09/17/20 08:00 09/17/20 07:53 160/60 H 96 Laboratory Results 09/17/20 06:03 09/17/20 06:03 (1) HTN (hypertension) Hypertension type: unspecified Qualified Code(s): I10 - Essential (primary) hypertension
--- NOTE | 2020-09-17 16:54 | Dialysis Progress Note ---
Date of Service September 17, 2020 Assessment & Plan (1) ESRD (end stage renal disease): cont MWF HD per routine; w/ labile bp and often tolerates only minimal fluid removal at HD -for HD today--tolerated only 1L fluid removal, typical for him; next HD tentativley on 09/19 or as clinical needs dictate (2) HTN (hypertension): labile BP and often high with marked orthostatic sx; attributed to autonomic dysfunction from longstanding dm -cont OP meds, changed to IV where necesssary d/t inability to take po (3) Intractable vomiting with nausea: per primary service and GI Admission and Anticipated Discharge Date Admission Date: September 16, 2020 Subjective seen on HD at about 1300; feels improved GI sx; no sob, no uncontrolled pain Review of Systems Review of Systems: All systems reviewed & are unremarkable except as noted in Subjective Physical Exam Constitutional: well developed, + cachectic and cooperative; no acute distress Eyes: EOM intact bilaterally ENMT: Ears: no external ear abnormality Nose: no external nose abnormality Mouth: + dry oral mucous membranes Neck: no nuchal rigidity Respiratory: normal respiratory effort Auscultation: lungs clear to auscultation bilaterally and + diminished lung sounds Cardiovascular: RRR, no murmur, no edema Extremities: + AV fistula (LUE + t/b) Gastrointestinal (Abdomen): Inspection/Auscultation: normal bowel sounds and + scaphoid Percussion/Palpation: abdomen soft; abdomen nontender Musculoskeletal: Extremities: strength 5/5 throughout Skin: no rashes, warm and dry Psychiatric: A+Ox3, euthymic affect Insight: good insight Judgement: good judgement Results & Data ([facility]) Vital Signs (Past 12 Hours) Vital Signs Temp Pulse Pulse Pulse Pulse Resp BP 09/17/20 15:30 73 09/17/20 14:41 36.8 C 71 18 09/17/20 13:45 36.4 C L 72 72 200/89 H 09/17/20 13:40 72 208/86 H 09/17/20 13:20 70 176/76 H 09/17/20 13:12 79 09/17/20 13:00 70 147/74 H 09/17/20 12:40 74 168/70 H 09/17/20 12:20 70 187/72 H 09/17/20 12:00 69 168/66 H 09/17/20 11:40 68 172/69 H 09/17/20 11:20 69 154/67 H 09/17/20 11:00 68 177/81 H 09/17/20 10:40 68 153/76 H 09/17/20 10:20 67 139/72 09/17/20 10:00 65 157/73 H 09/17/20 09:45 36.6 C 68 68 120/66 09/17/20 08:00 67 09/17/20 07:53 36.7 C 69 16 BP Pulse Ox 09/17/20 15:30 09/17/20 14:41 180/71 H 97 09/17/20 13:45 200/89 H 09/17/20 13:40 09/17/20 13:20 09/17/20 13:12 09/17/20 13:00 09/17/20 12:40 09/17/20 12:20 09/17/20 12:00 09/17/20 11:40 09/17/20 11:20 09/17/20 11:00 09/17/20 10:40 09/17/20 10:20 09/17/20 10:00 09/17/20 09:45 09/17/20 08:00 09/17/20 07:53 160/60 H 96 (1) HTN (hypertension) Hypertension type: unspecified Qualified Code(s): I10 - Essential (primary) hypertension
[2020-09-17] MEDS ORDERED: hydrALAZINE HCL 20 MG/ML VIAL IV PRN (19:27)
--- NOTE | 2020-09-17 19:31 | Hospitalist Progress Note ---
Date of Service September 17, 2020 Assessment & Plan (1) Intractable vomiting with nausea: Most likely secondary to diabetic gastroparesis. Patient was started on erythromycin as a motility agent Was seen by gastroenterology and they will follow through with EGD on 09/27/2020 as an outpatient Patient reports no further vomiting since midnight last night Continue supportive care Advance diet as tolerated (2) Diabetic gastroparesis: Chronic finding and followed by gastroenterology Will start metoclopramide (Reglan) per recommendation of gastroenterology Will need to educate patient on tardive dyskinesia and need to stop medications if he notices any ratcheting or cogwheeling. Follow-up with gastroenterology for EGD next week Further management per GI (3) ESRD (end stage renal disease): Patient with chronic hemodialysis with Dr. Higgins of the [facility] group Continue management per nephrology and outpatient (4) Hypertension: Continue usual home meds Hydralazine 5 mg IV ordered for his SBP greater than 180 Continue usual meds on discharge (5) CAD (coronary artery disease): No chest pain or tightness Continue carvedilol, losartan Amlodipine was held on admission. Restart this on discharge (6) DVT prophylaxis: Heparin 5000 units SQ every 8 hours Admission and Anticipated Discharge Date Admission Date: September 16, 2020 Subjective Attending: Dr. Greenberg Patient seen and examined at bedside. He is post hemodialysis today. He states he is having no further nausea or vomiting since midnight last night. No abdominal pain. Denies fever or chills. Tolerating liquid diet. Review of Systems Review of Systems: All systems reviewed & are unremarkable except as noted in Subjective Physical Exam Physical Exam: GENERAL : No acute distress EYES: No icterus, gaze conjugate NOSE: No evidence of epistaxis MOUTH: No lesions or candidiasis NECK: Supple LUNGS: CTA B/L, no wheezes, rales or rhonchi HEART: Regular, rate controlled ABDOMEN: Soft, NT, ND, BS Present EXTREMITIES: No LE edema, pedal pulses intact NEURO: A&OX3 Results & Data Results & Data ([facility]) Vital Signs (Past 12 Hours) Vital Signs Temp Pulse Pulse Pulse Pulse Resp BP 09/17/20 15:30 73 09/17/20 14:41 36.8 C 71 18 09/17/20 13:45 36.4 C L 72 72 200/89 H 09/17/20 13:40 72 208/86 H 09/17/20 13:20 70 176/76 H 09/17/20 13:12 79 09/17/20 13:00 70 147/74 H 09/17/20 12:40 74 168/70 H 09/17/20 12:20 70 187/72 H 09/17/20 12:00 69 168/66 H 09/17/20 11:40 68 172/69 H 09/17/20 11:20 69 154/67 H 09/17/20 11:00 68 177/81 H 09/17/20 10:40 68 153/76 H 09/17/20 10:20 67 139/72 09/17/20 10:00 65 157/73 H 09/17/20 09:45 36.6 C 68 68 120/66 09/17/20 08:00 67 09/17/20 07:53 36.7 C 69 16 BP Pulse Ox 09/17/20 15:30 09/17/20 14:41 180/71 H 97 09/17/20 13:45 200/89 H 09/17/20 13:40 09/17/20 13:20 09/17/20 13:12 09/17/20 13:00 09/17/20 12:40 09/17/20 12:20 09/17/20 12:00 09/17/20 11:40 09/17/20 11:20 09/17/20 11:00 09/17/20 10:40 09/17/20 10:20 09/17/20 10:00 09/17/20 09:45 09/17/20 08:00 09/17/20 07:53 160/60 H 96 Laboratory Results 09/17/20 06:03 09/17/20 06:03 Diagnostic Findings KUB CLINICAL HISTORY: nausea/vomiting, gastroparesis COMPARISON STUDY: CT of the abdomen and pelvis June 16, 2020. FINDINGS: Right femoral internal fixation hardware is partially imaged. Electronic device projects of the right abdomen. The bowel gas pattern is normal. Amount of stool within the colon and rectum is within normal limits. Moderate vascular calcification is present. Pelvic calcifications reflect phleboliths. 6 mm right renal calculus is noted. This was shown on prior CT. Postoperative findings from appendectomy are noted. IMPRESSION: 1. No evidence for a bowel obstruction. 2. Right nephrolithiasis. No ureteral calculi. ACT 112: Negative or not required by law. Electronically signed by: Gabino Cool M.D. 09/16/2020 10:58 AM PG Care Time/CCT Total # of Minutes Spent Total Time Spent with Patient: Total time spent is greater than 50% in coordination of care (as documented) at patient's floor/unit and/or counseling patient: Coding Level of Care Code 31205 Subseq Hosp Care Lvl 2 Diagnoses Intractable vomiting with nausea R11.2 Diabetic gastroparesis E11.43; K31.84 ESRD (end stage renal disease) N18.6 Hypertension I10 Hypertension type: unspecified CAD (coronary artery disease) I25.10 Coronary Disease-Associated Artery/Lesion type: [place] artery [place] vs. transplanted heart: [place] heart Associated angina: without angina DVT prophylaxis Z29.9 (1) Hypertension Hypertension type: unspecified Qualified Code(s): I10 - Essential (primary) hypertension (2) CAD (coronary artery disease) Coronary Disease-Associated Artery/Lesion type: [place] artery [place] vs. transplanted heart: [place] heart Associated angina: without angina Qualified Code(s): I25.10 - Atherosclerotic heart disease of [place] coronary artery without angina pectoris
[2020-09-17] MEDS: SODIUM CHLORIDE 0.9% 1000ML 1,000 ML IV SCH (23:55)
--- NOTE | 2020-09-18 05:21 | Electrocardiogram Report ---
Test Reason : Blood Pressure : / mmHG Vent. Rate : 088 BPM Atrial Rate : 088 BPM P-R Int : 200 ms QRS Dur : 088 ms QT Int : 410 ms P-R-T Axes : 071 -51 083 degrees QTc Int : 496 ms Normal sinus rhythm Possible Left atrial enlargement Left anterior fascicular block T wave abnormality, consider anterior ischemia Prolonged QT Abnormal ECG When compared with ECG of 14-SEP-2020 13:35, T wave inversion more evident in Anterior leads Confirmed by Travon Ayala ([id number]) on 09/18/2020 5:20:58 AM Referred By: REFERRED SELF Confirmed By:Travon Ayala
[2020-09-18 06:09] LABS: Basophils # (auto) 0.04 K/uL (0-0.2); Basophils % (auto) 0.5 %; Eosinophils # (auto) 0.12 K/uL (0-0.5); Eosinophils % (auto) 1.4 %; Hematocrit (blood only) 35.3 % (42-52); Hemoglobin 11.5 g/dL (14.0-18.0); Immature Granulocytes # (auto) 0.03 K/uL (0.00-0.02); Immature Granulocytes % (auto) 0.4 %; Lymphocytes # (auto) 1.65 K/uL (1.2-3.4); Lymphocytes % (auto) 19.9 %; Mean Corpuscular Hemoglobin 33.4 pg (25-34); Mean Corpuscular Hgb Conc 32.6 g/dL (32-36); Mean Corpuscular Volume 102.6 fL (80-100); Mean Platelet Volume 8.6 fL (7.4-10.4); Monocytes # (auto) 0.94 K/uL (0.11-0.59); Monocytes % (auto) 11.3 %; Neutrophils # (auto) 5.51 K/uL (1.4-6.5); Neutrophils % (auto) 66.5 %; Platelet Count 338 K/uL (130-400); RDW Coefficient of Variation 13.4 % (11.5-14.5); RDW Standard Deviation 50.6 fL (36.4-46.3); Red Blood Count 3.44 M/uL (4.7-6.1); White Blood Count 8.29 K/uL (4.8-10.8)
[2020-09-18] MEDS: HEPARIN SOD 5,000 UNIT/0.5 ML VIAL SQ SCH ×2 (06:31→12:08)
[2020-09-18] MEDS: ONDANSETRON INJ 2 MG/ML 2 ML VIAL IV SCH ×2 (06:47→12:08)
[2020-09-18 06:56] LABS: BUN Creatinine Ratio 5.7 (10-20); Calcium 7.5 mg/dl (8.5-10.1); Creatinine Clr Calc Pharmacy 14.4 ml/min; Est GFR (African American) 13.8; Est GFR (Non-African American) 11.9; Magnesium 2.3 mg/dl (1.8-2.4)
[2020-09-18] MEDS: INSULIN GLARGINE SOLOSTAR 100 UNITS/ML 3 ML PEN SQ SCH (09:22)
[2020-09-18] MEDS: INSULIN HUMAN REGULAR SC SCH ×3 (09:23→17:31)
[2020-09-18] MEDS: carvediloL 25 MG TAB PO SCH (09:24)
[2020-09-18] MEDS: THIAMINE HCL 100 MG TAB PO SCH (09:24)
[2020-09-18] MEDS: LOSARTAN POTASSIUM 50 MG TAB PO SCH (09:24)
[2020-09-18] MEDS: QUEtiapine FUMARATE 25 MG TABLET PO SCH (09:24)
[2020-09-18] MEDS: SERTRALINE HCL 100 MG TABLET PO SCH (09:24)
[2020-09-18] MEDS: MULTIVITAMIN CHEWABLE TAB PO SCH (09:24)
[2020-09-18] MEDS: SODIUM CHLORIDE 0.9% 1000ML 1,000 ML IV SCH (12:14)
--- NOTE | 2020-09-18 18:22 | Discharge Summary ---
Date of Service GENERAL : No acute distress EYES: No icterus, gaze conjugate NOSE: No evidence of epistaxis MOUTH: No lesions or candidiasis NECK: Supple LUNGS: CTA B/L, no wheezes, rales or rhonchi HEART: Regular, rate controlled ABDOMEN: Soft, NT, ND, BS Present EXTREMITIES: No LE edema, pedal pulses intact NEURO: [id number] 2020 Admission HPI Per Admitting Provider 50 YOM with history of, ORIF right femur, DM gastroparesis, CAD, diabetic neuropathy, esophagitis, ESRD dialysis dependant, malnutrition. Patient with nonobstructive gastroparesis with CT scan and BOTX injections in the past. he has been admitted to the hospital in July for similar presentation as today as well as EM visit at the end of last week for intractable nausea, vomiting, unable to keep his medications down, or maintain nutritional/fluid intake at home. He comes in today for continued nausea and vomiting and did not notice any significant relief of symptoms through the week. He has been having mostly dry heaves per the dad. [facility], Com pazine, Tylenol, Benadryl. Upon my evaluation the patient is sleeping and not really assisting with questioning, however he did repeat back to me what information I was talking to with his dad. His father reports that for the past 2 weeks his symptoms have gotten worse and his nutrition at home has declined especially over the past week. He is not able to keep majority of his medications down, gets full quickly even after a few bites, and oral intake of fluid has not been much. Patient's lab consistent with hemoconcentration as well. Will admit patient to PCU telemetry convert medications to IV that can be for BP control as well as monitoring of his QT level. Attempt addition prokinet ic agent and symptom management as well as IV re-hydration until able to tolerate PO. Admission Exam Per Admitting Provider PHYSICAL EXAM: General: Drowsy, alert, no apparent distress Head: Normocephalic, atraumatic ENT: PERRL, EOMI, no pharyngeal exudate, mucous membranes dry Neuro: AAO x 3, speech clear and appropriate, Drowsy but aware of conversations and answers appropriately, strength intact bilaterally 5/5, sensation intact and equal all extremities and dermatomes, no pronator drift Chest: equal rise and fall of the chest, no accessory muscle use, no heaves or thrills, Clear to auscultation, on room air, Cardiac: Regular rate and rhythm, telemetry reviewed, skin warm dry, cap refill <3 seconds, peripheral pulses +2 no JVD, no murmur, no edema GI: NABS x 4 quadrants, soft, nontender to palpation, no rebound, guarding or tenderness : Spontaneously voiding, no pain, no CVA tenderness, Extremities: Normal inspection, no peripheral edema or erythema, calfs nontender to palpation, malnourished BMI 15 Psych: Normal mood and affect Skin: no rash or erythema Principal Diagnosis Intractable nausea and vomiting secondary to diabetic gastric paresis Discharge Exam GENERAL : No acute distress EYES: No icterus, gaze conjugate NOSE: No evidence of epistaxis MOUTH: No lesions or candidiasis NECK: Supple LUNGS: CTA B/L, no wheezes, rales or rhonchi HEART: Regular, rate controlled ABDOMEN: Soft, NT, ND, BS Present EXTREMITIES: No LE edema, pedal pulses intact NEURO: A&OX3 Discharge Data Allergies Allergy/AdvReac Type Severity Reaction Status Date / Time shellfish derived Allergy Severe anaphylaxis Verified 09/16/20 07:17 codeine Allergy Intermediate Hives Verified 09/16/20 07:17 promethazine Allergy Intermediate itchy/hives Verified 09/16/20 07:17 Consultations 09/16/20 09:46 ED Decision to Admit Stat 09/16/20 13:30 Consult Gastroenterology Routine Consult Nephrology Routine Ordered Studies 09/18/20 05:35 09/18/20 05:35 Height: 5ft 9in Weight: 59.9kg BSA: 1.71m BMI: 19.5kg/m Hospital Course (1) Intractable vomiting with nausea: Most likely secondary to diabetic gastroparesis. Patient was started on erythromycin as a motility agent this was discontinued prior to discharge Was seen by gastroenterology and they will follow through with EGD on 09/27/2020 as an outpatient Patient reports no further vomiting Tolerated regular diet Discharge home with outpatient management (2) Diabetic gastroparesis: Chronic finding and followed by gastroenterology Metoclopramide (Reglan) per recommendation of gastroenterology Will need to educate patient on tardive dyskinesia and need to stop medications if he notices any ratcheting or cogwheeling. Follow-up with gastroenterology for EGD next week Further management per GI as an outpatient (3) ESRD (end stage renal disease): Patient with chronic hemodialysis with Dr. Higgins of the [facility] group Continue management per nephrology and outpatient (4) Hypertension: Continue usual home meds Hydralazine 5 mg IV ordered inpatient prn for his SBP greater than 180 Continue usual meds on discharge (5) CAD (coronary artery disease): No chest pain or tightness Continue carvedilol, losartan Amlodipine was held on admission. Restart this on discharge (6) DVT prophylaxis: Heparin 5000 units SQ every 8 hours while inpatient Total Time Total Time Spent Total Time Spent (In Minutes): 25 Discharge Plan Discharge Items Patient Disposition: Home - Self-Care Reason For Visit: NAUSEA,VOMITING Discharge Diagnosis: Intractable nausea vomiting End-stage renal disease Diabetic gastroparesis Activity: Resume your previous activity Lifting: Gradually increase as tolerated Bathing: No limitations Sexual Activity: When tolerated Exercise/Sports: Gradually increase as tolerated Non-emergency contact: Primary Care Provider and Machine Installer Call non-emergency contact if: you have any medication questions, your symptoms worsen and you have a fever Follow-up/Referrals: Abbi Ames MD [Primary Care Provider] - Diet: Dialysis Renal and Heart Healthy Addtl Attending Provider Instructions: You were admitted with intractable nausea and vomiting. You received IV fluids. Gastroenterology was consulted and you are scheduled to follow-up with them as an outpatient. Continue take your outpatient medications including clopamide (Reglan). Should you begin having any kind of tremors or muscular contractions (tardive dyskinesia) discontinue Reglan and call your wastewater treatment operator your family doctor. You should keep all of your outpatient appointments including dialysis. Pending Studies at Discharge: No Stand-Alone Forms: My [id number] Medications and DC Order Prescriptions: Continued bupropion HCl 100 mg tablet sustained-release 12 hr 100 mg PO QAM RF: 0 (DME) Contour Next Test Strips Strip See Dose Instructions .ROUTE .MEDSUPPLY Qty: 300 RF: 3 (DME) pen needle, diabetic [BD Ultra-Fine Annalise Pen Needle] 32 gauge x 5/32" needle See Rx Instructions .ROUTE .MEDSUPPLY Qty: 500 RF: 3 sertraline 100 mg tablet 100 mg PO QAM Qty: 90 RF: 0 prochlorperazine maleate 5 mg tablet 5 mg PO Q6H PRN (Reason: nausea and vomiting) Qty: 30 RF: 0 carvedilol 25 mg tablet 25 mg PO BID RF: 0 Basaglar KwikPen U-100 Insulin 100 unit/mL (3 mL) insulin pen 10 unit SUBCUT QAM RF: 0 metoclopramide HCl 5 mg tablet 5 mg PO BIDM RF: 0 lorazepam 0.5 mg tablet 0.5 mg PO Q12 PRN (Reason: Anxiety) RF: 0 melatonin 3 mg tablet 3 mg PO DAILY RF: 0 famotidine 20 mg tablet 20 mg PO 3XWK RF: 0 amlodipine 5 mg tablet 5 mg PO DAILY RF: 0 losartan 100 mg tablet 100 mg PO DAILY RF: 0 atorvastatin 10 mg tablet 10 mg PO DAILY RF: 0 quetiapine [Seroquel] 25 mg tablet 12.5 mg PO DAILY RF: 0 insulin aspart U-100 [Novolog Flexpen U-100 Insulin] 100 unit/mL (3 mL) insulin pen 1 unit SUBCUT UD PRN (Reason: sliding scale) RF: 0 Velphoro 500 mg tablet,chewable 500 mg PO AC RF: 0 pantoprazole 40 mg tablet,delayed release (DR/EC) 40 mg PO BID RF: 0 Discharge Orders: Discharge Order (Routine); Ordered 09/18/20 Ordered By: Dev Negrete Admission Data Admit Date/Time: 09/16/20 12:18 Attending Provider: Maninder Greenberg Admit Provider: Dionicio Haro Primary Care Provider: Abbi Ames V. Other Providers: Edgardo Crooks ; Dionicio Haro ; Tim Browne ; Abelino Cook Coding Level of Care Code D/C Day Management <30 mins Diagnoses Intractable vomiting with nausea R11.2 Diabetic gastroparesis E11.43; K31.84 ESRD (end stage renal disease) N18.6 Hypertension I10 Hypertension type: unspecified CAD (coronary artery disease) I25.10 Coronary Disease-Associated Artery/Lesion type: [place] artery [place] vs. transplanted heart: [place] heart Associated angina: without angina DVT prophylaxis Z29.9 Time Spent (min) 25
== END 2020-09-18 19:31 | disposition home or self-care (01) | DRG 391 ==
LOC: ED 06:19 → 2S 12:18 → SUATTDRO 12:18 → 2S 13:14 → 2W 09-18 07:50

== ENCOUNTER 2020-12-26 09:25 | Inpatient (IN) ==
[2020-12-26] MEDS ORDERED: ONDANSETRON INJ 2 MG/ML 2 ML VIAL IV STA ×2 (10:10→12:28)
[2020-12-26] MEDS ORDERED: SODIUM CHLORIDE 0.9% 1000ML 1,000 ML IV STA (10:10)
[2020-12-26] MEDS ORDERED: HALOPERIDOL LACTATE 5 MG/ML 1 ML VIAL IV STA (10:10)
--- NOTE | 2020-12-26 10:43 | Emergency Department Note ---
Impression & Plan Gastroparesis, Cyclic vomiting syndrome ED Provider Note NAME: JERARDO PEREZ AGE: 50 SEX: M : 1970 ARRIVES VIA: Ambulance INFORMANT: Patient, ED PROVIDER(S): Jerardo Mae DO CHIEF COMPLAINT: Vomiting HPI: The patient is a 50-year-old male who presented to the emergency department for an evaluation of nausea and vomiting. The patient has a history of cyclic vomiting as well as gastroparesis. He states that this feels similar to his previous episodes in the past. He was receiving dialysis today. The patient s tates that he started having symptoms after the dialysis which is typical for his previous episodes. He denies having any chest pain. He does complain of some shortness of breath. He had multiple episodes of emesis. He notices no hematemesis. He is noticed no black or bloody bowel movements. He does not have any abdominal pain. The patient was sent directly to the emergency department. He was given Benadryl prior to arrival. He was not able to take his morning medications. ROS: See above HPI for pertinent positives & negatives. A total of 10 systems reviewed and were otherwise negative. PAST MEDICAL HISTORY: See Below PAST SURGICAL HISTORY: See Below FAMILY HISTORY: See Below SOCIAL HISTORY: See Below HOME MEDICATIONS: See Below ALLERGIES: See Below VITALS: See Below PHYSICAL EXAMINATION: GENERAL: The patient is awake and alert. He is very anxious appearing. He is actively retching into an emesis bag. There was no hematemesis noted in the bag. EYES: The conjunctivae are clear. The pupils are round and reactive. EARS, NOSE, MOUTH AND THROAT: The nose is without any evidence of any deformity. Mucous membranes are dry. NECK: The neck is nontender and supple. RESPIRATORY: Normal respiratory effort is noted there is no evidence of wheezing rhonchi or rales CARDIOVASCULAR: Regular rate and rhythm noted there no murmurs rubs or gallops normal S1 normal S2. GASTROINTESTINAL: The abdomen is soft. Abdomen is nontender. MUSCULOSKELETAL/EXTREMITIES: There is no evidence of gross deformity full range of motion is noted in the hips and shoulders. SKIN: There is no obvious evidence of any rash. There are no petechiae, pallor or cyanosis noted. NEUROLOGIC: Patient is awake alert and oriented x3. MEDICAL DECISION MAKING: The patient is a 50-year-old male who has a history of end-stage renal disease who presented to the emergency department for an evaluation of vomiting. The patient has a history of cyclic vomiting as well as gastroparesis. The patient was treated with Haldol and Zofran in the emergency department. He was treated with a fluid bolus. He was also found a very elevated blood pressure. He had a full run of dialysis so he was given hydralazine to manage his blood pressure. I discussed the patient's laboratory and radiographic studies with him. He was resting much more comfortably on reevaluation but is family member was concerned that he may require inpatient management because he has had prolonged courses with cyclic vomiting in the past. For this reason I discussed his case with the on-call [facility] hospitalist. They have agreed to evaluate the patient in the emergency department for further management and disposition. Triage Nursing notes reviewed. Prior medical records reviewed Vital Signs: reviewed and remarkable for elevated blood pressure. Differential diagnosis: Gastroenteritis, food borne illness, infections, appendicitis, diverticulitis, inflammatory bowel disease, obstruction, GI bleed, biliary pathology, volvulus, as well as other pathologies. ER treatment provided: See below Diagnostics interpreted by me: ECG: EKG was obtained in the emergency department. My interpretation is normal sinus rhythm at 95 bpm. There is no ectopy. Diffuse ST segment abnormalities were noted. This was compared to a tracing from September 162020. Resolution of the previously noted anterior T wave versions otherwise no significant changes were noted. Cardiac Monitoring: An order was placed for continuous cardiac monitoring. The monitor shows a rate of 98 bpm with sinus rhythm. Laboratory studies: As stated above and show below. Imaging studies: See below Consultation(s): 1520: I discussed this case with Dr. Gutierrez [facility] will [facility] the patient in the emergency department. Past Med/Surg History Medical History Anemia Anemia of chronic disease Anxiety AV fistula left arm CAD (coronary artery disease) mild, non-obstructive CAD per 10/2018 cardiac cath> [facility] Depression Diabetic retinopathy Dialysis patient DKA (diabetic ketoacidoses) Esophagitis ESRD (end stage renal disease) M,W,F (Follows with Dr. Taylor Higgins; [facility]/[place]) Gastroparesis GERD (gastroesophageal reflux disease) Hematemesis Hypertension Intractable vomiting with nausea Kidney stones Lumbar compression fracture Lumbar radiculopathy Peripheral neuropathy Retinopathy due to secondary diabetes Severe protein-calorie malnutrition Vomiting Surgical History H/O shoulder surgery RIGHT History of appendectomy History of cardiac cath 10/2018= no stents, no obstructive disease (at [facility]) History of cataract surgery History of esophagogastroduodenoscopy (EGD) (~03/08/20) History of hip surgery left HIP ARTHROSCOPY History of lithotripsy History of open reduction and internal fixation (ORIF) procedure right hip Nausea and vomiting after administration of anesthetic agent Permanent central venous catheter in place Permacath has been removed S/P arteriovenous (AV) fistula creation Family History Grandfather Myocardial infarction Grandfather (Maternal) Family history of diabetes mellitus Uncle Myocardial infarction Other No family history of adverse response to anesthesia Denies family history of Colon cancer Ovarian cancer Prostate cancer Breast cancer Social History Smoking Status: Never smoker Second Hand Exposure: No; Hx Alcohol Use: No Hx Substance Use: No Preferred Language: Persian Communication Ability: Effective Visual Impairment: No Limitations Hearing Ability: Normal Tipple Worker Required: No Beliefs That Will Affect Care: None marital status: Current Living Situation: Parent current occupational status: disabled How many Children do You have: 2 Feels Safe at Home: Yes Childhood Exposure to Second-Hand Smoke: Yes Dental Care, Regularly: No Physical Activity Frequency: 1-2 Times per Week Seatbelt Use: always Sunscreen Use: No Assistive Devices: None Allergies Allergies Allergy/AdvReac Type Severity Reaction Status Date / Time shellfish derived Allergy Severe anaphylaxis Verified 12/11/20 13:28 codeine Allergy Intermediate Hives Verified 12/11/20 13:28 promethazine Allergy Intermediate itchy/hives Verified 12/11/20 13:28 Home Meds Home Medications Medication Instructions Recorded Confirmed bupropion HCl 100 mg tablet,12 hr 100 mg PO QAM ea 04/14/19 12/26/20 sustained-release lorazepam 0.5 mg tablet 0.5 mg PO Q12 PRN tab 07/25/19 12/26/20 pantoprazole 40 mg tablet,delayed 40 mg PO BID 07/09/20 12/26/20 release melatonin 3 mg tablet 3 mg PO HS tab 09/05/20 12/26/20 acetaminophen 325 mg capsule 650 mg PO Q4H PRN cap 09/28/20 12/26/20 carvedilol 25 mg tablet 25 mg PO BIDM tab 10/01/20 12/26/20 ondansetron HCl 4 mg tablet 4 mg PO Q4H PRN 10/01/20 12/26/20 (Zofran) atorvastatin 10 mg tablet 10 mg PO DAILY 11/29/20 12/26/20 bisacodyl 10 mg rectal suppository 10 mg ID DAILY PRN 11/29/20 12/26/20 cholecalciferol (vitamin D3) 50 50 mcg PO DAILY 11/29/20 12/26/20 mcg (2,000 unit) capsule (Vitamin D3) darbepoetin jessee-albumin 60 60 mcg WK 11/29/20 12/26/20 mcg/0.3 mL in albumin injection syringe hydrocortisone 1 % topical cream 1 applic TOPICAL Q6H PRN 11/29/20 12/26/20 losartan 100 mg tablet 100 mg PO DAILY 11/29/20 12/26/20 polyethylene glycol 3350 17 17 g PO QDL PRN 11/29/20 12/26/20 gram/dose oral powder (Miralax) sodium chloride 0.9 % 1,000 ml IV DIRECTED PRN 11/29/20 12/26/20 vitamin B complex and vitamin C 1 cap PO DAILY 11/29/20 12/26/20 no.20-folic acid 1 mg capsule insulin aspart U-100 100 unit/mL 5 unit SUBCUT TIDM PRN 12/21/20 12/26/20 (3 mL) subcutaneous pen (Novolog Flexpen U-100 Insulin aspart) insulin glargine 100 unit/mL (3 12 unit SUBCUT QAM ml 12/21/20 12/26/20 mL) subcutaneous pen (Basaglar KwikPen U-100 Insulin) warfarin 5 mg tablet See Rx Instructions PO UD tab 12/24/20 12/26/20 Previous Rx's Medication Instructions Recorded amlodipine 5 mg tablet 5 mg PO DAILY #90 tab 12/07/20 sertraline 100 mg tablet 100 mg PO QAM #90 tab 12/11/20 Results & Data (ED) Vital Signs Vital Signs - 24 hr 12/26/20 09:34 12/26/20 09:38 12/26/20 09:43 Temperature 37.3 C Temperature Source Oral Pulse Rate 95 H 97 H Pulse Rate from SpO2 Sensor Pulse Rhythm Regular Respiratory Rate 8 L 21 Respiratory Effort / Characteristics Non-Labored Respiratory Depth Normal Blood Pressure 224/111 H 201/100 H Blood Pressure Mean 148 133 Pulse Oximetry 97 97 Oxygen Delivery Method Room Air Room Air Sepsis Recent Fever Within 48 Hours No Sepsis New/Unexplained Change in Mental Status No Sepsis Action Taken by Nursing No Action Required 12/26/20 10:33 12/26/20 10:40 12/26/20 10:45 Temperature Temperature Source Pulse Rate 96 H 113 H Pulse Rate from SpO2 Sensor Pulse Rhythm Respiratory Rate 14 13 Respiratory Effort / Characteristics Respiratory Depth Blood Pressure 218/91 H Blood Pressure Mean 133 Pulse Oximetry 95 Oxygen Delivery Method Room Air Sepsis Recent Fever Within 48 Hours Sepsis New/Unexplained Change in Mental Status Sepsis Action Taken by Nursing 12/26/20 11:00 12/26/20 12:00 12/26/20 12:30 Temperature Temperature Source Pulse Rate 82 87 92 H Pulse Rate from SpO2 Sensor 82 87 91 H Pulse Rhythm Respiratory Rate 21 18 18 Respiratory Effort / Characteristics Respiratory Depth Blood Pressure 208/80 H 233/98 H 193/77 H Blood Pressure Mean 122 143 115 Pulse Oximetry 87 L 97 96 Oxygen Delivery Method Sepsis Recent Fever Within 48 Hours Sepsis New/Unexplained Change in Mental Status Sepsis Action Taken by Nursing 12/26/20 13:00 12/26/20 13:30 12/26/20 14:00 Temperature Temperature Source Pulse Rate 91 H 89 96 H Pulse Rate from SpO2 Sensor 90 89 96 H Pulse Rhythm Respiratory Rate 16 2 L 20 Respiratory Effort / Characteristics Respiratory Depth Blood Pressure 201/85 H 211/85 H 184/80 H Blood Pressure Mean 123 127 114 Pulse Oximetry 95 95 94 Oxygen Delivery Method Sepsis Recent Fever Within 48 Hours Sepsis New/Unexplained Change in Mental Status Sepsis Action Taken by Nursing 12/26/20 14:30 12/26/20 15:00 12/26/20 15:30 Temperature Temperature Source Pulse Rate 93 H 67 98 H Pulse Rate from SpO2 Sensor 93 H 94 H 99 H Pulse Rhythm Respiratory Rate 14 18 17 Respiratory Effort / Characteristics Respiratory Depth Blood Pressure 186/82 H 192/85 H 193/90 H Blood Pressure Mean 116 120 124 Pulse Oximetry 95 94 95 Oxygen Delivery Method Sepsis Recent Fever Within 48 Hours Sepsis New/Unexplained Change in Mental Status Sepsis Action Taken by Nursing 12/26/20 16:30 12/26/20 17:00 Temperature Temperature Source Pulse Rate 97 H 97 H Pulse Rate from SpO2 Sensor 97 H 97 H Pulse Rhythm Respiratory Rate 14 14 Respiratory Effort / Characteristics Respiratory Depth Blood Pressure 203/93 H 203/95 H Blood Pressure Mean 129 131 Pulse Oximetry 95 94 Oxygen Delivery Method Sepsis Recent Fever Within 48 Hours Sepsis New/Unexplained Change in Mental Status Sepsis Action Taken by Group Home Medications Current Medication List: was personally reviewed by me Laboratory Data Attestation: I reviewed the patient's lab results. Result diagrams: 12/26/20 10:25 12/26/20 10:25 Lab Results 12/26/20 12/26/20 12/26/20 Range/Units 09:52 10:25 10:25 WBC 7.44 (4.8-10.8) K/uL RBC 3.72 L (4.7-6.1) M/uL Hgb 11.7 L (14.0-18.0) g/dL Hct 36.1 L (42-52) % MCV 97.0 (80-100) fL MCH 31.5 (25-34) pg MCHC 32.4 (32-36) g/dL RDW Std Deviation 52.4 H (36.4-46.3) fL RDW Coeff of Kami 14.6 H (11.5-14.5) % Plt Count 361 (130-400) K/uL MPV 8.7 (7.4-10.4) fL Immature Gran % (Auto) 0.3 % Neut % (Auto) 70.7 % Lymph % (Auto) 11.6 % Gila % (Auto) 14.2 % Eos % (Auto) 2.8 % Baso % (Auto) 0.4 % Neut # (Auto) 5.26 (1.4-6.5) K/uL Lymph # (Auto) 0.86 L (1.2-3.4) K/uL Gila # (Auto) 1.06 H (0.11-0.59) K/uL Eos # (Auto) 0.21 (0-0.5) K/uL Baso # (Auto) 0.03 (0-0.2) K/uL Immature Gran # (Auto) 0.02 (0.00-0.02) K/uL PT 31.7 H (9.0-12.0) Seconds INR 3.4 H (0.9-1.1) APTT 38.4 H (21.0-31.0) Seconds PTT Ratio 1.5 Sodium (136-145) mmol/L Potassium (3.5-5.1) mmol/L Chloride (98-107) mmol/L Carbon Dioxide (21-32) mmol/L Anion Gap (3-11) BUN (7-18) mg/dl Creatinine (0.6-1.4) mg/dl Est Cr Clr Drug Dosing ml/min Est GFR ( Amer) ml/min Est GFR (Non-Af Amer) ml/min BUN/Creatinine Ratio (10-20) Glucose (70-99) mg/dl POC Glucose 77 (70-99) mg/dl Calcium (8.5-10.1) mg/dl Total Bilirubin (0.2-1) mg/dl AST (15-37) U/L ALT (12-78) U/L Alkaline Phosphatase (45-117) U/L Troponin I (0-0.045) ng/ml Total Protein (6.4-8.2) gm/dl Albumin (3.4-5.0) gm/dl Globulin (2.5-4.0) gm/dl Albumin/Globulin Ratio (0.9-2) Lipase (73-393) U/L COVID-19 Eval Order SARS-CoV-2 (PCR) (Negative) 12/26/20 12/26/20 12/26/20 Range/Units 10:25 15:09 15:09 WBC (4.8-10.8) K/uL RBC (4.7-6.1) M/uL Hgb (14.0-18.0) g/dL Hct (42-52) % MCV (80-100) fL MCH (25-34) pg MCHC (32-36) g/dL RDW Std Deviation (36.4-46.3) fL RDW Coeff of Kami (11.5-14.5) % Plt Count (130-400) K/uL MPV (7.4-10.4) fL Immature Gran % (Auto) % Neut % (Auto) % Lymph % (Auto) % Gila % (Auto) % Eos % (Auto) % Baso % (Auto) % Neut # (Auto) (1.4-6.5) K/uL Lymph # (Auto) (1.2-3.4) K/uL Gila # (Auto) (0.11-0.59) K/uL Eos # (Auto) (0-0.5) K/uL Baso # (Auto) (0-0.2) K/uL Immature Gran # (Auto) (0.00-0.02) K/uL PT (9.0-12.0) Seconds INR (0.9-1.1) APTT (21.0-31.0) Seconds PTT Ratio Sodium 135 L (136-145) mmol/L Potassium 3.3 L (3.5-5.1) mmol/L Chloride 97 L (98-107) mmol/L Carbon Dioxide 31 (21-32) mmol/L Anion Gap 7.0 (3-11) BUN 14 (7-18) mg/dl Creatinine 2.61 H (0.6-1.4) mg/dl Est Cr Clr Drug Dosing 30.7 ml/min Est GFR ( Amer) 31.7 ml/min Est GFR (Non-Af Amer) 27.4 ml/min BUN/Creatinine Ratio 5.5 L (10-20) Glucose 87 (70-99) mg/dl POC Glucose (70-99) mg/dl Calcium 8.9 (8.5-10.1) mg/dl Total Bilirubin 0.4 (0.2-1) mg/dl AST 24 (15-37) U/L ALT 34 (12-78) U/L Alkaline Phosphatase 163 H (45-117) U/L Troponin I < 0.015 (0-0.045) ng/ml Total Protein 7.1 (6.4-8.2) gm/dl Albumin 3.2 L (3.4-5.0) gm/dl Globulin 3.9 (2.5-4.0) gm/dl Albumin/Globulin Ratio 0.8 L (0.9-2) Lipase 89 (73-393) U/L COVID-19 Eval Order Covid19 at [facility] SARS-CoV-2 (PCR) NEGATIVE (Negative) Administered Medications Discontinued Medications Haloperidol Lactate (Haloperidol Lactate 5 Mg/Ml 1 Ml Vial) 5 mg IV NOW STA Stop: 12/26/20 10:11 Last Admin: 12/26/20 10:48 Dose: 5 mg Documented by: [id number] Hydralazine HCl (Hydralazine Hcl 20 Mg/Ml Vial) 5 mg IV NOW ONE Stop: 12/26/20 12:12 Last Admin: 12/26/20 12:17 Dose: 5 mg Documented by: [id number] Hydralazine HCl (Hydralazine Hcl 20 Mg/Ml Vial) 5 mg IV NOW ONE Stop: 12/26/20 13:21 Last Admin: 12/26/20 13:52 Dose: 5 mg Documented by: [id number] Hydralazine HCl (Hydralazine Hcl 20 Mg/Ml Vial) 15 mg IV NOW STA Stop: 12/26/20 17:14 Last Admin: 12/26/20 17:19 Dose: 15 mg Documented by: [id number] Sodium Chloride (Nss 1000ml) 1,000 mls @ 999 mls/hr IV .Q1H1M STA Stop: 12/26/20 11:10 Last Infusion: 12/26/20 12:19 Dose: 0 mls/hr Documented by: [id number] Admin: 12/26/20 10:47 Dose: 999 mls/hr Documented by: [id number] Ondansetron HCl (Ondansetron Inj 2 Mg/Ml 2 Ml Vial) 4 mg IV NOW STA Stop: 12/26/20 10:11 Last Admin: 12/26/20 10:47 Dose: 4 mg Documented by: [id number] Ondansetron HCl (Ondansetron Inj 2 Mg/Ml 2 Ml Vial) 4 mg IV NOW STA Stop: 12/26/20 12:29 Last Admin: 12/26/20 12:37 Dose: 4 mg Documented by: [id number] Imaging Data Radiologist's Impression: Chest X-Ray 12/26/20 10:10 XR chest 1V portable CLINICAL HISTORY: Nausea and vomiting COMPARISON STUDY: July 2020 FINDINGS: The heart is enlarged. Is a prior study the patient developed a moderate left pleural effusion with associated left lower lobe atelectasis/consolidation. There is mild central vascular prominence.[ IMPRESSION: 1. Interval development of a moderate left pleural effusion with associated left lower lung zone atelectasis/consolidation ACT 112: Negative or not required by law. Electronically signed by: Geovanny Moncada M.D. 12/26/2020 10:44 AM KUB X-Ray 12/26/20 10:10 XR KUB/Abdomen 1 view CLINICAL HISTORY: [place] COMPARISON STUDY: September 16, 2020 FINDINGS: Nondilated gas and stool-filled loops of bowel are seen throughout the abdomen There is no evidence of free intra-abdominal air, however please note that supine abdominal radiography has limited ability for evaluation for the free intra-abdominal air. Few calcifications are seen projecting to the pelvic region likely representing phleboliths. Also small calcification is seen within right hemiabdomen, stable since prior and might represent renal calculus versus other etiology. Bilateral pleural effusion is seen, moderate to large on the left and small to moderate on the right. IMPRESSION: 1. Nonobstructive bowel gas pattern. 2. Bilateral pleural effusion. 3. Possible calculus within right collecting system. ACT 112: Negative or not required by law. The above report was generated using voice recognition software. It may contain grammatical, syntax or spelling errors. Electronically signed by: Cristina Wong DO 12/26/2020 10:49 AM Discharge Plan Visit Data Chief Complaint: Vomiting Stated Complaint: Nausea/vomiting ED Provider: Jerardo Mae Discharge Problem: Gastroparesis, Cyclic vomiting syndrome Patient Disposition: Home - Self-Care Condition: Good Discharge Instructions Nahed/Other Patient Handouts: Gastroparesis Activity Restrictions/Additional Instructions: Continue all medications as prescribed. Follow-up with your family doctor for recheck. Forms Stand Alone Forms: My [facility], Virtual Emergency Department, Important Visit Information Prescriptions Prescriptions: No Action warfarin 5 mg tablet See Rx Instructions PO UD RF: 0 Basaglar KwikPen U-100 Insulin 100 unit/mL (3 mL) insulin pen 12 unit SUBCUT QAM RF: 0 bupropion HCl 100 mg tablet sustained-release 12 hr 100 mg PO QAM RF: 0 acetaminophen 325 mg capsule 650 mg PO Q4H PRN (Reason: Pain (Scale Score 1-3)) RF: 0 amlodipine 5 mg tablet 5 mg PO DAILY Qty: 90 RF: 3 ondansetron HCl [Zofran] 4 mg tablet 4 mg PO Q4H PRN (Reason: NAUSEA/VOMITING) RF: 0 carvedilol 25 mg tablet 25 mg PO BIDM RF: 0 lorazepam 0.5 mg tablet 0.5 mg PO Q12 PRN (Reason: Anxiety) RF: 0 melatonin 3 mg tablet 3 mg PO HS RF: 0 sertraline 100 mg tablet 100 mg PO QAM Qty: 90 RF: 0 insulin aspart U-100 [Novolog Flexpen U-100 Insulin] 100 unit/mL (3 mL) insu carrie pen 5 unit SUBCUT TIDM PRN (Reason: sliding scale) RF: 0 pantoprazole 40 mg tablet,delayed release (DR/EC) 40 mg PO BID RF: 0 atorvastatin 10 mg Tablet 10 mg PO DAILY RF: 0 sodium chloride 0.9 % Solution 1,000 ml IV DIRECTED PRN (Reason: DIALYSIS) RF: 0 hydrocortisone 1 % Cream 1 applic TOPICAL Q6H PRN (Reason: Itching) RF: 0 bisacodyl 10 mg Suppository 10 mg ID DAILY PRN (Reason: Constipation) RF: 0 Nephrocaps 1 mg Capsule 1 cap PO DAILY RF: 0 polyethylene glycol 3350 [Miralax] 17 gram/dose Powder 17 g PO QDL PRN (Reason: Constipation) RF: 0 losartan 100 mg Tablet 100 mg PO DAILY RF: 0 darbepoetin jessee-albumin 60 mcg/0.3 mL Syringe 60 mcg WK RF: 0 cholecalciferol (vitamin D3) [Vitamin D3] 50 mcg (2,000 unit) Capsule 50 mcg PO DAILY RF: 0 Referrals Referrals: Abbi Ames MD [Primary Care Provider] -
--- NOTE | 2020-12-26 10:46 | XRay Report ---
XR chest 1V portable CLINICAL HISTORY: Nausea and vomiting COMPARISON STUDY: July 2020 FINDINGS: The heart is enlarged. Is a prior study the patient developed a moderate left pleural effus ion with associated left lower lobe atelectasis/consolidation. There is mild central vascular promine nce.[ IMPRESSION: 1. Interval development of a moderate left pleural effusion with associated left lower lung zone atel ectasis/consolidation ACT 112: Negative or not required by law. Electronically signed by: Geovanny Moncada M.D. 12/26/2020 10:44 AM
--- NOTE | 2020-12-26 10:51 | XRay Report ---
XR KUB/Abdomen 1 view CLINICAL HISTORY: [place] COMPARISON STUDY: September 16, 2020 FINDINGS: Nondilated gas and stool-filled loops of bowel are seen throughout the abdomen There is no evidence of free intra-abdominal air, however please note that supine abdominal radiograp hy has limited ability for evaluation for the free intra-abdominal air. Few calcifications are seen projecting to the pelvic region likely representing phleboliths. Also sma ll calcification is seen within right hemiabdomen, stable since prior and might represent renal calcu caesar versus other etiology. Bilateral pleural effusion is seen, moderate to large on the left and small to moderate on the right. IMPRESSION: 1. Nonobstructive bowel gas pattern. 2. Bilateral pleural effusion. 3. Possible calculus within right collecting system. ACT 112: Negative or not required by law. The above report was generated using voice recognition software. It may contain grammatical, syntax o r spelling errors. Electronically signed by: Cristina Wong DO 12/26/2020 10:49 AM
[2020-12-26 10:56] LABS: Basophils # (auto) 0.03 K/uL (0-0.2); Basophils % (auto) 0.4 %; Eosinophils # (auto) 0.21 K/uL (0-0.5); Eosinophils % (auto) 2.8 %; Hematocrit (blood only) 36.1 % (42-52); Hemoglobin 11.7 g/dL (14.0-18.0); Immature Granulocytes # (auto) 0.02 K/uL (0.00-0.02); Immature Granulocytes % (auto) 0.3 %; Lymphocytes # (auto) 0.86 K/uL (1.2-3.4); Lymphocytes % (auto) 11.6 %; Mean Corpuscular Hemoglobin 31.5 pg (25-34); Mean Corpuscular Hgb Conc 32.4 g/dL (32-36); Mean Platelet Volume 8.7 fL (7.4-10.4); Monocytes # (auto) 1.06 K/uL (0.11-0.59); Monocytes % (auto) 14.2 %; Neutrophils # (auto) 5.26 K/uL (1.4-6.5); Neutrophils % (auto) 70.7 %; Platelet Count 361 K/uL (130-400); RDW Coefficient of Variation 14.6 % (11.5-14.5); RDW Standard Deviation 52.4 fL (36.4-46.3); Red Blood Count 3.72 M/uL (4.7-6.1); White Blood Count 7.44 K/uL (4.8-10.8)
[2020-12-26 10:57] LABS: INR 3.4 (0.9-1.1); Partial Thromboplastin Ratio 1.5; Partial Thromboplastin Time 38.4 Seconds (21.0-31.0); Prothrombin Time 31.7 Seconds (9.0-12.0)
[2020-12-26 12:08] LABS: Alanine Aminotransferase 34 U/L (12-78); Albumin Level 3.2 gm/dl (3.4-5.0); Aspartate Aminotransferase 24 U/L (15-37); BUN Creatinine Ratio 5.5 (10-20); Blood Urea Nitrogen 14 mg/dl (7-18); Calcium 8.9 mg/dl (8.5-10.1); Carbon Dioxide 31 mmol/L (21-32); Chloride 97 mmol/L (98-107); Creatinine Clr Calc Pharmacy 30.7 ml/min; Est GFR (African American) 31.7 ml/min; Est GFR (Non-African American) 27.4 ml/min; Glucose 87 mg/dl (70-99); Lipase 89 U/L (73-393); Potassium 3.3 mmol/L (3.5-5.1); Sodium 135 mmol/L (136-145)
[2020-12-26 12:10] LABS: Albumin Globulin Ratio 0.8 (0.9-2); Alkaline Phosphatase 163 U/L (45-117); Bilirubin,Total 0.4 mg/dl (0.2-1); Globulin 3.9 gm/dl (2.5-4.0); Total Protein 7.1 gm/dl (6.4-8.2)
[2020-12-26] MEDS ORDERED: hydrALAZINE HCL 20 MG/ML VIAL IV ONE ×2 (12:11→13:20)
[2020-12-26 13:14] LABS: Troponin I < 0.015 ng/ml (0-0.045)
--- NOTE | 2020-12-26 16:26 | Electrocardiogram Report ---
Test Reason : Blood Pressure : / mmHG Vent. Rate : 095 BPM Atrial Rate : 095 BPM P-R Int : 198 ms QRS Dur : 090 ms QT Int : 362 ms P-R-T Axes : 068 017 120 degrees QTc Int : 454 ms Poor data quality, interpretation may be adversely affected Normal sinus rhythm Possible Left atrial enlargement Abnormal ECG When compared with ECG of 16-SEP-2020 15:48, Significant changes have occurred Confirmed by Jorge Alberto Romero ([id number]) on 12/26/2020 4:26:05 PM Referred By: REFERRED SELF Confirmed By:Jorge Alberto Romero
--- NOTE | 2020-12-26 16:51 | History & Physical Report ---
Date of Service December 26, 2020 Assessment & Plan (1) Cyclic vomiting syndrome: Plan: Patient has a long history of cyclic vomiting syndrome, may be exacerbated by constipation is seen on flatplate of the abdomen Please monitor observation Father tells me that IV Compazine and Benadryl work best as inpatient, will order both of these ATC Gentle IV hydration I will give a dose of MiraLAX for constipation, consider suppository PT/OT evaluation for ambulation, may help constipation as well (2) Hypertension: Plan: Will give a dose of hydralazine 50 mg IV x1, redosed as necessary Continue other medications as ordered, including carvedilol 25 mg twice daily losartan 100 mg daily amlodipine 5 mg daily (3) Dialysis patient: Plan: Patient is on hemodialysis Thursday, if patient remains in the hospital tomorrow will need a nephrology consult plan for hemodialysis on 12/28 (4) Nonischemic cardiomyopathy: Plan: Continue cardiac regimen including carvedilol as noted I did review recent echo, patient has moderate pericardial effusion, EF of 40 to 45%, elevated right atrial pressure. If patient starts to have respiratory issues, may be worthwhile to repeat (5) CAD (coronary artery disease): Plan: Cardiac medications as noted above along with atorvastatin 10 mg daily (6) Pleural effusion: Plan: Left-sided pleural effusion, considering history I suspect this may be CHF As patient does not have significant respiratory issues, would monitor for now Continue hemodialysis per nephrology If patient starts to develop respiratory issues, fever, or other problems would consider diagnostic/therapeutic thoracentesis (7) Pulmonary embolism: Plan: Patient is previous history of a pulmonary embolism was noted in record Anticoagulate with warfarin May be difficult to doses patient is not tolerating diet regular Check PT/INR, dose appropriately if tolerated History of Present Illness Chief Complaint: Intractable nausea and vomiting Primary Care Provider: Abbi Ames MD This is a 50-year-old male with past medical history of cyclical vomiting/gastroparesis, end-stage renal disease on hemodialysis that presents today with nausea vomiting. Patient is a very poor historian, but his father is present at bedside who is the patient's history documented in a binder. Patient has had longstanding issues with cyclic vomiting. At home, he typically uses Compazine and Zofran with variable relief. The father notes that the patient has been in the hospital multiple times, most recently [place] with concerns of pleural/pericardial effusions. Patient has been discharged from [facility] on 12/08 and has been home. Patient receives hemodialysis today, was having significant issues nausea vomiting during the treatment. After it was completed, he was brought via EMS to the emergency room for further further evaluation. Patient tells me he was able to tolerate some food and liquids about on the past 24 hours. In addition, he significantly hypertensive, last blood pressure was noted to be 193/90. On evaluation, the patient is sleepy and difficult to engage. The father is able to answer many questions. I did note that imaging showed a new left pleural effusion, he tells me this has been ongoing since his last hospitalization. Patient denies any shortness of breath, chest pain, or abdominal pain. Initially the plan was for the patient discharged home as it is a chronic condition but the patient and father do not feel that he would do well at home and is now being placed in observation for further treatment. Of note, patient's last bowel movement yesterday, described to slightly watery. Allergies Allergy/AdvReac Type Severity Reaction Status Date / Time shellfish derived Allergy Severe anaphylaxis Verified 12/11/20 13:28 codeine Allergy Intermediate Hives Verified 12/11/20 13:28 promethazine Allergy Intermediate itchy/hives Verified 12/11/20 13:28 Home Medications Medication Instructions Recorded Confirmed Type bupropion HCl 100 mg tablet,12 hr 100 mg PO QAM ea 04/14/19 12/26/20 History sustained-release lorazepam 0.5 mg tablet 0.5 mg PO Q12 PRN tab 07/25/19 12/26/20 History pantoprazole 40 mg tablet,delayed 40 mg PO BID 07/09/20 12/26/20 History release melatonin 3 mg tablet 3 mg PO HS tab 09/05/20 12/26/20 History acetaminophen 325 mg capsule 650 mg PO Q4H PRN cap 09/28/20 12/26/20 History carvedilol 25 mg tablet 25 mg PO BIDM tab 10/01/20 12/26/20 History ondansetron HCl 4 mg tablet 4 mg PO Q4H PRN 10/01/20 12/26/20 History (Zofran) atorvastatin 10 mg tablet 10 mg PO DAILY 11/29/20 12/26/20 History bisacodyl 10 mg rectal suppository 10 mg [place] DAILY PRN 11/29/20 12/26/20 History cholecalciferol (vitamin D3) 50 50 mcg PO DAILY 11/29/20 12/26/20 History mcg (2,000 unit) capsule (Vitamin D3) darbepoetin jessee-albumin 60 60 mcg WK 11/29/20 12/26/20 History mcg/0.3 mL in albumin injection syringe hydrocortisone 1 % topical cream 1 applic TOPICAL Q6H PRN 11/29/20 12/26/20 History losartan 100 mg tablet 100 mg PO DAILY 11/29/20 12/26/20 History polyethylene glycol 3350 17 17 g PO QDL PRN 11/29/20 12/26/20 History gram/dose oral powder (Miralax) sodium chloride 0.9 % 1,000 ml IV DIRECTED PRN 11/29/20 12/26/20 History vitamin B complex and vitamin C 1 cap PO DAILY 11/29/20 12/26/20 History no.20-folic acid 1 mg capsule amlodipine 5 mg tablet 5 mg PO DAILY #90 tab 12/07/20 12/26/20 Rx sertraline 100 mg tablet 100 mg PO QAM #90 tab 12/11/20 12/26/20 Rx insulin aspart U-100 100 unit/mL 5 unit SUBCUT TIDM PRN 12/21/20 12/26/20 History (3 mL) subcutaneous pen (Novolog Flexpen U-100 Insulin aspart) insulin glargine 100 unit/mL (3 12 unit SUBCUT QAM ml 12/21/20 12/26/20 History mL) subcutaneous pen (Basaglar KwikPen U-100 Insulin) warfarin 5 mg tablet See Rx Instructions PO UD tab 12/24/20 12/26/20 History Past Med/Surg History Medical History Anemia Anemia of chronic disease Anxiety AV fistula left arm CAD (coronary artery disease) mild, non-obstructive CAD per 10/2018 cardiac cath> [facility] Depression Diabetic retinopathy Dialysis patient DKA (diabetic ketoacidoses) Esophagitis ESRD (end stage renal disease) M,W,F (Follows with Dr. Taylor Higgins; [facility]/[place]) Gastroparesis GERD (gastroesophageal reflux disease) Hematemesis Hypertension Intractable vomiting with nausea Kidney stones Lumbar compression fracture Lumbar radiculopathy Peripheral neuropathy Retinopathy due to secondary diabetes Severe protein-calorie malnutrition Vomiting Surgical History H/O shoulder surgery RIGHT History of appendectomy History of cardiac cath 10/2018= no stents, no obstructive disease (at [facility]) History of cataract surgery History of esophagogastroduodenoscopy (EGD) (~03/08/20) History of hip surgery left HIP ARTHROSCOPY History of lithotripsy History of open reduction and internal fixation (ORIF) procedure right hip Nausea and vomiting after administration of anesthetic agent Permanent central venous catheter in place Permacath has been removed S/P arteriovenous (AV) fistula creation Family History Grandfather Myocardial infarction Grandfather (Maternal) Family history of diabetes mellitus Uncle Myocardial infarction Other No family history of adverse response to anesthesia Denies family history of Colon cancer Ovarian cancer Prostate cancer Breast cancer Social History Smoking Status: Never smoker Second Hand Exposure: No; Hx Alcohol Use: No Hx Substance Use: No Preferred Language: [place] Communication Ability: Effective Visual Impairment: No Limitations Hearing Ability: Normal Ocean Forwarder Required: No Beliefs That Will Affect Care: None marital status: Current Living Situation: Parent current occupational status: disabled How many Children do You have: 2 Feels Safe at Home: Yes Childhood Exposure to Second-Hand Smoke: Yes Dental Care, Regularly: No Physical Activity Frequency: 1-2 Times per Week Seatbelt Use: always Sunscreen Use: No Assistive Devices: None Review of Systems Constitutional: no fever, no chills, no weakness, no weight loss and no weight gain Eyes: as per Subjective / HPI Respiratory: no cough, no chest congestion, no dyspnea and no dyspnea on exertion Cardiovascular: no chest pain, no orthopnea, no palpitations, no lightheadedness and no edema Gastrointestinal: + nausea, + vomiting and + diarrhea/loose stools; no abdominal pain and no constipation Musculoskeletal: no back pain, no neck pain, no joint pain, no stiffness and no myalgia Integumentary: no rash Neurologic: no gait abnormality, no unsteadiness, no falls and no generalized weakness Physical Exam Constitutional: cooperative; no acute distress Neck: trachea midline, no thyromegaly Respiratory: normal respiratory effort Auscultation: lungs clear to auscultation bilaterally; no crackles, no rales, no rhonchi and no wheezes Cardiovascular: Rate/Rhythm: regular rate and regular rhythm Heart Sounds: normal S1 and normal S2 Gastrointestinal (Abdomen): Inspection/Auscultation: abdomen normal to inspection and + hypoactive bowel sounds Percussion/Palpation: abdomen soft; abdomen nontender, no guarding, abdomen not rigid and no hepatosplenomegaly Skin: no rashes, warm and dry Results & Data Results & Data ([facility]) Vital Signs (Past 12 Hours) Vital Signs Temp Pulse Resp BP Pulse Ox 12/26/20 15:30 98 H 17 193/90 H 95 12/26/20 15:00 67 18 192/85 H 94 12/26/20 14:30 93 H 14 186/82 H 95 12/26/20 14:00 96 H 20 184/80 H 94 12/26/20 13:30 89 2 L 211/85 H 95 12/26/20 13:00 91 H 16 201/85 H 95 12/26/20 12:30 92 H 18 193/77 H 96 12/26/20 12:00 87 18 233/98 H 97 12/26/20 11:00 82 21 208/80 H 87 L 12/26/20 10:45 113 H 13 218/91 H 12/26/20 10:40 95 12/26/20 10:33 96 H 14 12/26/20 09:43 37.3 C 97 H 21 201/100 H 97 12/26/20 09:38 95 H 8 L 224/111 H 12/26/20 09:34 97 Laboratory Results Laboratory Results WBC 7.44 K/uL (4.8-10.8) 12/26/20 10:25 RBC 3.72 M/uL (4.7-6.1) L 12/26/20 10:25 Hgb 11.7 g/dL (14.0-18.0) L 12/26/20 10:25 Hct 36.1 % (42-52) L 12/26/20 10:25 MCV 97.0 fL (80-100) 12/26/20 10:25 MCH 31.5 pg (25-34) 12/26/20 10:25 MCHC 32.4 g/dL (32-36) 12/26/20 10:25 RDW Std Deviation 52.4 fL (36.4-46.3) H 12/26/20 10:25 RDW Coeff of Kami 14.6 % (11.5-14.5) H 12/26/20 10:25 Plt Count 361 K/uL (130-400) 12/26/20 10:25 MPV 8.7 fL (7.4-10.4) 12/26/20 10:25 Immature Gran % (Auto) 0.3 % 12/26/20 10:25 Neut % (Auto) 70.7 % 12/26/20 10:25 Lymph % (Auto) 11.6 % 12/26/20 10:25 [place] % (Auto) 14.2 % 12/26/20 10:25 Eos % (Auto) 2.8 % 12/26/20 10:25 Baso % (Auto) 0.4 % 12/26/20 10:25 Neut # (Auto) 5.26 K/uL (1.4-6.5) 12/26/20 10:25 Lymph # (Auto) 0.86 K/uL (1.2-3.4) L 12/26/20 10:25 [place] # (Auto) 1.06 K/uL (0.11-0.59) H 12/26/20 10:25 Eos # (Auto) 0.21 K/uL (0-0.5) 12/26/20 10:25 Baso # (Auto) 0.03 K/uL (0-0.2) 12/26/20 10:25 Immature Gran # (Auto) 0.02 K/uL (0.00-0.02) 12/26/20 10:25 PT 31.7 Seconds (9.0-12.0) H 12/26/20 10:25 INR 3.4 (0.9-1.1) H 12/26/20 10:25 APTT 38.4 Seconds (21.0-31.0) H 12/26/20 10:25 PTT Ratio 1.5 12/26/20 10:25 Sodium 135 mmol/L (136-145) L 12/26/20 10:25 Potassium 3.3 mmol/L (3.5-5.1) L 12/26/20 10:25 Chloride 97 mmol/L (98-107) L 12/26/20 10:25 Carbon Dioxide 31 mmol/L (21-32) 12/26/20 10:25 Anion Gap 7.0 (3-11) 12/26/20 10:25 BUN 14 mg/dl (7-18) 12/26/20 10:25 Creatinine 2.61 mg/dl (0.6-1.4) H 12/26/20 10:25 Est Cr Clr Drug Dosing 30.7 ml/min 12/26/20 10:25 Est GFR ( Amer) 31.7 ml/min 12/26/20 10:25 Est GFR (Non-Af Amer) 27.4 ml/min 12/26/20 10:25 BUN/Creatinine Ratio 5.5 (10-20) L 12/26/20 10:25 Glucose 87 mg/dl (70-99) 12/26/20 10:25 POC Glucose 77 mg/dl (70-99) 12/26/20 09:52 Calcium 8.9 mg/dl (8.5-10.1) 12/26/20 10:25 Total Bilirubin 0.4 mg/dl (0.2-1) 12/26/20 10:25 AST 24 U/L (15-37) 12/26/20 10:25 ALT 34 U/L (12-78) 12/26/20 10:25 Alkaline Phosphatase 163 U/L (45-117) H 12/26/20 10:25 Troponin I < 0.015 ng/ml (0-0.045) 12/26/20 10:25 Total Protein 7.1 gm/dl (6.4-8.2) 12/26/20 10:25 Albumin 3.2 gm/dl (3.4-5.0) L 12/26/20 10:25 Globulin 3.9 gm/dl (2.5-4.0) 12/26/20 10:25 Albumin/Globulin Ratio 0.8 (0.9-2) L 12/26/20 10:25 Lipase 89 U/L (73-393) 12/26/20 10:25 COVID-19 Eval Order Covid19 at [facility] 12/26/20 15:09 SARS-CoV-2 (PCR) NEGATIVE (Negative) 12/26/20 15:09 Impressions Chest X-Ray 12/26/20 10:10 XR chest 1V portable CLINICAL HISTORY: Nausea and vomiting COMPARISON STUDY: July 2020 FINDINGS: The heart is enlarged. Is a prior study the patient developed a moderate left pleural effusion with associated left lower lobe atelectasis/consolidation. There is mild central vascular prominence.[ IMPRESSION: 1. Interval development of a moderate left pleural effusion with associated left lower lung zone atelectasis/consolidation ACT 112: Negative or not required by law. Electronically signed by: Geovanny Moncada M.D. 12/26/2020 10:44 AM KUB X-Ray 12/26/20 10:10 XR KUB/Abdomen 1 view CLINICAL HISTORY: [place] COMPARISON STUDY: September 16, 2020 FINDINGS: Nondilated gas and stool-filled loops of bowel are seen throughout the abdomen There is no evidence of free intra-abdominal air, however please note that supine abdominal radiography has limited ability for evaluation for the free intra-abdominal air. Few calcifications are seen projecting to the pelvic region likely representing phleboliths. Also small calcification is seen within right hemiabdomen, stable since prior and might represent renal calculus versus other etiology. Bilateral pleural effusion is seen, moderate to large on the left and small to moderate on the right. IMPRESSION: 1. Nonobstructive bowel gas pattern. 2. Bilateral pleural effusion. 3. Possible calculus within right collecting system. ACT 112: Negative or not required by law. The above report was generated using voice recognition software. It may contain grammatical, syntax or spelling errors. Electronically signed by: Cristina Wong DO 12/26/2020 10:49 AM PG Care Time/CCT Total # of Minutes Spent Total Time Spent with Patient: Total time spent is greater than 50% in coordination of care (as documented) at patient's floor/unit and/or counseling patient: Coding Level of Care Code INT OBSERVATION CARE 70M LVL 3 Diagnoses Cyclic vomiting syndrome R11.15 Hypertension I10 Hypertension type: unspecified Dialysis patient Z99.2 Nonischemic cardiomyopathy I42.8 CAD (coronary artery disease) I25.10 Coronary Disease-Associated Artery/Lesion type: [place] artery [place] vs. transplanted heart: [place] heart Associated angina: without angina Pleural effusion J90 Pulmonary embolism I26.99 (1) Hypertension Hypertension type: unspecified Qualified Code(s): I10 - Essential (primary) hypertension (2) CAD (coronary artery disease) Coronary Disease-Associated Artery/Lesion type: [place] artery [place] vs. transplanted heart: [place] heart Associated angina: without angina Qualified Code(s): I25.10 - Atherosclerotic heart disease of [place] coronary artery without angina pectoris
[2020-12-26] MEDS ORDERED: hydrALAZINE HCL 20 MG/ML VIAL IV STA (17:13)
--- NOTE | 2020-12-26 19:07 | CT Scan Report ---
CT OF THE ABDOMEN AND PELVIS WITHOUT CONTRAST CLINICAL HISTORY: Vomiting. COMPARISON STUDY: CT of the abdomen and pelvis June 16, 2020. TECHNIQUE: Axial images of the abdomen and pelvis were obtained without IV contrast. Images were revi ewed in the axial, sagittal, and coronal planes. Automated exposure control was utilized for the jean claude dy. A dose lowering technique was utilized adhering to the principles of ALARA. FINDINGS: Imaged portions of the lower chest partially visualize moderate left and small right pleura l effusions. There is left lower lobe compressive atelectasis. There is segmental atelectasis of the lingula. Interlobular septal thickening represents pulmonary edema. Evaluation of the abdomen and pelvis is suboptimal on this unenhanced exam. No pneumatosis, free air or portal venous gas is present. The appendix is surgically absent. Unenhanced images of liver, splee n, adrenal glands and pancreas are unremarkable. There is no biliary or pancreatic ductal dilatation. Note is made of a 6 mm right ureteropelvic junction calculus without hydronephrosis. Water attenuati on lesion within the upper pole of the left kidney is suboptimally assessed on this unenhanced exam b ut favors a cyst. There is no evidence for a bowel obstruction. Bladder wall thickening is unchanged. There is mild anasarca. Right femoral internal fixation hardware is partially imaged. Several old lo wer thoracic and lumbar spine compression fractures are unchanged. No acute fracture is identified wi thin visualized skeletal structures. Extensive vascular calcification. IMPRESSION: 1. 6 mm right ureteropelvic junction calculus. No hydronephrosis. 2. Partially visualized moderate left and small right pleural effusions with compressive atelectasis of the left lower lobe and segmental lingular atelectasis. Mild anasarca. Interstitial pulmonary cristhian a. 3. Suboptimal evaluation of the abdomen and pelvis on this unenhanced exam. 4. No bowel obstruction. Chronic diverticulosis without evidence for acute diverticulitis. ACT 112: Negative or not required by law. Electronically signed by: Gabino Cool M.D. 12/26/2020 7:06 PM
[2020-12-26] MEDS ORDERED: bisacodyL 10 MG SUPP PR PRN (20:53)
[2020-12-26] MEDS ORDERED: [UNRECOGNIZED DRUG - OTHER] IV PRN (20:53)
[2020-12-26] MEDS ORDERED: ACETAMINOPHEN 325 MG TAB PO PRN (20:53)
[2020-12-26] MEDS ORDERED: SODIUM CHLORIDE 0.9% IV PRN (20:53)
[2020-12-26] MEDS ORDERED: NON-FORMULARY MEDICATION (Acetaminophen 325 mg capsule) PO PRN (20:53)
[2020-12-26] MEDS ORDERED: POLYETHYLENE (MIRALAX) 17 GM PACK PO PRN (20:53)
[2020-12-26] MEDS: MELATONIN 3 MG TAB PO SCH (21:23)
[2020-12-26] MEDS: ONDANSETRON INJ 2 MG/ML 2 ML VIAL IV PRN (21:58)
[2020-12-26] MEDS: PANTOprazole 40 MG TAB PO SCH (22:00)
[2020-12-26] MEDS ORDERED: GLUCOSE 10 TABS/TUBE PO PRN (23:10)
[2020-12-26] MEDS ORDERED: GLUCOSE 40% GEL 15 GM TUBE PO PRN (23:10)
[2020-12-26] MEDS ORDERED: GLUCAGON FOR INJ 1 MG VIAL SQ PRN (23:10)
[2020-12-26] MEDS ORDERED: DEXTROSE 50% 50 ML SYRINGE IV PRN (23:10)
[2020-12-26] MEDS ORDERED: PHARMACY GLYCEMIC MGMT CONSULT PRN (23:12)
[2020-12-26] MEDS ORDERED: INSULIN GLARGINE SOLOSTAR 100 UNITS/ML 3 ML PEN SQ STA (23:28)
[2020-12-26] MEDS ORDERED: INSULIN ASPART 100 UNITS/ML 3 ML PEN SC STA (23:30)
[2020-12-27] MEDS ORDERED: INSULIN ASPART 100 UNITS/ML 3 ML PEN SC SCH ×2 (03:00→07:30)
[2020-12-27] MEDS: PROCHLORPERAZINE 10 MG in SYRINGE 8 ML IV PRN ×2 (03:12→22:56)
--- NOTE | 2020-12-27 05:43 | Pharmacy Report ---
Pharmacy Glycemic Short Note 2 - Date of Service December 27, 2020 - Glycemic Short BSG Results (Last 24 hours): 12/26/20 12/26/20 12/26/20 09:52 10:25 20:59 Glucose 87 POC Glucose 77 290 H 12/26/20 12/26/20 12/27/20 22:46 22:58 02:51 Glucose POC Glucose 305 H* 331 H* 250 H OUTPATIENT ANTIDIABETIC REGIMEN: * Lantus 12 units SC AM * Novolog 5 units SC TIDM + SSI * HbA1c pending ASSESSMENT: * 50 yo M admitted overnight secondary to intractable nausea and vomiting. Pharmacy has been consulted to assist with inpatient glycemic management. Patient is a Type 1 Diabetic that is well know to pharmacy's glycemic service. * Admission BSG was 77 mg/dL this AM. It was unknown if patient took his AM dose of Lantus. Next BSG was not taken until almost 2100. It was 290 mg/dL and no i nsulin was ordered at that time. * Pharmacy was consulted around 2300 when BSG was 305 mg/dL with a repeat of 331 mg/dL. * Gave 12 units of Lantus at this time (home dose) * Started Novolog based on previous admission data. * Added overnight check to ensure BSG is trending downward PLAN FOR INPATIENT GLYCEMIC CONTROL: * Basal insulin * Lantus 12 units SC x 1 * Bolus insulin * NovoLog per scale ACHS or Q6hrs while NPO * Goal Range: Low 110 mg/dL - High 150 mg/dL * Correction Factor: 30 mg/dL/unit * Nutritional / Prandial insulin per carb ratio of 1 unit per 10 grams CHO consumed PLAN FOR DISCHARGE: * To be determined
[2020-12-27 06:41] LABS: INR 4.7 (0.9-1.1); Prothrombin Time 42.4 Seconds (9.0-12.0)
[2020-12-27 06:46] LABS: Basophils # (auto) 0.01 K/uL (0-0.2); Basophils % (auto) 0.1 %; Hematocrit (blood only) 36.7 % (42-52); Hemoglobin 11.8 g/dL (14.0-18.0); Immature Granulocytes # (auto) 0.01 K/uL (0.00-0.02); Immature Granulocytes % (auto) 0.1 %; Lymphocytes # (auto) 0.73 K/uL (1.2-3.4); Lymphocytes % (auto) 10.2 %; Mean Corpuscular Hemoglobin 31.7 pg (25-34); Mean Corpuscular Hgb Conc 32.2 g/dL (32-36); Mean Corpuscular Volume 98.7 fL (80-100); Mean Platelet Volume 8.9 fL (7.4-10.4); Monocytes # (auto) 1.01 K/uL (0.11-0.59); Monocytes % (auto) 14.1 %; Neutrophils % (auto) 75.5 %; Platelet Count 393 K/uL (130-400); RDW Coefficient of Variation 14.8 % (11.5-14.5); RDW Standard Deviation 53.8 fL (36.4-46.3); Red Blood Count 3.72 M/uL (4.7-6.1); White Blood Count 7.16 K/uL (4.8-10.8)
[2020-12-27 06:55] LABS: Calcium 8.5 mg/dl (8.5-10.1); Magnesium 2.2 mg/dl (1.8-2.4)
[2020-12-27 07:18] LABS: BUN Creatinine Ratio 7.4 (10-20); Creatinine Clr Calc Pharmacy 20.5 ml/min; Est GFR (African American) 18.2 ml/min; Est GFR (Non-African American) 15.7 ml/min
[2020-12-27 07:29] LABS: Estimated Average Glucose 151 mg/dl; Hemoglobin A1C 6.9 % (4.5-5.6)
[2020-12-27] MEDS ORDERED: INSULIN GLARGINE SOLOSTAR 100 UNITS/ML 3 ML PEN SQ SCH (09:00)
[2020-12-27] MEDS: INSULIN ASPART 100 UNITS/ML 3 ML PEN SC SCH ×4 (09:26→21:25)
[2020-12-27] MEDS: carvediloL 25 MG TAB PO SCH ×2 (11:16→17:23)
[2020-12-27] MEDS: amLODIPine BESYLATE 5 MG TAB PO SCH (11:16)
[2020-12-27] MEDS: CHOLECALCIFEROL 1,000 UNITS 25 MCG TAB PO SCH (11:17)
[2020-12-27] MEDS: buPROPion SR 100 MG TABCR PO SCH (11:17)
[2020-12-27] MEDS: ATORVASTATIN 10 MG TAB PO SCH (11:17)
[2020-12-27] MEDS: NEPHROCAPS PO SCH (11:18)
[2020-12-27] MEDS: SERTRALINE HCL 100 MG TABLET PO SCH (11:18)
[2020-12-27] MEDS: PANTOprazole 40 MG TAB PO SCH ×2 (11:18→21:24)
[2020-12-27] MEDS: LOSARTAN POTASSIUM 50 MG TAB PO SCH (11:18)
[2020-12-27] MEDS: ONDANSETRON INJ 2 MG/ML 2 ML VIAL IV PRN ×2 (11:19→17:22)
[2020-12-27] MEDS: CARBOHYDRATES FOR HYPOGLYCEMIA PO PRN (12:15)
--- NOTE | 2020-12-27 13:41 | XCELERA ---
[id number]
--- NOTE | 2020-12-27 15:00 | Pharmacy Report ---
Pharmacy Glycemic Short Note 2 - Date of Service December 27, 2020 - Glycemic Short BSG Results (Last 24 hours): 12/26/20 12/26/20 12/26/20 20:59 22:46 22:58 Glucose POC Glucose 290 H 305 H* 331 H* 12/27/20 12/27/20 12/27/20 02:51 05:37 07:44 Glucose 124 H POC Glucose 250 H 88 12/27/20 12/27/20 12/27/20 12:06 12:08 12:30 Glucose POC Glucose 49 L* 52 L* 115 H OUTPATIENT ANTIDIABETIC REGIMEN: * Lantus 12 units SC AM * Novolog CR 30 over 150 mg/dL; carbohydrate ratio of 10 * HbA1c pending ASSESSMENT: 12/27/20 * BSGs overnight was 331-250 mg/dL. Fasting BSG is 88 mg/dL-49 mg/dL. Patient received Lantus 12 units on 12/26/20 (confirmed no home dose of Lantus Thursday AM) plus 9 units of Novolog overnight. No subsequent insulin dosing since 0. * Patient had hypoglycemia episode at lunchtime due to lack of PO intake at breakfast time. * Work towards resuming Lantus in the morning. * Novolog scale that is looser since Lantus is being shifted earlier. Background * 50 yo M admitted overnight secondary to intractable nausea and vomiting. Pharmacy has been consulted to assist with inpatient glycemic management. Patient is a Type 1 Diabetic that is well know to pharmacy's glycemic service. * Admission BSG was 77 mg/dL this AM. It was unknown if patient took his AM dose of Lantus. Next BSG was not taken until almost 2100. It was 290 mg/dL and no insulin was ordered at that time. * Pharmacy was consulted around 2300 when BSG was 305 mg/dL with a repeat of 331 mg/dL. * Gave 12 units of Lantus at this time (home dose) * Started Novolog based on previous admission data. * Added overnight check to ensure BSG is trending downward PLAN FOR INPATIENT GLYCEMIC CONTROL: * Basal insulin * Lantus 12 units SQ daily with shifts towards qAM dosing * Bolus insulin * NovoLog per scale ACHS or Q6hrs while NPO * Goal Range: Low 110 mg/dL - High 150 mg/dL * Correction Factor: 40 mg/dL/unit * Nutritional / Prandial insulin per carb ratio of 1 unit per 12 grams CHO consumed PLAN FOR DISCHARGE: * To be determined
[2020-12-27] MEDS ORDERED: WARFARIN SOD 5 MG TAB PO SCH (16:00)
[2020-12-27 18:08] LABS: Hepatitis B Surface Antibody Immune
[2020-12-27 18:18] LABS: Hepatitis B Surf Ag Rflx Conf Neg (Neg)
--- NOTE | 2020-12-27 20:10 | Hospitalist Progress Note ---
Date of Service December 27, 2020 Assessment & Plan (1) Gastroparesis: Plan: N/V 2nd to such. Improved. Moving right-sided 6mm stone could have also caused symptoms but less likely given the lack of hydronephrosis, etc. Start clears. Cont PPI bid. (2) Pleural effusion: Plan: Left-sided pleural effusion. s/p thoracentesis last month in [facility]. Transudative?? 2nd ESRD? Would need to get records. The effusion is rather large and may merit another thoracentesis. Hold coumadin. Await INR to be lower. Consult pulmonary when INR is <2. (3) Pericardial effusion: Plan: Echo performed today - effusion is smaller than last study. No evidence of tamponade. Suspect 2nd ESRD. (4) Ureteral calculus, right: Plan: at the [facility]. 6mm. no hydronephrosis. I spoke with [facility] - they recommend outpatient f/u to discuss Rx options. (5) Pulmonary embolism: Plan: dx 1 month ago, [facility]. CHERI. on coumadin. INR >4 today - hold. INR in am. (6) ESRD (end stage renal disease): Plan: [facility]phrology consulted. Schedule - M/W/. (7) Dialysis patient: Plan: Patient is on hemodialysis Thursday, if patient remains in the hospital tomorrow will need a nephrology consult plan for hemodialysis on 12/28 (8) Hypertension: Plan: Cont carvedilol 25 mg twice daily, losartan 100 mg daily, amlodipine 5 mg daily. Titrate as needed. (9) Nonischemic cardiomyopathy: Plan: Chronic systolic. EF 40-45%. Cont BB. Cont ARB. HD for volume control. (10) CAD (coronary artery disease): Plan: Lipitor. Non-obstructive. Cont BB. 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 cont lantus. cont novolog. pharmacy consulted and providing recs. Admission and Anticipated Discharge Date Admission Date: December 26, 2020 Subjective patient feeling better in comparison to yesterday tolerating sips of clears minimal nausea no further vomiting reports he was hospitalized at [facility] last month underwent thoracentesis of left lung -- 900cc removed he was placed on anticoagulation for CHERI PE discovered on imaging he is aware of pericardial effusion dopplers of legs per his recollection were negative for DVT continues to live with parents in [place] Review of Systems Constitutional: no fever, no chills, no fatigue and no weakness Respiratory: no cough, no dyspnea, no dyspnea on exertion, no hemoptysis, no pain on inspiration and no wheezing Cardiovascular: no chest pain and no orthopnea Gastrointestinal: + nausea; no abdominal pain and no vomiting Genitourinary: + as per Subjective / HPI (does not make urine); no hematuria Physical Exam Constitutional: no acute distress and no altered mental status ENMT: Mouth: + dry oral mucous membranes Respiratory: normal respiratory effort; no respiratory distress and not tachypneic Auscultation: + diminished lung sounds (left base ) Cardiovascular: Rate/Rhythm: regular rate and regular rhythm Heart Sounds: normal S1, normal S2 and + murmur (2/6 LUSB/LLSB ) Extremities: + AV fistula (left arm with bruit ) Gastrointestinal (Abdomen): normal bowel sounds, soft, nontender, no hepatosplenomegaly no flank tenderness Psychiatric: Orientation: alert and oriented x 3 Affect: + flat affect Results & Data Results & Data ([facility]) Vital Signs (Past 12 Hours) Vital Signs Temp Pulse Pulse Resp BP Pulse Ox 12/27/20 19:41 37.1 C 80 18 146/72 H 94 12/27/20 18:17 79 12/27/20 15:46 36.7 C 80 16 151/70 H 95 12/27/20 12:17 90 16 185/87 H 97 Laboratory Results Laboratory Results - last 24 hr 12/26/20 12/26/20 12/26/20 10:28 20:59 22:46 WBC RBC Hgb Hct MCV MCH MCHC RDW Std Deviation RDW Coeff of Kami Plt Count MPV Immature Gran % (Auto) Neut % (Auto) Lymph % (Auto) [place] % (Auto) Eos % (Auto) Baso % (Auto) Neut # (Auto) Lymph # (Auto) [place] # (Auto) Eos # (Auto) Baso # (Auto) Immature Gran # (Auto) PT INR Sodium Potassium Chloride Carbon Dioxide Anion Gap BUN Creatinine Est Cr Clr Drug Dosing Est GFR ( Amer) Est GFR (Non-Af Amer) BUN/Creatinine Ratio Glucose POC Glucose 290 H 305 H* Estimat Average Glucose Hemoglobin A1c Calcium Magnesium Hep Bs Antigen Neg Hep Bs Antibody Immune Hep Bs Antibody, Quant 338.50 12/26/20 12/27/20 12/27/20 22:58 02:51 05:37 WBC 7.16 RBC 3.72 L Hgb 11.8 L Hct 36.7 L MCV 98.7 MCH 31.7 MCHC 32.2 RDW Std Deviation 53.8 H RDW Coeff of Kami 14.8 H Plt Count 393 MPV 8.9 Immature Gran % (Auto) 0.1 Neut % (Auto) 75.5 Lymph % (Auto) 10.2 [place] % (Auto) 14.1 Eos % (Auto) 0.0 Baso % (Auto) 0.1 Neut # (Auto) 5.40 Lymph # (Auto) 0.73 L [place] # (Auto) 1.01 H Eos # (Auto) 0.00 Baso # (Auto) 0.01 Immature Gran # (Auto) 0.01 PT INR Sodium Potassium Chloride Carbon Dioxide Anion Gap BUN Creatinine Est Cr Clr Drug Dosing Est GFR ( Amer) Est GFR (Non-Af Amer) BUN/Creatinine Ratio Glucose POC Glucose 331 H* 250 H Estimat Average Glucose Hemoglobin A1c Calcium Magnesium Hep Bs Antigen Hep Bs Antibody Hep Bs Antibody, Quant 12/27/20 12/27/20 12/27/20 05:37 05:37 05:37 WBC RBC Hgb Hct MCV MCH MCHC RDW Std Deviation RDW Coeff of Kami Plt Count MPV Immature Gran % (Auto) Neut % (Auto) Lymph % (Auto) [place] % (Auto) Eos % (Auto) Baso % (Auto) Neut # (Auto) Lymph # (Auto) [place] # (Auto) Eos # (Auto) Baso # (Auto) Immature Gran # (Auto) PT 42.4 H INR 4.7 H Sodium 134 L Potassium 4.0 D Chloride 99 Carbon Dioxide 28 Anion Gap 7.0 BUN 31 H D Creatinine 4.13 H D Est Cr Clr Drug Dosing 20.5 Est GFR ( Amer) 18.2 Est GFR (Non-Af Amer) 15.7 BUN/Creatinine Ratio 7.4 L Glucose 124 H POC Glucose Estimat Average Glucose 151 Hemoglobin A1c 6.9 H Calcium 8.5 Magnesium 2.2 Hep Bs Antigen Hep Bs Antibody Hep Bs Antibody, Quant 12/27/20 12/27/20 12/27/20 07:44 12:06 12:08 WBC RBC Hgb Hct MCV MCH MCHC RDW Std Deviation RDW Coeff of Kami Plt Count MPV Immature Gran % (Auto) Neut % (Auto) Lymph % (Auto) [place] % (Auto) Eos % (Auto) Baso % (Auto) Neut # (Auto) Lymph # (Auto) [place] # (Auto) Eos # (Auto) Baso # (Auto) Immature Gran # (Auto) PT INR Sodium Potassium Chloride Carbon Dioxide Anion Gap BUN Creatinine Est Cr Clr Drug Dosing Est GFR ( Amer) Est GFR (Non-Af Amer) BUN/Creatinine Ratio Glucose POC Glucose 88 49 L* 52 L* Estimat Average Glucose Hemoglobin A1c Calcium Magnesium Hep Bs Antigen Hep Bs Antibody Hep Bs Antibody, Quant 12/27/20 12/27/20 12:30 16:54 WBC RBC Hgb Hct MCV MCH MCHC RDW Std Deviation RDW Coeff of Kami Plt Count MPV Immature Gran % (Auto) Neut % (Auto) Lymph % (Auto) [place] % (Auto) Eos % (Auto) Baso % (Auto) Neut # (Auto) Lymph # (Auto) [place] # (Auto) Eos # (Auto) Baso # (Auto) Immature Gran # (Auto) PT INR Sodium Potassium Chloride Carbon Dioxide Anion Gap BUN Creatinine Est Cr Clr Drug Dosing Est GFR ( Amer) Est GFR (Non-Af Amer) BUN/Creatinine Ratio Glucose POC Glucose 115 H 130 H Estimat Average Glucose Hemoglobin A1c Calcium Magnesium Hep Bs Antigen Hep Bs Antibody Hep Bs Antibody, Quant PG Care Time/CCT Total # of Minutes Spent Total Time Spent with Patient: Total time spent is greater than 50% in coordi nation of care (as documented) at patient's floor/unit and/or counseling patient: Coding Level of Care Code 11063 Subseq Obs Care Lvl 3 Diagnoses Hypertension I10 Hypertension type: unspecified Dialysis patient Z99.2 Nonischemic cardiomyopathy I42.8 CAD (coronary artery disease) I25.10 Associated angina: without angina Coronary Disease-Associated Artery/Lesion type: [place]man artery [place] vs. 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 transplanted heart: saxman heart Qualified Code(s): I25.10 - Atherosclerotic heart disease of saxman coronary artery without angina pectoris (2) Hypertension Hypertension type: unspecified Qualified Code(s): I10 - Essential (primary) hypertension
[2020-12-27] MEDS ORDERED: INSULIN GLARGINE SOLOSTAR 100 UNITS/ML 3 ML PEN SC ONE (21:00)
[2020-12-27] MEDS: MELATONIN 3 MG TAB PO SCH (21:24)
[2020-12-28] MEDS: ONDANSETRON INJ 2 MG/ML 2 ML VIAL IV PRN ×4 (00:18→21:24)
[2020-12-28] MEDS: diphenhydrAMINE 50 MG/ML VIAL IV PRN ×2 (01:40→17:05)
[2020-12-28] MEDS: ONDANSETRON 4 MG OD TAB PO PRN (04:23)
[2020-12-28] MEDS: LORazepam 0.5 MG TAB PO PRN ×2 (07:39→17:45)
[2020-12-28] MEDS: CHOLECALCIFEROL 1,000 UNITS 25 MCG TAB PO SCH (08:57)
[2020-12-28] MEDS: ATORVASTATIN 10 MG TAB PO SCH (08:57)
[2020-12-28] MEDS: SERTRALINE HCL 100 MG TABLET PO SCH (08:58)
[2020-12-28] MEDS: PANTOprazole 40 MG TAB PO SCH ×2 (08:58→21:21)
[2020-12-28] MEDS: buPROPion SR 100 MG TABCR PO SCH (08:58)
[2020-12-28] MEDS: NEPHROCAPS PO SCH (08:58)
[2020-12-28] MEDS: INSULIN ASPART 100 UNITS/ML 3 ML PEN SC SCH ×5 (09:02→20:26)
[2020-12-28 10:11] LABS: Prothrombin Time 49.2 Seconds (9.0-12.0)
[2020-12-28] MEDS: carvediloL 25 MG TAB PO SCH ×3 (10:12→21:21)
[2020-12-28] MEDS: LOSARTAN POTASSIUM 50 MG TAB PO SCH ×2 (10:13→13:41)
[2020-12-28] MEDS: amLODIPine BESYLATE 5 MG TAB PO SCH ×2 (10:13→13:41)
[2020-12-28 10:16] LABS: INR 5.6 (0.9-1.1)
--- NOTE | 2020-12-28 11:36 | Consultation Report ---
DATE OF CONSULT: 12/28/2020 REASON FOR CONSULT: Dialysis, patient admitted with nausea, vomiting. HISTORY OF PRESENT ILLNESS: The patient is a 50-year-old male with longstanding history of diabetes with severe diabetic gastroparesis, ESRD on chronic hemodialysis Thursday, Thursday, Thursday, admitted with severe nausea, vomiting 2 days ago. His last dialysis was on Thursday as per schedule. It is worth noting the patient has had numerous admissions for the exact same problem both at [facility] as well as [facility]. He is currently getting dialysis. His blood pres sure is high in supine position, but is somewhat low when he is standing. ALLERGIES: Reviewed. HOME MEDICATIONS: List was reviewed in detail and is as per the reconciliation list. PAST MEDICAL HISTORY: Includes longstanding diabetes with diabetic ketoacidosis, diabetic neuropathy , retinopathy, end-stage renal disease on dialysis Thursday, Thursday, Thursday; hypertension, history o f kidney stones, lumbar compression fracture, intractable nausea, vomiting with severe gastroparesis. PAST SURGICAL HISTORY: Shoulder surgery, appendicectomy cardiac catheterization with no stents, romi ract surgery, hip surgery, lithotripsy, surgery of right hip. FAMILY HISTORY: Negative for renal disease or dialysis. SOCIAL HISTORY: He is . He is currently living with his family. He is disabled. No smokin g. No alcohol. REVIEW OF SYSTEMS: Unable to obtain as the patient barely answered my question. As per the H and P, his complaint was essentially the nausea and vomiting and unable to keep food and liquid down. This is an ongoing symptom secondary to severe gastroparesis requiring numerous hospital admissions for t he same problem. Otherwise, twelve systems reviewed and negative. PHYSICAL EXAMINATION: GENERAL: Awake, alert, oriented, got very sleepy and did not really answer my question that much, aw maria antonia and alert. VITAL SIGNS: Blood pressure is 185/101 supine position, 93% on 2 liters nasal cannula, temperature 3 6.5. HEENT: Mucous membranes moist. NECK: Supple. No jugular venous distention. CHEST: Bilateral clear to auscultation. CARDIOVASCULAR: S1, S2, regular. ABDOMEN: Soft, nontender. EXTREMITIES: Show no edema. AV fistula is working fine. NEUROLOGIC: Awake and alert. SKIN: Shows no rashes. LABORATORY DATA: He had CT abdomen and pelvis without contrast yesterday. He was found to have a sm all kidney stone, no hydronephrosis, moderate left and small right pleural effusion, hemoglobin 11.8. Chemistry from yesterday morning showed sodium 134, potassium 4, BUN 31, creatinine 4.13. ASSESSMENT AND PLAN: A 50-year-old male with longstanding diabetes with ESRD, on chronic hemodialysi s Thursday, Thursday, Thursday, now admitted with recurrent intractable nausea, vomiting. 1. Endstage renal disease: He has a fistula and is working fine, even though he does not appear to b e volume overloaded on physical examination, he does have bilateral pleural effusion, so we will try to take a little extra fluid off as much as possible. His blood pressure is high in the supine posit ion, but he does have some autonomic neuropathy, so we have to be careful as his standing blood press ure is almost always lot lower than his supine. 2. Intractable nausea, vomiting. Unfortunately, this seems to be his permanent problem. He has had numerous admissions in different hospitals for the exact same problem and has been evaluated and see n by gastroenterology numerous times. Defer to GI and primary team. Thank you very much for the consult. Job ID: [id number]
[2020-12-28] MEDS: WARFARIN SOD 2.5 MG TAB PO SCH (16:21)
[2020-12-28] MEDS: INSULIN GLARGINE SOLOSTAR 100 UNITS/ML 3 ML PEN SC SCH (17:53)
--- NOTE | 2020-12-28 20:28 | Hospitalist Progress Note ---
Date of Service December 28, 2020 Assessment & Plan (1) Gastroparesis: Plan: N/V 2nd to such. Improved, but then felt worse post-HD today. Moving right-sided 6mm stone could have also caused symptoms but less likely given the lack of hydronephrosis, etc. Remains on full liquids. Treat nausea. Cont PPI bid. (2) Pleural effusion: Plan: Left-sided pleural effusion. s/p thoracentesis last month in [facility]. Transudative?? 2nd ESRD? Would need to get records. The effusion is rather large and may merit another thoracentesis. Hold coumadin. Await INR to be lower. Consult pulmonary when INR is <2, or if he discharges will set up as outpatient. (3) Pericardial effusion: Plan: Echo performed this admission - effusion is smaller than last study. No evidence of tamponade. Suspect 2nd ESRD. (4) Ureteral calculus, right: Plan: at the [facility]. 6mm. no hydronephrosis. I spoke with [facility] - they recommend outpatient f/u to discuss Rx options. (5) Pulmonary embolism: Plan: dx 1 month ago, [facility]. CHERI. on coumadin. INR now >5 today - cont to hold. Coumadin will always be challenging w/ him because of N/V. He follows with Dr Lennon - consider eliquis?? INR in am. (6) ESRD (end stage renal disease): Plan: [facility] consulted and HD needs appreciated. Schedule - M/W/F. (7) Dialysis patient: (8) Hypertension: Plan: Cont carvedilol 25 mg twice daily, losartan 100 mg daily, amlodipine 5 mg daily. uncontrolled - consider increase of norvasc to 5mg BID. (9) Nonischemic cardiomyopathy: Plan: Chronic systolic. EF 40-45%. Cont BB. Cont ARB. HD for volume control. (10) CAD (coronary artery disease): Plan: Lipitor. Non-obstructive. Cont BB. 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 cont lantus. cont novolog. pharmacy consulted and providing recs. Plan: PT consult Admission and Anticipated Discharge Date Admission Date: December 26, 2020 Subjective saw patient post-HD he has significant nausea and almost vomited while I was seeing him he asked for ativan; just had benadryl and was still having nausea no abd pain no dyspnea or orthopnea prior to HD was tolerating full liquids laying in bed most of the day tele wnl overnight Review of Systems Constitutional: no fever and no chills Respiratory: no cough Cardiovascular: no chest pain and no orthopnea Gastrointestinal: no abdominal pain and no diarrhea/loose stools Physical Exam Constitutional: no acute distress and no altered mental status ENMT: Mouth: + dry oral mucous membranes Respiratory: normal respiratory effort; no respiratory distress and not tachypneic Auscultation: + diminished lung sounds (left base ) Cardiovascular: Rate/Rhythm: regular rate and regular rhythm Heart Sounds: normal S1, normal S2 and + murmur (2/6 LUSB/LLSB ) Gastrointestinal (Abdomen): normal bowel sounds, soft, nontender, no hepatosplenomegaly Psychiatric: Orientation: alert and oriented x 3 Affect: + flat affect Results & Data Results & Data ([facility]) Vital Signs (Past 12 Hours) Vital Signs Temp Pulse Pulse Pulse Resp BP BP 12/28/20 19:40 36.6 C 84 16 173/64 H 12/28/20 15:50 80 12/28/20 15:15 36.8 C 84 16 180/80 H 12/28/20 14:26 37.0 C 90 16 185/83 H 12/28/20 13:14 36.5 C 86 196/97 H 12/28/20 13:10 86 196/97 H 12/28/20 12:40 88 196/102 H 12/28/20 12:20 88 196/100 H 12/28/20 12:00 87 197/96 H 12/28/20 11:40 86 194/92 H 12/28/20 11:20 87 190/91 H 12/28/20 11:00 87 202/96 H 12/28/20 10:40 86 202/97 H 12/28/20 10:20 84 194/98 H 12/28/20 10:00 83 185/101 H 12/28/20 09:40 86 184/88 H 12/28/20 09:26 82 191/92 H 12/28/20 09:20 36.5 C 82 Pulse Ox 12/28/20 19:40 95 12/28/20 15:50 12/28/20 15:15 96 12/28/20 14:26 94 12/28/20 13:14 12/28/20 13:10 12/28/20 12:40 12/28/20 12:20 12/28/20 12:00 12/28/20 11:40 12/28/20 11:20 12/28/20 11:00 12/28/20 10:40 12/28/20 10:20 12/28/20 10:00 12/28/20 09:40 12/28/20 09:26 12/28/20 09:20 Laboratory Results Laboratory Results - last 24 hr 12/27/20 12/28/20 12/28/20 20:35 07:59 09:18 PT 49.2 H INR 5.6 H* POC Glucose 121 H 125 H TSH 12/28/20 12/28/20 12/28/20 09:18 13:42 17:14 PT INR POC Glucose 81 168 H TSH 2.170 12/28/20 20:16 PT INR POC Glucose 107 H TSH PG Care Time/CCT Total # of Minutes Spent Total Time Spent with Patient: Total time spent is greater than 50% in coordination of care (as documented) at patient's floor/unit and/or counseling patient: Coding Level of Care Code 21601 Subseq Hosp Care Lvl 2 Diagnoses Gastroparesis K31.84 Pleural effusion J90 Pericardial effusion I31.3 Ureteral calculus, right N20.1 Pulmonary embolism I26.99 ESRD (end stage renal disease) N18.6 Dialysis patient Z99.2 Hypertension I10 Hypertension type: unspecified Nonischemic cardiomyopathy I42.8 CAD (coronary artery disease) I25.10 Associated angina: without angina Coronary Disease-Associated Artery/Lesion type: [place] artery [place] vs. 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 transplanted heart: [place] heart Qualified Code(s): I25.10 - Atherosclerotic heart disease of [place] coronary artery without angina pectoris (2) Hypertension Hypertension type: unspecified Qualified Code(s): I10 - Essential (primary) hypertension
[2020-12-28] MEDS: MELATONIN 3 MG TAB PO SCH (21:21)
[2020-12-29] MEDS: CHOLECALCIFEROL 1,000 UNITS 25 MCG TAB PO SCH (08:22)
[2020-12-29] MEDS: ATORVASTATIN 10 MG TAB PO SCH (08:22)
[2020-12-29] MEDS: SERTRALINE HCL 100 MG TABLET PO SCH (08:22)
[2020-12-29] MEDS: amLODIPine BESYLATE 5 MG TAB PO SCH (08:22)
[2020-12-29] MEDS: LOSARTAN POTASSIUM 50 MG TAB PO SCH (08:22)
[2020-12-29] MEDS: NEPHROCAPS PO SCH (08:22)
[2020-12-29] MEDS: carvediloL 25 MG TAB PO SCH ×2 (08:22→17:27)
[2020-12-29] MEDS: buPROPion SR 100 MG TABCR PO SCH (08:22)
[2020-12-29] MEDS: INSULIN ASPART 100 UNITS/ML 3 ML PEN SC SCH ×4 (08:23→21:18)
[2020-12-29] MEDS: PANTOprazole 40 MG TAB PO SCH ×2 (08:23→21:17)
[2020-12-29 09:02] LABS: Hematocrit (blood only) 40.5 % (42-52); Hemoglobin 12.9 g/dL (14.0-18.0); Mean Corpuscular Hemoglobin 31.6 pg (25-34); Mean Corpuscular Hgb Conc 31.9 g/dL (32-36); Mean Corpuscular Volume 99.3 fL (80-100); Mean Platelet Volume 8.9 fL (7.4-10.4); Platelet Count 384 K/uL (130-400); RDW Coefficient of Variation 14.3 % (11.5-14.5); RDW Standard Deviation 51.4 fL (36.4-46.3); Red Blood Count 4.08 M/uL (4.7-6.1); White Blood Count 8.99 K/uL (4.8-10.8)
[2020-12-29 09:12] LABS: INR 3.1 (0.9-1.1); Prothrombin Time 28.7 Seconds (9.0-12.0)
--- NOTE | 2020-12-29 13:03 | Nephrology Progress Note ---
Date of Service December 29, 2020 Assessment & Plan (1) ESRD (end stage renal disease): Plan: Patient with ESRD on dialysis Thursday. He had dialysis yeste which was uneventful. Electrolytes are stable no signs of volume overload. No indication for dialysis today. Next dialysis will be Thursday and this can be as an outpatient. (2) Hypertension: Plan: Blood pressure is acceptable. Continue current regimen including amlodipine, losartan and Coreg 25 mg twice daily. Admission and Anticipated Discharge Date Admission Date: December 28, 2020 Subjective Patient is seen in follow-up for ESRD. He denies any nausea or vomiting today. He is eating well. No diarrhea. Patient had dialysis yesterday. Review of Systems Constitutional: no fever and no chills Respiratory: no cough Cardiovascular: no chest pain and no orthopnea Gastrointestinal: no abdominal pain and no diarrhea/loose stools Physical Exam Physical Exam: General exam: Appears comfortable, no acute distress HEENT: Pupils are equal and reactive to light Neck: No JVD, neck is supple trachea is midline Respiratory system: Clear breath sounds bilaterally. Gastrointestinal: Abdomen is soft, non distended, non tender, bowel sounds are present CVS: Regular rate and rhythm. No murmurs, rubs or gallops Musculoskeletal: No joint or muscle tenderness Extremities: Non tender, no edema, peripheral pulses are present Neuro: Oriented, no tremors, no focal neurological deficits Skin: No rashes Access: Left upper arm AV fistula with good bruit Results & Data ([facility]) Vital Signs (Past 12 Hours) Vital Signs Temp Pulse Pulse Pulse Resp BP Pulse Ox 12/29/20 11:50 36.7 C 75 17 160/78 H 98 12/29/20 07:50 36.6 C 72 17 150/70 H 98 12/29/20 07:00 74 12/29/20 02:55 36.3 C L 80 16 177/75 H 96 Laboratory Results 12/27/20 05:37 12/29/20 08:43 WBC 8.99 RBC 4.08 L MCV 99.3 MCH 31.6 MCHC 31.9 L RDW Std Deviation 51.4 H RDW Coeff of Kami 14.3 Plt Count 384 MPV 8.9 (1) Hypertension Hypertension type: unspecified Qualified Code(s): I10 - Essential (primary) hypertension
[2020-12-29] MEDS: INSULIN GLARGINE SOLOSTAR 100 UNITS/ML 3 ML PEN SC SCH (15:28)
[2020-12-29] MEDS: MELATONIN 3 MG TAB PO SCH (21:17)
--- NOTE | 2020-12-29 22:38 | Hospitalist Progress Note ---
Date of Service December 29, 2020 Assessment & Plan (1) Gastroparesis: Plan: N/V 2nd to such. resolved. advance diet to T1DM/ESRD diet. Moving right-sided 6mm stone could have also caused symptoms but less likely given the lack of hydronephrosis, etc. Cont PPI bid. (2) Pleural effusion: Plan: Left-sided pleural effusion. s/p thoracentesis last month in [facility]. obtained records - total protein from fluid 2.7; cytologies negative. no elevated wbcs. The effusion is rather large and may merit another thoracentesis. Hold coumadin. Await INR to be lower. Consult pulmonary when INR is <2, or if he discharges will set up as outpatient. repeat cxr am (3) Pericardial effusion: Plan: Echo performed this admission - effusion is smaller than last study. No evidence of tamponade. Suspect 2nd ESRD. (4) Ureteral calculus, right: Plan: at the [facility]. 6mm. no hydronephrosis. I spoke with [facility] - they recommend outpatient f/u to discuss Rx options. (5) Pulmonary embolism: Plan: dx 1 month ago, [facility]. CHERI. on coumadin. INR 3.1 - repeat am. Coumadin will always be challenging w/ him because of N/V. He follows with Dr Lennon - consider eliquis?? hold coumadin again today. (6) ESRD (end stage renal disease): Plan: [facility] Nephrology consulted and HD needs appreciated. Schedule - M/W/F. (7) Dialysis patient: (8) Hypertension: Plan: Cont carvedilol 25 mg twice daily, losartan 100 mg daily, amlodipine 5 mg daily. uncontrolled - consider increase of norvasc to 5mg BID. (9) Nonischemic cardiomyopathy: Plan: Chronic systolic. EF 40-45%. Cont BB. Cont ARB. HD for volume control. (10) CAD (coronary artery disease): Plan: Lipitor. Non-obstructive. Cont BB. 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 cont lantus. cont novolog. watch for spikes once regular diet resumed. Plan: PT consult to ensure safe for home Admission and Anticipated Discharge Date Admission Date: December 28, 2020 Subjective patient "feeling real good today - well enough to go home" no nausea/emesis tolerating fulls - wants regular food no abd pain no dyspnea I took off his O2 during the visit - sats 90% in room air 1 L NC O2 placed back -- sats 93% mother at bedside questions answered Review of Systems Review of Systems: gen - no fever, no chills abd - no pain CV - no chest pain pulm - no cough, denies dyspnea Physical Exam Constitutional: no acute distress and no altered mental status ENMT: external ear and nose normal, oropharynx normal Respiratory: normal respiratory effort; no respiratory distress and not tachypneic Auscultation: + diminished lung sounds (left base ) Cardiovascular: Rate/Rhythm: regular rate and regular rhythm Heart Sounds: normal S1, normal S2 and + murmur (2/6 LUSB/LLSB ) Gastrointestinal (Abdomen): normal bowel sounds, soft, nontender, no hepatosplenomegaly Psychiatric: Orientation: alert and oriented x 3 Results & Data Results & Data ([facility]) Vital Signs (Past 12 Hours) Vital Signs Temp Pulse Pulse Resp BP Pulse Ox 12/29/20 19:56 37.1 C 79 20 147/70 H 93 12/29/20 15:59 75 12/29/20 15:32 36.8 C 77 16 151/74 H 96 12/29/20 11:50 36.7 C 75 17 160/78 H 98 Laboratory Results Laboratory Results - last 24 hr 12/29/20 12/29/20 12/29/20 07:35 08:43 08:43 WBC 8.99 RBC 4.08 L Hgb 12.9 L Hct 40.5 L MCV 99.3 MCH 31.6 MCHC 31.9 L RDW Std Deviation 51.4 H RDW Coeff of Kami 14.3 Plt Count 384 MPV 8.9 PT 28.7 H INR 3.1 H POC Glucose 92 12/29/20 12/29/20 12/29/20 11:38 16:45 20:32 WBC RBC Hgb Hct MCV MCH MCHC RDW Std Deviation RDW Coeff of Kami Plt Count MPV PT INR POC Glucose 140 H 220 H 235 H PG Care Time/CCT Total # of Minutes Spent Total Time Spent with Patient: Total time spent is greater than 50% in coordination of care (as documented) at patient's floor/unit and/or counseling patient: Coding Level of Care Code 39882 Subseq Hosp Care Lvl 2 Diagnoses Gastroparesis K31.84 Pleural effusion J90 Pericardial effusion I31.3 Ureteral calculus, right N20.1 Pulmonary embolism I26.99 ESRD (end stage renal disease) N18.6 Dialysis patient Z99.2 Hypertension I10 Hypertension type: unspecified Nonischemic cardiomyopathy I42.8 CAD (coronary artery disease) I25.10 Associated angina: without angina Coronary Disease-Associated Artery/Lesion type: [place] artery [place] vs. transplanted heart: 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 artery [place] vs. transplanted heart: [place] heart Qualified Code(s): I25.10 - Atherosclerotic heart disease of [place] coronary artery without angina pectoris (2) Hypertension Hypertension type: unspecified Qualified Code(s): I10 - Essential (primary) hypertension
[2020-12-30] MEDS ORDERED: INSULIN GLARGINE SOLOSTAR 100 UNITS/ML 3 ML PEN SC SCH ×2 (08:10→09:00)
[2020-12-30] MEDS: PANTOprazole 40 MG TAB PO SCH ×2 (08:11→21:21)
[2020-12-30] MEDS: buPROPion SR 100 MG TABCR PO SCH (08:11)
[2020-12-30] MEDS: carvediloL 25 MG TAB PO SCH ×2 (08:11→16:46)
[2020-12-30] MEDS: amLODIPine BESYLATE 5 MG TAB PO SCH (08:11)
[2020-12-30] MEDS: SERTRALINE HCL 100 MG TABLET PO SCH (08:11)
[2020-12-30] MEDS: LOSARTAN POTASSIUM 50 MG TAB PO SCH (08:11)
[2020-12-30] MEDS: ATORVASTATIN 10 MG TAB PO SCH (08:11)
[2020-12-30] MEDS: CHOLECALCIFEROL 1,000 UNITS 25 MCG TAB PO SCH (08:12)
[2020-12-30] MEDS: NEPHROCAPS PO SCH (08:12)
[2020-12-30] MEDS: INSULIN ASPART 100 UNITS/ML 3 ML PEN SC SCH ×4 (08:34→21:20)
[2020-12-30 08:42] LABS: INR 2.3 (0.9-1.1); Prothrombin Time 21.9 Seconds (9.0-12.0)
[2020-12-30] MEDS ORDERED: INSULIN HUMAN REGULAR PER UNIT 3 UNITS in SYRINGE 2.97 ML IV ONE (08:45)
--- NOTE | 2020-12-30 09:16 | XRay Report ---
XR chest 2V PA/lateral CLINICAL HISTORY: L pleural effusion, interval change COMPARISON STUDY: December 26, 2020 FINDINGS: No pneumothorax. Interval worsening of the left pleural effusion, now appear severe and associated with minimal midlin e shift to the contralateral side. Air bronchograms are seen within dense opacity at the left lower h emithorax which could represent atelectasis or infiltrate. Cardiomediastinal silhouette is prominent and partially obscured on the left. Minimal pulmonary vascular congestion.. Osseous structures: unremarkable IMPRESSION: 1. Interval worsening of the left pleural effusion associated with atelectasis or infiltrate at the left lower lung and minimal midline shift to the right side. Findings will be called to patient's uni t. ACT 112: Negative or not required by law. The above report was generated using voice recognition software. It may contain grammatical, syntax o r spelling errors. Electronically signed by: Cristina Wong DO 12/30/2020 9:15 AM
--- NOTE | 2020-12-30 10:29 | Pulmonary Consultation ---
Date of Consultation December 30, 2020 Assessment & Plan (1) Pleural effusion: 50-year-old male with a history of recent pulmonary embolism, ESRD on hemodialysis, diabetes mellitus type 1 and gastroparesis who presented to the hospital due to cyclical vomiting. Large left pleural effusion: This was previously tapped at [facility] on 11/16/2020. A transudate was seen likely related to ESRD and heart failure. The effusion has recurred. We will plan for thoracentesis once INR is below 2.0. He may need more definitive management if this continues to recur such as Pleurx catheter placement with or without chemical pleurodesis versus pigtail catheter placement with chemical pleurodesis versus surgery. He will need to be bridged with heparin once his INR level drops below 2.0 given his recent pulmonary embolism. Thank you for the consult. Pulmonary continue to follow along with you. (2) Pulmonary embolism: (3) Anticoagulated on warfarin: History of Present Illness Reason for Consultation: Left pleural effusion Attending Physician: Guevara Townsend History of Present Illness 50-year-old male with history of type 1 diabetes mellitus, ESRD on hemodialysis, diastolic heart failure and recent pulmonary embolism (11/15/2020) who is presenting to the hospital due to cyclic vomiting thought to be from gastroparesis. He was recently discharged from [facility] in [facility] last month. He underwent a thoracentesis there on 11/16/2020 which yielded 900 cc of pleural fluid. This was determined to be a transudate. He was seen by pulmonary medicine in [place]. On 11/15/2020, he was found to have a PE and a left acute segmental pulmonary emboli in the left upper lobe. He was started on heparin drip. Following day he underwent thoracentesis by pulmonology. Pleural fluid cytology noted reactive mesothelial cells, macrophages and mixed inflammatory cells. Pleural fluid glucose was 181, LDH 98, total protein 2.7 and amylase 12. Notably he has a history of PFTs in 2019 which demonstrated FEV1/FVC ratio 83. FEV1 was 96%, 3.71 L FVC 92% TLC 103% RV/TLC 132% DLCO 16% Echo completed here on 12/27/2020 with an EF of 40 to 45%. Small posterior pericardial effusion noted. Right ventricle was deemed normal in size and function. RV pressure/volume overloaded was noted.. The inferior vena cava was severely dilated. Patient's INR level is currently 2.3. His INR level was elevated to 5.6 and 12/28/2020. His warfarin has been held. Platelet count of 384,000. BUN is 31. Allergies Allergy/AdvReac Type Severity Reaction Status Date / Time shellfish derived Allergy Severe anaphylaxis Verified 12/11/20 13:28 codeine Allergy Intermediate Hives Verified 12/11/20 13:28 promethazine Allergy Intermediate itchy/hives Verified 12/11/20 13:28 Home Medications Medication Instructions Recorded Confirmed Type bupropion HCl 100 mg tablet,12 hr 100 mg PO QAM ea 04/14/19 12/26/20 History sustained-release lorazepam 0.5 mg tablet 0.5 mg PO Q12 PRN tab 07/25/19 12/26/20 History pantoprazole 40 mg tablet,delayed 40 mg PO BID 07/09/20 12/26/20 History release melatonin 3 mg tablet 3 mg PO HS tab 09/05/20 12/26/20 History acetaminophen 325 mg capsule 650 mg PO Q4H PRN cap 09/28/20 12/26/20 History carvedilol 25 mg tablet 25 mg PO BIDM tab 10/01/20 12/26/20 History ondansetron HCl 4 mg tablet 4 mg PO Q4H PRN 10/01/20 12/26/20 History (Zofran) atorvastatin 10 mg tablet 10 mg PO DAILY 11/29/20 12/26/20 History bisacodyl 10 mg rectal suppository 10 mg [place] DAILY PRN 11/29/20 12/26/20 History cholecalciferol (vitamin D3) 50 50 mcg PO DAILY 11/29/20 12/26/20 History mcg (2,000 unit) capsule (Vitamin D3) darbepoetin jessee-albumin 60 60 mcg WK 11/29/20 12/26/20 History mcg/0.3 mL in albumin injection syringe hydrocortisone 1 % topical cream 1 applic TOPICAL Q6H PRN 11/29/20 12/26/20 History losartan 100 mg tablet 100 mg PO DAILY 11/29/20 12/26/20 History polyethylene glycol 3350 17 17 g PO QDL PRN 11/29/20 12/26/20 History gram/dose oral powder (Miralax) sodium chloride 0.9 % 1,000 ml IV DIRECTED PRN 11/29/20 12/26/20 History vitamin B complex and vitamin C 1 cap PO DAILY 11/29/20 12/26/20 History no.20-folic acid 1 mg capsule amlodipine 5 mg tablet 5 mg PO DAILY #90 tab 12/07/20 12/26/20 Rx sertraline 100 mg tablet 100 mg PO QAM #90 tab 12/11/20 12/26/20 Rx insulin aspart U-100 100 unit/mL 5 unit SUBCUT TIDM PRN 12/21/20 12/26/20 History (3 mL) subcutaneous pen (Novolog Flexpen U-100 Insulin aspart) insulin glargine 100 unit/mL (3 12 unit SUBCUT QAM ml 12/21/20 12/26/20 History mL) subcutaneous pen (Basaglar KwikPen U-100 Insulin) warfarin 5 mg tablet See Rx Instructions PO UD tab 12/24/20 12/26/20 History Patient History Medical History Anemia Anemia of chronic disease Anxiety AV fistula left arm CAD (coronary artery disease) mild, non-obstructive CAD per 10/2018 cardiac cath> [facility] Depression Diabetic retinopathy Dialysis patient DKA (diabetic ketoacidoses) Esophagitis ESRD (end stage renal disease) M,W,F (Follows with Dr. Taylor Higgins; [facility] Gastroparesis GERD (gastroesophageal reflux disease) Hematemesis Hypertension Intractable vomiting with nausea Kidney stones Lumbar compression fracture Lumbar radiculopathy Peripheral neuropathy Retinopathy due to secondary diabetes Severe protein-calorie malnutrition Vomiting Surgical History H/O shoulder surgery RIGHT History of appendectomy History of cardiac cath 10/2018= no stents, no obstructive disease (at [facility]) History of cataract surgery History of esophagogastroduodenoscopy (EGD) (~03/08/20) History of hip surgery left HIP ARTHROSCOPY History of lithotripsy History of open reduction and internal fixation (ORIF) procedure right hip Nausea and vomiting after administration of anesthetic agent Permanent central venous catheter in place Permacath has been removed S/P arteriovenous (AV) fistula creation Family History Grandfather Myocardial infarction Grandfather (Maternal) Family history of diabetes mellitus Uncle Myocardial infarction Other No family history of adverse response to anesthesia Denies family history of Colon cancer Ovarian cancer Prostate cancer Breast cancer Social History Smoking Status: Never smoker Second Hand Exposure: No; Do You Dip or Chew Tobacco: Yes (used to.[place] quit date); Tobacco Cessation Education Requested by Patient: No Hx Alcohol Use: No Hx Substance Use: No Preferred Language: Italian Communication Ability: Effective Visual Impairment: No Limitations Hearing Ability: Normal Forensic Photographer Required: No Beliefs That Will Affect Care: None marital status: Current Living Situation: Parent Current Living Situation Comment: lives with parents. current occupational status: disabled How many Children do You have: 2 Other Information That Helps Us Care for You: No Feels Safe at Home: Yes Safety Concerns: Feels Safe At This Time Childhood Exposure to Second-Hand Smoke: Yes Dental Care, Regularly: No Physical Activity Frequency: 1-2 Times per Week Seatbelt Use: always Sunscreen Use: No Assistive Devices: Oxygen - Continuous Review of Systems Review of Systems: All systems reviewed & are unremarkable except as noted in HPI & below Physical Exam Physical Exam: Constitutional: Patient appears to be of their stated age. Patient is in no apparent distress. Patient is well-developed. Eyes: Pupils are equal round and reactive to light. Conjunctivae are normal. Anicteric sclera. Neck: Trachea is midline. Visual inspection is normal. Respiratory: Diminished lung sounds on the left. Cardiovascular: Regular rate and rhythm. No murmurs. No edema. Gastrointestinal: Normal bowel sounds, soft, nontender and nondistended. No hepatosplenomegaly noted. Musculoskeletal: No cyanosis. Patient is able to move all extremities. Strength is 5 out of 5 in the upper and lower extremities. Skin: No rashes, warm dry and intact. Neurologic: No obvious focal neurological deficits seen. Psychiatric: Alert and oriented x3 with a euthymic affect. Results & Data Results & Data ([facility]) Vital Signs (Past 12 Hours) Vital Signs Temp Pulse Pulse Resp BP Pulse Ox 12/30/20 07:27 97.3 F L 78 17 160/80 H 95 12/30/20 07:10 80 12/30/20 04:06 98.1 F 82 20 159/75 H 93 12/29/20 23:12 98.2 F 96 H 20 105/55 L 92 12/29/20 22:20 97 H Vital signs, labs and imaging personally reviewed PG Care Time/CCT Total # of Minutes Spent Total Time Spent with Patient: Total time spent is greater than 50% in coordination of care (as documented) at patient's floor/unit and/or counseling patient: Coding Level of Care Code 77286 Inpt Consult Level 4 Diagnoses Pleural effusion J90 Pulmonary embolism I26.99 Anticoagulated on warfarin Z79.01
--- NOTE | 2020-12-30 11:18 | Nephrology Progress Note ---
Date of Service December 30, 2020 Assessment & Plan (1) ESRD (end stage renal disease): Plan: Patient with ESRD on dialysis Thursday. He had dialysis Thursday which was uneventful. Electrolytes are stable no signs of volume overload. No indication for dialysis today. Next dialysis will be Thursday and this can be as an outpatient. (2) Hypertension: Plan: Blood pressure is acceptable. Continue current regimen including amlodipine, losartan and Coreg 25 mg twice daily. Admission and Anticipated Discharge Date Admission Date: December 28, 2020 Subjective Seen in follow-up for ESRD. No shortness of breath. No leg swelling. No vomiting today. Blood sugar high earlier but improving. Review of Systems Review of Systems: All other systems were reviewed and negative except as noted in HPI Physical Exam Physical Exam: General exam: Appears comfortable, no acute distress HEENT: Pupils are equal and reactive to light Neck: No JVD, neck is supple trachea is midline Respiratory system: Clear breath sounds bilaterally. Gastrointestinal: Abdomen is soft, non distended, non tender, bowel sounds are present CVS: Regular rate and rhythm. No murmurs, rubs or gallops Musculoskeletal: No joint or muscle tenderness Extremities: Non tender, no edema, peripheral pulses are present Neuro: Oriented, no tremors, no focal neurological deficits Skin: No rashes Results & Data ([facility]) Vital Signs (Past 12 Hours) Vital Signs Temp Pulse Pulse Resp BP Pulse Ox 12/30/20 07:27 36.3 C L 78 17 160/80 H 95 12/30/20 07:10 80 12/30/20 04:06 36.7 C 82 20 159/75 H 93 Laboratory Results 12/27/20 05:37 (1) Hypertension Hypertension type: unspecified Qualified Code(s): I10 - Essential (primary) hypertension
--- NOTE | 2020-12-30 15:38 | Pharmacy Report ---
Pharmacy Glycemic Short Note 2 - Date of Service December 30, 2020 - Glycemic Short BSG Results (Last 24 hours): 12/29/20 12/29/20 12/30/20 16:45 20:32 07:36 POC Glucose 220 H 235 H 503 H* 12/30/20 12/30/20 12/30/20 07:37 10:28 11:40 POC Glucose 472 H* 421 H* 260 H OUTPATIENT ANTIDIABETIC REGIMEN: * Lantus 12 units SC AM * Novolog CR 30 over 150 mg/dL; carbohydrate ratio of 10 * HbA1c pending ASSESSMENT: 12/30/20: * Patient developed persistent hyperglycemia starting last evening. Exact cause is unknown but it could be related to resuming a diet yesterday. * Fasting BSG of 503 with repeat of 472 mg/dL. Lantus was increased and patient was given an IV insulin bolus. * Tighten carb coverage for post prandial hyperglycemia. * Conservative changes made due to history of fluctuating glycemic control and gastroparesis. 12/27/20 * BSGs overnight was 331-250 mg/dL. Fasting BSG is 88 mg/dL-49 mg/dL. Patient received Lantus 12 units on 12/26/20 (confirmed no home dose of Lantus Thursday AM) plus 9 units of Novolog overnight. No subsequent insulin dosing since 0400. * Patient had hypoglycemia episode at lunchtime due to lack of PO intake at breakfast time. * Work towards resuming Lantus in the morning. * Novolog scale that is looser since Lantus is being shifted earlier. Background * 50 yo M admitted overnight secondary to intractable nausea and vomiting. Pharmacy has been consulted to assist with inpatient glycemic management. Patient is a Type 1 Diabetic that is well know to pharmacy's glycemic service. * Admission BSG was 77 mg/dL this AM. It was unknown if patient took his AM dose of Lantus. Next BSG was not taken until almost 2100. It was 290 mg/dL and no insulin was ordered at that time. * Pharmacy was consulted around 2300 when BSG was 305 mg/dL with a repeat of 331 mg/dL. * Gave 12 units of Lantus at this time (home dose) * Started Novolog based on previous admission data. * Added overnight check to ensure BSG is trending downward PLAN FOR INPATIENT GLYCEMIC CONTROL: * Basal insulin * Lantus 14 units SQ daily * Bolus insulin * NovoLog per scale ACHS or Q6hrs while NPO * Goal Range: Low 110 mg/dL - High 150 mg/dL * Correction Factor: 40 mg/dL/unit * Nutritional / Prandial insulin per carb ratio of 1 unit per 9 grams CHO consumed PLAN FOR DISCHARGE: * To be determined
[2020-12-30] MEDS: MELATONIN 3 MG TAB PO SCH (21:21)
[2020-12-30] MEDS: LORazepam 0.5 MG TAB PO PRN (21:57)
--- NOTE | 2020-12-30 22:59 | Hospitalist Progress Note ---
Date of Service December 30, 2020 Assessment & Plan (1) Gastroparesis: Plan: Gastroparesis/cyclic vomiting "flare." N/V 2nd to above - now resolved. advanced diet to T1DM/ESRD diet yesterday and has tolerated such. Moving right-sided 6mm stone could have also caused symptoms but less likely given the lack of hydronephrosis, etc. Cont PPI bid. (2) Pleural effusion: Plan: Left-sided pleural effusion. s/p thoracentesis last month in [facility]. obtained records - total protein from fluid 2.7; cytologies negative. no elevated wbcs. Thus - transudative. The effusion is large and has gotten even worse during this stay based on cxr this am. Appreciate pulmonary consult. Plan is for thoracentesis tomorrow if INR <2. Cont to hold coumadin. INR am. (3) Pericardial effusion: Plan: Echo performed this admission - effusion is smaller than last study. No evidence of tamponade. Suspect 2nd ESRD. (4) Ureteral calculus, right: Plan: at the [facility]. 6mm. no hydronephrosis. I spoke with [facility] - they recommend outpatient f/u to discuss Rx options. (5) Pulmonary embolism: Plan: dx 1 month ago, [facility]. CHERI. on coumadin. [facility]. I spoke with Dr Lennon today - she recommends a total weekly dose of about 27.5mg (~4mg each day). Holding coumadin at this time, however, for thoracentesis. Following his procedure resume coumadin. (6) ESRD (end stage renal disease): Plan: [facility] consulted and HD needs appreciated. Schedule - M/W/F. (7) Dialysis patient: (8) Hypertension: Plan: Cont carvedilol 25 mg twice daily, losartan 100 mg daily, amlodipine 5 mg daily. uncontrolled - consider increase of norvasc to 5mg BID. (9) Nonischemic cardiomyopathy: Plan: Chronic systolic. EF 40-45%. Cont BB. Cont ARB. HD for volume control. See above re: pleural effusion. (10) CAD (coronary artery disease): Plan: Lipitor. Non-obstructive. Cont BB. 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 adjust lantus adjust novolog most recent a1c 6.9% Plan: PT consult completed - safe to return home w/ his parents Admission and Anticipated Discharge Date Admission Date: December 28, 2020 Subjective tele overnight - NSR, or episodes of what appears to be sinus tach patient feeling "really good" today minor dyspnea with walking no pleuritic pain over left chest denies orthopnea eating well - tolerating regular food w/o N/V did have a fairly normal BM today Review of Systems Review of Systems: gen - no fever, no chills, no anorexia; mild fatigue only CV - denies having had any palpitations; no chest pain pulm - no cough GI - denies emesis - does not make urine; no flank pain Physical Exam Physical Exam: gen - NAD, restricted affect; overall looks good today mouth - MMM neck - no JVD heart - RRR, s1 s2, 2/6 GOKUL LSB lungs - severely decreased BS left base extending into the left upper posterior chest; right lung CTA abd - soft, NT, ND, BS+, no HSM ext - no edema, pulses 2+ b/l; LUE AV fistula present psych - a/o x 3 Results & Data Results & Data ([facility]) Vital Signs (Past 12 Hours) Vital Signs Temp Pulse Pulse Pulse Resp BP Pulse Ox 12/30/20 19:27 36.9 C 78 18 151/72 H 93 12/30/20 15:16 78 12/30/20 11:46 36.7 C 76 18 150/70 H 96 Laboratory Results Laboratory Results - last 24 hr 12/30/20 12/30/20 12/30/20 07:36 07:37 07:50 PT 21.9 H INR 2.3 H POC Glucose 503 H* 472 H* 12/30/20 12/30/20 12/30/20 10:28 11:40 16:34 PT INR POC Glucose 421 H* 260 H 170 H 12/30/20 21:17 PT INR POC Glucose 134 H Diagnostic Findings Chest X-Ray 12/30/20 08:22 XR chest 2V PA/lateral CLINICAL HISTORY: L pleural effusion, interval change COMPARISON STUDY: December 26, 2020 FINDINGS: No pneumothorax. Interval worsening of the left pleural effusion, now appear severe and associated with minimal midline shift to the contralateral side. Air bronchograms are seen within dense opacity at the left lower hemithorax which could represent atelectasis or infiltrate. Cardiomediastinal silhouette is prominent and partially obscured on the left. Minimal pulmonary vascular congestion.. Osseous structures: unremarkable IMPRESSION: 1. Interval worsening of the left pleural effusion associated with atelectasis or infiltrate at the left lower lung and minimal midline shift to the right side. Findings will be called to patient's unit. ACT 112: Negative or not required by law. The above report was generated using voice recognition software. It may contain grammatical, syntax or spelling errors. Electronically signed by: Cristina Wong DO 12/30/2020 9:15 AM PG Care Time/CCT Total # of Minutes Spent Total Time Spent with Patient: Total time spent is greater than 50% in coordination of care (as documented) at patient's floor/unit and/or counseling patient: Coding Level of Care Code 59246 Subseq Hosp Care Lvl 2 Diagnoses Gastroparesis K31.84 Pleural effusion J90 Pericardial effusion I31.3 Ureteral calculus, right N20.1 Pulmonary embolism I26.99 ESRD (end stage renal disease) N18.6 Dialysis patient Z99.2 Hypertension I10 Hypertension type: unspecified Nonischemic cardiomyopathy I42.8 CAD (coronary artery disease) I25.10 Coronary Disease-Associated Artery/Lesion type: [place] artery [place] vs. 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 transplanted heart: [place] heart Associated angina: without angina Qualified Code(s): I25.10 - Atherosclerotic heart disease of [place] coronary artery without angina pectoris
[2020-12-31] MEDS: ONDANSETRON INJ 2 MG/ML 2 ML VIAL IV PRN ×2 (01:34→07:54)
[2020-12-31] MEDS: diphenhydrAMINE 50 MG/ML VIAL IV PRN (01:34)
[2020-12-31] MEDS: PROCHLORPERAZINE 10 MG in SYRINGE 8 ML IV PRN (05:04)
[2020-12-31] MEDS: amLODIPine BESYLATE 5 MG TAB PO SCH (07:47)
[2020-12-31] MEDS: carvediloL 25 MG TAB PO SCH ×2 (07:47→16:58)
[2020-12-31] MEDS: LOSARTAN POTASSIUM 50 MG TAB PO SCH (07:47)
[2020-12-31] MEDS: PANTOprazole 40 MG TAB PO SCH ×2 (07:48→21:08)
[2020-12-31 08:02] LABS: Hematocrit (blood only) 38.9 % (42-52); Hemoglobin 12.6 g/dL (14.0-18.0); Mean Corpuscular Hemoglobin 31.2 pg (25-34); Mean Corpuscular Hgb Conc 32.4 g/dL (32-36); Mean Corpuscular Volume 96.3 fL (80-100); Mean Platelet Volume 8.8 fL (7.4-10.4); Platelet Count 418 K/uL (130-400); RDW Coefficient of Variation 13.8 % (11.5-14.5); RDW Standard Deviation 49.3 fL (36.4-46.3); Red Blood Count 4.04 M/uL (4.7-6.1); White Blood Count 9.48 K/uL (4.8-10.8)
[2020-12-31 08:09] LABS: INR 1.6 (0.9-1.1); Prothrombin Time 15.5 Seconds (9.0-12.0)
[2020-12-31] MEDS ORDERED: INSULIN GLARGINE SOLOSTAR 100 UNITS/ML 3 ML PEN SC ONE (08:30)
[2020-12-31] MEDS: buPROPion SR 100 MG TABCR PO SCH (08:41)
[2020-12-31] MEDS: NEPHROCAPS PO SCH (08:41)
[2020-12-31] MEDS: SERTRALINE HCL 100 MG TABLET PO SCH (08:41)
[2020-12-31] MEDS: ATORVASTATIN 10 MG TAB PO SCH (08:41)
[2020-12-31] MEDS: CHOLECALCIFEROL 1,000 UNITS 25 MCG TAB PO SCH (08:42)
[2020-12-31] MEDS: INSULIN ASPART 100 UNITS/ML 3 ML PEN SC SCH ×4 (08:42→21:07)
[2020-12-31 08:47] LABS: BUN Creatinine Ratio 7.8 (10-20); Calcium 8.1 mg/dl (8.5-10.1); Creatinine Clr Calc Pharmacy 12.6 ml/min; Est GFR (African American) 9.6 ml/min; Est GFR (Non-African American) 8.3 ml/min; Potassium 5.3 mmol/L (3.5-5.1)
[2020-12-31] MEDS ORDERED: HEPARIN SOD (PORCINE) 1000 UNIT/ML IV ONE (09:00)
[2020-12-31] MEDS ORDERED: SODIUM CHLORIDE 0.9% 1000ML 1,000 ML IV PRN (09:00)
[2020-12-31 09:20] LABS: Beta-Hydroxybutyrate 12.98 mg/dl (0.2-2.81)
[2020-12-31] MEDS: LORazepam 0.5 MG TAB PO PRN (09:45)
--- NOTE | 2020-12-31 10:18 | Pulmonology Progress Note ---
Date of Service December 31, 2020 Assessment & Plan (1) Pleural effusion: Plan: 50-year-old male with a history of recent pulmonary embolism, ESRD on hemodialysis, diabetes mellitus type 1 and gastroparesis who presented to the hospital due to cyclical vomiting. --Left-sided pleural effusion Likely underlying etiology is end-stage renal disease Patient had thoracentesis done at [facility] 11/16/2020 which was transudative. Plan will be to have thoracentesis done on this admission once the INR is less than 1.7. Would recommend bridging with heparin drip once INR goes below 2 --Recent history of PE On warfarin --End-stage renal disease Plan as per nephrology Plan: INR today is 1.6. We will perform thoracentesis later in the afternoon today. Recommend good control of blood pressure that might also be one of the reason the patient is having nausea. Can consider IV medications Risk and benefit of the procedure explained to the patient. He understands and agrees to go ahead with the procedure Consent signed, witnessed and put in the chart Please note the above document was generated using voice recognition software. It may contain grammatical, syntax or spelling errors.Any formal questions or concerns about the content, text or information contained within the body of this dictation should be directly addressed to the provider for clarification. (2) Pulmonary embolism: (3) Anticoagulated on warfarin: Admission and Anticipated Discharge Date Admission Date: December 28, 2020 Subjective Patient seen and examined at bedside. No acute distress. Orders events overnight. Patient still complains of nausea. Has not been throwing up. Denies any belly pain. Denies any issues with breathing. No chest pain, no shortness of breath. No fever or chills. Review of Systems Review of Systems: All systems reviewed & are unremarkable except as noted in Subjective Physical Exam Physical Exam: Constitutional: No acute distress HEENT: EOMI, PERRLA Respiratory system: Decreased air entry bilaterally more decreased on the left side, no wheeze, rhonchi, mild crackles left side CVS: S1-S2 positive, no murmurs or gallops Abdomen: Soft, nontender, nondistended, positive bowel sounds x4 Extremities: +2 pulses bilaterally radialis/ dorsalis pedis, no cyanosis, no edema, left arm AV fistula Neuro: Awake alert oriented x3 Psych: Normal mood and affect G/U: No Lee Skin: no rashes, warm and dry Lymphatic: no cervical or axillary lymphadenopathy Results & Data Results & Data ([facility]) Vital Signs (Past 12 Hours) Vital Signs Temp Pulse Pulse Resp BP Pulse Ox 12/31/20 08:11 37.1 C 83 19 211/86 H 93 12/31/20 07:10 82 12/31/20 03:23 36.6 C 80 18 182/82 H 93 12/31/20 00:23 77 12/30/20 23:06 36.9 C 81 18 131/64 91 12/31/20 07:32 12/31/20 07:32 PG Care Time/CCT Total # of Minutes Spent Total Time Spent with Patient: Total time spent is greater than 50% in coordination of care (as documented) at patient's floor/unit and/or counseling patient: Coding [place] [address] Subseq Hosp Care Lvl 3 Patient Type Established Diagnoses Pleural effusion J90 Pulmonary embolism I26.99 Anticoagulated on warfarin Z79.01
--- NOTE | 2020-12-31 10:49 | Dialysis Progress Note ---
Date of Service December 31, 2020 Assessment & Plan Admission and Anticipated Discharge Date Admission Date: December 28, 2020 Subjective Seen IN dialysis. Feels fine. AVF fine. MM mpoist. Chest _-Dec BS left. CVS--RRR. Abd--Soft non tnder. ext--no edema. Labs reviewed. High glu and high K. A/p 1 ESRD--MWF. Do 3hrs 2k bath and take about 1.5 kilo off. Also getting Pleural tap today. 2 N/V--Chronic Issue. Defer to GI and primary team. Results & Data ([facility]) Vital Signs (Past 12 Hours) Vital Signs Temp Pulse Pulse Resp BP Pulse Ox 12/31/20 08:11 37.1 C 83 19 211/86 H 93 12/31/20 07:10 82 12/31/20 03:23 36.6 C 80 18 182/82 H 93 12/31/20 00:23 77 12/30/20 23:06 36.9 C 81 18 131/64 91
[2020-12-31] MEDS: HEPARIN SOD (PORCINE) 1000 UNIT/ML IV SCH ×2 (10:57→12:06)
--- NOTE | 2020-12-31 11:57 | Pharmacy Report ---
Pharmacy Glycemic Short Note 2 - Date of Service December 31, 2020 - Glycemic Short BSG Results (Last 24 hours): 12/30/20 12/30/20 12/31/20 16:34 21:17 01:40 Glucose POC Glucose 170 H 134 H 222 H 12/31/20 12/31/20 12/31/20 07:32 07:59 08:00 Glucose 344 H* POC Glucose 332 H* 385 H* 12/31/20 08:01 Glucose POC Glucose 389 H* OUTPATIENT ANTIDIABETIC REGIMEN: * Lantus 12 units SC AM * Novolog CR 30 over 150 mg/dL; carbohydrate ratio of 10 * HbA1c pending ASSESSMENT: 12/31/20: * Patient received total of 50 units of insulin yesterday, of which 14 units were basal insulin * Fasting BSG elevated at 344 mg/dl, improving from day prior from 472 mg/dL - had increased basal insulin 15% from home dose yesterday to 14 units * Fasting BSG still above range this AM, will titrate basal further another ~15% increase from yesterday to 16 units this AM * Held IV insulin bolus this AM as patient is going to dialysis and BSGs tend to trend downward on dialysis days 12/30/20: * Patient developed persistent hyperglycemia starting last evening. Exact cause is unknown but it could be related to resuming a diet yesterday. * Fasting BSG of 503 with repeat of 472 mg/dL. Lantus was increased and patient was given an IV insulin bolus. * Tighten carb coverage for post prandial hyperglycemia. * Conservative changes made due to history of fluctuating glycemic control and gastroparesis. 12/27/20 * BSGs overnight was 331-250 mg/dL. Fasting BSG is 88 mg/dL-49 mg/dL. Patient received Lantus 12 units on 12/26/20 (confirmed no home dose of Lantus Thursday AM) plus 9 units of Novolog overnight. No subsequent insulin dosing since 0. * Patient had hypoglycemia episode at lunchtime due to lack of PO intake at breakfast time. * Work towards resuming Lantus in the morning. * Novolog scale that is looser since Lantus is being shifted earlier. Background * 50 yo M admitted overnight secondary to intractable nausea and vomiting. [facility] has been consulted to assist with inpatient glycemic management. Patient is a Type 1 Diabetic that is well know to pharmacy's glycemic service. * Admission BSG was 77 mg/dL this AM. It was unknown if patient took his AM dose of Lantus. Next BSG was not taken until almost 2100. It was 290 mg/dL and no insulin was ordered at that time. * Pharmacy was consulted around 2300 when BSG was 305 mg/dL with a repeat of 331 mg/dL. * Gave 12 units of Lantus at this time (home dose) * Started Novolog based on previous admission data. * Added overnight check to ensure BSG is trending downward PLAN FOR INPATIENT GLYCEMIC CONTROL: * Basal insulin - increase * Lantus 16 units SQ daily * Bolus insulin * NovoLog per scale ACHS or Q6hrs while NPO * Goal Range: Low 110 mg/dL - High 150 mg/dL * Correction Factor: 40 mg/dL/unit * Nutritional / Prandial insulin per carb ratio of 1 unit per 9 grams CHO consumed PLAN FOR DISCHARGE: * To be determined
[2020-12-31] MEDS: ONDANSETRON 4 MG OD TAB PO PRN (14:03)
[2020-12-31] MEDS ORDERED: LORazepam 1 MG TAB PO STA (14:16)
--- NOTE | 2020-12-31 14:45 | Hospitalist Progress Note ---
Date of Service December 31, 2020 Assessment & Plan (1) Pleural effusion: Plan: Left-sided pleural effusion. s/p thoracentesis last month in [facility]. Fluid was transudative, presumably from ESRD. Cytologies negative. No infectious process. The effusion has reaccumulated. It is large. Pulmonary consulted; thoracentesis planned for today. INR is 1.6. (2) Gastroparesis: Plan: Gastroparesis/cyclic vomiting "flare." N/V 2nd to above - now resolved. prior to HD today he was tolerating T1DM/ESRD diet. Moving right-sided 6mm stone could have also caused symptoms but less likely given the lack of hydronephrosis, etc. Cont PPI bid. (3) Pericardial effusion: Plan: Echo performed this admission - effusion is smaller than last study. No evidence of tamponade. Suspect 2nd ESRD. Should have surveillance of this over next few months. (4) Ureteral calculus, right: Plan: at the [facility]. 6mm. no hydronephrosis. I spoke with [facility] - they recommend outpatient f/u to discuss Rx options. (5) Pulmonary embolism: Plan: dx 1 month ago, [facility]. CHERI. on coumadin. following [facility]. I spoke with Dr Lennon 12/30 - she recommends a total weekly dose of about 27.5mg (~4mg each day). Holding coumadin at this time, however, for thoracentesis. Following his procedure resume coumadin with heparin drip for bridging purposes. (6) ESRD (end stage renal disease): Plan: [facility] consulted and HD needs appreciated. Schedule - M/W/F. s/p HD today. (7) Dialysis patient: (8) Hypertension: Plan: Cont carvedilol 25 mg twice daily, losartan 100 mg daily, amlodipine 5 mg daily. uncontrolled - if BPs remain high today then would increase norvasc to 5mg BID. (9) Nonischemic cardiomyopathy: Plan: Chronic systolic. EF 40-45%. Cont BB. Cont ARB. HD for volume control. See above re: pleural effusion. (10) CAD (coronary artery disease): Plan: Lipitor. Non-obstructive. Cont BB. 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 most recent a1c 6.9% Plan: PT consult completed - safe to return home w/ his parents d/c home tomorrow?? Admission and Anticipated Discharge Date Admission Date: December 28, 2020 Subjective patient just returned from HD as on other HD days he has nausea prior to his HD session he was feeling a bit anxious but otherwise had an eventful night last pm was eating well last night he endorses feeling anxious prior to his thoracentesis Review of Systems Review of Systems: gen: no fevers, chronic fatigue cardio: no chest pain. pulm: no dyspnea. GI: no abd pain. Physical Exam Physical Exam: gen - NAD, restricted affect, laying on left side; feeling nauseous mouth - MMM neck - no JVD heart - RRR, s1 s2, 2/6 GOKUL LSB lungs - severely decreased BS left base - no change; right lung CTA abd - soft, NT, ND, BS+ ext - no edema, pulses 2+ b/l psych - a/o x 3, restricted affect Results & Data Results & Data ([facility]) Vital Signs (Past 12 Hours) Vital Signs Temp Pulse Pulse Resp BP BP Pulse Ox 12/31/20 12:40 80 165/82 H 12/31/20 12:20 82 163/84 H 12/31/20 12:00 85 169/90 H 12/31/20 11:40 89 184/85 H 12/31/20 11:20 93 H 204/88 H 12/31/20 11:00 87 187/87 H 12/31/20 10:40 83 174/85 H 12/31/20 10:20 85 184/85 H 12/31/20 10:02 85 187/90 H 12/31/20 09:54 37 C 12/31/20 08:11 37.1 C 83 19 211/86 H 93 12/31/20 07:10 82 12/31/20 03:23 36.6 C 80 18 182/82 H 93 Laboratory Results Laboratory Results - last 24 hr 12/30/20 12/30/20 12/31/20 16:34 21:17 01:40 WBC RBC Hgb Hct MCV MCH MCHC RDW Std Deviation RDW Coeff of Kami Plt Count MPV PT INR Sodium Potassium Chloride Carbon Dioxide Anion Gap BUN Creatinine Est Cr Clr Drug Dosing Est GFR ( Amer) Est GFR (Non-Af Amer) BUN/Creatinine Ratio Glucose POC Glucose 170 H 134 H 222 H Calcium Beta-Hydroxybutyric Acd 12/31/20 12/31/20 12/31/20 07:32 07:32 07:32 WBC 9.48 RBC 4.04 L Hgb 12.6 L Hct 38.9 L MCV 96.3 MCH 31.2 MCHC 32.4 RDW Std Deviation 49.3 H RDW Coeff of Kami 13.8 Plt Count 418 H MPV 8.8 PT 15.5 H INR 1.6 H Sodium 125 L Potassium 5.3 H Chloride 91 L Carbon Dioxide 24 Anion Gap 9.0 BUN 54 H Creatinine 6.99 H* Est Cr Clr Drug Dosing 12.6 Est GFR ( Amer) 9.6 Est GFR (Non-Af Amer) 8.3 BUN/Creatinine Ratio 7.8 L Glucose 344 H* POC Glucose Calcium 8.1 L Beta-Hydroxybutyric Acd 12.98 H 12/31/20 12/31/20 12/31/20 07:59 08:00 08:01 WBC RBC Hgb Hct MCV MCH MCHC RDW Std Deviation RDW Coeff of Kami Plt Count MPV PT INR Sodium Potassium Chloride Carbon Dioxide Anion Gap BUN Creatinine Est Cr Clr Drug Dosing Est GFR ( Amer) Est GFR (Non-Af Amer) BUN/Creatinine Ratio Glucose POC Glucose 332 H* 385 H* 389 H* Calcium Beta-Hydroxybutyric Acd 12/31/20 11:50 WBC RBC Hgb Hct MCV MCH MCHC RDW Std Deviation RDW Coeff of Kami Plt Count MPV PT INR Sodium Potassium Chloride Carbon Dioxide Anion Gap BUN Creatinine Est Cr Clr Drug Dosing Est GFR ( Amer) Est GFR (Non-Af Amer) BUN/Creatinine Ratio Glucose POC Glucose 159 H Calcium Beta-Hydroxybutyric Acd PG Care Time/CCT Total # of Minutes Spent Total Time Spent with Patient: Total time spent is greater than 50% in coordination of care (as documented) at patient's floor/unit and/or counseling patient: Coding Level of Care Code 71931 Subseq Hosp Care Lvl 2 Diagnoses Gastroparesis K31.84 Pleural effusion J90 Pericardial effusion I31.3 Ureteral calculus, right N20.1 Pulmonary embolism I26.99 ESRD (end stage renal disease) N18.6 Dialysis patient Z99.2 Hypertension I10 Hypertension type: unspecified Nonischemic cardiomyopathy I42.8 CAD (coronary artery disease) I25.10 Coronary Disease-Associated Artery/Lesion type: [place] artery [place] vs. 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 transplanted heart: [place] heart Associated angina: without angina Qualified Code(s): I25.10 - Atherosclerotic heart disease of [place] coronary artery without angina pectoris
--- NOTE | 2020-12-31 15:35 | Procedure Note ---
Procedure Note Date of Service December 31, 2020 Note Procedure: Diagnostic therapeutic ultrasound-guided catheter thoracentesis Commercial Engineer: Dr. Anna Mendez Indication: Pleural effusion Consent: Signed by patient and verified with timeout prior to procedure Anesthesia: 1% lidocaine without epinephrine local. Procedure: Consent was verified and timeout performed. Appropriate imaging studies were reviewed prior to the procedure. Patient was placed in a seated position and limited thoracic ultrasound was performed of the left chest. See separate imaging. Appropriate site above the diaphragm for thoracentesis was selected. The skin was prepped and draped in normal sterile fashion. Lidocaine was used for local analgesia. Fluid was aspirated via the finder needle. A small skin pauline was made with the scalpel and the catheter over the needle patsy aratus was advanced over the rib into the pleural space. Using the syringe one-way valve system, a total of 1700 mL's of serous fluid was removed. The catheter was removed and observed to be intact. A sterile dressing was applied. Post procedure chest x-ray was ordered. Good lung sounds was appreciated postprocedure on the left side. There was still residual pleural effusion on the left. Postprocedure patient's blood pressure 118 x 84, saturation 98% room air. Patient had no complaints. Fluid was sent for labs, culture and cytology. Complications: None Blood loss: None Coding CPT Codes Pulmonary/Thoracic - Pulmonary and Thoracic: 18601 Thoracentesis w imaging ([id number]) [facility] Procedure Codes ([place]) Pulmonary/Thoracic Procedure 1: Pulmonary and Thoracic: 96778 Thoracentesis w imaging
[2020-12-31 16:11] LABS: Amylase Pleural Fluid 15 U/L; Glucose Pleural Fluid 219 mg/dl
[2020-12-31 16:17] LABS: LDH Pleural Fluid 74 U/L; Total Protein Pleural Fluid 3.1 g/dl
--- NOTE | 2020-12-31 16:19 | XRay Report ---
XR chest 1V portable HISTORY: 50 years-old Male S/P Thoracentesis follow-up study in a patient with left-sided pleural ef fusion and recent thoracentesis COMPARISON: Chest radiograph 12/30/2020 TECHNIQUE: Portable AP view of the chest FINDINGS: Cardiac silhouette is upper limits of normal in size. Trace left pleural effusion has decreased in si ze comparison status post thoracentesis. No postprocedural pneumothorax identified. Mild left lung ba se opacities suggestive of atelectasis. Degenerative changes of the shoulders and spine. IMPRESSION: 1. Trace left pleural effusion has decreased in size status post thoracentesis. 2. No postprocedural pneumothorax. ACT 112: Negative or not required by law. The above report was generated using voice recognition software. It may contain grammatical, syntax o r spelling errors. Electronically signed by: Justus Martinez M.D. 12/31/2020 4:17 PM
[2020-12-31 16:57] LABS: Albumin Level 2.5 gm/dl (3.4-5.0); Bilirubin,Total 0.4 mg/dl (0.2-1)
[2020-12-31 16:57] LABS: Appearance Pleural Fluid CLEAR; Color Pleural Fluid PALE YELLOW; RBC Pleural Fluid (A) < 3000 /uL; Source Pleural Fluid LEFT LUNG; WBC Pleural Fluid (A) 270 /uL
[2020-12-31] MEDS: WARFARIN SOD 2.5 MG TAB PO SCH (16:57)
[2020-12-31 18:21] LABS: Basophils, Fluid 0 %; Eosinophils, Fluid 12 %; Lymphocytes, Fluid 38 %; Mono,Macrophage,Mesothelial 26 %; Neutrophils, Fluid 24 %
[2020-12-31] MEDS: MELATONIN 3 MG TAB PO SCH (21:08)
[2021-01-01] MEDS ORDERED: INSULIN ASPART 100 UNITS/ML 3 ML PEN SC SCH
[2021-01-01 06:39] LABS: INR 1.4 (0.9-1.1)
[2021-01-01] MEDS: amLODIPine BESYLATE 5 MG TAB PO SCH ×2 (07:54→21:24)
[2021-01-01] MEDS: SERTRALINE HCL 100 MG TABLET PO SCH (07:54)
[2021-01-01] MEDS: NEPHROCAPS PO SCH (07:54)
[2021-01-01] MEDS: PANTOprazole 40 MG TAB PO SCH ×2 (07:54→21:24)
[2021-01-01] MEDS: ATORVASTATIN 10 MG TAB PO SCH (07:54)
[2021-01-01] MEDS: CHOLECALCIFEROL 1,000 UNITS 25 MCG TAB PO SCH (07:54)
[2021-01-01] MEDS: buPROPion SR 100 MG TABCR PO SCH (07:54)
[2021-01-01] MEDS: carvediloL 25 MG TAB PO SCH ×2 (07:54→17:51)
[2021-01-01] MEDS: LOSARTAN POTASSIUM 50 MG TAB PO SCH (07:55)
[2021-01-01] MEDS ORDERED: Heparin IV Adult Wt-Based Standard *NO* Bolus Protocol IV ONE (08:25)
[2021-01-01 09:08] LABS: Basophils # (auto) 0.03 K/uL (0-0.2); Basophils % (auto) 0.3 %; Eosinophils % (auto) 2.2 %; Hematocrit (blood only) 35.8 % (42-52); Hemoglobin 11.6 g/dL (14.0-18.0); Immature Granulocytes # (auto) 0.04 K/uL (0.00-0.02); Immature Granulocytes % (auto) 0.4 %; Lymphocytes # (auto) 1.48 K/uL (1.2-3.4); Lymphocytes % (auto) 16.1 %; Mean Corpuscular Hemoglobin 31.3 pg (25-34); Mean Corpuscular Hgb Conc 32.4 g/dL (32-36); Mean Corpuscular Volume 96.5 fL (80-100); Monocytes # (auto) 0.93 K/uL (0.11-0.59); Monocytes % (auto) 10.1 %; Neutrophils # (auto) 6.53 K/uL (1.4-6.5); Neutrophils % (auto) 70.9 %; Platelet Count 400 K/uL (130-400); RDW Coefficient of Variation 13.9 % (11.5-14.5); RDW Standard Deviation 49.3 fL (36.4-46.3); Red Blood Count 3.71 M/uL (4.7-6.1); White Blood Count 9.21 K/uL (4.8-10.8)
--- NOTE | 2021-01-01 09:25 | Pulmonology Progress Note ---
Date of Service January 01, 2021 Assessment & Plan (1) Pleural effusion: Plan: 50-year-old male with a history of recent pulmonary embolism, ESRD on hemodialysis, diabetes mellitus type 1 and gastroparesis who presented to the hospital due to cyclical vomiting. --Left-sided pleural effusion Likely underlying etiology is end-stage renal disease Patient had thoracentesis done at [facility] 11/16/2020 which was transudative. S/p thoracentesis 12/31/2020, 1700 mL serous fluid removed Lymphocytic, exudative as per lights criteria looking at protein Pleural fluid: LDH 74, protein 3.1, glucose 219, pH 7.45 Serum: DH 151, protein 6 Cytology negative for malignancy Mildly exudative looking at the protein. Could be from chronic effusion, history of thoracentesis in the past --Recent history of PE On warfarin --End-stage renal disease Plan as per nephrology Plan: Patient clinically doing better. Continue with heparin drip bridging to warfarin Incentive spirometry is going to help the patient In for future patient again gets pleural effusion then chemical pleurodesis could be thought of No further recommendation from pulmonary perspective. Please call directly with any questions. Please note the above document was generated using voice recognition software. It may contain grammatical, syntax or spelling errors.Any formal questions or concerns about the content, text or information contained within the body of this dictation should be directly addressed to the provider for clarification. (2) Pulmonary embolism: (3) Anticoagulated on warfarin: Admission and Anticipated Discharge Date Admission Date: December 28, 2020 Subjective Patient seen and examined at bedside. No acute distress, no adverse events overnight. Patient states that he is feeling better compared to yesterday. No more nausea. He is able to tolerate diet., No headache, shortness of breath significantly improved. Review of Systems Review of Systems: All systems reviewed & are unremarkable except as noted in Subjective Physical Exam Physical Exam: Constitutional: No acute distress HEENT: EOMI, PERRLA Respiratory system: Decreased air entry on the left side, no wheeze, rhonchi, positive crackles left lower lobe CVS: S1-S2 positive, positive 2 out of 6 systolic murmur appreciated best at the apex Abdomen: Soft, nontender, nondistended, positive bowel sounds x4 Extremities: +2 pulses bilaterally radialis/ dorsalis pedis, no cyanosis, no edema, left arm AV fistula Neuro: Awake alert oriented x3 Psych: Normal mood and affect G/U: No Lee Skin: no rashes, warm and dry Lymphatic: no cervical or axillary lymphadenopathy Results & Data Results & Data ([facility]) Vital Signs (Past 12 Hours) Vital Signs Temp Pulse Pulse Resp BP Pulse Ox 01/01/21 07:17 37.1 C 83 18 176/79 H 92 01/01/21 02:55 36.4 C L 80 16 156/74 H 94 12/31/20 23:42 78 12/31/20 22:53 37.5 C 78 18 152/67 H 93 01/01/21 05:33 01/01/21 05:33 PG Care Time/CCT Total # of Minutes Spent Total Time Spent with Patient: Total time spent is greater than 50% in coordination of care (as documented) at patient's floor/unit and/or counseling patient: Coding [place] [address] Subseq Hosp Care Lvl 3 Patient Type Established Diagnoses Pleural effusion J90 Pulmonary embolism I26.99 Anticoagulated on warfarin Z79.01
[2021-01-01] MEDS: INSULIN ASPART 100 UNITS/ML 3 ML PEN SC SCH ×4 (09:38→21:24)
[2021-01-01] MEDS: INSULIN GLARGINE SOLOSTAR 100 UNITS/ML 3 ML PEN SC SCH (09:40)
[2021-01-01 09:51] LABS: BUN Creatinine Ratio 7.1 (10-20); Calcium 7.7 mg/dl (8.5-10.1); Creatinine Clr Calc Pharmacy 16.7 ml/min; Est GFR (African American) 14.4 ml/min; Est GFR (Non-African American) 12.5 ml/min; Potassium 4.1 mmol/L (3.5-5.1)
[2021-01-01 12:33] LABS: Basophils # (auto) 0.05 K/uL (0-0.2); Basophils % (auto) 0.5 %; Eosinophils # (auto) 0.17 K/uL (0-0.5); Eosinophils % (auto) 1.8 %; Hematocrit (blood only) 36.2 % (42-52); Hemoglobin 11.7 g/dL (14.0-18.0); Immature Granulocytes # (auto) 0.04 K/uL (0.00-0.02); Immature Granulocytes % (auto) 0.4 %; Lymphocytes # (auto) 1.38 K/uL (1.2-3.4); Lymphocytes % (auto) 14.8 %; Mean Corpuscular Hemoglobin 31.8 pg (25-34); Mean Corpuscular Volume 98.4 fL (80-100); Monocytes # (auto) 0.81 K/uL (0.11-0.59); Monocytes % (auto) 8.7 %; Neutrophils # (auto) 6.88 K/uL (1.4-6.5); Neutrophils % (auto) 73.8 %; Platelet Count 389 K/uL (130-400); RDW Coefficient of Variation 14.1 % (11.5-14.5); RDW Standard Deviation 50.4 fL (36.4-46.3); Red Blood Count 3.68 M/uL (4.7-6.1); White Blood Count 9.33 K/uL (4.8-10.8)
[2021-01-01 12:36] LABS: Mean Corpuscular Hgb Conc 32.3 g/dL (32-36)
[2021-01-01 12:40] LABS: INR 1.3 (0.9-1.1); Prothrombin Time 13.2 Seconds (9.0-12.0)
[2021-01-01 15:05] LABS: Partial Thromboplastin Time 26.8 Seconds (21.0-31.0)
[2021-01-01] MEDS: HEPARIN SODIUM/DEXTROSE 25,000 UNITS/500 ML BAG IV SCH (15:27)
[2021-01-01] MEDS: WARFARIN SOD 4 MG TAB PO SCH (17:51)
[2021-01-01] MEDS ORDERED: WARFARIN SOD 2 MG TAB PO STA (18:35)
--- NOTE | 2021-01-01 18:41 | Hospitalist Progress Note ---
Date of Service January 01, 2021 Assessment & Plan (1) Pleural effusion: Plan: With large left-sided pleural effusion. s/p thoracentesis last month in [facility]. Fluid was transudative, presumably from ESRD at that time although now is exudative as per lights criteria. Cytologies negative. No infectious process. Appreciate pulmonology management-status post thoracentesis on 12/31 for 1.5 L Recommends incentive spirometry to prevent reaccumulation (2) Gastroparesis: Plan: Gastroparesis/cyclic vomiting "flare." N/V 2nd to above - now resolved. Tolerating diet Moving right-sided 6mm stone could have also caused symptoms but less likely given the lack of hydronephrosis, etc. Cont PPI bid. (3) Pericardial effusion: Plan: Echo performed this admission - effusion is smaller than last study. No evidence of tamponade. Suspect 2nd ESRD. Should have surveillance of this over next few months. (4) Ureteral calculus, right: Plan: at the [facility]. 6mm. no hydronephrosis. [facility] - they recommend outpatient f/u to discuss Rx options. (5) Pulmonary embolism: Plan: dx 1 month ago, [facility]. CHERI. on coumadin. following with [facility]. Previous hospitalist spoke with Dr Lennon 12/30 - she recommends a total weekly dose of about 27.5mg (~4mg each day). Coumadin was held for thoracentesis. Start heparin drip for bridging purposes today Restart Coumadin 6 mg today and then 4 mg daily after that Follow INR in the morning (6) ESRD (end stage renal disease): Plan: [facility] Nephrology consulted and HD needs appreciated. Schedule - M/W/F. Due for hemodialysis tomorrow Follow BMP (7) Dialysis patient: Plan: As above (8) Hypertension: Plan: Blood pressure still somewhat uncontrolled Cont carvedilol 25 mg twice daily, losartan 100 mg daily, amlodipine 5 mg daily. uncontrolled -may need to increase norvasc to 5mg BID. (9) Nonischemic cardiomyopathy: Plan: Chronic systolic. EF 40-45%. Cont BB. Cont ARB. HD for volume control. See above re: pleural effusion. (10) CAD (coronary artery disease): Plan: Lipitor. Non-obstructive. Cont BB. (11) 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, with long-term current use of insulin: Plan: BSGs were high distally- lantus & novolog adjusted by pharmacy yesterday. most recent a1c 6.9% Plan: PT consult completed - safe to return home w/ his parents Disposition-must stay in the hospital while bridging with heparin as there is no alternative bridging medication until his Coumadin is therapeutic again Most likely discharged home in 2 days Admission and Anticipated Discharge Date Admission Date: December 28, 2020 Subjective Patient feeling very well today. Denies chest pain or shortness of breath, no further nausea or vomiting. He is tolerating p.o. and moving his bowels. Telemetry with sinus rhythm and first-degree AV block with rates in the 70s to 90s Review of Systems Review of Systems: All systems reviewed & are unremarkable except as noted in HPI & below Physical Exam Constitutional: WD/WN, vitals as above Eyes: + anicteric sclerae ENMT: external ear and nose normal, oropharynx normal Neck: trachea midline, no thyromegaly Respiratory: normal respiratory effort, lungs clear to auscultation Cardiovascular: Rate/Rhythm: regular rate and regular rhythm Heart Sounds: + murmur (2/6 systolic murmur at the lower sternal border on left) Chest (Breasts): Chest: normal inspection of chest Gastrointestinal (Abdomen): normal bowel sounds, soft, nontender, no hep atosplenomegaly Musculoskeletal: Extremities: extremities normal to inspection; no cyanosis and no clubbing Skin: no rashes, warm and dry Neurologic: moves all extremities and awake; no focal motor deficits Psychiatric: A+Ox3, euthymic affect Lymphatic: no lymphedema Results & Data Results & Data ([facility]) Vital Signs (Past 12 Hours) Vital Signs Temp Pulse Pulse Resp BP Pulse Ox 01/01/21 17:28 81 01/01/21 16:13 36.5 C 80 18 168/77 H 95 01/01/21 12:29 80 01/01/21 12:08 36.4 C L 95 H 18 126/68 94 01/01/21 07:17 37.1 C 83 18 176/79 H 92 Laboratory Results 01/01/21 01/01/21 01/01/21 Range/Units 16:48 11:58 11:49 WBC (4.8-10.8) K/uL RBC (4.7-6.1) M/uL Hgb (14.0-18.0) g/dL Hct (42-52) % MCV (80-100) fL MCH (25-34) pg MCHC (32-36) g/dL RDW Std Deviation (36.4-46.3) fL RDW Coeff of Kami (11.5-14.5) % Plt Count (130-400) K/uL MPV (7.4-10.4) fL Immature Gran % (Auto) % Neut % (Auto) % Lymph % (Auto) % [place] % (Auto) % Eos % (Auto) % Baso % (Auto) % Neut # (Auto) (1.4-6.5) K/uL Lymph # (Auto) (1.2-3.4) K/uL [place] # (Auto) (0.11-0.59) K/uL Eos # (Auto) (0-0.5) K/uL Baso # (Auto) (0-0.2) K/uL Immature Gran # (Auto) (0.00-0.02) K/uL PT 13.2 H (9.0-12.0) Seconds INR 1.3 H (0.9-1.1) APTT 26.8 (21.0-31.0) Seconds PTT Ratio 1.0 Sodium (136-145) mmol/L Potassium (3.5-5.1) mmol/L Chloride (98-107) mmol/L Carbon Dioxide (21-32) mmol/L Anion Gap (3-11) BUN (7-18) mg/dl Creatinine (0.6-1.4) mg/dl Est Cr Clr Drug Dosing ml/min Est GFR ( Amer) ml/min Est GFR (Non-Af Amer) ml/min BUN/Creatinine Ratio (10-20) Glucose (70-99) mg/dl POC Glucose 210 H (70-99) mg/dl Calcium (8.5-10.1) mg/dl 01/01/21 01/01/21 01/01/21 Range/Units 11:49 11:47 07:28 WBC 9.33 (4.8-10.8) K/uL RBC 3.68 L (4.7-6.1) M/uL Hgb 11.7 L (14.0-18.0) g/dL Hct 36.2 L (42-52) % MCV 98.4 (80-100) fL MCH 31.8 (25-34) pg MCHC 32.3 (32-36) g/dL RDW Std Deviation 50.4 H (36.4-46.3) fL RDW Coeff of Kami 14.1 (11.5-14.5) % Plt Count 389 (130-400) K/uL MPV 9.0 (7.4-10.4) fL Immature Gran % (Auto) 0.4 % Neut % (Auto) 73.8 % Lymph % (Auto) 14.8 % [place] % (Auto) 8.7 % Eos % (Auto) 1.8 % Baso % (Auto) 0.5 % Neut # (Auto) 6.88 H (1.4-6.5) K/uL Lymph # (Auto) 1.38 (1.2-3.4) K/uL [place] # (Auto) 0.81 H (0.11-0.59) K/uL Eos # (Auto) 0.17 (0-0.5) K/uL Baso # (Auto) 0.05 (0-0.2) K/uL Immature Gran # (Auto) 0.04 H (0.00-0.02) K/uL PT (9.0-12.0) Seconds INR (0.9-1.1) APTT (21.0-31.0) Seconds PTT Ratio Sodium (136-145) mmol/L Potassium (3.5-5.1) mmol/L Chloride (98-107) mmol/L Carbon Dioxide (21-32) mmol/L Anion Gap (3-11) BUN (7-18) mg/dl Creatinine (0.6-1.4) mg/dl Est Cr Clr Drug Dosing ml/min Est GFR ( Amer) ml/min Est GFR (Non-Af Amer) ml/min BUN/Creatinine Ratio (10-20) Glucose (70-99) mg/dl POC Glucose 237 H 151 H (70-99) mg/dl Calcium (8.5-10.1) mg/dl 0701/01/21 01/01/21 Range/Units 05:33 05:33 05:32 WBC 9.21 (4.8-10.8) K/uL RBC 3.71 L (4.7-6.1) M/uL Hgb 11.6 L (14.0-18.0) g/dL Hct 35.8 L (42-52) % MCV 96.5 (80-100) fL MCH 31.3 (25-34) pg MCHC 32.4 (32-36) g/dL RDW Std Deviation 49.3 H (36.4-46.3) fL RDW Coeff of Kami 13.9 (11.5-14.5) % Plt Count 400 (130-400) K/uL MPV 9.0 (7.4-10.4) fL Immature Gran % (Auto) 0.4 % Neut % (Auto) 70.9 % Lymph % (Auto) 16.1 % [place] % (Auto) 10.1 % Eos % (Auto) 2.2 % Baso % (Auto) 0.3 % Neut # (Auto) 6.53 H (1.4-6.5) K/uL Lymph # (Auto) 1.48 (1.2-3.4) K/uL [place] # (Auto) 0.93 H (0.11-0.59) K/uL Eos # (Auto) 0.20 (0-0.5) K/uL Baso # (Auto) 0.03 (0-0.2) K/uL Immature Gran # (Auto) 0.04 H (0.00-0.02) K/uL PT 14.0 H (9.0-12.0) Seconds INR 1.4 H (0.9-1.1) APTT (21.0-31.0) Seconds PTT Ratio Sodium 134 L D (136-145) mmol/L Potassium 4.1 D (3.5-5.1) mmol/L Chloride 100 (98-107) mmol/L Carbon Dioxide 28 (21-32) mmol/L Anion Gap 6.0 (3-11) BUN 36 H (7-18) mg/dl Creatinine 5.01 H* D (0.6-1.4) mg/dl Est Cr Clr Drug Dosing 16.7 ml/min Est GFR ( Amer) 14.4 ml/min Est GFR (Non-Af Amer) 12.5 ml/min BUN/Creatinine Ratio 7.1 L (10-20) Glucose 131 H (70-99) mg/dl POC Glucose (70-99) mg/dl Calcium 7.7 L (8.5-10.1) mg/dl 01/01/21 12/31/20 Range/Units 00:13 20:08 WBC (4.8-10.8) K/uL RBC (4.7-6.1) M/uL Hgb (14.0-18.0) g/dL Hct (42-52) % MCV (80-100) fL MCH (25-34) pg MCHC (32-36) g/dL RDW Std Deviation (36.4-46.3) fL RDW Coeff of Kami (11.5-14.5) % Plt Count (130-400) K/uL MPV (7.4-10.4) fL Immature Gran % (Auto) % Neut % (Auto) % Lymph % (Auto) % [place] % (Auto) % Eos % (Auto) % Baso % (Auto) % Neut # (Auto) (1.4-6.5) K/uL Lymph # (Auto) (1.2-3.4) K/uL [place] # (Auto) (0.11-0.59) K/uL Eos # (Auto) (0-0.5) K/uL Baso # (Auto) (0-0.2) K/uL Immature Gran # (Auto) (0.00-0.02) K/uL PT (9.0-12.0) Seconds INR (0.9-1.1) APTT (21.0-31.0) Seconds PTT Ratio Sodium (136-145) mmol/L Potassium (3.5-5.1) mmol/L Chloride (98-107) mmol/L Carbon Dioxide (21-32) mmol/L Anion Gap (3-11) BUN (7-18) mg/dl Creatinine (0.6-1.4) mg/dl Est Cr Clr Drug Dosing ml/min Est GFR ( Amer) ml/min Est GFR (Non-Af Amer) ml/min BUN/Creatinine Ratio (10-20) Glucose (70-99) mg/dl POC Glucose 129 H 75 (70-99) mg/dl Calcium (8.5-10.1) mg/dl PG Care Time/CCT Total # of Minutes Spent Total Time Spent with Patient: Total time spent is greater than 50% in coordination of care (as documented) at patient's floor/unit and/or counseling patient: Coding Level of Care Code 08809 Subseq Hosp Care Lvl 2 Diagnoses Pleural effusion J90 Gastroparesis K31.84 Pericardial effusion I31.3 Ureteral calculus, right N20.1 Pulmonary embolism I26.99 ESRD (end stage renal disease) N18.6 Dialysis patient Z99.2 Hypertension I10 Hypertension type: unspecified Nonischemic cardiomyopathy I42.8 CAD (coronary artery disease) I25.10 Coronary Disease-Associated Artery/Lesion type: [place] artery [place] vs. transplanted heart: [place] heart Associated angina: without angina 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, with long-term current use of insulin E10.29 (1) Hypertension Hypertension type: unspecified Qualified Code(s): I10 - Essential (primary) hypertension (2) CAD (coronary artery disease) Coronary Disease-Associated Artery/Lesion type: [place] artery [place] vs. transplanted heart: [place] heart Associated angina: without angina Qualified Code(s): I25.10 - Atherosclerotic heart disease of [place] coronary artery without angina pectoris
[2021-01-01] MEDS: MELATONIN 3 MG TAB PO SCH (21:24)
[2021-01-01 22:10] LABS: Partial Thromboplastin Ratio 1.3; Partial Thromboplastin Time 33.5 Seconds (21.0-31.0)
[2021-01-01] MEDS ORDERED: HEPARIN SOD (PORCINE) 1000 UNIT/ML IV ONE (22:30)
[2021-01-01] MEDS ORDERED: diphenhydrAMINE Capsule 25 MG CAP PO ONE (23:37)
[2021-01-02] MEDS: INSULIN ASPART 100 UNITS/ML 3 ML PEN SC SCH ×6 (00:49→20:51)
[2021-01-02 03:21] LABS: INR 1.2 (0.9-1.1); Prothrombin Time 12.4 Seconds (9.0-12.0)
[2021-01-02 04:17] LABS: Basophils # (auto) 0.04 K/uL (0-0.2); Basophils % (auto) 0.5 %; Eosinophils # (auto) 0.41 K/uL (0-0.5); Eosinophils % (auto) 4.7 %; Hematocrit (blood only) 32.1 % (42-52); Hemoglobin 10.5 g/dL (14.0-18.0); Immature Granulocytes # (auto) 0.06 K/uL (0.00-0.02); Immature Granulocytes % (auto) 0.7 %; Lymphocytes # (auto) 1.58 K/uL (1.2-3.4); Lymphocytes % (auto) 18.2 %; Mean Corpuscular Hemoglobin 31.4 pg (25-34); Mean Corpuscular Hgb Conc 32.7 g/dL (32-36); Mean Corpuscular Volume 96.1 fL (80-100); Mean Platelet Volume 8.7 fL (7.4-10.4); Monocytes # (auto) 0.94 K/uL (0.11-0.59); Monocytes % (auto) 10.8 %; Neutrophils # (auto) 5.67 K/uL (1.4-6.5); Neutrophils % (auto) 65.1 %; Platelet Count 330 K/uL (130-400); RDW Coefficient of Variation 13.9 % (11.5-14.5); RDW Standard Deviation 48.6 fL (36.4-46.3); Red Blood Count 3.34 M/uL (4.7-6.1)
[2021-01-02 04:37] LABS: Partial Thromboplastin Ratio 1.9
[2021-01-02 04:45] LABS: Partial Thromboplastin Time 48.8 Seconds (21.0-31.0)
[2021-01-02 04:54] LABS: BUN Creatinine Ratio 8.5 (10-20); Calcium 7.5 mg/dl (8.5-10.1); Creatinine Clr Calc Pharmacy 13.2 ml/min; Est GFR (African American) 10.9 ml/min; Est GFR (Non-African American) 9.4 ml/min; Potassium 4.5 mmol/L (3.5-5.1)
[2021-01-02] MEDS ORDERED: SODIUM CHLORIDE 0.9% 1000ML 1,000 ML IV PRN (07:00)
[2021-01-02] MEDS: ONDANSETRON INJ 2 MG/ML 2 ML VIAL IV PRN (07:35)
[2021-01-02] MEDS: LORazepam 0.5 MG TAB PO PRN ×3 (08:04→18:45)
[2021-01-02] MEDS: HEPARIN SODIUM/DEXTROSE 25,000 UNITS/500 ML BAG IV SCH (09:05)
[2021-01-02] MEDS: INSULIN GLARGINE SOLOSTAR 100 UNITS/ML 3 ML PEN SC SCH (09:06)
[2021-01-02] MEDS ORDERED: LORazepam 0.5 MG TAB PO STA (10:47)
[2021-01-02] MEDS: SERTRALINE HCL 100 MG TABLET PO SCH (12:32)
[2021-01-02] MEDS: PANTOprazole 40 MG TAB PO SCH ×2 (12:32→20:11)
[2021-01-02] MEDS: LOSARTAN POTASSIUM 50 MG TAB PO SCH (12:34)
[2021-01-02] MEDS: NEPHROCAPS PO SCH (12:35)
[2021-01-02] MEDS: carvediloL 25 MG TAB PO SCH ×2 (12:35→18:15)
[2021-01-02] MEDS: CHOLECALCIFEROL 1,000 UNITS 25 MCG TAB PO SCH (12:35)
[2021-01-02] MEDS: amLODIPine BESYLATE 5 MG TAB PO SCH ×2 (12:35→20:11)
[2021-01-02] MEDS: buPROPion SR 100 MG TABCR PO SCH (12:35)
[2021-01-02] MEDS: ATORVASTATIN 10 MG TAB PO SCH (12:35)
[2021-01-02] MEDS: diphenhydrAMINE 50 MG/ML VIAL IV PRN (13:54)
[2021-01-02] MEDS ORDERED: WARFARIN SOD 2 MG TAB PO ONE (16:00)
[2021-01-02] MEDS: WARFARIN SOD 4 MG TAB PO SCH (18:15)
[2021-01-02] MEDS: ONDANSETRON 4 MG OD TAB PO PRN (18:15)
[2021-01-02] MEDS: METOCLOPRAMIDE HCL INJ 5 MG/ML 2 ML VIAL IV PRN (19:47)
[2021-01-02] MEDS: MELATONIN 3 MG TAB PO SCH (20:11)
--- NOTE | 2021-01-02 23:19 | Hospitalist Progress Note ---
Date of Service January 02, 2021 Assessment & Plan (1) Pleural effusion: Plan: LEFT. s/p thoracentesis 12/[address] Mendez. 1700cc removed. Transudative. Cultures and cytology negative. s/p thoracentesis last month in [facility] as well - same fluid features. Likely 2nd to ESRD status. If he reaccumulates will need possible surgical intervention for this. Cont incentive spirometry. (2) Gastroparesis: Plan: Gastroparesis/cyclic vomiting "flare." N/V 2nd to above - had resolved but having intermittent nausea - especially on HD days Moving right-sided 6mm stone could have also caused symptoms but less likely given the lack of hydronephrosis, etc. Just to be sure will check a KUB x-ray on 01/03. If it looks like the stone is moving will obtain renal u/s. (3) Pericardial effusion: Plan: Echo performed this admission - effusion is smaller than last study. No evidence of tamponade. Suspect 2nd ESRD. Should have surveillance of this over next few months. (4) Ureteral calculus, right: Plan: at the [facility]. 6mm. no hydronephrosis. [facility] - they recommend outpatient f/u to discuss Rx options. Will get KUB x-ray in the am. (5) Pulmonary embolism: Plan: dx 1 month ago, [facility]. CHERI. on coumadin. following with [facility]. Previous hospitalist spoke with Dr Lennon 12/30 - she recommends a total weekly dose of about 27.5mg (~4mg each day). Coumadin was held for his thoracentesis. cont heparin bridge. give another 6mg of coumadin today with INR am. (6) ESRD (end stage renal disease): Plan: [facility] Nephrology consulted and HD needs appreciated. Schedule - M/W/F. (7) Dialysis patient: Plan: As above (8) Hypertension: Plan: uncontrolled Remains on carvedilol 25 mg twice daily, losartan 100 mg daily, amlodipine 5 mg BID. add doxazosin 2mg at HS. (9) Nonischemic cardiomyopathy: Plan: Chronic systolic. EF 40-45%. Cont BB. Cont ARB. HD for volume control. See above re: pleural effusion. (10) CAD (coronary artery disease): Plan: Lipitor. Non-obstructive. Cont BB. 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 lantus & novolog adjusted by pharmacy. most recent a1c 6.9% Plan: PT consult completed - safe to return home w/ his parents Disposition - home, await INR to be >2 Admission and Anticipated Discharge Date Admission Date: December 28, 2020 Subjective patient c/o nausea with dry heaves just prior to going to HD session he admitted to feeling anxious he asked for ativan and benadryl denied any abd pain no diarrhea up until this am he was eating fine states breathing has been good since his thoracentesis earlier this week tele - NSR overnight Review of Systems Review of Systems: gen - no fever cardio - no chest pain pulm - no cough or dyspnea musculo - no back pain GI - no flank pain or abd pain Physical Exam Physical Exam: gen - NAD, laying in position in bed mouth - MMM neck - no JVD heart - RRR, s1 s2, 2/6 GOKLU LSB lungs - improving airation left lung base; right lung CTA abd - soft, NT, ND, BS+, no flank tenderness ext - no edema, pulses 2+ b/l psych - a/o x 3, restricted affect Results & Data Results & Data ([facility]) Vital Signs (Past 12 Hours) Vital Signs Temp Pulse Pulse Pulse Resp BP BP 01/02/21 18:34 37.2 C 91 H 18 01/02/21 17:44 36.4 C L 84 01/02/21 17:36 88 197/84 H 01/02/21 17:00 84 184/83 H 01/02/21 16:40 86 186/80 H 01/02/21 16:00 86 190/85 H 01/02/21 15:46 36.4 C L 72 20 113/65 01/02/21 15:40 88 205/92 H 01/02/21 15:20 88 205/94 H 01/02/21 15:00 88 197/93 H 01/02/21 14:40 87 194/90 H 01/02/21 14:20 86 191/87 H 01/02/21 14:05 76 172/86 H 01/02/21 14:00 36.8 C 89 01/02/21 11:27 36.8 C 85 18 BP Pulse Ox 01/02/21 18:34 193/74 H 97 01/02/21 17:44 184/83 H 01/02/21 17:36 01/02/21 17:00 01/02/21 16:40 01/02/21 16:00 01/02/21 15:46 100 01/02/21 15:40 01/02/21 15:20 01/02/21 15:00 01/02/21 14:40 01/02/21 14:20 01/02/21 14:05 01/02/21 14:00 01/02/21 11:27 180/98 H 95 Laboratory Results Laboratory Results - last 24 hr 01/02/21 01/02/21 01/02/21 00:28 02:39 03:57 WBC RBC Hgb Hct MCV MCH MCHC RDW Std Deviation RDW Coeff of Kami Plt Count MPV Immature Gran % (Auto) Neut % (Auto) Lymph % (Auto) [place] % (Auto) Eos % (Auto) Baso % (Auto) Neut # (Auto) Lymph # (Auto) [place] # (Auto) Eos # (Auto) Baso # (Auto) Immature Gran # (Auto) PT 12.4 H INR 1.2 H APTT 27.0 PTT Ratio 1.0 Sodium Potassium Chloride Carbon Dioxide Anion Gap BUN Creatinine Est Cr Clr Drug Dosing Est GFR ( Amer) Est GFR (Non-Af Amer) BUN/Creatinine Ratio Glucose POC Glucose 315 H* 196 H Calcium 01/02/21 01/02/21 01/02/21 03:58 03:58 03:58 WBC 8.70 RBC 3.34 L Hgb 10.5 L Hct 32.1 L MCV 96.1 MCH 31.4 MCHC 32.7 RDW Std Deviation 48.6 H RDW Coeff of Kami 13.9 Plt Count 330 MPV 8.7 Immature Gran % (Auto) 0.7 Neut % (Auto) 65.1 Lymph % (Auto) 18.2 [place] % (Auto) 10.8 Eos % (Auto) 4.7 Baso % (Auto) 0.5 Neut # (Auto) 5.67 Lymph # (Auto) 1.58 [place] # (Auto) 0.94 H Eos # (Auto) 0.41 Baso # (Auto) 0.04 Immature Gran # (Auto) 0.06 H PT INR APTT 48.8 H* PTT Ratio 1.9 Sodium 130 L Potassium 4.5 Chloride 97 L Carbon Dioxide 28 Anion Gap 5.0 BUN 54 H Creatinine 6.34 H* D Est Cr Clr Drug Dosing 13.2 Est GFR ( Amer) 10.9 Est GFR (Non-Af Amer) 9.4 BUN/Creatinine Ratio 8.5 L Glucose 187 H POC Glucose Calcium 7.5 L 01/02/21 01/02/21 01/02/21 07:25 11:25 18:12 WBC RBC Hgb Hct MCV MCH MCHC RDW Std Deviation RDW Coeff of Kami Plt Count MPV Immature Gran % (Auto) Neut % (Auto) Lymph % (Auto) [place] % (Auto) Eos % (Auto) Baso % (Auto) Neut # (Auto) Lymph # (Auto) [place] # (Auto) Eos # (Auto) Baso # (Auto) Immature Gran # (Auto) PT INR APTT PTT Ratio Sodium Potassium Chloride Carbon Dioxide Anion Gap BUN Creatinine Est Cr Clr Drug Dosing Est GFR ( Amer) Est GFR (Non-Af Amer) BUN/Creatinine Ratio Glucose POC Glucose 94 106 H 114 H Calcium 01/02/21 20:03 WBC RBC Hgb Hct MCV MCH MCHC RDW Std Deviation RDW Coeff of Kami Plt Count MPV Immature Gran % (Auto) Neut % (Auto) Lymph % (Auto) [place] % (Auto) Eos % (Auto) Baso % (Auto) Neut # (Auto) Lymph # (Auto) [place] # (Auto) Eos # (Auto) Baso # (Auto) Immature Gran # (Auto) PT INR APTT PTT Ratio Sodium Potassium Chloride Carbon Dioxide Anion Gap BUN Creatinine Est Cr Clr Drug Dosing Est GFR ( Amer) Est GFR (Non-Af Amer) BUN/Creatinine Ratio Glucose POC Glucose 102 H Calcium PG Care Time/CCT Total # of Minutes Spent Total Time Spent with Patient: Total time spent is greater than 50% in coordination of care (as documented) at patient's floor/unit and/or counseling patient: Coding Level of Care Code 46260 Subseq Hosp Care Lvl 2 Diagnoses Pleural effusion J90 Gastroparesis K31.84 Pericardial effusion I31.3 Ureteral calculus, right N20.1 Pulmonary embolism I26.99 ESRD (end stage renal disease) N18.6 Dialysis patient Z99.2 Hypertension I10 Hypertension type: unspecified Nonischemic cardiomyopathy I42.8 CAD (coronary artery disease) I25.10 Coronary Disease-Associated Artery/Lesion type: [place] artery [place] vs. transplanted heart: [place] heart Associated angina: without angina 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, with long-term current use of insulin E10.29 (1) Hypertension Hypertension type: unspecified Qualified Code(s): I10 - Essential (primary) hypertension (2) CAD (coronary artery disease) Coronary Disease-Associated Artery/Lesion type: [place] artery [place] vs. transplanted heart: [place] heart Associated angina: without angina Qualified Code(s): I25.10 - Atherosclerotic heart disease of [place] coronary artery without angina pectoris
[2021-01-02] MEDS: DOXAZosin MESYLATE TAB 2 MG TAB PO SCH (23:55)
[2021-01-02] MEDS: PROCHLORPERAZINE 10 MG in SYRINGE 8 ML IV PRN (23:56)
[2021-01-03] MEDS: INSULIN ASPART 100 UNITS/ML 3 ML PEN SC SCH ×5 (00:56→21:40)
[2021-01-03] MEDS: HEPARIN SODIUM/DEXTROSE 25,000 UNITS/500 ML BAG IV SCH ×3 (03:48→23:18)
[2021-01-03 07:04] LABS: INR 1.7 (0.9-1.1); Partial Thromboplastin Ratio 2.6; Prothrombin Time 16.4 Seconds (9.0-12.0)
[2021-01-03 07:11] LABS: Partial Thromboplastin Time 66.8 Seconds (21.0-31.0)
--- NOTE | 2021-01-03 08:33 | XRay Report ---
KUB HISTORY: Follow up study in a patient with right nephrolithiasis right-sided renal stone COMPARISON: Head CT 12/26/2020 FINDINGS: Nonobstructive bowel gas pattern. An electronic device again projects over the abdominal le ft upper quadrant. Unchanged positioning of the 6 mm calculus of the proximal right ureter. Renal sha dows are obscured by bowel gas. Pelvic basin vascular calcifications redemonstrated. No renal calcul i. No ureteral calculi. No pneumoperitoneum or pneumatosis. Degenerative changes of the spine, pelvis and hips. Partially imaged hardware of the right hip. No fracture. IMPRESSION: Unchanged positioning of the 6 mm proximal right ureteral calculus at the level of L3. ACT 112: Negative or not required by law. The above report was generated using voice recognition software. It may contain grammatical, syntax o r spelling errors. Electronically signed by: Justus Martinez M.D. 01/03/2021 8:32 AM
[2021-01-03] MEDS: INSULIN GLARGINE SOLOSTAR 100 UNITS/ML 3 ML PEN SC SCH (08:56)
[2021-01-03] MEDS: carvediloL 25 MG TAB PO SCH ×2 (08:56→16:36)
[2021-01-03] MEDS: LOSARTAN POTASSIUM 50 MG TAB PO SCH (08:57)
[2021-01-03] MEDS: CHOLECALCIFEROL 1,000 UNITS 25 MCG TAB PO SCH (08:57)
[2021-01-03] MEDS: buPROPion SR 100 MG TABCR PO SCH (08:57)
[2021-01-03] MEDS: ATORVASTATIN 10 MG TAB PO SCH (08:57)
[2021-01-03] MEDS: amLODIPine BESYLATE 5 MG TAB PO SCH ×2 (08:57→21:38)
[2021-01-03] MEDS: NEPHROCAPS PO SCH (08:58)
[2021-01-03] MEDS: PANTOprazole 40 MG TAB PO SCH ×2 (08:58→21:39)
[2021-01-03] MEDS: SERTRALINE HCL 100 MG TABLET PO SCH (08:58)
[2021-01-03 14:26] LABS: Partial Thromboplastin Ratio 2.8
[2021-01-03 14:33] LABS: Partial Thromboplastin Time 72.8 Seconds (21.0-31.0)
[2021-01-03] MEDS: WARFARIN SOD 4 MG TAB PO SCH (16:36)
[2021-01-03 21:09] LABS: Partial Thromboplastin Ratio 1.3; Partial Thromboplastin Time 34.1 Seconds (21.0-31.0)
[2021-01-03] MEDS ORDERED: HEPARIN SOD (PORCINE) 1000 UNIT/ML IV ONE (21:30)
[2021-01-03] MEDS: DOXAZosin MESYLATE TAB 2 MG TAB PO SCH (21:39)
[2021-01-03] MEDS: MELATONIN 3 MG TAB PO SCH (21:40)
--- NOTE | 2021-01-03 22:37 | Hospitalist Progress Note ---
Date of Service January 03, 2021 Assessment & Plan (1) Pleural effusion: Plan: LEFT. s/p thoracentesis 12/[address] Mendez. 1700cc removed. Cultures and cytology negative. Lymphocytic, exudative as per lights criteria with respect to protein- pulmonology thinks this could be from chronic effusion or history of thoracentesis in the past s/p thoracentesis last month in [facility] as well -but this was transudate of Likely 2nd to ESRD status. If he reaccumulates in future, chemical pleurodesis should be considered Cont incentive spirometry. (2) Gastroparesis: Plan: Gastroparesis/cyclic vomiting "flare." N/V 2nd to above - had resolved but having intermittent nausea - especially on HD days Moving right-sided 6mm stone could have also caused symptoms but less likely given the lack of hydronephrosis, etc. Just to be sure checked a KUB x-ray on 01/03-showed unchanged position of 6 mm proximal right ureteral calculus at the level of L3 (3) Pericardial effusion: Plan: Echo performed this admission - effusion is smaller than last study. No evidence of tamponade. Suspect 2nd ESRD. Should have surveillance of this over next few months. (4) Ureteral calculus, right: Plan: at the [facility]. 6mm. no hydronephrosis. [facility] - they recommend outpatient f/u to discuss Rx options. KUB on 01/03 shows same position of 6 mm stone (5) Pulmonary embolism: Plan: dx 1 month ago, [facility]. CHERI. on coumadin. [facility] Previous hospitalist spoke with Dr Lennon 12/30 - she recommends a total weekly dose of about 27.5mg (~4mg each day). Coumadin was held for his thoracentesis. cont heparin bridge. Received 6 mg of Coumadin on 01/01 and 01/02 Continue Coumadin 4 mg daily INR 1.7 today Follow INR in the morning (6) ESRD (end stage renal disease): Plan: [facility] Nephrology consulted and HD needs appreciated. Schedule - M/W/F. (7) Dialysis patient: Plan: As above (8) Hypertension: Plan: With improved control today after addition of doxazosin Remains on carvedilol 25 mg twice daily, losartan 100 mg daily, amlodipine 5 mg BID. Continue doxazosin 2mg at HS. (9) Nonischemic cardiomyopathy: Plan: Chronic systolic. EF 40-45%. Cont BB. Cont ARB. HD for volume control. See above re: pleural effusion. (10) CAD (coronary artery disease): Plan: Lipitor. Non-obstructive. Cont BB. 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 lantus & novolog adjusted by pharmacy. most recent a1c 6.9% (12) Junctional rhythm: Plan: Had a little over an hour of an accelerated junctional rhythm with a heart rate of 100 on 01/03 Asymptomatic Continue to follow on telemetry Plan: PT consult completed - safe to return home w/ his parents Disposition - home, await INR to be >2 Admission and Anticipated Discharge Date Admission Date: December 28, 2020 Subjective Patient reports feeling well. He has no chest pain or shortness of breath, no abdominal pains. He is eating and drinking. No bleeding problems. For about an hour and 20 minutes today, he had an accelerated junctional rhythm but then went back in a sinus rhythm. He was completely asymptomatic with this. Review of Systems Review of Systems: All systems reviewed & are unremarkable except as noted in HPI & below Physical Exam Constitutional: WD/WN, vitals as above Eyes: + anicteric sclerae Neck: trachea midline, no thyromegaly Respiratory: normal respiratory effort, lungs clear to auscultation Cardiovascular: Rate/Rhythm: regular rate and regular rhythm Heart Sounds: + murmur (2/6 systolic murmur at the lower sternal border on left) Chest (Breasts): Chest: normal inspection of chest Gastrointestinal (Abdomen): normal bowel sounds, soft, nontender, no hepatosplenomegaly Musculoskeletal: Extremities: extremities normal to inspection; no cyanosis and no clubbing Skin: no rashes, warm and dry Neurologic: moves all extremities and awake; no focal motor deficits Psychiatric: A+Ox3, euthymic affect Lymphatic: no lymphedema Results & Data Results & Data ([facility]) Vital Signs (Past 12 Hours) Vital Signs Temp Pulse Pulse Pulse Resp BP BP 01/03/21 21:07 36.7 C 77 18 127/68 01/03/21 15:00 92 H 01/03/21 11:33 134/63 01/03/21 11:27 36.5 C 63 16 84/54 L Pulse Ox 01/03/21 21:07 94 01/03/21 15:00 01/03/21 11:33 01/03/21 11:27 90 Laboratory Results 01/03/21 01/03/21 01/03/21 Range/Units 20:41 20:16 16:09 PT (9.0-12.0) Seconds INR (0.9-1.1) APTT 34.1 H (21.0-31.0) Seconds PTT Ratio 1.3 POC Glucose 156 H 219 H (70-99) mg/dl Pleural Cholesterol mg/dL 01/03/21 01/03/21 01/03/21 Range/Units 13:52 11:04 07:39 PT (9.0-12.0) Seconds INR (0.9-1.1) APTT 72.8 H* (21.0-31.0) Seconds PTT Ratio 2.8 POC Glucose 201 H 76 (70-99) mg/dl Pleural Cholesterol mg/dL 01/03/21 01/03/21 12/31/20 Range/Units 06:22 00:37 Unknown PT 16.4 H (9.0-12.0) Seconds INR 1.7 H (0.9-1.1) APTT 66.8 H* (21.0-31.0) Seconds PTT Ratio 2.6 POC Glucose 74 (70-99) mg/dl Pleural Cholesterol 47 mg/dL PG Care Time/CCT Total # of Minutes Spent Total Time Spent with Patient: Total time spent is greater than 50% in coordination of care (as documented) at patient's floor/unit and/or counseling patient: Coding Level of Care Code 92564 Subseq Hosp Care Lvl 2 Diagnoses Pleural effusion J90 Gastroparesis K31.84 Pericardial effusion I31.3 Ureteral calculus, right N20.1 Pulmonary embolism I26.99 ESRD (end stage renal disease) N18.6 Dialysis patient Z99.2 Hypertension I10 Hypertension type: unspecified Nonischemic cardiomyopathy I42.8 CAD (coronary artery disease) I25.10 Coronary Disease-Associated Artery/Lesion type: [place] artery [place] vs. 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 transplanted heart: [place] heart Associated angina: without angina Qualified Code(s): I25.10 - Atherosclerotic heart disease of [place] coronary artery without angina pectoris
[2021-01-03] MEDS: diphenhydrAMINE Capsule 25 MG CAP PO PRN (23:18)
[2021-01-04] MEDS: INSULIN ASPART 100 UNITS/ML 3 ML PEN SC SCH ×6 (01:06→23:34)
[2021-01-04 03:42] LABS: Basophils # (auto) 0.03 K/uL (0-0.2); Basophils % (auto) 0.4 %; Eosinophils # (auto) 0.42 K/uL (0-0.5); Hematocrit (blood only) 30.5 % (42-52); Immature Granulocytes # (auto) 0.02 K/uL (0.00-0.02); Immature Granulocytes % (auto) 0.2 %; Lymphocytes # (auto) 2.09 K/uL (1.2-3.4); Lymphocytes % (auto) 24.7 %; Mean Corpuscular Hemoglobin 31.3 pg (25-34); Mean Corpuscular Hgb Conc 32.8 g/dL (32-36); Mean Corpuscular Volume 95.6 fL (80-100); Monocytes # (auto) 0.82 K/uL (0.11-0.59); Monocytes % (auto) 9.7 %; Neutrophils # (auto) 5.09 K/uL (1.4-6.5); Platelet Count 284 K/uL (130-400); RDW Standard Deviation 49.1 fL (36.4-46.3); Red Blood Count 3.19 M/uL (4.7-6.1); White Blood Count 8.47 K/uL (4.8-10.8)
[2021-01-04 04:02] LABS: Partial Thromboplastin Ratio 3.5; Prothrombin Time 19.5 Seconds (9.0-12.0)
[2021-01-04 04:22] LABS: BUN Creatinine Ratio 7.9 (10-20); Calcium 7.4 mg/dl (8.5-10.1); Creatinine Clr Calc Pharmacy 14.8 ml/min; Est GFR (African American) 12.3 ml/min; Est GFR (Non-African American) 10.6 ml/min; Potassium 4.4 mmol/L (3.5-5.1)
[2021-01-04 04:39] LABS: Partial Thromboplastin Time 92.9 Seconds (21.0-31.0)
[2021-01-04] MEDS ORDERED: SODIUM CHLORIDE 0.9% 1000ML 1,000 ML IV PRN (07:00)
[2021-01-04] MEDS ORDERED: HEPARIN SOD (PORCINE) 1000 UNIT/ML IV SCH (07:00)
[2021-01-04] MEDS ORDERED: EPOETIN ALFA 10,000 UNITS/ML VIAL IV SCH (07:00)
[2021-01-04] MEDS: ONDANSETRON 4 MG OD TAB PO PRN ×2 (07:35→14:24)
[2021-01-04] MEDS: LORazepam 0.5 MG TAB PO PRN (07:35)
[2021-01-04] MEDS: INSULIN GLARGINE SOLOSTAR 100 UNITS/ML 3 ML PEN SC SCH (09:15)
[2021-01-04] MEDS: HEPARIN SODIUM/DEXTROSE 25,000 UNITS/500 ML BAG IV SCH (09:21)
--- NOTE | 2021-01-04 10:12 | Pharmacy Report ---
Pharmacy Glycemic Short Note 2 - Date of Service January 04, 2021 - Glycemic Short BSG Results (Last 24 hours): 01/03/21 01/03/21 01/03/21 11:04 16:09 20:41 Glucose POC Glucose 201 H 219 H 156 H 01/04/21 01/04/21 01/04/21 00:51 03:18 07:30 Glucose 206 H POC Glucose 235 H 207 H OUTPATIENT ANTIDIABETIC REGIMEN: * Lantus 12 units SC AM * Novolog CR 30 over 150 mg/dL; carbohydrate ratio of 10 * HbA1c: 6.9% (12/27) * However, this result is likely somewhat unreliable in ESRD patients d/t interactions between the A1c analyzing technique and high levels of urea in ESRD, reduced RBC life span, iron deficiency anemia, and EPO admi nistration. HbA1c > 7.5% in ESRD patient may overestimate the extent of hyperglycemia in ESRD patients. ASSESSMENT: 01/04/21: * BSGs yesterday of 76, 201, 156, and 235 mg/dL * Patient scheduled for HD today - insulin needs tend to be reduced on these days, will continue Lantus 14 units today 12/31/20: * Patient received total of 50 units of insulin yesterday, of which 14 units were basal insulin * Fasting BSG elevated at 344 mg/dl, improving from day prior from 472 mg/dL - had increased basal insulin 15% from home dose yesterday to 14 units * Fasting BSG still above range this AM, will titrate basal further another ~15% increase from yesterday to 16 units this AM * Held IV insulin bolus this AM as patient is going to dialysis and BSGs tend to trend downward on dialysis days 12/30/20: * Patient developed persistent hyperglycemia starting last evening. Exact cause is unknown but it could be related to resuming a diet yesterday. * Fasting BSG of 503 with repeat of 472 mg/dL. Lantus was increased and patient was given an IV insulin bolus. * Tighten carb coverage for post prandial hyperglycemia. * Conservative changes made due to history of fluctuating glycemic control and gastroparesis. 12/27/20 * BSGs overnight was 331-250 mg/dL. Fasting BSG is 88 mg/dL-49 mg/dL. Patient received Lantus 12 units on 12/26/20 (confirmed no home dose of Lantus Thursday) plus 9 units of Novolog overnight. No subsequent insulin dosing since 0. * Patient had hypoglycemia episode at lunchtime due to lack of PO intake at breakfast time. * Work towards resuming Lantus in the morning. * Novolog scale that is looser since Lantus is being shifted earlier. Background * 50 yo M admitted overnight secondary to intractable nausea and vomiting. Pharmacy has been consulted to assist with inpatient glycemic management. Patient is a Type 1 Diabetic that is well know to pharmacy's glycemic service. * Admission BSG was 77 mg/dL this AM. It was unknown if patient took his AM dose of Lantus. Next BSG was not taken until almost 2100. It was 290 mg/dL and no insulin was ordered at that time. * Pharmacy was consulted around 2300 when BSG was 305 mg/dL with a repeat of 331 mg/dL. * Gave 12 units of Lantus at this time (home dose) * Started Novolog based on previous admission data. * Added overnight check to ensure BSG is trending downward PLAN FOR INPATIENT GLYCEMIC CONTROL: * Basal insulin - continue * Lantus 14 units SQ daily * Bolus insulin * NovoLog per scale ACHS or Q6hrs while NPO * Goal Range: Low 110 mg/dL - High 150 mg/dL * Correction Factor: 40 mg/dL/unit * Nutritional / Prandial insulin per carb ratio of 1 unit per 9 grams CHO consumed PLAN FOR DISCHARGE: * Based on current inpatient insulin needs, home regimen seems reasonable, provided he is not experiencing hypoglycemia as an outpatient
--- NOTE | 2021-01-04 10:29 | Dialysis Progress Note ---
Date of Service January 04, 2021 Assessment & Plan Admission and Anticipated Discharge Date Admission Date: December 28, 2020 Subjective Seen IN dialysis. Feels fine so far. AVF fine. MM moist. Chest _-Dec BS left. CVS--RRR. Abd--Soft non tender. ext--no edema. Labs reviewed. Na 130 A/p 1 ESRD--MWF. Do 3hr 30 mins 2k bath and take about 2.5 kilo off. 2 N/V--Chronic Issue. Defer to GI and primary team. Results & Data ([facility]) Vital Signs (Past 12 Hours) Vital Signs Temp Pulse Pulse Pulse Resp BP BP 01/04/21 10:00 88 182/87 H 01/04/21 09:40 87 186/86 H 01/04/21 09:34 88 185/89 H 01/04/21 09:26 36.7 C 84 01/04/21 09:00 01/04/21 07:39 36.6 C 18 L 80 96 H 184/77 H 01/04/21 04:02 36.6 C 81 18 161/73 H 01/04/21 00:00 57 L 01/03/21 23:28 36.8 C 80 18 146/66 H Pulse Ox Pulse Ox 01/04/21 10:00 01/04/21 09:40 01/04/21 09:34 01/04/21 09:26 01/04/21 09:00 97 01/04/21 07:39 96 01/04/21 04:02 92 01/04/21 00:00 01/03/21 23:28 94
[2021-01-04] MEDS: HEPARIN SOD (PORCINE) 1000 UNIT/ML IV SCH ×3 (11:04→11:46)
[2021-01-04] MEDS: METOCLOPRAMIDE HCL INJ 5 MG/ML 2 ML VIAL IV PRN ×2 (11:57→17:10)
[2021-01-04] MEDS ORDERED: LORazepam 0.5 MG TAB PO STA (14:19)
[2021-01-04] MEDS: buPROPion SR 100 MG TABCR PO SCH (14:25)
[2021-01-04] MEDS: amLODIPine BESYLATE 5 MG TAB PO SCH ×2 (14:25→19:57)
[2021-01-04] MEDS: carvediloL 25 MG TAB PO SCH ×2 (14:25→17:08)
[2021-01-04] MEDS: ATORVASTATIN 10 MG TAB PO SCH (14:26)
[2021-01-04] MEDS: NEPHROCAPS PO SCH (14:26)
[2021-01-04] MEDS: CHOLECALCIFEROL 1,000 UNITS 25 MCG TAB PO SCH (14:26)
[2021-01-04] MEDS: LOSARTAN POTASSIUM 50 MG TAB PO SCH (14:26)
[2021-01-04] MEDS: PANTOprazole 40 MG TAB PO SCH ×2 (14:26→19:58)
[2021-01-04] MEDS: SERTRALINE HCL 100 MG TABLET PO SCH (14:26)
[2021-01-04 14:34] LABS: Partial Thromboplastin Ratio 1.2; Partial Thromboplastin Time 32.4 Seconds (21.0-31.0)
[2021-01-04] MEDS: PROCHLORPERAZINE 10 MG in SYRINGE 8 ML IV PRN (14:37)
[2021-01-04] MEDS: WARFARIN SOD 4 MG TAB PO SCH (17:07)
[2021-01-04] MEDS: CARBOHYDRATES FOR HYPOGLYCEMIA PO PRN (17:09)
[2021-01-04] MEDS ORDERED: hydrALAZINE HCL 20 MG/ML VIAL IV PRN (18:27)
--- NOTE | 2021-01-04 18:34 | Hospitalist Progress Note ---
Date of Service January 04, 2021 Assessment & Plan (1) Pleural effusion: Plan: LEFT. s/p thoracentesis 12/[address] Mendez. 1700cc removed. Cultures and cytology negative. Lymphocytic, exudative as per lights criteria with respect to protein- pulmonology thinks this could be from chronic effusion or history of thoracentesis in the past s/p thoracentesis last month in [facility] as well -but this was transudative Likely 2nd to ESRD status. If he reaccumulates in future, chemical pleurodesis should be considered Cont incentive spirometry. (2) Gastroparesis: Plan: Gastroparesis/cyclic vomiting "flare." N/V 2nd to above - had resolved but having intermittent nausea - especially on HD days-having bad nausea on 01/04 but not vomiting -continue Compazine prn, ZOfran prn, reglan prn KUB x-ray on 01/03-showed unchanged position of 6 mm proximal right ureteral calculus at the level of L3-not the cause of his nausea as his nausea directly correlates with dialysis days (3) Pericardial effusion: Plan: Echo performed this admission - effusion is smaller than last study. No evidence of tamponade. Suspect 2nd ESRD. Should have surveillance of this over next few months. (4) Ureteral calculus, right: Plan: at the [facility]. 6mm. no hydronephrosis. [facility] - they recommend outpatient f/u to discuss Rx options. KUB on 01/03 shows same position of 6 mm stone (5) Pulmonary embolism: Plan: dx 1 month ago, [facility]. CHERI. on coumadin. [facility]. Previous hospitalist spoke with Dr Lennon 12/30 - she recommends a total weekly dose of about 27.5mg (~4mg each day). Coumadin was held for his thoracentesis. wa son heparin bridge, but INR finally therapeutic today at 2.0--> STOP heparin gtt on 01/04 Received 6 mg of Coumadin on 01/01 and 01/02 Continue Coumadin 4 mg daily Follow INR in the morning (6) ESRD (end stage renal disease): Plan: [facility] Nephrology consulted and HD needs appreciated. Schedule - M/W/F. received HD on 7/30 plan to dc to home on 01/05 and restart outpt HD (7) Dialysis patient: Plan: As above (8) Hypertension: Plan: With improved control after addition of doxazosin, however significantly elevated with nausea after HD today Remains on carvedilol 25 mg twice daily, losartan 100 mg daily, amlodipine 5 mg BID. Continue doxazosin 2mg at HS. Perhaps his BP meds should NOT be held prior to HD add on IV hydralazine prn SBP>180 (9) Nonischemic cardiomyopathy: Plan: Chronic systolic. EF 40-45%. Cont BB. Cont ARB. HD for volume control. See above re: pleural effusion. (10) CAD (coronary artery disease): Plan: Lipitor. Non-obstructive. 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 lantus & novolog adjusted by pharmacy. most recent a1c 6.9% (12) Junctional rhythm: Plan: Had a little over an hour of an accelerated junctional rhythm with a heart rate of 100 on 01/03 Asymptomatic Continue to follow on telemetry-none since that time Plan: PT consult completed - safe to return home w/ his parents when medically stable Disposition - plan to dc to home Sat if nausea improved, BP controlled, and INR remains therapeutic Admission and Anticipated Discharge Date Admission Date: December 28, 2020 Subjective Pt feels terrible after HD and has bad nausea. BPs elevated and received morning meds at 1430. Denies SOB or CP, no abd pain. Tele with [facility] Review of Systems Review of Systems: All systems reviewed & are unremarkable except as noted in HPI & below Physical Exam Constitutional: WD/WN, vitals as above Eyes: + anicteric sclerae Neck: trachea midline, no thyromegaly Respiratory: normal respiratory effort, lungs clear to auscultation Cardiovascular: Rate/Rhythm: regular rate and regular rhythm Heart Sounds: + murmur (2/6 systolic murmur at the lower sternal border on left) Chest (Breasts): Chest: normal inspection of chest Gastrointestinal (Abdomen): normal bowel sounds, soft, nontender, no hepatosplenomegaly Musculoskeletal: Extremities: extremities normal to inspection; no cyanosis and no clubbing Skin: no rashes, warm and dry Neurologic: moves all extremities and awake; no focal motor deficits Lymphatic: no lymphedema Results & Data Results & Data ([facility]) Vital Signs (Past 12 Hours) Vital Signs Temp Pulse Pulse Pulse Resp BP BP 01/04/21 17:52 86 01/04/21 15:21 37.1 C 93 H 19 197/78 H 01/04/21 14:00 37.1 C 93 H 206/91 H 01/04/21 13:20 88 192/82 H 01/04/21 13:00 85 178/83 H 01/04/21 12:40 85 176/76 H 01/04/21 12:20 84 176/79 H 01/04/21 12:00 85 180/80 H 01/04/21 11:40 91 H 183/81 H 01/04/21 11:20 91 H 185/91 H 01/04/21 11:00 90 177/84 H 01/04/21 10:40 87 165/82 H 01/04/21 10:32 78 01/04/21 10:20 87 178/82 H 01/04/21 10:00 88 182/87 H 01/04/21 09:40 87 186/86 H 01/04/21 09:34 88 185/89 H 01/04/21 09:26 36.7 C 84 01/04/21 09:00 01/04/21 07:39 36.6 C 18 L 80 96 H 184/77 H Pulse Ox Pulse Ox 01/04/21 17:52 01/04/21 15:21 97 01/04/21 14:00 01/04/21 13:20 01/04/21 13:00 01/04/21 12:40 01/04/21 12:20 01/04/21 12:00 01/04/21 11:40 01/04/21 11:20 01/04/21 11:00 01/04/21 10:40 01/04/21 10:32 01/04/21 10:20 01/04/21 10:00 01/04/21 09:40 01/04/21 09:34 01/04/21 09:26 01/04/21 09:00 97 01/04/21 07:39 96 Laboratory Results 01/04/21 01/04/21 01/04/21 Range/Units 17:27 17:27 17:01 WBC (4.8-10.8) K/uL RBC (4.7-6.1) M/uL Hgb (14.0-18.0) g/dL Hct (42-52) % MCV (80-100) fL MCH (25-34) pg MCHC (32-36) g/dL RDW Std Deviation (36.4-46.3) fL RDW Coeff of Kami (11.5-14.5) % Plt Count (130-400) K/uL MPV (7.4-10.4) fL Immature Gran % (Auto) % Neut % (Auto) % Lymph % (Auto) % [place] % (Auto) % Eos % (Auto) % Baso % (Auto) % Neut # (Auto) (1.4-6.5) K/uL Lymph # (Auto) (1.2-3.4) K/uL [place] # (Auto) (0.11-0.59) K/uL Eos # (Auto) (0-0.5) K/uL Baso # (Auto) (0-0.2) K/uL Immature Gran # (Auto) (0.00-0.02) K/uL PT (9.0-12.0) Seconds INR (0.9-1.1) APTT (21.0-31.0) Seconds PTT Ratio Sodium (136-145) mmol/L Potassium (3.5-5.1) mmol/L Chloride (98-107) mmol/L Carbon Dioxide (21-32) mmol/L Anion Gap (3-11) BUN (7-18) mg/dl Creatinine (0.6-1.4) mg/dl Est Cr Clr Drug Dosing ml/min Est GFR ( Amer) ml/min Est GFR (Non-Af Amer) ml/min BUN/Creatinine Ratio (10-20) Glucose (70-99) mg/dl POC Glucose 67 L* 67 L* 59 L* (70-99) mg/dl Calcium (8.5-10.1) mg/dl 01/04/21 01/04/21 01/04/21 Range/Units 17:00 14:30 14:07 WBC (4.8-10.8) K/uL RBC (4.7-6.1) M/uL Hgb (14.0-18.0) g/dL Hct (42-52) % MCV (80-100) fL MCH (25-34) pg MCHC (32-36) g/dL RDW Std Deviation (36.4-46.3) fL RDW Coeff of Kami (11.5-14.5) % Plt Count (130-400) K/uL MPV (7.4-10.4) fL Immature Gran % (Auto) % Neut % (Auto) % Lymph % (Auto) % [place] % (Auto) % Eos % (Auto) % Baso % (Auto) % Neut # (Auto) (1.4-6.5) K/uL Lymph # (Auto) (1.2-3.4) K/uL [place] # (Auto) (0.11-0.59) K/uL Eos # (Auto) (0-0.5) K/uL Baso # (Auto) (0-0.2) K/uL Immature Gran # (Auto) (0.00-0.02) K/uL PT (9.0-12.0) Seconds INR (0.9-1.1) APTT 32.4 H (21.0-31.0) Seconds PTT Ratio 1.2 Sodium (136-145) mmol/L Potassium (3.5-5.1) mmol/L Chloride (98-107) mmol/L Carbon Dioxide (21-32) mmol/L Anion Gap (3-11) BUN (7-18) mg/dl Creatinine (0.6-1.4) mg/dl Est Cr Clr Drug Dosing ml/min Est GFR ( Amer) ml/min Est GFR (Non-Af Amer) ml/min BUN/Creatinine Ratio (10-20) Glucose (70-99) mg/dl POC Glucose 61 L* 74 (70-99) mg/dl Calcium (8.5-10.1) mg/dl 01/04/21 01/04/21 01/04/21 Range/Units 11:52 07:30 03:18 WBC (4.8-10.8) K/uL RBC (4.7-6.1) M/uL Hgb (14.0-18.0) g/dL Hct (42-52) % MCV (80-100) fL MCH (25-34) pg MCHC (32-36) g/dL RDW Std Deviation (36.4-46.3) fL RDW Coeff of Kami (11.5-14.5) % Plt Count (130-400) K/uL MPV (7.4-10.4) fL Immature Gran % (Auto) % Neut % (Auto) % Lymph % (Auto) % [place] % (Auto) % Eos % (Auto) % Baso % (Auto) % Neut # (Auto) (1.4-6.5) K/uL Lymph # (Auto) (1.2-3.4) K/uL [place] # (Auto) (0.11-0.59) K/uL Eos # (Auto) (0-0.5) K/uL Baso # (Auto) (0-0.2) K/uL Immature Gran # (Auto) (0.00-0.02) K/uL PT (9.0-12.0) Seconds INR (0.9-1.1) APTT (21.0-31.0) Seconds PTT Ratio Sodium 130 L (136-145) mmol/L Potassium 4.4 (3.5-5.1) mmol/L Chloride 97 L (98-107) mmol/L Carbon Dioxide 28 (21-32) mmol/L Anion Gap 5.0 (3-11) BUN 45 H (7-18) mg/dl Creatinine 5.72 H* D (0.6-1.4) mg/dl Est Cr Clr Drug Dosing 14.8 ml/min Est GFR ( Amer) 12.3 ml/min Est GFR (Non-Af Amer) 10.6 ml/min BUN/Creatinine Ratio 7.9 L (10-20) Glucose 206 H (70-99) mg/dl POC Glucose 115 H 207 H (70-99) mg/dl Calcium 7.4 L (8.5-10.1) mg/dl 01/04/21 01/04/21 01/04/21 Range/Units 03:18 03:18 00:51 WBC 8.47 (4.8-10.8) K/uL RBC 3.19 L (4.7-6.1) M/uL Hgb 10.0 L (14.0-18.0) g/dL Hct 30.5 L (42-52) % MCV 95.6 (80-100) fL MCH 31.3 (25-34) pg MCHC 32.8 (32-36) g/dL RDW Std Deviation 49.1 H (36.4-46.3) fL RDW Coeff of Kami 14.0 (11.5-14.5) % Plt Count 284 (130-400) K/uL MPV 9.0 (7.4-10.4) fL Immature Gran % (Auto) 0.2 % Neut % (Auto) 60.0 % Lymph % (Auto) 24.7 % Routt % (Auto) 9.7 % Eos % (Auto) 5.0 % Baso % (Auto) 0.4 % Neut # (Auto) 5.09 (1.4-6.5) K/uL Lymph # (Auto) 2.09 (1.2-3.4) K/uL [place] # (Auto) 0.82 H (0.11-0.59) K/uL Eos # (Auto) 0.42 (0-0.5) K/uL Baso # (Auto) 0.03 (0-0.2) K/uL Immature Gran # (Auto) 0.02 (0.00-0.02) K/uL PT 19.5 H (9.0-12.0) Seconds INR 2.0 H (0.9-1.1) APTT 92.9 H* (21.0-31.0) Seconds PTT Ratio 3.5 Sodium (136-145) mmol/L Potassium (3.5-5.1) mmol/L Chloride (98-107) mmol/L Carbon Dioxide (21-32) mmol/L Anion Gap (3-11) BUN (7-18) mg/dl Creatinine (0.6-1.4) mg/dl Est Cr Clr Drug Dosing ml/min Est GFR ( Amer) ml/min Est GFR (Non-Af Amer) ml/min BUN/Creatinine Ratio (10-20) Glucose (70-99) mg/dl POC Glucose 235 H (70-99) mg/dl Calcium (8.5-10.1) mg/dl 01/03/21 01/03/21 Range/Units 20:41 20:16 WBC (4.8-10.8) K/uL RBC (4.7-6.1) M/uL Hgb (14.0-18.0) g/dL Hct (42-52) % MCV (80-100) fL MCH (25-34) pg MCHC (32-36) g/dL RDW Std Deviation (36.4-46.3) fL RDW Coeff of Kami (11.5-14.5) % Plt Count (130-400) K/uL MPV (7.4-10.4) fL Immature Gran % (Auto) % Neut % (Auto) % Lymph % (Auto) % [place] % (Auto) % Eos % (Auto) % Baso % (Auto) % Neut # (Auto) (1.4-6.5) K/uL Lymph # (Auto) (1.2-3.4) K/uL [place] # (Auto) (0.11-0.59) K/uL Eos # (Auto) (0-0.5) K/uL Baso # (Auto) (0-0.2) K/uL Immature Gran # (Auto) (0.00-0.02) K/uL PT (9.0-12.0) Seconds INR (0.9-1.1) APTT 34.1 H (21.0-31.0) Seconds PTT Ratio 1.3 Sodium (136-145) mmol/L Potassium (3.5-5.1) mmol/L Chloride (98-107) mmol/L Carbon Dioxide (21-32) mmol/L Anion Gap (3-11) BUN (7-18) mg/dl Creatinine (0.6-1.4) mg/dl Est Cr Clr Drug Dosing ml/min Est GFR ( Amer) ml/min Est GFR (Non-Af Amer) ml/min BUN/Creatinine Ratio (10-20) Glucose (70-99) mg/dl POC Glucose 156 H (70-99) mg/dl Calcium (8.5-10.1) mg/dl PG Care Time/CCT Total # of Minutes Spent Total Time Spent with Patient: Total time spent is greater than 50% in coordination of care (as documented) at patient's floor/unit and/or counseling patient: Coding Level of Care Code 14898 Subseq Hosp Care Lvl 2 Diagnoses Pleural effusion J90 Gastroparesis K31.84 Pericardial effusion I31.3 Ureteral calculus, right N20.1 Pulmonary embolism I26.99 ESRD (end stage renal disease) N18.6 Dialysis patient Z99.2 Hypertension I10 Hypertension type: unspecified Nonischemic cardiomyopathy I42.8 CAD (coronary artery disease) I25.10 Coronary Disease-Associated Artery/Lesion type: [place] artery [place] vs. 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 transplanted heart: [place] heart Associated angina: without angina Qualified Code(s): I25.10 - Atherosclerotic heart disease of [place] coronary artery without angina pectoris
[2021-01-04] MEDS: ONDANSETRON INJ 2 MG/ML 2 ML VIAL IV PRN (19:55)
[2021-01-04] MEDS: DOXAZosin MESYLATE TAB 2 MG TAB PO SCH (19:58)
[2021-01-04] MEDS: MELATONIN 3 MG TAB PO SCH (19:58)
[2021-01-05] MEDS: PROCHLORPERAZINE 10 MG in SYRINGE 8 ML IV PRN (01:33)
[2021-01-05 07:48] LABS: Basophils # (auto) 0.04 K/uL (0-0.2); Basophils % (auto) 0.6 %; Eosinophils % (auto) 4.3 %; Hemoglobin 11.2 g/dL (14.0-18.0); Immature Granulocytes # (auto) 0.04 K/uL (0.00-0.02); Immature Granulocytes % (auto) 0.6 %; Lymphocytes # (auto) 1.49 K/uL (1.2-3.4); Lymphocytes % (auto) 21.2 %; Mean Corpuscular Hemoglobin 31.1 pg (25-34); Mean Corpuscular Volume 97.2 fL (80-100); Mean Platelet Volume 8.9 fL (7.4-10.4); Monocytes % (auto) 12.8 %; Neutrophils # (auto) 4.27 K/uL (1.4-6.5); Neutrophils % (auto) 60.5 %; Platelet Count 279 K/uL (130-400); RDW Standard Deviation 50.1 fL (36.4-46.3); White Blood Count 7.04 K/uL (4.8-10.8)
[2021-01-05] MEDS: INSULIN ASPART 100 UNITS/ML 3 ML PEN SC SCH ×4 (07:50→20:51)
[2021-01-05] MEDS: diphenhydrAMINE 50 MG/ML VIAL IV PRN (07:55)
[2021-01-05 07:57] LABS: INR 2.1 (0.9-1.1); Prothrombin Time 20.2 Seconds (9.0-12.0)
[2021-01-05 08:21] LABS: BUN Creatinine Ratio 4.9 (10-20); Calcium 8.3 mg/dl (8.5-10.1); Creatinine Clr Calc Pharmacy 20.1 ml/min; Est GFR (Non-African American) 17.2 ml/min; Potassium 4.1 mmol/L (3.5-5.1)
[2021-01-05] MEDS: SERTRALINE HCL 100 MG TABLET PO SCH (08:55)
[2021-01-05] MEDS: buPROPion SR 100 MG TABCR PO SCH (08:55)
[2021-01-05] MEDS: CHOLECALCIFEROL 1,000 UNITS 25 MCG TAB PO SCH (08:55)
[2021-01-05] MEDS: PANTOprazole 40 MG TAB PO SCH ×2 (08:55→20:50)
[2021-01-05] MEDS: LOSARTAN POTASSIUM 50 MG TAB PO SCH (08:56)
[2021-01-05] MEDS: amLODIPine BESYLATE 5 MG TAB PO SCH ×2 (08:56→20:50)
[2021-01-05] MEDS: ATORVASTATIN 10 MG TAB PO SCH (08:56)
[2021-01-05] MEDS: NEPHROCAPS PO SCH (08:56)
[2021-01-05] MEDS: INSULIN GLARGINE SOLOSTAR 100 UNITS/ML 3 ML PEN SC SCH (08:57)
[2021-01-05] MEDS: carvediloL 25 MG TAB PO SCH ×2 (08:58→16:34)
[2021-01-05] MEDS: METOCLOPRAMIDE HCL INJ 5 MG/ML 2 ML VIAL IV PRN (12:39)
--- NOTE | 2021-01-05 13:36 | Hospitalist Progress Note ---
Date of Service January 05, 2021 Assessment & Plan (1) Pleural effusion: Plan: LEFT. s/p thoracentesis 12/[address] Mendez. 1700cc removed. Cultures and cytology negative. Lymphocytic, exudative as per lights criteria with respect to protein- pulmonology thinks this could be from chronic effusion or history of thoracentesis in the past s/p thoracentesis last month in [facility] as well -but this was transudative Likely 2nd to ESRD status. If he reaccumulates in future, chemical pleurodesis should be considered Cont incentive spirometry. (2) Gastroparesis: Plan: Gastroparesis/cyclic vomiting "flare." N/V 2nd to above - had resolved but having intermittent nausea - especially on HD days-having bad nausea on 01/04 but not vomiting -continue Compazine prn, reglan prn - change ondansetron to 8mg PO TIDM KUB x-ray on 01/03-showed unchanged position of 6 mm proximal right ureteral calculus at the level of L3-not the cause of his nausea as his nausea directly correlates with dialysis days (3) Pericardial effusion: Plan: Echo performed this admission - effusion is smaller than last study. No evidence of tamponade. Suspect 2nd ESRD. Should have surveillance of this over next few months. (4) Ureteral calculus, right: Plan: at the [facility]. 6mm. no hydronephrosis. [facility] - they recommend outpatient f/u to discuss Rx options. KUB on 01/03 shows same position of 6 mm stone (5) Pulmonary embolism: Plan: dx 1 month ago, [facility]. CHERI. on coumadin. [facility]. Previous hospitalist spoke with Dr Lennon 12/30 - she recommends a total weekly dose of about 27.5mg (~4mg each day). Coumadin was held for his thoracentesis. wa son heparin bridge, but INR finally therapeutic today at 2.0--> STOP heparin gtt on 01/04 Received 6 mg of Coumadin on 01/01 and 01/02 Continue Coumadin 4 mg daily Follow INR in the morning (6) ESRD (end stage renal disease): Plan: [facility] Nephrology consulted and HD needs appreciated. Schedule - M/W/F. received HD on 01/04 plan to dc to home on 01/05 and restart outpt HD (7) Dialysis patient: Plan: As above (8) Hypertension: Plan: With improved control after addition of doxazosin, however significantly elevated with nausea after HD today Remains on carvedilol 25 mg twice daily, losartan 100 mg daily, amlodipine 5 mg BID. Continue doxazosin 2mg at HS. Perhaps his BP meds should NOT be held prior to HD add on IV hydralazine prn SBP>180 (9) Nonischemic cardiomyopathy: Plan: Chronic systolic. EF 40-45%. Cont BB. Cont ARB. HD for volume control. See above re: pleural effusion. (10) CAD (coronary artery disease): Plan: Lipitor. Non-obstructive. 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 lantus & novolog adjusted by pharmacy. most recent a1c 6.9% (12) Junctional rhythm: Plan: Had a little over an hour of an accelerated junctional rhythm with a heart rate of 100 on 01/03 Asymptomatic Continue to follow on telemetry-none since that time Plan: PT consult completed - safe to return home w/ his parents when medically stable Disposition - plan to dc to home Sat if nausea improved, BP controlled, and INR remains therapeutic Admission and Anticipated Discharge Date Admission Date: December 28, 2020 Subjective Ongoing nausea and vomiting today. Associated watery diarrhea. Prio history of c. diff but at that time he was also having fevers. All anti-emetics and PRN and offered regular ondansetron to see if that would help which he agrees. In the past stress, hyperglycemia and hypertension have all been indicated with triggering his gastroparesis. He denies any abdominal pain. This is similar to prior episodes I have seen him although notably he appears to have put on some weight. Review of Systems Review of Systems: All systems reviewed & are unremarkable except as noted in HPI & below Physical Exam Constitutional: cooperative; + not well nourished, no acute distress and no altered mental status Eyes: + anicteric sclerae ENMT: external ear and nose normal, oropharynx normal Mouth: + dry oral mucous membranes Neck: trachea midline, no thyromegaly Respiratory: normal respiratory effort; no respiratory distress and not tachypneic Auscultation: lungs clear to auscultation bilaterally; no crackles, no rales, no rhonchi and no wheezes Cardiovascular: Rate/Rhythm: regular rate and regular rhythm Heart Sounds: normal S1, normal S2 and + murmur (2/6 systolic murmur at the lower sternal border on left) Extremities: + AV fistula (left arm with bruit ) Gastrointestinal (Abdomen): Inspection/Auscultation: abdomen normal to inspection and + hypoactive bowel sounds Percussion/Palpation: abdomen soft; abdomen nontender, no guarding and abdomen not rigid Musculoskeletal: Extremities: extremities normal to inspection; no cyanosis and no clubbing Skin: no rashes, warm and dry Neurologic: moves all extremities and awake; no focal motor deficits Psychiatric: Orientation: alert and oriented x 3 Affect: + flat affect Lymphatic: no lymphedema Results & Data Results & Data ([facility]) Vital Signs (Past 12 Hours) Vital Signs Temp Pulse Pulse Pulse Resp BP BP 01/05/21 12:45 77 153/72 H 01/05/21 11:00 36.7 C 82 18 161/70 H 01/05/21 08:00 36.6 C 82 18 153/71 H 01/05/21 07:00 79 01/05/21 04:00 37.1 C 80 18 156/79 H Pulse Ox 01/05/21 12:45 01/05/21 11:00 94 01/05/21 08:00 92 01/05/21 07:00 01/05/21 04:00 94 PG Care Time/CCT Total # of Minutes Spent Total Time Spent with Patient: Total time spent is greater than 50% in coordination of care (as documented) at patient's floor/unit and/or counseling patient: Coding Level of Care Code 48658 Subseq Hosp Care Lvl 2 Diagnoses Pleural effusion J90 Gastroparesis K31.84 Pericardial effusion I31.3 Ureteral calculus, right N20.1 Pulmonary embolism I26.99 ESRD (end stage renal disease) N18.6 Dialysis patient Z99.2 Hypertension I10 Hypertension type: unspecified Nonischemic cardiomyopathy I42.8 CAD (coronary artery disease) I25.10 Associated angina: without angina Coronary Disease-Associated Artery/Lesion type: hoh artery [place] vs. 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 transplanted heart: hoh heart Qualified Code(s): I25.10 - Atherosclerotic heart disease of hoh coronary artery without angina pectoris (2) Hypertension Hypertension type: unspecified Qualified Code(s): I10 - Essential (primary) hypertension
[2021-01-05] MEDS: WARFARIN SOD 4 MG TAB PO SCH (16:33)
[2021-01-05] MEDS ORDERED: hydrALAZINE HCL 20 MG/ML VIAL IV PRN (17:58)
[2021-01-05] MEDS: diphenhydrAMINE Capsule 25 MG CAP PO PRN (20:49)
[2021-01-05] MEDS: DOXAZosin MESYLATE TAB 2 MG TAB PO SCH (20:50)
[2021-01-05] MEDS: MELATONIN 3 MG TAB PO SCH (20:50)
[2021-01-06] MEDS: PROCHLORPERAZINE 10 MG in SYRINGE 8 ML IV PRN ×3 (04:57→22:29)
[2021-01-06] MEDS: METOCLOPRAMIDE HCL INJ 5 MG/ML 2 ML VIAL IV PRN ×2 (07:07→19:41)
--- NOTE | 2021-01-06 08:01 | Electrocardiogram Report ---
Test Reason : Blood Pressure : / mmHG Vent. Rate : 102 BPM Atrial Rate : 094 BPM P-R Int : 000 ms QRS Dur : 090 ms QT Int : 374 ms P-R-T Axes : 000 -05 108 degrees QTc Int : 487 ms Accelerated Junctional rhythm Nonspecific T wave abnormality Lateral leads Abnormal ECG When compared with ECG of 26-DEC-2020 09:29, Junctional rhythm has replaced Sinus rhythm Nonspecific T wave abnormality no longer evident in Inferior leads T wave inversion no longer evident in Lateral leads Confirmed by Len Ruvalcaba ([id number]) on 01/06/2021 8:00:57 AM Referred By: REFERRED SELF Confirmed By:Len Ruvalcaba
[2021-01-06] MEDS: CHOLECALCIFEROL 1,000 UNITS 25 MCG TAB PO SCH (08:31)
[2021-01-06] MEDS: buPROPion SR 100 MG TABCR PO SCH (08:31)
[2021-01-06] MEDS: SERTRALINE HCL 100 MG TABLET PO SCH (08:31)
[2021-01-06] MEDS: ATORVASTATIN 10 MG TAB PO SCH (08:31)
[2021-01-06] MEDS: NEPHROCAPS PO SCH (08:31)
[2021-01-06] MEDS: PANTOprazole 40 MG TAB PO SCH ×2 (08:32→21:03)
[2021-01-06] MEDS: amLODIPine BESYLATE 5 MG TAB PO SCH ×2 (08:32→21:03)
[2021-01-06] MEDS: LOSARTAN POTASSIUM 50 MG TAB PO SCH (08:32)
[2021-01-06] MEDS: carvediloL 25 MG TAB PO SCH ×2 (08:32→16:55)
[2021-01-06] MEDS: INSULIN ASPART 100 UNITS/ML 3 ML PEN SC SCH ×4 (08:34→21:04)
[2021-01-06] MEDS: INSULIN GLARGINE SOLOSTAR 100 UNITS/ML 3 ML PEN SC SCH (08:35)
--- NOTE | 2021-01-06 08:47 | Pharmacy Report ---
Pharmacy Glycemic Short Note 2 - Date of Service January 06, 2021 - Glycemic Short BSG Results (Last 24 hours): 01/05/21 01/05/21 01/05/21 11:28 16:30 20:00 POC Glucose 123 H 154 H 153 H 01/06/21 01/06/21 07:42 07:43 POC Glucose 336 H* 254 H OUTPATIENT ANTIDIABETIC REGIMEN: * Lantus 12 units SC AM * Novolog CR 30 over 150 mg/dL; carbohydrate ratio of 10 * HbA1c: 6.9% (12/27) * However, this result is likely somewhat unreliable in ESRD patients d/t interactions between the A1c analyzing technique and high levels of urea in ESRD, reduced RBC life span, iron deficiency anemia, and EPO administration. HbA1c > 7.5% in ESRD patient may overestimate the extent of hyperglycemia in ESRD patients. ASSESSMENT: 01/06/21 * BSGs yesterday were [phone] mg/dL. Patient received 25 units of insulin (14 units of basal and 11 units of bolus). * Continue same regimen for now. Fasting is elevated today at 254 mg/dL which is okay. Correctional insulin is appropriate. * Dialysis tomorrow. Will consider a trial of Lantus 13 units but not entered until fasting evaluated. 01/04/21: * BSGs yesterday of 76, 201, 156, and 235 mg/dL * Patient scheduled for HD today - insulin needs tend to be reduced on these days, will continue Lantus 14 units today 12/31/20: * Patient received total of 50 units of insulin yesterday, of which 14 units were basal insulin * Fasting BSG elevated at 344 mg/dl, improving from day prior from 472 mg/dL - had increased basal insulin 15% from home dose yesterday to 14 units * Fasting BSG still above range this AM, will titrate basal further another ~15% increase from yesterday to 16 units this AM * Held IV insulin bolus this AM as patient is going to dialysis and BSGs tend to trend downward on dialysis days Background * 50 yo M admitted overnight secondary to intractable nausea and vomiting. Pharmacy has been consulted to assist with inpatient glycemic management. Patient is a Type 1 Diabetic that is well know to pharmacy's glycemic service. * Admission BSG was 77 mg/dL this AM. It was unknown if patient took his AM dose of Lantus. Next BSG was not taken until almost 2100. It was 290 mg/dL and no insulin was ordered at that time. * Pharmacy was consulted around 2300 when BSG was 305 mg/dL with a repeat of 331 mg/dL. * Gave 12 units of Lantus at this time (home dose) * Started Novolog based on previous admission data. * Added overnight check to ensure BSG is trending downward PLAN FOR INPATIENT GLYCEMIC CONTROL: * Basal insulin - continue * Lantus 14 units SQ daily * Bolus insulin * NovoLog per scale ACHS or Q6hrs while NPO * Goal Range: Low 110 mg/dL - High 150 mg/dL * Correction Factor: 40 mg/dL/unit * Nutritional / Prandial insulin per carb ratio of 1 unit per 9 grams CHO consumed PLAN FOR DISCHARGE: * Based on current inpatient insulin needs, home regimen seems reasonable, provided he is not experiencing hypoglycemia as an outpatient
[2021-01-06] MEDS: ONDANSETRON 8MG OD TAB PO SCH ×3 (09:43→16:55)
--- NOTE | 2021-01-06 09:50 | Electrocardiogram Report ---
Test Reason : Blood Pressure : / mmHG Vent. Rate : 084 BPM Atrial Rate : 084 BPM P-R Int : 210 ms QRS Dur : 086 ms QT Int : 392 ms P-R-T Axes : 069 -19 103 degrees QTc Int : 463 ms Sinus rhythm with 1st degree A-V block Left atrial enlargement Nonspecific T wave abnormality Lateral leads Abnormal ECG When compared with ECG of 03-JAN-2021 16:32, Sinus rhythm has replaced Junctional rhythm Confirmed by Len Ruvalcaba ([id number]) on 01/06/2021 9:50:05 AM Referred By: REFERRED SELF Confirmed By:Len Ruvalcaba
--- NOTE | 2021-01-06 10:37 | Nephrology Progress Note ---
Date of Service January 06, 2021 Assessment & Plan (1) ESRD (end stage renal disease): Plan: Patient with ESRD on dialysis Thursday. He had dialysis Thursday which was uneventful. Electrolytes are stable no signs of volume overload. No indication for dialysis today. Next dialysis will be Thursday and this can be as an outpatient. (2) Hypertension: Plan: Blood pressure is acceptable. Continue current regimen including amlodipine, losartan and Coreg 25 mg twice daily. Admission and Anticipated Discharge Date Admission Date: December 28, 2020 Subjective Feels back to baseline today. no N/V since am. no SOB , No Edema. Review of Systems Review of Systems: All other systems were reviewed and negative except as noted in HPI Physical Exam Physical Exam: General exam: Appears comfortable, no acute distress HEENT: Pupils are equal and reactive to light Neck: No JVD, neck is supple trachea is midline Respiratory system: Clear breath sounds bilaterally. Gastrointestinal: Abdomen is soft, non distended, non tender, bowel sounds are present CVS: Regular rate and rhythm. No murmurs, rubs or gallops Musculoskeletal: No joint or muscle tenderness Extremities: Non tender, Trace edema, peripheral pulses are present Neuro: Oriented, no tremors, no focal neurological deficits Skin: No rashes Results & Data ([facility]) Vital Signs (Past 12 Hours) Vital Signs Temp Pulse Pulse Resp BP Pulse Ox 01/06/21 08:00 36.5 C 83 18 164/62 H 93 01/06/21 07:00 79 01/06/21 04:00 36.6 C 79 18 148/73 H 93 01/06/21 00:00 36.8 C 77 76 18 123/65 93 Laboratory Results 01/05/21 07:28 01/05/21 07:28 (1) Hypertension Hypertension type: unspecified Qualified Code(s): I10 - Essential (primary) hypertension
[2021-01-06] MEDS: WARFARIN SOD 4 MG TAB PO SCH (15:45)
[2021-01-06] MEDS: LORazepam 0.5 MG TAB PO PRN (16:48)
[2021-01-06] MEDS: METOCLOPRAMIDE HCL 10 MG TABLET PO SCH (18:03)
--- NOTE | 2021-01-06 18:22 | Hospitalist Progress Note ---
Date of Service January 06, 2021 Assessment & Plan (1) Pleural effusion: Plan: LEFT. s/p thoracentesis 12/[address] Mendez. 1700cc removed. Cultures and cytology negative. Lymphocytic, exudative as per lights criteria with respect to protein- pulmonology thinks this could be from chronic effusion or history of thoracentesis in the past s/p thoracentesis last month in [facility] as well -but this was transudative Likely 2nd to ESRD status. If he reaccumulates in future, chemical pleurodesis should be considered Cont incentive spirometry. (2) Gastroparesis: Plan: Gastroparesis/cyclic vomiting "flare." N/V 2nd to above - had resolved but having intermittent nausea - especially on HD days-having bad nausea on 01/04 but not vomiting -continue Compazine prn, - continue ondansetron PO 8mg TIDM + metoclopramide PO 10mg BIDM, if no improvement by tomorrow will consult gastroenterology KUB x-ray on 01/03-showed unchanged position of 6 mm proximal right ureteral calculus at the level of L3-not the cause of his nausea as his nausea directly correlates with dialysis days (3) Pericardial effusion: Plan: Echo performed this admission - effusion is smaller than last study. No evidence of tamponade. Suspect 2nd ESRD. Should have surveillance of this over next few months. (4) Ureteral calculus, right: Plan: at the [facility]. 6mm. no hydronephrosis. [facility] - they recommend outpatient f/u to discuss Rx options. KUB on 01/03 shows same position of 6 mm stone (5) Pulmonary embolism: Plan: dx 1 month ago, [facility]. CHERI. on coumadin. following [facility]. Previous hospitalist spoke with Dr Lennon 12/30 - she recommends a total weekly dose of about 27.5mg (~4mg each day). Coumadin was held for his thoracentesis. wa son heparin bridge, but INR finally therapeutic today at 2.0--> STOP heparin gtt on 01/04 Received 6 mg of Coumadin on 01/01 and 01/02 Continue Coumadin 4 mg daily Follow INR in the morning (6) ESRD (end stage renal disease): Plan: [facility] consulted and HD needs appreciated. Schedule - M/W/F. Appreciate management of dialysis (7) Dialysis patient: Plan: As above (8) Hypertension: Plan: With improved control after addition of doxazosin, however significantly elevated with nausea after HD today Remains on carvedilol 25 mg twice daily, losartan 100 mg daily, amlodipine 5 mg BID. Continue doxazosin 2mg at HS. Perhaps his BP meds should NOT be held prior to HD add on IV hydralazine prn SBP>160 (9) Nonischemic cardiomyopathy: Plan: Chronic systolic. EF 40-45%. Cont BB. Cont ARB. HD for volume control. See above re: pleural effusion. (10) CAD (coronary artery disease): Plan: Lipitor. Non-obstructive. 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 lantus & novolog adjusted by pharmacy. most recent a1c 6.9% (12) Junctional rhythm: Plan: Had a little over an hour of an accelerated junctional rhythm with a heart rate of 100 on 01/03 Asymptomatic Continue to follow on telemetry-none since that time Plan: PT consult completed - safe to return home w/ his parents when medically stable Disposition - plan to d/c home once nausea resolves, in the past this has happened spontaneously without any significant medical intervention Admission and Anticipated Discharge Date Admission Date: December 28, 2020 Subjective Initially was doing much better this morning. But nausea and vomiting returned this afternoon. Sleeping when I enter but when he wakes up he vomits clear liquid into his bowl by the side of his bed. No abdominal pain, fever or chills. BP and glucose well controlled today. He reports normally taking metoclopramide regularly at home. EKG shows no significant QTC prolongation. He reports scheduled ondansetron has not helped much despite having a much better morning. Ativan appears to help the most suggesting stress/anxiety is a major component triggering his gastroparesis. Prior notes reviewed and he has had botox injections for pyloric stenosis therefore will consult GI if no improvement going back on his regular metoclopramide tomorrow. Review of Systems Review of Systems: All systems reviewed & are unremarkable except as noted in HPI & below Physical Exam Constitutional: cooperative; + not well nourished, no acute distress and no altered mental status Eyes: + anicteric sclerae ENMT: Mouth: + dry oral mucous membranes Neck: trachea midline, no thyromegaly Respiratory: normal respiratory effort; no respiratory distress and not tachypneic Gastrointestinal (Abdomen): Inspection/Auscultation: abdomen normal to inspection and + hypoactive bowel sounds Percussion/Palpation: abdomen soft; abdomen nontender, no guarding and abdomen not rigid Musculoskeletal: Extremities: extremities normal to inspection; no cyanosis and no clubbing Skin: no rashes, warm and dry Neurologic: moves all extremities and awake; no focal motor deficits Psychiatric: Orientation: alert and oriented x 3 Affect: + flat affect Results & Data Results & Data ([facility]) Vital Signs (Past 12 Hours) Vital Signs Temp Pulse Pulse Pulse Resp BP BP 01/06/21 16:30 36.3 C L 60 18 155/67 H 01/06/21 14:20 76 01/06/21 12:00 36.5 C 68 18 157/66 H 01/06/21 08:00 36.5 C 83 18 164/62 H 01/06/21 07:00 79 Pulse Ox 01/06/21 16:30 98 01/06/21 14:20 01/06/21 12:00 92 01/06/21 08:00 93 01/06/21 07:00 PG Care Time/CCT Total # of Minutes Spent Total Time Spent with Patient: Total time spent is greater than 50% in coordination of care (as documented) at patient's floor/unit and/or counseling patient: Coding Level of Care Code 29353 Subseq Hosp Care Lvl 2 Diagnoses Pleural effusion J90 Gastroparesis K31.84 Pericardial effusion I31.3 Ureteral calculus, right N20.1 Pulmonary embolism I26.99 ESRD (end stage renal disease) N18.6 Dialysis patient Z99.2 Hypertension I10 Hypertension type: unspecified Nonischemic cardiomyopathy I42.8 CAD (coronary artery disease) I25.10 Associated angina: without angina Coronary Disease-Associated Artery/Lesion type: [place] artery [place] vs. 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 transplanted heart: [place] heart Qualified Code(s): I25.10 - Atherosclerotic heart disease of [place] coronary artery without angina pectoris (2) Hypertension Hypertension type: unspecified Qualified Code(s): I10 - Essential (primary) hypertension
[2021-01-06] MEDS: diphenhydrAMINE 50 MG/ML VIAL IV PRN (21:02)
[2021-01-06] MEDS: DOXAZosin MESYLATE TAB 2 MG TAB PO SCH (21:02)
[2021-01-06] MEDS: MELATONIN 3 MG TAB PO SCH (21:03)
[2021-01-07] MEDS: diphenhydrAMINE 50 MG/ML VIAL IV PRN ×2 (02:49→09:01)
[2021-01-07] MEDS: METOCLOPRAMIDE HCL INJ 5 MG/ML 2 ML VIAL IV PRN (06:12)
[2021-01-07] MEDS: LORazepam 0.5 MG TAB PO PRN (06:12)
[2021-01-07 06:25] LABS: Basophils # (auto) 0.01 K/uL (0-0.2); Basophils % (auto) 0.1 %; Eosinophils # (auto) 0.26 K/uL (0-0.5); Eosinophils % (auto) 2.3 %; Hematocrit (blood only) 34.3 % (42-52); Hemoglobin 11.3 g/dL (14.0-18.0); Immature Granulocytes # (auto) 0.03 K/uL (0.00-0.02); Immature Granulocytes % (auto) 0.3 %; Lymphocytes # (auto) 0.95 K/uL (1.2-3.4); Lymphocytes % (auto) 8.5 %; Mean Corpuscular Hemoglobin 31.5 pg (25-34); Mean Corpuscular Hgb Conc 32.9 g/dL (32-36); Mean Corpuscular Volume 95.5 fL (80-100); Mean Platelet Volume 8.9 fL (7.4-10.4); Monocytes # (auto) 0.82 K/uL (0.11-0.59); Monocytes % (auto) 7.3 %; Neutrophils # (auto) 9.09 K/uL (1.4-6.5); Neutrophils % (auto) 81.5 %; Platelet Count 295 K/uL (130-400); RDW Coefficient of Variation 13.9 % (11.5-14.5); RDW Standard Deviation 48.3 fL (36.4-46.3); Red Blood Count 3.59 M/uL (4.7-6.1); White Blood Count 11.16 K/uL (4.8-10.8)
[2021-01-07 06:36] LABS: INR 2.6 (0.9-1.1); Prothrombin Time 24.2 Seconds (9.0-12.0)
[2021-01-07 07:18] LABS: BUN Creatinine Ratio 7.6 (10-20); Calcium 8.3 mg/dl (8.5-10.1); Creatinine Clr Calc Pharmacy 12.9 ml/min; Est GFR (African American) 11.2 ml/min; Est GFR (Non-African American) 9.7 ml/min; Magnesium 2.5 mg/dl (1.8-2.4); Phosphorus 3.3 mg/dl (2.5-4.9); Potassium 4.4 mmol/L (3.5-5.1)
[2021-01-07] MEDS: ONDANSETRON 8MG OD TAB PO SCH ×3 (07:21→16:34)
[2021-01-07] MEDS: METOCLOPRAMIDE HCL 10 MG TABLET PO SCH ×2 (07:21→16:34)
[2021-01-07] MEDS: PANTOprazole 40 MG TAB PO SCH (07:21)
[2021-01-07] MEDS ORDERED: SODIUM CHLORIDE 0.9% 1000ML 1,000 ML IV PRN (08:02)
[2021-01-07] MEDS: carvediloL 25 MG TAB PO SCH ×3 (08:30→16:35)
[2021-01-07] MEDS: INSULIN ASPART 100 UNITS/ML 3 ML PEN SC SCH ×3 (08:30→16:36)
[2021-01-07] MEDS: SERTRALINE HCL 100 MG TABLET PO SCH ×2 (08:31→14:20)
[2021-01-07] MEDS: buPROPion SR 100 MG TABCR PO SCH ×2 (08:31→14:20)
[2021-01-07] MEDS: ATORVASTATIN 10 MG TAB PO SCH ×2 (08:31→08:57)
[2021-01-07] MEDS: amLODIPine BESYLATE 5 MG TAB PO SCH ×2 (08:31→08:57)
[2021-01-07] MEDS: CHOLECALCIFEROL 1,000 UNITS 25 MCG TAB PO SCH ×2 (08:31→14:20)
[2021-01-07] MEDS: NEPHROCAPS PO SCH ×2 (08:31→14:20)
[2021-01-07] MEDS: LOSARTAN POTASSIUM 50 MG TAB PO SCH ×2 (08:31→08:57)
[2021-01-07] MEDS ORDERED: INSULIN GLARGINE SOLOSTAR 100 UNITS/ML 3 ML PEN SC SCH (09:00)
[2021-01-07] MEDS ORDERED: HEPARIN SOD (PORCINE) 1000 UNIT/ML IV SCH (09:00)
[2021-01-07] MEDS: HEPARIN SOD (PORCINE) 1000 UNIT/ML IV SCH ×2 (12:10→12:11)
--- NOTE | 2021-01-07 14:50 | Dialysis Progress Note ---
Date of Service January 07, 2021 Assessment & Plan (1) ESRD (end stage renal disease): Plan: Patient with ESRD on dialysis Thursday. for routine HD today w/ as aggressive as tolerated fluid removal. Electrolytes are stable. Next dialysis will be Thursday and this can be as an outpatient or as clinical needs dictate. Given diminished BS, will check XR. (2) Hypertension: Plan: Blood pressure is acceptable if labile and situational. Continue current regimen including amlodipine, losartan and Coreg 25 mg twice daily. Admission and Anticipated Discharge Date Admission Date: December 28, 2020 Subjective seen on HD at approx 1010; miserable w/ gastroparesis sx and tired; has basin beside him; primary service to resume metoclopromide in AM and considering pyloric reinjection of botox. no sob; tolerating dialysis ok Review of Systems Review of Systems: All systems reviewed & are unremarkable except as noted in Subjective Physical Exam Constitutional: well developed and + thin; + uncomfortable Eyes: EOM intact bilaterally ENMT: Ears: no external ear abnormality Nose: no external nose abnormality Mouth: + dry oral mucous membranes Neck: no nuchal rigidity Respiratory: normal respiratory effort Auscultation: + diminished lung sounds (throughout but silvino L base) Cardiovascular: Rate/Rhythm: regular rate and regular rhythm Extremities: no edema Gastrointestinal (Abdomen): Inspection/Auscultation: normal bowel sounds Percussion/Palpation: abdomen soft; abdomen nontender Musculoskeletal: Extremities: strength 5/5 throughout Skin: no rashes, warm and dry Neurologic: spicer, fluent speech, no tremor Results & Data ([facility]) Vital Signs (Past 12 Hours) Vital Signs Temp Pulse Pulse Pulse Resp BP BP 01/07/21 14:24 36.5 C 91 H 18 178/76 H 01/07/21 13:00 84 157/85 H 01/07/21 12:40 83 171/73 H 01/07/21 12:20 83 170/74 H 01/07/21 12:00 84 177/76 H 01/07/21 11:40 84 156/72 H 01/07/21 11:20 84 159/76 H 01/07/21 11:00 84 151/77 H 01/07/21 10:40 84 151/79 H 01/07/21 10:20 84 156/72 H 01/07/21 10:00 81 164/83 H 01/07/21 09:47 85 175/84 H 01/07/21 09:39 36.6 C 85 01/07/21 08:00 36.5 C 72 18 179/72 H 01/07/21 07:11 82 01/07/21 04:15 36.4 C L 74 18 146/68 H Pulse Ox 01/07/21 14:24 94 01/07/21 13:00 01/07/21 12:40 01/07/21 12:20 01/07/21 12:00 01/07/21 11:40 01/07/21 11:20 01/07/21 11:00 01/07/21 10:40 01/07/21 10:20 01/07/21 10:00 01/07/21 09:47 01/07/21 09:39 01/07/21 08:00 01/07/21 07:11 01/07/21 04:15 93 Laboratory Results 01/07/21 06:13 01/07/21 06:13 Diagnostic Findings cxr 12/31 1. Trace left pleural effusion has decreased in size status post thoracentesis. 2. No postprocedural pneumothorax. (1) Hypertension Hypertension type: unspecified Qualified Code(s): I10 - Essential (primary) hypertension
[2021-01-07] MEDS: WARFARIN SOD 4 MG TAB PO SCH (16:02)
--- NOTE | 2021-01-07 16:34 | Discharge Summary ---
Date of Service January 07, 2021 Admission HPI Per Admitting Provider This is a 50-year-old male with past medical history of cyclical vomiting/gastroparesis, end-stage renal disease on hemodialysis that presents today with nausea vomiting. Patient is a very poor historian, but his father is present at bedside who is the patient's history documented in a binder. Patient has had longstanding issues with cyclic vomiting. At home, he typically uses Compazine and Zofran with variable relief. The father notes that the patient has been in the hospital multiple times, most recently [place] with concerns of pleural/pericardial effusions. Patient has been discharged from [facility] on 12/08 and has been home. Patient receives hemodialysis today, was having significant issues nausea vomiting during the treatment. After it was completed, he was brought via EMS to the emergency room for further further evaluation. Patient tells me he was able to tolerate some food and liquids about on the past 24 hours. In addition, he significantly hypertensive, last blood pressure was noted to be 193/90. On evaluation, the patient is sleepy and difficult to engage. The father is able to answer many questions. I did note that imaging showed a new left pleural effusion, he tells me this has been ongoing since his last hospitalization. Patient denies any shortness of breath, chest pain, or abdominal pain. Initially the plan was for the patient discharged home as it is a chronic condition but the patient and father do not feel that he would do well at home and is now being placed in observation for further treatment. Of note, patient's last bowel movement yesterday, described to slightly watery. Principal Diagnosis Cyclic vomiting / gastroparesis Discharge Exam Constitutional + not well nourished, no acute distress and no altered mental status Eyes + anicteric sclerae ENMT Mouth: + dry oral mucous membranes Neck trachea midline, no thyromegaly Respiratory normal respiratory effort; no respiratory distress and not tachypneic Cardiovascular Extremities: + AV fistula (left arm with bruit ) Gastrointestinal (Abdomen) Inspection/Auscultation: normal bowel sounds Percussion/Palpation: abdomen soft; abdomen nontender, no guarding and abdomen not rigid Musculoskeletal Extremities: extremities normal to inspection; no cyanosis and no clubbing Neurologic moves all extremities and awake; no focal motor deficits and not confused Psychiatric Orientation: alert and oriented x 3 Affect: + flat affect Lymphatic no lymphedema Discharge Data Allergies Allergy/AdvReac Type Severity Reaction Status Date / Time shellfish derived Allergy Severe anaphylaxis Verified 01/17/21 17:10 codeine Allergy Intermediate Hives Verified 01/17/21 17:10 promethazine Allergy Intermediate itchy/hives Verified 01/17/21 17:10 Consultations 12/26/20 15:19 ED Decision to Admit Stat 12/30/20 10:36 Consult Pulmonology Routine Ordered Studies 12/26/20 18:07 CT abd pelvis wo con Stat IMPRESSION: 1. 6 mm right ureteropelvic junction calculus. No hydronephrosis. 2. Partially visualized moderate left and small right pleural effusions with compressive atelectasis of the left lower lobe and segmental lingular atelectasis. Mild anasarca. Interstitial pulmonary edema. 3. Suboptimal evaluation of the abdomen and pelvis on this unenhanced exam. 4. No bowel obstruction. Chronic diverticulosis without evidence for acute diverticulitis. 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 This is an ongoing issue with cyclic vomiting and gastroparesis. His blood pressure and glucose levels were optimized and routine gastroparesis medications were used. Ondansetron was also given regularly but unclear if this had much of a beneficial effect. Will re-prescribe Seroquel as he has previously found this beneficial for sleep, anti-anxiety and may also be beneficial as an anti-emetic. He was also noted to have a left sided pleural effusion. This was treated with ultrasound-guided thoracentesis removing 1700ml of fluid. Recommended continued use of incentive spirometry to prevent this recurring. Suspected secondary to end stage renal disease with ongoing fluid optimization with dialysis. In the future if this recurs then chemical pleurodesis could be considered. His nausea and vomiting settled enough for discharge Total Time Total Time Spent Total Time Spent (In Minutes): 35 Discharge Plan Discharge Items Patient Disposition: Home - Self-Care Reason For Visit: CYCLIC VOMITING/GASTROPARESIS Discharge Diagnosis: Cyclic vomiting / gastroparesis Condition on Discharge: Good Activity: Resume your previous activity Non-emergency contact: Primary Care Provider Call non-emergency contact if: you have any medication questions and your symptoms worsen Follow-up/Referrals: Abbi Ames MD [Primary Care Provider] - 01/15/21 1:30 pm (Your appointment is with [facility]. If you have any questions or need to change this appointment, plese call [phone].) Diet: Carb Count or DM1, Dialysis Renal and Low Fiber Addtl Attending Provider Instructions: You were admitted to [facility] from December 26 to January 07 2021 due to nausea and vomiting. This is an ongoing issue with cyclic vomiting and gastroparesis. Your blood pressure and glucose was optimized and routine gastroparesis medications were used. Ondansetron was also given regularly but unclear if this had much of a beneficial effect. Will re-prescribe our Seroquel as this can work as an anti-emetic and may be beneficial for your anxiety which appears to significantly make your nausea and vomiting worse. Please continue to follow up with your gastroenterologists for ongoing management of this. You were also noted to have a left sided pleural effusion. This was treated with Diagnostic therapeutic ultrasound-guided catheter thoracentesis removing 1700ml of fluid. Continue incentive spirometry to prevent this recurring. This is suspected to be due to your end stage renal disease with ongoing fluid optimizat ion with dialysis. In the future if this recurs then chemical pleurodesis could be considered. Pending Studies at Discharge: No Stand-Alone Forms: My [facility] [employer], Smoking Cessation Medications and DC Order Prescriptions: New quetiapine [Seroquel] 25 mg tablet 25 mg PO HS Qty: 30 RF: 0 metoclopramide HCl 5 mg tablet 5 mg PO AC PRN (Reason: nausea and vomiting) Qty: 30 RF: 0 Continued Basaglar KwikPen U-100 Insulin 100 unit/mL (3 mL) insulin pen 12 unit SUBCUT QAM RF: 0 bupropion HCl 100 mg tablet sustained-release 12 hr 100 mg PO QAM RF: 0 acetaminophen 325 mg capsule 650 mg PO Q4H PRN (Reason: Pain (Scale Score 1-3)) RF: 0 amlodipine 5 mg tablet 5 mg PO DAILY Qty: 90 RF: 3 ondansetron HCl [Zofran] 4 mg tablet 4 mg PO Q4H PRN (Reason: NAUSEA/VOMITING) RF: 0 carvedilol 25 mg tablet 25 mg PO BIDM RF: 0 melatonin 3 mg tablet 3 mg PO HS RF: 0 sertraline 100 mg tablet 100 mg PO QAM Qty: 90 RF: 0 insulin aspart U-100 [Novolog Flexpen U-100 Insulin] 100 unit/mL (3 mL) insulin pen 5 unit SUBCUT TIDM PRN (Reason: sliding scale) RF: 0 pantoprazole 40 mg tablet,delayed release (DR/EC) 40 mg PO BID RF: 0 atorvastatin 10 mg Tablet 10 mg PO DAILY RF: 0 sodium chloride 0.9 % Solution 1,000 ml IV DIRECTED PRN (Reason: DIALYSIS) RF: 0 hydrocortisone 1 % Cream 1 applic TOPICAL Q6H PRN (Reason: Itching) RF: 0 bisacodyl 10 mg Suppository 10 mg [place] DAILY PRN (Reason: Constipation) RF: 0 B complex with C 20-folic acid 1 mg Capsule 1 cap PO DAILY RF: 0 polyethylene glycol 3350 [Miralax] 17 gram/dose Powder 17 g PO QDL PRN (Reason: Constipation) RF: 0 losartan 100 mg Tablet 100 mg PO DAILY RF: 0 darbepoetin jessee-albumin 60 mcg/0.3 mL Syringe 60 mcg WK RF: 0 No Action warfarin 5 mg tablet See Rx Instructions PO UD RF: 0 cholecalciferol (vitamin D3) [Vitamin D3] 50 mcg (2,000 unit) capsule 50 mcg PO DAILY Qty: 30 RF: 3 lorazepam 0.5 mg tablet 0.5 mg PO Q12 PRN (Reason: Anxiety) Qty: 60 RF: 0 Discharge Orders: Discharge Order (Routine); Ordered 01/07/21 Ordered By: Guevara Dockery/Other Patient Handouts: A1C, Managing Type 1 Diabetes, Cyclic Vomiting Syndrome Ch Admission Data Admit Date/Time: 12/28/20 20:27 Attending Provider: Guevara Loomis Admit Provider: Guevara Townsend Primary Care Provider: bAbi Ames V. Other Providers: Johnson Lazo ; Arcenio Ortiz Other Interventions: Discharge Summary Assessment (RN) Last Done: 01/07/21 16:16 Coding Level of Care Code D/C DAY MANAGEMENT >30 MINS Diagnoses Pleural effusion J90 Gastroparesis K31.84 Pericardial effusion I31.3 Ureteral calculus, right N20.1 Pulmonary embolism I26.99 ESRD (end stage renal disease) N18.6 Dialysis patient Z99.2 Hypertension I10 Hypertension type: unspecified Nonischemic cardiomyopathy I42.8 CAD (coronary artery disease) I25.10 Associated angina: without angina Coronary Disease-Associated Artery/Lesion type: [place] artery [place] vs. 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
--- NOTE | 2021-01-07 17:14 | XRay Report ---
XR chest 1V portable HISTORY: 50 years-old Male diminished BS L base; hx L pl effusion follow-up study in a patient with left pleural effusion COMPARISON: 12/31/2020 TECHNIQUE: AP view of the chest FINDINGS: Cardiac silhouette is normal in size. Of moderate left pleural effusion has increased in size from co mparison. Left midlung and left lung base airspace opacities. No pneumothorax. The right lung is tracey r. No overt pulmonary edema. Bones appear grossly intact. IMPRESSION: Moderate left pleural effusion with left lung base opacities has progressed from comparis on. ACT 112: Negative or not required by law. The above report was generated using voice recognition software. It may contain grammatical, syntax o r spelling errors. Electronically signed by: Justus Martinez M.D. 01/07/2021 5:13 PM
== END 2021-01-07 17:04 | disposition home or self-care (01) | DRG 73 ==
LOC: ED 09:25 → 2N 09:25 → SUATTDRO 17:13 → 2N 20:25 → SUATTDRO 12-28 20:27
DX: I25.10 Atherosclerotic heart disease of native coronary artery without angina pectoris; J90 Pleural effusion, not elsewhere classified; Z79.4 Long term (current) use of insulin; Z91.013 Allergy to seafood; N18.6 End stage renal disease; E10.43 Type 1 diabetes mellitus with diabetic autonomic (poly)neuropathy; Z99.2 Dependence on renal dialysis; K31.84 Gastroparesis; I42.8 Other cardiomyopathies; Z86.711 Personal history of pulmonary embolism; R11.15 Cyclical vomiting syndrome unrelated to migraine; E10.22 Type 1 diabetes mellitus with diabetic chronic kidney disease; Z79.01 Long term (current) use of anticoagulants; I12.0 Hypertensive chronic kidney disease with stage 5 chronic kidney disease or end stage renal disease; Z88.5 Allergy status to narcotic agent

== ENCOUNTER 2021-01-21 18:09 | Inpatient (IN) ==
[2021-01-21] MEDS ORDERED: ONDANSETRON INJ 2 MG/ML 2 ML VIAL IV STA (18:39)
[2021-01-21] MEDS ORDERED: ASPIRIN CHEW 324 MG PO STA (19:11)
[2021-01-21] MEDS ORDERED: NITROGLYCERIN SL 0.4 MG/TAB TAB SL STA (19:11)
[2021-01-21 19:24] LABS: Basophils # (auto) 0.04 K/uL (0-0.2); Basophils % (auto) 0.5 %; Eosinophils # (auto) 0.08 K/uL (0-0.5); Hematocrit (blood only) 44.4 % (42-52); Hemoglobin 14.7 g/dL (14.0-18.0); Immature Granulocytes # (auto) 0.02 K/uL (0.00-0.02); Immature Granulocytes % (auto) 0.2 %; Lymphocytes # (auto) 1.44 K/uL (1.2-3.4); Mean Corpuscular Hgb Conc 33.1 g/dL (32-36); Mean Corpuscular Volume 96.5 fL (80-100); Mean Platelet Volume 8.9 fL (7.4-10.4); Monocytes # (auto) 0.72 K/uL (0.11-0.59); Neutrophils # (auto) 5.71 K/uL (1.4-6.5); Neutrophils % (auto) 71.3 %; Platelet Count 455 K/uL (130-400); RDW Coefficient of Variation 15.6 % (11.5-14.5); RDW Standard Deviation 55.1 fL (36.4-46.3); White Blood Count 8.01 K/uL (4.8-10.8)
[2021-01-21 20:11] LABS: Alanine Aminotransferase 27 U/L (12-78); Albumin Globulin Ratio 0.7 (0.9-2); Albumin Level 3.5 gm/dl (3.4-5.0); Alkaline Phosphatase 115 U/L (45-117); BUN Creatinine Ratio 5.7 (10-20); Bilirubin,Total 0.7 mg/dl (0.2-1); Blood Urea Nitrogen 20 mg/dl (7-18); Calcium 8.9 mg/dl (8.5-10.1); Carbon Dioxide 27 mmol/L (21-32); Chloride 95 mmol/L (98-107); Creatinine Clr Calc Pharmacy 21.5 ml/min; Est GFR (African American) 21.5 ml/min; Est GFR (Non-African American) 18.6 ml/min; Globulin 4.7 gm/dl (2.5-4.0); Glucose 39 mg/dl (70-99); Lipase 48 U/L (73-393); NT Pro B Type Natriuretic Pept > 35000 pg/ml (0-900); Sodium 130 mmol/L (136-145); Total Protein 8.2 gm/dl (6.4-8.2); Troponin I < 0.015 ng/ml (0-0.045)
[2021-01-21 20:19] LABS: INR 3.6 (0.9-1.1); Partial Thromboplastin Ratio 1.7; Partial Thromboplastin Time 44.2 Seconds (21.0-31.0); Prothrombin Time 33.2 Seconds (9.0-12.0)
--- NOTE | 2021-01-21 20:40 | XRay Report ---
SINGLE VIEW CHEST CLINICAL HISTORY: Dyspnea. FINDINGS: 2 AP, portable, upright chest radiographs are compared to study dated 01/07/2021. The heart i s enlarged. There is mild pulmonary vascular congestion. A layering left pleural effusion with associ ated left basilar consolidation is similar to previous. The right lung appears clear. No pneumothorax is seen. The skeletal structures are osteopenic. The bony thorax is grossly intact. IMPRESSION: 1. Cardiomegaly with mild pulmonary vascular congestion. 2. A layering left pleural effusion with left basilar consolidation [facility] ACT 112: Negative or not required by law. Electronically signed by: Dev Burden M.D. 01/21/2021 8:38 PM
[2021-01-21] MEDS ORDERED: GLUCAGON FOR INJ 1 MG VIAL SQ PRN (21:01)
[2021-01-21] MEDS ORDERED: GLUCOSE 10 TABS/TUBE PO PRN (21:01)
[2021-01-21] MEDS ORDERED: CARBOHYDRATES FOR HYPOGLYCEMIA PO PRN (21:01)
[2021-01-21] MEDS ORDERED: DEXTROSE 50% 50 ML SYRINGE IV PRN (21:01)
[2021-01-21] MEDS ORDERED: GLUCOSE 40% GEL 15 GM TUBE PO PRN (21:01)
[2021-01-21 21:36] LABS: iSTAT Hemoglobin 11.2 g/dl (14.0-18.0); iSTAT Ionized Calcium 1.07 mmol/l (1.12-1.32); iSTAT Potassium 3.5 mmol/L (3.3-5.0)
[2021-01-21] MEDS ORDERED: ONDANSETRON INJ 2 MG/ML 2 ML VIAL IV SCH (22:00)
--- NOTE | 2021-01-21 22:09 | History & Physical Report ---
Date of Service January 21, 2021 Assessment & Plan (1) Cyclic vomiting syndrome: Plan: 1. Cyclic Vomiting Syndrome - reglan, seroquel. zofran/compazine discontinued given prolonged QT. - GI consult for re-evaluation of esophagitis, worsening gastroparesis 2 Hypertension: Continue other medications as ordered, including carvedilol 25 mg twice daily losartan 100 mg daily amlodipine 5 mg daily 3 Dialysis patient: Hemodialysis Thursday nephro consult (4) Nonischemic cardiomyopathy: Continue cardiac regimen including carvedilol as noted last echo EF of 40 to 45%, increased RV presure, mod global hypokinesis of L ventricle (5) CAD (coronary artery disease): Cardiac medications as noted above along with atorvastatin 10 mg daily (6) Pleural effusion: recurrent Left-sided pleural effusion, pulm consult for evaluation of chemical pleurodesis (7) Pulmonary embolism hx continue anticoagulation with warfarin 8 anx/dep cont sertraline 9, IDDM - glargine 12 u AM - SSI - hypoglycemia due to vomiting/decreased PO intake while taking insulin dvt ppx: on warfarin fen/gi: NPO dispo: med/surg code status: full code (2) Pleural effusion: (3) Hypoglycemia: (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: (5) 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, with long-term current use of insulin: (6) 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 Patient is a very poor historian. Patient has had longstanding issues with cyclic vomiting. At home, he typically uses Compazine and Zofran with variable relief. Patient has been in the hospital multiple times, most recently discharged on 01/07 after admission for N/V and drainage of L pleural effusion. Patient received hemodialysis today without issue, but noted worsening nausea afterward. On evaluation, the patient is sleepy and difficult to engage.He notes constant SOB at rest, worse with exertion. He denies CP at rest or with exertion. He denies any abdominal pain. Allergies Allergy/AdvReac Type Severity Reaction Status Date / Time shellfish derived Allergy Severe anaphylaxis Verified 01/21/21 21:15 codeine Allergy Intermediate Hives Verified 01/21/21 21:15 promethazine Allergy Intermediate itchy/hives Verified 01/21/21 21:15 Home Medications Medication Instructions Recorded Confirmed Type bupropion HCl 100 mg tablet,12 hr 100 mg PO QAM ea 04/14/19 01/21/21 History sustained-release pantoprazole 40 mg tablet,delayed 40 mg PO BID 07/09/20 01/21/21 History release melatonin 3 mg tablet 3 mg PO HS tab 09/05/20 01/21/21 History acetaminophen 325 mg capsule 650 mg PO Q4H PRN cap 09/28/20 01/21/21 History carvedilol 25 mg tablet 25 mg PO BIDM tab 10/01/20 01/21/21 History ondansetron HCl 4 mg tablet 4 mg PO Q4H PRN 10/01/20 01/21/21 History (Zofran) atorvastatin 10 mg tablet 10 mg PO DAILY 11/29/20 01/21/21 History bisacodyl 10 mg rectal suppository 10 mg IA DAILY PRN 11/29/20 01/21/21 History darbepoetin jessee-albumin 60 60 mcg WK 11/29/20 01/21/21 History mcg/0.3 mL in albumin injection syringe hydrocortisone 1 % topical cream 1 applic TOPICAL Q6H PRN 11/29/20 01/21/21 History losartan 100 mg tablet 100 mg PO DAILY 11/29/20 01/21/21 History polyethylene glycol 3350 17 17 g PO QDL PRN 11/29/20 01/21/21 History gram/dose oral powder (Miralax) vitamin B complex and vitamin C 1 cap PO DAILY 11/29/20 01/21/21 History no.20-folic acid 1 mg capsule amlodipine 5 mg tablet 5 mg PO DAILY #90 tab 12/07/20 01/21/21 Rx sertraline 100 mg tablet 100 mg PO QAM #90 tab 12/11/20 01/21/21 Rx insulin aspart U-100 100 unit/mL 5 unit SUBCUT TIDM PRN 12/21/20 01/21/21 History (3 mL) subcutaneous pen (Novolog Flexpen U-100 Insulin aspart) insulin glargine 100 unit/mL (3 12 unit SUBCUT QAM ml 12/21/20 01/21/21 History mL) subcutaneous pen (Basaglar KwikPen U-100 Insulin) metoclopramide HCl 5 mg tablet 5 mg PO AC PRN #30 tab 01/07/21 01/21/21 Rx quetiapine 25 mg tablet (Seroquel) 25 mg PO HS #30 tab 01/07/21 01/21/21 Rx cholecalciferol (vitamin D3) 50 50 mcg PO DAILY #30 cap 01/17/21 01/21/21 Rx mcg (2,000 unit) capsule (Vitamin D3) lorazepam 0.5 mg tablet 0.5 mg PO Q12 PRN #60 tab 01/18/21 01/21/21 Rx warfarin 5 mg tablet 2.5 mg PO 4XWK 01/21/21 01/21/21 History warfarin 5 mg tablet 5 mg PO 3XWK 01/21/21 01/21/21 History Past Med/Surg History Medical History (Updated 01/22/21 @ 17:22 by Lor Guadalupe MD, PhD) Anemia Anemia of chronic disease Anxiety AV fistula left arm CAD (coronary artery disease) mild, non-obstructive CAD per 10/2018 cardiac cath> [facility] Depression Diabetic retinopathy Dialysis patient DKA (diabetic ketoacidoses) Esophagitis ESRD (end stage renal disease) M,W,F (Follows with Dr. Lor Guadalupe; [facility]) Gastroparesis GERD (gastroesophageal reflux disease) Hematemesis Hypertension Intractable vomiting with nausea Kidney stones Lumbar compression fracture Lumbar radiculopathy Peripheral neuropathy Pleural effusion Retinopathy due to secondary diabetes Severe protein-calorie malnutrition Vomiting Surgical History H/O shoulder surgery RIGHT History of appendectomy History of cardiac cath 10/2018= no stents, no obstructive disease (at [facility]) History of cataract surgery History of esophagogastroduodenoscopy (EGD) (~03/08/20) History of hip surgery left HIP ARTHROSCOPY History of lithotripsy History of open reduction and internal fixation (ORIF) procedure right hip Nausea and vomiting after administration of anesthetic agent Permanent central venous catheter in place Permacath has been removed S/P arteriovenous (AV) fistula creation Family History Grandfather Myocardial infarction Grandfather (Maternal) Family history of diabetes mellitus Uncle Myocardial infarction Other No family history of adverse response to anesthesia Denies family history of Colon cancer Ovarian cancer Prostate cancer Breast cancer Social History Smoking Status: Never smoker Second Hand Exposure: No; Do You Dip or Chew Tobacco: No; Hx Alcohol Use: No Hx Substance Use: No Preferred Language: Arabic Communication Ability: Effective Visual Impairment: No Limitations Hearing Ability: Normal Promotions Director Required: No Beliefs That Will Affect Care: None marital status: Current Living Situation: Parent Current Living Situation Comment: lives with parents. current occupational status: disabled How many Children do You have: 2 Other Information That Helps Us Care for You: No Feels Safe at Home: Yes Safety Concerns: Feels Safe At This Time Childhood Exposure to Second-Hand Smoke: Yes Dental Care, Regularly: No Physical Activity Frequency: 1-2 Times per Week Seatbelt Use: always Sunscreen Use: No Assistive Devices: Cane Review of Systems Review of Systems: All systems reviewed & are unremarkable except as noted in Subjective Physical Exam Physical Exam: Constitutional: in no apparent distress,listless appearing Eyes: EOMI, pupils equal and reactive bilaterally, no scleral icterus Cardiac: RRR, no murmurs, gallops or rubs. Normal S1, S2 Pulm: CTA BL, no wheezes, rhonchi, crackles or rubs, moving air well throughout both lungs Abd: soft, nontender, nondistended, normal bowel sounds, no rebound or guarding Extremities: 2+ peripheral pulses, no edema Neuro: no focal deficits, moving all 4 limbs, A&Ox3 Results & Data Results & Data ([facility]) Vital Signs (Past 12 Hours) Vital Signs Temp Pulse Pulse Resp BP BP Pulse Ox 01/21/21 21:30 88 18 213/102 H 01/21/21 21:17 91 H 7 L 219/108 H 01/21/21 20:05 85 11 L 192/116 H 93 01/21/21 20:00 93 H 13 01/21/21 19:50 94 H 11 L 01/21/21 19:40 95 H 10 L 01/21/21 19:30 94 H 10 L 01/21/21 19:20 94 H 20 01/21/21 19:19 97 H 24 01/21/21 18:28 36.3 C L 99 H 16 213/94 H 98 Laboratory Results Laboratory Results WBC 8.01 K/uL (4.8-10.8) 01/21/21 19:11 RBC 4.60 M/uL (4.7-6.1) L 01/21/21 19:11 Hgb 14.7 g/dL (14.0-18.0) 01/21/21 19:11 POC Hgb 11.2 g/dl (14.0-18.0) L 01/21/21 21:21 Hct 44.4 % (42-52) 01/21/21 19:11 POC Hct 33 % (42-52) L 01/21/21 21:21 MCV 96.5 fL (80-100) 01/21/21 19:11 MCH 32.0 pg (25-34) 01/21/21 19:11 MCHC 33.1 g/dL (32-36) 01/21/21 19:11 RDW Std Deviation 55.1 fL (36.4-46.3) H 01/21/21 19:11 RDW Coeff of Kami 15.6 % (11.5-14.5) H 01/21/21 19:11 Plt Count 455 K/uL (130-400) H 01/21/21 19:11 MPV 8.9 fL (7.4-10.4) 01/21/21 19:11 Immature Gran % (Auto) 0.2 % 01/21/21 19:11 Neut % (Auto) 71.3 % 01/21/21 19:11 Lymph % (Auto) 18.0 % 01/21/21 19:11 Lander % (Auto) 9.0 % 01/21/21 19:11 Eos % (Auto) 1.0 % 01/21/21 19:11 Baso % (Auto) 0.5 % 01/21/21 19:11 Neut # (Auto) 5.71 K/uL (1.4-6.5) 01/21/21 19:11 Lymph # (Auto) 1.44 K/uL (1.2-3.4) 01/21/21 19:11 Lander # (Auto) 0.72 K/uL (0.11-0.59) H 01/21/21 19:11 Eos # (Auto) 0.08 K/uL (0-0.5) 01/21/21 19:11 Baso # (Auto) 0.04 K/uL (0-0.2) 01/21/21 19:11 Immature Gran # (Auto) 0.02 K/uL (0.00-0.02) 01/21/21 19:11 PT 33.2 Seconds (9.0-12.0) H 01/21/21 19:52 INR 3.6 (0.9-1.1) H 01/21/21 19:52 APTT 44.2 Seconds (21.0-31.0) H 01/21/21 19:52 PTT Ratio 1.7 01/21/21 19:52 POC Sodium 133 mmol/L (135-144) L 01/21/21 21:21 Sodium 130 mmol/L (136-145) L 01/21/21 19:11 POC Potassium 3.5 mmol/L (3.3-5.0) 01/21/21 21:21 Potassium mmol/L (3.5-5.1) 01/21/21 19:11 POC Chloride 90 mmol/L (101-112) L 01/21/21 21:21 Chloride 95 mmol/L (98-107) L 01/21/21 19:11 Carbon Dioxide 27 mmol/L (21-32) 01/21/21 19:11 POC Total CO2 27 mmol/L (24-31) 01/21/21 21:21 Anion Gap 8.0 (3-11) 01/21/21 19:11 POC Anion Gap 20.0 mmol/L (16-25) 01/21/21 21:21 POC BUN 22 mg/dl (7-18) H 01/21/21 21:21 BUN 20 mg/dl (7-18) H 01/21/21 19:11 Creatinine 3.60 mg/dl (0.6-1.4) H 01/21/21 19:11 POC Creatinine 4.0 mg/dl (0.6-1.3) H 01/21/21 21:21 Est Cr Clr Drug Dosing 21.5 ml/min 01/21/21 19:11 Est GFR ( Amer) 21.5 ml/min 01/21/21 19:11 Est GFR (Non-Af Amer) 18.6 ml/min 01/21/21 19:11 BUN/Creatinine Ratio 5.7 (10-20) L 01/21/21 19:11 Glucose 39 mg/dl (70-99) L* 01/21/21 19:11 POC Glucose 191 mg/dl (70-99) H 01/22/21 02:36 POC Glucose (other) 151 mg/dl (70-99) H 01/21/21 21:21 Calcium 8.9 mg/dl (8.5-10.1) 01/21/21 19:11 POC Ioniz Calcium Peterson 1.07 mmol/l (1.12-1.32) L 01/21/21 21:21 Total Bilirubin 0.7 mg/dl (0.2-1) 01/21/21 19:11 AST U/L (15-37) 01/21/21 19:11 ALT 27 U/L (12-78) 01/21/21 19:11 Alkaline Phosphatase 115 U/L (45-117) 01/21/21 19:11 Troponin I < 0.015 ng/ml (0-0.045) 01/21/21 19:11 Troponin I Cancelled 01/21/21 19:11 NT-Pro-B Natriuret Pep > 71935 pg/ml (0-900) H 01/21/21 19:11 NT-Pro-B Natriuret Pep Cancelled 01/21/21 19:11 Total Protein 8.2 gm/dl (6.4-8.2) 01/21/21 19:11 Albumin 3.5 gm/dl (3.4-5.0) 01/21/21 19:11 Globulin 4.7 gm/dl (2.5-4.0) H 01/21/21 19:11 Albumin/Globulin Ratio 0.7 (0.9-2) L 01/21/21 19:11 Lipase 48 U/L (73-393) L 01/21/21 19:11 COVID-19 Eval Order Covid19 at [facility] 01/21/21 21:15 SARS-CoV-2 (PCR) NEGATIVE (Negative) 01/21/21 21:15 Impressions Chest X-Ray 01/21/21 19:11 SINGLE VIEW CHEST CLINICAL HISTORY: Dyspnea. FINDINGS: 2 AP, portable, upright chest radiographs are compared to study dated 01/07/2021. The heart is enlarged. There is mild pulmonary vascular congestion. A layering left pleural effusion with associated left basilar consolidation is similar to previous. The right lung appears clear. No pneumothorax is seen. The skeletal structures are osteopenic. The bony thorax is grossly intact. IMPRESSION: 1. Cardiomegaly with mild pulmonary vascular congestion. 2. A layering left pleural effusion with left basilar consolidation is similar to the 01/07/2021 examination. ACT 112: Negative or not required by law. Electronically signed by: Dev Burden M.D. 01/21/2021 8:38 PM Code Status & VTE Plan VTE Prophylaxis Plan VTE Prophylaxis will be ordered: Yes Supervising Physician Co-Signing Physician Notes Attending addendum: I have physically seen this patient, have supervised the medical residents activities, and agree with the H&P unless as otherwise noted. Assessment and Plan: Cyclic vomiting syndrome/esophagitis/gastroparesis- Consult gastroenterology ESRD on HD- Thursday, Thursday and Thursday Consult nephrology CAD/hypertension/nonischemic cardiomyopathy- Continue carvedilol Pulmonary embolism- Continue warfarin, following serial PT/INR Diabetes mellitus- Insulin glargine 12 units subcu every morning Placed on Accu-Cheks before meals and at bedtime with NovoLog coverage per scale Hypoglycemic in the ED due to decreased oral intake while taking insulin Remaining orders and notations as noted Resident Activity Tracking Resident Involvement: Resident Care Provided Care Provided: Adult Hospital Medicine (1) CAD (coronary artery disease) Associated angina: without angina Coronary Disease-Associated Artery/Lesion type: [place] artery [place] vs. transplanted heart: [place] heart Qualified Code(s): I25.10 - Atherosclerotic heart disease of [place] coronary artery without angina pectoris (2) Hypertension Hypertension type: unspecified Qualified Code(s): I10 - Essential (primary) hypertension
[2021-01-21] MEDS ORDERED: METOPROLOL TARTRATE 1 MG/ML VIAL IV STA (22:11)
[2021-01-21] MEDS ORDERED: POLYETHYLENE (MIRALAX) 17 GM PACK PO PRN (23:36)
[2021-01-21] MEDS ORDERED: bisacodyL 10 MG SUPP PR PRN (23:36)
[2021-01-21] MEDS ORDERED: Nursing to Pharmacy Communication SCH (23:45)
[2021-01-22] MEDS: METOCLOPRAMIDE HCL INJ 5 MG/ML 2 ML VIAL IV PRN (00:28)
[2021-01-22] MEDS ORDERED: HYDROCORTISONE 1% CRM 30 GM TUBE EXT PRN (00:29)
--- NOTE | 2021-01-22 00:36 | Emergency Department Note ---
History of Present Illness General Chief complaint: Vomiting Stated complaint: NAUSEA, VOMITING, SOB Time Seen by Provider: 01/21/21 19:05 History of Present Illness Provider complaint: Shortness of breath Onset (ago): day(s) 3 Severity: moderate Maximum Pain Intensity: 6 Associated symptoms: + chest pain, + nausea/vomiting and + shortness of breath; no cough, no fever/chills or no headaches 50-year-old male end-stage renal disease on hemodialysis Thursday presents emergency department for shortness of breath. Patient reports his symptoms began 3 days ago. He denies any cough. He states he has had fluid on his lung and has had needed multiple thoracenteses done. He states he had a full session of dialysis today. Patient states he was seen at [facility] and was discharged recently. Home Medications Medication Instructions Recorded Confirmed Type bupropion HCl 100 mg tablet,12 hr 100 mg PO QAM ea 04/14/19 01/21/21 History sustained-release pantoprazole 40 mg tablet,delayed 40 mg PO BID 07/09/20 01/21/21 History release melatonin 3 mg tablet 3 mg PO HS tab 09/05/20 01/21/21 History acetaminophen 325 mg capsule 650 mg PO Q4H PRN cap 09/28/20 01/21/21 History carvedilol 25 mg tablet 25 mg PO BIDM tab 10/01/20 01/21/21 History ondansetron HCl 4 mg tablet 4 mg PO Q4H PRN 10/01/20 01/21/21 History (Zofran) atorvastatin 10 mg tablet 10 mg PO DAILY 11/29/20 01/21/21 History bisacodyl 10 mg rectal suppository 10 mg MD DAILY PRN 11/29/20 01/21/21 History darbepoetin jessee-albumin 60 60 mcg WK 11/29/20 01/21/21 History mcg/0.3 mL in albumin injection syringe hydrocortisone 1 % topical cream 1 applic TOPICAL Q6H PRN 11/29/20 01/21/21 History losartan 100 mg tablet 100 mg PO DAILY 11/29/20 01/21/21 History polyethylene glycol 3350 17 17 g PO QDL PRN 11/29/20 01/21/21 History gram/dose oral powder (Miralax) vitamin B complex and vitamin C 1 cap PO DAILY 11/29/20 01/21/21 History no.20-folic acid 1 mg capsule amlodipine 5 mg tablet 5 mg PO DAILY #90 tab 12/07/20 01/21/21 Rx sertraline 100 mg tablet 100 mg PO QAM #90 tab 12/11/20 01/21/21 Rx insulin aspart U-100 100 unit/mL 5 unit SUBCUT TIDM PRN 12/21/20 01/21/21 History (3 mL) subcutaneous pen (Novolog Flexpen U-100 Insulin aspart) insulin glargine 100 unit/mL (3 12 unit SUBCUT QAM ml 12/21/20 01/21/21 History mL) subcutaneous pen (Basaglar KwikPen U-100 Insulin) metoclopramide HCl 5 mg tablet 5 mg PO AC PRN #30 tab 01/07/21 01/21/21 Rx quetiapine 25 mg tablet (Seroquel) 25 mg PO HS #30 tab 01/07/21 01/21/21 Rx cholecalciferol (vitamin D3) 50 50 mcg PO DAILY #30 cap 01/17/21 01/21/21 Rx mcg (2,000 unit) capsule (Vitamin D3) lorazepam 0.5 mg tablet 0.5 mg PO Q12 PRN #60 tab 01/18/21 01/21/21 Rx warfarin 5 mg tablet 2.5 mg PO [id number] 01/21/21 01/21/21 History warfarin 5 mg tablet 5 mg PO 3XWK 01/21/21 01/21/21 History Allergies Allergy/AdvReac Type Severity Reaction Status Date / Time shellfish derived Allergy Severe anaphylaxis Verified 01/21/21 21:15 codeine Allergy Intermediate Hives Verified 01/21/21 21:15 promethazine Allergy Intermediate itchy/hives Verified 01/21/21 21:15 Past Med/Surg History Medical History Anemia Anemia of chronic disease Anxiety AV fistula left arm CAD (coronary artery disease) mild, non-obstructive CAD per 10/2018 cardiac cath> [facility] Depression Diabetic retinopathy Dialysis patient DKA (diabetic ketoacidoses) Esophagitis ESRD (end stage renal disease) M,W,F (Follows with Dr. Taylor Higgins; [facility]) Gastroparesis GERD (gastroesophageal reflux disease) Hematemesis Hypertension Intractable vomiting with nausea Kidney stones Lumbar compression fracture Lumbar radiculopathy Peripheral neuropathy Retinopathy due to secondary diabetes Severe protein-calorie malnutrition Vomiting Surgical History H/O shoulder surgery RIGHT History of appendectomy History of cardiac cath 10/2018= no stents, no obstructive disease (at [facility]) History of cataract surgery History of esophagogastroduodenoscopy (EGD) (~03/08/20) History of hip surgery left HIP ARTHROSCOPY History of lithotripsy History of open reduction and internal fixation (ORIF) procedure right hip Nausea and vomiting after administration of anesthetic agent Permanent central venous catheter in place Permacath has been removed S/P arteriovenous (AV) fistula creation Family History Grandfather Myocardial infarction Grandfather (Maternal) Family history of diabetes mellitus Uncle Myocardial infarction Other No family history of adverse response to anesthesia Denies family history of Colon cancer Ovarian cancer Prostate cancer Breast cancer Social History Smoking Status: Never smoker Second Hand Exposure: No; Do You Dip or Chew Tobacco: No; Hx Alcohol Use: No Hx Substance Use: No Preferred Language: Greek Communication Ability: Effective Visual Impairment: No Limitations Hearing Ability: Normal Wool Washer Feeder Required: No Beliefs That Will Affect Care: None marital status: Current Living Situation: Parent Current Living Situation Comment: lives with parents. current occupational status: disabled How many Children do You have: 2 Other Information That Helps Us Care for You: No Feels Safe at Home: Yes Safety Concerns: Feels Safe At This Time Childhood Exposure to Second-Hand Smoke: Yes Dental Care, Regularly: No Physical Activity Frequency: 1-2 Times per Week Seatbelt Use: always Sunscreen Use: No Assistive Devices: Cane Review of Systems A total of 10 systems reviewed and were otherwise negative Physical Exam Vital Signs Vital Signs - 24 hr 01/21/21 18:28 01/21/21 19:19 01/21/21 19:20 Temperature 36.3 C L Temperature Source Temporal Artery Scan Pulse Rate 99 H 97 H 94 H Pulse Rate [Finger] Pulse Rhythm Regular Pulse Strength Normal Respiratory Rate 16 24 20 Respiratory Effort / Characteristics Non-Labored Spontaneous Respiratory Depth Normal Respiratory Pattern Regular Blood Pressure 213/94 H Blood Pressure [Right Arm] Blood Pressure Mean 133 Blood Pressure Mean [Right Arm] Blood Pressure Position Sitting Blood Pressure Position [Right Arm] Pulse Oximetry 98 Oxygen Delivery Method Room Air Room Air Room Air Sepsis Recent Fever Within 48 Hours No Sepsis New/Unexplained Change in Mental Status No Sepsis Action Taken by Nursing No Action Required 01/21/21 19:30 01/21/21 19:40 01/21/21 19:50 Temperature Temperature Source Pulse Rate 94 H 95 H 94 H Pulse Rate [Finger] Pulse Rhythm Pulse Strength Respiratory Rate 10 L 10 L 11 L Respiratory Effort / Characteristics Respiratory Depth Respiratory Pattern Blood Pressure Blood Pressure [Right Arm] Blood Pressure Mean Blood Pressure Mean [Right Arm] Blood Pressure Position Blood Pressure Position [Right Arm] Pulse Oximetry Oxygen Delivery Method Room Air Room Air Room Air Sepsis Recent Fever Within 48 Hours Sepsis New/Unexplained Change in Mental Status Sepsis Action Taken by Nursing 01/21/21 20:00 01/21/21 20:05 01/21/21 21:17 Temperature Temperature Source Pulse Rate 93 H 91 H Pulse Rate [Finger] 85 Pulse Rhythm Pulse Strength Respiratory Rate 13 11 L 7 L Respiratory Effort / Characteristics Non-Labored Spontaneous Respiratory Depth Normal Respiratory Pattern Regular Blood Pressure 219/108 H Blood Pressure [Right Arm] 192/116 H Blood Pressure Mean 145 Blood Pressure Mean [Right Arm] 141 Blood Pressure Position Blood Pressure Position [Right Arm] Sitting Pulse Oximetry 93 Oxygen Delivery Method Room Air Room Air Room Air Sepsis Recent Fever Within 48 Hours Sepsis New/Unexplained Change in Mental Status Sepsis Action Taken by Nursing 01/21/21 21:30 Temperature Temperature Source Pulse Rate 88 Pulse Rate [Finger] Pulse Rhythm Pulse Strength Respiratory Rate 18 Respiratory Effort / Characteristics Respiratory Depth Respiratory Pattern Blood Pressure 213/102 H Blood Pressure [Right Arm] Blood Pressure Mean 139 Blood Pressure Mean [Right Arm] Blood Pressure Position Blood Pressure Position [Right Arm] Pulse Oximetry Oxygen Delivery Method Room Air Sepsis Recent Fever Within 48 Hours Sepsis New/Unexplained Change in Mental Status Sepsis Action Taken by Nursing Physical Exam GENERAL: He is oriented to person, place, and time. He appears well-developed and well-nourished. He does not appear distressed. HENT: Exam performed. - Head: Normocephalic and atraumatic. - Right Ear: External ear normal. No mastoid tenderness. - Left Ear: External ear normal. No mastoid tenderness. - Mouth/Throat: The oropharynx is clear and moist. No trismus in the jaw. No dental abscesses or uvula swelling. No oropharyngeal exudate or tonsillar abscesses. EYES: Conjunctivae and EOM are normal. Pupils are equal, round, and reactive to light. Right eye exhibits no discharge. Left eye exhibits no discharge. No scleral icterus. NECK: Normal range of motion. Neck supple. No JVD present. No spinous process tenderness present. No carotid bruit present. No rigidity. No tracheal deviation and normal range of motion present. No Brudzinski's sign and no Kernig's sign noted. CV: Normal rate, regular rhythm, normal heart sounds and intact distal pulses. There is no peripheral edema. Palpable radial pulses bue. PULM/CHEST: Diminished breath sounds bilaterally. Left upper extremity AV fistula with palpable thrill. ABD: The abdomen is soft. Bowel sounds are normal. He has no distension. No mass is present. There is no tenderness. There is no rebound, no guarding, no Prescott's sign and no tenderness at McBurney's point. Rovsig negative. MUSC/SKEL: Left upper extremity AV fistula with palpable thrill. LYMPH: No cervical adenopathy. NEURO: He is alert and oriented to person, place, and time. He has normal strength. No cranial nerve deficit or sensory deficit. Coordination and gait normal. GCS eye subscore is 4. GCS verbal subscore is 5. GCS motor subscore is 6. Cerebellar tests wnl. SKIN: Skin is warm and dry. He is not diaphoretic. PSYCH: He has a normal mood and affect. Behavior is normal. Judgment and thought content normal. Course Course 1904: The patient was evaluated in room C12. A complete history and physical exam was performed Cardiac monitoring: An order was placed for continuous cardiac monitoring. The monitor shows a rate of 90 with sinus rhythm Patient was hypoglycemic on arrival in the emergency department. Patient alert and oriented x3. Patient was given juice and given turkey sandwich to eat. 2044: Vital signs stable. X-ray shows large left-sided pleural effusion. Therapeutic INR of 3.6. Repeat blood sugar within normal limits. Patient's troponin is undetectable proBNP elevated. [facility]. Administered Medications Metoclopramide HCl (Metoclopramide Hcl Inj 5 Mg/Ml 2 Ml Vial) 10 mg IV Q6H PRN PRN Reason: Nausea Stop: 02/20/21 23:35 Last Admin: 01/22/21 00:28 Dose: 10 mg Documented by: [id number] Discontinued Medications Aspirin (Aspirin Chew 324 Mg) 324 mg PO NOW STA Stop: 01/21/21 19:12 Last Admin: 01/21/21 20:02 Dose: 324 mg Documented by: [id number] Metoprolol Tartrate (Metoprolol Tartrate 1 Mg/Ml Vial) 5 mg IV NOW STA Stop: 01/21/21 22:12 Last Admin: 01/21/21 22:25 Dose: 5 mg Documented by: [id number] Nitroglycerin (Nitroglycerin Sl 0.4 Mg/Tab Tab) 0.4 mg SL NOW STA Stop: 01/21/21 19:12 Last Admin: 01/21/21 20:02 Dose: 0.4 mg Documented by: [id number] Ondansetron HCl (Ondansetron Inj 2 Mg/Ml 2 Ml Vial) 4 mg IV NOW STA Stop: 01/21/21 18:40 Last Admin: 01/21/21 19:51 Dose: 4 mg Documented by: [id number] Medical Decision Making Laboratory Data Result diagrams: 01/21/21 19:11 01/21/21 19:11 Lab Results 01/21/21 01/21/21 01/21/21 Range/Units 18:56 19:09 19:11 WBC 8.01 (4.8-10.8) K/uL RBC 4.60 L (4.7-6.1) M/uL Hgb 14.7 (14.0-18.0) g/dL POC Hgb (14.0-18.0) g/dl Hct 44.4 (42-52) % POC Hct (42-52) % MCV 96.5 (80-100) fL MCH 32.0 (25-34) pg MCHC 33.1 (32-36) g/dL RDW Std Deviation 55.1 H (36.4-46.3) fL RDW Coeff of Kami 15.6 H (11.5-14.5) % Plt Count 455 H (130-400) K/uL MPV 8.9 (7.4-10.4) fL Immature Gran % (Auto) 0.2 % Neut % (Auto) 71.3 % Lymph % (Auto) 18.0 % [place] % (Auto) 9.0 % Eos % (Auto) 1.0 % Baso % (Auto) 0.5 % Neut # (Auto) 5.71 (1.4-6.5) K/uL Lymph # (Auto) 1.44 (1.2-3.4) K/uL [place] # (Auto) 0.72 H (0.11-0.59) K/uL Eos # (Auto) 0.08 (0-0.5) K/uL Baso # (Auto) 0.04 (0-0.2) K/uL Immature Gran # (Auto) 0.02 (0.00-0.02) K/uL PT (9.0-12.0) Seconds INR (0.9-1.1) APTT (21.0-31.0) Seconds PTT Ratio POC Sodium (135-144) mmol/L Sodium (136-145) mmol/L POC Potassium (3.3-5.0) mmol/L Potassium (3.5-5.1) mmol/L POC Chloride (101-112) mmol/L Chloride (98-107) mmol/L Carbon Dioxide (21-32) mmol/L POC Total CO2 (24-31) mmol/L Anion Gap (3-11) POC Anion Gap (16-25) mmol/L POC BUN (7-18) mg/dl BUN (7-18) mg/dl Creatinine (0.6-1.4) mg/dl POC Creatinine (0.6-1.3) mg/dl Est Cr Clr Drug Dosing ml/min Est GFR ( Amer) ml/min Est GFR (Non-Af Amer) ml/min BUN/Creatinine Ratio (10-20) Glucose (70-99) mg/dl POC Glucose 45 L* 46 L* (70-99) mg/dl POC Glucose (other) (70-99) mg/dl Calcium (8.5-10.1) mg/dl POC Ioniz Calcium Peterson (1.12-1.32) mmol/l Total Bilirubin (0.2-1) mg/dl AST (15-37) U/L ALT (12-78) U/L Alkaline Phosphatase (45-117) U/L Troponin I (0-0.045) ng/ml NT-Pro-B Natriuret Pep (0-900) pg/ml Total Protein (6.4-8.2) gm/dl Albumin (3.4-5.0) gm/dl Globulin (2.5-4.0) gm/dl Albumin/Globulin Ratio (0.9-2) Lipase (73-393) U/L COVID-19 Eval Order SARS-CoV-2 (PCR) (Negative) 01/21/21 01/21/21 01/21/21 Range/Units 19:11 19:11 19:50 WBC (4.8-10.8) K/uL RBC (4.7-6.1) M/uL Hgb (14.0-18.0) g/dL POC Hgb (14.0-18.0) g/dl Hct (42-52) % POC Hct (42-52) % MCV (80-100) fL MCH (25-34) pg MCHC (32-36) g/dL RDW Std Deviation (36.4-46.3) fL RDW Coeff of Kami (11.5-14.5) % Plt Count (130-400) K/uL MPV (7.4-10.4) fL Immature Gran % (Auto) % Neut % (Auto) % Lymph % (Auto) % [place] % (Auto) % Eos % (Auto) % Baso % (Auto) % Neut # (Auto) (1.4-6.5) K/uL Lymph # (Auto) (1.2-3.4) K/uL [place] # (Auto) (0.11-0.59) K/uL Eos # (Auto) (0-0.5) K/uL Baso # (Auto) (0-0.2) K/uL Immature Gran # (Auto) (0.00-0.02) K/uL PT (9.0-12.0) Seconds INR (0.9-1.1) APTT (21.0-31.0) Seconds PTT Ratio POC Sodium (135-144) mmol/L Sodium 130 L (136-145) mmol/L POC Potassium (3.3-5.0) mmol/L Potassium (3.5-5.1) mmol/L POC Chloride (101-112) mmol/L Chloride 95 L (98-107) mmol/L Carbon Dioxide 27 (21-32) mmol/L POC Total CO2 (24-31) mmol/L Anion Gap 8.0 (3-11) POC Anion Gap (16-25) mmol/L POC BUN (7-18) mg/dl BUN 20 H (7-18) mg/dl Creatinine 3.60 H (0.6-1.4) mg/dl POC Creatinine (0.6-1.3) mg/dl Est Cr Clr Drug Dosing 21.5 ml/min Est GFR ( Amer) 21.5 ml/min Est GFR (Non-Af Amer) 18.6 ml/min BUN/Creatinine Ratio 5.7 L (10-20) Glucose 39 L* (70-99) mg/dl POC Glucose 78 (70-99) mg/dl POC Glucose (other) (70-99) mg/dl Calcium 8.9 (8.5-10.1) mg/dl POC Ioniz Calcium Peterson (1.12-1.32) mmol/l Total Bilirubin 0.7 (0.2-1) mg/dl AST (15-37) U/L ALT 27 (12-78) U/L Alkaline Phosphatase 115 (45-117) U/L Troponin I < 0.015 Cancelled (0-0.045) ng/ml NT-Pro-B Natriuret Pep > 59451 H Cancelled (0-900) pg/ml Total Protein 8.2 (6.4-8.2) gm/dl Albumin 3.5 (3.4-5.0) gm/dl Globulin 4.7 H (2.5-4.0) gm/dl Albumin/Globulin Ratio 0.7 L (0.9-2) Lipase 48 L (73-393) U/L COVID-19 Eval Order SARS-CoV-2 (PCR) (Negative) 01/21/21 01/21/21 01/21/21 Range/Units 19:52 21:15 21:15 WBC (4.8-10.8) K/uL RBC (4.7-6.1) M/uL Hgb (14.0-18.0) g/dL POC Hgb (14.0-18.0) g/dl Hct (42-52) % POC Hct (42-52) % MCV (80-100) fL MCH (25-34) pg MCHC (32-36) g/dL RDW Std Deviation (36.4-46.3) fL RDW Coeff of Kami (11.5-14.5) % Plt Count (130-400) K/uL MPV (7.4-10.4) fL Immature Gran % (Auto) % Neut % (Auto) % Lymph % (Auto) % [place] % (Auto) % Eos % (Auto) % Baso % (Auto) % Neut # (Auto) (1.4-6.5) K/uL Lymph # (Auto) (1.2-3.4) K/uL [place] # (Auto) (0.11-0.59) K/uL Eos # (Auto) (0-0.5) K/uL Baso # (Auto) (0-0.2) K/uL Immature Gran # (Auto) (0.00-0.02) K/uL PT 33.2 H (9.0-12.0) Seconds INR 3.6 H (0.9-1.1) APTT 44.2 H (21.0-31.0) Seconds PTT Ratio 1.7 POC Sodium (135-144) mmol/L Sodium (136-145) mmol/L POC Potassium (3.3-5.0) mmol/L Potassium (3.5-5.1) mmol/L POC Chloride (101-112) mmol/L Chloride (98-107) mmol/L Carbon Dioxide (21-32) mmol/L POC Total CO2 (24-31) mmol/L Anion Gap (3-11) POC Anion Gap (16-25) mmol/L POC BUN (7-18) mg/dl BUN (7-18) mg/dl Creatinine (0.6-1.4) mg/dl POC Creatinine (0.6-1.3) mg/dl Est Cr Clr Drug Dosing ml/min Est GFR ( Amer) ml/min Est GFR (Non-Af Amer) ml/min BUN/Creatinine Ratio (10-20) Glucose (70-99) mg/dl POC Glucose (70-99) mg/dl POC Glucose (other) (70-99) mg/dl Calcium (8.5-10.1) mg/dl POC Ioniz Calcium Peterson (1.12-1.32) mmol/l Total Bilirubin (0.2-1) mg/dl AST (15-37) U/L ALT (12-78) U/L Alkaline Phosphatase (45-117) U/L Troponin I (0-0.045) ng/ml NT-Pro-B Natriuret Pep (0-900) pg/ml Total Protein (6.4-8.2) gm/dl Albumin (3.4-5.0) gm/dl Globulin (2.5-4.0) gm/dl Albumin/Globulin Ratio (0.9-2) Lipase (73-393) U/L COVID-19 Eval Order Covid19 at [facility] SARS-CoV-2 (PCR) NEGATIVE (Negative) 01/21/21 Range/Units 21:21 WBC (4.8-10.8) K/uL RBC (4.7-6.1) M/uL Hgb (14.0-18.0) g/dL POC Hgb 11.2 L (14.0-18.0) g/dl Hct (42-52) % POC Hct 33 L (42-52) % MCV (80-100) fL MCH (25-34) pg MCHC (32-36) g/dL RDW Std Deviation (36.4-46.3) fL RDW Coeff of Kami (11.5-14.5) % Plt Count (130-400) K/uL MPV (7.4-10.4) fL Immature Gran % (Auto) % Neut % (Auto) % Lymph % (Auto) % [place] % (Auto) % Eos % (Auto) % Baso % (Auto) % Neut # (Auto) (1.4-6.5) K/uL Lymph # (Auto) (1.2-3.4) K/uL [place] # (Auto) (0.11-0.59) K/uL Eos # (Auto) (0-0.5) K/uL Baso # (Auto) (0-0.2) K/uL Immature Gran # (Auto) (0.00-0.02) K/uL PT (9.0-12.0) Seconds INR (0.9-1.1) APTT (21.0-31.0) Seconds PTT Ratio POC Sodium 133 L (135-144) mmol/L Sodium (136-145) mmol/L POC Potassium 3.5 (3.3-5.0) mmol/L Potassium (3.5-5.1) mmol/L POC Chloride 90 L (101-112) mmol/L Chloride (98-107) mmol/L Carbon Dioxide (21-32) mmol/L POC Total CO2 27 (24-31) mmol/L Anion Gap (3-11) POC Anion Gap 20.0 (16-25) mmol/L POC BUN 22 H (7-18) mg/dl BUN (7-18) mg/dl Creatinine (0.6-1.4) mg/dl POC Creatinine 4.0 H (0.6-1.3) mg/dl Est Cr Clr Drug Dosing ml/min Est GFR ( Amer) ml/min Est GFR (Non-Af Amer) ml/min BUN/Creatinine Ratio (10-20) Glucose (70-99) mg/dl POC Glucose (70-99) mg/dl POC Glucose (other) 151 H (70-99) mg/dl Calcium (8.5-10.1) mg/dl POC Ioniz Calcium Peterson 1.07 L (1.12-1.32) mmol/l Total Bilirubin (0.2-1) mg/dl AST (15-37) U/L ALT (12-78) U/L Alkaline Phosphatase (45-117) U/L Troponin I (0-0.045) ng/ml NT-Pro-B Natriuret Pep (0-900) pg/ml Total Protein (6.4-8.2) gm/dl Albumin (3.4-5.0) gm/dl Globulin (2.5-4.0) gm/dl Albumin/Globulin Ratio (0.9-2) Lipase (73-393) U/L COVID-19 Eval Order SARS-CoV-2 (PCR) (Negative) Imaging Data Radiologist's Impression: Chest X-Ray 01/21/21 19:11 SINGLE VIEW CHEST CLINICAL HISTORY: Dyspnea. FINDINGS: 2 AP, portable, upright chest radiographs are compared to study dated 01/07/2021. The heart is enlarged. There is mild pulmonary vascular congestion. A layering left pleural effusion with associated left basilar consolidation is similar to previous. The right lung appears clear. No pneumothorax is seen. The skeletal structures are osteopenic. The bony thorax is grossly intact. IMPRESSION: 1. Cardiomegaly with mild pulmonary vascular congestion. 2. A layering left pleural effusion with left basilar consolidation is similar to the 01/07/2021 examination. ACT 112: Negative or not required by law. Electronically signed by: Dev Burden M.D. 01/21/2021 8:38 PM ECG Data Indication: + SOB/dyspnea Rate (beats per minute): 93 Rhythm: + normal sinus ECG Intervals/blocks: + Normal QRS, + Normal MD and + Normal QT-c ECG ST segments: + Normal ST segments MDM Narrative 1904: The patient was evaluated in room C12. A complete history and physical exam was performed Cardiac monitoring: An order was placed for continuous cardiac monitoring. The monitor shows a rate of 90 with sinus rhythm Patient was hypoglycemic on arrival in the emergency department. Patient alert and oriented x3. Patient was given juice and given turkey sandwich to eat. 2044: Vital signs stable. X-ray shows large left-sided pleural effusion. Therapeutic INR of 3.6. Repeat blood sugar within normal limits. Patient's troponin is undetectable proBNP elevated. [facility] Impression & Plan Pleural effusion, Hypoglycemia Discharge Plan Visit Data Chief Complaint: Vomiting Stated Complaint: NAUSEA, VOMITING, SOB Discharge Problem: Pleural effusion, Hypoglycemia Patient Disposition: Admitted As Inpatient Discharge Instructions Interventions: ED Discharge Assessment Last Done: 01/21/21 23:05
[2021-01-22] MEDS: INSULIN ASPART 100 UNITS/ML 3 ML PEN SC SCH ×5 (02:42→21:10)
[2021-01-22 06:04] LABS: INR 3.8 (0.9-1.1); Prothrombin Time 34.8 Seconds (9.0-12.0)
[2021-01-22 06:14] LABS: BUN Creatinine Ratio 6.3 (10-20); Calcium 7.8 mg/dl (8.5-10.1); Creatinine Clr Calc Pharmacy 18.7 ml/min; Est GFR (African American) 17.5 ml/min; Est GFR (Non-African American) 15.1 ml/min; Potassium 3.6 mmol/L (3.5-5.1)
[2021-01-22 06:18] LABS: Hemoglobin 10.7 g/dL (14.0-18.0); Mean Corpuscular Hemoglobin 31.7 pg (25-34); Mean Corpuscular Hgb Conc 32.4 g/dL (32-36); Mean Corpuscular Volume 97.6 fL (80-100); Mean Platelet Volume 8.4 fL (7.4-10.4); Platelet Count 314 K/uL (130-400); RDW Coefficient of Variation 15.6 % (11.5-14.5); RDW Standard Deviation 55.1 fL (36.4-46.3); Red Blood Count 3.38 M/uL (4.7-6.1); White Blood Count 6.43 K/uL (4.8-10.8)
[2021-01-22] MEDS: SERTRALINE HCL 100 MG TABLET PO SCH (07:46)
[2021-01-22] MEDS: buPROPion SR 100 MG TABCR PO SCH (07:46)
[2021-01-22] MEDS: carvediloL 25 MG TAB PO SCH ×2 (07:46→17:54)
[2021-01-22] MEDS: ATORVASTATIN 10 MG TAB PO SCH (07:46)
[2021-01-22] MEDS: LOSARTAN POTASSIUM 50 MG TAB PO SCH (07:46)
[2021-01-22] MEDS: amLODIPine BESYLATE 5 MG TAB PO SCH (07:46)
[2021-01-22] MEDS: INSULIN GLARGINE SOLOSTAR 100 UNITS/ML 3 ML PEN SQ SCH (08:46)
--- NOTE | 2021-01-22 10:43 | Pulmonary Consultation ---
Date of Consultation January 22, 2021 Assessment & Plan (1) Pleural effusion: Jorge Alberto De Los Santos is a 50yo male with PMHx significant for T1DM, ESRD on HD, h/o PE in 11/2020 (on Warfarin), non-ischemic cardiomyopathy, HFrEF (EF 40- 45% on 12/27/2020) and cyclical vomiting/gastroparesis who was admitted to [facility] on 01/21 for cyclic vomiting and progressive dyspnea x3 days. We were consulted for recurrent left pleural effusion. Recurrent Left Pleural Effusion, Shortness of Breath: S/p thoracentesis in 11/2020 and 12/2020; both largely transudative, negative for malignancy, and likely due to ESRD and HFrEF. Currently hypervolemic with BNP >35,000; suspect current effusion is transudative due to ESRD/HFrEF as well. We will plan for pleural US later today to assess for accessibility of left pleural effusion. If easily accessible, we will plan for thoracentesis with Pl eurX catheter placement, once INR is below 2.0, We will hold Warfarin, initiate Heparin gtt, and plan to give Vitamin K x1 for more rapid Warfarin reversal. Will plan on holding Heparin gtt several hours before procedure. The patient may need more definitive management if this continues to recur, such as chemical pleurodesis or VATS. Thank you for the consult. Pulmonary continue to follow along with you. (2) Pulmonary embolism: (3) Anticoagulated on warfarin: (4) 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, with long-term current use of insulin: (5) ESRD on dialysis: (6) Anemia of chronic disease: Supervising Physician Co-Signing Physician Notes Patient was discussed with the resident physician. He is status post thoracentesis of the left thoracic cavity x3 since November. In November he was diagnosed with a pulmonary embolism. He is currently on warfarin. He has a recurrent transudative effusion thought to be likely secondary from ESRD and combined diastolic and systolic CHF. Echo from 12/27/2020 demonstrated LVEF of 40 to 45%. He has moderate concentric left ventricular hypertrophy. We will hold warfarin and give IV vitamin K. We will check INR tomorrow. Patient is agreeable to Pleurx catheter placement. Please consult case management. He understands the risks and benefits of a Pleurx catheter. Hopefully this will allow for pleurodesis. Other considerations would include pigtail catheter insertion and chemical pleurodesis. Patient would prefer Pleurx catheter placement at this time. Constitutional: Patient appears to be of their stated age. Patient is in no apparent distress. Patient is well-developed. Eyes: Pupils are equal round and reactive to light. Conjunctivae are normal. Anicteric sclera. Ears nose, mouth and throat: Mallampati class 2. Normal posterior oropharynx. Uvula is midline. Neck: Trachea is midline. Visual inspection is normal. Respiratory: Diminished lung sounds on the left. Cardiovascular: Regular rate and rhythm. No murmurs. No edema. Gastrointestinal: Normal bowel sounds, soft, nontender and nondistended. No hepatosplenomegaly noted. Musculoskeletal: No cyanosis. Patient is able to move all extremities. Strength is 5 out of 5 in the upper and lower extremities. Skin: No rashes, warm dry and intact. Neurologic: No obvious focal neurological deficits seen. Psychiatric: Alert and oriented x3 with a euthymic affect. History of Present Illness Reason for Consultation: recurrent left-sided pleural effusion Requesting Physician: Dr. Walker Attending Physician: Guevara Loomis MD History of Present Illness Jorge Alberto De Los Santos is a 50yo male with PMHx significant for T1DM, ESRD on HD, h/o PE in 11/2020 (on Warfarin), non-ischemic cardiomyopathy, HFrEF (EF 40-45% on 12/27/2020) and cyclical vomiting/gastroparesis who was admitted to [facility] on 01/21 for cyclic vomiting and progressive dyspnea x3 days. Patient has h/o transudative left pleural effusion in 11/2020, with recurrence and subsequent drainage in late 12/2020. Cytology negative for malignancy - likely related to ESRD and HFrEF. Patient reports several days of progressive dyspnea (present at rest, and worst with exertion). Denies preceding illness, URI symptoms, fever/chills. Denies orthopnea or LE edema. In the ED the patient was hemodynamically stable on room air. Laboratory evaluation was significant for INR 3.6, PT 33.2, Na 133, Cr 4.28, BNP >35,000. CXR showed cardiomegaly with pulmonary vascular congestion as well as recurrent left pleural effusion (similar to 01/07). We were consulted for recurrent left pleural effusion. Allergies Allergy/AdvReac Type Severity Reaction Status Date / Time shellfish derived Allergy Severe anaphylaxis Verified 01/21/21 21:15 codeine Allergy Intermediate Hives Verified 01/21/21 21:15 promethazine Allergy Intermediate itchy/hives Verified 01/21/21 21:15 Home Medications Medication Instructions Recorded Confirmed Type bupropion HCl 100 mg tablet,12 hr 100 mg PO QAM ea 04/14/19 01/21/21 History sustained-release pantoprazole 40 mg tablet,delayed 40 mg PO BID 07/09/20 01/21/21 History release melatonin 3 mg tablet 3 mg PO HS tab 09/05/20 01/21/21 History acetaminophen 325 mg capsule 650 mg PO Q4H PRN cap 09/28/20 01/21/21 History carvedilol 25 mg tablet 25 mg PO BIDM tab 10/01/20 01/21/21 History ondansetron HCl 4 mg tablet 4 mg PO Q4H PRN 10/01/20 01/21/21 History (Zofran) atorvastatin 10 mg tablet 10 mg PO DAILY 11/29/20 01/21/21 History bisacodyl 10 mg rectal suppository 10 mg MT DAILY PRN 11/29/20 01/21/21 History darbepoetin jessee-albumin 60 60 mcg WK 11/29/20 01/21/21 History mcg/0.3 mL in albumin injection syringe hydrocortisone 1 % topical cream 1 applic TOPICAL Q6H PRN 11/29/20 01/21/21 History losartan 100 mg tablet 100 mg PO DAILY 11/29/20 01/21/21 History polyethylene glycol 3350 17 17 g PO QDL PRN 11/29/20 01/21/21 History gram/dose oral powder (Miralax) vitamin B complex and vitamin C 1 cap PO DAILY 11/29/20 01/21/21 History no.20-folic acid 1 mg capsule amlodipine 5 mg tablet 5 mg PO DAILY #90 tab 12/07/20 01/21/21 Rx sertraline 100 mg tablet 100 mg PO QAM #90 tab 12/11/20 01/21/21 Rx insulin aspart U-100 100 unit/mL 5 unit SUBCUT TIDM PRN 12/21/20 01/21/21 History (3 mL) subcutaneous pen (Novolog Flexpen U-100 Insulin aspart) insulin glargine 100 unit/mL (3 12 unit SUBCUT QAM ml 12/21/20 01/21/21 History mL) subcutaneous pen (Basaglar LivanPen U-100 Insulin) metoclopramide HCl 5 mg tablet 5 mg PO AC PRN #30 tab 01/07/21 01/21/21 Rx quetiapine 25 mg tablet (Seroquel) 25 mg PO HS #30 tab 01/07/21 01/21/21 Rx cholecalciferol (vitamin D3) 50 50 mcg PO DAILY #30 cap 01/17/21 01/21/21 Rx mcg (2,000 unit) capsule (Vitamin D3) lorazepam 0.5 mg tablet 0.5 mg PO Q12 PRN #60 tab 01/18/21 01/21/21 Rx warfarin 5 mg tablet 2.5 mg PO 4XWK 01/21/21 01/21/21 History warfarin 5 mg tablet 5 mg PO 3XWK 01/21/21 01/21/21 History Patient History Medical History (Updated 01/22/21 @ 17:22 by Lor Guadalupe MD, PhD) Anemia Anemia of chronic disease Anxiety AV fistula left arm CAD (coronary artery disease) mild, non-obstructive CAD per 10/2018 cardiac cath> [facility] Depression Diabetic retinopathy Dialysis patient DKA (diabetic ketoacidoses) Esophagitis ESRD (end stage renal disease) M,W,F (Follows with Dr. Lor Guadalupe; [facility]) Gastroparesis GERD (gastroesophageal reflux disease) Hematemesis Hypertension Intractable vomiting with nausea Kidney stones Lumbar compression fracture Lumbar radiculopathy Peripheral neuropathy Pleural effusion Retinopathy due to secondary diabetes Severe protein-calorie malnutrition Vomiting Surgical History H/O shoulder surgery RIGHT History of appendectomy History of cardiac cath 10/2018= no stents, no obstructive disease (at [facility]) History of cataract surgery History of esophagogastroduodenoscopy (EGD) (~03/08/20) History of hip surgery left HIP ARTHROSCOPY History of lithotripsy History of open reduction and internal fixation (ORIF) procedure right hip Nausea and vomiting after administration of anesthetic agent Permanent central venous catheter in place Permacath has been removed S/P arteriovenous (AV) fistula creation Family History Grandfather Myocardial infarction Grandfather (Maternal) Family history of diabetes mellitus Uncle Myocardial infarction Other No family history of adverse response to anesthesia Denies family history of Colon cancer Ovarian cancer Prostate cancer Breast cancer Social History Smoking Status: Never smoker Second Hand Exposure: No; Do You Dip or Chew Tobacco: No; Hx Alcohol Use: No Hx Substance Use: No Preferred Language: Zambian Communication Ability: Effective Visual Impairment: No Limitations Hearing Ability: Normal Personal Financial Planner Required: No Beliefs That Will Affect Care: None marital status: Current Living Situation: Parent Current Living Situation Comment: lives with parents. current occupational status: disabled How many Children do You have: 2 Other Information That Helps Us Care for You: No Feels Safe at Home: Yes Safety Concerns: Feels Safe At This Time Childhood Exposure to Second-Hand Smoke: Yes Dental Care, Regularly: No Physical Activity Frequency: 1-2 Times per Week Seatbelt Use: always Sunscreen Use: No Assistive Devices: Cane Review of Systems Review of Systems: All systems reviewed & are unremarkable except as noted in HPI & below Physical Exam Physical Exam: General: A&Ox3. NAD. Cooperative. HEENT: Atraumatic, normocephalic. Pulm: Decreased air movement in left base, -wheezes, -rales, -rhonchi. Symmetrical chest rise. No increase work of breathing. No respiratory distress. Cardiac: RRR, 1/6 systolic murmur best auscultated at right upper sternal border. Radial pulses intact and symmetrical. No LE edema. Abdominal: soft, non-tender, non-distended, BS x 4 Skin: warm, dry, no rash Results & Data Results & Data ([facility]) Vital Signs (Past 12 Hours) Vital Signs Temp Pulse Pulse Resp BP BP Pulse Ox 01/22/21 07:34 36.7 C 81 16 192/92 H 95 01/22/21 00:29 156/72 H 01/21/21 23:37 36.6 C 87 18 189/77 H 92 01/21/21 23:00 81 16 201/99 H 97 Resident Activity Tracking Resident Involvement: Resident Care Provided Care Provided: Adult Hospital Medicine
--- NOTE | 2021-01-22 12:25 | Gastrointestinal Consultation ---
Date of Consultation January 22, 2021 Assessment & Plan (1) Diabetic gastroparesis: Will try erythromycin 250mg TID before meals x 10 days. Consider discontinuing meds that may worsen GI motility: lorazepam, sertraline, seroquel. Full liquid diet - advance as tolerated. Present on Admission?: Yes Supervising Physician Co-Signing Physician Notes I saw and evaluated the patient. He presents with recurrent nausea and vomiting thought to be related to underlying gastroparesis. The patient has been previously evaluated by Dr. Martinez who performed an upper endoscopy several months ago at which time he performed Botox injection to the pylorus. Unfortunately despite this the patient continues to have symptoms. Physical examination No obvious distress No abdominal tenderness Impression patient with a history of gastroparesis, I wonder if some of his symptoms may be related to use of medication such as sertraline, Seroquel and lorazepam. Would recommend that the sertraline be discontinued as it is commonly associated with nausea and vomiting. Typically erythromycin could be offered as a salvage regimen however this does have a significant reaction with his amiodarone and Coumadin. As result we would recommend increasing the dose of Reglan to 10 mg 3 times daily. Recommendations Increase Reglan to 10 mg 3 times daily Consider stopping the sertraline or Seroquel Advance to a low residue diet History of Present Illness Reason for Consultation: Gastroparesis Requesting Physician: Dr. Walker Attending Physician: Guevara Loomis MD History of Present Illness Mr. De Los Santos is a 50 y/o male with hx of T1DM on insulin, diabetic retinopathy with macular edema, gastroparesis, ESRD on dialysis, CAD, anxiety, and who presented for nausea/vomiting last night. Most recent EGD in September 2020 with Botox injected in to the pylorus. He believes that his symptoms were improved for a few months after that tx. current OP tx for the gastroparesis is metoclopramide 5mg which he says he takes twice daily. He denies any adverse events/side effects from the metoclopramide. He was hypoglycemic on arrival. He tells me now that he feels better and requests to be able to restart eating/drinking. However, when rounding a second time today he reported that he has not had improvement. Allergies Allergy/AdvReac Type Severity Reaction Status Date / Time shellfish derived Allergy Severe anaphylaxis Verified 01/21/21 21:15 codeine Allergy Intermediate Hives Verified 01/21/21 21:15 promethazine Allergy Intermediate itchy/hives Verified 01/21/21 21:15 Home Medications Medication Instructions Recorded Confirmed Type bupropion HCl 100 mg tablet,12 hr 100 mg PO QAM ea 04/14/19 01/21/21 History sustained-release pantoprazole 40 mg tablet,delayed 40 mg PO BID 07/09/20 01/21/21 History release melatonin 3 mg tablet 3 mg PO HS tab 09/05/20 01/21/21 History acetaminophen 325 mg capsule 650 mg PO Q4H PRN cap 09/28/20 01/21/21 History carvedilol 25 mg tablet 25 mg PO BIDM tab 10/01/20 01/21/21 History ondansetron HCl 4 mg tablet 4 mg PO Q4H PRN 10/01/20 01/21/21 History (Zofran) atorvastatin 10 mg tablet 10 mg PO DAILY 11/29/20 01/21/21 History bisacodyl 10 mg rectal suppository 10 mg WV DAILY PRN 11/29/20 01/21/21 History darbepoetin jessee-albumin 60 60 mcg WK 11/29/20 01/21/21 History mcg/0.3 mL in albumin injection syringe hydrocortisone 1 % topical cream 1 applic TOPICAL Q6H PRN 11/29/20 01/21/21 History losartan 100 mg tablet 100 mg PO DAILY 11/29/20 01/21/21 History polyethylene glycol 3350 17 17 g PO QDL PRN 11/29/20 01/21/21 History gram/dose oral powder (Miralax) vitamin B complex and vitamin C 1 cap PO DAILY 11/29/20 01/21/21 History no.20-folic acid 1 mg capsule amlodipine 5 mg tablet 5 mg PO DAILY #90 tab 12/07/20 01/21/21 Rx sertraline 100 mg tablet 100 mg PO QAM #90 tab 12/11/20 01/21/21 Rx insulin aspart U-100 100 unit/mL 5 unit SUBCUT TIDM PRN 12/21/20 01/21/21 History (3 mL) subcutaneous pen (Novolog Flexpen U-100 Insulin aspart) insulin glargine 100 unit/mL (3 12 unit SUBCUT QAM ml 12/21/20 01/21/21 History mL) subcutaneous pen (Basaglar KwikPen U-100 Insulin) metoclopramide HCl 5 mg tablet 5 mg PO AC PRN #30 tab 01/07/21 01/21/21 Rx quetiapine 25 mg tablet (Seroquel) 25 mg PO HS #30 tab 01/07/21 01/21/21 Rx cholecalciferol (vitamin D3) 50 50 mcg PO DAILY #30 cap 01/17/21 01/21/21 Rx mcg (2,000 unit) capsule (Vitamin D3) lorazepam 0.5 mg tablet 0.5 mg PO Q12 PRN #60 tab 01/18/21 01/21/21 Rx warfarin 5 mg tablet 2.5 mg PO 4XWK 01/21/21 01/21/21 History warfarin 5 mg tablet 5 mg PO 3XWK 01/21/21 01/21/21 History Patient History Medical History Anemia Anemia of chronic disease Anxiety AV fistula left arm CAD (coronary artery disease) mild, non-obstructive CAD per 10/2018 cardiac cath> [facility] Depression Diabetic retinopathy Dialysis patient DKA (diabetic ketoacidoses) Esophagitis ESRD (end stage renal disease) M,W,F (Follows with Dr. Taylor Higgins; [facility]) Gastroparesis GERD (gastroesophageal reflux disease) Hematemesis Hypertension Intractable vomiting with nausea Kidney stones Lumbar compression fracture Lumbar radiculopathy Peripheral neuropathy Retinopathy due to secondary diabetes Severe protein-calorie malnutrition Vomiting Surgical History H/O shoulder surgery RIGHT History of appendectomy History of cardiac cath 10/2018= no stents, no obstructive disease (at [facility]) History of cataract surgery History of esophagogastroduodenoscopy (EGD) (~03/08/20) History of hip surgery left HIP ARTHROSCOPY History of lithotripsy History of open reduction and internal fixation (ORIF) procedure right hip Nausea and vomiting after administration of anesthetic agent Permanent central venous catheter in place Permacath has been removed S/P arteriovenous (AV) fistula creation Family History Grandfather Myocardial infarction Grandfather (Maternal) Family history of diabetes mellitus Uncle Myocardial infarction Other No family history of adverse response to anesthesia Denies family history of Colon cancer Ovarian cancer Prostate cancer Breast cancer Social History Smoking Status: Never smoker Second Hand Exposure: No; Do You Dip or Chew Tobacco: No; Hx Alcohol Use: No Hx Substance Use: No Preferred Language: Beninese Communication Ability: Effective Visual Impairment: No Limitations Hearing Ability: Normal Product Evangelist Required: No Beliefs That Will Affect Care: None marital status: Current Living Situation: Parent Current Living Situation Comment: lives with parents. current occupational status: disabled How many Children do You have: 2 Other Information That Helps Us Care for You: No Feels Safe at Home: Yes Safety Concerns: Feels Safe At This Time Childhood Exposure to Second-Hand Smoke: Yes Dental Care, Regularly: No Physical Activity Frequency: 1-2 Times per Week Seatbelt Use: always Sunscreen Use: No Assistive Devices: Cane Review of Systems Review of Systems: ROS: Gen: Denies weakness, fevers, weight loss Eyes: No eye redness, or pain, no recent vision changes Resp: No SOB, no cough Cardio: No palpitations/irregular beats, no chest pain GI: as per HPI, otherwise (-) : Denies pain on urination Skin: No jaundice, itching or new rashes Physical Exam Constitutional: WD/WN, vitals as above Eyes: PERRL, conjunctivae normal, anicteric sclerae ENMT: external ear and nose normal, oropharynx normal Neck: trachea midline, no thyromegaly Cardiovascular: RRR, no murmur, no edema Gastrointestinal (Abdomen): normal bowel sounds, soft, nontender, no hepatosplenomegaly Musculoskeletal: no cyanosis or clubbing, extremities motor strength 5/5 Skin: no rashes, warm and dry Neurologic: PERRL, EOMI, accommodation nl, no face palsy, no dysarthria Psychiatric: A+Ox3, euthymic affect Results & Data ([facility]) Vital Signs (Past 12 Hours) Vital Signs Temp Pulse Resp BP Pulse Ox 01/22/21 07:34 36.7 C 81 16 192/92 H 95 01/22/21 00:29 156/72 H Laboratory Results WBC 6, Hb 10.7, Hct 33, plts 314, PT 34, INR 3.8, Na 133, K 3.6, Cl 98, CO2 32, BUN 27, creatinine 4.2. Diagnostic Findings CT non contrast 12/26/20: diverticulosis w/o diverticulitis.
[2021-01-22] MEDS ORDERED: Nursing to Pharmacy Communication SCH (15:45)
[2021-01-22] MEDS ORDERED: WARFARIN SOD 5 MG TAB PO SCH (16:00)
--- NOTE | 2021-01-22 16:47 | Electrocardiogram Report ---
Test Reason : Blood Pressure : / mmHG Vent. Rate : 093 BPM Atrial Rate : 093 BPM P-R Int : 198 ms QRS Dur : 090 ms QT Int : 394 ms P-R-T Axes : 071 -09 082 degrees QTc Int : 489 ms Normal sinus rhythm Possible Left atrial enlargement Prolonged QT Abnormal ECG When compared with ECG of 06-JAN-2021 06:57, No significant change was found Confirmed by Jorge Alberto Romero ([id number]) on 01/22/2021 4:47:38 PM Referred By: REFERRED SELF Confirmed By:Jorge Alberto Romero
--- NOTE | 2021-01-22 17:26 | Nephrology Consultation ---
Date of Consultation January 22, 2021 Assessment & Plan (1) ESRD (end stage renal disease): ESRD with volume overload > recurrent L pleural effusion and some pulmonary vascular congestion -HD tomorrow first in AM w/ as aggressive fluid removal as he can tolerate -cont current BP meds -no fluid limit while on liquid diet and struggling w/ low BG History of Present Illness Reason for Consultation: ESRD on dialysis Requesting Physician: Dr Walker Attending Physician: Guevara Loomis MD History of Present Illness 50 y/o M whom I'm asked to see for dialysis needs after he was admitted overnight for recurrent cyclic vomiting. He dialyzes under my care at [facility] on MWF via AVF. He had a full tx yesterday with one L fluid removal and had some N on tx. Sx worsened/progressed to emesis later in the day and he presented to [facility] for evaluation. PMH includes longstanding Type 1 diabetes, end-stage renal disease on dialysis Thursday, Thursday, Thursday; hypertension w/ autonomic dysfunction/labile blood pressures, transudative recurrent L pleural effusion, HFrEF (45% 12/2020), intractable nausea/vomiting with severe gastroparesis, history of kidney stones, lumbar compression fracture, hip surgery s/p R hip surgery. he has had thoracenteses November and December this summer for mgt of peural effusion. his BG have been on the lower side today in 40-50s at times. GI is following for gastroparesis; pulmonary plans pleurex once INR is appropriate. When I saw pt today he was dyspneic and orthopneic but satting well on RA. He also c/o N and again lower BG. no uncontrolled pain. Allergies Allergy/AdvReac Type Severity Reaction Status Date / Time shellfish derived Allergy Severe anaphylaxis Verified 01/21/21 21:15 codeine Allergy Intermediate Hives Verified 01/21/21 21:15 promethazine Allergy Intermediate itchy/hives Verified 01/21/21 21:15 Home Medications Medication Instructions Recorded Confirmed Type bupropion HCl 100 mg tablet,12 hr 100 mg PO QAM ea 04/14/19 01/21/21 History sustained-release pantoprazole 40 mg tablet,delayed 40 mg PO BID 07/09/20 01/21/21 History release melatonin 3 mg tablet 3 mg PO HS tab 09/05/20 01/21/21 History acetaminophen 325 mg capsule 650 mg PO Q4H PRN cap 09/28/20 01/21/21 History carvedilol 25 mg tablet 25 mg PO BIDM tab 10/01/20 01/21/21 History ondansetron HCl 4 mg tablet 4 mg PO Q4H PRN 10/01/20 01/21/21 History (Zofran) atorvastatin 10 mg tablet 10 mg PO DAILY 11/29/20 01/21/21 History bisacodyl 10 mg rectal suppository 10 mg PA DAILY PRN 11/29/20 01/21/21 History darbepoetin jessee-albumin 60 60 mcg WK 11/29/20 01/21/21 History mcg/0.3 mL in albumin injection syringe hydrocortisone 1 % topical cream 1 applic TOPICAL Q6H PRN 11/29/20 01/21/21 History losartan 100 mg tablet 100 mg PO DAILY 11/29/20 01/21/21 History polyethylene glycol 3350 17 17 g PO QDL PRN 11/29/20 01/21/21 History gram/dose oral powder (Miralax) vitamin B complex and vitamin C 1 cap PO DAILY 11/29/20 01/21/21 History no.20-folic acid 1 mg capsule amlodipine 5 mg tablet 5 mg PO DAILY #90 tab 12/07/20 01/21/21 Rx sertraline 100 mg tablet 100 mg PO QAM #90 tab 12/11/20 01/21/21 Rx insulin aspart U-100 100 unit/mL 5 unit SUBCUT TIDM PRN 12/21/20 01/21/21 History (3 mL) subcutaneous pen (Novolog Flexpen U-100 Insulin aspart) insulin glargine 100 unit/mL (3 12 unit SUBCUT QAM ml 12/21/20 01/21/21 History mL) subcutaneous pen (Basaglar KwikPen U-100 Insulin) metoclopramide HCl 5 mg tablet 5 mg PO AC PRN #30 tab 01/07/21 01/21/21 Rx quetiapine 25 mg tablet (Seroquel) 25 mg PO HS #30 tab 01/07/21 01/21/21 Rx cholecalciferol (vitamin D3) 50 50 mcg PO DAILY #30 cap 01/17/21 01/21/21 Rx mcg (2,000 unit) capsule (Vitamin D3) lorazepam 0.5 mg tablet 0.5 mg PO Q12 PRN #60 tab 01/18/21 01/21/21 Rx warfarin 5 mg tablet 2.5 mg PO 4XWK 01/21/21 01/21/21 History warfarin 5 mg tablet 5 mg PO 3XWK 01/21/21 01/21/21 History Patient History Medical History (Updated 01/22/21 @ 17:22 by Lor Guadalupe MD, PhD) Anemia Anemia of chronic disease Anxiety AV fistula left arm CAD (coronary artery disease) mild, non-obstructive CAD per 10/2018 cardiac cath> [facility] Depression Diabetic retinopathy Dialysis patient DKA (diabetic ketoacidoses) Esophagitis ESRD (end stage renal disease) M,W,F (Follows with Dr. Lor Guadalupe; [facility]) Gastroparesis GERD (gastroesophageal reflux disease) Hematemesis Hypertension Intractable vomiting with nausea Kidney stones Lumbar compression fracture Lumbar radiculopathy Peripheral neuropathy Pleural effusion Retinopathy due to secondary diabetes Severe protein-calorie malnutrition Vomiting Surgical History H/O shoulder surgery RIGHT History of appendectomy History of cardiac cath 10/2018= no stents, no obstructive disease (at [facility]) History of cataract surgery History of esophagogastroduodenoscopy (EGD) (~03/08/20) History of hip surgery left HIP ARTHROSCOPY History of lithotripsy History of open reduction and internal fixation (ORIF) procedure right hip Nausea and vomiting after administration of anesthetic agent Permanent central venous catheter in place Permacath has been removed S/P arteriovenous (AV) fistula creation Family History Grandfather Myocardial infarction Grandfather (Maternal) Family history of diabetes mellitus Uncle Myocardial infarction Other No family history of adverse response to anesthesia Denies family history of Colon cancer Ovarian cancer Prostate cancer Breast cancer Social History Smoking Status: Never smoker Second Hand Exposure: No; Do You Dip or Chew Tobacco: No; Hx Alcohol Use: No Hx Substance Use: No Preferred Language: Korean Communication Ability: Effective Visual Impairment: No Limitations Hearing Ability: Normal 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 current occupational status: disabled How many Children do You have: 2 Other Information That Helps Us Care for You: No Feels Safe at Home: Yes Safety Concerns: Feels Safe At This Time Childhood Exposure to Second-Hand Smoke: Yes Dental Care, Regularly: No Physical Activity Frequency: 1-2 Times per Week Seatbelt Use: always Sunscreen Use: No Assistive Devices: Cane Review of Systems Review of Systems: All systems reviewed & are unremarkable except as noted in HPI & below Genitourinary: + problem reported (anuric) Physical Exam Constitutional: well developed, + thin, + frail appearing and cooperative Eyes: EOM intact bilaterally ENMT: Ears: no external ear abnormality Nose: no external nose abnormality Mouth: + dry oral mucous membranes Neck: no nuchal rigidity Respiratory: normal respiratory effort Auscultation: + diminished lung sounds (L>>R base) Cardiovascular: Rate/Rhythm: regular rate and regular rhythm Heart Sounds: + murmur Extremities: + AV fistula (+t/b L); no edema Gastrointestinal (Abdomen): Inspection/Auscultation: normal bowel sounds Percussion/Palpation: abdomen soft; abdomen nontender Musculoskeletal: Extremities: strength 5/5 throughout Skin: no rashes, warm and dry Neurologic: spicer, fluent speech, no tremor Psychiatric: Orientation: alert and oriented x 3 Speech: normal rat e/rhythm/volume of speech Results & Data ([facility]) Vital Signs (Past 12 Hours) Vital Signs Temp Pulse Resp BP Pulse Ox 01/22/21 15:00 36.6 C 72 16 147/75 H 94 01/22/21 07:34 36.7 C 81 16 192/92 H 95 Laboratory Results 01/22/21 05:30 01/22/21 05:30 Diagnostic Findings cxr 1. Cardiomegaly with mild pulmonary vascular congestion. 2. A layering left pleural effusion with left basilar consolidation is similar to the 01/07/2021 examination.
--- NOTE | 2021-01-22 18:01 | Billing Data ---
Date of Service January 22, 2021 Coding Level of Care Code 28150 Inpt Consult Level 5
[2021-01-22] MEDS ORDERED: PHYTONADIONE 5 MG in SODIUM CHLORIDE 0.9% 50 ML IV ONE (18:45)
--- NOTE | 2021-01-22 20:04 | Billing Data ---
Date of Service January 22, 2021 Coding Level of Care Code 84660 Initial Inpt Care Lvl 3
[2021-01-22] MEDS: MELATONIN 3 MG TAB PO SCH (21:04)
[2021-01-22] MEDS: QUEtiapine FUMARATE 25 MG TABLET PO SCH (21:04)
[2021-01-23] MEDS ORDERED: HEPARIN SOD (PORCINE) 1000 UNIT/ML IV ONE (07:00)
[2021-01-23] MEDS ORDERED: SODIUM CHLORIDE 0.9% 1000ML 1,000 ML IV PRN ×2 (07:00→08:28)
[2021-01-23] MEDS ORDERED: PHARMACY GLYCEMIC MGMT CONSULT PRN (07:48)
--- NOTE | 2021-01-23 07:58 | Hospitalist Progress Note ---
Date of Service January 22, 2021 Assessment & Plan (1) Cyclic vomiting syndrome: Plan: Continue metoclopramide, Compazine Appreciate GI consult, no plan for EGD at this time Trial of erythropoetin Given anxiety increasing his symptoms will continue on PRN lorazapam currently (2) Gastroparesis: (3) Pleural effusion: Plan: Worsening shortness of breath per patient Per pulmonology management Reversal of INR with vitamin K Planning on thoracocentesis tomorrow (4) 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, with long-term current use of insulin: Plan: Continue his regular insulin management as diet is advanced. Hypoglycemia due to NPO status, improving with powerade (5) Hypoglycemia: Plan: As above Hypoglycemia protocol ordered (6) Pulmonary embolism: Plan: Diagnosed in November at [place]. Holding warfarin as above for thoracocentesis (7) ESRD (end stage renal disease): Plan: Appreciate nephrology consult for dialysis management (8) Severe protein-calorie malnutrition: (9) Anxiety: Plan: Continue bupropion, seroquel and lorazepam PRN (10) Hypertension: Plan: Continue his routine medications with amlodipine, carvedilol and losartan. Ok to give prior to dialysis, do not hold. Admission and Anticipated Discharge Date Admission Date: January 21, 2021 Subjective Improving nausea, wishes to increase diet to beyond liquids. No abdominal pain. No chest pain but ongoing shortness of breath without cough of fever/chills. Presentation similar to prior occasions with shortness of breath (not yet improved) and nausea/vomiting during dialysis. Review of Systems Review of Systems: All systems reviewed & are unremarkable except as noted in HPI & below Physical Exam Constitutional: well developed and + frail appearing; + not well nourished and no acute distress ENMT: external ear and nose normal, oropharynx normal Neck: trachea midline, no thyromegaly Cardiovascular: RRR, no murmur, no edema Gastrointestinal (Abdomen): normal bowel sounds, soft, nontender, no hepatosplenomegaly Musculoskeletal: no cyanosis or clubbing, extremities motor strength 5/5 Skin: no rashes, warm and dry Neurologic: PERRL, EOMI, accommodation nl, no face palsy, no dysarthria Psychiatric: A+Ox3, euthymic affect Results & Data Results & Data ([facility]) Vital Signs (Past 12 Hours) Vital Signs Temp Pulse Resp BP Pulse Ox 01/22/21 15:00 36.6 C 72 16 147/75 H 94 01/22/21 07:34 36.7 C 81 16 192/92 H 95 PG Care Time/CCT Total # of Minutes Spent Total Time Spent with Patient: Total time spent is greater than 50% in coordination of care (as documented) at patient's floor/unit and/or counseling patient: Coding Level of Care Code 49702 Subseq Hosp Care Lvl 2 Diagnoses Pleural effusion J90 Hypoglycemia E16.2 Pulmonary embolism I26.99 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, with long-term current use of insulin E10.29 ESRD (end stage renal disease) N18.6 Gastroparesis K31.84 Severe protein-calorie malnutrition E43 Anxiety F41.9 Cyclic vomiting syndrome R11.15 Hypertension I10 Hypertension type: unspecified (1) Hypertension Hypertension type: unspecified Qualified Code(s): I10 - Essential (primary) hypertension
[2021-01-23] MEDS: METOCLOPRAMIDE HCL INJ 5 MG/ML 2 ML VIAL IV PRN ×2 (08:29→14:35)
[2021-01-23] MEDS: SERTRALINE HCL 100 MG TABLET PO SCH (08:33)
[2021-01-23] MEDS: buPROPion SR 100 MG TABCR PO SCH (08:33)
[2021-01-23 08:34] LABS: Hematocrit (blood only) 35.7 % (42-52); Hemoglobin 11.3 g/dL (14.0-18.0); Mean Corpuscular Hemoglobin 31.7 pg (25-34); Mean Corpuscular Hgb Conc 31.7 g/dL (32-36); Mean Platelet Volume 8.9 fL (7.4-10.4); Platelet Count 283 K/uL (130-400); RDW Coefficient of Variation 15.4 % (11.5-14.5); RDW Standard Deviation 55.9 fL (36.4-46.3); Red Blood Count 3.57 M/uL (4.7-6.1); White Blood Count 7.87 K/uL (4.8-10.8)
[2021-01-23] MEDS: ATORVASTATIN 10 MG TAB PO SCH (08:35)
[2021-01-23] MEDS: INSULIN GLARGINE SOLOSTAR 100 UNITS/ML 3 ML PEN SQ SCH (08:36)
[2021-01-23] MEDS: INSULIN ASPART 100 UNITS/ML 3 ML PEN SC SCH ×4 (08:37→20:52)
[2021-01-23 08:44] LABS: INR 1.4 (0.9-1.1); Prothrombin Time 13.5 Seconds (9.0-12.0)
[2021-01-23 09:18] LABS: Albumin Globulin Ratio 0.9 (0.9-2); Albumin Level 2.6 gm/dl (3.4-5.0); BUN Creatinine Ratio 6.3 (10-20); Bilirubin,Total 0.4 mg/dl (0.2-1); Calcium 7.7 mg/dl (8.5-10.1); Creatinine Clr Calc Pharmacy 12.4 ml/min; Est GFR (Non-African American) 9.5 ml/min; Magnesium 2.2 mg/dl (1.8-2.4); Potassium 4.4 mmol/L (3.5-5.1); Total Protein 5.6 gm/dl (6.4-8.2)
[2021-01-23] MEDS ORDERED: Heparin IV Adult Wt-Based Standard *NO* Bolus Protocol STA (09:24)
[2021-01-23 09:34] LABS: Beta-Hydroxybutyrate 9.35 mg/dl (0.2-2.81)
[2021-01-23] MEDS ORDERED: HEPARIN SODIUM/DEXTROSE 25,000 UNITS/500 ML BAG IV SCH ×2 (09:45→11:15)
[2021-01-23 09:56] LABS: Partial Thromboplastin Time 27.3 Seconds (21.0-31.0)
[2021-01-23] MEDS: HEPARIN SOD (PORCINE) 1000 UNIT/ML IV SCH ×2 (10:29→12:11)
[2021-01-23] MEDS ORDERED: Heparin IV Adult Wt-Based Standard *NO* Bolus Protocol IV SCH (11:01)
--- NOTE | 2021-01-23 11:26 | Dialysis Progress Note ---
Date of Service January 23, 2021 Assessment & Plan (1) ESRD (end stage renal disease): Plan: ESRD with volume overload > recurrent L pleural effusion and some pulmonary vascular congestion -HD today with 4-hour treatment and w/ as aggressive fluid removal as he can to lerate in the range of 3.5 to 4 L if possible -He remains above FLOR threshold -cont current BP meds -no fluid limit while on liquid diet and struggling w/ low BG Next dialysis tentatively for tomorrow short treatment in order to make progress on chronic fluid overload Admission and Anticipated Discharge Date Admission Date: January 21, 2021 Subjective Seen on dialysis at approximately 10:20 AM today. Ongoing significant nausea. No emesis so far on treatment. Blood sugars remain labile and this morning extremely elevated after lows yesterday. Lying flat on room air without complaints of dyspnea. Review of Systems 2 Review of Systems: All systems reviewed & are unremarkable except as noted in Subjective Physical Exam Constitutional: well developed, + thin, + frail appearing and cooperative Uncomfortable with nausea Eyes: EOM intact bilaterally ENMT: Ears: no external ear abnormality Nose: no external nose abnormality Mouth: + dry oral mucous membranes Neck: no nuchal rigidity Respiratory: normal respiratory effort Auscultation: + diminished lung sounds (L>>R base) Cardiovascular: Rate/Rhythm: regular rate and regular rhythm Heart Sounds: + murmur Extremities: + AV fistula (+t/b L); no edema Gastrointestinal (Abdomen): Inspection/Auscultation: normal bowel sounds Percussion/Palpation: abdomen soft; abdomen nontender Musculoskeletal: Extremities: strength 5/5 throughout Skin: no rashes, warm and dry Psychiatric: Orientation: alert and oriented x 3 Speech: normal rate/rhythm/volume of speech Results & Data ([facility]) Vital Signs (Past 12 Hours) Vital Signs Temp Pulse Pulse Pulse Resp BP BP 01/23/21 11:00 96 H 133/74 01/23/21 10:40 98 H 130/73 01/23/21 10:20 100 H 135/83 01/23/21 10:00 109 H 139/78 01/23/21 09:40 110 H 133/82 01/23/21 09:20 113 H 151/85 H 01/23/21 09:07 36.6 C 112 H 01/23/21 07:37 36.7 C 108 H 18 132/83 Pulse Ox 08/18/21 11:00 01/23/21 10:40 01/23/21 10:20 01/23/21 10:00 01/23/21 09:40 01/23/21 09:20 01/23/21 09:07 01/23/21 07:37 96 Laboratory Results 01/23/21 08:10 01/23/21 08:10
[2021-01-23] MEDS: amLODIPine BESYLATE 5 MG TAB PO SCH (14:01)
[2021-01-23] MEDS: carvediloL 25 MG TAB PO SCH ×2 (14:02→18:07)
[2021-01-23] MEDS: LOSARTAN POTASSIUM 50 MG TAB PO SCH (14:03)
[2021-01-23 14:19] LABS: INR 1.2 (0.9-1.1); Partial Thromboplastin Time 25.6 Seconds (21.0-31.0); Prothrombin Time 12.4 Seconds (9.0-12.0)
[2021-01-23 14:22] LABS: Hematocrit (blood only) 35.7 % (42-52); Hemoglobin 11.7 g/dL (14.0-18.0); Mean Corpuscular Hemoglobin 31.6 pg (25-34); Mean Corpuscular Hgb Conc 32.8 g/dL (32-36); Mean Corpuscular Volume 96.5 fL (80-100); RDW Coefficient of Variation 15.4 % (11.5-14.5); RDW Standard Deviation 53.6 fL (36.4-46.3); White Blood Count 5.99 K/uL (4.8-10.8)
[2021-01-23 14:55] LABS: Mean Platelet Volume 8.9 fL (7.4-10.4); Platelet Count 272 K/uL (130-400)
[2021-01-23 14:56] LABS: Basophils # (auto) 0.03 K/uL (0-0.2); Basophils % (auto) 0.5 %; Eosinophils # (auto) 0.18 K/uL (0-0.5); Immature Granulocytes # (auto) 0.03 K/uL (0.00-0.02); Immature Granulocytes % (auto) 0.5 %; Lymphocytes # (auto) 1.31 K/uL (1.2-3.4); Lymphocytes % (auto) 21.9 %; Monocytes # (auto) 0.86 K/uL (0.11-0.59); Monocytes % (auto) 14.4 %; Neutrophils # (auto) 3.58 K/uL (1.4-6.5); Neutrophils % (auto) 59.7 %; RBC Morphology Unremarkable
--- NOTE | 2021-01-23 15:16 | Pharmacy Report ---
Pharmacy Glycemic Short Note 2 - Date of Service January 23, 2021 - Glycemic Short BSG Results (Last 24 hours): 01/22/21 01/22/21 01/22/21 14:41 17:10 20:51 Glucose POC Glucose 98 79 201 H 01/23/21 01/23/21 01/23/21 08:10 08:12 08:14 Glucose 439 H* POC Glucose 428 H* 459 H* 01/23/21 13:47 Glucose POC Glucose 100 H OUTPATIENT ANTIDIABETIC REGIMEN: * Lantus 12 units SQ QAM * Novolog 5 units TIDM ASSESSMENT: * 50 y/o M with Type 1 diabetes who is well known to our glycemic service from frequent admissions in the past. Currently admitted for vomiting. * Patient is on chronic hemodialysis. * He was started on Lantus 12 units QAM on admission. Fasting BSG yesterday was 121 mg/dl. Same basal dose was continued today. * His AM BSG today was elevated above 400 today. Called and spoke to nurse. She said he was drinking Powerade and had finished a bottle before this BSG was obtained today AM. Novolog parameters changed based on what has worked for him during his recent admission early this month. * Pre-lunch BSG = 100 mg/dl at goal. * Pt also received hemodialysis this AM. PLAN FOR INPATIENT GLYCEMIC CONTROL: * Basal insulin * Lantus 12 units SQ QAM * Bolus insulin * NovoLog per scale ACHS or Q6hrs while NPO * Goal Range: Low 110 mg/dL - High 160 mg/dL * Correction Factor: 40 mg/dL/unit * Nutritional / Prandial insulin per carb ratio of 1 unit per 9 grams CHO consumed PLAN FOR DISCHARGE: * TBD
[2021-01-23] MEDS ORDERED: WARFARIN SOD 2.5 MG TAB PO SCH (16:00)
--- NOTE | 2021-01-23 17:44 | Pulmonology Progress Note ---
Date of Service January 23, 2021 Assessment & Plan (1) Pleural effusion: Plan: 50-year-old male with a history of ESRD on dialysis presenting to the hospital due to vomiting and shortness of breath. Recurrent left pleural effusion likely secondary to ESRD and diastolic CHF. This has been tapped on 3 separate occasions since November. We were unable to perform a Pleurx catheter today as the patient was undergoing hemodialysis. He received vitamin K yesterday and his INR was reversed. We will hold heparin starting at 6 AM and plan for Pleurx catheter later in the day. (2) Pulmonary embolism: (3) Anticoagulated on warfarin: (4) 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, with long-term current use of insulin: (5) ESRD on dialysis: (6) Anemia of chronic disease: (7) ESRD (end stage renal disease) on dialysis: Admission and Anticipated Discharge Date Admission Date: January 21, 2021 Subjective Patient seen and examined today. He feels less nauseous. Shortness of breath is same. Denies chest pain. Underwent hemodialysis today. Review of Systems Review of Systems: All systems reviewed & are unremarkable except as noted in HPI & below Physical Exam Physical Exam: Constitutional: Patient appears to be of their stated age. Patient is in no apparent distress. Patient is well-developed. Eyes: Pupils are equal round and reactive to light. Conjunctivae are normal. Anicteric sclera. Neck: Trachea is midline. Visual inspection is normal. Respiratory: Diminished lung sounds on the left Cardiovascular: Regular rate and rhythm. No murmurs. No edema. Gastrointestinal: Normal bowel sounds, soft, nontender and nondistended. No hepatosplenomegaly noted. Musculoskeletal: No cyanosis. Patient is able to move all extremities. Strength is 5 out of 5 in the upper and lower extremities. Skin: No rashes, warm dry and intact. Neurologic: No obvious focal neurological deficits seen. Psychiatric: Alert and oriented x3 with a euthymic affect. Results & Data Results & Data ([facility]) Vital Signs (Past 12 Hours) Vital Signs Temp Pulse Pulse Pulse Resp BP BP 01/23/21 15:00 97.9 F 74 16 173/89 H 01/23/21 13:47 98.1 F 80 18 187/83 H 01/23/21 13:37 97.7 F 80 175/83 H 01/23/21 13:00 76 159/82 H 01/23/21 12:40 82 172/82 H 01/23/21 12:20 80 158/80 H 01/23/21 12:00 80 158/80 H 01/23/21 11:40 79 165/81 H 01/23/21 11:20 79 153/74 H 01/23/21 11:00 96 H 133/74 01/23/21 10:40 98 H 130/73 01/23/21 10:20 100 H 135/83 01/23/21 10:00 109 H 139/78 01/23/21 09:40 110 H 133/82 01/23/21 09:20 113 H 151/85 H 01/23/21 09:07 97.9 F 112 H 01/23/21 07:37 98.1 F 108 H 18 132/83 Pulse Ox 01/23/21 15:00 92 01/23/21 13:47 99 01/23/21 13:37 01/23/21 13:00 01/23/21 12:40 01/23/21 12:20 01/23/21 12:00 01/23/21 11:40 01/23/21 11:20 01/23/21 11:00 01/23/21 10:40 01/23/21 10:20 01/23/21 10:00 01/23/21 09:40 01/23/21 09:20 01/23/21 09:07 01/23/21 07:37 96 vital signs, labs and imaging reviewed PG Care Time/CCT Total # of Minutes Spent Total Time Spent with Patient: Total time spent is greater than 50% in coordination of care (as documented) at patient's floor/unit and/or counseling patient: Coding Level of Care Code 54960 Subseq Hosp Care Lvl 2 Diagnoses Pleural effusion J90 Pulmonary embolism I26.99 Anticoagulated on warfarin Z79.01 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 ESRD (end stage renal disease) on dialysis N18.6; Z99.2
[2021-01-23] MEDS ORDERED: Nursing to Pharmacy Communication SCH (18:00)
--- NOTE | 2021-01-23 20:08 | Hospitalist Progress Note ---
Date of Service January 23, 2021 Assessment & Plan (1) Cyclic vomiting syndrome: Plan: Continue metoclopramide, Compazine Appreciate GI consult, no plan for EGD at this time Trial of erythropoietin Continue metoclopramide Given anxiety increasing his symptoms will continue on Seroquel/sertraline and PRN lorazepam currently (2) Gastroparesis: Plan: as above (3) Pleural effusion: Plan: Worsening shortness of breath per patient Per pulmonology management Reversal of INR with vitamin K Planning on thoracocentesis tomorrow (4) 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, with long-term current use of insulin: Plan: Continue his regular insulin management as diet is advanced. Consult pharmacy for glycemic management (5) Hypoglycemia: Plan: As above Hypoglycemia protocol ordered (6) Pulmonary embolism: Plan: Diagnosed in November at [place]. Holding warfarin as above for thoracocentesis, currently on heparin IV drip as managed by pulmonology however given small size of initial PE I am not overly concerned about cross coverage for anticoagulation. (7) ESRD (end stage renal disease): Plan: Appreciate nephrology consult for dialysis management (8) Severe protein-calorie malnutrition: (9) Anxiety: Plan: Continue bupropion, sertraline, seroquel and lorazepam PRN (10) Hypertension: Plan: Continue his routine medications with amlodipine, carvedilol and losartan. Ok to give prior to dialysis, do not hold. Admission and Anticipated Discharge Date Admission Date: January 21, 2021 Subjective Mildly improved shortness of breath after dialysis. Nausea at baseline. Fortun ately no significant vomiting. Review of Systems Review of Systems: All systems reviewed & are unremarkable except as noted in HPI & below Physical Exam Constitutional: well developed and + frail appearing; + not well nourished and no acute distress ENMT: external ear and nose normal, oropharynx normal Neck: trachea midline, no thyromegaly Respiratory: normal respiratory effort Auscultation: + diminished lung sounds (left base aeration improved) Cardiovascular: RRR, no murmur, no edema Gastrointestinal (Abdomen): normal bowel sounds, soft, nontender, no hepatosplenomegaly Musculoskeletal: no cyanosis or clubbing, extremities motor strength 5/5 Skin: no rashes, warm and dry Neurologic: PERRL, EOMI, accommodation nl, no face palsy, no dysarthria Psychiatric: A+Ox3, euthymic affect Results & Data Results & Data ([facility]) Vital Signs (Past 12 Hours) Vital Signs Temp Pulse Pulse Pulse Resp BP BP 01/23/21 18:04 70 156/73 H 01/23/21 15:00 36.6 C 74 16 173/89 H 01/23/21 13:47 36.7 C 80 18 187/83 H 01/23/21 13:37 36.5 C 80 175/83 H 01/23/21 13:00 76 159/82 H 01/23/21 12:40 82 172/82 H 01/23/21 12:20 80 158/80 H 01/23/21 12:00 80 158/80 H 01/23/21 11:40 79 165/81 H 01/23/21 11:20 79 153/74 H 01/23/21 11:00 96 H 133/74 01/23/21 10:40 98 H 130/73 01/23/21 10:20 100 H 135/83 01/23/21 10:00 109 H 139/78 01/23/21 09:40 110 H 133/82 01/23/21 09:20 113 H 151/85 H 01/23/21 09:07 36.6 C 112 H Pulse Ox 01/23/21 18:04 01/23/21 15:00 92 01/23/21 13:47 99 01/23/21 13:37 01/23/21 13:00 01/23/21 12:40 01/23/21 12:20 01/23/21 12:00 01/23/21 11:40 01/23/21 11:20 01/23/21 11:00 01/23/21 10:40 01/23/21 10:20 01/23/21 10:00 01/23/21 09:40 01/23/21 09:20 01/23/21 09:07 PG Care Time/CCT Total # of Minutes Spent Total Time Spent with Patient: Total time spent is greater than 50% in coordination of care (as documented) at patient's floor/unit and/or counseling patient: Coding Level of Care Code 96710 Subseq Hosp Care Lvl 2 Diagnoses Cyclic vomiting syndrome R11.15 Gastroparesis K31.84 Pleural effusion J90 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
[2021-01-23 20:45] LABS: Partial Thromboplastin Ratio 1.6; Partial Thromboplastin Time 43.3 Seconds (21.0-31.0)
[2021-01-23] MEDS: QUEtiapine FUMARATE 25 MG TABLET PO SCH (20:51)
[2021-01-23] MEDS: MELATONIN 3 MG TAB PO SCH (20:51)
[2021-01-24 03:35] LABS: INR 1.2 (0.9-1.1); Partial Thromboplastin Ratio 1.8; Prothrombin Time 11.6 Seconds (9.0-12.0)
[2021-01-24] MEDS ORDERED: [UNRECOGNIZED DRUG - REMARK] ONE (06:00)
[2021-01-24] MEDS: METOCLOPRAMIDE HCL INJ 5 MG/ML 2 ML VIAL IV PRN ×3 (07:55→23:59)
[2021-01-24] MEDS: PROCHLORPERAZINE 5 MG in SYRINGE 4 ML IV PRN ×2 (08:33→19:42)
[2021-01-24] MEDS ORDERED: SODIUM CHLORIDE 0.9% 1000ML 1,000 ML IV PRN (09:10)
[2021-01-24] MEDS: LORazepam 0.5 MG TAB PO PRN ×2 (09:31→20:56)
[2021-01-24] MEDS: LOSARTAN POTASSIUM 50 MG TAB PO SCH (09:34)
[2021-01-24] MEDS: buPROPion SR 100 MG TABCR PO SCH (09:35)
[2021-01-24] MEDS: ATORVASTATIN 10 MG TAB PO SCH (09:35)
[2021-01-24] MEDS: amLODIPine BESYLATE 5 MG TAB PO SCH (09:35)
[2021-01-24] MEDS: SERTRALINE HCL 100 MG TABLET PO SCH (09:36)
[2021-01-24] MEDS: carvediloL 25 MG TAB PO SCH ×2 (09:36→18:41)
[2021-01-24] MEDS: INSULIN GLARGINE SOLOSTAR 100 UNITS/ML 3 ML PEN SQ SCH (09:39)
[2021-01-24] MEDS: INSULIN ASPART 100 UNITS/ML 3 ML PEN SC SCH ×4 (09:40→21:08)
--- NOTE | 2021-01-24 11:30 | XRay Report ---
XR chest 1V portable CLINICAL HISTORY: f/u COMPARISON STUDY: January 21, 2021 FINDINGS: No pneumothorax. Stable large left pleural effusion associated with atelectasis/infiltrate at the left lower lung. Pre viously seen air bronchograms within consolidated portion of the left lung appear more conspicuous si nce prior study Diffuse prominence of pulmonary interstitium is seen at the aerated lung parenchyma. Cardiomediastina l silhouette is stable and partially obscured on the left. Pulmonary vasculature is indistinct.. Osseous structures: unremarkable IMPRESSION: 1. Stable large left pleural effusion with mild interval worsening of opacities at the left lower leonardo ng which could represent atelectasis or infiltrates. ACT 112: Negative or not required by law. The above report was generated using voice recognition software. It may contain grammatical, syntax o r spelling errors. Electronically signed by: Cristina Wong DO 01/24/2021 11:28 AM
[2021-01-24] MEDS ORDERED: LORazepam 1 MG/2 ML VIAL IV STA (11:41)
[2021-01-24] MEDS ORDERED: ONDANSETRON INJ 2 MG/ML 2 ML VIAL IV ONE (11:45)
[2021-01-24] MEDS ORDERED: LIDOCAINE 1% LOCAL 20 ML VIAL ONE (12:39)
[2021-01-24] MEDS ORDERED: hydrALAZINE HCL 20 MG/ML VIAL IV ONE (13:19)
--- NOTE | 2021-01-24 13:31 | Procedure Note ---
Procedure Note Date of Service January 24, 2021 Coding CPT Codes Pulmonary/Thoracic - Pulmonary and Thoracic: 74959 Insert pleural cathereter w/cuff ([id number]) [facility] [place] Procedure Codes (Charges) Pulmonary/Thoracic Procedure 1: Pulmonary and Thoracic: 55606 Insert pleural cathereter w/cuff
[2021-01-24] MEDS: hydrALAZINE HCL 20 MG/ML VIAL IV PRN ×2 (13:46→17:35)
--- NOTE | 2021-01-24 13:51 | Procedure Note ---
Procedure Note Date of Service January 24, 2021 Note PREOPERATIVE DIAGNOSIS: Recurrent left-sided effusion secondary to end-stage renal disease POSTOPERATIVE DIAGNOSIS: Same as above PROCEDURE PERFORMED: Left PleurX catheter placement. ANESTHESIA: 20 mL of 1% lidocaine without epinephrine COMPLICATIONS: None. Written consent was obtained and placed on the chart. Timeout was done prior to the procedure. INDICATION FOR PROCEDURE: The patient is an 88-year-old male with a complex past medical history, most pertinent for CLL. The patient has developed a recurrent right pleural effusion. In an effort to palliate his respiratory symptoms, the patient was referred for a PleurX catheter placement for home drainage. The patient understood the risks and possible complications of the procedure and wished to proceed. OPERATIVE FINDINGS: The left chest was opacified on preoperative chest x-ray, and 1 liter of serous fluid was withdrawn before clamping the drainage tube. There were no bleeding complications, and the fluid was not blood tinged. DESCRIPTION OF PROCEDURE: The patient was placed in a semirecumbent position. I evaluated the left pleura with the ultrasound and located an adequate spot insert the finder needle to inject lidocaine and aspirate pleural fluid. The left chest and upper abdomen were prepped and draped in the usual sterile fashion. Lidocaine 1% was used to infiltrate two areas; one in the left upper quadrant where the tube would exit and the other along the anterior axillary line in the seventh intercostal space. A small counterincision was made in the left upper quadrant area. Through the anterior axillary line area, the pleural space was accessed by Seldinger technique. The counterincision was made around the guidewire and then the PleurX catheter was tunneled from the right upper quadrant small incision to the one overlying the ribs. A sheath introducer was then passed over the wire and then the PleurX catheter was placed through the sheath introducer. There was good return of fluid. 1 liter of serous fluid was withdrawn slowly as the small counterincision was closed with Monocryl stitch. The catheter was capped off, and sterile dressings were applied. The patient tolerated the procedure well without any complications. Post chest x-ray demonstrated adequate placement of the catheter with no significant pneumothorax. Coding CPT Codes Pulmonary/Thoracic - Pulmonary and Thoracic: 17851 Insert pleural cathereter w/cuff ([id number]) [facility] [place] Codes (Charges) Pulmonary/Thoracic Procedure 1: Pulmonary and Thoracic: 49458 Insert pleural cathereter w/cuff
--- NOTE | 2021-01-24 13:57 | XRay Report ---
SINGLE VIEW CHEST CLINICAL HISTORY: Chest tube placement. FINDINGS: An AP, portable, upright chest radiograph is compared to study performed earlier the same d ay 01/24/2021. The heart is top normal for projection. The pulmonary vasculature is noncongested. A le ft-sided chest tube has been placed. The tip projects over the left apex. There is a small residual l eft pleural effusion with left basilar consolidation. The right lung appears clear. No pneumothorax i s seen. The skeletal structures appear osteopenic. The bony thorax is grossly intact. IMPRESSION: 1. A left-sided chest tube has been placed as above. No pneumothorax is seen post procedure. 2. There is a small left pleural effusion with associated basilar consolidation. This has significant ly decreased in size as compared to today's earlier examination. ACT 112: Negative or not required by law. Electronically signed by: Dev Burden M.D. 01/24/2021 1:55 PM
[2021-01-24] MEDS ORDERED: oxyCODONE HCL IR 5 MG TAB (IMMEDIATE RELEASE) ONE (14:29)
[2021-01-24 14:36] LABS: Glucose Pleural Fluid 251 mg/dl
[2021-01-24 14:47] LABS: LDH Pleural Fluid 70 U/L; Total Protein Pleural Fluid 2.9 g/dl
[2021-01-24 15:26] LABS: Basophils, Fluid 5 %; Eosinophils, Fluid 13 %; Lymphocytes, Fluid 60 %; Mono,Macrophage,Mesothelial 17 %; Neutrophils, Fluid 5 %
[2021-01-24 15:27] LABS: Appearance Pleural Fluid CLEAR; Color Pleural Fluid STRAW; RBC Pleural Fluid (A) < 3000 /uL; Source Pleural Fluid LEFT LUNG; WBC Pleural Fluid (A) 168 /uL
[2021-01-24] MEDS ORDERED: WARFARIN SOD 5 MG TAB PO SCH (16:00)
--- NOTE | 2021-01-24 16:14 | Pulmonology Progress Note ---
Date of Service January 24, 2021 Assessment & Plan (1) Pleural effusion: Plan: 50-year-old male with a history of ESRD on dialysis presenting to the hospital due to vomiting and shortness of breath. Recurrent left pleural effusion likely secondary to ESRD and diastolic CHF. This has been tapped on 3 separate occasions since November. Left pleural catheter placed at bedside. 1 L of staci-colored fluid was evacuated. Please restart heparin drip 6 hours prior to the procedure. Patient should be drained daily for the next 3 days and then every other day. I will see him in the clinic in 7 to 10 days. Thank you for the consultation. We will continue to follow along with you. (2) Pulmonary embolism: (3) Anticoagulated on warfarin: (4) 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, with long-term current use of insulin: (5) ESRD on dialysis: (6) Anemia of chronic disease: Admission and Anticipated Discharge Date Admission Date: January 21, 2021 Subjective Patient seen and examined this morning. He is very anxious and having episodes of nausea. I gave him 4 mg of IV Zofran and 1 mg of IV Ativan which improved his anxiety and nausea. He was also given 5 mg of IV hydralazine for elevated blood pressure. The place of Pleurx catheter had bedside. He tolerated the procedure well. He notes that his shortness of breath is improved. Review of Systems Review of Systems: All systems reviewed & are unremarkable except as noted in HPI & below Physical Exam Physical Exam: Constitutional: Patient appears to be of their stated age. Patient is in no apparent distress. Patient is well-developed. Eyes: Pupils are equal round and reactive to light. Conjunctivae are normal. Anicteric sclera. Neck: Trachea is midline. Visual inspection is normal. Respiratory: Diminished lung sounds on the left Cardiovascular: Regular rate and rhythm. No murmurs. No edema. Gastrointestinal: Normal bowel sounds, soft, nontender and nondistended. No hepatosplenomegaly noted. Musculoskeletal: No cyanosis. Patient is able to move all extremities. Strength is 5 out of 5 in the upper and lower extremities. Skin: No rashes, warm dry and intact. Neurologic: No obvious focal neurological deficits seen. Psychiatric: Alert and oriented x3 with a euthymic affect. Results & Data Results & Data ([facility]) Vital Signs (Past 12 Hours) Vital Signs Temp Pulse Pulse Pulse Resp BP BP 01/24/21 16:00 74 154/84 H 01/24/21 15:40 74 151/82 H 01/24/21 15:20 74 149/82 H 01/24/21 15:00 75 167/82 H 01/24/21 14:43 74 166/86 H 01/24/21 14:38 98.2 F 75 01/24/21 13:19 01/24/21 12:14 77 01/24/21 11:50 84 01/24/21 10:36 01/24/21 07:55 98.2 F 75 20 204/86 H BP Pulse Ox 01/24/21 16:00 01/24/21 15:40 01/24/21 15:20 01/24/21 15:00 01/24/21 14:43 01/24/21 14:38 01/24/21 13:19 198/96 H 01/24/21 12:14 193/91 H 01/24/21 11:50 198/98 H 01/24/21 10:36 202/80 H 01/24/21 07:55 95 vital signs, labs and imaging personally reviewed. Chest x-ray post Pleurx catheter shows improved left pleural effusion. PG Care Time/CCT Total # of Minutes Spent Total Time Spent with Patient: Total time spent is greater than 50% in coordination of care (as documented) at patient's floor/unit and/or counseling patient: Coding Level of Care Code 71573 Subseq Hosp Care Lvl 3 Diagnoses Pleural effusion J90 Pulmonary embolism I26.99 Anticoagulated on warfarin Z79.01 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
--- NOTE | 2021-01-24 16:41 | Dialysis Progress Note ---
Date of Service January 24, 2021 Assessment & Plan (1) ESRD (end stage renal disease) on dialysis: Plan: ESRD with volume overload > recurrent L pleural effusion and some pulmonary vascular congestion -HD today short treatment w/ goal 1.2L off after tap for 1L today -He remains above FLOR threshold -cont current BP meds -no fluid limit while on liquid diet and struggling w/ low BG Next dialysis for tomorrow per outpatient routine Admission and Anticipated Discharge Date Admission Date: January 21, 2021 Subjective had pleurex placed w/ 1L fluid removed and c/o soreness from procedure; ongoing N Review of Systems Review of Systems: All systems reviewed & are unremarkable except as noted in Subjective Physical Exam 2 Constitutional: well developed and + thin; no acute distress Eyes: EOM intact bilaterally ENMT: Ears: no external ear abnormality Nose: no external nose abnormality Mouth: + dry oral mucous membranes Neck: no nuchal rigidity Respiratory: normal respiratory effort Auscultation: + diminished lung sounds L chest dressing Cardiovascular: Rate/Rhythm: regular rate and regular rhythm Extremities: + AV fistula (+ t/b); no edema Gastrointestinal (Abdomen): Inspection/Auscultation: normal bowel sounds Percussion/Palpation: abdomen soft; abdomen nontender Musculoskeletal: Extremities: strength 5/5 throughout Skin: no rashes, warm and dry Neurologic: spicer, fluent speech, no tremor Results & Data ([facility]) Vital Signs (Past 12 Hours) Vital Signs Temp Pulse Pulse Pulse Resp BP BP 01/24/21 16:00 74 154/84 H 01/24/21 15:40 74 151/82 H 01/24/21 15:20 74 149/82 H 01/24/21 15:00 75 167/82 H 01/24/21 14:43 74 166/86 H 01/24/21 14:38 36.8 C 75 01/24/21 13:19 01/24/21 12:14 77 01/24/21 11:50 84 01/24/21 10:36 01/24/21 07:55 36.8 C 75 20 204/86 H BP Pulse Ox 01/24/21 16:00 01/24/21 15:40 01/24/21 15:20 01/24/21 15:00 01/24/21 14:43 01/24/21 14:38 01/24/21 13:19 198/96 H 01/24/21 12:14 193/91 H 01/24/21 11:50 198/98 H 01/24/21 10:36 202/80 H 01/24/21 07:55 95 Laboratory Results 01/23/21 13:59 01/23/21 08:10
--- NOTE | 2021-01-24 18:50 | Hospitalist Progress Note ---
Date of Service January 24, 2021 Assessment & Plan (1) Cyclic vomiting syndrome: Plan: Continue metoclopramide, Compazine PRN Appreciate GI consult, no plan for EGD at this time Given anxiety increasing his symptoms will continue on Seroquel/sertraline and PRN lorazepam currently (2) Gastroparesis: Plan: as above (3) Pleural effusion: Plan: Worsening shortness of breath per patient Reversal of INR with vitamin K Pleurx drain placed today Appreciate pulmonology management (4) 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, with long-term current use of insulin: Plan: Continue his regular insulin management as diet is advanced. Consult pharmacy for glycemic management (5) Hypoglycemia: Plan: As above Hypoglycemia protocol ordered (6) Pulmonary embolism: Plan: Diagnosed in November at [place]. Holding warfarin as above for thoracocentesis, currently on heparin IV drip as managed by pulmonology however given small size of initial PE I am not overly concerned about cross coverage for anticoagulation. (7) ESRD (end stage renal disease): Plan: Appreciate nephrology consult for dialysis management (8) Severe protein-calorie malnutrition: (9) Anxiety: Plan: Continue bupropion, sertraline, seroquel and lorazepam PRN (10) Hypertension: Plan: Continue his routine medications with amlodipine, carvedilol and losartan. Ok to give prior to dialysis, do not hold. Admission and Anticipated Discharge Date Admission Date: January 21, 2021 Subjective Pleurx drain placed by pulmonology today. Having some pain after this. Nausea increased after pleurx placed. Patient seen prio to dialysis Review of Systems Review of Systems: All systems reviewed & are unremarkable except as noted in HPI & below Physical Exam Constitutional: well developed and + frail appearing; + not well nourished and no acute distress Neck: trachea midline, no thyromegaly Respiratory: normal respiratory effort Musculoskeletal: no cyanosis or clubbing, extremities motor strength 5/5 Skin: no rashes, warm and dry Psychiatric: A+Ox3, euthymic affect Results & Data Results & Data ([facility]) Vital Signs (Past 12 Hours) Vital Signs Temp Pulse Pulse Pulse Resp BP BP 01/24/21 18:04 78 01/24/21 17:27 36.7 C 77 16 203/91 H 01/24/21 17:13 36.8 C 75 01/24/21 16:46 75 170/90 H 01/24/21 16:00 74 154/84 H 01/24/21 15:40 74 151/82 H 01/24/21 15:20 74 149/82 H 01/24/21 15:00 75 167/82 H 01/24/21 14:43 74 166/86 H 01/24/21 14:38 36.8 C 75 01/24/21 13:19 01/24/21 12:14 77 01/24/21 11:50 84 01/24/21 10:36 01/24/21 07:55 36.8 C 75 20 204/86 H BP Pulse Ox 01/24/21 18:04 169/81 H 01/24/21 17:27 98 01/24/21 17:13 180/81 H 01/24/21 16:46 01/24/21 16:00 01/24/21 15:40 01/24/21 15:20 01/24/21 15:00 01/24/21 14:43 01/24/21 14:38 01/24/21 13:19 198/96 H 01/24/21 12:14 193/91 H 01/24/21 11:50 198/98 H 01/24/21 10:36 202/80 H 01/24/21 07:55 95 PG Care Time/CCT Total # of Minutes Spent Total Time Spent with Patient: Total time spent is greater than 50% in coordination of care (as documented) at patient's floor/unit and/or counseling patient: Coding Level of Care Code 15487 Subseq Hosp Care Lvl 2 Diagnoses Cyclic vomiting syndrome R11.15 Gastroparesis K31.84 Pleural effusion J90 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
[2021-01-24] MEDS: QUEtiapine FUMARATE 25 MG TABLET PO SCH (20:51)
[2021-01-24] MEDS: MELATONIN 3 MG TAB PO SCH (20:51)
[2021-01-25] MEDS: hydrALAZINE HCL 20 MG/ML VIAL IV PRN (00:28)
[2021-01-25] MEDS: oxyCODONE HCL IR 5 MG TAB (IMMEDIATE RELEASE) PO PRN ×3 (00:41→17:34)
--- NOTE | 2021-01-25 00:46 | Communication Note ---
Date of Service: January 25, 2021 0020: Received a call from nursing staff regarding bleeding from PleurX catheter s/p placement earlier today. I did evaluate the patient's medical record prior to presenting to bedside. Patient was noted to recently be on Coumadin and Heparin gtt. Heparin had been discontinued with normalization of aPTT prior to PleurX placement. Upon assessment at bedside, there appears to be a moderate amount of clotted blood on the linens. Lung sounds clear throughout other than LEFT sided base where breath sounds were diminished. The dressing was taken down and there appeared to be continuous oozing of blood at the catheter insertion site at the LEFT anterior axillary line. No surrounding hematoma noted. Mild TTP appreciated. Orders were placed for labs to include CBC, PRP, Coags. CXR was ordered as well. 0031: I reached out to Dr. Lazo by phone to provide update and to receive recommendations. He agrees with CXR and labs. Recommendation for reinforced dressing and drainage from Pleurx to ensure no bloody drainage. 250 mL of straw- colored pleural fluid was drained. No bloody drainage noted. Patient tolerated well. CXR and labs were reviewed. CXR shows improved LEFT sided pleural effusion. H&H stable. Coags WNL. Information relayed to Dr. Lazo. Will continue to watch for any changes or bleeding. Recommendations provided to nursing staff. 35 minutes of level 5 inpatient time to be added to this interaction. Thank you. Coding Level of Care Code None Time Spent (min) 35
[2021-01-25 00:58] LABS: Basophils # (auto) 0.01 K/uL (0-0.2); Basophils % (auto) 0.1 %; Eosinophils # (auto) 0.02 K/uL (0-0.5); Eosinophils % (auto) 0.2 %; Hematocrit (blood only) 35.1 % (42-52); Hemoglobin 11.4 g/dL (14.0-18.0); Immature Granulocytes # (auto) 0.01 K/uL (0.00-0.02); Immature Granulocytes % (auto) 0.1 %; Lymphocytes # (auto) 0.71 K/uL (1.2-3.4); Lymphocytes % (auto) 8.3 %; Mean Corpuscular Hemoglobin 31.3 pg (25-34); Mean Corpuscular Volume 96.4 fL (80-100); Mean Platelet Volume 8.7 fL (7.4-10.4); Monocytes # (auto) 0.39 K/uL (0.11-0.59); Monocytes % (auto) 4.5 %; Neutrophils # (auto) 7.46 K/uL (1.4-6.5); Neutrophils % (auto) 86.8 %; Platelet Count 310 K/uL (130-400); RDW Coefficient of Variation 15.2 % (11.5-14.5); RDW Standard Deviation 53.1 fL (36.4-46.3); Red Blood Count 3.64 M/uL (4.7-6.1)
[2021-01-25 01:10] LABS: Mean Corpuscular Hgb Conc 32.5 g/dL (32-36)
[2021-01-25 01:11] LABS: INR 1.1 (0.9-1.1); Partial Thromboplastin Time 26.2 Seconds (21.0-31.0); Prothrombin Time 11.4 Seconds (9.0-12.0)
[2021-01-25 01:16] LABS: BUN Creatinine Ratio 5.5 (10-20); Calcium 8.2 mg/dl (8.5-10.1); Creatinine Clr Calc Pharmacy 18.5 ml/min; Est GFR (African American) 19.3 ml/min; Est GFR (Non-African American) 16.7 ml/min
[2021-01-25] MEDS: PROCHLORPERAZINE 5 MG in SYRINGE 4 ML IV PRN (03:08)
[2021-01-25 05:52] LABS: Basophils # (auto) 0.01 K/uL (0-0.2); Basophils % (auto) 0.1 %; Hematocrit (blood only) 33.3 % (42-52); Hemoglobin 10.9 g/dL (14.0-18.0); Immature Granulocytes # (auto) 0.02 K/uL (0.00-0.02); Immature Granulocytes % (auto) 0.2 %; Lymphocytes # (auto) 0.75 K/uL (1.2-3.4); Lymphocytes % (auto) 8.3 %; Mean Corpuscular Hemoglobin 31.5 pg (25-34); Mean Corpuscular Hgb Conc 32.7 g/dL (32-36); Mean Corpuscular Volume 96.2 fL (80-100); Mean Platelet Volume 8.9 fL (7.4-10.4); Monocytes # (auto) 0.67 K/uL (0.11-0.59); Monocytes % (auto) 7.4 %; Platelet Count 319 K/uL (130-400); RDW Coefficient of Variation 15.5 % (11.5-14.5); Red Blood Count 3.46 M/uL (4.7-6.1); White Blood Count 9.05 K/uL (4.8-10.8)
[2021-01-25] MEDS ORDERED: HEPARIN SODIUM/DEXTROSE 25,000 UNITS/500 ML BAG IV SCH (06:00)
[2021-01-25 06:06] LABS: INR 1.1 (0.9-1.1); Partial Thromboplastin Time 26.3 Seconds (21.0-31.0); Prothrombin Time 11.5 Seconds (9.0-12.0)
[2021-01-25] MEDS: Heparin IV Adult Wt-Based Standard *NO* Bolus Protocol IV SCH ×3 (06:07→11:26)
[2021-01-25 06:11] LABS: BUN Creatinine Ratio 5.8 (10-20); Calcium 8.2 mg/dl (8.5-10.1); Creatinine Clr Calc Pharmacy 17.2 ml/min; Est GFR (African American) 17.7 ml/min; Est GFR (Non-African American) 15.3 ml/min; Potassium 4.2 mmol/L (3.5-5.1)
[2021-01-25] MEDS ORDERED: HYDROmorphone INJ 0.5 MG/0.5 ML SYR IV STA (07:52)
--- NOTE | 2021-01-25 07:54 | Procedure Note ---
Procedure Note Date of Service January 25, 2021 Note The patient's previous dressing was taken down. No bleeding was noted from the incision sites. A Pleurx Vacutainer was attached to the Pleurx catheter. Approximately 650 mL of staci-colored fluid was evacuated from the pleural space. Patient felt less shortness of breath after drainage. A dressing was reapplied to the Pleurx catheter site. No significant complications from the drainage was seen. Additionally, patient underwent drainage of 250 mL of staci-colored fluid from the Pleurx catheter site overnight. Coding CPT Codes Pulmonary/Thoracic - Pulmonary and Thoracic: 02592 Pleural drainage w/imaging ([id number]) [facility] [place] Procedure Codes (Charges) Pulmonary/Thoracic Procedure 2: Pulmonary and Thoracic: 59099 Pleural drainage w/imaging
--- NOTE | 2021-01-25 07:59 | XRay Report ---
XR chest 1V portable HISTORY: Left-sided chest pain. LEFT sided pain COMPARISON: Chest 01/24/2021. FINDINGS: Left-sided chest tube is unchanged in position. Small to moderate left pleural effusion and left basilar densities persist. No pneumothorax. The heart remains top normal in size. No evidence f or pulmonary edema. The right lung is clear. IMPRESSION: Left-sided chest tube is unchanged in position. The small to moderate left effusion persists. ACT 112: Negative or not required by law. Electronically signed by: Cristiano Brown M.D. 01/25/2021 7:58 AM
[2021-01-25] MEDS ORDERED: SODIUM CHLORIDE 0.9% 1000ML 1,000 ML IV PRN (08:09)
[2021-01-25] MEDS: INSULIN ASPART 100 UNITS/ML 3 ML PEN SC SCH ×4 (08:28→21:52)
[2021-01-25] MEDS: INSULIN GLARGINE SOLOSTAR 100 UNITS/ML 3 ML PEN SQ SCH (08:28)
[2021-01-25] MEDS ORDERED: METOCLOPRAMIDE HCL INJ 5 MG/ML 2 ML VIAL IV PRN (08:30)
[2021-01-25] MEDS: buPROPion SR 100 MG TABCR PO SCH (09:12)
[2021-01-25] MEDS: ATORVASTATIN 10 MG TAB PO SCH (09:13)
[2021-01-25] MEDS: SERTRALINE HCL 50 MG TABLET PO SCH (09:13)
--- NOTE | 2021-01-25 10:46 | Pulmonology Progress Note ---
Date of Service January 25, 2021 Assessment & Plan (1) Pleural effusion: Plan: 50-year-old male with a history of ESRD on dialysis presenting to the hospital due to vomiting and shortness of breath. Recurrent left pleural effusion likely secondary to ESRD and diastolic CHF. This has been tapped on 3 separate occasions since November. Continue daily drainage from the left Pleurx catheter site. I am hoping that the Pleurx catheter will assist in pleurodesis. We can reevaluate removing the Pleurx catheter in 6 weeks or so. Continue with pain control utilizing oxycodone. I did give a one- time dose of Dilaudid. Bleeding at the site is currently minimal. Can consider restarting heparin later this afternoon. Thank you for the consultation. We will continue to follow along with you. (2) Pulmonary embolism: (3) Anticoagulated on warfarin: (4) 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, with long-term current use of insulin: (5) ESRD on dialysis: (6) Anemia of chronic disease: Admission and Anticipated Discharge Date Admission Date: January 21, 2021 Subjective Patient seen and examined this morning. He was having significant pain around the Pleurx insertion site. There was some oozing of blood noted yesterday. Repeat chest x-ray and labs were obtained which were all stable. He notes a sharp pain around the incision site. He denies any shortness of breath. He feels that shortness of breath is actually improved. He did have some nausea overnight. Review of Systems Review of Systems: 03/21 point ROS negative unless noted elsewhere Physical Exam Physical Exam: Constitutional: Patient appears to be of their stated age. Patient is in no apparent distress. Patient is well-developed. Eyes: Pupils are equal round and reactive to light. Conjunctivae are normal. Anicteric sclera. Neck: Trachea is midline. Visual inspection is normal. Respiratory: Diminished lung sounds on the left Cardiovascular: Regular rate and rhythm. No murmurs. No edema. Gastrointestinal: Normal bowel sounds, soft, nontender and nondistended. No hepatosplenomegaly noted. Musculoskeletal: No cyanosis. Patient is able to move all extremities. Strength is 5 out of 5 in the upper and lower extremities. Skin: Left Pleurx incision site appears clean dry and intact. Sutures in place. Neurologic: No obvious focal neurological deficits seen. Psychiatric: Alert and oriented x3 with a euthymic affect. Results & Data Results & Data ([facility]) Vital Signs (Past 12 Hours) Vital Signs Temp Pulse Pulse Resp BP Pulse Ox 01/25/21 08:35 112 H 104/65 01/25/21 07:16 98.1 F 102 H 14 105/66 96 01/25/21 01:55 77 149/76 H 98 01/25/21 00:16 82 16 195/83 H 97 Vital signs, labs and imaging reviewed. PG Care Time/CCT Total # of Minutes Spent Total Time Spent with Patient: Total time spent is greater than 50% in coordination of care (as documented) at patient's floor/unit and/or counseling patient: Coding Level of Care Code 56037 Subseq Hosp Care Lvl 3 Diagnoses Pleural effusion J90 Pulmonary embolism I26.99 Anticoagulated on warfarin Z79.01 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
--- NOTE | 2021-01-25 11:09 | Pharmacy Report ---
Pharmacy Glycemic Short Note 2 - Date of Service January 25, 2021 - Glycemic Short BSG Results (Last 24 hours): 01/24/21 01/24/21 01/24/21 12:06 17:26 20:52 Glucose POC Glucose 214 H 117 H 126 H 01/25/21 01/25/21 01/25/21 00:43 05:32 08:05 Glucose 160 H 220 H POC Glucose 218 H OUTPATIENT ANTIDIABETIC REGIMEN: * Lantus 12 units SQ QAM * Novolog 5 units TIDM ASSESSMENT: 01/25/21 * Blood sugars acceptable for a very difficult to control type 1 diabetic, ranging 117-220mg/dl over past 24 hours * Consider changing to Regular insulin (from NovoLog) for gastroparesis if blood sugars become elevated post prandial * Fasting BSG 220mg/dl - Consider adding HS dose of basal if AM BSG continues to be elevated tomorrow morning * No changes at this time in insulin orders * Continues daily HD 01/23/21 * 50 y/o M with Type 1 diabetes who is well known to our glycemic service from frequent admissions in the past. Currently admitted for vomiting. * Patient is on chronic hemodialysis. * He was started on Lantus 12 units QAM on admission. Fasting BSG yesterday was 121 mg/dl. Same basal dose was continued today. * His AM BSG today was elevated above 400 today. Called and spoke to nurse. She said he was drinking Powerade and had finished a bottle before this BSG was obtained today AM. Novolog parameters changed based on what has worked for him during his recent admission early this month. * Pre-lunch BSG = 100 mg/dl at goal. * Pt also received hemodialysis this AM. PLAN FOR INPATIENT GLYCEMIC CONTROL: * Basal insulin * Lantus 12 units SQ QAM * Bolus insulin * NovoLog per scale ACHS or Q6hrs while NPO * Goal Range: Low 110 mg/dL - High 160 mg/dL - for type 1 with gastroparesis * Correction Factor: 40 mg/dL/unit * Nutritional / Prandial insulin per carb ratio of 1 unit per 9 grams CHO consumed PLAN FOR DISCHARGE: * TBD
[2021-01-25] MEDS ORDERED: METOCLOPRAMIDE HCL 5 MG TABLET PO SCH (11:30)
--- NOTE | 2021-01-25 11:48 | Gastroenterology Progress Note ---
Date of Service January 25, 2021 Assessment & Plan (1) Diabetic gastroparesis: Plan: Continue erythromycin 250mg TID before meals x total 10 days. Consider discontinuing meds that may worsen GI motility: lorazepam, sertraline, seroquel. Advance as tolerated. GI will sign off. Please notify us if new/worsening GI issues. Admission and Anticipated Discharge Date Admission Date: January 21, 2021 Supervising Physician Co-Signing Physician Notes I discussed the case with Monica Dionicio. The patient was unable to be assessed as he was unavailable during afternoon rounds. It appears that he is feeling better from our standpoint, we would recommend erythromycin as noted above for a total of 10 days. Please call with any additional questions or concerns, GI to sign off Subjective Awake, alert, denies any nausea/vomiting today and reports feeling better. Review of Systems Review of Systems: ROS: Gen: Denies weakness, fevers, weight loss Eyes: No eye redness, or pain, no recent vision changes Resp: No SOB, no cough Cardio: No palpitations/irregular beats, no chest pain GI: as per HPI, otherwise (-) : Denies pain on urination Skin: No jaundice, itching or new rashes Physical Exam Constitutional: WD/WN, vitals as above Eyes: PERRL, conjunctivae normal, anicteric sclerae ENMT: external ear and nose normal, oropharynx normal Neck: trachea midline, no thyromegaly Cardiovascular: RRR, no murmur, no edema Gastrointestinal (Abdomen): normal bowel sounds, soft, nontender, no hepatosplenomegaly Musculoskeletal: no cyanosis or clubbing, extremities motor strength 5/5 Skin: no rashes, warm and dry Neurologic: PERRL, EOMI, accommodation nl, no face palsy, no dysarthria Psychiatric: A+Ox3, euthymic affect Results & Data ([facility]) Vital Signs (Past 12 Hours) Vital Signs Temp Pulse Pulse Resp BP Pulse Ox 01/25/21 08:35 112 H 104/65 01/25/21 07:16 36.7 C 102 H 14 105/66 96 01/25/21 01:55 77 149/76 H 98 01/25/21 00:16 82 16 195/83 H 97 Laboratory Results WBC 9, Hb 10, Hct 33, Plts 319, Na 135, K 4.2, Cl103, CO2 26, BUN 25, Cr 4.3.
[2021-01-25] MEDS: carvediloL 25 MG TAB PO SCH ×2 (17:23→17:36)
[2021-01-25] MEDS: METOCLOPRAMIDE HCL 10 MG TABLET PO SCH ×2 (17:23→17:35)
[2021-01-25] MEDS: LOSARTAN POTASSIUM 50 MG TAB PO SCH (17:35)
[2021-01-25] MEDS: amLODIPine BESYLATE 5 MG TAB PO SCH (17:36)
[2021-01-25] MEDS: WARFARIN SOD 5 MG TAB PO SCH (18:21)
--- NOTE | 2021-01-25 18:47 | Nephrology Progress Note ---
Date of Service January 25, 2021 Assessment & Plan (1) ESRD (end stage renal disease) on dialysis: Plan: ESRD with volume overload > recurrent L pleural effusion and some pulmonary vascular congestion -HD today full treatment w/ goal 2L off -continue to probe TW after d/c as OP -He remains above FLOR threshold -cont current BP meds -no fluid limit while on liquid diet and struggling w/ low BG > at d/c should be on 1.2L FR Next dialysis for 01/28 per outpatient routine Admission and Anticipated Discharge Date Admission Date: January 21, 2021 Subjective feels much improved today > had 2L UF at dialysis w/o issue; N gone, more energy, + appetite; pain controlled Review of Systems Review of Systems: All systems reviewed & are unremarkable except as noted in Subjective Physical Exam Constitutional: well developed, + thin, + frail appearing and cooperative; no acute distress Eyes: EOM intact bilaterally ENMT: Ears: no external ear abnormality Nose: no external nose abnormality Mouth: + dry oral mucous membranes Neck: no nuchal rigidity Respiratory: normal respiratory effort Auscultation: + diminished lung sounds L pleurex Cath Cardiovascular: Rate/Rhythm: regular rate and regular rhythm Heart Sounds: + murmur Extremities: + AV fistula (+ t/b); no edema Gastrointestinal (Abdomen): Inspection/Auscultation: normal bowel sounds Percussion/Palpation: abdomen soft; abdomen nontender Musculoskeletal: Extremities: strength 5/5 throughout Skin: no rashes, warm and dry Psychiatric: Orientation: alert and oriented x 3 Speech: normal rate/rhythm/volume of speech Results & Data ([facility]) Vital Signs (Past 12 Hours) Vital Signs Temp Pulse Pulse Resp BP BP BP 01/25/21 17:27 36.8 C 81 18 180/82 H 01/25/21 17:25 36.6 C 80 185/81 H 01/25/21 16:40 78 158/76 H 01/25/21 16:20 78 156/77 H 01/25/21 16:00 79 150/82 H 01/25/21 15:40 79 133/76 01/25/21 15:20 78 143/73 H 01/25/21 15:00 75 142/77 H 01/25/21 14:40 76 133/73 01/25/21 14:20 76 121/62 01/25/21 14:00 78 126/75 08/20/21 13:40 78 135/87 01/25/21 13:19 78 164/87 H 01/25/21 13:12 36.7 C 78 01/25/21 08:35 112 H 104/65 01/25/21 07:16 36.7 C 102 H 14 105/66 Pulse Ox 01/25/21 17:27 97 01/25/21 17:25 01/25/21 16:40 01/25/21 16:20 01/25/21 16:00 01/25/21 15:40 01/25/21 15:20 01/25/21 15:00 01/25/21 14:40 01/25/21 14:20 01/25/21 14:00 01/25/21 13:40 01/25/21 13:19 01/25/21 13:12 01/25/21 08:35 01/25/21 07:16 96 Laboratory Results 01/25/21 05:32 01/25/21 05:32
[2021-01-25 20:14] LABS: Partial Thromboplastin Time 25.9 Seconds (21.0-31.0)
[2021-01-25] MEDS: HEPARIN SODIUM/DEXTROSE 25,000 UNITS/500 ML BAG IV SCH (21:09)
--- NOTE | 2021-01-25 21:18 | Hospitalist Progress Note ---
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 Currently on heparin IV drip as managed by pulmonology however given small size of initial PE I am not overly concerned about cross coverage for anticoagulation if he starts bleeding. Continue warfarin 5mg PO daily (7) ESRD (end stage renal disease): Plan: Appreciate nephrology consult for dialysis management (8) Severe protein-calorie malnutrition: (9) Anxiety: Plan: Continue bupropion, sertraline, seroquel and lorazepam PRN (10) Hypertension: Plan: Continue his routine medications with amlodipine, carvedilol and losartan. Ok to give prior to dialysis, do not hold. Admission and Anticipated Discharge Date Admission Date: January 21, 2021 Subjective Appears more tired today but pleurx is giving him less pain. Nausea at baseline. Review of Systems Review of Systems: All systems reviewed & are unremarkable except as noted in HPI & below Physical Exam Constitutional: well developed and + frail appearing; + not well nourished and no acute distress ENMT: external ear and nose normal, oropharynx normal Neck: trachea midline, no thyromegaly Respiratory: normal respiratory effort Auscultation: + diminished lung sounds (left base aeration improved) Cardiovascular: RRR, no murmur, no edema Gastrointestinal (Abdomen): normal bowel sounds, soft, nontender, no hepatosplenomegaly Musculoskeletal: no cyanosis or clubbing, extremities motor strength 5/5 Skin: no rashes, warm and dry Psychiatric: A+Ox3, euthymic affect Results & Data Results & Data ([place]) Vital Signs (Past 12 Hours) Vital Signs Temp Pulse Pulse Resp BP BP BP 01/25/21 17:27 36.8 C 81 18 180/82 H 01/25/21 17:25 36.6 C 80 185/81 H 01/25/21 16:40 78 158/76 H 01/25/21 16:20 78 156/77 H 01/25/21 16:00 79 150/82 H 01/25/21 15:40 79 133/76 01/25/21 15:20 78 143/73 H 01/25/21 15:00 75 142/77 H 01/25/21 14:40 76 133/73 01/25/21 14:20 76 121/62 01/25/21 14:00 78 126/75 01/25/21 13:40 78 135/87 01/25/21 13:19 78 164/87 H 01/25/21 13:12 36.7 C 78 Pulse Ox 01/25/21 17:27 97 01/25/21 17:25 01/25/21 16:40 01/25/21 16:20 01/25/21 16:00 01/25/21 15:40 01/25/21 15:20 01/25/21 15:00 01/25/21 14:40 01/25/21 14:20 01/25/21 14:00 01/25/21 13:40 01/25/21 13:19 01/25/21 13:12 PG Care Time/CCT Total # of Minutes Spent Total Time Spent with Patient: Total time spent is greater than 50% in coordination of care (as documented) at patient's floor/unit and/or counseling patient: Coding Level of Care Code 05147 Subseq Hosp Care Lvl 2 Diagnoses Cyclic vomiting syndrome R11.15 Gastroparesis K31.84 Pleural effusion J90 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
[2021-01-25] MEDS: QUEtiapine FUMARATE 25 MG TABLET PO SCH (22:27)
[2021-01-25] MEDS: MELATONIN 3 MG TAB PO SCH (22:28)
[2021-01-26] MEDS: Heparin IV Adult Wt-Based Low-Dose *NO* Bolus Protocol IV SCH (03:49)
[2021-01-26 04:04] LABS: INR 1.2 (0.9-1.1); Partial Thromboplastin Ratio 1.2; Partial Thromboplastin Time 32.2 Seconds (21.0-31.0); Prothrombin Time 11.9 Seconds (9.0-12.0)
[2021-01-26] MEDS ORDERED: HEPARIN SOD (PORCINE) 1000 UNIT/ML IV ONE ×2 (04:15→11:13)
[2021-01-26] MEDS ORDERED: HEPARIN IV BOLUS 2,000 UNITS in SYRINGE 0 ML IV SCH (04:30)
[2021-01-26] MEDS: carvediloL 25 MG TAB PO SCH ×2 (08:56→17:42)
[2021-01-26] MEDS: METOCLOPRAMIDE HCL 10 MG TABLET PO SCH ×3 (08:57→16:20)
[2021-01-26] MEDS: buPROPion SR 100 MG TABCR PO SCH (08:58)
[2021-01-26] MEDS: SERTRALINE HCL 50 MG TABLET PO SCH (08:58)
[2021-01-26] MEDS: ATORVASTATIN 10 MG TAB PO SCH (08:58)
[2021-01-26] MEDS: INSULIN GLARGINE SOLOSTAR 100 UNITS/ML 3 ML PEN SQ SCH (09:02)
[2021-01-26] MEDS: INSULIN ASPART 100 UNITS/ML 3 ML PEN SC SCH ×4 (09:03→21:10)
[2021-01-26] MEDS: LOSARTAN POTASSIUM 50 MG TAB PO SCH (10:19)
[2021-01-26] MEDS: amLODIPine BESYLATE 5 MG TAB PO SCH (10:19)
[2021-01-26 10:46] LABS: Partial Thromboplastin Ratio 1.4; Partial Thromboplastin Time 36.3 Seconds (21.0-31.0)
[2021-01-26] MEDS ORDERED: HEPARIN IV BOLUS 2,000 UNITS in SYRINGE 0 ML IV ONE (11:30)
--- NOTE | 2021-01-26 12:16 | Procedure Note ---
Procedure Note Date of Service January 26, 2021 Note The patient's Pleurx catheter dressing was taken down. Sutures were intact and no bleeding was seen. I drained approximately 500 mL of staci-colored pleural fluid from the Pleurx catheter. Patient started having pain and thus the drai nage was discontinued. I placed a new dressing over the Pleurx catheter site. Coding CPT Codes Pulmonary/Thoracic - Pulmonary and Thoracic: 97673 Pleural drainage w/o imaging ([id number]) [facility] [place] Procedure Codes ([place]es) Pulmonary/Thoracic Procedure 3: Pulmonary and Thoracic: 35685 Pleural drainage w/o imaging
--- NOTE | 2021-01-26 12:19 | Pulmonology Progress Note ---
Date of Service January 26, 2021 Assessment & Plan (1) Pleural effusion: Plan: 50-year-old male with a history of ESRD on dialysis presenting to the hospital due to vomiting and shortness of breath. Recurrent left pleural effusion likely secondary to ESRD and diastolic CHF. This has been tapped on 3 separate occasions since November. Continue daily drainage from the left Pleurx catheter site. I am hoping that the Pleurx catheter will assist in pleurodesis. We can reevaluate removing the Pleurx catheter in 6 weeks or so. Continue with pain control utilizing oxycodone. Continue with heparin drip until INR is therapeutic given his pulmonary bolus him in November. Thank you for the consultation. We will continue to follow along with you. (2) Pulmonary embolism: (3) Anticoagulated on warfarin: (4) 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, with long-term current use of insulin: (5) ESRD on dialysis: (6) Anemia of chronic disease: Admission and Anticipated Discharge Date Admission Date: January 21, 2021 Subjective The pain from the Pleurx catheter site is less today. His shortness of breath is improved. The blood pressure is better controlled today. No fevers or chills. Otherwise review of systems is negative. Physical Exam Physical Exam: Constitutional: Patient appears to be of their stated age. Patient is in no apparent distress. Patient is well-developed. Eyes: Pupils are equal round and reactive to light. Conjunctivae are normal. Anicteric sclera. Neck: Trachea is midline. Visual inspection is normal. Respiratory: Diminished lung sounds on the left Cardiovascular: Regular rate and rhythm. No murmurs. No edema. Gastrointestinal: Normal bowel sounds, soft, nontender and nondistended. No hepatosplenomegaly noted. Musculoskeletal: No cyanosis. Patient is able to move all extremities. Strength is 5 out of 5 in the upper and lower extremities. Skin: Left Pleurx incision site appears clean dry and intact. Sutures in place. Neurologic: No obvious focal neurological deficits seen. Psychiatric: Alert and oriented x3 with a euthymic affect. Results & Data Results & Data ([facility]) Vital Signs (Past 12 Hours) Vital Signs Temp Pulse Resp BP Pulse Ox 01/26/21 06:55 98.2 F 77 16 144/76 H 95 Vital signs, labs and imaging reviewed PG Care Time/CCT Total # of Minutes Spent Total Time Spent with Patient: Total time spent is greater than 50% in coordination of care (as documented) at patient's floor/unit and/or counseling patient: Coding Level of Care Code 61985 Subseq Hosp Care Lvl 2 Diagnoses Pleural effusion J90 Pulmonary embolism I26.99 Anticoagulated on warfarin Z79.01 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
[2021-01-26] MEDS: oxyCODONE HCL IR 5 MG TAB (IMMEDIATE RELEASE) PO PRN ×2 (14:29→20:12)
--- NOTE | 2021-01-26 15:16 | Pharmacy Report ---
Pharmacy Glycemic Short Note 2 - Date of Service January 26, 2021 - Glycemic Short BSG Results (Last 24 hours): 01/25/21 01/25/21 01/26/21 17:20 20:57 07:59 POC Glucose 98 136 H 242 H 01/26/21 01/26/21 11:59 11:59 POC Glucose 357 H* 373 H* OUTPATIENT ANTIDIABETIC REGIMEN: * Lantus 12 units SQ QAM * Novolog 5 units TIDM ASSESSMENT: 01/26/21 * Blood sugars controlled yesterday from lunch to dinner [id number] * Fasting blood sugar this AM = 242mg/dl, will add HS Lantus dose * Blood sugar prior to lunch today = 357mg/dl d/t having ice cream prior with no insulin coverage * Continue NovoLog parameters at this time * Consider changing to Regular insulin (from NovoLog) for gastroparesis if blood sugars become elevated post prandial 01/25/21 * Blood sugars acceptable for a very difficult to control type 1 diabetic, ranging 117-220mg/dl over past 24 hours * Consider changing to Regular insulin (from NovoLog) for gastroparesis if blood sugars become elevated post prandial * Fasting BSG 220mg/dl - Consider adding HS dose of basal if AM BSG continues to be elevated tomorrow morning * No changes at this time in insulin orders * Continues daily HD 01/23/21 * 50 y/o M with Type 1 diabetes who is well known to our glycemic service from frequent admissions in the past. Currently admitted for vomiting. * Patient is on chronic hemodialysis. * He was started on Lantus 12 units QAM on admission. Fasting BSG yesterday was 121 mg/dl. Same basal dose was continued today. * His AM BSG today was elevated above 400 today. Called and spoke to nurse. She said he was drinking Powerade and had finished a bottle before this BSG was obtained today AM. Novolog parameters changed based on what has worked for him during his recent admission early this month. * Pre-lunch BSG = 100 mg/dl at goal. * Pt also received hemodialysis this AM. PLAN FOR INPATIENT GLYCEMIC CONTROL: * Basal insulin * Lantus 12 units SQ QAM & 8 units HS * Bolus insulin * NovoLog per scale ACHS or Q6hrs while NPO * Goal Range: Low 110 mg/dL - High 160 mg/dL - for type 1 with gastroparesis * Correction Factor: 40 mg/dL/unit * Nutritional / Prandial insulin per carb ratio of 1 unit per 9 grams CHO consumed PLAN FOR DISCHARGE: * TBD
[2021-01-26] MEDS: WARFARIN SOD 5 MG TAB PO SCH (16:19)
[2021-01-26 18:23] LABS: Partial Thromboplastin Ratio 1.5; Partial Thromboplastin Time 38.5 Seconds (21.0-31.0)
[2021-01-26] MEDS: HEPARIN SODIUM/DEXTROSE 25,000 UNITS/500 ML BAG IV SCH (18:25)
[2021-01-26] MEDS: QUEtiapine FUMARATE 25 MG TABLET PO SCH (20:19)
[2021-01-26] MEDS: MELATONIN 3 MG TAB PO SCH (20:19)
[2021-01-26] MEDS ORDERED: INSULIN GLARGINE SOLOSTAR 100 UNITS/ML 3 ML PEN SQ SCH (21:00)
[2021-01-27 01:03] LABS: Partial Thromboplastin Ratio 1.6; Partial Thromboplastin Time 42.1 Seconds (21.0-31.0)
--- NOTE | 2021-01-27 07:37 | XRay Report ---
XR chest 1V portable CLINICAL HISTORY: Pleural effusion COMPARISON STUDY: Chest radiograph January 25, 2021. FINDINGS: Left pleural catheter remains in place. There is no pneumothorax. The left pleural effusion has significantly decreased in size since chest radiograph of January 25, 2021. There is a small resi dual left pleural effusion with left basilar opacity. Cardiomediastinal silhouette is stable. There i s no evidence for pulmonary edema. IMPRESSION: Left pleural catheter in place. Significant decrease in size of the left pleural effusio n. Small residual left pleural effusion. ACT 112: Negative or not required by law. Electronically signed by: Gabino Cool M.D. 01/27/2021 7:36 AM
[2021-01-27 07:53] LABS: Basophils # (auto) 0.07 K/uL (0-0.2); Basophils % (auto) 0.8 %; Eosinophils # (auto) 1.19 K/uL (0-0.5); Eosinophils % (auto) 12.9 %; Hematocrit (blood only) 33.2 % (42-52); Hemoglobin 10.8 g/dL (14.0-18.0); Immature Granulocytes # (auto) 0.02 K/uL (0.00-0.02); Immature Granulocytes % (auto) 0.2 %; Lymphocytes # (auto) 2.23 K/uL (1.2-3.4); Lymphocytes % (auto) 24.2 %; Mean Corpuscular Hgb Conc 32.5 g/dL (32-36); Mean Corpuscular Volume 98.2 fL (80-100); Mean Platelet Volume 8.9 fL (7.4-10.4); Monocytes # (auto) 0.96 K/uL (0.11-0.59); Monocytes % (auto) 10.4 %; Neutrophils # (auto) 4.73 K/uL (1.4-6.5); Neutrophils % (auto) 51.5 %; Platelet Count 295 K/uL (130-400); RDW Coefficient of Variation 15.4 % (11.5-14.5); RDW Standard Deviation 55.6 fL (36.4-46.3); Red Blood Count 3.38 M/uL (4.7-6.1)
[2021-01-27 08:32] LABS: INR 1.4 (0.9-1.1); Partial Thromboplastin Ratio 1.8; Prothrombin Time 14.2 Seconds (9.0-12.0)
[2021-01-27 08:45] LABS: BUN Creatinine Ratio 7.3 (10-20); Creatinine Clr Calc Pharmacy 13.2 ml/min; Est GFR (African American) 12.5 ml/min; Est GFR (Non-African American) 10.7 ml/min; Potassium 4.3 mmol/L (3.5-5.1)
[2021-01-27 09:03] LABS: Partial Thromboplastin Time 47.2 Seconds (21.0-31.0)
[2021-01-27] MEDS: carvediloL 25 MG TAB PO SCH ×2 (09:21→16:22)
[2021-01-27] MEDS: LOSARTAN POTASSIUM 50 MG TAB PO SCH (09:21)
[2021-01-27] MEDS: ATORVASTATIN 10 MG TAB PO SCH (09:21)
[2021-01-27] MEDS: buPROPion SR 100 MG TABCR PO SCH (09:22)
[2021-01-27] MEDS: amLODIPine BESYLATE 5 MG TAB PO SCH (09:22)
[2021-01-27] MEDS: SERTRALINE HCL 50 MG TABLET PO SCH (09:22)
[2021-01-27] MEDS: METOCLOPRAMIDE HCL 10 MG TABLET PO SCH ×3 (09:22→16:23)
[2021-01-27] MEDS: INSULIN GLARGINE SOLOSTAR 100 UNITS/ML 3 ML PEN SQ SCH (09:23)
[2021-01-27] MEDS: INSULIN ASPART 100 UNITS/ML 3 ML PEN SC SCH ×4 (09:23→21:19)
[2021-01-27] MEDS: oxyCODONE HCL IR 5 MG TAB (IMMEDIATE RELEASE) PO PRN (13:42)
--- NOTE | 2021-01-27 14:14 | Pharmacy Report ---
Pharmacy Glycemic Short Note 2 - Date of Service January 27, 2021 - Glycemic Short BSG Results (Last 24 hours): 01/26/21 01/26/21 01/26/21 17:11 19:55 21:05 Glucose POC Glucose 242 H 236 H 227 H 01/27/21 01/27/21 01/27/21 07:36 07:58 08:16 Glucose 65 L POC Glucose 68 L* 78 01/27/21 12:03 Glucose POC Glucose 125 H OUTPATIENT ANTIDIABETIC REGIMEN: * Lantus 12 units SQ QAM * Novolog 5 units TIDM ASSESSMENT: 01/27 * Pt has received 47 units of insulin over the past 24hrs * 20 units of basal with Lantus * 27 units of bolus with NovoLog * BSGs much better controlled with BID Lantus. However, Pt with LOW AM fasting BSG this AM. Will decrease PM dose of Lantus to prevent LOW tomorrow AM * No changes needed to CF/CR insulin as post-prandial BSGs in range 01/26/21 * Blood sugars controlled yesterday from lunch to dinner [id number]/dl * Fasting blood sugar this AM = 242mg/dl, will add HS Lantus dose * Blood sugar prior to lunch today = 357mg/dl d/t having ice cream prior with no insulin coverage * Continue NovoLog parameters at this time * Consider changing to Regular insulin (from NovoLog) for gastroparesis if blood sugars become elevated post prandial 01/25/21 * Blood sugars acceptable for a very difficult to control type 1 diabetic, ranging 117-220mg/dl over past 24 hours * Consider changing to Regular insulin (from NovoLog) for gastroparesis if blood sugars become elevated post prandial * Fasting BSG 220mg/dl - Consider adding HS dose of basal if AM BSG continues to be elevated tomorrow morning * No changes at this time in insulin orders * Continues daily HD 01/23/21 * 50 y/o M with Type 1 diabetes who is well known to our glycemic service from frequent admissions in the past. Currently admitted for vomiting. * Patient is on chronic hemodialysis. * He was started on Lantus 12 units QAM on admission. Fasting BSG yesterday was 121 mg/dl. Same basal dose was continued today. * His AM BSG today was elevated above 400 today. Called and spoke to nurse. She said he was drinking Powerade and had finished a bottle before this BSG was obtained today AM. Novolog parameters changed based on what has worked for him during his recent admission early this month. * Pre-lunch BSG = 100 mg/dl at goal. * Pt also received hemodialysis this AM. PLAN FOR INPATIENT GLYCEMIC CONTROL: * Basal insulin * Lantus 12 units SQ QAM & decrease PM dose to 6 units HS * Bolus insulin * NovoLog per scale ACHS or Q6hrs while NPO * Goal Range: Low 110 mg/dL - High 160 mg/dL - for type 1 with gastroparesis * Correction Factor: 40 mg/dL/unit * Nutritional / Prandial insulin per carb ratio of 1 unit per 9 grams CHO consumed PLAN FOR DISCHARGE: * TBD
[2021-01-27] MEDS: WARFARIN SOD 5 MG TAB PO SCH (16:23)
--- NOTE | 2021-01-27 16:39 | Pulmonology Progress Note ---
Date of Service January 27, 2021 Assessment & Plan (1) Pleural effusion: Plan: 50-year-old male with a history of ESRD on dialysis presenting to the hospital due to vomiting and shortness of breath. Recurrent left pleural effusion likely secondary to ESRD and diastolic CHF. This has been tapped on 3 separate occasions since November. Continue daily drainage from the left Pleurx catheter site. I am hoping that the Pleurx catheter will assist in pleurodesis. We can reevaluate removing the Pleurx catheter in 6 weeks or so. Pain control per primary team. Chest x-ray demonstrates substantially improved left pleural effusion. Continue with heparin drip until INR is therapeutic given his pulmonary embolism in November. INR today is 1.4. Thank you for the consultation. We will continue to follow along with you. (2) Pulmonary embolism: (3) Anticoagulated on warfarin: (4) 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, with long-term current use of insulin: (5) ESRD on dialysis: (6) Anemia of chronic disease: Admission and Anticipated Discharge Date Admission Date: January 21, 2021 Subjective Patient seen and examined this afternoon. His mother is at bedside. He is feeling very well and denies any significant pain around the Pleurx site. He denies any nausea or vomiting at present. He denies shortness of breath. Review of Systems Review of Systems: All systems reviewed & are unremarkable except as noted in HPI & below Physical Exam Physical Exam: Constitutional: Patient appears to be of their stated age. Patient is in no apparent distress. Patient is well-developed. Eyes: Pupils are equal round and reactive to light. Conjunctivae are normal. Anicteric sclera. Neck: Trachea is midline. Visual inspection is normal. Respiratory: Clear to auscultation bilaterally. Cardiovascular: Regular rate and rhythm. No murmurs. No edema. Gastrointestinal: Normal bowel sounds, soft, nontender and nondistended. No hepatosplenomegaly noted. Musculoskeletal: No cyanosis. Patient is able to move all extremities. Strength is 5 out of 5 in the upper and lower extremities. Skin: Left Pleurx incision site appears clean dry and intact. Sutures in place. Neurologic: No obvious focal neurological deficits seen. Psychiatric: Alert and oriented x3 with a euthymic affect. Results & Data Results & Data ([facility]) Vital Signs (Past 12 Hours) Vital Signs Temp Pulse Resp BP Pulse Ox 08/22/21 14:39 98.1 F 71 16 99/58 L 90 01/27/21 07:02 97.5 F L 81 16 172/82 H 96 PG Care Time/CCT Total # of Minutes Spent Total Time Spent with Patient: Total time spent is greater than 50% in coordination of care (as documented) at patient's floor/unit and/or counseling patient: Coding Level of Care Code 77534 Subseq Hosp Care Lvl 2 Diagnoses Pleural effusion J90 Pulmonary embolism I26.99 Anticoagulated on warfarin Z79.01 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
[2021-01-27] MEDS: HEPARIN SODIUM/DEXTROSE 25,000 UNITS/500 ML BAG IV SCH (19:04)
--- NOTE | 2021-01-27 19:11 | Hospitalist Progress Note ---
Date of Service January 26, 2021 Assessment & Plan (1) Cyclic vomiting syndrome: Plan: Continue metoclopramide (increased dose to 10mg appears to be helping), Compazine PRN Appreciate GI consult, no plan for EGD at this time. Given interactions and improvement in symptoms will avoid erythromycin. Given anxiety increasing his symptoms will continue on Seroquel/sertraline and PRN lorazepam currently but doing better with reduced sertraline dose. (2) Gastroparesis: Plan: as above (3) Pleural effusion: Plan: Worsening shortness of breath per patient Reversal of INR with vitamin K Pleurx drain placed 01/25, 500ml out today. Restarted warfarin 01/24 @ 5mg PO daily while on heparin drip Appreciate pulmonology management (4) 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, with long-term current use of insulin: Plan: Appreciate pharmacy glycemic management (5) Hypoglycemia: Plan: As above Hypoglycemia protocol ordered (6) Pulmonary embolism: Plan: Diagnosed in November at [place]. Currently on heparin IV drip as managed by pulmonology however given small size of initial PE I am not overly concerned about cross coverage for anticoagulation if he starts bleeding. Continue warfarin 5mg PO daily (restarted 01/24) (7) ESRD (end stage renal disease): Plan: Appreciate nephrology dialysis management (8) Severe protein-calorie malnutrition: (9) Anxiety: Plan: Continue bupropion, sertraline (doing better on reduced dose), seroquel and lorazepam PRN (10) Hypertension: Plan: Continue his routine medications with amlodipine, carvedilol and losartan. Ok to give prior to dialysis, do not hold. Admission and Anticipated Discharge Date Admission Date: January 21, 2021 Subjective Nausea appear much improved. Tolerating pleurx much better. INR increasing. Review of Systems Review of Systems: All systems reviewed & are unremarkable except as noted in HPI & below Physical Exam Constitutional: well developed and + frail appearing; + not well nourished and no acute distress Respiratory: normal respiratory effort Cardiovascular: RRR, no murmur, no edema Gastrointestinal (Abdomen): normal bowel sounds, soft, nontender, no hepatosplenomegaly Musculoskeletal: no cyanosis or clubbing, extremities motor strength 5/5 Skin: no rashes, warm and dry Psychiatric: A+Ox3, euthymic affect Results & Data Results & Data ([facility]) Vital Signs (Past 12 Hours) Vital Signs Temp Pulse Resp BP Pulse Ox PG Care Time/CCT Total # of Minutes Spent Total Time Spent with Patient: Total time spent is greater than 50% in coordination of care (as documented) at patient's floor/unit and/or counseling patient: Coding Level of Care Code 14849 Subseq Hosp Care Lvl 1 Diagnoses Cyclic vomiting syndrome R11.15 Gastroparesis K31.84 Pleural effusion J90 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
--- NOTE | 2021-01-27 20:54 | Hospitalist Progress Note ---
Date of Service January 27, 2021 Assessment & Plan (1) Cyclic vomiting syndrome: Plan: Continue metoclopramide (increased dose to 10mg appears to be helping), Compazine PRN. Appreciate GI consult, no plan for EGD at this time. Given interactions and improvement in symptoms will avoid erythromycin. Given anxiety increasing his symptoms will continue on Seroquel/sertraline and PRN lorazepam currently but doing better with reduced sertraline dose. (2) Gastroparesis: Plan: as above. (3) Pleural effusion: Plan: Worsening shortness of breath on admission. Pleurx drain placed 01/25, 500ml out today. Restarted warfarin 01/24 @ 5mg PO daily while on heparin drip. Appreciate pulmonology management. 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 (5) Hypoglycemia: Plan: As above. Hypoglycemia protocol ordered. (6) Pulmonary embolism: Plan: Diagnosed in November at [place]. Currently on heparin IV drip as managed by pulmonology however given small size of initial PE I am not overly concerned about cross coverage for anticoagulation if he starts bleeding. Continue warfarin 5mg PO daily (restarted 01/24). (7) ESRD (end stage renal disease): Plan: Appreciate nephrology dialysis management. (8) Severe protein-calorie malnutrition: (9) Anxiety: Plan: Continue bupropion, sertraline (doing better on reduced dose), seroquel and lorazepam PRN. (10) Hypertension: Plan: Continue his routine medications with amlodipine, carvedilol and losartan. Ok to give prior to dialysis, do not hold. Plan: VTE prophylaxis - bridging heparin IV drip while INR increases with warfarin. Disposition - continued stay on med surg while on heparin drip Admission and Anticipated Discharge Date Admission Date: January 21, 2021 Subjective Feels at baseline. Nausea much improved since admission. No fever, chills or cough. Shortness of breath much improved. Review of Systems Review of Systems: All systems reviewed & are unremarkable except as noted in HPI & below Physical Exam Constitutional: well developed and + frail appearing; + not well nourished and no acute distress Respiratory: normal respiratory effort Musculoskeletal: no cyanosis or clubbing, extremities motor strength 5/5 Skin: no rashes, warm and dry Psychiatric: A+Ox3, euthymic affect Results & Data Results & Data ([facility]) Vital Signs (Past 12 Hours) Vital Signs Temp Pulse Resp BP Pulse Ox 01/27/21 14:39 36.7 C 71 16 99/58 L 90 PG Care Time/CCT Total # of Minutes Spent Total Time Spent with Patient: Total time spent is greater than 50% in coordination of care (as documented) at patient's floor/unit and/or counseling patient: Coding Level of Care Code 13791 Subseq Hosp Care Lvl 1 Diagnoses Cyclic vomiting syndrome R11.15 Gastroparesis K31.84 Pleural effusion J90 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
[2021-01-27] MEDS ORDERED: INSULIN GLARGINE SOLOSTAR 100 UNITS/ML 3 ML PEN SQ SCH (21:00)
[2021-01-27] MEDS: QUEtiapine FUMARATE 25 MG TABLET PO SCH (21:18)
[2021-01-27] MEDS: MELATONIN 3 MG TAB PO SCH (21:18)
[2021-01-28] MEDS ORDERED: SODIUM CHLORIDE 0.9% 1000ML 1,000 ML IV PRN (07:00)
[2021-01-28] MEDS: HEPARIN SODIUM/DEXTROSE 25,000 UNITS/500 ML BAG IV SCH ×2 (07:09→19:18)
[2021-01-28 07:37] LABS: INR 1.8 (0.9-1.1); Partial Thromboplastin Ratio 2.2; Partial Thromboplastin Time 56.8 Seconds (21.0-31.0); Prothrombin Time 17.6 Seconds (9.0-12.0)
[2021-01-28 07:42] LABS: BUN Creatinine Ratio 8.3 (10-20); Calcium 7.4 mg/dl (8.5-10.1); Creatinine Clr Calc Pharmacy 10.3 ml/min; Est GFR (African American) 9.2 ml/min; Potassium 5.2 mmol/L (3.5-5.1)
[2021-01-28] MEDS: INSULIN ASPART 100 UNITS/ML 3 ML PEN SC SCH ×4 (08:34→21:09)
[2021-01-28] MEDS: INSULIN GLARGINE SOLOSTAR 100 UNITS/ML 3 ML PEN SQ SCH (08:35)
[2021-01-28] MEDS: METOCLOPRAMIDE HCL 10 MG TABLET PO SCH ×3 (08:41→17:04)
--- NOTE | 2021-01-28 09:08 | Hospitalist Progress Note ---
Date of Service January 28, 2021 Assessment & Plan (1) Cyclic vomiting syndrome: Plan: Resolved Continue metoclopramide (increased dose to 10mg appears to be helping), Compazine PRN. 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 Given interactions and improvement in symptoms will avoid erythromycin. Given anxiety increasing his symptoms will continue on Seroquel/sertraline and PRN lorazepam currently but doing better with reduced sertraline dose. (2) Gastroparesis: Plan: as above. (3) Pleural effusion: Plan: Worsening shortness of breath on admission. Pleurx drain placed 01/25, 500ml out today. Restarted warfarin 01/24 @ 5mg PO daily while on heparin drip. Appreciate pulmonology management. 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 (5) Hypoglycemia: Plan: As above. Hypoglycemia protocol ordered. (6) Pulmonary embolism: Plan: Diagnosed in November at [place]. Currently on heparin IV drip as managed by pulmonology however given small size of initial PE I am not overly concerned about cross coverage for anticoagulation if he starts bleeding. Continue warfarin 5mg PO daily (restarted 01/24). inr is still subtherapeutic, but close (7) ESRD (end stage renal disease): Plan: Appreciate nephrology dialysis management. (8) Severe protein-calorie malnutrition: (9) Anxiety: Plan: Continues on bupropion, sertraline (doing better on reduced dose), seroquel and lorazepam PRN. (10) Hypertension: Plan: Continue amlodipine, carvedilol and losartan. Plan: VTE prophylaxis - bridging heparin IV drip while INR increases with warfarin. Disposition - continued stay on med surg while on heparin drip Admission and Anticipated Discharge Date Admission Date: January 21, 2021 Subjective pt feels improved will have home with pleurex cath, family instructed at bedside on its use by Dr Mendez Review of Systems Review of Systems: Mild distress and fatigue no headache, no visual changes no speech or swallowing issues no chest pain, pressure or palpitations no shortness of breath, cough or wheezes no abdominal pain, nausea or vomiting has resolved, diarrhea or constipation no dysuria, hematuria or frequency no focal joint pain or swelling no back pain, CVA tenderness or radicular pain no bruising, bleeding or rashes no focal signs of weakness or numbness or altered sensation no complaints of anxiety or depression.. Physical Exam Physical Exam: The patient appeared well nourished and normally developed. Vital signs as documented. Head exam is normocephalic atraumatic Neck is without JVD, thyromegaly, or carotid bruits. Lungs are clear to auscultation, with some decrease at the left bases Cardiac exam, Rhythm is regular.. No murmurs, rubs or gallops. Abdominal exam reveals normal bowel sounds, soft non tender, no masses Extremities are nonedematous and both pedal pulses are present Neurologic exam is alert and oriented, no focal loss of strength or sensation Skin is without bruises or rashes Psychologically is without concerns for anxiety or depression Results & Data Results & Data ([facility]) Vital Signs (Past 12 Hours) Vital Signs Temp Pulse Resp BP Pulse Ox 01/28/21 07:04 98.1 F 77 16 136/78 94 01/27/21 22:11 98.1 F 88 16 98/64 L 95 PG Care Time/CCT Total # of Minutes Spent Total Time Spent with Patient: Total time spent is greater than 50% in coordination of care (as documented) at patient's floor/unit and/or counseling patient: Coding Level of Care Code 69837 Subseq Hosp Care Lvl 2 Diagnoses Cyclic vomiting syndrome R11.15 Gastroparesis K31.84 Pleural effusion J90 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
--- NOTE | 2021-01-28 09:19 | Pulmonology Progress Note ---
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 --Left-sided pleural effusion Likely underlying etiology is end-stage renal disease Multiple thoracentesis in the past S/p Pleurx catheter placement by Dr. Lazo --Recent history of PE On warfarin --End-stage renal disease Plan as per nephrology Plan: We will do drainage from the Pleurx catheter today. Patient would like his father to be in the room as well so that I can show it to them how it should be done. No further recommendation from pulmonary perspective. Please follow-up with Dr. Lazo as an outpatient Would recommend to do drainage every third day from the Pleurx catheter and keep a log of the amount of drainage Would recommend social work to make sure patient has enough bottles at home before he is discharged home. Please note the above document was generated using voice recognition software. It may contain grammatical, syntax or spelling errors.Any formal questions or concerns about the content, text or information contained within the body of this dictation should be directly addressed to the provider for clarification. Admission and Anticipated Discharge Date Admission Date: January 21, 2021 Subjective Patient seen and examined at bedside. No acute distress, no adverse events overnight. He states he is feeling better. Denies any chest pain, no shortness of breath. Fair appetite. No headache, no dizziness. Review of Systems Review of Systems: All systems reviewed & are unremarkable except as noted in Subjective Physical Exam Physical Exam: Constitutional: No acute distress HEENT: EOMI, PERRLA Respiratory system: Decreased air entry on the left side, minimal crackles bilateral lower lobes, no wheeze, no rhonchi CVS: S1-S2 positive, no murmurs or gallops Abdomen: Soft, nontender, nondistended, positive bowel sounds x4 Extremities: +2 pulses bilaterally radialis/ dorsalis pedis, no cyanosis, no edema Neuro: Awake alert oriented x3 Psych: Normal mood and affect G/U: No Lee Skin: no rashes, warm and dry Lymphatic: no cervical or axillary lymphadenopathy Results & Data Results & Data ([facility]) Vital Signs (Past 12 Hours) Vital Signs Temp Pulse Resp BP Pulse Ox 01/28/21 07:04 36.7 C 77 16 136/78 94 01/27/21 22:11 36.7 C 88 16 98/64 L 95 01/27/21 07:36 01/28/21 05:35 PG Care Time/CCT Total # of Minutes Spent Total Time Spent with Patient: Total time spent is greater than 50% in coordination of care (as documented) at patient's floor/unit and/or counseling patient: Coding Level of Care Code 47311 Subseq Hosp Care Lvl 3 Diagnoses Pleural effusion J90 Pulmonary embolism I26.99 Anticoagulated on warfarin Z79.01 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
--- NOTE | 2021-01-28 10:31 | Dialysis Progress Note ---
Date of Service January 28, 2021 Assessment & Plan (1) ESRD (end stage renal disease) on dialysis: Plan: ESRD with volume overload > recurrent L pleural effusion and some pulmonary vascular congestion -HD today full treatment w/ goal 1.5 L off -continue to probe TW after d/c as OP -He remains above FLOR threshold -cont current BP meds -no fluid limit while on liquid diet and struggling w/ low BG > at d/c should be on 1.2L FR Next dialysis Thursday per outpatient routine Admission and Anticipated Discharge Date Admission Date: January 21, 2021 Subjective Seen in follow-up for ESRD. Patient was seen and examined while on dialysis. Patient is tolerating dialysis well. No vomiting or nausea. Review of Systems Review of Systems: All other systems were reviewed and negative except as noted in HPI Physical Exam Physical Exam: General exam: Appears comfortable, no acute distress HEENT: Pupils are equal and reactive to light Neck: No JVD, neck is supple trachea is midline Respiratory system: Clear breath sounds bilaterally. Gastrointestinal: Abdomen is soft, non distended, non tender, bowel sounds are present CVS: Regular rate and rhythm. No murmurs, rubs or gallops Musculoskeletal: No joint or muscle tenderness Extremities: Non tender, no edema, peripheral pulses are present Neuro: Oriented, no tremors, no focal neurological deficits Skin: No rashes Results & Data ([facility]) Vital Signs (Past 12 Hours) Vital Signs Temp Pulse Resp BP Pulse Ox 01/28/21 07:04 36.7 C 77 16 136/78 94 Laboratory Results 01/28/21 05:35
[2021-01-28] MEDS: carvediloL 25 MG TAB PO SCH ×2 (13:24→17:03)
[2021-01-28] MEDS: amLODIPine BESYLATE 5 MG TAB PO SCH (13:24)
[2021-01-28] MEDS: ATORVASTATIN 10 MG TAB PO SCH (13:25)
[2021-01-28] MEDS: SERTRALINE HCL 50 MG TABLET PO SCH (13:25)
[2021-01-28] MEDS: LOSARTAN POTASSIUM 50 MG TAB PO SCH (13:25)
[2021-01-28] MEDS: buPROPion SR 100 MG TABCR PO SCH (13:25)
--- NOTE | 2021-01-28 17:02 | Procedure Note ---
Procedure Note Date of Service January 28, 2021 Note 01/18/2021: Procedure: Therapeutic pleural drainage from the Pleurx catheter Supervisor [employer]: Dr. Anna Mendez Indication: Pleural effusion Consent: Verbally obtained Anesthesia: None Procedure: Patient already has Pleurx catheter placed in the left side After removing the dressing under aseptic measures 550 mL of serosanguineous fluid was aspirated. Patient complained of chest tightness this reason it was stopped The site was dressed and dressing placed on top of it. I showed and explained to patient as well as patient's how they may should be done. Complications: None Blood loss: None Coding CPT Codes Pulmonary/Thoracic - Pulmonary and Thoracic: 50511 Pleural drainage w/o imaging ([id number]) [facility] Procedure Codes (Charges) Pulmonary/Thoracic Procedure 1: Pulmonary and Thoracic: 43994 Pleural drainage w/o imaging
[2021-01-28] MEDS: WARFARIN SOD 5 MG TAB PO SCH (17:03)
[2021-01-28] MEDS ORDERED: INSULIN GLARGINE SOLOSTAR 100 UNITS/ML 3 ML PEN SQ SCH (21:00)
[2021-01-28] MEDS: QUEtiapine FUMARATE 25 MG TABLET PO SCH (21:05)
[2021-01-28] MEDS: MELATONIN 3 MG TAB PO SCH (21:06)
[2021-01-29 06:34] LABS: Basophils # (auto) 0.04 K/uL (0-0.2); Basophils % (auto) 0.5 %; Eosinophils # (auto) 0.65 K/uL (0-0.5); Eosinophils % (auto) 8.7 %; Hematocrit (blood only) 29.6 % (42-52); Hemoglobin 9.5 g/dL (14.0-18.0); Immature Granulocytes # (auto) 0.02 K/uL (0.00-0.02); Immature Granulocytes % (auto) 0.3 %; Lymphocytes # (auto) 1.87 K/uL (1.2-3.4); Lymphocytes % (auto) 24.9 %; Mean Corpuscular Hemoglobin 31.4 pg (25-34); Mean Corpuscular Hgb Conc 32.1 g/dL (32-36); Mean Corpuscular Volume 97.7 fL (80-100); Mean Platelet Volume 9.1 fL (7.4-10.4); Monocytes # (auto) 0.88 K/uL (0.11-0.59); Monocytes % (auto) 11.7 %; Neutrophils # (auto) 4.05 K/uL (1.4-6.5); Neutrophils % (auto) 53.9 %; Platelet Count 268 K/uL (130-400); RDW Coefficient of Variation 15.5 % (11.5-14.5); RDW Standard Deviation 55.2 fL (36.4-46.3); Red Blood Count 3.03 M/uL (4.7-6.1); White Blood Count 7.51 K/uL (4.8-10.8)
[2021-01-29 06:44] LABS: INR 2.1 (0.9-1.1); Partial Thromboplastin Ratio 2.3; Prothrombin Time 20.4 Seconds (9.0-12.0)
[2021-01-29 06:48] LABS: Partial Thromboplastin Time 60.1 Seconds (21.0-31.0)
[2021-01-29] MEDS: ATORVASTATIN 10 MG TAB PO SCH (09:08)
[2021-01-29] MEDS: buPROPion SR 100 MG TABCR PO SCH (09:08)
[2021-01-29] MEDS: LOSARTAN POTASSIUM 50 MG TAB PO SCH (09:08)
[2021-01-29] MEDS: amLODIPine BESYLATE 5 MG TAB PO SCH (09:08)
[2021-01-29] MEDS: SERTRALINE HCL 50 MG TABLET PO SCH (09:08)
[2021-01-29] MEDS: METOCLOPRAMIDE HCL 10 MG TABLET PO SCH ×2 (09:08→12:14)
[2021-01-29] MEDS: carvediloL 25 MG TAB PO SCH (09:09)
[2021-01-29] MEDS: INSULIN GLARGINE SOLOSTAR 100 UNITS/ML 3 ML PEN SQ SCH (09:09)
[2021-01-29] MEDS: INSULIN ASPART 100 UNITS/ML 3 ML PEN SC SCH ×2 (09:11→12:15)
--- NOTE | 2021-01-29 18:15 | Discharge Summary ---
Date of Service January 29, 2021 Admission HPI Per Admitting Provider This is a 50-year-old male with past medical history of cyclical vomiting/gastroparesis, end-stage renal disease on hemodialysis that presents today with nausea vomiting. Patient is a very poor historian. Patient has had longstanding issues with cyclic vomiting. At home, he typically uses Compazine and Zofran with variable relief. Patient has been in the hospital multiple times, most recently discharged on 01/07 after admission for N/V and drainage of L pleural effusion. Patient received hemodialysis today without issue, but noted worsening nausea afterward. On evaluation, the patient is sleepy and difficult to engage.He notes constant SOB at rest, worse with exertion. He denies CP at rest or with exertion. He denies any abdominal pain. Principal Diagnosis cyclic vomiting syndrome diabetic gastroparesis recurrent pleural effusion s/p pleurex cath placement esrd requiring dialysis Discharge Exam The patient appeared well Vital signs as documented. Lungs are clear to auscultation except left base Pleurx in left chest Cardiac exam, Rhythm is regular.. No murmurs, rubs or gallops. Abdominal exam reveals normal bowel sounds, soft non tender, no masses Extremities are nonedematous and both pedal pulses are normal. Neurologic exam is alert and oriented, no focal loss of strength or sensation Skin is without bruises or rashes Psychologically is without concerns for anxiety or depression. Discharge Data Allergies Allergy/AdvReac Type Severity Reaction Status Date / Time shellfish derived Allergy Severe anaphylaxis Verified 01/21/21 21:15 codeine Allergy Intermediate Hives Verified 01/21/21 21:15 promethazine Allergy Intermediate itchy/hives Verified 01/21/21 21:15 Consultations 01/21/21 20:46 ED Decision to Admit Stat 01/21/21 22:06 Consult Nephrology Routine 01/21/21 23:36 Consult Gastroenterology Routine Consult Pulmonology Routine Ordered Studies 01/24/21 10:13 US point of care ultrasound Stat Hospital Course (1) Cyclic vomiting syndrome: Resolved Continue metoclopramide discussed the increased dose with Jorge Alberto. 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 Given anxiety increasing his symptoms will continue on Seroquel/sertraline and PRN lorazepam currently but senior care may do better with reduced sertraline dose. (2) Gastroparesis: as above. (3) Pleural effusion: Worsening shortness of breath on admission. Pleurx drain placed 01/25, 550ml out the day before discharge Restarted warfarin 01/24 @ 5mg PO daily Appreciate pulmonology management will continue to follow up with them . 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 (5) Hypoglycemia: resolved (6) Pulmonary embolism: Diagnosed in November at [place]. Currently on heparin IV drip as managed by pulmonology however given small size of initial PE I am not overly concerned about cross coverage for anticoagulation if he starts bleeding. Continue warfarin 5mg PO daily (restarted 01/24). inr is still therapeutic, will follow with coagulation clinic on thursday02/01/21 resume home dose (7) ESRD (end stage renal disease): Appreciate nephrology dialysis management. (8) Severe protein-calorie malnutrition: (9) Anxiety: Continues on bupropion, sertraline (doing better on reduced dose), seroquel and lorazepam PRN. (10) Hypertension: Continue amlodipine, carvedilol and losartan. Total Time Total Time Spent Total Time Spent (In Minutes): It required greater than 30 minutes to prepare this patient for discharge Discharge Plan Discharge Items Patient Disposition: Home - Home Health Services Reason For Visit: VOMITING Discharge Diagnosis: cyclic vomiting syndrome recurrent pleural effusion ESRD, on chornic dialysis Activity: Per Instructions section Activity Comment: slowly increase activity Non-emergency contact: Primary Care Provider and Solar [employer] Installer Call non-emergency contact if: your symptoms worsen and you have a fever Follow-up/Referrals: Abbi Ames MD [Primary Care Provider] - 02/07/21 9:20 am Diet: Carb Consistent or DM2 and Dialysis Renal Addtl Attending Provider Instructions: your metoclopramide was increased during your hospital stay, it will be reduced at discharge if you find you need the higher dose please discuss with your primary care or medical imaging specialist to change your home Rx please contact your primary care provider to update on your hospital stay continue to follow up with your dialysis treatments have a follow up with the lung specialists please have your blood thinner Coumadin checked later this week at your usual location Medication Instructions: * Warfarin is a medicine prescribed to prevent blood clots * Warfarin will thin your blood and help prevent new clots * Take your medications exactly as directed * Never skip a dose. Never take a double dose. If you miss a dose, take it as soon as you remember * It is important for your doctor to monitor your prothrombin time (PT). This is a lab test * Keep your appointment for lab tests Risk of Adverse Drug Reactions and Interactions: * Warfarin increases your risk of bleeding * The food you eat and other medications you take can affect how Warfarin works in your body * Ask your doctor about daily aspirin therapy * It is very important to talk with your doctor about all of the other medicines, antibiotics, vitamins or herbal products that you are taking * All of your medication must be approved by your doctor, including new medicines, as well as medicines you have taken before you started taking Warfarin Diet: * In order for Warfarin to work properly, it is important to keep your intake of Vitamin K as consistent as possible * You should avoid any sudden change in Vitamin K intake * Report any significant changes in your diet or weight to your doctor Call your Primary Care doctor if you experience any of the following: * Swelling or Pain in your leg * Sudden, continuous pain deep in a muscle * Pain that worsens when you are active or when you stand still for a long time * Chest Pain * Sudden Shortness of Breath * Rapid or pounding heart beat * Fainting * Dizziness * Cough with blood or bloody sputum * Sweating more than normal * Bruises * Heavy or uncontrolled bleeding * Blood in your urine, stool or vomit * Black or tarry stools Caring for Your Self at Home: * Avoid sitting, standing or lying down for long periods without moving your legs and feet * When traveling by car, stop to get out and move around at least once every 3 hours * On long airplane, train or bus rides, get up and move around when possible * If you can't get up, wiggle your toes and tighten your calves to keep your blood moving Follow Up: It is important for you to keep your follow up appointments with your medical provider. Pending Studies at Discharge: No Stand-Alone Forms: [employer], Smoking Cessation Medications and DC Order Prescriptions: Continued Basaglar KwikPen U-100 Insulin 100 unit/mL (3 mL) insulin pen 12 unit SUBCUT QAM RF: 0 bupropion HCl 100 mg tablet sustained-release 12 hr 100 mg PO QAM RF: 0 acetaminophen 325 mg capsule 650 mg PO Q4H PRN (Reason: Pain (Scale Score 1-3)) RF: 0 amlodipine 5 mg tablet 5 mg PO DAILY Qty: 90 RF: 3 ondansetron HCl [Zofran] 4 mg tablet 4 mg PO Q4H PRN (Reason: NAUSEA/VOMITING) RF: 0 cholecalciferol (vitamin D3) [Vitamin D3] 50 mcg (2,000 unit) capsule 50 mcg PO DAILY Qty: 30 RF: 3 lorazepam 0.5 mg tablet 0.5 mg PO Q12 PRN (Reason: Anxiety) Qty: 60 RF: 0 carvedilol 25 mg tablet 25 mg PO BIDM RF: 0 melatonin 3 mg tablet 3 mg PO HS RF: 0 sertraline 100 mg tablet 100 mg PO QAM Qty: 90 RF: 0 insulin aspart U-100 [Novolog Flexpen U-100 Insulin] 100 unit/mL (3 mL) insulin pen 5 unit SUBCUT TIDM PRN (Reason: sliding scale) RF: 0 pantoprazole 40 mg tablet,delayed release (DR/EC) 40 mg PO BID RF: 0 atorvastatin 10 mg Tablet 10 mg PO DAILY RF: 0 hydrocortisone 1 % Cream 1 applic TOPICAL Q6H PRN (Reason: Itching) RF: 0 bisacodyl 10 mg Suppository 10 mg [place] DAILY PRN (Reason: Constipation) RF: 0 B complex with C 20-folic acid 1 mg Capsule 1 cap PO DAILY RF: 0 polyethylene glycol 3350 [Miralax] 17 gram/dose Powder 17 g PO QDL PRN (Reason: Constipation) RF: 0 losartan 100 mg Tablet 100 mg PO DAILY RF: 0 darbepoetin jessee-albumin 60 mcg/0.3 mL Syringe 60 mcg WK RF: 0 quetiapine [Seroquel] 25 mg tablet 25 mg PO HS Qty: 30 RF: 0 metoclopramide HCl 5 mg tablet 5 mg PO AC PRN (Reason: nausea and vomiting) Qty: 30 RF: 0 warfarin 5 mg Tablet 5 mg PO 3XWK RF: 0 warfarin 5 mg Tablet 2.5 mg PO 4XWK RF: 0 Discharge Orders: Discharge Order (Routine); Ordered 01/29/21 Ordered By: Dionicio Haro Admission Data Admit Date/Time: 01/21/21 21:51 Attending Provider: Dionicio Haro Admit Provider: Rula Walker Primary Care Provider: Abbi Ames V. 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
--- NOTE | 2021-04-08 13:00 | Coding Query ---
CODING QUERY To promote full compliance with coding requirements relating to patient care, provider participation is requested in all cases of patient care representative uncertainty. Please assist us with the question(s) below: Coding Question(s): Pt admitted with vomiting and shortness of breath. Admitted after dialysis - with worsening nausea. CXR in the ED revealed "layering" left pleural effusion with left basilar consolidation. * Pulmonary Consult 01/22 " suspect current effusion d/t ESRD & HFREF". 01/28 Hospitalist note stated effusion likely d/t ESRD . Pt had a pleurax catheter placed and thoracentesis. Please document, if known or suspected, the etiology of the presenting pleural effusion. Thanks for your help! Michael Dawson [facility] Physician's Response(s): esrd Principal Diagnosis: "that condition established after study, to be chiefly responsible for occasioning the admission of the patient to the hospital for care." Co-Existing Principal Diagnosis: "when two or more diagnoses equally meet the criteria for principal diagnosis as determined by the circumstances of admission, diagnostic work up, and/or therapy provided, and the Alphabetic Index, Tabular List, or another coding guideline does not provide sequencing direction, any one of the diagnoses may be sequenced first." "When the physician has documented what appears to be a current diagnosis in the body of the record, but has not included the diagnosis in the final diagnostic statement, the physician should be asked whether the diagnosis should be added." (Source Coding [facility] 2 QTR90. p3-4) NICOL[place]S
--- NOTE | 2021-04-09 07:06 | Coding Query ---
CONGESTIVE HEART FAILURE A diagnosis of Congestive Heart Failure is documented in the patient's medical record. To accurately code this diagnosis and to compare patient severity, we ask that you specify the type of heart failure by placing an X within the parenthesis (x). 01/27 Pulmonary progress note(s) documented recurrent pleural effusion secondary to ESRD & Diastolic Heart Failure. Seeking to clarify if patient also has /was treated for CHF. Please check approrpriate choice below & thank you. Michael Dawson, REGGIE CCS the heart failure comment was by the coding compliance specialist and I do not support his diagnosis MTDD
== END 2021-01-29 12:40 | disposition home health service (06) | DRG 682 ==
LOC: ED 18:09 → 3E 21:51 → SUATTDRO 21:51 → 3E 23:05

== ENCOUNTER 2021-02-14 07:40 | Inpatient (IN) ==
[2021-02-14] MEDS ORDERED: hydrALAZINE HCL 20 MG/ML VIAL IV ONE ×2 (08:12→10:36)
[2021-02-14] MEDS ORDERED: METOCLOPRAMIDE HCL INJ 5 MG/ML 2 ML VIAL IV STA (08:12)
--- NOTE | 2021-02-14 08:24 | Emergency Department Note ---
Impression & Plan Nausea & vomiting, ESRD (end stage renal disease), Gastroparesis, Hypertensive urgency ED Provider Note Provider: Calderon Griffin MD DATE OF SERVICE: 02/14/2021 CHIEF COMPLAINT: Elevated blood pressure, nausea and vomiting HISTORY OF PRESENT ILLNESS: Patient is a 50-year-old gentleman history of cyclic vomiting syndrome, type 1 diabetes with diabetic neuropathy and end-stage renal disease on dialysis, CAD, gastroparesis currently anticoagulated on Coumadin presenting here via ambulance today from home reporting nausea and vomiting overnight with high blood pressure. Patient was seen here in the ER yesterday for similar. States he received treatment and was feeling improved. Patient states he completed a course of dialysis yesterday. States he is unable to sleep all night or keep anything down. Denies any abdominal pain or chest pain. Denies trouble breathing. Patient states he tried some Zofran and Compazine without improvement of the situation. Patient has not been able to take his morning medications this morning. No trauma or falls reported. Patient states he does feel fatigued. REVIEW OF SYSTEMS: A total of 10 review of systems was obtained and negative except as stated above in the HPI. PAST MEDICAL HISTORY: As noted above MEDICATIONS: Reviewed home medication list SOCIAL HISTORY: Lives at home with parents PHYSICAL EXAM: GENERAL: alert and oriented in no acute distress on stretcher fatigued in appearance Head: normocephalic and atraumatic EYES: No injection, discharge or icterus. NECK: Trachea midline. ENT: Mucous membranes pink and moist. LUNGS: Airway patent. No retractions. Breath sounds clear with good air entry bilaterally. HEART: Regular rate and rhythm. No chest wall tenderness with a left lateral chest wall Pleurx drain catheter in place bandaged ABDOMEN: Soft and non-tender, without guarding or rebound. SKIN: Acyanotic, warm, dry, without rashes EXTREMITIES: Without swelling, tenderness or deformity NEUROLOGICAL: No focal deficits. No aphasia. No facial droop or slurred speech. EK bpm normal sinus rhythm. No PVC or PAC. No acute ST segment elevation or depression. QTC 485. CONTINUOUS CARDIAC MONITORING: was ordered and showed a heart rate of 80s-90s bpm in normal sinus rhythm Patient's laboratory studies and imaging reviewed. Differential includes gastrointestinal, infection, dehydration, metabolic abnor mality, hypo/hyperglycemia, electrolyte disturbance, anemia, hypoxia, cardiac sources, intracerebral event, toxicologic, neurologic, as well as other pathologies. IMPRESSION/MEDICAL DECISION MAKING: Review of records and labs from yesterday. Patient with a difficult history of type 1 diabetes now with end-stage renal disease and cyclic vomiting. Benign abdomen on exam. Repeat blood work was sent today. Given some Reglan to see if this did help with the symptoms here in addition to IV fluid. Given a small bite of hydralazine as this works to control his blood pressure which is elevated here. Low suspicion at this time for acute CVA. EKG and troponin were sent although denies any chest pain symptomatologies. Patient somewhat difficult for IV access of slight delay with this. Received some hydralazine with mild improvement of blood pressure. Blood work here without significant leukocytosis continued anemia. INR comes back at 1.8. No severe electrolyte abnormalities noted although patient has ESRD. Troponin today is elevated but downtrending from yesterday. No evidence of acute hepatitis or pancreatitis based on serologies. Covid test was negative yesterday from testing and record review by myself. Patient's not it did improve some while here. Patient has a palliative medicine consult in the outpatient setting scheduled at 1 PM according to his father who later arrives. Chest x-ray appears to show no significant effusion accumulation and father states they have been draining his left Pleurx catheter every other day at home without significant issue. Patient on reassessment still with nausea given additional Haldol which worked better for him yesterday. Evidently after getting home yesterday for an hour felt fine and then again with nausea and vomiting. Again unable to tolerate oral intake at home or his home medications predispose to be on multiple oral medications including Coumadin and again again is a type I diabetic. While is not in acute DKA at this point, do have concerns given his multiple medical morbidities given his difficulty with oral intake for his ability to continue care at home. He significantly hypertensive after several doses of hydralazine. Given a dose of labetalol. Discussed with both him and his father at bedside options at this point. Discussed that specialist follow-up as scheduled in several weeks in [place] is likely critical to try to further treat his underlying GI issues however given their concerns and his difficulty with oral intake will discuss observation with the hospitalist. DIAGNOSIS: Nausea and vomiting, hypertensive urgency DISPOSITION: Hospitalist will evaluate Past Med/Surg History Medical History Anemia Anemia of chronic disease Anxiety AV fistula left arm Bilateral calf pain CAD (coronary artery disease) mild, non-obstructive CAD per 10/2018 cardiac cath> [facility] Depression Diabetes Diabetic retinopathy Dialysis patient Dialysis patient DKA (diabetic ketoacidoses) Esophagitis ESRD (end stage renal disease) M,W,F (Follows with Dr. Lor Guadalupe; [facility]) ESRD (end stage renal disease) on dialysis ESRD on dialysis Gastroparesis GERD (gastroesophageal reflux disease) Hematemesis Hypertension Hypertension Intractable vomiting with nausea Kidney stones Lumbar compression fracture Lumbar radiculopathy Nausea & vomiting Peripheral neuropathy Pleural effusion Pleural effusion Retinopathy due to secondary diabetes Severe protein-calorie malnutrition Vomiting Surgical History H/O shoulder surgery RIGHT History of appendectomy History of cardiac cath 10/2018= no stents, no obstructive disease (at [facility]) History of cataract surgery History of esophagogastroduodenoscopy (EGD) (~03/08/20) History of hip surgery left HIP ARTHROSCOPY History of lithotripsy History of open reduction and internal fixation (ORIF) procedure right hip Nausea and vomiting after administration of anesthetic agent Permanent central venous catheter in place Permacath has been removed S/P arteriovenous (AV) fistula creation Family History Grandfather Myocardial infarction Grandfather (Maternal) Family history of diabetes mellitus Uncle Myocardial infarction Other No family history of adverse response to anesthesia Denies family history of Colon cancer Ovarian cancer Prostate cancer Breast cancer Social History Smoking Status: Never smoker Second Hand Exposure: No; Do You Dip or Chew Tobacco: No; Hx Alcohol Use: No Hx Substance Use: No Preferred Language: [place] Communication Ability: Effective Visual Impairment: No Limitations Hearing Ability: Normal 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 current occupational status: disabled How many Children do You have: 2 Other Information That Helps Us Care for You: No Feels Safe at Home: Yes Safety Concerns: Feels Safe At This Time Childhood Exposure to Second-Hand Smoke: Yes Dental Care, Regularly: No Physical Activity Frequency: 1-2 Times per Week Seatbelt Use: always Sunscreen Use: No Assistive Devices: Cane Allergies Allergies Allergy/AdvReac Type Severity Reaction Status Date / Time shellfish derived Allergy Severe anaphylaxis Verified 02/13/21 15:11 codeine Allergy Intermediate Hives Verified 02/13/21 15:11 promethazine Allergy Intermediate itchy/hives Verified 02/13/21 15:11 Home Meds Home Medications Medication Instructions Recorded Confirmed bupropion HCl 100 mg tablet,12 hr 100 mg PO QAM ea 04/14/19 02/14/21 sustained-release melatonin 3 mg tablet 3 mg PO HS tab 09/05/20 02/14/21 acetaminophen 325 mg capsule 650 mg PO Q4H PRN cap 09/28/20 02/14/21 carvedilol 25 mg tablet 25 mg PO BIDM tab 10/01/20 02/14/21 ondansetron HCl 4 mg tablet 4 mg PO Q4H PRN 10/01/20 02/14/21 (Zofran) bisacodyl 10 mg rectal suppository 10 mg NV DAILY PRN 11/29/20 02/14/21 losartan 100 mg tablet 100 mg PO DAILY 11/29/20 02/14/21 polyethylene glycol 3350 17 17 g PO QDL PRN 11/29/20 02/14/21 gram/dose oral powder (Miralax) insulin aspart U-100 100 unit/mL 5 unit SUBCUT TIDM PRN 12/21/20 02/14/21 (3 mL) subcutaneous pen (Novolog Flexpen U-100 Insulin aspart) insulin glargine 100 unit/mL (3 12 unit SUBCUT QAM ml 12/21/20 02/14/21 mL) subcutaneous pen (Basaglar KwikPen U-100 Insulin) Previous Rx's Medication Instructions Recorded amlodipine 5 mg tablet 5 mg PO DAILY #90 tab 12/07/20 sertraline 100 mg tablet 100 mg PO QAM #90 tab 12/11/20 metoclopramide HCl 5 mg tablet 5 mg PO AC PRN #30 tab 01/07/21 quetiapine 25 mg tablet (Seroquel) 25 mg PO HS #30 tab 01/07/21 cholecalciferol (vitamin D3) 50 50 mcg PO DAILY #30 cap 01/17/21 mcg (2,000 unit) capsule (Vitamin D3) lorazepam 0.5 mg tablet 0.5 mg PO Q12 PRN #60 tab 01/18/21 atorvastatin 10 mg tablet 10 mg PO DAILY #90 tab 02/12/21 pantoprazole 40 mg tablet,delayed 40 mg PO BID #60 tab 02/12/21 release warfarin 5 mg tablet See Rx Instructions PO DAILY #120 02/13/21 tab Results & Data (ED) Vital Signs Vital Signs - 24 hr 02/14/21 07:45 02/14/21 07:47 02/14/21 08:00 Temperature 37.2 C Temperature Source Oral Pulse Rate 92 H 94 H 97 H Pulse Rate from SpO2 Sensor 92 H 97 H Pulse Rhythm Regular Pulse Strength Normal Respiratory Rate 13 18 17 Respiratory Effort / Characteristics Non-Labored Spontaneous Respiratory Depth Normal Respiratory Pattern Regular Blood Pressure 197/92 H 197/92 H 212/91 H Blood Pressure Mean 127 127 131 Blood Pressure Position Lying Pulse Oximetry 92 98 98 Oxygen Delivery Method Room Air Sepsis Recent Fever Within 48 Hours No Sepsis New/Unexplained Change in Mental Status N/A Sepsis Action Taken by Nursing No Action Required 02/14/21 09:20 02/14/21 09:30 02/14/21 09:45 Temperature Temperature Source Pulse Rate 97 H 96 H 98 H Pulse Rate from SpO2 Sensor 98 H 96 H 98 H Pulse Rhythm Pulse Strength Respiratory Rate 15 18 16 Respiratory Effort / Characteristics Respiratory Depth Respiratory Pattern Blood Pressure 216/87 H 196/81 H 189/83 H Blood Pressure Mean 130 119 118 Blood Pressure Position Pulse Oximetry 96 96 98 Oxygen Delivery Method Sepsis Recent Fever Within 48 Hours Sepsis New/Unexplained Change in Mental Status Sepsis Action Taken by Nursing 02/14/21 10:00 02/14/21 10:15 02/14/21 10:27 Temperature Temperature Source Pulse Rate 98 H 96 H 97 H Pulse Rate from SpO2 Sensor 99 H 97 H 97 H Pulse Rhythm Pulse Strength Respiratory Rate 15 17 13 Respiratory Effort / Characteristics Respiratory Depth Respiratory Pattern Blood Pressure 202/82 H 208/86 H 202/90 H Blood Pressure Mean 122 126 127 Blood Pressure Position Pulse Oximetry 98 98 97 Oxygen Delivery Method Sepsis Recent Fever Within 48 Hours Sepsis New/Unexplained Change in Mental Status Sepsis Action Taken by Nursing 02/14/21 10:30 02/14/21 10:45 02/14/21 11:00 Temperature Temperature Source Pulse Rate 96 H 96 H 97 H Pulse Rate from SpO2 Sensor 96 H 96 H 97 H Pulse Rhythm Pulse Strength Respiratory Rate 13 15 14 Respiratory Effort / Characteristics Respiratory Depth Respiratory Pattern Blood Pressure 208/89 H 214/89 H 202/90 H Blood Pressure Mean 128 130 127 Blood Pressure Position Pulse Oximetry 96 96 98 Oxygen Delivery Method Sepsis Recent Fever Within 48 Hours Sepsis New/Unexplained Change in Mental Status Sepsis Action Taken by Nursing 02/14/21 11:15 02/14/21 11:30 02/14/21 11:45 Temperature Temperature Source Pulse Rate 98 H 100 H 98 H Pulse Rate from SpO2 Sensor 98 H 100 H 98 H Pulse Rhythm Pulse Strength Respiratory Rate 15 17 12 Respiratory Effort / Characteristics Respiratory Depth Respiratory Pattern Blood Pressure 182/78 H 187/80 H 192/80 H Blood Pressure Mean 112 115 117 Blood Pressure Position Pulse Oximetry 94 95 95 Oxygen Delivery Method Sepsis Recent Fever Within 48 Hours Sepsis New/Unexplained Change in Mental Status Sepsis Action Taken by Nursing 02/14/21 12:00 02/14/21 12:15 02/14/21 12:30 Temperature Temperature Source Pulse Rate 97 H 90 84 Pulse Rate from SpO2 Sensor 97 H 91 H 84 Pulse Rhythm Pulse Strength Respiratory Rate 14 13 14 Respiratory Effort / Characteristics Respiratory Depth Respiratory Pattern Blood Pressure 196/80 H 177/78 H 161/63 H Blood Pressure Mean 118 111 95 Blood Pressure Position Pulse Oximetry 96 96 92 Oxygen Delivery Method Sepsis Recent Fever Within 48 Hours Sepsis New/Unexplained Change in Mental Status Sepsis Action Taken by Nursing 02/14/21 12:45 Temperature Temperature Source Pulse Rate 85 Pulse Rate from SpO2 Sensor 85 Pulse Rhythm Pulse Strength Respiratory Rate 16 Respiratory Effort / Characteristics Respiratory Depth Respiratory Pattern Blood Pressure 154/70 H Blood Pressure Mean 98 Blood Pressure Position Pulse Oximetry 92 Oxygen Delivery Method Sepsis Recent Fever Within 48 Hours Sepsis New/Unexplained Change in Mental Status Sepsis Action Taken by Nursing Laboratory Data Result diagrams: 02/14/21 09:04 02/14/21 09:04 Lab Results 02/14/21 02/14/21 02/14/21 Range/Units 09:04 09:04 09:04 WBC 9.38 (4.8-10.8) K/uL RBC 3.29 L (4.7-6.1) M/uL Hgb 10.3 L (14.0-18.0) g/dL Hct 31.5 L (42-52) % MCV 95.7 (80-100) fL MCH 31.3 (25-34) pg MCHC 32.7 (32-36) g/dL RDW Std Deviation 53.5 H (36.4-46.3) fL RDW Coeff of Kami 15.3 H (11.5-14.5) % Plt Count 380 (130-400) K/uL MPV 8.1 (7.4-10.4) fL Immature Gran % (Auto) 0.3 % Neut % (Auto) 82.3 % Lymph % (Auto) 8.7 % Davie % (Auto) 8.2 % Eos % (Auto) 0.2 % Baso % (Auto) 0.3 % Neut # (Auto) 7.71 H (1.4-6.5) K/uL Lymph # (Auto) 0.82 L (1.2-3.4) K/uL Davie # (Auto) 0.77 H (0.11-0.59) K/uL Eos # (Auto) 0.02 (0-0.5) K/uL Baso # (Auto) 0.03 (0-0.2) K/uL Immature Gran # (Auto) 0.03 H (0.00-0.02) K/uL PT (9.0-12.0) Seconds INR (0.9-1.1) Sodium 132 L (136-145) mmol/L Potassium 4.0 (3.5-5.1) mmol/L Chloride 96 L (98-107) mmol/L Carbon Dioxide 27 (21-32) mmol/L Anion Gap 9.0 (3-11) BUN 29 H D (7-18) mg/dl Creatinine 4.48 H D (0.6-1.4) mg/dl Est Cr Clr Drug Dosing 16.2 ml/min Est GFR ( Amer) 16.5 ml/min Est GFR (Non-Af Amer) 14.3 ml/min BUN/Creatinine Ratio 6.4 L (10-20) Glucose 252 H (70-99) mg/dl POC Glucose (70-99) mg/dl Lactate 0.6 (0.4-2.0) mmol/L Calcium 7.8 L (8.5-10.1) mg/dl Total Bilirubin 0.5 (0.2-1) mg/dl AST 11 L (15-37) U/L ALT 24 (12-78) U/L Alkaline Phosphatase 94 (45-117) U/L Troponin I 0.182 H* (0-0.045) ng/ml Total Protein 6.4 (6.4-8.2) gm/dl Albumin 3.0 L (3.4-5.0) gm/dl Globulin 3.4 (2.5-4.0) gm/dl Albumin/Globulin Ratio 0.9 (0.9-2) Lipase 56 L (73-393) U/L COVID-19 Eval Order SARS-CoV-2 (PCR) (Negative) 02/14/21 02/14/21 02/14/21 Range/Units 09:04 10:03 11:00 WBC (4.8-10.8) K/uL RBC (4.7-6.1) M/uL Hgb (14.0-18.0) g/dL Hct (42-52) % MCV (80-100) fL MCH (25-34) pg MCHC (32-36) g/dL RDW Std Deviation (36.4-46.3) fL RDW Coeff of Kami (11.5-14.5) % Plt Count (130-400) K/uL MPV (7.4-10.4) fL Immature Gran % (Auto) % Neut % (Auto) % Lymph % (Auto) % Davie % (Auto) % Eos % (Auto) % Baso % (Auto) % Neut # (Auto) (1.4-6.5) K/uL Lymph # (Auto) (1.2-3.4) K/uL Davie # (Auto) (0.11-0.59) K/uL Eos # (Auto) (0-0.5) K/uL Baso # (Auto) (0-0.2) K/uL Immature Gran # (Auto) (0.00-0.02) K/uL PT 17.8 H (9.0-12.0) Seconds INR 1.8 H (0.9-1.1) Sodium (136-145) mmol/L Potassium (3.5-5.1) mmol/L Chloride (98-107) mmol/L Carbon Dioxide (21-32) mmol/L Anion Gap (3-11) BUN (7-18) mg/dl Creatinine (0.6-1.4) mg/dl Est Cr Clr Drug Dosing ml/min Est GFR ( Amer) ml/min Est GFR (Non-Af Amer) ml/min BUN/Creatinine Ratio (10-20) Glucose (70-99) mg/dl POC Glucose 262 H (70-99) mg/dl Lactate (0.4-2.0) mmol/L Calcium (8.5-10.1) mg/dl Total Bilirubin (0.2-1) mg/dl AST (15-37) U/L ALT (12-78) U/L Alkaline Phosphatase (45-117) U/L Troponin I (0-0.045) ng/ml Total Protein (6.4-8.2) gm/dl Albumin (3.4-5.0) gm/dl Globulin (2.5-4.0) gm/dl Albumin/Globulin Ratio (0.9-2) Lipase (73-393) U/L COVID-19 Eval Order Covid19 at [facility] SARS-CoV-2 (PCR) (Negative) 02/14/21 Range/Units 11:00 WBC (4.8-10.8) K/uL RBC (4.7-6.1) M/uL Hgb (14.0-18.0) g/dL Hct (42-52) % MCV (80-100) fL MCH (25-34) pg MCHC (32-36) g/dL RDW Std Deviation (36.4-46.3) fL RDW Coeff of Kami (11.5-14.5) % Plt Count (130-400) K/uL MPV (7.4-10.4) fL Immature Gran % (Auto) % Neut % (Auto) % Lymph % (Auto) % Davie % (Auto) % Eos % (Auto) % Baso % (Auto) % Neut # (Auto) (1.4-6.5) K/uL Lymph # (Auto) (1.2-3.4) K/uL Davie # (Auto) (0.11-0.59) K/uL Eos # (Auto) (0-0.5) K/uL Baso # (Auto) (0-0.2) K/uL Immature Gran # (Auto) (0.00-0.02) K/uL PT (9.0-12.0) Seconds INR (0.9-1.1) Sodium (136-145) mmol/L Potassium (3.5-5.1) mmol/L Chloride (98-107) mmol/L Carbon Dioxide (21-32) mmol/L Anion Gap (3-11) BUN (7-18) mg/dl Creatinine (0.6-1.4) mg/dl Est Cr Clr Drug Dosing ml/min Est GFR ( Amer) ml/min Est GFR (Non-Af Amer) ml/min BUN/Creatinine Ratio (10-20) Glucose (70-99) mg/dl POC Glucose (70-99) mg/dl Lactate (0.4-2.0) mmol/L Calcium (8.5-10.1) mg/dl Total Bilirubin (0.2-1) mg/dl AST (15-37) U/L ALT (12-78) U/L Alkaline Phosphatase (45-117) U/L Troponin I (0-0.045) ng/ml Total Protein (6.4-8.2) gm/dl Albumin (3.4-5.0) gm/dl Globulin (2.5-4.0) gm/dl Albumin/Globulin Ratio (0.9-2) Lipase (73-393) U/L COVID-19 Eval Order SARS-CoV-2 (PCR) NEGATIVE (Negative) Administered Medications Discontinued Medications Haloperidol Lactate (Haloperidol Lactate 5 Mg/Ml 1 Ml Vial) 2.5 mg IM NOW STA Stop: 02/14/21 10:37 Last Admin: 02/14/21 10:56 Dose: 2.5 mg Documented by: [id number] Hydralazine HCl (Hydralazine Hcl 20 Mg/Ml Vial) 5 mg IV NOW ONE Stop: 02/14/21 08:13 Last Admin: 02/14/21 09: Dose: 5 mg Documented by: [id number] Hydralazine HCl (Hydralazine Hcl 20 Mg/Ml Vial) 5 mg IV NOW ONE Stop: 02/14/21 10:37 Last Admin: 02/14/21 10:56 Dose: 5 mg Documented by: [id number] Labetalol HCl (Labetalol Hcl Iv 5 Mg/Ml 20ml) 10 mg IV NOW STA Stop: 02/14/21 11:52 Last Admin: 02/14/21 12:14 Dose: 10 mg Documented by: [id number] Cosigned by: [id number] Metoclopramide HCl (Metoclopramide Hcl Inj 5 Mg/Ml 2 Ml Vial) 5 mg IV NOW STA Stop: 02/14/21 08:13 Last Admin: 02/14/21 09:20 Dose: 5 mg Documented by: [id number] Imaging Data Radiologist's Impression: Chest X-Ray 02/14/21 10:37 XR chest 1V portable CLINICAL HISTORY: nausea, pleural drain COMPARISON STUDY: February 13, 2021 FINDINGS: No pneumothorax. Minimal silhouetting of the midportion of the left hemidiaphragm could be due to minimal pleural effusion. Left chest tube is projecting over left hemithorax. Minimal atelectasis at the left base. The rest of lung parenchyma is clear. Cardiomediastinal silhouette is within normal limits in size. No significant pulmonary vascular congestion.. Osseous structures: unremarkable IMPRESSION: 1. Possible minimal left pleural effusion or atelectasis. Left chest tube is in place. The rest of findings as above. ACT 112: Negative or not required by law. The above report was generated using voice recognition software. It may contain grammatical, syntax or spelling errors. Electronically signed by: Cristina Wong DO 02/14/2021 10:57 AM Discharge Plan Visit Data Chief Complaint: Hypertension Stated Complaint: NAUSEA, VOMITING, HTN ED Provider: Calderon Griffin Discharge Problem: Nausea & vomiting, ESRD (end stage renal disease), Gastroparesis, Hypertensive urgency Patient Disposition: Admitted As Inpatient Discharge Instructions Interventions: ED Discharge Assessment Last Done: 02/14/21 14:20 Discharge Problem: Nausea & vomiting Qualifiers: Vomiting type: unspecified Vomiting Intractability: intractable Qualified Code(s): R11.2 - Nausea with vomiting, unspecified
[2021-02-14 09:16] LABS: Basophils # (auto) 0.03 K/uL (0-0.2); Basophils % (auto) 0.3 %; Eosinophils # (auto) 0.02 K/uL (0-0.5); Eosinophils % (auto) 0.2 %; Hematocrit (blood only) 31.5 % (42-52); Hemoglobin 10.3 g/dL (14.0-18.0); Immature Granulocytes # (auto) 0.03 K/uL (0.00-0.02); Immature Granulocytes % (auto) 0.3 %; Lymphocytes # (auto) 0.82 K/uL (1.2-3.4); Lymphocytes % (auto) 8.7 %; Mean Corpuscular Hemoglobin 31.3 pg (25-34); Mean Corpuscular Hgb Conc 32.7 g/dL (32-36); Mean Corpuscular Volume 95.7 fL (80-100); Mean Platelet Volume 8.1 fL (7.4-10.4); Monocytes # (auto) 0.77 K/uL (0.11-0.59); Monocytes % (auto) 8.2 %; Neutrophils # (auto) 7.71 K/uL (1.4-6.5); Neutrophils % (auto) 82.3 %; Platelet Count 380 K/uL (130-400); RDW Coefficient of Variation 15.3 % (11.5-14.5); RDW Standard Deviation 53.5 fL (36.4-46.3); Red Blood Count 3.29 M/uL (4.7-6.1); White Blood Count 9.38 K/uL (4.8-10.8)
[2021-02-14 09:27] LABS: INR 1.8 (0.9-1.1); Prothrombin Time 17.8 Seconds (9.0-12.0)
[2021-02-14 09:35] LABS: BUN Creatinine Ratio 6.4 (10-20); Calcium 7.8 mg/dl (8.5-10.1); Creatinine Clr Calc Pharmacy 16.2 ml/min; Est GFR (African American) 16.5 ml/min; Est GFR (Non-African American) 14.3 ml/min
[2021-02-14 09:57] LABS: Albumin Globulin Ratio 0.9 (0.9-2); Bilirubin,Total 0.5 mg/dl (0.2-1); Globulin 3.4 gm/dl (2.5-4.0); Total Protein 6.4 gm/dl (6.4-8.2); Troponin I 0.182 ng/ml (0-0.045)
[2021-02-14] MEDS ORDERED: HALOPERIDOL LACTATE 5 MG/ML 1 ML VIAL IM STA (10:36)
--- NOTE | 2021-02-14 10:59 | XRay Report ---
XR chest 1V portable CLINICAL HISTORY: nausea, pleural drain COMPARISON STUDY: February 13, 2021 FINDINGS: No pneumothorax. Minimal silhouetting of the midportion of the left hemidiaphragm could be due to minimal pleural eff usion. Left chest tube is projecting over left hemithorax. Minimal atelectasis at the left base. The rest of lung parenchyma is clear. Cardiomediastinal silhouette is within normal limits in size. No significant pulmonary vascular congestion.. Osseous structures: unremarkable IMPRESSION: 1. Possible minimal left pleural effusion or atelectasis. Left chest tube is in place. The rest of f indings as above. ACT 112: Negative or not required by law. The above report was generated using voice recognition software. It may contain grammatical, syntax o r spelling errors. Electronically signed by: Cristina Wong DO 02/14/2021 10:57 AM
[2021-02-14] MEDS ORDERED: LABETALOL HCL IV 5 MG/ML 20ML IV STA (11:51)
--- NOTE | 2021-02-14 12:42 | History & Physical Report ---
Date of Service February 14, 2021 Assessment & Plan (1) Cyclical vomiting: Plan: Assessment & Plan (1) Cyclic vomiting syndrome: Plan: 1. Cyclic Vomiting Syndrome -Patient returns with above problem. -will admit, start IVF. -FAMILY INTERESTED IN PALLIATIVE CARE - GI consult worsening gastroparesis 2 Hypertension: Continue other medications as ordered, including carvedilol 25 mg twice daily losartan 100 mg daily amlodipine 5 mg daily 3 Dialysis patient: Hemodialysis Thursday nephro consult (4) Nonischemic cardiomyopathy: Continue cardiac regimen including carvedilol as noted last echo EF of 40 to 45%, increased RV presure, mod global hypokinesis of L ventricle (5) CAD (coronary artery disease): Cardiac medications as noted above along with atorvastatin 10 mg daily (6) Pleural effusion: recurrent Left-sided pleural effusion, pulm consult for evaluation of chemical pleurodesis (7) Pulmonary embolism hx continue anticoagulation with warfarin 8) anx/dep cont. home meds. 9, IDDM - glargine 12 u AM - SSI - hypoglycemia due to vomiting/decreased PO intake while taking insulin dvt ppx: on warfarin fen/gi: NPO dispo: med/surg code status: full code (2) Nausea & vomiting: (3) Hypertensive urgency: (4) Cyclic vomiting syndrome: History of Present Illness Chief Complaint: vomiting Primary Care Provider: Abbi Ames MD 50-year-old patient with history of cyclic vomiting syndrome, type 1 diabetes with diabetic neuropathy and end-stage renal disease on dialysis, CAD, gastroparesis currently anticoagulated on Coumadin comes to the ER from home with nausea and vomiting overnight as well as elevated BP. He has had multple episodes in the past with similar presentations to the ER. Usually occurs after dialysis. Father and son are interested in palliative care. Patient states he completed a course of dialysis yesterday. Denies any abdominal pain or chest pain, or trouble breathing. Patient has not been able to take his morning medications this morning. Allergies Allergy/AdvReac Type Severity Reaction Status Date / Time shellfish derived Allergy Severe anaphylaxis Verified 02/13/21 15:11 codeine Allergy Intermediate Hives Verified 02/13/21 15:11 promethazine Allergy Intermediate itchy/hives Verified 02/13/21 15:11 Home Medications Medication Instructions Recorded Confirmed Type bupropion HCl 100 mg tablet,12 hr 100 mg PO QAM ea 04/14/19 02/14/21 History sustained-release melatonin 3 mg tablet 3 mg PO HS tab 09/05/20 02/14/21 History acetaminophen 325 mg capsule 650 mg PO Q4H PRN cap 09/28/20 02/14/21 History carvedilol 25 mg tablet 25 mg PO BIDM tab 10/01/20 02/14/21 History ondansetron HCl 4 mg tablet 4 mg PO Q4H PRN 10/01/20 02/14/21 History (Zofran) bisacodyl 10 mg rectal suppository 10 mg [place] DAILY PRN 11/29/20 02/14/21 History losartan 100 mg tablet 100 mg PO DAILY 11/29/20 02/14/21 History polyethylene glycol 3350 17 17 g PO QDL PRN 11/29/20 02/14/21 History gram/dose oral powder (Miralax) amlodipine 5 mg tablet 5 mg PO DAILY #90 tab 12/07/20 02/14/21 Rx sertraline 100 mg tablet 100 mg PO QAM #90 tab 12/11/20 02/14/21 Rx insulin aspart U-100 100 unit/mL 5 unit SUBCUT TIDM PRN 12/21/20 02/14/21 History (3 mL) subcutaneous pen (Novolog Flexpen U-100 Insulin aspart) insulin glargine 100 unit/mL (3 12 unit SUBCUT QAM ml 12/21/20 02/14/21 History mL) subcutaneous pen (Basaglar KwikPen U-100 Insulin) metoclopramide HCl 5 mg tablet 5 mg PO AC PRN #30 tab 01/07/21 02/14/21 Rx quetiapine 25 mg tablet (Seroquel) 25 mg PO HS #30 tab 01/07/21 02/14/21 Rx cholecalciferol (vitamin D3) 50 50 mcg PO DAILY #30 cap 01/17/21 02/14/21 Rx mcg (2,000 unit) capsule (Vitamin D3) lorazepam 0.5 mg tablet 0.5 mg PO Q12 PRN #60 tab 01/18/21 02/14/21 Rx atorvastatin 10 mg tablet 10 mg PO DAILY #90 tab 02/12/21 02/14/21 Rx pantoprazole 40 mg tablet,delayed 40 mg PO BID #60 tab 02/12/21 02/14/21 Rx release warfarin 5 mg tablet See Rx Instructions PO DAILY #120 02/13/21 02/14/21 Rx tab Past Med/Surg History Medical History Anemia Anemia of chronic disease Anxiety AV fistula left arm Bilateral calf pain CAD (coronary artery disease) mild, non-obstructive CAD per 10/2018 cardiac cath> [facility] Depression Diabetes Diabetic retinopathy Dialysis patient Dialysis patient DKA (diabetic ketoacidoses) Esophagitis ESRD (end stage renal disease) M,W,F (Follows with Dr. Lor Guadalupe; [facility]) ESRD (end stage renal disease) on dialysis ESRD on dialysis Gastroparesis GERD (gastroesophageal reflux disease) Hematemesis Hypertension Hypertension Intractable vomiting with nausea Kidney stones Lumbar compression fracture Lumbar radiculopathy Nausea & vomiting Peripheral neuropathy Pleural effusion Pleural effusion Retinopathy due to secondary diabetes Severe protein-calorie malnutrition Vomiting Surgical History H/O shoulder surgery RIGHT History of appendectomy History of cardiac cath 10/2018= no stents, no obstructive disease (at [facility]) History of cataract surgery History of esophagogastroduodenoscopy (EGD) (~03/08/20) History of hip surgery left HIP ARTHROSCOPY History of lithotripsy History of open reduction and internal fixation (ORIF) procedure right hip Nausea and vomiting after administration of anesthetic agent Permanent central venous catheter in place Permacath has been removed S/P arteriovenous (AV) fistula creation Family History Grandfather Myocardial infarction Grandfather (Maternal) Family history of diabetes mellitus Uncle Myocardial infarction Other No family history of adverse response to anesthesia Denies family history of Colon cancer Ovarian cancer Prostate cancer Breast cancer Social History Smoking Status: Never smoker Second Hand Exposure: No; Do You Dip or Chew Tobacco: No; Hx Alcohol Use: No Hx Substance Use: No Preferred Language: Khmer Communication Ability: Effective Visual Impairment: No Limitations Hearing Ability: Normal Sugar Laboratory Assistant Required: No Beliefs That Will Affect Care: None marital status: Current Living Situation: Parent Current Living Situation Comment: lives with parents. current occupational status: disabled How many Children do You have: 2 Other Information That Helps Us Care for You: No Feels Safe at Home: Yes Safety Concerns: Feels Safe At This Time Childhood Exposure to Second-Hand Smoke: Yes Dental Care, Regularly: No Physical Activity Frequency: 1-2 Times per Week Seatbelt Use: always Sunscreen Use: No Assistive Devices: None Review of Systems Review of Systems: All systems reviewed & are unremarkable except as noted in HPI & below Physical Exam Physical Exam: Constitutional: in no apparent distress,listless appearing Eyes: EOMI, pupils equal and reactive bilaterally, no scleral icterus Cardiac: RRR, no murmurs, gallops or rubs. Normal S1, S2 Pulm: CTA BL, no wheezes, rhonchi, crackles or rubs, moving air well throughout both lungs Abd: soft, nontender, nondistended, normal bowel sounds, no rebound or guarding Extremities: 2+ peripheral pulses, no edema Neuro: no focal deficits, moving all 4 limbs, A&Ox3 Results & Data Results & Data ([facility]) Vital Signs (Past 12 Hours) Vital Signs Temp Pulse Resp BP Pulse Ox 02/14/21 11:45 98 H 12 192/80 H 95 02/14/21 11:30 100 H 17 187/80 H 95 02/14/21 11:15 98 H 15 182/78 H 94 02/14/21 11:00 97 H 14 202/90 H 98 02/14/21 10:45 96 H 15 214/89 H 96 02/14/21 10:30 96 H 13 208/89 H 96 02/14/21 10:27 97 H 13 202/90 H 97 02/14/21 10:15 96 H 17 208/86 H 98 02/14/21 10:00 98 H 15 202/82 H 98 02/14/21 09:45 98 H 16 189/83 H 98 02/14/21 09:30 96 H 18 196/81 H 96 02/14/21 09:20 97 H 15 216/87 H 96 02/14/21 08:00 97 H 17 212/91 H 98 02/14/21 07:47 37.2 C 94 H 18 197/92 H 98 02/14/21 07:45 92 H 13 197/92 H 92 PG Care Time/CCT Total # of Minutes Spent Total Time Spent with Patient: Total time spent is greater than 50% in coordination of care (as documented) at patient's floor/unit and/or counseling patient: Coding Level of Care Code INT OBSERVATION CARE 70M LVL 3 Diagnoses Cyclical vomiting R11.15 Nausea & vomiting R11.2 Vomiting Intractability: intractable Vomiting type: unspecified Hypertensive urgency I16.0 Cyclic vomiting syndrome R11.15 Time Spent (min) 55 (1) Nausea & vomiting Vomiting Intractability: intractable Vomiting type: unspecified Qualified Code(s): R11.2 - Nausea with vomiting, unspecified
[2021-02-14] MEDS ORDERED: ACETAMINOPHEN 325 MG TAB PO PRN ×2 (12:45→12:51)
[2021-02-14] MEDS ORDERED: PHARMACY GLYCEMIC MGMT CONSULT PRN (12:49)
[2021-02-14] MEDS ORDERED: LORazepam 0.5 MG TAB PO PRN (12:51)
[2021-02-14] MEDS ORDERED: bisacodyL 10 MG SUPP PR PRN (12:51)
[2021-02-14] MEDS ORDERED: POLYETHYLENE (MIRALAX) 17 GM PACK PO PRN (12:51)
--- NOTE | 2021-02-14 13:31 | Gastrointestinal Consultation ---
Date of Consultation February 14, 2021 Assessment & Plan (1) Nausea: Impression: patient with a history of gastroparesis, I wonder if some of his symptoms may be related to use of medication such as sertraline, Seroquel and lorazepam as mentioned during his recent hospitalization. In addition the patient does have a history of renal failure and is on dialysis, perhaps some of his symptoms are related to uremia given his increased creatinine. I Would recommend that the sertraline, Seroquel and lorazepam be discontinued be discontinued. Recommendations Consider stopping the sertraline, Seroquel and Lorazepam Advance to a low residue diet Please call with any additional questions or concerns History of Present Illness Reason for Consultation: Nausea Requesting Physician: Dr. [id number] History of Present Illness We were asked to see this patient for history of gastroparesis. The patient reports that he has had worsening nausea over the last 72 hours. He does have a history of gastroparesis and previously had an upper endoscopy performed by Dr. Martinez in September of this year. The examination was notable for no obvious endoscopic findings to explain his symptoms however, he was treated with Botox injection to the pylorus and pyloric dilation. Unfortunately these interventions did not appear to improve the patient's symptoms. He notes that he also has some difficulty with constipation and last had a bowel movement 24 hours ago. The patient denies having fevers chills rigors shortness of breath or cough today. The patient does have a long history of diabetes in addition to psychiatric problems for which he is on numerous medications. Allergies Allergy/AdvReac Type Severity Reaction Status Date / Time shellfish derived Allergy Severe anaphylaxis Verified 02/13/21 15:11 codeine Allergy Intermediate Hives Verified 02/13/21 15:11 promethazine Allergy Intermediate itchy/hives Verified 02/13/21 15:11 Home Medications Medication Instructions Recorded Confirmed Type bupropion HCl 100 mg tablet,12 hr 100 mg PO QAM ea 04/14/19 02/14/21 History sustained-release melatonin 3 mg tablet 3 mg PO HS tab 09/05/20 02/14/21 History acetaminophen 325 mg capsule 650 mg PO Q4H PRN cap 09/28/20 02/14/21 History carvedilol 25 mg tablet 25 mg PO BIDM tab 10/01/20 02/14/21 History ondansetron HCl 4 mg tablet 4 mg PO Q4H PRN 10/01/20 02/14/21 History (Zofran) bisacodyl 10 mg rectal suppository 10 mg [place] DAILY PRN 11/29/20 02/14/21 History losartan 100 mg tablet 100 mg PO DAILY 11/29/20 02/14/21 History polyethylene glycol 3350 17 17 g PO QDL PRN 11/29/20 02/14/21 History gram/dose oral powder (Miralax) amlodipine 5 mg tablet 5 mg PO DAILY #90 tab 12/07/20 02/14/21 Rx sertraline 100 mg tablet 100 mg PO QAM #90 tab 12/11/20 02/14/21 Rx insulin aspart U-100 100 unit/mL 5 unit SUBCUT TIDM PRN 12/21/20 02/14/21 History (3 mL) subcutaneous pen (Novolog Flexpen U-100 Insulin aspart) insulin glargine 100 unit/mL (3 12 unit SUBCUT QAM ml 12/21/20 02/14/21 History mL) subcutaneous pen (Basaglar KwikPen U-100 Insulin) metoclopramide HCl 5 mg tablet 5 mg PO AC PRN #30 tab 01/07/21 02/14/21 Rx quetiapine 25 mg tablet (Seroquel) 25 mg PO HS #30 tab 01/07/21 02/14/21 Rx cholecalciferol (vitamin D3) 50 50 mcg PO DAILY #30 cap 01/17/21 02/14/21 Rx mcg (2,000 unit) capsule (Vitamin D3) lorazepam 0.5 mg tablet 0.5 mg PO Q12 PRN #60 tab 01/18/21 02/14/21 Rx atorvastatin 10 mg tablet 10 mg PO DAILY #90 tab 02/12/21 02/14/21 Rx pantoprazole 40 mg tablet,delayed 40 mg PO BID #60 tab 02/12/21 02/14/21 Rx release warfarin 5 mg tablet See Rx Instructions PO DAILY #120 02/13/21 02/14/21 Rx tab Patient History Medical History Anemia Anemia of chronic disease Anxiety AV fistula left arm Bilateral calf pain CAD (coronary artery disease) mild, non-obstructive CAD per 10/2018 cardiac cath> [facility] Depression Diabetes Diabetic retinopathy Dialysis patient Dialysis patient DKA (diabetic ketoacidoses) Esophagitis ESRD (end stage renal disease) M,W,F (Follows with Dr. Lor Guadalupe; [facility]) ESRD (end stage renal disease) on dialysis ESRD on dialysis Gastroparesis GERD (gastroesophageal reflux disease) Hematemesis Hypertension Hypertension Intractable vomiting with nausea Kidney stones Lumbar compression fracture Lumbar radiculopathy Nausea & vomiting Peripheral neuropathy Pleural effusion Pleural effusion Retinopathy due to secondary diabetes Severe protein-calorie malnutrition Vomiting Surgical History H/O shoulder surgery RIGHT History of appendectomy History of cardiac cath 10/2018= no stents, no obstructive disease (at [facility]) History of cataract surgery History of esophagogastroduodenoscopy (EGD) (~03/08/20) History of hip surgery left HIP ARTHROSCOPY History of lithotripsy History of open reduction and internal fixation (ORIF) procedure right hip Nausea and vomiting after administration of anesthetic agent Permanent central venous catheter in place Permacath has been removed S/P arteriovenous (AV) fistula creation Family History Grandfather Myocardial infarction Grandfather (Maternal) Family history of diabetes mellitus Uncle Myocardial infarction Other No family history of adverse response to anesthesia Denies family history of Colon cancer Ovarian cancer Prostate cancer Breast cancer Social History Smoking Status: Never smoker Second Hand Exposure: No; Hx Alcohol Use: No Hx Substance Use: No Preferred Language: Portuguese Communication Ability: Effective Visual Impairment: No Limitations Hearing Ability: Normal Nursing Education Consultant Required: No Beliefs That Will Affect Care: None marital status: Current Living Situation: Parent Current Living Situation Comment: lives with parents. current occupational status: disabled How many Children do You have: 2 Feels Safe at Home: Yes Childhood Exposure to Second-Hand Smoke: Yes Dental Care, Regularly: No Physical Activity Frequency: 1-2 Times per Week Seatbelt Use: always Sunscreen Use: No Assistive Devices: Walker Review of Systems Constitutional: as per Subjective / HPI; no fever and no sweats Eyes: no diplopia Ear, Nose, Mouth, Throat: no ear trauma and no nasal discharge Respiratory: no change in sputum and no hemoptysis Cardiovascular: no chest pain with activity and no dyspnea at rest Gastrointestinal: + nausea; no bloating and no hematemesis Integumentary: no rash Neurologic: no falls and no paralysis Psychiatric: no suicidal ideation Endocrine: no polydipsia Hematologic / Lymphatic: no easy bleeding and no coagulopathy Allergy / Immunological: no lip swelling, no tongue swelling and no cough Physical Exam Constitutional: WD/WN, vitals as above Eyes: PERRL, conjunctivae normal, anicteric sclerae Neck: trachea midline, no thyromegaly Respiratory: normal respiratory effort, lungs clear to auscultation Left- sided chest tube noted Cardiovascular: Rate/Rhythm: regular rate Gastrointestinal (Abdomen): normal bowel sounds, soft, nontender, no hepatosplenomegaly Skin: no rashes, warm and dry Results & Data ([facility]) Vital Signs (Past 12 Hours) Vital Signs Temp Pulse Resp BP Pulse Ox 02/14/21 11:45 98 H 12 192/80 H 95 02/14/21 11:30 100 H 17 187/80 H 95 02/14/21 11:15 98 H 15 182/78 H 94 02/14/21 11:00 97 H 14 202/90 H 98 02/14/21 10:45 96 H 15 214/89 H 96 02/14/21 10:30 96 H 13 208/89 H 96 02/14/21 10:27 97 H 13 202/90 H 97 02/14/21 10:15 96 H 17 208/86 H 98 02/14/21 10:00 98 H 15 202/82 H 98 02/14/21 09:45 98 H 16 189/83 H 98 02/14/21 09:30 96 H 18 196/81 H 96 02/14/21 09:20 97 H 15 216/87 H 96 02/14/21 08:00 97 H 17 212/91 H 98 02/14/21 07:47 37.2 C 94 H 18 197/92 H 98 02/14/21 07:45 92 H 13 197/92 H 92 Laboratory Results Laboratory Results - last 24 hr 02/14/21 02/14/21 02/14/21 09:04 09:04 09:04 WBC 9.38 RBC 3.29 L Hgb 10.3 L Hct 31.5 L MCV 95.7 MCH 31.3 MCHC 32.7 RDW Std Deviation 53.5 H RDW Coeff of Kami 15.3 H Plt Count 380 MPV 8.1 Immature Gran % (Auto) 0.3 Neut % (Auto) 82.3 Lymph % (Auto) 8.7 [place]upe % (Auto) 8.2 Eos % (Auto) 0.2 Baso % (Auto) 0.3 Neut # (Auto) 7.71 H Lymph # (Auto) 0.82 L [place] # (Auto) 0.77 H Eos # (Auto) 0.02 Baso # (Auto) 0.03 Immature Gran # (Auto) 0.03 H PT INR Sodium 132 L Potassium 4.0 Chloride 96 L Carbon Dioxide 27 Anion Gap 9.0 BUN 29 H D Creatinine 4.48 H D Est Cr Clr Drug Dosing 16.2 Est GFR ( Amer) 16.5 Est GFR (Non-Af Amer) 14.3 BUN/Creatinine Ratio 6.4 L Glucose 252 H POC Glucose Lactate 0.6 Calcium 7.8 L Total Bilirubin 0.5 AST 11 L ALT 24 Alkaline Phosphatase 94 Troponin I 0.182 H* Total Protein 6.4 Albumin 3.0 L Globulin 3.4 Albumin/Globulin Ratio 0.9 Lipase 56 L COVID-19 Eval Order SARS-CoV-2 (PCR) 02/14/21 02/14/21 02/14/21 09:04 10:03 11:00 WBC RBC Hgb Hct MCV MCH MCHC RDW Std Deviation RDW Coeff of Kami Plt Count MPV Immature Gran % (Auto) Neut % (Auto) Lymph % (Auto) Gu[place]upe % (Auto) Eos % (Auto) Baso % (Auto) Neut # (Auto) Lymph # (Auto) [place]upe # (Auto) Eos # (Auto) Baso # (Auto) Immature Gran # (Auto) PT 17.8 H INR 1.8 H Sodium Potassium Chloride Carbon Dioxide Anion Gap BUN Creatinine Est Cr Clr Drug Dosing Est GFR ( Amer) Est GFR (Non-Af Amer) BUN/Creatinine Ratio Glucose POC Glucose 262 H Lactate Calcium Total Bilirubin AST ALT Alkaline Phosphatase Troponin I Total Protein Albumin Globulin Albumin/Globulin Ratio Lipase COVID-19 Eval Order Covid19 at [facility] SARS-CoV-2 (PCR) Lymph # (Auto) Gu[place]upe # (Auto) Eos # (Auto) Baso # (Auto) Immature Gran # (Auto) PT INR Sodium Potassium Chloride Carbon Dioxide Anion Gap BUN Creatinine Est Cr Clr Drug Dosing Est GFR ( Amer) Est GFR (Non-Af Amer) BUN/Creatinine Ratio Glucose POC Glucose Lactate Calcium Total Bilirubin AST ALT Alkaline Phosphatase Troponin I Total Protein Albumin Globulin Albumin/Globulin Ratio Lipase COVID-19 Eval Order SARS-CoV-2 (PCR) NEGATIVE Diagnostic Findings XR chest 1V portable CLINICAL HISTORY: nausea, pleural drain COMPARISON STUDY: February 13, 2021 FINDINGS: No pneumothorax. Minimal silhouetting of the midportion of the left hemidiaphragm could be due to minimal pleural effusion. Left chest tube is projecting over left hemithorax. Minimal atelectasis at the left base. The rest of lung parenchyma is clear. Cardiomediastinal silhouette is within normal limits in size. No significant pulmonary vascular congestion.. Osseous structures: unremarkable IMPRESSION: 1. Possible minimal left pleural effusion or atelectasis. Left chest tube is in place. The rest of findings as above.
--- NOTE | 2021-02-14 14:06 | Pharmacy Report ---
Pharmacy Glycemic Short Note 2 - Date of Service February 14, 2021 - Glycemic Short BSG Results (Last 24 hours): 02/14/21 02/14/21 09:04 10:03 Glucose 252 H POC Glucose 262 H OUTPATIENT ANTIDIABETIC REGIMEN: * Lantus 12 units SQ AM * NovoLog AC per CF = 30 and CR = 10 ( ~5 units SQ TIDM) * A1c = unreliable secondary to ESRD ASSESSMENT: * 50yo T1DM male known well to pharmacy from previous admissions/glycemic consults * Pt with a history of very brittle DM - frequent BSG swings which can be difficult to control since they tend to occur without a direct cause. * Will initiate SQ basal bolus insulin regimen similar to previous admissions and titrate based on BSG trends. PLAN FOR INPATIENT GLYCEMIC CONTROL: * Basal insulin * Lantus 12 units SQ daily in AM + 7 units SQ PM * OK to give if NPO * Bolus insulin * NovoLog per scale ACHS or Q6hrs while NPO * Goal Range: Low 110 mg/dL - High 160 mg/dL * Correction Factor: 40 mg/dL/unit * Nutritional / Prandial insulin per carb ratio of 1 unit per 9 grams CHO consumed PLAN FOR DISCHARGE: * Pt to continue f/w with [facility] endocr[facility]ology office.
--- NOTE | 2021-02-14 16:10 | Consultation Report ---
NEPHROLOGY CONSULTATION NOTE DATE OF CONSULTATION: 02/14/2021 REASON FOR CONSULTATION: Dialysis patient admitted with intractable nausea, vomiting and lightheaded ness. HISTORY OF PRESENT ILLNESS: The patient is a 50-year-old male with longstanding diabetes with ESRD, on chronic hemodialysis Thursday, Thursday, Thursday. Unfortunately, he has severe GI symptoms, which h ave required more than 10 admissions in 2020 alone between various hospitals. It does not appear jamin t the symptoms seem to resolve with any therapeutic intervention or procedures. He presented to the hospital with the same exact symptoms of nausea, vomiting. He also had some dizziness. It is worth noting that the patient also has orthostatic hypotension. His supine blood pressure is usually high, but standing can be lot lower. He had his dialysis yesterday without any problem with the fistula. PAST MEDICAL AND SURGICAL HISTORY: Includes longstanding diabetes with ESRD, on hemodialysis Thursday, Thursday, Thursday, diabetic retinopathy, depression, coronary artery disease, AV fistula, anemia of ESRD, severe gastroparesis, hypertension, history of kidney stones, shoulder surgery, open reduction and internal fixation of hip, cataract surgery, history of heart catheterization in 2019, AV fistula surgery. FAMILY HISTORY: Negative for renal disease or dialysis. SOCIAL HISTORY: Never smoked. No alcohol. He is . He is currently living with his parents . He is disabled. He uses walker for ambulation. REVIEW OF SYSTEMS: Besides nausea, vomiting and dizziness, no other symptom was positive. A 12-syste m was reviewed in total. ALLERGIES: List reviewed. MEDICATIONS: Home medication list was reviewed and is as per the H and P and reconciliation list. PHYSICAL EXAMINATION: GENERAL: A middle-aged white male who appears to be breathing normally. No respiratory distress. VITAL SIGNS: Blood pressure is 164/69, pulse rate 88, temperature 37 degrees Celsius, 97% on room ai r. HEENT: Mucous membrane is moist. NECK: Supple. No jugular venous distention. CHEST: Bilaterally clear to auscultation. CARDIOVASCULAR: S1, S2, regular. ABDOMEN: Soft, nontender. EXTREMITIES: Show no edema. AV fistula appears to have good bruit and thrill. LABORATORY TEST: Reviewed in detail. Sodium 132, potassium 4.0, BUN 29, creatinine is 4.48. Hemoglo bin 10.3. CHEST X-RAY: Minimal left pleural effusion, left chest tube is in place. ASSESSMENT AND PLAN: A 50-year-old male with end-stage renal disease secondary to longstanding diabe bakari, on chronic hemodialysis Thursday, Thursday, Thursday, admitted with intractable nausea, vomiting an d dizziness. I have been consulted for dialysis management. 1. End-stage renal disease: He will get dialysis tomorrow through his arteriovenous fistula. We wi ll do for 3 hours 30 minutes on a 2K bath and take about 1-1.5 kilo fluid. He has had recurrent prob jessica with left pleural effusion and has needed multiple hospital admissions. He still has the chest t ube in place. Dialysis has not been successful in resolving the pleural effusion and as a result, he then had a chest tube placed. 2. Intractable nausea and vomiting: Unfortunately, this has been ongoing for years and appears to b e secondary to severe gastroparesis and has required many hospital admissions within the last few thus at various hospitals. Defer to gastrointestinal consultants. 3. Hypertension: It is worth noting the patient always has high supine blood pressure, but his carolyn ding blood pressure can drop significantly and I would not aggressively treat his hypertension based on supine blood pressure. Job ID: [id number]
[2021-02-14] MEDS ORDERED: INSULIN GLARGINE SOLOSTAR 100 UNITS/ML 3 ML PEN SQ SCH (16:30)
[2021-02-14] MEDS: WARFARIN SOD 5 MG TAB PO SCH (16:55)
[2021-02-14] MEDS: carvediloL 25 MG TAB PO SCH (16:55)
[2021-02-14] MEDS: INSULIN ASPART 100 UNITS/ML 3 ML PEN SQ SCH ×2 (16:57→20:26)
--- NOTE | 2021-02-14 18:29 | Electrocardiogram Report ---
Test Reason : Blood Pressure : / mmHG Vent. Rate : 097 BPM Atrial Rate : 097 BPM P-R Int : 200 ms QRS Dur : 090 ms QT Int : 382 ms P-R-T Axes : 068 -28 064 degrees QTc Int : 485 ms Poor data quality, interpretation may be adversely affected Normal sinus rhythm Possible Left atrial enlargement Abnormal ECG When compared with ECG of 13-FEB-2021 13:07, No significant change was found Confirmed by Dewayne Spivey ([id number]) on 02/14/2021 6:29:30 PM Referred By: Confirmed By:Pee Spivey
[2021-02-14] MEDS: MELATONIN 3 MG TAB PO SCH (20:26)
[2021-02-14] MEDS: QUEtiapine FUMARATE 25 MG TABLET PO SCH (20:27)
[2021-02-14] MEDS: PANTOprazole 40 MG TAB PO SCH (20:27)
[2021-02-15] MEDS ORDERED: CARBOHYDRATES FOR HYPOGLYCEMIA PO PRN (02:45)
[2021-02-15] MEDS ORDERED: GLUCOSE 40% GEL 15 GM TUBE PO PRN (02:45)
[2021-02-15] MEDS ORDERED: GLUCAGON FOR INJ 1 MG VIAL IM PRN (02:45)
[2021-02-15] MEDS ORDERED: GLUCOSE 10 TABS/TUBE PO PRN (02:45)
[2021-02-15] MEDS ORDERED: DEXTROSE 50% 50 ML SYRINGE IV PRN (02:45)
[2021-02-15] MEDS ORDERED: SODIUM CHLORIDE 0.9% 1000ML 1,000 ML IV PRN (07:00)
[2021-02-15] MEDS ORDERED: HEPARIN SOD (PORCINE) 1000 UNIT/ML IV ONE (07:00)
[2021-02-15] MEDS ORDERED: EPOETIN ALFA 10,000 UNITS/ML VIAL IV ONE (07:00)
[2021-02-15] MEDS: buPROPion SR 100 MG TABCR PO SCH (08:17)
[2021-02-15] MEDS: ATORVASTATIN 10 MG TAB PO SCH (08:17)
[2021-02-15] MEDS: carvediloL 25 MG TAB PO SCH ×2 (08:17→17:50)
[2021-02-15] MEDS: SERTRALINE HCL 100 MG TABLET PO SCH (08:17)
[2021-02-15] MEDS: CHOLECALCIFEROL 1,000 UNITS 25 MCG TAB PO SCH (08:17)
[2021-02-15] MEDS: LOSARTAN POTASSIUM 50 MG TAB PO SCH (08:17)
[2021-02-15] MEDS: PANTOprazole 40 MG TAB PO SCH ×2 (08:17→21:29)
[2021-02-15] MEDS: amLODIPine BESYLATE 5 MG TAB PO SCH (08:17)
[2021-02-15] MEDS ORDERED: INSULIN GLARGINE SOLOSTAR 100 UNITS/ML 3 ML PEN SQ SCH (09:00)
[2021-02-15] MEDS: INSULIN HUMAN REGULAR SC SCH ×4 (12:14→18:06)
--- NOTE | 2021-02-15 12:22 | Gastroenterology Progress Note ---
Date of Service February 15, 2021 Assessment & Plan (1) Cyclical vomiting: Plan: See below (2) Nausea: Plan: 50 y/o male with history of gastroparesis, T1DM, ESRD on dialysis, underlying depression, admitted with nausea, vomiting. Overnight, pt seems improved and tolerated breakfast/lunch today. On exam abd soft, nontender. He had a formed BM yesterday; he's feeling better overall. His GI symptoms may be multifactorial given his multiple co-morbidities and polypharmacy. - Would recommend consider stopping sertraline, Seroquel and lorazepam as these can potentially contribute to his symptoms - Can advance to low-residue diet. This was reviewed with the pt - he should avoid high-fat, high-fiber foods as well as carbonated beverages as these can promote n/v; recommend 6 small meals per day - BSG is > 300 today, would continue to optimize glucose control Please call with any acute changes, questions or concerns. Please see addendum below with additional recommendation from my supervising physician. Admission and Anticipated Discharge Date Admission Date: February 14, 2021 Supervising Physician Co-Signing Physician Notes I saw and evaluated the patient. He notes that he is feeling much better today. With regard to the patient's nausea I suspect this is multifactorial as he is on several medications that could certainly contribute to the symptoms. Recommendations Consider discontinuation of his SSRI and Seroquel low residue diet please call with any questions or concerns GI to sign off Subjective Patient seen and examined, chart reviewed. No acute events overnight. Pt feeling improved; tolerated banana for breakfast, then for lunch had a turkey sandwich and some melon; also drank 2 cans of soda. No current n/v, abd pain. Bowels move yesterday, loose. No melena, hematochezia. Review of Systems Constitutional: no fever, no chills and no anorexia Eyes: no icterus Respiratory: no cough, no dyspnea and no wheezing Cardiovascular: no chest pain, no palpitations and no edema Gastrointestinal: as per HPI Integumentary: no rash and no lesions Physical Exam Constitutional: WD/WN, vitals as above in no acute distress, + chronically ill Eyes: PERRL, conjunctivae normal, anicteric sclerae Neck: trachea midline, no thyromegaly Respiratory: normal respiratory effort, lungs clear to auscultation Left chest tube noted Cardiovascular: RRR, no murmur, no edema Gastrointestinal (Abdomen): normal bowel sounds, soft, nontender, no hepatosplenomegaly nondistended Skin: no rashes, warm and dry Psychiatric: A+Ox3, euthymic affect Results & Data ([place]) Vital Signs (Past 12 Hours) Vital Signs Temp Pulse Resp BP Pulse Ox 02/15/21 08:00 76 02/15/21 04:32 36.8 C 68 15 130/63 96 02/15/21 00:32 67 15 128/68 96 Laboratory Results 02/15/21 02/15/21 02/15/21 Range/Units 11:49 02:53 02:36 POC Glucose 328 H* 87 42 L* (70-99) mg/dl Nasal Screen MRSA (PCR) (Negative) 02/14/21 02/14/21 02/14/21 Range/Units Unknown 20:21 16:36 POC Glucose 151 H 296 H (70-99) mg/dl Nasal Screen MRSA (PCR) Negative (Negative) Diagnostic Findings CXR 02/14/21: 1. Possible minimal left pleural effusion or atelectasis. Left chest tube is in place. The rest of findings as above.
--- NOTE | 2021-02-15 12:28 | Pharmacy Report ---
Pharmacy Glycemic Short Note 2 - Date of Service February 15, 2021 - Glycemic Short BSG Results (Last 24 hours): 02/14/21 02/14/21 02/15/21 16:36 20:21 02:36 POC Glucose 296 H 151 H 42 L* 02/15/21 02/15/21 02:53 11:49 POC Glucose 87 328 H* OUTPATIENT ANTIDIABETIC REGIMEN: * Lantus 12 units SQ AM * NovoLog AC per CF = 30 and CR = 10 ( ~5 units SQ TIDM) * A1c = unreliable secondary to ESRD ASSESSMENT: 02/15 * Severe hypoglycemia noted overnight and then severe hyperglycemia at lunch. This, however, is not abnormal for Mr. De Los Santos. * Previous admissions noted in which both prandial and basal coverage was provided with regular insulin q6 - this allows for titration of regimen on a much more frequent basis, and was associated with potentially fewer severe high's and low's. Regular insulin also utilized for correctional. Will attempt this regimen again for this admission 02/14 * 50yo T1DM male known well to pharmacy from previous admissions/glycemic consults * Pt with a history of very brittle DM - frequent BSG swings which can be difficult to control since they tend to occur without a direct cause. * Will initiate SQ basal bolus insulin regimen similar to previous admissions and titrate based on BSG trends. PLAN FOR INPATIENT GLYCEMIC CONTROL: * Basal insulin * Provided as scheduled regular insulin q6h at 2-4 units, depending on BSG. This also covers some prandial needs as well. * Bolus insulin * Goal Range: Low 110 mg/dL - High 150 mg/dL * Correction Factor: 30 mg/dL/unit * Nutritional / Prandial insulin per carb ratio of 1 unit per 9 grams CHO consumed PLAN FOR DISCHARGE: * Pt to continue f/w with [facility] endocrinology office.
--- NOTE | 2021-02-15 13:38 | Palliative Care Consultation ---
Date of Consultation February 15, 2021 Assessment & Plan (1) Palliative care encounter: This is an unfortunate 50 year old gentleman who presented to the [facility] with intractable vomiting, likely related to chronic gastroparesis. Additional PMH includes: CKD stage V dependent on dialysis on Mondays, Wednesdays, and Fridays. Additionally he has nonischemic cardiomyopathy, CAD, pleural effusions, history of pulmonary embolism, HTN and uncontrolled DM2. A few weeks ago he developed pleural effusions and a pleur-x has been placed and is drained routinely. He was apparently to have an appointment in outpatient palliative medicine, but ended up being admitted prior to the encounter. Palliative Medicine was consulted to discuss overall goals of care. I met with Jorge Alberto while he was on the 4th floor receiving and tolerating hemodialysis. He was resting when I arrived but worke easily for conversation. He was AAOx3 and able to fully participate in his goals of care conversation. I asked him to describe his typical days. He is able to do his own ADL's independently. He said that he does, at times, use a can to help him walk. He said his non-dialysis days are filled with provider appointments (Nephro, GI, cards, pulm, and PCP). He lives at home with his mother and father and has two children who live in [place]; Galen who is 18 and Mere who turns 16 next week. He said that right now in life watching game shows with his parents brings him valeriano. He explained that he is on a kidney transplant list and has been for the last two years. Receiving a kidney transplant is his goal and he would like to remain a full code if that means that he would possibly still have a chance to be a recipient. He is willing to continue convesration with outpatient palliative medicine. Palliative Medicine will follow. (2) Nausea: Chronic related to gastroperesis. He does follow GI outpatient. No issues since admitted. Per GI, could consider discontinuing Reglan, Seroquel, and Compazine if nausea persists. (3) Pleural effusion: Pleur-x placed 3-4 weeks ago and is drained at home by home health. No pain at insertion site. (4) ESRD (end stage renal disease): Receives HD M/W/F. Tolerates it generally well. (5) Peripheral neuropathy: related to uncontrolled diabetes. suggested Neurontin trial. He declined at this time. (6) Anxiety: Does have Ativan 0.5 mg Q12 PRN ordered. Has not used any doses while admitted. History of Present Illness Reason for Consultation: Goals of care Requesting Physician: Dr. Mckeon Attending Physician: Sami Mckeon History of Present Illness This is an unfortunate 50 year old gentleman who presented to the [facility] with intractable vomiting, likely related to chronic gastroparesis. Additional PMH includes: CKD stage V dependent on dialysis on Mondays, Wednesdays, and . Additionally he has nonischemic cardiomyopathy, CAD, pleural effusions, history of pulmonary embolism, HTN and uncontrolled DM2. A few weeks ago he developed pleural effusions and a pleur-x has been placed and is drained routinely. He lives at home with his mother and father and has two children who live in [place]. He was apparently to have an appointment in outpatient palliative medicine, but ended up being admitted prior to the encounter. Palliative Medicine was consulted to discuss overall goals of care. Please see A/P for further details. Thanks for involving palliative medicine with this individual. Allergies Allergy/AdvReac Type Severity Reaction Status Date / Time shellfish derived Allergy Severe anaphylaxis Verified 02/13/21 15:11 codeine Allergy Intermediate Hives Verified 02/13/21 15:11 promethazine Allergy Intermediate itchy/hives Verified 02/13/21 15:11 Home Medications Medication Instructions Recorded Confirmed Type bupropion HCl 100 mg tablet,12 hr 100 mg PO QAM ea 04/14/19 02/14/21 History sustained-release melatonin 3 mg tablet 3 mg PO HS tab 09/05/20 02/14/21 History acetaminophen 325 mg capsule 650 mg PO Q4H PRN cap 09/28/20 02/14/21 History carvedilol 25 mg tablet 25 mg PO BIDM tab 10/01/20 02/14/21 History ondansetron HCl 4 mg tablet 4 mg PO Q4H PRN 10/01/20 02/14/21 History (Zofran) bisacodyl 10 mg rectal suppository 10 mg [place] DAILY PRN 11/29/20 02/14/21 History losartan 100 mg tablet 100 mg PO DAILY 11/29/20 02/14/21 History polyethylene glycol 3350 17 17 g PO QDL PRN 11/29/20 02/14/21 History gram/dose oral powder (Miralax) amlodipine 5 mg tablet 5 mg PO DAILY #90 tab 12/07/20 02/14/21 Rx sertraline 100 mg tablet 100 mg PO QAM #90 tab 12/11/20 02/14/21 Rx insulin aspart U-100 100 unit/mL 5 unit SUBCUT TIDM PRN 12/21/20 02/14/21 History (3 mL) subcutaneous pen (Novolog Flexpen U-100 Insulin aspart) insulin glargine 100 unit/mL (3 12 unit SUBCUT QAM ml 12/21/20 02/14/21 History mL) subcutaneous pen (Basaglar KwikPen U-100 Insulin) metoclopramide HCl 5 mg tablet 5 mg PO AC PRN #30 tab 01/07/21 02/14/21 Rx quetiapine 25 mg tablet (Seroquel) 25 mg PO HS #30 tab 01/07/21 02/14/21 Rx cholecalciferol (vitamin D3) 50 50 mcg PO DAILY #30 cap 01/17/21 02/14/21 Rx mcg (2,000 unit) capsule (Vitamin D3) lorazepam 0.5 mg tablet 0.5 mg PO Q12 PRN #60 tab 01/18/21 02/14/21 Rx atorvastatin 10 mg tablet 10 mg PO DAILY #90 tab 02/12/21 02/14/21 Rx pantoprazole 40 mg tablet,delayed 40 mg PO BID #60 tab 02/12/21 02/14/21 Rx release warfarin 5 mg tablet See Rx Instructions PO DAILY #120 02/13/21 02/14/21 Rx tab Patient History Medical History (Updated 02/15/21 @ 22:27 by RADHIKA Persaud) Anemia Anemia of chronic disease Anxiety AV fistula left arm Bilateral calf pain CAD (coronary artery disease) mild, non-obstructive CAD per 10/2018 cardiac cath> [facility] Depression Diabetes Diabetic retinopathy Dialysis patient Dialysis patient DKA (diabetic ketoacidoses) Esophagitis ESRD (end stage renal disease) M,W,F (Follows with Dr. Lor Guadalupe; [facility]) ESRD (end stage renal disease) on dialysis ESRD on dialysis Gastroparesis GERD (gastroesophageal reflux disease) Hematemesis Hypertension Hypertension Intractable vomiting with nausea Kidney stones Lumbar compression fracture Lumbar radiculopathy Nausea & vomiting Palliative care encounter Peripheral neuropathy Pleural effusion Pleural effusion Retinopathy due to secondary diabetes Severe protein-calorie malnutrition Vomiting Surgical History H/O shoulder surgery RIGHT History of appendectomy History of cardiac cath 10/2018= no stents, no obstructive disease (at [facility]) History of cataract surgery History of esophagogastroduodenoscopy (EGD) (~03/08/20) History of hip surgery left HIP ARTHROSCOPY History of lithotripsy History of open reduction and internal fixation (ORIF) procedure right hip Nausea and vomiting after administration of anesthetic agent Permanent central venous catheter in place Permacath has been removed S/P arteriovenous (AV) fistula creation Family History Grandfather Myocardial infarction Grandfather (Maternal) Family history of diabetes mellitus Uncle Myocardial infarction Other No family history of adverse response to anesthesia Denies family history of Colon cancer Ovarian cancer Prostate cancer Breast cancer Social History Smoking Status: Never smoker Second Hand Exposure: No; Do You Dip or Chew Tobacco: No; Hx Alcohol Use: No Hx Substance Use: No Preferred Language: Algerian Communication Ability: Effective Visual Impairment: No Limitations Hearing Ability: Normal Municipal Clerk Required: No Beliefs That Will Affect Care: None marital status: Current Living Situation: Parent Current Living Situation Comment: lives with parents. current occupational status: disabled How many Children do You have: 2 Other Information That Helps Us Care for You: No Feels Safe at Home: Yes Safety Concerns: Feels Safe At This Time Childhood Exposure to Second-Hand Smoke: Yes Dental Care, Regularly: No Physical Activity Frequency: 1-2 Times per Week Seatbelt Use: always Sunscreen Use: No Assistive Devices: None Review of Systems Review of Systems: Lyons System Assessment Scale: Pain: 0/3 Nausea: 0/3 Tiredness: 1/3 SOB: 0/3 Palliative Performance Scale: 50% Physical Exam Constitutional: cooperative and comfortable Respiratory: normal respiratory effort and + cough; no respiratory distress Auscultation: + diminished lung sounds pleur-x Cardiovascular: Rate/Rhythm: regular rate and regular rhythm Heart Sounds: normal S1 and normal S2 Extremities: + edema and + AV fistula Gastrointestinal (Abdomen): Inspection/Auscultation: abdomen normal to inspection Percussion/Palpation: abdomen soft Skin: normal turgor Psychiatric: Orientation: alert and oriented x 3 Insight: good insight Judgement: good judgement Results & Data ([facility]) Vital Signs (Past 12 Hours) Vital Signs Temp Pulse Pulse Resp BP BP Pulse Ox 02/15/21 12:45 37 C 75 14 168/73 H 98 02/15/21 08:00 76 02/15/21 04:32 36.8 C 68 15 130/63 96 PG Care Time/CCT Total # of Minutes Spent Total Time Spent with Patient: Total time spent is greater than 50% in coordination of care (as documented) at patient's floor/unit and/or counseling patient: 70 minutes with > 50% of that time spent assessing the patient, discussing goals of care, addressing symptom management needs, and collaborating with IDT Coding Level of Care Code 20420 Initial Inpt Care Lvl 3 Diagnoses Palliative care encounter Z51.5 Nausea R11.0 Pleural effusion J90 ESRD (end stage renal disease) N18.6 Peripheral neuropathy G62.9 Anxiety F41.9 Time Spent (min) 70
--- NOTE | 2021-02-15 15:04 | Dialysis Progress Note ---
Date of Service February 15, 2021 Assessment & Plan Admission and Anticipated Discharge Date Admission Date: February 14, 2021 Subjective Seen in dialysis. Doing fine. BP, AVF, Blood flow all good. Tolerating well so far PHYSICAL EXAMINATION: GENERAL: A middle-aged white male who appears to be breathing normally. No respiratory distress. HEENT: Mucous membrane is moist. NECK: Supple. No jugular venous distention. CHEST: Bilaterally clear to auscultation. CARDIOVASCULAR: S1, S2, regular. ABDOMEN: Soft, nontender. EXTREMITIES: Show no edema. AV fistula appears to have good bruit and thrill. LABORATORY TEST: Reviewed in detail. CHEST X-RAY: Minimal left pleural effusion, left chest tube is in place. ASSESSMENT AND PLAN: A 50-year-old male with end-stage renal disease secondary to longstanding diabetes, on chronic hemodialysis Thursday, Thursday, Thursday, admitted with intractable nausea, vomiting and dizziness. I have been consulted for dialysis management. 1. End-stage renal disease: Conitnue dialysis as Rxed . tolerating fine. 3 hours 30 minutes on a 2K bath and take about 1-1.5 kilo fluid. He has had recurrent problem with left pleural effusion and has needed multiple hospital admissions. He still has the chest tube in place. Dialysis has not been successful in resolving the pleural effusion and as a result, he then had a chest tube placed. 2. Intractable nausea and vomiting: Unfortunately, this has been ongoing for years and appears to be secondary to severe gastroparesis and has required many hospital admissions within the last few months at various hospitals. Defer to gastrointestinal consultants. 3. Hypertension: It is worth noting the patient always has high supine blood pressure, but his standing blood pressure can drop significantly and I would not aggressively treat his hypertension based on supine blood pressure. Results & Data ([facility]) Vital Signs (Past 12 Hours) Vital Signs Temp Pulse Pulse Resp BP BP Pulse Ox 02/15/21 12:45 37 C 75 14 168/73 H 98 02/15/21 08:00 76 02/15/21 04:32 36.8 C 68 15 130/63 96
[2021-02-15] MEDS: HEPARIN SOD (PORCINE) 1000 UNIT/ML IV SCH (15:44)
[2021-02-15] MEDS ORDERED: WARFARIN SOD 2.5 MG TAB PO SCH (16:00)
--- NOTE | 2021-02-15 21:01 | Hospitalist Progress Note ---
Date of Service February 15, 2021 Assessment & Plan (1) Cyclical vomiting: Plan: Assessment & Plan (1) Cyclic vomiting syndrome: Plan: 1. Cyclic Vomiting Syndrome -Patient returns with above problem. restarted diet. nausea has improved. will consult psych for input on psych meds that could control his anxiety yet not worsen his nausea. -FAMILY INTERESTED IN PALLIATIVE CARE - GI consult worsening gastroparesis 2 Hypertension: Continue other medications as ordered, including carvedilol 25 mg twice daily losartan 100 mg daily amlodipine 5 mg daily 3 Dialysis patient: Hemodialysis Thursday nephro consult (4) Nonischemic cardiomyopathy: Continue cardiac regimen including carvedilol as noted last echo EF of 40 to 45%, increased RV presure, mod global hypokinesis of L ventricle (5) CAD (coronary artery disease): Cardiac medications as noted above along with atorvastatin 10 mg daily (6) Pleural effusion: recurrent Left-sided pleural effusion, pulm consult for evaluation of chemical pleurodesis (7) Pulmonary embolism hx continue anticoagulation with warfarin 8) anx/dep cont. home meds. 9, IDDM - glargine 12 u AM - SSI - hypoglycemia due to vomiting/decreased PO intake while taking insulin dvt ppx: on warfarin fen/gi: NPO dispo: med/surg code status: full code (2) Nausea & vomiting: (3) Hypertensive urgency: Admission and Anticipated Discharge Date Admission Date: February 14, 2021 Subjective Patient reports feeling better today. He has no new complaints. Review of Systems Review of Systems: All systems reviewed & are unremarkable except as noted in HPI & below Physical Exam Physical Exam: Constitutional: in no apparent distress,listless appearing Eyes: EOMI, pupils equal and reactive bilaterally, no scleral icterus Cardiac: RRR, no murmurs, gallops or rubs. Normal S1, S2 Pulm: CTA BL, no wheezes, rhonchi, crackles or rubs, moving air well throughout both lungs Abd: soft, nontender, nondistended, normal bowel sounds, no rebound or guarding Extremities: 2+ peripheral pulses, no edema Neuro: no focal deficits, moving all 4 limbs, A&Ox3 Results & Data Results & Data ([facility]) Vital Signs (Past 12 Hours) Vital Signs Temp Pulse Pulse Pulse Resp BP BP 02/15/21 20:21 37.2 C 79 17 187/70 H 02/15/21 18:00 79 02/15/21 17:52 36.7 C 79 19 191/70 H 02/15/21 16:00 77 148/69 H 02/15/21 15:40 76 162/77 H 02/15/21 15:20 78 150/73 H 02/15/21 15:00 75 157/78 H 02/15/21 14:40 76 138/71 02/15/21 14:20 75 137/65 02/15/21 14:00 75 143/73 H 02/15/21 13:46 75 149/75 H 02/15/21 13:38 36.6 C 77 02/15/21 12:45 37 C 75 14 168/73 H Pulse Ox 02/15/21 20:21 96 02/15/21 18:00 02/15/21 17:52 97 02/15/21 16:00 02/15/21 15:40 02/15/21 15:20 02/15/21 15:00 02/15/21 14:40 02/15/21 14:20 02/15/21 14:00 02/15/21 13:46 02/15/21 13:38 02/15/21 12:45 98 PG Care Time/CCT Total # of Minutes Spent Total Time Spent with Patient: Total time spent is greater than 50% in coordination of care (as documented) at patient's floor/unit and/or counseling patient: Coding Level of Care Code 89575 Subseq Hosp Care Lvl 2 Diagnoses Cyclical vomiting R11.15 Nausea & vomiting R11.2 Vomiting Intractability: intractable Vomiting type: unspecified Hypertensive urgency I16.0 Time Spent (min) 25 (1) Nausea & vomiting Vomiting Intractability: intractable Vomiting type: unspecified Qualified Code(s): R11.2 - Nausea with vomiting, unspecified
[2021-02-15] MEDS: QUEtiapine FUMARATE 25 MG TABLET PO SCH (21:29)
[2021-02-15] MEDS: MELATONIN 3 MG TAB PO SCH (21:29)
[2021-02-16] MEDS ORDERED: INSULIN HUMAN REGULAR SC STA (00:52)
[2021-02-16] MEDS: INSULIN HUMAN REGULAR SC SCH ×5 (00:54→20:53)
[2021-02-16 00:59] LABS: Beta-Hydroxybutyrate 9.23 mg/dl (0.2-2.81)
[2021-02-16] MEDS ORDERED: INSULIN HUMAN REGULAR PER UNIT 5 UNITS in SYRINGE 4.95 ML IV ONE (01:00)
[2021-02-16 03:28] LABS: Beta-Hydroxybutyrate 1.94 mg/dl (0.2-2.81)
[2021-02-16] MEDS ORDERED: INSULIN REGULAR 250 UNITS in SODIUM CHLORIDE 0.9% 247.5 ML IV SCH (04:00)
[2021-02-16] MEDS ORDERED: INSULIN HUMAN REGULAR IV BOLUS 2 UNITS in SYRINGE 0 ML IV ONE (04:00)
[2021-02-16 04:45] LABS: Albumin Globulin Ratio 0.9 (0.9-2); Albumin Level 2.4 gm/dl (3.4-5.0); BUN Creatinine Ratio 5.3 (10-20); Bilirubin,Total 0.3 mg/dl (0.2-1); Calcium 6.8 mg/dl (8.5-10.1); Creatinine Clr Calc Pharmacy 19.7 ml/min; Est GFR (African American) 21.2 ml/min; Est GFR (Non-African American) 18.3 ml/min; Globulin 2.8 gm/dl (2.5-4.0); Potassium 3.7 mmol/L (3.5-5.1); Total Protein 5.2 gm/dl (6.4-8.2)
[2021-02-16] MEDS: ONDANSETRON 4 MG OD TAB PO PRN ×4 (07:19→23:51)
[2021-02-16] MEDS: METOCLOPRAMIDE HCL 5 MG TABLET PO PRN ×2 (08:56→16:43)
[2021-02-16] MEDS: ATORVASTATIN 10 MG TAB PO SCH (08:57)
[2021-02-16] MEDS: CHOLECALCIFEROL 1,000 UNITS 25 MCG TAB PO SCH (08:57)
[2021-02-16] MEDS: PANTOprazole 40 MG TAB PO SCH ×2 (08:57→20:52)
[2021-02-16] MEDS: amLODIPine BESYLATE 5 MG TAB PO SCH ×2 (08:57→21:53)
[2021-02-16] MEDS: SERTRALINE HCL 100 MG TABLET PO SCH (08:57)
[2021-02-16] MEDS: buPROPion SR 100 MG TABCR PO SCH (08:58)
[2021-02-16] MEDS: carvediloL 25 MG TAB PO SCH ×2 (08:58→16:44)
[2021-02-16] MEDS: LOSARTAN POTASSIUM 50 MG TAB PO SCH (08:58)
--- NOTE | 2021-02-16 09:39 | Pharmacy Report ---
Pharmacy Glycemic Short Note 2 - Date of Service February 16, 2021 - Glycemic Short BSG Results (Last 24 hours): 02/15/21 02/15/21 02/15/21 11:49 17:45 23:45 Glucose POC Glucose 328 H* 148 H > 600 H* 02/15/21 02/16/21 02/16/21 23:48 00:09 02:04 Glucose 682 H* POC Glucose > 600 H* > 600 H* 02/16/21 02/16/21 02/16/21 02:25 06:30 06:31 Glucose 643 H* POC Glucose 318 H* 309 H* 02/16/21 02/16/21 07:40 08:31 Glucose POC Glucose 203 H 164 H OUTPATIENT ANTIDIABETIC REGIMEN: * Lantus 12 units SQ AM * NovoLog AC per CF = 30 and CR = 10 ( ~5 units SQ TIDM) * A1c = unreliable secondary to ESRD ASSESSMENT: 02/16 * Patient with extreme hyperglycemia last night, blood sugars > 600mg/dl - d/t eating a ton of dinner (2 plates of pasta + 3 servings of ice cream), only covered with Q6 Regular insulin, no carb ratio d/t difficulty in managing his blood sugars in brittle type 1 with gastroparesis. * Insulin drip was started last night, now patient is euglycemic. * Will try changing patient to an intermediate acting basal insulin (NPH) on a scale and Regular insulin ACHS with a carb ratio for better glycemic control and avoiding need for insulin drip when patient jesse eats. * Also try NPH to avoid hypoglycemia, patient with hypoglycemia 02/15 AM after Lantus given for basal 02/14. * Patient currently very nauseous and not eating breakfast. 02/15 * Severe hypoglycemia noted overnight and then severe hyperglycemia at lunch. This, however, is not abnormal for Mr. De Los Santos. * Previous admissions noted in which both prandial and basal coverage was provided with regular insulin q6 - this allows for titration of regimen on a much more frequent basis, and was associated with potentially fewer severe high's and low's. Regular insulin also utilized for correctional. Will attempt this regimen again for this admission 02/14 * 50yo T1DM male known well to pharmacy from previous admissions/glycemic consults * Pt with a history of very brittle DM - frequent BSG swings which can be difficult to control since they tend to occur without a direct cause. * Will initiate SQ basal bolus insulin regimen similar to previous admissions and titrate based on BSG trends. PLAN FOR INPATIENT GLYCEMIC CONTROL: * Basal insulin * NPH BID with breakfast and dinner * 0 units BSG < 90 * 4 units BSG 90-140 * 6 units BSG > 140 * Bolus insulin * Goal Range: Low 120 mg/dL - High 150 mg/dL * Correction Factor: 35 mg/dL/unit * Nutritional / Prandial insulin per carb ratio of 1 unit per 10 grams CHO consumed PLAN FOR DISCHARGE: * Pt to continue f/w with [facility] endocrinology office.
[2021-02-16] MEDS: INSULIN HUMAN NPH SC SCH ×2 (10:06→16:48)
--- NOTE | 2021-02-16 16:03 | Psychiatric Consultation ---
Date of Consultation February 16, 2021 Impression / Recommendations Impression 50 yo male with a history of unspecified depression and anxiety, currently stable on psychiatric medications. I doubt major contributing factor to his gastroparesis given stable doses for years,other medical conditions, and lack of constipation. To minimize polypharm would hold Wellbutrin given tobacco 3 for 3 years. He reliably denies substance use but certainly would want to exclude pot hyperemesis syndrome, no tox screen in chart since 2019. (1) Depression: Depression Type: major depressive disorder Major depression recurrence: recurrent Active/Remission status: remission status unspecified Qualified Code(s): F33.9 - Major depressive disorder, recurrent, unspecified defer tox screen to primary team, I do not see celiac antibodies on chart/mentioned in Gi consult I reviewed, assume part of previous w/u. defer further adjustments in Zoloft or Seroquel to outpatient psychiatry team he will need to call for own appointment with [facility] as weekend and liaison cannot confirm f/u but GONZALES signed. Risk Factors Assessment Do You Have Access To A Gun?: No Psych History Identifying Data 50 yo male admit for cyclic vomiting syndrome, consult is by Dr. Mckeon for medication recommendations. Chief Complaint "mentally I'm good, just physically I get frustrated as I've dealt with this before". History of Present Illness chart reviewed back to 2018, hx of gastroparesis (at that time on Valium, Relgan) and essentially SSRI and Wellbutrin. Doesn't take Ativan often at home per patient. Does feel his anxiety gets worse in the hospital. Sometimes has difficulty falling asleep. Denies SI. score only 3 on PHQ-9 (scoring 1 for hopelessness, sleep concerns, and fatigue). Relates that Wellbutrin was primarily for cessation of smokeless tobacco which he hasn't touched for 3 years. He denies constipation related to his psychiatric medications and finds Seroquel extremely helpful and unrelated to his current condition. Past Psychiatric History Previous Psych History: [facility], last appt in November per patient (weekend so no records) Outpatient Services: no therapy Previous Psych Admissions: none Do You Have Access To A Gun?: No History of Previous Suicide Attempt: No Past Medication Trials: Lexapro, Remeron Allergies Allergy/AdvReac Type Severity Reaction Status Date / Time shellfish derived Allergy Severe anaphylaxis Verified 02/13/21 15:11 codeine Allergy Intermediate Hives Verified 02/13/21 15:11 promethazine Allergy Intermediate itchy/hives Verified 02/13/21 15:11 Home Medications Medication Instructions Recorded Confirmed Type bupropion HCl 100 mg tablet,12 hr 100 mg PO QAM ea 04/14/19 02/14/21 History sustained-release melatonin 3 mg tablet 3 mg PO HS tab 09/05/20 02/14/21 History acetaminophen 325 mg capsule 650 mg PO Q4H PRN cap 09/28/20 02/14/21 History carvedilol 25 mg tablet 25 mg PO BIDM tab 10/01/20 02/14/21 History ondansetron HCl 4 mg tablet 4 mg PO Q4H PRN 10/01/20 02/14/21 History (Zofran) bisacodyl 10 mg rectal suppository 10 mg ND DAILY PRN 11/29/20 02/14/21 History losartan 100 mg tablet 100 mg PO DAILY 11/29/20 02/14/21 History polyethylene glycol 3350 17 17 g PO QDL PRN 11/29/20 02/14/21 History gram/dose oral powder (Miralax) amlodipine 5 mg tablet 5 mg PO DAILY #90 tab 12/07/20 02/14/21 Rx sertraline 100 mg tablet 100 mg PO QAM #90 tab 12/11/20 02/14/21 Rx insulin aspart U-100 100 unit/mL 5 unit SUBCUT TIDM PRN 12/21/20 02/14/21 History (3 mL) subcutaneous pen (Novolog Flexpen U-100 Insulin aspart) insulin glargine 100 unit/mL (3 12 unit SUBCUT QAM ml 12/21/20 02/14/21 History mL) subcutaneous pen (Basaglar KwikPen U-100 Insulin) metoclopramide HCl 5 mg tablet 5 mg PO AC PRN #30 tab 01/07/21 02/14/21 Rx quetiapine 25 mg tablet (Seroquel) 25 mg PO HS #30 tab 01/07/21 02/14/21 Rx cholecalciferol (vitamin D3) 50 50 mcg PO DAILY #30 cap 01/17/21 02/14/21 Rx mcg (2,000 unit) capsule (Vitamin D3) lorazepam 0.5 mg tablet 0.5 mg PO Q12 PRN #60 tab 01/18/21 02/14/21 Rx atorvastatin 10 mg tablet 10 mg PO DAILY #90 tab 02/12/21 02/14/21 Rx pantoprazole 40 mg tablet,delayed 40 mg PO BID #60 tab 02/12/21 02/14/21 Rx release warfarin 5 mg tablet See Rx Instructions PO DAILY #120 02/13/21 02/14/21 Rx tab Family History mom anxiety Substance Abuse History denies MJ use Personal History Highest Grade Completed: College Employment Status: Disabled Beliefs That Will Affect Care: None History of Legal Problems: denies Psychological Trauma History Comment: denied Patient History Medical History Anemia Anemia of chronic disease Anxiety AV fistula left arm Bilateral calf pain CAD (coronary artery disease) mild, non-obstructive CAD per 10/2018 cardiac cath> [facility] Depression Diabetes Diabetic retinopathy Dialysis patient Dialysis patient DKA (diabetic ketoacidoses) Esophagitis ESRD (end stage renal disease) M,W,F (Follows with Dr. Lor Guadalupe; [facility]) ESRD (end stage renal disease) on dialysis ESRD on dialysis Gastroparesis GERD (gastroesophageal reflux disease) Hematemesis Hypertension Hypertension Intractable vomiting with nausea Kidney stones Lumbar compression fracture Lumbar radiculopathy Nausea & vomiting Palliative care encounter Peripheral neuropathy Pleural effusion Pleural effusion Retinopathy due to secondary diabetes Severe protein-calorie malnutrition Vomiting Surgical History H/O shoulder surgery RIGHT History of appendectomy History of cardiac cath 10/2018= no stents, no obstructive disease (at [facility]) History of cataract surgery History of esophagogastroduodenoscopy (EGD) (~03/08/20) History of hip surgery left HIP ARTHROSCOPY History of lithotripsy History of open reduction and internal fixation (ORIF) procedure right hip Nausea and vomiting after administration of anesthetic agent Permanent central venous catheter in place Permacath has been removed S/P arteriovenous (AV) fistula creation Family History Grandfather Myocardial infarction Grandfather (Maternal) Family history of diabetes mellitus Uncle Myocardial infarction Other No family history of adverse response to anesthesia Denies family history of Colon cancer Ovarian cancer Prostate cancer Breast cancer Social History Smoking Status: Never smoker Second Hand Exposure: No; Do You Dip or Chew Tobacco: No; Hx Alcohol Use: No Hx Substance Use: No Preferred Language: Senegalese Communication Ability: Effective Visual Impairment: No Limitations Hearing Ability: Normal Lug Breaker And Wire Puller Required: No Beliefs That Will Affect Care: None marital status: Current Living Situation: Parent Current Living Situation Comment: lives with parents. current occupational status: disabled How many Children do You have: 2 Other Information That Helps Us Care for You: No Feels Safe at Home: Yes Safety Concerns: Feels Safe At This Time Childhood Exposure to Second-Hand Smoke: Yes Dental Care, Regularly: No Physical Activity Frequency: 1-2 Times per Week Seatbelt Use: always Sunscreen Use: No Assistive Devices: None Physical Exam Psychiatric: Orientation: alert and oriented x 3 Apperance: appropriately dressed and appropriately groomed Eye Contact: good eye contact Motor Behavior: no abnormal motor movements Speech: normal rate/rhythm/volume of speech Affect: + constricted affect (feeling nauseated during interview) mood is "fine for what's going on" Thought Process: goal directed thought process Thought Content: reality based without delusions Suicidal Thoughts: denies suicidal thoughts Homicidal Thoughts: denies homicidal thoughts Hallucinations: no auditory hallucinations and no visual hallucinations Cognition: attention grossly intact and language grossly intact Estimated Intelligence: consistent with education level Insight: + fair insight Judgement: + fair judgement Vital Signs (Past 24 Hours): Last Vital Signs Temp 36.8 C 02/16/21 12:02 Pulse 75 02/16/21 12:02 Resp 17 02/16/21 07:54 BP 187/77 H 02/16/21 12:02 Pulse Ox 98 02/16/21 12:02 Review of Systems All systems reviewed & are unremarkable except as noted in HPI & below Results & Data (PSY) Laboratory Results 02/16/21 02/16/21 02/16/21 Range/Units 11:52 08:31 07:40 Sodium (136-145) mmol/L Potassium (3.5-5.1) mmol/L Chloride (98-107) mmol/L Carbon Dioxide (21-32) mmol/L Anion Gap (3-11) BUN (7-18) mg/dl Creatinine (0.6-1.4) mg/dl Est Cr Clr Drug Dosing ml/min Est GFR ( Amer) ml/min Est GFR (Non-Af Amer) ml/min BUN/Creatinine Ratio (10-20) Glucose (70-99) mg/dl POC Glucose 176 H 164 H 203 H (70-99) mg/dl Calcium (8.5-10.1) mg/dl Total Bilirubin (0.2-1) mg/dl AST (15-37) U/L ALT (12-78) U/L Alkaline Phosphatase (45-117) U/L Total Protein (6.4-8.2) gm/dl Albumin (3.4-5.0) gm/dl Globulin (2.5-4.0) gm/dl Albumin/Globulin Ratio (0.9-2) Beta-Hydroxybutyric Acd (0.2-2.81) mg/dl 02/16/21 02/16/21 02/16/21 Range/Units 06:31 06:30 02:25 Sodium 132 L (136-145) mmol/L Potassium 3.7 (3.5-5.1) mmol/L Chloride 97 L (98-107) mmol/L Carbon Dioxide 24 (21-32) mmol/L Anion Gap 11.0 (3-11) BUN 19 H (7-18) mg/dl Creatinine 3.65 H D (0.6-1.4) mg/dl Est Cr Clr Drug Dosing 19.7 ml/min Est GFR ( Amer) 21.2 ml/min Est GFR (Non-Af Amer) 18.3 ml/min BUN/Creatinine Ratio 5.3 L (10-20) Glucose 643 H* (70-99) mg/dl POC Glucose 309 H* 318 H* (70-99) mg/dl Calcium 6.8 L (8.5-10.1) mg/dl Total Bilirubin 0.3 (0.2-1) mg/dl AST 38 H (15-37) U/L ALT 50 (12-78) U/L Alkaline Phosphatase 133 H (45-117) U/L Total Protein 5.2 L (6.4-8.2) gm/dl Albumin 2.4 L (3.4-5.0) gm/dl Globulin 2.8 (2.5-4.0) gm/dl Albumin/Globulin Ratio 0.9 (0.9-2) Beta-Hydroxybutyric Acd 1.94 (0.2-2.81) mg/dl 02/16/21 02/16/21 02/15/21 Range/Units 02:04 00:09 23:48 Sodium (136-145) mmol/L Potassium (3.5-5.1) mmol/L Chloride (98-107) mmol/L Carbon Dioxide (21-32) mmol/L Anion Gap (3-11) BUN (7-18) mg/dl Creatinine (0.6-1.4) mg/dl Est Cr Clr Drug Dosing ml/min Est GFR ( Amer) ml/min Est GFR (Non-Af Amer) ml/min BUN/Creatinine Ratio (10-20) Glucose 682 H* (70-99) mg/dl POC Glucose > 600 H* > 600 H* (70-99) mg/dl Calcium (8.5-10.1) mg/dl Total Bilirubin (0.2-1) mg/dl AST (15-37) U/L ALT (12-78) U/L Alkaline Phosphatase (45-117) U/L Total Protein (6.4-8.2) gm/dl Albumin (3.4-5.0) gm/dl Globulin (2.5-4.0) gm/dl Albumin/Globulin Ratio (0.9-2) Beta-Hydroxybutyric Acd 9.23 H (0.2-2.81) mg/dl 02/15/21 02/15/21 Range/Units 23:45 17:45 Sodium (136-145) mmol/L Potassium (3.5-5.1) mmol/L Chloride (98-107) mmol/L Carbon Dioxide (21-32) mmol/L Anion Gap (3-11) BUN (7-18) mg/dl Creatinine (0.6-1.4) mg/dl Est Cr Clr Drug Dosing ml/min Est GFR ( Amer) ml/min Est GFR (Non-Af Amer) ml/min BUN/Creatinine Ratio (10-20) Glucose (70-99) mg/dl POC Glucose > 600 H* 148 H (70-99) mg/dl Calcium (8.5-10.1) mg/dl Total Bilirubin (0.2-1) mg/dl AST (15-37) U/L ALT (12-78) U/L Alkaline Phosphatase (45-117) U/L Total Protein (6.4-8.2) gm/dl Albumin (3.4-5.0) gm/dl Globulin (2.5-4.0) gm/dl Albumin/Globulin Ratio (0.9-2) Beta-Hydroxybutyric Acd (0.2-2.81) mg/dl Medications Administered Amlodipine Besylate (Amlodipine Besylate 5 Mg Tab) 5 mg PO DAILY [facility] Stop: 03/17/21 08:59 Last Admin: 02/16/21 08:57 Dose: 5 mg Documented by: [id number] Admin: 02/15/21 08:17 Dose: 5 mg Documented by: [id number] Atorvastatin Calcium (Atorvastatin 10 Mg Tab) 10 mg PO DAILY [facility] Stop: 03/17/21 08:59 Last Admin: 02/16/21 08:57 Dose: 10 mg Documented by: [id number] Admin: 02/15/21 08:17 Dose: 10 mg Documented by: [id number] Bupropion HCl (Bupropion Sr 100 Mg Tabcr) 100 mg PO QAM [facility] Stop: 03/17/21 08:59 Last Admin: 02/16/21 08:58 Dose: 100 mg Documented by: [id number] Admin: 02/15/21 08:17 Dose: 100 mg Documented by: [id number] Carvedilol (Carvedilol 25 Mg Tab) 25 mg PO BIDM [facility] Stop: 03/16/21 16:59 Last Admin: 02/16/21 08:58 Dose: 25 mg Documented by: [id number] Admin: 02/15/21 17:50 Dose: 25 mg Documented by: [id number] Admin: 02/15/21 08:17 Dose: 25 mg Documented by: [id number] Admin: 02/14/21 16:55 Dose: 25 mg Documented by: [id number] Insulin Human NPH (Insulin Human Nph) 0 units SC BIDM [facility]; Protocol Stop: 03/18/21 09:29 Last Admin: 02/16/21 10:06 Dose: 6 units Documented by: [id number] Cosigned by: [id number] Insulin Human Regular (Insulin Human Regular) 0 units SC ACHS [facility]; Protocol Stop: 03/18/21 11:29 Last Admin: 02/16/21 12:02 Dose: 1 units Documented by: [id number] Cosigned by: [id number] Lorazepam (Lorazepam 0.5 Mg Tab) 0.5 mg PO Q12 PRN PRN Reason: Anxiety Stop: 03/16/21 12:50 Last Admin: 02/16/21 12:29 Dose: 0.5 mg Documented by: [id number] Losartan Potassium (Losartan Potassium 50 Mg Tab) 100 mg PO DAILY [facility] Stop: 03/17/21 08:59 Last Admin: 02/16/21 08:58 Dose: 100 mg Documented by: [id number] Admin: 02/15/21 08:17 Dose: 100 mg Documented by: [id number] Melatonin (Melatonin 3 Mg Tab) 3 mg PO HS [facility] Stop: 03/16/21 20:59 Last Admin: 02/15/21 21:29 Dose: 3 mg Documented by: [id number] Admin: 02/14/21 20:26 Dose: 3 mg Documented by: [id number] Metoclopramide HCl (Metoclopramide Hcl 5 Mg Tablet) 5 mg PO AC PRN PRN Reason: nausea and vomiting Stop: 03/16/21 12:50 Last Admin: 02/16/21 08:56 Dose: 5 mg Documented by: [id number] Miscellaneous (Carbohydrates For Hypoglycemia ) 15 - 30 gm PO UD PRN PRN Reason: Hypoglycemia Treatment Stop: 03/17/21 02:44 Last Admin: 02/15/21 02:38 Dose: 30 gm Documented by: [id number] Ondansetron HCl (Ondansetron 4 Mg Od Tab) 4 mg PO Q4H PRN PRN Reason: NAUSEA/VOMITING Last Admin: 02/16/21 11:57 Dose: 4 mg Documented by: [id number] Admin: 02/16/21 07:19 Dose: 4 mg Documented by: [id number] Pantoprazole Sodium (Pantoprazole 40 Mg Tab) 40 mg PO BID [facility] Stop: 03/16/21 20:59 Last Admin: 02/16/21 08:57 Dose: 40 mg Documented by: [id number] Admin: 02/15/21 21:29 Dose: 40 mg Documented by: [id number] Admin: 02/15/21 08:17 Dose: 40 mg Documented by: [id number] Admin: 02/14/21 20:27 Dose: 40 mg Documented by: [id number] Quetiapine Fumarate (Quetiapine Fumarate 25 Mg Tablet) 25 mg PO HS [facility] Stop: 03/16/21 20:59 Last Admin: 02/15/21 21:29 Dose: 25 mg Documented by: [id number] Admin: 02/14/21 20:27 Dose: 25 mg Documented by: [id number] Sertraline HCl (Sertraline Hcl 100 Mg Tablet) 100 mg PO QAM [facility] Stop: 03/17/21 08:59 Last Admin: 02/16/21 08:57 Dose: 100 mg Documented by: [id number] Admin: 02/15/21 08:17 Dose: 100 mg Documented by: [id number] Vitamin D (Cholecalciferol 1,000 Units 25 Mcg Tab) 1,000 units PO DAILY [facility] Stop: 03/17/21 08:59 Last Admin: 02/16/21 08:57 Dose: 1,000 units Documented by: [id number] Admin: 02/15/21 08:17 Dose: 1,000 units Documented by: [id number] Warfarin Sodium (Warfarin Sod 5 Mg Tab) 5 mg PO [email or web address] [facility] Stop: 03/16/21 15:59 Last Admin: 02/14/21 16:55 Dose: 5 mg Documented by: [id number] Warfarin Sodium (Warfarin Sod 2.5 Mg Tab) 2.5 mg PO [email or web address] [facility] Stop: 03/17/21 15:59 Last Admin: 02/15/21 17:49 Dose: 2.5 mg Documented by: [id number] Coding Level of Care Code 91759 Office/OBS Consult Lvl 4 Diagnoses Depression F33.9 Depression Type: major depressive disorder Major depression recurrence: recurrent Active/Remission status: remission status unspecified
[2021-02-16] MEDS: WARFARIN SOD 5 MG TAB PO SCH (16:44)
[2021-02-16] MEDS ORDERED: HALOPERIDOL 1 MG/0.5 ML UDP PO ONE (17:00)
--- NOTE | 2021-02-16 21:02 | Hospitalist Progress Note ---
Date of Service February 16, 2021 Assessment & Plan (1) Cyclical vomiting: Plan: Assessment & Plan (1) Cyclic vomiting syndrome: Plan: 1. Cyclic Vomiting Syndrome -Patient returns with above problem. restarted diet. nausea again has worsened. will order one time dose of haldol. Appreciate psych input. It appears BP gets elevated when patient is having worsened anxiety and nausea. will also increase amlodipine to BID. -FAMILY INTERESTED IN PALLIATIVE CARE - GI consult worsening gastroparesis 2 Hypertension: Continue other medications as ordered, including carvedilol 25 mg twice daily losartan 100 mg daily amlodipine 5 mg daily 3 Dialysis patient: Hemodialysis Thursday nephro consult (4) Nonischemic cardiomyopathy: Continue cardiac regimen including carvedilol as noted last echo EF of 40 to 45%, increased RV presure, mod global hypokinesis of L ventricle (5) CAD (coronary artery disease): Cardiac medications as noted above along with atorvastatin 10 mg daily (6) Pleural effusion: recurrent Left-sided pleural effusion, pulm consult for evaluation of chemical pleurodesis (7) Pulmonary embolism hx continue anticoagulation with warfarin 8) anx/dep cont. home meds. 9, IDDM - glargine 12 u AM - SSI - hypoglycemia due to vomiting/decreased PO intake while taking insulin dvt ppx: on warfarin dispo: med/surg code status: full code (2) Nausea & vomiting: (3) Hypertensive urgency: Admission and Anticipated Discharge Date Admission Date: February 16, 2021 Subjective Patient reports feeling nauseaous today. Review of Systems Review of Systems: All systems reviewed & are unremarkable except as noted in HPI & below Physical Exam Physical Exam: Constitutional: in no apparent distress,listless appearing Eyes: EOMI, pupils equal and reactive bilaterally, no scleral icterus Cardiac: RRR, no murmurs, gallops or rubs. Normal S1, S2 Pulm: CTA BL, no wheezes, rhonchi, crackles or rubs, moving air well throughout both lungs Abd: soft, nontender, nondistended, normal bowel sounds, no rebound or guarding Extremities: 2+ peripheral pulses, no edema Neuro: no focal deficits, moving all 4 limbs, A&Ox3 Results & Data Results & Data ([facility]) Vital Signs (Past 12 Hours) Vital Signs Temp Pulse Pulse Pulse Resp BP Pulse Ox 02/16/21 19:57 37.1 C 84 18 206/87 H 97 02/16/21 16:25 82 194/78 H 02/16/21 16:00 73 02/16/21 15:58 36.5 C 79 17 193/83 H 98 02/16/21 12:02 36.8 C 75 187/77 H 98 PG Care Time/CCT Total # of Minutes Spent Total Time Spent with Patient: Total time spent is greater than 50% in coordination of care (as documented) at patient's floor/unit and/or counseling patient: Coding Level of Care Code 03035 Subseq Hosp Care Lvl 3 Diagnoses Cyclical vomiting R11.15 Nausea & vomiting R11.2 Vomiting Intractability: intractable Vomiting type: unspecified Hypertensive urgency I16.0 (1) Nausea & vomiting Vomiting Intractability: intractable Vomiting type: unspecified Qualified Code(s): R11.2 - Nausea with vomiting, unspecified
[2021-02-16] MEDS: MELATONIN 3 MG TAB PO SCH (21:53)
[2021-02-16] MEDS: QUEtiapine FUMARATE 25 MG TABLET PO SCH (21:53)
[2021-02-16] MEDS ORDERED: hydrALAZINE HCL 20 MG/ML VIAL IV PRN (21:59)
[2021-02-17] MEDS: METOCLOPRAMIDE HCL 5 MG TABLET PO PRN (07:37)
[2021-02-17] MEDS: INSULIN HUMAN REGULAR SC SCH ×2 (08:42→11:59)
[2021-02-17] MEDS: INSULIN HUMAN NPH SC SCH (08:44)
[2021-02-17] MEDS: ATORVASTATIN 10 MG TAB PO SCH (08:46)
[2021-02-17] MEDS: SERTRALINE HCL 100 MG TABLET PO SCH (08:46)
[2021-02-17] MEDS: CHOLECALCIFEROL 1,000 UNITS 25 MCG TAB PO SCH (08:46)
[2021-02-17] MEDS: amLODIPine BESYLATE 5 MG TAB PO SCH (08:46)
[2021-02-17] MEDS: carvediloL 25 MG TAB PO SCH (08:46)
[2021-02-17] MEDS: LOSARTAN POTASSIUM 50 MG TAB PO SCH (08:46)
[2021-02-17] MEDS: PANTOprazole 40 MG TAB PO SCH (08:47)
[2021-02-17] MEDS ORDERED: METOCLOPRAMIDE HCL 10 MG TABLET PO PRN (11:33)
[2021-02-17 15:22] LABS: INR 2.9 (0.9-1.1); Prothrombin Time 26.7 Seconds (9.0-12.0)
[2021-02-17] MEDS: WARFARIN SOD 5 MG TAB PO SCH (15:43)
--- NOTE | 2021-02-17 19:49 | Discharge Summary ---
Date of Service February 17, 2021 Admission HPI Per Admitting Provider 50-year-old patient with history of cyclic vomiting syndrome, type 1 diabetes with diabetic neuropathy and end-stage renal disease on dialysis, CAD, gastroparesis currently anticoagulated on Coumadin comes to the ER from home with nausea and vomiting overnight as well as elevated BP. He has had multple episodes in the past with similar presentations to the ER. Usually occurs after dialysis. Father and son are interested in palliative care. Patient states he completed a course of dialysis yesterday. Denies any abdominal pain or chest pain, or trouble breathing. Patient has not been able to take his morning medications this morning. Principal Diagnosis Nausea. vomiting. Discharge Exam Constitutional: in no apparent distress,listless appearing Eyes: EOMI, pupils equal and reactive bilaterally, no scleral icterus Cardiac: RRR, no murmurs, gallops or rubs. Normal S1, S2 Pulm: CTA BL, no wheezes, rhonchi, crackles or rubs, moving air well throughout both lungs Abd: soft, nontender, nondistended, normal bowel sounds, no rebound or guarding Extremities: 2+ peripheral pulses, no edema Neuro: no focal deficits, moving all 4 limbs, A&Ox3 Discharge Data Allergies Allergy/AdvReac Type Severity Reaction Status Date / Time shellfish derived Allergy Severe anaphylaxis Verified 02/13/21 15:11 codeine Allergy Intermediate Hives Verified 02/13/21 15:11 promethazine Allergy Intermediate itchy/hives Verified 02/13/21 15:11 Consultations 02/14/21 12:23 ED Decision to Admit Stat 02/14/21 13:10 Consult Gastroenterology Routine 02/14/21 14:59 Consult Palliative Care Routine 02/14/21 15:01 Consult Nephrology Routine 02/15/21 17:02 Consult Psychiatry Routine Hospital Course (1) Cyclical vomiting: Assessment & Plan (1) Cyclic vomiting syndrome: Plan: 1. Cyclic Vomiting Syndrome -Patient returns with above problem. restarted diet. Nausea has improved after antiemetics and anxiety were controlled. Appreciate psych input. It appears BP gets elevated when patient is having worsened anxiety and nausea. Improved after increasing amlodipine to BID. - GI consult worsening gastroparesis Will defer furtheer change of his medications to psych team, however, will stop wellbutrin. Patient is agreeable to discharge. 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 2 Hypertension: Continue other medications as ordered, including carvedilol 25 mg twice daily losartan 100 mg daily amlodipine 5 mg daily 3 Dialysis patient: Hemodialysis Thursday nephro consult (4) Nonischemic cardiomyopathy: Continue cardiac regimen including carvedilol as noted last echo EF of 40 to 45%, increased RV presure, mod global hypokinesis of L ventricle (5) CAD (coronary artery disease): Cardiac medications as noted above along with atorvastatin 10 mg daily (6) Pleural effusion: recurrent Left-sided pleural effusion, pulm consult for evaluation of chemical pleurodesis (7) Pulmonary embolism hx continue anticoagulation with warfarin 8) anx/dep cont. home meds. 9, IDDM - glargine 12 u AM - SSI - hypoglycemia due to vomiting/decreased PO intake while taking insulin (2) Nausea & vomiting: (3) Hypertensive urgency: Total Time Total Time Spent Total Time Spent (In Minutes): 32 Discharge Plan Discharge Items Patient Disposition: Home - Home Health Services Reason For Visit: CYCLIC VOMITING Discharge Diagnosis: cycylic vomiting Activity: Resume your previous activity Non-emergency contact: Primary Care Provider Call non-emergency contact if: you have any medication questions Follow-up/Referrals: Abbi Ames MD [Primary Care Provider] - Diet: Carb Consistent or DM2 Addtl Attending Provider Instructions: You have been hospitalized for an acute medical problem. During your stay at [facility], we have made an effort to correct the problem that brought you to the hospital while keeping you as comfortable as possible. Medications were used to bring your condition under control and your discharge instructions will include directions for any medications you should take after leaving the hospital. Please make sure you see your Primary Care Provider as part of your follow up plan. Pending Studies at Discharge: No Stand-Alone Forms: My [facility] [employer], Smoking Cessation Medications and DC Order Prescriptions: New amlodipine [Norvasc] 5 mg Tablet 5 mg PO BID Qty: 60 RF: 0 Continued warfarin 5 mg tablet See Rx Instructions PO DAILY Qty: 120 RF: 0 Basaglar KwikPen U-100 Insulin 100 unit/mL (3 mL) insulin pen 12 unit SUBCUT QAM RF: 0 acetaminophen 325 mg capsule 650 mg PO Q4H PRN (Reason: Pain (Scale Score 1-3)) RF: 0 pantoprazole 40 mg tablet,delayed release (DR/EC) 40 mg PO BID Qty: 60 RF: 5 atorvastatin 10 mg tablet 10 mg PO DAILY Qty: 90 RF: 1 ondansetron HCl [Zofran] 4 mg tablet 4 mg PO Q4H PRN (Reason: NAUSEA/VOMITING) RF: 0 cholecalciferol (vitamin D3) [Vitamin D3] 50 mcg (2,000 unit) capsule 50 mcg PO DAILY Qty: 30 RF: 3 lorazepam 0.5 mg tablet 0.5 mg PO Q12 PRN (Reason: Anxiety) Qty: 60 RF: 0 carvedilol 25 mg tablet 25 mg PO BIDM RF: 0 melatonin 3 mg tablet 3 mg PO HS RF: 0 sertraline 100 mg tablet 100 mg PO QAM Qty: 90 RF: 0 insulin aspart U-100 [Novolog Flexpen U-100 Insulin] 100 unit/mL (3 mL) insulin pen 5 unit SUBCUT TIDM PRN (Reason: sliding scale) RF: 0 bisacodyl 10 mg Suppository 10 mg SC DAILY PRN (Reason: Constipation) RF: 0 polyethylene glycol 3350 [Miralax] 17 gram/dose Powder 17 g PO QDL PRN (Reason: Constipation) RF: 0 losartan 100 mg Tablet 100 mg PO DAILY RF: 0 quetiapine [Seroquel] 25 mg tablet 25 mg PO HS Qty: 30 RF: 0 metoclopramide HCl 5 mg tablet 5 mg PO AC PRN (Reason: nausea and vomiting) Qty: 30 RF: 0 Discontinued bupropion HCl 100 mg tablet sustained-release 12 hr 100 mg PO QAM RF: 0 amlodipine 5 mg tablet 5 mg PO DAILY Qty: 90 RF: 3 Discharge Orders: Discharge Order (Routine); Ordered 02/17/21 Ordered By: Sami Mckeon Admission Data Admit Date/Time: 02/16/21 16:45 Attending Provider: Sami Mckeon Admit Provider: Sami Mckeon Primary Care Provider: Abbi Ames V. Other Providers: Sami Mckeon ; Deep Isaacs ; Veronica Phipps ; Abelion oCok ; Lor Guadalupe ; Arcenio Ortiz ; Suman Montilla ; Elizabeth Corea ; Olga Chavez ; Ethel Ocampo ; Sheila Hernandez ; Jose Espinoza Other Interventions: Discharge Summary Assessment (RN) Last Done: 02/17/21 15:26 Coding Level of Care Code D/C DAY MANAGEMENT >30 MINS Diagnoses Cyclical vomiting R11.15 Nausea & vomiting R11.2 Vomiting Intractability: intractable Vomiting type: unspecified Hypertensive urgency I16.0
== END 2021-02-17 16:00 | disposition home health service (06) | DRG 391 ==
LOC: ED 07:40 → 1E 07:40 → 2S 02-15 17:18

== ENCOUNTER 2021-03-13 18:56 | Observation (INO) ==
[2021-03-13] MEDS ORDERED: METOCLOPRAMIDE HCL INJ 5 MG/ML 2 ML VIAL IV ONE (19:11)
[2021-03-13] MEDS ORDERED: ONDANSETRON INJ 2 MG/ML 2 ML VIAL IV STA ×2 (19:11→19:59)
--- NOTE | 2021-03-13 19:18 | Emergency Department Note ---
Impression & Plan Vomiting, Gastroparesis, HTN (hypertension) ED Provider Note NAME: JERARDO PEREZ AGE: 50 SEX: M : 1970 ARRIVES VIA: Ambulance INFORMANT: Patient ED PROVIDER(S): Obie Lancaster DO CHIEF COMPLAINT: Vomiting HPI: Patient is a 50-year-old male with a known history of gastroparesis, diabetes, nonischemic cardiomyopathy, hypertension, PEs on Coumadin gets dialysis Thursday, Thursday, and Thursday. He received a full course today. He presents as he has been having vomiting since about 10 AM this morning. He notes it is liquid. There is no blood present. Normal bowel movement within the past 24 hours. He has no belly pain but admits to an achy pain about 2 out of 10. No headache or change in vision. No chest pain or shortness of breath. No no other exacerbating or remitting factors. This feels like his previous bouts of gastroparesis. ROS: See above HPI for pertinent positives & negatives. A total of 10 systems r eviewed and were otherwise negative. PAST MEDICAL HISTORY:See Below PAST SURGICAL HISTORY:See Below FAMILY HISTORY:See Below SOCIAL HISTORY:See Below HOME MEDICATIONS:See Below ALLERGIES:See Below VITALS:See Below PHYSICAL EXAMINATION: GENERAL: Sitting up in bed, alert, ill-appearing, disheveled, cachectic EYE EXAM: normal conjunctiva. PERRL and EOM's grossly intact. OROPHARYNX: Dry mucous membranes NECK: supple, no nuchal rigidity, no adenopathy, non-tender LUNGS: Clear to auscultation. Normal chest wall mechanics HEART: no murmurs, S1 normal and S2 normal ABDOMEN: abdomen soft, non-tender, normo-active bowel sounds, no masses, no rebound or guarding. UPPER EXTREMITIES: upper extremities are grossly normal. LOWER EXTREMITIES: No pitting edema. NEURO EXAM: Normal sensorium, cranial nerves II-XII grossly intact, normal speech, no gross weakness of arms, no gross weakness of legs. MEDICAL DECISION MAKING: Patient is a 50-year-old male with past medical history of gastroparesis kimberly betes on dialysis who presents the ER for vomiting is unable to keep anything down. He has an extensive history of this with multiple admissions likely secondary to his gastroparesis. IV was established blood work was obtained. Labs show no significant leukocytosis or anemia. INR was therapeutic at 2.0. BMP with a creatinine of 3.7. LFTs bilirubin was unremarkable. Lipase was normal. Obstruction series unremarkable. Covid was negative. He was given Reglan, and Zofran. He continued to intermittently dry heaving. He was discussed with the hospitalist for observation. Discussed with Pt concerning signs and symptoms to watch out for. Pt was instructed to follow up with their PCP and discussed with the patient their option to return to the ED at anytime for persistent or worsening symptoms. The appropriate anticipatory guidance and out-patient management, including indications for return to the emergency department, were explained at length to the patient and understood. Triage Nursing notes reviewed. Limited review of prior medical records performed Vital Signs: reviewed and remarkable for no significant abnormalities Differential diagnosis: Differential diagnoses includes but is not limited to acute coronary syndrome, myocardial infarction, pericarditis, pulmonary embolus, aortic dissection, pneumonia, pneumothorax, musculoskeletal, shingles, esophageal. ER treatment provided: See below Diagnostics interpreted by me: ECG: none Cardiac Monitoring: An order was placed for continuous cardiac monitoring. The monitor shows a rate of 80 with sinus rhythm. Laboratory studies: As stated above and show below. Imaging studies: Obstruction series was unremarkable Consultation(s): none Procedures: none Critical Care: None Past Med/Surg History Medical History Anemia of chronic disease Anxiety AV fistula left upper arm CAD (coronary artery disease) mild, non-obstructive CAD per 10/2018 cardiac cath> [facility] Cardiac murmur follows with Dr. Powell Chronic pleural effusion PleurX catheter placed 01/24/21; pt reports emptying q2d Depression Diabetes Diabetic retinopathy Dialysis patient Encounter for pre-operative examination ESRD (end stage renal disease) M,W,F (Follows with Dr. Lor Guadalupe; [facility] Gastroparesis GERD (gastroesophageal reflux disease) History of pulmonary embolism 11/2020; unk etiology; started on warfarin Hypertension Kidney stones Lumbar radiculopathy Peripheral neuropathy Retinopathy due to secondary diabetes Severe protein-calorie malnutrition Surgical History H/O shoulder surgery RIGHT History of appendectomy History of cardiac cath 10/2018= no stents, no obstructive disease (at [facility]) History of cataract surgery History of esophagogastroduodenoscopy (EGD) (~03/08/20) History of hip surgery left HIP ARTHROSCOPY History of lithotripsy History of open reduction and internal fixation (ORIF) procedure right hip Nausea and vomiting after administration of anesthetic agent Permanent central venous catheter in place Permacath has been removed S/P arteriovenous (AV) fistula creation Family History Grandfather Myocardial infarction Grandfather (Maternal) Family history of diabetes mellitus Uncle Myocardial infarction Father Hypertension Mother Kidney stone Other No family history of adverse response to anesthesia Denies family history of Colon cancer Ovarian cancer Prostate cancer Breast cancer Social History Smoking Status: Never smoker Second Hand Exposure: No; Hx Alcohol Use: No Hx Substance Use: No Preferred Language: Belarusian Communication Ability: Effective Visual Impairment: No Limitations Hearing Ability: Normal Business And Services 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 current occupational status: disabled How many Children do You have: 2 Feels Safe at Home: Yes Safety Concerns: Feels Safe At This Time Childhood Exposure to Second-Hand Smoke: Yes Dental Care, Regularly: No Physical Activity Frequency: 1-2 Times per Week Seatbelt Use: always Sunscreen Use: No Assistive Devices: Cane and Glasses Allergies Allergies Allergy/AdvReac Type Severity Reaction Status Date / Time shellfish derived Allergy Severe anaphylaxis Verified 03/13/21 21:27 codeine Allergy Intermediate Hives Verified 03/13/21 21:27 promethazine Allergy Intermediate itchy/hives Verified 03/13/21 21:27 Home Meds Home Medications Medication Instructions Recorded Confirmed melatonin 3 mg tablet 3 mg PO HS tab 09/05/20 03/13/21 acetaminophen 325 mg capsule 650 mg PO Q4H PRN cap 09/28/20 03/13/21 carvedilol 25 mg tablet 25 mg PO BIDM tab 10/01/20 03/13/21 losartan 100 mg tablet 100 mg PO QAM 11/29/20 03/13/21 insulin aspart U-100 100 unit/mL 5 unit SUBCUT TIDM PRN 12/21/20 03/13/21 (3 mL) subcutaneous pen (Novolog Flexpen U-100 Insulin aspart) atorvastatin 10 mg tablet 10 mg PO QAM 03/11/21 03/13/21 bupropion HCl 100 mg tablet,12 hr 155 mg PO DAILY 03/13/21 03/13/21 sustained-release cholecalciferol (vitamin D3) 50 50 mcg PO DAILY 03/13/21 03/13/21 mcg (2,000 unit) capsule (Vitamin D3) darbepoetin jessee in polysorbat 60 60 mcg SUBCUT .EVERY Thursday03/13/21 03/13/21 mcg/0.3 mL (polysorb) subcutaneous pen injector hydrocortisone 1 % topical cream 1 applic TOPICAL Q6 PRN 03/13/21 03/13/21 insulin glargine 100 unit/mL (3 12 unit SUBCUT QAM 03/13/21 03/13/21 mL) subcutaneous pen (Basaglar KwikPen U-100 Insulin) ondansetron HCl 4 mg tablet 4 mg PO Q4 PRN 03/13/21 03/13/21 polyethylene glycol 3350 17 17 g PO DAILY PRN 03/13/21 03/13/21 gram/dose oral powder (Miralax) trimethobenzamide 300 mg capsule 300 mg PO TID PRN 03/13/21 03/13/21 vitamin B complex-vitamin C-folic 1 tab PO DAILY 03/13/21 03/13/21 acid 0.8 mg tablet (Renal Vitamin) Previous Rx's Medication Instructions Recorded sertraline 100 mg tablet 100 mg PO QAM #90 tab 12/11/20 metoclopramide HCl 5 mg tablet 5 mg PO AC PRN #30 tab 01/07/21 quetiapine 25 mg tablet (Seroquel) 25 mg PO HS #30 tab 01/07/21 lorazepam 0.5 mg tablet 0.5 mg PO Q12 PRN #60 tab 01/18/21 pantoprazole 40 mg tablet,delayed 40 mg PO BID #60 tab 02/12/21 release warfarin 5 mg tablet See Rx Instructions PO DAILY #120 02/13/21 tab amlodipine 5 mg tablet (Norvasc) 5 mg PO BID #60 tab 02/17/21 Results & Data (ED) Vital Signs Vital Signs - 24 hr 03/13/21 19:02 03/13/21 19:13 03/13/21 19:30 Temperature 36.8 C Temperature Source Oral Pulse Rate 84 Pulse Rate [Left] 81 Pulse Rate from SpO2 Sensor Pulse Rhythm Regular Pulse Rhythm [Left] Regular Pulse Strength Normal Pulse Strength [Left] Normal Respiratory Rate 19 18 17 Respiratory Effort / Characteristics Non-Labored Non-Labored Non-Labored Respiratory Depth Normal Normal Normal Respiratory Pattern Regular Regular Regular Blood Pressure 198/101 H Blood Pressure [Right Arm] 180/120 H 205/91 H Blood Pressure Mean 133 Blood Pressure Mean [Right Arm] 140 129 Blood Pressure Position Sitting Blood Pressure Position [Right Arm] Lying Lying Pulse Oximetry 99 99 98 Oxygen Delivery Method Room Air Room Air Room Air Sepsis Recent Fever Within 48 Hours No Sepsis New/Unexplained Change in Mental Status N/A Sepsis Action Taken by Nursing No Action Required 03/13/21 19:42 03/13/21 19:48 03/13/21 19:50 Temperature Temperature Source Pulse Rate 83 84 Pulse Rate [Left] 79 Pulse Rate from SpO2 Sensor 83 84 Pulse Rhythm Pulse Rhythm [Left] Regular Pulse Strength Pulse Strength [Left] Normal Respiratory Rate 17 18 14 Respiratory Effort / Characteristics Non-Labored Respiratory Depth Normal Respiratory Pattern Regular Blood Pressure Blood Pressure [Right Arm] 203/92 H Blood Pressure Mean Blood Pressure Mean [Right Arm] 129 Blood Pressure Position Blood Pressure Position [Right Arm] Lying Pulse Oximetry 99 100 99 Oxygen Delivery Method Room Air Room Air Room Air Sepsis Recent Fever Within 48 Hours Sepsis New/Unexplained Change in Mental Status Sepsis Action Taken by Nursing 03/13/21 19:55 03/13/21 20:00 03/13/21 20:05 Temperature Temperature Source Pulse Rate Pulse Rate [Left] 85 Pulse Rate from SpO2 Sensor 80 81 82 Pulse Rhythm Pulse Rhythm [Left] Regular Pulse Strength Pulse Strength [Left] Normal Respiratory Rate 17 Respiratory Effort / Characteristics Non-Labored Respiratory Depth Normal Respiratory Pattern Regular Blood Pressure 186/92 H Blood Pressure [Right Arm] 186/92 H Blood Pressure Mean 123 Blood Pressure Mean [Right Arm] 123 Blood Pressure Position Blood Pressure Position [Right Arm] Pulse Oximetry 99 99 99 Oxygen Delivery Method Room Air Room Air Room Air Sepsis Recent Fever Within 48 Hours Sepsis New/Unexplained Change in Mental Status Sepsis Action Taken by Nursing 03/13/21 20:10 03/13/21 20:15 03/13/21 20:20 Temperature Temperature Source Pulse Rate 84 82 Pulse Rate [Left] Pulse Rate from SpO2 Sensor 82 82 Pulse Rhythm Pulse Rhythm [Left] Pulse Strength Pulse Strength [Left] Respiratory Rate 13 13 Respiratory Effort / Characteristics Respiratory Depth Respiratory Pattern Blood Pressure 194/90 H 177/86 H 179/87 H Blood Pressure [Right Arm] Blood Pressure Mean 124 116 117 Blood Pressure Mean [Right Arm] Blood Pressure Position Blood Pressure Position [Right Arm] Pulse Oximetry 99 98 Oxygen Delivery Method Room Air Room Air Sepsis Recent Fever Within 48 Hours Sepsis New/Unexplained Change in Mental Status Sepsis Action Taken by Nursing 03/13/21 20:25 03/13/21 20:30 03/13/21 20:35 Temperature Temperature Source Pulse Rate 83 87 85 Pulse Rate [Left] Pulse Rate from SpO2 Sensor 82 Pulse Rhythm Pulse Rhythm [Left] Pulse Strength Pulse Strength [Left] Respiratory Rate 13 13 14 Respiratory Effort / Characteristics Respiratory Depth Respiratory Pattern Blood Pressure 170/81 H 161/76 H 191/88 H Blood Pressure [Right Arm] Blood Pressure Mean 110 104 122 Blood Pressure Mean [Right Arm] Blood Pressure Position Blood Pressure Position [Right Arm] Pulse Oximetry 98 98 99 Oxygen Delivery Method Room Air Room Air Room Air Sepsis Recent Fever Within 48 Hours Sepsis New/Unexplained Change in Mental Status Sepsis Action Taken by Nursing 03/13/21 20:40 03/13/21 20:45 03/13/21 20:50 Temperature Temperature Source Pulse Rate 84 82 83 Pulse Rate [Left] Pulse Rate from SpO2 Sensor Pulse Rhythm Pulse Rhythm [Left] Pulse Strength Pulse Strength [Left] Respiratory Rate 15 14 13 Respiratory Effort / Characteristics Respiratory Depth Respiratory Pattern Blood Pressure 181/86 H 175/86 H 177/86 H Blood Pressure [Right Arm] Blood Pressure Mean 117 115 116 Blood Pressure Mean [Right Arm] Blood Pressure Position Blood Pressure Position [Right Arm] Pulse Oximetry 99 99 98 Oxygen Delivery Method Room Air Room Air Room Air Sepsis Recent Fever Within 48 Hours Sepsis New/Unexplained Change in Mental Status Sepsis Action Taken by Nursing 03/13/21 20:55 03/13/21 21:00 03/13/21 21:05 Temperature Temperature Source Pulse Rate 82 83 84 Pulse Rate [Left] Pulse Rate from SpO2 Sensor Pulse Rhythm Pulse Rhythm [Left] Pulse Strength Pulse Strength [Left] Respiratory Rate 15 12 13 Respiratory Effort / Characteristics Respiratory Depth Respiratory Pattern Blood Pressure 176/84 H 181/95 H 179/84 H Blood Pressure [Right Arm] Blood Pressure Mean 114 123 115 Blood Pressure Mean [Right Arm] Blood Pressure Position Blood Pressure Position [Right Arm] Pulse Oximetry 99 99 99 Oxygen Delivery Method Room Air Room Air Room Air Sepsis Recent Fever Within 48 Hours Sepsis New/Unexplained Change in Mental Status Sepsis Action Taken by Nursing 03/13/21 21:10 03/13/21 21:15 03/13/21 21:20 Temperature Temperature Source Pulse Rate 85 87 87 Pulse Rate [Left] Pulse Rate from SpO2 Sensor Pulse Rhythm Pulse Rhythm [Left] Pulse Strength Pulse Strength [Left] Respiratory Rate 12 14 14 Respiratory Effort / Characteristics Respiratory Depth Respiratory Pattern Blood Pressure 171/78 H 164/80 H 160/77 H Blood Pressure [Right Arm] Blood Pressure Mean 109 108 104 Blood Pressure Mean [Right Arm] Blood Pressure Position Blood Pressure Position [Right Arm] Pulse Oximetry 99 99 99 Oxygen Delivery Method Room Air Room Air Room Air Sepsis Recent Fever Within 48 Hours Sepsis New/Unexplained Change in Mental Status Sepsis Action Taken by Nursing 03/13/21 21:25 03/13/21 21:29 03/13/21 21:30 Temperature 36.9 C Temperature Source Oral Pulse Rate 86 87 Pulse Rate [Left] 88 Pulse Rate from SpO2 Sensor Pulse Rhythm Pulse Rhythm [Left] Pulse Strength Pulse Strength [Left] Respiratory Rate 14 20 17 Respiratory Effort / Characteristics Respiratory Depth Respiratory Pattern Blood Pressure 165/84 H 160/78 H Blood Pressure [Right Arm] 165/84 H Blood Pressure Mean 111 105 Blood Pressure Mean [Right Arm] 111 Blood Pressure Position Blood Pressure Position [Right Arm] Pulse Oximetry 99 95 99 Oxygen Delivery Method Room Air Room Air Room Air Sepsis Recent Fever Within 48 Hours Sepsis New/Unexplained Change in Mental Status Sepsis Action Taken by Nursing 03/13/21 21:35 03/13/21 21:40 03/13/21 21:45 Temperature Temperature Source Pulse Rate 88 86 89 Pulse Rate [Left] Pulse Rate from SpO2 Sensor Pulse Rhythm Pulse Rhythm [Left] Pulse Strength Pulse Strength [Left] Respiratory Rate 14 16 16 Respiratory Effort / Characteristics Respiratory Depth Respiratory Pattern Blood Pressure 157/76 H 162/78 H 161/79 H Blood Pressure [Right Arm] Blood Pressure Mean 103 106 106 Blood Pressure Mean [Right Arm] Blood Pressure Position Blood Pressure Position [Right Arm] Pulse Oximetry 99 99 99 Oxygen Delivery Method Room Air Room Air Room Air Sepsis Recent Fever Within 48 Hours Sepsis New/Unexplained Change in Mental Status Sepsis Action Taken by Nursing 03/13/21 21:50 03/13/21 21:55 Temperature Temperature Source Pulse Rate 88 88 Pulse Rate [Left] Pulse Rate from SpO2 Sensor Pulse Rhythm Pulse Rhythm [Left] Pulse Strength Pulse Strength [Left] Respiratory Rate 16 15 Respiratory Effort / Characteristics Respiratory Depth Respiratory Pattern Blood Pressure 151/64 H 157/75 H Blood Pressure [Right Arm] Blood Pressure Mean 93 102 Blood Pressure Mean [Right Arm] Blood Pressure Position Blood Pressure Position [Right Arm] Pulse Oximetry 99 99 Oxygen Delivery Method Room Air Room Air Sepsis Recent Fever Within 48 Hours Sepsis New/Unexplained Change in Mental Status Sepsis Action Taken by Nursing Laboratory Data Result diagrams: 03/13/21 19:30 03/13/21 19:30 Lab Results 03/13/21 03/13/21 03/13/21 Range/Units 19:30 19:30 19:30 WBC 9.23 (4.8-10.8) K/uL RBC 4.15 L (4.7-6.1) M/uL Hgb 13.6 L (14.0-18.0) g/dL Hct 40.2 L (42-52) % MCV 96.9 (80-100) fL MCH 32.8 (25-34) pg MCHC 33.8 (32-36) g/dL RDW Std Deviation 50.9 H (36.4-46.3) fL RDW Coeff of Kami 14.3 (11.5-14.5) % Plt Count 357 (130-400) K/uL MPV 8.9 (7.4-10.4) fL Immature Gran % (Auto) 0.2 % Neut % (Auto) 86.6 % Lymph % (Auto) 7.8 % [place] % (Auto) 5.0 % Eos % (Auto) 0.2 % Baso % (Auto) 0.2 % Neut # (Auto) 7.99 H (1.4-6.5) K/uL Lymph # (Auto) 0.72 L (1.2-3.4) K/uL [place] # (Auto) 0.46 (0.11-0.59) K/uL Eos # (Auto) 0.02 (0-0.5) K/uL Baso # (Auto) 0.02 (0-0.2) K/uL Immature Gran # (Auto) 0.02 (0.00-0.02) K/uL PT 19.3 H (9.0-12.0) Seconds INR 2.0 H (0.9-1.1) Sodium 132 L (136-145) mmol/L Potassium 4.5 (3.5-5.1) mmol/L Chloride 97 L (98-107) mmol/L Carbon Dioxide 27 (21-32) mmol/L Anion Gap 8.0 (3-11) BUN 21 H (7-18) mg/dl Creatinine 3.77 H (0.6-1.4) mg/dl Est Cr Clr Drug Dosing 22.1 ml/min Est GFR ( Amer) 20.4 ml/min Est GFR (Non-Af Amer) 17.6 ml/min BUN/Creatinine Ratio 5.6 L (10-20) Glucose 134 H (70-99) mg/dl Calcium 9.2 (8.5-10.1) mg/dl Total Bilirubin 0.7 (0.2-1) mg/dl AST 27 (15-37) U/L ALT 68 (12-78) U/L Alkaline Phosphatase 138 H (45-117) U/L Total Protein 7.9 (6.4-8.2) gm/dl Albumin 3.6 (3.4-5.0) gm/dl Globulin 4.3 H (2.5-4.0) gm/dl Albumin/Globulin Ratio 0.8 L (0.9-2) Lipase 108 (73-393) U/L COVID-19 Eval Order SARS-CoV-2 (PCR) (Negative) 03/13/21 03/13/21 Range/Units 20:16 20:16 WBC (4.8-10.8) K/uL RBC (4.7-6.1) M/uL Hgb (14.0-18.0) g/dL Hct (42-52) % MCV (80-100) fL MCH (25-34) pg MCHC (32-36) g/dL RDW Std Deviation (36.4-46.3) fL RDW Coeff of Kami (11.5-14.5) % Plt Count (130-400) K/uL MPV (7.4-10.4) fL Immature Gran % (Auto) % Neut % (Auto) % Lymph % (Auto) % [place] % (Auto) % Eos % (Auto) % Baso % (Auto) % Neut # (Auto) (1.4-6.5) K/uL Lymph # (Auto) (1.2-3.4) K/uL [place] # (Auto) (0.11-0.59) K/uL Eos # (Auto) (0-0.5) K/uL Baso # (Auto) (0-0.2) K/uL Immature Gran # (Auto) (0.00-0.02) K/uL PT (9.0-12.0) Seconds INR (0.9-1.1) Sodium (136-145) mmol/L Potassium (3.5-5.1) mmol/L Chloride (98-107) mmol/L Carbon Dioxide (21-32) mmol/L Anion Gap (3-11) BUN (7-18) mg/dl Creatinine (0.6-1.4) mg/dl Est Cr Clr Drug Dosing ml/min Est GFR ( Amer) ml/min Est GFR (Non-Af Amer) ml/min BUN/Creatinine Ratio (10-20) Glucose (70-99) mg/dl Calcium (8.5-10.1) mg/dl Total Bilirubin (0.2-1) mg/dl AST (15-37) U/L ALT (12-78) U/L Alkaline Phosphatase (45-117) U/L Total Protein (6.4-8.2) gm/dl Albumin (3.4-5.0) gm/dl Globulin (2.5-4.0) gm/dl Albumin/Globulin Ratio (0.9-2) Lipase (73-393) U/L COVID-19 Eval Order Covid19 at [facility] SARS-CoV-2 (PCR) NEGATIVE (Negative) Administered Medications Discontinued Medications Hydralazine HCl (Hydralazine Hcl 20 Mg/Ml Vial) 10 mg IV NOW STA Stop: 03/13/21 20:00 Last Admin: 03/13/21 20:08 Dose: 10 mg Documented by: [id number] Hydralazine HCl (Hydralazine Hcl 20 Mg/Ml Vial) 10 mg IV NOW STA Stop: 03/13/21 21:00 Last Admin: 03/13/21 21:04 Dose: 10 mg Documented by: [id number] Metoclopramide HCl (Metoclopramide Hcl Inj 5 Mg/Ml 2 Ml Vial) 5 mg IV ONE ONE Stop: 03/13/21 19:12 Last Admin: 03/13/21 19:44 Dose: 5 mg Documented by: [id number] Ondansetron HCl (Ondansetron Inj 2 Mg/Ml 2 Ml Vial) 4 mg IV NOW STA Stop: 03/13/21 19:12 Last Admin: 03/13/21 19:44 Dose: 4 mg Documented by: [id number] Ondansetron HCl (Ondansetron Inj 2 Mg/Ml 2 Ml Vial) 4 mg IV NOW STA Stop: 03/13/21 20:00 Last Admin: 03/13/21 20:08 Dose: 4 mg Documented by: [id number] Imaging Data Radiologist's Impression: Chest/Abdomen X-ray 03/13/21 19:59 CHEST AND ABDOMEN 2 VIEWS HISTORY: Generalized abdominal pain. COMPARISON: Chest x-ray 02/14/2021. Abdomen and pelvis CT 03/04/2021. FINDINGS: The heart is normal in size. A left basilar pleural drain is again noted. The lungs are clear. No evidence for pulmonary edema. No significant pleural effusions. No pneumothorax. No pneumoperitoneum. No pneumatosis. Postoperative changes again noted within the right hip. No dilated loops of bowel to suggest an obstruction. Basilar calcifications again noted within the pelvis. A 5 mm calcification again noted within the right renal pelvis. No left renal calculi. IMPRESSION: 1. No acute process within the chest. 2. Left basilar pleural drain is again noted. No pneumothorax. 3. No evidence for bowel obstruction. 4. Right-sided nephrolithiasis, unchanged. ACT 112: Negative or not required by law. Electronically signed by: Cristiano Brown M.D. 03/13/2021 8:42 PM Discharge Plan Visit Data Chief Complaint: Illness ED Provider: Obie Lancaster Discharge Problem: Vomiting, Gastroparesis, HTN (hypertension) Forms Stand Alone Forms: My [facility] Prescriptions Prescriptions: No Action warfarin 5 mg tablet See Rx Instructions PO DAILY Qty: 120 RF: 0 acetaminophen 325 mg capsule 650 mg PO Q4H PRN (Reason: Pain (Scale Score 1-3)) RF: 0 pantoprazole 40 mg tablet,delayed release (DR/EC) 40 mg PO BID Qty: 60 RF: 5 lorazepam 0.5 mg tablet 0.5 mg PO Q12 PRN (Reason: Anxiety) Qty: 60 RF: 0 carvedilol 25 mg tablet 25 mg PO BIDM RF: 0 melatonin 3 mg tablet 3 mg PO HS RF: 0 sertraline 100 mg tablet 100 mg PO QAM Qty: 90 RF: 0 insulin aspart U-100 [Novolog Flexpen U-100 Insulin] 100 unit/mL (3 mL) insulin pen 5 unit SUBCUT TIDM PRN (Reason: sliding scale) RF: 0 losartan 100 mg Tablet 100 mg PO QAM RF: 0 quetiapine [Seroquel] 25 mg tablet 25 mg PO HS Qty: 30 RF: 0 metoclopramide HCl 5 mg tablet 5 mg PO AC PRN (Reason: nausea and vomiting) Qty: 30 RF: 0 amlodipine [Norvasc] 5 mg Tablet 5 mg PO BID Qty: 60 RF: 0 atorvastatin 10 mg tablet 10 mg PO QAM RF: 0 Basaglar KwikPen U-100 Insulin 100 unit/mL (3 mL) insulin pen 12 unit SUBCUT QAM RF: 0 bupropion HCl 100 mg tablet sustained-release 12 hr 155 mg PO DAILY RF: 0 hydrocortisone 1 % Cream 1 applic TOPICAL Q6 PRN (Reason: Itching) RF: 0 Renal Vitamin 0.8 mg Tablet 1 tab PO DAILY RF: 0 cholecalciferol (vitamin D3) [Vitamin D3] 50 mcg (2,000 unit) Capsule 50 mcg PO DAILY RF: 0 ondansetron HCl 4 mg Tablet 4 mg PO Q4 PRN (Reason: nausea or vomiting) RF: 0 polyethylene glycol 3350 [Miralax] 17 gram/dose Powder 17 g PO DAILY PRN (Reason: Constipation) RF: 0 trimethobenzamide 300 mg Capsule 300 mg PO TID PRN (Reason: Nausea) RF: 0 darbepoetin jessee in polysorbat 60 mcg/0.3 mL Pen Injector 60 mcg SUBCUT .EVERY THURSDAY RF: 0 Referrals Referrals: Abbi Ames MD [Primary Care Provider] -
[2021-03-13 19:58] LABS: Basophils # (auto) 0.02 K/uL (0-0.2); Basophils % (auto) 0.2 %; Eosinophils # (auto) 0.02 K/uL (0-0.5); Eosinophils % (auto) 0.2 %; Hematocrit (blood only) 40.2 % (42-52); Hemoglobin 13.6 g/dL (14.0-18.0); Immature Granulocytes # (auto) 0.02 K/uL (0.00-0.02); Immature Granulocytes % (auto) 0.2 %; Lymphocytes # (auto) 0.72 K/uL (1.2-3.4); Lymphocytes % (auto) 7.8 %; Mean Corpuscular Hemoglobin 32.8 pg (25-34); Mean Corpuscular Hgb Conc 33.8 g/dL (32-36); Mean Corpuscular Volume 96.9 fL (80-100); Mean Platelet Volume 8.9 fL (7.4-10.4); Monocytes # (auto) 0.46 K/uL (0.11-0.59); Neutrophils # (auto) 7.99 K/uL (1.4-6.5); Neutrophils % (auto) 86.6 %; Platelet Count 357 K/uL (130-400); RDW Coefficient of Variation 14.3 % (11.5-14.5); RDW Standard Deviation 50.9 fL (36.4-46.3); Red Blood Count 4.15 M/uL (4.7-6.1); White Blood Count 9.23 K/uL (4.8-10.8)
[2021-03-13] MEDS ORDERED: hydrALAZINE HCL 20 MG/ML VIAL IV STA ×2 (19:59→20:59)
[2021-03-13 20:14] LABS: Prothrombin Time 19.3 Seconds (9.0-12.0)
[2021-03-13 20:15] LABS: Albumin Level 3.6 gm/dl (3.4-5.0); BUN Creatinine Ratio 5.6 (10-20); Calcium 9.2 mg/dl (8.5-10.1); Creatinine Clr Calc Pharmacy 22.1 ml/min; Est GFR (African American) 20.4 ml/min; Est GFR (Non-African American) 17.6 ml/min; Potassium 4.5 mmol/L (3.5-5.1)
[2021-03-13 20:19] LABS: Albumin Globulin Ratio 0.8 (0.9-2); Bilirubin,Total 0.7 mg/dl (0.2-1); Globulin 4.3 gm/dl (2.5-4.0); Total Protein 7.9 gm/dl (6.4-8.2)
--- NOTE | 2021-03-13 20:44 | XRay Report ---
CHEST AND ABDOMEN 2 VIEWS HISTORY: Generalized abdominal pain. COMPARISON: Chest x-ray 02/14/2021. Abdomen and pelvis CT 03/04/2021. FINDINGS: The heart is normal in size. A left basilar pleural drain is again noted. The lungs are lizeth ar. No evidence for pulmonary edema. No significant pleural effusions. No pneumothorax. No pneumoperi toneum. No pneumatosis. Postoperative changes again noted within the right hip. No dilated loops of b owel to suggest an obstruction. Basilar calcifications again noted within the pelvis. A 5 mm calcific ation again noted within the right renal pelvis. No left renal calculi. IMPRESSION: 1. No acute process within the chest. 2. Left basilar pleural drain is again noted. No pneumothorax. 3. No evidence for bowel obstruction. 4. Right-sided nephrolithiasis, unchanged. ACT 112: Negative or not required by law. Electronically signed by: Cristiano Brown M.D. 03/13/2021 8:42 PM
--- NOTE | 2021-03-13 22:07 | History & Physical Report ---
Date of Service March 13, 2021 Assessment & Plan (1) Cyclic vomiting syndrome: Plan: Acute on chronic problem again following after dialysis this morning - Symptoms improving- bilious emesis last at 1930 - follow QT - slightly prolonged on admission QT of 440, QTc of 535 - Continue Zofran, Reglan, Ativan, - LR overnight - 80 ml/hr - normal KUB - Palliative care has been following him- continue as outpatient (2) Pleural effusion: Plan: With Pleurx catheter in place - no need for acute drainage - follow in morning with CXR - drain in am or next day (3) Anticoagulated on warfarin: Plan: On for PE in November - INR 2.0 on admission - Coumadin 2.5mg MF, 5mg x 5 days- adjusted 03/08/21 - Check in Am with n/v (4) Malnourished: Plan: Supportive care (5) Diabetic gastroparesis: Plan: As above (6) Nonischemic cardiomyopathy: Plan: HFrEF- ECHO in 11/26- LV 40-44%, concentric LV wall thickness, Normal valves Continue Carvedilol Continue Losartan Continue atorvastatin (7) Hypertension: Plan: As above - IV support with hydralazine for SBP >205 or DBP >110 - no acute need to control at this time asymptomatic (8) ESRD (end stage renal disease): Plan: Dialysis MWF - follows with [facility] - Consult them if patient unable to be discharged in morning (9) 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 This has been consistent with his most recent EMD visits and admissions. The patient states he has not been able to keep his medications down since this morning. He was given 2 doses of Hydralazine in the EMD for elevated BP in the 160-180 range. He was also given Reglan 5mg, Zofran 4mg x2. He states he feels somewhat better at current. He has not tried any Ativan or any of his other antiemetics. Patient will be observed overnight for symptom control, liquid bland diet, gentle IVF overnight as his lips are very dry and so is his mouth. His last BM was yesterday and was normal. Patient also has a Pleurx catheter in place that was placed for re-occurring pleural effusions on his left side. He normally drains this every 2 days- he last drained it on Thursday. His CXR in the EMD shows no reaccumulation at this time or need for acute drainage on admission. Patient has had his COVID vaccination and his COVID test on admission is: NEGATIVE Allergies Allergy/AdvReac Type Severity Reaction Status Date / Time shellfish derived Allergy Severe anaphylaxis Verified 03/13/21 21:27 codeine Allergy Intermediate Hives Verified 03/13/21 21:27 promethazine Allergy Intermediate itchy/hives Verified 03/13/21 21:27 Home Medications Medication Instructions Recorded Confirmed Type melatonin 3 mg tablet 3 mg PO HS tab 09/05/20 03/13/21 History acetaminophen 325 mg capsule 650 mg PO Q4H PRN cap 09/28/20 03/13/21 History carvedilol 25 mg tablet 25 mg PO BIDM tab 10/01/20 03/13/21 History losartan 100 mg tablet 100 mg PO QAM 11/29/20 03/13/21 History sertraline 100 mg tablet 100 mg PO QAM #90 tab 12/11/20 03/13/21 Rx insulin aspart U-100 100 unit/mL 5 unit SUBCUT TIDM PRN 12/21/20 03/13/21 History (3 mL) subcutaneous pen (Novolog Flexpen U-100 Insulin aspart) metoclopramide HCl 5 mg tablet 5 mg PO AC PRN #30 tab 01/07/21 03/13/21 Rx quetiapine 25 mg tablet (Seroquel) 25 mg PO HS #30 tab 01/07/21 03/13/21 Rx lorazepam 0.5 mg tablet 0.5 mg PO Q12 PRN #60 tab 01/18/21 03/13/21 Rx pantoprazole 40 mg tablet,delayed 40 mg PO BID #60 tab 02/12/21 03/13/21 Rx release warfarin 5 mg tablet See Rx Instructions PO DAILY #120 02/13/21 03/13/21 Rx tab amlodipine 5 mg tablet (Norvasc) 5 mg PO BID #60 tab 02/17/21 03/13/21 Rx atorvastatin 10 mg tablet 10 mg PO QAM 03/11/21 03/13/21 History bupropion HCl 100 mg tablet,12 hr 155 mg PO DAILY 03/13/21 03/13/21 History sustained-release cholecalciferol (vitamin D3) 50 50 mcg PO DAILY 03/13/21 03/13/21 History mcg (2,000 unit) capsule (Vitamin D3) darbepoetin jessee in polysorbat 60 60 mcg SUBCUT .EVERY Thursday03/13/21 03/13/21 History mcg/0.3 mL (polysorb) subcutaneous pen injector hydrocortisone 1 % topical cream 1 applic TOPICAL Q6 PRN 03/13/21 03/13/21 History insulin glargine 100 unit/mL (3 12 unit SUBCUT QAM 03/13/21 03/13/21 History mL) subcutaneous pen (Basaglar KwikPen U-100 Insulin) ondansetron HCl 4 mg tablet 4 mg PO Q4 PRN 03/13/21 03/13/21 History polyethylene glycol 3350 17 17 g PO DAILY PRN 03/13/21 03/13/21 History gram/dose oral powder (Miralax) trimethobenzamide 300 mg capsule 300 mg PO TID PRN 03/13/21 03/13/21 History vitamin B complex-vitamin C-folic 1 tab PO DAILY 03/13/21 03/13/21 History acid 0.8 mg tablet (Renal Vitamin) Past Med/Surg History Medical History Anemia of chronic disease Anxiety AV fistula left upper arm CAD (coronary artery disease) mild, non-obstructive CAD per 10/2018 cardiac cath> [facility] Cardiac murmur follows with Dr. Powell Chronic pleural effusion PleurX catheter placed 01/24/21; pt reports emptying q2d Depression Diabetes Diabetic retinopathy Dialysis patient Encounter for pre-operative examination ESRD (end stage renal disease) M,W,F (Follows with Dr. Lor Guadalupe; [facility]) Gastroparesis GERD (gastroesophageal reflux disease) History of pulmonary embolism 11/2020; unk etiology; started on warfarin Hypertension Kidney stones Lumbar radiculopathy Peripheral neuropathy Retinopathy due to secondary diabetes Severe protein-calorie malnutrition Surgical History H/O shoulder surgery RIGHT History of appendectomy History of cardiac cath 10/2018= no stents, no obstructive disease (at [facility]) History of cataract surgery History of esophagogastroduodenoscopy (EGD) (~03/08/20) History of hip surgery left HIP ARTHROSCOPY History of lithotripsy History of open reduction and internal fixation (ORIF) procedure right hip Nausea and vomiting after administration of anesthetic agent Permanent central venous catheter in place Permacath has been removed S/P arteriovenous (AV) fistula creation Family History Grandfather Myocardial infarction Grandfather (Maternal) Family history of diabetes mellitus Uncle Myocardial infarction Father Hypertension Mother Kidney stone Other No family history of adverse response to anesthesia Denies family history of Colon cancer Ovarian cancer Prostate cancer Breast cancer Social History Smoking Status: Never smoker Second Hand Exposure: No; Hx Alcohol Use: No Hx Substance Use: No Preferred Language: Lao Communication Ability: Effective Visual Impairment: No Limitations Hearing Ability: Normal Lithoduplicator Operator Required: No Beliefs That Will Affect Care: None marital status: Current Living Situation: Parent Current Living Situation Comment: lives with parents. current occupational status: disabled How many Children do You have: 2 Feels Safe at Home: Yes Safety Concerns: Feels Safe At This Time Childhood Exposure to Second-Hand Smoke: Yes Dental Care, Regularly: No Physical Activity Frequency: 1-2 Times per Week Seatbelt Use: always Sunscreen Use: No Assistive Devices: Cane and Glasses Review of Systems Review of Systems: REVIEW OF SYSTEMS: Constitutional: (+) fatigue, No fever, sweats or chills Eyes: No diplopia, no worsening or blurred vision ENT: normal hearing, no trouble swallowing Respiratory: No cough, sputum, dyspnea at rest or on exertion Cardiovascular: No chest pain, tightness or palpitations Abdomen: nausea, vomiting, No pain, diarrhea or constipation Musculoskeletal: No joint pain, calf pain, swelling Neurologic: No weakness, numbness/tingling, or balance problems Psychiatric: No anxiety or depression Skin: No rash or itch Physical Exam Physical Exam: PHYSICAL EXAM: General: drowsy, easily arousable to voice, alert, no apparent distress Head: Normocephalic, atraumatic ENT: PERRL, EOMI, no pharyngeal exudate, mucous membranes dry Neuro: AAO x 3, speech clear and appropriate, strength intact bilaterally 5/5, sensation intact and equal all extremities and dermatomes, no pronator drift Chest: equal rise and fall of the chest, no accessory muscle use, no heaves or thrills, Clear to auscultation, on room air, Cardiac: Regular rate and rhythm, telemetry reviewed, skin warm dry, cap refill <3 seconds, peripheral pulses +2 no JVD, no murmur, no edema GI: NABS x 4 quadrants, soft, nontender to palpation, no rebound, guarding or tenderness : Spontaneously voiding, no pain, no CVA tenderness, Extremities: Normal inspection, no peripheral edema or erythema, calfs nontender to palpation Psych: Normal mood and affect Skin: no rash or erythema Results & Data Results & Data ([facility]) Vital Signs (Past 12 Hours) Vital Signs Temp Pulse Pulse Resp BP BP Pulse Ox 03/13/21 21:05 84 13 179/84 H 99 03/13/21 21:00 83 12 181/95 H 99 03/13/21 20:55 82 15 176/84 H 99 03/13/21 20:50 83 13 177/86 H 98 03/13/21 20:45 82 14 175/86 H 99 03/13/21 20:40 84 15 181/86 H 99 03/13/21 20:35 85 14 191/88 H 99 03/13/21 20:30 87 13 161/76 H 98 03/13/21 20:25 83 13 170/81 H 98 03/13/21 20:20 82 13 179/87 H 98 03/13/21 20:15 84 13 177/86 H 03/13/21 20:10 194/90 H 99 03/13/21 20:05 99 03/13/21 20:00 85 17 186/92 H 186/92 H 99 03/13/21 19:55 99 03/13/21 19:50 84 14 99 03/13/21 19:48 83 18 100 03/13/21 19:42 79 17 203/92 H 99 03/13/21 19:30 81 17 205/91 H 98 03/13/21 19:13 18 180/120 H 99 03/13/21 19:02 36.8 C 84 19 198/101 H 99 Laboratory Results Abnormal lab results 03/13/21 03/13/21 03/13/21 Range/Units 19:30 19:30 19:30 RBC 4.15 L (4.7-6.1) M/uL Hgb 13.6 L (14.0-18.0) g/dL Hct 40.2 L (42-52) % RDW Std Deviation 50.9 H (36.4-46.3) fL Neut # (Auto) 7.99 H (1.4-6.5) K/uL Lymph # (Auto) 0.72 L (1.2-3.4) K/uL PT 19.3 H (9.0-12.0) Seconds INR 2.0 H (0.9-1.1) Sodium 132 L (136-145) mmol/L Chloride 97 L (98-107) mmol/L BUN 21 H (7-18) mg/dl Creatinine 3.77 H (0.6-1.4) mg/dl BUN/Creatinine Ratio 5.6 L (10-20) Glucose 134 H (70-99) mg/dl Alkaline Phosphatase 138 H (45-117) U/L Globulin 4.3 H (2.5-4.0) gm/dl Albumin/Globulin Ratio 0.8 L (0.9-2) Diagnostic Findings Chest/Abdomen X-ray 03/13/21 19:59 CHEST AND ABDOMEN 2 VIEWS HISTORY: Generalized abdominal pain. COMPARISON: Chest x-ray 02/14/2021. Abdomen and pelvis CT 03/04/2021. FINDINGS: The heart is normal in size. A left basilar pleural drain is again noted. The lungs are clear. No evidence for pulmonary edema. No significant pleural effusions. No pneumothorax. No pneumoperitoneum. No pneumatosis. Postoperative changes again noted within the right hip. No dilated loops of bowel to suggest an obstruction. Basilar calcifications again noted within the pelvis. A 5 mm calcification again noted within the right renal pelvis. No left renal calculi. IMPRESSION: 1. No acute process within the chest. 2. Left basilar pleural drain is again noted. No pneumothorax. 3. No evidence for bowel obstruction. 4. Right-sided nephrolithiasis, unchanged. ACT 112: Negative or not required by law. Electronically signed by: Cristiano Brown M.D. 03/13/2021 8:42 PM Medications Administered Home Medications melatonin 3 mg tablet 3 mg PO HS tab 09/05/20 [History Confirmed 03/11/21] acetaminophen 325 mg capsule 650 mg PO Q4H PRN cap 09/28/20 [History Confirmed 03/11/21] carvedilol 25 mg tablet 25 mg PO BIDM tab 10/01/20 [History Confirmed 03/11/21] losartan 100 mg tablet 100 mg PO QAM 11/29/20 [History Confirmed 03/11/21] sertraline 100 mg tablet 100 mg PO QAM #90 tab 12/11/20 [Rx Confirmed 03/11/21] insulin aspart U-100 100 unit/mL (3 mL) subcutaneous pen (Novolog Flexpen U-100 Insulin aspart) 5 unit SUBCUT TIDM PRN 12/21/20 [History Confirmed 03/11/21] metoclopramide HCl 5 mg tablet 5 mg PO AC PRN #30 tab 01/07/21 [Rx Confirmed 03/11/21] quetiapine 25 mg tablet (Seroquel) 25 mg PO HS #30 tab 01/07/21 [Rx Confirmed 03/11/21] lorazepam 0.5 mg tablet 0.5 mg PO Q12 PRN #60 tab 01/18/21 [Rx Confirmed 03/11/21] pantoprazole 40 mg tablet,delayed release 40 mg PO BID #60 tab 02/12/21 [Rx Confirmed 03/11/21] warfarin 5 mg tablet See Rx Instructions PO DAILY #120 tab 02/13/21 [Rx Confirmed 03/11/21] amlodipine 5 mg tablet (Norvasc) 5 mg PO BID #60 tab 02/17/21 [Rx Confirmed 03/11/21] insulin glargine 100 unit/mL (3 mL) subcutaneous pen (Basaglar KwikPen U-100 Insulin) 14 unit SUBCUT QAM ml 02/26/21 [History Confirmed 03/11/21] ondansetron 8 mg disintegrating tablet 8 mg PO Q4H PRN #60 tab 03/08/21 [Rx Confirmed 03/11/21] atorvastatin 10 mg tablet 10 mg PO QAM 03/11/21 [History Confirmed 03/11/21] cholecalciferol (vitamin D3) 50 mcg (2,000 unit) capsule (Vitamin D3) 50 mcg PO QAM 03/11/21 [History Confirmed 03/11/21] Discontinued Medications Hydralazine HCl (Hydralazine Hcl 20 Mg/Ml Vial) 10 mg IV NOW STA Stop: 03/13/21 20:00 Last Admin: 03/13/21 20:08 Dose: 10 mg Documented by: [id number] Hydralazine HCl (Hydralazine Hcl 20 Mg/Ml Vial) 10 mg IV NOW STA Stop: 03/13/21 21:00 Last Admin: 03/13/21 21:04 Dose: 10 mg Documented by: [id number] Metoclopramide HCl (Metoclopramide Hcl Inj 5 Mg/Ml 2 Ml Vial) 5 mg IV ONE ONE Stop: 03/13/21 19:12 Last Admin: 03/13/21 19:44 Dose: 5 mg Documented by: [id number] Ondansetron HCl (Ondansetron Inj 2 Mg/Ml 2 Ml Vial) 4 mg IV NOW STA Stop: 03/13/21 19:12 Last Admin: 03/13/21 19:44 Dose: 4 mg Documented by: [id number] Ondansetron HCl (Ondansetron Inj 2 Mg/Ml 2 Ml Vial) 4 mg IV NOW STA Stop: 03/13/21 20:00 Last Admin: 03/13/21 20:08 Dose: 4 mg Documented by: [id number] ECG Additional Comments: Pending on admission Code Status & VTE Plan Code Status CODE: FULL VTE: SCDs, Coumadin VTE Prophylaxis Plan VTE Prophylaxis will be ordered: Yes Supervising Physician Co-Signing Physician Notes Patient seen and examined, chart reviewed, case discussed with RADHIKA Crooks and I agree with his assessment and plan as above. In brief, patient is a 50yo male with ESRD on HD as well as HTN, GERD, DM and CAD. Patient presenting with nausea and vomiting since this AM. Occurs frequently. Unable to tolerate PO or keep down medications. On exam he is afebrile, hypertensive otherwise stable Ill in appearance, vomiting into emesis bag. Non-bloody/non-bilious Dry MM, Neck supple +S1/S2, regular, no m/r/g Lungs - CTA Abd- +BS, soft, NT/ND Ext - no edema PleurX catheter in place Labs and images reviewed Assessment/Plan -Symptomatic management of nausea/vomiting. Cautious use as patient with prolonged qt interval -IVF and electroltye repletion -PleurX drainage tomorrow if needed -Remainder of plan as above PG Care Time/CCT Total # of Minutes Spent Total Time Spent with Patient: Total time spent is greater than 50% in coordination of care (as documented) at patient's floor/unit and/or counseling patient: Coding Level of Care Code INT OBSERVATION CARE 70M LVL 3 Diagnoses Cyclic vomiting syndrome R11.15 Pleural effusion J90 Anticoagulated on warfarin Z79.01 Malnourished E44.0 Malnutrition type: protein-calorie malnutrition Protein-calorie malnutrition severity: moderate Diabetic gastroparesis E11.43; K31.84 Nonischemic cardiomyopathy I42.8 Hypertension I10 Hypertension type: unspecified ESRD (end stage renal disease) N18.6 Controlled type 1 diabetes mellitus with diabetic neuropathy, with long-term current use of insulin E10.40 (1) Malnourished Malnutrition type: protein-calorie malnutrition Protein-calorie malnutrition severity: moderate Qualified Code(s): E44.0 - Moderate protein-calorie malnutrition (2) Hypertension Hypertension type: unspecified Qualified Code(s): I10 - Essential (primary) hypertension
[2021-03-13] MEDS ORDERED: ONDANSETRON INJ 2 MG/ML 2 ML VIAL IV PRN (22:09)
[2021-03-13] MEDS ORDERED: PROCHLORPERAZINE 1 ML IV STA (23:18)
[2021-03-13] MEDS ORDERED: METOCLOPRAMIDE HCL 5 MG TABLET PO PRN (23:22)
[2021-03-13] MEDS ORDERED: POLYETHYLENE (MIRALAX) 17 GM PACK PO PRN (23:22)
[2021-03-13] MEDS ORDERED: ACETAMINOPHEN 325 MG TAB PO PRN (23:22)
[2021-03-13] MEDS ORDERED: LORazepam 0.5 MG TAB PO PRN (23:22)
[2021-03-13] MEDS: LACTATED RINGER'S 1,000 ML IV SCH (23:25)
[2021-03-14] MEDS ORDERED: ONDANSETRON 4 MG OD TAB PO PRN (00:15)
[2021-03-14] MEDS ORDERED: CARBOHYDRATES FOR HYPOGLYCEMIA PO PRN (00:15)
[2021-03-14] MEDS ORDERED: GLUCOSE 10 TABS/TUBE PO PRN (00:15)
[2021-03-14] MEDS ORDERED: GLUCAGON FOR INJ 1 MG VIAL IM PRN (00:15)
[2021-03-14] MEDS ORDERED: DEXTROSE 50% 50 ML SYRINGE IV PRN (00:15)
[2021-03-14] MEDS ORDERED: GLUCOSE 40% GEL 15 GM TUBE PO PRN (00:15)
[2021-03-14 06:06] LABS: Basophils # (auto) 0.01 K/uL (0-0.2); Basophils % (auto) 0.1 %; Hematocrit (blood only) 35.9 % (42-52); Hemoglobin 12.1 g/dL (14.0-18.0); Immature Granulocytes # (auto) 0.02 K/uL (0.00-0.02); Immature Granulocytes % (auto) 0.2 %; Lymphocytes # (auto) 0.63 K/uL (1.2-3.4); Lymphocytes % (auto) 7.4 %; Mean Corpuscular Hemoglobin 32.4 pg (25-34); Mean Corpuscular Hgb Conc 33.7 g/dL (32-36); Mean Corpuscular Volume 96.2 fL (80-100); Mean Platelet Volume 8.7 fL (7.4-10.4); Monocytes # (auto) 0.66 K/uL (0.11-0.59); Monocytes % (auto) 7.8 %; Neutrophils # (auto) 7.18 K/uL (1.4-6.5); Neutrophils % (auto) 84.5 %; Platelet Count 363 K/uL (130-400); RDW Coefficient of Variation 14.6 % (11.5-14.5); RDW Standard Deviation 51.4 fL (36.4-46.3); Red Blood Count 3.73 M/uL (4.7-6.1)
[2021-03-14 06:20] LABS: INR 1.9 (0.9-1.1); Prothrombin Time 18.4 Seconds (9.0-12.0)
[2021-03-14 06:57] LABS: BUN Creatinine Ratio 6.9 (10-20); Calcium 8.4 mg/dl (8.5-10.1); Creatinine Clr Calc Pharmacy 18.3 ml/min; Est GFR (African American) 16.1 ml/min; Est GFR (Non-African American) 13.9 ml/min; Magnesium 2.1 mg/dl (1.8-2.4); Potassium 4.7 mmol/L (3.5-5.1)
[2021-03-14] MEDS ORDERED: carvediloL 25 MG TAB PO SCH (08:00)
[2021-03-14] MEDS ORDERED: buPROPion SR 100 MG TABCR PO SCH (09:00)
[2021-03-14] MEDS ORDERED: ATORVASTATIN 10 MG TAB PO SCH (09:00)
[2021-03-14] MEDS ORDERED: INSULIN GLARGINE SOLOSTAR 100 UNITS/ML 3 ML PEN SQ SCH (09:00)
[2021-03-14] MEDS ORDERED: PANTOprazole 40 MG TAB PO SCH (09:00)
[2021-03-14] MEDS ORDERED: LOSARTAN POTASSIUM 50 MG TAB PO SCH (09:00)
[2021-03-14] MEDS ORDERED: SERTRALINE HCL 100 MG TABLET PO SCH (09:00)
[2021-03-14] MEDS ORDERED: amLODIPine BESYLATE 5 MG TAB PO SCH (09:00)
[2021-03-14] MEDS ORDERED: NEPHROCAPS PO SCH (09:00)
[2021-03-14] MEDS ORDERED: CHOLECALCIFEROL 1,000 UNITS 25 MCG TAB PO SCH (09:00)
--- NOTE | 2021-03-14 09:30 | XRay Report ---
XR chest 1V portable INDICATION: MN ^evaluate plueral effusion left. TECHNIQUE: Single frontal radiograph of the chest was obtained. Comparison: Comparison is made to chest one view 03/13/2021 FINDINGS: Left pleural catheter is again seen in the left thorax. The cardiomediastinal silhouette is normal. T he lungs are clear. No evidence of pleural effusion or pneumothorax. IMPRESSION: No left pleural effusion is seen. Left pleural catheter is in place. ACT 112: Negative or not required by law. Electronically signed by: Maninder Cohen M.D. 03/14/2021 9:29 AM
[2021-03-14] MEDS ORDERED: PHARMACY GLYCEMIC MGMT CONSULT PRN (10:38)
--- NOTE | 2021-03-14 10:38 | Hospitalist Progress Note ---
Date of Service March 14, 2021 Assessment & Plan (1) Cyclic vomiting syndrome: Plan: Acute on chronic problem again following after dialysis this morning - Symptoms improving- bilious emesis last at 1930 - follow QT - slightly prolonged on admission QT of 440, QTc of 535 - Continue Zofran, Reglan, Ativan, - LR overnight - 80 ml/hr - normal KUB - Palliative care has been following him- continue as outpatient (2) Pleural effusion: Plan: With Pleurx catheter in place, visualized CXR with no residual effusion - no need for acute drainage - drain in am or next day (3) Anticoagulated on warfarin: Plan: On for PE in November - INR 2.0 on admission, now 1.9, maybe from vomiting meds - Coumadin 2.5mg MF, 5mg x 5 days- adjusted 03/08/21 (4) Malnourished: Plan: Supportive care (5) Diabetic gastroparesis: Plan: likely responsible for vomiting (6) Nonischemic cardiomyopathy: Plan: HFrEF- ECHO in 11/26- LV 40-44%, concentric LV wall thickness, Normal valves Continue Carvedilol Continue Losartan Continue atorvastatin (7) Hypertension: Plan: As above - IV support with hydralazine for SBP >205 or DBP >110 - no acute need to control at this time asymptomatic (8) ESRD (end stage renal disease): Plan: Dialysis MWF - follows [facility] - Consult them if patient unable to be discharged in morning (9) Controlled type 1 diabetes mellitus with diabetic neuropathy, with long-term current use of insulin: Plan: Continue Glargine 12 units qam as BG allows - Add back aspart if tolerating oral intake by morning Admission and Anticipated Discharge Date Admission Date: March 13, 2021 Results & Data Results & Data ([facility]) Vital Signs (Past 12 Hours) Vital Signs Temp Pulse Resp BP Pulse Ox 03/14/21 10:13 134/67 03/14/21 07:18 98.8 F 96 H 16 175/79 H 96 03/13/21 23:22 98.2 F 83 20 124/56 L 96 PG Care Time/CCT Total # of Minutes Spent Total Time Spent with Patient: Total time spent is greater than 50% in coordination of care (as documented) at patient's floor/unit and/or counseling patient: Coding Diagnoses Cyclic vomiting syndrome R11.15 Pleural effusion J90 Anticoagulated on warfarin Z79.01 Malnourished E44.0 Malnutrition type: protein-calorie malnutrition Protein-calorie malnutrition severity: moderate Diabetic gastroparesis E11.43; K31.84 Nonischemic cardiomyopathy I42.8 Hypertension I10 Hypertension type: unspecified ESRD (end stage renal disease) N18.6 Controlled type 1 diabetes mellitus with diabetic neuropathy, with long-term current use of insulin E10.40 (1) Malnourished Malnutrition type: protein-calorie malnutrition Protein-calorie malnutrition severity: moderate Qualified Code(s): E44.0 - Moderate protein-calorie malnutrition (2) Hypertension Hypertension type: unspecified Qualified Code(s): I10 - Essential (primary) hypertension
[2021-03-14] MEDS: LACTATED RINGER'S 1,000 ML IV SCH (11:22)
[2021-03-14] MEDS ORDERED: INSULIN ASPART 100 UNITS/ML 3 ML PEN SC SCH (11:30)
--- NOTE | 2021-03-14 14:22 | Pharmacy Report ---
Pharmacy Glycemic Short Note 2 - Date of Service March 14, 2021 - Glycemic Short BSG Results (Last 24 hours): 03/13/21 03/13/21 03/14/21 19:30 23:16 05:29 Glucose 134 H 291 H POC Glucose 179 H 03/14/21 03/14/21 08:04 12:05 Glucose POC Glucose 282 H 229 H OUTPATIENT ANTIDIABETIC REGIMEN: * Lantus 12 units QAM * Novolog 5 units AC ASSESSMENT: * Mr De Los Santos is a 50 y/o with Type 1 diabetes well known to the pharmacy glycemic service. Currently admitted for cyclic vomiting. He has had recent admission in the past two months for nausea/vomiting. * Utilized basal/ bolus insulin with Lantus and Novolog with dose and parameters the same as his January admission to start with. Will make changes based on BSG trends and dependent on his oral intake. * Patient has ESRD and on chronic hemodialysis. PLAN FOR INPATIENT GLYCEMIC CONTROL: * Basal insulin * Lantus 12 units SQ QAM * Bolus insulin * NovoLog per scale ACHS or Q6hrs while NPO * Goal Range: Low 110 mg/dL - High 150 mg/dL * Correction Factor: 40 mg/dL/unit * Nutritional / Prandial insulin per carb ratio of 1 unit per 9 grams CHO consumed PLAN FOR DISCHARGE: * Continue home insulin regimen managed by outpatient provider if patient is not complaining of hypoglycemia.
[2021-03-14] MEDS ORDERED: WARFARIN SOD 2.5 MG TAB PO SCH (16:00)
--- NOTE | 2021-03-14 18:04 | Discharge Summary ---
Date of Service March 14, 2021 Admission HPI Per Admitting Provider 50-year-old patient with history of cyclic vomiting syndrome, type 1 diabetes with diabetic neuropathy and end-stage renal disease on dialysis, CAD, gastroparesis currently anticoagulated on Coumadin for PE in November 26, comes to the ER from home with nausea and vomiting that started around 1030 this morning, after dialysis. This has been consistent with his most recent EMD visits and admissions. The patient states he has not been able to keep his medications down since this morning. He was given 2 doses of Hydralazine in the EMD for elevated BP in the 160-180 range. He was also given Reglan 5mg, Zofran 4mg x2. He states he feels somewhat better at current. He has not tried any Ativan or any of his other antiemetics. Patient will be observed overnight for symptom control, liquid bland diet, gentle IVF overnight as his lips are very dry and so is his mouth. His last BM was yesterday and was normal. Patient also has a Pleurx catheter in place that was placed for re-occurring pleural effusions on his left side. He normally drains this every 2 days- he last drained it on Thursday. His CXR in the EMD shows no reaccumulation at this time or need for acute drainage on admission. Patient has had his COVID vaccination and his COVID test on admission is: NEGATIVE Principal Diagnosis recurrent vomiting after dialysis gastroparesis secondary to diabetes chronic pleural effusion due to esrd Discharge Exam The patient appeared chronically ill Vital signs as documented. Lungs are clear to auscultation and appear unlabored Cardiac exam, Rhythm is regular.. No murmurs, rubs or gallops. Abdominal exam reveals hypoactive bowel sounds, soft non tender Extremities are nonedematous and both pedal pulses are normal. Neurologic exam is alert and oriented, no focal loss of strength or sensation Skin is without bruises or rashes Psychologically is without concerns for anxiety or depression. Discharge Data Allergies Allergy/AdvReac Type Severity Reaction Status Date / Time shellfish derived Allergy Severe anaphylaxis Verified 03/13/21 21:27 codeine Allergy Intermediate Hives Verified 03/13/21 21:27 promethazine Allergy Intermediate itchy/hives Verified 03/13/21 21:27 Consultations 03/13/21 20:59 ED Decision to Admit Stat Hospital Course (1) Cyclic vomiting syndrome: Acute on chronic problem following after dialysis on the day of presentation. PT feels that this is due to taking off fluid - Symptoms resolved -pt is following outpt tertiary care for gastroparesis - Continue Zofran, Reglan, Ativan, - normal KUB - Palliative care has been following him- continue as outpatient (2) Pleural effusion: With Pleurx catheter in place, visualized CXR with no residual effusion - cxr is clear - drain in am day of discharge (3) Anticoagulated on warfarin: On for PE in November - INR 2.0 on admission, now 1.9, maybe from vomiting meds - Coumadin 2.5mg MF, 5mg x 5 days- adjusted 03/08/21, will recommend recheck at dialysis (4) Malnourished: Supportive care (5) Diabetic gastroparesis: likely responsible for vomiting (6) Nonischemic cardiomyopathy: HFrEF- ECHO in 11/26- LV 40-44%, concentric LV wall thickness, Normal valves Continue Carvedilol Continue Losartan Continue atorvastatin (7) Hypertension: - no acute need to control at this time asymptomatic (8) ESRD (end stage renal disease): Dialysis MWF - follows with [facility] (9) Controlled type 1 diabetes mellitus with diabetic neuropathy, with long-term current use of insulin: Continue Glargine 12 units qam and aspartate as pre hospital Total Time Total Time Spent Total Time Spent (In Minutes): It required greater than 30 minutes to prepare t his patient for discharge Discharge Plan Discharge Items Patient Disposition: Home - Self-Care Reason For Visit: CYCLIC VOMITTING Discharge Diagnosis: uncontrolled vomiting diabetic gastroparesis chronic pleural effusion with pleurex cahteter in place Activity: Resume your previous activity Non-emergency contact: Primary Care Provider and [employer] Call non-emergency contact if: you have any medication questions Follow-up/Referrals: Abbi Ames MD [Primary Care Provider] - 03/25/21 10:15 am (With Simon Hill PA-C) Diet: Dialysis Renal Addtl Attending Provider Instructions: please continue to follow up with your GI specialist and research group director. continue to drain your lung catheter, and follow up with pulmonary medicine as scheduled please have your Coumadin level checked in the next few days, if they can check at dialysis tomorrow that will be great, if not please have it checked on thursday at your typical location if you eat a typical meal at home tonight please use your typical insulin coverage, and resume your pre dialysis insulin coverage tomorrow Pending Studies at Discharge: No Stand-Alone Forms: My [facility] Victor[employer], Smoking Cessation Medications and DC Order Prescriptions: Continued acetaminophen 325 mg capsule 650 mg PO Q4H PRN (Reason: Pain (Scale Score 1-3)) RF: 0 pantoprazole 40 mg tablet,delayed release (DR/EC) 40 mg PO BID Qty: 60 RF: 5 lorazepam 0.5 mg tablet 0.5 mg PO Q12 PRN (Reason: Anxiety) Qty: 60 RF: 0 carvedilol 25 mg tablet 25 mg PO BIDM RF: 0 melatonin 3 mg tablet 3 mg PO HS RF: 0 sertraline 100 mg tablet 100 mg PO QAM Qty: 90 RF: 0 insulin aspart U-100 [Novolog Flexpen U-100 Insulin] 100 unit/mL (3 mL) insulin pen 5 unit SUBCUT TIDM PRN (Reason: sliding scale) RF: 0 losartan 100 mg Tablet 100 mg PO QAM RF: 0 quetiapine [Seroquel] 25 mg tablet 25 mg PO HS Qty: 30 RF: 0 metoclopramide HCl 5 mg tablet 5 mg PO AC PRN (Reason: nausea and vomiting) Qty: 30 RF: 0 amlodipine [Norvasc] 5 mg Tablet 5 mg PO BID Qty: 60 RF: 0 atorvastatin 10 mg tablet 10 mg PO QAM RF: 0 Basaglar KwikPen U-100 Insulin 100 unit/mL (3 mL) insulin pen 12 unit SUBCUT QAM RF: 0 bupropion HCl 100 mg tablet sustained-release 12 hr 155 mg PO DAILY RF: 0 hydrocortisone 1 % Cream 1 applic TOPICAL Q6 PRN (Reason: Itching) RF: 0 Renal Vitamin 0.8 mg Tablet 1 tab PO DAILY RF: 0 cholecalciferol (vitamin D3) [Vitamin D3] 50 mcg (2,000 unit) Capsule 50 mcg PO DAILY RF: 0 ondansetron HCl 4 mg Tablet 4 mg PO Q4 PRN (Reason: nausea or vomiting) RF: 0 polyethylene glycol 3350 [Miralax] 17 gram/dose Powder 17 g PO DAILY PRN (Reason: Constipation) RF: 0 trimethobenzamide 300 mg Capsule 300 mg PO TID PRN (Reason: Nausea) RF: 0 darbepoetin jessee in polysorbat 60 mcg/0.3 mL Pen Injector 60 mcg SUBCUT .EVERY THURSDAY RF: 0 warfarin 5 mg Tablet 5 mg PO UD RF: 0 Discharge Orders: Discharge Order (Routine); Ordered 03/14/21 Ordered By: Dionicio Dockery/Other Patient Handouts: What to Know When TakingWarfarin Admission Data Admit Date/Time: 03/13/21 21:22 Attending Provider: Dionicio Haro Admit Provider: Marielos Cervantes Primary Care Provider: Abbi Ames V. Other Providers: Marielos Cervantes ; [facility],Home Healthcare Other Interventions: Discharge Summary Assessment (RN) Last Done: 03/14/21 15:35 Coding Level of Care Code D/C DAY MANAGEMENT >30 MINS Diagnoses Cyclic vomiting syndrome R11.15 Pleural effusion J90 Anticoagulated on warfarin Z79.01 Malnourished E44.0 Malnutrition type: protein-calorie malnutrition Protein-calorie malnutrition severity: moderate Diabetic gastroparesis E11.43; K31.84 Nonischemic cardiomyopathy I42.8 Hypertension I10 Hypertension type: unspecified ESRD (end stage renal disease) N18.6 Controlled type 1 diabetes mellitus with diabetic neuropathy, with long-term current use of insulin E10.40
[2021-03-14] MEDS ORDERED: QUEtiapine FUMARATE 25 MG TABLET PO SCH (21:00)
[2021-03-14] MEDS ORDERED: MELATONIN 3 MG TAB PO SCH (21:00)
[2021-03-15] MEDS ORDERED: WARFARIN SOD 5 MG TAB PO SCH (16:00)
--- NOTE | 2021-03-15 16:58 | Electrocardiogram Report ---
Test Reason : Blood Pressure : / mmHG Vent. Rate : 089 BPM Atrial Rate : 089 BPM P-R Int : 176 ms QRS Dur : 086 ms QT Int : 440 ms P-R-T Axes : 076 -33 083 degrees QTc Int : 535 ms Poor data quality, interpretation may be adversely affected Normal sinus rhythm Possible Left atrial enlargement Left axis deviation Nonspecific ST and T wave abnormality Prolonged QT Abnormal ECG When compared with ECG of 14-FEB-2021 08:28, QT has lengthened Confirmed by Dewayne Spivey ([id number]) on 03/15/2021 4:57:50 PM Referred By: REFERRED SELF Confirmed By:Pee Spivey
== END 2021-03-14 16:40 | disposition home or self-care (01) ==
LOC: 3N 18:56 → ED 18:56 → SUATTDRO 21:22 → 3N 22:38
DX: Z88.5 Allergy status to narcotic agent; Z88.8 Allergy status to other drugs, medicaments and biological substances; I12.0 Hypertensive chronic kidney disease with stage 5 chronic kidney disease or end stage renal disease; E10.43 Type 1 diabetes mellitus with diabetic autonomic (poly)neuropathy; K21.9 Gastro-esophageal reflux disease without esophagitis; E10.319 Type 1 diabetes mellitus with unspecified diabetic retinopathy without macular edema; I25.10 Atherosclerotic heart disease of native coronary artery without angina pectoris; N18.6 End stage renal disease; Z91.013 Allergy to seafood; I42.8 Other cardiomyopathies; E10.22 Type 1 diabetes mellitus with diabetic chronic kidney disease; Z79.899 Other long term (current) drug therapy; J90 Pleural effusion, not elsewhere classified; Z82.49 Family history of ischemic heart disease and other diseases of the circulatory system; Z79.01 Long term (current) use of anticoagulants; E46 Unspecified protein-calorie malnutrition; R11.15 Cyclical vomiting syndrome unrelated to migraine; Z20.822 Contact with and (suspected) exposure to COVID-19

== ENCOUNTER 2021-04-22 21:02 | Observation (INO) ==
[2021-04-22] MEDS ORDERED: SODIUM CHLORIDE 0.9% 1000ML 250 ML IV ONE (22:18)
[2021-04-22] MEDS ORDERED: METOCLOPRAMIDE HCL INJ 5 MG/ML 2 ML VIAL IV STA (22:18)
[2021-04-22] MEDS ORDERED: ONDANSETRON INJ 2 MG/ML 2 ML VIAL IV STA (22:18)
[2021-04-22] MEDS ORDERED: hydrALAZINE HCL 20 MG/ML VIAL IV STA ×2 (22:23→23:39)
--- NOTE | 2021-04-22 22:23 | Emergency Department Note ---
Impression & Plan Vomiting, ESRD (end stage renal disease), Gastroparesis, Hypertension ED Provider Note NAME: JERARDO PEREZ AGE: 50 SEX: M : 1970 ARRIVES VIA: Ambulance INFORMANT: Patient ED PROVIDER(S): Obie Lancaster DO CHIEF COMPLAINT: Vomiting HPI: Patient is a 50-year-old male well-known to the ER that presents the ER for vomiting. He notes his symptoms started yesterday with nausea. He has been unable to keep anything down today. This includes medications. He notes his blood pressures have been up he does have a little headache. Denies any chest pain or shortness of breath. No belly pain. He did receive a full course of dialysis today. No other exacerbating or remitting factors. This feels exact like her previous bouts. He denies any vomiting of blood currently. He does take Coumadin. ROS: See above HPI for pertinent positives & negatives. A total of 10 systems reviewed and were otherwise negative. PAST MEDICAL HISTORY:See Below PAST SURGICAL HISTORY:See Below FAMILY HISTORY:See Below SOCIAL HISTORY:See Below HOME MEDICATIONS:See Below ALLERGIES:See Below VITALS:See Below PHYSICAL EXAMINATION: GENERAL: Sitting up in bed, alert, cachectic, ill-appearing, holding a bag full of vomit EYE EXAM: normal conjunctiva. PERRL and EOM's grossly intact. OROPHARYNX: no exudate, no erythema, lips, buccal mucosa, and tongue normal and mucous membranes are moist NECK: supple, no nuchal rigidity, no adenopathy, non-tender LUNGS: Clear to auscultation. Normal chest wall mechanics HEART: no murmurs, S1 normal and S2 normal ABDOMEN: abdomen soft, non-tender, normo-active bowel sounds, no masses, no rebound or guarding. UPPER EXTREMITIES: upper extremities are grossly normal. LOWER EXTREMITIES: No pitting edema. NEURO EXAM: Normal sensorium, cranial nerves II-XII grossly intact, normal speech, no gross weakness of arms, no gross weakness of legs. MEDICAL DECISION MAKING: Patient is a 50-year-old male well-known to the ER the presents the ER for vomiting and hypertension. IV was established blood was obtained. Labs show no significant leukocytosis. No anemia. INR was therapeutic at 2. BMP with mild hyponatremia. BUN elevated 26. Creatinine at 4. LFTs bilirubin was unremarkable. Lipase is normal. Covid was negative. He has no belly pain or chest pain. He was given multiple doses of hydralazine and still remained hypertensive with systolic pressures in the 170s to 180s. Patient was updated bedside. Discussed with the hospitalist. He was also given multiple doses of antiemetics. He continued to vomit. Admitted for further work-up. Triage Nursing notes reviewed. Limited review of prior medical records performed Vital Signs: reviewed and remarkable for HTN Differential diagnosis: Differential diagnoses includes but is not limited to acute coronary syndrome, myocardial infarction, pericarditis, pulmonary embolus, aortic dissection, pneumonia, pneumothorax, musculoskeletal, shingles, esophageal. ER treatment provided: See below Diagnostics interpreted by me: ECG: none Cardiac Monitoring: An order was placed for continuous cardiac monitoring. The monitor shows a rate of 92 with sinus rhythm. Laboratory studies: As stated above and show below. Imaging studies: See below Consultation(s): Discussed with Dr. Olga Cervantes for further evaluation Procedures: none Critical Care: None Past Med/Surg History Medical History Anemia of chronic disease Anxiety AV fistula CAD (coronary artery disease) Cardiac murmur Chronic pleural effusion Depression Diabetes Diabetic retinopathy Dialysis patient Encounter for pre-operative examination ESRD (end stage renal disease) Gastroparesis GERD (gastroesophageal reflux disease) History of pulmonary embolism Hypertension Kidney stones Lumbar radiculopathy Peripheral neuropathy Retinopathy due to secondary diabetes Severe protein-calorie malnutrition Surgical History H/O shoulder surgery History of appendectomy History of cardiac cath History of cataract surgery History of esophagogastroduodenoscopy (EGD) (~03/08/20) History of hip surgery History of lithotripsy History of open reduction and internal fixation (ORIF) procedure Nausea and vomiting after administration of anesthetic agent Permanent central venous catheter in place S/P arteriovenous (AV) fistula creation Family History Grandfather Myocardial infarction Grandfather (Maternal) Family history of diabetes mellitus Uncle Myocardial infarction Father Hypertension Mother Kidney stone Other No family history of adverse response to anesthesia Denies family history of Colon cancer Ovarian cancer Prostate cancer Breast cancer Social History Smoking Status: Never smoker Second Hand Exposure: No; Hx Alcohol Use: No Hx Substance Use: No Preferred Language: Kittitian Communication Ability: Effective Visual Impairment: No Limitations Hearing Ability: Normal Research Spec Required: No Beliefs That Will Affect Care: None marital status: Single Current Living Situation: Parent Current Living Situation Comment: lives with parents. current occupational status: disabled How many Children do You have: 2 Feels Safe at Home: Yes Childhood Exposure to Second-Hand Smoke: Yes Dental Care, Regularly: No Physical Activity Frequency: 1-2 Times per Week Seatbelt Use: always Sunscreen Use: No Assistive Devices: Cane Allergies Allergies Allergy/AdvReac Type Severity Reaction Status Date / Time shellfish derived Allergy Severe anaphylaxis Verified 04/22/21 11: codeine Allergy Intermediate Hives Verified 04/22/21 11: promethazine Allergy Intermediate itchy/hives Verified 04/22/21 11:21 Home Meds Home Medications Medication Instructions Recorded Confirmed melatonin 3 mg tablet 3 mg PO HS tab 09/05/20 04/22/21 acetaminophen 325 mg capsule 650 mg PO Q4H PRN cap 09/28/20 04/22/21 carvedilol 25 mg tablet 25 mg PO BIDM tab 10/01/20 04/22/21 losartan 100 mg tablet 100 mg PO QAM 11/29/20 04/22/21 atorvastatin 10 mg tablet 10 mg PO QAM 03/11/21 04/22/21 bupropion HCl 100 mg tablet,12 hr 155 mg PO DAILY 03/13/21 04/22/21 sustained-release trimethobenzamide 300 mg capsule 300 mg PO TID PRN 03/13/21 04/22/21 vitamin B complex-vitamin C-folic 1 tab PO DAILY 03/13/21 04/22/21 acid 0.8 mg tablet (Renal Vitamin) insulin glargine 100 unit/mL (3 14 unit SUBCUT QAM ml 03/19/21 04/22/21 mL) subcutaneous pen (Basaglar KwikPen U-100 Insulin) mirtazapine 15 mg tablet (Remeron) 7.5 mg PO DAILY tab 03/19/21 04/22/21 ondansetron HCl 4 mg tablet 8 mg PO Q4 PRN tab 03/19/21 04/22/21 warfarin 5 mg tablet See Rx Instructions PO UD 04/10/21 04/22/21 Previous Rx's Medication Instructions Recorded sertraline 100 mg tablet 100 mg PO QAM #90 tab 12/11/20 metoclopramide HCl 5 mg tablet 5 mg PO AC PRN #30 tab 01/07/21 quetiapine 25 mg tablet (Seroquel) 25 mg PO HS #30 tab 01/07/21 pantoprazole 40 mg tablet,delayed 40 mg PO BID #60 tab 02/12/21 release amlodipine 5 mg tablet (Norvasc) 5 mg PO BID #60 tab 02/17/21 lorazepam 0.5 mg tablet 0.5 mg PO Q6H PRN #60 tab 03/27/21 insulin aspart U-100 100 unit/mL 5 unit SUBCUT TIDM PRN #15 ml 04/02/21 (3 mL) subcutaneous pen (Novolog Flexpen U-100 Insulin aspart) cholecalciferol (vitamin D3) 50 50 mcg PO DAILY #90 cap 04/12/21 mcg (2,000 unit) capsule (Vitamin D3) Results & Data (ED) Vital Signs Vital Signs - 24 hr 04/22/21 21:19 04/22/21 21:38 04/22/21 23:16 Temperature 37 C Temperature Source Oral Pulse Rate 86 87 Pulse Rate [Finger] 86 93 H Blood Pressure 187/93 H Blood Pressure [Right Arm] 187/93 H 178/77 H Blood Pressure Mean 124 Blood Pressure Mean [Right Arm] 124 110 Pulse Oximetry 98 99 99 Oxygen Delivery Method Room Air Room Air Room Air Sepsis Recent Fever Within 48 Hours No Sepsis New/Unexplained Change in Mental Status N/A Sepsis Action Taken by Nursing No Action Required 04/23/21 01:00 Temperature Temperature Source Pulse Rate Pulse Rate [Finger] 96 H Blood Pressure Blood Pressure [Right Arm] 170/76 H Blood Pressure Mean Blood Pressure Mean [Right Arm] 107 Pulse Oximetry 98 Oxygen Delivery Method Room Air Sepsis Recent Fever Within 48 Hours Sepsis New/Unexplained Change in Mental Status Sepsis Action Taken by Nursing Laboratory Data Result diagrams: 04/22/21 Unknown 04/22/21 Unknown Lab Results 04/22/21 04/22/21 04/22/21 Range/Units Unknown Unknown Unknown WBC 9.83 (4.8-10.8) K/uL RBC 3.86 L (4.7-6.1) M/uL Hgb 12.6 L (14.0-18.0) g/dL Hct 37.9 L (42-52) % MCV 98.2 (80-100) fL MCH 32.6 (25-34) pg MCHC 33.2 (32-36) g/dL RDW Std Deviation 45.2 (36.4-46.3) fL RDW Coeff of Kami 12.6 (11.5-14.5) % Plt Count 608 H (130-400) K/uL MPV 8.6 (7.4-10.4) fL Immature Gran % (Auto) 0.9 % Neut % (Auto) 81.5 % Lymph % (Auto) 9.7 % Cherry % (Auto) 6.7 % Eos % (Auto) 0.7 % Baso % (Auto) 0.5 % Neut # (Auto) 8.01 H (1.4-6.5) K/uL Lymph # (Auto) 0.95 L (1.2-3.4) K/uL Cherry # (Auto) 0.66 H (0.11-0.59) K/uL Eos # (Auto) 0.07 (0-0.5) K/uL Baso # (Auto) 0.05 (0-0.2) K/uL Immature Gran # (Auto) 0.09 H (0.00-0.02) K/uL PT (9.0-12.0) Seconds INR (0.9-1.1) Sodium 131 L (136-145) mmol/L Potassium 4.1 (3.5-5.1) mmol/L Chloride 95 L (98-107) mmol/L Carbon Dioxide 24 (21-32) mmol/L Anion Gap 12.0 H (3-11) BUN 26 H (7-18) mg/dl Creatinine 4.64 H* (0.6-1.4) mg/dl Est Cr Clr Drug Dosing 17.0 ml/min Est GFR ( Amer) 15.8 ml/min Est GFR (Non-Af Amer) 13.7 ml/min BUN/Creatinine Ratio 5.6 L (10-20) Glucose 175 H (70-99) mg/dl Calcium 9.0 (8.5-10.1) mg/dl Total Bilirubin 0.4 (0.2-1) mg/dl AST 27 (15-37) U/L ALT 57 (12-78) U/L Alkaline Phosphatase 180 H (45-117) U/L Total Protein 8.2 (6.4-8.2) gm/dl Albumin 3.5 (3.4-5.0) gm/dl Globulin 4.7 H (2.5-4.0) gm/dl Albumin/Globulin Ratio 0.7 L (0.9-2) Lipase 114 (73-393) U/L COVID-19 Eval Order Covid19 at [facility] SARS-CoV-2 (PCR) (Negative) 04/22/21 04/22/21 Range/Units Unknown Unknown WBC (4.8-10.8) K/uL RBC (4.7-6.1) M/uL Hgb (14.0-18.0) g/dL Hct (42-52) % MCV (80-100) fL MCH (25-34) pg MCHC (32-36) g/dL RDW Std Deviation (36.4-46.3) fL RDW Coeff of Kami (11.5-14.5) % Plt Count (130-400) K/uL MPV (7.4-10.4) fL Immature Gran % (Auto) % Neut % (Auto) % Lymph % (Auto) % Cherry % (Auto) % Eos % (Auto) % Baso % (Auto) % Neut # (Auto) (1.4-6.5) K/uL Lymph # (Auto) (1.2-3.4) K/uL Cherry # (Auto) (0.11-0.59) K/uL Eos # (Auto) (0-0.5) K/uL Baso # (Auto) (0-0.2) K/uL Immature Gran # (Auto) (0.00-0.02) K/uL PT 19.4 H (9.0-12.0) Seconds INR 2.0 H (0.9-1.1) Sodium (136-145) mmol/L Potassium (3.5-5.1) mmol/L Chloride (98-107) mmol/L Carbon Dioxide (21-32) mmol/L Anion Gap (3-11) BUN (7-18) mg/dl Creatinine (0.6-1.4) mg/dl Est Cr Clr Drug Dosing ml/min Est GFR ( Amer) ml/min Est GFR (Non-Af Amer) ml/min BUN/Creatinine Ratio (10-20) Glucose (70-99) mg/dl Calcium (8.5-10.1) mg/dl Total Bilirubin (0.2-1) mg/dl AST (15-37) U/L ALT (12-78) U/L Alkaline Phosphatase (45-117) U/L Total Protein (6.4-8.2) gm/dl Albumin (3.4-5.0) gm/dl Globulin (2.5-4.0) gm/dl Albumin/Globulin Ratio (0.9-2) Lipase (73-393) U/L COVID-19 Eval Order SARS-CoV-2 (PCR) NEGATIVE (Negative) Administered Medications Discontinued Medications Hydralazine HCl (Hydralazine Hcl 20 Mg/Ml Vial) 10 mg IV NOW STA Stop: 04/22/21 22:24 Last Admin: 04/22/21 22:32 Dose: 10 mg Documented by: [id number] Hydralazine HCl (Hydralazine Hcl 20 Mg/Ml Vial) 10 mg IV NOW STA Stop: 04/22/21 23:40 Last Admin: 04/22/21 23:50 Dose: 10 mg Documented by: [id number] Sodium Chloride (Nss 1000ml) 250 mls @ 999 mls/hr IV .Q16M ONE Stop: 04/22/21 22:33 Last Infusion: 04/22/21 22:45 Dose: 0 mls/hr Documented by: [id number] Admin: 04/22/21 22:32 Dose: 999 mls/hr Documented by: [id number] Metoclopramide HCl (Metoclopramide Hcl Inj 5 Mg/Ml 2 Ml Vial) 10 mg IV NOW STA Stop: 04/22/21 22:19 Last Admin: 04/22/21 22:33 Dose: 10 mg Documented by: [id number] Ondansetron HCl (Ondansetron Inj 2 Mg/Ml 2 Ml Vial) 4 mg IV NOW STA Stop: 04/22/21 22:19 Last Admin: 04/22/21 22:33 Dose: 4 mg Documented by: [id number] Discharge Plan Visit Data Chief Complaint: Vomiting Stated Complaint: Vomiting ED Provider: Obie Lancaster Discharge Problem: Vomiting, ESRD (end stage renal disease), Gastroparesis, Hypertension Forms Stand Alone Forms: My [facility] [employer] Prescriptions Prescriptions: No Action acetaminophen 325 mg capsule 650 mg PO Q4H PRN (Reason: Pain (Scale Score 1-3)) RF: 0 pantoprazole 40 mg tablet,delayed release (DR/EC) 40 mg PO BID Qty: 60 RF: 5 lorazepam 0.5 mg tablet 0.5 mg PO Q6H PRN (Reason: Anxiety) Qty: 60 RF: 0 insulin aspart U-100 [Novolog Flexpen U-100 Insulin] 100 unit/mL (3 mL) insulin pen 5 unit SUBCUT TIDM PRN (Reason: sliding scale) Qty: 15 RF: 5 cholecalciferol (vitamin D3) [Vitamin D3] 50 mcg (2,000 unit) capsule 50 mcg PO DAILY Qty: 90 RF: 3 carvedilol 25 mg tablet 25 mg PO BIDM RF: 0 melatonin 3 mg tablet 3 mg PO HS RF: 0 sertraline 100 mg tablet 100 mg PO QAM Qty: 90 RF: 0 mirtazapine [Remeron] 15 mg tablet 7.5 mg PO DAILY RF: 0 losartan 100 mg Tablet 100 mg PO QAM RF: 0 quetiapine [Seroquel] 25 mg tablet 25 mg PO HS Qty: 30 RF: 0 metoclopramide HCl 5 mg tablet 5 mg PO AC PRN (Reason: nausea and vomiting) Qty: 30 RF: 0 amlodipine [Norvasc] 5 mg Tablet 5 mg PO BID Qty: 60 RF: 0 atorvastatin 10 mg tablet 10 mg PO QAM RF: 0 bupropion HCl 100 mg tablet sustained-release 12 hr 155 mg PO DAILY RF: 0 Renal Vitamin 0.8 mg Tablet 1 tab PO DAILY RF: 0 trimethobenzamide 300 mg Capsule 300 mg PO TID PRN (Reason: Nausea) RF: 0 Basaglar KwikPen U-100 Insulin 100 unit/mL (3 mL) insulin pen 14 unit SUBCUT QAM RF: 0 ondansetron HCl 4 mg tablet 8 mg PO Q4 PRN (Reason: nausea or vomiting) RF: 0 warfarin 5 mg tablet See Rx Instructions PO UD RF: 0 Referrals Referrals: Abbi Ames MD [Primary Care Provider] -
[2021-04-22 22:28] LABS: Basophils # (auto) 0.05 K/uL (0-0.2); Basophils % (auto) 0.5 %; Eosinophils # (auto) 0.07 K/uL (0-0.5); Eosinophils % (auto) 0.7 %; Hematocrit (blood only) 37.9 % (42-52); Hemoglobin 12.6 g/dL (14.0-18.0); Immature Granulocytes # (auto) 0.09 K/uL (0.00-0.02); Immature Granulocytes % (auto) 0.9 %; Lymphocytes # (auto) 0.95 K/uL (1.2-3.4); Lymphocytes % (auto) 9.7 %; Mean Corpuscular Hemoglobin 32.6 pg (25-34); Mean Corpuscular Hgb Conc 33.2 g/dL (32-36); Mean Corpuscular Volume 98.2 fL (80-100); Mean Platelet Volume 8.6 fL (7.4-10.4); Monocytes # (auto) 0.66 K/uL (0.11-0.59); Monocytes % (auto) 6.7 %; Neutrophils # (auto) 8.01 K/uL (1.4-6.5); Neutrophils % (auto) 81.5 %; Platelet Count 608 K/uL (130-400); RDW Coefficient of Variation 12.6 % (11.5-14.5); RDW Standard Deviation 45.2 fL (36.4-46.3); Red Blood Count 3.86 M/uL (4.7-6.1); White Blood Count 9.83 K/uL (4.8-10.8)
[2021-04-22 22:53] LABS: Prothrombin Time 19.4 Seconds (9.0-12.0)
[2021-04-22 23:45] LABS: Albumin Globulin Ratio 0.7 (0.9-2); Albumin Level 3.5 gm/dl (3.4-5.0); BUN Creatinine Ratio 5.6 (10-20); Bilirubin,Total 0.4 mg/dl (0.2-1); Est GFR (African American) 15.8 ml/min; Est GFR (Non-African American) 13.7 ml/min; Globulin 4.7 gm/dl (2.5-4.0); Potassium 4.1 mmol/L (3.5-5.1); Total Protein 8.2 gm/dl (6.4-8.2)
--- NOTE | 2021-04-23 03:26 | History & Physical Report ---
Date of Service April 23, 2021 Assessment & Plan (1) Nausea & vomiting: Plan: Patient with history of cyclic vomiting, gastroparesis as well as anxiety that contribute to his nausea. States he has taken Compazine, Zofran and Ativan at home prior to arrival with no improvement. -Observation to medical -LR at 80mL/hr x 1 liter -Zofran PRN -Continue REglan, Ativan, Trimethobenzamide (2) Hypertension: Plan: Elevated blood pressure on arrival. 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 No evidence of acute CHF -Continue Carvedilol -Continue Losartan (5) Diabetic gastroparesis: Plan: Chronic. -Continue Reglan, Zofran as above -Advance diet as tolerated (6) Pulmonary embolism: Plan: On Coumadin anticoagulation -Continue Coumadin at home dosing -Monitor INR (7) Pleural effusion: Plan: Maintain PleurX catheter - change q M/W/F, monitor output (8) ESRD (end stage renal disease): Plan: On HD q M/W/F -Renal diet -Continue renal MVI (9) Anxiety: Plan: Chronic -Continue Sertraline -Continue Remeron -Continue bUPROPION -Ativan PRN (10) Depression: Plan: Chronic -Continue Remeron -Continue Sertraline -Continue Seroquel (11) CAD (coronary artery disease): Plan: Chronic -Continue Atorvastatin -Continue Losartan, Carvedilol (12) GERD (gastroesophageal reflux disease): Plan: Chronic -Continue Protonix 40 BID Plan: F/E/N - LR at 80mL/hr x 1 liter, monitor electrolytes, Type I/ESRD diet as tolerated Ppx - SCDs, continue Protonix Code- Full per discussion with patient Dispo - Observation to medical Admission and Anticipated Discharge Date Admission Date: April 23, 2021 History of Present Illness Chief Complaint: nausea Primary Care Provider: Abbi Ames MD Jorge Alberto De Los Santos is a 50yo male with history of cyclic vomiting, Type I DM, ESRD on HD q M/W/F, CAD, Gastroparesis, prior PE in November 26 presenting with 2 days of nausea. Patient reports nausea with > 10 episodes of non-bloody/non-bilious vomiting. He has been unable to keep anything down. He tried taking Compazine, Zofran and Ativan at home with little improvement. He had HD today. Has seen GI at [facility] and was recently started on Remeron which he feels is improving his appetite and sleep. PleurX catheter in place on right. He drains it q // - appx 200mL of staci colored fluid. NO purulence or blood noted. No pain at PleurX site. No additional complaints at this time. ER Course: Hydralazine 10mg IV x 2, Reglan 10mg, Zofran, NSS Allergies Allergy/AdvReac Type Severity Reaction Status Date / Time shellfish derived Allergy Severe anaphylaxis Verified 04/22/21 11:21 codeine Allergy Intermediate Hives Verified 04/22/21 11:21 promethazine Allergy Intermediate itchy/hives Verified 04/22/21 11:21 Home Medications Medication Instructions Recorded Confirmed Type melatonin 3 mg tablet 3 mg PO HS tab 09/05/20 04/23/21 History acetaminophen 325 mg capsule 650 mg PO Q4H PRN cap 09/28/20 04/23/21 History carvedilol 25 mg tablet 25 mg PO BIDM tab 10/01/20 04/23/21 History losartan 100 mg tablet 100 mg PO QAM 11/29/20 04/23/21 History sertraline 100 mg tablet 100 mg PO QAM #90 tab 12/11/20 04/23/21 Rx metoclopramide HCl 5 mg tablet 5 mg PO AC PRN #30 tab 01/07/21 04/23/21 Rx quetiapine 25 mg tablet (Seroquel) 25 mg PO HS #30 tab 01/07/21 04/23/21 Rx pantoprazole 40 mg tablet,delayed 40 mg PO BID #60 tab 02/12/21 04/23/21 Rx release amlodipine 5 mg tablet (Norvasc) 5 mg PO BID #60 tab 02/17/21 04/23/21 Rx atorvastatin 10 mg tablet 10 mg PO QAM 03/11/21 04/23/21 History bupropion HCl 100 mg tablet,12 hr 155 mg PO DAILY 03/13/21 04/23/21 History sustained-release trimethobenzamide 300 mg capsule 300 mg PO TID PRN 03/13/21 04/23/21 History vitamin B complex-vitamin C-folic 1 tab PO DAILY 03/13/21 04/23/21 History acid 0.8 mg tablet (Renal Vitamin) insulin glargine 100 unit/mL (3 14 unit SUBCUT QAM ml 03/19/21 04/23/21 History mL) subcutaneous pen (Basaglar KwikPen U-100 Insulin) mirtazapine 15 mg tablet (Remeron) 7.5 mg PO DAILY tab 03/19/21 04/23/21 History ondansetron HCl 4 mg tablet 8 mg PO Q4 PRN tab 03/19/21 04/23/21 History lorazepam 0.5 mg tablet 0.5 mg PO Q6H PRN #60 tab 03/27/21 04/23/21 Rx insulin aspart U-100 100 unit/mL 5 unit SUBCUT TIDM PRN #15 ml 04/02/21 04/23/21 Rx (3 mL) subcutaneous pen (Novolog Flexpen U-100 Insulin aspart) warfarin 5 mg tablet See Rx Instructions PO UD 04/10/21 04/23/21 History cholecalciferol (vitamin D3) 50 50 mcg PO DAILY #90 cap 04/12/21 04/23/21 Rx mcg (2,000 unit) capsule (Vitamin D3) Past Med/Surg History Medical History (Updated 04/23/21 @ 03:24 by Marielos Cervantes DO) Anemia of chronic disease Anxiety AV fistula left upper arm CAD (coronary artery disease) mild, non-obstructive CAD per 10/2018 cardiac cath> [facility] Cardiac murmur follows with Dr. Powell Chronic pleural effusion PleurX catheter placed 01/24/21; pt reports emptying q2d Depression Diabetes Diabetic retinopathy Dialysis patient Encounter for pre-operative examination ESRD (end stage renal disease) M,W,F (Follows with Dr. Lor Guadalupe; [facility]) Gastroparesis GERD (gastroesophageal reflux disease) History of pulmonary embolism 11/2020; unk etiology; started on warfarin Hypertension Kidney stones Lumbar radiculopathy Peripheral neuropathy Retinopathy due to secondary diabetes Severe protein-calorie malnutrition Surgical History H/O shoulder surgery RIGHT History of appendectomy History of cardiac cath 10/2018= no stents, no obstructive disease (at [facility]) History of cataract surgery History of esophagogastroduodenoscopy (EGD) (~03/08/20) History of hip surgery left HIP ARTHROSCOPY History of lithotripsy History of open reduction and internal fixation (ORIF) procedure right hip Nausea and vomiting after administration of anesthetic agent Permanent central venous catheter in place Permacath has been removed S/P arteriovenous (AV) fistula creation Family History Grandfather Myocardial infarction Grandfather (Maternal) Family history of diabetes mellitus Uncle Myocardial infarction Father Hypertension Mother Kidney stone Other No family history of adverse response to anesthesia Denies family history of Colon cancer Ovarian cancer Prostate cancer Breast cancer Social History Smoking Status: Never smoker Second Hand Exposure: No; Hx Alcohol Use: No Hx Substance Use: No Preferred Language: Greenlandic Communication Ability: Effective Visual Impairment: No Limitations Hearing Ability: Normal Database Modeler Required: No Beliefs That Will Affect Care: None marital status: Single Current Living Situation: Parent Current Living Situation Comment: lives with parents. current occupational status: disabled How many Children do You have: 2 Feels Safe at Home: Yes Childhood Exposure to Second-Hand Smoke: Yes Dental Care, Regularly: No Physical Activity Frequency: 1-2 Times per Week Seatbelt Use: always Sunscreen Use: No Assistive Devices: Cane Review of Systems Review of Systems: All systems reviewed & are unremarkable except as noted in HPI & below +"Clammy" Physical Exam Physical Exam: General: chronically ill appearing male patient resting comfortably, NAD, AA&O x 4 Skin: warm, dry, intact, no rashes or lesions HEENT: NC/AT, PERRL, EOMI, anicteric sclera, conjunctiva without injection, external ear normal to inspection and nontender, nares patent, dry lips and mucus membranes, dentition intact, no oropharyngeal lesions, neck supple, trachea midline, no LAD, no thyromegaly, no JVD Heart: +S1/S2, regular, 2/6 GOKUL at LSB Lungs: equal air entry bilaterally, no rales/rhonchi/wheezes, PleurX in place right hemithorax, dressing in place c/d/i Abd: +BS, soft, NT/ND, no masses/organomegaly/ascites Ext: warm, 2+ pulses in UE/LE bilaterally, no clubbing/cyanosis or edema, LUE AV fistula with palpable thrill Neuro: nonfocal, patient AA&O x 4, speech intact, no facial droop, moving all extremities on command with equal strength 5/5 Results & Data Results & Data ([facility]) Vital Signs (Past 12 Hours) Vital Signs Temp Pulse Pulse BP BP Pulse Ox 04/23/21 01:00 96 H 170/76 H 98 04/22/21 23:16 93 H 178/77 H 99 04/22/21 21:38 87 99 04/22/21 21:19 37 C 86 86 187/93 H 187/93 H 98 Laboratory Results Laboratory Results WBC 9.83 K/uL (4.8-10.8) 04/22/21 Unknown RBC 3.86 M/uL (4.7-6.1) L 04/22/21 Unknown Hgb 12.6 g/dL (14.0-18.0) L 04/22/21 Unknown Hct 37.9 % (42-52) L 04/22/21 Unknown MCV 98.2 fL (80-100) 04/22/21 Unknown MCH 32.6 pg (25-34) 04/22/21 Unknown MCHC 33.2 g/dL (32-36) 04/22/21 Unknown RDW Std Deviation 45.2 fL (36.4-46.3) 04/22/21 Unknown RDW Coeff of Kami 12.6 % (11.5-14.5) 04/22/21 Unknown Plt Count 608 K/uL (130-400) H 04/22/21 Unknown MPV 8.6 fL (7.4-10.4) 04/22/21 Unknown Immature Gran % (Auto) 0.9 % 04/22/21 Unknown Neut % (Auto) 81.5 % 04/22/21 Unknown Lymph % (Auto) 9.7 % 04/22/21 Unknown [place] % (Auto) 6.7 % 04/22/21 Unknown Eos % (Auto) 0.7 % 04/22/21 Unknown Baso % (Auto) 0.5 % 04/22/21 Unknown Neut # (Auto) 8.01 K/uL (1.4-6.5) H 04/22/21 Unknown Lymph # (Auto) 0.95 K/uL (1.2-3.4) L 04/22/21 Unknown [place] # (Auto) 0.66 K/uL (0.11-0.59) H 04/22/21 Unknown Eos # (Auto) 0.07 K/uL (0-0.5) 04/22/21 Unknown Baso # (Auto) 0.05 K/uL (0-0.2) 04/22/21 Unknown Immature Gran # (Auto) 0.09 K/uL (0.00-0.02) H 04/22/21 Unknown PT 19.4 Seconds (9.0-12.0) H 04/22/21 Unknown INR 2.0 (0.9-1.1) H 04/22/21 Unknown Sodium 131 mmol/L (136-145) L 04/22/21 Unknown Potassium 4.1 mmol/L (3.5-5.1) 04/22/21 Unknown Chloride 95 mmol/L (98-107) L 04/22/21 Unknown Carbon Dioxide 24 mmol/L (21-32) 04/22/21 Unknown Anion Gap 12.0 (3-11) H 04/22/21 Unknown BUN 26 mg/dl (7-18) H 04/22/21 Unknown Creatinine 4.64 mg/dl (0.6-1.4) H* 04/22/21 Unknown Est Cr Clr Drug Dosing 17.0 ml/min 04/22/21 Unknown Est GFR ( Amer) 15.8 ml/min 04/22/21 Unknown Est GFR (Non-Af Amer) 13.7 ml/min 04/22/21 Unknown BUN/Creatinine Ratio 5.6 (10-20) L 04/22/21 Unknown Glucose 175 mg/dl (70-99) H 04/22/21 Unknown Calcium 9.0 mg/dl (8.5-10.1) 04/22/21 Unknown Total Bilirubin 0.4 mg/dl (0.2-1) 04/22/21 Unknown AST 27 U/L (15-37) 04/22/21 Unknown ALT 57 U/L (12-78) 04/22/21 Unknown Alkaline Phosphatase 180 U/L (45-117) H 04/22/21 Unknown Total Protein 8.2 gm/dl (6.4-8.2) 04/22/21 Unknown Albumin 3.5 gm/dl (3.4-5.0) 04/22/21 Unknown Globulin 4.7 gm/dl (2.5-4.0) H 04/22/21 Unknown Albumin/Globulin Ratio 0.7 (0.9-2) L 04/22/21 Unknown Lipase 114 U/L (73-393) 04/22/21 Unknown COVID-19 Eval Order Covid19 at [facility] 04/22/21 Unknown SARS-CoV-2 (PCR) NEGATIVE (Negative) 04/22/21 Unknown ECG Additional Comments: ordered Code Status & VTE Plan VTE Prophylaxis Plan VTE Prophylaxis will be ordered: Yes PG Care Time/CCT Total # of Minutes Spent Total Time Spent with Patient: Total time spent is greater than 50% in coordination of care (as documented) at patient's floor/unit and/or counseling patient: Coding Level of Care Code INT OBSERVATION CARE 70M LVL 3 Diagnoses Hypertension I10 Hypertension type: unspecified 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 transplanted heart: cahto heart Associated angina: without angina Nausea & vomiting R11.2 GERD (gastroesophageal reflux disease) K21.9 (1) Hypertension Hypertension type: unspecified Qualified Code(s): I10 - Essential (primary) hypertension (2) Depression Depression Type: major depressive disorder Major depression recurrence: recurrent Active/Remission status: remission status unspecified Qualified Code(s): F33.9 - Major depressive disorder, recurrent, unspecified (3) CAD (coronary artery disease) Coronary Disease-Associated Artery/Lesion type: cahto artery [place] vs. transplanted heart: cahto heart Associated angina: without angina Qualified Code(s): I25.10 - Atherosclerotic heart disease of cahto coronary artery without angina pectoris
[2021-04-23] MEDS ORDERED: ONDANSETRON INJ 2 MG/ML 2 ML VIAL IV PRN (03:55)
[2021-04-23] MEDS ORDERED: GLUCOSE 40% GEL 15 GM TUBE PO PRN (03:55)
[2021-04-23] MEDS ORDERED: GLUCOSE 10 TABS/TUBE PO PRN (03:55)
[2021-04-23] MEDS ORDERED: CARBOHYDRATES FOR HYPOGLYCEMIA PO PRN (03:55)
[2021-04-23] MEDS ORDERED: METOCLOPRAMIDE HCL 5 MG TABLET PO PRN (03:55)
[2021-04-23] MEDS ORDERED: GLUCAGON FOR INJ 1 MG VIAL SQ PRN (03:55)
[2021-04-23] MEDS ORDERED: DEXTROSE 50% 50 ML SYRINGE IV PRN (03:55)
[2021-04-23] MEDS ORDERED: LORazepam 0.5 MG TAB PO PRN (03:55)
[2021-04-23] MEDS ORDERED: ACETAMINOPHEN 325 MG TAB PO PRN (03:55)
[2021-04-23] MEDS ORDERED: LACTATED RINGER'S 1,000 ML IV SCH (03:55)
[2021-04-23] MEDS ORDERED: ONDANSETRON INJ 2 MG/ML 2 ML VIAL ONE (03:59)
[2021-04-23 04:11] LABS: Magnesium 2.5 mg/dl (1.8-2.4)
[2021-04-23] MEDS ORDERED: PROCHLORPERAZINE 5 MG in SYRINGE 4 ML IV PRN (05:22)
[2021-04-23] MEDS ORDERED: PHARMACY GLYCEMIC MGMT CONSULT PRN (08:01)
[2021-04-23] MEDS ORDERED: METOCLOPRAMIDE HCL INJ 5 MG/ML 2 ML VIAL IV PRN (08:03)
--- NOTE | 2021-04-23 08:16 | Electrocardiogram Report ---
Test Reason : Blood Pressure : / mmHG Vent. Rate : 100 BPM Atrial Rate : 100 BPM P-R Int : 210 ms QRS Dur : 096 ms QT Int : 372 ms P-R-T Axes : 069 -29 073 degrees QTc Int : 479 ms Sinus rhythm with 1st degree A-V block Left atrial enlargement Minor Nonspecific ST abnormality Anterolateral leads Borderline ECG When compared with ECG of 13-MAR-2021 21:56, CT interval has increased QT has shortened Confirmed by Len Ruvalcaba ([id number]) on 04/23/2021 8:16:30 AM Referred By: REFERRED SELF Confirmed By:Len Ruvalcaba
[2021-04-23] MEDS ORDERED: NEPHROCAPS PO SCH (09:00)
[2021-04-23] MEDS ORDERED: PANTOprazole 40 MG TAB PO SCH (09:00)
[2021-04-23] MEDS ORDERED: buPROPion SR 100 MG TABCR PO SCH (09:00)
[2021-04-23] MEDS ORDERED: amLODIPine BESYLATE 5 MG TAB PO SCH (09:00)
[2021-04-23] MEDS ORDERED: LOSARTAN POTASSIUM 50 MG TAB PO SCH (09:00)
[2021-04-23] MEDS ORDERED: ATORVASTATIN 10 MG TAB PO SCH (09:00)
[2021-04-23] MEDS ORDERED: SERTRALINE HCL 100 MG TABLET PO SCH (09:00)
[2021-04-23] MEDS ORDERED: INSULIN GLARGINE SOLOSTAR 100 UNITS/ML 3 ML PEN SC SCH (09:00)
[2021-04-23] MEDS ORDERED: MIRTAZAPINE TAB 15 MG TAB PO SCH (09:00)
[2021-04-23] MEDS: INSULIN ASPART 100 UNITS/ML 3 ML PEN SC SCH ×3 (09:10→17:50)
[2021-04-23] MEDS: carvediloL 25 MG TAB PO SCH ×2 (09:12→17:51)
--- NOTE | 2021-04-23 11:01 | Pharmacy Report ---
Pharmacy Glycemic Short Note 2 - Date of Service April 23, 2021 - Glycemic Short BSG Results (Last 24 hours): 04/22/21 04/23/21 04/23/21 Unknown 07:49 07:50 Glucose 175 H POC Glucose 328 H* 308 H* OUTPATIENT ANTIDIABETIC REGIMEN: * Basaglar 14 units Q AM * Novolog 5 units TID w/ meals * A1c = 6.9% 12/27/20 however must interpret cautiously in the setting of anemia and ESRD due to inaccuracies ASSESSMENT: * Type 1 diabetic known to the glycemic control service from past hospitalizations - admitted due to ongoing NV * Patient's BSGs due tend to be erratic, with wide fluctuations - likely related to ESRD, gastroparesis and cyclic vomiting * Initial chemistry did not show severe hyperglycemia and only mild AG without acidosis - which could be related to ESRD. Fasting BSG elevated this AM however. * Will initiate a SQ regimen similar to that used in the past. Will administer Lantus once daily in the AM initially as HS dosing has caused fasting lows in the past. Will add overnight BSG check to screen for hypo / hyperglycemia. PLAN FOR INPATIENT GLYCEMIC CONTROL: * Basal insulin * Lantus 12 units SQ Q AM * Bolus insulin * NovoLog per scale ACHS and at 0200 * Goal Range: Low 110 mg/dL - High 180 mg/dL * Correction Factor: 30 mg/dL/unit * Nutritional / Prandial insulin per carb ratio of 1 unit per 10 grams CHO consumed PLAN FOR DISCHARGE: * to be determined
[2021-04-23] MEDS ORDERED: WARFARIN SOD 5 MG TAB PO SCH (16:00)
[2021-04-23] MEDS ORDERED: MELATONIN 3 MG TAB PO SCH (21:00)
[2021-04-23] MEDS ORDERED: QUEtiapine FUMARATE 25 MG TABLET PO SCH (21:00)
[2021-04-24] MEDS ORDERED: INSULIN ASPART 100 UNITS/ML 3 ML PEN SC SCH (02:00)
--- NOTE | 2021-04-29 00:16 | Discharge Summary ---
Date of Service April 23, 2021 Admission HPI Per Admitting Provider Jorge Alberto De Los Santos is a 50yo male with history of cyclic vomiting, Type I DM, ESRD on HD q M/W/F, CAD, Gastroparesis, prior PE in November 26 presenting with 2 days of nausea. Patient reports nausea with > 10 episodes of non-bloody/non-bilious vomiting. He has been unable to keep anything down. He tried taking Compazine, Zofran and Ativan at home with little improvement. He had HD today. Has seen GI at [facility] and was recently started on Remeron which he feels is improving his appetite and sleep. PleurX catheter in place on right. He drains it q M/W/F - appx 200mL of staci colored fluid. NO purulence or blood noted. No pain at PleurX site. No additional complaints at this time. ER Course: Hydralazine 10mg IV x 2, Reglan 10mg, Zofran, NSS Principal Diagnosis nausea and vomiting Discharge Exam General: chronically ill appearing male patient resting comfortably, NAD, AA&O x 4 Skin: warm, dry, intact, no rashes or lesions HEENT: NC/AT, PERRL, EOMI, anicteric sclera, conjunctiva without injection, external ear normal to inspection and nontender, nares patent, dry lips and mucus membranes, dentition intact, no oropharyngeal lesions, neck supple, trachea midline, no LAD, no thyromegaly, no JVD Heart: +S1/S2, regular, 2/6 GOKUL at LSB Lungs: equal air entry bilaterally, no rales/rhonchi/wheezes, PleurX in place right hemithorax, dressing in place c/d/i Abd: +BS, soft, NT/ND, no masses/organomegaly/ascites Ext: warm, 2+ pulses in UE/LE bilaterally, no clubbing/cyanosis or edema, LUE AV fistula with palpable thrill Neuro: nonfocal, patient AA&O x 4, speech intact, no facial droop, moving all extremities on command with equal strength 5/5 Discharge Data Allergies Allergy/AdvReac Type Severity Reaction Status Date / Time shellfish derived Allergy Severe anaphylaxis Verified 04/25/21 16:25 codeine Allergy Intermediate Hives Verified 04/25/21 16:25 promethazine Allergy Intermediate itchy/hives Verified 04/25/21 16:25 Consultations 04/22/21 23:39 ED Decision to Admit Stat Hospital Course (1) Nausea & vomiting: Patient with history of cyclic vomiting, gastroparesis as well as anxiety that contribute to his nausea. States he has taken Compazine, Zofran and Ativan at home prior to arrival with no improvement. -Observation to medical -LR at 80mL/hr x 1 liter -Zofran PRN -Continue REglan, Ativan, Trimethobenzamide Patient improved in the afternoon. AND REQUESTED TO BE DISCHARGED. (2) Hypertension: Elevated blood pressure on arrival. Now improved -Continue Losartan -Continue Carvedilol -Continue Amlodipine (3) 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, with long-term current use of insulin: Controlled -Continue Lantus 12u qAM -ISS -Goal blood sugar 100 - 140 (4) Nonischemic cardiomyopathy: Compensated. No evidence of acute CHF -Continue Carvedilol -Continue Losartan (5) Diabetic gastroparesis: Chronic. -Continue Reglan, Zofran as above -Advance diet as tolerated (6) Pulmonary embolism: On Coumadin anticoagulation -Continue Coumadin at home dosing -Monitor INR (7) Pleural effusion: Maintain PleurX catheter - change q M/W/F, monitor output (8) ESRD (end stage renal disease): On HD q M/W/F -Renal diet -Continue renal MVI (9) Anxiety: Chronic -Continue Sertraline -Continue Remeron -Continue bUPROPION -Ativan PRN (10) Depression: Chronic -Continue Remeron -Continue Sertraline -Continue Seroquel (11) CAD (coronary artery disease): Chronic -Continue Atorvastatin -Continue Losartan, Carvedilol (12) GERD (gastroesophageal reflux disease): Chronic -Continue Protonix 40 BID F/E/N - LR at 80mL/hr x 1 liter, monitor electrolytes, Type I/ESRD diet as tolerated Ppx - SCDs, continue Protonix Code- Full per discussion with patient Dispo - Observation to medical Total Time Total Time Spent Total Time Spent (In Minutes): 32 Discharge Plan Discharge Items Patient Disposition: Home - Self-Care Reason For Visit: NAUSEA Discharge Diagnosis: nausea Activity: Resume your previous activity Non-emergency contact: Primary Care Provider Call non-emergency contact if: you have any medication questions Follow-up/Referrals: Abbi Ames MD [Primary Care Provider] - 05/07/21 10:15 am (Patient is scheduled with Elysia VALERO. You also have an appt scheduled to see [place] on 05/23/21.) Diet: Carb Consistent or DM2 Addtl Attending Provider Instructions: You have been hospitalized for an acute medical problem. During your stay at [facility], we have made an effort to correct the problem that brought you to the hospital while keeping you as comfortable as possible. Medications were used to bring your condition under control and your discharge instructions will include directions for any medications you should take after leaving the hospital. Please make sure you see your Primary Care Provider as part of your follow up plan. Pending Studies at Discharge: No Stand-Alone Forms: My [facility], Smoking Cessation Medications and DC Order Prescriptions: Continued acetaminophen 325 mg capsule 650 mg PO Q4H PRN (Reason: Pain (Scale Score 1-3)) RF: 0 pantoprazole 40 mg tablet,delayed release (DR/EC) 40 mg PO BID Qty: 60 RF: 5 lorazepam 0.5 mg tablet 0.5 mg PO Q6H PRN (Reason: Anxiety) Qty: 60 RF: 0 insulin aspart U-100 [Novolog Flexpen U-100 Insulin] 100 unit/mL (3 mL) insulin pen 5 unit SUBCUT TIDM PRN (Reason: sliding scale) Qty: 15 RF: 5 cholecalciferol (vitamin D3) [Vitamin D3] 50 mcg (2,000 unit) capsule 50 mcg PO DAILY Qty: 90 RF: 3 carvedilol 25 mg tablet 25 mg PO BIDM RF: 0 melatonin 3 mg tablet 3 mg PO HS RF: 0 sertraline 100 mg tablet 100 mg PO QAM Qty: 90 RF: 0 mirtazapine [Remeron] 15 mg tablet 7.5 mg PO DAILY RF: 0 losartan 100 mg Tablet 100 mg PO QAM RF: 0 quetiapine [Seroquel] 25 mg tablet 25 mg PO HS Qty: 30 RF: 0 amlodipine [Norvasc] 5 mg Tablet 5 mg PO BID Qty: 60 RF: 0 atorvastatin 10 mg tablet 10 mg PO QAM RF: 0 Renal Vitamin 0.8 mg Tablet 1 tab PO DAILY RF: 0 trimethobenzamide 300 mg Capsule 300 mg PO TID PRN (Reason: Nausea) RF: 0 Basaglar KwikPen U-100 Insulin 100 unit/mL (3 mL) insulin pen 14 unit SUBCUT QAM RF: 0 ondansetron HCl 4 mg tablet 8 mg PO Q4 PRN (Reason: nausea or vomiting) RF: 0 warfarin 5 mg tablet See Rx Instructions PO UD RF: 0 No Action bupropion HCl 100 mg tablet sustained-release 12 hr 100 mg PO DAILY Qty: 30 RF: 3 metoclopramide HCl 5 mg tablet 5 mg PO AC Qty: 30 RF: 0 Discharge Orders: Discharge Order (Routine); Ordered 04/23/21 Ordered By: Sami Mckeon Admission Data Admit Date/Time: 04/23/21 00:14 Attending Provider: Sami Mckeon Admit Provider: Marielos Cervantes Primary Care Provider: Abbi Ames V. Other Providers: Marielos Cervantes Other Interventions: Discharge Summary Assessment (RN) Last Done: 04/23/21 17:59 Coding Level of Care Code 30786 OBS Care - Discharge Diagnoses Nausea & vomiting R11.2 Hypertension I10 Hypertension type: unspecified 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, with long-term current use of insulin E10.29 Nonischemic cardiomyopathy I42.8 Diabetic gastroparesis E11.43; K31.84 Pulmonary embolism I26.99 Pleural effusion J90 ESRD (end stage renal disease) N18.6 Anxiety F41.9 Depression F33.9 Depression Type: major depressive disorder Major depression recurrence: recurrent Active/Remission status: remission status unspecified CAD (coronary artery disease) I25.10 Coronary Disease-Associated Artery/Lesion type: [place] artery [place] vs. transplanted heart: [place] heart Associated angina: without angina GERD (gastroesophageal reflux disease) K21.9
== END 2021-04-23 18:10 | disposition home or self-care (01) ==
LOC: ED 21:02 → EDINP 21:02 → SUATTDRO 04-23 00:14 → 3W 04-23 03:49

== ENCOUNTER 2021-04-25 15:23 | Inpatient (IN) ==
[2021-04-25] MEDS ORDERED: ONDANSETRON INJ 2 MG/ML 2 ML VIAL IV STA (15:29)
[2021-04-25] MEDS ORDERED: SODIUM CHLORIDE 0.9% 1000ML 1,000 ML IV STA (15:29)
--- NOTE | 2021-04-25 15:33 | Emergency Department Note ---
Impression & Plan Cyclic vomiting syndrome, Esophagitis, Renal failure, chronic ED Provider Note NAME: JERARDO PEREZ AGE: 50 SEX: M : 1970 ARRIVES VIA: Ambulance INFORMANT: Patient, ED PROVIDER(S): Jerardo Mae DO � CHIEF COMPLAINT: Nausea vomiting HPI: The patient is a 50-year-old male who presented to emergency department for an evaluation of nausea vomiting. The patient seen multiple times in the past for nausea vomiting. He has a history of end-stage renal disease. The patient had dialysis yesterday. He states he had a full run of dialysis. He denies having any hematemesis. He called 911 to come to the emergency department. The patient also complains of chest pain. He denies having any recent trauma or fever. ROS: See above HPI for pertinent positives & negatives. A total of 10 systems reviewed and were otherwise negative. PAST MEDICAL HISTORY: See Below PAST SURGICAL HISTORY: See Below FAMILY HISTORY: See Below SOCIAL HISTORY: See Below HOME MEDICATIONS: See Below ALLERGIES: See Below VITALS: See Below PHYSICAL EXAMINATION: GENERAL: The patient is awake and alert. He is somewhat anxious appearing. EYES: The conjunctivae are clear. The pupils are round and reactive. EARS, NOSE, MOUTH AND THROAT: The nose is without any evidence of any deformity. Mucous membranes are moist. Tongue is midline. NECK: The neck is nontender and supple. RESPIRATORY: Normal respiratory effort is noted there is no evidence of wheezing rhonchi or rales CARDIOVASCULAR: Regular rate and rhythm noted there no murmurs rubs or gallops normal S1 normal S2. GASTROINTESTINAL: The abdomen is soft. Abdomen is nontender. MUSCULOSKELETAL/EXTREMITIES: There is no evidence of gross deformity full range of motion is noted in the hips and shoulders. SKIN: There is no obvious evidence of any rash. There are no petechiae, pallor or cyanosis noted. NEUROLOGIC: Patient is awake alert and oriented x3 strength is symmetric patellar reflexes are 2+ bilaterally MEDICAL DECISION MAKING: The patient is a 50-year-old male who presents emergency department from home for intractable vomiting and chest discomfort. The patient has a history of renal failure receiving dialysis. His last dialysis treatment was yesterday. The patient states he has been compliant with his usual medications for reflux as well as vomiting. His vomiting was out of control today so his family called 911 and the patient arrived via ambulance. The patient is well-known to our facility. He was treated in usual fashion. His symptoms were not significantly improved and his family asked if he could be evaluated by the admission team for inpatient management. The case was discussed with the [facility]. They will evaluate the patient in the emergency department. He is due for dialysis tomorrow. Triage Nursing notes reviewed. Prior medical records reviewed Vital Signs: reviewed and remarkable for elevated blood pressure. Differential diagnosis: Gastroenteritis, food borne illness, infections, appendicitis, diverticulitis, inflammatory bowel disease, obstruction, GI bleed, biliary pathology, volvulus, as well as other pathologies. ER treatment provided: See below Diagnostics interpreted by me: ECG: EKG was obtained in the emergency department. My interpretation is normal sinus rhythm at 84 bpm. First-degree AV block was noted. There was no ectopy. There is no significant ST segment abnormalities noted. This was compared to a tracing from April 232020. No changes were noted. Cardiac Monitoring: An order was placed for continuous cardiac monitoring. The monitor shows a rate of 84 bpm with sinus rhythm. Laboratory studies: As stated above and show below. Imaging studies: See below Consultation(s): I discussed this case with Mehdi who is on-call for the [facility] hospitalist group. They have agreed to evaluate the patient in the emergency department for further management and disposition. Past Med/Surg History Medical History Anemia of chronic disease Anxiety AV fistula left upper arm CAD (coronary artery disease) mild, non-obstructive CAD per 10/2018 cardiac cath> [facility] Cardiac murmur follows with Dr. Powell Chronic pleural effusion PleurX catheter placed 01/24/21; pt reports emptying q2d Depression Diabetes Diabetic retinopathy Dialysis patient Encounter for pre-operative examination ESRD (end stage renal disease) M,W,F (Follows with Dr. Lor Guadalupe; [facility]) Gastroparesis GERD (gastroesophageal reflux disease) History of pulmonary embolism 11/2020; unk etiology; started on warfarin Hypertension Kidney stones Lumbar radiculopathy Peripheral neuropathy Retinopathy due to secondary diabetes Severe protein-calorie malnutrition Surgical History H/O shoulder surgery RIGHT History of appendectomy History of cardiac cath 10/2018= no stents, no obstructive disease (at [facility]) History of cataract surgery History of esophagogastroduodenoscopy (EGD) (~03/08/20) History of hip surgery left HIP ARTHROSCOPY History of lithotripsy History of open reduction and internal fixation (ORIF) procedure right hip Nausea and vomiting after administration of anesthetic agent Permanent central venous catheter in place Permacath has been removed S/P arteriovenous (AV) fistula creation Family History Grandfather Myocardial infarction Grandfather (Maternal) Family history of diabetes mellitus Uncle Myocardial infarction Father Hypertension Mother Kidney stone Other No family history of adverse response to anesthesia Denies family history of Colon cancer Ovarian cancer Prostate cancer Breast cancer Social History Smoking Status: Never smoker Second Hand Exposure: No; Hx Alcohol Use: No Hx Substance Use: No Preferred Language: Spanish Communication Ability: Effective Visual Impairment: No Limitations Hearing Ability: Normal Physicians And Surgeons Required: No Beliefs That Will Affect Care: None marital status: Single Current Living Situation: Parent Current Living Situation Comment: lives with parents. current occupational status: disabled How many Children do You have: 2 Feels Safe at Home: Yes Childhood Exposure to Second-Hand Smoke: Yes Dental Care, Regularly: No Physical Activity Frequency: 1-2 Times per Week Seatbelt Use: always Sunscreen Use: No Assistive Devices: None Allergies Allergies Allergy/AdvReac Type Severity Reaction Status Date / Time shellfish derived Allergy Severe anaphylaxis Verified 04/25/21 16:25 codeine Allergy Intermediate Hives Verified 04/25/21 16:25 promethazine Allergy Intermediate itchy/hives Verified 04/25/21 16:25 Home Meds Home Medications Medication Instructions Recorded Confirmed melatonin 3 mg tablet 3 mg PO HS tab 09/05/20 04/25/21 acetaminophen 325 mg capsule 650 mg PO Q4H PRN cap 09/28/20 04/25/21 carvedilol 25 mg tablet 25 mg PO BIDM tab 10/01/20 04/25/21 losartan 100 mg tablet 100 mg PO QAM 11/29/20 04/25/21 atorvastatin 10 mg tablet 10 mg PO QAM 03/11/21 04/25/21 trimethobenzamide 300 mg capsule 300 mg PO TID PRN 03/13/21 04/25/21 vitamin B complex-vitamin C-folic 1 tab PO DAILY 03/13/21 04/25/21 acid 0.8 mg tablet (Renal Vitamin) insulin glargine 100 unit/mL (3 14 unit SUBCUT QAM ml 03/19/21 04/25/21 mL) subcutaneous pen (Basaglar KwikPen U-100 Insulin) mirtazapine 15 mg tablet (Remeron) 7.5 mg PO DAILY tab 03/19/21 04/25/21 ondansetron HCl 4 mg tablet 8 mg PO Q4 PRN tab 03/19/21 04/25/21 warfarin 5 mg tablet See Rx Instructions PO UD 04/10/21 04/25/21 Previous Rx's Medication Instructions Recorded sertraline 100 mg tablet 100 mg PO QAM #90 tab 12/11/20 metoclopramide HCl 5 mg tablet 5 mg PO AC PRN #30 tab 01/07/21 quetiapine 25 mg tablet (Seroquel) 25 mg PO HS #30 tab 01/07/21 pantoprazole 40 mg tablet,delayed 40 mg PO BID #60 tab 02/12/21 release amlodipine 5 mg tablet (Norvasc) 5 mg PO BID #60 tab 02/17/21 lorazepam 0.5 mg tablet 0.5 mg PO Q6H PRN #60 tab 03/27/21 insulin aspart U-100 100 unit/mL 5 unit SUBCUT TIDM PRN #15 ml 04/02/21 (3 mL) subcutaneous pen (Novolog Flexpen U-100 Insulin aspart) cholecalciferol (vitamin D3) 50 50 mcg PO DAILY #90 cap 04/12/21 mcg (2,000 unit) capsule (Vitamin D3) bupropion HCl 100 mg tablet,12 hr 100 mg PO DAILY #30 ea 04/24/21 sustained-release Results & Data (ED) Vital Signs Vital Signs - 24 hr 04/25/21 15:26 04/25/21 15:32 04/25/21 17:56 Pulse Rate 84 85 Pulse Rate [Right Radial] 84 Respiratory Rate 18 18 20 Respiratory Effort / Characteristics Non-Labored Non-Labored Respiratory Depth Deep Normal Respiratory Pattern Regular Blood Pressure 201/92 H Blood Pressure [Right Arm] 170/76 H Blood Pressure Mean 128 Blood Pressure Mean [Right Arm] 107 Pulse Oximetry 99 100 98 Oxygen Delivery Method Room Air Room Air Room Air Sepsis Recent Fever Within 48 Hours No Sepsis New/Unexplained Change in Mental Status No Sepsis Action Taken by Nursing No Action Required Home Medications Current Medication List: was personally reviewed by me Laboratory Data Attestation: I reviewed the patient's lab results. Result diagrams: 04/25/21 16:00 04/25/21 16:00 Lab Results 04/25/21 04/25/21 04/25/21 Range/Units 16:00 16:00 16:00 WBC 11.90 H (4.8-10.8) K/uL RBC 4.00 L (4.7-6.1) M/uL Hgb 13.2 L (14.0-18.0) g/dL Hct 39.8 L (42-52) % MCV 99.5 (80-100) fL MCH 33.0 (25-34) pg MCHC 33.2 (32-36) g/dL RDW Std Deviation 46.1 (36.4-46.3) fL RDW Coeff of Kami 12.6 (11.5-14.5) % Plt Count 484 H (130-400) K/uL MPV 8.7 (7.4-10.4) fL Immature Gran % (Auto) 0.8 % Neut % (Auto) 75.2 % Lymph % (Auto) 11.3 % Todd % (Auto) 10.7 % Eos % (Auto) 1.8 % Baso % (Auto) 0.2 % Neut # (Auto) 8.95 H (1.4-6.5) K/uL Lymph # (Auto) 1.34 (1.2-3.4) K/uL Todd # (Auto) 1.27 H (0.11-0.59) K/uL Eos # (Auto) 0.22 (0-0.5) K/uL Baso # (Auto) 0.02 (0-0.2) K/uL Immature Gran # (Auto) 0.10 H (0.00-0.02) K/uL PT 14.8 H (9.0-12.0) Seconds INR 1.5 H (0.9-1.1) APTT 23.5 (21.0-31.0) Seconds PTT Ratio 0.9 Sodium 134 L (136-145) mmol/L Potassium 4.6 (3.5-5.1) mmol/L Chloride 97 L (98-107) mmol/L Carbon Dioxide 21 (21-32) mmol/L Anion Gap 16.0 H (3-11) BUN 51 H (7-18) mg/dl Creatinine 6.52 H* (0.6-1.4) mg/dl Est Cr Clr Drug Dosing 12.7 ml/min Est GFR ( Amer) 10.5 ml/min Est GFR (Non-Af Amer) 9.1 ml/min BUN/Creatinine Ratio 7.8 L (10-20) Glucose 98 (70-99) mg/dl Calcium 8.7 (8.5-10.1) mg/dl Magnesium 2.4 (1.8-2.4) mg/dl Total Bilirubin 0.4 (0.2-1) mg/dl AST 24 (15-37) U/L ALT 51 (12-78) U/L Alkaline Phosphatase 191 H (45-117) U/L Troponin I < 0.015 (0-0.045) ng/ml Total Protein 7.8 (6.4-8.2) gm/dl Albumin 3.5 (3.4-5.0) gm/dl Globulin 4.3 H (2.5-4.0) gm/dl Albumin/Globulin Ratio 0.8 L (0.9-2) Lipase 164 (73-393) U/L Specimen Hemolysis Administered Medications Discontinued Medications Sodium Chloride (Nss 1000ml) 1,000 mls @ 999 mls/hr IV .Q1H1M STA Stop: 04/25/21 16:29 Last Infusion: 04/25/21 17:54 Dose: 0 mls/hr Documented by: [id number] Admin: 04/25/21 16:28 Dose: 999 mls/hr Documented by: [id number] Prochlorperazine (Compazine) 2 mls @ 1 mls/min IV ONE ONE Stop: 04/25/21 17:02 Last Admin: 04/25/21 17:26 Dose: 1 mls/min Documented by: [id number] Ondansetron HCl (Ondansetron Inj 2 Mg/Ml 2 Ml Vial) 4 mg IV NOW STA Stop: 04/25/21 15:30 Last Admin: 11/18/21 16:28 Dose: 4 mg Documented by: [id number] Imaging Data Radiologist's Impression: Chest X-Ray 04/25/21 15:29 XR chest 1V portable CLINICAL HISTORY: Atypical chest pain TECHNIQUE: Single frontal radiograph of the chest was obtained. Comparison: Comparison is made to chest one view 03/14/2021 FINDINGS: No lines and tubes are seen. Cardiomegaly is noted. The lungs are clear. No evidence of pleural effusion or pneumothorax. IMPRESSION: No acute chest disease. ACT 112: Negative or not required by law. Electronically signed by: Maninder Cohen M.D. 04/25/2021 4:23 PM Discharge Plan Visit Data Chief Complaint: Vomiting Stated Complaint: AMS ED Provider: Jerardo Mae Discharge Problem: Cyclic vomiting syndrome, Esophagitis, Renal failure, chronic Patient Disposition: Being Evaluated by Hospitalist Forms Stand Alone Forms: [facility] Prescriptions Prescriptions: No Action acetaminophen 325 mg capsule 650 mg PO Q4H PRN (Reason: Pain (Scale Score 1-3)) RF: 0 pantoprazole 40 mg tablet,delayed release (DR/EC) 40 mg PO BID Qty: 60 RF: 5 lorazepam 0.5 mg tablet 0.5 mg PO Q6H PRN (Reason: Anxiety) Qty: 60 RF: 0 insulin aspart U-100 [Novolog Flexpen U-100 Insulin] 100 unit/mL (3 mL) insulin pen 5 unit SUBCUT TIDM PRN (Reason: sliding scale) Qty: 15 RF: 5 cholecalciferol (vitamin D3) [Vitamin D3] 50 mcg (2,000 unit) capsule 50 mcg PO DAILY Qty: 90 RF: 3 bupropion HCl 100 mg tablet sustained-release 12 hr 100 mg PO DAILY Qty: 30 RF: 3 carvedilol 25 mg tablet 25 mg PO BIDM RF: 0 melatonin 3 mg tablet 3 mg PO HS RF: 0 sertraline 100 mg tablet 100 mg PO QAM Qty: 90 RF: 0 mirtazapine [Remeron] 15 mg tablet 7.5 mg PO DAILY RF: 0 losartan 100 mg Tablet 100 mg PO QAM RF: 0 quetiapine [Seroquel] 25 mg tablet 25 mg PO HS Qty: 30 RF: 0 metoclopramide HCl 5 mg tablet 5 mg PO AC PRN (Reason: nausea and vomiting) Qty: 30 RF: 0 amlodipine [Norvasc] 5 mg Tablet 5 mg PO BID Qty: 60 RF: 0 atorvastatin 10 mg tablet 10 mg PO QAM RF: 0 Renal Vitamin 0.8 mg Tablet 1 tab PO DAILY RF: 0 trimethobenzamide 300 mg Capsule 300 mg PO TID PRN (Reason: Nausea) RF: 0 Basaglar KwikPen U-100 Insulin 100 unit/mL (3 mL) insulin pen 14 unit SUBCUT QAM RF: 0 ondansetron HCl 4 mg tablet 8 mg PO Q4 PRN (Reason: nausea or vomiting) RF: 0 warfarin 5 mg tablet See Rx Instructions PO UD RF: 0 Referrals Referrals: Abbi Ames MD [Primary Care Provider] -
[2021-04-25 16:09] LABS: Basophils # (auto) 0.02 K/uL (0-0.2); Basophils % (auto) 0.2 %; Eosinophils # (auto) 0.22 K/uL (0-0.5); Eosinophils % (auto) 1.8 %; Hematocrit (blood only) 39.8 % (42-52); Hemoglobin 13.2 g/dL (14.0-18.0); Immature Granulocytes % (auto) 0.8 %; Lymphocytes # (auto) 1.34 K/uL (1.2-3.4); Lymphocytes % (auto) 11.3 %; Mean Corpuscular Hgb Conc 33.2 g/dL (32-36); Mean Corpuscular Volume 99.5 fL (80-100); Mean Platelet Volume 8.7 fL (7.4-10.4); Monocytes # (auto) 1.27 K/uL (0.11-0.59); Monocytes % (auto) 10.7 %; Neutrophils # (auto) 8.95 K/uL (1.4-6.5); Neutrophils % (auto) 75.2 %; Platelet Count 484 K/uL (130-400); RDW Coefficient of Variation 12.6 % (11.5-14.5); RDW Standard Deviation 46.1 fL (36.4-46.3)
[2021-04-25 16:19] LABS: INR 1.5 (0.9-1.1); Partial Thromboplastin Ratio 0.9; Partial Thromboplastin Time 23.5 Seconds (21.0-31.0); Prothrombin Time 14.8 Seconds (9.0-12.0)
--- NOTE | 2021-04-25 16:25 | XRay Report ---
XR chest 1V portable CLINICAL HISTORY: Atypical chest pain TECHNIQUE: Single frontal radiograph of the chest was obtained. Comparison: Comparison is made to chest one view 03/14/2021 FINDINGS: No lines and tubes are seen. Cardiomegaly is noted. The lungs are clear. No evidence of pleural effus ion or pneumothorax. IMPRESSION: No acute chest disease. ACT 112: Negative or not required by law. Electronically signed by: Maninder Cohen M.D. 04/25/2021 4:23 PM
[2021-04-25] MEDS ORDERED: PROCHLORPERAZINE 2 ML IV ONE (17:01)
[2021-04-25 17:16] LABS: Alanine Aminotransferase 51 U/L (12-78); Albumin Globulin Ratio 0.8 (0.9-2); Albumin Level 3.5 gm/dl (3.4-5.0); Alkaline Phosphatase 191 U/L (45-117); Aspartate Aminotransferase 24 U/L (15-37); BUN Creatinine Ratio 7.8 (10-20); Bilirubin,Total 0.4 mg/dl (0.2-1); Blood Urea Nitrogen 51 mg/dl (7-18); Calcium 8.7 mg/dl (8.5-10.1); Carbon Dioxide 21 mmol/L (21-32); Chloride 97 mmol/L (98-107); Creatinine Clr Calc Pharmacy 12.7 ml/min; Est GFR (African American) 10.5 ml/min; Est GFR (Non-African American) 9.1 ml/min; Globulin 4.3 gm/dl (2.5-4.0); Glucose 98 mg/dl (70-99); Lipase 164 U/L (73-393); Magnesium 2.4 mg/dl (1.8-2.4); Potassium 4.6 mmol/L (3.5-5.1); Sodium 134 mmol/L (136-145); Total Protein 7.8 gm/dl (6.4-8.2); Troponin I < 0.015 ng/ml (0-0.045)
--- NOTE | 2021-04-25 20:30 | History & Physical Report ---
Date of Service April 25, 2021 Assessment & Plan (1) Nausea: Plan: Nausea with dry heaves - KUB pending - May be secondary to increase in BUN - No abdominal pain - Normal LFTs and bilirubin - Hx of nephrolithiasis- KUB as above - liquid bland diet - Lipase normal - Clinically dry on exam with cracked lips and dry tongue- Chloride low, hemoconcentrated appearing on CBC, - LR@75 ml/hour following 1L bolus (2) GERD (gastroesophageal reflux disease): Plan: Change Protonix to BID IV (3) Hypertension: Plan: Continue home medications - Notify if >180 (4) Anticoagulated on warfarin: Plan: subtherapeutic at 1.5 Coumadin was held on his most recent admission- has had his dose increased to 5mg yesterday and today - INR in morning- if remains subtherapeutic may need bridged - PE in November 26 (5) Pleural effusion: Plan: Chronically managed with PluerX catheter which he drains MWF- no acute process on CXR (6) ESRD (end stage renal disease): Plan: Dialysis dependant- MWF (7) 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 Patient comes to the emergency department for nausea, with dry heaves and no vomiting. This started this morning following lunch. The patient states he ate cereal and vegetable soup today. Following lunch he started to get nauseated, he reports just dry heaves and retching, he denies any vomiting. He is accompanied by his dad. Patient is due for his dialysis tomorrow at 0500 am and he does not feel that he can't go home because of his nausea. In the EMD the patient received 1liter of saline, Zofran 4mg IV x1 and Compazine x 1 IV. With minimal relief. He was seen at Coumadin clinic yesterday with INR of 1.9 and was started on Coumadin 5mg daily. For his gastroparesis and appetite, he was recently started on Erin tabatha which he feels has helped. Patient will be observed overnight for symptom control and monitoring, nephrology will be consulted for dialysis tomorrow. His BUN is 51 and his [employer] is 6.52, both of which are elevated from his baseline following dialysis, his electrolytes are stable. His mucous membranes are dry, will provider maintenance LR at 80ml for one liter. Allergies Allergy/AdvReac Type Severity Reaction Status Date / Time shellfish derived Allergy Severe anaphylaxis Verified 04/25/21 16:25 codeine Allergy Intermediate Hives Verified 04/25/21 16:25 promethazine Allergy Intermediate itchy/hives Verified 04/25/21 16:25 Home Medications Medication Instructions Recorded Confirmed Type melatonin 3 mg tablet 3 mg PO HS tab 09/05/20 04/25/21 History acetaminophen 325 mg capsule 650 mg PO Q4H PRN cap 09/28/20 04/25/21 History carvedilol 25 mg tablet 25 mg PO BIDM tab 10/01/20 04/25/21 History losartan 100 mg tablet 100 mg PO QAM 11/29/20 04/25/21 History sertraline 100 mg tablet 100 mg PO QAM #90 tab 12/11/20 04/25/21 Rx metoclopramide HCl 5 mg tablet 5 mg PO AC PRN #30 tab 01/07/21 04/25/21 Rx quetiapine 25 mg tablet (Seroquel) 25 mg PO HS #30 tab 01/07/21 04/25/21 Rx pantoprazole 40 mg tablet,delayed 40 mg PO BID #60 tab 02/12/21 04/25/21 Rx release amlodipine 5 mg tablet (Norvasc) 5 mg PO BID #60 tab 02/17/21 04/25/21 Rx atorvastatin 10 mg tablet 10 mg PO QAM 03/11/21 04/25/21 History trimethobenzamide 300 mg capsule 300 mg PO TID PRN 03/13/21 04/25/21 History vitamin B complex-vitamin C-folic 1 tab PO DAILY 03/13/21 04/25/21 History acid 0.8 mg tablet (Renal Vitamin) insulin glargine 100 unit/mL (3 14 unit SUBCUT QAM ml 03/19/21 04/25/21 History mL) subcutaneous pen (Basaglar KwikPen U-100 Insulin) mirtazapine 15 mg tablet (Remeron) 7.5 mg PO DAILY tab 03/19/21 04/25/21 H istory ondansetron HCl 4 mg tablet 8 mg PO Q4 PRN tab 03/19/21 04/25/21 History lorazepam 0.5 mg tablet 0.5 mg PO Q6H PRN #60 tab 03/27/21 04/25/21 Rx insulin aspart U-100 100 unit/mL 5 unit SUBCUT TIDM PRN #15 ml 04/02/21 04/25/21 Rx (3 mL) subcutaneous pen (Novolog Flexpen U-100 Insulin aspart) warfarin 5 mg tablet See Rx Instructions PO UD 04/10/21 04/25/21 History cholecalciferol (vitamin D3) 50 50 mcg PO DAILY #90 cap 04/12/21 04/25/21 Rx mcg (2,000 unit) capsule (Vitamin D3) bupropion HCl 100 mg tablet,12 hr 100 mg PO DAILY #30 ea 04/24/21 04/25/21 Rx sustained-release Past Med/Surg History Medical History Anemia of chronic disease Anxiety AV fistula left upper arm CAD (coronary artery disease) mild, non-obstructive CAD per 10/2018 cardiac cath> [facility] Cardiac murmur follows with Dr. Powell Chronic pleural effusion PleurX catheter placed 01/24/21; pt reports emptying q2d Depression Diabetes Diabetic retinopathy Dialysis patient Encounter for pre-operative examination ESRD (end stage renal disease) M,W,F (Follows with Dr. Lor Guadalupe; [facility]) Gastroparesis GERD (gastroesophageal reflux disease) History of pulmonary embolism 11/2020; unk etiology; started on warfarin Hypertension Kidney stones Lumbar radiculopathy Peripheral neuropathy Retinopathy due to secondary diabetes Severe protein-calorie malnutrition Surgical History H/O shoulder surgery RIGHT History of appendectomy History of cardiac cath 10/2018= no stents, no obstructive disease (at [facility]) History of cataract surgery History of esophagogastroduodenoscopy (EGD) (~03/08/20) History of hip surgery left HIP ARTHROSCOPY History of lithotripsy History of open reduction and internal fixation (ORIF) procedure right hip Nausea and vomiting after administration of anesthetic agent Permanent central venous catheter in place Permacath has been removed S/P arteriovenous (AV) fistula creation Family History Grandfather Myocardial infarction Grandfather (Maternal) Family history of diabetes mellitus Uncle Myocardial infarction Father Hypertension Mother Kidney stone Other No family history of adverse response to anesthesia Denies family history of Colon cancer Ovarian cancer Prostate cancer Breast cancer Social History Smoking Status: Never smoker Second Hand Exposure: No; Hx Alcohol Use: No Hx Substance Use: No Preferred Language: Croatian Communication Ability: Effective Visual Impairment: No Limitations Hearing Ability: Normal Hotel Breakfast Attendant Required: No Beliefs That Will Affect Care: None marital status: Current Living Situation: Parent Current Living Situation Comment: lives with parents. current occupational status: disabled How many Children do You have: 2 Other Information That Helps Us Care for You: No Feels Safe at Home: Yes Safety Concerns: Feels Safe At This Time Childhood Exposure to Second-Hand Smoke: Yes Dental Care, Regularly: No Physical Activity Frequency: 1-2 Times per Week Seatbelt Use: always Sunscreen Use: No Assistive Devices: Cane Review of Systems Review of Systems: REVIEW OF SYSTEMS: Constitutional: No fever, sweats or chills Eyes: No diplopia, no worsening or blurred vision ENT: normal hearing, no trouble swallowing Respiratory: No cough, sputum, dyspnea at rest or on exertion Cardiovascular: No chest pain, tightness or palpitations Abdomen: (+) nausea, retching, No pain, vomiting, diarrhea or constipation Musculoskeletal: No joint pain, calf pain, swelling Neurologic: No weakness, numbness/tingling, or balance problems Psychiatric: No anxiety or depression Skin: No rash or itch Physical Exam Physical Exam: PHYSICAL EXAM: General: fatigued appearing Head: Normocephalic, atraumatic ENT: PERRL, EOMI, no pharyngeal exudate, mucous membranes moist Neuro: AAO x 3, speech clear and appropriate, strength intact bilaterally 5/5, sensation intact and equal all extremities and dermatomes, no pronator drift Chest: equal rise and fall of the chest, no accessory muscle use, no heaves or thrills, Clear to auscultation, on room air, Cardiac: Regular rate and rhythm, telemetry reviewed, skin warm dry, cap refill <3 seconds, peripheral pulses +2 no JVD, no murmur, no edema GI: NABS x 4 quadrants, soft, nontender to palpation, no rebound, guarding or tenderness, : dialysis Extremities: Normal inspection, no peripheral edema or erythema, calfs nontender to palpation Psych: Normal mood and affect cits Skin: no rash or erythema Results & Data Results & Data ([facility]) Vital Signs (Past 12 Hours) Vital Signs Pulse Pulse Resp BP BP Pulse Ox 04/25/21 17:56 84 20 170/76 H 98 04/25/21 15:32 85 18 100 04/25/21 15:26 84 18 201/92 H 99 Laboratory Results Abnormal lab results 04/25/21 04/25/21 04/25/21 Range/Units 16:00 16:00 16:00 WBC 11.90 H (4.8-10.8) K/uL RBC 4.00 L (4.7-6.1) M/uL Hgb 13.2 L (14.0-18.0) g/dL Hct 39.8 L (42-52) % Plt Count 484 H (130-400) K/uL Neut # (Auto) 8.95 H (1.4-6.5) K/uL [place] # (Auto) 1.27 H (0.11-0.59) K/uL Immature Gran # (Auto) 0.10 H (0.00-0.02) K/uL PT 14.8 H (9.0-12.0) Seconds INR 1.5 H (0.9-1.1) Sodium 134 L (136-145) mmol/L Chloride 97 L (98-107) mmol/L Anion Gap 16.0 H (3-11) BUN 51 H (7-18) mg/dl Creatinine 6.52 H* (0.6-1.4) mg/dl BUN/Creatinine Ratio 7.8 L (10-20) Alkaline Phosphatase 191 H (45-117) U/L Globulin 4.3 H (2.5-4.0) gm/dl Albumin/Globulin Ratio 0.8 L (0.9-2) Diagnostic Findings Chest X-Ray 04/25/21 15:29 XR chest 1V portable CLINICAL HISTORY: Atypical chest pain TECHNIQUE: Single frontal radiograph of the chest was obtained. Comparison: Comparison is made to chest one view 03/14/2021 FINDINGS: No lines and tubes are seen. Cardiomegaly is noted. The lungs are clear. No evidence of pleural effusion or pneumothorax. IMPRESSION: No acute chest disease. ACT 112: Negative or not required by law. Electronically signed by: Maninder Cohen M.D. 04/25/2021 4:23 PM Medications Administered Discontinued Medications Sodium Chloride (Nss 1000ml) 1,000 mls @ 999 mls/hr IV .Q1H1M STA Stop: 04/25/21 16:29 Last Infusion: 04/25/21 17:54 Dose: 0 mls/hr Documented by: [id number] Admin: 04/25/21 16:28 Dose: 999 mls/hr Documented by: [id number] Prochlorperazine (Compazine) 2 mls @ 1 mls/min IV ONE ONE Stop: 04/25/21 17:02 Last Admin: 04/25/21 17:26 Dose: 1 mls/min Documented by: [id number] Ondansetron HCl (Ondansetron Inj 2 Mg/Ml 2 Ml Vial) 4 mg IV NOW STA Stop: 04/25/21 15:30 Last Admin: 04/25/21 16:28 Dose: 4 mg Documented by: [id number] ECG Additional Comments: Sinus rhythm with 1st degree A-V block Possible Left atrial enlargement Cannot rule out Inferior infarct , age undetermined Abnormal ECG When compared with ECG of 23-APR-2021 06:14, Nonspecific T wave abnormality now evident in Inferior leads Code Status & VTE Plan Code Status CODE: FULL VTE: SCDs, Coumadin VTE Prophylaxis Plan VTE Prophylaxis will be ordered: Yes Supervising Physician Co-Signing Physician Notes Attending addendum: I have physically seen this patient, have supervised the NOEL's activities, and agree with the H&P unless as otherwise noted. Assessment and Plan: Intractable nausea/vomiting- Patient presents with his usual symptoms postdialysis Plan liquid diet Serial CBC with differential, chemistry profile and magnesium levels Zofran 4 mg IV every 6 hours as needed LR at 75 mils per hour x1 L ESRD on HD- Consult nephrology GERD- Change Protonix from oral to 40 mg IV twice daily Remaining orders and notations as noted PG Care Time/CCT Total # of Minutes Spent Total Time Spent with Patient: Total time spent is greater than 50% in coordination of care (as documented) at patient's floor/unit and/or counseling patient: Coding Level of Care Code 72931 Initial Inpt Care Lvl 3 Diagnoses GERD (gastroesophageal reflux disease) K21.9 Hypertension I10 Hypertension type: unspecified Anticoagulated on warfarin Z79.01 Pleural effusion J90 ESRD (end stage renal disease) N18.6 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
--- NOTE | 2021-04-25 21:17 | XRay Report ---
KUB CLINICAL HISTORY: Nausea. FINDINGS: 2 AP supine abdominal radiographs are compared to study dated 04/05/2021 and correlated wit h abdominal CT dated 03/04/2021. There is a nonobstructed abdominal bowel gas pattern. A pleural drain projects over the left lung base. No evidence of intraperitoneal free air is seen on these supine vi ews. A 7 mm right renal calculus is unchanged. Phleboliths are noted in the pelvis. Postoperative clair nge is partially visualized in the right proximal femur. IMPRESSION: Nonobstructed bowel gas pattern. Electronically signed by: Dev Burden M.D. 04/25/2021 9:16 PM
[2021-04-25] MEDS ORDERED: GLUCOSE 40% GEL 15 GM TUBE PO PRN (23:21)
[2021-04-25] MEDS ORDERED: DEXTROSE 50% 50 ML SYRINGE IV PRN (23:21)
[2021-04-25] MEDS ORDERED: ACETAMINOPHEN 325 MG TAB PO PRN (23:21)
[2021-04-25] MEDS ORDERED: GLUCAGON FOR INJ 1 MG VIAL SQ PRN (23:21)
[2021-04-25] MEDS ORDERED: NON-FORMULARY MEDICATION (Acetaminophen 325 mg capsule) PO PRN (23:21)
[2021-04-25] MEDS ORDERED: LORazepam 0.5 MG TAB PO PRN (23:21)
[2021-04-25] MEDS ORDERED: PROCHLORPERAZINE 5 MG in SYRINGE 4 ML IV PRN (23:21)
[2021-04-25] MEDS ORDERED: CARBOHYDRATES FOR HYPOGLYCEMIA PO PRN (23:21)
[2021-04-25] MEDS ORDERED: ONDANSETRON INJ 2 MG/ML 2 ML VIAL IV PRN (23:21)
[2021-04-25] MEDS ORDERED: GLUCOSE 10 TABS/TUBE PO PRN (23:21)
[2021-04-25] MEDS ORDERED: LACTATED RINGER'S 1,000 ML IV ONE (23:45)
[2021-04-26] MEDS: PANTOprazole 40 MG in SYRINGE 0 ML IV SCH ×2 (00:41→08:56)
[2021-04-26] MEDS: QUEtiapine FUMARATE 25 MG TABLET PO SCH ×2 (00:42→21:41)
[2021-04-26] MEDS: amLODIPine BESYLATE 5 MG TAB PO SCH ×3 (00:42→21:41)
[2021-04-26] MEDS: INSULIN ASPART 100 UNITS/ML 3 ML PEN SC SCH ×5 (00:47→22:00)
[2021-04-26] MEDS: MELATONIN 3 MG TAB PO SCH ×2 (00:49→21:40)
[2021-04-26] MEDS: CHOLECALCIFEROL 1,000 UNITS 25 MCG TAB PO SCH (08:56)
[2021-04-26] MEDS: ATORVASTATIN 10 MG TAB PO SCH (08:56)
[2021-04-26] MEDS: buPROPion SR 100 MG TABCR PO SCH (08:56)
[2021-04-26] MEDS: SERTRALINE HCL 100 MG TABLET PO SCH (08:56)
[2021-04-26] MEDS: LOSARTAN POTASSIUM 50 MG TAB PO SCH (08:57)
[2021-04-26] MEDS: carvediloL 25 MG TAB PO SCH ×2 (08:57→17:32)
[2021-04-26] MEDS: INSULIN GLARGINE SOLOSTAR 100 UNITS/ML 3 ML PEN SQ SCH (08:57)
[2021-04-26] MEDS ORDERED: MIRTAZAPINE TAB 15 MG TAB PO SCH ×2 (09:00→21:00)
[2021-04-26 09:27] LABS: Basophils # (auto) 0.03 K/uL (0-0.2); Basophils % (auto) 0.3 %; Eosinophils # (auto) 0.13 K/uL (0-0.5); Eosinophils % (auto) 1.2 %; Hematocrit (blood only) 32.8 % (42-52); Hemoglobin 10.5 g/dL (14.0-18.0); Immature Granulocytes # (auto) 0.09 K/uL (0.00-0.02); Immature Granulocytes % (auto) 0.8 %; Lymphocytes # (auto) 1.73 K/uL (1.2-3.4); Lymphocytes % (auto) 15.9 %; Mean Corpuscular Hemoglobin 32.1 pg (25-34); Mean Corpuscular Volume 100.3 fL (80-100); Monocytes # (auto) 0.85 K/uL (0.11-0.59); Monocytes % (auto) 7.8 %; Neutrophils # (auto) 8.05 K/uL (1.4-6.5); Platelet Count 434 K/uL (130-400); RDW Coefficient of Variation 12.6 % (11.5-14.5); RDW Standard Deviation 45.9 fL (36.4-46.3); Red Blood Count 3.27 M/uL (4.7-6.1); White Blood Count 10.88 K/uL (4.8-10.8)
[2021-04-26 09:36] LABS: INR 1.8 (0.9-1.1); Prothrombin Time 17.8 Seconds (9.0-12.0)
[2021-04-26 10:18] LABS: BUN Creatinine Ratio 7.7 (10-20); Calcium 7.6 mg/dl (8.5-10.1); Creatinine Clr Calc Pharmacy 10.6 ml/min; Est GFR (African American) 8.7 ml/min; Est GFR (Non-African American) 7.5 ml/min; Magnesium 2.2 mg/dl (1.8-2.4); Potassium 4.4 mmol/L (3.5-5.1)
--- NOTE | 2021-04-26 11:49 | Consultation Report ---
NEPHROLOGY CONSULTATION NOTE DATE OF SERVICE: 04/26/2021 REASON FOR CONSULTATION: Dialysis patient admitted with nausea, vomiting. HISTORY OF PRESENT ILLNESS: The patient is a 50-year-old male with longstanding insulin-dependent di abetes as well as severe gastroparesis, who presented to the hospital because of severe nausea, vomit ing. Unfortunately, this has been a recurring problem and he has had uncountable number of admission s for the same problem. He did get 1 liter of normal saline while in the Emergency Department for un clear reason. At this time, he is not getting any IV fluid. Blood pressure is on the higher side. H is last dialysis was on Thursday through his AV fistula. He denies having any other symptoms like c ough, phlegm, shortness of breath, lower extremity edema, fevers or chills. ALLERGIES: LIST REVIEWED. MEDICATIONS: Home medication list was reviewed in detail and is as per the reconciliation list. PAST MEDICAL AND SURGICAL HISTORY: ESRD, on chronic hemodialysis Thursday, Thursday, Thursday via AV fi stula, coronary artery disease, depression, longstanding type 1 diabetes, diabetic retinopathy, neuro magnus, severe gastroparesis with frequent admission for nausea, vomiting, history of pulmonary emboli sm, on Coumadin, hypertension, history of kidney stones, history of protein-calorie malnutrition, BASILIO D, hip surgery, EGD, endoscopy, appendicectomy, cardiac cath, AV fistula creation. FAMILY HISTORY: Negative for renal disease or dialysis. SOCIAL HISTORY: He is disabled, lives with his parents. He is single. No smoking or alcohol at thi s time. REVIEW OF SYSTEMS: Besides what is listed in the HPI, other systems are reviewed and negative, total of 12 systems reviewed. PHYSICAL EXAMINATION: GENERAL: A middle-aged white male who is not in any overt respiratory distress. He was able to give a detailed account of his medical problem. He is awake, alert, oriented x3. HEENT: Mucous membrane is moist. NECK: Supple. No jugular venous distention. CHEST: Bilaterally clear to auscultation. CARDIOVASCULAR: S1 and S2, regular. ABDOMEN: Soft, nontender. EXTREMITIES: Show no edema. AV fistula has good bruit and thrill. LABORATORY TEST: From today was reviewed and shows a BUN of 60, creatinine of 7.65, sodium 136, pota ssium 4.4, chloride 102, bicarbonate 20. Hemoglobin 10.5. Chest x-ray did not show any overt proble m. ASSESSMENT AND PLAN: A 50-year-old male with end-stage renal disease, on chronic hemodialysis Thursday , Thursday, Thursday secondary to longstanding severe diabetes, now admitted with recurrent nausea and vomiting related with his extremely severe gastroparesis. 1. End-stage renal disease: Today is his dialysis day. He does not have any fluid or electrolyte e mergency at this time, but given that today is his dialysis day, we will still do dialysis today, bu t it will be pretty late in the day. We will do for 3 hours on a 2K bath and take about 2-3 kilos of f. He will get Epogen as well as heparin for dialysis. 2. Gastroparesis with nausea and vomiting: Unfortunately, this has been a recurring problem and has caused uncountable number of admissions within the last few years. Defer to primary team. Job ID: [id number]
--- NOTE | 2021-04-26 15:40 | Hospitalist Progress Note ---
Date of Service April 26, 2021 Assessment & Plan (1) Cyclic vomiting syndrome: Plan: Improved, now agustín po liquids diet add on home reglan prn -advance diet to DMII regular continue antiemetics and lorazepam prn which works well fo rhim (2) Diabetic gastroparesis: Plan: as above (3) Nausea: Plan: Nausea with dry heaves as above, now resolved, 2/2 CVS and gastroparesis - KUB neg - Normal LFTs and bilirubin - Hx of nephrolithiasis- KUB as above with stone in R kidney unchanged - Lipase normal (4) GERD (gastroesophageal reflux disease): Plan: Change Protonix back to po as agustín po (5) Hypertension: Plan: Continue home medications - Notify if >180 (6) Anticoagulated on warfarin: Plan: subtherapeutic at 1.8 but improved from yesterday continue Coumadin -has had his dose increased to 5mg recently - INR in morning-no need for bridging AC - PE in November 26 (7) Pleural effusion: Plan: Chronically managed with PluerX catheter which he drains MWF- no acute process on CXR (8) ESRD (end stage renal disease): Plan: Dialysis dependant- MWF awaiting HD for later this evening (9) 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 Had PleurX drained. Has no other concerns. Has been OOB to the bathroom and no lightheadedness. No CP or SOB. He is moving his bowels Review of Systems Review of Systems: All systems reviewed & are unremarkable except as noted in HPI & below Physical Exam Constitutional: WD/WN, vitals as above ENMT: external ear and nose normal, oropharynx normal Neck: trachea midline, no thyromegaly Respiratory: normal respiratory effort, lungs clear to auscultation Cardiovascular: RRR, no murmur, no edema Chest (Breasts): Chest: normal inspection of chest Gastrointestinal (Abdomen): normal bowel sounds, soft, nontender, no hepatosplenomegaly Musculoskeletal: Extremities: extremities normal to inspection; no cyanosis and no clubbing Skin: no rashes, warm and dry Neurologic: moves all extremities and awake; no focal motor deficits Psychiatric: A+Ox3, euthymic affect Lymphatic: no lymphedema Results & Data Results & Data ([facility]) Vital Signs (Past 12 Hours) Vital Signs Temp Pulse Resp BP Pulse Ox 04/26/21 07:25 36.9 C 83 16 162/74 H 97 Laboratory Results 04/26/21 04/26/21 04/26/21 Range/Units 11:46 09:06 09:06 WBC (4.8-10.8) K/uL RBC (4.7-6.1) M/uL Hgb (14.0-18.0) g/dL Hct (42-52) % MCV (80-100) fL MCH (25-34) pg MCHC (32-36) g/dL RDW Std Deviation (36.4-46.3) fL RDW Coeff of Kami (11.5-14.5) % Plt Count (130-400) K/uL MPV (7.4-10.4) fL Immature Gran % (Auto) % Neut % (Auto) % Lymph % (Auto) % [place] % (Auto) % Eos % (Auto) % Baso % (Auto) % Neut # (Auto) (1.4-6.5) K/uL Lymph # (Auto) (1.2-3.4) K/uL [place] # (Auto) (0.11-0.59) K/uL Eos # (Auto) (0-0.5) K/uL Baso # (Auto) (0-0.2) K/uL Immature Gran # (Auto) (0.00-0.02) K/uL PT 17.8 H (9.0-12.0) Seconds INR 1.8 H (0.9-1.1) APTT (21.0-31.0) Seconds PTT Ratio Sodium 136 (136-145) mmol/L Potassium 4.4 (3.5-5.1) mmol/L Chloride 102 (98-107) mmol/L Carbon Dioxide 20 L (21-32) mmol/L Anion Gap 14.0 H (3-11) BUN 60 H (7-18) mg/dl Creatinine 7.65 H* D (0.6-1.4) mg/dl Est Cr Clr Drug Dosing 10.6 ml/min Est GFR ( Amer) 8.7 ml/min Est GFR (Non-Af Amer) 7.5 ml/min BUN/Creatinine Ratio 7.7 L (10-20) Glucose 169 H (70-99) mg/dl POC Glucose 158 H (70-99) mg/dl Calcium 7.6 L (8.5-10.1) mg/dl Magnesium 2.2 (1.8-2.4) mg/dl Total Bilirubin (0.2-1) mg/dl AST (15-37) U/L ALT (12-78) U/L Alkaline Phosphatase (45-117) U/L Troponin I (0-0.045) ng/ml Total Protein (6.4-8.2) gm/dl Albumin (3.4-5.0) gm/dl Globulin (2.5-4.0) gm/dl Albumin/Globulin Ratio (0.9-2) Lipase (73-393) U/L Specimen Hemolysis SARS-CoV-2, RNA, NAAT (NEGATIVE) 04/26/21 04/26/21 04/25/21 Range/Units 09:06 07:51 23:30 WBC 10.88 H (4.8-10.8) K/uL RBC 3.27 L (4.7-6.1) M/uL Hgb 10.5 L (14.0-18.0) g/dL Hct 32.8 L (42-52) % MCV 100.3 H (80-100) fL MCH 32.1 (25-34) pg MCHC 32.0 (32-36) g/dL RDW Std Deviation 45.9 (36.4-46.3) fL RDW Coeff of Kami 12.6 (11.5-14.5) % Plt Count 434 H (130-400) K/uL MPV 8.0 (7.4-10.4) fL Immature Gran % (Auto) 0.8 % Neut % (Auto) 74.0 % Lymph % (Auto) 15.9 % [place] % (Auto) 7.8 % Eos % (Auto) 1.2 % Baso % (Auto) 0.3 % Neut # (Auto) 8.05 H (1.4-6.5) K/uL Lymph # (Auto) 1.73 (1.2-3.4) K/uL [place] # (Auto) 0.85 H (0.11-0.59) K/uL Eos # (Auto) 0.13 (0-0.5) K/uL Baso # (Auto) 0.03 (0-0.2) K/uL Immature Gran # (Auto) 0.09 H (0.00-0.02) K/uL PT (9.0-12.0) Seconds INR (0.9-1.1) APTT (21.0-31.0) Seconds PTT Ratio Sodium (136-145) mmol/L Potassium (3.5-5.1) mmol/L Chloride (98-107) mmol/L Carbon Dioxide (21-32) mmol/L Anion Gap (3-11) BUN (7-18) mg/dl Creatinine (0.6-1.4) mg/dl Est Cr Clr Drug Dosing ml/min Est GFR ( Amer) ml/min Est GFR (Non-Af Amer) ml/min BUN/Creatinine Ratio (10-20) Glucose (70-99) mg/dl POC Glucose 170 H 175 H (70-99) mg/dl Calcium (8.5-10.1) mg/dl Magnesium (1.8-2.4) mg/dl Total Bilirubin (0.2-1) mg/dl AST (15-37) U/L ALT (12-78) U/L Alkaline Phosphatase (45-117) U/L Troponin I (0-0.045) ng/ml Total Protein (6.4-8.2) gm/dl Albumin (3.4-5.0) gm/dl Globulin (2.5-4.0) gm/dl Albumin/Globulin Ratio (0.9-2) Lipase (73-393) U/L Specimen Hemolysis SARS-CoV-2, RNA, NAAT (NEGATIVE) 04/25/21 04/25/21 04/25/21 Range/Units 21:25 16:00 16:00 WBC (4.8-10.8) K/uL RBC (4.7-6.1) M/uL Hgb (14.0-18.0) g/dL Hct (42-52) % MCV (80-100) fL MCH (25-34) pg MCHC (32-36) g/dL RDW Std Deviation (36.4-46.3) fL RDW Coeff of Kami (11.5-14.5) % Plt Count (130-400) K/uL MPV (7.4-10.4) fL Immature Gran % (Auto) % Neut % (Auto) % Lymph % (Auto) % [place] % (Auto) % Eos % (Auto) % Baso % (Auto) % Neut # (Auto) (1.4-6.5) K/uL Lymph # (Auto) (1.2-3.4) K/uL [place] # (Auto) (0.11-0.59) K/uL Eos # (Auto) (0-0.5) K/uL Baso # (Auto) (0-0.2) K/uL Immature Gran # (Auto) (0.00-0.02) K/uL PT 14.8 H (9.0-12.0) Seconds INR 1.5 H (0.9-1.1) APTT 23.5 (21.0-31.0) Seconds PTT Ratio 0.9 Sodium 134 L (136-145) mmol/L Potassium 4.6 (3.5-5.1) mmol/L Chloride 97 L (98-107) mmol/L Carbon Dioxide 21 (21-32) mmol/L Anion Gap 16.0 H (3-11) BUN 51 H (7-18) mg/dl Creatinine 6.52 H* (0.6-1.4) mg/dl Est Cr Clr Drug Dosing 12.7 ml/min Est GFR ( Amer) 10.5 ml/min Est GFR (Non-Af Amer) 9.1 ml/min BUN/Creatinine Ratio 7.8 L (10-20) Glucose 98 (70-99) mg/dl POC Glucose (70-99) mg/dl Calcium 8.7 (8.5-10.1) mg/dl Magnesium 2.4 (1.8-2.4) mg/dl Total Bilirubin 0.4 (0.2-1) mg/dl AST 24 (15-37) U/L ALT 51 (12-78) U/L Alkaline Phosphatase 191 H (45-117) U/L Troponin I < 0.015 (0-0.045) ng/ml Total Protein 7.8 (6.4-8.2) gm/dl Albumin 3.5 (3.4-5.0) gm/dl Globulin 4.3 H (2.5-4.0) gm/dl Albumin/Globulin Ratio 0.8 L (0.9-2) Lipase 164 (73-393) U/L Specimen Hemolysis SARS-CoV-2, RNA, NAAT NEGATIVE (NEGATIVE) 04/25/21 Range/Units 16:00 WBC 11.90 H (4.8-10.8) K/uL RBC 4.00 L (4.7-6.1) M/uL Hgb 13.2 L (14.0-18.0) g/dL Hct 39.8 L (42-52) % MCV 99.5 (80-100) fL MCH 33.0 (25-34) pg MCHC 33.2 (32-36) g/dL RDW Std Deviation 46.1 (36.4-46.3) fL RDW Coeff of Kami 12.6 (11.5-14.5) % Plt Count 484 H (130-400) K/uL MPV 8.7 (7.4-10.4) fL Immature Gran % (Auto) 0.8 % Neut % (Auto) 75.2 % Lymph % (Auto) 11.3 % [place] % (Auto) 10.7 % Eos % (Auto) 1.8 % Baso % (Auto) 0.2 % Neut # (Auto) 8.95 H (1.4-6.5) K/uL Lymph # (Auto) 1.34 (1.2-3.4) K/uL [place] # (Auto) 1.27 H (0.11-0.59) K/uL Eos # (Auto) 0.22 (0-0.5) K/uL Baso # (Auto) 0.02 (0-0.2) K/uL Immature Gran # (Auto) 0.10 H (0.00-0.02) K/uL PT (9.0-12.0) Seconds INR (0.9-1.1) APTT (21.0-31.0) Seconds PTT Ratio Sodium (136-145) mmol/L Potassium (3.5-5.1) mmol/L Chloride (98-107) mmol/L Carbon Dioxide (21-32) mmol/L Anion Gap (3-11) BUN (7-18) mg/dl Creatinine (0.6-1.4) mg/dl Est Cr Clr Drug Dosing ml/min Est GFR ( Amer) ml/min Est GFR (Non-Af Amer) ml/min BUN/Creatinine Ratio (10-20) Glucose (70-99) mg/dl POC Glucose (70-99) mg/dl Calcium (8.5-10.1) mg/dl Magnesium (1.8-2.4) mg/dl Total Bilirubin (0.2-1) mg/dl AST (15-37) U/L ALT (12-78) U/L Alkaline Phosphatase (45-117) U/L Troponin I (0-0.045) ng/ml Total Protein (6.4-8.2) gm/dl Albumin (3.4-5.0) gm/dl Globulin (2.5-4.0) gm/dl Albumin/Globulin Ratio (0.9-2) Lipase (73-393) U/L Specimen Hemolysis SARS-CoV-2, RNA, NAAT (NEGATIVE) PG Care Time/CCT Total # of Minutes Spent Total Time Spent with Patient: Total time spent is greater than 50% in coordination of care (as documented) at patient's floor/unit and/or counseling patient: Coding Level of Care Code 67070 Subseq Hosp Care Lvl 2 Diagnoses Nausea R11.0 GERD (gastroesophageal reflux disease) K21.9 Hypertension I10 Hypertension type: unspecified Anticoagulated on warfarin Z79.01 Pleural effusion J90 ESRD (end stage renal disease) N18.6 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
[2021-04-26] MEDS ORDERED: METOCLOPRAMIDE HCL 5 MG TABLET PO PRN (15:53)
[2021-04-26] MEDS ORDERED: WARFARIN SOD 5 MG TAB PO SCH (16:00)
[2021-04-26] MEDS ORDERED: SODIUM CHLORIDE 0.9% 1000ML 1,000 ML IV PRN (16:03)
[2021-04-26] MEDS ORDERED: EPOETIN ALFA 10,000 UNITS/ML VIAL IV ONE (16:03)
--- NOTE | 2021-04-26 18:16 | Electrocardiogram Report ---
Test Reason : Blood Pressure : / mmHG Vent. Rate : 084 BPM Atrial Rate : 084 BPM P-R Int : 212 ms QRS Dur : 090 ms QT Int : 400 ms P-R-T Axes : 039 040 034 degrees QTc Int : 472 ms Poor data quality, interpretation may be adversely affected Sinus rhythm with 1st degree A-V block Left atrial enlargement Abnormal ECG When compared with ECG of 23-APR-2021 06:14, No significant change Confirmed by Len Ruvalcaba ([id number]) on 04/26/2021 6:16:36 PM Referred By: Confirmed By:Len Ruvalcaba
[2021-04-26] MEDS: PANTOprazole 40 MG TAB PO SCH (23:08)
[2021-04-27] MEDS: INSULIN ASPART 100 UNITS/ML 3 ML PEN SC SCH ×4 (08:17→12:43)
[2021-04-27] MEDS: INSULIN GLARGINE SOLOSTAR 100 UNITS/ML 3 ML PEN SQ SCH (08:18)
[2021-04-27 08:27] LABS: Basophils # (auto) 0.06 K/uL (0-0.2); Basophils % (auto) 0.6 %; Eosinophils # (auto) 0.21 K/uL (0-0.5); Eosinophils % (auto) 2.1 %; Hematocrit (blood only) 34.9 % (42-52); Hemoglobin 11.3 g/dL (14.0-18.0); Immature Granulocytes # (auto) 0.11 K/uL (0.00-0.02); Immature Granulocytes % (auto) 1.1 %; Lymphocytes # (auto) 1.23 K/uL (1.2-3.4); Lymphocytes % (auto) 12.1 %; Mean Corpuscular Hemoglobin 32.8 pg (25-34); Mean Corpuscular Hgb Conc 32.4 g/dL (32-36); Mean Corpuscular Volume 101.5 fL (80-100); Mean Platelet Volume 8.4 fL (7.4-10.4); Monocytes % (auto) 10.8 %; Neutrophils # (auto) 7.43 K/uL (1.4-6.5); Neutrophils % (auto) 73.3 %; Platelet Count 420 K/uL (130-400); RDW Coefficient of Variation 12.8 % (11.5-14.5); RDW Standard Deviation 47.7 fL (36.4-46.3); Red Blood Count 3.44 M/uL (4.7-6.1); White Blood Count 10.14 K/uL (4.8-10.8)
[2021-04-27 08:36] LABS: Prothrombin Time 19.1 Seconds (9.0-12.0)
[2021-04-27] MEDS: amLODIPine BESYLATE 5 MG TAB PO SCH (09:05)
[2021-04-27] MEDS: ATORVASTATIN 10 MG TAB PO SCH (09:05)
[2021-04-27] MEDS: carvediloL 25 MG TAB PO SCH (09:06)
[2021-04-27] MEDS: SERTRALINE HCL 100 MG TABLET PO SCH (09:06)
[2021-04-27] MEDS: PANTOprazole 40 MG TAB PO SCH (09:06)
[2021-04-27] MEDS: LOSARTAN POTASSIUM 50 MG TAB PO SCH (09:06)
[2021-04-27] MEDS: CHOLECALCIFEROL 1,000 UNITS 25 MCG TAB PO SCH (09:06)
[2021-04-27] MEDS: buPROPion SR 100 MG TABCR PO SCH (09:06)
[2021-04-27 09:15] LABS: RBC Morphology Unremarkable
[2021-04-27 09:38] LABS: BUN Creatinine Ratio 7.3 (10-20); Calcium 7.5 mg/dl (8.5-10.1); Creatinine Clr Calc Pharmacy 13.3 ml/min; Est GFR (African American) 11.3 ml/min; Est GFR (Non-African American) 9.8 ml/min; Magnesium 2.3 mg/dl (1.8-2.4); Potassium 4.3 mmol/L (3.5-5.1)
[2021-04-27 10:05] LABS: Beta-Hydroxybutyrate 2.03 mg/dl (0.2-2.81)
[2021-04-27] MEDS ORDERED: METOCLOPRAMIDE HCL 5 MG TABLET PO SCH (11:30)
--- NOTE | 2021-04-27 12:10 | Discharge Summary ---
Date of Service April 27, 2021 Admission HPI Per Admitting Provider Jorge Alberto De Los Santos is a 50yo male with history of cyclic vomiting, Type I DM, ESRD on HD q M/W/F, CAD, Gastroparesis, prior PE in November 26 (on Coumadin), pleural effusion with PleurX catheter (MWF), renal stone. Patient comes to the emergency department for nausea, with dry heaves and no vomiting. This started this morning following lunch. The patient states he ate cereal and vegetable soup today. Following lunch he started to get nauseated, he reports just dry heaves and retching, he denies any vomiting. He is accompanied by his dad. Patient is due for his dialysis tomorrow at 0500 am and he does not feel that he can't go home because of his nausea. In the EMD the patient received 1liter of saline, Zofran 4mg IV x1 and Compazine x 1 IV. With minimal relief. He was seen at Coumadin clinic yesterday with INR of 1.9 and was started on Coumadin 5mg daily. For his gastroparesis and appetite, he was recently started on Remeron which he feels has helped. Patient will be observed overnight for symptom control and monitoring, nephrology will be consulted for dialysis tomorrow. His BUN is 51 and his ABALONE SHELLER is 6.52, both of which are elevated from his baseline following dialysis, his electrolytes are stable. His mucous membranes are dry, will provider maintenance LR at 80ml for one liter. Principal Diagnosis Cyclical vomiting syndrome Gastroparesis Discharge Exam Constitutional WD/WN, vitals as above ENMT external ear and nose normal, oropharynx normal Neck trachea midline, no thyromegaly Respiratory normal respiratory effort, lungs clear to auscultation Cardiovascular RRR, no murmur, no edema Chest (Breasts) Chest: normal inspection of chest Gastrointestinal (Abdomen) normal bowel sounds, soft, nontender, no hepatosplenomegaly Musculoskeletal Extremities: extremities normal to inspection; no cyanosis and no clubbing Skin no rashes, warm and dry Neurologic moves all extremities and awake; no focal motor deficits Psychiatric A+Ox3, euthymic affect Lymphatic no lymphedema Discharge Data Allergies Allergy/AdvReac Type Severity Reaction Status Date / Time shellfish derived Allergy Severe anaphylaxis Verified 04/25/21 16:25 codeine Allergy Intermediate Hives Verified 11/18/21 16:25 promethazine Allergy Intermediate itchy/hives Verified 04/25/21 16:25 Consultations 04/25/21 19:20 ED Decision to Admit Stat 04/25/21 23:21 Consult Nephrology Routine Hospital Course (1) Cyclical vomiting syndrome: (1) Cyclic vomiting syndrome: � � ��Plan: Improved, now agustín regular diet continue home reglan 5mg tid and lorazepam prn which works well for him (2) Diabetic gastroparesis: � � ��Plan: as above (3) Nausea: � � ��Plan: Nausea with dry heaves as above, now resolved, 2/2 CVS and gastroparesis - KUB neg - Normal LFTs and bilirubin - Hx of nephrolithiasis- KUB as above with stone in R kidney unchanged - Lipase normal (4) GERD (gastroesophageal reflux disease): � � ��Plan: continue Protonix (5) Hypertension: � � ��Plan: Continue home medications (6) Anticoagulated on warfarin: � � ��Plan: therapeutic at 2.0 continue Coumadin -has had his dose increased to 5mg recently - follows with coag clinic - PE in November 26 (7) Pleural effusion: � � ��Plan: Chronically managed with PluerX catheter which he drains MWF- no acute process on CXR (8) ESRD (end stage renal disease): � � ��Plan: Dialysis dependant- MWF received HD here on Thursday (9) 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, with long-term current use of insulin: � � ��Plan: Insulin continue basal bolus insulin some hyperglycemia, labile continue home Basaglar 14 units qAM and SSI and carb coverage (10) Anxiety: � � ��Plan: lorazepam prn Mirtazipine changed to hs dosing � � ��Plan: Dispo-dc to home today, doing very well (2) GERD (gastroesophageal reflux disease): (3) Diabetic gastroparesis: (4) Hypertension: (5) Anticoagulated on warfarin: (6) Pleural effusion: (7) ESRD (end stage renal disease): (8) 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, with long-term current use of insulin: (9) Anemia of chronic disease: (10) Anxiety: (11) assisted (current) use of anticoagulants: (12) Nonischemic cardiomyopathy: (13) Pulmonary embolism: Total Time Total Time Spent Total Time Spent (In Minutes): 35 min Discharge Plan Discharge Items Patient Disposition: Home - Self-Care Reason For Visit: nausea/vomiting Discharge Diagnosis: Cyclical vomiting syndrome, gastroparesis Condition on Discharge: Good Activity: Resume your previous activity Non-emergency contact: Primary Care Provider and [facility] Specialist Call non-emergency contact if: you have any medication questions and your symptoms worsen Follow-up/Referrals: Abbi Ames MD [Primary Care Provider] - (Follow up within 1-2 weeks) Diet: Carb Count or DM1 and Dialysis Renal Addtl Attending Provider Instructions: Please continue your usual medications for gastroparesis to include Reglan and ativan as needed. Follow up for your usual dialysis on Thursday. Pending Studies at Discharge: No Stand-Alone Forms: [facility] Medications and DC Order Prescriptions: Continued acetaminophen 325 mg capsule 650 mg PO Q4H PRN (Reason: Pain (Scale Score 1-3)) RF: 0 pantoprazole 40 mg tablet,delayed release (DR/EC) 40 mg PO BID Qty: 60 RF: 5 lorazepam 0.5 mg tablet 0.5 mg PO Q6H PRN (Reason: Anxiety) Qty: 60 RF: 0 insulin aspart U-100 [Novolog Flexpen U-100 Insulin] 100 unit/mL (3 mL) insulin pen 5 unit SUBCUT TIDM PRN (Reason: sliding scale) Qty: 15 RF: 5 cholecalciferol (vitamin D3) [Vitamin D3] 50 mcg (2,000 unit) capsule 50 mcg PO DAILY Qty: 90 RF: 3 bupropion HCl 100 mg tablet sustained-release 12 hr 100 mg PO DAILY Qty: 30 RF: 3 carvedilol 25 mg tablet 25 mg PO BIDM RF: 0 melatonin 3 mg tablet 3 mg PO HS RF: 0 sertraline 100 mg tablet 100 mg PO QAM Qty: 90 RF: 0 mirtazapine [Remeron] 15 mg tablet 7.5 mg PO DAILY RF: 0 losartan 100 mg Tablet 100 mg PO QAM RF: 0 quetiapine [Seroquel] 25 mg tablet 25 mg PO HS Qty: 30 RF: 0 amlodipine [Norvasc] 5 mg Tablet 5 mg PO BID Qty: 60 RF: 0 atorvastatin 10 mg tablet 10 mg PO QAM RF: 0 Renal Vitamin 0.8 mg Tablet 1 tab PO DAILY RF: 0 trimethobenzamide 300 mg Capsule 300 mg PO TID PRN (Reason: Nausea) RF: 0 Basaglar KwikPen U-100 Insulin 100 unit/mL (3 mL) insulin pen 14 unit SUBCUT QAM RF: 0 ondansetron HCl 4 mg tablet 8 mg PO Q4 PRN (Reason: nausea or vomiting) RF: 0 warfarin 5 mg tablet See Rx Instructions PO UD RF: 0 Changed metoclopramide HCl 5 mg tablet 5 mg PO AC Qty: 30 RF: 0 Discharge Orders: Discharge Order (Routine); Ordered 04/27/21 Ordered By: Mireille Ponce Admission Data Admit Date/Time: 04/25/21 20:35 Attending Provider: Mireille Ponce Admit Provider: Colton Guajardo Primary Care Provider: Abbi Ames V. 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
== END 2021-04-27 16:15 | disposition home or self-care (01) | DRG 393 ==
LOC: ED 15:23 → SUATTDRO 20:35 → 3E 20:35
DX: E10.22 Type 1 diabetes mellitus with diabetic chronic kidney disease; Z88.5 Allergy status to narcotic agent; R79.1 Abnormal coagulation profile; I42.8 Other cardiomyopathies; K21.9 Gastro-esophageal reflux disease without esophagitis; I10 Essential (primary) hypertension; F33.9 Major depressive disorder, recurrent, unspecified; Z79.899 Other long term (current) drug therapy; F41.9 Anxiety disorder, unspecified; Y63.6 Underdosing and nonadministration of necessary drug, medicament or biological substance; E10.43 Type 1 diabetes mellitus with diabetic autonomic (poly)neuropathy; Z20.822 Contact with and (suspected) exposure to COVID-19; N18.6 End stage renal disease; Z79.4 Long term (current) use of insulin; Z79.01 Long term (current) use of anticoagulants; Z99.2 Dependence on renal dialysis; J91.8 Pleural effusion in other conditions classified elsewhere; Z86.711 Personal history of pulmonary embolism; K31.84 Gastroparesis; Z87.442 Personal history of urinary calculi; T45.516A Underdosing of anticoagulants, initial encounter; R11.15 Cyclical vomiting syndrome unrelated to migraine; J90 Pleural effusion, not elsewhere classified; Z91.013 Allergy to seafood; Z88.6 Allergy status to analgesic agent; Z88.8 Allergy status to other drugs, medicaments and biological substances; I25.10 Atherosclerotic heart disease of native coronary artery without angina pectoris; E10.319 Type 1 diabetes mellitus with unspecified diabetic retinopathy without macular edema; I26.99 Other pulmonary embolism without acute cor pulmonale

== ENCOUNTER 2021-07-17 12:40 | Inpatient (IN) ==
--- NOTE | 2021-07-17 13:06 | History & Physical Report ---
Date of Service July 17, 2021 Assessment & Plan (1) Pleural effusion: Plan: Patient has a left-sided Pleurx catheter that was placed in [place] [address] Lazo Pleural fluid most likely secondary to end-stage renal disease Patient has been doing well with the Pleurx catheter. He has a well-documented log of drainage Over the last 3 or 4 times at the fluid was drained it was dark in color and patient began having increased pain around the catheter site Patient presented for evaluation and catheter site appears to be infected Patient will be started on vancomycin and Zosyn intravenously Labs as well as blood cultures x2 have been requested Discussed possibility of removal of catheter with the patient Patient may also benefit from transfer to tertiary care facility for definitive treatment with VATS procedure Pulmonology consulted. Appreciate Dr. Lazo's input (2) 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, with long-term current use of insulin: Plan: Continue with insulin at this time Hemoglobin A1c requested Glycemic consult with pharmacy also requested (3) Cyclic vomiting syndrome: Plan: Continue with antiemetics Patient does not appear to have any motility agents for diabetic gastroparesis No current complaints We will continue to monitor (4) ESRD (end stage renal disease): Plan: Hemodialysis Wednesdays and Fridays Partial treatment this morning Nephrology is consulted Anticipate dialysis while inpatient (5) Anemia of chronic disease: Plan: Not on any iron supplements Hemoglobin is currently pending Baseline hemoglobin between 11 and 12 g/Darrel (6) CAD (coronary artery disease): Plan: Continue clopidogrel Continue antihypertensives including amlodipine, carvedilol, and losartan Vital signs per protocol (7) Diabetic gastroparesis: Plan: No motility agents for home regimen No current complaints of nausea or vomiting Continue home antiemetics and provide supportive care (8) GERD (gastroesophageal reflux disease): Plan: Continue pantoprazole 40 mg p.o. twice daily (9) Diabetic ulcer of right foot: Plan: Wound nurse consult requested Patient follows with the outpatient wound care clinic and was last seen 07/05/2021 (10) Depression: Plan: Continue Wellbutrin and lorazepam Seroquel 25 mg at bedtime (11) DVT prophylaxis: Plan: Patient currently is not on any home anticoagulation We will hold on chemical prophylaxis at this time pending further evaluation of Pleurx catheter SCDs as well as NELLIE sanders ordered Please refer to Dr. Townsend's addendum for further recommendations. History of Present Illness Chief Complaint: Infected pleurX catheter Primary Care Provider: Abbi Ames MD Attending Dr. Townsend This is a 50-year-old male with a past medical history including type I controlled diabetes, chronic right foot ulcer, cyclic vomiting, end-stage renal disease on hemodialysis, GERD, hypertension, nonischemic cardiomyopathy, diabetic gastroparesis, peripheral neuropathy, retinopathy due to diabetes, lumbar radiculopathy, chronic anemia of chronic disease, CAD. Patient called into the outpatient office with complaints of pain and discharge around his left Pleurx catheter site. Patient was brought into the emergency department for evaluation. Patient was seen by Dr. Lazo in room D9. Pleurx catheter was drained and showed exudative appearing fluid. There is also evidence of tenderness and erythema as well as some pussy discharge around the Pleurx catheter insertion site. Patient was afebrile with a T-max of 37 F. He was hemodynamically stable. He was oxygenating well on room air. Patient be admitted for IV antibiotics for probable empyema. Patient denies fever, chills, sweats, rigors. He has no cough. He does have pain around the left Pleurx site. He has no recent travel. He has no recent contact with Covid positive patients. Patient is a non-smoker Allergies Allergy/AdvReac Type Severity Reaction Status Date / Time shellfish derived Allergy Severe anaphylaxis Verified 07/17/21 14:47 codeine Allergy Intermediate Hives Verified 07/17/21 14:47 promethazine Allergy Intermediate itchy/hives Verified 07/17/21 14:47 Home Medications Medication Instructions Recorded Confirmed Type melatonin 3 mg tablet 3 mg PO HS tab 09/05/20 07/17/21 History acetaminophen 325 mg capsule 650 mg PO Q4H PRN cap 09/28/20 07/17/21 History carvedilol 25 mg tablet 25 mg PO BIDM tab 10/01/20 07/17/21 History quetiapine 25 mg tablet (Seroquel) 25 mg PO HS #30 tab 01/07/21 07/17/21 Rx pantoprazole 40 mg tablet,delayed 40 mg PO BID #60 tab 02/12/21 07/17/21 Rx release amlodipine 5 mg tablet (Norvasc) 5 mg PO BID #60 tab 02/17/21 07/17/21 Rx atorvastatin 10 mg tablet 10 mg PO QAM 03/11/21 07/17/21 History vitamin B complex-vitamin C-folic 1 tab PO DAILY 03/13/21 07/17/21 History acid 0.8 mg tablet (Renal Vitamin) mirtazapine 15 mg tablet (Remeron) 7.5 mg PO HS tab 03/19/21 07/17/21 History ondansetron HCl 4 mg tablet 8 mg PO Q4 PRN tab 03/19/21 07/17/21 History lorazepam 0.5 mg tablet 0.5 mg PO Q6H PRN #60 tab 03/27/21 07/17/21 Rx insulin aspart U-100 100 unit/mL 5 unit SUBCUT TIDM PRN #15 ml 04/02/21 07/17/21 Rx (3 mL) subcutaneous pen (Novolog Flexpen U-100 Insulin aspart) cholecalciferol (vitamin D3) 50 50 mcg PO DAILY #90 cap 04/12/21 07/17/21 Rx mcg (2,000 unit) capsule (Vitamin D3) bupropion HCl 100 mg tablet,12 hr 100 mg PO DAILY #30 ea 04/24/21 07/17/21 Rx sustained-release sertraline 100 mg tablet 100 mg PO QAM #90 tab 05/13/21 07/17/21 Rx prochlorperazine maleate 5 mg 5 mg PO BID PRN 06/03/21 07/17/21 History tablet (Compazine) losartan 100 mg tablet 100 mg PO QAM #90 tab 06/04/21 07/17/21 Rx pen needle, diabetic 32 gauge x #500 ea 06/13/21 07/03/21 Rx 5/32" (BD Ultra-Fine Annalise Pen Needle) insulin glargine 100 unit/mL (3 16 unit SUBCUT QAM 07/17/21 07/17/21 History mL) subcutaneous pen (Basaglar KwikPen U-100 Insulin) Past Med/Surg History Medical History Anemia of chronic disease Anticoagulated on warfarin Anxiety AV fistula left upper arm CAD (coronary artery disease) mild, non-obstructive CAD per 10/2018 cardiac cath> [facility] Cardiac murmur follows with Dr. Powell Chronic pleural effusion PleurX catheter placed 01/24/21; pt reports emptying q2d Cyclical vomiting syndrome Depression Diabetes Diabetic retinopathy Dialysis patient Esophagitis ESRD (end stage renal disease) M,W,F (Follows with Dr. Lor Guadalupe; [facility]) GERD (gastroesophageal reflux disease) History of pulmonary embolism 11/2020; unk etiology; started on warfarin Hypertension Kidney stones custodial (current) use of anticoagulants Lumbar radiculopathy Peripheral neuropathy Pulmonary embolism Retinopathy due to secondary diabetes Severe protein-calorie malnutrition Surgical History H/O shoulder surgery RIGHT History of appendectomy History of cardiac cath 10/2018= no stents, no obstructive disease (at [facility]) History of cataract surgery History of esophagogastroduodenoscopy (EGD) (~03/08/20) History of hip surgery left HIP ARTHROSCOPY History of lithotripsy History of open reduction and internal fixation (ORIF) procedure right hip Nausea and vomiting after administration of anesthetic agent Permanent central venous catheter in place Permacath has been removed S/P arteriovenous (AV) fistula creation Family History Grandfather Myocardial infarction Grandfather (Maternal) Family history of diabetes mellitus Uncle Myocardial infarction Father Hypertension Mother Kidney stone Other No family history of adverse response to anesthesia Denies family history of Colon cancer Ovarian cancer Prostate cancer Breast cancer Social History Smoking Status: Never smoker Second Hand Exposure: No; Hx Alcohol Use: No Hx Substance Use: No Preferred Language: Kinyarwanda Communication Ability: Effective Visual Impairment: No Limitations Hearing Ability: Normal Actuarial Internship Required: No Beliefs That Will Affect Care: None marital status: Current Living Situation: Parent Current Living Situation Comment: lives with parents. current occupational status: disabled How many Children do You have: 2 Feels Safe at Home: Yes Childhood Exposure to Second-Hand Smoke: Yes Dental Care, Regularly: No Physical Activity Frequency: 1-2 Times per Week Seatbelt Use: always Sunscreen Use: No Assistive Devices: Cane Review of Systems Review of Systems: All systems reviewed & are unremarkable except as noted in Subjective Physical Exam Physical Exam: GENERAL : No acute distress EYES: No icterus, gaze conjugate NOSE: No evidence of epistaxis MOUTH: No lesions or candidiasis NECK: Supple LUNGS: Bibasilar crackles. Breath sounds diminished on the left side. BACK: Left Pleurx catheter appears to have erythema and some discharge around the catheter itself. No other erythema or ecchymosis. HEART: Regular, rate controlled ABDOMEN: Soft, NT, ND, BS Present EXTREMITIES: No LE edema, pedal pulses intact NEURO: A&OX3 Results & Data Critical Care Results & Data Vital Signs (Past 12 Hours) Vital Signs Temp Pulse Resp BP Pulse Ox 07/17/21 12:59 37.0 C 89 16 156/66 H 94 Lab & Micro Results (Past 24 Hours) RBC 3.64 M/uL (4.7-6.1) L 07/17/21 WBC 12.99 K/uL (4.8-10.8) H 07/17/21 Hgb 11.9 g/dL (14.0-18.0) L 07/17/21 Hct 36.4 % (42-52) L 07/17/21 MCV 100.0 fL (80-100) 07/17/21 MCH 32.7 pg (25-34) 07/17/21 MCHC 32.7 g/dL (32-36) 07/17/21 RDW Standard Deviation 47.1 fL (36.4-46.3) H 07/17/21 RDW Coefficient of Variation 12.9 % (11.5-14.5) 07/17/21 Plt Count 382 K/uL (130-400) 07/17/21 MPV 8.5 fL (7.4-10.4) 07/17/21 Neutrophils (%) (Auto) 72.5 % 07/17/21 Lymphocytes (%) (Auto) 9.5 % 07/17/21 Monocytes # (Auto) 1.56 K/uL (0.11-0.59) H 07/17/21 Eosinophils # (Auto) 0.69 K/uL (0-0.5) H 07/17/21 Immature Granulocyte % (Auto) 0.4 % 07/17/21 Neutrophils # (Auto) 9.42 K/uL (1.4-6.5) H 07/17/21 Lymphocytes # (Auto) 1.23 K/uL (1.2-3.4) 07/17/21 Monocytes # (Auto) 1.56 K/uL (0.11-0.59) H 07/17/21 Eosinophils # (Auto) 0.69 K/uL (0-0.5) H 07/17/21 Basophils # (Auto) 0.04 K/uL (0-0.2) 07/17/21 Immature Granulocyte # (Auto) 0.05 K/uL (0.00-0.02) H 07/17/21 Na 133 mmol/L (136-145) L 07/17/21 K 4.3 mmol/L (3.5-5.1) 07/17/21 Cl 92 mmol/L (98-107) L 07/17/21 CO2 29 mmol/L (21-32) 07/17/21 Anion Gap 12 (3-11) H 07/17/21 BUN 51 mg/dl (6-23) H 07/17/21 Creatinine 7.24 mg/dl (0.6-1.4) H* 07/17/21 Estimated GFR ( Amer) 9.2 ml/min 07/17/21 Estimated GFR (Non-Af Amer) 8.0 ml/min 07/17/21 BUN/Creatinine Ratio 7.0 (10-20) L 07/17/21 Glu 95 mg/dl (70-99(Fasting)) 07/17/21 Ca 8.6 mg/dl (8.5-10.1) 07/17/21 Calcium Level 8.6 mg/dl (8.5-10.1) 07/17/21 14:27 07/17/21 Microbiology 07/17/21 13:00 Gram Stain - Final Pleural Fluid Diagnostic Findings (Past 24 Hours) Chest X-Ray 07/17/21 13:03 XR chest 1V portable CLINICAL HISTORY: Left pleurX catheter COMPARISON STUDY: Chest radiograph performed earlier today. FINDINGS: Left basilar pleural catheter is in place. Small left pleural effusion has slightly decreased in size since prior exam. There is associated left basilar opacity. No pneumothorax is present. Mild cardiomegaly is unchanged. IMPRESSION: Left basilar pleural catheter in place. Small left pleural effusion, slightly decreased in size since prior exam. No pneumothorax. ACT 112: Negative or not required by law. Electronically signed by: Gabino Cool M.D. 07/17/2021 1:37 PM RT Ventilator Mngmt (Last Documented) Ventilator Ordered Settings Respiratory Rate 16 07/17/21 12:59 Ventilator - PT Measurements Respiratory Rate 16 Code Status & VTE Plan Code Status Full resuscitation VTE Prophylaxis Plan VTE Prophylaxis will be ordered: Yes Supervising Physician Co-Signing Physician Notes Attending Attestation and Admission Note: Pt seen/examined, chart reviewed, care plan d/w PA Dev Negrete. I agree with the julien components of his admission documentation. 50yo male with h/o ESRD on HD M/W/F (had partial treatment this am of 2 hours), T1DM, diabetic gastroparesis (follows with Motility clinic at [facility]) - presents with concerns of infected pleurX catheter and increasing pain over his left chest. Patient has had a pleurX catheter since January 2021 after having had several episodes of needing thoracentesis for reaccumulating transudative left-sided pleural effusion. He has been followed in the [facility] [place] [place] Pulmonary clinic for this. He has been draining the pleurX with the assistance of his parents about every 3-4 days. Over the last several months the amount of drainage was generally 100cc or less. However, the last 4 drains have been much larger (250cc to 400cc). Further, the fluid had been clear yellow, and now the fluid is dark and purulent appearing. On 07/15/21 the drain dressing had purulence when the dressing was changed. He has also had 1-2 days of increasing pleuritic pain over the left chest. No fevers. BSGs have been stable. PMH/PSH/allergies/meds/sochx/famhx - reviewed VSS, afebrile gen - nontoxic appearing, NAD, mild pain over left chest with moving or taking deep breaths mouth - MMM neck - no JVD heart - RRR, s1 s2 lungs - minimally decreased BS left base, otherwise CTA b/l chest - left pleurX catheter site with mild purulence at the insertion abd - soft NT ND BS+ vascular - left arm AV fistula with bruit ext - no edema labs reviewed cell counts/gram stain from pleural fluid noted A/P: 1. long-standing pleurX catheter for left-sided transudative pleural effusion - likely from ESRD 2. concern for empyema of left lung given his clinical picture, cell counts/gram stain from fluid, increasing pain, etc 3. T1DM with gastroparesis 4. ESRD on HD M/W/F appreciate pulmonary assistance - defer management of #1, #2 to them IV zosyn/vancomycin while awaiting pleural fluid cultures pain control - norco prn, dilaudid low-dose prn Mr Negrete placed initial insulin orders and also asked pharmacy to provide glycemic recommendations consult [facility] for HD assistance Guevara Townsend MD PG Care Time/CCT Total # of Minutes Spent Total Time Spent with Patient: Total time spent is greater than 50% in coordination of care (as documented) at patient's floor/unit and/or counseling patient: 60 minutes Coding Level of Care Code 85312 Initial Inpt Care Lvl 3 Diagnoses Pleural effusion J90 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, with long-term current use of insulin E10.29 Cyclic vomiting syndrome R11.15 ESRD (end stage renal disease) N18.6 Anemia of chronic disease D63.8 CAD (coronary artery disease) I25.10 Associated angina: without angina Coronary Disease-Associated Artery/Lesion type: [place] artery [place] vs. transplanted heart: [place] heart Diabetic gastroparesis E11.43; K31.84 GERD (gastroesophageal reflux disease) K21.9 Diabetic ulcer of right foot E11.621; L97.519 DVT prophylaxis Z29.9 Depression F33.9 Active/Remission status: remission status unspecified Depression Type: major depressive disorder Major depression recurrence: recurrent Time Spent (min) 60 (1) CAD (coronary artery disease) Associated angina: without angina Coronary Disease-Associated Artery/Lesion type: [place] artery [place] vs. transplanted heart: [place] heart Qualified Code(s): I25.10 - Atherosclerotic heart disease of [place] coronary artery without angina pectoris (2) Depression Active/Remission status: remission status unspecified Depression Type: major depressive disorder Major depression recurrence: recurrent Qualified Code(s): F33.9 - Major depressive disorder, recurrent, unspecified
--- NOTE | 2021-07-17 13:38 | XRay Report ---
XR chest 1V portable CLINICAL HISTORY: Left pleurX catheter COMPARISON STUDY: Chest radiograph performed earlier today. FINDINGS: Left basilar pleural catheter is in place. Small left pleural effusion has slightly decreas ed in size since prior exam. There is associated left basilar opacity. No pneumothorax is present. Mi ld cardiomegaly is unchanged. IMPRESSION: Left basilar pleural catheter in place. Small left pleural effusion, slightly decreased in size since prior exam. No pneumothorax. ACT 112: Negative or not required by law. Electronically signed by: Gabino Cool M.D. 07/17/2021 1:37 PM
[2021-07-17 13:58] LABS: Glucose Pleural Fluid 112 mg/dl
[2021-07-17 14:03] LABS: Amylase Pleural Fluid 27 U/L; LDH Pleural Fluid 434 U/L; Total Protein Pleural Fluid 4.8 g/dl
[2021-07-17] MEDS ORDERED: HYDROmorphone INJ 0.5 MG/0.5 ML SYR IV STA ×2 (14:06→16:47)
[2021-07-17 14:23] LABS: Appearance Pleural Fluid CLOUDY; Basophils, Fluid 0 %; Color Pleural Fluid AMBER; Eosinophils, Fluid 1 %; Lymphocytes, Fluid 8 %; Mono,Macrophage,Mesothelial 2 %; Neutrophils, Fluid 89 %; RBC Pleural Fluid (A) 19000 /uL; Source Pleural Fluid LEFT LUNG; WBC Pleural Fluid (A) 7000 /uL
[2021-07-17 14:45] LABS: Basophils # (auto) 0.04 K/uL (0-0.2); Basophils % (auto) 0.3 %; Eosinophils # (auto) 0.69 K/uL (0-0.5); Eosinophils % (auto) 5.3 %; Hematocrit (blood only) 36.4 % (42-52); Hemoglobin 11.9 g/dL (14.0-18.0); Immature Granulocytes # (auto) 0.05 K/uL (0.00-0.02); Immature Granulocytes % (auto) 0.4 %; Lymphocytes # (auto) 1.23 K/uL (1.2-3.4); Lymphocytes % (auto) 9.5 %; Mean Corpuscular Hemoglobin 32.7 pg (25-34); Mean Corpuscular Hgb Conc 32.7 g/dL (32-36); Mean Platelet Volume 8.5 fL (7.4-10.4); Monocytes # (auto) 1.56 K/uL (0.11-0.59); Neutrophils # (auto) 9.42 K/uL (1.4-6.5); Neutrophils % (auto) 72.5 %; Platelet Count 382 K/uL (130-400); RDW Coefficient of Variation 12.9 % (11.5-14.5); RDW Standard Deviation 47.1 fL (36.4-46.3); Red Blood Count 3.64 M/uL (4.7-6.1); White Blood Count 12.99 K/uL (4.8-10.8)
[2021-07-17 15:13] LABS: Calcium 8.6 mg/dl (8.5-10.1); Creatinine Clr Calc Pharmacy 11.6 ml/min; Est GFR (African American) 9.2 ml/min; Potassium 4.3 mmol/L (3.5-5.1)
[2021-07-17] MEDS ORDERED: PHARMACY GLYCEMIC MGMT CONSULT PRN (16:27)
[2021-07-17] MEDS ORDERED: CARBOHYDRATES FOR HYPOGLYCEMIA PO PRN (16:27)
[2021-07-17] MEDS ORDERED: PIPERACILL/TAZOBAC CONSULT ACTIVE PRN (16:27)
[2021-07-17] MEDS ORDERED: VANCOMYCIN CONSULT ACTIVE PRN (16:27)
[2021-07-17] MEDS ORDERED: GLUCOSE 10 TABS/TUBE PO PRN (16:27)
[2021-07-17] MEDS ORDERED: GLUCOSE 40% GEL 15 GM TUBE PO PRN (16:27)
[2021-07-17] MEDS ORDERED: DEXTROSE 50% 50 ML SYRINGE IV PRN (16:27)
[2021-07-17] MEDS ORDERED: GLUCAGON FOR INJ 1 MG VIAL SQ PRN (16:27)
[2021-07-17] MEDS ORDERED: ACETAMINOPHEN 325 MG TAB PO PRN (16:40)
[2021-07-17] MEDS ORDERED: PIPERACILLIN/TAZOBACTAM 3.375 GM in DEXTROSE 5% 100 ML IV ONE (17:00)
[2021-07-17] MEDS ORDERED: VANCOMYCIN HCL 1,000 MG in SODIUM CHLORIDE 0.9% 250 ML IV ONE (17:00)
--- NOTE | 2021-07-17 17:00 | Pharmacy Report ---
Pharmacy Abx Dose Short Note - Date of Service July 17, 2021 - Assessment & Plan Assessment 50 year old M receiving vancomycin/Zosyn for treatment of empyema and infected PleurX catheter Day # 1 of antimicrobial therapy. Plan Vancomycin * vancomycin 1000 mg IV x 1 (20 mg/kg) - patient hemodialysis MWF with last session this morning * Goal trough level for empyema : 15 to 20 mcg/mL * Random level ordered for: 07/18/21 Zosyn * 3.375 gm IV x 1 then 3.375 gm IV q12 hours due to hemodialysis status. Pharmacy will continue to follow and will adjust dose/frequency as necessary. Thank you.
[2021-07-17] MEDS: carvediloL 25 MG TAB PO SCH (17:16)
[2021-07-17] MEDS: INSULIN ASPART PER UNIT SC SCH ×2 (17:20→21:14)
[2021-07-17] MEDS ORDERED: PNEUMOCOCCAL POLYSACCHARIDES 25 MCG/0.5 ML VIAL/SYR IM ONE (17:37)
[2021-07-17] MEDS: HYDROCODONE/ACETAMOPHEN 5/325MG TAB PO PRN (19:30)
[2021-07-17] MEDS: amLODIPine BESYLATE 5 MG TAB PO SCH (20:23)
[2021-07-17] MEDS: MELATONIN 3 MG TAB PO SCH (20:23)
[2021-07-17] MEDS: PANTOprazole 40 MG TAB PO SCH (20:23)
[2021-07-17] MEDS: QUEtiapine FUMARATE 25 MG TABLET PO SCH (20:23)
[2021-07-17] MEDS ORDERED: Nursing to Pharmacy Communication SCH (20:30)
[2021-07-17] MEDS: ONDANSETRON 4 MG OD TAB PO PRN (21:04)
[2021-07-17] MEDS: MIRTAZAPINE TAB 15 MG TAB PO SCH (21:05)
[2021-07-18] MEDS: PIPERACILLIN/TAZOBACTAM 3.375 GM in DEXTROSE 5% 100 ML IV SCH ×2 (01:52→14:36)
[2021-07-18] MEDS: PROCHLORPERAZINE MALEATE 5 MG TAB PO PRN ×2 (01:54→18:17)
[2021-07-18] MEDS: HYDROmorphone INJ 0.5 MG/0.5 ML SYR IV PRN ×3 (01:59→17:28)
--- NOTE | 2021-07-18 07:41 | Hospitalist Progress Note ---
Date of Service July 18, 2021 Assessment & Plan (1) Pleural effusion: Plan: Patient has a left-sided Pleurx catheter that was placed in January [address] Lazo. Seen in clinic 07/17/21 for concerns for infection, draining 2-300ml brown colored pleural fluid Q2-3 days compared to prior 100cc clearer fluid Pleural fluid most likely secondary to end-stage renal disease initially, however does appear to have component of infection today Culture from office pending Pulmonary on consult Continued on Vanco/Zosyn WBC 12.9k--> 10k Afebrile (Tmax 37C) Blood cultures pending -- monitor Cultures from pleural fluid with staph species --> FOLLOW MRSA nasal negative Discussed possibility of removal of catheter with the patient. Per pulm, if no significant improvement/clinical deterioration, will plan to remove catheter Pulmonology consulted. Appreciate Dr. Lazo's input --> starting MIST II protocol today. Patient may also benefit from transfer to tertiary care facility for definitive treatment with VATS procedure -- case previously discussed by pulm with [facility] regarding care and they rec'd broad spectrum abx and drainage of catheter. 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 no n/v at this time No current complaints We will continue to monitor (4) ESRD (end stage renal disease): Plan: Hemodialysis Wednesdays and Fridays Partial treatment this morning Nephrology is consulted Anticipate dialysis while inpatient -- had 1/2 session yesterday, and per nephrology plans for 3.5hr HD for tomorrow. Not to give heparin given PleurX cateter (5) Anemia of chronic disease: Plan: Not on any iron supplements Hemoglobin is currently pending Baseline hemoglobin between 11 and 12 g/Darrel, hgb 10 on AM, had been having increased darkened/bloody drainage MAXILLOFACIAL PROSTHODONTIST from pleurx --> procrit in AM prior to HD CBC in AM (6) CAD (coronary artery disease): Plan: underwent cardiac cath October 2018 which did not show any obstructive artery disease Continue antihypertensives including amlodipine, carvedilol, and losartan --> changed amlodipine to 10mg daily as last prescribed by nephrology. had been 5mg BID prior continue statin not on ASA as per Cardio recommendation from 10/2018 Vital signs per protocol (7) Diabetic gastroparesis: Plan: No motility agents for home regimen No current complaints of nausea or vomiting Continue home antiemetics and provide supportive care (8) GERD (gastroesophageal reflux disease): Plan: Continue pantoprazole 40 mg p.o. twice daily (9) Diabetic ulcer of right foot: Plan: Wound nurse consult requested Patient follows with the outpatient wound care clinic and was last seen 07/05/2021 (10) Depression: Plan: Continue Wellbutrin and lorazepam Seroquel 25 mg at bedtime (11) DVT prophylaxis: Plan: Patient currently is not on any home anticoagulation-- We will hold on chemical prophylaxis at this time pending further evaluation of Pleurx catheter SCDs as well as ENLLIE sanders ordered Admission and Anticipated Discharge Date Admission Date: July 17, 2021 Supervising Physician Co-Signing Physician Notes PA Supervision Note: I did not personally see or examine the patient today, but I verified all julien points of CAROL Medina's assessment and plan with the following exceptions/additions: None Subjective patient evaluated this morning doing alright pain controlled , rated 4/10 prior was 7/10 before medication seen by pulmonary this morning and wound care, dressing to chest tube with aquacell and optifoam. MIST II protocol for later today, discussed to alert if any increased pain/discomfort/cough etc and we may stop after first dose but otherwise would continue Q12. Discussed mcc if ineffective may need to consider surgery but will see how this goes. Initial cx staph species from office -- continue broad spectrum until species identified. MRSA nasal negative. No fever/chills, no abdominal pain, nausea or vomiting, just generalized malaise and pain at site of Pleurx catheter. Did endorse increased output over past couple of days, darker, with purulant drainage on dressing. Review of Systems Review of Systems: All systems reviewed & are unremarkable except as noted in HPI & below Physical Exam Physical Exam: Constitutional: WD male sitting up in bed, mild distress Eyes: pupils equal/reactive to light Trachea midline without deviation Recp: purulent material draining around Pleurex, now covered with aquacell/optifoam with induration. tender to palpation. CTAB with exception of crackles L lung base CV: RRR, +systolic murmur, no LE edema, +AV fistula with +thrill GI: +BS, distended, non-tender, no guarding/rigidity MSK/Neuro: moves all extremities, no facial droop/slurred speech, no focal deficit Skin: warm, dry, dried ulcer to dorsal distal aspect R foot Results & Data Results & Data ([facility]) Vital Signs (Past 12 Hours) Vital Signs Temp Pulse Resp BP Pulse Ox 07/18/21 02:05 62 16 112/68 96 07/17/21 23:50 62 101/59 L 07/17/21 22:31 36.5 C 62 14 91/54 L 95 07/17/21 20:20 73 109/63 Laboratory Results 07/18/21 07/18/21 07/18/21 Range/Units 11:54 09:27 08:20 WBC (4.8-10.8) K/uL RBC (4.7-6.1) M/uL Hgb (14.0-18.0) g/dL Hct (42-52) % MCV (80-100) fL MCH (25-34) pg MCHC (32-36) g/dL RDW Std Deviation (36.4-46.3) fL RDW Coeff of Kami (11.5-14.5) % Plt Count (130-400) K/uL MPV (7.4-10.4) fL Immature Gran % (Auto) % Neut % (Auto) % Lymph % (Auto) % [place] % (Auto) % Eos % (Auto) % Baso % (Auto) % Neut # (Auto) (1.4-6.5) K/uL Lymph # (Auto) (1.2-3.4) K/uL [place] # (Auto) (0.11-0.59) K/uL Eos # (Auto) (0-0.5) K/uL Baso # (Auto) (0-0.2) K/uL Immature Gran # (Auto) (0.00-0.02) K/uL Sodium (136-145) mmol/L Potassium (3.5-5.1) mmol/L Chloride (98-107) mmol/L Carbon Dioxide (21-32) mmol/L Anion Gap (3-11) BUN (6-23) mg/dl Creatinine (0.6-1.4) mg/dl Est Cr Clr Drug Dosing ml/min Est GFR ( Amer) ml/min Est GFR (Non-Af Amer) ml/min BUN/Creatinine Ratio (10-20) Glucose (70-99(Fasting)) mg/dl POC Glucose 143 H (70-99) mg/dl Estimat Average Glucose mg/dl Hemoglobin A1c (4.5-5.6) % Calcium (8.5-10.1) mg/dl Total Bilirubin (0.2-1.0) mg/dl AST (13-39) U/L ALT (7-52) U/L Alkaline Phosphatase (34-104) U/L Total Protein (6.0-8.3) gm/dl Albumin (3.4-5.0) gm/dl Globulin (2.5-4.0) gm/dl Albumin/Globulin Ratio (0.9-2) Vitamin B12 499 (211-911) pg/ml Folate > 22.30 (>5.38) ng/ml Nasal Screen MRSA (PCR) Negative (Negative) Random Vancomycin (10-20) mcg/ml 07/18/21 07/18/21 07/18/21 Range/Units 08:00 07:17 07:17 WBC 10.07 (4.8-10.8) K/uL RBC 3.11 L (4.7-6.1) M/uL Hgb 10.0 L (14.0-18.0) g/dL Hct 31.3 L (42-52) % MCV 100.6 H (80-100) fL MCH 32.2 (25-34) pg MCHC 31.9 L (32-36) g/dL RDW Std Deviation 47.5 H (36.4-46.3) fL RDW Coeff of Kami 13.0 (11.5-14.5) % Plt Count 362 (130-400) K/uL MPV 8.6 (7.4-10.4) fL Immature Gran % (Auto) 0.4 % Neut % (Auto) 72.8 % Lymph % (Auto) 11.0 % [place] % (Auto) 12.5 % Eos % (Auto) 2.9 % Baso % (Auto) 0.4 % Neut # (Auto) 7.33 H (1.4-6.5) K/uL Lymph # (Auto) 1.11 L (1.2-3.4) K/uL [place] # (Auto) 1.26 H (0.11-0.59) K/uL Eos # (Auto) 0.29 (0-0.5) K/uL Baso # (Auto) 0.04 (0-0.2) K/uL Immature Gran # (Auto) 0.04 H (0.00-0.02) K/uL Sodium 132 L (136-145) mmol/L Potassium 5.0 (3.5-5.1) mmol/L Chloride 93 L (98-107) mmol/L Carbon Dioxide 24 (21-32) mmol/L Anion Gap 15 H (3-11) BUN 63 H (6-23) mg/dl Creatinine 8.50 H* D (0.6-1.4) mg/dl Est Cr Clr Drug Dosing 10.4 ml/min Est GFR ( Amer) 7.6 ml/min Est GFR (Non-Af Amer) 6.6 ml/min BUN/Creatinine Ratio 7.4 L (10-20) Glucose 193 H (70-99(Fasting)) mg/dl POC Glucose 189 H (70-99) mg/dl Estimat Average Glucose mg/dl Hemoglobin A1c (4.5-5.6) % Calcium 7.9 L (8.5-10.1) mg/dl Total Bilirubin 0.4 (0.2-1.0) mg/dl AST 9 L (13-39) U/L ALT 12 (7-52) U/L Alkaline Phosphatase 76 (34-104) U/L Total Protein 6.3 (6.0-8.3) gm/dl Albumin 3.3 L (3.4-5.0) gm/dl Globulin 3.0 (2.5-4.0) gm/dl Albumin/Globulin Ratio 1.1 (0.9-2) Vitamin B12 (211-911) pg/ml Folate (>5.38) ng/ml Nasal Screen MRSA (PCR) (Negative) Random Vancomycin (10-20) mcg/ml 07/18/21 07/18/21 07/17/21 Range/Units 07:17 07:17 20:42 WBC (4.8-10.8) K/uL RBC (4.7-6.1) M/uL Hgb (14.0-18.0) g/dL Hct (42-52) % MCV (80-100) fL MCH (25-34) pg MCHC (32-36) g/dL RDW Std Deviation (36.4-46.3) fL RDW Coeff of Kami (11.5-14.5) % Plt Count (130-400) K/uL MPV (7.4-10.4) fL Immature Gran % (Auto) % Neut % (Auto) % Lymph % (Auto) % [place] % (Auto) % Eos % (Auto) % Baso % (Auto) % Neut # (Auto) (1.4-6.5) K/uL Lymph # (Auto) (1.2-3.4) K/uL [place] # (Auto) (0.11-0.59) K/uL Eos # (Auto) (0-0.5) K/uL Baso # (Auto) (0-0.2) K/uL Immature Gran # (Auto) (0.00-0.02) K/uL Sodium (136-145) mmol/L Potassium (3.5-5.1) mmol/L Chloride (98-107) mmol/L Carbon Dioxide (21-32) mmol/L Anion Gap (3-11) BUN (6-23) mg/dl Creatinine (0.6-1.4) mg/dl Est Cr Clr Drug Dosing ml/min Est GFR ( Amer) ml/min Est GFR (Non-Af Amer) ml/min BUN/Creatinine Ratio (10-20) Glucose (70-99(Fasting)) mg/dl POC Glucose 231 H (70-99) mg/dl Estimat Average Glucose 160 mg/dl Hemoglobin A1c 7.2 H (4.5-5.6) % Calcium (8.5-10.1) mg/dl Total Bilirubin (0.2-1.0) mg/dl AST (13-39) U/L ALT (7-52) U/L Alkaline Phosphatase (34-104) U/L Total Protein (6.0-8.3) gm/dl Albumin (3.4-5.0) gm/dl Globulin (2.5-4.0) gm/dl Albumin/Globulin Ratio (0.9-2) Vitamin B12 (211-911) pg/ml Folate (>5.38) ng/ml Nasal Screen MRSA (PCR) (Negative) Random Vancomycin 14.1 (10-20) mcg/ml PG Care Time/CCT Total # of Minutes Spent Total Time Spent with Patient: Total time spent is greater than 50% in coordination of care (as documented) at patient's floor/unit and/or counseling patient: Coding Level of Care Code 02524 Subseq Hosp Care Lvl 3 Diagnoses Pleural effusion J90 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 transplanted heart: [place] heart Diabetic gastroparesis E11.43; K31.84 GERD (gastroesophageal reflux disease) K21.9 Diabetic ulcer of right foot E11.621; L97.519 Depression F33.9 Active/Remission status: remission status unspecified Depression Type: major depressive disorder Major depression recurrence: recurrent DVT prophylaxis Z29.9 (1) CAD (coronary artery disease) Associated angina: without angina Coronary Disease-Associated Artery/Lesion type: [place] artery [place] vs. transplanted heart: [place] heart Qualified Code(s): I25.10 - Atherosclerotic heart disease of [place] coronary artery without angina pectoris (2) Depression Active/Remission status: remission status unspecified Depression Type: major depressive disorder Major depression recurrence: recurrent Qualified Code(s): F33.9 - Major depressive disorder, recurrent, unspecified
[2021-07-18 07:57] LABS: Basophils # (auto) 0.04 K/uL (0-0.2); Basophils % (auto) 0.4 %; Eosinophils # (auto) 0.29 K/uL (0-0.5); Eosinophils % (auto) 2.9 %; Hematocrit (blood only) 31.3 % (42-52); Immature Granulocytes # (auto) 0.04 K/uL (0.00-0.02); Immature Granulocytes % (auto) 0.4 %; Lymphocytes # (auto) 1.11 K/uL (1.2-3.4); Mean Corpuscular Hemoglobin 32.2 pg (25-34); Mean Corpuscular Hgb Conc 31.9 g/dL (32-36); Mean Corpuscular Volume 100.6 fL (80-100); Mean Platelet Volume 8.6 fL (7.4-10.4); Monocytes # (auto) 1.26 K/uL (0.11-0.59); Monocytes % (auto) 12.5 %; Neutrophils # (auto) 7.33 K/uL (1.4-6.5); Neutrophils % (auto) 72.8 %; Platelet Count 362 K/uL (130-400); RDW Standard Deviation 47.5 fL (36.4-46.3); Red Blood Count 3.11 M/uL (4.7-6.1); White Blood Count 10.07 K/uL (4.8-10.8)
[2021-07-18 08:28] LABS: Albumin Globulin Ratio 1.1 (0.9-2); Albumin Level 3.3 gm/dl (3.4-5.0); BUN Creatinine Ratio 7.4 (10-20); Bilirubin,Total 0.4 mg/dl (0.2-1.0); Calcium 7.9 mg/dl (8.5-10.1); Creatinine Clr Calc Pharmacy 10.4 ml/min; Est GFR (African American) 7.6 ml/min; Est GFR (Non-African American) 6.6 ml/min; Total Protein 6.3 gm/dl (6.0-8.3)
[2021-07-18] MEDS ORDERED: MIRTAZAPINE TAB 15 MG TAB PO SCH (09:00)
[2021-07-18] MEDS: INSULIN GLARGINE SOLOSTAR 100 UNITS/ML 3 ML PEN SQ SCH (09:01)
[2021-07-18] MEDS: INSULIN ASPART PER UNIT SC SCH ×4 (09:01→22:02)
[2021-07-18] MEDS: carvediloL 25 MG TAB PO SCH ×2 (09:08→17:32)
[2021-07-18] MEDS: ATORVASTATIN 10 MG TAB PO SCH (09:08)
[2021-07-18] MEDS: buPROPion SR 100 MG TABCR PO SCH (09:08)
[2021-07-18] MEDS: amLODIPine BESYLATE 5 MG TAB PO SCH (09:08)
[2021-07-18] MEDS: NEPHROCAPS PO SCH (09:09)
[2021-07-18] MEDS: PANTOprazole 40 MG TAB PO SCH ×2 (09:10→19:56)
[2021-07-18] MEDS: SERTRALINE HCL 100 MG TABLET PO SCH (09:10)
[2021-07-18] MEDS: LOSARTAN POTASSIUM 50 MG TAB PO SCH (09:10)
--- NOTE | 2021-07-18 09:17 | Pharmacy Report ---
Pharmacy Glycemic Short Note 2 - Date of Service July 18, 2021 - Glycemic Short BSG Results (Last 24 hours): 07/17/21 07/17/21 07/17/21 14:27 16:19 16:35 Glucose 95 POC Glucose 57 L* 92 07/17/21 07/18/21 07/18/21 20:42 07:17 08:00 Glucose 193 H POC Glucose 231 H 189 H OUTPATIENT ANTIDIABETIC REGIMEN: * Basaglar 16 units SQ AM * NovoLog TIDM, CF 45, CR 10, about 30 units/day ASSESSMENT: * 50 year old male admitted with possible infected Pleur-X catheter, started on IV Vanc + Zosyn. * Type 1 diabetic, ESRD on HD MWF, known to pharmacy glycemic service. Started on Lantus + NovoLog on admission, have had good glycemic control on regular + NPH insulin in the past while inpatient, will consider switch to those if inadequate control. * Begin with reduced home dose of basal, BSG on admission 57mg/dl. PLAN FOR INPATIENT GLYCEMIC CONTROL: * Hold outpatient oral diabetes medications * Basal insulin * Lantus 12 units SQ daily * Bolus insulin * NovoLog per scale ACHS or Q6hrs while NPO * Goal Range: Low 110 mg/dL - High 160 mg/dL - for type 1 DM on HD * Correction Factor: 35 mg/dL/unit * Nutritional / Prandial insulin per carb ratio of 1 unit per 10 grams CHO consumed PLAN FOR DISCHARGE: * Patient's A1c = 7.1% 05/07/21, new A1c pending * However, this result is likely somewhat unreliable in ESRD patients d/t interactions between the A1c analyzing technique and high levels of urea in ESRD, reduced RBC life span, iron deficiency anemia, and EPO administration. * Continue home regimen and adjust based on SMBG.
--- NOTE | 2021-07-18 09:24 | CT Scan Report ---
CT chest diagnostic wo con CT DOSE: 205.83 mGy.cm HISTORY: pleural effusion, chest wall infection TECHNIQUE: Multiaxial CT images of the chest were performed without contrast. A dose lowering techni que was utilized adhering to the principles of ALARA. COMPARISON: Abdomen and pelvis CT 03/04/2021. FINDINGS: The central airways are patent. There is a 5 mm nodule within the base of the left lower lo be on image 204. Patchy densities at the left lung base are nonspecific but favor atelectasis. A pneu monia could also have a similar appearance in the appropriate clinical setting. There is a small part ially loculated left pleural effusion the left lung base. This extends into the left major fissure. T here is a partially visualized left basilar pleural catheter which appears in good position. No evide nce for extension of the fluid into the chest wall. Limited views of the upper abdomen demonstrate a normal liver and spleen. Normal esophagus. Multiple subcentimeter mediastinal lymph nodes do not meet CT criteria for pathologic involvement. No hilar lymphadenopathy. Normal caliber thoracic aorta. Mil d calcified plaque within the coronary arteries. The heart is mildly enlarged. Mild bilateral gynecom astia is noted. No pneumothorax. A few bibasilar linear densities favor subsegmental atelectasis. Chr onic T11 and T12 superior endplate compression deformities remain unchanged. No acute fractures ident ified within the chest. IMPRESSION: 1. There is a small partially loculated left basilar pleural effusion with an associated pleural cath eter. No evidence for chest wall extension of the pleural fluid. 2. No pneumothorax. 3. A 5 mm indeterminate pulmonary nodule within left lower lobe. 4. Mild cardiomegaly. 5. Patchy bibasilar densities, left greater than right, favor atelectasis. A pneumonia could also a s imilar appearance in the appropriate clinical setting. Please refer to below summary of Fleischner criteria recommendations for follow-up of incidental CT n odules (Adan Haley, Guidelines for management of small pulmonary nodules detected on CT scans: A sta tement from the Fleischner Society, Radiology 237: [phone].) SOLID NODULES Solitary nodule size: <6 mm * Low risk patients: no follow-up needed * high risk patients: optional CT at 12 months Solitary nodule size: 6-8 mm * Low risk patients: follow-up at 6-12 months, then consider further follow-up at 18-24 months * high risk patients: initial follow-up CT at 6-12 months and then at 18-24 months if no change Solitary nodule size: >8 mm * either low or high risk patients - consider follow-up CT at 3 months, and/or CT-PET, and/or biopsy Multiple nodules size: <6 mm * Low risk patients: no routine follow-up * high risk patients: optional CT at 12 months Multiple nodules size: 6-8 mm * Low risk patients: follow-up at 3-6 months, then consider further follow-up at 18-24 months * high risk patients: follow-up at 3-6 months, then at 18-24 months if no change Multiple nodules size: >8 mm * Low risk patients: follow-up at 3-6 months, then consider further follow-up at 18-24 months * high risk patients: follow-up at 3-6 months, then at 18-24 months if no change Note: newly detected indeterminate nodule in persons 35 years of age or older. * Low risk patients: minimal or absent history of smoking and/or other known risk factors * high risk patients: history of smoking or of other known risk factors (e.g. first degree relative with lung cancer, or exposure to asbestos, radon, uranium) * if a nodule up to 8 mm is partly solid or is ground glass further follow-up is required after 24 m onths to exclude possible slow growing adenocarcinoma (DARIAN) SUBSOLID NODULES Solitary pure ground-glass nodule * nodule size <6 mm - no CT follow-up required * nodule size >=6 mm - follow-up CT at 6-12 months, then every 2 years until 5 years Solitary part-solid nodule * nodule size <6 mm - no CT follow-up required * nodule size >=6 mm - follow-up CT at 3-6 months. If unchanged, and solid component remains <6 mm, then annual follow-up for 5 years Multiple subsolid nodules * nodule size <6 mm - follow-up CT at 3-6 months, consider further follow-up at 2 and 4 years if sta ble * nodule size >=6 mm - follow-up CT at 3-6 months, subsequent management based on the most suspiciou s nodule(s) ACT 112: Negative or not required by law. Electronically signed by: Cristiano Brown M.D. 07/18/2021 9:23 AM
[2021-07-18] MEDS ORDERED: VANCOMYCIN HCL 500 MG in DEXTROSE 5% 100 ML IV SCH (10:00)
[2021-07-18 10:47] LABS: Folate (Folic Acid) > 22.30 ng/ml (>5.38)
[2021-07-18 10:48] LABS: Vitamin B12 499 pg/ml (211-911)
--- NOTE | 2021-07-18 11:01 | Pulmonary Consultation ---
Date of Consultation July 18, 2021 Assessment & Plan (1) Cellulitis of chest wall: (2) Recurrent pleural effusion on left: Patient appears to be responding well to IV antibiotics. Cultures from the catheter insertion site are growing Staphylococcus species along with cultures from the pleural fluid which are also growing Staphylococcus. Unclear whether this represents an empyema versus a biofilm that has developed on the Pleurx catheter itself. He does not appear septic at this time. If there is no significant improvement in the cellulitis or there is clinical deterioration, will plan to remove the catheter. At this time we will try to treat with antibiotics and instill TPA/dornase twice daily into the catheter to drain the pleural effusion. Wound consult placed and appreciate their input. Discussed with the wound consult nurse at bedside. He may require definitive VATS procedure. Continue broad-spectrum antibiotics and await sensitivities for the Staphylococcus species noted on the cultures. Thank you for the consult. We will continue to follow with you. History of Present Illness Reason for Consultation: Pleurx catheter with concern for infection Attending Physician: Mireille Ponce MD History of Present Illness 50-year-old male with a history of type 1 insulin-dependent diabetes mellitus, recurrent left pleural effusion and end-stage renal disease on hemodialysis who was seen in the pulmonary outpatient setting yesterday due to concerns of an infection of his pleural catheter. He was directly admitted to the hospital and vancomycin and Zosyn was initiated. He continues to have pain around the Pleurx catheter site and pain at the end of drainage. He also has a history of cyclical vomiting, but denies any significant nausea at present. He has been afebrile, but notes that he felt "warm" at home. He relates that he has been very careful with his Pleurx catheter and that his father has been diligently draining the catheter approximately every 2 to 3 days. He relates that he started having pain around the Pleurx catheter site and redness sometime in mid June. On admission he was found to have an elevated white count and a left pleural effusion noted on x-ray. CT chest that was ordered by me was personally reviewed which demonstrated a small loculated left pleural effusion with atelectasis at the left lung base. MRSA screen on admission was negative. Allergies Allergy/AdvReac Type Severity Reaction Status Date / Time shellfish derived Allergy Severe anaphylaxis Verified 07/17/21 14:47 codeine Allergy Intermediate Hives Verified 07/17/21 14:47 promethazine Allergy Intermediate itchy/hives Verified 07/17/21 14:47 Home Medications Medication Instructions Recorded Confirmed Type melatonin 3 mg tablet 3 mg PO HS tab 09/05/20 07/17/21 History acetaminophen 325 mg capsule 650 mg PO Q4H PRN cap 09/28/20 07/17/21 History carvedilol 25 mg tablet 25 mg PO BIDM tab 10/01/20 07/17/21 History quetiapine 25 mg tablet (Seroquel) 25 mg PO HS #30 tab 01/07/21 07/17/21 Rx pantoprazole 40 mg tablet,delayed 40 mg PO BID #60 tab 02/12/21 07/17/21 Rx release amlodipine 5 mg tablet (Norvasc) 5 mg PO BID #60 tab 02/17/21 07/17/21 Rx atorvastatin 10 mg tablet 10 mg PO QAM 03/11/21 07/17/21 History vitamin B complex-vitamin C-folic 1 tab PO DAILY 03/13/21 07/17/21 History acid 0.8 mg tablet (Renal Vitamin) mirtazapine 15 mg tablet (Remeron) 7.5 mg PO HS tab 03/19/21 07/17/21 History ondansetron HCl 4 mg tablet 8 mg PO Q4 PRN tab 03/19/21 07/17/21 History lorazepam 0.5 mg tablet 0.5 mg PO Q6H PRN #60 tab 03/27/21 07/17/21 Rx insulin aspart U-100 100 unit/mL 5 unit SUBCUT TIDM PRN #15 ml 04/02/21 07/17/21 Rx (3 mL) subcutaneous pen (Novolog Flexpen U-100 Insulin aspart) cholecalciferol (vitamin D3) 50 50 mcg PO DAILY #90 cap 04/12/21 07/17/21 Rx mcg (2,000 unit) capsule (Vitamin D3) bupropion HCl 100 mg tablet,12 hr 100 mg PO DAILY #30 ea 04/24/21 07/17/21 Rx sustained-release sertraline 100 mg tablet 100 mg PO QAM #90 tab 05/13/21 07/17/21 Rx prochlorperazine maleate 5 mg 5 mg PO BID PRN 06/03/21 07/17/21 History tablet (Compazine) losartan 100 mg tablet 100 mg PO QAM #90 tab 06/04/21 07/17/21 Rx pen needle, diabetic 32 gauge x #500 ea 06/13/21 07/03/21 Rx " (BD Ultra-Fine Annalise Pen Needle) insulin glargine 100 unit/mL (3 16 unit SUBCUT QAM 07/17/21 07/17/21 History mL) subcutaneous pen (Basaglar KwikPen U-100 Insulin) Patient History Medical History (Updated 07/18/21 @ 10:58 by Johnson Lazo MD) Anemia of chronic disease Anticoagulated on warfarin Anxiety AV fistula left upper arm CAD (coronary artery disease) mild, non-obstructive CAD per 10/2018 cardiac cath> [facility] Cardiac murmur follows with Dr. Powell Cellulitis of chest wall Chronic pleural effusion PleurX catheter placed 01/24/21; pt reports emptying q2d Cyclical vomiting syndrome Depression Diabetes Diabetic retinopathy Dialysis patient Esophagitis ESRD (end stage renal disease) M,W,F (Follows with Dr. Lor Guadalupe; [facility]) GERD (gastroesophageal reflux disease) History of pulmonary embolism 11/2020; unk etiology; started on warfarin Hypertension Kidney stones assisted (current) use of anticoagulants Lumbar radiculopathy Peripheral neuropathy Pulmonary embolism Recurrent pleural effusion on left Retinopathy due to secondary diabetes Severe protein-calorie malnutrition Surgical History H/O shoulder surgery RIGHT History of appendectomy History of cardiac cath 10/2018= no stents, no obstructive disease (at [facility]) History of cataract surgery History of esophagogastroduodenoscopy (EGD) (~03/08/20) History of hip surgery left HIP ARTHROSCOPY History of lithotripsy History of open reduction and internal fixation (ORIF) procedure right hip Nausea and vomiting after administration of anesthetic agent Permanent central venous catheter in place Permacath has been removed S/P arteriovenous (AV) fistula creation Family History Grandfather Myocardial infarction Grandfather (Maternal) Family history of diabetes mellitus Uncle Myocardial infarction Father Hypertension Mother Kidney stone Other No family history of adverse response to anesthesia Denies family history of Colon cancer Ovarian cancer Prostate cancer Breast cancer Social History Smoking Status: Never smoker Second Hand Exposure: No; Hx Alcohol Use: No Hx Substance Use: No Preferred Language: Tajik Communication Ability: Effective Visual Impairment: No Limitations Hearing Ability: Normal Taker Off Hemp Fiber Required: No Beliefs That Will Affect Care: None marital status: Current Living Situation: Family Current Living Situation Comment: lives with parents. current occupational status: disabled How many Children do You have: 2 Feels Safe at Home: Yes Childhood Exposure to Second-Hand Smoke: Yes Dental Care, Regularly: No Physical Activity Frequency: 1-2 Times per Week Seatbelt Use: always Sunscreen Use: No Assistive Devices: None Review of Systems Review of Systems: All systems reviewed & are unremarkable except as noted in HPI & below Physical Exam Physical Exam: Constitutional: Appears to be in mild distress with pain. Eyes: Pupils are equal round and reactive to light. Conjunctivae are normal. Anicteric sclera. Ears nose, mouth and throat: Face mask in place. Exam deferred. Neck: Trachea is midline. Visual inspection is normal. Respiratory: Clear to auscultation bilaterally. Significant purulence noted around the insertion site of the Pleurx catheter. There is induration. I am able to express a small amount of pus. Cardiovascular: 2 out of 6 systolic flow murmur. No significant edema. Regular rate and rhythm.. Musculoskeletal: No cyanosis. Patient is able to move all extremities. Skin: No rashes, warm dry and intact. Neurologic: No obvious focal neurological deficits seen. Psychiatric: Alert and oriented x3. Results & Data Results & Data ([facility]) Vital Signs (Past 12 Hours) Vital Signs Temp Pulse Resp BP Pulse Ox 07/18/21 08:17 36.4 C L 71 16 136/71 95 07/18/21 02:05 62 16 112/68 96 07/17/21 23:50 62 101/59 L PG Care Time/CCT Total # of Minutes Spent Total Time Spent with Patient: Total time spent is greater than 50% in coordination of care (as documented) at patient's floor/unit and/or counseling patient: Coding Level of Care Code 94223 Inpt Consult Level 4 Diagnoses Cellulitis of chest wall L03.313 Recurrent pleural effusion on left J90
[2021-07-18 11:06] LABS: Estimated Average Glucose 160 mg/dl; Hemoglobin A1C 7.2 % (4.5-5.6)
[2021-07-18] MEDS: ALTEPLASE, RECOMBINANT 10 MG in SYRINGE 50 ML IPL SCH ×2 (12:45→23:10)
--- NOTE | 2021-07-18 12:49 | XRay Report ---
XR chest 1V not portable CLINICAL HISTORY: Left pleurX cathter/effusion COMPARISON STUDY: Chest radiograph July 17, 2021. Chest CT performed earlier today. FINDINGS: Left pleural catheter remains in place. Small left pleural effusion has slightly decreased in size. There is associated left basilar opacity. There is no pneumothorax. Cardiomegaly is again no sami. IMPRESSION: Left basilar pleural catheter in place. Slight decrease in size of a small left pleural effusion. No pneumothorax. ACT 112: Negative or not required by law. Electronically signed by: Gabino Cool M.D. 07/18/2021 12:48 PM
[2021-07-18] MEDS: DORNASE ALFA 5 ML in SYRINGE 25 ML IPL SCH (13:46)
[2021-07-18] MEDS: ONDANSETRON 4 MG OD TAB PO PRN (14:36)
--- NOTE | 2021-07-18 14:39 | Pharmacy Report ---
Pharmacy Abx Dose Short Note - Date of Service July 18, 2021 - Assessment & Plan Assessment * Mr De Los Santos is a 50 year old M receiving Vanc/Zosyn for treatment of infected pleurx catheter/chest wall cellulitis. * Pertinent micro data: Pleural fluid (x2) - Staph sp. * Pulm has been consulted and will attempt to drain pleural effusion before considering removal of catheter. * Patient receives intermittent HD, so vancomycin is being dosed based on random levels. * Vanc level this mornin.1 mcg/mL * Other pertinent PMH: type 1 DM, ESRD on HD, gastroparesis, chronic DM ulcer R foot Plan Vancomycin * Random level indicated re-dose * Vancomycin 500mg IV x1 dose this morning * Goal trough level for pulm infxn: 15 to 20 mcg/mL * Random level ordered for: tomorrow w/ am labs. * Anticipate that pt will receive HD tomorrow and will plan to give another small dose of vanc post-HD. Zosyn 3.375gm IV x1, then 3.375gm IV q12h Pharmacy will continue to follow and will adjust dose/frequency as necessary. Thank you.
--- NOTE | 2021-07-18 15:04 | Consultation Report ---
NEPHROLOGY CONSULTATION NOTE DATE OF SERVICE: 07/18/2021. REASON FOR CONSULTATION: Dialysis patient admitted with pain and discharge around his left PleurX ca theter site and shortness of breath. HISTORY OF PRESENT ILLNESS: The patient is a 50-year-old male with longstanding type 1 diabetes with all the complications of that including ESRD on chronic hemodialysis Thursday, Thursday, Thursday throu gh his AV fistula. He has had issues with recurrent pleural effusion in the past requiring multiple thoracocentesis but at this time, he has a PleurX catheter in the left chest. He was complaining of increasing discharge around his catheter site as well as some pain and shortness of breath. The murtaza ent has been admitted by pulmonary for IV antibiotics for possible empyema. He had his dialysis yest erday, but was shortened because of needle infiltration during dialysis. He is currently on room air and does not appear to be in any shortness of breath. Blood work done earlier did not show any cesia re electrolyte imbalance. PAST MEDICAL AND SURGICAL HISTORY: Includes longstanding diabetes with all the complications of diab etes including retinopathy, severe neuropathy, gastroparesis, end-stage renal disease on hemodialysis Thursday, Thursday, Thursday; history of pulmonary embolism, kidney stones, hypertension, severe gastro paresis requiring numerous hospital admissions, coronary artery disease, chronic Coumadin, anxiety, m ultiple orthopedic surgeries, AV fistula creation. FAMILY HISTORY: Negative for renal disease or dialysis. There are multiple members with diabetes. SOCIAL HISTORY: Never smoked. He is , currently lives with his parents. He is disabled. N o smoking. No alcohol. REVIEW OF SYSTEMS: Besides what is listed in HPI, 10 systems reviewed and is negative. ALLERGIES: List reviewed and is as per the H and P and reconciliation list. MEDICATIONS: Home medication list was reviewed in detail and is as per the H and P and reconciliatio n list. PHYSICAL EXAMINATION: GENERAL: A middle-aged white male who appears comfortable at this time. He is not in any respirator y distress. He is awake, alert, oriented x3. HEENT: Mucous membranes are moist. NECK: Supple. No jugular venous distention. CHEST: Decreased breath sound in the left with occasional crackles. CARDIOVASCULAR: S1 and S2, regular. Systolic murmur heard. ABDOMEN: Soft, nontender. EXTREMITIES: Show no edema. NEUROLOGIC: Awake, alert, oriented x3. VITAL SIGNS: Show blood pressure of 136/71, pulse rate 71, temperature 36.4 degrees Celsius, 95% on room air. LABORATORY TEST: Chest x-ray done today shows left basilar pleural catheter in place. Slight decrea se in size of the pleural effusion. No pneumothorax. CT chest done today was also reviewed and show s a 5 mm indeterminate pulmonary nodule within the left lower lobe. Blood work shows sodium 132, pot assium 5.0, BUN 63, creatinine 8.5, hemoglobin 10, WBC count 10 and platelet count 362. ASSESSMENT AND PLAN: A 50-year-old male with longstanding diabetes with endstage renal disease on [facility] hemodialysis Thursday, Thursday, Thursday, now admitted with complications of the PleurX catheter. Endstage renal disease, he had dialysis yesterday, but was shortened because of needle infiltration. At this point, based on the nurse's scheduling and dialysis patient case load, we will do dialysis m ost likely tomorrow. We will do him for 3 hours 30 minutes on a 2K bath and take about 3 kilos off. We will not use heparin given the issue with PleurX catheter. Job ID: [id number]
[2021-07-18] MEDS: MIRTAZAPINE TAB 15 MG TAB PO SCH (19:56)
[2021-07-18] MEDS: QUEtiapine FUMARATE 25 MG TABLET PO SCH (19:57)
[2021-07-18] MEDS: MELATONIN 3 MG TAB PO SCH (19:58)
--- NOTE | 2021-07-18 21:39 | XRay Report ---
XR chest 1V portable at 5:35 PM CLINICAL HISTORY: s/p drainage. Left pleural effusion with left pleural catheter COMPARISON STUDY: 07/18/2021 at 10:59 AM TECHNIQUE: 1 view of the chest FINDINGS: Single frontal view of the chest demonstrates the cardiomediastinal silhouette to be within normal li mits. The lungs are clear of alveolar opacities. Compared to previous examination, there is again a s mall left pleural effusion with left-sided chest tube in place. The effusion appears smaller than on the previous study. There is no evidence for pneumothorax. There is no evidence for vascular congesti on. There is no acute osseous pathology. IMPRESSION: Evidence for decreased left pleural effusion with no evidence for pneumothorax. Otherwise , no acute chest disease. ACT 112: Negative or not required by law. Electronically signed by: Luke Conroy M.D. 07/18/2021 9:38 PM
[2021-07-19] MEDS: DORNASE ALFA 5 ML in SYRINGE 25 ML IPL SCH ×2 (00:46→18:42)
[2021-07-19] MEDS: PIPERACILLIN/TAZOBACTAM 3.375 GM in DEXTROSE 5% 100 ML IV SCH (02:02)
[2021-07-19] MEDS: HYDROmorphone INJ 0.5 MG/0.5 ML SYR IV PRN ×3 (02:25→18:53)
[2021-07-19 06:46] LABS: Basophils # (auto) 0.03 K/uL (0-0.2); Basophils % (auto) 0.2 %; Eosinophils # (auto) 0.02 K/uL (0-0.5); Eosinophils % (auto) 0.1 %; Hemoglobin 10.7 g/dL (14.0-18.0); Immature Granulocytes # (auto) 0.11 K/uL (0.00-0.02); Immature Granulocytes % (auto) 0.7 %; Lymphocytes # (auto) 0.92 K/uL (1.2-3.4); Mean Corpuscular Hemoglobin 31.9 pg (25-34); Mean Corpuscular Hgb Conc 31.5 g/dL (32-36); Mean Corpuscular Volume 101.5 fL (80-100); Mean Platelet Volume 8.7 fL (7.4-10.4); Monocytes # (auto) 1.47 K/uL (0.11-0.59); Monocytes % (auto) 9.6 %; Neutrophils # (auto) 12.74 K/uL (1.4-6.5); Neutrophils % (auto) 83.4 %; Platelet Count 453 K/uL (130-400); RDW Coefficient of Variation 12.8 % (11.5-14.5); Red Blood Count 3.35 M/uL (4.7-6.1); White Blood Count 15.29 K/uL (4.8-10.8)
[2021-07-19] MEDS ORDERED: EPOETIN ALFA 4,000 UNIT/ML VIAL IV ONE (07:00)
[2021-07-19] MEDS ORDERED: SODIUM CHLORIDE 0.9% 1000ML 1,000 ML IV PRN (07:00)
[2021-07-19 07:17] LABS: Albumin Globulin Ratio 1.1 (0.9-2); Albumin Level 3.3 gm/dl (3.4-5.0); BUN Creatinine Ratio 7.6 (10-20); Bilirubin,Total 0.6 mg/dl (0.2-1.0); Calcium 7.6 mg/dl (8.5-10.1); Creatinine Clr Calc Pharmacy 8.6 ml/min; Est GFR (Non-African American) 5.2 ml/min; Globulin 3.1 gm/dl (2.5-4.0); Magnesium 2.4 mg/dl (1.7-2.4); Total Protein 6.4 gm/dl (6.0-8.3)
[2021-07-19] MEDS ORDERED: PATIROMER CALCIUM SORBITEX 8.4 GM PACK PO ONE (08:38)
--- NOTE | 2021-07-19 08:41 | Hospitalist Progress Note ---
Date of Service July 19, 2021 Assessment & Plan (1) Pleural effusion: Plan: Patient has a left-sided Pleurx catheter that was placed in January [address] Lazo. Seen in clinic 07/17/21 for concerns for infection, draining 2-300ml brown colored pleural fluid Q2-3 days compared to prior 100cc clearer fluid Pleural fluid most likely secondary to end-stage renal disease initially, however does appear to have component of infection currently 2nd to PleurX Pulmonary on consult -- appreciate management of PleurX. MIST II protocol initiated 07/18, tolerated well, bloody drainage noted. 1004mL drained overnight --> able to continue after HD today per pulm as to go up for treatment now CXR with improvement Continued on Vanco/Zosyn WBC 12.9k--> 10k --> 15k today, but dry heaving/could be reactive. Afebrile MRSA nasal negative -- consider dc vanco but would continue until cx final Monitor Bcx -- NGTD Pleural cx -- staph species --> monitor cx from office as well as most recent actually surface culture per pulmonary Per pulm, if no significant improvement/clinical deterioration, will plan to remove catheter Patient may also benefit from transfer to tertiary care facility for definitive treatment with VATS procedure -- case previously discussed by pulm with [place] [facility] regarding care and they rec'd broad spectrum abx and drainage of catheter. 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 no n/v at this time No current complaints We will continue to monitor (4) ESRD (end stage renal disease): Plan: Hemodialysis Wednesdays and Fridays Partial treatment this morning Nephrology is consulted Anticipate dialysis while inpatient -- had 1/2 session 07/17, and per nephrology plans for 3.5hr HD for 07/19. Not to give heparin given PleurX cateter K 6.0 today -- ordered valtessa x 1 but to have HD --> monitor BMP in AM Anion gap metabolic acidosis from renal disease and infection as above Monitor BMP (5) Anemia of chronic disease: Plan: Not on any iron supplements Hemoglobin 10.7 Baseline hemoglobin between 11 and 12 g/Darrel, hgb 10 on AM, had been having increased darkened/bloody drainage SHELL FISHERMAN from pleurx --> procrit prior to HD CBC in AM (6) CAD (coronary artery disease): Plan: underwent cardiac cath October 2018 which did not show any obstructive artery disease Continue antihypertensives including amlodipine, carvedilol, and losartan --> changed amlodipine to 10mg daily as last prescribed by nephrology. had been 5mg BID prior continue statin not on ASA as per Cardio recommendation from 10/2018 Vital signs per protocol Completed 6 months coumadin for hx PE/DVT, finished in May. (7) Diabetic gastroparesis: Plan: No motility agents for home regimen No current complaints of nausea or vomiting Continue home antiemetics and provide supportive care +BM 07/18, none today. +BS but slightly hypoactive but reports passing gas (8) GERD (gastroesophageal reflux disease): Plan: Continue pantoprazole 40 mg p.o. twice daily (9) Diabetic ulcer of right foot: Plan: Wound nurse consult requested Patient follows with the outpatient wound care clinic and was last seen 07/05/2021 (10) Depression: Plan: Continue Wellbutrin and lorazepam Seroquel 25 mg at bedtime (11) DVT prophylaxis: Plan: Patient currently is not on any home anticoagulation -- We will hold on chemical prophylaxis at this time pending further evaluation of Pleurx catheter SCDs as well as NELLIE sanders ordered Admission and Anticipated Discharge Date Admission Date: July 17, 2021 Supervising Physician Co-Signing Physician Notes PA Supervision Note: I did not personally see or examine the patient today, but I verified all julien points of CAROL Medina's assessment and plan with the following exceptions/additions: None Subjective patient evaluated this morning had some nausea/dry heaving earlier this morning and felt a little clammy, got dose of Compazine which he states is helping but still having occasional dry heaves pain he rates is present, still at site of catheter, tolerable with Dilaudid 0.25mg would like dose now prior to being taken up to HD, seen by nephrology this morning no fever, chills. +BM yesterday and states that is normal for him and no issues/need for motility agent at this time but will let us know if he needs anything tolerated MIST II protocol last evening, bloody drainage noted, but tolerated ok. CXR with improvement this morning cultures still pending -- staph aureus, blood cultures NGTD. Review of Systems Review of Systems: All systems reviewed & are unremarkable except as noted in HPI & below Physical Exam Physical Exam: Constitutional: WD male sitting up in bed, mild distress/dry heaving Eyes: pupils equal/reactive to light Trachea midline without deviation, mm slightly dry Recp: scant purulent material draining around Pleurex, now covered with Aquacel/Optifoam with induration. tender to palpation. CTAB with exception of crackles L lung base (decreased) CV: RRR, +systolic murmur, no LE edema, L ARM +AV fistula with +thrill GI: +BS but slightly hypoactive upper quadrants, distended, non-tender, no guarding/rigidity. glucose monitor R abdomen MSK/Neuro: moves all extremities, no facial droop/slurred speech, no focal deficit Skin: warm, dry, dried ulcer to dorsal distal aspect R foot Results & Data Results & Data ([facility]) Vital Signs (Past 12 Hours) Vital Signs Temp Pulse Resp BP Pulse Ox 07/19/21 06:46 36.6 C 74 16 166/72 H 96 07/19/21 02:31 36.6 C 71 16 114/65 93 07/18/21 22:21 36.6 C 65 18 91/50 L 93 Laboratory Results 07/19/21 07/19/21 07/19/21 Range/Units 08:08 06:05 06:05 WBC 15.29 H (4.8-10.8) K/uL RBC 3.35 L (4.7-6.1) M/uL Hgb 10.7 L (14.0-18.0) g/dL Hct 34.0 L (42-52) % MCV 101.5 H (80-100) fL MCH 31.9 (25-34) pg MCHC 31.5 L (32-36) g/dL RDW Std Deviation 48.0 H (36.4-46.3) fL RDW Coeff of Kami 12.8 (11.5-14.5) % Plt Count 453 H (130-400) K/uL MPV 8.7 (7.4-10.4) fL Immature Gran % (Auto) 0.7 % Neut % (Auto) 83.4 % Lymph % (Auto) 6.0 % [place] % (Auto) 9.6 % Eos % (Auto) 0.1 % Baso % (Auto) 0.2 % Neut # (Auto) 12.74 H (1.4-6.5) K/uL Lymph # (Auto) 0.92 L (1.2-3.4) K/uL [place] # (Auto) 1.47 H (0.11-0.59) K/uL Eos # (Auto) 0.02 (0-0.5) K/uL Baso # (Auto) 0.03 (0-0.2) K/uL Immature Gran # (Auto) 0.11 H (0.00-0.02) K/uL Sodium 134 L (136-145) mmol/L Potassium 6.0 H (3.5-5.1) mmol/L Chloride 94 L (98-107) mmol/L Carbon Dioxide 22 (21-32) mmol/L Anion Gap 18 H (3-11) BUN 78 H (6-23) mg/dl Creatinine 10.29 H* D (0.6-1.4) mg/dl Est Cr Clr Drug Dosing 8.6 ml/min Est GFR ( Amer) 6.0 ml/min Est GFR (Non-Af Amer) 5.2 ml/min BUN/Creatinine Ratio 7.6 L (10-20) Glucose 134 H (70-99(Fasting)) mg/dl POC Glucose 136 H (70-99) mg/dl Estimat Average Glucose mg/dl Hemoglobin A1c (4.5-5.6) % Calcium 7.6 L (8.5-10.1) mg/dl Magnesium 2.4 (1.7-2.4) mg/dl Total Bilirubin 0.6 (0.2-1.0) mg/dl AST 7 L (13-39) U/L ALT 10 (7-52) U/L Alkaline Phosphatase 66 (34-104) U/L Total Protein 6.4 (6.0-8.3) gm/dl Albumin 3.3 L (3.4-5.0) gm/dl Globulin 3.1 (2.5-4.0) gm/dl Albumin/Globulin Ratio 1.1 (0.9-2) Vitamin B12 (211-911) pg/ml Folate (>5.38) ng/ml Nasal Screen MRSA (PCR) (Negative) Random Vancomycin (10-20) mcg/ml 07/19/21 07/18/21 07/18/21 Range/Units 06:05 20:46 17:08 WBC (4.8-10.8) K/uL RBC (4.7-6.1) M/uL Hgb (14.0-18.0) g/dL Hct (42-52) % MCV (80-100) fL MCH (25-34) pg MCHC (32-36) g/dL RDW Std Deviation (36.4-46.3) fL RDW Coeff of Kami (11.5-14.5) % Plt Count (130-400) K/uL MPV (7.4-10.4) fL Immature Gran % (Auto) % Neut % (Auto) % Lymph % (Auto) % [place] % (Auto) % Eos % (Auto) % Baso % (Auto) % Neut # (Auto) (1.4-6.5) K/uL Lymph # (Auto) (1.2-3.4) K/uL [place] # (Auto) (0.11-0.59) K/uL Eos # (Auto) (0-0.5) K/uL Baso # (Auto) (0-0.2) K/uL Immature Gran # (Auto) (0.00-0.02) K/uL Sodium (136-145) mmol/L Potassium (3.5-5.1) mmol/L Chloride (98-107) mmol/L Carbon Dioxide (21-32) mmol/L Anion Gap (3-11) BUN (6-23) mg/dl Creatinine (0.6-1.4) mg/dl Est Cr Clr Drug Dosing ml/min Est GFR ( Amer) ml/min Est GFR (Non-Af Amer) ml/min BUN/Creatinine Ratio (10-20) Glucose (70-99(Fasting)) mg/dl POC Glucose 126 H 127 H (70-99) mg/dl Estimat Average Glucose mg/dl Hemoglobin A1c (4.5-5.6) % Calcium (8.5-10.1) mg/dl Magnesium (1.7-2.4) mg/dl Total Bilirubin (0.2-1.0) mg/dl AST (13-39) U/L ALT (7-52) U/L Alkaline Phosphatase (34-104) U/L Total Protein (6.0-8.3) gm/dl Albumin (3.4-5.0) gm/dl Globulin (2.5-4.0) gm/dl Albumin/Globulin Ratio (0.9-2) Vitamin B12 (211-911) pg/ml Folate (>5.38) ng/ml Nasal Screen MRSA (PCR) (Negative) Random Vancomycin 19.4 (10-20) mcg/ml 07/18/21 07/18/21 07/18/21 Range/Units 11:54 09:27 08:20 WBC (4.8-10.8) K/uL RBC (4.7-6.1) M/uL Hgb (14.0-18.0) g/dL Hct (42-52) % MCV (80-100) fL MCH (25-34) pg MCHC (32-36) g/dL RDW Std Deviation (36.4-46.3) fL RDW Coeff of Kami (11.5-14.5) % Plt Count (130-400) K/uL MPV (7.4-10.4) fL Immature Gran % (Auto) % Neut % (Auto) % Lymph % (Auto) % [place] % (Auto) % Eos % (Auto) % Baso % (Auto) % Neut # (Auto) (1.4-6.5) K/uL Lymph # (Auto) (1.2-3.4) K/uL [place] # (Auto) (0.11-0.59) K/uL Eos # (Auto) (0-0.5) K/uL Baso # (Auto) (0-0.2) K/uL Immature Gran # (Auto) (0.00-0.02) K/uL Sodium (136-145) mmol/L Potassium (3.5-5.1) mmol/L Chloride (98-107) mmol/L Carbon Dioxide (21-32) mmol/L Anion Gap (3-11) BUN (6-23) mg/dl Creatinine (0.6-1.4) mg/dl Est Cr Clr Drug Dosing ml/min Est GFR ( Amer) ml/min Est GFR (Non-Af Amer) ml/min BUN/Creatinine Ratio (10-20) Glucose (70-99(Fasting)) mg/dl POC Glucose 143 H (70-99) mg/dl Estimat Average Glucose mg/dl Hemoglobin A1c (4.5-5.6) % Calcium (8.5-10.1) mg/dl Magnesium (1.7-2.4) mg/dl Total Bilirubin (0.2-1.0) mg/dl AST (13-39) U/L ALT (7-52) U/L Alkaline Phosphatase (34-104) U/L Total Protein (6.0-8.3) gm/dl Albumin (3.4-5.0) gm/dl Globulin (2.5-4.0) gm/dl Albumin/Globulin Ratio (0.9-2) Vitamin B12 499 (211-911) pg/ml Folate > 22.30 (>5.38) ng/ml Nasal Screen MRSA (PCR) Negative (Negative) Random Vancomycin (10-20) mcg/ml 07/18/21 07/18/21 Range/Units 07:17 07:17 WBC (4.8-10.8) K/uL RBC (4.7-6.1) M/uL Hgb (14.0-18.0) g/dL Hct (42-52) % MCV (80-100) fL MCH (25-34) pg MCHC (32-36) g/dL RDW Std Deviation (36.4-46.3) fL RDW Coeff of Kami (11.5-14.5) % Plt Count (130-400) K/uL MPV (7.4-10.4) fL Immature Gran % (Auto) % Neut % (Auto) % Lymph % (Auto) % [place] % (Auto) % Eos % (Auto) % Baso % (Auto) % Neut # (Auto) (1.4-6.5) K/uL Lymph # (Auto) (1.2-3.4) K/uL [place] # (Auto) (0.11-0.59) K/uL Eos # (Auto) (0-0.5) K/uL Baso # (Auto) (0-0.2) K/uL Immature Gran # (Auto) (0.00-0.02) K/uL Sodium (136-145) mmol/L Potassium (3.5-5.1) mmol/L Chloride (98-107) mmol/L Carbon Dioxide (21-32) mmol/L Anion Gap (3-11) BUN (6-23) mg/dl Creatinine (0.6-1.4) mg/dl Est Cr Clr Drug Dosing ml/min Est GFR ( Amer) ml/min Est GFR (Non-Af Amer) ml/min BUN/Creatinine Ratio (10-20) Glucose (70-99(Fasting)) mg/dl POC Glucose (70-99) mg/dl Estimat Average Glucose 160 mg/dl Hemoglobin A1c 7.2 H (4.5-5.6) % Calcium (8.5-10.1) mg/dl Magnesium (1.7-2.4) mg/dl Total Bilirubin (0.2-1.0) mg/dl AST (13-39) U/L ALT (7-52) U/L Alkaline Phosphatase (34-104) U/L Total Protein (6.0-8.3) gm/dl Albumin (3.4-5.0) gm/dl Globulin (2.5-4.0) gm/dl Albumin/Globulin Ratio (0.9-2) Vitamin B12 (211-911) pg/ml Folate (>5.38) ng/ml Nasal Screen MRSA (PCR) (Negative) Random Vancomycin 14.1 (10-20) mcg/ml PG Care Time/CCT Total # of Minutes Spent Total Time Spent with Patient: Total time spent is greater than 50% in coordination of care (as documented) at patient's floor/unit and/or counseling patient: Coding Level of Care Code 74371 Subseq Hosp Care Lvl 3 Diagnoses Pleural effusion J90 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 transplanted heart: [place] heart Diabetic gastroparesis E11.43; K31.84 GERD (gastroesophageal reflux disease) K21.9 Diabetic ulcer of right foot E11.621; L97.519 Depression F33.9 Active/Remission status: remission status unspecified Depression Type: major depressive disorder Major depression recurrence: recurrent DVT prophylaxis Z29.9 (1) CAD (coronary artery disease) Associated angina: without angina Coronary Disease-Associated Artery/Lesion type: [place] artery [place] vs. transplanted heart: [place] heart Qualified Code(s): I25.10 - Atherosclerotic heart disease of [place] coronary artery with out angina pectoris (2) Depression Active/Remission status: remission status unspecified Depression Type: major depressive disorder Major depression recurrence: recurrent Qualified Code(s): F33.9 - Major depressive disorder, recurrent, unspecified
[2021-07-19] MEDS: PROCHLORPERAZINE MALEATE 5 MG TAB PO PRN (08:57)
[2021-07-19] MEDS: INSULIN ASPART PER UNIT SC SCH ×4 (09:00→20:53)
--- NOTE | 2021-07-19 09:00 | Pharmacy Report ---
Pharmacy Glycemic Short Note 2 - Date of Service July 19, 2021 - Glycemic Short BSG Results (Last 24 hours): 07/18/21 07/18/21 07/18/21 11:54 17:08 20:46 Glucose POC Glucose 143 H 127 H 126 H 07/19/21 07/19/21 06:05 08:08 Glucose 134 H POC Glucose 136 H OUTPATIENT ANTIDIABETIC REGIMEN: * Basaglar 16 units SQ AM * NovoLog TIDM, CF 45, CR 10, about 30 units/day ASSESSMENT: 07/19/21 * Patient's BSGs yesterday were 700-079-767-126 mg/dL. Patient received 13 units of insulin yesterday (12 units of basal and 1 unit of bolus). * Fasting today is 136 mg/dL. * Continue current regimen. Consideration to switch to NPH if BSGs become uncontrolled. Background * 50 year old male admitted with possible infected Pleur-X catheter, started on IV Vanc + Zosyn. * Type 1 diabetic, ESRD on HD MWF, known to pharmacy glycemic service. Started on Lantus + NovoLog on admission, have had good glycemic control on regular + NPH insulin in the past while inpatient, will consider switch to those if inadequate control. * Begin with reduced home dose of basal, BSG on admission 57mg/dl. PLAN FOR INPATIENT GLYCEMIC CONTROL: * Hold outpatient oral diabetes medications * Basal insulin * Lantus 12 units SQ daily * Bolus insulin * NovoLog per scale ACHS or Q6hrs while NPO * Goal Range: Low 110 mg/dL - High 160 mg/dL - for type 1 DM on HD * Correction Factor: 35 mg/dL/unit * Nutritional / Prandial insulin per carb ratio of 1 unit per 10 grams CHO consumed PLAN FOR DISCHARGE: * Patient's A1c = 7.1% 05/07/21, new A1c pending * However, this result is likely somewhat unreliable in ESRD patients d/t interactions between the A1c analyzing technique and high levels of urea in ESRD, reduced RBC life span, iron deficiency anemia, and EPO administration. * Continue home regimen and adjust based on SMBG.
[2021-07-19] MEDS: INSULIN GLARGINE SOLOSTAR 100 UNITS/ML 3 ML PEN SQ SCH (09:04)
--- NOTE | 2021-07-19 09:50 | XRay Report ---
XR chest 1V portable CLINICAL HISTORY: Follow up left pleural effusion and left-sided chest tube. COMPARISON STUDY: 07/18/2021 TECHNIQUE: 1 view of the chest FINDINGS: Single frontal view of the chest demonstrates the cardiomediastinal silhouette to be within normal li mits. Compared to previous examination, there is small residual left pleural effusion is again seen a long with chest tube in the left lung base. There is again no evidence for pneumothorax. The lungs ar e clear of alveolar opacities. There is no evidence for right pleural effusion. There is no evidence for vascular congestion. There is no acute osseous pathology. IMPRESSION: No change in very small left pleural effusion with no evidence for pneumothorax. Left-keya ed chest tube is again seen at the lung bases. ACT 112: Negative or not required by law. Electronically signed by: Luke Conroy M.D. 07/19/2021 9:48 AM
--- NOTE | 2021-07-19 13:33 | Nephrology Progress Note ---
Date of Service July 19, 2021 Assessment & Plan Admission and Anticipated Discharge Date Admission Date: July 17, 2021 Subjective S---Has Chonic Nausea and vomiting. PHYSICAL EXAMINATION: GENERAL: A middle-aged white male who appears comfortable at this time. He is not in any respiratory distress. He is awake, alert, oriented x3. HEENT: Mucous membranes are moist. NECK: Supple. No jugular venous distention. CHEST: Decreased breath sound in the left with occasional crackles. CARDIOVASCULAR: S1 and S2, regular. Systolic murmur heard. ABDOMEN: Soft, nontender. EXTREMITIES: Show no edema. NEUROLOGIC: Awake, alert, oriented x3. LABORATORY TEST: reviewed in detail ASSESSMENT AND PLAN: A 50-year-old male with longstanding diabetes with endstage renal disease on chronic hemodialysis Thursday, Thursday, Thursday, now admitted with complications of the PleurX catheter. Endstage renal disease, will get dialysis later today--3hr 30 min 2 k bath and take 2.5 to 3 kilo off. We will not use heparin given the issue with PleurX catheter. Results & Data ([facility]) Vital Signs (Past 12 Hours) Vital Signs Temp Pulse Pulse Resp BP BP Pulse Ox 07/19/21 12:04 71 88/49 L 07/19/21 12:00 73 71/46 L 07/19/21 11:40 72 90/52 L 07/19/21 11:20 71 101/57 L 07/19/21 11:11 68 117/35 L 07/19/21 10:49 36.3 C L 71 07/19/21 06:46 36.6 C 74 16 166/72 H 96 07/19/21 02:31 36.6 C 71 16 114/65 93
[2021-07-19] MEDS: carvediloL 25 MG TAB PO SCH ×2 (15:38→17:30)
[2021-07-19] MEDS: PANTOprazole 40 MG TAB PO SCH ×2 (15:38→20:54)
[2021-07-19] MEDS: NEPHROCAPS PO SCH (15:39)
[2021-07-19] MEDS: SERTRALINE HCL 100 MG TABLET PO SCH (15:39)
[2021-07-19] MEDS: buPROPion SR 100 MG TABCR PO SCH (15:40)
[2021-07-19] MEDS: ATORVASTATIN 10 MG TAB PO SCH (15:40)
[2021-07-19] MEDS: LOSARTAN POTASSIUM 50 MG TAB PO SCH (15:41)
[2021-07-19] MEDS: amLODIPine BESYLATE 5 MG TAB PO SCH (15:41)
--- NOTE | 2021-07-19 16:43 | Pulmonology Progress Note ---
Date of Service July 19, 2021 Assessment & Plan (1) Cellulitis of chest wall: (2) Recurrent pleural effusion on left: Plan: Patient appears to be responding well to IV antibiotics. Cultures positive for MSSA. Unclear whether this represents an empyema versus a biofilm that has developed on the Pleurx catheter itself. He does not appear septic at this time. Continue TPA/dornase installation twice daily for total of 3 days. We will consider removing the catheter once MIST2 protocol is complete. Wound consult placed and appreciate their input. He may require definitive VATS procedure to help prevent reoccurrence of pleural effusion. MSSA growing from the pleural fluid and Pleurx catheter insertion site. Antibiotics changed to IV cefazolin. Thank you for the consult. We will continue to follow with you. Admission and Anticipated Discharge Date Admission Date: July 17, 2021 Subjective Patient seen and examined after his dialysis session. He still has some pain around the Pleurx catheter insertion site, but the pain has improved. Denies any shortness of breath. No fevers or chills. Review of Systems Review of Systems: All systems reviewed & are unremarkable except as noted in HPI & below Physical Exam Physical Exam: Constitutional: Appears to be in mild distress with pain. Eyes: Pupils are equal round and reactive to light. Conjunctivae are normal. Anicteric sclera. Ears nose, mouth and throat: Face mask in place. Exam deferred. Neck: Trachea is midline. Visual inspection is normal. Respiratory: Clear to auscultation bilaterally. Pleurx catheter insertion site appears moderately inflamed with granulation tissue. No further pus seen. Cardiovascular: 2 out of 6 systolic flow murmur. No significant edema. Regular rate and rhythm.. Musculoskeletal: No cyanosis. Patient is able to move all extremities. Skin: No rashes, warm dry and intact. Neurologic: No obvious focal neurological deficits seen. Psychiatric: Alert and oriented x3. Results & Data Results & Data ([facility]) Vital Signs (Past 12 Hours) Vital Signs Temp Pulse Pulse Resp BP BP Pulse Ox 07/19/21 15:35 36.7 C 81 18 125/67 95 07/19/21 14:45 36.7 C 82 133/64 07/19/21 14:30 78 111/58 L 07/19/21 14:15 76 114/55 L 07/19/21 14:00 76 102/55 L 07/19/21 13:45 75 111/49 L 07/19/21 13:30 73 108/49 L 07/19/21 13:15 73 102/50 L 07/19/21 13:00 73 102/53 L 07/19/21 12:45 71 88/50 L 07/19/21 12:30 70 84/45 L 07/19/21 12:15 69 84/47 L 07/19/21 12:04 71 88/49 L 07/19/21 12:00 73 71/46 L 07/19/21 11:40 72 90/52 L 07/19/21 11:20 71 101/57 L 07/19/21 11:11 68 117/35 L 07/19/21 10:49 36.3 C L 71 07/19/21 06:46 36.6 C 74 16 166/72 H 96 PG Care Time/CCT Total # of Minutes Spent Total Time Spent with Patient: Total time spent is greater than 50% in coordination of care (as documented) at patient's floor/unit and/or counseling patient: Coding Level of Care Code 61179 Subseq Hosp Care Lvl 2 Diagnoses Cellulitis of chest wall L03.313 Recurrent pleural effusion on left J90
[2021-07-19] MEDS: ALTEPLASE, RECOMBINANT 10 MG in SYRINGE 50 ML IPL SCH (17:08)
[2021-07-19] MEDS: ceFAZolin 1000MG 1,000 MG/7.5 ML SYR IV SCH (19:42)
[2021-07-19] MEDS: MIRTAZAPINE TAB 15 MG TAB PO SCH (20:54)
[2021-07-19] MEDS: QUEtiapine FUMARATE 25 MG TABLET PO SCH (20:54)
[2021-07-19] MEDS: MELATONIN 3 MG TAB PO SCH (20:55)
[2021-07-20 07:10] LABS: Hematocrit (blood only) 31.5 % (42-52); Hemoglobin 10.3 g/dL (14.0-18.0); Mean Corpuscular Hemoglobin 33.2 pg (25-34); Mean Corpuscular Hgb Conc 32.7 g/dL (32-36); Mean Corpuscular Volume 101.6 fL (80-100); Mean Platelet Volume 8.8 fL (7.4-10.4); Platelet Count 444 K/uL (130-400); RDW Coefficient of Variation 13.2 % (11.5-14.5); RDW Standard Deviation 49.1 fL (36.4-46.3); White Blood Count 10.77 K/uL (4.8-10.8)
--- NOTE | 2021-07-20 07:45 | XRay Report ---
XR chest 1V portable HISTORY: Follow up pleural effusion COMPARISON: Chest 07/19/2021. FINDINGS: No pneumothorax. The heart remains enlarged. Left basilar pleural catheter is unchanged in position. Small left pleural effusion and left base airspace opacity has slightly progressed. The rig ht lung is clear. IMPRESSION: Slight progression of the small left pleural effusion and left basilar airspace opacity. The left ple ural catheter is unchanged in position. ACT 112: Negative or not required by law. Electronically signed by: Cristiano Brown M.D. 07/20/2021 7:44 AM
[2021-07-20 07:47] LABS: Calcium 7.8 mg/dl (8.5-10.1); Creatinine Clr Calc Pharmacy 12.9 ml/min; Est GFR (Non-African American) 8.6 ml/min; Potassium 4.5 mmol/L (3.5-5.1)
--- NOTE | 2021-07-20 08:25 | Hospitalist Progress Note ---
Date of Service July 20, 2021 Assessment & Plan (1) Pleural effusion: Plan: Patient has a left-sided Pleurx catheter that was placed in January [address] Lazo for recurrent effusion, 2nd to ESRD initially, but now with possible loculated infection vs biofilm for current PleurX Seen in clinic 07/17/21 for concerns for infection, draining 2-300ml brown colored pleural fluid Q2-3 days compared to prior 100cc clearer fluid Pulmonary on consult -- appreciate management of PleurX. * MIST II protocol initiated 07/18, tolerated well, bloody drainage noted. 650 output 07/18, 1060cc total 07/19 BLOODY * Continues on MIST II protocol CXR Slight progression of the small left pleural effusion and left basilar airspace opacity. The left pleural catheter is unchanged in position. --> additional 325mL serosanguineous appearing fluid evacuated by pulm this morning Vanco/Zosyn switched to Ancef 07/19 given staph aureus on pleural fluid cx, pansensitive Blood cultures remain NGTD -- follow Afebrile WBC 15.2--> 10.7k on AM labs hgb 10.3 on AM labs --> repeated given bloody drainage, stable at 9.9 and will monitor repeat drain output Continued management of PleurX/exchange per pulmonary Per pulm, if no significant improvement/clinical deterioration, will plan to remove catheter Patient may also benefit from transfer to tertiary care facility for definitive treatment with VATS procedure -- case previously discussed by pulm with [place] [facility] regarding care and they rec'd broad spectrum abx and drainage of catheter. If no improvement, can consider transfer. Pulm prev spoke with Dr. 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, with long-term current use of insulin: Plan: Continue with insulin at this time Hemoglobin A1c 7.2 Pharmacy on consult for glycemic management (3) Cyclic vomiting syndrome: Plan: Continue with antiemetics prn Dry heaving yesterday, improvement in afternoon after HD and holding evening BP medications We will continue to monitor (4) ESRD (end stage renal disease): Plan: HD M/W/F Partial treatment AM 07/17, HD 07/19 for 1L along with dose of EPO Nephrology on consult --> plans for next HD alvaro if inpatient vs at dialysis center if discharged K 6.0 on 07/19, got HD, also given dose of parotimer x 1 07/19 after HD. K4.5 Anion gap metabolic acidosis from renal disease and infection as above Monitor BMP (5) Anemia of chronic disease: Plan: Not on any iron supplements Hemoglobin 10.3 Baseline hemoglobin between 11 and 12 g/Darrel, hgb 10 on AM, had been having increased darkened/bloody drainage STEREOPTICIAN from pleurx --> procrit prior to HD 07/19 Follow CBC for above (6) CAD (coronary artery disease): Plan: underwent cardiac cath October 2018 which did not show any obstructive artery disease Continue antihypertensives including amlodipine, carvedilol, and losartan --> changed amlodipine to 10mg daily as last prescribed by nephrology. had been 5mg BID on admission (confirmed with patient he was taking 10mg daily) --> holding AM amlodipine given low BPs yesterday and patient stating not feeling well, as BPs improved after HD looking and feeling much improved. Will continue to monitor BP and resume later today if needed but hold for now and continue his carvedilol and losartan continue statin not on ASA as per Cardio recommendation from 10/2018 Vital signs per protocol Completed 6 months coumadin for hx PE/DVT, finished in May. (7) Diabetic gastroparesis: Plan: No motility agents for home regimen No current complaints of nausea or vomiting Continue home antiemetics and provide supportive care +BM 07/18, 07/19 monitor (8) GERD (gastroesophageal reflux disease): Plan: Continue pantoprazole 40 mg p.o. twice daily (9) Diabetic ulcer of right foot: Plan: Patient follows with the outpatient wound care clinic and was last seen 07/05/2021 Wound nurse consult requested, seen. -->see instructions, calloused, f/u as instructed (10) Depression: Plan: Continue Wellbutrin and lorazepam Seroquel 25 mg at bedtime (11) DVT prophylaxis: Plan: Patient currently is not on any home anticoagulation -- We will hold on chemical prophylaxis at this time pending further evaluation of Pleurx catheter and bloody drainage from catheter SCDs as well as NELLIE sanders ordered Admission and Anticipated Discharge Date Admission Date: July 17, 2021 Subjective Patient evaluated this morning doing well compared to yesterday draining significant bloody drainage and as discussed with pulm, will hold off further dornase and just drain for now Pleurx may have biofilm, may need pleurx removed vs home with keflex and follow up with Dr. Culver but will continue to monitor for now Pain controlled with ordered meds but needing something currently and will ask RN to administer HD yesterday and since has been feeling much better. Held AM BP meds (held amlodipine but he refused others for now) and will continue carvedilol for this evening if BPs remain stable, currently 130/62 No fever, chills, chest pain (outside from coughing at side of insertion of catheter), no shortness of breath, abdominal pain, nausea or vomiting. +BM yesterday. Eating/drinking no issue. Review of Systems Review of Systems: All systems reviewed & are unremarkable except as noted in HPI & below Physical Exam Physical Exam: Constitutional: WD male sitting up in bed, NAD Eyes: pupils equal/reactive to light Trachea midline without deviation, mm slightly dry Recp: erythema at catheter insertion site, granulation tissue present without further appreciable purulent drainage. CTAB (slightly diminished L base), no crackles/wheezing, on rom air CV: RRR, +systolic murmur, no LE edema, L ARM +AV fistula with +thrill GI: +BS , non-tender, no rebound, guarding or rigidity MSK/Neuro: moves all extremities, no facial droop/slurred speech, no focal deficit Skin: warm, dry, dried ulcer to dorsal distal aspect R foot Results & Data Results & Data ([facility]) Vital Signs (Past 12 Hours) Vital Signs Temp Pulse Resp BP Pulse Ox 07/20/21 06:18 36.9 C 77 14 130/62 93 07/19/21 21:29 37.5 C 81 16 123/55 L 92 Laboratory Results 07/20/21 07/20/21 07/20/21 Range/Units 08:08 06:22 06:22 WBC 10.77 (4.8-10.8) K/uL RBC 3.10 L (4.7-6.1) M/uL Hgb 10.3 L (14.0-18.0) g/dL Hct 31.5 L (42-52) % MCV 101.6 H (80-100) fL MCH 33.2 (25-34) pg MCHC 32.7 (32-36) g/dL RDW Std Deviation 49.1 H (36.4-46.3) fL RDW Coeff of Kami 13.2 (11.5-14.5) % Plt Count 444 H (130-400) K/uL MPV 8.8 (7.4-10.4) fL Sodium 136 (136-145) mmol/L Potassium 4.5 D (3.5-5.1) mmol/L Chloride 97 L (98-107) mmol/L Carbon Dioxide 27 (21-32) mmol/L Anion Gap 12 H (3-11) BUN 41 H D (6-23) mg/dl Creatinine 6.80 H* D (0.6-1.4) mg/dl Est Cr Clr Drug Dosing 12.9 ml/min Est GFR ( Amer) 10.0 ml/min Est GFR (Non-Af Amer) 8.6 ml/min BUN/Creatinine Ratio 6.0 L (10-20) Glucose 116 H (70-99(Fasting)) mg/dl POC Glucose 118 H (70-99) mg/dl Calcium 7.8 L (8.5-10.1) mg/dl Hep Bs Antigen (Neg) 07/19/21 07/19/21 07/19/21 Range/Units 20:49 16:12 06:05 WBC (4.8-10.8) K/uL RBC (4.7-6.1) M/uL Hgb (14.0-18.0) g/dL Hct (42-52) % MCV (80-100) fL MCH (25-34) pg MCHC (32-36) g/dL RDW Std Deviation (36.4-46.3) fL RDW Coeff of Kami (11.5-14.5) % Plt Count (130-400) K/uL MPV (7.4-10.4) fL Sodium (136-145) mmol/L Potassium (3.5-5.1) mmol/L Chloride (98-107) mmol/L Carbon Dioxide (21-32) mmol/L Anion Gap (3-11) BUN (6-23) mg/dl Creatinine (0.6-1.4) mg/dl Est Cr Clr Drug Dosing ml/min Est GFR ( Amer) ml/min Est GFR (Non-Af Amer) ml/min BUN/Creatinine Ratio (10-20) Glucose (70-99(Fasting)) mg/dl POC Glucose 152 H 88 (70-99) mg/dl Calcium (8.5-10.1) mg/dl Hep Bs Antigen Neg (Neg) Diagnostic Findings Chest X-Ray 07/19/21 09:09 XR chest 1V portable CLINICAL HISTORY: Follow up left pleural effusion and left-sided chest tube. COMPARISON STUDY: 07/18/2021 TECHNIQUE: 1 view of the chest FINDINGS: Single frontal view of the chest demonstrates the cardiomediastinal silhouette to be within normal limits. Compared to previous examination, there is small residual left pleural effusion is again seen along with chest tube in the left lung base. There is again no evidence for pneumothorax. The lungs are clear of alveolar opacities. There is no evidence for right pleural effusion. There is no evidence for vascular congestion. There is no acute osseous pathology. IMPRESSION: No change in very small left pleural effusion with no evidence for pneumothorax. Left-sided chest tube is again seen at the lung bases. ACT 112: Negative or not required by law. Electronically signed by: Luke Conroy M.D. 07/19/2021 9:48 AM Chest X-Ray 07/20/21 06:57 XR chest 1V portable HISTORY: Follow up pleural effusion COMPARISON: Chest 07/19/2021. FINDINGS: No pneumothorax. The heart remains enlarged. Left basilar pleural catheter is unchanged in position. Small left pleural effusion and left base airspace opacity has slightly progressed. The right lung is clear. IMPRESSION: Slight progression of the small left pleural effusion and left basilar airspace opacity. The left pleural catheter is unchanged in position. ACT 112: Negative or not required by law. Electronically signed by: Cristiano Brown M.D. 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 transplanted heart: [place] heart Diabetic gastroparesis E11.43; K31.84 GERD (gastroesophageal reflux disease) K21.9 Diabetic ulcer of right foot E11.621; L97.519 Depression F33.9 Active/Remission status: remission status unspecified Depression Type: major depressive disorder Major depression recurrence: recurrent DVT prophylaxis Z29.9 (1) CAD (coronary artery disease) Associated angina: without angina Coronary Disease-Associated Artery/Lesion type: [place] artery [place] vs. transplanted heart: k[place] heart Qualified Code(s): I25.10 - Atherosclerotic heart disease of [place] coronary artery without angina pectoris (2) Depression Active/Remission status: remission status unspecified Depression Type: major depressive disorder Major depression recurrence: recurrent Qualified Code(s): F33.9 - Major depressive disorder, recurrent, unspecified
[2021-07-20] MEDS: INSULIN ASPART PER UNIT SC SCH ×4 (08:49→21:01)
[2021-07-20] MEDS: LOSARTAN POTASSIUM 50 MG TAB PO SCH (08:50)
[2021-07-20] MEDS: carvediloL 25 MG TAB PO SCH ×2 (08:50→17:28)
[2021-07-20] MEDS: buPROPion SR 100 MG TABCR PO SCH (08:52)
[2021-07-20] MEDS: PANTOprazole 40 MG TAB PO SCH ×2 (08:52→21:02)
[2021-07-20] MEDS: ATORVASTATIN 10 MG TAB PO SCH (08:52)
[2021-07-20] MEDS: NEPHROCAPS PO SCH (08:52)
[2021-07-20] MEDS: SERTRALINE HCL 100 MG TABLET PO SCH (08:52)
[2021-07-20] MEDS ORDERED: INSULIN GLARGINE SOLOSTAR 100 UNITS/ML 3 ML PEN SQ SCH (09:00)
--- NOTE | 2021-07-20 10:16 | Pharmacy Report ---
Pharmacy Glycemic Short Note 2 - Date of Service July 20, 2021 - Glycemic Short BSG Results (Last 24 hours): 07/19/21 07/19/21 07/20/21 16:12 20:49 06:22 Glucose 116 H POC Glucose 88 152 H 07/20/21 08:08 Glucose POC Glucose 118 H OUTPATIENT ANTIDIABETIC REGIMEN: * Basaglar 16 units SQ AM * NovoLog TIDM, CF 45, CR 10, about 30 units/day ASSESSMENT: 07/20/21 * Patient's BSGs yesterday were 136-88-152 mg/dL. (no lunch BSG since at dialysis). * Patient received 12 units of insulin yesterday (all basal no bolus). * Fasting today is 118 mg/dL. Decrease Lantus by 1 unit to 11 units since fasting trending downwards significantly. * If PO intake does not improve, patient may need dextrose infusion since he is a type 1. 07/19/21 * Patient's BSGs yesterday were [phone] mg/dL. Patient received 13 units of insulin yesterday (12 units of basal and 1 unit of bolus). * Fasting today is 136 mg/dL. * Continue current regimen. Consideration to switch to NPH if BSGs become uncontrolled. Background * 50 year old male admitted with possible infected Pleur-X catheter, started on IV Vanc + Zosyn. * Type 1 diabetic, ESRD on HD MWF, known to pharmacy glycemic service. Started on Lantus + NovoLog on admission, have had good glycemic control on regular + NPH insulin in the past while inpatient, will consider switch to those if inadequate control. * Begin with reduced home dose of basal, BSG on admission 57mg/dl. PLAN FOR INPATIENT GLYCEMIC CONTROL: * Hold outpatient oral diabetes medications * Basal insulin * Lantus 11 units SQ daily * Bolus insulin * NovoLog per scale ACHS or Q6hrs while NPO * Goal Range: Low 110 mg/dL - High 160 mg/dL - for type 1 DM on HD * Correction Factor: 35 mg/dL/unit * Nutritional / Prandial insulin per carb ratio of 1 unit per 10 grams CHO consumed PLAN FOR DISCHARGE: * Patient's A1c = 7.1% 05/07/21, new A1c pending * However, this result is likely somewhat unreliable in ESRD patients d/t interactions between the A1c analyzing technique and high levels of urea in ESRD, reduced RBC life span, iron deficiency anemia, and EPO administration. * Continue home regimen and adjust based on SMBG.
[2021-07-20] MEDS: HYDROmorphone INJ 0.5 MG/0.5 ML SYR IV PRN ×2 (10:17→18:28)
[2021-07-20 11:16] LABS: Hematocrit (blood only) 31.6 % (42-52); Hemoglobin 9.9 g/dL (14.0-18.0); Mean Corpuscular Hemoglobin 31.8 pg (25-34); Mean Corpuscular Hgb Conc 31.3 g/dL (32-36); Mean Corpuscular Volume 101.6 fL (80-100); Mean Platelet Volume 8.5 fL (7.4-10.4); Platelet Count 442 K/uL (130-400); RDW Standard Deviation 48.1 fL (36.4-46.3); Red Blood Count 3.11 M/uL (4.7-6.1); White Blood Count 11.97 K/uL (4.8-10.8)
--- NOTE | 2021-07-20 11:51 | Pulmonology Progress Note ---
Date of Service July 20, 2021 Assessment & Plan (1) Cellulitis of chest wall: (2) Recurrent pleural effusion on left: Plan: Patient appears to be responding well to IV antibiotics. Cultures positive for MSSA. Unclear whether this represents an empyema versus a biofilm that has developed on the Pleurx catheter itself. He does not appear septic at this time. Discontinue tpa and dornase given blood appearance of pleural fluid. Hgb stable. Aspirated 325 ml of fluid today. Asked nurse to drain additional fluid around 6 pm. Likely pleuritis. Will have the patient follow up with thoracic surgery in [place] as outpatient to consider definitive treatment with VATS. Continue cefazolin. Thank you for the consult. We will continue to follow with you. Admission and Anticipated Discharge Date Admission Date: July 17, 2021 Subjective Pain around pleurx improved. No fevers or chills. Denies shortness of breath. Review of Systems Review of Systems: All systems reviewed & are unremarkable except as noted in HPI & below Physical Exam Physical Exam: Constitutional: Appears to be in mild distress with pain. Eyes: Pupils are equal round and reactive to light. Conjunctivae are normal. Anicteric sclera. Ears nose, mouth and throat: Face mask in place. Exam deferred. Neck: Trachea is midline. Visual inspection is normal. Respiratory: Clear to auscultation bilaterally. Pleurx catheter insertion site appears moderately inflamed with granulation tissue. No further pus seen. Cardiovascular: 2 out of 6 systolic flow murmur. No significant edema. Regular rate and rhythm.. Musculoskeletal: No cyanosis. Patient is able to move all extremities. Skin: No rashes, warm dry and intact. Neurologic: No obvious focal neurological deficits seen. Psychiatric: Alert and oriented x3. Results & Data Results & Data ([facility]) Vital Signs (Past 12 Hours) Vital Signs Temp Pulse Resp BP Pulse Ox 07/20/21 06:18 36.9 C 77 14 130/62 93 PG Care Time/CCT Total # of Minutes Spent Total Time Spent with Patient: Total time spent is greater than 50% in coordination of care (as documented) at patient's floor/unit and/or counseling patient: Coding Level of Care Code 71598 Subseq Hosp Care Lvl 2 Diagnoses Cellulitis of chest wall L03.313 Recurrent pleural effusion on left J90
--- NOTE | 2021-07-20 11:53 | Procedure Note ---
Procedure Note Date of Service July 20, 2021 Note Pleurx catheter dressing was undone. Cath was removed. Port was wiped with alcohol. Pleurx cath was accessed with a Luer-Andrea syringe after the appropriate adapter was placed. 325 mL of serosanguineous appearing fluid was evacuated. Patient tolerated procedure well. Port was again wiped with alcohol and the cath was replaced. Dressing was applied by nurse. Coding CPT Codes Pulmonary/Thoracic - Pulmonary and Thoracic: 23918 Pleural drainage w/o imaging ([id number]) [facility] [place] Procedure Codes (Charges) Pulmonary/Thoracic Procedure 1: Pulmonary and Thoracic: 84255 Pleural drainage w/o imaging
[2021-07-20] MEDS: ceFAZolin 1000MG 1,000 MG/7.5 ML SYR IV SCH (17:29)
[2021-07-20] MEDS: PROCHLORPERAZINE MALEATE 5 MG TAB PO PRN (18:21)
--- NOTE | 2021-07-20 18:59 | XRay Report ---
XR chest 1V portable HISTORY: Pleural effusion. Follow-up. COMPARISON: Chest 07/20/2021. FINDINGS: Small left pleural effusion and left basilar densities have improved in the interval. A lef t basilar pleural catheter remains unchanged in position. No pneumothorax. The right lung is clear. T he heart remains enlarged. No evidence for pulmonary edema. IMPRESSION: Decrease in size in the small left pleural effusion. The left basilar pleural catheter is unchanged i n position. ACT 112: Negative or not required by law. Electronically signed by: Cristiano Brown M.D. 07/20/2021 6:57 PM
[2021-07-20 19:11] LABS: Hematocrit (blood only) 30.9 % (42-52); Hemoglobin 9.8 g/dL (14.0-18.0); Mean Corpuscular Hemoglobin 32.2 pg (25-34); Mean Corpuscular Hgb Conc 31.7 g/dL (32-36); Mean Corpuscular Volume 101.6 fL (80-100); Mean Platelet Volume 8.4 fL (7.4-10.4); Platelet Count 446 K/uL (130-400); RDW Standard Deviation 48.5 fL (36.4-46.3); Red Blood Count 3.04 M/uL (4.7-6.1); White Blood Count 10.34 K/uL (4.8-10.8)
[2021-07-20] MEDS: MIRTAZAPINE TAB 15 MG TAB PO SCH (21:02)
[2021-07-20] MEDS: QUEtiapine FUMARATE 25 MG TABLET PO SCH (21:02)
[2021-07-20] MEDS: MELATONIN 3 MG TAB PO SCH (21:02)
[2021-07-21 06:29] LABS: Basophils # (auto) 0.04 K/uL (0-0.2); Basophils % (auto) 0.4 %; Eosinophils # (auto) 0.45 K/uL (0-0.5); Eosinophils % (auto) 4.4 %; Hematocrit (blood only) 29.1 % (42-52); Hemoglobin 9.2 g/dL (14.0-18.0); Immature Granulocytes # (auto) 0.09 K/uL (0.00-0.02); Immature Granulocytes % (auto) 0.9 %; Lymphocytes # (auto) 1.86 K/uL (1.2-3.4); Lymphocytes % (auto) 18.1 %; Mean Corpuscular Hemoglobin 32.1 pg (25-34); Mean Corpuscular Hgb Conc 31.6 g/dL (32-36); Mean Corpuscular Volume 101.4 fL (80-100); Mean Platelet Volume 8.4 fL (7.4-10.4); Monocytes # (auto) 1.34 K/uL (0.11-0.59); Neutrophils % (auto) 63.2 %; Platelet Count 422 K/uL (130-400); RDW Coefficient of Variation 12.9 % (11.5-14.5); RDW Standard Deviation 47.7 fL (36.4-46.3); Red Blood Count 2.87 M/uL (4.7-6.1); White Blood Count 10.28 K/uL (4.8-10.8)
[2021-07-21 07:01] LABS: BUN Creatinine Ratio 6.3 (10-20); Calcium 7.4 mg/dl (8.5-10.1); Creatinine Clr Calc Pharmacy 9.8 ml/min; Est GFR (African American) 7.1 ml/min; Est GFR (Non-African American) 6.1 ml/min; Potassium 4.7 mmol/L (3.5-5.1)
--- NOTE | 2021-07-21 08:22 | Hospitalist Progress Note ---
Date of Service July 21, 2021 Assessment & Plan (1) Pleural effusion: Plan: Patient has a left-sided Pleurx catheter that was placed in January [address] Lazo for recurrent effusion, 2nd to ESRD initially, but now with possible loculated infection vs biofilm for current PleurX Seen in clinic 07/17/21 for concerns for infection, draining 2-300ml brown colored pleural fluid Q2-3 days compared to prior 100cc clearer fluid Pulmonary on consult -- appreciate management of PleurX. * MIST II protocol initiated 07/18, tolerated well, bloody drainage noted. 650 output 07/18, 1060cc total 07/19 BLOODY * Continues on MIST II protocol MIST II protocol on hold given bloody drainage * --> PleurX cuff fell out per pulm today, hooked to tramaine currently and plans for removal tomorrow Vanco/Zosyn de-escalated to Ancef 07/19 (staph on pleural cx, pansensitive) WBC wnl, afebrile Blood cx remain NGTD CXR with stable L effusion with associated atelectasis Patient may also benefit from transfer to tertiary care facility for definitive treatment with VATS procedure * -- case previously discussed by pulm with [place] [facility] surgery regarding care and they rec'd broad spectrum abx and drainage of catheter. If no improvement, can consider transfer. Pulm prev spoke with Dr. Culver from cardiothoracic surgery Moving to telemetry for closer monitoring/IV medications * --> BP 200s systolic and dry heaving, unable to take PO medications. * --> Given hydralazine 5mg IV x 1 by pulmonary, ordered additional 5mg IV x 1 now * Also suspect some degree of pain causing n/v and ordered dose 0.5mg dilaudid x 1 now -- if effective will increase prn dose Seen by Dr. 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, with long-term current use of insulin: Plan: Continue with insulin at this time Hemoglobin A1c 7.2 Pharmacy on consult for glycemic management (3) Cyclic vomiting syndrome: Plan: Continue with antiemetics prn, IV also made available Dry heaving 07/19, improvement in afternoon after HD No issues 07/20 Dry heaving again 07/21, causing increased BP/pain to site of PLeurX (has been moving his bowels per patient) Moving to tele for closer monitoring/IV medications (4) ESRD (end stage renal disease): Plan: HD M/W/F Partial treatment AM 07/17, HD 07/19 for 1L along with dose of EPO Nephrology on consult --> plans for next HD Thursday if inpatient vs at dialysis center if discharged K 6.0 on 07/19, got HD, also given dose of parotimer x 1 07/19 after HD. K4.5 Anion gap metabolic acidosis from renal disease and infection as above --> no anion gap today Monitor BMP (5) Anemia of chronic disease: Plan: Not on any iron supplements Hemoglobin 10.3 Baseline hemoglobin between 11 and 12 g/Darrel, hgb 10 on AM, had been having increased darkened/bloody drainage DOPSTER from pleurx --> procrit prior to HD 07/19 Follow CBC -- hgb dropping, additional procrit by nephrology today, also with bloody drainage from catheter (6) CAD (coronary artery disease): Plan: underwent cardiac cath October 2018 which did not show any obstructive artery disease Continue antihypertensives including amlodipine, carvedilol, and losartan --> changed amlodipine to 10mg daily as last prescribed by nephrology. had been 5mg BID on admission (confirmed with patient he was taking 10mg daily) continue statin not on ASA as per Cardio recommendation from 10/2018 Vital signs per protocol Completed 6 months coumadin for hx PE/DVT, finished in May. (7) Diabetic gastroparesis: Plan: No motility agents for home regimen No current complaints of nausea or vomiting Continue home antiemetics and provide supportive care +BM 07/18, 07/19, 07/20 monitor (8) GERD (gastroesophageal reflux disease): Plan: Continue pantoprazole 40 mg p.o. twice daily (9) Diabetic ulcer of right foot: Plan: Patient follows with the outpatient wound care clinic and was last seen 07/05/2021 Wound nurse consult requested, seen. -->see instructions, calloused, f/u as instructed (10) Depression: Plan: Continue Wellbutrin and lorazepam Seroquel 25 mg at bedtime (11) DVT prophylaxis: Plan: Patient currently is not on any home anticoagulation -- We will hold on chemical prophylaxis at this time pending further evaluation of Pleurx catheter and bloody drainage from catheter but patient is at high risk given recent dvt/pe and completed course of coumadin in May SCDs as well as NELLIE sanders ordered Plan: moving to telemetry for closer monitoring/need for IV medications pleurx to be removed tomorrow per pulm may need transfer vs d/c oral and f/u thoracic per pulmonary Admission and Anticipated Discharge Date Admission Date: July 17, 2021 Subjective patient evaluated this morning some nausea this morning, received compazine and states this is helping also medicated for pain +BM yesterday Denies fever/shortness of breath but does endorse feeling slightly warm. not yet seen by pulmonology but discussed may need to remove the catheter. seen again this afternoon, continued with n/v and dry heaving. Dilaudid 0.25 not effective at pain control. Cuff fell out from PleurX upon eval by pulmonary this morning and currently hooked to tramaine, continues with bloody drainage. Asked nephrology to see about partial HD sessiono, they ordered [id number] and will plan for HD tomorrow. Transferring to telemetry for closer monitoring/administration of IV medications as BP elevated from n/v/pain and unable to take PO. Additional 5mg Hydralazine ordered asa 5mg ordered by pulmonary most recently and SBP >200 (dry heaving currently) Review of Systems Review of Systems: All systems reviewed & are unremarkable except as noted in HPI & below Physical Exam Physical Exam: Constitutional: WD male sitting up in bed, dry heavying to emesis bag, mild distress noted Eyes: pupils equal/reactive to light Trachea midline without deviation, mm slightly dry Recp: erythema at catheter insertion site, granulation tissue present without further appreciable purulent drainage. CTAB (slightly diminished L base), no crackles/wheezing, on rom air CV: RRR, +systolic murmur, no LE edema, L ARM +AV fistula with +thrill GI: +BS , non-tender, no rebound, guarding or rigidity MSK/Neuro: moves all extremities, no facial droop/slurred speech, no focal deficit Skin: warm, dry, dried ulcer to dorsal distal aspect R foot Results & Data Results & Data ([facility]) Vital Signs (Past 12 Hours) Vital Signs Temp Pulse Pulse Resp BP Pulse Ox 07/21/21 07:20 36.7 C 75 16 150/76 H 95 07/21/21 01:10 65 104/60 07/21/21 00:36 69 127/64 07/21/21 00:34 71 76/36 L 07/20/21 22:53 36.7 C 65 14 93/48 L 93 Laboratory Results 07/21/21 07/21/21 07/21/21 Range/Units 08:03 05:55 05:55 WBC 10.28 (4.8-10.8) K/uL RBC 2.87 L (4.7-6.1) M/uL Hgb 9.2 L (14.0-18.0) g/dL Hct 29.1 L (42-52) % MCV 101.4 H (80-100) fL MCH 32.1 (25-34) pg MCHC 31.6 L (32-36) g/dL RDW Std Deviation 47.7 H (36.4-46.3) fL RDW Coeff of Kami 12.9 (11.5-14.5) % Plt Count 422 H (130-400) K/uL MPV 8.4 (7.4-10.4) fL Immature Gran % (Auto) 0.9 % Neut % (Auto) 63.2 % Lymph % (Auto) 18.1 % [place] % (Auto) 13.0 % Eos % (Auto) 4.4 % Baso % (Auto) 0.4 % Neut # (Auto) 6.50 (1.4-6.5) K/uL Lymph # (Auto) 1.86 (1.2-3.4) K/uL [place] # (Auto) 1.34 H (0.11-0.59) K/uL Eos # (Auto) 0.45 (0-0.5) K/uL Baso # (Auto) 0.04 (0-0.2) K/uL Immature Gran # (Auto) 0.09 H (0.00-0.02) K/uL Sodium 131 L (136-145) mmol/L Potassium 4.7 (3.5-5.1) mmol/L Chloride 95 L (98-107) mmol/L Carbon Dioxide 25 (21-32) mmol/L Anion Gap 11 (3-11) BUN 57 H (6-23) mg/dl Creatinine 9.01 H* D (0.6-1.4) mg/dl Est Cr Clr Drug Dosing 9.8 ml/min Est GFR ( Amer) 7.1 ml/min Est GFR (Non-Af Amer) 6.1 ml/min BUN/Creatinine Ratio 6.3 L (10-20) Glucose 217 H (70-99(Fasting)) mg/dl POC Glucose 242 H (70-99) mg/dl Calcium 7.4 L (8.5-10.1) mg/dl 07/21/21 07/20/21 07/20/21 Range/Units 00:38 20:49 18:49 WBC 10.34 (4.8-10.8) K/uL RBC 3.04 L (4.7-6.1) M/uL Hgb 9.8 L (14.0-18.0) g/dL Hct 30.9 L (42-52) % MCV 101.6 H (80-100) fL MCH 32.2 (25-34) pg MCHC 31.7 L (32-36) g/dL RDW Std Deviation 48.5 H (36.4-46.3) fL RDW Coeff of Kami 13.0 (11.5-14.5) % Plt Count 446 H (130-400) K/uL MPV 8.4 (7.4-10.4) fL Immature Gran % (Auto) % Neut % (Auto) % Lymph % (Auto) % [place] % (Auto) % Eos % (Auto) % Baso % (Auto) % Neut # (Auto) (1.4-6.5) K/uL Lymph # (Auto) (1.2-3.4) K/uL [place] # (Auto) (0.11-0.59) K/uL Eos # (Auto) (0-0.5) K/uL Baso # (Auto) (0-0.2) K/uL Immature Gran # (Auto) (0.00-0.02) K/uL Sodium (136-145) mmol/L Potassium (3.5-5.1) mmol/L Chloride (98-107) mmol/L Carbon Dioxide (21-32) mmol/L Anion Gap (3-11) BUN (6-23) mg/dl Creatinine (0.6-1.4) mg/dl Est Cr Clr Drug Dosing ml/min Est GFR ( Amer) ml/min Est GFR (Non-Af Amer) ml/min BUN/Creatinine Ratio (10-20) Glucose (70-99(Fasting)) mg/dl POC Glucose 175 H 211 H (70-99) mg/dl Calcium (8.5-10.1) mg/dl 07/20/21 07/20/21 07/20/21 Range/Units 17:05 12:03 10:47 WBC 11.97 H (4.8-10.8) K/uL RBC 3.11 L (4.7-6.1) M/uL Hgb 9.9 L (14.0-18.0) g/dL Hct 31.6 L (42-52) % MCV 101.6 H (80-100) fL MCH 31.8 (25-34) pg MCHC 31.3 L (32-36) g/dL RDW Std Deviation 48.1 H (36.4-46.3) fL RDW Coeff of Kami 13.0 (11.5-14.5) % Plt Count 442 H (130-400) K/uL MPV 8.5 (7.4-10.4) fL Immature Gran % (Auto) % Neut % (Auto) % Lymph % (Auto) % [place] % (Auto) % Eos % (Auto) % Baso % (Auto) % Neut # (Auto) (1.4-6.5) K/uL Lymph # (Auto) (1.2-3.4) K/uL [place] # (Auto) (0.11-0.59) K/uL Eos # (Auto) (0-0.5) K/uL Baso # (Auto) (0-0.2) K/uL Immature Gran # (Auto) (0.00-0.02) K/uL Sodium (136-145) mmol/L Potassium (3.5-5.1) mmol/L Chloride (98-107) mmol/L Carbon Dioxide (21-32) mmol/L Anion Gap (3-11) BUN (6-23) mg/dl Creatinine (0.6-1.4) mg/dl Est Cr Clr Drug Dosing ml/min Est GFR ( Amer) ml/min Est GFR (Non-Af Amer) ml/min BUN/Creatinine Ratio (10-20) Glucose (70-99(Fasting)) mg/dl POC Glucose 195 H 193 H (70-99) mg/dl Calcium (8.5-10.1) mg/dl Diagnostic Findings Chest X-Ray 07/20/21 18:27 XR chest 1V portable HISTORY: Pleural effusion. Follow-up. COMPARISON: Chest 07/20/2021. FINDINGS: Small left pleural effusion and left basilar densities have improved in the interval. A left basilar pleural catheter remains unchanged in position. No pneumothorax. The right lung is clear. The heart remains enlarged. No evidence for pulmonary edema. IMPRESSION: Decrease in size in the small left pleural effusion. The left basilar pleural catheter is unchanged in position. ACT 112: Negative or not required by law. Electronically signed by: Cristiano Brown M.D. 07/20/2021 6:57 PM Chest X-Ray 07/21/21 08:21 XR chest 1V portable CLINICAL HISTORY: follow up TECHNIQUE: Single frontal radiograph of the chest was obtained. Comparison: Comparison is made to chest one view 07/20/2021 FINDINGS: A left pleural catheter is again seen. The cardiomediastinal silhouette is normal. Again noted is airspace opacity in the left lower lobe. Blunting of the left costophrenic angle is again seen. IMPRESSION: No significant change in left pleural effusion with underlying airspace opacity which likely reflects atelectasis. ACT 112: Negative or not required by law. Electronically signed by: Maninder Cohen M.D. 07/21/2021 9:08 AM Chest X-Ray 07/21/21 12:59 XR chest 1V portable CLINICAL HISTORY: follow up effusion TECHNIQUE: Single frontal radiograph of the chest was obtained. Comparison: Comparison is made to chest one view 07/21/2021 FINDINGS: Lines and tubes are stable. The cardiomediastinal silhouette is normal. There is a left pleural effusion. Left lower lobe airspace opacity is seen. IMPRESSION: Stable left pleural effusion with associated atelectasis. ACT 112: Negative or not required by law. Electronically signed by: Maninder Cohen M.D. 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 transplanted heart: sun[place] heart Associated angina: without angina Diabetic gastroparesis E11.43; K31.84 GERD (gastroesophageal reflux disease) K21.9 Diabetic ulcer of right foot E11.621; L97.519 Depression F33.9 Depression Type: major depressive disorder Major depression recurrence: recurrent Active/Remission status: remission status unspecified DVT prophylaxis Z29.9 (1) CAD (coronary artery disease) Coronary Disease-Associated Artery/Lesion type: [place] artery [place] vs. transplanted heart: [place] heart Associated angina: without angina Qualified Code(s): I25.10 - Atherosclerotic heart disease of sun[place] coronary artery without angina pectoris (2) Depression Depression Type: major depressive disorder Major depression recurrence: recurrent Active/Remission status: remission status unspecified Qualified Code(s): F33.9 - Major depressive disorder, recurrent, unspecified
[2021-07-21] MEDS: PROCHLORPERAZINE MALEATE 5 MG TAB PO PRN (08:42)
[2021-07-21] MEDS: HYDROmorphone INJ 0.5 MG/0.5 ML SYR IV PRN ×2 (08:49→23:15)
--- NOTE | 2021-07-21 09:10 | XRay Report ---
XR chest 1V portable CLINICAL HISTORY: follow up TECHNIQUE: Single frontal radiograph of the chest was obtained. Comparison: Comparison is made to chest one view 07/20/2021 FINDINGS: A left pleural catheter is again seen. The cardiomediastinal silhouette is normal. Again noted is air space opacity in the left lower lobe. Blunting of the left costophrenic angle is again seen. IMPRESSION: No significant change in left pleural effusion with underlying airspace opacity which likely reflects atelectasis. ACT 112: Negative or not required by law. Electronically signed by: Maninder Coehn M.D. 07/21/2021 9:08 AM
[2021-07-21] MEDS: INSULIN GLARGINE SOLOSTAR 100 UNITS/ML 3 ML PEN SQ SCH (09:30)
[2021-07-21] MEDS: INSULIN ASPART PER UNIT SC SCH ×4 (09:32→21:56)
[2021-07-21] MEDS: ONDANSETRON 4 MG OD TAB PO PRN ×2 (11:09→22:27)
[2021-07-21] MEDS ORDERED: hydrALAZINE HCL 20 MG/ML VIAL IV ONE ×2 (11:14→14:12)
[2021-07-21] MEDS: LORazepam 0.5 MG TAB PO PRN (12:13)
--- NOTE | 2021-07-21 12:15 | Pulmonology Progress Note ---
Date of Service July 21, 2021 Assessment & Plan (1) Cellulitis of chest wall: (2) Recurrent pleural effusion on left: Plan: Patient appears to be responding well to IV antibiotics. Cultures positive for MSSA. Unclear whether this represents an empyema versus a biofilm that has developed on the Pleurx catheter itself. He does not appear septic at this time. Discontinued tpa and dornase given bloody appearance of pleural fluid. Hemoglobin has trended downwards, but he is hemodynamically stable. Upon manipulation of the Pleurx catheter today, the cuff was pulled from the tract. I did hook the catheter up to continuous suction at -20 cm H2O and he has had approximately 380 mL of serosanguineous appearing fluid drain out. We will leave the catheter to drainage today, however, the catheter will need to come out prior to discharge. Discussed with thoracic surgery in [place] who recommends pulling the catheter once drainage decreases and consideration of a pigtail catheter in a different site if there is still concern for empyema. The chest wall cellulitis appears markedly improved compared to admission. Continue IV antibiotics at this time with Ancef. Discussed at length with nurse at bedside. Thank you for the consult. We will continue to follow with you. Admission and Anticipated Discharge Date Admission Date: July 17, 2021 Subjective Patient seen and examined. He is having some nausea today and notes that he feels warm. He is having some increasing pain around the left pleural catheter site. Review of Systems Review of Systems: All systems reviewed & are unremarkable except as noted in HPI & below Physical Exam Physical Exam: Constitutional: Appears to be in mild distress with pain. Eyes: Pupils are equal round and reactive to light. Conjunctivae are normal. Anicteric sclera. Ears nose, mouth and throat: Face mask in place. Exam deferred. Neck: Trachea is midline. Visual inspection is normal. Respiratory: Clear to auscultation bilaterally. Pleurx catheter insertion site appears moderately inflamed with granulation tissue. Cardiovascular: 2 out of 6 systolic flow murmur. No significant edema. Regular rate and rhythm.. Musculoskeletal: No cyanosis. Patient is able to move all extremities. Skin: No rashes, warm dry and intact. Neurologic: No obvious focal neurological deficits seen. Psychiatric: Alert and oriented x3. Results & Data Results & Data ([facility]) Vital Signs (Past 12 Hours) Vital Signs Temp Pulse Pulse Resp BP Pulse Ox 07/21/21 11:13 81 184/83 H 07/21/21 07:20 36.7 C 75 16 150/76 H 95 07/21/21 01:10 65 104/60 07/21/21 00:36 69 127/64 07/21/21 00:34 71 76/36 L PG Care Time/CCT Total # of Minutes Spent Total Time Spent with Patient: Total time spent is greater than 50% in coordination of care (as documented) at patient's floor/unit and/or counseling patient: Coding Level of Care Code 99135 Subseq Hosp Care Lvl 3 Diagnoses Cellulitis of chest wall L03.313 Recurrent pleural effusion on left J90
[2021-07-21] MEDS ORDERED: HYDROmorphone INJ 0.5 MG/0.5 ML SYR IV PRN (13:06)
--- NOTE | 2021-07-21 13:44 | Nephrology Progress Note ---
Date of Service July 21, 2021 Assessment & Plan Admission and Anticipated Discharge Date Admission Date: July 17, 2021 Subjective Subjective S---Has Chronic Nausea and vomiting. Bloody discharge from pleural cath PHYSICAL EXAMINATION: GENERAL: A middle-aged white male who appears comfortable at this time. He is not in any respiratory distress.On room air. He is awake, alert, oriented x3. HEENT: Mucous membranes are moist. NECK: Supple. No jugular venous distention. CHEST: Decreased breath sound in the left with some crackles. CARDIOVASCULAR: S1 and S2, regular. Systolic murmur heard. ABDOMEN: Soft, nontender. EXTREMITIES: Show no edema. NEUROLOGIC: Awake, alert, oriented x3. LABORATORY TEST: reviewed in detail ASSESSMENT AND PLAN: A 50-year-old male with longstanding diabetes with endstage renal disease on chronic hemodialysis Thursday, Thursday, Thursday, now admitted with complications of the PleurX catheter. Endstage renal disease, will get dialysis later tomorrow--3hr 30 min 2 k bath and take 2.5 to 3 kilo off. We will not use heparin given the issue with PleurX catheter. No dialysis today Results & Data ([facility]) Vital Signs (Past 12 Hours) Vital Signs Temp Pulse Resp BP Pulse Ox 07/21/21 11:13 81 184/83 H 07/21/21 07:20 36.7 C 75 16 150/76 H 95
--- NOTE | 2021-07-21 13:56 | XRay Report ---
XR chest 1V portable CLINICAL HISTORY: follow up effusion TECHNIQUE: Single frontal radiograph of the chest was obtained. Comparison: Comparison is made to chest one view 07/21/2021 FINDINGS: Lines and tubes are stable. The cardiomediastinal silhouette is normal. There is a left pleural effus ion. Left lower lobe airspace opacity is seen. IMPRESSION: Stable left pleural effusion with associated atelectasis. ACT 112: Negative or not required by law. Electronically signed by: Maninder Cohen M.D. 07/21/2021 1:55 PM
[2021-07-21] MEDS ORDERED: HYDROmorphone INJ 0.5 MG/0.5 ML SYR IV STA (14:13)
[2021-07-21] MEDS: LOSARTAN POTASSIUM 50 MG TAB PO SCH (14:17)
[2021-07-21] MEDS: PANTOprazole 40 MG TAB PO SCH ×2 (14:17→21:53)
[2021-07-21] MEDS: ATORVASTATIN 10 MG TAB PO SCH (14:17)
[2021-07-21] MEDS: NEPHROCAPS PO SCH (14:17)
[2021-07-21] MEDS: SERTRALINE HCL 100 MG TABLET PO SCH (14:17)
[2021-07-21] MEDS: buPROPion SR 100 MG TABCR PO SCH (14:17)
[2021-07-21] MEDS: carvediloL 25 MG TAB PO SCH ×2 (14:17→17:34)
[2021-07-21] MEDS ORDERED: METOPROLOL TARTRATE 1 MG/ML VIAL IV STA ×2 (14:29→16:32)
[2021-07-21] MEDS ORDERED: hydrALAZINE HCL 20 MG/ML VIAL IV PRN (15:41)
[2021-07-21] MEDS ORDERED: diphenhydrAMINE 50 MG/ML VIAL IV ONE (16:06)
[2021-07-21] MEDS: ceFAZolin 1000MG 1,000 MG/7.5 ML SYR IV SCH (18:23)
[2021-07-21] MEDS: PROCHLORPERAZINE 10 MG in SYRINGE 8 ML IV PRN (19:51)
[2021-07-21] MEDS: MELATONIN 3 MG TAB PO SCH (21:51)
[2021-07-21] MEDS: QUEtiapine FUMARATE 25 MG TABLET PO SCH (21:52)
[2021-07-21] MEDS: MIRTAZAPINE TAB 15 MG TAB PO SCH (21:52)
[2021-07-22] MEDS ORDERED: EPOETIN ALFA 10,000 UNITS/ML VIAL IV SCH (07:00)
[2021-07-22] MEDS ORDERED: SODIUM CHLORIDE 0.9% 1000ML 1,000 ML IV PRN (07:00)
[2021-07-22 07:18] LABS: Basophils # (auto) 0.01 K/uL (0-0.2); Basophils % (auto) 0.1 %; Hematocrit (blood only) 30.8 % (42-52); Hemoglobin 9.7 g/dL (14.0-18.0); Immature Granulocytes # (auto) 0.13 K/uL (0.00-0.02); Immature Granulocytes % (auto) 1.1 %; Lymphocytes # (auto) 0.93 K/uL (1.2-3.4); Lymphocytes % (auto) 7.7 %; Mean Corpuscular Hemoglobin 31.8 pg (25-34); Mean Corpuscular Hgb Conc 31.5 g/dL (32-36); Mean Platelet Volume 8.4 fL (7.4-10.4); Monocytes # (auto) 1.04 K/uL (0.11-0.59); Monocytes % (auto) 8.6 %; Neutrophils % (auto) 82.5 %; Platelet Count 522 K/uL (130-400); RDW Coefficient of Variation 12.8 % (11.5-14.5); RDW Standard Deviation 46.7 fL (36.4-46.3); Red Blood Count 3.05 M/uL (4.7-6.1); White Blood Count 12.11 K/uL (4.8-10.8)
[2021-07-22] MEDS: carvediloL 25 MG TAB PO SCH ×2 (07:50→17:38)
[2021-07-22] MEDS: amLODIPine BESYLATE 5 MG TAB PO SCH (07:50)
[2021-07-22] MEDS: LOSARTAN POTASSIUM 50 MG TAB PO SCH (07:51)
[2021-07-22 07:53] LABS: Alanine Aminotransferase < 3 U/L (7-52); Albumin Globulin Ratio 1.1 (0.9-2); Albumin Level 3.1 gm/dl (3.4-5.0); Alkaline Phosphatase 60 U/L (34-104); Anion Gap 22 (3-11); Aspartate Aminotransferase 8 U/L (13-39); Bilirubin,Total 0.3 mg/dl (0.2-1.0); Blood Urea Nitrogen 76 mg/dl (6-23); Calcium 7.6 mg/dl (8.5-10.1); Carbon Dioxide 19 mmol/L (21-32); Chloride 94 mmol/L (98-107); Creatinine Clr Calc Pharmacy 7.8 ml/min; Est GFR (African American) 5.6 ml/min; Est GFR (Non-African American) 4.9 ml/min; Globulin 2.7 gm/dl (2.5-4.0); Glucose 229 mg/dl (70-99(Fasting)); Sodium 135 mmol/L (136-145); Total Protein 5.8 gm/dl (6.0-8.3)
[2021-07-22 08:16] LABS: Potassium 5.7 mmol/L (3.5-5.1)
[2021-07-22] MEDS: INSULIN GLARGINE SOLOSTAR 100 UNITS/ML 3 ML PEN SQ SCH (08:29)
[2021-07-22] MEDS: INSULIN ASPART PER UNIT SC SCH ×4 (08:31→20:40)
--- NOTE | 2021-07-22 10:39 | Pulmonology Progress Note ---
Date of Service July 22, 2021 Assessment & Plan (1) Cellulitis of chest wall: (2) Recurrent pleural effusion on left: Plan: Attending: Dr. Rob Impression: 50-year-old male admitted with pain and discharge from Pleurx catheter on the left. Catheter was placed by Dr. Lazo in January 2021. Patient underwent 3 days of MIST II protocol. This was discontinued as patient's effusion appeared to be more serosanguineous. Cultures from around the catheter as well as pleural fluid positive for MSSA. Patient initially started on Zosyn and vancomycin. Continues on IV antibiotics with Ancef at this time. Recommendations: 1. Left-sided empyema: * Etiology appears to be infected Pleurx catheter on the left. * MSSA. Day #6 antibiotics. Continue Ancef * With manipulation of the Pleurx catheter yesterday the cuffs appeared to be pulled from the tract. * We will plan on removing Pleurx catheter today. * Chest x-ray ordered prior to removal. * Chest tube currently draining to gravity. 2. Chest wall cellulitis: * Secondary to infected Pleurx catheter site * Day #6 antibiotics. Continue Ancef for MSSA * Wound care nurse managing. Thank you for including us in the care of this patient. We will continue to follow along with you. Please refer to Dr. Rob's addendum for further recommendations. Admission and Anticipated Discharge Date Admission Date: July 17, 2021 Supervising Physician Co-Signing Physician Notes Patient seen and examined. EMR reviewed. Imaging independently reviewed. Discussed with off going retail management keyholder and with NOEL. Agree with assessment plan as noted. Patient presented with a tunneled catheter infection as well as pleural space infection. He has been appropriately treated with antibiotics. The catheter is now migrated out of the pleural space and will be removed. Continue antimicrobial therapy. Anticipate the patient will need at least 10 to 14 days of antimicrobial therapy. At this point time would recommend that he be followed clinically for evidence of recurrence of the pleural effusion. If it were to recur and require additional intervention, consideration for thoracic surgery evaluation for possible surgical pleurodesis might be appropriate. We will follow-up chest x-ray in the morning. Management of the patient's mother medical issues per primary service Subjective Attending: Dr. Rob Patient seen and examined in the dialysis lab. At this time he has no discomfort from the chest tube and currently denies any shortness of breath. He has no evidence of respiratory distress. He was sleeping comfortable on my arrival to the lab. He was easily awakened. He denies any fever, chills, sweats, rigors. No significant pain around insertion site of Pleurx catheter. He has no other acute complaints. Review of Systems Review of Systems: All systems reviewed & are unremarkable except as noted in Subjective Physical Exam Physical Exam: GENERAL : No acute distress. No respiratory distress. Patient pleasant. EYES: No icterus, gaze conjugate NOSE: No evidence of epistaxis MOUTH: No lesions or candidiasis. Mucosa is dry NECK: Supple LUNGS: CTA B/L, no wheezes, rales or rhonchi. Breath sounds appear to be equal at the bilateral bases. HEART: Regular, rate controlled ABDOMEN: Soft, NT, ND, BS Present EXTREMITIES: No LE edema, pedal pulses intact. AV fistula accessed in the left arm. Patient currently undergoing dialysis. NEURO: A&OX3 Results & Data Results & Data ([facility]) Vital Signs (Past 12 Hours) Vital Signs Temp Pulse Pulse Pulse Resp BP Pulse Ox 07/22/21 08:00 36.8 C 73 76 18 145/69 H 97 07/22/21 04:05 36.6 C 65 16 114/61 98 07/21/21 22:57 36.4 C L 72 18 170/64 H 98 Critical Care Results & Data Vital Signs (Past 12 Hours) Vital Signs Temp Pulse Pulse Pulse Resp BP Pulse Ox 07/22/21 08:00 36.8 C 73 76 18 145/69 H 97 07/22/21 04:05 36.6 C 65 16 114/61 98 07/21/21 22:57 36.4 C L 72 18 170/64 H 98 Lab & Micro Results (Past 24 Hours) RBC 3.05 M/uL (4.7-6.1) L 07/22/21 WBC 12.11 K/uL (4.8-10.8) H 07/22/21 Hgb 9.7 g/dL (14.0-18.0) L 07/22/21 Hct 30.8 % (42-52) L 07/22/21 MCV 101.0 fL (80-100) H 07/22/21 MCH 31.8 pg (25-34) 07/22/21 MCHC 31.5 g/dL (32-36) L 07/22/21 RDW Standard Deviation 46.7 fL (36.4-46.3) H 07/22/21 RDW Coefficient of Variation 12.8 % (11.5-14.5) 07/22/21 Plt Count 522 K/uL (130-400) H 07/22/21 MPV 8.4 fL (7.4-10.4) 07/22/21 Neutrophils (%) (Auto) 82.5 % 07/22/21 Lymphocytes (%) (Auto) 7.7 % 07/22/21 Monocytes # (Auto) 1.04 K/uL (0.11-0.59) H 07/22/21 Eosinophils # (Auto) 0.00 K/uL (0-0.5) 07/22/21 Immature Granulocyte % (Auto) 1.1 % 07/22/21 Neutrophils # (Auto) 10.00 K/uL (1.4-6.5) H 07/22/21 Lymphocytes # (Auto) 0.93 K/uL (1.2-3.4) L 07/22/21 Monocytes # (Auto) 1.04 K/uL (0.11-0.59) H 07/22/21 Eosinophils # (Auto) 0.00 K/uL (0-0.5) 07/22/21 Basophils # (Auto) 0.01 K/uL (0-0.2) 07/22/21 Immature Granulocyte # (Auto) 0.13 K/uL (0.00-0.02) H 07/22/21 Na 135 mmol/L (136-145) L 07/22/21 K 5.7 mmol/L (3.5-5.1) H 07/22/21 Cl 94 mmol/L (98-107) L 07/22/21 CO2 19 mmol/L (21-32) L 07/22/21 Anion Gap 22 (3-11) H 07/22/21 BUN 76 mg/dl (6-23) H 07/22/21 Creatinine 10.89 mg/dl (0.6-1.4) H* 07/22/21 Estimated GFR ( Amer) 5.6 ml/min 07/22/21 Estimated GFR (Non-Af Amer) 4.9 ml/min 07/22/21 BUN/Creatinine Ratio 7.0 (10-20) L 07/22/21 Glu 229 mg/dl (70-99(Fasting)) H 07/22/21 Ca 7.6 mg/dl (8.5-10.1) L 07/22/21 Total Bilirubin 0.3 mg/dl (0.2-1.0) 07/22/21 AST 8 U/L (13-39) L 07/22/21 ALT < 3 U/L (7-52) L 07/22/21 Alkaline Phosphatase 60 U/L (34-104) 07/22/21 TP 5.8 gm/dl (6.0-8.3) L 07/22/21 Albumin 3.1 gm/dl (3.4-5.0) L 07/22/21 Globulin 2.7 gm/dl (2.5-4.0) 07/22/21 Albumin/Globulin Ratio 1.1 (0.9-2) 07/22/21 Calcium Level 7.6 mg/dl (8.5-10.1) L 07/22/21 06:38 07/22/21 Diagnostic Findings (Past 24 Hours) Chest X-Ray 07/21/21 12:59 XR chest 1V portable CLINICAL HISTORY: follow up effusion TECHNIQUE: Single frontal radiograph of the chest was obtained. Comparison: Comparison is made to chest one view 07/21/2021 FINDINGS: Lines and tubes are stable. The cardiomediastinal silhouette is normal. There is a left pleural effusion. Left lower lobe airspace opacity is seen. IMPRESSION: Stable left pleural effusion with associated atelectasis. ACT 112: Negative or not required by law. Electronically signed by: Maninder Cohen M.D. 07/21/2021 1:55 PM I & O Totals 24 Hours 07/21/21 07/22/21 07/23/21 06:59 06:59 06:59 Intake Total 240 / 240 Output Total 775 / 775 721 / 721 140 / 140 Balance -775 / -775 -481 / -481 -140 / -140 Cumulative 07/17/21 12:40 thru 07/22/21 07:10 Intake Total 1180 Output Total 3350 Balance -2170 RT Ventilator Mngmt (Last Documented) Ventilator Ordered Settings Respiratory Rate 18 07/22/21 08:00 Ventilator - PT Measurements Respiratory Rate 18 PG Care Time/CCT Total # of Minutes Spent Total Time Spent with Patient: Total time spent is greater than 50% in coordination of care (as documented) at patient's floor/unit and/or counseling patient: 30 minutes Coding Level of Care Code 51400 Subseq Hosp Care Lvl 2 Diagnoses Cellulitis of chest wall L03.313 Recurrent pleural effusion on left J90 Time Spent (min) 30
[2021-07-22] MEDS: PANTOprazole 40 MG TAB PO SCH ×2 (12:57→20:41)
[2021-07-22] MEDS: buPROPion SR 100 MG TABCR PO SCH (12:57)
[2021-07-22] MEDS: SERTRALINE HCL 100 MG TABLET PO SCH (12:58)
[2021-07-22] MEDS: ATORVASTATIN 10 MG TAB PO SCH (12:58)
[2021-07-22] MEDS: NEPHROCAPS PO SCH (12:58)
[2021-07-22] MEDS: HYDROmorphone INJ 0.5 MG/0.5 ML SYR IV PRN (13:04)
--- NOTE | 2021-07-22 13:14 | XRay Report ---
SINGLE VIEW CHEST CLINICAL HISTORY: Pleural effusion FINDINGS: An AP, portable, upright chest radiograph is compared to study dated 07/21/2021 and correlat ed with chest CT dated 07/18/2021. The heart is enlarged. The pulmonary vasculature is noncongested. C hronic interstitial thickening is similar to previous. A chest tube is again seen at the left lung ba se. A small residual left pleural effusion with left basilar consolidation is unchanged. The right leonardo ng appears clear. No pneumothorax is seen. The skeletal structures are osteopenic. The bony thorax is grossly intact. IMPRESSION: 1. A left-sided chest tube is unchanged in position. 2. A small residual left pleural effusion with left basilar consolidation is unchanged. 3. Cardiomegaly. ACT 112: Negative or not required by law. Electronically signed by: Dev Burden M.D. 07/22/2021 1:12 PM
[2021-07-22] MEDS ORDERED: LIDOCAINE 1% LOCAL 20 ML VIAL ONE (13:31)
--- NOTE | 2021-07-22 14:05 | Procedure Note ---
Procedure Note Date of Service July 22, 2021 Note Procedure: Removal of left Pleurx catheter Indication: Catheter dislodged and fibrous hub is outside of tract Date: 07/22/2021 Time: 13:45 Consent: Not indicated Narrative: Patient had Pleurx catheter placed in January [address] Lazo. Patient presented last week with local skin cellulitis around the catheter which was growing MSSA. Patient also had empyema with MSSA. Yesterday, it was noted that the catheter had become dislodged and that the fibrous hub was outside of the incision. Patient was placed in the right lateral recumbent position. Dressing was removed from Pleurx catheter. On examination, the hub was clearly out of the incisional tract. Patient was instructed to home to create positive pressure and catheter was easily removed without need of any anesthetic. Incision site was covered with 4 x 4's and Medipore tape. Patient had no complaints and no shortness of breath. Patient tolerated the removal of the catheter without any complications. Nursing advised to keep dressing dry. Will examine dressing tomorrow on pulmonary rounds. Coding
--- NOTE | 2021-07-22 15:41 | Nephrology Progress Note ---
Date of Service July 22, 2021 Assessment & Plan Admission and Anticipated Discharge Date Admission Date: July 17, 2021 Subjective Subjective S---Has Chronic Nausea and vomiting. Bloody discharge from pleural cath and has been removed earlier today. Also had Dialysis today. PHYSICAL EXAMINATION: GENERAL: A middle-aged white male who appears comfortable at this time. He is not in any respiratory distress.On room air. He is awake, alert, oriented x3. HEENT: Mucous membranes are moist. NECK: Supple. No jugular venous distention. CHEST: Decreased breath sound in the left with some crackles. CARDIOVASCULAR: S1 and S2, regular. Systolic murmur heard. ABDOMEN: Soft, nontender. EXTREMITIES: Show no edema. NEUROLOGIC: Awake, alert, oriented x3. LABORATORY TEST: reviewed in detail. K was 5.7 pre dialysis ASSESSMENT AND PLAN: A 50-year-old male with longstanding diabetes with endstage renal disease on chronic hemodialysis Thursday, Thursday, Thursday, now admitted with complications of the PleurX catheter. Endstage renal disease, will get dialysis again on thu if still here---3hr 30 min 2 k bath and take 2.5 to 3 kilo off. We will not use heparin next session but then will start after that. Results & Data ([facility]) Vital Signs (Past 12 Hours) Vital Signs Temp Pulse Pulse Pulse Resp BP BP 07/22/21 15:34 36.8 C 80 18 128/66 07/22/21 12:00 125/61 07/22/21 10:40 73 87/45 L 07/22/21 10:20 73 91/45 L 07/22/21 10:15 72 69/43 L 07/22/21 10:00 72 82/51 L 07/22/21 09:40 77 112/77 07/22/21 09:20 77 144/71 H 07/22/21 09:10 36.5 C 77 07/22/21 08:00 36.8 C 73 76 18 145/69 H 07/22/21 04:05 36.6 C 65 16 114/61 Pulse Ox 07/22/21 15:34 97 07/22/21 12:00 07/22/21 10:40 07/22/21 10:20 07/22/21 10:15 07/22/21 10:00 07/22/21 09:40 02/14/22 09:20 07/22/21 09:10 07/22/21 08:00 97 07/22/21 04:05 98
--- NOTE | 2021-07-22 15:46 | Hospitalist Progress Note ---
Date of Service July 22, 2021 Assessment & Plan (1) Pleural effusion: Plan: Patient has a left-sided Pleurx catheter that was placed in January [address] Lazo for recurrent effusion, 2nd to ESRD initially, but now with possible loculated infection vs biofilm for current PleurX Seen in clinic 07/17/21 for concerns for infection, draining 200-300ml brown colored pleural fluid Q2-3 days compared to prior 100cc clearer fluid L Sided Empyema: - Appears etiology related to infected Pleur-x Catheter growing MSSA -- Day 6 of Antibiotics - will continue Ancef with plans to convert to orals to complete a 10-14 day course (likely 14 days) - Completed MIST II protocol - Pleur-x removed this afternoon. Plan for CXR in AM to assess for re- accumulation. Hopeful to avoid re-insertion at this time to allow for site and infection to heal. If re-accumulates may need pigtail but ultimately can be managed as outpatient and could consider outpatient referral to cardiothoracics if more definitive treatment is needed however unlikely needing acute transfer this admission -- Case previously discussed with [place] [facility] (Dr. 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 James in [place] on 07/25 (time TBD) - Nephrology on consult - appreciate assistance (5) Anemia of chronic disease: Plan: - Baseline hemoglobin between 10 and 12 g/Darrel - Procrit given with dialysis (6) CAD (coronary artery disease): Plan: - Underwent cardiac cath October 2018 which did not show any obstructive artery disease - Continue antihypertensives including amlodipine, carvedilol, and losartan - Continue statin - Not on ASA as per Cardio recommendation from 10/2018 -- Completed 6 months Coumadin for H/O PE/DVT - finished in May. (7) Diabetic gastroparesis: Plan: - No motility agents for home regimen; No current complaints of nausea or vomiting - Continue home antiemetics and provide supportive care - Moving bowels - monitor (8) GERD (gastroesophageal reflux disease): Plan: - Continue pantoprazole 40 mg BID (9) Diabetic ulcer of right foot: Plan: - Patient follows with the outpatient wound care clinic and was last seen 07/05/2021 and discharged from service - Area is calloused - follow-up outpatient as directed (10) Depression: Plan: - Continue Wellbutrin, Sertraline, and Lorazepam - Seroquel 25 mg at bedtime (11) DVT prophylaxis: Plan: - Patient currently is not on any home anticoagulation -- We will hold on chemical prophylaxis at this time pending further evaluation of Pleurx catheter and bloody drainage from catheter but patient is at high risk given recent DVT/PE and completed course of Coumadin in May SCDs/TEDs Plan: - CXR and reassessment in AM; plan to switch to oral Abx - Possible D/C next 1-2 days; Updated parents Admission and Anticipated Discharge Date Admission Date: July 17, 2021 Subjective No acute events overnight. Reports feeling better today compared to yesterday. Has not required anti-nausea medicine so far today. Had Pleur-X removed and tolerated well. Remains on RA. Completed dialysis session this AM. Denies CP or SOB. Tolerating a diet without issue Review of Systems Review of Systems: All systems reviewed & are unremarkable except as noted in Subjective Physical Exam Physical Exam: PHYSICAL EXAM General Appearance: WDWN in NAD who is A&O x 3 HEENT: Head is normocephalic/atraumatic; Hearing grossly intact; Mucous membranes moist; Pharynx negative for exudate/lesions Neck: Supple; Trachea midline Heart: RRR with no M/G/R Lungs: CTA in all lung garcia bilaterally; Respirations unlabored; Neg accessory muscle use Abdomen: Soft, non-tender, non-distended; Positive BS x 4 quadrants Extremities: Neg cyanosis or edema Neurological: Speech clear; Gross motor/sensory function intact; Neg focal neurologic deficits Psychiatric: Appropriate mood/affect Skin: Normal Color; Warm/Dry Results & Data Results & Data ([facility]) Vital Signs (Past 12 Hours) Vital Signs Temp Pulse Pulse Pulse Resp BP BP 07/22/21 15:34 36.8 C 80 18 128/66 07/22/21 12:00 125/61 07/22/21 10:40 73 87/45 L 07/22/21 10:20 73 91/45 L 07/22/21 10:15 72 69/43 L 07/22/21 10:00 72 82/51 L 07/22/21 09:40 77 112/77 07/22/21 09:20 77 144/71 H 07/22/21 09:10 36.5 C 77 07/22/21 08:00 36.8 C 73 76 18 145/69 H 07/22/21 04:05 36.6 C 65 16 114/61 Pulse Ox 07/22/21 15:34 97 07/22/21 12:00 07/22/21 10:40 07/22/21 10:20 07/22/21 10:15 07/22/21 10:00 07/22/21 09:40 07/22/21 09:20 07/22/21 09:10 07/22/21 08:00 97 07/22/21 04:05 98 PG Care Time/CCT Total # of Minutes Spent Total Time Spent with Patient: Total time spent is greater than 50% in coordination of care (as documented) at patient's floor/unit and/or counseling patient: Coding Level of Care Code 90065 Subseq Hosp Care Lvl 3 Diagnoses Pleural effusion J90 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 transplanted heart: [place] heart Diabetic gastroparesis E11.43; K31.84 GERD (gastroesophageal reflux disease) K21.9 Diabetic ulcer of right foot E11.621; L97.519 Depression F33.9 Active/Remission status: remission status unspecified Depression Type: major depressive disorder Major depression recurrence: recurrent DVT prophylaxis Z29.9 (1) CAD (coronary artery disease) Associated angina: without angina Coronary Disease-Associated Artery/Lesion type: [place] artery [place] vs. transplanted heart: [place] heart Qualified Code(s): I25.10 - Atherosclerotic heart disease of [place] coronary artery without angina pectoris (2) Depression Active/Remission status: remission status unspecified Depression Type: major depressive disorder Major depression recurrence: recurrent Qualified Code(s): F33.9 - Major depressive disorder, recurrent, unspecified
[2021-07-22] MEDS: ceFAZolin 1000MG 1,000 MG/7.5 ML SYR IV SCH (17:38)
[2021-07-22] MEDS: HYDROCODONE/ACETAMOPHEN 5/325MG TAB PO PRN (20:20)
[2021-07-22] MEDS: MELATONIN 3 MG TAB PO SCH (20:40)
[2021-07-22] MEDS: MIRTAZAPINE TAB 15 MG TAB PO SCH (20:41)
[2021-07-22] MEDS: QUEtiapine FUMARATE 25 MG TABLET PO SCH (20:42)
--- NOTE | 2021-07-23 07:39 | Pulmonology Progress Note ---
Date of Service July 23, 2021 Assessment & Plan (1) Cellulitis of chest wall: (2) Recurrent pleural effusion on left: Plan: Impression: 50-year-old male admitted with pain and discharge from Pleurx catheter on the left. Catheter was placed by Dr. Lazo in January 2021. Patient underwent 3 days of MIST II protocol. This was discontinued as patient's effusion appeared to be more serosanguineous. Cultures from around the catheter as well as pleural fluid positive for MSSA. Patient initially started on Zosyn and vancomycin. Continues on IV antibiotics with Ancef at this time. Recommendations: 1. Left-sided empyema: * Etiology appears to be infected Pleurx catheter on the left. * MSSA. Day #7 antibiotics. Recommend the patient complete 14 days antimicrobial therapy. Okay to transition to oral antibiotics at this point time. Will place on amoxicillin 500 mg daily. He should take the dose postdialysis on dialysis days. 2. Chest wall cellulitis: * Secondary to infected Pleurx catheter site * Antibiotics as noted above * Wound care nurse managing. 3. Recurrent pleural effusion: Patient will need to be followed clinically for reaccumulation of the pleural fluid. If it reaccumulate, consideration for referral to thoracic surgery for definitive video-assisted thoracoscopic evaluation and potential pleurodesis may be appropriate in the outpatient setting. Thank you for including us in the care of this patient. Patient appears stable at this point in time and can be dismissed from the hospital from pulmonary perspective. He can follow-up with Dr. Lazo in the outpatient setting. Will sign off. Call if questions Admission and Anticipated Discharge Date Admission Date: July 17, 2021 Subjective Patient seen and examined. EMR reviewed. The patient is sleeping supine comfortably. He arouses easily. He offers no complaints. He specifically denies chest pain cough sputum production or shortness of breath. His catheter site is dressed. He is not having any pain there. Has not had fevers overnight. Overall he feels well. Review of Systems Review of Systems: All systems reviewed & are unremarkable except as noted in Subjective Physical Exam Constitutional: WD/WN, vitals as above Neck: trachea midline, no thyromegaly Respiratory: normal respiratory effort, lungs clear to auscultation Cardiovascular: RRR, no murmur, no edema Chest (Breasts): Additional Comments: Catheter site with some crusted blood. Minimal erythema around the exit site. No expressible purulence. No pain to palpation Gastrointestinal (Abdomen): normal bowel sounds, soft, nontender, no hepatosplenomegaly Musculoskeletal: Extremities: extremities normal to inspection Skin: no rashes, warm and dry Neurologic: Nonfocal exam Lymphatic: no cervical lymphadenopathy Results & Data Results & Data ([facility]) Vital Signs (Past 12 Hours) Vital Signs Temp Pulse Pulse Resp BP Pulse Ox 07/23/21 07:28 72 07/23/21 03:29 36.6 C 69 18 111/58 L 95 07/22/21 23:10 36.4 C L 72 18 122/58 L 96 07/22/21 22:18 71 Laboratory Results 07/22/21 06:38 07/22/21 06:38 PG Care Time/CCT Total # of Minutes Spent Total Time Spent with Patient: Total time spent is greater than 50% in coordination of care (as documented) at patient's floor/unit and/or counseling patient: Coding Level of Care Code 86748 Subseq Hosp Care Lvl 2 Diagnoses Cellulitis of chest wall L03.313 Recurrent pleural effusion on left J90
[2021-07-23] MEDS: amLODIPine BESYLATE 5 MG TAB PO SCH (07:40)
[2021-07-23] MEDS: PANTOprazole 40 MG TAB PO SCH ×2 (07:40→20:24)
[2021-07-23] MEDS: carvediloL 25 MG TAB PO SCH ×2 (07:40→15:56)
[2021-07-23] MEDS: LOSARTAN POTASSIUM 50 MG TAB PO SCH (07:41)
[2021-07-23] MEDS: buPROPion SR 100 MG TABCR PO SCH (07:41)
[2021-07-23] MEDS: ATORVASTATIN 10 MG TAB PO SCH (07:41)
[2021-07-23] MEDS: NEPHROCAPS PO SCH (07:41)
[2021-07-23] MEDS: SERTRALINE HCL 100 MG TABLET PO SCH (07:41)
[2021-07-23] MEDS: PROCHLORPERAZINE MALEATE 5 MG TAB PO PRN (08:19)
[2021-07-23] MEDS: INSULIN ASPART PER UNIT SC SCH ×4 (08:22→20:22)
[2021-07-23] MEDS ORDERED: INSULIN GLARGINE SOLOSTAR 100 UNITS/ML 3 ML PEN SQ SCH (09:00)
[2021-07-23] MEDS: AMOXICILLIN 500 MG CAP PO SCH (09:51)
--- NOTE | 2021-07-23 10:17 | Nephrology Progress Note ---
Date of Service July 23, 2021 Assessment & Plan Admission and Anticipated Discharge Date Admission Date: July 17, 2021 Subjective Subjective S---Has Chronic Nausea and vomiting. Bloody discharge from pleural cath and has been removed yesterday, Had Dialysis but not enough UF removed because of Low BP PHYSICAL EXAMINATION: GENERAL: A middle-aged white male who appears comfortable at this time. He is not in any respiratory distress.On room air. He is awake, alert, oriented x3. HEENT: Mucous membranes are moist. NECK: Supple. No jugular venous distention. CHEST: Decreased breath sound in the left with some crackles. CARDIOVASCULAR: S1 and S2, regular. Systolic murmur heard. ABDOMEN: Soft, nontender. EXTREMITIES: Show no edema. NEUROLOGIC: Awake, alert, oriented x3. LABORATORY TEST: reviewed in detail. No labs today ASSESSMENT AND PLAN: A 50-year-old male with longstanding diabetes with endstage renal disease on chronic hemodialysis Thursday, Thursday, Thursday, now admitted with complications of the PleurX catheter. Endstage renal disease, will get dialysis again on thu if still here---3hr 30 min 2 k bath and take 2.5 to 3 kilo off. We will not use heparin next session but then will start after that. Labs for tomorrow ordered. Empyema--As per pulm. Catheter removed. On oral abx now. Results & Data ([facility]) Vital Signs (Past 12 Hours) Vital Signs Temp Pulse Pulse Pulse Resp BP Pulse Ox 07/23/21 08:11 36.7 C 75 20 154/73 H 96 07/23/21 07:28 72 07/23/21 03:29 36.6 C 69 18 111/58 L 95 07/22/21 23:10 36.4 C L 72 18 122/58 L 96 07/22/21 22:18 71
[2021-07-23] MEDS: PROCHLORPERAZINE 10 MG in SYRINGE 8 ML IV PRN ×2 (10:32→17:25)
--- NOTE | 2021-07-23 11:38 | XRay Report ---
XR chest 1V portable HISTORY: 50 years-old Male removal of left pleurex, L pl effusion follow-up study in a patient with left pleural effusion COMPARISON: Chest radiograph 07/22/2021 TECHNIQUE: AP view of the chest FINDINGS: Cardiomediastinal and hilar silhouettes are unchanged. Small residual left pleural effusion with mild left lung base opacities. Interval removal of the left-sided chest tube. No pneumothorax identified. The right lung is clear. Bones appear grossly intact. IMPRESSION: 1. Interval removal of the left-sided chest tube. No pneumothorax. 2. Unchanged small left pleural effusion with left basilar atelectasis. ACT 112: Negative or not required by law. The above report was generated using voice recognition software. It may contain grammatical, syntax o r spelling errors. Electronically signed by: Justus Martinez M.D. 07/23/2021 11:36 AM
[2021-07-23] MEDS: LORazepam 0.5 MG TAB PO PRN (11:56)
[2021-07-23] MEDS ORDERED: FAMOTIDINE 20 MG in SYRINGE 3 ML IV ONE (13:16)
[2021-07-23] MEDS ORDERED: METOCLOPRAMIDE HCL INJ 5 MG/ML 2 ML VIAL IV STA (13:16)
--- NOTE | 2021-07-23 14:55 | Pharmacy Report ---
Pharmacy Glycemic Short Note 2 - Date of Service July 23, 2021 - Glycemic Short BSG Results (Last 24 hours): 07/22/21 07/22/21 07/23/21 16:53 20:24 07:26 POC Glucose 143 H 197 H 290 H 07/23/21 11:43 POC Glucose 262 H OUTPATIENT ANTIDIABETIC REGIMEN: * Basaglar 16 units SQ AM * NovoLog TIDM, CF 45, CR 10, about 30 units/day ASSESSMENT: 07/23/21 * Patient received total of 20 units of insulin yesterday, of which 12 units were basal * Fasting BSG elevated, will increase basal ~10% this AM * BSGs labile, will see how BSGs trend today before making any more changes 07/20/21 * Patient's BSGs yesterday were 136-88-152 mg/dL. (no lunch BSG since at dialysis). * Patient received 12 units of insulin yesterday (all basal no bolus). * Fasting today is 118 mg/dL. Decrease Lantus by 1 unit to 11 units since fasting trending downwards significantly. * If PO intake does not improve, patient may need dextrose infusion since he is a type 1. 07/19/21 * Patient's BSGs yesterday were 032-353-715-126 mg/dL. Patient received 13 units of insulin yesterday (12 units of basal and 1 unit of bolus). * Fasting today is 136 mg/dL. * Continue current regimen. Consideration to switch to NPH if BSGs become uncontrolled. Background * 50 year old male admitted with possible infected Pleur-X catheter, started on IV Vanc + Zosyn. * Type 1 diabetic, ESRD on HD MWF, known to pharmacy glycemic service. Started on Lantus + NovoLog on admission, have had good glycemic control on regular + NPH insulin in the past while inpatient, will consider switch to those if inadequate control. * Begin with reduced home dose of basal, BSG on admission 57mg/dl. PLAN FOR INPATIENT GLYCEMIC CONTROL: * Hold outpatient oral diabetes medications * Basal insulin - increase * Lantus 13 units SQ daily * Bolus insulin * NovoLog per scale ACHS or Q6hrs while NPO * Goal Range: Low 110 mg/dL - High 160 mg/dL - for type 1 DM on HD * Correction Factor: 35 mg/dL/unit * Nutritional / Prandial insulin per carb ratio of 1 unit per 10 grams CHO consumed PLAN FOR DISCHARGE: * Patient's A1c = 7.1% 05/07/21, new A1c pending * However, this result is likely somewhat unreliable in ESRD patients d/t interactions between the A1c analyzing technique and high levels of urea in ESRD, reduced RBC life span, iron deficiency anemia, and EPO administration. * Continue home regimen and adjust based on SMBG.
[2021-07-23] MEDS ORDERED: diphenhydrAMINE 50 MG/ML VIAL IV STA (16:11)
--- NOTE | 2021-07-23 18:29 | Hospitalist Progress Note ---
Date of Service July 23, 2021 Assessment & Plan (1) Pleural effusion: Plan: Patient has a left-sided Pleurx catheter that was placed in January [address] Lazo for recurrent effusion, 2nd to ESRD initially, but now with possible loculated infection vs biofilm for current PleurX Seen in clinic 07/17/21 for concerns for infection, draining 200-300ml brown colored pleural fluid Q2-3 days compared to prior 100cc clearer fluid L Sided Empyema: - Appears etiology related to infected Pleur-x Catheter growing MSSA -- Day 7 of Antibiotics - convert Ancef to Amoxicillin to complete 14 days total treatment - Completed MIST II protocol - Pleur-x removed on 07/22. CXR without re-accumulation at this time. Hopeful to avoid re-insertion at this time to allow for site and infection to heal. If re- accumulates may need pigtail but ultimately can be managed as outpatient and could consider outpatient referral to cardiothoracics if more definitive treatment is needed. Unlikely needing acute transfer this admission -- Case previously discussed with [facility] (Dr. 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 States this commonly follows this course of one day on and off of vomiting and normally nothing stops it -- Trial Benadryl with Compazine -- Did have some burning CP and added Pepcid; EKG obtained with NSR and no acute ischemic findings - Continue with antiemetics PRN (4) ESRD (end stage renal disease): Plan: - HD M/W/F - Patient scheduled for dialysis fistulogram with Dr. James in [place] on 07/25 (time TBD) - Nephrology on consult - appreciate assistance (5) Anemia of chronic disease: Plan: - Baseline hemoglobin between 10 and 12 g/Darrel - Procrit given with dialysis (6) CAD (coronary artery disease): Plan: - Underwent cardiac cath October 2018 which did not show any obstructive artery disease - Continue antihypertensives including amlodipine, carvedilol, and losartan - Continue statin - Not on ASA as per Cardio recommendation from 10/2018 -- Completed 6 months Coumadin for H/O PE/DVT - finished in May. (7) Diabetic gastroparesis: Plan: - No motility agents for home regimen; Takes Remeron and reports this helps - Continue home antiemetics and provide supportive care - Moving bowels - monitor (8) GERD (gastroesophageal reflux disease): Plan: - Continue pantoprazole 40 mg BID (9) Diabetic ulcer of right foot: Plan: - Patient follows with the outpatient wound care clinic and was last seen 07/05/2021 and discharged from service - Area is calloused - follow-up outpatient as directed (10) Depression: Plan: - Continue Wellbutrin, Sertraline, and Lorazepam - Seroquel 25 mg at bedtime (11) DVT prophylaxis: Plan: - Patient currently is not on any home anticoagulation -- We will hold on chemical prophylaxis at this time pending further evaluation of Pleurx catheter and bloody drainage from catheter but patient is at high risk given recent DVT/PE and completed course of Coumadin in May SCDs/TEDs Plan: - Possible D/C next 1-2 days pending cyclic vomiting control; Updated parents Admission and Anticipated Discharge Date Admission Date: July 17, 2021 Subjective No acute events overnight. Nausea was non-existent yesterday but continues with this today. He reports this is commonly how the cycles happen and will occur for a few days then stop. Mostly just dry heaves in the afternoon. States sometimes Benadryl helps and will try that with the Compazine. Review of Systems Review of Systems: All systems reviewed & are unremarkable except as noted in Subjective Physical Exam Physical Exam: PHYSICAL EXAM General Appearance: WDWN in mild distress due to dry heaves/vomiting who is A&O x 3 HEENT: Head is normocephalic/atraumatic; Hearing grossly intact Neck: Supple; Trachea midline Heart: RRR with no M/G/R Lungs: CTA in all lung garcia bilaterally; Respirations unlabored; Neg accessory muscle use Abdomen: Soft, non-tender, non-distended; Positive BS x 4 quadrants Extremities: Neg cyanosis or edema Neurological: Speech clear; Gross motor/sensory function intact; Neg focal neurologic deficits Psychiatric: Appropriate mood/affect Skin: Normal Color; Warm/Dry Results & Data Results & Data ([facility]) Vital Signs (Past 12 Hours) Vital Signs Temp Pulse Pulse Pulse Resp BP Pulse Ox 07/23/21 15:59 36.5 C 77 20 174/62 H 98 07/23/21 14:59 76 07/23/21 11:51 36.4 C L 77 20 180/68 H 99 07/23/21 10:39 36.8 C 07/23/21 08:11 36.7 C 75 20 154/73 H 96 07/23/21 07:28 72 PG Care Time/CCT Total # of Minutes Spent Total Time Spent with Patient: Total time spent is greater than 50% in coordination of care (as documented) at patient's floor/unit and/or counseling patient: Coding Level of Care Code 88825 Subseq Hosp Care Lvl 3 Diagnoses Pleural effusion J90 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, with long-term current use of insulin E10.29 Cyclic vomiting syndrome R11.15 ESRD (end stage renal disease) N18.6 Anemia of chronic disease D63.8 CAD (coronary artery disease) I25.10 Coronary Disease-Associated Artery/Lesion type: [place] artery [place] vs. transplanted heart: sioux heart Associated angina: without angina Diabetic gastroparesis E11.43; K31.84 GERD (gastroesophageal reflux disease) K21.9 Diabetic ulcer of right foot E11.621; L97.519 Depression F33.9 Depression Type: major depressive disorder Major depression recurrence: recurrent Active/Remission status: remission status unspecified DVT prophylaxis Z29.9 (1) CAD (coronary artery disease) Coronary Disease-Associated Artery/Lesion type: [place] artery [place] vs. transplanted heart: sioux heart Associated angina: without angina Qualified Code(s): I25.10 - Atherosclerotic heart disease of sioux coronary artery without angina pectoris (2) Depression Depression Type: major depressive disorder Major depression recurrence: recurrent Active/Remission status: remission status unspecified Qualified Code(s): F33.9 - Major depressive disorder, recurrent, unspecified
[2021-07-23] MEDS: ONDANSETRON 4 MG OD TAB PO PRN (19:29)
[2021-07-23] MEDS: MIRTAZAPINE TAB 15 MG TAB PO SCH (20:23)
[2021-07-23] MEDS: MELATONIN 3 MG TAB PO SCH (20:23)
[2021-07-23] MEDS: QUEtiapine FUMARATE 25 MG TABLET PO SCH (20:25)
[2021-07-24] MEDS: PROCHLORPERAZINE 10 MG in SYRINGE 8 ML IV PRN (01:23)
[2021-07-24 06:16] LABS: Basophils # (auto) 0.02 K/uL (0-0.2); Basophils % (auto) 0.2 %; Eosinophils # (auto) 0.14 K/uL (0-0.5); Eosinophils % (auto) 1.1 %; Hematocrit (blood only) 32.7 % (42-52); Hemoglobin 10.5 g/dL (14.0-18.0); Immature Granulocytes # (auto) 0.16 K/uL (0.00-0.02); Immature Granulocytes % (auto) 1.2 %; Lymphocytes # (auto) 1.06 K/uL (1.2-3.4); Lymphocytes % (auto) 8.2 %; Mean Corpuscular Hemoglobin 32.8 pg (25-34); Mean Corpuscular Hgb Conc 32.1 g/dL (32-36); Mean Corpuscular Volume 102.2 fL (80-100); Mean Platelet Volume 8.2 fL (7.4-10.4); Monocytes # (auto) 1.14 K/uL (0.11-0.59); Monocytes % (auto) 8.8 %; Neutrophils % (auto) 80.5 %; Platelet Count 508 K/uL (130-400); RDW Coefficient of Variation 12.8 % (11.5-14.5); RDW Standard Deviation 47.2 fL (36.4-46.3); White Blood Count 12.92 K/uL (4.8-10.8)
[2021-07-24 06:36] LABS: Albumin Level 3.1 gm/dl (3.4-5.0); BUN Creatinine Ratio 6.8 (10-20); Calcium 7.5 mg/dl (8.5-10.1); Est GFR (Non-African American) 6.1 ml/min; Phosphorus 7.7 mg/dl (2.5-4.9); Potassium 4.8 mmol/L (3.5-5.1)
[2021-07-24] MEDS ORDERED: EPOETIN ALFA 10,000 UNITS/ML VIAL IV ONE (07:00)
[2021-07-24] MEDS ORDERED: SODIUM CHLORIDE 0.9% 1000ML 1,000 ML IV PRN (07:00)
[2021-07-24] MEDS: INSULIN ASPART PER UNIT SC SCH ×3 (08:27→18:32)
[2021-07-24] MEDS: ONDANSETRON 4 MG OD TAB PO PRN (08:31)
[2021-07-24] MEDS: LORazepam 0.5 MG TAB PO PRN (08:31)
[2021-07-24] MEDS ORDERED: FAMOTIDINE 20 MG in SYRINGE 3 ML IV SCH (09:00)
[2021-07-24] MEDS ORDERED: INSULIN GLARGINE SOLOSTAR 100 UNITS/ML 3 ML PEN SQ SCH (09:00)
[2021-07-24] MEDS: carvediloL 25 MG TAB PO SCH ×2 (09:53→18:10)
[2021-07-24] MEDS: AMOXICILLIN 500 MG CAP PO SCH (09:54)
[2021-07-24] MEDS: ATORVASTATIN 10 MG TAB PO SCH (09:54)
[2021-07-24] MEDS: SERTRALINE HCL 100 MG TABLET PO SCH (09:54)
[2021-07-24] MEDS: NEPHROCAPS PO SCH (09:54)
[2021-07-24] MEDS: buPROPion SR 100 MG TABCR PO SCH (09:54)
[2021-07-24] MEDS: amLODIPine BESYLATE 5 MG TAB PO SCH (09:54)
[2021-07-24] MEDS: PANTOprazole 40 MG TAB PO SCH (09:54)
[2021-07-24] MEDS: LOSARTAN POTASSIUM 50 MG TAB PO SCH (09:54)
--- NOTE | 2021-07-24 11:48 | Nephrology Progress Note ---
Date of Service July 24, 2021 Assessment & Plan (1) ESRD (end stage renal disease): Plan: Continue Thursday hemodialysis. Last treatment was remarkable for diminished UF due to hypotension. For 10,000 units of EPO with today's treatment and 2K bath (2) Empyema lung: Plan: On oral antibiotics now to complete 14-day course; Pleurx removed July 22; and for outpatient pulmonary follow-up late August Admission and Anticipated Discharge Date Admission Date: July 17, 2021 Subjective stillw/ GI upset; feels a bit better overall though; no sob Review of Systems Review of Systems: All systems reviewed & are unremarkable except as noted in Subjective Physical Exam Constitutional: well developed and well nourished; no acute distress Eyes: EOM intact bilaterally ENMT: Ears: no external ear abnormality Nose: no external nose abnormality Mouth: + dry oral mucous membranes Neck: no nuchal rigidity Respiratory: normal respiratory effort Auscultation: + diminished lung soun ds (silvino L base) Cardiovascular: Rate/Rhythm: regular rate and regular rhythm Extremities: + AV fistula (+ t/b); no edema Gastrointestinal (Abdomen): Inspection/Auscultation: normal bowel sounds Percussion/Palpation: abdomen soft; abdomen nontender Musculoskeletal: Extremities: strength 5/5 throughout Skin: no rashes, warm and dry Neurologic: spicer, fluent speech, no tremor Psychiatric: Orientation: oriented x 3 Results & Data ([facility]) Vital Signs (Past 12 Hours) Vital Signs Temp Pulse Pulse Resp BP Pulse Ox 07/24/21 11:01 36.6 C 77 14 132/58 L 95 07/24/21 08:12 72 07/24/21 07:48 36.8 C 79 16 153/72 H 98 07/24/21 03:00 36.9 C 70 16 110/58 L 96 Laboratory Results 07/24/21 05:37 07/24/21 05:37
--- NOTE | 2021-07-24 13:22 | Pharmacy Report ---
Pharmacy Glycemic Short Note 2 - Date of Service July 24, 2021 - Glycemic Short BSG Results (Last 24 hours): 07/23/21 07/23/21 07/24/21 16:49 20:03 05:37 Glucose 273 H POC Glucose 193 H 166 H 07/24/21 07/24/21 07/24/21 07:51 07:52 11:40 Glucose POC Glucose 301 H* 299 H 299 H OUTPATIENT ANTIDIABETIC REGIMEN: * Basaglar 16 units SQ AM * NovoLog TIDM, CF 45, CR 10, about 30 units/day ASSESSMENT: 07/24/21 * Jorge Alberto received 22 units of insulin yesterday (13 units basal, 9 units novolog) * Fasting BSG remains elevated (273 mg/dL). Will again increase basal dose by 1 unit. If no improvement on 07/25, may need to consider changing to BID dosing of Lantus. * No change to novolog orders. Patient consuming minimal carbs and BSG trending downward throughout the day. 07/23/21 * Patient received total of 20 units of insulin yesterday, of which 12 units were basal * Fasting BSG elevated, will increase basal ~10% this AM * BSGs labile, will see how BSGs trend today before making any more changes 07/20/21 * Patient's BSGs yesterday were 136-88-152 mg/dL. (no lunch BSG since at dialysis). * Patient received 12 units of insulin yesterday (all basal no bolus). * Fasting today is 118 mg/dL. Decrease Lantus by 1 unit to 11 units since fasting trending downwards significantly. * If PO intake does not improve, patient may need dextrose infusion since he is a type 1. 07/19/21 * Patient's BSGs yesterday were 139-603-700-126 mg/dL. Patient received 13 units of insulin yesterday (12 units of basal and 1 unit of bolus). * Fasting today is 136 mg/dL. * Continue current regimen. Consideration to switch to NPH if BSGs become uncontrolled. Background * 50 year old male admitted with possible infected Pleur-X catheter, started on IV Vanc + Zosyn. * Type 1 diabetic, ESRD on HD MWF, known to pharmacy glycemic service. Started on Lantus + NovoLog on admission, have had good glycemic control on regular + NPH insulin in the past while inpatient, will consider switch to those if inadequate control. * Begin with reduced home dose of basal, BSG on admission 57mg/dl. PLAN FOR INPATIENT GLYCEMIC CONTROL: * Hold outpatient oral diabetes medications * Basal insulin - increase * Lantus 14 units SQ daily * Bolus insulin * NovoLog per scale ACHS or Q6hrs while NPO * Goal Range: Low 110 mg/dL - High 160 mg/dL - for type 1 DM on HD * Correction Factor: 35 mg/dL/unit * Nutritional / Prandial insulin per carb ratio of 1 unit per 10 grams CHO consumed PLAN FOR DISCHARGE: * Patient's A1c = 7.1% 05/07/21, new A1c pending * However, this result is likely somewhat unreliable in ESRD patients d/t interactions between the A1c analyzing technique and high levels of urea in ESRD, reduced RBC life span, iron deficiency anemia, and EPO administration. * Continue home regimen and adjust based on SMBG.
--- NOTE | 2021-07-24 13:54 | Electrocardiogram Report ---
Test Reason : Blood Pressure : / mmHG Vent. Rate : 073 BPM Atrial Rate : 073 BPM P-R Int : 208 ms QRS Dur : 108 ms QT Int : 432 ms P-R-T Axes : 061 089 065 degrees QTc Int : 475 ms Normal sinus rhythm Minimal voltage criteria for LVH, may be normal variant Borderline ECG When compared with ECG of 25-APR-2021 15:32, Nonspecific T wave abnormality no longer evident in Inferior leads Confirmed by Alex Gracia [id number] on 07/24/2021 1:54:00 PM Referred By: Johnson Lazo Confirmed By:Alex Gracia
--- NOTE | 2021-07-24 18:42 | Discharge Summary ---
Date of Service July 24, 2021 Admission HPI Per Admitting Provider Attending Dr. Townsend This is a 50-year-old male with a past medical history including type I controlled diabetes, chronic right foot ulcer, cyclic vomiting, end-stage renal disease on hemodialysis, GERD, hypertension, nonischemic cardiomyopathy, diabetic gastroparesis, peripheral neuropathy, retinopathy due to diabetes, lumbar radiculopathy, chronic anemia of chronic disease, CAD. Patient called into the outpatient office with complaints of pain and discharge around his left Pleurx catheter site. Patient was brought into the emergency department for evaluation. Patient was seen by Dr. Lazo in room D9. Pleurx catheter was drained and showed exudative appearing fluid. There is also evidence of tenderness and erythema as well as some pussy discharge around the Pleurx catheter insertion site. Patient was afebrile with a T-max of 37 F. He was hemodynamically stable. He was oxygenating well on room air. Patient be admitted for IV antibiotics for probable empyema. Patient denies fever, chills, sweats, rigors. He has no cough. He does have pain around the left Pleurx site. He has no recent travel. He has no recent contact with Covid positive patients. Patient is a non-smoker Principal Diagnosis Empyema Discharge Exam PHYSICAL EXAM General Appearance: WDWN in mild distress due to dry heaves/vomiting who is A&O x 3 HEENT: Head is normocephalic/atraumatic; Hearing grossly intact Neck: Supple; Trachea midline Heart: RRR with no M/G/R Lungs: CTA in all lung garcia bilaterally; Respirations unlabored; Neg accessory muscle use Abdomen: Soft, non-tender, non-distended; Positive BS x 4 quadrants Extremities: Neg cyanosis or edema Neurological: Speech clear; Gross motor/sensory function intact; Neg focal neurologic deficits Psychiatric: Appropriate mood/affect Skin: Normal Color; Warm/Dry Discharge Data Allergies Allergy/AdvReac Type Severity Reaction Status Date / Time shellfish derived Allergy Severe anaphylaxis Verified 07/17/21 14:47 codeine Allergy Intermediate Hives Verified 07/17/21 14:47 promethazine Allergy Intermediate itchy/hives Verified 07/17/21 14:47 Consultations 07/17/21 13:10 Consult Pulmonology Routine 07/17/21 16:27 Consult Nephrology Routine Ordered Studies Chest X-Ray 07/17/21 13:03 XR chest 1V portable CLINICAL HISTORY: Left pleurX catheter COMPARISON STUDY: Chest radiograph performed earlier today. FINDINGS: Left basilar pleural catheter is in place. Small left pleural effusion has slightly decreased in size since prior exam. There is associated left basilar opacity. No pneumothorax is present. Mild cardiomegaly is unchanged. IMPRESSION: Left basilar pleural catheter in place. Small left pleural effusion, slightly decreased in size since prior exam. No pneumothorax. ACT 112: Negative or not required by law. Electronically signed by: Gabino Cool M.D. 07/17/2021 1:[address] 07/18/21 07:54 CT chest diagnostic wo con CT DOSE: 205.83 mGy.cm HISTORY: pleural effusion, chest wall infection TECHNIQUE: Multiaxial CT images of the chest were performed without contrast. A dose lowering technique was utilized adhering to the principles of ALARA. COMPARISON: Abdomen and pelvis CT 03/04/2021. FINDINGS: The central airways are patent. There is a 5 mm nodule within the base of the left lower lobe on image 204. Patchy densities at the left lung base are nonspecific but favor atelectasis. A pneumonia could also have a similar appearance in the appropriate clinical setting. There is a small partially loculated left pleural effusion the left lung base. This extends into the left major fissure. There is a partially visualized left basilar pleural catheter which appears in good position. No evidence for extension of the fluid into the chest wall. Limited views of the upper abdomen demonstrate a normal liver and spleen. Normal esophagus. Multiple subcentimeter mediastinal lymph nodes do not meet CT criteria for pathologic involvement. No hilar lymphadenopathy. Normal caliber thoracic aorta. Mild calcified plaque within the coronary arteries. The heart is mildly enlarged. Mild bilateral gynecomastia is noted. No pneumothorax. A few bibasilar linear densities favor subsegmental atelectasis. Chronic T11 and T12 superior endplate compression deformities remain unchanged. No acute fractures identified within the chest. IMPRESSION: 1. There is a small partially loculated left basilar pleural effusion with an associated pleural catheter. No evidence for chest wall extension of the pleural fluid. 2. No pneumothorax. 3. A 5 mm indeterminate pulmonary nodule within left lower lobe. 4. Mild cardiomegaly. 5. Patchy bibasilar densities, left greater than right, favor atelectasis. A pneumonia could also a similar appearance in the appropriate clinical setting. Please refer to below summary of Fleischner criteria recommendations for follow- up of incidental CT nodules (Adan Haley, Guidelines for management of small pulmonary nodules detected on CT scans: A statement from the Fleischner Society, Radiology 237: [phone].) SOLID NODULES Solitary nodule size: <6 mm * Low risk patients: no follow-up needed * high risk patients: optional CT at 12 months Solitary nodule size: 6-8 mm * Low risk patients: follow-up at 6-12 months, then consider further follow-up at 18-24 months * high risk patients: initial follow-up CT at 6-12 months and then at 18-24 months if no change Solitary nodule size: >8 mm * either low or high risk patients - consider follow-up CT at 3 months, and/or CT-PET, and/or biopsy Multiple nodules size: <6 mm * Low risk patients: no routine follow-up * high risk patients: optional CT at 12 months Multiple nodules size: 6-8 mm * Low risk patients: follow-up at 3-6 months, then consider further follow-up at 18-24 months * high risk patients: follow-up at 3-6 months, then at 18-24 months if no change Multiple nodules size: >8 mm * Low risk patients: follow-up at 3-6 months, then consider further follow-up at 18-24 months * high risk patients: follow-up at 3-6 months, then at 18-24 months if no change Note: newly detected indeterminate nodule in persons 35 years of age or older. * Low risk patients: minimal or absent history of smoking and/or other known risk factors * high risk patients: history of smoking or of other known risk factors (e.g. first degree relative with lung cancer, or exposure to asbestos, radon, uranium) * if a nodule up to 8 mm is partly solid or is ground glass further follow-up is required after 24 months to exclude possible slow growing adenocarcinoma (DARIAN) SUBSOLID NODULES Solitary pure ground-glass nodule * nodule size <6 mm - no CT follow-up required * nodule size >=6 mm - follow-up CT at 6-12 months, then every 2 years until 5 years Solitary part-solid nodule * nodule size <6 mm - no CT follow-up required * nodule size >=6 mm - follow-up CT at 3-6 months. If unchanged, and solid component remains <6 mm, then annual follow-up for 5 years Multiple subsolid nodules * nodule size <6 mm - follow-up CT at 3-6 months, consider further follow-up at 2 and 4 years if stable * nodule size >=6 mm - follow-up CT at 3-6 months, subsequent management based on the most suspicious nodule(s) ACT 112: Negative or not required by law. Electronically signed by: Cristiano Brown M.D. 07/18/2021 9:23 AM Chest X-Ray 07/18/21 08:00 XR chest 1V not portable CLINICAL HISTORY: Left pleurX cathter/effusion COMPARISON STUDY: Chest radiograph July 17, 2021. Chest CT performed earlier today. FINDINGS: Left pleural catheter remains in place. Small left pleural effusion has slightly decreased in size. There is associated left basilar opacity. There is no pneumothorax. Cardiomegaly is again noted. IMPRESSION: Left basilar pleural catheter in place. Slight decrease in size of a small left pleural effusion. No pneumothorax. ACT 112: Negative or not required by law. Electronically signed by: Gabino Cool M.D. 07/18/2021 12:48 PM Chest X-Ray 07/18/21 16:56 XR chest 1V portable at 5:35 PM CLINICAL HISTORY: s/p drainage. Left pleural effusion with left pleural catheter COMPARISON STUDY: 07/18/2021 at 10:59 AM TECHNIQUE: 1 view of the chest FINDINGS: Single frontal view of the chest demonstrates the cardiomediastinal silhouette to be within normal limits. The lungs are clear of alveolar opacities. Compared to previous examination, there is again a small left pleural effusion with left- sided chest tube in place. The effusion appears smaller than on the previous study. There is no evidence for pneumothorax. There is no evidence for vascular congestion. There is no acute osseous pathology. IMPRESSION: Evidence for decreased left pleural effusion with no evidence for pneumothorax. Otherwise, no acute chest disease. ACT 112: Negative or not required by law. Electronically signed by: Luke Conroy M.D. 07/18/2021 9:38 PM Chest X-Ray 07/19/21 09:09 XR chest 1V portable CLINICAL HISTORY: Follow up left pleural effusion and left-sided chest tube. COMPARISON STUDY: 07/18/2021 TECHNIQUE: 1 view of the chest FINDINGS: Single frontal view of the chest demonstrates the cardiomediastinal silhouette to be within normal limits. Compared to previous examination, there is small residual left pleural effusion is again seen along with chest tube in the left lung base. There is again no evidence for pneumothorax. The lungs are clear of alveolar opacities. There is no evidence for right pleural effusion. There is no evidence for vascular congestion. There is no acute osseous pathology. IMPRESSION: No change in very small left pleural effusion with no evidence for pneumothorax. Left-sided chest tube is again seen at the lung bases. ACT 112: Negative or not required by law. Electronically signed by: Luke Conroy M.D. 07/19/2021 9:48 AM Chest X-Ray 07/20/21 06:57 XR chest 1V portable HISTORY: Follow up pleural effusion COMPARISON: Chest 07/19/2021. FINDINGS: No pneumothorax. The heart remains enlarged. Left basilar pleural catheter is unchanged in position. Small left pleural effusion and left base airspace opacity has slightly progressed. The right lung is clear. IMPRESSION: Slight progression of the small left pleural effusion and left basilar airspace opacity. The left pleural catheter is unchanged in position. ACT 112: Negative or not required by law. Electronically signed by: Cristiano Brown M.D. 07/20/2021 7:44 AM Chest X-Ray 07/20/21 18:27 XR chest 1V portable HISTORY: Pleural effusion. Follow-up. COMPARISON: Chest 07/20/2021. FINDINGS: Small left pleural effusion and left basilar densities have improved in the interval. A left basilar pleural catheter remains unchanged in position. No pneumothorax. The right lung is clear. The heart remains enlarged. No evidence for pulmonary edema. IMPRESSION: Decrease in size in the small left pleural effusion. The left basilar pleural catheter is unchanged in position. ACT 112: Negative or not required by law. Electronically signed by: Cristiano Brown M.D. 07/20/2021 6:57 PM Chest X-Ray 07/21/21 08:21 XR chest 1V portable CLINICAL HISTORY: follow up TECHNIQUE: Single frontal radiograph of the chest was obtained. Comparison: Comparison is made to chest one view 07/20/2021 FINDINGS: A left pleural catheter is again seen. The cardiomediastinal silhouette is normal. Again noted is airspace opacity in the left lower lobe. Blunting of the left costophrenic angle is again seen. IMPRESSION: No significant change in left pleural effusion with underlying airspace opacity which likely reflects atelectasis. ACT 112: Negative or not required by law. Electronically signed by: Maninder Cohen M.D. 07/21/2021 9:08 AM Chest X-Ray 07/21/21 12:59 XR chest 1V portable CLINICAL HISTORY: follow up effusion TECHNIQUE: Single frontal radiograph of the chest was obtained. Comparison: Comparison is made to chest one view 07/21/2021 FINDINGS: Lines and tubes are stable. The cardiomediastinal silhouette is normal. There is a left pleural effusion. Left lower lobe airspace opacity is seen. IMPRESSION: Stable left pleural effusion with associated atelectasis. ACT 112: Negative or not required by law. Electronically signed by: Maninder Cohen M.D. 07/21/2021 1:55 PM Chest X-Ray 07/22/21 09:03 SINGLE VIEW CHEST CLINICAL HISTORY: Pleural effusion FINDINGS: An AP, portable, upright chest radiograph is compared to study dated 07/21/2021 and correlated with chest CT dated 07/18/2021. The heart is enlarged. The pulmonary vasculature is noncongested. Chronic interstitial thickening is similar to previous. A chest tube is again seen at the left lung base. A small residual left pleural effusion with left basilar consolidation is unchanged. The right lung appears clear. No pneumothorax is seen. The skeletal structures are osteopenic. The bony thorax is grossly intact. IMPRESSION: 1. A left-sided chest tube is unchanged in position. 2. A small residual left pleural effusion with left basilar consolidation is unchanged. 3. Cardiomegaly. ACT 112: Negative or not required by law. Electronically signed by: Dev Burden M.D. 07/22/2021 1:12 PM Chest X-Ray 07/23/21 10:54 XR chest 1V portable HISTORY: 50 years-old Male removal of left pleurex, L pl effusion follow-up study in a patient with left pleural effusion COMPARISON: Chest radiograph 07/22/2021 TECHNIQUE: AP view of the chest FINDINGS: Cardiomediastinal and hilar silhouettes are unchanged. Small residual left pleural effusion with mild left lung base opacities. Interval removal of the left-sided chest tube. No pneumothorax identified. The right lung is clear. Bones appear grossly intact. IMPRESSION: 1. Interval removal of the left-sided chest tube. No pneumothorax. 2. Unchanged small left pleural effusion with left basilar atelectasis. ACT 112: Negative or not required by law. The above report was generated using voice recognition software. It may contain grammatical, syntax or spelling errors. Electronically signed by: Justus Martinez M.D. 07/23/2021 11:36 AM Hospital Course (1) Pleural effusion: Patient has a left-sided Pleurx catheter that was placed in January [address] Lazo for recurrent effusion, 2nd to ESRD initially, but now with possible loculated infection vs biofilm for current PleurX Seen in clinic 07/17/21 for concerns for infection, draining 200-300ml brown colored pleural fluid Q2-3 days compared to prior 100cc clearer fluid L Sided Empyema: - Appears etiology related to infected Pleur-x Catheter growing MSSA --Converted Ancef to Amoxicillin to complete 14 days total treatment - dosing of Amoxicillin after dialysis on days he has treatment - Completed MIST II protocol - Pleur-x removed on 07/22. CXR without re-accumulation at this time. Hopeful to avoid re-insertion at this time to allow for site and infection to heal. If re- accumulates may need pigtail but ultimately can be managed as outpatient and could consider outpatient referral to cardiothoracics if more definitive treatment is needed -- Case previously discussed with [facility] (Dr. Acosta) - Pulmonary followed - discussed with Dev Negrete - plan for outpatient F/U - scheduled for 05 September (2) 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, with long-term current use of insulin: - A1c 7.2 - Continue home regimen (3) Cyclic vomiting syndrome: - Seems that dialysis assists with this - maybe due to uremia? - Continue with antiemetics PRN (4) ESRD (end stage renal disease): - HD M/W/F - Patient scheduled for dialysis fistulogram with Dr. James in [place] on 07/25 (time TBD) - Nephrology was consulted - appreciated assistance (5) Anemia of chronic disease: - Baseline hemoglobin between 10 and 12 g/Darrel - Procrit given with dialysis (6) CAD (coronary artery disease): - Underwent cardiac cath October 2018 which did not show any obstructive artery disease - Continue antihypertensives including amlodipine, carvedilol, and losartan - Continue statin - Not on ASA as per Cardio recommendation from 10/2018 -- Completed 6 months Coumadin for H/O PE/DVT - finished in May. (7) Diabetic gastroparesis: - No motility agents for home regimen; Takes Remeron and reports this helps - Continue home antiemetics and provide supportive care - Moving bowels (8) GERD (gastroesophageal reflux disease): - Continue pantoprazole 40 mg BID (9) Diabetic ulcer of right foot: - Patient follows with the outpatient wound care clinic and was last seen 07/05/2021 and discharged from service - Area is calloused - follow-up outpatient as directed (10) Depression: - Continue Wellbutrin, Sertraline, and Lorazepam - Seroquel 25 mg at bedtime - Follow-up with Pulmonology in August or sooner if issues - will need to monitor for fluid reaccumulation Total Time Total Time Spent Total Time Spent (In Minutes): Spent greater than 30 minutes preparing patient for discharge. This includes discussion with patient/family, assessment, intervention, medication reconciliation, and coordination of care. Discharge Plan Discharge Items Patient Disposition: Home - Self-Care Reason For Visit: EMPYEMA Discharge Diagnosis: Empyema Activity: Resume your previous activity Non-emergency contact: Primary Care Provider Call non-emergency contact if: you have any medication questions, your symptoms worsen and you have a fever Follow-up/Referrals: Abbi Ames MD [Primary Care Provider] - Diet: Carb Consistent or DM2 Addtl Attending Provider Instructions: Pleural Effusion/Empyema: - You had your Pleur-x catheter removed as it was infected. The bacteria that grew is an organism called staph aureus but thankfully it is sensitive to all antibiotics and is not MRSA - Currently, the fluid has not re-accumulated since the catheter was removed. However, you will need outpatient follow-up with the bore miner operator to monitor for this. They have an appointment on September 03 to follow-up and will get new chest xray. However, if you are having worsening shortness of breath please let them know as you may need an chest xray sooner and a new catheter placed. As well, you may ultimately need to go to [facility] to see a cardiothoracic doctor to possibly do a surgical procedure to try and resolve this. - You will continue on oral antibiotics to finish out a total of 14 days. This includes the days you had here at the hospital. -- Take Amoxicillin only once daily has this was adjusted for your kidneys. Recommend to take the medication AFTER dialysis on Thursday/Thursday/Thursday. You will take Amoxicillin until 07/30. Start this tomorrow on 07/25 as you had a dose today. - Recommend to call the lung doctor's office in the next couple days and confirm the follow-up appointment. Dialysis: - Resume your normal dialysis on Thursday. Recommend to call and let them know you have been discharged from the hospital so they can plan for your seat on Thursday. Home Medications: - Continue your home medications as previously prescribed. Pending Studies at Discharge: No Stand-Alone Forms: My [facility], Smoking Cessation Medications and DC Order Prescriptions: New amoxicillin 500 mg Capsule 500 mg PO DAILY Qty: 6 RF: 0 Continued prochlorperazine maleate [Compazine] 5 mg tablet 5 mg PO BID PRN (Reason: Nausea) RF: 0 acetaminophen 325 mg capsule 650 mg PO Q4H PRN (Reason: Pain (Scale Score 1-3)) RF: 0 pantoprazole 40 mg tablet,delayed release (DR/EC) 40 mg PO BID Qty: 60 RF: 5 lorazepam 0.5 mg tablet 0.5 mg PO Q6H PRN (Reason: Anxiety) Qty: 60 RF: 0 insulin aspart U-100 [Novolog Flexpen U-100 Insulin] 100 unit/mL (3 mL) insulin pen 5 unit SUBCUT TIDM PRN (Reason: sliding scale) Qty: 15 RF: 5 cholecalciferol (vitamin D3) [Vitamin D3] 50 mcg (2,000 unit) capsule 50 mcg PO DAILY Qty: 90 RF: 3 bupropion HCl 100 mg tablet sustained-release 12 hr 100 mg PO DAILY Qty: 30 RF: 3 sertraline 100 mg tablet 100 mg PO QAM Qty: 90 RF: 0 losartan 100 mg tablet 100 mg PO QAM Qty: 90 RF: 3 (DME) pen needle, diabetic [BD Ultra-Fine Annalise Pen Needle] 32 gauge x 5/32" needle See Rx Instructions .Route Qty: 500 RF: 1 carvedilol 25 mg tablet 25 mg PO BIDM RF: 0 melatonin 3 mg tablet 3 mg PO HS RF: 0 mirtazapine [Remeron] 15 mg tablet 7.5 mg PO HS RF: 0 quetiapine [Seroquel] 25 mg tablet 25 mg PO HS Qty: 30 RF: 0 atorvastatin 10 mg tablet 10 mg PO QAM RF: 0 Renal Vitamin 0.8 mg Tablet 1 tab PO DAILY RF: 0 ondansetron HCl 4 mg tablet 8 mg PO Q4 PRN (Reason: nausea or vomiting) RF: 0 Basaglar KwikPen U-100 Insulin 100 unit/mL (3 mL) insulin pen 16 unit SUBCUT QAM RF: 0 Changed amlodipine [Norvasc] 5 mg Tablet 10 mg PO DAILY Qty: 60 RF: 0 Discharge Orders: Discharge Order (Routine); Ordered 07/24/21 Ordered By: Ebonie Lacey Admission Data Admit Date/Time: 07/17/21 13:03 Attending Provider: Guevara Loomis Admit Provider: Guevara Townsend Primary Care Provider: Abbi Ames V. Other Providers: Johnson Lazo ; Arcenio Ortiz Other Interventions: Discharge Summary Assessment (RN) Last Done: 07/24/21 19:32 Supervising Physician Co-Signing Physician Notes I personally saw and examined the patient. I verified all julien points and agree with Ebonie Lacey PA-C with the following exceptions and/or additions: 50 year old male well known to this service. No nausea or vomiting s/p dialysis. Historically cyclic vomiting closely related to his BP and resolves with dialysis. Empyema management by pulmonology O/E No respiratory distress A/P Medically stable for discharge. s/p pleurx removal. Will continue on amoxicillin and follow up with pulmonology with repeat CXRs for accumulation as outpatient. Coding Level of Care Code D/C DAY MANAGEMENT >30 MINS Diagnoses Pleural effusion J90 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, with long-term current use of insulin E10.29 Cyclic vomiting syndrome R11.15 ESRD (end stage renal disease) N18.6 Anemia of chronic disease D63.8 CAD (coronary artery disease) I25.10 Associated angina: without angina Coronary Disease-Associated Artery/Lesion type: [place] artery [place] vs. transplanted heart: [place] heart Diabetic gastroparesis E11.43; K31.84 GERD (gastroesophageal reflux disease) K21.9 Diabetic ulcer of right foot E11.621; L97.519 Depression F33.9 Active/Remission status: remission status unspecified Depression Type: major depressive disorder Major depression recurrence: recurrent
[2021-07-25] MEDS ORDERED: ADVANCED PROBIOTIC 1250 MG CAPSULE PO SCH (09:00)
== END 2021-07-24 20:40 | disposition home or self-care (01) | DRG 919 ==
LOC: ED 12:40 → SUATTDRO 13:03 → 3N 13:03 → 2N 07-21 15:38

== ENCOUNTER 2022-02-27 13:28 | Inpatient (IN) ==
[2022-02-27 14:36] LABS: Basophils # (auto) 0.06 K/uL (0-0.2); Basophils % (auto) 0.7 %; Eosinophils # (auto) 0.05 K/uL (0-0.50); Eosinophils % (auto) 0.6 %; Hematocrit (blood only) 40.1 % (40.1-51.0); Hemoglobin 13.3 g/dl (14.0-18.0); Immature Granulocytes # (auto) 0.05 K/uL (0.00-0.02); Immature Granulocytes % (auto) 0.6 %; Lymphocytes # (auto) 1.04 K/uL (1.2-3.4); Lymphocytes % (auto) 12.1 %; Mean Corpuscular Hemoglobin 32.8 pg (25.0-34.0); Mean Corpuscular Hgb Conc 33.2 g/dL (32.0-36.0); Mean Corpuscular Volume 98.8 fL (80.0-100.0); Mean Platelet Volume 9.5 fL (9.4-12.4); Monocytes # (auto) 0.68 K/uL (0.24-0.82); Monocytes % (auto) 7.9 %; Neutrophils # (auto) 6.72 K/uL (1.4-6.5); Neutrophils % (auto) 78.1 %; Platelet Count 283 K/uL (130-400); RDW Standard Deviation 43.9 fL (36.4-46.3); Red Blood Count 4.06 M/uL (4.63-6.08)
[2022-02-27] MEDS ORDERED: diphenhydrAMINE 50 MG/ML VIAL IV STA (15:06)
[2022-02-27] MEDS ORDERED: SODIUM CHLORIDE 0.9% 500 ML IV ONE (15:06)
[2022-02-27] MEDS ORDERED: PROCHLORPERAZINE 2 ML IV ONE (15:06)
[2022-02-27] MEDS ORDERED: LORazepam 2 MG/2 ML SYR IV STA (15:06)
[2022-02-27 15:12] LABS: Albumin Globulin Ratio 1.4 (0.9-2); Albumin Level 4.2 gm/dl (3.4-5.0); BUN Creatinine Ratio 6.5 (10-20); Bilirubin,Total 0.9 mg/dl (0.2-1.0); Calcium 8.1 mg/dl (8.5-10.1); Creatinine Clr Calc Pharmacy 10.7 ml/min; Est GFR (African American) 9.2 ml/min; Globulin 3.1 gm/dl (2.5-4.0); Potassium 5.1 mmol/L (3.5-5.1); Total Protein 7.3 gm/dl (6.0-8.3)
--- NOTE | 2022-02-27 15:12 | Emergency Department Note ---
History of Present Illness General Chief complaint: Vomiting Stated complaint: NAUSEA, VOMITING Time Seen by Provider: 02/27/22 14:57 Source: patient Mode of arrival: ambulatory Limitations: no limitations History of Present Illness Provider complaint: nausea and vomiting Onset (ago): day(s) 1 This is a 51-year-old male with a history of gastroparesis who presents with nausea and vomiting. He states symptoms began mildly last night however this morning he has been unable to keep anything down. Patient denies any coming abdominal pain, fevers or chills. Denies any known sick contacts. He denies any change in medication. He states he does take medication for his gastroparesis secondary to his diabetes. He states his blood sugar this morning was 150. He states he did have his usual dialysis yesterday, and other than mild cramping, felt his dialysis went normally. He denies any change in medications or diet. Patient denies any recent change in stools. He denies chest pain, shortness of breath. He states he does feel tired and weak. Home Medications Medication Instructions Recorded Confirmed Type melatonin 3 mg tablet 3 mg PO HS 09/05/20 03/01/22 History acetaminophen 325 mg capsule 650 mg PO Q4H PRN Pain (Scale 09/28/20 03/01/22 History Score 1-3) carvedilol 25 mg tablet 50 mg PO BID 10/01/20 03/01/22 History vitamin B complex-vitamin C-folic 1 tab PO QAM 03/13/21 03/01/22 History acid 0.8 mg tablet (Renal Vitamin) ondansetron HCl 4 mg tablet 8 mg PO Q4 PRN nausea or vomiting 03/19/21 03/01/22 History lorazepam 0.5 mg tablet 0.5 mg PO Q6H PRN Anxiety #60 tabs 03/27/21 03/01/22 Rx prochlorperazine maleate 5 mg 5 mg PO BID PRN Nausea 06/03/21 03/01/22 History tablet (Compazine) losartan 100 mg tablet 100 mg PO QAM #90 tabs 06/04/21 03/01/22 Rx insulin aspart U-100 100 unit/mL 5 unit (0.05 mL) subcut TIDM PRN 10/24/21 03/01/22 Rx (3 mL) subcutaneous pen (Novolog sliding scale #15 mL Flexpen U-100 Insulin aspart) cholecalciferol (vitamin D3) 50 50 mcg PO QAM 10/25/21 03/01/22 History mcg (2,000 unit) capsule (Vitamin D3) pen needle, diabetic 32 gauge x #500 ea 12/17/21 02/26/22 Rx " (BD Ultra-Fine Annalise Pen Needle) mirtazapine 7.5 mg tablet 7.5 mg PO HS 12/29/21 03/01/22 History sertraline 100 mg tablet 100 mg PO QAM 12/29/21 03/01/22 History sertraline 25 mg tablet 25 mg PO QAM 12/29/21 03/01/22 History sucroferric oxyhydroxide 500 mg 1,000 mg PO WM 12/29/21 03/01/22 History chewable tablet (Velphoro) insulin glargine 100 unit/mL (3 16 unit (0.16 mL) subcut QAM #15 mL 01/23/22 03/01/22 Rx mL) subcutaneous pen (Basaglar KwikPen U-100 Insulin) atorvastatin 10 mg tablet 10 mg PO QAM #90 tabs 02/03/22 03/01/22 Rx pantoprazole 40 mg tablet,delayed 40 mg PO BID #60 tabs 02/03/22 03/01/22 Rx release blood sugar diagnostic (Contour #100 ea 02/26/22 02/26/22 Rx Next Test Strips) amlodipine 10 mg tablet 10 mg PO DAILY 03/01/22 03/01/22 History hydralazine 50 mg tablet 50 mg PO BID 03/01/22 03/01/22 History Allergies Allergy/AdvReac Type Severity Reaction Status Date / Time shellfish derived Allergy Severe anaphylaxis Verified 03/01/22 07:02 codeine Allergy Intermediate Hives Verified 03/01/22 07:02 promethazine Allergy Intermediate itchy/hives Verified 03/01/22 07:02 Past Med/Surg History Medical History Anemia of chronic disease Anxiety AV fistula left upper arm CAD (coronary artery disease) mild, non-obstructive CAD per 10/2018 cardiac cath> [facility] Cardiac murmur follows with Dr. Powell Cellulitis of chest wall Chronic pleural effusion PleurX catheter placed 01/24/21--removed 07/2021 Cyclical vomiting syndrome Depression Diabetes Diabetic retinopathy Dialysis patient Esophagitis ESRD (end stage renal disease) M,W,F (Follows with Dr. Lor Guadalupe; [facility]) GERD (gastroesophageal reflux disease) History of COVID-19 07/30, not hospitalized, congestion and headache-resolved History of pulmonary embolism 11/2020; unk etiology; was on warfarin (taken off 05/2021) Hypertension Lumbar radiculopathy Palliative care encounter Peripheral neuropathy Plantar wart, right foot Pulmonary embolism Recurrent pleural effusion on left Retinopathy due to secondary diabetes Surgical History H/O shoulder surgery RIGHT History of appendectomy History of cardiac cath 10/2018= no stents, no obstructive disease (at [facility]) History of cataract surgery History of esophagogastroduodenoscopy (EGD) (~03/08/20) History of hip surgery left HIP ARTHROSCOPY History of lithotripsy History of open reduction and internal fixation (ORIF) procedure right hip Nausea and vomiting after administration of anesthetic agent S/P arteriovenous (AV) fistula creation Family History Grandfather Myocardial infarction Grandfather (Maternal) Family history of diabetes mellitus Uncle Myocardial infarction Father Hypertension Mother Kidney stone Other No family history of adverse response to anesthesia Denies family history of Colon cancer Ovarian cancer Prostate cancer Breast cancer Social History Smoking Status: Never smoker Tobacco Type: Cigarettes Second Hand Exposure: No; Hx Alcohol Use: No Hx Substance Use: No Preferred Language: Thai Communication Ability: Effective Visual Impairment: No Limitations Hearing Ability: Normal Nursing Support Worker Required: No Beliefs That Will Affect Care: None marital status: Current Living Situation: Parent Current Living Situation Comment: lives with parents. current occupational status: disabled How many Children do You have: 2 Other Information That Helps Us Care for You: No Feels Safe at Home: Yes Safety Concerns: Feels Safe At This Time Childhood Exposure to Second-Hand Smoke: Yes Dental Care, Regularly: No Physical Activity Frequency: 1-2 Times per Week Seatbelt Use: always Sunscreen Use: No Assistive Devices: Glasses Review of Systems A total of 10 systems reviewed and were otherwise negative All systems reviewed & are unremarkable except as noted in HPI & below Physical Exam Vital Signs Vital Signs - 24 hr 02/27/22 13:42 Temperature 36.6 C Temperature Source Temporal Artery Scan Pulse Rate 84 Respiratory Rate 16 Respiratory Effort / Characteristics Non-Labored Respiratory Depth Normal Blood Pressure 104/53 L Blood Pressure Mean 70 Pulse Oximetry 99 Oxygen Delivery Method Room Air Sepsis Recent Fever Within 48 Hours No Sepsis New/Unexplained Change in Mental Status No Sepsis Action Taken by Nursing No Action Required GENERAL: alert, ill appearing, well nourished, no distress, non-toxic EYE EXAM: normal conjunctiva, PERRL and EOM's grossly intact OROPHARYNX: no exudate, no erythema, lips, buccal mucosa, and tongue normal and mucous membranes are dry NECK: supple, no nuchal rigidity, no adenopathy, non-tender LUNGS: Clear to auscultation. Normal chest wall mechanics, no w/r/r HEART: no murmurs, S1 normal and S2 normal ABDOMEN: abdomen soft, non-tender, normo-active bowel sounds, no masses, no rebound or guarding. BACK: Back is symmetrical on inspection and there is no deformity, no midline tenderness, no CVA tenderness. SKIN: no rashes and no bruising UPPER EXTREMITIES: upper extremities are grossly normal. FROM, nml pulses b/l. Fistula LUE. LOWER EXTREMITIES: No pitting edema. FROM, nml pulses b/l. NEURO EXAM: Normal sensorium, cranial nerves II-XII grossly intact, normal speech, no gross weakness of arms, no gross weakness of legs. Gross sensation intact. Course Course 1525: Pt updated on results. 1559: Patient updated again. He states he has previously had a right-sided kidney stone which she states he passed. No recent back pain or abdominal pain to suggest evolving stone. Nausea medication being infused at this time after patient required IV team for IV access. Administered Medications Discontinued Medications Amlodipine Besylate (Amlodipine Besylate 5 Mg Tab) 5 mg PO BID JACKI Stop: 03/29/22 20:59 Last Admin: 02/28/22 09:15 Dose: Not Given Documented By: Admin: 02/27/22 20:30 Dose: Not Given Documented By: HFS Atorvastatin Calcium (Atorvastatin 10 Mg Tab) 10 mg PO QAM JACKI Stop: 10/23/22 08:59 Last Admin: 02/28/22 09:49 Dose: 10 mg Documented By: Carvedilol (Carvedilol 25 Mg Tab) 50 mg PO BID JACKI Stop: 03/29/22 20:59 Last Admin: 02/28/22 10:04 Dose: 50 mg Documented By: Admin: 02/27/22 20:39 Dose: 50 mg Documented By: VIOLA Diphenhydramine HCl (Diphenhydramine 50 Mg/Ml Vial) 25 mg IV NOW STA Stop: 02/27/22 15:07 Last Admin: 02/27/22 15:54 Dose: 25 mg Documented By: DARLYN Heparin Sodium (Porcine) (Heparin Sod 5,000 Unit/0.5 Ml Vial) 5,000 units SQ Q8 JACKI Stop: 03/29/22 21:59 Last Admin: 02/28/22 17:36 Dose: Not Given Documented By: Admin: 02/28/22 00:34 Dose: Not Given Documented By: Admin: 02/27/22 20:37 Dose: 5,000 units Documented By: VIOLA Heparin Sodium (Porcine) (Heparin Sod (Porcine) 1000 Unit/Ml) 1,600 units IV ONE ONE Stop: 02/28/22 13:01 Last Admin: 02/28/22 17:37 Dose: Not Given Documented By: Heparin Sodium (Porcine) (Heparin Sod (Porcine) 1000 Unit/Ml) 500 units IV Q1H JACKI Stop: 02/28/22 15:31 Last Admin: 02/28/22 17:38 Dose: Not Given Documented By: Admin: 02/28/22 17:37 Dose: Not Given Documented By: Admin: 02/28/22 17:36 Dose: Not Given Documented By: Prochlorperazine (Compazine) 2 mls @ 1 mls/min IV ONE ONE Stop: 02/27/22 15:07 Last Admin: 02/27/22 15:54 Dose: 1 mls/min Documented By: DARLYN Sodium Chloride (Nss) 500 mls @ 999 mls/hr IV .Q31M ONE Stop: 02/27/22 15:36 Last Infusion: 02/27/22 17:18 Dose: 0 mls/hr Documented By: Admin: 02/27/22 15:54 Dose: 999 mls/hr Documented By: RSL Insulin Human Regular 250 (units/ Sodium Chloride) 250 mls @ 0 mls/hr IV .Q0M JACKI; Protocol Stop: 03/29/22 15:29 Last Titration: 02/28/22 02:00 Dose: 0 units/hr, 0 mls/hr Documented By: HFS Co-signed By: DAV Titration: 02/27/22 22:01 Dose: 1 units/hr, 1 mls/hr Documented By: HFS Co-signed By: KS Titration: 02/27/22 21:00 Dose: 4 units/hr, 4 mls/hr Documented By: HFS Co-signed By: CJC Titration: 02/27/22 20:27 Dose: 6 units/hr, 6 mls/hr Documented By: HFS Co-signed By: HEW Titration: 02/27/22 20:20 Dose: 7.4 units/hr, 7.4 mls/hr Documented By: HFS Co-signed By: ARR Titration: 02/27/22 20:15 Dose: 8.9 units/hr, 8.9 mls/hr Documented By: HFS Co-signed By: ARR Titration: 02/27/22 19:09 Dose: 7.4 units/hr, 7.4 mls/hr Documented By: ARR Co-signed By: VK Admin: 02/27/22 16:12 Dose: 6.2 units/hr, 6.2 mls/hr Documented By: MES Co-signed By: RSL Potassium Chloride (K Dom / Wtr) 10 meq in 100 mls @ 100 mls/hr IV Q1H JACKI Stop: 02/27/22 23:49 Last Infusion: 02/28/22 06:55 Dose: 0 mls/hr Documented By: Admin: 02/28/22 00:34 Dose: Not Given Documented By: Admin: 02/28/22 00:33 Dose: Not Given Documented By: Admin: 02/27/22 22:57 Dose: 100 mls/hr Documented By: HFS Sodium Chloride (Nss 1000ml) 500 mls @ 999 mls/hr IV .Q31M ONE Stop: 02/28/22 10:13 Last Infusion: 02/28/22 10:57 Dose: 0 mls/hr Documented By: Admin: 02/28/22 10:03 Dose: 999 mls/hr Documented By: Insulin Aspart (Insulin Aspart Per Unit) 0 units SC ACHS JACKI Stop: 03/29/22 16:29 Last Admin: 02/27/22 16:45 Dose: Not Given Documented By: RSDrea Co-signed By: TA Insulin Aspart (Insulin Aspart Per Unit) 0 units SC ACHS JACKI Stop: 03/29/22 20:59 Last Admin: 02/27/22 20:29 Dose: Not Given Documented By: HFS Insulin Aspart (Insulin Aspart Per Unit) 0 units SC Q4 JACKI Stop: 03/30/22 07:59 Last Admin: 02/28/22 08:19 Dose: Not Given Documented By: Co-signed By: DTT Insulin Aspart (Insulin Aspart Per Unit) 0 units SC ONE ONE Stop: 02/28/22 06:01 Last Admin: 02/28/22 07:07 Dose: 3 units Documented By: Co-signed By: VIOLA Insulin Aspart (Insulin Aspart Per Unit) 0 units SC ACHS JACKI Stop: 03/30/22 07:59 Last Admin: 02/28/22 12:47 Dose: 4 units Documented By: Co-signed By: BROCK Insulin Glargine (Lantus Per Unit Charge) 8 units SQ ONE ONE Stop: 02/28/22 05:01 Last Admin: 02/28/22 05:13 Dose: 8 units Documented By: VIOLA Co-signed By: DAV Insulin Human Regular (Novolin-R Bolus From Bag) 6 units IV ONE ONE Stop: 02/27/22 15:46 Last Admin: 02/27/22 16:11 Dose: 6 units Documented By: TA Co-signed By: DARLYN Lorazepam (Lorazepam 2 Mg/1 Ml Vial) 0.5 mg IV NOW STA; Protocol Stop: 02/27/22 15:07 Last Admin: 02/27/22 15:53 Dose: 0.5 mg Documented By: DARLYN Losartan Potassium (Losartan Potassium 50 Mg Tab) 100 mg PO QAM JACKI Stop: 03/30/22 08:59 Last Admin: 02/28/22 09:58 Dose: Not Given Documented By: Melatonin (Melatonin 3 Mg Tab) 3 mg PO HS JACKI Stop: 03/29/22 20:59 Last Admin: 02/27/22 20:28 Dose: Not Given Documented By: VIOLA Mirtazapine (Mirtazapine Tab 15 Mg Tab) 7.5 mg PO HS [facility] Stop: 03/29/22 20:59 Last Admin: 02/27/22 20:28 Dose: Not Given Documented By: VIOLA Miscellaneous (Order Awaiting Action [Sucroferric Oxyhydroxide [Velphoro] 500 Mg Tablet,Chewable]) 1 each N/A QS [facility] Stop: 03/30/22 00:00 Last Admin: 02/28/22 17:36 Dose: Not Given Documented By: Admin: 02/28/22 08:23 Dose: Not Given Documented By: Admin: 02/28/22 00:34 Dose: Not Given Documented By: VIOLA Pantoprazole Sodium (Pantoprazole 40 Mg Tab) 40 mg PO BID [facility] Stop: 03/29/22 20:59 Last Admin: 02/28/22 09:48 Dose: 40 mg Documented By: Admin: 02/27/22 20:38 Dose: 40 mg Documented By: VIOLA Potassium Chloride (Potassium Chloride Crtab 20 Meq Tabcr) 40 meq PO NOW STA Stop: 02/27/22 23:55 Last Admin: 02/28/22 00:22 Dose: 40 meq Documented By: VIOLA Potassium Chloride (Potassium Chloride Crtab 20 Meq Tabcr) 40 meq PO ONCE ONE Stop: 02/28/22 03:01 Last Admin: 02/28/22 04:19 Dose: 40 meq Documented By: VIOLA Sertraline HCl (Sertraline Hcl 100 Mg Tablet) [facility] [place] Stop: 03/30/22 08:59 Last Admin: 02/28/22 09:49 Dose: 125 mg Documented By: Vitamin B Complex (Vitamin B Complex Tab) 1 tab [facility] [place] Stop: 03/30/22 08:59 Last Admin: 02/28/22 09:51 Dose: 1 tab Documented By: Vitamin D (Cholecalciferol 1,000 Units 25 Mcg Tab) 2,000 units PO [facility] [place] Stop: 03/30/22 08:59 Last Admin: 02/28/22 09:48 Dose: 2,000 units Documented By: Critical Care Time Critical Care Time: Yes Total Critical Care Time: 41 Critical care of 41 min performed to assess and manage high likelihood of life- threatening DKA, involving labs and imaging performed with assessment to evaluate DKA diagnosis with frequent reassessment. This time includes bedside time, treatment discussions with patient/family/consultants, documentation time and excludes procedure time. Medical Decision Making Differential Diagnosis Differential: Gastroenteritis, Food Borne, Esophageal Perforation, , Electrolyte Abnormality, Dehydration, Intraabdominal Infection, UTI/Pyelonephritis, Bowel Obstruction, Biliary Pathology, amongst other pathology entertained. Medical Records Attestation: I reviewed the patient's medical records. Home Medications Current Medication List: was personally reviewed by me Laboratory Data Attestation: I reviewed the patient's lab results. Result diagrams: 02/27/22 14:20 02/28/22 10:18 Lab Results 02/27/22 02/27/22 02/27/22 Range/Units 14:20 14:20 14:20 WBC 8.60 (4.8-10.8) K/ul RBC 4.06 L (4.63-6.08) M/uL Hgb 13.3 L (14.0-18.0) g/dl Hct 40.1 (40.1-51.0) % MCV 98.8 (80.0-100.0) fL MCH 32.8 (25.0-34.0) pg MCHC 33.2 (32.0-36.0) g/dL RDW Std Deviation 43.9 (36.4-46.3) fL RDW Coeff of Kami 12.0 (11.5-14.5) % Plt Count 283 (130-400) K/uL MPV 9.5 (9.4-12.4) fL Immature Gran % (Auto) 0.6 % Neut % (Auto) 78.1 % Lymph % (Auto) 12.1 % Marathon % (Auto) 7.9 % Eos % (Auto) 0.6 % Baso % (Auto) 0.7 % Neut # (Auto) 6.72 H (1.4-6.5) K/uL Lymph # (Auto) 1.04 L (1.2-3.4) K/uL [place] # (Auto) 0.68 (0.24-0.82) K/uL Eos # (Auto) 0.05 (0-0.50) K/uL Baso # (Auto) 0.06 (0-0.2) K/uL Immature Gran # (Auto) 0.05 H (0.00-0.02) K/uL ABG pH (7.35-7.45) ABG pCO2 (35-46) mmHg ABG pO2 (80-95) mmHg ABG HCO3 (19-24) mmol/L ABG O2 Saturation (90-95) % ABG Base Excess (-9-1.8) mEq/L Eder Test (Pos) Oxygen Given Sodium 120 L (136-145) mmol/L Potassium 5.1 (3.5-5.1) mmol/L Chloride 82 L (98-107) mmol/L Carbon Dioxide 17 L (21-32) mmol/L Anion Gap 21 H (3-11) BUN 47 H (6-23) mg/dl Creatinine 7.20 H* (0.6-1.4) mg/dl Est Cr Clr Drug Dosing 10.7 ml/min Est GFR ( Amer) 9.2 ml/min Est GFR (Non-Af Amer) 8.0 ml/min BUN/Creatinine Ratio 6.5 L (10-20) Glucose 750 H* (70-99(Fasting)) mg/dl Estimat Average Glucose mg/dl Hemoglobin A1c (4.5-5.6) % Calcium 8.1 L (8.5-10.1) mg/dl Magnesium 2.4 (1.7-2.4) mg/dl Total Bilirubin 0.9 (0.2-1.0) mg/dl AST 13 (13-39) U/L ALT 18 (7-52) U/L Alkaline Phosphatase 134 H (34-104) U/L Total Protein 7.3 (6.0-8.3) gm/dl Albumin 4.2 (3.4-5.0) gm/dl Globulin 3.1 (2.5-4.0) gm/dl Albumin/Globulin Ratio 1.4 (0.9-2) Lipase 18 (11-82) U/L SARS-CoV-2 (PCR) (Negative) Influenza Type A (PCR) (Neg) Influenza Type B (PCR) (Neg) RSV (RT-PCR) (Neg) 02/27/22 02/27/22 02/27/22 Range/Units 14:20 15:34 16:09 WBC (4.8-10.8) K/ul RBC (4.63-6.08) M/uL Hgb (14.0-18.0) g/dl Hct (40.1-51.0) % MCV (80.0-100.0) fL MCH (25.0-34.0) pg MCHC (32.0-36.0) g/dL RDW Std Deviation (36.4-46.3) fL RDW Coeff of Kami (11.5-14.5) % Plt Count (130-400) K/uL MPV (9.4-12.4) fL Immature Gran % (Auto) % Neut % (Auto) % Lymph % (Auto) % Marathon % (Auto) % Eos % (Auto) % Baso % (Auto) % Neut # (Auto) (1.4-6.5) K/uL Lymph # (Auto) (1.2-3.4) K/uL [place] # (Auto) (0.24-0.82) K/uL Eos # (Auto) (0-0.50) K/uL Baso # (Auto) (0-0.2) K/uL Immature Gran # (Auto) (0.00-0.02) K/uL ABG pH 7.39 (7.35-7.45) ABG pCO2 19 L (35-46) mmHg ABG pO2 121 H (80-95) mmHg ABG HCO3 12 L (19-24) mmol/L ABG O2 Saturation 99.6 H (90-95) % ABG Base Excess -11.0 L (-9-1.8) mEq/L Eder Test POS (Pos) Oxygen Given ROOM AIR Sodium (136-145) mmol/L Potassium (3.5-5.1) mmol/L Chloride (98-107) mmol/L Carbon Dioxide (21-32) mmol/L Anion Gap (3-11) BUN (6-23) mg/dl Creatinine (0.6-1.4) mg/dl Est Cr Clr Drug Dosing ml/min Est GFR ( Amer) ml/min Est GFR (Non-Af Amer) ml/min BUN/Creatinine Ratio (10-20) Glucose (70-99(Fasting)) mg/dl Estimat Average Glucose 235 mg/dl Hemoglobin A1c 9.8 H (4.5-5.6) % Calcium (8.5-10.1) mg/dl Magnesium (1.7-2.4) mg/dl Total Bilirubin (0.2-1.0) mg/dl AST (13-39) U/L ALT (7-52) U/L Alkaline Phosphatase (34-104) U/L Total Protein (6.0-8.3) gm/dl Albumin (3.4-5.0) gm/dl Globulin (2.5-4.0) gm/dl Albumin/Globulin Ratio (0.9-2) Lipase (11-82) U/L SARS-CoV-2 (PCR) NEGATIVE (Negative) Influenza Type A (PCR) Negative (Neg) Influenza Type B (PCR) Negative (Neg) RSV (RT-PCR) Negative (Neg) Imaging Data Radiologist's Impression: KUB X-Ray 02/27/22 15:06 KUB CLINICAL HISTORY: Nausea and vomiting. FINDINGS: 2 AP, portable, supine abdominal radiographs are compared to study dated 04/25/2021 and correlated with abdominal CT dated 03/04/2021. There is a nonobstructed abdominal bowel gas pattern. No evidence of intraperitoneal free air is seen on these supine views. There is a 5 mm nonobstructing right renal calculus. Suture material is noted in the right lower quadrant. There are pelvic phleboliths. Advanced atherosclerotic calcification is seen in the femoral arteries. The skeletal structures are osteopenic and appear intact. Postsurgical changes partially visualized in the right proximal femur. IMPRESSION: 1. No acute abnormality is identified. 2. Right-sided nephrolithiasis. Electronically signed by: Dev Burden M.D. 02/27/2022 3:51 PM ECG Data Attestation: I personally reviewed and interpreted this ECG as follows: Indication: + vomiting Rate (beats per minute): 87 Rhythm: + normal sinus ECG Intervals/blocks: + First degree AV block, + Normal QRS and + Prolonged QT ECG [place]: + Normal ECG ST segments: + Nonspecific ST abnormalities MDM Narrative An order was placed for continuous cardiac monitoring. The monitor shows a rate of _74__ with _normal sinus_ rhythm. THis is a 51 yo male who presents to the ER with c/o n/v. He denies abd pain, fevers, or chills. Patient has CKD and is on HD. VS stable and pt afebrile. Initial labs drawn by nursing staff prior to my evaluation. Patient concerned for gastroparesis. Labs revealed DKA and additional labs, abg added. Patient given 500 ml nss as he appeared clinically dehydrated however given CKD status I did not want to rapidly push him into a volume overloaded state. Insulin added. cxr and kub resulted, given unclear inciting event of DKA, CT a/p added. Stone noted on KUB was not ureteral and pt was aware that he had a stone already. P atient remained hemodynamically stable while in the ER. Case discussed with hospitalist team. Impression & Plan Nausea & vomiting, Diabetic gastroparesis, DKA (diabetic ketoacidosis), Hyponatremia Discharge Plan Visit Data Chief Complaint: Vomiting Stated Complaint: NAUSEA, VOMITING ED Provider: Veronica Fuller Discharge Problem: Nausea & vomiting, Diabetic gastroparesis, DKA (diabetic ketoacidosis), Hyponatremia Patient Disposition: Admitted As Inpatient Discharge Instructions Interventions: ED Discharge Assessment Last Done: 02/27/22 18:31
[2022-02-27] MEDS ORDERED: GLUCOSE 40% GEL 15 GM TUBE PO PRN (15:25)
[2022-02-27] MEDS ORDERED: STAT INSULIN DRIP STA (15:25)
[2022-02-27] MEDS ORDERED: DKA GOAL RANGE 150-250 mg/dl ONE ×2 (15:25→18:49)
[2022-02-27] MEDS ORDERED: CARBOHYDRATES FOR HYPOGLYCEMIA PO PRN (15:25)
[2022-02-27] MEDS ORDERED: DEXTROSE 50% 50 ML SYRINGE IV PRN (15:25)
[2022-02-27] MEDS ORDERED: GLUCOSE 10 TAB/TUBE PO PRN (15:25)
[2022-02-27] MEDS ORDERED: GLUCAGON FOR INJ 1 MG VIAL SQ PRN (15:25)
[2022-02-27] MEDS ORDERED: INSULIN REGULAR 250 UNITS in SODIUM CHLORIDE 0.9% 247.5 ML IV SCH ×2 (15:30→18:49)
[2022-02-27] MEDS ORDERED: NovoLIN-R BOLUS FROM BAG IV ONE (15:45)
[2022-02-27 15:46] LABS: HCO3 ABG 12 mmol/L (19-24); Oxygen Saturation ABG 99.6 % (90-95); PCO2 ABG 19 mmHg (35-46); PO2 ABG 121 mmHg (80-95); pH ABG 7.39 (7.35-7.45)
[2022-02-27 15:47] LABS: Allen Test POS (Pos)
--- NOTE | 2022-02-27 15:53 | XRay Report ---
KUB CLINICAL HISTORY: Nausea and vomiting. FINDINGS: 2 AP, portable, supine abdominal radiographs are compared to study dated 04/25/2021 and cor related with abdominal CT dated 03/04/2021. There is a nonobstructed abdominal bowel gas pattern. No e vidence of intraperitoneal free air is seen on these supine views. There is a 5 mm nonobstructing rig ht renal calculus. Suture material is noted in the right lower quadrant. There are pelvic phleboliths . Advanced atherosclerotic calcification is seen in the femoral arteries. The skeletal structures are osteopenic and appear intact. Postsurgical changes partially visualized in the right proximal femur. IMPRESSION: 1. No acute abnormality is identified. 2. Right-sided nephrolithiasis. Electronically signed by: Dev Burden M.D. 02/27/2022 3:51 PM
--- NOTE | 2022-02-27 16:04 | XRay Report ---
XR chest 1V portable CLINICAL HISTORY: Nausea and vomiting. COMPARISON STUDY: Chest CT July 18, 2021. Chest radiograph August 21, 2021. FINDINGS: Lung volumes are normal. Lungs are clear. Left pleural effusion has resolved. Cardiac size is stable. Mediastinal contours are normal. There is no evidence for pulmonary edema. IMPRESSION: No acute cardiopulmonary findings. ACT 112: Negative or not required by law. Electronically signed by: Gabino Cool M.D. 02/27/2022 4:03 PM
[2022-02-27] MEDS ORDERED: INSULIN ASPART PER UNIT SC SCH ×2 (16:30→21:00)
--- NOTE | 2022-02-27 16:38 | History & Physical Report ---
Date of Service February 27, 2022 Assessment & Plan (1) DKA (diabetic ketoacidosis): Plan: -Admit to PCU/tele -Patient is currently afebrile, hemodynamically stable, and stable on 2L NC -Patient has long history of gastroparesis from DM, had another exacerbation and has been vomiting for the past 24 hours -Was given 500 mL NSS bolus in the ED and started on Insulin drip, potassium was 5.1 prior to starting the drip -Spoke to Nephrology regarding fluid resuscitation moving foraward as he is on HD and does not make urine, appreciate their help, as long as BP is stable they recommend continuing with only the insulin infusion for now. If he would become hypotensive they recommend small boluses only. -Continue insulin drip, VBG, BMP, mag, and phos q6h,will repeat all labs shortly to make sure he is correctly adequately -It does not appear that the patient has an infectious source at this time, no leukocytosis, left shift, or fevers, will add on procal now -CT of the abdomen was obtained as right nephrolithiasis was noted on KUB, noted a stable and non-obstructing 7 mm stone in the right renal pelvis noted on 03/04/22, chronic prostatomegaly with chronic bladder outlet and rectal wall thickening liekly secondary to partial distention (a nonspecific proctitis is considered less likely). Patient has not had diarrhea so less likely that a colitis or porctitis is the cause -Will get a bladder scan to see if we can straight cath for a possible urine sample -Monitor blood sugar and electrolytes, convert back to basal-bolus insulin dosing when gap has closed, bicarb is WNL, and patient and eat consistency (2) Hypertension: Plan: -Continue TEST PREPARER amlodipine, carvedilol, losartan (3) GERD (gastroesophageal reflux disease): Plan: -TEST PREPARER PROTONIX (4) Diabetic gastroparesis: Plan: -IV Compazine 5 mg IV q6h prn for nausea and vomiting (5) Anxiety: Plan: -TEST PREPARER sertraline, Remeron, and ativan (6) ESRD (end stage renal disease): Plan: -Gets HD MWF, had full dialysis session yesterday -[facility] Nephrology consult placed for assistance with HD while patient is admitted -TEST PREPARER vitamin D and phos binder when able to eat (7) Depression: Plan: -TEST PREPARER setraline (8) CAD (coronary artery disease): Plan: -TEST PREPARER aspirin (9) 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 Mckeon at the time of admission History of Present Illness Chief Complaint: nausea and vomiting Primary Care Provider: Abbi Ames MD Sourav is a 51 year old male with a PMH significant for type I controlled diabetes, chronic right foot ulcer, cyclic vomiting, end-stage renal disease on hemodialysis, GERD, hypertension, nonischemic cardiomyopathy, diabetic gastroparesis, peripheral neuropathy, retinopathy due to diabetes, lumbar radiculopathy, chronic anemia of chronic disease, CAD who presented to the [facility] ED on 02/27/22 with complaints of nausea and vomiting. In the ED the patient was found to be afebrile, hemodynamically stable and stable on room air. Labs were remarkable for a blood glucose of 750, AG of 21, bicarb of 17, corrected sodium of 130, potassium of 5.1, calcium of of 8.1, and alk phos of 134. Chest xray was negative for acute findings, KUB showed right- sided nephrolithiasis without other acute findings. In the ED the patient was given 6 units Insulin R, 500 mL NSS bolus, benadryl, compazine, and was subsequently placed on an Insulin drip. At the time of the exam the patient was sleeping in bed with his father sitting bedside. The patient is tired but wakes easily and responds appropriately to questions. He states that he began having nausea and vomiting to due his gastroparesis approximately 24 hours ago. He has not been able to eat or drink much of anything over this time time. He deneis fevers and chills, has no abdominal pain, and does not make urine. He did have dialysis yesterday and denies any issues during his dialysis session. Allergies Allergy/AdvReac Type Severity Reaction Status Date / Time shellfish derived Allergy Severe anaphylaxis Verified 03/01/22 07:02 codeine Allergy Intermediate Hives Verified 03/01/22 07:02 promethazine Allergy Intermediate itchy/hives Verified 03/01/22 07:02 Home Medications Medication Instructions Recorded Confirmed Type melatonin 3 mg tablet 3 mg PO HS 09/05/20 03/01/22 History acetaminophen 325 mg capsule 650 mg PO Q4H PRN Pain (Scale 09/28/20 03/01/22 History Score 1-3) carvedilol 25 mg tablet 50 mg PO BID 10/01/20 03/01/22 History vitamin B complex-vitamin C-folic 1 tab PO QAM 03/13/21 03/01/22 History acid 0.8 mg tablet (Renal Vitamin) ondansetron HCl 4 mg tablet 8 mg PO Q4 PRN nausea or vomiting 03/19/21 03/01/22 History lorazepam 0.5 mg tablet 0.5 mg PO Q6H PRN Anxiety #60 tabs 03/27/21 03/01/22 Rx prochlorperazine maleate 5 mg 5 mg PO BID PRN Nausea 06/03/21 03/01/22 History tablet (Compazine) losartan 100 mg tablet 100 mg PO QAM #90 tabs 06/04/21 03/01/22 Rx insulin aspart U-100 100 unit/mL 5 unit (0.05 mL) subcut TIDM PRN 10/24/21 03/01/22 Rx (3 mL) subcutaneous pen (Novolog sliding scale #15 mL Flexpen U-100 Insulin aspart) cholecalciferol (vitamin D3) 50 50 mcg PO QAM 10/25/21 03/01/22 History mcg (2,000 unit) capsule (Vitamin D3) pen needle, diabetic 32 gauge x #500 ea 12/17/21 02/26/22 Rx 5/32" (BD Ultra-Fine Annalise Pen Needle) mirtazapine 7.5 mg tablet 7.5 mg PO HS 12/29/21 03/01/22 History sertraline 100 mg tablet 100 mg PO QAM 12/29/21 03/01/22 History sertraline 25 mg tablet 25 mg PO QAM 12/29/21 03/01/22 History sucroferric oxyhydroxide 500 mg 1,000 mg PO WM 12/29/21 03/01/22 History chewable tablet (Velphoro) atorvastatin 10 mg tablet 10 mg PO QAM #90 tabs 02/03/22 03/01/22 Rx pantoprazole 40 mg tablet,delayed 40 mg PO BID #60 tabs 02/03/22 03/01/22 Rx release amlodipine 10 mg tablet 10 mg PO DAILY 03/01/22 03/01/22 History hydralazine 50 mg tablet 50 mg PO BID 03/01/22 03/01/22 History blood sugar diagnostic (Contour #100 ea 03/02/22 Rx Next Test Strips) insulin glargine 100 unit/mL (3 15 unit (0.15 mL) subcut QAM #15 mL 03/04/22 03/01/22 Rx mL) subcutaneous pen (Basaglar KwikPen U-100 Insulin) Past Med/Surg History Medical History Anemia of chronic disease Anxiety AV fistula left upper arm CAD (coronary artery disease) mild, non-obstructive CAD per 10/2018 cardiac cath> [facility] Cardiac murmur follows with Dr. Powell Cellulitis of chest wall Chronic pleural effusion PleurX catheter placed 01/24/21--removed 07/2021 Cyclical vomiting syndrome Depression Diabetes Diabetic retinopathy Dialysis patient Esophagitis ESRD (end stage renal disease) M,W,F (Follows with Dr. Lor Guadalupe; [facility]) GERD (gastroesophageal reflux disease) History of COVID-19 07/30, not hospitalized, congestion and headache-resolved History of pulmonary embolism 11/2020; unk etiology; was on warfarin (taken off 05/2021) Hypertension Lumbar radiculopathy Palliative care encounter Peripheral neuropathy Plantar wart, right foot Pulmonary embolism Recurrent pleural effusion on left Retinopathy due to secondary diabetes Surgical History H/O shoulder surgery RIGHT History of appendectomy History of cardiac cath 10/2018= no stents, no obstructive disease (at [facility]) History of cataract surgery History of esophagogastroduodenoscopy (EGD) (~03/08/20) History of hip surgery left HIP ARTHROSCOPY History of lithotripsy History of open reduction and internal fixation (ORIF) procedure right hip Nausea and vomiting after administration of anesthetic agent S/P arteriovenous (AV) fistula creation Family History Grandfather Myocardial infarction Grandfather (Maternal) Family history of diabetes mellitus Uncle Myocardial infarction Father Hypertension Mother Kidney stone Other No family history of adverse response to anesthesia Denies family history of Colon cancer Ovarian cancer Prostate cancer Breast cancer Social History Smoking Status: Never smoker Tobacco Type: Cigarettes Second Hand Exposure: No; Hx Alcohol Use: No Hx Substance Use: No Preferred Language: [place] Communication Ability: Effective Visual Impairment: No Limitations Hearing Ability: Normal Refining Supervisor Required: No Beliefs That Will Affect Care: None marital status: Current Living Situation: Parent Current Living Situation Comment: lives with parents. current occupational status: disabled How many Children do You have: 2 Feels Safe at Home: Yes Childhood Exposure to Second-Hand Smoke: Yes Dental Care, Regularly: No Physical Activity Frequency: 1-2 Times per Week Seatbelt Use: always Sunscreen Use: No Assistive Devices: None and Glasses Physical Exam Physical Exam: Physical Exam: General: In no acute distress, stated age, ill-appearing HEENT: Normocephalic, atraumatic, no scleral icterus, pupils around round, symmetrical, and reactive to light, dry mucus membranes, trachea midline, no thyromegaly Chest/Pulm: No respiratory distress, symmetrical chest expansion, clear br eath sounds throughout Cardiac: RRR, systolic murmur noted Abdomen: Negative for ascites and bruising, normoactive bowel sounds, soft, non-tender to palpation throughout Musculoskeletal: Symmetrical and without signs of acute trauma, upper and lower extremities with full ROM, no atrophy, spasticity, or flaccidity Extremities: Radial, dorsalis pedis, and posterior tibial pulses are intact and symmetrical, no edema noted in the BL LE's Skin: Warm, dry, no rashes , lesions, or scars noted Neuro: Alert and oriented to person, place, month, year, and president, no focal defects, CN II-XII tested and intact, finger to nose test negative, no tremors noted Psych: No acute distress, fatigued, but cooperative during the exam Results & Data Results & Data ([facility]) Vital Signs (Past 12 Hours) Vital Signs Temp Pulse Pulse Resp BP BP Pulse Ox 02/27/22 15:29 89 30 H 191/71 H 92 02/27/22 13:42 36.6 C 84 16 104/53 L 99 O2 Del Method 02/27/22 15:29 Room Air 02/27/22 13:42 Room Air Laboratory Results Abnormal lab results 02/27/22 02/27/22 02/27/22 Range/Units 14:20 14:20 15:34 RBC 4.06 L (4.63-6.08) M/uL Hgb 13.3 L (14.0-18.0) g/dl Neut # (Auto) 6.72 H (1.4-6.5) K/uL Lymph # (Auto) 1.04 L (1.2-3.4) K/uL Immature Gran # (Auto) 0.05 H (0.00-0.02) K/uL ABG pCO2 19 L (35-46) mmHg ABG pO2 121 H (80-95) mmHg ABG HCO3 12 L (19-24) mmol/L ABG O2 Saturation 99.6 H (90-95) % ABG Base Excess -11.0 L (-9-1.8) mEq/L Sodium 120 L (136-145) mmol/L Chloride 82 L (98-107) mmol/L Carbon Dioxide 17 L (21-32) mmol/L Anion Gap 21 H (3-11) BUN 47 H (6-23) mg/dl Creatinine 7.20 H* (0.6-1.4) mg/dl BUN/Creatinine Ratio 6.5 L (10-20) Glucose 750 H* (70-99(Fasting)) mg/dl Calcium 8.1 L (8.5-10.1) mg/dl Alkaline Phosphatase 134 H (34-104) U/L Diagnostic Findings Chest X-Ray 02/27/22 15:06 XR chest 1V portable CLINICAL HISTORY: Nausea and vomiting. COMPARISON STUDY: Chest CT July 18, 2021. Chest radiograph August 21, 2021. FINDINGS: Lung volumes are normal. Lungs are clear. Left pleural effusion has resolved. Cardiac size is stable. Mediastinal contours are normal. There is no evidence for pulmonary edema. IMPRESSION: No acute cardiopulmonary findings. ACT 112: Negative or not required by law. Electronically signed by: Gabino Cool M.D. 02/27/2022 4:03 PM KUB X-Ray 02/27/22 15:06 KUB CLINICAL HISTORY: Nausea and vomiting. FINDINGS: 2 AP, portable, supine abdominal radiographs are compared to study dated 04/25/2021 and correlated with abdominal CT dated 03/04/2021. There is a nonobstructed abdominal bowel gas pattern. No evidence of intraperitoneal free air is seen on these supine views. There is a 5 mm nonobstructing right renal calculus. Suture material is noted in the right lower quadrant. There are pelvic phleboliths. Advanced atherosclerotic calcification is seen in the femoral arteries. The skeletal structures are osteopenic and appear intact. Postsurgical changes partially visualized in the right proximal femur. IMPRESSION: 1. No acute abnormality is identified. 2. Right-sided nephrolithiasis. Electronically signed by: Dev Burden M.D. 02/27/2022 3:51 PM Abdomen/Pelvis CT 02/27/22 15:[address] WITHOUT CONTRAST CT DOSE: 322.27 mGy.cm HISTORY: Acute generalized abdominal pain with weakness abn kub TECHNIQUE: Multiaxial CT images of the abdomen and pelvis were performed without contrast. A dose lowering technique was utilized adhering to the principles of ALARA. COMPARISON STUDY: KUB of same day, CT abdomen and pelvis 03/04/2021 FINDINGS: Mild cardiomegaly. Clear lung bases. Mild right hemidiaphragmatic elevation. 8mm right basilar fissural nodule is indeterminate, likely a lymph node. Study is degraded by respiratory motion artifact. There is no pneumatosis or pneumoperitoneum. Unremarkable spleen, pancreas and adrenal glands. Cholelithiasis with contracted gallbladder. Unremarkable liver. 7 mm calculus within the right renal pelvis is unchanged in positioning compared to the 03/04/2021 exam. There is unchanged mild pelviectasis without hydronephrosis. No definite additional renal or ureteral calculi are identified. Urinary bladder wall thickening with partial distention and perivesicular stranding. Prostamegaly. Atherosclerosis of the aorta and branch vessels. No lymphadenopathy identified. Mild nonspecific distal esophageal wall thickening. Punctate metallic foci within the stomach are suggestive of postoperative changes. There is mild nonspecific rectal wall thickening with trace perirectal stranding. Appendectomy. Unremarkable soft tissues. No acute fracture identified. Intratrochanteric nail with medullary per of the right femur. T11, T12 and L5 compression deformities are chronic. Mild lumbar levoscoliosis. IMPRESSION: 1. 7 mm calculus of the right renal pelvis is unchanged in positioning compared to the 03/04/2021 CT. No hydronephrosis. No additional renal or ureteral calculi are identified. 2. Prostamegaly with findings of chronic bladder outlet obstruction. Correlate with urinalysis to exclude cystitis. 3. No bowel obstruction or pneumoperitoneum. 4. Mild rectal wall thickening is likely secondary to partial distention. A nonspecific proctitis considered less likely. 5. Additional findings as above. ACT 112: Negative or not required by law. The above report was generated using voice recognition software. It may contain grammatical, syntax or spelling errors. Electronically signed by: Justus Martinez M.D. 02/27/2022 4:44 PM ECG Additional Comments: No ECG obtained prior to admission, will obtain one shortly Code Status & VTE Plan Code Status Full code VTE Prophylaxis Plan VTE Prophylaxis will be ordered: Yes Supervising Physician Co-Signing Physician Notes Patient seen and examined at bedside. During face to face encounter obtained a history and physical examination. I reviewed above note and agree with it. Plan of care discussed with patient and APC Peno. Patient admitted for DKA, placed on insulin drip. Will monitor anion gap. PG Care Time/CCT Total # of Minutes Spent Total Time Spent with Patient: Total time spent is greater than 50% in coordination of care (as documented) at patient's floor/unit and/or counseling patient: C[place] [address] Initial Inpt Care Lvl 3 Patient Type Established Medical Decision Making High Complexity Diagnoses DKA (diabetic ketoacidosis) E11.10 Hypertension I10 Hypertension type: unspecified GERD (gastroesophageal reflux disease) K21.9 Diabetic gastroparesis E11.43; K31.84 Anxiety F41.9 ESRD (end stage renal disease) N18.6 Depression F33.9 Active/Remission status: remission status unspecified Depression Type: major depressive disorder Major depression recurrence: recurrent CAD (coronary artery disease) I25.10 Associated angina: without angina Coronary Disease-Associated Artery/Lesion type: [place] artery [place] vs. 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 transplanted heart: [place] heart Qualified Code(s): I25.10 - Atherosclerotic heart disease of [place] coronary artery without angina pectoris (2) Depression Active/Remission status: remission status unspecified Depression Type: major depressive disorder Major depression recurrence: recurrent Qualified Code(s): F33.9 - Major depressive disorder, recurrent, unspecified (3) Hypertension Hypertension type: unspecified Qualified Code(s): I10 - Essential (primary) hypertension
--- NOTE | 2022-02-27 16:46 | CT Scan Report ---
ABDOMEN AND PELVIS CT WITHOUT CONTRAST CT DOSE: 322.27 mGy.cm HISTORY: Acute generalized abdominal pain with weakness abn kub TECHNIQUE: Multiaxial CT images of the abdomen and pelvis were performed without contrast. A dose lo wering technique was utilized adhering to the principles of ALARA. COMPARISON STUDY: KUB of same day, CT abdomen and pelvis 03/04/2021 FINDINGS: Mild cardiomegaly. Clear lung bases. Mild right hemidiaphragmatic elevation. 8mm right basi lar fissural nodule is indeterminate, likely a lymph node. Study is degraded by respiratory motion ar tifact. There is no pneumatosis or pneumoperitoneum. Unremarkable spleen, pancreas and adrenal glands . Cholelithiasis with contracted gallbladder. Unremarkable liver. 7 mm calculus within the right renal pelvis is unchanged in positioning compared to the 03/04/2021 exa m. There is unchanged mild pelviectasis without hydronephrosis. No definite additional renal or urete ral calculi are identified. Urinary bladder wall thickening with partial distention and perivesicular stranding. Prostamegaly. Atherosclerosis of the aorta and branch vessels. No lymphadenopathy identif ied. Mild nonspecific distal esophageal wall thickening. Punctate metallic foci within the stomach are sug gestive of postoperative changes. There is mild nonspecific rectal wall thickening with trace perirec christianne stranding. Appendectomy. Unremarkable soft tissues. No acute fracture identified. Intratrochanter ic nail with medullary per of the right femur. T11, T12 and L5 compression deformities are chronic. M ild lumbar levoscoliosis. IMPRESSION: 1. 7 mm calculus of the right renal pelvis is unchanged in positioning compared to the 03/04/2021 CT. No hydronephrosis. No additional renal or ureteral calculi are identified. 2. Prostamegaly with findings of chronic bladder outlet obstruction. Correlate with urinalysis to exc lude cystitis. 3. No bowel obstruction or pneumoperitoneum. 4. Mild rectal wall thickening is likely secondary to partial distention. A nonspecific proctitis con sidered less likely. 5. Additional findings as above. ACT 112: Negative or not required by law. The above report was generated using voice recognition software. It may contain grammatical, syntax o r spelling errors. Electronically signed by: Justus Martinez M.D. 02/27/2022 4:44 PM
[2022-02-27 17:17] LABS: Influenza A virus by PCR Negative (Neg); Influenza B virus by PCR Negative (Neg); RSV by PCR Negative (Neg); SARS CoV2 RNA(COVID-19) InHosp NEGATIVE (Negative)
[2022-02-27] MEDS ORDERED: STAT IV Infusion **Titration per Protocol STA (18:49)
[2022-02-27] MEDS ORDERED: ACETAMINOPHEN 325 MG TAB PO PRN (18:49)
[2022-02-27] MEDS ORDERED: DC ALL PREVIOUSLY ORDERED DIABETES MEDS ONE (18:49)
[2022-02-27] MEDS ORDERED: PROCHLORPERAZINE 5 MG in SYRINGE 4 ML IV PRN (18:49)
[2022-02-27] MEDS ORDERED: LORazepam 0.5 MG TAB PO PRN (18:49)
[2022-02-27] MEDS ORDERED: PHARMACY GLYCEMIC MGMT CONSULT PRN (18:49)
[2022-02-27] MEDS ORDERED: PENDING D5 1/2NS+20mEq KCL IVF SCH (19:30)
[2022-02-27] MEDS ORDERED: PENDING 1/2NSS+20mEq KCL IVF SCH (19:30)
[2022-02-27 20:29] LABS: BUN Creatinine Ratio 7.6 (10-20); Creatinine Clr Calc Pharmacy 10.3 ml/min; Est GFR (African American) 8.9 ml/min; Est GFR (Non-African American) 7.6 ml/min; Magnesium 2.2 mg/dl (1.7-2.4); Phosphorus 5.3 mg/dl (2.5-4.9); Potassium 3.9 mmol/L (3.5-5.1)
[2022-02-27] MEDS: amLODIPine BESYLATE 5 MG TAB PO SCH (20:30)
[2022-02-27] MEDS: HEPARIN SOD 5,000 UNIT/0.5 ML VIAL SQ SCH (20:37)
[2022-02-27] MEDS: PANTOprazole 40 MG TAB PO SCH (20:38)
[2022-02-27] MEDS: carvediloL 25 MG TAB PO SCH (20:39)
[2022-02-27] MEDS ORDERED: MIRTAZAPINE TAB 15 MG TAB PO SCH (21:00)
[2022-02-27] MEDS ORDERED: MELATONIN 3 MG TAB PO SCH (21:00)
[2022-02-27] MEDS: POTASSIUM CHLORIDE / WTR 10 MEQ/100 ML PLCT IV SCH (22:57)
[2022-02-27] MEDS ORDERED: POTASSIUM CHLORIDE CRTAB 20 MEQ TABCR PO STA (23:54)
[2022-02-28 00:14] LABS: BUN Creatinine Ratio 7.8 (10-20); Creatinine Clr Calc Pharmacy 10.1 ml/min; Est GFR (African American) 8.7 ml/min; Est GFR (Non-African American) 7.5 ml/min; Magnesium 2.2 mg/dl (1.7-2.4)
[2022-02-28] MEDS: POTASSIUM CHLORIDE / WTR 10 MEQ/100 ML PLCT IV SCH ×2 (00:33→00:34)
[2022-02-28] MEDS: HEPARIN SOD 5,000 UNIT/0.5 ML VIAL SQ SCH ×2 (00:34→17:36)
[2022-02-28] MEDS ORDERED: POTASSIUM CHLORIDE CRTAB 20 MEQ TABCR PO ONE (03:00)
[2022-02-28 04:07] LABS: BUN Creatinine Ratio 7.9 (10-20); Calcium 7.8 mg/dl (8.5-10.1); Est GFR (African American) 8.6 ml/min; Est GFR (Non-African American) 7.4 ml/min; Magnesium 2.2 mg/dl (1.7-2.4); Phosphorus 5.5 mg/dl (2.5-4.9); Potassium 3.9 mmol/L (3.5-5.1)
[2022-02-28] MEDS ORDERED: LANTUS PER UNIT CHARGE SQ ONE ×2 (05:00→13:30)
[2022-02-28] MEDS ORDERED: INSULIN ASPART PER UNIT SC ONE (06:00)
[2022-02-28 07:04] LABS: Estimated Average Glucose 235 mg/dl; Hemoglobin A1C 9.8 % (4.5-5.6)
[2022-02-28] MEDS ORDERED: INSULIN ASPART PER UNIT SC SCH ×2 (08:00→11:30)
[2022-02-28] MEDS ORDERED: LOSARTAN POTASSIUM 50 MG TAB PO SCH (09:00)
[2022-02-28] MEDS ORDERED: VITAMIN B COMPLEX TAB PO SCH (09:00)
[2022-02-28] MEDS ORDERED: SERTRALINE HCL 100 MG TABLET PO SCH (09:00)
[2022-02-28] MEDS ORDERED: ATORVASTATIN 10 MG TAB PO SCH (09:00)
[2022-02-28] MEDS ORDERED: CHOLECALCIFEROL 1,000 UNITS 25 MCG TAB PO SCH (09:00)
[2022-02-28] MEDS: amLODIPine BESYLATE 5 MG TAB PO SCH (09:15)
--- NOTE | 2022-02-28 09:39 | Hospitalist Progress Note ---
Date of Service February 28, 2022 Assessment & Plan (1) DKA (diabetic ketoacidosis): Plan: Patient is HD #1 for hyperglycemia with possible early DKA- either way he responded to volume and insulin with improvement this morning -Patient is currently afebrile, hemodynamically stable, and stable on 2L NC -Patient has long history of gastroparesis from DM, had another exacerbation and has been vomiting for the past 24 hours -Was given 500 mL NSS bolus in the ED and started on Insulin drip, potassium was 5.1 prior to starting the drip -Spoke to Nephrology regarding fluid resuscitation moving foraward as he is on HD and does not make urine, appreciate their help, as long as BP is stable they recommend continuing with only the insulin infusion for now. If he would become hypotensive they recommend small boluses only. - Transitioned to sliding scale insulin - gap closed, Hco3 increasing, glucose controlled electrolytes acceptable and will get dialysis today --CT of the abdomen was obtained as right nephrolithiasis was noted on KUB, noted a stable and non-obstructing 7 mm stone in the right renal pelvis noted on 03/04/22, chronic prostatomegaly with chronic bladder outlet and rectal wall thickening liekly secondary to partial distention (a nonspecific proctitis is considered less likely). Patient has not had diarrhea or fevers/abdominal pain so unlikely proctitis. (2) Hypertension: Plan: -Continue [employer] amlodipine, carvedilol, losartan - agents held this morning in the setting of SBP <100- 500ml fluid bolus given - follow BP following dialysis (3) GERD (gastroesophageal reflux disease): Plan: - continue PROTONIX (4) Diabetic gastroparesis: Plan: -IV Compazine 5 mg IV q6h prn for nausea and vomiting - diet introduced this morning without any difficulty (5) Anxiety: Plan: - Continue sertraline, Remeron, and ativan (6) ESRD (end stage renal disease): Plan: -Gets HD MWF, had full dialysis session yesterday -[facility] Nephrology consult placed for assistance with HD while patient is admitted - Continue vitamin D and phos binder when able to eat - Dialysis today (7) Depression: Plan: -Continue setraline (8) CAD (coronary artery disease): Plan: -Continue aspirin (9) 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 He looks markedly better in regards to him progressing with weight gain with controlling his gastropaersis . His previous PluerX catheter has also been removed and is wihtout effusions. He is consistent with his dialysis. Patient states that he woke up the other morning with BG in the 140-160 range, and as the day his BG continued to increase although he states that he was taking his insulin. He was noted to be hyperg lycemic on admission with likely early onset of DKA - had minimal gap of 13-14 and HCO3 0f 17. He was on insulin drip short term that was transitioned to sub q insulin. His gap is closed and glucose is down to 170. His electrolytes are stable and is planning on dialysis today. He would like to leave today if possible following dialysis- will depend on his hemodynamics. He denies feeling ill recently and without sore throat or congestion, he makes urine occasionally and no change. He was without fever or elevated NLR on admission. PCT was 0-86 however this is also in the setting of ESRD. Doubt infectious process at play here. Review of Systems Review of Systems: REVIEW OF SYSTEMS: Constitutional: No fever, sweats or chills Eyes: No diplopia, no worsening or blurred vision ENT: normal hearing, no trouble swallowing Respiratory: No cough, sputum, dyspnea at rest or on exertion Cardiovascular: No chest pain, tightness or palpitations Abdomen: No pain, nausea, vomiting, diarrhea or constipation Musculoskeletal: No joint pain, calf pain, swelling Neurologic: No weakness, numbness/tingling, or balance problems Psychiatric: No anxiety or depression Skin: No rash or itch Physical Exam Physical Exam: PHYSICAL EXAM: General: awake, alert, no apparent distress Head: Normocephalic, atraumatic ENT: PERRL, EOMI, no pharyngeal exudate, mucous membranes moist Neuro: AAO x 3, speech clear and appropriate, strength intact bilaterally 5/5, sensation intact and equal all extremities and dermatomes, no pronator drift Chest: equal rise and fall of the chest, no accessory muscle use, no heaves or thrills, Clear to auscultation, on room air, Cardiac: Regular rate and rhythm, telemetry reviewed- no events overnight, skin warm dry, cap refill <3 seconds, peripheral pulses +2 no JVD, no murmur, left upper arm dialysis fistula with good thrill and bruit and no hematoma or evidence of infection noted. GI: NABS x 4 quadrants, soft, nontender to palpation, no rebound, guarding or t enderness : no CVA tenderness, makes minimal urine Extremities: Normal inspection, no peripheral edema or erythema, calfs nontender to palpation Psych: Normal mood and affect Skin: no rash or erythema Results & Data Results & Data ([facility]) Vital Signs (Past 12 Hours) Vital Signs Temp Pulse Pulse Resp BP Pulse Ox O2 Del Method 02/28/22 08:40 60 02/28/22 06:45 36.6 C 63 16 97/45 L 99 Nasal Cannula 02/28/22 02:40 37.0 C 62 20 110/65 98 Nasal Cannula 02/28/22 01:54 79 02/27/22 23:00 37.0 C 72 16 103/61 98 Nasal Cannula O2 Flow Rate 02/28/22 08:40 02/28/22 06:45 2 02/28/22 02:40 2 02/28/22 01:54 02/27/22 23:00 2 Laboratory Results Laboratory Results - last 24 hr 02/27/22 02/27/22 02/27/22 14:20 14:20 14:20 WBC 8.60 RBC 4.06 L Hgb 13.3 L Hct 40.1 MCV 98.8 MCH 32.8 MCHC 33.2 RDW Std Deviation 43.9 RDW Coeff of Kami 12.0 Plt Count 283 MPV 9.5 Immature Gran % (Auto) 0.6 Neut % (Auto) 78.1 Lymph % (Auto) 12.1 Ness % (Auto) 7.9 Eos % (Auto) 0.6 Baso % (Auto) 0.7 Neut # (Auto) 6.72 H Lymph # (Auto) 1.04 L Ness # (Auto) 0.68 Eos # (Auto) 0.05 Baso # (Auto) 0.06 Immature Gran # (Auto) 0.05 H ABG pH ABG pCO2 ABG pO2 ABG HCO3 ABG O2 Saturation ABG Base Excess Eder Test VBG pH Oxygen Given Sodium 120 L Potassium 5.1 Chloride 82 L Carbon Dioxide 17 L Anion Gap 21 H BUN 47 H Creatinine 7.20 H* Est Cr Clr Drug Dosing 10.7 Est GFR ( Amer) 9.2 Est GFR (Non-Af Amer) 8.0 BUN/Creatinine Ratio 6.5 L Glucose 750 H* POC Glucose Estimat Average Glucose Hemoglobin A1c Calcium 8.1 L Phosphorus Magnesium 2.4 Total Bilirubin 0.9 AST 13 ALT 18 Alkaline Phosphatase 134 H Total Protein 7.3 Albumin 4.2 Globulin 3.1 Albumin/Globulin Ratio 1.4 Lipase 18 Procalcitonin SARS-CoV-2 (PCR) Influenza Type A (PCR) Influenza Type B (PCR) RSV (RT-PCR) 02/27/22 02/27/22 02/27/22 14:20 15:34 16:09 WBC RBC Hgb Hct MCV MCH MCHC RDW Std Deviation RDW Coeff of Kami Plt Count MPV Immature Gran % (Auto) Neut % (Auto) Lymph % (Auto) Ness % (Auto) Eos % (Auto) Baso % (Auto) Neut # (Auto) Lymph # (Auto) Ness # (Auto) Eos # (Auto) Baso # (Auto) Immature Gran # (Auto) ABG pH 7.39 ABG pCO2 19 L ABG pO2 121 H ABG HCO3 12 L ABG O2 Saturation 99.6 H ABG Base Excess -11.0 L Eder Test POS VBG pH Oxygen Given ROOM AIR Sodium Potassium Chloride Carbon Dioxide Anion Gap BUN Creatinine Est Cr Clr Drug Dosing Est GFR ( Amer) Est GFR (Non-Af Amer) BUN/Creatinine Ratio Glucose POC Glucose Estimat Average Glucose 235 Hemoglobin A1c 9.8 H Calcium Phosphorus Magnesium Total Bilirubin AST ALT Alkaline Phosphatase Total Protein Albumin Globulin Albumin/Globulin Ratio Lipase Procalcitonin SARS-CoV-2 (PCR) NEGATIVE Influenza Type A (PCR) Negative Influenza Type B (PCR) Negative RSV (RT-PCR) Negative 02/27/22 02/27/22 02/27/22 17:15 17:48 19:06 WBC RBC Hgb Hct MCV MCH MCHC RDW Std Deviation RDW Coeff of Kami Plt Count MPV Immature Gran % (Auto) Neut % (Auto) Lymph % (Auto) Ness % (Auto) Eos % (Auto) Baso % (Auto) Neut # (Auto) Lymph # (Auto) Ness # (Auto) Eos # (Auto) Baso # (Auto) Immature Gran # (Auto) ABG pH ABG pCO2 ABG pO2 ABG HCO3 ABG O2 Saturation ABG Base Excess Eder Test VBG pH Oxygen Given Sodium Potassium Chloride Carbon Dioxide Anion Gap BUN Creatinine Est Cr Clr Drug Dosing Est GFR ( Amer) Est GFR (Non-Af Amer) BUN/Creatinine Ratio Glucose 652 H* POC Glucose > 600 H* 487 H* Estimat Average Glucose Hemoglobin A1c Calcium Phosphorus Magnesium Total Bilirubin AST ALT Alkaline Phosphatase Total Protein Albumin Globulin Albumin/Globulin Ratio Lipase Procalcitonin SARS-CoV-2 (PCR) Influenza Type A (PCR) Influenza Type B (PCR) RSV (RT-PCR) 02/27/22 02/27/22 02/27/22 19:31 19:31 19:31 WBC RBC Hgb Hct MCV MCH MCHC RDW Std Deviation RDW Coeff of Kami Plt Count MPV Immature Gran % (Auto) Neut % (Auto) Lymph % (Auto) Ness % (Auto) Eos % (Auto) Baso % (Auto) Neut # (Auto) Lymph # (Auto) Ness # (Auto) Eos # (Auto) Baso # (Auto) Immature Gran # (Auto) ABG pH ABG pCO2 ABG pO2 ABG HCO3 ABG O2 Saturation ABG Base Excess Eder Test VBG pH 7.34 L Oxygen Given Sodium 125 L Potassium 3.9 D Chloride 88 L Carbon Dioxide 20 L Anion Gap 17 H BUN 57 H Creatinine 7.46 H* Est Cr Clr Drug Dosing 10.3 Est GFR ( Amer) 8.9 Est GFR (Non-Af Amer) 7.6 BUN/Creatinine Ratio 7.6 L Glucose 495 H* POC Glucose Estimat Average Glucose Hemoglobin A1c Calcium 8.0 L Phosphorus 5.3 H Magnesium 2.2 Total Bilirubin AST ALT Alkaline Phosphatase Total Protein Albumin Globulin Albumin/Globulin Ratio Lipase Procalcitonin 0.87 H SARS-CoV-2 (PCR) Influenza Type A (PCR) Influenza Type B (PCR) RSV (RT-PCR) 02/27/22 02/27/22 02/27/22 19:59 20:56 21:53 WBC RBC Hgb Hct MCV MCH MCHC RDW Std Deviation RDW Coeff of Kami Plt Count MPV Immature Gran % (Auto) Neut % (Auto) Lymph % (Auto) Ness % (Auto) Eos % (Auto) Baso % (Auto) Neut # (Auto) Lymph # (Auto) Ness # (Auto) Eos # (Auto) Baso # (Auto) Immature Gran # (Auto) ABG pH ABG pCO2 ABG pO2 ABG HCO3 ABG O2 Saturation ABG Base Excess Eder Test VBG pH Oxygen Given Sodium Potassium Chloride Carbon Dioxide Anion Gap BUN Creatinine Est Cr Clr Drug Dosing Est GFR ( Amer) Est GFR (Non-Af Amer) BUN/Creatinine Ratio Glucose POC Glucose 439 H* 349 H* 239 H Estimat Average Glucose Hemoglobin A1c Calcium Phosphorus Magnesium Total Bilirubin AST ALT Alkaline Phosphatase Total Protein Albumin Globulin Albumin/Globulin Ratio Lipase Procalcitonin SARS-CoV-2 (PCR) Influenza Type A (PCR) Influenza Type B (PCR) RSV (RT-PCR) 02/27/22 02/27/22 02/27/22 23:00 23:29 23:29 WBC RBC Hgb Hct MCV MCH MCHC RDW Std Deviation RDW Coeff of Kami Plt Count MPV Immature Gran % (Auto) Neut % (Auto) Lymph % (Auto) Ness % (Auto) Eos % (Auto) Baso % (Auto) Neut # (Auto) Lymph # (Auto) Ness # (Auto) Eos # (Auto) Baso # (Auto) Immature Gran # (Auto) ABG pH ABG pCO2 ABG pO2 ABG HCO3 ABG O2 Saturation ABG Base Excess Eder Test VBG pH 7.39 Oxygen Given Sodium 129 L Potassium 4.0 Chloride 92 L Carbon Dioxide 24 Anion Gap 13 H BUN 59 H Creatinine 7.59 H* Est Cr Clr Drug Dosing 10.1 Est GFR ( Amer) 8.7 Est GFR (Non-Af Amer) 7.5 BUN/Creatinine Ratio 7.8 L Glucose 153 H POC Glucose 179 H Estimat Average Glucose Hemoglobin A1c Calcium 8.0 L Phosphorus 5.0 H Magnesium 2.2 Total Bilirubin AST ALT Alkaline Phosphatase Total Protein Albumin Globulin Albumin/Globulin Ratio Lipase Procalcitonin SARS-CoV-2 (PCR) Influenza Type A (PCR) Influenza Type B (PCR) RSV (RT-PCR) 02/27/22 02/28/22 02/28/22 23:53 00:55 02:26 WBC RBC Hgb Hct MCV MCH MCHC RDW Std Deviation RDW Coeff of Kami Plt Count MPV Immature Gran % (Auto) Neut % (Auto) Lymph % (Auto) Ness % (Auto) Eos % (Auto) Baso % (Auto) Neut # (Auto) Lymph # (Auto) Ness # (Auto) Eos # (Auto) Baso # (Auto) Immature Gran # (Auto) ABG pH ABG pCO2 ABG pO2 ABG HCO3 ABG O2 Saturation ABG Base Excess Eder Test VBG pH Oxygen Given Sodium Potassium Chloride Carbon Dioxide Anion Gap BUN Creatinine Est Cr Clr Drug Dosing Est GFR ( Amer) Est GFR (Non-Af Amer) BUN/Creatinine Ratio Glucose POC Glucose 155 H 124 H 135 H Estimat Average Glucose Hemoglobin A1c Calcium Phosphorus Magnesium Total Bilirubin AST ALT Alkaline Phosphatase Total Protein Albumin Globulin Albumin/Globulin Ratio Lipase Procalcitonin SARS-CoV-2 (PCR) Influenza Type A (PCR) Influenza Type B (PCR) RSV (RT-PCR) 02/28/22 02/28/22 02/28/22 03:29 03:30 03:30 WBC RBC Hgb Hct MCV MCH MCHC RDW Std Deviation RDW Coeff of Kami Plt Count MPV Immature Gran % (Auto) Neut % (Auto) Lymph % (Auto) Ness % (Auto) Eos % (Auto) Baso % (Auto) Neut # (Auto) Lymph # (Auto) Ness # (Auto) Eos # (Auto) Baso # (Auto) Immature Gran # (Auto) ABG pH ABG pCO2 ABG pO2 ABG HCO3 ABG O2 Saturation ABG Base Excess Eder Test VBG pH 7.38 Oxygen Given Sodium 129 L Potassium 3.9 Chloride 93 L Carbon Dioxide 23 Anion Gap 13 H BUN 61 H Creatinine 7.68 H* Est Cr Clr Drug Dosing 10.0 Est GFR ( Amer) 8.6 Est GFR (Non-Af Amer) 7.4 BUN/Creatinine Ratio 7.9 L Glucose 102 H POC Glucose 99 Estimat Average Glucose Hemoglobin A1c Calcium 7.8 L Phosphorus 5.5 H Magnesium 2.2 Total Bilirubin AST ALT Alkaline Phosphatase Total Protein Albumin Globulin Albumin/Globulin Ratio Lipase Procalcitonin SARS-CoV-2 (PCR) Influenza Type A (PCR) Influenza Type B (PCR) RSV (RT-PCR) 02/28/22 02/28/22 02/28/22 04:49 06:03 06:57 WBC RBC Hgb Hct MCV MCH MCHC RDW Std Deviation RDW Coeff of Kami Plt Count MPV Immature Gran % (Auto) Neut % (Auto) Lymph % (Auto) Ness % (Auto) Eos % (Auto) Baso % (Auto) Neut # (Auto) Lymph # (Auto) Ness # (Auto) Eos # (Auto) Baso # (Auto) Immature Gran # (Auto) ABG pH ABG pCO2 ABG pO2 ABG HCO3 ABG O2 Saturation ABG Base Excess Eder Test VBG pH Oxygen Given Sodium Potassium Chloride Carbon Dioxide Anion Gap BUN Creatinine Est Cr Clr Drug Dosing Est GFR ( Amer) Est GFR (Non-Af Amer) BUN/Creatinine Ratio Glucose POC Glucose 118 H 192 H 241 H Estimat Average Glucose Hemoglobin A1c Calcium Phosphorus Magnesium Total Bilirubin AST ALT Alkaline Phosphatase Total Protein Albumin Globulin Albumin/Globulin Ratio Lipase Procalcitonin SARS-CoV-2 (PCR) Influenza Type A (PCR) Influenza Type B (PCR) RSV (RT-PCR) 02/28/22 02/28/22 02/28/22 08:09 10:18 10:18 WBC RBC Hgb Hct MCV MCH MCHC RDW Std Deviation RDW Coeff of Kami Plt Count MPV Immature Gran % (Auto) Neut % (Auto) Lymph % (Auto) Ness % (Auto) Eos % (Auto) Baso % (Auto) Neut # (Auto) Lymph # (Auto) Ness # (Auto) Eos # (Auto) Baso # (Auto) Immature Gran # (Auto) ABG pH ABG pCO2 ABG pO2 ABG HCO3 ABG O2 Saturation ABG Base Excess Eder Test VBG pH 7.33 L Oxygen Given Sodium 130 L Potassium 4.8 D Chloride 95 L Carbon Dioxide 21 Anion Gap 14 H BUN 65 H Creatinine 9.18 H* D Est Cr Clr Drug Dosing 8.8 Est GFR ( Amer) 6.9 Est GFR (Non-Af Amer) 5.9 BUN/Creatinine Ratio 7.1 L Glucose 136 H POC Glucose 217 H Estimat Average Glucose Hemoglobin A1c Calcium 8.0 L Phosphorus 5.3 H Magnesium 2.3 Total Bilirubin AST ALT Alkaline Phosphatase Total Protein Albumin Globulin Albumin/Globulin Ratio Lipase Procalcitonin SARS-CoV-2 (PCR) Influenza Type A (PCR) Influenza Type B (PCR) RSV (RT-PCR) 02/28/22 02/28/22 02/28/22 11:17 12:44 12:51 WBC RBC Hgb Hct MCV MCH MCHC RDW Std Deviation RDW Coeff of Kami Plt Count MPV Immature Gran % (Auto) Neut % (Auto) Lymph % (Auto) Ness % (Auto) Eos % (Auto) Baso % (Auto) Neut # (Auto) Lymph # (Auto) Ness # (Auto) Eos # (Auto) Baso # (Auto) Immature Gran # (Auto) ABG pH ABG pCO2 ABG pO2 ABG HCO3 ABG O2 Saturation ABG Base Excess Eder Test VBG pH Pending Oxygen Given Sodium Pending Potassium Pending Chloride Pending Carbon Dioxide Pending Anion Gap Pending BUN Pending Creatinine Pending Est Cr Clr Drug Dosing Pending Est GFR ( Amer) Pending Est GFR (Non-Af Amer) Pending BUN/Creatinine Ratio Pending Glucose Pending POC Glucose 170 H Estimat Average Glucose Hemoglobin A1c Calcium Pending Phosphorus Pending Magnesium Pending Total Bilirubin AST ALT Alkaline Phosphatase Total Protein Albumin Globulin Albumin/Globulin Ratio Lipase Procalcitonin SARS-CoV-2 (PCR) Influenza Type A (PCR) Influenza Type B (PCR) RSV (RT-PCR) Diagnostic Findings Chest X-Ray 02/27/22 15:06 XR chest 1V portable CLINICAL HISTORY: Nausea and vomiting. COMPARISON STUDY: Chest CT July 18, 2021. Chest radiograph August 21, 2021. FINDINGS: Lung volumes are normal. Lungs are clear. Left pleural effusion has resolved. Cardiac size is stable. Mediastinal contours are normal. There is no evidence for pulmonary edema. IMPRESSION: No acute cardiopulmonary findings. ACT 112: Negative or not required by law. Electronically signed by: Gabino Cool M.D. 02/27/2022 4:03 PM KUB X-Ray 02/27/22 15:06 KUB CLINICAL HISTORY: Nausea and vomiting. FINDINGS: 2 AP, portable, supine abdominal radiographs are compared to study dated 04/25/2021 and correlated with abdominal CT dated 03/04/2021. There is a nonobstructed abdominal bowel gas pattern. No evidence of intraperitoneal free air is seen on these supine views. There is a 5 mm nonobstructing right renal calculus. Suture material is noted in the right lower quadrant. There are pelvic phleboliths. Advanced atherosclerotic calcification is seen in the femoral arteries. The skeletal structures are osteopenic and appear intact. Postsurgical changes partially visualized in the right proximal femur. IMPRESSION: 1. No acute abnormality is identified. 2. Right-sided nephrolithiasis. Electronically signed by: Dev Burden M.D. 02/27/2022 3:51 PM Abdomen/Pelvis CT 02/27/22 15:[address] WITHOUT CONTRAST CT DOSE: 322.27 mGy.cm HISTORY: Acute generalized abdominal pain with weakness abn kub TECHNIQUE: Multiaxial CT images of the abdomen and pelvis were performed without contrast. A dose lowering technique was utilized adhering to the principles of ALARA. COMPARISON STUDY: KUB of same day, CT abdomen and pelvis 03/04/2021 FINDINGS: Mild cardiomegaly. Clear lung bases. Mild right hemidiaphragmatic elevation. 8mm right basilar fissural nodule is indeterminate, likely a lymph node. Study is degraded by respiratory motion artifact. There is no pneumatosis or pneumoperitoneum. Unremarkable spleen, pancreas and adrenal glands. Cholelithiasis with contracted gallbladder. Unremarkable liver. 7 mm calculus within the right renal pelvis is unchanged in positioning compared to the 03/04/2021 exam. There is unchanged mild pelviectasis without hydronephrosis. No definite additional renal or ureteral calculi are identified. Urinary bladder wall thickening with partial distention and perivesicular stranding. Prostamegaly. Atherosclerosis of the aorta and branch vessels. No lymphadenopathy identified. Mild nonspecific distal esophageal wall thickening. Punctate metallic foci within the stomach are suggestive of postoperative changes. There is mild nonspecific rectal wall thickening with trace perirectal stranding. Appendectomy. Unremarkable soft tissues. No acute fracture identified. Intratrochanteric nail with medullary per of the right femur. T11, T12 and L5 compression deformities are chronic. Mild lumbar levoscoliosis. IMPRESSION: 1. 7 mm calculus of the right renal pelvis is unchanged in positioning compared to the 03/04/2021 CT. No hydronephrosis. No additional renal or ureteral calculi are identified. 2. Prostamegaly with findings of chronic bladder outlet obstruction. Correlate with urinalysis to exclude cystitis. 3. No bowel obstruction or pneumoperitoneum. 4. Mild rectal wall thickening is likely secondary to partial distention. A nonspecific proctitis considered less likely. 5. Additional findings as above. ACT 112: Negative or not required by law. The above report was generated using voice recognition software. It may contain grammatical, syntax or spelling errors. Electronically signed by: Justus Martinez M.D. 02/27/2022 4:44 PM Medications Administered Amlodipine Besylate (Amlodipine Besylate 5 Mg Tab) 5 mg PO BID [facility] Stop: 03/29/22 20:59 Last Admin: 02/28/22 09:15 Dose: Not Given Documented By: Admin: 02/27/22 20:30 Dose: Not Given Documented By: HFS Atorvastatin Calcium (Atorvastatin 10 Mg Tab) 10 mg PO QAM [facility] Stop: 03/30/22 08:59 Last Admin: 02/28/22 09:49 Dose: 10 mg Documented By: Carvedilol (Carvedilol 25 Mg Tab) 50 mg PO BID [facility] Stop: 03/29/22 20:59 Last Admin: 02/28/22 10:04 Dose: 50 mg Documented By: Admin: 02/27/22 20:39 Dose: 50 mg Documented By: VIOLA Heparin Sodium (Porcine) (Heparin Sod 5,000 Unit/0.5 Ml Vial) 5,000 units SQ Q8 [facility] Stop: 03/29/22 21:59 Last Admin: 02/28/22 00:34 Dose: Not Given Documented By: Admin: 02/27/22 20:37 Dose: 5,000 units Documented By: VIOLA Insulin Human Regular 250 (units/ Sodium Chloride) 250 mls @ 0 mls/hr IV .Q0M JACKI; Protocol Stop: 03/29/22 15:29 Last Titration: 02/28/22 02:00 Dose: 0 units/hr, 0 mls/hr Documented By: VIOLA Co-signed By: DAV Titration: 02/27/22 22:01 Dose: 1 units/hr, 1 mls/hr Documented By: VIOLA Co-signed By: KS Titration: 02/27/22 21:00 Dose: 4 units/hr, 4 mls/hr Documented By: VIOLA Co-signed By: CJC Titration: 02/27/22 20:27 Dose: 6 units/hr, 6 mls/hr Documented By: HFS Co-signed By: HEW Titration: 02/27/22 20:20 Dose: 7.4 units/hr, 7.4 mls/hr Documented By: HFS Co-signed By: ARR Titration: 02/27/22 20:15 Dose: 8.9 units/hr, 8.9 mls/hr Documented By: HFS Co-signed By: ARR Titration: 02/27/22 19:09 Dose: 7.4 units/hr, 7.4 mls/hr Documented By: ARR Co-signed By: VK Admin: 02/27/22 16:12 Dose: 6.2 units/hr, 6.2 mls/hr Documented By: MES Co-signed By: RSL Insulin Aspart (Insulin Aspart Per Unit) 0 units SC ACHS [facility] Stop: 03/30/22 07:59 Last Admin: 02/28/22 12:47 Dose: 4 units Documented By: ENS Co-signed By: CMP Losartan Potassium (Losartan Potassium 50 Mg Tab) 100 mg PO QAM [facility] Stop: 03/30/22 08:59 Last Admin: 02/28/22 09:58 Dose: Not Given Documented By: ENS Melatonin (Melatonin 3 Mg Tab) 3 mg PO HS [facility] Stop: 03/29/22 20:59 Last Admin: 02/27/22 20:28 Dose: Not Given Documented By: HFS Mirtazapine (Mirtazapine Tab 15 Mg Tab) 7.5 mg PO HS [facility] Stop: 03/29/22 20:59 Last Admin: 02/27/22 20:28 Dose: Not Given Documented By: HFS Miscellaneous (Order Awaiting Action [Sucroferric Oxyhydroxide [Velphoro] 500 Mg Tablet,Chewable]) 1 each N/A QS [facility] Stop: 03/30/22 00:00 Last Admin: 02/28/22 08:23 Dose: Not Given Documented By: Admin: 02/28/22 00:34 Dose: Not Given Documented By: HFS Pantoprazole Sodium (Pantoprazole 40 Mg Tab) 40 mg PO BID [facility] Stop: 03/29/22 20:59 Last Admin: 02/28/22 09:48 Dose: 40 mg Documented By: Admin: 02/27/22 20:38 Dose: 40 mg Documented By: HFS Sertraline HCl (Sertraline Hcl 100 Mg Tablet) 125 mg PO QAM [facility] Stop: 03/30/22 08:59 Last Admin: 02/28/22 09:49 Dose: 125 mg Documented By: ENS Vitamin B Complex (Vitamin B Complex Tab) 1 tab PO QAM [facility] Stop: 03/30/22 08:59 Last Admin: 02/28/22 09:51 Dose: 1 tab Documented By: Vitamin D (Cholecalciferol 1,000 Units 25 Mcg Tab) 2,000 units PO QAM [facility] Stop: 03/30/22 08:59 Last Admin: 02/28/22 09:48 Dose: 2,000 units Documented By: Discontinued Medications Diphenhydramine HCl (Diphenhydramine 50 Mg/Ml Vial) 25 mg IV NOW STA Stop: 02/27/22 15:07 Last Admin: 02/27/22 15:54 Dose: 25 mg Documented By: RSDrea Prochlorperazine (Compazine) 2 mls @ 1 mls/min IV ONE ONE Stop: 02/27/22 15:07 Last Admin: 02/27/22 15:54 Dose: 1 mls/min Documented By: RSL Sodium Chloride (Nss) 500 mls @ 999 mls/hr IV .Q31M ONE Stop: 02/27/22 15:36 Last Infusion: 02/27/22 17:18 Dose: 0 mls/hr Documented By: Admin: 02/27/22 15:54 Dose: 999 mls/hr Documented By: RSL Potassium Chloride (K Dom / Wtr) 10 meq in 100 mls @ 100 mls/hr IV Q1H JACKI Stop: 02/27/22 23:49 Last Infusion: 02/28/22 06:55 Dose: 0 mls/hr Documented By: Admin: 02/28/22 00:34 Dose: Not Given Documented By: Admin: 02/28/22 00:33 Dose: Not Given Documented By: Admin: 02/27/22 22:57 Dose: 100 mls/hr Documented By: HFS Sodium Chloride (Nss 1000ml) 500 mls @ 999 mls/hr IV .Q31M ONE Stop: 02/28/22 10:13 Last Infusion: 02/28/22 10:57 Dose: 0 mls/hr Documented By: Admin: 02/28/22 10:03 Dose: 999 mls/hr Documented By: Insulin Aspart (Insulin Aspart Per Unit) 0 units SC ACHS JACKI Stop: 03/29/22 16:29 Last Admin: 02/27/22 16:45 Dose: Not Given Documented By: DARLYN Co-signed By: TA Insulin Aspart (Insulin Aspart Per Unit) 0 units SC ACHS [facility] Stop: 03/29/22 20:59 Last Admin: 02/27/22 20:29 Dose: Not Given Documented By: VIOLA Insulin Aspart (Insulin Aspart Per Unit) 0 units SC Q4 JACKI Stop: 03/30/22 07:59 Last Admin: 02/28/22 08:19 Dose: Not Given Documented By: Co-signed By: TANNER Insulin Aspart (Insulin Aspart Per Unit) 0 units SC ONE ONE Stop: 02/28/22 06:01 Last Admin: 02/28/22 07:07 Dose: 3 units Documented By: Co-signed By: VIOLA Insulin Glargine (Lantus Per Unit Charge) 8 units SQ ONE ONE Stop: 02/28/22 05:01 Last Admin: 02/28/22 05:13 Dose: 8 units Documented By: VIOLA Co-signed By: DAV Insulin Human Regular (Novolin-R Bolus From Bag) 6 units IV ONE ONE Stop: 02/27/22 15:46 Last Admin: 02/27/22 16:11 Dose: 6 units Documented By: TA Co-signed By: DARLYN Lorazepam (Lorazepam 2 Mg/1 Ml Vial) 0.5 mg IV NOW STA; Protocol Stop: 02/27/22 15:07 Last Admin: 02/27/22 15:53 Dose: 0.5 mg Documented By: DARLYN Potassium Chloride (Potassium Chloride Crtab 20 Meq Tabcr) 40 meq PO NOW STA Stop: 02/27/22 23:55 Last Admin: 02/28/22 00:22 Dose: 40 meq Documented By: VIOLA Potassium Chloride (Potassium Chloride Crtab 20 Meq Tabcr) 40 meq PO ONCE ONE Stop: 02/28/22 03:01 Last Admin: 02/28/22 04:19 Dose: 40 meq Documented By: VIOLA PG Care Time/CCT Total # of Minutes Spent Total Time Spent with Patient: Total time spent is greater than 50% in coordination of care (as documented) at patient's floor/unit and/or counseling patient: Coding Level of Care Code 00571 Subseq Hosp Care Lvl 3 Diagnoses DKA (diabetic ketoacidosis) E11.10 Hypertension I10 Hypertension type: unspecified GERD (gastroesophageal reflux disease) K21.9 Diabetic gastroparesis E11.43; K31.84 Anxiety F41.9 ESRD (end stage renal disease) N18.6 Depression F33.9 Active/Remission status: remission status unspecified Depression Type: major depressive disorder Major depression recurrence: recurrent CAD (coronary artery disease) I25.10 Associated angina: without angina Coronary Disease-Associated Artery/Lesion type: [place] artery [place] vs. 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 transplanted heart: [place] heart Qualified Code(s): I25.10 - Atherosclerotic heart disease of [place] coronary artery without angina pectoris (2) Depression Active/Remission status: remission status unspecified Depression Type: major depressive disorder Major depression recurrence: recurrent Qualified Code(s): F33.9 - Major depressive disorder, recurrent, unspecified (3) Hypertension Hypertension type: unspecified Qualified Code(s): I10 - Essential (primary) hypertension
[2022-02-28] MEDS ORDERED: SODIUM CHLORIDE 0.9% 1000ML 500 ML IV ONE (09:43)
[2022-02-28] MEDS: PANTOprazole 40 MG TAB PO SCH (09:48)
[2022-02-28] MEDS: carvediloL 25 MG TAB PO SCH (10:04)
[2022-02-28] MEDS ORDERED: Nursing to Pharmacy Communication SCH (11:00)
[2022-02-28 11:11] LABS: BUN Creatinine Ratio 7.1 (10-20); Creatinine Clr Calc Pharmacy 8.8 ml/min; Est GFR (African American) 6.9 ml/min; Est GFR (Non-African American) 5.9 ml/min; Magnesium 2.3 mg/dl (1.7-2.4); Phosphorus 5.3 mg/dl (2.5-4.9); Potassium 4.8 mmol/L (3.5-5.1)
[2022-02-28] MEDS ORDERED: SODIUM CHLORIDE 0.9% 1000ML 1,000 ML IV PRN (11:19)
--- NOTE | 2022-02-28 12:40 | Electrocardiogram Report ---
Test Reason : Blood Pressure : / mmHG Vent. Rate : 087 BPM Atrial Rate : 087 BPM P-R Int : 224 ms QRS Dur : 102 ms QT Int : 434 ms P-R-T Axes : 062 061 071 degrees QTc Int : 522 ms Sinus rhythm with 1st degree A-V block Possible Left atrial enlargement Left ventricular hypertrophy with repolarization abnormality Prolonged QT Abnormal ECG When compared with ECG of 23-JUL-2021 13:19, QT has lengthened Confirmed by Alex Gracia ([id number]) on 02/28/2022 12:39:47 PM Referred By: REFERRED SELF Confirmed By:Alex Gracia
[2022-02-28] MEDS ORDERED: HEPARIN SOD (PORCINE) 1000 UNIT/ML IV ONE (13:00)
--- NOTE | 2022-02-28 13:05 | Consultation Report ---
NEPHROLOGY CONSULTATION NOTE REASON FOR CONSULTATION: Dialysis patient admitted with nausea, vomiting. HISTORY OF PRESENT ILLNESS: The patient is a 51-year-old male with longstanding type 1 diabetes with all the complications including end-stage renal disease, on hemodialysis Thursday, Thursday, Thursday. He presented to the hospital last night because of intractable nausea, vomiting from severe gastropa resis. He has been admitted uncountable number of times for the same problem. At this point, he fee ls better than yesterday. He did not have any other complaints like diarrhea, abdominal pain, blood in the vomitus or blood in the stool, shortness of breath. He is very compliant with dialysis and ge ts it at the [facility] unit with Dr. Lor Higgins. He has a well functional fistula for dialysis. His last dialysis was on Thursday without problem. He is due for dialysis today. His v ital signs show somewhat low blood pressure than usual. Sodium is slightly low at 130. PAST MEDICAL AND SURGICAL HISTORY: Includes ESRD, on hemodialysis Thursday, Thursday, Thursday, diabete s for a very long time, diabetic retinopathy, neuropathy, diabetic gastroparesis, coronary artery dis ease, mild nonobstructive CAD, AV fistula, anxiety, lumbar radiculopathy, history of pulmonary emboli sm, recurrent pleural effusion on the left, appendicectomy, cataract surgery, EGD, hip surgery, litho tripsy, open reduction and internal fixation of the hip, status post AV fistula. FAMILY HISTORY: Negative for renal disease or dialysis. SOCIAL HISTORY: Never smoked. He is , lives with his parents. He is disabled. REVIEW OF SYSTEMS: As detailed in HPI; unless stated otherwise, 12 systems reviewed and negative. ALLERGIES: List reviewed and is as per H and P and the reconciliation list. MEDICATIONS: Home medication list was reviewed in detail and is as per the reconciliation list and H and P. PHYSICAL EXAMINATION: GENERAL: A middle-aged white male who is not in any overt respiratory distress. He is awake, alert, oriented x3. VITAL SIGNS: Blood pressure is 97/45, pulse rate 60, temperature 36.6, 99% on 2 liter nasal cannula. CHEST: Bilaterally clear to auscultation. CARDIOVASCULAR: S1 and S2, regular. ABDOMEN: Soft, nontender. EXTREMITIES: Show no edema. LABORATORY TESTS: From today was reviewed. Sodium 130, potassium 4.8, BUN 65, creatinine 9.18. [place]y sphorus is 5.3, calcium is 8.0, hemoglobin is 13.3, platelet count 283. IMAGING DATA: CT abdomen and pelvis was done, which shows a 7 mm calculus of the right renal pelvis, which is not new. No other significant finding noted. Chest x-ray did not show any congestive hear t failure. ASSESSMENT AND PLAN: A 51-year-old male with longstanding diabetes with ESRD, on hemodialysis Thursday , Thursday, Thursday as well as all the complications of diabetes including severe gastroparesis, now admitted with intractable nausea, vomiting. End-stage renal disease. His dialysis days are Thursday, Thursday, Thursday and we will do him later to day. We will do him for 3 hours 45 minutes and try to take about 1-1/2 to 2 kilos off. He does not appear to be in any volume overload at this point. Electrolytes are relatively reasonable for an ESR D patient. Intractable nausea, vomiting is secondary to severe gastroparesis and has been admitted n umerous times in the last few years. It seems to have subsided today. Thank you very much for the consult. Job ID: [id number]
--- NOTE | 2022-02-28 13:23 | Pharmacy Report ---
Pharmacy Glycemic Short Note 2 - Date of Service February 28, 2022 - Glycemic Short BSG Results (Last 24 hours): 02/27/22 02/27/22 02/27/22 14:20 17:15 17:48 Glucose 750 H* 652 H* POC Glucose > 600 H* 02/27/22 02/27/22 02/27/22 19:06 19:31 19:59 Glucose 495 H* POC Glucose 487 H* 439 H* 02/27/22 02/27/22 02/27/22 20:56 21:53 23:00 Glucose POC Glucose 349 H* 239 H 179 H 02/27/22 02/27/22 02/28/22 23:29 23:53 00:55 Glucose 153 H POC Glucose 155 H 124 H 02/28/22 02/28/22 02/28/22 02:26 03:29 03:30 Glucose 102 H POC Glucose 135 H 99 02/28/22 02/28/22 02/28/22 04:49 06:03 06:57 Glucose POC Glucose 118 H 192 H 241 H 02/28/22 02/28/22 02/28/22 08:09 10:18 11:17 Glucose 136 H POC Glucose 217 H 170 H OUTPATIENT ANTIDIABETIC REGIMEN: * Lantus 16 units SQ qAM * Novolog SQ TID with meals * Correction factor: 30 mg/dL/unit * Carb ratio: 1 unit per 10 gm CHO consumed * HbA1c: 9.8% -- though this is difficult to interpret in the setting of intermittent HD ASSESSMENT: * Mr De Los Santos is a 51yo type 1 diabetic M admitted with N/V and found to be in DKA. * Pt is well known to the pharmacy glycemic mgmt service from past admissions. * Pt was initially started on an insulin drip, however, this was not able to infuse for very long in the setting of ESRD and not being able to run any IV fluids. * Basal insulin was given and the insulin drip was held, with BSGs fairly stable thus far today. * Pt was NPO, so half dose of basal insulin provided this morning. Diet has been resumed, but BSGs have been soft and pt is scheduled for HD later today, so no additional Lantus was ordered. Will provide a supplemental dose of basal insulin tonight if BSGs rise again. * Will continue to follow and adjust regimen as indicated. PLAN FOR INPATIENT GLYCEMIC CONTROL: * Basal insulin * Lantus 8 units SQ x1 dose this morning * Lantus 5 units SQ x1 dose tonight if BSG greater than 180mg/dL * Bolus insulin * NovoLog per scale ACHS or Q6hrs while NPO * Goal Range: Low 110 mg/dL - High 140 mg/dL * Correction Factor: 35 mg/dL/unit * Nutritional / Prandial insulin per carb ratio of 1 unit per 10 grams CHO consumed
[2022-02-28] MEDS: HEPARIN SOD (PORCINE) 1000 UNIT/ML IV SCH ×3 (17:36→17:38)
--- NOTE | 2022-02-28 18:57 | Discharge Summary ---
Date of Service February 28, 2022 Admission HPI Per Admitting Provider Sourav is a 51 year old male with a PMH significant for type I controlled diabetes, chronic right foot ulcer, cyclic vomiting, end-stage renal disease on hemodialysis, GERD, hypertension, nonischemic cardiomyopathy, diabetic gastroparesis, peripheral neuropathy, retinopathy due to diabetes, lumbar radiculopathy, chronic anemia of chronic disease, CAD who presented to the [facility] ED on 02/27/22 with complaints of nausea and vomiting. In the ED the patient was found to be afebrile, hemodynamically stable and stable on room air. Labs were remarkable for a blood glucose of 750, AG of 21, bicarb of 17, corrected sodium of 130, potassium of 5.1, calcium of of 8.1, and alk phos of 134. Chest xray was negative for acute findings, KUB showed right- sided nephrolithiasis without other acute findings. In the ED the patient was given 6 units Insulin R, 500 mL NSS bolus, benadryl, compazine, and was subsequently placed on an Insulin drip. At the time of the exam the patient was sleeping in bed with his father sit ting bedside. The patient is tired but wakes easily and responds appropriately to questions. He states that he began having nausea and vomiting to due his gastroparesis approximately 24 hours ago. He has not been able to eat or drink much of anything over this time time. He deneis fevers and chills, has no abdominal pain, and does not make urine. He did have dialysis yesterday and denies any issues during his dialysis session. Admission Exam (Per Admitting) Constitutional Physical Exam: General:In no acute distress, stated age,ill-appearing HEENT:Normocephalic, atraumatic, no scleral icterus, pupils around round, symmetrical, and reactive to light,drymucus membranes, trachea midline, no thyromegaly Chest/Pulm:No respiratory distress, symmetrical chest expansion, clear breath sounds throughout Cardiac:RRR, systolic murmur noted Abdomen:Negative for ascites and bruising, normoactive bowel sounds, soft, non-tender to palpation throughout Musculoskeletal:Symmetrical and without signs of acute trauma, upper and lower extremities with full ROM, no atrophy, spasticity, or flaccidity Extremities:Radial, dorsalis pedis, and posterior tibial pulses are intact and symmetrical, no edema noted in the BL LE's Skin:Warm, dry, no rashes , lesions, or scars noted Neuro:Alert and oriented to person, place, month, year, and president, no focal defects, CN II-XII tested and intact, finger to nose test negative, no tremors noted Psych:No acute distress, fatigued, but cooperative during the exam Discharge Data Consultations 02/27/22 16:27 ED Decision to Admit Stat 02/27/22 17:06 Consult Nephrology Routine 02/27/22 17:18 Consult Nephrology Routine Diabetes Follow Up Diabetes Follow Up: Diabetes Follow-up Needed for HgbA1c >9% Hospital Course (1) DKA (diabetic ketoacidosis): Patient is HD #1 for hyperglycemia with possible early DKA- either way he responded to volume and insulin with improvement this morning -Patient is currently afebrile, hemodynamically stable, and stable on 2L NC -Patient has long history of gastroparesis from DM, had another exacerbation and has been vomiting for the past 24 hours -Was given 500 mL NSS bolus in the ED and started on Insulin drip, potassium was 5.1 prior to starting the drip -Spoke to Nephrology regarding fluid resuscitation moving foraward as he is on HD and does not make urine, appreciate their help, as long as BP is stable they recommend continuing with only the insulin infusion for now. If he would become hypotensive they recommend small boluses only. - Transitioned to sliding scale insulin - gap closed, Hco3 increasing, glucose controlled electrolytes acceptable and will get dialysis today --CT of the abdomen was obtained as right nephrolithiasis was noted on KUB, noted a stable and non-obstructing 7 mm stone in the right renal pelvis noted on 03/04/22, chronic prostatomegaly with chronic bladder outlet and rectal wall thickening liekly secondary to partial distention (a nonspecific proctitis is considered less likely). Patient has not had diarrhea or fevers/abdominal pain so unlikely proctitis. 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, carvedilol, losartan - agents held this morning in the setting of SBP <100- 500ml fluid bolus given - follow BP following dialysis- markedly improved and back to baseline (3) GERD (gastroesophageal reflux disease): - continue PROTONIX (4) Diabetic gastroparesis: -IV Compazine 5 mg IV q6h prn for nausea and vomiting - diet introduced this morning without any difficulty (5) Anxiety: - Continue sertraline, Remeron, and ativan (6) ESRD (end stage renal disease): -Gets HD MWF, had full dialysis session yesterday -[facility] Nephrology consult placed for assistance with HD while patient is admitted - Continue vitamin D and phos binder when able to eat - Dialysis today (7) Depression: -Continue setraline (8) CAD (coronary artery disease): -Continue aspirin (9) 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 Stable for discharge. Instructed to follow his glucose levels closely over the next few days. Supervising Physician Co-Signing Physician Notes FEED IN WORKER Supervision note: I have personally seen and examined the patient and discussed and verified the julien points of the history and physical along with the plan with RADHIKA Crooks with the following exceptions and/or additions: Pt feeling very well, eating and drinking, finished dialysis. Looks the best I've seen him in years. O- Vitals reviewed Gen: [AAOx3, NAD] HEENT: [anicteric sclerae, EOMI] CV: [RRR no mgr nl S1S2] Pulm: [CTAB no wcr] Abd: [+BS soft NT ND no masses or hernias] Ext: [no edema] Skin: [no rashes, warm/dry] Neuro: [full strength throughout] A/P-51 yo male here with DKA, N/V 2/2 gastroparesis flare. Completely resolved DKA and is agustín po. Stable for dc to home Coding Level of Care Code D/C DAY MANAGEMENT <30 MINS Diagnoses DKA (diabetic ketoacidosis) E11.10 Hypertension I10 Hypertension type: unspecified GERD (gastroesophageal reflux disease) K21.9 Diabetic gastroparesis E11.43; K31.84 Anxiety F41.9 ESRD (end stage renal disease) N18.6 Depression F33.9 Active/Remission status: remission status unspecified Depression Type: major depressive disorder Major depression recurrence: recurrent CAD (coronary artery disease) I25.10 Associated angina: without angina Coronary Disease-Associated Artery/Lesion type: [place] artery [place] vs. 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
[2022-02-28] MEDS ORDERED: LANTUS PER UNIT CHARGE SQ SCH (21:00)
== END 2022-02-28 20:01 | disposition home or self-care (01) | DRG 637 ==
LOC: ED 13:28 → SUATTDRO 16:43 → 2S 16:43

== ENCOUNTER 2022-03-01 05:03 | Inpatient (IN) ==
[2022-03-01] MEDS ORDERED: METOCLOPRAMIDE HCL INJ 5 MG/ML 2 ML VIAL IV ONE ×3 (05:26→09:54)
[2022-03-01] MEDS ORDERED: diphenhydrAMINE 50 MG/ML VIAL IV STA (05:26)
[2022-03-01] MEDS ORDERED: SODIUM CHLORIDE 0.9% 250 ML IV ONE (05:26)
[2022-03-01] MEDS ORDERED: FAMOTIDINE 20MG IV PUSH 20 MG/5 ML SYR IV STA (05:28)
--- NOTE | 2022-03-01 05:34 | Emergency Department Note ---
Impression & Plan DKA (diabetic ketoacidosis), Hypertension, Intractable nausea and vomiting, Gastroparesis, ESRD on hemodialysis ED Provider Note NAME: JERARDO PEREZ AGE: 51 SEX: M ARRIVES VIA: Ambulance INFORMANT: Patient ED PROVIDER(S): Massimo Nathan MD CHIEF COMPLAINT: n/v, hyperglycemia. PLAN: Disposition: Admit MEDICAL DECISION MAKING: The patient is a pleasant 51-year-old gentleman with a past medical history of end-stage renal disease on hemodialysis, insulin-dependent type 1 diabetes, gastroparesis who presents to the emergency department for recurrence of intractable nausea and vomiting after being discharged last night following admission for DKA in the setting of intractable nausea and vomiting in the setting of gastroparesis. Patient reports he took his nausea medicine but this did not help. He reports he is vomited at least 5 times able to keep anything down. He reports he did take his medications last night and feels as though he kept this down at least initially. Prior to his discharge yesterday the patient did receive hemodialysis and was doing well. On arrival patient is uncomfortable no acute distress, afebrile blood pressure 190s/80s in the setting of discomfort and vital signs otherwise stable. He appears clinically dry. Abdomen is benign. EKG without overt acute ischemia. WBC and platelets within normal limits. H/H similar to prior values. Chemistry with anion gap metabolic acidosis with anion gap of 20 and bicarbonate of 19. Potassium 3.5. Glucose 370. LFTs unremarkable. Lipase is not elevated. COV [id number] RNA, ASHLEY test was negative. Patient's VBG shows pH of 7.5 with component of respiratory alkalosis with PCO2 of 23. Suspect likely also has alkalosis secondary to cyclic vomiting, in addition to the patient's DKA. Patient was ordered for insulin bolus and drip. Case was discussed with Dr. Rey, [facility] hospitalist, and [facility] admitting team to evaluate the patient for admission. Triage Nursing notes reviewed and agree them. Prior medical records reviewed Vital Signs: reviewed and remarkable for hypertension. Differential diagnosis: Gastroenteritis, food borne illness, infections, appendicitis, diverticulitis, i nflammatory bowel disease, obstruction, GI bleed, biliary pathology, volvulus, as well as other pathologies. ER treatment provided: See below. Diagnostics interpreted by me: ECG: Sinus rhythm with first-degree AV block, 74 bpm, no ectopy, LVH with repolarization abnormality, nonspecific ST abnormality, no overt ST elevation or depression, QTC 519, QRS 106. Cardiac Monitoring: An order for continuous cardiac monitoring was placed and demonstrated Sinus rhythm with first-degree AV block, 74 bpm, no ectopy. Laboratory studies: See below Imaging studies: See below Consultation(s): Case was discussed with Dr. Rey, [facility] [place], and [facility] admitting team to evaluate the patient for admission. HPI: The patient is a pleasant 51-year-old gentleman with a past medical history of end-stage renal disease on hemodialysis, insulin-dependent type 1 diabetes, gastroparesis who presents to the emergency department for recurrence of intractable nausea and vomiting after being discharged last night following admission for DKA in the setting of intractable nausea and vomiting in the setting of gastroparesis. Patient reports he took his nausea medicine but this did not help. He reports he is vomited at least 5 times able to keep anything down. He reports he did take his medications last night and feels as though he kept this down at least initially. Prior to his discharge yesterday the patient did receive hemodialysis and was doing well. ROS: See above HPI for pertinent positives & negatives. A total of 10 systems reviewed and were otherwise negative. VITALS:See Below PHYSICAL EXAMINATION: GENERAL: Awake, alert, uncomfortable-appearing, in no distress HENT: Normocephalic, atraumatic. Oropharynx with dry mucous membranes and otherwise unremarkable. EYES: Normal conjunctiva. Sclera non-icteric. NECK: Supple. No nuchal rigidity. FROM. No JVD. No crepitus. RESPIRATORY: Clear to auscultation. CARDIAC: Regular rate, normal rhythm. Extremities warm and well perfused. Pulses equal. LUE fistula with palpable thrill. ABDOMEN: Soft, non-distended. No tenderness to palpation. No rebound or guarding. No masses. RECTAL: Deferred. MUSCULOSKELETAL: Chest examination reveals no tenderness. The back is s ymmetrical on inspection without obvious abnormality. There is no CVA tenderness to palpation. No joint edema. LOWER EXTREMITIES: Calves are equal size bilaterally and non-tender. No edema. No discoloration. NEURO: Normal sensorium. No sensory or motor deficits noted. SKIN: No rash or jaundice noted. ED COURSE: Critical Care: I have personally spent greater than 65 minutes of critical care time in the direct management of this patient. This includes bedside care, interpretation of diagnostic studies, and testing, discussion with consultants, patient, and family members, and other required patient management activities. This 65 minutes is in excess of all separately billable procedures. Massimo Nathan MD Past Med/Surg History Medical History Anemia of chronic disease Anxiety AV fistula left upper arm CAD (coronary artery disease) mild, non-obstructive CAD per 10/2018 cardiac cath> [facility] Cardiac murmur follows with Dr. Powell Cellulitis of chest wall Chronic pleural effusion PleurX catheter placed 01/24/21--removed 07/2021 Cyclical vomiting syndrome Depression Diabetes Diabetic retinopathy Dialysis patient Esophagitis ESRD (end stage renal disease) M,W,F (Follows with Dr. Lor Guadalupe; [facility]) GERD (gastroesophageal reflux disease) History of COVID-19 07/30, not hospitalized, congestion and headache-resolved History of pulmonary embolism 11/2020; unk etiology; was on warfarin (taken off 05/2021) Hypertension Lumbar radiculopathy Palliative care encounter Peripheral neuropathy Plantar wart, right foot Pulmonary embolism Recurrent pleural effusion on left Retinopathy due to secondary diabetes Surgical History H/O shoulder surgery RIGHT History of appendectomy History of cardiac cath 10/2018= no stents, no obstructive disease (at [facility]) History of cataract surgery History of esophagogastroduodenoscopy (EGD) (~03/08/20) History of hip surgery left HIP ARTHROSCOPY History of lithotripsy History of open reduction and internal fixation (ORIF) procedure right hip Nausea and vomiting after administration of anesthetic agent S/P arteriovenous (AV) fistula creation Family History Grandfather Myocardial infarction Grandfather (Maternal) Family history of diabetes mellitus Uncle Myocardial infarction Father Hypertension Mother Kidney stone Other No family history of adverse response to anesthesia Denies family history of Colon cancer Ovarian cancer Prostate cancer Breast cancer Social History Smoking Status: Never smoker Tobacco Type: Cigarettes Second Hand Exposure: No; Hx Alcohol Use: No Hx Substance Use: No Preferred Language: Marshallese Communication Ability: Effective Visual Impairment: No Limitations Hearing Ability: Normal Impersonator Character Required: No Beliefs That Will Affect Care: None marital status: Current Living Situation: Parent Current Living Situation Comment: lives with parents. current occupational status: disabled How many Children do You have: 2 Other Information That Helps Us Care for You: No Feels Safe at Home: Yes Safety Concerns: Feels Safe At This Time Childhood Exposure to Second-Hand Smoke: Yes Dental Care, Regularly: No Physical Activity Frequency: 1-2 Times per Week Seatbelt Use: always Sunscreen Use: No Assistive Devices: Glasses Allergies Allergies Allergy/AdvReac Type Severity Reaction Status Date / Time shellfish derived Allergy Severe anaphylaxis Verified 03/01/22 07:02 codeine Allergy Intermediate Hives Verified 03/01/22 07:02 promethazine Allergy Intermediate itchy/hives Verified 03/01/22 07:02 Home Meds Home Medications Medication Instructions Recorded Confirmed melatonin 3 mg tablet 3 mg PO HS 09/05/20 03/01/22 acetaminophen 325 mg capsule 650 mg PO Q4H PRN Pain (Scale 09/28/20 03/01/22 Score 1-3) carvedilol 25 mg tablet 50 mg PO BID 10/01/20 03/01/22 vitamin B complex-vitamin C-folic 1 tab PO QAM 03/13/21 03/01/22 acid 0.8 mg tablet (Renal Vitamin) ondansetron HCl 4 mg tablet 8 mg PO Q4 PRN nausea or vomiting 03/19/21 03/01/22 prochlorperazine maleate 5 mg 5 mg PO BID PRN Nausea 06/03/21 03/01/22 tablet (Compazine) cholecalciferol (vitamin D3) 50 50 mcg PO QAM 10/25/21 03/01/22 mcg (2,000 unit) capsule (Vitamin D3) mirtazapine 7.5 mg tablet 7.5 mg PO HS 12/29/21 03/01/22 sertraline 100 mg tablet 100 mg PO QAM 12/29/21 03/01/22 sertraline 25 mg tablet 25 mg PO QAM 12/29/21 03/01/22 sucroferric oxyhydroxide 500 mg 1,000 mg PO WM 12/29/21 03/01/22 chewable tablet (Velphoro) amlodipine 10 mg tablet 10 mg PO DAILY 03/01/22 03/01/22 hydralazine 50 mg tablet 50 mg PO BID 03/01/22 03/01/22 Previous Rx's Medication Instructions Recorded lorazepam 0.5 mg tablet 0.5 mg PO Q6H PRN Anxiety #60 tabs 03/27/21 losartan 100 mg tablet 100 mg PO QAM #90 tabs 06/04/21 insulin aspart U-100 100 unit/mL 5 unit (0.05 mL) subcut TIDM PRN 10/24/21 (3 mL) subcutaneous pen (Novolog sliding scale #15 mL Flexpen U-100 Insulin aspart) pen needle, diabetic 32 gauge x #500 ea 12/17/21" (BD Ultra-Fine Annalise Pen Needle) insulin glargine 100 unit/mL (3 16 unit (0.16 mL) subcut QAM #15 mL 01/23/22 mL) subcutaneous pen (Basaglar KwikPen U-100 Insulin) atorvastatin 10 mg tablet 10 mg PO QAM #90 tabs 02/03/22 pantoprazole 40 mg tablet,delayed 40 mg PO BID #60 tabs 02/03/22 release blood sugar diagnostic (Contour #100 ea 02/26/22 Next Test Strips) Results & Data (ED) Vital Signs Vital Signs - 24 hr 03/01/22 05:09 03/01/22 05:37 03/01/22 06:08 Temperature 36.5 C Temperature Source Oral Pulse Rate 80 Pulse Rate [Finger] 87 Pulse Rate from SpO2 Sensor Respiratory Rate 16 16 Blood Pressure 196/84 H Blood Pressure [Right Arm] 200/96 H Blood Pressure Mean 121 Blood Pressure Mean [Right Arm] 130 Pulse Oximetry 100 100 96 Oxygen Delivery Method Room Air Room Air Room Air Sepsis Recent Fever Within 48 Hours No Sepsis New/Unexplained Change in Mental Status No Sepsis Action Taken by Nursing No Action Required 03/01/22 05:09 03/01/22 05:10 03/01/22 05:20 Temperature Temperature Source Pulse Rate 78 78 76 Pulse Rate [Finger] Pulse Rate from SpO2 Sensor 79 78 76 Respiratory Rate 15 19 16 Blood Pressure Blood Pressure [Right Arm] Blood Pressure Mean Blood Pressure Mean [Right Arm] Pulse Oximetry 100 100 100 Oxygen Delivery Method Sepsis Recent Fever Within 48 Hours Sepsis New/Unexplained Change in Mental Status Sepsis Action Taken by Nursing 03/01/22 05:30 03/01/22 05:40 03/01/22 05:50 Temperature Temperature Source Pulse Rate 75 71 74 Pulse Rate [Finger] Pulse Rate from SpO2 Sensor 75 72 74 Respiratory Rate 22 19 13 Blood Pressure Blood Pressure [Right Arm] Blood Pressure Mean Blood Pressure Mean [Right Arm] Pulse Oximetry 100 99 100 Oxygen Delivery Method Sepsis Recent Fever Within 48 Hours Sepsis New/Unexplained Change in Mental Status Sepsis Action Taken by Nursing 03/01/22 06:00 03/01/22 06:00 03/01/22 06:10 Temperature Temperature Source Pulse Rate 72 71 Pulse Rate [Finger] Pulse Rate from SpO2 Sensor 72 71 Respiratory Rate 13 14 Blood Pressure 220/83 H Blood Pressure [Right Arm] Blood Pressure Mean 128 Blood Pressure Mean [Right Arm] Pulse Oximetry 91 94 Oxygen Delivery Method Sepsis Recent Fever Within 48 Hours Sepsis New/Unexplained Change in Mental Status Sepsis Action Taken by Nursing 03/01/22 06:20 03/01/22 06:30 03/01/22 06:40 Temperature Temperature Source Pulse Rate 73 72 73 Pulse Rate [Finger] Pulse Rate from SpO2 Sensor 72 72 72 Respiratory Rate 10 L 24 10 L Blood Pressure Blood Pressure [Right Arm] Blood Pressure Mean Blood Pressure Mean [Right Arm] Pulse Oximetry 99 93 90 Oxygen Delivery Method Sepsis Recent Fever Within 48 Hours Sepsis New/Unexplained Change in Mental Status Sepsis Action Taken by Nursing 03/01/22 06:50 03/01/22 07:00 03/01/22 07:00 Temperature Temperature Source Pulse Rate 76 74 Pulse Rate [Finger] Pulse Rate from SpO2 Sensor 76 74 Respiratory Rate 11 L 15 Blood Pressure 222/87 H Blood Pressure [Right Arm] Blood Pressure Mean 132 Blood Pressure Mean [Right Arm] Pulse Oximetry 100 100 Oxygen Delivery Method Sepsis Recent Fever Within 48 Hours Sepsis New/Unexplained Change in Mental Status Sepsis Action Taken by Nursing 03/01/22 07:10 03/01/22 07:20 03/01/22 07:30 Temperature Temperature Source Pulse Rate 72 76 76 Pulse Rate [Finger] Pulse Rate from SpO2 Sensor 72 76 76 Respiratory Rate 7 L 14 17 Blood Pressure Blood Pressure [Right Arm] Blood Pressure Mean Blood Pressure Mean [Right Arm] Pulse Oximetry 97 100 100 Oxygen Delivery Method Sepsis Recent Fever Within 48 Hours Sepsis New/Unexplained Change in Mental Status Sepsis Action Taken by Nursing 03/01/22 07:31 03/01/22 07:31 Temperature Temperature Source Pulse Rate 76 Pulse Rate [Finger] Pulse Rate from SpO2 Sensor 76 Respiratory Rate 17 Blood Pressure 243/91 H Blood Pressure [Right Arm] Blood Pressure Mean 141 Blood Pressure Mean [Right Arm] Pulse Oximetry 99 Oxygen Delivery Method Sepsis Recent Fever Within 48 Hours Sepsis New/Unexplained Change in Mental Status Sepsis Action Taken by Nursing Laboratory Data Attestation: I reviewed the patient's lab results. Result diagrams: 03/01/22 05:23 03/01/22 19:05 Lab Results 03/01/22 03/01/22 03/01/22 Range/Units 05:09 05:23 05:23 WBC 8.27 (4.8-10.8) K/ul RBC 3.97 L (4.63-6.08) M/uL Hgb 13.0 L (14.0-18.0) g/dl Hct 36.9 L (40.1-51.0) % MCV 92.9 D (80.0-100.0) fL MCH 32.7 (25.0-34.0) pg MCHC 35.2 (32.0-36.0) g/dL RDW Std Deviation 40.8 (36.4-46.3) fL RDW Coeff of Kami 12.0 (11.5-14.5) % Plt Count 325 (130-400) K/uL MPV 9.8 (9.4-12.4) fL Immature Gran % (Auto) 0.6 % Neut % (Auto) 68.4 % Lymph % (Auto) 18.7 % Sampson % (Auto) 10.5 % Eos % (Auto) 1.0 % Baso % (Auto) 0.8 % Neut # (Auto) 5.65 (1.4-6.5) K/uL Lymph # (Auto) 1.55 (1.2-3.4) K/uL Sampson # (Auto) 0.87 H (0.24-0.82) K/uL Eos # (Auto) 0.08 (0-0.50) K/uL Baso # (Auto) 0.07 (0-0.2) K/uL Immature Gran # (Auto) 0.05 H (0.00-0.02) K/uL VBG pH (7.36-7.41) VBG pCO2 (38-50) mmHg VBG pO2 mmHg VBG HCO3 mmol/L VBG O2 Saturation % VBG Base Excess mEq/L Sodium 132 L (136-145) mmol/L Potassium 3.5 D (3.5-5.1) mmol/L Chloride 93 L (98-107) mmol/L Carbon Dioxide 19 L (21-32) mmol/L Anion Gap 20 H (3-11) BUN 32 H D (6-23) mg/dl Creatinine 5.64 H* D (0.6-1.4) mg/dl Est Cr Clr Drug Dosing 13.7 ml/min Est GFR ( Amer) 12.4 ml/min Est GFR (Non-Af Amer) 10.7 ml/min BUN/Creatinine Ratio 5.7 L (10-20) Glucose 370 H* (70-99(Fasting)) mg/dl POC Glucose 373 H* (70-99) mg/dl Calcium 9.0 (8.5-10.1) mg/dl Phosphorus 2.5 D (2.5-4.9) mg/dl Magnesium 2.2 (1.7-2.4) mg/dl Total Bilirubin 0.6 (0.2-1.0) mg/dl Direct Bilirubin 0.0 (0-0.2) mg/dl AST 13 (13-39) U/L ALT 17 (7-52) U/L Alkaline Phosphatase 127 H (34-104) U/L Total Protein 7.3 (6.0-8.3) gm/dl Albumin 4.4 (3.4-5.0) gm/dl Globulin 2.9 (2.5-4.0) gm/dl Albumin/Globulin Ratio 1.5 (0.9-2) Lipase 21 (11-82) U/L SARS-CoV-2, RNA, NAAT (NEGATIVE) 03/01/22 03/01/22 Range/Units 05:43 06:05 WBC (4.8-10.8) K/ul RBC (4.63-6.08) M/uL Hgb (14.0-18.0) g/dl Hct (40.1-51.0) % MCV (80.0-100.0) fL MCH (25.0-34.0) pg MCHC (32.0-36.0) g/dL RDW Std Deviation (36.4-46.3) fL RDW Coeff of Kami (11.5-14.5) % Plt Count (130-400) K/uL MPV (9.4-12.4) fL Immature Gran % (Auto) % Neut % (Auto) % Lymph % (Auto) % Sampson % (Auto) % Eos % (Auto) % Baso % (Auto) % Neut # (Auto) (1.4-6.5) K/uL Lymph # (Auto) (1.2-3.4) K/uL Sampson # (Auto) (0.24-0.82) K/uL Eos # (Auto) (0-0.50) K/uL Baso # (Auto) (0-0.2) K/uL Immature Gran # (Auto) (0.00-0.02) K/uL VBG pH 7.57 H (7.36-7.41) VBG pCO2 23 L (38-50) mmHg VBG pO2 69 mmHg VBG HCO3 21 mmol/L VBG O2 Saturation 96.8 % VBG Base Excess 0.7 mEq/L Sodium (136-145) mmol/L Potassium (3.5-5.1) mmol/L Chloride (98-107) mmol/L Carbon Dioxide (21-32) mmol/L Anion Gap (3-11) BUN (6-23) mg/dl Creatinine (0.6-1.4) mg/dl Est Cr Clr Drug Dosing ml/min Est GFR ( Amer) ml/min Est GFR (Non-Af Amer) ml/min BUN/Creatinine Ratio (10-20) Glucose (70-99(Fasting)) mg/dl POC Glucose (70-99) mg/dl Calcium (8.5-10.1) mg/dl Phosphorus (2.5-4.9) mg/dl Magnesium (1.7-2.4) mg/dl Total Bilirubin (0.2-1.0) mg/dl Direct Bilirubin (0-0.2) mg/dl AST (13-39) U/L ALT (7-52) U/L Alkaline Phosphatase (34-104) U/L Total Protein (6.0-8.3) gm/dl Albumin (3.4-5.0) gm/dl Globulin (2.5-4.0) gm/dl Albumin/Globulin Ratio (0.9-2) Lipase (11-82) U/L SARS-CoV-2, RNA, NAAT NEGATIVE (NEGATIVE) Administered Medications Amlodipine Besylate (Amlodipine Besylate 5 Mg Tab) 10 mg PO DAILY [facility] Stop: 03/31/22 09:53 Last Admin: 03/01/22 12:52 Dose: Not Given Documented By: STEPHANIE Atorvastatin Calcium (Atorvastatin 10 Mg Tab) 10 mg PO QAM JACKI Stop: 03/31/22 09:53 Last Admin: 03/01/22 12:52 Dose: Not Given Documented By: STEPHANIE Carvedilol (Carvedilol 25 Mg Tab) 50 mg PO BID [facility] Stop: 03/31/22 09:53 Last Admin: 03/01/22 21:00 Dose: 50 mg Documented By: Admin: 03/01/22 12:53 Dose: Not Given Documented By: STEPHANIE Heparin Sodium (Porcine) (Heparin Sod 5,000 Unit/0.5 Ml Vial) 5,000 units SQ Q12 JACKI Stop: 03/31/22 20:59 Last Admin: 03/01/22 21:01 Dose: Not Given Documented By: LONNIE Hydralazine HCl (Hydralazine Tab 50 Mg Tab) 50 mg PO BID [facility] Stop: 03/31/22 09:53 Last Admin: 03/01/22 21:00 Dose: 50 mg Documented By: Admin: 03/01/22 12:53 Dose: Not Given Documented By: STEPHANIE Hydralazine HCl (Hydralazine Hcl 20 Mg/Ml Vial) 5 mg IV Q6 PRN PRN Reason: sbp>190 and/or DBP >95 Stop: 03/31/22 14:24 Last Admin: 03/01/22 15:54 Dose: 5 mg Documented By: STEPHANIE Pantoprazole Sodium 40 mg/ (Syringe) 10 mls @ 5 mls/min IV BID JACKI Stop: 03/31/22 20:59 Last Admin: 03/01/22 21:00 Dose: 5 mls/min Documented By: LONNIE Parenteral Electrolytes (Normosol-R) 1,000 mls @ 95 mls/hr IV .[id number] JACKI Stop: 03/31/22 14:59 Last Admin: 03/01/22 15:15 Dose: 95 mls/hr Documented By: STEPHANIE Insulin Aspart (Insulin Aspart Per Unit) 0 units SC [facility] Stop: 03/31/22 11:29 Last Admin: 03/01/22 17:17 Dose: 4 units Documented By: STEPHANIE Co-signed By: AURORA Admin: 03/01/22 12:23 Dose: 2 units Documented By: STEPHANIE Co-signed By: CA Losartan Potassium (Losartan Potassium 50 Mg Tab) 100 mg PO [facility] Stop: 03/31/22 09:53 Last Admin: 03/01/22 12:53 Dose: Not Given Documented By: STEPHANIE Melatonin (Melatonin 3 Mg Tab) 3 mg PO [facility] Stop: 03/31/22 20:59 Last Admin: 03/01/22 21:00 Dose: 3 mg Documented By: LONNIE Metoclopramide HCl (Metoclopramide Hcl Inj 5 Mg/Ml 2 Ml Vial) 10 mg IV Q8H PRN PRN Reason: nausea Stop: 03/31/22 17:44 Last Admin: 03/01/22 18:10 Dose: 10 mg Documented By: STEPHANIE Mirtazapine (Mirtazapine Tab 15 Mg Tab) 7.5 mg PO [facility] Stop: 03/31/22 20:59 Last Admin: 03/01/22 21:00 Dose: 7.5 mg Documented By: LONNIE Miscellaneous (*Sucroferric Oxyhydroxide*Order Awaiting Action) 1 each N/A QS [facility] Stop: 03/31/22 15:59 Last Admin: 03/01/22 14:50 Dose: Not Given Documented By: STEPHANIE Sertraline HCl (Sertraline Hcl 50 Mg Tablet) 25 mg PO [facility] Stop: 03/31/22 09:53 Last Admin: 03/01/22 12:53 Dose: Not Given Documented By: STEPHANIE Sertraline HCl (Sertraline Hcl 100 Mg Tablet) 100 mg PO [facility] Stop: 03/31/22 09:53 Last Admin: 03/01/22 12:53 Dose: Not Given Documented By: STEPHANIE Vitamin D (Cholecalciferol 1,000 Units 25 Mcg Tab) 2,000 units PO [facility] Stop: 03/31/22 10:14 Last Admin: 03/01/22 12:53 Dose: Not Given Documented By: STEPHANIE Discontinued Medications Diphenhydramine HCl (Diphenhydramine 50 Mg/Ml Vial) 25 mg IV NOW STA Stop: 03/01/22 05:27 Last Admin: 03/01/22 05:42 Dose: 25 mg Documented By: KIM Hydralazine HCl (Hydralazine Hcl 20 Mg/Ml Vial) 10 mg IV NOW STA Stop: 03/01/22 09:31 Last Admin: 03/01/22 09:48 Dose: 10 mg Documented By: [id number] Hydralazine HCl (Hydralazine Hcl 20 Mg/Ml Vial) 10 mg IV NOW STA Stop: 03/01/22 09:55 Last Admin: 03/01/22 11:34 Dose: 10 mg Documented By: STEPHANIE Sodium Chloride (Nss) 250 mls @ 999 mls/hr IV .Q16M ONE Stop: 03/01/22 05:41 Last Infusion: 03/01/22 06:00 Dose: 0 mls/hr Documented By: Admin: 03/01/22 05:42 Dose: 999 mls/hr Documented By: KIM Famotidine (Pepcid 20mg Iv Push) 20 mg in 5 mls @ 2.5 mls/min IV NOW STA Stop: 03/01/22 05:29 Last Admin: 03/01/22 05:42 Dose: 2.5 mls/min Documented By: KIM Insulin Human Regular 250 (units/ Sodium Chloride) 250 mls @ 0 mls/hr IV .Q0M JACKI; Protocol Stop: 03/31/22 06:44 Last Titration: 03/01/22 13:14 Dose: 0 units/hr, 0 mls/hr Documented By: STEPHANIE Co-signed By: LORAINE Titration: 03/01/22 10:19 Dose: 0 units/hr, 0 mls/hr Documented By: [id number] Co-signed By: MARCI Titration: 03/01/22 09:11 Dose: 6 units/hr, 6 mls/hr Documented By: [id number] Co-signed By: MARCI Admin: 03/01/22 08:12 Dose: 6 units/hr, 6 mls/hr Documented By: [id number] Co-signed By: MARCI Potassium Chloride (K Dom / Wtr) 10 meq in 100 mls @ 100 mls/hr IV Q1H JACKI; Protocol Stop: 03/01/22 09:44 Last Infusion: 03/01/22 13:13 Dose: 0 mls/hr Documented By: Admin: 03/01/22 09:14 Dose: 100 mls/hr Documented By: Infusion: 03/01/22 09:06 Dose: 100 mls/hr Documented By: Admin: 03/01/22 08:06 Dose: 100 mls/hr Documented By: [id number] Prochlorperazine (Compazine) 1 mls @ 1 mls/min IV ONE ONE Stop: 03/01/22 07:02 Last Admin: 03/01/22 07:57 Dose: Not Given Documented By: [id number] Lactated Ringer's (Lr) 500 mls @ 999 mls/hr IV .Q31M ONE Stop: 03/01/22 07:39 Last Infusion: 03/01/22 08:20 Dose: 0 mls/hr Documented By: [id number] Admin: 03/01/22 07:32 Dose: 999 mls/hr Documented By: [id number] Parenteral Electrolytes (Normosol-R) 1,000 mls @ 90 mls/hr IV .Q11H7M JACKI Stop: 03/31/22 09:53 Last Infusion: 03/01/22 13:13 Dose: 0 mls/hr Documented By: Admin: 03/01/22 10:36 Dose: 90 mls/hr Documented By: [id number] Lorazepam 0.5 mg/ Syringe 0.5 mls @ 2 mls/min IV NOW STA Stop: 03/01/22 11:49 Last Admin: 03/01/22 13:06 Dose: 2 mls/min Documented By: STEPHANIE Pantoprazole Sodium 40 mg/ (Syringe) 10 mls @ 5 mls/min IV NOW ONE Stop: 03/01/22 13:03 Last Admin: 03/01/22 14:50 Dose: 5 mls/min Documented By: STEPHANIE Potassium Chloride/Dextrose/Sod Cl (D5w And 1/2nss + 20meq Kcl) 20 meq in 1,000 mls @ 90 mls/hr IV .Q11H7M JACKI Stop: 03/31/22 13:44 Last Infusion: 03/01/22 15:01 Dose: 0 mls/hr Documented By: Admin: 03/01/22 14:50 Dose: 90 mls/hr Documented By: STEPHANIE Parenteral Electrolytes (Normosol-R) 250 mls @ 999 mls/hr IV .Q16M ONE Stop: 03/01/22 15:07 Last Infusion: 03/01/22 16:02 Dose: 0 mls/hr Documented By: Admin: 03/01/22 15:15 Dose: 999 mls/hr Documented By: STEPHANIE Insulin Glargine (Lantus Per Unit Charge) 8 units SQ 1215 JACKI Stop: 03/01/22 14:00 Last Admin: 03/01/22 12:23 Dose: 8 units Documented By: STEPHANIE Co-signed By: HOPE Metoclopramide HCl (Metoclopramide Hcl Inj 5 Mg/Ml 2 Ml Vial) 5 mg IV ONE ONE Stop: 03/01/22 05:27 Last Admin: 03/01/22 05:42 Dose: 5 mg Documented By: KIM Metoclopramide HCl (Metoclopramide Hcl Inj 5 Mg/Ml 2 Ml Vial) 5 mg IV ONE ONE Stop: 03/01/22 09:31 Last Admin: 03/01/22 09:47 Dose: 5 mg Documented By: [id number] Metoclopramide HCl (Metoclopramide Hcl Inj 5 Mg/Ml 2 Ml Vial) 5 mg IV ONE ONE Stop: 03/01/22 09:55 Last Admin: 03/01/22 11:34 Dose: 5 mg Documented By: STEPHANIE Chirinos (Dka Goal Range 150-250 Mg/Dl) 1 each N/A ONE ONE Stop: 03/01/22 06:45 Last Admin: 03/01/22 11:35 Dose: 1 each Documented By: STEPHANIE Chirinos (Stat Iv Infusion Titration Per Protocol) 1 each N/A NOW STA Stop: 03/01/22 06:45 Last Admin: 03/01/22 12:13 Dose: Not Given Documented By: STEPHANIE Ondansetron HCl (Ondansetron 8mg Od Tab) 8 mg PO Q4H PRN PRN Reason: Nausea And Vomiting Stop: 03/31/22 12:41 Last Admin: 03/01/22 13:21 Dose: 8 mg Documented By: STEPHANIE Pantoprazole Sodium (Pantoprazole 40 Mg Tab) 40 mg PO BID JACKI Stop: 03/31/22 09:53 Last Admin: 03/01/22 12:53 Dose: Not Given Documented By: [facility] Discharge Plan Visit Data Chief Complaint: Hyperglycemia ED Provider: Massimo Nathan Discharge Problem: DKA (diabetic ketoacidosis), Hypertension, Intractable nausea and vomiting, Gastroparesis, ESRD on hemodialysis Patient Disposition: Admitted As Inpatient Discharge Instructions Interventions: ED Discharge Assessment Last Done: 03/01/22 11:02 : DKA (diabetic ketoacidosis) Qualifiers: Diabetes mellitus type: type 1 Diabetes mellitus complication detail: without coma Qualified Code(s): E10.10 - Type 1 diabetes mellitus with ketoacidosis without coma
[2022-03-01 06:03] LABS: Base Excess VBG 0.7 mEq/L; HCO3 VBG 21 mmol/L; Oxygen Saturation VBG 96.8 %; PCO2 VBG 23 mmHg (38-50); PO2 VBG 69 mmHg; pH VBG 7.57 (7.36-7.41)
[2022-03-01 06:24] LABS: Basophils # (auto) 0.07 K/uL (0-0.2); Basophils % (auto) 0.8 %; Eosinophils # (auto) 0.08 K/uL (0-0.50); Hematocrit (blood only) 36.9 % (40.1-51.0); Immature Granulocytes # (auto) 0.05 K/uL (0.00-0.02); Immature Granulocytes % (auto) 0.6 %; Lymphocytes # (auto) 1.55 K/uL (1.2-3.4); Lymphocytes % (auto) 18.7 %; Mean Corpuscular Hemoglobin 32.7 pg (25.0-34.0); Mean Corpuscular Hgb Conc 35.2 g/dL (32.0-36.0); Mean Corpuscular Volume 92.9 fL (80.0-100.0); Mean Platelet Volume 9.8 fL (9.4-12.4); Monocytes # (auto) 0.87 K/uL (0.24-0.82); Monocytes % (auto) 10.5 %; Neutrophils # (auto) 5.65 K/uL (1.4-6.5); Neutrophils % (auto) 68.4 %; Platelet Count 325 K/uL (130-400); RDW Standard Deviation 40.8 fL (36.4-46.3); Red Blood Count 3.97 M/uL (4.63-6.08); White Blood Count 8.27 K/ul (4.8-10.8)
[2022-03-01 06:35] LABS: Albumin Globulin Ratio 1.5 (0.9-2); Albumin Level 4.4 gm/dl (3.4-5.0); BUN Creatinine Ratio 5.7 (10-20); Bilirubin,Total 0.6 mg/dl (0.2-1.0); Creatinine Clr Calc Pharmacy 13.7 ml/min; Est GFR (African American) 12.4 ml/min; Est GFR (Non-African American) 10.7 ml/min; Globulin 2.9 gm/dl (2.5-4.0); Magnesium 2.2 mg/dl (1.7-2.4); Phosphorus 2.5 mg/dl (2.5-4.9); Potassium 3.5 mmol/L (3.5-5.1); Total Protein 7.3 gm/dl (6.0-8.3)
[2022-03-01] MEDS ORDERED: DKA GOAL RANGE 150-250 mg/dl ONE (06:44)
[2022-03-01] MEDS ORDERED: STAT IV Infusion **Titration per Protocol STA ×3 (06:44→09:54)
[2022-03-01] MEDS ORDERED: INSULIN REGULAR 250 UNITS in SODIUM CHLORIDE 0.9% 247.5 ML IV SCH ×2 (06:45→09:54)
[2022-03-01] MEDS ORDERED: PROCHLORPERAZINE 1 ML IV ONE (07:01)
[2022-03-01] MEDS ORDERED: LACTATED RINGER'S 500 ML IV ONE (07:09)
--- NOTE | 2022-03-01 07:12 | History & Physical Report ---
Date of Service March 01, 2022 Assessment & Plan (1) DKA (diabetic ketoacidosis): Plan: Hyperglycemia with elevated gap, HCO3 19- IVF boluses as needed for volume replacement - insulin infusion until gap decreased and glucose <250 - Normosol for fluids - D5/1/2 ns with KCL once BG <250 - Follow q1 hour BG - glycemic consultation for transition - Labs obtained 4 hours after admission with GAP of 14 BG 170 electrolytes improved. Transition with subq insulin, D5 0.45%NS with 20MEQ KCL started at 90ml/hour. Control Nausea/vomiting at this time. (2) Diabetic gastroparesis: Plan: Acute on chronic - likely exacerbated these last two admissions by elevated blood glucose levels - has done very well following his addition of remeron - continue remeron - antiemetics, h2, ppi - replete intravascular volume and glucose control (3) Hypertension: Plan: Acute on chronic - will provide IV agents if unable to tolerate his PO regime- start with IV hydralazine then PRN labetalol - Goal <200 - continue with his Carvedilol, amlodipine, and Cozaar if able (4) GERD (gastroesophageal reflux disease): Plan: Continue PPI and H2 (5) Anxiety: Plan: Continue ativan Continue sertraline - IV Ativan x1 for nausea as well as anxiety (6) ESRD (end stage renal disease): Plan: Dialysis dependant- MWF dialyized 02/28 with improvement in hemodynamics - nephrology consultation appreciated (7) Nonischemic cardiomyopathy: Plan: HX stable continue BP control and glucose control follow no acute needs History of Present Illness Primary Care Provider: Abbi Ames MD 51 YOM with medical history of: DM I, ESRD on dialysis, gastroparesis, pleural effusions (resolved), HTN, NICM, (ef 40-45%) pulmonary embolism (previously on warfarin dc'd 05/28). Patient is readmission following discharge on 02/28 for DKA. The patient went home on the evening of 02/28 following dialysis and eating full dinner without vomiting and glucose levels controlled. Patient states that he went home ate a frozen soft pretzel and some snacks, checked his glucose and was 450 so he gave himself his basal insulin and went to bed. He could not tell me why he did not cover himself without any other insulin. He states he awakened around 0200 in the morning with vomiting and abdominal pain. He came back to the EMD and noted to be in hyperglycemic again with HCO3 of 19 and elevated gap. His VBG is mixed alkalosis. Patient was started on insulin drip for glucose of 370. Hospitalist was called for admission. Patient remains with n/v BP marginal elevated but has had some >200 with review. Will replace some of his potassium IV with initiation of insulin. Will give additional 500 ml of ringers solution. Admit to PCU with hopes of weaning off insulin infusion today. Will need to control his vomiting and blood pressure management IV if unable to tolerate PO. Will consult nephrology for any dialysis needs over the weekend. COVID: NEGATIVE Allergies Allergy/AdvReac Type Severity Reaction Status Date / Time shellfish derived Allergy Severe anaphylaxis Verified 03/01/22 07:02 codeine Allergy Intermediate Hives Verified 03/01/22 07:02 promethazine Allergy Intermediate itchy/hives Verified 03/01/22 07:02 Home Medications Medication Instructions Recorded Confirmed Type melatonin 3 mg tablet 3 mg PO HS 09/05/20 03/01/22 History acetaminophen 325 mg capsule 650 mg PO Q4H PRN Pain (Scale 09/28/20 03/01/22 History Score 1-3) carvedilol 25 mg tablet 50 mg PO BID 10/01/20 03/01/22 History vitamin B complex-vitamin C-folic 1 tab PO QAM 03/13/21 03/01/22 History acid 0.8 mg tablet (Renal Vitamin) ondansetron HCl 4 mg tablet 8 mg PO Q4 PRN nausea or vomiting 03/19/21 03/01/22 History lorazepam 0.5 mg tablet 0.5 mg PO Q6H PRN Anxiety #60 tabs 03/27/21 03/01/22 Rx prochlorperazine maleate 5 mg 5 mg PO BID PRN Nausea 06/03/21 03/01/22 History tablet (Compazine) losartan 100 mg tablet 100 mg PO QAM #90 tabs 06/04/21 03/01/22 Rx insulin aspart U-100 100 unit/mL 5 unit (0.05 mL) subcut TIDM PRN 10/24/21 03/01/22 Rx (3 mL) subcutaneous pen (Novolog sliding scale #15 mL Flexpen U-100 Insulin aspart) cholecalciferol (vitamin D3) 50 50 mcg PO QAM 10/25/21 03/01/22 History mcg (2,000 unit) capsule (Vitamin D3) pen needle, diabetic 32 gauge x #500 ea 12/17/21 02/26/22 Rx " (BD Ultra-Fine Annalise Pen Needle) mirtazapine 7.5 mg tablet 7.5 mg PO HS 12/29/21 03/01/22 History sertraline 100 mg tablet 100 mg PO QAM 12/29/21 03/01/22 History sertraline 25 mg tablet 25 mg PO QAM 12/29/21 03/01/22 History sucroferric oxyhydroxide 500 mg 1,000 mg PO WM 12/29/21 03/01/22 History chewable tablet (Velphoro) insulin glargine 100 unit/mL (3 16 unit (0.16 mL) subcut QAM #15 mL 01/23/22 03/01/22 Rx mL) subcutaneous pen (Basaglar KwikPen U-100 Insulin) atorvastatin 10 mg tablet 10 mg PO QAM #90 tabs 02/03/22 03/01/22 Rx pantoprazole 40 mg tablet,delayed 40 mg PO BID #60 tabs 02/03/22 03/01/22 Rx release blood sugar diagnostic (Contour #100 ea 02/26/22 02/26/22 Rx Next Test Strips) amlodipine 10 mg tablet 10 mg PO DAILY 03/01/22 03/01/22 History hydralazine 50 mg tablet 50 mg PO BID 03/01/22 03/01/22 History Past Med/Surg History Medical History Anemia of chronic disease Anxiety AV fistula left upper arm CAD (coronary artery disease) mild, non-obstructive CAD per 10/2018 cardiac cath> [facility] Cardiac murmur follows with Dr. Powell Cellulitis of chest wall Chronic pleural effusion PleurX catheter placed 01/24/21--removed 07/2021 Cyclical vomiting syndrome Depression Diabetes Diabetic retinopathy Dialysis patient Esophagitis ESRD (end stage renal disease) M,W,F (Follows with Dr. Lor Guadalupe; [facility]) GERD (gastroesophageal reflux disease) History of COVID-19 2/22, not hospitalized, congestion and headache-resolved History of pulmonary embolism 11/2020; unk etiology; was on warfarin (taken off 05/2021) Hypertension Lumbar radiculopathy Palliative care encounter Peripheral neuropathy Plantar wart, right foot Pulmonary embolism Recurrent pleural effusion on left Retinopathy due to secondary diabetes Surgical History H/O shoulder surgery RIGHT History of appendectomy History of cardiac cath 10/2018= no stents, no obstructive disease (at [facility]) History of cataract surgery History of esophagogastroduodenoscopy (EGD) (~03/08/20) History of hip surgery left HIP ARTHROSCOPY History of lithotripsy History of open reduction and internal fixation (ORIF) procedure right hip Nausea and vomiting after administration of anesthetic agent S/P arteriovenous (AV) fistula creation Family History Grandfather Myocardial infarction Grandfather (Maternal) Family history of diabetes mellitus Uncle Myocardial infarction Father Hypertension Mother Kidney stone Other No family history of adverse response to anesthesia Denies family history of Colon cancer Ovarian cancer Prostate cancer Breast cancer Social History Smoking Status: Never smoker Tobacco Type: Cigarettes Second Hand Exposure: No; Hx Alcohol Use: No Hx Substance Use: No Preferred Language: Yemeni Communication Ability: Effective Visual Impairment: No Limitations Hearing Ability: Normal Resource Recovery Engineer Required: No Beliefs That Will Affect Care: None marital status: Current Living Situation: Parent Current Living Situation Comment: lives with parents. current occupational status: disabled How many Children do You have: 2 Other Information That Helps Us Care for You: No Feels Safe at Home: Yes Safety Concerns: Feels Safe At This Time Childhood Exposure to Second-Hand Smoke: Yes Dental Care, Regularly: No Physical Activity Frequency: 1-2 Times per Week Seatbelt Use: always Sunscreen Use: No Assistive Devices: Glasses Review of Systems Review of Systems: REVIEW OF SYSTEMS: Constitutional: Weak and tired Eyes: No diplopia, no worsening or blurred vision ENT: normal hearing, no trouble swallowing Respiratory: No cough, sputum, dyspnea at rest or on exertion Cardiovascular: No chest pain, tightness or palpitations Abdomen: (+) pain, nausea, vomiting, no diarrhea or constipation Musculoskeletal: No joint pain, calf pain, swelling Neurologic: No weakness, numbness/tingling, or balance problems Psychiatric: (+) depression, Skin: No rash or itch Physical Exam Physical Exam: PHYSICAL EXAM: General: awakens easily, alert oriented, fatigued Head: Normocephalic, atraumatic ENT: PERRL, EOMI, no pharyngeal exudate, mucous membranes dry Neuro: AAO x 3, speech clear and appropriate, strength intact bilaterally 5/5, sensation intact and equal all extremities and dermatomes, no pronator drift Chest: equal rise and fall of the chest, no accessory muscle use, no heaves or thrills, Clear to auscultation, on room air, Cardiac: Regular rate and rhythm, telemetry reviewed, skin warm dry, cap refill <3 seconds, peripheral pusles +2 no JVD, no murmur, no edema GI: NABS x 4 quadrants, soft, nontender to palpation, no rebound, guarding or tenderness, dry heaving with some bilious emesis noted, no blood : makes urine occasionally, none at this time Extremities: Normal inspection, no peripheral edema or erythema, calfs nontender to palpation Skin: no rash or erythema Results & Data Results & Data ([facility]) Vital Signs (Past 12 Hours) Vital Signs Temp Pulse Pulse Resp BP BP Pulse Ox 03/01/22 06:08 87 16 200/96 H 96 03/01/22 05:37 100 03/01/22 05:09 36.5 C 80 16 196/84 H 100 O2 Del Method 03/01/22 06:08 Room Air 03/01/22 05:37 Room Air 03/01/22 05:09 Room Air Laboratory Results Abnormal lab results 03/01/22 03/01/22 03/01/22 Range/Units 05:09 05:23 05:23 RBC 3.97 L (4.63-6.08) M/uL Hgb 13.0 L (14.0-18.0) g/dl Hct 36.9 L (40.1-51.0) % Dyer # (Auto) 0.87 H (0.24-0.82) K/uL Immature Gran # (Auto) 0.05 H (0.00-0.02) K/uL VBG pH (7.36-7.41) VBG pCO2 (38-50) mmHg Sodium 132 L (136-145) mmol/L Chloride 93 L (98-107) mmol/L Carbon Dioxide 19 L (21-32) mmol/L Anion Gap 20 H (3-11) BUN 32 H D (6-23) mg/dl Creatinine 5.64 H* D (0.6-1.4) mg/dl BUN/Creatinine Ratio 5.7 L (10-20) Glucose 370 H* (70-99(Fasting)) mg/dl POC Glucose 373 H* (70-99) mg/dl Alkaline Phosphatase 127 H (34-104) U/L 03/01/22 Range/Units 05:43 RBC (4.63-6.08) M/uL Hgb (14.0-18.0) g/dl Hct (40.1-51.0) % Dyer # (Auto) (0.24-0.82) K/uL Immature Gran # (Auto) (0.00-0.02) K/uL VBG pH 7.57 H (7.36-7.41) VBG pCO2 23 L (38-50) mmHg Sodium (136-145) mmol/L Chloride (98-107) mmol/L Carbon Dioxide (21-32) mmol/L Anion Gap (3-11) BUN (6-23) mg/dl Creatinine (0.6-1.4) mg/dl BUN/Creatinine Ratio (10-20) Glucose (70-99(Fasting)) mg/dl POC Glucose (70-99) mg/dl Alkaline Phosphatase (34-104) U/L Diagnostic Findings none on admission. Medications Administered Home Medications melatonin 3 mg tablet 3 mg PO HS 09/05/20 [History Confirmed 03/01/22] acetaminophen 325 mg capsule 650 mg PO Q4H PRN Pain (Scale Score 1-3) 09/28/20 [History Confirmed 03/01/22] carvedilol 25 mg tablet 50 mg PO BID 10/01/20 [History Confirmed 03/01/22] vitamin B complex-vitamin C-folic acid 0.8 mg tablet (Renal Vitamin) 1 tab PO QAM 03/13/21 [History Confirmed 03/01/22] ondansetron HCl 4 mg tablet 8 mg PO Q4 PRN nausea or vomiting 03/19/21 [History Confirmed 03/01/22] lorazepam 0.5 mg tablet 0.5 mg PO Q6H PRN Anxiety #60 tabs 03/27/21 [Rx Confirmed 03/01/22] prochlorperazine maleate 5 mg tablet (Compazine) 5 mg PO BID PRN Nausea 06/03/21 [History Confirmed 03/01/22] losartan 100 mg tablet 100 mg PO QAM #90 tabs 06/04/21 [Rx Confirmed 03/01/22] insulin aspart U-100 100 unit/mL (3 mL) subcutaneous pen (Novolog Flexpen U-100 Insulin aspart) 5 unit (0.05 mL) subcut TIDM PRN sliding scale #15 mL 10/24/21 [Rx Confirmed 03/01/22] cholecalciferol (vitamin D3) 50 mcg (2,000 unit) capsule (Vitamin D3) 50 mcg PO QAM 10/25/21 [History Confirmed 03/01/22] pen needle, diabetic 32 gauge x 5/32" (BD Ultra-Fine Annalise Pen Needle) #500 ea 12/17/21 [Rx Confirmed 02/26/22] mirtazapine 7.5 mg tablet 7.5 mg PO HS 12/29/21 [History Confirmed 03/01/22] sertraline 100 mg tablet 100 mg PO QAM 12/29/21 [History Confirmed 03/01/22] sertraline 25 mg tablet 25 mg PO QAM 12/29/21 [History Confirmed 03/01/22] sucroferric oxyhydroxide 500 mg chewable tablet (Velphoro) 1,000 mg PO WM 12/29/21 [History Confirmed 03/01/22] insulin glargine 100 unit/mL (3 mL) subcutaneous pen (Basaglar KwikPen U-100 Insulin) 16 unit (0.16 mL) subcut QAM #15 mL 01/23/22 [Rx Confirmed 03/01/22] atorvastatin 10 mg tablet 10 mg PO QAM #90 tabs 02/03/22 [Rx Confirmed 03/01/22] pantoprazole 40 mg tablet,delayed release 40 mg PO BID #60 tabs 02/03/22 [Rx Confirmed 03/01/22] blood sugar diagnostic (Contour Next Test Strips) #100 ea 02/26/22 [Rx Confirmed 02/26/22] amlodipine 10 mg tablet 10 mg PO DAILY 03/01/22 [History Confirmed 03/01/22] hydralazine 50 mg tablet 50 mg PO BID 03/01/22 [History Confirmed 03/01/22] Active Medications Insulin Human Regular 250 (units/ Sodium Chloride) 250 mls @ 6 mls/hr IV .Q24H JACKI; Protocol Stop: 03/31/22 06:44 Potassium Chloride (K Dom / Wtr) 10 meq in 100 mls @ 100 mls/hr IV Q1H JACKI; Protocol Stop: 03/01/22 09:44 ECG Additional Comments: Sinus rhythm with 1st degree A-V block Possible Left atrial enlargement Left ventricular hypertrophy with repolarization abnormality Nonspecific ST abnormality Abnormal ECG When compared with ECG of 27-FEB-2022 17:44, Questionable change in QRS axis T wave inversion now evident in Inferior leads Nonspecific T wave abnormality now evident in Lateral leads Code Status & VTE Plan Code Status CODE: FULL VTE: SCDS Supervising Physician Co-Signing Physician Notes CREDIT ADMINISTRATION OFFICER Supervision note: I have personally seen and examined the patient and discussed and verified the julien points of the history and physical along with the plan with RADHIKA Crooks with the following exceptions and/or additions: This patient is a 51-year-old male with history of ESRD on HD, HTN, DM type I with severe gastroparesis, multiple recurrent admissions for DKA and intractable nausea/vomiting, who was just discharged from my service last evening to home in excellent condition. He presents again early this morning with hyperglycemia, recurrent DKA, and recurrent intractable nausea/vomiting. History outlined as above. Denies any abdominal pains. Is having some loose stools. History and ROS reviewed as above Vitals reviewed Gen: AAOx3, actively vomiting, appears miserable HEENT: Anicteric sclerae, EOMI CV: RRR no mgr nl S1S2 Pulm: CTAB no wcr Abd: +BS soft NT ND no masses or hernias Ext: No edema Skin: No rashes, warm/dry Neuro: Full strength throughout Labs reviewed 51-year-old male here with intractable nausea/vomiting secondary to diabetic gastroparesis, and recurrent DKA secondary to insufficient insulin coverage at home Treating with gentle IV fluids, insulin drip transition to basal bolus once gap closes, replace electrolytes as needed with caution given ESRD With hypertensive urgency-give IV hydralazine and IV labetalol as needed until able to take p.o. antihypertensives Consult to nephrology appreciated Add on IV Reglan which works well for his nausea/vomiting PG Care Time/CCT Total # of Minutes Spent Total Time Spent with Patient: Total time spent is greater than 50% in coordination of care (as documented) at patient's floor/unit and/or counseling patient: Coding Level of Care Code 23226 Initial Inpt Care Lvl 3 Diagnoses DKA (diabetic ketoacidosis) E11.10 Diabetic gastroparesis E11.43; K31.84 Hypertension I10 Hypertension type: unspecified GERD (gastroesophageal reflux disease) K21.9 Anxiety F41.9 ESRD (end stage renal disease) N18.6 Nonischemic cardiomyopathy I42.8 (1) Hypertension Hypertension type: unspecified Qualified Code(s): I10 - Essential (primary) hypertension
[2022-03-01] MEDS: POTASSIUM CHLORIDE / WTR 10 MEQ/100 ML PLCT IV SCH ×2 (08:06→09:14)
[2022-03-01] MEDS ORDERED: hydrALAZINE HCL 20 MG/ML VIAL IV STA ×2 (09:30→09:54)
[2022-03-01] MEDS ORDERED: LABETALOL HCL IV 5 MG/ML 20ML IV STA (09:32)
[2022-03-01] MEDS ORDERED: LORazepam 0.5 MG TAB PO PRN (09:54)
[2022-03-01] MEDS ORDERED: NORMOSOL-R 1,000 ML IV SCH (09:54)
[2022-03-01] MEDS ORDERED: PANTOprazole 40 MG TAB PO SCH (09:54)
[2022-03-01] MEDS ORDERED: PROCHLORPERAZINE MALEATE 5 MG TAB PO PRN (09:54)
[2022-03-01] MEDS ORDERED: PHARMACY GLYCEMIC MGMT CONSULT PRN (09:54)
[2022-03-01] MEDS ORDERED: LORazepam 0.5 MG in SYRINGE 0.25 ML IV STA (11:48)
[2022-03-01 11:51] LABS: BUN Creatinine Ratio 6.1 (10-20); Calcium 9.2 mg/dl (8.5-10.1); Creatinine Clr Calc Pharmacy 13.1 ml/min; Est GFR (African American) 11.8 ml/min; Est GFR (Non-African American) 10.2 ml/min; Magnesium 2.2 mg/dl (1.7-2.4); Potassium 3.5 mmol/L (3.5-5.1)
[2022-03-01 11:52] LABS: Phosphorus 1.5 mg/dl (2.5-4.9)
[2022-03-01] MEDS ORDERED: LANTUS PER UNIT CHARGE SQ SCH ×2 (12:15→21:00)
[2022-03-01] MEDS: INSULIN ASPART PER UNIT SC SCH ×3 (12:23→21:15)
[2022-03-01] MEDS ORDERED: ACETAMINOPHEN 325 MG TAB PO PRN (12:37)
[2022-03-01] MEDS ORDERED: ONDANSETRON 8MG OD TAB PO PRN (12:42)
[2022-03-01] MEDS: amLODIPine BESYLATE 5 MG TAB PO SCH (12:52)
[2022-03-01] MEDS: ATORVASTATIN 10 MG TAB PO SCH (12:52)
[2022-03-01] MEDS: carvediloL 25 MG TAB PO SCH ×2 (12:53→21:00)
[2022-03-01] MEDS: SERTRALINE HCL 100 MG TABLET PO SCH (12:53)
[2022-03-01] MEDS: SERTRALINE HCL 50 MG TABLET PO SCH (12:53)
[2022-03-01] MEDS: CHOLECALCIFEROL 1,000 UNITS 25 MCG TAB PO SCH (12:53)
[2022-03-01] MEDS: hydrALAZINE TAB 50 MG TAB PO SCH ×2 (12:53→21:00)
[2022-03-01] MEDS: LOSARTAN POTASSIUM 50 MG TAB PO SCH (12:53)
[2022-03-01] MEDS ORDERED: PENDING D5 1/2NS+20mEq KCL IVF SCH (13:00)
[2022-03-01] MEDS ORDERED: PANTOprazole 40 MG in SYRINGE 0 ML IV ONE (13:02)
[2022-03-01] MEDS ORDERED: Nursing to Pharmacy Communication SCH (13:15)
[2022-03-01] MEDS ORDERED: D5W AND 1/2NSS + 20MEQ KCL 20 MEQ/1,000 ML BAG IV SCH (13:45)
[2022-03-01] MEDS ORDERED: hydrALAZINE HCL 20 MG/ML VIAL IV PRN (14:25)
[2022-03-01 14:42] LABS: BUN Creatinine Ratio 6.2 (10-20); Calcium 8.6 mg/dl (8.5-10.1); Creatinine Clr Calc Pharmacy 12.9 ml/min; Est GFR (African American) 11.3 ml/min; Est GFR (Non-African American) 9.8 ml/min; Magnesium 2.2 mg/dl (1.7-2.4); Phosphorus 2.8 mg/dl (2.5-4.9); Potassium 3.5 mmol/L (3.5-5.1)
[2022-03-01] MEDS ORDERED: NORMOSOL-R 250 ML IV ONE (14:52)
[2022-03-01] MEDS: NORMOSOL-R 1,000 ML IV SCH (15:15)
[2022-03-01] MEDS ORDERED: LABETALOL HCL IV 5 MG/ML 20ML IV PRN (17:30)
[2022-03-01] MEDS ORDERED: METOCLOPRAMIDE HCL INJ 5 MG/ML 2 ML VIAL IV PRN (17:31)
[2022-03-01] MEDS ORDERED: PROCHLORPERAZINE 10 MG in SYRINGE 8 ML IV PRN (18:00)
[2022-03-01 20:15] LABS: BUN Creatinine Ratio 6.4 (10-20); Calcium 8.5 mg/dl (8.5-10.1); Creatinine Clr Calc Pharmacy 12.2 ml/min; Est GFR (African American) 10.6 ml/min; Est GFR (Non-African American) 9.1 ml/min; Magnesium 2.2 mg/dl (1.7-2.4); Phosphorus 4.1 mg/dl (2.5-4.9); Potassium 3.4 mmol/L (3.5-5.1)
[2022-03-01] MEDS: MIRTAZAPINE TAB 15 MG TAB PO SCH (21:00)
[2022-03-01] MEDS: MELATONIN 3 MG TAB PO SCH (21:00)
[2022-03-01] MEDS: PANTOprazole 40 MG in SYRINGE 0 ML IV SCH (21:00)
[2022-03-01] MEDS: HEPARIN SOD 5,000 UNIT/0.5 ML VIAL SQ SCH (21:01)
--- NOTE | 2022-03-01 22:44 | Electrocardiogram Report ---
Test Reason : Blood Pressure : / mmHG Vent. Rate : 074 BPM Atrial Rate : 074 BPM P-R Int : 226 ms QRS Dur : 106 ms QT Int : 468 ms P-R-T Axes : 052 001 241 degrees QTc Int : 519 ms Poor data quality, interpretation may be adversely affected Sinus rhythm with 1st degree A-V block Possible Left atrial enlargement Left ventricular hypertrophy with repolarization abnormality Nonspecific ST abnormality Prolonged QT Abnormal ECG When compared with ECG of 27-FEB-2022 17:44, Questionable change in QRS axis T wave inversion now evident in Inferior leads Nonspecific T wave abnormality now evident in Lateral leads Confirmed by Travon Ayala ([id number]) on 03/01/2022 10:43:58 PM Referred By: REFERRED SELF Confirmed By:Travon Ayala
[2022-03-02] MEDS: INSULIN ASPART PER UNIT SC SCH ×6 (00:07→20:30)
[2022-03-02] MEDS: NORMOSOL-R 1,000 ML IV SCH (00:09)
[2022-03-02 06:39] LABS: Basophils # (auto) 0.03 K/uL (0-0.2); Basophils % (auto) 0.2 %; Eosinophils # (auto) 0.03 K/uL (0-0.50); Eosinophils % (auto) 0.2 %; Hemoglobin 9.8 g/dl (14.0-18.0); Immature Granulocytes # (auto) 0.08 K/uL (0.00-0.02); Immature Granulocytes % (auto) 0.7 %; Lymphocytes # (auto) 1.66 K/uL (1.2-3.4); Lymphocytes % (auto) 13.8 %; Mean Corpuscular Hemoglobin 32.7 pg (25.0-34.0); Mean Corpuscular Hgb Conc 33.8 g/dL (32.0-36.0); Mean Corpuscular Volume 96.7 fL (80.0-100.0); Mean Platelet Volume 9.4 fL (9.4-12.4); Monocytes # (auto) 1.38 K/uL (0.24-0.82); Monocytes % (auto) 11.5 %; Neutrophils # (auto) 8.85 K/uL (1.4-6.5); Neutrophils % (auto) 73.6 %; Platelet Count 273 K/uL (130-400); RDW Coefficient of Variation 12.4 % (11.5-14.5); RDW Standard Deviation 43.7 fL (36.4-46.3); White Blood Count 12.03 K/ul (4.8-10.8)
[2022-03-02 07:29] LABS: BUN Creatinine Ratio 5.6 (10-20); Calcium 7.6 mg/dl (8.5-10.1); Creatinine Clr Calc Pharmacy 10.1 ml/min; Est GFR (African American) 8.8 ml/min; Est GFR (Non-African American) 7.6 ml/min; Magnesium 2.3 mg/dl (1.7-2.4); Potassium 3.2 mmol/L (3.5-5.1)
[2022-03-02] MEDS ORDERED: LANTUS PER UNIT CHARGE SQ SCH (09:00)
[2022-03-02] MEDS: SERTRALINE HCL 100 MG TABLET PO SCH (09:32)
[2022-03-02] MEDS: SERTRALINE HCL 50 MG TABLET PO SCH (09:32)
[2022-03-02] MEDS: carvediloL 25 MG TAB PO SCH ×2 (09:33→20:29)
[2022-03-02] MEDS: hydrALAZINE TAB 50 MG TAB PO SCH ×2 (09:33→20:30)
[2022-03-02] MEDS: CHOLECALCIFEROL 1,000 UNITS 25 MCG TAB PO SCH (09:33)
[2022-03-02] MEDS: LOSARTAN POTASSIUM 50 MG TAB PO SCH (09:34)
[2022-03-02] MEDS: amLODIPine BESYLATE 5 MG TAB PO SCH (09:34)
[2022-03-02] MEDS: ATORVASTATIN 10 MG TAB PO SCH (09:34)
[2022-03-02] MEDS: PANTOprazole 40 MG in SYRINGE 0 ML IV SCH ×2 (09:35→20:29)
[2022-03-02] MEDS: HEPARIN SOD 5,000 UNIT/0.5 ML VIAL SQ SCH ×2 (09:35→20:29)
--- NOTE | 2022-03-02 11:52 | Nephrology Consultation ---
Date of Consultation March 02, 2022 Assessment & Plan (1) ESRD on hemodialysis: Patient with ESRD on dialysis Thursday. He had dialysis on Thursday. Electrolytes are stable and no indication for dialysis today. Potassium is on the lower side. -We will dialyze him tomorrow for 3 hours to get UF of 1.5 L. (2) DKA (diabetic ketoacidosis): Patient with recurrent DKA. Blood sugars are improving with insulin. No need for aggressive IV fluids in setting of ESRD. History of Present Illness Reason for Consultation: ESRD Requesting Physician: Mireille Ponce MD Attending Physician: Mireille Ponce MD History of Present Illness 51 YOM with medical history of DM I, ESRD on dialysis, gastroparesis, pleural effusions (resolved), HTN, NICM, (ef 40-45%) pulmonary embolism (previously on warfarin dc'd 05/28). Patient is readmission following discharge on 02/28 for DKA. Patient had dialysis on 02/28/2022 and discharged after dialysis. Patient noted to have severe hyperglycemia and denied and return to the emergency room. He also had nausea and vomiting. Blood sugars improved with insulin. He feels better today now. No shortness of breath. No nausea vomiting or diarrhea. He has a left upper arm AV fistula which has been working well. Potassium is 3.2 today. Labs and imaging were reviewed. Allergies Allergy/AdvReac Type Severity Reaction Status Date / Time shellfish derived Allergy Severe anaphylaxis Verified 03/01/22 07:02 codeine Allergy Intermediate Hives Verified 03/01/22 07:02 promethazine Allergy Intermediate itchy/hives Verified 03/01/22 07:02 Home Medications Medication Instructions Recorded Confirmed Type melatonin 3 mg tablet 3 mg PO HS 09/05/20 03/01/22 History acetaminophen 325 mg capsule 650 mg PO Q4H PRN Pain (Scale 09/28/20 03/01/22 History Score 1-3) carvedilol 25 mg tablet 50 mg PO BID 10/01/20 03/01/22 History vitamin B complex-vitamin C-folic 1 tab PO QAM 03/13/21 03/01/22 History acid 0.8 mg tablet (Renal Vitamin) ondansetron HCl 4 mg tablet 8 mg PO Q4 PRN nausea or vomiting 03/19/21 03/01/22 History lorazepam 0.5 mg tablet 0.5 mg PO Q6H PRN Anxiety #60 tabs 03/27/21 03/01/22 Rx prochlorperazine maleate 5 mg 5 mg PO BID PRN Nausea 06/03/21 03/01/22 History tablet (Compazine) losartan 100 mg tablet 100 mg PO QAM #90 tabs 06/04/21 03/01/22 Rx insulin aspart U-100 100 unit/mL 5 unit (0.05 mL) subcut TIDM PRN 10/24/21 0 03/01/22 Rx (3 mL) subcutaneous pen (Novolog sliding scale #15 mL Flexpen U-100 Insulin aspart) cholecalciferol (vitamin D3) 50 50 mcg PO QAM 10/25/21 03/01/22 History mcg (2,000 unit) capsule (Vitamin D3) pen needle, diabetic 32 gauge x #500 ea 12/17/21 02/26/22 Rx " (BD Ultra-Fine Annalise Pen Needle) mirtazapine 7.5 mg tablet 7.5 mg PO HS 12/29/21 03/01/22 History sertraline 100 mg tablet 100 mg PO QAM 12/29/21 03/01/22 History sertraline 25 mg tablet 25 mg PO QAM 12/29/21 03/01/22 History sucroferric oxyhydroxide 500 mg 1,000 mg PO WM 12/29/21 03/01/22 History chewable tablet (Velphoro) insulin glargine 100 unit/mL (3 16 unit (0.16 mL) subcut QAM #15 mL 01/23/22 03/01/22 Rx mL) subcutaneous pen (Basaglar KwikPen U-100 Insulin) atorvastatin 10 mg tablet 10 mg PO QAM #90 tabs 02/03/22 03/01/22 Rx pantoprazole 40 mg tablet,delayed 40 mg PO BID #60 tabs 02/03/22 03/01/22 Rx release blood sugar diagnostic (Contour #100 ea 02/26/22 02/26/22 Rx Next Test Strips) amlodipine 10 mg tablet 10 mg PO DAILY 03/01/22 03/01/22 History hydralazine 50 mg tablet 50 mg PO BID 03/01/22 03/01/22 History Patient History Medical History Anemia of chronic disease Anxiety AV fistula left upper arm CAD (coronary artery disease) mild, non-obstructive CAD per 10/2018 cardiac cath> [facility] Cardiac murmur follows with Dr. Powell Cellulitis of chest wall Chronic pleural effusion PleurX catheter placed 01/24/21--removed 07/2021 Cyclical vomiting syndrome Depression Diabetes Diabetic retinopathy Dialysis patient Esophagitis ESRD (end stage renal disease) M,W,F (Follows with Dr. Lor Guadalupe; [facility]) GERD (gastroesophageal reflux disease) History of COVID-19 07/30, not hospitalized, congestion and headache-resolved History of pulmonary embolism 11/2020; unk etiology; was on warfarin (taken off 05/2021) Hypertension Lumbar radiculopathy Palliative care encounter Peripheral neuropathy Plantar wart, right foot Pulmonary embolism Recurrent pleural effusion on left Retinopathy due to secondary diabetes Surgical History H/O shoulder surgery RIGHT History of appendectomy History of cardiac cath 10/2018= no stents, no obstructive disease (at [facility]) History of cataract surgery History of esophagogastroduodenoscopy (EGD) (~03/08/20) History of hip surgery left HIP ARTHROSCOPY History of lithotripsy History of open reduction and internal fixation (ORIF) procedure right hip Nausea and vomiting after administration of anesthetic agent S/P arteriovenous (AV) fistula creation Family History Grandfather Myocardial infarction Grandfather (Maternal) Family history of diabetes mellitus Uncle Myocardial infarction Father Hypertension Mother Kidney stone Other No family history of adverse response to anesthesia Denies family history of Colon cancer Ovarian cancer Prostate cancer Breast cancer Social History Smoking Status: Never smoker Tobacco Type: Cigarettes Second Hand Exposure: No; Hx Alcohol Use: No Hx Substance Use: No Preferred Language: Austrian Communication Ability: Effective Visual Impairment: No Limitations Hearing Ability: Normal Mechanical Service Technician Required: No Beliefs That Will Affect Care: None marital status: Current Living Situation: Parent Current Living Situation Comment: lives with parents. current occupational status: disabled How many Children do You have: 2 Other Information That Helps Us Care for You: No Feels Safe at Home: Yes Safety Concerns: Feels Safe At This Time Childhood Exposure to Second-Hand Smoke: Yes Dental Care, Regularly: No Physical Activity Frequency: 1-2 Times per Week Seatbelt Use: always Sunscreen Use: No Assistive Devices: Glasses Review of Systems Review of Systems: All other systems were reviewed and negative except as noted in HPI Physical Exam Physical Exam: General exam: Appears comfortable, no acute distress HEENT: Pupils are equal and reactive to light Neck: No JVD, neck is supple trachea is midline Respiratory system: Clear breath sounds bilaterally. Gastrointestinal: Abdomen is soft, non distended, non tender, bowel sounds are present CVS: Regular rate and rhythm. No murmurs, rubs or gallops Musculoskeletal: No joint or muscle tenderness Extremities: Non tender, no edema, peripheral pulses are present Neuro: Oriented, no tremors, no focal neurological deficits Skin: No rashes Results & Data ([facility]) Vital Signs (Past 12 Hours) Vital Signs Temp Pulse Pulse Resp BP Pulse Ox O2 Del Method 03/02/22 11:16 36.6 C 67 16 92/50 L 98 Room Air 03/02/22 08:00 66 03/02/22 07:34 37.0 C 69 16 137/54 L 96 Room Air 03/02/22 03:42 36.7 C 66 17 110/47 L 96 Room Air Laboratory Results 03/02/22 05:45 03/01/22 03/01/22 03/01/22 10:21 14:11 19:05 WBC RBC MCV MCH MCHC RDW Std Deviation RDW Coeff of Kami Plt Count MPV Phosphorus 1.5 L* D 2.8 D 4.1 D 03/02/22 03/02/22 05:45 05:45 WBC 12.03 H RBC 3.00 L MCV 96.7 MCH 32.7 MCHC 33.8 RDW Std Deviation 43.7 RDW Coeff of Kami 12.4 Plt Count 273 MPV 9.4 Phosphorus 5.0 H
[2022-03-02] MEDS ORDERED: POTASSIUM CHLORIDE CRTAB 20 MEQ TABCR PO STA (14:30)
--- NOTE | 2022-03-02 14:32 | Hospitalist Progress Note ---
Date of Service March 02, 2022 Assessment & Plan (1) DKA (diabetic ketoacidosis): Plan: Hyperglycemia with elevated gap, HCO3 19- IVF boluses as needed for volume replacement - insulin infusion until gap decreased and glucose <250 - Normosol for fluids - D5/1/2 ns with KCL once BG <250 - Follow q1 hour BG - glycemic consultation for transition - Labs obtained 4 hours after admission with GAP of 14 BG 170 electrolytes improved. Transition with subq insulin, D5 0.45%NS with 20MEQ KCL started at 90ml/hour. Control Nausea/vomiting at this time. RESOLVED 03/01 in evening wtih complete normalization of gap and electrolytes - Continue glucose control for his type I DM (2) Controlled type 1 diabetes mellitus with diabetic neuropathy, with long-term current use of insulin: Plan: As above DKA/Hyperglycmeia resolved - Continue Basal bolus insulin - CF 35 with ratio of 1:10 - glycemic pharmacy managing- reviewed no change (3) Diabetic gastroparesis: Plan: Acute on chronic - likely exacerbated these last two admissions by elevated blood glucose levels - has done very well following his addition of remeron - continue remeron - antiemetics to include Reglan as needed and Compazine as needed, h2, ppi - replete intravascular volume and glucose control - as above no acute issues today (4) Hypertension: Plan: Acute on chronic - will provide IV agents if unable to tolerate his PO regime- start with IV hydralazine then PRN labetalol - Goal <200 - continue with his Carvedilol, amlodipine, and Cozaar if able - back to tolerating PO medications is slighly hpotensive today so follow- hemodyanmics with volume no change currently (5) GERD (gastroesophageal reflux disease): Plan: Continue PPI and H2 (6) Anxiety: Plan: Continue ativan Continue sertraline - IV Ativan x1 for nausea as well as anxiety (7) ESRD (end stage renal disease): Plan: Dialysis dependant- MWF dialyized 02/28 with improvement in hemodynamics - nephrology consultation appreciated - Follow electrolytes- hypokalemic at 3.2 on 03/02- 20meq KCL PO x1 (8) Nonischemic cardiomyopathy: Plan: HX stable continue BP control and glucose control follow no acute needs (9) Leukocytosis: Plan: Likely stress response following yesterday dehydration and dry heaves/vomitting- follow with recheck today - Anemia 9.8- follow on redraw - addendum to follow if abnormal (10) Anemia: Plan: Microcytic- 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 The patient with rapid improvement yesterday in his glucose and electrolytes. His n/v improved as the day progressed resolving in the afternoon. He is tolerating diet today without any complaints and states he feels great today. We did discuss that he should probably avoid further foods that are soft and doughy with his gastroparesis. He stable from electrolyte standpoint and glucose standpoint. Nephrology is following and plans for dialysis on 03/03/22. His HGB level did decrease today to 9.8- will recheck this with peripheral stick and no evidence of bleeding likely related to ESRD/AOCD. WBC count 12 likely is related to stress from yesterday. Follow OVerall continue supportive care today with dialysis plan on 03/02 Review of Systems Review of Systems: REVIEW OF SYSTEMS: Constitutional: Back to his baseline and feeling better Eyes: No diplopia, no worsening or blurred vision ENT: normal hearing, no trouble swallowing Respiratory: No cough, sputum, dyspnea at rest or on exertion Cardiovascular: No chest pain, tightness or palpitations Abdomen: resolved abd pain, nausea, vomiting, no diarrhea or constipation Musculoskeletal: No joint pain, calf pain, swelling Neurologic: No weakness, numbness/tingling, or balance problems Psychiatric: (+) depression, Skin: No rash or itch Physical Exam Physical Exam: PHYSICAL EXAM: General: awakens easily, alert oriented, fatigued Head: Normocephalic, atraumatic ENT: PERRL, EOMI, no pharyngeal exudate, mucous membranes dry Neuro: AAO x 3, speech clear and appropriate, strength intact bilaterally 5/5, sensation intact and equal all extremities and dermatomes, no pronator drift Chest: equal rise and fall of the chest, no accessory muscle use, no heaves or thrills, Clear to auscultation, on room air, Cardiac: Regular rate and rhythm, telemetry reviewed, skin warm dry, cap refill <3 seconds, peripheral pulses +2 no JVD, no murmur, no edema GI: NABS x 4 quadrants, soft, nontender to palpation, no rebound, guarding or tenderness, no more vomiting or dryheaving and is tolerating diet : makes urine occasionally, none at this time Extremities: Normal inspection, no peripheral edema or erythema, calfs nontender to palpation Skin: no rash or erythema Results & Data Results & Data ([facility]) Vital Signs (Past 12 Hours) Vital Signs Temp Pulse Pulse Resp BP Pulse Ox O2 Del Method 03/02/22 11:16 36.6 C 67 16 92/50 L 98 Room Air 03/02/22 08:00 66 03/02/22 07:34 37.0 C 69 16 137/54 L 96 Room Air 03/02/22 03:42 36.7 C 66 17 110/47 L 96 Room Air Laboratory Results Abnormal lab results 03/01/22 03/01/22 03/01/22 Range/Units 14:11 14:11 16:18 WBC (4.8-10.8) K/ul RBC (4.63-6.08) M/uL Hgb (14.0-18.0) g/dl Hct (40.1-51.0) % Neut # (Auto) (1.4-6.5) K/uL [place] # (Auto) (0.24-0.82) K/uL Immature Gran # (Auto) (0.00-0.02) K/uL VBG pH 7.43 H (7.36-7.41) Sodium 133 L (136-145) mmol/L Potassium (3.5-5.1) mmol/L Chloride 96 L (98-107) mmol/L Carbon Dioxide 20 L (21-32) mmol/L Anion Gap 17 H (3-11) BUN 38 H (6-23) mg/dl Creatinine 6.09 H* (0.6-1.4) mg/dl BUN/Creatinine Ratio 6.2 L (10-20) Glucose 289 H (70-99(Fasting)) mg/dl POC Glucose 277 H (70-99) mg/dl Calcium (8.5-10.1) mg/dl Phosphorus (2.5-4.9) mg/dl 03/01/22 03/01/22 03/01/22 Range/Units 19:05 20:20 23:47 WBC (4.8-10.8) K/ul RBC (4.63-6.08) M/uL Hgb (14.0-18.0) g/dl Hct (40.1-51.0) % Neut # (Auto) (1.4-6.5) K/uL [place] # (Auto) (0.24-0.82) K/uL Immature Gran # (Auto) (0.00-0.02) K/uL VBG pH (7.36-7.41) Sodium 135 L (136-145) mmol/L Potassium 3.4 L (3.5-5.1) mmol/L Chloride 97 L (98-107) mmol/L Carbon Dioxide (21-32) mmol/L Anion Gap 16 H (3-11) BUN 41 H (6-23) mg/dl Creatinine 6.43 H* D (0.6-1.4) mg/dl BUN/Creatinine Ratio 6.4 L (10-20) Glucose 275 H (70-99(Fasting)) mg/dl POC Glucose 227 H 182 H (70-99) mg/dl Calcium (8.5-10.1) mg/dl Phosphorus (2.5-4.9) mg/dl 03/02/22 03/02/22 03/02/22 Range/Units 03:41 05:45 05:45 WBC 12.03 H (4.8-10.8) K/ul RBC 3.00 L (4.63-6.08) M/uL Hgb 9.8 L D (14.0-18.0) g/dl Hct 29.0 L (40.1-51.0) % Neut # (Auto) 8.85 H (1.4-6.5) K/uL [place] # (Auto) 1.38 H (0.24-0.82) K/uL Immature Gran # (Auto) 0.08 H (0.00-0.02) K/uL VBG pH (7.36-7.41) Sodium (136-145) mmol/L Potassium 3.2 L (3.5-5.1) mmol/L Chloride (98-107) mmol/L Carbon Dioxide (21-32) mmol/L Anion Gap (3-11) BUN 42 H (6-23) mg/dl Creatinine 7.49 H* D (0.6-1.4) mg/dl BUN/Creatinine Ratio 5.6 L (10-20) Glucose 118 H (70-99(Fasting)) mg/dl POC Glucose 111 H (70-99) mg/dl Calcium 7.6 L (8.5-10.1) mg/dl Phosphorus 5.0 H (2.5-4.9) mg/dl 03/02/22 03/02/22 Range/Units 08:10 11:53 WBC (4.8-10.8) K/ul RBC (4.63-6.08) M/uL Hgb (14.0-18.0) g/dl Hct (40.1-51.0) % Neut # (Auto) (1.4-6.5) K/uL [place] # (Auto) (0.24-0.82) K/uL Immature Gran # (Auto) (0.00-0.02) K/uL VBG pH (7.36-7.41) Sodium (136-145) mmol/L Potassium (3.5-5.1) mmol/L Chloride (98-107) mmol/L Carbon Dioxide (21-32) mmol/L Anion Gap (3-11) BUN (6-23) mg/dl Creatinine (0.6-1.4) mg/dl BUN/Creatinine Ratio (10-20) Glucose (70-99(Fasting)) mg/dl POC Glucose 164 H 108 H (70-99) mg/dl Calcium (8.5-10.1) mg/dl Phosphorus (2.5-4.9) mg/dl Medications Administered Home Medications melatonin 3 mg tablet 3 mg PO HS 09/05/20 [History Confirmed 03/01/22] acetaminophen 325 mg capsule 650 mg PO Q4H PRN Pain (Scale Score 1-3) 09/28/20 [History Confirmed 03/01/22] carvedilol 25 mg tablet 50 mg PO BID 10/01/20 [History Confirmed 03/01/22] vitamin B complex-vitamin C-folic acid 0.8 mg tablet (Renal Vitamin) 1 tab PO Q AM 03/13/21 [History Confirmed 03/01/22] ondansetron HCl 4 mg tablet 8 mg PO Q4 PRN nausea or vomiting 03/19/21 [History Confirmed 03/01/22] lorazepam 0.5 mg tablet 0.5 mg PO Q6H PRN Anxiety #60 tabs 03/27/21 [Rx Confirmed 03/01/22] prochlorperazine maleate 5 mg tablet (Compazine) 5 mg PO BID PRN Nausea 06/03/21 [History Confirmed 03/01/22] losartan 100 mg tablet 100 mg PO QAM #90 tabs 06/04/21 [Rx Confirmed 03/01/22] insulin aspart U-100 100 unit/mL (3 mL) subcutaneous pen (Novolog Flexpen U-100 Insulin aspart) 5 unit (0.05 mL) subcut TIDM PRN sliding scale #15 mL 10/24/21 [Rx Confirmed 03/01/22] cholecalciferol (vitamin D3) 50 mcg (2,000 unit) capsule (Vitamin D3) 50 mcg PO QAM 10/25/21 [History Confirmed 03/01/22] pen needle, diabetic 32 gauge x 5/32" (BD Ultra-Fine Annalsie Pen Needle) #500 ea 12/17/21 [Rx Confirmed 02/26/22] mirtazapine 7.5 mg tablet 7.5 mg PO HS 12/29/21 [History Confirmed 03/01/22] sertraline 100 mg tablet 100 mg PO QAM 12/29/21 [History Confirmed 03/01/22] sertraline 25 mg tablet 25 mg PO QAM 12/29/21 [History Confirmed 03/01/22] sucroferric oxyhydroxide 500 mg chewable tablet (Velphoro) 1,000 mg PO WM 12/29/21 [History Confirmed 03/01/22] insulin glargine 100 unit/mL (3 mL) subcutaneous pen (Basaglar KwikPen U-100 Insulin) 16 unit (0.16 mL) subcut QAM #15 mL 01/23/22 [Rx Confirmed 03/01/22] atorvastatin 10 mg tablet 10 mg PO QAM #90 tabs 02/03/22 [Rx Confirmed 03/01/22] pantoprazole 40 mg tablet,delayed release 40 mg PO BID #60 tabs 02/03/22 [Rx Confirmed 03/01/22] blood sugar diagnostic (Contour Next Test Strips) #100 ea 02/26/22 [Rx Confirmed 02/26/22] amlodipine 10 mg tablet 10 mg PO DAILY 03/01/22 [History Confirmed 03/01/22] hydralazine 50 mg tablet 50 mg PO BID 03/01/22 [History Confirmed 03/01/22] Active Medications Acetaminophen (Acetaminophen 325 Mg Tab) 650 mg PO Q4H PRN PRN Reason: Pain (Scale Score 1-3) Stop: 03/31/22 12:36 Amlodipine Besylate (Amlodipine Besylate 5 Mg Tab) 10 mg PO DAILY JACKI Stop: 03/31/22 09:53 Last Admin: 03/02/22 09:34 Dose: 10 mg Atorvastatin Calcium (Atorvastatin 10 Mg Tab) 10 mg PO QAM JACKI Stop: 03/31/22 09:53 Last Admin: 03/02/22 09:34 Dose: 10 mg Carvedilol (Carvedilol 25 Mg Tab) 50 mg PO BID JACKI Stop: 03/31/22 09:53 Last Admin: 03/02/22 09:33 Dose: 50 mg Heparin Sodium (Porcine) (Heparin Sod 5,000 Unit/0.5 Ml Vial) 5,000 units SQ Q12 JACKI Stop: 03/31/22 20:59 Last Admin: 03/02/22 09:35 Dose: Not Given Heparin Sodium (Porcine) (Heparin Sod (Porcine) 1000 Unit/Ml) 2,000 units IV ONE ONE Stop: 03/03/22 07:01 Hydralazine HCl (Hydralazine Tab 50 Mg Tab) 50 mg PO BID JACKI Stop: 03/31/22 09:53 Last Admin: 03/02/22 09:33 Dose: 50 mg Pantoprazole Sodium 40 mg/ (Syringe) 10 mls @ 5 mls/min IV BID JACKI Stop: 03/31/22 20:59 Last Admin: 03/02/22 09:35 Dose: 5 mls/min Prochlorperazine 10 mg/ (Syringe) 10 mls @ 5 mls/min IV Q6H PRN PRN Reason: Nausea And Vomiting,second Stop: 10/24/22 17:59 Insulin Aspart (Insulin Aspart Per Unit) 0 units SC ACHS [facility] Stop: 03/31/22 11:29 Last Admin: 03/02/22 14:22 Dose: 4 units Insulin Glargine (Lantus Per Unit Charge) 0 units SQ HS [facility]; Protocol Stop: 03/31/22 20:59 Last Admin: 03/01/22 21:14 Dose: 5 units Insulin Glargine (Lantus Per Unit Charge) 8 units SQ QAM [facility] Stop: 04/01/22 08:59 Last Admin: 03/02/22 08:37 Dose: 8 units Labetalol HCl (Labetalol Hcl Iv 5 Mg/Ml 20ml) 10 mg IV Q6H PRN PRN Reason: SBP>190 Stop: 03/31/22 17:29 Lorazepam (Lorazepam 0.5 Mg Tab) 0.5 mg PO Q6H PRN PRN Reason: Anxiety Stop: 03/31/22 09:53 Losartan Potassium (Losartan Potassium 50 Mg Tab) 100 mg PO [facility] Stop: 03/31/22 09:53 Last Admin: 03/02/22 09:34 Dose: 100 mg Melatonin (Melatonin 3 Mg Tab) 3 mg PO [facility] Stop: 03/31/22 20:59 Last Admin: 03/01/22 21:00 Dose: 3 mg Metoclopramide HCl (Metoclopramide Hcl Inj 5 Mg/Ml 2 Ml Vial) 10 mg IV Q8H PRN PRN Reason: nausea Stop: 03/31/22 17:44 Last Admin: 03/01/22 18:10 Dose: 10 mg Mirtazapine (Mirtazapine Tab 15 Mg Tab) 7.5 mg PO [facility] Stop: 03/31/22 20:59 Last Admin: 03/01/22 21:00 Dose: 7.5 mg Miscellaneous (*Sucroferric Oxyhydroxide*Order Awaiting Action) 1 each N/A QS [facility] Stop: 03/31/22 15:59 Last Admin: 03/02/22 08:40 Dose: Not Given Miscellaneous Information (Pharmacy Glycemic Mgmt Consult) 1 each N/A UD PRN PRN Reason: Consult Stop: 03/31/22 09:53 Sertraline HCl (Sertraline Hcl 50 Mg Tablet) [facility] Stop: 03/31/22 09:53 Last Admin: 03/02/22 09:32 Dose: 25 mg Sertraline HCl (Sertraline Hcl 100 Mg Tablet) 100 mg PO QAM [facility] Stop: 03/31/22 09:53 Last Admin: 03/02/22 09:32 Dose: 100 mg Vitamin D (Cholecalciferol 1,000 Units 25 Mcg Tab) 2,000 units PO QAM JACKI Stop: 03/31/22 10:14 Last Admin: 03/02/22 09:33 Dose: 2,000 units PG Care Time/CCT Total # of Minutes Spent Total Time Spent with Patient: Total time spent is greater than 50% in coordination of care (as documented) at patient's floor/unit and/or counseling patient: Coding Level of Care Code 82112 Subseq Hosp Care Lvl 3 Diagnoses DKA (diabetic ketoacidosis) E11.10 Controlled type 1 diabetes mellitus with diabetic neuropathy, with long-term current use of insulin E10.40 Diabetic gastroparesis E11.43; K31.84 Hypertension I10 Hypertension type: unspecified GERD (gastroesophageal reflux disease) K21.9 Anxiety F41.9 ESRD (end stage renal disease) N18.6 Nonischemic cardiomyopathy I42.8 Leukocytosis D72.829 Anemia D64.9 (1) Hypertension Hypertension type: unspecified Qualified Code(s): I10 - Essential (primary) hypertension
[2022-03-02 15:13] LABS: Basophils # (auto) 0.04 K/uL (0-0.2); Basophils % (auto) 0.4 %; Eosinophils # (auto) 0.06 K/uL (0-0.50); Eosinophils % (auto) 0.6 %; Hematocrit (blood only) 30.4 % (40.1-51.0); Hemoglobin 10.4 g/dl (14.0-18.0); Immature Granulocytes # (auto) 0.06 K/uL (0.00-0.02); Immature Granulocytes % (auto) 0.6 %; Lymphocytes # (auto) 1.83 K/uL (1.2-3.4); Lymphocytes % (auto) 18.5 %; Mean Corpuscular Hemoglobin 32.9 pg (25.0-34.0); Mean Corpuscular Hgb Conc 34.2 g/dL (32.0-36.0); Mean Corpuscular Volume 96.2 fL (80.0-100.0); Mean Platelet Volume 9.4 fL (9.4-12.4); Monocytes # (auto) 0.97 K/uL (0.24-0.82); Monocytes % (auto) 9.8 %; Neutrophils # (auto) 6.94 K/uL (1.4-6.5); Neutrophils % (auto) 70.1 %; Platelet Count 259 K/uL (130-400); RDW Coefficient of Variation 12.5 % (11.5-14.5); RDW Standard Deviation 43.2 fL (36.4-46.3); Red Blood Count 3.16 M/uL (4.63-6.08)
[2022-03-02] MEDS ORDERED: GLUCAGON FOR INJ 1 MG VIAL IM PRN (16:45)
[2022-03-02] MEDS ORDERED: GLUCOSE 40% GEL 15 GM TUBE PO PRN (16:45)
[2022-03-02] MEDS ORDERED: GLUCOSE 10 TAB/TUBE PO PRN (16:45)
[2022-03-02] MEDS ORDERED: CARBOHYDRATES FOR HYPOGLYCEMIA PO PRN (16:45)
[2022-03-02] MEDS ORDERED: DEXTROSE 50% 50 ML SYRINGE IV PRN (16:45)
[2022-03-02] MEDS: MELATONIN 3 MG TAB PO SCH (20:29)
[2022-03-02] MEDS: MIRTAZAPINE TAB 15 MG TAB PO SCH (20:38)
--- NOTE | 2022-03-02 21:08 | Electrocardiogram Report ---
Test Reason : Blood Pressure : / mmHG Vent. Rate : 067 BPM Atrial Rate : 067 BPM P-R Int : 220 ms QRS Dur : 094 ms QT Int : 512 ms P-R-T Axes : 053 012 061 degrees QTc Int : 541 ms Sinus rhythm with 1st degree A-V block Possible Left atrial enlargement Prolonged QT Abnormal ECG When compared with ECG of 01-MAR-2022 05:37, T wave inversion no longer evident in Inferior leads Nonspecific T wave abnormality, improved in Lateral leads Confirmed by Alex Gracia ([id number]) on 03/02/2022 9:08:09 PM Referred By: REFERRED SELF Confirmed By:Alex Gracia
[2022-03-03 06:12] LABS: Basophils # (auto) 0.04 K/uL (0-0.2); Basophils % (auto) 0.4 %; Eosinophils # (auto) 0.09 K/uL (0-0.50); Hematocrit (blood only) 32.4 % (40.1-51.0); Hemoglobin 10.8 g/dl (14.0-18.0); Immature Granulocytes # (auto) 0.05 K/uL (0.00-0.02); Immature Granulocytes % (auto) 0.6 %; Lymphocytes # (auto) 2.42 K/uL (1.2-3.4); Lymphocytes % (auto) 26.6 %; Mean Corpuscular Hgb Conc 33.3 g/dL (32.0-36.0); Mean Corpuscular Volume 99.1 fL (80.0-100.0); Mean Platelet Volume 9.7 fL (9.4-12.4); Monocytes # (auto) 0.94 K/uL (0.24-0.82); Monocytes % (auto) 10.3 %; Neutrophils # (auto) 5.55 K/uL (1.4-6.5); Neutrophils % (auto) 61.1 %; Platelet Count 267 K/uL (130-400); RDW Coefficient of Variation 12.4 % (11.5-14.5); RDW Standard Deviation 45.2 fL (36.4-46.3); Red Blood Count 3.27 M/uL (4.63-6.08); White Blood Count 9.09 K/ul (4.8-10.8)
[2022-03-03 06:34] LABS: Magnesium 2.4 mg/dl (1.7-2.4); Phosphorus 5.6 mg/dl (2.5-4.9)
[2022-03-03] MEDS ORDERED: HEPARIN SOD (PORCINE) 1000 UNIT/ML IV ONE (07:00)
[2022-03-03] MEDS: CHOLECALCIFEROL 1,000 UNITS 25 MCG TAB PO SCH (08:21)
[2022-03-03] MEDS: PANTOprazole 40 MG in SYRINGE 0 ML IV SCH ×2 (08:22→21:25)
[2022-03-03] MEDS: ATORVASTATIN 10 MG TAB PO SCH (08:22)
[2022-03-03] MEDS: INSULIN ASPART PER UNIT SC SCH ×4 (08:23→21:26)
[2022-03-03] MEDS: LANTUS PER UNIT CHARGE SQ SCH (08:23)
[2022-03-03] MEDS: HEPARIN SOD 5,000 UNIT/0.5 ML VIAL SQ SCH ×2 (08:31→21:26)
--- NOTE | 2022-03-03 08:47 | Pharmacy Report ---
Pharmacy Glycemic Short Note 2 - Date of Service March 03, 2022 - Glycemic Short BSG Results (Last 24 hours): 03/02/22 03/02/22 03/02/22 11:53 16:31 16:32 POC Glucose 108 H 44 L* 48 L* 03/02/22 03/02/22 03/02/22 16:44 16:59 20:15 POC Glucose 48 L* 199 H 137 H 03/03/22 07:20 POC Glucose 206 H OUTPATIENT ANTIDIABETIC REGIMEN: * Lantus 16 units Q AM * Novolog CF 30 and CR 10 * A1c = 9.8% however pt has ESRD therefore interpret with caution due to inaccuracies ASSESSMENT: * Type 1 diabetic admitted for DKA * Patient is known to glycemic control service from prior admissions * Patient initially managed with IV insulin infusion then transitioned to SQ basal/bolus regimen on 03/01 * Will utilize data from prior admissions to help guide insulin dosing this admission. He most commonly requires a basal insulin dose of ~12 units per day but needs do fluctuate based upon PO intake. Given his low post-lunch BSG yesterday, will utilize lower prandial insulin doses today. PLAN FOR INPATIENT GLYCEMIC CONTROL: * Basal insulin * Lantus 12 units SQ Q AM * Bolus insulin * NovoLog per scale ACHS or Q6hrs while NPO * Goal Range: Low 110 mg/dL - High 160 mg/dL * Correction Factor: 35 mg/dL/unit * Nutritional / Prandial insulin per carb ratio of 1 unit per 15 grams CHO consumed
--- NOTE | 2022-03-03 09:39 | Nephrology Progress Note ---
Date of Service March 03, 2022 Assessment & Plan (1) ESRD on hemodialysis: Plan: ESRD on dialysis Thursday. He had dialysis on Thursday. Electrolytes are stable and no indication for dialysis today. Potassium is on the lower side. -We will dialyze him today for 3.5 hours to get UF of 1.5 L. (2) DKA (diabetic ketoacidosis): Plan: Patient with recurrent DKA. Blood sugars are improving with insulin. No need for aggressive IV fluids in setting of ESRD. Admission and Anticipated Discharge Date Admission Date: March 01, 2022 Subjective N today and minimal po. no pain, no sob Review of Systems Review of Systems: All systems reviewed & are unremarkable except as noted in Subjective Physical Exam Constitutional: well developed and well nourished Eyes: EOM intact bilaterally ENMT: Ears: no external ear abnormality Nose: no external nose abnormality Mouth: + dry oral mucous membranes Neck: no nuchal rigidity Respiratory: normal respiratory effort Auscultation: + diminished lung sounds Cardiovascular: Rate/Rhythm: regular rate and regular rhythm Extremities: no edema Gastrointestinal (Abdomen): Inspection/Auscultation: normal bowel sounds Percussion/Palpation: abdomen soft; abdomen nontender Musculoskeletal: Extremities: strength 5/5 throughout Skin: no rashes, warm and dry Neurologic: spicer, fluent speech, no tremor Results & Data ([facility]) Vital Signs (Past 12 Hours) Vital Signs Temp Pulse Pulse Resp BP Pulse Ox O2 Del Method 03/03/22 08:36 Room Air 03/03/22 07:35 63 03/03/22 07:26 37 C 65 18 106/62 95 03/03/22 04:20 36.7 C 66 18 128/56 L 97 Room Air 03/02/22 23:45 36.7 C 64 18 110/50 L 97 Room Air 03/02/22 23:13 66 Laboratory Results 03/03/22 05:06 03/02/22 05:45
[2022-03-03 13:47] LABS: BUN Creatinine Ratio 5.3 (10-20); Calcium 7.4 mg/dl (8.5-10.1); Creatinine Clr Calc Pharmacy 8.5 ml/min; Est GFR (African American) 6.3 ml/min; Est GFR (Non-African American) 5.5 ml/min; Potassium 4.2 mmol/L (3.5-5.1)
[2022-03-03] MEDS: amLODIPine BESYLATE 5 MG TAB PO SCH (17:52)
[2022-03-03] MEDS: LOSARTAN POTASSIUM 50 MG TAB PO SCH (17:52)
[2022-03-03] MEDS: SERTRALINE HCL 100 MG TABLET PO SCH (17:52)
[2022-03-03] MEDS: carvediloL 25 MG TAB PO SCH ×2 (17:52→21:26)
[2022-03-03] MEDS: hydrALAZINE TAB 50 MG TAB PO SCH ×2 (17:53→21:26)
[2022-03-03] MEDS: SERTRALINE HCL 50 MG TABLET PO SCH (17:54)
--- NOTE | 2022-03-03 19:01 | Hospitalist Progress Note ---
Date of Service March 03, 2022 Assessment & Plan (1) DKA (diabetic ketoacidosis): Plan: Presented with DKA after not appropriately covering for carbs after discharge from hospital on the same day of admission Hyperglycemia with elevated gap, HCO3 19- IVF boluses as needed for volume replacement - insulin infusion was used until gap decreased and glucose <250 -was given a couple small boluses of Normosol initially - glycemic consultation appreciated GLucose controlled, now on basal and bolus insulin (2) Controlled type 1 diabetes mellitus with diabetic neuropathy, with long-term current use of insulin: Plan: As above DKA/Hyperglycmeia resolved - Continue Basal bolus insulin - glycemic pharmacy managing- reviewed (3) Diabetic gastroparesis: Plan: Acute on chronic - likely exacerbated these last two admissions by elevated blood glucose levels - has done very well following his addition of remeron - continue remeron - antiemetics to include Reglan as needed and Compazine as needed, ppi-change to po -now resolved, agustín po (4) Hypertension: Plan: Acute on chronic -severely hypertensive on admission while actively vomiting -was given labetalol and IV hydralazine now BPs better controlled - continue with his home Carvedilol, amlodipine, hydralazine, and Cozaar (5) GERD (gastroesophageal reflux disease): Plan: Continue PPI but convert to po (6) Anxiety: Plan: Continue ativan prn-has not needed any Continue sertraline (7) ESRD (end stage renal disease): Plan: Dialysis dependant- MWF - nephrology consultation appreciated (8) Nonischemic cardiomyopathy: Plan: stable follow no acute needs (9) Leukocytosis: Plan: Likely stress response following dehydration and vomiting-now resolved (10) Anemia: Plan: Macrocytic, hgb stable at 10 - no evidence of acute blood loss - has received EPO with previous dialysis B12 and folate normal in 07/2021 Plan Dispo-continued stay, dc to home tomorrow as had dialysis today-if still agustín po and glucose controlled, dc Thursday Admission and Anticipated Discharge Date Admission Date: March 01, 2022 Subjective Feeling much better, no N/V today, tolerated HD well. Is moving bowels, no diarrhea. No other concerns Review of Systems Review of Systems: All systems reviewed & are unremarkable except as noted in HPI & below Physical Exam Constitutional: WD/WN, vitals as above ENMT: external ear and nose normal, oropharynx normal Neck: trachea midline, no thyromegaly Respiratory: normal respiratory effort, lungs clear to auscultation Cardiovascular: RRR, no murmur, no edema Chest (Breasts): Chest: normal inspection of chest Gastrointestinal (Abdomen): normal bowel sounds, soft, nontender, no hepatosplenomegaly Musculoskeletal: Extremities: extremities normal to inspection; no cyanosis and no clubbing Skin: no rashes, warm and dry Neurologic: moves all extremities and awake; no focal motor deficits Psychiatric: A+Ox3, euthymic affect Lymphatic: no lymphedema Results & Data Results & Data ([facility]) Vital Signs (Past 12 Hours) Vital Signs Temp Pulse Pulse Pulse Resp BP BP 03/03/22 17:51 84 186/82 H 03/03/22 16:30 36.7 C 74 172/70 H 03/03/22 16:15 69 128/51 L 03/03/22 15:00 70 157/73 H 03/03/22 16:00 70 160/70 H 03/03/22 15:30 70 157/70 H 03/03/22 15:00 70 157/73 H 03/03/22 14:30 70 157/77 H 03/03/22 14:00 70 147/68 H 03/03/22 13:45 69 141/68 H 03/03/22 13:30 68 137/69 03/03/22 13:15 68 134/66 03/03/22 13:00 67 127/62 03/03/22 12:52 67 129/64 03/03/22 12:38 36.8 C 67 03/03/22 11:06 36.5 C 64 16 111/64 03/03/22 08:36 03/03/22 07:35 63 03/03/22 07:26 37 C 65 18 106/62 Pulse Ox O2 Del Method 03/03/22 17:51 03/03/22 16:30 03/03/22 16:15 03/03/22 15:00 03/03/22 16:00 03/03/22 15:30 03/03/22 15:00 03/03/22 14:30 03/03/22 14:00 03/03/22 13:45 03/03/22 13:30 03/03/22 13:15 03/03/22 13:00 03/03/22 12:52 03/03/22 12:38 03/03/22 11:06 95 Room Air 03/03/22 08:36 Room Air 03/03/22 07:35 03/03/22 07:26 95 Laboratory Results 03/03/22 03/03/22 03/03/22 Range/Units 17:37 12:20 11:05 WBC (4.8-10.8) K/ul RBC (4.63-6.08) M/uL Hgb (14.0-18.0) g/dl Hct (40.1-51.0) % MCV (80.0-100.0) fL MCH (25.0-34.0) pg MCHC (32.0-36.0) g/dL RDW Std Deviation (36.4-46.3) fL RDW Coeff of Kami (11.5-14.5) % Plt Count (130-400) K/uL MPV (9.4-12.4) fL Immature Gran % (Auto) % Neut % (Auto) % Lymph % (Auto) % Pickett % (Auto) % Eos % (Auto) % Baso % (Auto) % Neut # (Auto) (1.4-6.5) K/uL Lymph # (Auto) (1.2-3.4) K/uL Pickett # (Auto) (0.24-0.82) K/uL Eos # (Auto) (0-0.50) K/uL Baso # (Auto) (0-0.2) K/uL Immature Gran # (Auto) (0.00-0.02) K/uL Sodium 134 L (136-145) mmol/L Potassium 4.2 D (3.5-5.1) mmol/L Chloride 98 (98-107) mmol/L Carbon Dioxide 22 (21-32) mmol/L Anion Gap 14 H (3-11) BUN 52 H (6-23) mg/dl Creatinine 9.86 H* D (0.6-1.4) mg/dl Est Cr Clr Drug Dosing 8.5 ml/min Est GFR ( Amer) 6.3 ml/min Est GFR (Non-Af Amer) 5.5 ml/min BUN/Creatinine Ratio 5.3 L (10-20) Glucose 211 H (70-99(Fasting)) mg/dl POC Glucose 151 H 184 H (70-99) mg/dl Calcium 7.4 L (8.5-10.1) mg/dl Phosphorus (2.5-4.9) mg/dl Magnesium (1.7-2.4) mg/dl 03/03/22 03/03/22 03/03/22 Range/Units 07:20 05:06 05:06 WBC 9.09 (4.8-10.8) K/ul RBC 3.27 L (4.63-6.08) M/uL Hgb 10.8 L (14.0-18.0) g/dl Hct 32.4 L (40.1-51.0) % MCV 99.1 (80.0-100.0) fL MCH 33.0 (25.0-34.0) pg MCHC 33.3 (32.0-36.0) g/dL RDW Std Deviation 45.2 (36.4-46.3) fL RDW Coeff of Kami 12.4 (11.5-14.5) % Plt Count 267 (130-400) K/uL MPV 9.7 (9.4-12.4) fL Immature Gran % (Auto) 0.6 % Neut % (Auto) 61.1 % Lymph % (Auto) 26.6 % Pickett % (Auto) 10.3 % Eos % (Auto) 1.0 % Baso % (Auto) 0.4 % Neut # (Auto) 5.55 (1.4-6.5) K/uL Lymph # (Auto) 2.42 (1.2-3.4) K/uL Pickett # (Auto) 0.94 H (0.24-0.82) K/uL Eos # (Auto) 0.09 (0-0.50) K/uL Baso # (Auto) 0.04 (0-0.2) K/uL Immature Gran # (Auto) 0.05 H (0.00-0.02) K/uL Sodium (136-145) mmol/L Potassium (3.5-5.1) mmol/L Chloride (98-107) mmol/L Carbon Dioxide (21-32) mmol/L Anion Gap (3-11) BUN (6-23) mg/dl Creatinine (0.6-1.4) mg/dl Est Cr Clr Drug Dosing ml/min Est GFR ( Amer) ml/min Est GFR (Non-Af Amer) ml/min BUN/Creatinine Ratio (10-20) Glucose (70-99(Fasting)) mg/dl POC Glucose 206 H (70-99) mg/dl Calcium (8.5-10.1) mg/dl Phosphorus 5.6 H (2.5-4.9) mg/dl Magnesium 2.4 (1.7-2.4) mg/dl 03/02/22 Range/Units 20:15 WBC (4.8-10.8) K/ul RBC (4.63-6.08) M/uL Hgb (14.0-18.0) g/dl Hct (40.1-51.0) % MCV (80.0-100.0) fL MCH (25.0-34.0) pg MCHC (32.0-36.0) g/dL RDW Std Deviation (36.4-46.3) fL RDW Coeff of Kami (11.5-14.5) % Plt Count (130-400) K/uL MPV (9.4-12.4) fL Immature Gran % (Auto) % Neut % (Auto) % Lymph % (Auto) % Pickett % (Auto) % Eos % (Auto) % Baso % (Auto) % Neut # (Auto) (1.4-6.5) K/uL Lymph # (Auto) (1.2-3.4) K/uL Pickett # (Auto) (0.24-0.82) K/uL Eos # (Auto) (0-0.50) K/uL Baso # (Auto) (0-0.2) K/uL Immature Gran # (Auto) (0.00-0.02) K/uL Sodium (136-145) mmol/L Potassium (3.5-5.1) mmol/L Chloride (98-107) mmol/L Carbon Dioxide (21-32) mmol/L Anion Gap (3-11) BUN (6-23) mg/dl Creatinine (0.6-1.4) mg/dl Est Cr Clr Drug Dosing ml/min Est GFR ( Amer) ml/min Est GFR (Non-Af Amer) ml/min BUN/Creatinine Ratio (10-20) Glucose (70-99(Fasting)) mg/dl POC Glucose 137 H (70-99) mg/dl Calcium (8.5-10.1) mg/dl Phosphorus (2.5-4.9) mg/dl Magnesium (1.7-2.4) mg/dl PG Care Time/CCT Total # of Minutes Spent Total Time Spent with Patient: Total time spent is greater than 50% in coordination of care (as documented) at patient's floor/unit and/or counseling patient: Coding Level of Care Code 62460 Subseq Hosp Care Lvl 2 Diagnoses DKA (diabetic ketoacidosis) E11.10 Controlled type 1 diabetes mellitus with diabetic neuropathy, with long-term current use of insulin E10.40 Diabetic gastroparesis E11.43; K31.84 Hypertension I10 Hypertension type: unspecified GERD (gastroesophageal reflux disease) K21.9 Anxiety F41.9 ESRD (end stage renal disease) N18.6 Nonischemic cardiomyopathy I42.8 Leukocytosis D72.829 Anemia D64.9 (1) Hypertension Hypertension type: unspecified Qualified Code(s): I10 - Essential (primary) hypertension
[2022-03-03] MEDS: MIRTAZAPINE TAB 15 MG TAB PO SCH (21:25)
[2022-03-03] MEDS: MELATONIN 3 MG TAB PO SCH (21:25)
[2022-03-04 07:04] LABS: BUN Creatinine Ratio 4.1 (10-20); Calcium 7.4 mg/dl (8.5-10.1); Creatinine Clr Calc Pharmacy 13.4 ml/min; Est GFR (Non-African American) 10.4 ml/min; Magnesium 2.1 mg/dl (1.7-2.4); Potassium 3.8 mmol/L (3.5-5.1)
[2022-03-04] MEDS: CHOLECALCIFEROL 1,000 UNITS 25 MCG TAB PO SCH (08:03)
[2022-03-04] MEDS: HEPARIN SOD 5,000 UNIT/0.5 ML VIAL SQ SCH (08:03)
[2022-03-04] MEDS: hydrALAZINE TAB 50 MG TAB PO SCH (08:03)
[2022-03-04] MEDS: carvediloL 25 MG TAB PO SCH (08:03)
[2022-03-04] MEDS: ATORVASTATIN 10 MG TAB PO SCH (08:03)
[2022-03-04] MEDS: INSULIN ASPART PER UNIT SC SCH ×3 (08:05→17:51)
[2022-03-04] MEDS: LANTUS PER UNIT CHARGE SQ SCH (08:10)
--- NOTE | 2022-03-04 08:29 | Pharmacy Report ---
Pharmacy Glycemic Short Note 2 - Date of Service March 04, 2022 - Glycemic Short BSG Results (Last 24 hours): 03/03/22 03/03/22 03/03/22 11:05 12:20 17:37 Glucose 211 H POC Glucose 184 H 151 H 03/03/22 03/04/22 03/04/22 20:48 05:35 08:00 Glucose 232 H POC Glucose 264 H 294 H 03/04/22 08:01 Glucose POC Glucose 269 H OUTPATIENT ANTIDIABETIC REGIMEN: * Lantus 16 units Q AM * Novolog CF 30 and CR 10 * A1c = 9.8% however pt has ESRD therefore interpret with caution due to inaccuracies ASSESSMENT: 03/04 * BSGs have ranged 151-269 over last 24 hrs in patient with known BSG lability. No episodes of hypoglycemia noted in last 24 hrs. * Fasting BSG elevated this AM with 12 units basal on board. Given historical basal needs - will not react to this value, rather will rely on correctional insulin today to bring BSG closer to goal. - no change in basal today * Post-prandial BSGs difficult to assess given yesterday's documented PO intake and noted insulin coverage. Will continue similar doses today with slightly greater prandial insulin dose given historical data and lack of hypoglycemic episode in last 24 hrs 03/03 * Type 1 diabetic admitted for DKA * Patient is known to glycemic control service from prior admissions * Patient initially managed with IV insulin infusion then transitioned to SQ basal/bolus regimen on 03/01 * Will utilize data from prior admissions to help guide insulin dosing this admission. He most commonly requires a basal insulin dose of ~12 units per day but needs do fluctuate based upon PO intake. Given his low post-lunch BSG yesterday, will utilize lower prandial insulin doses today. PLAN FOR INPATIENT GLYCEMIC CONTROL: * Basal insulin * Lantus 12 units SQ Q AM * Bolus insulin * NovoLog per scale ACHS or Q6hrs while NPO * Goal Range: Low 110 mg/dL - High 160 mg/dL * Correction Factor: 35 mg/dL/unit * Nutritional / Prandial insulin per carb ratio of 1 unit per 12 grams CHO consumed
[2022-03-04] MEDS ORDERED: PANTOprazole 40 MG TAB PO SCH (09:00)
[2022-03-04] MEDS: LOSARTAN POTASSIUM 50 MG TAB PO SCH (09:19)
[2022-03-04] MEDS: SERTRALINE HCL 50 MG TABLET PO SCH (09:19)
[2022-03-04] MEDS: amLODIPine BESYLATE 5 MG TAB PO SCH (09:20)
[2022-03-04] MEDS: SERTRALINE HCL 100 MG TABLET PO SCH (09:20)
--- NOTE | 2022-03-04 18:01 | Discharge Summary ---
Date of Service date of admission - March 01, 2022 date of discharge - March 04, 2022 Admission HPI Per Admitting Provider 51 YOM with medical history of: DM I, ESRD on dialysis, gastroparesis, pleural effusions (resolved), HTN, NICM, (ef 40-45%) pulmonary embolism (previously on warfarin dc'd 05/28). Patient is readmission following discharge on 02/28 for DKA. The patient went home on the evening of 02/28 following dialysis and eating full dinner without vomiting and glucose levels controlled. Patient states that he went home ate a frozen soft pretzel and some snacks, checked his glucose and was 450 so he gave himself his basal insulin and went to bed. He could not tell me why he did not cover himself without any other insulin. He states he awakened around 0200 in the morning with vomiting and abdominal pain. He came back to the EMD and noted to be in hyperglycemic again with HCO3 of 19 and elevated gap. His VBG is mixed alkalosis. Patient was started on insulin drip for glucose of 370. Hospitalist was called for admission. Patient remains with n/v BP marginal elevated but has had some >200 with review. Will replace some of his potassium IV with initiation of insulin. Will give additional 500 ml of ringers solution. Admit to PCU with hopes of weaning off insulin infusion today. Will need to control his vomiting and blood pressure management IV if unable to tolerate PO. Will consult nephrology for any dialysis needs over the weekend. COVID: NEGATIVE Principal Diagnosis 1. mild DKA 2. diabetic gastroparesis Discharge Exam gen - NAD mouth - MMM, no thrush neck - no JVD heart - RRR, s1 s2, 1/6 GOKUL LSB lungs - CTA b/l abd - soft NT ND BS+ ext - no edema, pulses 2+ b/l psych - a/o x 3 Discharge Data Allergies Allergy/AdvReac Type Severity Reaction Status Date / Time shellfish derived Allergy Severe anaphylaxis Verified 03/01/22 07:02 codeine Allergy Intermediate Hives Verified 03/01/22 07:02 promethazine Allergy Intermediate itchy/hives Verified 03/01/22 07:02 Consultations [facility] Nephrology Pharmacy Glycemic Team Hospital Course (1) DKA (diabetic ketoacidosis): Presented with DKA after not appropriately covering for carbs after discharge from hospital on the same day of admission. Presenting glucose was 370 with elevated anion gap and HCO3 19. He was fluid resuscitated cautiously (in light of ESRD status) and started on in sulin drip. He remained on insulin drip as managed by the pharmacy glycemic team and ultimately transitioned back to SC basal and bolus insulin regimen. No infectious issues were seen while hospitalized. Prior to discharge we contacted his diabetic provider in the endocrinology clinic (SUJEY Lazo). She will assist in arranging follow-up for Mr De Los Santos within a few days of discharge. (2) Uncontrolled type 1 diabetes mellitus: Recent hemoglobin a1c was 9.8%. Prior a1c values were about 7%. The patient had been suffering from severe diabetic gastroparesis for several years leading to very poor nutritional intake. However, within the last year, his appetite has been much more robust. This could be a reason for his recently uncontrolled DM. Again he will f/u with Qian Gamez in the endocrinology clinic shortly after discharge. (3) Diabetic gastroparesis: Acute on chronic - likely exacerbated these last two admissions by elevated blood glucose levels. Has done very well following his addition of remeron as initiated by the motility clinic at [facility]. Prior to discharge he was tolerating a diabetic/renal diet without difficulty. (4) Hypertension: Acute on chronic - severely hypertensive on admission while actively vomiting. BPs improved as his DKA resolved. Continue Carvedilol, amlodipine, hydralazine, and Cozaar. (5) GERD (gastroesophageal reflux disease): Continue PPI (6) Anxiety: Continue sertraline Continue remeron (7) ESRD (end stage renal disease): Dialysis dependant with schedule of Thursday/Thursday/Thursday. [facility] nephrology managed his dialysis while here. (8) Nonischemic cardiomyopathy: stable, improved - 06/2021 with EF 55-60% previous echos had shown EF 40-45%. was compensated during the stay with volume control via dialysis. (9) Leukocytosis: Likely stress response following dehydration and vomiting - now resolved. WBC count was 9 prior to discharge. (10) Anemia: Macrocytic, hgb stable at 10 - no evidence of acute blood loss - has received EPO with previous dialysis B12 and folate normal in 07/2021 Total Time Total Time Spent Total Time Spent (In Minutes): 25 Discharge Plan Discharge Items Patient Disposition: Home - Self-Care Reason For Visit: DKA (Diabetic ketoacidosis) Discharge Diagnosis: 1. diabetic ketoacidosis - resolved 2. type 1 diabetes - most recent hemoglobin a1c 9.8% 3. diabetic gastroparesis 4. end-stage renal disease on dialysis - schedule Thursday/Thursday/Thursday Activity: Resume your previous activity Non-emergency contact: Primary Care Provider, Specialist and Technical Account Executive Call non-emergency contact if: you have any medication questions and your symptoms worsen Follow-up/Referrals: Rae Gamez CRNP, RICKYE [Nurse Practitioner] - 04/01/22 7:30 am (in addition to the above appointment, Ms Gamez's office will be calling you on 03/05/22 to schedule a quick follow-up for this week. Your previously scheduled 10am nurse visit at the endocrinology office on 03/05/22 has been canceled - you do not need to attend the 10am visit. ) Abbi Ames MD [Primary Care Provider] - 03/13/22 11:20 am Diet: Carb Count or DM1 and Dialysis Renal Addtl Attending Provider Instructions: Mr De Los Santos, You were re-admitted to the hospital due to mild diabetic ketoacidosis (DKA). See handout on DKA. Your DKA resolved with IV insulin. Our pharmacy diabetes team was heavily involved in your diabetes care. We ultimately got you back on your usual regimen of lantus/basaglar with novolog. Your blood sugars were satisfactory on subcutaneous insulin. Your gastrointestinal symptoms (nausea, vomiting, abdominal pain) resolved with time and treatment of your DKA. I spoke with Ms Gamez from the endocrinology office. They will be contacting you tomorrow on 03/05/22 to set up an appointment for this week to review your diabetes care. You do not need to attend the 10am nurse visit that was previously scheduled on 03/05/22. Until you see them please take lantus 15 units every morning and follow your novolog sliding scale for meal/snack coverage. Be sure to cover all meals and snacks with novolog upon return home. Please report to dialysis tomorrow per your typical schedule. Return to [facility] if - * you have fevers over 100 degrees * you have worsening shortness of breath * you have chest pains * you have recurrent abdominal pains * you have recurrent nausea with vomiting * any other concerns Continue to feel better! Dr Townsend Pending Studies at Discharge: No Stand-Alone Forms: My [facility], Smoking Cessation Medications and DC Order Prescriptions: Continued prochlorperazine maleate [Compazine] 5 mg tablet 5 mg PO BID PRN (Reason: Nausea) acetaminophen 325 mg capsule 650 mg PO Q4H PRN (Reason: Pain (Scale Score 1-3)) lorazepam 0.5 mg tablet 0.5 mg PO Q6H PRN (Reason: Anxiety) Qty: 60 0RF losartan 100 mg tablet 100 mg PO QAM Qty: 90 3RF (DME) pen needle, diabetic [BD Ultra-Fine Annalise Pen Needle] 32 gauge x 5/32" needle See Rx Instructions .Route Qty: 500 3RF Rx Instructions: Use 5 per day with insulin injections atorvastatin 10 mg tablet 10 mg PO QAM Qty: 90 1RF pantoprazole 40 mg tablet,delayed release (DR/EC) 40 mg PO BID Qty: 60 5RF (DME) Contour Next Test Strips Strip See Rx Instructions .Route Qty: 100 3RF Rx Instructions: check blood sugar at least once a day carvedilol 25 mg tablet 50 mg PO BID Rx Instructions: TAKE THIS MEDICATION WITH FOOD melatonin 3 mg tablet 3 mg PO HS insulin aspart U-100 [Novolog Flexpen U-100 Insulin] 100 unit/mL (3 mL) insulin pen 5 unit SUBCUT TIDM PRN (Reason: sliding scale) Qty: 15 5RF Rx Instructions: Use per sliding scale. 1 unit for every 10 grams of carb. Correction Factor 1 unit per 30mg/dL above goal range. MDD 40 units daily. sertraline 100 mg tablet 100 mg PO QAM sertraline 25 mg tablet 25 mg PO QAM mirtazapine 7.5 mg tablet 7.5 mg PO HS Velphoro 500 mg tablet,chewable 1,000 mg PO WM amlodipine 10 mg tablet 10 mg PO DAILY hydralazine 50 mg tablet 50 mg PO BID Renal Vitamin 0.8 mg Tablet 1 tab PO QAM ondansetron HCl 4 mg tablet 8 mg PO Q4 PRN (Reason: nausea or vomiting) cholecalciferol (vitamin D3) [Vitamin D3] 50 mcg (2,000 unit) capsule 50 mcg PO QAM Changed insulin glargine [Basaglar KwikPen U-100 Insulin] 100 unit/mL (3 mL) insulin pen 15 unit SUBCUT QAM Qty: 15 5RF Discharge Orders: Discharge Order (Routine); Ordered 03/04/22 Ordered By: Guevara Dockery/Other Patient Handouts: Diabetic Ketoacidosis Admission Data Admit Date/Time: 03/01/22 07:37 Attending Provider: Guevara Townsend Admit Provider: Edgardo Coroks Primary Care Provider: Abbi Ames V. Other Providers: Sergo Rey ; Suman Montilla Other Interventions: Discharge Summary Assessment (RN) Last Done: 03/04/22 18:07 Coding Level of Care Code D/C DAY MANAGEMENT <30 MINS Diagnoses DKA (diabetic ketoacidosis) E11.10 Uncontrolled type 1 diabetes mellitus Diabetic gastroparesis E11.43; K31.84 Hypertension I10 Hypertension type: unspecified GERD (gastroesophageal reflux disease) K21.9 Anxiety F41.9 ESRD (end stage renal disease) N18.6 Nonischemic cardiomyopathy I42.8 Leukocytosis D72.829 Anemia D64.9
== END 2022-03-04 18:44 | disposition home or self-care (01) | DRG 637 ==
LOC: ED 05:03 → EDINP 07:37 → SUATTDRO 07:37 → 4W 11:02

== ENCOUNTER 2022-07-20 17:42 | Inpatient (IN) ==
[2022-07-20] MEDS ORDERED: SODIUM CHLORIDE 0.9% 1000ML 1,000 ML IV ONE ×2 (18:18→20:08)
[2022-07-20] MEDS ORDERED: hydrALAZINE HCL 20 MG/ML VIAL IV STA ×2 (18:20→20:38)
[2022-07-20 19:10] LABS: Basophils # (auto) 0.07 K/uL (0-0.2); Basophils % (auto) 0.5 %; Eosinophils # (auto) 0.03 K/uL (0-0.50); Eosinophils % (auto) 0.2 %; Hematocrit (blood only) 39.2 % (42.0-52.0); Hemoglobin 13.4 g/dl (14.0-18.0); Immature Granulocytes # (auto) 0.09 K/uL (0.01-0.20); Immature Granulocytes % (auto) 0.6 %; Lymphocytes # (auto) 1.03 K/uL (1.2-3.4); Lymphocytes % (auto) 6.8 %; Mean Corpuscular Hemoglobin 32.5 pg (25.0-34.0); Mean Corpuscular Hgb Conc 34.2 g/dL (32.0-36.0); Mean Corpuscular Volume 95.1 fL (80.0-100.0); Mean Platelet Volume 9.9 fL (9.4-12.4); Monocytes # (auto) 0.74 K/uL (0.11-0.59); Monocytes % (auto) 4.9 %; Neutrophils # (auto) 13.19 K/uL (1.40-6.50); Platelet Count 322 K/uL (130-400); RDW Coefficient of Variation 12.6 % (11.5-14.5); RDW Standard Deviation 43.8 fL (36.4-46.3); Red Blood Count 4.12 M/uL (4.70-6.10); White Blood Count 15.15 K/ul (4.8-10.8)
--- NOTE | 2022-07-20 19:10 | Emergency Department Note ---
Impression & Plan ESRD (end stage renal disease), Nausea & vomiting, Hypertensive urgency, Hypermagnesemia, Prolonged QT interval, Hyperglycemia ED Provider Note HISTORY OF PRESENT ILLNESS: Patient is a 51-year-old male presenting with nausea and vomiting. Patient reportedly started having nausea and persistent vomiting at 3 PM today. Denies any abdominal pain. Denies any chest pain or shortness of breath. Patient is an ESRD patient and last received dialysis 2 days ago and had his full session. Denies any recent fevers. He reports he does not make any urine. EMS gave the patient 8 mg of Zofran in route. On arrival to the ER, the patient is still complaining of profound nausea. Patient denies any headache or changes in vision ROS: as above PHYSICAL EXAM: Constitutional: Patient appears in no acute distress. HENT: Head: Normocephalic and atraumatic. Eyes: EOMI, PERRL Mouth/Throat: Mucous membranes moist. Neck: Trachea midline. Neck supple. Cardiovascular: RRR, No murmurs, rubs or gallops. Intact distal pulses. Pulmonary/Chest: No respiratory distress. Breath sounds clear and equal bilaterally. No wheezes or rales. No chest wall tenderness to palpation. Abdominal: BS +. Abdomen soft, no tenderness, rebound or guarding. Back: No midline spinal tenderness, no paraspinal tenderness, no CVA tenderness. Musculoskeletal: No edema, tenderness or deformity noted. Fistula in LUE. Skin: Warm and dry. No rash, erythema, pallor or cyanosis Psychiatric: Appropriate mood and affect for situation. Neurological: Alert and keenly responsive. CN II-XII grossly intact, moving all extremities equally and fully. MDM: - Vitals signs showed hypertension. - History obtained via patient and EMS. Patient presents with nausea and vomiting. Patient reports he started having nausea and vomiting around 1500 today. Denies any abdominal pain. Denies any fevers. He is an ESRD patient and received dialysis 2 days ago. Reports he is anuric at baseline. Denies any significant headache or changes in vision. - Chronic conditions affecting care: ESRD; DM-1; CAD; hx of PE - Differential diagnoses include, but are not limited to: DKA; pneumonia; hypertensive emergency; ACS - Order placed for continuous cardiac monitoring. At this time, monitor showed rate of 95 bpm with normal sinu rhythm, per my interpretation. - External medical records reviewed. EMS run sheet reviewed. Patient was vitally stable other than significant hypertension. He was given 8 mg of IV Zofran in route. - Laboratory workup interpreted by myself showed leukocytosis (WBC 15.15) with neutrophil shift; elevated anion gap (22); ESRD; hypophosphatemia (Mg 1.9); hypermagnesemia (Mg 2.5); hyperglycemia (Glucose 354) without evidence of DKA; normal potassium - VBG negative for acidosis - CXR negative for acute cardiopulmonary pathology, per my interpretation - Viral panel negative. - Patient given 2L NS, 4 mg IV zofran in ER for symptomatic management. - EKG interpreted by me shows normal sinus rhythm. Rate 86 bpm. Patient noted to have a prolonged QTc at 495, possibly secondary to significant amounts of Zofran. - UA not ordered, as patient is anuric. - CT head wo contrast obtained and negative for acute intracranial pathology, per my interpretation. - Patient given 10 mg IV hydralazine initially with minimal improvement in his BP. Given an additional 10 mg IV hydralazine, with improvement in BPs. - Unclear etiology of patient's vomiting. - Discussion was had with social sciences lecturer about patient's case and need for admission. - Hospitalist, Dr. Cervantes, consulted for admission. - [facility] I provided 62 minutes of critical care time to this patient's care outside of billable procedures. ASSESSMENT AND PLAN: Diagnosis: nausea and vomiting; hypertensive urgency; hypophosphatemia; hypermagnesemia; ESRD; hyperglycemia; prolonged QT interval Plan: admit Past Med/Surg History Medical History Anemia of chronic disease Anxiety AV fistula left upper arm CAD (coronary artery disease) mild, non-obstructive CAD per 10/2018 cardiac cath> [facility] Cardiac murmur follows with Dr. Powell Cellulitis of chest wall Chronic pleural effusion PleurX catheter placed 01/24/21--removed 07/2021 Cyclical vomiting syndrome Depression Diabetes Diabetic retinopathy Dialysis patient DKA (diabetic ketoacidosis) Empyema lung Esophagitis ESRD (end stage renal disease) M,W,F (Follows with Dr. Lor Guadalupe; [facility] GERD (gastroesophageal reflux disease) History of COVID-19 07/30, not hospitalized, congestion and headache-resolved History of pulmonary embolism 11/2020; unk etiology; was on warfarin (taken off 05/2021) Hypertension Lumbar radiculopathy Palliative care encounter Pericardial effusion Plantar wart, right foot Pulmonary embolism Recurrent pleural effusion on left Surgical History H/O shoulder surgery RIGHT History of appendectomy History of cardiac cath 10/2018= no stents, no obstructive disease (at [facility]) History of cataract surgery History of esophagogastroduodenoscopy (EGD) (~03/08/20) History of hip surgery left HIP ARTHROSCOPY History of lithotripsy History of open reduction and internal fixation (ORIF) procedure right hip Nausea and vomiting after administration of anesthetic agent S/P arteriovenous (AV) fistula creation Family History Grandfather Myocardial infarction Grandfather (Maternal) Family history of diabetes mellitus Uncle Myocardial infarction Father Hypertension Mother Kidney stone Other No family history of adverse response to anesthesia Denies family history of Colon cancer Ovarian cancer Prostate cancer Breast cancer Social History Smoking Status: Former smoker Tobacco Type: Cigarettes Second Hand Exposure: No; Hx Alcohol Use: No Hx Substance Use: No Preferred Language: Mongolian Communication Ability: Effective Visual Impairment: No Limitations Hearing Ability: Normal Mushroom Growing Supervisor Required: No Beliefs That Will Affect Care: None marital status: Current Living Situation: Parent Current Living Situation Comment: lives with parents. current occupational status: disabled How many Children do You have: 2 Feels Safe at Home: Yes Childhood Exposure to Second-Hand Smoke: Yes Dental Care, Regularly: No Physical Activity Frequency: 1-2 Times per Week Seatbelt Use: always Sunscreen Use: No Assistive Devices: None and Glasses Allergies Allergies Allergy/AdvReac Type Severity Reaction Status Date / Time shellfish derived Allergy Severe anaphylaxis Verified 07/20/22 19:24 codeine Allergy Intermediate Hives Verified 07/20/22 19:24 promethazine Allergy Intermediate itchy/hives Verified 07/20/22 19:24 Home Meds Home Medications Medication Instructions Recorded Confirmed melatonin 3 mg tablet 3 mg PO HS PRN Sleep 09/05/20 07/20/22 acetaminophen 325 mg capsule 650 mg PO Q4H PRN Pain (Scale 09/28/20 07/20/22 Score 1-3) carvedilol 25 mg tablet 50 mg PO BID 10/01/20 07/20/22 ondansetron HCl 4 mg tablet 8 mg PO Q4 PRN nausea or vomiting 03/19/21 07/20/22 prochlorperazine maleate 5 mg 5 mg PO BID PRN Nausea 06/03/21 07/20/22 tablet (Compazine) cholecalciferol (vitamin D3) 50 50 mcg PO QAM 10/25/21 07/20/22 mcg (2,000 unit) capsule (Vitamin D3) mirtazapine 7.5 mg tablet 7.5 mg PO HS 12/29/21 07/20/22 sertraline 100 mg tablet 100 mg PO QAM 12/29/21 07/20/22 sertraline 25 mg tablet 25 mg PO QAM 12/29/21 07/20/22 sucroferric oxyhydroxide 500 mg 1,000 mg PO TIDM 12/29/21 07/20/22 chewable tablet (Velphoro) amlodipine 10 mg tablet 10 mg PO QAM 03/01/22 07/20/22 bupropion HCl 100 mg tablet 100 mg PO QAM 07/20/22 07/20/22 insulin glargine 100 unit/mL (3 16 unit subcut QAM 07/20/22 07/20/22 mL) subcutaneous pen (Basaglar KwikPen U-100 Insulin) pantoprazole 40 mg tablet,delayed 40 mg PO BIDM 07/20/22 07/20/22 release Previous Rx's Medication Instructions Recorded lorazepam 0.5 mg tablet 0.5 mg PO Q6H PRN Anxiety #60 tabs 03/27/21 insulin aspart U-100 100 unit/mL 5 unit (0.05 mL) subcut TIDM PRN 10/24/21 (3 mL) subcutaneous pen (Novolog sliding scale #15 mL FlexPen U-100 Insulin aspart) pen needle, diabetic 32 gauge x #500 ea 12/17/21" (BD Ultra-Fine Annalise Pen Needle) atorvastatin 10 mg tablet 10 mg PO QAM #90 tabs 02/03/22 blood sugar diagnostic (Contour #100 ea 03/02/22 Next Test Strips) losartan 100 mg tablet 100 mg PO QAM #90 tabs 06/05/22 Results & Data (ED) Vital Signs Vital Signs - 24 hr 07/20/22 17:25 07/20/22 17:25 07/20/22 19:25 Temperature 36.4 C L Temperature Source Oral Pulse Rate 93 H Pulse Rate [Finger] 89 95 H Pulse Rhythm [Finger] Regular Pulse Strength [Finger] Normal Respiratory Rate 16 18 15 Respiratory Effort / Characteristics Non-Labored Respiratory Depth Normal Respiratory Pattern Regular Blood Pressure 232/125 H Blood Pressure [Left Arm] 232/125 H 193/85 H Blood Pressure [Right Calf] Blood Pressure Mean 160 Blood Pressure Mean [Left Arm] 160 121 Blood Pressure Mean [Right Calf] Blood Pressure Position [Right Calf] Pulse Oximetry 100 100 100 Oxygen Delivery Method Room Air Room Air Sepsis Recent Fever Within 48 Hours No Sepsis New/Unexplained Change in Mental Status N/A Sepsis Action Taken by Nursing No Action Required 07/20/22 20:35 07/20/22 21:11 07/20/22 21:47 Temperature Temperature Source Pulse Rate Pulse Rate [Finger] 96 H 100 H 99 H Pulse Rhythm [Finger] Regular Regular Regular Pulse Strength [Finger] Normal Normal Normal Respiratory Rate 15 20 15 Respiratory Effort / Characteristics Non-Labored Non-Labored Non-Labored Respiratory Depth Normal Normal Normal Respiratory Pattern Regular Regular Regular Blood Pressure Blood Pressure [Left Arm] 145/74 H Blood Pressure [Right Calf] 260/56 H 153/73 H Blood Pressure Mean Blood Pressure Mean [Left Arm] 97 Blood Pressure Mean [Right Calf] 124 99 Blood Pressure Position [Right Calf] Lying Pulse Oximetry 98 99 99 Oxygen Delivery Method Room Air Room Air Sepsis Recent Fever Within 48 Hours Sepsis New/Unexplained Change in Mental Status Sepsis Action Taken by Nursing Laboratory Data 07/20/22 18:43 07/20/22 18:43 Lab Results 07/20/22 07/20/22 07/20/22 Range/Units 18:43 18:43 18:43 WBC 15.15 H (4.8-10.8) K/ul RBC 4.12 L (4.70-6.10) M/uL Hgb 13.4 L (14.0-18.0) g/dl Hct 39.2 L (42.0-52.0) % MCV 95.1 (80.0-100.0) fL MCH 32.5 (25.0-34.0) pg MCHC 34.2 (32.0-36.0) g/dL RDW Std Deviation 43.8 (36.4-46.3) fL RDW Coeff of Kami 12.6 (11.5-14.5) % Plt Count 322 (130-400) K/uL MPV 9.9 (9.4-12.4) fL Immature Gran % (Auto) 0.6 % Neut % (Auto) 87.0 % Lymph % (Auto) 6.8 % [place] % (Auto) 4.9 % Eos % (Auto) 0.2 % Baso % (Auto) 0.5 % Neut # (Auto) 13.19 H (1.40-6.50) K/uL Lymph # (Auto) 1.03 L (1.2-3.4) K/uL [place] # (Auto) 0.74 H (0.11-0.59) K/uL Eos # (Auto) 0.03 (0-0.50) K/uL Baso # (Auto) 0.07 (0-0.2) K/uL Immature Gran # (Auto) 0.09 (0.01-0.20) K/uL ABG pH (7.35-7.45) ABG pCO2 (35-46) mmHg ABG pO2 (80-95) mmHg ABG HCO3 (19-24) mmol/L ABG O2 Saturation (90-95) % ABG Base Excess (-9-1.8) mEq/L Eder Test (Pos) Oxygen Given Sodium 136 (136-145) mmol/L Potassium TNP Chloride 92 L (98-107) mmol/L Carbon Dioxide 22 (21-32) mmol/L Anion Gap 22 H (3-11) BUN 47 H (6-23) mg/dl Creatinine 9.23 H* (0.6-1.4) mg/dl Est Cr Clr Drug Dosing 9.3 ml/min Est GFR ( Amer) 6.8 ml/min Est GFR (Non-Af Amer) 5.9 ml/min BUN/Creatinine Ratio 5.1 L (10-20) Glucose 285 H (70-99(Fasting)) mg/dl POC Glucose (70-99) mg/dl Calcium 10.2 H (8.5-10.1) mg/dl Phosphorus 1.9 L (2.5-4.9) mg/dl Magnesium 2.5 H (1.7-2.4) mg/dl Total Bilirubin 1.1 H (0.2-1.0) mg/dl AST TNP ALT 16 (7-52) U/L Alkaline Phosphatase 154 H (34-104) U/L Troponin I High Sens 12.0 (0-20) pg/ml Total Protein 7.8 (6.0-8.3) gm/dl Albumin 4.7 (3.4-5.0) gm/dl Globulin 3.1 (2.5-4.0) gm/dl Albumin/Globulin Ratio 1.5 (0.9-2) Procalcitonin Cancelled Adenovirus (PCR) (NotDetected) B. pertussis DNA (PCR) (NotDetected) B.parapertussis DNA PCR (NotDetected) C. pneumoniae DNA (PCR) (NotDetected) Coronavirus OC43 (PCR) (NotDetected) Coronavirus HKU1 (PCR) (NotDetected) Coronavirus 229E (PCR) (NotDetected) SARS-CoV-2 (PCR) (NotDetected) Coronavirus NL63 (PCR) (NotDetected) Human Metapneumovir PCR (NotDetected) Influenza Type A (PCR) (NotDetected) Influenza Type B (PCR) (NotDetected) M. pneumoniae (PCR) (NotDetected) Parainfluenza 1 (PCR) (NotDetected) Parainfluenza 2 (PCR) (NotDetected) Parainfluenza 3 (PCR) (NotDetected) Parainfluenza 4 (PCR) (NotDetected) RSV (PCR) (NotDetected) Entero/Rhino (PCR) (NotDetected) 07/20/22 07/20/22 07/20/22 Range/Units 18:46 19:22 20:11 WBC (4.8-10.8) K/ul RBC (4.70-6.10) M/uL Hgb (14.0-18.0) g/dl Hct (42.0-52.0) % MCV (80.0-100.0) fL MCH (25.0-34.0) pg MCHC (32.0-36.0) g/dL RDW Std Deviation (36.4-46.3) fL RDW Coeff of Kami (11.5-14.5) % Plt Count (130-400) K/uL MPV (9.4-12.4) fL Immature Gran % (Auto) % Neut % (Auto) % Lymph % (Auto) % [place] % (Auto) % Eos % (Auto) % Baso % (Auto) % Neut # (Auto) (1.40-6.50) K/uL Lymph # (Auto) (1.2-3.4) K/uL [place] # (Auto) (0.11-0.59) K/uL Eos # (Auto) (0-0.50) K/uL Baso # (Auto) (0-0.2) K/uL Immature Gran # (Auto) (0.01-0.20) K/uL ABG pH (7.35-7.45) ABG pCO2 (35-46) mmHg ABG pO2 (80-95) mmHg ABG HCO3 (19-24) mmol/L ABG O2 Saturation (90-95) % ABG Base Excess (-9-1.8) mEq/L Eder Test (Pos) Oxygen Given Sodium (136-145) mmol/L Potassium 4.0 Chloride (98-107) mmol/L Carbon Dioxide (21-32) mmol/L Anion Gap (3-11) BUN (6-23) mg/dl Creatinine (0.6-1.4) mg/dl Est Cr Clr Drug Dosing ml/min Est GFR ( Amer) ml/min Est GFR (Non-Af Amer) ml/min BUN/Creatinine Ratio (10-20) Glucose (70-99(Fasting)) mg/dl POC Glucose 308 H* (70-99) mg/dl Calcium (8.5-10.1) mg/dl Phosphorus (2.5-4.9) mg/dl Magnesium (1.7-2.4) mg/dl Total Bilirubin (0.2-1.0) mg/dl AST 10 L ALT (7-52) U/L Alkaline Phosphatase (34-104) U/L Troponin I High Sens (0-20) pg/ml Total Protein (6.0-8.3) gm/dl Albumin (3.4-5.0) gm/dl Globulin (2.5-4.0) gm/dl Albumin/Globulin Ratio (0.9-2) Procalcitonin Adenovirus (PCR) Not Detected (NotDetected) B. pertussis DNA (PCR) Not Detected (NotDetected) B.parapertussis DNA PCR Not Detected (NotDetected) C. pneumoniae DNA (PCR) Not Detected (NotDetected) Coronavirus OC43 (PCR) Not Detected (NotDetected) Coronavirus HKU1 (PCR) Not Detected (NotDetected) Coronavirus 229E (PCR) Not Detected (NotDetected) SARS-CoV-2 (PCR) Not Detected (NotDetected) Coronavirus NL63 (PCR) Not Detected (NotDetected) Human Metapneumovir PCR Not Detected (NotDetected) Influenza Type A (PCR) Not Detected (NotDetected) Influenza Type B (PCR) Not Detected (NotDetected) M. pneumoniae (PCR) Not Detected (NotDetected) Parainfluenza 1 (PCR) Not Detected (NotDetected) Parainfluenza 2 (PCR) Not Detected (NotDetected) Parainfluenza 3 (PCR) Not Detected (NotDetected) Parainfluenza 4 (PCR) Not Detected (NotDetected) RSV (PCR) Not Detected (NotDetected) Entero/Rhino (PCR) Not Detected (NotDetected) 07/20/22 07/20/22 Range/Units 20:16 21:37 WBC (4.8-10.8) K/ul RBC (4.70-6.10) M/uL Hgb (14.0-18.0) g/dl Hct (42.0-52.0) % MCV (80.0-100.0) fL MCH (25.0-34.0) pg MCHC (32.0-36.0) g/dL RDW Std Deviation (36.4-46.3) fL RDW Coeff of Kami (11.5-14.5) % Plt Count (130-400) K/uL MPV (9.4-12.4) fL Immature Gran % (Auto) % Neut % (Auto) % Lymph % (Auto) % [place] % (Auto) % Eos % (Auto) % Baso % (Auto) % Neut # (Auto) (1.40-6.50) K/uL Lymph # (Auto) (1.2-3.4) K/uL [place] # (Auto) (0.11-0.59) K/uL Eos # (Auto) (0-0.50) K/uL Baso # (Auto) (0-0.2) K/uL Immature Gran # (Auto) (0.01-0.20) K/uL ABG pH 7.56 H* (7.35-7.45) ABG pCO2 18 L (35-46) mmHg ABG pO2 133 H (80-95) mmHg ABG HCO3 16 L (19-24) mmol/L ABG O2 Saturation 99.9 H (90-95) % ABG Base Excess -3.5 (-9-1.8) mEq/L Eder Test Pos (Pos) Oxygen Given room air Sodium (136-145) mmol/L Potassium Chloride (98-107) mmol/L Carbon Dioxide (21-32) mmol/L Anion Gap (3-11) BUN (6-23) mg/dl Creatinine (0.6-1.4) mg/dl Est Cr Clr Drug Dosing ml/min Est GFR ( Amer) ml/min Est GFR (Non-Af Amer) ml/min BUN/Creatinine Ratio (10-20) Glucose (70-99(Fasting)) mg/dl POC Glucose 354 H* (70-99) mg/dl Calcium (8.5-10.1) mg/dl Phosphorus (2.5-4.9) mg/dl Magnesium (1.7-2.4) mg/dl Total Bilirubin (0.2-1.0) mg/dl AST ALT (7-52) U/L Alkaline Phosphatase (34-104) U/L Troponin I High Sens (0-20) pg/ml Total Protein (6.0-8.3) gm/dl Albumin (3.4-5.0) gm/dl Globulin (2.5-4.0) gm/dl Albumin/Globulin Ratio (0.9-2) Procalcitonin Adenovirus (PCR) (NotDetected) B. pertussis DNA (PCR) (NotDetected) B.parapertussis DNA PCR (NotDetected) C. pneumoniae DNA (PCR) (NotDetected) Coronavirus OC43 (PCR) (NotDetected) Coronavirus HKU1 (PCR) (NotDetected) Coronavirus 229E (PCR) (NotDetected) SARS-CoV-2 (PCR) (NotDetected) Coronavirus NL63 (PCR) (NotDetected) Human Metapneumovir PCR (NotDetected) Influenza Type A (PCR) (NotDetected) Influenza Type B (PCR) (NotDetected) M. pneumoniae (PCR) (NotDetected) Parainfluenza 1 (PCR) (NotDetected) Parainfluenza 2 (PCR) (NotDetected) Parainfluenza 3 (PCR) (NotDetected) Parainfluenza 4 (PCR) (NotDetected) RSV (PCR) (NotDetected) Entero/Rhino (PCR) (NotDetected) Administered Medications Discontinued Medications Hydralazine HCl (Hydralazine Hcl 20 Mg/Ml Vial) 10 mg IV NOW STA Stop: 07/20/22 18:21 Last Admin: 07/20/22 18:25 Dose: 10 mg Documented By: IBIS Hydralazine HCl (Hydralazine Hcl 20 Mg/Ml Vial) 10 mg IV NOW STA Stop: 07/20/22 20:39 Last Admin: 07/20/22 20:48 Dose: 10 mg Documented By: BRONSON Sodium Chloride (Nss 1000ml) 1,000 mls @ 999 mls/hr IV .Q1H1M ONE Stop: 07/20/22 19:18 Last Infusion: 07/20/22 19:55 Dose: 999 mls/hr Documented By: Admin: 07/20/22 18:25 Dose: 999 mls/hr Documented By: IBIS Sodium Chloride (Nss 1000ml) 1,000 mls @ 999 mls/hr IV .Q1H1M ONE Stop: 07/20/22 21:08 Last Admin: 07/20/22 20:20 Dose: 999 mls/hr Documented By: BRONSON Ondansetron HCl (Ondansetron Inj 2 Mg/Ml 2 Ml Vial) 4 mg IV NOW STA Stop: 07/20/22 20:11 Last Admin: 07/20/22 20:21 Dose: 4 mg Documented By: BRONSON Imaging Data Radiologist's Impression: Chest X-Ray 07/20/22 18:19 XR chest 1V portable CLINICAL HISTORY: hypertension; nausea and vomiting COMPARISON STUDY: Chest radiograph February 27, 2022. Chest CT July 18, 2021. FINDINGS: Lung volumes are normal. Lungs are clear. There is no pneumothorax or pleural effusion. Cardiac size is normal. Mediastinal contours are normal. There is no evidence for pulmonary edema. IMPRESSION: No acute cardiopulmonary findings. ACT 112: Negative or not required by law. Electronically signed by: Gabino Cool M.D. 07/20/2022 7:29 PM Discharge Plan Visit Data Chief Complaint: Illness ED Provider: Mitra Moncada Discharge Problem: ESRD (end stage renal disease), Nausea & vomiting, Hypertensive urgency, Hypermagnesemia, Prolonged QT interval, Hyperglycemia Forms Stand Alone Forms: [employer] Prescriptions Prescriptions: No Action prochlorperazine maleate [Compazine] 5 mg tablet 5 mg PO BID PRN (Reason: Nausea) acetaminophen 325 mg capsule 650 mg PO Q4H PRN (Reason: Pain (Scale Score 1-3)) lorazepam 0.5 mg tablet 0.5 mg PO Q6H PRN (Reason: Anxiety) Qty: 60 0RF (DME) pen needle, diabetic [BD Ultra-Fine Annalise Pen Needle] 32 gauge x 5/32" needle See Rx Instructions .Route Qty: 500 3RF Rx Instructions: Use 5 per day with insulin injections atorvastatin 10 mg tablet 10 mg PO QAM Qty: 90 1RF (DME) Contour Next Test Strips Strip See Rx Instructions .Route Qty: 100 3RF Rx Instructions: check blood sugar at least once a day losartan 100 mg tablet 100 mg PO QAM Qty: 90 3RF carvedilol 25 mg tablet 50 mg PO BID Rx Instructions: TAKE THIS MEDICATION WITH FOOD melatonin 3 mg tablet 3 mg PO HS PRN (Reason: Sleep) insulin aspart U-100 [Novolog FlexPen U-100 Insulin] 100 unit/mL (3 mL) insulin pen 5 unit SUBCUT TIDM PRN (Reason: sliding scale) Qty: 15 5RF Rx Instructions: Use per sliding scale. 1 unit for every 12 grams of carb. Correction Factor 1 unit per 30mg/dL above goal range. MDD 40 units daily. sertraline 100 mg tablet 100 mg PO QAM Rx Instructions: TOTAL DOSE 125 MG--TAKES WITH 25 MG TAB. sertraline 25 mg tablet 25 mg PO QAM Rx Instructions: TOTAL DOSE 125 MG--TAKES WITH 100 MG TAB. mirtazapine 7.5 mg tablet 7.5 mg PO HS Velphoro 500 mg tablet,chewable 1,000 mg PO TIDM amlodipine 10 mg tablet 10 mg PO QAM ondansetron HCl 4 mg tablet 8 mg PO Q4 PRN (Reason: nausea or vomiting) cholecalciferol (vitamin D3) [Vitamin D3] 50 mcg (2,000 unit) capsule 50 mcg PO QAM bupropion HCl 100 mg tablet 100 mg PO QAM pantoprazole 40 mg tablet,delayed release (DR/EC) 40 mg PO BIDM insulin glargine [Basaglar KwikPen U-100 Insulin] 100 unit/mL (3 mL) insulin pen 16 unit SUBCUT QAM Referrals Referrals: Abbi Ames MD [Primary Care Provider] -
--- NOTE | 2022-07-20 19:30 | XRay Report ---
XR chest 1V portable CLINICAL HISTORY: hypertension; nausea and vomiting COMPARISON STUDY: Chest radiograph February 27, 2022. Chest CT July 18, 2021. FINDINGS: Lung volumes are normal. Lungs are clear. There is no pneumothorax or pleural effusion. Car diac size is normal. Mediastinal contours are normal. There is no evidence for pulmonary edema. IMPRESSION: No acute cardiopulmonary findings. ACT 112: Negative or not required by law. Electronically signed by: Gabino Cool M.D. 07/20/2022 7:29 PM
[2022-07-20 19:34] LABS: Alanine Aminotransferase 16 U/L (7-52); Albumin Globulin Ratio 1.5 (0.9-2); Albumin Level 4.7 gm/dl (3.4-5.0); Alkaline Phosphatase 154 U/L (34-104); Anion Gap 22 (3-11); BUN Creatinine Ratio 5.1 (10-20); Bilirubin,Total 1.1 mg/dl (0.2-1.0); Blood Urea Nitrogen 47 mg/dl (6-23); Calcium 10.2 mg/dl (8.5-10.1); Carbon Dioxide 22 mmol/L (21-32); Chloride 92 mmol/L (98-107); Creatinine Clr Calc Pharmacy 9.3 ml/min; Est GFR (African American) 6.8 ml/min; Est GFR (Non-African American) 5.9 ml/min; Globulin 3.1 gm/dl (2.5-4.0); Glucose 285 mg/dl (70-99(Fasting)); Magnesium 2.5 mg/dl (1.7-2.4); Phosphorus 1.9 mg/dl (2.5-4.9); Sodium 136 mmol/L (136-145); Total Protein 7.8 gm/dl (6.0-8.3)
[2022-07-20] MEDS ORDERED: DEXTROSE 50% 50 ML SYRINGE IV PRN (20:09)
[2022-07-20] MEDS ORDERED: GLUCOSE 40% GEL 15 GM TUBE PO PRN (20:09)
[2022-07-20] MEDS ORDERED: CARBOHYDRATES FOR HYPOGLYCEMIA PO PRN (20:09)
[2022-07-20] MEDS ORDERED: GLUCAGON FOR INJ 1 MG VIAL SQ PRN (20:09)
[2022-07-20] MEDS ORDERED: GLUCOSE 10 TAB/TUBE PO PRN (20:09)
[2022-07-20] MEDS ORDERED: ONDANSETRON INJ 2 MG/ML 2 ML VIAL IV STA (20:10)
[2022-07-20 20:11] LABS: Adenovirus PCR Not Detected (NotDetected); Bordetella parapertussis PCR Not Detected (NotDetected); Bordetella pertussis PCR Not Detected (NotDetected); Chlamydia pneumoniae PCR Not Detected (NotDetected); Coronavirus 229E PCR Not Detected (NotDetected); Coronavirus CoV-2 (COVID19)PCR Not Detected (NotDetected); Coronavirus HKU1 PCR Not Detected (NotDetected); Coronavirus NL63 PCR Not Detected (NotDetected); Coronavirus OC43PCR Not Detected (NotDetected); Human Metapneumovirus PCR Not Detected (NotDetected); Influenza A PCR Not Detected (NotDetected); Influenza B PCR Not Detected (NotDetected); Mycoplasma pneumoniae PCR Not Detected (NotDetected); Parainfluenza Virus 1 PCR Not Detected (NotDetected); Parainfluenza Virus 2 PCR Not Detected (NotDetected); Parainfluenza Virus 3 PCR Not Detected (NotDetected); Parainfluenza Virus 4 PCR Not Detected (NotDetected); Respiratory Syncytial VirusPCR Not Detected (NotDetected); Rhinovirus/Enterovirus PCR Not Detected (NotDetected)
[2022-07-20] MEDS ORDERED: INSULIN REGULAR 250 UNITS in SODIUM CHLORIDE 0.9% 247.5 ML IV SCH (20:15)
[2022-07-20 20:28] LABS: Base Excess ABG -3.5 mEq/L (-9-1.8); HCO3 ABG 16 mmol/L (19-24); Oxygen Saturation ABG 99.9 % (90-95); PCO2 ABG 18 mmHg (35-46); PO2 ABG 133 mmHg (80-95)
[2022-07-20 20:32] LABS: Allen Test Pos (Pos); pH ABG 7.56 (7.35-7.45)
--- NOTE | 2022-07-20 22:07 | History & Physical Report ---
Date of Service July 20, 2022 Assessment & Plan (1) Nausea vomiting and diarrhea: Plan: 51-year-old male with history of end-stage renal disease, hypertension, diabetes presenting with 48 hours of persistent intractable nausea with multiple episodes of vomiting as well as 1 day of watery diarrhea. Patient has been given multiple doses of Zofran with minimal relief. Mild leukocytosis with WBC = 15, neutrophil predominance. Patient with high anion gap of 22. Admit to PCU Check stool PCR Check BMP every 4 hours to monitor anion gap Check lactate with next BMP Zofran 4 mg IV every 6 hours as needed nausea Compazine 5 mg IV every 6 hours as needed for nausea Ativan 0.5 mg IV every 6 hours as needed for nausea Of note, patient with prolonged QT interval noted on EKG. He is also on several psychiatric agents that may have effect on QT as well. May benefit from receiving Ativan as first-line agent for nausea for Zofran and Compazine. Will check EKG in the morning. (2) Hypertensive urgency: Plan: Patient hypertensive on arrival at 260/56. He was administered hydralazine 10 mg IV x2 doses in the ER with appropriate response. Presently blood pressure is 153/73. Most likely multifactorial. Patient has not had his medications since yesterday. No symptoms of headache, visual change, focal deficit, chest pain or shortness of breath. No evidence of end-organ damage. Control of nausea as above We will order oral medicationscontinue amlodipine 10 mg p.o. every morning, carvedilol 50 mg p.o. twice daily, losartan 100 mg p.o. every morning We will provide hydralazine 10 mg IV q 4 hours as needed for blood pressure greater than 180/110 while patient is p.o. intolerant (3) Hyperglycemia: Plan: Patient with hyperglycemia. Blood sugar on arrival = 354. Also with high gap to metabolic acidosis with gap = 22. Patient reports he did take his insulin yesterday. He is not acidemic on ABG. We will continue insulin drip Fingerstick every hour BMP every 4 hours (4) ESRD (end stage renal disease): Plan: Patient with end-stage renal disease on hemodialysis q. Thursday and Thursday. His last full dialysis was on Thursday. He is an uric. Potassium is acceptable presently at 4. His serum bicarbonate is acceptable at 22. High anion gap of 22 which we will be monitoring with frequent labs Nephrology consultation appreciated We will hold Velphoro as patient has low phosphorus of 1.9 (5) GERD (gastroesophageal reflux disease): Plan: Chronic. Patient is on Protonix 40 mg p.o. twice daily Protonix 40 mg IV twice daily while patient is p.o. intolerant Monitor for evidence of hematemesis or coffee-ground emesis as patient notes dark vomitus, uncertain if it was blood Monitor CBC (6) Depression: Plan: Patient with anxiety and depression. Continue bupropion 10 mg p.o. every morning Continue sertraline 125 mg p.o. daily Caution with QT interval. EKG ordered for the morning F/E/N - NSS at 100mL/hr x 1 liter - has already received 2L in ER, is anuric but appears dry on exam. K is WNL. Mg is elevated at 2.5 and PO4 is low at 1.9. Hold PO4-binder. Repeat labs q 4 hrs. Clear liquids as tolerated Ppx - Protonix Code - Full Dispo - Admit to PCU History of Present Illness Chief Complaint: nausea, vomiting hyperglycemia, hypertension Primary Care Provider: Abbi Ames MD Jorge Alberto De Los Santos is a 51-year-old male with history of end-stage renal disease on hemodialysis q. Thursday/Thursday/Thursday, diabetes, coronary artery disease, hypertension presenting with intractable nausea and vomiting as well as diarrhea. Patient reports persistent nausea ongoing for the last 48 hours. He has vomited numerous times. Mostly liquid, some concern for dark blood as well. He has also had watery diarrhea x1 day. Nonbloody/nonmucoid. He has not had any medications or oral intake since yesterday. Patient also with dry cough and some chills. Denies abdominal pain, distention, shortness of breath. Denies fever. Patient is an uric. Last full dialysis treatment was Thursday without difficulty. He denies recent travel or sick contacts. Upon arrival to the ER patient markedly hypertensive at 260/56. Hyperglycemic with BSG = 354. Presently with ongoing nausea. Vomited several times during my encounter. Otherwise no additional complaints. ER course: Hydralazine 10 mg IV x2 doses Zofran 4 mg IV Normal saline x2 L Allergies Allergy/AdvReac Type Severity Reaction Status Date / Time shellfish derived Allergy Severe anaphylaxis Verified 07/20/22 19:24 codeine Allergy Intermediate Hives Verified 07/20/22 19:24 promethazine Allergy Intermediate itchy/hives Verified 07/20/22 19:24 Home Medications Medication Instructions Recorded Confirmed Type melatonin 3 mg tablet 3 mg PO HS PRN Sleep 09/05/20 07/20/22 History acetaminophen 325 mg capsule 650 mg PO Q4H PRN Pain (Scale 09/28/20 07/20/22 History Score 1-3) carvedilol 25 mg tablet 50 mg PO BID 10/01/20 07/20/22 History ondansetron HCl 4 mg tablet 8 mg PO Q4 PRN nausea or vomiting 03/19/21 07/20/22 History lorazepam 0.5 mg tablet 0.5 mg PO Q6H PRN Anxiety #60 tabs 03/27/21 07/20/22 Rx prochlorperazine maleate 5 mg 5 mg PO BID PRN Nausea 06/03/21 07/20/22 History tablet (Compazine) insulin aspart U-100 100 unit/mL 5 unit (0.05 mL) subcut TIDM PRN 10/24/21 07/20/22 Rx (3 mL) subcutaneous pen (Novolog sliding scale #15 mL FlexPen U-100 Insulin aspart) cholecalciferol (vitamin D3) 50 50 mcg PO QAM 10/25/21 07/20/22 History mcg (2,000 unit) capsule (Vitamin D3) pen needle, diabetic 32 gauge x #500 ea 12/17/21 04/01/22 Rx 5/32" (BD Ultra-Fine Annalise Pen Needle) mirtazapine 7.5 mg tablet 7.5 mg PO HS 12/29/21 07/20/22 History sertraline 100 mg tablet 100 mg PO QAM 12/29/21 07/20/22 History sertraline 25 mg tablet 25 mg PO QAM 12/29/21 07/20/22 History sucroferric oxyhydroxide 500 mg 1,000 mg PO TIDM 12/29/21 07/20/22 History chewable tablet (Velphoro) atorvastatin 10 mg tablet 10 mg PO QAM #90 tabs 02/03/22 07/20/22 Rx amlodipine 10 mg tablet 10 mg PO QAM 03/01/22 07/20/22 History blood sugar diagnostic (Contour #100 ea 03/02/22 04/01/22 Rx Next Test Strips) losartan 100 mg tablet 100 mg PO QAM #90 tabs 06/05/22 07/20/22 Rx bupropion HCl 100 mg tablet 100 mg PO QAM 07/20/22 07/20/22 History insulin glargine 100 unit/mL (3 16 unit subcut QAM 07/20/22 07/20/22 History mL) subcutaneous pen (Basaglar KwikPen U-100 Insulin) pantoprazole 40 mg tablet,delayed 40 mg PO BIDM 07/20/22 07/20/22 History release Past Med/Surg History Medical History Anemia of chronic disease Anxiety AV fistula left upper arm CAD (coronary artery disease) mild, non-obstructive CAD per 10/2018 cardiac cath> [facility] Cardiac murmur follows with Dr. Powell Cellulitis of chest wall Chronic pleural effusion PleurX catheter placed 01/24/21--removed 07/2021 Cyclical vomiting syndrome Depression Diabetes Diabetic retinopathy Dialysis patient DKA (diabetic ketoacidosis) Empyema lung Esophagitis ESRD (end stage renal disease) M,W,F (Follows with Dr. Lor Guadalupe; [facility]) GERD (gastroesophageal reflux disease) History of COVID-19 07/30, not hospitalized, congestion and headache-resolved History of pulmonary embolism 11/2020; unk etiology; was on warfarin (taken off 05/2021) Hypertension Lumbar radiculopathy Palliative care encounter Pericardial effusion Plantar wart, right foot Pulmonary embolism Recurrent pleural effusion on left Surgical History H/O shoulder surgery RIGHT History of appendectomy History of cardiac cath 10/2018= no stents, no obstructive disease (at [facility]) History of cataract surgery History of esophagogastroduodenoscopy (EGD) (~03/08/20) History of hip surgery left HIP ARTHROSCOPY History of lithotripsy History of open reduction and internal fixation (ORIF) procedure right hip Nausea and vomiting after administration of anesthetic agent S/P arteriovenous (AV) fistula creation Family History Grandfather Myocardial infarction Grandfather (Maternal) Family history of diabetes mellitus Uncle Myocardial infarction Father Hypertension Mother Kidney stone Other No family history of adverse response to anesthesia Denies family history of Colon cancer Ovarian cancer Prostate cancer Breast cancer Social History Smoking Status: Former smoker Tobacco Type: Cigarettes Second Hand Exposure: No; Hx Alcohol Use: No Hx Substance Use: No Preferred Language: Swiss Communication Ability: Effective Visual Impairment: No Limitations Hearing Ability: Normal Senior Consultant Required: No Beliefs That Will Affect Care: None marital status: Current Living Situation: Parent Current Living Situation Comment: lives with parents. current occupational status: disabled How many Children do You have: 2 Feels Safe at Home: Yes Childhood Exposure to Second-Hand Smoke: Yes Dental Care, Regularly: No Physical Activity Frequency: 1-2 Times per Week Seatbelt Use: always Sunscreen Use: No Assistive Devices: None and Glasses Review of Systems Review of Systems: All systems reviewed & are unremarkable except as noted in HPI & below Physical Exam Physical Exam: General: patient in moderate distress secondary to ongoing nausea, multiple episodes of vomiting during my encounter. He is awake alert and oriented. Able to answer questions appropriately and follow commands Skin: warm, dry, intact, no rashes or lesions HEENT: NC/AT, PERRL, EOMI, anicteric sclera, conjunctiva without injection, external ear normal to inspection and nontender, nares patent, dry mucus membranes, dentition intact, no oropharyngeal lesions, neck supple, trachea midline, no LAD, no thyromegaly, no JVD Heart: +S1/S2, regular, no m/r/g Lungs: equal air entry bilaterally, no rales/rhonchi/wheezes Abd: +BS, soft, NT/ND, no masses/organomegaly/ascites Ext: warm, 2+ pulses in UE/LE bilaterally, no clubbing/cyanosis or edema, AV fistula left upper extremity with palpable thrill Neuro: nonfocal, patient AA&O x 4, speech intact, no facial droop, moving all extremities on command with equal strength 5/5 Results & Data Results & Data ([facility]) Vital Signs (Past 12 Hours) Vital Signs Temp Pulse Pulse Resp BP BP BP 07/20/22 21:47 99 H 15 153/73 H 07/20/22 21:11 100 H 20 145/74 H 07/20/22 20:35 96 H 15 260/56 H 07/20/22 19:25 95 H 15 193/85 H 07/20/22 17:25 89 18 232/125 H 07/20/22 17:25 36.4 C L 93 H 16 232/125 H Pulse Ox O2 Del Method 07/20/22 21:47 99 Room Air 07/20/22 21:11 99 07/20/22 20:35 98 Room Air 07/20/22 19:25 100 Room Air 07/20/22 17:25 100 07/20/22 17:25 100 Room Air Laboratory Results Laboratory Results WBC 15.15 K/ul (4.8-10.8) H 07/20/22 18:43 RBC 4.12 M/uL (4.70-6.10) L 07/20/22 18:43 Hgb 13.4 g/dl (14.0-18.0) L 07/20/22 18:43 Hct 39.2 % (42.0-52.0) L 07/20/22 18:43 MCV 95.1 fL (80.0-100.0) 07/20/22 18:43 MCH 32.5 pg (25.0-34.0) 07/20/22 18:43 MCHC 34.2 g/dL (32.0-36.0) 07/20/22 18:43 RDW Std Deviation 43.8 fL (36.4-46.3) 07/20/22 18:43 RDW Coeff of Kami 12.6 % (11.5-14.5) 07/20/22 18:43 Plt Count 322 K/uL (130-400) 07/20/22 18:43 MPV 9.9 fL (9.4-12.4) 07/20/22 18:43 Immature Gran % (Auto) 0.6 % 07/20/22 18:43 Neut % (Auto) 87.0 % 07/20/22 18:43 Lymph % (Auto) 6.8 % 07/20/22 18:43 Boyd % (Auto) 4.9 % 07/20/22 18:43 Eos % (Auto) 0.2 % 07/20/22 18:43 Baso % (Auto) 0.5 % 07/20/22 18:43 Neut # (Auto) 13.19 K/uL (1.40-6.50) H 07/20/22 18:43 Lymph # (Auto) 1.03 K/uL (1.2-3.4) L 07/20/22 18:43 Boyd # (Auto) 0.74 K/uL (0.11-0.59) H 07/20/22 18:43 Eos # (Auto) 0.03 K/uL (0-0.50) 07/20/22 18:43 Baso # (Auto) 0.07 K/uL (0-0.2) 07/20/22 18:43 Immature Gran # (Auto) 0.09 K/uL (0.01-0.20) 07/20/22 18:43 ABG pH 7.56 (7.35-7.45) H* 07/20/22 20:16 ABG pCO2 18 mmHg (35-46) L 07/20/22 20:16 ABG pO2 133 mmHg (80-95) H 07/20/22 20:16 ABG HCO3 16 mmol/L (19-24) L 07/20/22 20:16 ABG O2 Saturation 99.9 % (90-95) H 07/20/22 20:16 ABG Base Excess -3.5 mEq/L (-9-1.8) 07/20/22 20:16 Eder Test Pos (Pos) 07/20/22 20:16 Oxygen Given room air 07/20/22 20:16 Sodium 136 mmol/L (136-145) 07/20/22 18:43 Potassium 4.0 mmol/L (3.5-5.1) 07/20/22 20:11 Chloride 92 mmol/L (98-107) L 07/20/22 18:43 Carbon Dioxide 22 mmol/L (21-32) 07/20/22 18:43 Anion Gap 22 (3-11) H 07/20/22 18:43 BUN 47 mg/dl (6-23) H 07/20/22 18:43 Creatinine 9.23 mg/dl (0.6-1.4) H* 07/20/22 18:43 Est Cr Clr Drug Dosing 9.3 ml/min 07/20/22 18:43 Est GFR ( Amer) 6.8 ml/min 07/20/22 18:43 Est GFR (Non-Af Amer) 5.9 ml/min 07/20/22 18:43 BUN/Creatinine Ratio 5.1 (10-20) L 07/20/22 18:43 Glucose 285 mg/dl (70-99(Fasting)) H 07/20/22 18:43 POC Glucose 354 mg/dl (70-99) H* 07/20/22 21:37 Calcium 10.2 mg/dl (8.5-10.1) H 07/20/22 18:43 Phosphorus 1.9 mg/dl (2.5-4.9) L 07/20/22 18:43 Magnesium 2.5 mg/dl (1.7-2.4) H 07/20/22 18:43 Total Bilirubin 1.1 mg/dl (0.2-1.0) H 07/20/22 18:43 AST 10 U/L (13-39) L 07/20/22 20:11 ALT 16 U/L (7-52) 07/20/22 18:43 Alkaline Phosphatase 154 U/L (34-104) H 07/20/22 18:43 Troponin I High Sens 12.0 pg/ml (0-20) 07/20/22 18:43 Total Protein 7.8 gm/dl (6.0-8.3) 07/20/22 18:43 Albumin 4.7 gm/dl (3.4-5.0) 07/20/22 18:43 Globulin 3.1 gm/dl (2.5-4.0) 07/20/22 18:43 Albumin/Globulin Ratio 1.5 (0.9-2) 07/20/22 18:43 Procalcitonin Cancelled 07/20/22 18:43 Adenovirus (PCR) Not Detected (NotDetected) 07/20/22 18:46 B. pertussis DNA (PCR) Not Detected (NotDetected) 07/20/22 18:46 B.parapertussis DNA PCR Not Detected (NotDetected) 07/20/22 18:46 C. pneumoniae DNA (PCR) Not Detected (NotDetected) 07/20/22 18:46 Coronavirus OC43 (PCR) Not Detected (NotDetected) 07/20/22 18:46 Coronavirus HKU1 (PCR) Not Detected (NotDetected) 07/20/22 18:46 Coronavirus 229E (PCR) Not Detected (NotDetected) 07/20/22 18:46 SARS-CoV-2 (PCR) Not Detected (NotDetected) 07/20/22 18:46 Coronavirus NL63 (PCR) Not Detected (NotDetected) 07/20/22 18:46 Human Metapneumovir PCR Not Detected (NotDetected) 07/20/22 18:46 Influenza Type A (PCR) Not Detected (NotDetected) 07/20/22 18:46 Influenza Type B (PCR) Not Detected (NotDetected) 07/20/22 18:46 M. pneumoniae (PCR) Not Detected (NotDetected) 07/20/22 18:46 Parainfluenza 1 (PCR) Not Detected (NotDetected) 07/20/22 18:46 Parainfluenza 2 (PCR) Not Detected (NotDetected) 07/20/22 18:46 Parainfluenza 3 (PCR) Not Detected (NotDetected) 07/20/22 18:46 Parainfluenza 4 (PCR) Not Detected (NotDetected) 07/20/22 18:46 RSV (PCR) Not Detected (NotDetected) 07/20/22 18:46 Entero/Rhino (PCR) Not Detected (NotDetected) 07/20/22 18:46 Impressions Chest X-Ray 07/20/22 18:19 XR chest 1V portable CLINICAL HISTORY: hypertension; nausea and vomiting COMPARISON STUDY: Chest radiograph February 27, 2022. Chest CT July 18, 2021. FINDINGS: Lung volumes are normal. Lungs are clear. There is no pneumothorax or pleural effusion. Cardiac size is normal. Mediastinal contours are normal. There is no evidence for pulmonary edema. IMPRESSION: No acute cardiopulmonary findings. ACT 112: Negative or not required by law. Electronically signed by: Gabino Cool M.D. 07/20/2022 7:[address] head noncontrastPer stat read: Unremarkable noncontrast head CT ECG Additional Comments: EKG per my interpretationpoor study. Shows sinus rhythm at 86 bpm, normal axis, first-degree AV block with TN = 214, QRS = 94, QTc prolonged at 495. PG Care Time/CCT Total # of Minutes Spent Total Time Spent with Patient: Total time spent is greater than 50% in coordination of care (as documented) at patient's floor/unit and/or counseling patient: Coding Level of Care Code 08113 INT INP/OBS CARE 3/75MIN Diagnoses Nausea vomiting and diarrhea R11.2; R19.7 Hypertensive urgency I16.0 Hyperglycemia R73.9 ESRD (end stage renal disease) N18.6 GERD (gastroesophageal reflux disease) K21.9 Depression F33.9 Depression Type: major depressive disorder Major depression recurrence: recurrent Active/Remission status: remission status unspecified (1) Depression Depression Type: major depressive disorder Major depression recurrence: recurrent Active/Remission status: remission status unspecified Qualified Code(s): F33.9 - Major depressive disorder, recurrent, unspecified
[2022-07-20] MEDS ORDERED: PROCHLORPERAZINE 2 ML IV ONE (22:32)
[2022-07-20] MEDS ORDERED: diphenhydrAMINE 50 MG/ML VIAL IV STA (22:32)
[2022-07-20] MEDS ORDERED: PANTOprazole 40 MG in SYRINGE 0 ML IV STA (22:40)
[2022-07-21] MEDS ORDERED: SODIUM CHLORIDE 0.9% 1000ML 1,000 ML IV SCH (00:03)
[2022-07-21] MEDS ORDERED: MELATONIN 3 MG TAB PO PRN (00:03)
[2022-07-21] MEDS ORDERED: ONDANSETRON INJ 2 MG/ML 2 ML VIAL IV PRN (00:03)
[2022-07-21] MEDS ORDERED: PROCHLORPERAZINE 5 MG in SYRINGE 4 ML IV PRN (00:03)
[2022-07-21] MEDS ORDERED: hydrALAZINE HCL 20 MG/ML VIAL IV PRN (00:03)
[2022-07-21] MEDS ORDERED: LORazepam 2 MG/1 ML VIAL IV PRN (00:03)
[2022-07-21] MEDS ORDERED: ACETAMINOPHEN 1,000 MG/100 ML VIAL IV PRN (00:03)
[2022-07-21] MEDS: INSULIN ASPART PER UNIT SC SCH ×7 (01:02→22:54)
[2022-07-21 01:39] LABS: BUN Creatinine Ratio 5.6 (10-20); Calcium 8.4 mg/dl (8.5-10.1); Creatinine Clr Calc Pharmacy 8.8 ml/min; Est GFR (African American) 6.7 ml/min; Est GFR (Non-African American) 5.8 ml/min; Potassium 3.4 mmol/L (3.5-5.1)
[2022-07-21] MEDS ORDERED: PIPERACILLIN/TAZOBACTAM 3.375 GM in DEXTROSE 5% 100 ML IV ONE (02:00)
[2022-07-21] MEDS ORDERED: PHARMACY GLYCEMIC MGMT CONSULT PRN (02:03)
[2022-07-21] MEDS ORDERED: DKA GOAL RANGE 150-250 mg/dl ONE (02:05)
[2022-07-21] MEDS ORDERED: SODIUM CHLOR 0.45% + 20MEQ KCL 20 MEQ/1,000 ML BAG IV SCH (02:15)
[2022-07-21] MEDS ORDERED: PENDING 1/2NSS+20mEq KCL IVF SCH (02:15)
[2022-07-21] MEDS ORDERED: LACTATED RINGER'S 500 ML IV ONE (02:32)
[2022-07-21 02:55] LABS: Magnesium 2.2 mg/dl (1.7-2.4); Phosphorus 2.8 mg/dl (2.5-4.9)
[2022-07-21] MEDS ORDERED: PENDING D5 1/2NS+20mEq KCL IVF SCH (04:00)
[2022-07-21] MEDS ORDERED: D5W AND 1/2NSS + 20MEQ KCL 20 MEQ/1,000 ML BAG IV SCH (04:45)
--- NOTE | 2022-07-21 06:49 | CT Scan Report ---
CT head/brain wo con CLINICAL HISTORY: 51 years-old Male with hypertensive urgency. Acute headache with hypertension TECHNIQUE: Multiple axial CT images of the head were obtained without contrast. A dose lowering tech nique was utilized adhering to the principles of ALARA. CT DOSE: 691.05 mGy.cm COMPARISON: 06/16/2020 FINDINGS: No acute intracranial hemorrhage, midline shift, intracranial mass, hydrocephalus, territorial ischem ia or abnormal extra-axial collection. The calvarium is intact. Prior bilateral lens repair. The paranasal sinuses, mastoid air cells, and m iddle ear cavities are clear. IMPRESSION: No acute intracranial abnormality. ACT 112: Negative or not required by law. The above report was generated using voice recognition software. It may contain grammatical, syntax o r spelling errors. Electronically signed by: Justus Martinez M.D. 07/21/2022 6:47 AM
[2022-07-21 07:13] LABS: Hematocrit (blood only) 34.5 % (42.0-52.0); Hemoglobin 11.6 g/dl (14.0-18.0); Mean Corpuscular Hemoglobin 32.6 pg (25.0-34.0); Mean Corpuscular Hgb Conc 33.6 g/dL (32.0-36.0); Mean Corpuscular Volume 96.9 fL (80.0-100.0); Mean Platelet Volume 9.2 fL (9.4-12.4); Platelet Count 248 K/uL (130-400); RDW Coefficient of Variation 13.2 % (11.5-14.5); RDW Standard Deviation 46.5 fL (36.4-46.3); Red Blood Count 3.56 M/uL (4.70-6.10); White Blood Count 14.09 K/ul (4.8-10.8)
[2022-07-21 07:27] LABS: Calcium 8.7 mg/dl (8.5-10.1); Creatinine Clr Calc Pharmacy 8.3 ml/min; Est GFR (African American) 6.3 ml/min; Est GFR (Non-African American) 5.4 ml/min; Potassium 4.1 mmol/L (3.5-5.1)
[2022-07-21 07:45] LABS: Bilirubin Direct 0.2 mg/dl (0-0.2); Bilirubin,Total 0.7 mg/dl (0.2-1.0); Magnesium 2.3 mg/dl (1.7-2.4); Phosphorus 2.5 mg/dl (2.5-4.9); Total Protein 6.4 gm/dl (6.0-8.3)
[2022-07-21] MEDS ORDERED: LANTUS PER UNIT CHARGE SQ ONE ×3 (07:45→21:00)
--- NOTE | 2022-07-21 08:05 | CT Scan Report ---
CT abd pelvis wo con CLINICAL HISTORY: elevated lactate TECHNIQUE: Helical axial images of the abdomen and pelvis were obtained. Automated dose lowering tech niques and/or adjustment according to patient size were utilized for this exam. This exam was perfor med without intravenous contrast. CT DOSE: 298.11 mGy.cm COMPARISON: Comparison is made to CT abdomen pelvis 02/27/2022 FINDINGS: Lower chest: No acute abnormality. Liver: Unremarkable. No focal lesions are seen. Gallbladder and biliary tree: Cholelithiasis is seen without evidence of cholecystitis. No intra- or extrahepatic biliary ductal dilation. Pancreas: Unremarkable, no focal lesions. Spleen: Unremarkable. Adrenals: Unremarkable. Kidneys and ureters: There is an obstructive stone in the right collecting system 5 mm in diameter. Bladder: Diffuse homogeneous wall thickening is seen. This may be due to underdistention or more like ly chronic outlet obstruction. Reproductive organs: Unremarkable. Bowel: Unremarkable. Lymph nodes Retroperitoneal: Unremarkable. Pelvic: Unremarkable. Mesenteric: Unremarkable. Peritoneum: Normal. Vessels: Atherosclerotic calcifications are seen. Abdominal wall: Unremarkable. Bones: Degenerative changes are seen in the lumbar spine with multilevel loss of height at T11, T12, and L5, similar to prior exam. Right femoral medullary per is noted. IMPRESSION: 1. Right collecting system renal stone is seen without evidence of jahaira hydronephrosis. This appear s similar to prior exam. 2. Cholelithiasis without cholecystitis. 3. Prostatomegaly with chronic bladder outlet obstruction. ACT 112: Negative or not required by law. Electronically signed by: Maninder Cohen M.D. 07/21/2022 8:02 AM
[2022-07-21] MEDS ORDERED: SODIUM CHLORIDE 0.9% 1000ML 1,000 ML IV PRN (08:37)
[2022-07-21] MEDS ORDERED: HEPARIN SOD (PORCINE) 1000 UNIT/ML IV ONE (08:37)
--- NOTE | 2022-07-21 08:43 | Electrocardiogram Report ---
Test Reason : Blood Pressure : / mmHG Vent. Rate : 086 BPM Atrial Rate : 086 BPM P-R Int : 214 ms QRS Dur : 094 ms QT Int : 414 ms P-R-T Axes : 077 016 069 degrees QTc Int : 495 ms Poor data quality, interpretation may be adversely affected Sinus rhythm with sinus arrhythmia with 1st degree A-V block Biatrial enlargement Prolonged QT Abnormal ECG When compared with ECG of 02-MAR-2022 05:15, No significant change Confirmed by Travon Ayala ([id number]) on 07/21/2022 8:42:55 AM Referred By: REFERRED SELF Confirmed By:Travon Ayala
[2022-07-21] MEDS: PANTOprazole 40 MG in SYRINGE 0 ML IV SCH ×2 (08:54→20:04)
[2022-07-21] MEDS: PIPERACILLIN/TAZOBACTAM 3.375 GM in DEXTROSE 5% 100 ML IV SCH ×2 (08:54→21:22)
--- NOTE | 2022-07-21 09:17 | Pharmacy Report ---
Pharmacy Glycemic Short Note 2 - Date of Service July 21, 2022 - Glycemic Short BSG Results (Last 24 hours): 07/20/22 07/20/22 07/20/22 18:43 19:22 21:37 Glucose 285 H POC Glucose 308 H* 354 H* 07/20/22 07/20/22 07/21/22 23:56 23:57 00:35 Glucose 412 H* POC Glucose 467 H* 451 H* 07/21/22 07/21/22 07/21/22 00:36 01:44 02:31 Glucose POC Glucose 396 H* 296 H 273 H 07/21/22 07/21/22 07/21/22 03:26 04:47 05:05 Glucose POC Glucose 212 H 149 H 127 H 07/21/22 07/21/22 07/21/22 05:21 05:38 06:04 Glucose POC Glucose 120 H 116 H 119 H 07/21/22 07/21/22 07/21/22 06:52 06:58 07:44 Glucose 121 H POC Glucose 118 H 116 H OUTPATIENT ANTIDIABETIC REGIMEN: * Lantus 16 units SC qAM * Novolog SSI (CF of 30 for BSG greater than 140 mg/dL, insulin to carbohydrate ratio of 12, and MDD of 40) * Patient's A1c = 9.8% (02/27/22) * However, this result is likely somewhat unreliable in ESRD patients d/t interactions between the A1c analyzing technique and high levels of urea in ESRD, reduced RBC life span, iron deficiency anemia, and EPO administration. HbA1c > 7.5% in ESRD patient may overestimate the extent of hyperglycemia in ESRD patients. ASSESSMENT: * GERBER is a 51 year old male, well known to pharmacy glycemic service * Patient has history of labile/difficult to control BSGs w/ episodes of both hypo/hyperglycemia while inpatient * Patient presented on 07/20/22 with chief complaint of persistent nausea/vomiting * Patient subsequently found to have hypertensive urgency (260/56) and hyperglycemia with anion gap * Pertinent PMH includes ESRD (HD MWF), CAD, HTN, hx of intractable nausea/vomiting, and T1DM * Insulin infusion initiated at time of presentation, which did resolve hyperglycemia and anion gap * Dextrose-containing fluids and insulin infusion have now been discontinued, will manage with SC basal/bolus * HD today PLAN FOR INPATIENT GLYCEMIC CONTROL: * Basal insulin * Lantus 8 units SQ X 1 this morning * Lantus 0-4 units SC HS * Reassess in AM * Bolus insulin * NovoLog per scale ACHS or Q6hrs while NPO * Goal Range: Low 110 mg/dL - High 140 mg/dL * Correction Factor: 40 mg/dL/unit * Nutritional / Prandial insulin per carb ratio of 1 unit per 12 grams CHO consumed
[2022-07-21] MEDS ORDERED: Nursing to Pharmacy Communication SCH (09:45)
[2022-07-21] MEDS: amLODIPine BESYLATE 5 MG TAB PO SCH (12:30)
[2022-07-21] MEDS: LOSARTAN POTASSIUM 50 MG TAB PO SCH (12:30)
[2022-07-21] MEDS: carvediloL 25 MG TAB PO SCH ×2 (12:30→20:04)
[2022-07-21] MEDS: ATORVASTATIN 10 MG TAB PO SCH (12:30)
[2022-07-21] MEDS: buPROPion HCl 100 MG TABLET PO SCH (12:30)
[2022-07-21] MEDS: SERTRALINE HCL 100 MG TABLET PO SCH (12:31)
[2022-07-21] MEDS: SERTRALINE HCL 50 MG TABLET PO SCH (12:31)
--- NOTE | 2022-07-21 12:40 | Nephrology Consultation ---
Date of Consultation July 21, 2022 Assessment & Plan (1) ESRD (end stage renal disease): on MWF HD via [facility] >> for HD today > tolerated 2.5 L; AVF w/o issues currently; anemia needs no intervention at this time -renal diet resumed this am >> added 1.5L fluid limit (generous limit given recent GI issues) -next HD on 07/23 or as clinical needs dictate Pt finished HD at 1300 and had bmp at 1444 > drawn too soon after HD to be accurate/not reliable; need to wait at least 2 hrs and 4 better after HD before checking labs; pls do not replete based on these labs (2) Hypertension: hx of labile hypertension at baseline d/t autonomic dysfunction from DM >for HD today >> SBP have been better controlled today History of Present Illness Reason for Consultation: ESRD on dialysis Requesting Physician: Dr Mckeon Attending Physician: Sami Mckeon History of Present Illness 51 y/o M whom I'm asked to see for dialysis needs was admitted last evening with 48 hrs of intractable N/V and one day of diarrhea and HTN urgency. PMH includes DM I, ESRD on in center hemodialysis, gastroparesis, pleural effusions (resolved), HTN, NICM, (ef 40-45%) pulmonary embolism (previously on warfarin dc'd 05/28). Also hx of R hip fracture Feb 2019 and hx of lumbar s pine compression fracture. Admitted here Feb 2022 for DKA. His emesis and diarrhea have calmed considerably sinc last evening. I arranged for him to have HD today. He tolerated 2.5L fluid removal. No n/v/d/c or abd pain currently. not sob; no chest pain or acute vision changes. no edema or rash. Allergies Allergy/AdvReac Type Severity Reaction Status Date / Time shellfish derived Allergy Severe anaphylaxis Verified 07/20/22 19:24 codeine Allergy Intermediate Hives Verified 07/20/22 19:24 promethazine Allergy Intermediate itchy/hives Verified 07/20/22 19:24 Home Medications Medication Instructions Recorded Confirmed Type melatonin 3 mg tablet 3 mg PO HS PRN Sleep 09/05/20 07/20/22 History acetaminophen 325 mg capsule 650 mg PO Q4H PRN Pain (Scale 09/28/20 07/20/22 History Score 1-3) carvedilol 25 mg tablet 50 mg PO BID 10/01/20 07/20/22 History ondansetron HCl 4 mg tablet 8 mg PO Q4 PRN nausea or vomiting 03/19/21 07/20/22 History lorazepam 0.5 mg tablet 0.5 mg PO Q6H PRN Anxiety #60 tabs 03/27/21 07/20/22 Rx prochlorperazine maleate 5 mg 5 mg PO BID PRN Nausea 06/03/21 07/20/22 History tablet (Compazine) insulin aspart U-100 100 unit/mL 5 unit (0.05 mL) subcut TIDM PRN 10/24/21 07/20/22 Rx (3 mL) subcutaneous pen (Novolog sliding scale #15 mL FlexPen U-100 Insulin aspart) cholecalciferol (vitamin D3) 50 50 mcg PO QAM 10/25/21 07/20/22 History mcg (2,000 unit) capsule (Vitamin D3) pen needle, diabetic 32 gauge x #500 ea 12/17/21 04/01/22 Rx 32" (BD Ultra-Fine Annalise Pen Needle) mirtazapine 7.5 mg tablet 7.5 mg PO HS 12/29/21 07/20/22 History sertraline 100 mg tablet 100 mg PO QAM 12/29/21 07/20/22 History sertraline 25 mg tablet 25 mg PO QAM 12/29/21 07/20/22 History sucroferric oxyhydroxide 500 mg 1,000 mg PO TIDM 12/29/21 07/20/22 History chewable tablet (Velphoro) atorvastatin 10 mg tablet 10 mg PO QAM #90 tabs 02/03/22 07/20/22 Rx amlodipine 10 mg tablet 10 mg PO QAM 03/01/22 07/20/22 History blood sugar diagnostic (Contour #100 ea 03/02/22 04/01/22 Rx Next Test Strips) losartan 100 mg tablet 100 mg PO QAM #90 tabs 06/05/22 07/20/22 Rx bupropion HCl 100 mg tablet 100 mg PO QAM 07/20/22 07/20/22 History insulin glargine 100 unit/mL (3 16 unit subcut QAM 07/20/22 07/20/22 History mL) subcutaneous pen (Basaglar KwikPen U-100 Insulin) pantoprazole 40 mg tablet,delayed 40 mg PO BIDM 07/20/22 07/20/22 History release Patient History Medical History Anemia of chronic disease Anxiety AV fistula left upper arm CAD (coronary artery disease) mild, non-obstructive CAD per 10/2018 cardiac cath> [facility] Cardiac murmur follows with Dr. Powell Cellulitis of chest wall Chronic pleural effusion PleurX catheter placed 01/24/21--removed 07/2021 Cyclical vomiting syndrome Depression Diabetes Diabetic retinopathy Dialysis patient DKA (diabetic ketoacidosis) Empyema lung Esophagitis ESRD (end stage renal disease) M,W,F (Follows with Dr. Lor Guadalupe; [facility]) GERD (gastroesophageal reflux disease) History of COVID-19 07/30, not hospitalized, congestion and headache-resolved History of pulmonary embolism 11/2020; unk etiology; was on warfarin (taken off 05/2021) Hypertension Lumbar radiculopathy Palliative care encounter Pericardial effusion Plantar wart, right foot Pulmonary embolism Recurrent pleural effusion on left Surgical History H/O shoulder surgery RIGHT History of appendectomy History of cardiac cath 10/2018= no stents, no obstructive disease (at [facility], [place]) History of cataract surgery History of esophagogastroduodenoscopy (EGD) (~03/08/20) History of hip surgery left HIP ARTHROSCOPY History of lithotripsy History of open reduction and internal fixation (ORIF) procedure right hip Nausea and vomiting after administration of anesthetic agent S/P arteriovenous (AV) fistula creation Family History Grandfather Myocardial infarction Grandfather (Maternal) Family history of diabetes mellitus Uncle Myocardial infarction Father Hypertension Mother Kidney stone Other No family history of adverse response to anesthesia Denies family history of Colon cancer Ovarian cancer Prostate cancer Breast cancer Social History Smoking Status: Never smoker Tobacco Type: Cigarettes Second Hand Exposure: No; Hx Alcohol Use: No Hx Substance Use: No Preferred Language: Sinhala Communication Ability: Effective Visual Impairment: No Limitations Hearing Ability: Normal Bi Developer Required: No Beliefs That Will Affect Care: None marital status: Current Living Situation: Parent Current Living Situation Comment: lives with parents. current occupational status: disabled How many Children do You have: 2 Feels Safe at Home: Yes Childhood Exposure to Second-Hand Smoke: Yes Dental Care, Regularly: No Physical Activity Frequency: 1-2 Times per Week Seatbelt Use: always Sunscreen Use: No Assistive Devices: Denture - Upper, Denture - Lower and Glasses Review of Systems Review of Systems: All systems reviewed & are unremarkable except as noted in HPI & below Physical Exam Constitutional: well developed and well nourished; no acute distress Eyes: EOM intact bilaterally ENMT: Ears: no external ear abnormality Nose: no external nose abnormality Mouth: + dry oral mucous membranes Neck: no nuchal rigidity Respiratory: normal respiratory effort Auscultation: + diminished lung sounds Cardiovascular: Rate/Rhythm: regular rate and regular rhythm Heart Sounds: + murmur Extremities: + AV fistula (+t/b); no edema Gastrointestinal (Abdomen): Inspection/Auscultation: normal bowel sounds Percussion/Palpation: abdomen soft; abdomen nontender Musculoskeletal: Extremities: strength 5/5 throughout Skin: no rashes, warm and dry Neurologic: spicer, fluent speech, no tremor Psychiatric: Orientation: alert and oriented x 3 Results & Data ([facility]) Vital Signs (Past 12 Hours) Vital Signs Temp Pulse Pulse Pulse Pulse Resp BP 07/21/22 10:30 83 150/62 H 07/21/22 10:00 88 144/59 H 07/21/22 09:30 84 143/74 H 07/21/22 09:17 36.9 C 89 07/21/22 08:00 73 07/21/22 07:30 36.9 C 86 16 07/21/22 03:27 36.8 C 91 H 18 BP Pulse Ox O2 Del Method 07/21/22 10:30 07/21/22 10:00 07/21/22 09:30 07/21/22 09:17 07/21/22 08:00 07/21/22 07:30 123/56 L 96 Room Air 07/21/22 03:27 150/65 H 98 Room Air Laboratory Results 07/21/22 06:52 07/21/22 06:[address] a/p today no con 1. Right collecting system renal stone is seen without evidence of jahaira hydronephrosis. This appears similar to prior exam. 2. Cholelithiasis without cholecystitis. 3. Prostatomegaly with chronic bladder outlet obstruction. CXR > no acute CP findings Head CT > no acute IC findings
[2022-07-21 15:29] LABS: Magnesium 1.9 mg/dl (1.7-2.4)
[2022-07-21 15:31] LABS: BUN Creatinine Ratio 3.3 (10-20); Calcium 8.3 mg/dl (8.5-10.1); Est GFR (Non-African American) 16.4 ml/min; Potassium 3.2 mmol/L (3.5-5.1)
[2022-07-21] MEDS: HEPARIN SOD (PORCINE) 1000 UNIT/ML IV SCH ×2 (16:13→16:14)
--- NOTE | 2022-07-21 18:20 | Hospitalist Progress Note ---
Date of Service July 21, 2022 Assessment & Plan (1) Nausea vomiting and diarrhea: Plan: 51-year-old male with history of end-stage renal disease, hypertension, diabetes presenting with 48 hours of persistent intractable nausea with multiple episodes of vomiting as well as 1 day of watery diarrhea. Patient has been given multiple doses of Zofran with minimal relief. Mild leukocytosis with WBC = 15, neutrophil predominance. Patient with high anion gap of 22. Admit to PCU Check stool PCR Check BMP every 4 hours to monitor anion gap Check lactate with next BMP Zofran 4 mg IV every 6 hours as needed nausea Compazine 5 mg IV every 6 hours as needed for nausea Ativan 0.5 mg IV every 6 hours as needed for nausea Of note, patient with prolonged QT interval noted on EKG. He is also on several psychiatric agents that may have effect on QT as well. Feeling improved on 07/21 Insulin drip closed, Anion gap improved. will monitor. (2) Hypertensive urgency: Plan: Patient hypertensive on arrival at 260/56. He was administered hydralazine 10 mg IV x2 doses in the ER with appropriate response. Presently blood pressure is 153/73. Most likely multifactorial. Patient has not had his medications since yesterday. No symptoms of headache, visual change, focal deficit, chest pain or shortness of breath. No evidence of end-organ damage. Control of nausea as above We will order oral medicationscontinue amlodipine 10 mg p.o. every morning, carvedilol 50 mg p.o. twice daily, losartan 100 mg p.o. every morning We will provide hydralazine 10 mg IV q 4 hours as needed for blood pressure greater than 180/110 while patient is p.o. intolerant (3) Hyperglycemia: Plan: Patient with hyperglycemia. Blood sugar on arrival = 354. Also with high gap to metabolic acidosis with gap = 22. Patient reports he did take his insulin yesterday. He is not acidemic on ABG. We will continue insulin drip Fingerstick every hour BMP every 4 hours _Likely Diabetic ketoacidosis, improved and resolved. (4) ESRD (end stage renal disease): Plan: Patient with end-stage renal disease on hemodialysis q. Thursday and Thursday. His last full dialysis was on Thursday. He is an uric. Potassium is acceptable presently at 4. His serum bicarbonate is acceptable at 22. High anion gap of 22 which we will be monitoring with frequent labs Nephrology consultation appreciated We will hold Velphoro as patient has low phosphorus of 1.9 (5) GERD (gastroesophageal reflux disease): Plan: Chronic. Patient is on Protonix 40 mg p.o. twice daily Protonix 40 mg IV twice daily while patient is p.o. intolerant Monitor for evidence of hematemesis or coffee-ground emesis as patient notes dark vomitus, uncertain if it was blood Monitor CBC (6) Depression: Plan: Patient with anxiety and depression. Continue bupropion 10 mg p.o. every morning Continue sertraline 125 mg p.o. daily Caution with QT interval. EKG ordered for the morning F/E/N - NSS at 100mL/hr x 1 liter - has already received 2L in ER, is anuric but appears dry on exam. K is WNL. Mg is elevated at 2.5 and PO4 is low at 1.9. Hold PO4-binder. Repeat labs q 4 hrs. Clear liquids as tolerated Ppx - Protonix Code - Full Dispo - Admit to PCU Admission and Anticipated Discharge Date Admission Date: July 20, 2022 Subjective Patient reports feeling very comfortable. His nausea has improved, and he tolerated his clear diet. Patient is asking for diet to be advanced further. Review of Systems Review of Systems: All systems reviewed & are unremarkable except as noted in HPI & below Physical Exam Physical Exam: General: He is awake alert and oriented. Able to answer questions appropriately and follow commands Skin: warm, dry, intact, no rashes or lesions HEENT: NC/AT, PERRL, EOMI, anicteric sclera, conjunctiva without injection, external ear normal to inspection and nontender, nares patent, dry mucus membranes, dentition intact, no oropharyngeal lesions, neck supple, trachea midline, no LAD, no thyromegaly, no JVD Heart: +S1/S2, regular, no m/r/g Lungs: equal air entry bilaterally, no rales/rhonchi/wheezes Abd: +BS, soft, NT/ND, no masses/organomegaly/ascites Ext: warm, 2+ pulses in UE/LE bilaterally, no clubbing/cyanosis or edema, AV fistula left upper extremity with palpable thrill Neuro: nonfocal, patient AA&O x 4, speech intact, no facial droop, moving all extremities on command with equal strength 5/5 Results & Data Results & Data ([facility]) Vital Signs (Past 12 Hours) Vital Signs Temp Pulse Pulse Pulse Resp BP BP 07/21/22 15:52 37.0 C 82 18 147/64 H 07/21/22 15:00 81 07/21/22 13:00 36.9 C 84 153/68 H 07/21/22 12:30 82 136/59 L 07/21/22 12:00 83 151/53 H 07/21/22 11:30 82 134/63 07/21/22 11:00 82 146/65 H 07/21/22 10:30 83 150/62 H 07/21/22 10:00 88 144/59 H 07/21/22 09:30 84 143/74 H 07/21/22 09:17 36.9 C 89 07/21/22 08:00 73 07/21/22 07:30 36.9 C 86 16 123/56 L Pulse Ox O2 Del Method 07/21/22 15:52 97 Room Air 07/21/22 15:00 07/21/22 13:00 07/21/22 12:30 07/21/22 12:00 07/21/22 11:30 07/21/22 11:00 07/21/22 10:30 07/21/22 10:00 07/21/22 09:30 07/21/22 09:17 07/21/22 08:00 07/21/22 07:30 96 Room Air PG Care Time/CCT Total # of Minutes Spent Total Time Spent with Patient: Total time spent is greater than 50% in coordination of care (as documented) at patient's floor/unit and/or counseling patient: Coding Level of Care Code 79307 SUB INP/OBS CARE 2/35MIN Diagnoses Nausea vomiting and diarrhea R11.2; R19.7 Hypertensive urgency I16.0 Hyperglycemia R73.9 ESRD (end stage renal disease) N18.6 GERD (gastroesophageal reflux disease) K21.9 Depression F33.9 Depression Type: major depressive disorder Major depression recurrence: recurrent Active/Remission status: remission status unspecified (1) Depression Depression Type: major depressive disorder Major depression recurrence: recurrent Active/Remission status: remission status unspecified Qualified Code(s): F33.9 - Major depressive disorder, recurrent, unspecified
[2022-07-21 19:21] LABS: BUN Creatinine Ratio 3.6 (10-20); Calcium 8.3 mg/dl (8.5-10.1); Creatinine Clr Calc Pharmacy 15.7 ml/min; Est GFR (African American) 13.4 ml/min; Est GFR (Non-African American) 11.6 ml/min; Magnesium 2.1 mg/dl (1.7-2.4); Phosphorus 1.9 mg/dl (2.5-4.9); Potassium 3.1 mmol/L (3.5-5.1)
[2022-07-21] MEDS ORDERED: MIRTAZAPINE TAB 15 MG TAB PO SCH (21:00)
[2022-07-21] MEDS: DICLOFENAC SOD 1% GEL 100 GM TUBE EXT SCH (21:23)
[2022-07-21 22:17] LABS: Adenovirus F 40/41 PCR Not Detected (NotDetected); Astrovirus PCR Not Detected (NotDetected); Campylobacter PCR Not Detected (NotDetected); Cryptosporidium PCR Not Detected (NotDetected); Cyclospora cayetanensis PCR Not Detected (NotDetected); Entamoeba histolytica PCR Not Detected (NotDetected); Enteroaggregative E.coli(EAEC) Not Detected (NotDetected); Enteropathogenic E.coli (EPEC) Not Detected (NotDetected); Enterotoxigenic E.coli (ETEC) Not Detected (NotDetected); Giardia lamblia PCR Not Detected (NotDetected); Norovirus GI/GII PCR Not Detected (NotDetected); Plesiomonas shigelloides PCR Not Detected (NotDetected); Rotavirus A PCR Not Detected (NotDetected); Salmonella PCR Not Detected (NotDetected); Sapovirus PCR Not Detected (NotDetected); Shiga-like Toxin E.coli (STEC) Not Detected (NotDetected); Shigella/Enteroinvasive E.coli Not Detected (NotDetected); Vibrio cholerae PCR Not Detected (NotDetected); Vibrio species PCR Not Detected (NotDetected); Yersinia enterocolitica PCR Not Detected (NotDetected)
[2022-07-21 23:22] LABS: Phosphorus 2.5 mg/dl (2.5-4.9)
[2022-07-22] MEDS: INSULIN ASPART PER UNIT SC SCH ×4 (01:41→17:25)
--- NOTE | 2022-07-22 06:07 | Electrocardiogram Report ---
Test Reason : Blood Pressure : / mmHG Vent. Rate : 087 BPM Atrial Rate : 087 BPM P-R Int : 224 ms QRS Dur : 094 ms QT Int : 384 ms P-R-T Axes : 051 002 069 degrees QTc Int : 462 ms Sinus rhythm with 1st degree A-V block Possible Left atrial enlargement Borderline ECG When compared with ECG of 20-JUL-2022 18:00, QT has shortened Confirmed by Travon Ayala ([id number]) on 07/22/2022 6:07:05 AM Referred By: REFERRED SELF Confirmed By:Travon Ayala
[2022-07-22 06:39] LABS: Hematocrit (blood only) 28.9 % (42.0-52.0); Hemoglobin 9.4 g/dl (14.0-18.0); Mean Corpuscular Hemoglobin 32.6 pg (25.0-34.0); Mean Corpuscular Hgb Conc 32.5 g/dL (32.0-36.0); Mean Corpuscular Volume 100.3 fL (80.0-100.0); Mean Platelet Volume 9.2 fL (9.4-12.4); Platelet Count 233 K/uL (130-400); RDW Coefficient of Variation 13.5 % (11.5-14.5); RDW Standard Deviation 49.9 fL (36.4-46.3); Red Blood Count 2.88 M/uL (4.70-6.10); White Blood Count 10.04 K/ul (4.8-10.8)
[2022-07-22 07:03] LABS: BUN Creatinine Ratio 4.3 (10-20); Calcium 7.8 mg/dl (8.5-10.1); Creatinine Clr Calc Pharmacy 13.2 ml/min; Est GFR (Non-African American) 9.5 ml/min; Potassium 3.3 mmol/L (3.5-5.1)
--- NOTE | 2022-07-22 08:44 | Nephrology Progress Note ---
Date of Service July 22, 2022 Assessment & Plan (1) Hypokalemia: Plan: mild hypokalemia likely related to GI losses > changed for now to regular diet from dialysis diet -monitor K daily (2) ESRD (end stage renal disease): Plan: on MWF HD via [facility] >> on 07/21, tolerated 2.5 L; AVF w/o issues currently; anemia needs no intervention at this time -continue 1.5L fluid limit (generous limit given recent GI issues) -next HD on 07/23 or as clinical needs dictate (3) Hypertension: Plan: hx of labile hypertension at baseline d/t autonomic dysfunction from DM SBP controlled yesterday and actually low today for ? reasons; ? if pt is eating less today Admission and Anticipated Discharge Date Admission Date: July 20, 2022 Subjective seen on am rounds; no c/o of sob; states emesis/N well controlled, no further diarrhea Review of Systems Review of Systems: All systems reviewed & are unremarkable except as noted in Subjective Physical Exam Constitutional: well developed and well nourished; no acute distress Eyes: EOM intact bilaterally ENMT: Ears: no external ear abnormality Nose: no external nose abnormality Mouth: + dry oral mucous membranes Neck: no nuchal rigidity Respiratory: normal respiratory effort Auscultation: + diminished lung sounds Cardiovascular: Rate/Rhythm: regular rate and regular rhythm Heart Sounds: + murmur Extremities: + AV fistula (+t/b); no edema Gastrointestinal (Abdomen): Inspection/Auscultation: normal bowel sounds Percussion/Palpation: abdomen soft; abdomen nontender Musculoskeletal: Extremities: strength 5/5 throughout Skin: no rashes, warm and dry Psychiatric: Orientation: alert and oriented x 3 Results & Data ([facility]) Vital Signs (Past 12 Hours) Vital Signs Temp Pulse Pulse Pulse Resp BP Pulse Ox 07/22/22 07:33 36.4 C L 63 16 122/67 97 07/22/22 03:00 36.6 C 61 16 86/43 L 94 07/21/22 22:09 76 07/21/22 22:50 37.2 C 76 18 108/53 L 97 O2 Del Method 07/22/22 07:33 Room Air 07/22/22 03:00 Room Air 07/21/22 22:09 07/21/22 22:50 Room Air Laboratory Results 07/22/22 06:15 07/22/22 06:15
[2022-07-22] MEDS: ATORVASTATIN 10 MG TAB PO SCH (08:52)
[2022-07-22] MEDS: SERTRALINE HCL 50 MG TABLET PO SCH (08:52)
[2022-07-22] MEDS: LOSARTAN POTASSIUM 50 MG TAB PO SCH (08:53)
[2022-07-22] MEDS: SERTRALINE HCL 100 MG TABLET PO SCH (08:53)
[2022-07-22] MEDS: amLODIPine BESYLATE 5 MG TAB PO SCH (08:53)
[2022-07-22] MEDS: buPROPion HCl 100 MG TABLET PO SCH (08:53)
[2022-07-22] MEDS: carvediloL 25 MG TAB PO SCH (08:53)
[2022-07-22] MEDS: DICLOFENAC SOD 1% GEL 100 GM TUBE EXT SCH ×3 (08:54→17:24)
[2022-07-22] MEDS: PANTOprazole 40 MG in SYRINGE 0 ML IV SCH (08:54)
[2022-07-22] MEDS ORDERED: LANTUS PER UNIT CHARGE SQ SCH (09:00)
[2022-07-22] MEDS: PIPERACILLIN/TAZOBACTAM 3.375 GM in DEXTROSE 5% 100 ML IV SCH (09:04)
[2022-07-22 12:03] LABS: HBSAG NON-REACTIVE (NON-REACTIVE); Hepatitis B Surface Ab, Quant 129 mIU/mL (> OR = 10)
--- NOTE | 2022-07-22 14:22 | Pharmacy Report ---
Pharmacy Glycemic Short Note 2 - Date of Service July 22, 2022 - Glycemic Short BSG Results (Last 24 hours): 07/21/22 07/21/22 07/21/22 14:44 16:03 18:40 Glucose 237 H 210 H POC Glucose 260 H 07/21/22 07/22/22 07/22/22 20:01 01:36 06:15 Glucose 138 H POC Glucose 98 143 H 07/22/22 07/22/22 07:06 11:06 Glucose POC Glucose 141 H 213 H OUTPATIENT ANTIDIABETIC REGIMEN: * Lantus 16 units SC qAM * Novolog SSI (CF of 30 for BSG greater than 140 mg/dL, insulin to carbohydrate ratio of 12, and MDD of 40) * Patient's A1c = 9.8% (02/27/22) * However, this result is likely somewhat unreliable in ESRD patients d/t interactions between the A1c analyzing technique and high levels of urea in ESRD, reduced RBC life span, iron deficiency anemia, and EPO administration. HbA1c > 7.5% in ESRD patient may overestimate the extent of hyperglycemia in ESRD patients. ASSESSMENT: 07/22/22: * BSGs labile yesterday following HD, 100, 260, and 98 mg/dL * Received 14 units (8 units of basal and 6 units of prandial/correctional bolus) * Appetite appears to be improved - will continue current orders with scale basal scale this evening 07/21/22: * GERBER is a 51 year old male, well known to pharmacy glycemic service * Patient has history of labile/difficult to control BSGs w/ episodes of both hypo/hyperglycemia while inpatient * Patient presented on 07/20/22 with chief complaint of persistent nausea/vomiting * Patient subsequently found to have hypertensive urgency (260/56) and hyperglycemia with anion gap * Pertinent PMH includes ESRD (HD MWF), CAD, HTN, hx of intractable nausea/v omiting, and T1DM * Insulin infusion initiated at time of presentation, which did resolve hyperglycemia and anion gap * Dextrose-containing fluids and insulin infusion have now been discontinued, will manage with SC basal/bolus * HD today PLAN FOR INPATIENT GLYCEMIC CONTROL: * Basal insulin * Lantus 8 units SQ X 1 this morning * Lantus 0-4 units SC HS (see EHR) * Bolus insulin * NovoLog per scale ACHS or Q6hrs while NPO * Goal Range: Low 110 mg/dL - High 140 mg/dL * Correction Factor: 40 mg/dL/unit * Nutritional / Prandial insulin per carb ratio of 1 unit per 12 grams CHO consumed
[2022-07-22] MEDS ORDERED: LANTUS PER UNIT CHARGE SQ ONE (21:00)
--- NOTE | 2022-07-23 04:56 | Electrocardiogram Report ---
Test Reason : Blood Pressure : / mmHG Vent. Rate : 062 BPM Atrial Rate : 062 BPM P-R Int : 228 ms QRS Dur : 110 ms QT Int : 464 ms P-R-T Axes : 151 -25 -12 degrees QTc Int : 470 ms Sinus rhythm with 1st degree A-V block Nonspecific T wave abnormality When compared with ECG of 21-JUL-2022 07:36, Nonspecific T wave abnormality, worse in Inferior leads Confirmed by Travon Ayala ([id number]) on 07/23/2022 4:55:55 AM Referred By: REFERRED SELF Confirmed By:Travon Ayala
--- NOTE | 2022-07-24 16:12 | Discharge Summary ---
Date of Service July 22, 2022 Admission HPI Per Admitting Provider Jorge Alberto De Los Santos is a 51-year-old male with history of end-stage renal disease on hemodialysis q. Thursday/Thursday/Thursday, diabetes, coronary artery disease, hypertension presenting with intractable nausea and vomiting as well as diarrhea. Patient reports persistent nausea ongoing for the last 48 hours. He has vomited numerous times. Mostly liquid, some concern for dark blood as well. He has also had watery diarrhea x1 day. Nonbloody/nonmucoid. He has not had any medications or oral intake since yesterday. Patient also with dry cough and some chills. Denies abdominal pain, distention, shortness of breath. Denies fever. Patient is an uric. Last full dialysis treatment was Thursday without difficulty. He denies recent travel or sick contacts. Upon arrival to the ER patient markedly hypertensive at 260/56. Hyperglycemic with BSG = 354. Presently with ongoing nausea. Vomited several times during my encounter. Otherwise no additional complaints. ER course: Hydralazine 10 mg IV x2 doses Zofran 4 mg IV Normal saline x2 L Principal Diagnosis nausea, vomiting, diarrhea likely secondary to DKA Discharge Exam General: He is awake alert and oriented. Able to answer questions appropriately and follow commands Skin: warm, dry, intact, no rashes or lesions HEENT: NC/AT, PERRL, EOMI, anicteric sclera, conjunctiva without injection, external ear normal to inspection and nontender, nares patent, dry mucus membranes, dentition intact, no oropharyngeal lesions, neck supple, trachea midline, no LAD, no thyromegaly, no JVD Heart: +S1/S2, regular, no m/r/g Lungs: equal air entry bilaterally, no rales/rhonchi/wheezes Abd: +BS, soft, NT/ND, no masses/organomegaly/ascites Ext: warm, 2+ pulses in UE/LE bilaterally, no clubbing/cyanosis or edema, AV fistula left upper extremity with palpable thrill Neuro: nonfocal, patient AA&O x 4, speech intact, no facial droop, moving all extremities on command with equal strength 5/5 Discharge Data Allergies Allergy/AdvReac Type Severity Reaction Status Date / Time shellfish derived Allergy Severe anaphylaxis Verified 07/23/22 14:03 codeine Allergy Intermediate Hives Verified 07/23/22 14:03 promethazine Allergy Intermediate itchy/hives Verified 07/23/22 14:03 Consultations 07/20/22 21:32 ED Decision to Admit Stat 07/20/22 22:03 Consult Nephrology Routine Ordered Studies 07/20/22 18:20 CT head/brain wo con Stat 07/21/22 02:30 CT abd pelvis wo con Urgent Hospital Course (1) Nausea vomiting and diarrhea: 51-year-old male with history of end-stage renal disease, hypertension, diabetes presenting with 48 hours of persistent intractable nausea with multiple episodes of vomiting as well as 1 day of watery diarrhea. Patient has been given multiple doses of Zofran with minimal relief. Mild leukocytosis with WBC = 15, neutrophil predominance. Patient with high anion gap of 22. Admit to PCU Check stool PCR Check BMP every 4 hours to monitor anion gap Check lactate with next BMP Zofran 4 mg IV every 6 hours as needed nausea Compazine 5 mg IV every 6 hours as needed for nausea Ativan 0.5 mg IV every 6 hours as needed for nausea Of note, patient with prolonged QT interval noted on EKG. He is also on several psychiatric agents that may have effect on QT as well. Feeling improved on 07/21 Insulin drip closed, Anion gap improved. will monitor. (2) Hypertensive urgency: Patient hypertensive on arrival at 260/56. He was administered hydralazine 10 mg IV x2 doses in the ER with appropriate response. Presently blood pressure is 153/73. Most likely multifactorial. Patient has not had his medications since yesterday. No symptoms of headache, visual change, focal deficit, chest pain or shortness of breath. No evidence of end-organ damage. Control of nausea as above We will order oral medicationscontinue amlodipine 10 mg p.o. every morning, carvedilol 50 mg p.o. twice daily, losartan 100 mg p.o. every morning We will provide hydralazine 10 mg IV q 4 hours as needed for blood pressure greater than 180/110 while patient is p.o. intolerant (3) Hyperglycemia: Patient with hyperglycemia. Blood sugar on arrival = 354. Also with high gap to metabolic acidosis with gap = 22. Patient reports he did take his insulin yesterday. He is not acidemic on ABG. -treated with insulin drip _Likely Diabetic ketoacidosis, improved and resolved. (4) ESRD (end stage renal disease): Patient with end-stage renal disease on hemodialysis q. Thursday and Thursday. His last full dialysis was on Thursday. He is an uric. Potassium is acceptable presently at 4. His serum bicarbonate is acceptable at 22. High anion gap of 22 which we will be monitoring with frequent labs Nephrology consultation appreciated We will hold Velphoro as patient has low phosphorus of 1.9 (5) GERD (gastroesophageal reflux disease): Chronic. Patient is on Protonix 40 mg p.o. twice daily Protonix 40 mg IV twice daily while patient is p.o. intolerant Monitor for evidence of hematemesis or coffee-ground emesis as patient notes dark vomitus, uncertain if it was blood Monitor CBC (6) Depression: Patient with anxiety and depression. Continue bupropion 10 mg p.o. every morning Continue sertraline 125 mg p.o. daily Caution with QT interval. EKG ordered for the morning F/E/N - NSS at 100mL/hr x 1 liter - has already received 2L in ER, is anuric but appears dry on exam. K is WNL. Mg is elevated at 2.5 and PO4 is low at 1.9. Hold PO4-binder. Repeat labs q 4 hrs. Clear liquids as tolerated Ppx - Protonix Code - Full Dispo - Admit to PCU Total Time Total Time Spent Total Time Spent (In Minutes): 32 Discharge Plan Discharge Items Patient Disposition: Home - Self-Care Reason For Visit: HYPERTENSION, HYPERGLYCEMIA, INTRACTABLE N/V Discharge Diagnosis: hypertension, hyperglycemia Activity: Resume your previous activity Non-emergency contact: Primary Care Provider Call non-emergency contact if: you have any medication questions Follow-up/Referrals: Abbi Ames MD [Primary Care Provider] - Diet: Dialysis Renal Addtl Attending Provider Instructions: recommend close followup with PCP Pending Studies at Discharge: No Stand-Alone Forms: My [employer], Smoking Cessation Medications and DC Order Prescriptions: Continued prochlorperazine maleate [Compazine] 5 mg tablet 5 mg PO BID PRN (Reason: Nausea) acetaminophen 325 mg capsule 650 mg PO Q4H PRN (Reason: Pain (Scale Score 1-3)) lorazepam 0.5 mg tablet 0.5 mg PO Q6H PRN (Reason: Anxiety) Qty: 60 0RF (DME) pen needle, diabetic [BD Ultra-Fine Annalise Pen Needle] 32 gauge x 5/32" needle See Rx Instructions .Route Qty: 500 3RF Rx Instructions: Use 5 per day with insulin injections atorvastatin 10 mg tablet 10 mg PO QAM Qty: 90 1RF (DME) Contour Next Test Strips Strip See Rx Instructions .Route Qty: 100 3RF Rx Instructions: check blood sugar at least once a day losartan 100 mg tablet 100 mg PO QAM Qty: 90 3RF carvedilol 25 mg tablet 50 mg PO BID Rx Instructions: TAKE THIS MEDICATION WITH FOOD melatonin 3 mg tablet 3 mg PO HS PRN (Reason: Sleep) insulin aspart U-100 [Novolog FlexPen U-100 Insulin] 100 unit/mL (3 mL) insulin pen 5 unit SUBCUT TIDM PRN (Reason: sliding scale) Qty: 15 5RF Rx Instructions: Use per sliding scale. 1 unit for every 12 grams of carb. Correction Factor 1 unit per 30mg/dL above goal range. MDD 40 units daily. sertraline 100 mg tablet 100 mg PO QAM Rx Instructions: TOTAL DOSE 125 MG--TAKES WITH 25 MG TAB. sertraline 25 mg tablet 25 mg PO QAM Rx Instructions: TOTAL DOSE 125 MG--TAKES WITH 100 MG TAB. mirtazapine 7.5 mg tablet 7.5 mg PO HS Velphoro 500 mg tablet,chewable 1,000 mg PO TIDM amlodipine 10 mg tablet 10 mg PO QAM ondansetron HCl 4 mg tablet 8 mg PO Q4 PRN (Reason: nausea or vomiting) cholecalciferol (vitamin D3) [Vitamin D3] 50 mcg (2,000 unit) capsule 50 mcg PO QAM bupropion HCl 100 mg tablet 100 mg PO QAM pantoprazole 40 mg tablet,delayed release (DR/EC) 40 mg PO BIDM insulin glargine [Basaglar KwikPen U-100 Insulin] 100 unit/mL (3 mL) insulin pen 16 unit SUBCUT QAM Discharge Orders: Discharge Order (Routine); Ordered 07/22/22 Ordered By: Sami Mckeon Admission Data Admit Date/Time: 07/20/22 22:03 Attending Provider: Sami Mckeon Admit Provider: Marielos Cervantes Primary Care Provider: Abbi Ames V. Other Providers: Lor Guadalupe Other Interventions: Discharge Summary Assessment (RN) Last Done: 07/22/22 18:05 Coding Level of Care Code HOSP INP/OBS DISCH >30 MIN Diagnoses Nausea vomiting and diarrhea R11.2; R19.7 Hypertensive urgency I16.0 Hyperglycemia R73.9 ESRD (end stage renal disease) N18.6 GERD (gastroesophageal reflux disease) K21.9 Depression F33.9 Active/Remission status: remission status unspecified Depression Type: major depressive disorder Major depression recurrence: recurrent
== END 2022-07-22 18:48 | disposition home or self-care (01) | DRG 637 ==
LOC: ED 17:42 → 2S 22:03 → SUATTDRO 22:03 → 2S 23:51

== ENCOUNTER 2022-08-01 07:18 | Inpatient (IN) ==
[2022-08-01] MEDS ORDERED: diphenhydrAMINE 50 MG/ML VIAL IV STA (07:31)
[2022-08-01] MEDS ORDERED: ONDANSETRON INJ 2 MG/ML 2 ML VIAL IV STA (07:31)
[2022-08-01] MEDS ORDERED: METOCLOPRAMIDE HCL INJ 5 MG/ML 2 ML VIAL IV ONE (07:31)
[2022-08-01] MEDS ORDERED: ACETAMINOPHEN 1,000 MG/100 ML VIAL IV STA (07:33)
--- NOTE | 2022-08-01 07:37 | Emergency Department Note ---
Impression & Plan DKA (diabetic ketoacidosis), Vomiting, Leukocytosis, Dialysis patient, Hypokalemia ED Provider Note NAME: JERARDO PEREZ AGE: 51 SEX: M : 1970 ARRIVES VIA: Walk-In INFORMANT: [Patient][mother] ED PROVIDER(S): [Dev Morgan MD] CHIEF COMPLAINT: Nausea and vomiting, hyperglycemia HISTORY OF PRESENT ILLNESS: The patient is a 51-year-old male who is a known diabetic. He does attend dialysis. He was due to be there this morning but because of his nausea and vomiting, presents instead to the ED. The patient was discharged from this hospital on the , 8 days ago. He was in the hospital for DKA and nausea and vomiting. He was in our ED yesterday for high blood sugar and was able to be discharged home. He returns today when his symptoms returned again this morning. The patient denies any fever, he complains of nausea and vomiting despite trying at home nausea medications. His sugar was over 500 this morning. He does have diffuse abdominal pain. No cough or congestion. No diarrhea. PMHx/PSHx: See Below SOCIAL HISTORY: See Below. PHYSICAL EXAM: GENERAL: Patient is in mild distress, actively vomiting. HEENT: No acute trauma, normocephalic atraumatic, mucous membranes moist, no nasal congestion. NECK: No stridor, no adenopathy, no meningismus, trachea is midline. LUNGS: Clear to auscultation bilaterally, no wheeze, no rhonchi, breath sounds equal. HEART: Without murmurs gallops or rubs, regular rate and rhythm. ABDOMEN: Soft, bowel sounds positive, no peritonitis. EXTREMITIES: No cyanosis or edema, full range of motion of all the joints without pain or difficulty, no signs for acute trauma. NEUROLOGIC: Oriented x 3, no acute motor or sensory deficits, no focal weakness. SKIN: No rash, no jaundice, no diaphoresis. DIFFERENTIAL DIAGNOSIS: DKA, electrolyte imbalance, dehydration, infection, foodborne or viral illness, bowel obstruction, among others. EMERGENCY DEPARTMENT COURSE/PROCEDURES: Prior/Outside records reviewed: Recent ED visit and last discharge summary. ECG per my interpretation: Indication was vomiting and weakness. The ECG shows a sinus rhythm with a first-degree AV block. The rate is 83. There is no ST elevation, no PVCs. The QTc is 458 Continuous Cardiac Monitoring per my interpretation: An order was placed for continuous cardiac monitoring. The monitor shows a rate of 85 with sinus rhythm with a first-degree AV block. Critical Care Note: I have personally spent 46 minutes of critical care time in the direct management of this patient. This includes bedside care, interpretation of diagnostic studies, and testing, discussion with consultants, patient, and family members, and other required patient management activities. This 46 minutes is in excess of all separately billable procedures. MEDICAL DECISION MAKING: There is a moderate leukocytosis, this could be consistent with infection or just his vomiting. There was an anemia present but this appears baseline when looking back at previous testing. There was a normal platelet count. VBG did not show any obvious acidosis. Renal panel testing suggested an acidosis with a lower CO2 and an anion gap. Creatinine was high consistent with his dialysis need. Potassium was slightly low. Initial glucose was close to 500. Alk phos was slightly elevated, the remaining liver enzymes were unremarkable. ECG showed a sinus rhythm, there was a first-degree AV block. No obvious acute isch emia. Cardiac enzyme testing x1 was not consistent with acute cardiac injury. COVID, influenza and RSV test were negative. Chest x-ray did not show fluid overload or pneumonia per my review. On exam, the patient was actively vomiting during the time of my assessment. The patient likely has early DKA. This is the second visit in just 24 hours. The patient received IV saline, 500 cc. No additional fluids were given as he does have a dialysis need. He received IV Zofran, IV Reglan, IV Benadryl. He received IV Tylenol. He was eventually ordered for an insulin drip. He received IV potassium. The patient is no longer vomiting and does seem more comfortable. He is in need of a hospital stay, he has had presentations similar to this in the past that have required admission. I spoke with the patient and his mother, I spoke with case management, the on- call hospitalist was consulted. DISPOSITION: Patient presentation and findings warrant a hospital stay. 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 Lor Guadalupe; [facility]) GERD (gastroesophageal reflux disease) History of nephrolithiasis History of pulmonary embolism 11/2020; unk etiology; was on warfarin (taken off 05/2021) Hypertension Hypertensive emergency Hypertensive urgency Junctional rhythm Kidney stone on right side Lumbar radiculopathy Nausea & vomiting Palliative care encounter Personal history of diabetic foot ulcer Urolithiasis Surgical History H/O shoulder surgery RIGHT History of appendectomy History of cardiac cath 10/2018= no stents, no obstructive disease (at [facility]) History of cataract surgery History of esophagogastroduodenoscopy (EGD) (~03/08/20) History of hip surgery left HIP ARTHROSCOPY History of lithotripsy History of open reduction and internal fixation (ORIF) procedure right hip Nausea and vomiting after administration of anesthetic agent S/P arteriovenous (AV) fistula creation Family History Grandfather Myocardial infarction Grandfather (Maternal) Family history of diabetes mellitus Uncle Myocardial infarction Father Hypertension Mother Kidney stone Other No family history of adverse response to anesthesia Denies family history of Colon cancer Ovarian cancer Prostate cancer Breast cancer Social History Smoking Status: Never smoker Tobacco Type: Cigarettes Second Hand Exposure: No; Hx Alcohol Use: No Hx Substance Use: No Preferred Language: Sami Communication Ability: Effective Visual Impairment: No Limitations Hearing Ability: Normal Physical Therapy Teacher Required: No Beliefs That Will Affect Care: None marital status: Current Living Situation: Parent Current Living Situation Comment: lives with parents. current occupational status: disabled How many Children do You have: 2 Feels Safe at Home: Yes Childhood Exposure to Second-Hand Smoke: Yes Dental Care, Regularly: No Physical Activity Frequency: 1-2 Times per Week Seatbelt Use: always Sunscreen Use: No Assistive Devices: None Allergies Allergies Allergy/AdvReac Type Severity Reaction Status Date / Time shellfish derived Allergy Severe anaphylaxis Verified 08/01/22 09:01 codeine Allergy Intermediate Hives Verified 08/01/22 09:01 promethazine Allergy Intermediate itchy/hives Verified 08/01/22 09:01 Home Meds Home Medications Medication Instructions Recorded Confirmed melatonin 3 mg tablet 3 mg PO HS PRN Sleep 09/05/20 08/01/22 acetaminophen 325 mg capsule 650 mg PO Q4H PRN Pain (Scale 09/28/20 08/01/22 Score 1-3) carvedilol 25 mg tablet 50 mg PO BID 10/01/20 08/01/22 ondansetron HCl 4 mg tablet 8 mg PO Q4 PRN nausea or vomiting 03/19/21 08/01/22 prochlorperazine maleate 5 mg 5 mg PO BID PRN Nausea 06/03/21 08/01/22 tablet (Compazine) cholecalciferol (vitamin D3) 50 50 mcg PO QAM 10/25/21 08/01/22 mcg (2,000 unit) capsule (Vitamin D3) mirtazapine 7.5 mg tablet 7.5 mg PO HS 12/29/21 08/01/22 sertraline 100 mg tablet 100 mg PO QAM 12/29/21 08/01/22 sertraline 25 mg tablet 25 mg PO QAM 12/29/21 08/01/22 sucroferric oxyhydroxide 500 mg 1,000 mg PO TIDM 12/29/21 08/01/22 chewable tablet (Velphoro) amlodipine 10 mg tablet 10 mg PO QAM 03/01/22 08/01/22 bupropion HCl 100 mg tablet 100 mg PO QAM 07/20/22 08/01/22 insulin glargine 100 unit/mL (3 16 unit subcut QAM 07/20/22 08/01/22 mL) subcutaneous pen (Basaglar KwikPen U-100 Insulin) pantoprazole 40 mg tablet,delayed 40 mg PO BIDM 07/20/22 08/01/22 release Previous Rx's Medication Instructions Recorded lorazepam 0.5 mg tablet 0.5 mg PO Q6H PRN Anxiety #60 tabs 03/27/21 insulin aspart U-100 100 unit/mL 5 unit (0.05 mL) subcut TIDM PRN 10/24/21 (3 mL) subcutaneous pen (Novolog sliding scale #15 mL FlexPen U-100 Insulin aspart) pen needle, diabetic 32 gauge x #500 ea 12/17/21 5/32" (BD Ultra-Fine Annalise Pen Needle) atorvastatin 10 mg tablet 10 mg PO QAM #90 tabs 02/03/22 blood sugar diagnostic (Contour #100 ea 03/02/22 Next Test Strips) losartan 100 mg tablet 100 mg PO QAM #90 tabs 06/05/22 Results & Data (ED) Vital Signs Vital Signs - 24 hr 08/01/22 07:23 08/01/22 07:36 08/01/22 07:31 Temperature 36.5 C Temperature Source Temporal Artery Scan Pulse Rate 86 85 Pulse Rate [Apical] Pulse Rhythm Regular Pulse Rhythm [Apical] Pulse Strength Normal Respiratory Rate 18 Respiratory Effort / Characteristics Non-Labored Spontaneous Respiratory Depth Normal Respiratory Pattern Regular Blood Pressure 192/80 H Blood Pressure [Right Arm] Blood Pressure Mean 117 Blood Pressure Mean [Right Arm] Blood Pressure Position Sitting Pulse Oximetry 98 Oxygen Delivery Method Room Air Room Air Oxygen Flow Rate Sepsis Recent Fever Within 48 Hours No Sepsis New/Unexplained Change in Mental Status No Sepsis Action Taken by Nursing No Action Required 08/01/22 08:00 08/01/22 09:00 Temperature Temperature Source Pulse Rate Pulse Rate [Apical] 76 79 Pulse Rhythm Pulse Rhythm [Apical] Regular Pulse Strength Respiratory Rate 15 18 Respiratory Effort / Characteristics Non-Labored Spontaneous Non-Labored Spontaneous Respiratory Depth Normal Normal Respiratory Pattern Blood Pressure Blood Pressure [Right Arm] 164/77 H 166/70 H Blood Pressure Mean Blood Pressure Mean [Right Arm] 106 102 Blood Pressure Position Pulse Oximetry 96 99 Oxygen Delivery Method Room Air Nasal Cannula Oxygen Flow Rate 1 Sepsis Recent Fever Within 48 Hours Sepsis New/Unexplained Change in Mental Status Sepsis Action Taken by Snf Medications Current Medication List: was personally reviewed by me Laboratory Data Attestation: I reviewed the patient's lab results. 08/01/22 07:55 08/01/22 07:55 Lab Results 08/01/22 08/01/22 08/01/22 Range/Units 07:37 07:50 07:55 WBC 16.37 H (4.8-10.8) K/ul RBC 3.57 L (4.70-6.10) M/uL Hgb 11.7 L (14.0-18.0) g/dl Hct 34.6 L (42.0-52.0) % MCV 96.9 (80.0-100.0) fL MCH 32.8 (25.0-34.0) pg MCHC 33.8 (32.0-36.0) g/dL RDW Std Deviation 46.1 (36.4-46.3) fL RDW Coeff of Kami 13.1 (11.5-14.5) % Plt Count 316 (130-400) K/uL MPV 9.9 (9.4-12.4) fL Immature Gran % (Auto) 0.5 % Neut % (Auto) 89.4 % Lymph % (Auto) 7.0 % Dickson % (Auto) 2.5 % Eos % (Auto) 0.2 % Baso % (Auto) 0.4 % Neut # (Auto) 14.63 H (1.40-6.50) K/uL Lymph # (Auto) 1.15 L (1.2-3.4) K/uL Dickson # (Auto) 0.41 (0.11-0.59) K/uL Eos # (Auto) 0.03 (0-0.50) K/uL Baso # (Auto) 0.06 (0-0.2) K/uL Immature Gran # (Auto) 0.09 (0.01-0.20) K/uL Sodium (136-145) mmol/L Potassium (3.5-5.1) mmol/L Chloride (98-107) mmol/L Carbon Dioxide (21-32) mmol/L Anion Gap (3-11) BUN (6-23) mg/dl Creatinine (0.6-1.4) mg/dl Est Cr Clr Drug Dosing ml/min Est GFR ( Amer) ml/min Est GFR (Non-Af Amer) ml/min BUN/Creatinine Ratio (10-20) Glucose (70-99(Fasting)) mg/dl POC Glucose 464 H* (70-99) mg/dl Estimat Average Glucose mg/dl Hemoglobin A1c (4.5-5.6) % Calcium (8.5-10.1) mg/dl Magnesium (1.7-2.4) mg/dl Total Bilirubin (0.2-1.0) mg/dl AST (13-39) U/L ALT (7-52) U/L Alkaline Phosphatase (34-104) U/L Troponin I High Sens (0-20) pg/ml Total Protein (6.0-8.3) gm/dl Albumin (3.4-5.0) gm/dl Globulin (2.5-4.0) gm/dl Albumin/Globulin Ratio (0.9-2) SARS-CoV-2 (PCR) NEGATIVE (Negative) Influenza Type A (PCR) Negative (Neg) Influenza Type B (PCR) Negative (Neg) RSV (RT-PCR) Negative (Neg) 08/01/22 08/01/22 Range/Units 07:55 07:55 WBC (4.8-10.8) K/ul RBC (4.70-6.10) M/uL Hgb (14.0-18.0) g/dl Hct (42.0-52.0) % MCV (80.0-100.0) fL MCH (25.0-34.0) pg MCHC (32.0-36.0) g/dL RDW Std Deviation (36.4-46.3) fL RDW Coeff of Kami (11.5-14.5) % Plt Count (130-400) K/uL MPV (9.4-12.4) fL Immature Gran % (Auto) % Neut % (Auto) % Lymph % (Auto) % Dickson % (Auto) % Eos % (Auto) % Baso % (Auto) % Neut # (Auto) (1.40-6.50) K/uL Lymph # (Auto) (1.2-3.4) K/uL Dickson # (Auto) (0.11-0.59) K/uL Eos # (Auto) (0-0.50) K/uL Baso # (Auto) (0-0.2) K/uL Immature Gran # (Auto) (0.01-0.20) K/uL Sodium 133 L (136-145) mmol/L Potassium 3.2 L (3.5-5.1) mmol/L Chloride 90 L (98-107) mmol/L Carbon Dioxide 20 L (21-32) mmol/L Anion Gap 23 H (3-11) BUN 49 H (6-23) mg/dl Creatinine 7.52 H* D (0.6-1.4) mg/dl Est Cr Clr Drug Dosing 10.8 ml/min Est GFR ( Amer) 8.8 ml/min Est GFR (Non-Af Amer) 7.6 ml/min BUN/Creatinine Ratio 6.5 L (10-20) Glucose 452 H* (70-99(Fasting)) mg/dl POC Glucose (70-99) mg/dl Estimat Average Glucose 212 mg/dl Hemoglobin A1c 9.0 H (4.5-5.6) % Calcium 8.9 (8.5-10.1) mg/dl Magnesium 2.2 (1.7-2.4) mg/dl Total Bilirubin 0.7 (0.2-1.0) mg/dl AST 12 L (13-39) U/L ALT 16 (7-52) U/L Alkaline Phosphatase 156 H (34-104) U/L Troponin I High Sens 15.6 (0-20) pg/ml Total Protein 7.3 (6.0-8.3) gm/dl Albumin 4.4 (3.4-5.0) gm/dl Globulin 2.9 (2.5-4.0) gm/dl Albumin/Globulin Ratio 1.5 (0.9-2) SARS-CoV-2 (PCR) (Negative) Influenza Type A (PCR) (Neg) Influenza Type B (PCR) (Neg) RSV (RT-PCR) (Neg) Administered Medications Insulin Aspart (Insulin Aspart Per Unit) 0 units SC ACHS [facility] Stop: 08/31/22 11:29 Last Admin: 08/01/22 13:41 Dose: Not Given Documented By: KM Discontinued Medications Diphenhydramine HCl (Diphenhydramine 50 Mg/Ml Vial) 12.5 mg IV NOW STA Stop: 08/01/22 07:32 Last Admin: 08/01/22 08:04 Dose: 12.5 mg Documented By: KISHA Sodium Chloride (Nss) 500 mls @ 999 mls/hr IV .Q31M JACKI Stop: 08/01/22 08:15 Last Infusion: 08/01/22 08:39 Dose: 0 mls/hr Documented By: Admin: 08/01/22 08:06 Dose: 999 mls/hr Documented By: Acetaminophen (Ofirmev) 1,000 mg in 100 mls @ 400 mls/hr IV NOW STA Stop: 08/01/22 07:47 Last Infusion: 08/01/22 08:18 Dose: 0 mls/hr Documented By: Admin: 08/01/22 08:02 Dose: 400 mls/hr Documented By: Potassium Chloride (K Dom / Wtr) 10 meq in 100 mls @ 100 mls/hr IV ONE ONE; Protocol Stop: 08/01/22 10:17 Last Infusion: 08/01/22 10:54 Dose: 0 mls/hr Documented By: Admin: 08/01/22 09:54 Dose: 100 mls/hr Documented By: Metoclopramide HCl (Metoclopramide Hcl Inj 5 Mg/Ml 2 Ml Vial) 5 mg IV ONE ONE Stop: 08/01/22 07:32 Last Admin: 08/01/22 08:03 Dose: 5 mg Documented By: KISHA Miscellaneous (Dka Goal Range 150-250 Mg/Dl) 1 each N/A ONE ONE Stop: 08/01/22 08:52 Last Admin: 08/01/22 10:09 Dose: 1 each Documented By: Ondansetron HCl (Ondansetron Inj 2 Mg/Ml 2 Ml Vial) 4 mg IV NOW STA Stop: 08/01/22 07:32 Last Admin: 08/01/22 08:02 Dose: 4 mg Documented By: Imaging Data Radiologist's Impression: Chest X-Ray 08/01/22 07:31 XR chest 1V portable CLINICAL HISTORY: vomiting TECHNIQUE: Single frontal radiograph of the chest was obtained. Comparison: Comparison is made to chest radiograph 07/28/2022 FINDINGS: No lines and tubes are seen. The cardiomediastinal silhouette is normal. The lungs are clear. No evidence of pleural effusion or pneumothorax. IMPRESSION: No acute chest disease. ACT 112: Negative or not required by law. Electronically signed by: Maninder Cohen M.D. 08/01/2022 8:19 AM Discharge Plan Visit Data Chief Complaint: Hyperglycemia Stated Complaint: HIGH BLOOD SUGAR,NAUSEA,VOMITING ED Provider: Dev Morgan Discharge Problem: DKA (diabetic ketoacidosis), Vomiting, Leukocytosis, Dialysis patient, Hypokalemia Patient Disposition: Admitted As Inpatient Condition: Fair Discharge Instructions Interventions: ED Discharge Assessment Last Done: 08/01/22 12:44
[2022-08-01] MEDS ORDERED: SODIUM CHLORIDE 0.9% 500 ML IV SCH (07:45)
--- NOTE | 2022-08-01 08:20 | XRay Report ---
XR chest 1V portable CLINICAL HISTORY: vomiting TECHNIQUE: Single frontal radiograph of the chest was obtained. Comparison: Comparison is made to chest radiograph 07/28/2022 FINDINGS: No lines and tubes are seen. The cardiomediastinal silhouette is normal. The lungs are clear. No evid ence of pleural effusion or pneumothorax. IMPRESSION: No acute chest disease. ACT 112: Negative or not required by law. Electronically signed by: Maninder Cohen M.D. 08/01/2022 8:19 AM
[2022-08-01 08:24] LABS: Basophils # (auto) 0.06 K/uL (0-0.2); Basophils % (auto) 0.4 %; Eosinophils # (auto) 0.03 K/uL (0-0.50); Eosinophils % (auto) 0.2 %; Hematocrit (blood only) 34.6 % (42.0-52.0); Hemoglobin 11.7 g/dl (14.0-18.0); Immature Granulocytes # (auto) 0.09 K/uL (0.01-0.20); Immature Granulocytes % (auto) 0.5 %; Lymphocytes # (auto) 1.15 K/uL (1.2-3.4); Mean Corpuscular Hemoglobin 32.8 pg (25.0-34.0); Mean Corpuscular Hgb Conc 33.8 g/dL (32.0-36.0); Mean Corpuscular Volume 96.9 fL (80.0-100.0); Mean Platelet Volume 9.9 fL (9.4-12.4); Monocytes # (auto) 0.41 K/uL (0.11-0.59); Monocytes % (auto) 2.5 %; Neutrophils # (auto) 14.63 K/uL (1.40-6.50); Neutrophils % (auto) 89.4 %; Platelet Count 316 K/uL (130-400); RDW Coefficient of Variation 13.1 % (11.5-14.5); RDW Standard Deviation 46.1 fL (36.4-46.3); Red Blood Count 3.57 M/uL (4.70-6.10); White Blood Count 16.37 K/ul (4.8-10.8)
[2022-08-01 08:44] LABS: Influenza A virus by PCR Negative (Neg); Influenza B virus by PCR Negative (Neg); RSV by PCR Negative (Neg); SARS CoV2 RNA(COVID-19) Ceph NEGATIVE (Negative)
[2022-08-01 08:48] LABS: Albumin Globulin Ratio 1.5 (0.9-2); Albumin Level 4.4 gm/dl (3.4-5.0); BUN Creatinine Ratio 6.5 (10-20); Bilirubin,Total 0.7 mg/dl (0.2-1.0); Calcium 8.9 mg/dl (8.5-10.1); Creatinine Clr Calc Pharmacy 10.8 ml/min; Est GFR (African American) 8.8 ml/min; Est GFR (Non-African American) 7.6 ml/min; Globulin 2.9 gm/dl (2.5-4.0); Magnesium 2.2 mg/dl (1.7-2.4); Potassium 3.2 mmol/L (3.5-5.1); Total Protein 7.3 gm/dl (6.0-8.3); Troponin I High Sensitivity 15.6 pg/ml (0-20)
[2022-08-01] MEDS ORDERED: CARBOHYDRATES FOR HYPOGLYCEMIA PO PRN (08:51)
[2022-08-01] MEDS ORDERED: DEXTROSE 50% 50 ML SYRINGE IV PRN (08:51)
[2022-08-01] MEDS ORDERED: GLUCOSE 40% GEL 15 GM TUBE PO PRN (08:51)
[2022-08-01] MEDS ORDERED: DKA GOAL RANGE 150-250 mg/dl ONE ×2 (08:51→10:59)
[2022-08-01] MEDS ORDERED: GLUCOSE 10 TAB/TUBE PO PRN (08:51)
[2022-08-01] MEDS ORDERED: GLUCAGON FOR INJ 1 MG VIAL SQ PRN (08:51)
[2022-08-01] MEDS ORDERED: POTASSIUM CHLORIDE / WTR 10 MEQ/100 ML PLCT IV ONE (09:18)
[2022-08-01] MEDS ORDERED: NovoLIN-R BOLUS FROM BAG IV ONE (09:30)
[2022-08-01] MEDS ORDERED: LORazepam 0.5 MG TAB PO PRN (09:39)
[2022-08-01] MEDS ORDERED: MELATONIN 3 MG TAB PO PRN (09:39)
[2022-08-01] MEDS ORDERED: PROCHLORPERAZINE MALEATE 5 MG TAB PO PRN (09:39)
[2022-08-01] MEDS ORDERED: PHARMACY GLYCEMIC MGMT CONSULT PRN ×2 (09:43→10:49)
[2022-08-01 09:58] LABS: Estimated Average Glucose 212 mg/dl
[2022-08-01] MEDS ORDERED: STAT IV Infusion **Titration per Protocol STA (10:49)
[2022-08-01] MEDS ORDERED: PENDING D5 1/2NS+40mEq KCL IVF SCH (11:00)
[2022-08-01] MEDS ORDERED: PENDING 1/2NSS+40mEq KCL IVF SCH (11:00)
[2022-08-01] MEDS ORDERED: SODIUM CHLORIDE 0.9% 1000ML 1,000 ML IV SCH (11:00)
[2022-08-01] MEDS ORDERED: INSULIN REGULAR 250 UNITS in SODIUM CHLORIDE 0.9% 247.5 ML IV SCH (11:00)
[2022-08-01 11:12] LABS: Base Excess VBG 0.9 mEq/L; HCO3 VBG 24 mmol/L; Oxygen Saturation VBG 80.8 %; PCO2 VBG 33 mmHg (38-50); PO2 VBG 45 mmHg; pH VBG 7.47 (7.36-7.41)
[2022-08-01] MEDS ORDERED: INSULIN ASPART PER UNIT CHARGE SC SCH (11:30)
--- NOTE | 2022-08-01 11:37 | Electrocardiogram Report ---
Test Reason : Blood Pressure : / mmHG Vent. Rate : 083 BPM Atrial Rate : 083 BPM P-R Int : 222 ms QRS Dur : 106 ms QT Int : 390 ms P-R-T Axes : 056 092 -11 degrees QTc Int : 458 ms Sinus rhythm with 1st degree A-V block Rightward axis Cannot rule out Inferior infarct , age undetermined Abnormal ECG When compared with ECG of 31-JUL-2022 16:51, (unconfirmed) Minimal criteria for Inferior infarct are now Present Inverted T waves have replaced nonspecific T wave abnormality in Inferior leads Confirmed by Dewayne Spivey ([id number]) on 08/01/2022 11:36:41 AM Referred By: REFERRED SELF Confirmed By:Pee Spivey
[2022-08-01 11:59] LABS: Calcium 8.5 mg/dl (8.5-10.1); Creatinine Clr Calc Pharmacy 10.6 ml/min; Est GFR (African American) 8.5 ml/min; Est GFR (Non-African American) 7.3 ml/min; Magnesium 2.2 mg/dl (1.7-2.4); Phosphorus 2.6 mg/dl (2.5-4.9); Potassium 3.7 mmol/L (3.5-5.1)
[2022-08-01] MEDS ORDERED: ACETAMINOPHEN 325 MG TAB PO PRN (13:11)
[2022-08-01] MEDS: INSULIN ASPART PER UNIT CHARGE SC SCH ×3 (13:41→20:56)
[2022-08-01] MEDS: buPROPion HCl 100 MG TABLET PO SCH (14:01)
[2022-08-01] MEDS: amLODIPine BESYLATE 5 MG TAB PO SCH (14:01)
[2022-08-01] MEDS: carvediloL 25 MG TAB PO SCH ×2 (14:02→17:06)
[2022-08-01] MEDS: SERTRALINE HCL 100 MG TABLET PO SCH (14:02)
[2022-08-01] MEDS: INSULIN REGULAR 250 UNITS in SODIUM CHLORIDE 0.9% 247.5 ML IV SCH ×2 (14:03→17:17)
[2022-08-01] MEDS: SERTRALINE HCL 50 MG TABLET PO SCH (14:03)
[2022-08-01] MEDS: POTASSIUM CHLORIDE 40 MEQ in D5W AND 1/2NSS 1,000 ML IV SCH ×2 (14:06→22:05)
--- NOTE | 2022-08-01 14:40 | Pharmacy Report ---
Pharmacy Glycemic Short Note 2 - Date of Service August 01, 2022 - Glycemic Short BSG Results (Last 24 hours): 08/01/22 08/01/22 08/01/22 07:37 07:55 10:14 Glucose 452 H* POC Glucose 464 H* 250 H 08/01/22 08/01/22 08/01/22 11:20 11:25 12:56 Glucose 228 H POC Glucose 220 H 187 H 08/01/22 13:53 Glucose POC Glucose 221 H OUTPATIENT ANTIDIABETIC REGIMEN: * Basaglar 16 units daily * Novolog CF 30 CR 12 * HbA1C - patient dialysis so not patient financial representative of true glycemic control ASSESSMENT: * Mr De Los Santos is a 51 y/o M with a PMH of T1DM who presents with hyperglycemia. Patient took 16 units of Novolog [employer]IDENT[employer] SALES REP. * BSG on admission was 464 and trended downwards to 220 by 11 AM. Patient had anion gap. * Insulin infusion initiated at 3 units/hr. Dextrose infusion at 125 mL/hr to continue insulin infusion and close gap. * Plan for insulin transition on 08/02/22. PLAN FOR INPATIENT GLYCEMIC CONTROL: * Basal insulin * hold - on insulin infusion * Bolus insulin * NovoLog per scale ACHS or Q6hrs while NPO * per insulin infusion calculator
[2022-08-01] MEDS: PROCHLORPERAZINE 5 MG in SYRINGE 4 ML IV PRN ×2 (15:14→20:31)
[2022-08-01] MEDS ORDERED: LORazepam 2 MG/1 ML VIAL IV PRN (15:28)
[2022-08-01] MEDS ORDERED: ACETAMINOPHEN 1,000 MG/100 ML VIAL IV PRN (15:29)
[2022-08-01 16:04] LABS: Calcium 8.4 mg/dl (8.5-10.1); Creatinine Clr Calc Pharmacy 10.4 ml/min; Est GFR (African American) 8.1 ml/min; Magnesium 2.3 mg/dl (1.7-2.4); Potassium 3.4 mmol/L (3.5-5.1)
[2022-08-01 16:09] LABS: Phosphorus 3.6 mg/dl (2.5-4.9)
[2022-08-01] MEDS ORDERED: hydrALAZINE HCL 20 MG/ML VIAL IV PRN (16:46)
[2022-08-01] MEDS ORDERED: PANTOprazole 40 MG TAB PO SCH (17:00)
[2022-08-01 20:31] LABS: Base Excess ABG 1.6 mEq/L (-9-1.8); HCO3 ABG 25 mmol/L (19-24); Oxygen Saturation ABG 99.1 % (90-95); PCO2 ABG 33 mmHg (35-46); PO2 ABG 105 mmHg (80-95); pH ABG 7.48 (7.35-7.45)
[2022-08-01 20:51] LABS: Allen Test Pos (Pos)
[2022-08-01] MEDS: HEPARIN SOD 5,000 UNIT/0.5 ML VIAL SQ SCH (20:52)
[2022-08-01] MEDS: LOSARTAN POTASSIUM 50 MG TAB PO SCH (20:55)
[2022-08-01] MEDS: MIRTAZAPINE TAB 15 MG TAB PO SCH (20:55)
[2022-08-01] MEDS: PANTOprazole 40 MG in SYRINGE 0 ML IV SCH (21:07)
[2022-08-01 21:09] LABS: BUN Creatinine Ratio 5.7 (10-20); Calcium 8.3 mg/dl (8.5-10.1); Est GFR (African American) 7.7 ml/min; Est GFR (Non-African American) 6.6 ml/min; Magnesium 2.2 mg/dl (1.7-2.4); Phosphorus 3.5 mg/dl (2.5-4.9); Potassium 3.8 mmol/L (3.5-5.1)
--- NOTE | 2022-08-01 22:23 | History & Physical Report ---
Date of Service August 01, 2022 Assessment & Plan (1) DKA (diabetic ketoacidosis): Plan: DKA in a 51 yo male with diabetes will consult clinical informatics educator will place on insulin drip bridge once anion gap is closed. closely monitor electorylyes, continue IVF. (2) Vomiting: Plan: place anti nausea medication likely secondary to his DKA (3) Dialysis patient: Plan: Patient is an ESRD patient. will require dialysis either today or tomorrow. will consult nephro (4) ESRD (end stage renal disease): Plan: as above (5) Depression: Plan: will resume home meds (6) Hypertension: Plan: will place on hydralazine until he is able to tolerate PO medications. Admission and Anticipated Discharge Date Admission Date: August 01, 2022 History of Present Illness Chief Complaint: nausea Primary Care Provider: Genet Cool MD Jorge Alberto De Los Santos is a 51-year-old male with history of end-stage renal disease on hemodialysis q. Thursday/Thursday/Thursday, diabetes, coronary artery disease, hypertension presenting with intractable nausea and vomiting for past 48 hours. Patient reports persistent nausea ongoing for the last 48 hours. He has vomited numerous times. Patient reports limited intake during this time and difficulty taking her medications. Denies abdominal pain, distention, shortness of breath. Denies fever. Patient is an uric. Last full dialysis treatment was Thursday without difficulty. He denies recent travel or sick contacts. Presently with ongoing nausea. Vomited several times during my encounter. Otherwise no additional complaints. Allergies Allergy/AdvReac Type Severity Reaction Status Date / Time shellfish derived Allergy Severe anaphylaxis Verified 08/01/22 09:01 codeine Allergy Intermediate Hives Verified 08/01/22 09:01 promethazine Allergy Intermediate itchy/hives Verified 08/01/22 09:01 Home Medications Medication Instructions Recorded Confirmed Type melatonin 3 mg tablet 3 mg PO HS PRN Sleep 09/05/20 08/01/22 History acetaminophen 325 mg capsule 650 mg PO Q4H PRN Pain (Scale 09/28/20 08/01/22 History Score 1-3) carvedilol 25 mg tablet 50 mg PO BID 10/01/20 08/01/22 History ondansetron HCl 4 mg tablet 8 mg PO Q4 PRN nausea or vomiting 03/19/21 08/01/22 History lorazepam 0.5 mg tablet 0.5 mg PO Q6H PRN Anxiety #60 tabs 03/27/21 08/01/22 Rx prochlorperazine maleate 5 mg 5 mg PO BID PRN Nausea 06/03/21 08/01/22 History tablet (Compazine) insulin aspart U-100 100 unit/mL 5 unit (0.05 mL) subcut TIDM PRN 10/24/21 08/01/22 Rx (3 mL) subcutaneous pen (Novolog sliding scale #15 mL FlexPen U-100 Insulin aspart) cholecalciferol (vitamin D3) 50 50 mcg PO QAM 10/25/21 08/01/22 History mcg (2,000 unit) capsule (Vitamin D3) pen needle, diabetic 32 gauge x #500 ea 12/17/21 07/31/22 Rx 32" (BD Ultra-Fine Annalise Pen Needle) mirtazapine 7.5 mg tablet 7.5 mg PO HS 12/29/21 08/01/22 History sertraline 100 mg tablet 100 mg PO QAM 12/29/21 08/01/22 History sertraline 25 mg tablet 25 mg PO QAM 12/29/21 08/01/22 History sucroferric oxyhydroxide 500 mg 1,000 mg PO TIDM 12/29/21 08/01/22 History chewable tablet (Velphoro) atorvastatin 10 mg tablet 10 mg PO QAM #90 tabs 02/03/22 08/01/22 Rx amlodipine 10 mg tablet 10 mg PO QAM 03/01/22 08/01/22 History blood sugar diagnostic (Contour #100 ea 03/02/22 07/31/22 Rx Next Test Strips) losartan 100 mg tablet 100 mg PO QAM #90 tabs 06/05/22 08/01/22 Rx bupropion HCl 100 mg tablet 100 mg PO QAM 07/20/22 08/01/22 History insulin glargine 100 unit/mL (3 16 unit subcut QAM 07/20/22 08/01/22 History mL) subcutaneous pen (Basaglar KwikPen U-100 Insulin) pantoprazole 40 mg tablet,delayed 40 mg PO BIDM 07/20/22 08/01/22 History release Past Med/Surg History Medical History Anemia of chronic disease Anxiety AV fistula left upper arm CAD (coronary artery disease) mild, non-obstructive CAD per 10/2018 cardiac cath> [facility] Chronic pleural effusion PleurX catheter placed 01/24/21--removed 07/2021 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 Lor Guadalupe; [facility]) GERD (gastroesophageal reflux disease) History of nephrolithiasis History of pulmonary embolism 11/2020; unk etiology; was on warfarin (taken off 05/2021) Hypertension Hypertensive emergency Hypertensive urgency Junctional rhythm Kidney stone on right side Lumbar radiculopathy Nausea & vomiting Palliative care encounter Personal history of diabetic foot ulcer Urolithiasis Surgical History H/O shoulder surgery RIGHT History of appendectomy History of cardiac cath 10/2018= no stents, no obstructive disease (at [facility]) History of cataract surgery History of esophagogastroduodenoscopy (EGD) (~03/08/20) History of hip surgery left HIP ARTHROSCOPY History of lithotripsy History of open reduction and internal fixation (ORIF) procedure right hip Nausea and vomiting after administration of anesthetic agent S/P arteriovenous (AV) fistula creation Family History Grandfather Myocardial infarction Grandfather (Maternal) Family history of diabetes mellitus Uncle Myocardial infarction Father Hypertension Mother Kidney stone Other No family history of adverse response to anesthesia Denies family history of Colon cancer Ovarian cancer Prostate cancer Breast cancer Social History Smoking Status: Never smoker Tobacco Type: Cigarettes Second Hand Exposure: No; Hx Alcohol Use: No Hx Substance Use: No Preferred Language: Danish Communication Ability: Effective Visual Impairment: No Limitations Hearing Ability: Normal Single Stroke Preformer Required: No Beliefs That Will Affect Care: None marital status: Current Living Situation: Parent and Family Current Living Situation Comment: lives with parents. current occupational status: disabled How many Children do You have: 2 Other Information That Helps Us Care for You: No Feels Safe at Home: Yes Safety Concerns: Feels Safe At This Time Childhood Exposure to Second-Hand Smoke: Yes Dental Care, Regularly: No Physical Activity Frequency: 1-2 Times per Week Seatbelt Use: always Sunscreen Use: No Assistive Devices: Denture - Upper Review of Systems Review of Systems: Constitutional: tired Eyes: No diplopia, no worsening or blurred vision ENT: normal hearing, no trouble swallowing Respiratory: No cough, sputum, dyspnea at rest or on exertion Cardiovascular: No chest pain, tightness or palpitations Abdomen: (+) nausea, vomiting, no diarrhea or constipation Musculoskeletal: No joint pain, calf pain, swelling Neurologic: No weakness, numbness/tingling, or balance problems Psychiatric: (+) depression, Skin: No rash or itch Physical Exam Physical Exam: General: patient in moderate distress lying in beds. He is awake alert and oriented. Able to answer questions appropriately and follow commands Skin: warm, dry, intact, no rashes or lesions HEENT: NC/AT, PERRL, EOMI, anicteric sclera, conjunctiva without injection, external ear normal to inspection and nontender, nares patent, dry mucus membranes, dentition intact, no oropharyngeal lesions, neck supple, trachea midline, no LAD, no thyromegaly, no JVD Heart: +S1/S2, regular, no m/r/g Lungs: equal air entry bilaterally, no rales/rhonchi/wheezes Abd: +BS, soft, NT/ND, no masses/organomegaly/ascites Ext: warm, 2+ pulses in UE/LE bilaterally, no clubbing/cyanosis or edema, AV fistula left upper extremity with palpable thrill Neuro: nonfocal, patient AA&O x 4, speech intact, no facial droop, moving all extremities on command with equal strength 5/5 Results & Data Results & Data ([facility]) Vital Signs (Past 12 Hours) Vital Signs Temp Pulse Pulse Resp BP Pulse Ox O2 Del Method 08/01/22 20:35 36.7 C 90 18 184/81 H 99 Room Air 08/01/22 17:02 81 181/79 H 08/01/22 15:16 36.7 C 08/01/22 14:59 84 203/80 H 98 Room Air 08/01/22 14:26 36.2 C L 90 20 192/77 H 98 Room Air PG Care Time/CCT Total # of Minutes Spent Total Time Spent with Patient: Total time spent is greater than 50% in coordination of care (as documented) at patient's floor/unit and/or counseling patient: Coding Level of Care Code 93414 INT INP/OBS CARE 3/75MIN Diagnoses DKA (diabetic ketoacidosis) E10.10 Diabetes mellitus complication detail: without coma Diabetes mellitus type: type 1 Vomiting R11.2 Nausea presence: with nausea Vomiting type: unspecified Dialysis patient Z99.2 ESRD (end stage renal disease) N18.6 Depression F33.9 Active/Remission status: remission status unspecified Depression Type: major depressive disorder Major depression recurrence: recurrent Hypertension I10 Hypertension type: unspecified (1) DKA (diabetic ketoacidosis) Diabetes mellitus complication detail: without coma Diabetes mellitus type: type 1 Qualified Code(s): E10.10 - Type 1 diabetes mellitus with ketoacidosis without coma (2) Vomiting Nausea presence: with nausea Vomiting type: unspecified Qualified Code(s): R11.2 - Nausea with vomiting, unspecified (5) Depression Active/Remission status: remission status unspecified Depression Type: major depressive disorder Major depression recurrence: recurrent Qualified Code(s): F33.9 - Major depressive disorder, recurrent, unspecified (6) Hypertension Hypertension type: unspecified Qualified Code(s): I10 - Essential (primary) hypertension
[2022-08-01 23:57] LABS: BUN Creatinine Ratio 5.8 (10-20); Calcium 7.8 mg/dl (8.5-10.1); Creatinine Clr Calc Pharmacy 9.7 ml/min; Est GFR (African American) 7.5 ml/min; Est GFR (Non-African American) 6.5 ml/min; Magnesium 2.1 mg/dl (1.7-2.4); Phosphorus 3.6 mg/dl (2.5-4.9); Potassium 3.6 mmol/L (3.5-5.1)
[2022-08-02 00:37] LABS: Base Excess ABG 2.5 mEq/L (-9-1.8); HCO3 ABG 26 mmol/L (19-24); PCO2 ABG 37 mmHg (35-46); PO2 ABG 112 mmHg (80-95); pH ABG 7.46 (7.35-7.45)
[2022-08-02 00:38] LABS: Allen Test Pos (Pos)
[2022-08-02 04:49] LABS: Base Excess ABG 0.8 mEq/L (-9-1.8); HCO3 ABG 25 mmol/L (19-24); PCO2 ABG 39 mmHg (35-46); PO2 ABG 97 mmHg (80-95); pH ABG 7.42 (7.35-7.45)
[2022-08-02 04:50] LABS: Allen Test Pos (Pos)
[2022-08-02 05:15] LABS: BUN Creatinine Ratio 5.5 (10-20); Calcium 7.9 mg/dl (8.5-10.1); Creatinine Clr Calc Pharmacy 9.2 ml/min; Magnesium 2.1 mg/dl (1.7-2.4); Phosphorus 3.8 mg/dl (2.5-4.9); Potassium 3.7 mmol/L (3.5-5.1)
[2022-08-02] MEDS: POTASSIUM CHLORIDE 40 MEQ in D5W AND 1/2NSS 1,000 ML IV SCH (06:19)
[2022-08-02 09:09] LABS: HCO3 ABG 24 mmol/L (19-24); Oxygen Saturation ABG 99.4 % (90-95); PCO2 ABG 33 mmHg (35-46); PO2 ABG 109 mmHg (80-95); pH ABG 7.46 (7.35-7.45)
[2022-08-02] MEDS ORDERED: LACTATED RINGER'S 1,000 ML IV SCH (09:30)
[2022-08-02] MEDS: PANTOprazole 40 MG in SYRINGE 0 ML IV SCH ×2 (09:38→20:51)
[2022-08-02] MEDS: PROCHLORPERAZINE 5 MG in SYRINGE 4 ML IV PRN (09:38)
[2022-08-02] MEDS ORDERED: LANTUS PER UNIT CHARGE SQ SCH ×2 (09:45→21:00)
[2022-08-02] MEDS ORDERED: LANTUS PER UNIT CHARGE SQ ONE (09:45)
[2022-08-02 09:48] LABS: BUN Creatinine Ratio 5.2 (10-20); Creatinine Clr Calc Pharmacy 9.1 ml/min; Est GFR (African American) 6.9 ml/min; Est GFR (Non-African American) 5.9 ml/min; Magnesium 2.1 mg/dl (1.7-2.4)
[2022-08-02 09:49] LABS: Allen Test Pos (Pos)
[2022-08-02] MEDS: INSULIN ASPART PER UNIT CHARGE SC SCH ×4 (10:00→20:58)
[2022-08-02] MEDS: INSULIN REGULAR 250 UNITS in SODIUM CHLORIDE 0.9% 247.5 ML IV SCH (10:06)
--- NOTE | 2022-08-02 10:22 | Nephrology Consultation ---
Date of Consultation August 02, 2022 Assessment & Plan (1) ESRD (end stage renal disease): Patient with ESRD on dialysis Thursday. He missed his outpatient dialysis yesterday. Electrolytes are stable but creatinine and BUN are high. We will dialyze him today, target UF of 2 L. Next dialysis will be Thursday. (2) Hypertension: Blood pressure is above target. Patient has resumed his home antihypertensives. Anticipate improvement in blood pressure with dialysis and fluid removal. History of Present Illness Reason for Consultation: ESRD Requesting Physician: Sami Mckeon Attending Physician: Sami Mckeon History of Present Illness This is a 51-year-old male with history of diabetes, depression, ESRD on dialysis Thursday using left upper arm AV fistula, hypertension and autonomic dysfunction who was admitted with nausea vomiting and elevated blood pressure. Patient missed his dialysis yesterday. He normally goes Thursday in [place]. He denies any shortness of breath. Vomiting has subsided. Systolic blood pressure has been high in the 180s. I initially saw the patient in consultation. I later returned to see the patient while on dialysis. Patient was seen and examined while on dialysis Allergies Allergy/AdvReac Type Severity Reaction Status Date / Time shellfish derived Allergy Severe anaphylaxis Verified 08/01/22 09:01 codeine Allergy Intermediate Hives Verified 08/01/22 09:01 promethazine Allergy Intermediate itchy/hives Verified 08/01/22 09:01 Home Medications Medication Instructions Recorded Confirmed Type melatonin 3 mg tablet 3 mg PO HS PRN Sleep 09/05/20 08/01/22 History acetaminophen 325 mg capsule 650 mg PO Q4H PRN Pain (Scale 09/28/20 08/01/22 History Score 1-3) carvedilol 25 mg tablet 50 mg PO BID 10/01/20 08/01/22 History ondansetron HCl 4 mg tablet 8 mg PO Q4 PRN nausea or vomiting 03/19/21 08/01/22 History lorazepam 0.5 mg tablet 0.5 mg PO Q6H PRN Anxiety #60 tabs 03/27/21 08/01/22 Rx prochlorperazine maleate 5 mg 5 mg PO BID PRN Nausea 06/03/21 08/01/22 History tablet (Compazine) insulin aspart U-100 100 unit/mL 5 unit (0.05 mL) subcut TIDM PRN 10/24/21 08/01/22 Rx (3 mL) subcutaneous pen (Novolog sliding scale #15 mL FlexPen U-100 Insulin aspart) cholecalciferol (vitamin D3) 50 50 mcg PO QAM 10/25/21 08/01/22 History mcg (2,000 unit) capsule (Vitamin D3) pen needle, diabetic 32 gauge x #500 ea 12/17/21 07/31/22 Rx " (BD Ultra-Fine Annalise Pen Needle) mirtazapine 7.5 mg tablet 7.5 mg PO HS 12/29/21 08/01/22 History sertraline 100 mg tablet 100 mg PO QAM 12/29/21 08/01/22 History sertraline 25 mg tablet 25 mg PO QAM 12/29/21 08/01/22 History sucroferric oxyhydroxide 500 mg 1,000 mg PO TIDM 12/29/21 08/01/22 History chewable tablet (Velphoro) atorvastatin 10 mg tablet 10 mg PO QAM #90 tabs 02/03/22 08/01/22 Rx amlodipine 10 mg tablet 10 mg PO QAM 03/01/22 08/01/22 History blood sugar diagnostic (Contour #100 ea 03/02/22 07/31/22 Rx Next Test Strips) losartan 100 mg tablet 100 mg PO QAM #90 tabs 06/05/22 08/01/22 Rx bupropion HCl 100 mg tablet 100 mg PO QAM 07/20/22 08/01/22 History insulin glargine 100 unit/mL (3 16 unit subcut QAM 07/20/22 08/01/22 History mL) subcutaneous pen (Basaglar KwikPen U-100 Insulin) pantoprazole 40 mg tablet,delayed 40 mg PO BIDM 07/20/22 08/01/22 History release Patient History Medical History Anemia of chronic disease Anxiety AV fistula left upper arm CAD (coronary artery disease) mild, non-obstructive CAD per 10/2018 cardiac cath> [facility] Chronic pleural effusion PleurX catheter placed 01/24/21--removed 07/2021 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 Lor Guadalupe; [facility]) GERD (gastroesophageal reflux disease) History of nephrolithiasis History of pulmonary embolism 11/2020; unk etiology; was on warfarin (taken off 05/2021) Hypertension Hypertensive emergency Hypertensive urgency Junctional rhythm Kidney stone on right side Lumbar radiculopathy Nausea & vomiting Palliative care encounter Personal history of diabetic foot ulcer Urolithiasis Surgical History H/O shoulder surgery RIGHT History of appendectomy History of cardiac cath 10/2018= no stents, no obstructive disease (at [facility]) History of cataract surgery History of esophagogastroduodenoscopy (EGD) (~03/08/20) History of hip surgery left HIP ARTHROSCOPY History of lithotripsy History of open reduction and internal fixation (ORIF) procedure right hip Nausea and vomiting after administration of anesthetic agent S/P arteriovenous (AV) fistula creation Family History Grandfather Myocardial infarction Grandfather (Maternal) Family history of diabetes mellitus Uncle Myocardial infarction Father Hypertension Mother Kidney stone Other No family history of adverse response to anesthesia Denies family history of Colon cancer Ovarian cancer Prostate cancer Breast cancer Social History Smoking Status: Never smoker Tobacco Type: Cigarettes Second Hand Exposure: No; Hx Alcohol Use: No Hx Substance Use: No Preferred Language: Italian Communication Ability: Effective Visual Impairment: No Limitations Hearing Ability: Normal Digital Forensic Examiner Required: No Beliefs That Will Affect Care: None marital status: Current Living Situation: Parent and Family Current Living Situation Comment: lives with parents. current occupational status: disabled How many Children do You have: 2 Other Information That Helps Us Care for You: No Feels Safe at Home: Yes Safety Concerns: Feels Safe At This Time Childhood Exposure to Second-Hand Smoke: Yes Dental Care, Regularly: No Physical Activity Frequency: 1-2 Times per Week Seatbelt Use: always Sunscreen Use: No Assistive Devices: Denture - Upper Review of Systems Review of Systems: All other systems were reviewed and negative except as noted in HPI Physical Exam Physical Exam: General exam: Appears comfortable, no acute distress HEENT: Pupils are equal and reactive to light Neck: No JVD, neck is supple trachea is midline Respiratory system: Clear breath sounds bilaterally. Gastrointestinal: Abdomen is soft, non distended, non tender, bowel sounds are present CVS: Regular rate and rhythm. No murmurs, rubs or gallops Musculoskeletal: No joint or muscle tenderness Extremities: Non tender, no edema, peripheral pulses are present Neuro: Oriented, no tremors, no focal neurological deficits Skin: No rashes Results & Data ([facility]) Vital Signs (Past 12 Hours) Vital Signs Temp Pulse Pulse Pulse Resp BP BP 08/02/22 10:00 72 164/79 H 08/02/22 09:30 74 182/88 H 08/02/22 09:15 76 185/90 H 08/02/22 09:03 36.5 C 85 08/02/22 07:25 36.6 C 80 16 189/81 H Pulse Ox O2 Del Method 08/02/22 10:00 08/02/22 09:30 08/02/22 09:15 08/02/22 09:03 08/02/22 07:25 95 Room Air Laboratory Results 08/02/22 08:54 08/01/22 08/01/22 08/01/22 11:25 15:07 20:09 Phosphorus 2.6 3.6 D 3.5 08/01/22 08/02/22 08/02/22 22:53 04:31 08:54 Phosphorus 3.6 3.8 4.0 (2) Hypertension Hypertension type: unspecified Qualified Code(s): I10 - Essential (primary) hypertension
[2022-08-02] MEDS ORDERED: INSULIN ASPART PER UNIT CHARGE SC SCH (12:00)
[2022-08-02] MEDS: HEPARIN SOD 5,000 UNIT/0.5 ML VIAL SQ SCH ×2 (13:23→20:28)
[2022-08-02] MEDS: buPROPion HCl 100 MG TABLET PO SCH (13:40)
[2022-08-02] MEDS: SERTRALINE HCL 100 MG TABLET PO SCH (13:40)
[2022-08-02] MEDS: amLODIPine BESYLATE 5 MG TAB PO SCH (13:40)
[2022-08-02] MEDS: SERTRALINE HCL 50 MG TABLET PO SCH (13:40)
[2022-08-02] MEDS: carvediloL 25 MG TAB PO SCH ×2 (13:40→17:44)
--- NOTE | 2022-08-02 14:50 | Pharmacy Report ---
Pharmacy Glycemic Short Note 2 - Date of Service August 02, 2022 - Glycemic Short BSG Results (Last 24 hours): 08/01/22 08/01/22 08/01/22 14:54 15:07 15:07 Glucose 230 H POC Glucose 247 H 215 H 08/01/22 08/01/22 08/01/22 16:08 17:04 17:21 Glucose POC Glucose 190 H 145 H 161 H 08/01/22 08/01/22 08/01/22 18:24 19:30 20:09 Glucose 159 H POC Glucose 147 H 140 H 08/01/22 08/01/22 08/01/22 20:31 21:34 22:29 Glucose POC Glucose 155 H 165 H 167 H 08/01/22 08/01/22 08/02/22 22:53 23:32 01:38 Glucose 178 H POC Glucose 172 H 163 H 08/02/22 08/02/22 08/02/22 03:30 04:31 05:27 Glucose 162 H POC Glucose 164 H 160 H 08/02/22 08/02/22 08:54 12:22 Glucose 185 H POC Glucose 169 H OUTPATIENT ANTIDIABETIC REGIMEN: * Basaglar 16 units daily * Novolog CF 30 CR 12 * HbA1C - patient dialysis so not national sales representative of true glycemic control ASSESSMENT: 08/02: * Labs were within normal limits this morning and gap was closed. Insulin drip discontinued this morning along with Dextrose in IV fluids. * Lantus 8 units was also given this morning. Dosing based off of what has worked for him on previous admissions. HS Lantus dose scale based on BSG ordered. * Patient received HD this morning. * Novolog SQ bolus ordered at noon. Parameters again based off what has worked for him previously. Pre-lunch BSG stable at 169 mg/dl. 08/01: * Mr De Los Santos is a 51 y/o M with a PMH of T1DM who presents with hyperglycemia. 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 * BSG on admission was 464 and trended downwards to 220 by 11 AM. Patient had anion gap. * Insulin infusion initiated at 3 units/hr. Dextrose infusion at 125 mL/hr to continue insulin infusion and close gap. * Plan for insulin transition on 08/02/22. PLAN FOR INPATIENT GLYCEMIC CONTROL: * Basal insulin * Lantus 8 units SQ today AM. * Lantus 0-4 units SQ at HS based on BSG * Bolus insulin * NovoLog per scale ACHS or Q6hrs while NPO * Correction Factor: 35 mg/dl/unit * Carb ratio: 1 unit for every 15 gm of carb consumed
[2022-08-02] MEDS: MIRTAZAPINE TAB 15 MG TAB PO SCH (20:27)
[2022-08-02] MEDS: LOSARTAN POTASSIUM 50 MG TAB PO SCH (20:27)
--- NOTE | 2022-08-02 22:54 | Hospitalist Progress Note ---
Date of Service August 02, 2022 Assessment & Plan (1) DKA (diabetic ketoacidosis): Plan: DKA in a 51 yo male with diabetes Patient's anion gap is closed and patient had dialysis on 08/02 will stop insulin drip and restart glargine and place him on his diet. Patient will be on a regular diet this evening. IVF will also be stopped. (2) Vomiting: Plan: place anti nausea medication likely secondary to his DKA (3) Dialysis patient: Plan: Patient is an ESRD patient. will require dialysis either today or tomorrow. will consult nephro (4) ESRD (end stage renal disease): Plan: as above (5) Depression: Plan: will resume home meds (6) Hypertension: Plan: restarted his home meds Admission and Anticipated Discharge Date Admission Date: August 01, 2022 Subjective Mr. De Los Santos reports feeling better and he is interested in starting a regular diet after tolerating clears this afternoon. Patient states that he feels he was not checking his blood sugars closely at home which led to his blood sugar being elevated. He understands that this leads to his DKA which then leads to his nausea and vomiting. Review of Systems Review of Systems: All systems reviewed & are unremarkable except as noted in HPI & below Physical Exam Physical Exam: General: He is awake alert and oriented. Able to answer questions appropriately and follow commands Skin: warm, dry, intact, no rashes or lesions HEENT: NC/AT, PERRL, EOMI, anicteric sclera, conjunctiva without injection, external ear normal to inspection and nontender, nares patent, dry mucus membranes, dentition intact, no oropharyngeal lesions, neck supple, trachea midline, no LAD, no thyromegaly, no JVD Heart: +S1/S2, regular, no m/r/g Lungs: equal air entry bilaterally, no rales/rhonchi/wheezes Abd: +BS, soft, NT/ND, no masses/organomegaly/ascites Ext: warm, 2+ pulses in UE/LE bilaterally, no clubbing/cyanosis or edema, AV fistula left upper extremity with palpable thrill Neuro: nonfocal, patient AA&O x 4, speech intact, no facial droop, moving all extremities on command with equal strength 5/5 Results & Data Results & Data ([facility]) Vital Signs (Past 12 Hours) Vital Signs Temp Pulse Pulse Pulse Resp BP BP 08/02/22 20:16 37 C 73 18 146/67 H 08/02/22 16:48 178/72 H 08/02/22 14:59 36.7 C 85 16 188/77 H 08/02/22 13:10 36.5 C 82 168/79 H 08/02/22 13:00 78 171/81 H 08/02/22 12:30 74 164/73 H 08/02/22 12:00 82 162/76 H 08/02/22 11:30 75 175/81 H 08/02/22 11:00 74 168/78 H Pulse Ox O2 Del Method 08/02/22 20:16 96 Room Air 08/02/22 16:48 08/02/22 14:59 98 Room Air 08/02/22 13:10 08/02/22 13:00 08/02/22 12:30 08/02/22 12:00 08/02/22 11:30 08/02/22 11:00 PG Care Time/CCT Total # of Minutes Spent Total Time Spent with Patient: Total time spent is greater than 50% in coordination of care (as documented) at patient's floor/unit and/or counseling patient: Coding Level of Care Code 95062 SUB INP/OBS CARE 3/50MIN Diagnoses DKA (diabetic ketoacidosis) E10.10 Diabetes mellitus complication detail: without coma Diabetes mellitus type: type 1 Vomiting R11.2 Nausea presence: with nausea Vomiting type: unspecified Dialysis patient Z99.2 ESRD (end stage renal disease) N18.6 Depression F33.9 Active/Remission status: remission status unspecified Depression Type: major depressive disorder Major depression recurrence: recurrent Hypertension I10 Hypertension type: unspecified (1) DKA (diabetic ketoacidosis) Diabetes mellitus complication detail: without coma Diabetes mellitus type: type 1 Qualified Code(s): E10.10 - Type 1 diabetes mellitus with ketoacidosis without coma (2) Vomiting Nausea presence: with nausea Vomiting type: unspecified Qualified Code(s): R11.2 - Nausea with vomiting, unspecified (5) Depression Active/Remission status: remission status unspecified Depression Type: major depressive disorder Major depression recurrence: recurrent Qualified Code(s): F33.9 - Major depressive disorder, recurrent, unspecified (6) Hypertension Hypertension type: unspecified Qualified Code(s): I10 - Essential (primary) hypertension
[2022-08-03] MEDS: amLODIPine BESYLATE 5 MG TAB PO SCH (08:27)
[2022-08-03] MEDS: SERTRALINE HCL 100 MG TABLET PO SCH (08:27)
[2022-08-03] MEDS: carvediloL 25 MG TAB PO SCH (08:27)
[2022-08-03] MEDS: buPROPion HCl 100 MG TABLET PO SCH (08:28)
[2022-08-03] MEDS: PANTOprazole 40 MG in SYRINGE 0 ML IV SCH (08:29)
[2022-08-03] MEDS: SERTRALINE HCL 50 MG TABLET PO SCH (08:29)
[2022-08-03] MEDS: HEPARIN SOD 5,000 UNIT/0.5 ML VIAL SQ SCH (08:29)
[2022-08-03] MEDS: INSULIN ASPART PER UNIT CHARGE SC SCH ×2 (08:34→12:37)
[2022-08-03] MEDS ORDERED: LANTUS PER UNIT CHARGE SQ SCH (09:15)
--- NOTE | 2022-08-03 09:15 | Nephrology Progress Note ---
Date of Service August 03, 2022 Assessment & Plan (1) ESRD (end stage renal disease): Plan: Patient with ESRD on dialysis Thursday. He missed his outpatient dialysis yesterday. Electrolytes are stable but creatinine and BUN are high. He tolerated dialysis well yesterday, target UF of 2 L. Next dialysis will be Thursday. (2) Hypertension: Plan: Blood pressure is above target. We will add hydralazine 25 mg 3 times daily. Admission and Anticipated Discharge Date Admission Date: August 01, 2022 Subjective Seen for ESRD. He feels better today. Vomiting is subsided. Blood pressure still high. Review of Systems Review of Systems: All other systems were reviewed and negative except as noted in HPI Physical Exam Physical Exam: General exam: Appears comfortable, no acute distress HEENT: Pupils are equal and reactive to light Neck: No JVD, neck is supple trachea is midline Respiratory system: Clear breath sounds bilaterally. Gastrointestinal: Abdomen is soft, non distended, non tender, bowel sounds are present CVS: Regular rate and rhythm. No murmurs, rubs or gallops Musculoskeletal: No joint or muscle tenderness Extremities: Non tender, no edema, peripheral pulses are present Neuro: Oriented, no tremors, no focal neurological deficits Skin: No rashes Results & Data ([facility]) Vital Signs (Past 12 Hours) Vital Signs Temp Pulse Resp BP Pulse Ox O2 Del Method 08/03/22 07:28 36.6 C 75 18 194/82 H 96 Room Air Laboratory Results 08/02/22 08:54 08/02/22 08:54 Phosphorus 4.0 (2) Hypertension Hypertension type: unspecified Qualified Code(s): I10 - Essential (primary) hypertension
[2022-08-03] MEDS: hydrALAZINE HCL 25 MG TAB PO SCH ×2 (09:30→12:43)
--- NOTE | 2022-08-03 12:19 | Discharge Summary ---
Date of Service August 03, 2022 Admission HPI Per Admitting Provider Jorge Alberto De Los Santos is a 51-year-old male with history of end-stage renal disease on hemodialysis q. Thursday/Thursday/Thursday, diabetes, coronary artery disease, hypertension presenting with intractable nausea and vomiting for past 48 hours. Patient reports persistent nausea ongoing for the last 48 hours. He has vomited numerous times. Patient reports limited intake during this time and difficulty taking her medica tions. Denies abdominal pain, distention, shortness of breath. Denies fever. Patient is an uric. Last full dialysis treatment was Thursday without difficulty. He denies recent travel or sick contacts. Presently with ongoing nausea. Vomited several times during my encounter. Otherwise no additional complaints. Principal Diagnosis DKA Discharge Exam General: He is awake alert and oriented. Able to answer questions appropriately and follow commands Skin: warm, dry, intact, no rashes or lesions HEENT: NC/AT, PERRL, EOMI, anicteric sclera, conjunctiva without injection, external ear normal to inspection and nontender, nares patent, moist mucous membranes, dentition intact, no oropharyngeal lesions, neck supple, trachea midline, no LAD, no thyromegaly, no JVD Heart: +S1/S2, regular, no m/r/g Lungs: equal air entry bilaterally, no rales/rhonchi/wheezes Abd: +BS, soft, NT/ND, no masses/organomegaly/ascites Ext: warm, 2+ pulses in UE/LE bilaterally, no clubbing/cyanosis or edema, AV fistula left upper extremity with palpable thrill Neuro: nonfocal, patient AA&O x 4, speech intact, no facial droop, moving all extremities on command with equal strength 5/5 Discharge Data Allergies Allergy/AdvReac Type Severity Reaction Status Date / Time shellfish derived Allergy Severe anaphylaxis Verified 08/01/22 09:01 codeine Allergy Intermediate Hives Verified 08/01/22 09:01 promethazine Allergy Intermediate itchy/hives Verified 08/01/22 09:01 Consultations 08/01/22 09:19 ED Decision to Admit Stat 08/01/22 09:39 Consult Nephrology Routine Diabetes Follow up Diabetes Follow-up Needed for HgbA1c >9% Hospital Course (1) DKA (diabetic ketoacidosis): DKA in a 51 yo male with diabetes and severe nausea and vomiting. Appears patient was not complaint with checking closely his blood sugar at home, as patient admits to this in the days prior to this admission. Patient was counselled on checking his blood sugar and taking his insulin as prescribed. He was treated with IVF and Iv insulin drip. He anion gap closed and retarted his insulin glargine as well as his diet Patient tolerated his diet and his symptoms improved. (2) Vomiting: place anti nausea medication likely secondary to his DKA resolved (3) Dialysis patient: Patient is an ESRD patient. received dialysis on Thursday. He will return to [facility] schedule (4) ESRD (end stage renal disease): as above (5) Depression: will resume home meds (6) Hypertension: restarted his home meds. Added hydralzine due to his elevated blood pressure. This may be due to increased volume of fluids due to his DKA. will recommend that ths may be tapered off if his blood pressure decreaes to the point that he becomes symptomatic. Patient will be placed on a low dose of hydralazine 10 mg PO TID. Explained to patient that he will need to monitor his nausea and vomiting, as this medicine can lead to rebound hypertension if not tapered slowly Total Time Total Time Spent Total Time Spent (In Minutes): 60 Discharge Plan Discharge Items Patient Disposition: Home - Self-Care Reason For Visit: HIGH BLOOD SUGAR,NAUSEA,VOMITING Discharge Diagnosis: diabetic ketoacidosis Condition on Discharge: Fair Activity: Resume your previous activity Non-emergency contact: Primary Care Provider Call non-emergency contact if: you have any medication questions Follow-up/Referrals: Genet Cool MD [Primary Care Provider] - 08/11/22 1:00 pm (APPOINTMENT WITH DR ALCALA) Diet: Carb Count or DM1 and Dialysis Renal Addtl Attending Provider Instructions: You were found to be in Diabetic ketoacidosis. This occurs when your blood sugar is elevated and overtime, yur body goes into an acidotic state due to the inability to metabolize the glucose. This then led to your nausea and vomiting. Will recommend we closely monitor your blood sugars at home to prevent this from occurring. Please followup with your PCP in 1-2 weeks. Please go to your dialysis session tomorrow. You are also going to start on hydralazine three times a day as your blood pressure has been elevated. If your blood pressure improves after dialysis, then your head start coordinator or PCP may consider slowly tapering you off this medicine. Stopping hydralazine cold turkey could lead to rebound high blood pressure. If your head start coordinator and PC agree to keep this salvage determiner, please keep in mind when you get severe nausea that rebound hypertension is a strong possibilty due to missing a dose of this medicine. So please return to the hospital if your nausea returns Pending Studies at Discharge: No Stand-Alone Forms: My [facility] 1EQ, Smoking Cessation Medications and DC Order Prescriptions: New hydralazine 10 mg tablet 10 mg PO TID Qty: 90 0RF Continued prochlorperazine maleate [Compazine] 5 mg tablet 5 mg PO BID PRN (Reason: Nausea) acetaminophen 325 mg capsule 650 mg PO Q4H PRN (Reason: Pain (Scale Score 1-3)) lorazepam 0.5 mg tablet 0.5 mg PO Q6H PRN (Reason: Anxiety) Qty: 60 0RF (DME) pen needle, diabetic [BD Ultra-Fine Annalise Pen Needle] 32 gauge x 5/32" needle See Rx Instructions .Route Qty: 500 3RF Rx Instructions: Use 5 per day with insulin injections atorvastatin 10 mg tablet 10 mg PO QAM Qty: 90 1RF (DME) Contour Next Test Strips Strip See Rx Instructions .Route Qty: 100 3RF Rx Instructions: check blood sugar at least once a day losartan 100 mg tablet 100 mg PO QAM Qty: 90 3RF carvedilol 25 mg tablet 50 mg PO BID Rx Instructions: TAKE THIS MEDICATION WITH FOOD melatonin 3 mg tablet 3 mg PO HS PRN (Reason: Sleep) insulin aspart U-100 [Novolog FlexPen U-100 Insulin] 100 unit/mL (3 mL) insulin pen 5 unit SUBCUT TIDM PRN (Reason: sliding scale) Qty: 15 5RF Rx Instructions: Use per sliding scale. 1 unit for every 12 grams of carb. Correction Factor 1 unit per 30mg/dL above goal range. MDD 40 units daily. sertraline 100 mg tablet 100 mg PO QAM Rx Instructions: TOTAL DOSE 125 MG--TAKES WITH 25 MG TAB. sertraline 25 mg tablet 25 mg PO QAM Rx Instructions: TOTAL DOSE 125 MG--TAKES WITH 100 MG TAB. mirtazapine 7.5 mg tablet 7.5 mg PO HS Velphoro 500 mg tablet,chewable 1,000 mg PO TIDM amlodipine 10 mg tablet 10 mg PO QAM ondansetron HCl 4 mg tablet 8 mg PO Q4 PRN (Reason: nausea or vomiting) cholecalciferol (vitamin D3) [Vitamin D3] 50 mcg (2,000 unit) capsule 50 mcg PO QAM bupropion HCl 100 mg tablet 100 mg PO QAM pantoprazole 40 mg tablet,delayed release (DR/EC) 40 mg PO BIDM insulin glargine [Basaglar KwikPen U-100 Insulin] 100 unit/mL (3 mL) insulin pen 16 unit SUBCUT QAM Discharge Orders: Discharge Order (Routine); Ordered 08/03/22 Ordered By: Sami Dockery/Other Patient Handouts: Managing Type 1 Diabetes, Diabetes: Sick-Day Plan Admission Data Admit Date/Time: 08/01/22 09:44 Attending Provider: Sami Mckeon Admit Provider: Sami Mckeon Primary Care Provider: Genet Cool Other Providers: Sami Mckeon ; Lor Guadalupe ; Arcenio Ortiz ; Olga Chavez Japheth E. ; Abelino Cook ; Stephanie Yang Coding Level of Care Code HOSP INP/OBS DISCH >30 MIN Diagnoses DKA (diabetic ketoacidosis) E10.10 Diabetes mellitus complication detail: without coma Diabetes mellitus type: type 1 Vomiting R11.2 Nausea presence: with nausea Vomiting type: unspecified Dialysis patient Z99.2 ESRD (end stage renal disease) N18.6 Depression F33.9 Active/Remission status: remission status unspecified Depression Type: major depressive disorder Major depression recurrence: recurrent Hypertension I10 Hypertension type: unspecified
[2022-08-04] MEDS ORDERED: HEPARIN SOD (PORCINE) 1000 UNIT/ML IV ONE (07:00)
[2022-08-04] MEDS ORDERED: SODIUM CHLORIDE 0.9% 1000ML 1,000 ML IV PRN (07:00)
== END 2022-08-03 14:14 | disposition home or self-care (01) | DRG 637 ==
LOC: ED 07:18 → 3N 09:44
DX: F32.A Depression, unspecified; Z91.013 Allergy to seafood; E10.42 Type 1 diabetes mellitus with diabetic polyneuropathy; D72.829 Elevated white blood cell count, unspecified; Z99.2 Dependence on renal dialysis; N18.6 End stage renal disease; Z86.711 Personal history of pulmonary embolism; Z82.49 Family history of ischemic heart disease and other diseases of the circulatory system; E10.22 Type 1 diabetes mellitus with diabetic chronic kidney disease; E10.319 Type 1 diabetes mellitus with unspecified diabetic retinopathy without macular edema; I12.0 Hypertensive chronic kidney disease with stage 5 chronic kidney disease or end stage renal disease; K21.9 Gastro-esophageal reflux disease without esophagitis; E10.10 Type 1 diabetes mellitus with ketoacidosis without coma; E87.6 Hypokalemia; Z83.3 Family history of diabetes mellitus; Z88.5 Allergy status to narcotic agent; R42 Dizziness and giddiness; Z79.899 Other long term (current) drug therapy; Z91.199 Patient's noncompliance with other medical treatment and regimen due to unspecified reason; F41.9 Anxiety disorder, unspecified; I25.10 Atherosclerotic heart disease of native coronary artery without angina pectoris; E10.43 Type 1 diabetes mellitus with diabetic autonomic (poly)neuropathy; Z88.8 Allergy status to other drugs, medicaments and biological substances

== ENCOUNTER 2022-09-12 09:42 | Observation (INO) ==
[2022-09-12] MEDS ORDERED: METOCLOPRAMIDE HCL INJ 5 MG/ML 2 ML VIAL IV STA (09:59)
[2022-09-12] MEDS ORDERED: ONDANSETRON INJ 2 MG/ML 2 ML VIAL IV STA (09:59)
--- NOTE | 2022-09-12 10:01 | Emergency Department Note ---
Impression & Plan Abdominal pain, ESRD (end stage renal disease), HTN (hypertension) ED Provider Note NAME: JERARDO PEREZ AGE: 52 SEX: M : 1970 ARRIVES VIA: Walk-In INFORMANT: Patient ED PROVIDER(S): Obie Lancaster DO CHIEF COMPLAINT: abdominal pain HPI: Patient is a 52-year-old male with a past medical history of end-stage renal disease Thursday, Thursday, Thursday; CAD, chronic pleural effusion, hypertension and diabetes that presents to the ER for nausea, vomiting, and abdominal pain. Symptoms started earlier this morning around 6 AM. Has been unable to take any of his medications. Blood sugars have been running high. He denies any headache or change in vision. No chest pain or shortness of breath. Last dialysis was Thursday. No dysuria, urgency, or frequency. No other exacerbating or remitting factors. This feels exact like his previous episodes PAST MEDICAL HISTORY:See Below PAST SURGICAL HISTORY:See Below FAMILY HISTORY:See Below SOCIAL HISTORY:See Below HOME MEDICATIONS:See Below ALLERGIES:See Below VITALS:See Below PHYSICAL EXAMINATION: GENERAL: Sitting up in bed, alert, chronically ill-appearing, disheveled EYE EXAM: normal conjunctiva. OROPHARYNX:mucous membranes are dry NECK: supple, no nuchal rigidity, no adenopathy, non-tender LUNGS: Clear to auscultation. Normal chest wall mechanics HEART: no murmurs, S1 normal and S2 normal ABDOMEN: abdomen soft, non-tender, normo-active bowel sounds, no masses, no rebound or guarding. BACK: Back is symmetrical on inspection and there is no deformity, no midline tenderness, no CVA tenderness. UPPER EXTREMITIES: upper extremities are grossly normal. Fistula in left upper extremity with positive thrill and bruit LOWER EXTREMITIES: No pitting edema. NEURO EXAM: Normal sensorium, cranial nerves II-XII grossly intact, normal speech, no gross weakness of arms, no gross weakness of legs. MEDICAL DECISION MAKING: Patient is a 52-year-old male who presents the ER for above-stated complaint. IV was established blood work was obtained. External records were reviewed. Labs show no significant leukocytosis. No anemia. BMP with mild hyponatremia at 132. Creatinine at 7.4. Has not had dialysis since Thursday. Glucose was elevated at 422. Given 8 units of insulin and 500 cc of fluids and trended down to 239. Was given Reglan. Lipase is negative. COVID was negative. Patient was updated bedside. Did discuss with nephrology who recommended discussion with the hospitalist for admission and dialysis. Discussed with Dr. Guevara Loomis for further evaluation and management. Triage Nursing notes reviewed. Limited review of prior medical records performed Vital Signs: reviewed and remarkable for no significant abnormalities Differential diagnosis: Differential diagnoses includes but is not limited to gastritis, peptic ulcer disease, GERD, gallbladder disease, pancreatitis, small bowel obstruction, appendicitis, diverticulitis, hernia, urinary tract infection, torsion, [/ectopic (if female)], perforation, trauma, infectious. ER treatment provided: See below Diagnostics interpreted by me include EKG and cardiac monitoring as listed below: -Cardiac Monitoring: An order was placed for continuous cardiac monitoring. The monitor shows a rate of 70 with sinus rhythm. -ECG: none -Laboratory studies:Interpreted by me as stated above in MDM and shown below. 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 Lor Guadalupe; [facility]/[place]) GERD (gastroesophageal reflux disease) History of nephrolithiasis History of pulmonary embolism 11/2020; unk etiology; was on warfarin (taken off 05/2021) Hypertension Hypertensive emergency Hypertensive urgency Junctional rhythm Kidney stone on right side Lumbar radiculopathy Nausea & vomiting Palliative care encounter Personal history of diabetic foot ulcer Urolithiasis Surgical History H/O shoulder surgery RIGHT History of appendectomy History of cardiac cath 10/2018= no stents, no obstructive disease (at [facility]) History of cataract surgery History of esophagogastroduodenoscopy (EGD) (~03/08/20) History of hip surgery left HIP ARTHROSCOPY History of lithotripsy History of open reduction and internal fixation (ORIF) procedure right hip Nausea and vomiting after administration of anesthetic agent S/P arteriovenous (AV) fistula creation Family History Grandfather Myocardial infarction Grandfather (Maternal) Family history of diabetes mellitus Uncle Myocardial infarction Father Hypertension Mother Kidney stone Other No family history of adverse response to anesthesia Denies family history of Colon cancer Ovarian cancer Prostate cancer Breast cancer Social History Smoking Status: Never smoker Tobacco Type: Cigarettes Second Hand Exposure: No; Hx Alcohol Use: No Hx Substance Use: No Preferred Language: Citizen Of [place] Communication Ability: Effective Communication Ability Comment: PT CURRENTLY AT [facility] Visual Impairment: No Limitations Hearing Ability: Normal Physician President Required: No Beliefs That Will Affect Care: None marital status: Current Living Situation: Parent and Family Current Living Situation Comment: lives with parents. current occupational status: disabled How many Children do You have: 2 Feels Safe at Home: Yes Childhood Exposure to Second-Hand Smoke: Yes Dental Care, Regularly: No Physical Activity Frequency: 1-2 Times per Week Seatbelt Use: always Sunscreen Use: No Assistive Devices: Denture - Upper Allergies Allergies Allergy/AdvReac Type Severity Reaction Status Date / Time shellfish derived Allergy Severe anaphylaxis Verified 08/14/22 11:08 codeine Allergy Intermediate Hives Verified 08/14/22 11:08 promethazine Allergy Intermediate itchy/hives Verified 08/14/22 11:08 Home Meds Home Medications Medication Instructions Recorded Confirmed melatonin 3 mg tablet 3 mg PO HS PRN Sleep 09/05/20 08/06/22 acetaminophen 325 mg capsule 650 mg PO Q4H PRN Pain (Scale 09/28/20 08/06/22 Score 1-3) carvedilol 25 mg tablet 50 mg PO BID 10/01/20 08/06/22 cholecalciferol (vitamin D3) 50 50 mcg PO QAM 10/25/21 08/06/22 mcg (2,000 unit) capsule (Vitamin D3) mirtazapine 7.5 mg tablet 7.5 mg PO HS 12/29/21 08/06/22 sertraline 100 mg tablet 100 mg PO QAM 12/29/21 08/06/22 sertraline 25 mg tablet 25 mg PO QAM 12/29/21 08/06/22 sucroferric oxyhydroxide 500 mg 1,000 mg PO TIDM 12/29/21 08/06/22 chewable tablet (Velphoro) amlodipine 10 mg tablet 10 mg PO QAM 03/01/22 08/06/22 bupropion HCl 100 mg tablet 100 mg PO QAM 07/20/22 08/06/22 insulin glargine 100 unit/mL (3 17 unit subcut QAM 07/20/22 08/06/22 mL) subcutaneous pen (Basaglar KwikPen U-100 Insulin) pantoprazole 40 mg tablet,delayed 40 mg PO BIDM 07/20/22 08/06/22 release Previous Rx's Medication Instructions Recorded lorazepam 0.5 mg tablet 0.5 mg PO Q6H PRN Anxiety #60 tabs 03/27/21 insulin aspart U-100 100 unit/mL 5 unit (0.05 mL) subcut TIDM PRN 10/24/21 (3 mL) subcutaneous pen (Novolog sliding scale #15 mL FlexPen U-100 Insulin aspart) pen needle, diabetic 32 gauge x #500 ea 12/17/21" (BD Ultra-Fine Annalise Pen Needle) blood sugar diagnostic (Contour #100 ea 03/02/22 Next Test Strips) losartan 100 mg tablet 100 mg PO QAM #90 tabs 06/05/22 hydralazine 10 mg tablet 10 mg PO TID #90 tabs 08/03/22 atorvastatin 10 mg tablet 10 mg PO QAM #90 tabs 08/11/22 ondansetron HCl 4 mg tablet 8 mg PO Q4 PRN nausea or vomiting 08/14/22 #60 tabs prochlorperazine maleate 5 mg 5 mg PO BID PRN Nausea 30 days #60 08/14/22 tablet (Compazine) tabs Results & Data (ED) Vital Signs Vital Signs - 24 hr 09/12/22 09:52 09/12/22 10:16 09/12/22 10:00 Temperature 36.4 C L Temperature Source Temporal Artery Scan Pulse Rate 78 86 80 Pulse Rate from SpO2 Sensor Pulse Rhythm Regular Respiratory Rate 20 16 Respiratory Effort / Characteristics Non-Labored Respiratory Depth Normal Blood Pressure 170/88 H Blood Pressure Mean 115 Pulse Oximetry 98 96 Oxygen Delivery Method Room Air Room Air Oxygen Flow Rate Sepsis Recent Fever Within 48 Hours No Sepsis New/Unexplained Change in Mental Status N/A Sepsis Action Taken by Nursing No Action Required Oxygen Flow Rate - Titration Pulse Oximetry Post Tiitration 09/12/22 10:24 09/12/22 10:30 09/12/22 11:00 Temperature Temperature Source Pulse Rate 78 Pulse Rate from SpO2 Sensor 78 Pulse Rhythm Respiratory Rate 14 Respiratory Effort / Characteristics Respiratory Depth Blood Pressure 171/77 H 175/78 H Blood Pressure Mean 108 110 Pulse Oximetry 73 L 100 Oxygen Delivery Method Nasal Cannula Nasal Cannula Oxygen Flow Rate 0 2 Sepsis Recent Fever Within 48 Hours Sepsis New/Unexplained Change in Mental Status Sepsis Action Taken by Nursing Oxygen Flow Rate - Titration 2 Pulse Oximetry Post Tiitration 95 09/12/22 11:00 09/12/22 11:30 09/12/22 11:30 Temperature Temperature Source Pulse Rate 82 81 Pulse Rate from SpO2 Sensor 82 81 Pulse Rhythm Respiratory Rate 15 16 Respiratory Effort / Characteristics Respiratory Depth Blood Pressure 158/71 H Blood Pressure Mean 100 Pulse Oximetry 100 100 Oxygen Delivery Method Oxygen Flow Rate Sepsis Recent Fever Within 48 Hours Sepsis New/Unexplained Change in Mental Status Sepsis Action Taken by Nursing Oxygen Flow Rate - Titration Pulse Oximetry Post Tiitration 09/12/22 12:00 09/12/22 12:00 09/12/22 12:30 Temperature Temperature Source Pulse Rate 75 Pulse Rate from SpO2 Sensor 76 Pulse Rhythm Respiratory Rate 17 Respiratory Effort / Characteristics Respiratory Depth Blood Pressure 123/63 96/49 L Blood Pressure Mean 83 64 Pulse Oximetry 99 Oxygen Delivery Method Room Air Oxygen Flow Rate Sepsis Recent Fever Within 48 Hours Sepsis New/Unexplained Change in Mental Status Sepsis Action Taken by Nursing Oxygen Flow Rate - Titration Pulse Oximetry Post Tiitration 09/12/22 12:30 09/12/22 13:00 09/12/22 13:00 Temperature Temperature Source Pulse Rate 69 66 Pulse Rate from SpO2 Sensor 69 66 Pulse Rhythm Respiratory Rate 16 16 Respiratory Effort / Characteristics Respiratory Depth Blood Pressure 88/45 L Blood Pressure Mean 59 Pulse Oximetry 95 96 Oxygen Delivery Method Room Air Oxygen Flow Rate Sepsis Recent Fever Within 48 Hours Sepsis New/Unexplained Change in Mental Status Sepsis Action Taken by Nursing Oxygen Flow Rate - Titration Pulse Oximetry Post Tiitration 09/12/22 14:18 Temperature Temperature Source Pulse Rate 65 Pulse Rate from SpO2 Sensor Pulse Rhythm Respiratory Rate Respiratory Effort / Characteristics Respiratory Depth Blood Pressure Blood Pressure Mean Pulse Oximetry Oxygen Delivery Method Oxygen Flow Rate Sepsis Recent Fever Within 48 Hours Sepsis New/Unexplained Change in Mental Status Sepsis Action Taken by Nursing Oxygen Flow Rate - Titration Pulse Oximetry Post Tiitration Laboratory Data 09/12/22 10:05 09/12/22 10:05 Lab Results 09/12/22 09/12/22 09/12/22 Range/Units 09:57 10:02 10:05 WBC 8.11 (4.8-10.8) K/ul RBC 3.66 L (4.70-6.10) M/uL Hgb 12.0 L (14.0-18.0) g/dl Hct 35.9 L (42.0-52.0) % MCV 98.1 (80.0-100.0) fL MCH 32.8 (25.0-34.0) pg MCHC 33.4 (32.0-36.0) g/dL RDW Std Deviation 46.3 (36.4-46.3) fL RDW Coeff of Kami 12.9 (11.5-14.5) % Plt Count 276 (130-400) K/uL MPV 9.8 (9.4-12.4) fL Immature Gran % (Auto) 0.4 % Neut % (Auto) 76.6 % Lymph % (Auto) 16.3 % [place] % (Auto) 4.7 % Eos % (Auto) 1.1 % Baso % (Auto) 0.9 % Neut # (Auto) 6.22 (1.40-6.50) K/uL Lymph # (Auto) 1.32 (1.2-3.4) K/uL [place] # (Auto) 0.38 (0.11-0.59) K/uL Eos # (Auto) 0.09 (0-0.50) K/uL Baso # (Auto) 0.07 (0-0.2) K/uL Immature Gran # (Auto) 0.03 (0.01-0.20) K/uL Sodium (136-145) mmol/L Potassium (3.5-5.1) mmol/L Chloride (98-107) mmol/L Carbon Dioxide (21-32) mmol/L Anion Gap (3-11) BUN (6-23) mg/dl Creatinine (0.6-1.4) mg/dl Est Cr Clr Drug Dosing Est GFR ( Amer) ml/min Est GFR (Non-Af Amer) ml/min BUN/Creatinine Ratio (10-20) Glucose (70-99(Fasting)) mg/dl POC Glucose 410 H* 400 H* (70-99) mg/dl Calcium (8.6-10.3) mg/dl Total Bilirubin (0.2-1.0) mg/dl AST (13-39) U/L ALT (7-52) U/L Alkaline Phosphatase (34-104) U/L Total Protein (6.0-8.3) gm/dl Albumin (3.4-5.0) gm/dl Globulin (2.5-4.0) gm/dl Albumin/Globulin Ratio (0.9-2) Lipase (11-82) U/L SARS-CoV-2, RNA, NAAT (NEGATIVE) 09/12/22 09/12/22 09/12/22 Range/Units 10:05 11:17 12:08 WBC (4.8-10.8) K/ul RBC (4.70-6.10) M/uL Hgb (14.0-18.0) g/dl Hct (42.0-52.0) % MCV (80.0-100.0) fL MCH (25.0-34.0) pg MCHC (32.0-36.0) g/dL RDW Std Deviation (36.4-46.3) fL RDW Coeff of Kami (11.5-14.5) % Plt Count (130-400) K/uL MPV (9.4-12.4) fL Immature Gran % (Auto) % Neut % (Auto) % Lymph % (Auto) % [place] % (Auto) % Eos % (Auto) % Baso % (Auto) % Neut # (Auto) (1.40-6.50) K/uL Lymph # (Auto) (1.2-3.4) K/uL [place] # (Auto) (0.11-0.59) K/uL Eos # (Auto) (0-0.50) K/uL Baso # (Auto) (0-0.2) K/uL Immature Gran # (Auto) (0.01-0.20) K/uL Sodium 132 L (136-145) mmol/L Potassium 3.6 (3.5-5.1) mmol/L Chloride 86 L (98-107) mmol/L Carbon Dioxide 24 (21-32) mmol/L Anion Gap 22 H (3-11) BUN 59 H (6-23) mg/dl Creatinine 7.46 H* (0.6-1.4) mg/dl Est Cr Clr Drug Dosing Not Reportable Est GFR ( Amer) 8.8 ml/min Est GFR (Non-Af Amer) 7.6 ml/min BUN/Creatinine Ratio 7.9 L (10-20) Glucose 422 H* (70-99(Fasting)) mg/dl POC Glucose 301 H* 239 H (70-99) mg/dl Calcium 8.9 (8.6-10.3) mg/dl Total Bilirubin 0.8 (0.2-1.0) mg/dl AST 16 (13-39) U/L ALT 24 (7-52) U/L Alkaline Phosphatase 129 H (34-104) U/L Total Protein 7.4 (6.0-8.3) gm/dl Albumin 4.4 (3.4-5.0) gm/dl Globulin 3.0 (2.5-4.0) gm/dl Albumin/Globulin Ratio 1.5 (0.9-2) Lipase 20 (11-82) U/L SARS-CoV-2, RNA, NAAT (NEGATIVE) 09/12/22 Range/Units Unknown WBC (4.8-10.8) K/ul RBC (4.70-6.10) M/uL Hgb (14.0-18.0) g/dl Hct (42.0-52.0) % MCV (80.0-100.0) fL MCH (25.0-34.0) pg MCHC (32.0-36.0) g/dL RDW Std Deviation (36.4-46.3) fL RDW Coeff of Kami (11.5-14.5) % Plt Count (130-400) K/uL MPV (9.4-12.4) fL Immature Gran % (Auto) % Neut % (Auto) % Lymph % (Auto) % [place] % (Auto) % Eos % (Auto) % Baso % (Auto) % Neut # (Auto) (1.40-6.50) K/uL Lymph # (Auto) (1.2-3.4) K/uL [place] # (Auto) (0.11-0.59) K/uL Eos # (Auto) (0-0.50) K/uL Baso # (Auto) (0-0.2) K/uL Immature Gran # (Auto) (0.01-0.20) K/uL Sodium (136-145) mmol/L Potassium (3.5-5.1) mmol/L Chloride (98-107) mmol/L Carbon Dioxide (21-32) mmol/L Anion Gap (3-11) BUN (6-23) mg/dl Creatinine (0.6-1.4) mg/dl Est Cr Clr Drug Dosing Est GFR ( Amer) ml/min Est GFR (Non-Af Amer) ml/min BUN/Creatinine Ratio (10-20) Glucose (70-99(Fasting)) mg/dl POC Glucose (70-99) mg/dl Calcium (8.6-10.3) mg/dl Total Bilirubin (0.2-1.0) mg/dl AST (13-39) U/L ALT (7-52) U/L Alkaline Phosphatase (34-104) U/L Total Protein (6.0-8.3) gm/dl Albumin (3.4-5.0) gm/dl Globulin (2.5-4.0) gm/dl Albumin/Globulin Ratio (0.9-2) Lipase (11-82) U/L SARS-CoV-2, RNA, NAAT NEGATIVE (NEGATIVE) Administered Medications Discontinued Medications Amlodipine Besylate (Amlodipine Besylate 5 Mg Tab) 10 mg PO NOW ONE Stop: 09/12/22 10:18 Last Admin: 09/12/22 10:34 Dose: 10 mg Documented By: MERA Carvedilol (Carvedilol 25 Mg Tab) 25 mg PO NOW ONE Stop: 09/12/22 10:18 Last Admin: 09/12/22 10:34 Dose: 25 mg Documented By: MERA Sodium Chloride (Nss) 500 mls @ 999 mls/hr IV .Q31M ONE Stop: 09/12/22 10:47 Last Infusion: 09/12/22 11:50 Dose: 0 mls/hr Documented By: Admin: 09/12/22 10:34 Dose: 999 mls/hr Documented By: MERA Insulin Human Regular (Novolin-R Insulin Per Unit Charge) 8 units IV NOW STA Stop: 09/12/22 10:18 Last Admin: 09/12/22 10:30 Dose: 8 units Documented By: MERA Co-signed By: MILI Metoclopramide HCl (Metoclopramide Hcl Inj 5 Mg/Ml 2 Ml Vial) 10 mg IV NOW STA Stop: 09/12/22 10:00 Last Admin: 09/12/22 10:07 Dose: 10 mg Documented By: MERA Ondansetron HCl (Ondansetron Inj 2 Mg/Ml 2 Ml Vial) 4 mg IV NOW STA Stop: 09/12/22 10:00 Last Admin: 09/12/22 10:07 Dose: 4 mg Documented By: MERA Imaging Data Radiologist's Impression: Chest X-Ray 09/12/22 10:36 XR chest 1V portable CLINICAL HISTORY: Hypoxia. COMPARISON STUDY: Chest radiograph August 01, 2022. FINDINGS: There is no pneumothorax or pleural effusion. No consolidation is identified to suggest pneumonia. Cardiomegaly is unchanged. There is no evidence for pulmonary edema. IMPRESSION: No acute cardiopulmonary findings. Stable cardiomegaly. ACT 112: Negative or not required by law. Electronically signed by: Gabino Cool M.D. 09/12/2022 10:52 AM Discharge Plan Visit Data Chief Complaint: Vomiting Stated Complaint: NAUSEA, VOMITING ED Provider: Obie Lancaster Discharge Problem: Abdominal pain, ESRD (end stage renal disease), HTN (hypertension) Forms Stand Alone Forms: [employer] Prescriptions Prescriptions: No Action acetaminophen 325 mg capsule 650 mg PO Q4H PRN (Reason: Pain (Scale Score 1-3)) lorazepam 0.5 mg tablet 0.5 mg PO Q6H PRN (Reason: Anxiety) Qty: 60 0RF (DME) pen needle, diabetic [BD Ultra-Fine Annalise Pen Needle] 32 gauge x 5/32" needle See Rx Instructions .Route Qty: 500 3RF Rx Instructions: Use 5 per day with insulin injections (DME) Contour Next Test Strips Strip See Rx Instructions .Route Qty: 100 3RF Rx Instructions: check blood sugar at least once a day losartan 100 mg tablet 100 mg PO QAM Qty: 90 3RF atorvastatin 10 mg tablet 10 mg PO QAM Qty: 90 1RF carvedilol 25 mg tablet 50 mg PO BID Rx Instructions: TAKE THIS MEDICATION WITH FOOD melatonin 3 mg tablet 3 mg PO HS PRN (Reason: Sleep) insulin aspart U-100 [Novolog FlexPen U-100 Insulin] 100 unit/mL (3 mL) insulin pen 5 unit SUBCUT TIDM PRN (Reason: sliding scale) Qty: 15 5RF Rx Instructions: Use per sliding scale. 1 unit for every 8 grams of carb. Correction Factor 1 unit per 40mg/dL above goal range. MDD 40 units daily. prochlorperazine maleate [Compazine] 5 mg tablet 5 mg PO BID PRN (Reason: Nausea) 30 Days Qty: 60 1RF ondansetron HCl 4 mg tablet 8 mg PO Q4 PRN (Reason: nausea or vomiting) Qty: 60 2RF sertraline 100 mg tablet 100 mg PO QAM Rx Instructions: TOTAL DOSE 125 MG--TAKES WITH 25 MG TAB. sertraline 25 mg tablet 25 mg PO QAM Rx Instructions: TOTAL DOSE 125 MG--TAKES WITH 100 MG TAB. mirtazapine 7.5 mg tablet 7.5 mg PO HS Velphoro 500 mg tablet,chewable 1,000 mg PO TIDM amlodipine 10 mg tablet 10 mg PO QAM hydralazine 10 mg tablet 10 mg PO TID Qty: 90 0RF cholecalciferol (vitamin D3) [Vitamin D3] 50 mcg (2,000 unit) capsule 50 mcg PO QAM bupropion HCl 100 mg tablet 100 mg PO QAM pantoprazole 40 mg tablet,delayed release (DR/EC) 40 mg PO BIDM insulin glargine [Basaglar KwikPen U-100 Insulin] 100 unit/mL (3 mL) insulin pen 17 unit SUBCUT QAM Referrals Referrals: Genet Cool MD [Primary Care Provider] -
[2022-09-12] MEDS ORDERED: SODIUM CHLORIDE 0.9% 500 ML IV ONE (10:17)
[2022-09-12] MEDS ORDERED: carvediloL 25 MG TAB PO ONE (10:17)
[2022-09-12] MEDS ORDERED: NovoLIN-R INSULIN PER UNIT CHARGE IV STA (10:17)
[2022-09-12] MEDS ORDERED: amLODIPine BESYLATE 5 MG TAB PO ONE (10:17)
[2022-09-12 10:52] LABS: Basophils # (auto) 0.07 K/uL (0-0.2); Basophils % (auto) 0.9 %; Eosinophils # (auto) 0.09 K/uL (0-0.50); Eosinophils % (auto) 1.1 %; Hematocrit (blood only) 35.9 % (42.0-52.0); Immature Granulocytes # (auto) 0.03 K/uL (0.01-0.20); Immature Granulocytes % (auto) 0.4 %; Lymphocytes # (auto) 1.32 K/uL (1.2-3.4); Lymphocytes % (auto) 16.3 %; Mean Corpuscular Hemoglobin 32.8 pg (25.0-34.0); Mean Corpuscular Hgb Conc 33.4 g/dL (32.0-36.0); Mean Corpuscular Volume 98.1 fL (80.0-100.0); Mean Platelet Volume 9.8 fL (9.4-12.4); Monocytes # (auto) 0.38 K/uL (0.11-0.59); Monocytes % (auto) 4.7 %; Neutrophils # (auto) 6.22 K/uL (1.40-6.50); Neutrophils % (auto) 76.6 %; Platelet Count 276 K/uL (130-400); RDW Coefficient of Variation 12.9 % (11.5-14.5); RDW Standard Deviation 46.3 fL (36.4-46.3); Red Blood Count 3.66 M/uL (4.70-6.10); White Blood Count 8.11 K/ul (4.8-10.8)
--- NOTE | 2022-09-12 10:53 | XRay Report ---
XR chest 1V portable CLINICAL HISTORY: Hypoxia. COMPARISON STUDY: Chest radiograph August 01, 2022. FINDINGS: There is no pneumothorax or pleural effusion. No consolidation is identified to suggest pne umonia. Cardiomegaly is unchanged. There is no evidence for pulmonary edema. IMPRESSION: No acute cardiopulmonary findings. Stable cardiomegaly. ACT 112: Negative or not required by law. Electronically signed by: Gabino Cool M.D. 09/12/2022 10:52 AM
[2022-09-12 11:33] LABS: Alanine Aminotransferase 24 U/L (7-52); Albumin Globulin Ratio 1.5 (0.9-2); Albumin Level 4.4 gm/dl (3.4-5.0); Alkaline Phosphatase 129 U/L (34-104); Anion Gap 22 (3-11); Aspartate Aminotransferase 16 U/L (13-39); BUN Creatinine Ratio 7.9 (10-20); Bilirubin,Total 0.8 mg/dl (0.2-1.0); Blood Urea Nitrogen 59 mg/dl (6-23); Calcium 8.9 mg/dl (8.6-10.3); Carbon Dioxide 24 mmol/L (21-32); Chloride 86 mmol/L (98-107); Est GFR (African American) 8.8 ml/min; Est GFR (Non-African American) 7.6 ml/min; Glucose 422 mg/dl (70-99(Fasting)); Lipase 20 U/L (11-82); Potassium 3.6 mmol/L (3.5-5.1); Sodium 132 mmol/L (136-145); Total Protein 7.4 gm/dl (6.0-8.3)
[2022-09-12] MEDS ORDERED: PHARMACY GLYCEMIC MGMT CONSULT PRN (12:45)
--- NOTE | 2022-09-12 12:54 | History & Physical Report ---
Date of Service September 12, 2022 Assessment & Plan (1) Cyclical vomiting syndrome: Plan: Continue his usual regimen with Ondansetron 1st line, Compazine 2nd line for nausea or vomiting Will advance patient to clear liquids by request (2) Hypotension: Plan: Following his usual medications given in the ER. Will hold further anti- hypertensives at this time and re-introduce as able. 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, with long-term current use of insulin: Plan: Consult pharmacy for glycemic control during his admission (4) GERD (gastroesophageal reflux disease): Plan: Continue pantoprazole 40mg PO BID Plan VTE prophylaxis - consider starting if prolonged stay Diet - clear liquid, T1DM Disposition - observation status to med/surg Admission and Anticipated Discharge Date Admission Date: September 12, 2022 History of Present Illness Chief Complaint: Intractable nausea and vomiting Primary Care Provider: Genet Cool MD Jorge Alberto De Los Santos is a 52 year old male with T1DM and ESRD on dialysis well known to the service for repeated admissions with cyclic vomiting syndrome and gastroparesis who presents to the ER with intractable nausea and vomiting beginning this morning. He feels this is similar to his other occasions of cyclic vomiting syndrome / gastroparesis. He missed dialysis today and reports he was unable o take any of his oral medications but did take his lantus. He was therefore given some of his BP medications by the ER provider with amlodipine and carvedilol which subsequently caused hypotension with BP 88/45. Since he missed dialysis and not safe for him to go the whole weekend without this he was referred to medicine for admission and ongoing management. Allergies Allergy/AdvReac Type Severity Reaction Status Date / Time shellfish derived Allergy Severe anaphylaxis Verified 08/14/22 11:08 codeine Allergy Intermediate Hives Verified 08/14/22 11:08 promethazine Allergy Intermediate itchy/hives Verified 08/14/22 11:08 Home Medications Medication Instructions Recorded Confirmed Type melatonin 3 mg tablet 3 mg PO HS PRN Sleep 09/05/20 08/06/22 History acetaminophen 325 mg capsule 650 mg PO Q4H PRN Pain (Scale 09/28/20 08/06/22 His tory Score 1-3) carvedilol 25 mg tablet 50 mg PO BID 10/01/20 08/06/22 History lorazepam 0.5 mg tablet 0.5 mg PO Q6H PRN Anxiety #60 tabs 03/27/21 08/06/22 Rx insulin aspart U-100 100 unit/mL 5 unit (0.05 mL) subcut TIDM PRN 10/24/21 08/06/22 Rx (3 mL) subcutaneous pen (Novolog sliding scale #15 mL FlexPen U-100 Insulin aspart) cholecalciferol (vitamin D3) 50 50 mcg PO QAM 10/25/21 08/06/22 History mcg (2,000 unit) capsule (Vitamin D3) pen needle, diabetic 32 gauge x #500 ea 12/17/21 08/06/22 Rx " (BD Ultra-Fine Annalise Pen Needle) mirtazapine 7.5 mg tablet 7.5 mg PO HS 12/29/21 08/06/22 History sertraline 100 mg tablet 100 mg PO QAM 12/29/21 08/06/22 History sertraline 25 mg tablet 25 mg PO QAM 12/29/21 08/06/22 History sucroferric oxyhydroxide 500 mg 1,000 mg PO TIDM 12/29/21 08/06/22 History chewable tablet (Velphoro) amlodipine 10 mg tablet 10 mg PO QAM 03/01/22 08/06/22 History blood sugar diagnostic (Contour #100 ea 03/02/22 08/06/22 Rx Next Test Strips) losartan 100 mg tablet 100 mg PO QAM #90 tabs 06/05/22 08/06/22 Rx bupropion HCl 100 mg tablet 100 mg PO QAM 07/20/22 08/06/22 History insulin glargine 100 unit/mL (3 17 unit subcut QAM 07/20/22 08/06/22 History mL) subcutaneous pen (Basaglar KwikPen U-100 Insulin) pantoprazole 40 mg tablet,delayed 40 mg PO BIDM 07/20/22 08/06/22 History release hydralazine 10 mg tablet 10 mg PO TID #90 tabs 08/03/22 08/06/22 Rx atorvastatin 10 mg tablet 10 mg PO QAM #90 tabs 08/11/22 Rx ondansetron HCl 4 mg tablet 8 mg PO Q4 PRN nausea or vomiting 08/14/22 08/14/22 Rx #60 tabs prochlorperazine maleate 5 mg 5 mg PO BID PRN Nausea 30 days #60 08/14/22 08/14/22 Rx tablet (Compazine) tabs Past Med/Surg History Medical History (Updated 09/12/22 @ 22:27 by Guevara Loomis MD) Anemia of chronic disease Anxiety AV fistula left upper arm CAD (coronary artery disease) mild, non-obstructive CAD per 10/2018 cardiac cath> [facility] Chronic pleural effusion PleurX catheter placed 01/24/21--removed 07/2021 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 Lor Guadalupe; [facility]) GERD (gastroesophageal reflux disease) History of nephrolithiasis History of pulmonary embolism 11/2020; unk etiology; was on warfarin (taken off 05/2021) Hypertension Hypertensive emergency Hypertensive urgency Junctional rhythm Kidney stone on right side Lumbar radiculopathy Nausea & vomiting Palliative care encounter Personal history of diabetic foot ulcer Urolithiasis Surgical History H/O shoulder surgery RIGHT History of appendectomy History of cardiac cath 10/2018= no stents, no obstructive disease (at [facility]) History of cataract surgery History of esophagogastroduodenoscopy (EGD) (~03/08/20) History of hip surgery left HIP ARTHROSCOPY History of lithotripsy History of open reduction and internal fixation (ORIF) procedure right hip Nausea and vomiting after administration of anesthetic agent S/P arteriovenous (AV) fistula creation Family History Grandfather Myocardial infarction Grandfather (Maternal) Family history of diabetes mellitus Uncle Myocardial infarction Father Hypertension Mother Kidney stone Other No family history of adverse response to anesthesia Denies family history of Colon cancer Ovarian cancer Prostate cancer Breast cancer Social History Smoking Status: Never smoker Tobacco Type: Cigarettes Second Hand Exposure: No; Hx Alcohol Use: No Hx Substance Use: No Preferred Language: Argentine Communication Ability: Effective Communication Ability Comment: PT CURRENTLY AT [facility] Visual Impairment: No Limitations Hearing Ability: Normal Conditioning Coach Required: No Beliefs That Will Affect Care: None marital status: Current Living Situation: Family Current Living Situation Comment: single story home with parents current occupational status: disabled How many Children do You have: 2 Other Information That Helps Us Care for You: No Feels Safe at Home: Yes Safety Concerns: Feels Safe At This Time Childhood Exposure to Second-Hand Smoke: Yes Dental Care, Regularly: No Physical Activity Frequency: 1-2 Times per Week Seatbelt Use: always Sunscreen Use: No Assistive Devices: Denture - Upper and Glasses Review of Systems Review of Systems: All systems reviewed & are unremarkable except as noted in HPI & below Physical Exam Constitutional: well developed and + acute distress; + not well nourished ENMT: external ear and nose normal, oropharynx normal Respiratory: normal respiratory effort, lungs clear to auscultation Cardiovascular: RRR, no murmur, no edema Gastrointestinal (Abdomen): Inspection/Auscultation: abdomen normal to inspection; abdomen not distended Percussion/Palpation: + abdomen tender (generalized) and abdomen soft; no guarding and abdomen not rigid Musculoskeletal: no cyanosis or clubbing, extremities motor strength 5/5 Skin: no rashes, warm and dry Neurologic: moves all extremities and awake; not confused Psychiatric: A+Ox3, euthymic affect Results & Data Results & Data Vital Signs (Past 12 Hours) Vital Signs Temp Pulse Resp BP Pulse Ox O2 Del Method O2 Flow Rate 09/12/22 12:00 75 17 99 Room Air 09/12/22 12:00 123/63 09/12/22 11:30 81 16 100 09/12/22 11:30 158/71 H 09/12/22 11:00 82 15 100 09/12/22 11:00 175/78 H 09/12/22 10:30 78 14 171/77 H 100 Nasal Cannula 2 09/12/22 10:24 73 L Nasal Cannula 0 09/12/22 10:00 80 16 96 Room Air 09/12/22 10:16 86 09/12/22 09:52 36.4 C L 78 20 170/88 H 98 Room Air Laboratory Results Abnormal lab results 09/12/22 09/12/22 09/12/22 Range/Units 09:57 10:02 10:05 RBC 3.66 L (4.70-6.10) M/uL Hgb 12.0 L (14.0-18.0) g/dl Hct 35.9 L (42.0-52.0) % Sodium (136-145) mmol/L Chloride (98-107) mmol/L Anion Gap (3-11) BUN (6-23) mg/dl Creatinine (0.6-1.4) mg/dl BUN/Creatinine Ratio (10-20) Glucose (70-99(Fasting)) mg/dl POC Glucose 410 H* 400 H* (70-99) mg/dl Alkaline Phosphatase (34-104) U/L 09/12/22 09/12/22 09/12/22 Range/Units 10:05 11:17 12:08 RBC (4.70-6.10) M/uL Hgb (14.0-18.0) g/dl Hct (42.0-52.0) % Sodium 132 L (136-145) mmol/L Chloride 86 L (98-107) mmol/L Anion Gap 22 H (3-11) BUN 59 H (6-23) mg/dl Creatinine 7.46 H* (0.6-1.4) mg/dl BUN/Creatinine Ratio 7.9 L (10-20) Glucose 422 H* (70-99(Fasting)) mg/dl POC Glucose 301 H* 239 H (70-99) mg/dl Alkaline Phosphatase 129 H (34-104) U/L Diagnostic Findings XR chest 1V portable CLINICAL HISTORY: Hypoxia. COMPARISON STUDY: Chest radiograph August 01, 2022. FINDINGS: There is no pneumothorax or pleural effusion. No consolidation is identified to suggest pneumonia. Cardiomegaly is unchanged. There is no evidence for pulmonary edema. IMPRESSION: No acute cardiopulmonary findings. Stable cardiomegaly. Medications Administered ER Medications Given: Metoclopramide 10mg IV Ondansetron 4mg IV Insulin 8 units IV now NSS 500ml bolus Amlodipine 10mg PO Carvedilol 25mg PO Code Status & VTE Plan VTE Prophylaxis Plan VTE Prophylaxis will be ordered: No Reason for no VTE drug order: Treatment not indicated PG Care Time/CCT Total # of Minutes Spent Total Time Spent with Patient: Total time spent is greater than 50% in coordination of care (as documented) at patient's floor/unit and/or counseling patient: Coding Level of Care Code 11101 INT INP/OBS CARE MIN Diagnoses Cyclical vomiting syndrome R11.15 Hypotension I95.9 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
[2022-09-12] MEDS ORDERED: CARBOHYDRATES FOR HYPOGLYCEMIA PO PRN (13:30)
[2022-09-12] MEDS ORDERED: DEXTROSE 50% 50 ML SYRINGE IV PRN (13:30)
[2022-09-12] MEDS ORDERED: GLUCOSE 40% GEL 15 GM TUBE PO PRN (13:30)
[2022-09-12] MEDS ORDERED: GLUCOSE 10 TAB/TUBE PO PRN (13:30)
[2022-09-12] MEDS ORDERED: GLUCAGON FOR INJ 1 MG VIAL IM PRN (13:30)
--- NOTE | 2022-09-12 15:21 | Communication Note ---
Date of Service: September 12, 2022 Pt seen and evaluated in ER. VS, labs, clinical hx reviewed. D/t pt condition (hypotension, for now acceptable renal labs) and d/t renal dialysis nurse staffing, will plan to do HD tomorrow AM, pending clinical status update. Pt not able to go full weekend w/o HD, at least not w/o inpatient monitoring. Full consult to follow.
[2022-09-12] MEDS ORDERED: PROCHLORPERAZINE MALEATE 5 MG TAB PO PRN (15:48)
[2022-09-12] MEDS ORDERED: ONDANSETRON INJ 2 MG/ML 2 ML VIAL IV PRN (15:48)
[2022-09-12] MEDS ORDERED: LORazepam 0.5 MG TAB PO PRN (15:48)
--- NOTE | 2022-09-12 16:48 | Electrocardiogram Report ---
Test Reason : Blood Pressure : / mmHG Vent. Rate : 077 BPM Atrial Rate : 077 BPM P-R Int : 216 ms QRS Dur : 106 ms QT Int : 446 ms P-R-T Axes : 021 -22 039 degrees QTc Int : 504 ms Sinus rhythm with 1st degree A-V block Left atrial enlargement Prolonged QT Left ventricular hypertrophy with repolarization abnormality Abnormal ECG When compared with ECG of 04-AUG-2022 11:11, AR interval has increased Confirmed by Len Ruvalcaba ([id number]) on 09/12/2022 4:47:52 PM Referred By: REFERRED SELF Confirmed By:Len Ruvalcaba
[2022-09-12] MEDS: INSULIN ASPART PER UNIT CHARGE SC SCH ×3 (17:53→23:48)
[2022-09-12] MEDS: PANTOprazole 40 MG TAB PO SCH (17:53)
--- NOTE | 2022-09-12 19:15 | Nephrology Consultation ---
Date of Consultation September 12, 2022 Assessment & Plan (1) Dialysis patient: ESRD on MWF HD via AVF. TOday is his dialysis day. His chemistries are acceptable and do not require urgent dialysis. His blood pr essure if anything is low. -anemia meds to be given on hd -will evaluate in AM and tentatively plan HD at that time -no reported issues w/ AVF Appreciate consultation; will follow with you. History of Present Illness Reason for Consultation: ESRD on dialysis Requesting Physician: Guveara Loomis Attending Physician: Guevara Loomis MD History of Present Illness 52 y/o M whom I'm asked to see for ESRD on dialysis is under observation today after presenting with uncontrolled n/v. He came to dialysis this AM but felt so poorly he opted not to enter the building to start tx. PMH includes cyclic vomiting syndrome requiring frequent hospital admissions, DM1 with proliferative retinopathy, ESRD on MWF HD via AVF, nonocclusive CAD, HTN w/ labile blood pressures, autonomic dysfunction, bilateral nephrolithiasis. A few years back he had a chronic pleural effusion requiring a pleurex for several months. Remote hx of PE no longer on AC; hx of Covid 07/2021. He kimberly lyzes under my care at [facility] and does not miss treatments. His blood sugars have been quite high; his blood pressure has been realtively low: he has received antiemetics and 1/2 L NS. He believes GI issues came on after eating bad sandwich yesterday. No f/c, no diarrhea or abdominal pain; no sob or cough; no edema; no falls; no CHANEL or acute visual changes; he is anuric. By the time I evaluate him in midafternoon today he felt somewhat improved but still ill. Allergies Allergy/AdvReac Type Severity Reaction Status Date / Time shellfish derived Allergy Severe anaphylaxis Verified 08/14/22 11:08 codeine Allergy Intermediate Hives Verified 08/14/22 11:08 promethazine Allergy Intermediate itchy/hives Verified 08/14/22 11:08 Home Medications Medication Instructions Recorded Confirmed Type melatonin 3 mg tablet 3 mg PO HS PRN Sleep 09/05/20 08/06/22 History acetaminophen 325 mg capsule 650 mg PO Q4H PRN Pain (Scale 09/28/20 08/06/22 History Score 1-3) carvedilol 25 mg tablet 50 mg PO BID 10/01/20 08/06/22 History lorazepam 0.5 mg tablet 0.5 mg PO Q6H PRN Anxiety #60 tabs 03/27/21 08/06/22 Rx insulin aspart U-100 100 unit/mL 5 unit (0.05 mL) subcut TIDM PRN 10/24/21 08/06/22 Rx (3 mL) subcutaneous pen (Novolog sliding scale #15 mL FlexPen U-100 Insulin aspart) cholecalciferol (vitamin D3) 50 50 mcg PO QAM 10/25/21 08/06/22 History mcg (2,000 unit) capsule (Vitamin D3) pen needle, diabetic 32 gauge x #500 ea 12/17/21 08/06/22 Rx " (BD Ultra-Fine Annalise Pen Needle) mirtazapine 7.5 mg tablet 7.5 mg PO HS 12/29/21 08/06/22 History sertraline 100 mg tablet 100 mg PO QAM 12/29/21 08/06/22 History sertraline 25 mg tablet 25 mg PO QAM 12/29/21 08/06/22 History sucroferric oxyhydroxide 500 mg 1,000 mg PO TIDM 12/29/21 08/06/22 History chewable tablet (Velphoro) amlodipine 10 mg tablet 10 mg PO QAM 03/01/22 08/06/22 History blood sugar diagnostic (Contour #100 ea 03/02/22 08/06/22 Rx Next Test Strips) losartan 100 mg tablet 100 mg PO QAM #90 tabs 06/05/22 08/06/22 Rx bupropion HCl 100 mg tablet 100 mg PO QAM 07/20/22 08/06/22 History insulin glargine 100 unit/mL (3 17 unit subcut QAM 07/20/22 08/06/22 History mL) subcutaneous pen (Basaglar KwikPen U-100 Insulin) pantoprazole 40 mg tablet,delayed 40 mg PO BIDM 07/20/22 08/06/22 History release hydralazine 10 mg tablet 10 mg PO TID #90 tabs 08/03/22 08/06/22 Rx atorvastatin 10 mg tablet 10 mg PO QAM #90 tabs 08/11/22 Rx ondansetron HCl 4 mg tablet 8 mg PO Q4 PRN nausea or vomiting 08/14/22 08/14/22 Rx #60 tabs prochlorperazine maleate 5 mg 5 mg PO BID PRN Nausea 30 days #60 08/14/22 08/14/22 Rx tablet (Compazine) tabs Patient History Medical History Anemia of chronic disease Anxiety AV fistula left upper arm CAD (coronary artery disease) mild, non-obstructive CAD per 10/2018 cardiac cath> [facility] Chronic pleural effusion PleurX catheter placed 01/24/21--removed 07/2021 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 Lor Guadalupe; [facility]) GERD (gastroesophageal reflux disease) History of nephrolithiasis History of pulmonary embolism 11/2020; unk etiology; was on warfarin (taken off 05/2021) Hypertension Hypertensive emergency Hypertensive urgency Junctional rhythm Kidney stone on right side Lumbar radiculopathy Nausea & vomiting Palliative care encounter Personal history of diabetic foot ulcer Urolithiasis Surgical History H/O shoulder surgery RIGHT History of appendectomy History of cardiac cath 10/2018= no stents, no obstructive disease (at [facility]) History of cataract surgery History of esophagogastroduodenoscopy (EGD) (~03/08/20) History of hip surgery left HIP ARTHROSCOPY History of lithotripsy History of open reduction and internal fixation (ORIF) procedure right hip Nausea and vomiting after administration of anesthetic agent S/P arteriovenous (AV) fistula creation Family History Grandfather Myocardial infarction Grandfather (Maternal) Family history of diabetes mellitus Uncle Myocardial infarction Father Hypertension Mother Kidney stone Other No family history of adverse response to anesthesia Denies family history of Colon cancer Ovarian cancer Prostate cancer Breast cancer Social History Smoking Status: Never smoker Tobacco Type: Cigarettes Second Hand Exposure: No; Hx Alcohol Use: No Hx Substance Use: No Preferred Language: Pashto Communication Ability: Effective Communication Ability Comment: PT CURRENTLY AT [facility] Visual Impairment: No Limitations Hearing Ability: Normal Fiscal Services Manager Required: No Beliefs That Will Affect Care: None marital status: Current Living Situation: Family Current Living Situation Comment: single story home with parents current occupational status: disabled How many Children do You have: 2 Other Information That Helps Us Care for You: No Feels Safe at Home: Yes Safety Concerns: Feels Safe At This Time Childhood Exposure to Second-Hand Smoke: Yes Dental Care, Regularly: No Physical Activity Frequency: 1-2 Times per Week Seatbelt Use: always Sunscreen Use: No Assistive Devices: Denture - Upper and Glasses Review of Systems Review of Systems: All systems reviewed & are unremarkable except as noted in HPI & below Physical Exam Constitutional: well developed, well nourished, + frail appearing (still feels somewhat ill), + disheveled and cooperative; no acute distress Eyes: EOM intact bilaterally ENMT: Ears: no external ear abnormality Nose: no external nose abnormality Mouth: + dry oral mucous membranes Neck: no nuchal rigidity Respiratory: normal respiratory effort Auscultation: + diminished lung sounds Cardiovascular: Rate/Rhythm: regular rate and regular rhythm Heart Sounds: + murmur Extremities: + AV fistula; no edema Gastrointestinal (Abdomen): Inspection/Auscultation: normal bowel sounds Percussion/Palpation: abdomen soft; abdomen nontender Musculoskeletal: Extremities: strength 5/5 throughout Skin: no rashes, warm and dry Neurologic: spicer, fluent speech, no tremor Psychiatric: Orientation: alert and oriented x 3 Results & Data Vital Signs (Past 12 Hours) Vital Signs Temp Pulse Pulse Resp BP BP Pulse Ox 09/12/22 15:32 36.9 C 69 18 100/53 L 95 09/12/22 15:00 65 9 L 99 09/12/22 15:00 107/50 L 09/12/22 14:46 99/53 L 09/12/22 14:37 93 09/12/22 14:30 67 7 L 99 09/12/22 14:30 97/46 L 09/12/22 14:00 65 15 98 09/12/22 14:00 95/45 L 09/12/22 13:30 66 11 L 91 09/12/22 13:30 91/44 L 09/12/22 14:18 65 09/12/22 13:00 66 16 96 09/12/22 13:00 88/45 L 09/12/22 12:30 69 16 95 09/12/22 12:30 96/49 L 09/12/22 12:00 75 17 99 09/12/22 12:00 123/63 09/12/22 11:30 81 16 100 09/12/22 11:30 158/71 H 09/12/22 11:00 82 15 100 09/12/22 11:00 175/78 H 09/12/22 10:30 78 14 171/77 H 100 09/12/22 10:24 73 L 09/12/22 10:00 80 16 96 09/12/22 10:16 86 09/12/22 09:52 36.4 C L 78 20 170/88 H 98 O2 Del Method O2 Flow Rate 09/12/22 15:32 Room Air 09/12/22 15:00 Room Air 09/12/22 15:00 09/12/22 14:46 09/12/22 14:37 09/12/22 14:30 09/12/22 14:30 09/12/22 14:00 09/12/22 14:00 09/12/22 13:30 09/12/22 13:30 09/12/22 14:18 09/12/22 13:00 Room Air 09/12/22 13:00 09/12/22 12:30 09/12/22 12:30 09/12/22 12:00 Room Air 09/12/22 12:00 09/12/22 11:30 09/12/22 11:30 09/12/22 11:00 09/12/22 11:00 09/12/22 10:30 Nasal Cannula 2 09/12/22 10:24 Nasal Cannula 0 09/12/22 10:00 Room Air 09/12/22 10:16 09/12/22 09:52 Room Air Laboratory Results 09/12/22 10:05 09/12/22 10:05 Diagnostic Findings cxr clear late Feb CT a/p reviewed
[2022-09-12] MEDS ORDERED: MIRTAZAPINE TAB 15 MG TAB PO SCH (21:00)
[2022-09-12] MEDS ORDERED: MELATONIN 3 MG TAB PO PRN (21:32)
[2022-09-13] MEDS: INSULIN ASPART PER UNIT CHARGE SC SCH ×2 (04:19→08:45)
[2022-09-13] MEDS ORDERED: SODIUM CHLORIDE 0.9% 1000ML 1,000 ML IV PRN (07:37)
[2022-09-13] MEDS ORDERED: HEPARIN SOD (PORCINE) 1000 UNIT/ML IV SCH (08:00)
[2022-09-13] MEDS: PANTOprazole 40 MG TAB PO SCH (08:10)
--- NOTE | 2022-09-13 08:41 | Hospitalist Progress Note ---
Date of Service September 13, 2022 Assessment & Plan (1) Cyclical vomiting syndrome: Plan: Continue his usual regimen with Ondansetron 1st line, Compazine 2nd line for nausea or vomiting Will advance patient to clear liquids by request (2) Hypotension: Plan: Following his usual medications given in the ER. Will hold further anti- hypertensives at this time and re-introduce as able. 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, with long-term current use of insulin: Plan: Consult pharmacy for glycemic control during his admission (4) GERD (gastroesophageal reflux disease): Plan: Continue pantoprazole 40mg PO BID Plan VTE prophylaxis - consider starting if prolonged stay Diet - clear liquid, T1DM Disposition - observation status to med/surg Admission and Anticipated Discharge Date Admission Date: September 12, 2022 Results & Data Results & Data Vital Signs (Past 12 Hours) Vital Signs Temp Pulse Resp BP Pulse Ox O2 Del Method 09/13/22 07:15 36.5 C 69 12 136/62 96 Room Air 09/13/22 00:00 37.1 C 68 18 116/52 L 97 Room Air Laboratory Results 09/13/22 09/13/22 09/12/22 Range/Units 08:18 04:16 Unknown WBC (4.8-10.8) K/ul RBC (4.70-6.10) M/uL Hgb (14.0-18.0) g/dl Hct (42.0-52.0) % MCV (80.0-100.0) fL MCH (25.0-34.0) pg MCHC (32.0-36.0) g/dL RDW Std Deviation (36.4-46.3) fL RDW Coeff of Kami (11.5-14.5) % Plt Count (130-400) K/uL MPV (9.4-12.4) fL Immature Gran % (Auto) % Neut % (Auto) % Lymph % (Auto) % [place] % (Auto) % Eos % (Auto) % Baso % (Auto) % Neut # (Auto) (1.40-6.50) K/uL Lymph # (Auto) (1.2-3.4) K/uL [place] # (Auto) (0.11-0.59) K/uL Eos # (Auto) (0-0.50) K/uL Baso # (Auto) (0-0.2) K/uL Immature Gran # (Auto) (0.01-0.20) K/uL Sodium (136-145) mmol/L Potassium (3.5-5.1) mmol/L Chloride (98-107) mmol/L Carbon Dioxide (21-32) mmol/L Anion Gap (3-11) BUN (6-23) mg/dl Creatinine (0.6-1.4) mg/dl Est Cr Clr Drug Dosing Est GFR ( Amer) ml/min Est GFR (Non-Af Amer) ml/min BUN/Creatinine Ratio (10-20) Glucose (70-99(Fasting)) mg/dl POC Glucose 197 H 103 H (70-99) mg/dl Calcium (8.6-10.3) mg/dl Total Bilirubin (0.2-1.0) mg/dl AST (13-39) U/L ALT (7-52) U/L Alkaline Phosphatase (34-104) U/L Total Protein (6.0-8.3) gm/dl Albumin (3.4-5.0) gm/dl Globulin (2.5-4.0) gm/dl Albumin/Globulin Ratio (0.9-2) Lipase (11-82) U/L Nasal Screen MRSA (PCR) Negative (Negative) SARS-CoV-2, RNA, NAAT (NEGATIVE) 09/12/22 09/12/22 09/12/22 Range/Units Unknown 23:42 20:32 WBC (4.8-10.8) K/ul RBC (4.70-6.10) M/uL Hgb (14.0-18.0) g/dl Hct (42.0-52.0) % MCV (80.0-100.0) fL MCH (25.0-34.0) pg MCHC (32.0-36.0) g/dL RDW Std Deviation (36.4-46.3) fL RDW Coeff of Kami (11.5-14.5) % Plt Count (130-400) K/uL MPV (9.4-12.4) fL Immature Gran % (Auto) % Neut % (Auto) % Lymph % (Auto) % [place] % (Auto) % Eos % (Auto) % Baso % (Auto) % Neut # (Auto) (1.40-6.50) K/uL Lymph # (Auto) (1.2-3.4) K/uL [place] # (Auto) (0.11-0.59) K/uL Eos # (Auto) (0-0.50) K/uL Baso # (Auto) (0-0.2) K/uL Immature Gran # (Auto) (0.01-0.20) K/uL Sodium (136-145) mmol/L Potassium (3.5-5.1) mmol/L Chloride (98-107) mmol/L Carbon Dioxide (21-32) mmol/L Anion Gap (3-11) BUN (6-23) mg/dl Creatinine (0.6-1.4) mg/dl Est Cr Clr Drug Dosing Est GFR ( Amer) ml/min Est GFR (Non-Af Amer) ml/min BUN/Creatinine Ratio (10-20) Glucose (70-99(Fasting)) mg/dl POC Glucose 115 H 206 H (70-99) mg/dl Calcium (8.6-10.3) mg/dl Total Bilirubin (0.2-1.0) mg/dl AST (13-39) U/L ALT (7-52) U/L Alkaline Phosphatase (34-104) U/L Total Protein (6.0-8.3) gm/dl Albumin (3.4-5.0) gm/dl Globulin (2.5-4.0) gm/dl Albumin/Globulin Ratio (0.9-2) Lipase (11-82) U/L Nasal Screen MRSA (PCR) (Negative) SARS-CoV-2, RNA, NAAT NEGATIVE (NEGATIVE) 09/12/22 09/12/22 09/12/22 Range/Units 17:43 12:08 11:17 WBC (4.8-10.8) K/ul RBC (4.70-6.10) M/uL Hgb (14.0-18.0) g/dl Hct (42.0-52.0) % MCV (80.0-100.0) fL MCH (25.0-34.0) pg MCHC (32.0-36.0) g/dL RDW Std Deviation (36.4-46.3) fL RDW Coeff of Kami (11.5-14.5) % Plt Count (130-400) K/uL MPV (9.4-12.4) fL Immature Gran % (Auto) % Neut % (Auto) % Lymph % (Auto) % [place] % (Auto) % Eos % (Auto) % Baso % (Auto) % Neut # (Auto) (1.40-6.50) K/uL Lymph # (Auto) (1.2-3.4) K/uL [place] # (Auto) (0.11-0.59) K/uL Eos # (Auto) (0-0.50) K/uL Baso # (Auto) (0-0.2) K/uL Immature Gran # (Auto) (0.01-0.20) K/uL Sodium (136-145) mmol/L Potassium (3.5-5.1) mmol/L Chloride (98-107) mmol/L Carbon Dioxide (21-32) mmol/L Anion Gap (3-11) BUN (6-23) mg/dl Creatinine (0.6-1.4) mg/dl Est Cr Clr Drug Dosing Est GFR ( Amer) ml/min Est GFR (Non-Af Amer) ml/min BUN/Creatinine Ratio (10-20) Glucose (70-99(Fasting)) mg/dl POC Glucose 94 239 H 301 H* (70-99) mg/dl Calcium (8.6-10.3) mg/dl Total Bilirubin (0.2-1.0) mg/dl AST (13-39) U/L ALT (7-52) U/L Alkaline Phosphatase (34-104) U/L Total Protein (6.0-8.3) gm/dl Albumin (3.4-5.0) gm/dl Globulin (2.5-4.0) gm/dl Albumin/Globulin Ratio (0.9-2) Lipase (11-82) U/L Nasal Screen MRSA (PCR) (Negative) SARS-CoV-2, RNA, NAAT (NEGATIVE) 09/12/22 09/12/22 09/12/22 Range/Units 10:05 10:05 10:02 WBC 8.11 (4.8-10.8) K/ul RBC 3.66 L (4.70-6.10) M/uL Hgb 12.0 L (14.0-18.0) g/dl Hct 35.9 L (42.0-52.0) % MCV 98.1 (80.0-100.0) fL MCH 32.8 (25.0-34.0) pg MCHC 33.4 (32.0-36.0) g/dL RDW Std Deviation 46.3 (36.4-46.3) fL RDW Coeff of Kami 12.9 (11.5-14.5) % Plt Count 276 (130-400) K/uL MPV 9.8 (9.4-12.4) fL Immature Gran % (Auto) 0.4 % Neut % (Auto) 76.6 % Lymph % (Auto) 16.3 % [place] % (Auto) 4.7 % Eos % (Auto) 1.1 % Baso % (Auto) 0.9 % Neut # (Auto) 6.22 (1.40-6.50) K/uL Lymph # (Auto) 1.32 (1.2-3.4) K/uL [place] # (Auto) 0.38 (0.11-0.59) K/uL Eos # (Auto) 0.09 (0-0.50) K/uL Baso # (Auto) 0.07 (0-0.2) K/uL Immature Gran # (Auto) 0.03 (0.01-0.20) K/uL Sodium 132 L (136-145) mmol/L Potassium 3.6 (3.5-5.1) mmol/L Chloride 86 L (98-107) mmol/L Carbon Dioxide 24 (21-32) mmol/L Anion Gap 22 H (3-11) BUN 59 H (6-23) mg/dl Creatinine 7.46 H* (0.6-1.4) mg/dl Est Cr Clr Drug Dosing Not Reportable Est GFR ( Amer) 8.8 ml/min Est GFR (Non-Af Amer) 7.6 ml/min BUN/Creatinine Ratio 7.9 L (10-20) Glucose 422 H* (70-99(Fasting)) mg/dl POC Glucose 400 H* (70-99) mg/dl Calcium 8.9 (8.6-10.3) mg/dl Total Bilirubin 0.8 (0.2-1.0) mg/dl AST 16 (13-39) U/L ALT 24 (7-52) U/L Alkaline Phosphatase 129 H (34-104) U/L Total Protein 7.4 (6.0-8.3) gm/dl Albumin 4.4 (3.4-5.0) gm/dl Globulin 3.0 (2.5-4.0) gm/dl Albumin/Globulin Ratio 1.5 (0.9-2) Lipase 20 (11-82) U/L Nasal Screen MRSA (PCR) (Negative) SARS-CoV-2, RNA, NAAT (NEGATIVE) 09/12/22 Range/Units 09:57 WBC (4.8-10.8) K/ul RBC (4.70-6.10) M/uL Hgb (14.0-18.0) g/dl Hct (42.0-52.0) % MCV (80.0-100.0) fL MCH (25.0-34.0) pg MCHC (32.0-36.0) g/dL RDW Std Deviation (36.4-46.3) fL RDW Coeff of Kami (11.5-14.5) % Plt Count (130-400) K/uL MPV (9.4-12.4) fL Immature Gran % (Auto) % Neut % (Auto) % Lymph % (Auto) % [place] % (Auto) % Eos % (Auto) % Baso % (Auto) % Neut # (Auto) (1.40-6.50) K/uL Lymph # (Auto) (1.2-3.4) K/uL [place] # (Auto) (0.11-0.59) K/uL Eos # (Auto) (0-0.50) K/uL Baso # (Auto) (0-0.2) K/uL Immature Gran # (Auto) (0.01-0.20) K/uL Sodium (136-145) mmol/L Potassium (3.5-5.1) mmol/L Chloride (98-107) mmol/L Carbon Dioxide (21-32) mmol/L Anion Gap (3-11) BUN (6-23) mg/dl Creatinine (0.6-1.4) mg/dl Est Cr Clr Drug Dosing Est GFR ( Amer) ml/min Est GFR (Non-Af Amer) ml/min BUN/Creatinine Ratio (10-20) Glucose (70-99(Fasting)) mg/dl POC Glucose 410 H* (70-99) mg/dl Calcium (8.6-10.3) mg/dl Total Bilirubin (0.2-1.0) mg/dl AST (13-39) U/L ALT (7-52) U/L Alkaline Phosphatase (34-104) U/L Total Protein (6.0-8.3) gm/dl Albumin (3.4-5.0) gm/dl Globulin (2.5-4.0) gm/dl Albumin/Globulin Ratio (0.9-2) Lipase (11-82) U/L Nasal Screen MRSA (PCR) (Negative) SARS-CoV-2, RNA, NAAT (NEGATIVE) PG Care Time/CCT Total # of Minutes Spent Total Time Spent with Patient: Total time spent is greater than 50% in coordination of care (as documented) at patient's floor/unit and/or counseling patient: Coding Diagnoses Cyclical vomiting syndrome R11.15 Hypotension I95.9 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
[2022-09-13] MEDS ORDERED: CHOLECALCIFEROL 1,000 UNITS 25 MCG TAB PO SCH (09:00)
[2022-09-13] MEDS ORDERED: LOSARTAN POTASSIUM 50 MG TAB PO SCH (09:00)
[2022-09-13] MEDS ORDERED: SERTRALINE HCL 100 MG TABLET PO SCH (09:00)
[2022-09-13] MEDS ORDERED: LANTUS PER UNIT CHARGE SQ SCH (09:00)
[2022-09-13] MEDS ORDERED: SERTRALINE HCL 50 MG TABLET PO SCH (09:00)
[2022-09-13] MEDS ORDERED: buPROPion HCl 100 MG TABLET PO SCH (09:00)
[2022-09-13] MEDS ORDERED: ATORVASTATIN 10 MG TAB PO SCH (09:00)
[2022-09-13] MEDS: HEPARIN SOD (PORCINE) 1000 UNIT/ML IV SCH ×3 (10:19→12:29)
[2022-09-13] MEDS ORDERED: INSULIN ASPART PER UNIT CHARGE SC SCH ×2 (13:00→16:00)
--- NOTE | 2022-09-13 13:02 | Pharmacy Report ---
Pharmacy Glycemic Short Note 2 - Date of Service September 13, 2022 - Glycemic Short BSG Results (Last 24 hours): 09/12/22 09/12/22 09/12/22 17:43 20:32 23:42 POC Glucose 94 206 H 115 H 09/13/22 09/13/22 04:16 08:18 POC Glucose 103 H 197 H OUTPATIENT ANTIDIABETIC REGIMEN: * Lantus 17 units daily * Novolog CF 40 CR 8 * HbA1C- patient on dialysis ASSESSMENT: * Mr De Los Santos is a 52 y/o M with a PMH of T1DM who presents with cyclic vomiting syndrome. * Patient reported that yesterday (09/12/22) he took his Lantus 17 units at home. * Patient's BSGs are admission were 400/239 for which he received 8 units of IV insulin. * BSG for dinner was 94 and bedtime was 206 mg/dL. Overnight BSGs were 115-103 mg/dL. Fasting this AM 197 mg/dL. * For basal, will start Lantus 16 units daily. In previous admissions this dose produced adequate blood sugars. No overnight checks needed right now. * Novolog will closely model outpatient regimen. PLAN FOR INPATIENT GLYCEMIC CONTROL: * Basal insulin * Lantus 16 units SQ daily * Bolus insulin * NovoLog per scale ACHS or Q6hrs while NPO * Goal Range: Low 120 mg/dL - High 160 mg/dL * Correction Factor: 40 mg/dL/unit * Nutritional / Prandial insulin per carb ratio of 1 unit per 10 grams CHO consumed
--- NOTE | 2022-09-13 14:26 | Discharge Summary ---
Date of Service September 13, 2022 Admission HPI Per Admitting Provider Jorge Alberto De Los Santos is a 52 year old male with T1DM and ESRD on dialysis well known to the service for repeated admissions with cyclic vomiting syndrome and gastroparesis who presents to the ER with intractable nausea and vomiting beginning this morning. He feels this is similar to his other occasions of cyclic vomiting syndrome / gastroparesis. He missed dialysis today and reports he was unable o take any of his oral medications but did take his lantus. He was therefore given some of his BP medications by the ER provider with amlodipine and carvedilol which subsequently caused hypotension with BP 88/45. Since he mi ssed dialysis and not safe for him to go the whole weekend without this he was referred to medicine for admission and ongoing management. Admission Exam Per Admitting Provider Constitutional: well developed and + acute distress; + not well nourished ENMT: external ear and nose normal, oropharynx normal Respiratory: normal respiratory effort, lungs clear to auscultation Cardiovascular: RRR, no murmur, no edema Gastrointestinal (Abdomen): Inspection/Auscultation: abdomen normal to inspection; abdomen not distended Percussion/Palpation: + abdomen tender (gene ralized) and abdomen soft; no guarding and abdomen not rigid Musculoskeletal: no cyanosis or clubbing, extremities motor strength 5/5 Skin: no rashes, warm and dry Neurologic: moves all extremities and awake; not confused Psychiatric: A+Ox3, euthymic affect Principal Diagnosis Nausea/vomiting, possible viral gastroenteritis vs cyclic vomiting Discharge Exam General: WD male sitting up in bed, watching son's soccer game on his phone, just got back from HD, NAD HEENT; pupils equal, mmm, trachea midline Resp: CTA, no signifciant w/c/r, on room air 96% CV: RRR, +MURMUR (patient states known), no pitting edema GI: +BS, soft/NT, no guarding : no parker MSK/Neuro: no focal deficit, no slurred speech/facial droop Psych: AOx3, cooperative and wanting to go home today Discharge Data Allergies Allergy/AdvReac Type Severity Reaction Status Date / Time shellfish derived Allergy Severe anaphylaxis Verified 08/14/22 11:08 codeine Allergy Intermediate Hives Verified 08/14/22 11:08 promethazine Allergy Intermediate itchy/hives Verified 08/14/22 11:08 Consultations 09/12/22 12:32 ED Decision to Admit Stat 09/12/22 12:44 Consult Nephrology Routine Ordered Studies Chest X-Ray 09/12/22 10:36 XR chest 1V portable CLINICAL HISTORY: Hypoxia. COMPARISON STUDY: Chest radiograph August 01, 2022. FINDINGS: There is no pneumothorax or pleural effusion. No consolidation is identified to suggest pneumonia. Cardiomegaly is unchanged. There is no evidence for pulmonary edema. IMPRESSION: No acute cardiopulmonary findings. Stable cardiomegaly. ACT 112: Negative or not required by law. Electronically signed by: Gabino Cool M.D. 09/12/2022 10:52 AM Hospital Course (1) Nausea & vomiting: Presented to ER w/ intractable nausea/vomiting beginning AM 09/12 which he felt was similar to other occasions of cyclic vomiting syndrome/gastroparesis and missed his HD and was unable to take any oral meds except lantus. Nephrology consulted given concerns for missed HD and not safe for him to go whole weeekend without Given clear liquid diet, no further n/v s/p HD 09/13 and stable (had some minor low BSGs, discussed he is well aware when low and has supplies at home to check, no refills needed) Discussed also could be from viral gastroenteritis as lot going around in the area currently. Supportive care provided, antiemetics with zofran/compazine (states does not need refills for this either) and stable for discharge and wanting to go home. To monitor for any worsening/inability to keep oral intake down/return to ER if needed (2) Cyclical vomiting syndrome: Continued antiemetics as usually takes --> 1st line zofran, 2nd line compazine Tolerating diet, no further n/v since 09/12 and tolerated diet (3) Hypotension: Following his usual medications given in the ER, further meds held and s/p HD today --> BP 165/71 this afternoon and able to resume home meds at discharge now that taking oral intake. 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 Has supplies at home and well aware of warning signs/alert PCP or return to ER. (5) GERD (gastroesophageal reflux disease): Continued pantoprazole 40mg PO BID Total Time Total Time Spent Total Time Spent (In Minutes): 35 Discharge Plan Discharge Items Patient Disposition: Home - Self-Care Reason For Visit: INTRACTABLE NAUSEA AND VOMITING Discharge Diagnosis: Nausea/Vomiting Goals: You have been hospitalized for an acute medical problem. During your stay at [facility], we have made an effort to correct the problem that brought you to the hospital while keeping you as comfortable as possible. Medications were used to bring your condition under control and your discharge instructions will include directions for any medications you should take after leaving the hospital. Please make sure you see your Primary Care Provider as part of your follow up plan. Activity: Resume your previous activity Non-emergency contact: Primary Care Provider and Clinical Instructor Call non-emergency contact if: you have any medication questions, your symptoms worsen and you have a fever Follow-up/Referrals: Genet Cool MD [Primary Care Provider] - 09/22/22 1:00 pm () Lor Guadalupe MD, PhD [Physician] - Diet: Carb Count or DM1 and Dialysis Renal Addtl Attending Provider Instructions: You have been hospitalized for nausea/vomiting. This could be from your cyclic vomiting syndrome, but there are also a lot of viral GI bugs going around and this could be a viral enteritis. You were treated with supportive care, and nephrology was consulted to assist with arranging HD over the weekend to prevent gap in your treatments. You should follow up with primary care in the next week at discharge to monitor your status. Please continue to stay hydrated at discharge, and return to the ER for any worsening nausea/vomiting, or inability to keep oral intake down. It has been a pleasure being a part of the medical team providing for you while you have been in the hospital. Take care! Pending Studies at Discharge: No Stand-Alone Forms: My [facility], Smoking Cessation Medications and DC Order Prescriptions: Continued acetaminophen 325 mg capsule 650 mg PO Q4H PRN (Reason: Pain (Scale Score 1-3)) lorazepam 0.5 mg tablet 0.5 mg PO Q6H PRN (Reason: Anxiety) Qty: 60 0RF (DME) pen needle, diabetic [BD Ultra-Fine Annalise Pen Needle] 32 gauge x 5/32" ne edle See Rx Instructions .Route Qty: 500 3RF Rx Instructions: Use 5 per day with insulin injections (DME) Contour Next Test Strips Strip See Rx Instructions .Route Qty: 100 3RF Rx Instructions: check blood sugar at least once a day losartan 100 mg tablet 100 mg PO QAM Qty: 90 3RF atorvastatin 10 mg tablet 10 mg PO QAM Qty: 90 1RF carvedilol 25 mg tablet 50 mg PO BID Rx Instructions: TAKE THIS MEDICATION WITH FOOD melatonin 3 mg tablet 3 mg PO HS PRN (Reason: Sleep) insulin aspart U-100 [Novolog FlexPen U-100 Insulin] 100 unit/mL (3 mL) insulin pen 5 unit SUBCUT TIDM PRN (Reason: sliding scale) Qty: 15 5RF Rx Instructions: Use per sliding scale. 1 unit for every 8 grams of carb. Correction Factor 1 unit per 40mg/dL above goal range. MDD 40 units daily. prochlorperazine maleate [Compazine] 5 mg tablet 5 mg PO BID PRN (Reason: Nausea) 30 Days Qty: 60 1RF ondansetron HCl 4 mg tablet 8 mg PO Q4 PRN (Reason: nausea or vomiting) Qty: 60 2RF sertraline 100 mg tablet 100 mg PO QAM Rx Instructions: TOTAL DOSE 125 MG--TAKES WITH 25 MG TAB. sertraline 25 mg tablet 25 mg PO QAM Rx Instructions: TOTAL DOSE 125 MG--TAKES WITH 100 MG TAB. mirtazapine 7.5 mg tablet 7.5 mg PO HS Velphoro 500 mg tablet,chewable 1,000 mg PO TIDM amlodipine 10 mg tablet 10 mg PO QAM hydralazine 10 mg tablet 10 mg PO TID Qty: 90 0RF cholecalciferol (vitamin D3) [Vitamin D3] 50 mcg (2,000 unit) capsule 50 mcg PO QAM bupropion HCl 100 mg tablet 100 mg PO QAM pantoprazole 40 mg tablet,delayed release (DR/EC) 40 mg PO BIDM insulin glargine [Basaglar KwikPen U-100 Insulin] 100 unit/mL (3 mL) insulin pen 17 unit SUBCUT QAM Discharge Orders: Discharge Order (Routine); Ordered 09/13/22 Ordered By: Antonina Medina Admission Data Admit Date/Time: 09/12/22 12:47 Attending Provider: Godwin Ray Admit Provider: Guevara Loomis Primary Care Provider: Genet Cool Other Providers: Guevara Loomis ; Lor Guadalupe Other Interventions: Discharge Summary Assessment (RN) Last Done: 09/13/22 14:49 Supervising Physician Co-Signing Physician Notes The patient was seen by me. The chart was reviewed. Case discussed with CAROL Maravilla. Agree with assessment and plan. 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
--- NOTE | 2022-09-13 15:16 | Nephrology Progress Note ---
Date of Service September 13, 2022 Assessment & Plan (1) Dialysis patient: Plan: ESRD on MWF HD via AVF. missed dialysis due to acute illness yesterday. Tolerated abbreviated session today with 2 L of fluid removal His chemistries are acceptable. - next dialysis on September 15 as outpatient or inpatient depending on clinical status; likely for discharge today -no reported issues w/ AVF Appreciate consultation; will follow with you. Admission and Anticipated Discharge Date Admission Date: September 12, 2022 Subjective feels improved when I evaluated him this morning. Nausea vomiting have stopped. Tolerating p.o.. Agreeable to dialysis. No shortness of breath or uncontrolled pain Review of Systems Review of Systems: All systems reviewed & are unremarkable except as noted in Subjective Physical Exam Constitutional: well developed, well nourished and cooperative; no acute dist ress Eyes: EOM intact bilaterally ENMT: Ears: no external ear abnormality Nose: no external nose abnormality Mouth: + dry oral mucous membranes Neck: no nuchal rigidity Respiratory: normal respiratory effort Auscultation: + diminished lung sounds Cardiovascular: Rate/Rhythm: regular rate and regular rhythm Heart Sounds: + murmur Extremities: + AV fistula; no edema Gastrointestinal (Abdomen): Inspection/Auscultation: normal bowel sounds Percussion/Palpation: abdomen soft; abdomen nontender Musculoskeletal: Extremities: strength 5/5 throughout Skin: no rashes, warm and dry Psychiatric: Orientation: alert and oriented x 3 Results & Data Vital Signs (Past 12 Hours) Vital Signs Temp Pulse Pulse Pulse Resp BP BP 09/13/22 14:49 36.5 C 69 75 12 165/71 H 09/13/22 12:55 36.5 C 75 165/71 H 09/13/22 12:30 71 161/74 H 09/13/22 12:00 70 140/70 09/13/22 11:30 71 136/70 09/13/22 11:00 72 127/65 09/13/22 10:30 68 106/55 L 09/13/22 10:00 68 126/63 09/13/22 09:30 69 137/72 09/13/22 09:00 67 140/67 09/13/22 08:50 36.5 C 73 09/13/22 07:15 36.5 C 69 12 136/62 Pulse Ox O2 Del Method 09/13/22 14:49 96 09/13/22 12:55 09/13/22 12:30 09/13/22 12:00 09/13/22 11:30 09/13/22 11:00 09/13/22 10:30 09/13/22 10:00 09/13/22 09:30 09/13/22 09:00 09/13/22 08:50 09/13/22 07:15 96 Room Air Laboratory Results 09/12/22 10:05 09/12/22 10:05
[2022-09-15 11:34] LABS: iSTAT Hemoglobin 13.3 g/dl (14.0-18.0); iSTAT Ionized Calcium 0.95 mmol/l (1.12-1.32); iSTAT Potassium 3.7 mmol/L (3.3-5.0)
== END 2022-09-13 15:58 | disposition home or self-care (01) ==
LOC: 3W 09:42 → ED 09:42 → SUATTDRO 12:47 → 3W 15:21

== ENCOUNTER 2022-12-01 01:21 | Inpatient (IN) ==
[2022-12-01] MEDS ORDERED: LORazepam 2 MG/1 ML VIAL IV STA (01:37)
--- NOTE | 2022-12-01 01:41 | Emergency Department Note ---
History of Present Illness General Chief complaint: Shortness of Breath/Dyspnea Stated complaint: SHORTNESS OF BREATH,CHEST TIGHTNESS Time Seen by Provider: 12/01/22 01:32 History of Present Illness Maximum Pain Intensity: 4 This 52-year-old end-stage renal disease poorly controlled diabetes presents the ER complaining of chest pain and shortness of breath for the past hour. Patient has a history of anxiety. He has a history of pleural effusions. He follows with pulmonology. He did not miss dialysis. He has gained weight per patient. Patient denies fevers, abdominal pain, vomiting, diarrhea, leg pain or swelling. Home Medications Medication Instructions Recorded Confirmed Type acetaminophen 325 mg capsule 650 mg PO Q4H PRN Pain (Scale 09/28/20 11/18/22 History Score 1-3) carvedilol 25 mg tablet 50 mg PO BID 10/01/20 11/18/22 History lorazepam 0.5 mg tablet 0.5 mg PO Q6H PRN Anxiety #60 tabs 03/27/21 11/18/22 Rx insulin aspart U-100 100 unit/mL 5 unit (0.05 mL) subcut TIDM PRN 10/24/21 11/18/22 Rx (3 mL) subcutaneous pen (Novolog sliding scale #15 mL FlexPen U-100 Insulin aspart) cholecalciferol (vitamin D3) 50 50 mcg PO QAM 10/25/21 11/18/22 History mcg (2,000 unit) capsule (Vitamin D3) pen needle, diabetic 32 gauge x #500 ea 12/17/21 11/18/22 Rx 5/32" (BD Ultra-Fine Annalise Pen Needle) sertraline 100 mg tablet 100 mg PO QAM 12/29/21 11/18/22 History sertraline 25 mg tablet 25 mg PO QAM 12/29/21 11/18/22 History sucroferric oxyhydroxide 500 mg 1,000 mg PO TIDM 12/29/21 11/18/22 History chewable tablet (Velphoro) amlodipine 10 mg tablet 10 mg PO QAM 03/01/22 11/18/22 History losartan 100 mg tablet 100 mg PO QAM #90 tabs 06/05/22 11/18/22 Rx insulin glargine 100 unit/mL (3 17 unit subcut QAM 07/20/22 11/18/22 History mL) subcutaneous pen (Basaglar KwikPen U-100 Insulin) pantoprazole 40 mg tablet,delayed 40 mg PO BIDM 07/20/22 11/18/22 History release atorvastatin 10 mg tablet 10 mg PO QAM #90 tabs 08/11/22 11/18/22 Rx ondansetron HCl 4 mg tablet 8 mg PO Q4 PRN nausea or vomiting 08/14/22 11/18/22 Rx #60 tabs bupropion HCl 100 mg tablet 125 mg PO QAM 09/18/22 11/18/22 History melatonin 1 mg tablet 4 mg PO HS PRN 09/18/22 11/18/22 History trimethobenzamide 300 mg capsule 300 mg PO TID PRN nausea and 09/23/22 11/18/22 History vomiting hydralazine 50 mg tablet 50 mg PO BID 10/21/22 11/18/22 History mirtazapine 7.5 mg tablet 15 mg PO HS #60 tabs 10/21/22 11/18/22 Rx Allergies Allergy/AdvReac Type Severity Reaction Status Date / Time shellfish derived Allergy Severe anaphylaxis Verified 11/18/22 08:39 codeine Allergy Intermediate Hives Verified 11/18/22 08:39 promethazine Allergy Intermediate itchy/hives Verified 11/18/22 08:39 Past Med/Surg History Medical History Anemia of chronic disease Anxiety AV fistula left upper arm CAD (coronary artery disease) mild, non-obstructive CAD per 10/2018 cardiac cath> [facility] Chronic pleural effusion PleurX catheter placed 01/24/21--removed 07/2021 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 Lor Guadalupe; [facility]/[place]) GERD (gastroesophageal reflux disease) History of nephrolithiasis History of pulmonary embolism 11/2020; unk etiology; was on warfarin (taken off 05/2021) Hypertension Hypertensive emergency Hypertensive urgency Junctional rhythm Kidney stone on right side Lumbar radiculopathy Nausea & vomiting Palliative care encounter Personal history of diabetic foot ulcer Urolithiasis Surgical History H/O shoulder surgery RIGHT History of appendectomy History of cardiac cath 10/2018= no stents, no obstructive disease (at [facility]) History of cataract surgery History of esophagogastroduodenoscopy (EGD) (~03/08/20) History of hip surgery left HIP ARTHROSCOPY History of lithotripsy History of open reduction and internal fixation (ORIF) procedure right hip Nausea and vomiting after administration of anesthetic agent S/P arteriovenous (AV) fistula creation Family History Grandfather Myocardial infarction Grandfather (Maternal) Family history of diabetes mellitus Uncle Myocardial infarction Father Hypertension Mother Kidney stone Other No family history of adverse response to anesthesia Denies family history of Colon cancer Ovarian cancer Prostate cancer Breast cancer Social History Smoking Status: Never smoker Tobacco Type: Cigarettes Second Hand Exposure: No; Do You Dip or Chew Tobacco: Yes (quit 2018); Hx Alcohol Use: No Hx Substance Use: No Preferred Language: Citizen Of [place] Communication Ability: Effective Communication Ability Comment: PT CURRENTLY AT [facility] Visual Impairment: No Limitations Hearing Ability: Normal Buckle Sorter Required: No Beliefs That Will Affect Care: None marital status: Current Living Situation: Family Current Living Situation Comment: single story home with parents current occupational status: disabled How many Children do You have: 2 Feels Safe at Home: Yes Childhood Exposure to Second-Hand Smoke: Yes Dental Care, Regularly: No Physical Activity Frequency: 1-2 Times per Week Seatbelt Use: always Sunscreen Use: No Assistive Devices: Denture - Upper and Glasses Review of Systems A total of 10 systems reviewed and were otherwise negative Physical Exam Vital Signs Vital Signs - 24 hr 12/01/22 01:23 12/01/22 02:04 12/01/22 01:37 Temperature 36.8 C Temperature Source Oral Pulse Rate 86 81 Pulse Rhythm Regular Pulse Strength Normal Respiratory Rate 22 Respiratory Effort / Characteristics Non-Labored Spontaneous Respiratory Depth Normal Respiratory Pattern Regular Blood Pressure 193/85 H Blood Pressure Mean 121 Blood Pressure Position Sitting Pulse Oximetry 97 92 Oxygen Delivery Method Room Air Room Air Sepsis Recent Fever Within 48 Hours No Sepsis New/Unexplained Change in Mental Status No Sepsis Action Taken by Nursing No Action Required 12/01/22 02:01 12/01/22 02:30 12/01/22 03:00 Temperature Temperature Source Pulse Rate 80 78 81 Pulse Rhythm Pulse Strength Respiratory Rate 14 13 10 L Respiratory Effort / Characteristics Respiratory Depth Respiratory Pattern Blood Pressure 201/89 H Blood Pressure Mean 126 Blood Pressure Position Pulse Oximetry 95 92 Oxygen Delivery Method Room Air Room Air Sepsis Recent Fever Within 48 Hours Sepsis New/Unexplained Change in Mental Status Sepsis Action Taken by Nursing 12/01/22 03:03 12/01/22 03:00 Temperature Temperature Source Pulse Rate 80 Pulse Rhythm Pulse Strength Respiratory Rate 18 Respiratory Effort / Characteristics Respiratory Depth Respiratory Pattern Blood Pressure 202/82 H Blood Pressure Mean 122 Blood Pressure Position Pulse Oximetry 91 94 Oxygen Delivery Method Room Air Room Air Sepsis Recent Fever Within 48 Hours Sepsis New/Unexplained Change in Mental Status Sepsis Action Taken by Nursing VITALS: Vitals are noted on the nurse's note and reviewed by myself. Vital signs stable. GENERAL: Pleasant male speaking in full sentences, in no acute distress, nondiaphoretic, well-developed well-nourished. SKIN: The skin was without rashes, erythema, edema, or bruising. There is no tenting of the skin. Capillary reflex less than 2 seconds. HEAD: Normocephalic atraumatic. EARS: External auditory canals clear, EYES: Pupils equal round and reactive to light and accommodation. Conjunctivae without injection, sclerae without icterus. Extraocular movements intact. NOSE: Patent, turbinates without inflammation or discharge. MOUTH: Mucous membranes moist. Pharynx without erythema or exudate. Uvula midline. Airway patent. Tongue does not deviate. NECK: Supple without nuchal rigidity. No lymphadenopathy. No thyromegaly. Cervical spine is nontender. No JVD. HEART: Regular rate and rhythm LUNGS: Clear to auscultation bilaterally without wheezes, rales or rhonchi. No retractions or accessory muscle use. ABDOMEN: Positive bowel sounds x 4. Normal tympanic percussion. Soft, nontender, without masses or organomegaly. Prescott sign negative. No guarding or rebound tenderness. No CVA tenderness MUSCULOSKELETAL: No muscle atrophy, erythema, or edema noted. NEURO: Patient was alert and oriented to person place and time. Normal sensation to light and sharp touch. No focal neurological deficits. Course Administered Medications Discontinued Medications Lorazepam (Lorazepam 2 Mg/1 Ml Vial) 1 mg IV NOW STA Stop: 12/01/22 01:38 Last Admin: 12/01/22 03:09 Dose: 1 mg Documented By: RUTH Medical Decision Making Medical Records Attestation: I reviewed the patient's medical records. Home Medications Current Medication List: was personally reviewed by me Laboratory Data Attestation: I reviewed the patient's lab results. 12/01/22 02:40 12/01/22 02:40 Lab Results 12/01/22 12/01/22 12/01/22 Range/Units 01:53 02:19 02:40 WBC 7.37 (4.8-10.8) K/ul RBC 2.76 L (4.70-6.10) M/uL Hgb 9.0 L (14.0-18.0) g/dl Hct 27.8 L (42.0-52.0) % MCV 100.7 H (80.0-100.0) fL MCH 32.6 (25.0-34.0) pg MCHC 32.4 (32.0-36.0) g/dL RDW Std Deviation 52.7 H (36.4-46.3) fL RDW Coeff of Kami 14.4 (11.5-14.5) % Plt Count 214 (130-400) K/uL MPV 9.7 (9.4-12.4) fL Immature Gran % (Auto) 0.5 % Neut % (Auto) 69.3 % Lymph % (Auto) 17.0 % Thurston % (Auto) 10.0 % Eos % (Auto) 2.4 % Baso % (Auto) 0.8 % Neut # (Auto) 5.10 (1.40-6.50) K/uL Lymph # (Auto) 1.25 (1.2-3.4) K/uL Thurston # (Auto) 0.74 H (0.11-0.59) K/uL Eos # (Auto) 0.18 (0-0.50) K/uL Baso # (Auto) 0.06 (0-0.2) K/uL Immature Gran # (Auto) 0.04 (0.01-0.20) K/uL VBG pH (7.36-7.41) VBG pCO2 (38-50) mmHg VBG pO2 mmHg VBG HCO3 mmol/L VBG O2 Saturation % VBG Base Excess mEq/L Sodium (136-145) mmol/L Potassium (3.5-5.1) mmol/L Chloride (98-107) mmol/L Carbon Dioxide (21-32) mmol/L Anion Gap (3-11) BUN (6-23) mg/dl Creatinine (0.6-1.4) mg/dl Est Cr Clr Drug Dosing ml/min Est GFR ( Amer) ml/min Est GFR (Non-Af Amer) ml/min BUN/Creatinine Ratio (10-20) Glucose (70-99(Fasting)) mg/dl POC Glucose 464 H* (70-99) mg/dl Calcium (8.6-10.3) mg/dl Magnesium (1.7-2.4) mg/dl Total Bilirubin (0.2-1.0) mg/dl AST (13-39) U/L ALT (7-52) U/L Alkaline Phosphatase (34-104) U/L Troponin I High Sens (0-20) pg/ml B-Natriuretic Peptide (0-100) pg/ml Total Protein (6.0-8.3) gm/dl Albumin (3.4-5.0) gm/dl Globulin (2.5-4.0) gm/dl Albumin/Globulin Ratio (0.9-2) SARS-CoV-2 (PCR) POSITIVE A* (Negative) 12/01/22 12/01/22 12/01/22 Range/Units 02:40 02:40 03:13 WBC (4.8-10.8) K/ul RBC (4.70-6.10) M/uL Hgb (14.0-18.0) g/dl Hct (42.0-52.0) % MCV (80.0-100.0) fL MCH (25.0-34.0) pg MCHC (32.0-36.0) g/dL RDW Std Deviation (36.4-46.3) fL RDW Coeff of Kami (11.5-14.5) % Plt Count (130-400) K/uL MPV (9.4-12.4) fL Immature Gran % (Auto) % Neut % (Auto) % Lymph % (Auto) % Thurston % (Auto) % Eos % (Auto) % Baso % (Auto) % Neut # (Auto) (1.40-6.50) K/uL Lymph # (Auto) (1.2-3.4) K/uL Thurston # (Auto) (0.11-0.59) K/uL Eos # (Auto) (0-0.50) K/uL Baso # (Auto) (0-0.2) K/uL Immature Gran # (Auto) (0.01-0.20) K/uL VBG pH 7.47 H (7.36-7.41) VBG pCO2 48 (38-50) mmHg VBG pO2 33 mmHg VBG HCO3 35 mmol/L VBG O2 Saturation < 60.0 % VBG Base Excess 9.7 mEq/L Sodium 132 L (136-145) mmol/L Potassium 3.1 L (3.5-5.1) mmol/L Chloride 90 L (98-107) mmol/L Carbon Dioxide 30 (21-32) mmol/L Anion Gap 12 H (3-11) BUN 45 H (6-23) mg/dl Creatinine 7.81 H* (0.6-1.4) mg/dl Est Cr Clr Drug Dosing 10.5 ml/min Est GFR ( Amer) 8.3 ml/min Est GFR (Non-Af Amer) 7.2 ml/min BUN/Creatinine Ratio 5.8 L (10-20) Glucose 392 H* (70-99(Fasting)) mg/dl POC Glucose (70-99) mg/dl Calcium 7.5 L (8.6-10.3) mg/dl Magnesium 2.1 (1.7-2.4) mg/dl Total Bilirubin 0.5 (0.2-1.0) mg/dl AST 23 (13-39) U/L ALT 17 (7-52) U/L Alkaline Phosphatase 106 H (34-104) U/L Troponin I High Sens 60.7 H* (0-20) pg/ml B-Natriuretic Peptide 2896 H (0-100) pg/ml Total Protein 6.1 (6.0-8.3) gm/dl Albumin 3.5 (3.4-5.0) gm/dl Globulin 2.6 (2.5-4.0) gm/dl Albumin/Globulin Ratio 1.3 (0.9-2) SARS-CoV-2 (PCR) (Negative) Imaging Data Attestation: I personally reviewed and interpreted this imaging study as follows: Radiologist's Impression: Chest CT 12/01/22 02:19 Exam(s): CT CHEST Without Contrast EXAM: CT Chest Without Intravenous Contrast CLINICAL HISTORY: Reason for exam: sob, ESRD. TECHNIQUE: Axial computed tomography images of the chest without intravenous contrast. CTDI is 9.65 mGy and DLP is 354.87 mGy-cm. Automated exposure control was utilized for the study. A dose lowering technique was utilized adhering to the principles of ALARA. COMPARISON: CT fibroid 10 2021 FINDINGS: Lungs: See below. Pleural space: There is a small to moderate size left pleural effusion. Extensive fluid extends into the left major fissure. Very small right pleural effusion. No pneumothorax. Heart: Cardiomegaly. Scattered atherosclerotic calcification of the coronary arteries. No significant pericardial effusion. Bones/joints: Unremarkable. No acute fracture. No dislocation. Soft tissues: Unremarkable. Vasculature: There is a generalized prominence of syncytial markings and vessels, particularly in the lung bases. This appears to represent volume overload. No focal consolidation is evident. Lymph nodes: Unremarkable. No enlarged lymph nodes. IMPRESSION: Generalized prominence of vessels and interstitial markings, particularly in the lung bases. This likely represents volume overload. Bilateral pleural effusions, larger on the left where extensive fluid extends into the left major fissure. Electronically signed by: Godwin Hayes MD 12/01/22 04:52 AM [facility] Narrative Prior records/ancillary studies reviewed. Triage Nursing notes reviewed. Additional history obtained from family. The patient's history was concerning for chest pain. Differential diagnosis: Etiologies such as cardiac ischemia, aortic dissection, pulmonary embolism, pneumonia, pneumothorax, musculoskeletal, infections, pericarditis, myocarditis, esophageal rupture, gastrointestinal, as well as others were entertained. Physical examination: As above. ER treatment provided: An order was placed for continuous cardiac monitoring. The monitor shows a rate of 60-100 with a sinus rhythm per my interpretation. Ativan On reassessment the patient felt better. Diagnostic interpretation by me: The electrocardiogram was negative for pathologic change. Order for chest pain EKG: Normal sinus, T wave inversion in aVL, rate of 83. Impression normal sinus rhythm with a first-degree AV block independently interpreted by myself I think arrhythmia is unlikely. EKG shows normal sinus rhythm with no interval abnormalities such as QT prolongation or WPW. There are no findings to suggest Brugada syndrome. Cardiac monitoring in the emergency department reveals no tachycardic or bradycardic dysrhythmia. Hypertrophic cardiomyopathy was considered but there are no clear historical elements pointing toward this. EKG is not suggestive. The QRS voltage is not extremely large The labs Independently Interpreted by myself revealed elevated troponin. Elevated creatinine and patient is due for dialysis in the morning Positive COVID Imaging studies: Chest x-ray concerning for pleural effusions my independent interpretation Chest CT concerning for pleural effusions and fluid overload per my independent interpretation. Radiology read the report and this was reviewed as above. HEART SCORE: Hx: high/mod/low suspicion: 0 ECG: ST depression/nonspecific changes/normal: 0 Age: Greater than 65/45-64/less than 45: 1 Risk factors: (Hypertension, hyperlipidemia, diabetes, coronary disease, tobacco use, cocaine use): 2 Troponin: Greater than 2 times normal limits/1-2 times normal limits/normal: 1 Total: 4 Consultation: A consultation was placed with the hospitalist. The case was discussed and diagnostics were reviewed. The patient was evaluated in the ER for further treatment. Exam and history seem consistent with COVID with elevated troponin and pleural effusions which are recurrent. Labs and diagnostics were independently interpreted by myself. Radiology read the CAT scan. Patient was reassessed multiple times. Medicine is consulted. They will be evaluated for possible admission. By the evaluation outlined above emergent etiologies such as aortic dissection, pulmonary embolism, pneumothorax, pericarditis, myocarditis, gastrointestinal, as well as others were deemed relatively unlikely. The pt informed about the findings as listed above. All questions were answered and pleased with the treatment. The chart was completed utilizing [employer] Speech voice recognition software. Grammatical errors, random word insertions, pronoun errors, and incomplete sentences are an occassional consequence of this system due to software l imitations, ambient noise, and hardware issues. Any formal questions or concerns about the content, text, or information contained within the body of this dictation should be directly addressed to the physician advertising assistant for clarification. Impression & Plan COVID-19, Chest pain, Elevated troponin, Pleural effusion, bilateral Discharge Plan Visit Data Chief Complaint: Shortness of Breath/Dyspnea Stated Complaint: SHORTNESS OF BREATH,CHEST TIGHTNESS ED Provider: Yue Nielson ED Midlevel Provider: Nika Christiansen Discharge Problem: COVID-19, Chest pain, Elevated troponin, Pleural effusion, bilateral Patient Disposition: Admitted As Inpatient Condition: Fair Forms Stand Alone Forms: On License Of [facility] Prescriptions Prescriptions: No Action acetaminophen 325 mg capsule 650 mg PO Q4H PRN (Reason: Pain (Scale Score 1-3)) lorazepam 0.5 mg tablet 0.5 mg PO Q6H PRN (Reason: Anxiety) Qty: 60 0RF (DME) pen needle, diabetic [BD Ultra-Fine Annalise Pen Needle] 32 gauge x 5/32" n eedle See Rx Instructions .Route Qty: 500 3RF Rx Instructions: Use 5 per day with insulin injections losartan 100 mg tablet 100 mg PO QAM Qty: 90 3RF atorvastatin 10 mg tablet 10 mg PO QAM Qty: 90 1RF trimethobenzamide 300 mg capsule 300 mg PO TID PRN (Reason: nausea and vomiting) carvedilol 25 mg tablet 50 mg PO BID Rx Instructions: TAKE THIS MEDICATION WITH FOOD hydralazine 50 mg tablet 50 mg PO BID mirtazapine 7.5 mg tablet 15 mg PO HS Qty: 60 0RF insulin aspart U-100 [Novolog FlexPen U-100 Insulin] 100 unit/mL (3 mL) insulin pen 5 unit SUBCUT TIDM PRN (Reason: sliding scale) Qty: 15 5RF Rx Instructions: Use per sliding scale. 1 unit for every 8 grams of carb. Correction Factor 1 unit per 40mg/dL above goal range. MDD 40 units daily. ondansetron HCl 4 mg tablet 8 mg PO Q4 PRN (Reason: nausea or vomiting) Qty: 60 2RF melatonin 1 mg tablet 4 mg PO HS PRN sertraline 100 mg tablet 100 mg PO QAM Rx Instructions: TOTAL DOSE 125 MG--TAKES WITH 25 MG TAB. sertraline 25 mg tablet 25 mg PO QAM Rx Instructions: TOTAL DOSE 125 MG--TAKES WITH 100 MG TAB. Velphoro 500 mg tablet,chewable 1,000 mg PO TIDM amlodipine 10 mg tablet 10 mg PO QAM cholecalciferol (vitamin D3) [Vitamin D3] 50 mcg (2,000 unit) capsule 50 mcg PO QAM pantoprazole 40 mg tablet,delayed release (DR/EC) 40 mg PO BIDM insulin glargine [Basaglar KwikPen U-100 Insulin] 100 unit/mL (3 mL) insulin pen 17 unit SUBCUT QAM bupropion HCl 100 mg tablet 125 mg PO QAM Rx Instructions: Per patient he is taking 125 mg (09/18/2022) Referrals Referrals: Genet Cool MD [Primary Care Provider] -
[2022-12-01 02:56] LABS: Basophils # (auto) 0.06 K/uL (0-0.2); Basophils % (auto) 0.8 %; Eosinophils # (auto) 0.18 K/uL (0-0.50); Eosinophils % (auto) 2.4 %; Hematocrit (blood only) 27.8 % (42.0-52.0); Immature Granulocytes # (auto) 0.04 K/uL (0.01-0.20); Immature Granulocytes % (auto) 0.5 %; Lymphocytes # (auto) 1.25 K/uL (1.2-3.4); Mean Corpuscular Hemoglobin 32.6 pg (25.0-34.0); Mean Corpuscular Hgb Conc 32.4 g/dL (32.0-36.0); Mean Corpuscular Volume 100.7 fL (80.0-100.0); Mean Platelet Volume 9.7 fL (9.4-12.4); Monocytes # (auto) 0.74 K/uL (0.11-0.59); Neutrophils % (auto) 69.3 %; Platelet Count 214 K/uL (130-400); RDW Coefficient of Variation 14.4 % (11.5-14.5); RDW Standard Deviation 52.7 fL (36.4-46.3); Red Blood Count 2.76 M/uL (4.70-6.10); White Blood Count 7.37 K/ul (4.8-10.8)
[2022-12-01 03:22] LABS: Base Excess VBG 9.7 mEq/L; HCO3 VBG 35 mmol/L; Oxygen Saturation VBG < 60.0 %; PCO2 VBG 48 mmHg (38-50); PO2 VBG 33 mmHg; pH VBG 7.47 (7.36-7.41)
[2022-12-01 03:34] LABS: Albumin Globulin Ratio 1.3 (0.9-2); Albumin Level 3.5 gm/dl (3.4-5.0); BUN Creatinine Ratio 5.8 (10-20); Bilirubin,Total 0.5 mg/dl (0.2-1.0); Calcium 7.5 mg/dl (8.6-10.3); Creatinine Clr Calc Pharmacy 10.5 ml/min; Est GFR (African American) 8.3 ml/min; Est GFR (Non-African American) 7.2 ml/min; Globulin 2.6 gm/dl (2.5-4.0); Magnesium 2.1 mg/dl (1.7-2.4); Potassium 3.1 mmol/L (3.5-5.1); Total Protein 6.1 gm/dl (6.0-8.3); Troponin I High Sensitivity 60.7 pg/ml (0-20)
--- NOTE | 2022-12-01 04:52 | CT Scan Report ---
Exam(s): CT CHEST Without Contrast EXAM: CT Chest Without Intravenous Contrast CLINICAL HISTORY: Reason for exam: sob, ESRD. TECHNIQUE: Axial computed tomography images of the chest without intravenous contrast. CTDI is 9.65 mGy and DLP is 354.87 mGy-cm. Automated exposure control was utilized for the study. A dose lowering technique was utilized adhering to the principles of ALARA. COMPARISON: CT fibroid 2021 FINDINGS: Lungs: See below. Pleural space: There is a small to moderate size left pleural effusion. Extensive fluid extends into the left major fissure. Very small right pleural effusion. No pneumothorax. Heart: Cardiomegaly. Scattered atherosclerotic calcification of the coronary arteries. No significant pericardial effusion. Bones/joints: Unremarkable. No acute fracture. No dislocation. Soft tissues: Unremarkable. Vasculature: There is a generalized prominence of syncytial markings and vessels, particularly in the lung bases. This appears to represent volume overload. No focal consolidation is evident. Lymph nodes: Unremarkable. No enlarged lymph nodes. IMPRESSION: Generalized prominence of vessels and interstitial markings, particularly in the lung bases. This likely represents volume overload. Bilateral pleural effusions, larger on the left where extensive fluid extends into the left major fissure. Electronically signed by: Godwin Hayes MD 12/01/22 04:52 AM
[2022-12-01] MEDS ORDERED: POTASSIUM CHLORIDE CRTAB 20 MEQ TABCR PO STA (05:40)
--- NOTE | 2022-12-01 06:06 | History & Physical Report ---
Date of Service December 01, 2022 Assessment & Plan (1) COVID-19: Plan: 52 yo male with PMHx of pleural effusion, ESRD on dialysis, DM1, diabetic gastroparesis, diabetic retinopathy, HTN, HLD, CAD, GERD, anxiety, depression, and anemia of chronic disease presents with shortness of breath. #Covid #Pleural effusion -presented with a few hours of shortness of breath. Tested +covid in ED. HR wnl. O2 sat in low 90s on RA. -CXR with moderate L pleural effusion -Chest CT w/o contrast: Generalized prominence of vessels and interstitial markings, particularly in the lung bases. Bilateral pleural effusions L>R. -patient does have h/o L pleural effusion requiring pleurex cath in 2020. Pulmonary consulted. -defer steroids at this time due to elevated BSG -duonebs ordered #ESRD on dialysis -on dialysis MWF schedule, follows with Risa. Cr 7.81 on admission. -would be due for dialysis today. Nephrology consulted. #H/o pulmonary embolism (2020) -presented with sob and L leg cramping. Previous PE treated with warfarin for 6 months. -CT chest noncontrast with bilateral pleural effusion -d-dimer pending -US bilateral LE pending -consider CTA prior to dialysis if warranted, especially given pt h/o #Elevated troponin -60 on admission. Likely due to demand. EKG without ischemic changes. Trend. #Anemia, chronic -hgb 9 on admission. Likely due to chronic disease and CKD. MCV 100. -iron studies pending -B12 and folate pending #DM1 -BSG 400 on admission -cont. lantus 17 units qam + SSI #HTN -cont. hydralazine, amlodipine, carvedilol, losartan #HLD -cont. statin #Anxiety #Depression -cont. sertraline, bupropion, mirtazapine #GERD -cont. pantoprazole DVT ppx: heparin SQ FEN/GI: DM1, renal Code Status: full Dispo: PCU (2) Pleural effusion, bilateral: (3) Dialysis patient: (4) Diabetic peripheral neuropathy associated with type 1 diabetes mellitus: (5) Diabetic gastroparesis: (6) 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, with long-term current use of insulin: (7) Hypertension: (8) Diabetic retinopathy: (9) Chronic pleural effusion: (10) CAD (coronary artery disease): (11) GERD (gastroesophageal reflux disease): (12) Anxiety: (13) ESRD (end stage renal disease): (14) Depression: (15) Anemia of chronic disease: (16) Elevated troponin: History of Present Illness Chief Complaint: shortness of breath Primary Care Provider: Genet Cool MD 52 yo male with PMHx of pleural effusion, pulmonary embolism, ESRD on dialysis, DM1, diabetic gastroparesis, diabetic retinopathy, HTN, HLD, CAD, GERD, anxiety, depression, and anemia of chronic disease presents with shortness of breath. Around midnight patient was lying on his stomach and suddenly became short of breath. He does endorse some left lower extremity cramping at the time. Also with associated dry cough and fatigue. Denies fever, congestion, chest pain, abdominal pain, dysuria, constipation, diarrhea, nausea, vomiting. Denies any recent travel but cannot sit for up to 4 hours during dialysis treatments. He does have a history of pulmonary embolism back in 2020 with coinciding pleural effusion which required pleurx catheter at the time. Allergies Allergy/AdvReac Type Severity Reaction Status Date / Time shellfish derived Allergy Severe anaphylaxis Verified 12/08/22 15:03 codeine Allergy Intermediate Hives Verified 12/08/22 15:03 promethazine Allergy Intermediate itchy/hives Verified 12/08/22 15:03 Home Medications Medication Instructions Recorded Confirmed Type acetaminophen 325 mg capsule 650 mg PO Q4H PRN Pain (Scale 09/28/20 12/08/22 History Score 1-3) carvedilol 25 mg tablet 50 mg PO BID 10/01/20 12/08/22 History lorazepam 0.5 mg tablet 0.5 mg PO Q6H PRN Anxiety #60 tabs 03/27/21 12/08/22 Rx insulin aspart U-100 100 unit/mL 5 unit (0.05 mL) subcut TIDM PRN 10/24/21 12/08/22 Rx (3 mL) subcutaneous pen (Novolog sliding scale #15 mL FlexPen U-100 Insulin aspart) cholecalciferol (vitamin D3) 50 50 mcg PO QAM 10/25/21 12/08/22 History mcg (2,000 unit) capsule (Vitamin D3) sertraline 100 mg tablet 100 mg PO QAM 12/29/21 12/08/22 History sertraline 25 mg tablet 25 mg PO QAM 12/29/21 12/08/22 History sucroferric oxyhydroxide 500 mg 1,000 mg PO TIDM 12/29/21 12/08/22 History chewable tablet (Velphoro) amlodipine 10 mg tablet 10 mg PO QAM 03/01/22 12/08/22 History losartan 100 mg tablet 100 mg PO QAM #90 tabs 06/05/22 12/08/22 Rx insulin glargine 100 unit/mL (3 17 unit subcut QAM 07/20/22 12/08/22 History mL) subcutaneous pen (Basaglar KwikPen U-100 Insulin) pantoprazole 40 mg tablet,delayed 40 mg PO BIDM 07/20/22 12/08/22 History release atorvastatin 10 mg tablet 10 mg PO QAM #90 tabs 08/11/22 12/08/22 Rx ondansetron HCl 4 mg tablet 8 mg PO Q4 PRN nausea or vomiting 08/14/22 12/08/22 Rx #60 tabs bupropion HCl 100 mg tablet 125 mg PO QAM 09/18/22 12/08/22 History melatonin 1 mg tablet 4 mg PO HS PRN 09/18/22 12/08/22 History trimethobenzamide 300 mg capsule 300 mg PO TID PRN nausea and 09/23/22 12/08/22 History vomiting hydralazine 50 mg tablet 50 mg PO BID 10/21/22 12/08/22 History mirtazapine 7.5 mg tablet 15 mg PO HS #60 tabs 10/21/22 12/08/22 Rx pen needle, diabetic 31 gauge x #500 ea 12/08/22 12/08/22 Rx 10/21" (Comfort EZ Pen Hestand) Past Med/Surg History Medical History Anemia of chronic disease Anxiety AV fistula left upper arm CAD (coronary artery disease) mild, non-obstructive CAD per 10/2018 cardiac cath> [facility] Chronic pleural effusion PleurX catheter placed 01/24/21--removed 07/2021 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 Lor Guadalupe; [facility]) GERD (gastroesophageal reflux disease) History of nephrolithiasis History of pulmonary embolism 11/2020; unk etiology; was on warfarin (taken off 05/2021) Hypertension Hypertensive emergency Hypertensive urgency Junctional rhythm Kidney stone on right side Lumbar radiculopathy Nausea & vomiting Palliative care encounter Personal history of diabetic foot ulcer Urolithiasis Surgical History H/O shoulder surgery RIGHT History of appendectomy History of cardiac cath 10/2018= no stents, no obstructive disease (at [facility]) History of cataract surgery History of esophagogastroduodenoscopy (EGD) (~03/08/20) History of hip surgery left HIP ARTHROSCOPY History of lithotripsy History of open reduction and internal fixation (ORIF) procedure right hip Nausea and vomiting after administration of anesthetic agent S/P arteriovenous (AV) fistula creation Family History Grandfather Myocardial infarction Grandfather (Maternal) Family history of diabetes mellitus Uncle Myocardial infarction Father Hypertension Mother Kidney stone Other No family history of adverse response to anesthesia Denies family history of Colon cancer Ovarian cancer Prostate cancer Breast cancer Social History Smoking Status: Never smoker Tobacco Type: Cigarettes Second Hand Exposure: No; Do You Dip or Chew Tobacco: Yes (quit 2018); Hx Alcohol Use: No Hx Substance Use: No Preferred Language: Citizen Of [place] Communication Ability: Effective Communication Ability Comment: PT CURRENTLY AT [facility] Visual Impairment: No Limitations Hearing Ability: Normal Wooden Box Maker Required: No Beliefs That Will Affect Care: None marital status: Current Living Situation: Family Current Living Situation Comment: single story home with parents current occupational status: disabled How many Children do You have: 2 Feels Safe at Home: Yes Childhood Exposure to Second-Hand Smoke: Yes Dental Care, Regularly: No Physical Activity Frequency: 1-2 Times per Week Seatbelt Use: always Sunscreen Use: No Assistive Devices: None Review of Systems Review of Systems: All systems reviewed & are unremarkable except as noted in HPI & below Physical Exam Physical Exam: Constitutional: in no acute distress, pleasant, intact memory. AOx3. Vitals as above. HEENT: No scleral injection or discharge.Dry mucous membranes. Clear oropharynx. Neck: Supple without lymphadenopathy or thyromegaly. Trachea midline. Lungs: Mild diffuse wheezes with rales L>R. Cardiac: Regular rate and rhythm. No murmurs. No extremity edema. 2+ distal peripheral pulses. Abdomen: Bowel sounds present. Soft, nontender, and nondistended.No guarding. No hepatosplenomegaly. MSK: No cyanosis or clubbing. Extremities motor strength 5/5. Neg [place] bilaterally. Mildly tender L calf. Skin: No rashes, warm, dry. Neurologic: no focal deficits Results & Data Results & Data Vital Signs (Past 12 Hours) Vital Signs Temp Pulse Resp BP Pulse Ox O2 Del Method O2 Flow Rate 12/01/22 06:00 71 12/01/22 05:30 72 16 97 Nasal Cannula 2 12/01/22 05:30 178/68 H 12/01/22 05:00 76 22 97 12/01/22 05:00 182/81 H 12/01/22 04:30 75 17 96 12/01/22 04:30 188/90 H 12/01/22 04:00 76 17 95 12/01/22 04:00 187/81 H 12/01/22 03:30 79 21 93 Nasal Cannula 2 12/01/22 03:30 181/135 H 12/01/22 03:00 94 Room Air 12/01/22 03:03 80 18 202/82 H 91 Room Air 12/01/22 03:00 81 10 L 12/01/22 02:30 78 13 201/89 H 92 Room Air 12/01/22 02:01 80 14 95 Room Air 12/01/22 01:37 92 Room Air 12/01/22 02:04 81 12/01/22 01:23 36.8 C 86 22 193/85 H 97 Room Air Laboratory Results Laboratory Results WBC 7.37 K/ul (4.8-10.8) 12/01/22 02:40 RBC 2.76 M/uL (4.70-6.10) L 12/01/22 02:40 Hgb 9.0 g/dl (14.0-18.0) L 12/01/22 02:40 Hct 27.8 % (42.0-52.0) L 12/01/22 02:40 MCV 100.7 fL (80.0-100.0) H 12/01/22 02:40 MCH 32.6 pg (25.0-34.0) 12/01/22 02:40 MCHC 32.4 g/dL (32.0-36.0) 12/01/22 02:40 RDW Std Deviation 52.7 fL (36.4-46.3) H 12/01/22 02:40 RDW Coeff of Kami 14.4 % (11.5-14.5) 12/01/22 02:40 Plt Count 214 K/uL (130-400) 12/01/22 02:40 MPV 9.7 fL (9.4-12.4) 12/01/22 02:40 Immature Gran % (Auto) 0.5 % 12/01/22 02:40 Neut % (Auto) 69.3 % 12/01/22 02:40 Lymph % (Auto) 17.0 % 12/01/22 02:40 [place] % (Auto) 10.0 % 12/01/22 02:40 Eos % (Auto) 2.4 % 12/01/22 02:40 Baso % (Auto) 0.8 % 12/01/22 02:40 Neut # (Auto) 5.10 K/uL (1.40-6.50) 12/01/22 02:40 Lymph # (Auto) 1.25 K/uL (1.2-3.4) 12/01/22 02:40 [place] # (Auto) 0.74 K/uL (0.11-0.59) H 12/01/22 02:40 Eos # (Auto) 0.18 K/uL (0-0.50) 12/01/22 02:40 Baso # (Auto) 0.06 K/uL (0-0.2) 12/01/22 02:40 Immature Gran # (Auto) 0.04 K/uL (0.01-0.20) 12/01/22 02:40 VBG pH 7.47 (7.36-7.41) H 12/01/22 03:13 VBG pCO2 48 mmHg (38-50) 12/01/22 03:13 VBG pO2 33 mmHg 12/01/22 03:13 VBG HCO3 35 mmol/L 12/01/22 03:13 VBG O2 Saturation < 60.0 % 12/01/22 03:13 VBG Base Excess 9.7 mEq/L 12/01/22 03:13 Sodium 132 mmol/L (136-145) L 12/01/22 02:40 Potassium 3.1 mmol/L (3.5-5.1) L 12/01/22 02:40 Chloride 90 mmol/L (98-107) L 12/01/22 02:40 Carbon Dioxide 30 mmol/L (21-32) 12/01/22 02:40 Anion Gap 12 (3-11) H 12/01/22 02:40 BUN 45 mg/dl (6-23) H 12/01/22 02:40 Creatinine 7.81 mg/dl (0.6-1.4) H* 12/01/22 02:40 Est Cr Clr Drug Dosing 10.5 ml/min 12/01/22 02:40 Est GFR ( Amer) 8.3 ml/min 12/01/22 02:40 Est GFR (Non-Af Amer) 7.2 ml/min 12/01/22 02:40 BUN/Creatinine Ratio 5.8 (10-20) L 12/01/22 02:40 Glucose 392 mg/dl (70-99(Fasting)) H* 12/01/22 02:40 POC Glucose 464 mg/dl (70-99) H* 12/01/22 01:53 Calcium 7.5 mg/dl (8.6-10.3) L 12/01/22 02:40 Magnesium 2.1 mg/dl (1.7-2.4) 12/01/22 02:40 Total Bilirubin 0.5 mg/dl (0.2-1.0) 12/01/22 02:40 AST 23 U/L (13-39) 12/01/22 02:40 ALT 17 U/L (7-52) 12/01/22 02:40 Alkaline Phosphatase 106 U/L (34-104) H 12/01/22 02:40 Troponin I High Sens 60.7 pg/ml (0-20) H* 12/01/22 02:40 B-Natriuretic Peptide 2896 pg/ml (0-100) H 12/01/22 02:40 Total Protein 6.1 gm/dl (6.0-8.3) 12/01/22 02:40 Albumin 3.5 gm/dl (3.4-5.0) 12/01/22 02:40 Globulin 2.6 gm/dl (2.5-4.0) 12/01/22 02:40 Albumin/Globulin Ratio 1.3 (0.9-2) 12/01/22 02:40 SARS-CoV-2 (PCR) POSITIVE (Negative) A* 12/01/22 02:[address] 12/01/22 02:19 Exam(s): CT CHEST Without Contrast EXAM: CT Chest Without Intravenous Contrast CLINICAL HISTORY: Reason for exam: sob, ESRD. TECHNIQUE: Axial computed tomography images of the chest without intravenous contrast. CTDI is 9.65 mGy and DLP is 354.87 mGy-cm. Automated exposure control was utilized for the study. A dose lowering technique was utilized adhering to the principles of ALARA. COMPARISON: CT fibroid 2021 FINDINGS: Lungs: See below. Pleural space: There is a small to moderate size left pleural effusion. Extensive fluid extends into the left major fissure. Very small right pleural effusion. No pneumothorax. Heart: Cardiomegaly. Scattered atherosclerotic calcification of the coronary arteries. No significant pericardial effusion. Bones/joints: Unremarkable. No acute fracture. No dislocation. Soft tissues: Unremarkable. Vasculature: There is a generalized prominence of syncytial markings and vessels, particularly in the lung bases. This appears to represent volume overload. No focal consolidation is evident. Lymph nodes: Unremarkable. No enlarged lymph nodes. IMPRESSION: Generalized prominence of vessels and interstitial markings, particularly in the lung bases. This likely represents volume overload. Bilateral pleural effusions, larger on the left where extensive fluid extends into the left major fissure. Electronically signed by: Godwin Hayes MD 12/01/22 04:52 AM Code Status & VTE Plan VTE Prophylaxis Plan VTE Prophylaxis will be ordered: Yes Supervising Physician Co-Signing Physician Notes Attending addendum: I have physically seen this patient, have supervised the medical residents activities, and agree with the H&P unless as otherwise noted. Assessment and Plan: COVID-19 infection/pleural effusion- Primary presenting symptom was shortness of breath CT chest suggest bilateral pleural effusions, left greater than right History of Pleurx catheter in 2020 for drainage ultimately removed Duonebs every 4 hours while awake and every 2 hours when necessary. No direct treatment of COVID-19 indicated Pleural effusions may still be somewhat improved following dialysis and will be reassessed Consult pulmonology ESRD on HD- Dialysis on Thursday, Thursday and Thursday Will be due for dialysis this morning [facility] nephrology consulted History of pulmonary embolism- CTA chest prior to dialysis to assess for possible recurrence Elevated troponin- Highly sensitive troponin 60 Follow serially Remaining orders and notations as noted Resident Activity Tracking Resident Involvement: Resident Care Provided Care Provided: Adult Hospital Medicine (7) Hypertension Hypertension type: unspecified Qualified Code(s): I10 - Essential (primary) hypertension (10) CAD (coronary artery disease) Associated angina: without angina Coronary Disease-Associated Artery/Lesion type: [place] artery [place] vs. transplanted heart: [place] heart Qualified Code(s): I25.10 - Atherosclerotic heart disease of [place] coronary artery without angina pectoris (14) Depression Active/Remission status: remission status unspecified Depression Type: major depressive disorder Major depression recurrence: recurrent Qualified Code(s): F33.9 - Major depressive disorder, recurrent, unspecified
--- NOTE | 2022-12-01 06:57 | XRay Report ---
SINGLE VIEW CHEST CLINICAL HISTORY: Dyspnea FINDINGS: An AP, portable, upright chest radiograph is compared to study dated 09/12/2022. Correlation is made with chest CT dated 12/01/2022. The heart is enlarged. There is pulmonary vascular congestion. Interstitial thickening suggests pulmonary edema. Airspace consolidation is seen in the left mid to lower lung. A small left pleural effusion is suspected. No pneumothorax is seen. The skeletal structu res are osteopenic. The bony thorax is grossly intact. IMPRESSION: 1. Cardiomegaly with evidence of congestive failure. 2. Left pleural effusion with left basilar consolidation. Correlate clinically for evidence of a supe rimposed pneumonia. Radiographic follow-up to resolution is recommended. ACT 112: Negative or not required by law. Electronically signed by: Dev Burden M.D. 12/01/2022 6:55 AM
[2022-12-01] MEDS ORDERED: CARBOHYDRATES FOR HYPOGLYCEMIA PO PRN (07:54)
[2022-12-01] MEDS ORDERED: GLUCAGON FOR INJ 1 MG VIAL SQ PRN (07:54)
[2022-12-01] MEDS ORDERED: GLUCOSE 10 TAB/TUBE PO PRN (07:54)
[2022-12-01] MEDS ORDERED: GLUCOSE 40% GEL 15 GM TUBE PO PRN (07:54)
[2022-12-01] MEDS ORDERED: DEXTROSE 50% 50 ML SYRINGE IV PRN (07:54)
[2022-12-01] MEDS ORDERED: ACETAMINOPHEN 325 MG TAB PO PRN (07:54)
[2022-12-01] MEDS ORDERED: MELATONIN 3 MG TAB PO PRN (08:11)
[2022-12-01] MEDS: ALBUT/IPRATROP 3MG/0.5MG NEB 3 ML VIAL NEB SCH ×5 (08:15→23:12)
[2022-12-01 09:12] LABS: Estimated Average Glucose 180 mg/dl; Hemoglobin A1C 7.9 % (4.5-5.6)
[2022-12-01] MEDS ORDERED: SODIUM CHLORIDE 0.9% 1000ML 1,000 ML IV PRN (09:26)
[2022-12-01] MEDS ORDERED: HEPARIN SOD (PORCINE) 1000 UNIT/ML IV ONE (09:26)
[2022-12-01] MEDS ORDERED: EPOETIN ALFA 10,000 UNITS/ML VIAL IV ONE (09:26)
[2022-12-01 09:37] LABS: Troponin I High Sensitivity 88.5 pg/ml (0-20)
[2022-12-01 09:41] LABS: D Dimer 710 ug/L FEU (0-500)
[2022-12-01 09:48] LABS: Ferritin 731.5 ng/ml (8-388)
--- NOTE | 2022-12-01 10:09 | Ultrasound Report ---
BILATERAL LOWER EXTREMITY VENOUS DOPPLER CLINICAL HISTORY: Covid. r/o DVT COMPARISON STUDY: Bilateral lower extremity venous Doppler ultrasound December 13, 2020. TECHNIQUE: Sonography of the deep venous system of the bilateral lower extremities was performed. Co mpression and augmentation were evaluated. FINDINGS: The bilateral common femoral, superficial femoral and popliteal veins were compressible. A ugmentation was normal. Flow was shown within the deep calf vessels. IMPRESSION: No evidence of deep venous thrombus within the bilateral lower extremities. ACT 112: Negative or not required by law. Electronically signed by: Gabino Cool M.D. 12/01/2022 10:08 AM
[2022-12-01] MEDS ORDERED: POTASSIUM CHLORIDE CRTAB 20 MEQ TABCR PO ONE ×2 (10:34→16:00)
[2022-12-01] MEDS: HEPARIN SOD (PORCINE) 1000 UNIT/ML IV SCH ×3 (11:04→13:18)
--- NOTE | 2022-12-01 11:19 | Pulmonary Consultation ---
Chart reviewed. Patient currently undergoing dialysis in a COVID-positive room so physical exam was deferred. Discussed with PA. Agree with assessment plan as noted. The patient CT scan demonstrates signs of fluid overload. He was not particularly hypoxemic and in no respiratory distress. The CT scan demonstrated small effusions which would not be amenable to thoracentesis. Agree with plans to pursue additional ultrafiltration and follow the patient clinically. With regards to his COVID. Agree that no intervention is required. He is not hypoxemic and would not recommend steroids or additional adjuvants at this point in time. Patient likely can be dismissed from the hospital once his acute dialysis needs have resolved. Feel free to contact us with questions or concerns Date of Consultation December 01, 2022 Assessment & Plan (1) COVID-19: (2) Chest pain: (3) Pleural effusion, bilateral: (4) Chronic pleural effusion: (5) ESRD (end stage renal disease): Plan Attending: Dr. Rob Impression: This is a 52-year-old male known to this service from 2021 when he had loculated left pleural effusion. Cytology was negative for malignancy. Patient did have mesothelial cells noted. Patient developed loculation and empyema. He had a Pleurx catheter placed and missed 2 protocol was implemented. Patient also had history of infection of the Pleurx catheter and this was removed. Patient typically follows with [facility] pulmonology division. Patient awoke last evening at midnight with shortness of breath while laying on his belly. He is found to be grossly fluid overloaded on chest x-ray as well as CT scan of the chest. Patient also does have what appears to be significant fluid in the fissure of the left lung. White blood cell count is not elevated. Patient does have an elevated troponin high-sensitivity. Procalcitonin level is pending. Recommendations: 1. Bilateral pleural effusions: * Is most likely due to fluid overload. Patient does have loculation on the left which is residual from previous recurrent pleural effusions. Patient may have a component of trapped lung * Not recommend surgical intervention at this time * Continue to titrate supplemental oxygen. Patient currently is on oxy mask. This can most likely be downgraded to nasal cannula * Considerable fluid overload on CT scan. Continue with hemodialysis * No indication for thoracentesis at this time 2. Acute hypoxia: * This is most likely multifactorial to congestive heart failure, pulmonary edema, fluid overload from chronic renal failure * Continue to titrate supplemental oxygen as tolerated * Continue with hemodialysis with ultrafiltration. Ultrafiltration typically targeted 2 to 2-1/2 L. At this time, dialysis orders called in for 3-1/2 L of ultrafiltration for dialysis today * Out of bed to chair as tolerated * Incentive spirometry * Venous blood gas today with no evidence of hypercapnia 3. ESRD: * Continue with hemodialysis as this most likely will benefit pulmonary status 4. COVID-19 infection: * Positive on PCR * Incidental finding. Patient with no symptoms of COVID. No loss of taste or smell. No increased cough. No sputum production. * No indication for antivirals or other intervention * Continue isolation per protocol * Continue supportive care Thank you for including us in the care of this patient. Please refer to Dr. Rob's addendum for further recommendations and corrections. History of Present Illness Reason for Consultation: Increase shortness of breath with hypoxia Attending Physician: Guevara Townsend MD History of Present Illness Attending: Dr. Rob Is a 52-year-old male with a history of type 1 diabetes mellitus, ESRD on hemodialysis, diastolic heart failure, history of pulmonary embolism, history of gastroparesis, cyclical vomiting, recurrent left-sided pleural effusion, previous Pleurx catheter, mesothelial cells and pleural fluid. Patient developed empyema in July 2021 which grew Staphylococcus. Patient follows with [facility] pulmonary medicine who coordinates pulmonary care and has managed previous recurrent pleural effusions. Patient was admitted to [facility] this morning. He was doing well yesterday. Around midnight last night he was laying on his stomach and suddenly became short of breath. Patient receives hemodialysis 3 times weekly. He reports he has not missed any dialysis sessions. Patient is not on any regular diuretics. Patient's ultrafiltration goal typically is 2 to 3 L. He is undergoing dialysis at this time with a ultrafiltration goal of 3.5 L. Patient reports that his breathing is much better. He is on supplemental oxygen. He was placed on an oxy mask but most likely would suffice on nasal cannula. Nursing will assess and change to nasal cannula and monitor. Patient was incidentally found to have COVID-19 infection. He currently is on isolation per protocol. Chest x-ray on admission showed left pleural effusion with left basilar consolidation. CT scan of the chest showed small to moderate size left pleural effusion. There is also a very small right pleural effusion. Lower extreme leg duplex was also performed and shows no evidence of DVT within the bilateral lower extremities. Patient denies any ongoing chest pain. Patient is hypertensive and currently receiving hemodialysis. Allergies Allergy/AdvReac Type Severity Reaction Status Date / Time shellfish derived Allergy Severe anaphylaxis Verified 11/18/22 08:39 codeine Allergy Intermediate Hives Verified 11/18/22 08:39 promethazine Allergy Intermediate itchy/hives Verified 11/18/22 08:39 Home Medications Medication Instructions Recorded Confirmed Type acetaminophen 325 mg capsule 650 mg PO Q4H PRN Pain (Scale 09/28/20 11/18/22 History Score 1-3) carvedilol 25 mg tablet 50 mg PO BID 10/01/20 11/18/22 History lorazepam 0.5 mg tablet 0.5 mg PO Q6H PRN Anxiety #60 tabs 03/27/21 11/18/22 Rx insulin aspart U-100 100 unit/mL 5 unit (0.05 mL) subcut TIDM PRN 10/24/21 11/18/22 Rx (3 mL) subcutaneous pen (Novolog sliding scale #15 mL FlexPen U-100 Insulin aspart) cholecalciferol (vitamin D3) 50 50 mcg PO QAM 10/25/21 11/18/22 History mcg (2,000 unit) capsule (Vitamin D3) pen needle, diabetic 32 gauge x #500 ea 12/17/21 11/18/22 Rx 5/32" (BD Ultra-Fine Annalise Pen Needle) sertraline 100 mg tablet 100 mg PO QAM 12/29/21 11/18/22 History sertraline 25 mg tablet 25 mg PO QAM 12/29/21 11/18/22 History sucroferric oxyhydroxide 500 mg 1,000 mg PO TIDM 12/29/21 11/18/22 History chewable tablet (Velphoro) amlodipine 10 mg tablet 10 mg PO QAM 03/01/22 11/18/22 History losartan 100 mg tablet 100 mg PO QAM #90 tabs 06/05/22 11/18/22 Rx insulin glargine 100 unit/mL (3 17 unit subcut QAM 07/20/22 11/18/22 History mL) subcutaneous pen (Basaglar KwikPen U-100 Insulin) pantoprazole 40 mg tablet,delayed 40 mg PO BIDM 07/20/22 11/18/22 History release atorvastatin 10 mg tablet 10 mg PO QAM #90 tabs 08/11/22 11/18/22 Rx ondansetron HCl 4 mg tablet 8 mg PO Q4 PRN nausea or vomiting 08/14/22 11/18/22 Rx #60 tabs bupropion HCl 100 mg tablet 125 mg PO QAM 09/18/22 11/18/22 History melatonin 1 mg tablet 4 mg PO HS PRN 09/18/22 11/18/22 History trimethobenzamide 300 mg capsule 300 mg PO TID PRN nausea and 09/23/22 11/18/22 History vomiting hydralazine 50 mg tablet 50 mg PO BID 10/21/22 11/18/22 History mirtazapine 7.5 mg tablet 15 mg PO HS #60 tabs 10/21/22 11/18/22 Rx Patient History Medical History Anemia of chronic disease Anxiety AV fistula left upper arm CAD (coronary artery disease) mild, non-obstructive CAD per 10/2018 cardiac cath> [facility] Chronic pleural effusion PleurX catheter placed 01/24/21--removed 07/2021 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 Lor Guadalupe; [facility]) GERD (gastroesophageal reflux disease) History of nephrolithiasis History of pulmonary embolism 11/2020; unk etiology; was on warfarin (taken off 05/2021) Hypertension Hypertensive emergency Hypertensive urgency Junctional rhythm Kidney stone on right side Lumbar radiculopathy Nausea & vomiting Palliative care encounter Personal history of diabetic foot ulcer Urolithiasis Surgical History H/O shoulder surgery RIGHT History of appendectomy History of cardiac cath 10/2018= no stents, no obstructive disease (at [facility]) History of cataract surgery History of esophagogastroduodenoscopy (EGD) (~03/08/20) History of hip surgery left HIP ARTHROSCOPY History of lithotripsy History of open reduction and internal fixation (ORIF) procedure right hip Nausea and vomiting after administration of anesthetic agent S/P arteriovenous (AV) fistula creation Family History Grandfather Myocardial infarction Grandfather (Maternal) Family history of diabetes mellitus Uncle Myocardial infarction Father Hypertension Mother Kidney stone Other No family history of adverse response to anesthesia Denies family history of Colon cancer Ovarian cancer Prostate cancer Breast cancer Social History Smoking Status: Never smoker Tobacco Type: Cigarettes Second Hand Exposure: No; Do You Dip or Chew Tobacco: Yes (quit 2019); Hx Alcohol Use: No Hx Substance Use: No Preferred Language: [place] Citizen Communication Ability: Effective Communication Ability Comment: PT CURRENTLY AT [facility] Visual Impairment: No Limitations Hearing Ability: Normal 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 Beliefs That Will Affect Care: None marital status: Current Living Situation: Family Current Living Situation Comment: single story home with parents current occupational status: disabled How many Children do You have: 2 Other Information That Helps Us Care for You: No Feels Safe at Home: Yes Safety Concerns: Feels Safe At This Time Childhood Exposure to Second-Hand Smoke: Yes Dental Care, Regularly: No Physical Activity Frequency: 1-2 Times per Week Seatbelt Use: always Sunscreen Use: No Assistive Devices: Denture - Upper and Glasses Review of Systems Review of Systems: A total of 10 systems was reviewed and is negative other than as listed in the HPI Physical Exam Physical Exam: GENERAL : No acute distress EYES: No icterus, gaze conjugate NOSE: No evidence of epistaxis MOUTH: No lesions or candidiasis NECK: Supple LUNGS: Bibasilar Rales. No appreciation of rhonchi. No appreciation of bronchospasm. Patient has breath sounds to the bilateral bases. HEART: Regular, rate controlled ABDOMEN: Soft, NT, ND, BS Present EXTREMITIES: No LE edema, pedal pulses intact NEURO: A&OX3 Results & Data Results & Data Vital Signs (Past 12 Hours) Vital Signs Temp Pulse Pulse Pulse Resp BP BP 12/01/22 11:00 81 213/94 H 12/01/22 07:54 72 12/01/22 07:54 12/01/22 10:30 80 208/95 H 12/01/22 10:17 80 208/95 H 12/01/22 10:06 36.8 C 82 12/01/22 08:04 77 15 12/01/22 07:41 36.6 C 76 20 193/81 H 12/01/22 06:30 70 21 12/01/22 06:30 171/80 H 12/01/22 06:00 72 21 12/01/22 06:00 180/79 H 12/01/22 06:49 72 24 171/80 H 12/01/22 06:00 71 12/01/22 05:30 72 16 12/01/22 05:30 178/68 H 12/01/22 05:00 76 22 12/01/22 05:00 182/81 H 12/01/22 04:30 75 17 12/01/22 04:30 188/90 H 12/01/22 04:00 76 17 12/01/22 04:00 187/81 H 12/01/22 03:30 79 21 12/01/22 03:30 181/135 H 12/01/22 03:00 12/01/22 03:03 80 18 202/82 H 12/01/22 03:00 81 10 L 12/01/22 02:30 78 13 201/89 H 12/01/22 02:01 80 14 12/01/22 01:37 12/01/22 02:04 81 12/01/22 01:23 36.8 C 86 22 193/85 H Pulse Ox O2 Del Method O2 Flow Rate 12/01/22 11:00 12/01/22 07:54 12/01/22 07:54 Oxymask 4 12/01/22 10:30 12/01/22 10:17 12/01/22 10:06 12/01/22 08:04 93 Oxymask 4 12/01/22 07:41 97 Room Air 12/01/22 06:30 100 12/01/22 06:30 Oxymask 6 12/01/22 06:00 95 12/01/22 06:00 12/01/22 06:49 95 Oxymask 6 12/01/22 06:00 12/01/22 05:30 97 Nasal Cannula 2 12/01/22 05:30 12/01/22 05:00 97 12/01/22 05:00 12/01/22 04:30 96 12/01/22 04:30 12/01/22 04:00 95 12/01/22 04:00 12/01/22 03:30 93 Nasal Cannula 2 12/01/22 03:30 12/01/22 03:00 94 Room Air 12/01/22 03:03 91 Room Air 12/01/22 03:00 12/01/22 02:30 92 Room Air 12/01/22 02:01 95 Room Air 12/01/22 01:37 92 Room Air 12/01/22 02:04 12/01/22 01:23 97 Room Air Critical Care Results & Data Vital Signs (Past 12 Hours) Vital Signs Temp Pulse Pulse Pulse Resp BP BP 12/01/22 11:00 81 213/94 H 12/01/22 07:54 72 12/01/22 07:54 12/01/22 10:30 80 208/95 H 12/01/22 10:17 80 208/95 H 12/01/22 10:06 36.8 C 82 12/01/22 08:04 77 15 12/01/22 07:41 36.6 C 76 20 193/81 H 12/01/22 06:30 70 21 12/01/22 06:30 171/80 H 12/01/22 06:00 72 21 12/01/22 06:00 180/79 H 12/01/22 06:49 72 24 171/80 H 12/01/22 06:00 71 12/01/22 05:30 72 16 12/01/22 05:30 178/68 H 12/01/22 05:00 76 22 12/01/22 05:00 182/81 H 12/01/22 04:30 75 17 12/01/22 04:30 188/90 H 12/01/22 04:00 76 17 12/01/22 04:00 187/81 H 12/01/22 03:30 79 21 12/01/22 03:30 181/135 H 12/01/22 03:00 12/01/22 03:03 80 18 202/82 H 12/01/22 03:00 81 10 L 12/01/22 02:30 78 13 201/89 H 12/01/22 02:01 80 14 06/26/23 01:37 12/01/22 02:04 81 12/01/22 01:23 36.8 C 86 22 193/85 H Pulse Ox O2 Del Method O2 Flow Rate 12/01/22 11:00 12/01/22 07:54 12/01/22 07:54 Oxymask 4 12/01/22 10:30 12/01/22 10:17 12/01/22 10:06 12/01/22 08:04 93 Oxymask 4 12/01/22 07:41 97 Room Air 12/01/22 06:30 100 12/01/22 06:30 Oxymask 6 12/01/22 06:00 95 12/01/22 06:00 12/01/22 06:49 95 Oxymask 6 12/01/22 06:00 12/01/22 05:30 97 Nasal Cannula 2 12/01/22 05:30 12/01/22 05:00 97 12/01/22 05:00 12/01/22 04:30 96 12/01/22 04:30 12/01/22 04:00 95 12/01/22 04:00 12/01/22 03:30 93 Nasal Cannula 2 12/01/22 03:30 12/01/22 03:00 94 Room Air 12/01/22 03:03 91 Room Air 12/01/22 03:00 12/01/22 02:30 92 Room Air 12/01/22 02:01 95 Room Air 12/01/22 01:37 92 Room Air 12/01/22 02:04 12/01/22 01:23 97 Room Air Lab & Micro Results (Past 24 Hours) RBC 2.76 M/uL (4.70-6.10) L 12/01/22 WBC 7.37 K/ul (4.8-10.8) 12/01/22 Hgb 9.0 g/dl (14.0-18.0) L 12/01/22 Hct 27.8 % (42.0-52.0) L 12/01/22 MCV 100.7 fL (80.0-100.0) H 12/01/22 MCH 32.6 pg (25.0-34.0) 12/01/22 MCHC 32.4 g/dL (32.0-36.0) 12/01/22 RDW Standard Deviation 52.7 fL (36.4-46.3) H 12/01/22 RDW Coefficient of Variation 14.4 % (11.5-14.5) 12/01/22 Plt Count 214 K/uL (130-400) 12/01/22 MPV 9.7 fL (9.4-12.4) 12/01/22 Neutrophils (%) (Auto) 69.3 % 12/01/22 Lymphocytes (%) (Auto) 17.0 % 12/01/22 Monocytes # (Auto) 0.74 K/uL (0.11-0.59) H 12/01/22 Eosinophils # (Auto) 0.18 K/uL (0-0.50) 12/01/22 Immature Granulocyte % (Auto) 0.5 % 12/01/22 Neutrophils # (Auto) 5.10 K/uL (1.40-6.50) 12/01/22 Lymphocytes # (Auto) 1.25 K/uL (1.2-3.4) 12/01/22 Monocytes # (Auto) 0.74 K/uL (0.11-0.59) H 12/01/22 Eosinophils # (Auto) 0.18 K/uL (0-0.50) 12/01/22 Basophils # (Auto) 0.06 K/uL (0-0.2) 12/01/22 Immature Granulocyte # (Auto) 0.04 K/uL (0.01-0.20) 3 Na 132 mmol/L (136-145) L 12/01/22 K 3.1 mmol/L (3.5-5.1) L 12/01/22 Cl 90 mmol/L (98-107) L 12/01/22 CO2 30 mmol/L (21-32) 12/01/22 Anion Gap 12 (3-11) H 12/01/22 BUN 45 mg/dl (6-23) H 12/01/22 Creatinine 7.81 mg/dl (0.6-1.4) H* 12/01/22 Estimated GFR ( Amer) 8.3 ml/min 12/01/22 Estimated GFR (Non-Af Amer) 7.2 ml/min 12/01/22 BUN/Creatinine Ratio 5.8 (10-20) L 12/01/22 Glu 392 mg/dl (70-99(Fasting)) H* 12/01/22 Ca 7.5 mg/dl (8.6-10.3) L 12/01/22 Total Bilirubin 0.5 mg/dl (0.2-1.0) 12/01/22 AST 23 U/L (13-39) 12/01/22 ALT 17 U/L (7-52) 12/01/22 Alkaline Phosphatase 106 U/L (34-104) H 12/01/22 TP 6.1 gm/dl (6.0-8.3) 12/01/22 Albumin 3.5 gm/dl (3.4-5.0) 12/01/22 Globulin 2.6 gm/dl (2.5-4.0) 12/01/22 Albumin/Globulin Ratio 1.3 (0.9-2) 12/01/22 Mg 2.1 mg/dl (1.7-2.4) 12/01/22 02:40 Calcium Level 7.5 mg/dl (8.6-10.3) L 12/01/22 02:40 Venous Blood pH 7.47 (7.36-7.41) H 12/01/22 03:13 Venous Blood Partial Pressure CO2 48 mmHg (38-50) 12/01/22 03:1 3 Venous Blood Partial Pressure O2 33 mmHg 12/01/22 03:13 Venous Blood HCO3 35 mmol/L 12/01/22 03:13 Venous Blood Base Excess 9.7 mEq/L 12/01/22 03:13 Venous Blood Oxygen Saturation < 60.0 % 12/01/22 03:13 Diagnostic Findings (Past 24 Hours) Chest X-Ray 12/01/22 01:37 SINGLE VIEW CHEST CLINICAL HISTORY: Dyspnea FINDINGS: An AP, portable, upright chest radiograph is compared to study dated 09/12/2022. Correlation is made with chest CT dated 12/01/2022. The heart is enlarged. There is pulmonary vascular congestion. Interstitial thickening suggests pulmonary edema. Airspace consolidation is seen in the left mid to lower lung. A small left pleural effusion is suspected. No pneumothorax is seen. The skeletal structures are osteopenic. The bony thorax is grossly intact. IMPRESSION: 1. Cardiomegaly with evidence of congestive failure. 2. Left pleural effusion with left basilar consolidation. Correlate clinically for evidence of a superimposed pneumonia. Radiographic follow-up to resolution is recommended. ACT 112: Negative or not required by law. Electronically signed by: Dev Burden M.D. 12/01/2022 6:[address] 12/01/22 02:19 Exam(s): CT CHEST Without Contrast EXAM: CT Chest Without Intravenous Contrast CLINICAL HISTORY: Reason for exam: sob, ESRD. TECHNIQUE: Axial computed tomography images of the chest without intravenous contrast. CTDI is 9.65 mGy and DLP is 354.87 mGy-cm. Automated exposure control was utilized for the study. A dose lowering technique was utilized adhering to the principles of ALARA. COMPARISON: CT fibroid 2021 FINDINGS: Lungs: See below. Pleural space: There is a small to moderate size left pleural effusion. Extensive fluid extends into the left major fissure. Very small right pleural effusion. No pneumothorax. Heart: Cardiomegaly. Scattered atherosclerotic calcification of the coronary arteries. No significant pericardial effusion. Bones/joints: Unremarkable. No acute fracture. No dislocation. Soft tissues: Unremarkable. Vasculature: There is a generalized prominence of syncytial markings and vessels, particularly in the lung bases. This appears to represent volume overload. No focal consolidation is evident. Lymph nodes: Unremarkable. No enlarged lymph nodes. IMPRESSION: Generalized prominence of vessels and interstitial markings, particularly in the lung bases. This likely represents volume overload. Bilateral pleural effusions, larger on the left where extensive fluid extends into the left major fissure. Electronically signed by: Godwin Hayes MD 12/01/22 04:52 AM Venous Doppler Study 12/01/22 05:40 BILATERAL LOWER EXTREMITY VENOUS DOPPLER CLINICAL HISTORY: Covid. r/o DVT COMPARISON STUDY: Bilateral lower extremity venous Doppler ultrasound December 13, 2020. TECHNIQUE: Sonography of the deep venous system of the bilateral lower extremities was performed. Compression and augmentation were evaluated. FINDINGS: The bilateral common femoral, superficial femoral and popliteal veins were compressible. Augmentation was normal. Flow was shown within the deep calf vessels. IMPRESSION: No evidence of deep venous thrombus within the bilateral lower extremities. ACT 112: Negative or not required by law. Electronically signed by: Gabino Cool M.D. 12/01/2022 10:08 AM RT Ventilator Mngmt (Last Documented) Ventilator Ordered Settings Respiratory Rate 15 12/01/22 08:04 Ventilator - PT Measurements Respiratory Rate 15 PG Care Time/CCT Total # of Minutes Spent Total Time Spent with Patient: Total time spent is greater than 50% in coordination of care (as documented) at patient's floor/unit and/or counseling patient: 60 minutes Coding Level of Care Code 79844 IN/OBS CONSULT LVL 5,80M Diagnoses COVID-19 U07.1 Chest pain R07.9 Pleural effusion, bilateral J90 Chronic pleural effusion J90 ESRD (end stage renal disease) N18.6 Time Spent (min) 60
[2022-12-01] MEDS: LANTUS PER UNIT CHARGE SC SCH ×2 (13:39→15:49)
[2022-12-01] MEDS: INSULIN ASPART PER UNIT CHARGE SC SCH ×4 (13:39→20:29)
[2022-12-01] MEDS: buPROPion HCl 100 MG TABLET PO SCH (14:59)
[2022-12-01] MEDS: amLODIPine BESYLATE 5 MG TAB PO SCH (15:00)
[2022-12-01] MEDS: ATORVASTATIN 10 MG TAB PO SCH (15:00)
[2022-12-01] MEDS: carvediloL 25 MG TAB PO SCH ×2 (15:00→21:55)
[2022-12-01] MEDS: PANTOprazole 40 MG TAB PO SCH ×2 (15:00→17:33)
[2022-12-01] MEDS: hydrALAZINE TAB 50 MG TAB PO SCH ×2 (15:00→21:56)
[2022-12-01] MEDS: SERTRALINE HCL 50 MG TABLET PO SCH (15:00)
[2022-12-01] MEDS: SERTRALINE HCL 100 MG TABLET PO SCH (15:00)
[2022-12-01] MEDS: HEPARIN SOD 5,000 UNIT/0.5 ML VIAL SQ SCH ×2 (15:00→23:00)
[2022-12-01] MEDS: LOSARTAN POTASSIUM 50 MG TAB PO SCH (15:00)
[2022-12-01] MEDS ORDERED: Nursing to Pharmacy Communication SCH (16:00)
[2022-12-01] MEDS ORDERED: LORazepam 1 MG TAB PO STA (16:13)
--- NOTE | 2022-12-01 16:29 | Nephrology Consultation ---
Date of Consultation December 01, 2022 Assessment & Plan (1) ESRD (end stage renal disease): for routine HD today; tolerated aggressive UF w/ 3.4 L off defer to primary service but not clear to me that pt currently infectious since we are under 90 day window after + covid test -next HD for 12/02 d/t volume status; may need daily dialysis for some time -started 1.2 L fluid limit -recommend daily standing weights and so ordered (2) Pleural effusion, bilateral: evidence of volume overload on imaging; no PE; not a thoracentesis candidate currently; 02 needs improved post HD -trial of daily dialysis History of Present Illness Reason for Consultation: ESRD on HD Requesting Physician: Dr Townsend Attending Physician: Guevara Townsend MD History of Present Illness 52 y/o M whom I'm asked to see for dialysis needs was admitted today after presenting with shortness of breath and found to be covid positive. PMH includes cyclic vomiting syndrome requiring frequent hospital admissions, DM1 with proliferative retinopathy, ESRD on MWF HD via AVF, nonocclusive CAD, HTN w/ labile blood pressures and autonomic dysfunction, bilateral nephrolithiasis. A few years back he had a chronic pleural effusion requiring a pleurex for several months. Remote hx of PE no longer on AC; hx of Covid 07/2021. He dialyzes under my care at [facility] and does not miss treatments. He tested positive for covid by PCR in the [employer] system on 09/21/22, about a week after 48 hr admission there for cylical vomiting. Also admitted for similar GI issue at [facility] for 48 hrs in October. today he is again covid positive not surprisingly by PCR. I recently lowered his target weight at dialysis to 62.5 kg but he has been unable to hit this for past 2 treatments, including 11/28 and came off instead closer to 63.5. He had dialysis today under my care after admission and t olerated 3.4 L fluid removal. Allergies Allergy/AdvReac Type Severity Reaction Status Date / Time shellfish derived Allergy Severe anaphylaxis Verified 11/18/22 08:39 codeine Allergy Intermediate Hives Verified 11/18/22 08:39 promethazine Allergy Intermediate itchy/hives Verified 11/18/22 08:39 Home Medications Medication Instructions Recorded Confirmed Type acetaminophen 325 mg capsule 650 mg PO Q4H PRN Pain (Scale 04/23/21 06/13/23 History Score 1-3) carvedilol 25 mg tablet 50 mg PO BID 10/01/20 11/18/22 History lorazepam 0.5 mg tablet 0.5 mg PO Q6H PRN Anxiety #60 tabs 03/27/21 11/18/22 Rx insulin aspart U-100 100 unit/mL 5 unit (0.05 mL) subcut TIDM PRN 10/24/21 11/18/22 Rx (3 mL) subcutaneous pen (Novolog sliding scale #15 mL FlexPen U-100 Insulin aspart) cholecalciferol (vitamin D3) 50 50 mcg PO QAM 10/25/21 11/18/22 History mcg (2,000 unit) capsule (Vitamin D3) pen needle, diabetic 32 gauge x #500 ea 12/17/21 11/18/22 Rx 532" (BD Ultra-Fine Annalise Pen Needle) sertraline 100 mg tablet 100 mg PO QAM 12/29/21 11/18/22 History sertraline 25 mg tablet 25 mg PO QAM 12/29/21 11/18/22 History sucroferric oxyhydroxide 500 mg 1,000 mg PO TIDM 12/29/21 11/18/22 History chewable tablet (Velphoro) amlodipine 10 mg tablet 10 mg PO QAM 03/01/22 11/18/22 History losartan 100 mg tablet 100 mg PO QAM #90 tabs 06/05/22 11/18/22 Rx insulin glargine 100 unit/mL (3 17 unit subcut QAM 07/20/22 11/18/22 History mL) subcutaneous pen (Basaglar KwikPen U-100 Insulin) pantoprazole 40 mg tablet,delayed 40 mg PO BIDM 07/20/22 11/18/22 History release atorvastatin 10 mg tablet 10 mg PO QAM #90 tabs 08/11/22 11/18/22 Rx ondansetron HCl 4 mg tablet 8 mg PO Q4 PRN nausea or vomiting 08/14/22 11/18/22 Rx #60 tabs bupropion HCl 100 mg tablet 125 mg PO QAM 09/18/22 11/18/22 History melatonin 1 mg tablet 4 mg PO HS PRN 09/18/22 11/18/22 History trimethobenzamide 300 mg capsule 300 mg PO TID PRN nausea and 09/23/22 11/18/22 History vomiting hydralazine 50 mg tablet 50 mg PO BID 10/21/22 11/18/22 History mirtazapine 7.5 mg tablet 15 mg PO HS #60 tabs 10/21/22 11/18/22 Rx Patient History Medical History Anemia of chronic disease Anxiety AV fistula left upper arm CAD (coronary artery disease) mild, non-obstructive CAD per 10/2018 cardiac cath> [facility] Chronic pleural effusion PleurX catheter placed 01/24/21--removed 07/2021 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 Lor Guadalupe; [facility]) GERD (gastroesophageal reflux disease) History of nephrolithiasis History of pulmonary embolism 11/2020; unk etiology; was on warfarin (taken off 05/2021) Hypertension Hypertensive emergency Hypertensive urgency Junctional rhythm Kidney stone on right side Lumbar radiculopathy Nausea & vomiting Palliative care encounter Personal history of diabetic foot ulcer Urolithiasis Surgical History H/O shoulder surgery RIGHT History of appendectomy History of cardiac cath 10/2018= no stents, no obstructive disease (at [facility]) History of cataract surgery History of esophagogastroduodenoscopy (EGD) (~03/08/20) History of hip surgery left HIP ARTHROSCOPY History of lithotripsy History of open reduction and internal fixation (ORIF) procedure right hip Nausea and vomiting after administration of anesthetic agent S/P arteriovenous (AV) fistula creation Family History Grandfather Myocardial infarction Grandfather (Maternal) Family history of diabetes mellitus Uncle Myocardial infarction Father Hypertension Mother Kidney stone Other No family history of adverse response to anesthesia Denies family history of Colon cancer Ovarian cancer Prostate cancer Breast cancer Social History Smoking Status: Never smoker Tobacco Type: Cigarettes Second Hand Exposure: No; Do You Dip or Chew Tobacco: Yes (quit 2019); Hx Alcohol Use: No Hx Substance Use: No Preferred Language: Azerbaijani Communication Ability: Effective Communication Ability Comment: PT CURRENTLY AT [facility] Visual Impairment: No Limitations Hearing Ability: Normal Lawn Care Professional Required: No Beliefs That Will Affect Care: None marital status: Current Living Situation: Family Current Living Situation Comment: single story home with parents current occupational status: disabled How many Children do You have: 2 Other Information That Helps Us Care for You: No Feels Safe at Home: Yes Safety Concerns: Feels Safe At This Time Childhood Exposure to Second-Hand Smoke: Yes Dental Care, Regularly: No Physical Activity Frequency: 1-2 Times per Week Seatbelt Use: always Sunscreen Use: No Assistive Devices: Denture - Upper and Glasses Physical Exam Constitutional: well developed, well nourished, + thin, + frail appearing and cooperative; no acute distress Eyes: EOM intact bilaterally ENMT: Ears: no external ear abnormality Nose: no external nose abnormality Mouth: + dry oral mucous membranes Neck: no nuchal rigidity Respiratory: normal respiratory effort Auscultation: + diminished lung sounds (particularly L base) and + crackles (R posterior garcia adn diminished small R base) Cardiovascular: Rate/Rhythm: regular rate and regular rhythm Extremities: + AV fistula; no edema Gastrointestinal (Abdomen): Inspection/Auscultation: normal bowel sounds Percussion/Palpation: abdomen soft; abdomen nontender Musculoskeletal: Extremities: strength 5/5 throughout Skin: no rashes, warm and dry Neurologic: spicer, fluent speech, no tremor Results & Data Vital Signs (Past 12 Hours) Vital Signs Temp Pulse Pulse Pulse Resp BP BP 12/01/22 15:25 86 15 12/01/22 14:20 36.7 C 85 227/90 H 12/01/22 14:00 84 209/87 H 12/01/22 13:30 84 220/92 H 12/01/22 13:00 80 212/95 H 12/01/22 12:30 78 204/92 H 12/01/22 12:00 80 193/91 H 12/01/22 11:30 80 205/90 H 12/01/22 11:00 81 213/94 H 12/01/22 07:54 72 12/01/22 07:54 12/01/22 10:30 80 208/95 H 12/01/22 10:17 80 208/95 H 12/01/22 10:06 36.8 C 82 12/01/22 08:04 77 15 12/01/22 07:41 36.6 C 76 20 193/81 H 12/01/22 06:30 70 21 12/01/22 06:30 171/80 H 12/01/22 06:00 72 21 12/01/22 06:00 180/79 H 12/01/22 06:49 72 24 171/80 H 12/01/22 06:00 71 12/01/22 05:30 72 16 12/01/22 05:30 178/68 H 12/01/22 05:00 76 22 12/01/22 05:00 182/81 H 12/01/22 04:30 75 17 12/01/22 04:30 188/90 H Pulse Ox O2 Del Method O2 Flow Rate FiO2 12/01/22 15:25 95 Room Air 21 12/01/22 14:20 12/01/22 14:00 12/01/22 13:30 12/01/22 13:00 12/01/22 12:30 12/01/22 12:00 12/01/22 11:30 12/01/22 11:00 12/01/22 07:54 12/01/22 07:54 Oxymask 4 12/01/22 10:30 12/01/22 10:17 12/01/22 10:06 12/01/22 08:04 93 Oxymask 4 12/01/22 07:41 97 Room Air 12/01/22 06:30 100 12/01/22 06:30 Oxymask 6 12/01/22 06:00 95 12/01/22 06:00 12/01/22 06:49 95 Oxymask 6 12/01/22 06:00 12/01/22 05:30 97 Nasal Cannula 2 12/01/22 05:30 12/01/22 05:00 97 12/01/22 05:00 12/01/22 04:30 96 12/01/22 04:30 Laboratory Results 12/01/22 02:40 06/26/23 02:40 Diagnostic Findings cxr 1. Cardiomegaly with evidence of congestive failure. 2. Left pleural effusion with left basilar consolidation. Correlate clinically for evidence of a superimposed pneumonia. Radiographic follow-up to resolution is recommended. ct chest non con Lungs: See below. Pleural space: There is a small to moderate size left pleural effusion. Extensive fluid extends into the left major fissure. Very small right pleural effusion. No pneumothorax. Heart: Cardiomegaly. Scattered atherosclerotic calcification of the coronary arteries. No significant pericardial effusion. Bones/joints: Unremarkable. No acute fracture. No dislocation. Soft tissues: Unremarkable. Vasculature: There is a generalized prominence of syncytial markings and vessels, particularly in the lung bases. This appears to represent volume overload. No focal consolidation is evident. Lymph nodes: Unremarkable. No enlarged lymph nodes. IMPRESSION: Generalized prominence of vessels and interstitial markings, particularly in the lung bases. This likely represents volume overload. Bilateral pleural effusions, larger on the left where extensive fluid extends into the left major fissure.
[2022-12-01] MEDS ORDERED: OPTIRAY 320 125ml IV ONE (18:00)
--- NOTE | 2022-12-01 19:27 | CT Scan Report ---
CT angio chest PE protocol CLINICAL HISTORY: COVID+, h/o PE; r/o PE TECHNIQUE: Multidetector row helical CT of the chest was performed with angiographic protocol. Irizarry l and sagittal reformations were obtained. Coronal and sagittal MIPS were obtained from the axial roxi a set and were submitted for review. Automated dose lowering techniques and/or adjustment according to patient size were utilized for this exam. CT DOSE: 563.12 mGy.cm Comparison: Comparison is made to CTA chest 12/01/2022 FINDINGS: Lungs and pleura: Small bilateral pleural effusions, left greater than right, with associated atelect asis. Heart and pericardium: Heart size is normal. No pericardial effusion. Vessels: No evidence of pulmonary embolism. Mediastinum and sailaja: Unremarkable. Chest wall and lower neck: Unremarkable. Abdomen: Unremarkable. Bones: Degenerative changes in the thoracic spine. IMPRESSION: Small bilateral pleural effusions with underlying atelectasis. ACT 112: Negative or not required by law. Electronically signed by: Maninder Cohen M.D. 12/01/2022 7:25 PM
[2022-12-01] MEDS: MIRTAZAPINE TAB 15 MG TAB PO SCH (22:14)
[2022-12-02] MEDS: ALBUT/IPRATROP 3MG/0.5MG NEB 3 ML VIAL NEB SCH ×2 (02:11→07:30)
[2022-12-02] MEDS: ONDANSETRON 4 MG OD TAB PO PRN ×2 (04:24→09:27)
--- NOTE | 2022-12-02 07:17 | Communication Note ---
Date of Service: December 01, 2022 Saw patient just prior to him getting his CTA chest. He had received dialysis earlier in the day. Did report his dyspnea was improved. With respect to the + COVID test --> he reports having been dx with COVID this year in July? He states he has tested + since that time?? He denies ANY infectious symptoms over the last few days --> has had good ap petite, no fevers/chills, no URI symptoms, no cough, no myalgia, good energy. His dyspnea was very acute last pm. Some of the dyspnea was associated with tightness but no true pleurisy. Lives with his mother/father neither of whom are sick at this time. CTA chest later returned NEGATIVE for PE. No pneumonia. Small pleural effusions; improved pulmonary edema on the CTA study. Labs noted - mild macrocytic anemia. B12 low-normal --> supplement. Folate level low --> supplement. No TSH since 2020 -- check TSH/FT4 am. Suspect presenting dyspnea was due to volume overload in the setting of his ESRD. Appreciate pulmonary consult. Appreciate nephrology consult. Pt states that his last 2 hospital stays were at [facility] - perhaps his first COVID test was + there?? There are 2 d/c summaries from [facility] - one from September, another from October - NEITHER d/c summary mentions a + COVID test during those 2 stays. Would keep in airborne isolation. Repeat labs am. Guevara Townsend MD
[2022-12-02] MEDS ORDERED: HEPARIN SOD (PORCINE) 1000 UNIT/ML IV ONE (08:08)
[2022-12-02] MEDS ORDERED: SODIUM CHLORIDE 0.9% 1000ML 1,000 ML IV PRN (08:08)
[2022-12-02 08:22] LABS: Hematocrit (blood only) 31.9 % (42.0-52.0); Hemoglobin 10.1 g/dl (14.0-18.0); Mean Corpuscular Hemoglobin 32.4 pg (25.0-34.0); Mean Corpuscular Hgb Conc 31.7 g/dL (32.0-36.0); Mean Corpuscular Volume 102.2 fL (80.0-100.0); Mean Platelet Volume 10.8 fL (9.4-12.4); Platelet Count 169 K/uL (130-400); RDW Coefficient of Variation 14.5 % (11.5-14.5); RDW Standard Deviation 54.5 fL (36.4-46.3); Red Blood Count 3.12 M/uL (4.70-6.10); White Blood Count 8.21 K/ul (4.8-10.8)
[2022-12-02] MEDS ORDERED: ALBUT/IPRATROP 3MG/0.5MG NEB 3 ML VIAL NEB PRN (08:42)
--- NOTE | 2022-12-02 08:42 | Electrocardiogram Report ---
Test Reason : Blood Pressure : / mmHG Vent. Rate : 083 BPM Atrial Rate : 083 BPM P-R Int : 232 ms QRS Dur : 088 ms QT Int : 400 ms P-R-T Axes : 024 -16 095 degrees QTc Int : 470 ms Sinus rhythm with 1st degree A-V block Possible Left atrial enlargement Nonspecific T wave abnormality Abnormal ECG When compared with ECG of 12-SEP-2022 10:00, Nonspecific T wave abnormality now evident in Lateral leads Confirmed by Alex Gracia ([id number]) on 12/02/2022 8:42:28 AM Referred By: REFERRED SELF Confirmed By:Alex Gracia
[2022-12-02 08:43] LABS: BUN Creatinine Ratio 5.7 (10-20); Calcium 8.5 mg/dl (8.6-10.3); Creatinine Clr Calc Pharmacy 17.3 ml/min; Est GFR (African American) 15.2 ml/min; Est GFR (Non-African American) 13.1 ml/min; Potassium 5.5 mmol/L (3.5-5.1)
[2022-12-02] MEDS: HEPARIN SOD (PORCINE) 1000 UNIT/ML IV SCH ×3 (10:06→13:28)
[2022-12-02] MEDS ORDERED: PROMETHAZINE HCL 12.5 MG in SODIUM CHLORIDE 0.9% 50 ML IV PRN (10:55)
--- NOTE | 2022-12-02 11:21 | Dialysis Progress Note ---
Date of Service December 02, 2022 Assessment & Plan (1) ESRD (end stage renal disease): Plan: for extra HD today; tolerated aggressive UF yesterday w/ 3.4 L off defer to primary service but not clear to me that pt currently infectious since we are under 90 day window after + covid test >> recent [facility] covid tests w/ +PCR in September and October provided for review by inf control -next HD for 12/03 d/t volume status; may need daily dialysis for some time thorugh 12/05 or 12/06 -started 1.2 L fluid limit -recommend daily standing weights >> standing wt only Care coordinated w/ Dr Yoder (2) Pleural effusion, bilateral: Plan: evidence of volume overload on imaging; no PE; not a thoracentesis candidate currently; 02 needs improved post HD -trial of daily dialysis Admission and Anticipated Discharge Date Admission Date: December 01, 2022 Subjective N came on today prior to HDand unchanged when seen on HD. pt feels miserable from this standpoint; no abd pain. breathing better. Review of Systems Review of Systems: All systems reviewed & are unremarkable except as noted in Subjective Physical Exam Constitutional: well developed, well nourished, + acute distress (from n), + thin, + frail appearing and cooperative Eyes: EOM intact bilaterally ENMT: Ears: no external ear abnormality Nose: no external nose abnormality Mouth: + dry oral mucous membranes Neck: no nuchal rigidity Respiratory: normal respiratory effort Auscultation: + diminished lung sounds (anterior exam on HD) Cardiovascular: Rate/Rhythm: regular rate and regular rhythm Extremities: + AV fistula; no edema Gastrointestinal (Abdomen): Inspection/Auscultation: normal bowel sounds Percussion/Palpation: abdomen soft; abdomen nontender Musculoskeletal: Extremities: strength 5/5 throughout Skin: no rashes, warm and dry Neurologic: spicer, fluent speech, no tremor Results & Data Vital Signs (Past 12 Hours) Vital Signs Temp Pulse Pulse Pulse Resp BP BP 12/02/22 11:00 74 201/87 H 12/02/22 10:30 73 198/83 H 12/02/22 10:00 74 180/86 H 12/02/22 09:30 72 186/82 H 12/02/22 08:00 12/02/22 09:00 69 199/83 H 12/02/22 08:56 69 201/86 H 12/02/22 08:48 36.5 C 68 12/02/22 07:53 36.4 C L 63 20 201/84 H 12/02/22 07:30 70 18 12/02/22 03:52 36.5 C 64 16 118/63 12/02/22 02:12 61 18 12/01/22 23:42 36.3 C L 67 18 108/56 L Pulse Ox O2 Del Method 12/02/22 11:00 12/02/22 10:30 12/02/22 10:00 12/02/22 09:30 12/02/22 08:00 Room Air 12/02/22 09:00 12/02/22 08:56 12/02/22 08:48 12/02/22 07:53 96 Room Air 12/02/22 07:30 96 Room Air 12/02/22 03:52 92 Room Air 12/02/22 02:12 94 Room Air 12/01/22 23:42 93 Room Air Laboratory Results 12/02/22 07:50 12/02/22 07:50
[2022-12-02] MEDS: INSULIN ASPART PER UNIT CHARGE SC SCH ×4 (12:47→20:28)
[2022-12-02] MEDS: PANTOprazole 40 MG TAB PO SCH ×2 (13:26→17:17)
[2022-12-02] MEDS: ATORVASTATIN 10 MG TAB PO SCH (13:26)
[2022-12-02] MEDS: carvediloL 25 MG TAB PO SCH ×2 (13:26→20:19)
[2022-12-02] MEDS: buPROPion HCl 100 MG TABLET PO SCH (13:26)
[2022-12-02] MEDS: CYANOCOBALAMIN (B-12) 500 MCG TABLET PO SCH (13:26)
[2022-12-02] MEDS: amLODIPine BESYLATE 5 MG TAB PO SCH (13:26)
[2022-12-02] MEDS: SERTRALINE HCL 50 MG TABLET PO SCH (13:27)
[2022-12-02] MEDS: SERTRALINE HCL 100 MG TABLET PO SCH (13:27)
[2022-12-02] MEDS: LOSARTAN POTASSIUM 50 MG TAB PO SCH (13:27)
[2022-12-02] MEDS: hydrALAZINE TAB 50 MG TAB PO SCH ×2 (13:27→20:20)
[2022-12-02] MEDS: FOLIC ACID 1 MG TAB PO SCH (13:27)
[2022-12-02] MEDS: HEPARIN SOD 5,000 UNIT/0.5 ML VIAL SQ SCH ×2 (13:27→20:20)
[2022-12-02] MEDS: LANTUS PER UNIT CHARGE SC SCH (13:27)
[2022-12-02] MEDS: PROCHLORPERAZINE 5 MG in SYRINGE 4 ML IV PRN ×2 (14:08→20:19)
--- NOTE | 2022-12-02 14:15 | Hospitalist Progress Note ---
Date of Service December 02, 2022 Assessment & Plan (1) Pleural effusion, bilateral: Plan: Patient presents to the hospital with complaints of SOB Has had loculated effusion in the past s/p pleuryx Chest X ray and CT chest show evidence of bilateral pleural effusion, thought to be from fluid overload Pulm on consult, recommend HD for fluid management (2) ESRD (end stage renal disease): Plan: Will undergo several back to back sessions of HD according to nephrology (3) 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, with long-term current use of insulin: Plan: Ramsey glucose under good control On Glargine 17 units in the morning and also sliding scale continue to montor glucose (4) COVID-19: Plan: Tested positive here and also in an outside facility three times in the past few months No sign of COVID infection or PNA Will discontinue isolation Plan continue hospitalization, will need several sessions of HD Admission and Anticipated Discharge Date Admission Date: December 01, 2022 Subjective Patient seen and examined, undergoing HD, says SOB is improved Review of Systems Review of Systems: All systems reviewed are negative, apart from the ones contained in the history. Physical Exam Physical Exam: The patient is awake, alert and oriented 3, well developed and well nourished, normocephalic and atraumatic, lying in bed and in no acute distress. HEENT--PERRL, EOMI, mucous membranes and oropharynx mildly dry Neck--supple. No JVD. No bruits. Thyroid normal, trachea midline, no a denopathy. Heart--normal S1 and S2. No murmurs, rubs or gallops. Lungs--Reduced air entry on auscutation Abdomen--normal bowel sounds and soft. Mild epigastric and left sided abdominal pain Extremities--no cyanosis or clubbing. No edema. Dermatologic--normal skin turgor, normal color, no abnormal lymph nodes, no rash. Neurologic--cranial nerves II through XII grossly intact. Rheumatologic--normal range of motion. Psychiatric--normal affect. Results & Data Results & Data Vital Signs (Past 12 Hours) Vital Signs Temp Pulse Pulse Pulse Resp BP BP 12/02/22 13:00 97.7 F 75 206/87 H 12/02/22 12:30 75 218/85 H 12/02/22 12:00 74 208/83 H 12/02/22 11:30 73 203/87 H 12/02/22 11:00 74 201/87 H 12/02/22 10:30 73 198/83 H 12/02/22 10:00 74 180/86 H 12/02/22 09:30 72 186/82 H 12/02/22 08:00 12/02/22 09:00 69 199/83 H 12/02/22 08:56 69 201/86 H 12/02/22 08:48 97.7 F 68 12/02/22 07:53 97.5 F L 63 20 201/84 H 12/02/22 07:30 70 18 12/02/22 03:52 97.7 F 64 16 118/63 12/02/22 02:12 61 18 Pulse Ox O2 Del Method 12/02/22 13:00 12/02/22 12:30 12/02/22 12:00 12/02/22 11:30 12/02/22 11:00 12/02/22 10:30 12/02/22 10:00 12/02/22 09:30 12/02/22 08:00 Room Air 12/02/22 09:00 12/02/22 08:56 12/02/22 08:48 12/02/22 07:53 96 Room Air 12/02/22 07:30 96 Room Air 12/02/22 03:52 92 Room Air 12/02/22 02:12 94 Room Air PG Care Time/CCT Total # of Minutes Spent Total Time Spent with Patient: Total time spent is greater than 50% in coordination of care (as documented) at patient's floor/unit and/or counseling patient: Coding Level of Care Code 28624 SUB INP/OBS CARE 2/35MIN Diagnoses Pleural effusion, bilateral J90 ESRD (end stage renal disease) N18.6 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
[2022-12-02] MEDS: MIRTAZAPINE TAB 15 MG TAB PO SCH (20:19)
[2022-12-03] MEDS ORDERED: HEPARIN SOD (PORCINE) 1000 UNIT/ML IV ONE (07:53)
[2022-12-03] MEDS ORDERED: SODIUM CHLORIDE 0.9% 1000ML 1,000 ML IV PRN (07:53)
[2022-12-03] MEDS: HEPARIN SOD 5,000 UNIT/0.5 ML VIAL SQ SCH ×2 (08:09→20:56)
[2022-12-03] MEDS: PANTOprazole 40 MG TAB PO SCH ×2 (08:10→16:41)
[2022-12-03] MEDS: ATORVASTATIN 10 MG TAB PO SCH (08:10)
[2022-12-03] MEDS: SERTRALINE HCL 50 MG TABLET PO SCH (08:10)
[2022-12-03] MEDS: hydrALAZINE TAB 50 MG TAB PO SCH ×2 (08:10→20:56)
[2022-12-03] MEDS: FOLIC ACID 1 MG TAB PO SCH (08:10)
[2022-12-03] MEDS: carvediloL 25 MG TAB PO SCH ×2 (08:10→20:56)
[2022-12-03] MEDS: buPROPion HCl 100 MG TABLET PO SCH (08:11)
[2022-12-03] MEDS: amLODIPine BESYLATE 5 MG TAB PO SCH (08:12)
[2022-12-03] MEDS: CYANOCOBALAMIN (B-12) 500 MCG TABLET PO SCH (08:12)
[2022-12-03] MEDS: LOSARTAN POTASSIUM 50 MG TAB PO SCH (08:12)
[2022-12-03] MEDS: SERTRALINE HCL 100 MG TABLET PO SCH (08:12)
[2022-12-03] MEDS: INSULIN ASPART PER UNIT CHARGE SC SCH ×4 (08:18→21:05)
[2022-12-03] MEDS: LANTUS PER UNIT CHARGE SC SCH (08:18)
[2022-12-03 09:20] LABS: BUN Creatinine Ratio 5.5 (10-20); Calcium 8.6 mg/dl (8.6-10.3); Creatinine Clr Calc Pharmacy 20.3 ml/min; Est GFR (African American) 18.5 ml/min
[2022-12-03 09:57] LABS: Hemoglobin 10.3 g/dl (14.0-18.0); Mean Corpuscular Hemoglobin 32.6 pg (25.0-34.0); Mean Corpuscular Hgb Conc 32.2 g/dL (32.0-36.0); Mean Corpuscular Volume 101.3 fL (80.0-100.0); Mean Platelet Volume 9.7 fL (9.4-12.4); Platelet Count 244 K/uL (130-400); RDW Coefficient of Variation 14.4 % (11.5-14.5); RDW Standard Deviation 53.4 fL (36.4-46.3); Red Blood Count 3.16 M/uL (4.70-6.10); White Blood Count 6.96 K/ul (4.8-10.8)
[2022-12-03] MEDS: HEPARIN SOD (PORCINE) 1000 UNIT/ML IV SCH ×2 (12:49→14:07)
--- NOTE | 2022-12-03 14:08 | Hospitalist Progress Note ---
Date of Service December 03, 2022 Assessment & Plan (1) Pleural effusion, bilateral: Plan: Patient presented to the hospital with complaints of SOB Has had loculated effusion in the past s/p pleuryx Chest X ray and CT chest show evidence of bilateral pleural effusion, thought to be from fluid overload Pulm on consult, recommend HD for fluid management Will get a repeat chest x ray for follow up (2) ESRD (end stage renal disease): Plan: Will undergo several back to back sessions of HD according to nephrology (3) 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, with long-term current use of insulin: Plan: Ramsey glucose under good control On Glargine 17 units in the morning and also sliding scale continue to montor glucose (4) COVID-19: Plan: Tested positive here and also in an outside facility three times in the past few months No sign of COVID infection or PNA Will discontinue isolation Plan continue hospitalization, will need several sessions of HD Admission and Anticipated Discharge Date Admission Date: December 01, 2022 Subjective Patient seen and examined, undergoing HD, says SOB is improved, but does not have much appetite Review of Systems Review of Systems: All systems reviewed are negative, apart from the ones contained in the history. Physical Exam Physical Exam: The patient is awake, alert and oriented 3, well developed and well nourished, normocephalic and atraumatic, lying in bed and in no acute distress. HEENT--PERRL, EOMI, mucous membranes and oropharynx mildly dry Neck--supple. No JVD. No bruits. Thyroid normal, trachea midline, no adenopathy. Heart--normal S1 and S2. No murmurs, rubs or gallops. Lungs--Reduced air entry on auscutation Abdomen--normal bowel sounds and soft. Mild epigastric and left sided abdominal pain Extremities--no cyanosis or clubbing. No edema. Dermatologic--normal skin turgor, normal color, no abnormal lymph nodes, no rash. Neurologic--cranial nerves II through XII grossly intact. Rheumatologic--normal range of motion. Psychiatric--normal affect. Results & Data Results & Data Vital Signs (Past 12 Hours) Vital Signs Temp Pulse Pulse Pulse Resp BP BP 12/03/22 12:30 62 106/46 L 12/03/22 12:00 63 95/48 L 12/03/22 11:30 63 123/50 L 12/03/22 11:00 65 150/61 H 12/03/22 10:30 65 160/70 H 12/03/22 10:25 97.9 F 77 12/03/22 07:52 97.9 F 64 17 153/64 H 12/03/22 05:29 69 12/03/22 02:59 98.1 F 66 16 124/69 Pulse Ox O2 Del Method 12/03/22 12:30 12/03/22 12:00 12/03/22 11:30 12/03/22 11:00 12/03/22 10:30 12/03/22 10:25 12/03/22 07:52 95 Room Air 12/03/22 05:29 12/03/22 02:59 94 Room Air PG Care Time/CCT Total # of Minutes Spent Total Time Spent with Patient: Total time spent is greater than 50% in coordination of care (as documented) at patient's floor/unit and/or counseling patient: Coding Level of Care Code 92414 SUB INP/OBS CARE 2/35MIN Diagnoses Pleural effusion, bilateral J90 ESRD (end stage renal disease) N18.6 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
--- NOTE | 2022-12-03 15:03 | XRay Report ---
XR chest 1V portable CLINICAL HISTORY: follow up COMPARISON STUDY: Chest radiograph and chest CT December 01, 2022. FINDINGS: There is no pneumothorax. A small left pleural effusion has decreased in size since chest r adiograph December 01, 2022. Hazy left midlung opacity likely reflects residual pleural fluid. Pulmonary edema has markedly improved. There may be mild residual interstitial thickening. IMPRESSION: 1. Near complete resolution of pulmonary edema. 2. Decrease in size of a small left pleural effusion. Hazy left midlung opacity likely reflects fissu ral fluid. ACT 112: Negative or not required by law. Electronically signed by: Gabino Cool M.D. 12/03/2022 3:01 PM
--- NOTE | 2022-12-03 16:12 | Dialysis Progress Note ---
Date of Service December 03, 2022 Assessment & Plan (1) ESRD (end stage renal disease): Plan: for routine HD today and stopped early d/t hypotension; has tolerated aggressive UF past 2 days -reassess for HD in AM; d/t volume status may need daily dialysis for some time thorugh 12/05 or 12/06 but also not toelrating today -started 1.2 L fluid limit -recommend daily standing weights >> standing wt only Care coordinated w/ Dr Yoder (2) Pleural effusion, bilateral: Plan: evidence of volume overload on imaging; no PE; not a thoracentesis candidate currently; 02 needs improved post HD -trial of daily dialysis Admission and Anticipated Discharge Date Admission Date: December 01, 2022 Subjective seen on dialysis midday. later had to come off early d/t symptomatic hypotension Review of Systems Review of Systems: All systems reviewed & are unremarkable except as noted in Subjective Physical Exam Constitutional: well developed, well nourished, + thin, + frail appearing and cooperative; no acute distress Eyes: EOM intact bilaterally ENMT: Ears: no external ear abnormality Nose: no external nose abnormality Mouth: + dry oral mucous membranes Neck: no nuchal rigidity Respiratory: normal respiratory effort Auscultation: + diminished lung sounds (anterior exam on HD) and + crackles (R posterior garcia adn diminished small R base) Cardiovascular: Rate/Rhythm: regular rate and regular rhythm Extremities: + AV fistula; no edema Gastrointestinal (Abdomen): Inspection/Auscultation: normal bowel sounds Percussion/Palpation: abdomen soft; abdomen nontender Musculoskeletal: Extremities: strength 5/5 throughout Skin: no rashes, warm and dry Results & Data Vital Signs (Past 12 Hours) Vital Signs Temp Pulse Pulse Pulse Resp BP BP 12/03/22 16:02 36.8 C 66 19 120/56 L 12/03/22 14:20 36.6 C 69 110/51 L 12/03/22 14:00 65 88/39 L 12/03/22 13:30 69 95/41 L 12/03/22 13:00 64 73/37 L 12/03/22 12:30 62 106/46 L 12/03/22 12:00 63 95/48 L 12/03/22 11:30 63 123/50 L 12/03/22 11:00 65 150/61 H 12/03/22 10:30 65 160/70 H 12/03/22 10:25 36.6 C 77 12/03/22 07:52 36.6 C 64 17 153/64 H 12/03/22 05:29 69 Pulse Ox O2 Del Method 12/03/22 16:02 96 Room Air 12/03/22 14:20 12/03/22 14:00 12/03/22 13:30 12/03/22 13:00 12/03/22 12:30 12/03/22 12:00 12/03/22 11:30 12/03/22 11:00 12/03/22 10:30 12/03/22 10:25 12/03/22 07:52 95 Room Air 12/03/22 05:29 Laboratory Results 12/03/22 09:41 12/03/22 08:33
[2022-12-03] MEDS: MIRTAZAPINE TAB 15 MG TAB PO SCH (21:04)
[2022-12-04] MEDS: INSULIN ASPART PER UNIT CHARGE SC SCH ×2 (07:58→11:59)
[2022-12-04] MEDS: SERTRALINE HCL 100 MG TABLET PO SCH (07:59)
[2022-12-04] MEDS: LOSARTAN POTASSIUM 50 MG TAB PO SCH (07:59)
[2022-12-04] MEDS: SERTRALINE HCL 50 MG TABLET PO SCH (07:59)
[2022-12-04] MEDS: hydrALAZINE TAB 50 MG TAB PO SCH (07:59)
[2022-12-04] MEDS: amLODIPine BESYLATE 5 MG TAB PO SCH (07:59)
[2022-12-04] MEDS: PANTOprazole 40 MG TAB PO SCH (07:59)
[2022-12-04] MEDS: ATORVASTATIN 10 MG TAB PO SCH (07:59)
[2022-12-04] MEDS: buPROPion HCl 100 MG TABLET PO SCH (08:00)
[2022-12-04] MEDS: FOLIC ACID 1 MG TAB PO SCH (08:05)
[2022-12-04] MEDS: CYANOCOBALAMIN (B-12) 500 MCG TABLET PO SCH (08:06)
[2022-12-04] MEDS: carvediloL 25 MG TAB PO SCH (08:06)
[2022-12-04] MEDS: LANTUS PER UNIT CHARGE SC SCH (08:07)
[2022-12-04] MEDS: HEPARIN SOD 5,000 UNIT/0.5 ML VIAL SQ SCH (08:07)
--- NOTE | 2022-12-04 08:07 | Nephrology Progress Note ---
Date of Service December 04, 2022 Assessment & Plan (1) ESRD (end stage renal disease): Plan: for 2 hr HD today; yesterday stopped 1 hr early d/t hypotension; we have removed 9.4 L fluid this week -reassess for HD in AM; d/t volume status may need daily dialysis for some time thorugh 12/05 or 12/06 but also not toelrating today -continue 1.2 L fluid limit -recommend daily standing weights >> standing wt only >> 58.6 kg today from a neph standpoint he could be d/c home after tx today to resume OP treatment tomorrow Care coordinated w/ Dr Yoder (2) Pleural effusion, bilateral: Plan: evidence of volume overload on imaging; no PE; not a thoracentesis candidate currently; 02 needs improved post HD -trial of daily dialysis -CXR today Admission and Anticipated Discharge Date Admission Date: December 01, 2022 Subjective breathing is better, N controlled. Review of Systems Review of Systems: All systems reviewed & are unremarkable except as noted in Subjective Physical Exam Constitutional: well developed, well nourished, + thin, + frail appearing and cooperative; no acute distress Eyes: EOM intact bilaterally ENMT: Ears: no external ear abnormality Nose: no external nose abnormality Mouth: + dry oral mucous membranes Neck: no nuchal rigidity Respiratory: normal respiratory effort Auscultation: + diminished lung sounds (L base) and + crackles (L base fine) Cardiovascular: Rate/Rhythm: regular rate and regular rhythm Extremities: + AV fistula; no edema Gastrointestinal (Abdomen): Inspection/Auscultation: normal bowel sounds Percussion/Palpation: abdomen soft; abdomen nontender Musculoskeletal: Extremities: strength 5/5 throughout Skin: no rashes, warm and dry Psychiatric: Orientation: alert and oriented x 3 Results & Data Vital Signs (Past 12 Hours) Vital Signs Temp Pulse Pulse Resp BP Pulse Ox O2 Del Method 12/03/22 23:45 73 12/04/22 03:34 37.0 C 67 16 151/65 H 95 Room Air 12/03/22 23:18 36.8 C 72 18 126/54 L 96 Room Air Laboratory Results 12/03/22 09:41 12/03/22 08:33
[2022-12-04] MEDS ORDERED: HEPARIN SOD (PORCINE) 1000 UNIT/ML IV ONE (08:16)
[2022-12-04] MEDS ORDERED: SODIUM CHLORIDE 0.9% 1000ML 1,000 ML IV PRN (08:16)
--- NOTE | 2022-12-04 08:22 | XRay Report ---
XR chest 1V portable CLINICAL HISTORY: f/u pleural effusions TECHNIQUE: Single frontal radiograph of the chest was obtained. Comparison: Comparison is made to chest radiograph 12/03/2022 FINDINGS: No lines and tubes are seen. Cardiomegaly is noted. Previously noted left midlung airspace opacity wilkerson s decreased in conspicuity. Trace left pleural effusion is seen. IMPRESSION: Trace left pleural effusion with improved airspace opacity in the left midlung likely representing de creased loculated effusion. ACT 112: Negative or not required by law. Electronically signed by: Maninder Cohen M.D. 12/04/2022 8:20 AM
[2022-12-04] MEDS: HEPARIN SOD (PORCINE) 1000 UNIT/ML IV SCH ×2 (09:12→11:59)
--- NOTE | 2022-12-04 13:07 | Discharge Summary ---
Date of Service December 04, 2022 Admission HPI Per Admitting Provider 52 yo male with PMHx of pleural effusion, pulmonary embolism, ESRD on dialysis, DM1, diabetic gastroparesis, diabetic retinopathy, HTN, HLD, CAD, GERD, anxiety, depression, and anemia of chronic disease presents with shortness of breath. Around midnight patient was lying on his stomach and suddenly became short of breath. He does endorse some left lower extremity cramping at the time. Also with associated dry cough and fatigue. Denies fever, congestion, chest pain, abdominal pain, dysuria, constipation, diarrhea, nausea, vomiting. Denies any recent travel but cannot sit for up to 4 hours during dialysis treatments. He does have a history of pulmonary embolism back in 2020 with coinciding pleural effusion which required pleurx catheter at the time. Principal Diagnosis fluid overload Discharge Exam The patient is awake, alert and oriented 3, well developed and well nourished, normocephalic and atraumatic, lying in bed and in no acute distress. HEENT--PERRL, EOMI, mucous membranes and oropharynx mildly dry Neck--supple. No JVD. No bruits. Thyroid normal, trachea midline, no adenopathy. Heart--normal S1 and S2. No murmurs, rubs or gallops. Lungs--Reduced air entry on auscutation Abdomen--normal bowel sounds and soft. Mild epigastric and left sided abdominal pain Extremities--no cyanosis or clubbing. No edema. Dermatologic--normal skin turgor, normal color, no abnormal lymph nodes, no rash. Neurologic--cranial nerves II through XII grossly intact. Rheumatologic--normal range of motion. Psychiatric--normal affect. Discharge Data Allergies Allergy/AdvReac Type Severity Reaction Status Date / Time shellfish derived Allergy Severe anaphylaxis Verified 11/18/22 08:39 codeine Allergy Intermediate Hives Verified 11/18/22 08:39 promethazine Allergy Intermediate itchy/hives Verified 11/18/22 08:39 Consultations 12/01/22 03:47 ED Decision to Admit Stat 12/01/22 05:40 Consult Pulmonology Routine 12/01/22 05:47 Consult Nephrology Routine Ordered Studies 12/01/22 02:19 CT chest diagnostic wo con Stat 12/01/22 05:40 US venous doppler LE BI Stat 12/01/22 11:38 CT angio chest PE protocol Urgent Hospital Course (1) Pleural effusion, bilateral: Patient presented to the hospital with complaints of SOB Has had loculated effusion in the past s/p pleuryx Chest X ray and CT chest show evidence of bilateral pleural effusion, thought to be from fluid overload Pulm on consult, recommend HD for fluid management Repeat x ray shows improvement in pulm edema and effusion (2) ESRD (end stage renal disease): Will undergo several back to back sessions of HD according to nephrology (3) 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, with long-term current use of insulin: Ramsey glucose under good control On Glargine 17 units in the morning and also sliding scale continue to montor glucose (4) COVID-19: Tested positive here and also in an outside facility three times in the past few months No sign of COVID infection or PNA Will discontinue isolation Plan d/c home Total Time Total Time Spent Total Time Spent (In Minutes): 35 Discharge Plan Discharge Items Patient Disposition: Home - Self-Care Reason For Visit: SOB Discharge Diagnosis: fluid overload Condition on Discharge: Fair Activity: Resume your previous activity Non-emergency contact: 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 Call non-emergency contact if: you have any medication questions Follow-up/Referrals: Genet Cool MD [Primary Care Provider] - 12/08/22 3:00 pm (Follow up scheduled on 12/08/22 @ 3 pm with Marline Gillespie) Diet: Dialysis Renal Fluids: 1200ml (5 cups) Addtl Attending Provider Instructions: Please restrict your fluid intake to not more than 1.2L a day Pending Studies at Discharge: No Stand-Alone Forms: My [email or web address], Smoking Cessation Medications and DC Order Prescriptions: Continued acetaminophen 325 mg capsule 650 mg PO Q4H PRN (Reason: Pain (Scale Score 1-3)) lorazepam 0.5 mg tablet 0.5 mg PO Q6H PRN (Reason: Anxiety) Qty: 60 0RF (DME) pen needle, diabetic [BD Ultra-Fine Annalise Pen Needle] 32 gauge x 5/32" needle See Rx Instructions .Route Qty: 500 3RF Rx Instructions: Use 5 per day with insulin injections losartan 100 mg tablet 100 mg PO QAM Qty: 90 3RF atorvastatin 10 mg tablet 10 mg PO QAM Qty: 90 1RF trimethobenzamide 300 mg capsule 300 mg PO TID PRN (Reason: nausea and vomiting) carvedilol 25 mg tablet 50 mg PO BID Rx Instructions: TAKE THIS MEDICATION WITH FOOD hydralazine 50 mg tablet 50 mg PO BID mirtazapine 7.5 mg tablet 15 mg PO HS Qty: 60 0RF insulin aspart U-100 [Novolog FlexPen U-100 Insulin] 100 unit/mL (3 mL) insulin pen 5 unit SUBCUT TIDM PRN (Reason: sliding scale) Qty: 15 5RF Rx Instructions: Use per sliding scale. 1 unit for every 8 grams of carb. Correction Factor 1 unit per 40mg/dL above goal range. MDD 40 units daily. ondansetron HCl 4 mg tablet 8 mg PO Q4 PRN (Reason: nausea or vomiting) Qty: 60 2RF melatonin 1 mg tablet 4 mg PO HS PRN sertraline 100 mg tablet 100 mg PO QAM Rx Instructions: TOTAL DOSE 125 MG--TAKES WITH 25 MG TAB. sertraline 25 mg tablet 25 mg PO QAM Rx Instructions: TOTAL DOSE 125 MG--TAKES WITH 100 MG TAB. Velphoro 500 mg tablet,chewable 1,000 mg PO TIDM amlodipine 10 mg tablet 10 mg PO QAM cholecalciferol (vitamin D3) [Vitamin D3] 50 mcg (2,000 unit) capsule 50 mcg PO QAM pantoprazole 40 mg tablet,delayed release (DR/EC) 40 mg PO BIDM insulin glargine [Basaglar KwikPen U-100 Insulin] 100 unit/mL (3 mL) insulin pen 17 unit SUBCUT QAM bupropion HCl 100 mg tablet 125 mg PO QAM Rx Instructions: Per patient he is taking 125 mg (09/18/2022) Discharge Orders: Discharge Order (Routine); Ordered 12/04/22 Ordered By: Caprice Yoder Admission Data Admit Date/Time: 12/01/22 05:40 Attending Provider: Caprice Yoder Admit Provider: Francisco Walker Primary Care Provider: Genet Cool Other Providers: Johnson Lazo ; Lor Guadalupe ; Colton Guajardo Other Interventions: Discharge Summary Assessment (RN) Last Done: 12/04/22 12:04 Coding Level of Care Code 91684 INP/OBS DISCH >30 MIN Diagnoses Pleural effusion, bilateral J90 ESRD (end stage renal disease) N18.6 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
--- NOTE | 2022-12-06 16:31 | Coding Query ---
CODING QUERY To promote full compliance with coding requirements relating to patient care, provider participation is requested in all cases of fishing worker uncertainty. Please assist us with the question(s) below: Coding Question(s): Patient with ESRD admitted with pleural effusions bilateral. Documentation states pleural effusions d/t fluid overload. Please document below, if known or suspected, the etiology of the Fluid Overload. Thanks for your help! Michael Dawson [facility] Physician's Response(s): unknown etiology Principal Diagnosis: "that condition established after study, to be chiefly responsible for occasioning the admission of the patient to the hospital for care." Co-Existing Principal Diagnosis: "when two or more diagnoses equally meet the criteria for principal diagnosis as determined by the circumstances of admission, diagnostic work up, and/or therapy provided, and the Alphabetic Index, Tabular List, or another coding guideline does not provide sequencing direction, any one of the diagnoses may be sequenced first." "When the physician has documented what appears to be a current diagnosis in the body of the record, but has not included the diagnosis in the final diagnostic statement, the physician should be asked whether the diagnosis should be added." (Source Coding [facility] 2 QTR90. p3-4) N[place]OL[place]S
--- NOTE | 2022-12-09 02:08 | Billing Data ---
Date of Service December 09, 2022 Coding Level of Care Code 14978 INT INP/OBS CARE
== END 2022-12-04 14:14 | disposition home or self-care (01) | DRG 640 ==
LOC: ED 01:21 → 2S 05:40 → SUATTDRO 05:40 → 2S 06:49

== ENCOUNTER 2023-03-14 13:09 | Inpatient (IN) ==
[2023-03-14] MEDS ORDERED: SODIUM CHLORIDE 0.9% 500 ML IV STA (13:16)
[2023-03-14] MEDS ORDERED: ONDANSETRON INJ 2 MG/ML 2 ML VIAL IV STA (13:16)
--- NOTE | 2023-03-14 13:19 | Emergency Department Note ---
Impression & Plan Acute hyperglycemia ADMIT ED Provider Note HPI: History obtained from patient. The patient is a 52-year-old gentleman with history of type 1 diabetes, coronary artery disease, end-stage renal disease on dialysis, who presents emergency department chief complaint of nausea and vomiting. Patient states that his symptoms began at around 5 in the morning. Patient states he did take his Lantus at 9 AM. Patient states he is continued to have intractable nausea and v omiting since 5 AM and therefore contacted EMS for transport to the ED. On arrival here to the ED the patient is in moderate distress secondary to vomiting, he is otherwise hemodynamically stable, he is alert on arrival. Per EMS report patient's blood glucose was read as "high". ROS: - Per HPI Differential Diagnosis: Diabetic ketoacidosis, small bowel obstruction, acute cholecystitis, acute appendicitis, sepsis, pneumonia, pulmonary edema, amongst other potential pathologies. *Outpatient medications and allergy history reviewed. 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 Lab work shows no leukocytosis, hemoglobin is near baseline at 10.1, platelet count is normal, venous blood gas shows alkalosis with a pH of 7.54, PCO2 of 31, CMP shows pseudohyponatremia 123, potassium slightly low at 3.4, anion gap is elevated at 17, BUN of 52, creatinine 5.37 (baseline), glucose level is 772, lactic acid is elevated at 3.4. Patient was given a 500 cc bolus of normal saline and not further secondary to ESRD history. He does not make any urine. Bilirubin is mildly elevated at 1.1, AST of 43, ALT of 55, initial troponin is 20.7. Patient denies any chest pain, low suspicion for ACS. Chest x-ray shows no acute disease. CT imaging of the abdomen pelvis is limited secondary to lack of any contrast however does not show any evidence of any acute surgical abnormalities. Patient was ordered IV repletion of potassium, IV fluids, IV Zofran, initiated on insulin drip. Patient was also given IV labetalol in addition to IV hydralazine for hypertension here in the ED with moderate improvement. On my reassessment the patient appears improved from previous, he will be admitted to the hospitalist service for further management of hyperglycemia and intractable nausea and vomiting. Case was discussed with the on-call hospitalist, Dr. Loomis, and the patient was placed for admission in improved condition. Consultants/Discussions held with other healthcare providers: -Dr. Loomis, hospitalist Disposition discussion held by myself with: -Patient * CRITICAL CARE TIME: (55) minutes -Management of hyperglycemia with anion gap elevation requiring initiation of insulin drip for correction, time spent at the bedside, administration of IV antihypertensives for hypertensive emergency in the setting of end-stage renal disease on dialysis, discussion with other physicians and arrangement of admission Diagnosis: 1. Hyperglycemia, acute 2. Hypertensive emergency, acute 3. Hypokalemia, acute 4. Lactic acidosis, acute 5. Intractable nausea and vomiting, acute 6. Elevated high-sensitivity troponin Disposition: Admission Rick Villatoro DO Emergency Medicine Past Med/Surg History Medical History (Updated 03/12/23 @ 15:31 by Johnson Lazo MD) Anemia of chronic disease Anxiety AV fistula left upper arm CAD (coronary artery disease) mild, non-obstructive CAD per 10/2018 cardiac cath> [facility] Chronic pleural effusion PleurX catheter placed 01/24/21--removed 07/2021 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 Lor Guadalupe; [facility]) GERD (gastroesophageal reflux disease) History of nephrolithiasis History of pulmonary embolism 11/2020; unk etiology; was on warfarin (taken off 05/2021) Hypertension Hypertensive emergency Hypertensive urgency Junctional rhythm Kidney stone on right side Lumbar radiculopathy Musculoskeletal chest pain Nausea & vomiting Palliative care encounter Personal history of diabetic foot ulcer Urolithiasis Surgical History H/O shoulder surgery RIGHT History of appendectomy History of cardiac cath 10/2018= no stents, no obstructive disease (at [facility]) History of cataract surgery History of esophagogastroduodenoscopy (EGD) (~03/08/20) History of hip surgery left HIP ARTHROSCOPY History of lithotripsy History of open reduction and internal fixation (ORIF) procedure right hip Nausea and vomiting after administration of anesthetic agent S/P arteriovenous (AV) fistula creation Family History Grandfather Myocardial infarction Grandfather (Maternal) Family history of diabetes mellitus Uncle Myocardial infarction Father Hypertension Mother Kidney stone Other No family history of adverse response to anesthesia Denies family history of Colon cancer Ovarian cancer Prostate cancer Breast cancer Social History (Updated 01/29/23 @ 10:37 by Rolanda Gould LPN) Smoking Status: Never smoker Tobacco Type: Smokeless Tobacco (Dip or Chew) Second Hand Exposure: No; Do You Dip or Chew Tobacco: No (quit 2018); Hx Alcohol Use: No Hx Substance Use: No Preferred Language: Guatemalan Communication Ability: Effective Visual Impairment: No Limitations Hearing Ability: Normal Electronic Console Display Operator Required: No Beliefs That Will Affect Care: None marital status: Current Living Situation: Family Current Living Situation Comment: single story home with parents current occupational status: disabled How many Children do You have: 2 Feels Safe at Home: Yes Childhood Exposure to Second-Hand Smoke: Yes Dental Care, Regularly: No Physical Activity Frequency: 1-2 Times per Week Seatbelt Use: always Sunscreen Use: No Assistive Devices: None Allergies Allergies Allergy/AdvReac Type Severity Reaction Status Date / Time shellfish derived Allergy Severe anaphylaxis Verified 03/11/23 15:58 codeine Allergy Intermediate Hives Verified 03/11/23 15:58 promethazine Allergy Intermediate itchy/hives Verified 03/11/23 15:58 Home Meds Home Medications Medication Instructions Recorded Confirmed acetaminophen 325 mg capsule 650 mg PO Q4H PRN Pain (Scale 09/28/20 03/14/23 Score 1-3) cholecalciferol (vitamin D3) 50 50 mcg PO QAM 10/25/21 03/14/23 mcg (2,000 unit) capsule (Vitamin D3) sertraline 100 mg tablet 100 mg PO QAM 12/29/21 03/14/23 sertraline 25 mg tablet 25 mg PO QAM 12/29/21 03/14/23 sucroferric oxyhydroxide 500 mg 1,000 mg PO TIDM 12/29/21 03/14/23 chewable tablet (Velphoro) amlodipine 10 mg tablet 10 mg PO QAM 03/01/22 03/14/23 pantoprazole 40 mg tablet,delayed 40 mg PO BIDM 07/20/22 03/14/23 release melatonin 1 mg tablet 4 mg PO HS PRN Sleep 09/18/22 03/14/23 carvedilol 25 mg tablet 25 mg PO BID 02/19/23 03/14/23 hydralazine 50 mg tablet 50 mg PO TID 02/19/23 03/14/23 midodrine 5 mg tablet 5 mg PO .COMPLEX 02/19/23 03/14/23 mirtazapine 7.5 mg tablet 7.5 mg PO HS 02/19/23 03/14/23 minoxidil 2.5 mg tablet 5 mg PO DAILY 03/14/23 03/14/23 Previous Rx's Medication Instructions Recorded lorazepam 0.5 mg tablet 0.5 mg PO Q6H PRN Anxiety #60 tabs 03/27/21 insulin aspart U-100 100 unit/mL 5 unit (0.05 mL) subcut TIDM PRN 10/24/21 (3 mL) subcutaneous pen (Novolog sliding scale #15 mL FlexPen U-100 Insulin aspart) losartan 100 mg tablet 100 mg PO QAM #90 tabs 06/05/22 atorvastatin 10 mg tablet 10 mg PO QAM #90 tabs 08/11/22 ondansetron HCl 4 mg tablet 8 mg PO Q4 PRN nausea or vomiting 08/14/22 #60 tabs pen needle, diabetic 31 gauge x #500 ea 12/08/22 5/16" (Comfort EZ Pen [place]) insulin glargine 100 unit/mL (3 17 unit (0.17 mL) subcut QAM #15 mL 12/16/22 mL) subcutaneous pen (Basaglar KwikPen U-100 Insulin) insulin regular human 100 unit/mL 30 unit (0.3 mL) subcut DAILY #15 02/20/23 (3 mL) subcutaneous pen (Novolin R mL FlexPen) Results & Data (ED) Vital Signs Vital Signs - 24 hr 03/14/23 13:10 03/14/23 13:34 03/14/23 13:40 Pulse Rate 86 81 Pulse Rate from SpO2 Sensor Pulse Rhythm Regular Pulse Strength Normal Respiratory Rate 22 Respiratory Effort / Characteristics Non-Labored Spontaneous Respiratory Depth Normal Respiratory Pattern Regular Blood Pressure 226/97 H Blood Pressure Mean 140 Blood Pressure Position Lying Pulse Oximetry 98 65 L Oxygen Delivery Method Room Air Room Air Oxygen Flow Rate 0 Sepsis Recent Fever Within 48 Hours No Sepsis New/Unexplained Change in Mental Status N/A Sepsis Action Taken by Nursing No Action Required Oxygen Flow Rate - Titration 2 Pulse Oximetry Post Tiitration 98 03/14/23 13:16 03/14/23 13:27 03/14/23 13:30 Pulse Rate 86 83 80 Pulse Rate from SpO2 Sensor 83 80 Pulse Rhythm Regular Pulse Strength Respiratory Rate 22 19 7 L Respiratory Effort / Characteristics Respiratory Depth Respiratory Pattern Blood Pressure Blood Pressure Mean Blood Pressure Position Pulse Oximetry 94 99 98 Oxygen Delivery Method Room Air Oxygen Flow Rate Sepsis Recent Fever Within 48 Hours Sepsis New/Unexplained Change in Mental Status Sepsis Action Taken by Nursing Oxygen Flow Rate - Titration Pulse Oximetry Post Tiitration 03/14/23 13:40 03/14/23 13:50 03/14/23 14:13 Pulse Rate 84 83 82 Pulse Rate from SpO2 Sensor 85 83 Pulse Rhythm Pulse Strength Respiratory Rate 6 L 8 L Respiratory Effort / Characteristics Respiratory Depth Respiratory Pattern Blood Pressure 231/102 H Blood Pressure Mean Blood Pressure Position Pulse Oximetry 65 L 100 Oxygen Delivery Method Nasal Cannula Oxygen Flow Rate 2 Sepsis Recent Fever Within 48 Hours Sepsis New/Unexplained Change in Mental Status Sepsis Action Taken by Nursing Oxygen Flow Rate - Titration Pulse Oximetry Post Tiitration 03/14/23 14:39 03/14/23 14:00 03/14/23 14:10 Pulse Rate 71 83 80 Pulse Rate from SpO2 Sensor 82 80 Pulse Rhythm Pulse Strength Respiratory Rate 15 6 L Respiratory Effort / Characteristics Respiratory Depth Respiratory Pattern Blood Pressure 198/86 H Blood Pressure Mean Blood Pressure Position Pulse Oximetry 100 99 Oxygen Delivery Method Oxygen Flow Rate Sepsis Recent Fever Within 48 Hours Sepsis New/Unexplained Change in Mental Status Sepsis Action Taken by Nursing Oxygen Flow Rate - Titration Pulse Oximetry Post Tiitration 03/14/23 14:13 03/14/23 14:20 03/14/23 14:30 Pulse Rate 82 76 74 Pulse Rate from SpO2 Sensor 82 76 74 Pulse Rhythm Pulse Strength Respiratory Rate 12 12 20 Respiratory Effort / Characteristics Respiratory Depth Respiratory Pattern Blood Pressure 231/102 H Blood Pressure Mean 145 Blood Pressure Position Pulse Oximetry 98 99 100 Oxygen Delivery Method Oxygen Flow Rate Sepsis Recent Fever Within 48 Hours Sepsis New/Unexplained Change in Mental Status Sepsis Action Taken by Nursing Oxygen Flow Rate - Titration Pulse Oximetry Post Tiitration 03/14/23 14:40 03/14/23 14:50 03/14/23 15:08 Pulse Rate 70 Pulse Rate from SpO2 Sensor 71 73 80 Pulse Rhythm Pulse Strength Respiratory Rate 11 L Respiratory Effort / Characteristics Respiratory Depth Respiratory Pattern Blood Pressure 198/86 H Blood Pressure Mean 123 Blood Pressure Position Pulse Oximetry 100 99 100 Oxygen Delivery Method Nasal Cannula Nasal Cannula Oxygen Flow Rate 2 2 Sepsis Recent Fever Within 48 Hours Sepsis New/Unexplained Change in Mental Status Sepsis Action Taken by Nursing Oxygen Flow Rate - Titration Pulse Oximetry Post Tiitration 03/14/23 15:10 03/14/23 15:11 03/14/23 15:16 Pulse Rate 81 80 79 Pulse Rate from SpO2 Sensor 81 80 79 Pulse Rhythm Pulse Strength Respiratory Rate 15 11 L 14 Respiratory Effort / Characteristics Respiratory Depth Respiratory Pattern Blood Pressure 227/96 H Blood Pressure Mean 139 Blood Pressure Position Pulse Oximetry 100 100 99 Oxygen Delivery Method Nasal Cannula Nasal Cannula Oxygen Flow Rate 2 2 Sepsis Recent Fever Within 48 Hours Sepsis New/Unexplained Change in Mental Status Sepsis Action Taken by Nursing Oxygen Flow Rate - Titration Pulse Oximetry Post Tiitration 03/14/23 15:16 03/14/23 15:20 03/14/23 15:30 Pulse Rate 76 Pulse Rate from SpO2 Sensor 77 Pulse Rhythm Pulse Strength Respiratory Rate 15 Respiratory Effort / Characteristics Respiratory Depth Respiratory Pattern Blood Pressure 260/93 H 232/99 H Blood Pressure Mean 119 173 Blood Pressure Position Pulse Oximetry 99 Oxygen Delivery Method Oxygen Flow Rate Sepsis Recent Fever Within 48 Hours Sepsis New/Unexplained Change in Mental Status Sepsis Action Taken by Nursing Oxygen Flow Rate - Titration Pulse Oximetry Post Tiitration 03/14/23 15:30 03/14/23 15:40 03/14/23 15:45 Pulse Rate 79 75 Pulse Rate from SpO2 Sensor 78 76 Pulse Rhythm Pulse Strength Respiratory Rate 4 L 13 Respiratory Effort / Characteristics Respiratory Depth Respiratory Pattern Blood Pressure 218/93 H Blood Pressure Mean 144 Blood Pressure Position Pulse Oximetry 99 99 Oxygen Delivery Method Oxygen Flow Rate Sepsis Recent Fever Within 48 Hours Sepsis New/Unexplained Change in Mental Status Sepsis Action Taken by Nursing Oxygen Flow Rate - Titration Pulse Oximetry Post Tiitration 03/14/23 15:45 03/14/23 15:50 03/14/23 15:59 Pulse Rate 75 75 75 Pulse Rate from SpO2 Sensor 76 75 75 Pulse Rhythm Pulse Strength Respiratory Rate 15 12 17 Respiratory Effort / Characteristics Respiratory Depth Respiratory Pattern Blood Pressure Blood Pressure Mean Blood Pressure Position Pulse Oximetry 99 99 99 Oxygen Delivery Method Oxygen Flow Rate Sepsis Recent Fever Within 48 Hours Sepsis New/Unexplained Change in Mental Status Sepsis Action Taken by Nursing Oxygen Flow Rate - Titration Pulse Oximetry Post Tiitration 03/14/23 16:00 Pulse Rate Pulse Rate from SpO2 Sensor Pulse Rhythm Pulse Strength Respiratory Rate Respiratory Effort / Characteristics Respiratory Depth Respiratory Pattern Blood Pressure 210/87 H Blood Pressure Mean 116 Blood Pressure Position Pulse Oximetry Oxygen Delivery Method Oxygen Flow Rate Sepsis Recent Fever Within 48 Hours Sepsis New/Unexplained Change in Mental Status Sepsis Action Taken by Nursing Oxygen Flow Rate - Titration Pulse Oximetry Post Tiitration Laboratory Data 03/14/23 13:16 03/14/23 13:16 Lab Results 03/14/23 03/14/23 03/14/23 Range/Units 13:16 13:16 13:16 WBC 6.71 (4.8-10.8) K/ul RBC 3.14 L (4.70-6.10) M/uL Hgb 10.1 L (14.0-18.0) g/dl Hct 28.9 L (42.0-52.0) % MCV 92.0 (80.0-100.0) fL MCH 32.2 (25.0-34.0) pg MCHC 34.9 (32.0-36.0) g/dL RDW Std Deviation 44.4 (36.4-46.3) fL RDW Coeff of Kami 13.2 (11.5-14.5) % Plt Count 236 (130-400) K/uL MPV 10.1 (9.4-12.4) fL Immature Gran % (Auto) 0.4 % Neut % (Auto) 82.8 % Lymph % (Auto) 10.4 % [place] % (Auto) 5.8 % Eos % (Auto) 0.0 % Baso % (Auto) 0.6 % Neut # (Auto) 5.55 (1.40-6.50) K/uL Lymph # (Auto) 0.70 L (1.20-3.40) K/uL [place] # (Auto) 0.39 (0.11-0.59) K/uL Eos # (Auto) 0.00 (0.00-0.50) K/uL Baso # (Auto) 0.04 (0.00-0.20) K/uL Immature Gran # (Auto) 0.03 (0.01-0.20) K/uL PT 10.6 (9.0-12.0) Seconds INR 1.0 (0.9-1.1) VBG pH (7.36-7.41) VBG pCO2 (38-50) mmHg VBG pO2 mmHg VBG HCO3 mmol/L VBG O2 Saturation % VBG Base Excess mEq/L Sodium 123 L (136-145) mmol/L Potassium 3.4 L (3.5-5.1) mmol/L Chloride 81 L (98-107) mmol/L Carbon Dioxide 25 (21-32) mmol/L Anion Gap 17 H (3-11) BUN 52 H (6-23) mg/dl Creatinine 5.37 H* (0.6-1.4) mg/dl Est Cr Clr Drug Dosing 14.9 ml/min Est GFR ( Amer) 13.1 ml/min Est GFR (Non-Af Amer) 11.3 ml/min BUN/Creatinine Ratio 9.7 L (10-20) Glucose 772 H* (70-99(Fasting)) mg/dl POC Glucose (70-99) mg/dl Lactate (0.4-2.0) mmol/L Calcium 8.4 L (8.6-10.3) mg/dl Total Bilirubin 1.1 H (0.2-1.0) mg/dl AST 43 H (13-39) U/L ALT 55 H (7-52) U/L Alkaline Phosphatase 204 H (34-104) U/L Troponin I High Sens 20.7 H (0-20) pg/ml Total Protein 6.7 (6.0-8.3) gm/dl Albumin 4.2 (3.4-5.0) gm/dl Globulin 2.5 (2.5-4.0) gm/dl Albumin/Globulin Ratio 1.7 (0.9-2) Lipase 100 H (11-82) U/L 03/14/23 03/14/23 03/14/23 Range/Units 13:17 13:28 13:28 WBC (4.8-10.8) K/ul RBC (4.70-6.10) M/uL Hgb (14.0-18.0) g/dl Hct (42.0-52.0) % MCV (80.0-100.0) fL MCH (25.0-34.0) pg MCHC (32.0-36.0) g/dL RDW Std Deviation (36.4-46.3) fL RDW Coeff of Kami (11.5-14.5) % Plt Count (130-400) K/uL MPV (9.4-12.4) fL Immature Gran % (Auto) % Neut % (Auto) % Lymph % (Auto) % [place] % (Auto) % Eos % (Auto) % Baso % (Auto) % Neut # (Auto) (1.40-6.50) K/uL Lymph # (Auto) (1.20-3.40) K/uL [place] # (Auto) (0.11-0.59) K/uL Eos # (Auto) (0.00-0.50) K/uL Baso # (Auto) (0.00-0.20) K/uL Immature Gran # (Auto) (0.01-0.20) K/uL PT (9.0-12.0) Seconds INR (0.9-1.1) VBG pH 7.54 H (7.36-7.41) VBG pCO2 31 L (38-50) mmHg VBG pO2 55 mmHg VBG HCO3 27 mmol/L VBG O2 Saturation 89.8 % VBG Base Excess 4.5 mEq/L Sodium (136-145) mmol/L Potassium (3.5-5.1) mmol/L Chloride (98-107) mmol/L Carbon Dioxide (21-32) mmol/L Anion Gap (3-11) BUN (6-23) mg/dl Creatinine (0.6-1.4) mg/dl Est Cr Clr Drug Dosing ml/min Est GFR ( Amer) ml/min Est GFR (Non-Af Amer) ml/min BUN/Creatinine Ratio (10-20) Glucose (70-99(Fasting)) mg/dl POC Glucose > 600 H* (70-99) mg/dl Lactate 3.4 H* (0.4-2.0) mmol/L Calcium (8.6-10.3) mg/dl Total Bilirubin (0.2-1.0) mg/dl AST (13-39) U/L ALT (7-52) U/L Alkaline Phosphatase (34-104) U/L Troponin I High Sens (0-20) pg/ml Total Protein (6.0-8.3) gm/dl Albumin (3.4-5.0) gm/dl Globulin (2.5-4.0) gm/dl Albumin/Globulin Ratio (0.9-2) Lipase (11-82) U/L 03/14/23 03/14/23 Range/Units 15:17 15:24 WBC (4.8-10.8) K/ul RBC (4.70-6.10) M/uL Hgb (14.0-18.0) g/dl Hct (42.0-52.0) % MCV (80.0-100.0) fL MCH (25.0-34.0) pg MCHC (32.0-36.0) g/dL RDW Std Deviation (36.4-46.3) fL RDW Coeff of Kami (11.5-14.5) % Plt Count (130-400) K/uL MPV (9.4-12.4) fL Immature Gran % (Auto) % Neut % (Auto) % Lymph % (Auto) % [place] % (Auto) % Eos % (Auto) % Baso % (Auto) % Neut # (Auto) (1.40-6.50) K/uL Lymph # (Auto) (1.20-3.40) K/uL [place] # (Auto) (0.11-0.59) K/uL Eos # (Auto) (0.00-0.50) K/uL Baso # (Auto) (0.00-0.20) K/uL Immature Gran # (Auto) (0.01-0.20) K/uL PT (9.0-12.0) Seconds INR (0.9-1.1) VBG pH (7.36-7.41) VBG pCO2 (38-50) mmHg VBG pO2 mmHg VBG HCO3 mmol/L VBG O2 Saturation % VBG Base Excess mEq/L Sodium (136-145) mmol/L Potassium (3.5-5.1) mmol/L Chloride (98-107) mmol/L Carbon Dioxide (21-32) mmol/L Anion Gap (3-11) BUN (6-23) mg/dl Creatinine (0.6-1.4) mg/dl Est Cr Clr Drug Dosing ml/min Est GFR ( Amer) ml/min Est GFR (Non-Af Amer) ml/min BUN/Creatinine Ratio (10-20) Glucose (70-99(Fasting)) mg/dl POC Glucose (70-99) mg/dl Lactate 3.1 H* (0.4-2.0) mmol/L Calcium (8.6-10.3) mg/dl Total Bilirubin (0.2-1.0) mg/dl AST (13-39) U/L ALT (7-52) U/L Alkaline Phosphatase (34-104) U/L Troponin I High Sens 22.4 H (0-20) pg/ml Total Protein (6.0-8.3) gm/dl Albumin (3.4-5.0) gm/dl Globulin (2.5-4.0) gm/dl Albumin/Globulin Ratio (0.9-2) Lipase (11-82) U/L Administered Medications Potassium Chloride (K Dom / Wtr) 10 meq in 100 mls @ 100 mls/hr IV Q1H JACKI Stop: 03/14/23 16:29 Last Admin: 03/14/23 15:04 Dose: 100 mls/hr Documented By: GAUGE CONTROLLER Insulin Human Regular 250 (units/ Sodium Chloride) 250 mls @ 6.5 mls/hr IV .Q24H JACKI; Protocol Stop: 04/13/23 14:29 Last Admin: 03/14/23 15:09 Dose: 6.5 units/hr, 6.5 mls/hr Documented By: GAUGE CONTROLLER Co-signed By: TOSHIA Discontinued Medications Hydralazine HCl (Hydralazine Hcl 20 Mg/Ml Vial) 10 mg IV NOW STA Stop: 03/14/23 14:32 Last Admin: 03/14/23 15:12 Dose: 10 mg Documented By: GAUGE CONTROLLER Sodium Chloride (Nss) 500 mls @ 999 mls/hr IV .Q31M STA Stop: 03/14/23 13:46 Last Infusion: 03/14/23 14:42 Dose: 0 mls/hr Documented By: GAUGE CONTROLLER Admin: 03/14/23 13:25 Dose: 999 mls/hr Documented By: TOSHIA Insulin Human Regular (Novolin-R Bolus From Bag) 6.5 units IV ONE ONE Stop: 03/14/23 15:01 Last Admin: 03/14/23 15:47 Dose: 6.5 units Documented By: GAUGE CONTROLLER Co-signed By: DIAMANTE Labetalol HCl (Labetalol Hcl Iv 5 Mg/Ml 20ml) 10 mg IV NOW STA Stop: 03/14/23 13:52 Last Admin: 03/14/23 14:13 Dose: 10 mg Documented By: GAUGE CONTROLLER Co-signed By: JAREN Miscellaneous (Stat Iv Infusion Titration Per Protocol) 1 each N/A NOW STA Stop: 03/14/23 14:18 Last Admin: 03/14/23 15:34 Dose: Not Given Documented By: GAUGE CONTROLLER Miscellaneous (Hhs Goal Range 250-350 Mg/Dl) 1 each N/A ONE ONE Stop: 03/14/23 14:42 Last Admin: 03/14/23 15:49 Dose: 1 each Documented By: GAUGE CONTROLLER Ondansetron HCl (Ondansetron Inj 2 Mg/Ml 2 Ml Vial) 4 mg IV NOW STA Stop: 03/14/23 13:17 Last Admin: 03/14/23 13:25 Dose: 4 mg Documented By: TOSHIA Imaging Data Radiologist's Impression: Abdomen/Pelvis CT 03/14/23 13:16 CT SCAN OF THE ABDOMEN AND PELVIS WITHOUT IV CONTRAST CLINICAL HISTORY: Nausea and vomiting. COMPARISON STUDY: Abdominal CT dated 08/04/2022. TECHNIQUE: CT scan of the abdomen and pelvis is performed from the lung bases to the proximal femora. Images are reviewed in the axial, sagittal, and coronal planes. IV contrast was not administered for this examination. Note that the examination was performed in significantly suboptimal fashion without oral and IV contrast. The examination is also degraded by suboptimal patient positioning within the CT gantry. There is motion artifact, as well as streak artifact from the right arm which could not be elevated above the abdomen. A dose lowering technique was utilized adhering to the principles of ALARA. CT DOSE: 972.15 mGy.cm FINDINGS: Lung bases: The heart is top normal in size and without pericardial effusion. There is diminished attenuation of the cardiac blood pool last compared to the myocardium suggesting anemia. Dependent atelectasis is seen in the left lung. No airspace consolidation or pleural effusion is identified. Liver: The unenhanced liver is normal in size, contour, and attenuation. There is no intrahepatic biliary ductal dilatation. Gallbladder: There are calcified gallstones without CT evidence of acute cholecystitis. Spleen: Normal in size and attenuation. Pancreas: The unenhanced pancreas is moderately atrophic and grossly unremarkable. Adrenal glands: Unremarkable. Kidneys: The unenhanced kidneys demonstrate cortical atrophy and are without hydronephrosis. There is a 9 mm calculus within the right renal pelvis. Addit ional punctate nonobstructing calculus is in the right. There are also likely punctate nonobstructing left renal calculi. No ureteral stone is seen. Scattered renal cysts measure up to 1.5 cm. Abdominal vasculature: The abdominal aorta is normal in course and caliber noting moderate atherosclerotic calcification. Bowel: The distal stomach appears thick walled. The rectal wall appears mildly thickened. Fecal retention is noted in the rectosigmoid. No bowel obstruction is seen. There are scattered colonic diverticula without CT evidence of acute diverticulitis. The appendix is not identified and reported surgically absent. Peritoneum: There is no intraperitoneal free air or abdominal ascites. Lymphadenopathy: None. Pelvic viscera: Evaluation of the pelvis is degraded by streak artifact from hardware in the right femur. The prostate gland is enlarged and heterogeneous. The bladder wall is thickened and trabeculated indicating chronic outlet obstruction. There is pericystic inflammation. Skeletal structures: The skeletal structures are osteopenic. There are chronic compression deformities of T11, T12, and L5. Mild lumbosacral spondylosis is observed. No lytic or blastic lesions are seen. There is chronic deformity and postsurgical change in the left proximal femur. IMPRESSION: 1. Significantly suboptimal examination without oral and IV contrast. The examination is also degraded by motion artifact, streak artifact, and inability to properly position the patient within the CT gantry. 2. Prostatomegaly with evidence of chronic bladder outlet obstruction. There is pericystic inflammation. Correlate with clinical findings and urinalysis for evidence of cystitis. 3. The rectal wall appears thickened. Correlate clinically for evidence of a nonspecific proctitis. If warranted this could be further assessed with endoscopy. 4. The distal stomach appears thick-walled. Correlate clinically for evidence of gastritis. If clinically warranted this could be further assessed with endos copy. 5. Cholelithiasis. 6. Bilateral nephrolithiasis. 7. Additional findings as above. ACT 112: Negative or not required by law. Electronically signed by: Dev Burden M.D. 03/14/2023 3:50 PM Chest X-Ray 03/14/23 13:16 SINGLE VIEW CHEST CLINICAL HISTORY: Nausea and vomiting. FINDINGS: 2 AP, portable, supine chest radiographs are compared to study dated 12/04/2022. Correlation is made with chest CT dated 12/01/2022. The heart is enlarged. The pulmonary vasculature is noncongested. Chronic interstitial thickening is similar to previous. No airspace consolidation or large pleural effusion is identified. Scattered foci of parenchymal scarring are seen throughout both lungs. No pneumothorax is seen. The skeletal structures are osteopenic. The bony thorax is grossly intact. IMPRESSION: Cardiomegaly with no acute cardiopulmonary abnormality identified. ACT 112: Negative or not required by law. Electronically signed by: Dev Burden M.D. 03/14/2023 1:59 PM Discharge Plan Visit Data Chief Complaint: Vomiting Stated Complaint: n/v/d ED Provider: Rick Villatoro Discharge Problem: Acute hyperglycemia Forms Stand Alone Forms: [facility] [place] [facility] Prescriptions Prescriptions: No Action acetaminophen 325 mg capsule 650 mg PO Q4H PRN (Reason: Pain (Scale Score 1-3)) lorazepam 0.5 mg tablet 0.5 mg PO Q6H PRN (Reason: Anxiety) Qty: 60 0RF losartan 100 mg tablet 100 mg PO QAM Qty: 90 3RF atorvastatin 10 mg tablet 10 mg PO QAM Qty: 90 1RF (DME) pen needle, diabetic [Comfort EZ Pen [place]] 31 gauge x 5/16" needle See Rx Instructions .Route Qty: 500 3RF Rx Instructions: use 5 per day with insulin injections carvedilol 25 mg tablet 25 mg PO BID Rx Instructions: TAKE THIS MEDICATION WITH FOOD hydralazine 50 mg tablet 50 mg PO TID insulin glargine [Basaglar KwikPen U-100 Insulin] 100 unit/mL (3 mL) insulin pen 17 unit SUBCUT QAM MDD 17 Qty: 15 3RF insulin aspart U-100 [Novolog FlexPen U-100 Insulin] 100 unit/mL (3 mL) insulin pen 5 unit SUBCUT TIDM PRN (Reason: sliding scale) Qty: 15 5RF Rx Instructions: Use per sliding scale. 1 unit for every 8 grams of carb. Correction Factor 1 unit per 40mg/dL above goal range. MDD 40 units daily. mirtazapine 7.5 mg tablet 7.5 mg PO HS midodrine 5 mg tablet 5 mg PO .COMPLEX Rx Instructions: 5 mg orally as needed at dialysis; Novolin R FlexPen 100 unit/mL (3 mL) insulin pen 30 unit subcut DAILY Qty: 15 5RF ondansetron HCl 4 mg tablet 8 mg PO Q4 PRN (Reason: nausea or vomiting) Qty: 60 2RF melatonin 1 mg tablet 4 mg PO HS PRN (Reason: Sleep) sertraline 100 mg tablet 100 mg PO QAM Rx Instructions: TOTAL DOSE 125 MG--TAKES WITH 25 MG TAB. sertraline 25 mg tablet 25 mg PO QAM Rx Instructions: TOTAL DOSE 125 MG--TAKES WITH 100 MG TAB. Velphoro 500 mg tablet,chewable 1,000 mg PO TIDM amlodipine 10 mg tablet 10 mg PO QAM cholecalciferol (vitamin D3) [Vitamin D3] 50 mcg (2,000 unit) capsule 50 mcg PO QAM pantoprazole 40 mg tablet,delayed release (DR/EC) 40 mg PO BIDM minoxidil 2.5 mg tablet 5 mg PO DAILY Referrals Referrals: Genet Cool MD [Primary Care Provider] -
[2023-03-14 13:46] LABS: Base Excess VBG 4.5 mEq/L; HCO3 VBG 27 mmol/L; Oxygen Saturation VBG 89.8 %; PCO2 VBG 31 mmHg (38-50); PO2 VBG 55 mmHg; pH VBG 7.54 (7.36-7.41)
[2023-03-14] MEDS ORDERED: LABETALOL HCL IV 5 MG/ML 20ML IV STA ×2 (13:51→16:24)
[2023-03-14 13:55] LABS: Basophils # (auto) 0.04 K/uL (0.00-0.20); Basophils % (auto) 0.6 %; Hematocrit (blood only) 28.9 % (42.0-52.0); Hemoglobin 10.1 g/dl (14.0-18.0); Immature Granulocytes # (auto) 0.03 K/uL (0.01-0.20); Immature Granulocytes % (auto) 0.4 %; Lymphocytes % (auto) 10.4 %; Mean Corpuscular Hemoglobin 32.2 pg (25.0-34.0); Mean Corpuscular Hgb Conc 34.9 g/dL (32.0-36.0); Mean Platelet Volume 10.1 fL (9.4-12.4); Monocytes # (auto) 0.39 K/uL (0.11-0.59); Monocytes % (auto) 5.8 %; Neutrophils # (auto) 5.55 K/uL (1.40-6.50); Neutrophils % (auto) 82.8 %; Platelet Count 236 K/uL (130-400); RDW Coefficient of Variation 13.2 % (11.5-14.5); RDW Standard Deviation 44.4 fL (36.4-46.3); Red Blood Count 3.14 M/uL (4.70-6.10); White Blood Count 6.71 K/ul (4.8-10.8)
--- NOTE | 2023-03-14 14:01 | XRay Report ---
SINGLE VIEW CHEST CLINICAL HISTORY: Nausea and vomiting. FINDINGS: 2 AP, portable, supine chest radiographs are compared to study dated 12/04/2022. Correlation is made with chest CT dated 12/01/2022. The heart is enlarged. The pulmonary vasculature is nonconges sami. Chronic interstitial thickening is similar to previous. No airspace consolidation or large pleur al effusion is identified. Scattered foci of parenchymal scarring are seen throughout both lungs. No pneumothorax is seen. The skeletal structures are osteopenic. The bony thorax is grossly intact. IMPRESSION: Cardiomegaly with no acute cardiopulmonary abnormality identified. ACT 112: Negative or not required by law. Electronically signed by: Dev Burden M.D. 03/14/2023 1:59 PM
[2023-03-14 14:16] LABS: Albumin Globulin Ratio 1.7 (0.9-2); Albumin Level 4.2 gm/dl (3.4-5.0); BUN Creatinine Ratio 9.7 (10-20); Bilirubin,Total 1.1 mg/dl (0.2-1.0); Calcium 8.4 mg/dl (8.6-10.3); Globulin 2.5 gm/dl (2.5-4.0); Potassium 3.4 mmol/L (3.5-5.1); Total Protein 6.7 gm/dl (6.0-8.3)
[2023-03-14 14:17] LABS: Creatinine Clr Calc Pharmacy 14.9 ml/min; Est GFR (African American) 13.1 ml/min; Est GFR (Non-African American) 11.3 ml/min
[2023-03-14] MEDS ORDERED: GLUCOSE 10 TAB/TUBE PO PRN (14:17)
[2023-03-14] MEDS ORDERED: CARBOHYDRATES FOR HYPOGLYCEMIA PO PRN (14:17)
[2023-03-14] MEDS ORDERED: STAT IV Infusion **Titration per Protocol STA ×2 (14:17→19:06)
[2023-03-14] MEDS ORDERED: GLUCOSE 40% GEL 15 GM TUBE PO PRN (14:17)
[2023-03-14] MEDS ORDERED: GLUCAGON FOR INJ 1 MG VIAL SQ PRN (14:17)
[2023-03-14] MEDS ORDERED: DEXTROSE 50% 50 ML SYRINGE IV PRN (14:17)
[2023-03-14 14:24] LABS: Prothrombin Time 10.6 Seconds (9.0-12.0)
[2023-03-14 14:30] LABS: Troponin I High Sensitivity 20.7 pg/ml (0-20)
[2023-03-14] MEDS ORDERED: hydrALAZINE HCL 20 MG/ML VIAL IV STA (14:31)
[2023-03-14] MEDS ORDERED: HHS GOAL RANGE 250-350 mg/dl ONE (14:41)
[2023-03-14] MEDS ORDERED: NovoLIN-R BOLUS FROM BAG IV ONE (15:00)
[2023-03-14] MEDS: POTASSIUM CHLORIDE / WTR 10 MEQ/100 ML PLCT IV SCH ×3 (15:04→22:25)
[2023-03-14] MEDS: INSULIN REGULAR 250 UNITS in SODIUM CHLORIDE 0.9% 247.5 ML IV SCH (15:09)
--- NOTE | 2023-03-14 15:51 | History & Physical Report ---
Date of Service March 14, 2023 Assessment & Plan (1) Cyclical vomiting syndrome: Plan: N/V/D since 0430 on 03/14 EKG sinus rhythm with first-degree AV block Hyponatremia 123 (corrected to 134 based on hyperglycemia at 772) Lactate 3.4 --> 3.1 VBG pH at 7.54 --> 7.47; metabolic alkalosis; trending in the right direction Anion gap at 17 on admission suggestive of DKA with combined metabolic alkalosis 500 mL NSS given in the ED Caution fluid overload with ESRD patient Keep patient n.p.o. for now Continuous telemetry monitoring Caution Zofran QTc 522; allergy to promethazine (2nd line) Patient reports he has done well on benzos and Benadryl for nausea in the past Will trial lorazepam IV 0.5 mg Pantoprazole 40 mg IV twice daily Oral meds continued for when patient is able to keep down medications (2) DKA (diabetic ketoacidosis): Plan: DKA order set except for IV fluids given he does not get osmotic diuresis given lack of urine production, need to replace vomiting/sweating losses only Hold off additional fluids for now after 500ml NSS given in ER, Likely to need D10W or D50W boluses once glucose reducing Insulin IV drip per DKA protocol Ketoacidosis present given elevated anion gap however offset by concurrent metabolic alkalosis presumably from vomiting (3) Coffee ground vomiting: Plan: Gastric occult blood Pantoprazole 40mg IV BID This is similar to prior occasions and only once required blood transfusion in 2019 (4) Hypertensive urgency: Plan: Due to unable to take his usual oral medications, usually resolves when able to take oral Hydralazine q4h 10mg IV for sBP > 180, Labetalol q4h 10mg IV PRN for sBP > 180 (5) ESRD (end stage renal disease): Plan: eGFR 11.3 BUN 52, Cr 5.37 Dialysis M/W/Fr Does not produce Consulted nephrology, appreciate their insight (6) Hypertension: Plan: BP elevated at 226/97 on arrival IV labetalol/hydralazine given in the ED Switch between Hydralazine 10 mg IV every 4 hours as needed and Labetalol 10mg q2h PRN for sBP > 180 Continue amlodipine, carvedilol, losartan when able to take PO (7) 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 then advance to clear liquid and DM1 diet once patient is tolerating oral intake Pharmacy glycemic consult (8) Elevated troponin: Plan: Elevated troponin 20.7 --> 22.4 Continuous telemetry monitoring (9) Diabetic gastroparesis: (10) Metabolic alkalosis: Plan: Suspected due to vomiting Plan VTE Prophyalxis - deferred pending gastric occult blood due to "coffee ground comiting" Diet - NPO Disposition - Admit to PCU telemetry Admission and Anticipated Discharge Date Admission Date: March 14, 2023 History of Present Illness Chief Complaint: Severe nausea and vomiting Primary Care Provider: Genet Cool MD Jorge Alberto De Los Santos is a 52-year-old male with PMH of ESRD on dialysis, T1DM, diabetic gastroparesis, HTN, HLD, GERD, anxiety, depression, and CAD well known to this service with cyclic vomiting episodes usually leading to DKA. He presents via EMS for intractable N/V/D since 0 this morning. Coffee-ground emesis. Dialysis patient M/W/Fr with last session 03/13. He does not produce any urine. Patient denies pain at this time, just generalized weakness and fatigue from nausea/vomiting. No sick contacts. Took morning meds, but vomited them up afterward. He is not tolerating fluids, or solids. Vomited 15min after attempting to eat this morning. This feels similar to all his previously episodes. Patient endorses feeling lightheaded with chills and fatigue. Patient denies fever, sweating, difficulty swallowing, CP, SOB, abdominal pain. ED course: 500mL NSS, insulin, potassium chloride IV, Zofran, labetalol, hydralazine Allergies Allergy/AdvReac Type Severity Reaction Status Date / Time shellfish derived Allergy Severe anaphylaxis Verified 03/11/23 15:58 codeine Allergy Intermediate Hives Verified 03/11/23 15:58 promethazine Allergy Intermediate itchy/hives Verified 03/11/23 15:58 Home Medications Medication Instructions Recorded Confirmed Type acetaminophen 325 mg capsule 650 mg PO Q4H PRN Pain (Scale 09/28/20 03/14/23 History Score 1-3) lorazepam 0.5 mg tablet 0.5 mg PO Q6H PRN Anxiety #60 tabs 03/27/21 03/14/23 Rx insulin aspart U-100 100 unit/mL 5 unit (0.05 mL) subcut TIDM PRN 10/24/21 03/14/23 Rx (3 mL) subcutaneous pen (Novolog sliding scale #15 mL FlexPen U-100 Insulin aspart) cholecalciferol (vitamin D3) 50 50 mcg PO QAM 10/25/21 03/14/23 History mcg (2,000 unit) capsule (Vitamin D3) sertraline 100 mg tablet 100 mg PO QAM 12/29/21 03/14/23 History sertraline 25 mg tablet 25 mg PO QAM 12/29/21 03/14/23 History sucroferric oxyhydroxide 500 mg 1,000 mg PO TIDM 12/29/21 03/14/23 History chewable tablet (Velphoro) amlodipine 10 mg tablet 10 mg PO QAM 03/01/22 03/14/23 History losartan 100 mg tablet 100 mg PO QAM #90 tabs 06/05/22 03/14/23 Rx pantoprazole 40 mg tablet,delayed 40 mg PO BIDM 07/20/22 03/14/23 History release atorvastatin 10 mg tablet 10 mg PO QAM #90 tabs 08/11/22 03/14/23 Rx ondansetron HCl 4 mg tablet 8 mg PO Q4 PRN nausea or vomiting 08/14/22 03/14/23 Rx #60 tabs melatonin 1 mg tablet 4 mg PO HS PRN Sleep 09/18/22 03/14/23 History pen needle, diabetic 31 gauge x #500 ea 12/08/22 03/14/23 Rx 5/16" (Comfort EZ Pen [place]) insulin glargine 100 unit/mL (3 17 unit (0.17 mL) subcut QAM #15 mL 12/16/22 03/14/23 Rx mL) subcutaneous pen (Basaglar KwikPen U-100 Insulin) carvedilol 25 mg tablet 25 mg PO BID 02/19/23 03/14/23 History hydralazine 50 mg tablet 50 mg PO TID 02/19/23 03/14/23 History midodrine 5 mg tablet 5 mg PO .COMPLEX 02/19/23 03/14/23 History mirtazapine 7.5 mg tablet 7.5 mg PO HS 02/19/23 03/14/23 History insulin regular human 100 unit/mL 30 unit (0.3 mL) subcut DAILY #15 02/20/23 03/14/23 Rx (3 mL) subcutaneous pen (Novolin R mL FlexPen) minoxidil 2.5 mg tablet 5 mg PO DAILY 03/14/23 03/14/23 History Past Med/Surg History Medical History (Updated 03/15/23 @ 08:01 by Guevara Loomis MD) Anemia of chronic disease Anxiety AV fistula left upper arm CAD (coronary artery disease) mild, non-obstructive CAD per 10/2018 cardiac cath> [facility] Chronic pleural effusion PleurX catheter placed 01/24/21--removed 07/2021 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 Lor Guadalupe; [facility]) GERD (gastroesophageal reflux disease) History of nephrolithiasis History of pulmonary embolism 11/2020; unk etiology; was on warfarin (taken off 05/2021) Hypertension Hypertensive emergency Hypertensive urgency Junctional rhythm Kidney stone on right side Lumbar radiculopathy Musculoskeletal chest pain Nausea & vomiting Palliative care encounter Personal history of diabetic foot ulcer Urolithiasis Surgical History H/O shoulder surgery RIGHT History of appendectomy History of cardiac cath 10/2018= no stents, no obstructive disease (at [facility]) History of cataract surgery History of esophagogastroduodenoscopy (EGD) (~03/08/20) History of hip surgery left HIP ARTHROSCOPY History of lithotripsy History of open reduction and internal fixation (ORIF) procedure right hip Nausea and vomiting after administration of anesthetic agent S/P arteriovenous (AV) fistula creation Family History Grandfather Myocardial infarction Grandfather (Maternal) Family history of diabetes mellitus Uncle Myocardial infarction Father Hypertension Mother Kidney stone Other No family history of adverse response to anesthesia Denies family history of Colon cancer Ovarian cancer Prostate cancer Breast cancer Social History (Updated 01/29/23 @ 10:37 by Rolanda Gould LPN) Smoking Status: Never smoker Tobacco Type: Smokeless Tobacco (Dip or Chew) Second Hand Exposure: No; Do You Dip or Chew Tobacco: No (quit 2019); Hx Alcohol Use: No Hx Substance Use: No Preferred Language: Thai Communication Ability: Effective Visual Impairment: No Limitations Hearing Ability: Normal 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 Beliefs That Will Affect Care: None marital status: Current Living Situation: Family Current Living Situation Comment: single story home with parents current occupational status: disabled How many Children do You have: 2 Other Information That Helps Us Care for You: No Feels Safe at Home: Yes Safety Concerns: Feels Safe At This Time Childhood Exposure to Second-Hand Smoke: Yes Dental Care, Regularly: No Physical Activity Frequency: 1-2 Times per Week Seatbelt Use: always Sunscreen Use: No Gender Identity: Male Assistive Devices: Denture - Upper and Hearing Aid - Bilateral Review of Systems Review of Systems: All systems reviewed & are unremarkable except as noted in HPI & below Physical Exam Constitutional: well developed and + acute distress (nausea and vomting); + not well nourished ENMT: Mouth: + dry oral mucous membranes Respiratory: normal respiratory effort, lungs clear to auscultation Cardiovascular: Rate/Rhythm: regular rhythm and + tachycardic Heart Sounds: no murmur Extremities: normal capillary refill; no calf tenderness and no pedal edema Gastrointestinal (Abdomen): Inspection/Auscultation: abdomen normal to inspection; abdomen not distended Percussion/Palpation: + abdomen tender (epigatric) and abdomen soft; no guarding and abdomen not rigid Skin: Dry Neurologic: moves all extremities and awake; not confused Psychiatric: A+Ox3, euthymic affect Results & Data Results & Data Vital Signs (Past 12 Hours) Vital Signs Pulse Resp BP Pulse Ox O2 Del Method O2 Flow Rate 03/14/23 14:40 70 11 L 198/86 H 100 03/14/23 14:30 74 20 100 03/14/23 14:20 76 12 99 03/14/23 14:13 82 12 231/102 H 98 03/14/23 14:10 80 6 L 99 03/14/23 14:00 83 15 100 03/14/23 14:39 71 198/86 H 03/14/23 14:13 82 231/102 H 03/14/23 13:50 83 8 L 100 Nasal Cannula 2 03/14/23 13:40 84 6 L 65 L 03/14/23 13:30 80 7 L 98 03/14/23 13:27 83 19 99 03/14/23 13:16 86 22 94 Room Air 03/14/23 13:40 65 L Room Air 0 03/14/23 13:34 81 03/14/23 13:10 86 22 226/97 H 98 Room Air Laboratory Results Abnormal lab results 03/14/23 03/14/23 03/14/23 Range/Units 13:16 13:16 13:17 RBC 3.14 L (4.70-6.10) M/uL Hgb 10.1 L (14.0-18.0) g/dl Hct 28.9 L (42.0-52.0) % Lymph # (Auto) 0.70 L (1.20-3.40) K/uL VBG pH (7.36-7.41) VBG pCO2 (38-50) mmHg Sodium 123 L (136-145) mmol/L Potassium 3.4 L (3.5-5.1) mmol/L Chloride 81 L (98-107) mmol/L Anion Gap 17 H (3-11) BUN 52 H (6-23) mg/dl Creatinine 5.37 H* (0.6-1.4) mg/dl BUN/Creatinine Ratio 9.7 L (10-20) Glucose 772 H* (70-99(Fasting)) mg/dl POC Glucose > 600 H* (70-99) mg/dl Lactate (0.4-2.0) mmol/L Calcium 8.4 L (8.6-10.3) mg/dl Total Bilirubin 1.1 H (0.2-1.0) mg/dl AST 43 H (13-39) U/L ALT 55 H (7-52) U/L Alkaline Phosphatase 204 H (34-104) U/L Troponin I High Sens 20.7 H (0-20) pg/ml Lipase 100 H (11-82) U/L 1003/14/23 03/14/23 Range/Units 13:28 13:28 15:17 RBC (4.70-6.10) M/uL Hgb (14.0-18.0) g/dl Hct (42.0-52.0) % Lymph # (Auto) (1.20-3.40) K/uL VBG pH 7.54 H (7.36-7.41) VBG pCO2 31 L (38-50) mmHg Sodium (136-145) mmol/L Potassium (3.5-5.1) mmol/L Chloride (98-107) mmol/L Anion Gap (3-11) BUN (6-23) mg/dl Creatinine (0.6-1.4) mg/dl BUN/Creatinine Ratio (10-20) Glucose (70-99(Fasting)) mg/dl POC Glucose (70-99) mg/dl Lactate 3.4 H* 3.1 H* (0.4-2.0) mmol/L Calcium (8.6-10.3) mg/dl Total Bilirubin (0.2-1.0) mg/dl AST (13-39) U/L ALT (7-52) U/L Alkaline Phosphatase (34-104) U/L Troponin I High Sens (0-20) pg/ml Lipase (11-82) U/L Diagnostic Findings SINGLE VIEW CHEST CLINICAL HISTORY: Nausea and vomiting. FINDINGS: 2 AP, portable, supine chest radiographs are compared to study dated 12/04/2022. Correlation is made with chest CT dated 12/01/2022. The heart is enlarged. The pulmonary vasculature is noncongested. Chronic interstitial thickening is similar to previous. No airspace consolidation or large pleural effusion is identified. Scattered foci of parenchymal scarring are seen throughout both lungs. No pneumothorax is seen. The skeletal structures are osteopenic. The bony thorax is grossly intact. IMPRESSION: Cardiomegaly with no acute cardiopulmonary abnormality identified. Medications Administered ER Medications Given: Normal saline 500ml bolus Ondansetron 4mg IV Labetalol 10mg IV Potassium chloride 10meq IV x2 Hydralazine 10mg IV Insulin IV drip - intially prescribed HHS protocol but switched to DKA ECG Rate (beats per minute): 81 Rhythm: normal sinus Findings: + 1st degree AV block and + prolonged QT (QTC 522 ms) Comparison ECG Date: from (March 05, 2023) Change: no significant change Code Status & VTE Plan Code Status Full VTE Prophylaxis Plan VTE Prophylaxis will be ordered: No Critical Care Time Critical Care Time: Yes Total Critical Care Time: 45 PG Care Time/CCT Total # of Minutes Spent Total Time Spent with Patient: Total time spent is greater than 50% in coordination of care (as documented) at patient's floor/unit and/or counseling patient: Critical Care Time: Yes Total Critical Care Time: 45 Coding Level of Care Code 54634 INT INP/OBS CARE 3/75MIN Diagnoses Cyclical vomiting syndrome R11.15 DKA (diabetic ketoacidosis) E11.10 Coffee ground vomiting K92.0 Hypertensive urgency I16.0 ESRD (end stage renal disease) N18.6 Hypertension I10 Hypertension type: unspecified 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
--- NOTE | 2023-03-14 15:52 | CT Scan Report ---
CT SCAN OF THE ABDOMEN AND PELVIS WITHOUT IV CONTRAST CLINICAL HISTORY: Nausea and vomiting. COMPARISON STUDY: Abdominal CT dated 08/04/2022. TECHNIQUE: CT scan of the abdomen and pelvis is performed from the lung bases to the proximal femora. Images are reviewed in the axial, sagittal, and coronal planes. IV contrast was not administered for this examination. Note that the examination was performed in significantly suboptimal fashion withou t oral and IV contrast. The examination is also degraded by suboptimal patient positioning within the CT gantry. There is motion artifact, as well as streak artifact from the right arm which could not b e elevated above the abdomen. A dose lowering technique was utilized adhering to the principles of AL CACHORRO. CT DOSE: 972.15 mGy.cm FINDINGS: Lung bases: The heart is top normal in size and without pericardial effusion. There is diminished att enuation of the cardiac blood pool last compared to the myocardium suggesting anemia. Dependent atele ctasis is seen in the left lung. No airspace consolidation or pleural effusion is identified. Liver: The unenhanced liver is normal in size, contour, and attenuation. There is no intrahepatic ginette iary ductal dilatation. Gallbladder: There are calcified gallstones without CT evidence of acute cholecystitis. Spleen: Normal in size and attenuation. Pancreas: The unenhanced pancreas is moderately atrophic and grossly unremarkable. Adrenal glands: Unremarkable. Kidneys: The unenhanced kidneys demonstrate cortical atrophy and are without hydronephrosis. There is a 9 mm calculus within the right renal pelvis. Additional punctate nonobstructing calculus is in the right. There are also likely punctate nonobstructing left renal calculi. No ureteral stone is seen. Scattered renal cysts measure up to 1.5 cm. Abdominal vasculature: The abdominal aorta is normal in course and caliber noting moderate atheroscle rotic calcification. Bowel: The distal stomach appears thick walled. The rectal wall appears mildly thickened. Fecal reten tion is noted in the rectosigmoid. No bowel obstruction is seen. There are scattered colonic divertic roberto without CT evidence of acute diverticulitis. The appendix is not identified and reported surgica lly absent. Peritoneum: There is no intraperitoneal free air or abdominal ascites. Lymphadenopathy: None. Pelvic viscera: Evaluation of the pelvis is degraded by streak artifact from hardware in the right fe mur. The prostate gland is enlarged and heterogeneous. The bladder wall is thickened and trabeculated indicating chronic outlet obstruction. There is pericystic inflammation. Skeletal structures: The skeletal structures are osteopenic. There are chronic compression deformitie s of T11, T12, and L5. Mild lumbosacral spondylosis is observed. No lytic or blastic lesions are seen . There is chronic deformity and postsurgical change in the left proximal femur. IMPRESSION: 1. Significantly suboptimal examination without oral and IV contrast. The examination is also degrade d by motion artifact, streak artifact, and inability to properly position the patient within the CT g antry. 2. Prostatomegaly with evidence of chronic bladder outlet obstruction. There is pericystic inflammati on. Correlate with clinical findings and urinalysis for evidence of cystitis. 3. The rectal wall appears thickened. Correlate clinically for evidence of a nonspecific proctitis. I f warranted this could be further assessed with endoscopy. 4. The distal stomach appears thick-walled. Correlate clinically for evidence of gastritis. If clinic ally warranted this could be further assessed with endoscopy. 5. Cholelithiasis. 6. Bilateral nephrolithiasis. 7. Additional findings as above. ACT 112: Negative or not required by law. Electronically signed by: Dev Burden M.D. 03/14/2023 3:50 PM
[2023-03-14] MEDS ORDERED: PANTOprazole 40 MG in SYRINGE 0 ML IV STA (16:04)
[2023-03-14] MEDS ORDERED: LORazepam 2 MG/1 ML VIAL IV STA (16:24)
[2023-03-14] MEDS: INSULIN ASPART PER UNIT CHARGE SC SCH (17:12)
[2023-03-14] MEDS ORDERED: INSULIN ASPART PER UNIT CHARGE SC SCH (19:06)
[2023-03-14] MEDS ORDERED: PHARMACY GLYCEMIC MGMT CONSULT PRN (19:06)
[2023-03-14] MEDS ORDERED: DKA GOAL RANGE 150-250 mg/dl ONE (19:06)
[2023-03-14] MEDS ORDERED: MIDODRINE HCL 2.5 MG TAB PO PRN (19:06)
[2023-03-14] MEDS ORDERED: INSULIN REGULAR 250 UNITS in SODIUM CHLORIDE 0.9% 247.5 ML IV SCH (19:06)
[2023-03-14] MEDS ORDERED: hydrALAZINE HCL 20 MG/ML VIAL IV PRN ×2 (19:06→20:59)
[2023-03-14] MEDS ORDERED: MELATONIN 3 MG TAB PO PRN (19:21)
[2023-03-14 20:03] LABS: Calcium 8.7 mg/dl (8.6-10.3); Potassium 3.4 mmol/L (3.5-5.1)
[2023-03-14 20:13] LABS: BUN Creatinine Ratio 9.4 (10-20); Creatinine Clr Calc Pharmacy 13.6 ml/min; Est GFR (African American) 12.6 ml/min; Est GFR (Non-African American) 10.9 ml/min; Phosphorus 3.4 mg/dl (2.5-4.9)
[2023-03-14] MEDS: LORazepam 2 MG/1 ML VIAL IV PRN (20:27)
[2023-03-14] MEDS ORDERED: LABETALOL HCL IV 5 MG/ML 20ML IV PRN (20:59)
[2023-03-14] MEDS ORDERED: DEXTROSE 10% 1,000 ML IV SCH (21:00)
[2023-03-14 23:35] LABS: Calcium 8.2 mg/dl (8.6-10.3); Magnesium 1.9 mg/dl (1.7-2.4); Potassium 3.6 mmol/L (3.5-5.1)
[2023-03-14 23:45] LABS: BUN Creatinine Ratio 9.5 (10-20); Creatinine Clr Calc Pharmacy 13.2 ml/min; Est GFR (African American) 12.1 ml/min; Est GFR (Non-African American) 10.5 ml/min
[2023-03-14] MEDS: hydrALAZINE TAB 50 MG TAB PO SCH (23:50)
[2023-03-14] MEDS: carvediloL 25 MG TAB PO SCH (23:50)
[2023-03-14] MEDS: MIRTAZAPINE TAB 15 MG TAB PO SCH (23:53)
[2023-03-15] MEDS: POTASSIUM CHLORIDE / WTR 10 MEQ/100 ML PLCT IV SCH (00:04)
[2023-03-15] MEDS: INSULIN ASPART PER UNIT CHARGE SC SCH ×5 (00:05→21:19)
[2023-03-15] MEDS: INSULIN REGULAR 250 UNITS in SODIUM CHLORIDE 0.9% 247.5 ML IV SCH ×2 (01:03→08:54)
[2023-03-15 04:47] LABS: Albumin Level 3.6 gm/dl (3.4-5.0); Bilirubin,Total 0.8 mg/dl (0.2-1.0); Calcium 8.1 mg/dl (8.6-10.3); Magnesium 1.9 mg/dl (1.7-2.4); Potassium 3.4 mmol/L (3.5-5.1)
[2023-03-15 04:56] LABS: Albumin Globulin Ratio 1.7 (0.9-2); BUN Creatinine Ratio 8.4 (10-20); Creatinine Clr Calc Pharmacy 11.8 ml/min; Est GFR (African American) 10.6 ml/min; Est GFR (Non-African American) 9.1 ml/min; Globulin 2.1 gm/dl (2.5-4.0); Phosphorus 4.3 mg/dl (2.5-4.9); Total Protein 5.7 gm/dl (6.0-8.3)
[2023-03-15] MEDS ORDERED: LACTATED RINGER'S 500 ML IV ONE (05:11)
[2023-03-15] MEDS ORDERED: POTASSIUM CHLORIDE CRTAB 20 MEQ TABCR PO STA ×2 (05:13→12:14)
[2023-03-15 08:04] LABS: Basophils # (auto) 0.03 K/uL (0.00-0.20); Basophils % (auto) 0.2 %; Eosinophils % (auto) 0.7 %; Hematocrit (blood only) 27.2 % (42.0-52.0); Hemoglobin 9.5 g/dl (14.0-18.0); Immature Granulocytes # (auto) 0.06 K/uL (0.01-0.20); Immature Granulocytes % (auto) 0.4 %; Lymphocytes # (auto) 1.52 K/uL (1.20-3.40); Lymphocytes % (auto) 9.9 %; Mean Corpuscular Hemoglobin 32.3 pg (25.0-34.0); Mean Corpuscular Hgb Conc 34.9 g/dL (32.0-36.0); Mean Corpuscular Volume 92.5 fL (80.0-100.0); Mean Platelet Volume 9.9 fL (9.4-12.4); Monocytes # (auto) 0.96 K/uL (0.11-0.59); Monocytes % (auto) 6.3 %; Neutrophils # (auto) 12.64 K/uL (1.40-6.50); Neutrophils % (auto) 82.5 %; Platelet Count 244 K/uL (130-400); RDW Coefficient of Variation 13.3 % (11.5-14.5); RDW Standard Deviation 44.9 fL (36.4-46.3); Red Blood Count 2.94 M/uL (4.70-6.10); White Blood Count 15.31 K/ul (4.8-10.8)
[2023-03-15 08:34] LABS: BUN Creatinine Ratio 8.3 (10-20); Creatinine Clr Calc Pharmacy 11.6 ml/min; Est GFR (African American) 10.1 ml/min; Est GFR (Non-African American) 8.8 ml/min; Magnesium 1.8 mg/dl (1.7-2.4); Phosphorus 4.4 mg/dl (2.5-4.9); Potassium 3.1 mmol/L (3.5-5.1)
--- NOTE | 2023-03-15 11:12 | Electrocardiogram Report ---
Test Reason : Blood Pressure : / mmHG Vent. Rate : 081 BPM Atrial Rate : 081 BPM P-R Int : 224 ms QRS Dur : 098 ms QT Int : 450 ms P-R-T Axes : 054 -32 071 degrees QTc Int : 522 ms Sinus rhythm with 1st degree A-V block Possible Left atrial enlargement Left axis deviation Left ventricular hypertrophy with repolarization abnormality Prolonged QT Abnormal ECG When compared with ECG of 05-MAR-2023 13:34, (unconfirmed) No significant change was found Confirmed by Jorge Alberto Romero ([id number]) on 03/15/2023 11:12:10 AM Referred By: REFERRED SELF Confirmed By:Jorge Alberto Romero
[2023-03-15] MEDS ORDERED: LANTUS PER UNIT CHARGE SC ONE (11:15)
--- NOTE | 2023-03-15 11:30 | Electrocardiogram Report ---
Test Reason : Blood Pressure : / mmHG Vent. Rate : 077 BPM Atrial Rate : 077 BPM P-R Int : 204 ms QRS Dur : 098 ms QT Int : 438 ms P-R-T Axes : 043 -25 176 degrees QTc Int : 495 ms Normal sinus rhythm Possible Left atrial enlargement Left ventricular hypertrophy Nonspecific T wave abnormality Prolonged QT Abnormal ECG When compared with ECG of 14-MAR-2023 13:19, (unconfirmed) Nonspecific T wave abnormality, worse in Inferior leads Confirmed by Jorge Alberto Romero ([id number]) on 03/15/2023 11:30:35 AM Referred By: REFERRED SELF Confirmed By:Jorge Alberto Romero
[2023-03-15] MEDS: PANTOprazole 40 MG in SYRINGE 0 ML IV SCH ×2 (11:37→21:17)
[2023-03-15] MEDS: CHOLECALCIFEROL 1,000 UNITS 25 MCG TAB PO SCH (11:38)
[2023-03-15] MEDS: LOSARTAN POTASSIUM 50 MG TAB PO SCH (11:38)
[2023-03-15] MEDS: SERTRALINE HCL 50 MG TABLET PO SCH (11:38)
[2023-03-15] MEDS: SERTRALINE HCL 100 MG TABLET PO SCH (11:38)
[2023-03-15] MEDS: carvediloL 25 MG TAB PO SCH ×2 (11:39→17:32)
[2023-03-15] MEDS: minoxidiL 2.5 MG TAB PO SCH (11:39)
[2023-03-15] MEDS: hydrALAZINE TAB 50 MG TAB PO SCH ×3 (11:39→21:18)
[2023-03-15] MEDS: amLODIPine BESYLATE 5 MG TAB PO SCH (11:40)
[2023-03-15] MEDS: ATORVASTATIN 10 MG TAB PO SCH (11:40)
--- NOTE | 2023-03-15 11:52 | Hospitalist Progress Note ---
Date of Service March 15, 2023 Assessment & Plan (1) Cyclical vomiting syndrome: Plan: N/V/D since 0430 on 03/14 EKG sinus rhythm with first-degree AV block Hyponatremia 123 (corrected to 134 based on hyperglycemia at 772) Lactate 3.4 --> 3.1 VBG pH at 7.54 --> 7.47; combined metabolic alkalosis along with metabolic acidosis Anion gap at 17 on admission suggestive of DKA with combined metabolic alkalosis 500 mL NSS given in the ED-Caution fluid overload with ESRD patient Caution Zofran QTc 522; allergy to promethazine (2nd line) Patient reports he has done well on benzos and Benadryl for nausea in the past continue lorazepam IV 0.5 mg Pantoprazole 40 mg IV twice daily Oral meds continued for when patient is able to keep down medications -adv diet to clears as is improved -dc D10W -replace K+ cautiously in setting of ESRD (2) DKA (diabetic ketoacidosis): Plan: DKA order set except for IV fluids given he does not get osmotic diuresis given lack of urine production, need to replace vomiting/sweating losses only Hold off additional fluids for now after 500ml NSS given in ER, and can dc D10W now that weaning off insulin gtt Insulin IV drip per DKA protocol used and now weaning off, started Lantus and Novolog although he now uses regular insulin as outpt Ketoacidosis present given elevated anion gap however offset by concurrent metabolic alkalosis presumably from vomiting Resolved, advance diet Likely precipitated by N/V from gastroparesis and subsequent lack of use of regular insulin (3) Coffee ground vomiting: Plan: Gastric occult blood pending, none further since admission hgb stable from previosus at 9.5 continue Pantoprazole 40mg IV BID This is similar to prior occasions and only once required blood transfusion in 2019 (4) Hypertensive urgency: Plan: Due to unable to take his usual oral medications, usually resolves when able to take oral Hydralazine q4h 10mg IV for sBP > 180, Labetalol q4h 10mg IV PRN for sBP > 180 can now restart home po meds as is tolerating po-continue amlodipine, carvedilol, losartan, po hydralazine, and minoxidil (5) ESRD (end stage renal disease): Plan: Dialysis M/W/Fr Does not produce urine On renal transplant list Consulted nephrology, appreciate their insight (6) Hypertension: Plan: as above, now resolved hypertensive urgency (7) 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, with long-term current use of insulin: Plan: Glucose 772 on admission Insulin drip per DKA protocol Last A1c 7.9% on 12/01/2022 Pharmacy glycemic consult (8) Elevated troponin: Plan: Elevated troponin 20.7 --> 22.4 Continuous telemetry monitoring-no arrhythmias (9) Diabetic gastroparesis: Plan: long standing (10) Metabolic alkalosis: Plan: Suspected due to vomiting, now improving (11) Anemia of chronic disease: Plan: hgb 9.5, normocytic previous B12 and folate both low a couple months ago not on B12 or folate as outpt on med list check levels in AM and replace as needed epogen ordered by Nephro, iron as needed Plan VTE Prophyalxis - deferred pending gastric occult blood due to "coffee ground comiting" Disposition -continued stay on PCU telemetry Admission and Anticipated Discharge Date Admission Date: March 14, 2023 Subjective Pt feeling better when seen this AM. Is no longer nauseated and ready to try clear liquids for lunch. No abd pain. Is moving bowels. No CP, SOB. I discussed his care with Nephrology and Pharmacist for glycemic control Tele with NSR rates 70-80s Physical Exam Constitutional: WD/WN, vitals as above Neck: trachea midline, no thyromegaly Respiratory: normal respiratory effort, lungs clear to auscultation Cardiovascular: RRR, no murmur, no edema Chest (Breasts): Chest: normal inspection of chest Gastrointestinal (Abdomen): normal bowel sounds, soft, nontender, no hepatosplenomegaly Musculoskeletal: Extremities: extremities normal to inspection; no cyanosis and no clubbing Skin: no rashes, warm and dry Neurologic: moves all extremities and awake; no focal motor deficits Psychiatric: A+Ox3, euthymic affect Lymphatic: no lymphedema Results & Data Results & Data Vital Signs (Past 12 Hours) Vital Signs Temp Pulse Resp BP Pulse Ox O2 Del Method O2 Flow Rate 03/15/23 11:10 36.8 C 87 19 178/66 H 96 Nasal Cannula 1 03/15/23 07:00 37.2 C 81 18 174/70 H 95 Room Air 03/15/23 03:00 36.7 C 80 16 173/70 H 97 Room Air Laboratory Results CBC,CMP, lactate, pH, troponin reviewed PG Care Time/CCT Total # of Minutes Spent Total Time Spent with Patient: Total time spent is greater than 50% in coordination of care (as documented) at patient's floor/unit and/or counseling patient: Coding Level of Care Code 07256 SUB INP/OBS CARE 3/50MIN Diagnoses Cyclical vomiting syndrome R11.15 DKA (diabetic ketoacidosis) E11.10 Coffee ground vomiting K92.0 Hypertensive urgency I16.0 ESRD (end stage renal disease) N18.6 Hypertension I10 Hypertension type: unspecified 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
[2023-03-15 11:59] LABS: BUN Creatinine Ratio 7.5 (10-20); Calcium 8.1 mg/dl (8.6-10.3); Creatinine Clr Calc Pharmacy 10.8 ml/min; Est GFR (African American) 9.3 ml/min; Est GFR (Non-African American) 8.1 ml/min; Phosphorus 4.7 mg/dl (2.5-4.9); Potassium 3.5 mmol/L (3.5-5.1)
--- NOTE | 2023-03-15 12:34 | Nephrology Consultation ---
Date of Consultation March 15, 2023 Assessment & Plan (1) ESRD (end stage renal disease): Already on dialysis Thursday through AV fistula. Does not appear to be volume overloaded at this time and his next dialysis will be tomorrow. We will do him a for 3 hours 30-minute on a 3K bath and take about 2 kilo off (2) DKA (diabetic ketoacidosis): Glucose significantly better and now he is not on insulin drip. Anion gap is almost normal bicarb is28. He has a very complicated mixed acid- base picture. (3) Cyclical vomiting syndrome: As per primary team. Unfortunately he has had this problem for a long time causing numerous hospital admission History of Present Illness Reason for Consultation: Dialysis patient admitted with intractable nausea vomiting and DKA Attending Physician: Mireille Ponce MD History of Present Illness 52-year-old male with ESRD on dialysis Thursday at [facility] with Dr. Lor Guadalupe, T1DM, very severe diabetic gastroparesis with numerous admission in the past for intractable nausea and vomiting episodes usually leading to DKA. He presents via EMS for intractable N/V/D yesterday. Was found to have DKA and received about 500 mL of IV fluid as well as insulin drip. Coffee-ground emesis. His last dialysis was on Thursday. He does not produce any urine. At this time he feels his nausea vomiting is 75% better. Glucose is significantly better and insulin drip has not been stopped. He does report feeling lightheaded. His supine blood pressure is usually high but he does have orthostatic component Review of system----positive for nausea vomiting lightheaded. Otherwise 12 system reviewed and negative Allergies Allergy/AdvReac Type Severity Reaction Status Date / Time shellfish derived Allergy Severe anaphylaxis Verified 03/11/23 15:58 codeine Allergy Intermediate Hives Verified 03/11/23 15:58 promethazine Allergy Intermediate itchy/hives Verified 03/11/23 15:58 Home Medications Medication Instructions Recorded Confirmed Type acetaminophen 325 mg capsule 650 mg PO Q4H PRN Pain (Scale 09/28/20 03/14/23 History Score 1-3) lorazepam 0.5 mg tablet 0.5 mg PO Q6H PRN Anxiety #60 tabs 03/27/21 03/14/23 Rx insulin aspart U-100 100 unit/mL 5 unit (0.05 mL) subcut TIDM PRN 10/24/21 03/14/23 Rx (3 mL) subcutaneous pen (Novolog sliding scale #15 mL FlexPen U-100 Insulin aspart) cholecalciferol (vitamin D3) 50 50 mcg PO QAM 10/25/21 03/14/23 History mcg (2,000 unit) capsule (Vitamin D3) sertraline 100 mg tablet 100 mg PO QAM 12/29/21 03/14/23 History sertraline 25 mg tablet 25 mg PO QAM 12/29/21 03/14/23 History sucroferric oxyhydroxide 500 mg 1,000 mg PO TIDM 12/29/21 03/14/23 History chewable tablet (Velphoro) amlodipine 10 mg tablet 10 mg PO QAM 03/01/22 03/14/23 History losartan 100 mg tablet 100 mg PO QAM #90 tabs 06/05/22 03/14/23 Rx pantoprazole 40 mg tablet,delayed 40 mg PO BIDM 07/20/22 03/14/23 History release atorvastatin 10 mg tablet 10 mg PO QAM #90 tabs 08/11/22 03/14/23 Rx ondansetron HCl 4 mg tablet 8 mg PO Q4 PRN nausea or vomiting 08/14/22 03/14/23 Rx #60 tabs melatonin 1 mg tablet 4 mg PO HS PRN Sleep 09/18/22 03/14/23 History pen needle, diabetic 31 gauge x #500 ea 12/08/22 03/14/23 Rx 5/16" (Comfort EZ Pen [place]) insulin glargine 100 unit/mL (3 17 unit (0.17 mL) subcut QAM #15 mL 12/16/22 03/14/23 Rx mL) subcutaneous pen (Basaglar KwikPen U-100 Insulin) carvedilol 25 mg tablet 25 mg PO BID 02/19/23 03/14/23 History hydralazine 50 mg tablet 50 mg PO TID 02/19/23 03/14/23 History midodrine 5 mg tablet 5 mg PO .COMPLEX 02/19/23 03/14/23 History mirtazapine 7.5 mg tablet 7.5 mg PO HS 02/19/23 03/14/23 History insulin regular human 100 unit/mL 30 unit (0.3 mL) subcut DAILY #15 02/20/23 03/14/23 Rx (3 mL) subcutaneous pen (Novolin R mL FlexPen) minoxidil 2.5 mg tablet 5 mg PO DAILY 03/14/23 03/14/23 History Patient History Medical History Anemia of chronic disease Anxiety AV fistula left upper arm CAD (coronary artery disease) mild, non-obstructive CAD per 10/2018 cardiac cath> [facility] Chronic pleural effusion PleurX catheter placed 01/24/21--removed 07/2021 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 Lor Guadalupe; [facility]) GERD (gastroesophageal reflux disease) History of nephrolithiasis History of pulmonary embolism 11/2020; unk etiology; was on warfarin (taken off 05/2021) Hypertension Hypertensive emergency Hypertensive urgency Junctional rhythm Kidney stone on right side Lumbar radiculopathy Musculoskeletal chest pain Nausea & vomiting Palliative care encounter Personal history of diabetic foot ulcer Urolithiasis Surgical History H/O shoulder surgery RIGHT History of appendectomy History of cardiac cath 10/2018= no stents, no obstructive disease (at [facility]) History of cataract surgery History of esophagogastroduodenoscopy (EGD) (~03/08/20) History of hip surgery left HIP ARTHROSCOPY History of lithotripsy History of open reduction and internal fixation (ORIF) procedure right hip Nausea and vomiting after administration of anesthetic agent S/P arteriovenous (AV) fistula creation Family History Grandfather Myocardial infarction Grandfather (Maternal) Family history of diabetes mellitus Uncle Myocardial infarction Father Hypertension Mother Kidney stone Other No family history of adverse response to anesthesia Denies family history of Colon cancer Ovarian cancer Prostate cancer Breast cancer Social History Smoking Status: Never smoker Tobacco Type: Smokeless Tobacco (Dip or Chew) Second Hand Exposure: No; Do You Dip or Chew Tobacco: No (quit 2019); Hx Alcohol Use: No Hx Substance Use: No Preferred Language: Mongolian Communication Ability: Effective Visual Impairment: No Limitations Hearing Ability: Normal Manager Paper Required: No Beliefs That Will Affect Care: None marital status: Current Living Situation: Family Current Living Situation Comment: single story home with parents current occupational status: disabled How many Children do You have: 2 Other Information That Helps Us Care for You: No Feels Safe at Home: Yes Safety Concerns: Feels Safe At This Time Childhood Exposure to Second-Hand Smoke: Yes Dental Care, Regularly: No Physical Activity Frequency: 1-2 Times per Week Seatbelt Use: always Sunscreen Use: No Gender Identity: Male Assistive Devices: Denture - Upper and Hearing Aid - Bilateral Physical Exam Physical Exam: Awake alert oriented times. No respiratory distress. Constitutional: Mucous membrane is moist neck is supple no JVD Respiratory: Bilateral clear to auscultation Cardiovascular: S1 and S2 regular soft systolic murmur heard. Gastrointestinal (Abdomen): Soft nontender Skin: No rash noted Results & Data Vital Signs (Past 12 Hours) Vital Signs Temp Pulse Resp BP Pulse Ox O2 Del Method O2 Flow Rate 03/15/23 11:10 36.8 C 87 19 178/66 H 96 Nasal Cannula 1 03/15/23 07:00 37.2 C 81 18 174/70 H 95 Room Air 03/15/23 03:00 36.7 C 80 16 173/70 H 97 Room Air Laboratory Results Reviewed in detail Diagnostic Findings Reviewed in detail
--- NOTE | 2023-03-15 14:46 | Pharmacy Report ---
Pharmacy Glycemic Short Note 2 - Date of Service March 15, 2023 - Glycemic Short BSG Results (Last 24 hours): 03/14/23 03/14/23 03/14/23 16:14 17:31 18:33 Glucose POC Glucose 512 H* 408 H* 314 H* 03/14/23 03/14/23 03/14/23 19:28 19:40 21:30 Glucose 250 H POC Glucose 223 H 123 H 03/14/23 03/14/23 03/14/23 22:00 22:31 22:55 Glucose POC Glucose 95 108 H 111 H 03/14/23 03/14/23 03/15/23 23:08 23:42 00:57 Glucose 113 H POC Glucose 131 H 124 H 03/15/23 03/15/23 03/15/23 02:18 02:48 03:11 Glucose POC Glucose 114 H 104 H 108 H 03/15/23 03/15/23 03/15/23 03:33 03:51 03:52 Glucose 118 H POC Glucose 112 H 118 H 03/15/23 03/15/23 03/15/23 04:30 05:38 06:46 Glucose POC Glucose 146 H 159 H 151 H 03/15/23 03/15/23 03/15/23 07:43 08:06 09:04 Glucose 152 H POC Glucose 150 H 169 H 03/15/23 03/15/23 03/15/23 10:16 11:04 11:13 Glucose 152 H POC Glucose 182 H 141 H 03/15/23 03/15/23 03/15/23 11:36 12:45 13:01 Glucose POC Glucose 144 H 159 H 195 H 03/15/23 14:04 Glucose POC Glucose 198 H OUTPATIENT ANTIDIABETIC REGIMEN: * Basaglar 17 units SC qAM * Novolog TIDM per sliding scale (CF of 40 and carb ratio of 8) * Patient's A1c = 7.9% (12/01/22) * However, this result is likely somewhat unreliable in ESRD patients d/t interactions between the A1c analyzing technique and high levels of urea in ESRD, reduced RBC life span, iron deficiency anemia, and EPO administration. HbA1c > 7.5% in ESRD patient may overestimate the extent of hyperglycemia in ESRD patients. ASSESSMENT: * GERBER is a 52 year old male w/ T1DM and ESRD on HD, well known to pharmacy glycemic service * Presented to ED on 03/14/23 w/ severe nausea and vomiting * Initial concern for DKA based on anion gap, although serum bicarbonate was WNL and VBG pH indicative of metabolic alkalosis * More likely hyperglycemia/mild HHS * Insulin infusion initiated last evening w/ addition of D10W in order to keep insulin gtt infusing * Diet started today with lunch, D10W discontinued, will attempt transition to SC basal/bolus regimen today * Will give ~80% of home basal dose today given uncertainty in PO intake today PLAN FOR INPATIENT GLYCEMIC CONTROL: * Insulin infusion to infuse until ~1630 * Basal insulin * Lantus 14 units SQ x 1 * Bolus insulin * NovoLog per scale ACHS or Q6hrs while NPO * Goal Range: Low 120 mg/dL - High 150 mg/dL * Correction Factor: 40 mg/dL/unit * Nutritional / Prandial insulin per carb ratio of 1 unit per 12 grams CHO consumed
[2023-03-15] MEDS ORDERED: DC IV INSULIN INFUSION 1 EA DEVI ONE (16:30)
[2023-03-15] MEDS: LORazepam 2 MG/1 ML VIAL IV PRN (20:14)
[2023-03-15] MEDS ORDERED: ACETAMINOPHEN 500 MG TAB PO PRN (20:19)
[2023-03-15] MEDS ORDERED: DEXTROSE 10% 1,000 ML IV SCH (21:00)
[2023-03-15] MEDS: MIRTAZAPINE TAB 15 MG TAB PO SCH (21:20)
[2023-03-15 21:25] LABS: Basophils # (auto) 0.04 K/uL (0.00-0.20); Basophils % (auto) 0.3 %; Eosinophils # (auto) 0.15 K/uL (0.00-0.50); Eosinophils % (auto) 1.2 %; Hematocrit (blood only) 28.3 % (42.0-52.0); Hemoglobin 9.7 g/dl (14.0-18.0); Immature Granulocytes # (auto) 0.05 K/uL (0.01-0.20); Immature Granulocytes % (auto) 0.4 %; Lymphocytes # (auto) 2.06 K/uL (1.20-3.40); Lymphocytes % (auto) 16.3 %; Mean Corpuscular Hemoglobin 32.8 pg (25.0-34.0); Mean Corpuscular Hgb Conc 34.3 g/dL (32.0-36.0); Mean Corpuscular Volume 95.6 fL (80.0-100.0); Monocytes # (auto) 0.82 K/uL (0.11-0.59); Monocytes % (auto) 6.5 %; Neutrophils % (auto) 75.3 %; Platelet Count 293 K/uL (130-400); RDW Coefficient of Variation 13.4 % (11.5-14.5); RDW Standard Deviation 46.9 fL (36.4-46.3); Red Blood Count 2.96 M/uL (4.70-6.10); White Blood Count 12.62 K/ul (4.8-10.8)
[2023-03-15 21:39] LABS: Albumin Globulin Ratio 1.6 (0.9-2); Albumin Level 3.6 gm/dl (3.4-5.0); Bilirubin,Total 0.7 mg/dl (0.2-1.0); Calcium 8.2 mg/dl (8.6-10.3); Creatinine Clr Calc Pharmacy 9.6 ml/min; Est GFR (African American) 8.1 ml/min; Globulin 2.3 gm/dl (2.5-4.0); Potassium 3.8 mmol/L (3.5-5.1); Total Protein 5.9 gm/dl (6.0-8.3)
--- NOTE | 2023-03-15 22:22 | CT Scan Report ---
Exam(s): CT HEAD Without Contrast EXAM: CT Head Without Intravenous Contrast CLINICAL HISTORY: Reason for exam: ams. TECHNIQUE: Axial computed tomography images of the head/brain without intravenous contrast. Automated exposure control was utilized for the study. A dose lowering technique was utilized adhering to the principles of ALARA. COMPARISON: Head CT 07/20/22. FINDINGS: Brain: No mass effect or acute infarct. No acute hemorrhage. No abnormal density in the brain parenchyma. Mild atrophy, commensurate with age. Ventricles: No hydrocephalus or midline shift. Bones/joints: No skull fracture. Soft tissues: No scalp hematoma. Sinuses: Clear. Mastoid air cells: No mastoid effusion. IMPRESSION: 1. No acute infarct, bleed, or acute intracranial abnormality. Communications: Call Doctor Stroke Electronically signed by: Merle Hallman M.D. 03/15/23 22:21 PM
--- NOTE | 2023-03-15 22:42 | Communication Note ---
Date of Service: March 15, 2023 Stroke alert called on patient.Per nursing noted new onset facial droop altered mental status. Noted BSG 51. Patient was able to drink a cup of juice, confusion symptoms improved patient able to answer questions appropriately AAOx3. BSG continued to be in the 50's after 2 glucose tabs. Ordered CBC CMP lactate CT head. Symptoms likely from hypoglycemia, stroke alert canceled. Started patient on D10 100mls/h. Ordered BSG checks q1h. BSG improved to 181, no anion gap noted CT head negative. D10 decreased to 50mls/h.
[2023-03-16] MEDS ORDERED: INSULIN ASPART PER UNIT CHARGE SC SCH (02:00)
[2023-03-16] MEDS ORDERED: EPOETIN ALFA 4,000 UNIT/ML VIAL IV ONE (07:00)
[2023-03-16] MEDS ORDERED: SODIUM CHLORIDE 0.9% 1,000 ML IV PRN (07:00)
[2023-03-16] MEDS: ATORVASTATIN 10 MG TAB PO SCH (08:00)
[2023-03-16] MEDS: PANTOprazole 40 MG in SYRINGE 0 ML IV SCH ×2 (08:00→21:31)
[2023-03-16] MEDS ORDERED: LANTUS PER UNIT CHARGE SC ONE (08:00)
[2023-03-16] MEDS: SERTRALINE HCL 50 MG TABLET PO SCH (08:00)
[2023-03-16] MEDS: SERTRALINE HCL 100 MG TABLET PO SCH (08:00)
[2023-03-16] MEDS: CHOLECALCIFEROL 1,000 UNITS 25 MCG TAB PO SCH (08:00)
[2023-03-16] MEDS: INSULIN ASPART PER UNIT CHARGE SC SCH ×4 (08:23→20:44)
[2023-03-16 08:42] LABS: Folate (Folic Acid),Ser orPlas 8.12 ng/ml (>5.38)
[2023-03-16 09:07] LABS: Basophils # (auto) 0.03 K/uL (0.00-0.20); Basophils % (auto) 0.3 %; Eosinophils # (auto) 0.12 K/uL (0.00-0.50); Eosinophils % (auto) 1.3 %; Hematocrit (blood only) 27.5 % (42.0-52.0); Hemoglobin 9.2 g/dl (14.0-18.0); Immature Granulocytes # (auto) 0.04 K/uL (0.01-0.20); Immature Granulocytes % (auto) 0.4 %; Lymphocytes # (auto) 1.46 K/uL (1.20-3.40); Lymphocytes % (auto) 15.6 %; Mean Corpuscular Hemoglobin 32.2 pg (25.0-34.0); Mean Corpuscular Hgb Conc 33.5 g/dL (32.0-36.0); Mean Corpuscular Volume 96.2 fL (80.0-100.0); Monocytes % (auto) 7.5 %; Neutrophils # (auto) 6.99 K/uL (1.40-6.50); Neutrophils % (auto) 74.9 %; Platelet Count 243 K/uL (130-400); RDW Coefficient of Variation 13.3 % (11.5-14.5); RDW Standard Deviation 46.9 fL (36.4-46.3); Red Blood Count 2.86 M/uL (4.70-6.10); White Blood Count 9.34 K/ul (4.8-10.8)
[2023-03-16 09:27] LABS: Calcium 7.5 mg/dl (8.6-10.3); Est GFR (African American) 7.4 ml/min; Est GFR (Non-African American) 6.4 ml/min; Potassium 4.2 mmol/L (3.5-5.1)
--- NOTE | 2023-03-16 14:06 | Pharmacy Report ---
Pharmacy Glycemic Short Note 2 - Date of Service March 16, 2023 - Glycemic Short BSG Results (Last 24 hours): 03/15/23 03/15/23 03/15/23 14:04 15:01 17:06 Glucose POC Glucose 198 H 181 H 111 H 03/15/23 03/15/23 03/15/23 20:20 20:38 20:48 Glucose POC Glucose 65 L* 56 L* 52 L* 03/15/23 03/15/23 03/15/23 20:59 21:00 21:22 Glucose 51 L* POC Glucose 60 L* 163 H 03/15/23 03/15/23 03/16/23 22:20 23:20 00:35 Glucose POC Glucose 181 H 244 H 292 H 03/16/23 03/16/23 03/16/23 03:30 04:59 07:03 Glucose POC Glucose 285 H 266 H 278 H 03/16/23 03/16/23 08:45 13:35 Glucose 287 H POC Glucose 75 OUTPATIENT ANTIDIABETIC REGIMEN: * Basaglar 17 units SC qAM * Novolog TIDM per sliding scale (CF of 40 and carb ratio of 8) * Patient's A1c = 7.9% (12/01/22) * However, this result is likely somewhat unreliable in ESRD patients d/t interactions between the A1c analyzing technique and high levels of urea in ESRD, reduced RBC life span, iron deficiency anemia, and EPO administration. HbA1c > 7.5% in ESRD patient may overestimate the extent of hyperglycemia in ESRD patients. ASSESSMENT: 03/16/23: * Patient transitioned to SC basal/bolus regimen yesterday * Unfortunately, patient experienced significant hypoglycemic event last evening where patient experienced facial droop and altered mental status (BSG of 51). Stroke alert called at that time, but ultimately canceled and believed to be from hypoglycemia. D10W was started last evening during this time, but ultimately stopped once BSGs responded. * Will loosen Novolog goal range and parameters * Patient requested tray after HD, discussed with RN and will hold Novolog with this meal 03/15/23: * GERBER is a 52 year old male w/ T1DM and ESRD on HD, well known to pharmacy g lycemic service * Presented to ED on 03/14/23 w/ severe nausea and vomiting * Initial concern for DKA based on anion gap, although serum bicarbonate was WNL and VBG pH indicative of metabolic alkalosis * More likely hyperglycemia/mild HHS * Insulin infusion initiated last evening w/ addition of D10W in order to keep insulin gtt infusing * Diet started today with lunch, D10W discontinued, will attempt transition to SC basal/bolus regimen today * Will give ~80% of home basal dose today given uncertainty in PO intake today PLAN FOR INPATIENT GLYCEMIC CONTROL: * Basal insulin * Lantus 16 units SC x 1 * Reassess in AM * Bolus insulin * NovoLog per scale ACHS or Q6hrs while NPO * Goal Range: Low 140 mg/dL - High 180 mg/dL * Correction Factor: 45 mg/dL/unit * Nutritional / Prandial insulin per carb ratio of 1 unit per 15 grams CHO consumed
[2023-03-16] MEDS: carvediloL 25 MG TAB PO SCH ×2 (14:54→17:40)
[2023-03-16] MEDS: minoxidiL 2.5 MG TAB PO SCH (15:14)
[2023-03-16] MEDS: amLODIPine BESYLATE 5 MG TAB PO SCH (15:14)
[2023-03-16] MEDS: hydrALAZINE TAB 50 MG TAB PO SCH ×4 (15:15→22:00)
[2023-03-16] MEDS: LOSARTAN POTASSIUM 50 MG TAB PO SCH (15:15)
--- NOTE | 2023-03-16 19:10 | Dialysis Progress Note ---
Date of Service March 16, 2023 Assessment & Plan (1) ESRD (end stage renal disease): Plan: On dialysis Thursday through AV fistula. Does not appear to be volume overloaded at this time nor does he usually >tolerated 3h30m tx today and had 1.7 L off w/ 2 L goal originally >has midodrine prn hypotension on HD >next HD on 03/18 pending clinical status >hyponatremia noted and in anuric dialysis pts like him is a marker of volume overload; affected also by elevated BG (2) DKA (diabetic ketoacidosis): Plan: resolved. Anion gap is almost normal; bicarb is 27. He has a very complicated mixed acid- base picture. (3) Cyclical vomiting syndrome: Plan: As per primary team. Unfortunately he has had this problem for a long time causing numerous hospital admissions Admission and Anticipated Discharge Date Admission Date: March 14, 2023 Subjective seen on HD at about 1120. no sob, feels N/v well controlled currently; no cough; denies pain or cramping Review of Systems Review of Systems: All systems reviewed & are unremarkable except as noted in Subjective Physical Exam Constitutional: well developed and + thin; no acute distress Eyes: EOM intact bilaterally ENMT: Ears: no external ear abnormality Nose: no external nose abnormality Mouth: + dry oral mucous membranes Neck: no nuchal rigidity Respiratory: normal respiratory effort Auscultation: + diminished lung sounds Cardiovascular: RRR, no murmur, no edema Extremities: + AV fistula Gastrointestinal (Abdomen): Inspection/Auscultation: normal bowel sounds Percussion/Palpation: abdomen soft; abdomen nontender Musculoskeletal: Extremities: strength 5/5 throughout Skin: no rashes, warm and dry Neurologic: spicer, fluent speech, no tremor Results & Data Vital Signs (Past 12 Hours) Vital Signs Temp Pulse Pulse Pulse Resp BP BP 03/16/23 16:00 75 03/16/23 15:00 36.6 C 75 18 128/60 03/16/23 12:30 70 110/44 L 03/16/23 13:15 36.7 C 74 153/66 H 03/16/23 13:37 36.8 C 78 19 151/73 H 03/16/23 08:00 70 03/16/23 12:00 68 98/37 L 03/16/23 11:30 68 139/58 L 03/16/23 11:00 70 111/38 L 03/16/23 10:30 70 88/41 L 03/16/23 10:00 70 95/44 L 03/16/23 09:30 68 89/54 L 03/16/23 09:27 68 115/48 L 03/16/23 09:19 36.5 C 83 03/16/23 07:12 36.7 C 70 19 109/58 L Pulse Ox O2 Del Method 03/16/23 16:00 03/16/23 15:00 5 L Room Air 03/16/23 12:30 03/16/23 13:15 03/16/23 13:37 97 Room Air 03/16/23 08:00 03/16/23 12:00 03/16/23 11:30 03/16/23 11:00 03/16/23 10:30 03/16/23 10:00 03/16/23 09:30 03/16/23 09:27 03/16/23 09:19 03/16/23 07:12 95 Room Air Laboratory Results 03/16/23 08:45 03/16/23 08:45
--- NOTE | 2023-03-16 19:37 | Hospitalist Progress Note ---
Date of Service March 16, 2023 Assessment & Plan (1) Cyclical vomiting syndrome: Plan: N/V/D since 0430 on 03/14 EKG sinus rhythm with first-degree AV block Hyponatremia 123 (corrected to 134 based on hyperglycemia at 772) upon admission Lactate 3.4 --> 3.1 and then normalized VBG pH at 7.54 --> 7.47; combined metabolic alkalosis along with metabolic acidosis-complicated acid-base picture given anuria and renal failure Anion gap at 17 on admission suggestive of DKA with combined metabolic alkalosis 500 mL NSS given in the ED-Caution fluid overload with ESRD patient Caution Zofran QTc 522; allergy to promethazine (2nd line) Patient reports he has done well on benzos and Benadryl for nausea in the past Nausea/vomiting now improved and tolerating regular diet with small meals for gastroparesis He has used Reglan in the past but will avoid right now due to QT prolongation continue lorazepam IV 0.5 mg as needed Pantoprazole 40 mg IV twice daily (2) DKA (diabetic ketoacidosis): Plan: DKA order set except for IV fluids given he does not get osmotic diuresis given lack of urine production, need to replace vomiting/sweating losses only Insulin IV drip per DKA protocol used and now weaning off, started Lantus and Novolog although he now uses regular insulin as outpt Ketoacidosis present given elevated anion gap however offset by concurrent metabolic alkalosis presumably from vomiting Resolved, advance diet to diabetic diet Likely precipitated by N/V from gastroparesis and subsequent lack of use of regular insulin Appreciate pharmacy consultation (3) Coffee ground vomiting: Plan: Gastric occult blood pending, none further since admission Fecal occult positive hgb stable from previous at 9.2 continue Pantoprazole 40mg IV BID and convert to p.o. tomorrow This is similar to prior occasions and only once required blood transfusion in 2019 (4) Hypertensive urgency: Plan: Due to unable to take his usual oral medications, usually resolves when able to take oral Hydralazine q4h 10mg IV for sBP > 180, Labetalol q4h 10mg IV PRN for sBP > 180 can now restart home po meds as is tolerating po-continue amlodipine, carvedilol, losartan, po hydralazine, and minoxidil Midodrine as needed for low blood pressures with dialysis (5) ESRD (end stage renal disease): Plan: Dialysis M/W/Fr Does not produce urine On renal transplant list Consulted nephrology, appreciate their insight (6) Hypertension: Plan: as above, now resolved hypertensive urgency (7) 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, with long-term current use of insulin: Plan: Glucose 772 on admission Insulin drip per DKA protocol Last A1c 7.9% on 12/01/2022 Pharmacy glycemic consult Follows with endocrinology (8) Elevated troponin: Plan: Elevated troponin 20.7 --> 22.4 Continuous telemetry monitoring-no arrhythmias (9) Diabetic gastroparesis: Plan: long standing (10) Metabolic alkalosis: Plan: Suspected due to vomiting, now improving (11) Anemia of chronic disease: Plan: hgb 9.2 and stable, normocytic previous B12 and folate both low a couple months ago but are now improved not on B12 or folate as outpt on med list-Ensure taking supplements after discharge epogen ordered by Nephro, iron as needed Plan VTE Prophyalxis - deferred pending gastric occult blood due to "coffee ground comiting" Disposition -continued stay on PCU telemetry but likely discharged home tomorrow Admission and Anticipated Discharge Date Admission Date: March 14, 2023 Subjective Feeling much better. No further nausea vomiting and diet was advanced today and he is tolerating well. No pain anywhere. Tolerated dialysis. Telemetry with normal sinus rhythm first-degree AV block, rates in the 60s Physical Exam Constitutional: WD/WN, vitals as above Neck: trachea midline, no thyromegaly Respiratory: normal respiratory effort, lungs clear to auscultation Cardiovascular: RRR, no murmur, no edema Chest (Breasts): Chest: normal inspection of chest Gastrointestinal (Abdomen): normal bowel sounds, soft, nontender, no hepatosplenomegaly Musculoskeletal: Extremities: extremities normal to inspection; no cyanosis and no clubbing Skin: no rashes, warm and dry Neurologic: moves all extremities and awake; no focal motor deficits Psychiatric: A+Ox3, euthymic affect Lymphatic: no lymphedema Results & Data Results & Data Vital Signs (Past 12 Hours) Vital Signs Temp Pulse Pulse Resp BP BP Pulse Ox 03/16/23 16:00 75 03/16/23 15:00 36.6 C 75 18 128/60 5 L 03/16/23 12:30 70 110/44 L 03/16/23 13:15 36.7 C 74 153/66 H 03/16/23 13:37 36.8 C 78 19 151/73 H 97 03/16/23 08:00 70 03/16/23 12:00 68 98/37 L 03/16/23 11:30 68 139/58 L 03/16/23 11:00 70 111/38 L 03/16/23 10:30 70 88/41 L 03/16/23 10:00 70 95/44 L 03/16/23 09:30 68 89/54 L 03/16/23 09:27 68 115/48 L 03/16/23 09:19 36.5 C 83 O2 Del Method 03/16/23 16:00 03/16/23 15:00 Room Air 03/16/23 12:30 03/16/23 13:15 03/16/23 13:37 Room Air 03/16/23 08:00 03/16/23 12:00 03/16/23 11:30 03/16/23 11:00 03/16/23 10:30 03/16/23 10:00 03/16/23 09:30 03/16/23 09:27 03/16/23 09:19 Laboratory Results CBC, BMP, magnesium, phosphorus, B12 and folate reviewed CT head reviewed Fecal occult reviewed PG Care Time/CCT Total # of Minutes Spent Total Time Spent with Patient: Total time spent is greater than 50% in coordination of care (as documented) at patient's floor/unit and/or counseling patient: Coding Level of Care Code 27881 SUB INP/OBS CARE 3/50MIN Diagnoses Cyclical vomiting syndrome R11.15 DKA (diabetic ketoacidosis) E11.10 Coffee ground vomiting K92.0 Hypertensive urgency I16.0 ESRD (end stage renal disease) N18.6 Hypertension I10 Hypertension type: unspecified 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
[2023-03-16] MEDS ORDERED: diphenhydrAMINE 50 MG/ML VIAL IV STA (21:03)
[2023-03-16] MEDS: MIRTAZAPINE TAB 15 MG TAB PO SCH (22:00)
[2023-03-16] MEDS: LORazepam 2 MG/1 ML VIAL IV PRN (22:36)
[2023-03-17] MEDS: carvediloL 25 MG TAB PO SCH ×2 (08:12→18:14)
[2023-03-17] MEDS: amLODIPine BESYLATE 5 MG TAB PO SCH (08:12)
[2023-03-17] MEDS: SERTRALINE HCL 100 MG TABLET PO SCH (08:13)
[2023-03-17] MEDS: minoxidiL 2.5 MG TAB PO SCH (08:13)
[2023-03-17] MEDS: CHOLECALCIFEROL 1,000 UNITS 25 MCG TAB PO SCH (08:14)
[2023-03-17] MEDS: hydrALAZINE TAB 50 MG TAB PO SCH ×2 (08:14→14:35)
[2023-03-17] MEDS: ATORVASTATIN 10 MG TAB PO SCH (08:14)
[2023-03-17] MEDS: LOSARTAN POTASSIUM 50 MG TAB PO SCH (08:14)
[2023-03-17] MEDS: PANTOprazole 40 MG in SYRINGE 0 ML IV SCH (08:15)
[2023-03-17 08:16] LABS: BUN Creatinine Ratio 5.1 (10-20); Calcium 7.9 mg/dl (8.6-10.3); Creatinine Clr Calc Pharmacy 13.9 ml/min; Est GFR (African American) 12.9 ml/min; Est GFR (Non-African American) 11.1 ml/min; Phosphorus 4.1 mg/dl (2.5-4.9); Potassium 4.2 mmol/L (3.5-5.1)
[2023-03-17] MEDS: SERTRALINE HCL 50 MG TABLET PO SCH (08:16)
[2023-03-17] MEDS: INSULIN ASPART PER UNIT CHARGE SC SCH ×3 (08:20→16:52)
[2023-03-17] MEDS ORDERED: CYANOCOBALAMIN 1000 MCG/ML VIAL IM ONE (08:35)
[2023-03-17] MEDS ORDERED: FOLIC ACID 1 MG TAB PO SCH (09:00)
[2023-03-17] MEDS ORDERED: LANTUS PER UNIT CHARGE SC SCH (09:00)
--- NOTE | 2023-03-17 13:27 | Pharmacy Report ---
Pharmacy Glycemic Short Note 2 - Date of Service March 17, 2023 - Glycemic Short BSG Results (Last 24 hours): 03/16/23 03/16/23 03/16/23 13:35 16:39 20:24 Glucose POC Glucose 75 111 H 145 H 03/17/23 03/17/23 03/17/23 07:09 07:42 11:26 Glucose 94 POC Glucose 87 208 H OUTPATIENT ANTIDIABETIC REGIMEN: * Basaglar 17 units SC qAM * Novolog TIDM per sliding scale (CF of 40 and carb ratio of 8) * Patient's A1c = 7.9% (12/01/22) * However, this result is likely somewhat unreliable in ESRD patients d/t interactions between the A1c analyzing technique and high levels of urea in ESRD, reduced RBC life span, iron deficiency anemia, and EPO administration. HbA1c > 7.5% in ESRD patient may overestimate the extent of hyperglycemia in ESRD patients. ASSESSMENT: 03/17/23: * Ivan received 19 units of insulin yesterday (16 units Lantus + 3 units Novolog) * Fasting BSG of 87 mg/dL today. Will decrease Lantus dose. * Lunch BSG jumped to 208 mg/dL. Of note, patient did consume a small amount of carbs with breakfast (15 g) which were not covered due to fasting BSG below goal. Will slightly tighten correction factor and lower goal range. Hesitant to make significant change since patient's BSGs were mostly below goal yesterday even with little bolus insulin administered. 03/16/23: * Patient transitioned to SC basal/bolus regimen yesterday * Unfortunately, patient experienced significant hypoglycemic event last evening where patient experienced facial droop and altered mental status (BSG of 51). Stroke alert called at that time, but ultimately canceled and believed to be from hypoglycemia. D10W was started last evening during this time, but ultimately stopped once BSGs responded. * Will loosen Novolog goal range and parameters * Patient requested tray after HD, discussed with RN and will hold Novolog with this meal 03/15/23: * GERBER is a 52 year old male w/ T1DM and ESRD on HD, well known to pharmacy glycemic service * Presented to ED on 03/14/23 w/ severe nausea and vomiting * Initial concern for DKA based on anion gap, although serum bicarbonate was WNL and VBG pH indicative of metabolic alkalosis * More likely hyperglycemia/mild HHS * Insulin infusion initiated last evening w/ addition of D10W in order to keep insulin gtt infusing * Diet started today with lunch, D10W discontinued, will attempt transition to SC basal/bolus regimen today * Will give ~80% of home basal dose today given uncertainty in PO intake today PLAN FOR INPATIENT GLYCEMIC CONTROL: * Basal insulin * Lantus 13 units SC qAM x 1 * Reassess 10/11 AM * Bolus insulin * NovoLog per scale ACHS or Q6hrs while NPO * Goal Range: Low 120 mg/dL - High 160 mg/dL * Correction Factor: 40 mg/dL/unit * Nutritional / Prandial insulin per carb ratio of 1 unit per 15 grams CHO consumed
[2023-03-17 13:40] LABS: Basophils # (auto) 0.05 K/uL (0.00-0.20); Basophils % (auto) 0.7 %; Eosinophils # (auto) 0.07 K/uL (0.00-0.50); Hematocrit (blood only) 30.1 % (42.0-52.0); Hemoglobin 9.8 g/dl (14.0-18.0); Immature Granulocytes # (auto) 0.02 K/uL (0.01-0.20); Immature Granulocytes % (auto) 0.3 %; Lymphocytes # (auto) 1.65 K/uL (1.20-3.40); Lymphocytes % (auto) 23.8 %; Mean Corpuscular Hemoglobin 32.5 pg (25.0-34.0); Mean Corpuscular Hgb Conc 32.6 g/dL (32.0-36.0); Mean Corpuscular Volume 99.7 fL (80.0-100.0); Mean Platelet Volume 10.4 fL (9.4-12.4); Monocytes # (auto) 0.75 K/uL (0.11-0.59); Monocytes % (auto) 10.8 %; Neutrophils # (auto) 4.38 K/uL (1.40-6.50); Neutrophils % (auto) 63.4 %; Platelet Count 233 K/uL (130-400); RDW Coefficient of Variation 13.6 % (11.5-14.5); RDW Standard Deviation 49.4 fL (36.4-46.3); Red Blood Count 3.02 M/uL (4.70-6.10); White Blood Count 6.92 K/ul (4.8-10.8)
--- NOTE | 2023-03-17 16:21 | Discharge Summary ---
Discharge Summary Date of Service March 17, 2023 Notes For Next Care Provider Medication Changes From Visit Vitamin B12 1000 mcg po daily Folic acid 1mg po daily Admission HPI Per Admitting Provider Jorge Alberto De Los Santos is a 52-year-old male with PMH of ESRD on dialysis, T1DM, diabetic gastroparesis, HTN, HLD, GERD, anxiety, depression, and CAD well known to this service with cyclic vomiting episodes usually leading to DKA. He presents via EMS for intractable N/V/D since 429 this morning. Coffee-ground emesis. Dialysis patient M/W/Fr with last session 03/13. He does not produce any urine. Patient denies pain at this time, just generalized weakness and fatigue from nausea/vomiting. No sick contacts. Took morning meds, but vomited them up afterward. He is not tolerating fluids, or solids. Vomited 15min after attempting to eat this morning. This feels similar to all his previously episodes. Patient endorses feeling lightheaded with chills and fatigue. Patient denies fever, sweating, difficulty swallowing, CP, SOB, abdominal pain. ED course: 500mL NSS, insulin, potassium chloride IV, Zofran, labetalol, hydralazine Principal Dx & Hospital Course #1 = Principal Diagnosis (1) Cyclical vomiting syndrome: N/V/D since 429 on 03/14 EKG sinus rhythm with first-degree AV block Hyponatremia 123 (corrected to 134 based on hyperglycemia at 772) upon admission Lactate 3.4 --> 3.1 and then normalized VBG pH at 7.54 --> 7.47; combined metabolic alkalosis along with metabolic acidosis-complicated acid-base picture given anuria and renal failure Anion gap at 17 on admission suggestive of DKA with combined metabolic alkalosis 500 mL NSS given in the ED-Caution fluid overload with ESRD patient Caution Zofran QTc 522; allergy to promethazine (2nd line) Patient reports he has done well on benzos and Benadryl for nausea in the past Nausea/vomiting now resolved and tolerating regular diet with small meals for gastroparesis He has used Reglan in the past but will avoid right now due to QT prolongation Stable for dc to home (2) DKA (diabetic ketoacidosis): Secondary to not taking regular insulin and also by intractable N/V from gastroparesis Was treated with small amount of IVFs and insulin gtt, lyte replacement Ketoacidosis present given elevated anion gap however offset by concurrent metabolic alkalosis presumably from vomiting Resolved Likely precipitated by N/V from gastroparesis and subsequent lack of use of regular insulin Appreciate pharmacy consultation (3) Coffee ground vomiting: Gastric occult blood pending, none further since admission Fecal occult positive hgb stable from previous at 9.8 received Pantoprazole 40mg IV BID and convert to p.o.for discharge This is similar to prior occasions and only once required blood transfusion in 2019 (4) Hypertensive urgency: Due to unable to take his usual oral medications, usually resolves when able to take oral Resolved continue home po meds as is tolerating po-continue amlodipine, carvedilol, losartan, po hydralazine, and minoxidil Midodrine as needed for low blood pressures with dialysis (5) ESRD (end stage renal disease): Dialysis M/W/Fr Does not produce urine On renal transplant list Consulted nephrology, appreciate their insight (6) Hypertension: as above, now resolved hypertensive urgency (7) 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, with long-term current use of insulin: Glucose 772 on admission Insulin drip per DKA protocol and then converted to Lantus and Novolog Had a hypoglycemic episode here overnight that caused alteration in mentation that resolved with drinking juice Last A1c 7.9% on 12/01/2022 Pharmacy glycemic consult Follows with endocrinology (8) Elevated troponin: Elevated troponin 20.7 --> 22.4 Continuous telemetry monitoring-no arrhythmias (9) Diabetic gastroparesis: long standing (10) Metabolic alkalosis: Suspected due to vomiting, now improving (11) Anemia of chronic disease: hgb 9.8 and stable, normocytic previous B12 and folate both low a couple months ago but are now improved/low normal not on B12 or folate as outpt on med list-Ensure taking supplements after discharge gave one dose IM B12 epogen ordered by Nephro, iron as needed Plan VTE Prophyalxis - deferred pending gastric occult blood due to "coffee ground comiting" Disposition -dc to home Discharge Exam Constitutional WD/WN, vitals as above Neck trachea midline, no thyromegaly Respiratory normal respiratory effort, lungs clear to auscultation Cardiovascular RRR, no murmur, no edema Chest (Breasts) Chest: normal inspection of chest Gastrointestinal (Abdomen) normal bowel sounds, soft, nontender, no hepatosplenomegaly Musculoskeletal Extremities: extremities normal to inspection; no cyanosis and no clubbing Skin no rashes, warm and dry Neurologic moves all extremities and awake; no focal motor deficits Psychiatric A+Ox3, euthymic affect Lymphatic no lymphedema Updated Medication List Medication Instructions Recorded Confirmed Type acetaminophen 325 mg capsule 650 mg PO Q4H PRN Pain (Scale 09/28/20 03/14/23 History Score 1-3) lorazepam 0.5 mg tablet 0.5 mg PO Q6H PRN Anxiety #60 tabs 03/27/21 03/14/23 Rx insulin aspart U-100 100 unit/mL 5 unit (0.05 mL) subcut TIDM PRN 10/24/21 03/14/23 Rx (3 mL) subcutaneous pen (Novolog sliding scale #15 mL FlexPen U-100 Insulin aspart) cholecalciferol (vitamin D3) 50 50 mcg PO QAM 10/25/21 03/14/23 History mcg (2,000 unit) capsule (Vitamin D3) sertraline 100 mg tablet 100 mg PO QAM 12/29/21 03/14/23 History sertraline 25 mg tablet 25 mg PO QAM 12/29/21 03/14/23 History sucroferric oxyhydroxide 500 mg 1,000 mg PO TIDM 12/29/21 03/14/23 History chewable tablet (Velphoro) amlodipine 10 mg tablet 10 mg PO QAM 03/01/22 03/14/23 History losartan 100 mg tablet 100 mg PO QAM #90 tabs 06/05/22 03/14/23 Rx pantoprazole 40 mg tablet,delayed 40 mg PO BIDM 07/20/22 03/14/23 History release atorvastatin 10 mg tablet 10 mg PO QAM #90 tabs 08/11/22 03/14/23 Rx ondansetron HCl 4 mg tablet 8 mg PO Q4 PRN nausea or vomiting 08/14/22 03/14/23 Rx #60 tabs melatonin 1 mg tablet 4 mg PO HS PRN Sleep 09/18/22 03/14/23 History pen needle, diabetic 31 gauge x #500 ea 12/08/22 03/14/23 Rx 5/16" (Comfort EZ Pen [place]) insulin glargine 100 unit/mL (3 17 unit (0.17 mL) subcut QAM #15 mL 12/16/22 03/14/23 Rx mL) subcutaneous pen (Basaglar KwikPen U-100 Insulin) carvedilol 25 mg tablet 25 mg PO BID 02/19/23 03/14/23 History hydralazine 50 mg tablet 50 mg PO TID 02/19/23 03/14/23 History midodrine 5 mg tablet 5 mg PO .COMPLEX 02/19/23 03/14/23 History mirtazapine 7.5 mg tablet 7.5 mg PO HS 02/19/23 03/14/23 History insulin regular human 100 unit/mL 30 unit (0.3 mL) subcut DAILY #15 02/20/23 03/14/23 Rx (3 mL) subcutaneous pen (Novolin R mL FlexPen) minoxidil 2.5 mg tablet 5 mg PO DAILY 03/14/23 03/14/23 History cyanocobalamin (vitamin B-12) 1,000 mcg PO DAILY #30 caps 03/17/23 Rx 1,000 mcg capsule folic acid 1 mg tablet 1 mg PO QAM #30 tabs 03/17/23 Rx pantoprazole 40 mg tablet,delayed 40 mg PO QAM #30 tabs 03/17/23 Rx release (Protonix) Hospital Stay Data Consultations 03/14/23 15:58 ED Decision to Admit Stat 03/14/23 16:20 Consult Nephrology Routine Diagnostic Imagining Performed 03/14/23 13:16 CT abd pelvis wo con Stat 03/15/23 20:47 CT head/brain wo con Stat Pending Results Patient Have Any Pending Studies at Discharge: No Discharge Instructions Given to Patient (Per Discharging Provider) You were admitted for a flare up of your gastroparesis which caused you to go into DKA. This resolved with insulin drip and nausea medications. Please resume your usual dosing of insulin as per your Endocrinology recommendations. You also should be taking vitamin B12 and folic acid for your previously low levels of these vitamins. You were started on Protonix as an antacid to relieve you of any inflammation in the stomach from vomiting. 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
--- NOTE | 2023-03-17 16:24 | Nephrology Progress Note ---
Date of Service March 17, 2023 Assessment & Plan (1) ESRD (end stage renal disease): Plan: On dialysis Thursday through AV fistula. Does not appear to be volume overloaded at this time nor does he usually >tolerated 3h30m tx 03/16 and had 1.7 L off w/ 2 L goal originally >has midodrine prn hypotension on HD >next HD on 03/18 as OP >>we will watch his BP levels closely after d/c at dialysis (2) Cyclical vomiting syndrome: Plan: As per primary team. Unfortunately he has had this problem for a long time causing numerous hospital admissions Admission and Anticipated Discharge Date Admission Date: March 14, 2023 Subjective n/v controlled and when I saw him midday he stated was for d/c. some lower bp but asx Review of Systems Review of Systems: All systems reviewed & are unremarkable except as noted in Subjective Physical Exam Constitutional: well developed and + thin; no acute distress Eyes: EOM intact bilaterally ENMT: Ears: no external ear abnormality Nose: no external nose abnormality Mouth: + dry oral mucous membranes Neck: no nuchal rigidity Respiratory: normal respiratory effort Auscultation: + diminished lung sounds Cardiovascular: RRR, no murmur, no edema Extremities: + AV fistula Gastrointestinal (Abdomen): Inspection/Auscultation: normal bowel sounds Percussion/Palpation: abdomen soft; abdomen nontender Musculoskeletal: Extremities: strength 5/5 throughout Skin: no rashes, warm and dry Results & Data Vital Signs (Past 12 Hours) Vital Signs Temp Pulse Pulse Resp BP BP Pulse Ox 03/17/23 15:48 36.8 C 69 18 93/47 L 100 03/17/23 11:00 36.7 C 69 17 130/61 96 03/17/23 07:31 37.0 C 70 18 131/51 L 96 O2 Del Method 03/17/23 15:48 Room Air 03/17/23 11:00 Room Air 03/17/23 07:31 Room Air Laboratory Results 03/17/23 07:43 03/17/23 07:42
[2023-03-18] MEDS ORDERED: CYANOCOBALAMIN (B-12) 500 MCG TABLET PO SCH (09:00)
== END 2023-03-17 18:30 | disposition home or self-care (01) | DRG 393 ==
LOC: ED 13:09 → 2S 16:39 → SUATTDRO 16:39 → 2S 18:49

== ENCOUNTER 2023-04-05 04:32 | Inpatient (IN) ==
--- NOTE | 2023-04-05 05:02 | Emergency Department Note ---
Impression & Plan Orthopnea ED Provider Note CHIEF COMPLAINT: Shortness of breath HISTORY OF PRESENT ILLNESS: This 52-year-old male patient presents to the emergency department via private vehicle for evaluation of shortness of breath when lying flat. The symptoms started 5 hours prior to arrival. Patient states he is on dialysis and goes to dialysis Thursday, Thursday, and Thursday. He did not miss any doses. He reports history of pleural effusions and states he has had these drained in the past. The patient notes that he has not been recently sick. He did have a hospitalization earlier this month. Patient does report a history of PE. He is not currently on any medication. No leg pain or swelling. No chest pain. He did not take anything or tried any interventions prior to arrival in the emergency department REVIEW OF SYSTEMS: A 10 system review of systems was performed with positives an d pertinent negatives listed in the history of present illness. All other systems were reviewed and are negative. ALLERGIES: Shellfish, codeine, promethazine PHYSICAL EXAM: VITALS: Vitals are noted on the nurse's note and reviewed by myself. Vital signs stable. GENERAL: This is a 52-year-old male, in no acute distress, nondiaphoretic, well- developed well-nourished. SKIN: The skin was without rashes, erythema, edema, or bruising. There is no tenting of the skin. Capillary refill less than 2 seconds. HEAD: Normocephalic atraumatic. EARS: External auditory canals clear, tympanic membranes pearly henry without erythema or effusion bilaterally. No hemotympanum. Negative forrest sign EYES: Pupils equal round and reactive to light and accommodation. Conjunctivae without injection, sclerae without icterus. Extraocular movements intact. NOSE: Patent, turbinates without inflammation or discharge. No sinus tenderness. MOUTH: Mucous membranes moist. Tonsils are not enlarged. Pharynx without erythema or exudate. Uvula midline. Airway patent. Tongue does not deviate. NECK: Supple without nuchal rigidity. No lymphadenopathy. No thyromegaly. Cervical spine is nontender. No JVD. HEART: Regular rate and rhythm without murmurs gallops or rubs. LUNGS: Clear to auscultation bilaterally without wheezes, rales or rhonchi. No retractions or accessory muscle use. ABDOMEN: Positive bowel sounds x 4. Soft, nontender, without masses or organomegaly. Prescott sign negative. No guarding or rebound tenderness. MUSCULOSKELETAL: No muscle atrophy, erythema, or edema noted. Full range of motion without joint tenderness in all extremities. No tenderness to palpation. Normal gait. Strength 5/5 throughout. NEURO: Patient was alert and oriented to person place and time. Normal sensation to light and sharp touch. Deep tendon reflexes 2+ throughout. No focal neurological deficits. 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 The monitor showed a normal sinus rhythm at a ventricular rate of 83 bpm, per my interpretation. EMERGENCY DEPARTMENT COURSE: The patient was seen and evaluated as above. The patient presents for orthopnea. The shortness of breath with lying flat started approximately 5 hours prior to arrival. The patient is on dialysis. He has not missed any dialysis sessions. He does have history of pleural effusions which have required drainage in the past. He has not had infectious symptoms Given the patient's history, we did elect to perform IV access, chest x-ray, EKG for evaluation. EKG shows a sinus rhythm with first-degree AV block. Ventricular rate of [address] elevation or depression. T wave inversion in lead I and aVL. Chest x-ray completed without clear evidence of infiltrate or large pleural effusion, per my interpretation. Unfortunately, labs were difficult to obtain. IV team did attempt to draw labs and offered to place an ultrasound-guided IV. Unfortunately, there was a delay with them getting here to the emergency department for this test. The patient will be signed out to Livan Logan PA-C pending IV access and labs. Please see his dictation regarding ongoing management, care, final disposition and plan. Differential diagnosis includes Reactive airway disease, pneumonia, pneumothorax, COPD, CHF, infections, cardiac ischemia, pulmonary embolism, musculoskeletal, gastrointestinal, as well as other pathologies. I attest that I have personally reviewed the patient's current medication list. Blood Pressure Screening: Patient was found to have a slightly elevated blood pressure due to circumstances. I do not believe that the patient requires hypertension monitoring. The chart was completed utilizing [employer] voice recognition software. Grammatical errors, random word insertions, pronoun errors, and incomplete sentences are an occasional consequence of this system due to software limitations, ambient noise, and hardware issues. Any formal questions or concerns about the content, text, or information contained within the body of this dictation should be directly addressed to the provider for clarification. 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 Lor Guadalupe; [facility]) GERD (gastroesophageal reflux disease) History of nephrolithiasis History of pulmonary embolism 11/2020; unk etiology; was on warfarin (taken off 05/2021) Hypertension Hypertensive emergency Hypertensive urgency Junctional rhythm Kidney stone on right side Lumbar radiculopathy Musculoskeletal chest pain Nausea & vomiting Palliative care encounter Personal history of diabetic foot ulcer Urolithiasis Surgical History H/O shoulder surgery History of appendectomy History of cardiac cath History of cataract surgery History of esophagogastroduodenoscopy (EGD) (~03/08/20) History of hip surgery History of lithotripsy History of open reduction and internal fixation (ORIF) procedure Nausea and vomiting after administration of anesthetic agent S/P arteriovenous (AV) fistula creation Family History Grandfather Myocardial infarction Grandfather (Maternal) Family history of diabetes mellitus Uncle Myocardial infarction Father Hypertension Mother Kidney stone Other No family history of adverse response to anesthesia Denies family history of Colon cancer Ovarian cancer Prostate cancer Breast cancer Social History Smoking Status: Former smoker Tobacco Type: Smokeless Tobacco (Dip or Chew) Second Hand Exposure: No; Do You Dip or Chew Tobacco: No (quit 2018); Hx Alcohol Use: No Hx Substance Use: No Preferred Language: Palauan Communication Ability: Effective Visual Impairment: No Limitations Hearing Ability: Normal Harness Fitter Required: No Beliefs That Will Affect Care: None marital status: Current Living Situation: Family Current Living Situation Comment: single story home with parents current occupational status: disabled How many Children do You have: 2 Feels Safe at Home: Yes Childhood Exposure to Second-Hand Smoke: Yes Dental Care, Regularly: No Physical Activity Frequency: 1-2 Times per Week Seatbelt Use: always Sunscreen Use: No Gender Identity: Male Assistive Devices: None Allergies Allergies Allergy/AdvReac Type Severity Reaction Status Date / Time shellfish derived Allergy Severe anaphylaxis Verified 03/30/23 14:04 codeine Allergy Intermediate Hives Verified 03/30/23 14:04 promethazine Allergy Intermediate itchy/hives Verified 03/30/23 14:04 Home Meds Home Medications Medication Instructions Recorded Confirmed acetaminophen 325 mg capsule 650 mg PO Q4H PRN Pain (Scale 09/28/20 03/30/23 Score 1-3) cholecalciferol (vitamin D3) 50 50 mcg PO QAM 10/25/21 03/30/23 mcg (2,000 unit) capsule (Vitamin D3) sertraline 100 mg tablet 100 mg PO QAM 12/29/21 03/30/23 sertraline 25 mg tablet 25 mg PO QAM 12/29/21 03/30/23 sucroferric oxyhydroxide 500 mg 1,000 mg PO TIDM 12/29/21 03/30/23 chewable tablet (Velphoro) amlodipine 10 mg tablet 10 mg PO QAM 03/01/22 03/30/23 melatonin 1 mg tablet 4 mg PO HS PRN Sleep 09/18/22 03/30/23 carvedilol 25 mg tablet 25 mg PO BID 02/19/23 03/30/23 hydralazine 50 mg tablet 50 mg PO TID 02/19/23 03/30/23 midodrine 5 mg tablet 5 mg PO .COMPLEX 02/19/23 03/30/23 mirtazapine 7.5 mg tablet 7.5 mg PO HS 02/19/23 03/30/23 minoxidil 2.5 mg tablet 5 mg PO DAILY 03/14/23 03/30/23 Previous Rx's Medication Instructions Recorded lorazepam 0.5 mg tablet 0.5 mg PO Q6H PRN Anxiety #60 tabs 03/27/21 losartan 100 mg tablet 100 mg PO QAM #90 tabs 06/05/22 atorvastatin 10 mg tablet 10 mg PO QAM #90 tabs 08/11/22 ondansetron HCl 4 mg tablet 8 mg PO Q4 PRN nausea or vomiting 08/14/22 #60 tabs pen needle, diabetic 31 gauge x #500 ea 12/08/22/16" (Comfort EZ Pen [place]) insulin glargine 100 unit/mL (3 17 unit (0.17 mL) subcut QAM #15 mL 12/16/22 mL) subcutaneous pen (Basaglar KwikPen U-100 Insulin) insulin regular human 100 unit/mL 30 unit (0.3 mL) subcut DAILY #15 02/20/23 (3 mL) subcutaneous pen (Novolin R mL FlexPen) cyanocobalamin (vitamin B-12) 1,000 mcg PO DAILY #30 caps 03/17/23 1,000 mcg capsule folic acid 1 mg tablet 1 mg PO QAM #30 tabs 03/17/23 pantoprazole 40 mg tablet,delayed 40 mg PO QAM #30 tabs 03/30/23 release (Protonix) Results & Data (ED) Vital Signs Vital Signs - 24 hr 04/05/23 04:38 04/05/23 05:15 04/05/23 05:15 Temperature 36.2 C L Temperature Source Temporal Artery Scan Pulse Rate 83 Pulse Rate [Apical] 77 Respiratory Rate 20 21 Respiratory Effort / Characteristics Respiratory Depth Normal Respiratory Pattern Blood Pressure 181/78 H Blood Pressure [Right Arm] Blood Pressure Mean 112 Blood Pressure Mean [Right Arm] Blood Pressure Position [Right Arm] Pulse Oximetry 99 96 Oxygen Delivery Method Room Air Sepsis Recent Fever Within 48 Hours No Sepsis New/Unexplained Change in Mental Status No Sepsis Action Taken by Nursing No Action Required 04/05/23 05:15 04/05/23 05:18 04/05/23 07:28 Temperature Temperature Source Pulse Rate 77 Pulse Rate [Apical] 77 Respiratory Rate 18 Respiratory Effort / Characteristics Non-Labored Spontaneous Respiratory Depth Normal Respiratory Pattern Regular Blood Pressure Blood Pressure [Right Arm] 206/113 H Blood Pressure Mean Blood Pressure Mean [Right Arm] 144 Blood Pressure Position [Right Arm] Lying Pulse Oximetry 95 Oxygen Delivery Method Room Air Room Air Sepsis Recent Fever Within 48 Hours Sepsis New/Unexplained Change in Mental Status Sepsis Action Taken by Nursing Laboratory Data 04/05/23 07:27 04/05/23 07:27 Lab Results 04/05/23 Range/Units 07:27 WBC 8.88 (4.8-10.8) K/ul RBC 2.69 L (4.70-6.10) M/uL Hgb 8.8 L (14.0-18.0) g/dl Hct 26.9 L (42.0-52.0) % MCV 100.0 (80.0-100.0) fL MCH 32.7 (25.0-34.0) pg MCHC 32.7 (32.0-36.0) g/dL RDW Std Deviation 52.1 H (36.4-46.3) fL RDW Coeff of Kami 14.2 (11.5-14.5) % Plt Count 235 (130-400) K/uL MPV 9.1 L (9.4-12.4) fL Immature Gran % (Auto) 0.7 % Neut % (Auto) 65.1 % Lymph % (Auto) 19.4 % [place] % (Auto) 8.7 % Eos % (Auto) 5.4 % Baso % (Auto) 0.7 % Neut # (Auto) 5.79 (1.40-6.50) K/uL Lymph # (Auto) 1.72 (1.20-3.40) K/uL [place] # (Auto) 0.77 H (0.11-0.59) K/uL Eos # (Auto) 0.48 (0.00-0.50) K/uL Baso # (Auto) 0.06 (0.00-0.20) K/uL Immature Gran # (Auto) 0.06 (0.01-0.20) K/uL Imaging Data Radiologist's Impression: Chest X-Ray 04/05/23 04:56 XR chest 1V portable HISTORY: 52 years-old Male Dyspnea acute shortness of breath COMPARISON: 03/14/2023 TECHNIQUE: AP view of the chest FINDINGS: Cardiac silhouette is enlarged. Pulmonary vascular congestion with mild interstitial coarsening. Probable trace pleural effusions. No pneumothorax. Degenerative changes of the shoulders and spine. IMPRESSION: Cardiomegaly with suggestion of mild pulmonary edema. ACT 112: Negative or not required by law. The above report was generated using voice recognition software. It may contain grammatical, syntax or spelling errors. Electronically signed by: Justus Martinez M.D. 04/05/2023 7:39 AM Discharge Plan Visit Data Chief Complaint: Shortness of Breath/Dyspnea ED Provider: Massimo Nathan ED Midlevel Provider: Livan Logan Discharge Problem: Orthopnea Patient Disposition: Still a Patient Forms Stand Alone Forms: My [facility] [employer] Prescriptions Prescriptions: No Action acetaminophen 325 mg capsule 650 mg PO Q4H PRN (Reason: Pain (Scale Score 1-3)) lorazepam 0.5 mg tablet 0.5 mg PO Q6H PRN (Reason: Anxiety) Qty: 60 0RF losartan 100 mg tablet 100 mg PO QAM Qty: 90 3RF atorvastatin 10 mg tablet 10 mg PO QAM Qty: 90 1RF (DME) pen needle, diabetic [Comfort EZ Pen [place]] 31 gauge x 5/16" needle See Rx Instructions .Route Qty: 500 3RF Rx Instructions: use 5 per day with insulin injections carvedilol 25 mg tablet 25 mg PO BID Rx Instructions: TAKE THIS MEDICATION WITH FOOD hydralazine 50 mg tablet 50 mg PO TID insulin glargine [Basaglar KwikPen U-100 Insulin] 100 unit/mL (3 mL) insulin pen 17 unit SUBCUT QAM MDD 17 Qty: 15 3RF mirtazapine 7.5 mg tablet 7.5 mg PO HS midodrine 5 mg tablet 5 mg PO .COMPLEX Rx Instructions: 5 mg orally as needed at dialysis; Novolin R FlexPen 100 unit/mL (3 mL) insulin pen 30 unit subcut DAILY Qty: 15 5RF ondansetron HCl 4 mg tablet 8 mg PO Q4 PRN (Reason: nausea or vomiting) Qty: 60 2RF melatonin 1 mg tablet 4 mg PO HS PRN (Reason: Sleep) pantoprazole [Protonix] 40 mg tablet,delayed release (DR/EC) 40 mg PO QAM Qty: 30 1RF sertraline 100 mg tablet 100 mg PO QAM Rx Instructions: TOTAL DOSE 125 MG--TAKES WITH 25 MG TAB. sertraline 25 mg tablet 25 mg PO QAM Rx Instructions: TOTAL DOSE 125 MG--TAKES WITH 100 MG TAB. Velphoro 500 mg tablet,chewable 1,000 mg PO TIDM amlodipine 10 mg tablet 10 mg PO QAM cholecalciferol (vitamin D3) [Vitamin D3] 50 mcg (2,000 unit) capsule 50 mcg PO QAM minoxidil 2.5 mg tablet 5 mg PO DAILY cyanocobalamin (vitamin B-12) 1,000 mcg capsule 1,000 mcg PO DAILY Qty: 30 0RF Rx Instructions: OTC folic acid 1 mg Tablet 1 mg PO QAM Qty: 30 0RF Rx Instructions: OTC Referrals Referrals: Genet Cool MD [Primary Care Provider] -
--- NOTE | 2023-04-05 07:40 | XRay Report ---
XR chest 1V portable HISTORY: 52 years-old Male Dyspnea acute shortness of breath COMPARISON: 03/14/2023 TECHNIQUE: AP view of the chest FINDINGS: Cardiac silhouette is enlarged. Pulmonary vascular congestion with mild interstitial coarsening. Prob able trace pleural effusions. No pneumothorax. Degenerative changes of the shoulders and spine. IMPRESSION: Cardiomegaly with suggestion of mild pulmonary edema. ACT 112: Negative or not required by law. The above report was generated using voice recognition software. It may contain grammatical, syntax o r spelling errors. Electronically signed by: Justus Martinez M.D. 04/05/2023 7:39 AM
[2023-04-05 07:47] LABS: Basophils # (auto) 0.06 K/uL (0.00-0.20); Basophils % (auto) 0.7 %; Eosinophils # (auto) 0.48 K/uL (0.00-0.50); Eosinophils % (auto) 5.4 %; Hematocrit (blood only) 26.9 % (42.0-52.0); Hemoglobin 8.8 g/dl (14.0-18.0); Immature Granulocytes # (auto) 0.06 K/uL (0.01-0.20); Immature Granulocytes % (auto) 0.7 %; Lymphocytes # (auto) 1.72 K/uL (1.20-3.40); Lymphocytes % (auto) 19.4 %; Mean Corpuscular Hemoglobin 32.7 pg (25.0-34.0); Mean Corpuscular Hgb Conc 32.7 g/dL (32.0-36.0); Mean Platelet Volume 9.1 fL (9.4-12.4); Monocytes # (auto) 0.77 K/uL (0.11-0.59); Monocytes % (auto) 8.7 %; Neutrophils # (auto) 5.79 K/uL (1.40-6.50); Neutrophils % (auto) 65.1 %; Platelet Count 235 K/uL (130-400); RDW Coefficient of Variation 14.2 % (11.5-14.5); RDW Standard Deviation 52.1 fL (36.4-46.3); Red Blood Count 2.69 M/uL (4.70-6.10); White Blood Count 8.88 K/ul (4.8-10.8)
[2023-04-05 08:12] LABS: Albumin Globulin Ratio 1.4 (0.9-2); Albumin Level 3.8 gm/dl (3.4-5.0); BUN Creatinine Ratio 9.5 (10-20); Bilirubin,Total 0.5 mg/dl (0.2-1.0); Calcium 7.7 mg/dl (8.6-10.3); Creatinine Clr Calc Pharmacy 10.7 ml/min; Est GFR (Non-African American) 7.7 ml/min; Globulin 2.7 gm/dl (2.5-4.0); Magnesium 2.4 mg/dl (1.7-2.4); Potassium 4.4 mmol/L (3.5-5.1); Total Protein 6.5 gm/dl (6.0-8.3)
[2023-04-05 08:15] LABS: Troponin I High Sensitivity 22.3 pg/ml (0-20)
[2023-04-05 08:18] LABS: INR 0.9 (0.9-1.1); Partial Thromboplastin Time 26.8 Seconds (21.0-31.0); Prothrombin Time 10.3 Seconds (9.0-12.0)
[2023-04-05 08:38] LABS: Adenovirus PCR Not Detected (NotDetected); Bordetella parapertussis PCR Not Detected (NotDetected); Bordetella pertussis PCR Not Detected (NotDetected); Chlamydia pneumoniae PCR Not Detected (NotDetected); Coronavirus 229E PCR Not Detected (NotDetected); Coronavirus CoV-2 (COVID19)PCR Not Detected (NotDetected); Coronavirus HKU1 PCR Not Detected (NotDetected); Coronavirus NL63 PCR Not Detected (NotDetected); Coronavirus OC43PCR Not Detected (NotDetected); Human Metapneumovirus PCR Not Detected (NotDetected); Influenza A PCR Not Detected (NotDetected); Influenza B PCR Not Detected (NotDetected); Mycoplasma pneumoniae PCR Not Detected (NotDetected); Parainfluenza Virus 1 PCR Not Detected (NotDetected); Parainfluenza Virus 2 PCR Not Detected (NotDetected); Parainfluenza Virus 3 PCR Not Detected (NotDetected); Parainfluenza Virus 4 PCR Not Detected (NotDetected); Respiratory Syncytial VirusPCR Not Detected (NotDetected); Rhinovirus/Enterovirus PCR Not Detected (NotDetected)
[2023-04-05] MEDS ORDERED: LABETALOL HCL IV 5 MG/ML 20ML IV STA (09:06)
--- NOTE | 2023-04-05 09:32 | Emergency Department Note ---
ED Visit Note Patient case signed out to me at shift change on 04/05/2023. Please refer to Ana Hartley PA-C note regarding details prior to time of signout. In short, the patient presents to us today with dyspnea worse with supine positioning. The patient overall is well-appearing but does appear tired. He notes he feels more tired than his baseline. He states that he last completed dialysis on Thursday and is scheduled again for tomorrow which is Thursday. The patient underwent testing here and reveals blood work with no leukocytosis. Anemia noted with hemoglobin of 8.8, down one-point compared to previous. Expected creatinine of 7.35 and elevated BUN at 70 in the setting of end-stage renal disease currently on dialysis. A BNP was also reviewed and elevated but expected noting chronic findings. Troponin was also elevated but similar to baseline. Bio[employer] panel negative. Chest x-ray revealing cardiomegaly and mild pulmonary edema. I agree with this clinically. The patient does not urinate. At this time he may benefit from dialysis. IV labetalol ordered noting the patient's hypertension. I do believe that he would benefit from further evaluation and management in the inpatient setting. Patient case discussed with the hospitalist service. Consult for nephrology placed and I did speak with Dr. Cook of nephrology. Please refer to further documentation regarding his stay. I do not suspect PE noting the patient's presentation and I do not suspect ACS. .
--- NOTE | 2023-04-05 10:25 | History & Physical Report ---
Date of Service April 05, 2023 Assessment & Plan (1) Acute respiratory failure with hypoxia: Plan: Orthopnea, shortness of breath, 2 L oxygen requirement Dry weight approximately 50 kg, 62.8 kg on admission. Chest x-ray suggestive of mild pulmonary edema consistent with volume overload. BNP is 1557 consistent with volume overload Patient has not missed any MWF dialysis sessions, reports he actually had a little extra fluid taken off at his last session. Denies salt and fluid dietary indiscretion Does endorse intermittent chest pain in the past few weeks which resolves with rest, none at time of bedside evaluation EKG with first-degree AV block, T wave 1/aVL inversion. High sensitive troponin is minimally elevated, trended Patient is hypertensive on admission, did not take any morning medications. Medications ordered as noted Potassium is normal Nephrology consulted for dialysis, suspect volume overload in anuric ESRD Renal diet, DM 1, heart (2) CAD (coronary artery disease): Plan: CAD, hypertension With intermittent chest pain, no chest pain and assessment Hypertensive [id number] at bedside. Missed all morning medications Carvedilol, amlodipine, hydralazine initially ordered, subsequently notified patient able to be taken to dialysis urgently. These were temporarily held and may resume after dialysis. Will follow postop pressures prior to administering as he has a history of periHD hypotension requiring midodrine. patient confirms he did not take any of these this morning Continue statin May use Nitropaste temporarily for hypertension, and if chest pain recurs If patient has recurrent chest pain or uptrending Trope, will repeat a limited echo for wall motion change. Echo 02/26/2023: EF 50-55%, no regional wall motion abnormalities, severe LVH. (3) ESRD (end stage renal disease): Plan: With evidence of volume overload is noted. 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 Sliding scale ordered on admission Goal BSG [id number] Glucose checks AC/at bedtime (5) Diabetic gastroparesis: Plan: Noted (6) Hypertension: Plan: Home medications, labetalol, and Nitropaste ordered.hypertensive in the setting of missing medications and volume overload. Goal BSG less than 1 8 (7) Anxiety: Plan: Sertraline, mirtazapine at bedtime continued Plan DVT prophylaxis: Heparin 5000 units every 12 Diet: DM 1/heart healthy/renal Disposition: PCU CODE STATUS: Full History of Present Illness Primary Care Provider: Genet Cool MD Jorge Alberto De Los Santos is a 52-year-old male with a past medical history of gastroparesis, type 1 diabetes mellitus with CKD/nephropathy/retinopathy and ESRD through AV fistula, anemia of chronic disease, lumbar radiculopathy who presented for shortness of breath/orthopnea with acute worsening several hours prior to presentation to the ER. He is typically on Thursday dialysis and has not missed any dialysis, and has not had any salt indiscretion. He has not had fever/chills/sweats or cold-like symptoms. In the ER patient was found to have first-degree AV block but no ST segment changes, T wave inversion was noted in lead I/aVL. Chest x-ray shows mild interstitial edema. Patient labs were delayed due to difficult access and ultrasound-guided IV was required from IV team. They subsequently showed potassium 4.4, BNP 1557, troponin 21.9. Bio fire negative. BSG 107, bicarb is not suppressed. Patient is recommended for admission for orthopnea and suspected volume overload in the setting of dialysis dependence. Current weight Kg 62.8, dry weight ~58kg Allergies Allergy/AdvReac Type Severity Reaction Status Date / Time shellfish derived Allergy Severe anaphylaxis Verified 03/30/23 14:04 codeine Allergy Intermediate Hives Verified 03/30/23 14:04 promethazine Allergy Intermediate itchy/hives Verified 03/30/23 14:04 Home Medications Medication Instructions Recorded Confirmed Type acetaminophen 325 mg capsule 650 mg PO Q4H PRN Pain (Scale 09/28/20 03/30/23 History Score 1-3) lorazepam 0.5 mg tablet 0.5 mg PO Q6H PRN Anxiety #60 tabs 03/27/21 03/30/23 Rx cholecalciferol (vitamin D3) 50 50 mcg PO QAM 10/25/21 03/30/23 History mcg (2,000 unit) capsule (Vitamin D3) sertraline 100 mg tablet 100 mg PO QAM 12/29/21 03/30/23 History sertraline 25 mg tablet 25 mg PO QAM 12/29/21 03/30/23 History sucroferric oxyhydroxide 500 mg 1,000 mg PO TIDM 12/29/21 03/30/23 History chewable tablet (Velphoro) amlodipine 10 mg tablet 10 mg PO QAM 03/01/22 03/30/23 History losartan 100 mg tablet 100 mg PO QAM #90 tabs 06/05/22 03/30/23 Rx atorvastatin 10 mg tablet 10 mg PO QAM #90 tabs 08/11/22 03/30/23 Rx ondansetron HCl 4 mg tablet 8 mg PO Q4 PRN nausea or vomiting 08/14/22 03/30/23 Rx #60 tabs melatonin 1 mg tablet 4 mg PO HS PRN Sleep 09/18/22 03/30/23 History pen needle, diabetic 31 gauge x #500 ea 12/08/22 03/30/23 Rx 5/16" (Comfort EZ Pen [place]) insulin glargine 100 unit/mL (3 17 unit (0.17 mL) subcut QAM #15 mL 12/16/22 03/30/23 Rx mL) subcutaneous pen (Basaglar KwikPen U-100 Insulin) carvedilol 25 mg tablet 25 mg PO BID 02/19/23 03/30/23 History hydralazine 50 mg tablet 50 mg PO TID 02/19/23 03/30/23 History midodrine 5 mg tablet 5 mg PO .COMPLEX 02/19/23 03/30/23 History mirtazapine 7.5 mg tablet 7.5 mg PO HS 02/19/23 03/30/23 History insulin regular human 100 unit/mL 30 unit (0.3 mL) subcut DAILY #15 02/20/23 03/30/23 Rx (3 mL) subcutaneous pen (Novolin R mL FlexPen) minoxidil 2.5 mg tablet 5 mg PO DAILY 03/14/23 03/30/23 History cyanocobalamin (vitamin B-12) 1,000 mcg PO DAILY #30 caps 03/17/23 03/30/23 Rx 1,000 mcg capsule folic acid 1 mg tablet 1 mg PO QAM #30 tabs 03/17/23 03/30/23 Rx pantoprazole 40 mg tablet,delayed 40 mg PO QAM #30 tabs 03/30/23 03/30/23 Rx release (Protonix) Past Med/Surg History Medical History Anemia of chronic disease Anxiety AV fistula left upper arm CAD (coronary artery disease) mild, non-obstructive CAD per 10/2018 cardiac cath> [facility] Chronic pleural effusion PleurX catheter placed 01/24/21--removed 07/2021 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 Lor Guadalupe; [facility]) GERD (gastroesophageal reflux disease) History of nephrolithiasis History of pulmonary embolism 11/2020; unk etiology; was on warfarin (taken off 05/2021) Hypertension Hypertensive emergency Hypertensive urgency Junctional rhythm Kidney stone on right side Lumbar radiculopathy Musculoskeletal chest pain Nausea & vomiting Palliative care encounter Personal history of diabetic foot ulcer Urolithiasis Surgical History H/O shoulder surgery History of appendectomy History of cardiac cath History of cataract surgery History of esophagogastroduodenoscopy (EGD) (~03/08/20) History of hip surgery History of lithotripsy History of open reduction and internal fixation (ORIF) procedure Nausea and vomiting after administration of anesthetic agent S/P arteriovenous (AV) fistula creation Family History Grandfather Myocardial infarction Grandfather (Maternal) Family history of diabetes mellitus Uncle Myocardial infarction Father Hypertension Mother Kidney stone Other No family history of adverse response to anesthesia Denies family history of Colon cancer Ovarian cancer Prostate cancer Breast cancer Social History Smoking Status: Never smoker Tobacco Type: Smokeless Tobacco (Dip or Chew) Second Hand Exposure: No; Do You Dip or Chew Tobacco: No (quit 2018); Hx Alcohol Use: No Hx Substance Use: No Preferred Language: Polish Communication Ability: Effective Visual Impairment: No Limitations Hearing Ability: Normal Mandrel Press Hand Required: No Beliefs That Will Affect Care: None marital status: Current Living Situation: Family Current Living Situation Comment: single story home with parents current occupational status: disabled How many Children do You have: 2 Other Information That Helps Us Care for You: No Feels Safe at Home: Yes Safety Concerns: Feels Safe At This Time Childhood Exposure to Second-Hand Smoke: Yes Dental Care, Regularly: No Physical Activity Frequency: 1-2 Times per Week Seatbelt Use: always Sunscreen Use: No Gender Identity: Male Assistive Devices: Denture - Upper and Hearing Aid - Bilateral Physical Exam Physical Exam: General: A&Ox3. NAD. Cooperative. HEENT: Atraumatic, normocephalic. Pupils equal and reactive to light. Vision and hearing grossly intact Pulm: Diminished in the bases, trace bibasilar crackles which cleared on deep. Symmetrical chest rise. No increased work of breathing. No respiratory distress. Cardiac: RRR, -mrg. Radial pulses intact and symmetrical. JVD ~2cm above the clavicle which raises to the angle of the mandible on HJR. No pitting edema of the lower extremities is present Abdominal: Nontender, nondistended, soft. BS present. Ext: warm, dry. No pitting edema. Left AV fistula is intact, good thrill. No overlying warmth, tenderness, erythema Results & Data Results & Data Vital Signs (Past 12 Hours) Vital Signs Temp Pulse Pulse Resp BP BP Pulse Ox 04/05/23 09:35 87 04/05/23 08:36 97 04/05/23 08:35 79 16 86 L 04/05/23 07:28 77 18 206/113 H 95 04/05/23 05:18 77 04/05/23 05:15 04/05/23 05:15 77 21 96 04/05/23 05:15 04/05/23 04:38 36.2 C L 83 20 181/78 H 99 O2 Del Method O2 Flow Rate 04/05/23 09:35 04/05/23 08:36 Nasal Cannula 2 04/05/23 08:35 Room Air 04/05/23 07:28 Room Air 04/05/23 05:18 04/05/23 05:15 Room Air 04/05/23 05:15 04/05/23 05:15 Room Air 04/05/23 04:38 Code Status & VTE Plan VTE Prophylaxis Plan VTE Prophylaxis will be ordered: Yes PG Care Time/CCT Total # of Minutes Spent Total Time Spent with Patient: Total time spent is greater than 50% in coordination of care (as documented) at patient's floor/unit and/or counseling patient: Coding Level of Care Code 69342 INT INP/OBS CARE 3/75MIN Diagnoses Acute respiratory failure with hypoxia J96.01 CAD (coronary artery disease) I25.10 Associated angina: without angina Coronary Disease-Associated Artery/Lesion type: [place] artery [place] vs. 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 transplanted heart: [place] heart Qualified Code(s): I25.10 - Atherosclerotic heart disease of [place] coronary artery without angina pectoris (6) Hypertension Hypertension type: unspecified Qualified Code(s): I10 - Essential (primary) hypertension
[2023-04-05] MEDS ORDERED: amLODIPine BESYLATE 5 MG TAB PO ONE (10:45)
[2023-04-05] MEDS ORDERED: carvediloL 25 MG TAB PO ONE (10:45)
[2023-04-05] MEDS ORDERED: LOSARTAN POTASSIUM 50 MG TAB PO ONE (10:46)
--- NOTE | 2023-04-05 12:43 | Electrocardiogram Report ---
Test Reason : Blood Pressure : / mmHG Vent. Rate : 081 BPM Atrial Rate : 081 BPM P-R Int : 238 ms QRS Dur : 094 ms QT Int : 428 ms P-R-T Axes : 063 -27 111 degrees QTc Int : 497 ms Sinus rhythm with 1st degree A-V block Moderate voltage criteria for LVH, may be normal variant Abnormal ECG When compared with ECG of 15-MAR-2023 05:50, AL interval has increased Nonspecific T wave abnormality no longer evident in Inferior leads Confirmed by Dewayne Spviey ([id number]) on 04/05/2023 12:43:18 PM Referred By: Genet Cool Confirmed By:Pee Spivey
[2023-04-05] MEDS ORDERED: MIDODRINE HCL 2.5 MG TAB PO SCH (13:30)
[2023-04-05] MEDS ORDERED: POLYETHYLENE (MIRALAX) 17 GM PACK PO PRN (13:30)
[2023-04-05] MEDS ORDERED: ACETAMINOPHEN 325 MG TAB PO PRN (13:30)
[2023-04-05] MEDS ORDERED: LORazepam 0.5 MG TAB PO PRN (13:30)
[2023-04-05] MEDS ORDERED: ONDANSETRON 4 MG OD TAB PO PRN (13:30)
[2023-04-05] MEDS ORDERED: ONDANSETRON INJ 2 MG/ML 2 ML VIAL IV PRN (13:30)
[2023-04-05] MEDS ORDERED: SODIUM CHLORIDE 0.9% 1,000 ML IV PRN (13:51)
[2023-04-05] MEDS ORDERED: MELATONIN 3 MG TAB PO PRN (14:12)
--- NOTE | 2023-04-05 14:19 | Nephrology Consultation ---
Date of Consultation April 05, 2023 Assessment & Plan (1) ESRD (end stage renal disease): ERSD on HD MWF Last dialysed on thursday fro " full treatment" Admitted to drinking more than his daily allowance,k safe - Emergent dialysis today for 3 hr with 3 lit UF. - He ws hypertensive and had not taken his antihypertensives today--Hospitalist aware,, restarted on his home anihypertensives. - he will be dialysed again tmrw for 3 hr with 2.5--3 lit UF. History of Present Illness Reason for Consultation: ESRD on HD, a/w SOB Attending Physician: Obie Argueta DO History of Present Illness 52-year-old male with ESRD on dialysis Thursday at [facility] with Dr. Lor Guadalupe, T1DM, very severe diabetic gastroparesis with numerous admission in the past for intractable nausea and vomiting episodes usually leading to DKA. He presents with SOB,His last dialysis was on Thursday.BP was elevated, He had not taken his Anti hypertensives today.Chest x- ray suggestive of mild pulmonary edema consistent with volume overload. BNP was 1557 consistent, He does not make urine and admitted to drinking more than his allowance. Allergies Allergy/AdvReac Type Severity Reaction Status Date / Time shellfish derived Allergy Severe anaphylaxis Verified 03/30/23 14:04 codeine Allergy Intermediate Hives Verified 03/30/23 14:04 promethazine Allergy Intermediate itchy/hives Verified 03/30/23 14:04 Home Medications Medication Instructions Recorded Confirmed Type acetaminophen 325 mg capsule 650 mg PO Q4H PRN Pain (Scale 09/28/20 03/30/23 History Score 1-3) lorazepam 0.5 mg tablet 0.5 mg PO Q6H PRN Anxiety #60 tabs 03/27/21 03/30/23 Rx cholecalciferol (vitamin D3) 50 50 mcg PO QAM 10/25/21 03/30/23 History mcg (2,000 unit) capsule (Vitamin D3) sertraline 100 mg tablet 100 mg PO QAM 12/29/21 03/30/23 History sertraline 25 mg tablet 25 mg PO QAM 12/29/21 03/30/23 History sucroferric oxyhydroxide 500 mg 1,000 mg PO TIDM 12/29/21 03/30/23 History chewable tablet (Velphoro) amlodipine 10 mg tablet 10 mg PO QAM 03/01/22 03/30/23 History losartan 100 mg tablet 100 mg PO QAM #90 tabs 06/05/22 03/30/23 Rx atorvastatin 10 mg tablet 10 mg PO QAM #90 tabs 08/11/22 03/30/23 Rx ondansetron HCl 4 mg tablet 8 mg PO Q4 PRN nausea or vomiting 08/14/22 03/30/23 Rx #60 tabs melatonin 1 mg tablet 4 mg PO HS PRN Sleep 09/18/22 03/30/23 History pen needle, diabetic 31 gauge x #500 ea 12/08/22 03/30/23 Rx /" (Comfort EZ Pen [place]) insulin glargine 100 unit/mL (3 17 unit (0.17 mL) subcut QAM #15 mL 12/16/22 03/30/23 Rx mL) subcutaneous pen (Basaglar KwikPen U-100 Insulin) carvedilol 25 mg tablet 25 mg PO BID 02/19/23 03/30/23 History hydralazine 50 mg tablet 50 mg PO TID 02/19/23 03/30/23 History midodrine 5 mg tablet 5 mg PO .COMPLEX 02/19/23 03/30/23 History mirtazapine 7.5 mg tablet 7.5 mg PO HS 02/19/23 03/30/23 History insulin regular human 100 unit/mL 30 unit (0.3 mL) subcut DAILY #15 02/20/23 03/30/23 Rx (3 mL) subcutaneous pen (Novolin R mL FlexPen) minoxidil 2.5 mg tablet 5 mg PO DAILY 03/14/23 03/30/23 History cyanocobalamin (vitamin B-12) 1,000 mcg PO DAILY #30 caps 03/17/23 03/30/23 Rx 1,000 mcg capsule folic acid 1 mg tablet 1 mg PO QAM #30 tabs 03/17/23 03/30/23 Rx pantoprazole 40 mg tablet,delayed 40 mg PO QAM #30 tabs 03/30/23 03/30/23 Rx release (Protonix) Patient History Medical History Anemia of chronic disease Anxiety AV fistula left upper arm CAD (coronary artery disease) mild, non-obstructive CAD per 10/2018 cardiac cath> [facility] Chronic pleural effusion PleurX catheter placed 01/24/21--removed 07/2021 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 Lor Guadalupe; [facility]) GERD (gastroesophageal reflux disease) History of nephrolithiasis History of pulmonary embolism 11/2020; unk etiology; was on warfarin (taken off 05/2021) Hypertension Hypertensive emergency Hypertensive urgency Junctional rhythm Kidney stone on right side Lumbar radiculopathy Musculoskeletal chest pain Nausea & vomiting Palliative care encounter Personal history of diabetic foot ulcer Urolithiasis Surgical History H/O shoulder surgery History of appendectomy History of cardiac cath History of cataract surgery History of esophagogastroduodenoscopy (EGD) (~03/08/20) History of hip surgery History of lithotripsy History of open reduction and internal fixation (ORIF) procedure Nausea and vomiting after administration of anesthetic agent S/P arteriovenous (AV) fistula creation Family History Grandfather Myocardial infarction Grandfather (Maternal) Family history of diabetes mellitus Uncle Myocardial infarction Father Hypertension Mother Kidney stone Other No family history of adverse response to anesthesia Denies family history of Colon cancer Ovarian cancer Prostate cancer Breast cancer Social History Smoking Status: Former smoker Tobacco Type: Smokeless Tobacco (Dip or Chew) Second Hand Exposure: No; Do You Dip or Chew Tobacco: No (quit 2018); Hx Alcohol Use: No Hx Substance Use: No Preferred Language: [place] Citizen Communication Ability: Effective Visual Impairment: No Limitations Hearing Ability: Normal Valve Inserter Required: No Beliefs That Will Affect Care: None marital status: Current Living Situation: Family Current Living Situation Comment: single story home with parents current occupational status: disabled How many Children do You have: 2 Feels Safe at Home: Yes Childhood Exposure to Second-Hand Smoke: Yes Dental Care, Regularly: No Physical Activity Frequency: 1-2 Times per Week Seatbelt Use: always Sunscreen Use: No Gender Identity: Male Assistive Devices: None Review of Systems Review of Systems: All systems reviewed & are unremarkable except as noted in HPI & below Physical Exam Physical Exam: Constitutional:Appears in respiratory distress, but alert and oriented Neck: Trachea is midline. Visual inspection is normal. Respiratory: bIlateral crets, poor air entry bilaterally Cardiovascular: Regular rate and rhythm. No murmurs. No edema. Musculoskeletal: No cyanosis. Patient is able to move all extremities. Skin: No rashes, warm dry and intact. Neurologic: No obvious focal neurological deficits seen. Results & Data Vital Signs (Past 12 Hours) Vital Signs Temp Pulse Pulse Pulse Resp BP BP 04/05/23 12:30 77 216/81 H 04/05/23 12:05 79 206/107 H 04/05/23 13:54 36.7 C 80 04/05/23 10:00 76 18 218/100 H 04/05/23 10:11 76 218/100 H 04/05/23 09:35 87 04/05/23 08:36 04/05/23 08:35 79 16 04/05/23 07:28 77 18 206/113 H 04/05/23 05:18 77 04/05/23 05:15 04/05/23 05:15 77 21 04/05/23 05:15 04/05/23 04:38 36.2 C L 83 20 181/78 H Pulse Ox O2 Del Method O2 Flow Rate 04/05/23 12:30 04/05/23 12:05 04/05/23 13:54 04/05/23 10:00 99 Nasal Cannula 2 04/05/23 10:11 04/05/23 09:35 04/05/23 08:36 97 Nasal Cannula 2 04/05/23 08:35 86 L Room Air 04/05/23 07:28 95 Room Air 04/05/23 05:18 04/05/23 05:15 Room Air 04/05/23 05:15 96 04/05/23 05:15 Room Air 04/05/23 04:38 99 Laboratory Results 04/05/23 07:27 04/05/23 07:27
[2023-04-05] MEDS ORDERED: GLUCOSE 10 TAB/TUBE PO PRN (15:00)
[2023-04-05] MEDS ORDERED: GLUCOSE 40% GEL 15 GM TUBE PO PRN (15:00)
[2023-04-05] MEDS ORDERED: CARBOHYDRATES FOR HYPOGLYCEMIA PO PRN (15:00)
[2023-04-05] MEDS ORDERED: DEXTROSE 50% 50 ML SYRINGE IV PRN (15:00)
[2023-04-05] MEDS ORDERED: GLUCAGON FOR INJ 1 MG VIAL IM PRN (15:00)
[2023-04-05] MEDS: hydrALAZINE TAB 50 MG TAB PO SCH ×2 (15:49→20:06)
[2023-04-05] MEDS: VELPHORO: ORDER AWAITING ACTION SCH ×2 (15:50→23:29)
[2023-04-05] MEDS: NITROGLYCERIN 2% OINTMENT 30GM TUBE EXT SCH ×4 (15:51→22:18)
[2023-04-05] MEDS: INSULIN ASPART PER UNIT CHARGE SC SCH ×3 (17:25→20:12)
[2023-04-05] MEDS: HEPARIN SOD 5,000 UNIT/0.5 ML VIAL SQ SCH (20:05)
[2023-04-05] MEDS: carvediloL 25 MG TAB PO SCH (20:05)
[2023-04-05] MEDS: MIRTAZAPINE TAB 15 MG TAB PO SCH (20:06)
[2023-04-06] MEDS: NITROGLYCERIN 2% OINTMENT 30GM TUBE EXT SCH ×4 (04:01→20:44)
--- NOTE | 2023-04-06 07:23 | Hospitalist Progress Note ---
Date of Service April 06, 2023 Assessment & Plan (1) Acute respiratory failure with hypoxia: (2) CAD (coronary artery disease): (3) GERD (gastroesophageal reflux disease): (4) ESRD (end stage renal disease): (5) Anxiety: (6) Depression: (7) Lumbar radiculopathy: (8) Anemia of chronic disease: Plan Pt is a 52 yo male with a pertinent past medical history of ESRD with AV fistula on dialysis M/W/F, DMT1, HTN, CAD who presents to the hospital on 04/05 for SOB with fluid overload. #Acute respiratory failure with hypoxia in the setting of fluid overload Dry weight 50 kg, pt was 62.8 kg on admission, required 2L O2 initially, - admission Chest x-ray suggestive of mild pulmonary edema consistent with volume overload, BNP is 1557 consistent with volume overload as well - resp failure improved after dialysis done, now 95% sat on room air and comfortable #ESRD, HD MWF - pt states he has not missed an dialysis sessions - suspect volume overload in anuric ESRD, unclear why he became volume overloaded at this time, but pt admitted to drinking more than he knows he is suppose to have - nephrology consulted, HD done yesterday and today - will continue to monitor electrolytes daily #DMT1 - continue home insulin glargine - goal BSG 110-150 #CAD (coronary artery disease) If patient has recurrent chest pain or uptrending Trope, will repeat a limited echo for wall motion change. Echo 02/26/2023: EF 50-55%, no regional wall motion abnormalities, severe LVH. Continue statin #Hypertension - continue norvasc, coreg, losartan, and hydralazine #Anxiety - continue home sertraline, mirtazapine at bedtime Plan DVT prophylaxis: Heparin 5000 units every 12 Diet: DM 1/heart healthy/renal CODE STATUS: Full Admission and Anticipated Discharge Date Admission Date: April 05, 2023 Supervising Physician Co-Signing Physician Notes Attending attestation Pt seen and examined in concert with Dr. River. In agreement with the documented findings as noted in the resident documentation with any exceptions or additions as noted here. Resting comfortably in bed post dialysis without complaint On examination, S1/S2 nl RRR no MCG. CTAB. Abd NT/ND BS+ve ESRD on HD - nephrology consult - continue HD as noted and monitor BMP, CBC silvino Cr AHRF in the setting of fluid overload - improved following HD DMI - continue basal/bolus insulin regimen and monitor glucose POC Else see resident documentation as noted. Subjective Pt is a 52 yo male with a pertinent past medical history of ESRD with AV fistula on dialysis M/W/F, DMT1, HTN, CAD who presents to the hospital on 04/05 for SOB with fluid overload. Pt was seen this morning prior to dialysis. He states that he is feeling fine today and had no big complaints other than noting that the nurse mentioned his blood sugar was high. Otherwise, he is feeling well today. Review of Systems Review of Systems: Constitutional: denies fever, chills, Cardio: denies chest pain, Physical Exam Physical Exam: General:Alert and oriented, no acute distress, HEENT: Normocephalic, moist oral mucosa, Cardio: Regular rate and rhythm, no murmur, Resp:Lungs clear to auscultation b/l, no wheezes or rhonchi, GI: Soft and nontender, nondistended, bowel sounds active Skin: Warm, pink, dry, Psych: Mood-affect congruence. Results & Data Results & Data Vital Signs (Past 12 Hours) Vital Signs Temp Pulse Pulse Resp BP Pulse Ox O2 Del Method 04/06/23 06:49 36.5 C 72 18 157/73 H 95 Room Air 04/06/23 06:35 70 04/06/23 03:10 36.5 C 79 18 151/66 H 95 Nasal Cannula 04/05/23 22:55 36.9 C 70 18 117/63 98 Nasal Cannula 04/05/23 19:27 Room Air O2 Flow Rate 04/06/23 06:49 04/06/23 06:35 04/06/23 03:10 2 04/05/23 22:55 2 04/05/23 19:27 Resident Activity Tracking Resident Involvement: Resident Care Provided Care Provided: Adult Hospital Medicine (2) CAD (coronary artery disease) Associated angina: without angina Coronary Disease-Associated Artery/Lesion type: [place] artery [place] vs. transplanted heart: [place] heart Qualified Code(s): I25.10 - Atherosclerotic heart disease of [place] coronary artery without angina pectoris (6) Depression Active/Remission status: remission status unspecified Depression Type: major depressive disorder Major depression recurrence: recurrent Qualified Code(s): F33.9 - Major depressive disorder, recurrent, unspecified
[2023-04-06] MEDS: LANTUS PER UNIT CHARGE SQ SCH (08:05)
[2023-04-06] MEDS: INSULIN ASPART PER UNIT CHARGE SC SCH ×4 (08:05→20:55)
[2023-04-06] MEDS: VELPHORO: ORDER AWAITING ACTION SCH ×2 (08:14→15:48)
[2023-04-06] MEDS: SERTRALINE HCL 50 MG TABLET PO SCH (08:45)
[2023-04-06] MEDS: SERTRALINE HCL 100 MG TABLET PO SCH (08:45)
[2023-04-06] MEDS: FOLIC ACID 1 MG TAB PO SCH (08:46)
[2023-04-06] MEDS: PANTOprazole 40 MG TAB PO SCH (08:46)
[2023-04-06] MEDS: ATORVASTATIN 10 MG TAB PO SCH (08:46)
[2023-04-06] MEDS: CYANOCOBALAMIN (B-12) 500 MCG TABLET PO SCH (08:46)
[2023-04-06] MEDS: minoxidiL 2.5 MG TAB PO SCH (08:46)
[2023-04-06] MEDS: CHOLECALCIFEROL 1,000 UNITS 25 MCG TAB PO SCH (08:46)
[2023-04-06] MEDS ORDERED: SODIUM CHLORIDE 0.9% 1,000 ML IV PRN (09:08)
[2023-04-06 10:10] LABS: Hematocrit (blood only) 28.2 % (42.0-52.0); Hemoglobin 9.2 g/dl (14.0-18.0); Mean Corpuscular Hgb Conc 32.6 g/dL (32.0-36.0); Mean Corpuscular Volume 101.1 fL (80.0-100.0); Mean Platelet Volume 9.5 fL (9.4-12.4); Platelet Count 274 K/uL (130-400); RDW Coefficient of Variation 14.4 % (11.5-14.5); RDW Standard Deviation 53.4 fL (36.4-46.3); Red Blood Count 2.79 M/uL (4.70-6.10); White Blood Count 7.36 K/ul (4.8-10.8)
[2023-04-06 10:27] LABS: BUN Creatinine Ratio 9.7 (10-20); Calcium 7.5 mg/dl (8.6-10.3); Creatinine Clr Calc Pharmacy 10.9 ml/min; Est GFR (African American) 9.8 ml/min; Est GFR (Non-African American) 8.5 ml/min; Magnesium 2.3 mg/dl (1.7-2.4); Phosphorus 6.3 mg/dl (2.5-4.9); Potassium 4.8 mmol/L (3.5-5.1)
--- NOTE | 2023-04-06 10:43 | Dialysis Progress Note ---
Date of Service April 06, 2023 Assessment & Plan Admission and Anticipated Discharge Date Admission Date: April 05, 2023 Subjective Assessment & Plan (1) ESRD (end stage renal disease): ERSD on HD MWF Last dialysed on thursday as outpt. Admitted to drinking more than his daily allowance,k safe - Emergent dialysis yesterday for 3 hr with 3 lit UF. - He was hypertensive yesterday but after dialysis with UF and taking his BP meds much better now. Dialysis today 3hrs 2.5 kilo off. S---Seen during dialysis. BP much better now. AVF fine. Physical Exam Physical Exam: Constitutional:Appears in respiratory distress, but alert and oriented Neck: Trachea is midline. Visual inspection is normal. Respiratory: bilateral crackles, poor air entry bilaterally Cardiovascular: Regular rate and rhythm. No murmurs. No edema. Musculoskeletal: No cyanosis. Patient is able to move all extremities. Skin: No rashes, warm dry and intact. Neurologic: No obvious focal neurological deficits seen. Results & Data Vital Signs (Past 12 Hours) Vital Signs Temp Pulse Pulse Resp BP Pulse Ox O2 Del Method 04/06/23 06:49 36.5 C 72 18 157/73 H 95 Room Air 04/06/23 06:35 70 04/06/23 03:10 36.5 C 79 18 151/66 H 95 Nasal Cannula 04/05/23 22:55 36.9 C 70 18 117/63 98 Nasal Cannula O2 Flow Rate 04/06/23 06:49 04/06/23 06:35 04/06/23 03:10 2 04/05/23 22:55 2
[2023-04-06] MEDS: carvediloL 25 MG TAB PO SCH ×2 (14:21→20:47)
[2023-04-06] MEDS: amLODIPine BESYLATE 5 MG TAB PO SCH (14:22)
[2023-04-06] MEDS: hydrALAZINE TAB 50 MG TAB PO SCH ×3 (14:22→20:45)
[2023-04-06] MEDS: HEPARIN SOD 5,000 UNIT/0.5 ML VIAL SQ SCH ×2 (14:23→20:48)
[2023-04-06] MEDS: LOSARTAN POTASSIUM 50 MG TAB PO SCH (14:43)
[2023-04-06] MEDS: MIRTAZAPINE TAB 15 MG TAB PO SCH (20:45)
[2023-04-06] MEDS ORDERED: LACTATED RINGER'S 500 ML IV ONE (22:19)
[2023-04-06] MEDS ORDERED: diphenhydrAMINE 2%/ZINC 0.1% CREAM 28.4GM TUBE EXT PRN (22:20)
[2023-04-07] MEDS: VELPHORO: ORDER AWAITING ACTION SCH ×3 (00:22→13:54)
[2023-04-07] MEDS: NITROGLYCERIN 2% OINTMENT 30GM TUBE EXT SCH ×3 (05:40→17:19)
--- NOTE | 2023-04-07 06:58 | Hospitalist Progress Note ---
Date of Service April 07, 2023 Assessment & Plan (1) Acute respiratory failure with hypoxia: (2) CAD (coronary artery disease): (3) GERD (gastroesophageal reflux disease): (4) ESRD (end stage renal disease): (5) Anxiety: (6) Depression: (7) Lumbar radiculopathy: (8) Anemia of chronic disease: Plan Pt is a 52 yo male with a pertinent past medical history of ESRD with AV fistula on dialysis M/W/F, DMT1, HTN, CAD who presents to the hospital on 04/05 for SOB with fluid overload. #ESRD, HD MWF - pt states he has not missed an dialysis sessions - suspect volume overload in anuric ESRD, unclear why he became volume overloaded at this time, but pt admitted to drinking more than he knows he is suppose to have - nephrology consulted, HD done Thursday and yesterday - will continue to monitor electrolytes daily - dialysis again tomorrow #Hypotension - this afternoon pt had hypotension 89/46 laying down and 93/43 sitting up and felt dizzy - will give 500 mL fluid bolus and hold hydralazine as well as decrease his nighttime coreg dose by 1/2 - pt to get dialysis again tomorrow #DMT1 - continue home insulin glargine 17 units - will add carb ratio today CF/CR 40/15 - goal BSG 120-160 #Acute respiratory failure with hypoxia in the setting of fluid overload, resolved Dry weight 50 kg, pt was 62.8 kg on admission, required 2L O2 initially, - admission Chest x-ray suggestive of mild pulmonary edema consistent with volume overload, BNP is 1557 consistent with volume overload as well - resp failure improved after dialysis done x2, >95% sat on room air and comfortable #CAD (coronary artery disease) If patient has recurrent chest pain or uptrending trop, will repeat a limited echo for wall motion change. Echo 02/26/2023: EF 50-55%, no regional wall motion abnormalities, severe LVH. Continue statin #Hypertension - continue norvasc, coreg, losartan, - hold hydralazine due to hypotension #Anxiety - continue home sertraline, mirtazapine at bedtime Plan DVT prophylaxis: Heparin 5000 units every 12 Diet: DM 1/heart healthy/renal CODE STATUS: Full Admission and Anticipated Discharge Date Admission Date: April 05, 2023 Supervising Physician Co-Signing Physician Notes Attending attestation Pt seen and examined in concert with Dr. River. In agreement with the doc umented findings as noted in the resident documentation with any exceptions or additions as noted here. Resting comfortably in bed, complains of positional lightheadedness which is intermittently a problem for him post-HD but is presently impacting him doing basic activities. On examination, S1/S2 nl RRR no MCG. CTAB. Abd NT/ND BS+ve Orthostatic hypotension - will do 500 cc bolus and re-assess for changes/improvement, monitor closely for fluid status with recent fluid overload down 5+ kg in 2 HD sessions ESRD on HD - nephrology consult - continue HD as noted and monitor BMP, CBC silvino Cr AHRF in the setting of fluid overload - improved following HD DMI - continue basal/bolus insulin regimen and monitor glucose POC Else see resident documentation as noted. Subjective Pt is a 52 yo male with a pertinent past medical history of ESRD with AV fistula on dialysis M/W/F, DMT1, HTN, CAD who presents to the hospital on 04/05 for SOB with fluid overload. Today, pt was seen at bedside and states that he is feeling well. He has no questions or complaints at this time aside from wondering when he will be able to go home. He states he feels about back to his baseline now and has been feeling good since dialysis yesterday. He has tolerated meals without issue. Review of Systems Review of Systems: Constitutional: denies fever, chills, Cardio: denies chest pain, Physical Exam Physical Exam: General:Alert and oriented, no acute distress, HEENT: Normocephalic, moist oral mucosa, Cardio: Regular rate and rhythm, Resp:Lungs clear to auscultation b/l, no wheezes or rhonchi, GI: Soft and nontender, nondistended, bowel sounds active Skin: Warm, pink, dry, Psych: Mood-affect congruence. Results & Data Results & Data Vital Signs (Past 12 Hours) Vital Signs Temp Pulse Pulse Resp BP Pulse Ox O2 Del Method 04/07/23 02:45 36.7 C 66 16 109/62 96 Room Air 04/07/23 01:56 72 04/06/23 22:20 36.8 C 73 16 113/48 L 96 Room Air 04/06/23 21:55 100/52 L 04/06/23 21:51 108/51 L 04/06/23 21:49 75 124/55 L 04/06/23 19:40 36.4 C L 73 16 130/76 93 Room Air Resident Activity Tracking Resident Involvement: Resident Care Provided Care Provided: Adult Hospital Medicine (2) CAD (coronary artery disease) Associated angina: without angina Coronary Disease-Associated Artery/Lesion type: [place] artery [place] vs. transplanted heart: [place] heart Qualified Code(s): I25.10 - Atherosclerotic heart disease of [place] coronary artery without angina pectoris (6) Depression Active/Remission status: remission status unspecified Depression Type: major depressive disorder Major depression recurrence: recurrent Qualified Code(s): F33.9 - Major depressive disorder, recurrent, unspecified
[2023-04-07 07:05] LABS: Hematocrit (blood only) 28.9 % (42.0-52.0); Hemoglobin 9.4 g/dl (14.0-18.0); Mean Corpuscular Hemoglobin 32.4 pg (25.0-34.0); Mean Corpuscular Hgb Conc 32.5 g/dL (32.0-36.0); Mean Corpuscular Volume 99.7 fL (80.0-100.0); Mean Platelet Volume 9.1 fL (9.4-12.4); Platelet Count 261 K/uL (130-400); RDW Coefficient of Variation 14.1 % (11.5-14.5); RDW Standard Deviation 51.8 fL (36.4-46.3)
[2023-04-07 07:42] LABS: Albumin Globulin Ratio 1.4 (0.9-2); Albumin Level 3.7 gm/dl (3.4-5.0); BUN Creatinine Ratio 8.5 (10-20); Bilirubin,Total 0.6 mg/dl (0.2-1.0); Calcium 8.2 mg/dl (8.6-10.3); Creatinine Clr Calc Pharmacy 14.6 ml/min; Est GFR (African American) 14.1 ml/min; Est GFR (Non-African American) 12.2 ml/min; Globulin 2.6 gm/dl (2.5-4.0); Potassium 3.8 mmol/L (3.5-5.1); Total Protein 6.3 gm/dl (6.0-8.3)
[2023-04-07] MEDS: INSULIN ASPART PER UNIT CHARGE SC SCH ×5 (08:27→21:38)
[2023-04-07] MEDS: ATORVASTATIN 10 MG TAB PO SCH (09:01)
[2023-04-07] MEDS: amLODIPine BESYLATE 5 MG TAB PO SCH (09:01)
[2023-04-07] MEDS: carvediloL 25 MG TAB PO SCH (09:01)
[2023-04-07] MEDS: CHOLECALCIFEROL 1,000 UNITS 25 MCG TAB PO SCH (09:02)
[2023-04-07] MEDS: CYANOCOBALAMIN (B-12) 500 MCG TABLET PO SCH (09:02)
[2023-04-07] MEDS: LOSARTAN POTASSIUM 50 MG TAB PO SCH (09:03)
[2023-04-07] MEDS: hydrALAZINE TAB 50 MG TAB PO SCH (09:03)
[2023-04-07] MEDS: FOLIC ACID 1 MG TAB PO SCH (09:03)
[2023-04-07] MEDS: HEPARIN SOD 5,000 UNIT/0.5 ML VIAL SQ SCH ×2 (09:03→20:02)
[2023-04-07] MEDS: PANTOprazole 40 MG TAB PO SCH (09:04)
[2023-04-07] MEDS: minoxidiL 2.5 MG TAB PO SCH (09:04)
[2023-04-07] MEDS: SERTRALINE HCL 50 MG TABLET PO SCH (09:05)
[2023-04-07] MEDS: SERTRALINE HCL 100 MG TABLET PO SCH (09:05)
[2023-04-07] MEDS: LANTUS PER UNIT CHARGE SQ SCH (09:08)
[2023-04-07] MEDS ORDERED: LACTATED RINGER'S 500 ML IV ONE (13:49)
[2023-04-07] MEDS ORDERED: GLUCAGON FOR INJ 1 MG VIAL SQ PRN (13:51)
[2023-04-07] MEDS ORDERED: GLUCOSE 10 TAB/TUBE PO PRN (13:51)
[2023-04-07] MEDS ORDERED: GLUCOSE 40% GEL 15 GM TUBE PO PRN (13:51)
[2023-04-07] MEDS ORDERED: CARBOHYDRATES FOR HYPOGLYCEMIA PO PRN (13:51)
[2023-04-07] MEDS ORDERED: DEXTROSE 50% 50 ML SYRINGE IV PRN (13:51)
[2023-04-07] MEDS: carvediloL 12.5 MG TAB PO SCH (17:43)
[2023-04-07] MEDS: MIRTAZAPINE TAB 15 MG TAB PO SCH (20:01)
[2023-04-08] MEDS: VELPHORO: ORDER AWAITING ACTION SCH ×3 (01:03→16:49)
[2023-04-08 06:20] LABS: Hematocrit (blood only) 28.3 % (42.0-52.0); Hemoglobin 9.1 g/dl (14.0-18.0); Mean Corpuscular Hemoglobin 32.5 pg (25.0-34.0); Mean Corpuscular Hgb Conc 32.2 g/dL (32.0-36.0); Mean Corpuscular Volume 101.1 fL (80.0-100.0); Mean Platelet Volume 9.4 fL (9.4-12.4); Platelet Count 256 K/uL (130-400); RDW Coefficient of Variation 13.6 % (11.5-14.5); RDW Standard Deviation 50.9 fL (36.4-46.3); White Blood Count 6.06 K/ul (4.8-10.8)
[2023-04-08 06:44] LABS: Albumin Globulin Ratio 1.4 (0.9-2); Albumin Level 3.5 gm/dl (3.4-5.0); BUN Creatinine Ratio 8.3 (10-20); Bilirubin,Total 0.5 mg/dl (0.2-1.0); Creatinine Clr Calc Pharmacy 10.3 ml/min; Est GFR (African American) 9.3 ml/min; Globulin 2.5 gm/dl (2.5-4.0); Magnesium 2.4 mg/dl (1.7-2.4); Phosphorus 6.6 mg/dl (2.5-4.9); Potassium 4.1 mmol/L (3.5-5.1)
[2023-04-08] MEDS ORDERED: EPOETIN ALFA 10,000 UNITS/ML VIAL IV SCH (07:00)
[2023-04-08] MEDS ORDERED: SODIUM CHLORIDE 0.9% 1,000 ML IV PRN (07:00)
--- NOTE | 2023-04-08 07:02 | Hospitalist Progress Note ---
Date of Service April 08, 2023 Assessment & Plan (1) Acute respiratory failure with hypoxia: (2) CAD (coronary artery disease): (3) GERD (gastroesophageal reflux disease): (4) ESRD (end stage renal disease): (5) Anxiety: (6) Depression: (7) Lumbar radiculopathy: (8) Anemia of chronic disease: Plan Pt is a 52 yo male with a pertinent past medical history of ESRD with AV fistula on dialysis M/W/F, DMT1, HTN, CAD who presents to the hospital on 04/05 for SOB with fluid overload. Today, had nurse walk pt in the afternoon after dialysis due to hypotension noted yesterday. Nurse noted that patient could barely make it to the doorway, as he nearly fell twice. Pt did not have any chest pain or SOB, did not feel like he was going to pass out. Vitals were stable throughout. The issue is believed to be secondary to deconditioning, so will get PT/OT to come evaluate pt. #ESRD, HD MWF - pt states he has not missed an dialysis sessions - suspect volume overload in anuric ESRD, unclear why he became volume overloaded at this time, but pt admitted to drinking more than he knows he is suppose to have - nephrology consulted, HD done Thursday and yesterday - will continue to monitor electrolytes daily - dialysis again today #Hypotension - yesterday afternoon pt had hypotension 89/46 laying down and 93/43 sitting up and felt dizzy - pt to got dialysis today - pressures today after dialysis have been 100-130s systolic, better #DMT1 - continue home insulin glargine 17 units - will add carb ratio today CF/CR 40/15 - goal BSG 120-160 #Acute respiratory failure with hypoxia in the setting of fluid overload, resolved Dry weight 50 kg, pt was 62.8 kg on admission, required 2L O2 initially, - admission Chest x-ray suggestive of mild pulmonary edema consistent with volume overload, BNP is 1557 consistent with volume overload as well - resp failure improved after dialysis done x2, >95% sat on room air and comfortable #CAD (coronary artery disease) If patient has recurrent chest pain or uptrending trop, will repeat a limited echo for wall motion change. Echo 02/26/2023: EF 50-55%, no regional wall motion abnormalities, severe LVH. Continue statin #Hypertension - continue norvasc, coreg, losartan, - hold hydralazine due to hypotension #Anxiety - continue home sertraline, mirtazapine at bedtime Plan DVT prophylaxis: Heparin 5000 units every 12 Diet: DM 1/heart healthy/renal CODE STATUS: Full Admission and Anticipated Discharge Date Admission Date: April 05, 2023 Supervising Physician Co-Signing Physician Notes Attending attestation Pt seen and examined in concert with Dr. River. In agreement with the documented findings as noted in the resident documentation with any exceptions or additions as noted here. Ongoing positional lightheadedness post hemodialysis which is impacting his ability to safely ambulate. Improved overall from yesterday but persistent. On examination, S1/S2 nl RRR no MCG. CTAB. Abd NT/ND BS+ve Orthostatic hypotension - monitor closely for fluid status with recent fluid overload - consider small bolus with SBP < 100, holding hydralazine and d/c'd nitropaste from admission. Consider decrease losartan o/n if pressures remain low. ESRD on HD - nephrology consult - continue HD as noted and monitor BMP, CBC silvino Cr AHRF in the setting of fluid overload - improved following HD DMI - continue basal/bolus insulin regimen and monitor glucose POC Else see resident documentation as noted. Subjective Pt is a 52 yo male with a pertinent past medical history of ESRD with AV fistula on dialysis M/W/F, DMT1, HTN, CAD who presents to the hospital on 04/05 for SOB with fluid overload. Today, pt states that he was feeling well this morning. No complaints noted. He states again that he would like to go home today if possible after dialysis. Review of Systems Review of Systems: Constitutional: denies fever, chills, Cardio: denies chest pain, Physical Exam Physical Exam: General:Alert and oriented, no acute distress, HEENT: Normocephalic, Cardio: Regular rate and rhythm, Resp:Lungs clear to auscultation b/l, no wheezes or rhonchi, Skin: Warm, pink, dry, Psych: Mood-affect congruence. Results & Data Results & Data Vital Signs (Past 12 Hours) Vital Signs Temp Pulse Pulse Resp BP Pulse Ox O2 Del Method 04/08/23 03:37 36.8 C 75 17 134/53 L 97 Room Air 04/08/23 02:33 68 10/31/23 23:12 36.9 C 70 17 100/49 L 95 Room Air 04/07/23 19:30 36.8 C 67 18 113/57 L 98 Room Air Resident Activity Tracking Resident Involvement: Resident Care Provided Care Provided: Adult Hospital Medicine (2) CAD (coronary artery disease) Associated angina: without angina Coronary Disease-Associated Artery/Lesion type: [place] artery [place] vs. transplanted heart: [place] heart Qualified Code(s): I25.10 - Atherosclerotic heart disease of [place] coronary artery w ithout angina pectoris (6) Depression Active/Remission status: remission status unspecified Depression Type: major depressive disorder Major depression recurrence: recurrent Qualified Code(s): F33.9 - Major depressive disorder, recurrent, unspecified
[2023-04-08] MEDS: SERTRALINE HCL 50 MG TABLET PO SCH (08:17)
[2023-04-08] MEDS: amLODIPine BESYLATE 5 MG TAB PO SCH (08:17)
[2023-04-08] MEDS: CYANOCOBALAMIN (B-12) 500 MCG TABLET PO SCH (08:17)
[2023-04-08] MEDS: minoxidiL 2.5 MG TAB PO SCH (08:17)
[2023-04-08] MEDS: CHOLECALCIFEROL 1,000 UNITS 25 MCG TAB PO SCH (08:17)
[2023-04-08] MEDS: LOSARTAN POTASSIUM 50 MG TAB PO SCH (08:17)
[2023-04-08] MEDS: PANTOprazole 40 MG TAB PO SCH (08:18)
[2023-04-08] MEDS: HEPARIN SOD 5,000 UNIT/0.5 ML VIAL SQ SCH ×2 (08:18→22:05)
[2023-04-08] MEDS: ATORVASTATIN 10 MG TAB PO SCH (08:18)
[2023-04-08] MEDS: FOLIC ACID 1 MG TAB PO SCH (08:18)
[2023-04-08] MEDS: SERTRALINE HCL 100 MG TABLET PO SCH (08:18)
[2023-04-08] MEDS: INSULIN ASPART PER UNIT CHARGE SC SCH ×4 (08:25→21:08)
[2023-04-08] MEDS: LANTUS PER UNIT CHARGE SQ SCH (08:26)
--- NOTE | 2023-04-08 10:50 | Dialysis Progress Note ---
Date of Service April 08, 2023 Assessment & Plan Admission and Anticipated Discharge Date Admission Date: April 05, 2023 Subjective Assessment & Plan (1) ESRD (end stage renal disease): ERSD on HD MWF Last dialyzed on thursday as outpt. Admitted to drinking more than his daily allowance,k safe - Emergent dialysis Thursday and then regular on thursday - He was hypertensive yesterday but after dialysis with UF and taking his BP meds much better now. Dialysis today 3.5 hrs 2.2 kilo off. S---Seen during dialysis. BP now actually low from very very high before. AVF fine. Physical Exam Physical Exam: Constitutional:Appears in respiratory distress, but alert and oriented Neck: Trachea is midline. Visual inspection is normal. Respiratory: Clear Cardiovascular: Regular rate and rhythm. No murmurs. No edema. Musculoskeletal: No cyanosis. Patient is able to move all extremities. Skin: No rashes, warm dry and intact. Neurologic: No obvious focal neurological deficits seen. Results & Data Vital Signs (Past 12 Hours) Vital Signs Temp Pulse Pulse Resp BP Pulse Ox O2 Del Method 04/08/23 03:37 36.8 C 75 17 134/53 L 97 Room Air 04/08/23 02:33 68 04/07/23 23:12 36.9 C 70 17 100/49 L 95 Room Air
[2023-04-08] MEDS: carvediloL 12.5 MG TAB PO SCH ×2 (11:24→16:48)
[2023-04-08] MEDS: MIRTAZAPINE TAB 15 MG TAB PO SCH (22:05)
--- NOTE | 2023-04-09 06:52 | Hospitalist Progress Note ---
Date of Service April 09, 2023 Assessment & Plan (1) Acute respiratory failure with hypoxia: (2) CAD (coronary artery disease): (3) GERD (gastroesophageal reflux disease): (4) ESRD (end stage renal disease): (5) Anxiety: (6) Depression: (7) Lumbar radiculopathy: (8) Anemia of chronic disease: Plan Pt is a 52 yo male with a pertinent past medical history of ESRD with AV fistula on dialysis M/W/F, DMT1, HTN, CAD who presents to the hospital on 04/05 for SOB with fluid overload. Today, had nurse walk pt in the afternoon after dialysis due to hypotension noted yesterday. Nurse noted that patient could barely make it to the doorway, as he nearly fell twice. Pt did not have any chest pain or SOB, did not feel like he was going to pass out. Vitals were stable throughout. The issue is believed to be secondary to deconditioning, so will get PT/OT to come evaluate pt. #ESRD, HD MWF - pt states he has not missed an dialysis sessions - suspect volume overload in anuric ESRD, unclear why he became volume overloaded at this time, but pt admitted to drinking more than he knows he is suppose to have - nephrology consulted, HD done Thursday and yesterday - will continue to monitor electrolytes daily - dialysis again today #Hypotension - yesterday afternoon pt had hypotension 89/46 laying down and 93/43 sitting up and felt dizzy - pt to got dialysis today - pressures today after dialysis have been 100-130s systolic, better #DMT1 - continue home insulin glargine 17 units - will add carb ratio today CF/CR 40/15 - goal BSG 120-160 #Acute respiratory failure with hypoxia in the setting of fluid overload, resolved Dry weight 50 kg, pt was 62.8 kg on admission, required 2L O2 initially, - admission Chest x-ray suggestive of mild pulmonary edema consistent with volume overload, BNP is 1557 consistent with volume overload as well - resp failure improved after dialysis done x2, >95% sat on room air and comfortable #CAD (coronary artery disease) If patient has recurrent chest pain or uptrending trop, will repeat a limited echo for wall motion change. Echo 02/26/2023: EF 50-55%, no regional wall motion abnormalities, severe LVH. Continue statin #Hypertension - continue norvasc, coreg, losartan, - hold hydralazine due to hypotension #Anxiety - continue home sertraline, mirtazapine at bedtime Plan DVT prophylaxis: Heparin 5000 units every 12 Diet: DM 1/heart healthy/renal CODE STATUS: Full Admission and Anticipated Discharge Date Admission Date: April 05, 2023 Subjective Pt is a 52 yo male with a pertinent past medical history of ESRD with AV fistula on dialysis M/W/F, DMT1, HTN, CAD who presents to the hospital on 04/05 for SOB with fluid overload. Today, Review of Systems Review of Systems: Constitutional: denies fever, chills, Cardio: denies chest pain, Physical Exam Physical Exam: General:Alert and oriented, no acute distress, HEENT: Normocephalic, Cardio: Regular rate and rhythm, Resp:Lungs clear to auscultation b/l, no wheezes or rhonchi, Skin: Warm, pink, dry, Psych: Mood-affect congruence. Results & Data Results & Data Vital Signs (Past 12 Hours) Vital Signs Temp Pulse Pulse Pulse Resp BP Pulse Ox 04/09/23 04:50 36.9 C 79 18 130/60 98 04/08/23 23:05 37.3 C 76 18 119/50 L 96 04/08/23 21:59 72 04/08/23 19:01 36.6 C 71 17 101/61 96 O2 Del Method 04/09/23 04:50 Room Air 04/08/23 23:05 Room Air 04/08/23 21:59 04/08/23 19:01 Room Air (2) CAD (coronary artery disease) Coronary Disease-Associated Artery/Lesion type: [place] artery [place] vs. transplanted heart: [place] heart Associated angina: without angina Qualified Code(s): I25.10 - Atherosclerotic heart disease of [place] coronary artery without angina pectoris (6) Depression Depression Type: major depressive disorder Major depression recurrence: recurrent Active/Remission status: remission status unspecified Qualified Code(s): F33.9 - Major depressive disorder, recurrent, unspecified
[2023-04-09 08:38] LABS: Hematocrit (blood only) 31.3 % (42.0-52.0); Mean Corpuscular Hemoglobin 32.6 pg (25.0-34.0); Mean Corpuscular Hgb Conc 31.9 g/dL (32.0-36.0); Mean Platelet Volume 9.2 fL (9.4-12.4); Platelet Count 263 K/uL (130-400); RDW Coefficient of Variation 13.9 % (11.5-14.5); RDW Standard Deviation 51.8 fL (36.4-46.3); Red Blood Count 3.07 M/uL (4.70-6.10); White Blood Count 5.86 K/ul (4.8-10.8)
[2023-04-09 08:53] LABS: Magnesium 2.3 mg/dl (1.7-2.4); Phosphorus 5.2 mg/dl (2.5-4.9)
[2023-04-09] MEDS ORDERED: amLODIPine BESYLATE 5 MG TAB PO SCH (09:00)
[2023-04-09] MEDS ORDERED: NEPHROCAPS PO SCH (09:00)
[2023-04-09] MEDS ORDERED: LOSARTAN POTASSIUM 50 MG TAB PO SCH (09:00)
[2023-04-09] MEDS: SERTRALINE HCL 50 MG TABLET PO SCH (09:34)
[2023-04-09] MEDS: ATORVASTATIN 10 MG TAB PO SCH (09:36)
[2023-04-09] MEDS: minoxidiL 2.5 MG TAB PO SCH (09:36)
[2023-04-09] MEDS: SERTRALINE HCL 100 MG TABLET PO SCH (09:36)
[2023-04-09] MEDS: FOLIC ACID 1 MG TAB PO SCH (09:37)
[2023-04-09] MEDS: PANTOprazole 40 MG TAB PO SCH (09:37)
[2023-04-09] MEDS: carvediloL 12.5 MG TAB PO SCH (09:37)
[2023-04-09] MEDS: CHOLECALCIFEROL 1,000 UNITS 25 MCG TAB PO SCH (09:37)
[2023-04-09] MEDS: CYANOCOBALAMIN (B-12) 500 MCG TABLET PO SCH (09:38)
[2023-04-09] MEDS: HEPARIN SOD 5,000 UNIT/0.5 ML VIAL SQ SCH (09:39)
[2023-04-09] MEDS: LANTUS PER UNIT CHARGE SQ SCH (09:50)
[2023-04-09] MEDS: INSULIN ASPART PER UNIT CHARGE SC SCH ×2 (09:50→13:51)
--- NOTE | 2023-04-09 09:57 | Nephrology Progress Note ---
Date of Service April 09, 2023 Assessment & Plan Admission and Anticipated Discharge Date Admission Date: April 05, 2023 Subjective Assessment & Plan (1) ESRD (end stage renal disease): ERSD on HD MWF - Emergent dialysis Thursday and then regular on thursday/thursday HTN: Bp was very high on Admission but now with enough fluid removal BP is running low. Does not seem to need all these BP meds so will stop Minoxidil ( most likely agent to cause edema/fluid retention) Continue the rest. Not entirely clear whether he was taking all his BP meds as rxed. S---Bp was low and felt lightheaded and almost fell after dialysis. AVF fine. Physical Exam Physical Exam: Constitutional:Appears in respiratory distress, but alert and oriented Neck: Trachea is midline. Visual inspection is normal. Respiratory: Clear Cardiovascular: Regular rate and rhythm. No murmurs. No edema. Musculoskeletal: No cyanosis. Patient is able to move all extremities. Skin: No rashes, warm dry and intact. Neurologic: No obvious focal neurological deficits seen. Results & Data Vital Signs (Past 12 Hours) Vital Signs Temp Pulse Pulse Pulse Resp BP Pulse Ox 04/09/23 08:44 36.5 C 84 88 20 100/56 L 96 04/09/23 04:50 36.9 C 79 18 130/60 98 04/08/23 23:05 37.3 C 76 18 119/50 L 96 04/08/23 21:59 72 O2 Del Method 04/09/23 08:44 Room Air 04/09/23 04:50 Room Air 04/08/23 23:05 Room Air 04/08/23 21:59
[2023-04-09 11:53] LABS: Albumin Globulin Ratio 1.4 (0.9-2); Albumin Level 3.7 gm/dl (3.4-5.0); BUN Creatinine Ratio 7.1 (10-20); Bilirubin,Total 0.4 mg/dl (0.2-1.0); Calcium 8.3 mg/dl (8.6-10.3); Creatinine Clr Calc Pharmacy 13.9 ml/min; Est GFR (Non-African American) 11.2 ml/min; Globulin 2.7 gm/dl (2.5-4.0); Potassium 4.1 mmol/L (3.5-5.1); Total Protein 6.4 gm/dl (6.0-8.3)
--- NOTE | 2023-04-09 13:39 | Discharge Summary ---
Date of Service April 09, 2023 Admission HPI Per Admitting Provider Jorge Alberto De Los Santos is a 52-year-old male with a past medical history of gastroparesis, type 1 diabetes mellitus with CKD/nephropathy/retinopathy and ESRD through AV fistula, anemia of chronic disease, lumbar radiculopathy who presented for shortness of breath/orthopnea with acute worsening several hours prior to presentation to the ER. He is typically on Thursday dialysis and has not missed any dialysis, and has not had any salt indiscretion. He has not had fever/chills/sweats or cold-like symptoms. In the ER patient was found to have first-degree AV block but no ST segment changes, T wave inve rsion was noted in lead I/aVL. Chest x-ray shows mild interstitial edema. Patient labs were delayed due to difficult access and ultrasound-guided IV was required from IV team. They subsequently showed potassium 4.4, BNP 1557, troponin 21.9. Bio fire negative. BSG 107, bicarb is not suppressed. Patient is recommended for admission for orthopnea and suspected volume overload in the setting of dialysis dependence. Current weight Kg 62.8, dry weight ~58kg Admission Exam Per Admitting Provider General: A&Ox3. NAD. Cooperative. HEENT: Atraumatic, normocephalic. Pupils equal and reactive to light. Vision and hearing grossly intact Pulm: Diminished in the bases, trace bibasilar crackles which cleared on deep. Symmetrical chest rise. No increased work of breathing. No respiratory distress. Cardiac: RRR, -mrg. Radial pulses intact and symmetrical. JVD ~2cm above the clavicle which raises to the angle of the mandible on HJR. No pitting edema of the lower extremities is present Abdominal: Nontender, nondistended, soft. BS present. Ext: warm, dry. No pitting edema. Left AV fistula is intact, good thrill. No overlying warmth, tenderness, erythema Principal Diagnosis End stage renal disease MWF presenting with fluid overload Discharge Exam General:Alert and oriented, no acute distress, HEENT: Normocephalic, Cardio: Regular rate and rhythm, Resp:Lungs clear to auscultation b/l, no wheezes or rhonchi, Skin: Warm, pink, dry, Psych: Mood-affect congruence. Discharge Data Allergies Allergy/AdvReac Type Severity Reaction Status Date / Time shellfish derived Allergy Severe anaphylaxis Verified 03/30/23 14:04 codeine Allergy Intermediate Hives Verified 03/30/23 14:04 promethazine Allergy Intermediate itchy/hives Verified 03/30/23 14:04 Consultations 04/05/23 09:15 Consult Nephrology Stat 04/05/23 09:19 ED Decision to Admit Stat Hospital Course (1) Acute respiratory failure with hypoxia: (2) CAD (coronary artery disease): (3) GERD (gastroesophageal reflux disease): (4) ESRD (end stage renal disease): (5) Anxiety: (6) Depression: (7) Lumbar radiculopathy: (8) Anemia of chronic disease: Plan Pt is a 52 yo male with a pertinent past medical history of ESRD with AV fistula on dialysis M/W/F, DMT1, HTN, CAD who presents to the hospital on 04/05 for SOB with fluid overload. PT/OT evaluated pt today for concerns of deconditioning, pt cleared by them to be discharged home. He lives at home with his parents and was functionally independent prior to admission. #ESRD, HD MWF - pt states he has not missed an dialysis sessions - suspect volume overload in anuric ESRD, unclear why he became volume overloaded at this time, but pt admitted to drinking more than he knows he is suppose to have - nephrology consulted, HD done Thursday and yesterday, then back on usual schedule - pt to have dialysis again tomorrow outpatient as usual #Hypotension - pt had multiple episodes during his admission of hypotension 80-90s/40-50s - pt had been on multiple BP meds on admission, - hydralazine, losartan and amlodipine all discontinued - will cut his coreg dose in half to 12.5 mg BID and advised pt to follow-up with PCP and to take his BP twice daily at home until then to evaluate need for the removed medications - pressures today have been stable #DMT1 - continue home insulin glargine 17 units - will add carb ratio today CF/CR 40/15 - goal BSG 120-160 - pt to resume his home regime on discharge #Acute respiratory failure with hypoxia in the setting of fluid overload, resolved Dry weight 50 kg, pt was 62.8 kg on admission, required 2L O2 initially, - admission Chest x-ray suggestive of mild pulmonary edema consistent with volume overload, BNP is 1557 consistent with volume overload as well - resp failure improved after dialysis done x2, >95% sat on room air and comfortable #CAD (coronary artery disease) If patient has recurrent chest pain or uptrending trop, will repeat a limited echo for wall motion change. Echo 02/26/2023: EF 50-55%, no regional wall motion abnormalities, severe LVH. Continue statin #Hypertension - see note above for new BP regime due to hypotension - pt to be on coreg 12.5 mg BID only upon discharge, which was sent to the pharmacy #Anxiety - continue home sertraline, mirtazapine at bedtime DVT prophylaxis: Heparin 5000 units every 12 Diet: DM 1/heart healthy/renal CODE STATUS: Full Total Time Total Time Spent Total Time Spent (In Minutes): As per attending attestation. Discharge Plan Discharge Items Patient Disposition: Home - Self-Care Reason For Visit: ORTHOPNEA / SOB Discharge Diagnosis: ESRD with fluid overload Activity: Per Instructions section Non-emergency contact: Primary Care Provider and Stock Digger Call non-emergency contact if: you have any medication questions Follow-up/Referrals: Jessy Gillespie PA-C [Physician Attendant Child Activity] - 04/13/23 10:30 am Diet: Dialysis Renal Addtl Attending Provider Instructions: You were admitted for fluid overload in the setting of end stage renal disease on hemodialysis . You were treated with 2 rounds of dialysis in a row to pull off the extra fluid, followed by continuation of dialysis on your typical schedule. As your symptoms have improved, we feel it is safe for you to return home. It is imperative that you maintain your fluid restriction and attend dialysis 3 times a week to avoid getting fluid overloaded in the future. We also recommend that you take your blood pressure 2 times daily and record the numbers to take with you when you next see your primary care physician. Medications: Your medication list has been reviewed and reconciled upon discharge to ensure accuracy and continuity of care. An updated list of all your medications is included with your hospital discharge paperwork. Please review this list closely, and make note of any changes. You are to STOP TAKING your hydralazine, amlodipine and losartan, and DECREASE your Coreg to 12.5 mg twice daily (you were on 25 mg twice daily). A new prescription was sent to your pharmacy for your Coreg. We have adjusted these medications since your blood pressure here was low. If you have any issues filling these prescriptions, please call [phone] and ask to leave a message for Dr. River. Take your medications as instructed; do not skip a dose of your medicines. Make sure all of your doctors know every medicine you are taking (including peal-csb-gyrlsvr medicines, vitamins, and supplements). Call your primary care provider before taking any new medicines (including over- the-counter medicines, vitamins, and supplements), because some of these may interact with your current medications, or may make your symptoms worse. Tell your primary care provider if you cannot afford your medications. Activity: You can do normal everyday activities as your body allows. Take rest breaks if you feel tired. Do not overexert. Stop activity if you have pain, shortness of breath or feel dizzy. Follow-up appointments: Make an appointment with your primary care physician within one week of discharge. A copy of this summary will be sent to them. Every time you see your primary care physician, or any other doctor, bring your medication list, a list of questions, and your recent weights. CONTACT YOUR PRIMARY CARE PROVIDER if you experience any of the following: Shortness of breath or difficulty breathing Swelling of your feet, ankles, hands or abdomen Feeling tired with normal activity or experiencing dizziness or fainting Difficulty following your treatment plan, or difficulty taking medications If your blood pressure is over 180/90 WITHOUT symptoms of headache, chest pain, shortness of breath, or blurry vision CALL 911 OR GO TO THE EMERGENCY DEPARTMENT if you experience any of the following: Severe abdominal pain or nausea/vomiting Severe chest pain, or chest pain that radiates (moves) to your jaw or arm Sudden, severe shortness of breath or difficulty breathing If your blood pressure is over 180/90 WITH symptoms of headache, chest pain, shortness of breath, or blurry vision Thank you for allowing us to participate in your care. Pending Studies at Discharge: No Stand-Alone Forms: My [facility] Medications and DC Order Prescriptions: New carvedilol [Coreg] 12.5 mg tablet 12.5 mg PO BID Qty: 30 3RF Rx Instructions: must administer with a meal/food Continued acetaminophen 325 mg capsule 650 mg PO Q4H PRN (Reason: Pain (Scale Score 1-3)) lorazepam 0.5 mg tablet 0.5 mg PO Q6H PRN (Reason: Anxiety) Qty: 60 0RF atorvastatin 10 mg tablet 10 mg PO QAM Qty: 90 1RF (DME) pen needle, diabetic [Comfort EZ Pen [place]] 31 gauge x 5/16" needle See Rx Instructions .Route Qty: 500 3RF Rx Instructions: use 5 per day with insulin injections insulin glargine [Basaglar KwikPen U-100 Insulin] 100 unit/mL (3 mL) insulin pen 17 unit SUBCUT QAM MDD 17 Qty: 15 3RF mirtazapine 7.5 mg tablet 7.5 mg PO HS midodrine 5 mg tablet 5 mg PO .COMPLEX Rx Instructions: 5 mg orally as needed at dialysis; Novolin R FlexPen 100 unit/mL (3 mL) insulin pen 30 unit subcut DAILY Qty: 15 5RF ondansetron HCl 4 mg tablet 8 mg PO Q4 PRN (Reason: nausea or vomiting) Qty: 60 2RF melatonin 1 mg tablet 4 mg PO HS PRN (Reason: Sleep) pantoprazole [Protonix] 40 mg tablet,delayed release (DR/EC) 40 mg PO QAM Qty: 30 1RF sertraline 100 mg tablet 100 mg PO QAM Rx Instructions: TOTAL DOSE 125 MG--TAKES WITH 25 MG TAB. sertraline 25 mg tablet 25 mg PO QAM Rx Instructions: TOTAL DOSE 125 MG--TAKES WITH 100 MG TAB. Velphoro 500 mg tablet,chewable 1,000 mg PO TIDM cholecalciferol (vitamin D3) [Vitamin D3] 50 mcg (2,000 unit) capsule 50 mcg PO QAM minoxidil 2.5 mg tablet 5 mg PO DAILY cyanocobalamin (vitamin B-12) 1,000 mcg capsule 1,000 mcg PO DAILY Qty: 30 0RF Rx Instructions: OTC folic acid 1 mg Tablet 1 mg PO QAM Qty: 30 0RF Rx Instructions: OTC Discontinued losartan 100 mg tablet 100 mg PO QAM Qty: 90 3RF carvedilol 25 mg tablet 25 mg PO BID Rx Instructions: TAKE THIS MEDICATION WITH FOOD hydralazine 50 mg tablet 50 mg PO TID amlodipine 10 mg tablet 10 mg PO QAM Discharge Orders: Discharge Order (Routine); Ordered 04/09/23 Ordered By: Ana E Breindel Admission Data Admit Date/Time: 04/05/23 09:56 Attending Provider: Dewayne Hayes Admit Provider: Obie Argueta Primary Care Provider: Genet Cool Other Providers: Obie Argueta; Abelino Cook Other Interventions: Discharge Summary Assessment (RN) Last Done: 04/09/23 14:01 Supervising Physician Co-Signing Physician Notes Attending attestation Pt seen and examined in concert with Dr. River. In agreement with the documented findings as noted in the resident documentation with any exceptions or additions as noted here. Resolved positional orthostasis and engaged w/ PT who noted tolerated well and safe for home. On examination, S1/S2 nl RRR no MCG. CTAB. Abd NT/ND BS+ve Orthostatic hypotension w/ h/o resistant HTN - significant change in BP medications due to low BP as noted, now on carvedilol. HBPM and close monitoring with PCP to restart with increasing BP w/ resumption of intake ESRD on HD - nephrology consult - resume outpatient dialysis MWF DMI - resume outpatient glycemic control regimen Else see resident documentation as noted. Total attending physician time spent with this patient's care on the day of discharge: 35 minutes. Resident Activity Tracking Resident Involvement: Resident Care Provided Care Provided: Adult Hospital Medicine
== END 2023-04-09 15:57 | disposition home or self-care (01) | DRG 640 ==
LOC: ED 04:32 → SUATTDRO 09:56 → 2S 09:56

== ENCOUNTER 2023-08-16 18:38 | Inpatient (IN) ==
--- OUTSIDE RECORDS SUMMARY | 2023-08-16 18:44 | External Medical Summary | Summary of Care ---
Author Name Unknown Organization [facility] Address [address] [place] [address] Phone [phone] Care Team Providers Care Tunnel Miner Name Role Phone Genet Cool MD Primary Care Provid er Encounter Details Date Type Department Care Team (Late st Contact Info) Description 08/06/2023 9:30 AM EST Procedure Only Endoscopy, [facility] [address] [place] [address] Tim Browne MD [address] [place] [address] Allergies Active Allergy Reactions Criticality Noted Date Comments Codeine Itching 05/24/2019 Promethazine Hcl Hives 10/19/2010 Shellfish-Derived Products Anaphylaxis High 04/26/20 18 documented as of this encounter (statuses as of 08/12/2023) Medications Medication Sig Dispensed Refills Start Date End Date Status [facility] STRPIndications:DKA, type 1 (HCC),DM type 1 causing renal disease, not at goal (HCC) check your urine if you feel your sugar is too high and you feel dried up 10 Strip 0 09/21/2013 Active ONETOUCH DELICA LANCETS FINE MISCIndications:DKA, type 1 (HCC) use 4 times a day as instructed 100 Units 0 09/21/2013 Active BANDAR CONTOUR NEXT TEST STRPIndications:Type I (juvenile type) diabetes mellitus without mention of complication, not stated as uncontrolled for glucose testing 6-8 x day with contour next link meter for minimed pump 650 Strip 3 11/03/2013 Active LORAzepam (ATIVAN) 0.5 MG Tablet Take 1 Tablet by mouth every 12 hours as needed for Anxiety. 0 05/07/2015 Active Acetaminophen 325 MG CAPS Take 2 Tabs by mouth as needed. 0 Active atorvaSTATin (LIPITOR) 10 MG Tablet Take 1 Tablet by mouth in the morning. 0 12/15/2018 Active Cholecalciferol (VITAMIN D3) 2000 units Capsule Take 1 Capsule by mouth in the morning. 0 12/16/2018 Active B Gdmxjov-V-Zlryh Acid (RENAL VITAMIN) 1 MG Capsule TAKE 1 CAPSULE BY MOUTH EVERY DAY 90 Cap 3 08/01/2019 Active Carvedilol 25 MG Oral Tablet (COREG) Take 1 Tablet by mouth 2 times a day with morning and evening meals. 2 05/29/2020 Active Pantoprazole Sodium 40 MG Oral Tablet Delayed Release (Protonix) Take 1 Tab by mouth 2 times a day. 60 Tab 1 09/27/2020 Active Basaglar KwikPen 100 UNIT/ML Subcutaneous Solution Pen-injector (Insulin Glargine) Inject 12 Units under the skin in the morning. 0 Active Melatonin 3 MG Oral Tablet Take 1 Tablet by mouth at bedtime. 0 Active Velphoro 500 MG Oral Tablet Chewable (Sucroferric Oxyhydroxide) Take 2 tabs with meals 180 Tablet 6 06/22/2021 Active BD Pen Needle Annalise 2nd Gen 32G X 4 MM USE 5 PER DAY WITH INSULIN INJECTIONS 0 09/11/2021 Active Sertraline HCl 25 MG Oral Tablet (Zoloft) Take 1 Tablet by mouth in the morning. 0 11/11/2021 Active amLODIPine Besylate 10 MG Oral Tablet (Norvasc) 90 Tablet 2 06/26/2022 Active Midodrine HCl 5 MG Oral Tablet (Proamatine) PLEASE SEE ATTACHED FOR DETAILED DIRECTIONS 0 05/14/2022 Active Trimethobenzamide HCl 300 MG Oral Capsule Take 1 Capsule by mouth in the morning and 1 Capsule at noon and 1 Capsule before bedtime. NEEDED FOR NAUSEA . 30 Capsule 0 09/16/2022 Active Ondansetron HCl 8 MG Oral Tablet Take 1 Tablet by mouth every 8 hours as needed for Nausea. 20 Tablet 0 10/17/2022 Active Mirtazapine 7.5 MG Oral Tablet (Remeron) Take 1 Tablet by mouth at bedtime. 0 11/10/2022 Active Diclofenac Sodium 1 % External Gel Apply topically to affected area. Daily as needed per patient 0 Active BD Pen Needle Mini U/F 31G X 5 MM 0 12/10/2022 Active LORazepam 0.5 MG Oral Tablet (Ativan) Take 1 Tablet by mouth every 8 hours as needed for Other (nausea). 6 Tablet 0 04/18/2023 Active NovoLIN N 100 UNIT/ML Subcutaneous Suspension (insulin isophane human) Inject under the skin three times a day before meals. 0 Active Aprepitant 80 MG Oral Capsule (Emend) TAKE 1 CAPSULE (80 MG TOTAL) BY MOUTH DAILY NEEDED (NAUSEA AND/OR VOMITING) 0 06/15/2023 Active Sertraline HCl 100 MG Oral Tablet (Zoloft) Take 1 Tablet by mouth in the morning. 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 09/14/2022 Hx of diabetic gastroparesis 09/14/2022 Single subsegmental pulmonar y embolism without acute cor pulmonale 11/15/2020 Pericardial effusion 11/15/2020 Recurrent pleural effusion on left 11/15/2020 Pyloric stenosis in adult 10/20/2020 History of Clostridioides difficile infection Stool culture positive for Clostridium difficile 10/20/2020 Severe malnutrition 09/26/2020 Thrush 09/25/2020 Metabolic alkalosis 09/21/2020 Intractable nausea and vomiting 07/13/2020 Vitreous hemorrhage of left eye 03/16/2020 ESRD on dialysis 11/05/2018 Gastroparesis 05/14/2016 Hydronephrosis with ureteral calculus 03/15/2016 Acute pyelonephritis 03/15/2016 T12 compression fracture 03/15/2016 ETOH abuse 04/05/2012 Overview: [facility] Admission with DKA March 2012 DKA, type 1 10/21/2010 Hypophosphatemia 10/21/2010 Hypomagnesemia 10/21/2010 Dyslipidemia, goal LDL below 100 05/15/2009 Overview: Per Lipid Taxonomy. For someone with Diabetes Type 1 diabetes mellitus wit h hemoglobin A1c goal of less than 7.0% 03/22/2009 Overview: Modified per Diabetes protocol #14. ICD-10 update of inactive term Hematemesis 11/22/2008 ADVANCE DIRECTIVE INFORMATION 10/20/2007 Overview: No, Advance Directive brochure offered , patient declined. Anxiety state 12/20/2003 Calcium nephrolithiasis 12/20/2003 Overview: Calcium oxalate kidney stones DM type 1 causing renal disease, not at goal documented as of this encounter (statuses as of 08/12/2023) Resolved Problems Problem Noted Date Diagnosed Date Resolved Date Intractable nausea and vomiting 09/14/2022 09/16/2022 Prolonged Q-T interval on ECG 09/14/2022 09/16/2022 Hypertensive urgency 09/14/2022 023 Rigors 10/20/2020 10/25/2020 Severe sepsis with acute organ dysfunction 10/20/2020 10/25/2020 Hypertensive emergency 10/20/202010/25 Nausea and vomiting 11/22/2008 07/01/19 24 Overview: ICD-10 update of inactive term Diarrhea 11/22/2008 09/16/2022 Dyslipidemia, goal LDL below 160 05/28/2005 05/15/2009 Overview: Per Lipid Taxonomy. For someone with Diabetes DM type 1, not at goal 12/20/200303/22 Overview: Modified per Diabetes protocol #14. documented as of this encounter (statuses as of 08/12/2023) Immunizations Name Administration Dates Next Due COVID-19 mRNA, LNP-s, No Pre serve, 2-Dose Series (Moderna) 08/10/2020,07/17/2020 PPD 06/18/2009,04/03/2008 Pneumococcal Polysaccharide PPV23 (Pneumovax) 04/05/2012,03/31/2007 Season Influenza, Quad, PF, Adjuvanted, 65+ Yrs, IM (FLUAD) 03/25/2021,04/18/2019 Seasonal Influenza Virus Vac cine, Unspecified Formulation 03/05/2020 Seasonal Influenza, PF, 6 M & above, IM , (FluLaval or Fluzone) 04/08/2022 Seasonal Influenza, Recombin ant, RIV4, PF, (Flublock) 03/05/2020 Seasonal Influenza, Split, I IV3, With Preserve, Inj 04/18/2019,04/05/2018,03/10/2017,04/05,04/07/2015,02/08/2009,03/22/2008 ,03/31/2007 documented as of this encounter Social History Tobacco Use Types Packs/Day Years Used Date Smoking Tobacco: Never Smokeless Tobacco: Former Chew Quit: 02/10/2019 Alcohol Use Standard Drinks/Week Comments Not Currently 0 (1 standard drink = 0.6 oz pure alcohol) Last drink: 06/07/16; 3-4 beers/day x 5 years Sex and Gender Information Value Date Recorded Sex Assigned at Not on file Gender Identity Not on file Sexual Orientation Not on file Job Start Date Occupation Industry Not on file Not on file Not on file documented as of this encounter Functional Status Functional Status Response Date of Assess ment Are you deaf or do you have serious difficulty h earing? No 06/29/2023 Are you blind or do you have serious difficulty seeing, even when wearing glasses? No 06/29/2023 Do you have serious difficul ty walking or climbing stairs? (5 years old or older) No 06/29/2023 Do you have difficulty dress ing or bathing? (5 years old or older) No 06/29/2023 Because of a physical, menta l, or emotional condition, do you have difficulty doing errands alone such as visiting a doctor s office or shopping? (15 years old or older) No 06/29/19 Cognitive Status Response Date of Assessm ent Because of a physical, menta l, or emotional condition, do you have serious difficulty concentrating, remembering, or making decisions? (5 years old or older) No 06/29/2023 documented as of this encounter Plan of Treatment Upcoming Encounters Date Type Department Care Team (Latest Contact Info) Description 4 9:30 AM EDT Office Visit Gastroenterolog y, [facility] [address] [place] [address] Ximena Greenberg CRNP [address] [place] [address] 4 10:15 AM EDT Office Visit Ophthalmology, [facility] [address] [place] [address] Dewayne Flores DO [address] [place] [address] 4 11:45 AM EDT Office Visit Urology, [facility] [address] [place] [address] Sha Rey MD [address] [address] [place] [address] 4 10:23 AM EDT Hospital Encounter OR GL, Operating Room, [facility] - 4th Floor [address] [place] [address] Tim Browne MD [address] [place] [address] 4 10:23 AM EDT - 4 11:49 AM EDT Surgery OR [facility], Operating Room, [facility] - 4th Floor [address] [place] [address] Tim Browne MD [address] [place] [address] ESOPHAGOGASTRODUODENOSCOPY (EGD), FLEXIBLE, TRANSORAL, DIAGNOSTIC Scheduled Procedures Name Priority Associated Diagnoses Date/Ti va ESOPHAGOGASTRODUODENOSCOPY ( EGD), FLEXIBLE, TRANSORAL, DIAGNOSTIC GERD (gastroesophageal reflux disease) 11/03/2023 10:23 AM EDT LOWER ESOPHAGEAL MYOTOMY, TR ANSORAL (IE, PERORAL ENDOSCOPIC MYOTOMY [POEM]) GERD (gastroesophageal reflux disease) 11/03/2023 10:23 AM EDT COLONOSCOPY FLEXIBLE PROXIMA L DIAGNOSTIC Recall Screening for colon cancer Health Maintenance Due Date Last Done Comments Depression Screening 1982 DTaP,Tdap,and Td Vaccines (1 - Tdap) 1989 Hepatitis B (1 of 3 - 19+ 3-dose series) 1989 Pneumococcal Vaccine: Pediatrics (0 to 5 Years) and At-Risk Patients (6 to 64 Years) (3 of 3 - PCV) 04/05/2013 04/05/2012, 03/31/2007 Cologuard 08/28/2015 Fecal Occult Blood Test 08/28/2015 Sigmoidoscopy 08/28/2015 Diabetic Foot Exam 05/18/2016 05/18/2015, 0 08/31/2008, 06/16/2007, Additional history exists Zoster Vaccines (1 of 2) 2020 Influenza Vaccine (FLU shot) (#1) 2023 04/08/2022, 03/25/2021, 03/05/2020, Additional history exists Diabetic Eye Exam 11/20/2023 11/19/2022, , 08/20/2021, Additional history exists HbA1c 01/12/2024 07/14/2023, 06/09, 10/15/2022, Additional history exists Lipid Panel 07/17/2025 07/17/2020, 0 07/2019, 09/12/2002 Colonoscopy 11/20/2032 11/20/2022, 11/20/2022 Colorectal Cancer Screening 11/20/2032 COVID-19 Vaccine Completed 03/30/2023, 10/2020, 07/17/2020 GARDASIL-HPV IMMUNIZATION SERIES Aged Out No longer eligible based on patient's age to complete this topic MENINGOCOCCAL (MENACTRA/MENVEO) Aged Out No longer eligible based on patient's age to complete this topic documented as of this encounter Medical Devices Not on filedocumented as of this encounter Procedures Procedure Name Priority Date/Time Associated Diagnosis Comments UPPER GI ENDOSCOPY 08/06/2023 documented in this encounter Results * UPPER GI ENDOSCOPY (08/06/2023) 08/06/2023 Tim Browne MD GASTRO UPPER documented in this encounter Advance Directives Documents on File Type Date Recorded Patient Inspecting Engineer Expl anation Power of Metal And Plastic Heater 01/15/2021 POWER OF A TTORNEY Latest Code Status on File Code Status Date Activated Date Inactivated Comments Full Code 06/29/2023 8:35 PM 07/01/2023 8:09 PM This order reflects the patients wishes and were consensually agreed upon. Question Answer Comments Discussion of Advance Directives occurred with: Patient Does the patient have a Living Will? No Does the patient have Health Care Power of Metal And Plastic Heater? No Code Status History Code Status Date Activated Date Inactivated Comments Full Code 10/16/2022 12:11 AM 10/17/2022 5:53 PM This order reflects the patients wishes and were consensually agreed upon. Question Answer Comments Discussion of Advance Directives occurred with: Not Discussed due to patient's condition Full Code 09/14/2022 7:59 AM 09/16/2022 5:19 PM This o rder reflects the patients wishes and were consensually agreed upon. Question Answer Comments Discussion of Advance Directives occurred with: Family Does the patient have a Living Will? No Does the patient have Health Care Power of Metal And Plastic Heater? No Full Code 01/13/2021 1:16 PM 01/14/2021 7:45 PM This or afua reflects the patients wishes and were consensually agreed upon. Full Code 11/15/2020 6:43 PM 11/20/2020 7:42 PM This order reflects the patients wishes and were consensually agreed upon. Question Answer Comments Discussion of Advance Directives occurred with: Patient Care Teams Tunnel Miner Relationship Specialty Start Date End Date Genet Cool MD [address] [place] [address] [place] [id number] PCP - General Internal Medicine 01/06/23 documented as of this encounter
--- NOTE | 2023-08-16 19:07 | Emergency Department Note ---
Impression & Plan Diabetic gastroparesis, Vomiting, Dialysis patient ED Provider Note NAME: JERARDO PEREZ AGE: 52 SEX: M : 1970 ARRIVES VIA: Walk-In INFORMANT: Patient ED PROVIDER(S): Obie Lancaster DO CHIEF COMPLAINT: Vomiting HPI: Patient is a 52-year-old male with a past medical history of end-stage renal disease on dialysis Thursday, Thursday, Thursday and has not missed any courses, CAD who presents to the ER for persistent vomiting. Patient has symptoms that started around 12:00 with persistent nausea and vomiting. Unable to keep anything down. Denies any headache or change in vision. No chest pain or shortness of breath. No belly pain. He does not make urine. No other exacerbating or remitting factors. He has been unable to keep down his blood pressure medications. Additional history obtained from mom who is present at bedside who notes that he has been vomiting persistently since 12:00. ADDITIONAL HISTORY OBTAINED: Per HPI Chronic Medical/Social Conditions Affecting Care: Per HPI PAST MEDICAL HISTORY:See Below PAST SURGICAL HISTORY:See Below FAMILY HISTORY:See Below SOCIAL HISTORY:See Below HOME MEDICATIONS:See Below ALLERGIES:See Below VITALS:See Below PHYSICAL EXAMINATION: GENERAL: Sitting up in bed, alert, vomiting green bile EYE EXAM: normal conjunctiva. PERRL and EOM's grossly intact. OROPHARYNX: mucous membranes are moist NECK: supple, no nuchal rigidity, no adenopathy, non-tender LUNGS: Clear to auscultation. Normal chest wall mechanics HEART: no murmurs, S1 normal and S2 normal ABDOMEN: abdomen soft, non-tender, normo-active bowel sounds, no masses, no rebound or guarding. UPPER EXTREMITIES: Left upper extremity with a positive thrill and bruit over the fistula LOWER EXTREMITIES: No pitting edema. NEURO EXAM: Normal sensorium, cranial nerves II-XII grossly intact, normal speech, no gross weakness of arms, no gross weakness of legs. MEDICAL DECISION MAKING: Patient is a 52-year-old male who presents ER on dialysis Thursday was a Thursday who has not missed any courses presents here for nausea vomiting and unable to keep down any of his medications. He is hypertensive with systolic pressures in the 180s. Labs show no significant leukocytosis or anemia. VBG was unremarkable. BMP with a creatinine of 8. He is due for dialysis tomorrow. CO2 slightly low at 17 but pH is appropriate. LFTs bilirubin was unremarkable. Lipase normal. Complete benign abdomen. Declines any additional imaging. He was given IV fluids, Zofran, Reglan and Compazine. Vomiting did improve but was still fairly persistent. Discussed case with the hospitalist for further evaluation management treatment. Consults/Care Managements Discussions: Per [facility] Triage Nursing notes reviewed. Limited review of prior medical records performed Vital Signs: reviewed and remarkable for HTN Differential diagnosis: Differential diagnoses includes but is not limited to gastritis, peptic ulcer disease, GERD, gallbladder disease, pancreatitis, small bowel obstruction, appendicitis, diverticulitis, hernia, urinary tract infection, torsion, perforation, trauma, infectious. ER treatment provided: See below Diagnostics interpreted by me include EKG and cardiac monitoring as listed below: -Cardiac Monitoring: An order was placed for continuous cardiac monitoring. The monitor shows a rate of 80 with sinus rhythm. -ECG: none -Laboratory studies:Interpreted by me as stated above in MDM and shown below. Imaging studies: Xrays: As interpreted by me: Portable KUB is unremarkable for obstruction CTs show: none Procedures:none Critical Care: None Past Med/Surg History Medical History Nausea & vomiting History of COVID-2022--mild symptoms, no symptoms now Orthopnea Musculoskeletal chest pain History of nephrolithiasis Personal history of diabetic foot ulcer Diabetic peripheral neuropathy associated with type 1 diabetes mellitus Cyclical vomiting syndrome Chronic pleural effusion PleurX catheter placed 01/24/21--removed 07/2021 History of pulmonary embolism 11/2020; unk etiology; was on warfarin (taken off 05/2021) Urolithiasis Hypertension Junctional rhythm Diabetic gastroparesis 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 Lor Guadalupe; [facility]) Surgical History History of colonoscopy S/P arteriovenous (AV) fistula creation left arm History of cataract surgery History of esophagogastroduodenoscopy (EGD) (~03/08/20) History of open reduction and internal fixation (ORIF) procedure right hip Nausea and vomiting after administration of anesthetic agent History of lithotripsy History of cardiac cath x2---07/28/23 @ [facility], no stents--per pt done for transplant list and 10/2018 @ [facility] (no stents) History of hip surgery left HIP ARTHROSCOPY H/O shoulder surgery RIGHT History of appendectomy Family History Grandfather Myocardial infarction Grandfather (Maternal) Family history of diabetes mellitus Uncle Myocardial infarction Father Hypertension Mother Kidney stone Other No family history of adverse response to anesthesia Denies family history of Colon cancer Ovarian cancer Prostate cancer Breast cancer Social History Smoking Status: Never smoker Tobacco Type: Smokeless Tobacco (Dip or Chew) Second Hand Exposure: No; Do You Dip or Chew Tobacco: No (quit 2018); Hx Alcohol Use: No Hx Substance Use: No Preferred Language: Gibraltarian Communication Ability: Effective Visual Impairment: No Limitations Hearing Ability: Normal Asphalt Spreader Required: No Beliefs That Will Affect Care: None marital status: Current Living Situation: Parent Current Living Situation Comment: wiht parents Iva current occupational status: disabled How many Children do You have: 2 Feels Safe at Home: Yes Childhood Exposure to Second-Hand Smoke: Yes Diet: regular caffeine: Yes Dental Care, Regularly: No Physical Activity Frequency: 1-2 Times per Week Seatbelt Use: always Sunscreen Use: Yes Gender Identity: Male Assistive Devices: None Allergies Allergies Allergy/AdvReac Type Severity Reaction Status Date / Time shellfish derived Allergy Severe anaphylaxis Verified 08/16/23 21:05 codeine Allergy Intermediate Hives Verified 08/16/23 21:05 promethazine Allergy Intermediate itchy/hives Verified 08/16/23 21:05 Home Meds Home Medications Medication Instructions Recorded Confirmed acetaminophen 325 mg capsule 650 mg PO Q4H PRN Pain (Scale 09/28/20 08/16/23 Score 1-3) cholecalciferol (vitamin D3) 50 50 mcg PO QAM 10/25/21 08/16/23 mcg (2,000 unit) capsule (Vitamin D3) sertraline 100 mg tablet 100 mg PO QAM 12/29/21 08/16/23 sertraline 25 mg tablet 25 mg PO QAM 12/29/21 08/16/23 melatonin 1 mg tablet 4 mg PO HS PRN Sleep 09/18/22 08/16/23 midodrine 5 mg tablet 5 mg PO .COMPLEX 02/19/23 08/16/23 mirtazapine 7.5 mg tablet 7.5 mg PO HS 02/19/23 08/16/23 amlodipine 10 mg tablet 10 mg PO QAM 05/19/23 08/16/23 trimethobenzamide 300 mg capsule 300 mg PO TID PRN nausea and 07/02/23 08/16/23 vomiting lanthanum 500 mg chewable tablet 500 mg PO UD 08/09/23 08/16/23 Previous Rx's Medication Instructions Recorded atorvastatin 10 mg tablet 10 mg PO QAM #90 tabs 08/11/22 ondansetron HCl 4 mg tablet 8 mg (2 x 4 mg) PO Q4 PRN nausea 08/14/22 or vomiting #60 tabs insulin regular human 100 unit/mL 30 unit (0.3 mL) subcut DAILY #15 02/20/23 (3 mL) subcutaneous pen (Novolin R mL FlexPen) carvedilol 12.5 mg tablet (Coreg) 12.5 mg PO BID #30 tabs 04/08/23 pantoprazole 40 mg tablet,delayed 40 mg PO QAM #90 tabs 04/16/23 release (Protonix) lorazepam 0.5 mg tablet 0.5 mg PO Q8H PRN severe nausea 04/24/23 #30 tabs insulin glargine 100 unit/mL (3 17 unit (0.17 mL) subcut QAM #15 mL 06/22/23 mL) subcutaneous pen (Basaglar KwikPen U-100 Insulin) Results & Data (ED) Vital Signs Vital Signs - 24 hr 08/16/23 18:46 08/16/23 18:53 08/16/23 18:54 Temperature 35.9 C L Temperature Source Temporal Artery Scan Pulse Rate 75 72 73 Pulse Rate from SpO2 Sensor Pulse Rhythm Respiratory Rate 22 16 Respiratory Effort / Characteristics Non-Labored Spontaneous Respiratory Depth Normal Blood Pressure 178/80 H 206/99 H Blood Pressure Mean 112 134 Pulse Oximetry 100 99 Oxygen Delivery Method Room Air Room Air Sepsis Recent Fever Within 48 Hours No Sepsis New/Unexplained Change in Mental Status No Sepsis Action Taken by Nursing No Action Required 08/16/23 19:01 08/16/23 19:08 08/16/23 19:30 Temperature Temperature Source Pulse Rate 72 73 73 Pulse Rate from SpO2 Sensor 72 73 Pulse Rhythm Regular Respiratory Rate 16 18 15 Respiratory Effort / Characteristics Respiratory Depth Blood Pressure 199/81 H 184/88 H Blood Pressure Mean 120 120 Pulse Oximetry 99 100 99 Oxygen Delivery Method Room Air Room Air Room Air Sepsis Recent Fever Within 48 Hours Sepsis New/Unexplained Change in Mental Status Sepsis Action Taken by Nursing 08/16/23 20:00 08/16/23 20:30 08/16/23 21:00 Temperature 36.5 C Temperature Source Oral Pulse Rate 72 77 Pulse Rate from SpO2 Sensor 72 77 Pulse Rhythm Respiratory Rate 17 16 Respiratory Effort / Characteristics Respiratory Depth Blood Pressure 184/79 H 179/83 H Blood Pressure Mean 114 115 Pulse Oximetry 97 93 Oxygen Delivery Method Room Air Room Air Sepsis Recent Fever Within 48 Hours Sepsis New/Unexplained Change in Mental Status Sepsis Action Taken by Nursing 08/16/23 21:00 Temperature Temperature Source Pulse Rate 74 Pulse Rate from SpO2 Sensor 74 Pulse Rhythm Respiratory Rate 12 Respiratory Effort / Characteristics Respiratory Depth Blood Pressure 177/81 H Blood Pressure Mean 113 Pulse Oximetry 95 Oxygen Delivery Method Room Air Sepsis Recent Fever Within 48 Hours Sepsis New/Unexplained Change in Mental Status Sepsis Action Taken by Nursing Laboratory Data 08/16/23 19:19 08/16/23 19:19 Lab Results 08/16/23 08/16/23 Range/Units 19:19 19:55 WBC 11.65 H (4.8-10.8) K/ul RBC 3.74 L (4.70-6.10) M/uL Hgb 12.4 L (14.0-18.0) g/dl Hct 36.9 L (42.0-52.0) % MCV 98.7 (80.0-100.0) fL MCH 33.2 (25.0-34.0) pg MCHC 33.6 (32.0-36.0) g/dL RDW Std Deviation 50.4 H (36.4-46.3) fL RDW Coeff of Kami 14.0 (11.5-14.5) % Plt Count 325 (130-400) K/uL MPV 9.1 L (9.4-12.4) fL Immature Gran % (Auto) 0.8 % Neut % (Auto) 88.1 % Lymph % (Auto) 7.6 % Gem % (Auto) 3.1 % Eos % (Auto) 0.1 % Baso % (Auto) 0.3 % Neut # (Auto) 10.27 H (1.40-6.50) K/uL Lymph # (Auto) 0.89 L (1.20-3.40) K/uL Gem # (Auto) 0.36 (0.11-0.59) K/uL Eos # (Auto) 0.01 (0.00-0.50) K/uL Baso # (Auto) 0.03 (0.00-0.20) K/uL Immature Gran # (Auto) 0.09 (0.01-0.20) K/uL VBG pH 7.38 (7.36-7.41) VBG pCO2 41 (38-50) mmHg VBG pO2 49 mmHg VBG HCO3 24 mmol/L VBG O2 Saturation 80.6 % VBG Base Excess -0.8 mEq/L Sodium 131 L (136-145) mmol/L Potassium 4.5 (3.5-5.1) mmol/L Chloride 90 L (98-107) mmol/L Carbon Dioxide 24 (21-32) mmol/L Anion Gap 17 H (3-11) BUN 64 H (6-23) mg/dl Creatinine 8.11 H* (0.6-1.4) mg/dl Est Cr Clr Drug Dosing 9.9 ml/min Est GFR ( Amer) 7.9 ml/min Est GFR (Non-Af Amer) 6.9 ml/min BUN/Creatinine Ratio 7.9 L (10-20) Glucose 230 H (70-99(Fasting)) mg/dl Calcium 8.7 (8.6-10.3) mg/dl Total Bilirubin 0.6 (0.2-1.0) mg/dl AST 11 L (13-39) U/L ALT 13 (7-52) U/L Alkaline Phosphatase 133 H (34-104) U/L Total Protein 7.7 (6.0-8.3) gm/dl Albumin 4.5 (3.4-5.0) gm/dl Globulin 3.2 (2.5-4.0) gm/dl Albumin/Globulin Ratio 1.4 (0.9-2) Lipase 20 (11-82) U/L Administered Medications Discontinued Medications Sodium Chloride (Nss) 500 mls @ 999 mls/hr IV .Q31M ONE Stop: 08/16/23 19:29 Last Infusion: 08/16/23 20:19 Dose: Infused Documented By: Admin: 08/16/23 19:09 Dose: 999 mls/hr Documented By: SP Promethazine HCl (Phenergan) 25 mg in 51 mls @ 204 mls/hr IV NOW STA Stop: 08/16/23 20:25 Last Admin: 08/16/23 20:37 Dose: Not Given Documented By: SP Prochlorperazine (Compazine) 2 mls @ 1 mls/min IV ONE ONE Stop: 08/16/23 20:36 Last Admin: 08/16/23 20:57 Dose: 1 mls/min Documented By: SP Metoclopramide HCl (Metoclopramide Hcl Inj 5 Mg/Ml 2 Ml Vial) 10 mg IV NOW STA Stop: 08/16/23 19:00 Last Admin: 08/16/23 19:09 Dose: 10 mg Documented By: SP Ondansetron HCl (Ondansetron Inj 2 Mg/Ml 2 Ml Vial) 4 mg IV NOW STA Stop: 08/16/23 20:12 Last Admin: 08/16/23 20:57 Dose: 4 mg Documented By: SP Imaging Data Radiologist's Impression: KUB X-Ray 08/16/23 19:34 XR KUB/Abdomen 1 view CLINICAL HISTORY: abd TECHNIQUE: 1 view of the abdomen was obtained. Comparison: Comparison is made to abdomen radiograph 08/26/2023 FINDINGS: Right femoral fixation hardware is seen. The osseous structures are grossly unremarkable. The bowel gas pattern is nonobstructive. Small stool burden is seen. IMPRESSION: Nonobstructive bowel gas pattern. ACT 112: Negative or not required by law. Electronically signed by: Maninder Cohen M.D. 08/16/2023 7:54 PM Discharge Plan Visit Data Chief Complaint: Vomiting Stated Complaint: NAUSEA,VOMITING,SUGAR ELEVATING ED Provider: Obie Lancaster Discharge Problem: Diabetic gastroparesis, Vomiting, Dialysis patient Forms Stand Alone Forms: My [facility] [employer] Prescriptions Prescriptions: No Action acetaminophen 325 mg capsule 650 mg PO Q4H PRN (Reason: Pain (Scale Score 1-3)) atorvastatin 10 mg tablet 10 mg PO QAM Qty: 90 1RF pantoprazole [Protonix] 40 mg tablet,delayed release (DR/EC) 40 mg PO QAM Qty: 90 1RF insulin glargine [Basaglar KwikPen U-100 Insulin] 100 unit/mL (3 mL) insulin pen 17 unit SUBCUT QAM MDD 17 Qty: 15 3RF Patient Comments: 17 units amlodipine 10 mg tablet 10 mg PO QAM lorazepam 0.5 mg tablet 0.5 mg PO Q8H PRN (Reason: severe nausea) Qty: 30 0RF trimethobenzamide 300 mg capsule 300 mg PO TID PRN (Reason: nausea and vomiting) mirtazapine 7.5 mg tablet 7.5 mg PO HS midodrine 5 mg tablet 5 mg PO .COMPLEX Rx Instructions: 5 mg orally as needed at dialysis; Novolin R FlexPen 100 unit/mL (3 mL) insulin pen 30 unit subcut DAILY Qty: 15 5RF Patient Comments: 9 units ondansetron HCl 4 mg tablet 8 mg PO Q4 PRN (Reason: nausea or vomiting) Qty: 60 2RF melatonin 1 mg tablet 4 mg PO HS PRN (Reason: Sleep) sertraline 100 mg tablet 100 mg PO QAM Rx Instructions: TOTAL DOSE 125 MG--TAKES WITH 25 MG TAB. sertraline 25 mg tablet 25 mg PO QAM Rx Instructions: TOTAL DOSE 125 MG--TAKES WITH 100 MG TAB. carvedilol [Coreg] 12.5 mg tablet 12.5 mg PO BID Qty: 30 3RF Rx Instructions: must administer with a meal/food cholecalciferol (vitamin D3) [Vitamin D3] 50 mcg (2,000 unit) capsule 50 mcg PO QAM lanthanum 500 mg tablet,chewable 500 mg PO UD Rx Instructions: 1 tablet with meals and 1 with snacks= 6 tab for the day Referrals Referrals: Genet Cool MD [Primary Care Provider] - Discharge Problem: Vomiting Qualifiers: Vomiting type: unspecified Nausea presence: unspecified Qualified Code(s): R 11.10 - Vomiting, unspecified
[2023-08-16] MEDS: METOCLOPRAMIDE HCL INJ 5 MG/ML 2 ML VIAL IV STA (19:09)
[2023-08-16] MEDS: SODIUM CHLORIDE 0.9% 500 ML IV ONE (19:09)
[2023-08-16 19:40] LABS: Basophils # (auto) 0.03 K/uL (0.00-0.20); Basophils % (auto) 0.3 %; Eosinophils # (auto) 0.01 K/uL (0.00-0.50); Eosinophils % (auto) 0.1 %; Hematocrit (blood only) 36.9 % (42.0-52.0); Hemoglobin 12.4 g/dl (14.0-18.0); Immature Granulocytes # (auto) 0.09 K/uL (0.01-0.20); Immature Granulocytes % (auto) 0.8 %; Lymphocytes # (auto) 0.89 K/uL (1.20-3.40); Lymphocytes % (auto) 7.6 %; Mean Corpuscular Hemoglobin 33.2 pg (25.0-34.0); Mean Corpuscular Hgb Conc 33.6 g/dL (32.0-36.0); Mean Corpuscular Volume 98.7 fL (80.0-100.0); Mean Platelet Volume 9.1 fL (9.4-12.4); Monocytes # (auto) 0.36 K/uL (0.11-0.59); Monocytes % (auto) 3.1 %; Neutrophils # (auto) 10.27 K/uL (1.40-6.50); Neutrophils % (auto) 88.1 %; Platelet Count 325 K/uL (130-400); RDW Standard Deviation 50.4 fL (36.4-46.3); Red Blood Count 3.74 M/uL (4.70-6.10); White Blood Count 11.65 K/ul (4.8-10.8)
--- NOTE | 2023-08-16 19:55 | XRay Report ---
XR KUB/Abdomen 1 view CLINICAL HISTORY: abd TECHNIQUE: 1 view of the abdomen was obtained. Comparison: Comparison is made to abdomen radiograph 08/26/2023 FINDINGS: Right femoral fixation hardware is seen. The osseous structures are grossly unremarkable. The bowel g as pattern is nonobstructive. Small stool burden is seen. IMPRESSION: Nonobstructive bowel gas pattern. ACT 112: Negative or not required by law. Electronically signed by: Maninder Cohen M.D. 08/16/2023 7:54 PM
[2023-08-16 20:01] LABS: Albumin Globulin Ratio 1.4 (0.9-2); Albumin Level 4.5 gm/dl (3.4-5.0); BUN Creatinine Ratio 7.9 (10-20); Bilirubin,Total 0.6 mg/dl (0.2-1.0); Calcium 8.7 mg/dl (8.6-10.3); Creatinine Clr Calc Pharmacy 9.9 ml/min; Est GFR (African American) 7.9 ml/min; Est GFR (Non-African American) 6.9 ml/min; Globulin 3.2 gm/dl (2.5-4.0); Potassium 4.5 mmol/L (3.5-5.1); Total Protein 7.7 gm/dl (6.0-8.3)
[2023-08-16 20:09] LABS: Base Excess VBG -0.8 mEq/L; HCO3 VBG 24 mmol/L; Oxygen Saturation VBG 80.6 %; PCO2 VBG 41 mmHg (38-50); PO2 VBG 49 mmHg; pH VBG 7.38 (7.36-7.41)
[2023-08-16] MEDS ORDERED: ONDANSETRON INJ 2 MG/ML 2 ML VIAL ONE (20:30)
[2023-08-16] MEDS ORDERED: PROMETHAZINE HCL INJ 25 MG/ML 1 ML VIAL ONE (20:31)
[2023-08-16] MEDS: PROMETHAZINE 25 MG/51 ML BAG IV STA (20:37)
[2023-08-16] MEDS ORDERED: PROCHLORPERAZINE 5 MG/ML 2 ML VIAL ONE (20:48)
[2023-08-16] MEDS: ONDANSETRON INJ 2 MG/ML 2 ML VIAL IV STA (20:57)
[2023-08-16] MEDS: PROCHLORPERAZINE 2 ML IV ONE (20:57)
--- NOTE | 2023-08-16 21:19 | History & Physical Report ---
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 overnight, reassess in the morning He received 500 cc normal saline from the ED Place on NSS at 60 mL/h x 500 mL No signs of active infection Nurses reports that when they were adjusting his IV, he looked at them blankly, and then started retching into his bag ESRD on HD- Follows with [facility] nephrology He is due for dialysis tomorrow morning, Thursday morning, and his mother asks that he be discharged shortly after that so he can make appointments that he has on Thursday. The patient keeps his eyes closed, but nods his head to that to be acceptable for him Diabetes mellitus- Placed on Accu-Cheks with NovoLog SSI Hold regular insulin Reduce glargine from 17 to 8 units subcu every morning Patient tends to be brittle, would rather his blood sugar run a little high, with sugar presently is 230 Anxiety/depression- Resume sertraline, mirtazapine, melatonin, lorazepam, in the morning if the patient is able to take oral medications CAD/hypertension- For tonight, hold amlodipine, carvedilol, as blood pressure is relatively low, and the patient would not have any oral intake overnigh Of note, patient has been accepted into a program at [place] for kidney and pancreas transplant History of Present Illness Chief Complaint: The patient presents to the emergency department with complaint of intermittent vomiting and retching since around 12:00 in the afternoon, reported he is unable to keep any food or medications down Primary Care Provider: Genet Cool MD The patient is a 53-year-old male with past medical history including ESRD on HD, diabetic gastroparesis, diabetic retinopathy, chronic bilateral pleural effusion, CAD, GERD, anxiety, anemia chronic disease, cardiomyopathy, and lumbar radiculopathy. Patient has had several similar presentations in the past without discernible cause. Presumptively this is associated with diabetic gastroparesis. Patient denies any unusual food intakes or any recent travels or sick exposures. Allergies Allergy/AdvReac Type Severity Reaction Status Date / Time shellfish derived Allergy Severe anaphylaxis Verified 08/16/23 21:05 codeine Allergy Intermediate Hives Verified 08/16/23 21:05 promethazine Allergy Intermediate itchy/hives Verified 08/16/23 21:05 Home Medications Medication Instructions Recorded Confirmed Type acetaminophen 325 mg capsule 650 mg PO Q4H PRN Pain (Scale 09/28/20 08/16/23 History Score 1-3) cholecalciferol (vitamin D3) 50 50 mcg PO QAM 10/25/21 08/16/23 History mcg (2,000 unit) capsule (Vitamin D3) sertraline 100 mg tablet 100 mg PO QAM 12/29/21 08/16/23 History sertraline 25 mg tablet 25 mg PO QAM 12/29/21 08/16/23 History atorvastatin 10 mg tablet 10 mg PO QAM #90 tabs 08/11/22 08/16/23 Rx ondansetron HCl 4 mg tablet 8 mg (2 x 4 mg) PO Q4 PRN nausea 08/14/22 08/16/23 Rx or vomiting #60 tabs melatonin 1 mg tablet 4 mg PO HS PRN Sleep 09/18/22 08/16/23 History midodrine 5 mg tablet 5 mg PO .COMPLEX 02/19/23 08/16/23 History mirtazapine 7.5 mg tablet 7.5 mg PO HS 02/19/23 08/16/23 History insulin regular human 100 unit/mL 30 unit (0.3 mL) subcut DAILY #15 02/20/23 08/16/23 Rx (3 mL) subcutaneous pen (Novolin R mL FlexPen) carvedilol 12.5 mg tablet (Coreg) 12.5 mg PO BID #30 tabs 04/08/23 08/16/23 Rx pantoprazole 40 mg tablet,delayed 40 mg PO QAM #90 tabs 04/16/23 08/16/23 Rx release (Protonix) lorazepam 0.5 mg tablet 0.5 mg PO Q8H PRN severe nausea 04/24/23 08/16/23 Rx #30 tabs amlodipine 10 mg tablet 10 mg PO QAM 05/19/23 08/16/23 History insulin glargine 100 unit/mL (3 17 unit (0.17 mL) subcut QAM #15 mL 06/22/23 08/16/23 Rx mL) subcutaneous pen (Basaglar LivanPen U-100 Insulin) trimethobenzamide 300 mg capsule 300 mg PO TID PRN nausea and 07/02/23 08/16/23 History vomiting lanthanum 500 mg chewable tablet 500 mg PO UD 08/09/23 08/16/23 History Past Med/Surg History Medical History (Updated 08/17/23 @ 03:20 by Colton Guajardo MD) 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 Lor Guadalupe; [facility]) History of COVID-2022--mild symptoms, no symptoms now Orthopnea Musculoskeletal chest pain History of nephrolithiasis Personal history of diabetic foot ulcer Diabetic peripheral neuropathy associated with type 1 diabetes mellitus Cyclical vomiting syndrome Chronic pleural effusion PleurX catheter placed 01/24/21--removed 07/2021 History of pulmonary embolism 11/2020; unk etiology; was on warfarin (taken off 05/2021) Urolithiasis Hypertension Junctional rhythm Diabetic gastroparesis 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, with long-term current use of insulin Anemia of chronic disease Anxiety Kidney stone on right side hx Lumbar radiculopathy AV fistula left upper arm GERD (gastroesophageal reflux disease) Diabetic retinopathy Depression CAD (coronary artery disease) mild, non-obstructive CAD per 10/2018 cardiac cath> [facility] Surgical History History of colonoscopy S/P arteriovenous (AV) fistula creation left arm History of cataract surgery History of esophagogastroduodenoscopy (EGD) (~03/08/20) History of open reduction and internal fixation (ORIF) procedure right hip Nausea and vomiting after administration of anesthetic agent History of lithotripsy History of cardiac cath x2---07/28/23 @ [facility], no stents--per pt done for transplant list and 10/2018 @ [facility] (no stents) History of hip surgery left HIP ARTHROSCOPY H/O shoulder surgery RIGHT History of appendectomy Family History Grandfather Myocardial infarction Grandfather (Maternal) Family history of diabetes mellitus Uncle Myocardial infarction Father Hypertension Mother Kidney stone Other No family history of adverse response to anesthesia Denies family history of Colon cancer Ovarian cancer Prostate cancer Breast cancer Social History Smoking Status: Never smoker Tobacco Type: Smokeless Tobacco (Dip or Chew) Second Hand Exposure: No; Do You Dip or Chew Tobacco: No (quit 2019); Hx Alcohol Use: No Hx Substance Use: No Preferred Language: Korean Communication Ability: Effective Visual Impairment: No Limitations Hearing Ability: Normal Cash Posting Clerk Required: No Beliefs That Will Affect Care: None marital status: Current Living Situation: Parent Current Living Situation Comment: with alycia and babita parents current occupational status: disabled How many Children do You have: 2 Feels Safe at Home: Yes Safety Concerns: Feels Safe At This Time Childhood Exposure to Second-Hand Smoke: Yes Diet: regular caffeine: Yes Dental Care, Regularly: No Physical Activity Frequency: 1-2 Times per Week Seatbelt Use: always Sunscreen Use: Yes Gender Identity: Male Assistive Devices: Cane Review of Systems Review of Systems: The patient does not contribute significantly to his HPI or review of systems, and his mother is in attendance, supplies most of the information. Physical Exam Physical Exam: The patient is awake, but does not answer questions, well developed and well nourished, normocephalic and atraumatic, lying in bed and in no acute distress. HEENT--PERRL, EOMI, mucous membranes and oropharynx dry. Neck--supple. No JVD. No bruits. Thyroid normal, trachea midline, no adenopathy. Heart--normal S1 and S2. No murmurs, rubs or gallops. Lungs--clear bilaterally, no respiratory distress, no accessory muscle use. Abdomen--normal bowel sounds and soft. Nontender. Nondistended Extremities--No edema Dermatologic--normal skin turgor, normal color, no abnormal lymph nodes, no rash. Neurologic--cranial nerves II through XII grossly intact. Rheumatologic--normal range of motion. Psychiatric--awake, but does not participate Results & Data Results & Data Vital Signs (Past 12 Hours) Vital Signs Temp Pulse Resp BP Pulse Ox O2 Del Method 08/16/23 21:00 74 12 177/81 H 95 Room Air 08/16/23 21:00 36.5 C 08/16/23 20:30 77 16 179/83 H 93 Room Air 08/16/23 20:00 72 17 184/79 H 97 Room Air 08/16/23 19:30 73 15 184/88 H 99 Room Air 08/16/23 19:08 73 18 100 Room Air 08/16/23 19:01 72 16 199/81 H 99 Room Air 08/16/23 18:54 73 16 206/99 H 99 Room Air 08/16/23 18:53 72 08/16/23 18:46 35.9 C L 75 22 178/80 H 100 Room Air Laboratory Results Laboratory Results WBC 11.65 K/ul (4.8-10.8) H 08/16/23 19:19 RBC 3.74 M/uL (4.70-6.10) L 08/16/23 19:19 Hgb 12.4 g/dl (14.0-18.0) L 08/16/23 19:19 Hct 36.9 % (42.0-52.0) L 08/16/23 19:19 MCV 98.7 fL (80.0-100.0) 08/16/23 19:19 MCH 33.2 pg (25.0-34.0) 08/16/23 19:19 MCHC 33.6 g/dL (32.0-36.0) 08/16/23 19:19 RDW Std Deviation 50.4 fL (36.4-46.3) H 08/16/23 19:19 RDW Coeff of Kami 14.0 % (11.5-14.5) 08/16/23 19:19 Plt Count 325 K/uL (130-400) 08/16/23 19:19 MPV 9.1 fL (9.4-12.4) L 08/16/23 19:19 Immature Gran % (Auto) 0.8 % 08/16/23 19:19 Neut % (Auto) 88.1 % 08/16/23 19:19 Lymph % (Auto) 7.6 % 08/16/23 19:19 [place] % (Auto) 3.1 % 08/16/23 19:19 Eos % (Auto) 0.1 % 08/16/23 19:19 Baso % (Auto) 0.3 % 08/16/23 19:19 Neut # (Auto) 10.27 K/uL (1.40-6.50) H 08/16/23 19:19 Lymph # (Auto) 0.89 K/uL (1.20-3.40) L 08/16/23 19:19 [place] # (Auto) 0.36 K/uL (0.11-0.59) 08/16/23 19:19 Eos # (Auto) 0.01 K/uL (0.00-0.50) 08/16/23 19:19 Baso # (Auto) 0.03 K/uL (0.00-0.20) 08/16/23 19:19 Immature Gran # (Auto) 0.09 K/uL (0.01-0.20) 08/16/23 19:19 VBG pH 7.38 (7.36-7.41) 08/16/23 19:55 VBG pCO2 41 mmHg (38-50) 08/16/23 19:55 VBG pO2 49 mmHg 08/16/23 19:55 VBG HCO3 24 mmol/L 08/16/23 19:55 VBG O2 Saturation 80.6 % 08/16/23 19:55 VBG Base Excess -0.8 mEq/L 08/16/23 19:55 Sodium 131 mmol/L (136-145) L 08/16/23 19:19 Potassium 4.5 mmol/L (3.5-5.1) 08/16/23 19:19 Chloride 90 mmol/L (98-107) L 08/16/23 19:19 Carbon Dioxide 24 mmol/L (21-32) 08/16/23 19:19 Anion Gap 17 (3-11) H 08/16/23 19:19 BUN 64 mg/dl (6-23) H 08/16/23 19:19 Creatinine 8.11 mg/dl (0.6-1.4) H* 08/16/23 19:19 Est Cr Clr Drug Dosing 9.9 ml/min 08/16/23 19:19 Est GFR ( Amer) 7.9 ml/min 08/16/23 19:19 Est GFR (Non-Af Amer) 6.9 ml/min 08/16/23 19:19 BUN/Creatinine Ratio 7.9 (10-20) L 08/16/23 19:19 Glucose 230 mg/dl (70-99(Fasting)) H 08/16/23 19:19 POC Glucose 223 mg/dl (70-99) H 08/17/23 00:42 Calcium 8.7 mg/dl (8.6-10.3) 08/16/23 19:19 Total Bilirubin 0.6 mg/dl (0.2-1.0) 08/16/23 19:19 AST 11 U/L (13-39) L 08/16/23 19:19 ALT 13 U/L (7-52) 08/16/23 19:19 Alkaline Phosphatase 133 U/L (34-104) H 08/16/23 19:19 Total Protein 7.7 gm/dl (6.0-8.3) 08/16/23 19:19 Albumin 4.5 gm/dl (3.4-5.0) 08/16/23 19:19 Globulin 3.2 gm/dl (2.5-4.0) 08/16/23 19:19 Albumin/Globulin Ratio 1.4 (0.9-2) 08/16/23 19:19 Lipase 20 U/L (11-82) 08/16/23 19:19 Adenovirus (PCR) Not Detected (NotDetected) 08/16/23 21:05 B. pertussis DNA (PCR) Not Detected (NotDetected) 08/16/23 21:05 B.parapertussis DNA PCR Not Detected (NotDetected) 08/16/23 21:05 C. pneumoniae DNA (PCR) Not Detected (NotDetected) 08/16/23 21:05 Coronavirus OC43 (PCR) Not Detected (NotDetected) 08/16/23 21:05 Coronavirus HKU1 (PCR) Not Detected (NotDetected) 08/16/23 21:05 Coronavirus 229E (PCR) Not Detected (NotDetected) 08/16/23 21:05 SARS-CoV-2 (PCR) Not Detected (NotDetected) 08/16/23 21:05 Coronavirus NL63 (PCR) Not Detected (NotDetected) 08/16/23 21:05 Human Metapneumovir PCR Not Detected (NotDetected) 08/16/23 21:05 Influenza Type A (PCR) Not Detected (NotDetected) 08/16/23 21:05 Influenza Type B (PCR) Not Detected (NotDetected) 08/16/23 21:05 M. pneumoniae (PCR) Not Detected (NotDetected) 08/16/23 21:05 Parainfluenza 1 (PCR) Not Detected (NotDetected) 08/16/23 21:05 Parainfluenza 2 (PCR) Not Detected (NotDetected) 08/16/23 21:05 Parainfluenza 3 (PCR) Not Detected (NotDetected) 08/16/23 21:05 Parainfluenza 4 (PCR) Not Detected (NotDetected) 08/16/23 21:05 RSV (PCR) Not Detected (NotDetected) 08/16/23 21:05 Entero/Rhino (PCR) Not Detected (NotDetected) 08/16/23 21:05 Impressions KUB X-Ray 08/16/23 19:34 XR KUB/Abdomen 1 view CLINICAL HISTORY: abd TECHNIQUE: 1 view of the abdomen was obtained. Comparison: Comparison is made to abdomen radiograph 08/26/2023 FINDINGS: Right femoral fixation hardware is seen. The osseous structures are grossly unremarkable. The bowel gas pattern is nonobstructive. Small stool burden is seen. IMPRESSION: Nonobstructive bowel gas pattern. ACT 112: Negative or not required by law. Electronically signed by: Maninder Cohen M.D. 08/16/2023 7:54 PM Code Status & VTE Plan Code Status Full code VTE Prophylaxis Plan VTE Prophylaxis will be ordered: Yes PG Care Time/CCT Total # of Minutes Spent Total Time Spent with Patient: Total time spent is greater than 50% in coordination of care (as documented) at patient's floor/unit and/or counseling patient: Coding Level of Care Code 21682 INT INP/OBS CARE 75MIN Diagnoses Vomiting R11.10 Nausea presence: unspecified Vomiting type: unspecified Cardiomyopathy I42.9 Pleural effusion, bilateral J90 Coronary artery disease involving alturas coronary artery of alturas heart without angina pectoris I25.10 Coronary Disease-Associated Artery/Lesion type: [place] artery [place] vs. 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 transplanted heart: alturas heart Associated angina: without angina Qualified Code(s): I25.10 - Atherosclerotic heart disease of alturas coronary artery without angina pectoris (5) GERD (gastroesophageal reflux disease) Esophagitis presence: without esophagitis Qualified Code(s): K21.9 - Gastro- esophageal reflux disease without esophagitis
[2023-08-16] MEDS ORDERED: PROCHLORPERAZINE 10 MG in SYRINGE 8 ML IV PRN (21:23)
[2023-08-16] MEDS ORDERED: METOCLOPRAMIDE HCL INJ 5 MG/ML 2 ML VIAL IV PRN (21:23)
[2023-08-16 22:24] LABS: Adenovirus PCR Not Detected (NotDetected); Bordetella parapertussis PCR Not Detected (NotDetected); Bordetella pertussis PCR Not Detected (NotDetected); Chlamydia pneumoniae PCR Not Detected (NotDetected); Coronavirus 229E PCR Not Detected (NotDetected); Coronavirus CoV-2 (COVID19)PCR Not Detected (NotDetected); Coronavirus HKU1 PCR Not Detected (NotDetected); Coronavirus NL63 PCR Not Detected (NotDetected); Coronavirus OC43PCR Not Detected (NotDetected); Human Metapneumovirus PCR Not Detected (NotDetected); Influenza A PCR Not Detected (NotDetected); Influenza B PCR Not Detected (NotDetected); Mycoplasma pneumoniae PCR Not Detected (NotDetected); Parainfluenza Virus 1 PCR Not Detected (NotDetected); Parainfluenza Virus 2 PCR Not Detected (NotDetected); Parainfluenza Virus 3 PCR Not Detected (NotDetected); Parainfluenza Virus 4 PCR Not Detected (NotDetected); Respiratory Syncytial VirusPCR Not Detected (NotDetected); Rhinovirus/Enterovirus PCR Not Detected (NotDetected)
[2023-08-17] MEDS ORDERED: ONDANSETRON INJ 2 MG/ML 2 ML VIAL IV PRN (00:04)
[2023-08-17] MEDS ORDERED: CARBOHYDRATES FOR HYPOGLYCEMIA PO PRN (00:04)
[2023-08-17] MEDS ORDERED: GLUCOSE 40% GEL 15 GM TUBE PO PRN (00:04)
[2023-08-17] MEDS ORDERED: ACETAMINOPHEN 325 MG TAB PO PRN (00:04)
[2023-08-17] MEDS ORDERED: GLUCOSE 10 TAB/TUBE PO PRN (00:04)
[2023-08-17] MEDS ORDERED: DEXTROSE 50% 50 ML SYRINGE IV PRN (00:04)
[2023-08-17] MEDS ORDERED: GLUCAGON FOR INJ 1 MG VIAL SQ PRN (00:04)
[2023-08-17] MEDS: diphenhydrAMINE 50 MG/ML VIAL IV PRN (00:16)
[2023-08-17] MEDS: SODIUM CHLORIDE 0.9% 500 ML IV SCH (00:24)
[2023-08-17] MEDS: INSULIN ASPART PER UNIT CHARGE SC SCH (00:59)
[2023-08-17 06:42] LABS: Basophils # (auto) 0.04 K/uL (0.00-0.20); Basophils % (auto) 0.5 %; Eosinophils # (auto) 0.03 K/uL (0.00-0.50); Eosinophils % (auto) 0.4 %; Hematocrit (blood only) 32.4 % (42.0-52.0); Hemoglobin 10.9 g/dl (14.0-18.0); Immature Granulocytes # (auto) 0.04 K/uL (0.01-0.20); Immature Granulocytes % (auto) 0.5 %; Lymphocytes # (auto) 1.25 K/uL (1.20-3.40); Lymphocytes % (auto) 14.9 %; Mean Corpuscular Hemoglobin 33.2 pg (25.0-34.0); Mean Corpuscular Hgb Conc 33.6 g/dL (32.0-36.0); Mean Corpuscular Volume 98.8 fL (80.0-100.0); Monocytes # (auto) 0.52 K/uL (0.11-0.59); Monocytes % (auto) 6.2 %; Neutrophils # (auto) 6.49 K/uL (1.40-6.50); Neutrophils % (auto) 77.5 %; Platelet Count 290 K/uL (130-400); RDW Coefficient of Variation 13.8 % (11.5-14.5); RDW Standard Deviation 50.9 fL (36.4-46.3); Red Blood Count 3.28 M/uL (4.70-6.10); White Blood Count 8.37 K/ul (4.8-10.8)
[2023-08-17 07:30] LABS: Albumin Globulin Ratio 1.5 (0.9-2); Albumin Level 3.8 gm/dl (3.4-5.0); BUN Creatinine Ratio 8.3 (10-20); Bilirubin,Total 0.4 mg/dl (0.2-1.0); Calcium 7.9 mg/dl (8.6-10.3); Creatinine Clr Calc Pharmacy 9.2 ml/min; Est GFR (African American) 7.2 ml/min; Est GFR (Non-African American) 6.2 ml/min; Globulin 2.5 gm/dl (2.5-4.0); Magnesium 2.3 mg/dl (1.7-2.4); Potassium 4.4 mmol/L (3.5-5.1); Total Protein 6.3 gm/dl (6.0-8.3)
[2023-08-17 07:45] LABS: Partial Thromboplastin Time 28 Seconds (21-31); Prothrombin Time 10.9 Seconds (9.0-12.0)
[2023-08-17] MEDS: HEPARIN SOD 5,000 UNIT/0.5 ML VIAL SQ SCH (09:09)
[2023-08-17] MEDS ORDERED: SODIUM CHLORIDE 0.9% 1,000 ML IV PRN ×2 (11:34→11:51)
--- NOTE | 2023-08-17 13:04 | Nephrology Consultation ---
Date of Consultation August 17, 2023 Assessment & Plan (1) ESRD (end stage renal disease): ESRD on hemodialysis Thursday. Today is his regular day and will do later today as per his regular schedule. No evidence of major fluid overload or electrolyte imbalance. will try to take about 3.5 kilos off which is usually what he gains over the weekend. AV fistula seems fine (2) Vomiting: he has had intractable nausea vomiting requiring too many to count hospital admission in the past. extensively evaluated and treated and at this point the working diagnosis is severe gastroparesis. continue current medication. In fact he has outpatient appointment with Gastroenterology tomorrow History of Present Illness Reason for Consultation: ESRD on dialysis admitted with severe nausea vomiting Attending Physician: Lilliam Allen MD History of Present Illness 52-year-old male with longstanding history of diabetes with ESRD as well as severe diabetic gastroparesis and too many to count admissions previously for severe nausea vomiting. unfortunately he came to the hospital for exactly same reason. he normally gets dialysis Thursday and is scheduled to get later today as an inpatient. denies any other new symptoms or issues. dialysis through AV fistula review of systems----- other than intractable chronic nausea vomiting 12 systems reviewed and negative physical examination awake alert oriented x3 no respiratory distress normal speech and able to give detailed account of his medical problems mucous membrane moist neck is supple no JVD chest bilateral clear to auscultation CVS S1 and S2 regular soft systolic murmur heard abdomen is soft nontender extremities no edema skin did not show any obvious rash Allergies Allergy/AdvReac Type Severity Reaction Status Date / Time shellfish derived Allergy Severe anaphylaxis Verified 08/16/23 21:05 codeine Allergy Intermediate Hives Verified 08/16/23 21:05 promethazine Allergy Intermediate itchy/hives Verified 08/16/23 21:05 Home Medications Medication Instructions Recorded Confirmed Type acetaminophen 325 mg capsule 650 mg PO Q4H PRN Pain (Scale 09/28/20 08/16/23 History Score 1-3) cholecalciferol (vitamin D3) 50 50 mcg PO QAM 10/25/21 08/16/23 History mcg (2,000 unit) capsule (Vitamin D3) sertraline 100 mg tablet 100 mg PO QAM 12/29/21 08/16/23 History sertraline 25 mg tablet 25 mg PO QAM 12/29/21 08/16/23 History atorvastatin 10 mg tablet 10 mg PO QAM #90 tabs 08/11/22 08/16/23 Rx ondansetron HCl 4 mg tablet 8 mg (2 x 4 mg) PO Q4 PRN nausea 08/14/22 08/16/23 Rx or vomiting #60 tabs melatonin 1 mg tablet 4 mg PO HS PRN Sleep 09/18/22 08/16/23 History midodrine 5 mg tablet 5 mg PO .COMPLEX 02/19/23 08/16/23 History mirtazapine 7.5 mg tablet 7.5 mg PO HS 02/19/23 08/16/23 History insulin regular human 100 unit/mL 30 unit (0.3 mL) subcut DAILY #15 02/20/23 08/16/23 Rx (3 mL) subcutaneous pen (Novolin R mL FlexPen) carvedilol 12.5 mg tablet (Coreg) 12.5 mg PO BID #30 tabs 04/08/23 08/16/23 Rx pantoprazole 40 mg tablet,delayed 40 mg PO QAM #90 tabs 04/16/23 08/16/23 Rx release (Protonix) lorazepam 0.5 mg tablet 0.5 mg PO Q8H PRN severe nausea 04/24/23 08/16/23 Rx #30 tabs amlodipine 10 mg tablet 10 mg PO QAM 05/19/23 08/16/23 History insulin glargine 100 unit/mL (3 17 unit (0.17 mL) subcut QAM #15 mL 06/22/23 08/16/23 Rx mL) subcutaneous pen (Basaglar KwikPen U-100 Insulin) trimethobenzamide 300 mg capsule 300 mg PO TID PRN nausea and 07/02/23 08/16/23 History vomiting lanthanum 500 mg chewable tablet 500 mg PO UD 08/09/23 08/16/23 History Patient History Medical History 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 Lor Guadalupe; [facility]) History of COVID-2022--mild symptoms, no symptoms now Orthopnea Musculoskeletal chest pain History of nephrolithiasis Personal history of diabetic foot ulcer Diabetic peripheral neuropathy associated with type 1 diabetes mellitus Cyclical vomiting syndrome Chronic pleural effusion PleurX catheter placed 01/24/21--removed 07/2021 History of pulmonary embolism 11/2020; unk etiology; was on warfarin (taken off 05/2021) Urolithiasis Hypertension Junctional rhythm Diabetic gastroparesis 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, with long-term current use of insulin Anemia of chronic disease Anxiety Kidney stone on right side hx Lumbar radiculopathy AV fistula left upper arm GERD (gastroesophageal reflux disease) Diabetic retinopathy Depression CAD (coronary artery disease) mild, non-obstructive CAD per 10/2018 cardiac cath> [facility] Surgical History History of colonoscopy S/P arteriovenous (AV) fistula creation left arm History of cataract surgery History of esophagogastroduodenoscopy (EGD) (~03/08/20) History of open reduction and internal fixation (ORIF) procedure right hip Nausea and vomiting after administration of anesthetic agent History of lithotripsy History of cardiac cath x2---07/28/23 @ [facility], no stents--per pt done for transplant list and 10/2018 @ [facility] (no stents) History of hip surgery left HIP ARTHROSCOPY H/O shoulder surgery RIGHT History of appendectomy Family History Grandfather Myocardial infarction Grandfather (Maternal) Family history of diabetes mellitus Uncle Myocardial infarction Father Hypertension Mother Kidney stone Other No family history of adverse response to anesthesia Denies family history of Colon cancer Ovarian cancer Prostate cancer Breast cancer Social History Smoking Status: Never smoker Tobacco Type: Smokeless Tobacco (Dip or Chew) Second Hand Exposure: No; Do You Dip or Chew Tobacco: No (quit 2018); Hx Alcohol Use: No Hx Substance Use: No Preferred Language: Croatian Communication Ability: Effective Visual Impairment: No Limitations Hearing Ability: Normal [employer] Required: No Beliefs That Will Affect Care: None marital status: Current Living Situation: Parent Current Living Situation Comment: with alycia and babita parents current occupational status: disabled How many Children do You have: 2 Feels Safe at Home: Yes Safety Concerns: Feels Safe At This Time Childhood Exposure to Second-Hand Smoke: Yes Diet: regular caffeine: Yes Dental Care, Regularly: No Physical Activity Frequency: 1-2 Times per Week Seatbelt Use: always Sunscreen Use: Yes Gender Identity: Male Assistive Devices: None Results & Data Vital Signs (Past 12 Hours) Vital Signs Pulse Resp BP Pulse Ox Pulse Ox O2 Del Method O2 Del Method 08/17/23 08:34 80 L Room Air, Oxymask 08/17/23 08:00 75 16 97 08/17/23 07:50 75 144/73 H 98 08/17/23 07:23 77 08/17/23 04:57 100 Oxymask 08/17/23 04:56 78 L Room Air 08/17/23 02:00 78 18 173/83 H 96 Room Air O2 Flow Rate O2 Flow Rate 08/17/23 08:34 0 08/17/23 08:00 08/17/23 07:50 08/17/23 07:23 08/17/23 04:57 3 08/17/23 04:56 0 08/17/23 02:00 Laboratory Results reviewed Diagnostic Findings reviewed (2) Vomiting Nausea presence: unspecified Vomiting type: unspecified Qualified Code(s): R 11.10 - Vomiting, unspecified
[2023-08-17] MEDS: HEPARIN SOD (PORCINE) 1000 UNIT/ML IV SCH (14:34)
[2023-08-17] MEDS: HEPARIN SOD (PORCINE) 1000 UNIT/ML IV ONE (14:34)
--- NOTE | 2023-08-17 17:41 | Discharge Summary ---
Date of Service August 17, 2023 Admission HPI Per Admitting Provider The patient is a 53-year-old male with past medical history including ESRD on HD, diabetic gastroparesis, diabetic retinopathy, chronic bilateral pleural effusion, CAD, GERD, anxiety, anemia chronic disease, cardiomyopathy, and lumbar radiculopathy. Patient has had several similar presentations in the past without discernible cause. Presumptively this is associated with diabetic gastroparesis. Patient denies any unusual food intakes or any recent travels or sick exposures. Principal Diagnosis diabetic gastroparesis Discharge Exam The patient is awake, but does not answer questions, well developed and well nourished, normocephalic and atraumatic, lying in bed and in no acute distress. HEENT--PERRL, EOMI, mucous membranes and oropharynx dry. Neck--supple. No JVD. No bruits. Thyroid normal, trachea midline, no adenopathy. Heart--normal S1 and S2. No murmurs, rubs or gallops. Lungs--clear bilaterally, no respiratory distress, no accessory muscle use. Abdomen--normal bowel sounds and soft. Nontender. Nondistended Extremities--No edema Dermatologic--normal skin turgor, normal color, no abnormal lymph nodes, no rash. Neurologic--cranial nerves II through XII grossly intact. Rheumatologic--normal range of motion. Psychiatric--awake, but does not participate Discharge Data Allergies Allergy/AdvReac Type Severity Reaction Status Date / Time shellfish derived Allergy Severe anaphylaxis Verified 08/18/23 14:23 codeine Allergy Intermediate Hives Verified 08/18/23 14:23 promethazine Allergy Intermediate itchy/hives Verified 08/18/23 14:23 Consultations 08/16/23 21:11 ED Decision to Admit Stat 08/17/23 00:04 Consult Nephrology Routine Hospital Course (1) Vomiting: resolved (2) Cardiomyopathy: stable (3) Pleural effusion, bilateral: (4) CAD (coronary artery disease): denies chest pain, continue home meds (5) GERD (gastroesophageal reflux disease): (6) 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 overnight, reassess in the morning He received 500 cc normal saline from the ED Place on NSS at 60 mL/h x 500 mL No signs of active infection Nurses reports that when they were adjusting his IV, he looked at them blankly, and then started retching into his bag ESRD on HD- [facility] He is due for dialysis tomorrow morning, Thursday morning, and his mother asks that he be discharged shortly after that so he can make appointments that he has on Thursday. The patient keeps his eyes closed, but nods his head to that to be acceptable for him Diabetes mellitus- Placed on Accu-Cheks with NovoLog SSI Hold regular insulin Reduce glargine from 17 to 8 units subcu every morning Patient tends to be brittle, would rather his blood sugar run a little high, with sugar presently is 230 Anxiety/depression- Resume sertraline, mirtazapine, melatonin, lorazepam, in the morning if the patient is able to take oral medications CAD/hypertension- For tonight, hold amlodipine, carvedilol, as blood pressure is relatively low, and the patient would not have any oral intake overnigh Of note, patient has been accepted into a program at [facility] for kidney and pancreas transplant patient nausea, vomiting resolved, he had HD, toelrated diet and wants to be discharged Total Time Total Time Spent Total Time Spent (In Minutes): 35 minutes Discharge Plan Discharge Items Patient Disposition: Home - Self-Care Reason For Visit: NAUSEA,VOMITING Discharge Diagnosis: intractable nausea, vomiting Activity: Resume your previous activity Bathing: No limitations Driving/Machine Use: No limitations Non-emergency contact: Primary Care Provider Call non-emergency contact if: you have a fever Follow-up/Referrals: Genet Cool MD [Primary Care Provider] - 08/27/23 1:30 pm (APPT. WITH Marline ROYAL PA-C.) Diet: Dialysis Renal Addtl Attending Provider Instructions: diet as tolerated Pending Studies at Discharge: No Stand-Alone Forms: My gamesGRABR, Smoking Cessation Medications and DC Order Prescriptions: Continued acetaminophen 325 mg capsule 650 mg PO Q4H PRN (Reason: Pain (Scale Score 1-3)) atorvastatin 10 mg tablet 10 mg PO QAM Qty: 90 1RF pantoprazole [Protonix] 40 mg tablet,delayed release (DR/EC) 40 mg PO QAM Qty: 90 1RF insulin glargine [Basaglar KwikPen U-100 Insulin] 100 unit/mL (3 mL) insulin pen 17 unit SUBCUT QAM MDD 17 Qty: 15 3RF Patient Comments: 17 units amlodipine 10 mg tablet 10 mg PO QAM lorazepam 0.5 mg tablet 0.5 mg PO Q8H PRN (Reason: severe nausea) Qty: 30 0RF trimethobenzamide 300 mg capsule 300 mg PO TID PRN (Reason: nausea and vomiting) mirtazapine 7.5 mg tablet 7.5 mg PO HS midodrine 5 mg tablet 5 mg PO .COMPLEX Rx Instructions: 5 mg orally as needed at dialysis; Novolin R FlexPen 100 unit/mL (3 mL) insulin pen 30 unit subcut DAILY Qty: 15 5RF Patient Comments: 9 units ondansetron HCl 4 mg tablet 8 mg PO Q4 PRN (Reason: nausea or vomiting) Qty: 60 2RF melatonin 1 mg tablet 4 mg PO HS PRN (Reason: Sleep) sertraline 100 mg tablet 100 mg PO QAM Rx Instructions: TOTAL DOSE 125 MG--TAKES WITH 25 MG TAB. sertraline 25 mg tablet 25 mg PO QAM Rx Instructions: TOTAL DOSE 125 MG--TAKES WITH 100 MG TAB. carvedilol [Coreg] 12.5 mg tablet 12.5 mg PO BID Qty: 30 3RF Rx Instructions: must administer with a meal/food cholecalciferol (vitamin D3) [Vitamin D3] 50 mcg (2,000 unit) capsule 50 mcg PO QAM lanthanum 500 mg tablet,chewable 500 mg PO UD Rx Instructions: 1 tablet with meals and 1 with snacks= 6 tab for the day Discharge Orders: Discharge Order (Routine); Ordered 08/17/23 Ordered By: Lilliam Dockery/Other Patient Handouts: Self-Care for Vomiting and Diarrhea, ED Vomiting (Adult) Admission Data Admit Date/Time: 08/16/23 21:19 Attending Provider: Lilliam Allen Admit Provider: Colton Guajardo Primary Care Provider: Genet Cool Other Providers: Colton Guajardo; Arcenio Ortiz Other Interventions: Discharge Summary Assessment (RN) Last Done: 08/17/23 17:40 Coding Level of Care Code 51342 IN/OBS DISCH 30 MIN/LESS Diagnoses Vomiting R11.10 Nausea presence: unspecified Vomiting type: unspecified Cardiomyopathy I42.9 Pleural effusion, bilateral J90 Coronary artery disease involving [place] coronary artery of [place] heart without angina pectoris I25.10 Associated angina: without angina Coronary Disease-Associated Artery/Lesion type: [place] artery [place] vs. 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
== END 2023-08-17 18:58 | disposition home or self-care (01) | DRG 73 ==
LOC: ED 18:38 → EDINP 21:19 → SUATTDRO 21:19 → 2N 08-17 00:05

== ENCOUNTER 2023-09-19 15:03 | Inpatient (IN) ==
--- NOTE | 2023-09-19 15:53 | Emergency Department Note ---
Impression & Plan Hyperglycemia due to type 1 diabetes mellitus, Diabetic gastroparesis, Hypertensive urgency, ESRD (end stage renal disease) ED Provider Note NAME: JERARDO PEREZ AGE: 53 SEX: M : 1970 ARRIVES VIA: Ambulance INFORMANT: Patient ED PROVIDER(S): Massimo Nathan MD CHIEF COMPLAINT: Nausea vomiting, hyperglycemia PLAN: Disposition: Admit MEDICAL DECISION MAKING: The patient is a pleasant 53-year-old gentleman with a past medical history of end-stage renal disease on hemodialysis, type 1 diabetes, history of DKA, gastroparesis who presents to the emergency department for evaluation of intractable nausea and vomiting which began this morning. Patient reports he has been taking his insulin as prescribed. He reports he did take his blood pressure medications this morning. He reports he has been going to dialysis as scheduled and went yesterday. Family member at the bedside reports that they needed to give him fluids back after dialysis as his blood pressure was low and he an episode of fainting. He denies any cp, cough, congestion. On evaluation the patient is uncomfortable no acute distress, with temperature of 37.6 and blood pressure 210s/90s and vital signs otherwise stable. He has generalized abdominal discomfort without discrete tenderness. EKG without overt acute ischemia. Chest x-ray negative for acute cardiopulmonary process. WBC and platelets within normal limits. H/H similar to prior range values. VBG demonstrates pH of 7.6 likely related to acid loss from intractable vomiting as well as a component of hyperventilation due to his discomfort. Chemistry with bicarb within normal limits. Glucose was elevated at 500 with sodium of 133 and corrects to 140. Respiratory viral panel/[employer] was negative. CT of the head negative for acute abnormality. CT abd pelvis demonstrates evidence of nonspecific proctitis and otherwise no acute abnormalities. Symptoms with some improvement/control after IV Pepcid, Zofran in addition to diphenhydramine and Reglan. Blood sugar still elevated however in the 400s. IV fluid hydration deferred at this time given patient's hypertension in the setting of anuric with ESRD on hemodialysis. Insulin drip ordered and IV labetalol for blood pressure control. Patient agrees with plan for admission for further management. Case was discussed with Dr. Cervantes, [facility] hospitalist, who will evaluate the patient for admission. Triage Nursing notes reviewed and agree them. Prior/external medical records reviewed Vital Signs: reviewed Differential diagnosis: Gastroenteritis, food borne illness, infections, appendicitis, diverticulitis, inflammatory bowel disease, obstruction, GI bleed, biliary pathology, volvulus, as well as other pathologies. ER treatment provided: See below. Diagnostics interpreted by me: ECG: Sinus rhythm with first-degree block, 86 bpm, no ectopy, LVH, no overt ST elevation or depression, QTc 509, QRS 90. Cardiac Monitoring: An order for continuous cardiac monitoring was placed and demonstrated Sinus rhythm with first-degree block, 86 bpm, no ectopy. Laboratory studies: See below Imaging studies: See below Consultation(s): Dr. Cervantes, [facility] hospitalist HPI: The patient is a pleasant 53-year-old gentleman with a past medical history of end-stage renal disease on hemodialysis, type 1 diabetes, history of DKA, gastroparesis who presents to the emergency department for evaluation of intractable nausea and vomiting which began this morning. Patient reports he has been taking his insulin as prescribed. He reports he did take his blood pressure medications this morning. He reports he has been going to dialysis as scheduled and went yesterday. Family member at the bedside reports that they needed to give him fluids back after dialysis as his blood pressure was low and he an episode of fainting. He denies any cough, congestion. ROS: See above HPI for pertinent positives & negatives. A total of 10 systems reviewed and were otherwise negative. VITALS:See Below PHYSICAL EXAMINATION: GENERAL: Awake, alert, uncomfortable-appearing, in no distress HENT: Normocephalic, atraumatic. Oropharynx with dry mucous membranes and otherwise unremarkable. EYES: Normal conjunctiva. Sclera non-icteric. NECK: Supple. No nuchal rigidity. FROM. No JVD. RESPIRATORY: Clear to auscultation. CARDIAC: Regular rate, normal rhythm. Extremities warm and well perfused. Pulses equal. LUE AV fistula with palpable thrill. ABDOMEN: Soft, non-distended. No tenderness to palpation. No rebound or guarding. No masses. MUSCULOSKELETAL: Chest examination reveals no tenderness. The back is symmetrical on inspection without obvious abnormality. There is no CVA tenderness to palpation. No joint edema. LOWER EXTREMITIES: Calves are equal size bilaterally and non-tender. No edema. No discoloration. NEURO: Normal sensorium. No sensory or motor deficits noted. SKIN: No rash or jaundice noted. ED COURSE: Critical Care: I have personally spent greater than 35 minutes of critical care time in the direct management of this patient. This includes bedside care, interpretation of diagnostic studies, and testing, discussion with consultants, patient, and family members, and other required patient management activities. This 35 minutes is in excess of all separately billable procedures. Massimo Nathan MD Past Med/Surg History Medical History History of pulmonary embolism 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, with long-term current use of insulin ESRD (end stage renal disease) History of nephrolithiasis Personal history of diabetic foot ulcer Diabetic peripheral neuropathy associated with type 1 diabetes mellitus Cyclical vomiting syndrome Chronic pleural effusion Urolithiasis Hypertension Junctional rhythm Diabetic gastroparesis 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, with long-term current use of insulin Anemia of chronic disease Anxiety Kidney stone on right side Lumbar radiculopathy AV fistula GERD (gastroesophageal reflux disease) Diabetic retinopathy Depression CAD (coronary artery disease) Surgical History History of colonoscopy S/P arteriovenous (AV) fistula creation History of cataract surgery History of esophagogastroduodenoscopy (EGD) (~03/08/20) History of open reduction and internal fixation (ORIF) procedure Nausea and vomiting after administration of anesthetic agent History of lithotripsy History of cardiac cath History of hip surgery H/O shoulder surgery History of appendectomy Family History Grandfather Myocardial infarction Grandfather (Maternal) Family history of diabetes mellitus Uncle Myocardial infarction Father Hypertension Mother Kidney stone Other No family history of adverse response to anesthesia Denies family history of Colon cancer Ovarian cancer Prostate cancer Breast cancer Social History (Updated 08/27/23 @ 13:33 by Deena Barboza LPN) Smoking Status: Unknown if ever smoked Tobacco Type: Smokeless Tobacco (Dip or Chew) Second Hand Exposure: No; Do You Dip or Chew Tobacco: No (quit 2019); Hx Alcohol Use: No Hx Substance Use: No Preferred Language: Irish Communication Ability: Effective Visual Impairment: No Limitations Hearing Ability: Normal Spray Gun Repairer Required: No Beliefs That Will Affect Care: None marital status: Current Living Situation: Parent Current Living Situation Comment: with rachele parents current occupational status: disabled How many Children do You have: 2 Other Information That Helps Us Care for You: No Feels Safe at Home: Yes Safety Concerns: Feels Safe At This Time Childhood Exposure to Second-Hand Smoke: Yes Diet: regular caffeine: Yes Dental Care, Regularly: No Physical Activity Frequency: 1-2 Times per Week Seatbelt Use: always Sunscreen Use: Yes Gender Identity: Male Assistive Devices: Glasses Allergies Allergies Allergy/AdvReac Type Severity Reaction Status Date / Time shellfish derived Allergy Severe anaphylaxis Verified 09/12/23 17:40 codeine Allergy Intermediate Hives Verified 09/12/23 17:40 promethazine Allergy Intermediate itchy/hives Verified 09/12/23 17:40 Home Meds Home Medications Medication Instructions Recorded Confirmed acetaminophen 325 mg capsule 650 mg PO Q4H PRN Pain (Scale 09/28/20 09/19/23 Score 1-3) sertraline 100 mg tablet 100 mg PO QAM 12/29/21 09/19/23 sertraline 25 mg tablet 25 mg PO QAM 12/29/21 09/19/23 melatonin 1 mg tablet 4 mg PO HS PRN Sleep 09/18/22 09/19/23 midodrine 5 mg tablet 5 mg PO .COMPLEX 02/19/23 09/19/23 mirtazapine 7.5 mg tablet 7.5 mg PO HS 02/19/23 09/19/23 lanthanum 500 mg chewable tablet 500 mg PO DIRECTED 08/09/23 09/19/23 insulin glargine 100 unit/mL (3 20 unit subcut QAM 09/12/23 09/19/23 mL) subcutaneous pen (Basaglar KwikPen U-100 Insulin) insulin regular human 100 unit/mL 0 sliding scale dose subcut TIDM 09/12/23 09/19/23 (3 mL) subcutaneous pen (Novolin R FlexPen) Previous Rx's Medication Instructions Recorded atorvastatin 10 mg tablet 10 mg PO QAM #90 tabs 08/11/22 ondansetron HCl 4 mg tablet 8 mg (2 x 4 mg) PO Q4 PRN nausea 08/14/22 or vomiting #60 tabs carvedilol 12.5 mg tablet (Coreg) 12.5 mg PO BID #30 tabs 04/08/23 pantoprazole 40 mg tablet,delayed 40 mg PO QAM #90 tabs 04/16/23 release (Protonix) lorazepam 0.5 mg tablet 0.5 mg PO Q8H PRN severe nausea 04/24/23 #30 tabs Results & Data (ED) Vital Signs Vital Signs - 24 hr 09/19/23 15:13 09/19/23 15:41 09/19/23 15:46 Temperature 37.6 C H Temperature Source Axillary Pulse Rate 82 82 88 Respiratory Rate 20 12 12 Respiratory Effort / Characteristics Non-Labored Spontaneous Respiratory Depth Normal Blood Pressure 216/99 H 239/112 H 220/85 H Blood Pressure Mean 138 154 130 Blood Pressure Position Lying Pulse Oximetry 100 100 100 Oxygen Delivery Method Room Air Sepsis Recent Fever Within 48 Hours Yes Sepsis New/Unexplained Change in Mental Status No Sepsis Action Taken by Nursing No Action Required 09/19/23 15:49 09/19/23 16:00 09/19/23 16:15 Temperature Temperature Source Pulse Rate 84 86 86 Respiratory Rate 14 10 L 13 Respiratory Effort / Characteristics Respiratory Depth Blood Pressure 218/109 H 216/100 H 225/102 H Blood Pressure Mean 145 138 143 Blood Pressure Position Pulse Oximetry 100 100 98 Oxygen Delivery Method Sepsis Recent Fever Within 48 Hours Sepsis New/Unexplained Change in Mental Status Sepsis Action Taken by Nursing 09/19/23 16:27 09/19/23 16:30 09/19/23 16:45 Temperature Temperature Source Pulse Rate 80 87 79 Respiratory Rate 22 20 Respiratory Effort / Characteristics Respiratory Depth Blood Pressure 201/92 H 218/112 H Blood Pressure Mean 128 147 Blood Pressure Position Pulse Oximetry 98 Oxygen Delivery Method Sepsis Recent Fever Within 48 Hours Sepsis New/Unexplained Change in Mental Status Sepsis Action Taken by Nursing 09/19/23 17:15 09/19/23 18:07 09/19/23 18:11 Temperature 37.4 C Temperature Source Oral Pulse Rate 83 81 Respiratory Rate 10 L 12 Respiratory Effort / Characteristics Respiratory Depth Blood Pressure 212/95 H 207/94 H Blood Pressure Mean 134 131 Blood Pressure Position Pulse Oximetry 98 98 Oxygen Delivery Method Sepsis Recent Fever Within 48 Hours Sepsis New/Unexplained Change in Mental Status Sepsis Action Taken by Nursing 09/19/23 18:15 09/19/23 18:30 09/19/23 18:45 Temperature Temperature Source Pulse Rate 80 76 78 Respiratory Rate 13 15 17 Respiratory Effort / Characteristics Respiratory Depth Blood Pressure 209/102 H 216/97 H 218/96 H Blood Pressure Mean 137 136 136 Blood Pressure Position Pulse Oximetry 97 94 96 Oxygen Delivery Method Sepsis Recent Fever Within 48 Hours Sepsis New/Unexplained Change in Mental Status Sepsis Action Taken by Nursing 09/19/23 19:00 09/19/23 19:06 09/19/23 19:17 Temperature Temperature Source Pulse Rate 80 78 77 Respiratory Rate 14 16 Respiratory Effort / Characteristics Respiratory Depth Blood Pressure 206/110 H 206/110 H 157/52 H Blood Pressure Mean 142 87 Blood Pressure Position Pulse Oximetry 98 100 Oxygen Delivery Method Sepsis Recent Fever Within 48 Hours Sepsis New/Unexplained Change in Mental Status Sepsis Action Taken by Nursing 09/19/23 19:30 Temperature Temperature Source Pulse Rate 77 Respiratory Rate 10 L Respiratory Effort / Characteristics Respiratory Depth Blood Pressure 219/130 H Blood Pressure Mean 159 Blood Pressure Position Pulse Oximetry 100 Oxygen Delivery Method Sepsis Recent Fever Within 48 Hours Sepsis New/Unexplained Change in Mental Status Sepsis Action Taken by Nursing Laboratory Data 09/19/23 15:39 09/19/23 22:36 Lab Results 09/19/23 09/19/23 09/19/23 Range/Units 15:10 15:39 15:48 WBC 7.69 (4.8-10.8) K/ul RBC 3.37 L (4.70-6.10) M/uL Hgb 11.3 L (14.0-18.0) g/dl POC Hgb (14.0-18.0) g/dl Hct 33.3 L (42.0-52.0) % POC Hct (42-52) % MCV 98.8 (80.0-100.0) fL MCH 33.5 (25.0-34.0) pg MCHC 33.9 (32.0-36.0) g/dL RDW Std Deviation 49.4 H (36.4-46.3) fL RDW Coeff of Kami 13.6 (11.5-14.5) % Plt Count 310 (130-400) K/uL MPV 9.0 L (9.4-12.4) fL Immature Gran % (Auto) 0.4 % Neut % (Auto) 76.8 % Lymph % (Auto) 13.4 % Elbert % (Auto) 7.4 % Eos % (Auto) 1.3 % Baso % (Auto) 0.7 % Neut # (Auto) 5.91 (1.40-6.50) K/uL Lymph # (Auto) 1.03 L (1.20-3.40) K/uL Elbert # (Auto) 0.57 (0.11-0.59) K/uL Eos # (Auto) 0.10 (0.00-0.50) K/uL Baso # (Auto) 0.05 (0.00-0.20) K/uL Immature Gran # (Auto) 0.03 (0.01-0.20) K/uL VBG pH 7.61 H (7.36-7.41) VBG pCO2 33 L (38-50) mmHg VBG pO2 41 mmHg VBG HCO3 33 mmol/L VBG O2 Saturation 62.9 % VBG Base Excess 11.4 mEq/L POC Sodium (135-144) mmol/L Sodium 133 L (136-145) mmol/L POC Potassium (3.3-5.0) mmol/L Potassium 4.0 (3.5-5.1) mmol/L POC Chloride (101-112) mmol/L Chloride 93 L (98-107) mmol/L Carbon Dioxide 25 (21-32) mmol/L POC Total CO2 (24-31) mmol/L Anion Gap 15 H (3-11) POC Anion Gap (16-25) mmol/L POC BUN (7-18) mg/dl BUN 47 H (6-23) mg/dl Creatinine 5.95 H* (0.6-1.4) mg/dl POC Creatinine (0.6-1.3) mg/dl Est Cr Clr Drug Dosing 13.9 ml/min Est GFR ( Amer) 11.5 ml/min Est GFR (Non-Af Amer) 9.9 ml/min BUN/Creatinine Ratio 7.9 L (10-20) Glucose 518 H* (70-99(Fasting)) mg/dl POC Glucose 464 H* (70-99) mg/dl POC Glucose (other) (70-99) mg/dl Calcium 8.9 (8.6-10.3) mg/dl POC Ioniz Calcium Peterson (1.12-1.32) mmol/l Phosphorus 2.1 L (2.5-4.9) mg/dl Magnesium 2.3 (1.7-2.4) mg/dl Total Bilirubin 0.6 (0.2-1.0) mg/dl AST 11 L (13-39) U/L ALT 11 (7-52) U/L Alkaline Phosphatase 118 H (34-104) U/L Total Protein 7.2 (6.0-8.3) gm/dl Albumin 4.0 (3.4-5.0) gm/dl Globulin 3.2 (2.5-4.0) gm/dl Albumin/Globulin Ratio 1.3 (0.9-2) Adenovirus (PCR) Not Detected (NotDetected) B. pertussis DNA (PCR) Not Detected (NotDetected) B.parapertussis DNA PCR Not Detected (NotDetected) C. pneumoniae DNA (PCR) Not Detected (NotDetected) Coronavirus OC43 (PCR) Not Detected (NotDetected) Coronavirus HKU1 (PCR) Not Detected (NotDetected) Coronavirus 229E (PCR) Not Detected (NotDetected) SARS-CoV-2 (PCR) Not Detected (NotDetected) Coronavirus NL63 (PCR) Not Detected (NotDetected) Human Metapneumovir PCR Not Detected (NotDetected) Influenza Type A (PCR) Not Detected (NotDetected) Influenza Type B (PCR) Not Detected (NotDetected) M. pneumoniae (PCR) Not Detected (NotDetected) Parainfluenza 1 (PCR) Not Detected (NotDetected) Parainfluenza 2 (PCR) Not Detected (NotDetected) Parainfluenza 3 (PCR) Not Detected (NotDetected) Parainfluenza 4 (PCR) Not Detected (NotDetected) RSV (PCR) Not Detected (NotDetected) Entero/Rhino (PCR) Not Detected (NotDetected) 09/19/23 09/19/23 09/19/23 Range/Units 15:58 16:35 19:01 WBC (4.8-10.8) K/ul RBC (4.70-6.10) M/uL Hgb (14.0-18.0) g/dl POC Hgb 11.9 L (14.0-18.0) g/dl Hct (42.0-52.0) % POC Hct 35 L (42-52) % MCV (80.0-100.0) fL MCH (25.0-34.0) pg MCHC (32.0-36.0) g/dL RDW Std Deviation (36.4-46.3) fL RDW Coeff of Kami (11.5-14.5) % Plt Count (130-400) K/uL MPV (9.4-12.4) fL Immature Gran % (Auto) % Neut % (Auto) % Lymph % (Auto) % Elbert % (Auto) % Eos % (Auto) % Baso % (Auto) % Neut # (Auto) (1.40-6.50) K/uL Lymph # (Auto) (1.20-3.40) K/uL Elbert # (Auto) (0.11-0.59) K/uL Eos # (Auto) (0.00-0.50) K/uL Baso # (Auto) (0.00-0.20) K/uL Immature Gran # (Auto) (0.01-0.20) K/uL VBG pH (7.36-7.41) VBG pCO2 (38-50) mmHg VBG pO2 mmHg VBG HCO3 mmol/L VBG O2 Saturation % VBG Base Excess mEq/L POC Sodium 132 L (135-144) mmol/L Sodium (136-145) mmol/L POC Potassium 3.9 (3.3-5.0) mmol/L Potassium (3.5-5.1) mmol/L POC Chloride 93 L (101-112) mmol/L Chloride (98-107) mmol/L Carbon Dioxide (21-32) mmol/L POC Total CO2 25 (24-31) mmol/L Anion Gap (3-11) POC Anion Gap 19.0 (16-25) mmol/L POC BUN 38 H (7-18) mg/dl BUN (6-23) mg/dl Creatinine (0.6-1.4) mg/dl POC Creatinine 6.8 H* (0.6-1.3) mg/dl Est Cr Clr Drug Dosing ml/min Est GFR ( Amer) ml/min Est GFR (Non-Af Amer) ml/min BUN/Creatinine Ratio (10-20) Glucose (70-99(Fasting)) mg/dl POC Glucose 474 H* 499 H* (70-99) mg/dl POC Glucose (other) 483 H* (70-99) mg/dl Calcium (8.6-10.3) mg/dl POC Ioniz Calcium Peterson 1.01 L (1.12-1.32) mmol/l Phosphorus (2.5-4.9) mg/dl Magnesium (1.7-2.4) mg/dl Total Bilirubin (0.2-1.0) mg/dl AST (13-39) U/L ALT (7-52) U/L Alkaline Phosphatase (34-104) U/L Total Protein (6.0-8.3) gm/dl Albumin (3.4-5.0) gm/dl Globulin (2.5-4.0) gm/dl Albumin/Globulin Ratio (0.9-2) Adenovirus (PCR) (NotDetected) B. pertussis DNA (PCR) (NotDetected) B.parapertussis DNA PCR (NotDetected) C. pneumoniae DNA (PCR) (NotDetected) Coronavirus OC43 (PCR) (NotDetected) Coronavirus HKU1 (PCR) (NotDetected) Coronavirus 229E (PCR) (NotDetected) SARS-CoV-2 (PCR) (NotDetected) Coronavirus NL63 (PCR) (NotDetected) Human Metapneumovir PCR (NotDetected) Influenza Type A (PCR) (NotDetected) Influenza Type B (PCR) (NotDetected) M. pneumoniae (PCR) (NotDetected) Parainfluenza 1 (PCR) (NotDetected) Parainfluenza 2 (PCR) (NotDetected) Parainfluenza 3 (PCR) (NotDetected) Parainfluenza 4 (PCR) (NotDetected) RSV (PCR) (NotDetected) Entero/Rhino (PCR) (NotDetected) 09/19/23 Range/Units 19:02 WBC (4.8-10.8) K/ul RBC (4.70-6.10) M/uL Hgb (14.0-18.0) g/dl POC Hgb (14.0-18.0) g/dl Hct (42.0-52.0) % POC Hct (42-52) % MCV (80.0-100.0) fL MCH (25.0-34.0) pg MCHC (32.0-36.0) g/dL RDW Std Deviation (36.4-46.3) fL RDW Coeff of Kami (11.5-14.5) % Plt Count (130-400) K/uL MPV (9.4-12.4) fL Immature Gran % (Auto) % Neut % (Auto) % Lymph % (Auto) % Elbert % (Auto) % Eos % (Auto) % Baso % (Auto) % Neut # (Auto) (1.40-6.50) K/uL Lymph # (Auto) (1.20-3.40) K/uL Elbert # (Auto) (0.11-0.59) K/uL Eos # (Auto) (0.00-0.50) K/uL Baso # (Auto) (0.00-0.20) K/uL Immature Gran # (Auto) (0.01-0.20) K/uL VBG pH (7.36-7.41) VBG pCO2 (38-50) mmHg VBG pO2 mmHg VBG HCO3 mmol/L VBG O2 Saturation % VBG Base Excess mEq/L POC Sodium (135-144) mmol/L Sodium (136-145) mmol/L POC Potassium (3.3-5.0) mmol/L Potassium (3.5-5.1) mmol/L POC Chloride (101-112) mmol/L Chloride (98-107) mmol/L Carbon Dioxide (21-32) mmol/L POC Total CO2 (24-31) mmol/L Anion Gap (3-11) POC Anion Gap (16-25) mmol/L POC BUN (7-18) mg/dl BUN (6-23) mg/dl Creatinine (0.6-1.4) mg/dl POC Creatinine (0.6-1.3) mg/dl Est Cr Clr Drug Dosing ml/min Est GFR ( Amer) ml/min Est GFR (Non-Af Amer) ml/min BUN/Creatinine Ratio (10-20) Glucose (70-99(Fasting)) mg/dl POC Glucose 497 H* (70-99) mg/dl POC Glucose (other) (70-99) mg/dl Calcium (8.6-10.3) mg/dl POC Ioniz Calcium Peterson (1.12-1.32) mmol/l Phosphorus (2.5-4.9) mg/dl Magnesium (1.7-2.4) mg/dl Total Bilirubin (0.2-1.0) mg/dl AST (13-39) U/L ALT (7-52) U/L Alkaline Phosphatase (34-104) U/L Total Protein (6.0-8.3) gm/dl Albumin (3.4-5.0) gm/dl Globulin (2.5-4.0) gm/dl Albumin/Globulin Ratio (0.9-2) Adenovirus (PCR) (NotDetected) B. pertussis DNA (PCR) (NotDetected) B.parapertussis DNA PCR (NotDetected) C. pneumoniae DNA (PCR) (NotDetected) Coronavirus OC43 (PCR) (NotDetected) Coronavirus HKU1 (PCR) (NotDetected) Coronavirus 229E (PCR) (NotDetected) SARS-CoV-2 (PCR) (NotDetected) Coronavirus NL63 (PCR) (NotDetected) Human Metapneumovir PCR (NotDetected) Influenza Type A (PCR) (NotDetected) Influenza Type B (PCR) (NotDetected) M. pneumoniae (PCR) (NotDetected) Parainfluenza 1 (PCR) (NotDetected) Parainfluenza 2 (PCR) (NotDetected) Parainfluenza 3 (PCR) (NotDetected) Parainfluenza 4 (PCR) (NotDetected) RSV (PCR) (NotDetected) Entero/Rhino (PCR) (NotDetected) Administered Medications Hydralazine HCl (Hydralazine 10 Mg Tab) 10 mg PO Q6H PRN PRN Reason: hypertension Stop: 10/19/23 21:29 Last Admin: 09/19/23 21:43 Dose: 10 mg Documented By: ROLF Lorazepam 0.5 mg/ Syringe 0.5 mls @ 2 mls/min IV Q8H PRN PRN Reason: Nausea And Vomiting Stop: 10/19/23 21:22 Last Admin: 09/19/23 21:43 Dose: 2 mls/min Documented By: ROLF Lactated Ringer's (Lr) 1,000 mls @ 80 mls/hr IV .[id number] JACKI Stop: 09/20/23 09:59 Last Admin: 09/19/23 23:36 Dose: 80 mls/hr Documented By: ROLF Mirtazapine (Mirtazapine Tab 15 Mg Tab) 7.5 mg PO HS JACKI Stop: 10/19/23 21:29 Last Admin: 09/19/23 21:43 Dose: 7.5 mg Documented By: ROLF Discontinued Medications Diphenhydramine HCl (Diphenhydramine 50 Mg/Ml Vial) 25 mg IV NOW STA Stop: 09/19/23 17:27 Last Admin: 09/19/23 17:33 Dose: 25 mg Documented By: CPB Diphenhydramine HCl (Diphenhydramine 50 Mg/Ml Vial) 25 mg IV NOW STA Stop: 09/19/23 19:43 Last Admin: 09/19/23 19:56 Dose: 25 mg Documented By: CPB Famotidine (Pepcid 20mg Iv Push) 20 mg in 5 mls @ 2.5 mls/min IV NOW STA Stop: 09/19/23 16:06 Last Admin: 09/19/23 16:12 Dose: 2.5 mls/min Documented By: TOSHIA Acetaminophen (Ofirmev) 1,000 mg in 100 mls @ 400 mls/hr IV NOW STA Stop: 09/19/23 16:19 Last Infusion: 09/19/23 18:12 Dose: Infused Documented By: Admin: 09/19/23 16:12 Dose: 400 mls/hr Documented By: TOSHIA Insulin Human Regular 250 (units/ Sodium Chloride) 250 mls @ 7 mls/hr IV .Q24H JACKI; Protocol Stop: 10/19/23 18:59 Last Titration: 09/19/23 23:33 Dose: Infused Documented By: ROLF Co-signed By: DMM Titration: 09/19/23 23:25 Dose: 3.4 units/hr, 3.4 mls/hr Documented By: ROLF Co-signed By: MH Titration: 09/19/23 22:45 Dose: 0 units/hr, 0 mls/hr Documented By: ROLF Co-signed By: KISHA Titration: 09/19/23 21:52 Dose: 5.6 units/hr, 5.6 mls/hr Documented By: ROLF Co-signed By: MARINO Admin: 09/19/23 19:24 Dose: 7 units/hr, 7 mls/hr Documented By: CPB Co-signed By: TOSHIA Insulin Human Regular (Novolin-R Bolus From Bag) 7 units IV ONE ONE Stop: 09/19/23 19:16 Last Admin: 09/19/23 19:30 Dose: 7 units Documented By: CPB Co-signed By: TOSHIA Labetalol HCl (Labetalol Hcl Iv 5 Mg/Ml 20ml) 10 mg IV NOW STA Stop: 09/19/23 18:54 Last Admin: 09/19/23 19:06 Dose: 10 mg Documented By: CPB Co-signed By: TAMIKA Metoclopramide HCl (Metoclopramide Hcl Inj 5 Mg/Ml 2 Ml Vial) 5 mg IV ONE ONE Stop: 09/19/23 17:28 Last Admin: 09/19/23 17:33 Dose: 5 mg Documented By: CPB Miscellaneous (Dka Goal Range 150-250 Mg/Dl) 1 each N/A ONE ONE Stop: 09/19/23 18:47 Last Admin: 09/19/23 21:25 Dose: 1 each Documented By: ROLF Miscellaneous (Stat Iv Infusion Titration Per Protocol) 1 each N/A NOW STA Stop: 09/19/23 18:47 Last Admin: 09/19/23 21:25 Dose: 1 each Documented By: ROLF Ondansetron HCl (Ondansetron Inj 2 Mg/Ml 2 Ml Vial) 4 mg IV NOW STA Stop: 09/19/23 16:06 Last Admin: 09/19/23 16:12 Dose: 4 mg Documented By: TOSHIA Imaging Data Radiologist's Impression: Chest X-Ray 09/19/23 15:41 XR chest 1V portable HISTORY: 53 years-old Male fever, esrd acute fever with nausea and vomiting COMPARISON: 08/10/2023 TECHNIQUE: AP view the chest FINDINGS: Cardiac silhouette is enlarged. No pneumothorax, pleural effusion or airspace consolidation. Bones of the chest appear grossly intact. IMPRESSION: No acute process. ACT 112: Negative or not required by law. The above report was generated using voice recognition software. It may contain grammatical, syntax or spelling errors. Electronically signed by: Justus Martinez M.D. 09/19/2023 4:08 PM Abdomen/Pelvis CT 09/19/23 16:[address] WITHOUT CONTRAST HISTORY: Acute generalized abdominal pain with nausea and vomiting abd n/v, sepsis TECHNIQUE: Multiaxial CT images of the abdomen and pelvis were performed without contrast. A dose lowering technique was utilized adhering to the principles of ALARA. COMPARISON STUDY: CT abdomen and pelvis 03/14/2023, CT chest 08/09/2023. FINDINGS: Cardiomegaly with decreased attenuation of the cardiac blood pool suggestive of anemia. Pectus excavatum. Gynecomastia. 4 mm solid nodules in the basal left lower lobe on image 17 series 5 is unchanged from 08/09/2023. There is no free air. Limited exam without the use of IV contrast. Unremarkable spleen, pancreas and adrenal glands. Increased density of the liver is unchanged. Cholelithiasis without CT evidence of acute cholecystitis. Cortical thinning of the kidneys with bilateral hypodense lesions suggestive of cysts. There are a few punctate nonobstructing calculi noted within the bilateral kidneys. There is an 8 mm calculus within the right renal pelvis without significant hydronephrosis. No ureteral calculi identified. Circumferential urinary bladder wall thickening with partial distention. Prostatomegaly. Atherosclerosis of the aorta. No lymphadenopathy. Nonspecific distal esophageal wall thickening. Gastric wall thickening with partial distention. Mild nonspecific rectal wall thickening noted. Air-fluid levels noted throughout the large bowel. Colonic diverticulosis. Appendectomy. No small bowel wall thickening. Unremarkable soft tissues. No acute fracture. Right proximal femoral ORIF hardware. Unchanged appearance of the chronic thoracolumbar compression deformities. IMPRESSION: 1. There is an 8 mm calculus within the right renal pelvis. No significant associated hydronephrosis. 2. Bilateral nephrolithiasis. 3. Prostamegaly with evidence of chronic bladder outlet obstruction. 4. Fluid-filled loops of large bowel with nonspecific rectal wall thickening redemonstrated. Correlate clinically to exclude a nonspecific proctitis. 5. No bowel obstruction or pneumoperitoneum. 6. Cholelithiasis. 7. Additional findings as above. ACT 112: Negative or not required by law. The above report was generated using voice recognition software. It may contain grammatical, syntax or spelling errors. Electronically signed by: Justus Martinez M.D. 09/19/2023 6:[address] 09/19/23 16:57 CT head/brain wo con CLINICAL HISTORY: 53 years-old Male with esrd, n/v, wilkerson. Acute headache with nausea and vomiting TECHNIQUE: Multiple axial CT images of the head were obtained without contrast. A dose lowering technique was utilized adhering to the principles of ALARA. CT DOSE: 1403.89 mGy.cm COMPARISON: 03/15/2023 FINDINGS: No acute intracranial hemorrhage, midline shift, intracranial mass, hydrocephalus, territorial ischemia or abnormal extra-axial collection. The calvarium is intact. Bilateral lens repair. The paranasal sinuses, mastoid air cells, and middle ear cavities are clear. IMPRESSION: No acute intracranial abnormality. ACT 112: Negative or not required by law. The above report was generated using voice recognition software. It may contain grammatical, syntax or spelling errors. Electronically signed by: Justus Martinez M.D. 09/19/2023 6:09 PM Discharge Plan Visit Data Chief Complaint: Hyperglycemia Stated Complaint: HYPERGLYCEMIA ED Provider: aMssimo Nathan Discharge Problem: Hyperglycemia due to type 1 diabetes mellitus, Diabetic gastroparesis, Hypertensive urgency, ESRD (end stage renal disease) Patient Disposition: Admitted As Inpatient Discharge Instructions Interventions: ED Discharge Assessment Last Done: 09/19/23 21:01
[2023-09-19 16:00] LABS: Base Excess VBG 11.4 mEq/L; HCO3 VBG 33 mmol/L; Oxygen Saturation VBG 62.9 %; PCO2 VBG 33 mmHg (38-50); PO2 VBG 41 mmHg; pH VBG 7.61 (7.36-7.41)
--- NOTE | 2023-09-19 16:09 | XRay Report ---
XR chest 1V portable HISTORY: 53 years-old Male fever, esrd acute fever with nausea and vomiting COMPARISON: 08/10/2023 TECHNIQUE: AP view the chest FINDINGS: Cardiac silhouette is enlarged. No pneumothorax, pleural effusion or airspace consolidation. Bones of the chest appear grossly intact. IMPRESSION: No acute process. ACT 112: Negative or not required by law. The above report was generated using voice recognition software. It may contain grammatical, syntax o r spelling errors. Electronically signed by: Justus Martinez M.D. 09/19/2023 4:08 PM
[2023-09-19 16:10] LABS: Basophils # (auto) 0.05 K/uL (0.00-0.20); Basophils % (auto) 0.7 %; Eosinophils % (auto) 1.3 %; Hematocrit (blood only) 33.3 % (42.0-52.0); Hemoglobin 11.3 g/dl (14.0-18.0); Immature Granulocytes # (auto) 0.03 K/uL (0.01-0.20); Immature Granulocytes % (auto) 0.4 %; Lymphocytes # (auto) 1.03 K/uL (1.20-3.40); Lymphocytes % (auto) 13.4 %; Mean Corpuscular Hemoglobin 33.5 pg (25.0-34.0); Mean Corpuscular Hgb Conc 33.9 g/dL (32.0-36.0); Mean Corpuscular Volume 98.8 fL (80.0-100.0); Monocytes # (auto) 0.57 K/uL (0.11-0.59); Monocytes % (auto) 7.4 %; Neutrophils # (auto) 5.91 K/uL (1.40-6.50); Neutrophils % (auto) 76.8 %; Platelet Count 310 K/uL (130-400); RDW Coefficient of Variation 13.6 % (11.5-14.5); RDW Standard Deviation 49.4 fL (36.4-46.3); Red Blood Count 3.37 M/uL (4.70-6.10); White Blood Count 7.69 K/ul (4.8-10.8)
[2023-09-19] MEDS: FAMOTIDINE 20MG IV PUSH 20 MG/5 ML SYR IV STA (16:12)
[2023-09-19] MEDS: ONDANSETRON INJ 2 MG/ML 2 ML VIAL IV STA (16:12)
[2023-09-19] MEDS: ACETAMINOPHEN 1,000 MG/100 ML VIAL IV STA (16:12)
[2023-09-19 16:28] LABS: iSTAT Creatinine 6.8 mg/dl (0.6-1.3); iSTAT Hemoglobin 11.9 g/dl (14.0-18.0); iSTAT Ionized Calcium 1.01 mmol/l (1.12-1.32); iSTAT Potassium 3.9 mmol/L (3.3-5.0)
[2023-09-19 16:33] LABS: Albumin Globulin Ratio 1.3 (0.9-2); BUN Creatinine Ratio 7.9 (10-20); Bilirubin,Total 0.6 mg/dl (0.2-1.0); Calcium 8.9 mg/dl (8.6-10.3); Creatinine Clr Calc Pharmacy 13.9 ml/min; Est GFR (African American) 11.5 ml/min; Est GFR (Non-African American) 9.9 ml/min; Globulin 3.2 gm/dl (2.5-4.0); Magnesium 2.3 mg/dl (1.7-2.4); Phosphorus 2.1 mg/dl (2.5-4.9); Total Protein 7.2 gm/dl (6.0-8.3)
--- OUTSIDE RECORDS SUMMARY | 2023-09-19 16:45 | External Medical Summary | Summary of Care ---
Author Name Unknown Organization [facility] Address [address] [place] [address] Phone [phone] Care Team Providers Care Grain Buyer Name Role Phone Genet Cool MD Primary Care Provid er Reason for Visit * Reason Onset Date Comments Advice 09/18/2023 Encounter Details Date Type Department Care Team (Late st Contact Info) Description 09/18/2023 Telephone Vascular Surg [facility] [address] [place] [address] Julian James MD [address] [place] [address] Advice Allergies Active Allergy Reactions Criticality Noted Date Comments Codeine Itching 05/24/2019 Promethazine Hcl Hives 10/19/2010 Shellfish-Derived Products Anaphylaxis High 04/26/20 18 documented as of this encounter (statuses as of 09/18/2023) Medications Medication Sig Dispensed Refills Start Date [...] in the morning. 0 12/16/2018 Active B Vjdormk-L-Yltoo Acid (RENAL VITAMIN) 1 MG Capsule TAKE 1 CAPSULE BY MOUTH EVERY DAY 90 Cap 3 08/01/2019 Active Pantoprazole Sodium 40 MG Oral Tablet [...] mouth in the morning. 0 11/11/2021 Active Midodrine HCl 5 MG Oral Tablet [...] by mouth in the morning. 0 Active Carvedilol 25 MG Oral Tablet (Coreg) Take 1 Tablet by mouth 2 times a day with morning and evening meals. Hold medication if sbp <100 after 3 readings. 0 2023 Active documented as of this encounter (statuses as of 09/18/2023) Active Problems Problem Noted Date Diagnosed Date [...] compression fracture 03/15/2016 ETOH abuse 04/05/2012 Overview: [facility] Admission with DKA March 2012 DKA, type [...] as of this encounter (statuses as of 09/18/2023) Resolved Problems Problem Noted Date Diagnosed Date [...] as of this encounter (statuses as of 09/18/2023) Immunizations Name Administration Dates Next Due COVID-19 [...] (15 years old or older) No 06/29/19 24 Cognitive Status Response Date of Assessm ent Because of a physical, menta l, or emotional condition, do you have serious difficulty concentrating, remembering, or making decisions? (5 years old or older) No 06/29/2023 documented as of this encounter Miscellaneous Notes * Telephone Encounter - Ani Kang CRNP - 09/18/2023 4:07 PM EDT Patient known to Erika. Please schedule left arm fistulagram per the request below. NPO after midnight No insulin on morning of surgery Will place order in case once scheduled. * Telephone Encounter - Becky Nunes OSA - 09/18/2023 3:54 PM EDT Good Afternoon, My name is Radha and I am the new Vascular General Contractor here at [facility]. I am emailing you in regards to a mutual patient - Sourav De Los Santos his is 1970. I was hoping to gethim in for a Fistulagram. We have been having some issues with his venous pressure while on treatment and the patient will intermittently complain of it stinging in certain areas of the venous site. Despite rotating sites we have been unable to achieve his prescribed BFR x2 weeks. The patient is supposed to be running at a BFR of 550 and we have be unable to get him above a BFR of 400. We have spoken with Stephanie Yang NP and she has put an order in for it. If you need any further informationor have any questions please feel free to reach out via email or phone. Thank you! Radha ?? documented in this encounter Plan of Treatment Upcoming Encounters Date Type Department Care Team (Latest Contact Info) Description 4 10:15 AM EDT Office Visit Ophthalmology, [facility] [address] [place] [address] Dewayne Flores DO [address] [place] [address] 4 11:45 AM EDT Office Visit Urology, [facility] [address] [place] [address] Sha Rodrigues MD [address] [place] [address] 4 10:13 AM EDT Hospital Encounter OR [facility], Operating Room, [facility] - 4th Floor [address] [place] [address] Tim Browne MD [address] [place] [address] 4 10:13 AM EDT - 4 11:39 AM EDT Surgery OR [facility], Operating Room, [facility] - 4th Floor [address] [place] [address] Tim Browne MD [address] [place] [address] ESOPHAGOGASTRODUODENOSCOPY (EGD), FLEXIBLE, TRANSORAL, DIAGNOSTIC 4 9:30 AM EDT Office Visit [facility]enterolog y, [facility] [place] [address] Ximena Greenberg CRNP [address] [facility] [place] [address] Scheduled Procedures Name Priority Associated Diagnoses Date/Ti ok ESOPHAGOGASTRODUODENOSCOPY ( EGD), FLEXIBLE, TRANSORAL, DIAGNOSTIC GERD (gastroesophageal reflux disease) 11/03/2023 10:13 AM EDT LOWER ESOPHAGEAL MYOTOMY, TR ANSORAL (IE, PERORAL ENDOSCOPIC MYOTOMY [POEM]) GERD (gastroesophageal reflux disease) 11/03/2023 10:13 AM EDT COLONOSCOPY FLEXIBLE PROXIMA L DIAGNOSTIC [...] exists Zoster Vaccines (1 of 2) 2020 Diabetic Eye Exam 11/20/2023 11/19/2022, , 08/20/2021, Additional history exists HbA1c 01/12/2024 07/14/2023, 06/09, 10/15/2022, Additional history exists Influenza Vaccine (FLU shot) (Season Ended) 2024 04/08/2022, 03/25/2021, 03/05/2020, Additional history exists Lipid Panel 07/17/2025 07/17/2020, 07/2019, 09/12/2002 Colonoscopy 11/20/2032 11/20/2022, 11/20/2022 Colorectal Cancer Screening 11/20/2032 COVID-19 Vaccine Completed 03/30/2023, 10/2020, 07/17/2020 GARDASIL-HPV IMMUNIZATION SERIES Aged Out No longer eligible based on patient's age to complete this topic MENINGOCOCCAL (MENACTRA/MENVEO) Aged Out No longer eligible based on patient's age to complete this topic documented as of this encounter Medical Devices Not on filedocumented as of this encounter Advance Directives Documents on File Type Date Recorded Patient Dairy Nutritionist Expl anation Power of Mmd Unit Teacher 01/15/2021 POWER OF A TTORNEY Latest Code Status on File Code Status Date Activated Date Inactivated Comments Full Code 06/29/2023 8:35 PM 07/01/2023 8:09 PM This order reflects the patients wishes and were consensually agreed upon. Question Answer Comments Discussion of Advance Directives occurred with: Patient Does the patient have a Living Will? No Does the patient have Health Care Power of Mmd Unit Teacher? No Code Status History Code Status Date [...] the patient have Health Care Power of Mmd Unit Teacher? No Full Code 01/13/2021 1:16 PM 01/14/2021 7:45 PM This or afua reflects the patients wishes and were consensually agreed upon. Full Code 11/15/2020 6:43 PM 11/20/2020 7:42 PM This order reflects the patients wishes and were consensually agreed upon. Question Answer Comments Discussion of Advance Directives occurred with: Patient Care Teams Grain Buyer Relationship Specialty Start Date End Date Genet Cool MD [address] [place] [address] [place] [address] PCP - General Internal Medicine 01/06/23 documented as of this encounter
--- OUTSIDE RECORDS SUMMARY | 2023-09-19 16:45 | External Medical Summary | Summary of Care ---
Author Name Unknown Organization [facility] Address [address] [place] [address] Phone [phone] Care Team Providers Care Menhaden Vessel Pilot Name Role Phone Genet Cool MD Primary Care Provid er Reason for Referral * Precert (Within 10 days (routine)) - Authorized Specialty Diagnoses / Procedures Referred By Nica joseph Referred To Contact Radiology Diagnoses ESRD on dialysis ([facility]) Procedures IR VENOUS FISTULOGRAM Stephanie Yang PA-C [address] [facility] [place] [id number] Referral ID Status Reason Start Date Expiration Date V isits Requested Visits Authorized [id number] Authorized 09/14/2023 1 1 Encounter Details Date Type Department Care Team (Late st Contact Info) Description 09/14/2023 Orders Only Nephrology, [facility] [address] [place] [address] Stephanie Yang PA-C [address] [facility] [place] [phone] ESRD on dialysis ([facility])* Allergies Active Allergy Reactions Criticality Noted Date Comments Codeine Itching 05/24/2019 Promethazine Hcl Hives 10/19/2010 Shellfish-Derived Products Anaphylaxis High 04/26/20 18 documented as of this encounter (statuses as of 09/15/2023) Medications Medication Sig Dispensed Refills Start Date End Date Status [facility] STRPIndications:DKA, type 1 (HCC),DM type 1 causing renal disease, not at goal (HCC) check your urine if you feel your sugar is too high and you feel dried up 10 Strip 0 09/21/2013 Active ALANA CHOU FINE MISCIndications:DKA, type 1 (HCC) use 4 [...] in the morning. 0 12/16/2018 Active B Vmfutyy-M-Cbaxw Acid (RENAL VITAMIN) 1 MG Capsule TAKE [...] as of this encounter (statuses as of 09/15/2023) Active Problems Problem Noted Date Diagnosed Date [...] compression fracture 03/15/2016 ETOH abuse 04/05/2012 Overview: [facility] Admission with DKA March 2012 DKA, [...] as of this encounter (statuses as of 09/15/2023) Resolved Problems Problem Noted Date Diagnosed Date [...] as of this encounter (statuses as of 09/15/2023) Immunizations Name Administration Dates Next Due COVID-19 [...] 4 10:15 AM EDT Office Visit Ophthalmology, [facility] [address] [place] [address] Dewayne Flores DO [address] [place] [address] 4 11:45 AM EDT Office Visit Urology, [facility] [address] [place] [address] Sha Rey MD [address] [place] [address] [place] [address] 4 10:13 AM EDT Hospital Encounter OR [facility], Operating Room, [facility] - 4th Floor [address] [place] [address] Tim Browne MD [address] [place] [address] 4 10:13 AM EDT - 4 11:39 AM EDT Surgery OR [facility], Operating Room, [facility] - 4th Floor [address] [place] [address] Tim Browne MD [address] [place] [address] ESOPHAGOGASTRODUODENOSCOPY (EGD), FLEXIBLE, TRANSORAL, DIAGNOSTIC 9:30 AM EDT Office Visit Gastroenterolog Yang funes [facility] [address] [place] [address] Ximena Greenberg CRNP [address] [place] [address] Scheduled Orders Name Type Priority Associated Diagnoses Orde r Schedule IR VENOUS FISTULOGRAM Medical Imaging Routine ESRD on dialysis (HCC) Expected: 09/14/2023, Expires: 10/14/2023 INTRO CATH DIALYSIS CIRCUIT W/TRANSLUM BALLOON ANGIOPLASTY Procedures Routine ESRD on dialysis (HCC) Ordered: 09/15/2023 Scheduled Procedures Name Priority Associated Diagnoses Date/Ti me ESOPHAGOGASTRODUODENOSCOPY ( EGD), FLEXIBLE, TRANSORAL, DIAGNOSTIC GERD [...] 08/20/2021, Additional history exists HbA1c 01/12/2024 07/14/2023, /08/2023, 10/15/2022, Additional history exists Influenza Vaccine (FLU [...] Not on filedocumented as of this encounter Visit Diagnoses Diagnosis ESRD on dialysis (HCC)- Primary End stage renal disease GERD (gastroesophageal reflux disease) Esophageal reflux documented in this encounter Advance Directives Documents on File Type Date Recorded Patient Horticulture Instructor Expl anation Power of Electronic Commerce Specialist 01/15/2021 POWER OF A TTORNEY Latest Code Status on File Code Status Date Activated Date Inactivated Comments Full Code 06/29/2023 8:35 PM 07/01/2023 8:09 PM This order reflects the patients wishes and were consensually agreed upon. Question Answer Comments Discussion of Advance Directives occurred with: Patient Does the patient have a Living Will? No Does the patient have Health Care Power of Electronic Commerce Specialist? No Code Status History Code Status Date [...] the patient have Health Care Power of Electronic Commerce Specialist? No Full Code 01/13/2021 1:16 PM 01/14/2021 7:45 PM This or afua reflects the patients wishes and were consensually agreed upon. Full Code 11/15/2020 6:43 PM 11/20/2020 7:42 PM This order reflects the patients wishes and were consensually agreed upon. Question Answer Comments Discussion of Advance Directives occurred with: Patient Care Teams Menhaden Vessel Pilot Relationship Specialty Start Date End Date Genet Cool MD [address] [place] [address] [place] [address] PCP - General Internal Medicine 01/06/23 documented as of this encounter
--- OUTSIDE RECORDS SUMMARY | 2023-09-19 16:45 | External Medical Summary | Summary of Care ---
Author Name Unknown Organization [facility] Address [address] [place] [address] Phone [phone] Care Team Providers Care Trap Puller Name Role Phone Genet Cool MD Primary Care Provid er Reason for Visit * Reason Onset Date Comments Advice 09/18/2023 Encounter Details Date Type Department Care Team (Late st Contact Info) Description 09/18/2023 Telephone Vascular Surg [facility] [address] [place] [address] Julian James MD [address] [place] [address] Advice Allergies Active Allergy Reactions [...] in the morning. 0 12/16/2018 Active B Qjmeghb-U-Zrpwi Acid (RENAL VITAMIN) 1 MG Capsule TAKE [...] compression fracture 03/15/2016 ETOH abuse 04/05/2012 Overview: [facility] Admission with DKA March 2012 DKA, type [...] Radha and I am the new Vascular Cut Off Saw Operator Metal here at [facility]. I am emailing you in regards to [...] 4 10:15 AM EDT Office Visit Ophthalmology, [facility] [address] [place] [address] Dewayne Flores DO [address] [address] 4 11:45 AM EDT Office Visit Urology, [facility] [address] [place] [address] Sha Rodrigues MD [address] [place] [address] 4 10:13 AM EDT Hospital Encounter OR [facility], Operating Room, [facility] - 4th Floor [address] [place] [address] Tim Browne MD [address] [place] [address] 4 10:13 AM EDT - 4 11:39 AM EDT Surgery OR [facility], Operating Room, [facility] - 4th Floor [address] [place] [address] Tim Browne MD [address] [place] [address] ESOPHAGOGASTRODUODENOSCOPY (EGD), FLEXIBLE, TRANSORAL, DIAGNOSTIC 4 9:30 AM EDT [facility] [place] [address] Ximena Greenberg CRNP [address] [place] [address] Scheduled Procedures Name Priority Associated Diagnoses Date/Ti or ESOPHAGOGASTRODUODENOSCOPY ( EGD), FLEXIBLE, TRANSORAL, DIAGNOSTIC GERD [...] Documents on File Type Date Recorded Patient Ring Sorter Expl anation Power of Ships Or Barges Loader 01/15/2021 POWER OF A TTORNEY Latest Code Status on File Code Status Date Activated Date Inactivated Comments Full Code 06/29/2023 8:35 PM 07/01/2023 8:09 PM This order reflects the patients wishes and were consensually agreed upon. Question Answer Comments Discussion of Advance Directives occurred with: Patient Does the patient have a Living Will? No Does the patient have Health Care Power of Ships Or Barges Loader? No Code Status History Code Status Date [...] the patient have Health Care Power of Ships Or Barges Loader? No Full Code 01/13/2021 1:16 PM 01/14/2021 7:45 PM This or afua reflects the patients wishes and were consensually agreed upon. Full Code 11/15/2020 6:43 PM 11/20/2020 7:42 PM This order reflects the patients wishes and were consensually agreed upon. Question Answer Comments Discussion of Advance Directives occurred with: Patient Care Teams Trap Puller Relationship Specialty Start Date End Date Genet Cool MD [address] [place] [address] [place] [address] PCP - General Internal Medicine 01/06/23 documented as of this encounter
[2023-09-19 17:16] LABS: Adenovirus PCR Not Detected (NotDetected); Bordetella parapertussis PCR Not Detected (NotDetected); Bordetella pertussis PCR Not Detected (NotDetected); Chlamydia pneumoniae PCR Not Detected (NotDetected); Coronavirus 229E PCR Not Detected (NotDetected); Coronavirus CoV-2 (COVID19)PCR Not Detected (NotDetected); Coronavirus HKU1 PCR Not Detected (NotDetected); Coronavirus NL63 PCR Not Detected (NotDetected); Coronavirus OC43PCR Not Detected (NotDetected); Human Metapneumovirus PCR Not Detected (NotDetected); Influenza A PCR Not Detected (NotDetected); Influenza B PCR Not Detected (NotDetected); Mycoplasma pneumoniae PCR Not Detected (NotDetected); Parainfluenza Virus 1 PCR Not Detected (NotDetected); Parainfluenza Virus 2 PCR Not Detected (NotDetected); Parainfluenza Virus 3 PCR Not Detected (NotDetected); Parainfluenza Virus 4 PCR Not Detected (NotDetected); Respiratory Syncytial VirusPCR Not Detected (NotDetected); Rhinovirus/Enterovirus PCR Not Detected (NotDetected)
[2023-09-19] MEDS: METOCLOPRAMIDE HCL INJ 5 MG/ML 2 ML VIAL IV ONE (17:33)
[2023-09-19] MEDS: diphenhydrAMINE 50 MG/ML VIAL IV STA ×2 (17:33→19:56)
--- NOTE | 2023-09-19 18:10 | CT Scan Report ---
CT head/brain wo con CLINICAL HISTORY: 53 years-old Male with esrd, n/v, wilkerson. Acute headache with nausea and vomiting TECHNIQUE: Multiple axial CT images of the head were obtained without contrast. A dose lowering tech nique was utilized adhering to the principles of ALARA. CT DOSE: 1403.89 mGy.cm COMPARISON: 03/15/2023 FINDINGS: No acute intracranial hemorrhage, midline shift, intracranial mass, hydrocephalus, territorial ischem ia or abnormal extra-axial collection. The calvarium is intact. Bilateral lens repair. The paranasal sinuses, mastoid air cells, and middle ear cavities are clear. IMPRESSION: No acute intracranial abnormality. ACT 112: Negative or not required by law. The above report was generated using voice recognition software. It may contain grammatical, syntax o r spelling errors. Electronically signed by: Justus Martinez M.D. 09/19/2023 6:09 PM
--- NOTE | 2023-09-19 18:24 | CT Scan Report ---
ABDOMEN AND PELVIS CT WITHOUT CONTRAST HISTORY: Acute generalized abdominal pain with nausea and vomiting abd n/v, sepsis TECHNIQUE: Multiaxial CT images of the abdomen and pelvis were performed without contrast. A dose lo wering technique was utilized adhering to the principles of ALARA. COMPARISON STUDY: CT abdomen and pelvis 03/14/2023, CT chest 08/09/2023. FINDINGS: Cardiomegaly with decreased attenuation of the cardiac blood pool suggestive of anemia. Pec tus excavatum. Gynecomastia. 4 mm solid nodules in the basal left lower lobe on image 17 series 5 is unchanged from 08/09/2023. There is no free air. Limited exam without the use of IV contrast. Unremarka ble spleen, pancreas and adrenal glands. Increased density of the liver is unchanged. Cholelithiasis without CT evidence of acute cholecystitis. Cortical thinning of the kidneys with bilateral hypodense lesions suggestive of cysts. There are a fe w punctate nonobstructing calculi noted within the bilateral kidneys. There is an 8 mm calculus withi n the right renal pelvis without significant hydronephrosis. No ureteral calculi identified. Circumfe rential urinary bladder wall thickening with partial distention. Prostatomegaly. Atherosclerosis of t he aorta. No lymphadenopathy. Nonspecific distal esophageal wall thickening. Gastric wall thickening with partial distention. Mild nonspecific rectal wall thickening noted. Air-fluid levels noted throughout the large bowel. Colonic diverticulosis. Appendectomy. No small bowel wall thickening. Unremarkable soft tissues. No acute fra cture. Right proximal femoral ORIF hardware. Unchanged appearance of the chronic thoracolumbar compre ssion deformities. IMPRESSION: 1. There is an 8 mm calculus within the right renal pelvis. No significant associated hydronephrosis. 2. Bilateral nephrolithiasis. 3. Prostamegaly with evidence of chronic bladder outlet obstruction. 4. Fluid-filled loops of large bowel with nonspecific rectal wall thickening redemonstrated. Correlat e clinically to exclude a nonspecific proctitis. 5. No bowel obstruction or pneumoperitoneum. 6. Cholelithiasis. 7. Additional findings as above. ACT 112: Negative or not required by law. The above report was generated using voice recognition software. It may contain grammatical, syntax o r spelling errors. Electronically signed by: Justus Martinez M.D. 09/19/2023 6:22 PM
[2023-09-19] MEDS: LABETALOL HCL IV 5 MG/ML 20ML IV STA (19:06)
[2023-09-19] MEDS: INSULIN REGULAR 250 UNITS in SODIUM CHLORIDE 0.9% 247.5 ML IV SCH (19:24)
[2023-09-19] MEDS: NovoLIN-R BOLUS FROM BAG IV ONE (19:30)
--- NOTE | 2023-09-19 19:33 | History & Physical Report ---
Date of Service September 19, 2023 Assessment & Plan (1) Nausea & vomiting: Plan: 53yo male with ESRD on HD, DM-1, cyclic vomiting and gastroparesis presenting with 1 day of nausea/vomiting and diarrhea. Patient unable to tolerate PO. Has had similar admissions in the past. Patient reports some relief with Benadryl and Reglan administered in the ER. Likely secondary to cyclic vomiting and gastroparesis. -Admit to medical with telemetry -Maintain aspiration precautions -Gentle IVF - LR at 80mL/hr x 1L (2) Hyperglycemia due to type 1 diabetes mellitus: Plan: Patient hyperglycemic on arrival. Has mild anion gap. pH alkalemic Insulin gtt initiated in the ER - serial BSG 499 --> 377 --> 270 --> 176. Per review of most recent diabetes note 08/14/23 - goal blood sugar 160-200 -Will discontinue insulin gtt at this time. Patient's laboratory values do not favor DKA -Resume Lantus 20u daily and ISS (3) Hypertension: Plan: Elevated blood pressure -Management of acute nausea and abdominal pain as above -Continue Carvedilol 12.5mg po BID -Hydralazine 10mg PO q 6 hours as needed for blood pressure > 180/110 -Monitor (4) ESRD (end stage renal disease): Plan: Noted. Patient is on HD q M/W/ with last full treatment on Thursday -Monitor renal function. No acute need for HD at this time -Cautious administration of IVF (5) Diabetic gastroparesis: Plan: Patient with gastroparesis, likely cause for ongoing nausea and vomiting -Continue Zofran PRN -Reglan PRN -Ativan PRN -Gentle IVF -Electrolyte repletion as needed -Clear liquid diet ordered (6) GERD (gastroesophageal reflux disease): Plan: Chronic. Stable -Protonix 40mg IV daily History of Present Illness Chief Complaint: nausea, vomiting Primary Care Provider: Genet Cool MD Jorge Alberto De Los Santos is a 53yo male with ESRD on HD q M/W/F, cyclic vomiting syndrome, HTN, GERD and diabetic gastroparesis presenting with nausea and vomiting x 1 day. Symptoms began this morning. He has had multiple episodes of non-bloody/non-bilious vomiting as well a diarrhea. Patient took his insulin this morning. He reports that his blood sugars have been high all day in the 400's. He had HD performed on 09/18/23 and they took off a small amount of fluid but then gave him some IVF back. Patient is vomiting at time of exam. He denies chest pain, SOB. States that he has had some chills. In the ER he is afebrile, hypertensive otherwise HD stable, NAD ER Course: Pepcid 20mg IV Zofran 4mg IV Tylenol 1gm Labetalol 10mg IV Reglan 5mg IV Benadryl 25mg IV x 2 Insulin gtt initiated Allergies Allergy/AdvReac Type Severity Reaction Status Date / Time shellfish derived Allergy Severe anaphylaxis Verified 09/12/23 17:40 codeine Allergy Intermediate Hives Verified 09/12/23 17:40 promethazine Allergy Intermediate itchy/hives Verified 09/12/23 17:40 Home Medications Medication Instructions Recorded Confirmed Type acetaminophen 325 mg capsule 650 mg PO Q4H PRN Pain (Scale 09/28/20 09/19/23 History Score 1-3) sertraline 100 mg tablet 100 mg PO QAM 12/29/21 09/19/23 History sertraline 25 mg tablet 25 mg PO QAM 12/29/21 09/19/23 History atorvastatin 10 mg tablet 10 mg PO QAM #90 tabs 08/11/22 09/19/23 Rx ondansetron HCl 4 mg tablet 8 mg (2 x 4 mg) PO Q4 PRN nausea 08/14/22 09/19/23 Rx or vomiting #60 tabs melatonin 1 mg tablet 4 mg PO HS PRN Sleep 09/18/22 09/19/23 History midodrine 5 mg tablet 5 mg PO .COMPLEX 02/19/23 09/19/23 History mirtazapine 7.5 mg tablet 7.5 mg PO HS 02/19/23 09/19/23 History carvedilol 12.5 mg tablet (Coreg) 12.5 mg PO BID #30 tabs 04/08/23 09/19/23 Rx pantoprazole 40 mg tablet,delayed 40 mg PO QAM #90 tabs 04/16/23 09/19/23 Rx release (Protonix) lorazepam 0.5 mg tablet 0.5 mg PO Q8H PRN severe nausea 04/24/23 09/19/23 Rx #30 tabs lanthanum 500 mg chewable tablet 500 mg PO DIRECTED 08/09/23 09/19/23 History insulin glargine 100 unit/mL (3 20 unit subcut QAM 09/12/23 09/19/23 History mL) subcutaneous pen (Basaglar KwikPen U-100 Insulin) insulin regular human 100 unit/mL 0 sliding scale dose subcut TIDM 09/12/23 09/19/23 History (3 mL) subcutaneous pen (Novolin R FlexPen) Past Med/Surg History Medical History (Updated 09/20/23 @ 02:08 by Marielos Cervantes DO) Hypertension History of pulmonary embolism 11/2020; unk etiology; was on warfarin (taken off 05/2021) 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 Lor Guadalupe; 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 Cyclical vomiting syndrome Chronic pleural effusion PleurX catheter placed 01/24/21--removed 07/2021 Urolithiasis Junctional rhythm Diabetic gastroparesis 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, with long-term current use of insulin Anemia of chronic disease Anxiety Kidney stone on right side hx Lumbar radiculopathy AV fistula left upper arm GERD (gastroesophageal reflux disease) Diabetic retinopathy Depression CAD (coronary artery disease) mild, non-obstructive CAD per 10/2018 cardiac cath> [facility] Surgical History History of colonoscopy S/P arteriovenous (AV) fistula creation left arm History of cataract surgery History of esophagogastroduodenoscopy (EGD) (~03/08/20) History of open reduction and internal fixation (ORIF) procedure right hip Nausea and vomiting after administration of anesthetic agent History of lithotripsy History of cardiac cath x2---07/28/23 @ [facility], no stents--per pt done for transplant list and 10/2018 @ [facility] (no stents) History of hip surgery left HIP ARTHROSCOPY H/O shoulder surgery RIGHT History of appendectomy Family History Grandfather Myocardial infarction Grandfather (Maternal) Family history of diabetes mellitus Uncle Myocardial infarction Father Hypertension Mother Kidney stone Other No family history of adverse response to anesthesia Denies family history of Colon cancer Ovarian cancer Prostate cancer Breast cancer Social History Smoking Status: Unknown if ever smoked Tobacco Type: Smokeless Tobacco (Dip or Chew) Second Hand Exposure: No; Do You Dip or Chew Tobacco: No (quit 2019); Hx Alcohol Use: No Hx Substance Use: No Preferred Language: Urdu Communication Ability: Effective Visual Impairment: No Limitations Hearing Ability: Normal Media Consultant Outside Sales Required: No Beliefs That Will Affect Care: None marital status: Current Living Situation: Parent Current Living Situation Comment: with alycia and babita parents current occupational status: disabled How many Children do You have: 2 Other Information That Helps Us Care for You: No Feels Safe at Home: Yes Safety Concerns: Feels Safe At This Time Childhood Exposure to Second-Hand Smoke: Yes Diet: regular caffeine: Yes Dental Care, Regularly: No Physical Activity Frequency: 1-2 Times per Week Seatbelt Use: always Sunscreen Use: Yes Gender Identity: Male Assistive Devices: Glasses Review of Systems Review of Systems: All systems reviewed & are unremarkable except as noted in HPI & below Physical Exam Physical Exam: General: patient resting comfortably, vomiting, in mild distress Skin: warm, dry, intact, no rashes or lesions HEENT: NC/AT, PERRL, EOMI, anicteric sclera, conjunctiva without injection, external ear normal to inspection and nontender, nares patent, moist mucus membranes, dentition intact, no oropharyngeal lesions, neck supple, trachea midline, no LAD, no thyromegaly, no JVD Heart: +S1/S2, regular, no m/r/g Lungs: equal air entry bilaterally, no rales/rhonchi/wheezes Abd: +BS, soft, NT/ND, no masses/organomegaly/ascites Ext: warm, 2+ pulses in UE/LE bilaterally, no clubbing/cyanosis or edema Neuro: nonfocal, patient AA&O x 4, speech intact, no facial droop, moving all extremities on command with equal strength 5/5 Results & Data Results & Data Vital Signs (Past 12 Hours) Vital Signs Temp Pulse Resp BP Pulse Ox O2 Del Method 09/19/23 19:06 78 206/110 H 09/19/23 18:11 37.4 C 09/19/23 18:07 81 12 207/94 H 98 09/19/23 17:15 83 10 L 212/95 H 98 09/19/23 16:45 79 20 218/112 H 09/19/23 16:30 87 22 201/92 H 98 09/19/23 16:27 80 09/19/23 16:15 86 13 225/102 H 98 09/19/23 16:00 86 10 L 216/100 H 100 09/19/23 15:49 84 14 218/109 H 100 09/19/23 15:46 88 12 220/85 H 100 09/19/23 15:41 82 12 239/112 H 100 09/19/23 15:13 37.6 C H 82 20 216/99 H 100 Room Air Laboratory Results Laboratory Results WBC 7.69 K/ul (4.8-10.8) 09/19/23 15:39 RBC 3.37 M/uL (4.70-6.10) L 09/19/23 15:39 Hgb 11.3 g/dl (14.0-18.0) L 09/19/23 15:39 POC Hgb 11.9 g/dl (14.0-18.0) L 09/19/23 15:58 Hct 33.3 % (42.0-52.0) L 09/19/23 15:39 POC Hct 35 % (42-52) L 09/19/23 15:58 MCV 98.8 fL (80.0-100.0) 09/19/23 15:39 MCH 33.5 pg (25.0-34.0) 09/19/23 15:39 MCHC 33.9 g/dL (32.0-36.0) 09/19/23 15:39 RDW Std Deviation 49.4 fL (36.4-46.3) H 09/19/23 15:39 RDW Coeff of Kami 13.6 % (11.5-14.5) 09/19/23 15:39 Plt Count 310 K/uL (130-400) 09/19/23 15:39 MPV 9.0 fL (9.4-12.4) L 09/19/23 15:39 Immature Gran % (Auto) 0.4 % 09/19/23 15:39 Neut % (Auto) 76.8 % 09/19/23 15:39 Lymph % (Auto) 13.4 % 09/19/23 15:39 Corson % (Auto) 7.4 % 09/19/23 15:39 Eos % (Auto) 1.3 % 09/19/23 15:39 Baso % (Auto) 0.7 % 09/19/23 15:39 Neut # (Auto) 5.91 K/uL (1.40-6.50) 09/19/23 15:39 Lymph # (Auto) 1.03 K/uL (1.20-3.40) L 09/19/23 15:39 Corson # (Auto) 0.57 K/uL (0.11-0.59) 09/19/23 15:39 Eos # (Auto) 0.10 K/uL (0.00-0.50) 09/19/23 15:39 Baso # (Auto) 0.05 K/uL (0.00-0.20) 09/19/23 15:39 Immature Gran # (Auto) 0.03 K/uL (0.01-0.20) 09/19/23 15:39 VBG pH 7.61 (7.36-7.41) H 09/19/23 15:48 VBG pCO2 33 mmHg (38-50) L 09/19/23 15:48 VBG pO2 41 mmHg 09/19/23 15:48 VBG HCO3 33 mmol/L 09/19/23 15:48 VBG O2 Saturation 62.9 % 09/19/23 15:48 VBG Base Excess 11.4 mEq/L 09/19/23 15:48 POC Sodium 132 mmol/L (135-144) L 09/19/23 15:58 Sodium 137 mmol/L (136-145) 09/19/23 22:36 POC Potassium 3.9 mmol/L (3.3-5.0) 09/19/23 15:58 Potassium TNP 09/19/23 22:36 POC Chloride 93 mmol/L (101-112) L 09/19/23 15:58 Chloride 97 mmol/L (98-107) L 09/19/23 22:36 Carbon Dioxide 28 mmol/L (21-32) 09/19/23 22:36 POC Total CO2 25 mmol/L (24-31) 09/19/23 15:58 Anion Gap 12 (3-11) H 09/19/23 22:36 POC Anion Gap 19.0 mmol/L (16-25) 09/19/23 15:58 POC BUN 38 mg/dl (7-18) H 09/19/23 15:58 BUN 53 mg/dl (6-23) H 09/19/23 22:36 Creatinine 6.61 mg/dl (0.6-1.4) H* D 09/19/23 22:36 POC Creatinine 6.8 mg/dl (0.6-1.3) H* 09/19/23 15:58 Est Cr Clr Drug Dosing 12.5 ml/min 09/19/23 22:36 Est GFR ( Amer) 10.1 ml/min 09/19/23 22:36 Est GFR (Non-Af Amer) 8.7 ml/min 09/19/23 22:36 BUN/Creatinine Ratio 8.0 (10-20) L 09/19/23 22:36 Glucose 224 mg/dl (70-99(Fasting)) H 09/19/23 22:36 POC Glucose 176 mg/dl (70-99) H 09/19/23 22:43 POC Glucose (other) 483 mg/dl (70-99) H* 09/19/23 15:58 Calcium 9.1 mg/dl (8.6-10.3) 09/19/23 22:36 POC Ioniz Calcium Peterson 1.01 mmol/l (1.12-1.32) L 09/19/23 15:58 Phosphorus 2.1 mg/dl (2.5-4.9) L 09/19/23 15:39 Magnesium 2.3 mg/dl (1.7-2.4) 09/19/23 15:39 Total Bilirubin 0.6 mg/dl (0.2-1.0) 09/19/23 15:39 AST 11 U/L (13-39) L 09/19/23 15:39 ALT 11 U/L (7-52) 09/19/23 15:39 Alkaline Phosphatase 118 U/L (34-104) H 09/19/23 15:39 Total Protein 7.2 gm/dl (6.0-8.3) 09/19/23 15:39 Albumin 4.0 gm/dl (3.4-5.0) 09/19/23 15:39 Globulin 3.2 gm/dl (2.5-4.0) 09/19/23 15:39 Albumin/Globulin Ratio 1.3 (0.9-2) 09/19/23 15:39 Adenovirus (PCR) Not Detected (NotDetected) 09/19/23 15:48 B. pertussis DNA (PCR) Not Detected (NotDetected) 09/19/23 15:48 B.parapertussis DNA PCR Not Detected (NotDetected) 09/19/23 15:48 C. pneumoniae DNA (PCR) Not Detected (NotDetected) 09/19/23 15:48 Coronavirus OC43 (PCR) Not Detected (NotDetected) 09/19/23 15:48 Coronavirus HKU1 (PCR) Not Detected (NotDetected) 09/19/23 15:48 Coronavirus 229E (PCR) Not Detected (NotDetected) 09/19/23 15:48 SARS-CoV-2 (PCR) Not Detected (NotDetected) 09/19/23 15:48 Coronavirus NL63 (PCR) Not Detected (NotDetected) 09/19/23 15:48 Human Metapneumovir PCR Not Detected (NotDetected) 09/19/23 15:48 Influenza Type A (PCR) Not Detected (NotDetected) 09/19/23 15:48 Influenza Type B (PCR) Not Detected (NotDetected) 09/19/23 15:48 M. pneumoniae (PCR) Not Detected (NotDetected) 09/19/23 15:48 Parainfluenza 1 (PCR) Not Detected (NotDetected) 09/19/23 15:48 Parainfluenza 2 (PCR) Not Detected (NotDetected) 09/19/23 15:48 Parainfluenza 3 (PCR) Not Detected (NotDetected) 09/19/23 15:48 Parainfluenza 4 (PCR) Not Detected (NotDetected) 09/19/23 15:48 RSV (PCR) Not Detected (NotDetected) 09/19/23 15:48 Entero/Rhino (PCR) Not Detected (NotDetected) 09/19/23 15:48 Impressions Chest X-Ray 09/19/23 15:41 XR chest 1V portable HISTORY: 53 years-old Male fever, esrd acute fever with nausea and vomiting COMPARISON: 08/10/2023 TECHNIQUE: AP view the chest FINDINGS: Cardiac silhouette is enlarged. No pneumothorax, pleural effusion or airspace consolidation. Bones of the chest appear grossly intact. IMPRESSION: No acute process. ACT 112: Negative or not required by law. The above report was generated using voice recognition software. It may contain grammatical, syntax or spelling errors. Electronically signed by: Justus Martinez M.D. 09/19/2023 4:08 PM Abdomen/Pelvis CT 09/19/23 16:[address] WITHOUT CONTRAST HISTORY: Acute generalized abdominal pain with nausea and vomiting abd n/v, sepsis TECHNIQUE: Multiaxial CT images of the abdomen and pelvis were performed without contrast. A dose lowering technique was utilized adhering to the principles of ALARA. COMPARISON STUDY: CT abdomen and pelvis 03/14/2023, CT chest 08/09/2023. FINDINGS: Cardiomegaly with decreased attenuation of the cardiac blood pool suggestive of anemia. Pectus excavatum. Gynecomastia. 4 mm solid nodules in the basal left lower lobe on image 17 series 5 is unchanged from 08/09/2023. There is no free air. Limited exam without the use of IV contrast. Unremarkable spleen, pancreas and adrenal glands. Increased density of the liver is unchanged. Cholelithiasis without CT evidence of acute cholecystitis. Cortical thinning of the kidneys with bilateral hypodense lesions suggestive of cysts. There are a few punctate nonobstructing calculi noted within the bilateral kidneys. There is an 8 mm calculus within the right renal pelvis without significant hydronephrosis. No ureteral calculi identified. Circumferential urinary bladder wall thickening with partial distention. Prostatomegaly. Atherosclerosis of the aorta. No lymphadenopathy. Nonspecific distal esophageal wall thickening. Gastric wall thickening with partial distention. Mild nonspecific rectal wall thickening noted. Air-fluid levels noted throughout the large bowel. Colonic diverticulosis. Appendectomy. No small bowel wall thickening. Unremarkable soft tissues. No acute fracture. Right proximal femoral ORIF hardware. Unchanged appearance of the chronic thoracolumbar compression deformities. IMPRESSION: 1. There is an 8 mm calculus within the right renal pelvis. No significant associated hydronephrosis. 2. Bilateral nephrolithiasis. 3. Prostamegaly with evidence of chronic bladder outlet obstruction. 4. Fluid-filled loops of large bowel with nonspecific rectal wall thickening redemonstrated. Correlate clinically to exclude a nonspecific proctitis. 5. No bowel obstruction or pneumoperitoneum. 6. Cholelithiasis. 7. Additional findings as above. ACT 112: Negative or not required by law. The above report was generated using voice recognition software. It may contain grammatical, syntax or spelling errors. Electronically signed by: Justus Martinez M.D. 09/19/2023 6:[address] 09/19/23 16:57 CT head/brain wo con CLINICAL HISTORY: 53 years-old Male with esrd, n/v, wilkerson. Acute headache with nausea and vomiting TECHNIQUE: Multiple axial CT images of the head were obtained without contrast. A dose lowering technique was utilized adhering to the principles of ALARA. CT DOSE: 1403.89 mGy.cm COMPARISON: 03/15/2023 FINDINGS: No acute intracranial hemorrhage, midline shift, intracranial mass, hydrocephalus, territorial ischemia or abnormal extra-axial collection. The calvarium is intact. Bilateral lens repair. The paranasal sinuses, mastoid air cells, and middle ear cavities are clear. IMPRESSION: No acute intracranial abnormality. ACT 112: Negative or not required by law. The above report was generated using voice recognition software. It may contain grammatical, syntax or spelling errors. Electronically signed by: Justus Martinez M.D. 09/19/2023 6:09 PM ECG Additional Comments: EKG shows SR with 1st degree AV block, 86bpm, TWI present in inferior leads PG Care Time/CCT Total # of Minutes Spent Total Time Spent with Patient: Total time spent is greater than 50% in coordination of care (as documented) at patient's floor/unit and/or counseling patient: Coding Level of Care Code 02606 INT INP/OBS CARE 3/75MIN Diagnoses Nausea & vomiting R11.2 Vomiting Intractability: intractable Vomiting type: unspecified Hyperglycemia due to type 1 diabetes mellitus E10.65 Hypertension I10 Hypertension type: unspecified ESRD (end stage renal disease) N18.6 Diabetic gastroparesis E11.43; K31.84 GERD (gastroesophageal reflux disease) K21.9 Esophagitis presence: without esophagitis (1) Nausea & vomiting Vomiting Intractability: intractable Vomiting type: unspecified Qualified Code(s): R11.2 - Nausea with vomiting, unspecified (3) Hypertension Hypertension type: unspecified Qualified Code(s): I10 - Essential (primary) hypertension (6) GERD (gastroesophageal reflux disease) Esophagitis presence: without esophagitis Qualified Code(s): K21.9 - Gastro- esophageal reflux disease without esophagitis
[2023-09-19] MEDS: DKA GOAL RANGE 150-250 mg/dl ONE (21:25)
[2023-09-19] MEDS: STAT IV Infusion **Titration per Protocol STA (21:25)
[2023-09-19] MEDS: MIRTAZAPINE TAB 15 MG TAB PO SCH (21:43)
[2023-09-19] MEDS: hydrALAZINE 10 MG TAB PO PRN (21:43)
[2023-09-19] MEDS: LORazepam 0.5 MG in SYRINGE 0.25 ML IV PRN (21:43)
[2023-09-19] MEDS: LACTATED RINGER'S 1,000 ML IV SCH (21:44)
[2023-09-19] MEDS ORDERED: GLUCAGON FOR INJ 1 MG VIAL SQ PRN (23:21)
[2023-09-19] MEDS ORDERED: GLUCOSE 40% GEL 15 GM TUBE PO PRN (23:21)
[2023-09-19] MEDS ORDERED: GLUCOSE 10 TAB/TUBE PO PRN (23:21)
[2023-09-19 23:32] LABS: Anion Gap 12 (3-11); Blood Urea Nitrogen 53 mg/dl (6-23); Calcium 9.1 mg/dl (8.6-10.3); Carbon Dioxide 28 mmol/L (21-32); Chloride 97 mmol/L (98-107); Creatinine Clr Calc Pharmacy 12.5 ml/min; Est GFR (African American) 10.1 ml/min; Est GFR (Non-African American) 8.7 ml/min; Glucose 224 mg/dl (70-99(Fasting)); Sodium 137 mmol/L (136-145)
[2023-09-20] MEDS: ONDANSETRON INJ 2 MG/ML 2 ML VIAL IV PRN (01:29)
[2023-09-20] MEDS: METOCLOPRAMIDE HCL INJ 5 MG/ML 2 ML VIAL IV PRN (03:10)
[2023-09-20] MEDS: INSULIN ASPART PER UNIT CHARGE SC SCH ×2 (03:10→13:10)
--- NOTE | 2023-09-20 07:10 | Electrocardiogram Report ---
Test Reason : Blood Pressure : / mmHG Vent. Rate : 086 BPM Atrial Rate : 086 BPM P-R Int : 232 ms QRS Dur : 092 ms QT Int : 426 ms P-R-T Axes : 077 014 -35 degrees QTc Int : 509 ms Sinus rhythm with 1st degree A-V block Possible Left atrial enlargement Minimal voltage criteria for LVH, may be normal variant Abnormal ECG Confirmed by Dewayne Spivey ([id number]) on 09/20/2023 7:10:36 AM Referred By: Confirmed By:Pee Spivey
[2023-09-20 08:39] LABS: Hematocrit (blood only) 32.4 % (42.0-52.0); Hemoglobin 10.5 g/dl (14.0-18.0); Mean Corpuscular Hemoglobin 33.1 pg (25.0-34.0); Mean Corpuscular Hgb Conc 32.4 g/dL (32.0-36.0); Mean Corpuscular Volume 102.2 fL (80.0-100.0); Mean Platelet Volume 8.9 fL (9.4-12.4); Platelet Count 291 K/uL (130-400); RDW Coefficient of Variation 13.7 % (11.5-14.5); RDW Standard Deviation 51.4 fL (36.4-46.3); Red Blood Count 3.17 M/uL (4.70-6.10); White Blood Count 13.12 K/ul (4.8-10.8)
[2023-09-20] MEDS: SERTRALINE HCL 50 MG TABLET PO SCH (09:39)
[2023-09-20] MEDS: SERTRALINE HCL 100 MG TABLET PO SCH (09:39)
[2023-09-20] MEDS: LANTUS PER UNIT CHARGE SQ SCH (09:40)
[2023-09-20] MEDS: carvediloL 12.5 MG TAB PO SCH (09:40)
[2023-09-20] MEDS: ATORVASTATIN 10 MG TAB PO SCH (09:40)
[2023-09-20] MEDS: INSULIN HUMAN REGULAR PER UNIT 7 UNITS in SYRINGE 6.93 ML IV STA (09:41)
[2023-09-20 10:00] LABS: Albumin Level 3.7 gm/dl (3.4-5.0); BUN Creatinine Ratio 8.4 (10-20); Bilirubin Direct 0.1 mg/dl (0-0.2); Bilirubin,Total 0.5 mg/dl (0.2-1.0); Calcium 8.9 mg/dl (8.6-10.3); Creatinine Clr Calc Pharmacy 11.5 ml/min; Est GFR (African American) 9.2 ml/min; Est GFR (Non-African American) 7.9 ml/min; Potassium 4.3 mmol/L (3.5-5.1); Total Protein 6.6 gm/dl (6.0-8.3)
[2023-09-20] MEDS ORDERED: STAT IV Infusion **Titration per Protocol STA (10:29)
[2023-09-20] MEDS ORDERED: INSULIN PROTOCOL GOAL RANGE ONE (10:29)
[2023-09-20] MEDS ORDERED: MODERATE STRESS LEVEL ONE (10:29)
[2023-09-20] MEDS ORDERED: PHARMACY GLYCEMIC MGMT CONSULT SCH (10:45)
[2023-09-20] MEDS: INSULIN REGULAR 250 UNITS in SODIUM CHLORIDE 0.9% 247.5 ML IV SCH (11:05)
[2023-09-20] MEDS: PANTOprazole 40 MG in SYRINGE 0 ML IV SCH (12:22)
--- NOTE | 2023-09-20 16:10 | Hospitalist Progress Note ---
Date of Service September 20, 2023 Assessment & Plan (1) Nausea & vomiting: Plan: 53yo male with ESRD on HD, DM-1, cyclic vomiting and gastroparesis presenting with 1 day of nausea/vomiting and diarrhea. Patient unable to tolerate PO. Has had similar admissions in the past. Likely secondary to cyclic vomiting and gastroparesis. Continues with nausea and not able to eat much and with hyperglycemia and suspected mixed picture but with DKA in the setting of end-stage renal disease on dialysis -Gentle IVF - LR at 80mL/hr x 1L was given Will give further fluids as he is unable to eat or drink anything-start D5 normal saline at 50 MLS per hour x 1 L Add on IV Benadryl as needed Continue IV Ativan, Reglan, Zofran as needed for nausea and vomiting Continue IV Protonix (2) Hyperglycemia due to type 1 diabetes mellitus: Plan: Patient hyperglycemic on arrival. Has mild anion gap. pH alkalemic but he has a very confusing acid-base picture typically I do believe he has some element of DKA Blood sugars are back up in the high 400s today and with anion gap despite normal serum bicarbonate it is lower than usual-resume insulin drip Now that glucose is less than 250, start D5 normal saline but hold off on potassium replacement given end-stage renal disease He did receive Lantus 20 units on the morning of 09/19 but will hold for now and resume likely tomorrow and transition off insulin drip Glucose checks every hour, diabetic diet Follow BMP this evening Giving small amount of IV fluids as above (3) Hypertension: Plan: Elevated blood pressure which is typical for him when he has vomiting episodes- improved now after IV labetalol on admission -Management of acute nausea and abdominal pain as above -Continue Carvedilol 12.5mg po BID -Hydralazine 10mg PO q 6 hours as needed for blood pressure > 180/110 -Monitor (4) ESRD (end stage renal disease): Plan: Noted. Patient is on HD q M// with last full treatment on Thursday -Monitor renal function. No acute need for HD at this time -Cautious administration of IVF Consult nephrology for dialysis on Thursday (5) Diabetic gastroparesis: Plan: Patient with gastroparesis, likely cause for ongoing nausea and vomiting -Continue Zofran PRN -Reglan PRN -Ativan PRN -Gentle IVF -Electrolyte repletion as needed -Clear liquid diet ordered but he is not eating yet (6) GERD (gastroesophageal reflux disease): Plan: Chronic. Stable -Protonix 40mg IV daily (7) Anxiety: Plan: Stable, continue home sertraline if able to tolerate (8) Anemia of chronic disease: Plan: Hemoglobin stable at baseline, follows with nephrology Follow CBC Plan DVT prophylaxis-add heparin SQ as he does have a history of PE Disposition-continued stay Admission and Anticipated Discharge Date Admission Date: September 19, 2023 Subjective Patient still reports ongoing nausea and has not been able to eat anything all day. I restarted him on insulin drip for hyperglycemia with blood sugars in the mid to upper 400s He denies abdominal pains. No chest pain or shortness of breath. He reports that IV Benadryl does help him along with Ativan I discussed his care with the pharmacist for glycemic control Telemetry with normal sinus rhythm and first-degree AV block with rates in 70s to 80s Physical Exam Constitutional: well developed; no acute distress Respiratory: normal respiratory effort, lungs clear to auscultation Cardiovascular: RRR, no murmur, no edema Gastrointestinal (Abdomen): normal bowel sounds, soft, nontender, no hepatosplenomegaly Psychiatric: A+Ox3, euthymic affect Results & Data Results & Data Vital Signs (Past 12 Hours) Vital Signs Temp Pulse Pulse Resp BP BP Pulse Ox 09/20/23 15:52 36.4 C L 73 18 157/70 H 98 09/20/23 15:07 82 09/20/23 11:49 36.7 C 88 18 178/78 H 91 09/20/23 07:30 36.9 C 82 16 163/60 H 95 09/20/23 07:14 78 O2 Del Method 09/20/23 15:52 Room Air 09/20/23 15:07 09/20/23 11:49 Room Air 09/20/23 07:30 Room Air 09/20/23 07:14 Laboratory Results CBC, BMP, VBG reviewed PG Care Time/CCT Total # of Minutes Spent Total Time Spent with Patient: Total time spent is greater than 50% in coordination of care (as documented) at patient's floor/unit and/or counseling patient: Coding Level of Care Code 93728 SUB INP/OBS CARE 3/50MIN Diagnoses Nausea & vomiting R11.2 Vomiting Intractability: intractable Vomiting type: unspecified Hyperglycemia due to type 1 diabetes mellitus E10.65 Hypertension I10 Hypertension type: unspecified ESRD (end stage renal disease) N18.6 Diabetic gastroparesis E11.43; K31.84 GERD (gastroesophageal reflux disease) K21.9 Esophagitis presence: without esophagitis Anxiety F41.9 Anemia of chronic disease D63.8 (1) Nausea & vomiting Vomiting Intractability: intractable Vomiting type: unspecified Qualified Code(s): R11.2 - Nausea with vomiting, unspecified (3) Hypertension Hypertension type: unspecified Qualified Code(s): I10 - Essential (primary) hypertension (6) GERD (gastroesophageal reflux disease) Esophagitis presence: without esophagitis Qualified Code(s): K21.9 - Gastro- esophageal reflux disease without esophagitis
[2023-09-20] MEDS: D5W AND NSS 1,000 ML IV SCH (16:23)
[2023-09-20 18:22] LABS: BUN Creatinine Ratio 7.9 (10-20); Calcium 8.7 mg/dl (8.6-10.3); Creatinine Clr Calc Pharmacy 9.9 ml/min; Est GFR (African American) 7.6 ml/min; Est GFR (Non-African American) 6.6 ml/min; Potassium 3.9 mmol/L (3.5-5.1)
[2023-09-20] MEDS: HEPARIN SOD 5,000 UNIT/0.5 ML VIAL SQ SCH (20:22)
[2023-09-21] MEDS: MELATONIN 3 MG TAB PO PRN (00:04)
[2023-09-21] MEDS: diphenhydrAMINE 50 MG/ML VIAL IV PRN (00:04)
[2023-09-21] MEDS: DEXTROSE 50% 50 ML SYRINGE IV PRN (00:39)
[2023-09-21] MEDS ORDERED: SODIUM CHLORIDE 0.9% 1,000 ML IV PRN (07:00)
[2023-09-21] MEDS: hydrALAZINE HCL 20 MG/ML VIAL IV STA (08:21)
[2023-09-21] MEDS: hydrALAZINE HCL 20 MG/ML VIAL IV PRN (08:23)
[2023-09-21] MEDS: LANTUS PER UNIT CHARGE SQ SCH ×2 (08:53→20:33)
[2023-09-21] MEDS: SODIUM CHLORIDE 0.9% 1,000 ML IV SCH (08:58)
[2023-09-21] MEDS: hydrALAZINE HCL 25 MG TAB PO SCH (08:59)
--- NOTE | 2023-09-21 09:32 | Nephrology Consultation ---
Date of Consultation September 21, 2023 Assessment & Plan (1) ESRD (end stage renal disease): Assessment & Plan ESRD on hemodialysis Thursday. Today is his regular day and will do later today as per his regular schedule. No evidence of major fluid overload or electrolyte imbalance. will try to take about 3--3.5 kilos off which is usually what he gains over the weekend. AV fistula seems fine 3. hrs and 3-3.5 kilo off. Regular orders otherwise No need of Iv fluid.-Will stop. (2) Vomiting: he has had intractable nausea vomiting requiring too many to count hospital admission in the past. extensively evaluated and treated and at this point the working diagnosis is severe gastroparesis. continue current medication. In fact he has outpatient appointment with Gastroenterology tomorrow History of Present Illness Attending Physician: Godwin Ray MD History of Present Illness History of Present Illness Reason for Consultation: ESRD on dialysis admitted with severe nausea vomiting History of Present Illness 53-year-old male with longstanding history of diabetes with ESRD as well as severe diabetic gastroparesis and too many to count admissions previously for severe nausea vomiting. unfortunately he came to the hospital for exactly same reason. he normally gets dialysis Thursday and is scheduled to get later today as an inpatient. denies any other new symptoms or issues. dialysis through AV fistula review of systems----- other than intractable chronic nausea vomiting 12 systems reviewed and negative physical examination awake alert oriented x3 no respiratory distress normal speech and able to give detailed account of his medical problems mucous membrane moist neck is supple no JVD chest bilateral clear to auscultation CVS S1 and S2 regular soft systolic murmur heard abdomen is soft nontender extremities no edema skin did not show any obvious rash Allergies Allergy/AdvReac Type Severity Reaction Status Date / Time shellfish derived Allergy Severe anaphylaxis Verified 09/12/23 17:40 codeine Allergy Intermediate Hives Verified 09/12/23 17:40 promethazine Allergy Intermediate itchy/hives Verified 09/12/23 17:40 Home Medications Medication Instructions Recorded Confirmed Type acetaminophen 325 mg capsule 650 mg PO Q4H PRN Pain (Scale 09/28/20 09/19/23 History Score 1-3) sertraline 100 mg tablet 100 mg PO QAM 12/29/21 09/19/23 History sertraline 25 mg tablet 25 mg PO QAM 12/29/21 09/19/23 History atorvastatin 10 mg tablet 10 mg PO QAM #90 tabs 08/11/22 09/19/23 Rx ondansetron HCl 4 mg tablet 8 mg (2 x 4 mg) PO Q4 PRN nausea 08/14/22 09/19/23 Rx or vomiting #60 tabs melatonin 1 mg tablet 4 mg PO HS PRN Sleep 09/18/22 09/19/23 History midodrine 5 mg tablet 5 mg PO .COMPLEX 02/19/23 09/19/23 History mirtazapine 7.5 mg tablet 7.5 mg PO HS 02/19/23 09/19/23 History carvedilol 12.5 mg tablet (Coreg) 12.5 mg PO BID #30 tabs 04/08/23 09/19/23 Rx pantoprazole 40 mg tablet,delayed 40 mg PO QAM #90 tabs 04/16/23 09/19/23 Rx release (Protonix) lorazepam 0.5 mg tablet 0.5 mg PO Q8H PRN severe nausea 04/24/23 09/19/23 Rx #30 tabs lanthanum 500 mg chewable tablet 500 mg PO DIRECTED 08/09/23 09/19/23 History insulin glargine 100 unit/mL (3 20 unit subcut QAM 09/12/23 09/19/23 History mL) subcutaneous pen (Basaglar KwikPen U-100 Insulin) insulin regular human 100 unit/mL 0 sliding scale dose subcut TIDM 09/12/23 09/19/23 History (3 mL) subcutaneous pen (Novolin R FlexPen) Patient History Medical History Hypertension History of pulmonary embolism 11/2020; unk etiology; was on warfarin (taken off 05/2021) 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 Lor Guadalupe; [facility]/[place]) History of nephrolithiasis Personal history of diabetic foot ulcer Diabetic peripheral neuropathy associated with type 1 diabetes mellitus Cyclical vomiting syndrome Chronic pleural effusion PleurX catheter placed 01/24/21--removed 07/2021 Urolithiasis Junctional rhythm Diabetic gastroparesis 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, with long-term current use of insulin Anemia of chronic disease Anxiety Kidney stone on right side hx Lumbar radiculopathy AV fistula left upper arm GERD (gastroesophageal reflux disease) Diabetic retinopathy Depression CAD (coronary artery disease) mild, non-obstructive CAD per 10/2018 cardiac cath> [facility] Surgical History History of colonoscopy S/P arteriovenous (AV) fistula creation left arm History of cataract surgery History of esophagogastroduodenoscopy (EGD) (~03/08/20) History of open reduction and internal fixation (ORIF) procedure right hip Nausea and vomiting after administration of anesthetic agent History of lithotripsy History of cardiac cath x2---07/28/[address] [facility], no stents--per pt done for transplant list and 10/2018 @ [facility] (no stents) History of hip surgery left HIP ARTHROSCOPY H/O shoulder surgery RIGHT History of appendectomy Family History Grandfather Myocardial infarction Grandfather (Maternal) Family history of diabetes mellitus Uncle Myocardial infarction Father Hypertension Mother Kidney stone Other No family history of adverse response to anesthesia Denies family history of Colon cancer Ovarian cancer Prostate cancer Breast cancer Social History Smoking Status: Unknown if ever smoked Tobacco Type: Smokeless Tobacco (Dip or Chew) Second Hand Exposure: No; Do You Dip or Chew Tobacco: No (quit 2018); Hx Alcohol Use: No Hx Substance Use: No Preferred Language: Mohawk Communication Ability: Effective Visual Impairment: No Limitations Hearing Ability: Normal Front Office Administrator Required: No Beliefs That Will Affect Care: None marital status: Current Living Situation: Parent Current Living Situation Comment: with alycia and babita parents current occupational status: disabled How many Children do You have: 2 Other Information That Helps Us Care for You: No Feels Safe at Home: Yes Safety Concerns: Feels Safe At This Time Childhood Exposure to Second-Hand Smoke: Yes Diet: regular caffeine: Yes Dental Care, Regularly: No Physical Activity Frequency: 1-2 Times per Week Seatbelt Use: always Sunscreen Use: Yes Gender Identity: Male Assistive Devices: Glasses Results & Data Vital Signs (Past 12 Hours) Vital Signs Temp Pulse Pulse Resp BP Pulse Ox O2 Del Method 09/21/23 09:00 70 210/76 H 09/21/23 08:30 73 216/82 H 98 Room Air 09/21/23 07:32 76 09/21/23 07:25 35.8 C L 71 18 216/75 H 97 Room Air 09/21/23 03:56 36.6 C 64 18 142/66 H 97 Room Air 09/20/23 23:19 36.7 C 71 20 166/68 H 95 Room Air 09/20/23 22:49 70
[2023-09-21 10:44] LABS: Albumin Globulin Ratio 1.3 (0.9-2); Albumin Level 3.8 gm/dl (3.4-5.0); BUN Creatinine Ratio 7.6 (10-20); Bilirubin,Total 0.4 mg/dl (0.2-1.0); Calcium 8.6 mg/dl (8.6-10.3); Est GFR (African American) 6.8 ml/min; Est GFR (Non-African American) 5.9 ml/min; Globulin 2.9 gm/dl (2.5-4.0); Magnesium 2.4 mg/dl (1.7-2.4); Phosphorus 5.5 mg/dl (2.5-4.9); Potassium 3.8 mmol/L (3.5-5.1); Total Protein 6.7 gm/dl (6.0-8.3)
[2023-09-21 10:54] LABS: Basophils # (auto) 0.03 K/uL (0.00-0.20); Basophils % (auto) 0.2 %; Eosinophils # (auto) 0.05 K/uL (0.00-0.50); Eosinophils % (auto) 0.4 %; Hematocrit (blood only) 32.4 % (42.0-52.0); Hemoglobin 10.7 g/dl (14.0-18.0); Immature Granulocytes # (auto) 0.09 K/uL (0.01-0.20); Immature Granulocytes % (auto) 0.7 %; Lymphocytes # (auto) 1.14 K/uL (1.20-3.40); Lymphocytes % (auto) 8.6 %; Mean Corpuscular Hemoglobin 33.2 pg (25.0-34.0); Mean Corpuscular Volume 100.6 fL (80.0-100.0); Monocytes # (auto) 0.68 K/uL (0.11-0.59); Monocytes % (auto) 5.1 %; Neutrophils # (auto) 11.34 K/uL (1.40-6.50); Platelet Count 345 K/uL (130-400); Platelet Estimate Increased (Normal); RDW Coefficient of Variation 13.3 % (11.5-14.5); RDW Standard Deviation 49.5 fL (36.4-46.3); Red Blood Count 3.22 M/uL (4.70-6.10); White Blood Count 13.33 K/ul (4.8-10.8)
--- NOTE | 2023-09-21 11:46 | Pharmacy Report ---
Pharmacy Glycemic Short Note 2 - Date of Service September 21, 2023 - Glycemic Short BSG Results (Last 24 hours): 09/20/23 09/20/23 09/20/23 12:05 13:05 14:08 Glucose POC Glucose 356 H* 318 H* 316 H* 09/20/23 09/20/23 09/20/23 15:07 16:14 17:18 Glucose POC Glucose 267 H 201 H 175 H 09/20/23 09/20/23 09/20/23 17:30 18:19 19:29 Glucose 168 H POC Glucose 129 H 119 H 09/20/23 09/20/23 09/21/23 20:26 22:28 00:29 Glucose POC Glucose 134 H 110 H 67 L* 09/21/23 09/21/23 09/21/23 00:30 00:56 01:25 Glucose POC Glucose 73 124 H 118 H 09/21/23 09/21/23 09/21/23 02:21 03:30 04:24 Glucose POC Glucose 122 H 113 H 109 H 09/21/23 09/21/23 09/21/23 05:26 06:24 07:53 Glucose POC Glucose 122 H 126 H 137 H 09/21/23 09/21/23 09/21/23 10:07 10:10 10:13 Glucose 186 H POC Glucose 221 H 176 H OUTPATIENT ANTIDIABETIC REGIMEN: * Insulin glargine 20 units SC qAM * Novolin R SSI TIDM HbA1c: 8.4% (08/10/23) ASSESSMENT: * GERBER is a 53 year old male well known to pharmacy glycemic service due to frequent admissions/consults * Patient w/ T1DM, ESRD, and severe gastroparesis (presenting with nausea/ vomiting) * Blood sugars > 400 mg/dL on presentation * Patient received 20 units of Lantus and insulin gtt started * Perhaps some degree of DKA, anion gap elevated (although VBG pH of 7.61) * Discussed with hospitalist today, given persistent nausea/vomiting, he would prefer to maintain insulin gtt. Basal was held by provider this morning. * Hemodialysis today PLAN FOR INPATIENT GLYCEMIC CONTROL: * Insulin infusion (follow protocol) * Basal insulin * hold per
[2023-09-21] MEDS: METOCLOPRAMIDE HCL INJ 5 MG/ML 2 ML VIAL IV SCH (12:06)
--- NOTE | 2023-09-21 12:32 | Hospitalist Progress Note ---
Date of Service September 21, 2023 Assessment & Plan (1) Nausea & vomiting: Plan: Recurrent. No hematemesis. IV scheduled Reglan ordered. Advance diet as tolerated. He denies marijuana use. Probable causes gastroparesis. (2) Hyperglycemia due to type 1 diabetes mellitus: Plan: Oral intake remains poor. Continue insulin drip for now. Eventual switch to twice daily basal insulin dosing. He may have an element of DKA. (3) Hypertension: Plan: He required intravenous hydralazine this morning, September 20. He is now on oral hydralazine 25 mg 3 times a day. Telemetry. He is also on carvedilol. (4) ESRD (end stage renal disease): Plan: Nephrology consultation and recommendations appreciated. Continue HD q M/W/ . Serial labs (5) Diabetic gastroparesis: Plan: Parenteral scheduled Reglan therapy. Supportive care. Advance diet as tolerated (6) GERD (gastroesophageal reflux disease): Plan: Stable. Protonix 40mg IV daily (7) Anxiety: Plan: Stable. Continue home sertraline when able (8) Anemia of chronic disease: Plan: Due to end-stage renal disease. Serial labs. Plan Anticipate eventual discharge to home later this week Admission and Anticipated Discharge Date Admission Date: September 21, 2023 Subjective Alert. Continued nausea and poor oral intake. Scheduled dosing of parenteral Reglan ordered. Continue insulin drip for now. IV hydralazine administered for elevated blood pressure and he is now on oral 25 mg 3 times a day dosing Review of Systems 2 Review of Systems: Constitutional-no fever or chills ENT-no blurred vision, no double vision, no epistaxis, no sore throat Respiratory-no cough, no wheezing, no shortness of breath Cardiac-no palpitations, no chest pain, no syncope GI-persistent nausea. Intermittent vomiting. No diarrhea, melena, hematochezia -no urinary retention, no urinary incontinence, no dysuria, no hematuria Musculoskeletal-no joint pain, no muscle tenderness Skin-no bruising, no rashes, no pruritus Neuro-no isolated weakness, no paresthesia Psych-no depression, no anxiety Physical Exam 2 Physical Exam: General-alert and oriented x3, no fever, no chills HEENT-head atraumatic and normocephalic, pupils equal and reactive to light, extraocular muscles intact Neck-no lymphadenopathy or thyromegaly, trachea midline Chest-clear to auscultation. No rales, wheezing or rhonchi Cardiac-regular rate and rhythm, normal S1 and S2 Abdomen-normal bowel sounds, nondistended, nontender, no hepatosplenomegaly Extremities-no cyanosis, clubbing, or edema Neuro-cranial nerves II through XII intact, motor and sensory function within normal limits, strength symmetrical, no focal deficits Psych-normal affect, normal mood Results & Data Results & Data Vital Signs (Past 12 Hours) Vital Signs Temp Pulse Pulse Resp BP Pulse Ox O2 Del Method 09/21/23 11:21 36.5 C 79 18 199/47 H 97 Room Air 09/21/23 09:00 70 210/76 H 09/21/23 08:30 73 216/82 H 98 Room Air 09/21/23 07:32 76 09/21/23 07:25 35.8 C L 71 18 216/75 H 97 Room Air 09/21/23 03:56 36.6 C 64 18 142/66 H 97 Room Air Laboratory Results 09/21/23 10:13 09/21/23 10:13 PG Care Time/CCT Total # of Minutes Spent Total Time Spent with Patient: Total time spent is greater than 50% in coordination of care (as documented) at patient's floor/unit and/or counseling patient: Coding Level of Care Code 52710 SUB INP/OBS CARE 3/50MIN Diagnoses Nausea & vomiting R11.2 Vomiting Intractability: intractable Vomiting type: unspecified Hyperglycemia due to type 1 diabetes mellitus E10.65 Hypertension I10 Hypertension type: unspecified ESRD (end stage renal disease) N18.6 Diabetic gastroparesis E11.43; K31.84 GERD (gastroesophageal reflux disease) K21.9 Esophagitis presence: without esophagitis Anxiety F41.9 Anemia of chronic disease D63.8 (1) Nausea & vomiting Vomiting Intractability: intractable Vomiting type: unspecified Qualified Code(s): R11.2 - Nausea with vomiting, unspecified (3) Hypertension Hypertension type: unspecified Qualified Code(s): I10 - Essential (primary) hypertension (6) GERD (gastroesophageal reflux disease) Esophagitis presence: without esophagitis Qualified Code(s): K21.9 - Gastro- esophageal reflux disease without esophagitis
[2023-09-21] MEDS: HEPARIN SOD (PORCINE) 1000 UNIT/ML IV ONE (13:50)
[2023-09-21] MEDS ORDERED: CARBOHYDRATES FOR HYPOGLYCEMIA PO PRN (18:28)
[2023-09-21] MEDS ORDERED: GLUCOSE 10 TAB/TUBE PO PRN (18:28)
[2023-09-21] MEDS ORDERED: DEXTROSE 50% 50 ML SYRINGE IV PRN (18:28)
[2023-09-21] MEDS ORDERED: GLUCAGON FOR INJ 1 MG VIAL SQ PRN (18:28)
[2023-09-21] MEDS ORDERED: GLUCOSE 40% GEL 15 GM TUBE PO PRN (18:28)
[2023-09-21] MEDS: INSULIN ASPART PER UNIT CHARGE SC SCH (20:22)
[2023-09-21] MEDS: ONDANSETRON INJ 2 MG/ML 2 ML VIAL IV PRN (20:38)
[2023-09-21] MEDS: ACETAMINOPHEN 325 MG TAB PO PRN (23:10)
[2023-09-22 07:11] LABS: Calcium 8.8 mg/dl (8.6-10.3); Potassium 3.6 mmol/L (3.5-5.1)
[2023-09-22 07:28] LABS: BUN Creatinine Ratio 4.7 (10-20); Creatinine Clr Calc Pharmacy 13.3 ml/min; Est GFR (African American) 11.9 ml/min; Est GFR (Non-African American) 10.3 ml/min
[2023-09-22] MEDS: CARBOHYDRATES FOR HYPOGLYCEMIA PO PRN (08:16)
[2023-09-22] MEDS ORDERED: LORazepam 0.5 MG TAB PO PRN (11:44)
[2023-09-22] MEDS: hydrALAZINE TAB 50 MG TAB PO SCH (13:18)
--- NOTE | 2023-09-22 16:33 | Hospitalist Progress Note ---
Date of Service September 22, 2023 Assessment & Plan (1) Nausea & vomiting: Plan: Recurrent. No hematemesis. Now resolved on IV scheduled Reglan. Will continue oral dosing at discharge. Diet has been advanced. He denies marijuana use. Probable cause is underlying gastroparesis. (2) Hyperglycemia due to type 1 diabetes mellitus: Plan: Insulin drip has been switched to basal Lantus. Diet has been advanced. Stable. (3) Hypertension: Plan: He required intravenous hydralazine on the morning of September 20. He is now on oral hydralazine which has been uptitrated today, September 21, for better blood pressure control. Telemetry. He is also on carvedilol. (4) ESRD (end stage renal disease): Plan: Nephrology consultation and recommendations appreciated. Continue HD q M/W/ . Serial labs (5) Diabetic gastroparesis: Plan: Symptomatic improvement with parenteral scheduled Reglan therapy. Continue oral Reglan therapy before meals and at bedtime at discharge. Supportive care. Diet has been advanced (6) GERD (gastroesophageal reflux disease): Plan: Stable. Protonix has been switched from IV to oral dosing (7) Anxiety: Plan: Stable. Continue current medical management (8) Anemia of chronic disease: Plan: Due to end-stage renal disease. Serial labs. Plan Hopefully home tomorrow, September 22 Admission and Anticipated Discharge Date Admission Date: September 21, 2023 Subjective He looks and feels much better. Diet has been advanced to solid food. IV fluids discontinued. Hydralazine uptitrated further today, September 21, for better blood pressure control. Hopefully he can go home tomorrow, September 22 Review of Systems 2 Review of Systems: Constitutional-no fever or chills ENT-no blurred vision, no double vision, no epistaxis, no sore throat Respiratory-no cough, no wheezing, no shortness of breath Cardiac-no palpitations, no chest pain, no syncope GI-nausea has resolved. No diarrhea, melena, hematochezia -no urinary retention, no urinary incontinence, no dysuria, no hematuria Musculoskeletal-no joint pain, no muscle tenderness Skin-no bruising, no rashes, no pruritus Neuro-no isolated weakness, no paresthesia Psych-no depression, no anxiety Physical Exam 2 Physical Exam: General-alert and oriented x3, no fever, no chills HEENT-head atraumatic and normocephalic, pupils equal and reactive to light, extraocular muscles intact Neck-no lymphadenopathy or thyromegaly, trachea midline Chest-clear to auscultation. No rales, wheezing or rhonchi Cardiac-regular rate and rhythm, normal S1 and S2 Abdomen-normal bowel sounds, nondistended, nontender, no hepatosplenomegaly Extremities-no cyanosis, clubbing, or edema Neuro-cranial nerves II through XII intact, motor and sensory function within normal limits, strength symmetrical, no focal deficits Psych-normal affect, normal mood Results & Data Results & Data Vital Signs (Past 12 Hours) Vital Signs Temp Pulse Pulse Resp BP Pulse Ox O2 Del Method 09/22/23 15:08 36.5 C 76 20 113/61 96 Room Air 09/22/23 11:09 36.4 C L 79 18 175/72 H 97 Room Air 09/22/23 07:30 36.6 C 79 18 174/79 H 98 Room Air 09/22/23 07:18 77 Laboratory Results 09/21/23 10:13 09/22/23 06:40 PG Care Time/CCT Total # of Minutes Spent Total Time Spent with Patient: Total time spent is greater than 50% in coordination of care (as documented) at patient's floor/unit and/or counseling patient: Coding Level of Care Code 44293 SUB INP/OBS CARE 3/50MIN Diagnoses Nausea & vomiting R11.2 Vomiting Intractability: intractable Vomiting type: unspecified Hyperglycemia due to type 1 diabetes mellitus E10.65 Hypertension I10 Hypertension type: unspecified ESRD (end stage renal disease) N18.6 Diabetic gastroparesis E11.43; K31.84 GERD (gastroesophageal reflux disease) K21.9 Esophagitis presence: without esophagitis Anxiety F41.9 Anemia of chronic disease D63.8 (1) Nausea & vomiting Vomiting Intractability: intractable Vomiting type: unspecified Qualified Code(s): R11.2 - Nausea with vomiting, unspecified (3) Hypertension Hypertension type: unspecified Qualified Code(s): I10 - Essential (primary) hypertension (6) GERD (gastroesophageal reflux disease) Esophagitis presence: without esophagitis Qualified Code(s): K21.9 - Gastro- esophageal reflux disease without esophagitis
[2023-09-23] MEDS ORDERED: SODIUM CHLORIDE 0.9% 1,000 ML IV PRN (07:00)
[2023-09-23 09:23] LABS: BUN Creatinine Ratio 5.2 (10-20); Calcium 8.4 mg/dl (8.6-10.3); Creatinine Clr Calc Pharmacy 9.5 ml/min; Est GFR (African American) 7.8 ml/min; Est GFR (Non-African American) 6.7 ml/min; Potassium 3.8 mmol/L (3.5-5.1)
[2023-09-23] MEDS: PANTOprazole 40 MG TAB PO SCH (09:57)
--- NOTE | 2023-09-23 10:24 | Nephrology Progress Note ---
Date of Service September 23, 2023 Assessment & Plan Admission and Anticipated Discharge Date Admission Date: September 21, 2023 Subjective Assessment & Plan ESRD on hemodialysis Thursday. Today is his regular day and will do later today as per his regular schedule. No evidence of major fluid overload or electrolyte imbalance. will try to take about 3 kilos off which is usual for him. AVF fine 3.5 hrs and 3 kilo off. Regular orders otherwise No need of Iv fluid.-Will stop. (2) Vomiting: he has had intractable nausea vomiting requiring too many to count hospital admission in the past. extensively evaluated and treated and at this point the working diagnosis is severe gastroparesis. continue current medication. In fact he has outpatient appointment with Gastroenterology tomorrow S---less nausea and vomiting today. No new issues. physical examination awake alert oriented x3 no respiratory distress normal speech and able to give detailed account of his medical problems mucous membrane moist neck is supple no JVD chest bilateral clear to auscultation CVS S1 and S2 regular soft systolic murmur heard abdomen is soft nontender extremities no edema skin did not show any obvious rash Results & Data Vital Signs (Past 12 Hours) Vital Signs Temp Pulse Pulse Resp BP Pulse Ox O2 Del Method 09/23/23 08:26 77 09/23/23 07:31 36.7 C 79 16 158/70 H 94 Room Air 09/23/23 04:05 36.9 C 82 20 133/67 95 Room Air 09/22/23 23:31 36.8 C 75 20 104/57 L 96 Room Air 09/22/23 23:23 76
--- NOTE | 2023-09-23 11:33 | Discharge Summary ---
Date of Service September 23, 2023 Admission HPI Per Admitting Provider Jorge Alberto De Los Santos is a 53yo male with ESRD on HD q M/W/F, cyclic vomiting syndrome, HTN, GERD and diabetic gastroparesis presenting with nausea and vomiting x 1 day. Symptoms began this morning. He has had multiple episodes of non-bloody/non-bilious vomiting as well a diarrhea. Patient took his insulin this morning. He reports that his blood sugars have been high all day in the 400's. He had HD performed on 09/18/23 and they took off a small amount of fluid but then gave him some IVF back. Patient is vomiting at time of exam. He denies chest pain, SOB. States that he has had some chills. In the ER he is afebrile, hypertensive otherwise HD stable, NAD ER Course: Pepcid 20mg IV Zofran 4mg IV Tylenol 1gm Labetalol 10mg IV Reglan 5mg IV Benadryl 25mg IV x 2 Insulin gtt initiated Principal Diagnosis Recurrent cyclic vomiting due to gastroparesis, uncontrolled hypertension, suspected DKA on admission Discharge Exam General-alert and oriented x3, no fever, no chills HEENT-head atraumatic and normocephalic, pupils equal and reactive to light, extraocular muscles intact Neck-no lymphadenopathy or thyromegaly, trachea midline Chest-clear to auscultation. No rales, wheezing or rhonchi Cardiac-regular rate and rhythm, normal S1 and S2 Abdomen-normal bowel sounds, nondistended, nontender, no hepatosplenomegaly Extremities-no cyanosis, clubbing, or edema Neuro-cranial nerves II through XII intact, motor and sensory function within normal limits, strength symmetrical, no focal deficits Psych-normal affect, normal mood Discharge Data Allergies Allergy/AdvReac Type Severity Reaction Status Date / Time shellfish derived Allergy Severe anaphylaxis Verified 09/12/23 17:40 codeine Allergy Intermediate Hives Verified 09/12/23 17:40 promethazine Allergy Intermediate itchy/hives Verified 09/12/23 17:40 Consultations 09/19/23 18:54 ED Decision to Admit Stat 09/20/23 13:56 Consult Nephrology Routine Ordered Studies 09/19/23 16:57 CT abd pelvis wo con Stat CT head/brain wo con Stat Hospital Course (1) Nausea & vomiting: Recurrent. No hematemesis. Now resolved on IV scheduled Reglan. Will continue oral dosing at discharge. Diet has been advanced. He denies marijuana use. Probable cause is underlying gastroparesis. (2) Hyperglycemia due to type 1 diabetes mellitus: Suspected DKA on admission. Insulin drip has been switched to basal Lantus. He will resume his usual home management at discharge. Diet has been advanced. Stable. (3) Hypertension: He required intravenous hydralazine on the morning of September 20. He is now on oral hydralazine which has was uptitrated on September 21 for better blood pressure control. Telemetry. He is also on carvedilol. (4) ESRD (end stage renal disease): Nephrology consultation and recommendations appreciated. Continue HD q M/W/ . Serial labs (5) Diabetic gastroparesis: Symptomatic improvement with parenteral scheduled Reglan therapy. Continue oral Reglan therapy before meals and at bedtime at discharge. Supportive care. Diet has been advanced (6) GERD (gastroesophageal reflux disease): Stable. Protonix has been switched from IV to oral dosing (7) Anxiety: Stable. Continue current medical management (8) Anemia of chronic disease: Due to end-stage renal disease. Serial labs. Plan Home today, September 22, after his hemodialysis is completed Total Time Total Time Spent Total Time Spent (In Minutes): 45 minutes Discharge Plan Discharge Items Patient Disposition: Home - Self-Care Reason For Visit: NAUSEA, VOMITING, HYPERGLYCEMIA Discharge Diagnosis: Recurrent cyclic nausea and vomiting thought to be due to gastroparesis, uncontrolled hypertension, possible DKA present on admission Activity: Resume your previous activity Non-emergency contact: Primary Care Provider Call non-emergency contact if: your symptoms worsen Follow-up/Referrals: Genet Cool MD [Primary Care Provider] - Diet: Carb Count or DM1 Addtl Attending Provider Instructions: Take Reglan (metoclopramide (5 mg before meals and at bedtime. Hydralazine is also new for blood pressure control. All other medications remain the same Pending Studies at Discharge: No Stand-Alone Forms: [employer], Smoking Cessation Medications and DC Order Prescriptions: New hydralazine 50 mg Tablet 50 mg PO TID Qty: 100 0RF metoclopramide HCl 5 mg tablet 5 mg PO ACHS Qty: 100 0RF Continued acetaminophen 325 mg capsule 650 mg PO Q4H PRN (Reason: Pain (Scale Score 1-3)) atorvastatin 10 mg tablet 10 mg PO QAM Qty: 90 1RF pantoprazole [Protonix] 40 mg tablet,delayed release (DR/EC) 40 mg PO QAM Qty: 90 1RF lorazepam 0.5 mg tablet 0.5 mg PO Q8H PRN (Reason: severe nausea) Qty: 30 0RF mirtazapine 7.5 mg tablet 7.5 mg PO HS midodrine 5 mg tablet 5 mg PO .COMPLEX Rx Instructions: 5 mg orally as needed at dialysis; ondansetron HCl 4 mg tablet 8 mg PO Q4 PRN (Reason: nausea or vomiting) Qty: 60 2RF melatonin 1 mg tablet 4 mg PO HS PRN (Reason: Sleep) sertraline 100 mg tablet 100 mg PO QAM Rx Instructions: TOTAL DOSE 125 MG--TAKES WITH 25 MG TAB. sertraline 25 mg tablet 25 mg PO QAM Rx Instructions: TOTAL DOSE 125 MG--TAKES WITH 100 MG TAB. carvedilol [Coreg] 12.5 mg tablet 12.5 mg PO BID Qty: 30 3RF Rx Instructions: must administer with a meal/food lanthanum 500 mg tablet,chewable 500 mg PO DIRECTED Rx Instructions: 1 tablet with meals and 1 with snacks= 6 tab for the day Novolin R FlexPen 100 unit/mL (3 mL) insulin pen 0 sliding scale dose subcut TIDM Patient Comments: 9 units insulin glargine [Basaglar KwikPen U-100 Insulin] 100 unit/mL (3 mL) insulin pen 20 unit SUBCUT QAM Discharge Orders: Discharge Order (Routine); Ordered 09/23/23 Ordered By: Godwin Ray Admission Data Admit Date/Time: 09/21/23 08:31 Attending Provider: Godwin Ray Admit Provider: Marielos Cervantes Primary Care Provider: Genet Cool Other Providers: Marielos Cervantes; Suman Montilla Coding Level of Care Code 61909 INP/OBS DISCH >30 MIN Diagnoses Nausea & vomiting R11.2 Vomiting Intractability: intractable Vomiting type: unspecified Hyperglycemia due to type 1 diabetes mellitus E10.65 Hypertension I10 Hypertension type: unspecified ESRD (end stage renal disease) N18.6 Diabetic gastroparesis E11.43; K31.84 GERD (gastroesophageal reflux disease) K21.9 Esophagitis presence: without esophagitis Anxiety F41.9 Anemia of chronic disease D63.8
[2023-09-23] MEDS: EPOETIN ALFA 10,000 UNITS/ML VIAL IV ONE (15:42)
[2023-09-23] MEDS: LANTUS PER UNIT CHARGE SQ ONE (16:55)
== END 2023-09-23 17:25 | disposition home or self-care (01) | DRG 73 ==
LOC: SUATTDRO → ED 15:03 → 2N 15:03 → SUATTDRO 19:32 → 2N 21:01

== ENCOUNTER 2023-09-27 22:16 | Inpatient (IN) ==
--- OUTSIDE RECORDS SUMMARY | 2023-09-27 22:25 | External Medical Summary | Summary of Care ---
Author Name Unknown Organization [facility] Address [address] [place] [address] Phone [phone] Care Team Providers Care Lending Manager Name Role Phone Genet Cool MD Primary Care Provid er Reason for Visit * Reason Onset Date Comments Advice 09/18/2023 Encounter Details Date Type Department Care Team (Late st Contact Info) Description 09/18/2023 Telephone Vascular Surg [facility] [address] [place] [address] Julian James MD [address] [place] [address] Advice Allergies Active Allergy Reactions Criticality Noted Date Comments Codeine Itching 05/24/2019 Promethazine Hcl Hives 10/19/2010 Shellfish-Derived Products Anaphylaxis High 04/26/20 18 documented as of this encounter (statuses as of 09/25/2023) Medications Medication Sig Dispensed Refills Start Date [...] in the morning. 0 12/16/2018 Active B Serhlhj-I-Xcsmv Acid (RENAL VITAMIN) 1 MG Capsule TAKE [...] as of this encounter (statuses as of 09/25/2023) Active Problems Problem Noted Date Diagnosed Date [...] compression fracture 03/15/2016 ETOH abuse 04/05/2012 Overview: [facility] Admission with DKA March 2012 DKA, type [...] as of this encounter (statuses as of 09/25/2023) Resolved Problems Problem Noted Date Diagnosed Date [...] as of this encounter (statuses as of 09/25/2023) Immunizations Name Administration Dates Next Due COVID-19 [...] encounter Miscellaneous Notes * Telephone Encounter - Becky Nunes, MORELIA - 09/25/2023 11:01 AM EDT Letter faxed * Telephone Encounter - Marisol Chase PA-C - 09/25/2023 10:09 AM EDT Please fax letter. Thanks! * Telephone Encounter - Becky Nunes OSA - 09/25/2023 9:56 AM EDT I received an email from Radha at the dialysis unit and she is asking if we can fax a pre-op instruction letter to [phone] so they have all the details to review with patient. * Telephone Encounter - Marisol Chase PA-C - 09/21/2023 9:38 AM EDT Orders signed and held * Telephone Encounter - Becky Nunes OSA - 09/21/2023 9:19 AM EDT I emailed Radha to let her know we do not have any available T/Th appointments until 10/05. She said as of today, patient is admitted to [facility] and that anytime after 10/05 would be ok. I told her I would go ahead and put him on for 10/05. She will reach out if anything changes or we need to push fistulagram out more. Fistulagram scheduled for 10/[address] Lopez * Telephone Encounter - Ani Kang CRNP - 09/18/2023 4:07 PM EDT Patient known to Erika. Please schedule left arm fistulagram per the request below. NPO after midnight No insulin on morning of surgery Will place order in case once scheduled. * Telephone Encounter - eBcky Nunes OSA - 09/18/2023 3:54 PM EDT Good Afternoon, My name is Radha and I am the new Vascular Power Reactor Supervisor here at [facility]. I am emailing you in regards to [...] for it. If you need any further information or have any questions please feel free to reach out via email or phone. Thank you! Radha ?? documented in this encounter Plan of Treatment Upcoming Encounters Date Type Department Care Team (Latest Contact Info) Description 4 10:56 AM EDT Hospital Encounter OR [facility], OPERATING ROOM [facility] [address] [place] [phone] Don Lopez MD [address] [place] [address] 4 10:56 AM EDT - 4 12:34 PM EDT Surgery OR [facility], OPERATING ROOM [facility] [address] [facility] [place] [phone] Don Lopez MD [address] [place] [address] AV FISTULOGRAM & PERIPHERAL ANGIOPLASTY 4 10:15 AM EDT Office Visit Ophthalmology, [facility] [address] [place] [address] Dewayne Flores DO [address] [place] [address] 4 11:45 AM EDT Office Visit Urology, [facility] [address] [facility] [place] [address] Sha Rey MD [address] [address] [place] [address] 4 10:13 AM EDT Hospital Encounter OR [facility], Operating Room, [facility] - 4th Floor [address] [facility] [place] [address] Tim Browne MD [address] [place] [address] 4 10:13 AM EDT - 4 11:39 AM EDT Surgery OR [facility] [place], Operating Room, [facility] - 4th Floor [address] [facility] [place] [address] Tim Browne MD [address] [place] [address] ESOPHAGOGASTRODUODENOSCOPY (EGD), FLEXIBLE, TRANSORAL, DIAGNOSTIC 4 9:30 AM EDT Office Visit Gastroenterolog y, [facility] [address] [place] [address] Ximena Greenberg CRNP [address] [place] [address] Scheduled Procedures Name Priority Associated Diagnoses Date/Ti me AV FISTULOGRAM & PERIPHERAL ANGIOPLASTY ESRD (end stage renal disease) (HCC) 10/06/2023 10:56 AM EDT ESOPHAGOGASTRODUODENOSCOPY ( EGD), FLEXIBLE, TRANSORAL, DIAGNOSTIC GERD [...] 08/20/2021, Additional history exists HbA1c 01/12/2024 07/14/2023, 2 08/2023, 10/15/2022, Additional history exists Influenza Vaccine (FLU [...] Documents on File Type Date Recorded Patient Shipyard Painter Expl anation Power of Imaging Analyst 01/15/2021 POWER OF A TTORNEY Latest Code Status on File Code Status Date Activated Date Inactivated Comments Full Code 06/29/2023 8:35 PM 07/01/2023 8:09 PM This order reflects the patients wishes and were consensually agreed upon. Question Answer Comments Discussion of Advance Directives occurred with: Patient Does the patient have a Living Will? No Does the patient have Health Care Power of Imaging Analyst? No Code Status History Code Status Date [...] the patient have Health Care Power of Imaging Analyst? No Full Code 01/13/2021 1:16 PM 01/14/2021 7:45 PM This or afua reflects the patients wishes and were consensually agreed upon. Full Code 11/15/2020 6:43 PM 11/20/2020 7:42 PM This order reflects the patients wishes and were consensually agreed upon. Question Answer Comments Discussion of Advance Directives occurred with: Patient Care Teams Lending Manager Relationship Specialty Start Date End Date Genet Cool MD [address] [place] [address] [place] [address] PCP - General Internal Medicine 01/06/23 documented as of this encounter
--- OUTSIDE RECORDS SUMMARY | 2023-09-27 22:26 | External Medical Summary ---
Author Name Unknown Address Unknown Organization : Laboratory Report Ordering Provider Test Date Status YAMILA PENA 09/14/2023 07:51:00 Final Observation Date Value Abnormality Reference (Units ) Status REFERENCE LAB SCANNED REPORT 09/14/2023 07:51:00 See Scanned Report Final Performing Location
--- OUTSIDE RECORDS SUMMARY | 2023-09-27 22:26 | External Medical Summary | Summary of Care ---
Author Name Unknown Organization [facility] Address [address] [place] [address] Phone [phone] Care Team Providers Care Call Out Operator Name Role Phone Genet Cool MD Primary Care Provid er Reason for Visit * Reason Onset Date Comments Advice 09/18/2023 Encounter Details Date Type Department Care Team (Late st Contact Info) Description 09/18/2023 Telephone Vascular Surg [facility] [address] [place] [address] Julian James MD [address] [place] [address] Advice Allergies Active Allergy Reactions [...] in the morning. 0 12/16/2018 Active B Bvvlwjf-S-Cxilq Acid (RENAL VITAMIN) 1 MG Capsule TAKE [...] compression fracture 03/15/2016 ETOH abuse 04/05/2012 Overview: [facility] Admission with DKA March 2012 DKA, [...] Encounter - Becky Nunes, MORELIA - 09/25/2023 9:56 AM EDT I received an email from Radha at the dialysis unit and she is asking if we can fax a pre-op instruction letter to [phone] so they have all the details to [...] as of today, patient is admitted to [facility] and that anytime after 10/05 would be [...] Radha and I am the new Vascular Customer Sales Specialist here at [facility]. I am emailing you in regards [...] 4 10:56 AM EDT Hospital Encounter [place] [facility]OM [facility] [address] [place] [address] Don Lopez MD [address] [place] [address] 4 10:56 AM EDT - 4 12:34 PM EDT Surgery [place] [facility] ROOM [facility] [address] [facility] [place] [phone] Don Lopez MD [address] [place] [address] AV FISTULOGRAM & PERIPHERAL ANGIOPLASTY 4 10:15 AM EDT Office Visit Ophthalmology, [facility] [address] [place] [address] Dewayne Flores, [address] [place] [address] 4 11:45 AM EDT Office Visit Urology, [facility] [address] [place] [address] Sha Rey MD [address] [place] [address] [place] [address] 4 10:13 AM EDT Hospital Encounter OR [facility], Operating Room, [facility] - 4th Floor [address] [place] [address] Tim Browne MD [address] [place] [address] 4 10:13 AM EDT - 4 11:39 AM EDT Surgery OR [facility], Operating Room, [facility] - 4th Floor [address] [place] [address] Tim Browne MD [address] [facility] [place] [address] ESOPHAGOGASTRODUODENOSCOPY (EGD), FLEXIBLE, TRANSORAL, DIAGNOSTIC 4 9:30 AM EDT Office Visit Gastroenterolog y, [facility] [address] [place] [address] Ximena Greenberg CRNP [address] [place] [address] Scheduled Procedures Name Priority Associated Diagnoses Date/Ti [...] Documents on File Type Date Recorded Patient Plant Superintendent Expl anation Power of Crew Leader/Control Room Operator 01/15/2021 POWER OF A TTORNEY Latest Code Status on File Code Status Date Activated Date Inactivated Comments Full Code 06/29/2023 8:35 PM 07/01/2023 8:09 PM This order reflects the patients wishes and were consensually agreed upon. Question Answer Comments Discussion of Advance Directives occurred with: Patient Does the patient have a Living Will? No Does the patient have Health Care Power of Crew Leader/Control Room Operator? No Code Status History Code Status Date [...] the patient have Health Care Power of Crew Leader/Control Room Operator? No Full Code 01/13/2021 1:16 PM 01/14/2021 7:45 PM This or afua reflects the patients wishes and were consensually agreed upon. Full Code 11/15/2020 6:43 PM 11/20/2020 7:42 PM This order reflects the patients wishes and were consensually agreed upon. Question Answer Comments Discussion of Advance Directives occurred with: Patient Care Teams Call Out Operator Relationship Specialty Start Date End Date Genet Cool MD [address] [place] [address] [place] [address] PCP - General Internal Medicine 01/06/23 documented as of this encounter
--- OUTSIDE RECORDS SUMMARY | 2023-09-27 22:26 | External Medical Summary | Summary of Care ---
Author Name Unknown Organization [facility] Address [address] [place] [address] Phone [phone] Care Team Providers Care Quality Control Analyst Name Role Phone Genet Cool MD Primary Care Provid er Reason for Visit * Reason Onset Date Comments Advice 09/18/2023 Encounter Details Date Type Department Care Team (Late st Contact Info) Description 09/18/2023 Telephone Vascular Surg [facility] [address] [place] [address] Julian James MD [address] [place] [address] Advice Allergies Active Allergy Reactions Criticality Noted Date Comments Codeine Itching 05/24/2019 Promethazine Hcl Hives 10/19/2010 Shellfish-Derived Products Anaphylaxis High 04/26/20 18 documented as of this encounter (statuses as of 09/21/2023) Medications Medication Sig Dispensed Refills Start Date [...] in the morning. 0 12/16/2018 Active B Einezno-Y-Djuqt Acid (RENAL VITAMIN) 1 MG Capsule TAKE [...] as of this encounter (statuses as of 09/21/2023) Active Problems Problem Noted Date Diagnosed Date [...] compression fracture 03/15/2016 ETOH abuse 04/05/2012 Overview: [facility] Admission with DKA March 2012 DKA, [...] as of this encounter (statuses as of 09/21/2023) Resolved Problems Problem Noted Date Diagnosed Date [...] as of this encounter (statuses as of 09/21/2023) Immunizations Name Administration Dates Next Due COVID-19 [...] Telephone Encounter - Becky Nunes, MORELIA - 09/21/2023 9:19 AM EDT I emailed Radha to let her know we do not have any available T/Th appointments until 10/05. She said as of today, patient is admitted to [facility] and that anytime after 10/05 would [...] Radha and I am the new Vascular White Work Cleaner here at [facility]. I am emailing you in [...] Care Team (Latest Contact Info) Description 4 Hospital Encounter OR [facility], OPERATING ROOM [facility], [facility] [place] [address] [place] [phone] Don Lopez MD [address] [place] [address] 4 10:15 AM EDT Office Visit [facility]hthalmology, [facility] [place] [address] Dewayne Flores DO [address] [place] [address] 4 11:45 AM EDT Office Visit Urology, [facility] [place] [address] Sha Rey MD [address] [facility] [address] [place] [address] 4 10:13 AM EDT Hospital Encounter OR [facility], Operating Room, [facility] - 4th Floor [address] [place] [address] Tim Browne MD [address] [place] [address] 4 10:13 AM EDT - 4 11:39 AM EDT Surgery OR [facility], Operating Room, [facility] - 4th Floor [address] [facility] [place] [address] Tim Browne MD [address] [place] [address] ESOPHAGOGASTRODUODENOSCOPY (EGD), FLEXIBLE, TRANSORAL, DIAGNOSTIC 4 9:30 AM EDT Office Visit Gastroenterolog y, [facility] [address] [place] [address] Ximena Greenberg CRNP [address] [place] [address] Scheduled Procedures Name Priority Associated Diagnoses Date/Ti me AV FISTULOGRAM & PERIPHERAL ANGIOPLASTY ESRD (end stage renal disease) (HCC) ESOPHAGOGASTRODUODENOSCOPY ( EGD), FLEXIBLE, TRANSORAL, DIAGNOSTIC GERD [...] Documents on File Type Date Recorded Patient Circuit Board Assembler Expl anation Power of Soft Crab Shedder 01/15/2021 POWER OF A TTORNEY Latest Code Status on File Code Status Date Activated Date Inactivated Comments Full Code 06/29/2023 8:35 PM 07/01/2023 8:09 PM This order reflects the patients wishes and were consensually agreed upon. Question Answer Comments Discussion of Advance Directives occurred with: Patient Does the patient have a Living Will? No Does the patient have Health Care Power of Soft Crab Shedder? No Code Status History Code Status Date [...] the patient have Health Care Power of Soft Crab Shedder? No Full Code 01/13/2021 1:16 PM 01/14/2021 7:45 PM This or afua reflects the patients wishes and were consensually agreed upon. Full Code 11/15/2020 6:43 PM 11/20/2020 7:42 PM This order reflects the patients wishes and were consensually agreed upon. Question Answer Comments Discussion of Advance Directives occurred with: Patient Care Teams Quality Control Analyst Relationship Specialty Start Date End Date Genet Cool MD [address] [place] [address] [place] [address] PCP - General Internal Medicine 01/06/23 documented as of this encounter
--- OUTSIDE RECORDS SUMMARY | 2023-09-27 22:26 | External Medical Summary | Summary of Care ---
Author Name Unknown Organization [facility] Address [address] [place] [address] Phone [phone] Care Team Providers Care Hearing Examiner Name Role Phone Genet Cool MD Primary Care Provid er Reason for Visit * Reason Onset Date Comments Advice 09/18/2023 Encounter Details Date Type Department Care Team (Late st Contact Info) Description 09/18/2023 Telephone Vascular Surg [facility] [address] [place] [address] Julian James MD [address] [place] [address] Advice Allergies Active Allergy Reactions [...] in the morning. 0 12/16/2018 Active B Zsuliir-X-Xzixg Acid (RENAL VITAMIN) 1 MG Capsule TAKE [...] compression fracture 03/15/2016 ETOH abuse 04/05/2012 Overview: [facility] Admission with DKA March 2012 DKA, [...] encounter Miscellaneous Notes * Telephone Encounter - Mraisol Chase PA-C - 09/25/2023 10:09 AM EDT Please fax letter. Thanks! * Telephone Encounter - Becky Nunes OSA - 09/25/2023 9:56 AM EDT I received an email from Radha at the dialysis unit and she is asking if we can fax a pre-op instruction letter to [phone] so they have all the details to [...] as of today, patient is admitted to [facility] and that anytime after 10/05 would be [...] Radha and I am the new Vascular Thermal Molder here at [facility]. I am emailing you in regards to [...] 4 10:56 AM EDT Hospital Encounter [place] [facility] [facility] [address] [place] [address] Don Lopez MD [address], [place] [id number] 4 10:56 AM EDT - 4 12:34 PM EDT Surgery OR [facility] [facility] [address] [place] [phone] Don Lopez MD [address], [place] [id number] AV FISTULOGRAM & PERIPHERAL ANGIOPLASTY 4 10:15 AM EDT Office Visit Ophthalmology, [facility] [address] [place] [address] Dewayne Flores DO [address] [place] [address] 4 11:45 AM EDT Office Visit Urology, [facility] [address] [place] [address] Sha Rey MD [address] [place] [address] [place] [address] 4 10:13 AM EDT Hospital Encounter OR [facility], Operating Room, [facility] - 4th Floor [address] [place] [address] Tim Browne MD [address] [place] [address] 4 10:13 AM EDT - 4 11:39 AM EDT Surgery OR [facility], Operating Room, [facility] - 4th Floor [address] [place] [address] Tim Browne MD [address] [place] [address] ESOPHAGOGASTRODUODENOSCOPY (EGD), FLEXIBLE, TRANSORAL, DIAGNOSTIC 4 9:30 AM EDT Office Visit Gastroenterolog y, [facility] [address] [place] [address] Ximena Greenberg CRNP [address] [place] [address] Scheduled Procedures Name Priority Associated Diagnoses Date/Ti [...] Documents on File Type Date Recorded Patient Surveillance Monitor Expl anation Power of Cognos Lead 01/15/2021 POWER OF A TTORNEY Latest Code Status on File Code Status Date Activated Date Inactivated Comments Full Code 06/29/2023 8:35 PM 07/01/2023 8:09 PM This order reflects the patients wishes and were consensually agreed upon. Question Answer Comments Discussion of Advance Directives occurred with: Patient Does the patient have a Living Will? No Does the patient have Health Care Power of Cognos Lead? No Code Status History Code Status Date [...] the patient have Health Care Power of Cognos Lead? No Full Code 01/13/2021 1:16 PM 01/14/2021 7:45 PM This or afua reflects the patients wishes and were consensually agreed upon. Full Code 11/15/2020 6:43 PM 11/20/2020 7:42 PM This order reflects the patients wishes and were consensually agreed upon. Question Answer Comments Discussion of Advance Directives occurred with: Patient Care Teams Hearing Examiner Relationship Specialty Start Date End Date Genet Cool MD [address] [place] [address] [place] [id number] PCP - General Internal Medicine 01/06/23 documented as of this encounter
--- OUTSIDE RECORDS SUMMARY | 2023-09-27 22:26 | External Medical Summary | Summary of Care ---
Author Name Unknown Organization [facility] Address [address] [place] [address] Phone [phone] Care Team Providers Care Stitcher Tape Controlled Machine Name Role Phone Genet Cool MD Primary Care Provid er Reason for Visit * Reason Onset Date Comments Advice 09/18/2023 Encounter Details Date Type Department Care Team (Late st Contact Info) Description 09/18/2023 Telephone Vascular Surg [facility] [address] [place] [address] Julian James MD [address] [place] [address] Advice Allergies Active Allergy Reactions [...] in the morning. 0 12/16/2018 Active B Vkeaekd-I-Zvzow Acid (RENAL VITAMIN) 1 MG Capsule TAKE [...] compression fracture 03/15/2016 ETOH abuse 04/05/2012 Overview: [facility] Admission with DKA March 2012 DKA, [...] encounter Miscellaneous Notes * Telephone Encounter - Marisol Chase PA-C - 09/25/2023 10:09 AM EDT Please fax letter. Thanks! * Telephone Encounter - Becky Nunes OSA - 09/25/2023 9:56 AM EDT I received an email from Radha at the dialysis unit and she is asking if we can fax a pre-op instruction letter to [phone] so they have all the details to [...] as of today, patient is admitted to [facility] and that anytime after 10/05 would be [...] Radha and I am the new Vascular Nuclear Plant Instrument Technician here at [facility]. I am emailing you in regards [...] 4 10:56 AM EDT Hospital Encounter [place] [facility] [facility] [address] [place] [address] Don Lopez MD [address] [place], [place] [phone] 4 10:56 AM EDT - 4 12:34 PM EDT Surgery [place] [facility], OPER[place] ROOM [facility] [address] [place] [phone] Don Lopez MD [address] [place], [place] [phone] AV FISTULOGRAM & PERIPHERAL ANGIOPLASTY 4 10:15 AM EDT Office Visit Ophthalmology, [facility] [address] [place] [address] Dewayne Flores DO [address] [place] [address] 4 11:45 AM EDT Office Visit Urology, [facility] [address] [place] [address] Sha Rey MD [address] [place] [address] 4 10:13 AM EDT Hospital Encounter OR GL, Operating Room, [facility] - 4th Floor [address] [place] [address] Tim Browne MD [address] [place] [address] 4 10:13 AM EDT - 4 11:39 AM EDT Surgery OR [facility], Operating Room, [facility] - 4th Floor [address] [place] [address] Tim Browne MD [address] [place] [address] ESOPHAGOGASTRODUODENOSCOPY (EGD), FLEXIBLE, TRANSORAL, DIAGNOSTIC 4 9:30 AM EDT Office Visit Gastroenterolog y, [facility] [address] [place] [address] Ximena Greenberg CRNP [address] [place] [address] Scheduled Procedures Name Priority Associated Diagnoses Date/Ti [...] Documents on File Type Date Recorded Patient Foot Press Operator Expl anation Power of Excel Developer 01/15/2021 POWER OF A TTORNEY Latest Code Status on File Code Status Date Activated Date Inactivated Comments Full Code 06/29/2023 8:35 PM 07/01/2023 8:09 PM This order reflects the patients wishes and were consensually agreed upon. Question Answer Comments Discussion of Advance Directives occurred with: Patient Does the patient have a Living Will? No Does the patient have Health Care Power of Excel Developer? No Code Status History Code Status Date [...] the patient have Health Care Power of Excel Developer? No Full Code 01/13/2021 1:16 PM 01/14/2021 7:45 PM This or afua reflects the patients wishes and were consensually agreed upon. Full Code 11/15/2020 6:43 PM 11/20/2020 7:42 PM This order reflects the patients wishes and were consensually agreed upon. Question Answer Comments Discussion of Advance Directives occurred with: Patient Care Teams Stitcher Tape Controlled Machine Relationship Specialty Start Date End Date Genet Cool MD [address] [place] [address] [place] [id number] PCP - General Internal Medicine 01/06/23 documented as of this encounter
--- OUTSIDE RECORDS SUMMARY | 2023-09-27 22:26 | External Medical Summary | Summary of Care ---
Author Name Unknown Organization [facility] Address [address] [place] [address] Phone [phone] Care Team Providers Care Warehouse Coordinator Name Role Phone Genet Cool MD Primary Care Provid er Reason for Visit * Reason Onset Date Comments Advice 09/18/2023 Encounter Details Date Type Department Care Team (Late st Contact Info) Description 09/18/2023 Telephone Vascular Surg [facility] [address] [place] [address] Julian James MD [address] [place] [address] Advice Allergies Active Allergy Reactions [...] in the morning. 0 12/16/2018 Active B Ljcnjje-D-Vxkar Acid (RENAL VITAMIN) 1 MG Capsule TAKE [...] as of today, patient is admitted to [facility] and that anytime after 10/05 would [...] Radha and I am the new Vascular Tents Assembler here at [facility]. I am emailing you in regards [...] Contact Info) Description 4 Hospital Encounter OR [facility], OPERATING ROOM [facility] [address] [place] [phone] Don Lopez MD [address] [place], [place] [phone] 4 10:15 AM EDT Office Visit Ophthalmology, [facility] [address] [place] [address] Dewayne Flores DO [address] [place] [address] 4 11:45 AM EDT Office Visit Urology, [facility] [address] [place] [address] Sha Rey MD [address] [facility] [address] [place] [address] 4 10:13 AM EDT Hospital Encounter OR [facility], Operating Room, [facility] - 4th Floor [address] [place] [address] Tim Browne MD [address] [place] [address] 4 10:13 AM EDT - 4 11:39 AM EDT Surgery OR [facility], Operating Room, [facility] - 4th Floor [address] [place] [address] Tim Browne MD [address] [place] [address] ESOPHAGOGASTRODUODENOSCOPY (EGD), FLEXIBLE, TRANSORAL, DIAGNOSTIC 9:30 AM EDT Office [facility] [address] [place] [address] Ximena Greenberg CRNP [address] [place] [address] Scheduled Procedures Name Priority Associated Diagnoses Date/Ti [...] Documents on File Type Date Recorded Patient Diathermy Equipment Repairer Expl anation Power of Bead Filler 01/15/2021 POWER OF A TTORNEY Latest Code Status on File Code Status Date Activated Date Inactivated Comments Full Code 06/29/2023 8:35 PM 07/01/2023 8:09 PM This order reflects the patients wishes and were consensually agreed upon. Question Answer Comments Discussion of Advance Directives occurred with: Patient Does the patient have a Living Will? No Does the patient have Health Care Power of Bead Filler? No Code Status History Code Status Date [...] the patient have Health Care Power of Bead Filler? No Full Code 01/13/2021 1:16 PM 01/14/2021 7:45 PM This or afua reflects the patients wishes and were consensually agreed upon. Full Code 11/15/2020 6:43 PM 11/20/2020 7:42 PM This order reflects the patients wishes and were consensually agreed upon. Question Answer Comments Discussion of Advance Directives occurred with: Patient Care Teams Warehouse Coordinator Relationship Specialty Start Date End Date Genet Cool MD [address] [place] [address] [place] [address] PCP - General Internal Medicine 01/06/23 documented as of this encounter
[2023-09-27 23:02] LABS: Basophils # (auto) 0.04 K/uL (0.00-0.20); Basophils % (auto) 0.3 %; Eosinophils # (auto) 0.67 K/uL (0.00-0.50); Eosinophils % (auto) 5.6 %; Hematocrit (blood only) 29.8 % (42.0-52.0); Hemoglobin 9.7 g/dl (14.0-18.0); Immature Granulocytes # (auto) 0.07 K/uL (0.01-0.20); Immature Granulocytes % (auto) 0.6 %; Lymphocytes # (auto) 1.25 K/uL (1.20-3.40); Lymphocytes % (auto) 10.5 %; Mean Corpuscular Hemoglobin 33.2 pg (25.0-34.0); Mean Corpuscular Hgb Conc 32.6 g/dL (32.0-36.0); Mean Corpuscular Volume 102.1 fL (80.0-100.0); Monocytes # (auto) 1.56 K/uL (0.11-0.59); Monocytes % (auto) 13.1 %; Neutrophils # (auto) 8.31 K/uL (1.40-6.50); Neutrophils % (auto) 69.9 %; Platelet Count 396 K/uL (130-400); RDW Coefficient of Variation 13.7 % (11.5-14.5); RDW Standard Deviation 50.8 fL (36.4-46.3); Red Blood Count 2.92 M/uL (4.70-6.10)
[2023-09-27 23:24] LABS: Albumin Globulin Ratio 1.2 (0.9-2); Albumin Level 3.5 gm/dl (3.4-5.0); BUN Creatinine Ratio 7.3 (10-20); Bilirubin,Total 0.4 mg/dl (0.2-1.0); Calcium 8.2 mg/dl (8.6-10.3); Creatinine Clr Calc Pharmacy 9.2 ml/min; Est GFR (African American) 7.1 ml/min; Est GFR (Non-African American) 6.1 ml/min; Globulin 2.9 gm/dl (2.5-4.0); Potassium 4.3 mmol/L (3.5-5.1); Total Protein 6.4 gm/dl (6.0-8.3)
[2023-09-27 23:27] LABS: Prothrombin Time 10.5 Seconds (9.0-12.0)
--- NOTE | 2023-09-28 00:06 | Emergency Department Note ---
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 Denies any trauma here. Noticed just today. Was hospitalized last week but states his nausea is improved and has been drinking okay. No fevers. No wounds. No recent travel. Denies chest pain or shortness of breath. Denies swelling of the upper leg or significant issues with the left leg. Did have a PE several years ago and was on Coumadin at that time but no longer. Not on aspirin or other blood thinners. Denies fatigue, confusion, or dizziness. PAST MEDICAL HISTORY: As noted above MEDICATIONS: Reviewed home medications not on anticoagulants SOCIAL HISTORY: Former smoker PHYSICAL EXAM: GENERAL: alert and oriented in no acute distress on stretcher, father at bedside Head: normocephalic and atraumatic EYES: No injection, discharge or icterus. EOMI. NECK: Trachea midline. ENT: Mucous membranes pink and moist. LUNGS: Airway patent. No retractions or tachypnea HEART: Regular rate and rhythm. No chest wall tenderness ABDOMEN: Soft and non-tender, without guarding or rebound. SKIN: Acyanotic, warm, dry, without rashes EXTREMITIES: Without swelling, tenderness or deformity however with some erythema and swelling particular to the right foot to about the ankle. No wounds. Not significantly tender. NEUROLOGICAL: No focal deficits. No aphasia. No facial droop or slurred speech. Sensation to gross touch normal in the right lower extremity. Ambulatory. Patient's laboratory studies and imaging reviewed. Differential includes DVT, musculoskeletal, infection, joint effusion, trauma, lymphedema, idiopathic, CHF, as well as other pathologies. IMPRESSION/MEDICAL DECISION MAKING: No evidence of significant wound to the right leg. No reported significant trauma. Does seem some swelling and erythema. Recently hospitalized but no recent travel. Has basic labs ordered as well as ultrasound. Blood with a slightly improving leukocytosis. Mild anemia 9.7. Normal platelet count. Hyponatremia of 127 but denies significant symptoms. Will send osm's and urine but is scheduled for dialysis tomorrow in regards to the hyponatremia but does not seem symptomatic and will not aggressively treat at this time. No hyperkalemia. No anion gap. No significant respiratory symptoms and I do not believe he needs emergent dialysis. Ultrasound completed with concerns for DVT in the right calf. Unfortunately given his significant renal dysfunction on dialysis not a candidate for DOAC or Lovenox -- discussed with pharmacy. Will start on heparin drip for anticoagulation at this time. Denies any recent bleeding or significant bleeding issues in the past including GI bleed. Do not believe x-rays are needed. Doubt infection here. Will bring in for further evaluation with transition likely from heparin to warfarin. Hospitalist contacted. DIAGNOSIS: Right lower extremity DVT, end-stage renal disease on dialysis, type 1 diabetes, hyponatremia DISPOSITION: Hospitalist will evaluate Patient was agreeable with this plan. Critical Care I have personally spent 31 minutes of critical care time in the direct management of this patient. This includes bedside care, interpretation of diagnostic studies, and testing, discussion with consultants, patient, and family members, and other required patient management activities. These 33 minutes is in excess of all separately billable procedures. 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 Lor Guadalupe; [facility]) History of nephrolithiasis Personal history of diabetic foot ulcer Diabetic peripheral neuropathy associated with type 1 diabetes mellitus Cyclical vomiting syndrome Chronic pleural effusion PleurX catheter placed 01/24/21--removed 07/2021 Urolithiasis Junctional rhythm 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, with long-term current use of insulin Anemia of chronic disease Anxiety Kidney stone on right side hx Lumbar radiculopathy AV fistula left upper arm GERD (gastroesophageal reflux disease) Diabetic retinopathy Depression CAD (coronary artery disease) mild, non-obstructive CAD per 10/2018 cardiac cath> [facility] Surgical History History of colonoscopy S/P arteriovenous (AV) fistula creation left arm History of cataract surgery History of esophagogastroduodenoscopy (EGD) (~03/08/20) History of open reduction and internal fixation (ORIF) procedure right hip Nausea and vomiting after administration of anesthetic agent History of lithotripsy History of cardiac cath x2---07/28/23 @ [facility], no stents--per pt done for transplant list and 10/2018 @ [facility] (no stents) History of hip surgery left HIP ARTHROSCOPY H/O shoulder surgery RIGHT History of appendectomy Family History Grandfather Myocardial infarction Grandfather (Maternal) Family history of diabetes mellitus Uncle Myocardial infarction Father Hypertension Mother Kidney stone Other No family history of adverse response to anesthesia Denies family history of Colon cancer Ovarian cancer Prostate cancer Breast cancer Social History Smoking Status: Former smoker Tobacco Type: Smokeless Tobacco (Dip or Chew) Second Hand Exposure: No; Do You Dip or Chew Tobacco: No (quit 2018); Hx Alcohol Use: No Hx Substance Use: No Preferred Language: Filipino Communication Ability: Effective Visual Impairment: No Limitations Hearing Ability: Normal Box Icer Required: No Beliefs That Will Affect Care: None marital status: Current Living Situation: Parent Current Living Situation Comment: with alycia and babita parents current occupational status: disabled How many Children do You have: 2 Feels Safe at Home: Yes Childhood Exposure to Second-Hand Smoke: Yes Diet: regular caffeine: Yes Dental Care, Regularly: No Physical Activity Frequency: 1-2 Times per Week Seatbelt Use: always Sunscreen Use: Yes Gender Identity: Male Assistive Devices: None Allergies Allergies Allergy/AdvReac Type Severity Reaction Status Date / Time shellfish derived Allergy Severe anaphylaxis Verified 09/28/23 01:05 codeine Allergy Intermediate Hives Verified 09/28/23 01:05 promethazine Allergy Intermediate itchy/hives Verified 09/28/23 01:05 Home Meds Home Medications Medication Instructions Recorded Confirmed acetaminophen 325 mg capsule 650 mg PO Q4H PRN Pain (Scale 09/28/20 09/28/23 Score 1-3) sertraline 100 mg tablet 100 mg PO QAM 12/29/21 09/28/23 sertraline 25 mg tablet 25 mg PO QAM 12/29/21 09/28/23 melatonin 1 mg tablet 4 mg PO HS PRN Sleep 09/18/22 09/28/23 midodrine 5 mg tablet 5 mg PO .COMPLEX 02/19/23 09/28/23 mirtazapine 7.5 mg tablet 7.5 mg PO HS 02/19/23 09/28/23 lanthanum 500 mg chewable tablet 500 mg PO DIRECTED 08/09/23 09/28/23 insulin glargine 100 unit/mL (3 20 unit subcut QAM 09/12/23 09/28/23 mL) subcutaneous pen (Basaglar KwikPen U-100 Insulin) insulin regular human 100 unit/mL 0 sliding scale dose subcut TIDM 09/12/23 09/28/23 (3 mL) subcutaneous pen (Novolin R FlexPen) Previous Rx's Medication Instructions Recorded atorvastatin 10 mg tablet 10 mg PO QAM #90 tabs 08/11/22 ondansetron HCl 4 mg tablet 8 mg (2 x 4 mg) PO Q4 PRN nausea 08/14/22 or vomiting #60 tabs carvedilol 12.5 mg tablet (Coreg) 12.5 mg PO BID #30 tabs 04/08/23 pantoprazole 40 mg tablet,delayed 40 mg PO QAM #90 tabs 04/16/23 release (Protonix) lorazepam 0.5 mg tablet 0.5 mg PO Q8H PRN severe nausea 04/24/23 #30 tabs hydralazine 50 mg tablet 50 mg PO TID #100 tabs 09/23/23 metoclopramide HCl 5 mg tablet 5 mg PO ACHS #100 tabs 09/23/23 Results & Data (ED) Vital Signs Vital Signs - 24 hr 09/27/23 22:20 09/28/23 00:17 Temperature 37.8 C H Temperature Source Oral Pulse Rate 90 Pulse Rate [Right Finger] 85 Pulse Rhythm Regular Pulse Rhythm [Right Finger] Regular Pulse Strength Normal Pulse Strength [Right Finger] Normal Respiratory Rate 18 16 Respiratory Effort / Characteristics Non-Labored Spontaneous Non-Labored Respiratory Depth Normal Normal Respiratory Pattern Regular Regular Blood Pressure [Right Arm] 143/77 H Blood Pressure Mean [Right Arm] 99 Blood Pressure Position Sitting Blood Pressure Position [Right Arm] Sitting Pulse Oximetry 96 95 Oxygen Delivery Method Room Air Room Air Sepsis Recent Fever Within 48 Hours No Sepsis New/Unexplained Change in Mental Status N/A Sepsis Action Taken by Nursing No Action Required Laboratory Data 09/27/23 22:45 09/27/23 22:45 Lab Results 09/27/23 Range/Units 22:45 WBC 11.90 H (4.8-10.8) K/ul RBC 2.92 L (4.70-6.10) M/uL Hgb 9.7 L (14.0-18.0) g/dl Hct 29.8 L (42.0-52.0) % MCV 102.1 H (80.0-100.0) fL MCH 33.2 (25.0-34.0) pg MCHC 32.6 (32.0-36.0) g/dL RDW Std Deviation 50.8 H (36.4-46.3) fL RDW Coeff of Kami 13.7 (11.5-14.5) % Plt Count 396 (130-400) K/uL MPV 9.0 L (9.4-12.4) fL Immature Gran % (Auto) 0.6 % Neut % (Auto) 69.9 % Lymph % (Auto) 10.5 % Dickey % (Auto) 13.1 % Eos % (Auto) 5.6 % Baso % (Auto) 0.3 % Neut # (Auto) 8.31 H (1.40-6.50) K/uL Lymph # (Auto) 1.25 (1.20-3.40) K/uL Dickey # (Auto) 1.56 H (0.11-0.59) K/uL Eos # (Auto) 0.67 H (0.00-0.50) K/uL Baso # (Auto) 0.04 (0.00-0.20) K/uL Immature Gran # (Auto) 0.07 (0.01-0.20) K/uL PT 10.5 (9.0-12.0) Seconds INR 1.0 (0.9-1.1) Sodium 127 L (136-145) mmol/L Potassium 4.3 (3.5-5.1) mmol/L Chloride 87 L (98-107) mmol/L Carbon Dioxide 29 (21-32) mmol/L Anion Gap 11 (3-11) BUN 65 H (6-23) mg/dl Creatinine 8.85 H* (0.6-1.4) mg/dl Est Cr Clr Drug Dosing 9.2 ml/min Est GFR ( Amer) 7.1 ml/min Est GFR (Non-Af Amer) 6.1 ml/min BUN/Creatinine Ratio 7.3 L (10-20) Glucose 197 H (70-99(Fasting)) mg/dl Osmolality 297 (280-300) mOsm/kg Calcium 8.2 L (8.6-10.3) mg/dl Total Bilirubin 0.4 (0.2-1.0) mg/dl AST 9 L (13-39) U/L ALT 6 L (7-52) U/L Alkaline Phosphatase 101 (34-104) U/L Total Protein 6.4 (6.0-8.3) gm/dl Albumin 3.5 (3.4-5.0) gm/dl Globulin 2.9 (2.5-4.0) gm/dl Albumin/Globulin Ratio 1.2 (0.9-2) TSH 0.707 (0.300-4.500) uIu/ml Imaging Data Radiologist's Impression: Venous Doppler Study 09/27/23 22:24 CR Exam(s): US VENOUS RIGHT LOWER EXTREMITY EXAM: US Duplex Right Lower Extremity Veins CLINICAL HISTORY: Leg deep vein thrombosis (Deep vein thrombosis) suspected. TECHNIQUE: Real-time duplex ultrasound scan of the right lower extremity veins integrating B-mode two-dimensional vascular structure, Doppler spectral analysis, color flow Doppler imaging and compression. COMPARISON: No relevant prior studies available. FINDINGS: Deep veins: Occlusive deep veins thrombosis of the posterior tibial vein and peroneal vein. The common femoral, superficial femoral, popliteal and anterior tibial veins are patent. Superficial veins: Unremarkable. No thrombus in the visualized great saphenous vein. Soft tissues: No acute findings. No popliteal cyst. IMPRESSION: Occlusive deep veins thrombosis of the posterior tibial vein and peroneal vein. 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, with long-term current use of insulin, Acute hyponatremia Patient Disposition: Being Evaluated by Hospitalist Forms Stand Alone Forms: My [facility] Prescriptions Prescriptions: No Action acetaminophen 325 mg capsule 650 mg PO Q4H PRN (Reason: Pain (Scale Score 1-3)) atorvastatin 10 mg tablet 10 mg PO QAM Qty: 90 1RF pantoprazole [Protonix] 40 mg tablet,delayed release (DR/EC) 40 mg PO QAM Qty: 90 1RF lorazepam 0.5 mg tablet 0.5 mg PO Q8H PRN (Reason: severe nausea) Qty: 30 0RF mirtazapine 7.5 mg tablet 7.5 mg PO HS midodrine 5 mg tablet 5 mg PO .COMPLEX Rx Instructions: 5 mg orally as needed at dialysis; ondansetron HCl 4 mg tablet 8 mg PO Q4 PRN (Reason: nausea or vomiting) Qty: 60 2RF melatonin 1 mg tablet 4 mg PO HS PRN (Reason: Sleep) sertraline 100 mg tablet 100 mg PO QAM Rx Instructions: TOTAL DOSE 125 MG--TAKES WITH 25 MG TAB. sertraline 25 mg tablet 25 mg PO QAM Rx Instructions: TOTAL DOSE 125 MG--TAKES WITH 100 MG TAB. carvedilol [Coreg] 12.5 mg tablet 12.5 mg PO BID Qty: 30 3RF Rx Instructions: must administer with a meal/food lanthanum 500 mg tablet,chewable 500 mg PO DIRECTED Rx Instructions: 1 tablet with meals and 1 with snacks= 6 tab for the day Novolin R FlexPen 100 unit/mL (3 mL) insulin pen 0 sliding scale dose subcut TIDM Patient Comments: 9 units insulin glargine [Basaglar KwikPen U-100 Insulin] 100 unit/mL (3 mL) insulin pen 20 unit SUBCUT QAM hydralazine 50 mg Tablet 50 mg PO TID Qty: 100 0RF metoclopramide HCl 5 mg tablet 5 mg PO ACHS Qty: 100 0RF Referrals Referrals: Genet Cool MD [Primary Care Provider] -
--- NOTE | 2023-09-28 00:18 | Ultrasound Report ---
Exam(s): US VENOUS RIGHT LOWER EXTREMITY EXAM: US Duplex Right Lower Extremity Veins CLINICAL HISTORY: Leg deep vein thrombosis (Deep vein thrombosis) suspected. TECHNIQUE: Real-time duplex ultrasound scan of the right lower extremity veins integrating B-mode two-dimensional vascular structure, Doppler spectral analysis, color flow Doppler imaging and compression. COMPARISON: No relevant prior studies available. FINDINGS: Deep veins: Occlusive deep veins thrombosis of the posterior tibial vein and peroneal vein. The common femoral, superficial femoral, popliteal and anterior tibial veins are patent. Superficial veins: Unremarkable. No thrombus in the visualized great saphenous vein. Soft tissues: No acute findings. No popliteal cyst. IMPRESSION: Occlusive deep veins thrombosis of the posterior tibial vein and peroneal vein. Communications: Call Doctor DVT acute, progressing Electronically signed by: Odalis Marrero MD 09/28/23 00:17 AM
[2023-09-28] MEDS ORDERED: Heparin IV Adult Wt-Based Standard w/ INITIAL Bolus Protocol IV STA (00:21)
[2023-09-28] MEDS ORDERED: HEPARIN SOD (PORCINE) 1000 UNIT/ML IV ONE (00:36)
[2023-09-28 01:07] LABS: Thyroid Stimulating Hormone 0.707 uIu/ml (0.300-4.500)
[2023-09-28] MEDS: HEPARIN SOD (PORCINE) 1000 UNIT/ML IV ONE ×2 (01:15→16:11)
[2023-09-28] MEDS: HEPARIN SODIUM/DEXTROSE 25,000 UNITS/500 ML BAG IV SCH (01:15)
--- NOTE | 2023-09-28 01:16 | History & Physical Report ---
Date of Service September 28, 2023 Assessment & Plan (1) Deep vein thrombosis (DVT) of right lower extremity: Plan: - Occlusive deep veins thrombosis of the posterior tibial vein and peroneal vein in right LE - Started on heparin gtt - given ESRD will likely need to be on Warfarin for anticoagulation - recently hospitalization, but otherwise no obvious provoking factor - history of prior PE - request for [facility] records for hypercoagulability work up (2) Acute hyponatremia: Plan: - Na= 127 - recently admitted with nausea/vomiting secondary to gastroparesis, appetite deceases since he left and has been limiting sodium intake - PO fluids tonight - Caution with as he has ESRD and does not make urine - Repeat with morning labs; if still low would consider gentle IVFs (3) 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, with long- term current use of insulin: Plan: - continue Lantus 20u daily and will add ISS (4) ESRD (end stage renal disease): Plan: - ESRD HD on MWF - has not missed any sessions - consult nephrology for HD tomorrow (5) Hypertension: Plan: - continue carvedilol, hydralazine (6) Diabetic gastroparesis: Plan: - continue Reglan, Zofran, Ativan prn - continue pantoprazole (7) Anxiety: Plan: - continue sertraline, mirtazapine (8) Anemia: Plan: - anemia in the setting of ESRD on HD - hgb= 9.7; baseline 10-11 Plan Diet: DM1, Renal VTE Prophylaxis: heparin gtt Code: Full History of Present Illness Primary Care Provider: Genet Cool MD 53 year old male with a past medical history of ESRD on HD, DM-1 presenting with concern for right LE swelling. Started this afternoon. Right foot/calf erythematous and edematous. Not painful. Subjective fever at home this afternoon. Denies chest pain, dyspnea, pleuritic pain. Denies injury. No recent travel. Was hospitalized last week with nausea/vomiting thought to be secondary to gastroparesis. Notes that he had PE a number of years ago and was on Coumadin for 6 months; follows with Dr. Lennon. Is being worked up at [facility] of kidney/pancreas transplant and states that he had hypercoagulability work-up there. ED course Significant for: Venous Doppler LE with Occlusive deep veins thrombosis of the posterior tibial vein and peroneal vein. Hyponatremic- Na= 127. Anemic; Hbg=9.7. Was started on heparin gtt in ED. Allergies Allergy/AdvReac Type Severity Reaction Status Date / Time shellfish derived Allergy Severe anaphylaxis Verified 09/28/23 01:05 codeine Allergy Intermediate Hives Verified 09/28/23 01:05 promethazine Allergy Intermediate itchy/hives Verified 09/28/23 01:05 Home Medications Medication Instructions Recorded Confirmed Type acetaminophen 325 mg capsule 650 mg PO Q4H PRN Pain (Scale 09/28/20 09/28/23 History Score 1-3) sertraline 100 mg tablet 100 mg PO QAM 12/29/21 09/28/23 History sertraline 25 mg tablet 25 mg PO QAM 12/29/21 09/28/23 History atorvastatin 10 mg tablet 10 mg PO QAM #90 tabs 08/11/22 09/28/23 Rx ondansetron HCl 4 mg tablet 8 mg (2 x 4 mg) PO Q4 PRN nausea 08/14/22 09/28/23 Rx or vomiting #60 tabs melatonin 1 mg tablet 4 mg PO HS PRN Sleep 09/18/22 09/28/23 History midodrine 5 mg tablet 5 mg PO .COMPLEX 02/19/23 09/28/23 History mirtazapine 7.5 mg tablet 7.5 mg PO HS 02/19/23 09/28/23 History carvedilol 12.5 mg tablet (Coreg) 12.5 mg PO BID #30 tabs 04/08/23 09/28/23 Rx pantoprazole 40 mg tablet,delayed 40 mg PO QAM #90 tabs 04/16/23 09/28/23 Rx release (Protonix) lorazepam 0.5 mg tablet 0.5 mg PO Q8H PRN severe nausea 04/24/23 09/28/23 Rx #30 tabs lanthanum 500 mg chewable tablet 500 mg PO DIRECTED 08/09/23 09/28/23 History insulin glargine 100 unit/mL (3 20 unit subcut QAM 09/12/23 09/28/23 History mL) subcutaneous pen (Basaglar KwikPen U-100 Insulin) insulin regular human 100 unit/mL 0 sliding scale dose subcut TIDM 09/12/23 09/28/23 History (3 mL) subcutaneous pen (Novolin R FlexPen) hydralazine 50 mg tablet 50 mg PO TID #100 tabs 09/23/23 09/28/23 Rx metoclopramide HCl 5 mg tablet 5 mg PO ACHS #100 tabs 09/23/23 09/28/23 Rx Past Med/Surg History Medical History Anxiety Hypertension Diabetic gastroparesis History of pulmonary embolism 11/2020; unk etiology; was on warfarin (taken off 05/2021) 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 Lor Guadalupe; [facility]) History of nephrolithiasis Personal history of diabetic foot ulcer Diabetic peripheral neuropathy associated with type 1 diabetes mellitus Cyclical vomiting syndrome Chronic pleural effusion PleurX catheter placed 01/24/21--removed 07/2021 Urolithiasis Junctional rhythm 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, with long-term current use of insulin Anemia of chronic disease Kidney stone on right side hx Lumbar radiculopathy AV fistula left upper arm GERD (gastroesophageal reflux disease) Diabetic retinopathy Depression CAD (coronary artery disease) mild, non-obstructive CAD per 10/2018 cardiac cath> [facility] Surgical History History of colonoscopy S/P arteriovenous (AV) fistula creation left arm History of cataract surgery History of esophagogastroduodenoscopy (EGD) (~03/08/20) History of open reduction and internal fixation (ORIF) procedure right hip Nausea and vomiting after administration of anesthetic agent History of lithotripsy History of cardiac cath x2---07/28/23 @ [facility], no stents--per pt done for transplant list and 10/2018 @ [facility] (no stents) History of hip surgery left HIP ARTHROSCOPY H/O shoulder surgery RIGHT History of appendectomy Family History Grandfather Myocardial infarction Grandfather (Maternal) Family history of diabetes mellitus Uncle Myocardial infarction Father Hypertension Mother Kidney stone Other No family history of adverse response to anesthesia Denies family history of Colon cancer Ovarian cancer Prostate cancer Breast cancer Social History Smoking Status: Former smoker Tobacco Type: Smokeless Tobacco (Dip or Chew) Second Hand Exposure: No; Do You Dip or Chew Tobacco: No (quit 2019); Hx Alcohol Use: No Hx Substance Use: No Preferred Language: Occitan Communication Ability: Effective Visual Impairment: No Limitations Hearing Ability: Normal Lead Machinist Required: No Beliefs That Will Affect Care: None marital status: Current Living Situation: Parent Current Living Situation Comment: with rachele parents current occupational status: disabled How many Children do You have: 2 Feels Safe at Home: Yes Childhood Exposure to Second-Hand Smoke: Yes Diet: regular caffeine: Yes Dental Care, Regularly: No Physical Activity Frequency: 1-2 Times per Week Seatbelt Use: always Sunscreen Use: Yes Gender Identity: Male Assistive Devices: Cane and Walker Review of Systems Review of Systems: As per above Physical Exam Physical Exam: Constitutional: well-appearing, no acute distress HEENT: NCAT, no conjunctival injection CV: regular rhythm, no murmur appreciated, extremities well-perfused, no LE edema Resp: CTABL, no wheezes/rales/rhonchi appreciated, no increased work of breathing GI: soft, nondistended, nontender MSK: + erythema/edema right calf/foot with right calf tenderness Skin: warm, dry, no rash appreciated Neuro: alert, oriented, no focal neurologic deficit appreciated Results & Data Results & Data Vital Signs (Past 12 Hours) Vital Signs Temp Pulse Pulse Resp BP Pulse Ox O2 Del Method 09/28/23 00:17 85 16 143/77 H 95 Room Air 09/27/23 22:20 37.8 C H 90 18 96 Room Air Code Status & VTE Plan VTE Prophylaxis Plan VTE Prophylaxis will be ordered: Yes Supervising Physician Co-Signing Physician Notes Attending addendum: I have physically seen this patient, have supervised the medical residents activities, and agree with the H&P unless as otherwise noted. Assessment and Plan: Right lower extremity DVT/history of previous PE- Doppler revealing occlusive thrombus of the posterior tibial vein, peroneal vein Continue heparin drip begun in the ED Hypercoagulable workup previously done at [facility], records requested Daytime team will determine conversion time to oral anticoagulation ESRD on HD/hyponatremia- Sodium 127 Do not produce urine Will be adjusted at dialysis Diabetes mellitus type 1, uncontrolled- Continue Lantus 20 is daily Placed on SSI Resident Activity Tracking Resident Involvement: Resident Care Provided Care Provided: Adult Hospital Medicine (5) Hypertension Hypertension type: unspecified Qualified Code(s): I10 - Essential (primary) hypertension (8) Anemia Anemia type: due to chronic kidney disease Chronic kidney disease stage: on chronic dialysis Qualified Code(s): N18.6 - End stage renal disease; D63.1 - Anemia in chronic kidney disease; Z99.2 - Dependence on renal dialysis
[2023-09-28] MEDS ORDERED: GLUCOSE 10 TAB/TUBE PO PRN (01:52)
[2023-09-28] MEDS ORDERED: GLUCAGON FOR INJ 1 MG VIAL SQ PRN (01:52)
[2023-09-28] MEDS ORDERED: DEXTROSE 50% 50 ML SYRINGE IV PRN (01:52)
[2023-09-28] MEDS ORDERED: LORazepam 0.5 MG TAB PO PRN (01:52)
[2023-09-28] MEDS ORDERED: GLUCOSE 40% GEL 15 GM TUBE PO PRN (01:52)
[2023-09-28] MEDS ORDERED: CARBOHYDRATES FOR HYPOGLYCEMIA PO PRN (01:52)
[2023-09-28] MEDS: ACETAMINOPHEN 1000 MG/100 ML IV IV ONE (04:42)
[2023-09-28] MEDS: ACETAMINOPHEN 1,000 MG/100 ML VIAL IV STA (05:21)
[2023-09-28] MEDS ORDERED: SODIUM CHLORIDE 0.9% 1,000 ML IV PRN (07:17)
[2023-09-28 08:07] LABS: ANTI-Xa, UFH(UnfractionatedHep 0.51 IU/ml (0.3-0.7)
[2023-09-28] MEDS: SERTRALINE HCL 50 MG TABLET PO SCH (08:34)
[2023-09-28] MEDS: carvediloL 12.5 MG TAB PO SCH (08:35)
[2023-09-28] MEDS: PANTOprazole 40 MG TAB PO SCH (08:35)
[2023-09-28] MEDS: ATORVASTATIN 10 MG TAB PO SCH (08:35)
[2023-09-28] MEDS: hydrALAZINE TAB 50 MG TAB PO SCH (08:35)
[2023-09-28] MEDS: SERTRALINE HCL 100 MG TABLET PO SCH (08:35)
[2023-09-28] MEDS: METOCLOPRAMIDE HCL 5 MG TABLET PO SCH (08:36)
[2023-09-28] MEDS: LANTUS PER UNIT CHARGE SQ SCH (08:37)
[2023-09-28] MEDS: INSULIN ASPART PER UNIT CHARGE SC SCH (09:16)
--- NOTE | 2023-09-28 15:44 | Nephrology Consultation ---
Date of Consultation September 28, 2023 Assessment & Plan (1) ESRD (end stage renal disease): ESRD on MWF HD via AVF >HD today 3.75 hours w/ goal 2-2.5L UF and keeping SBP >110 -no heparin on HD -2K bath -next HD on 09/29 or as clinical needs dictate (2) Deep vein thrombosis (DVT) of right lower extremity: on heparin gtt ; team considering whether to start coumadin v DOAC (3) Hypertensive urgency: chronically uncontrolled HTN which is often labile -HD today -cont coreg, hydralazine current doses History of Present Illness Reason for Consultation: ESRD on HD Requesting Physician: Dr Gibson Attending Physician: Belkis Gibson MD History of Present Illness 53 y/o M whom I'm asked to see for dialysis needs was admitted early this AM after presenting with RLE DVT w/ no clear provocation except possibly hospitalization in the past week. PMH includes cyclic vomiting syndrome, type I DM w/ proliferative retinopathy, ESRD on in-center hemodialysis MWF via Left Arm AVF [facility] with me; nonocclusive CAD,GERD, HTN w/ labile BP and autonomic dysfunction, nephrolithiasis, and anemia of chronic disease. He's been hospitalized here multiple times in the past few months for intractable n/v related to gastroparesis/CVS. Past chronic L pleural effusion managed Jan 2021-Jun 2021 w/ pleurex catheter; also has remote hx of PE no longer on AC; hx of Covid 07/2021. He presented to [facility] ER w/ RLE redness/swelling and chills/no F after waking up last evening 2229 to use toilet and noting his R foot "looked like a football:" found to have occlusive DVT in the R posterior tibial vein and peroneal veins. He was started on a heparin gtt. The primary service is working to track down the hypercoagulable w/u done at [facility] as part of w/u for kidney/panc txplt. Also starting coumadin versus eliquis being considered. He is adherent w/ his HD treatments and does not shorten or miss; he does often struggle with excessive IDWG and high phosphorus. Denies sob, cough, orthopnea; denies further chills since arrival or subjective F; no issues w/ abd pain, n/v/dry heaving; stable chronic loose stools; no uncontrolled musculoskeletal pain, no focal numbness/weakness, no confusion; no rash; no chest pain or palpitations. Allergies Allergy/AdvReac Type Severity Reaction Status Date / Time shellfish derived Allergy Severe anaphylaxis Verified 09/28/23 01:05 codeine Allergy Intermediate Hives Verified 09/28/23 01:05 promethazine Allergy Intermediate itchy/hives Verified 09/28/23 01:05 Home Medications Medication Instructions Recorded Confirmed Type acetaminophen 325 mg capsule 650 mg PO Q4H PRN Pain (Scale 09/28/20 09/28/23 History Score 1-3) sertraline 100 mg tablet 100 mg PO QAM 12/29/21 09/28/23 History sertraline 25 mg tablet 25 mg PO QAM 12/29/21 09/28/23 History atorvastatin 10 mg tablet 10 mg PO QAM #90 tabs 08/11/22 09/28/23 Rx ondansetron HCl 4 mg tablet 8 mg (2 x 4 mg) PO Q4 PRN nausea 08/14/22 09/28/23 Rx or vomiting #60 tabs melatonin 1 mg tablet 4 mg PO HS PRN Sleep 09/18/22 09/28/23 History midodrine 5 mg tablet 5 mg PO .COMPLEX 02/19/23 09/28/23 History mirtazapine 7.5 mg tablet 7.5 mg PO HS 02/19/23 09/28/23 History carvedilol 12.5 mg tablet (Coreg) 12.5 mg PO BID #30 tabs 04/08/23 09/28/23 Rx pantoprazole 40 mg tablet,delayed 40 mg PO QAM #90 tabs 04/16/23 09/28/23 Rx release (Protonix) lorazepam 0.5 mg tablet 0.5 mg PO Q8H PRN severe nausea 04/24/23 09/28/23 Rx #30 tabs lanthanum 500 mg chewable tablet 500 mg PO DIRECTED 08/09/23 09/28/23 History insulin glargine 100 unit/mL (3 20 unit subcut QAM 09/12/23 09/28/23 History mL) subcutaneous pen (Basaglar KwikPen U-100 Insulin) insulin regular human 100 unit/mL 0 sliding scale dose subcut TIDM 09/12/23 09/28/23 History (3 mL) subcutaneous pen (Novolin R FlexPen) hydralazine 50 mg tablet 50 mg PO TID #100 tabs 09/23/23 09/28/23 Rx metoclopramide HCl 5 mg tablet 5 mg PO ACHS #100 tabs 09/23/23 09/28/23 Rx Patient History Medical History Anxiety Hypertension Diabetic gastroparesis History of pulmonary embolism 11/2020; unk etiology; was on warfarin (taken off 05/2021) 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 Lor Guadalupe; [facility]) History of nephrolithiasis Personal history of diabetic foot ulcer Diabetic peripheral neuropathy associated with type 1 diabetes mellitus Cyclical vomiting syndrome Chronic pleural effusion PleurX catheter placed 01/24/21--removed 07/2021 Urolithiasis Junctional rhythm 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, with long-term current use of insulin Anemia of chronic disease Kidney stone on right side hx Lumbar radiculopathy AV fistula left upper arm GERD (gastroesophageal reflux disease) Diabetic retinopathy Depression CAD (coronary artery disease) mild, non-obstructive CAD per 10/2018 cardiac cath> [facility] Surgical History History of colonoscopy S/P arteriovenous (AV) fistula creation left arm History of cataract surgery History of esophagogastroduodenoscopy (EGD) (~03/08/20) History of open reduction and internal fixation (ORIF) procedure right hip Nausea and vomiting after administration of anesthetic agent History of lithotripsy History of cardiac cath x2---07/28/23 @ [facility], no stents--per pt done for transplant list and 10/2018 @ [facility] (no stents) History of hip surgery left HIP ARTHROSCOPY H/O shoulder surgery RIGHT History of appendectomy Family History Grandfather Myocardial infarction Grandfather (Maternal) Family history of diabetes mellitus Uncle Myocardial infarction Father Hypertension Mother Kidney stone Other No family history of adverse response to anesthesia Denies family history of Colon cancer Ovarian cancer Prostate cancer Breast cancer Social History Smoking Status: Former smoker Tobacco Type: Smokeless Tobacco (Dip or Chew) Second Hand Exposure: No; Do You Dip or Chew Tobacco: No (quit 2019); Hx Alcohol Use: No Hx Substance Use: No Preferred Language: Taiwanese Communication Ability: Effective Visual Impairment: No Limitations Hearing Ability: Normal Rn Appeals Required: No Beliefs That Will Affect Care: None marital status: Current Living Situation: Parent Current Living Situation Comment: with rachele parents current occupational status: disabled How many Children do You have: 2 Feels Safe at Home: Yes Safety Concerns: Feels Safe At This Time Childhood Exposure to Second-Hand Smoke: Yes Diet: regular caffeine: Yes Dental Care, Regularly: No Physical Activity Frequency: 1-2 Times per Week Seatbelt Use: always Sunscreen Use: Yes Gender Identity: Male Assistive Devices: Cane and Walker Assistive Devices Comment: Occasionally uses a cane or walker. Review of Systems 2 Review of Systems: All systems reviewed & are unremarkable except as noted in HPI & below Physical Exam 2 Constitutional: well developed, well nourished, cooperative (on RA) and comfortable; no acute distress Eyes: EOM intact bilaterally ENMT: Ears: no external ear abnormality Nose: no external nose abnormality Mouth: + dry oral mucous membranes Neck: no nuchal rigidity Respiratory: normal respiratory effort Auscultation: + diminished lung sounds Cardiovascular: Rate/Rhythm: regular rate and regular rhythm Extremities: + AV fistula (+t/b); no edema (except R pedal/ankle) Gastrointestinal (Abdomen): Inspection/Auscultation: normal bowel sounds P ercussion/Palpation: abdomen soft; abdomen nontender Musculoskeletal: Extremities: strength 5/5 throughout Skin: no rashes, warm and dry Neurologic: spicer, fluent speech, no tremor Psychiatric: Orientation: alert and oriented x 3 Results & Data Vital Signs (Past 12 Hours) Vital Signs Temp Pulse Pulse Pulse Resp BP BP 09/28/23 15:00 68 153/63 H 09/28/23 14:30 66 131/58 L 09/28/23 14:00 67 149/60 H 09/28/23 13:52 66 09/28/23 13:46 37.0 C 67 04/22/24 13:45 36.6 C 97 H 18 136/69 09/28/23 09:00 72 15 09/28/23 08:00 176/80 H 09/28/23 08:00 73 17 09/28/23 07:29 74 09/28/23 07:28 74 18 09/28/23 06:25 73 18 154/62 H Pulse Ox O2 Del Method O2 Flow Rate 09/28/23 15:00 09/28/23 14:30 09/28/23 14:00 09/28/23 13:52 09/28/23 13:46 09/28/23 13:45 92 Nasal Cannula 3 09/28/23 09:00 09/28/23 08:00 09/28/23 08:00 100 09/28/23 07:29 09/28/23 07:28 98 09/28/23 06:25 95 Room Air Laboratory Results 09/27/23 22:45 09/27/23 22:45 Diagnostic Findings venous doppler reviewed
--- NOTE | 2023-09-28 16:11 | Dialysis Progress Note ---
Date of Service September 28, 2023 Assessment & Plan (1) ESRD (end stage renal disease): Plan: ESRD on MWF HD via AVF >HD today 3.75 hours w/ goal 2-2.5L UF and keeping SBP >110 >> he is not quite 1/2 way through tx and w/ severely elevated BP (last SBP 170s) > will increase UF target to 3.5 as tolerated -no heparin on HD -2K bath -next HD on 09/29 or as clinical needs dictate -no FLOR or venofer indicated >does not have fosrenol w/ him but family will bring it in > updated correct dose in orders >he also gets phoslo w/ snack in addition to fosrenol and so ordered -started 1.2 L FR -renavite, D3 OP dose not readily found on formulary and defer for now (2) Deep vein thrombosis (DVT) of right lower extremity: Plan: on heparin gtt ; team considering whether to start coumadin v DOAC (3) Hypertensive urgency: Plan: chronically uncontrolled HTN which is often labile >> see plan above for more aggressive fluid removal -HD today -cont coreg, hydralazine current doses Admission and Anticipated Discharge Date Admission Date: September 28, 2023 Subjective seen on HD which he is tolerating well > no cramps, no n/v; no foot pain; back to RA now Review of Systems Review of Systems: All systems reviewed & are unremarkable except as noted in Subjective Physical Exam Constitutional: well developed, well nourished, cooperative (on RA) and comfortable; no acute distress Eyes: EOM intact bilaterally ENMT: Ears: no external ear abnormality Nose: no external nose abnormality Mouth: + dry oral mucous membranes Neck: no nuchal rigidity Respiratory: normal respiratory effort Auscultation: + diminished lung sounds Cardiovascular: Rate/Rhythm: regular rate and regular rhythm Extremities: + AV fistula (+t/b); no edema (except R pedal/ankle) Gastrointestinal (Abdomen): Inspection/Auscultation: normal bowel sounds Percussion/Palpation: abdomen soft; abdomen nontender Musculoskeletal: Extremities: strength 5/5 throughout Skin: no rashes, warm and dry Psychiatric: Orientation: alert and oriented x 3 Results & Data Vital Signs (Past 12 Hours) Vital Signs Temp Pulse Pulse Pulse Resp BP BP 09/28/23 15:30 70 171/63 H 09/28/23 15:00 66 09/28/23 15:00 68 153/63 H 09/28/23 14:30 66 131/58 L 09/28/23 14:00 67 149/60 H 09/28/23 13:52 66 09/28/23 13:46 37.0 C 67 09/28/23 13:45 36.6 C 97 H 18 136/69 09/28/23 09:00 72 15 09/28/23 08:00 176/80 H 09/28/23 08:00 73 17 09/28/23 07:29 74 09/28/23 07:28 74 18 09/28/23 06:25 73 18 154/62 H Pulse Ox O2 Del Method O2 Flow Rate 09/28/23 15:30 09/28/23 15:00 09/28/23 15:00 09/28/23 14:30 09/28/23 14:00 09/28/23 13:52 09/28/23 13:46 09/28/23 13:45 92 Nasal Cannula 3 09/28/23 09:00 09/28/23 08:00 09/28/23 08:00 100 09/28/23 07:29 09/28/23 07:28 98 09/28/23 06:25 95 Room Air Laboratory Results none new
[2023-09-28] MEDS ORDERED: CALCIUM ACETATE 667 MG CAP/TAB PO PRN (16:30)
--- NOTE | 2023-09-28 17:05 | Communication Note ---
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 R calf DVT - currently on heparin drip. options are apixaban or warfarin. I called his transplant clinic where he is listed because he says they [facility]iam hypercoagulability labs ([place], coordinator Klaudia [phone]), left message. If no APLA could be on trial of apixaban. He has gastroparesis and frequent admissions for vomiting but says he usually can keep down his meds without problem. Discussed with [facility] ships or barges loader - either is ok. Gave 10 mg dose of warfarin x 1 tonight to get started in case he has to bridge onto warfarin. DVT could have been considered provoked because of hospitalization last week, however this is his second VTE. So could argue needs retirement anticoagulation. On oxygen currently - not sure if he's actually hypoxic, was not on O2 through the whole ED boarding stage. Check CXR. No CP/dyspnea. Consider CTA but unlikely to chart changer. Type 1 DM - insulins ordered
[2023-09-28] MEDS: WARFARIN SOD 10 MG TAB PO ONE (18:06)
[2023-09-28] MEDS: MIRTAZAPINE TAB 15 MG TAB PO SCH (21:07)
[2023-09-29] MEDS: ACETAMINOPHEN 500 MG TAB PO PRN (00:09)
[2023-09-29 06:37] LABS: Hemoglobin 9.6 g/dl (14.0-18.0); Mean Corpuscular Hemoglobin 32.8 pg (25.0-34.0); Mean Corpuscular Volume 102.4 fL (80.0-100.0); Mean Platelet Volume 8.8 fL (9.4-12.4); Platelet Count 339 K/uL (130-400); RDW Standard Deviation 52.2 fL (36.4-46.3); Red Blood Count 2.93 M/uL (4.70-6.10); White Blood Count 7.42 K/ul (4.8-10.8)
--- NOTE | 2023-09-29 07:06 | XRay Report ---
XR chest 1V portable HISTORY: hypoxia COMPARISON: Chest 09/19/2023. FINDINGS: No pneumothorax. No pleural effusions. The cardiac silhouette is normal in size. No evidenc e for pulmonary edema. No acute fractures. The lungs are clear. Right basilar nodular density is cons istent with a nipple shadow. IMPRESSION: No acute process. ACT 112: Negative or not required by law. Electronically signed by: Cristiano Brown M.D. 09/29/2023 7:05 AM
[2023-09-29 07:10] LABS: BUN Creatinine Ratio 5.5 (10-20); Calcium 8.3 mg/dl (8.6-10.3); Creatinine Clr Calc Pharmacy 15.4 ml/min; Est GFR (African American) 13.3 ml/min; Est GFR (Non-African American) 11.4 ml/min; Magnesium 2.1 mg/dl (1.7-2.4); Potassium 4.1 mmol/L (3.5-5.1)
[2023-09-29 07:23] LABS: ANTI-Xa, UFH(UnfractionatedHep 0.21 IU/ml (0.3-0.7); Prothrombin Time 10.9 Seconds (9.0-12.0)
[2023-09-29 15:21] LABS: ANTI-Xa, UFH(UnfractionatedHep 0.17 IU/ml (0.3-0.7)
[2023-09-29] MEDS: HEPARIN SOD (PORCINE) 1000 UNIT/ML IV ONE (16:15)
[2023-09-29] MEDS: INSULIN HUMAN REGULAR SC SCH (18:10)
--- NOTE | 2023-09-29 19:34 | Hospitalist Progress Note ---
Date of Service September 29, 2023 Assessment & Plan (1) Deep vein thrombosis (DVT) of right lower extremity: Plan: Occlusive DVT - posterior tibial vein and peroneal vein. Etiology - immobility? Patient reports having fallen in early September and his ambulation since then has been much more limited than typical. Further, he was hospitalized 09/20 to 09/22 and during that brief stay his med records show he refused heparin SC for DVT proph multiple times. Additionally, he had other brief hospital stays in August 2023. His ESRD could be contributing to increased DVT risk as well. Large hypercoagulable w/u done at [facility] in August in preparation for going on kidney/pancreas transplant list was fully negative (see subjective portion of note). Finally, he did have a PE event in 2020 - hospitalized at [facility] for such; treated with coumadin at that time. Plan - Continue heparin drip. He is a very poor coumadin candidate due to very inconsistent eating habits, gastroparesis/cyclic vomiting (frequent emesis), etc. Although DOACs have not been studied heavily in the ESRD population the limited data we do have suggests that DOACs do tend to be effective and have less bleeding risk than coumadin. To than end will reach out to his transplant team tomorrow at [facility] and ask if Martin is acceptable for Rx for his DVTs. If not then will have to use coumadin. 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 Of note - no clinical evidence to suggest concomitant PEs. (2) Pain of right midfoot: Plan: Certainly some of the pain could be due to acute DVT but the pain is quite focal over the mid-foot. Appearance & exam are more suggestive of mid-foot synovitis from gout or pseudogout. He has had gout in the past. Will check x-rays, r/o CPPD changes. Check uric acid level am. Consider low-dose prednisone (10mg) for 5 days if inflammatory arthropathy is suspected. re-eval tomorrow. (3) ESRD (end stage renal disease): Plan: Appreciate [facility] Nephrology assistance. HD schedule - M/W/F. Volume status acceptable today. Electrolytes acceptable today. Cont calcium acetate. (4) Acute hyponatremia: Plan: Much of the low Na today is "pseudo" hyponatremia from his markedly elevated glucose. Sodium levels were normal 1 week ago. BMP am. Correct high sugars. (5) Hypertension: Plan: Cont usual meds from home including hydralazine + coreg. (6) Diabetic gastroparesis: Plan: Cont reglan 5mg ac/hs. Ativan prn. Zofran prn. QTc is about 500msec - chronic & stable. 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, with long- term current use of insulin: Plan: a1c 8.4% early August 2023 defer recheck cont lantus patient states 2 months ago was switched from novolog to novolin-R by his DM pro vider at DM clinic I confirmed such in his records I spoke with pharmacy - will make this change; carb ratio 1:15; CF 40 give 30 min prior to meals (9) Cardiomyopathy: Plan: EF 50-55% in 02/2023 EF had improved in comparison to 2021 echo remains on coreg compensated from volume standpoint (10) Prolonged QT interval: Plan: QTc is about 500-510msec Looking back at numerous EKGs from now to 2022 this is about baseline reglan, zofran, etc likely all contributing the benefits of his reglan for his severe gastroparesis likely outweigh the small risk of arrhythmia at a chronic QTc of 500msec monitor closely on telemetry no h/o torsades or other severe ventricular based arrhythmia Plan PT eval to ensure he is walking safely in light of his fall earlier this month and his right foot pain home tomorrow? Admission and Anticipated Discharge Date Admission Date: September 28, 2023 Subjective tele overnight wnl patient resting comfortably in bed during the visit only complaint is that of right foot pain that started acutely Thursday pm without warning still painful, but improving has had gout in the past denies any injury patient states that 2-3 weeks ago he had a fall and since that fall has been spending more time sedentary no recent travel no family h/o VTE patient had battery of blood tests in August at [facility] in preparation for going on transplant list (for kidney/pancreas) we received those labs - large hypercoagulable w/u COMPLETELY NEGATIVE including protein C, protein S, factor 5 Leiden, prothrombin gene mutation, APS, lupus anticoagulant, etc Review of Systems Review of Systems: gen - no fevers or chills; appetite is about baseline today HENT - no URI symptoms pulm - no cough, no dyspnea GI - no abd pain musculo - ongoing R foot pain; hurts to weight bear Physical Exam Physical Exam: gen - NAD, comfortable appearing mouth - MMM neck - no JVD heart - RRR, s1 s2, 1/6 GOKUL lungs - CTA b/l abd - soft NT ND BS+ ext - focal edema distal right donovan and right foot; no edema on left; pulses b/l feet 2+ musculo - mid-foot synovitis right foot with tenderness and warmth to palpation psych - a/o x 3 Results & Data Results & Data Vital Signs (Past 12 Hours) Vital Signs Temp Pulse Pulse Pulse Resp BP Pulse Ox 09/29/23 15:50 37.0 C 72 18 113/65 97 09/29/23 14:47 68 09/29/23 13:11 68 93/52 L 09/29/23 11:11 36.6 C 70 12 120/55 L 96 O2 Del Method 09/29/23 15:50 Room Air 09/29/23 14:47 09/29/23 13:11 09/29/23 11:11 Room Air Laboratory Results Laboratory Results - last 24 hr 09/28/23 09/28/23 09/29/23 20:44 22:34 06:11 WBC 7.42 RBC 2.93 L Hgb 9.6 L Hct 30.0 L MCV 102.4 H MCH 32.8 MCHC 32.0 RDW Std Deviation 52.2 H RDW Coeff of Kami 14.0 Plt Count 339 MPV 8.8 L PT 10.9 INR 1.0 Heparin Anti-Xa, Unfract 0.20 L 0.21 L Sodium 128 L Potassium 4.1 Chloride 93 L Carbon Dioxide 26 Anion Gap 9 BUN 29 H D Creatinine 5.28 H* D Est Cr Clr Drug Dosing 15.4 Est GFR ( Amer) 13.3 Est GFR (Non-Af Amer) 11.4 BUN/Creatinine Ratio 5.5 L Glucose 406 H* POC Glucose 166 H Calcium 8.3 L Magnesium 2.1 09/29/23 09/29/23 09/29/23 07:56 11:48 14:47 WBC RBC Hgb Hct MCV MCH MCHC RDW Std Deviation RDW Coeff of Kami Plt Count MPV PT INR Heparin Anti-Xa, Unfract 0.17 L Sodium Potassium Chloride Carbon Dioxide Anion Gap BUN Creatinine Est Cr Clr Drug Dosing Est GFR ( Amer) Est GFR (Non-Af Amer) BUN/Creatinine Ratio Glucose POC Glucose 338 H* 365 H* Calcium Magnesium 09/29/23 16:56 WBC RBC Hgb Hct MCV MCH MCHC RDW Std Deviation RDW Coeff of Kami Plt Count MPV PT INR Heparin Anti-Xa, Unfract Sodium Potassium Chloride Carbon Dioxide Anion Gap BUN Creatinine Est Cr Clr Drug Dosing Est GFR ( Amer) Est GFR (Non-Af Amer) BUN/Creatinine Ratio Glucose POC Glucose 122 H Calcium Magnesium PG Care Time/CCT Total # of Minutes Spent Total Time Spent with Patient: Total time spent is greater than 50% in coordination of care (as documented) at patient's floor/unit and/or counseling patient: Coding Level of Care Code 76871 SUB INP/OBS CARE 3/50MIN Diagnoses Deep vein thrombosis (DVT) of right lower extremity I82.401 Pain of right midfoot M79.671 ESRD (end stage renal disease) N18.6 Acute hyponatremia E87.1 Hypertension I10 Hypertension type: unspecified Diabetic gastroparesis E11.43; K31.84 History of pulmonary embolism Z86.711 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
--- NOTE | 2023-09-30 07:09 | XRay Report ---
XR foot RT 2V HISTORY: 53 years-old Male mid-foot pain; CPPD? fracture? Acute right foot pain without reported tra rhiannon COMPARISON: None TECHNIQUE: 2 views of the right foot FINDINGS: Demineralized appearance of the bones. Arterial calcifications. Multifocal osteoarthritis which is mo stly mild. Moderate diffuse soft tissue swelling. Acute intra-articular mildly displaced fractures are noted involving the bases of the first through f ourth metatarsals. There is mild offset at the Lisfranc articulation. Acute nondisplaced intra-articu lar fracture noted within the base of the second proximal phalanx. IMPRESSION: 1. Acute intra-articular mildly displaced fractures are noted within the bases of the first through f ourth metatarsals with possible associated midfoot malalignment/Lisfranc ligamentous injury. Correlat ion with follow-up CT recommended. 2. Acute nondisplaced intra-articular second proximal phalangeal fracture. ACT 112: Negative or not required by law. The above report was generated using voice recognition software. It may contain grammatical, syntax o r spelling errors. Electronically signed by: Justus Martinez M.D. 09/30/2023 7:08 AM
[2023-09-30] MEDS ORDERED: SODIUM CHLORIDE 0.9% 1,000 ML IV PRN (07:53)
[2023-09-30 08:38] LABS: Basophils # (auto) 0.06 K/uL (0.00-0.20); Basophils % (auto) 0.6 %; Eosinophils # (auto) 0.49 K/uL (0.00-0.50); Hematocrit (blood only) 30.4 % (42.0-52.0); Hemoglobin 9.7 g/dl (14.0-18.0); Immature Granulocytes # (auto) 0.08 K/uL (0.01-0.20); Immature Granulocytes % (auto) 0.8 %; Lymphocytes # (auto) 2.05 K/uL (1.20-3.40); Lymphocytes % (auto) 20.9 %; Mean Corpuscular Hemoglobin 32.6 pg (25.0-34.0); Mean Corpuscular Hgb Conc 31.9 g/dL (32.0-36.0); Monocytes # (auto) 1.25 K/uL (0.11-0.59); Monocytes % (auto) 12.8 %; Neutrophils # (auto) 5.86 K/uL (1.40-6.50); Neutrophils % (auto) 59.9 %; Platelet Count 382 K/uL (130-400); RDW Coefficient of Variation 13.9 % (11.5-14.5); RDW Standard Deviation 51.2 fL (36.4-46.3); Red Blood Count 2.98 M/uL (4.70-6.10); White Blood Count 9.79 K/ul (4.8-10.8)
[2023-09-30 08:59] LABS: ANTI-Xa, UFH(UnfractionatedHep 0.15 IU/ml (0.3-0.7)
[2023-09-30 09:16] LABS: BUN Creatinine Ratio 5.4 (10-20); Creatinine Clr Calc Pharmacy 10.4 ml/min; Est GFR (African American) 8.3 ml/min; Est GFR (Non-African American) 7.2 ml/min; Potassium 4.1 mmol/L (3.5-5.1)
[2023-09-30] MEDS: HEPARIN SOD (PORCINE) 1000 UNIT/ML IV STA (09:31)
--- NOTE | 2023-09-30 11:16 | CT Scan Report ---
CT foot RT wo con CLINICAL HISTORY: 1-4 metatarsal fx's; ?lisfranc injury COMPARISON STUDY: Right foot radiographs September 29, 2023. TECHNIQUE: Axial images of the right foot were obtained without IV contrast. Sagittal and coronal rec onstructions were viewed. Automated exposure control was utilized for the study. A dose lowering jeimy hnique was utilized adhering to the principles of ALARA. FINDINGS: Please note the right ankle CT will be reported separately. Extensive vascular calcificatio n is incidentally noted. There is no soft tissue gas. Extensive dorsal midfoot soft tissue swelling i s noted. There are acute to subacute comminuted displaced fractures of the bases of the first, second and third metatarsals. Dorsal displacement of the distal fragments is present. The first metatarsal fracture is impacted. There may be minimal callus formation. Tarsometatarsal joints are aligned. Gan kaden, the fracture of the second metatarsal is displaced and therefore underlying Lisfranc ligament te ar may be present although not directly visualized by CT. Minimally displaced fracture of the lateral cuboid is present. There are nondisplaced fractures of the medial and lateral cuneiforms. There is a n acute appearing nondisplaced fracture within the base of the proximal phalanx of the right second t oe. Subtalar and tibiotalar joints are intact. There is no calcaneal, talar or navicular fracture. IMPRESSION: 1. Numerous acute to subacute displaced midfoot fractures, including fractures of the bases of the fi rst through fourth metatarsals and the cuboid and medial and lateral cuneiforms. Tarsometatarsal join ts aligned however the fracture of the second metatarsal is displaced and therefore, the findings are suspicious for underlying Lisfranc ligament tear although not directly visualized by CT. Orthopedic consultation is recommended. Extensive edema. 2. Acute nondisplaced fracture within the base of the proximal phalanx of the right second toe. ACT 112: Negative or not required by law. Electronically signed by: Gabino Cool M.D. 09/30/2023 11:14 AM
--- NOTE | 2023-09-30 11:35 | CT Scan Report ---
CT ankle RT wo con HISTORY: 53 years-old Male metatarsal fx's; ?lisfranc injury . Right foot and ankle pain COMPARISON: Right foot CT of same day TECHNIQUE: Multiple axial CT images of the right ankle were obtained without IV contrast. A dose lowe ring technique was used consistent with the principals of АННА. FINDINGS: Arterial calcifications. Limited evaluation of the ligaments and tendons by CT technique. After the m usculature with [id number] diffuse subcutaneous edema. No drainable fluid collections. The ankl e mortise is maintained. No acute fracture, dislocation or osteochondral defect of the ankle or hindf oot. Partially imaged acute versus subacute forefoot fractures. IMPRESSION: 1. No acute fracture or dislocation identified within the ankle. 2. Please refer to the CT right foot of same day for discussion of the forefoot fractures. 3. Nonspecific mild to moderate subcutaneous edema. ACT 112: Negative or not required by law. The above report was generated using voice recognition software. It may contain grammatical, syntax o r spelling errors. Electronically signed by: Justus Martinez M.D. 09/30/2023 11:33 AM
[2023-09-30] MEDS ORDERED: LANTHANUM CARBONATE 500 MG PO PRN (11:44)
--- NOTE | 2023-09-30 12:37 | Dialysis Progress Note ---
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) -no heparin on HD since he's on gtt -2K bath -next HD on 10/01 or as clinical needs dictate -no FLOR or venofer indicated >does not have fosrenol w/ him but family brought it in > has not had dose of this or phoslo w/ snack yet -cont 1.2 L FR -renavite, D3 OP dose not readily found on formulary and defer for now/can resume at d/c (2) Deep vein thrombosis (DVT) of right lower extremity: Plan: on heparin gtt ; team considering whether to start coumadin v DOAC (3) Hypertensive urgency: Plan: chronically uncontrolled HTN which is often labile >> see plan above for more aggressive fluid removal -HD today -cont coreg, hydralazine current doses Admission and Anticipated Discharge Date Admission Date: September 28, 2023 Subjective seen on dialysis. no complaints. on heparin gtt while OP AC finalized. R midfoot pain being evaluated for gout/pseudogout. no sob, no cramping, no bleeding concerns; cyclical n/v for the moment quiet Review of Systems 2 Review of Systems: All systems reviewed & are unremarkable except as noted in Subjective Physical Exam 2 Constitutional: well developed, well nourished, cooperative (on RA lying flat) and comfortable; no acute distress Eyes: EOM intact bilaterally ENMT: Ears: no external ear abnormality Nose: no external nose abnormality Mouth: + dry oral mucous membranes Neck: no nuchal rigidity Respiratory: normal respiratory effort Auscultation: + diminished lung sounds Cardiovascular: Rate/Rhythm: regular rate and regular rhythm Extremities: + AV fistula (+t/b); no edema (except R pedal/ankle) Gastrointestinal (Abdomen): Inspection/Auscultation: normal bowel sounds P ercussion/Palpation: abdomen soft; abdomen nontender Musculoskeletal: Extremities: strength 5/5 throughout Skin: no rashes, warm and dry Psychiatric: Orientation: alert and oriented x 3 Results & Data Vital Signs (Past 12 Hours) Vital Signs Temp Pulse Pulse Pulse Resp BP BP 09/30/23 12:00 70 139/55 L 09/30/23 11:30 71 133/59 L 09/30/23 11:04 72 124/57 L 09/30/23 11:00 36.9 C 73 09/30/23 07:57 36.7 C 74 18 153/68 H 09/30/23 07:07 72 09/30/23 04:39 36.5 C 73 20 153/61 H Pulse Ox O2 Del Method 09/30/23 12:00 09/30/23 11:30 09/30/23 11:04 09/30/23 11:00 09/30/23 07:57 94 Room Air 09/30/23 07:07 09/30/23 04:39 95 Room Air Laboratory Results 09/30/23 07:56 09/30/23 07:56
[2023-09-30] MEDS: LANTHANUM CARBONATE 500 MG PO SCH (12:40)
[2023-09-30 16:49] LABS: ANTI-Xa, UFH(UnfractionatedHep 0.45 IU/ml (0.3-0.7)
--- NOTE | 2023-09-30 17:24 | Orthopedic Consultation ---
Date of Consultation September 30, 2023 Assessment & Plan (1) Metatarsal fracture: Patient was walking on his foot for 2 weeks and was unaware of the fracture so likely has significant neuropathy and this is a Charcot type variant fracture. This could be treated surgically with fusion or nonsurgically with possibly total contact casting. Dr. Luevano has treated him for other issues and is a foot and ankle specialist that can manage this quite well. Will get him a walking boot for now and have him just put weight on his heel not on his forefoot and he does not need to wear this when he is in bed. He can have ice to his foot. Foot can be elevated to help with the swelling. Walking boot when he gets out of bed. Can follow-up with Dr. Luevano as an outpatient. (2) Neuropathy of right foot: History of Present Illness Reason for Consultation: Right foot swelling Attending Physician: Guevara Townsend MD History of Present Illness 53-year-old male with renal disease and waiting for kidney transplant on dialysis who said he had a fall possibly 2 weeks ago but really did not have any foot pain and was noted to have swelling of his right foot and had x-rays here at the hospital. Does have a review of systems for tingling in his feet and poor sensation so he likely has some neuropathy in his feet. Allergies Allergy/AdvReac Type Severity Reaction Status Date / Time shellfish derived Allergy Severe anaphylaxis Verified 09/28/23 01:05 codeine Allergy Intermediate Hives Verified 09/28/23 01:05 promethazine Allergy Intermediate itchy/hives Verified 09/28/23 01:05 Home Medications Medication Instructions Recorded Confirmed Type acetaminophen 325 mg capsule 650 mg PO Q4H PRN Pain (Scale 09/28/20 09/28/23 History Score 1-3) sertraline 100 mg tablet 100 mg PO QAM 12/29/21 09/28/23 History sertraline 25 mg tablet 25 mg PO QAM 12/29/21 09/28/23 History atorvastatin 10 mg tablet 10 mg PO QAM #90 tabs 08/11/22 09/28/23 Rx ondansetron HCl 4 mg tablet 8 mg (2 x 4 mg) PO Q4 PRN nausea 08/14/22 09/28/23 Rx or vomiting #60 tabs melatonin 1 mg tablet 4 mg PO HS PRN Sleep 09/18/22 09/28/23 History midodrine 5 mg tablet 5 mg PO .COMPLEX 02/19/23 09/28/23 History mirtazapine 7.5 mg tablet 7.5 mg PO HS 02/19/23 09/28/23 History carvedilol 12.5 mg tablet (Coreg) 12.5 mg PO BID #30 tabs 04/08/23 09/28/23 Rx pantoprazole 40 mg tablet,delayed 40 mg PO QAM #90 tabs 04/16/23 09/28/23 Rx release (Protonix) lorazepam 0.5 mg tablet 0.5 mg PO Q8H PRN severe nausea 04/24/23 09/28/23 Rx #30 tabs lanthanum 500 mg chewable tablet 500 mg PO DIRECTED 08/09/23 09/28/23 History insulin glargine 100 unit/mL (3 20 unit subcut QAM 09/12/23 09/28/23 History mL) subcutaneous pen (Basaglar KwikPen U-100 Insulin) insulin regular human 100 unit/mL 0 sliding scale dose subcut TIDM 09/12/23 09/28/23 History (3 mL) subcutaneous pen (Novolin R FlexPen) hydralazine 50 mg tablet 50 mg PO TID #100 tabs 09/23/23 09/28/23 Rx metoclopramide HCl 5 mg tablet 5 mg PO ACHS #100 tabs 09/23/23 09/28/23 Rx Patient History Medical History Anxiety Hypertension Diabetic gastroparesis History of pulmonary embolism 11/2020; unk etiology; was on warfarin (taken off 05/2021) 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 Lor Guadalupe; [facility]) History of nephrolithiasis Personal history of diabetic foot ulcer Diabetic peripheral neuropathy associated with type 1 diabetes mellitus Cyclical vomiting syndrome Chronic pleural effusion PleurX catheter placed 01/24/21--removed 07/2021 Urolithiasis Junctional rhythm 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, with long-term current use of insulin Anemia of chronic disease Kidney stone on right side hx Lumbar radiculopathy AV fistula left upper arm GERD (gastroesophageal reflux disease) Diabetic retinopathy Depression CAD (coronary artery disease) mild, non-obstructive CAD per 10/2018 cardiac cath> [facility] Surgical History History of colonoscopy S/P arteriovenous (AV) fistula creation left arm History of cataract surgery History of esophagogastroduodenoscopy (EGD) (~03/08/20) History of open reduction and internal fixation (ORIF) procedure right hip Nausea and vomiting after administration of anesthetic agent History of lithotripsy History of cardiac cath x2---07/28/23 @ [facility], no stents--per pt done for transplant list and 10/2018 @ [facility] (no stents) History of hip surgery left HIP ARTHROSCOPY H/O shoulder surgery RIGHT History of appendectomy Family History Grandfather Myocardial infarction Grandfather (Maternal) Family history of diabetes mellitus Uncle Myocardial infarction Father Hypertension Mother Kidney stone Other No family history of adverse response to anesthesia Denies family history of Colon cancer Ovarian cancer Prostate cancer Breast cancer Social History Smoking Status: Former smoker Tobacco Type: Smokeless Tobacco (Dip or Chew) Second Hand Exposure: No; Do You Dip or Chew Tobacco: No (quit 2018); Hx Alcohol Use: No Hx Substance Use: No Preferred Language: Greenlandic Communication Ability: Effective Visual Impairment: No Limitations Hearing Ability: Normal Top Stop Attacher Required: No Beliefs That Will Affect Care: None marital status: Current Living Situation: Parent Current Living Situation Comment: with alycia and babita parents current occupational status: disabled How many Children do You have: 2 Feels Safe at Home: Yes Childhood Exposure to Second-Hand Smoke: Yes Diet: regular caffeine: Yes Dental Care, Regularly: No Physical Activity Frequency: 1-2 Times per Week Seatbelt Use: always Sunscreen Use: Yes Gender Identity: Male Assistive Devices: Cane and Walker Review of Systems Review of Systems: No fever chills or signs of infection Physical Exam Physical Exam: Right foot with swelling of the midfoot area slight pink discoloration. He can move his ankle up and down well he can get his ankle to the plantigrade position. He has stocking glove decreased sensation consistent with neuropathy. Capillary refills normal. Results & Data Vital Signs (Past 12 Hours) Vital Signs Temp Pulse Pulse Pulse Resp BP BP 09/30/23 15:16 37.1 C 78 20 153/54 H 09/30/23 14:50 36.8 C 73 149/47 H 09/30/23 14:20 71 136/54 L 09/30/23 14:13 71 113/55 L 09/30/23 14:00 70 86/38 L 09/30/23 13:58 70 09/30/23 13:30 72 115/42 L 09/30/23 13:00 70 119/63 09/30/23 12:30 69 158/89 H 09/30/23 12:00 70 139/55 L 09/30/23 11:30 71 133/59 L 09/30/23 11:04 72 124/57 L 09/30/23 11:00 36.9 C 73 09/30/23 07:57 36.7 C 74 18 153/68 H 09/30/23 07:07 72 Pulse Ox O2 Del Method 09/30/23 15:16 98 Room Air 09/30/23 14:50 09/30/23 14:20 09/30/23 14:13 09/30/23 14:00 09/30/23 13:58 09/30/23 13:30 09/30/23 13:00 09/30/23 12:30 09/30/23 12:00 09/30/23 11:30 09/30/23 11:04 09/30/23 11:00 09/30/23 07:57 94 Room Air 09/30/23 07:07 Diagnostic Findings X-rays and CT scan demonstrate a fracture and area of Lisfranc's metatarsal 123 and 4. First metatarsal severely comminuted and compressed and second metatarsals dorsally displaced and third and fourth are laterally translated slightly however the fourth and fifth joints are anatomically aligned.
--- NOTE | 2023-09-30 20:40 | Hospitalist Progress Note ---
Date of Service September 30, 2023 Assessment & Plan (1) Metatarsal fracture: Plan: multiple - right foot 1st-4th metatarsals tiny 2nd toe fracture ?Lisfranc ligamentous injury as well ortho consult placed; recs appreciated plan - walking boot with ambulation (partial weight-bearing advised), referral to Dr Rodríguez Luevano post-d/c appreciate ortho consultation no surgery planned at this time (2) Deep vein thrombosis (DVT) of right lower extremity: Plan: Occlusive DVT - posterior tibial vein and peroneal vein. Etiology - immobility? Patient reports having fallen in early September and his ambulation since then has been much more limited than typical. Further, he was hospitalized 09/20 to 09/22 and during that brief stay his med records show he refused heparin SC for DVT proph multiple times. Additionally, he had other brief hospital stays in August 2023. His ESRD could be contributing to increased DVT risk as well. Large hypercoagulable w/u done at [facility] in August in p reparation for going on kidney/pancreas transplant list was fully negative (see subjective portion of note). Finally, he did have a PE event in 2020 - hospitalized at [facility] for such; treated with coumadin at that time. Plan - Continue heparin drip. He is a very poor coumadin candidate due to very inconsistent eating habits, gastroparesis/cyclic vomiting (frequent emesis), etc. Although DOACs have not been studied heavily in the ESRD population the limited data we do have suggests that DOACs do tend to be effective and have less bleeding risk than coumadin. To than end will reach out to his transplant team tomorrow at [facility] and ask if Martin is acceptable for Rx for his DVTs. If not then will have to use coumadin. 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 Of note - no clinical evidence to suggest concomitant PEs. (3) Pain of right midfoot: Plan: see #1 above (4) ESRD (end stage renal disease): Plan: Appreciate [facility] assistance. HD schedule - M/W/F. Had HD today w/o incident. (5) Acute hyponatremia: Plan: 2nd to "pseudo" hyponatremia from his markedly elevated glucose and partially his ESRD. BMP am. Glucose control has improved. (6) Hypertension: Plan: Cont usual meds from home including hydralazine + coreg. (7) Diabetic gastroparesis: Plan: Cont reglan 5mg ac/hs. Ativan prn. Zofran prn. QTc is about 500msec - chronic & stable. 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, with long- term current use of insulin: Plan: a1c 8.4% early August 2023 defer recheck cont lantus patient states 2 months ago was switched from novolog to novolin-R by his DM provider at DM clinic I confirmed such in his records use parameters - carb ratio 1:15; CF 40 give 30 min prior to meals (10) Cardiomyopathy: Plan: EF 50-55% in 02/2023 EF had improved in comparison to 2021 echo remains on coreg compensated from volume standpoint (11) Prolonged QT interval: Plan: QTc is about 500-510msec Looking back at numerous EKGs from now to 2022 this is about baseline reglan, zofran, etc likely all contributing the benefits of his reglan for his severe gastroparesis likely outweigh the small risk of arrhythmia at a chronic QTc of 500msec monitor closely on telemetry no h/o torsades or other severe ventricular based arrhythmia Plan updated pt's father by phone this evening he is aware of right foot fractures need orthotics consult for walking boot once in place Ivan can hopefully d/c home Admission and Anticipated Discharge Date Admission Date: September 28, 2023 Subjective tele stable overnight mild pain R foot only we discussed his metatarsal fractures and ortho consultation had HD w/o incident Review of Systems Review of Systems: cv - no cp, no orthopnea pulm - no dyspnea or PICHARDO GI - no abd pain or N/V Physical Exam 2 Physical Exam: gen - NAD, comfortable appearing - looks good today mouth - MMM neck - no JVD heart - RRR, s1 s2, 1/6 GOKUL lungs - CTA b/l abd - soft NT ND BS+ ext - focal edema distal right donovan and right foot - unchanged; no edema on left; pulses b/l feet 2+ musculo - mid-foot tenderness - mild - and warmth to palpation -- no change psych - a/o x 3 Results & Data Results & Data Vital Signs (Past 12 Hours) Vital Signs Temp Pulse Pulse Pulse Resp BP BP 09/30/23 20:00 82 16 113/58 L 09/30/23 15:16 37.1 C 78 20 153/54 H 09/30/23 14:50 36.8 C 73 149/47 H 09/30/23 14:20 71 136/54 L 09/30/23 14:13 71 113/55 L 09/30/23 14:00 70 86/38 L 09/30/23 13:58 70 09/30/23 13:30 72 115/42 L 09/30/23 13:00 70 119/63 09/30/23 12:30 69 158/89 H 09/30/23 12:00 70 139/55 L 09/30/23 11:30 71 133/59 L 09/30/23 11:04 72 124/57 L 09/30/23 11:00 36.9 C 73 Pulse Ox O2 Del Method 09/30/23 20:00 09/30/23 15:16 98 Room Air 09/30/23 14:50 09/30/23 14:20 09/30/23 14:13 09/30/23 14:00 09/30/23 13:58 09/30/23 13:30 09/30/23 13:00 09/30/23 12:30 09/30/23 12:00 09/30/23 11:30 09/30/23 11:04 09/30/23 11:00 Laboratory Results Laboratory Results - last 48 hr 09/29/23 09/29/23 09/29/23 11:48 14:47 16:56 WBC RBC Hgb Hct MCV MCH MCHC RDW Std Deviation RDW Coeff of Kami Plt Count MPV Immature Gran % (Auto) Neut % (Auto) Lymph % (Auto) [place] % (Auto) Eos % (Auto) Baso % (Auto) Neut # (Auto) Lymph # (Auto) [place] # (Auto) Eos # (Auto) Baso # (Auto) Immature Gran # (Auto) Heparin Anti-Xa, Unfract 0.17 L Sodium Potassium Chloride Carbon Dioxide Anion Gap BUN Creatinine Est Cr Clr Drug Dosing Est GFR ( Amer) Est GFR (Non-Af Amer) BUN/Creatinine Ratio Glucose POC Glucose 365 H* 122 H Calcium Vitamin B12 25-OH Vitamin D Total Folate 09/29/23 09/29/23 09/30/23 20:26 22:26 07:56 WBC 9.79 RBC 2.98 L Hgb 9.7 L Hct 30.4 L MCV 102.0 H MCH 32.6 MCHC 31.9 L RDW Std Deviation 51.2 H RDW Coeff of Kami 13.9 Plt Count 382 MPV 9.0 L Immature Gran % (Auto) 0.8 Neut % (Auto) 59.9 Lymph % (Auto) 20.9 [place] % (Auto) 12.8 Eos % (Auto) 5.0 Baso % (Auto) 0.6 Neut # (Auto) 5.86 Lymph # (Auto) 2.05 [place] # (Auto) 1.25 H Eos # (Auto) 0.49 Baso # (Auto) 0.06 Immature Gran # (Auto) 0.08 Heparin Anti-Xa, Unfract 0.30 0.15 L Sodium 132 L Potassium 4.1 Chloride 93 L Carbon Dioxide 23 Anion Gap 16 H BUN 42 H Creatinine 7.75 H* D Est Cr Clr Drug Dosing 10.4 Est GFR ( Amer) 8.3 Est GFR (Non-Af Amer) 7.2 BUN/Creatinine Ratio 5.4 L Glucose 155 H POC Glucose 76 Calcium 9.0 Vitamin B12 25-OH Vitamin D Total Folate 09/30/23 09/30/23 09/30/23 08:13 08:38 16:04 WBC RBC Hgb Hct MCV MCH MCHC RDW Std Deviation RDW Coeff of Kami Plt Count MPV Immature Gran % (Auto) Neut % (Auto) Lymph % (Auto) [place] % (Auto) Eos % (Auto) Baso % (Auto) Neut # (Auto) Lymph # (Auto) [place] # (Auto) Eos # (Auto) Baso # (Auto) Immature Gran # (Auto) Heparin Anti-Xa, Unfract 0.45 Sodium Potassium Chloride Carbon Dioxide Anion Gap BUN Creatinine Est Cr Clr Drug Dosing Est GFR ( Amer) Est GFR (Non-Af Amer) BUN/Creatinine Ratio Glucose POC Glucose 162 H Calcium Vitamin B12 25-OH Vitamin D Total 25.2 L Folate PG Care Time/CCT Total # of Minutes Spent Total Time Spent with Patient: Total time spent is greater than 50% in coordination of care (as documented) at patient's floor/unit and/or counseling patient: Coding Level of Care Code 35269 SUB INP/OBS CARE Diagnoses Metatarsal fracture S92.309A Deep vein thrombosis (DVT) of right lower extremity I82.401 Pain of right midfoot M79.671 ESRD (end stage renal disease) N18.6 Acute hyponatremia E87.1 Hypertension I10 Hypertension type: unspecified Diabetic gastroparesis E11.43; K31.84 History of pulmonary embolism Z86.711 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
[2023-09-30] MEDS: MELATONIN 3 MG TAB PO PRN (23:56)
[2023-09-30] MEDS: LIDOCAINE 5% 1 PATCH TD ONE (23:57)
[2023-10-01 07:19] LABS: BUN Creatinine Ratio 4.4 (10-20); Calcium 8.9 mg/dl (8.6-10.3); Creatinine Clr Calc Pharmacy 15.4 ml/min; Est GFR (African American) 13.4 ml/min; Est GFR (Non-African American) 11.5 ml/min
[2023-10-01 07:24] LABS: ANTI-Xa, UFH(UnfractionatedHep 0.44 IU/ml (0.3-0.7)
[2023-10-01 07:42] LABS: Folate (Folic Acid),Ser orPlas 8.35 ng/ml (>5.38)
[2023-10-01] MEDS: ONDANSETRON 4 MG OD TAB PO PRN (13:16)
--- NOTE | 2023-10-01 20:27 | Hospitalist Progress Note ---
Date of Service October 01, 2023 Assessment & Plan (1) Metatarsal fracture: Plan: multiple - right foot 1st-4th metatarsals tiny 2nd toe fracture ?Lisfranc ligamentous injury as well ortho consult placed; recs appreciated plan - walking boot with ambulation (partial weight-bearing advised), referral to Dr Rodríguez Luevano post-d/c appreciate ortho consultation no surgery planned at this time pain control mildly decreased 25-OH vit D level - defer management to nephrology (2) Deep vein thrombosis (DVT) of right lower extremity: Plan: Occlusive DVT - posterior tibial vein and peroneal vein. Etiology - immobility? Patient reports having fallen in early September and his ambulation since then has been much more limited than typical. Further, he was hospitalized 09/20 to 09/22 and during that brief stay his med records show he refused heparin SC for DVT proph multiple times. Additionally, he had other brief hospital stays in August 2023. His ESRD could be contributing to increased DVT risk as well. Large hypercoagulable w/u done at [facility] in August in preparation for going on kidney/pancreas transplant list was fully negative (see subjective portion of note). Finally, he did have a PE event in 2020 - hospitalized at [facility] for such; treated with coumadin at that time. Plan - Continue heparin drip. He is a very poor coumadin candidate due to very inconsistent eating habits, gastroparesis/cyclic vomiting (frequent emesis), etc. Although DOACs have not been studied heavily in the ESRD population the limited data we do have suggests that DOACs do tend to be effective and have less bleeding risk than coumadin. To than end will reach out to his transplant team tomorrow at [facility] and ask if Martin is acceptable for Rx for his DVTs. If not then will have to use coumadin. 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 Of note - no clinical evidence to suggest concomitant PEs. I left a message with his transplant team in [place] inquiring if they have any preference for his anticoagulation. Asked them to call me back. Will call them tomorrow again if I don't hear from them. (3) ESRD (end stage renal disease): Plan: Appreciate [facility] assistance. HD schedule - M//. (4) Acute hyponatremia: Plan: 2nd to "pseudo" hyponatremia from his markedly elevated glucose and partially his ESRD. Na level wnl today. (5) Hypertension: Plan: Cont usual meds from home including hydralazine + coreg. (6) Diabetic gastroparesis: Plan: Cont reglan 5mg ac/hs. Ativan prn. Zofran prn. QTc is about 500msec - chronic & stable. 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, with long- term current use of insulin: Plan: a1c 8.4% early August 2023 cont lantus cont novolin-R with carb ratio 1:15; CF 40 adjust as needed f/u DM clinic post discharge (9) Cardiomyopathy: Plan: EF 50-55% in 02/2023 EF had improved in comparison to 2021 echo remains on coreg compensated from volume standpoint (10) Prolonged QT interval: Plan: QTc is about 500-510msec Looking back at numerous EKGs from now to 2022 this is about baseline reglan, zofran, etc likely all contributing the benefits of his reglan for his severe gastroparesis likely outweigh the small risk of arrhythmia at a chronic QTc of 500msec monitor closely on telemetry no h/o torsades or other severe ventricular based arrhythmia Plan updated pt's father by phone yesterday evening he is aware of right foot fractures hoping for d/c home tomorrow Admission and Anticipated Discharge Date Admission Date: September 28, 2023 Subjective no events overnight walking boot was delivered by orthotics today he has used it without difficulty mild pain of R foot only did have 1 episode of nausea with emesis this afternoon but able to tolerate the evening meal moving bowels no dyspnea Review of Systems Review of Systems: CV - no chest pain pulm - no dyspnea or PICHARDO GI - no abd pain Physical Exam Physical Exam: gen - NAD, looks well mouth - MMM neck - no JVD heart - RRR, s1 s2, 1/6 GOKUL lungs - CTA b/l abd - soft NT ND BS+ ext - edema improved distal RLE and right foot; pulses b/l feet 2+ musculo - mid-foot tenderness on right improved psych - a/o x 3 Results & Data Results & Data Vital Signs (Past 12 Hours) Vital Signs Temp Pulse Pulse Resp BP Pulse Ox O2 Del Method 10/01/23 19:50 37.1 C 90 18 140/83 97 Room Air 10/01/23 15:04 82 10/01/23 11:38 36.8 C 80 18 167/68 H 96 Room Air 10/01/23 09:07 74 Laboratory Results Laboratory Results - last 24 hr 10/01/23 10/01/23 10/01/23 06:33 08:12 12:13 Heparin Anti-Xa, Unfract 0.44 Sodium 135 L Potassium 4.0 Chloride 96 L Carbon Dioxide 29 Anion Gap 10 BUN 23 Creatinine 5.25 H* D Est Cr Clr Drug Dosing 15.4 Est GFR ( Amer) 13.4 Est GFR (Non-Af Amer) 11.5 BUN/Creatinine Ratio 4.4 L Glucose 192 H POC Glucose 187 H 264 H Calcium 8.9 Vitamin B12 294 Folate 8.35 10/01/23 10/01/23 16:57 20:41 Heparin Anti-Xa, Unfract Sodium Potassium Chloride Carbon Dioxide Anion Gap BUN Creatinine Est Cr Clr Drug Dosing Est GFR ( Amer) Est GFR (Non-Af Amer) BUN/Creatinine Ratio Glucose POC Glucose 148 H 284 H Calcium Vitamin B12 Folate PG Care Time/CCT Total # of Minutes Spent Total Time Spent with Patient: Total time spent is greater than 50% in coordination of care (as documented) at patient's floor/unit and/or counseling patient: Coding Level of Care Code 23131 SUB INP/OBS CARE 2/35MIN Diagnoses Metatarsal fracture S92.309A Deep vein thrombosis (DVT) of right lower extremity I82.401 ESRD (end stage renal disease) N18.6 Acute hyponatremia E87.1 Hypertension I10 Hypertension type: unspecified Diabetic gastroparesis E11.43; K31.84 History of pulmonary embolism Z86.711 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
[2023-10-01] MEDS ORDERED: SODIUM CHLORIDE 0.9% 1,000 ML IV PRN (20:33)
[2023-10-02] MEDS ORDERED: Nursing to Pharmacy Communication SCH (00:45)
--- NOTE | 2023-10-02 06:27 | Billing Data ---
Date of Service October 02, 2023 Coding Level of Care Code 16507 INT INP/OBS CARE
[2023-10-02 06:53] LABS: ANTI-Xa, UFH(UnfractionatedHep 0.54 IU/ml (0.3-0.7)
[2023-10-02 06:55] LABS: Basophils # (auto) 0.07 K/uL (0.00-0.20); Basophils % (auto) 0.7 %; Eosinophils # (auto) 0.46 K/uL (0.00-0.50); Eosinophils % (auto) 4.7 %; Hematocrit (blood only) 31.6 % (42.0-52.0); Hemoglobin 10.2 g/dl (14.0-18.0); Immature Granulocytes # (auto) 0.13 K/uL (0.01-0.20); Immature Granulocytes % (auto) 1.3 %; Lymphocytes # (auto) 1.57 K/uL (1.20-3.40); Lymphocytes % (auto) 15.9 %; Mean Corpuscular Hemoglobin 32.7 pg (25.0-34.0); Mean Corpuscular Hgb Conc 32.3 g/dL (32.0-36.0); Mean Corpuscular Volume 101.3 fL (80.0-100.0); Mean Platelet Volume 8.4 fL (9.4-12.4); Monocytes % (auto) 11.1 %; Neutrophils # (auto) 6.54 K/uL (1.40-6.50); Neutrophils % (auto) 66.3 %; Platelet Count 362 K/uL (130-400); RDW Coefficient of Variation 14.1 % (11.5-14.5); RDW Standard Deviation 51.4 fL (36.4-46.3); Red Blood Count 3.12 M/uL (4.70-6.10); White Blood Count 9.87 K/ul (4.8-10.8)
--- NOTE | 2023-10-02 10:31 | Dialysis Progress Note ---
Date of Service October 02, 2023 Assessment & Plan Admission and Anticipated Discharge Date Admission Date: September 28, 2023 Subjective Assessment & Plan (1) ESRD (end stage renal disease): Plan: ESRD on MWF HD via AVF HD today 4 hours w/ goal up to 2.5L UF and keeping SBP >110. will monitor during tx b/c on 09/27 we were able to challenge; -no heparin on HD since he's on gtt -2K bath -no FLOR or venofer indicateddoes not have fosrenol w/ him but family brought it in > has not had dose of this or phoslo w/ snack yet -cont 1.2 L FR (2) Deep vein thrombosis (DVT) of right lower extremity: Plan: on heparin gtt ; team considering whether to start coumadin v DOAC (3) Hypertensive urgency: Plan: chronically uncontrolled HTN which is often labile >> see plan above for more aggressive fluid removal -HD today -cont coreg, hydralazine current doses Subjective seen on dialysis. no complaints. on heparin gtt. no sob, no cramping, no bleeding concerns; cyclical n/v for the moment quiet Review of Systems Review of Systems: All systems reviewed & are unremarkable except as noted in Subjective Physical Exam Constitutional: well developed, well nourished, cooperative (on RA lying flat) and comfortable; no acute distress Eyes: EOM intact bilaterally ENMT: Ears: no external ear abnormality Nose: no external nose abnormality Mouth: + dry oral mucous membranes Neck: no nuchal rigidity Respiratory: normal respiratory effort Auscultation: + diminished lung sounds Cardiovascular: Rate/Rhythm: regular rate and regular rhythm Extremities: + AV fistula (+t/b); no edema (except R pedal/ankle) Gastrointestinal (Abdomen): Inspection/Auscultation: normal bowel sounds Percussion/Palpation: abdomen soft; abdomen nontender Musculoskeletal: Extremities: strength 5/5 throughout Skin: no rashes, warm and dry Psychiatric: Orientation: alert and oriented x 3 Results & Data Vital Signs (Past 12 Hours) Vital Signs Temp Pulse Resp BP Pulse Ox O2 Del Method 10/02/23 07:33 36.8 C 76 18 141/66 H 96 Room Air 10/02/23 02:15 36.7 C 73 18 117/67 95 Room Air 10/01/23 22:45 36.7 C 88 18 128/86 96 Room Air
--- NOTE | 2023-10-02 16:29 | Discharge Summary ---
Date of Service October 02, 2023 Admission HPI Per Admitting Provider 53 year old male with a past medical history of ESRD on HD, DM-1 presenting with concern for right LE swelling. Started this afternoon. Right foot/calf erythematous and edematous. Not painful. Subjective fever at home this afternoon. Denies chest pain, dyspnea, pleuritic pain. Denies injury. No recent travel. Was hospitalized last week with nausea/vomiting thought to be secondary to gastroparesis. Notes that he had PE a number of years ago and was on Coumadin for 6 months; follows with Dr. Lennon. Is being worked up at [facility] of kidney/pancreas transplant and states that he had hypercoagulability work-up there. ED course Significant for: Venous Doppler LE with Occlusive deep veins thrombosis of the posterior tibial vein and peroneal vein. Hyponatremic- Na= 127. Anemic; Hbg=9.7. Was started on heparin gtt in ED. Discharge Exam gen - NAD, looks well mouth - MMM neck - no JVD heart - RRR, s1 s2, 1/6 GOKUL lungs - CTA b/l abd - soft NT ND BS+ ext - edema improved distal RLE and right foot; pulses b/l feet 2+ musculo - mid-foot tenderness on right improved psych - a/o x 3 Discharge Data Allergies Allergy/AdvReac Type Severity Reaction Status Date / Time shellfish derived Allergy Severe anaphylaxis Verified 09/28/23 01:05 codeine Allergy Intermediate Hives Verified 09/28/23 01:05 promethazine Allergy Intermediate itchy/hives Verified 09/28/23 01:05 Consultations 09/28/23 00:23 ED Decision to Admit Stat 09/28/23 00:47 Consult Nephrology Routine 09/30/23 11:28 Consult Orthopedic Surgery Routine 10/02/23 10:22 Burn CD for patient Routine Ordered Studies 09/27/23 22:24 US venous doppler LE RT Urgent 09/30/23 08:05 CT ankle RT wo con Stat CT foot RT wo con Stat Hospital Course (1) Deep vein thrombosis (DVT) of right lower extremity: - Occlusive deep veins thrombosis of the posterior tibial vein and peroneal vein in right LE - Started on heparin gtt - given ESRD will likely need to be on Warfarin for anticoagulation - recently hospitalization, but otherwise no obvious provoking factor - history of prior PE - request for [facility] records for hypercoagulability work up (2) Acute hyponatremia: - Na= 127 - recently admitted with nausea/vomiting secondary to gastroparesis, appetite deceases since he left and has been limiting sodium intake - PO fluids tonight - Caution with as he has ESRD and does not make urine - Repeat with morning labs; if still low would consider gentle IVFs (3) 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, with long- term current use of insulin: - continue Lantus 20u daily and will add ISS (4) ESRD (end stage renal disease): - ESRD HD on MWF - has not missed any sessions - consult nephrology for HD tomorrow (5) Hypertension: - continue carvedilol, hydralazine (6) Diabetic gastroparesis: - continue Reglan, Zofran, Ativan prn - continue pantoprazole (7) Anxiety: - continue sertraline, mirtazapine (8) Anemia: - anemia in the setting of ESRD on HD - hgb= 9.7; baseline 10-11 Plan Diet: DM1, Renal VTE Prophylaxis: heparin gtt Code: Full Discharge Plan Discharge Items Patient Disposition: Home - Self-Care Reason For Visit: DVT Discharge Diagnosis: 1. DVT of the right leg 2. Multiple metatarsal fractures of the right foot 3. Right foot 2nd toe fracture 4. End-stage renal disease on dialysis 5. Type 1 diabetes 6. Possible Lisfranc Ligament Injury of right foot Activity: Per Instructions section Weightbearing: Right partial Weightbearing Comment: Use walking boot at all times; place majority of weight on heel Non-emergency contact: Primary Care Provider, Surgeon and Supply Chain Assistant Call non-emergency contact if: you have any medication questions, your symptoms worsen and your pain is not controlled Follow-up/Referrals: Genet Cool MD [Primary Care Provider] - 10/06/23 2:30 pm Sean Luevano DO [Surgeon] - (Please call for follow up in 1-2 weeks for right foot metatarsal fractures) Diet: Carb Count or DM1 and Dialysis Renal Fluids: 1500ml (6 cups) Addtl Attending Provider Instructions: Mr De Los Santos, You were admitted due to finding DVT blood clots in your right leg. This was contributing to some of your swelling in that leg. In addition you have multiple metatarsal fractures of your right foot. This was causing swelling and pain. Orthopedics saw you in consult and advised a walking boot to use at all times when walking/ambulating. They also advised follow-up with Dr Rodríguez Luevano, orthopedics. When walking please try to place most of your weight on the heel of the right foot. We call this "partial weight bearing." You received IV heparin for your blood clots while here, and you will take Eliquis by mouth at home. Recommendations - 1. Eliquis 5mg twice daily, first dose tomorrow morning on 10/03/23. This is your blood thinner. 2. Be sure to bring the CD with your CT scans & x-rays of your right foot to Dr Luevano's appointment. 3. If you have severe pain you may take hydrocodone-acetaminophen 1 tablet every 6 hours as needed. This contains tylenol in it so be sure to not exceed 3000mg of tylenol in a 24-hour period. I typically recommend that if you are taking hydrocodone to skip using any [id number]-[id number] tylenol. This medication may make your gastroparesis worse. It can also cause constipation, impair your senses, and can cause drowsiness. No driving a car if you take hydrocodone. 4. Walking boot as previously discussed. 5. Follow-up - see separate section. Return to [facility] if - * you have shortness of breath * you have chest pains * you have worsening right leg or right foot pain * you have bleeding from any location as noted below * any other concerns It was our pleasure to care for you! -Dr Kristian Hollinstl Bonderizer Operator Provider Instructions: Anticoagulant (Blood Thinner) Medication Instructions: Your DVT blood clot condition is typically treated with an anticoagulant. Anticoagulants will thin your blood to help prevent new clots. Your blood thinner is ELIQUIS. The dose of Eliquis is 5mg twice daily. * You should take your medication exactly as directed. * Never skip a dose. * Never take a double dose. If you miss a dose, take it as soon as you remember. Call your Primary Care doctor if you experience any of the following: * Swelling or Pain in your leg * Sudden, continuous pain deep in a muscle * Pain that worsens when you are active or when you stand still for a long time * Chest Pain * Sudden Shortness of Breath * Rapid or pounding heart beat * Fainting * Dizziness * Cough with blood or bloody sputum * Sweating more than normal * Bruises * Heavy or uncontrolled bleeding * Blood in your urine, stool or vomit * Black or tarry stools * Heavy nose bleeding Caring for Your Self at Home: * Avoid sitting, standing or lying down for long periods without moving your legs and feet * When traveling by car, stop to get out and move around at least once every 3 hours * On long airplane, train or bus rides, get up and move around when possible * If you can't get up, wiggle your toes and tighten your calves to keep your blood moving Pending Studies at Discharge: No Stand-Alone Forms: My [facility] [employer] & Image, Smoking Cessation Medications and DC Order Prescriptions: New Eliquis 5 mg tablet 5 mg PO BID Qty: 60 2RF hydrocodone-acetaminophen 5-325 mg tablet 1 tab PO Q6H PRN (Reason: pain) Qty: 10 0RF Continued acetaminophen 325 mg capsule 650 mg PO Q4H PRN (Reason: Pain (Scale Score 1-3)) atorvastatin 10 mg tablet 10 mg PO QAM Qty: 90 1RF pantoprazole [Protonix] 40 mg tablet,delayed release (DR/EC) 40 mg PO QAM Qty: 90 1RF lorazepam 0.5 mg tablet 0.5 mg PO Q8H PRN (Reason: severe nausea) Qty: 30 0RF mirtazapine 7.5 mg tablet 7.5 mg PO HS midodrine 5 mg tablet 5 mg PO .COMPLEX Rx Instructions: 5 mg orally as needed at dialysis; ondansetron HCl 4 mg tablet 8 mg PO Q4 PRN (Reason: nausea or vomiting) Qty: 60 2RF melatonin 1 mg tablet 4 mg PO HS PRN (Reason: Sleep) sertraline 100 mg tablet 100 mg PO QAM Rx Instructions: TOTAL DOSE 125 MG--TAKES WITH 25 MG TAB. sertraline 25 mg tablet 25 mg PO QAM Rx Instructions: TOTAL DOSE 125 MG--TAKES WITH 100 MG TAB. carvedilol [Coreg] 12.5 mg tablet 12.5 mg PO BID Qty: 30 3RF Rx Instructions: must administer with a meal/food lanthanum 500 mg tablet,chewable 500 mg PO DIRECTED Rx Instructions: 1 tablet with meals and 1 with snacks= 6 tab for the day Novolin R FlexPen 100 unit/mL (3 mL) insulin pen 0 sliding scale dose subcut TIDM Patient Comments: 9 units insulin glargine [Basaglar KwikPen U-100 Insulin] 100 unit/mL (3 mL) insulin pen 20 unit SUBCUT QAM hydralazine 50 mg Tablet 50 mg PO TID Qty: 100 0RF metoclopramide HCl 5 mg tablet 5 mg PO ACHS Qty: 100 0RF Discharge Orders: Discharge Order (Routine); Ordered 10/02/23 Ordered By: Guevara Townsend Admission Data Admit Date/Time: 09/28/23 00:47 Attending Provider: Guevara Townsend Admit Provider: Kenia Cardenas Primary Care Provider: Genet Cool Other Providers: Colton Guajardo; Arcenio Ortiz; Parag Isaac Coding Diagnoses Deep vein thrombosis (DVT) of right lower extremity I82.401 Acute hyponatremia E87.1 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
[2023-10-02] MEDS ORDERED: APIXABAN 5 MG TABLET PO STA (16:52)
== END 2023-10-02 18:08 | disposition home or self-care (01) | DRG 299 ==
LOC: ED 22:16 → SUATTDRO 09-28 00:47 → EDINP 09-28 00:47 → 2N 09-28 01:52
DX: R94.31 Abnormal electrocardiogram [ECG] [EKG]; I51.5 Myocardial degeneration; E87.1 Hypo-osmolality and hyponatremia; E11.610 Type 2 diabetes mellitus with diabetic neuropathic arthropathy; I82.451 Acute embolism and thrombosis of right peroneal vein; M54.16 Radiculopathy, lumbar region; E10.43 Type 1 diabetes mellitus with diabetic autonomic (poly)neuropathy; Z88.8 Allergy status to other drugs, medicaments and biological substances; F32.A Depression, unspecified; Z87.891 Personal history of nicotine dependence; K21.9 Gastro-esophageal reflux disease without esophagitis; X58.XXXA Exposure to other specified factors, initial encounter; D68.52 Prothrombin gene mutation; F41.9 Anxiety disorder, unspecified; Z86.711 Personal history of pulmonary embolism; Z88.5 Allergy status to narcotic agent; I12.0 Hypertensive chronic kidney disease with stage 5 chronic kidney disease or end stage renal disease; Z99.2 Dependence on renal dialysis; I16.0 Hypertensive urgency; S92.341A Displaced fracture of fourth metatarsal bone, right foot, initial encounter for closed fracture; E10.65 Type 1 diabetes mellitus with hyperglycemia; N18.6 End stage renal disease; Z79.899 Other long term (current) drug therapy; S92.311A Displaced fracture of first metatarsal bone, right foot, initial encounter for closed fracture; I82.441 Acute embolism and thrombosis of right tibial vein; S92.321A Displaced fracture of second metatarsal bone, right foot, initial encounter for closed fracture; I25.10 Atherosclerotic heart disease of native coronary artery without angina pectoris; E10.22 Type 1 diabetes mellitus with diabetic chronic kidney disease; S92.331A Displaced fracture of third metatarsal bone, right foot, initial encounter for closed fracture; E10.3599 Type 1 diabetes mellitus with proliferative diabetic retinopathy without macular edema, unspecified eye; D63.1 Anemia in chronic kidney disease

== ENCOUNTER 2023-12-06 13:23 | Inpatient (IN) ==
--- OUTSIDE RECORDS SUMMARY | 2023-12-06 13:31 | External Medical Summary ---
Author Name Unknown Address Unknown Organization : Laboratory Report Ordering Provider Test Date Status ALEJANDRA SALAZAR V 11/19/2023 11:09:13 Final Therapeutic ranges for non-o perative patients:
Prophylaxsis/treatment of DVT: (Range:2.0-3.0)
Treatment of pulmonary embolism:(Range:2.0-3.0)
Prevention of systemic embolism from:
-tissue heart valves
-acute myocardial infarction
-valvular heart disease
-atrial fibrillation
(Range: 2.0-3.0)
Mechanical prosthetic valves: (Range: 2.5-3.5) Observation Date Value Abnormality Reference (Units ) Status INR in Capillary blood by Coagulation assay 11/19/2023 11:09:13 3.6 (INR) Final Performing Location
--- OUTSIDE RECORDS SUMMARY | 2023-12-06 13:31 | External Medical Summary | Summary of Care ---
Author Name Unknown Organization [facility] Address [address] [place] [address] Phone [phone] Care Team Providers Care Blacking Machine Operator Name Role Phone Genet Cool MD Primary Care Provid er Reason for Visit * Reason Comments Dosage Adjustment In Person (Anticoag Cl inic) Encounter Details Date Type Department Care Team (Latest Contact Info) Description 11/23/2023 1:40 PM EDT Anticoagulation Pharmacy, [address] [address] [facility] [address] [place] [address] Anticoagulation management encounter*; End stage renal disease on dialysis ([facility]); Single subsegmental pulmonary embolism without acute cor pulmonale ([facility]); History of DVT in adulthood Allergies Active Allergy Reactions Criticality Noted Date Comments Codeine Itching 05/24/2019 Promethazine Hcl Hives 10/19/2010 Shellfish-Derived Products Anaphylaxis High 04/26/20 18 documented as of this encounter (statuses as of 11/23/2023) Medications Medication Sig Dispensed Refills Start Date End Date Status [facility] STRPIndications:DK A, type 1 ([facility]),DM type 1 causing renal disease, not at goal ([facility]) check your urine if you feel your sugar is too high and you feel dried up 10 Strip 0 09/21/2013 Active ONETOUCH JOE LANCETS FINE MISCIndications:DK A, type 1 (HCC) use 4 times a day as instructed 100 Units 0 09/21/2013 Active BANDAR CONTOUR NEXT TEST STRPIndications:Ty pe I (juvenile type) diabetes mellitus without mention of complication, not stated as uncontrolled for glucose testing 6-8 x day with contour next link meter for minimed pump 650 Strip 3 11/03/2013 Active LORAzepam (ATIVAN) 0.5 MG Tablet Take 1 Tablet by mouth every 12 hours as needed for Anxiety. 0 05/07/2015 Active Acetaminophen 325 MG CAPS Take 2 Tabs by mouth as needed. Active atorvaSTATin (LIPITOR) 10 MG Tablet Take 1 Tablet by mouth in the morning. 12/15/2018 Active Cholecalciferol (VITAMIN D3) 2000 units Capsule Take 1 Capsule by mouth in the morning. 12/16/2018 Active B Biryavg-T-Pijnx Acid (RENAL VITAMIN) 1 MG Capsule TAKE 1 CAPSULE BY MOUTH EVERY DAY 90 Cap 3 08/01/2019 Active Basaglar KwikPen 100 UNIT/ML Subcutaneous Solution Pen-injector (Insulin Glargine) Inject 12 Units under the skin in the morning. Active Melatonin 3 MG Oral Tablet Take 1 Tablet by mouth at bedtime. Active Velphoro 500 MG Oral Tablet Chewable (Sucroferric Oxyhydroxide) Take 2 tabs with meals 180 Tablet 6 06/22/2021 Active Additional Information Patient not taking.Informant: Patient, Reported on 10/20/2023 BD Pen Needle Annalise 2nd Gen 32G X 4 MM USE 5 PER DAY WITH INSULIN INJECTIONS 09/11/2021 Active Sertraline HCl 25 MG Oral Tablet (Zoloft) Take 1 Tablet by mouth in the morning. 11/11/2021 Active Midodrine HCl 5 MG Oral Tablet (Proamatine) PLEASE SEE ATTACHED FOR DETAILED DIRECTIONS 05/14/2022 Active Trimethobenzamide HCl 300 MG Oral Capsule Take 1 Capsule by mouth in the morning and 1 Capsule at noon and 1 Capsule before bedtime. NEEDED FOR NAUSEA . 30 Capsule 09/16/2022 Active Additional Information Patient not taking.Informant: Patient, Reported on 11/03/2023 Ondansetron HCl 8 MG Oral Tablet Take 1 Tablet by mouth every 8 hours as needed for Nausea. 20 Tablet 10/17/2022 Active Mirtazapine 7.5 MG Oral Tablet (Remeron) Take 1 Tablet by mouth at bedtime. 11/10/2022 Active Diclofenac Sodium 1 % External Gel Apply topically to affected area. Daily as needed per patient Active BD Pen Needle Mini U/F 31G X 5 MM 12/10/2022 Active LORazepam 0.5 MG Oral Tablet (Ativan) Take 1 Tablet by mouth every 8 hours as needed for Other (nausea). 6 Tablet 04/18/2023 Active NovoLIN N 100 UNIT/ML Subcutaneous Suspension (insulin isophane human) Inject under the skin three times a day before meals. Active Aprepitant 80 MG Oral Capsule (Emend) TAKE 1 CAPSULE (80 MG TOTAL) BY MOUTH DAILY NEEDED (NAUSEA AND/OR VOMITING) 06/15/2023 Active Sertraline HCl 100 MG Oral Tablet (Zoloft) Take 1 Tablet by mouth in the morning. Active Eliquis 5 MG Oral Tablet Take 1 Tablet by mouth in the morning and 1 Tablet before bedtime. 10/02/2023 Active hydrALAZINE HCl 50 MG Oral Tablet (Apresoline) Take 1 Tablet by mouth in the morning and 1 Tablet at noon and 1 Tablet before bedtime. 09/23/2023 Active Carvedilol 12.5 MG Oral Tablet (Coreg) Take 1 Tablet by mouth in the morning and 1 Tablet before bedtime. 07/02/2023 Active Xphozah 30 MG Oral Tablet Take 1 Tablet by mouth 2 times a day with morning and evening meals. 10/05/2023 Active Metoclopramide HCl 5 MG Oral Tablet (Reglan) Take 1 Tablet by mouth in the morning and 1 Tablet at noon and 1 Tablet in the evening and 1 Tablet before bedtime. 09/23/2023 Active NovoLIN R FlexPen 100 UNIT/ML Injection Solution Pen-injector Inject under the skin. Sliding scale with meals 09/02/2023 Active HYDROcodone-Acetam inophen 5-325 MG Oral Tablet 1 Tablet. 10/02/2023 Active Warfarin Sodium 5 MG Oral Tablet (Coumadin)Indicati ons:End stage renal disease on dialysis (HCC),History of DVT in adulthood,Single subsegmental pulmonary embolism without acute cor pulmonale (HCC),Anticoagulat ion management encounter Take 1 Tablet by mouth every evening. 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 (HCC) 1.5 mg PERINEURAL PRN 10/08/2023 10/07/2024 Active documented as of this encounter (statuses as of 11/23/2023) Active Problems Problem Noted Date Diagnosed Date History of DVT in adulthood 11/11/2023 Prolonged QT interval 04/28/2023 Secondary DM with [...] 07/13/2020 Vitreous hemorrhage of left eye 03/16/2020 End stage renal disease on dialysis 11/05/2018 Gastroparesis 05/14/2016 Hydronephrosis with ureteral calculus 03/15/2016 Acute pyelonephritis 03/15/2016 T12 compression fracture 03/15/2016 ETOH abuse 04/05/2012 Overview: [facility] Admission with DKA March 2012 DKA, type [...] as of this encounter (statuses as of 11/23/2023) Resolved Problems Problem Noted Date Diagnosed Date [...] as of this encounter (statuses as of 11/23/2023) Immunizations Name Administration Dates Next Due COVID-19 mRNA, LNP-s, No Pre serve, 2-Dose Series (Moderna) 08/10/2020,07/17/2020 PPD 06/18/2009,04/03/2008 Pneumococcal Conjugate Vacci ne, 20-valent ([id number]) 10/20/2023(Deferred: Contraindication) Pneumococcal Polysaccharide PPV23 (Pneumovax) 04/05/2012,03/31/2007 Season Influenza, [...] No 06/29/2023 documented as of this encounter Progress Notes * Kezia Hayden, [facility] - 11/23/2023 1:37 PM EDT Images from the original note were not included. Medication Therapy Disease Management - Anticoagulation Patient: Jorge Alberto De Los Santos | : 1970 Subjective Patient-Reported Symptoms: Patient Findings Positives: Bruising (some bruising from dialysis) Negatives: Signs/symptoms of thrombosis, Signs/symptoms of bleeding, Change in health, Change in alcohol use, Change in activity, Upcoming invasive procedure, Missed doses, Extra doses, Change in medications, Change in diet/appetite Objective Current Warfarin Dose As of 11/23/2023 Warfarin maintenance plan: No maintenance plan INR Result As of 11/23/2023 INR goal: 2.0-3.0 INR used for dosin.1 (11/23/2023) Assessment & Plan Warfarin Plan As of 11/23/2023 Full warfarin instructions: 11/22: 2.5 mg; 11/23: 2.5 mg; 11/24: 5 mg Next INR check: 11/26/2023 Repeat PT/INR in 3 day(s) Weekly dose: establishing Additional Dosing Information: Description Dialysis MWF From [facility] 11/11/23: "Dialysis patient undergoing workup at [facility] for possible kidney pancreas transplant with recent diagnosis of DVT. Currently on Eliquis. [facility] requesting change from Eliquis to warfarin. His PCP works with [facility] but they can not see new patients until December. Will start transition in [facility] anti coag clinic at least for the time being and look eventuallyto transition to [facility] later in the summer" Kezia Hayden [facility] Clinical Pharmacist 11/23/2023, 1:37 PM documented in this encounter Plan of Treatment Upcoming Encounters Date Type Department Care Team (Late st Contact Info) Description 11/26/2023 10:30 AM EDT [address] [address] [facility] [address] [facility] [address] Scheduled Procedures Name Priority Associated Diagnoses Date/Ti me COLONOSCOPY FLEXIBLE PROXIMA L DIAGNOSTIC Recall Screening for colon cancer Health Maintenance Due Date Last Done Comments Depression Screening 1982 DTaP,Tdap,and Td Vaccines (1 - Tdap) 1989 Hepatitis B (1 of 3 - 19+ 3-dose series) 1989 Zoster Vaccines (1 of 2) 1989 Pneumococcal Vaccine: Pediatrics (0 to 5 Years) and At-Risk Patients (6 to 64 Years) (3 of 3 - PCV) 04/05/2013 04/05/2012, 03/31/2007 Cologuard 08/28/2015 Fecal Occult Blood Test 08/28/2015 Sigmoidoscopy 08/28/2015 Diabetic Foot Exam 05/18/2016 05/18/2015, 0 08/31/2008, 06/16/2007, Additional history exists Diabetic Eye Exam 11/20/2023 11/19/2022, , 08/20/2021, Additional history exists Influenza Vaccine (FLU shot) (Season Ended) 2024 04/08/2022, 03/25/2021, 03/05/2020, Additional history exists HbA1c 05/07/2024 11/06/2023, 02/0 11/2023, 06/30/2023, Additional history exists Lipid Panel 08/19/2028 08/20/2023, 02/0 02/2021, 06/09/2019, Additional history exists Colonoscopy 11/20/2032 11/20/2022, 11/20/2022 Colorectal Cancer Screening [...] Procedure Name Priority Date/Time Associated Diagnosis Comments INR FINGERSTICK, POINT OF CARE STAT 11/23/2023 1:40 PM EDT End stage renal disease on dialysis (HCC) Single subsegmental pulmonary embolism without acute cor pulmonale (HCC) History of DVT in adulthood Anticoagulation management encounter documented in this encounter Results * INR FINGERSTICK, POINT OF CARE (11/23/2023 1:40 PM EDT) Fingerstick INR 3.1 INR 4 1:42 PM EDT [facility]01 Blood 11/23/2023 1:40 PM EDT 11/23/2023 1:42 PM EDT Narrative [facility]- - 11/23/2023 1:42 PM EDT Therapeutic ranges for non-operative patients: Prophylaxsis/treatment of DVT: (Range:2.0-3.0) Treatment of pulmonary embolism:(Range:2.0-3.0) Prevention of systemic embolism from: -tissue heart valves -acute myocardial infarction -valvular heart disease -atrial fibrillation (Range: 2.0-3.0) Mechanical prosthetic valves: (Range: 2.5-3.5) Ben Mary Ann V, [facility] LAB POINT OF CARE TE ST DOCKED DEVICE UNSOLICITED RESULTS [facility]- [address] [place] [address] documented in this encounter Visit Diagnoses Diagnosis Anticoagulation management encounter- Primary Encounter for therapeutic drug monitoring End stage renal disease on dialysis (HCC) End stage renal disease Single subsegmental pulmonary embolism without acute cor pulmonale (HCC) History of DVT in adulthood documented in this encounter Advance Directives Documents on File Type Date Recorded Patient Wind Turbine Technician Expl anation Power of Poultry Hatchery Laborer 01/15/2021 POWER OF A TTORNEY * Full Code (Latest Code Status on File) Date Activated Date Inactivated Comments 06/29/2023 8:35 PM 07/01/2023 8:09 PM This order r eflects the patients wishes and were consensually agreed upon. Question Answer Comments Discussion of Advance Directives occurred with: Patient Does the patient have a Living Will? No Does the patient have Health Care Power of Attor susanne? No * Full Code Date Activated Date Inactivated Comments 10/16/2022 12:11 AM 10/17/2022 5:53 PM This order reflects the patients wishes and were consensually agreed upon. Question Answer Comments Discussion of Advance Direct henri occurred with: Not Discussed due to patient's condition * Full Code Date Activated Date Inactivated Comments 09/14/2022 7:59 AM 09/16/2022 5:19 PM This order re flects the patients wishes and were consensually agreed upon. Question Answer Comments Discussion of Advance Directives occurred with: Family Does the patient have a Living Will? No Does the patient have Health Care Power of Attor susanne? No * Full Code Date Activated Date Inactivated Comments 01/13/2021 1:16 PM 01/14/2021 7:45 PM This order ref lects the patients wishes and were consensually agreed upon. * Full Code Date Activated Date Inactivated Comments 11/15/2020 6:43 PM 11/20/2020 7:42 PM This order r eflects the patients wishes and were consensually agreed upon. Question Answer Comments Discussion of Advance Directives occurred with: Patient Care Teams Blacking Machine Operator Relationship Specialty Start Date End Date Genet Cool MD [address] [place] [address] [place] [id number] PCP - General Internal Medicine 01/06/23 documented as of this encounter
--- OUTSIDE RECORDS SUMMARY | 2023-12-06 13:31 | External Medical Summary ---
Author Name Unknown Address Unknown Organization : Laboratory Report Ordering Provider Test Date Status ALEJANDRA SALAZAR V 12/03/2023 10:01:35 Final Therapeutic ranges for non-o perative patients:
Prophylaxsis/treatment of DVT: (Range:2.0-3.0)
Treatment of pulmonary embolism:(Range:2.0-3.0)
Prevention of systemic embolism from:
-tissue heart valves
-acute myocardial infarction
-valvular heart disease
-atrial fibrillation
(Range: 2.0-3.0)
Mechanical prosthetic valves: (Range: 2.5-3.5) Observation Date Value Abnormality Reference (Units ) Status INR in Capillary blood by Coagulation assay 12/03/2023 10:01:35 1.6 (INR) Final Performing Location
--- OUTSIDE RECORDS SUMMARY | 2023-12-06 13:31 | External Medical Summary ---
Author Name Unknown Address Unknown Organization : Laboratory Report Ordering Provider Test Date Status ALEJANDRA SALAZAR V 11/23/2023 13:40:32 Final Therapeutic ranges for non-o perative patients:
Prophylaxsis/treatment of DVT: (Range:2.0-3.0)
Treatment of pulmonary embolism:(Range:2.0-3.0)
Prevention of systemic embolism from:
-tissue heart valves
-acute myocardial infarction
-valvular heart disease
-atrial fibrillation
(Range: 2.0-3.0)
Mechanical prosthetic valves: (Range: 2.5-3.5) Observation Date Value Abnormality Reference (Units ) Status INR in Capillary blood by Coagulation assay 11/23/2023 13:40:32 3.1 (INR) Final Performing Location
--- OUTSIDE RECORDS SUMMARY | 2023-12-06 13:31 | External Medical Summary ---
Author Name Unknown Address Unknown Organization : Laboratory Report Ordering Provider Test Date Status ALEJANDRA SALAZAR V 11/26/2023 10:34:31 Final Therapeutic ranges for non-o perative patients:
Prophylaxsis/treatment of DVT: (Range:2.0-3.0)
Treatment of pulmonary embolism:(Range:2.0-3.0)
Prevention of systemic embolism from:
-tissue heart valves
-acute myocardial infarction
-valvular heart disease
-atrial fibrillation
(Range: 2.0-3.0)
Mechanical prosthetic valves: (Range: 2.5-3.5) Observation Date Value Abnormality Reference (Units ) Status INR in Capillary blood by Coagulation assay 11/26/2023 10:34:31 2.9 (INR) Final Performing Location
--- OUTSIDE RECORDS SUMMARY | 2023-12-06 13:31 | External Medical Summary | Summary of Care ---
Author Name Unknown Organization [facility] Address [address] [place] [address] Phone [phone] Care Team Providers Care Concierge Manager Name Role Phone Genet Cool MD Primary Care Provid er Reason for Visit * Reason Onset Date Comments MyCode Nonconsent - Not interested at this time 11/26/2023 Encounter Details Date Type Department Care Team (Late st Contact Info) Description 11/26/2023 Orders Only Outcomes Research Department [address], [place] [id number] Anju Pimentel CHRA MyCode Nonconsent Documentation Allergies Active Allergy Reactions Criticality Noted Date Comments Codeine Itching 05/24/2019 Promethazine Hcl Hives 10/19/2010 Shellfish-Derived Products Anaphylaxis High 04/26/20 18 documented as of this encounter (statuses as of 11/26/2023) Medications Medication Sig Dispensed Refills Start Date End Date Status [facility] STRPIndications:DK A, type 1 (HCC),DM type 1 causing renal disease, not at goal (HCC) check your urine if you feel your sugar is too high and you feel dried up 10 Strip 0 09/21/2013 Active ONETOUCH DELICA LANCETS FINE MISCIndications:DK A, type 1 (HCC) [...] mouth in the morning. 12/16/2018 Active B Dzlgtyj-V-Scyqb Acid (RENAL VITAMIN) 1 MG Capsule TAKE [...] as of this encounter (statuses as of 11/26/2023) Active Problems Problem Noted Date Diagnosed Date [...] compression fracture 03/15/2016 ETOH abuse 04/05/2012 Overview: [facility] Admission with DKA March 2012 [...] as of this encounter (statuses as of 11/26/2023) Resolved Problems Problem Noted Date Diagnosed Date [...] as of this encounter (statuses as of 11/26/2023) Immunizations Name Administration Dates Next Due COVID-19 mRNA, LNP-s, No Pre serve, 2-Dose Series (Moderna) 08/10/2020,07/17/2020 PPD 06/18/2009,04/03/2008 Pneumococcal Conjugate Vacci ne, 20-valent ([id number]) 10/20/2023(Deferred: Contraindication) Pneumococcal Polysaccharide PPV23 (Pneumovax) 04/05/2012,03/31/2007 [...] as of this encounter Progress Notes * Anju Pimentel CHRA - 11/26/2023 10:28 AM EDT [place] Nonconsent Documentation Jorge Alberto De Los Santos was approached in the clinic regarding participation in the MyCode Project and did not consent. documented in this encounter Plan of Treatment Upcoming Encounters Date Type Department Care Team (Late st Contact Info) Description 12/03/2023 9:50 AM EDT Anticoagulation Pharmacy, [place] [address] [place] [address] [facility] [address] [facility] [place] [address] Scheduled Procedures Name Priority Associated Diagnoses Date/Ti [...] Documents on File Type Date Recorded Patient Marketing Manager Expl anation Power of Power Screwdriver Operator 01/15/2021 POWER OF A TTORNEY * Full [...] Advance Directives occurred with: Patient Care Teams Concierge Manager Relationship Specialty Start Date End Date Genet Cool MD [address] [place] [address] [place] [id number] PCP - General Internal Medicine 01/06/23 documented as of this encounter
--- OUTSIDE RECORDS SUMMARY | 2023-12-06 13:31 | External Medical Summary | Summary of Care ---
Author Name Unknown Organization [facility] Address [address] [place] [address] Phone [phone] Care Team Providers Care Paper Twister Name Role Phone Genet Cool MD Primary Care Provid er Reason for Visit * Reason Comments Follow Up F/u GERD c/o of naus edna today Encounter Details Date Type Department Care Team (Latest Contact Info) Description 11/19/2023 9:30 AM EDT Office Visit Gastroenterology, [facility] [place] [address] [facility] [place] [id number] Ximena Greenberg CRNP [address] [place] [id number] Gastroesophageal reflux disease, unspecified whether esophagitis present*; Gastroparesis Allergies Active Allergy Reactions Criticality Noted Date Comments Codeine Itching 05/24/2019 Promethazine Hcl Hives 10/19/2010 Shellfish-Derived Products Anaphylaxis High 04/26/20 18 documented as of this encounter (statuses as of 11/19/2023) Medications Medication Sig Dispensed Refills Start Date End Date Status [facility] STRPIndications: DKA, type 1 (HCC),DM type 1 causing renal disease, not at goal (HCC) check your urine if you feel your sugar is too high and you feel dried up 10 Strip 0 4 Active ONETOUCH DELICA LANCETS FINE MISCIndications: DKA, type 1 (HCC) use 4 times a day as instructed 100 Units 0 4 Active BANDAR CONTOUR NEXT TEST STRPIndications: Type I (juvenile type) diabetes mellitus without mention of complication, not stated as uncontrolled for glucose testing 6-8 x day with contour next link meter for minimed pump 650 Strip 3 4 Active LORAzepam (ATIVAN) 0.5 MG Tablet Take 1 Tablet by mouth every 12 hours as needed for Anxiety. 0 5 Active Acetaminophen 325 MG CAPS Take 2 Tabs by mouth as needed. Active atorvaSTATin (LIPITOR) 10 MG Tablet Take 1 Tablet by mouth in the morning. 9 Active Cholecalciferol (VITAMIN D3) 2000 units Capsule Take 1 Capsule by mouth in the morning. 9 Active B Xqcpywr-P-Geknk Acid (RENAL VITAMIN) 1 MG Capsule TAKE 1 CAPSULE BY MOUTH EVERY DAY 90 Cap 3 0 Active Basaglar KwikPen 100 UNIT/ML Subcutaneous Solution Pen-injector (Insulin Glargine) Inject 12 Units under the skin in the morning. Active Melatonin 3 MG Oral Tablet Take 1 Tablet by mouth at bedtime. Active Velphoro 500 MG Oral Tablet Chewable (Sucroferric Oxyhydroxide) Take 2 tabs with meals 180 Tablet 6 2 Active Additional Information Patient not taking.Informant: Patient, Reported on 10/20/2023 BD Pen Needle Annalise 2nd Gen 32G X 4 MM USE 5 PER DAY WITH INSULIN INJECTIONS 2 Active Sertraline HCl 25 MG Oral Tablet (Zoloft) Take 1 Tablet by mouth in the morning. 2 Active Midodrine HCl 5 MG Oral Tablet (Proamatine) PLEASE SEE ATTACHED FOR DETAILED DIRECTIONS 2 Active Trimethobenzamid e HCl 300 MG Oral Capsule Take 1 Capsule by mouth in the morning and 1 Capsule at noon and 1 Capsule before bedtime. NEEDED FOR NAUSEA . 30 Capsule 3 Active Additional Information Patient not taking.Informant: Patient, Reported on 11/03/2023 Ondansetron HCl 8 MG Oral Tablet Take 1 Tablet by mouth every 8 hours as needed for Nausea. 20 Tablet 3 Active Mirtazapine 7.5 MG Oral Tablet (Remeron) Take 1 Tablet by mouth at bedtime. 3 Active Diclofenac Sodium 1 % External Gel Apply topically to affected area. Daily as needed per patient Active BD Pen Needle Mini U/F 31G X 5 MM 3 Active LORazepam 0.5 MG Oral Tablet (Ativan) Take 1 Tablet by mouth every 8 hours as needed for Other (nausea). 6 Tablet 3 Active NovoLIN N 100 UNIT/ML Subcutaneous Suspension (insulin isophane human) Inject under the skin three times a day before meals. Active Aprepitant 80 MG Oral Capsule (Emend) TAKE 1 CAPSULE (80 MG TOTAL) BY MOUTH DAILY NEEDED (NAUSEA AND/OR VOMITING) 4 Active Sertraline HCl 100 MG Oral Tablet (Zoloft) Take 1 Tablet by mouth in the morning. Active Eliquis 5 MG Oral Tablet Take 1 Tablet by mouth in the morning and 1 Tablet before bedtime. 4 Active hydrALAZINE HCl 50 MG Oral Tablet (Apresoline) Take 1 Tablet by mouth in the morning and 1 Tablet at noon and 1 Tablet before bedtime. 4 Active Carvedilol 12.5 MG Oral Tablet (Coreg) Take 1 Tablet by mouth in the morning and 1 Tablet before bedtime. 4 Active Xphozah 30 MG Oral Tablet Take 1 Tablet by mouth 2 times a day with morning and evening meals. 4 Active Metoclopramide HCl 5 MG Oral Tablet (Reglan) Take 1 Tablet by mouth in the morning and 1 Tablet at noon and 1 Tablet in the evening and 1 Tablet before bedtime. 4 Active NovoLIN R FlexPen 100 UNIT/ML Injection Solution Pen-injector Inject under the skin. Sliding scale with meals 4 Active HYDROcodone-Acet aminophen 5-325 MG Oral Tablet 1 Tablet. 4 Active Warfarin Sodium 5 MG Oral Tablet (Coumadin)Indica tions:End stage renal disease on dialysis (HCC),History of DVT in adulthood,Single subsegmental pulmonary embolism without acute cor pulmonale (HCC),Anticoagul ation management encounter Take 1 Tablet by mouth every evening. As directed by Anticoagulation clinic 30 Tablet 5 4 Active Pantoprazole Sodium 40 MG Oral Tablet Delayed Release (Protonix) One tablet daily 1/2 hour before breakfast 180 Tablet 3 4 Active Pantoprazole Sodium 40 MG Oral Tablet Delayed Release (Protonix) Take 1 Tab by mouth 2 times a day. 60 Tab 1 1 024 Discontinued Hospital, Clinic, or Other Facility Administered Medication [...] as of this encounter (statuses as of 11/19/2023) Active Problems Problem Noted Date Diagnosed Date [...] compression fracture 03/15/2016 ETOH abuse 04/05/2012 Overview: [facility] Admission with DKA March 2012 [...] as of this encounter (statuses as of 11/19/2023) Resolved Problems Problem Noted Date Diagnosed Date [...] as of this encounter (statuses as of 11/19/2023) Immunizations Name Administration Dates Next Due COVID-19 mRNA, LNP-s, No Pre serve, 2-Dose Series (Moderna) 08/10/2020,07/17/2020 PPD 06/18/2009,04/03/2008 Pneumococcal Conjugate Vacci ne, 20-valent ([id number]) 10/20/2023(Deferred: Contraindication) Pneumococcal Polysaccharide PPV23 (Pneumovax) 04/05/2012,03/31/2007 [...] on file documented as of this encounter Last Filed Vital Signs Vital Sign Reading Time Taken Comments Blood Pressure 100/42 11/19/2023 9:32 AM EDT Pulse 74 11/19/2023 9:32 AM EDT Temperature 36.6 C (97.9 F) 11/19/2023 9:32 AM ED T Respiratory Rate - - Oxygen Saturation - - Inhaled Oxygen Concentration - - Weight 65.5 kg (144 lb 4.8 oz) 11/19/2023 9:32 A M EDT Height - - Body Mass Index 21.94 11/03/2023 8:34 AM EDT documented in this encounter Functional Status Functional Status Response [...] as of this encounter Progress Notes * Ximena Greenberg CRNP - 11/19/2023 9:40 AM EDT CC: f/u GERD, Gastroparesis after G-Poem HPI: Recall that Mr. Jorge Alberto De Los Santos is a 53 yr old male pt of Dr. Travon malik a hx of HTN, DM, prolonged QT, ESRD dx on dialysis who recently underwent G-Poem for gastroparesis. This, completed after following w [facility] and undergoing botox, and use of mirtazapine, compazine, emycin, Emend. He is happy w results of G-Poem. Now able to eat regular size meals and doesn't have nearly as much nauseaor bloating. GERD is much improved, no symptoms in at least the last week. No blood in BMs, weight is stable. Current GI Meds: Emend as needed (prescribed by [facility]). Hasn't taken since the G-Poem Zofran as needed (uses rarely) Pantoprazole 40mg BID - taking regularly G-POEM October 2023 EGD Jul 2023: - Normal esophagus. - A small amount of food (residue) in the stomach. - Severe pylorospasm was found. Injected with botulinum toxin. Dilated to 19 mm. - Normal duodenal bulb and second portion of the duodenum. - No specimens collected. EGD 2020: Severe thrush. Severe esophagitis. Mild stenosis of pylorus. 100 units Botox injected within 1-2 cm of the pylorus. Pylorus dilated to 15.5 mm with balloon. Colonoscopy 2022: - The entire examined colon is normal. Rectum was normal on entire inspection. Nothing found to support CT images of rectal thickening. - Internal hemorrhoids. - No specimens collected. EXAM: BP 100/42 | Pulse 74 | Temp 36.6 C (97.9 F) | Wt 65.5 kg (144 lb 4.8 oz) | BMI 21.94 kg/m | BSA 1.77 m GENERAL: 53 year old thin male well developed and well nourished in no acute distress SKIN: no rashes, ulcers, or spider angiomata HEENT: normocephalic, sclera clear, pharynx normal NECK: supple, no lymphadenopathy, no masses or thyroid enlargement LUNGS: clear to auscultation anterior and posterior HEART: regular rate & rhythm, no murmurs and no gallops ABDOMEN: normo-active bowel sounds, soft, non-tender, non-distended no masses, no hepatosplenomegaly, no rebound or guarding, no bruits EXTREMITIES: no palmar erythema, no edema, no skin discoloration, no clubbing, no cyanosis; using aknee rolling, recent foot procedure NEURO: no lateralizing findings, Sensory/Motor grossly normal IMPRESSION/RECOMMENDATIONS: 53 year old male with Gastroesophageal reflux disease, unspecified whether esophagitis present (Primary) - Pantoprazole Sodium 40 MG Oral Tablet Delayed Release (Protonix); One tablet daily 1/2 hour before breakfast (because minimal GERD, decrease to once daily by tapering off evening dose) Gastroparesis - resolved with G MIGUEL Recheck in GI yearly and prn. Follow Up: Return in about 1 year (around 11/18/2024). E-mail or call sooner if any new or worseningsymptoms. I spent a total of 25 minutes on the date of service in review of patient's record, and previously obtained information in person and appropriate medical visit, discussion and education of plan, withpatient and/or caregiver, placing orders for tests/referral/procedures as medically necessary and documentation of pertinent clinical information in patient's medical records for their visit today. Thank you for the opportunity to be involved in the care of this patient. RADHIKA Jay documented in this encounter Nursing Notes * Shari Brown LPN - 11/19/2023 9:31 AM EDT Chief Complaint Patient presents with Follow Up F/u GERD c/o of nausea today documented in this encounter Plan of Treatment Upcoming Encounters Date Type Department Care Team (Late st Contact Info) Description 11/19/2023 11:20 AM EDT Anticoagulation Pharmacy, [place] [address] [place] [address] [facility] [place] [facility] [address] [place] [address] Scheduled Procedures Name Priority Associated Diagnoses Date/Ti [...] as of this encounter Visit Diagnoses Diagnosis Gastroesophageal reflux disease, unspecified whether esophagitis present- Primary Gastroparesis documented in this encounter Advance Directives Documents on File Type Date Recorded Patient Dinkey Engineer Expl anation Power of Color Printer Operator 01/15/2021 POWER OF A TTORNEY * [...] Advance Directives occurred with: Patient Care Teams Paper Twister Relationship Specialty Start Date End Date Genet Cool MD [address] [place] [address] [place] [id number] PCP - General Internal Medicine 01/06/23 documented as of this encounter"
--- OUTSIDE RECORDS SUMMARY | 2023-12-06 13:31 | External Medical Summary | Summary of Care ---
Author Name Unknown Organization [facility] Address [address] [place] [address] Phone [phone] Care Team Providers Care Beck Tender Name Role Phone Genet Cool MD Primary Care Provid er Reason for Visit * Reason Onset Date Comments MyCode Nonconsent - Not interested at this time 11/26/2023 Encounter Details Date Type Department Care Team (Late st Contact Info) Description 11/26/2023 Orders Only Outcomes Research Department [address] [place], [place] [id number] Anju Pimentel CHRA MyCode Nonconsent Documentation Allergies Active Allergy Reactions Criticality Noted Date Comments Codeine Itching 05/24/2019 Promethazine Hcl Hives 10/19/2010 Shellfish-Derived Products Anaphylaxis High 04/26/20 18 documented as of this encounter (statuses as of 12/06/2023) Medications Medication Sig Dispensed Refills Start Date [...] mouth in the morning. 12/16/2018 Active B Upfnuyk-F-Mkmeo Acid (RENAL VITAMIN) 1 MG Capsule TAKE [...] as of this encounter (statuses as of 12/06/2023) Active Problems Problem Noted Date Diagnosed Date [...] compression fracture 03/15/2016 ETOH abuse 04/05/2012 Overview: [facility] Admission with DKA March 2012 [...] as of this encounter (statuses as of 12/06/2023) Resolved Problems Problem Noted Date Diagnosed Date [...] as of this encounter (statuses as of 12/06/2023) Immunizations Name Administration Dates Next Due COVID-19 mRNA, LNP-s, No Pre serve, 2-Dose Series (Moderna) 08/10/2020,07/17/2020 PPD 06/18/2009,04/03/2008 Pneumococcal Conjugate Vacci ne, 20-valent ([id number]) 10/20/2023(Deferred: Contraindication) Pneumococcal Polysaccharide PPV23 (Pneumovax) 04/05/2012,03/31/2007 [...] Care Team (Late st Contact Info) Description 12/09/2023 1:20 PM EDT Anticoagulation Pharmacy, [place] [address] [place] [facility] [place] [address] [facility] [address] [facility] [place] [address] Scheduled Procedures Name Priority Associated Diagnoses Date/Ti [...] Documents on File Type Date Recorded Patient Research Pharmacist Expl anation Power of Sand Slinger Operator 01/15/2021 POWER OF A TTORNEY * [...] Advance Directives occurred with: Patient Care Teams Beck Tender Relationship Specialty Start Date End Date Genet Cool MD [address] [place] [address] [place] [id number] PCP - General Internal Medicine 01/06/23 documented as of this encounter
--- OUTSIDE RECORDS SUMMARY | 2023-12-06 13:31 | External Medical Summary | Summary of Care ---
Author Name Unknown Organization [facility] Address [address] [place] [address] Phone [phone] Care Team Providers Care Slip Seat Coverer Name Role Phone Genet Cool MD Primary Care Provid er Reason for Visit * Reason Comments Dosage Adjustment In Person (Anticoag Cl inic) Encounter Details Date Type Department Care Team (Latest Contact Info) Description 12/03/2023 9:50 AM EDT Anticoagulation Pharmacy, [address] [address] [facility] [address] [place] [address] Anticoagulation management encounter*; End stage renal disease on dialysis ([facility]); Single subsegmental pulmonary embolism without acute cor pulmonale ([facility]); History of DVT in adulthood Allergies Active Allergy Reactions Criticality Noted Date Comments Codeine Itching 05/24/2019 Promethazine Hcl Hives 10/19/2010 Shellfish-Derived Products Anaphylaxis High 04/26/20 18 documented as of this encounter (statuses as of 12/03/2023) Medications Medication Sig Dispensed Refills Start Date End Date Status [facility] STRPIndications:DK A, type 1 ([facility]),DM type 1 causing renal disease, not at goal ([facility]) check your urine if you [...] mouth in the morning. 12/16/2018 Active B Aoqjowi-C-Bmwyg Acid (RENAL VITAMIN) 1 MG Capsule TAKE [...] as of this encounter (statuses as of 12/03/2023) Active Problems Problem Noted Date Diagnosed Date [...] 03/15/2016 ETOH abuse 04/05/2012 Overview: [facility] Admission with DKA March 2012 [...] as of this encounter (statuses as of 12/03/2023) Resolved Problems Problem Noted Date Diagnosed Date [...] as of this encounter (statuses as of 12/03/2023) Immunizations Name Administration Dates Next Due COVID-19 mRNA, LNP-s, No Pre serve, 2-Dose Series (Moderna) 08/10/2020,07/17/2020 PPD 06/18/2009,04/03/2008 Pneumococcal Conjugate Vacci ne, 20-valent ([id number]) 10/20/2023(Deferred: Contraindication) Pneumococcal Polysaccharide PPV23 (Pneumovax) 04/05/2012,03/31/2007 [...] this encounter Progress Notes * Kezia Hayden, [facility] - 12/03/2023 9:55 AM EDT Images from the original note were not included. Medication Therapy Disease Management - Anticoagulation Patient: Jorge Alberto De Los Santos | : 1970 Subjective Patient-Reported Symptoms: Patient Findings Negatives: Signs/symptoms of thrombosis, Signs/symptoms of bleeding, Change in health, Change in alcohol use, Change in activity, Upcoming invasive procedure, Missed doses, Extra doses, Change in medications, Change in diet/appetite, Bruising Objective Current Warfarin Dose As of 12/03/2023 Warfarin maintenance plan: 5 mg (5 mg x 1) every Mon, Fri; 2.5 mg (5 mg x 0.5) all other days INR Result As of 12/03/2023 INR goal: 2.0-3.0 INR used for dosin.6 (12/03/2023) Assessment & Plan Warfarin Plan As of 12/03/2023 Full warfarin instructions: 12/02: 7.5 mg; 12/03: 7.5 mg; Otherwise 5 mg every Mon, Wed, Fri; 2.5 mg all other days Next INR check: 12/09/2023 Repeat PT/INR in 5 day(s) Weekly dose: increased Additional Dosing Information: Description Dialysis MWF From TE 11/11/23: "Dialysis patient undergoing workup at [place] [facility] for possible kidney pancreas transplant with recent diagnosis of DVT. Currently on Eliquis. [place] [facility] requesting change from Eliquis to warfarin. His PCP works with [facility] but they can not see new patients until December. Will start transition in [facility] anti co[facility] at least for the time being and look eventuallyto transition to [facility] later in the summer" Kezia Hayden [facility] Clinical Pharmacist 12/03/2023, 9:55 AM documented in this encounter Plan of Treatment Upcoming Encounters Date Type Department Care Team (Late st Contact Info) Description 12/09/2023 1:20 PM EDT Anticoagulation Pharmacy, [place] [address] [address] [facility] [address] [address] Scheduled Procedures Name Priority Associated Diagnoses Date/Ti [...] Comments INR FINGERSTICK, POINT OF CARE STAT 12/03/2023 10:01 AM EDT End stage renal disease on dialysis (HCC) Single subsegmental pulmonary embolism without acute cor pulmonale (HCC) History of DVT in adulthood Anticoagulation management encounter documented in this encounter Results * INR FINGERSTICK, POINT OF CARE (12/03/2023 10:01 AM EDT) Fingerstick INR 1.6 INR 10:03 AM EDT [facility]- Blood 12/03/2023 10:0 1 AM EDT 12/03/2023 10:03 AM EDT Narrative [facility]- - 12/03/2023 10:03 AM EDT Therapeutic ranges for non-operative patients: Prophylaxsis/treatment of DVT: (Range:2.0-3.0) Treatment of pulmonary embolism:(Range:2.0-3.0) Prevention of systemic embolism from: -tissue heart valves -acute myocardial infarction -valvular heart disease -atrial fibrillation (Range: 2.0-3.0) Mechanical prosthetic valves: (Range: 2.5-3.5) Ben Mary Ann V, [facility] POINT OF CARE TE ST DOCKED DEVICE UNSOLICITED RESULTS Performing Organization Address City/State/[facility] Co de Phone Number [facility] [address] [place] [address] documented in this encounter Visit Diagnoses Diagnosis Anticoagulation management encounter- Primary Encounter for therapeutic drug monitoring End stage renal disease on dialysis (HCC) End stage renal disease Single subsegmental pulmonary embolism without acute cor pulmonale (HCC) History of DVT in adulthood documented in this encounter Advance Directives Documents on File Type Date Recorded Patient Amusement Ride Operator Expl anation Power of Strategic Marketing Manager 01/15/2021 POWER OF A TTORNEY * Full [...] Advance Directives occurred with: Patient Care Teams Slip Seat Coverer Relationship Specialty Start Date End Date Genet Cool MD [address] [place] [address] [place] [id number] PCP - General Internal Medicine 01/06/23 documented as of this encounter
--- OUTSIDE RECORDS SUMMARY | 2023-12-06 13:31 | External Medical Summary | Summary of Care ---
Author Name Unknown Organization [facility] Address [address] [place] [address] Phone [phone] Care Team Providers Care Optometry Teacher Name Role Phone Genet Cool MD Primary Care Provid er Reason for Visit * Reason Comments Dosage Adjustment In Person (Anticoag Cl inic) Encounter Details Date Type Department Care Team (Latest Contact Info) Description 11/26/2023 10:30 AM EDT Anticoagulation Pharmacy, [address] [address] [place] [facility] [address] [place] [address] Anticoagulation management encounter*; End stage renal disease on dialysis ([facility]); Single subsegmental pulmonary embolism without acute cor pulmonale ([facility]); History of DVT in adulthood Allergies Active Allergy Reactions Criticality Noted Date Comments Codeine Itching 05/24/2019 Promethazine Hcl Hives 10/19/2010 Shellfish-Derived Products Anaphylaxis High 04/26/20 18 documented as of this encounter (statuses as of 11/26/2023) Medications Medication Sig Dispensed Refills Start Date End Date Status [facility] STRPIndications:DK A, type 1 ([facility]),DM type 1 causing renal disease, not at goal ([facility]) check your urine if you [...] mouth in the morning. 12/16/2018 Active B Djdsfod-E-Ddgxg Acid (RENAL VITAMIN) 1 MG Capsule TAKE [...] compression fracture 03/15/2016 ETOH abuse 04/05/2012 Overview: [facility] Admission with DKA March 2012 DKA, [...] emergency 10/20/202010/25 Nausea and vomiting 11/22/2008 07/01/19 Overview: ICD-10 update of inactive term Diarrhea [...] PPD 06/18/2009,04/03/2008 Pneumococcal Conjugate Vacci ne, 20-valent ([id number]) 10/20/2023(Deferred: Contraindication) Pneumococcal Polysaccharide PPV23 (Pneumovax) 04/05/2012,03/31/2007 [...] this encounter Progress Notes * Kezia Hayden, [facility] - 11/26/2023 10:15 AM EDT Medication Therapy Disease Management - Anticoagulation Patient: Jorge Alberto De Los Santos | : 1970 Subjective Patient-Reported Symptoms: Patient Findings Negatives: Signs/symptoms of thrombosis, Signs/symptoms of bleeding, Change in health, Change in alcohol use, Change in activity, Upcoming invasive procedure, Missed doses, Extra doses, Change in medications, Change in diet/appetite, Bruising Objective Current Warfarin Dose As of 11/26/2023 Warfarin maintenance plan: No maintenance plan INR Result As of 11/26/2023 INR goal: 2.0-3.0 INR used for dosin.9 (11/26/2023) Assessment & Plan Warfarin Plan As of 11/26/2023 Full warfarin instructions: 5 mg every Mon, Fri; 2.5 mg all other days Next INR check: 12/03/2023 Repeat PT/INR in 1 week(s) Weekly dose: started today Additional Dosing Information: Description Dialysis MWF From TE 11/11/23: "Dialysis patient undergoing workup at [facility] for possible kidney pancreas transplant with recent diagnosis of DVT. Currently on Eliquis. [facility] requesting change from Eliquis to warfarin. His PCP works with [facility] but they can not see new patients until December. Will start transition in [facility] at least for the time being and look eventuallyto transition to [facility] later in the summer" Kezia Hayden [facility] Clinical Pharmacist 11/26/2023, 10:15 AM documented in this encounter Plan of Treatment Upcoming Encounters Date Type Department Care Team (Late st Contact Info) Description 12/03/2023 9:50 AM EDT [address] [address] [place] [address] [facility] [place] [id number] Scheduled Procedures Name Priority Associated Diagnoses Date/Ti [...] Comments INR FINGERSTICK, POINT OF CARE STAT 11/26/2023 10:34 AM EDT End stage renal disease on dialysis ([facility]CC) Single subsegmental pulmonary embolism without acute cor pulmonale (HCC) History of DVT in adulthood Anticoagulation management encounter documented in this encounter Results * INR FINGERSTICK, POINT OF CARE (11/26/2023 10:34 AM EDT) Fingerstick INR 2.9 INR 10:35 AM EDT [facility] Blood 11/26/2023 10:3 4 AM EDT 11/26/2023 10:35 AM EDT Narrative [facility] - 11/26/2023 10:35 AM EDT Therapeutic ranges for non-operative patients: Prophylaxsis/treatment of DVT: (Range:2.0-3.0) Treatment of pulmonary embolism:(Range:2.0-3.0) Prevention of systemic embolism from: -tissue heart valves -acute myocardial infarction -valvular heart disease -atrial fibrillation (Range: 2.0-3.0) Mechanical prosthetic valves: (Range: 2.5-3.5) Ben Mary Ann V, RP LAB POINT OF CARE TE ST DOCKED DEVICE UNSOLICITED RESULTS Performing Organization Address City/State/[facility] Co de Phone Number [facility] [address] [place] [phone] documented in this encounter Visit Diagnoses Diagnosis Anticoagulation management encounter- Primary Encounter for therapeutic drug monitoring End stage renal disease on dialysis (HCC) End stage renal disease Single subsegmental pulmonary embolism without acute cor pulmonale (HCC) History of DVT in adulthood documented in this encounter Advance Directives Documents on File Type Date Recorded Patient Physician Surgeon Expl anation Power of Doper 01/15/2021 POWER OF A TTORNEY * Full [...] Advance Directives occurred with: Patient Care Teams Optometry Teacher Relationship Specialty Start Date End Date Genet Cool MD [address] [place] [address] [place] [id number] PCP - General Internal Medicine 01/06/23 documented as of this encounter
--- NOTE | 2023-12-06 14:23 | Emergency Department Note ---
Impression & Plan Vomiting, Dialysis patient, Acute hyperglycemia, Acute hyponatremia, Elevated lactic acid level ED Provider Note NAME: JERARDO PEREZ AGE: 53 SEX: M : 1970 ARRIVES VIA: Ambulance INFORMANT: [Patient][family] ED PROVIDER(S): [Dev Morgan MD] CHIEF COMPLAINT: Hyperglycemia HISTORY OF PRESENT ILLNESS: The patient is a 53-year-old male with a history of gastroparesis. He is to receive dialysis Thursday and Thursday, he is next due tomorrow. The patient began vomiting today, he states he does have this happen from time to time because of gastroparesis. However, today he cannot stop vomiting and now his blood sugar is over 500. He has no abdominal pain, there has been no fever or chills, no cough, no shortness of breath. PMHx/PSHx/Social Hx: See Below PHYSICAL EXAM: GENERAL: Patient is in no acute distress. Actively vomiting. HEENT: No acute trauma, normocephalic atraumatic, mucous membranes moist, no nasal congestion. NECK: No stridor, no adenopathy, no meningismus, trachea is midline. LUNGS: Clear to auscultation bilaterally, no wheeze, no rhonchi, breath sounds equal. HEART: 2/6 systolic murmur heard best at the right sternal border, normal rate and rhythm. ABDOMEN: Soft, nontender, no peritonitis. EXTREMITIES: No cyanosis, full range of motion of all the joints without pain or difficulty. NEUROLOGIC: Oriented x 3, no acute motor or sensory deficits, no focal weakness. SKIN: No jaundice, no diaphoresis. DIFFERENTIAL DIAGNOSIS: Gastroparesis, dehydration, electrolyte imbalance, DKA, hyperglycemia, among others. EMERGENCY DEPARTMENT PROCEDURES: MEDICAL DECISION MAKING: There is no leukocytosis. A mild anemia was seen, this is baseline looking back at previous testing. There was a normal platelet count. VBG did not show acidosis making DKA unlikely. Sodium was low at 123. Creatinine and BUN were elevated consistent with his dialysis need. Glucose was quite high at over 800--the high glucose value is likely causing the lower sodium value.. Lactic acid level was elevated at 3.2, this lactic acid elevation is likely consistent with his hyperglycemia and dehydration rather than sepsis. There was no concerning liver enzyme elevation. Patient appeared to be in a euthyroid state. ECG showed a sinus rhythm with a first-degree AV block, no obvious ST elevation. Cardiac enzyme testing x 1 is not consistent with acute cardiac injury. Chest x-ray did not show pneumonia or CHF. On exam, the patient was actively vomiting. He was neurologically intact, he was an excellent historian. The patient was a difficult IV stick but eventually, an IV was placed. He was given a 500 cc saline bolus. He received 5 mg of IV Reglan, 0.5 mg of IV Ativan, he was given a bolus of IV insulin and placed on an insulin drip. He was given IV Benadryl. Patient is hyperglycemic, vomiting. He requires dialysis 3 times a week. Given his findings, given his presentation, he will require a hospital stay. He will need further IV insulin, slow hydration to improve his situation. I did speak with the patient and case management, the on-call hospitalist was consulted. Prior/Outside records/notes reviewed: Discharge summary note from 10/02/2023 discussing his presentation for edema and diagnosis of DVT. ECG per my interpretation: Indication was hyperglycemia. The ECG shows a sinus rhythm with a first-degree AV block. The rate is 77. There is some nonspecific ST change. The QTc is prolonged at 511. There is no acute ST elevation, no PVCs. Continuous Cardiac Monitoring per my interpretation: An order was placed for continuous cardiac monitoring. The monitor shows a rate of 75 with sinus rhythm with a further AV block. Imaging/x-ray results per my interpretation: Chest x-ray does not show CHF or pneumonia. Chronic Medical/Social conditions affecting care: Dialysis need. Care/Management discussed with: Case management, the on-call hospitalist. Level of care consideration(s): After review of the information above and other included data: --I believe the patient requires escalation of care to admission Critical Care Note: I have personally spent 42 minutes of critical care time in the direct management of this patient. This includes bedside care, interpretation of diagnostic studies, and testing, discussion with consultants, patient, and family members, and other required patient management activities. This 42 minutes is in excess of all separately billable procedures. DISPOSITION: Admission Past Med/Surg History Problem List (Updated 12/06/23 @ 18:09 by Dev Morgan MD) Elevated lactic acid level (Acute) Acute hyponatremia (Acute) Acute hyperglycemia (Acute) Dialysis patient (Acute) Vomiting (Acute) History of venous thromboembolism Neuropathy of right foot Metatarsal fracture Pain of right midfoot Anxiety Diabetic gastroparesis Hypertension ESRD (end stage renal disease) (Chronic) hemodialysis M,W,F (Follows with Dr. Lor Guadalupe; [facility]) Acute hyponatremia (Acute) Deep vein thrombosis (DVT) of right lower extremity (Acute) Hypertensive urgency (Acute) Hyperglycemia due to type 1 diabetes mellitus (Acute) History of pulmonary embolism 11/2020; unk etiology; was on warfarin (taken off 05/2021) 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, with long-term current use of insulin 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, with long-term current use of insulin (Acute) Pleural effusion, bilateral (Acute) Dialysis patient (Chronic) History of nephrolithiasis (Chronic) Diabetic retinopathy (Chronic) Chronic pleural effusion (Chronic) PleurX catheter placed 01/24/21--removed 07/2021 CAD (coronary artery disease) (Chronic) mild, non-obstructive CAD per 10/2018 cardiac cath> [facility] Lumbar radiculopathy (Chronic) Medical History Cardiomyopathy Personal history of diabetic foot ulcer Diabetic peripheral neuropathy associated with type 1 diabetes mellitus Cyclical vomiting syndrome Urolithiasis Junctional rhythm 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, with long-term current use of insulin Anemia of chronic disease Kidney stone on right side hx AV fistula left upper arm GERD (gastroesophageal reflux disease) Depression Surgical History History of colonoscopy S/P arteriovenous (AV) fistula creation History of cataract surgery History of esophagogastroduodenoscopy (EGD) (~03/08/20) History of open reduction and internal fixation (ORIF) procedure Nausea and vomiting after administration of anesthetic agent History of lithotripsy History of cardiac cath History of hip surgery H/O shoulder surgery History of appendectomy Family History Grandfather Myocardial infarction Grandfather (Maternal) Family history of diabetes mellitus Uncle Myocardial infarction Father Hypertension Mother Kidney stone Other No family history of adverse response to anesthesia Denies family history of Colon cancer Ovarian cancer Prostate cancer Breast cancer Social History Smoking Status: Never smoker Tobacco Type: Smokeless Tobacco (Dip or Chew) Second Hand Exposure: No; Do You Dip or Chew Tobacco: No (quit 2019); Hx Alcohol Use: No Hx Substance Use: No Preferred Language: Burmese Communication Ability: Effective Visual Impairment: No Limitations Hearing Ability: Normal Home And School Visitor Required: No Beliefs That Will Affect Care: None marital status: Current Living Situation: Parent Current Living Situation Comment: with rachele parents current occupational status: disabled How many Children do You have: 2 Feels Safe at Home: Yes Childhood Exposure to Second-Hand Smoke: Yes Diet: regular caffeine: Yes Dental Care, Regularly: No Physical Activity Frequency: 1-2 Times per Week Seatbelt Use: always Sunscreen Use: Yes Gender Identity: Male Assistive Devices: Cane and Walker Allergies Allergies Allergy/AdvReac Type Severity Reaction Status Date / Time shellfish derived Allergy Severe anaphylaxis Verified 12/06/23 17:16 codeine Allergy Intermediate Hives Verified 12/06/23 17:16 promethazine Allergy Intermediate itchy/hives Verified 12/06/23 17:16 Home Meds Home Medications Medication Instructions Recorded Confirmed acetaminophen 325 mg capsule 650 mg PO Q4H PRN Pain (Scale 09/28/20 12/06/23 Score 1-3) sertraline 100 mg tablet 100 mg PO QAM 12/29/21 12/06/23 sertraline 25 mg tablet 25 mg PO QAM 12/29/21 12/06/23 melatonin 1 mg tablet 4 mg PO HS PRN Sleep 09/18/22 12/06/23 midodrine 5 mg tablet 5 mg PO .COMPLEX 02/19/23 12/06/23 mirtazapine 7.5 mg tablet 7.5 mg PO HS 02/19/23 12/06/23 insulin glargine 100 unit/mL (3 20 unit subcut QAM 09/12/23 12/06/23 mL) subcutaneous pen (Basaglar KwikPen U-100 Insulin) insulin regular human 100 unit/mL 0 sliding scale dose subcut TIDM 09/12/23 12/06/23 (3 mL) subcutaneous pen (Novolin R FlexPen) amlodipine 10 mg tablet 10 mg PO DAILY 12/06/23 12/06/23 aprepitant 80 mg capsule 80 mg PO DAILY PRN NAUSEA/VOMITING 12/06/23 12/06/23 ascorbic acid (vitamin C) 500 mg 500 mg PO QAM 12/06/23 12/06/23 tablet,extended release (Vitamin C ER) cholecalciferol (vitamin D3) 50 50 mcg PO DAILY 12/06/23 12/06/23 mcg (2,000 unit) capsule (Vitamin D3) prochlorperazine maleate 5 mg 5 mg PO DIRECTED PRN 12/06/23 12/06/23 tablet NAUSEA/VOMITING sucroferric oxyhydroxide 500 mg 500 mg PO TIDM 12/06/23 12/06/23 chewable tablet (Velphoro) warfarin 5 mg tablet 5 mg PO QDD 12/06/23 12/06/23 Previous Rx's Medication Instructions Recorded atorvastatin 10 mg tablet 10 mg PO QAM #90 tabs 08/11/22 ondansetron HCl 4 mg tablet 8 mg (2 x 4 mg) PO Q4 PRN nausea 08/14/22 or vomiting #60 tabs carvedilol 12.5 mg tablet (Coreg) 12.5 mg PO BID #30 tabs 04/08/23 lorazepam 0.5 mg tablet 0.5 mg PO Q8H PRN severe nausea 04/24/23 #30 tabs pantoprazole 40 mg tablet,delayed 40 mg PO QAM #90 tabs 11/12/23 release (Protonix) Results & Data (ED) Vital Signs Vital Signs - 24 hr 12/06/23 13:36 12/06/23 15:21 12/06/23 15:24 Temperature 36.5 C Temperature Source Temporal Artery Scan Pulse Rate 75 76 Pulse Rate [Apical] 76 Respiratory Rate 14 22 Respiratory Effort / Characteristics Non-Labored Spontaneous Non-Labored Spontaneous Respiratory Depth Normal Normal Respiratory Pattern Regular Blood Pressure 203/100 H Blood Pressure [Right Arm] 194/87 H Blood Pressure Mean 134 Blood Pressure Mean [Right Arm] 122 Pulse Oximetry 100 99 Oxygen Delivery Method Room Air Room Air Sepsis Recent Fever Within 48 Hours No Sepsis New/Unexplained Change in Mental Status No Sepsis Action Taken by Nursing No Action Required 12/06/23 17:00 12/06/23 17:34 Temperature Temperature Source Pulse Rate 74 Pulse Rate [Apical] 74 Respiratory Rate 19 Respiratory Effort / Characteristics Non-Labored Spontaneous Respiratory Depth Normal Respiratory Pattern Regular Blood Pressure Blood Pressure [Right Arm] 188/83 H Blood Pressure Mean Blood Pressure Mean [Right Arm] 118 Pulse Oximetry 95 Oxygen Delivery Method Room Air Sepsis Recent Fever Within 48 Hours Sepsis New/Unexplained Change in Mental Status Sepsis Action Taken by Correction Medications Current Medication List: was personally reviewed by me Laboratory Data Attestation: I reviewed the patient's lab results. 12/06/23 14:49 12/06/23 14:10 Lab Results 12/06/23 12/06/23 12/06/23 Range/Units 13:42 14:10 14:20 WBC Cancelled RBC Cancelled Hgb Cancelled Hct Cancelled MCV Cancelled MCH Cancelled MCHC Cancelled RDW Std Deviation Cancelled RDW Coeff of Kami Cancelled Plt Count Cancelled MPV Cancelled Immature Gran % (Auto) Cancelled Neut % (Auto) Cancelled Lymph % (Auto) Cancelled Zavala % (Auto) Cancelled Eos % (Auto) Cancelled Baso % (Auto) Cancelled Neut # (Auto) Cancelled Lymph # (Auto) Cancelled Zavala # (Auto) Cancelled Eos # (Auto) Cancelled Baso # (Auto) Cancelled Immature Gran # (Auto) Cancelled Absolute Nucleated RBC Cancelled Nucleated RBC % (auto) Cancelled Neutrophils % (Manual) Cancelled Band Neutrophils % Cancelled Lymphocytes % (Manual) Cancelled Prolymphocyte % Cancelled Reactive Lymphs % (Man) Cancelled Monocytes % (Manual) Cancelled Eosinophils % (Manual) Cancelled Basophils % (Manual) Cancelled Metamyelocytes % (Man) Cancelled Myelocytes % (Man) Cancelled Promyelocytes % (Man) Cancelled Blast Cells % (Manual) Cancelled Plasma Cell % (Manual) Cancelled Other Cells % Cancelled Nucleated RBC % Cancelled Neutrophils # (Manual) Cancelled Band Neutrophils # Cancelled Total Absolute Neuts Cancelled Lymphocytes # (Manual) Cancelled Prolymphocyte # Cancelled Reactive Lymphs # Cancelled Total Abs Lymphocytes Cancelled Monocytes # (Manual) Cancelled Eosinophils # (Manual) Cancelled Basophils # (Manual) Cancelled Metamyelocytes # (Man) Cancelled Myelocytes # (Manual) Cancelled Promyelocytes # (Man) Cancelled Blast Cells # (Man) Cancelled Plasma Cell # (Manual) Cancelled Other Cells # Cancelled Nucleated RBCs # (Man) Cancelled Hypersegmented Neuts Cancelled Hyposegmented Neuts Cancelled Hypogranular Neuts Cancelled Large Granular Lymphs Cancelled # Lrg Granular Lymphs Cancelled Hairy Cells Cancelled Smudge Cells Cancelled Toxic Granulation Cancelled Toxic Vacuolation Cancelled Dohle Bodies Cancelled Jennifer Rods Cancelled Platelet Estimate Cancelled Hypogranular Platelets Cancelled Giant Platelets Cancelled Platelet Satelliting Cancelled RBC Morphology Cancelled Polychromasia Cancelled Hypochromasia Cancelled Poikilocytosis Cancelled Basophilic Stippling Cancelled Anisocytosis Cancelled Microcytosis Cancelled Macrocytosis Cancelled Spherocytes Cancelled Pappenheimer Bodies Cancelled Sickle Cells Cancelled Target Cells Cancelled Tear Drop Cells Cancelled Ovalocytes Cancelled Stomatocytes Cancelled Avila-Deputy Bodies Cancelled Echinocytes Cancelled Acanthocytes (Spur) Cancelled Rouleaux Cancelled RBC Agglutinates Cancelled Schistocytes Cancelled Sezary Cell Cancelled VBG pH 7.43 H (7.36-7.41) VBG pCO2 30 L (38-50) mmHg VBG pO2 80 mmHg VBG HCO3 20 mmol/L VBG O2 Saturation 96.5 % VBG Base Excess -3.3 mEq/L Sodium 123 L (136-145) mmol/L Potassium 4.5 (3.5-5.1) mmol/L Chloride 79 L (98-107) mmol/L Carbon Dioxide 19 L (21-32) mmol/L Anion Gap 25 H (3-11) BUN 60 H (6-23) mg/dl Creatinine 7.26 H* (0.6-1.4) mg/dl Est Cr Clr Drug Dosing 10.3 ml/min Est GFR ( Amer) 9.0 ml/min Est GFR (Non-Af Amer) 7.8 ml/min BUN/Creatinine Ratio 8.3 L (10-20) Glucose 830 H* (70-99(Fasting)) mg/dl POC Glucose > 600 H* (70-99) mg/dl Lactate (0.4-2.0) mmol/L Calcium 8.4 L (8.6-10.3) mg/dl Magnesium 2.4 (1.7-2.4) mg/dl Total Bilirubin 0.6 (0.2-1.0) mg/dl AST 20 (13-39) U/L ALT 30 (7-52) U/L Alkaline Phosphatase 180 H (34-104) U/L Troponin I High Sens 11.7 (0-20) pg/ml Total Protein 8.1 (6.0-8.3) gm/dl Albumin 4.6 (3.4-5.0) gm/dl Globulin 3.5 (2.5-4.0) gm/dl Albumin/Globulin Ratio 1.3 (0.9-2) TSH 2.068 (0.300-4.500) uIu/ml Blood Parasites ID Cancelled 12/06/23 12/06/23 Range/Units 14:49 16:45 WBC 7.33 RBC 3.45 L Hgb 11.3 L Hct 32.8 L MCV 95.1 MCH 32.8 MCHC 34.5 RDW Std Deviation 48.1 H RDW Coeff of Kami 13.8 Plt Count 251 MPV 9.7 Immature Gran % (Auto) 0.5 Neut % (Auto) 84.1 Lymph % (Auto) 11.2 Zavala % (Auto) 3.5 Eos % (Auto) 0.3 Baso % (Auto) 0.4 Neut # (Auto) 6.16 Lymph # (Auto) 0.82 L Zavala # (Auto) 0.26 Eos # (Auto) 0.02 Baso # (Auto) 0.03 Immature Gran # (Auto) 0.04 Absolute Nucleated RBC Nucleated RBC % (auto) Neutrophils % (Manual) Band Neutrophils % Lymphocytes % (Manual) Prolymphocyte % Reactive Lymphs % (Man) Monocytes % (Manual) Eosinophils % (Manual) Basophils % (Manual) Metamyelocytes % (Man) Myelocytes % (Man) Promyelocytes % (Man) Blast Cells % (Manual) Plasma Cell % (Manual) Other Cells % Nucleated RBC % Neutrophils # (Manual) Band Neutrophils # Total Absolute Neuts Lymphocytes # (Manual) Prolymphocyte # Reactive Lymphs # Total Abs Lymphocytes Monocytes # (Manual) Eosinophils # (Manual) Basophils # (Manual) Metamyelocytes # (Man) Myelocytes # (Manual) Promyelocytes # (Man) Blast Cells # (Man) Plasma Cell # (Manual) Other Cells # Nucleated RBCs # (Man) Hypersegmented Neuts Hyposegmented Neuts Hypogranular Neuts Large Granular Lymphs # Lrg Granular Lymphs Hairy Cells Smudge Cells Toxic Granulation Toxic Vacuolation Dohle Bodies Jennifer Rods Platelet Estimate Hypogranular Platelets Giant Platelets Platelet Satelliting RBC Morphology Polychromasia Hypochromasia Poikilocytosis Basophilic Stippling Anisocytosis Microcytosis Macrocytosis Spherocytes Pappenheimer Bodies Sickle Cells Target Cells Tear Drop Cells Ovalocytes Stomatocytes Avila-Deputy Bodies Echinocytes Acanthocytes (Spur) Rouleaux RBC Agglutinates Schistocytes Sezary Cell VBG pH (7.36-7.41) VBG pCO2 (38-50) mmHg VBG pO2 mmHg VBG HCO3 mmol/L VBG O2 Saturation % VBG Base Excess mEq/L Sodium (136-145) mmol/L Potassium (3.5-5.1) mmol/L Chloride (98-107) mmol/L Carbon Dioxide (21-32) mmol/L Anion Gap (3-11) BUN (6-23) mg/dl Creatinine (0.6-1.4) mg/dl Est Cr Clr Drug Dosing ml/min Est GFR ( Amer) ml/min Est GFR (Non-Af Amer) ml/min BUN/Creatinine Ratio (10-20) Glucose (70-99(Fasting)) mg/dl POC Glucose 533 H* (70-99) mg/dl Lactate 3.2 H* (0.4-2.0) mmol/L Calcium (8.6-10.3) mg/dl Magnesium (1.7-2.4) mg/dl Total Bilirubin (0.2-1.0) mg/dl AST (13-39) U/L ALT (7-52) U/L Alkaline Phosphatase (34-104) U/L Troponin I High Sens (0-20) pg/ml Total Protein (6.0-8.3) gm/dl Albumin (3.4-5.0) gm/dl Globulin (2.5-4.0) gm/dl Albumin/Globulin Ratio (0.9-2) TSH (0.300-4.500) uIu/ml Blood Parasites ID Administered Medications Insulin Human Regular 250 (units/ Sodium Chloride) 250 mls @ 1.2 mls/hr IV .Q24H JACKI; Protocol Stop: 01/05/24 15:44 Last Titration: 12/06/23 17:06 Dose: 1.2 units/hr, 1.2 mls/hr Documented By: ERICH Co-signed By: YAMEL Admin: 12/06/23 15:45 Dose: 1 units/hr, 1 mls/hr Documented By: ERICH Co-signed By: MARÍA ELENA Discontinued Medications Diphenhydramine HCl (Diphenhydramine 50 Mg/Ml Vial) 12.5 mg IV NOW STA Stop: 12/06/23 14:24 Last Admin: 12/06/23 15:00 Dose: 12.5 mg Documented By: TA Sodium Chloride (Nss) 500 mls @ 999 mls/hr IV .Q31M ONE Stop: 12/06/23 14:48 Last Infusion: 12/06/23 16:07 Dose: Infused Documented By: Admin: 12/06/23 15:00 Dose: 999 mls/hr Documented By: TA Insulin Human Regular (Novolin-R Insulin Per Unit Charge) 10 units IV NOW STA Stop: 12/06/23 15:12 Last Admin: 12/06/23 15:27 Dose: Not Given Documented By: ERICH Insulin Human Regular (Novolin-R Bolus From Bag) 6 units IV ONE ONE Stop: 12/06/23 15:46 Last Admin: 12/06/23 15:48 Dose: 6 units Documented By: ERICH Co-signed By: MARÍA ELENA Lorazepam (Lorazepam 1 Mg/1 Ml Syr Ed Inj Use) 0.5 mg IV ONE STA Stop: 12/06/23 15:20 Last Admin: 12/06/23 15:28 Dose: 0.5 mg Documented By: ERICH Metoclopramide HCl (Metoclopramide Hcl Inj 5 Mg/Ml 2 Ml Vial) 5 mg IV ONE ONE Stop: 12/06/23 14:19 Last Admin: 12/06/23 15:00 Dose: 5 mg Documented By: TA Ondansetron HCl (Ondansetron Inj 2 Mg/Ml 2 Ml Vial) 4 mg IV NOW STA Stop: 12/06/23 14:18 Last Admin: 12/06/23 14:42 Dose: Not Given Documented By: TA Ondansetron HCl (Ondansetron 4 Mg Od Tab) Confirm Administered Dose 4 mg .ROUTE .STK-MED ONE Stop: 12/06/23 14:33 Last Admin: 12/06/23 17:26 Dose: Not Given Documented By: [facility] Imaging Data Radiologist's Impression: Chest X-Ray 12/06/23 13:52 XR chest 1V portable CLINICAL HISTORY: weakness COMPARISON STUDY: Chest CT August 09, 2023. Chest radiograph September 28, 2023. FINDINGS: Lung volumes are normal. Lungs are clear. There is no pneumothorax or pleural effusion. Cardiac size is normal. Mediastinal contours are normal. There is no evidence for pulmonary edema. IMPRESSION: No acute cardiopulmonary findings. No change in appearance of the chest. ACT 112: Negative or not required by law. Electronically signed by: Gabino Cool M.D. 12/06/2023 3:54 PM Discharge Plan Visit Data Chief Complaint: Hyperglycemia ED Provider: Dev Morgan Discharge Problem: Vomiting, Dialysis patient, Acute hyperglycemia, Acute hyponatremia, Elevated lactic acid level Patient Disposition: Admitted As Inpatient Condition: Fair Forms Stand Alone Forms: [facility] Prescriptions Prescriptions: No Action acetaminophen 325 mg capsule 650 mg PO Q4H PRN (Reason: Pain (Scale Score 1-3)) atorvastatin 10 mg tablet 10 mg PO QAM Qty: 90 1RF pantoprazole [Protonix] 40 mg tablet,delayed release (DR/EC) 40 mg PO QAM Qty: 90 1RF lorazepam 0.5 mg tablet 0.5 mg PO Q8H PRN (Reason: severe nausea) Qty: 30 0RF mirtazapine 7.5 mg tablet 7.5 mg PO HS midodrine 5 mg tablet 5 mg PO .COMPLEX Rx Instructions: 5 mg orally as needed at dialysis; ondansetron HCl 4 mg tablet 8 mg PO Q4 PRN (Reason: nausea or vomiting) Qty: 60 2RF melatonin 1 mg tablet 4 mg PO HS PRN (Reason: Sleep) sertraline 100 mg tablet 100 mg PO QAM Rx Instructions: TOTAL DOSE 125 MG--TAKES WITH 25 MG TAB. UNABLE TO VERIFY sertraline 25 mg tablet 25 mg PO QAM Rx Instructions: TOTAL DOSE 125 MG--TAKES WITH 100 MG TAB. UNABLE TO VERIFY THIS MED. carvedilol [Coreg] 12.5 mg tablet 12.5 mg PO BID Qty: 30 3RF Rx Instructions: PER PT MED LIST 25 MG BID, PER EXT MED HX 12.5 MG BID, LAST FILLED 07/02/23 FOR 15 DAYS/30 TABS. must administer with a meal/food prochlorperazine maleate 5 mg Tablet 5 mg PO DIRECTED PRN (Reason: NAUSEA/VOMITING) amlodipine 10 mg tablet 10 mg PO DAILY Rx Instructions: PER EXT MED HX. PER PT'S LIST 25 MG DAILY. warfarin 5 mg tablet 5 mg PO QDD ascorbic acid (vitamin C) [Vitamin C] 500 mg Tablet Extended Release 500 mg PO QAM aprepitant 80 mg capsule 80 mg PO DAILY PRN (Reason: NAUSEA/VOMITING) cholecalciferol (vitamin D3) [Vitamin D3] 50 mcg (2,000 unit) Capsule 50 mcg PO DAILY Velphoro 500 mg Tablet,Chewable 500 mg PO TIDM Novolin R FlexPen 100 unit/mL (3 mL) insulin pen 0 sliding scale dose subcut TIDM Patient Comments: 9 units Rx Instructions: 1 UNIT PER 12 GRAMS CARB insulin glargine [Basaglar KwikPen U-100 Insulin] 100 unit/mL (3 mL) insulin pen 20 unit SUBCUT QAM Referrals Referrals: Genet Cool MD [Primary Care Provider] - Discharge Problem: Vomiting Qualifiers: Vomiting type: unspecified Nausea presence: with nausea Qualified Code(s): R 11.2 - Nausea with vomiting, unspecified
[2023-12-06 14:29] LABS: Base Excess VBG -3.3 mEq/L; HCO3 VBG 20 mmol/L; Oxygen Saturation VBG 96.5 %; PCO2 VBG 30 mmHg (38-50); PO2 VBG 80 mmHg; pH VBG 7.43 (7.36-7.41)
[2023-12-06] MEDS: ONDANSETRON INJ 2 MG/ML 2 ML VIAL IV STA (14:42)
[2023-12-06 14:43] LABS: Albumin Globulin Ratio 1.3 (0.9-2); Albumin Level 4.6 gm/dl (3.4-5.0); BUN Creatinine Ratio 8.3 (10-20); Bilirubin,Total 0.6 mg/dl (0.2-1.0); Calcium 8.4 mg/dl (8.6-10.3); Creatinine Clr Calc Pharmacy 10.3 ml/min; Est GFR (Non-African American) 7.8 ml/min; Globulin 3.5 gm/dl (2.5-4.0); Magnesium 2.4 mg/dl (1.7-2.4); Potassium 4.5 mmol/L (3.5-5.1); Total Protein 8.1 gm/dl (6.0-8.3)
[2023-12-06 14:45] LABS: Troponin I High Sensitivity 11.7 pg/ml (0-20)
[2023-12-06 14:53] LABS: Thyroid Stimulating Hormone 2.068 uIu/ml (0.300-4.500)
[2023-12-06] MEDS: SODIUM CHLORIDE 0.9% 500 ML IV ONE (15:00)
[2023-12-06] MEDS: diphenhydrAMINE 50 MG/ML VIAL IV STA (15:00)
[2023-12-06] MEDS: METOCLOPRAMIDE HCL INJ 5 MG/ML 2 ML VIAL IV ONE (15:00)
[2023-12-06 15:08] LABS: Basophils # (auto) 0.03 K/uL (0.00-0.20); Basophils % (auto) 0.4 %; Eosinophils # (auto) 0.02 K/uL (0.00-0.50); Eosinophils % (auto) 0.3 %; Hematocrit (blood only) 32.8 % (42.0-52.0); Hemoglobin 11.3 g/dl (14.0-18.0); Immature Granulocytes # (auto) 0.04 K/uL (0.01-0.20); Immature Granulocytes % (auto) 0.5 %; Lymphocytes # (auto) 0.82 K/uL (1.20-3.40); Lymphocytes % (auto) 11.2 %; Mean Corpuscular Hemoglobin 32.8 pg (25.0-34.0); Mean Corpuscular Hgb Conc 34.5 g/dL (32.0-36.0); Mean Corpuscular Volume 95.1 fL (80.0-100.0); Mean Platelet Volume 9.7 fL (9.4-12.4); Monocytes # (auto) 0.26 K/uL (0.11-0.59); Monocytes % (auto) 3.5 %; Neutrophils # (auto) 6.16 K/uL (1.40-6.50); Neutrophils % (auto) 84.1 %; Platelet Count 251 K/uL (130-400); RDW Coefficient of Variation 13.8 % (11.5-14.5); RDW Standard Deviation 48.1 fL (36.4-46.3); Red Blood Count 3.45 M/uL (4.70-6.10); White Blood Count 7.33 K/ul (4.8-10.8)
[2023-12-06] MEDS: NovoLIN-R INSULIN PER UNIT CHARGE IV STA (15:27)
[2023-12-06] MEDS: LORazepam 1 MG/1 ML SYR ED Inj Use IV STA (15:28)
[2023-12-06] MEDS ORDERED: STAT IV Infusion **Titration per Protocol STA ×2 (15:31→17:48)
[2023-12-06] MEDS ORDERED: GLUCAGON FOR INJ 1 MG VIAL IM PRN (15:45)
[2023-12-06] MEDS ORDERED: GLUCOSE 10 TAB/TUBE PO PRN ×2 (15:45→16:49)
[2023-12-06] MEDS ORDERED: GLUCOSE 40% GEL 15 GM TUBE PO PRN ×2 (15:45→16:49)
[2023-12-06] MEDS ORDERED: DEXTROSE 50% 50 ML SYRINGE IV PRN ×2 (15:45→16:49)
[2023-12-06] MEDS ORDERED: CARBOHYDRATES FOR HYPOGLYCEMIA PO PRN ×2 (15:45→16:49)
[2023-12-06] MEDS: INSULIN REGULAR 250 UNITS in SODIUM CHLORIDE 0.9% 247.5 ML IV SCH (15:45)
[2023-12-06] MEDS: NovoLIN-R BOLUS FROM BAG IV ONE (15:48)
--- NOTE | 2023-12-06 15:57 | XRay Report ---
XR chest 1V portable CLINICAL HISTORY: weakness COMPARISON STUDY: Chest CT August 09, 2023. Chest radiograph September 28, 2023. FINDINGS: Lung volumes are normal. Lungs are clear. There is no pneumothorax or pleural effusion. Car diac size is normal. Mediastinal contours are normal. There is no evidence for pulmonary edema. IMPRESSION: No acute cardiopulmonary findings. No change in appearance of the chest. ACT 112: Negative or not required by law. Electronically signed by: Gabino Cool M.D. 12/06/2023 3:54 PM
[2023-12-06] MEDS ORDERED: ACETAMINOPHEN 325 MG TAB PO PRN (16:49)
[2023-12-06] MEDS ORDERED: GLUCAGON FOR INJ 1 MG VIAL SQ PRN (16:49)
[2023-12-06] MEDS ORDERED: INSULIN ASPART PER UNIT CHARGE SC STA (16:58)
[2023-12-06] MEDS: ONDANSETRON 4 MG OD TAB ONE (17:26)
[2023-12-06] MEDS ORDERED: PHARMACY GLYCEMIC MGMT CONSULT PRN (17:48)
[2023-12-06] MEDS ORDERED: PROCHLORPERAZINE 5 MG in SYRINGE 4 ML IV PRN (17:49)
[2023-12-06] MEDS ORDERED: INSULIN REGULAR 250 UNITS in SODIUM CHLORIDE 0.9% 247.5 ML IV SCH (18:00)
[2023-12-06 18:44] LABS: Calcium 8.6 mg/dl (8.6-10.3); Creatinine Clr Calc Pharmacy 9.6 ml/min; Est GFR (African American) 8.3 ml/min; Est GFR (Non-African American) 7.2 ml/min; Magnesium 2.4 mg/dl (1.7-2.4); Phosphorus 3.7 mg/dl (2.5-4.9)
[2023-12-06] MEDS: SODIUM CHLORIDE 0.9% 1,000 ML IV SCH ×2 (18:45→20:31)
--- NOTE | 2023-12-06 18:45 | History & Physical Report ---
Date of Service December 06, 2023 Assessment & Plan (1) Acute hyperglycemia: Plan: Started on IV insulin, follow DKA protocol He will be admitted to intensive care unit (2) Metatarsal fracture: Plan: Reports fracture 10 weeks ago Consider repeating x-ray (3) Diabetic gastroparesis: Plan: Supportive care IV metoclopramide (4) ESRD (end stage renal disease): Plan: Should have dialysis on Thursday Consult scientific research associate (5) Hypertension: Plan: Elevated systolic blood pressure IV hydralazine as needed (6) History of venous thromboembolism: Plan: Unclear if he is on anticoagulation, consider starting IV heparin History of Present Illness Chief Complaint: Intractable nausea vomiting Primary Care Provider: Genet Cool MD he patient is a 53-year-old male with a history of gastroparesis. He is to receive dialysis Thursday and Thursday, he is next due tomorrow. The patient began vomiting today, he states he does have this happen from time to time because of gastroparesis. However, today he cannot stop vomiting and now his blood sugar is over 800, he was started on IV Insulin, he was given Ativan Benadryl and metoclopramide for his intractable nausea and vomiting, repeated blood sugar still in the 500s He has no abdominal pain, there has been no fever or chills, no cough, no shortness of breath, he has a very prolonged QTc. He injected some insulin this morning Allergies Allergy/AdvReac Type Severity Reaction Status Date / Time shellfish derived Allergy Severe anaphylaxis Verified 12/06/23 17:16 codeine Allergy Intermediate Hives Verified 12/06/23 17:16 promethazine Allergy Intermediate itchy/hives Verified 12/06/23 17:16 Home Medications Medication Instructions Recorded Confirmed Type acetaminophen 325 mg capsule 650 mg PO Q4H PRN Pain (Scale 09/28/20 12/06/23 History Score 1-3) sertraline 100 mg tablet 100 mg PO QAM 12/29/21 12/06/23 History sertraline 25 mg tablet 25 mg PO QAM 12/29/21 12/06/23 History atorvastatin 10 mg tablet 10 mg PO QAM #90 tabs 08/11/22 12/06/23 Rx ondansetron HCl 4 mg tablet 8 mg (2 x 4 mg) PO Q4 PRN nausea 08/14/22 12/06/23 Rx or vomiting #60 tabs melatonin 1 mg tablet 4 mg PO HS PRN Sleep 09/18/22 12/06/23 History midodrine 5 mg tablet 5 mg PO .COMPLEX 02/19/23 12/06/23 History mirtazapine 7.5 mg tablet 7.5 mg PO HS 02/19/23 12/06/23 History carvedilol 12.5 mg tablet (Coreg) 12.5 mg PO BID #30 tabs 04/08/23 12/06/23 Rx lorazepam 0.5 mg tablet 0.5 mg PO Q8H PRN severe nausea 04/24/23 12/06/23 Rx #30 tabs insulin glargine 100 unit/mL (3 20 unit subcut QAM 09/12/23 12/06/23 History mL) subcutaneous pen (Basaglar KwikPen U-100 Insulin) insulin regular human 100 unit/mL 0 sliding scale dose subcut TIDM 09/12/23 12/06/23 History (3 mL) subcutaneous pen (Novolin R FlexPen) pantoprazole 40 mg tablet,delayed 40 mg PO QAM #90 tabs 11/12/23 12/06/23 Rx release (Protonix) amlodipine 10 mg tablet 10 mg PO DAILY 12/06/23 12/06/23 History aprepitant 80 mg capsule 80 mg PO DAILY PRN NAUSEA/VOMITING 12/06/23 12/06/23 History ascorbic acid (vitamin C) 500 mg 500 mg PO QAM 12/06/23 12/06/23 History tablet,extended release (Vitamin C ER) cholecalciferol (vitamin D3) 50 50 mcg PO DAILY 12/06/23 12/06/23 History mcg (2,000 unit) capsule (Vitamin D3) prochlorperazine maleate 5 mg 5 mg PO DIRECTED PRN 12/06/23 12/06/23 History tablet NAUSEA/VOMITING sucroferric oxyhydroxide 500 mg 500 mg PO TIDM 12/06/23 12/06/23 History chewable tablet (Velphoro) warfarin 5 mg tablet 5 mg PO QDD 12/06/23 12/06/23 History Past Med/Surg History Problem List (Updated 12/06/23 @ 18:09 by Dev Morgan MD) Elevated lactic acid level (Acute) Acute hyponatremia (Acute) Acute hyperglycemia (Acute) Dialysis patient (Acute) Vomiting (Acute) History of venous thromboembolism Neuropathy of right foot Metatarsal fracture Pain of right midfoot Anxiety Diabetic gastroparesis Hypertension ESRD (end stage renal disease) (Chronic) hemodialysis M,W,F (Follows with Dr. Lor Guadalupe; [facility]) Acute hyponatremia (Acute) Deep vein thrombosis (DVT) of right lower extremity (Acute) Hypertensive urgency (Acute) Hyperglycemia due to type 1 diabetes mellitus (Acute) History of pulmonary embolism 11/2020; unk etiology; was on warfarin (taken off 05/2021) 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, with long-term current use of insulin 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, with long-term current use of insulin (Acute) Pleural effusion, bilateral (Acute) Dialysis patient (Chronic) History of nephrolithiasis (Chronic) Diabetic retinopathy (Chronic) Chronic pleural effusion (Chronic) PleurX catheter placed 01/24/21--removed 07/2021 CAD (coronary artery disease) (Chronic) mild, non-obstructive CAD per 10/2018 cardiac cath> [facility] Lumbar radiculopathy (Chronic) Medical History Cardiomyopathy Personal history of diabetic foot ulcer Diabetic peripheral neuropathy associated with type 1 diabetes mellitus Cyclical vomiting syndrome Urolithiasis Junctional rhythm 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, with long-term current use of insulin Anemia of chronic disease Kidney stone on right side hx AV fistula left upper arm GERD (gastroesophageal reflux disease) Depression Surgical History History of colonoscopy S/P arteriovenous (AV) fistula creation History of cataract surgery History of esophagogastroduodenoscopy (EGD) (~03/08/20) History of open reduction and internal fixation (ORIF) procedure Nausea and vomiting after administration of anesthetic agent History of lithotripsy History of cardiac cath History of hip surgery H/O shoulder surgery History of appendectomy Family History Grandfather Myocardial infarction Grandfather (Maternal) Family history of diabetes mellitus Uncle Myocardial infarction Father Hypertension Mother Kidney stone Other No family history of adverse response to anesthesia Denies family history of Colon cancer Ovarian cancer Prostate cancer Breast cancer Social History Smoking Status: Never smoker Tobacco Type: Smokeless Tobacco (Dip or Chew) Second Hand Exposure: No; Do You Dip or Chew Tobacco: No (quit 2019); Hx Alcohol Use: No Hx Substance Use: No Preferred Language: Czech Communication Ability: Effective Visual Impairment: No Limitations Hearing Ability: Normal House Father Required: No Beliefs That Will Affect Care: None marital status: Current Living Situation: Parent Current Living Situation Comment: with rachele parents current occupational status: disabled How many Children do You have: 2 Feels Safe at Home: Yes Childhood Exposure to Second-Hand Smoke: Yes Diet: regular caffeine: Yes Dental Care, Regularly: No Physical Activity Frequency: 1-2 Times per Week Seatbelt Use: always Sunscreen Use: Yes Gender Identity: Male Assistive Devices: Cane and Walker Review of Systems Review of Systems: All systems reviewed & are unremarkable except as noted in Subjective Physical Exam Physical Exam: GENERAL: Patient is in no acute distress. Actively vomiting. HEENT: No acute trauma, normocephalic atraumatic, mucous membranes moist, no nasal congestion. NECK: No stridor, no adenopathy, no meningismus, trachea is midline. LUNGS: Clear to auscultation bilaterally, no wheeze, no rhonchi, breath sounds equal. HEART: 2/6 systolic murmur heard best at the right sternal border, normal rate and rhythm. ABDOMEN: Soft, nontender, no peritonitis. EXTREMITIES: No cyanosis, full range of motion of all the joints without pain or difficulty. NEUROLOGIC: Oriented x 3, no acute motor or sensory deficits, no focal weakness. SKIN: No jaundice, no diaphoresis. Results & Data Results & Data Vital Signs (Past 12 Hours) Vital Signs Temp Pulse Pulse Resp BP BP Pulse Ox 12/06/23 17:36 79 22 100 12/06/23 17:34 74 12/06/23 17:30 199/88 H 12/06/23 17:00 74 19 188/83 H 95 12/06/23 15:24 76 22 194/87 H 99 12/06/23 15:21 76 12/06/23 13:36 36.5 C 75 14 203/100 H 100 O2 Del Method 12/06/23 17:36 12/06/23 17:34 12/06/23 17:30 12/06/23 17:00 Room Air 12/06/23 15:24 Room Air 12/06/23 15:21 12/06/23 13:36 Room Air PG Care Time/CCT Total # of Minutes Spent Total Time Spent with Patient: Total time spent is greater than 50% in coordination of care (as documented) at patient's floor/unit and/or counseling patient: Coding Level of Care Code 19862 INT INP/OBS CARE 375MIN Diagnoses Acute hyperglycemia R73.9 Metatarsal fracture S92.309A Diabetic gastroparesis E11.43; K31.84 ESRD (end stage renal disease) N18.6 Hypertension I10 Hypertension type: unspecified History of venous thromboembolism Z86.718 (5) Hypertension Hypertension type: unspecified Qualified Code(s): I10 - Essential (primary) hypertension
[2023-12-06] MEDS: INSULIN ASPART PER UNIT CHARGE SC SCH (18:46)
[2023-12-06] MEDS ORDERED: MIDODRINE HCL 2.5 MG TAB PO PRN (18:58)
[2023-12-06] MEDS ORDERED: MELATONIN 3 MG TAB PO PRN (19:09)
[2023-12-06 19:19] LABS: INR 2.2 (0.9-1.1); Prothrombin Time 21.9 Seconds (9.0-12.0)
[2023-12-06] MEDS: METOCLOPRAMIDE HCL INJ 5 MG/ML 2 ML VIAL IV SCH (19:22)
[2023-12-06] MEDS: hydrALAZINE HCL 20 MG/ML VIAL IV PRN (20:44)
[2023-12-06] MEDS: hydrALAZINE TAB 50 MG TAB PO SCH (20:46)
[2023-12-06] MEDS: MIRTAZAPINE TAB 15 MG TAB PO SCH (20:47)
[2023-12-06] MEDS ORDERED: INSULIN ASPART PER UNIT CHARGE SC SCH ×2 (21:00)
[2023-12-06] MEDS ORDERED: LANTUS PER UNIT CHARGE SQ SCH (21:00)
[2023-12-06] MEDS: LORazepam 0.5 MG TAB PO PRN (22:03)
[2023-12-06] MEDS: D5W AND NSS 1,000 ML IV SCH (22:32)
--- NOTE | 2023-12-06 22:50 | Electrocardiogram Report ---
Test Reason : Blood Pressure : / mmHG Vent. Rate : 077 BPM Atrial Rate : 077 BPM P-R Int : 246 ms QRS Dur : 106 ms QT Int : 452 ms P-R-T Axes : 056 -08 021 degrees QTc Int : 511 ms Sinus rhythm with 1st degree A-V block Possible Left atrial enlargement Prolonged QT Abnormal ECG When compared with ECG of 19-SEP-2023 15:09, T wave inversion no longer evident in Inferior leads Confirmed by Travon Ayala ([id number]) on 12/06/2023 10:49:47 PM Referred By: Confirmed By:Travon Ayala
[2023-12-06 23:38] LABS: BUN Creatinine Ratio 7.7 (10-20); Calcium 7.5 mg/dl (8.6-10.3); Creatinine Clr Calc Pharmacy 10.1 ml/min; Est GFR (African American) 8.1 ml/min; Magnesium 2.1 mg/dl (1.7-2.4); Phosphorus 4.2 mg/dl (2.5-4.9); Potassium 3.8 mmol/L (3.5-5.1)
[2023-12-07 02:46] LABS: Creatinine Clr Calc Pharmacy 11.4 ml/min; Est GFR (African American) 9.4 ml/min; Est GFR (Non-African American) 8.1 ml/min; Magnesium 1.9 mg/dl (1.7-2.4); Phosphorus 3.9 mg/dl (2.5-4.9); Potassium 3.4 mmol/L (3.5-5.1)
[2023-12-07] MEDS: LORazepam 0.5 MG TAB SL PRN (06:12)
--- NOTE | 2023-12-07 08:00 | Nephrology Consultation ---
Date of Consultation December 07, 2023 Assessment & Plan (1) Dialysis patient: on MWF HD via AVF; left 2 of last 3 txs > 1 gm over target weight despite increasing target weight > may relate to large fluid intake/severe thirst w/ elevated BG in this anuric pt >HD today > long tx 4.5 hrs d/t labile BP w/ (for him) aggressive UF target 3L keep sbp > 110 and w/ midodrine prn -3K bath pending today's labs (2) Acute hyperglycemia: per primary service (3) Uncontrolled stage 2 hypertension: markedly uncontrolled BP > high BG will make pt thirsty > volume overload BP very labile and can have severe orthostatic sx -cont OP BP meds but would not take coreg while NPO given emesis -cont midodrine PRN pre HD (4) Cyclical vomiting syndrome: per primary service (5) Renal osteodystrophy: w/ recent foot fracture > fragile bones so MICHAEL care important takes Xphozah 30 mg bid, fosrenol 1000/500, calcium acetate 2 per OP records > have ordered these >no binders while NPO >he may need to bring binders from home History of Present Illness Reason for Consultation: esrd on HD Requesting Physician: Dr Allen Attending Physician: Mireille Ponce MD History of Present Illness 53 y/o M whom I'm asked to see for dialysis needs was admitted last evening for hyperglycemia and intractable vomiting. PMH includes ESRD on in center HD, cyclic vomiting syndrome, type I DM w/ proliferative retinopathy, nonocclusive CAD,GERD, HTN w/ labile BP and autonomic dysfunction, nephrolithiasis, and anemia of chronic disease. He's been hospitalized here multiple times in the past few months for intractable n/v related to gastroparesis/CVS. Past chronic L pleural effusion managed Jan 2021-Jun 2021 w/ pleurex catheter; also has remote hx of PE recently started back on AC; hx of Covid 07/2021. He dialyzes under my care MWF via AVF at [facility]. He was last admitted here in September with RLE occlusive DVT and multiple R metatarsal fractures/Charcot variant fracture, under the care of Dr Mccallum. Started back on eliquis that admission. He is adherent w/ his HD treatments and does not shorten or miss; he does often struggle with excessive IDWG and high phosphorus. His cc at this time is mainly fatigue. Denies sob, cough, orthopnea; denies chills or subjective F; no current issues w/ abd pain, n/v/dry heaving; stable chronic loose stools; no uncontrolled musculoskeletal pain, no focal numbness/weakness, no confusion; no rash; no chest pain or palpitations. Allergies Allergy/AdvReac Type Severity Reaction Status Date / Time shellfish derived Allergy Severe anaphylaxis Verified 12/06/23 17:16 codeine Allergy Intermediate Hives Verified 12/06/23 17:16 promethazine Allergy Intermediate itchy/hives Verified 12/06/23 17:16 Home Medications Medication Instructions Recorded Confirmed Type acetaminophen 325 mg capsule 650 mg PO Q4H PRN Pain (Scale 09/28/20 12/06/23 History Score 1-3) sertraline 100 mg tablet 100 mg PO QAM 12/29/21 12/06/23 History sertraline 25 mg tablet 25 mg PO QAM 12/29/21 12/06/23 History atorvastatin 10 mg tablet 10 mg PO QAM #90 tabs 08/11/22 12/06/23 Rx ondansetron HCl 4 mg tablet 8 mg (2 x 4 mg) PO Q4 PRN nausea 08/14/22 12/06/23 Rx or vomiting #60 tabs melatonin 1 mg tablet 4 mg PO HS PRN Sleep 09/18/22 12/06/23 History midodrine 5 mg tablet 5 mg PO .COMPLEX 02/19/23 12/06/23 History mirtazapine 7.5 mg tablet 7.5 mg PO HS 02/19/23 12/06/23 History carvedilol 12.5 mg tablet (Coreg) 12.5 mg PO BID #30 tabs 04/08/23 12/06/23 Rx lorazepam 0.5 mg tablet 0.5 mg PO Q8H PRN severe nausea 04/24/23 12/06/23 Rx #30 tabs insulin glargine 100 unit/mL (3 20 unit subcut QAM 09/12/23 12/06/23 History mL) subcutaneous pen (Basaglar KwikPen U-100 Insulin) insulin regular human 100 unit/mL 0 sliding scale dose subcut TIDM 09/12/23 12/06/23 History (3 mL) subcutaneous pen (Novolin R FlexPen) pantoprazole 40 mg tablet,delayed 40 mg PO QAM #90 tabs 11/12/23 12/06/23 Rx release (Protonix) amlodipine 10 mg tablet 10 mg PO DAILY 12/06/23 12/06/23 History aprepitant 80 mg capsule 80 mg PO DAILY PRN NAUSEA/VOMITING 12/06/23 12/06/23 History ascorbic acid (vitamin C) 500 mg 500 mg PO QAM 12/06/23 12/06/23 History tablet,extended release (Vitamin C ER) cholecalciferol (vitamin D3) 50 50 mcg PO DAILY 12/06/23 12/06/23 History mcg (2,000 unit) capsule (Vitamin D3) prochlorperazine maleate 5 mg 5 mg PO DIRECTED PRN 12/06/23 12/06/23 History tablet NAUSEA/VOMITING sucroferric oxyhydroxide 500 mg 500 mg PO TIDM 12/06/23 12/06/23 History chewable tablet (Velphoro) warfarin 5 mg tablet 5 mg PO QDD 12/06/23 12/06/23 History Patient History Medical History ESRD (end stage renal disease) hemodialysis M,W,F (Follows with Dr. Lor Guadalupe; [facility]) Cardiomyopathy Personal history of diabetic foot ulcer Diabetic peripheral neuropathy associated with type 1 diabetes mellitus Cyclical vomiting syndrome Urolithiasis Junctional rhythm 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, with long-term current use of insulin Anemia of chronic disease Kidney stone on right side hx AV fistula left upper arm GERD (gastroesophageal reflux disease) Depression Surgical History History of colonoscopy S/P arteriovenous (AV) fistula creation left arm History of cataract surgery History of esophagogastroduodenoscopy (EGD) (~03/08/20) History of open reduction and internal fixation (ORIF) procedure right hip Nausea and vomiting after administration of anesthetic agent History of lithotripsy History of cardiac cath x2---07/28/23 @ [facility], no stents--per pt done for transplant list and 10/2018 @ [facility] (no stents) History of hip surgery left HIP ARTHROSCOPY H/O shoulder surgery RIGHT History of appendectomy Family History Grandfather Myocardial infarction Grandfather (Maternal) Family history of diabetes mellitus Uncle Myocardial infarction Father Hypertension Mother Kidney stone Other No family history of adverse response to anesthesia Denies family history of Colon cancer Ovarian cancer Prostate cancer Breast cancer Social History Smoking Status: Never smoker Tobacco Type: Smokeless Tobacco (Dip or Chew) Second Hand Exposure: No; Do You Dip or Chew Tobacco: No; Hx Alcohol Use: No Hx Substance Use: No Preferred Language: Japanese Communication Ability: Effective Visual Impairment: No Limitations Hearing Ability: Normal Dry House Operator Required: No Beliefs That Will Affect Care: None marital status: Current Living Situation: Parent Current Living Situation Comment: Lives with parents current occupational status: disabled How many Children do You have: 2 Feels Safe at Home: Yes Childhood Exposure to Second-Hand Smoke: Yes Diet: regular caffeine: Yes Dental Care, Regularly: No Physical Activity Frequency: 1-2 Times per Week Seatbelt Use: always Sunscreen Use: Yes Gender Identity: Male Assistive Devices: None Review of Systems 2 Review of Systems: All systems reviewed & are unremarkable except as noted in HPI & below Physical Exam 2 Constitutional: well developed, well nourished and + frail appearing; no acute distress Eyes: EOM intact bilaterally ENMT: Ears: no external ear abnormality Nose: no external nose abnormality Mouth: + dry oral mucous membranes Neck: no nuchal rigidity Respiratory: normal respiratory effort Auscultation: + diminished lung sounds Cardiovascular: Rate/Rhythm: + irregularly irregular Extremities: + AV fistula (LUE + t/b); no edema Gastrointestinal (Abdomen): Inspection/Auscultation: normal bowel sounds P ercussion/Palpation: abdomen soft; abdomen nontender Musculoskeletal: Extremities: strength 5/5 throughout Skin: no rashes, warm and dry Neurologic: spicer, fluent speech, no tremor Psychiatric: Orientation: alert and oriented x 3 Speech: normal rate/rhythm/volume of speech Results & Data Vital Signs (Past 12 Hours) Vital Signs Temp Pulse Pulse Resp BP Pulse Ox O2 Del Method 12/07/23 07:00 82 12/07/23 03:37 36.6 C 77 18 196/72 H 97 Room Air 12/06/23 23:07 36.7 C 76 18 157/64 H 96 Room Air 12/06/23 21:35 74 12/06/23 20:42 181/74 H Laboratory Results 12/06/23 14:49 12/07/23 17:56 Diagnostic Findings CXR no acute cardiopulmonary findings
[2023-12-07] MEDS ORDERED: SODIUM CHLORIDE 0.9% 1,000 ML IV PRN (08:08)
[2023-12-07] MEDS ORDERED: MIDODRINE HCL 2.5 MG TAB PO PRN (08:24)
[2023-12-07] MEDS ORDERED: NON-FORMULARY MEDICATION (Insulin Glargine [Basaglar Kwikpen U-100 Insulin] 100 unit/mL (3 SQ SCH (09:00)
[2023-12-07 10:20] LABS: Calcium 7.6 mg/dl (8.6-10.3); Magnesium 2.1 mg/dl (1.7-2.4); Potassium 3.7 mmol/L (3.5-5.1)
[2023-12-07] MEDS: HEPARIN SOD (PORCINE) 1000 UNIT/ML IV ONE (10:34)
[2023-12-07] MEDS: HEPARIN SOD (PORCINE) 1000 UNIT/ML IV SCH (10:34)
[2023-12-07 10:36] LABS: BUN Creatinine Ratio 7.5 (10-20); Creatinine Clr Calc Pharmacy 9.8 ml/min; Est GFR (African American) 7.8 ml/min; Est GFR (Non-African American) 6.7 ml/min; Phosphorus 5.4 mg/dl (2.5-4.9)
[2023-12-07 11:09] LABS: Estimated Average Glucose 220 mg/dl; Hemoglobin A1C 9.3 % (4.5-5.6)
[2023-12-07] MEDS: LANTUS PER UNIT CHARGE SC ONE (11:13)
--- NOTE | 2023-12-07 13:50 | Pharmacy Report ---
Pharmacy Glycemic Short Note 2 - Date of Service December 07, 2023 - Glycemic Short BSG Results (Last 24 hours): 12/06/23 12/06/23 12/06/23 13:42 14:10 16:45 Glucose 830 H* POC Glucose > 600 H* 533 H* 12/06/23 12/06/23 12/06/23 18:06 18:26 19:24 Glucose 434 H* POC Glucose 429 H* 353 H* 12/06/23 12/06/23 12/06/23 20:29 21:26 22:25 Glucose POC Glucose 273 H 256 H 212 H 12/06/23 12/06/23 12/07/23 22:59 23:27 00:28 Glucose 211 H POC Glucose 202 H 205 H 12/07/23 12/07/23 12/07/23 01:29 02:06 02:28 Glucose 703 H* POC Glucose 197 H 208 H 12/07/23 12/07/23 12/07/23 03:15 03:29 04:32 Glucose 208 H POC Glucose 216 H 220 H 12/07/23 12/07/23 12/07/23 05:30 06:09 06:34 Glucose 219 H POC Glucose 228 H 223 H 12/07/23 12/07/23 12/07/23 08:35 10:29 11:44 Glucose POC Glucose 234 H 148 H 116 H 12/07/23 12/07/23 12:04 12:23 Glucose POC Glucose 115 H 124 H OUTPATIENT ANTIDIABETIC REGIMEN: * Per most recent endocrine note: * Basaglar 19 units SC qAM * Novolin R TIDM (carb ratio of 15, CF of 40) * Patient's A1c = 9.3% on 12/07/23 * However, this result is likely somewhat unreliable in ESRD patients d/t int eractions between the A1c analyzing technique and high levels of urea in ESRD, reduced RBC life span, iron deficiency anemia, and EPO administration. HbA1c > 7.5% in ESRD patient may overestimate the extent of hyperglycemia in ESRD patients. ASSESSMENT: * GERBER is a 53 year old male with T1DM, ESRD on HD, and gastroparesis who is well known to pharmacy glycemic consult due to frequent readmissions and generally labile blood sugars while hospitalized. * Patient presented with hyperglycemia on 12/05 and was successfully treated with IV insulin infusion * Discussed with hospitalist today and will transition to SC basal/bolus regimen * Historically, patient is very prone to hypoglycemia with basal doses near outpatient ones - will be conservative with initial basal dose. * Okay with elevated blood sugars today to decrease risk of hypoglycemia with more aggressive regimen * Hemodialysis ordered for today PLAN FOR INPATIENT GLYCEMIC CONTROL: * Basal insulin * Lantus 10 units SC x 1 * Reassess in AM * Bolus insulin * NovoLog per scale ACHS or Q6hrs while NPO * Goal Range: Low 120 mg/dL - High 160 mg/dL * Correction Factor: 40 mg/dL/unit * Nutritional / Prandial insulin per carb ratio of 1 unit per 15 grams CHO consumed
--- NOTE | 2023-12-07 14:42 | Hospitalist Progress Note ---
Date of Service December 07, 2023 Assessment & Plan (1) Acute hyperglycemia: Plan: Started on IV insulin, follow DKA protocol A1c 9.3 - but less accurate with dialysis Pharmacy glycemic consult -Transition to basal/bolus regiment this afternoon Patient has very labile sugars and hx of issues with hypoglycemia (2) Diabetic gastroparesis: Plan: Supportive care - home meds aprepitant, lorazepam, prochlorperazine IV metoclopramide (3) Metatarsal fracture: Plan: Reports fracture 10 weeks ago Consider repeating x-ray (4) ESRD (end stage renal disease): Plan: Dialysis MWF Consult mandarin tutor - continue binders - continue OP HTN meds (5) Hypertension: Plan: Home regimen - hydralzine TID, Coreg BID and amlodipine Continue as BP allows (6) History of venous thromboembolism: Plan: On coumadin - follows with [facility], pt reports INR goal 2-3 INR today 2.2 AM INR Plan Chronic stable conditions: * Anxiety/depression - continue Zoloft * HLD - continue statin Dispo: continued inpatient stay DVT proh: Warfarin Admission and Anticipated Discharge Date Admission Date: December 06, 2023 Supervising Physician Co-Signing Physician Notes PA Supervision Note: I did not personally see or examine the patient today, but I verified all julien points of CAROL Lindsay's assessment and plan with the following exceptions/additions: None Subjective Patient seen during dialysis, reported fatigue. Denies nausea or abdominal pain, says he is ready to try a diet. Reports nause and vomiting at home leading to elevated sugars reports INR goal 2-3 Review of Systems Review of Systems: All systems reviewed & are unremarkable except as noted in Subjective Physical Exam Physical Exam: General: NAD, VS as above - lying in dialysis bed Resp: normal respiratory effort, lungs clear to auscultation CV: RRR, + murmur Abd: soft, non tender, Extremities: Moves all extremities, no edema Neuro: A&O x3, Results & Data Results & Data Vital Signs (Past 12 Hours) Vital Signs Temp Pulse Pulse Pulse Resp BP BP 12/07/23 14:00 77 146/50 H 12/07/23 13:30 76 112/40 L 12/07/23 13:00 77 154/56 H 12/07/23 12:30 76 152/49 H 12/07/23 12:00 76 142/56 H 12/07/23 11:30 79 163/54 H 12/07/23 11:00 82 140/63 12/07/23 10:30 79 187/64 H 12/07/23 10:00 79 175/53 H 12/07/23 09:39 81 165/62 H 12/07/23 09:31 36.5 C 82 12/07/23 08:04 36.8 C 82 20 145/52 H 12/07/23 07:00 82 12/07/23 03:37 36.6 C 77 18 196/72 H Pulse Ox O2 Del Method 12/07/23 14:00 12/07/23 08:04 97 Room Air 12/07/23 07:00 12/07/23 03:37 97 Room Air Laboratory Results CBC, chemistry, A1c, phos, mag and PG Care Time/CCT Total # of Minutes Spent Total Time Spent with Patient: Total time spent is greater than 50% in coordination of care (as documented) at patient's floor/unit and/or counseling patient: Coding Level of Care Code 55213 SUB INP/OBS CARE 3/50MIN Diagnoses Acute hyperglycemia R73.9 Diabetic gastroparesis E11.43; K31.84 Metatarsal fracture S92.309A ESRD (end stage renal disease) N18.6 Hypertension I10 Hypertension type: unspecified History of venous thromboembolism Z86.718 (5) Hypertension Hypertension type: unspecified Qualified Code(s): I10 - Essential (primary) hypertension
[2023-12-07] MEDS: SERTRALINE HCL 100 MG TABLET PO SCH (15:14)
[2023-12-07] MEDS: SERTRALINE HCL 50 MG TABLET PO SCH (15:15)
[2023-12-07] MEDS: carvediloL 6.25 MG TAB PO SCH (16:57)
[2023-12-07] MEDS: WARFARIN SOD 5 MG TAB PO SCH (16:57)
[2023-12-07] MEDS: INSULIN ASPART PER UNIT CHARGE SC SCH (17:51)
[2023-12-07 18:39] LABS: BUN Creatinine Ratio 4.2 (10-20); Calcium 8.2 mg/dl (8.6-10.3); Creatinine Clr Calc Pharmacy 24.2 ml/min; Est GFR (African American) 23.4 ml/min; Est GFR (Non-African American) 20.2 ml/min; Magnesium 1.9 mg/dl (1.7-2.4); Phosphorus 2.6 mg/dl (2.5-4.9); Potassium 3.7 mmol/L (3.5-5.1)
--- NOTE | 2023-12-07 19:40 | Dialysis Progress Note ---
Date of Service December 07, 2023 Assessment & Plan (1) Dialysis patient: Plan: on MWF HD via [facility]; left 2 of last 3 OP txs > 1 gm over target weight despite increasing target weight > may relate to large fluid intake/severe thirst w/ elevated BG in this anuric pt >HD today > long tx 4.5 hrs d/t labile BP w/ (for him) aggressive UF target 3L keep sbp > 110 and w/ midodrine prn >> he tolerated 3L UF and had no need for midodrine, though BP post tx on lower side -3K bath pending today's labs (2) Uncontrolled stage 2 hypertension: Plan: markedly uncontrolled BP > high BG will make pt thirsty > volume overload BP very labile and can have severe orthostatic sx and w/ marked hypotension post HD -would not take coreg while NPO given emesis -cont midodrine PRN pre HD -given post procedure hypotension (after HD) >> put on hold hydralazine -put hold parameter on amlodipine > hold for SBP <110 -no FR and back on regular DM tnow >> OK to cont w/o FR for now given lower BP after HD (3) Renal osteodystrophy: Plan: w/ recent foot fracture > fragile bones so MICHAEL care important takes Xphozah 30 mg bid, fosrenol 1000/500, calcium acetate 2 /1 per OP records > have ordered these >no binders while NPO >he will need to bring binders (fosrenol, xphozah) from home > did d/w pharmacy who will coordinate w/ pt >>added renal diet to diet orders but FR for now as above (4) Cyclical vomiting syndrome: Plan: per primary service (5) Acute hyperglycemia: Plan: per primary service Admission and Anticipated Discharge Date Admission Date: December 06, 2023 Subjective seen on dialysis treatment at about 1045; no c/o cramping, no current n/v, ongoing ++fatigue; no orthopnea or sob; no uncontrolled pain Review of Systems Review of Systems: All systems reviewed & are unremarkable except as noted in Subjective Physical Exam Constitutional: well developed, well nourished and + frail appearing; no acute distress Eyes: EOM intact bilaterally ENMT: Ears: no external ear abnormality Nose: no external nose abnormality Mouth: + dry oral mucous membranes Neck: no nuchal rigidity Respiratory: normal respiratory effort Auscultation: + diminished lung sounds Cardiovascular: Rate/Rhythm: + irregularly irregular Extremities: + AV fistula (LUE + t/b); no edema Gastrointestinal (Abdomen): Inspection/Auscultation: normal bowel sounds Percussion/Palpation: abdomen soft; abdomen nontender Musculoskeletal: Extremities: strength 5/5 throughout Skin: no rashes, warm and dry Psychiatric: Orientation: alert and oriented x 3 Speech: normal rate/rhythm/volume of speech Results & Data Vital Signs (Past 12 Hours) Vital Signs Temp Pulse Pulse Pulse Resp BP BP 12/07/23 17:54 79 12/07/23 15:22 36.8 C 77 19 100/49 L 12/07/23 14:38 37.2 C 79 152/41 H 12/07/23 14:00 77 146/50 H 12/07/23 13:30 76 112/40 L 12/07/23 13:00 77 154/56 H 12/07/23 12:30 76 152/49 H 12/07/23 12:00 76 142/56 H 12/07/23 11:30 79 163/54 H 12/07/23 11:00 82 140/63 12/07/23 10:30 79 187/64 H 12/07/23 10:00 79 175/53 H 12/07/23 09:39 81 165/62 H 12/07/23 09:31 36.5 C 82 12/07/23 08:04 36.8 C 82 20 145/52 H Pulse Ox O2 Del Method 12/07/23 17:54 12/07/23 15:22 98 Room Air 12/07/23 14:38 12/07/23 14:00 12/07/23 13:30 12/07/23 13:00 12/07/23 12:30 12/07/23 12:00 12/07/23 11:30 12/07/23 11:00 12/07/23 10:30 12/07/23 10:00 12/07/23 09:39 12/07/23 09:31 12/07/23 08:04 97 Room Air Laboratory Results reviewed
[2023-12-07] MEDS ORDERED: CALCIUM ACETATE 667 MG CAP/TAB PO PRN (19:53)
[2023-12-08] MEDS: amLODIPine BESYLATE 5 MG TAB PO SCH (08:11)
[2023-12-08] MEDS: ATORVASTATIN 10 MG TAB PO SCH (08:11)
[2023-12-08] MEDS: CALCIUM ACETATE 667 MG CAP/TAB PO SCH (08:11)
[2023-12-08 08:22] LABS: INR 2.8 (0.9-1.1); Prothrombin Time 27.7 Seconds (9.0-12.0)
[2023-12-08 08:46] LABS: Calcium 7.7 mg/dl (8.6-10.3); Magnesium 2.1 mg/dl (1.7-2.4)
[2023-12-08] MEDS: LANTUS PER UNIT CHARGE SC SCH (08:49)
--- NOTE | 2023-12-08 09:25 | Pharmacy Report ---
Pharmacy Glycemic Short Note 2 - Date of Service December 08, 2023 - Glycemic Short BSG Results (Last 24 hours): 12/07/23 12/07/23 12/07/23 06:09 10:29 11:44 Glucose 219 H POC Glucose 148 H 116 H 12/07/23 12/07/23 12/07/23 12:04 12:23 13:32 Glucose POC Glucose 115 H 124 H 111 H 12/07/23 12/07/23 12/07/23 15:11 17:05 17:56 Glucose 329 H* POC Glucose 135 H 235 H 12/07/23 12/08/23 20:08 07:49 Glucose POC Glucose 178 H 204 H OUTPATIENT ANTIDIABETIC REGIMEN: * Per most recent endocrine note: * Basaglar 19 units SC qAM * Novolin R TIDM (carb ratio of 15, CF of 40) * Patient's A1c = 9.3% on 12/07/23 * However, this result is likely somewhat unreliable in ESRD patients d/t interactions between the A1c analyzing technique and high levels of urea in ESRD, reduced RBC life span, iron deficiency anemia, and EPO administration. HbA1c > 7.5% in ESRD patient may overestimate the extent of hyperglycemia in ESRD patients. ASSESSMENT: 12/08/23: * Blood sugars trended up post-dialysis and post gtt transition, but overall reasonable * Fasting blood sugar of 204 mg/dL this morning - will increase basal insulin * Patient previously hypoglycemic with basal doses near reported outpatient ones 12/07/23: * GERBER is a 53 year old male with T1DM, ESRD on HD, and gastroparesis who is well known to pharmacy glycemic consult due to frequent readmissions and generally labile blood sugars while hospitalized. * Patient presented with hyperglycemia on 12/05 and was successfully treated with IV insulin infusion * Discussed with hospitalist today and will transition to SC basal/bolus regimen * Historically, patient is very prone to hypoglycemia with basal doses near outpatient ones - will be conservative with initial basal dose. * Okay with elevated blood sugars today to decrease risk of hypoglycemia with more aggressive regimen * Hemodialysis ordered for today PLAN FOR INPATIENT GLYCEMIC CONTROL: * Basal insulin * Lantus 13 units SC daily * Reassess in AM * Bolus insulin * NovoLog per scale ACHS or Q6hrs while NPO * Goal Range: Low 120 mg/dL - High 160 mg/dL * Correction Factor: 40 mg/dL/unit * Nutritional / Prandial insulin per carb ratio of 1 unit per 15 grams CHO consumed
[2023-12-08 09:48] LABS: BUN Creatinine Ratio 5.1 (10-20); Phosphorus 5.1 mg/dl (2.5-4.9)
--- NOTE | 2023-12-08 11:03 | Nephrology Progress Note ---
Date of Service December 08, 2023 Assessment & Plan (1) Dialysis patient: Plan: on MWF HD via AVF; left 2 of last 3 OP txs [employer] > 1 gm over target weight despite increasing target weight > may relate to large fluid intake/severe thirst w/ elevated BG in this anuric pt >>had routine HD yesterday w/ 3L UF which was successful; BP improved. >>next HD in AM whether as inpatient or outpatient (2) Uncontrolled stage 2 hypertension: Plan: markedly uncontrolled BP > high BG will make pt thirsty > volume overload BP very labile and can have severe orthostatic sx and w/ marked hypotension post HD -resumed all routine OP BP meds > amlodipine, hydralazine, coreg -ordered 1.2 L FR for this anuric pt -cont midodrine PRN pre HD (3) Renal osteodystrophy: Plan: w/ recent foot fracture > fragile bones so MICHAEL care important takes Xphozah 30 mg bid, fosrenol 1000/500, calcium acetate 2 / per OP records >on calcium acetate now >family today to bring binders (fosrenol, xphozah) from home > pharmacy has coordinated w/ pt >>cont renal diet (4) Cyclical vomiting syndrome: Plan: per primary service (5) Acute hyperglycemia: Plan: per primary service Admission and Anticipated Discharge Date Admission Date: December 06, 2023 Subjective no interval events except some lower BP yesterday after tx which had no sx. feels well today; BP rebounding. no n/v, no sob, no cramps; BG improved Review of Systems 2 Review of Systems: All systems reviewed & are unremarkable except as noted in Subjective Physical Exam 2 Constitutional: well developed, well nourished and + frail appearing; no acute distress Eyes: EOM intact bilaterally ENMT: Ears: no external ear abnormality Nose: no external nose abnormality Mouth: + dry oral mucous membranes Neck: no nuchal rigidity Respiratory: normal respiratory effort Auscultation: + diminished lung sounds Cardiovascular: Rate/Rhythm: + irregularly irregular Heart Sounds: + murmur Extremities: + AV fistula (LUE + t/b); no edema Gastrointestinal (Abdomen): Inspection/Auscultation: normal bowel sounds P ercussion/Palpation: abdomen soft; abdomen nontender Musculoskeletal: Extremities: strength 5/5 throughout Skin: no rashes, warm and dry Psychiatric: Orientation: alert and oriented x 3 Speech: normal rate/rhythm/volume of speech Results & Data Vital Signs (Past 12 Hours) Vital Signs Temp Pulse Pulse Resp BP Pulse Ox O2 Del Method 12/08/23 10:50 36.7 C 73 19 138/69 97 Room Air 12/08/23 10:00 Room Air 12/08/23 07:34 73 12/08/23 07:15 36.7 C 74 17 125/52 L 97 Room Air 12/08/23 02:16 36.6 C 67 18 107/58 L 97 Room Air 12/07/23 22:58 37.2 C 73 18 89/36 L 97 Room Air Laboratory Results 12/06/23 14:49 12/08/23 07:35
--- NOTE | 2023-12-08 12:13 | Discharge Summary ---
Discharge Summary Date of Service December 08, 2023 Principal Dx & Hospital Course #1 = Principal Diagnosis (1) Acute hyperglycemia: DKA Started on IV insulin, follow DKA protocol A1c 9.3 - but less accurate with dialysis Pharmacy glycemic consult -Transition to basal/bolus regiment this afternoon - tolerating without hypoglycemia Patient has very labile sugars and hx of issues with hypoglycemia. Tolerating food will discharge home with normal insulin regiment. Has endocrinology appointment this month. 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 Dialysis tomorrow. Notes For Next Care Provider Admitted with elevated blood sugars, likely DKA. Improved on insulin drip. Gastroparesis symptoms well controlled. Medication Changes From Visit none - patient instructed to take all BP meds as prescribed Admission HPI Per Admitting Provider he patient is a 53-year-old male with a history of gastroparesis. He is to receive dialysis Thursday and Thursday, he is next due tomorrow. The patient began vomiting today, he states he does have this happen from time to time because of gastroparesis. However, today he cannot stop vomiting and now his blood sugar is over 800, he was started on IV Insulin, he was given Ativan Benadryl and metoclopramide for his intractable nausea and vomiting, repeated blood sugar still in the 500s He has no abdominal pain, there has been no fever or chills, no cough, no shortness of breath, he has a very prolonged QTc. He injected some insulin this morning Discharge Exam General: NAD, VS as above - sitting up in bed Resp: normal respiratory effort, lungs clear to auscultation CV: RRR, + murmur Abd: soft, non tender, Extremities: Moves all extremities, no edema - denies pain with recent fracture Neuro: A&O x3, Updated Medication List Medication Instructions Recorded Confirmed Type acetaminophen 325 mg capsule 650 mg PO Q4H PRN Pain (Scale 09/28/20 12/06/23 History Score 1-3) sertraline 100 mg tablet 100 mg PO QAM 12/29/21 12/06/23 History sertraline 25 mg tablet 25 mg PO QAM 12/29/21 12/06/23 History atorvastatin 10 mg tablet 10 mg PO QAM #90 tabs 08/11/22 12/06/23 Rx ondansetron HCl 4 mg tablet 8 mg (2 x 4 mg) PO Q4 PRN nausea 08/14/22 12/06/23 Rx or vomiting #60 tabs melatonin 1 mg tablet 4 mg PO HS PRN Sleep 09/18/22 12/06/23 History midodrine 5 mg tablet 5 mg PO .COMPLEX 02/19/23 12/06/23 History mirtazapine 7.5 mg tablet 7.5 mg PO HS 02/19/23 12/06/23 History carvedilol 12.5 mg tablet (Coreg) 12.5 mg PO BID #30 tabs 04/08/23 12/06/23 Rx lorazepam 0.5 mg tablet 0.5 mg PO Q8H PRN severe nausea 04/24/23 12/06/23 Rx #30 tabs insulin glargine 100 unit/mL (3 20 unit subcut QAM 09/12/23 12/06/23 History mL) subcutaneous pen (Basaglar KwikPen U-100 Insulin) insulin regular human 100 unit/mL 0 sliding scale dose subcut TIDM 09/12/23 12/06/23 History (3 mL) subcutaneous pen (Novolin R FlexPen) pantoprazole 40 mg tablet,delayed 40 mg PO QAM #90 tabs 11/12/23 12/06/23 Rx release (Protonix) amlodipine 10 mg tablet 10 mg PO DAILY 12/06/23 12/06/23 History aprepitant 80 mg capsule 80 mg PO DAILY PRN NAUSEA/VOMITING 12/06/23 12/06/23 History ascorbic acid (vitamin C) 500 mg 500 mg PO QAM 12/06/23 12/06/23 History tablet,extended release (Vitamin C ER) cholecalciferol (vitamin D3) 50 50 mcg PO DAILY 12/06/23 12/06/23 History mcg (2,000 unit) capsule (Vitamin D3) prochlorperazine maleate 5 mg 5 mg PO DIRECTED PRN 12/06/23 12/06/23 History tablet NAUSEA/VOMITING warfarin 5 mg tablet 5 mg PO QDD 12/06/23 12/06/23 History calcium acetate(phosphat bind) 667 mg 12/08/23 History mg capsule hydralazine 50 mg tablet 50 mg PO TID 30 days #90 tabs 12/08/23 Rx lanthanum 500 mg chewable tablet mg 12/08/23 History tenapanor 30 mg tablet (Xphozah) mg 12/08/23 History Hospital Stay Data Consultations 12/06/23 16:03 ED Decision to Admit Stat 12/06/23 18:47 Consult Nephrology Stat Pending Results Patient Have Any Pending Studies at Discharge: No Discharge Instructions Given to Patient (Per Discharging Provider) Mr. De Los Santos, You were hospitalized after elevated blood sugars. Thankfully this resolved with an insulin drip. Continue lantus 20units with sliding scale at meals. You should continue the 1.2L fluid restriction You were seen by your counter molder - * Continue your blood pressure medications - amlodipine, coreg (twice a day) and hydralazine (three times a day) * Plan for Dialysis at [facility] tomorrow. * Continue your phosphate binders as well - Xphozah 30 mg (twice a day), fosrenol and calcium acetate Continue home medications for nausea/gastrparesis. INR within appropriate range while here - continue coumadin Follow up with your PCP in 7-10 days. Keep already scheduled appointment with e ndocrinology. Activity: You can do normal everyday activities as your body allows. Take rest breaks if you feel tired. Do not overexert. Stop activity if you have pain, shortness of breath or feel dizzy. Follow-up appointments: Make an appointment with your primary care physician within one week of discharge. A copy of this summary will be sent to them. Every time you see your primary care physician, or any other doctor, bring your medication list, and a list of questions. CONTACT YOUR PRIMARY CARE PROVIDER if you experience any of the following: Shortness of breath or difficulty breathing Fevers or chills Feeling tired with normal activity or experiencing dizziness or fainting Difficulty following your treatment plan, or difficulty taking medications CALL 911 OR GO TO THE EMERGENCY DEPARTMENT if you experience any of the following: Severe abdominal pain or nausea/vomiting Severe chest pain, or chest pain that radiates (moves) to your jaw or arm Sudden, severe shortness of breath or difficulty breathing Thank you for allowing us to participate in your care. Dian Lindsay PA-C Total Time Total Time Spent Total Time Spent (In Minutes): Time spend day of discharge 35 minutes including direct patient care, medication reconciliation, documentation, review of labs and images, and coordination of care. Supervising Physician Co-Signing Physician Notes PA Supervision Note: I did not personally see or examine the patient today, but I verified all julien points of CAROL Lindsay's assessment and plan with the following exceptions/additions: None Coding Level of Care Code 88809 INP/OBS DISCH >30 MIN Diagnoses Acute hyperglycemia R73.9 Diabetic gastroparesis E11.43; K31.84 ESRD (end stage renal disease) N18.6 Hypertension I10 Hypertension type: unspecified History of venous thromboembolism Z86.718
== END 2023-12-08 14:16 | disposition home or self-care (01) | DRG 637 ==
LOC: ED 13:23 → 4W 16:50 → SUATTDRO 16:50 → 4W 18:23

== ENCOUNTER 2024-04-27 10:32 | Inpatient (IN) ==
--- NOTE | 2024-04-27 11:11 | Emergency Department Note ---
Impression & Plan Nausea & vomiting, Hypertension, ESRD (end stage renal disease), 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, with long-term current use of insulin ED Provider Note Provider: Calderon Griffin MD CHIEF COMPLAINT: Nausea and vomiting HISTORY OF PRESENT ILLNESS: Patient is a 53-year-old gentleman history of type 1 diabetes on dialysis with end-stage renal disease, gastroparesis, hypertension, CAD, and recent left tibial plateau fracture presenting today from the dialysis center. States he completed 2 hours of his scheduled 4-hour dialysis treatment but the nausea was too much. Has been having nausea issues the last several days. Was seen here in the ER in the last week or so with nausea issues were as well. Given Zofran initially as well as later at 1.25 mg of IM droperidol to help with symptoms. States he still nauseous but is little bit improved. States feels thirsty. Has been able to keep down food and drink yesterday but not today. No diarrhea. No abdominal pain. Denies taking his morning medications. No chest pain or shortness of breath reported. No falls or trauma. No leg swelling reported. Patient does report that he was seen by orthopedics and will be in a brace for some time with his left tibial plateau fracture. PAST MEDICAL HISTORY: As noted above MEDICATIONS: Reviewed home medications SOCIAL HISTORY: PHYSICAL EXAM: GENERAL: alert and oriented in no acute distress on stretcher to verbal stimuli but drowsy Head: normocephalic and atraumatic EYES: No injection, discharge or icterus. PERRL, EOMI. NECK: Trachea midline. Supple. ENT: Mucous membranes pink and moist. LUNGS: Airway patent. No retractions. Breath sounds clear with good air entry bilaterally. HEART: Regular rate and rhythm. No chest wall tenderness ABDOMEN: Soft and non-tender, without guarding or rebound. SKIN: Acyanotic, warm, dry, without rashes EXTREMITIES: Without swelling, tenderness or deformity with bandage left upper extremity fistula in place with thrill without evidence of bleeding at this time NEUROLOGICAL: No focal deficits moves all extremities when awoken and prompting but seems somewhat drowsy. No aphasia. No facial droop or slurred speech. Normal strength and tone in the extremities. Sensation to gross touch normal. EK bpm sinus rhythm first-degree AV block. No PVC or PAC. No acute ST segment elevation or depression with a QTc of 485. CONTINUOUS CARDIAC MONITORING: was ordered and showed a heart rate of 60s to 80s bpm in n sinus rhythm first-degree AV block Patient's laboratory studies and imaging reviewed. Differential includes Gastroenteritis, food borne illness, infections, appendicitis, diverticulitis, inflammatory bowel disease, obstruction, GI bleed, biliary pathology, volvulus, as well as other pathologies. IMPRESSION/MEDICAL DECISION MAKING: No trauma or falls. Patient did receive droperidol prior to arrival due to difficulty with IV access. IV team has been called here. Helps with his nausea some but seems fairly drowsy. Was placed on oxy upon arrival given his drowsiness but do not see any documented desaturations. Denies abdominal pain or diarrhea. History unfortunately of gastroparesis likely secondary to his diabetes. Will ensure he is not in DKA or with severe electrolyte abnormality. Will check INR as he is on warfarin and diet has been variable by his report. Will hope to provide additional IV antiemetics but IV team again here to establish access due to difficulty. Does not appear in any obvious distress at this point. Is noted to be hypertensive upon arrival here. Blood work here stable mild anemia 10.9. Slight leukocytosis 11 nonspecific. No significant hypercarbia or acidosis today. INR therapeutic at 2.5. Some hypokalemia 2.9 although did just finish dialysis. This was slight anion gap of 12. Creatinine elevated but again dialysis patient. Will avoid potassium repletion given the ESRD. No other severe electrolyte or LFT abnormalities noted. No evidence of hepatitis/pancreatitis. Troponin normal. Procalcitonin normal. Doubt sepsis. Patient continues to be severely hypertensive. X-ray obtained per my interpretation no evidence significant pulmonary edema/effusion, or pneumonia. Given some IV labetalol for blood pressure. Still drowsy after the medications and complaining of some nausea. Given the patient's severe hypertension with persistent nausea and as well as his drowsiness and small O2 requirement after receiving prior medications believe further care here at the hospital is indicated. While he does respond to Ativan Benadryl and Compazine given his drowsiness do not want a make him more drowsy as he is slowly starting to improve and come off oxygen. Hospitalist team was contacted. DIAGNOSIS: Nausea and vomiting, hypertension, drowsiness, hypokalemia, ESRD secondary to type 2 diabetes DISPOSITION: Hospitalist will evaluate Patient was agreeable with this plan. Past Med/Surg History Problem List (Updated 04/27/24 @ 18:06 by Calderon Griffin M.D.) History of pulmonary embolism 11/2020; unk etiology; was on warfarin (taken off 05/2021) Hypertension (Acute) Gastroparesis (Acute) Nausea & vomiting (Acute) Nausea & vomiting (Acute) Closed fracture of left tibial plateau (Acute) Controlled diabetes mellitus with kidney complication, with long-term current use of insulin GERD (gastroesophageal reflux disease) (Chronic) AV fistula (Chronic) left upper arm Diabetic peripheral neuropathy associated with type 1 diabetes mellitus (Chronic) Cardiomyopathy (Chronic) ESRD (end stage renal disease) (Chronic) hemodialysis M,W,F (Follows with Dr. Lor Guadalupe; [facility]) Diabetic gastroparesis (Chronic) Hypertension (Chronic) Renal osteodystrophy (Chronic) First degree atrioventricular block by electrocardiogram (Chronic) Anxiety (Chronic) 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, with long-term current use of insulin (Chronic) 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, with long-term current use of insulin (Chronic) Dialysis patient (Chronic) Diabetic retinopathy (Chronic) Chronic pleural effusion (Chronic) PleurX catheter placed 01/24/21--removed 07/2021 CAD (coronary artery disease) (Chronic) mild, non-obstructive CAD per 10/2018 cardiac cath> [facility] Lumbar radiculopathy (Chronic) Medical History (Updated 04/27/24 @ 18:06 by Calderon Griffin M.D.) Deep vein thrombosis (DVT) of right lower extremity History of nephrolithiasis Metatarsal fracture Urolithiasis Surgical History History of colonoscopy S/P arteriovenous (AV) fistula creation left arm History of cataract surgery History of esophagogastroduodenoscopy (EGD) (~03/08/20) History of open reduction and internal fixation (ORIF) procedure right hip Nausea and vomiting after administration of anesthetic agent History of lithotripsy History of cardiac cath x2---07/28/23 @ [facility], no stents--per pt done for transplant list and 10/2018 @ [facility] (no stents) History of hip surgery left HIP ARTHROSCOPY H/O shoulder surgery RIGHT History of appendectomy Family History Grandfather Myocardial infarction Grandfather (Maternal) Family history of diabetes mellitus Uncle Myocardial infarction Father Hypertension Mother Kidney stone Other No family history of adverse response to anesthesia Denies family history of Colon cancer Ovarian cancer Prostate cancer Breast cancer Social History Smoking Status: Never smoker Tobacco Type: Smokeless Tobacco (Dip or Chew) Second Hand Exposure: No; Do You Dip or Chew Tobacco: No; Hx Alcohol Use: No Hx Substance Use: No Preferred Language: Nepali Communication Ability: Effective Visual Impairment: No Limitations Hearing Ability: Normal Director Of Marketing Analytics Required: No Beliefs That Will Affect Care: None marital status: Current Living Situation: Parent Current Living Situation Comment: Lives with parents current occupational status: disabled How many Children do You have: 2 Feels Safe at Home: Yes Childhood Exposure to Second-Hand Smoke: Yes Diet: regular caffeine: Yes Dental Care, Regularly: No Physical Activity Frequency: 1-2 Times per Week Seatbelt Use: always Sunscreen Use: Yes Gender Identity: Male Assistive Devices: None Allergies Allergies Allergy/AdvReac Type Severity Reaction Status Date / Time shellfish derived Allergy Severe anaphylaxis Verified 03/31/24 11:52 codeine Allergy Intermediate Hives Verified 03/31/24 11:52 promethazine Allergy Intermediate itchy/hives Verified 03/31/24 11:52 Home Meds Home Medications Medication Instructions Recorded Confirmed acetaminophen 325 mg capsule 650 mg PO Q4H PRN Pain (Scale 09/28/20 04/27/24 Score 1-3) melatonin 1 mg tablet 4 mg PO HS PRN Sleep 09/18/22 04/27/24 midodrine 5 mg tablet 5 mg PO .COMPLEX 02/19/23 04/27/24 mirtazapine 7.5 mg tablet 7.5 mg PO HS 02/19/23 04/27/24 aprepitant 80 mg capsule 80 mg PO DAILY PRN NAUSEA/VOMITING 12/06/23 04/27/24 ascorbic acid (vitamin C) 500 mg 500 mg PO QAM 12/06/23 04/27/24 tablet,extended release (Vitamin C ER) cholecalciferol (vitamin D3) 50 50 mcg PO QPM 12/06/23 04/27/24 mcg (2,000 unit) capsule (Vitamin D3) warfarin 5 mg tablet 5 mg PO DAILY 12/06/23 04/27/24 tenapanor 30 mg tablet (Xphozah) 30 mg PO BID 12/08/23 04/27/24 insulin lispro 100 unit/mL 60 unit subcut DAILY 04/19/24 04/27/24 subcutaneous solution (Admelog U-) atorvastatin 20 mg tablet 20 mg PO QPM 04/27/24 04/27/24 Previous Rx's Medication Instructions Recorded lorazepam 0.5 mg tablet 0.5 mg PO Q8H PRN severe nausea 04/24/23 #30 tabs pantoprazole 40 mg tablet,delayed 40 mg PO QAM #90 tabs 11/12/23 release (Protonix) insulin pump cart,automated,BT #10 ea 12/29/23 (Omnipod 5 G6 Pods (Gen 5) subcutaneous cartridge) insulin pump cartridge,automated #1 ea 12/29/23 dose,BT with controller subcutaneous (Omnipod 5 G6 Intro Kit (Gen 5) subcutaneous cartridge with controller) pen needle, diabetic 31 gauge x #100 ea 01/01/24 1/4" (Droplet Pen Needle) carvedilol 12.5 mg tablet 12.5 mg PO BID #180 tabs 02/11/24 ondansetron 4 mg disintegrating 4 mg PO Q12H PRN nausea and 04/25/24 tablet vomiting 3 days #9 tabs Results & Data (ED) Vital Signs Vital Signs - 24 hr 04/27/24 10:37 04/27/24 10:38 04/27/24 11:07 Temperature 36.8 C Temperature Source Oral Pulse Rate 80 79 Pulse Rate [Apical] Pulse Rhythm Regular Pulse Strength Normal Pulse Strength [Apical] Respiratory Rate 18 Respiratory Effort / Characteristics Non-Labored Spontaneous Respiratory Depth Normal Respiratory Pattern Regular Blood Pressure 206/88 H Blood Pressure [Right Arm] Blood Pressure Mean 127 Blood Pressure Mean [Right Arm] Pulse Oximetry 92 94 Oxygen Delivery Method Nasal Cannula Nasal Cannula Oxygen Flow Rate 2 2 Sepsis Recent Fever Within 48 Hours No Sepsis New/Unexplained Change in Mental Status No Sepsis Action Taken by Nursing No Action Required 04/27/24 12:05 04/27/24 13:03 04/27/24 13:30 Temperature 37.1 C Temperature Source Oral Pulse Rate 78 Pulse Rate [Apical] 79 77 Pulse Rhythm Pulse Strength Pulse Strength [Apical] Normal Normal Respiratory Rate 18 19 Respiratory Effort / Characteristics Non-Labored Spontaneous Non-Labored Spontaneous Respiratory Depth Normal Respiratory Pattern Regular Regular Blood Pressure 223/99 H Blood Pressure [Right Arm] 233/104 H 169/91 H Blood Pressure Mean Blood Pressure Mean [Right Arm] 147 117 Pulse Oximetry 99 100 Oxygen Delivery Method Nasal Cannula Nasal Cannula Oxygen Flow Rate 2 Sepsis Recent Fever Within 48 Hours Sepsis New/Unexplained Change in Mental Status Sepsis Action Taken by Nursing Laboratory Data 04/27/24 11:29 04/27/24 11: Lab Results 04/27/24 04/27/24 04/27/24 Range/Units 11:05 11:29 12:08 WBC 11.07 H (4.8-10.8) K/ul RBC 3.38 L (4.70-6.10) M/uL Hgb 10.9 L (14.0-18.0) g/dl Hct 33.6 L (42.0-52.0) % MCV 99.4 (80.0-100.0) fL MCH 32.2 (25.0-34.0) pg MCHC 32.4 (32.0-36.0) g/dL RDW Std Deviation 47.8 H (36.4-46.3) fL RDW Coeff of Kami 13.2 (11.5-14.5) % Plt Count 349 (130-400) K/uL MPV 8.7 L (9.4-12.4) fL Immature Gran % (Auto) 0.6 % Neut % (Auto) 82.7 % Lymph % (Auto) 8.7 % Overton % (Auto) 7.0 % Eos % (Auto) 0.6 % Baso % (Auto) 0.4 % Neut # (Auto) 9.15 H (1.40-6.50) K/uL Lymph # (Auto) 0.96 L (1.20-3.40) K/uL Overton # (Auto) 0.78 H (0.11-0.59) K/uL Eos # (Auto) 0.07 (0.00-0.50) K/uL Baso # (Auto) 0.04 (0.00-0.20) K/uL Immature Gran # (Auto) 0.07 (0.01-0.20) K/uL PT 25.4 H (9.0-12.0) Seconds INR 2.5 H (0.9-1.1) APTT 39 H (21-31) Seconds PTT Ratio 1.4 VBG pH 7.51 H (7.36-7.41) VBG pCO2 47 (38-50) mmHg VBG pO2 70 mmHg VBG HCO3 38 mmol/L VBG O2 Saturation 94.0 % VBG Base Excess 12.7 mEq/L Sodium 139 (136-145) mmol/L Potassium 2.9 L (3.5-5.1) mmol/L Chloride 91 L (98-107) mmol/L Carbon Dioxide 36 H (21-32) mmol/L Anion Gap 12 H (3-11) BUN 13 (6-23) mg/dl Creatinine 4.38 H D (0.6-1.4) mg/dl Est Cr Clr Drug Dosing 18.9 ml/min eGFR 15.29 BUN/Creatinine Ratio 3.0 L (10-20) Glucose 167 H (70-99(Fasting)) mg/dl POC Glucose 163 H (70-99) mg/dl Calcium 8.8 (8.6-10.3) mg/dl Magnesium 2.0 (1.7-2.4) mg/dl Total Bilirubin 0.6 (0.2-1.0) mg/dl AST 10 L (13-39) U/L ALT 7 (7-52) U/L Alkaline Phosphatase 136 H (34-104) U/L Troponin I High Sens 17.7 (0-20) pg/ml Total Protein 7.0 (6.0-8.3) gm/dl Albumin 4.0 (3.4-5.0) gm/dl Globulin 3.0 (2.5-4.0) gm/dl Albumin/Globulin Ratio 1.3 (0.9-2) Lipase 11 (11-82) U/L Procalcitonin 0.26 (0-0.5) ng/ml Administered Medications Discontinued Medications Carvedilol (Carvedilol 12.5 Mg Tab) 12.5 mg PO NOW ONE Stop: 04/27/24 14:35 Last Admin: 04/27/24 14:55 Dose: 12.5 mg Documented By: ROSA ISELA Hydralazine HCl (Hydralazine Hcl 25 Mg Tab) 25 mg PO NOW STA Stop: 04/27/24 16:07 Last Admin: 04/27/24 16:30 Dose: 25 mg Documented By: KISHA Pantoprazole Sodium (Protonix) 40 mg in 10 mls @ 5 mls/min IV NOW ONE Stop: 04/27/24 14:02 Last Admin: 04/27/24 15:36 Dose: 5 mls/min Documented By: JENNIE Labetalol HCl (Labetalol Hcl Iv 5 Mg/Ml 20ml) 10 mg IV NOW STA Stop: 04/27/24 12:55 Last Admin: 04/27/24 13:03 Dose: 10 mg Documented By: MY Labetalol HCl (Labetalol Hcl Iv 5 Mg/Ml 20ml) 5 mg IV NOW STA Stop: 04/27/24 14:35 Last Admin: 04/27/24 14:56 Dose: 5 mg Documented By: ROSA ISELA Ondansetron HCl (Ondansetron Inj 2 Mg/Ml 2 Ml Vial) 4 mg IV NOW STA Stop: 04/27/24 11:51 Last Admin: 04/27/24 12:02 Dose: 4 mg Documented By: ROSA ISELA Imaging Data Radiologist's Impression: Chest X-Ray 04/27/24 12:09 XR chest 1V portable HISTORY: 53 years-old Male vomiting acute chest pain with vomiting COMPARISON: 04/20/2024, 12/06/2023. TECHNIQUE: AP view of the chest FINDINGS: Electronic devices project over the upper abdomen. Cardiomegaly with mild chronic interstitial coarsening. Minimal left basilar atelectasis. No pneumothorax, pleural effusion or airspace consolidation. IMPRESSION: No acute processes of the chest. ACT 112: Negative or not required by law. The above report was generated using voice recognition software. It may contain grammatical, syntax or spelling errors. Electronically signed by: Justus Martinez M.D. 04/27/2024 1:01 PM Discharge Plan Visit Data Chief Complaint: Vomiting Stated Complaint: Vomiting ED Provider: Calderon Griffin Discharge Problem: Nausea & vomiting, Hypertension, ESRD (end stage renal disease), 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, with long-term current use of insulin Patient Disposition: Admitted As Inpatient Discharge Instructions Interventions: ED Discharge Assessment Last Done: 04/27/24 16:36
[2024-04-27 11:44] LABS: Basophils # (auto) 0.04 K/uL (0.00-0.20); Basophils % (auto) 0.4 %; Eosinophils # (auto) 0.07 K/uL (0.00-0.50); Eosinophils % (auto) 0.6 %; Hematocrit (blood only) 33.6 % (42.0-52.0); Hemoglobin 10.9 g/dl (14.0-18.0); Immature Granulocytes # (auto) 0.07 K/uL (0.01-0.20); Immature Granulocytes % (auto) 0.6 %; Lymphocytes # (auto) 0.96 K/uL (1.20-3.40); Lymphocytes % (auto) 8.7 %; Mean Corpuscular Hemoglobin 32.2 pg (25.0-34.0); Mean Corpuscular Hgb Conc 32.4 g/dL (32.0-36.0); Mean Corpuscular Volume 99.4 fL (80.0-100.0); Mean Platelet Volume 8.7 fL (9.4-12.4); Monocytes # (auto) 0.78 K/uL (0.11-0.59); Neutrophils # (auto) 9.15 K/uL (1.40-6.50); Neutrophils % (auto) 82.7 %; Platelet Count 349 K/uL (130-400); RDW Coefficient of Variation 13.2 % (11.5-14.5); RDW Standard Deviation 47.8 fL (36.4-46.3); Red Blood Count 3.38 M/uL (4.70-6.10); White Blood Count 11.07 K/ul (4.8-10.8)
[2024-04-27] MEDS: ONDANSETRON INJ 2 MG/ML 2 ML VIAL IV STA (12:02)
[2024-04-27 12:05] LABS: Albumin Globulin Ratio 1.3 (0.9-2); Bilirubin,Total 0.6 mg/dl (0.2-1.0); Calcium 8.8 mg/dl (8.6-10.3); Creatinine Clr Calc Pharmacy 18.9 ml/min; Potassium 2.9 mmol/L (3.5-5.1)
[2024-04-27 12:09] LABS: Troponin I High Sensitivity 17.7 pg/ml (0-20)
[2024-04-27 12:11] LABS: INR 2.5 (0.9-1.1); Partial Thromboplastin Ratio 1.4; Partial Thromboplastin Time 39 Seconds (21-31); Prothrombin Time 25.4 Seconds (9.0-12.0)
[2024-04-27 12:27] LABS: Base Excess VBG 12.7 mEq/L; HCO3 VBG 38 mmol/L; PCO2 VBG 47 mmHg (38-50); PO2 VBG 70 mmHg; pH VBG 7.51 (7.36-7.41)
--- NOTE | 2024-04-27 13:02 | XRay Report ---
XR chest 1V portable HISTORY: 53 years-old Male vomiting acute chest pain with vomiting COMPARISON: 04/20/2024, 12/06/2023. TECHNIQUE: AP view of the chest FINDINGS: Electronic devices project over the upper abdomen. Cardiomegaly with mild chronic interstitial coarse ervin. Minimal left basilar atelectasis. No pneumothorax, pleural effusion or airspace consolidation. IMPRESSION: No acute processes of the chest. ACT 112: Negative or not required by law. The above report was generated using voice recognition software. It may contain grammatical, syntax o r spelling errors. Electronically signed by: Justus Martinez M.D. 04/27/2024 1:01 PM
[2024-04-27] MEDS: LABETALOL HCL IV 5 MG/ML 20ML IV STA ×2 (13:03→14:56)
--- NOTE | 2024-04-27 13:10 | History & Physical Report ---
Date of Service April 27, 2024 Assessment & Plan (1) Nausea & vomiting: Plan: Acute onset nausea and vomiting will patient was at his dialysis session on the morning of 04/27 Mild leukocytosis at 11.07; ? stress demargination vs infectious etiology Based on initial labs, patient does not appear to be in DKA on arrival Nausea and vomiting may be secondary to gastroparesis; DDx includes viral GI illness IV Zofran as needed; QTc okay IV Ativan 0.5 mg IV q8h as needed Clear liquid diet for now advance to T1DM diet as tolerated (2) Gastroparesis: Plan: Likely the cause of #1 Supportive care Continue aprepitant p.o. daily PRN IV metoclopramide 10 mg IV q6h PRN (3) ESRD (end stage renal disease): Plan: HD on He reports he only got through approximately half of his dialysis session on Friday 04/27 [facility] nephrology consult appreciated (4) Hypertension: Plan: BP elevated at 223/99 on arrival; ? 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, with long- term current use of insulin: Plan: Last A1c at 9.3% on 12/07/2023 Awaiting kidney/pancreas transplant and needs A1c <8% Patient was started on OmniPod on 03/01, and per review of last diabetes note 04/15, he has been doing very well He is unsure how much insulin he requires daily, but reports his glucose has been well-managed Per diabetes note on 04/15: TDD 26 u/day TBD 13 u/day SGA 153 mg/dL SD 45 Okay to continue insulin pump while inpatient Clear liquid diet, then T1DM diet as tolerated BSG ACHS Adjust regimen as needed Pharmacy glycemic consult appreciated in setting of poor oral intake in T1 DM AM A1c (6) History of pulmonary embolism: Plan: On warfarin therapy Patient denies hemoptysis Trend PT/INR Plan Disposition: Admit to MedSur telemetry Full code Clear liquid diet for now and advance to T1DM / Dialysis renal diet as tolerated VTE PPx: Continue warfarin History of Present Illness Chief Complaint: Vomiting Primary Care Provider: MD Jorge Alberto Beckett is a 53-year-old male with PMH of CAD, ESRD on dialysis, T1DM, gastroparesis, GERD, and HTN. He presented via EMS on 04/27 from the dialysis center for acute onset of vomiting. Father at bedside. Patient reports that he got through about approximately half of his dialysis session today when he started to feel nauseous and started vomiting. He denies any blood in his vomit or coffee-ground emesis. Patient does not usually take morning medications prior to dialysis, so he has not taken any medications today. He reports good compliance with taking his medications, and last took warfarin last night. No recent change in diet. He has had several episodes of vomiting this past week, and is unsure what triggers them. Patient reports that he felt fine when he woke up this morning. No sick contacts. No fever this week, but patient does report he feels "hot" while in the ED. No prior history of bowel obstructions. He does have a history of appendectomy, and had a procedure to have his pyloric ring clipped in December 2023. Patient denies any abdominal pain at this time; 0/10 abdominal pain. No diarrhea or change in bowel habits. He is anuric at baseline, and gets hemodialysis M/W/F; follows with [facility] nephrology (Dr. Higgins). He is currently trying to get down his A1c for renal/pancreatic transplant. Patient has been taking Zofran and Tigan at home for vomiting this past week, which helps. He lives with his parents. He reports he has been doing well using his OmniPod insulin pump which he started in February. He denies any recent rashes or tick bites on his body. He denies smoking, tobacco use, recent alcohol use. Patient is hypertensive at 223/99 at time of admission; vitals otherwise stable. Medications given at dialysis: Zofran 4 mg IV Droperidol 1.25 mg IM ED course: Zofran 4 mg IV Labetalol 10 mg IV ROS: Patient endorses acute onset of nausea and vomiting, fatigue, and feeling hot/feverish in the ED. Patient denies fever last night, night-sweats, chills, CHANEL, dizziness, lightheadedness, chest pain, chest palpitations, pleuritic CP, cough, SOB, abdominal pain, abdominal cramping, diarrhea, or changes in bowel habits. Allergies Allergy/AdvReac Type Severity Reaction Status Date / Time shellfish derived Allergy Severe anaphylaxis Verified 03/31/24 11:52 codeine Allergy Intermediate Hives Verified 03/31/24 11:52 promethazine Allergy Intermediate itchy/hives Verified 03/31/24 11:52 Home Medications Medication Instructions Recorded Confirmed Type acetaminophen 325 mg capsule 650 mg PO Q4H PRN Pain (Scale 09/28/20 04/27/24 History Score 1-3) melatonin 1 mg tablet 4 mg PO HS PRN Sleep 09/18/22 04/27/24 History midodrine 5 mg tablet 5 mg PO .COMPLEX 02/19/23 04/27/24 History mirtazapine 7.5 mg tablet 7.5 mg PO HS 02/19/23 04/27/24 History lorazepam 0.5 mg tablet 0.5 mg PO Q8H PRN severe nausea 04/24/23 04/27/24 Rx #30 tabs pantoprazole 40 mg tablet,delayed 40 mg PO QAM #90 tabs 11/12/23 04/27/24 Rx release (Protonix) aprepitant 80 mg capsule 80 mg PO DAILY PRN NAUSEA/VOMITING 12/06/23 04/27/24 History ascorbic acid (vitamin C) 500 mg 500 mg PO QAM 12/06/23 04/27/24 History tablet,extended release (Vitamin C ER) cholecalciferol (vitamin D3) 50 50 mcg PO QPM 12/06/23 04/27/24 History mcg (2,000 unit) capsule (Vitamin D3) warfarin 5 mg tablet 5 mg PO DAILY 12/06/23 04/27/24 History tenapanor 30 mg tablet (Xphozah) 30 mg PO BID 12/08/23 04/27/24 History insulin pump cart,automated,BT #10 ea 12/29/23 04/05/24 Rx (Omnipod 5 G6 Pods (Gen 5) subcutaneous cartridge) insulin pump cartridge,automated #1 ea 12/29/23 04/05/24 Rx dose,BT with controller subcutaneous (Omnipod 5 G6 Intro Kit (Gen 5) subcutaneous cartridge with controller) pen needle, diabetic 31 gauge x #100 ea 01/01/24 04/05/24 Rx 1/4" (Droplet Pen Needle) carvedilol 12.5 mg tablet 12.5 mg PO BID #180 tabs 02/11/24 04/27/24 Rx insulin lispro 100 unit/mL 60 unit subcut DAILY 04/19/24 04/27/24 History subcutaneous solution (Admelog U-) ondansetron 4 mg disintegrating 4 mg PO Q12H PRN nausea and 04/25/24 04/27/24 Rx tablet vomiting 3 days #9 tabs atorvastatin 20 mg tablet 20 mg PO QPM 04/27/24 04/27/24 History Past Med/Surg History Problem List (Updated 04/27/24 @ 13:15 by Cristiano Gaines PA-C) History of pulmonary embolism 11/2020; unk etiology; was on warfarin (taken off 05/2021) Hypertension (Acute) Gastroparesis (Acute) Nausea & vomiting (Acute) Nausea & vomiting (Acute) Closed fracture of left tibial plateau (Acute) Controlled diabetes mellitus with kidney complication, with long-term current use of insulin GERD (gastroesophageal reflux disease) (Chronic) AV fistula (Chronic) left upper arm Diabetic peripheral neuropathy associated with type 1 diabetes mellitus (Chronic) Cardiomyopathy (Chronic) ESRD (end stage renal disease) (Chronic) hemodialysis M,W,F (Follows with Dr. 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, with long-term current use of insulin (Chronic) 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, with long-term current use of insulin (Chronic) Dialysis patient (Chronic) Diabetic retinopathy (Chronic) Chronic pleural effusion (Chronic) PleurX catheter placed 01/24/21--removed 07/2021 CAD (coronary artery disease) (Chronic) mild, non-obstructive CAD per 10/2018 cardiac cath> [facility] Lumbar radiculopathy (Chronic) Medical History (Updated 04/27/24 @ 13:15 by Cristiano Gaines PA-C) Deep vein thrombosis (DVT) of right lower extremity History of nephrolithiasis Metatarsal fracture Urolithiasis Surgical History History of colonoscopy S/P arteriovenous (AV) fistula creation left arm History of cataract surgery History of esophagogastroduodenoscopy (EGD) (~03/08/20) History of open reduction and internal fixation (ORIF) procedure right hip Nausea and vomiting after administration of anesthetic agent History of lithotripsy History of cardiac cath x2---07/28/23 @ [facility], no stents--per pt done for transplant list and 10/2018 @ [facility] (no stents) History of hip surgery left HIP ARTHROSCOPY H/O shoulder surgery RIGHT History of appendectomy Family History Grandfather Myocardial infarction Grandfather (Maternal) Family history of diabetes mellitus Uncle Myocardial infarction Father Hypertension Mother Kidney stone Other No family history of adverse response to anesthesia Denies family history of Colon cancer Ovarian cancer Prostate cancer Breast cancer Social History Smoking Status: Never smoker Tobacco Type: Smokeless Tobacco (Dip or Chew) Second Hand Exposure: No; Do You Dip or Chew Tobacco: No; Hx Alcohol Use: No Hx Substance Use: No Preferred Language: Bolivian Communication Ability: Effective Visual Impairment: No Limitations Hearing Ability: Normal Bank Manager Required: No Beliefs That Will Affect Care: None marital status: Current Living Situation: Parent Current Living Situation Comment: Lives with parents current occupational status: disabled How many Children do You have: 2 Feels Safe at Home: Yes Childhood Exposure to Second-Hand Smoke: Yes Diet: regular caffeine: Yes Dental Care, Regularly: No Physical Activity Frequency: 1-2 Times per Week Seatbelt Use: always Sunscreen Use: Yes Gender Identity: Male Assistive Devices: None Review of Systems Review of Systems: See HPI above Physical Exam Physical Exam: General: no acute distress; lethargic; father at bedside; non-toxic appearing; cooperative; SpO2 99% on 2L NC HEENT: normocephalic, atraumatic; no scleral icterus; PERRLA; vision and hearing intact Neck: supple; no lymphadenopathy; trachea midline Skin: warm, dry without signs of tenting; no cyanosis; no rashes, bruising, lesions, or erythema noted CV: chest wall NTP; RRR; S1/S2 normal; no murmurs/rubs/gallops; pulses intact and symmetric at radial, DP, and PT Lungs: no acute respiratory distress; symmetrical chest wall expansion; clear breath sounds across all lung garcia w/o adventitious sounds; no wheezing ABD: Soft, NTP in all 4 quadrants; insulin pump in place; BS present; no rebound/guarding; no distention; no rashes or bruising on the abdomen or flanks; negative CVA tenderness bilaterally MSK: no tics or fasciculations; no edema noted in the LEs b/l, nonerythematous Neuro: A&Ox3; normal mood and affect; fluent speech; no focal deficits; patient reports that sensation is intact and symmetric in the lower extremities bilaterally Results & Data Results & Data Vital Signs (Past 12 Hours) Vital Signs Temp Pulse Pulse Resp BP BP Pulse Ox 04/27/24 13:03 78 223/99 H 04/27/24 12:05 79 18 233/104 H 99 04/27/24 11:07 94 04/27/24 10:38 79 04/27/24 10:37 36.8 C 80 18 206/88 H 92 O2 Del Method O2 Flow Rate 04/27/24 13:03 04/27/24 12:05 Nasal Cannula 04/27/24 11:07 Nasal Cannula 2 04/27/24 10:38 04/27/24 10:37 Nasal Cannula 2 Laboratory Results Abnormal lab results 04/27/24 04/27/24 04/27/24 Range/Units 11:05 11:29 12:08 WBC 11.07 H (4.8-10.8) K/ul RBC 3.38 L (4.70-6.10) M/uL Hgb 10.9 L (14.0-18.0) g/dl Hct 33.6 L (42.0-52.0) % RDW Std Deviation 47.8 H (36.4-46.3) fL MPV 8.7 L (9.4-12.4) fL Neut # (Auto) 9.15 H (1.40-6.50) K/uL Lymph # (Auto) 0.96 L (1.20-3.40) K/uL Bowman # (Auto) 0.78 H (0.11-0.59) K/uL PT 25.4 H (9.0-12.0) Seconds INR 2.5 H (0.9-1.1) APTT 39 H (21-31) Seconds VBG pH 7.51 H (7.36-7.41) Potassium 2.9 L (3.5-5.1) mmol/L Chloride 91 L (98-107) mmol/L Carbon Dioxide 36 H (21-32) mmol/L Anion Gap 12 H (3-11) Creatinine 4.38 H D (0.6-1.4) mg/dl BUN/Creatinine Ratio 3.0 L (10-20) Glucose 167 H (70-99(Fasting)) mg/dl POC Glucose 163 H (70-99) mg/dl AST 10 L (13-39) U/L Alkaline Phosphatase 136 H (34-104) U/L Diagnostic Findings Chest X-Ray 04/27/24 12:09 XR chest 1V portable HISTORY: 53 years-old Male vomiting acute chest pain with vomiting COMPARISON: 04/20/2024, 12/06/2023. TECHNIQUE: AP view of the chest FINDINGS: Electronic devices project over the upper abdomen. Cardiomegaly with mild chronic interstitial coarsening. Minimal left basilar atelectasis. No pneumothorax, pleural effusion or airspace consolidation. IMPRESSION: No acute processes of the chest. ACT 112: Negative or not required by law. The above report was generated using voice recognition software. It may contain grammatical, syntax or spelling errors. Electronically signed by: Justus Martinez M.D. 04/27/2024 1:01 PM ECG Additional Comments: ECG revealed sinus rhythm with first-degree AV block at 78 bpm; QTc 485 Code Status & VTE Plan Code Status Full code VTE Prophylaxis Plan VTE Prophylaxis will be ordered: Yes Supervising Physician Co-Signing Physician Notes Jorge Alberto is a 53-year-old male with a past medical history of type 1 diabetes, ESRD on dialysis, gastroparesis, hypertension, CAD who presents on referral from the dialysis center for severe nausea which was significant enough to prevent him from completing his 4-hour dialysis treatment, was only able to complete 2 hours. Patient did receive Zofran and 1.25 mg of droperidol with improvement but without resolution. Does have a history of gastroparesis. Also with a history of left tibial plateau fracture for which she is seen orthopedics and will be in a brace. 53yo M. Reports doing well and swtiched to an insulin pump which has been working well. Goal is A1C needs to be <8% for renal transplant. At time of assessment 0/10 pain. +intermittent severe nausea/vomiting bu tno fevers, chills. No hematochezia, no melena. No hematemesis. Nondistressed at bedside Chest x-ray: No acute pulmonary edema/effusion/volume overload Nausea/vomiting Improving with Zofran/droperidol Suspect related to his underlying gastroparesis. Agree with management as above. Mild leukocytosis without left shift suspect stress demargination. No abdominal pain on admission Glucose 167, HCO3 38, pH 7.5 he is not in DKA at admission. ESRDHD On dialysis. Completed half of his dialysis session 04/27 prior to admission, rest was not completed due to nausea Potassium 2.9. Zeus deferred due to risk of hyperkalemia and underlying ESRD with history of hyperkalemia. Will keep slightly lower than standard goal of 4.0 given dialysis dependence and risks of hyperkalemia. Type I DM Pt actually doing quite well, No evidence of DKA on admission. Will continue insulin pump and BSG checks AC/HS. If worsening BSG then transition to facility controlled basal bolus Hypertension In the setting of vomiting and with tibial plateau fracture. No focal neurologic deficits. Labetalol given in ER, will recycle blood pressure, follow for pain and nausea control, and reassess for additional antihypertensives based on clinical change - BP subsequently improved and <180 on recheck. 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
[2024-04-27] MEDS: carvediloL 12.5 MG TAB PO ONE (14:55)
[2024-04-27] MEDS: PANTOprazole 40 MG/10 ML SYR IV ONE (15:36)
[2024-04-27] MEDS: hydrALAZINE HCL 25 MG TAB PO STA (16:30)
[2024-04-27] MEDS ORDERED: CARBOHYDRATES FOR HYPOGLYCEMIA PO PRN ×2 (17:00→19:12)
[2024-04-27] MEDS ORDERED: GLUCAGON FOR INJ 1 MG VIAL SQ PRN ×2 (17:00→19:12)
[2024-04-27] MEDS ORDERED: INSULIN ASPART 100 UNITS/ML VIAL SC PRN (17:00)
[2024-04-27] MEDS ORDERED: DEXTROSE 50% 50 ML SYRINGE IV PRN ×2 (17:00→19:12)
[2024-04-27] MEDS ORDERED: GLUCOSE 40% GEL 15 GM TUBE PO PRN ×2 (17:00→19:12)
[2024-04-27] MEDS ORDERED: GLUCOSE 10 TAB/TUBE PO PRN ×2 (17:00→19:12)
[2024-04-27] MEDS ORDERED: LABETALOL HCL IV 5 MG/ML 20ML IV PRN (19:12)
[2024-04-27] MEDS ORDERED: APREPITANT 80 MG CAP PO PRN (19:12)
[2024-04-27] MEDS ORDERED: ALUMINUM/MAGNESIUM SUSP 30 ML UDC PO PRN (19:12)
[2024-04-27] MEDS ORDERED: PHARMACY GLYCEMIC MGMT CONSULT PRN (19:12)
[2024-04-27] MEDS ORDERED: MIDODRINE HCL 2.5 MG TAB PO PRN (19:12)
[2024-04-27] MEDS ORDERED: MELATONIN 3 MG TAB PO PRN (19:18)
[2024-04-27] MEDS: INSULIN, Rapid-Acting PUMP SCH (20:29)
[2024-04-27] MEDS: carvediloL 12.5 MG TAB PO SCH (20:32)
[2024-04-27] MEDS: ATORVASTATIN 20 MG TAB PO SCH (20:32)
[2024-04-27] MEDS: ACETAMINOPHEN 325 MG TAB PO PRN (20:35)
[2024-04-27] MEDS: MIRTAZAPINE TAB 15 MG TAB PO SCH (20:38)
--- NOTE | 2024-04-27 21:23 | Electrocardiogram Report ---
Test Reason : Blood Pressure : */* mmHG Vent. Rate : 78 BPM Atrial Rate : 78 BPM P-R Int : 214 ms QRS Dur : 96 ms QT Int : 426 ms P-R-T Axes : 83 -15 88 degrees QTcB Int : 485 ms Sinus rhythm with 1st degree A-V block Possible Left atrial enlargement Prolonged QT Abnormal ECG When compared with ECG of 20-Apr-2024 22:18, No significant change was found Confirmed by Travon Ayala ([id number]) on 04/27/2024 9:22:55 PM Referred By: Confirmed By: Travon Ayala
[2024-04-28 07:06] LABS: Basophils # (auto) 0.06 K/uL (0.00-0.20); Basophils % (auto) 0.8 %; Eosinophils # (auto) 0.15 K/uL (0.00-0.50); Eosinophils % (auto) 1.9 %; Hematocrit (blood only) 33.3 % (42.0-52.0); Hemoglobin 10.7 g/dl (14.0-18.0); Immature Granulocytes # (auto) 0.03 K/uL (0.01-0.20); Immature Granulocytes % (auto) 0.4 %; Lymphocytes # (auto) 2.08 K/uL (1.20-3.40); Lymphocytes % (auto) 26.5 %; Mean Corpuscular Hemoglobin 32.3 pg (25.0-34.0); Mean Corpuscular Hgb Conc 32.1 g/dL (32.0-36.0); Mean Corpuscular Volume 100.6 fL (80.0-100.0); Monocytes # (auto) 0.89 K/uL (0.11-0.59); Monocytes % (auto) 11.3 %; Neutrophils # (auto) 4.64 K/uL (1.40-6.50); Neutrophils % (auto) 59.1 %; Platelet Count 348 K/uL (130-400); RDW Coefficient of Variation 13.4 % (11.5-14.5); RDW Standard Deviation 49.1 fL (36.4-46.3); Red Blood Count 3.31 M/uL (4.70-6.10); White Blood Count 7.85 K/ul (4.8-10.8)
[2024-04-28 07:14] LABS: Estimated Average Glucose 154 mg/dl
[2024-04-28 07:36] LABS: INR 2.8 (0.9-1.1); Prothrombin Time 27.6 Seconds (9.0-12.0)
[2024-04-28 07:37] LABS: Albumin Globulin Ratio 1.2 (0.9-2); Albumin Level 3.6 gm/dl (3.4-5.0); BUN Creatinine Ratio 3.5 (10-20); Bilirubin,Total 0.6 mg/dl (0.2-1.0); Calcium 8.1 mg/dl (8.6-10.3); Creatinine Clr Calc Pharmacy 12.2 ml/min; Globulin 2.9 gm/dl (2.5-4.0); Magnesium 2.1 mg/dl (1.7-2.4); Potassium 3.3 mmol/L (3.5-5.1); Total Protein 6.5 gm/dl (6.0-8.3)
--- OUTSIDE RECORDS SUMMARY | 2024-04-28 08:10 | External Medical Summary | Summary of Care ---
Author Name Unknown Organization [facility] Address [address] [place] [address] Phone [phone] Care Team Providers Care Accounts Payable Associate Name Role Phone Genet Cool MD Primary Care Provid er Reason for Referral * Precert (Within 10 days (routine)) - Authorized Specialty Diagnoses / Procedures Referred By Nica joseph Referred To Contact Radiology Diagnoses Closed fracture of left tibial plateau, initial encounter Procedures CT LOWER EXTREMITY LEFT WO CONTRAST Judie Sanchez PA-C [address] [place] [address] Phone: tel: fax: Referral ID Status Reason Start Date Expiration Date V isits Requested Visits Authorized [id number] Authorized 04/21/2024 999 999 Reason for Visit * Reason Comments NEW PATIENT PT is here accompani ed with dad for L knee fx. PT was seen at [facility] 04/20/24DOI: 04/12/24 Was raking and tripped over a root twisting knee. Pt walked on it for a til until was getting nausea PT is here today in a brace Encounter Details Date Type Department Care Team (Late st Contact Info) Description 04/21/2024 8:45 AM EST Office Visit Orthopaedics [facility] [address] [place] [id number] Juide Sanchez PA-C [address] [place] [id number] Closed fracture of left tibial plateau, initial encounter* Allergies Active Allergy Reactions Criticality Noted Date Comments Codeine Itching 05/24/2019 Promethazine Hcl Hives 10/19/2010 Shellfish-Derived Products Anaphylaxis High 04/26/20 18 documented as of this encounter (statuses as of 04/26/2024) Medications [facility] STRPIndications: DKA, type 1 (HCC),DM type 1 causing renal disease, not at goal ([facility]) check your urine if you feel your sugar is too high and you feel dried up 10 Strip 0 09/22/19 14 Active ONETOUCH DELICA LANCETS FINE MISCIndications: DKA, type 1 (HCC) use 4 times a day as instructed 100 Units 0 09/22/19 14 Active BANDAR CONTOUR NEXT TEST STRPIndications: Type I (juvenile type) diabetes mellitus without mention of complication, not stated as uncontrolled for glucose testing 6-8 x day with contour next link meter for minimed pump 650 Strip 3 11/04/19 14 Active LORAzepam (ATIVAN) 0.5 MG Tablet Take 1 Tablet by mouth every 12 hours as needed for Anxiety. 0 05/07/20 15 Active Acetaminophen 325 MG CAPS Take 2 Tabs by mouth as needed. Active atorvaSTATin (LIPITOR) 10 MG Tablet Take 1 Tablet by mouth in the morning. 12/16/19 19 Active Cholecalciferol (VITAMIN D3) 2000 units Capsule Take 1 Capsule by mouth in the morning. 12/17/19 19 Active B Ranythf-J-Jwoyk Acid (RENAL VITAMIN) 1 MG Capsule TAKE 1 CAPSULE BY MOUTH EVERY DAY 90 Cap 3 08/01/19 20 Active Basaglar KwikPen 100 UNIT/ML Subcutaneous Solution Pen-injector (Insulin Glargine) Inject 12 Units under the skin in the morning. Active Melatonin 3 MG Oral Tablet Take 1 Tablet by mouth at bedtime. Active Velphoro 500 MG Oral Tablet Chewable (Sucroferric Oxyhydroxide) Take 2 tabs with meals 180 Tablet 6 06/22/19 22 Active BD Pen Needle Annalise 2nd Gen 32G X 4 MM USE 5 PER DAY WITH INSULIN INJECTIONS 09/12/19 22 Active Sertraline HCl 25 MG Oral Tablet (Zoloft) Take 1 Tablet by mouth in the morning. 11/12/19 22 Active Midodrine HCl 5 MG Oral Tablet (Proamatine) PLEASE SEE ATTACHED FOR DETAILED DIRECTIONS 05/14/20 Active Trimethobenzamid e HCl 300 MG Oral Capsule Take 1 Capsule by mouth in the morning and 1 Capsule at noon and 1 Capsule before bedtime. NEEDED FOR NAUSEA . 30 Capsule 09/17/19 23 Active Ondansetron HCl 8 MG Oral Tablet Take 1 Tablet by mouth every 8 hours as needed for Nausea. 20 Tablet 10/18/19 23 Active Mirtazapine 7.5 MG Oral Tablet (Remeron) Take 1 Tablet by mouth at bedtime. 11/11/19 23 Active Diclofenac Sodium 1 % External Gel Apply topically to affected area. Daily as needed per patient Active BD Pen Needle Mini U/F 31G X 5 MM 12/11/19 23 Active LORazepam 0.5 MG Oral Tablet (Ativan) Take 1 Tablet by mouth every 8 hours as needed for Other (nausea). 6 Tablet 04/18/20 23 Active NovoLIN N 100 UNIT/ML Subcutaneous Suspension (insulin isophane human) Inject under the skin three times a day before meals. Active Aprepitant 80 MG Oral Capsule (Emend) TAKE 1 CAPSULE (80 MG TOTAL) BY MOUTH DAILY NEEDED (NAUSEA AND/OR VOMITING) 06/15/19 24 Active Sertraline HCl 100 MG Oral Tablet (Zoloft) Take 1 Tablet by mouth in the morning. Active hydrALAZINE HCl 50 MG Oral Tablet (Apresoline) Take 1 Tablet by mouth in the morning and 1 Tablet at noon and 1 Tablet before bedtime. 09/23/19 24 Active Carvedilol 12.5 MG Oral Tablet (Coreg) Take 1 Tablet by mouth in the morning and 1 Tablet before bedtime. 07/02/19 24 Active Xphozah 30 MG Oral Tablet Take 1 Tablet by mouth 2 times a day with morning and evening meals. 10/05/19 24 Active Metoclopramide HCl 5 MG Oral Tablet (Reglan) Take 1 Tablet by mouth in the morning and 1 Tablet at noon and 1 Tablet in the evening and 1 Tablet before bedtime. 09/23/19 24 Active NovoLIN R FlexPen 100 UNIT/ML Injection Solution Pen-injector Inject under the skin. Sliding scale with meals 09/02/19 24 Active HYDROcodone-Acet aminophen 5-325 MG Oral Tablet 1 Tablet. 10/02/19 24 Active Warfarin Sodium 5 MG Oral Tablet (Coumadin)Indica tions:End stage renal disease on dialysis (HCC),History of DVT in adulthood,Single subsegmental pulmonary embolism without acute cor pulmonale (HCC),Anticoagul ation management encounter Take 1 Tablet by mouth every evening. As directed by Anticoagulation clinic 30 Tablet 5 11/11/19 24 Active Pantoprazole Sodium 40 MG Oral Tablet Delayed Release (Protonix) One tablet daily 1/2 hour before breakfast 180 Tablet 3 11/19/19 24 Active Hospital, Clinic, or Other Facility Administered [...] as of this encounter (statuses as of 04/26/2024) Active Problems Problem Noted Date Diagnosed Date [...] T12 compression fracture 03/15/2016 ETOH abuse 04/05/2012 Overview (04/05/2012): [facility] Admission with DKA March 2012 DKA, type 1 10/21/2010 Hypophosphatemia 10/21/2010 Hypomagnesemia 10/21/2010 Dyslipidemia, goal LDL below 100 05/15/2009 Overview (05/15/2009): Per Lipid Taxonomy. For someone with Diabetes Type 1 diabetes mellitus wit h hemoglobin A1c goal of less than 7.0% 03/22/2009 Overview (10/08/2015): Modified per Diabetes protocol #14. ICD-10 update of inactive term Hematemesis 11/22/2008 Anxiety state 12/20/2003 Calcium nephrolithiasis 12/20/2003 Overview (12/20/2003): Calcium oxalate kidney stones DM type 1 causing renal disease, not at goal documented as of this encounter (statuses as of 04/26/2024) Resolved Problems Problem Noted Date Diagnosed Date Resolved Date Intractable nausea and vomiting 09/14/2022 09/16/2022 Prolonged Q-T interval on ECG 09/14/2022 09/16/2022 Hypertensive urgency 09/14/2022 023 Rigors 10/20/2020 10/25/2020 Severe sepsis with acute organ dysfunction 10/20/2020 10/25/2020 Hypertensive emergency 10/20/202010/25 Nausea and vomiting 11/22/2008 07/01/19 24 Overview (03/31/2017): ICD-10 update of inactive term Diarrhea 11/22/2008 09/16/2022 ADVANCE DIRECTIVE INFORMATION 10/20/2007 04/11/2024 Overview (06/16/2007): No, Advance Directive brochure offered , patient declined. Dyslipidemia, goal LDL below 160 05/28/2005 05/15/2009 Overview (05/15/2009): Per Lipid Taxonomy. For someone with Diabetes DM type 1, not at goal 12/20/200303/22 Overview (03/22/2009): Modified per Diabetes protocol #14. documented as of this encounter (statuses as of 04/26/2024) Immunizations Name Administration Dates Next Due COVID-19 mRNA, LNP-s, No Pre serve, 2-Dose Series (Moderna) 08/10/2020,07/17/2020 PPD 06/18/2009,04/03/2008 Pneumococcal Conjugate Vacci ne, 20-valent ([id number]) 10/20/2023(Deferred: Contraindication) Pneumococcal Polysaccharide PPV23 (Pneumovax) 04/05/2012,03/31/2007 Season Influenza, Quad, PF, Adjuvanted, 65+ Yrs, IM (FLUAD) 03/25/2021,04/18/2019 Seasonal Influenza Vac., MDV , IM, 0.5 mL (Fluzone) 04/18/2019,04/05/2018,03/10/2017,04/05,04/07/2015,02/08/2009,03/22/2008 ,03/31/2007 Seasonal Influenza Virus Vac cine, Unspecified Formulation 03/05/2020 Seasonal Influenza, PF, 6 M & above, IM , (FluLaval or Fluzone) 04/08/2022 Seasonal Influenza, Recombin ant, RIV4, PF, (Flublock) 03/05/2020 documented as of this encounter Social History Tobacco Use Types Packs/Day Years Used Date Smoking Tobacco: Never Smokeless Tobacco: Former Chew Quit: 02/10/2019 Alcohol Use Standard Drinks/Week Comments Not Currently 0 (1 standard drink = 0.6 oz pure alcohol) Last drink: 06/07/16; 3-4 beers/day x 5 years Personal Safety Answer Date Recorded Do you feel unsafe or have concerns for your saf ety? No 06/29/2023 Do you have concerns for you r family's safety? (Household - for ages 0-17 years) Not on file 06/29/2023 Utilities Answer Date Recorded Do you have trouble paying y our heating, water, or electric bill? No 06/29/2023 Is your family able to pay t he heat, water, or electric bill? (Household - for ages 0-17 years) Not on file 06/29/2023 Does your family have access to good internet? (Household - for ages 0-17 years) Not on file 06/29/2023 Transportation Needs Answer Date Record ed READ ONLY Do you have troubl e getting a ride to medical visits or work? Never True 06/29/2023 Does your family have a hard time getting a ride to doctors visits? (Household - for ages 0-17 years) Not on file 06/29/2023 Has lack of transportation k ept you from medical appointments, meetings, work, or from getting things needed for daily living? Check all that apply. (Adult - for ages 18 years and over) Not on file 06/29/2023 Do you (or your family) have trouble finding or paying for a ride (transportation)? (Household - for ages 0-17 years) Not on file 06/29/2023 Housing Stability Answer Date Recorded Do you currently live in a s helter or have no steady place to sleep at night? (Adult - for ages 18 years and over) Not on file 06/29/2023 READ ONLY Do you think you a re at risk of becoming homeless? No 06/29/2023 Does your family worry about paying for your home or becoming homeless? (Household - for ages 0-17 years) Not on file 0 06/29/2023 Are you homeless or worried that you might be in the future? (Adult - for ages 18 years and over) Not on file Are you (or your family) stephen eless or worried that you might be in the future? (Household - for ages 0-17 years) Not on file Food Insecurity Answer Date Recorded Do you need food for this week? No 06/29/2023 Are you able to get enough f ood for your family? (Household - for ages 0-17 years) Not on file 06/29/2023 Does your family need food t his week? (Household - for ages 0-17 years) Not on file 06/29/2023 Do you always have enough fo od for your family? (Household - for ages 0-17 years) Not on file 06/29/2023 Sex and Gender Information Value Date Recorded Sex Assigned at Not on file Legal Sex Male 5:27 AM EST Gender Identity Not on file Sexual Orientation Not on file Occupation Industry Job Start Date Job End Date Disabled on SSI Not on file Not on file Not on file documented as of this encounter Functional Status * Are you deaf or do you have serious difficulty hearing? Answer Date of Assessment Author No 06/29/2023 9:31 PM Anabel Tucker RN * Are you blind or do you have serious difficulty seeing, even when wearing glasses? Answer Date of Assessment Author No 06/29/2023 9:31 PM Anabel Tucker RN * Do you have serious difficulty walking or climbing stairs? (5 years old or older) Answer Date of Assessment Author No 06/29/2023 9:31 PM Anabel Tucker RN * Do you have difficulty dressing or bathing? (5 years old or older) Answer Date of Assessment Author No 06/29/2023 9:31 PM Anabel Tucker RN * Because of a physical, mental, or emotional condition, do you have difficulty doing errands alone such as visiting a doctors office or shopping? (15 years old or older) Answer Date of Assessment Author No 06/29/2023 9:31 PM Anabel Tucker RN documented as of this encounter Mental Status * Because of a physical, mental, or emotional condition, do you have serious difficulty concentrating, remembering, or making decisions? (5 years old or older) Answer Entry Date Author No 06/29/2023 9:31 PM Anabel Tucker RN documented in this encounter Progress Notes * SharerJudie PA-C - 04/21/2024 9:24 AM EST Jorge Alberto De Los Santos is a 53 year old male who presents for consultation to [facility] for left knee injury/pain. Consult requested by Self . Jorge Alberto De Los Santos is here unaccompanied History: Jorge Alberto De Los Santos reports he injured his left knee on 04/12/2024. Patient states he tripped in [place] and twisted his knee. He complains of pain along the lateral knee. Reports difficulty with weight-bearing. He was seen in the emergency department last night where x-rays were obtained which showed a tibial plateau fracture. He was placed in a knee immobilizer and advised to remain nonweightbearing. History significant for diabetes mellitus, end-stage renal disease, and malnutrition. Last hemoglobin A1c was 10.9 on 07/14/2023 Review of systems: All others negative except those noted above in HPI. Review of patient's allergies indicates: Allergen Reactions Shellfish-Derived Products Anaphylaxis Codeine Itching Promethazine Hcl Hives Current Outpatient Medications Medication Sig Dispense Refill [facility] check your urine if you feel your sugar is too high and you feel dried up 10 Strip 0 ONETOUCH DELICA LANCETS FINE MISC use 4 times a day as instructed 100 Units 0 BANDAR CONTOUR NEXT TEST STRP for glucose testing 6-8 x day with contour next link meter for minimed pump 650 Strip 3 LORAzepam (ATIVAN) 0.5 MG Tablet Take 1 Tablet by mouth every 12 hours as needed for Anxiety. 0 Acetaminophen 325 MG CAPS Take 2 Tabs by mouth as needed. atorvaSTATin (LIPITOR) 10 MG Tablet Take 1 Tablet by mouth in the morning. Cholecalciferol (VITAMIN D3) 2000 units Capsule Take 1 Capsule by mouth in the morning. B Wwhovdm-W-Lhtbq Acid (RENAL VITAMIN) 1 MG Capsule TAKE 1 CAPSULE BY MOUTH EVERY DAY 90 Cap 3 Basaglar KwikPen 100 UNIT/ML Subcutaneous Solution Pen-injector (Insulin Glargine) Inject 12 Units under the skin in the morning. Melatonin 3 MG Oral Tablet Take 1 Tablet by mouth at bedtime. Velphoro 500 MG Oral Tablet Chewable (Sucroferric Oxyhydroxide) Take 2 tabs with meals 180 Tablet 6 BD Pen Needle Annalise 2nd Gen 32G X 4 MM USE 5 PER DAY WITH INSULIN INJECTIONS Sertraline HCl 25 MG Oral Tablet (Zoloft) Take 1 Tablet by mouth in the morning. Midodrine HCl 5 MG Oral Tablet (Proamatine) PLEASE SEE ATTACHED FOR DETAILED DIRECTIONS Trimethobenzamide HCl 300 MG Oral Capsule Take 1 Capsule by mouth in the morning and 1 Capsule at noon and 1 Capsule before bedtime. NEEDED FOR NAUSEA . 30 Capsule 0 Ondansetron HCl 8 MG Oral Tablet Take 1 Tablet by mouth every 8 hours as needed for Nausea. 20 Tablet 0 Mirtazapine 7.5 MG Oral Tablet (Remeron) Take 1 Tablet by mouth at bedtime. Diclofenac Sodium 1 % External Gel Apply topically to affected area. Daily as needed per patient BD Pen Needle Mini U/F 31G X 5 MM LORazepam 0.5 MG Oral Tablet (Ativan) Take 1 Tablet by mouth every 8 hours as needed for Other (nausea). 6 Tablet 0 NovoLIN N 100 UNIT/ML Subcutaneous Suspension (insulin isophane human) Inject under the skin three times a day before meals. Aprepitant 80 MG Oral Capsule (Emend) TAKE 1 CAPSULE (80 MG TOTAL) BY MOUTH DAILY NEEDED (NAUSEAAND/OR VOMITING) Sertraline HCl 100 MG Oral Tablet (Zoloft) Take 1 Tablet by mouth in the morning. hydrALAZINE HCl 50 MG Oral Tablet (Apresoline) Take 1 Tablet by mouth in the morning and 1 Tablet at noon and 1 Tablet before bedtime. Carvedilol 12.5 MG Oral Tablet (Coreg) Take 1 Tablet by mouth in the morning and 1 Tablet before bedtime. Xphozah 30 MG Oral Tablet Take 1 Tablet by mouth 2 times a day with morning and evening meals. Metoclopramide HCl 5 MG Oral Tablet (Reglan) Take 1 Tablet by mouth in the morning and 1 Tablet at noon and 1 Tablet in the evening and 1 Tablet before bedtime. NovoLIN R FlexPen 100 UNIT/ML Injection Solution Pen-injector Inject under the skin. Sliding scale with meals HYDROcodone-Acetaminophen 5-325 MG Oral Tablet 1 Tablet. Warfarin Sodium 5 MG Oral Tablet (Coumadin) Take 1 Tablet by mouth every evening. As directed by Anticoagulation clinic 30 Tablet 5 Pantoprazole Sodium 40 MG Oral Tablet Delayed Release (Protonix) One tablet daily 1/2 hour before breakfast 180 Tablet 3 Current Facility-Administered Medications Medication Dose Route Frequency Provider Last Rate Last Admin bevaCIZumab (Avastin) inj 1.25 mg 1.25 mg Intravitreal PRN Dewayne Flores T, DO 2.75 mg at 04/21/24 0817 ROPivacaine (Naropin) inj 1.5 mg 1.5 mg Perineural PRN Dewayne Flores, DO 1.5 mg at 817 Past Medical History: Diagnosis Date Alcohol abuse Anxiety state C. difficile colitis Calcium nephrolithiasis Calcium oxalate kidney stones Depression Dialysis patient ([facility]) via perm cath DM type 1 causing renal disease, not at goal ([facility]) DM type 1, not at goal ([facility]) 2001 Dyslipidemia, goal LDL below 160 2004 For someone with Diabetes End-stage renal disease on hemodialysis ([facility]) Gastroparesis Kidney failure Pleural effusion PONV (postoperative nausea and vomiting) Retinopathy due to secondary DM ([facility]) Patient Active Problem List Diagnosis Anxiety state Calcium nephrolithiasis DM type 1 causing renal disease, not at goal ([facility]) Hematemesis Type 1 diabetes mellitus with hemoglobin A1c goal of less than 7.0% ([facility]) Dyslipidemia, goal LDL below 100 DKA, type 1 ([facility]) Hypophosphatemia Hypomagnesemia ETOH abuse Hydronephrosis with ureteral calculus Acute pyelonephritis T12 compression fracture ([facility]) Gastroparesis End stage renal disease on dialysis ([facility]) Vitreous hemorrhage of left eye ([facility]) Intractable nausea and vomiting Metabolic alkalosis Thrush Severe malnutrition ([facility]) Pyloric stenosis in adult History of Clostridioides difficile infection Stool culture positive for Clostridium difficile Single subsegmental pulmonary embolism without acute cor pulmonale ([facility]) Pericardial effusion Recurrent pleural effusion on left Secondary DM with hypertension and ESRD on dialysis ([facility]) Hx of diabetic gastroparesis Prolonged QT interval History of DVT in adulthood Past Surgical History: Procedure Laterality Date APPENDECTOMY W/OTHER PROCEDURE BOTULINUMTOXIN A (LUKE), 1 UNIT, INJ. N/A 09/24/2020 INJECTION, ONABOTULINUMTOXIN A, 1 UNIT (BOTOX) performed by Tremaine Martinez MD at OR [facility] COLONOSCOPY, DIAGNOSTIC (RECTUM) N/A 11/20/2022 hemorrhoids/recall 10 years/COLONOSCOPY FLEXIBLE PROXIMAL DIAGNOSTIC performed by Ebonie Mc DO at OR [facility] CYSTOSCOPY/INSERTION OF STENT Left 03/14/2016 CYSTOURETHROSCOPY WITH INSERTION URETERAL STENT performed by Morena Dodge MD at [facility] EGD, FLEXIBLE, DIAGNOSTIC 02/15/2018 reflux esophagitis, repeat 3 mo/[facility] EGD, FLEXIBLE, DIAGNOSTIC 05/17/2018 retained food, otherwise normal/ESOPHAGOGASTRODUODENOSCOPY (EGD), FLEXIBLE, TRANSORAL, DIAGNOSTIC performed by Tim Browne MD at [facility] EGD, FLEXIBLE, DIAGNOSTIC N/A 09/24/2020 severe thrush, esophagitis/mild stenosis of pylorus/100 units botox injected/pylorus dilated/biopsies show mild inflammation of small intestine/ESOPHAGOGASTRODUODENOSCOPY (EGD), FLEXIBLE, TRANSORAL, DIAGNOSTIC performed by Tremaine Martinez MD at OR [facility] EGD, FLEXIBLE, DIAGNOSTIC N/A 11/03/2023 normal/GPOEM performed/ESOPHAGOGASTRODUODENOSCOPY (EGD), FLEXIBLE, TRANSORAL, DIAGNOSTIC performed by Tim Browne MD at OR [facility] EGD, FLEXIBLE, DIAGNOSTIC N/A 08/06/2023 small amount of food stomach/severe pylorospasm, injected with botulinum toxin/EGD/MN FRAGMENT KIDNEY STONE BY SHOCK WAVE X 9 HIP ARTHROSCOPY W/ ACETABULOPLASTY Right 02/11/2019 hip pinning HIP ARTHROSCOPY W/ ACETABULOPLASTY Left 2012 INJECTION OF EYE DRUG Bilateral 04/26/2018 Avastin # 1 OU (consent signed) INJECTION OF EYE DRUG Bilateral 05/28/2018 Avastin #[address] Greenberg INJECTION OF EYE DRUG Bilateral 2018 Avastin #[address] Greenberg INJECTION OF EYE DRUG Bilateral 09/24/2018 Avastin #[address] Greenberg INJECTION OF EYE DRUG Bilateral 11/15/2018 Avatin #[address] Greenberg INJECTION OF EYE DRUG Bilateral 01/07/2019 Avastin # 6 Dr. Mendoza INJECTION OF EYE DRUG Right 03/08/2019 # 7 Avastin OD, Dr. Flores INJECTION OF EYE DRUG Left 03/08/2019 # 7 Avastin OS, Dr. Flores INJECTION OF EYE DRUG Right 06/07/2019 # 8 Avastin OD, Dr. Flores INJECTION OF EYE DRUG Left 06/07/2019 # 8 Avastin OS, Dr. Flores INJECTION OF EYE DRUG Left 10/03/2019 # 9 Avastin OS, Dr. Flores INJECTION OF EYE DRUG Right 12/21/2019 # 9 Avastin OD, INJECTION OF EYE DRUG Left 02/01/2020 # 10 Avastin OS, Dr. Flores INJECTION OF EYE DRUG Right 02/14/2020 # 10 Avastin OD, Dr. Flores INJECTION OF EYE DRUG Right 04/24/2020 # 11 Avastin OD, Dr. Flores INJECTION OF EYE DRUG Left 07/18/2020 # 11 Avastin OS, Dr. Flores INJECTION OF EYE DRUG Right 08/08/2020 # 12 Avastin OD, Dr. Flores INJECTION OF EYE DRUG Left 09/19/2020 # 12 Avastin OS, Dr. Flores INJECTION OF EYE DRUG Right 10/10/2020 Avastin OD #13 Dr. Flores INJECTION OF EYE DRUG Left 01/09/2021 #13 Avastin OS, Dr Flores INJECTION OF EYE DRUG Right 01/30/2021 # 14 Avastin OD, INJECTION OF EYE DRUG Right 04/30/2021 # 15 Avastin OD, Dr. Flores INJECTION OF EYE DRUG Left 06/18/2021 # 14 Avastin OS, Dr. Flores INJECTION OF EYE DRUG Right 08/20/2021 # 16 Avastin OD, Dr. Flores INJECTION OF EYE DRUG Right 10/08/2023 # 17 Avastin OD, Dr. Flores INJECTION OF EYE DRUG Right 01/05/2024 #[address] Flores INJECTION OF EYE DRUG Right 02/25/2024 #19 Avastin OD, Dr. Flores INJECTION OF EYE DRUG Right 04/21/2024 #20 Avastin OD; Dr Flores INSER ALEXEY CAT,W/O PUMP;5YR/OLD Right 10/26/2018 INSERT TUNNELED CENTRAL VENOUS CATHETER AGE 5 OR OLDER performed by Chintan Marley DO at OR [facility] INSERT CANNULA, ARTERY-VEIN, USED CAR MAKE READY MECHANIC 05/19/2019 INTRO CATH DIALYSIS CIRCUIT DX ANGIOGRAPHY FLUORO S&I Left 10/18/2020 AV FISTULOGRAM DIAGNOSTIC performed by Julian James MD at OR [facility] INTRO CATH DIALYSIS CIRCUIT DX ANGIOGRAPHY FLUORO S&I Left 2021 AV FISTULOGRAM DIAGNOSTIC performed by Len Salmeron MD at OR [facility] INTRO CATH DIALYSIS CIRCUIT DX ANGIOGRAPHY FLUORO S&I Left 06/12/2022 AV FISTULOGRAM DIAGNOSTIC performed by Julian James MD at OR [facility] INTRO CATH DIALYSIS CIRCUIT DX ANGIOGRAPHY FLUORO S&I Left 01/08/2023 AV FISTULOGRAM DIAGNOSTIC performed by Julian James MD at OR [facility] INTRO CATH DIALYSIS CIRCUIT W/TRANSLUM BALLOON ANGIOPLASTY Left 10/20/2023 AV FISTULOGRAM & PERIPHERAL ANGIOPLASTY performed by Godwin Sexton MD at OR [facility] LASER SURGERY OF INNER EYE STRANDS Right 07/12/2019 Laser procedure OD, LASER TRABECULOPLASTY 01/13/2008 focal laser left eye Dr Andres LOWER ESOPHAGEAL MYOTOMY, TRANSORAL N/A 11/03/2023 GPOEM/LOWER ESOPHAGEAL MYOTOMY, TRANSORAL (IE, PERORAL ENDOSCOPIC MYOTOMY [POEM]) performed by Tim Browne MD at OR [facility] MISCELLANEOUS ORDER ([facility] ONLY) Removal of wisdom teeth MISCELLANEOUS ORDER ([facility] ONLY) ACT 112 SIGNED 03/08/19 DR. SANDRA TOLENTINO ORDER ([facility] ONLY) Bilateral 03/08/2019-03/08/2020 AVASTIN OU CONSENT SIGNED, Dr. Sandra TOLENTINO ORDER ([facility] ONLY) Bilateral AVASTIN CONSENT SIGNED DR. FLORES 03/13/20-03/13/21 OTHER (INFORMATION) Bilateral AVASTIN OU CONSENT DR. FLORES/ANAND EXP. 03/12/22 OTHER (INFORMATION) Bilateral AVASTIN OU CONSENT DR. FLORES/ANAND EXP. 10/07/24 SHOULDER ARTHROSCOPY/SURGERY Right "years ago" TRANSLUMINAL BALLOON ANGIOPLASTY CENTRAL DIALYSIS SEGMENT W/IMAGING 10/18/2020 ANGIOPLASTY CENTRAL DIALYSIS SEGMENT performed by Julian James MD at OR [facility] TRANSLUMINAL BALLOON ANGIOPLASTY CENTRAL DIALYSIS SEGMENT W/IMAGING Left 2021 ANGIOPLASTY CENTRAL DIALYSIS SEGMENT performed by Len Salmeron MD at [place] [facility] TRANSLUMINAL BALLOON ANGIOPLASTY CENTRAL DIALYSIS SEGMENT W/IMAGING 06/12/2022 ANGIOPLASTY CENTRAL DIALYSIS SEGMENT performed by Julian James MD at [place] [facility] TRANSLUMINAL BALLOON ANGIOPLASTY CENTRAL DIALYSIS SEGMENT W/IMAGING 01/08/2023 ANGIOPLASTY CENTRAL DIALYSIS SEGMENT performed by Julian James MD at [place] [facility] TREATMENT OF EXTENSIVE RETINOPATHY, PHOTOCOAGULATION Left 10/11/2018 PRP OS #1 Dr. Greenberg (new consent) VITRECTOMY/LASER COAGULATION Left 03/28/2020 VITRECTOMY MECHANICAL PARS PLANA APPROACH WITH ENDOLASER PANRETINAL performed by Andrew Aceves MD at OR [facility] Social History Socioeconomic History Marital status: Spouse name: Cinda Number of children: 1 Years of education: 17 Highest education level: Not on file Occupational History Occupation: Disabled on SSI Tobacco Use Smoking status: Never Smokeless tobacco: Former Types: Chew Quit date: 02/10/2019 Vaping Use Vaping status: Never Used Substance and Sexual Activity Alcohol use: Not Currently Comment: Last drink: 12/31/16; 3-4 beers/day x 5 years Drug use: No Comment: In college used marijuana Sexual activity: Yes Partners: Female Other Topics Concern Not on file Social History Narrative in 1998 No pets No mold Social Needs Financial Resource Strain: Not on file Food Insecurity: No Food Insecurity (06/29/2023) Food Insecurity Do you need food for this week? (Adult - for ages 18 years and over): No Are you able to get enough food for your family? (Household - for ages 0-17 years): Not on file Does your family need food this week? (Household - for ages 0-17 years): Not on file Do you always have enough food for your family? (Household - for ages 0-17 years): Not on file Transportation Needs: No Transportation Needs (06/29/2023) Transportation Needs Do you have trouble getting a ride to medical visits or work? (Adult - for ages 18 years and over):Never True Does your family have a hard time getting a ride to doctors visits? (Household - for ages 0-17 years): Not on file Has lack of transportation kept you from medical appointments, meetings, work, or from getting things needed for daily living? Check all that apply. (Adult - for ages 18 years and over): Not on file Do you (or your family) have trouble finding or paying for a ride (transportation)? (Household - for ages 0-17 years): Not on file Social Connections: Not on file Housing Stability: Low Risk (06/29/2023) Housing Stability Do you currently live in a assisted or have no steady place to sleep at night? (Adult - for ages 18 years and over): Not on file Do you think you are at risk of becoming homeless? (Adult - for ages 18 years and over): No Does your family worry about paying for your home or becoming homeless? (Household - for ages 0-17 years): Not on file Are you homeless or worried that you might be in the future? (Adult - for ages 18 years and over): Not on file Are you (or your family) homeless or worried that you might be in the future? (Household - for ages0-17 years): Not on file Family History Problem Relation Name Age of Onset Genitourinary Disorder Mother Kidney stones Skin cancer Mother Hypertension Father Urolithiasis Brother Calderon Hypertension Brother Calderon Diabetes Grandfather (Maternal) "Borderline", diet controlled Genitourinary Disorder Grandfather (Maternal) Kidney stones Macular degeneration Grandfather (Maternal) Heart Disorder Grandmother (Paternal) of a heart attack at age 86 Cancer Grandmother (Maternal) Breast Cancer Grandmother (Maternal) Heart Disorder Grandfather (Paternal) of a heart attack at age 64 Family History; none relevant to today's HPI Objective: Physical Exam There were no vitals filed for this visit. Estimated body mass index is 21.94 kg/m as calculated from the following: Height as of 11/03/23: 1.727 m (5' 8"). Weight as of 11/19/23: 65.5 kg (144 lb 4.8 oz). General: generally well-nourished and in no acute distress HEENT: normocephalic, atraumatic, sclera anicteric. Psych: mood and affect normal , cooperative Card: Peripheral pulses: normal in affected extremity (s) Resp: equal chest rise, non-tachypneic, non-labored breathing Skin: no rash, normal Neuro: Sensation: normal on affected extremity (s) Knee Exam, Bilateral Inspection: Grade 3 effusion. No obvious deformity, no redness, warmth, bruising, abrasion. Palpation: tenderness to palpation along lateral tibia ROM: Full knee extension. Flexion is limited with pain Strength: R- Strength: Extension - 5/5 Flexion - 5/5 L - Strength: Extension - 5/5 Flexion - 5/5 Special Tests: ACL: Shin - negative Bilateral Ant Drawer: negative Bilateral PCL: Sag - negative Bilateral Post Drawer - negative Bilateral MCL: Medial Opening @ 30: +Laxity on the left LCL: Lateral Opening @ 30: +Laxity on the left Radiology (I have personally reviewed the following films): Two-view x-ray of the left knee was obtained at [facility] and reviewed with patient. Those x-rays show a depressed lateral plateau fracture Assessment and Plan: Closed fracture of left tibial plateau, initial encounter (Primary) - CT LOWER EXTREMITY LEFT WO CONTRAST; Future; Expected date: 04/21/2024 Recommend hinged knee brace locked at 30. Advised to remain nonweightbearing. Recommend CT for further evaluation. Encouraged ice. Judie Sanchez PA-C isinger Orthopaedics [facility] [address] [facility] [place] [id number] documented in this encounter Nursing Notes * Danial Pabon CMA - 04/21/2024 8:51 AM EST PT is here accompanied with dad for L knee fx. PT was seen at [facility] 04/20/24 DOI: 04/12/24 Was raking and tripped over a root twisting knee. Pt walked on it for a til until was getting nausea PT is here today in a brace documented in this encounter Miscellaneous Notes * Addendum Note - Fay Mendoza MED ASSIST - 04/26/2024 9:53 AM ESTAddended by: FAY MENDOZA on: 04/26/2024 09:53 AM Modules accepted: Orders documented in this encounter Plan of Treatment Upcoming Encounters Date Type Department Care Team (Late st Contact Info) Description 05/03/2024 9:50 AM EST Anticoagulation Pharmacy, [place] [address] [place] [address] [facility] [address] [place] [address] 05/24/2024 9:00 AM EST Office Visit Orthopaedics [facility] [address] [facility] [place] [address] Judie Sanchez PA-C [address] [facility] [place] [address] 06/21/2024 8:30 AM EST Office Visit Ophthalmology, [facility] [address] [facility] [place] [address] Dewayne Flores DO [address] [place] [address] 07/11/2024 9:00 AM EST Office Visit Transplant Clinic, [place] [address], [place] [phone] Marium Forbes MD [address] [place] [phone] Cory Razo MD [address], [place] [phone] Nurse Victor Manuel Renal Transplant [address] [place], [place] [phone] Sophie Morillo LSW [address], [place] [phone] 07/11/2024 1:00 PM EST Laboratory Outpatient Laboratory, [place] [address] [place] [address] [place], Lab B1a [address] [place] [address] Scheduled Procedures Name Priority Associated Diagnoses Date/Ti me COLONOSCOPY FLEXIBLE PROXIMA L DIAGNOSTIC Recall Screening for colon cancer Health Maintenance Due Date Last Done Comments Depression Screening 1982 DTap/Tdap Vaccines (1 - Tdap) 1989 Hepatitis B Vaccine (1 of 3 - 19+ 3-dose series) 1989 Zoster Vaccines (1 of 2) 1989 Pneumococcal Vaccine: Pediatrics (0 to 5 Years) and At-Risk Patients (6 to 64 Years) (3 of 3 - PCV) 04/05/2013 04/05/2012, 03/31/2007 Cologuard 08/28/2015 Fecal Occult Blood Test 08/28/2015 Sigmoidoscopy 08/28/2015 Diabetic Foot Exam 05/18/2016 05/18/2015, 0 08/31/2008, 06/16/2007, Additional history exists Influenza Vaccine (FLU shot) (#1) 2024 04/08/2022, 03/25/2021, 03/05/2020, Additional history exists HbA1c 05/07/2024 11/06/2023, 02/0 11/2023, 06/30/2023, Additional history exists Diabetic Eye Exam 04/21/2025 04/21/2024, , 11/19/2022, Additional history exists Lipid Panel 08/19/2028 08/20/2023, 02/0 02/2021, 06/09/2019, Additional history exists Colonoscopy 11/20/2032 11/20/2022, 11/20/2022 Colorectal Cancer Screening 11/20/2032 COVID-19 Vaccine Completed 04/05/2024, , 08/10/2020, Additional history exists HPV (Gardasil) Vaccine Aged Out No lo nger eligible based on patient's age to complete this topic MENINGOCOCCAL (MENACTRA/MENVEO) Aged Out No longer eligible based on patient's age to complete this topic documented as of this encounter Medical Devices Not on filedocumented as of this encounter Results * CT LOWER EXTREMITY LEFT WO CONTRAST (04/21/2024 10:20 AM EST) Anatomical Region Laterality Modality Lower Extremity, Ankle, Femu r, Foot, Hip, Knee, Musculoskeletal, TibFib Computed Tomography 04/21/2024 2:14 PM EST Impressions 04/21/2024 2:12 PM EST IMPRESSION Depressed articular fracture of the medial tibial plateau. Narrative 04/21/2024 2:[address] LOWER EXTREMITY LEFT WO CONTRAST-LT 04/21/2024 10:20 am HISTORY Provided clinical history: "Tibia plateau fracture" COMPARISON None. TECHNIQUE CT scan of the left knee was performed without IV contrast, and multiplanar reformats are provided. FINDINGS Bones and joints: Depressed articular fracture of the medial tibial plateau. Lateral plateau is intact. Mild background tricompartmental osteoarthritis of the left knee. Subjective osteopenia. Moderate joint effusion. Soft tissues: Chronic atrophy of the popliteus muscle, likely sequela of a prior injury. Visualized tendons are grossly intact. Atherosclerotic calcifications. Procedure Note BiggerAftab MD - 04/21/[address] LOWER EXTREMITY LEFT WO CONTRAST-LT 04/21/2024 10:20 am HISTORY Provided clinical history: "Tibia plateau fracture" COMPARISON None. TECHNIQUE CT scan of the left knee was performed without IV contrast, andmultiplanar reformats are provided. FINDINGS Bones and joints: Depressed articular fracture of the medial tibial plateau. Lateralplateau is intact. Mild background tricompartmental osteoarthritis of theleft knee. Subjective osteopenia. Moderate joint effusion. Soft tissues: Chronic atrophy of the popliteus muscle, likely sequela of a prior injury.Visualized tendons are grossly intact. Atherosclerotic calcifications. IMPRESSION IMPRESSION Depressed articular fracture of the medial tibial plateau. 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
--- OUTSIDE RECORDS SUMMARY | 2024-04-28 08:11 | External Medical Summary | Summary of Care ---
Author Name Unknown Organization [facility] Address [address] [place] [address] Phone [phone] Care Team Providers Care Zipper Machine Operator Name Role Phone Genet Cool MD Primary Care Provid er Reason for Visit * Reason Onset Date Comments Test Results 04/22/2024 Encounter Details Date Type Department Care Team (Late st Contact Info) Description 04/22/2024 Telephone Orthopaedics [facility] [address] [place] [address] Sharer, Judie White PA-C [address] [place] [address] Test Results Allergies Active Allergy Reactions Criticality Noted Date Comments Codeine Itching 05/24/2019 Promethazine Hcl Hives 10/19/2010 Shellfish-Derived Products Anaphylaxis High 04/26/20 18 documented as of this encounter (statuses as of 04/25/2024) Medications [facility] STRPIndications: DKA, type [...] in the morning. 12/17/19 19 Active B Geqtvnj-Y-Uicty Acid (RENAL VITAMIN) 1 MG Capsule TAKE [...] PLEASE SEE ATTACHED FOR DETAILED DIRECTIONS 05/14/20 22 Active Trimethobenzamid e HCl 300 MG Oral [...] as of this encounter (statuses as of 04/25/2024) Active Problems Problem Noted Date Diagnosed Date [...] fracture 03/15/2016 ETOH abuse 04/05/2012 Overview (04/05/2012): [facility] Admission with DKA March 2012 [...] as of this encounter (statuses as of 04/25/2024) Resolved Problems Problem Noted Date Diagnosed Date [...] as of this encounter (statuses as of 04/25/2024) Immunizations Name Administration Dates Next Due COVID-19 mRNA, LNP-s, No Pre serve, 2-Dose Series (Moderna) 08/10/2020,07/17/2020 PPD 06/18/2009,04/03/2008 Pneumococcal Conjugate Vacci ne, 20-valent ([id number]) 10/20/2023(Deferred: Contraindication) Pneumococcal Polysaccharide PPV23 (Pneumovax) 04/05/2012,03/31/2007 [...] Assessment Author No 06/29/2023 9:31 PM Anabel Tucker, CHING * Do you have difficulty dressing or bathing? (5 years old or older) Answer Date of Assessment Author No 06/29/2023 9:31 PM Anabel Tucker, CHING * Because of a physical, mental, or [...] Anabel Tucker RN documented in this encounter Miscellaneous Notes * Telephone Encounter - Alma Sen OSA - 04/25/2024 4:59 PM EST Pt scheduled for 1 mo f/u * Telephone Encounter - Judie Sanchez PA-C - 04/25/2024 3:59 PM EST Reviewed images with Dr. Cummings who agreed with conservative management. This injury may affect his knee alignment over time and result varus position. Typically Tylenol, bracing, and ice will control pain. If he would like something more recommend discussing with PCP given medical comorbidities. Continue to remain non weight bearing. Recommend follow up in 1 month. May unlock brace for full range of motion. Please schedule follow up appointment with me in 1 month. * Telephone Encounter - Daxa Eastman OSA - 04/25/2024 10:36 AM EST Pt called, saw Judie 04/21 for fracture, states he is taking tylenol but that isn't cutting it andwas wondering if he could get something stronger for the pain, please advise.Please call the home number and you can talk to his parents as they are his POA. Thanks. * Telephone Encounter - Gerry Sweeney OSA - 04/22/2024 2:40 PM EST Who is Requesting Test Results: Patient Primary Care Provider : Genet Cool MD Tests Results Requested : CT Lower left extremity Date of Test : 04/21 Location of Test: [place] [facility] Ordering Provider: Judie Sanchez Patient has been made aware that the turnaround time for test results are typically as follows: Laboratory results = within 2-3 days ([facility]), 3-5 days (Non-[facility], ie. [facility]) Urine Cultures = within 2-3 days depending on growth within the culture Pathology results (biopsy results/PAP) = 1-2 weeks Radiology results = about 1 week Cologuard results = within 2 weeks from the shipment date COVID testing = about 24 hours documented in this encounter Plan of Treatment Upcoming Encounters Date Type Department Care Team (Late st Contact Info) Description 05/03/2024 9:50 AM EST [facility] [place] [address] [address] [facility] [address] [facility] [address] [place] [address] 05/24/2024 9:00 AM EST Office Visit Orthopaedics [facility] [address] [place] [address] Judie Sanchez PA-C [address] [place] [address] 06/21/2024 8:30 AM EST Office Visit Ophthalmology, [facility] [address] [place] [address] Dewayne Flores DO [address] [place] [address] 07/11/2024 9:00 AM EST Office Visit [facility] [place] [address] Marium Forbes MD [address] [place] [phone] Cory Razo MD [address] [place] [address] Victor Manuel Nurse Renal Transplant [address] [place] [address] Sophie Morillo, MANAGER RENTAL [address] [place] [address] 07/11/2024 1:00 PM EST Laboratory Outpatient Laboratory, [place] [address] [place] [phone] [place], Lab B1a [address] [place], [place] [phone] Scheduled Procedures Name Priority Associated Diagnoses Date/Ti [...] Documents on File Type Date Recorded Patient Broadcast Field Supervisor Expl anation Power of Image Scientist 01/15/2021 POWER OF A TTORNEY * Full [...] Advance Directives occurred with: Patient Care Teams Zipper Machine Operator Relationship Specialty Start Date End Date Genet Cool MD [address] [place] [address] [place] [address] PCP - General Internal Medicine 01/06/23 documented as of this encounter
--- NOTE | 2024-04-28 08:39 | Nephrology Consultation ---
Date of Consultation April 28, 2024 Assessment & Plan (1) Dialysis patient: he is not hypoxic; no effusion or edema on cxr, HTN relatively well controlled hypokalemic (K 3.3) and acid base status acceptable No indication to make up missing 2 hours of dialysis at this time > focus first on controlling knee pain and monitoring /controlling n/v next HD 04/29 per routine > orders in ; midodrine w/ HD >pls ask pt to bring in his OP phos medication, tenapor, for phos control when taking regular po >> asked RN to review w/ pt Care coordinated w/ Dr Townsend re pain mgt and dialysis plans, phos management via TText; we are in agreement. (2) Nausea & vomiting: per primary service; no prn meds have been required so far since admission; consider advance diet and focus on pain control cont prn aprepitant (3) Tibial plateau fracture, left: no nsaids; else defer to primary service for pain control strategies (4) Diabetic gastroparesis: per primary service; doubt a role here History of Present Illness Reason for Consultation: HD MWF Requesting Physician: Dr Martin Attending Physician: Guevara Townsend MD History of Present Illness 53 y/o M whom I'm asked to see for MWF HD was admitted yesterday with intractable N/V that began while on HD yesterday AM and caused him to terminate treatment about 2 hours early (he had 130 min of 240 min tx). PMH includes ESRD on in center HD, cyclic vomiting syndrome, type I DM w/ proliferative retinopathy, nonocclusive CAD, GERD, HTN w/ labile BP and autonomic dysfunction, nephrolithiasis, and anemia of chronic disease. He's been hospitalized here multiple times in the past few months for intractable n/v related to gastroparesis/CVS. Past chronic L pleural effusion managed Jan 2021-Jun 2021 w/ pleurex catheter; 09/2023 a/r RLE DVT also has remote hx of PE on AC; hx of Covid 07/2021. He dialyzes under my care MWF via [facility] at [facility]. he has in the past had a series of LE fractures but they have been more frequent past 6 mos > 09/2023 w/ multiple R metatarsal /Charcot variang fractures. Injured L knee 04/12 and on 04/21 dx'd w/ closed L tibial plateau fracture; he is for conservative mgt w/ non WB and tylenol. For upcoming OP CT scan to f/u w/ [facility]. He is adherent w/ his HD treatments and does not shorten or miss; he does often struggle with excessive IDWG and high phosphorus but recently in the past 4-5 wks has done much better w/ volume and diet management. he has not had further N/V since arrival he tells me; states "I think it was anxiety about how bad my knee pain has been" that made him throw up. Denies sob, cough, orthopnea; denies chills or subjective F; no current issues w/ abd pain, n/v/dry heaving; no change in bowel hapbits and no constipation. No focal numbness/weakness, no confusion; no rash; no chest pain or palpitations. He came in for dialysis yesterday already quite close to target weight at 67.8 kg and left at TW 67.5 kg Allergies Allergy/AdvReac Type Severity Reaction Status Date / Time shellfish derived Allergy Severe anaphylaxis Verified 03/31/24 11:52 codeine Allergy Intermediate Hives Verified 03/31/24 11:52 promethazine Allergy Intermediate itchy/hives Verified 03/31/24 11:52 Home Medications Medication Instructions Recorded Confirmed Type acetaminophen 325 mg capsule 650 mg PO Q4H PRN Pain (Scale 09/28/20 04/27/24 History Score 1-3) melatonin 1 mg tablet 4 mg PO HS PRN Sleep 09/18/22 04/27/24 History midodrine 5 mg tablet 5 mg PO .COMPLEX 02/19/23 04/27/24 History mirtazapine 7.5 mg tablet 7.5 mg PO HS 02/19/23 04/27/24 History lorazepam 0.5 mg tablet 0.5 mg PO Q8H PRN severe nausea 04/24/23 04/27/24 Rx #30 tabs pantoprazole 40 mg tablet,delayed 40 mg PO QAM #90 tabs 11/12/23 04/27/24 Rx release (Protonix) aprepitant 80 mg capsule 80 mg PO DAILY PRN NAUSEA/VOMITING 12/06/23 04/27/24 History ascorbic acid (vitamin C) 500 mg 500 mg PO QAM 12/06/23 04/27/24 History tablet,extended release (Vitamin C ER) cholecalciferol (vitamin D3) 50 50 mcg PO QPM 12/06/23 04/27/24 History mcg (2,000 unit) capsule (Vitamin D3) warfarin 5 mg tablet 5 mg PO DAILY 12/06/23 04/27/24 History tenapanor 30 mg tablet (Xphozah) 30 mg PO BID 12/08/23 04/27/24 History insulin pump cart,automated,BT #10 ea 12/29/23 04/05/24 Rx (Omnipod 5 G6 Pods (Gen 5) subcutaneous cartridge) insulin pump cartridge,automated #1 ea 12/29/23 04/05/24 Rx dose,BT with controller subcutaneous (Omnipod 5 G6 Intro Kit (Gen 5) subcutaneous cartridge with controller) pen needle, diabetic 31 gauge x #100 ea 01/01/24 04/05/24 Rx 1/4" (Droplet Pen Needle) carvedilol 12.5 mg tablet 12.5 mg PO BID #180 tabs 02/11/24 04/27/24 Rx insulin lispro 100 unit/mL 60 unit subcut DAILY 04/19/24 04/27/24 History subcutaneous solution (Admelog U-) ondansetron 4 mg disintegrating 4 mg PO Q12H PRN nausea and 04/25/24 04/27/24 Rx tablet vomiting 3 days #9 tabs atorvastatin 20 mg tablet 20 mg PO QPM 04/27/24 04/27/24 History Patient History Medical History Deep vein thrombosis (DVT) of right lower extremity History of nephrolithiasis Metatarsal fracture Urolithiasis Surgical History History of colonoscopy S/P arteriovenous (AV) fistula creation left arm History of cataract surgery History of esophagogastroduodenoscopy (EGD) (~03/08/20) History of open reduction and internal fixation (ORIF) procedure right hip Nausea and vomiting after administration of anesthetic agent History of lithotripsy History of cardiac cath x2---07/28/23 @ [facility], no stents--per pt done for transplant list and 10/2018 @ [facility] (no stents) History of hip surgery left HIP ARTHROSCOPY H/O shoulder surgery RIGHT History of appendectomy Family History Grandfather Myocardial infarction Grandfather (Maternal) Family history of diabetes mellitus Uncle Myocardial infarction Father Hypertension Mother Kidney stone Other No family history of adverse response to anesthesia Denies family history of Colon cancer Ovarian cancer Prostate cancer Breast cancer Social History Smoking Status: Never smoker Tobacco Type: Smokeless Tobacco (Dip or Chew) Second Hand Exposure: No; Do You Dip or Chew Tobacco: No; Hx Alcohol Use: No Hx Substance Use: No Preferred Language: Lao Communication Ability: Effective Visual Impairment: No Limitations Hearing Ability: Normal Junior Qa Analyst Required: No Beliefs That Will Affect Care: None marital status: Current Living Situation: Family Current Living Situation Comment: Lives with parents current occupational status: disabled How many Children do You have: 2 Feels Safe at Home: Yes Childhood Exposure to Second-Hand Smoke: Yes Diet: regular caffeine: Yes Dental Care, Regularly: No Physical Activity Frequency: 1-2 Times per Week Seatbelt Use: always Sunscreen Use: Yes Gender Identity: Male Assistive Devices: Glasses and Walker Review of Systems 2 Review of Systems: All systems reviewed & are unremarkable except as noted in HPI & below Physical Exam 2 Constitutional: well developed (sitting in bed on RA watching TV) and well nourished; no acute distress Eyes: EOM intact bilaterally ENMT: Mouth: + dry oral mucous membranes Respiratory: normal respiratory effort Auscultation: + diminished lung sounds Cardiovascular: Rate/Rhythm: regular rate and regular rhythm Extremities: + AV fistula ( + t/b); no edema Gastrointestinal (Abdomen): Inspection/Auscultation: normal bowel sounds P ercussion/Palpation: abdomen soft; abdomen nontender Musculoskeletal: Extremities: strength 5/5 throughout (L knee in brace) Skin: no rashes, warm and dry Neurologic: spicer, fluent speech, no tremor Psychiatric: Orientation: alert and oriented x 3 Speech: normal rate/rhythm/volume of speech Affect: euthymic affect Results & Data Vital Signs (Past 12 Hours) Vital Signs Temp Pulse Pulse Resp BP Pulse Ox O2 Del Method 04/28/24 07:51 36.5 C 74 18 152/62 H 93 Room Air 04/28/24 07:25 73 04/28/24 03:37 36.6 C 79 16 122/69 94 Room Air 04/28/24 00:00 72 04/27/24 23:10 36.3 C L 69 16 130/56 L 93 Room Air Laboratory Results 04/28/24 06:00 04/28/24 06:00 Diagnostic Findings CXR (images personally reviewed; agree w/ report) Cardiomegaly with mild chronic interstitial coarsening. Minimal left basilar atelectasis. No pneumothorax, pleural effusion or airspace consolidation. IMPRESSION: No acute processes of the chest. (2) Nausea & vomiting Vomiting type: unspecified Qualified Code(s): R11.2 - Nausea with vomiting, unspecified
[2024-04-28] MEDS: PANTOprazole 40 MG TAB PO SCH (09:35)
[2024-04-28] MEDS: hydrALAZINE HCL 25 MG TAB PO SCH (09:36)
[2024-04-28] MEDS: POTASSIUM CHLORIDE CRTAB 20 MEQ TABCR PO STA (09:39)
[2024-04-28] MEDS: HYDROCODONE/ACETAMOPHEN 5/325MG TAB PO PRN (11:56)
[2024-04-28] MEDS: ONDANSETRON INJ 2 MG/ML 2 ML VIAL IV PRN (12:24)
--- NOTE | 2024-04-28 12:32 | Hospitalist Progress Note ---
Date of Service April 28, 2024 Assessment & Plan (1) Nausea & vomiting: Plan: patient with history of gastroparesis has seen GI/motility clinic in [place] for this in the past has trialed on various prokinetic agents over the years for such remeron was effective at helping his gastroparesis current symptoms could be from gastroparesis vs gastritis vs biliary (prior CT a/p with gallstones) vs other cont PPI cont zofran and ativan prn treat his pain - added norco for L knee pain (narcotics, however, can make gastroparesis worse) low threshold to recheck his biliary system if he has persistent symptoms of note - lipase wnl; lfts largely wnl (alk phos scantly elevated only) (2) Tibial plateau fracture, left: Plan: recent dx initially seen by [facility] at their walk-in clinic at [facility] 100% non-weight bearing status advised along with hinged brace locked at 30 degrees has f/u with orthopedics in early May for such add norco prn pain control check 25-OH Vit D level am (3) Gastroparesis: Plan: Likely the cause of #1 Continue aprepitant p.o. daily PRN IV metoclopramide 10 mg IV q6h PRN Zofran prn ativan prn (4) ESRD (end stage renal disease): Plan: HD on / He reports he only got through approximately half of his dialysis session on Friday 04/27 [facility] nephrology consult appreciated for HD needs next HD - tomorrow (5) Hypertension: Plan: uncontrolled likely due to pain, nausea, etc. 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, with long- term current use of insulin: Plan: Last A1c at 9.3% on 12/07/2023 Current A1c 7% Awaiting kidney/pancreas transplant and needs A1c <8% Patient was started on OmniPod on 03/01, and per review of last diabetes clinic note 04/15, he has been doing very well Per diabetes note on 04/15: TDD 26 u/day Continue insulin pump while inpatient Advance diet to full liquids diet Pharmacy glycemic consult appreciated (7) History of pulmonary embolism: Plan: On warfarin therapy INR therapeutic this am at 2.8 repeat INR am Plan PT, OT while here Admission and Anticipated Discharge Date Admission Date: April 27, 2024 Subjective still having some nausea and vomiting feels that the pain in his left knee from his recent tibial fracture is the culprit for this the pain has taken away his appetite his pain is constant but certainly worse with ambulation was seen by [facility] - walk-in clinic at [facility] - and was told to be 100% non-weightbearing with a locked hinged brace he has the brace here in the hospital room denies any significant abd pain no RUQ pain moving his bowels denies any fevers or chills denies any pulmonary symptoms tele overnight wnl Review of Systems Review of Systems: cv - no orthopnea or cp pulm - no cough or dyspnea Physical Exam Physical Exam: gen - lying flat in bed, c/o nausea; had emesis x 1 mouth - MM dry neck - no JVD heart - RRR, s1 s2, 2/6 systolic murmur LUSB lungs - CTA b/l abd - soft NT ND BS+ ext - no edema, pulses 2+ b/l musculo - mild swelling about the left knee, mildly tender tibial plateau region Results & Data Results & Data Vital Signs (Past 12 Hours) Vital Signs Temp Pulse Pulse Resp BP Pulse Ox O2 Del Method 04/28/24 11:07 36.6 C 78 18 174/77 H 96 Room Air 04/28/24 07:51 36.5 C 74 18 152/62 H 93 Room Air 04/28/24 07:25 73 04/28/24 03:37 36.6 C 79 16 122/69 94 Room Air Laboratory Results Laboratory Results - last 24 hr 04/28/24 04/28/24 04/28/24 06:00 08:17 12:27 WBC 7.85 RBC 3.31 L Hgb 10.7 L Hct 33.3 L MCV 100.6 H MCH 32.3 MCHC 32.1 RDW Std Deviation 49.1 H RDW Coeff of Kami 13.4 Plt Count 348 MPV 9.0 L Immature Gran % (Auto) 0.4 Neut % (Auto) 59.1 Lymph % (Auto) 26.5 Overton % (Auto) 11.3 Eos % (Auto) 1.9 Baso % (Auto) 0.8 Neut # (Auto) 4.64 Lymph # (Auto) 2.08 Overton # (Auto) 0.89 H Eos # (Auto) 0.15 Baso # (Auto) 0.06 Immature Gran # (Auto) 0.03 PT 27.6 H INR 2.8 H Sodium 143 Potassium 3.3 L Chloride 95 L Carbon Dioxide 36 H Anion Gap 12 H BUN 23 Creatinine 6.60 H* D Est Cr Clr Drug Dosing 12.2 eGFR 9.35 BUN/Creatinine Ratio 3.5 L Glucose 122 H POC Glucose 161 H 119 H Estimat Average Glucose 154 Hemoglobin A1c 7.0 H Calcium 8.1 L Magnesium 2.1 Total Bilirubin 0.6 AST 9 L ALT 6 L Alkaline Phosphatase 117 H Total Protein 6.5 Albumin 3.6 Globulin 2.9 Albumin/Globulin Ratio 1.2 Nasal Screen MRSA (PCR) 04/28/24 04/28/24 17:06 20:13 WBC RBC Hgb Hct MCV MCH MCHC RDW Std Deviation RDW Coeff of Kami Plt Count MPV Immature Gran % (Auto) Neut % (Auto) Lymph % (Auto) Overton % (Auto) Eos % (Auto) Baso % (Auto) Neut # (Auto) Lymph # (Auto) Overton # (Auto) Eos # (Auto) Baso # (Auto) Immature Gran # (Auto) PT INR Sodium Potassium Chloride Carbon Dioxide Anion Gap BUN Creatinine Est Cr Clr Drug Dosing eGFR BUN/Creatinine Ratio Glucose POC Glucose 123 H Estimat Average Glucose Hemoglobin A1c Calcium Magnesium Total Bilirubin AST ALT Alkaline Phosphatase Total Protein Albumin Globulin Albumin/Globulin Ratio Nasal Screen MRSA (PCR) Negative PG Care Time/CCT Total # of Minutes Spent Total Time Spent with Patient: Total time spent is greater than 50% in coordination of care (as documented) at patient's floor/unit and/or counseling patient: Coding Level of Care Code 55624 SUB INP/OBS CARE 2/35MIN Diagnoses Nausea & vomiting R11.2 Tibial plateau fracture, left S82.142A Gastroparesis K31.84 ESRD (end stage renal disease) N18.6 Hypertension I10 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
[2024-04-28] MEDS: LORazepam 2 MG/1 ML VIAL IV PRN (13:23)
[2024-04-28] MEDS: METOCLOPRAMIDE HCL INJ 5 MG/ML 2 ML VIAL IV PRN (16:06)
[2024-04-28] MEDS: WARFARIN SOD 5 MG TAB PO SCH (16:57)
[2024-04-29 07:16] LABS: Calcium 7.8 mg/dl (8.6-10.3); Creatinine Clr Calc Pharmacy 9.4 ml/min; Potassium 3.5 mmol/L (3.5-5.1)
[2024-04-29 07:20] LABS: INR 3.3 (0.9-1.1); Prothrombin Time 32.4 Seconds (9.0-12.0)
[2024-04-29 07:34] LABS: Folate (Folic Acid),Ser orPlas 9.18 ng/ml (>5.38)
--- NOTE | 2024-04-29 11:41 | Nephrology Progress Note ---
Date of Service April 29, 2024 Assessment & Plan (1) Dialysis patient: Plan: he is not hypoxic; no effusion or edema on cxr, HTN relatively well controlled on presenttino but up today hypokalemic (K 3.5) and acid base status acceptable > focus on controlling knee pain and monitoring /controlling n/v >>hgb 10.7 > no anemia meds indicated on treatment today >for routine HD today next HD 05/02 per OP routine; midodrine w/ HD pt to resume his regular phosphorus binders after d/c Care coordinated w/ Dr Townsend re pain mgt and dialysis plans, phos management via TText; we are in agreement. (2) Nausea & vomiting: Plan: per primary service; no prn meds have been required so far since admission; consider advance diet and focus on pain control cont prn aprepitant (3) Tibial plateau fracture, left: Plan: no nsaids; else defer to primary service for pain control strategies (4) Diabetic gastroparesis: Plan: per primary service; doubt a role here Admission and Anticipated Discharge Date Admission Date: April 27, 2024 Subjective no interval events in cluding no emesis; denies n; feels pain better controlled Review of Systems 2 Review of Systems: All systems reviewed & are unremarkable except as noted in Subjective Physical Exam 2 Constitutional: well developed and well nourished; no acute distress Eyes: EOM intact bilaterally ENMT: Mouth: + dry oral mucous membranes Respiratory: normal respiratory effort Auscultation: + diminished lung sounds Cardiovascular: Rate/Rhythm: regular rate and regular rhythm Extremities: + AV fistula ( + t/b); no edema Musculoskeletal: Extremities: strength 5/5 throughout (L knee in brace) Skin: no rashes, warm and dry Psychiatric: Orientation: alert and oriented x 3 Speech: normal rate/rhythm/volume of speech Affect: euthymic affect Results & Data Vital Signs (Past 12 Hours) Vital Signs Temp Pulse Pulse Resp BP Pulse Ox O2 Del Method 04/29/24 07:53 36.5 C 75 18 183/73 H 91 Room Air 04/29/24 07:45 Room Air 04/29/24 07:08 71 04/29/24 03:25 36.5 C 72 16 154/68 H 94 Room Air Laboratory Results 04/28/24 06:00 11/22/24 05:56 (2) Nausea & vomiting Vomiting type: unspecified Qualified Code(s): R11.2 - Nausea with vomiting, unspecified
[2024-04-29 11:42] VITALS: O2SAT 97
[2024-04-29 16:21] VITALS: RESP 18; TEMP 98.2
[2024-04-29] MEDS: HEPARIN SOD (PORCINE) 1000 UNIT/ML IV SCH (16:27)
[2024-04-29] MEDS: HEPARIN SOD (PORCINE) 1000 UNIT/ML IV ONE (16:27)
[2024-04-29] MEDS: WARFARIN SOD 2.5 MG TAB PO SCH (16:32)
[2024-04-29 18:19] VITALS: BP 179/80; PULSE 77
--- NOTE | 2024-04-29 18:25 | Discharge Summary ---
Discharge Summary Date of Service April 29, 2024 Principal Dx & Hospital Course #1 = Principal Diagnosis (1) Nausea & vomiting: patient with history of gastroparesis has seen GI/motility clinic in [place] for this in the past has trialed on various prokinetic agents over the years for such remeron was effective at helping his gastroparesis current symptoms could be from gastroparesis vs gastritis vs biliary (prior CT a/p with gallstones) vs other cont PPI cont zofran and ativan prn treat his pain - added norco for L knee pain (narcotics, however, can make gastroparesis worse) low threshold to recheck his biliary system if he has persistent symptoms of note - lipase wnl; lfts largely wnl (alk phos scantly elevated only) (2) Tibial plateau fracture, left: recent dx initially seen by [facility] at their walk-in clinic at [facility] 100% non-weight bearing status advised along with hinged brace locked at 30 degrees has f/u with orthopedics in early May for such add norco prn pain control check 25-OH Vit D level am (3) Gastroparesis: Likely the cause of #1 Continue aprepitant p.o. daily PRN IV metoclopramide 10 mg IV q6h PRN Zofran prn ativan prn (4) ESRD (end stage renal disease): HD on He reports he only got through approximately half of his dialysis session on Friday 04/27 [facility] nephrology consult appreciated for HD needs next HD - tomorrow (5) Hypertension: uncontrolled likely due to pain, nausea, etc. 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, with long- term current use of insulin: Last A1c at 9.3% on 12/07/2023 Current A1c 7% Awaiting kidney/pancreas transplant and needs A1c <8% Patient was started on OmniPod on 03/01, and per review of last diabetes clinic note 04/15, he has been doing very well Per diabetes note on 04/15: TDD 26 u/day Continue insulin pump while inpatient Advance diet to full liquids diet Pharmacy glycemic consult appreciated (7) History of pulmonary embolism: On warfarin therapy INR therapeutic this am at 2.8 repeat INR am Plan PT, OT while here Admission HPI Per Admitting Provider Jorge Alberto is a 53-year-old male with PMH of CAD, ESRD on dialysis, T1DM, gastroparesis, GERD, and HTN. He presented via EMS on 04/27 from the dialysis center for acute onset of vomiting. Father at bedside. Patient reports that he got through about approximately half of his dialysis session today when he started to feel nauseous and started vomiting. He denies any blood in his vomit or coffee-ground emesis. Patient does not usually take morning medications prior to dialysis, so he has not taken any medications today. He reports good compliance with taking his medications, and last took warfarin last night. No recent change in diet. He has had several episodes of vomiting this past week, and is unsure what triggers them. Patient reports that he felt fine when he woke up this morning. No sick contacts. No fever this week, but patient does report he feels "hot" while in the ED. No prior history of bowel obstructions. He does have a history of appendectomy, and had a procedure to have his pyloric ring clipped in December 2023. Patient denies any abdominal pain at this time; 0/10 abdominal pain. No diarrhea or change in bowel habits. He is anuric at baseline, and gets hemodialysis M/W/F; follows with [facility] nephrology (Dr. Higgins). He is currently trying to get down his A1c for renal/pancreatic transplant. Patient has been taking Zofran and Tigan at home for vomiting this past week, which helps. He lives with his parents. He reports he has been doing well using his OmniPod insulin pump which he started in February. He denies any recent rashes or tick bites on his body. He denies smoking, tobacco use, recent alcohol use. Patient is hypertensive at 223/99 at time of admission; vitals otherwise stable. Medications given at dialysis: Zofran 4 mg IV Droperidol 1.25 mg IM ED course: Zofran 4 mg IV Labetalol 10 mg IV ROS: Patient endorses acute onset of nausea and vomiting, fatigue, and feeling hot/feverish in the ED. Patient denies fever last night, night-sweats, chills, CHANEL, dizziness, lightheadedness, chest pain, chest palpitations, pleuritic CP, cough, SOB, abdominal pain, abdominal cramping, diarrhea, or changes in bowel habits. Discharge Exam gen - lying flat in bed, c/o nausea; had emesis x 1 mouth - MM dry neck - no JVD heart - RRR, s1 s2, 2/6 systolic murmur LUSB lungs - CTA b/l abd - soft NT ND BS+ ext - no edema, pulses 2+ b/l musculo - mild swelling about the left knee, mildly tender tibial plateau region Discharge Plan Discharge Items Patient Disposition: Home - Self-Care Reason For Visit: Nausea/vomiting Discharge Diagnosis: 1. nausea/vomiting - resolved 2. gastroparesis 3. recent left tibial fracture 4. end-stage renal disease on dialysis 5. diabetes on insulin pump 6. prior history of blood clots - on coumadin; discharge INR 3.3 7. high blood pressure Activity: As commented below Activity Comment: non-weightbearing - left leg; use brace on left knee Weightbearing: Left non-weightbearing Non-emergency contact: Primary Care Provider and Supervisor [place] Call non-emergency contact if: you have any medication questions, your symptoms worsen, your pain is not controlled and your pain is worsening Follow-up/Referrals: Genet Cool MD [Primary Care Provider] - Diet: Carb Count or DM1 and Dialysis Renal Fluids: 1500ml (6 cups) Addtl Attending Provider Instructions: Mr De Los Santos, You were hospitalized due to nausea and vomiting. This may have been due to your gastroparesis. Alternatively perhaps the severe pain in your left knee was causing the nausea & vomiting. Either way the nausea/vomiting have resolved and you are tolerating a diet again. Your left knee pain from the fractured tibia responded nicely to hydrocodone and ice. Recommendations - 1. for left knee pain - * hydrocodone-acetaminophen - 1 tablet every 6 hours as needed * do not drive if you are taking this medicine * do not drink alcohol if you are taking this medicine * do not take extra [id number]-fjf-jagsxjz tylenol as this narcotic pain killer has tylenol in it * hydrocodone tends to cause constipation; thus, if you have to take this regularly, be sure to take something for your bowels as well 2. continue to ice the left knee as needed/as desired 3. continue NON-WEIGHTBEARING status to the left leg unless otherwise directed by [facility] Orthopedics 4. continue to use your brace on the left knee as previous 5. please check your blood pressure a couple of times each day. If the systolic blood pressure (top number) stays consistently greater than 130-140 please resume taking hydralazine. Your pharmacy records show that you received a prescription for 50mg tablets of hydralazine a few months ago. Simply break the hydralazine in half and take 25mg (1/2 tablet) twice daily. 6. your INR today was 3.3. Your coumadin levels jorge likely because of inability to eat/drink normally over the last few days. I only gave you 2.5mg of coumadin today, 04/29/24. I would resume your usual coumadin dose of 5mg daily starting tomorrow, 04/30/24. Plan to have your INR checked THIS THURSDAY to ensure it is in range (2 to 3). Follow-up - resume your usual dialysis schedule as previous Return to [facility] if - * you have fever over 100 degrees * you have severe abdominal pain * you have recurrent nausea/vomiting * you have uncontrolled pain in your left knee * you have shortness of breath or chest pains * any other concerns It was our pleasure to care for you! Happy Thanksgizelalem, Guevara Townsend Pending Studies at Discharge: No Stand-Alone Forms: My [facility], Smoking Cessation Medications and DC Order Prescriptions: New hydrocodone-acetaminophen 5-325 mg Tablet 1 tab PO Q6H PRN (Reason: pain) Qty: 20 0RF calcium acetate 667 mg tablet 1,334 mg PO TID Qty: 180 0RF Rx Instructions: 2 tabs with meals, 1 tab with snacks. hydralazine 25 mg tablet 25 mg PO BID Qty: 60 0RF Continued acetaminophen 325 mg capsule 650 mg PO Q4H PRN (Reason: Pain (Scale Score 1-3)) pantoprazole [Protonix] 40 mg tablet,delayed release (DR/EC) 40 mg PO QAM Qty: 90 1RF (DME) pen needle, diabetic [Droplet Pen Needle] 31 gauge x 1/4" needle See Rx Instructions .Route Qty: 100 11RF Rx Instructions: use 3 per day lorazepam 0.5 mg tablet 0.5 mg PO Q8H PRN (Reason: severe nausea) Qty: 30 0RF carvedilol 12.5 mg tablet 12.5 mg PO BID Qty: 180 3RF Rx Instructions: must administer with a meal/food insulin lispro [Admelog U-100 Insulin lispro] 100 unit/mL solution 60 unit subcut DAILY Rx Instructions: uses thru omnipod mirtazapine 7.5 mg tablet 7.5 mg PO HS midodrine 5 mg tablet 5 mg PO .COMPLEX Rx Instructions: 5 mg orally as needed at dialysis; melatonin 1 mg tablet 4 mg PO HS PRN (Reason: Sleep) (DME) Omnipod 5 G6 Intro Kit (Gen 5) Cartridge See Rx Instructions .Route Qty: 1 0RF Rx Instructions: change pods every 3 days (DME) Omnipod 5 G6 Pods (Gen 5) Cartridge See Rx Instructions .Route Qty: 10 11RF Rx Instructions: change pod every 3 days warfarin 5 mg tablet 5 mg PO DAILY ascorbic acid (vitamin C) [Vitamin C] 500 mg Tablet Extended Release 500 mg PO QAM aprepitant 80 mg capsule 80 mg PO DAILY PRN (Reason: NAUSEA/VOMITING) cholecalciferol (vitamin D3) [Vitamin D3] 50 mcg (2,000 unit) Capsule 50 mcg PO QPM Xphozah 30 mg tablet 30 mg PO BID ondansetron 4 mg tablet,disintegrating 4 mg PO Q12H PRN (Reason: nausea and vomiting) 3 Days Qty: 9 0RF atorvastatin 20 mg tablet 20 mg PO QPM Discharge Orders: Discharge Order (Routine); Ordered 04/29/24 Ordered By: Guevara Townsend Admission Data Admit Date/Time: 04/27/24 13:43 Attending Provider: Guevara Townsend Admit Provider: Jose Martin Primary Care Provider: Genet Cool Other Providers: Jose Martin; Lor Guadalupe Hospital Stay Data Consultations 04/27/24 13:07 ED Decision to Admit Stat 04/27/24 19:12 Consult Nephrology Routine Pending Results Patient Have Any Pending Studies at Discharge: No Discharge Instructions Given to Patient (Per Discharging Provider) Mr De Los Santos, Kun were hospitalized due to nausea and vomiting. This may have been due to your gastroparesis. Alternatively perhaps the severe pain in your left knee was causing the nausea & vomiting. Either way the nausea/vomiting have resolved and you are tolerating a diet again. Your left knee pain from the fractured tibia responded nicely to hydrocodone and ice. Recommendations - 1. for left knee pain - * hydrocodone-acetaminophen - 1 tablet every 6 hours as needed * do not drive if you are taking this medicine * do not drink alcohol if you are taking this medicine * do not take extra [id number] tylenol as this narcotic pain killer has tylenol in it * hydrocodone tends to cause constipation; thus, if you have to take this regul melvin, be sure to take something for your bowels as well 2. continue to ice the left knee as needed/as desired 3. continue NON-WEIGHTBEARING status to the left leg unless otherwise directed by [facility] Orthopedics 4. continue to use your brace on the left knee as previous 5. please check your blood pressure a couple of times each day. If the systolic blood pressure (top number) stays consistently greater than 130-140 please resume taking hydralazine. Your pharmacy records show that you received a prescription for 50mg tablets of hydralazine a few months ago. Simply break the hydralazine in half and take 25mg (1/2 tablet) twice daily. 6. your INR today was 3.3. Your coumadin levels jorge likely because of inability to eat/drink normally over the last few days. I only gave you 2.5mg of coumadin today, 04/29/24. I would resume your usual coumadin dose of 5mg daily starting tomorrow, 04/30/24. Plan to have your INR checked THIS THURSDAY to ensure it is in range (2 to 3). Follow-up - resume your usual dialysis schedule as previous Return to [facility] if - * you have fever over 100 degrees * you have severe abdominal pain * you have recurrent nausea/vomiting * you have uncontrolled pain in your left knee * you have shortness of breath or chest pains * any other concerns It was our pleasure to care for you! 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
== END 2024-04-29 19:04 | disposition home or self-care (01) | DRG 73 ==
LOC: ED 10:32 → SUATTDRO 13:43 → EDINP 13:43 → 2N 16:36

== ENCOUNTER 2024-06-18 20:47 | Observation (INO) ==
[2024-06-18] MEDS: ONDANSETRON 4 MG OD TAB PO STA (21:18)
[2024-06-18 21:51] LABS: Albumin Globulin Ratio 1.5 (0.9-2); Albumin Level 4.8 gm/dl (3.4-5.0); BUN Creatinine Ratio 3.2 (10-20); Bilirubin,Total 0.8 mg/dl (0.2-1.0); Calcium 9.7 mg/dl (8.6-10.3); Globulin 3.2 gm/dl (2.5-4.0); Potassium 3.4 mmol/L (3.5-5.1)
[2024-06-18 21:54] LABS: Basophils # (auto) 0.06 K/uL (0.00-0.20); Basophils % (auto) 0.8 %; Eosinophils # (auto) 0.16 K/uL (0.00-0.50); Eosinophils % (auto) 2.1 %; Hematocrit (blood only) 34.9 % (42.0-52.0); Hemoglobin 11.4 g/dl (14.0-18.0); Immature Granulocytes # (auto) 0.02 K/uL (0.01-0.20); Immature Granulocytes % (auto) 0.3 %; Lymphocytes # (auto) 1.37 K/uL (1.20-3.40); Lymphocytes % (auto) 17.6 %; Mean Corpuscular Hemoglobin 32.1 pg (25.0-34.0); Mean Corpuscular Hgb Conc 32.7 g/dL (32.0-36.0); Mean Corpuscular Volume 98.3 fL (80.0-100.0); Mean Platelet Volume 10.1 fL (9.4-12.4); Monocytes # (auto) 0.84 K/uL (0.11-0.59); Monocytes % (auto) 10.8 %; Neutrophils # (auto) 5.32 K/uL (1.40-6.50); Neutrophils % (auto) 68.4 %; Platelet Count 346 K/uL (130-400); RDW Coefficient of Variation 13.6 % (11.5-14.5); RDW Standard Deviation 48.9 fL (36.4-46.3); Red Blood Count 3.55 M/uL (4.70-6.10); White Blood Count 7.77 K/ul (4.8-10.8)
--- NOTE | 2024-06-18 22:10 | Emergency Department Note ---
Impression & Plan Nausea & vomiting, Diabetic gastroparesis, ESRD (end stage renal disease), Hypertension ED Provider Note CHIEF COMPLAINT: nausea, dry heaves x3 days HISTORY OF PRESENT ILLNESS: This 53 year old male patient presents to the emergency department via private vehicle for evaluation of nausea and dry heaves. Pt. states symptoms started at dialysis 3 days ago. He does have a history of ESRD on dialysis and diabetes which has been well-managed. Pt. states there has been no vomiting. He has had some cough and congestion. No fever. Pt. denies vomiting blood. No diarrhea. States he does not make urine. Pt. states there is no abdominal pain and no history of SBO. Pt. denies constipation. He has been taking Ativan and aprepitant for his symptoms, last dose was at about 2pm. Pt. has not taken anything since then to help. Pt. was able to tolerate pudding at lunch time and has been keeping down some PO clear fluids. Pt. denies shortness of breath or chest pain. Of note, patient has not been taking BP medication for at least 24 hours. History provided by: patient REVIEW OF SYSTEMS: A 10 system review of systems was performed with positives and pertinent negatives listed in the history of present illness. All other systems were reviewed and are negative. ALLERGIES: shellfish, codeine, promethazine PHYSICAL EXAM: VITALS: Vitals are noted on the nurse's note and reviewed by myself. GENERAL: This is a 53 year old male, in no acute distress, nondiaphoretic, well- developed well-nourished. SKIN: The skin was without rashes, erythema, edema, or bruising. There is no tenting of the skin. Capillary refill less than 2 seconds. HEAD: Normocephalic atraumatic. EYES: Conjunctivae without injection, sclerae without icterus. NOSE: Patent, turbinates without inflammation or discharge. No sinus tenderness. MOUTH: Mucous membranes dry. Tonsils are not enlarged. Pharynx without erythema or exudate. Uvula midline. Airway patent. Tongue does not deviate. NECK: Supple without nuchal rigidity. No lymphadenopathy. Cervical spine is nontender. No JVD. HEART: Regular rate and rhythm without murmurs gallops or rubs. LUNGS: Clear to auscultation bilaterally without wheezes, rales or rhonchi. No retractions or accessory muscle use. ABDOMEN: Positive bowel sounds x 4. Soft, nontender, without masses or organomegaly. No guarding or rebound tenderness. MUSCULOSKELETAL: No muscle atrophy, erythema, or edema noted. Full range of motion without joint tenderness in all extremities. No tenderness to palpation. Normal gait. Strength 5/5 throughout. NEURO: Patient was alert and oriented to person place and time. No focal neurological deficits. An order was placed for continuous monitoring specialist. The monitor showed a normal sinus rhythm at a ventricular rate of 72 bpm, per my interpretation. Imaging as interpreted by myself and the radiologist revealed no acute findings, with radiologist interpretation as above. I agree with the radiologist's findings as based upon my independent interpretation. EMERGENCY DEPARTMENT COURSE: The patient was evaluated as above. Pt. presents for intractable nausea and dry heaves. Pt. ESRD with history gastroparesis on dialysis. He was found to be hypertensive throughout his stay. Of note, patient has not been taking anti-hypertensives for >24 hours due to his nausea. IV access obtained, labs drawn. Initial orders placed by nursing staff. Pt. medicated with IV Zofran. Pt. noted to be hypoxic with O2 saturation in the 70's on room air. Previous medical records reviewed. It does appear the patient normally receives IV Ativan, Benadryl, and Compazine for his intractable nausea when he presents to the ED. Unfortunately, given the hypoxia, hesitant to administer Benzo's at this time. Pt. was medicated with small doses of IV Benadryl and Compazine. Pt. was placed on 2L O2. Labs reviewed. Per my interpretation, no leukocytosis. Mild anemia with Hgb 11.4. No thrombocytopenia. Hepatic function and electrolytes without significant abnormality. Creatinine 5.3, consistent with patient's baseline - he is on dialysis. Lipase 10. Respiratory biofire testing completed and negative. Pt's BP did not seem to improve. He was medicated with IV labetalol. No change. He was provided his home medications of Carvedilol and hydralazine. He was given additional IV Labetalol. No significant change. On re-evaluation, patient reports no significant change in his symptoms. Given patient's persistent HTN, intractable nausea, and hypoxia, did recommend inpatient care. Discussed case with Dr. Cervantes, [place] Hospitalist physician. She did agree to evaluate the patient for admission. Please see her dictation regarding ongoing management of this patient. Case was discussed with the attending physician. This visit is during a period of high volume and high acuity in the emergency department. I attest that I have personally reviewed the patient medication list. I attest that I have reviewed the patient's blood pressure and it was found to be elevated. Further management by hospitalist. GCS: 15 In the evaluation and treatment of this patient the following differential diagnoses were entertained: Gastroenteritis, food borne illness, infections, appendicitis, diverticulitis, inflammatory bowel disease, obstruction, GI bleed, biliary pathology, volvulus, as well as other pathologies. The chart was completed utilizing [employer] Speech voice recognition software. Grammatical errors, random word insertions, pronoun errors, and incomplete sentences are an occasional consequence of this system due to software limitations, ambient noise, and hardware issues. Any formal questions or concerns about the content, text, or information contained within the body of this dictation should be directly addressed to the provider for clarification. Past Med/Surg History Problem List (Updated 06/19/24 @ 03:26 by Ana Hartley PA-C) Tibial plateau fracture, left Hypertension (Acute) Gastroparesis (Acute) Nausea & vomiting (Acute) Closed fracture of left tibial plateau (Acute) Controlled diabetes mellitus with kidney complication, with long-term current use of insulin GERD (gastroesophageal reflux disease) (Chronic) AV fistula (Chronic) left upper arm Diabetic peripheral neuropathy associated with type 1 diabetes mellitus (Chronic) Cardiomyopathy (Chronic) ESRD (end stage renal disease) (Chronic) hemodialysis M,W,F (Follows with Dr. Lor Guadalupe; [facility]) Diabetic gastroparesis (Chronic) Hypertension (Chronic) Renal osteodystrophy (Chronic) First degree atrioventricular block by electrocardiogram (Chronic) Anxiety (Chronic) 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, with long-term current use of insulin (Chronic) 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, with long-term current use of insulin (Chronic) Diabetic retinopathy (Chronic) Chronic pleural effusion (Chronic) PleurX catheter placed 01/24/21--removed 07/2021 CAD (coronary artery disease) (Chronic) mild, non-obstructive CAD per 10/2018 cardiac cath> [facility] Lumbar radiculopathy (Chronic) Medical History History of pulmonary embolism 11/2020; unk etiology; was on warfarin (taken off 05/2021) Dialysis patient Deep vein thrombosis (DVT) of right lower extremity History of nephrolithiasis Metatarsal fracture Urolithiasis Surgical History History of colonoscopy S/P arteriovenous (AV) fistula creation left arm History of cataract surgery History of esophagogastroduodenoscopy (EGD) (~03/08/20) History of open reduction and internal fixation (ORIF) procedure right hip Nausea and vomiting after administration of anesthetic agent History of lithotripsy History of cardiac cath x2---07/28/23 @ [facility], no stents--per pt done for transplant list and 10/2018 @ [facility] (no stents) History of hip surgery left HIP ARTHROSCOPY H/O shoulder surgery RIGHT History of appendectomy Family History Grandfather Myocardial infarction Grandfather (Maternal) Family history of diabetes mellitus Uncle Myocardial infarction Father Hypertension Mother Kidney stone Other No family history of adverse response to anesthesia Denies family history of Colon cancer Ovarian cancer Prostate cancer Breast cancer Social History Smoking Status: Never smoker Tobacco Type: Smokeless Tobacco (Dip or Chew) Second Hand Exposure: No; Do You Dip or Chew Tobacco: No; Hx Alcohol Use: No Hx Substance Use: No Preferred Language: Russian Communication Ability: Effective Visual Impairment: No Limitations Hearing Ability: Normal Blood Bank Laboratory Technician Required: No Beliefs That Will Affect Care: None marital status: Current Living Situation: Family Current Living Situation Comment: Lives with parents current occupational status: disabled How many Children do You have: 2 Feels Safe at Home: Yes Childhood Exposure to Second-Hand Smoke: Yes Diet: regular caffeine: Yes Dental Care, Regularly: No Physical Activity Frequency: 1-2 Times per Week Seatbelt Use: always Sunscreen Use: Yes Gender Identity: Male Assistive Devices: Glasses and Walker Allergies Allergies Allergy/AdvReac Type Severity Reaction Status Date / Time shellfish derived Allergy Severe anaphylaxis Verified 05/17/24 14:01 codeine Allergy Intermediate Hives Verified 05/17/24 14:01 promethazine Allergy Intermediate itchy/hives Verified 05/17/24 14:01 Home Meds Home Medications Medication Instructions Recorded Confirmed acetaminophen 325 mg capsule 650 mg PO Q4H PRN Pain (Scale 09/28/20 06/18/24 Score 1-3) melatonin 1 mg tablet 4 mg PO HS PRN Sleep 09/18/22 06/18/24 midodrine 5 mg tablet 5 mg PO .COMPLEX 02/19/23 06/18/24 mirtazapine 7.5 mg tablet 7.5 mg PO HS 02/19/23 06/18/24 aprepitant 80 mg capsule 80 mg PO DAILY PRN NAUSEA/VOMITING 12/06/23 06/18/24 ascorbic acid (vitamin C) 500 mg 500 mg PO QAM 12/06/23 06/18/24 tablet,extended release (Vitamin C ER) cholecalciferol (vitamin D3) 50 50 mcg PO QPM 12/06/23 06/18/24 mcg (2,000 unit) capsule (Vitamin D3) warfarin 5 mg tablet 2.5 - 5 mg PO DAILY 12/06/23 06/18/24 tenapanor 30 mg tablet (Xphozah) 30 mg PO BID 12/08/23 06/18/24 insulin lispro 100 unit/mL 70 unit subcut DAILY 04/19/24 06/18/24 subcutaneous solution (Admelog U-) atorvastatin 20 mg tablet 20 mg PO QPM 04/27/24 06/18/24 lorazepam 0.5 mg tablet 0.5 mg PO UD 06/18/24 06/18/24 pantoprazole 40 mg tablet,delayed 40 mg PO DAILYBB 06/18/24 06/18/24 release (Protonix) Previous Rx's Medication Instructions Recorded insulin pump cart,automated,BT #10 ea 12/29/23 (Omnipod 5 G6 Pods (Gen 5) subcutaneous cartridge) insulin pump cartridge,automated #1 ea 12/29/23 dose,BT with controller subcutaneous (Omnipod 5 G6 Intro Kit (Gen 5) subcutaneous cartridge with controller) pen needle, diabetic 31 gauge x #100 ea 01/01/24 1/4" (Droplet Pen Needle) carvedilol 12.5 mg tablet 12.5 mg PO BID #180 tabs 02/11/24 calcium acetate 667 mg tablet 1,334 mg (2 x 667 mg) PO TID #180 04/29/24 tabs hydrocodone 5 mg-acetaminophen 325 1 tab PO Q6H PRN pain #20 tabs 04/29/24 mg tablet hydralazine 25 mg tablet 25 mg PO TID #270 tabs 05/17/24 Results & Data (ED) Vital Signs Vital Signs - 24 hr 06/18/24 20:49 06/18/24 21:57 06/18/24 22:00 Temperature 36.9 C Temperature Source Temporal Artery Scan Pulse Rate 73 Pulse Rate [Apical] 71 72 Pulse Rhythm Regular Pulse Strength Normal Respiratory Rate 20 12 0 L Respiratory Effort / Characteristics Non-Labored Spontaneous Non-Labored Respiratory Depth Normal Normal Respiratory Pattern Regular Apnea Blood Pressure 229/84 H Blood Pressure [Right Arm] 227/88 H Blood Pressure Mean 132 Blood Pressure Mean [Right Arm] 134 Blood Pressure Position Sitting Pulse Oximetry 99 99 78 L Oxygen Delivery Method Room Air Room Air Room Air Oxygen Flow Rate Sepsis Recent Fever Within 48 Hours No Sepsis New/Unexplained Change in Mental Status N/A Sepsis Action Taken by Nursing No Action Required 06/18/24 23:04 06/18/24 23:53 06/19/24 00:12 Temperature Temperature Source Pulse Rate 72 Pulse Rate [Apical] 73 76 Pulse Rhythm Pulse Strength Respiratory Rate 18 18 Respiratory Effort / Characteristics Respiratory Depth Respiratory Pattern Blood Pressure Blood Pressure [Right Arm] 214/84 H 222/84 H Blood Pressure Mean Blood Pressure Mean [Right Arm] 127 130 Blood Pressure Position Pulse Oximetry 99 99 Oxygen Delivery Method Nasal Cannula Nasal Cannula Oxygen Flow Rate 2 2 Sepsis Recent Fever Within 48 Hours Sepsis New/Unexplained Change in Mental Status Sepsis Action Taken by Nursing 06/19/24 00:13 06/19/24 00:28 06/19/24 01:00 Temperature Temperature Source Pulse Rate 75 69 73 Pulse Rate [Apical] Pulse Rhythm Pulse Strength Respiratory Rate Respiratory Effort / Characteristics Respiratory Depth Respiratory Pattern Blood Pressure 222/84 H 239/89 H 226/86 H Blood Pressure [Right Arm] Blood Pressure Mean Blood Pressure Mean [Right Arm] Blood Pressure Position Pulse Oximetry Oxygen Delivery Method Oxygen Flow Rate Sepsis Recent Fever Within 48 Hours Sepsis New/Unexplained Change in Mental Status Sepsis Action Taken by Nursing 06/19/24 01:15 06/19/24 01:30 06/19/24 02:00 Temperature Temperature Source Pulse Rate 71 73 73 Pulse Rate [Apical] Pulse Rhythm Pulse Strength Respiratory Rate 16 18 Respiratory Effort / Characteristics Respiratory Depth Respiratory Pattern Blood Pressure 223/89 H 211/85 H 225/87 H Blood Pressure [Right Arm] Blood Pressure Mean 169 172 Blood Pressure Mean [Right Arm] Blood Pressure Position Pulse Oximetry 99 99 Oxygen Delivery Method Room Air Room Air Oxygen Flow Rate Sepsis Recent Fever Within 48 Hours Sepsis New/Unexplained Change in Mental Status Sepsis Action Taken by Nursing 06/19/24 02:06 06/19/24 02:15 06/19/24 02:20 Temperature Temperature Source Pulse Rate 75 74 Pulse Rate [Apical] 73 Pulse Rhythm Pulse Strength Respiratory Rate 18 18 16 Respiratory Effort / Characteristics Respiratory Depth Respiratory Pattern Blood Pressure 219/83 H 214/83 H Blood Pressure [Right Arm] 227/87 H Blood Pressure Mean 153 151 Blood Pressure Mean [Right Arm] 133 Blood Pressure Position Pulse Oximetry 99 100 100 Oxygen Delivery Method Room Air Room Air Room Air Oxygen Flow Rate Sepsis Recent Fever Within 48 Hours Sepsis New/Unexplained Change in Mental Status Sepsis Action Taken by Nursing 06/19/24 02:25 06/19/24 02:30 06/19/24 02:35 Temperature Temperature Source Pulse Rate 73 73 74 Pulse Rate [Apical] Pulse Rhythm Pulse Strength Respiratory Rate 18 16 16 Respiratory Effort / Characteristics Respiratory Depth Respiratory Pattern Blood Pressure 213/85 H 205/81 H 199/80 H Blood Pressure [Right Arm] Blood Pressure Mean 131 131 131 Blood Pressure Mean [Right Arm] Blood Pressure Position Pulse Oximetry 99 99 99 Oxygen Delivery Method Room Air Room Air Room Air Oxygen Flow Rate Sepsis Recent Fever Within 48 Hours Sepsis New/Unexplained Change in Mental Status Sepsis Action Taken by Nursing 06/19/24 02:40 Temperature Temperature Source Pulse Rate 74 Pulse Rate [Apical] Pulse Rhythm Pulse Strength Respiratory Rate 16 Respiratory Effort / Characteristics Respiratory Depth Respiratory Pattern Blood Pressure 201/80 H Blood Pressure [Right Arm] Blood Pressure Mean 143 Blood Pressure Mean [Right Arm] Blood Pressure Position Pulse Oximetry 99 Oxygen Delivery Method Room Air Oxygen Flow Rate Sepsis Recent Fever Within 48 Hours Sepsis New/Unexplained Change in Mental Status Sepsis Action Taken by Nursing Laboratory Data 06/18/24 21:11 06/18/24 21:11 Lab Results 06/18/24 06/18/24 06/18/24 Range/Units 21:11 21:20 22:08 WBC 7.77 (4.8-10.8) K/ul RBC 3.55 L (4.70-6.10) M/uL Hgb 11.4 L (14.0-18.0) g/dl Hct 34.9 L (42.0-52.0) % MCV 98.3 (80.0-100.0) fL MCH 32.1 (25.0-34.0) pg MCHC 32.7 (32.0-36.0) g/dL RDW Std Deviation 48.9 H (36.4-46.3) fL RDW Coeff of Kami 13.6 (11.5-14.5) % Plt Count 346 (130-400) K/uL MPV 10.1 (9.4-12.4) fL Immature Gran % (Auto) 0.3 % Neut % (Auto) 68.4 % Lymph % (Auto) 17.6 % Stafford % (Auto) 10.8 % Eos % (Auto) 2.1 % Baso % (Auto) 0.8 % Neut # (Auto) 5.32 (1.40-6.50) K/uL Lymph # (Auto) 1.37 (1.20-3.40) K/uL Stafford # (Auto) 0.84 H (0.11-0.59) K/uL Eos # (Auto) 0.16 (0.00-0.50) K/uL Baso # (Auto) 0.06 (0.00-0.20) K/uL Immature Gran # (Auto) 0.02 (0.01-0.20) K/uL Sodium 141 (136-145) mmol/L Potassium 3.4 L (3.5-5.1) mmol/L Chloride 91 L (98-107) mmol/L Carbon Dioxide 37 H (21-32) mmol/L Anion Gap 13 H (3-11) BUN 17 (6-23) mg/dl Creatinine 5.33 H* (0.6-1.4) mg/dl Est Cr Clr Drug Dosing 14.0 ml/min eGFR 12.08 BUN/Creatinine Ratio 3.2 L (10-20) Glucose 95 (70-99(Fasting)) mg/dl POC Glucose 102 H (70-99) mg/dl Calcium 9.7 (8.6-10.3) mg/dl Total Bilirubin 0.8 (0.2-1.0) mg/dl AST 11 L (13-39) U/L ALT 10 (7-52) U/L Alkaline Phosphatase 115 H (34-104) U/L Total Protein 8.0 (6.0-8.3) gm/dl Albumin 4.8 (3.4-5.0) gm/dl Globulin 3.2 (2.5-4.0) gm/dl Albumin/Globulin Ratio 1.5 (0.9-2) Lipase 10 L (11-82) U/L Adenovirus (PCR) Not Detected (NotDetected) B. pertussis DNA (PCR) Not Detected (NotDetected) B.parapertussis DNA PCR Not Detected (NotDetected) C. pneumoniae DNA (PCR) Not Detected (NotDetected) Coronavirus OC43 (PCR) Not Detected (NotDetected) Coronavirus HKU1 (PCR) Not Detected (NotDetected) Coronavirus 229E (PCR) Not Detected (NotDetected) SARS-CoV-2 (PCR) Not Detected (NotDetected) Coronavirus NL63 (PCR) Not Detected (NotDetected) Human Metapneumovir PCR Not Detected (NotDetected) Influenza Type A (PCR) Not Detected (NotDetected) Influenza Type B (PCR) Not Detected (NotDetected) M. pneumoniae (PCR) Not Detected (NotDetected) Parainfluenza 1 (PCR) Not Detected (NotDetected) Parainfluenza 2 (PCR) Not Detected (NotDetected) Parainfluenza 3 (PCR) Not Detected (NotDetected) Parainfluenza 4 (PCR) Not Detected (NotDetected) RSV (PCR) Not Detected (NotDetected) Entero/Rhino (PCR) Not Detected (NotDetected) Administered Medications Discontinued Medications Carvedilol (Carvedilol 12.5 Mg Tab) 12.5 mg PO NOW ONE Stop: 06/19/24 00:44 Last Admin: 06/19/24 01:00 Dose: 12.5 mg Documented By: MARIEL Diphenhydramine HCl (Diphenhydramine 50 Mg/Ml Vial) 12.5 mg IV NOW STA Stop: 06/18/24 22:02 Last Admin: 06/18/24 22:13 Dose: 12.5 mg Documented By: ROBEL Hydralazine HCl (Hydralazine Hcl 25 Mg Tab) 25 mg PO NOW STA Stop: 06/19/24 00:44 Last Admin: 06/19/24 01:01 Dose: 25 mg Documented By: MARIEL Hydralazine HCl (Hydralazine Hcl 20 Mg/Ml Vial) 5 mg IV NOW STA Stop: 06/19/24 01:44 Last Admin: 06/19/24 02:07 Dose: 5 mg Documented By: MARIEL Prochlorperazine (Compazine) 1 mls @ 1 mls/min IV ONE ONE Stop: 06/18/24 22:02 Last Admin: 06/18/24 22:13 Dose: 1 mls/min Documented By: ROBEL Labetalol HCl (Labetalol Hcl Iv 5 Mg/Ml 20ml) 10 mg IV NOW STA Stop: 06/19/24 00:08 Last Admin: 06/19/24 00:13 Dose: 10 mg Documented By: MARIEL Labetalol HCl (Labetalol Hcl Iv 5 Mg/Ml 20ml) 5 mg IV NOW STA Stop: 06/19/24 00:44 Last Admin: 06/19/24 01:00 Dose: 5 mg Documented By: MARIEL Lorazepam (Lorazepam 2 Mg/1 Ml Vial) 1 mg IV NOW STA Stop: 06/18/24 21:59 Last Admin: 06/18/24 22:11 Dose: Not Given Documented By: ROBEL Ondansetron HCl (Ondansetron 4 Mg Od Tab) 4 mg PO NOW STA Stop: 06/18/24 21:16 Last Admin: 06/18/24 21:18 Dose: 4 mg Documented By: ROBEL Imaging Data Radiologist's Impression: Chest X-Ray 06/18/24 20:53 Exam(s): XR CXR 1 VIEW EXAM: XR Chest, 1 View CLINICAL HISTORY: Reason for exam: Abdominal Pain. TECHNIQUE: Frontal view of the chest. COMPARISON: 04/20/2024 FINDINGS: Lungs: No consolidation. No overt edema. Pleural space: No pleural effusion. No pneumothorax. Heart: Unremarkable. No cardiomegaly. IMPRESSION: No acute cardiopulmonary process. Electronically signed by: Kwabena Barraza MD 06/18/24 22:15 PM Discharge Plan Visit Data Chief Complaint: Nausea Stated Complaint: NAUSEA,VOMITING ED Provider: Massimo Nathan ED Midlevel Provider: Ana Hartley Discharge Problem: Nausea & vomiting, Diabetic gastroparesis, ESRD (end stage renal disease), Hypertension Patient Disposition: Admitted As Inpatient Forms Stand Alone Forms: My [facility] Prescriptions Prescriptions: No Action acetaminophen 325 mg capsule 650 mg PO Q4H PRN (Reason: Pain (Scale Score 1-3)) (DME) pen needle, diabetic [Droplet Pen Needle] 31 gauge x 1/4" needle See Rx Instructions .Route Qty: 100 11RF Rx Instructions: use 3 per day carvedilol 12.5 mg tablet 12.5 mg PO BID Qty: 180 3RF Rx Instructions: must administer with a meal/food insulin lispro [Admelog U-100 Insulin lispro] 100 unit/mL solution 70 unit subcut DAILY Rx Instructions: uses thru omnipod mirtazapine 7.5 mg tablet 7.5 mg PO HS midodrine 5 mg tablet 5 mg PO .COMPLEX Rx Instructions: THURSDAY,THURSDAY,THURSDAY BEFORE DIALYSIS melatonin 1 mg tablet 4 mg PO HS PRN (Reason: Sleep) (DME) Omnipod 5 G6 Intro Kit (Gen 5) Cartridge See Rx Instructions .Route Qty: 1 0RF Rx Instructions: change pods every 3 days (DME) Omnipod 5 G6 Pods (Gen 5) Cartridge See Rx Instructions .Route Qty: 10 11RF Rx Instructions: change pod every 3 days hydralazine 25 mg tablet 25 mg PO TID Qty: 270 1RF warfarin 5 mg tablet 2.5 - 5 mg PO DAILY Rx Instructions: DOSE PER COUMADIN CLINIC INSTRUCTION ascorbic acid (vitamin C) [Vitamin C] 500 mg Tablet Extended Release 500 mg PO QAM aprepitant 80 mg capsule 80 mg PO DAILY PRN (Reason: NAUSEA/VOMITING) cholecalciferol (vitamin D3) [Vitamin D3] 50 mcg (2,000 unit) Capsule 50 mcg PO QPM Xphozah 30 mg tablet 30 mg PO BID pantoprazole [Protonix] 40 mg tablet,delayed release (DR/EC) 40 mg PO DAILYBB lorazepam 0.5 mg Tablet 0.5 mg PO UD Rx Instructions: CANNOT VERIFY ON PHARMACY RECORD atorvastatin 20 mg tablet 20 mg PO QPM hydrocodone-acetaminophen 5-325 mg Tablet 1 tab PO Q6H PRN (Reason: pain) Qty: 20 0RF calcium acetate 667 mg tablet 1,334 mg PO TID Qty: 180 0RF Rx Instructions: 2 tabs with meals, 1 tab with snacks. Referrals Referrals: Genet Cool MD [Primary Care Provider] -
[2024-06-18] MEDS: LORazepam 2 MG/1 ML VIAL IV STA (22:11)
[2024-06-18] MEDS: diphenhydrAMINE 50 MG/ML VIAL IV STA (22:13)
[2024-06-18] MEDS: PROCHLORPERAZINE 1 ML IV ONE (22:13)
--- NOTE | 2024-06-18 22:16 | XRay Report ---
Exam(s): XR CXR 1 VIEW EXAM: XR Chest, 1 View CLINICAL HISTORY: Reason for exam: Abdominal Pain. TECHNIQUE: Frontal view of the chest. COMPARISON: 04/20/2024 FINDINGS: Lungs: No consolidation. No overt edema. Pleural space: No pleural effusion. No pneumothorax. Heart: Unremarkable. No cardiomegaly. IMPRESSION: No acute cardiopulmonary process. Electronically signed by: Kwabena Barraza MD 06/18/24 22:15 PM
[2024-06-18 23:07] LABS: Adenovirus PCR Not Detected (NotDetected); Bordetella parapertussis PCR Not Detected (NotDetected); Bordetella pertussis PCR Not Detected (NotDetected); Chlamydia pneumoniae PCR Not Detected (NotDetected); Coronavirus 229E PCR Not Detected (NotDetected); Coronavirus CoV-2 (COVID19)PCR Not Detected (NotDetected); Coronavirus HKU1 PCR Not Detected (NotDetected); Coronavirus NL63 PCR Not Detected (NotDetected); Coronavirus OC43PCR Not Detected (NotDetected); Human Metapneumovirus PCR Not Detected (NotDetected); Influenza A PCR Not Detected (NotDetected); Influenza B PCR Not Detected (NotDetected); Mycoplasma pneumoniae PCR Not Detected (NotDetected); Parainfluenza Virus 1 PCR Not Detected (NotDetected); Parainfluenza Virus 2 PCR Not Detected (NotDetected); Parainfluenza Virus 3 PCR Not Detected (NotDetected); Parainfluenza Virus 4 PCR Not Detected (NotDetected); Respiratory Syncytial VirusPCR Not Detected (NotDetected); Rhinovirus/Enterovirus PCR Not Detected (NotDetected)
[2024-06-19] MEDS: LABETALOL HCL IV 5 MG/ML 20ML IV STA ×2 (00:13→01:00)
[2024-06-19] MEDS: carvediloL 12.5 MG TAB PO ONE (01:00)
[2024-06-19] MEDS: hydrALAZINE HCL 25 MG TAB PO STA (01:01)
--- NOTE | 2024-06-19 01:56 | History & Physical Report ---
Date of Service June 19, 2024 Assessment & Plan (1) Nausea & vomiting: Plan: 53-year-old male with end-stage renal disease on dialysis Thursday/Thursday/Thursday, cyclic vomiting syndrome, gastroparesis presents with 3 days of persistent nausea and vomiting. Patient unable to keep down his medications today. Electrolytes are acceptable. Differential to include flare of cyclic vomiting versus gastroparesis. Doubt gastroenteritis given lack of diarrhea Admit to PCU Zofran 4 mg IV every 6 hours as needed Ativan 0.5 mg IV every 8 hours as needed - Reglan 10 mg IV every 6 hours as needed Continue home Arepitatnt at 80 mg p.o. daily continue Protonix 40 mg p.o. daily Clear liquid diet as tolerated (2) Hypertension: Plan: Patient with markedly elevated blood pressure upon arrival. He was administered labetalol 10 mg IV +5 mg IV as well as p.o. and IV hydralazine with minimal improvement. Blood pressure currently 195/87. Patient is asymptomatic with no evidence of endorgan dysfunction Continue home antihypertensive regimen including carvedilol 12.5 mg p.o. twice daily, hydralazine 25 mg p.o. 3 times daily. Gradual lowering of blood pressure Labetalol 5 mg IV every 6 hours as needed for blood pressure greater than 180/110 Continue to monitor (3) Controlled diabetes mellitus with kidney complication, with long-term current use of insulin: Plan: Patient with insulin pump in place. Blood sugars have been well-controlled. Patient prefers to manage his own insulin pump during this present ho spitalization. As he does not appear to be in DKA or hyperglycemic see no reason why he should not. Order placed for patient to manage his own insulin pump Nursing may access patient's continuous glucose monitor Hypoglycemia agents ordered to be used as needed (4) ESRD (end stage renal disease): Plan: Chronic. Stable. Patient receives dialysis Thursday/Thursday/Thursday and follows with Dr. Higgins. Presently with mild hypokalemia with K = 3.4. Very mild anion gap of 13. Serum bicarbonate is elevated at 37. Blood glucose = 144 -Continue PhosLo - will need nephrology consult if he is here for dialysis on Thursday Repeat chemistry in the morning Renal dosing were needed (5) CAD (coronary artery disease): Plan: Chronic. Stable. Patient denies chest pain Continue atorvastatin 20 mg p.o. every afternoon Continue carvedilol 12.5 mg p.o. twice daily Plan chronic anticoagulationpatient is on warfarin Continue Coumadin at home dose Monitor INR History of Present Illness Chief Complaint: Nausea, vomiting Primary Care Provider: Genet Cool MD Jorge Alberto De Los Santos is a 53yo male with history of DM-I with gastroparesis, Cyclic vomiting, ESRD on HD presenting with intractable nausea and vomiting. Patient developed nausea with vomiting during his dialysis session on Thursday. He denies fever or chills. Denies chest pain, cough, shortness of breath. Denies diarrhea. He reports his blood sugars have been adequate. He was unable to take his medications today due to vomiting therefore his blood pressure is high. No additional complaints at this time In the ER patient is markedly hypertensive at 223/89, mildly hypoxic requiring placement of supplemental oxygen by nasal cannula. Ongoing nausea despite administration of multiple antiemetic agents ER course: Zofran 4 mg IV Phenergan Benadryl 12.5 mg IV Labetalol 10 mg IV Carvedilol 12.5 mg p.o. Labetalol 5 mg IV Hydralazine 25 mg p.o. Hydralazine 5 mg IV Allergies Allergy/AdvReac Type Severity Reaction Status Date / Time shellfish derived Allergy Severe anaphylaxis Verified 05/17/24 14:01 codeine Allergy Intermediate Hives Verified 05/17/24 14:01 promethazine Allergy Intermediate itchy/hives Verified 05/17/24 14:01 Home Medications Medication Instructions Recorded Confirmed Type acetaminophen 325 mg capsule 650 mg PO Q4H PRN Pain (Scale 09/28/20 06/18/24 History Score 1-3) melatonin 1 mg tablet 4 mg PO HS PRN Sleep 09/18/22 06/18/24 History midodrine 5 mg tablet 5 mg PO .COMPLEX 02/19/23 06/18/24 History mirtazapine 7.5 mg tablet 7.5 mg PO HS 02/19/23 06/18/24 History aprepitant 80 mg capsule 80 mg PO DAILY PRN NAUSEA/VOMITING 12/06/23 06/18/24 History ascorbic acid (vitamin C) 500 mg 500 mg PO QAM 12/06/23 06/18/24 History tablet,extended release (Vitamin C ER) cholecalciferol (vitamin D3) 50 50 mcg PO QPM 12/06/23 06/18/24 History mcg (2,000 unit) capsule (Vitamin D3) warfarin 5 mg tablet 2.5 - 5 mg PO DAILY 12/06/23 06/18/24 History tenapanor 30 mg tablet (Xphozah) 30 mg PO BID 12/08/23 06/18/24 History insulin pump cart,automated,BT #10 ea 12/29/23 06/18/24 Rx (Omnipod 5 G6 Pods (Gen 5) subcutaneous cartridge) insulin pump cartridge,automated #1 ea 12/29/23 06/18/24 Rx dose,BT with controller subcutaneous (Omnipod 5 G6 Intro Kit (Gen 5) subcutaneous cartridge with controller) pen needle, diabetic 31 gauge x #100 ea 01/01/24 06/18/24 Rx 1/4" (Droplet Pen Needle) carvedilol 12.5 mg tablet 12.5 mg PO BID #180 tabs 02/11/24 06/18/24 Rx insulin lispro 100 unit/mL 70 unit subcut DAILY 04/19/24 06/18/24 History subcutaneous solution (Admelog U-) atorvastatin 20 mg tablet 20 mg PO QPM 04/27/24 06/18/24 History calcium acetate 667 mg tablet 1,334 mg (2 x 667 mg) PO TID #180 04/29/24 06/18/24 Rx tabs hydrocodone 5 mg-acetaminophen 325 1 tab PO Q6H PRN pain #20 tabs 04/29/24 Rx mg tablet hydralazine 25 mg tablet 25 mg PO TID #270 tabs 05/17/24 06/18/24 Rx lorazepam 0.5 mg tablet 0.5 mg PO UD 06/18/24 06/18/24 History pantoprazole 40 mg tablet,delayed 40 mg PO DAILYBB 06/18/24 06/18/24 History release (Protonix) Past Med/Surg History Problem List Tibial plateau fracture, left Hypertension (Acute) Gastroparesis (Acute) Nausea & vomiting (Acute) Closed fracture of left tibial plateau (Acute) Controlled diabetes mellitus with kidney complication, with long-term current use of insulin GERD (gastroesophageal reflux disease) (Chronic) AV fistula (Chronic) left upper arm Diabetic peripheral neuropathy associated with type 1 diabetes mellitus (Chronic) Cardiomyopathy (Chronic) ESRD (end stage renal disease) (Chronic) hemodialysis M,W,F (Follows with Dr. Lor Guadalupe; [facility]) Diabetic gastroparesis (Chronic) Hypertension (Chronic) Renal osteodystrophy (Chronic) First degree atrioventricular block by electrocardiogram (Chronic) Anxiety (Chronic) 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, with long-term current use of insulin (Chronic) 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, with long-term current use of insulin (Chronic) Diabetic retinopathy (Chronic) Chronic pleural effusion (Chronic) PleurX catheter placed 01/24/21--removed 07/2021 CAD (coronary artery disease) (Chronic) mild, non-obstructive CAD per 10/2018 cardiac cath> [facility] Lumbar radiculopathy (Chronic) Medical History History of pulmonary embolism 11/2020; unk etiology; was on warfarin (taken off 05/2021) Dialysis patient Deep vein thrombosis (DVT) of right lower extremity History of nephrolithiasis Metatarsal fracture Urolithiasis Surgical History History of colonoscopy S/P arteriovenous (AV) fistula creation left arm History of cataract surgery History of esophagogastroduodenoscopy (EGD) (~03/08/20) History of open reduction and internal fixation (ORIF) procedure right hip Nausea and vomiting after administration of anesthetic agent History of lithotripsy History of cardiac cath x2---07/28/23 @ [facility], no stents--per pt done for transplant list and 10/2018 @ [facility] (no stents) History of hip surgery left HIP ARTHROSCOPY H/O shoulder surgery RIGHT History of appendectomy Family History Grandfather Myocardial infarction Grandfather (Maternal) Family history of diabetes mellitus Uncle Myocardial infarction Father Hypertension Mother Kidney stone Other No family history of adverse response to anesthesia Denies family history of Colon cancer Ovarian cancer Prostate cancer Breast cancer Social History Smoking Status: Never smoker Tobacco Type: Smokeless Tobacco (Dip or Chew) Second Hand Exposure: No; Do You Dip or Chew Tobacco: No; Hx Alcohol Use: No Hx Substance Use: No Preferred Language: Swedish Communication Ability: Effective Visual Impairment: No Limitations Hearing Ability: Normal Network Coordinator Required: No Beliefs That Will Affect Care: None marital status: Current Living Situation: Parent Current Living Situation Comment: Lives with parents current occupational status: disabled How many Children do You have: 2 Other Information That Helps Us Care for You: No Feels Safe at Home: Yes Safety Concerns: Feels Safe At This Time Childhood Exposure to Second-Hand Smoke: Yes Diet: regular caffeine: Yes Dental Care, Regularly: No Physical Activity Frequency: 1-2 Times per Week Seatbelt Use: always Sunscreen Use: Yes Gender Identity: Male Assistive Devices: Brace/Splint/Immobilizer Assistive Devices Comment: Left knee brace Review of Systems Review of Systems: All systems reviewed & are unremarkable except as noted in HPI & below Physical Exam Physical Exam: General: Patient in moderate distress with ongoing nausea and vomiting, able to answer questions and follow commands Skin: warm, dry, intact, no rashes or lesions HEENT: NC/AT, PERRL, EOMI, anicteric sclera, conjunctiva without injection, external ear normal to inspection and nontender, nares patent, moist mucus membranes, dentition intact, no oropharyngeal lesions, neck supple, trachea midline, no LAD, no thyromegaly, no JVD Heart: +S1/S2, regular, no m/r/g Lungs: equal air entry bilaterally, no rales/rhonchi/wheezes Abd: +BS, soft, NT/ND, no masses/organomegaly/ascites Ext: warm, 2+ pulses in UE/LE bilaterally, no clubbing/cyanosis or edema, dialysis fistula in left upper extremity with palpable thrill Neuro: nonfocal, patient AA&O x 4, speech intact, no facial droop, moving all extremities on command with equal strength 5/5 Results & Data Results & Data Vital Signs (Past 12 Hours) Vital Signs Temp Pulse Pulse Resp BP BP Pulse Ox 06/19/24 01:15 71 223/89 H 06/19/24 01:00 73 226/86 H 06/19/24 00:28 69 239/89 H 06/19/24 00:13 75 222/84 H 06/19/24 00:12 76 18 222/84 H 99 06/18/24 23:53 73 18 214/84 H 99 06/18/24 23:04 72 06/18/24 22:00 72 0 L 78 L 06/18/24 21:57 71 12 227/88 H 99 06/18/24 20:49 36.9 C 73 20 229/84 H 99 O2 Del Method O2 Flow Rate 06/19/24 01:15 06/19/24 01:00 06/19/24 00:28 06/19/24 00:13 06/19/24 00:12 Nasal Cannula 2 06/18/24 23:53 Nasal Cannula 2 06/18/24 23:04 06/18/24 22:00 Room Air 06/18/24 21:57 Room Air 06/18/24 20:49 Room Air Laboratory Results Laboratory Results WBC 7.77 K/ul (4.8-10.8) 06/18/24 21:11 RBC 3.55 M/uL (4.70-6.10) L 06/18/24 21:11 Hgb 11.4 g/dl (14.0-18.0) L 06/18/24 21:11 Hct 34.9 % (42.0-52.0) L 06/18/24 21:11 MCV 98.3 fL (80.0-100.0) 06/18/24 21:11 MCH 32.1 pg (25.0-34.0) 06/18/24 21:11 MCHC 32.7 g/dL (32.0-36.0) 06/18/24 21:11 RDW Std Deviation 48.9 fL (36.4-46.3) H 06/18/24 21:11 RDW Coeff of Kami 13.6 % (11.5-14.5) 06/18/24 21:11 Plt Count 346 K/uL (130-400) 06/18/24 21:11 MPV 10.1 fL (9.4-12.4) 06/18/24 21:11 Immature Gran % (Auto) 0.3 % 06/18/24 21:11 Neut % (Auto) 68.4 % 06/18/24 21:11 Lymph % (Auto) 17.6 % 06/18/24 21:11 [place] % (Auto) 10.8 % 06/18/24 21:11 Eos % (Auto) 2.1 % 06/18/24 21:11 Baso % (Auto) 0.8 % 06/18/24 21:11 Neut # (Auto) 5.32 K/uL (1.40-6.50) 06/18/24 21:11 Lymph # (Auto) 1.37 K/uL (1.20-3.40) 06/18/24 21:11 [place] # (Auto) 0.84 K/uL (0.11-0.59) H 06/18/24 21:11 Eos # (Auto) 0.16 K/uL (0.00-0.50) 06/18/24 21:11 Baso # (Auto) 0.06 K/uL (0.00-0.20) 06/18/24 21: Immature Gran # (Auto) 0.02 K/uL (0.01-0.20) 06/18/24 21:11 Sodium 141 mmol/L (136-145) 06/18/24 21:11 Potassium 3.4 mmol/L (3.5-5.1) L 06/18/24 21:11 Chloride 91 mmol/L (98-107) L 06/18/24 21:11 Carbon Dioxide 37 mmol/L (21-32) H 06/18/24 21:11 Anion Gap 13 (3-11) H 06/18/24 21:11 BUN 17 mg/dl (6-23) 06/18/24 21: Creatinine 5.33 mg/dl (0.6-1.4) H* 06/18/24 21:11 Est Cr Clr Drug Dosing 14.0 ml/min 06/18/24 21:11 eGFR 12.08 06/18/24 21:11 BUN/Creatinine Ratio 3.2 (10-20) L 06/18/24 21:11 Glucose 95 mg/dl (70-99(Fasting)) 06/18/24 21:11 POC Glucose 144 mg/dl (70-99) H 06/19/24 05:09 Calcium 9.7 mg/dl (8.6-10.3) 06/18/24 21: Magnesium 2.3 mg/dl (1.7-2.4) 06/18/24 21:11 Total Bilirubin 0.8 mg/dl (0.2-1.0) 06/18/24 21:11 AST 11 U/L (13-39) L 06/18/24 21:11 ALT 10 U/L (7-52) 06/18/24 21:11 Alkaline Phosphatase 115 U/L (34-104) H 06/18/24 21:11 Total Protein 8.0 gm/dl (6.0-8.3) 06/18/24 21:11 Albumin 4.8 gm/dl (3.4-5.0) 06/18/24 21:11 Globulin 3.2 gm/dl (2.5-4.0) 06/18/24 21:11 Albumin/Globulin Ratio 1.5 (0.9-2) 06/18/24 21:11 Lipase 10 U/L (11-82) L 06/18/24 21:11 Adenovirus (PCR) Not Detected (NotDetected) 06/18/24 22:08 B. pertussis DNA (PCR) Not Detected (NotDetected) 06/18/24 22:08 B.parapertussis DNA PCR Not Detected (NotDetected) 06/18/24 22:08 C. pneumoniae DNA (PCR) Not Detected (NotDetected) 06/18/24 22:08 Coronavirus OC43 (PCR) Not Detected (NotDetected) 06/18/24 22:08 Coronavirus HKU1 (PCR) Not Detected (NotDetected) 06/18/24 22:08 Coronavirus 229E (PCR) Not Detected (NotDetected) 06/18/24 22:08 SARS-CoV-2 (PCR) Not Detected (NotDetected) 06/18/24 22:08 Coronavirus NL63 (PCR) Not Detected (NotDetected) 06/18/24 22:08 Human Metapneumovir PCR Not Detected (NotDetected) 06/18/24 22:08 Influenza Type A (PCR) Not Detected (NotDetected) 06/18/24 22:08 Influenza Type B (PCR) Not Detected (NotDetected) 06/18/24 22:08 M. pneumoniae (PCR) Not Detected (NotDetected) 06/18/24 22:08 Parainfluenza 1 (PCR) Not Detected (NotDetected) 06/18/24 22:08 Parainfluenza 2 (PCR) Not Detected (NotDetected) 06/18/24 22:08 Parainfluenza 3 (PCR) Not Detected (NotDetected) 06/18/24 22:08 Parainfluenza 4 (PCR) Not Detected (NotDetected) 06/18/24 22:08 RSV (PCR) Not Detected (NotDetected) 06/18/24 22:08 Entero/Rhino (PCR) Not Detected (NotDetected) 06/18/24 22:08 Impressions Chest X-Ray 06/18/24 20:53 Exam(s): XR CXR 1 VIEW EXAM: XR Chest, 1 View CLINICAL HISTORY: Reason for exam: Abdominal Pain. TECHNIQUE: Frontal view of the chest. COMPARISON: 04/20/2024 FINDINGS: Lungs: No consolidation. No overt edema. Pleural space: No pleural effusion. No pneumothorax. Heart: Unremarkable. No cardiomegaly. IMPRESSION: No acute cardiopulmonary process. Electronically signed by: Kwabena Barraza MD 06/18/24 22:15 PM Code Status & VTE Plan VTE Prophylaxis Plan VTE Prophylaxis will be ordered: Yes PG Care Time/CCT Total # of Minutes Spent Total Time Spent with Patient: Total time spent is greater than 50% in coordination of care (as documented) at patient's floor/unit and/or counseling patient: Coding Level of Care Code 92375 INT INP/OBS CARE 3/75MIN Diagnoses Nausea & vomiting R11.2 Hypertension I10 Controlled diabetes mellitus with kidney complication, with long-term current use of insulin E11.21; Z79.4 ESRD (end stage renal disease) N18.6 Coronary artery disease involving [place] coronary artery of [place] heart without angina pectoris I25.10 Coronary Disease-Associated Artery/Lesion type: [place] artery [place] vs. transplanted heart: [place] heart Associated angina: without angina (5) CAD (coronary artery disease) Coronary Disease-Associated Artery/Lesion type: [place] artery [place] vs. transplanted heart: [place] heart Associated angina: without angina Qualified Code(s): I25.10 - Atherosclerotic heart disease of [place] coronary artery without angina pectoris
[2024-06-19] MEDS: hydrALAZINE HCL 20 MG/ML VIAL IV STA (02:07)
--- OUTSIDE RECORDS SUMMARY | 2024-06-19 05:05 | External Medical Summary | Summary of Care ---
Author Name Unknown Organization [facility] Address [address] [place] [address] Phone [phone] Care Team Providers Care Foreign Exchange Clerk Name Role Phone Genet Cool MD Primary Care Provid er Reason for Visit * Reason Onset Date Comments Medication Refill 06/06/2024 Encounter Details Date Type Department Care Team (Late st Contact Info) Description 06/06/2024 Refill Centralized Clinical Pharmacy Services, Bre Pelaez [address] [place] [address] [place] [id number] [facility] [address] [facility] [place] [phone] End stage renal disease on dialysis (HCC); History of DVT in adulthood; Single subsegmental pulmonary embolism without acute cor pulmonale ([facility]); Anticoagulation management encounter Allergies Active Allergy Reactions Criticality Noted Date Comments Codeine Itching 05/24/2019 Promethazine Hcl Hives 10/19/2010 Shellfish-Derived Products Anaphylaxis High 04/26/20 18 documented as of this encounter (statuses as of 06/06/2024) Medications [facility] KETONE CARE STRPIndications :DKA, type 1 (HCC),DM type 1 causing renal disease, not at goal ([facility]) check your urine if you feel your sugar is too high and you feel dried up 10 Strip 0 09/22/19 14 Active ONETOUCH DELICA LANCETS FINE MISCIndications :DKA, type 1 (HCC) use 4 times a day as instructed 100 Units 0 09/22/19 14 Active BANDAR CONTOUR NEXT TEST STRPIndications :Type I (juvenile type) diabetes mellitus without mention [...] in the morning. 12/17/19 19 Active B Fawpsai-B-Mxefv Acid (RENAL VITAMIN) 1 MG Capsule TAKE [...] ATTACHED FOR DETAILED DIRECTIONS 05/14/20 22 Active Trimethobenzami de HCl 300 MG Oral Capsule Take 1 [...] Sliding scale with meals 09/02/19 24 Active HYDROcodone-Jose Alfredo taminophen 5-325 MG Oral Tablet 1 Tablet. 10/02/19 24 Active Pantoprazole Sodium 40 MG Oral Tablet Delayed Release (Protonix) One tablet daily 1/2 hour before breakfast 180 Tablet 3 11/19/19 24 Active Warfarin Sodium 5 MG Oral Tablet (Coumadin)Indic ations:End stage renal disease on dialysis (HCC),History of DVT in adulthood,Singl e subsegmental pulmonary embolism without acute cor pulmonale (HCC),Anticoagu lation management encounter Take 0.5-1 Tablets by mouth every evening. As directed by Anticoagulation clinic 30 Tablet 5 06/06/20 24 Active Warfarin Sodium 5 MG Oral Tablet (Coumadin)Indic ations:End stage renal disease on dialysis (HCC),History of DVT in adulthood,Singl e subsegmental pulmonary embolism without acute cor pulmonale (HCC),Anticoagu lation management encounter Take 1 Tablet by mouth every evening. As directed by Anticoagulation clinic 30 Tablet 5 11/11/19 24 024 Discontin ued(Refil l) Hospital, Clinic, or Other Facility Administered Medication [...] as of this encounter (statuses as of 06/06/2024) Active Problems Problem Noted Date Diagnosed Date [...] fracture 03/15/2016 ETOH abuse 04/05/2012 Overview (04/05/2012): [facility] Admission with DKA March [...] as of this encounter (statuses as of 06/06/2024) Resolved Problems Problem Noted Date Diagnosed Date [...] as of this encounter (statuses as of 06/06/2024) Immunizations Name Administration Dates Next Due COVID-19 mRNA, LNP-s, No Pre serve, 2-Dose Series (Moderna) 08/10/2020,07/17/2020 PPD 06/18/2009,04/03/2008 Pneumococcal Conjugate Vacci ne, 20-valent ([id number]) 10/20/2023(Deferred: Contraindication) Pneumococcal Polysaccharide PPV23 (Pneumovax) 04/05/2012,03/31/2007 [...] encounter Miscellaneous Notes * Telephone Encounter - Quinn Hayden RPh - 06/06/2024 10:39 AM EST Signed Prescriptions: Disp Refills Warfarin Sodium 5 MG Oral Tablet (Coumadin)30 Tab*5 Sig: Take 0.5-1 Tablets by mouth every evening. As directed by Anticoagulation clinic Authorizing Provider: LAISHA HWANG Ordering User: QUINN HAYDEN * Telephone Encounter - Kristy Epperson mechanical insulator - 06/06/2024 10:07 AM EST Did you pend patient's preferred pharmacy and medication before forwarding?yes Pharmacy: [id number] [address] [facility] Pending Prescriptions: Disp Refills Warfarin Sodium 5 MG Oral Tablet (Coumadi*30 Tab*5 Sig: Take 1 Tablet by mouth every evening. As directed by Anticoagulation clinic Last Visit: Visit date not found (in office), Visit date not found (telemedicine) Next Visit: Visit date not found If no future appointments scheduled, and last appointment is greater than a year ago, please schedule patient for a follow-up appointment Last date the medication was ordered: 11/11/23 Is this request for a controlled substance?No Urine Drug Screen:No results found. However, due to the size of the patient record, not all encounters were searched. Please check Results Review for a complete set of results. Patient Phone Numbers Labs: Lab Results Component Value Date/Time CREAT 5.8 (H) 07/14/2023 12:23 PM CREAT 4.2 (H) 06/09/2019 09:21 AM CREAT 0.9 04/26/1996 04:00 PM POTASSIUM 4.9 07/14/2023 12:23 PM POTASSIUM 3.4 (L) 06/09/2019 09:21 AM POTASSIUM 5.0 04/26/1996 04:00 PM TSH 1.74 03/14/2016 08:47 PM LDL 104 07/17/2020 11:42 AM LDL 60 06/09/2019 09:21 AM LDLCHOL 96 08/20/2023 12:21 PM ALT 19 07/14/2023 12:23 PM ALT 16 06/09/2019 09:21 AM HGBA1C 8.3 (H) 11/06/2023 01:34 PM HGBA1C 7.1 (H) 06/09/2019 09:21 AM documented in this encounter Plan of Treatment Upcoming Encounters Date Type Department Care Team (Late st Contact Info) Description 06/21/2024 8:30 AM EST Office Visit Ophthalmology, [address] [place] [address] Dewayne Flores DO [address] [place] [address] 06/28/2024 1:00 PM EST [facility] [phone] [place] [address] 06/28/2024 2:00 PM EST Office Visit Orthopaedics [facility] [address] [place] [place] [address] SharerJudie PAJuan Diego [address] [place] [address] 07/11/2024 9:00 AM EST Office Visit Transplant Clinic, [place] [address] [place] [address] Marium Forbes MD [address] [place] [phone] Cory Razo MD [address] [place] [address] Nurse Victor [facility] [address] [place] [address] Sophie Morillo LSW [address] [place] [address] 07/11/2024 1:00 PM EST Laboratory Outpatient Laboratory, [facility] [address] [place] [address] [facility] [address] [place], [place] [phone] Scheduled Procedures Name Priority Associated Diagnoses Date/Ti me COLONOSCOPY FLEXIBLE PROXIMA L DIAGNOSTIC Recall Screening for colon cancer Health Maintenance Due Date Last Done Comments Depression Screening 1982 DTap/Tdap Vaccines (1 - Tdap) 1989 Hepatitis B Vaccine (1 of 3 - 19+ 3-dose series) 1989 Zoster Vaccines (1 of 2) 1989 Pneumococcal Vaccine: 50+ Years (3 of 3 - PCV) 04/05/2013 04/05/2012, [...] as of this encounter Visit Diagnoses Diagnosis End stage renal disease on dialysis (HCC) End stage renal disease History of DVT in adulthood Single subsegmental pulmonary embolism without acute cor pulmonale (HCC) Anticoagulation management encounter Encounter for therapeutic drug monitoring documented in this encounter Advance Directives Documents on File Type Date Recorded Patient Varnish Maker Expl anation Power of Rail Splitter 01/15/2021 POWER OF A TTORNEY * Full [...] Advance Directives occurred with: Patient Care Teams Foreign Exchange Clerk Relationship Specialty Start Date End Date Genet Cool MD [address] [place] [address] [place] [id number] PCP - General Internal Medicine 01/06/23 documented as of this encounter
--- OUTSIDE RECORDS SUMMARY | 2024-06-19 05:05 | External Medical Summary | Summary of Care ---
Author Name Unknown Organization [facility] Address [address] [place] [address] Phone [phone] Care Team Providers Care Fur Storage Clerk Name Role Phone Genet Cool MD Primary Care Provid er Encounter Details Date Type Department Care Team (Late st Contact Info) Description 05/31/2024 1:30 PM EST Nurse Only Orthopaedics [facility] [address] [facility] [place] [address] [facility], Nurse Ortho [facility] [address] Arrived Allergies Active Allergy Reactions Criticality Noted Date Comments Codeine Itching 05/24/2019 Promethazine Hcl Hives 10/19/2010 Shellfish-Derived Products Anaphylaxis High 04/26/20 18 documented as of this encounter (statuses as of 05/31/2024) Medications [facility] STRPIndications: DKA, type [...] in the morning. 12/17/19 19 Active B Kxuixmd-Y-Uhtnh Acid (RENAL VITAMIN) 1 MG Capsule TAKE [...] as of this encounter (statuses as of 05/31/2024) Active Problems Problem Noted Date Diagnosed Date [...] fracture 03/15/2016 ETOH abuse 04/05/2012 Overview (04/05/2012): [facility] Admission with DKA March 2012 DKA, [...] as of this encounter (statuses as of 05/31/2024) Resolved Problems Problem Noted Date Diagnosed Date Resolved Date Intractable nausea and vomiting 09/14/2022 09/16/2022 Prolonged Q-T interval on ECG 09/14/2022 09/16/2022 Hypertensive urgency 09/14/2022 023 Rigors 10/20/2020 10/25/2020 Severe sepsis with acute organ dysfunction 10/20/2020 10/25/2020 Hypertensive emergency 10/20/202010/25 Nausea and vomiting 11/22/2008 07/01/19 Overview (03/31/2017): ICD-10 update of inactive term Diarrhea 11/22/2008 09/16/2022 ADVANCE DIRECTIVE INFORMATION 10/20/2007 04/11/2024 Overview (06/16/2007): No, Advance Directive brochure offered , patient declined. Dyslipidemia, goal LDL below 160 05/28/2005 05/15/2009 Overview (05/15/2009): Per Lipid Taxonomy. For someone with Diabetes DM type 1, not at goal 12/20/200303/22 Overview (03/22/2009): Modified per Diabetes protocol #14. documented as of this encounter (statuses as of 05/31/2024) Immunizations Name Administration Dates Next Due COVID-19 mRNA, LNP-s, No Pre serve, 2-Dose Series (Moderna) 08/10/2020,07/17/2020 PPD 06/18/2009,04/03/2008 Pneumococcal Conjugate Vacci ne, 20-valent ([id number]) 10/20/2023(Deferred: Contraindication) Pneumococcal Polysaccharide PPV23 (Pneumovax) 04/05/2012,03/31/2007 [...] 06/29/2023 9:31 PM Anabel Tucker, CHING * Are you blind or do you have serious difficulty seeing, even when wearing glasses? Answer Date of Assessment Author No 06/29/2023 9:31 PM Anabel Tucker, RN * Do you have serious difficulty walking or climbing stairs? (5 years old or older) Answer Date of Assessment Author No 06/29/2023 9:31 PM Anabel Tucker, RN * Do you have difficulty dressing [...] Anabel Tucker RN documented in this encounter Nursing Notes * Danial Pabon CMA - 05/31/2024 1:17 PM EST Pt was measured for fitting for knee brace by Cory THAPA. documented in this encounter Plan of Treatment Upcoming Encounters Date Type Department Care Team (Late st Contact Info) Description 05/31/2024 2:00 PM EST [address] [phone] [address] 06/21/2024 8:30 AM EST Office Visit Ophthalmology, [facility] [address] [place] [address] Dewayne Flores, [address] [place] [address] 06/28/2024 2:00 PM EST Office Visit Orthopaedics [facility] [address] [place] [address] RudirJudie PA-C [address] [place] [address] 07/11/2024 9:00 AM EST Office Visit Transplant Clinic, [place] [address] [place], [place] [phone] Marium Forbes MD [address] [place] [address] Cory Razo MD [address] [place], [place] [phone] Nurse Victor Manuel Renal Transplant [address] [place], [place] [phone] Sophie Morillo, RETOUCHING OPERATOR [address] [place], [place] [phone] 07/11/2024 1:00 PM EST Laboratory Outpatient Laboratory, [place] [address] [place] [address] [facility] B1a [address] [place] [address] Scheduled Procedures Name Priority Associated [...] Additional history exists Lipid Panel 08/19/2028 08/20/2023, 02/02/2021, 06/09/2019, Additional history exists Colonoscopy 11/20/2032 11/20/2022, [...] Documents on File Type Date Recorded Patient Anti Tank Missileman Expl anation Power of Gear Inspector 01/15/2021 POWER OF A TTORNEY * Full [...] Advance Directives occurred with: Patient Care Teams Fur Storage Clerk Relationship Specialty Start Date End Date Genet Cool MD [address] [place] [address] [place] [address] PCP - General Internal Medicine 01/06/23 documented as of this encounter
--- OUTSIDE RECORDS SUMMARY | 2024-06-19 05:05 | External Medical Summary | Summary of Care ---
Author Name Unknown Organization [facility] Address [address] [place] [address] Phone [phone] Care Team Providers Care Physician Advisor Name Role Phone Genet Cool MD Primary Care Provid er Encounter Details Date Type Department Care Team (Late st Contact Info) Description 06/10/2024 1:30 PM EST Nurse Only Orthopaedics [facility] [address] [facility] [place] [address] [facility], Nurse Ortho [facility] 132 [facility] [address] Arrived Allergies Active Allergy Reactions Criticality Noted Date Comments Codeine Itching 05/24/2019 Promethazine Hcl Hives 10/19/2010 Shellfish-Derived Products Anaphylaxis High 04/26/20 18 documented as of this encounter (statuses as of 06/10/2024) Medications [facility] KET[facility] CARE STRPIndications: DKA, type [...] in the morning. 12/17/19 19 Active B Xqiwrds-L-Xrebj Acid (RENAL VITAMIN) 1 MG Capsule TAKE [...] cor pulmonale (HCC),Anticoagul ation management encounter Take 0.5-1 Tablets by mouth every evening. As directed by Anticoagulation clinic 30 Tablet 5 06/06/20 24 Active Hospital, Clinic, or Other Facility [...] as of this encounter (statuses as of 06/10/2024) Active Problems Problem Noted Date Diagnosed Date [...] fracture 03/15/2016 ETOH abuse 04/05/2012 Overview (04/05/2012): [facility] Admission with DKA March [...] as of this encounter (statuses as of 06/10/2024) Resolved Problems Problem Noted Date Diagnosed Date [...] as of this encounter (statuses as of 06/10/2024) Immunizations Name Administration Dates Next Due COVID-19 mRNA, LNP-s, No Pre serve, 2-Dose Series (Moderna) 08/10/2020,07/17/2020 PPD 06/18/2009,04/03/2008 Pneumococcal Conjugate Vacci ne, 20-valent ([id number]) 10/20/2023(Deferred: Contraindication) Pneumococcal Polysaccharide PPV23 (Pneumovax) 04/05/2012,03/31/2007 [...] 06/29/2023 9:31 PM Anabel Tucker, RN * Are you blind or do [...] 06/29/2023 9:31 PM Anabel Tucker, RN * Because of a physical, mental, or emotional condition, do you have difficulty doing errands alone such as visiting a doctors office or shopping? (15 years old or older) Answer Date of Assessment Author No 06/29/2023 9:31 PM Anabel Tucker, RN documented as of this encounter Mental Status * Because of a physical, mental, or emotional condition, do you have serious difficulty concentrating, remembering, or making decisions? (5 years old or older) Answer Entry Date Author No 06/29/2023 9:31 PM Anabel Tucker, RN documented in this encounter Nursing Notes * Danial Pabon CMA - 06/10/2024 1:19 PM EST PT was fitted for Lat off vegetable loader machine operator brace L leg By Cory KENNEY TECH documented in this encounter Plan of Treatment Upcoming Encounters Date Type Department Care Team (Late st Contact Info) Description 06/21/2024 8:30 AM EST Office Visit Ophthalmology, [facility] 132 [facility] [place] [address] Dewayne Flores, 132 [facility] [place] [address] 06/28/2024 1:00 PM EST Anticoagulation Pharmacy, [facility] [address] [facility] [phone] [facility] 9 [facility] [place] [address] 06/28/2024 2:00 PM EST Office Visit Orthopaedics [facility] [address] [place] [address] Sharer, Judie White PA-C [address] [place] [address] 07/11/2024 9:00 AM EST Office Visit Transplant Clinic, [place] [address] [place], [place] [phone] Marium Forbes MD [address] [place] [address] Cory Razo MD [address] [place] [address] Nurse Victor Manuel Renal Transplant [address] [place], [place] [phone] Sophie Morillo LSW [address] [place], [place] [phone] 07/11/2024 1:00 PM EST Laboratory Outpatient Laboratory, [place] [address] [place] [phone] [place] [facility] B1a [address] [place] [address] Scheduled Procedures Name Priority Associated [...] Documents on File Type Date Recorded Patient Fund Director Expl anation Power of Sew Out Operator 01/15/2021 POWER OF A TTORNEY * [...] Advance Directives occurred with: Patient Care Teams Physician Advisor Relationship Specialty Start Date End Date Genet Cool MD [address] [place] [address] [place] [address] PCP - General Internal Medicine 01/06/23 documented as of this encounter
--- OUTSIDE RECORDS SUMMARY | 2024-06-19 05:05 | External Medical Summary | Summary of Care ---
Author Name Unknown Organization [facility] Address [address] [place] [address] Phone [phone] Care Team Providers Care Network Operations Center Technician Name Role Phone Genet Cool MD Primary Care Provid er Reason for Visit * Reason Comments Dosage Adjustment In Person (Anticoag Cl inic) Encounter Details Date Type Department Care Team (Latest Contact Info) Description 05/31/2024 2:00 PM EST Anticoagulation Pharmacy, [facility] [address] [place] [address] [facility] [address] [facility] [place] [address] Anticoagulation management encounter*; End stage renal disease on dialysis ([facility]); Single subsegmental pulmonary embolism without acute cor pulmonale ([facility]); History of DVT in adulthood Allergies Active Allergy Reactions Criticality Noted Date Comments Codeine Itching 05/24/2019 Promethazine Hcl Hives 10/19/2010 Shellfish-Derived Products Anaphylaxis High 04/26/20 18 documented as of this encounter (statuses as of 05/31/2024) Medications [facility] KET[facility] CARE STRPIndications: DKA, type 1 ([facility]),DM type 1 causing renal disease, not at goal ([facility]) check your urine if you feel your [...] in the morning. 12/17/19 19 Active B Afcssjq-X-Pezkx Acid (RENAL VITAMIN) 1 MG Capsule TAKE [...] fracture 03/15/2016 ETOH abuse 04/05/2012 Overview (04/05/2012): [facility] Admission with DKA March 2012 DKA, type [...] PPD 06/18/2009,04/03/2008 Pneumococcal Conjugate Vacci ne, 20-valent ([id number]) 10/20/2023(Deferred: Contraindication) Pneumococcal Polysaccharide PPV23 (Pneumovax) 04/05/2012,03/31/2007 [...] documented in this encounter Progress Notes * Kezia Hayden RPh - 05/31/2024 2:02 PM EST Medication Therapy Disease Management - Anticoagulation Patient: Jorge Alberto Estrella Magali | : 1970 Subjective Patient-Reported Symptoms: Patient Findings Negatives: Signs/symptoms of thrombosis, Signs/symptoms of bleeding, Change in health, Change in alcohol use, Change in activity, Upcoming invasive procedure, Missed doses, Extra doses, Change in medications, Change in diet/appetite, Bruising Objective Current Warfarin Dose As of 05/31/2024 Warfarin maintenance plan: 5 mg (5 mg x 1) every Sun, Tue, Keisha; 2.5 mg (5 mg x 0.5) all other days INR Result As of 05/31/2024 INR goal: 2.0-3.0 INR used for dosin.5 (05/31/2024) Assessment & Plan Warfarin Plan As of 05/31/2024 Full warfarin instructions: 5 mg every Sun, Tue, Keisha; 2.5 mg all other days No change documented: Kezia Hayden RPh Next INR check: 06/28/2024 Repeat PT/INR in 4 week(s) Weekly dose: not changed Additional Dosing Information: Description Dialysis MWF From [facility] 11/11/23: "Dialysis patient undergoing workup at [facility] for possible kidney pancreas transplant with recent diagnosis of DVT. Currently on Eliquis. [facility] requesting change from Eliquis to warfarin. His PCP works with [facility] but they can not see new patients until December. Will start transition in [facility] at least for the time being and look eventuallyto transition to [facility] later in the summer" I spent a total of 10-19 minutes (exact time 10 mins) on the date of service in preparation, delivery, and documentation of the care provided to Jorge Alberto De Los Santos excluding any time spent in the performance of separately billed services or time spent by another provider/QHP. [facility] Clinical Pharmacist 05/31/2024, 2:03 PM Electronically signed by [facility] at 05/31/2024 2:43 PM EST documented in this encounter Plan of Treatment Upcoming Encounters Date Type Department Care Team (Late st Contact Info) Description 06/21/2024 8:30 AM EST Office [facility]hthal[facility], [facility] [place] [address] Dewayne Flores DO [address] [place] [address] 06/28/2024 1:00 PM EST Anticoagulation Pharmacy, [facility] [address] [place] [phone] [address] [address] 06/28/2024 2:00 PM EST Office Visit Orthopaedics [facility] [place] [address] Judie Sanchez PA-C [address] [place] [address] 07/11/2024 9:00 AM EST Office Visit Transplant Clinic, [place] [address] [place] [address] Marium Forbes MD [address] [place] [phone] Cory Razo MD [address] [place], [place] [phone] Nurse Victor Manuel Renal Transplant [address] [place] [address] Sophie Morillo LSW [address] [place], [place] [address] 07/11/2024 1:00 PM EST Laboratory Outpatient Laboratory, [place] [address] [place] [address] [place] [facility] B1a [address] [place], [place] [phone] Scheduled Procedures Name Priority Associated Diagnoses Date/Ti [...] Additional history exists Lipid Panel 08/19/2028 08/20/2023, 0202/2021, 06/09/2019, Additional history exists Colonoscopy 11/20/2032 11/20/2022, [...] Comments INR FINGERSTICK, POINT OF CARE STAT 05/31/2024 2:05 PM EST End stage renal disease on dialysis (HCC) Single subsegmental pulmonary embolism without acute cor pulmonale (HCC) History of DVT in adulthood Anticoagulation management encounter documented in this encounter Results * INR FINGERSTICK, POINT OF CARE (05/31/2024 2:05 PM EST) Fingerstick INR 2.5 INR 2:35 PM EST [facility] 56 Blood 05/31/2024 2:05 PM EST 05/31/2024 2:35 PM EST Narrative [facility] - 05/31/2024 2:35 PM EST Therapeutic ranges for non-operative patients: Prophylaxsis/treatment of DVT: (Range:2.0-3.0) Treatment of pulmonary embolism:(Range:2.0-3.0) Prevention of systemic embolism from: -tissue heart valves -acute myocardial infarction -valvular heart disease -atrial fibrillation (Range: 2.0-3.0) Mechanical prosthetic valves: (Range: 2.5-3.5) Ben Reese V, RPh LAB POINT OF CARE TE ST DOCKED DEVICE UNSOLICITED RESULTS Final Result [facility] [address] [place] [address], [facility] documented in this encounter Visit Diagnoses Diagnosis Anticoagulation management encounter- Primary Encounter for therapeutic drug monitoring End stage renal disease on dialysis (HCC) End stage renal disease Single subsegmental pulmonary embolism without acute cor pulmonale (HCC) History of DVT in adulthood documented in this encounter Advance Directives Documents on File Type Date Recorded Patient Account Development Specialist Expl anation Power of Trimmer Hand 01/15/2021 POWER OF A TTORNEY * Full [...] Advance Directives occurred with: Patient Care Teams Network Operations Center Technician Relationship Specialty Start Date End Date Genet Cool MD [address] [place] [address] [place] [address] PCP - General Internal Medicine 01/06/23 documented as of this encounter
--- OUTSIDE RECORDS SUMMARY | 2024-06-19 05:06 | External Medical Summary ---
Author Name Unknown Address Unknown Organization : Laboratory Report Ordering Provider Test Date Status ALEJANDRA SALAZAR V 05/19/2024 09:31:34 Final Therapeutic ranges for non-o perative patients:
Prophylaxsis/treatment of DVT: (Range:2.0-3.0)
Treatment of pulmonary embolism:(Range:2.0-3.0)
Prevention of systemic embolism from:
-tissue heart valves
-acute myocardial infarction
-valvular heart disease
-atrial fibrillation
(Range: 2.0-3.0)
Mechanical prosthetic valves: (Range: 2.5-3.5) Observation Date Value Abnormality Reference (Units ) Status INR in Capillary blood by Coagulation assay 05/19/2024 09:31:34 3.8 (INR) Final Performing Location
--- OUTSIDE RECORDS SUMMARY | 2024-06-19 05:06 | External Medical Summary | Summary of Care ---
Author Name Unknown Organization [facility] Address [address] [place] [address] Phone [phone] Care Team Providers Care Syrup Machine Laborer Name Role Phone Genet Cool MD Primary Care Provid er Encounter Details Date Type Department Care Team (Late st Contact Info) Description 04/20/2024 Result Scan Unspecified Department <No scans attached> Allergies Active Allergy Reactions Criticality Noted Date Comments Codeine Itching 05/24/2019 Promethazine Hcl Hives 10/19/2010 Shellfish-Derived Products Anaphylaxis High 04/26/20 18 documented as of this encounter (statuses as of 05/18/2024) Medications [facility] K[facility] CARE STRPIndications: DKA, type [...] in the morning. 12/17/19 19 Active B Dexywkg-V-Mjzya Acid (RENAL VITAMIN) 1 MG Capsule TAKE [...] as of this encounter (statuses as of 05/18/2024) Active Problems Problem Noted Date Diagnosed Date [...] as of this encounter (statuses as of 05/18/2024) Resolved Problems Problem Noted Date Diagnosed Date [...] as of this encounter (statuses as of 05/18/2024) Immunizations Name Administration Dates Next Due COVID-19 mRNA, LNP-s, No Pre serve, 2-Dose Series (Moderna) 08/10/2020,07/17/2020 PPD 06/18/2009,04/03/2008 Pneumococcal Conjugate Vacci ne, 20-valent ([id number]) 10/20/2023(Deferred: Contraindication) Pneumococcal Polysaccharide PPV23 (Pneumovax) 04/05/2012,03/31/2007 [...] Entry Date Author No 06/29/2023 9:31 PM EST Anabel Fermin RN documented in this encounter Plan of Treatment Upcoming Encounters Date Type Department Care Team (Late st Contact Info) Description 05/19/2024 9:30 AM EST [facility] 226 [facility] [place] [phone] [facility] [address] [place] [address] 05/25/2024 2:00 PM EST Office Visit Orthopaedics [facility] 132 [facility] [address] Judie Sanchez PA-C [address] [place] [address] 06/21/2024 8:30 AM EST Office Visit Ophthalmology, [facility] [address] [facility] [place] [address] Dewayne Flores DO [address] [place] [address] 07/11/2024 9:00 AM EST [facility] [address] [place] [address] Marium Forbes MD [address] [place] [address] Cory Razo MD [address] [place], [place] Nurse Victor Manuel Renal Transplant [address] [place] [address] Sophie Morillo LSW [address] [place], [place] 07/11/2024 1:00 PM EST Laboratory Outpatient Laboratory, [place] [address] [place] [phone] [place], Lab B1a [address] [place] [address] Scheduled Procedures Name Priority Associated Diagnoses Date/Ti [...] Procedure Name Priority Date/Time Associated Diagnosis Comments RADIOLOGY SCANNED RESULT 04/20/2024 documented in this encounter Results * RADIOLOGY SCANNED RESULT (04/20/2024) 04/20/2024 us No Physician Data Unknown DIAGNOSTIC RADIOLOGY S ERVICES Final Result documented in this encounter Advance Directives Documents on File Type Date Recorded Patient Warehouse Checker Expl anation Power of Public Works Director 01/15/2021 POWER OF A TTORNEY * Full [...] Advance Directives occurred with: Patient Care Teams Syrup Machine Laborer Relationship Specialty Start Date End Date Genet Cool MD [address] [place] [address] [place] [address] PCP - General Internal Medicine 01/06/23 documented as of this encounter
--- OUTSIDE RECORDS SUMMARY | 2024-06-19 05:06 | External Medical Summary | Summary of Care ---
Author Name Unknown Organization [facility] Address [address] [place] [address] Phone [phone] Care Team Providers Care Rotary Bar Operator Name Role Phone Genet Cool MD Primary Care Provid er Reason for Visit * Reason Onset Date Comments Advice 05/30/2024 Encounter Details Date Type Department Care Team (Late st Contact Info) Description 05/30/2024 Telephone Orthopaedics [facility] [address] [place] [address] Sharer, Judie Whtie PA-C [address] [place] [address] Advice Allergies Active Allergy Reactions Criticality Noted [...] in the morning. 12/17/19 19 Active B Piexhzq-G-Wlhnk Acid (RENAL VITAMIN) 1 MG Capsule TAKE [...] fracture 03/15/2016 ETOH abuse 04/05/2012 Overview (04/05/2012): [facility] Admission with DKA March 2012 DKA, [...] PPD 06/18/2009,04/03/2008 Pneumococcal Conjugate Vacci ne, 20-valent ([id number]) 10/20/2023(Deferred: Contraindication) Pneumococcal Polysaccharide PPV23 (Pneumovax) 04/05/2012,03/31/2007 [...] Anabel Tucker, RN documented in this encounter Miscellaneous Notes * Telephone Encounter - Belkis Vargas MED ASSIST - 05/31/2024 9:18 AM EST All information was given to Cory. Will follow up with him today in regards to brace. * Telephone Encounter - Sandy Barboza OSA - 05/30/2024 4:21 PM EST Pt said during his appt 05/25 she said some one would look into insurance on a brace. Pt has not heard anything. Please follow up with pt. [phone] documented in this encounter Plan of Treatment Upcoming Encounters Date Type Department Care Team (Late st Contact Info) Description 05/31/2024 2:00 PM EST Anticoagulation Pharmacy, [address] [place] [phone] [facility] [address] [facility] [place] [address] 06/21/2024 8:30 AM EST Office Visit Ophthalmology, [facility] [address] [place] [address] Dewayne Flores, DO 132 [facility] [place] [address] 06/28/2024 2:00 PM EST Office Visit Orthopaedics [facility] [address] [place] [address] SharerJudie PA-C [address] [place] [address] 07/11/2024 9:00 AM EST Office Visit Transplant Clinic, [place] [address] [place] [address] Marium Forbes MD [address] [place] [phone] Cory Razo MD [address] [place] [address] Victor Manuel Nurse Renal Transplant [address] [place] [address] Sophie Morillo LSW [address] [place] [address] 07/11/2024 1:00 PM EST Laboratory Outpatient Laboratory, [place] [address] [place] [phone] [place], Lab B1a [address] [place], [place] [phone] Scheduled Procedures Name Priority Associated Diagnoses Date/Ti [...] Documents on File Type Date Recorded Patient Senior Business Development Manager Expl anation Power of Mold Car Pusher 01/15/2021 POWER OF A TTORNEY * Full [...] Advance Directives occurred with: Patient Care Teams Rotary Bar Operator Relationship Specialty Start Date End Date Genet Cool MD [address] [place] [address] [place] [address] PCP - General Internal Medicine 01/06/23 documented as of this encounter
--- OUTSIDE RECORDS SUMMARY | 2024-06-19 05:06 | External Medical Summary | Summary of Care ---
Author Name Unknown Organization [facility] Address [address] [place] [address] Phone [phone] Care Team Providers Care Physical Science Professor Name Role Phone Genet Cool MD Primary Care Provid er Reason for Visit * Reason Comments Dosage Adjustment In Person (Anticoag Cl inic) Encounter Details Date Type Department Care Team (Latest Contact Info) Description 05/19/2024 9:30 AM EST Anticoagulation Pharmacy, [facility] [address] [place] [address] [facility] [address] [facility] [place] [address] Anticoagulation management encounter*; End stage renal disease on dialysis ([facility]); Single subsegmental pulmonary embolism without acute cor pulmonale ([facility]); History of DVT in adulthood Allergies Active Allergy Reactions Criticality Noted Date Comments Codeine Itching 05/24/2019 Promethazine Hcl Hives 10/19/2010 Shellfish-Derived Products Anaphylaxis High 04/26/20 18 documented as of this encounter (statuses as of 05/19/2024) Medications [facility] STRPIndications: DKA, type 1 ([facility]),DM type 1 causing renal disease, not at goal ([facility]) check your urine if you feel your [...] in the morning. 12/17/19 19 Active B Koxkwbl-P-Muond Acid (RENAL VITAMIN) 1 MG Capsule TAKE [...] as of this encounter (statuses as of 05/19/2024) Active Problems Problem Noted Date Diagnosed Date [...] fracture 03/15/2016 ETOH abuse 04/05/2012 Overview (04/05/2012): [facility] March 2012 DKA, [...] as of this encounter (statuses as of 05/19/2024) Resolved Problems Problem Noted Date Diagnosed Date [...] as of this encounter (statuses as of 05/19/2024) Immunizations Name Administration Dates Next Due COVID-19 mRNA, LNP-s, No Pre serve, 2-Dose Series (Moderna) 08/10/2020,07/17/2020 PPD 06/18/2009,04/03/2008 Pneumococcal Conjugate Vacci ne, 20-valent ([id number]) 10/20/2023(Deferred: Contraindication) Pneumococcal Polysaccharide PPV23 (Pneumovax) 04/05/2012,03/31/2007 [...] in this encounter Progress Notes * Kezia Hayden, [facility] - 05/19/2024 9:27 AM EST Images from the original note were not included. Medication Therapy Disease Management - Anticoagulation Patient: Jorge Alberto Estrella [place] | : 1970 Subjective Patient-Reported Symptoms: Patient Findings Positives: Bruising Negatives: Signs/symptoms of thrombosis, Signs/symptoms of bleeding, Change in health, Change in alcohol use, Change in activity, Upcoming invasive procedure, Missed doses, Extra doses, Change in medications, Change in diet/appetite Objective Current Warfarin Dose As of 05/19/2024 Warfarin maintenance plan: 2.5 mg (5 mg x 0.5) every Mon, Wed, Fri; 5 mg (5 mg x 1) all other days INR Result As of 05/19/2024 INR goal: 2.0-3.0 INR used for dosin.8 (05/19/2024) Assessment & Plan Warfarin Plan As of 05/19/2024 Full warfarin instructions: 05/19: Hold; Otherwise 5 mg every Thu, Thu, Keisha; 2.5 mg all other days Next INR check: 05/31/2024 Repeat PT/INR in 2 week(s) Weekly dose: decreased Additional Dosing Information: Description Dialysis MWF From TE 11/11/23: "Dialysis patient undergoing workup at [facility] for possible kidney pancreas transplant with recent diagnosis of DVT. Currently on Eliquis. [facility] requesting change from Eliquis to warfarin. [facility] can not see new patients until December. Will start transition in [facility] at least for the [...] time spent by another provider/QHP. Kezia Hayden [facility] Clinical Pharmacist 05/19/2024, 9:27 AM documented in this encounter Plan of Treatment Upcoming Encounters Date Type Department Care Team (Late st Contact Info) Description 05/25/2024 2:00 PM EST Office Visit Orthopaedics [facility] [address] [facility] [place] [address] SharerJudie PA-C [address] [facility] [address] 05/31/2024 2:00 PM EST Anticoagulation Pharmacy, [address] [phone] [address] [address] 06/21/2024 8:30 AM EST Office Visit [facility]hthalmology, [facility] [place] [address] Dewayne Flores DO [address] [place] [address] 07/11/2024 9:00 AM EST Office Visit Transplant Clinic, [facility] [address] [place] [address] Marium Forbes MD [address] [place] [phone] Cory Razo MD [address] [place], [place] [phone] Nurse Victor Manuel Renal Transplant [address] [place] [address] Sophie Morillo LSW [address] [place] [address] 07/11/2024 1:00 PM EST Laboratory Outpatient Laboratory, [place] [address] [place] [address] [facility], Lab B1a [address] [place], [place] [phone] Scheduled Procedures Name Priority Associated Diagnoses Date/Ti [...] Additional history exists Lipid Panel 08/19/2028 08/20/2023, 02/2021, 06/09/2019, Additional history exists Colonoscopy 11/20/2032 [...] Comments INR FINGERSTICK, POINT OF CARE STAT 05/19/2024 9:31 AM EST End stage renal disease on dialysis (HCC) Single subsegmental pulmonary embolism without acute cor pulmonale (HCC) History of DVT in adulthood Anticoagulation management encounter documented in this encounter Results * INR FINGERSTICK, POINT OF CARE (05/19/2024 9:31 AM EST) Fingerstick INR 3.8 INR 9:34 AM EST [facility]- Blood 05/19/2024 9:31 AM EST 05/19/2024 9:34 AM EST Narrative [facility]01 - 05/19/2024 9:34 AM EST Therapeutic ranges for non-operative patients: Prophylaxsis/treatment of DVT: (Range:2.0-3.0) Treatment of pulmonary embolism:(Range:2.0-3.0) Prevention of systemic embolism from: -tissue heart valves -acute myocardial infarction -valvular heart disease -atrial fibrillation (Range: 2.0-3.0) Mechanical prosthetic valves: (Range: 2.5-3.5) Ben Reese V, [facility] LAB POINT OF CARE TE ST DOCKED DEVICE UNSOLICITED RESULTS Final Result [facility]- [address] [place] [address], [facility] documented in this encounter Visit Diagnoses Diagnosis Anticoagulation management encounter- Primary Encounter for therapeutic drug monitoring End stage renal disease on dialysis (HCC) End stage renal disease Single subsegmental pulmonary embolism without acute cor pulmonale (HCC) History of DVT in adulthood documented in this encounter Advance Directives Documents on File Type Date Recorded Patient Hob Grinder Expl anation Power of Rabbler 01/15/2021 POWER OF A TTORNEY * Full [...] Advance Directives occurred with: Patient Care Teams Physical Science Professor Relationship Specialty Start Date End Date Genet Cool MD [address] [place] [address] [place] [address] PCP - General Internal Medicine 01/06/23 documented as of this encounter
--- OUTSIDE RECORDS SUMMARY | 2024-06-19 05:06 | External Medical Summary | Summary of Care ---
Author Name Unknown Organization [facility] Address [address] [place] [address] Phone [phone] Care Team Providers Care Insurance Defense Attorney Name Role Phone Genet Cool MD Primary Care Provid er Reason for Visit * Reason Onset Date Comments MyCode Consent 05/19/2024 Encounter Details Date Type Department Care Team (Late st Contact Info) Description 05/19/2024 Orders Only Outcomes Research Department [address] [place] [address] Anju Pimentel CHRA MyCode Research Other*[id number]* Allergies Active Allergy Reactions Criticality Noted Date [...] in the morning. 12/17/19 19 Active B Ofcvudq-P-Adufi Acid (RENAL VITAMIN) 1 MG Capsule TAKE [...] fracture 03/15/2016 ETOH abuse 04/05/2012 Overview (04/05/2012): [facility] Admission with DKA [...] PPD 06/18/2009,04/03/2008 Pneumococcal Conjugate Vacci ne, 20-valent ([id number]) 10/20/2023(Deferred: Contraindication) Pneumococcal Polysaccharide PPV23 (Pneumovax) 04/05/2012,03/31/2007 [...] of Assessment Author No 06/29/2023 9:31 PM EST Anabel Fermin RN documented as of this encounter Mental Status * Because of a physical, mental, or emotional condition, do you have serious difficulty concentrating, remembering, or making decisions? (5 years old or older) Answer Entry Date Author No 06/29/2023 9:31 PM EST Anabel Fermin RN documented in this encounter Progress Notes * Anju Pimentel CHRA - 05/19/2024 9:26 AM EST MyCode Consent Documentation Jorge Alberto De Los Santos provided consent/authorization to participate in the MyCode Project. documented in this encounter Plan of Treatment Upcoming Encounters Date Type Department Care Team (Late st Contact Info) Description 05/25/2024 2:00 PM EST Office Visit [facility]opaedics [facility] [place] [address] SharerJudie PA-C [address] [place] [address] 05/31/2024 2:00 PM EST Anticoagulation Pharmacy, [facility] [address] [place] [phone] [address] [address] 06/21/2024 8:30 AM EST Office Visit Ophthalmology, [facility] [address] [place] [address] Dewayne Flores DO [address] [place] [address] 07/11/2024 9:00 AM EST Office Visit Transplant Clinic, [address] [address] Marium Forbes MD [address] [place] [phone] Cory Razo MD [address] [place] [address] Nurse Victor Manuel Renal Transplant [address] [place] [address] Sophie Morillo LSW [address] [place] [address] 07/11/2024 1:00 PM EST Laboratory Outpatient Laboratory, Organ [address] [place] [phone] Organ, Lab B1a [address] [place], [place] [phone] Scheduled Orders Name Type Priority Associated Diagnoses Orde r Schedule MYCODE INITIAL ADULT Lab Routine MyCode Research Other*[id number] Expected: 05/19/2024 (Approximate), Expires: 06/08/2025 Scheduled Procedures Name Priority Associated Diagnoses Date/Ti [...] 03/05/2020, Additional history exists HbA1c 05/07/2024 11/06/2023, 11/2023, 06/30/2023, Additional history exists Diabetic Eye Exam 04/21/2025 04/21/2024, , 11/19/2022, Additional history exists Lipid Panel 08/19/2028 08/20/2023, 0 02/2021, 06/09/2019, Additional history exists Colonoscopy 11/20/2032 [...] as of this encounter Visit Diagnoses Diagnosis MyCode Research Other*[id number]- Primary documented in this encounter Advance Directives Documents on File Type Date Recorded Patient Slate Cutter Operator Expl anation Power of Manager [place] 01/15/2021 POWER OF A TTORNEY * Full [...] Advance Directives occurred with: Patient Care Teams Insurance Defense Attorney Relationship Specialty Start Date End Date Genet Cool MD [address] [place] [address] [place] [address] PCP - General Internal Medicine 01/06/23 documented as of this encounter
--- OUTSIDE RECORDS SUMMARY | 2024-06-19 05:06 | External Medical Summary | Summary of Care ---
Author Name Unknown Organization [facility] Address [address] [place] [address] Phone [phone] Care Team Providers Care Dip Stand Loader Name Role Phone Genet Cool MD Primary Care Provid er Reason for Visit * Reason Comments Follow Up PT is here for a 1m follow up for L leg. Pt denies pain at this time. Encounter Details Date Type Department Care Team (Late st Contact Info) Description 05/25/2024 2:00 PM EST Office Visit Orthopaedics [facility] [address] [place] [address] Sharer, Judie White PA-C [address] [place] [address] Closed fracture of left tibial plateau, initial encounter* Allergies Active Allergy Reactions Criticality Noted Date Comments Codeine Itching 05/24/2019 Promethazine Hcl Hives 10/19/2010 Shellfish-Derived Products Anaphylaxis High 04/26/20 18 documented as of this encounter (statuses as of 05/25/2024) Medications [facility] STRPIndications: DKA, type [...] in the morning. 12/17/19 19 Active B Bumnjvf-I-Mipov Acid (RENAL VITAMIN) 1 MG Capsule TAKE [...] as of this encounter (statuses as of 05/25/2024) Active Problems Problem Noted Date Diagnosed Date [...] fracture 03/15/2016 ETOH abuse 04/05/2012 Overview (04/05/2012): [facility] Admission with DKA March 2012 [...] as of this encounter (statuses as of 05/25/2024) Resolved Problems Problem Noted Date Diagnosed Date [...] as of this encounter (statuses as of 05/25/2024) Immunizations Name Administration Dates Next Due COVID-19 mRNA, LNP-s, No Pre serve, 2-Dose Series (Moderna) 08/10/2020,07/17/2020 PPD 06/18/2009,04/03/2008 Pneumococcal Conjugate Vacci ne, 20-valent ([id number]) 10/20/2023(Deferred: Contraindication) Pneumococcal Polysaccharide PPV23 (Pneumovax) 04/05/2012,03/31/2007 [...] documented in this encounter Progress Notes * Sharer, Judie White PA-C - 05/25/2024 1:31 PM EST Jorge Alberto De Los Santos is a 53 year old male who presents for consultation to [facility] for left knee injury/pain. Consult requested by Self . Jorge Alberto De Los Santos is here unaccompanied History: Jorge Alberto De Los Santos presents for follow up of depressed lateral plateau fracture. Date of injury was04/12/2024. He was remain nonweightbearing. Reports interval improvement. Review of systems: All others negative except [...] Capsule by mouth in the morning. B Kbyrtkr-O-Szbtu Acid (RENAL VITAMIN) 1 MG Capsule TAKE [...] 1.25 mg 1.25 mg Intravitreal PRN Dewayne Flores, DO 2.75 mg at 04/21/24 0817 ROPivacaine (Naropin) inj 1.5 mg 1.5 mg Perineural PRN Dewayne Flores, DO 1.5 mg at 817 Past Medical History: Diagnosis Date Alcohol abuse Anxiety state C. difficile colitis Calcium nephrolithiasis Calcium oxalate kidney stones Depression Dialysis patient ([facility]) via perm cath DM type 1 causing renal disease, not at goal ([facility]) DM type 1, not at goal ([facility]) 2001 Dyslipidemia, goal LDL below 160 2004 For someone with Diabetes End-stage renal disease on hemodialysis ([facility]) Gastroparesis Kidney failure Pleural effusion PONV (postoperative nausea and vomiting) Retinopathy due to secondary DM ([facility]) Patient Active Problem List Diagnosis Anxiety state Calcium nephrolithiasis DM type 1 causing renal disease, not at goal ([facility]) Hematemesis Type 1 diabetes mellitus with hemoglobin A1c goal of less than 7.0% ([facility]) Dyslipidemia, goal LDL below 100 DKA, type 1 ([facility]) Hypophosphatemia Hypomagnesemia ETOH abuse Hydronephrosis with ureteral calculus Acute pyelonephritis T12 compression fracture ([facility]) Gastroparesis End stage renal disease on dialysis ([facility]) Vitreous hemorrhage of left eye ([facility]) Intractable nausea and vomiting Metabolic alkalosis Thrush Severe malnutrition ([facility]) Pyloric stenosis in adult History of Clostridioides difficile infection Stool culture positive for Clostridium difficile Single subsegmental pulmonary embolism without acute cor pulmonale ([facility]) Pericardial effusion Recurrent pleural effusion on left Secondary DM with hypertension and ESRD on dialysis ([facility]) Hx of diabetic gastroparesis Prolonged QT interval History of DVT in adulthood Past Surgical History: Procedure Laterality Date APPENDECTOMY W/OTHER PROCEDURE BOTULINUMTOXIN A (LUKE), 1 UNIT, INJ. N/A 09/24/2020 INJECTION, ONABOTULINUMTOXIN A, 1 UNIT (BOTOX) performed by Tremaine Martinez MD at OR [facility] COLONOSCOPY, DIAGNOSTIC (RECTUM) N/A 11/20/2022 hemorrhoids/recall 10 years/COLONOSCOPY FLEXIBLE PROXIMAL DIAGNOSTIC performed by Ebonie Mc DO at OR [facility] CYSTOSCOPY/INSERTION OF STENT Left 03/14/2016 CYSTOURETHROSCOPY WITH INSERTION URETERAL STENT performed by Morena Dodge MD at [facility] [address] EGD, FLEXIBLE, DIAGNOSTIC 02/15/2018 reflux esophagitis, repeat 3 mo/[facility] EGD, FLEXIBLE, DIAGNOSTIC 05/17/2018 retained food, otherwise normal/ESOPHAGOGASTRODUODENOSCOPY (EGD), FLEXIBLE, TRANSORAL, DIAGNOSTIC performed by Tim Browne MD at ENDOSCOPY [facility] EGD, FLEXIBLE, DIAGNOSTIC N/A 09/24/2020 severe thrush, esophagitis/mild stenosis of pylorus/100 units botox injected/pylorus dilated/biopsies show mild inflammation of small intestine/ESOPHAGOGASTRODUODENOSCOPY (EGD), FLEXIBLE, TRANSORAL, DIAGNOSTIC performed by Tremaine Martinez MD at OR [facility] EGD, FLEXIBLE, DIAGNOSTIC N/A 11/03/2023 normal/GPOEM performed/ESOPHAGOGASTRODUODENOSCOPY (EGD), FLEXIBLE, TRANSORAL, DIAGNOSTIC performed by Tim Browne MD at OR [facility] EGD, FLEXIBLE, DIAGNOSTIC N/A 08/06/2023 small amount of food stomach/severe pylorospasm, injected with botulinum toxin/EGD/[place] FRAGMENT KIDNEY STONE BY SHOCK WAVE X [...] performed by Chintan Marley DO at OR [facility] INSERT CANNULA, ARTERY-VEIN, CLINICAL PHARMACIST 05/19/2019 INTRO CATH DIALYSIS CIRCUIT DX ANGIOGRAPHY FLUORO S&I Left 10/18/2020 AV FISTULOGRAM DIAGNOSTIC performed by Julian James MD at OR [facility] INTRO CATH DIALYSIS CIRCUIT DX ANGIOGRAPHY FLUORO S&I Left 2021 AV FISTULOGRAM DIAGNOSTIC performed by Len Salmeron MD at OR [facility] INTRO CATH DIALYSIS CIRCUIT DX ANGIOGRAPHY FLUORO S&I Left 06/12/2022 AV FISTULOGRAM DIAGNOSTIC performed by Julian James MD at OR [facility] INTRO CATH DIALYSIS CIRCUIT DX ANGIOGRAPHY FLUORO S&I Left 01/08/2023 AV FISTULOGRAM DIAGNOSTIC performed by Julian James MD at OR [facility] INTRO CATH DIALYSIS CIRCUIT W/TRANSLUM BALLOON ANGIOPLASTY Left 10/20/2023 AV FISTULOGRAM & PERIPHERAL ANGIOPLASTY performed by Godwin Sexton MD at OR [facility] LASER SURGERY OF INNER EYE STRANDS Right 07/12/2019 Laser procedure OD, LASER TRABECULOPLASTY 01/13/2008 focal laser left eye Dr Andres LOWER ESOPHAGEAL MYOTOMY, TRANSORAL N/A 11/03/2023 GPOEM/LOWER ESOPHAGEAL MYOTOMY, TRANSORAL (IE, PERORAL ENDOSCOPIC MYOTOMY [POEM]) performed by Tim Browne MD at OR [facility] MISCELLANEOUS ORDER ([facility] ONLY) Removal of wisdom teeth MISCELLANEOUS ORDER ([facility] ONLY) ACT 112 SIGNED 03/08/19 DR. FLORES MISCELLANEOUS ORDER ([facility] ONLY) Bilateral 03/08/2019-03/08/2020 AVASTIN OU CONSENT SIGNED, Dr. Flroes MISCELLANEOUS ORDER ([facility] ONLY) Bilateral AVASTIN CONSENT SIGNED DR. FLORES 03/13/20-03/13/21 OTHER (INFORMATION) Bilateral AVASTIN OU CONSENT DR. FLORES/ANAND EXP. 03/12/22 OTHER (INFORMATION) Bilateral AV[facility] OU CONSENT DR. FLORES/ANAND EXP. 10/07/24 SHOULDER ARTHROSCOPY/SURGERY Right "years ago" TRANSLUMINAL BALLOON ANGIOPLASTY CENTRAL DIALYSIS SEGMENT W/IMAGING 10/18/2020 ANGIOPLASTY CENTRAL DIALYSIS SEGMENT performed by Julian James MD at OR [facility] TRANSLUMINAL BALLOON ANGIOPLASTY CENTRAL DIALYSIS SEGMENT W/IMAGING Left 2021 ANGIOPLASTY CENTRAL DIALYSIS SEGMENT performed by Len Salmeron MD at OR [facility] TRANSLUMINAL BALLOON ANGIOPLASTY CENTRAL DIALYSIS SEGMENT W/IMAGING 06/12/2022 ANGIOPLASTY CENTRAL DIALYSIS SEGMENT performed by Julian James MD at OR [facility] TRANSLUMINAL BALLOON ANGIOPLASTY CENTRAL DIALYSIS SEGMENT W/IMAGING 01/08/2023 ANGIOPLASTY CENTRAL DIALYSIS SEGMENT performed by Julian James MD at [facility] [address] TREATMENT OF EXTENSIVE RETINOPATHY, PHOTOCOAGULATION Left 10/11/2018 PRP OS #1 Dr. Greenberg (new consent) VITRECTOMY/LASER COAGULATION Left 03/28/2020 VITRECTOMY MECHANICAL PARS PLANA APPROACH WITH ENDOLASER PANRETINAL performed by Andrew Aceves MD at OR [facility] Social History Socioeconomic History Marital status: Spouse name: Cinda Number of children: 1 Years of education: 17 Highest education level: Not on file Occupational History Occupation: Disabled on SSI Tobacco Use Smoking status: Never Smokeless tobacco: Former Types: Chew Quit date: 02/10/2019 Vaping Use Vaping status: Never Used Substance and Sexual Activity Alcohol use: Not Currently Comment: Last drink: 06/07/16; 3-4 beers/day x 5 years Drug use: [...] Stability Do you currently live in a intermediate or have no steady place to sleep [...] lateral tibia ROM: Full knee extension. Flexion slightly limited with pain Strength: R- Strength: Extension [...] (I have personally reviewed the following films): Four view x-ray of the left knee was obtained today and reviewed with patient. Those x-rays show a healing and stable appearing depressed lateral plateau fracture Assessment and Plan: Closed fracture of left tibial plateau, initial encounter (Primary) - CT LOWER EXTREMITY LEFT WO CONTRAST; Future; Expected date: 04/21/2024 Recommend transitioning to a lateral nude model brace and protected weight-bearing as tolerated. Encouraged ice. Recommend follow up in 1 month with a repeat x-rays Judie Sanchez PA-C [facility] [address] [place] [address] documented in this encounter Nursing Notes * Danial Pabon CMA - 05/25/2024 1:32 PM EST PT is here for a 1m follow up for L leg. Pt denies pain at this time. documented in this encounter Plan of Treatment Upcoming Encounters Date Type Department Care Team (Late st Contact Info) Description 05/31/2024 2:00 PM EST [address] [place] [phone] [place] [phone] [facility] [place] [address] 06/21/2024 8:30 AM EST Office Visit Ophthalmology, [facility] [address] [facility] [place] [address] Dewayne Flores, [address] [place] [address] 06/28/2024 2:00 PM EST Office Visit Orthopaedics [facility] [address] [facility] [place] [address] Sharer, Judie White PA-C [address] [place] [address] 07/11/2024 9:00 AM EST Office Visit Transplant Clinic, [facility] [address] [place] [address] Marium Forbes MD [address] [place] [phone] Cory Razo MD [address] [place] [address] Nurse Victor Manuel Renal Transplant [address] [place] [address] Sophie Morillo LSW [address] [place] [address] 07/11/2024 1:00 PM EST Laboratory Outpatient Laboratory, [facility] [address] [place] [address] [facility] B1a [address] [place], [place] [phone] Pending Results Name Type Priority Associated Diagnoses Date /Time XR KNEE 4 OR MORE VIEWS Medical Imaging Routine Closed fracture of left tibial plateau, initial encounter 05/25/2024 1:49 PM EST Scheduled Procedures Name Priority Associated Diagnoses Date/Ti [...] as of this encounter Visit Diagnoses Diagnosis Closed fracture of left tibial plateau, initial encounter- Primary documented in this encounter Advance Directives Documents on File Type Date Recorded Patient Internet Technology Manager Expl anation Power of Heavy Media Operator 01/15/2021 POWER OF A TTORNEY * [...] Advance Directives occurred with: Patient Care Teams Dip Stand Loader Relationship Specialty Start Date End Date Genet Cool MD [address] [place] [address] [place] [address] PCP - General Internal Medicine 01/06/23 documented as of this encounter
--- OUTSIDE RECORDS SUMMARY | 2024-06-19 05:06 | External Medical Summary ---
Author Name Unknown Address Unknown Organization : Laboratory Report Ordering Provider Test Date Status ALEJANDRA SALAZAR V 05/31/2024 14:05:34 Final Therapeutic ranges for non-o perative patients:
Prophylaxsis/treatment of DVT: (Range:2.0-3.0)
Treatment of pulmonary embolism:(Range:2.0-3.0)
Prevention of systemic embolism from:
-tissue heart valves
-acute myocardial infarction
-valvular heart disease
-atrial fibrillation
(Range: 2.0-3.0)
Mechanical prosthetic valves: (Range: 2.5-3.5) Observation Date Value Abnormality Reference (Units ) Status INR in Capillary blood by Coagulation assay 05/31/2024 14:05:34 2.5 (INR) Final Performing Location
--- OUTSIDE RECORDS SUMMARY | 2024-06-19 05:06 | External Medical Summary | Summary of Care ---
Author Name Unknown Organization [facility] Address [address] [place] [address] Phone [phone] Care Team Providers Care Manager Community Name Role Phone Genet Cool MD Primary Care Provid er Encounter Details Date Type Department Care Team (Latest Contact Info) Description 04/20/2024 11:15 PM EST - 04/20/2024 11:59 PM EST Hospital Encounter Radiology Film File [address] [place] [address] Discharge Disposition: Home - Self Care Allergies Active Allergy Reactions Criticality Noted Date Comments Codeine Itching 05/24/2019 Promethazine Hcl Hives 10/19/2010 Shellfish-Derived Products Anaphylaxis High 04/26/20 18 documented as of this encounter (statuses as of 05/21/2024) Medications [facility] STRPIndications: DKA, type [...] in the morning. 12/17/19 19 Active B Tubjcia-J-Uvinq Acid (RENAL VITAMIN) 1 MG Capsule TAKE [...] as of this encounter (statuses as of 05/21/2024) Active Problems Problem Noted Date Diagnosed Date [...] fracture 03/15/2016 ETOH abuse 04/05/2012 Overview (04/05/2012): [facility] Admission with DKA [...] as of this encounter (statuses as of 05/21/2024) Resolved Problems Problem Noted Date Diagnosed Date [...] as of this encounter (statuses as of 05/21/2024) Immunizations Name Administration Dates Next Due COVID-19 mRNA, LNP-s, No Pre serve, 2-Dose Series (Moderna) 08/10/2020,07/17/2020 PPD 06/18/2009,04/03/2008 Pneumococcal Conjugate Vacci ne, 20-valent ([id number]) 10/20/2023(Deferred: Contraindication) Pneumococcal Polysaccharide PPV23 (Pneumovax) 04/05/2012,03/31/2007 [...] Anabel Tucker, RN documented in this encounter Plan of Treatment Upcoming Encounters Date Type Department Care Team (Late st Contact Info) Description 05/25/2024 2:00 PM EST Office Visit Orthopaedics [facility] [address] [facility] [place] [address] Sharer, Judie White PA-C [address] [place] [address] 05/31/2024 2:00 PM EST [facility] [address] [place] [id number] [id number] [place] [address] 06/21/2024 8:30 AM EST Office Visit Ophthalmology, [facility] [address] [facility] [place] [address] Dewayne Flores DO [address] [place] [address] 07/11/2024 9:00 AM EST Office Visit Transplant Clinic, [place] [address] [place] [address] Marium Forbes MD [address] [place] [address] Cory Razo MD [address] [place] [address] Nurse Victor Manuel Renal Transplant [address] [place] [address] Sophie Morillo, DIESEL CRANE OPERATOR [address] [place] [address] 07/11/2024 1:00 PM EST Laboratory Outpatient Laboratory, [place] [address] [place] [phone] [place], Lab B1a [address], [place] [id number] Scheduled Procedures Name Priority Associated Diagnoses Date/Ti [...] Name Priority Date/Time Associated Diagnosis Comments RADIOLOGY EXAM - GENERAL RAD (IMAGES ONLY,NO REPORT) Routine 04/20/2024 11:15 PM EST documented in this encounter Results * RADIOLOGY EXAM - GENERAL RAD (IMAGES ONLY,NO REPORT) (04/20/2024 11:15 PM EST) 04/20/2024 11:0 9 PM EST Narrative Scheduling, Silent - 05/20/2024 4:45 PM EST This is an imaging study not interpreted or resulted by a [facility]. Judie White Sharer [facility] (RAD GENERAL) F inal Result documented in this encounter Advance Directives Documents on File Type Date Recorded Patient Educational Psychology Teacher Expl anation Power of Ironer 01/15/2021 POWER OF A TTORNEY * Full [...] Advance Directives occurred with: Patient Care Teams Manager Community Relationship Specialty Start Date End Date Genet Cool MD [address] [place] [address] [place] [address] PCP - General Internal Medicine 01/06/23 documented as of this encounter
--- OUTSIDE RECORDS SUMMARY | 2024-06-19 05:06 | External Medical Summary | Summary of Care ---
Author Name Unknown Organization [facility] Address [address] [place] [address] Phone [phone] Care Team Providers Care Stone Finisher Name Role Phone Genet Cool MD Primary Care Provid er Encounter Details Date Type Department Care Team (Late st Contact Info) Description 04/20/2024 Orders Only Orthopaedics [facility] [address] [place] [address] SharerJudie PA-C [address] [place] [address] Allergies Active Allergy Reactions Criticality Noted Date Comments Codeine Itching 05/24/2019 Promethazine Hcl Hives 10/19/2010 Shellfish-Derived Products Anaphylaxis High 04/26/20 18 documented as of this encounter (statuses as of 05/20/2024) Medications [facility] STRPIndications: DKA, type [...] in the morning. 12/17/19 19 Active B Qfgfshg-V-Firie Acid (RENAL VITAMIN) 1 MG Capsule TAKE [...] as of this encounter (statuses as of 05/20/2024) Active Problems Problem Noted Date Diagnosed Date [...] fracture 03/15/2016 ETOH abuse 04/05/2012 Overview (04/05/2012): [facility] Admission with DKA March [...] as of this encounter (statuses as of 05/20/2024) Resolved Problems Problem Noted Date Diagnosed Date [...] as of this encounter (statuses as of 05/20/2024) Immunizations Name Administration Dates Next Due COVID-19 mRNA, LNP-s, No Pre serve, 2-Dose Series (Moderna) 08/10/2020,07/17/2020 PPD 06/18/2009,04/03/2008 Pneumococcal Conjugate Vacci ne, 20-valent ([id number]) 10/20/2023(Deferred: Contraindication) Pneumococcal Polysaccharide PPV23 (Pneumovax) 04/05/2012,03/31/2007 [...] Anabel Tucker RN documented in this encounter Plan of Treatment Upcoming Encounters Date Type Department Care Team (Late st Contact Info) Description 05/25/2024 2:00 PM EST Office [facility] [place] [address] SharerJudie PA-C [address] [place] [address] 05/31/2024 2:00 PM EST Anticoagulation Pharmacy, [facility] [address] [place] [phone] [id number] [place] [address] 06/21/2024 8:30 AM EST Office Visit Ophthalmology, [facility] [address] [facility] [place] [address] Dewayne Flores DO [address] [place] [address] 07/11/2024 9:00 AM EST Office Visit Transplant Clinic, [place] [address] [place] [address] Marium Forbes MD [address] [place] [address] Cory Razo MD [address] [place] [address] Victor Manuel Nurse Renal Transplant [address] [place] [address] Sophie Morillo, FOOD SERVICE MANAGER [address] [place] [address] 07/11/2024 1:00 PM EST Laboratory Outpatient Laboratory, [place] [address] [place] [address] [place], Lab B1a [address] [place] [address] Scheduled Procedures Name Priority Associated [...] study not interpreted or resulted by a [facility] or [facility] contracted radiologist. Judie White Sharer [facility] (RAD GENERAL) F inal Result documented in this encounter Advance Directives Documents on File Type Date Recorded Patient Haulpak Driver Expl anation Power of Veterans Rehabilitation Counselor 01/15/2021 POWER OF A TTORNEY * Full [...] Advance Directives occurred with: Patient Care Teams Stone Finisher Relationship Specialty Start Date End Date Genet Cool MD [address] [place] [address] [place] [address] PCP - General Internal Medicine 01/06/23 documented as of this encounter
--- OUTSIDE RECORDS SUMMARY | 2024-06-19 05:06 | External Medical Summary ---
Author Name Unknown Address Unknown Organization : Laboratory Report Ordering Provider Test Date Status YAMILA PENA 05/16/2024 07:44:00 Final Observation Date Value Abnormality Reference (Units ) Status REFERENCE LAB SCANNED REPORT 05/16/2024 07:44:00 See Scanned Report Final [facility] STORAGE FEE 05/16/2024 07:44:00 Serum not tested, on hold at [facility] HLA Lab Final Performing Location
[2024-06-19] MEDS ORDERED: LABETALOL HCL IV 5 MG/ML 20ML IV PRN (05:09)
[2024-06-19] MEDS ORDERED: DEXTROSE 50% 50 ML SYRINGE IV PRN (05:09)
[2024-06-19] MEDS ORDERED: ACETAMINOPHEN 325 MG TAB PO PRN (05:09)
[2024-06-19] MEDS ORDERED: GLUCOSE 40% GEL 15 GM TUBE PO PRN (05:09)
[2024-06-19] MEDS ORDERED: APREPITANT 80 MG CAP PO PRN (05:09)
[2024-06-19] MEDS ORDERED: ONDANSETRON INJ 2 MG/ML 2 ML VIAL IV PRN (05:09)
[2024-06-19] MEDS ORDERED: GLUCAGON FOR INJ 1 MG VIAL SQ PRN (05:09)
[2024-06-19] MEDS ORDERED: LORazepam 2 MG/1 ML VIAL IV PRN (05:09)
[2024-06-19] MEDS ORDERED: GLUCOSE 10 TAB/TUBE PO PRN (05:09)
[2024-06-19] MEDS ORDERED: METOCLOPRAMIDE HCL INJ 5 MG/ML 2 ML VIAL IV PRN (05:09)
[2024-06-19] MEDS ORDERED: CARBOHYDRATES FOR HYPOGLYCEMIA PO PRN (05:09)
[2024-06-19 05:35] LABS: Magnesium 2.3 mg/dl (1.7-2.4)
[2024-06-19] MEDS ORDERED: MELATONIN 3 MG TAB PO PRN (05:38)
[2024-06-19] MEDS ORDERED: INSULIN, Rapid-Acting PUMP SC SCH (06:30)
[2024-06-19] MEDS ORDERED: INSULIN ASPART 100 UNITS/ML VIAL SC PRN (06:30)
[2024-06-19] MEDS: PANTOprazole 40 MG TAB PO SCH (07:29)
[2024-06-19] MEDS: CALCIUM ACETATE 667 MG CAP/TAB PO SCH (10:02)
[2024-06-19] MEDS: hydrALAZINE HCL 25 MG TAB PO SCH (10:02)
[2024-06-19] MEDS: carvediloL 12.5 MG TAB PO SCH (10:02)
[2024-06-19] MEDS: Continuous Glucose Monitor SCH (10:03)
[2024-06-19 10:49] LABS: INR 2.7 (0.9-1.1)
--- NOTE | 2024-06-19 15:40 | Hospitalist Progress Note ---
Date of Service June 19, 2024 Assessment & Plan (1) Nausea & vomiting: (2) Hypertension: (3) Controlled diabetes mellitus with kidney complication, with long-term current use of insulin: (4) ESRD (end stage renal disease): (5) CAD (coronary artery disease): (6) History of pulmonary embolism: Plan 53-year-old male with end-stage renal disease on dialysis Thursday/Thursday/Thursday, cyclic vomiting syndrome, gastroparesis presents with 3 days of persistent nausea and vomiting. P #Nausea & vomiting: Differential to include flare of cyclic vomiting versus gastroparesis. Doubt gastroenteritis given lack of diarrhea Admit to PCU Zofran 4 mg IV every 6 hours as needed Ativan 0.5 mg IV every 8 hours as needed - Reglan 10 mg IV every 6 hours as needed Continue home Arepitatnt at 80 mg p.o. daily continue Protonix 40 mg p.o. daily Advance diet as tolerated #Hypertension: Patient with markedly elevated blood pressure upon arrival - improved Continue home antihypertensive regimen including carvedilol 12.5 mg p.o. twice daily, hydralazine 25 mg p.o. 3 times daily. Labetalol 5 mg IV every 6 hours as needed for blood pressure greater than 180/110 Continue to monitor #Controlled diabetes mellitus with kidney complication, with long-term current use of insulin: Patient with insulin pump in place. Blood sugars have been well-controlled. Patient prefers to manage his own insulin pump during this present hospitalization. As he does not appear to be in DKA or hyperglycemic see no reason why he should not. Order placed for patient to manage his own insulin pump Nursing may access patient's continuous glucose monitor Hypoglycemia agents ordered to be used as needed #ESRD (end stage renal disease): Chronic. Stable. Patient receives dialysis Thursday/Thursday/Thursday and follows with Dr. Higgins. - Continue PhosLo - will need nephrology consult if he is here for dialysis on Thursday Repeat chemistry in the morning Renal dosing were needed - Consult placed to nephrology for HD #CAD (coronary artery disease): Chronic. Stable. Patient denies chest pain Continue atorvastatin 20 mg p.o. every afternoon Continue carvedilol 12.5 mg p.o. twice daily Plan chronic anticoagulationpatient is on warfarin Continue Coumadin at home dose Monitor INR Admission and Anticipated Discharge Date Admission Date: June 19, 2024 Supervising Physician Co-Signing Physician Notes I personally examined the patient and verified julien points of history and exam, discussed case, and agree with decision making and plan documented by Dr. Gonzalez. BP improved. Patient reports improvement of nausea/vomiting with supportive care and hopes to advance diet. Insulin pump present. Consult nephrology for HD MWF. Subjective Patient seen and evaluated at bedside this morning. No acute events overnight. Patient was initially sleeping when I saw him. Later in the day he was reasses sed. Per nursing, patient has not had nausea since this morning and is requesting to have his diet advanced. Review of Systems Review of Systems: reviewed, per HPI Physical Exam Physical Exam: Constitutional: no acute distress HEENT: NCAT, no conjunctival injection CV: extremities well-perfused, no LE edema Resp: no increased work of breathing4 GI: nondistended MSK: no gross deformities Skin: warm, dry, no rash appreciated Neuro: alert, oriented, no focal neurologic deficit appreciated Results & Data Results & Data Vital Signs (Past 12 Hours) Vital Signs Temp Pulse Pulse Resp BP BP Pulse Ox 06/19/24 11:22 36.8 C 80 18 133/64 98 06/19/24 08:00 62 06/19/24 07:51 74 06/19/24 07:51 06/19/24 07:34 36.6 C 76 16 176/72 H 98 06/19/24 06:42 75 179/74 H 06/19/24 05:35 78 06/19/24 05:30 06/19/24 05:15 36.6 C 75 20 195/87 H 98 06/19/24 04:30 77 14 179/76 H 97 06/19/24 04:00 75 187/70 H 97 O2 Del Method O2 Flow Rate 06/19/24 11:22 Nasal Cannula 2.0 06/19/24 08:00 06/19/24 07:51 06/19/24 07:51 Nasal Cannula 06/19/24 07:34 Room Air 06/19/24 06:42 06/19/24 05:35 06/19/24 05:30 Nasal Cannula 2 06/19/24 05:15 Nasal Cannula 2 06/19/24 04:30 Nasal Cannula 2 06/19/24 04:00 Nasal Cannula 2 Resident Activity Tracking Resident Involvement: Resident Care Provided Care Provided: Adult Hospital Medicine (5) CAD (coronary artery disease) Associated angina: without angina Coronary Disease-Associated Artery/Lesion type: marshall artery [place] vs. transplanted heart: marshall heart Qualified Code(s): I25.10 - Atherosclerotic heart disease of marshall coronary artery without angina pectoris
[2024-06-19] MEDS: WARFARIN SOD 5 MG TAB PO SCH (16:51)
[2024-06-19] MEDS: ATORVASTATIN 20 MG TAB PO SCH (20:30)
[2024-06-19] MEDS: MIRTAZAPINE TAB 15 MG TAB PO SCH (21:05)
--- NOTE | 2024-06-20 07:28 | Hospitalist Progress Note ---
Date of Service June 20, 2024 Assessment & Plan (1) Nausea & vomiting: (2) Hypertension: (3) Controlled diabetes mellitus with kidney complication, with long-term current use of insulin: (4) ESRD (end stage renal disease): (5) CAD (coronary artery disease): (6) History of pulmonary embolism: Plan 53-year-old male with end-stage renal disease on dialysis Thursday/Thursday/Thursday, cyclic vomiting syndrome, gastroparesis presents with 3 days of persistent nausea and vomiting. P #Nausea & vomiting: Differential to include flare of cyclic vomiting versus gastroparesis. Doubt gastroenteritis given lack of diarrhea Admit to PCU Zofran 4 mg IV every 6 hours as needed Ativan 0.5 mg IV every 8 hours as needed - Reglan 10 mg IV every 6 hours as needed Continue home Arepitatnt at 80 mg p.o. daily continue Protonix 40 mg p.o. daily Advance diet as tolerated #Hypertension: Patient with markedly elevated blood pressure upon arrival - improved Continue home antihypertensive regimen including carvedilol 12.5 mg p.o. twice daily, hydralazine 25 mg p.o. 3 times daily. Labetalol 5 mg IV every 6 hours as needed for blood pressure greater than 180/110 Continue to monitor #Controlled diabetes mellitus with kidney complication, with long-term current use of insulin: Patient with insulin pump in place. Blood sugars have been well-controlled. Patient prefers to manage his own insulin pump during this present hospitalization. As he does not appear to be in DKA or hyperglycemic see no reason why he should not. Order placed for patient to manage his own insulin pump Nursing may access patient's continuous glucose monitor Hypoglycemia agents ordered to be used as needed #ESRD (end stage renal disease): Chronic. Stable. Patient receives dialysis Thursday/Thursday/Thursday and follows with Dr. Higgins. - Continue PhosLo - will need nephrology consult if he is here for dialysis on Thursday Repeat chemistry in the morning Renal dosing were needed - Consult placed to nephrology for HD #CAD (coronary artery disease): Chronic. Stable. Patient denies chest pain Continue atorvastatin 20 mg p.o. every afternoon Continue carvedilol 12.5 mg p.o. twice daily Plan chronic anticoagulationpatient is on warfarin Continue Coumadin at home dose Monitor INR Admission and Anticipated Discharge Date Admission Date: June 19, 2024 Subjective Patient seen and evaluated at bedside this morning. No acute events overnight. Patient was initially sleeping when I saw him. Later in the day he was reassessed. Per nursing, patient has not had nausea since this morning and is requesting to have his diet advanced. Results & Data Results & Data Vital Signs (Past 12 Hours) Vital Signs Temp Pulse Pulse Resp BP Pulse Ox O2 Del Method 06/20/24 07:04 36.6 C 64 14 153/66 H 95 Room Air 06/20/24 02:27 36.7 C 67 16 121/53 L 97 Room Air 06/19/24 23:26 36.9 C 69 14 144/55 H 96 Room Air 06/19/24 23:00 69 06/19/24 22:00 Room Air (5) CAD (coronary artery disease) Associated angina: without angina Coronary Disease-Associated Artery/Lesion type: [place] artery [place] vs. transplanted heart: lime heart Qualified Code(s): I25.10 - Atherosclerotic heart disease of [place] coronary artery without angina pectoris
[2024-06-20 09:17] LABS: Hematocrit (blood only) 30.3 % (42.0-52.0); Hemoglobin 9.8 g/dl (14.0-18.0); Mean Corpuscular Hemoglobin 32.1 pg (25.0-34.0); Mean Corpuscular Hgb Conc 32.3 g/dL (32.0-36.0); Mean Corpuscular Volume 99.3 fL (80.0-100.0); Mean Platelet Volume 9.6 fL (9.4-12.4); Platelet Count 286 K/uL (130-400); RDW Coefficient of Variation 14.4 % (11.5-14.5); RDW Standard Deviation 50.9 fL (36.4-46.3); Red Blood Count 3.05 M/uL (4.70-6.10); White Blood Count 8.15 K/ul (4.8-10.8)
[2024-06-20 09:34] LABS: Albumin Level 3.7 gm/dl (3.4-5.0); BUN Creatinine Ratio 4.9 (10-20); Bilirubin Direct 0.1 mg/dl (0-0.2); Bilirubin,Total 0.4 mg/dl (0.2-1.0); Calcium 8.3 mg/dl (8.6-10.3); Potassium 3.7 mmol/L (3.5-5.1)
[2024-06-20 09:41] LABS: INR 3.1 (0.9-1.1); Prothrombin Time 30.4 Seconds (9.0-12.0)
[2024-06-20] MEDS: HEPARIN SOD (PORCINE) 1000 UNIT/ML IV SCH (12:08)
[2024-06-20] MEDS: HEPARIN SOD (PORCINE) 1000 UNIT/ML IV ONE (12:08)
--- NOTE | 2024-06-20 12:08 | Discharge Summary ---
Date of Service June 20, 2024 Admission HPI Per Admitting Provider Jorge Alberto De Los Santos is a 53yo male with history of DM-I with gastroparesis, Cyclic vomiting, ESRD on HD presenting with intractable nausea and vomiting. Patient developed nausea with vomiting during his dialysis session on Thursday. He denies fever or chills. Denies chest pain, cough, shortness of breath. Denies diarrhea. He reports his blood sugars have been adequate. He was unable to take his medications today due to vomiting therefore his blood pressure is high. No additional complaints at this time In the ER patient is markedly hypertensive at 223/89, mildly hypoxic requiring placement of supplemental oxygen by nasal cannula. Ongoing nausea despite administration of multiple antiemetic agents ER course: Zofran 4 mg IV Phenergan Benadryl 12.5 mg IV Labetalol 10 mg IV Carvedilol 12.5 mg p.o. Labetalol 5 mg IV Hydralazine 25 mg p.o. Hydralazine 5 mg IV Admission Exam Per Admitting Provider General: Patient in moderate distress with ongoing nausea and vomiting, able to answer questions and follow commands Skin: warm, dry, intact, no rashes or lesions HEENT: NC/AT, PERRL, EOMI, anicteric sclera, conjunctiva without injection, external ear normal to inspection and nontender, nares patent, moist mucus membranes, dentition intact, no oropharyngeal lesions, neck supple, trachea midline, no LAD, no thyromegaly, no JVD Heart: +S1/S2, regular, no m/r/g Lungs: equal air entry bilaterally, no rales/rhonchi/wheezes Abd: +BS, soft, NT/ND, no masses/organomegaly/ascites Ext: warm, 2+ pulses in UE/LE bilaterally, no clubbing/cyanosis or edema, dialysis fistula in left upper extremity with palpable thrill Neuro: nonfocal, patient AA&O x 4, speech intact, no facial droop, moving all extremities on command with equal strength 5/5 Principal Diagnosis Intractable Nausea/Vomiting Discharge Exam Constitutional: no acute distress HEENT: NCAT, no conjunctival injection CV: extremities well-perfused, no LE edema Resp: no increased work of breathing GI: nondistended MSK: no gross deformities Skin: warm, dry, no rash appreciated Neuro: alert, oriented, no focal neurologic deficit appreciated Discharge Data Allergies Allergy/AdvReac Type Severity Reaction Status Date / Time shellfish derived Allergy Severe anaphylaxis Verified 05/17/24 14:01 codeine Allergy Intermediate Hives Verified 05/17/24 14:01 promethazine Allergy Intermediate itchy/hives Verified 05/17/24 14:01 Consultations 06/19/24 01:16 ED Decision to Admit Stat 06/19/24 17:14 Consult Nephrology Routine Hospital Course (1) Nausea & vomiting: (2) Hypertension: (3) Controlled diabetes mellitus with kidney complication, with long-term current use of insulin: (4) ESRD (end stage renal disease): (5) CAD (coronary artery disease): (6) History of pulmonary embolism: Plan 53-year-old male with end-stage renal disease on dialysis Thursday/Thursday/Thursday, cyclic vomiting syndrome, gastroparesis presented with 3 days of persistent nausea and vomiting. #Nausea & vomiting: Differential to include flare of cyclic vomiting versus gastroparesis. Less likely gastroenteritis given absence of diarrhea. N/V managed with supportive care: Zofran 4 mg IV every 6 hours as needed Ativan 0.5 mg IV every 8 hours as needed - Reglan 10 mg IV every 6 hours as needed Aprepitant at 80 mg p.o. daily Protonix 40 mg p.o. daily Diet progressively advanced back to regular diet, patient tolerating PO intake at time of discharge. #Hypertension: Continue home antihypertensive regimen - carvedilol 12.5 mg p.o. twice daily, hydralazine 25 mg p.o. 3 times daily. #Controlled diabetes mellitus with kidney complication, with long-term current use of insulin: Continue insulin pump use #ESRD (end stage renal disease): Chronic. Stable. Patient receives dialysis Thursday/Thursday/Thursday and follows with Dr. Higgins. - Continue PhosLo - Pt dialyzed prior to discharge on 06/20/24 #CAD (coronary artery disease): Chronic. Stable. Patient denies chest pain Continue atorvastatin 20 mg p.o. every afternoon Continue carvedilol 12.5 mg p.o. twice daily Total Time Total Time Spent Total Time Spent (In Minutes): see attending attestation Discharge Plan Discharge Items Patient Disposition: Home - Self-Care Reason For Visit: INTRACTABLE NAUSEA/VOMITING, HYPERTENSION Discharge Diagnosis: Intractable nausea/vomiting Activity: Resume your previous activity Non-emergency contact: Primary Care Provider and Open Hearth Furnace Laborer Call non-emergency contact if: you have any medication questions and your symptoms worsen Follow-up/Referrals: Genet Cool MD [Primary Care Provider] - 06/24/24 11:00 am (Hospital follow up scheduled on 06/24/24 at 11:00 with Kori GARRIDO) Diet: Carb Count or DM1 Addtl Attending Provider Instructions: You were admitted to the hospital due to intractable nausea/vomiting and inability to maintain adequate oral intake. You were treated with supportive medications, many of which you take at home. It is not entirely clear what caused your symptoms - we suspect this is either a flare of your cyclic vomiting syndrome or perhaps related your underlying gastroparesis. Please follow up with your primary care provider and your GI doctor shortly after discharge for continued management. No medication changes were made; please continue to take your home medications as previously directed. Pending Studies at Discharge: No Stand-Alone Forms: My [facility] [employer], Smoking Cessation Medications and DC Order Prescriptions: Continued acetaminophen 325 mg capsule 650 mg PO Q4H PRN (Reason: Pain (Scale Score 1-3)) (DME) pen needle, diabetic [Droplet Pen Needle] 31 gauge x 1/4" needle See Rx Instructions .Route Qty: 100 11RF Rx Instructions: use 3 per day carvedilol 12.5 mg tablet 12.5 mg PO BID Qty: 180 3RF Rx Instructions: must administer with a meal/food insulin lispro [Admelog U-100 Insulin lispro] 100 unit/mL solution 70 unit subcut DAILY Rx Instructions: uses thru omnipod mirtazapine 7.5 mg tablet 7.5 mg PO HS midodrine 5 mg tablet 5 mg PO .COMPLEX Rx Instructions: THURSDAY,THURSDAY,THURSDAY BEFORE DIALYSIS melatonin 1 mg tablet 4 mg PO HS PRN (Reason: Sleep) (DME) Omnipod 5 G6 Intro Kit (Gen 5) Cartridge See Rx Instructions .Route Qty: 1 0RF Rx Instructions: change pods every 3 days (DME) Omnipod 5 G6 Pods (Gen 5) Cartridge See Rx Instructions .Route Qty: 10 11RF Rx Instructions: change pod every 3 days hydralazine 25 mg tablet 25 mg PO TID Qty: 270 1RF warfarin 5 mg tablet 2.5 - 5 mg PO DAILY Rx Instructions: DOSE PER COUMADIN CLINIC INSTRUCTION ascorbic acid (vitamin C) [Vitamin C] 500 mg Tablet Extended Release 500 mg PO QAM aprepitant 80 mg capsule 80 mg PO DAILY PRN (Reason: NAUSEA/VOMITING) cholecalciferol (vitamin D3) [Vitamin D3] 50 mcg (2,000 unit) Capsule 50 mcg PO QPM Xphozah 30 mg tablet 30 mg PO BID pantoprazole [Protonix] 40 mg tablet,delayed release (DR/EC) 40 mg PO DAILYBB lorazepam 0.5 mg Tablet 0.5 mg PO UD Rx Instructions: CANNOT VERIFY ON PHARMACY RECORD atorvastatin 20 mg tablet 20 mg PO QPM hydrocodone-acetaminophen 5-325 mg Tablet 1 tab PO Q6H PRN (Reason: pain) Qty: 20 0RF calcium acetate 667 mg tablet 1,334 mg PO TID Qty: 180 0RF Rx Instructions: 2 tabs with meals, 1 tab with snacks. Discharge Orders: Discharge Order (Routine); Ordered 06/20/24 Ordered By: Clyde Pugh Admission Data Admit Date/Time: 06/19/24 01:54 Attending Provider: Obie Argueta Admit Provider: Marielos Cervantes Primary Care Provider: Genet Cool Other Providers: Marielos Cervantes; Lor Guadalupe Other Interventions: Discharge Summary Assessment (RN) Last Done: 06/20/24 16:09 Supervising Physician Co-Signing Physician Notes I personally examined the patient and verified all julien points of history and exam, discussed case, and agree with decision making with Dr Pugh Feeling much better and would like to go home. Vitals noted, in general he is awake and alert pleasant no distress. HEENT normocephalic atraumatic mucous membranes moist. Breathing unlabored no accessory muscle use good effort. Skin without rashes pallor or icterus. Intractable nausea and vomitingappears to have been due to cyclic vomiting syndromenow tractable. Safe/stable for home. Otherwise as above. Resident Activity Tracking Resident Involvement: Resident Care Provided Care Provided: Adult Hospital Medicine
--- NOTE | 2024-06-20 13:21 | Communication Note ---
Date of Service: June 20, 2024 By CMS guidelines, a determination that the admission or continued stay is not medically necessary has been made by a member of the UR committee and a ph ysician for this hospital stay, therefore a Code 44 will be completed and the Inpatient admission will be changed to outpatient.
--- NOTE | 2024-06-20 13:57 | Nephrology Consultation ---
Date of Consultation June 20, 2024 Assessment & Plan (1) ESRD (end stage renal disease): for routine HD today goal 3.5L UF today and tolerating so far > monitor for orthostatic sx after no anemia meds today routine OP heparin (2) AV fistula: art pressures high today > had to turn down Qb for second half of tx but ran OK after that History of Present Illness Reason for Consultation: ESRD on HD Requesting Physician: Dr Argueta Attending Physician: Obie Argueta DO History of Present Illness 53 y/o M whom I'm asked to see for ESRD was admitted on 06/18 for recurrence of intermittently intractable N/V attributed to cyclic vomiting versus gastroparesis. PMH includes ESRD on in center HD, cyclic vomiting syndrome, type I DM w/ proliferative retinopathy, nonocclusive CAD, GERD, HTN w/ labile BP and autonomic dysfunction, nephrolithiasis, and anemia of chronic disease. He's been hospitalized here multiple times for intractable n/v related to gastroparesis/CVS. Past chronic L pleural effusion managed Jan 2021-Jun 2021 w/ pleurex catheter; 09/2023 a/r RLE DVT also has remote hx of PE on AC; hx of Covid 07/2021. He dialyzes under my care MWF via AVF at [facility]. he has in the past had a series of LE fractures but they have been more frequent past 6 mos > 09/2023 w/ multiple R metatarsal /Charcot variant fractures. Injured L knee 04/12 and on 04/21/24 dx'd w/ closed L tibial plateau fracture; he is for conservative mgt w/ in a brace and tylenol. He is adherent w/ his HD treatments and does not shorten or miss; he does often struggle with excessive IDWG and high phosphorus but recently in the past 2-3 mos has done much better w/ volume and diet management. N/V managed with supportive care including zofran, ativan, reglan; his OP aprepitant and PPI were continued. He was advanced to regular diet and is now tolerating po. for d/c later today no n/v since yesterday; tolerating po regular dialysis diet as above. as with last admission in April for this issue, pt thinks it was anxiety that contributed to his sx. no sob, no chest pain, no edema, no confusion, no palpitations or orthopnea; no f/c, . Allergies Allergy/AdvReac Type Severity Reaction Status Date / Time shellfish derived Allergy Severe anaphylaxis Verified 05/17/24 14:01 codeine Allergy Intermediate Hives Verified 05/17/24 14:01 promethazine Allergy Intermediate itchy/hives Verified 05/17/24 14:01 Home Medications Medication Instructions Recorded Confirmed Type acetaminophen 325 mg capsule 650 mg PO Q4H PRN Pain (Scale 09/28/20 06/18/24 History Score 1-3) melatonin 1 mg tablet 4 mg PO HS PRN Sleep 09/18/22 06/18/24 History midodrine 5 mg tablet 5 mg PO .COMPLEX 02/19/23 06/18/24 History mirtazapine 7.5 mg tablet 7.5 mg PO HS 02/19/23 06/18/24 History aprepitant 80 mg capsule 80 mg PO DAILY PRN NAUSEA/VOMITING 12/06/23 06/18/24 History ascorbic acid (vitamin C) 500 mg 500 mg PO QAM 12/06/23 06/18/24 History tablet,extended release (Vitamin C ER) cholecalciferol (vitamin D3) 50 50 mcg PO QPM 12/06/23 06/18/24 History mcg (2,000 unit) capsule (Vitamin D3) warfarin 5 mg tablet 2.5 - 5 mg PO DAILY 12/06/23 06/18/24 History tenapanor 30 mg tablet (Xphozah) 30 mg PO BID 12/08/23 06/18/24 History insulin pump cart,automated,BT #10 ea 12/29/23 06/18/24 Rx (Omnipod 5 G6 Pods (Gen 5) subcutaneous cartridge) insulin pump cartridge,automated #1 ea 12/29/23 06/18/24 Rx dose,BT with controller subcutaneous (Omnipod 5 G6 Intro Kit (Gen 5) subcutaneous cartridge with controller) pen needle, diabetic 31 gauge x #100 ea 01/01/24 06/18/24 Rx 1/4" (Droplet Pen Needle) carvedilol 12.5 mg tablet 12.5 mg PO BID #180 tabs 02/11/24 06/18/24 Rx insulin lispro 100 unit/mL 70 unit subcut DAILY 04/19/24 06/18/24 History subcutaneous solution (Admelog U-) atorvastatin 20 mg tablet 20 mg PO QPM 04/27/24 06/18/24 History calcium acetate 667 mg tablet 1,334 mg (2 x 667 mg) PO TID #180 04/29/24 06/18/24 Rx tabs hydrocodone 5 mg-acetaminophen 325 1 tab PO Q6H PRN pain #20 tabs 04/29/24 06/18/24 Rx mg tablet hydralazine 25 mg tablet 25 mg PO TID #270 tabs 05/17/24 06/18/24 Rx lorazepam 0.5 mg tablet 0.5 mg PO UD 06/18/24 06/18/24 History pantoprazole 40 mg tablet,delayed 40 mg PO DAILYBB 06/18/24 06/18/24 History release (Protonix) Patient History Medical History History of pulmonary embolism 11/2020; unk etiology; was on warfarin (taken off 05/2021) Dialysis patient Deep vein thrombosis (DVT) of right lower extremity History of nephrolithiasis Metatarsal fracture Urolithiasis Surgical History History of colonoscopy S/P arteriovenous (AV) fistula creation left arm History of cataract surgery History of esophagogastroduodenoscopy (EGD) (~03/08/20) History of open reduction and internal fixation (ORIF) procedure right hip Nausea and vomiting after administration of anesthetic agent History of lithotripsy History of cardiac cath x2---07/28/23 @ [facility] [address], no stents--per pt done for transplant list and 10/2018 @ [facility] (no stents) History of hip surgery left HIP ARTHROSCOPY H/O shoulder surgery RIGHT History of appendectomy Family History Grandfather Myocardial infarction Grandfather (Maternal) Family history of diabetes mellitus Uncle Myocardial infarction Father Hypertension Mother Kidney stone Other No family history of adverse response to anesthesia Denies family history of Colon cancer Ovarian cancer Prostate cancer Breast cancer Social History Smoking Status: Never smoker Tobacco Type: Smokeless Tobacco (Dip or Chew) Second Hand Exposure: No; Do You Dip or Chew Tobacco: No; Hx Alcohol Use: No Hx Substance Use: No Preferred Language: Bahamian Communication Ability: Effective Visual Impairment: No Limitations Hearing Ability: Normal Milk Bottler Required: No Beliefs That Will Affect Care: None marital status: Current Living Situation: Parent Current Living Situation Comment: Lives with parents current occupational status: disabled How many Children do You have: 2 Feels Safe at Home: Yes Childhood Exposure to Second-Hand Smoke: Yes Diet: regular caffeine: Yes Dental Care, Regularly: No Physical Activity Frequency: 1-2 Times per Week Seatbelt Use: always Sunscreen Use: Yes Gender Identity: Male Assistive Devices: Brace/Splint/Immobilizer Review of Systems 2 Review of Systems: All systems reviewed & are unremarkable except as noted in HPI & below Physical Exam 2 Constitutional: well developed and well nourished Eyes: EOM intact bilaterally ENMT: Mouth: + dry oral mucous membranes Respiratory: normal respiratory effort Auscultation: + diminished lung sounds Gastrointestinal (Abdomen): Inspection/Auscultation: normal bowel sounds P ercussion/Palpation: abdomen soft; abdomen nontender Musculoskeletal: Extremities: strength 5/5 throughout Skin: no rashes, warm and dry Neurologic: spicer, fluent speech, no tremor Results & Data Vital Signs (Past 12 Hours) Vital Signs Temp Pulse Pulse Pulse Resp BP BP 06/20/24 13:30 69 161/69 H 06/20/24 13:00 68 176/75 H 06/20/24 12:30 67 195/86 H 06/20/24 12:00 66 178/78 H 06/20/24 11:30 66 182/86 H 06/20/24 11:00 67 170/78 H 06/20/24 10:47 68 158/67 H 06/20/24 10:36 36.8 C 70 06/20/24 07:34 65 06/20/24 07:04 36.6 C 64 14 153/66 H 06/20/24 02:27 36.7 C 67 16 121/53 L Pulse Ox O2 Del Method 06/20/24 13:30 06/20/24 13:00 06/20/24 12:30 06/20/24 12:00 06/20/24 11:30 06/20/24 11:00 06/20/24 10:47 06/20/24 10:36 06/20/24 07:34 06/20/24 07:04 95 Room Air 06/20/24 02:27 97 Room Air Laboratory Results 06/20/24 08:22 06/20/24 08:22
--- NOTE | 2024-06-20 14:15 | Dialysis Progress Note ---
Date of Service June 20, 2024 Assessment & Plan (1) ESRD (end stage renal disease): Plan: for routine HD today goal 3.5L UF today and tolerating so far > monitor for orthostatic sx after tx no anemia meds today but will resume as OP BP elevated somewhat and will push UF today K 3.7 >> on 3K bath routine OP heparin (2) AV fistula: Plan: art pressures high today > had to turn down Qb for second half of tx but ran OK after that; no reported issues >monitor function as OP (3) Anemia in ESRD (end-stage renal disease): Plan: hgb 9.8 > continue routine OP epo after d/c as well as IV iron Admission and Anticipated Discharge Date Admission Date: June 19, 2024 Subjective seen during dialysis tx. no sob, no furthe rn/v since yesterday. some elevated arterial pressures. Review of Systems 2 Review of Systems: All systems reviewed & are unremarkable except as noted in Subjective Physical Exam 2 Constitutional: well developed, + thin and + frail appearing; no acute distress Eyes: EOM intact bilaterally ENMT: Mouth: + dry oral mucous membranes Respiratory: normal respiratory effort Auscultation: + diminished lung sounds Cardiovascular: Rate/Rhythm: regular rate and regular rhythm Heart Sounds: + murmur Extremities: + AV fistula (L AVF); no edema Gastrointestinal (Abdomen): Inspection/Auscultation: normal bowel sounds P ercussion/Palpation: abdomen soft; abdomen nontender Musculoskeletal: Extremities: strength 5/5 throughout (knee brace) Skin: no rashes, warm and dry Results & Data Vital Signs (Past 12 Hours) Vital Signs Temp Pulse Pulse Pulse Resp BP BP 06/20/24 13:30 69 161/69 H 06/20/24 13:00 68 176/75 H 06/20/24 12:30 67 195/86 H 06/20/24 12:00 66 178/78 H 06/20/24 11:30 66 182/86 H 06/20/24 11:00 67 170/78 H 06/20/24 10:47 68 158/67 H 06/20/24 10:36 36.8 C 70 06/20/24 07:34 65 06/20/24 07:04 36.6 C 64 14 153/66 H 06/20/24 02:27 36.7 C 67 16 121/53 L Pulse Ox O2 Del Method 06/20/24 13:30 06/20/24 13:00 06/20/24 12:30 06/20/24 12:00 06/20/24 11:30 06/20/24 11:00 06/20/24 10:47 06/20/24 10:36 06/20/24 07:34 06/20/24 07:04 95 Room Air 06/20/24 02:27 97 Room Air Laboratory Results 06/20/24 08:22 06/20/24 08:22
[2024-06-20 15:25] VITALS: BP 180/71; RESP 16; TEMP 98.4; O2SAT 96
[2024-06-20] MEDS: MIDODRINE HCL 2.5 MG TAB PO SCH (15:26)
[2024-06-20 16:10] VITALS: PULSE 64
--- NOTE | 2024-06-20 18:18 | Billing Data ---
Date of Service June 20, 2024 Coding Level of Care Code 18725 IN/OBS DISCH 30 MIN/LESS
== END 2024-06-20 17:56 | disposition home or self-care (01) | DRG 73 ==
LOC: ED 20:47 → 2S 06-19 01:54 → SUATTDRO 06-19 01:54 → INTOOBSV 06-19 01:54 → 2S 06-19 04:42